=== PATIENT | male | born 1940 | race Caucasian/White ===

== ENCOUNTER 2020-06-10 07:03 | Day surgery (SDC) | payer MEDICARE, SELFPAY ==
--- NOTE | 2020-06-03 13:26 | HO.ANESPROP2 ---
Documented by User: Alexandra Martinez 06/03/20 13:34 HPI - Anesthesia Eval Consult details Narrative: 80yo M for Colonoscopy [facility] Past Medical History Medical History CAD (coronary artery disease) Diabetes Elevated cholesterol Former smoker HTN (hypertension) Insulin pump in place Surgical History Surgical History H/O colonoscopy Hx of hemorrhoidectomy Hx of lumbar discectomy Social History Social History Smoking Status: Former smoker Use of substances other than those prescribed or required for medical reasons: No Advance Directives: No Advance Directives Information Provided: Yes Recently lost weight without trying: No Narrative Narrative: Pt with [facility] admit 07/2019 with syncopal episode. Found to be orthostatic. Echo OK and BP meds adjusted. Meds Allergies Allergy/AdvReac Type Severity Reaction Status Date / Time Penicillins Allergy Severe ITCHING-SEV Verified 05/29/20 14:36 ERE piperacillin [From Zosyn] Allergy Mild JAUNDICE Verified 06/10/20 07:28 tazobactam [From Zosyn] Allergy Mild JAUNDICE Verified 06/10/20 07:28 Home Medications Medication Instructions Recorded Confirmed Type Novolog U-100 Insulin aspart 06/01/20 06/01/20 History atorvastatin 40 mg PO BEDTIME 06/01/20 06/01/20 History citalopram 20 mg PO DAILY 06/01/20 06/01/20 History gabapentin 600 mg PO 06/01/20 History losartan 100 mg PO DAILY 06/01/20 06/01/20 History glucose 06/10/20 History Exam Exam Date and Time: June 03, 2020 1326 Height,Weight and Vital Signs: Height 5 ft 6.14 in Narrative Narrative: EKG 07/2019: NSR, LAD, Incomp RBBB, LVH with repol abn ECHO 07/2019: LVEF 60-65%; mild calc of AV; mod mitral leaflet thickening; mild MAC Assessment and Plan Assessment Anesthesia Assessment: Chart Reviewed Documented by User: Veronica Green 06/10/20 08:04 PMFSH Past Medical History Medical History CAD (coronary artery disease) Diabetes Elevated cholesterol Former smoker HTN (hypertension) Insulin pump in place Surgical History Surgical History H/O colonoscopy Hx of hemorrhoidectomy Hx of lumbar discectomy Social History Social History Smoking Status: Former smoker Use of substances other than those prescribed or required for medical reasons: No Advance Directives: No Advance Directives Information Provided: Yes Recently lost weight without trying: No Meds Allergies Allergy/AdvReac Type Severity Reaction Status Date / Time Penicillins Allergy Severe ITCHING-SEV Verified 05/29/20 14:36 ERE piperacillin [From Zosyn] Allergy Mild JAUNDICE Verified 06/10/20 07:28 tazobactam [From Zosyn] Allergy Mild JAUNDICE Verified 06/10/20 07:28 Home Medications Medication Instructions Recorded Confirmed Type Novolog U-100 Insulin aspart 06/01/20 06/01/20 History atorvastatin 40 mg PO BEDTIME 06/01/20 06/01/20 History citalopram 20 mg PO DAILY 06/01/20 06/01/20 History gabapentin 600 mg PO 06/01/20 History losartan 100 mg PO DAILY 06/01/20 06/01/20 History glucose 06/10/20 History Exam Airway Mallampati Class: II TM Dist: >3cm Neck ROM: Limited Loose/Missing/Broken Teeth: No Heart: RRR Lungs: CTA Assessment and Plan Assessment Anesthesia Assessment: Anesthesia Plan Discussed Final Anesthetic Review NPO: Yes ASA Class: III Final Preanesthetic Review: Meds/Allgs Chart Reviewed, Consent Obtained/Reviewed and Anes Risks/Benef Reviewed Patient Risk: Intermediate Procedure Risk: Low Anesthetic Plan Anesthetic Plan: MAC: Disposition: Standard PACU
[2020-06-10 07:22] VITALS: BP 162/100; PULSE 75; RESP 16; TEMP 36.3; O2SAT 98; BMI 27.3
[2020-06-10 07:35] VITALS: BP 168/88; PULSE 81
--- NOTE | 2020-06-10 07:37 | MHC.SHP ---
Pre-Procedural Eval Section B Chief Complaint: Hemorrhage of Anus and Rectum Details of Present Illness: brother with rectal cancer Relevant Family History (Specify if Yes): Yes Relevant Social History: None Present Medications: see Short Stay Collaborative assessment Medical History: Significant History (CAD (coronary artery disease) Diabetes Elevated cholesterol Former smoker HTN (hypertension) Insulin pump in place) History of Previous Operations: Relevant previous surgery/procedure and date(s) (colonoscopy) Allergies: Allergies Allergy/AdvReac Type Severity Reaction Status Date / Time Penicillins Allergy Severe ITCHING-SEV Verified 05/29/20 14:36 ERE piperacillin [From Zosyn] Allergy Mild JAUNDICE Verified 06/10/20 07:28 tazobactam [From Zosyn] Allergy Mild JAUNDICE Verified 06/10/20 07:28 Review of Systems Sugical H&P ROS: Negative: Constitution, Cardiovascular, Respiratory, Neurological, Psychiatric, Hem-Onc, Allergic/Immunologic, Gastrointestinal, Genitourinary, Musculoskeletal, Integumentary, Endocrine and Eyes/Ears/Nose/Throat Exam Surgical H&P Exam: Normal: HEENT, Normal: Heart, Normal: Lungs, Normal: Extremities, Normal: Abdomen, Normal: Skin and Normal: Neurological Plan Diagnosis/Plan: Unchanged I have reviewed the history and physical and performed a pertinent physical examination on my patient. No changes have occurred unless specified.
[2020-06-10] MEDS: Lactated Ringers 1,000 ML 100 ML IVCONT (07:41)
--- NOTE | 2020-06-10 09:15 | P.BOP_ITS ---
Brief Operative Note Date of Service: 06/10/20 Pre-op diagnosis: rectal bleeding Post-op diagnosis: same Procedure: Operative Information Procedure Description: Colonoscopy COLONOSCOPY Instrument: Olympus variable stiffness pediatric scope 190L Colonoscopy Monitoring: Vital signs and clinical assessment, continuous EKG monitoring, Pulse oximetry, Carbon Dioxide monitoring and blood pressure monitoring were done throughout the procedure. Colon withdrawal time was 23 minutes. Procedure: The patient was placed in the left lateral decubitis position and pre-procedure medications were administered. After a digital rectal examination of the ano-rectum, the video colonoscope was inserted into the rectum and advanced through the colon to the cecum/TI. The colonoscope was slowly withdrawn in a retrograde panoramic fashion and the colon mucosa was carefully examined including a retroflexed view of the rectum. Findings and interventions are described below. Procedure Difficulty: easy Findings: scattered small diverticula thru out colon Rectal exam--normal, no masses felt Terminal Ileum-unable to intubate due to angulation of TI Cecum: 6-8 mm sessile polyp removed with forceps Ascending Colon: normal Transverse Colon - 8-10 mm sessile polyp removed with forceps Descending Colon:normal Sigmoid Colon: normal Rectum: Retroflexion with small to medium sized internal hemorrhoids, grade II with some red power Anorectum - internal hemorrhoids seen at anal verge Colon preparation: [place] Bowel Preparation Scale Right colon; 2 Transverse colon: 3 Left colon; 3 (0 = Unprepared colon segment with mucosa not seen due to solid stool that cannot be cleared. 1 = Portion of mucosa of the colon segment seen, but other areas of the colon segment not well seen due to staining, residual stool and/or opaque liquid. 2 = Minor amount of residual staining, small fragments of stool and/or opaque liquid, but mucosa of colon segment seen well. 3 = Entire mucosa of colon segment seen well with no residual staining, small fragments of stool or opaque liquid) Impression and Post Procedure Diagnosis: polyps x 2 internal hemorrhoids diverticular disease Plan: High fiber diet leaflet Avoid straining at stool, epsom salts and sitz bath, anusol supps or cream prn Repeat Colonoscopy in 5 years if health allows or earlier if clinically indicated Above findings were reviewed with the patient and relevant handouts were provided if indicated. Surgeon: Kemi Pelaez MD Anesthesia: MAC Estimated blood loss (mL): 0 Condition: stable Disposition: PACU
[2020-06-10 09:19] VITALS: BP 111/63; PULSE 62; RESP 14; TEMP 36.1; O2SAT 98
[2020-06-10 09:34] VITALS: BP 127/58; PULSE 65; RESP 13; TEMP 36.1; O2SAT 98
--- NOTE | 2020-06-10 10:24 | HO.POSTANES ---
Post Anesthesia Evaluation Post Anesthesia Evaluation Vital Signs: Vital Signs Temp Pulse Resp BP Pulse Ox 06/10/20 09:34 96.9 F 65 13 127/58 L 98 06/10/20 09:19 96.9 F 62 14 111/63 98 06/10/20 07:35 81 168/88 H 06/10/20 07:22 97.3 F 75 16 162/100 H 98 Anesthesia: General (tiva) Mental Status: Awake Pain Control: Satisfactory Nausea/Vomiting: None Hydration: Adequate Anesthesia-Related Issues: No Anes. Related Issues (hematoma at IV insertion site. Ice pack applied. RN to assess via telephone tomorrow.)
== END 2020-06-10 10:30 | disposition home or self-care (01) ==
PROVIDERS: PCP Internal Medicine; Visit Provider Internal Medicine Gastroenterology
PROC: 0DJD8ZZ Inspection of Lower Intestinal Tract, Via Natural or Artificial Opening Endoscopic (ICD-10-PCS; CPT 45378; principal; 2020-06-10 08:30)
DX: K62.5 Hemorrhage of anus and rectum (principal); D12.0 Benign neoplasm of cecum; K63.5 Polyp of colon; K57.30 Diverticulosis of large intestine without perforation or abscess without bleeding; K64.8 Other hemorrhoids; Z85.048 Personal history of other malignant neoplasm of rectum, rectosigmoid junction, and anus; I10 Essential (primary) hypertension; E11.9 Type 2 diabetes mellitus without complications; Z79.4 Long term (current) use of insulin; Z96.41 Presence of insulin pump (external) (internal); Z88.0 Allergy status to penicillin; Z87.891 Personal history of nicotine dependence
CPT/HCPCS: 45380; 88305

== ENCOUNTER → 2020-07-10 10:27 | Outpatient (BNVA) | payer MEDICARE, SELFPAY | PROVIDERS: PCP Internal Medicine; Visit Provider Internal Medicine Gastroenterology | DX: Z13.89 Encounter for screening for other disorder (principal) | CPT/HCPCS: Q3014 ==

== ENCOUNTER 2022-06-24 12:43 | Outpatient (REF) | payer OTHER, SELFPAY ==
[2022-06-24 14:26] LABS: MANUAL DIFF FLAG NO
[2022-06-24 15:35] LABS: Basophils Percent Auto 0.3 % (0-2); Eosinophils Percent Auto 0.2 % (0-4); Hematocrit 41.4 % (42.0-52.0); Hemoglobin 13.4 g/dl (14.0-18.0); Imm Gran Abs Auto 0.07 X10*3/uL (0.00-0.03); Imm Gran Pct Auto 0.6 % (0.0-0.4); Lymphocytes Absolute Auto 1.6 X10*3/uL (1.2-4.9); Lymphocytes Percent Auto 13.7 % (20-40); Mean Corpuscular HGB Conc 32.4 g/dl (31.0-36.0); Mean Corpuscular Hemoglobin 29.2 pg (27.0-33.0); Mean Corpuscular Volume 90.2 fL (80.0-98.0); Mean Platelet Volume 9.3 fL (9.4-12.4); Monocytes Absolute Auto 0.7 X10*3/uL (0.1-1.2); Monocytes Percent Auto 5.8 % (2-11); Neutrophils Absolute Auto 9.1 x10*3/uL (2.0-8.3); Neutrophils Percent Auto 79.4 % (45-73); Platelet Count 190 X10*3/uL (160-400); Red Blood Count 4.59 X10*6/uL (4.60-5.80); Red Cell Distribution Width 13.8 % (11.0-16.0); White Blood Count 11.4 X10*3/uL (4.8-10.8)
[2022-06-24 16:14] LABS: Alanine Aminotransferase 22 U/L (0-40); Alkaline Phosphatase 115 U/L (39-117); Anion Gap 15 (12-20); Aspartate Amino Transferase 23 U/L (5-37); Bilirubin Total 0.8 mg/dL (0.0-1.0); Blood Urea Nitrogen 20 mg/dL (9-16); C Reactive Protein < 0.10 mg/dL (< or = 0.50); Calcium 9.8 mg/dL (8.4-10.2); Carbon Dioxide 26 mmol/L (22-29); Chloride 104 mmol/L (96-108); Estimated Glomerular Filt Rate > 60; Glucose Random 123 mg/dL (60-115); Potassium 4.3 mmol/L (3.3-5.1); Sodium 141 mmol/L (135-145); Total Protein 5.9 g/dL (6.5-8.0)
[2022-06-24 17:06] LABS: Erythrocyte Sedimentation Rate 4 MM/HR (0-15)
[2022-06-27 09:09] LABS: TS Negative Control Passed; TS Panel A 3; TS Panel B 2; TS Positive Control Passed; TSpotTB Negative (Negative)
[2022-06-27 09:30] LABS: HBS Num1 0.29 mIU/mL (0-7.99); HBc Num1 0.06 S/CO (0.00-0.79); HBsAGNum1 0.26 S/CO (0.00-0.99); Hepatitis A Antibody IgM 0.22 Index (0-0.79); Hepatitis B Core Antibody Nonreactive (Nonreactive); Hepatitis B Surface Antigen Negative (Negative); ~HepC Num1 0.05 S/CO (0.00-0.79); ~Hepatitis A Antibody IgM Nonreactive (Nonreactive); ~Hepatitis B Surface Antibody NONREACTIVE (Nonreactive); ~Hepatitis C Antibody Nonreactive (Nonreactive)
== END 2022-06-24 12:44 | disposition home or self-care (01) ==
LOC: HO.LAB 12:43
PROVIDERS: PCP Internal Medicine; Visit Provider Student in an Organized Health Care Education/Training Program
DX: Z11.59 Encounter for screening for other viral diseases (principal); Z11.7 Encounter for testing for latent tuberculosis infection; M06.09 Rheumatoid arthritis without rheumatoid factor, multiple sites; M80.08XA Age-related osteoporosis with current pathological fracture, vertebra(e), initial encounter for fracture
CPT/HCPCS: 36415; 80053; 84550; 85025; 85652; 86140; 86481; 86704; 86706; 86709; 86803; 87340; 99202

== ENCOUNTER 2022-07-19 14:27 | Outpatient (REF) | payer OTHER, SELFPAY ==
--- NOTE | ~2022-07-19 | XR_ITS ---
EXAMINATION: XR KNEE, RIGHT XR KNEE, LEFT XR KNEE, STANDING, BILATERAL CLINICAL INFORMATION: Rheumatoid arthritis. COMPARISON: None TECHNIQUE: AP upright of both knees. Tunnel view lateral view and patellar view of each knee. FINDINGS: RIGHT KNEE: The medial and lateral compartments are normal. Patellofemoral compartment shows joint space narrowing and marginal osteophytes indicative of bhwd-fc-rqcaipry osteoarthritis. Small ossification adjacent to the lateral aspect of the joint likely reflecting capsular ossification but cannot exclude loose body. No effusion. Arterial calcification. LEFT KNEE: Medial and lateral compartments unremarkable. Patellofemoral compartment marginal osteophytes indicative of mild osteoarthritis. Prominent calcification or ossification within the region of the distal quadriceps tendon may be sequela of old quadriceps tendon tear or prominent enthesophytes. Small joint effusion. Arterial calcification.. XR/XR knee RT 3V IMPRESSION: RIGHT KNEE: Exwe-nb-gqsaksfl patellofemoral arthrosis. Possible loose body. LEFT KNEE: Remb-dj-djmlfcqw patellofemoral arthrosis. Possible old quadriceps tendon tear.
--- NOTE | ~2022-07-19 | XR_ITS ---
EXAMINATION: XR KNEE, RIGHT XR KNEE, LEFT XR KNEE, STANDING, BILATERAL CLINICAL INFORMATION: Rheumatoid arthritis. COMPARISON: None TECHNIQUE: AP upright of both knees. Tunnel view lateral view and patellar view of each knee. FINDINGS: RIGHT KNEE: The medial and lateral compartments are normal. Patellofemoral compartment shows joint space narrowing and marginal osteophytes indicative of faqb-gy-sfnanroo osteoarthritis. Small ossification adjacent to the lateral aspect of the joint likely reflecting capsular ossification but cannot exclude loose body. No effusion. Arterial calcification. LEFT KNEE: Medial and lateral compartments unremarkable. Patellofemoral compartment marginal osteophytes indicative of mild osteoarthritis. Prominent calcification or ossification within the region of the distal quadriceps tendon may be sequela of old quadriceps tendon tear or prominent enthesophytes. Small joint effusion. Arterial calcification.. XR/XR knee LT 3V IMPRESSION: RIGHT KNEE: Jfvr-if-zgmgkdmy patellofemoral arthrosis. Possible loose body. LEFT KNEE: Btjt-gk-cpueixls patellofemoral arthrosis. Possible old quadriceps tendon tear.
--- NOTE | ~2022-07-19 | XR_ITS ---
EXAMINATION: XR KNEE, RIGHT XR KNEE, LEFT XR KNEE, STANDING, BILATERAL CLINICAL INFORMATION: Rheumatoid arthritis. COMPARISON: None TECHNIQUE: AP upright of both knees. Tunnel view lateral view and patellar view of each knee. FINDINGS: RIGHT KNEE: The medial and lateral compartments are normal. Patellofemoral compartment shows joint space narrowing and marginal osteophytes indicative of qjbf-yu-yxoyvdyz osteoarthritis. Small ossification adjacent to the lateral aspect of the joint likely reflecting capsular ossification but cannot exclude loose body. No effusion. Arterial calcification. LEFT KNEE: Medial and lateral compartments unremarkable. Patellofemoral compartment marginal osteophytes indicative of mild osteoarthritis. Prominent calcification or ossification within the region of the distal quadriceps tendon may be sequela of old quadriceps tendon tear or prominent enthesophytes. Small joint effusion. Arterial calcification.. XR/XR knee standing BI IMPRESSION: RIGHT KNEE: Qgku-on-wpvkvftj patellofemoral arthrosis. Possible loose body. LEFT KNEE: Qgrj-qa-strtcsow patellofemoral arthrosis. Possible old quadriceps tendon tear.
== END 2022-07-19 14:28 | disposition home or self-care (01) ==
LOC: HO.XRAY 14:27
PROVIDERS: PCP Internal Medicine; Visit Provider Student in an Organized Health Care Education/Training Program
DX: M17.12 Unilateral primary osteoarthritis, left knee (principal); M06.09 Rheumatoid arthritis without rheumatoid factor, multiple sites; M80.08XA Age-related osteoporosis with current pathological fracture, vertebra(e), initial encounter for fracture; Z79.631 Long term (current) use of antimetabolite agent; Z79.899 Other long term (current) drug therapy
CPT/HCPCS: 20610; 73562; 73565; 99212

== ENCOUNTER → 2022-09-06 12:41 | Outpatient (BNVA) | payer OTHER, SELFPAY | PROVIDERS: PCP Internal Medicine; Visit Provider Student in an Organized Health Care Education/Training Program | DX: M06.09 Rheumatoid arthritis without rheumatoid factor, multiple sites (principal); M80.08XA Age-related osteoporosis with current pathological fracture, vertebra(e), initial encounter for fracture; Z79.631 Long term (current) use of antimetabolite agent | CPT/HCPCS: 99212 ==

== ENCOUNTER 2022-09-15 11:47 | Outpatient (REF) | payer OTHER, SELFPAY ==
[2022-09-15 12:06] LABS: MANUAL DIFF FLAG NO
[2022-09-15 13:25] LABS: Basophils Absolute Auto 0.1 X10*3/uL (0.0-0.2); Basophils Percent Auto 0.6 % (0-2); Eosinophils Absolute Auto 0.3 X10*3/uL (0.0-0.4); Eosinophils Percent Auto 2.1 % (0-4); Hematocrit 36.9 % (42.0-52.0); Hemoglobin 11.9 g/dl (14.0-18.0); Imm Gran Abs Auto 0.07 X10*3/uL (0.00-0.03); Imm Gran Pct Auto 0.6 % (0.0-0.4); Lymphocytes Absolute Auto 1.9 X10*3/uL (1.2-4.9); Lymphocytes Percent Auto 15.5 % (20-40); Mean Corpuscular HGB Conc 32.2 g/dl (31.0-36.0); Mean Corpuscular Hemoglobin 28.9 pg (27.0-33.0); Mean Corpuscular Volume 89.6 fL (80.0-98.0); Mean Platelet Volume 9.3 fL (9.4-12.4); Monocytes Absolute Auto 1.3 X10*3/uL (0.1-1.2); Monocytes Percent Auto 10.8 % (2-11); Neutrophils Absolute Auto 8.4 x10*3/uL (2.0-8.3); Neutrophils Percent Auto 70.4 % (45-73); Platelet Count 221 X10*3/uL (160-400); Red Blood Count 4.12 X10*6/uL (4.60-5.80); Red Cell Distribution Width 16.9 % (11.0-16.0)
[2022-09-15 13:55] LABS: Alanine Aminotransferase 20 U/L (0-40); Albumin Level 3.7 g/dL (3.5-5.0); Alkaline Phosphatase 107 U/L (39-117); Anion Gap 13 (12-20); Aspartate Amino Transferase 20 U/L (5-37); Bilirubin Total 0.8 mg/dL (0.0-1.0); Blood Urea Nitrogen 23 mg/dL (9-16); C Reactive Protein < 0.10 mg/dL (< or = 0.50); Calcium 8.9 mg/dL (8.4-10.2); Carbon Dioxide 26 mmol/L (22-29); Chloride 105 mmol/L (96-108); Estimated Glomerular Filt Rate > 60; Glucose Random 154 mg/dL (60-115); Potassium 4.1 mmol/L (3.3-5.1); Sodium 140 mmol/L (135-145); Total Protein 5.4 g/dL (6.5-8.0)
[2022-09-15 14:04] LABS: Erythrocyte Sedimentation Rate 9 MM/HR (0-15)
== END 2022-09-15 11:48 | disposition home or self-care (01) ==
LOC: HO.LAB 11:47
PROVIDERS: PCP Internal Medicine; Visit Provider Student in an Organized Health Care Education/Training Program
DX: M06.9 Rheumatoid arthritis, unspecified (principal)
CPT/HCPCS: 36415; 80053; 85025; 85652; 86140

== ENCOUNTER 2022-10-25 08:33 | Outpatient (REF) | payer OTHER, SELFPAY ==
[2022-10-25 08:50] LABS: MANUAL DIFF FLAG NO
[2022-10-25 09:28] LABS: Basophils Percent Auto 0.3 % (0-2); Eosinophils Percent Auto 0.6 % (0-4); Hematocrit 38.9 % (42.0-52.0); Hemoglobin 12.2 g/dl (14.0-18.0); Imm Gran Abs Auto 0.04 X10*3/uL (0.00-0.03); Imm Gran Pct Auto 0.6 % (0.0-0.4); Lymphocytes Absolute Auto 2.5 X10*3/uL (1.2-4.9); Lymphocytes Percent Auto 34.9 % (20-40); Mean Corpuscular HGB Conc 31.4 g/dl (31.0-36.0); Mean Corpuscular Hemoglobin 28.9 pg (27.0-33.0); Mean Corpuscular Volume 92.2 fL (80.0-98.0); Mean Platelet Volume 9.3 fL (9.4-12.4); Monocytes Absolute Auto 0.9 X10*3/uL (0.1-1.2); Monocytes Percent Auto 13.2 % (2-11); Neutrophils Absolute Auto 3.6 x10*3/uL (2.0-8.3); Neutrophils Percent Auto 50.4 % (45-73); Platelet Count 146 X10*3/uL (160-400); Red Blood Count 4.22 X10*6/uL (4.60-5.80); Red Cell Distribution Width 17.6 % (11.0-16.0)
[2022-10-25 10:08] LABS: Erythrocyte Sedimentation Rate 7 MM/HR (0-15)
[2022-10-25 12:10] LABS: Alanine Aminotransferase 26 U/L (0-40); Albumin Level 3.7 g/dL (3.5-5.0); Alkaline Phosphatase 104 U/L (39-117); Anion Gap 13 (12-20); Aspartate Amino Transferase 25 U/L (5-37); Blood Urea Nitrogen 13 mg/dL (9-16); C Reactive Protein 0.57 mg/dL (< or = 0.50); Carbon Dioxide 27 mmol/L (22-29); Chloride 107 mmol/L (96-108); Estimated Glomerular Filt Rate > 60; Glucose Random 153 mg/dL (60-115); Potassium 3.8 mmol/L (3.3-5.1); Sodium 143 mmol/L (135-145); Total Protein 5.4 g/dL (6.5-8.0)
== END 2022-10-25 08:34 | disposition home or self-care (01) ==
LOC: HO.LAB 08:33
PROVIDERS: PCP Internal Medicine; Visit Provider Student in an Organized Health Care Education/Training Program
DX: Z79.631 Long term (current) use of antimetabolite agent (principal)
CPT/HCPCS: 36415; 80053; 85025; 85652; 86140

== ENCOUNTER → 2022-10-28 10:10 | Outpatient (BNVA) | payer OTHER, SELFPAY | PROVIDERS: PCP Internal Medicine; Visit Provider Student in an Organized Health Care Education/Training Program | DX: M06.09 Rheumatoid arthritis without rheumatoid factor, multiple sites (principal); M80.08XA Age-related osteoporosis with current pathological fracture, vertebra(e), initial encounter for fracture; R22.9 Localized swelling, mass and lump, unspecified | CPT/HCPCS: 99212 ==

== ENCOUNTER → 2022-11-09 09:39 | Outpatient (BNVA) | payer OTHER, SELFPAY | PROVIDERS: PCP Internal Medicine; Referring Provider Internal Medicine; Visit Provider Surgery | DX: M06.30 Rheumatoid nodule, unspecified site (principal) | CPT/HCPCS: 99202 ==

== ENCOUNTER 2022-11-10 10:45 | Day surgery (SDC) | payer OTHER, SELFPAY ==
[2022-11-08 13:52] VITALS: BMI 28.2
--- NOTE | 2022-11-09 12:45 | P.CONAN_ITS ---
Documented by User: Alexanrda Martinez NP 11/09/22 12:49 HPI - Anesthesia Eval Consult details Narrative: 82yo M for Upper Endoscopy Follows Dr Wallace for cardiology. Last office eval 08/2022. 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 (Acute) Methotrexate, [place], current use (Acute) Osteoarthritis of left knee (Acute) Multiple skin nodules (Acute) Past Medical History Medical History Aortic stenosis CAD (coronary artery disease) Carpal tunnel syndrome Diabetes Elevated cholesterol Former smoker HTN (hypertension) Insulin pump in place Family History Family History Father Heart attack Heart disease Mother Pacemaker Cataracts, bilateral Sister Heart problem Heart valve replaced Arthritis Brother Heart attack Brother Rectal cancer Sister History of modified radical mastectomy of right breast Surgical History Surgical History H/O colonoscopy History of cholecystectomy History of hand surgery History of shoulder surgery Hx of cardiac catheterization Hx of hemorrhoidectomy Hx of lumbar discectomy Social History Social History Household Members: None Are you a primary care professional to a significant other at home: No Do you presently have visiting nurse or other home services: No Alcohol intake: never Patient Tobacco Use Status: Former Tobacco user Quit Date: 1961 Tobacco use type: Cigarette Years Smoked: 5 YEARS Current occupational status: employed Current occupation: [employer] Meds Allergies Allergy/AdvReac Type Severity Reaction Status Date / Time Penicillins Allergy Severe ITCHING-SEV Verified 11/09/22 09:49 ERE piperacillin [From Zosyn] Allergy Mild JAUNDICE Verified 11/09/22 09:49 tazobactam [From Zosyn] Allergy Mild JAUNDICE Verified 11/09/22 09:49 Home Medications Medication Instructions Recorded Confirmed Last Taken Type Novolog U-100 Insulin aspart 06/01/20 09/06/22 Unknown History atorvastatin 40 mg tablet 40 mg PO BEDTIME 06/01/20 11/08/22 Unknown History glucose 06/10/20 09/06/22 06/10/20 History tamsulosin 0.4 mg capsule 0.4 mg PO BEDTIME 06/24/22 11/08/22 Unknown History vitamins A,C,N-qcqz-ylczpn 4,296 1 cap PO BID 06/24/22 11/08/22 Unknown History mcg-226 mg-90 mg capsule (PreserVision AREDS) acetaminophen 650 mg 650 mg PO Q8H PRN Pain 09/06/22 11/08/22 Unknown History tablet,extended release (Tylenol 8 Hour) amlodipine 2.5 mg tablet 2.5 mg PO DAILY 09/06/22 11/08/22 Unknown History calcium amino acid chelate 200 mg 1,000 mg PO DAILY 09/06/22 11/08/22 Unknown History calcium tablet citalopram 20 mg tablet 20 mg PO DAILY 09/06/22 11/08/22 Unknown History cyclobenzaprine 10 mg tablet 10 mg PO BID PRN Muscle Spasm 09/06/22 11/08/22 Unknown History denosumab 60 mg/mL subcutaneous 60 mg subcut [id number] 09/06/22 11/08/22 Unknown History syringe (Prolia) gabapentin 600 mg tablet 600 mg PO TID 09/06/22 11/08/22 Unknown History pilocarpine HCl 5 mg tablet 5 mg PO BID 09/06/22 11/08/22 Unknown History testosterone 50 mg/5 gram (1 %) 1 tube transdermal QAM 09/06/22 11/08/22 Unknown History transdermal gel Exam Exam Date and Time: November 09, 2022 1245 Height,Weight and Vital Signs: Height 5 ft 7 in Weight 81.647 kg Narrative Narrative: ECHO 06/2022 EF 55-60% Paradoxical septal motion, concentric hypertrophy, mild thickening of aortic valve with moderate aortic stenosis Assessment and Plan Assessment Anesthesia Assessment: Chart Reviewed Documented by User: Javi Sol MD 11/10/22 18:17 [facility] Past Medical History Medical History Aortic stenosis CAD (coronary artery disease) Carpal tunnel syndrome Diabetes Elevated cholesterol Former smoker HTN (hypertension) Insulin pump in place Functional capacity: independent ambulation Family History Family History Father Heart attack Heart disease Mother Pacemaker Cataracts, bilateral Sister Heart problem Heart valve replaced Arthritis Brother Heart attack Brother Rectal cancer Sister History of modified radical mastectomy of right breast Family history of problems with anesthesia: No Surgical History Surgical History H/O colonoscopy History of cholecystectomy History of hand surgery History of shoulder surgery Hx of cardiac catheterization Hx of hemorrhoidectomy Hx of lumbar discectomy History of Problems with Anesthesia: No Social History Social History Household Members: None Are you a primary care professional to a significant other at home: No Do you presently have visiting nurse or other home services: No Alcohol intake: never Patient Tobacco Use Status: Former Tobacco user Quit Date: 1961 Tobacco use type: Cigarette Years Smoked: 5 YEARS Current occupational status: employed Current occupation: [employer] Meds Allergies Allergy/AdvReac Type Severity Reaction Status Date / Time Penicillins Allergy Severe ITCHING-SEV Verified 11/09/22 09:49 ERE piperacillin [From Zosyn] Allergy Mild JAUNDICE Verified 11/09/22 09:49 tazobactam [From Zosyn] Allergy Mild JAUNDICE Verified 11/09/22 09:49 Home Medications Medication Instructions Recorded Confirmed Last Taken Type Novolog U-100 Insulin aspart 06/01/20 09/06/22 Unknown History atorvastatin 40 mg tablet 40 mg PO BEDTIME 06/01/20 11/08/22 Unknown History glucose 06/10/20 09/06/22 06/10/20 History tamsulosin 0.4 mg capsule 0.4 mg PO BEDTIME 06/24/22 11/08/22 Unknown History vitamins A,C,W-kphh-imvpqf 4,296 1 cap PO BID 06/24/22 11/08/22 Unknown History mcg-226 mg-90 mg capsule (PreserVision AREDS) acetaminophen 650 mg 650 mg PO Q8H PRN Pain 09/06/22 11/08/22 Unknown History tablet,extended release (Tylenol 8 Hour) amlodipine 2.5 mg tablet 2.5 mg PO DAILY 09/06/22 11/08/22 Unknown History calcium amino acid chelate 200 mg 1,000 mg PO DAILY 09/06/22 11/08/22 Unknown History calcium tablet citalopram 20 mg tablet 20 mg PO DAILY 09/06/22 11/08/22 Unknown History cyclobenzaprine 10 mg tablet 10 mg PO BID PRN Muscle Spasm 09/06/22 11/08/22 Unknown History denosumab 60 mg/mL subcutaneous 60 mg subcut [id number] 09/06/22 11/08/22 Unknown History syringe (Prolia) gabapentin 600 mg tablet 600 mg PO TID 09/06/22 11/08/22 Unknown History pilocarpine HCl 5 mg tablet 5 mg PO BID 09/06/22 11/08/22 Unknown History testosterone 50 mg/5 gram (1 %) 1 tube transdermal QAM 09/06/22 11/08/22 Unknown History transdermal gel Exam Airway Mallampati Class: IV TM Dist: >3cm Neck ROM: Full Loose/Missing/Broken Teeth: Yes ( multiple chipped teeth, poor dentition overall ) Assessment and Plan Assessment Anesthesia Assessment: Anesthesia Plan Discussed Final Anesthetic Review Family History of Problems with Anesthesia: No History of Problems with Anesthesia: No NPO: Yes ASA Class: III Final Preanesthetic Review: Meds/Allgs Chart Reviewed, Consent Obtained/Reviewed and Anes Risks/Benef Reviewed Patient Risk: Intermediate Procedure Risk: Intermediate Anesthetic Plan Anesthetic Plan: MAC: and Agree w/ Assess. and Plan Disposition: Standard PACU
[2022-11-10 11:14] VITALS: BP 163/74; PULSE 65; RESP 16; TEMP 36.3; O2SAT 97; BMI 27.4
[2022-11-10 11:27] LABS: Glucose, Whole Blood 126 mg/dL (60-115)
--- NOTE | 2022-11-10 12:33 | MHC.SHP ---
Pre-Procedural Eval Section A Date of Service: 11/10/22 Section B Chief Complaint: Anemia,unspecified Details of Present Illness: easy bruising -on steroids, also has As Relevant Family History (Specify if Yes): No Relevant Social History: None Present Medications: see Short Stay Collaborative assessment Medical History: Significant History (Aortic stenosis CAD (coronary artery disease) Carpal tunnel syndrome Diabetes Elevated cholesterol Former smoker HTN (hypertension) Insulin pump in place) History of Previous Operations: Relevant previous surgery/procedure and date(s) (H/O colonoscopy History of cholecystectomy History of hand surgery History of shoulder surgery Hx of cardiac catheterization Hx of hemorrhoidectomy Hx of lumbar discectomy) Allergies: Allergies Allergy/AdvReac Type Severity Reaction Status Date / Time Penicillins Allergy Severe ITCHING-SEV Verified 11/09/22 09:49 ERE piperacillin [From Zosyn] Allergy Mild JAUNDICE Verified 11/09/22 09:49 tazobactam [From Zosyn] Allergy Mild JAUNDICE Verified 11/09/22 09:49 Review of Systems Sugical H&P ROS: Negative: Constitution, Cardiovascular, Respiratory, Neurological, Psychiatric, Hem-Onc, Allergic/Immunologic, Gastrointestinal, Genitourinary, Musculoskeletal, Integumentary, Endocrine and Eyes/Ears/Nose/Throat Exam Surgical H&P Exam: Normal: HEENT, Normal: Lungs, Normal: Extremities, Normal: Abdomen and Normal: Neurological and Significant Findings: Heart (ESM 3/6 ) and Significant Findings: Skin (bruising) Plan Diagnosis/Plan: Unchanged I have reviewed the history and physical and performed a pertinent physical examination on my patient. No changes have occurred unless specified. EGd for assessment for anemia, could be from , bruising and steroid use Time Spent With Patient Time: Total time managing care of this patient today ____ minutes.
--- NOTE | 2022-11-10 12:35 | W.PM.OPN ---
Operative Note Operative Note Date of Service: 11/10/22 Narrative: Procedure Description: EGD Indication: anemia Anesthesia: MAC FLEXIBLE TRANSORAL UPPER GASTROINTESTINAL ENDOSCOPY UPPER ENDOSCOPY Consent: Indications for the procedure and potential complications of bleeding, perforation, reaction to medications and missed diagnosis were discussed with the patient and informed consent was obtained. Instrument: Olympus GIF H 190 J mid size upper endoscope Monitoring: Vital signs and clinical assessment, continuous EKG monitoring, Pulse oximetry, Carbon Dioxide monitoring and blood pressure monitoring were done throughout the procedure. Procedure: The patient was placed in the left lateral decubitis position and pre-procedure medications were administered and a bite block was placed. The endoscope was inserted into the mouth and advanced under direct vision to the third part of duodenum. A careful inspection was made as the upper endoscope was withdrawn including a retroflexed examination of the proximal stomach; Findings and interventions are described below. Findings: Larynx:normal Esophagus: GE junction at 40 cm, diaphragm hiatus at 40 cm, midl esophagitis Stomach: Patchy gastric erythema with surrounding pill sediment in the mid body. Biopsies were obtained to r/o h pylori. Grade 2 flap valve on retroflexed examination of the cardia. Duodenum: Normal bulb and descending duodenum, bx taken to r/o celiac Intervention: Biopsies as noted above Impression/Findings: esophagitis pill related gastritis, possibly from supplements, steroid use PLAN: Take vitamins and supplements with food and plenty of fluids he is tapering down on steroids, confirm compliance with PPI
--- NOTE | 2022-11-10 12:47 | PC.NURSE ---
patient unable to change basal rate on insulin pump per our instructions. pt called [facility] and was told only his md could change. Per Dr Sol he is to turn off insulin pump and recheck sugar. POC dropped from 126 to 92. patient asymptomatic. Per Dr Sol verbal order to hang D5 100ml
[2022-11-10 12:52] LABS: Glucose, Whole Blood 92 mg/dL (60-115)
[2022-11-10 13:03] VITALS: BP 111/57; PULSE 56; RESP 16; TEMP 36.4; O2SAT 98
[2022-11-10 13:18] VITALS: BP 114/55; PULSE 64; RESP 16; O2SAT 98
[2022-11-10 13:29] LABS: Glucose, Whole Blood 100 mg/dL (60-115)
[2022-11-10 13:33] VITALS: BP 120/61; PULSE 60; RESP 18; TEMP 36.3; O2SAT 97
== END 2022-11-10 14:29 | disposition home or self-care (01) ==
PROVIDERS: PCP Internal Medicine; Visit Provider Internal Medicine Gastroenterology
PROC: 0DJ08ZZ Inspection of Upper Intestinal Tract, Via Natural or Artificial Opening Endoscopic (ICD-10-PCS; CPT 43235; principal; 2022-11-10 11:30)
DX: D64.9 Anemia, unspecified (principal); K29.60 Other gastritis without bleeding; K20.80 Other esophagitis without bleeding; K44.9 Diaphragmatic hernia without obstruction or gangrene; R23.3 Spontaneous ecchymoses; I25.10 Atherosclerotic heart disease of native coronary artery without angina pectoris; I10 Essential (primary) hypertension; E78.00 Pure hypercholesterolemia, unspecified; I35.0 Nonrheumatic aortic (valve) stenosis; E11.9 Type 2 diabetes mellitus without complications; Z79.4 Long term (current) use of insulin; Z96.41 Presence of insulin pump (external) (internal); Z79.52 Long term (current) use of systemic steroids; Z79.899 Other long term (current) drug therapy; Z88.0 Allergy status to penicillin; Z88.1 Allergy status to other antibiotic agents; Z90.49 Acquired absence of other specified parts of digestive tract; Z98.890 Other specified postprocedural states; Z87.891 Personal history of nicotine dependence
CPT/HCPCS: 43239; 82947; 88305; 88342

== ENCOUNTER → 2022-11-21 11:10 | Outpatient (BNVA) | payer OTHER, SELFPAY | PROVIDERS: PCP Internal Medicine; Visit Provider Internal Medicine Gastroenterology | DX: D64.9 Anemia, unspecified (principal); K29.70 Gastritis, unspecified, without bleeding | CPT/HCPCS: 99212 ==

== ENCOUNTER → 2022-11-23 09:29 | Outpatient (BNVA) | payer OTHER, SELFPAY | PROVIDERS: PCP Internal Medicine; Visit Provider Surgery | DX: M06.30 Rheumatoid nodule, unspecified site (principal) | CPT/HCPCS: 99212 ==

== ENCOUNTER 2022-12-24 13:54 | Emergency (ER) | payer OTHER, MEDICARE, SELFPAY ==
[2022-12-24 14:03] VITALS: BP 131/66; BP 145/90; PULSE 50; PULSE 53; RESP 16; TEMP 36.7; O2SAT 97; BMI 27.4
[2022-12-24 15:19] LABS: Alanine Aminotransferase 27 U/L (0-40); Albumin Level 3.5 g/dL (3.5-5.0); Alkaline Phosphatase 85 U/L (39-117); Anion Gap 15 (12-20); Aspartate Amino Transferase 26 U/L (5-37); Bilirubin Direct 0.2 mg/dL (0.0-0.5); Bilirubin Total 0.8 mg/dL (0.0-1.0); Blood Urea Nitrogen 26 mg/dL (9-16); Calcium 9.4 mg/dL (8.4-10.2); Carbon Dioxide 23 mmol/L (22-29); Chloride 109 mmol/L (96-108); Creatinine Clr Calc Pharmacy 60.3; Estimated Glomerular Filt Rate > 60; Glucose Random 100 mg/dL (60-115); Magnesium 2.1 mg/dL (1.6-2.6); Potassium 4.7 mmol/L (3.3-5.1); Sodium 142 mmol/L (135-145); Total Protein 5.5 g/dL (6.5-8.0)
--- NOTE | 2022-12-24 15:23 | PC.NURSE ---
pt states that he does not need to be on any sort of restrictions being a diabetic, that his doctor told him to keep doing what hes doing, his levels are great.
--- NOTE | 2022-12-24 15:55 | ED.DIZZY ---
HPI - Dizziness General Chief Complaint: Dizziness Stated Complaint: Dizziness per EMS Time Seen by Provider: 12/24/22 15:55 Source: patient and old records reviewed Mode of arrival: ambulatory Limitations: no limitations History of Present Illness HPI Narrative: 82 yo male with history of RA and PMR on chronic steroids & methotrexate aortic stenosis, DM on insulin, HLD, CAD, OA, anemia, gastritis, hemorrhoids, osteoporosis w/ multiple vertebral fractures in 2021 who presents to the ER for evaluation of recurrent episodic dizziness and presyncope along with vision changes that have been occurring for the last month but getting worse. He states the episodes mostly happen with exertion and physical activity and he needs to stop what he is doing. He states he also gets SOB after a few minutes of exertion as well. No chest pains. No weakness, numbness, or tingling. He states his has been getting transient episodes of blurred vision or double vision that occur randomly, today he was in the car when it happened for a couple minutes. He had a MRI at [facility] 2 weeks ago [facility] but he does not know the results. MD elicited complaint: dizziness, lightheadedness, near syncope and other (vision changes) Pertinent past history: anemia Onset (ago): week(s) (3) Timing: sudden onset and intermittent Description: lightheadedness and near-syncope Context: exertion History of similar symptoms: Yes Exacerbating factors: exertion Relieving factors: rest Associated symptoms: shortness of breath Associated neuro symptoms: diplopia and vision changes Stroke scale total: 0 Related Data Home Medications Medication Instructions Recorded Confirmed Novolog U-100 Insulin aspart 80 units subcut (via wearable 06/01/20 12/24/22 injectr) DAILY atorvastatin 40 mg tablet 40 mg PO BEDTIME 06/01/20 12/24/22 tamsulosin 0.4 mg capsule 0.4 mg PO BEDTIME 06/24/22 12/24/22 vitamins A,C,C-[id number]-[id number] 4,296 1 cap PO TID 06/24/22 12/24/22 mcg-226 mg-90 mg capsule (PreserVision AREDS) acetaminophen 650 mg 650 mg PO Q8H PRN Pain 09/06/22 12/24/22 tablet,extended release (Tylenol 8 Hour) amlodipine 2.5 mg tablet 2.5 mg PO DAILY 09/06/22 12/24/22 citalopram 20 mg tablet 20 mg PO DAILY 09/06/22 12/24/22 cyclobenzaprine 10 mg tablet 10 mg PO DAILY 09/06/22 12/24/22 gabapentin 600 mg tablet 600 mg PO TID 09/06/22 12/24/22 cholecalciferol (vitamin D3) 50 50 mcg PO BID 11/21/22 12/24/22 mcg (2,000 unit) capsule calcium citrate 200 mg (950 mg) 800 mg PO BID 12/24/22 12/24/22 tablet etanercept 50 mg/mL (1 mL) 50 mg subcut HERNANDEZ 12/24/22 12/24/22 subcutaneous pen injector (Enbrel [email or web address]) Previous Rx's Medication Instructions Recorded omeprazole 20 mg capsule,delayed 20 mg PO BID 90 days #180 caps 10/13/21 release hydroxychloroquine 200 mg tablet 200 mg PO BID #180 tabs 08/17/22 prednisone 10 mg tablet 10 mg PO DAILY #60 tabs 12/07/22 pilocarpine HCl 5 mg tablet 5 mg PO BID #180 tabs 12/14/22 Allergies Allergy/AdvReac Type Severity Reaction Status Date / Time Penicillins Allergy Severe ITCHING-SEV Verified 11/23/22 09:39 ERE piperacillin [From Zosyn] Allergy Mild JAUNDICE Verified 11/23/22 09:39 tazobactam [From Zosyn] Allergy Mild JAUNDICE Verified 11/23/22 09:39 [facility] Past Medical History Medical History Aortic stenosis CAD (coronary artery disease) Carpal tunnel syndrome Diabetes Elevated cholesterol Former smoker HTN (hypertension) Insulin pump in place Surgical History H/O colonoscopy History of cholecystectomy History of hand surgery History of shoulder surgery Hx of cardiac catheterization Hx of hemorrhoidectomy Hx of lumbar discectomy Family History Family History Father Heart attack Heart disease Mother Pacemaker Cataracts, bilateral Sister Heart problem Heart valve replaced Arthritis Brother Heart attack Brother Rectal cancer Sister History of modified radical mastectomy of right breast Social History Social History Household Members: None Are you a primary child care attendant school to a significant other at home: No Do you presently have visiting nurse or other home services: No Alcohol intake: never Patient Tobacco Use Status: Former Tobacco user Quit Date: 1963 Tobacco use type: Cigarette Years Smoked: 5 YEARS Smoked in Last 30 Days: No Use of substances other than those prescribed or required for medical reasons: No Advance Directives: No Advance Directives Information Provided: Yes Current occupational status: employed Current occupation: [employer] Physical Exam Vital Signs: Vital Signs: Last Vital Signs Temp 98.0 F 12/24/22 14:03 Pulse 60 12/24/22 16:07 Resp 16 12/24/22 14:03 BP 113/54 L 12/24/22 16:07 Pulse Ox 97 12/24/22 14:03 O2 Del Method Room Air 12/24/22 14:03 BMI result Body Mass Index 27.4 Appearance: Alert. Oriented X3. No acute distress. Head: normocephalic, atraumatic. Eyes: Pupils equal, round and reactive to light. ENT: Pharynx normal. No tonsillar swelling or exudate. Neck: Normal inspection. Neck supple. No JVD CVS: Normal heart rate and rhythm. 3/5 systolic murmur best heard in the right sternal border Respiratory: No respiratory distress. Breath sounds normal. Abdomen: Soft and nontender. +BS x4 Skin: Skin warm and dry. Normal skin color. Normal skin turgor. No rashes. Extremities: No lower extremity edema. No joint swelling. Neuro/psych: Oriented X 3. No motor deficit. No sensory deficit. CN II-XII intact. Normal speech and cognition. Steady gait. Normal cerebellar exam. Medications Administered Discontinued Medications Generic Name Dose Route Start Last Admin Trade Name Freq PRN Reason Stop Dose Admin Sodium Chloride 1,000 mls @ 999 mls/hr 12/24/22 17:00 12/24/22 18:03 Ns IVCONT 12/24/22 18:00 999 mls/hr .Q1H1M [facility] Administration Medical Decision Making Medical Decision Making MDM Narrative: 82 yo male with history of RA and PMR on chronic steroids & methotrexate aortic stenosis, DM on insulin, HLD, CAD, OA, anemia, gastritis, hemorrhoids, osteoporosis w/ multiple verterbral fracutres in 2021 who presetns to the ER for evaluation of recurrent episodic dizziness and presyncope along with vision changes that have been occurring for the last month but getting worse. Records obtained from [facility] - MRI done 12/05 showing no acute infarct, mass effect, or intracranial hemorrhage. Mild chronic small vessel ischemic changes throughout the supratentorial white matter with mild diffuse cerebral volume loss. Attempted to get ECHO from [facility] where he sees Dr. Bain for Cardiology but there is reportedly no ECHO or Cards notes. He has significant systolic murmur on exam c/w aortic stenosis. Concerned his may be causing his symptoms, however he has no angina. His lab workup today is unremarkable. Orthostatics negative. CT head today unremarkable. Patient currently hemodynamically stable and symptom free. Normal vision right now. Nonfocal neuro exam. Spoke w/ Dr. Flores and Dr. Lugo the nocturist - agreed to discharge home w/ outpatient cards follow up. Return precautions discussed. Comfortable w/ d.c home. Differential Diagnosis Differential Diagnoses: The differential diagnosis associated with the presentation includes symptomatic aortic stenosis, orthostatic hypotension, TIA, CVA, symptomatic bradycardia Admission/Observation Consideration of admission/observation: Escalation of care including admission/observation considered elderly male with multiple comorbidities presenting with recurrent dizziness and pre-syncope, considered admission Consult Healthcare Provider Management of the patient was discussed with: Hospitalist case d/w Dr. Lugo and Dr. Torres - recommending discharge with close outpatient follow up. Lab Data MDM Lab Attestation statement: I reviewed the patient's lab results. stable anemia, no significant metabolic derrangement 12/24/22 14:56 12/24/22 14:56 Labs: Lab Results 12/24/22 12/24/22 12/24/22 Range/Units 14:56 14:56 14:56 WBC 9.4 (4.8-10.8) X10*3/uL RBC 4.38 L (4.60-5.80) X10*6/uL Hgb 12.4 L (14.0-18.0) g/dl Hct 39.6 L (42.0-52.0) % MCV 90.4 (80.0-98.0) fL MCH 28.3 (27.0-33.0) pg MCHC 31.3 (31.0-36.0) g/dl RDW 15.7 (11.0-16.0) % Plt Count 144 L (160-400) X10*3/uL MPV 9.3 L (9.4-12.4) fL Immature Gran % (Auto) 0.4 (0.0-0.4) % Neut % (Auto) 70.3 (45-73) % Lymph % (Auto) 21.2 (20-40) % [place] % (Auto) 7.4 (2-11) % Eos % (Auto) 0.4 (0-4) % Baso % (Auto) 0.3 (0-2) % Lymph # (Auto) 2.0 (1.2-4.9) X10*3/uL [place] # (Auto) 0.7 (0.1-1.2) X10*3/uL Eos # (Auto) 0.0 (0.0-0.4) X10*3/uL Baso # (Auto) 0.0 (0.0-0.2) X10*3/uL Abs Immat Gran (auto) 0.04 H (0.00-0.03) X10*3/uL Absolute Neuts (auto) 6.6 (2.0-8.3) x10*3/uL Absolute Nucleated RBC 0.000 (0.0-0.012) X10*3/uL Nucleated RBC % (auto) 0.0 (0.0-0.2) /100WBC PT (10.0-13.1) SEC INR (0.9-1.1) Sodium 142 (135-145) mmol/L Potassium 4.7 D (3.3-5.1) mmol/L Chloride 109 H (96-108) mmol/L Carbon Dioxide 23 (22-29) mmol/L Anion Gap 15 (12-20) BUN 26 H (9-16) mg/dL Creatinine 0.92 (0.5-1.4) mg/dL Estim Creat Clear Calc 60.3 Estimated GFR > 60 Random Glucose 100 (60-115) mg/dL Calcium 9.4 (8.4-10.2) mg/dL Magnesium 2.1 (1.6-2.6) mg/dL Total Bilirubin 0.8 (0.0-1.0) mg/dL Direct Bilirubin 0.2 (0.0-0.5) mg/dL AST 26 (5-37) U/L ALT 27 (0-40) U/L Alkaline Phosphatase 85 (39-117) U/L Troponin I High Sens 10.6 (<3.5-35.0) ng/L Total Protein 5.5 L (6.5-8.0) g/dL Albumin 3.5 (3.5-5.0) g/dL Urine Color Urine Appearance Urine pH (5.0-9.0) Ur Specific [place] (1.005-1.025) Urine Protein (Neg-Trace) mg/dL Urine Glucose (UA) (Negative) mg/dL Urine Ketones (Negative) mg/dL Urine Blood (Negative) Urine Nitrite (Negative) Ur Leukocyte Esterase (Negative) COVID-19 (TOOTIE) (Negative) COVID-19 Clin Com 12/24/22 12/24/22 12/24/22 Range/Units 14:56 14:56 15:13 WBC (4.8-10.8) X10*3/uL RBC (4.60-5.80) X10*6/uL Hgb (14.0-18.0) g/dl Hct (42.0-52.0) % MCV (80.0-98.0) fL MCH (27.0-33.0) pg MCHC (31.0-36.0) g/dl RDW (11.0-16.0) % Plt Count (160-400) X10*3/uL MPV (9.4-12.4) fL Immature Gran % (Auto) (0.0-0.4) % Neut % (Auto) (45-73) % Lymph % (Auto) (20-40) % [place] % (Auto) (2-11) % Eos % (Auto) (0-4) % Baso % (Auto) (0-2) % Lymph # (Auto) (1.2-4.9) X10*3/uL [place] # (Auto) (0.1-1.2) X10*3/uL Eos # (Auto) (0.0-0.4) X10*3/uL Baso # (Auto) (0.0-0.2) X10*3/uL Abs Immat Gran (auto) (0.00-0.03) X10*3/uL Absolute Neuts (auto) (2.0-8.3) x10*3/uL Absolute Nucleated RBC (0.0-0.012) X10*3/uL Nucleated RBC % (auto) (0.0-0.2) /100WBC PT 11.2 (10.0-13.1) SEC INR 1.0 (0.9-1.1) Sodium (135-145) mmol/L Potassium (3.3-5.1) mmol/L Chloride (96-108) mmol/L Carbon Dioxide (22-29) mmol/L Anion Gap (12-20) BUN (9-16) mg/dL Creatinine (0.5-1.4) mg/dL Estim Creat Clear Calc Estimated GFR Random Glucose (60-115) mg/dL Calcium (8.4-10.2) mg/dL Magnesium (1.6-2.6) mg/dL Total Bilirubin (0.0-1.0) mg/dL Direct Bilirubin (0.0-0.5) mg/dL AST (5-37) U/L ALT (0-40) U/L Alkaline Phosphatase (39-117) U/L Troponin I High Sens (<3.5-35.0) ng/L Total Protein (6.5-8.0) g/dL Albumin (3.5-5.0) g/dL Urine Color Yellow Urine Appearance Clear Urine pH 6.5 (5.0-9.0) Ur Specific [place] 1.025 (1.005-1.025) Urine Protein Trace (Neg-Trace) mg/dL Urine Glucose (UA) Negative (Negative) mg/dL Urine Ketones Trace (Negative) mg/dL Urine Blood Negative (Negative) Urine Nitrite Negative (Negative) Ur Leukocyte Esterase Negative (Negative) COVID-19 (TOOTIE) Negative (Negative) COVID-19 Clin Com See Note Independent Interpretation I performed an independent interpretation of an: CT Scan Interpretation: CT head reviewed - no acute bleed or edema EKG - sinus bradycardia, HR 58 bpm, t-wave inversions in leads III, aVF, V5-V6, no ST segment elevations CXR with cardiomegaly, no infiltrate Radiology Impression Discussion of test interpretation with radiology: I have reviewed the radiologist's reading. Radiologist Impression: ?CT/CT head/brain wo IV con IMPRESSION: No acute intracranial process seen ?XR/XR chest 1V IMPRESSION: . Mild cardiomegaly. No acute process seen. External Record Review External record reviewed: Office record, Outpatient record and Prior outpatient labs Chronic Conditions Patient?s care impacted by: Other (anemia, RA, PMR, murmur) Discharge Plan Discharge Clinical Impression: Dizziness, Changes in vision, Bradycardia, sinus Patient Disposition: Home, Self-Care Instructions: Dizziness (ED) Additional Instructions: Your lab work up, EKG, CT scan and testing today in the ER was unremarkable. Recommend rest, no strenuous activity You need to follow up with your Long Term Care Social Worker for further evaluation If you develop new or worsening symptoms call 911 or come back to the ER for further evaluation. Prescriptions: No Action omeprazole 20 mg capsule,delayed release(DR/EC) 20 mg PO BID 90 Days Qty: 180 3RF hydroxychloroquine 200 mg tablet 200 mg PO BID Qty: 180 1RF prednisone 10 mg tablet 10 mg PO DAILY Qty: 60 1RF pilocarpine HCl 5 mg tablet 5 mg PO BID Qty: 180 2RF atorvastatin 40 mg tablet 40 mg PO BEDTIME Novolog U-100 Insulin aspart 80 units subcut (via wearable injectr) DAILY Rx Instructions: via insulin pump gabapentin 600 mg tablet 600 mg PO TID calcium citrate 200 mg (950 mg) Tablet 800 mg PO BID Enbrel SureClick 50 mg/mL (1 mL) pen injector 50 mg subcut HERNANDEZ citalopram 20 mg tablet 20 mg PO DAILY PreserVision AREDS [id number] capsule 1 cap PO TID tamsulosin 0.4 mg capsule 0.4 mg PO BEDTIME amlodipine 2.5 mg tablet 2.5 mg PO DAILY cyclobenzaprine 10 mg tablet 10 mg PO DAILY acetaminophen [Tylenol 8 Hour] 650 mg tablet extended release 650 mg PO Q8H PRN (Reason: Pain) cholecalciferol (vitamin D3) 50 mcg (2,000 unit) capsule 50 mcg PO BID Interventions: ED Discharge Assessment Last Done: 12/24/22 20:41 Discharge Date/Time: 12/24/22 20:41
[2022-12-24 16:00] VITALS: BP 122/63; PULSE 56
[2022-12-24 16:04] VITALS: BP 121/59; PULSE 55
[2022-12-24 16:07] VITALS: BP 113/54; PULSE 60
--- NOTE | 2022-12-24 17:36 | PHA.MEDREC ---
Pharmacy Consult ? Medication Reconciliation Pharmacy has completed the medication reconciliation. [facility], [facility]'s home medication list, claim history, and spoke with patient to complete med rec.
== END 2022-12-24 20:41 | disposition home or self-care (01) ==
PROVIDERS: Physician Assistant; Emergency Provider Internal Medicine
DX: R42 Dizziness and giddiness (principal); H53.8 Other visual disturbances; R00.1 Bradycardia, unspecified; Z20.822 Contact with and (suspected) exposure to COVID-19; E11.9 Type 2 diabetes mellitus without complications; I10 Essential (primary) hypertension; E78.5 Hyperlipidemia, unspecified; R06.02 Shortness of breath; Z96.41 Presence of insulin pump (external) (internal); Z79.899 Other long term (current) drug therapy; Z79.4 Long term (current) use of insulin; Z87.891 Personal history of nicotine dependence; Z79.52 Long term (current) use of systemic steroids
CPT/HCPCS: 36415; 70450; 71045; 80048; 80076; 81003; 83735; 84484; 85025; 85610; 87635; 93005; 96360; 99284; 99285

== ENCOUNTER 2023-02-02 09:14 | Outpatient (AMB) | payer MEDICARE, SELFPAY ==
[2023-02-02 10:15] VITALS: BP 146/72; PULSE 85; TEMP 36.3; O2SAT 94; BMI 28.1
--- NOTE | 2023-02-02 10:15 | MHC.OFFVIS ---
Intake Vital Signs 02/02/23 10:15 Height 5 ft 7 in Weight 179 lb 3.773 oz BMI 28.1 BP 146/72 H Blood Pressure Location Rt brachial Position Sitting Pulse 85 Pulse Source Pulse Oximeter Temp 97.4 F Temp Source Skin Pulse Oximetry (%) 94 Intake Visit Reasons: RA Intake Note: Pt seen today for RA follow up. 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 Accompanied by: Self / Same As Patient Allergies Penicillins Allergy (Severe, Verified 11/23/22 09:39) ITCHING-SEVERE piperacillin [From Zosyn] Allergy (Mild, Verified 11/23/22 09:39) JAUNDICE tazobactam [From Zosyn] Allergy (Mild, Verified 11/23/22 09:39) JAUNDICE Medication List - Last Reconciled 02/02/23 by Marisela Neil MD acetaminophen ER (Tylenol 8 Hour) 650 mg PO Q8H PRN amlodipine 2.5 mg PO DAILY atorvastatin 40 mg PO BEDTIME calcium citrate 800 mg PO BID cholecalciferol (vitamin D3) 50 mcg PO BID citalopram 20 mg PO DAILY cyclobenzaprine 10 mg PO DAILY etanercept (Enbrel SureClick) 50 mg subcut HERNANDEZ folic acid 1 mg PO DAILY gabapentin 600 mg PO TID hydroxychloroquine 200 mg PO BID [Novolog U-100 Insulin aspart 80 multiple units subcut (via wearable injectr) DAILY] omeprazole 20 mg PO BID 90 days pilocarpine HCl 5 mg PO BID prednisone 10 mg PO DAILY tamsulosin 0.4 mg PO BEDTIME vitamins A,C,S-yyju-kujomk 4,296 mcg-226 mg-90 mg (PreserVision AREDS) 1 cap PO TID HPI HPI Comments History of Present Illness Details 82-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 Patient has been taking Enbrel weekly for the last 3 months. Continues to have pain especially in his bilateral wrists. Denies any knee pain. The bumps on his left forearm are much better but patient still feels them. They are nontender. He was evaluated by a general surgeon and by the time the patient was seen the nodules had improved on steroids. He has been having numbness of his little fingers bilaterally worse on the left. This started 3 months ago. He has been getting fatigue and shortness of breath with little activity recently. He was told that might need heart valve replacement in the near future. Initial history: This is an 82-year-old male referred from the [place] with complex past medical history including diabetes mellitus on insulin pump, dyslipidemia, CAD, PMR, rheumatoid arthritis who presents for evaluation of rheumatoid arthritis. His previous intervention nurse left the practice. Patient stated he was diagnosed with PMR more than [address] Nichole, he stated that he was started on prednisone 20 mg which would be tapered down to 10 mg and as soon as he is on lower than 10 mg he starts flaring with diffuse joint pain. He then followed with Dr. alfaro and most recently with Gisselle Taylor. Patient has had numerous surgeries due to his rheumatoid arthritis, he states that his carpal bones are fused bilaterally, he also had right wrist surgery, he has SLAP repair surgery for his left shoulder and rotator cuff repair for his right shoulder. He also had a bursectomy for his left elbow. He was started on hydroxychloroquine a few months ago by Gisselle Taylor and he is not sure if it is helping. He also has history of osteoporosis complicated by multiple vertebral fractures in 2021 which were quite painful. He was started on Fosamax once weekly by Gisselle Taylor. About a month ago he had a flare up of diffuse joint pain that was attributed to Fosamax. Since then Fosamax had been stopped. Prednisone was increased back to 15 mg by his PCP. He states that he had a flare-up affecting his wrists, elbows, shoulders and left knee. His pain has improved but he continues to have left knee pain for the last 2-3 weeks. Continues to have chronic low back pain nonradiating. 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 [facility] Medical History Aortic stenosis CAD (coronary artery disease) Carpal tunnel syndrome Diabetes Elevated cholesterol Former smoker HTN (hypertension) Insulin pump in place Surgical History H/O colonoscopy History of cholecystectomy History of hand surgery History of shoulder surgery Hx of cardiac catheterization Hx of hemorrhoidectomy Hx of lumbar discectomy Family History Father Heart attack Heart disease Mother Pacemaker Cataracts, bilateral Sister Heart problem Heart valve replaced Arthritis Brother Heart attack Brother Rectal cancer Sister History of modified radical mastectomy of right breast Social History Household Members: None Are you a primary multi care technician to a significant other at home: No Do you presently have visiting nurse or other home services: No Alcohol intake: never Patient Tobacco Use Status: Former Tobacco user Quit Date: 1961 Tobacco use type: Cigarette Years Smoked: 5 YEARS Current occupational status: employed Current occupation: [employer] Reports arthralgias, Reports joint swelling, Reports numbness and Reports stiffness Neuro Reports no additional complaints and Reports numbness Physical Exam Vital Signs: Last Vital Signs Temp 97.4 F 02/02/23 10:15 Pulse 85 02/02/23 10:15 BP 146/72 H 02/02/23 10:15 Pulse Ox 94 02/02/23 10:15 BMI result Body Mass Index 28.1 Const General: cooperative, healthy appearing, comfortable and no acute distress Nutritional Appearance: overweight Orientation/consciousness: patient oriented x3 Limitations: no limitations HEENT Head: Yes normocephalic and Yes atraumatic Resp Effort & Inspection: normal respiratory effort and able to speak in complete sentences Cardio Heart sounds: Murmur heart sound present systolic at the left sternal border GI Inspection: No distended Palpation (GI): Soft to palpation and nontender Skin Other: Small skin nodules on the left forearm almost resolved, there are no longer erythematous or tender. Multiple bruises with fragile skin on arms, forearms, hands and legs (chronic) Neuro General: patient oriented x3 Extrem Other: left wrist swelling & tenderness to palpation Mild right wrist tenderness radially Normal range of motion of both elbows and shoulder No pain with full flexion and extension of knees Normal range of motion of both shoulders Limited range of motion of both wrists (related to old surgery) No ankle or feet swelling or pain Results Reviewed Results Reviewed: Reviewed labs from 2021 which showed negative RF and negative CCP Assessment & Plan Assessment & Plan (1) Rheumatoid arthritis: Comment: Seronegative initially diagnosed has PMR around 2004 Was only on prednisone until 2021 when HCQ was added with little benefit MTX added 08/2022- -11/08 not particularly effective and patient developed tender skin nodule on LT forearm Enbrel 11/08-02/08 ineffective Code(s): M06.9 - Rheumatoid arthritis, unspecified Qualifiers: Rheumatoid arthritis location: multiple sites Rheumatoid factor presence: without rheumatoid factor Qualified Code(s): M06.09 - Rheumatoid arthritis without rheumatoid factor, multiple sites Plan: This is an 82-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 Patient has been on Enbrel for the last 3 months and does not note any improvement. 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 Discussed risks and benefits of Actemra. Will DC Enbrel and start Actemra 162 mg every other week. Advised patient to start Actemra 1 week after last Enbrel dose Stay on prednisone 10 mg daily for now Continue hydroxychloroquine 200 mg Twice daily Will order bilateral upper extremity EMG to evaluate for cubital tunnel syndrome Repeat labs before next visit in 3 months (2) Multiple skin nodules: Code(s): R22.9 - Localized swelling, mass and lump, unspecified Plan: Multiple tender erythematous skin nodules on his left forearm less than 2 months after starting methotrexate. He had a superficial skin biopsy which showed inflammatory changes but no diagnostic findings. He was evaluated by a general surgeon for a deeper biopsy by that time his nodules had improved. On exam today the nodules are significantly improved. (3) Osteoporosis with pathological fracture of thoracic vertebra: Code(s): M80.08XA - Age-related osteoporosis with current pathological fracture, vertebra(e), initial encounter for fracture Plan: Due to chronic long-term use of steroids. Has always been on at least 10 mg of prednisone for more than 15 years. Per patient recent multiple vertebral fractures in 2021. Recently evaluated by Endocrinology and started on testosterone and Prolia (4) Long-term use of hydroxychloroquine: Code(s): Z79.899 - Other long-term (current) drug therapy Plan: Discussed risk of retinopathy with hydroxychloroquine. Patient follow-up regularly with Ophthalmology Plan I spent 29 minutes reviewing patient's chart, evaluating patient, ordering diagnostic workup, counseling patient and documenting in the chart Orders: Orders NE electromyogram (EMG) Today G56.23 - Lesion of ulnar nerve, bilateral upper limbs Marisela Neil MD Complete Blood Count Auto Diff 3 Months M06.9 - Rheumatoid arthritis, unspecified Marisela Neil MD Comprehensive Met. Panel 3 Months M06.9 - Rheumatoid arthritis, unspecified Marisela Neil MD C Reactive Protein 3 Months M06.9 - Rheumatoid arthritis, unspecified Marisela Neil MD Erythrocyte Sedimentation Rate 3 Months M06.9 - Rheumatoid arthritis, unspecified Marisela Neil MD Medications: New tocilizumab (Actemra ACTPen) 162 mg (0.9 mL) subcut Q2W 1.8 mL 2RF M06.9 - Rheumatoid arthritis, unspecified Marisela Neil MD tocilizumab (Actemra ACTPen) 162 mg (0.9 mL) subcut Q2W 1.8 mL 2RF M06.9 - Rheumatoid arthritis, unspecified Marisela Neil MD Discontinued etanercept (Enbrel SureClick) 50 mg subcut QWEEK 4 mL 2RF M06.9 - Rheumatoid arthritis, unspecified Adai Richard etanercept (Enbrel SureClick) Discontinued Reason: Doctor's Order 50 mg subcut HERNANDEZ 4 mL 2RF Coding Level of Care Code Est Pt Level 4 (45703) Diagnoses Rheumatoid arthritis M06.09 Rheumatoid arthritis location: multiple sites Rheumatoid factor presence: without rheumatoid factor Multiple skin nodules R22.9 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
== END 2023-02-02 10:50 | disposition home or self-care (01) ==
PROVIDERS: Visit Provider Student in an Organized Health Care Education/Training Program
DX: M06.09 Rheumatoid arthritis without rheumatoid factor, multiple sites (principal); R22.9 Localized swelling, mass and lump, unspecified; M80.08XA Age-related osteoporosis with current pathological fracture, vertebra(e), initial encounter for fracture; Z79.899 Other long term (current) drug therapy
CPT/HCPCS: 99214

== ENCOUNTER → 2023-02-02 09:14 | Outpatient (BNVA) | payer MEDICARE, SELFPAY | PROVIDERS: Visit Provider Student in an Organized Health Care Education/Training Program | DX: M06.09 Rheumatoid arthritis without rheumatoid factor, multiple sites (principal); M80.08XD Age-related osteoporosis with current pathological fracture, vertebra(e), subsequent encounter for fracture with routine healing; R22.9 Localized swelling, mass and lump, unspecified; Z79.899 Other long term (current) drug therapy | CPT/HCPCS: 99212 ==

== ENCOUNTER 2023-02-07 09:16 | Inpatient (IN) | payer MEDICARE, SELFPAY ==
[2023-02-07] VITALS (9 sets, daily range): BP systolic 92–175; BP diastolic 58–85; PULSE 67–81; RESP 12–20; TEMP 36.3–36.8; O2SAT 92–100; BMI 28.4; BMI 29.1
--- NOTE | ~2023-02-07 | XR_ITS ---
EXAMINATION: XR HIP, RIGHT CLINICAL INFORMATION: Right hip pain status post fall. COMPARISON: None available. TECHNIQUE: Two views of the right hip. FINDINGS: There is generalized osteopenia. Mild bilateral hip degenerative joint changes are seen. There is no acute fracture or dislocation. Chronic appearing deformity of the right femoral neck is noted. Residual contrast within the urinary bladder. Spinal posterior fusion hardware is intact. XR/XR hip RT w PEL1V IMPRESSION: 1. Chronic appearing asymmetric deformity of the right frontal neck without definitive acute fracture. Correlate with physical exam and patient history. 2. Mild bilateral hip osteoarthritis and generalized osteopenia.
--- NOTE | ~2023-02-07 | CT_ITS ---
EXAMINATION: CT angio head neck CLINICAL INFORMATION: Right lower extremity weakness. COMPARISON: CT scan of the head 02/07/2023. TECHNIQUE: [employer] images were obtained. A CT angiogram of the head and neck was performed in the arterial phase after the intravenous administration of 70 mL Omnipaque 350. Delayed postcontrast images of the head were also obtained. 3D images were processed on an independent workstation under concurrent supervision. Arterial stenoses are measured in accordance with NASCET criteria or similar method if applicable. This CT examination was performed using dose optimization techniques as appropriate, including one or more of the following: Automated exposure control, iterative reconstruction, and adjustment of technique factors (mA and/or kVp) according to patient size (this includes techniques or standardized protocols for targeted exams where dose is matched to indication/reason for exam). Fleischner Society criteria for the followup of incidental pulmonary nodules was implemented if appropriate. Total exam dose-length product 1496 mGy-cm FINDINGS: Head: Postcontrast images reveal no abnormal intracranial mass or enhancement. No intracranial mass effect or midline shift. Lateral and third ventricles are normal. No hydrocephalus. Wang-white matter differentiation is preserved and there is no evidence of acute territorial infarct. The calvarium and skull base are intact. Mastoid air cells and middle ear cavities are well aerated. No active paranasal sinus disease. CT angiogram neck: Scattered atheromatous calcification involves the aortic arch apex. Origins of the major aortic branches are patent. Common carotid arteries are patent. Heavily calcified atheromatous plaque involves both carotid bifurcations. There is 75% stenosis of the left internal carotid artery at its origin. Less than 25% stenosis of the origin of the right internal carotid artery. Moderate to high-grade focal narrowing at the origins of both vertebral arteries which are otherwise patent. CT angiogram head: Intracranial internal carotid arteries are patent. The intradural vertebral artery segments and basilar artery are patent. Anterior, middle, and posterior cerebral artery complexes are normal. No intracranial large vessel occlusion. No identifiable aneurysm or high flow vascular lesion. The timing of the contrast injection provides adequate opacification of the dural venous sinuses which are patent. Other: Soft tissues of the neck including the thyroid gland are normal. Grossly no pathologically enlarged cervical lymph nodes. Lung apices are clear. No acute osseous finding. CT/CT angio head neck IMPRESSION: Heavily calcified atheromatous plaque involves both carotid bifurcations. There is 75% stenosis of the left internal carotid artery at its origin and 25% stenosis of the right internal carotid artery at its origin. Moderate to high-grade focal narrowing at the origins of both vertebral arteries which are otherwise patent. No intracranial large vessel occlusion. No evidence of acute territorial infarct. No abnormal intracranial mass or enhancement.
--- NOTE | ~2023-02-07 | MR_ITS ---
EXAMINATION: MR BRAIN WITHOUT CONTRAST CLINICAL INFORMATION: TIA COMPARISON: Same day CTA head and neck TECHNIQUE: Multiplanar multisequence MR imaging of the brain was obtained without intravenous contrast. FINDINGS: There is no acute infarct on diffusion-weighted imaging. There is no intracranial hemorrhage on iron-sensitive imaging. No extra-axial collection or mass effect/herniation. Scattered periventricular and deep white matter T2 FLAIR hyperintensities consistent with mild underlying microangiopathy. Right basal ganglia, right thalamic and left ventral pontine lacunar infarcts. No hydrocephalus. Mild generalized cerebral volume loss with commensurate sulcal and ventricular prominence. The major flow voids at the skull base are preserved. The midline structures are normal. The cerebellar tonsils are normally positioned. The craniocervical junction is normal. Marrow signal is within normal limits. The visualized soft tissues are without significant abnormality. Mild ethmoid sinus mucosal thickening. Left mastoid effusion. Effusion involving the right temporomandibular joint. MR/MR head/brain wo con IMPRESSION: No acute infarct or other acute intracranial abnormality.
--- NOTE | ~2023-02-07 | XR_ITS ---
EXAMINATION: XR ELBOW, RIGHT CLINICAL INFORMATION: Swelling, pain. COMPARISON: None available. TECHNIQUE: AP, lateral, and oblique views of the right elbow. FINDINGS: No displaced fractures or subluxation. Moderate multi compartmental bony productive changes. No erosions. No joint effusion. Soft tissue thickening adjacent to the olecranon process. XR/XR elbow RT min 3V IMPRESSION: 1. No acute fractures or subluxation. 2. Moderate multi compartmental degenerative osteoarthritis. 3. Soft tissue thickening adjacent to the olecranon process, correlate for olecranon bursitis.
--- NOTE | ~2023-02-07 | NM_ITS ---
Myocardial perfusion study Indication: Preoperative cardiovascular risk stratification Technique: The patient was brought in for a Lexiscan perfusion study on 02/09/2023. Patient performed low-level exercise and was injected 0.4 mg of Lexiscan intravenously. Within a minute of injection, 25 mCi of sestamibi was given intravenously. Images were obtained using the SPECT gamma camera interlaced with the gating device. Images were obtained in supine position. Resting perfusion study was performed on 02/08/2023. Patient was administered 25 mCi of sestamibi intravenously at rest. Images were then obtained in supine position. Images obtained with and without CT attenuation. Total DLP 90 mGy-cm. Images were processed with the software and compared side to side in short axis, horizontal long axis and vertical long axis views. Findings: The stress perfusion study showed non attenuated images show mild thinning of the basal inferolateral and lateral wall of the LV myocardium. Remainder of the LV myocardium is normally perfused. Attenuation corrected images show normal uptake of radiotracer in all segments of LV myocardium.. The gated study shows normal LV systolic function with calculated LVEF of 70%. LV cavity is normal in size. The gated study shows normal systolic wall thickening and contraction of segments. Resting study shows no change in perfusion pattern compared to stress perfusion study. Gating at rest reveals normal systolic wall motion with ejection fraction at 58%. The findings are consistent with likely normal myocardial perfusion. NM/NM danilo perf SPECT rest & str Impression: 1. Myocardial perfusion imaging study shows likely normal myocardial perfusion 2. Gated LVEF is 70% 3. Transient ischemic dilatation not present EKG is nondiagnostic for ischemia
--- NOTE | ~2023-02-07 | CT_ITS ---
EXAMINATION: CT HEAD WITHOUT CONTRAST CLINICAL INFORMATION: Weakness. COMPARISON: Head CT scan dated 12/24/2022. TECHNIQUE: Contiguous axial imaging was performed from the skull base to vertex without intravenous administration of contrast. Coronal and sagittal reformatted images were obtained. This CT examination was performed using dose optimization techniques as appropriate, variously including the following: *Automated exposure control *Adjustment of mA and/or kV according to patient size (this includes techniques or standardized protocols for targeted exams where dose is matched to indication/reason for exam; i.e. extremities or head) *Use of iterative reconstruction technique DLP: 684 mGy-cm FINDINGS: There is mild widening of the cortical sulci and associated ventriculomegaly. The lateral ventricles are symmetrical. The third and fourth ventricles are in their normal midline position. The basilar and prepontine cisterns are unremarkable. There is no acute intra or extracerebral abnormality. There is no mass effect or midline shift. Sections through the bony calvarium are unremarkable. The orbits are intact. The paranasal sinuses show mild mucosal thickening in the bilateral ethmoid and sphenoid sinuses small retention cyst versus inflammatory polyp along the anterior margin of the right maxillary sinus. The mastoid air cells are clear. CT/CT head/brain wo IV con IMPRESSION: No acute intracranial pathology.
--- NOTE | 2023-02-07 09:18 | ED_ITS ---
HPI - Weakness General Chief complaint: Weakness Stated complaint: DIZZY,WEAK THIS AM PER EMS Time Seen by Provider: 02/07/23 09:17 Source: patient and EMS Mode of arrival: EMS Limitations: no limitations History of Present Illness HPI Narrative: patient states that he got up because of his restless leg syndrome, he felt like he had to hold the wall because of weakness. This morning he slipped out of bed and scraped his arm and bumped his head on the wood bed. No LOC. His sons show up and they called the ambulance MD Complaint: generalized weakness Onset (ago): hour(s) Related Data Home Medications Medication Instructions Recorded Confirmed Novolog U-100 Insulin aspart 80 units subcut (via wearable 06/01/20 02/07/23 injectr) DAILY atorvastatin 40 mg tablet 40 mg PO BEDTIME 06/01/20 02/07/23 tamsulosin 0.4 mg capsule 0.4 mg PO BEDTIME 06/24/22 02/07/23 vitamins A,C,D-xuai-vuicbo 4,296 1 cap PO BID 06/24/22 02/07/23 mcg-226 mg-90 mg capsule (PreserVision AREDS) acetaminophen 650 mg 650 mg PO Q8H PRN Pain 09/06/22 02/07/23 tablet,extended release (Tylenol 8 Hour) amlodipine 2.5 mg tablet 2.5 mg PO DAILY 09/06/22 02/07/23 citalopram 20 mg tablet 20 mg PO DAILY 09/06/22 02/07/23 cyclobenzaprine 10 mg tablet 10 mg PO DAILY 09/06/22 02/07/23 gabapentin 600 mg tablet 600 mg PO TID 09/06/22 02/07/23 cholecalciferol (vitamin D3) 50 50 mcg PO BID 11/21/22 02/07/23 mcg (2,000 unit) capsule calcium citrate 200 mg (950 mg) 800 mg PO BID 12/24/22 02/07/23 tablet etanercept 50 mg/mL (1 mL) 50 mg subcut HERNANDEZ@0900 02/07/23 02/07/23 subcutaneous syringe (Enbrel) Previous Rx's Medication Instructions Recorded omeprazole 20 mg capsule,delayed 20 mg PO BID 90 days #180 caps 10/13/21 release hydroxychloroquine 200 mg tablet 200 mg PO BID #180 tabs 08/17/22 prednisone 10 mg tablet 10 mg PO DAILY #60 tabs 12/07/22 pilocarpine HCl 5 mg tablet 5 mg PO BID #180 tabs 12/14/22 Allergies Allergy/AdvReac Type Severity Reaction Status Date / Time Penicillins Allergy Severe ITCHING-SEV Verified 02/07/23 09:30 ERE piperacillin [From Zosyn] Allergy Mild JAUNDICE Verified 02/07/23 09:30 tazobactam [From Zosyn] Allergy Mild JAUNDICE Verified 02/07/23 09:30 Review of Systems Neurologic: Denies Sensory deficit (Neuro) [facility] Past Medical History Medical History Aortic stenosis CAD (coronary artery disease) Carpal tunnel syndrome Diabetes Elevated cholesterol Former smoker HTN (hypertension) Insulin pump in place Rheumatoid arthritis Surgical History H/O colonoscopy History of cholecystectomy History of hand surgery History of shoulder surgery Hx of cardiac catheterization Hx of hemorrhoidectomy Hx of lumbar discectomy Family History Family History Father Heart attack Heart disease Mother Pacemaker Cataracts, bilateral Sister Heart problem Heart valve replaced Arthritis Brother Heart attack Brother Rectal cancer Sister History of modified radical mastectomy of right breast Social History Social History Household Members: None Are you a primary care management specialist to a significant other at home: No Do you presently have visiting nurse or other home services: No Alcohol intake: former Patient Tobacco Use Status: Former Tobacco user Quit Date: 1961 Tobacco use type: Cigarette Years Smoked: 5 YEARS Smoked in Last 30 Days: No Use of substances other than those prescribed or required for medical reasons: No Advance Directives: Yes Advance Directives Information Provided: Yes Advance Directives on File: No Nutrition Risks: No Nutritional Risk Current occupational status: employed Current occupation: [employer] Physical Exam Vital Signs: Vital Signs: Last Vital Signs Temp 97.6 F 02/07/23 12:00 Pulse 77 02/07/23 14:56 Resp 12 02/07/23 14:56 BP 175/85 H 02/07/23 14:56 Pulse Ox 92 02/07/23 14:56 O2 Del Method Room Air 02/07/23 14:56 BMI result Body Mass Index 28.4 Const: General: healthy appearing Nutritional Appearance: average body habitus Orientation/consciousness: oriented to person and patient oriented x3 Limitations: no limitations HEENT: Head: Yes normal to inspection Ears: external ears normal General nose exam: Normal external nose present Mouth: Normal oral and palatal mucosa present and oropharynx normal Throat: Yes posterior oropharynx normal Eyes: General: appearance normal, both eyes and all related structures Neck: Other: supple Neck: Yes normal visual inspection Chest: Chest palpation & inspection: normal inspection of the chest Resp: Auscultation: clear to auscultation bilaterally Cardio: Other: 4/6 BRISA Jugular venous distension: no JVD Rate: regular rate Rhythm: regular rhythm GI: Inspection: Yes normal to inspection Palpation (GI): Soft to palpation, nontender and No hepatosplenomegaly present Auscultation: normal bowel sounds : General: Yes no CVA tenderness Back/Spine/Pelvis: Back: no CVA tenderness Skin: Other: right arm with skin abrasion. Neuro: General: oriented to person and patient oriented x3 Cranial nerves: Yes CN's II-XII intact bilaterally Motor exam (neuro): 5/5 motor strength present throughout Sensory Exam: No Sensory deficit (Neuro) Extrem: General: Yes normal to inspection Psych: Appearance: grossly normal Course Reevaluation(s) Reevaluation #1: patient about 2 hours after his stay changed his story and told me that his right leg became jello which led me to CTA his head and neck. Severe stenosis in the left carotid will admit for TIA and possible endarterctomy Time: 13:55 Reevaluation #2: I spent 40 minutes of critical care, with interventions, assessments, speaking to patient, consultants, and family. Time: 13:55 Medications Administered Discontinued Medications Generic Name Dose Route Start Last Admin Trade Name Freq PRN Reason Stop Dose Admin Aspirin 325 mg 02/07/23 14:39 02/07/23 14:53 Aspirin 325 Mg Tablet PO 02/07/23 14:40 325 mg ONCE ONE Administration Iohexol 100 ml 02/07/23 11:51 02/07/23 11:51 Iohexol 350 Mg/Ml 100 Ml Infus..Btl IV 02/07/23 11:52 70 ml ONCE ONE Administration Medical Decision Making Differential Diagnosis Differential Diagnoses: The differential diagnosis associated with the presentation includes (anemia, UTI, cardiac ischemia, stroke, TIA) Admission/Observation Consideration of admission/observation: Escalation of care including admission/observation considered (upon arrival patient was considered for admission) Consult Healthcare Provider Management of the patient was discussed with: Learning And Development Consultant (stroke quality compliance consultant) Lab Data MDM Lab Attestation statement: I reviewed the patient's lab results. (Platelets borderline low, Troponin slightly elevated) 02/07/23 09:37 02/07/23 09:37 Labs: Lab Results 02/07/23 02/07/23 02/07/23 Range/Units 09:37 09:37 09:37 WBC 8.4 (4.8-10.8) X10*3/uL RBC 4.75 (4.60-5.80) X10*6/uL Hgb 13.4 L (14.0-18.0) g/dl Hct 42.1 (42.0-52.0) % MCV 88.6 (80.0-98.0) fL MCH 28.2 (27.0-33.0) pg MCHC 31.8 (31.0-36.0) g/dl RDW 15.5 (11.0-16.0) % Plt Count 156 L (160-400) X10*3/uL MPV 8.8 L (9.4-12.4) fL Immature Gran % (Auto) 0.4 (0.0-0.4) % Neut % (Auto) 45.6 (45-73) % Lymph % (Auto) 38.4 (20-40) % Yates % (Auto) 13.3 H (2-11) % Eos % (Auto) 1.7 (0-4) % Baso % (Auto) 0.6 (0-2) % Lymph # (Auto) 3.2 (1.2-4.9) X10*3/uL Yates # (Auto) 1.1 (0.1-1.2) X10*3/uL Eos # (Auto) 0.1 (0.0-0.4) X10*3/uL Baso # (Auto) 0.1 (0.0-0.2) X10*3/uL Abs Immat Gran (auto) 0.03 (0.00-0.03) X10*3/uL Absolute Neuts (auto) 3.8 (2.0-8.3) x10*3/uL Absolute Nucleated RBC 0.000 (0.0-0.012) X10*3/uL Nucleated RBC % (auto) 0.0 (0.0-0.2) /100WBC Sodium 144 (135-145) mmol/L Potassium 3.9 (3.3-5.1) mmol/L Chloride 109 H (96-108) mmol/L Carbon Dioxide 26 (22-29) mmol/L Anion Gap 13 (12-20) BUN 27 H (9-16) mg/dL Creatinine 1.17 (0.5-1.4) mg/dL Estim Creat Clear Calc 45.1 Estimated GFR 59 Random Glucose 91 (60-115) mg/dL Calcium 9.4 (8.4-10.2) mg/dL Troponin I High Sens 30.9 D (<3.5-35.0) ng/L Triglycerides 81 (<150) mg/dL Cholesterol 118 (<200) mg/dL LDL Cholesterol, Calc 54 (<100) mg/dL HDL Cholesterol 48 (>40) mg/dL Urine Color Urine Appearance Urine pH (5.0-9.0) Ur Specific Paterson (1.005-1.025) Urine Protein (Neg-Trace) mg/dL Urine Glucose (UA) (Negative) mg/dL Urine Ketones (Negative) mg/dL Urine Blood (Negative) Urine Nitrite (Negative) Ur Leukocyte Esterase (Negative) 02/07/23 Range/Units 10:14 WBC (4.8-10.8) X10*3/uL RBC (4.60-5.80) X10*6/uL Hgb (14.0-18.0) g/dl Hct (42.0-52.0) % MCV (80.0-98.0) fL MCH (27.0-33.0) pg MCHC (31.0-36.0) g/dl RDW (11.0-16.0) % Plt Count (160-400) X10*3/uL MPV (9.4-12.4) fL Immature Gran % (Auto) (0.0-0.4) % Neut % (Auto) (45-73) % Lymph % (Auto) (20-40) % Yates % (Auto) (2-11) % Eos % (Auto) (0-4) % Baso % (Auto) (0-2) % Lymph # (Auto) (1.2-4.9) X10*3/uL Yates # (Auto) (0.1-1.2) X10*3/uL Eos # (Auto) (0.0-0.4) X10*3/uL Baso # (Auto) (0.0-0.2) X10*3/uL Abs Immat Gran (auto) (0.00-0.03) X10*3/uL Absolute Neuts (auto) (2.0-8.3) x10*3/uL Absolute Nucleated RBC (0.0-0.012) X10*3/uL Nucleated RBC % (auto) (0.0-0.2) /100WBC Sodium (135-145) mmol/L Potassium (3.3-5.1) mmol/L Chloride (96-108) mmol/L Carbon Dioxide (22-29) mmol/L Anion Gap (12-20) BUN (9-16) mg/dL Creatinine (0.5-1.4) mg/dL Estim Creat Clear Calc Estimated GFR Random Glucose (60-115) mg/dL Calcium (8.4-10.2) mg/dL Troponin I High Sens (<3.5-35.0) ng/L Triglycerides (<150) mg/dL Cholesterol (<200) mg/dL LDL Cholesterol, Calc (<100) mg/dL HDL Cholesterol (>40) mg/dL Urine Color Yellow Urine Appearance Clear Urine pH 5.5 (5.0-9.0) Ur Specific Paterson >= 1.030 H (1.005-1.025) Urine Protein Trace (Neg-Trace) mg/dL Urine Glucose (UA) Negative (Negative) mg/dL Urine Ketones Trace (Negative) mg/dL Urine Blood Negative (Negative) Urine Nitrite Negative (Negative) Ur Leukocyte Esterase Negative (Negative) Independent Interpretation I performed an independent interpretation of an: EKG (sinus [address] or twave changes) and CT Scan (no bleed or mass) Radiology Impression Discussion of test interpretation with radiology: I have reviewed the radiologist's reading. (CTA with significant stenosis) Independent Historian Clinical information obtained from an independent historian. History obtained from or confirmed by: EMS and Other (grandson) Tests considered The following testing was considered but not selected: MRI of brain considered Chronic Conditions Patient?s care impacted by: Hypertension Discharge Plan Discharge Clinical Impression: Transient ischemic attack (TIA), Carotid artery stenosis Patient Disposition: Admitted As Inpatient
--- NOTE | 2023-02-07 09:23 | ECG_ITS ---
Test Reason : Weakness Blood Pressure : / mmHG Vent. Rate : 066 BPM Atrial Rate : 066 BPM P-R Int : 170 ms QRS Dur : 124 ms QT Int : 470 ms P-R-T Axes : 020 -39 001 degrees QTc Int : 492 ms Normal sinus rhythm Left axis deviation Left ventricular hypertrophy with QRS widening ( R in aVL , [employer] product ) Nonspecific ST abnormality Abnormal ECG When compared with ECG of 24-DEC-2022 14:30, QRS duration has increased T wave inversion less evident in Inferior leads T wave inversion no longer evident in Lateral leads Referred By: Martin Kline Electronically Signed By:VALENCIA CHRISTINE
[2023-02-07 09:42] LABS: MANUAL DIFF FLAG NO
[2023-02-07 09:49] LABS: Basophils Absolute Auto 0.1 X10*3/uL (0.0-0.2); Basophils Percent Auto 0.6 % (0-2); Eosinophils Absolute Auto 0.1 X10*3/uL (0.0-0.4); Eosinophils Percent Auto 1.7 % (0-4); Hematocrit 42.1 % (42.0-52.0); Hemoglobin 13.4 g/dl (14.0-18.0); Imm Gran Abs Auto 0.03 X10*3/uL (0.00-0.03); Imm Gran Pct Auto 0.4 % (0.0-0.4); Lymphocytes Absolute Auto 3.2 X10*3/uL (1.2-4.9); Lymphocytes Percent Auto 38.4 % (20-40); Mean Corpuscular HGB Conc 31.8 g/dl (31.0-36.0); Mean Corpuscular Hemoglobin 28.2 pg (27.0-33.0); Mean Corpuscular Volume 88.6 fL (80.0-98.0); Mean Platelet Volume 8.8 fL (9.4-12.4); Monocytes Absolute Auto 1.1 X10*3/uL (0.1-1.2); Monocytes Percent Auto 13.3 % (2-11); Neutrophils Absolute Auto 3.8 x10*3/uL (2.0-8.3); Neutrophils Percent Auto 45.6 % (45-73); Platelet Count 156 X10*3/uL (160-400); Red Blood Count 4.75 X10*6/uL (4.60-5.80); Red Cell Distribution Width 15.5 % (11.0-16.0); White Blood Count 8.4 X10*3/uL (4.8-10.8)
--- NOTE | 2023-02-07 09:53 | PC.NURSE ---
t arrived by ambulance, reporting weakness starting overnight last night, pt had to use muñiz for support to get himself to the bathroom, and was unable to get himself back up into bed, and had an abrasion noted on Right elbow. He is a/ox4. Answering all questions appropriately. IV placed, labs received, EKG completed, pt currently in radiology. Okay'd per MD to have something to eat and take morning medications that he brought with him. Insulin pump in place at this time.
[2023-02-07 10:01] LABS: Anion Gap 13 (12-20); Blood Urea Nitrogen 27 mg/dL (9-16); Calcium 9.4 mg/dL (8.4-10.2); Carbon Dioxide 26 mmol/L (22-29); Chloride 109 mmol/L (96-108); Creatinine Clr Calc Pharmacy 45.1; Estimated Glomerular Filt Rate 59; Glucose Random 91 mg/dL (60-115); Potassium 3.9 mmol/L (3.3-5.1); Sodium 144 mmol/L (135-145)
[2023-02-07 10:11] LABS: Troponin-I High Sensitivity 30.9 ng/L (<3.5-35.0)
[2023-02-07 10:25] LABS: Appearance Urine Clear; Color Urine Yellow; Glucose Urine UA Negative (Negative); Leukocyte Esterase Urine Negative (Negative); Nitrite Urine Negative (Negative); PH 5.5 (5.0-9.0); Specific Gravity - Urine >= 1.030 (1.005-1.025); Urine Blood Negative (Negative); Urine Ketones Trace mg/dL (Negative); Urine Protein Trace mg/dL (Neg-Trace)
[2023-02-07] MEDS: iohexoL 350 MG/ML 100 ML INFUS..BTL IV (11:51)
--- NOTE | 2023-02-07 14:27 | MHC.STROKE ---
Addendum entered by Yolanda Lopez RN 02/08/23 13:12: I MET WITH THE PATIENT AND HIS SON, WE REVIEWED HIS MRI RESULTS AND PLAN OF CARE. THE PLAN IS FOR A CAROTID ENDARTERECTOMY, DATE NOT SET, OBTAINING CARDIOLOGY CLEARANCE. I PROVIDE SOME EDUCATION INFORMATION ON THIS. WE AMBULATED TO THE BATHROOM WITH THE WALKER, VOIDING LARGE AMOUNTS, SLIGHT ATAXIC GAIT. I ANSWERED THE QUESTIONS THEY HAD. I WILL CONTINUE TO FOLLOW. 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 Original Note: 02/07/23 0904 EMS PRE-NOTIFIED, NO STROKE ALERT. ARRIVED AT [facility] 0916 WITH C/O RIGHT SIDED WEAKNESS AND DIZZINESS. CT AND CTA H/N DONE. SPOKE WITH DR FANG. TIA WITH LEFT 75% CAROTID STENOSIS, HE WILL ADMIT THE PATIENT AND REQUEST A NEUROLOGY AND VASCULAR CONSULT. I SAW THE PATIENT AND WALKED HIM TO THE BATHROOM WITH MINIMAL ASSIST. GAIT SLIGHTLY ATAXIC. NIHSS = 1, SPEAKING CLEARLY, HE IS NOT C/O ANY DIZZINESS, HE PASSED NURSING SWALLOW SCREEN. I EXPLAINED THE PLAN OF CARE AND INITIATED STROKE EDUCATION. I WILL CONTINUE TO FOLLOW.
--- NOTE | 2023-02-07 14:43 | PM.IMHP ---
History of Present Illness Date of Service: 02/07/23 Attending physician on admission: Evelyn Ho Chief Complaint: rle weakness 82-year-old male with history of hypertension, insulin-dependent type 2 diabetes, hyperlipidemia, carpal tunnel syndrome, coronary artery disease, aortic stenosis, rheumatoid arthritis, history lumbar fusion, and restless legs syndrome who is a former smoker quit greater than 40 years ago presented to the ED via EMS for evaluation of right lower extremity weakness. He went to bed around 23:00 without any symptoms and woke up around 01:00 to use the bathroom and felt like his right lower extremity was rubbery and he was needing to use the wall for support to ambulate. He then awoke again at 07:00 with significant weakness in the right lower extremity and fell to the right side upon standing sustaining a skin tear to the right forearm but did not hit his head or lose any consciousness. He denies having any facial droop, slurred speech, dysphagia, visual changes, lightheadedness, upper extremity weakness or paresthesias, weakness in the left lower extremity or paresthesias in the lower extremities. Denies prior history TIA/CVA. He is also reporting right hip pain. On arrival, patient moderately hypertensive to 150/59, vitals otherwise within normal limits. Hematology studies are unremarkable. Renal function normal, electrolyte levels normal. Troponin 30.9, repeat pending. Urinalysis unremarkable. Head CT negative for any acute intracranial pathology CTA of the head/neck showing heavy calcified atheromatous plaque involving both carotid bifurcations. There is 75% stenosis of the left internal carotid artery at its origin 25% stenosis of the right internal carotid artery at its origin as well as mild to moderate high-grade focal narrowing at the origins of both vertebral arteries which are otherwise patent. No LVO. EKG showed normal sinus rhythm, rate 66 [address] and nonspecific ST abnormality. Review of Systems Review of Systems: General: No fevers, malaise, unintentional weight loss HEENT: No blurred vision, diplopia Cardiovascular: No chest pain, palpitations, or leg edema Respiratory: No shortness of breath, wheezing, cough GI: No abdominal pain, nausea, vomiting, diarrhea, constipation, melena, hematochezia : No dysuria, hematuria, increased urinary frequency, decreased urinary output MSK: No myalgia, back pain. +R hip pain Neuro: No headaches, paresthesias. +RLE weakness Skin: No rashes or lesions [facility] Medical History (Updated 02/08/23 @ 11:12 by Alfie Dias MD) Aortic stenosis CAD (coronary artery disease) Carpal tunnel syndrome Diabetes Elevated cholesterol Former smoker HTN (hypertension) Insulin pump in place Rheumatoid arthritis Family History Father Heart attack Heart disease Mother Pacemaker Cataracts, bilateral Sister Heart problem Heart valve replaced Arthritis Brother Heart attack Brother Rectal cancer Sister History of modified radical mastectomy of right breast Surgical History H/O colonoscopy History of cholecystectomy History of hand surgery History of shoulder surgery Hx of cardiac catheterization Hx of hemorrhoidectomy Hx of lumbar discectomy Social History Household Members: None Housing: House Are you a primary rn transitional care to a significant other at home: No Do you presently have visiting nurse or other home services: No Alcohol intake: former Patient Tobacco Use Status: Former Tobacco user Quit Date: 1961 Tobacco use type: Cigarette Years Smoked: 5 YEARS Smoked in Last 30 Days: No Use of substances other than those prescribed or required for medical reasons: No Currently Displaying Signs/Symptoms of Drug Intoxication Withdrawal: No Have you been hit, kicked, punched, or otherwise hurt by someone within the past year? If so, by whom?: No Do you feel safe in your current relationship?: No Current Relationship Is there a partner from a previous relationship who is making you feel unsafe now?: No [facility] Practices: [employer] Advance Directives: Yes Advance Directives Information Provided: Yes Advance Directives on File: No Advance Directives Date on File: 02/07/23 Do you have thoughts of harming others: None Do you have a plan to hurt others: No Plan Recently lost weight without trying: Yes How much weight loss: 2-13 pounds Nutrition Risks: No Nutritional Risk service: Yes Current occupational status: employed Current occupation: [employer] Meds Allergies Allergy/AdvReac Type Severity Reaction Status Date / Time Penicillins Allergy Severe ITCHING-SEV Verified 02/07/23 09:30 ERE piperacillin [From Zosyn] Allergy Mild JAUNDICE Verified 02/07/23 09:30 tazobactam [From Zosyn] Allergy Mild JAUNDICE Verified 02/07/23 09:30 Home Medications Medication Instructions Recorded Confirmed Last Taken Type Novolog U-100 Insulin aspart 80 units subcut (via wearable 06/01/20 02/07/23 02/07/23 09:00 History injectr) DAILY atorvastatin 40 mg tablet 40 mg PO BEDTIME 06/01/20 02/07/23 02/06/23 History tamsulosin 0.4 mg capsule 0.4 mg PO BEDTIME 06/24/22 02/07/23 02/06/23 History vitamins A,C,R-dzup-ehslpu 4,296 1 cap PO BID 06/24/22 02/07/23 02/07/23 09:00 History mcg-226 mg-90 mg capsule (PreserVision AREDS) acetaminophen 650 mg 650 mg PO Q8H PRN Pain 09/06/22 02/07/23 Unknown History tablet,extended release (Tylenol 8 Hour) amlodipine 2.5 mg tablet 2.5 mg PO DAILY 09/06/22 02/07/23 02/07/23 09:00 History citalopram 20 mg tablet 20 mg PO DAILY 09/06/22 02/07/23 02/07/23 09:00 History cyclobenzaprine 10 mg tablet 10 mg PO DAILY 09/06/22 02/07/23 02/07/23 09:00 History gabapentin 600 mg tablet 600 mg PO TID 09/06/22 02/07/23 02/07/23 09:00 History cholecalciferol (vitamin D3) 50 50 mcg PO BID 11/21/22 02/07/23 02/07/23 09:00 History mcg (2,000 unit) capsule calcium citrate 200 mg (950 mg) 800 mg PO BID 12/24/22 02/07/23 02/07/23 09:00 History tablet etanercept 50 mg/mL (1 mL) 50 mg subcut HERNANDEZ@0900 02/07/23 02/07/23 02/05/23 History subcutaneous syringe (Enbrel) Physical Exam Vital Signs and Narrative: Vital Signs: Last Vital Signs Temp 97.6 F 02/07/23 12:00 Pulse 68 02/07/23 12:00 Resp 15 02/07/23 12:00 BP 150/59 H 08/22/23 12:00 Pulse Ox 94 02/07/23 12:00 O2 Del Method Room Air 02/07/23 12:00 BMI result Body Mass Index 28.4 Constitutional - Awake and Alert, No apparent distress Eyes - PERRLA, EOMI Cardiovascular - S1S2, RRR, No edema Respiratory - Normal lung expansion, Normal respiratory effort, No respiratory distress, CTA bilaterally Gastrointestinal - NT / ND; +BS; No rebound or guarding Extremities - no calf tenderness bilaterally, no swelling Skin - Warm/Dry Neurological - Alert & oriented x3, CN II-XII in tact, 5/5 strength BUE and BLE, 1+ patellar reflex RLE, absent patellar reflex on left. no pronator drift, finger to nose coordination in tact Psychological - Appropriate affect Results Labs 02/07/23 09:37 02/07/23 09:37 Labs: Laboratory Results - last 24 hr 02/07/23 02/07/23 02/07/23 09:37 09:37 10:14 MCV 88.6 MCH 28.2 MCHC 31.8 RDW 15.5 Plt Count 156 L MPV 8.8 L Immature Gran % (Auto) 0.4 Neut % (Auto) 45.6 Lymph % (Auto) 38.4 [place] % (Auto) 13.3 H Eos % (Auto) 1.7 Baso % (Auto) 0.6 Lymph # (Auto) 3.2 [place] # (Auto) 1.1 Eos # (Auto) 0.1 Baso # (Auto) 0.1 Abs Immat Gran (auto) 0.03 Absolute Neuts (auto) 3.8 Absolute Nucleated RBC 0.000 Nucleated RBC % (auto) 0.0 Anion Gap 13 Estim Creat Clear Calc 45.1 Estimated GFR 59 Random Glucose 91 Calcium 9.4 Urine Color Yellow Urine Appearance Clear Urine pH 5.5 Ur Specific [place] >= 1.030 H Urine Protein Trace Urine Glucose (UA) Negative Urine Ketones Trace Urine Blood Negative Urine Nitrite Negative Ur Leukocyte Esterase Negative Imaging Radiologist's Impressions: Impressions Head CT 02/07/23 10:00 IMPRESSION: No acute intracranial pathology. Head/Neck CTA 02/07/23 12:07 IMPRESSION: Heavily calcified atheromatous plaque involves both carotid bifurcations. There is 75% stenosis of the left internal carotid artery at its origin and 25% stenosis of the right internal carotid artery at its origin. Moderate to high-grade focal narrowing at the origins of both vertebral arteries which are otherwise patent. No intracranial large vessel occlusion. No evidence of acute territorial infarct. No abnormal intracranial mass or enhancement. Assessment and Plan (1) Transient ischemic attack (TIA): Status: Acute (2) Carotid artery stenosis: Status: Acute Plan 82-year-old male with history of hypertension, insulin-dependent type 2 diabetes, hyperlipidemia, carpal tunnel syndrome, coronary artery disease, aortic stenosis, rheumatoid arthritis, history lumbar fusion, and restless legs syndrome who is a former smoker quit greater than 40 years ago admitted for acute TIA vs CVA with significant carotid stenosis. #TIA -RLE resolved. Not a tpa candidate -Head CT negative for acute intracranial abnormality. CTA head/neck showing significant left-sided carotid stenosis with narrowing at the base -ASA 325 mg once given. Continue ASA 81 mg daily -optimize atorvastatin to 80 mg. Check lipid profile -passed bedside nursing swallow eval -stroke education performed -MRI brain ordered -neurology consult -echocardiogram -monitor on telemetry -PT/OT consult # carotid artery stenosis -75% on left, 50% on right -CTA head/neck as above -initiate aspirin. Hold on Plavix for now per vascular surgery -vascular surgery consult # insulin-dependent type 2 diabetes -point of care glucose -diabetic diet -patient to use own insulin pump # rheumatoid arthritis -genu home meds # hypertension -hold antihypertensives in the setting of TIA DVT prophylaxis- heparin Full code Patient requires inpatient stay at least 2 midnights for management of acute TIA with significant carotid stenosis possibly requiring intervention as well as expert consultation Time Spent With Patient Time: Total time managing care of this patient today ____ minutes. Quality Stroke Does the patient have a stroke diagnosis?: Yes Reason for No Anti-thrombotic by Day Two: Drug treatment not indicated VTE Prior VTE?: No VTE Risk Level:: Medical - moderate - high VTE Device Contraindication: Treatment Not Indicated VTE Drug Contraindication: N/A - Med Ordered
--- NOTE | 2023-02-07 14:51 | PHA.MEDREC ---
Pharmacy Consult ? Medication Reconciliation Pharmacy has completed the medication reconciliation. Spoke to patient to confirm meds. Patient had own med list and takes Enbrel 50mg every Monday.
[2023-02-07] MEDS: Aspirin 325 MG TABLET PO (14:53)
--- NOTE | 2023-02-07 15:00 | CA_ITS ---
Transthoracic Echocardiogram Patient (Last, First, Middle): Jose M Brock R Gender: Male Date of : 1940 Age: 82 Procedure Date: 02/07/2023 Procedure Type: Transthoracic Echocardiogram Location: ER Height: 165.1 cm Weight: 77.11 kg BSA: 1.85 m2 Heart Rate: bpm BP: 175 / 85 mmHg Neurosurgical Nurse Practitioner: YOLANDA Referring MD: Lennie BELTRAN Symptoms: tia Study Quality: Adequate with contrast ECG Rhythm: Sinus Conclusions: - The left ventricular systolic function is normal. The calculated ejection fraction is 64% by biplane method. - There is moderate aortic valve stenosis. - There is moderate mitral annular calcification. Possible moderate mitral stenosis. Findings Procedure Information Contrast agent, definity, is being given per protocol without apparent complications. Left Ventricle Normal left ventricular cavity size. There is mildly increased left ventricular wall thickness. The left ventricular systolic function is normal. The calculated ejection fraction is 64% by biplane method. There is no evidence of regional wall motion abnormalities. Evidence suggests grade I (mild) diastolic dysfunction. Right Ventricle Normal right ventricular cavity size and systolic function. Atria The left atrium is mildly dilated. The right atrium is normal in size. Aortic Valve There is severe calcification of the aortic valve. There is moderate aortic valve stenosis. The peak aortic gradient is 45 mmHg.The mean gradient is 27 mmHg. The aortic valve area is 1.09 cm2. There is no aortic valve regurgitation. Mitral Valve There is mild anterior and posterior mitral leaflet thickening. There is moderate mitral annular calcification. There is trace mitral valve regurgitation. Possible moderate mitral stenosis. Pulmonic Valve The pulmonic valve is likely normal. Tricuspid Valve There is trace tricuspid valve regurgitation. There is no evidence of pulmonary hypertension. Great Vessels The asc aorta is normal in size. Small plaque is seen in the sino tubular ridge. Venous The inferior vena cava is normal in size and collapses greater than 50% with inspiration. Pericardium/Pleural There is no evidence of pericardial effusion. Prior Study Comparison Changes noted compared to prior study dated: 08/06/2019. Progression of aortic valve stenosis. See comment on mitral valve. Measurements 2D Linear Measurements IVSd: 1.09 0.6-0.9/0.6-1.0 cm LVIDd: 4.33 3.9-5.3/4.2-5.9 cm LVIDd Index: 2.34 2.4-3.2/2.2-3.1 cm/m2 LVIDs: 2.82 2.0-3.6 cm LVPWd: 1.16 0.7-1.1 cm LA Diam: 3.20 2.7-3.8/3.0-4.0 cm LAIDs Index: 1.73 1.5-2.3 cm/m2 LV Mass: 211.86 67-162/88-224 g LV Mass Index: 114.52 43-95/49-115 g/m2 LVOT Diam: 2.00 3.0+(-)1.3 cm 2D Systolic Function EF 4C: 63.30 >55% EF 2C: 63.10 >55% EF BiP: 63.80 >55% Mitral Valve MV VTI: 0.42 MV Pk Samir: 1.63 MV Mn Samir: 1.06 MV Pk Grad: 11.00 MV Mn Grad: 5.00 MV Pk E: 1.10 MV PK A: 1.38 MV Decel Time: 240.00 E/A: 0.80 E'Lateral: 5.77 E'Medial: 4.57 E/E' Med: 24.10 E/E' Lat: 19.10 PHT: 70.00 MVA PHT: 3.14 MVA Continuity: 2.03 Decel [place]: 4.57 Aortic Valve AoV Pk Samir: 3.35 AoV Mn Samir: 2.50 AoV VTI: 0.78 AoV Pk Grad: 45.00 Aov Mn Grad: 27.00 TREVOR Cont.VTI: 1.09 LVOT LVOT Pk Samir: 1.02 LVOT Mn Samir: 0.73 LVOT VTI: 0.27 LVOT Pk Grad: 4.00 LVOT Mn Grad: 2.00 LVOT Diam: 2.00 LVOT Area: 3.14 Diastolic Function MV Pk E: 1.10 MV Pk A: 1.38 E/A: 0.80 E'Medial: 4.57 E/E' Med: 24.10 E' Laterial: 5.77 E/E' Lat: 19.10 Right Ventricle TAPSE (mm): 21.80 TVS' Samir: 16.60 Tricuspid Valve RA Press: 3.00 Great Vessels Aorta Ao Asc: 3.30 2.1-3.4 cm Updated in Other Vendor System with Status of Final Paul Fishman MD electronically signed on 02/08/2023 11:03:36 AM with status of Final
[2023-02-07 16:03] LABS: Cholesterol 118 mg/dL (<200); HDL Cholesterol 48 mg/dL (>40); LDL Cholesterol Calculated 54 mg/dL (<100); Triglycerides 81 mg/dL (<150)
[2023-02-07] MEDS: Omeprazole 20 MG CAPSULE.DR PO (16:15)
[2023-02-07] MEDS: Gabapentin 600 MG TABLET PO ×2 (16:15→21:02)
[2023-02-07] MEDS: Heparin Sodium,Porcine 5,000 UNIT/ML VIAL 5000 UNIT SUBCUT (16:15)
[2023-02-07] MEDS: 0.9 % Sodium Chloride Flush 3 ML SYRINGE IVFLUSH ×2 (16:16→21:10)
--- NOTE | 2023-02-07 16:41 | PC.NURSE ---
pt has self administering insulin pump.
--- NOTE | 2023-02-07 17:30 | PM.NEUROCN ---
History of Present Illness Data of Consult Service Date: 02/07/23 Primary Care Provider: Gisselle Gilman MD [facility] Reason for consult: stroke This is a 82-year-old male with history of hypertension, insulin-dependent type 2 diabetes on insulin pump, hyperlipidemia, carpal tunnel syndrome, coronary artery disease, aortic stenosis, rheumatoid arthritis, history lumbar fusion, and restless legs syndrome who is a former smoker quit greater than 40 years ago presented to the ED with right lower extremity weakness upon getting up this morning and falling as a result hitting his head and right arm with laceration. He went to bed around 23:00 with mild dizziness and woke up around 01:00 to use the bathroom and felt like he was off balance and had to hold on. He then awoke again at 07:00 with significant weakness in the right lower extremity and fell to the right side upon standing sustaining a skin tear to the right forearm but did not hit his head or lose any consciousness.? He denies having any facial droop, slurred speech, dysphagia, visual changes, lightheadedness, upper extremity weakness or paresthesias, weakness in the left lower extremity or paresthesias in the lower extremities. Denies prior history TIA/CVA. He is also reporting right hip pain. Review of Systems Review of Systems: General: No fevers, malaise, unintentional weight loss HEENT: No blurred vision, diplopia Cardiovascular: No chest pain, palpitations, or leg edema Respiratory: No shortness of breath, wheezing, cough GI: No abdominal pain, nausea, vomiting, diarrhea, constipation, melena, hematochezia : No dysuria, hematuria, increased urinary frequency, decreased urinary output MSK: No myalgia, back pain. +R hip pain Neuro: No headaches, paresthesias. +RLE weakness Skin: No rashes or lesions Neurologic: Denies Sensory deficit (Neuro) FOR[facility]LY [facility], [facility] Past Medical History Medical History Aortic stenosis CAD (coronary artery disease) Carpal tunnel syndrome Diabetes Elevated cholesterol Former smoker HTN (hypertension) Insulin pump in place Rheumatoid arthritis Family History Family History Father Heart attack Heart disease Mother Pacemaker Cataracts, bilateral Sister Heart problem Heart valve replaced Arthritis Brother Heart attack Brother Rectal cancer Sister History of modified radical mastectomy of right breast Surgical History Surgical History H/O colonoscopy History of cholecystectomy History of hand surgery History of shoulder surgery Hx of cardiac catheterization Hx of hemorrhoidectomy Hx of lumbar discectomy Social History Social History Household Members: None Are you a primary nonfarm animal caretaker to a significant other at home: No Do you presently have visiting nurse or other home services: No Alcohol intake: former Patient Tobacco Use Status: Former Tobacco user Quit Date: 1961 Tobacco use type: Cigarette Years Smoked: 5 YEARS Smoked in Last 30 Days: No Use of substances other than those prescribed or required for medical reasons: No Advance Directives: Yes Advance Directives Information Provided: Yes Advance Directives on File: No Nutrition Risks: No Nutritional Risk Current occupational status: employed Current occupation: [employer] Allergies Allergy/AdvReac Type Severity Reaction Status Date / Time Penicillins Allergy Severe ITCHING-SEV Verified 02/07/23 09:30 ERE piperacillin [From Zosyn] Allergy Mild JAUNDICE Verified 02/07/23 09:30 tazobactam [From Zosyn] Allergy Mild JAUNDICE Verified 02/07/23 09:30 Active Medications: Current Medications Acetaminophen (Acetaminophen 325 Mg Tablet) 650 mg PO Q6H PRN PRN Reason: Pain, Mild (Pain Scale 1-3) Aspirin (Aspirin Enteric Coated 81 Mg Tablet.Dr) 81 mg PO DAILY [facility] Atorvastatin Calcium (Atorvastatin Calcium 80 Mg Tablet) 80 mg PO DAILY [facility] Calcium Carbonate (Calcium Carbonate 500 Mg Tablet) 500 mg PO BID [facility] Cyclobenzaprine HCl (Cyclobenzaprine Hcl 10 Mg Tablet) 10 mg PO DAILY [facility] Dextrose (Dextrose 50 % 25 Gm/50 Ml Syringe) 25 gm IVPUSH Q15M PRN; Protocol PRN Reason: per Hypoglycemia Standing Ord. Docusate Sodium (Docusate Sodium 100 Mg Capsule) 100 mg PO DAILY PRN PRN Reason: Constipation Escitalopram Oxalate (Escitalopram Oxalate 10 Mg Tablet) 10 mg PO DAILY [facility] Gabapentin (Gabapentin 600 Mg Tablet) 600 mg PO TID [facility] Last Admin: 02/07/23 16:15 Dose: 600 mg Glucose (Glucose Gel 15 Gm Gel..Gram.) 15 gm PO Q15M PRN; Protocol PRN Reason: per Hypoglycemia Standing Ord. Heparin Sodium (Porcine) (Heparin Sodium,Porcine 5,000 Unit/Ml Vial) 5,000 unit SUBCUT Q12H [facility] Last Admin: 02/07/23 16:15 Dose: 5,000 unit Hydroxychloroquine Sulfate (Hydroxychloroquine Sulfate 200 Mg Tablet) 200 mg PO BID [facility] Insulin Pump (Subcutaneous Insulin Pump) 1 each SUBCUT QIDACHS [facility]; Protocol Last Admin: 02/07/23 16:22 Dose: Not Given Multivitamins/Vitamin C (Multivitamin Tablet) 1 tab PO DAILY [facility] Non-Formulary Medication (Etanercept [Enbrel]) 50 mg SUBCUT HERNANDEZ@0900 [facility] Non-Formulary Medication (Pilocarpine Hcl) 5 mg PO BID [facility] Omeprazole (Omeprazole 20 Mg Capsule.Dr) 20 mg PO BID@0630,1630 [facility] Last Admin: 02/07/23 16:15 Dose: 20 mg Ondansetron HCl (Ondansetron Hcl 4 Mg/2 Ml Vial) 4 mg IVPUSH Q8H PRN PRN Reason: Nausea and Vomiting Prednisone (Prednisone 10 Mg Tablet) 10 mg PO DAILY [facility] Sodium Chloride (0.9 % Sodium Chloride Flush 3 Ml Syringe) 3 ml IVFLUSH QSHIFT [facility] Last Admin: 02/07/23 16:16 Dose: 3 ml Tamsulosin HCl (Tamsulosin Hcl 0.4 Mg Capsule) 0.4 mg PO BEDTIME [facility] Vitamin D (Cholecalciferol (Vitamin D3) 25 Mcg Tablet) 50 mcg PO BID [facility] Home Medications Medication Instructions Recorded Confirmed Last Taken Type Novolog U-100 Insulin aspart 80 units subcut (via wearable 06/01/20 02/07/23 02/07/23 09:00 History injectr) DAILY atorvastatin 40 mg tablet 40 mg PO BEDTIME 06/01/20 02/07/23 02/06/23 History tamsulosin 0.4 mg capsule 0.4 mg PO BEDTIME 06/24/22 02/07/23 02/06/23 History vitamins A,C,O-zdtp-inmcav 4,296 1 cap PO BID 06/24/22 02/07/23 02/07/23 09:00 History mcg-226 mg-90 mg capsule (PreserVision AREDS) acetaminophen 650 mg 650 mg PO Q8H PRN Pain 09/06/22 02/07/23 Unknown History tablet,extended release (Tylenol 8 Hour) amlodipine 2.5 mg tablet 2.5 mg PO DAILY 09/06/22 02/07/23 02/07/23 09:00 History citalopram 20 mg tablet 20 mg PO DAILY 09/06/22 02/07/23 02/07/23 09:00 History cyclobenzaprine 10 mg tablet 10 mg PO DAILY 09/06/22 02/07/23 02/07/23 09:00 History gabapentin 600 mg tablet 600 mg PO TID 09/06/22 02/07/23 02/07/23 09:00 History cholecalciferol (vitamin D3) 50 50 mcg PO BID 11/21/22 02/07/23 02/07/23 09:00 History mcg (2,000 unit) capsule calcium citrate 200 mg (950 mg) 800 mg PO BID 12/24/22 02/07/23 02/07/23 09:00 History tablet etanercept 50 mg/mL (1 mL) 50 mg subcut HERNANDEZ@0900 02/07/23 02/07/23 02/05/23 History subcutaneous syringe (Enbrel) Physical Exam Vital Signs: Vital Signs: Last Vital Signs Temp 97.6 F 02/07/23 12:00 Pulse 77 02/07/23 14:56 Resp 12 02/07/23 14:56 BP 175/85 H 02/07/23 14:56 Pulse Ox 92 02/07/23 14:56 O2 Del Method Room Air 02/07/23 14:56 BMI result Body Mass Index 28.4 Const: General: healthy appearing Nutritional Appearance: average body habitus Orientation/consciousness: oriented to person and patient oriented x3 Limitations: no limitations HEENT: Head: Yes normal to inspection Ears: external ears normal General nose exam: Normal external nose present Mouth: Normal oral and palatal mucosa present and oropharynx normal Throat: Yes posterior oropharynx normal Eyes: General: appearance normal, both eyes and all related structures Neck: Other: supple Neck: Yes normal visual inspection Chest: Chest palpation & inspection: normal inspection of the chest Resp: Auscultation: clear to auscultation bilaterally Cardio: Other: 4/6 BRISA Jugular venous distension: no JVD Rate: regular rate Rhythm: regular rhythm GI: Inspection: Yes normal to inspection Palpation (GI): Soft to palpation, nontender and No hepatosplenomegaly present Auscultation: normal bowel sounds : General: Yes no CVA tenderness Back/Spine/Pelvis: Back: no CVA tenderness Skin: Other: right arm with skin abrasion. Neuro: Other: Non focal exam with symmetrical lower extremity proximal weakness 5_/5 General: oriented to person and patient oriented x3 Cranial nerves: Yes CN's II-XII intact bilaterally Motor exam (neuro): 5/5 motor strength present throughout Sensory Exam: No Sensory deficit (Neuro) Extrem: General: Yes normal to inspection Psych: Appearance: grossly normal Results Labs 02/07/23 09:37 02/07/23 09:37 Labs: Short CBC 02/07/23 Range/Units 09:37 WBC 8.4 (4.8-10.8) X10*3/uL Hgb 13.4 L (14.0-18.0) g/dl Hct 42.1 (42.0-52.0) % Plt Count 156 L (160-400) X10*3/uL BMP 02/07/23 09:37 Sodium 144 Potassium 3.9 Chloride 109 H Carbon Dioxide 26 BUN 27 H Creatinine 1.17 Calcium 9.4 Urine 02/07/23 Range/Units 10:14 Urine Color Yellow Urine Appearance Clear Urine pH 5.5 (5.0-9.0) Ur Specific [place] >= 1.030 H (1.005-1.025) Urine Protein Trace (Neg-Trace) mg/dL Urine Glucose (UA) Negative (Negative) mg/dL Assessment and Plan (1) Transient ischemic attack (TIA): Status: Acute Possible small left hemisphere stroke Recommend MRI brain. ASA 81mg. (2) Carotid artery stenosis: Status: Acute Vascular surgery consult as OP. Plan 82-year-old male with history of hypertension, insulin-dependent type 2 diabetes, hyperlipidemia, carpal tunnel syndrome, coronary artery disease, aortic stenosis, rheumatoid arthritis, history lumbar fusion, and restless legs syndrome who is a former smoker quit greater than 40 years ago admitted for acute TIA vs CVA with significant carotid stenosis. #TIA -RLE resolved. Not a tpa candidate -Head CT negative for acute intracranial abnormality. CTA head/neck showing significant left-sided carotid stenosis with narrowing at the base -ASA 325 mg once given. Continue ASA 81 mg daily -optimize atorvastatin to 80 mg. Check lipid profile -passed bedside nursing swallow eval -stroke education performed -MRI brain ordered -neurology consult -echocardiogram -monitor on telemetry -PT/OT consult # carotid artery stenosis -75% on left, 50% on right -CTA head/neck as above -initiate aspirin. Hold on Plavix for now per vascular surgery -vascular surgery consult # insulin-dependent type 2 diabetes -point of care glucose -diabetic diet -patient to use own insulin pump # rheumatoid arthritis -genu home meds # hypertension -hold antihypertensives in the setting of TIA DVT prophylaxis- heparin Full code Patient requires inpatient stay at least 2 midnights for management of acute TIA with significant carotid stenosis possibly requiring intervention as well as expert consultation Time Spent With Patient Time: Total time managing care of this patient today ____ minutes. Procedures Date of Service Date of Service: 02/07/23
--- NOTE | 2023-02-07 17:54 | PC.NURSE ---
MRI form completed and faxed to MRI
--- NOTE | 2023-02-07 18:02 | PC.NURSE ---
report given to [facility] [place].
[2023-02-07 20:04] LABS: Glucose, Whole Blood 101 mg/dL (60-115)
[2023-02-07] MEDS: Cholecalciferol (Vitamin D3) 25 MCG TABLET 50 MCG PO (21:02)
[2023-02-07] MEDS: Hydroxychloroquine Sulfate 200 MG TABLET PO (21:02)
[2023-02-07] MEDS: Subcutaneous Insulin Pump 1 EACH SUBCUT (21:05)
[2023-02-07] MEDS: Tamsulosin HCL 0.4 MG CAPSULE PO (21:12)
[2023-02-07] MEDS: Acetaminophen 325 MG TABLET 650 MG PO (23:32)
--- NOTE | 2023-02-08 | CA_ITS ---
Acquisition Time: 2023-02-09 08:16:44 Total Exercise Time: 00:02:00 Test Indications: PREOP Medications: SEE H Protocol: LEXISCAN Max HR: 087 BPM 63% of Pred: 136 BPM Max BP: 126/064 mmHG Max Work Load: 1.0 METS Pharmacological stress test with Lexiscan injection while sitting and slowly kicking his legs, without anginal symptoms, without arrhythmias, with normotensive response to injection, with nondiagnostic EKGs. Test reviewed with Dr. Jiménez. Referred By: Hannah Jiménez Overread By: HANNAH JIMÉNEZ
[2023-02-08 03:45] VITALS: BP 134/77; PULSE 64; RESP 18; TEMP 36.7; O2SAT 95
[2023-02-08] MEDS: Omeprazole 20 MG CAPSULE.DR PO ×2 (05:01→17:23)
[2023-02-08] MEDS: Heparin Sodium,Porcine 5,000 UNIT/ML VIAL 5000 UNIT SUBCUT ×2 (05:01→17:23)
[2023-02-08 07:15] VITALS: BP 138/77; PULSE 71; RESP 16; TEMP 36.3; O2SAT 97
[2023-02-08 07:17] LABS: Glucose, Whole Blood 143 mg/dL (60-115)
[2023-02-08 07:18] LABS: Basophils Percent Auto 0.5 % (0-2); Eosinophils Absolute Auto 0.1 X10*3/uL (0.0-0.4); Eosinophils Percent Auto 1.4 % (0-4); Hematocrit 37.9 % (42.0-52.0); Hemoglobin 12.2 g/dl (14.0-18.0); Imm Gran Abs Auto 0.02 X10*3/uL (0.00-0.03); Imm Gran Pct Auto 0.3 % (0.0-0.4); Lymphocytes Absolute Auto 2.6 X10*3/uL (1.2-4.9); Lymphocytes Percent Auto 34.5 % (20-40); MANUAL DIFF FLAG SCAN; Mean Corpuscular HGB Conc 32.2 g/dl (31.0-36.0); Mean Corpuscular Hemoglobin 28.9 pg (27.0-33.0); Mean Corpuscular Volume 89.8 fL (80.0-98.0); Mean Platelet Volume 9.2 fL (9.4-12.4); Monocytes Absolute Auto 0.9 X10*3/uL (0.1-1.2); Monocytes Percent Auto 12.1 % (2-11); Neutrophils Absolute Auto 3.9 x10*3/uL (2.0-8.3); Neutrophils Percent Auto 51.2 % (45-73); PLT CLUMP 1; Red Blood Count 4.22 X10*6/uL (4.60-5.80); Red Cell Distribution Width 15.3 % (11.0-16.0); SCAN SMEAR FLAG 1
[2023-02-08 07:19] LABS: White Blood Count 7.6 X10*3/uL (4.8-10.8)
[2023-02-08] MEDS: predniSONE 10 MG TABLET PO (07:28)
[2023-02-08] MEDS: Atorvastatin Calcium 80 MG TABLET PO (07:28)
[2023-02-08] MEDS: Hydroxychloroquine Sulfate 200 MG TABLET PO ×2 (07:28→21:12)
[2023-02-08] MEDS: Cyclobenzaprine HCl 10 MG TABLET PO (07:29)
[2023-02-08] MEDS: Gabapentin 600 MG TABLET PO ×3 (07:29→21:12)
[2023-02-08] MEDS: Aspirin Enteric Coated 81 MG TABLET.DR PO (07:30)
[2023-02-08] MEDS: 0.9 % Sodium Chloride Flush 3 ML SYRINGE IVFLUSH ×3 (07:31→21:14)
[2023-02-08] MEDS: Multivitamin TABLET 1 TAB PO (07:31)
[2023-02-08] MEDS: Escitalopram Oxalate 10 MG TABLET PO (07:31)
[2023-02-08 07:33] LABS: Anion Gap 13 (12-20); Blood Urea Nitrogen 21 mg/dL (9-16); Calcium 9.7 mg/dL (8.4-10.2); Carbon Dioxide 28 mmol/L (22-29); Chloride 107 mmol/L (96-108); Creatinine Clr Calc Pharmacy 64.3; Estimated Glomerular Filt Rate > 60; Glucose Random 141 mg/dL (60-115); Potassium 4.6 mmol/L (3.3-5.1); Sodium 143 mmol/L (135-145)
[2023-02-08] MEDS: Cholecalciferol (Vitamin D3) 25 MCG TABLET 50 MCG PO ×2 (07:46→21:12)
[2023-02-08 08:29] LABS: Platelet Count 137 X10*3/uL (160-400)
[2023-02-08 08:30] LABS: SLIDE REVIEW VERIFIED
--- NOTE | 2023-02-08 09:51 | MHC.CM.PN ---
IMM 02/08/23, EMR REVIEWED PT ADMITTED W/TIA W/SIGNIFICANT CAROTID STENOSIS, CM MET W/PT WHO IS A&O, PT REPORTS HE LIVES ALONE, IS FULLY INEPENDENT AT BASELINE, DENIES USE OF DME HOWEVER HAS WALKERS/HOME MODIFICATIONS INCLUDING A CHAIR LIFT THAT HIS USED PRIOR TO HER PASSING IN 2019, PT DENIES HOME SERVICES. PT AWARE PT/OT RECOMMENDING ACUTE REHAB HOWEVER PT REPORTS HE WOULD LIKE TO RETURN HOME W/SERVICES, PT PREFERS [facility]. PT VERIFIES PCP IS ANUM VILLEDA AND REPORTS HE ALSO HAS A [facility] PCP [facility]I AND HCP ON FILE AT [facility], CM TO REQUEST.
[2023-02-08] MEDS: Subcutaneous Insulin Pump 1 EACH SUBCUT ×4 (10:21→21:01)
--- NOTE | 2023-02-08 10:37 | P.CONCA_ITS ---
History of Present Illness History of Present Illness Date of Service: 02/08/23 Chief complaint: tia significant carotid stenosis Narrative: This is a cardiology consultation regarding preop risk stratification for carotid surgery. Patient has been admitted for lower extremity weakness and thought to have TIA. CT of the neck at shown left-sided carotid stenosis and hence it seems that vascular surgery has seen him and recommended cardiology consultation prior to any interventions. Patient states that he goes to Dr. Grider from [facility]. Last appointment was about 6 months ago according to him. Patient states he has a remote history of cardiac catheterization from many decades ago but he cannot remember details. He thinks he might have had a stress test the last couple of years but again he is not sure. No documented coronary disease. It seems that he has aortic stenosis. At baseline, he can walk only about 200 ft or so as he states he gets short of breath. No clear anginal-type symptoms. Review of Systems Review of Systems: Yes all other systems are reviewed and are negative Constitutional: Constitutional: Reports as per HPI and Reports no additional constitutional complaints Eyes: Eyes: Reports as per HPI and Denies no additional eye complaints ENT: Denies system reviewed and no additional complaints, except as documented and Reports as per HPI Cardiovascular: Cardiovascular: Reports as per HPI, Reports no additional cardiovascular complaints, Denies acrocyanosis, Denies cool extremities, Denies chest pain, Denies leg edema, Denies lightheadedness, Denies palpitations and Denies dyspnea Respiratory: Respiratory: Reports as per HPI, Denies no additional respiratory complaints and Denies dyspnea Gastrointestinal: Gastrointestinal: Reports as per HPI and Denies no additional gastrointestinal complaints Genitourinary: Genitourinary: Reports no additional male genitourinary complaints and Reports as per HPI Musculoskeletal: Musculoskeletal: Reports no additional musculoskeletal complaints and Reports as per HPI Integumentary/Breasts: Skin/Breast: Reports system reviewed and no additional complaints, except as docu Neurologic: Reports system reviewed and no additional complaints, except as documented and Reports as per HPI Psychiatric: Psychiatric: Reports no additional psychiatric complaints and Rep orts as per HPI Endocrine: Endocrine: Reports no additional endocrine complaints, Reports as per HPI and Denies palpitations Hematologic/Lymphatic: Hematologic/Lymphatic: Reports no additional hematologic/lymphatic complaints and Reports as per HPI Allergic/Immunologic: Allergic/Immunologic: Reports no additional allergic/immunologic complaints and Reports as per HPI [facility] Past Medical History Medical History (Updated 02/08/23 @ 10:40 by Paul Fishman MD) Aortic stenosis CAD (coronary artery disease) Carpal tunnel syndrome Diabetes Elevated cholesterol Former smoker HTN (hypertension) Insulin pump in place Rheumatoid arthritis Family History Family History Father Heart attack Heart disease Mother Pacemaker Cataracts, bilateral Sister Heart problem Heart valve replaced Arthritis Brother Heart attack Brother Rectal cancer Sister History of modified radical mastectomy of right breast Surgical History Surgical History H/O colonoscopy History of cholecystectomy History of hand surgery History of shoulder surgery Hx of cardiac catheterization Hx of hemorrhoidectomy Hx of lumbar discectomy Social History Social History Household Members: None Housing: House Are you a primary medicare compliance auditor to a significant other at home: No Do you presently have visiting nurse or other home services: No Alcohol intake: former Patient Tobacco Use Status: Former Tobacco user Quit Date: 1963 Tobacco use type: Cigarette Years Smoked: 5 YEARS Smoked in Last 30 Days: No Use of substances other than those prescribed or required for medical reasons: No Currently Displaying Signs/Symptoms of Drug Intoxication Withdrawal: No Have you been hit, kicked, punched, or otherwise hurt by someone within the past year? If so, by whom?: No Do you feel safe in your current relationship?: No Current Relationship Is there a partner from a previous relationship who is making you feel unsafe now?: No Jehovah'[employer] Witness Healthcare Practices: Jainism Advance Directives: Yes Advance Directives Information Provided: Yes Advance Directives on File: No Advance Directives Date on File: 02/07/23 Do you have thoughts of harming others: None Do you have a plan to hurt others: No Plan Recently lost weight without trying: Yes How much weight loss: 2-13 pounds Nutrition Risks: No Nutritional Risk service: Yes Current occupational status: employed Current occupation: [employer] Allergies Allergy/AdvReac Type Severity Reaction Status Date / Time Penicillins Allergy Severe ITCHING-SEV Verified 02/07/23 09:30 ERE piperacillin [From Zosyn] Allergy Mild JAUNDICE Verified 02/07/23 09:30 tazobactam [From Zosyn] Allergy Mild JAUNDICE Verified 02/07/23 09:30 Active Medications: Current Medications Acetaminophen (Acetaminophen 325 Mg Tablet) 650 mg PO Q6H PRN PRN Reason: Pain, Mild (Pain Scale 1-3) Last Admin: 02/07/23 23:32 Dose: 650 mg Aspirin (Aspirin Enteric Coated 81 Mg Tablet.Dr) 81 mg PO DAILY [facility] Last Admin: 02/08/23 07:30 Dose: 81 mg Atorvastatin Calcium (Atorvastatin Calcium 80 Mg Tablet) 80 mg PO DAILY [facility] Last Admin: 02/08/23 07:28 Dose: 80 mg Calcium Carbonate (Calcium Carbonate 500 Mg Tablet) 500 mg PO BID [facility] Last Admin: 02/08/23 07:29 Dose: 500 mg Cyclobenzaprine HCl (Cyclobenzaprine Hcl 10 Mg Tablet) 10 mg PO DAILY [facility] Last Admin: 02/08/23 07:29 Dose: 10 mg Dextrose (Dextrose 50 % 25 Gm/50 Ml Syringe) 25 gm IVPUSH Q15M PRN; Protocol PRN Reason: per Hypoglycemia Standing Ord. Docusate Sodium (Docusate Sodium 100 Mg Capsule) 100 mg PO DAILY PRN PRN Reason: Constipation Escitalopram Oxalate (Escitalopram Oxalate 10 Mg Tablet) 10 mg PO DAILY [facility] Last Admin: 02/08/23 07:31 Dose: 10 mg Gabapentin (Gabapentin 600 Mg Tablet) 600 mg PO TID [facility] Last Admin: 02/08/23 07:29 Dose: 600 mg Glucose (Glucose Gel 15 Gm Gel..Gram.) 15 gm PO Q15M PRN; Protocol PRN Reason: per Hypoglycemia Standing Ord. Heparin Sodium (Porcine) (Heparin Sodium,Porcine 5,000 Unit/Ml Vial) 5,000 unit SUBCUT Q12H [facility] Last Admin: 02/08/23 05:01 Dose: 5,000 unit Hydroxychloroquine Sulfate (Hydroxychloroquine Sulfate 200 Mg Tablet) 200 mg PO BID [facility] Last Admin: 02/08/23 07:28 Dose: 200 mg Insulin Pump (Subcutaneous Insulin Pump) 1 each SUBCUT QIDACHS [facility]; Protocol Last Admin: 02/08/23 10:21 Dose: 1 each Multivitamins/Vitamin C (Multivitamin Tablet) 1 tab PO DAILY [facility] Last Admin: 02/08/23 07:31 Dose: 1 tab Non-Formulary Medication (Etanercept [Enbrel]) 50 mg SUBCUT HERNANDEZ@0900 [facility] Non-Formulary Medication (Pilocarpine Hcl) 5 mg PO BID [facility] Last Admin: 02/08/23 07:27 Dose: 5 mg Omeprazole (Omeprazole 20 Mg Capsule.Dr) 20 mg PO BID@0630,1630 [facility] Last Admin: 02/08/23 05:01 Dose: 20 mg Ondansetron HCl (Ondansetron Hcl 4 Mg/2 Ml Vial) 4 mg IVPUSH Q8H PRN PRN Reason: Nausea and Vomiting Prednisone (Prednisone 10 Mg Tablet) 10 mg PO DAILY [facility] Last Admin: 02/08/23 07:28 Dose: 10 mg Sodium Chloride (0.9 % Sodium Chloride Flush 3 Ml Syringe) 3 ml IVFLUSH QSHIFT [facility] Last Admin: 02/08/23 07:31 Dose: 3 ml Tamsulosin HCl (Tamsulosin Hcl 0.4 Mg Capsule) 0.4 mg PO BEDTIME [facility] Last Admin: 02/07/23 21:12 Dose: 0.4 mg Vitamin D (Cholecalciferol (Vitamin D3) 25 Mcg Tablet) 50 mcg PO BID [facility] Last Admin: 02/08/23 07:46 Dose: 50 mcg Home Medications Medication Instructions Recorded Confirmed Last Taken Type Novolog U-100 Insulin aspart 80 units subcut (via wearable 06/01/20 02/07/23 02/07/23 09:00 History injectr) DAILY atorvastatin 40 mg tablet 40 mg PO BEDTIME 06/01/20 02/07/23 02/06/23 History tamsulosin 0.4 mg capsule 0.4 mg PO BEDTIME 06/24/22 02/07/23 02/06/23 History vitamins A,C,T-tuxr-ipukyj 4,296 1 cap PO BID 06/24/22 02/07/23 02/07/23 09:00 History mcg-226 mg-90 mg capsule (PreserVision AREDS) acetaminophen 650 mg 650 mg PO Q8H PRN Pain 09/06/22 02/07/23 Unknown History tablet,extended release (Tylenol 8 Hour) amlodipine 2.5 mg tablet 2.5 mg PO DAILY 09/06/22 02/07/23 02/07/23 09:00 History citalopram 20 mg tablet 20 mg PO DAILY 09/06/22 02/07/23 02/07/23 09:00 History cyclobenzaprine 10 mg tablet 10 mg PO DAILY 09/06/22 02/07/23 02/07/23 09:00 History gabapentin 600 mg tablet 600 mg PO TID 09/06/22 02/07/23 02/07/23 09:00 History cholecalciferol (vitamin D3) 50 50 mcg PO BID 11/21/22 02/07/23 02/07/23 09:00 History mcg (2,000 unit) capsule calcium citrate 200 mg (950 mg) 800 mg PO BID 12/24/22 02/07/23 02/07/23 09:00 History tablet etanercept 50 mg/mL (1 mL) 50 mg subcut HERNANDEZ@0900 02/07/23 02/07/23 02/05/23 History subcutaneous syringe (Enbrel) Physical Exam Vital Signs: Vital Signs: Last Vital Signs Temp 97.4 F 02/08/23 07:15 Pulse 71 02/08/23 07:15 Resp 16 02/08/23 07:15 BP 138/77 02/08/23 07:15 Pulse Ox 97 02/08/23 07:15 O2 Del Method Room Air 02/08/23 07:15 BMI result Body Mass Index 29.1 Const: General: comfortable and no acute distress Orientation/consciousness : patient oriented x3 HEENT: Other: Unremarkable Head: Yes normal to inspection Neck: Neck: Yes normal visual inspection Chest: Chest palpation & inspection: normal inspection of the chest Resp: Auscultation: clear to auscultation bilaterally Cardio: Palpation: normal PMI Heart sounds: S1 normal heart sound present, S2 normal heart sound present, no gallops, Murmur heart sound present systolic III/ and no rubs GI: Palpation (GI): Soft to palpation Back/Spine/Pelvis: Other: unremarkable Skin: General skin exam: no rashes or lesions noted Neuro: General: patient oriented x3 Extrem: General: Yes normal to inspection Psych: Mental Status: mental status grossly normal Objective Labs and Meds 02/08/23 06:55 02/08/23 06:55 Lab results: Laboratory Results - last 24 hr 02/07/23 02/07/23 02/07/23 09:37 15:11 20:00 WBC RBC Hgb Hct MCV MCH MCHC RDW Plt Count MPV Immature Gran % (Auto) Neut % (Auto) Lymph % (Auto) [place] % (Auto) Eos % (Auto) Baso % (Auto) Lymph # (Auto) [place] # (Auto) Eos # (Auto) Baso # (Auto) Abs Immat Gran (auto) Absolute Neuts (auto) Absolute Nucleated RBC Nucleated RBC % (auto) Smear Tech's Comments Sodium Potassium Chloride Carbon Dioxide Anion Gap BUN Creatinine Estim Creat Clear Calc Estimated GFR POC Glucose 101 Random Glucose Calcium Troponin I High Sens 21.0 Triglycerides 81 Cholesterol 118 LDL Cholesterol, Calc 54 HDL Cholesterol 48 02/08/23 02/08/23 02/08/23 06:55 06:55 07:00 WBC 7.6 RBC 4.22 L Hgb 12.2 L Hct 37.9 L MCV 89.8 MCH 28.9 MCHC 32.2 RDW 15.3 Plt Count 137 L MPV 9.2 L Immature Gran % (Auto) 0.3 Neut % (Auto) 51.2 Lymph % (Auto) 34.5 [place] % (Auto) 12.1 H Eos % (Auto) 1.4 Baso % (Auto) 0.5 Lymph # (Auto) 2.6 [place] # (Auto) 0.9 Eos # (Auto) 0.1 Baso # (Auto) 0.0 Abs Immat Gran (auto) 0.02 Absolute Neuts (auto) 3.9 Absolute Nucleated RBC 0.000 Nucleated RBC % (auto) 0.0 Smear Tech's Comments VERIFIED Sodium 143 Potassium 4.6 Chloride 107 Carbon Dioxide 28 Anion Gap 13 BUN 21 H Creatinine 0.83 Estim Creat Clear Calc 64.3 Estimated GFR > 60 POC Glucose 143 H Random Glucose 141 H Calcium 9.7 Troponin I High Sens Triglycerides Cholesterol LDL Cholesterol, Calc HDL Cholesterol ECG Interpretation: EKG with sinus rhythm; 66/Min; leftward axis; left ventricle hypertrophy with QRS widening; nonspecific ST-T changes. Imaging Radiologist's impression: Impressions Head/Neck CTA 02/07/23 12:07 IMPRESSION: Heavily calcified atheromatous plaque involves both carotid bifurcations. There is 75% stenosis of the left internal carotid artery at its origin and 25% stenosis of the right internal carotid artery at its origin. Moderate to high-grade focal narrowing at the origins of both vertebral arteries which are otherwise patent. No intracranial large vessel occlusion. No evidence of acute territorial infarct. No abnormal intracranial mass or enhancement. Hip/Pelvis X-Ray 02/07/23 15:28 IMPRESSION: 1. Chronic appearing asymmetric deformity of the right frontal neck without definitive acute fracture. Correlate with physical exam and patient history. 2. Mild bilateral hip osteoarthritis and generalized osteopenia. Brain MRI 02/07/23 18:39 IMPRESSION: No acute infarct or other acute intracranial abnormality. Elbow X-Ray 02/07/23 20:17 IMPRESSION: 1. No acute fractures or subluxation. 2. Moderate multi compartmental degenerative osteoarthritis. 3. Soft tissue thickening adjacent to the olecranon process, correlate for olecranon bursitis. Assessment and Plan (1) Preoperative cardiovascular examination: Status: Acute (2) Carotid artery stenosis: Status: Acute (3) Non-rheumatic aortic stenosis: Status: Acute (4) CAD (coronary artery disease): Status: Acute Plan High sensitivity troponins are within range. Brain MRI shows no acute infarct or other acute intracranial abnormality. 70% stenosis of the left internal carotid artery and 20% in the right internal carotid artery. Moderate to high-grade focal narrowing at the origins of both vertebral arteries. Overall, he needs further workup from cardiac. If nothing recent, will need echocardiogram. Will need to also look at his ischemic evaluation. We will contact his agent broker in [place] and obtain records and then decide f urther. Otherwise, aspirin, high-dose statins. Discussed with Dr. Ho. Time Spent With Patient Time: Total time managing care of this patient today ____ minutes. Procedures Date of Service Date of Service: 02/08/23
[2023-02-08 11:04] LABS: Glucose, Whole Blood 229 mg/dL (60-115)
[2023-02-08 11:05] VITALS: BP 102/61; PULSE 65; RESP 16; TEMP 36.6; O2SAT 96
--- NOTE | 2023-02-08 11:10 | PM.CNGS ---
History of Present Illness Consult details Consult date: 02/08/23 Reason for consult: other (Symptomatic carotid stenosis) Narrative: Complex 82-year-old gentleman who originally presented to the hospital with an acute fall. He noted an acute onset right lower extremity weakness. He had actually gotten out of bed. He felt that the right lower extremity was almost like jelly and was unable to bear weight in fell down. He subsequently called his son and they E subsequently had the plea sheath and EMS come and he was brought to the hospital. He was then worked up with stroke protocol inclusive of CT and MRI. Both CT of the head and MRI of the head was negative for stroke. He did have a finding left-sided carotid stenosis of 75%. Review of Systems Review of Systems: Yes all other systems are reviewed and are negative Constitutional: Constitutional: Reports no additional constitutional complaints ENT: Reports Normal hearing present Cardiovascular: Cardiovascular: Denies chest pain, Denies chest pain at rest, Denies chest pain with activity and Denies pedal edema Respiratory: Respiratory: Denies cough Gastrointestinal: Gastrointestinal: Denies abdominal pain Musculoskeletal: Musculoskeletal: Denies abnormal gait, Denies muscle cramps and Denies radiating pain into limb Integumentary/Breasts: Skin/Breast: Denies skin ulcer and Denies wounds Neurologic: Reports Normal hearing present and Denies abnormal gait Psychiatric: Psychiatric: Reports no additional psychiatric complaints [facility] Past Medical History Medical History (Updated 02/08/23 @ 11:12 by Alfie Dias MD) Aortic stenosis CAD (coronary artery disease) Carpal tunnel syndrome Diabetes Elevated cholesterol Former smoker HTN (hypertension) Insulin pump in place Rheumatoid arthritis Family History Family History Father Heart attack Heart disease Mother Pacemaker Cataracts, bilateral Sister Heart problem Heart valve replaced Arthritis Brother Heart attack Brother Rectal cancer Sister History of modified radical mastectomy of right breast Surgical History Surgical History H/O colonoscopy History of cholecystectomy History of hand surgery History of shoulder surgery Hx of cardiac catheterization Hx of hemorrhoidectomy Hx of lumbar discectomy Social History Social History Household Members: None Housing: House Are you a primary career services assistant to a significant other at home: No Do you presently have visiting nurse or other home services: No Alcohol intake: former Patient Tobacco Use Status: Former Tobacco user Quit Date: 1961 Tobacco use type: Cigarette Years Smoked: 5 YEARS Smoked in Last 30 Days: No Use of substances other than those prescribed or required for medical reasons: No Currently Displaying Signs/Symptoms of Drug Intoxication Withdrawal: No Have you been hit, kicked, punched, or otherwise hurt by someone within the past year? If so, by whom?: No Do you feel safe in your current relationship?: No Current Relationship Is there a partner from a previous relationship who is making you feel unsafe now?: No Christianity Healthcare Practices: [employer] Advance Directives: Yes Advance Directives Information Provided: Yes Advance Directives on File: No Advance Directives Date on File: 02/07/23 Do you have thoughts of harming others: None Do you have a plan to hurt others: No Plan Recently lost weight without trying: Yes How much weight loss: 2-13 pounds Nutrition Risks: No Nutritional Risk service: Yes Current occupational status: employed Current occupation: [employer] Allergies Allergy/AdvReac Type Severity Reaction Status Date / Time Penicillins Allergy Severe ITCHING-SEV Verified 02/07/23 09:30 ERE piperacillin [From Zosyn] Allergy Mild JAUNDICE Verified 02/07/23 09:30 tazobactam [From Zosyn] Allergy Mild JAUNDICE Verified 02/07/23 09:30 Active Medications: Current Medications Acetaminophen (Acetaminophen 325 Mg Tablet) 650 mg PO Q6H PRN PRN Reason: Pain, Mild (Pain Scale 1-3) Last Admin: 02/07/23 23:32 Dose: 650 mg Aspirin (Aspirin Enteric Coated 81 Mg Tablet.) 81 mg PO DAILY [facility] Last Admin: 02/08/23 07:30 Dose: 81 mg Atorvastatin Calcium (Atorvastatin Calcium 80 Mg Tablet) 80 mg PO DAILY [facility] Last Admin: 02/08/23 07:28 Dose: 80 mg Calcium Carbonate (Calcium Carbonate 500 Mg Tablet) 500 mg PO BID [facility] Last Admin: 02/08/23 07:29 Dose: 500 mg Cyclobenzaprine HCl (Cyclobenzaprine Hcl 10 Mg Tablet) 10 mg PO DAILY [facility] Last Admin: 02/08/23 07:29 Dose: 10 mg Dextrose (Dextrose 50 % 25 Gm/50 Ml Syringe) 25 gm IVPUSH Q15M PRN; Protocol PRN Reason: per Hypoglycemia Standing Ord. Docusate Sodium (Docusate Sodium 100 Mg Capsule) 100 mg PO DAILY PRN PRN Reason: Constipation Escitalopram Oxalate (Escitalopram Oxalate 10 Mg Tablet) 10 mg PO DAILY [facility] Last Admin: 02/08/23 07:31 Dose: 10 mg Gabapentin (Gabapentin 600 Mg Tablet) 600 mg PO TID [facility] Last Admin: 02/08/23 07:29 Dose: 600 mg Glucose (Glucose Gel 15 Gm Gel..Gram.) 15 gm PO Q15M PRN; Protocol PRN Reason: per Hypoglycemia Standing Ord. Heparin Sodium (Porcine) (Heparin Sodium,Porcine 5,000 Unit/Ml Vial) 5,000 unit SUBCUT Q12H [facility] Last Admin: 02/08/23 05:01 Dose: 5,000 unit Hydroxychloroquine Sulfate (Hydroxychloroquine Sulfate 200 Mg Tablet) 200 mg PO BID [facility] Last Admin: 02/08/23 07:28 Dose: 200 mg Insulin Pump (Subcutaneous Insulin Pump) 1 each SUBCUT QIDACHS [facility]; Protocol Last Admin: 02/08/23 10:21 Dose: 1 each Multivitamins/Vitamin C (Multivitamin Tablet) 1 tab PO DAILY [facility] Last Admin: 02/08/23 07:31 Dose: 1 tab Non-Formulary Medication (Etanercept [Enbrel]) 50 mg SUBCUT HERNANDEZ@0900 [facility] Non-Formulary Medication (Pilocarpine Hcl) 5 mg PO BID [facility] Last Admin: 02/08/23 07:27 Dose: 5 mg Omeprazole (Omeprazole 20 Mg Capsule.) 20 mg PO BID@0630,1630 [facility] Last Admin: 02/08/23 05:01 Dose: 20 mg Ondansetron HCl (Ondansetron Hcl 4 Mg/2 Ml Vial) 4 mg IVPUSH Q8H PRN PRN Reason: Nausea and Vomiting Prednisone (Prednisone 10 Mg Tablet) 10 mg PO DAILY [facility] Last Admin: 02/08/23 07:28 Dose: 10 mg Sodium Chloride (0.9 % Sodium Chloride Flush 3 Ml Syringe) 3 ml IVFLUSH QSHIFT [facility] Last Admin: 02/08/23 07:31 Dose: 3 ml Tamsulosin HCl (Tamsulosin Hcl 0.4 Mg Capsule) 0.4 mg PO BEDTIME [facility] Last Admin: 02/07/23 21:12 Dose: 0.4 mg Vitamin D (Cholecalciferol (Vitamin D3) 25 Mcg Tablet) 50 mcg PO BID [facility] Last Admin: 02/08/23 07:46 Dose: 50 mcg Home Medications Medication Instructions Recorded Confirmed Last Taken Type Novolog U-100 Insulin aspart 80 units subcut (via wearable 06/01/20 02/07/23 02/07/23 09:00 History injectr) DAILY atorvastatin 40 mg tablet 40 mg PO BEDTIME 06/01/20 02/07/23 02/06/23 History tamsulosin 0.4 mg capsule 0.4 mg PO BEDTIME 06/24/22 02/07/23 02/06/23 History vitamins A,C,N-hwzs-ongwqh 4,296 1 cap PO BID 06/24/22 02/07/23 02/07/23 09:00 History mcg-226 mg-90 mg capsule (PreserVision AREDS) acetaminophen 650 mg 650 mg PO Q8H PRN Pain 09/06/22 02/07/23 Unknown History tablet,extended release (Tylenol 8 Hour) amlodipine 2.5 mg tablet 2.5 mg PO DAILY 09/06/22 02/07/23 02/07/23 09:00 History citalopram 20 mg tablet 20 mg PO DAILY 09/06/22 02/07/23 02/07/23 09:00 History cyclobenzaprine 10 mg tablet 10 mg PO DAILY 09/06/22 02/07/23 02/07/23 09:00 History gabapentin 600 mg tablet 600 mg PO TID 09/06/22 02/07/23 02/07/23 09:00 History cholecalciferol (vitamin D3) 50 50 mcg PO BID 11/21/22 02/07/23 02/07/23 09:00 History mcg (2,000 unit) capsule calcium citrate 200 mg (950 mg) 800 mg PO BID 12/24/22 02/07/23 02/07/23 09:00 History tablet etanercept 50 mg/mL (1 mL) 50 mg subcut HERNANDEZ@0900 02/07/23 02/07/23 02/05/23 History subcutaneous syringe (Enbrel) Physical Exam Vital Signs: Vital Signs: Last Vital Signs Temp 97.8 F 02/08/23 11:05 Pulse 65 02/08/23 11:05 Resp 16 02/08/23 11:05 BP 102/61 02/08/23 11:05 Pulse Ox 96 02/08/23 11:05 O2 Del Method Room Air 02/08/23 11:05 BMI result Body Mass Index 29.1 Const: General: cooperative, healthy appearing and comfortable Orientation/consciousness: oriented to person, oriented to place and oriented to time HEENT: Head: Yes normal to inspection Neck: Neck: Yes normal visual inspection Carotids: no bruits Chest: Chest palpation & inspection: normal inspection of the chest Resp: Effort & Inspection: normal respiratory effort and able to speak in complete sentences Auscultation: clear to auscultation bilaterally, no crackles, no rales, no rhonchi and no wheezes Cardio: Rate: regular rate Rhythm: regular rhythm Heart sounds: S1 normal heart sound present and S2 normal heart sound present Bruits: no carotid bruits Peripheral pulses: Peripheral pulses 2+ throughout GI: Inspection: Yes normal to inspection Skin: Wounds: no wounds Hair: normal Neuro: General: oriented to person, oriented to place and oriented to time Cranial nerves: Yes CN's II-XII intact bilaterally and Yes Normal hearing present Cognition (Neuro): normal cognition Motor exam (neuro): 5/5 motor strength present throughout Extrem: Other: venous exam: No significant superficial varicosities or spider telangiectasias, minimal edema General: No clubbing, No cyanosis and No edema Psych: Appearance: grossly normal Mental Status: mental status grossly normal Speech and movement: Normal speech and movement present Results Labs 02/08/23 06:55 02/08/23 06:55 Labs: Abnormal lab results 02/08/23 02/08/23 02/08/23 Range/Units 06:55 06:55 07:00 RBC 4.22 L (4.60-5.80) X10*6/uL Hgb 12.2 L (14.0-18.0) g/dl Hct 37.9 L (42.0-52.0) % Plt Count 137 L (160-400) X10*3/uL MPV 9.2 L (9.4-12.4) fL [place] % (Auto) 12.1 H (2-11) % BUN 21 H (9-16) mg/dL POC Glucose 143 H (60-115) mg/dL Random Glucose 141 H (60-115) mg/dL 02/08/23 Range/Units 10:48 RBC (4.60-5.80) X10*6/uL Hgb (14.0-18.0) g/dl Hct (42.0-52.0) % Plt Count (160-400) X10*3/uL MPV (9.4-12.4) fL [place] % (Auto) (2-11) % BUN (9-16) mg/dL POC Glucose 229 H (60-115) mg/dL Random Glucose (60-115) mg/dL Short CBC 02/08/23 Range/Units 06:55 WBC 7.6 (4.8-10.8) X10*3/uL Hgb 12.2 L (14.0-18.0) g/dl Hct 37.9 L (42.0-52.0) % Plt Count 137 L (160-400) X10*3/uL BMP 02/08/23 06:55 Sodium 143 Potassium 4.6 Chloride 107 Carbon Dioxide 28 BUN 21 H Creatinine 0.83 Calcium 9.7 Urine 02/07/23 Range/Units 10:14 Urine Color Yellow Urine Appearance Clear Urine pH 5.5 (5.0-9.0) Ur Specific [place] >= 1.030 H (1.005-1.025) Urine Protein Trace (Neg-Trace) mg/dL Urine Glucose (UA) Negative (Negative) mg/dL All other labs normal. Imaging Additional studies: CT scan written report and images were reviewed and demonstrates left-sided stenosis of 75% Assessment and Plan (1) Symptomatic stenosis of left carotid artery: Status: Acute Plan In short it appears that the patient has symptomatic left carotid stenosis. Fortunately he did not have a stroke. He has been started on aspirin and statin. He will require left carotid endarterectomy as an inpatient. He will require cardiac risk stratification as well. This was all discussed in detail with the patient. He agreed and would like to move forward. We will continue to monitor this patient with you. Thank you for allowing us to assist in his care. The patient had an opportunity to ask questions regarding the treatment plan. All questions were answered. Imaging studies, laboratory studies and physical exam results were discussed and reviewed in detail. No major barriers to understanding were identified. The patient expressed understanding and agreement with the above treatment plan. The patient is aware they should contact our office by phone for worsening of the current condition or the appearance of new symptoms. Thank you for allowing me to participate in the vascular care of this patient. If you have any questions or concerns regarding the treatment for the above condition please do not hesitate to contact me. The office telephone contact is [phone]. This note is constructed using voice recognition software. While every effort has been made to ensure accuracy, sales attendant errors may have been included. Thank you for allowing me to participate in the care of your patient. Yours sincerely, Alfie Dias MD, FACS, R.P.V.I. Time Spent With Patient Time: Total time managing care of this patient today ____ minutes. Procedures Date of Service Date of Service: 02/08/23
--- NOTE | 2023-02-08 11:45 | MHC.CM.PN ---
CM MET W/PT TO DISCUSS DISPO, P.T. REC'S ACUTE REHAB, PER PT PREFERRED AR IS [facility] CHO[facility], REFERRAL TO BE PLACED.
--- NOTE | 2023-02-08 15:06 | P.PNIM_ITS ---
Subjective Subjective Date of Service: 02/08/23 Interval History: Seen and evaluated this morning reporting no weakness but mild numbness CTA showed significant stenosis MR negative for MRI No reported weakness or AMS overnight Review of Systems Review of Systems: Yes all other systems are reviewed and are negative Physical Exam Vital Signs: Vital Signs: Last Vital Signs Temp 97.8 F 02/08/23 11:05 Pulse 65 02/08/23 11:05 Resp 16 02/08/23 11:05 BP 102/61 02/08/23 11:05 Pulse Ox 96 02/08/23 11:05 O2 Del Method Room Air 02/08/23 11:05 BMI result Body Mass Index 29.1 Const: Other: Constitutional : Awake, interactive, not in distress Neck : Normal inspection, Supple Cardiovascular : RRR, no JVP, no lower extremity edema Respiratory : good bilateral air entry, no crackles, wheezes or rhonchi Gastrointestinal: soft, lax, Normal bowel sounds, Non tender Skin : Warm, Dry Neurological : Alert & oriented x3, No focal deficit , CN 2-12 within normal, mild sensory difference in RU and RL extremities for superficial touch Objective Data Active Medications Acetaminophen (Acetaminophen 325 Mg Tablet) 650 mg PO Q6H PRN PRN Reason: Pain, Mild (Pain Scale 1-3) Last Admin: 02/07/23 23:32 Dose: 650 mg Documented By: SIMI Aspirin (Aspirin Enteric Coated 81 Mg Tablet.) 81 mg PO DAILY [facility] Last Admin: 02/08/23 07:30 Dose: 81 mg Documented By: JOSE Atorvastatin Calcium (Atorvastatin Calcium 80 Mg Tablet) 80 mg PO DAILY [facility] Last Admin: 02/08/23 07:28 Dose: 80 mg Documented By: JOSE Calcium Carbonate (Calcium Carbonate 500 Mg Tablet) 500 mg PO BID [facility] Last Admin: 02/08/23 07:29 Dose: 500 mg Documented By: JOSE Cyclobenzaprine HCl (Cyclobenzaprine Hcl 10 Mg Tablet) 10 mg PO DAILY [facility] Last Admin: 02/08/23 07:29 Dose: 10 mg Documented By: JOSE Dextrose (Dextrose 50 % 25 Gm/50 Ml Syringe) 25 gm IVPUSH Q15M PRN; Protocol PRN Reason: per Hypoglycemia Standing Ord. Docusate Sodium (Docusate Sodium 100 Mg Capsule) 100 mg PO DAILY PRN PRN Reason: Constipation Escitalopram Oxalate (Escitalopram Oxalate 10 Mg Tablet) 10 mg PO DAILY [facility] Last Admin: 02/08/23 07:31 Dose: 10 mg Documented By: JOSE Gabapentin (Gabapentin 600 Mg Tablet) 600 mg PO TID [facility] Last Admin: 02/08/23 07:29 Dose: 600 mg Documented By: JOSE Glucose (Glucose Gel 15 Gm Gel..Gram.) 15 gm PO Q15M PRN; Protocol PRN Reason: per Hypoglycemia Standing Ord. Heparin Sodium (Porcine) (Heparin Sodium,Porcine 5,000 Unit/Ml Vial) 5,000 unit SUBCUT Q12H [facility] Last Admin: 02/08/23 05:01 Dose: 5,000 unit Documented By: SIMI Hydroxychloroquine Sulfate (Hydroxychloroquine Sulfate 200 Mg Tablet) 200 mg PO BID [facility] Last Admin: 02/08/23 07:28 Dose: 200 mg Documented By: JOSE Insulin Pump (Subcutaneous Insulin Pump) 1 each SUBCUT QIDACHS [facility]; Protocol Last Admin: 02/08/23 12:45 Dose: 1 each Documented By: JOSE Multivitamins/Vitamin C (Multivitamin Tablet) 1 tab PO DAILY [facility] Last Admin: 02/08/23 07:31 Dose: 1 tab Documented By: JOSE Non-Formulary Medication (Etanercept [Enbrel]) 50 mg SUBCUT HERNANDEZ@0900 [facility] Non-Formulary Medication (Pilocarpine Hcl) 5 mg PO BID [facility] Last Admin: 02/08/23 07:27 Dose: 5 mg Documented By: JOSE Omeprazole (Omeprazole 20 Mg Capsule.) 20 mg PO BID@0630,1630 [facility] Last Admin: 02/08/23 05:01 Dose: 20 mg Documented By: SIMI Ondansetron HCl (Ondansetron Hcl 4 Mg/2 Ml Vial) 4 mg IVPUSH Q8H PRN PRN Reason: Nausea and Vomiting Prednisone (Prednisone 10 Mg Tablet) 10 mg PO DAILY [facility] Last Admin: 02/08/23 07:28 Dose: 10 mg Documented By: JOSE Sodium Chloride (0.9 % Sodium Chloride Flush 3 Ml Syringe) 3 ml IVFLUSH QSHIFT [facility] Last Admin: 08/23/23 07:31 Dose: 3 ml Documented By: JOSE Tamsulosin HCl (Tamsulosin Hcl 0.4 Mg Capsule) 0.4 mg PO BEDTIME [facility] Last Admin: 02/07/23 21:12 Dose: 0.4 mg Documented By: SIMI Vitamin D (Cholecalciferol (Vitamin D3) 25 Mcg Tablet) 50 mcg PO BID [facility] Last Admin: 02/08/23 07:46 Dose: 50 mcg Documented By: JOSE Labs 02/08/23 06:55 02/08/23 06:55 Labs: Laboratory Results - last 24 hr 02/07/23 02/07/23 02/08/23 09:37 20:00 06:55 MCV 89.8 MCH 28.9 MCHC 32.2 RDW 15.3 Plt Count 137 L MPV 9.2 L Immature Gran % (Auto) 0.3 Neut % (Auto) 51.2 Lymph % (Auto) 34.5 [place] % (Auto) 12.1 H Eos % (Auto) 1.4 Baso % (Auto) 0.5 Lymph # (Auto) 2.6 [place] # (Auto) 0.9 Eos # (Auto) 0.1 Baso # (Auto) 0.0 Abs Immat Gran (auto) 0.02 Absolute Neuts (auto) 3.9 Absolute Nucleated RBC 0.000 Nucleated RBC % (auto) 0.0 Smear Tech's Comments VERIFIED Anion Gap Estim Creat Clear Calc Estimated GFR POC Glucose 101 Random Glucose Calcium Triglycerides 81 Cholesterol 118 LDL Cholesterol, Calc 54 HDL Cholesterol 48 02/08/23 02/08/23 02/08/23 06:55 07:00 10:48 MCV MCH MCHC RDW Plt Count MPV Immature Gran % (Auto) Neut % (Auto) Lymph % (Auto) [place] % (Auto) Eos % (Auto) Baso % (Auto) Lymph # (Auto) [place] # (Auto) Eos # (Auto) Baso # (Auto) Abs Immat Gran (auto) Absolute Neuts (auto) Absolute Nucleated RBC Nucleated RBC % (auto) Smear Tech's Comments Anion Gap 13 Estim Creat Clear Calc 64.3 Estimated GFR > 60 POC Glucose 143 H 229 H Random Glucose 141 H Calcium 9.7 Triglycerides Cholesterol LDL Cholesterol, Calc HDL Cholesterol Assessment and Plan (1) Symptomatic stenosis of left carotid artery: Status: Acute (2) Non-rheumatic aortic stenosis: Status: Acute (3) Transient ischemic attack (TIA): Status: Acute Plan 82-year-old male with history of hypertension, insulin-dependent type 2 diabetes, hyperlipidemia, carpal tunnel syndrome, coronary artery disease, aortic stenosis, rheumatoid arthritis, history lumbar fusion, and restless legs syndrome who is a former smoker quit greater than 40 years ago admitted for acute TIA vs CVA with significant carotid stenosis. # TIA weakness resolved Head CT negative for acute intracranial abnormality. CTA head/neck showing significant left-sided carotid stenosis with narrowing at the base MRI negative for acute stroke Continue ASA 81 mg daily atorvastatin to 80 mg lipid profile neurology consult, vascular eval needed Pending echocardiogram PT/OT consult # Symptomatic left carotid artery stenosis 75% on left, 50% on right CTA head/neck as above initiate aspirin. Hold on Plavix for now vascular surgery consult, will require left carotid endarterectomy as an inpatient. for cardiology clearance for surgery Cardiology consult Pending Echo # insulin-dependent type 2 diabetes point of care glucose diabetic diet uses own insulin pump # rheumatoid arthritis Continue home meds # hypertension hold antihypertensives in the setting of TIA and low BP DVT prophylaxis Heparin Patient requires inpatient overnight stay for management of acute TIA with significant carotid stenosis possibly requiring intervention as well as expert consultation Time Spent With Patient Time: Total time managing care of this patient today ____ minutes. Quality Stroke Does the patient have a stroke diagnosis?: Yes Reason for No Anti-thrombotic by Day Two: Drug treatment not indicated VTE Prior VTE?: No VTE Risk Level:: Medical - moderate - high VTE Device Contraindication: Treatment Not Indicated VTE Drug Contraindication: N/A - Med Ordered
[2023-02-08 15:38] VITALS: BP 141/78; PULSE 70; RESP 18; TEMP 36.2; O2SAT 96
[2023-02-08 16:30] LABS: Glucose, Whole Blood 123 mg/dL (60-115)
[2023-02-08 19:12] VITALS: BP 123/65; PULSE 65; RESP 18; TEMP 36.2; O2SAT 97
[2023-02-08 20:52] LABS: Glucose, Whole Blood 108 mg/dL (60-115)
[2023-02-08] MEDS: Tamsulosin HCL 0.4 MG CAPSULE PO (21:12)
[2023-02-08 23:47] VITALS: BP 124/75; PULSE 69; RESP 18; TEMP 36.4; O2SAT 95
[2023-02-09] MEDS: Acetaminophen 325 MG TABLET 650 MG PO (00:14)
[2023-02-09 04:00] VITALS: BP 127/67; PULSE 78; RESP 18; TEMP 36.3; O2SAT 94
[2023-02-09] MEDS: Heparin Sodium,Porcine 5,000 UNIT/ML VIAL 5000 UNIT SUBCUT ×2 (04:00→18:20)
[2023-02-09] MEDS: Omeprazole 20 MG CAPSULE.DR PO ×2 (06:17→17:01)
[2023-02-09 07:29] VITALS: BP 136/74; PULSE 71; RESP 17; TEMP 36.4; O2SAT 95
[2023-02-09 07:34] LABS: Glucose, Whole Blood 162 mg/dL (60-115)
[2023-02-09 07:47] LABS: Hematocrit 39.6 % (42.0-52.0); Hemoglobin 12.7 g/dl (14.0-18.0); Mean Corpuscular HGB Conc 32.1 g/dl (31.0-36.0); Mean Corpuscular Hemoglobin 28.3 pg (27.0-33.0); Mean Corpuscular Volume 88.4 fL (80.0-98.0); Mean Platelet Volume 9.6 fL (9.4-12.4); Platelet Count 151 X10*3/uL (160-400); Red Blood Count 4.48 X10*6/uL (4.60-5.80); Red Cell Distribution Width 15.3 % (11.0-16.0); White Blood Count 7.6 X10*3/uL (4.8-10.8)
[2023-02-09] MEDS: Cyclobenzaprine HCl 10 MG TABLET PO (07:51)
[2023-02-09] MEDS: Cholecalciferol (Vitamin D3) 25 MCG TABLET 50 MCG PO ×2 (07:52→20:55)
[2023-02-09] MEDS: predniSONE 10 MG TABLET PO (07:52)
[2023-02-09] MEDS: Multivitamin TABLET 1 TAB PO (07:52)
[2023-02-09 07:54] LABS: Anion Gap 12 (12-20); Blood Urea Nitrogen 22 mg/dL (9-16); Carbon Dioxide 29 mmol/L (22-29); Chloride 103 mmol/L (96-108); Creatinine Clr Calc Pharmacy 52.3; Estimated Glomerular Filt Rate > 60; Glucose Random 157 mg/dL (60-115); Potassium 4.5 mmol/L (3.3-5.1); Sodium 139 mmol/L (135-145)
[2023-02-09] MEDS: 0.9 % Sodium Chloride Flush 3 ML SYRINGE IVFLUSH ×3 (07:55→20:55)
[2023-02-09] MEDS: Hydroxychloroquine Sulfate 200 MG TABLET PO ×2 (07:55→20:55)
[2023-02-09] MEDS: Atorvastatin Calcium 80 MG TABLET PO (07:55)
[2023-02-09] MEDS: Escitalopram Oxalate 10 MG TABLET PO (07:55)
[2023-02-09] MEDS: Aspirin Enteric Coated 81 MG TABLET.DR PO (07:55)
[2023-02-09] MEDS: Gabapentin 600 MG TABLET PO ×3 (07:55→20:55)
[2023-02-09] MEDS: Subcutaneous Insulin Pump 1 EACH SUBCUT ×4 (07:59→20:57)
--- NOTE | 2023-02-09 09:40 | HO.VASCPN ---
Subjective Subjective Date of Service: 02/09/23 Patient reports: no new complaints and feels better Interval history: Pleasant 82-year-old gentleman for carotid follow-up. The concern here was that he had symptomatic left carotid stenosis. He is currently undergoing cardiac workup. Does have a significant cardiac history as well. He is actually for stress testing today. Physical Exam Vital Signs: Vital Signs: Last Vital Signs Temp 97.6 F 02/09/23 07:29 Pulse 71 02/09/23 07:29 Resp 17 02/09/23 07:29 BP 136/74 02/09/23 07:29 Pulse Ox 95 02/09/23 07:29 O2 Del Method Room Air 02/09/23 07:29 BMI result Body Mass Index 29.1 Const: General: cooperative, healthy appearing and no acute distress Orientation/consciousness: oriented to person, oriented to place and oriented to time HEENT: Head: Yes normal to inspection Neck: Carotids: no bruits Chest: Chest palpation & inspection: normal inspection of the chest Resp: Effort & Inspection: normal respiratory effort and able to speak in complete sentences Auscultation: clear to auscultation bilaterally Cardio: Rate: regular rate Heart sounds: S1 normal heart sound present and S2 normal heart sound present GI: Inspection: Yes normal to inspection Skin: General skin exam: no rashes or lesions noted Wounds: no wounds Neuro: General: oriented to person, oriented to place, oriented to time and CN's II-XI intact bilaterally Extrem: General: Yes normal to inspection, Yes full ROM and Yes no clubbing, cyanosis or edema Psych: Appearance: grossly normal and well kempt Speech and movement: Normal speech and movement present Affect: normal affect Progress Note: A&P Assessment and plan (1) Symptomatic stenosis of left carotid artery: Status: Acute Assessment and Plan: In short patient had left carotid stenosis with TIA. The concern here is his cardiac status he is undergoing risk stratification in may potentially even need a cardiac catheterization. If high risk may need to be sent to a tertiary care center. Will continue to monitor his status with the cardiology team. Thank you for allowing us to assist in his care. If there are any questions or concerns please do not hesitate to contact us. Time Spent With Patient Time: Total time managing care of this patient today ____ minutes. Procedures Date of Service Date of Service: 02/09/23 Quality Stroke Does the patient have a stroke diagnosis?: Yes Reason for No Anti-thrombotic by Day Two: Drug treatment not indicated VTE Prior VTE?: No VTE Risk Level:: Medical - moderate - high VTE Device Contraindication: Treatment Not Indicated VTE Drug Contraindication: N/A - Med Ordered
--- NOTE | 2023-02-09 11:04 | P.PNIM_ITS ---
Subjective Subjective Date of Service: 02/09/23 Interval History: Seen and evaluated this morning reporting no weakness or numbness Went for Stress test this morning Pending eval for carotid endarterectomy No reported weakness or AMS overnight Review of Systems Review of Systems: Yes all other systems are reviewed and are negative Physical Exam Vital Signs: Vital Signs: Last Vital Signs Temp 97.6 F 02/09/23 07:29 Pulse 71 02/09/23 07:29 Resp 17 02/09/23 07:29 BP 136/74 02/09/23 07:29 Pulse Ox 95 02/09/23 07:29 O2 Del Method Room Air 02/09/23 07:29 BMI result Body Mass Index 29.1 Const: Other: Constitutional : Awake, interactive, not in distress Neck : Normal inspection, Supple Cardiovascular : RRR, no JVP, no lower extremity edema Respiratory : good bilateral air entry, no crackles, wheezes or rhonchi Gastrointestinal: soft, lax, Normal bowel sounds, Non tender Skin : Warm, Dry Neurological : Alert & oriented x3, No focal deficit , CN 2-12 within normal, no significant sensory difference in RU and RL extremities for superficial touch Objective Data Active Medications Acetaminophen (Acetaminophen 325 Mg Tablet) 650 mg PO Q6H PRN PRN Reason: Pain, Mild (Pain Scale 1-3) Last Admin: 02/09/23 00:14 Dose: 650 mg Documented By: ROM Aspirin (Aspirin Enteric Coated 81 Mg Tablet.) 81 mg PO DAILY [facility] Last Admin: 02/09/23 07:55 Dose: 81 mg Documented By: JONAS Atorvastatin Calcium (Atorvastatin Calcium 80 Mg Tablet) 80 mg PO DAILY [facility] Last Admin: 02/09/23 07:55 Dose: 80 mg Documented By: JONAS Calcium Carbonate (Calcium Carbonate 500 Mg Tablet) 500 mg PO BID [facility] Last Admin: 02/09/23 07:52 Dose: 500 mg Documented By: JONAS Cyclobenzaprine HCl (Cyclobenzaprine Hcl 10 Mg Tablet) 10 mg PO DAILY [facility] Last Admin: 02/09/23 07:51 Dose: 10 mg Documented By: JONAS Dextrose (Dextrose 50 % 25 Gm/50 Ml Syringe) 25 gm IVPUSH Q15M PRN; Protocol PRN Reason: per Hypoglycemia Standing Ord. Docusate Sodium (Docusate Sodium 100 Mg Capsule) 100 mg PO DAILY PRN PRN Reason: Constipation Escitalopram Oxalate (Escitalopram Oxalate 10 Mg Tablet) 10 mg PO DAILY [facility] Last Admin: 02/09/23 07:55 Dose: 10 mg Documented By: JONAS Gabapentin (Gabapentin 600 Mg Tablet) 600 mg PO TID [facility] Last Admin: 02/09/23 07:55 Dose: 600 mg Documented By: JONAS Glucose (Glucose Gel 15 Gm Gel..Gram.) 15 gm PO Q15M PRN; Protocol PRN Reason: per Hypoglycemia Standing Ord. Heparin Sodium (Porcine) (Heparin Sodium,Porcine 5,000 Unit/Ml Vial) 5,000 unit SUBCUT Q12H [facility] Last Admin: 02/09/23 04:00 Dose: 5,000 unit Documented By: MAGGY Hydroxychloroquine Sulfate (Hydroxychloroquine Sulfate 200 Mg Tablet) 200 mg PO BID [facility] Last Admin: 02/09/23 07:55 Dose: 200 mg Documented By: JONAS Insulin Pump (Subcutaneous Insulin Pump) 1 each SUBCUT QIDACHS [facility]; Protocol Last Admin: 02/09/23 07:59 Dose: 1 each Documented By: JONAS Comments: patient own insulin pump, no barcode to scan Multivitamins/Vitamin C (Multivitamin Tablet) 1 tab PO DAILY [facility] Last Admin: 02/09/23 07:52 Dose: 1 tab Documented By: JONAS Non-Formulary Medication (Etanercept [Enbrel]) 50 mg SUBCUT HERNANDEZ@0900 [facility] Non-Formulary Medication (Pilocarpine Hcl) 5 mg PO BID [facility] Last Admin: 02/09/23 07:56 Dose: 5 mg Documented By: JONAS Omeprazole (Omeprazole 20 Mg Capsule.) 20 mg PO BID@0630,1630 [facility] Last Admin: 02/09/23 06:17 Dose: 20 mg Documented By: MAGGY Ondansetron HCl (Ondansetron Hcl 4 Mg/2 Ml Vial) 4 mg IVPUSH Q8H PRN PRN Reason: Nausea and Vomiting Prednisone (Prednisone 10 Mg Tablet) 10 mg PO DAILY [facility] Last Admin: 02/09/23 07:52 Dose: 10 mg Documented By: JONAS Sodium Chloride (0.9 % Sodium Chloride Flush 3 Ml Syringe) 3 ml IVFLUSH QSHIFT [facility] Last Admin: 02/09/23 07:55 Dose: 3 ml Documented By: JONAS Tamsulosin HCl (Tamsulosin Hcl 0.4 Mg Capsule) 0.4 mg PO BEDTIME [facility] Last Admin: 02/08/23 21:12 Dose: 0.4 mg Documented By: MAGGY Vitamin D (Cholecalciferol (Vitamin D3) 25 Mcg Tablet) 50 mcg PO BID [facility] Last Admin: 02/09/23 07:52 Dose: 50 mcg Documented By: JONAS Labs 02/09/23 06:31 02/09/23 06:31 Labs: Laboratory Results - last 24 hr 02/08/23 02/08/23 02/08/23 10:48 16:25 20:42 MCV MCH MCHC RDW Plt Count MPV Absolute Nucleated RBC Nucleated RBC % (auto) Anion Gap Estim Creat Clear Calc Estimated GFR POC Glucose 229 H 123 H 108 Random Glucose Calcium 02/09/23 02/09/23 02/09/23 06:31 06:31 07:28 MCV 88.4 MCH 28.3 MCHC 32.1 RDW 15.3 Plt Count 151 L MPV 9.6 Absolute Nucleated RBC 0.000 Nucleated RBC % (auto) 0.0 Anion Gap 12 Estim Creat Clear Calc 52.3 Estimated GFR > 60 POC Glucose 162 H Random Glucose 157 H Calcium 10.0 Assessment and Plan (1) Symptomatic stenosis of left carotid artery: Status: Acute (2) CAD (coronary artery disease): Status: Acute (3) Transient ischemic attack (TIA): Status: Acute Plan 82-year-old male with history of hypertension, insulin-dependent type 2 diabetes, hyperlipidemia, carpal tunnel syndrome, coronary artery disease, aortic stenosis, rheumatoid arthritis, history lumbar fusion, and restless legs syndrome who is a former smoker quit greater than 40 years ago admitted for acute TIA vs CVA with significant carotid stenosis. # TIA weakness\numbness resolved Head CT negative for acute intracranial abnormality. CTA head/neck showing significant left-sided carotid stenosis with narrowing at the base MRI negative for acute stroke Continue ASA 81 mg daily atorvastatin to 80 mg Echocardiogram showing mod , EF 64%. PT/OT consult # Symptomatic left carotid artery stenosis 75% on left, 50% on right CTA head/neck as above initiate aspirin. Hold on Plavix for now vascular surgery consult, will require left carotid endarterectomy as an inpatient. for cardiology clearance for surgery Cardiology consult, to do stress test # insulin-dependent type 2 diabetes point of care glucose diabetic diet uses own insulin pump # rheumatoid arthritis Continue home meds # hypertension hold antihypertensives in the setting of TIA and low BP DVT prophylaxis Heparin Patient requires inpatient overnight stay for management of acute TIA with significant carotid stenosis possibly requiring intervention or transfer to tertiary center Time Spent With Patient Time: Total time managing care of this patient today ____ minutes. Quality Stroke Does the patient have a stroke diagnosis?: Yes Reason for No Anti-thrombotic by Day Two: Drug treatment not indicated VTE Prior VTE?: No VTE Risk Level:: Medical - moderate - high VTE Device Contraindication: Treatment Not Indicated VTE Drug Contraindication: N/A - Med Ordered
[2023-02-09 11:41] VITALS: BP 125/67; PULSE 93; RESP 17; TEMP 36.4; O2SAT 93
[2023-02-09 11:46] LABS: Glucose, Whole Blood 158 mg/dL (60-115)
--- NOTE | 2023-02-09 11:58 | MHC.CM.PN ---
EMR REVIEWED, PLAN FOR INPT CAROTID ENDARTERECTOMY PRIOR TO D/C, PREFERRED FACILITY [facility] FOLLOWING AND WILL NEED UPDATED PT/OT NOTES PRIOR TO ACCEPTING, CM WILL CONT TO FOLLOW D/C NEEDS.
[2023-02-09 14:23] VITALS: PULSE 88; O2SAT 93
[2023-02-09 15:26] LABS: Glucose, Whole Blood 162 mg/dL (60-115)
[2023-02-09 16:00] VITALS: BP 159/75; PULSE 73; RESP 17; TEMP 36.7; O2SAT 92
[2023-02-09 19:16] VITALS: BP 135/67; PULSE 70; RESP 20; TEMP 37.1; O2SAT 95
[2023-02-09 20:25] LABS: Glucose, Whole Blood 191 mg/dL (60-115)
[2023-02-09] MEDS: Tamsulosin HCL 0.4 MG CAPSULE PO (20:55)
[2023-02-10] VITALS: BP 124/65; PULSE 67; RESP 20; TEMP 36.3; O2SAT 97
[2023-02-10] MEDS: Acetaminophen 325 MG TABLET 650 MG PO (02:19)
[2023-02-10] MEDS: Heparin Sodium,Porcine 5,000 UNIT/ML VIAL 5000 UNIT SUBCUT (03:42)
[2023-02-10 04:00] VITALS: BP 133/63; PULSE 72; RESP 20; TEMP 36.3; O2SAT 97
[2023-02-10] MEDS: Omeprazole 20 MG CAPSULE.DR PO (05:51)
[2023-02-10 08:00] VITALS: BP 138/76; PULSE 81; RESP 20; TEMP 36.6; O2SAT 94
[2023-02-10 08:09] LABS: Glucose, Whole Blood 166 mg/dL (60-115)
[2023-02-10] MEDS: 0.9 % Sodium Chloride Flush 3 ML SYRINGE IVFLUSH (09:11)
[2023-02-10] MEDS: Aspirin Enteric Coated 81 MG TABLET.DR PO (09:13)
[2023-02-10] MEDS: predniSONE 10 MG TABLET PO (09:13)
[2023-02-10] MEDS: Cholecalciferol (Vitamin D3) 25 MCG TABLET 50 MCG PO (09:13)
[2023-02-10] MEDS: Escitalopram Oxalate 10 MG TABLET PO (09:13)
[2023-02-10] MEDS: Atorvastatin Calcium 80 MG TABLET PO (09:13)
[2023-02-10] MEDS: Hydroxychloroquine Sulfate 200 MG TABLET PO (09:13)
[2023-02-10] MEDS: Multivitamin TABLET 1 TAB PO (09:14)
[2023-02-10] MEDS: Cyclobenzaprine HCl 10 MG TABLET PO (09:14)
[2023-02-10] MEDS: Gabapentin 600 MG TABLET PO (09:14)
[2023-02-10] MEDS: Subcutaneous Insulin Pump 1 EACH SUBCUT ×2 (09:16→12:11)
[2023-02-10 09:41] VITALS: BP 138/76; PULSE 81; O2SAT 94
--- NOTE | 2023-02-10 09:44 | PM.PNCARD ---
Subjective Subjective Date of Service: 02/10/23 Interval history: Patient states that he feels okay. Does not have any active cardiac complaints. Review of Systems Review of Systems Yes all other systems are reviewed and are negative Constitutional: Reports as per HPI and Reports no additional constitutional complaints Eyes: Reports as per HPI and Denies no additional eye complaints Denies system reviewed and no additional complaints, except as documented and Reports as per HPI Cardiovascular: Reports as per HPI, Reports no additional cardiovascular complaints, Denies acrocyanosis, Denies cool extremities, Denies chest pain, Denies leg edema, Denies lightheadedness, Denies palpitations and Denies dyspnea Respiratory: Reports as per HPI, Denies no additional respiratory complaints and Denies dyspnea Gastrointestinal: Reports as per HPI and Denies no additional gastrointestinal complaints Genitourinary: Reports no additional male genitourinary complaints and Reports as per HPI Musculoskeletal: Reports no additional musculoskeletal complaints and Reports as per HPI Skin/Breast: Reports system reviewed and no additional complaints, except as docu Reports system reviewed and no additional complaints, except as documented and Reports as per HPI Psychiatric: Reports no additional psychiatric complaints and Reports as per HPI Endocrine: Reports no additional endocrine complaints, Reports as per HPI and Denies palpitations Hematologic/Lymphatic: Reports no additional hematologic/lymphatic complaints and Reports as per HPI Allergic/Immunologic: Reports no additional allergic/immunologic complaints and Reports as per HPI Physical Exam Vital Signs: Last Vital Signs Temp 98 F 02/10/23 08:00 Pulse 81 02/10/23 08:00 Resp 20 02/10/23 08:00 BP 138/76 02/10/23 08:00 Pulse Ox 94 02/10/23 08:00 O2 Del Method Room Air 02/10/23 08:00 BMI result Body Mass Index 29.1 Const General: comfortable and no acute distress Orientation/consciousness: patient oriented x3 HEENT Other: Unremarkable Head: Yes normal to inspection Neck Neck: Yes normal visual inspection Chest Chest palpation & inspection: normal inspection of the chest Resp Auscultation: clear to auscultation bilaterally Cardio Palpation: normal PMI Heart sounds: S1 normal heart sound present, S2 normal heart sound present, no gallops, Murmur heart sound present systolic III/ and no rubs GI Palpation (GI): Soft to palpation Back/Spine/Pelvis Other: unremarkable Skin General skin exam: no rashes or lesions noted Neuro General: patient oriented x3 Extrem General: Yes normal to inspection Psych Mental Status: mental status grossly normal Objective Labs and Meds 02/09/23 06:31 02/09/23 06:31 Lab results: Laboratory Results - last 24 hr 02/09/23 02/09/23 02/09/23 11:40 15:23 20:05 POC Glucose 158 H 162 H 191 H 02/10/23 07:55 POC Glucose 166 H Imaging Radiologist's impression: Impressions Myocardial Perfusion Scan Nuc Med 02/09/23 09:20 Impression: 1. Myocardial perfusion imaging study shows likely normal myocardial perfusion 2. Gated LVEF is 70% 3. Transient ischemic dilatation not present EKG is nondiagnostic for ischemia Progress Note: A&P Assessment and plan (1) Preoperative cardiovascular examination: Status: Acute (2) Carotid artery stenosis: Status: Acute (3) Non-rheumatic aortic stenosis: Status: Acute (4) CAD (coronary artery disease): Status: Acute Plan High sensitivity troponins are within range. Brain MRI shows no acute infarct or other acute intracranial abnormality. 70% stenosis of the left internal carotid artery and 20% in the right internal carotid artery. Moderate to high-grade focal narrowing at the origins of both vertebral arteries. Echocardiogram with LVEF of 64%. Moderate aortic valve stenosis. Moderate mitral annular calcification/possibly moderate mitral stenosis. Myocardial perfusion imaging study with likely normal perfusion. Old records also reviewed. Exercise stress echocardiogram from 2020 showed no significant abnormalities at 7 Mets. Office notes also reviewed. 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 50% lesion the diagonal that time. Overall, he does have stenotic lesions in the aortic valve and possibly mitral valve(mitral difficult to assess due to calcification). There is increased operative risk because of this. It would be considered at least intermediate; he also has multiple other comorbidities which include advanced age, frailty, long-term immunosuppression/steroid use due to rheumatoid arthritis among others. If there is surgical indication for the carotid stenosis and the benefits overweigh the risks, may proceed as planned. Cardiac risk discussed with patient in detail. He understands very well. Discussed with Dr. Ho. Time Spent With Patient Time: Total time managing care of this patient today ____ minutes. Progress Note: Quality Stroke Does the patient have a stroke diagnosis?: Yes Reason for No Anti-thrombotic by Day Two: Drug treatment not indicated Procedures Date of Service Date of Service: 02/10/23
--- NOTE | 2023-02-10 10:38 | MHC.CM.PN ---
IMM 02/08/23 Patient is discharged to home today self care. He will have the Endarterectomy, scheduled next week. DP home self care. patients son will provide transportation home.
--- NOTE | 2023-02-10 10:44 | P.PNVS_ITS ---
Subjective Subjective Date of Service: 02/10/23 Patient reports: no new complaints and feels better Interval history: Pleasant 82-year-old gentleman presents for follow-up evaluation regarding symptomatic left carotid stenosis. Had to recap the vent originally began as he developed some right leg weakness had a fall and actually developed an abrasion on the arm. He was subsequently admitted upon workup he was noted to have left- sided carotid stenosis of about 75% on CT angiogram. Upon discussion with Neurology the did feel this was a true TIA and the carotid was the source of the issues. He has undergone cardiac risk stratification. He is now for follow-up. Physical Exam Vital Signs: Vital Signs: Last Vital Signs Temp 98 F 02/10/23 08:00 Pulse 81 02/10/23 09:41 Resp 20 02/10/23 08:00 BP 138/76 02/10/23 09:41 Pulse Ox 94 02/10/23 09:41 O2 Del Method Room Air 02/10/23 08:00 BMI result Body Mass Index 29.1 Const: General: cooperative, healthy appearing and no acute distress Orientation/consciousness: oriented to person, oriented to place and oriented to time HEENT: Head: Yes normal to inspection Neck: Carotids: no bruits Chest: Chest palpation & inspection: normal inspection of the chest Resp: Effort & Inspection: normal respiratory effort and able to speak in complete sentences Auscultation: clear to auscultation bilaterally Cardio: Rate: regular rate Heart sounds: S1 normal heart sound present and S2 normal heart sound present GI: Inspection: Yes normal to inspection Skin: General skin exam: no rashes or lesions noted Wounds: no wounds Neuro: General: oriented to person, oriented to place, oriented to time and CN's II-XI intact bilaterally Extrem: General: Yes normal to inspection, Yes full ROM and Yes no clubbing, cyanosis or edema Psych: Appearance: grossly normal and well kempt Speech and movement: Normal speech and movement present Affect: normal affect Progress Note: A&P Assessment and plan (1) Symptomatic stenosis of left carotid artery: Status: Acute Assessment and Plan: In short patient has high-grade left carotid stenosis. He will require left carotid endarterectomy. Risks benefits complications of the operation including but not limited to bleeding infection stroke and were discussed in detail with the patient. He understood and consented. The patient has elected to go home as opposed to waiting in the hospital prior to surgery. As it is symptomatic carotid stenosis we will schedule him as soon as possible. Thank you for allowing us to assist in his care. If there are any questions or concerns please do not hesitate to contact us. Time Spent With Patient Time: Total time managing care of this patient today ____ minutes. Procedures Date of Service Date of Service: 02/10/23 Quality Stroke Does the patient have a stroke diagnosis?: Yes Reason for No Anti-thrombotic by Day Two: Drug treatment not indicated VTE Prior VTE?: No VTE Risk Level:: Medical - moderate - high VTE Device Contraindication: Treatment Not Indicated VTE Drug Contraindication: N/A - Med Ordered
--- NOTE | 2023-02-10 10:54 | PM.DS ---
DS: Providers Provider Date of Service: 02/10/23 Date of admission: 02/07/23 14:32 Primary care physician: iGsselle Gilman MD Consults: 02/07/23 14:38 Consult to Neurology Routine Consulting Provider: Jacob Rios Reason for consultation: tia 02/07/23 14:40 Consult to Vascular Surgery Routine Consulting Provider: [facility] [place] Vascular Services Reason for consultation: carotid stenosis 02/08/23 09:47 Consult to Cardiology Routine Consulting Provider: [facility] [place] Cardiovascular Services Reason for consultation: TIA, Carotid stenosis, For risk stratification 02/08/23 13:10 Consult to Wound Care Routine Consulting Provider: [facility] [place] Wound Care Management Reason for consultation: open skin tear to R upper arm Has provider been notified: Yes DS: Diagnosis Discharge Diagnosis (1) Preoperative cardiovascular examination: Status: Acute (2) Carotid artery stenosis: Status: Acute (3) Non-rheumatic aortic stenosis: Status: Acute (4) CAD (coronary artery disease): Status: Acute (5) Symptomatic stenosis of left carotid artery: Status: Acute (6) Transient ischemic attack (TIA): Status: Acute DS: Summary Hospital Course Hospital Course: Admission note HPI 82-year-old male with history of hypertension, insulin-dependent type 2 diabetes, hyperlipidemia, carpal tunnel syndrome, coronary artery disease, aortic stenosis, rheumatoid arthritis, history lumbar fusion, and restless legs syndrome who is a former smoker quit greater than 40 years ago presented to the ED via EMS for evaluation of right lower extremity weakness.? He went to bed around 23:00 without any symptoms and woke up around 01:00 to use the bathroom and felt like his right lower extremity was rubbery and he was needing to use the wall for support to ambulate.? He then awoke again at 07:00 with significant weakness in the right lower extremity and fell to the right side upon standing sustaining a skin tear to the right forearm but did not hit his head or lose any consciousness.? He denies having any facial droop, slurred speech, dysphagia, visual changes, lightheadedness, upper extremity weakness or paresthesias, weakness in the left lower extremity or paresthesias in the lower extremities. Denies prior history TIA/CVA. He is also reporting right hip pain. On arrival, patient moderately hypertensive to 150/59, vitals otherwise within normal limits.? Hematology studies are unremarkable.? Renal function normal, electrolyte levels normal.? Troponin 30.9, repeat pending.? Urinalysis unremarkable.? Head CT negative for any acute intracranial pathology CTA of the head/neck showing heavy calcified atheromatous plaque involving both carotid bifurcations.? There is 75% stenosis of the left internal carotid artery at its origin 25% stenosis of the right internal carotid artery at its origin as well as mild to moderate high-grade focal narrowing at the origins of both vertebral arteries which are otherwise patent.? No LVO.? EKG showed normal sinus rhythm, rate 66 with LVH and nonspecific ST abnormality. Hospital course # TIA as presented with right sided weakness\numbness that was completely resolved during hospital stay with no recurrence. Head CT negative for acute intracranial abnormality.? CTA head/neck showing significant left-sided carotid stenosis with narrowing at the base. MRI negative for acute stroke. Evaluated by neurologist who recommended ASA 81 mg daily and to increase atorvastatin to 80 mg. Echocardiogram showing mod , EF 64%. Had PT/OT evaluation with recommendations for acute rehab but he prefered to go back home with family support until his surgical intervention date. # Symptomatic left carotid artery stenosis Images showed 75% on left, 50% on right. Evaluated by vascular surgery who recommended left carotid endarterectomy as outpatient next week as he was evaluated by cardiology and cleared for surgery after normal stress test. Continue aspirin daily Increase Atorvastatin to 80 mg To follow with dr Dias as scheduled for surgery. Time Spent with Patient Time attestation: Total time managing care of this patient today ____ minutes. Discharge coordination time: Greater than 30 minutes Quality: Safe Use of Opioids Does Pt have an Active Cancer Diagnosis on the Problem List?: No Quality: Stroke Does the patient have a stroke diagnosis?: No Physical Exam Vital Signs: Vital Signs: Last Vital Signs Temp 98 F 02/10/23 08:00 Pulse 81 02/10/23 09:41 Resp 20 02/10/23 08:00 BP 138/76 02/10/23 09:41 Pulse Ox 94 02/10/23 09:41 O2 Del Method Room Air 02/10/23 08:00 BMI result Body Mass Index 29.1 Const: Other: Constitutional : Awake, interactive, not in distress Neck : Normal inspection, Supple Cardiovascular : RRR, no JVP, no lower extremity edema Respiratory : good bilateral air entry, no crackles, wheezes or rhonchi Gastrointestinal: soft, lax, Normal bowel sounds, Non tender Skin : Warm, Dry Neurological : Alert & oriented x3, No focal deficit , CN 2-12 within normal, no significant sensory difference in RU and RL extremities for superficial touch DS: Data Data Completed and Pending Labs on day of discharge: Laboratory Results - last 24 hr 02/09/23 02/09/23 02/09/23 11:40 15:23 20:05 POC Glucose 158 H 162 H 191 H 02/10/23 07:55 POC Glucose 166 H Imaging MRI - head: Radiologist's impression: ITS Impressions Head CT 02/07/23 10:00 IMPRESSION: No acute intracranial pathology. Head/Neck CTA 02/07/23 12:07 IMPRESSION: Heavily calcified atheromatous plaque involves both carotid bifurcations. There is 75% stenosis of the left internal carotid artery at its origin and 25% stenosis of the right internal carotid artery at its origin. Moderate to high-grade focal narrowing at the origins of both vertebral arteries which are otherwise patent. No intracranial large vessel occlusion. No evidence of acute territorial infarct. No abnormal intracranial mass or enhancement. Hip/Pelvis X-Ray 02/07/23 15:28 IMPRESSION: 1. Chronic appearing asymmetric deformity of the right frontal neck without definitive acute fracture. Correlate with physical exam and patient history. 2. Mild bilateral hip osteoarthritis and generalized osteopenia. Brain MRI 02/07/23 18:39 IMPRESSION: No acute infarct or other acute intracranial abnormality. Elbow X-Ray 02/07/23 20:17 IMPRESSION: 1. No acute fractures or subluxation. 2. Moderate multi compartmental degenerative osteoarthritis. 3. Soft tissue thickening adjacent to the olecranon process, correlate for olecranon bursitis. Myocardial Perfusion Scan Nuc Med 02/09/23 09:20 Impression: 1. Myocardial perfusion imaging study shows likely normal myocardial perfusion 2. Gated LVEF is 70% 3. Transient ischemic dilatation not present EKG is nondiagnostic for ischemia Discharge Plan Discharge Anticipated Discharge Date/Time: 02/10/23 10:45 Patient Disposition: Home, Self-Care Discharge Diagnosis: Left carotid artery stenosis TIA Referrals: Gisselle Gilman MD [Primary Care Provider] - 1 Week Discharge Medications: New atorvastatin 80 mg Tablet 80 mg PO DAILY Qty: 90 0RF aspirin 81 mg Tablet,Delayed Release (Dr/Ec) 81 mg PO DAILY Qty: 90 0RF Continued omeprazole 20 mg capsule,delayed release(DR/EC) 20 mg PO BID 90 Days Qty: 180 3RF prednisone 10 mg tablet 10 mg PO DAILY Qty: 60 1RF pilocarpine HCl 5 mg tablet 5 mg PO BID Qty: 180 2RF hydroxychloroquine 200 mg tablet 200 mg PO DAILY Qty: 90 1RF Novolog U-100 Insulin aspart 80 units subcut (via wearable injectr) DAILY Rx Instructions: via TANDEM insulin pump gabapentin 600 mg tablet 600 mg PO TID calcium citrate 200 mg (950 mg) Tablet 800 mg PO BID Enbrel 50 mg/mL (1 mL) Syringe 50 mg SUBCUT HERNANDEZ@0900 citalopram 20 mg tablet 20 mg PO DAILY PreserVision AREDS [id number] capsule 1 cap PO BID tamsulosin 0.4 mg capsule 0.4 mg PO BEDTIME amlodipine 2.5 mg tablet 2.5 mg PO DAILY cyclobenzaprine 10 mg tablet 10 mg PO DAILY acetaminophen [Tylenol 8 Hour] 650 mg tablet extended release 650 mg PO Q8H PRN (Reason: Pain) cholecalciferol (vitamin D3) 50 mcg (2,000 unit) capsule 50 mcg PO BID Discontinued atorvastatin 40 mg tablet 40 mg PO BEDTIME Discharge Orders: Discharge Order (Routine); Ordered 02/10/23 Ordered By: Evelyn Ho Diet: Low salt diet Activity on Discharge: As tolerated Stand Alone Forms: Patient Portal Discharge page Care Plan Goals: Read below Health Concerns: Read below Plan of Treatment: Read below Assessment: Admitted for concerns of stroke. evaluated by neurologist as your symptoms resolved. Found to have an evidence of narrow left Carotid artery. evaluated by vascular surgeon dr Dias who will be doing surgical intervention to correct the narrowing as outpatient next week as you were cleared to do the surgery after normal stress test. Continue aspirin daily Increase Atorvastatin to 80 mg To follow with dr Dias as scheduled for surgery.
[2023-02-10 11:51] LABS: Glucose, Whole Blood 191 mg/dL (60-115)
[2023-02-10 12:00] VITALS: BP 130/64; PULSE 83; RESP 20; TEMP 36.6; O2SAT 95
--- NOTE | 2023-02-10 13:37 | PC.NURSE ---
Patient is alert and oriented x4 speech clear, face symmetric tongue midline. LI to command 5/5 sensation intact, +pp bilat no edema noted. LSCTA denies SOB or chest pain. BS+X4 abdomen soft non-tender denies nausea/vomiting tolerating diet. OOB with steady gait into chair. Discharged to home early afternoon. Home insulin returned to patient upon discharge
== END 2023-02-10 13:16 | disposition home or self-care (01) | DRG 68 ==
LOC: HO.ED 14:04 → HO.EDOVER 14:45 → HO.IMC 16:09
PROVIDERS: Admitting Provider Physician Assistant; Emergency Provider Emergency Medicine; PCP Internal Medicine; Visit Provider Student in an Organized Health Care Education/Training Program
DX: I65.22 Occlusion and stenosis of left carotid artery (principal); I25.10 Atherosclerotic heart disease of native coronary artery without angina pectoris; E78.5 Hyperlipidemia, unspecified; E11.9 Type 2 diabetes mellitus without complications; M06.9 Rheumatoid arthritis, unspecified; Z96.41 Presence of insulin pump (external) (internal); I35.0 Nonrheumatic aortic (valve) stenosis; E78.00 Pure hypercholesterolemia, unspecified; Z87.891 Personal history of nicotine dependence; Z98.1 Arthrodesis status; Z79.4 Long term (current) use of insulin; Z79.52 Long term (current) use of systemic steroids; Z79.82 Long term (current) use of aspirin; Z79.620 Long term (current) use of immunosuppressive biologic; Z79.899 Other long term (current) drug therapy
CPT/HCPCS: 36415; 70450; 70496; 70498; 70551; 73080; 73502; 78452; 80048; 80061; 81003; 82947; 84484; 85025; 85027; 93005; 93017; 93306; 97116; 97162; 97166; 97530; 99285; A9500; J0280; J1643; J2785; Q9957; Q9967

== ENCOUNTER 2023-02-07 14:32 | Outpatient (BNV) | payer MEDICARE, SELFPAY | END 2023-02-08 13:42 | PROVIDERS: Admitting Provider Physician Assistant; Emergency Provider Emergency Medicine; PCP Internal Medicine; Visit Provider Internal Medicine Cardiovascular Disease | DX: R94.31 Abnormal electrocardiogram [ECG] [EKG] (principal) | CPT/HCPCS: 78452; 93016; 93018 ==

== ENCOUNTER → 2023-02-07 14:32 | Outpatient (BNV) | payer MEDICARE, SELFPAY | PROVIDERS: Admitting Provider Physician Assistant; Emergency Provider Emergency Medicine; PCP Internal Medicine; Visit Provider Surgery Vascular Surgery | DX: I65.22 Occlusion and stenosis of left carotid artery (principal) | CPT/HCPCS: 99222; 99232 ==

== ENCOUNTER → 2023-02-07 14:32 | Outpatient (BNV) | payer MEDICARE, SELFPAY | PROVIDERS: Admitting Provider Physician Assistant; Emergency Provider Emergency Medicine; PCP Internal Medicine; Visit Provider Internal Medicine | DX: I65.29 Occlusion and stenosis of unspecified carotid artery (principal); I35.0 Nonrheumatic aortic (valve) stenosis; I25.10 Atherosclerotic heart disease of native coronary artery without angina pectoris; Z01.810 Encounter for preprocedural cardiovascular examination | CPT/HCPCS: 93306; 99223; 99232 ==

== ENCOUNTER → 2023-02-07 14:32 | Outpatient (BNV) | payer MEDICARE, SELFPAY | PROVIDERS: Admitting Provider Physician Assistant; Emergency Provider Emergency Medicine; PCP Internal Medicine; Visit Provider Physician Assistant | DX: I65.29 Occlusion and stenosis of unspecified carotid artery (principal); I35.0 Nonrheumatic aortic (valve) stenosis; I25.10 Atherosclerotic heart disease of native coronary artery without angina pectoris; I65.22 Occlusion and stenosis of left carotid artery; Z01.810 Encounter for preprocedural cardiovascular examination | CPT/HCPCS: 99223; 99232; 99239 ==

== ENCOUNTER 2023-02-15 06:12 | Inpatient (IN) | payer MEDICARE, SELFPAY ==
--- NOTE | 2023-02-14 09:07 | HO.ANESPROP2 ---
Documented by User: Alexandra Martinez NP 02/14/23 09:14 HPI - Anesthesia Eval Consult details Narrative: 82yo M for Left Carotid [place]arte[place] [facility]07-02[place]10[place]23 with TIA/RLE weakness Cardiac eval: Increased surgical risk. If there is surgical indication for the carotid stenosis and the benefits overweigh the risks, may proceed as planned. Cardiac risk discussed with patient in detail.? He understands very well. 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 (Acute) Mouth dryness (Acute) Gastritis (Acute) Anemia (Acute) Rheumatoid nodule of forearm (Acute) Internal bleeding hemorrhoids (Acute) Osteoporosis with pathological fracture of thoracic vertebra (Acute) Methotrexate, chcf, current use (Acute) Osteoarthritis of left knee (Acute) Multiple skin nodules (Acute) Past Medical History Medical History Aortic stenosis CAD (coronary artery disease) Carpal tunnel syndrome Diabetes Elevated cholesterol Former smoker HTN (hypertension) Insulin pump in place Rheumatoid arthritis Family History Family History Father Heart attack Heart disease Mother Pacemaker Cataracts, bilateral Sister Heart problem Heart valve replaced Arthritis Brother Heart attack Brother Rectal cancer Sister History of modified radical mastectomy of right breast Family history of problems with anesthesia: No Surgical History Surgical History H/O colonoscopy History of cholecystectomy History of hand surgery History of shoulder surgery Hx of cardiac catheterization Hx of carpal tunnel repair Hx of hemorrhoidectomy Hx of lumbar discectomy History of Problems with Anesthesia: No Social History Social History Household Members: None Housing: House Are you a primary primary care pediatrician to a significant other at home: No Do you presently have visiting nurse or other home services: No Alcohol intake: former Patient Tobacco Use Status: Former Tobacco user Quit Date: 1964 Tobacco use type: Cigarette Years Smoked: 5 YEARS Use of substances other than those prescribed or required for medical reasons: No Are you DNR?: No Advance Directives: Yes Advance Directives on File: Yes Advance Directives Date on File: 02/07/23 service: Yes Current occupational status: employed Current occupation: [employer] Allergies Allergy/AdvReac Type Severity Reaction Status Date / Time Penicillins Allergy Severe ITCHING-SEV Verified 02/15/23 06:13 ERE piperacillin [From Zosyn] Allergy Mild JAUNDICE Verified 02/07/23 09:30 tazobactam [From Zosyn] Allergy Mild JAUNDICE Verified 02/07/23 09:30 Home Medications Medication Instructions Recorded Confirmed Last Taken Type Novolog U-100 Insulin aspart 80 units subcut (via wearable 06/01/20 02/15/23 02/14/23 History injectr) DAILY tamsulosin 0.4 mg capsule 0.4 mg PO BEDTIME 06/24/22 02/15/23 02/14/23 History vitamins A,C,O-yqvc-aixgbk 4,296 1 cap PO BID 06/24/22 02/15/23 02/14/23 History mcg-226 mg-90 mg capsule (PreserVision AREDS) acetaminophen 650 mg 650 mg PO Q8H PRN Pain 09/06/22 02/15/23 02/14/23 History tablet,extended release (Tylenol 8 Hour) amlodipine 2.5 mg tablet 2.5 mg PO DAILY 09/06/22 02/15/23 02/14/23 History citalopram 20 mg tablet 20 mg PO DAILY 09/06/22 02/15/23 02/14/23 History cyclobenzaprine 10 mg tablet 10 mg PO DAILY 09/06/22 02/15/23 02/14/23 History gabapentin 600 mg tablet 600 mg PO TID 09/06/22 02/15/23 02/14/23 History cholecalciferol (vitamin D3) 50 50 mcg PO BID 11/21/22 02/15/23 02/14/23 History mcg (2,000 unit) capsule calcium citrate 200 mg (950 mg) 1,600 mg PO BID 12/24/22 02/15/23 02/14/23 History tablet etanercept 50 mg/mL (1 mL) 50 mg subcut HERNANDEZ@0900 02/07/23 02/15/23 02/14/23 History subcutaneous syringe (Enbrel) pilocarpine HCl 5 mg tablet 5 mg PO BID 02/15/23 02/15/23 02/14/23 History (Salagen (pilocarpine)) Exam Exam Date and Time: February 14, 2023 0907 Pertinent Lab Results Pertinent Lab Results: Laboratory Tests 02/09/23 02/09/23 06:31 06:31 WBC 7.6 Hgb 12.7 L Hct 39.6 L Plt Count 151 L Sodium 139 Potassium 4.5 Chloride 103 Carbon Dioxide 29 BUN 22 H Creatinine 1.02 Narrative Narrative: EKG 01/2023 Vent. Rate : 066 BPM ? ? Atrial Rate : 066 BPM ?? P-R Int : 170 ms? QRS Dur : 124 ms ? ? QT Int : 470 ms ? ? ? P-R-T Axes : 020 -39 001 degrees ?? QTc Int : 492 ms ? Normal sinus rhythm Left axis deviation Left ventricular hypertrophy with QRS widening ( R in aVL , Prentice product ) Nonspecific ST abnormality Abnormal ECG When compared with ECG of 24-DEC-2022 14:30, QRS duration has increased T wave inversion less evident in Inferior leads T wave inversion no longer evident in Lateral leads ECHO 01/2023 Conclusions: - The left ventricular systolic function is normal.? The ? calculated ejection fraction is 64% by biplane method. ? - There is moderate aortic valve stenosis. ? - There is moderate mitral annular calcification. Possible ? ? ? moderate mitral stenosis.? NM danilo perf SPECT rest & str 01/2023 Impression: ? 1.? Myocardial perfusion imaging study shows likely normal myocardial perfusion 2.? Gated LVEF is 70% 3. Transient ischemic dilatation not present ? EKG is nondiagnostic for ischemia Assessment and Plan Assessment Anesthesia Assessment: Chart Reviewed Final Anesthetic Review Family History of Problems with Anesthesia: No History of Problems with Anesthesia: No Documented by User: Mable Walker MD 02/15/23 07:41 HPI - Anesthesia Eval Consult details Narrative: 82yo M for Left Carotid Endarte[place] [facility] [place]07-02/10[place]23 with TIA/RLE weakness Cardiac eval: Increased surgical risk at least intermediate. If there is surgical indication for the carotid stenosis and the benefits overweigh the risks, may proceed as planned. Cardiac risk discussed with patient in detail.? He understands very well. Insulin pump in situ Prednisone daily for RA (Pt not eval'd in PAT d/t recent hospital discharge) REPLACED BY [facility] Active Problems Active Problems: All Active Problems (Updated 02/15/23 @ 07:15 by Mable Walker MD) Symptomatic stenosis of left carotid artery (Acute) CAD (coronary artery disease) (Acute)- denies chest pain Non-rheumatic aortic stenosis (Acute)- denies dizziness, syncope Preoperative cardiovascular examination (Acute) Transient ischemic attack (TIA) (Acute) Carotid artery stenosis (Acute) Rheumatoid arthritis (Acute) Long-term use of hydroxychloroquine (Acute) 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 (Acute) Mouth dryness (Acute) Gastritis (Acute) Anemia (Acute) Rheumatoid nodule of forearm (Acute) Internal bleeding hemorrhoids (Acute) Osteoporosis with pathological fracture of thoracic vertebra (Acute) Methotrexate, intermediate teacher, current use (Acute) Osteoarthritis of left knee (Acute) Multiple skin nodules (Acute) Polymyalgia Rheumatica Past Medical History Medical History Aortic stenosis CAD (coronary artery disease) Carpal tunnel syndrome Diabetes Elevated cholesterol Former smoker HTN (hypertension) Insulin pump in place Rheumatoid arthritis Family History Family History Father Heart attack Heart disease Mother Pacemaker Cataracts, bilateral Sister Heart problem Heart valve replaced Arthritis Brother Heart attack Brother Rectal cancer Sister History of modified radical mastectomy of right breast Surgical History Surgical History H/O colonoscopy History of cholecystectomy History of hand surgery History of shoulder surgery Hx of cardiac catheterization Hx of carpal tunnel repair Hx of hemorrhoidectomy Hx of lumbar discectomy Social History Social History Household Members: None Housing: House Are you a primary primary care pediatrician to a significant other at home: No Do you presently have visiting nurse or other home services: No Alcohol intake: former Patient Tobacco Use Status: Former Tobacco user Quit Date: 1962 Tobacco use type: Cigarette Years Smoked: 5 YEARS Use of substances other than those prescribed or required for medical reasons: No Are you DNR?: No Advance Directives: Yes Advance Directives on File: Yes Advance Directives Date on File: 02/07/23 service: Yes Current occupational status: employed Current occupation: [employer] Allergies Allergy/AdvReac Type Severity Reaction Status Date / Time Penicillins Allergy Severe ITCHING-SEV Verified 02/15/23 06:13 ERE piperacillin [From Zosyn] Allergy Mild JAUNDICE Verified 02/07/23 09:30 tazobactam [From Zosyn] Allergy Mild JAUNDICE Verified 02/07/23 09:30 Home Medications Medication Instructions Recorded Confirmed Last Taken Type Novolog U-100 Insulin aspart 80 units subcut (via wearable 06/01/20 02/15/23 02/14/23 History injectr) DAILY tamsulosin 0.4 mg capsule 0.4 mg PO BEDTIME 06/24/22 02/15/23 02/14/23 History vitamins A,C,E-azph-kjjrwg 4,296 1 cap PO BID 06/24/22 02/15/23 02/14/23 History mcg-226 mg-90 mg capsule (PreserVision AREDS) acetaminophen 650 mg 650 mg PO Q8H PRN Pain 09/06/22 02/15/23 02/14/23 History tablet,extended release (Tylenol 8 Hour) amlodipine 2.5 mg tablet 2.5 mg PO DAILY 09/06/22 02/15/23 02/14/23 History citalopram 20 mg tablet 20 mg PO DAILY 09/06/22 02/15/23 02/14/23 History cyclobenzaprine 10 mg tablet 10 mg PO DAILY 09/06/22 02/15/23 02/14/23 History gabapentin 600 mg tablet 600 mg PO TID 09/06/22 02/15/23 02/14/23 History cholecalciferol (vitamin D3) 50 50 mcg PO BID 11/21/22 02/15/23 02/14/23 History mcg (2,000 unit) capsule calcium citrate 200 mg (950 mg) 1,600 mg PO BID 12/24/22 02/15/23 02/14/23 History tablet etanercept 50 mg/mL (1 mL) 50 mg subcut HERNANDEZ@0900 02/07/23 02/15/23 02/14/23 History subcutaneous syringe (Enbrel) pilocarpine HCl 5 mg tablet 5 mg PO BID 02/15/23 02/15/23 02/14/23 History (Salagen (pilocarpine)) Exam Height,Weight and Vital Signs: Height 5 ft 7 in Weight 77.564 kg Vital Signs Temp Pulse Resp BP Pulse Ox O2 Del Method 02/15/23 06:36 97.2 F 71 16 148/76 H 96 Room Air Pertinent Lab Results Pertinent Lab Results: Laboratory Tests 02/09/23 02/09/23 06:31 06:31 WBC 7.6 Hgb 12.7 L Hct 39.6 L Plt Count 151 L Sodium 139 Potassium 4.5 Chloride 103 Carbon Dioxide 29 BUN 22 H Creatinine 1.02 Lab Results 02/15/23 02/15/23 02/15/23 Range/Units 06:20 06:20 06:20 WBC 9.3 (4.8-10.8) X10*3/uL RBC 4.68 (4.60-5.80) X10*6/uL Hgb 13.4 L (14.0-18.0) g/dl Hct 41.4 L (42.0-52.0) % MCV 88.5 (80.0-98.0) fL MCH 28.6 (27.0-33.0) pg MCHC 32.4 (31.0-36.0) g/dl RDW 15.4 (11.0-16.0) % Plt Count 167 (160-400) X10*3/uL MPV 9.3 L (9.4-12.4) fL Absolute Nucleated RBC 0.000 (0.0-0.012) X10*3/uL Nucleated RBC % (auto) 0.0 (0.0-0.2) /100WBC PT 10.4 L (11.1-13.3) SEC INR 0.9 (0.9-1.1) APTT 27.4 (26.0-36.4) SEC Sodium 142 (135-145) mmol/L Potassium 4.2 (3.3-5.1) mmol/L Chloride 109 H (96-108) mmol/L Carbon Dioxide 24 (22-29) mmol/L Anion Gap 13 (12-20) BUN 19 H (9-16) mg/dL Creatinine 0.89 (0.5-1.4) mg/dL Estim Creat Clear Calc 57.7 Estimated GFR > 60 POC Glucose (60-115) mg/dL Random Glucose 123 H (60-115) mg/dL Calcium 10.0 (8.4-10.2) mg/dL Blood Type Antibody Screen 02/15/23 02/15/23 Range/Units 06:20 06:50 WBC (4.8-10.8) X10*3/uL RBC (4.60-5.80) X10*6/uL Hgb (14.0-18.0) g/dl Hct (42.0-52.0) % MCV (80.0-98.0) fL MCH (27.0-33.0) pg MCHC (31.0-36.0) g/dl RDW (11.0-16.0) % Plt Count (160-400) X10*3/uL MPV (9.4-12.4) fL Absolute Nucleated RBC (0.0-0.012) X10*3/uL Nucleated RBC % (auto) (0.0-0.2) /100WBC PT (11.1-13.3) SEC INR (0.9-1.1) APTT (26.0-36.4) SEC Sodium (135-145) mmol/L Potassium (3.3-5.1) mmol/L Chloride (96-108) mmol/L Carbon Dioxide (22-29) mmol/L Anion Gap (12-20) BUN (9-16) mg/dL Creatinine (0.5-1.4) mg/dL Estim Creat Clear Calc Estimated GFR POC Glucose 128 H (60-115) mg/dL Random Glucose (60-115) mg/dL Calcium (8.4-10.2) mg/dL Blood Type O Positive Antibody Screen NEGATIVE Airway Mallampati Class: III TM Dist: >3cm Neck ROM: Full Loose/Missing/Broken Teeth: Yes (Many missing. Denies broken or loose teeth) Heart: RRR + systolic murmur Lungs: CTAB Assessment and Plan Assessment Anesthesia Assessment: Anesthesia Plan Discussed Final Anesthetic Review NPO: Yes ASA Class: III Final Preanesthetic Review: No Changes in Pt Med Stat, Meds/Allgs Chart Reviewed, Consent Obtained/Reviewed and Anes Risks/Benef Reviewed Patient Risk: High Procedure Risk: High Assessment/Block/Sedation in SS: Assess/Block/Sedation-SS Anesthetic Plan Anesthetic Plan: GA and Other (Arterial line) Disposition: Standard PACU and Inp. Admit - ICU
[2023-02-15] VITALS (30 sets, daily range): BP systolic 99–148; BP diastolic 37–76; PULSE 61–92; RESP 11–24; TEMP 36.1–36.9; O2SAT 91–100; BMI 26.8
[2023-02-15 06:27] LABS: Hematocrit 41.4 % (42.0-52.0); Hemoglobin 13.4 g/dl (14.0-18.0); Mean Corpuscular HGB Conc 32.4 g/dl (31.0-36.0); Mean Corpuscular Hemoglobin 28.6 pg (27.0-33.0); Mean Corpuscular Volume 88.5 fL (80.0-98.0); Mean Platelet Volume 9.3 fL (9.4-12.4); Platelet Count 167 X10*3/uL (160-400); Red Blood Count 4.68 X10*6/uL (4.60-5.80); Red Cell Distribution Width 15.4 % (11.0-16.0); White Blood Count 9.3 X10*3/uL (4.8-10.8)
[2023-02-15 06:32] LABS: INTERNATIONAL NORM RATIO 0.9 (0.9-1.1); Prothrombin Time 10.4 SEC (11.1-13.3)
[2023-02-15 06:35] LABS: Partial Thromboplastin Time 27.4 SEC (26.0-36.4)
[2023-02-15 06:40] LABS: Anion Gap 13 (12-20); Blood Urea Nitrogen 19 mg/dL (9-16); Carbon Dioxide 24 mmol/L (22-29); Chloride 109 mmol/L (96-108); Creatinine Clr Calc Pharmacy 57.7; Estimated Glomerular Filt Rate > 60; Glucose Random 123 mg/dL (60-115); Potassium 4.2 mmol/L (3.3-5.1); Sodium 142 mmol/L (135-145)
[2023-02-15 06:54] LABS: Glucose, Whole Blood 128 mg/dL (60-115)
[2023-02-15] MEDS: Lactated Ringers 1,000 ML 100 ML IVCONT (06:57)
[2023-02-15] MEDS: vancomycin HCL 1,000 MG in 0.9 % Sodium Chloride 250 ML 270 MG IV ×2 (07:08→18:20)
--- NOTE | 2023-02-15 10:28 | P.OP_ITS ---
Operative Note Operative Note Date of Service: 02/15/23 Narrative: Operative note by [facility] Preoperative diagnosis:1. Left Carotid stenosis 2. Prior TIA Postoperative diagnosis: Same Procedure: Left Carotid endarterectomy with patch angioplasty Surgeon:Alfie Dias M.D. Creeler: Franc BELTRAN Anesthesia: General Specimens: 1 Drains: 1 Estimated blood loss: 100 mL Indications: 82-year-old gentleman who actually presented the hospital last week with a TIA. He was worked up and noted to have high-grade left carotid stenosis on CT angiogram. The patient has signed the informed consent after reviewing risks, complications, benefits, and alternatives previously discussed with the patient. The patient was given the opportunity to ask any additional questions or voice any concerns. All questions were answered to the patient's satisfaction. Procedure in detail: Patient was taken to the operating room and placed in a supine position and prepped and draped in sterile manner with ChloraPrep. Longitudinal incision was made along the anterior border of the left sternocleidomastoid carried down through the subcutaneous fat and fascia. Hemostasis was obtained with electrocautery. The platysma muscle was then divided. The carotid sheath was identified in open. The vagus nerve, Ancef cervicalis, and hypoglossal nerves were identified and avoided. The common internal and external carotids were then freed from the surrounding tissue. At this point, 5000 units of heparin was administered and allowed to circulate for 5 minutes time to take effect. The internal, common, external carotids were clamped in that order. Once this was accomplished, we proceeded with the procedure. The carotid bulb was opened with an 11 blade and extended with Nunez scissors through the very tight lesion into normal internal carotid artery. This was then extended down into the common carotid artery. We then placed a Ortiz shunt. Then the plaque was sharply excised proximally and an eversion endarterectomy was performed successfully at the external. The plaque tapered nicely on to the internal and no tacking sutures were necessary. Heparinized saline was injected and no evidence of flapping or other debris was noted. The remaining carotid was examined, which showed no debris or flaps present. At this point a XenoSure patch was brought on to the field. This was anastomosed to the artery using a 6 0 Prolene in a running fashion. Once approximately 4/5 of the patch was sewn in the shunt was then removed. Prior to the last stitch the internal carotid was back bled through this. Heparinized saline was instilled into the carotid. The last stitch was tied. Hemostasis was excellent. The internal carotid was gently occluded while while of the external and internal were open in that order. Finally the internal was then opened and flow was restored to the entire system. Hemostasis was achieved with interrupted 7-0 Prolene sutures. The wound was irrigated thoroughly. We then placed a 7 flat Magdy-Potetr drain. Deep layer was reapproximated using a 2-0 poly Sorb and finally the superficial layer with a 3-0 Polysorb. The skin was closed in a subcuticular manner. The patient awoke and neurologic status was checked and appeared to be intact. Sponge, needle and instrument counts were correct. The patient tolerated the procedure well. Returned to recovery with stable vitals. This note is constructed using voice recognition software. While every effort has been made to ensure accuracy, polygraph technician errors may have been included. Thank you for allowing me to participate in the care of your patient. Yours sincerely, Alfie Dias MD, FACS, R.P.V.I.
[2023-02-15 10:40] LABS: Glucose, Whole Blood 174 mg/dL (60-115)
[2023-02-15 10:40] LABS: Glucose, Whole Blood 120 mg/dL (60-115)
[2023-02-15] MEDS: Phenylephrine HCL 20 MG in 0.9 % Sodium Chloride 250 ML 29.32 MG IVCONT (11:00)
[2023-02-15 11:19] LABS: Glucose, Whole Blood 188 mg/dL (60-115)
[2023-02-15] MEDS: 0.9 % Sodium Chloride 1,000 ML 80 ML IVCONT ×2 (12:00→20:24)
[2023-02-15 12:26] LABS: Glucose, Whole Blood 210 mg/dL (60-115)
--- NOTE | 2023-02-15 13:06 | PC.NURSE ---
Patient arrives to unit with nurses from surgery, he is supine, alert oriented and complaining of no pain. color is appropriate, cool and dry. BEATA drain with van red blood draining slowly. no additional swelling to slight edema to incision area as pointed out by surgery rn. cms intact in lower extremities. arterial pressure monitoring set and zeroed. Pressures in acceptable range to disconnect phenelyphenrin / abhinav with good effect.
--- NOTE | 2023-02-15 13:49 | PM.CCHP ---
History of Present Illness Date of Service: 02/15/23 Chief Complaint: Status post left CEA 82-year-old gentleman with underlying history of rheumatoid arthritis, CAD, diabetes mellitus, recent admission for TIA noted to have 75% left-sided carotid stenosis, now postop day 0 after an elective left carotid endarterectomy being monitored in the intensive care unit in the postop period. Review of Systems Constitutional: Constitutional: Denies daytime sleepiness, Denies excessive sweating, Denies fatigue, Denies fever(s), Denies lethargy, Denies malaise, Denies night sweats, Denies snoring and Denies weight loss Eyes: Eyes: Denies blurry vision and Denies itchy eyes ENT: Denies nasal congestion, Denies post nasal drip, Denies sinus pain, Denies sinus pressure and Denies other ( Thrush) Cardiovascular: Cardiovascular: Denies chest pain, Denies pedal edema, Denies dyspnea, Denies orthopnea and Denies paroxysmal nocturnal dyspnea Respiratory: Respiratory: Denies cough, Denies hemoptysis, Denies excessive phlegm production, Denies dyspnea, Denies snoring and Denies wheezing Gastrointestinal: Gastrointestinal: Denies abdominal pain and Denies heartburn Musculoskeletal: Musculoskeletal: Denies myalgias, Denies arthralgias and Denies joint swelling Integumentary/Breasts: Skin/Breast: Denies rash Neurologic: Denies memory loss and Denies seizure-like activity Psychiatric: Psychiatric: Denies abnormal sleep pattern, Denies anxiety and Denies memory loss Endocrine: Endocrine: Denies excessive sweating, Denies fatigue and Denies heat intolerance Hematologic/Lymphatic: Hematologic/Lymphatic: Denies easy bruising Allergic/Immunologic: Allergic/Immunologic: Denies itchy eyes, Denies seasonal rhinorrhea and Denies wheezing PMFSH Past Medical History Medical History (Updated 02/15/23 @ 14:09 by Gideon Yañez MD) Aortic stenosis CAD (coronary artery disease) Carpal tunnel syndrome Diabetes Elevated cholesterol Former smoker HTN (hypertension) Insulin pump in place Rheumatoid arthritis Family History Family History Father Heart attack Heart disease Mother Pacemaker Cataracts, bilateral Sister Heart problem Heart valve replaced Arthritis Brother Heart attack Brother Rectal cancer Sister History of modified radical mastectomy of right breast Surgical History Surgical History H/O colonoscopy History of cholecystectomy History of hand surgery History of shoulder surgery Hx of cardiac catheterization Hx of carpal tunnel repair Hx of hemorrhoidectomy Hx of lumbar discectomy Social History Social History Household Members: None Housing: House Are you a primary rn acute care to a significant other at home: No Do you presently have visiting nurse or other home services: No Alcohol intake: former Patient Tobacco Use Status: Former Tobacco user Quit Date: 1964 Tobacco use type: Cigarette Years Smoked: 5 YEARS Use of substances other than those prescribed or required for medical reasons: No Are you DNR?: No Advance Directives: Yes Advance Directives on File: Yes Advance Directives Date on File: 02/07/23 Recently lost weight without trying: No service: Yes Current occupational status: employed Current occupation: [employer] Allergies Allergy/AdvReac Type Severity Reaction Status Date / Time Penicillins Allergy Severe ITCHING-SEV Verified 02/15/23 06:13 ERE piperacillin [From Zosyn] Allergy Mild JAUNDICE Verified 02/07/23 09:30 tazobactam [From Zosyn] Allergy Mild JAUNDICE Verified 02/07/23 09:30 Active Medications: Current Medications Acetaminophen (Acetaminophen 325 Mg Tablet) 650 mg PO Q6H PRN PRN Reason: Pain, Mild (Pain Scale 1-3) Acetaminophen (Acetaminophen 325 Mg Tablet) 650 mg PO ONCE PRN PRN Reason: Pain, Mild (Pain Scale 1-3) Amlodipine Besylate (Amlodipine Besylate 2.5 Mg Tablet) 2.5 mg PO DAILY CLAY; Protocol Aspirin (Aspirin Enteric Coated 81 Mg Tablet.Dr) 81 mg PO DAILY [facility] Atorvastatin Calcium (Atorvastatin Calcium 80 Mg Tablet) 80 mg PO DAILY [facility] Cyclobenzaprine HCl (Cyclobenzaprine Hcl 10 Mg Tablet) 10 mg PO DAILY [facility] Fentanyl (Fentanyl Citrate/Pf 100 Mcg/2 Ml Vial) 25 mcg IVPUSH Q5M PRN; Protocol PRN Reason: Pain, Moderate(Pain Scale 4-6) Gabapentin (Gabapentin 600 Mg Tablet) 600 mg PO TID [facility] Hydroxychloroquine Sulfate (Hydroxychloroquine Sulfate 200 Mg Tablet) 200 mg PO DAILY [facility] Sodium Chloride (Ns) 1,000 mls @ 80 mls/hr IVCONT .[id number] [facility] Last Admin: 02/15/23 12:00 Dose: 80 mls/hr Vancomycin HCl 1,000 mg/ (Sodium Chloride) 270 mls @ 270 mls/hr IV POSTOP ONE Stop: 02/15/23 19:59 Phenylephrine HCl 20 mg/ (Sodium Chloride) 252 mls @ 0 mls/hr IVCONT .Q0M [facility]; Protocol Last Titration: 02/15/23 11:57 Dose: 0 mcg/kg/min, 0 mls/hr Morphine Sulfate (Morphine Sulfate 2 Mg/Ml Cartridge) 2 mg IVPUSH Q4H PRN; Protocol PRN Reason: Pain, Severe (Pain Scale 7-10) Non-Formulary Medication (Calcium Citrate) 1,600 mg PO BID [facility] Non-Formulary Medication (Citalopram) 20 mg PO DAILY [facility] Non-Formulary Medication (Etanercept [Enbrel]) 50 mg SUBCUT HERNANDEZ@0900 [facility] Non-Formulary Medication (Pilocarpine Hcl [Salagen (Pilocarpine)]) 5 mg PO BID [facility] Non-Formulary Medication (Novolog U-100 Insulin Aspart) 80 units SUBCUTCONT DAILY [facility] Omeprazole (Omeprazole 20 Mg Capsule.Dr) 20 mg PO BID [facility] Ondansetron HCl (Ondansetron Hcl 4 Mg/2 Ml Vial) 4 mg IVPUSH ONCE PRN PRN Reason: Nausea and Vomiting Oxycodone HCl (Oxycodone Hcl Immed Release 5 Mg Tablet) 5 mg PO Q4H PRN PRN Reason: Pain, Moderate(Pain Scale 4-6) Oxycodone HCl (Oxycodone Hcl Immed Release 5 Mg Tablet) 5 mg PO ONCE PRN PRN Reason: Pain, Severe (Pain Scale 7-10) Pharmacy Consult (Consult Rx Vancomycin Dosing) 1 each MISCELLANE DAILY PRN PRN Reason: Consult order Pharmacy Consult (Consult Rx Vancomycin Dosing) 1 each MISCELLANE DAILY PRN PRN Reason: Consult order Prednisone (Prednisone 10 Mg Tablet) 10 mg PO DAILY [facility] Sodium Chloride (0.9 % Sodium Chloride Flush 3 Ml Syringe) 3 ml IVFLUSH QSHIFT [facility] Tamsulosin HCl (Tamsulosin Hcl 0.4 Mg Capsule) 0.4 mg PO BEDTIME [facility] Vitamin D (Cholecalciferol (Vitamin D3) 25 Mcg Tablet) 50 mcg PO BID [facility] Home Medications Medication Instructions Recorded Confirmed Last Taken Type Novolog U-100 Insulin aspart 80 units subcut (via wearable 06/01/20 02/15/23 02/14/23 History injectr) DAILY tamsulosin 0.4 mg capsule 0.4 mg PO BEDTIME 06/24/22 02/15/23 02/14/23 History vitamins A,C,S-hzxo-nczqhl 4,296 1 cap PO BID 06/24/22 02/15/23 02/14/23 History mcg-226 mg-90 mg capsule (PreserVision AREDS) acetaminophen 650 mg 650 mg PO Q8H PRN Pain 09/06/22 02/15/23 02/14/23 History tablet,extended release (Tylenol 8 Hour) amlodipine 2.5 mg tablet 2.5 mg PO DAILY 09/06/22 02/15/23 02/14/23 History citalopram 20 mg tablet 20 mg PO DAILY 09/06/22 02/15/23 02/14/23 History cyclobenzaprine 10 mg tablet 10 mg PO DAILY 09/06/22 02/15/23 02/14/23 History gabapentin 600 mg tablet 600 mg PO TID 09/06/22 02/15/23 02/14/23 History cholecalciferol (vitamin D3) 50 50 mcg PO BID 11/21/22 02/15/23 02/14/23 History mcg (2,000 unit) capsule calcium citrate 200 mg (950 mg) 1,600 mg PO BID 12/24/22 02/15/23 02/14/23 History tablet etanercept 50 mg/mL (1 mL) 50 mg subcut HERNANDEZ@0900 02/07/23 02/15/23 02/14/23 History subcutaneous syringe (Enbrel) pilocarpine HCl 5 mg tablet 5 mg PO BID 02/15/23 02/15/23 02/14/23 History (Salagen (pilocarpine)) Physical Exam Vital Signs: Vital Signs: Last Vital Signs Temp 97.5 F 02/15/23 11:58 Pulse 80 02/15/23 13:00 Resp 14 02/15/23 13:00 BP 125/51 L 02/15/23 13:00 Pulse Ox 92 02/15/23 13:00 O2 Del Method Nasal Cannula 02/15/23 13:00 O2 Flow Rate 2 02/15/23 13:00 BMI result Body Mass Index 26.8 Const: General: no acute distress and alert Nutritional Appearance: not obese Orientation/consciousness: Other orientation findings ( oriented) HEENT: Head: Yes atraumatic Eyes: General: appearance normal, both eyes and all related structures Sclerae: sclerae normal EOM: EOMs intact bilaterally Neck: Neck: Yes other ( left CEA site with BEATA drain with sanguinous drainage, no hematoma) Resp: Effort & Inspection: normal respiratory effort and no use of accessory muscles Auscultation: clear to auscultation bilaterally Cardio: Rate: regular rate Rhythm: regular rhythm Heart sounds: no gallops, no murmurs and no rubs Skin: General skin exam: other ( warm) Extrem: General: No clubbing, No cyanosis and No edema Results Labs 02/15/23 06:20 02/15/23 06:20 Labs: Laboratory Results - last 24 hr 02/15/23 02/15/23 02/15/23 06:20 06:20 06:20 MCV 88.5 MCH 28.6 MCHC 32.4 RDW 15.4 Plt Count 167 MPV 9.3 L Absolute Nucleated RBC 0.000 Nucleated RBC % (auto) 0.0 PT 10.4 L INR 0.9 APTT 27.4 Anion Gap 13 Estim Creat Clear Calc 57.7 Estimated GFR > 60 POC Glucose Random Glucose 123 H Calcium 10.0 Blood Type Antibody Screen 02/15/23 02/15/23 02/15/23 06:20 06:50 08:10 MCV MCH MCHC RDW Plt Count MPV Absolute Nucleated RBC Nucleated RBC % (auto) PT INR APTT Anion Gap Estim Creat Clear Calc Estimated GFR POC Glucose 128 H 120 H Random Glucose Calcium Blood Type O Positive Antibody Screen NEGATIVE 02/15/23 02/15/23 02/15/23 10:18 11:16 12:16 MCV MCH MCHC RDW Plt Count MPV Absolute Nucleated RBC Nucleated RBC % (auto) PT INR APTT Anion Gap Estim Creat Clear Calc Estimated GFR POC Glucose 174 H 188 H 210 H Random Glucose Calcium Blood Type Antibody Screen Assessment and Plan (1) Rheumatoid arthritis: Qualifiers: Rheumatoid arthritis location: multiple sites Rheumatoid factor presence: without rheumatoid factor Qualified Code(s): M06.09 - Rheumatoid arthritis without rheumatoid factor, multiple sites Status: Acute (2) CAD (coronary artery disease): Status: Acute (3) Diabetes: Status: Acute (4) Carotid artery stenosis: Status: Acute Plan Assessment: 82-year-old gentleman with underlying rheumatoid arthritis, CAD, diabetes mellitus, left carotid stenosis now postop day 0 status post elective left carotid endarterectomy Plan: Neuro: No acute issues. Cardiac: postop day 0 status post elective left carotid endarterectomy. Vascular surgery service care appreciated. Maintain SBP under 160. Underlying CAD. Pulmonary: No acute issues. Renal: No acute issues. Endo: No acute issues. Underlying diabetes mellitus. GI: No acute issues. ID: No acute issues Heme/Onc: No acute issues. Psych: No acute issues. Miscellaneous: No acute issues. Underlying rheumatoid arthritis. Prophylaxis: Per vascular surgery Diet: regular Time Spent With Patient Time: Total time managing care of this patient today ____ minutes.
--- NOTE | 2023-02-15 14:10 | PHA.MEDREC ---
Pharmacy Consult ? Medication Reconciliation Pharmacy has reviewed the medication reconciliation completed nursing. Ina Waterman called [facility]. [facility]. Bertrand FuentesD
[2023-02-15] MEDS: Gabapentin 600 MG TABLET PO ×2 (14:35→20:31)
[2023-02-15 16:33] LABS: Glucose, Whole Blood 318 mg/dL (60-115)
[2023-02-15] MEDS: Acetaminophen 325 MG TABLET 650 MG PO ×2 (16:34→23:59)
[2023-02-15] MEDS: Insulin Lispro 100 UNIT/ML 3 ML VIAL SUBCUT ×2 (16:34→20:31)
[2023-02-15] MEDS: Omeprazole 20 MG CAPSULE.DR PO (16:34)
[2023-02-15 20:19] LABS: Glucose, Whole Blood 300 mg/dL (60-115)
[2023-02-15] MEDS: Tamsulosin HCL 0.4 MG CAPSULE PO (20:31)
[2023-02-15] MEDS: Cholecalciferol (Vitamin D3) 25 MCG TABLET 50 MCG PO (20:31)
[2023-02-15] MEDS: Phenylephrine HCL 20 MG in 0.9 % Sodium Chloride 250 ML 23.46 MG IVCONT (20:52)
[2023-02-16] VITALS (19 sets, daily range): BP systolic 97–166; BP diastolic 51–106; PULSE 64–76; RESP 14–30; TEMP 36.5–36.6; O2SAT 91–97; BMI 29.6
[2023-02-16] MEDS: Melatonin 3 MG TABLET 6 MG PO (02:42)
[2023-02-16 04:57] LABS: MANUAL DIFF FLAG NO
[2023-02-16 05:01] LABS: Basophils Percent Auto 0.1 % (0-2); Eosinophils Percent Auto 0.3 % (0-4); Hematocrit 34.3 % (42.0-52.0); Hemoglobin 11.1 g/dl (14.0-18.0); Imm Gran Abs Auto 0.04 X10*3/uL (0.00-0.03); Imm Gran Pct Auto 0.4 % (0.0-0.4); Lymphocytes Absolute Auto 1.6 X10*3/uL (1.2-4.9); Lymphocytes Percent Auto 14.5 % (20-40); Mean Corpuscular HGB Conc 32.4 g/dl (31.0-36.0); Mean Corpuscular Hemoglobin 28.3 pg (27.0-33.0); Mean Corpuscular Volume 87.5 fL (80.0-98.0); Mean Platelet Volume 9.3 fL (9.4-12.4); Monocytes Absolute Auto 1.4 X10*3/uL (0.1-1.2); Monocytes Percent Auto 12.6 % (2-11); Neutrophils Absolute Auto 8.1 x10*3/uL (2.0-8.3); Neutrophils Percent Auto 72.1 % (45-73); Platelet Count 151 X10*3/uL (160-400); Red Blood Count 3.92 X10*6/uL (4.60-5.80); Red Cell Distribution Width 15.4 % (11.0-16.0); White Blood Count 11.2 X10*3/uL (4.8-10.8)
[2023-02-16 05:15] LABS: Albumin Level 3.1 g/dL (3.5-5.0); Magnesium 1.9 mg/dL (1.6-2.6); Phosphorus 4.1 mg/dL (2.7-4.5)
[2023-02-16 05:16] LABS: Anion Gap 13 (12-20); Blood Urea Nitrogen 18 mg/dL (9-16); Calcium 9.2 mg/dL (8.4-10.2); Carbon Dioxide 23 mmol/L (22-29); Chloride 106 mmol/L (96-108); Creatinine Clr Calc Pharmacy 61.2; Estimated Glomerular Filt Rate > 60; Glucose Random 256 mg/dL (60-115); Sodium 138 mmol/L (135-145)
[2023-02-16] MEDS: Omeprazole 20 MG CAPSULE.DR PO (05:53)
[2023-02-16] MEDS: 0.9 % Sodium Chloride 1,000 ML 80 ML IVCONT (06:10)
[2023-02-16 07:22] LABS: Glucose, Whole Blood 243 mg/dL (60-115)
[2023-02-16] MEDS: Insulin Lispro 100 UNIT/ML 3 ML VIAL SUBCUT ×2 (09:06→11:58)
[2023-02-16] MEDS: Cholecalciferol (Vitamin D3) 25 MCG TABLET 50 MCG PO (09:06)
[2023-02-16] MEDS: Gabapentin 600 MG TABLET PO (09:07)
[2023-02-16] MEDS: Escitalopram Oxalate 10 MG TABLET PO (09:08)
[2023-02-16] MEDS: Aspirin Enteric Coated 81 MG TABLET.DR PO (09:08)
[2023-02-16] MEDS: amLODIPine Besylate 2.5 MG TABLET PO (09:08)
[2023-02-16] MEDS: Hydroxychloroquine Sulfate 200 MG TABLET PO (09:09)
[2023-02-16] MEDS: predniSONE 10 MG TABLET PO (09:09)
[2023-02-16] MEDS: Atorvastatin Calcium 80 MG TABLET PO (09:09)
[2023-02-16] MEDS: Cyclobenzaprine HCl 10 MG TABLET PO (09:10)
--- NOTE | 2023-02-16 10:51 | HO.POSTANES ---
Post Anesthesia Evaluation Post Anesthesia Evaluation Date of Service: 02/16/23 Vital Signs: Vital Signs Temp Pulse Pulse Resp BP BP Pulse Ox 02/16/23 10:00 67 19 135/70 94 02/16/23 09:00 71 14 160/62 H 95 02/16/23 08:00 97.9 F 75 30 H 134/62 94 02/16/23 07:00 64 17 126/106 H 94 02/16/23 02:47 97.8 F 02/16/23 02:45 68 136/53 L 02/16/23 02:03 69 143/55 H 02/16/23 00:00 72 97/83 02/16/23 01:12 71 101/88 02/16/23 00:09 72 161/63 H 02/16/23 06:00 97.7 F 65 19 140/52 H 93 02/16/23 05:00 67 14 135/53 L 91 L 02/16/23 04:00 67 19 128/51 L 91 L 02/16/23 03:00 69 18 130/52 L 93 02/16/23 02:00 70 18 142/56 H 93 02/16/23 01:00 73 22 H 155/60 H 91 L 02/16/23 00:00 72 16 166/71 H 96 02/16/23 04:00 68 135/53 L 02/15/23 23:00 71 18 130/50 L 91 L O2 Del Method 02/16/23 10:00 Room Air 02/16/23 09:00 Room Air 02/16/23 08:00 Room Air 02/16/23 07:00 Room Air 02/16/23 02:47 02/16/23 02:45 02/16/23 02:03 02/16/23 00:00 02/16/23 01:12 02/16/23 00:09 02/16/23 06:00 Room Air 02/16/23 05:00 Room Air 02/16/23 04:00 Room Air 02/16/23 03:00 Room Air 02/16/23 02:00 Room Air 02/16/23 01:00 Room Air 02/16/23 00:00 Room Air 02/16/23 04:00 02/15/23 23:00 Room Air Anesthesia: General Endotracheal-GETA Mental Status: Awake Pain Control: Satisfactory Nausea/Vomiting: None Hydration: Adequate Anesthesia-Related Issues: No Anes. Related Issues
[2023-02-16] MEDS: 0.9 % Sodium Chloride Flush 3 ML SYRINGE IVFLUSH (10:53)
--- NOTE | 2023-02-16 11:26 | MHC.CM.PN ---
Met w/pt to review d/c planning needs: pt resides alone: has family support near by: independent w/care needs and will call brother for transportation to home. CM to follow for changes. IMM in chart: HCP copy requested
--- NOTE | 2023-02-16 11:28 | P.CDIM_ITS ---
PROVIDER RESPONSE TEXT: To clarify, the appropriate diagnosis supported by the clinical indicators: Diabetes mellitus Type 2 with hyperglycemia QUERY TEXT: PHYSICIAN'S DOCUMENTATION REQUEST Date of Query: 02/16/2023 09:31 AM EDT Patient Name: BEBO SHEPHERD Admit Date: 02/15/2023 Dear Gideon Yañez, A review of the medical record indicates additional documentation may be needed. Please review below and update the documentation accordingly. Clinical Indicators: LAB FINDINGS: POC glucose 318 H Insulin Is there a diagnosis that correlates with these lab findings: Diabetes mellitus Type 2 with hyperglycemia Other please specify Other (explain)Clinically unable to determine (explain)Thank you, Yaneth Hampton, CCS, CDIS Use of terms such as suspected, likely, concern for, or probable (associated with a specific diagnosi s that is being evaluated, monitored, or treated as if it exists) are acceptable and can be coded in the inpatient se tting, when documented at the time of discharge. Please use your independent medical judgment in providing your response. THIS QUERY IS PART OF THE PERMANENT MEDICAL RECORD
[2023-02-16 12:13] LABS: Glucose, Whole Blood 271 mg/dL (60-115)
--- NOTE | 2023-02-16 12:35 | PM.DS ---
DS: Providers Provider Date of Service: 02/16/23 Date of admission: 02/15/23 06:12 Primary care physician: Gisselle Gilman MD DS: Diagnosis Discharge Diagnosis (1) Rheumatoid arthritis: Status: Acute (2) CAD (coronary artery disease): Status: Acute (3) Diabetes: Status: Acute (4) Carotid artery stenosis: Status: Acute DS: Summary Hospital Course Hospital Course: patient was originally seen last we with carotid stenosis with TIA. He underwent elective carotid endarterectomy on February 15 2023. Postprocedure he was hypotensive and did have to be maintained and abhinav. He was observed in the ICU overnight and blood pressure seem to have stabilized. Currently doing extremely well neurologically intact tolerating a diet. Stable for discharge. Time Spent with Patient Time attestation: Total time managing care of this patient today ____ minutes. Discharge coordination time: Greater than 30 minutes Quality: Safe Use of Opioids Does Pt have an Active Cancer Diagnosis on the Problem List?: No Quality: Stroke Does the patient have a stroke diagnosis?: No Physical Exam Vital Signs: Vital Signs: Last Vital Signs Temp 97.8 F 02/16/23 12:00 Pulse 76 02/16/23 12:00 Resp 22 H 02/16/23 12:00 BP 134/53 L 02/16/23 12:00 Pulse Ox 97 02/16/23 12:00 O2 Del Method Room Air 02/16/23 12:00 O2 Flow Rate 2 02/15/23 20:00 BMI result Body Mass Index 29.6 Const: General: cooperative, healthy appearing and no acute distress Orientation/consciousness: oriented to person, oriented to place and oriented to time HEENT: Head: Yes normal to inspection Neck: Carotids: no bruits Chest: Chest palpation & inspection: normal inspection of the chest Resp: Effort & Inspection: normal respiratory effort and able to speak in complete sentences Auscultation: clear to auscultation bilaterally Cardio: Rate: regular rate Heart sounds: S1 normal heart sound present and S2 normal heart sound present GI: Inspection: Yes normal to inspection Skin: Other: Neck incision well healed General skin exam: no rashes or lesions noted Wounds: no wounds Neuro: General: oriented to person, oriented to place, oriented to time and CN's II-XI intact bilaterally Extrem: General: Yes normal to inspection, Yes full ROM and Yes no clubbing, cyanosis or edema Psych: Appearance: grossly normal and well kempt Speech and movement: Normal speech and movement present Affect: normal affect DS: Data Data Completed and Pending Completed studies during hospitalization [Text1]: Pending at discharge 02/15/23 09:41 Surgical [PTH] Routine Labs on day of discharge: Laboratory Results - last 24 hr 02/15/23 02/15/23 02/16/23 16:29 20:13 04:47 WBC 11.2 H RBC 3.92 L Hgb 11.1 L Hct 34.3 L MCV 87.5 MCH 28.3 MCHC 32.4 RDW 15.4 Plt Count 151 L MPV 9.3 L Immature Gran % (Auto) 0.4 Neut % (Auto) 72.1 Lymph % (Auto) 14.5 L Pacific % (Auto) 12.6 H Eos % (Auto) 0.3 Baso % (Auto) 0.1 Lymph # (Auto) 1.6 Pacific # (Auto) 1.4 H Eos # (Auto) 0.0 Baso # (Auto) 0.0 Abs Immat Gran (auto) 0.04 H Absolute Neuts (auto) 8.1 Absolute Nucleated RBC 0.000 Nucleated RBC % (auto) 0.0 Sodium Potassium Chloride Carbon Dioxide Anion Gap BUN Creatinine Estim Creat Clear Calc Estimated GFR POC Glucose 318 H 300 H Random Glucose Calcium Phosphorus Magnesium Albumin 02/16/23 02/16/23 02/16/23 04:47 04:47 07:18 WBC RBC Hgb Hct MCV MCH MCHC RDW Plt Count MPV Immature Gran % (Auto) Neut % (Auto) Lymph % (Auto) Pacific % (Auto) Eos % (Auto) Baso % (Auto) Lymph # (Auto) Pacific # (Auto) Eos # (Auto) Baso # (Auto) Abs Immat Gran (auto) Absolute Neuts (auto) Absolute Nucleated RBC Nucleated RBC % (auto) Sodium 138 Potassium 4.0 Chloride 106 Carbon Dioxide 23 Anion Gap 13 BUN 18 H Creatinine 0.84 Estim Creat Clear Calc 61.2 Estimated GFR > 60 POC Glucose 243 H Random Glucose 256 H Calcium 9.2 D Phosphorus 4.1 Magnesium 1.9 Albumin 3.1 L 02/16/23 11:28 WBC RBC Hgb Hct MCV MCH MCHC RDW Plt Count MPV Immature Gran % (Auto) Neut % (Auto) Lymph % (Auto) Pacific % (Auto) Eos % (Auto) Baso % (Auto) Lymph # (Auto) Pacific # (Auto) Eos # (Auto) Baso # (Auto) Abs Immat Gran (auto) Absolute Neuts (auto) Absolute Nucleated RBC Nucleated RBC % (auto) Sodium Potassium Chloride Carbon Dioxide Anion Gap BUN Creatinine Estim Creat Clear Calc Estimated GFR POC Glucose 271 H Random Glucose Calcium Phosphorus Magnesium Albumin Discharge Plan Discharge Anticipated Discharge Date/Time: 02/16/23 12:31 Patient Disposition: Home, Self-Care Discharge Diagnosis: status post carotid endarterectomy Referrals: Gisselle Gilman MD [Primary Care Provider] - 1 Week Discharge Medications: New oxycodone-acetaminophen [Endocet] 5-325 mg tablet 1 tab PO TID PRN (Reason: pain) Qty: 10 0RF Rx Instructions: Partial Fill upon patient request. Continued omeprazole 20 mg capsule,delayed release(DR/EC) 20 mg PO BID 90 Days Qty: 180 3RF prednisone 10 mg tablet 10 mg PO DAILY Qty: 60 1RF hydroxychloroquine 200 mg tablet 200 mg PO DAILY Qty: 90 1RF Novolog U-100 Insulin aspart 80 units subcut (via wearable injectr) DAILY Rx Instructions: via TANDEM insulin pump gabapentin 600 mg tablet 600 mg PO TID calcium citrate 200 mg (950 mg) Tablet 1,600 mg PO BID Enbrel 50 mg/mL (1 mL) Syringe 50 mg SUBCUT HERNANDEZ@0900 atorvastatin 80 mg Tablet 80 mg PO DAILY Qty: 90 0RF aspirin 81 mg Tablet,Delayed Release (Dr/Ec) 81 mg PO DAILY Qty: 90 0RF pilocarpine HCl [Salagen (pilocarpine)] 5 mg tablet 5 mg PO BID citalopram 20 mg tablet 20 mg PO DAILY PreserVision AREDS [id number] dorx-le-jwip capsule 1 cap PO BID tamsulosin 0.4 mg capsule 0.4 mg PO BEDTIME amlodipine 2.5 mg tablet 2.5 mg PO DAILY cyclobenzaprine 10 mg tablet 10 mg PO DAILY acetaminophen [Tylenol 8 Hour] 650 mg tablet extended release 650 mg PO Q8H PRN (Reason: Pain) cholecalciferol (vitamin D3) 50 mcg (2,000 unit) capsule 50 mcg PO BID Discharge Orders: Discharge Order (Routine); Ordered 02/16/23 Ordered By: Alfie Dias Diet: Advance to usual diet Activity on Discharge: As tolerated Stand Alone Forms: Patient Portal Discharge page Care Plan Goals: carotid surveillance follow-up Health Concerns: carotid stenosis Plan of Treatment: surveillance follow-up with ultrasound Assessment: status post carotid endarterectomy
--- NOTE | 2023-02-16 13:51 | PC.NURSE ---
Addendum entered by Pablo Veras RN 02/16/23 14:31: Patient in sinus rhythm with BBB and prolonged QTc 520 ms on telemetry, which is similar to EKG from 02/07 and present earlier today. Original Note: Assumed care at 08:15. Patient alert and oriented x4. Patient denies pain. Patient was seen by Dr. Dias and order placed to remove ng, ng removed at 9:30 with voiding without issue to urinal at 11:20. Per Dr. Dias, removed R radial marley, removed R radial marley with small spot of sanguineous drainage, some bruising to anterior right wrist and very slight swelling, good CMS to the hand and fingers, and provider removed jarret drain from left neck, bandaged with tegaderm over Dry sterile gauze where there is some small sanguineous drainage, and provider ordered patient to remove dressing after 24 hours, but incision site is not to be scrubbed or for steristrips not to be removed, patient to followup with Dr. Dias and PCP outpatient, good teach back on plan of care, signed release to [facility] and [facility] was [facility] to [place]. Patient with finecrackles auscultated to bases posteriorly, Notified MD, and new order for stop IV normal saline, stopped. Patient breathing easily and nonlabored on room air. Patient with distant murmur heart sounds, patient reports murmur is known and he follows with Dr. Grider cardiology and this MD is aware per patient's reports. Patient BP slightly elevated SBP in 130's. Patient has skin tear on right upper arm present on admission, has wound care orders patient manages on own, refused dressing change today, and says he will to when he gets home as he needs Coban.
--- NOTE | 2023-02-16 14:19 | PC.NURSE ---
Received patient to ICU room 254, @ approx 1255. Intubated w/ 7.5 ETT @ 22cm, post op lap thoracotomy, 28fr chest tube in place - left upper chest. Report received from PHYSICAL THERAPIST CLINIC DIRECTOR & anesthesia at bedside upon transport. Ambu bag used for transport, put on vent in ICU with RT at bedside - AC 14, TV 450, PEEP 5, fio2 50%. Restraints applied for airway safety. Started patient on propofol, to anticipate awakening, per Dr Yañez order (see MAR). Olguin cath inserted - 16fr. CXR ordered & taken. Order to put chest tube to -20 cm suction, per Kaykay BELTRAN. Order initiated, small grade 1 leak noted with suction. small amt crepitus noted on left breast / side area. Kaykay made aware of leak noted when suction put on. No new ordered. Fentanyl started - plan to treat pain and decrease propofol, goal to wake patient up per Dr Yañez. Patient awakening with titration to verbal stimuli. Tolerating vent. Patient put on pressure support 5/5, 50% - tolerated for a short time. 50mcg fent bolus given @ 1358, patient back to sleep - changed back to AC settings - with MD at bedside during sedation vacation & weaning trial.
== END 2023-02-16 13:15 | disposition home or self-care (01) | DRG 39 ==
LOC: HO.SSSA 06:13 → HO.ICU 11:02
PROVIDERS: Admitting Provider Surgery Vascular Surgery; PCP Internal Medicine; Visit Provider Internal Medicine Pulmonary Disease
PROC: 03CN0ZZ Extirpation of Matter from Left External Carotid Artery, Open Approach (ICD-10-PCS; CPT 35301; principal; 2023-02-15 07:30)
DX: I65.22 Occlusion and stenosis of left carotid artery (principal); I25.10 Atherosclerotic heart disease of native coronary artery without angina pectoris; I10 Essential (primary) hypertension; E11.65 Type 2 diabetes mellitus with hyperglycemia; M06.00 Rheumatoid arthritis without rheumatoid factor, unspecified site; Z87.891 Personal history of nicotine dependence; Z86.73 Personal history of transient ischemic attack (TIA), and cerebral infarction without residual deficits; Z79.4 Long term (current) use of insulin; Z79.52 Long term (current) use of systemic steroids; Z79.82 Long term (current) use of aspirin; Z79.899 Other long term (current) drug therapy
CPT/HCPCS: 36415; 80048; 82040; 82947; 83735; 84100; 85025; 85027; 85610; 85730; 86850; 86900; 86901; 88304; 88311; C1758; C1768; J1100; J1643; J2250; J2371; J2405; J2795; J3010; J3370

== ENCOUNTER → 2023-02-15 06:12 | Outpatient (BNV) | payer MEDICARE, SELFPAY | PROVIDERS: Admitting Provider Surgery Vascular Surgery; PCP Internal Medicine; Visit Provider Surgery Vascular Surgery | DX: M06.09 Rheumatoid arthritis without rheumatoid factor, multiple sites (principal); I25.10 Atherosclerotic heart disease of native coronary artery without angina pectoris; E11.9 Type 2 diabetes mellitus without complications; I65.29 Occlusion and stenosis of unspecified carotid artery | CPT/HCPCS: 35301; 99024 ==

== ENCOUNTER → 2023-02-15 06:12 | Outpatient (BNV) | payer MEDICARE, SELFPAY | PROVIDERS: Admitting Provider Surgery Vascular Surgery; PCP Internal Medicine; Visit Provider Internal Medicine Pulmonary Disease | DX: I65.22 Occlusion and stenosis of left carotid artery (principal); M06.09 Rheumatoid arthritis without rheumatoid factor, multiple sites; I25.10 Atherosclerotic heart disease of native coronary artery without angina pectoris; E11.9 Type 2 diabetes mellitus without complications | CPT/HCPCS: 99232 ==

== ENCOUNTER 2023-03-22 07:45 | Outpatient (REF) | payer MEDICARE, SELFPAY ==
[2023-03-22 09:30] LABS: MN% 89.3 %; PMN% 10.7 %; RBC Synovial Fluid 0.418 X10*6/uL; WBC Synovial Fluid 2.683 X10*3/uL
[2023-03-22 10:57] LABS: BF Shift QC OK YES; Lymphocytes Synovial Fluid 100 %; Man Diluent Bkgrd OK YES; Neutrophils Synovial Fluid 0 %; Source Synovial Fluid RT ELBOW
== END 2023-03-22 07:46 | disposition home or self-care (01) ==
LOC: HO.LAB 07:45
PROVIDERS: PCP Internal Medicine; Visit Provider Student in an Organized Health Care Education/Training Program
DX: M70.21 Olecranon bursitis, right elbow (principal); M06.00 Rheumatoid arthritis without rheumatoid factor, unspecified site; M80.08XA Age-related osteoporosis with current pathological fracture, vertebra(e), initial encounter for fracture; Z79.899 Other long term (current) drug therapy
CPT/HCPCS: 20605; 87070; 87073; 87116; 87205; 87206; 89051; 89060; 99212; J3301

== ENCOUNTER 2023-03-22 07:45 | Outpatient (AMB) | payer MEDICARE, SELFPAY ==
--- NOTE | 2023-03-22 07:53 | MHC.OFFVIS ---
Intake Vital Signs 03/22/23 07:55 Height 5 ft 6 in Weight 174 lb 2.643 oz BMI 28.1 BP 122/70 Blood Pressure Location Rt brachial Position Sitting Pulse 83 Pulse Source Pulse Oximeter Temp 98.3 F Temp Source Skin Pulse Oximetry (%) 97 Oxygen Delivery Method Room Air Intake Visit Reasons: Rt Elbow pain/swelling Intake Note: Pt seen today c/o Rt elbow swelling, full of fluid. Denies fever, redness, warm to touch. c/o left pinky finger pain Escrow Assistant Required: No Accompanied by: Self / Same As Patient Allergies Penicillins Allergy (Severe, Verified 03/22/23 07:54) ITCHING-SEVERE piperacillin [From Zosyn] Allergy (Mild, Verified 03/22/23 07:54) JAUNDICE tazobactam [From Zosyn] Allergy (Mild, Verified 03/22/23 07:54) JAUNDICE Medication List - Last Reconciled 03/22/23 by Marisela Neil MD acetaminophen ER (Tylenol 8 Hour) 650 mg PO Q8H PRN amlodipine 2.5 mg PO DAILY aspirin 81 mg PO DAILY atorvastatin 80 mg PO DAILY calcium citrate 1,600 mg PO BID cholecalciferol (vitamin D3) 50 mcg PO BID citalopram 20 mg PO DAILY cyclobenzaprine 10 mg PO DAILY gabapentin 600 mg PO TID hydroxychloroquine 200 mg PO DAILY [Novolog U-100 Insulin aspart 80 multiple units subcut (via wearable injectr) DAILY] omeprazole 20 mg PO BID 90 days pilocarpine HCl (Salagen (pilocarpine)) 5 mg PO BID prednisone 10 mg PO DAILY tamsulosin 0.4 mg PO BEDTIME tocilizumab (Actemra ACTPen) 162 mg subcut Q2W vitamins A,C,U-lfhn-gvzzxf 4,296 mcg-226 mg-90 mg (PreserVision AREDS) 1 cap PO BID HPI HPI Comments History of Present Illness Details 83-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 Patient was recently admitted for a TIA and was found to have significant left carotid atherosclerosis, he had a left carotid endarterectomy and the procedure was uneventful. Three weeks ago he was diagnosed with COVID, symptoms are improving. He received Paxlovid. States that he started taking Actemra 1 month ago. Did 2 injections so far. States that his joint pains are a little better. Denies any wrist pain today but complains of left pinky pain. States that he has been having pain and swelling in his right elbow for the last 1-2 years, it fluctuates. The pain is worse with elbow pressure. He denies any fevers or if it can not limitation of range of motion. In 2019 patient had recurrent left olecranon bursitis. He states that he was diagnosed with a bug called yumikojosey eventually he had to have a left olecranon bursectomy. Initial history: This is an 82-year-old male referred from the [facility] with complex past medical history including diabetes mellitus on insulin pump, dyslipidemia, CAD, PMR, rheumatoid arthritis who presents for evaluation of rheumatoid arthritis. 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 Patient stated he was diagnosed with PMR more than [address] Nichole, he stated that he was started on prednisone 20 mg which would be tapered down to 10 mg and as soon as he is on lower than 10 mg he starts flaring with diffuse joint pain. He then followed with Dr. alfaro and most recently with Gisselle Taylor. Patient has had numerous surgeries due to his rheumatoid arthritis, he states that his carpal bones are fused bilaterally, he also had right wrist surgery, he has SLAP repair surgery for his left shoulder and rotator cuff repair for his right shoulder. He also had a bursectomy for his left elbow. He was started on hydroxychloroquine a few months ago by Gisselle Taylor and he is not sure if it is helping. He also has history of osteoporosis complicated by multiple vertebral fractures in 2021 which were quite painful. He was started on Fosamax once weekly by Gisselle Taylor. About a month ago he had a flare up of diffuse joint pain that was attributed to Fosamax. Since then Fosamax had been stopped. Prednisone was increased back to 15 mg by his PCP. He states that he had a flare-up affecting his wrists, elbows, shoulders and left knee. His pain has improved but he continues to have left knee pain for the last 2-3 weeks. Continues to have chronic low back pain nonradiating. He recently had intermittent chest pain and was evaluated by his well flow operator and referred for a stress test. [facility] Medical History Symptomatic stenosis of left carotid artery Non-rheumatic aortic stenosis Aortic stenosis Rheumatoid arthritis Carpal tunnel syndrome Former smoker Insulin pump in place Diabetes Elevated cholesterol CAD (coronary artery disease) HTN (hypertension) Surgical History Hx of carpal tunnel repair Hx of cardiac catheterization History of shoulder surgery History of cholecystectomy History of hand surgery Hx of hemorrhoidectomy Hx of lumbar discectomy H/O colonoscopy Family History Father Heart attack Heart disease Mother Pacemaker Cataracts, bilateral Sister Heart problem Heart valve replaced Arthritis Brother Heart attack Brother Rectal cancer Sister History of modified radical mastectomy of right breast Social History Household Members: None Housing: House Are you a primary resident care coordinator to a significant other at home: No Do you presently have visiting nurse or other home services: No Alcohol intake: former Patient Tobacco Use Status: Former Tobacco user Quit Date: 1964 Tobacco use type: Cigarette Years Smoked: 5 YEARS Advance Directives Date on File: 02/07/23 Current occupational status: employed Current occupation: [employer] [facility] [place]ralgias and Reports joint swelling Physical Exam Vital Signs: Last Vital Signs Temp 98.3 F 03/22/23 07:55 Pulse 83 03/22/23 07:55 BP 122/70 03/22/23 07:55 Pulse Ox 97 03/22/23 07:55 Oxygen Delivery Method Room Air 03/22/23 07:55 BMI result Body Mass Index 28.1 Const General: cooperative, healthy appearing, comfortable and no acute distress Nutritional Appearance: overweight Orientation/consciousness: patient oriented x3 Limitations: no limitations HEENT Head: Yes normocephalic and Yes atraumatic Resp Effort & Inspection: normal respiratory effort and able to speak in complete sentences Skin Other: Multiple bruises with fragile skin on arms, forearms, hands and legs (chronic) Neuro General: patient oriented x3 Extrem Other: No wrist swelling or tenderness to palpation bilaterally today Left 5th PIP tenderness without swelling Normal range of motion of both shoulders Right other cranial bursa fluid filled swelling without erythema warmth or tenderness Normal range of motion of right elbow Limited range of motion of both wrists (related to old surgery) No ankle or feet swelling or pain Office Procedures Joint Injection/Drain Joint Injection/Drain Details: Right olecranon bursa Prep: site was prepped using sterile technique and ethochloride spray was applied Injected: 40 mg of, Kenalog and other (2 mL of 1% lidocaine) Procedure: The patient tolerated the procedure well Coding Details: The external aspect of the right elbow was prepped with ChloraPrep. Then using an 18 gauge needle 6 cc of bloody fluid was aspirated then injected with 40 mg of Kenalog and 2 mL of 1% lidocaine. Patient tolerated the procedure well with no acute adverse events Additional procedure code (CPT) needed (Olecranon bursa) Results Reviewed Results Reviewed: Reviewed labs from 2021 which showed negative RF and negative CCP Assessment & Plan Assessment & Plan (1) Olecranon bursitis, right elbow: Code(s): M70.21 - Olecranon bursitis, right elbow Plan: Per patient fluctuating right elbow swelling over the last 2 years. Patient has pain with right elbow pressure. Otherwise denies any elbow pain. In 2018 patient had recurrent left olecranon bursitis. Eventually he had a bursectomy. 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 Today patient does not look septic with fever. The swelling is not warm or tender. I performed arthrocentesis and sent joint fluid for cell count, Gram stain, crystals, mycobacterial and bacterial cultures. Follow-up in 1 month (2) Rheumatoid arthritis: Comment: Seronegative initially diagnosed has PMR around 2004 Was only on prednisone until 2021 when HCQ was added with little benefit MTX added 08/2022- -11/08 not particularly effective and patient developed tender skin nodule on LT forearm Enbrel 11/08-02/08 ineffective Actemra 03/11 Code(s): M06.9 - Rheumatoid arthritis, unspecified Qualifiers: Rheumatoid arthritis location: multiple sites Rheumatoid factor presence: without rheumatoid factor Qualified Code(s): M06.09 - Rheumatoid arthritis without rheumatoid factor, multiple sites Plan: This is an 83-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 Patient started taking Actemra 1 month ago with some improvement. Continue Actemra 162 mg every other week Discussed risks and benefits of Actemra. Will DC Enbrel and start Actemra 162 mg every other week. 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 Has always been on at least 10 mg of prednisone for more than 15 years. Per patient recent multiple vertebral fractures in 2021. Recently evaluated by Endocrinology and started on testosterone and Prolia (4) Long-term use of hydroxychloroquine: Code(s): Z79.899 - Other continuous churn buttermaker (current) drug therapy Plan: Discussed risk of retinopathy with hydroxychloroquine. Patient follow-up regularly with Ophthalmology Plan I spent 46 minutes reviewing patient's chart, evaluating patient, ordering diagnostic workup, counseling patient and documenting in the chart Orders: Orders Joint Fld Prof (incl Crystals) Today M70.21 - Olecranon bursitis, right elbow Joint Fld Cult + Gram stain Today M70.21 - Olecranon bursitis, right elbow Acid-fast Culture + Smear Today M70.21 - Olecranon bursitis, right elbow AMB Joint Injection/Aspiration Today M70.21 - Olecranon bursitis, right elbow Comprehensive Met. Panel 1 Month M06.9 - Rheumatoid arthritis, unspecified Cell Ct wDiff Synovial Fl Today M70.21 - Olecranon bursitis, right elbow Complete Blood Count Auto Diff 1 Month M06.9 - Rheumatoid arthritis, unspecified C Reactive Protein 1 Month M06.9 - Rheumatoid arthritis, unspecified Erythrocyte Sedimentation Rate 1 Month M06.9 - Rheumatoid arthritis, unspecified Coding Level of Care Code Est Pt Level 5 (07669) Diagnoses Olecranon bursitis, right elbow M70.21 Rheumatoid arthritis of multiple sites with negative rheumatoid factor M06.09 Rheumatoid arthritis location: multiple sites Rheumatoid factor presence: without rheumatoid factor 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
[2023-03-22 07:55] VITALS: BP 122/70; PULSE 83; TEMP 36.8; O2SAT 97; BMI 28.1
== END 2023-03-22 08:42 | disposition home or self-care (01) ==
PROVIDERS: PCP Internal Medicine; Visit Provider Student in an Organized Health Care Education/Training Program
DX: M70.21 Olecranon bursitis, right elbow (principal); M06.09 Rheumatoid arthritis without rheumatoid factor, multiple sites; M80.08XA Age-related osteoporosis with current pathological fracture, vertebra(e), initial encounter for fracture; Z79.899 Other long term (current) drug therapy
CPT/HCPCS: 99215

== ENCOUNTER 2023-03-30 10:58 | Outpatient (AMB) | payer MEDICARE, SELFPAY ==
--- NOTE | 2023-03-30 10:59 | A.OFFVIS_ITS ---
Intake Vital Signs 03/30/23 11:00 03/30/23 11:13 Height 5 ft 6 in Weight 174 lb BMI 28.1 BP 140/76 H 128/82 Blood Pressure Location Rt brachial Lt brachial Position Sitting Sitting Intake Visit Reasons: Hospital follow up Carotid stenosis Intake Note: post op Left CEA 02/15/2023. Pt states no dizziness, loss of balance or blurred vision. States prior to surgery he had loss of balance and falls, resulting in a wound on his right arm and elbow fluid that was drained by . Pt had covid last month, which is why he hasnt followed up sooner. Accompanied by: Self / Same As Patient Allergies Penicillins Allergy (Severe, Verified 03/30/23 11:06) ITCHING-SEVERE piperacillin [From Zosyn] Allergy (Mild, Verified 03/30/23 11:06) JAUNDICE tazobactam [From Zosyn] Allergy (Mild, Verified 03/30/23 11:06) JAUNDICE HPI Hospital follow up Carotid stenosis HPI Details Very pleasant 83-year-old gentleman presents for follow-up status post left carotid endarterectomy. This was done back in February 15 of this year. He had done extremely well. Postprocedure he had gone out to any the reunion and unfortunately had COVID after that. He has delayed follow-up but reports no interval issues. Feels well. Now for routine postop follow-up. Of note he is being maintained on aspirin and high-dose statin [facility] Medical History (Updated 03/30/23 @ 11:25 by Alfie Dias MD) Symptomatic stenosis of left carotid artery Non-rheumatic aortic stenosis Aortic stenosis Rheumatoid arthritis Carpal tunnel syndrome Former smoker Insulin pump in place Diabetes Elevated cholesterol CAD (coronary artery disease) HTN (hypertension) Surgical History (Updated 03/30/23 @ 11:10 by MITCH Ricardo) History of left-sided carotid endarterectomy (02/15/23) Hx of carpal tunnel repair Hx of cardiac catheterization History of shoulder surgery History of cholecystectomy History of hand surgery Hx of hemorrhoidectomy Hx of lumbar discectomy H/O colonoscopy Family History Father Heart attack Heart disease Mother Pacemaker Cataracts, bilateral Sister Heart problem Heart valve replaced Arthritis Brother Heart attack Brother Rectal cancer Sister History of modified radical mastectomy of right breast Social History Household Members: None Housing: House Are you a primary long term care pharmacist to a significant other at home: No Do you presently have visiting nurse or other home services: No Alcohol intake: former Patient Tobacco Use Status: Former Tobacco user Quit Date: 1964 Tobacco use type: Cigarette Years Smoked: 5 YEARS Advance Directives Date on File: 02/07/23 Current occupational status: employed Current occupation: [employer] Review of Systems Const All systems reviewed & are unremarkable except as noted in HPI and below Reports no additional complaints ENT Reports Normal hearing present Card Denies chest pain, Denies chest pain at rest, Denies chest pain with activity and Denies pedal edema Resp Denies cough GI Denies abdominal pain Musc Denies abnormal gait, Denies muscle cramps and Denies radiating pain into limb Skin/Breast Denies skin ulcer and Denies wounds Neuro Reports Normal hearing present and Denies abnormal gait Psych Reports no additional complaints Physical Exam Vital Signs: Last Vital Signs BP 128/82 03/30/23 11:13 BMI result Body Mass Index 28.1 Const General: cooperative, healthy appearing and comfortable Orientation/consciousness: oriented to person, oriented to place and oriented to time HEENT Head: Yes normal to inspection Neck Neck: Yes normal visual inspection Carotids: no bruits Chest Chest palpation & inspection: normal inspection of the chest Resp Effort & Inspection: normal respiratory effort and able to speak in complete sentences Auscultation: clear to auscultation bilaterally, no crackles, no rales, no rhonchi and no wheezes Cardio Rate: regular rate Rhythm: regular rhythm Heart sounds: S1 normal heart sound present and S2 normal heart sound present Bruits: no carotid bruits Peripheral pulses: Peripheral pulses 2+ throughout GI Inspection: Yes normal to inspection Skin Other: Left neck healing well incision line healing well Wounds: no wounds Hair: normal Neuro General: oriented to person, oriented to place and oriented to time Cranial nerves: Yes CN's II-XII intact bilaterally and Yes Normal hearing present Cognition (Neuro): normal cognition Motor exam (neuro): 5/5 motor strength present throughout Extrem Other: venous exam: No significant superficial varicosities or spider telangiectasias, minimal edema General: No clubbing, No cyanosis and No edema Psych Appearance: grossly normal Mental Status: mental status grossly normal Speech and movement: Normal speech and movement present Assessment & Plan Assessment & Plan (1) Bilateral carotid artery stenosis: Comment: 02/15/2023 - left carotid endarterectomy Code(s): I65.23 - Occlusion and stenosis of bilateral carotid arteries Plan: In short is doing extremely well postop. We did discuss routine risk factor modification. He will follow up with us in approximately 2 months for routine surveillance follow-up of his carotids. Thank you for allowing us to assist in his care. If there are any questions or concerns please do not hesitate to contact us. Orders: Orders US carotid duplex BI 2 Months I65.23 - Occlusion and stenosis of bilateral carotid arteries Coding Level of Care Code Global (55136) Diagnoses Bilateral carotid artery stenosis I65.23
[2023-03-30 11:00] VITALS: BP 140/76; BMI 28.1
[2023-03-30 11:13] VITALS: BP 128/82
== END 2023-03-30 11:34 | disposition home or self-care (01) ==
PROVIDERS: PCP Internal Medicine; Visit Provider Surgery Vascular Surgery
DX: I65.23 Occlusion and stenosis of bilateral carotid arteries (principal)
CPT/HCPCS: 99024

== ENCOUNTER → 2023-03-30 10:58 | Outpatient (BNVA) | payer MEDICARE, SELFPAY | PROVIDERS: PCP Internal Medicine; Visit Provider Surgery Vascular Surgery ==

== ENCOUNTER 2023-05-01 08:59 | Outpatient (REF) | payer MEDICARE, SELFPAY ==
[2023-05-01 09:15] LABS: MANUAL DIFF FLAG NO
[2023-05-01 10:25] LABS: Basophils Percent Auto 0.6 % (0-2); Eosinophils Absolute Auto 0.1 X10*3/uL (0.0-0.4); Eosinophils Percent Auto 0.9 % (0-4); Hematocrit 41.3 % (42.0-52.0); Hemoglobin 13.1 g/dl (14.0-18.0); Imm Gran Abs Auto 0.02 X10*3/uL (0.00-0.03); Imm Gran Pct Auto 0.4 % (0.0-0.4); Lymphocytes Absolute Auto 1.8 X10*3/uL (1.2-4.9); Lymphocytes Percent Auto 34.6 % (20-40); Mean Corpuscular HGB Conc 31.7 g/dl (31.0-36.0); Mean Corpuscular Hemoglobin 29.5 pg (27.0-33.0); Mean Platelet Volume 9.7 fL (9.4-12.4); Monocytes Absolute Auto 0.9 X10*3/uL (0.1-1.2); Monocytes Percent Auto 16.4 % (2-11); Neutrophils Absolute Auto 2.5 x10*3/uL (2.0-8.3); Neutrophils Percent Auto 47.1 % (45-73); Platelet Count 110 X10*3/uL (160-400); Red Blood Count 4.44 X10*6/uL (4.60-5.80); Red Cell Distribution Width 15.1 % (11.0-16.0); White Blood Count 5.3 X10*3/uL (4.8-10.8)
[2023-05-01 11:07] LABS: Alanine Aminotransferase 37 U/L (0-40); Albumin Level 3.6 g/dL (3.5-5.0); Alkaline Phosphatase 74 U/L (39-117); Anion Gap 15 (12-20); Aspartate Amino Transferase 34 U/L (5-37); Bilirubin Total 0.9 mg/dL (0.0-1.0); Blood Urea Nitrogen 23 mg/dL (9-16); C Reactive Protein < 0.04 mg/dL (< or = 0.50); Calcium 9.4 mg/dL (8.4-10.2); Carbon Dioxide 24 mmol/L (22-29); Chloride 105 mmol/L (96-108); Estimated Glomerular Filt Rate > 60; Glucose Random 160 mg/dL (60-115); Potassium 4.2 mmol/L (3.3-5.1); Sodium 140 mmol/L (135-145); Total Protein 5.6 g/dL (6.5-8.0)
[2023-05-01 11:16] LABS: Erythrocyte Sedimentation Rate 2 MM/HR (0-15)
== END 2023-05-01 09:00 | disposition home or self-care (01) ==
LOC: HO.LAB 08:59
PROVIDERS: PCP Internal Medicine; Visit Provider Student in an Organized Health Care Education/Training Program
DX: M06.9 Rheumatoid arthritis, unspecified (principal)
CPT/HCPCS: 36415; 80053; 85025; 85652; 86140

== ENCOUNTER 2023-05-02 10:10 | Outpatient (AMB) | payer MEDICARE, SELFPAY ==
[2023-05-02 10:14] VITALS: BP 118/58; PULSE 88; TEMP 36.1; O2SAT 97; BMI 27.8
--- NOTE | 2023-05-02 10:14 | A.OFFVIS_ITS ---
Intake Vital Signs 05/02/23 10:14 Height 5 ft 6 in Weight 172 lb BMI 27.8 BP 118/58 L Blood Pressure Location Rt brachial Position Sitting Pulse 88 Pulse Source Pulse Oximeter Temp 97.0 F Temp Source Skin Pulse Oximetry (%) 97 Oxygen Delivery Method Room Air Intake Visit Reasons: RA Intake Note: Pt last seen 03/22/23, presents today for follow up and test results. Allergies Penicillins Allergy (Severe, Verified 03/30/23 11:06) ITCHING-SEVERE piperacillin [From Zosyn] Allergy (Mild, Verified 03/30/23 11:06) JAUNDICE tazobactam [From Zosyn] Allergy (Mild, Verified 03/30/23 11:06) JAUNDICE Medication List - Last Reconciled 05/02/23 by Marisela Neil MD acetaminophen ER (Tylenol 8 Hour) 650 mg PO Q8H PRN amlodipine 2.5 mg PO DAILY aspirin 81 mg PO DAILY atorvastatin 80 mg PO DAILY calcium citrate 1,600 mg PO BID cholecalciferol (vitamin D3) 50 mcg PO BID citalopram 20 mg PO DAILY cyclobenzaprine 10 mg PO DAILY gabapentin 600 mg PO TID hydroxychloroquine 200 mg PO DAILY [Novolog U-100 Insulin aspart 80 multiple units subcut (via wearable injectr) DAILY] omeprazole 20 mg PO BID pilocarpine HCl (Salagen (pilocarpine)) 5 mg PO BID prednisone 10 mg PO DAILY tamsulosin 0.4 mg PO BEDTIME tocilizumab (Actemra ACTPen) 162 mg subcut Q2W vitamins A,C,N-nmov-mwqcgj 4,296 mcg-226 mg-90 mg (PreserVision AREDS) 1 cap PO BID HPI HPI Comments History of Present Illness Details 83-year-old male with seronegative erosi ve RA presents for follow-up. Patient states that he is doing well overall in terms of his joint pain and stiffness. On Actemra every other week and prednisone 10 mg daily. States that the right elbow swelling resolved after injection last visit. States that he gets lightheaded when he stands up for some time. Knees are stiff when he tries to get up from the floor. Initial history: This is an 82[facility] past medical history including diabetes mellitus on insulin pump, dyslipidemia, CAD, PMR, rheumatoid arthritis who presents for evaluation of rheumatoid arthritis. His previous chief environmental commitment officer left the practice. Patient stated he was diagnosed with PMR more than [address] Nichole, he stated that he was started on prednisone 20 mg which would be tapered down to 10 mg and as soon as he is on lower than 10 mg he starts flaring with diffuse joint pain. He then followed with Dr. alfaro and most recently with Gisselle Taylor. Patient has had numerous surgeries due to his rheumatoid arthritis, he states that his carpal bones are fused bilaterally, he also had right wrist surgery, he has SLAP repair surgery for his left shoulder and rotator cuff repair for his right shoulder. He also had a bursectomy for his left elbow. He was started on hydroxychloroquine a few months ago by Gisselle Taylor and he is not sure if it is helping. He also has history of osteoporosis complicated by multiple vertebral fractures in 2021 which were quite painful. He was started on Fosamax once weekly by Gisselle Taylor. About a month ago he had a flare up of diffuse joint pain that was attributed to Fosamax. Since then Fosamax had been stopped. Prednisone was increased back to 15 mg by his PCP. He states that he had a flare-up affecting his wrists, elbows, shoulders and left knee. His pain has improved but he continues to have left knee pain for the last 2-3 weeks. Continues to have chronic low back pain nonradiating. He recently had intermittent chest pain and was evaluated by his polystyrene molding machine tender and referred for a stress test. [facility] Medical History (Updated 05/02/23 @ 10:55 by Marisela Neil MD) Symptomatic stenosis of left carotid artery Non-rheumatic aortic stenosis Aortic stenosis Rheumatoid arthritis Carpal tunnel syndrome Former smoker Insulin pump in place Diabetes Elevated cholesterol CAD (coronary artery disease) HTN (hypertension) Surgical History History of left-sided carotid endarterectomy (02/15/23) Hx of carpal tunnel repair Hx of cardiac catheterization History of shoulder surgery History of cholecystectomy History of hand surgery Hx of hemorrhoidectomy Hx of lumbar discectomy H/O colonoscopy Family History Father Heart attack Heart disease Mother Pacemaker Cataracts, bilateral Sister Heart problem Heart valve replaced Arthritis Brother Heart attack Brother Rectal cancer Sister History of modified radical mastectomy of right breast Social History Household Members: None Housing: House Are you a primary rn intensive care unit to a significant other at home: No Do you presently have visiting nurse or other home services: No Alcohol intake: former Patient Tobacco Use Status: Former Tobacco user Quit Date: 1962 Tobacco use type: Cigarette Years Smoked: 5 YEARS Advance Directives Date on File: 02/07/23 Current occupational status: employed Current occupation: [employer] Review of Systems Card Details: Lightheadedness Musc Reports stiffness Physical Exam Vital Signs: Last Vital Signs Temp 97.0 F 05/02/23 10:14 Pulse 88 05/02/23 10:14 BP 118/58 L 05/02/23 10:14 Pulse Ox 97 05/02/23 10:14 Oxygen Delivery Method Room Air 05/02/23 10:14 BMI result Body Mass Index 27.8 Const General: cooperative, healthy appearing, comfortable and no acute distress Nutritional Appearance: overweight Orientation/consciousness: patient oriented x3 Limitations: no limitations HEENT Head: Yes normocephalic and Yes atraumatic Resp Effort & Inspection: normal respiratory effort and able to speak in complete sentences Cardio Heart sounds: Murmur heart sound present systolic Skin Other: Multiple bruises with fragile skin on arms, forearms, hands and legs (chronic) Neuro General: patient oriented x3 Extrem Other: Minimal left wrist tenderness to palpation Normal range of motion of both shoulders Right olecranon bursitis resolved Normal range of motion of both knees without pain Limited range of motion of both wrists (related to old surgery) No ankle or feet swelling or pain Results Reviewed Results Reviewed: Reviewed labs from 2021 which showed negative RF and negative CCP Assessment & Plan Assessment & Plan (1) Olecranon bursitis, right elbow: Code(s): M70.21 - Olecranon bursitis, right elbow Plan: Per patient fluctuating right elbow swelling over the last 2 years. Patient has pain with right elbow pressure. Otherwise denies any elbow pain. In 2019 patient had recurrent left olecranon bursitis. Eventually he had a bursectomy. 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 Last visit right leg strain or bursitis was aspirated and injected with Kenalog. It showed 2600 WBCs with 100% lymphocytes. Bacterial cultures are negative, with no crystals. Mycobacterium acid-fast smear is negative but cultures are still pending. Today his right elbow swelling resolved (2) Rheumatoid arthritis: Comment: Seronegative initially diagnosed has PMR around 2004 Was only on prednisone until 2021 when HCQ was added with little benefit MTX added 08/2022- -11/08 not particularly effective and patient developed tender skin nodule on LT forearm Enbrel 11/08-02/08 ineffective Actemra 03/11 effective Code(s): M06.9 - Rheumatoid arthritis, unspecified Qualifiers: Rheumatoid arthritis location: multiple sites Rheumatoid factor presence: without rheumatoid factor Qualified Code(s): M06.09 - Rheumatoid arthritis without rheumatoid factor, multiple sites Plan: This is an 83-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 On Actemra 162 mg every other week since 02/2023 with good results. Still on prednisone 10 mg daily Continue Actemra 162 mg every other week Will start tapering prednisone. Will reduce by 1 mg every 2 weeks. Start 9 mg tomorrow for 2 weeks then reduce by 1 mg every 2 weeks Continue hydroxychloroquine 200 mg daily Patient has mild thrombocytopenia 110. Will monitor closely. 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 Has always been on at least 10 mg of prednisone for more than 15 years. Per patient recent multiple vertebral fractures in 2021. he was evaluated by Endocrinology and started on testosterone and Prolia (4) Long-term use of hydroxychloroquine: Code(s): Z79.899 - Other assisted (current) drug therapy Plan: Patient follow-up regularly with Ophthalmology (5) Numbness of finger: Code(s): R20.0 - Anesthesia of skin Plan: Left 5th finger numbness. Check bilateral upper extremity EMG/NCS (6) Immunization counseling: Code(s): Z71.85 - Encounter for immunization safety counseling Plan: Discussed ACR vaccination guidelines for adult with autoimmune rheumatic disease on immune suppression. Patient received the flu vaccine & new COVID booster. He is up-to-date Plan I spent 46 minutes reviewing patient's chart, evaluating patient, ordering diagnostic workup, counseling patient and documenting in the chart Orders: Orders Erythrocyte Sedimentation Rate 10 Weeks M06.9 - Rheumatoid arthritis, unspecified C Reactive Protein 10 Weeks M06.9 - Rheumatoid arthritis, unspecified Complete Blood Count Auto Diff 4 Weeks Z79.631 - termination clerk (current) use of antimetabolite agent Comprehensive Met. Panel 4 Weeks Z79.631 - termination clerk (current) use of antimetabolite agent C Reactive Protein 4 Weeks Z79.631 - termination clerk (current) use of antimetabolite agent Erythrocyte Sedimentation Rate 4 Weeks Z79.631 - intermediate (current) use of antimetabolite agent NE electromyogram (EMG) Today G56.23 - Lesion of ulnar nerve, bilateral upper limbs Complete Blood Count Auto Diff 10 Weeks M06.9 - Rheumatoid arthritis, unspecified Comprehensive Met. Panel 10 Weeks M06.9 - Rheumatoid arthritis, unspecified Medications: New prednisone Use a combination of prednisone 5 mg tabs and prednisone 1 mg tabs to take 9 mg daily for 2 weeks then reduce by 1 mg daily every 2 weeks 90 tabs 0RF prednisone Use a combination of 5 mg tabs and 1 mg tabs to take 9 mg daily for 2 weeks then reduce by 1 mg every 2 weeks 140 tabs 0RF Discontinued prednisone Discontinued Reason: Doctor's Order 10 mg PO DAILY 90 tabs 0RF M06.09 - Rheumatoid arthritis without rheumatoid factor, multiple sites Coding Level of Care Code Est Pt Level 5 (82453) Diagnoses Olecranon bursitis, right elbow M70.21 Rheumatoid arthritis of multiple sites with negative rheumatoid factor M06.09 Rheumatoid arthritis location: multiple sites Rheumatoid factor presence: without rheumatoid factor 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 Numbness of finger R20.0 Immunization counseling Z71.85
== END 2023-05-02 10:43 | disposition home or self-care (01) ==
PROVIDERS: PCP Internal Medicine; Visit Provider Student in an Organized Health Care Education/Training Program
DX: M80.08XA Age-related osteoporosis with current pathological fracture, vertebra(e), initial encounter for fracture (principal); M06.09 Rheumatoid arthritis without rheumatoid factor, multiple sites; M70.21 Olecranon bursitis, right elbow; Z79.899 Other long term (current) drug therapy; R20.0 Anesthesia of skin; Z71.85 Encounter for immunization safety counseling
CPT/HCPCS: 99215

== ENCOUNTER → 2023-05-02 10:10 | Outpatient (BNVA) | payer MEDICARE, SELFPAY | PROVIDERS: PCP Internal Medicine; Visit Provider Student in an Organized Health Care Education/Training Program | DX: M06.09 Rheumatoid arthritis without rheumatoid factor, multiple sites (principal); M80.08XA Age-related osteoporosis with current pathological fracture, vertebra(e), initial encounter for fracture; R20.0 Anesthesia of skin; M70.21 Olecranon bursitis, right elbow; Z79.899 Other long term (current) drug therapy; Z71.85 Encounter for immunization safety counseling | CPT/HCPCS: 99212 ==

== ENCOUNTER 2023-05-25 09:51 | Outpatient (REF) | payer MEDICARE, SELFPAY ==
--- NOTE | 2023-05-25 09:53 | EMG_ITS ---
The left median and ulnar motor and sensory studies were performed. Left radial sensory study was performed and paraspinal muscles were tested with a needle. IMPRESSION: 1. 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 2. 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 MD NAVEEN Diane/DAVINA / [phone]
== END 2023-05-25 09:52 | disposition home or self-care (01) ==
LOC: HO.NEURO 09:51
PROVIDERS: PCP Internal Medicine; Visit Provider Student in an Organized Health Care Education/Training Program
DX: G56.23 Lesion of ulnar nerve, bilateral upper limbs (principal)
CPT/HCPCS: 95886; 95909

== ENCOUNTER 2023-05-30 12:26 | Outpatient (REF) | payer MEDICARE, SELFPAY ==
--- NOTE | ~2023-05-30 | US_ITS ---
EXAMINATION: US EXTRACRANIAL CAROTID DUPLEX, BILATERAL CLINICAL INFORMATION: Occlusion and stenosis bilateral carotid arteries. COMPARISON: None available. TECHNIQUE: Real-time ultrasound and Doppler techniques (integrating B-mode 2-D vascular images, Doppler spectral analysis and color-flow Doppler imaging) were utilized to interrogate the extracranial carotid arteries, the vertebral arteries and proximal subclavian arteries bilaterally. The degree of stenosis is determined by criteria similar to NASCET. FINDINGS: Right Side: 1. There is moderate atherosclerotic plaque seen in the bifurcation/proximal ICA region. 2. The common carotid artery PSV proximally is 133 cm/s and distally 80 cm/s. 3. The proximal internal carotid artery velocities are 140 cm/s systolic and 23 cm/s diastolic. 4. The proximal external carotid artery PSV is 117 cm/s. 5. The vertebral artery shows antegrade flow. 6. The subclavian artery waveforms are normal. Left Side: 1. There is none atherosclerotic plaque seen in the bifurcation/proximal ICA region. 2. The common carotid artery PSV proximally is 127 cm/s and distally 119 cm/s. 3. The proximal internal carotid artery velocities are 103 cm/s systolic and 26 cm/s diastolic. 4. The proximal external carotid artery PSV is 90 cm/s. 5. The vertebral artery shows antegrade flow. 6. The subclavian artery waveforms are normal. US/US carotid duplex BI IMPRESSION: 1. RIGHT: Minimal, non-hemodynamically significant stenosis of the proximal right internal carotid artery corresponding to a 0-49% stenosis by velocity criteria. 2. LEFT: Normal left internal carotid artery without atherosclerotic plaque or hemodynamically significant stenosis.
== END 2023-05-30 12:27 | disposition home or self-care (01) ==
LOC: HO.US 12:26
PROVIDERS: PCP Internal Medicine; Visit Provider Surgery Vascular Surgery
DX: I65.23 Occlusion and stenosis of bilateral carotid arteries (principal)
CPT/HCPCS: 93880

== ENCOUNTER 2023-06-01 22:54 | Observation (INO) | payer MEDICARE, SELFPAY ==
--- NOTE | 2023-06-01 | ECG_ITS ---
Test Reason : SYNCOPE Blood Pressure : / mmHG Vent. Rate : 080 BPM Atrial Rate : 080 BPM P-R Int : 172 ms QRS Dur : 126 ms QT Int : 436 ms P-R-T Axes : 016 -43 053 degrees QTc Int : 502 ms Normal sinus rhythm Left axis deviation Left ventricular hypertrophy with QRS widening and repolarization abnormality ( R in aVL , Sergey product , Romhilt-Cardoza ) Abnormal ECG When compared with ECG of 07-FEB-2023 09:45, No significant change was found Referred By: Generic ED Physician Electronically Signed By:Jimmy Grimes
--- NOTE | ~2023-06-01 | CT_ITS ---
EXAMINATION: CT head/brain wo IV con, CT cervical spine wo IV con INDICATION INFORMATION: Reason for Exam fall, LOC COMPARISON: CTA head and neck the 02/07/2023 TECHNIQUE: Separate noncontrast CT examinations of the head and cervical spine were performed. Coronal and sagittal images were created for each examination at the technologist workstation. This CT examination was performed using dose optimization techniques as appropriate, variously including the following: *Automated exposure control *Adjustment of mA and/or kV according to patient size (this includes techniques or standardized protocols for targeted exams where dose is matched to indication/reason for exam; i.e. extremities or head) *Use of iterative reconstruction technique DLP: 1110.6 mGy-cm FINDINGS: Head: No acute osseous or soft tissue abnormality. Visualized paranasal sinuses are clear. Small left mastoid fluid. There is no evidence of acute intracranial hemorrhage or territorial infarction. No abnormal mass effect or midline shift is seen. Wang to white matter differentiation is well preserved. No extra-axial fluid collections are identified. No hydrocephalus. Proportional prominence of the ventricles and sulcal spaces is consistent with mild volume loss. Patchy periventricular and deep white matter hypoattenuation is consistent with mild small vessel ischemic changes. Chronic left basal ganglia lacunar infarct. Cervical spine: There is no evidence of acute cervical spine fracture. Vertebral bodies remain normal in height. Cervical straightening. Trace retrolisthesis of C3 on C4 and trace anterolisthesis of C4 on C5. Moderate multilevel cervical spondylosis. No pre- or paravertebral soft tissue abnormality is identified. Visualized portions of the lung apices are unremarkable. The thyroid gland is unremarkable. CT/CT cervical spine wo IV con IMPRESSION: 1. No acute intracranial abnormality. 2. No cervical spine fracture or traumatic malalignment.
[2023-06-01 23:03] VITALS: BP 219/99; BP 220/110; PULSE 80; RESP 16; TEMP 36.6; O2SAT 93; BMI 29.1
[2023-06-01 23:36] VITALS: BP 184/96
--- NOTE | 2023-06-01 23:44 | ED_ITS ---
HPI - General Adult General Chief complaint: Fall Stated complaint: SYNCOPAL EPISODE,HYPERTENSIVE,LIGHTHEADED Time Seen by Provider: 06/01/23 23:25 Source: patient Mode of arrival: EMS Limitations: no limitations History of Present Illness HPI narrative: Patient comes to the emergency room via ambulance from home. Earlier today, patient was working on some home projects, patient fell off a ladder backwards, hit the back of his head and the back of his neck. Patient states that he is not sure if he lost consciousness. Patient denies being on blood thinners, patient takes daily prednisone for polymyalgia rheumatica. However, patient was able to get up and continue with his day. Then, a few hours later, when patient was checking the battery of his insulin pump, patient suddenly passed out. Patient states that he did not have any chest pain or shortness of breath. Patient woke up on the floor. Patient did not have any chest pain or shortness of breath. However, patient did check his blood pressure and it was above 200 systolic. Patient checked his blood pressure multiple times, all readings above 200. Patient states that he is compliant with his blood pressure medications. At this time, patient states that he has very mild neck pain, mild headache, no chest pain or shortness of breath. 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 Patient is 6 weeks status post carotid endarterectomy, which was done here. Related Data Home Medications Medication Instructions Recorded Confirmed Novolog U-100 Insulin aspart 80 units subcut (via wearable 06/01/20 02/15/23 injectr) DAILY tamsulosin 0.4 mg capsule 0.4 mg PO BEDTIME 06/24/22 02/15/23 vitamins A,C,[id number] 4,296 1 cap PO BID 06/24/22 02/15/23 mcg-226 mg-90 mg capsule (PreserVision AREDS) acetaminophen 650 mg 650 mg PO Q8H PRN Pain 09/06/22 02/15/23 tablet,extended release (Tylenol 8 Hour) amlodipine 2.5 mg tablet 2.5 mg PO DAILY 09/06/22 02/15/23 citalopram 20 mg tablet 20 mg PO DAILY 09/06/22 02/15/23 cyclobenzaprine 10 mg tablet 10 mg PO DAILY 09/06/22 02/15/23 gabapentin 600 mg tablet 600 mg PO TID 09/06/22 02/15/23 cholecalciferol (vitamin D3) 50 50 mcg PO BID 11/21/22 02/15/23 mcg (2,000 unit) capsule calcium citrate 200 mg (950 mg) 1,600 mg PO BID 12/24/22 02/15/23 tablet pilocarpine HCl 5 mg tablet 5 mg PO BID 02/15/23 02/15/23 (Salagen (pilocarpine)) Previous Rx's Medication Instructions Recorded aspirin 81 mg tablet,delayed 81 mg PO DAILY #90 tabs 02/10/23 release atorvastatin 80 mg tablet 80 mg PO DAILY #90 tabs 02/10/23 hydroxychloroquine 200 mg tablet 200 mg PO DAILY #90 tabs 02/10/23 omeprazole 20 mg capsule,delayed 20 mg PO BID #180 caps 03/28/23 release prednisone 1 mg tablet See Rx Instructions PO .COMPLEX 05/02/23 #140 tabs prednisone 5 mg tablet See Rx Instructions PO .COMPLEX 05/02/23 #90 tabs docusate sodium 100 mg capsule 100 mg PO BID #60 caps 05/15/23 (Colace) polyethylene glycol 3350 17 17 g PO DAILY #510 grams 05/15/23 gram/dose oral powder (Miralax) tocilizumab 162 mg/0.9 mL 162 mg (0.9 mL) subcut Q2W #0.9 mL 05/15/23 subcutaneous pen injector (Actemra ACTPen) Allergies Allergy/AdvReac Type Severity Reaction Status Date / Time Penicillins Allergy Severe ITCHING-SEV Verified 06/01/23 23:02 ERE piperacillin [From Zosyn] Allergy Mild JAUNDICE Verified 06/01/23 23:02 tazobactam [From Zosyn] Allergy Mild JAUNDICE Verified 06/01/23 23:02 Review of Systems 2 Review of Systems: Constitutional : No Weight loss, No Fever, No Chills, No Night Sweats, No Fatigue, No Malaise ENT/Mouth : No Hearing loss, No Ear Pain, No Nasal Congestion, No Sinus Pain, No Hoarseness, No sore throat, No Rhinorrhea, No Swallowing Difficulty Eyes: No Eye Pain, No Swelling, No Redness, No Foreign Body, No Discharge, No Vision Changes Cardiovascular : No Chest Pain, No SOB, No Dyspnea on Exertion, No Orthopnea, No Edema, No Palpitations Respiratory : No Cough, No Sputum, No Wheezing, No Smoke Exposure, No Dyspnea Gastrointestinal : No Nausea, No Vomiting, No Diarrhea, No Constipation, No abdominal Pain, No Hematochezia, No Melena Genitourinary : no irregular bleeding, No Dysuria, No Urinary Frequency, No Hematuria, No Urinary Incontinence, No Urgency, No Flank Pain, No Urinary Flow Changes, No Hesitancy Musculoskeletal : No joint pain, No Myalgias, No Joint Swelling Skin : No Skin Lesions, No rash Neuro : No Weakness, No Numbness, No Paresthesias, complaining of a syncopal episode, No Dizziness, mild Headache Psych : No Anxiety/Panic, No Depression, No SI/HI/AH/VH, No Social Issues, Heme/Lymph: No Bruising, No Bleeding,No Lymphadenopathy Endocrine : No Polyuria, No Polydipsia, No Temperature Intolerance PMFSH Past Medical History Medical History Symptomatic stenosis of left carotid artery Non-rheumatic aortic stenosis Aortic stenosis Rheumatoid arthritis Carpal tunnel syndrome Former smoker Insulin pump in place Diabetes Elevated cholesterol CAD (coronary artery disease) HTN (hypertension) Surgical History History of left-sided carotid endarterectomy (02/15/23) Hx of carpal tunnel repair Hx of cardiac catheterization History of shoulder surgery History of cholecystectomy History of hand surgery Hx of hemorrhoidectomy Hx of lumbar discectomy H/O colonoscopy Family History Family History Father Heart attack Heart disease Mother Pacemaker Cataracts, bilateral Sister Heart problem Heart valve replaced Arthritis Brother Heart attack Brother Rectal cancer Sister History of modified radical mastectomy of right breast Social History Social History Household Members: None Housing: House Are you a primary direct care staffer to a significant other at home: No Do you presently have visiting nurse or other home services: No Alcohol intake: former Patient Tobacco Use Status: Former Tobacco user Quit Date: 1964 Tobacco use type: Cigarette Years Smoked: 5 YEARS Smoked in Last 30 Days: No Use of substances other than those prescribed or required for medical reasons: No Advance Directives: Yes Advance Directives on File: Yes Advance Directives Date on File: 02/07/23 Current occupational status: employed Current occupation: [employer] Physical Exam ED Vital Signs: Vital Signs - 24 hr 06/01/23 23:03 06/01/23 23:36 06/02/23 00:06 Temperature 97.8 F Pulse Rate 80 77 Respiratory Rate 16 Blood Pressure 219/99 H 184/96 H 193/95 H Pulse Oximetry 93 Oxygen Delivery Method Room Air 06/02/23 00:06 06/02/23 00:08 06/02/23 01:09 Temperature 97.7 F Pulse Rate 81 80 73 Respiratory Rate 20 Blood Pressure 157/85 H 161/82 H 185/91 H Pulse Oximetry 96 Oxygen Delivery Method Room Air BMI result Body Mass Index 29.1 Const Other: Appearance: Alert. Oriented X3. No acute distress. Eyes: Pupils equal, round and reactive to light. ENT: Pharynx normal. Neck: Normal inspection. Neck supple. No lymph nodes noted. No crepitus CVS: Normal heart rate and rhythm. Pulses normal. Plus three 3 systolic murmur in the right sternal border. Respiratory: No respiratory distress. Breath sounds normal. No Wheezing. No rales Abdomen: Soft and nontender. No rigidity. No distention. Skin: Skin warm and dry. Normal skin color. Normal skin turgor. Extremities: No lower extremity edema. No Lacerations. No Rash Neuro: Oriented X 3. No motor deficit. No sensory deficit. Moving all extremities. No slurred speech. CN 2 through 12 grossly intact Psych: calm, cooperative, normal affect Course Course Course Narrative: -all of patient's labs are pending -my interpretation of EKG: Normal sinus rhythm, heart rate 80, no ST segment depression or elevation, no T-wave inversion, QTC 502 -I discussed with the patient he has significant cardiac risk, especially with history of aortic stenosis borderline to being a candidate for aortic valve replacement, recent history of endarterectomy and syncope today. I discussed with him that I recommend admission , even if his labs turned out to be normal Medical Decision Making Medical Decision Making MDM Narrative: -my interpretation a head CT: No intracranial bleed -my interpretation of labs, normal/baseline hematology, D-dimer negative, chemistry within normal limits, BNP and troponin negative -I discussed the patient with Dr. Pollock Differential Diagnosis Differential Diagnoses: The differential diagnosis associated with the presentation includes (Pulmonary embolism, aortic stenosis, coronary artery disease, mi, orthostatic hypotension, intracranial bleed) Admission/Observation Consideration of admission/observation: Escalation of care including admission/observation considered (Given patient's present patient and past medical history, admission was considered) Consult Healthcare Provider Management of the patient was discussed with: Hospitalist Lab Data 06/01/23 23:43 06/01/23 23:43 Labs: Lab Results 06/01/23 06/01/23 Range/Units 23:38 23:43 WBC 4.9 (4.8-10.8) X10*3/uL RBC 4.53 L (4.60-5.80) X10*6/uL Hgb 13.3 L (14.0-18.0) g/dl Hct 41.0 L (42.0-52.0) % MCV 90.5 (80.0-98.0) fL MCH 29.4 (27.0-33.0) pg MCHC 32.4 (31.0-36.0) g/dl RDW 14.6 (11.0-16.0) % Plt Count 143 L D (160-400) X10*3/uL MPV 8.7 L (9.4-12.4) fL Immature Gran % (Auto) 0.2 (0.0-0.4) % Neut % (Auto) 44.7 L (45-73) % Lymph % (Auto) 28.2 (20-40) % [place] % (Auto) 24.5 H (2-11) % Eos % (Auto) 1.6 (0-4) % Baso % (Auto) 0.8 (0-2) % Lymph # (Auto) 1.4 (1.2-4.9) X10*3/uL [place] # (Auto) 1.2 (0.1-1.2) X10*3/uL Eos # (Auto) 0.1 (0.0-0.4) X10*3/uL Baso # (Auto) 0.0 (0.0-0.2) X10*3/uL Abs Immat Gran (auto) 0.01 (0.00-0.03) X10*3/uL Absolute Neuts (auto) 2.2 (2.0-8.3) x10*3/uL Absolute Nucleated RBC 0.000 (0.0-0.012) X10*3/uL Nucleated RBC % (auto) 0.0 (0.0-0.2) /100WBC Smear Tech's Comments VERIFIED PT 10.7 L (11.1-13.3) SEC INR 0.9 (0.9-1.1) D-Dimer High Sensitivty 205 NG/ML Sodium 143 (135-145) mmol/L Potassium 3.5 (3.3-5.1) mmol/L Chloride 105 (96-108) mmol/L Carbon Dioxide 26 (22-29) mmol/L Anion Gap 16 (12-20) BUN 16 (9-16) mg/dL Creatinine 0.85 (0.5-1.4) mg/dL Estim Creat Clear Calc 65.9 Estimated GFR > 60 Random Glucose 92 (60-115) mg/dL Calcium 9.3 (8.4-10.2) mg/dL Total Bilirubin 0.9 (0.0-1.0) mg/dL Direct Bilirubin 0.4 (0.0-0.5) mg/dL AST 41 H (5-37) U/L ALT 34 (0-40) U/L Alkaline Phosphatase 104 (39-117) U/L Troponin I High Sens 16.1 (<3.5-35.0) ng/L B-Natriuretic Peptide 78 (<100) pg/mL Total Protein 6.1 L (6.5-8.0) g/dL Albumin 4.2 (3.5-5.0) g/dL Urine Color Yellow Urine Appearance Clear Urine pH 6.5 (5.0-9.0) Ur Specific [place] <= 1.005 (1.005-1.025) Urine Protein Negative (Neg-Trace) mg/dL Urine Glucose (UA) Negative (Negative) mg/dL Urine Ketones Negative (Negative) mg/dL Urine Blood Negative (Negative) Urine Nitrite Negative (Negative) Ur Leukocyte Esterase Moderate (2+) H (Negative) Urine RBC 0-2 (0-2) /HPF Urine WBC 21-50 H (0-5) /HPF Ur Squamous Epith Cells 0-2 (0-2) /HPF Urine Bacteria 4+ (None Seen) Hyaline Casts 0-2 (0-2) /LPF Independent Interpretation I performed an independent interpretation of an: CT Scan Radiology Impression Discussion of test interpretation with radiology: I have reviewed the radiologist's reading. Radiologist Impression: Head: No acute osseous or soft tissue abnormality. Visualized paranasal sinuses are clear. Small left mastoid fluid. There is no evidence of acute intracranial hemorrhage or territorial infarction. No abnormal mass effect or midline shift is seen. Wang to white matter differentiation is well preserved. No extra-axial fluid collections are identified. No hydrocephalus. Proportional prominence of the ventricles and sulcal spaces is consistent with mild volume loss. Patchy periventricular and deep white matter hypoattenuation is consistent with mild small vessel ischemic changes. Chronic left basal ganglia lacunar infarct. Cervical spine: There is no evidence of acute cervical spine fracture. Vertebral bodies remain normal in height. Cervical straightening. Trace retrolisthesis of C3 on C4 and trace anterolisthesis of C4 on C5. Moderate multilevel cervical spondylosis. No pre- or paravertebral soft tissue abnormality is identified. Visualized portions of the lung apices are unremarkable. The thyroid gland is unremarkable. CT/CT head/brain wo IV con IMPRESSION: 1. No acute intracranial abnormality. 2. No cervical spine fracture or traumatic malalignment. Scores Heart Score History: -1- moderately suspicious ECG: -0- normal Age: -2- > or = 65 Risk factory: -2- 3 or more risk factors or treated atherosclerosis Troponin: -0- < or = normal limit Score: 5 Risk: 16.6% Discharge Plan Discharge Clinical Impression: Syncope, Orthostatic hypotension Patient Disposition: Admitted As Inpatient Prescriptions: No Action hydroxychloroquine 200 mg tablet 200 mg PO DAILY Qty: 90 1RF omeprazole 20 mg capsule,delayed release(DR/EC) 20 mg PO BID Qty: 180 10RF docusate sodium [Colace] 100 mg capsule 100 mg PO BID Qty: 60 1RF polyethylene glycol 3350 [Miralax] 17 gram/dose powder 17 g PO DAILY Qty: 510 0RF Actemra ACTPen 162 mg/0.9 mL pen injector 162 mg subcut Q2W Qty: 0.9 0RF Novolog U-100 Insulin aspart 80 units subcut (via wearable injectr) DAILY Rx Instructions: via TANDEM insulin pump gabapentin 600 mg tablet 600 mg PO TID calcium citrate 200 mg (950 mg) Tablet 1,600 mg PO BID atorvastatin 80 mg Tablet 80 mg PO DAILY Qty: 90 0RF aspirin 81 mg Tablet,Delayed Release (Dr/Ec) 81 mg PO DAILY Qty: 90 0RF pilocarpine HCl [Salagen (pilocarpine)] 5 mg tablet 5 mg PO BID citalopram 20 mg tablet 20 mg PO DAILY PreserVision AREDS [id number] capsule 1 cap PO BID tamsulosin 0.4 mg capsule 0.4 mg PO BEDTIME amlodipine 2.5 mg tablet 2.5 mg PO DAILY cyclobenzaprine 10 mg tablet 10 mg PO DAILY acetaminophen [Tylenol 8 Hour] 650 mg tablet extended release 650 mg PO Q8H PRN (Reason: Pain) prednisone 5 mg tablet See Rx Instructions PO .COMPLEX Qty: 90 0RF Rx Instructions: Use a combination of prednisone 5 mg tabs and prednisone 1 mg tabs to take 9 mg daily for 2 weeks then reduce by 1 mg daily every 2 weeks prednisone 1 mg tablet See Rx Instructions PO .COMPLEX Qty: 140 0RF Rx Instructions: Use a combination of 5 mg tabs and 1 mg tabs to take 9 mg daily for 2 weeks then reduce by 1 mg every 2 weeks cholecalciferol (vitamin D3) 50 mcg (2,000 unit) capsule 50 mcg PO BID
[2023-06-01 23:51] LABS: Basophils Percent Auto 0.8 % (0-2); Eosinophils Absolute Auto 0.1 X10*3/uL (0.0-0.4); Eosinophils Percent Auto 1.6 % (0-4); Hemoglobin 13.3 g/dl (14.0-18.0); Imm Gran Abs Auto 0.01 X10*3/uL (0.00-0.03); Imm Gran Pct Auto 0.2 % (0.0-0.4); Lymphocytes Absolute Auto 1.4 X10*3/uL (1.2-4.9); Lymphocytes Percent Auto 28.2 % (20-40); MANUAL DIFF FLAG SCAN; Mean Corpuscular HGB Conc 32.4 g/dl (31.0-36.0); Mean Corpuscular Hemoglobin 29.4 pg (27.0-33.0); Mean Corpuscular Volume 90.5 fL (80.0-98.0); Mean Platelet Volume 8.7 fL (9.4-12.4); Monocytes Absolute Auto 1.2 X10*3/uL (0.1-1.2); Monocytes Percent Auto 24.5 % (2-11); Neutrophils Absolute Auto 2.2 x10*3/uL (2.0-8.3); Neutrophils Percent Auto 44.7 % (45-73); Platelet Count 143 X10*3/uL (160-400); Red Blood Count 4.53 X10*6/uL (4.60-5.80); Red Cell Distribution Width 14.6 % (11.0-16.0); SCAN SMEAR FLAG 1; White Blood Count 4.9 X10*3/uL (4.8-10.8)
[2023-06-01 23:53] LABS: Appearance Urine Clear; Color Urine Yellow; Glucose Urine UA Negative (Negative); Leukocyte Esterase Urine Moderate (2+) (Negative); Nitrite Urine Negative (Negative); PH 6.5 (5.0-9.0); Specific Gravity - Urine <= 1.005 (1.005-1.025); UMIC TRIGGER UACC YES; Urine Blood Negative (Negative); Urine Ketones Negative (Negative); Urine Protein Negative (Neg-Trace)
[2023-06-01 23:55] LABS: Bacteria Urine 4+ (None Seen); Hyaline Casts Urine 0-2 /LPF (0-2); RBC Urine 0-2 /HPF (0-2); Squamous Epithelial Cell Urine 0-2 /HPF (0-2); UACC Culture Trigger YES; WBC Urine 21-50 /HPF (0-5)
[2023-06-02] VITALS (12 sets, daily range): BP systolic 128–205; BP diastolic 73–96; PULSE 70–81; RESP 17–20; TEMP 36.1–36.5; O2SAT 94–98
[2023-06-02 00:06] LABS: D Dimer High Sensitivity 205 NG/ML
[2023-06-02 00:07] LABS: Alanine Aminotransferase 34 U/L (0-40); Albumin Level 4.2 g/dL (3.5-5.0); Alkaline Phosphatase 104 U/L (39-117); Anion Gap 16 (12-20); Aspartate Amino Transferase 41 U/L (5-37); Bilirubin Direct 0.4 mg/dL (0.0-0.5); Bilirubin Total 0.9 mg/dL (0.0-1.0); Blood Urea Nitrogen 16 mg/dL (9-16); Calcium 9.3 mg/dL (8.4-10.2); Carbon Dioxide 26 mmol/L (22-29); Chloride 105 mmol/L (96-108); Creatinine Clr Calc Pharmacy 65.9; Estimated Glomerular Filt Rate > 60; Glucose Random 92 mg/dL (60-115); Potassium 3.5 mmol/L (3.3-5.1); Sodium 143 mmol/L (135-145); Total Protein 6.1 g/dL (6.5-8.0)
[2023-06-02 00:08] LABS: INTERNATIONAL NORM RATIO 0.9 (0.9-1.1); Prothrombin Time 10.7 SEC (11.1-13.3)
[2023-06-02 00:11] LABS: SLIDE REVIEW VERIFIED
[2023-06-02 00:14] LABS: Troponin-I High Sensitivity 16.1 ng/L (<3.5-35.0)
[2023-06-02 00:45] LABS: B Type Natriuretic Peptide 78 pg/mL (<100)
[2023-06-02] MEDS: 0.9 % Sodium Chloride 1,000 ML 100 ML IVCONT (01:52)
--- NOTE | 2023-06-02 02:03 | PC.NURSE ---
hospitalist at bedside discussing pt care.
--- NOTE | 2023-06-02 02:04 | PC.NURSE ---
late entry- pt biba from home reporting a syncope episode after bending over to parts picker object, pt denies head strike. pt reports after that episode he had been standing on step stool fixing his clock and reports falling backwards and hitting his head. pt in unsure on what he hit his head on. pt denies pain at this time. pt denies use of blood thinners. pt is diabetic and reports having sensors in place. pt able to stand at bedside and use urinal with steady gait. pt normal sinus on tele 87-.
--- NOTE | 2023-06-02 03:51 | PC.NURSE ---
pt reporting 6/10 bilateral legs pain, pt requesting tylenol, hospitalist aware.
[2023-06-02] MEDS: Enoxaparin Sodium 40 MG/0.4 ML SYRINGE SUBCUT (04:02)
--- NOTE | 2023-06-02 04:49 | PC.NURSE ---
med req completed for pt at this time. pt reports taking 8mg of prednisone, this rn was unable to change dosage.
[2023-06-02] MEDS: Acetaminophen 325 MG TABLET 650 MG PO ×2 (05:05→14:31)
--- NOTE | 2023-06-02 05:09 | P.HPHOSP_ITS ---
History of Present Illness Date of Service: 06/02/23 Attending physician on admission: Jorge A Pollock Chief Complaint: Fall with possible loss of consciousness earlier today. Patient is a pleasant 87 year old white male with history of bilateral carotid artery stenosis s/p left carotid endarterectomy, PMR, type 2 diabetes mellitus, rheumatoid arthritis and coronary artery disease who was brought to the emergency room by ambulance for evaluation following two episodes of unwitnessed fall while at home with possible loss of consciousness. He reports first falling off a 3 step ladder as he was coming off when he missed the last step. He fell backwards and hit his head when he landed and now with mild head and neck pain. he is not sure if he lost consciousness during this fall but states that he was able to get up off the floor by himself and resumed his activities. A few hours later, he bent over to try turn off the power to his Insulin pump battery and on going to stand back up, feel backwards again. This time, he did not strike his head or any part of his body and denies any preceding or associated chest pain, shortness of breath or palpitations. He is again not sure if he lost consciousness. Shortly after this second fall, he started feeling a lot of pressure in his head and so checked his blood pressure and found it elevated with the systolic BP being > 200 mmHg. He called up his son and informed him that he was not feeling well and he in turn called EMS who brought him in for evaluation. Initial blood pressure checked in the ED was elevated at 219/99 mmHg and he was also orthostatic (with erect SBP dropping to 184 mmHg). He reports being compliant with his medications and is fairly active at baseline. Initial blood work done revealed a normal CBC and BMP. Urinalysis had 2+ k esterase and 2-50 WBC with 4+ bacteria. Admission was requested for overnight observation. Review of Systems 2 Review of Systems: Yes all other systems are reviewed and are negative [facility] Medical History Symptomatic stenosis of left carotid artery Non-rheumatic aortic stenosis Aortic stenosis Rheumatoid arthritis Carpal tunnel syndrome Former smoker Insulin pump in place Diabetes Elevated cholesterol CAD (coronary artery disease) HTN (hypertension) Cognitive capacity: Good Functional capacity: independent ambulation Family History Father Heart attack Heart disease Mother Pacemaker Cataracts, bilateral Sister Heart problem Heart valve replaced Arthritis Brother Heart attack Brother Rectal cancer Sister History of modified radical mastectomy of right breast Surgical History History of left-sided carotid endarterectomy (02/15/23) Hx of carpal tunnel repair Hx of cardiac catheterization History of shoulder surgery History of cholecystectomy History of hand surgery Hx of hemorrhoidectomy Hx of lumbar discectomy H/O colonoscopy Social History Household Members: None Housing: House Are you a primary career development engineer to a significant other at home: No Do you presently have visiting nurse or other home services: No Alcohol intake: former Patient Tobacco Use Status: Former Tobacco user Quit Date: 1964 Tobacco use type: Cigarette Years Smoked: 5 YEARS Smoked in Last 30 Days: No Use of substances other than those prescribed or required for medical reasons: No Advance Directives: Yes Advance Directives on File: Yes Advance Directives Date on File: 02/07/23 Nutrition Risks: No Nutritional Risk Current occupational status: employed Current occupation: [employer] Allergies Allergy/AdvReac Type Severity Reaction Status Date / Time Penicillins Allergy Severe ITCHING-SEV Verified 06/01/23 23:02 ERE piperacillin [From Zosyn] Allergy Mild JAUNDICE Verified 06/01/23 23:02 tazobactam [From Zosyn] Allergy Mild JAUNDICE Verified 06/01/23 23:02 Active Medications: Home Medications Medication Instructions Recorded Confirmed Last Taken Type Novolog U-100 Insulin aspart 80 units subcut (via wearable 06/01/20 02/15/23 02/14/23 History injectr) DAILY tamsulosin 0.4 mg capsule 0.4 mg PO BEDTIME 06/24/22 06/02/23 02/14/23 History vitamins A,C,X-gwnc-zapnzk 4,296 1 cap PO BID 06/24/22 02/15/23 02/14/23 History mcg-226 mg-90 mg capsule (PreserVision AREDS) acetaminophen 650 mg 650 mg PO Q8H PRN Pain 09/06/22 06/02/23 02/14/23 History tablet,extended release (Tylenol 8 Hour) amlodipine 2.5 mg tablet 2.5 mg PO DAILY 09/06/22 06/02/23 02/14/23 History citalopram 20 mg tablet 20 mg PO DAILY 09/06/22 06/02/23 02/14/23 History cyclobenzaprine 10 mg tablet 10 mg PO DAILY 09/06/22 06/02/23 02/14/23 History gabapentin 600 mg tablet 600 mg PO TID 09/06/22 06/02/23 02/14/23 History cholecalciferol (vitamin D3) 50 50 mcg PO BID 11/21/22 06/02/23 02/14/23 History mcg (2,000 unit) capsule calcium citrate 200 mg (950 mg) 1,600 mg PO BID 12/24/22 06/02/23 02/14/23 History tablet pilocarpine HCl 5 mg tablet 5 mg PO BID 02/15/23 06/02/23 02/14/23 History (Salagen (pilocarpine)) Physical Exam 2 Vital Signs and Narrative: Vital Signs: Last Vital Signs Temp 97.7 F 06/02/23 04:20 Pulse 73 06/02/23 04:20 Resp 20 06/02/23 04:20 BP 166/78 H 06/02/23 04:20 Pulse Ox 98 06/02/23 04:20 O2 Del Method Room Air 06/02/23 04:20 BMI result Body Mass Index 29.1 General: Well nourished elderly white male in bed. Awake and alert. In no apparent distress Eyes: No pallor or jaundice. PERRLA, EOMI HENT: Moist oral mucus membranes. No oropharyngeal lesions. Neck: Supple. No cervical adenopathy. No JVD Cardiovascular: Regular rate and rhythm. Noted with para-sternal BRISA radiating to the neck. No JVD. No peripheral edema. Respiratory: Normal respiratory effort with no accessory muscle use. CTAB. , CTA bilaterally Gastrointestinal: Abdomen is soft, non-tender, non-distended. NABS. No hepatosplenomegaly Extremities: No edema. No calf tenderness. Good peripheral pulses Skin: Warm/Dry. No rashes. No mottling. Capillary refill is < 2 seconds Neurological: AAOx4. Intact speech & cognition. Normal gait & balance. CN II - XII grossly intact but not individually tested. No motor or sensory deficits Hematologic: No bleeding. No ecchymosis. No swollen or tender lymph nodes. Psychiatric: Cooperative. Appropriate mood and affect . Results Labs 06/01/23 23:43 06/01/23 23:43 Labs: Laboratory Results - last 24 hr 06/01/23 06/01/23 23:38 23:43 MCV 90.5 MCH 29.4 MCHC 32.4 RDW 14.6 Plt Count 143 L D MPV 8.7 L Immature Gran % (Auto) 0.2 Neut % (Auto) 44.7 L Lymph % (Auto) 28.2 [place] % (Auto) 24.5 H Eos % (Auto) 1.6 Baso % (Auto) 0.8 Lymph # (Auto) 1.4 [place] # (Auto) 1.2 Eos # (Auto) 0.1 Baso # (Auto) 0.0 Abs Immat Gran (auto) 0.01 Absolute Neuts (auto) 2.2 Absolute Nucleated RBC 0.000 Nucleated RBC % (auto) 0.0 Smear Tech's Comments VERIFIED PT 10.7 L INR 0.9 D-Dimer High Sensitivty 205 Anion Gap 16 Estim Creat Clear Calc 65.9 Estimated GFR > 60 Random Glucose 92 Calcium 9.3 Total Bilirubin 0.9 Direct Bilirubin 0.4 AST 41 H ALT 34 Alkaline Phosphatase 104 B-Natriuretic Peptide 78 Total Protein 6.1 L Albumin 4.2 Urine Color Yellow Urine Appearance Clear Urine pH 6.5 Ur Specific [place] <= 1.005 Urine Protein Negative Urine Glucose (UA) Negative Urine Ketones Negative Urine Blood Negative Urine Nitrite Negative Ur Leukocyte Esterase Moderate (2+) H Urine RBC 0-2 Urine WBC 21-50 H Ur Squamous Epith Cells 0-2 Urine Bacteria 4+ Hyaline Casts 0-2 ECG ECG interpretation date: 06/02/23 ECG interpretation time: 05:34 Prior ECG tracings: available for review Interpretation: NSR at 80 bpm with LAD and normal VA interval. No ST-T segment changes to suggest ischemia. Imaging Radiologist's Impressions: Impressions Head & Cervical Spine CT 06/02/23 00:13 IMPRESSION: 1. No acute intracranial abnormality. 2. No cervical spine fracture or traumatic malalignment. Assessment and Plan (1) Hypertensive urgency: Status: Acute (2) Orthostatic hypotension: Status: Acute (3) Asymptomatic bacteriuria: Status: Acute (4) Fall from ladder: Qualifiers: Encounter type: initial encounter Qualified Code(s): W11.XXXA - Fall on and from ladder, initial encounter Status: Acute (5) Syncope: Qualifiers: Syncope type: unspecified Qualified Code(s): R55 - Syncope and collapse Status: Acute Plan 87 year old white male with history of bilateral carotid artery stenosis s/p left carotid endarterectomy, PMR, type 2 diabetes mellitus, rheumatoid arthritis and coronary artery disease here with 1. Hypertensive urgency - he presents with significantly elevated BP with SBP >200 - he is on amlodipine 2.5 mg once day which he reports compliance with - will increase dose to 10 mg daily and continue to closely monitor BP 2. Orthostatic hypotension - noted with orthostatic hypotension on initial evaluation in ED - he was however asymptomatic - with no dizziness or syncope - differential diagnosis to include autonomic dysfunction in this diabetic elderly patient who is well hydrated - encourage to take time to stand from a lying or sitting position to avoid falls. 3. Fall from ladder - appears to have been an accidental fall - no injury found on imaging studies - encourage to be careful at home 4. Asymptomatic bacteriuria - no treatment indicated at this time since he has no symptoms Total time managing care of this patient today: 75 minutes. Quality Stroke Does the patient have a stroke diagnosis?: No VTE Prior VTE?: No VTE Risk Level:: Medical - moderate - high VTE Device Contraindication: N/A - Device Ordered VTE Drug Contraindication: N/A - Med Ordered
[2023-06-02] MEDS: amLODIPine Besylate 5 MG TABLET PO ×2 (05:52→07:53)
[2023-06-02] MEDS: Omeprazole 20 MG CAPSULE.DR PO (07:52)
[2023-06-02] MEDS: Calcium + Vitamin D 250 MG TABLET PO (07:52)
[2023-06-02] MEDS: Gabapentin 600 MG TABLET PO ×2 (07:52→14:32)
[2023-06-02] MEDS: Cholecalciferol (Vitamin D3) 25 MCG TABLET 50 MCG PO (07:53)
[2023-06-02] MEDS: Aspirin Enteric Coated 81 MG TABLET.DR PO (07:54)
[2023-06-02] MEDS: Docusate Sodium 100 MG CAPSULE PO (07:54)
[2023-06-02] MEDS: 0.9 % Sodium Chloride Flush 3 ML SYRINGE IVFLUSH (07:54)
[2023-06-02] MEDS: polyethylene glycoL 3350 17 GM POWD.PACK PO (07:54)
[2023-06-02] MEDS: Atorvastatin Calcium 80 MG TABLET PO (07:54)
[2023-06-02] MEDS: Escitalopram Oxalate 10 MG TABLET PO (07:54)
--- NOTE | 2023-06-02 09:05 | PHA.MEDREC ---
Pharmacy Consult ? Medication Reconciliation Pharmacy has completed the medication reconciliation. Patient picks up from [place] this is why some medications are not showing in claims. Waiting on fax from MD now to confirm some medications. Patient confirmed hes on testosterone and has an insulin pump with novolog insulin inside. Patient states he is currently on 8 mg prednisone for 2 weeks then will decrease 7 mg for two weeks
--- NOTE | 2023-06-02 09:35 | MHC.CM.PN ---
IMM 06/02. Pt lives at home self-care, has a cane but doesn't use it. Goal is to return home self-care. Pts neighbor or daughter to transport him home. HCP completed with pt, now on file. PCP: Dr. Gisselle Gilman
[2023-06-02 10:22] LABS: Hemoglobin 12.7 g/dl (14.0-18.0); Mean Corpuscular HGB Conc 32.6 g/dl (31.0-36.0); Mean Corpuscular Hemoglobin 29.7 pg (27.0-33.0); Mean Corpuscular Volume 91.3 fL (80.0-98.0); Mean Platelet Volume 8.5 fL (9.4-12.4); Platelet Count 135 X10*3/uL (160-400); Red Blood Count 4.27 X10*6/uL (4.60-5.80); Red Cell Distribution Width 14.8 % (11.0-16.0); White Blood Count 4.2 X10*3/uL (4.8-10.8)
[2023-06-02 10:42] LABS: Anion Gap 12 (12-20); Blood Urea Nitrogen 14 mg/dL (9-16); Calcium 8.7 mg/dL (8.4-10.2); Carbon Dioxide 27 mmol/L (22-29); Chloride 106 mmol/L (96-108); Creatinine Clr Calc Pharmacy 64.3; Estimated Glomerular Filt Rate > 60; Glucose Random 187 mg/dL (60-115); Magnesium 2.1 mg/dL (1.6-2.6); Potassium 3.8 mmol/L (3.3-5.1); Sodium 141 mmol/L (135-145)
[2023-06-02 10:58] LABS: Thyroid Stimulating Hormone 1.85 uIU/mL (0.32-4.0)
--- NOTE | 2023-06-02 16:42 | P.DS_ITS ---
DS: Providers Provider Date of Service: 06/02/23 Date of admission: 06/02/23 03:45 Primary care physician: Gisselle Gilman MD DS: Diagnosis Discharge Diagnosis (1) Hypertensive urgency: Status: Acute (2) Orthostatic hypotension: Status: Acute (3) Asymptomatic bacteriuria: Status: Acute (4) Fall from ladder: Status: Acute (5) Syncope: Status: Acute DS: Summary Hospital Course Hospital Course: Date of Service: 06/02/23 Attending physician on admission: Jorge A Pollock Chief Complaint: Fall with possible loss of consciousness earlier today. Patient is a pleasant 87 year old white male with history of bilateral carotid artery stenosis s/p left carotid endarterectomy, PMR, type 2 diabetes mellitus, rheumatoid arthritis and coronary artery disease who was brought to the emergency room by ambulance for evaluation following two episodes of unwitnessed fall while at home with possible loss of consciousness. He reports first falling off a 3 step ladder as he was coming off when he missed the last step. He fell backwards and hit his head when he landed and now with mild head and neck pain. he is not sure if he lost consciousness during this fall but states that he was able to get up off the floor by himself and resumed his activities. A few hours later, he bent over to try turn off the power to his Insulin pump battery and on going to stand back up, feel backwards again. This time, he did not strike his head or any part of his body and denies any preceding or associated chest pain, shortness of breath or palpitations. He is again not sure if he lost consciousness. Shortly after this second fall, he started feeling a lot of pressure in his head and so checked his blood pressure and found it elevated with the systolic BP being > 200 mmHg. He called up his son and informed him that he was not feeling well and he in turn called EMS who brought him in for evaluation. Initial blood pressure checked in the ED was elevated at 219/99 mmHg and he was also orthostatic (with erect SBP dropping to 184 mmHg). He reports being compliant with his medications and is fairly active at baseline. Initial blood work done revealed a normal CBC and BMP. Urinalysis had 2+ k esterase and 2-50 WBC with 4+ bacteria. Admission was requested for overnight observation. hospital course 87 year old white male with history of bilateral carotid artery stenosis s/p left carotid endarterectomy, PMR, type 2 diabetes mellitus, rheumatoid arthritis and coronary artery disease here with 1. Hypertensive urgency presented with significantly elevated BP with SBP >200, dose of amlodipine increased to 5 mg blood pressure improved significantly patient remained asymptomatic with no headache no chest pain or palpitation therefore being discharged home with recommendation for close outpatient blood pressure monitoring and follow-up with PCP 2. Orthostatic hypotension- noted with orthostatic hypotension on initial evaluation in ED, patient remained asymptomatic with no dizziness or lightheadedness likely multifactorial due to autonomic dysfunction an elderly lab attic patient, mild dehydration, recommend outpatient follow-up with PCP 3. Fall from ladder appears to have been an accidental fall, seen by Physical therapy they recommend home PT due to mild unsteady gait. 4. Asymptomatic bacteriuria urinalysis showed elevated WBC and bacteria however patient denies any symptoms will follow urine culture if positive will inform patient and treat accordingly. Time Attestation Discharge coordination time: Greater than 30 minutes Quality: Safe Use of Opioids Does Pt have an Active Cancer Diagnosis on the Problem List?: No Quality: Stroke Does the patient have a stroke diagnosis?: No Physical Exam Vital Signs: Vital Signs: Last Vital Signs Temp 96.9 F 06/02/23 15:31 Pulse 70 06/02/23 15:31 Resp 18 06/02/23 15:31 BP 128/73 06/02/23 15:31 Pulse Ox 96 06/02/23 15:31 O2 Del Method Room Air 06/02/23 15:31 BMI result Body Mass Index 29.1 Const: Other: General awake alert x3, in no acute distress. Neck no JVD. CVS regular rate rhythm, Respiratory lungs clear to auscultation, no respiratory distress, no wheeze, no rhonchi. Gastrointestinal abdomen soft, non tender, bowel sounds audible, no guarding , no rigidity. Extremities no edema. Neuro nonfocal Skin no rash psych appropriate affect DS: Data Data Completed and Pending Completed studies during hospitalization [Text1]: Procedures Extirpation of Matter from Left External Carotid Artery, Open Approach (02/15/23) Supplement Left External Carotid Artery with Synthetic Substitute, Open Approach (02/15/23) Labs on day of discharge: Laboratory Results - last 24 hr 06/01/23 06/01/23 06/02/23 23:38 23:43 10:13 WBC 4.9 4.2 L RBC 4.53 L 4.27 L Hgb 13.3 L 12.7 L Hct 41.0 L 39.0 L MCV 90.5 91.3 MCH 29.4 29.7 MCHC 32.4 32.6 RDW 14.6 14.8 Plt Count 143 L D 135 L MPV 8.7 L 8.5 L Immature Gran % (Auto) 0.2 Neut % (Auto) 44.7 L Lymph % (Auto) 28.2 [place] % (Auto) 24.5 H Eos % (Auto) 1.6 Baso % (Auto) 0.8 Lymph # (Auto) 1.4 [place] # (Auto) 1.2 Eos # (Auto) 0.1 Baso # (Auto) 0.0 Abs Immat Gran (auto) 0.01 Absolute Neuts (auto) 2.2 Absolute Nucleated RBC 0.000 0.000 Nucleated RBC % (auto) 0.0 0.0 Smear Tech's Comments VERIFIED PT 10.7 L INR 0.9 D-Dimer High Sensitivty 205 Sodium 143 141 Potassium 3.5 3.8 Chloride 105 106 Carbon Dioxide 26 27 Anion Gap 16 12 BUN 16 14 Creatinine 0.85 0.87 Estim Creat Clear Calc 65.9 64.3 Estimated GFR > 60 > 60 Random Glucose 92 187 H Calcium 9.3 8.7 D Magnesium 2.1 Total Bilirubin 0.9 Direct Bilirubin 0.4 AST 41 H ALT 34 Alkaline Phosphatase 104 Troponin I High Sens 16.1 B-Natriuretic Peptide 78 Total Protein 6.1 L Albumin 4.2 TSH 1.85 Urine Color Yellow Urine Appearance Clear Urine pH 6.5 Ur Specific [place] <= 1.005 Urine Protein Negative Urine Glucose (UA) Negative Urine Ketones Negative Urine Blood Negative Urine Nitrite Negative Ur Leukocyte Esterase Moderate (2+) H Urine RBC 0-2 Urine WBC 21-50 H Ur Squamous Epith Cells 0-2 Urine Bacteria 4+ Hyaline Casts 0-2 Discharge Plan Discharge Anticipated Discharge Date/Time: 06/02/23 16:31 Patient Disposition: Home Health Service Discharge Diagnosis: hypertensive urgency recurrent fall Referrals: Gisselle Gilman MD [Primary Care Provider] - 1 Week Discharge Medications: New amlodipine 5 mg Tablet 5 mg PO DAILY Qty: 30 0RF Protocol: Hold for SBP< HOLD for SBP < : 90 sulfamethoxazole-trimethoprim [Bactrim DS] 800-160 mg tablet 1 tab PO BID Qty: 14 0RF Continued hydroxychloroquine 200 mg tablet 200 mg PO DAILY Qty: 90 1RF omeprazole 20 mg capsule,delayed release(DR/EC) 20 mg PO BID Qty: 180 10RF docusate sodium [Colace] 100 mg capsule 100 mg PO BID Qty: 60 1RF polyethylene glycol 3350 [Miralax] 17 gram/dose powder 17 g PO DAILY Qty: 510 0RF Actemra ACTPen 162 mg/0.9 mL pen injector 162 mg subcut Q2W Qty: 0.9 0RF Novolog U-100 Insulin aspart 0 units subcut (via wearable injectr) DAILY Rx Instructions: via TANDEM insulin pump gabapentin 600 mg tablet 600 mg PO TID calcium citrate 200 mg (950 mg) Tablet 1,600 mg PO BID atorvastatin 80 mg Tablet 80 mg PO DAILY Qty: 90 0RF aspirin 81 mg Tablet,Delayed Release (Dr/Ec) 81 mg PO DAILY Qty: 90 0RF pilocarpine HCl [Salagen (pilocarpine)] 5 mg tablet 5 mg PO BID testosterone cypionate 200 mg/mL Oil 60 mg IM TU citalopram 20 mg tablet 20 mg PO DAILY PreserVision AREDS [id number] capsule 1 cap PO BID tamsulosin 0.4 mg capsule 0.4 mg PO BEDTIME cyclobenzaprine 10 mg tablet 10 mg PO DAILY acetaminophen [Tylenol 8 Hour] 650 mg tablet extended release 650 mg PO Q8H PRN (Reason: Pain) prednisone 1 mg tablet See Rx Instructions PO .COMPLEX Qty: 140 0RF Rx Instructions: Use a combination of 5 mg tabs and 1 mg tabs to take 9 mg daily for 2 weeks then reduce by 1 mg every 2 weeks cholecalciferol (vitamin D3) 50 mcg (2,000 unit) capsule 50 mcg PO BID Discontinued amlodipine 2.5 mg tablet 2.5 mg PO DAILY Discharge Orders: Discharge Order (Routine); Ordered 06/02/23 Ordered By: Henrietta Woodruff Diet: Diabetic diet Activity on Discharge: As tolerated Stand Alone Forms: Patient Portal Discharge page Care Plan Goals: recurrent fall seen by Physical therapy they recommend home with PT services CT head showed no acute abnormality recent carotid ultrasound showed no hemodynamically significant stenosis dose of amlodipine increased to 5 mg due to elevated blood pressure continue all home medications return to check with lightheadedness or dizziness left knee muscular pain take Tylenol /hot pack take 2 tablets of amlodipine 2.5 mg ([id number]) till you get new prescription of amlodipine 5 mg. Health Concerns: diabetes mellitus hypercholesterol Plan of Treatment: follow-up with primary care physician Assessment: as above Discharge Date/Time: 06/02/23 17:22
--- NOTE | 2023-06-03 16:29 | W.MHC.F2F ---
Service Date Service Date: 06/03/23 Encounter Date of encounter: 06/02/23 Reasons for Services Signs and symptoms assessed: recurrent fall/ impaired strength left lower extremity Reason for physical therapy: gait/transfer training Homebound: Leaving the home is medically contraindicated at this time without the asist of a device and/or another person due th the listed conditions above and below. Reason homebound: pain with ambulation Certification: Based on the above findings, I certify that this patient is confined to the home and needs intermittent half-way care, physical therapy and/or speech therapy, or continues to need occupational therapy. The patient is under my care, and I have initiated the establishment of the plan of care. The patient will be followed by a physician who will periodically review the plan of care. Time Spent With Patient Time: Total time managing care of this patient today ____ minutes.
== END 2023-06-02 17:22 | disposition home health service (06) ==
LOC: HO.ED 06-02 01:37 → HO.IMC 06-02 04:56 → HO.EDOVER 06-06 10:13
PROVIDERS: Admitting Provider Internal Medicine; Emergency Provider Emergency Medicine; PCP Internal Medicine; Visit Provider Hospitalist
DX: I16.0 Hypertensive urgency (principal); I95.1 Orthostatic hypotension; R82.71 Bacteriuria; S09.90XA Unspecified injury of head, initial encounter; W11.XXXA Fall on and from ladder, initial encounter; Y93.9 Activity, unspecified; Y92.9 Unspecified place or not applicable; Y99.9 Unspecified external cause status; R51.9 Headache, unspecified; M54.2 Cervicalgia; I25.10 Atherosclerotic heart disease of native coronary artery without angina pectoris; E11.9 Type 2 diabetes mellitus without complications; M35.3 Polymyalgia rheumatica; M06.9 Rheumatoid arthritis, unspecified; I10 Essential (primary) hypertension; Z79.899 Other long term (current) drug therapy
CPT/HCPCS: 36415; 70450; 72125; 80048; 80076; 81001; 83735; 83880; 84443; 84484; 85025; 85027; 85379; 85610; 87086; 87088; 87186; 93005; 93880; 96360; 96361; 96372; 97161; 99222; 99285; J1650

== ENCOUNTER → 2023-06-01 23:04 | Outpatient (BNV) | payer MEDICARE, SELFPAY | PROVIDERS: Admitting Provider Internal Medicine; Emergency Provider Emergency Medicine; PCP Internal Medicine; Visit Provider Internal Medicine Cardiovascular Disease | DX: R55 Syncope and collapse (principal); R94.31 Abnormal electrocardiogram [ECG] [EKG] | CPT/HCPCS: 93010 ==

== ENCOUNTER → 2023-06-02 03:45 | Outpatient (BNV) | payer MEDICARE, SELFPAY | PROVIDERS: Admitting Provider Internal Medicine; Emergency Provider Emergency Medicine; PCP Internal Medicine; Visit Provider Internal Medicine | DX: I16.0 Hypertensive urgency (principal); I95.1 Orthostatic hypotension; R82.71 Bacteriuria; W11.XXXA Fall on and from ladder, initial encounter; R55 Syncope and collapse | CPT/HCPCS: 99236; 99499; G0180 ==

== ENCOUNTER 2023-06-06 12:50 | Outpatient (AMB) | payer MEDICARE, SELFPAY ==
--- NOTE | 2023-06-06 12:54 | MHC.OFFVIS ---
Intake Vital Signs 06/06/23 12:57 Height 5 ft 7 in Weight 180 lb BMI 28.2 Intake Visit Reasons: FU US Intake Note: Pt here for a fallow up Carotid Duplex Us on 05/30/23 Hx of left CEA 02/15/23 Pt states he went t the ER last week because his blood pressure went high and he ended up passing out. The Er gave him meds to lower his blood pressure and he was discharge Allergies Penicillins Allergy (Severe, Verified 06/06/23 12:58) ITCHING-SEVERE piperacillin [From Zosyn] Allergy (Mild, Verified 06/06/23 12:58) JAUNDICE tazobactam [From Zosyn] Allergy (Mild, Verified 06/06/23 12:58) JAUNDICE HPI FU US HPI Details Very pleasant 83-year-old gentleman presents for routine follow-up. He has had a prior left carotid endarterectomy. He reports no interval issues. He has been placed on prednisone for his polymyalgia rheumatica. He also reports that he has been noticing some blood pressure fluctuations but in general has been staying fairly stable. He now presents for routine surveillance ultrasound check regarding his carotids. [facility] Medical History Symptomatic stenosis of left carotid artery Non-rheumatic aortic stenosis Aortic stenosis Rheumatoid arthritis Carpal tunnel syndrome Former smoker Insulin pump in place Diabetes Elevated cholesterol CAD (coronary artery disease) HTN (hypertension) Surgical History History of left-sided carotid endarterectomy (02/15/23) Hx of carpal tunnel repair Hx of cardiac catheterization History of shoulder surgery History of cholecystectomy History of hand surgery Hx of hemorrhoidectomy Hx of lumbar discectomy H/O colonoscopy Family History Father Heart attack Heart disease Mother Pacemaker Cataracts, bilateral Sister Heart problem Heart valve replaced Arthritis Brother Heart attack Brother Rectal cancer Sister History of modified radical mastectomy of right breast Social History Household Members: None Housing: House Are you a primary companion caregiver to a significant other at home: No Do you presently have visiting nurse or other home services: No Alcohol intake: former Patient Tobacco Use Status: Former Tobacco user Quit Date: 1964 Tobacco use type: Cigarette Years Smoked: 5 YEARS Advance Directives Date on File: 02/07/23 service: No Current occupational status: employed Current occupation: [employer] Review of Systems Const All systems reviewed & are unremarkable except as noted in HPI and below Reports no additional complaints ENT Reports Normal hearing present Card Denies chest pain, Denies chest pain at rest, Denies chest pain with activity and Denies pedal edema Resp Denies cough GI Denies abdominal pain Musc Denies abnormal gait, Denies muscle cramps and Denies radiating pain into limb Skin/Breast Denies skin ulcer and Denies wounds Neuro Reports Normal hearing present and Denies abnormal gait Psych Reports no additional complaints Physical Exam Vital Signs: BMI result Body Mass Index 28.2 Const General: cooperative, healthy appearing and comfortable Orientation/consciousness: oriented to person, oriented to place and oriented to time HEENT Head: Yes normal to inspection Neck Neck: Yes normal visual inspection Carotids: no bruits Chest Chest palpation & inspection: normal inspection of the chest Resp Effort & Inspection: normal respiratory effort and able to speak in complete sentences Auscultation: clear to auscultation bilaterally, no crackles, no rales, no rhonchi and no wheezes Cardio Rate: regular rate Rhythm: regular rhythm Heart sounds: S1 normal heart sound present and S2 normal heart sound present Bruits: no carotid bruits Peripheral pulses: Peripheral pulses 2+ throughout GI Inspection: Yes normal to inspection Skin Wounds: no wounds Hair: normal Neuro General: oriented to person, oriented to place and oriented to time Cranial nerves: Yes CN's II-XII intact bilaterally and Yes Normal hearing present Cognition (Neuro): normal cognition Motor exam (neuro): 5/5 motor strength present throughout Extrem Other: venous exam: No significant superficial varicosities or spider telangiectasias, minimal edema General: No clubbing, No cyanosis and No edema Psych Appearance: grossly normal Mental Status: mental status grossly normal Speech and movement: Normal speech and movement present Results Reviewed Results Reviewed: Carotid testing dated 05/30/2023 demonstrates bilateral 0-49% stenosis. Written report and images were reviewed. Assessment & Plan Assessment & Plan (1) Bilateral carotid artery stenosis: Comment: 02/15/2023 - left carotid endarterectomy Code(s): I65.23 - Occlusion and stenosis of bilateral carotid arteries Plan: In short patient has asymptomatic carotid disease. We have reviewed signs and symptoms of a stroke. We also discussed risk factor modification inclusive a healthy diet low in cholesterol. The patient will follow up with us with surveillance ultrasound of the carotids 6 months. Should there be any changes or signs or symptoms of a stroke we will be happy to see them back sooner. Thank you for allowing us to participate in this patient's care. If there are any questions or concerns please do not hesitate to contact us. Orders: Orders US carotid duplex BI 6 Months I65.29 - Occlusion and stenosis of unspecified carotid artery Coding Level of Care Code Est Pt Level 4 (45786) Diagnoses Bilateral carotid artery stenosis I65.23
[2023-06-06 12:57] VITALS: BMI 28.2
== END 2023-06-06 13:12 | disposition home or self-care (01) ==
PROVIDERS: PCP Internal Medicine; Visit Provider Surgery Vascular Surgery
DX: I65.23 Occlusion and stenosis of bilateral carotid arteries (principal)
CPT/HCPCS: 99213

== ENCOUNTER → 2023-06-06 12:50 | Outpatient (BNVA) | payer MEDICARE, SELFPAY | PROVIDERS: PCP Internal Medicine; Visit Provider Surgery Vascular Surgery | DX: I65.23 Occlusion and stenosis of bilateral carotid arteries (principal) | CPT/HCPCS: 99212 ==

== ENCOUNTER 2023-06-11 12:24 | Emergency (ER) | payer MEDICARE, SELFPAY ==
--- NOTE | ~2023-06-11 | XR_ITS ---
EXAMINATION: XR CHEST CLINICAL INFORMATION: Chest pain COMPARISON: None available. TECHNIQUE: Frontal view of the chest was obtained. FINDINGS: The lungs are hypoexpanded but clear. The heart size is enlarged. Pulmonary vascularity is normal. No gross bony abnormality seen. XR/XR chest 1V IMPRESSION: Mild cardiomegaly. No acute process seen.
[2023-06-11 12:30] VITALS: BP 132/72; BP 150/71; PULSE 80; PULSE 88; RESP 18; TEMP 36.7; O2SAT 100; O2SAT 96; BMI 27.9
--- NOTE | 2023-06-11 12:49 | ECG_ITS ---
Test Reason : CHEST PAIN Blood Pressure : / mmHG Vent. Rate : 079 BPM Atrial Rate : 079 BPM P-R Int : 158 ms QRS Dur : 114 ms QT Int : 420 ms P-R-T Axes : 013 -43 048 degrees QTc Int : 481 ms Normal sinus rhythm Left axis deviation Left ventricular hypertrophy with repolarization abnormality ( R in aVL , Sergey product ) Abnormal ECG When compared with ECG of 01-JUN-2023 23:04, No significant change was found Referred By: Veronica Aleman Electronically Signed By:TESSA SCHNEIDER MD
--- NOTE | 2023-06-11 13:45 | ED_ITS ---
HPI - Chest Pain General Chief Complaint: Chest Pain Stated Complaint: CP X4 DAYS PER EMS Time Seen by Provider: 06/11/23 12:34 Source: patient Mode of arrival: EMS History of Present Illness HPI narrative: 83-year-old male who presents via ambulance today from home and on the triage note states that he reported chest pain but he is endorsing to me that he had mid right-sided abdominal discomfort that has been ongoing for 3 days. This is not been associated with any nausea, vomiting, fever, or chills he does report some loose stools but states he is on stool softeners. Patient denies any falls or other traumatic injuries. Patient received 324 mg of aspirin from EMS for his complaints of chest pain. Related Data Home Medications Medication Instructions Recorded Confirmed Novolog U-100 Insulin aspart 0 units subcut (via wearable 06/01/20 06/02/23 injectr) DAILY tamsulosin 0.4 mg capsule 0.4 mg PO BEDTIME 06/24/22 06/02/23 vitamins A,C,J-amzx-vjhufc 4,296 1 cap PO BID 06/24/22 06/02/23 mcg-226 mg-90 mg capsule (PreserVision AREDS) acetaminophen 650 mg 650 mg PO Q8H PRN Pain 09/06/22 06/02/23 tablet,extended release (Tylenol 8 Hour) citalopram 20 mg tablet 20 mg PO DAILY 09/06/22 06/02/23 cyclobenzaprine 10 mg tablet 10 mg PO DAILY 09/06/22 06/02/23 gabapentin 600 mg tablet 600 mg PO TID 09/06/22 06/02/23 cholecalciferol (vitamin D3) 50 50 mcg PO BID 11/21/22 06/02/23 mcg (2,000 unit) capsule calcium citrate 200 mg (950 mg) 1,600 mg PO BID 12/24/22 06/02/23 tablet pilocarpine HCl 5 mg tablet 5 mg PO BID 02/15/23 06/02/23 (Salagen (pilocarpine)) testosterone cypionate 200 mg/mL 60 mg IM TU 06/02/23 06/02/23 intramuscular oil Previous Rx's Medication Instructions Recorded aspirin 81 mg tablet,delayed 81 mg PO DAILY #90 tabs 02/10/23 release atorvastatin 80 mg tablet 80 mg PO DAILY #90 tabs 02/10/23 hydroxychloroquine 200 mg tablet 200 mg PO DAILY #90 tabs 02/10/23 omeprazole 20 mg capsule,delayed 20 mg PO BID #180 caps 03/28/23 release prednisone 1 mg tablet See Rx Instructions PO .COMPLEX 05/02/23 #140 tabs docusate sodium 100 mg capsule 100 mg PO BID #60 caps 05/15/23 (Colace) polyethylene glycol 3350 17 17 g PO DAILY #510 grams 05/15/23 gram/dose oral powder (Miralax) amlodipine 5 mg tablet 5 mg PO DAILY #30 tabs 06/02/23 sulfamethoxazole 800 1 tab PO BID #14 tabs 06/03/23 mg-trimethoprim 160 mg tablet (Bactrim DS) Actemra ACTPen 162 mg/0.9 mL 162 mg (0.9 mL) subcut Q2W #1.8 mL 06/07/23 subcutaneous pen injector (tocilizumab) Allergies Allergy/AdvReac Type Severity Reaction Status Date / Time Penicillins Allergy Severe ITCHING-SEV Verified 06/06/23 12:58 ERE piperacillin [From Zosyn] Allergy Mild JAUNDICE Verified 06/06/23 12:58 tazobactam [From Zosyn] Allergy Mild JAUNDICE Verified 06/06/23 12:58 Review of Systems 2 Review of Systems: Pertinent positives and negatives as stated in HPI [facility] Past Medical History Source: nursing notes reviewed Medical History Symptomatic stenosis of left carotid artery Non-rheumatic aortic stenosis Aortic stenosis Rheumatoid arthritis Carpal tunnel syndrome Former smoker Insulin pump in place Diabetes Elevated cholesterol CAD (coronary artery disease) HTN (hypertension) Surgical History History of left-sided carotid endarterectomy (02/15/23) Hx of carpal tunnel repair Hx of cardiac catheterization History of shoulder surgery History of cholecystectomy History of hand surgery Hx of hemorrhoidectomy Hx of lumbar discectomy H/O colonoscopy Family History Family History Father Heart attack Heart disease Mother Pacemaker Cataracts, bilateral Sister Heart problem Heart valve replaced Arthritis Brother Heart attack Brother Rectal cancer Sister History of modified radical mastectomy of right breast Social History Social History Household Members: None Housing: House Are you a primary laboratory animal caretaker to a significant other at home: No Do you presently have visiting nurse or other home services: No Alcohol intake: former Patient Tobacco Use Status: Former Tobacco user Quit Date: 1964 Tobacco use type: Cigarette Years Smoked: 5 YEARS Advance Directives: Yes Advance Directives on File: Yes Advance Directives Date on File: 02/07/23 service: No Current occupational status: employed Current occupation: [employer] Physical Exam 2 Vital Signs: Vital Signs: Last Vital Signs Temp 98.0 F 06/11/23 12:30 Pulse 80 06/11/23 12:30 Resp 18 06/11/23 12:30 BP 150/71 H 06/11/23 12:30 Pulse Ox 96 06/11/23 12:30 O2 Del Method Room Air 06/11/23 12:30 BMI result Body Mass Index 27.9 VITAL SIGNS: Reviewed. GENERAL: Well developed, well nourished, in no acute distress. HEAD: Normocephalic/atraumatic EYES: PERRLA, EOMI EARS: Ext canals without abnormality NOSE: Nares patent bilateral OROPHARYNX: no oral lesions noted, posterior pharynx clear NECK: Supple, no adenopathy LUNGS: Normal breath sounds. No adventitious sounds or accessory muscle use. SpO2<96> CARDIOVASCULAR: Regular rate and rhythm without noted murmurs ABDOMEN: Soft, non-tender, non-distended with bowel sounds. MUSCULOSKELETAL: No tenderness, deformities, or effusions noted on gross inspection. EXTREMITIES: No cyanosis, clubbing or edema. SKIN: Inspection of the skin reveals no rashes NEUROLOGIC: Alert and oriented x 4. Strength and sensation to light touch were grossly intact x 4. Medical Decision Making Medical Decision Making MDM Narrative: 83-year-old male with history and clinical presentation, DDX: MSK, ?denies chest pain and abdominal pain is resolved. I reviewed all investigations and hematologic indices are chronically stable from prior lab work obtained on 06/01 and on visit on 06/02. Coagulation studies within normal limits. Chemistry indices are grossly within normal limits and there is no demonstrated RONAK or electrolyte/liver enzyme derangements. High sensitivity troponin is detectable but flat and compares to prior values. EKG does not show any acute changes. And patient has no complaints of chest pain at this time and he denies that he had chest pain on initial call to EMS. Viral testing is negative for COVID-19 and influenza. Chest x-ray does not demonstrate any infiltrate or venous congestion otherwise my interpretation is in agreement with radiology's impression. My interpretation is that patient may be experiencing musculoskeletal pain in etiology, there is no leukocytosis and patient is not febrile. No indication right lower lobe pneumonia and began patient has no leukocytosis or fever. There is no evidence to suggest a viral illness and patient is otherwise discharged back home and instructed follow-up with his primary care doctor on Monday. Differential Diagnosis Differential Diagnoses: The differential diagnosis associated with the presentation includes Please see the discussion above Admission/Observation Consideration of admission/observation: Escalation of care including admission/observation considered Please see the discussion above Lab Data MDM Lab Attestation statement: I reviewed the patient's lab results. Please see the discussion above 06/11/23 13:57 06/11/23 13:57 Labs: Lab Results 06/11/23 06/11/23 Range/Units 13:57 14:28 WBC 3.7 L (4.8-10.8) X10*3/uL RBC 4.39 L (4.60-5.80) X10*6/uL Hgb 12.7 L (14.0-18.0) g/dl Hct 39.5 L (42.0-52.0) % MCV 90.0 (80.0-98.0) fL MCH 28.9 (27.0-33.0) pg MCHC 32.2 (31.0-36.0) g/dl RDW 14.4 (11.0-16.0) % Plt Count 122 L (160-400) X10*3/uL MPV 8.5 L (9.4-12.4) fL Immature Gran % (Auto) 0.3 (0.0-0.4) % Neut % (Auto) 37.6 L (45-73) % Lymph % (Auto) 33.1 (20-40) % [place] % (Auto) 24.9 H (2-11) % Eos % (Auto) 3.3 (0-4) % Baso % (Auto) 0.8 (0-2) % Lymph # (Auto) 1.2 (1.2-4.9) X10*3/uL [place] # (Auto) 0.9 (0.1-1.2) X10*3/uL Eos # (Auto) 0.1 (0.0-0.4) X10*3/uL Baso # (Auto) 0.0 (0.0-0.2) X10*3/uL Abs Immat Gran (auto) 0.01 (0.00-0.03) X10*3/uL Absolute Neuts (auto) 1.4 L (2.0-8.3) x10*3/uL Absolute Nucleated RBC 0.000 (0.0-0.012) X10*3/uL Nucleated RBC % (auto) 0.0 (0.0-0.2) /100WBC Smear Tech's Comments VERIFIED PT 11.4 (11.1-13.3) SEC INR 0.9 (0.9-1.1) Sodium 144 (135-145) mmol/L Potassium 4.1 (3.3-5.1) mmol/L Chloride 109 H (96-108) mmol/L Carbon Dioxide 26 (22-29) mmol/L Anion Gap 13 (12-20) BUN 18 H (9-16) mg/dL Creatinine 0.96 (0.5-1.4) mg/dL Estim Creat Clear Calc 57.3 Estimated GFR > 60 Random Glucose 98 (60-115) mg/dL Calcium 8.7 (8.4-10.2) mg/dL Total Bilirubin 0.8 (0.0-1.0) mg/dL AST 25 (5-37) U/L ALT 24 (0-40) U/L Alkaline Phosphatase 73 (39-117) U/L Total Protein 5.5 L (6.5-8.0) g/dL Albumin 3.8 (3.5-5.0) g/dL COVID-19 (TOOTIE) Negative (Negative) COVID-19 Clin Com See Note Influenza Type A (GARETH) Negative (Negative) Influenza Type B (GARETH) Negative (Negative) Influenza A & B Note See Note Independent Interpretation I performed an independent interpretation of an: EKG Interpretation: Sinus rhythm, HR-79, no STEMI, UT/QTC within normal limits, QRS-114, no acute changes when compared to prior EKG. Radiology Impression Discussion of test interpretation with radiology: I have reviewed the radiologist's reading. Radiologist Impression: Please see the discussion above External Record Review External record reviewed: Outpatient record, Prior outpatient labs and Prior outpatient radiology Chronic Conditions Patient?s care impacted by: Diabetes and Hypertension Critical Care Time Critical Care Time Critical Care Time: Yes Total Critical Care Time: 30 Attestation: I personally attest to this time spent taking care of the patient. Discharge Plan Discharge Clinical Impression: Abdominal pain Patient Disposition: Home, Self-Care Instructions: Abdominal Pain (ED) Additional Instructions: 1. Resume all home medications as prescribed. 2. Please follow-up with your primary care doctor on Monday morning. Return to the ER for any worsening symptoms. Prescriptions: No Action hydroxychloroquine 200 mg tablet 200 mg PO DAILY Qty: 90 1RF omeprazole 20 mg capsule,delayed release(DR/EC) 20 mg PO BID Qty: 180 10RF docusate sodium [Colace] 100 mg capsule 100 mg PO BID Qty: 60 1RF polyethylene glycol 3350 [Miralax] 17 gram/dose powder 17 g PO DAILY Qty: 510 0RF Actemra ACTPen 162 mg/0.9 mL pen injector 162 mg subcut Q2W Qty: 1.8 2RF Novolog U-100 Insulin aspart 0 units subcut (via wearable injectr) DAILY Rx Instructions: via TANDEM insulin pump gabapentin 600 mg tablet 600 mg PO TID calcium citrate 200 mg (950 mg) Tablet 1,600 mg PO BID atorvastatin 80 mg Tablet 80 mg PO DAILY Qty: 90 0RF aspirin 81 mg Tablet,Delayed Release (Dr/Ec) 81 mg PO DAILY Qty: 90 0RF pilocarpine HCl [Salagen (pilocarpine)] 5 mg tablet 5 mg PO BID testosterone cypionate 200 mg/mL Oil 60 mg IM TU amlodipine 5 mg Tablet 5 mg PO DAILY Qty: 30 0RF Protocol: Hold for SBP< HOLD for SBP < : 90 sulfamethoxazole-trimethoprim [Bactrim DS] 800-160 mg tablet 1 tab PO BID Qty: 14 0RF citalopram 20 mg tablet 20 mg PO DAILY PreserVision AREDS 14,320-226-200 [id number] capsule 1 cap PO BID tamsulosin 0.4 mg capsule 0.4 mg PO BEDTIME cyclobenzaprine 10 mg tablet 10 mg PO DAILY acetaminophen [Tylenol 8 Hour] 650 mg tablet extended release 650 mg PO Q8H PRN (Reason: Pain) prednisone 1 mg tablet See Rx Instructions PO .COMPLEX Qty: 140 0RF Rx Instructions: Use a combination of 5 mg tabs and 1 mg tabs to take 9 mg daily for 2 weeks then reduce by 1 mg every 2 weeks cholecalciferol (vitamin D3) 50 mcg (2,000 unit) capsule 50 mcg PO BID Referrals: Gisselle Gilman MD [Primary Care Provider] -
[2023-06-11 14:07] LABS: Basophils Percent Auto 0.8 % (0-2); Eosinophils Absolute Auto 0.1 X10*3/uL (0.0-0.4); Eosinophils Percent Auto 3.3 % (0-4); Hematocrit 39.5 % (42.0-52.0); Hemoglobin 12.7 g/dl (14.0-18.0); Imm Gran Abs Auto 0.01 X10*3/uL (0.00-0.03); Imm Gran Pct Auto 0.3 % (0.0-0.4); Lymphocytes Absolute Auto 1.2 X10*3/uL (1.2-4.9); Lymphocytes Percent Auto 33.1 % (20-40); MANUAL DIFF FLAG SCAN; Mean Corpuscular HGB Conc 32.2 g/dl (31.0-36.0); Mean Corpuscular Hemoglobin 28.9 pg (27.0-33.0); Mean Platelet Volume 8.5 fL (9.4-12.4); Monocytes Absolute Auto 0.9 X10*3/uL (0.1-1.2); Monocytes Percent Auto 24.9 % (2-11); Neutrophils Absolute Auto 1.4 x10*3/uL (2.0-8.3); Neutrophils Percent Auto 37.6 % (45-73); Platelet Count 122 X10*3/uL (160-400); Red Blood Count 4.39 X10*6/uL (4.60-5.80); Red Cell Distribution Width 14.4 % (11.0-16.0); SCAN SMEAR FLAG 1; White Blood Count 3.7 X10*3/uL (4.8-10.8)
[2023-06-11 14:13] LABS: INTERNATIONAL NORM RATIO 0.9 (0.9-1.1); Prothrombin Time 11.4 SEC (11.1-13.3)
[2023-06-11 14:37] LABS: SLIDE REVIEW VERIFIED
[2023-06-11 14:42] LABS: Alanine Aminotransferase 24 U/L (0-40); Albumin Level 3.8 g/dL (3.5-5.0); Alkaline Phosphatase 73 U/L (39-117); Anion Gap 13 (12-20); Aspartate Amino Transferase 25 U/L (5-37); Bilirubin Total 0.8 mg/dL (0.0-1.0); Blood Urea Nitrogen 18 mg/dL (9-16); Calcium 8.7 mg/dL (8.4-10.2); Carbon Dioxide 26 mmol/L (22-29); Chloride 109 mmol/L (96-108); Creatinine Clr Calc Pharmacy 57.3; Estimated Glomerular Filt Rate > 60; Glucose Random 98 mg/dL (60-115); Potassium 4.1 mmol/L (3.3-5.1); Sodium 144 mmol/L (135-145); Total Protein 5.5 g/dL (6.5-8.0)
[2023-06-11 14:54] LABS: COVID-19 Test Negative (Negative); IDNOW Serial# 08D9AD1C; IDNOW Serial# BCCEAD1C; Influenza A Negative (Negative); Influenza B2 Negative (Negative)
[2023-06-11 15:56] LABS: Troponin-I High Sensitivity 11.7 ng/L (<3.5-35.0)
[2023-06-11 16:38] VITALS: BP 116/57; PULSE 92; RESP 16; TEMP 36.4; O2SAT 96
== END 2023-06-11 16:51 | disposition home or self-care (01) ==
PROVIDERS: Emergency Provider Student in an Organized Health Care Education/Training Program; PCP Internal Medicine
DX: R10.9 Unspecified abdominal pain (principal); R07.9 Chest pain, unspecified; I10 Essential (primary) hypertension; E11.9 Type 2 diabetes mellitus without complications; Z96.41 Presence of insulin pump (external) (internal); Z11.52 Encounter for screening for COVID-19
CPT/HCPCS: 36415; 71045; 80053; 84484; 85025; 85610; 87502; 87635; 93005; 99283; 99284

== ENCOUNTER → 2023-06-11 12:49 | Outpatient (BNV) | payer MEDICARE, SELFPAY | PROVIDERS: Emergency Provider Student in an Organized Health Care Education/Training Program; PCP Internal Medicine; Visit Provider Internal Medicine Cardiovascular Disease | DX: R07.9 Chest pain, unspecified (principal) | CPT/HCPCS: 93010 ==

== ENCOUNTER 2023-07-04 08:17 | Outpatient (REF) | payer MEDICARE, SELFPAY ==
[2023-07-04 09:36] LABS: Basophils Percent Auto 0.6 % (0-2); Eosinophils Absolute Auto 0.1 X10*3/uL (0.0-0.4); Eosinophils Percent Auto 1.5 % (0-4); Hematocrit 40.5 % (42.0-52.0); Hemoglobin 12.9 g/dl (14.0-18.0); Imm Gran Abs Auto 0.01 X10*3/uL (0.00-0.03); Imm Gran Pct Auto 0.2 % (0.0-0.4); Lymphocytes Absolute Auto 1.6 X10*3/uL (1.2-4.9); Lymphocytes Percent Auto 29.7 % (20-40); MANUAL DIFF FLAG SCAN; Mean Corpuscular HGB Conc 31.9 g/dl (31.0-36.0); Mean Corpuscular Hemoglobin 28.6 pg (27.0-33.0); Mean Corpuscular Volume 89.8 fL (80.0-98.0); Mean Platelet Volume 9.3 fL (9.4-12.4); Monocytes Absolute Auto 1.2 X10*3/uL (0.1-1.2); Neutrophils Absolute Auto 2.4 x10*3/uL (2.0-8.3); Platelet Count 140 X10*3/uL (160-400); Red Blood Count 4.51 X10*6/uL (4.60-5.80); Red Cell Distribution Width 13.7 % (11.0-16.0); SCAN SMEAR FLAG 1; White Blood Count 5.4 X10*3/uL (4.8-10.8)
[2023-07-04 09:55] LABS: SLIDE REVIEW VERIFIED
[2023-07-04 10:09] LABS: Alanine Aminotransferase 30 U/L (0-40); Albumin Level 3.9 g/dL (3.5-5.0); Alkaline Phosphatase 94 U/L (39-117); Anion Gap 12 (12-20); Aspartate Amino Transferase 29 U/L (5-37); Bilirubin Total 1.2 mg/dL (0.0-1.0); Blood Urea Nitrogen 23 mg/dL (9-16); C Reactive Protein < 0.04 mg/dL (< or = 0.50); Calcium 9.1 mg/dL (8.4-10.2); Carbon Dioxide 28 mmol/L (22-29); Chloride 106 mmol/L (96-108); Estimated Glomerular Filt Rate > 60; Glucose Random 127 mg/dL (60-115); Potassium 3.9 mmol/L (3.3-5.1); Sodium 142 mmol/L (135-145); Total Protein 5.5 g/dL (6.5-8.0)
[2023-07-04 10:19] LABS: Erythrocyte Sedimentation Rate 1 MM/HR (0-15)
== END 2023-07-04 08:18 | disposition home or self-care (01) ==
LOC: HO.LAB 08:17
PROVIDERS: PCP Internal Medicine; Visit Provider Student in an Organized Health Care Education/Training Program
DX: M06.9 Rheumatoid arthritis, unspecified (principal); Z79.631 Long term (current) use of antimetabolite agent
CPT/HCPCS: 36415; 80053; 85025; 85652; 86140

== ENCOUNTER 2023-07-11 08:33 | Outpatient (AMB) | payer MEDICARE, SELFPAY ==
[2023-07-11 08:49] VITALS: BP 122/60; PULSE 84; TEMP 36; O2SAT 96; BMI 28.5
--- NOTE | 2023-07-11 08:49 | MHC.OFFVIS ---
Intake Vital Signs 07/11/23 08:49 Height 5 ft 7 in Weight 182 lb 1.629 oz BMI 28.5 BP 122/60 Blood Pressure Location Rt brachial Position Sitting Pulse 84 Pulse Source Pulse Oximeter Temp 96.8 F Temp Source Skin Pulse Oximetry (%) 96 Oxygen Delivery Method Room Air Intake Visit Reasons: RA Intake Note: Patient last seen 05/02/23 presents today for follow up and test results. Seen at [facility] ED x2 since last visit. Would like to get rx for gabapentin. 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 Accompanied by: Self / Same As Patient Allergies Penicillins Allergy (Severe, Verified 07/11/23 08:53) ITCHING-SEVERE piperacillin [From Zosyn] Allergy (Mild, Verified 07/11/23 08:53) JAUNDICE tazobactam [From Zosyn] Allergy (Mild, Verified 07/11/23 08:53) JAUNDICE Medication List - Last Reconciled 07/11/23 by Marisela Neil MD acetaminophen ER (Tylenol 8 Hour) 650 mg PO Q8H PRN Actemra ACTPen (tocilizumab) 162 mg (0.9 mL) subcut Q2W NS amlodipine 5 mg See Protocol PO DAILY aspirin 81 mg PO DAILY atorvastatin mg PO calcium citrate 1,600 mg PO BID cholecalciferol (vitamin D3) 50 mcg PO BID citalopram 20 mg PO DAILY cyclobenzaprine 10 mg PO DAILY docusate sodium (Colace) 100 mg PO BID gabapentin 600 mg PO TID hydroxychloroquine 200 mg PO DAILY [Novolog U-100 Insulin aspart via TANDEM insulin pump] omeprazole 20 mg PO BID pilocarpine HCl (Salagen (pilocarpine)) 5 mg PO BID polyethylene glycol 3350 (Miralax) 17 grams PO DAILY prednisone 1 mg PO DAILY sulfamethoxazole-trimethoprim 800-160 mg (Bactrim DS) 1 tab PO BID tamsulosin 0.4 mg PO BEDTIME testosterone cypionate 60 mg IM TU vitamins A,C,S-ziqa-cnqogk 4,296 mcg-226 mg-90 mg (PreserVision AREDS) 1 cap PO BID HPI HPI Comments History of Present Illness Details 83-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 He presented to the hospital last month after a mechanical fall. He states that he gets intermittent lightheadedness. He has been having some shortness of breath recently. With regards to his joints. He has been having more joint pain recently. Especially both wrists, shoulders, hands. Used to have numbness in his left upper extremity. 4 days ago, he was having coffee at [employer]. When he stood up. He heard a loud snap in his left knee associated with swelling in the back of his knee and left knee pain since then. He has been using a cane. He has not had any significant knee instability. Initial history: This is an 82-year-old male referred from the [place] with complex past medical history including diabetes mellitus on insulin pump, dyslipidemia, CAD, PMR, rheumatoid arthritis who presents for evaluation of rheumatoid arthritis. 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 Patient stated he was diagnosed with PMR more than [address] Nichole, he stated that he was started on prednisone 20 mg which would be tapered down to 10 mg and as soon as he is on lower than 10 mg he starts flaring with diffuse joint pain. He then followed with Dr. alfaro and most recently with Gisselle Taylor. Patient has had numerous surgeries due to his rheumatoid arthritis, he states that his carpal bones are fused bilaterally, he also had right wrist surgery, he has SLAP repair surgery for his left shoulder and rotator cuff repair for his right shoulder. He also had a bursectomy for his left elbow. He was started on hydroxychloroquine a few months ago by Gisselle Taylor and he is not sure if it is helping. He also has history of osteoporosis complicated by multiple vertebral fractures in 2021 which were quite painful. He was started on Fosamax once weekly by Gisselle Taylor. About a month ago he had a flare up of diffuse joint pain that was attributed to Fosamax. Since then Fosamax had been stopped. Prednisone was increased back to 15 mg by his PCP. He states that he had a flare-up affecting his wrists, elbows, shoulders and left knee. His pain has improved but he continues to have left knee pain for the last 2-3 weeks. Continues to have chronic low back pain nonradiating. He recently had intermittent chest pain and was evaluated by his intermission coordinator and referred for a stress test. [facility] Medical History (Updated 07/11/23 @ 09:52 by Marisela Neil MD) Symptomatic stenosis of left carotid artery Aortic stenosis Rheumatoid arthritis Carpal tunnel syndrome Former smoker Insulin pump in place Diabetes Elevated cholesterol CAD (coronary artery disease) HTN (hypertension) Surgical History History of left-sided carotid endarterectomy (02/15/23) Hx of carpal tunnel repair Hx of cardiac catheterization History of shoulder surgery History of cholecystectomy History of hand surgery Hx of hemorrhoidectomy Hx of lumbar discectomy H/O colonoscopy Family History Father Heart attack Heart disease Mother Pacemaker Cataracts, bilateral Sister Heart problem Heart valve replaced Arthritis Brother Heart attack Brother Rectal cancer Sister History of modified radical mastectomy of right breast Social History Household Members: None Housing: House Are you a primary point of care specialist to a significant other at home: No Do you presently have visiting nurse or other home services: No Alcohol intake: former Patient Tobacco Use Status: Former Tobacco user Quit Date: 1964 Tobacco use type: Cigarette Years Smoked: 5 YEARS Advance Directives Date on File: 02/07/23 service: No Current occupational status: employed Current occupation: [employer] Review of Systems Card Details: Lightheadedness Reports dyspnea on exertion Resp Reports dyspnea on exertion Musc Reports joint swelling, Reports numbness, Reports stiffness and Reports tingling Skin/Breast Details: Less bruising recently Neuro Reports numbness and Reports tingling Physical Exam Vital Signs: Last Vital Signs Temp 96.8 F 07/11/23 08:49 Pulse 84 07/11/23 08:49 BP 122/60 07/11/23 08:49 Pulse Ox 96 07/11/23 08:49 Oxygen Delivery Method Room Air 07/11/23 08:49 BMI result Body Mass Index 28.5 Const General: cooperative, healthy appearing, comfortable and no acute distress Nutritional Appearance: overweight Orientation/consciousness: patient oriented x3 Limitations: no limitations HEENT Head: Yes normocephalic and Yes atraumatic Resp Effort & Inspection: normal respiratory effort and able to speak in complete sentences Auscultation: crackles bilateral at the base Cardio Heart sounds: Murmur heart sound present systolic Skin Other: Multiple bruises with fragile skin on arms, forearms, hands and legs (chronic) Neuro General: patient oriented x3 Extrem Other: Minimal left wrist tenderness to palpation Normal range of motion of both shoulders Mild swelling at the right olecranon Right wrist swelling and warmth, some tenderness to palpation Left knee warmth, and swelling, mostly posteriorly (Gilman's cyst) Negative Bhavana's maneuvers Limited range of motion of both wrists (related to old surgery) No ankle or feet swelling or tenderness Office Procedures Joint Injection/Drain Joint Injection/Drain Primary Site: left knee Prep: site was prepped using sterile technique and ethochloride spray was applied Injected: 40 mg of, Kenalog and other (2 mL of 1% lidocaine) Approach Used: medial parapatellar Procedure: The patient tolerated the procedure well Coding Details: With the patient's consent the left knee was prepped with ChloraPrep and alcohol. The skin was anesthetized with 2 cc of 1% lidocaine. The knee was then injected with 40 mg of triamcinolone and 2 cc of I % lidocaine. The patient tolerated the procedure with no immediate adverse effects. - Large joint Procedure code (CPT) selection complete Results Reviewed Results Reviewed: Reviewed labs from 2021 which showed negative RF and negative CCP Assessment & Plan Assessment & Plan (1) Rheumatoid arthritis: Comment: Seronegative initially diagnosed has PMR around 2004 Was only on prednisone until 2021 when HCQ was added with little benefit MTX added 08/2022- -11/08 not particularly effective and patient developed tender skin nodule on LT forearm Enbrel 11/08-02/08 ineffective Actemra 03/11 effective Code(s): M06.9 - Rheumatoid arthritis, unspecified Qualifiers: Rheumatoid arthritis location: multiple sites Rheumatoid factor presence: without rheumatoid factor Qualified Code(s): M06.09 - Rheumatoid arthritis without rheumatoid factor, multiple sites Plan: This is an 83-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 On Actemra 162 mg every other week since 02/2023 with good results. On prednisone 5 mg daily. Since prednisone was tapered from 10 to 5 mg daily has been having recurrent joint pain and swelling. Increase prednisone to 7.5 mg daily for 1 month then 6 mg daily for 1 month Continue Actemra 162 mg every other week Continue hydroxychloroquine 200 mg daily Labs before next visit in 2 months (2) Olecranon bursitis, right elbow: Code(s): M70.21 - Olecranon bursitis, right elbow Plan: Per patient fluctuating right elbow swelling over the last 2 years. Patient has pain with right elbow pressure. Otherwise denies any elbow pain. In 2018 patient had recurrent left olecranon bursitis. Eventually he had a bursectomy. 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 03/2023, right olecranon bursitis was aspirated and injected with Kenalog. It showed 2600 WBCs with 100% lymphocytes. Bacterial cultures are negative, with no crystals. Mycobacterial cultures are pending. There is some recurrence of right elbow swelling today but barely symptomatic. 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 Has always been on at least 10 mg of prednisone for more than 15 years. Per patient recent multiple vertebral fractures in 2021. 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 Will refer patient to hand surgery (6) Aortic stenosis: Code(s): I35.0 - Nonrheumatic aortic (valve) stenosis Qualifiers: Cardiac valve disease etiology: nonrheumatic Qualified Code(s): I35.0 - Nonrheumatic aortic (valve) stenosis Plan: Patient getting progressively short of breath with exertion. Advised patient to follow-up with his intermission coordinator. (7) Thrombocytopenia: Code(s): D69.6 - Thrombocytopenia, unspecified Plan: Fluctuating but stable. Will monitor periodically Plan I spent 50 minutes reviewing patient's chart, evaluating patient, ordering diagnostic workup, counseling patient and documenting in the chart Orders: Orders Complete Blood Count Auto Diff 2 Months M06.9 - Rheumatoid arthritis, unspecified C Reactive Protein 2 Months M06.9 - Rheumatoid arthritis, unspecified Comprehensive Met. Panel 2 Months M06.9 - Rheumatoid arthritis, unspecified Erythrocyte Sedimentation Rate 2 Months M06.9 - Rheumatoid arthritis, unspecified AMB Joint Injection/Aspiration Today M17.12 - Unilateral primary osteoarthritis, left knee Referrals Hand Surgery Referral G56.02 - Carpal tunnel syndrome, left upper limb, G56.22 - Lesion of ulnar nerve, left upper limb Medications: New gabapentin 600 mg PO TID 90 tabs 2RF Discontinued sulfamethoxazole-trimethoprim 800-160 mg (Bactrim DS) Discontinued Reason: Patient Completed Course 1 tab PO BID 14 tabs 0RF Coding Level of Care Code Est Pt Level 5 (59648) Diagnoses Rheumatoid arthritis of multiple sites with negative rheumatoid factor M06.09 Rheumatoid arthritis location: multiple sites Rheumatoid factor presence: without rheumatoid factor Olecranon bursitis, right elbow M70.21 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 Numbness of finger R20.0 Nonrheumatic aortic valve stenosis I35.0 Cardiac valve disease etiology: nonrheumatic Thrombocytopenia D69.6 CPT Codes Coding - 95487 Large joint: 81990 - Large joint ([id number])
== END 2023-07-11 09:44 | disposition home or self-care (01) ==
PROVIDERS: PCP Internal Medicine; Visit Provider Student in an Organized Health Care Education/Training Program
DX: M06.09 Rheumatoid arthritis without rheumatoid factor, multiple sites (principal); M70.21 Olecranon bursitis, right elbow; M80.08XA Age-related osteoporosis with current pathological fracture, vertebra(e), initial encounter for fracture; Z79.899 Other long term (current) drug therapy; R20.0 Anesthesia of skin; I35.0 Nonrheumatic aortic (valve) stenosis; D69.6 Thrombocytopenia, unspecified; M17.12 Unilateral primary osteoarthritis, left knee
CPT/HCPCS: 20610; 99215

== ENCOUNTER → 2023-07-11 08:33 | Outpatient (BNVA) | payer MEDICARE, SELFPAY | PROVIDERS: PCP Internal Medicine; Visit Provider Student in an Organized Health Care Education/Training Program | DX: M06.09 Rheumatoid arthritis without rheumatoid factor, multiple sites (principal); M17.12 Unilateral primary osteoarthritis, left knee; M70.21 Olecranon bursitis, right elbow; M80.08XA Age-related osteoporosis with current pathological fracture, vertebra(e), initial encounter for fracture; R20.0 Anesthesia of skin; I35.0 Nonrheumatic aortic (valve) stenosis; D69.6 Thrombocytopenia, unspecified; Z79.52 Long term (current) use of systemic steroids; Z79.899 Other long term (current) drug therapy | CPT/HCPCS: 20610; 99212; J3301 ==

== ENCOUNTER 2023-08-11 08:14 | Outpatient (AMB) | payer MEDICARE, SELFPAY ==
--- NOTE | 2023-08-11 08:38 | MHC.OFFVIS ---
Intake Vital Signs 08/11/23 08:40 Height 5 ft 7 in Weight 179 lb BMI 28.0 BP 131/61 Blood Pressure Location Lt brachial Position Sitting Pulse 84 Intake Visit Reasons: follow up anemia Intake Note: Patient follow up for Anemia. Patient cc: dizziness, fatigue and tiredness, denies any other GI issues. 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 Accompanied by: Self / Same As Patient Allergies Penicillins Allergy (Severe, Verified 08/11/23 08:37) ITCHING-SEVERE piperacillin [From Zosyn] Allergy (Mild, Verified 08/11/23 08:37) JAUNDICE tazobactam [From Zosyn] Allergy (Mild, Verified 08/11/23 08:37) JAUNDICE HPI follow up anemia HPI Details 83 yr old m here for f/u Hx of microscopic colitis, DM, HLP, HTN and RA (on enbrel now) He had colonoscopy due to rectal bleeding and FH of CRC in brother Colonoscopy done 05/2020- diverticulosis, polyps one was adenoma, internal hemorrhoids I did an EGD due to anemia w/u and this revealed erosive gastritis---probbaly pill induced, maybe from steroids INTERIM: He is waiting for valve replacement he has no abdominal pain appetite is good no diarrhea or constipation HGB has been stable RA well controlled as is DM- but still on pred 4 mg EXAM: GENERAL: The patient is well developed and nontoxic, lots of bruises on arms VITAL SIGNS:see workflow HEENT: Nonicteric sclerae, PERRLA, EOMI. Oropharynx clear. Moist mucous membranes. Conjunctivae appear well perfused. No thyroid mass. CHEST: Chest wall is nontender. HEART: Regular rate and rhythm with ESM 3/6 goes into the neck LUNGS: Clear to auscultation bilaterally. ABDOMEN: Soft, positive bowel sounds, nontender, no organomegaly.no flank tenderness SKIN: No rash, + excessive bruising, NEUROLOGIC: Cranial nerves II-XII intact without motor/sensory deficit. A/P: Anemia, due to combination of mucosal bleeding from steroids, MTX, and gastritis, on PPI --HGb has been v stable at 13 g/dl PLAN: 1/ cont with PPI 2/ already taking a multi vitamin [facility] Medical History (Updated 07/11/23 @ 09:52 by Marisela Neil MD) Symptomatic stenosis of left carotid artery Aortic stenosis Rheumatoid arthritis Carpal tunnel syndrome Former smoker Insulin pump in place Diabetes Elevated cholesterol CAD (coronary artery disease) HTN (hypertension) Surgical History History of left-sided carotid endarterectomy (02/15/23) Hx of carpal tunnel repair Hx of cardiac catheterization History of shoulder surgery History of cholecystectomy History of hand surgery Hx of hemorrhoidectomy Hx of lumbar discectomy H/O colonoscopy Family History Father Heart attack Heart disease Mother Pacemaker Cataracts, bilateral Sister Heart problem Heart valve replaced Arthritis Brother Heart attack Brother Rectal cancer Sister History of modified radical mastectomy of right breast Social History Household Members: None Housing: House Are you a primary residential child care counselor to a significant other at home: No Do you presently have visiting nurse or other home services: No Alcohol intake: former Patient Tobacco Use Status: Former Tobacco user Quit Date: 1964 Tobacco use type: Cigarette Years Smoked: 5 YEARS Advance Directives Date on File: 02/07/23 service: No Current occupational status: employed Current occupation: [employer] Physical Exam Vital Signs: Last Vital Signs Pulse 84 08/11/23 08:40 BP 131/61 08/11/23 08:40 BMI result Body Mass Index 28.0 Assessment & Plan Assessment & Plan (1) Anemia: Code(s): D64.9 - Anemia, unspecified Plan: PLAN: 1/ cont with PPI 2/ already taking a multi vitamin Coding Level of Care Code Est Pt Level 3 (07643) Diagnoses Anemia D64.9
[2023-08-11 08:40] VITALS: BP 131/61; PULSE 84; BMI 28.0
== END 2023-08-11 09:03 | disposition home or self-care (01) ==
PROVIDERS: PCP Internal Medicine; Visit Provider Internal Medicine Gastroenterology
DX: D64.9 Anemia, unspecified (principal)
CPT/HCPCS: 99213

== ENCOUNTER → 2023-08-11 08:14 | Outpatient (BNVA) | payer MEDICARE, SELFPAY | PROVIDERS: PCP Internal Medicine; Visit Provider Internal Medicine Gastroenterology | DX: D64.9 Anemia, unspecified (principal) | CPT/HCPCS: 99212 ==

== ENCOUNTER 2023-08-17 15:02 | Outpatient (REF) | payer MEDICARE, SELFPAY ==
[2023-08-17 15:33] LABS: Basophils Percent Auto 0.6 % (0-2); Eosinophils Percent Auto 0.8 % (0-4); Hematocrit 44.6 % (42.0-52.0); Hemoglobin 14.1 g/dl (14.0-18.0); Imm Gran Abs Auto 0.01 X10*3/uL (0.00-0.03); Imm Gran Pct Auto 0.2 % (0.0-0.4); Lymphocytes Absolute Auto 1.5 X10*3/uL (1.2-4.9); Lymphocytes Percent Auto 31.2 % (20-40); MANUAL DIFF FLAG SCAN; Mean Corpuscular HGB Conc 31.6 g/dl (31.0-36.0); Mean Corpuscular Hemoglobin 27.2 pg (27.0-33.0); Mean Corpuscular Volume 85.9 fL (80.0-98.0); Mean Platelet Volume 9.2 fL (9.4-12.4); Monocytes Absolute Auto 1.1 X10*3/uL (0.1-1.2); Monocytes Percent Auto 22.1 % (2-11); Neutrophils Absolute Auto 2.1 x10*3/uL (2.0-8.3); Neutrophils Percent Auto 45.1 % (45-73); Platelet Count 135 X10*3/uL (160-400); Red Blood Count 5.19 X10*6/uL (4.60-5.80); Red Cell Distribution Width 13.4 % (11.0-16.0); SCAN SMEAR FLAG 1; White Blood Count 4.8 X10*3/uL (4.8-10.8)
[2023-08-17 15:53] LABS: SLIDE REVIEW VERIFIED
[2023-08-17 15:56] LABS: Alanine Aminotransferase 36 U/L (0-40); Albumin Level 4.3 g/dL (3.5-5.0); Alkaline Phosphatase 92 U/L (39-117); Anion Gap 11 (12-20); Aspartate Amino Transferase 32 U/L (5-37); Bilirubin Total 1.1 mg/dL (0.0-1.0); Blood Urea Nitrogen 19 mg/dL (9-16); C Reactive Protein < 0.04 mg/dL (< or = 0.50); Calcium 9.9 mg/dL (8.4-10.2); Carbon Dioxide 30 mmol/L (22-29); Chloride 105 mmol/L (96-108); Estimated Glomerular Filt Rate > 60; Glucose Random 125 mg/dL (60-115); Potassium 4.6 mmol/L (3.3-5.1); Sodium 141 mmol/L (135-145); Total Protein 6.1 g/dL (6.5-8.0)
[2023-08-17 16:22] LABS: Erythrocyte Sedimentation Rate 1 MM/HR (0-15)
== END 2023-08-17 15:03 | disposition home or self-care (01) ==
LOC: HO.LAB 15:02
PROVIDERS: Visit Provider Student in an Organized Health Care Education/Training Program
DX: M06.09 Rheumatoid arthritis without rheumatoid factor, multiple sites (principal)
CPT/HCPCS: 36415; 80053; 85025; 85652; 86140

== ENCOUNTER 2023-08-22 08:59 | Outpatient (REF) | payer MEDICARE, SELFPAY ==
[2023-08-22 10:05] LABS: Basophils Percent Auto 0.8 % (0-2); Eosinophils Absolute Auto 0.1 X10*3/uL (0.0-0.4); Eosinophils Percent Auto 1.4 % (0-4); Hemoglobin 13.1 g/dl (14.0-18.0); Lymphocytes Absolute Auto 1.2 X10*3/uL (1.2-4.9); Lymphocytes Percent Auto 32.4 % (20-40); MANUAL DIFF FLAG SCAN; Mean Corpuscular Hemoglobin 27.3 pg (27.0-33.0); Mean Corpuscular Volume 85.4 fL (80.0-98.0); Mean Platelet Volume 9.5 fL (9.4-12.4); Monocytes Absolute Auto 0.9 X10*3/uL (0.1-1.2); Monocytes Percent Auto 25.4 % (2-11); Neutrophils Absolute Auto 1.5 x10*3/uL (2.0-8.3); Platelet Count 137 X10*3/uL (160-400); Red Cell Distribution Width 13.5 % (11.0-16.0); SCAN SMEAR FLAG 1; White Blood Count 3.7 X10*3/uL (4.8-10.8)
[2023-08-22 10:35] LABS: Alanine Aminotransferase 32 U/L (0-40); Alkaline Phosphatase 93 U/L (39-117); Anion Gap 12 (12-20); Aspartate Amino Transferase 31 U/L (5-37); Bilirubin Total 0.9 mg/dL (0.0-1.0); Blood Urea Nitrogen 17 mg/dL (9-16); C Reactive Protein < 0.04 mg/dL (< or = 0.50); Calcium 9.6 mg/dL (8.4-10.2); Carbon Dioxide 29 mmol/L (22-29); Chloride 105 mmol/L (96-108); Estimated Glomerular Filt Rate > 60; Glucose Random 195 mg/dL (60-115); Potassium 4.1 mmol/L (3.3-5.1); Sodium 142 mmol/L (135-145); Total Protein 5.6 g/dL (6.5-8.0)
[2023-08-22 10:43] LABS: Erythrocyte Sedimentation Rate 1 MM/HR (0-15)
[2023-08-22 12:37] LABS: SLIDE REVIEW VERIFIED
== END 2023-08-22 09:00 | disposition home or self-care (01) ==
LOC: HO.LAB 08:59
PROVIDERS: PCP Internal Medicine; Visit Provider Student in an Organized Health Care Education/Training Program
DX: M06.09 Rheumatoid arthritis without rheumatoid factor, multiple sites (principal); M70.21 Olecranon bursitis, right elbow; R20.0 Anesthesia of skin; I35.0 Nonrheumatic aortic (valve) stenosis; D69.6 Thrombocytopenia, unspecified; M80.08XA Age-related osteoporosis with current pathological fracture, vertebra(e), initial encounter for fracture; Z79.899 Other long term (current) drug therapy
CPT/HCPCS: 36415; 80053; 85025; 85652; 86140; 99212

== ENCOUNTER 2023-08-22 09:42 | Outpatient (AMB) | payer MEDICARE, SELFPAY ==
--- NOTE | 2023-08-22 10:13 | MHC.OFFVIS ---
Intake Vital Signs 08/22/23 10:14 Height 5 ft 7 in Weight 179 lb 3.773 oz BMI 28.1 BP 128/62 Position Sitting Pulse 85 Pulse Source Pulse Oximeter Temp Source Skin Pulse Oximetry (%) 95 Oxygen Delivery Method Room Air Intake Visit Reasons: Right arm pain Intake Note: Pt presents today for follow up after EMG testing. C/o R arm pain, feels like electric shock. Pain comes and goes. Reports pain started on L arm/hand; mentions cat bite on L hand many years ago. Also reports dizzy spells that randomly come on and he feels like he is going to pass out. Has upcoming heart surgery with Dr Grider. General Internal Medicine Doctor Required: No Accompanied by: Self / Same As Patient Allergies Penicillins Allergy (Severe, Verified 08/22/23 10:27) ITCHING-SEVERE piperacillin [From Zosyn] Allergy (Mild, Verified 08/22/23 10:27) JAUNDICE tazobactam [From Zosyn] Allergy (Mild, Verified 08/22/23 10:27) JAUNDICE Medication List - Last Reconciled 08/22/23 by Marisela Neil MD acetaminophen ER (Tylenol 8 Hour) 650 mg PO Q8H PRN Actemra ACTPen (tocilizumab) 162 mg (0.9 mL) subcut Q2W NS aspirin 81 mg PO DAILY atorvastatin mg PO calcium citrate 1,600 mg PO BID cholecalciferol (vitamin D3) 50 mcg PO BID citalopram 20 mg PO DAILY cyclobenzaprine 10 mg PO DAILY docusate sodium (Colace) 100 mg PO BID furosemide mg PO gabapentin 600 mg PO TID hydroxychloroquine 200 mg PO DAILY [Novolog U-100 Insulin aspart via TANDEM insulin pump] omeprazole 20 mg PO BID pilocarpine HCl 5 mg PO BID polyethylene glycol 3350 (Miralax) 17 grams PO DAILY prednisone 4 mg PO DAILY tamsulosin 0.4 mg PO BEDTIME testosterone cypionate 60 mg IM TU vitamins A,C,W-qegu-cgcfdy 4,296 mcg-226 mg-90 mg (PreserVision AREDS) 1 cap PO BID HPI HPI Comments History of Present Illness Details 83-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 Patient stated that he has been having electric shock-like sensation that starts at the tip of his right thumb that travels all the way up his arm. Denies any neck pain. He has an appointment with hand surgeon tomorrow. His left knee pain is much better but continues to be intermittently sore. He has been having dizzy spells and shortness of breath. He will be getting a heart catheterization procedure as part of the planning for transcatheter aortic valve replacement. He is on Actemra every other week, prednisone 4 mg daily and hydroxychloroquine 200 mg daily. Initial history: This is an 82-year-old male referred from the [place] with complex past medical history including diabetes mellitus on insulin pump, dyslipidemia, CAD, PMR, rheumatoid arthritis who presents for evaluation of rheumatoid arthritis. 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 Patient stated he was diagnosed with PMR more than [address] Nichole, he stated that he was started on prednisone 20 mg which would be tapered down to 10 mg and as soon as he is on lower than 10 mg he starts flaring with diffuse joint pain. He then followed with Dr. alfaro and most recently with Gisselle Taylor. Patient has had numerous surgeries due to his rheumatoid arthritis, he states that his carpal bones are fused bilaterally, he also had right wrist surgery, he has SLAP repair surgery for his left shoulder and rotator cuff repair for his right shoulder. He also had a bursectomy for his left elbow. He was started on hydroxychloroquine a few months ago by Gisselle Taylor and he is not sure if it is helping. He also has history of osteoporosis complicated by multiple vertebral fractures in 2021 which were quite painful. He was started on Fosamax once weekly by Gisselle Taylor. About a month ago he had a flare up of diffuse joint pain that was attributed to Fosamax. Since then Fosamax had been stopped. Prednisone was increased back to 15 mg by his PCP. He states that he had a flare-up affecting his wrists, elbows, shoulders and left knee. His pain has improved but he continues to have left knee pain for the last 2-3 weeks. Continues to have chronic low back pain nonradiating. 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 [facility] Medical History Symptomatic stenosis of left carotid artery Aortic stenosis Rheumatoid arthritis Carpal tunnel syndrome Former smoker Insulin pump in place Diabetes Elevated cholesterol CAD (coronary artery disease) HTN (hypertension) Surgical History History of left-sided carotid endarterectomy (02/15/23) Hx of carpal tunnel repair Hx of cardiac catheterization History of shoulder surgery History of cholecystectomy History of hand surgery Hx of hemorrhoidectomy Hx of lumbar discectomy H/O colonoscopy Family History Father Heart attack Heart disease Mother Pacemaker Cataracts, bilateral Sister Heart problem Heart valve replaced Arthritis Brother Heart attack Brother Rectal cancer Sister History of modified radical mastectomy of right breast Social History Household Members: None Housing: House Are you a primary floor care specialist to a significant other at home: No Do you presently have visiting nurse or other home services: No Alcohol intake: former Patient Tobacco Use Status: Former Tobacco user Quit Date: 1964 Tobacco use type: Cigarette Years Smoked: 5 YEARS Advance Directives Date on File: 02/07/23 service: No Current occupational status: employed Current occupation: [employer] Review of Systems Card Details: Lightheadedness Reports dyspnea on exertion Resp Reports dyspnea on exertion Musc Reports numbness and Reports tingling Skin/Breast Details: Less bruising recently Neuro Reports numbness and Reports tingling Physical Exam Vital Signs: Last Vital Signs Pulse 85 08/22/23 10:14 BP 128/62 08/22/23 10:14 Pulse Ox 95 08/22/23 10:14 Oxygen Delivery Method Room Air 08/22/23 10:14 BMI result Body Mass Index 28.1 Const General: cooperative, healthy appearing, comfortable and no acute distress Nutritional Appearance: overweight Orientation/consciousness: patient oriented x3 Limitations: no limitations HEENT Head: Yes normocephalic and Yes atraumatic Resp Effort & Inspection: normal respiratory effort and able to speak in complete sentences Auscultation: crackles bilateral at the base Cardio Heart sounds: Murmur heart sound present systolic Skin Other: Multiple bruises with fragile skin on arms, forearms, hands and legs (chronic) Neuro General: patient oriented x3 Extrem Other: No wrist swelling or tenderness bilaterally Normal range of motion of both shoulders Mild swelling at the right olecranon Significantly improved left knee warmth swelling and pain with range of motion. No ankle or feet swelling or tenderness Negative Tinel sign on the right Results Reviewed Results Reviewed: Reviewed labs from 2021 which showed negative RF and negative CCP Assessment & Plan Assessment & Plan (1) Rheumatoid arthritis: Comment: Seronegative initially diagnosed has PMR around 2004 Was only on prednisone until 2021 when HCQ was added with little benefit MTX added 08/2022- -11/08 not particularly effective and patient developed tender skin nodule on LT forearm Enbrel 11/08-02/08 ineffective Actemra 03/11 effective Code(s): M06.9 - Rheumatoid arthritis, unspecified Qualifiers: Rheumatoid arthritis location: multiple sites Rheumatoid factor presence: without rheumatoid factor Qualified Code(s): M06.09 - Rheumatoid arthritis without rheumatoid factor, multiple sites Plan: This is an 83-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 On Actemra 162 mg every other week, prednisone 4 mg daily, hydroxychloroquine 200 mg daily. Doing quite well with no active synovitis on exam, inflammatory markers normal. Continue current treatment, advised patient that he can slowly taper his prednisone to 3 mg daily over a few weeks. Labs before next visit in 3 months (2) Olecranon bursitis, right elbow: Code(s): M70.21 - Olecranon bursitis, right elbow Plan: Per patient fluctuating right elbow swelling over the last 2-3 years. Patient has pain with right elbow pressure. Otherwise denies any elbow pain. In 2018 patient had recurrent left olecranon bursitis. Eventually he had a bursectomy. 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 03/2023, right olecranon bursitis was aspirated and injected with Kenalog. It showed 2600 WBCs with 100% lymphocytes. Bacterial cultures are negative, with no crystals. Mycobacterial cultures are negative Patient has not had any recurrence. 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 Has always been on at least 10 mg of prednisone for more than 15 years. Per patient recent multiple vertebral fractures in 2021. He follows up with endocrinology and is on testosterone and Prolia (4) Long-term use of hydroxychloroquine: Code(s): Z79.899 - Other long-term (current) drug therapy Plan: Patient follows-up regularly with Ophthalmology (5) Numbness of finger: Code(s): R20.0 - Anesthesia of skin Plan: Left upper extremity EMG/NCV showed cubital and carpal tunnel syndrome. Just recently patient has been having electric shock-like sensation that starts in the right thumb and travels up his right arm. He has a follow-up appointment with hand surgeon tomorrow (6) Aortic stenosis: Code(s): I35.0 - Nonrheumatic aortic (valve) stenosis Qualifiers: Cardiac valve disease etiology: nonrheumatic Qualified Code(s): I35.0 - Nonrheumatic aortic (valve) stenosis Plan: Recently getting progressive he wrote of breath with exertion as well as getting dizzy spells. He is planned for cardiac catheterization in anticipation for transcatheter aortic valve replacement (7) Thrombocytopenia: Code(s): D69.6 - Thrombocytopenia, unspecified Plan: Fluctuating but stable. Will monitor periodically Plan I spent 45 minutes reviewing patient's chart, evaluating patient, ordering diagnostic workup, counseling patient and documenting in the chart Orders: Orders Comprehensive Met. Panel 3 Months M06.9 - Rheumatoid arthritis, unspecified C Reactive Protein 3 Months M06.9 - Rheumatoid arthritis, unspecified Erythrocyte Sedimentation Rate 3 Months M06.9 - Rheumatoid arthritis, unspecified Complete Blood Count Auto Diff 3 Months M06.9 - Rheumatoid arthritis, unspecified Medications: New prednisone 4 mg (4 x 1 mg) PO DAILY 120 tabs 2RF Coding Level of Care Code Est Pt Level 5 (75550) Diagnoses Rheumatoid arthritis of multiple sites with negative rheumatoid factor M06.09 Rheumatoid arthritis location: multiple sites Rheumatoid factor presence: without rheumatoid factor Olecranon bursitis, right elbow M70.21 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 Numbness of finger R20.0 Nonrheumatic aortic valve stenosis I35.0 Cardiac valve disease etiology: nonrheumatic Thrombocytopenia D69.6
[2023-08-22 10:14] VITALS: BP 128/62; PULSE 85; O2SAT 95; BMI 28.1
== END 2023-08-22 10:50 | disposition home or self-care (01) ==
PROVIDERS: PCP Internal Medicine; Visit Provider Student in an Organized Health Care Education/Training Program
DX: M06.09 Rheumatoid arthritis without rheumatoid factor, multiple sites (principal); M70.21 Olecranon bursitis, right elbow; M80.08XA Age-related osteoporosis with current pathological fracture, vertebra(e), initial encounter for fracture; Z79.899 Other long term (current) drug therapy; R20.0 Anesthesia of skin; I35.0 Nonrheumatic aortic (valve) stenosis; D69.6 Thrombocytopenia, unspecified
CPT/HCPCS: 99214

== ENCOUNTER 2023-08-23 09:22 | Outpatient (REF) | payer MEDICARE, SELFPAY ==
--- NOTE | ~2023-08-23 | XR_ITS ---
EXAMINATION: 1. RADIOGRAPHS RIGHT HAND 2. RADIOGRAPHS LEFT HAND CLINICAL INFORMATION: Bilateral hand pain COMPARISON: None TECHNIQUE: 3 views of each hand were obtained FINDINGS: Right hand: Fixation plate and screws extending from the distal radius through the carpal bones and are anchored within the proximal aspect of the third metacarpal. The spleen is fractured in the region of the wrist and 2 fixation screws within the proximal aspect of the third metacarpal are also fractured. There are severe degenerative changes of the right wrist with obliteration of the carpal rows. The distal aspect of the ulna is suspected to be surgically absent. There are mild diffuse degenerative changes of the MCP and IP joints. I do not appreciate an acute fracture within the right hand. Facet calcifications noted. Left hand: Visualized portion of the distal radius and ulna demonstrate no fracture. There is severe degenerative changes of the radiocarpal joint with severe degenerative changes of the wrist with obliteration of the carpal rows and suspected absence of the scaphoid bone. There are mild diffuse degenerative changes of scattered IP joints. No acute fracture of the hand. Facet calcifications noted. XR/XR hand RT min 3V IMPRESSION: 1. Severe degenerative changes of both wrists. 2. No acute fracture of either hand. 3. Surgical hardware of the right wrist and hand is compromised as described above.
--- NOTE | ~2023-08-23 | XR_ITS ---
EXAMINATION: 1. RADIOGRAPHS RIGHT HAND 2. RADIOGRAPHS LEFT HAND CLINICAL INFORMATION: Bilateral hand pain COMPARISON: None TECHNIQUE: 3 views of each hand were obtained FINDINGS: Right hand: Fixation plate and screws extending from the distal radius through the carpal bones and are anchored within the proximal aspect of the third metacarpal. The spleen is fractured in the region of the wrist and 2 fixation screws within the proximal aspect of the third metacarpal are also fractured. There are severe degenerative changes of the right wrist with obliteration of the carpal rows. The distal aspect of the ulna is suspected to be surgically absent. There are mild diffuse degenerative changes of the MCP and IP joints. I do not appreciate an acute fracture within the right hand. Facet calcifications noted. Left hand: Visualized portion of the distal radius and ulna demonstrate no fracture. There is severe degenerative changes of the radiocarpal joint with severe degenerative changes of the wrist with obliteration of the carpal rows and suspected absence of the scaphoid bone. There are mild diffuse degenerative changes of scattered IP joints. No acute fracture of the hand. Facet calcifications noted. XR/XR hand LT min 3V IMPRESSION: 1. Severe degenerative changes of both wrists. 2. No acute fracture of either hand. 3. Surgical hardware of the right wrist and hand is compromised as described above.
== END 2023-08-23 09:23 | disposition home or self-care (01) ==
LOC: HO.HOSX 09:22
PROVIDERS: PCP Internal Medicine; Visit Provider Physician Assistant
DX: M79.642 Pain in left hand (principal); M79.641 Pain in right hand; M19.031 Primary osteoarthritis, right wrist; M19.032 Primary osteoarthritis, left wrist; G56.02 Carpal tunnel syndrome, left upper limb; G56.01 Carpal tunnel syndrome, right upper limb; Z96.9 Presence of functional implant, unspecified
CPT/HCPCS: 73130; 99202

== ENCOUNTER 2023-08-23 09:22 | Outpatient (AMB) | payer MEDICARE, SELFPAY ==
[2023-08-23 10:10] VITALS: BMI 28.0
--- NOTE | 2023-08-23 10:10 | A.OFFVIS_ITS ---
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 Patient reports he is having numbness and tingling for the 2-3 months. Reports his symptoms comes and goes though out the day. Patient has tried bracing, injections and O.T with no help . Hx of bilateral hand CTR and carpo fusion about 30 years ago. EMG done. 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 He states he has intermittent numbness, tingling, and a ?shock sensation? in his bilateral hand which is worse on the left hand for the past 2-3 months. He has tried bracing, injection and occupational therapy without benefits. He has a history of bilateral hand CTR and carpal fusion about 30 years ago. [facility] Medical History Symptomatic stenosis of left carotid artery Aortic stenosis Rheumatoid arthritis Carpal tunnel syndrome Former smoker Insulin pump in place Diabetes Elevated cholesterol CAD (coronary artery disease) HTN (hypertension) Surgical History History of left-sided carotid endarterectomy (02/15/23) Hx of carpal tunnel repair Hx of cardiac catheterization History of shoulder surgery History of cholecystectomy History of hand surgery Hx of hemorrhoidectomy Hx of lumbar discectomy H/O colonoscopy Family History Father Heart attack Heart disease Mother Pacemaker Cataracts, bilateral Sister Heart problem Heart valve replaced Arthritis Brother Heart attack Brother Rectal cancer Sister History of modified radical mastectomy of right breast Social History Household Members: None Housing: House Are you a primary customer care associate to a significant other at home: No Do you presently have visiting nurse or other home services: No Alcohol intake: former Patient Tobacco Use Status: Former Tobacco user Quit Date: 1962 Tobacco use type: Cigarette Years Smoked: 5 YEARS Advance Directives Date on File: 02/07/23 service: No Current occupational status: employed Current occupation: [employer] Review of Systems Const All systems reviewed & are unremarkable except as noted in HPI and below Physical Exam Vital Signs: BMI result Body Mass Index 28.0 Const General: cooperative, healthy appearing, comfortable, no acute distress, well developed and alert Orientation/consciousness: patient oriented x3 HEENT Head: Yes normal to inspection, Yes normocephalic and Yes atraumatic Eyes General: appearance normal, both eyes and all related structures Resp Effort & Inspection: normal respiratory effort and able to speak in complete sentences Cardio Rate: regular rate Peripheral pulses: Peripheral pulses 2+ throughout GI Palpation (GI): Soft to palpation Skin Lesions: no lesions Rashes: no rashes Neuro General: patient oriented x3 Extrem Other: Right hand: Surgical scar present. No tenderness over the hardware which is at the dorsum of his hand and wrist. He has dense numbness along the median nerve distribution of hand. No thenar wasting. APB muscle is intact. Left wrist: Normal to inspection. CTR scar is present and intact. He has limited motion in his wrist due to severe arthritis. He has dense numbness along the median nerve distribution. No thenar wasting noted. APB is intact. Results Reviewed Results Reviewed: EMG/NCS IMPRESSION: 1. 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 2. 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 Assessment & Plan Assessment & Plan (1) Left carpal tunnel syndrome: Code(s): G56.02 - Carpal tunnel syndrome, left upper limb (2) Carpal tunnel syndrome on right: Code(s): G56.01 - Carpal tunnel syndrome, right upper limb (3) Retained orthopedic hardware: Code(s): Z96.9 - Presence of functional implant, unspecified (4) Osteoarthritis of wrists, bilateral: Code(s): M19.031 - Primary osteoarthritis, right wrist; M19.032 - Primary osteoarthritis, left wrist Qualifiers: Osteoarthritis type: primary Qualified Code(s): M19.031 - Primary osteoarthritis, right wrist; M19.032 - Primary osteoarthritis, left wrist Plan Dr. Pack was available to see the patient with me today. We discussed options which include FIONA of right wrist which we will not be doing as he has no pain along the site. He has numbness in his right wrist therefore we will order a nerve conduction study to further evaluate the etiology of his numbness. We did also discuss CTR and cubital tunnel release on the left wrist as he had severe neuropathy as shown in the EMG. He is pending an aortic valve procedure and this may require penitentiary anticoagulant therapy, so we would hold off on any type of procedure which may require the use of general anesthesia for 6 months. If we proceed with left CTR, we can do it without needing to stop the anticoagulant therapy, but of note it will be a repeat ctr. We will go ahead and start with the paperwork and in the meantime, he will proceed with cardiac workup and move forward accordingly. Orders: Orders XR hand RT min 3V 08/23/23 M79.641 - Pain in right hand NE electromyogram (EMG) 08/23/23 R20.0 - Anesthesia of skin, R20.2 - Paresthesia of skin XR hand LT min 3V 08/23/23 M79.642 - Pain in left hand NE nerve conduction velocity 08/23/23 R20.0 - Anesthesia of skin, R20.2 - Paresthesia of skin Patient Instructions: Scribed for Deven Jerome PA-C, by Yonis Cooley nuclear medicine medical director, on 08/23/2023 at 10:00 AM EST. I, Deven Jerome PA-C, have personally reviewed and agree with the information entered by the scribe. Coding Level of Care Code New Pt Level 3 (73675) Diagnoses Left carpal tunnel syndrome G56.02 Carpal tunnel syndrome on right G56.01 Retained orthopedic hardware Z96.9 Primary osteoarthritis of both wrists M19.031; M19.032 Osteoarthritis type: primary
== END 2023-08-23 11:51 | disposition home or self-care (01) ==
PROVIDERS: PCP Internal Medicine; Visit Provider Physician Assistant
DX: G56.03 Carpal tunnel syndrome, bilateral upper limbs (principal); Z96.9 Presence of functional implant, unspecified; M19.031 Primary osteoarthritis, right wrist; M19.032 Primary osteoarthritis, left wrist
CPT/HCPCS: 99203

== ENCOUNTER 2023-09-15 09:26 | Outpatient (REF) | payer MEDICARE, SELFPAY ==
--- NOTE | 2023-09-15 09:29 | EMG_ITS ---
Chief complaint: right wrist pain and finger numbness Severe degenerative changes of both wrists. History of right wrist fusion with hardware. History of right CTS surgery 60 years ago. Diabetic for the last 30 years. Insulin pump. History of RA. On chronic prednisone. Reason for referral: Evaluate for Carpal Tunnel Syndrome Referred by: Deven BELTRAN Procedure done: Right upper extremity NCS/EMG Precautions and/or limitations: None The limb temperature was monitored continuously and remained between 32-36 degrees C during the performance of the NCS. Nerve Conduction Studies Anti Sensory Summary Table ?Stim Site NR Onset (ms) Norm Onset (ms) Peak (ms) Norm Peak (ms) O-P Amp (?V) Norm O-P Amp Site1 Site2 Delta-0 (ms) Dist (cm) Samir (m/s) Norm Samir (m/s) Right Median Anti Sensory (2nd Digit) Wrist ? 3.8 4.6 <3.6 3.6 >10 Wrist 2nd Digit 3.8 14.0 37 Right Radial Anti Sensory (Thumb) Forearm ? 2.0 2.7 <3.1 6.1 Forearm Thumb 2.0 0.0 Right Ulnar Anti Sensory (5th Digit) Wrist ? 2.6 3.7 <3.7 4.1 >15.0 Wrist 5th Digit 2.6 14.0 54 Motor Summary Table ?Stim Site NR Onset (ms) Norm Onset (ms) O-P Amp (mV) Norm O-P Amp iAmp (mV) Amp (1st) (%) Site1 Site2 Delta-0 (ms) Dist (cm) Samir (m/s) Norm Samir (m/s) Right Median Motor (Abd Poll Brev) Wrist ? 4.8 <3.9 3.7 >4.5 4.3 100.0 Elbow Wrist 4.5 22.0 49 >45 Elbow ? 9.3 3.8 4.4 102.7 Right Ulnar Motor (Abd Dig Minimi) Wrist ? 2.9 <3.0 6.4 >5 8.0 100.0 B Elbow Wrist 4.4 21.0 48 >45 B Elbow ? 7.3 5.6 7.1 87.5 A Elbow B Elbow 1.8 10.0 56 >45 A Elbow ? 9.1 5.6 7.0 87.5 EMG ?Side Muscle Nerve Root Ins Act Fibs Psw Amp Dur Poly Recrt Int Pat Comment Right 1stDorInt Ulnar C8-T1 Nml Nml Nml Nml Nml 0 Nml Complete Right FlexCarRad Median C6-7 Nml Nml Nml Nml Nml 0 Nml Complete Right Biceps Musculocut C5-6 Nml Nml Nml Nml Nml 0 Nml Complete Right Triceps Radial C6-7-8 Nml Nml Nml Nml Nml 0 Nml Complete Right Deltoid Axillary C5-6 Nml Nml Nml Nml Nml 0 Nml Complete FINDINGS: Right median motor nerve showed prolonged distal latency, small amplitude and normal conduction velocity. Right median sensory nerve showed prolonged peak latency. All other nerves tested were within normal. Concentric needle EMG was performed in selected muscles of the right upper extremity. Study did not reveal signs of electric abnormalities as shown in the table below. IMPRESSION: 1. This is an abnormal study. 2. There is electrodiagnostic evidence for right moderate-severe median neuropathy at the wrist, consistent with carpal tunnel syndrome. 3. There is no electrodiagnostic evidence for ulnar neuropathy, brachial plexopathy, or cervical radiculopathy. Thank you for your kind referral. Lexie Mcghee MD, ROMEL Board Certified, [place] [employer] and Rehabilitation (ABPMR) Board Certified, [place] Board of Electrodiagnostic Medicine (ABEM) COD[place] [id number] [facility]
== END 2023-09-15 09:27 | disposition home or self-care (01) ==
LOC: HO.NEURO 09:26
PROVIDERS: PCP Internal Medicine; Visit Provider Physician Assistant
DX: R20.0 Anesthesia of skin (principal); R20.2 Paresthesia of skin
CPT/HCPCS: 95886; 95909

== ENCOUNTER → 2023-09-15 09:29 | Outpatient (BNV) | payer MEDICARE, SELFPAY | PROVIDERS: PCP Internal Medicine; Visit Provider Physical Medicine & Rehabilitation | DX: G56.01 Carpal tunnel syndrome, right upper limb (principal); G56.11 Other lesions of median nerve, right upper limb | CPT/HCPCS: 95886; 95909 ==

== ENCOUNTER 2023-09-25 19:59 | Outpatient (REF) | payer MEDICARE, SELFPAY ==
--- NOTE | ~2023-09-25 | MR_ITS ---
EXAMINATION: MR KNEE WITHOUT CONTRAST, LEFT CLINICAL INFORMATION: Left knee pain, unspecified internal derangement. COMPARISON: 07/19/2022 TECHNIQUE: MRI of the knee without contrast was performed using routine sequences on a high-field scanner. FINDINGS: MENISCI: Medial Meniscus: There is a complex tear of the posterior horn and body with a dominant horizontal component and a displaced undersurface flap fragment at the meniscal body. Surrounding soft tissues are edematous. Lateral Meniscus: There is an ill-defined complex tear of the posterior root sparing only a few peripheral fibers. A horizontal component of the tear propagates into the meniscal body which is partially extruded. LIGAMENTS: Cruciate: An ill-defined partial tear is suspected at the ACL origin with surrounding edema signal. PCL is thickened and edematous with a linear band of increased intrasubstance signal. Collateral: An ill-defined partial tear is evident at the MCL origin on the medial femoral condyle, sparing the superficial fibers, likely subacute to chronic. Fibular collateral ligament is intact. There is a defect in the joint capsule posteriorly over an area measuring 2.4 x 2 cm which likely corresponds to a combination of a partial tear of the lateral head of the gastrocnemius muscle as well as the underlying capsule. EXTENSOR MECHANISM: Enthesopathic spurring is present at the quadriceps tendon insertion on the patella with moderate tendinosis. No tears. ARTICULAR CARTILAGE/BONE: Patellofemoral Compartment: Tbrcketd-rf-nmgifj nonuniform articular cartilage loss is present at the patella with associated cortical irregularity and marginal osteophytes. More mild chondral thinning and surface irregularity are present at the trochlea. Medial Compartment: Agen-yw-rxnmmrms nonuniform articular cartilage loss is present at the medial femoral condyle and medial tibial plateau weightbearing surfaces. Small marginal osteophytes. Lateral Compartment: There is gqur-eg-vvihzgmc nonuniform cartilage loss at the posterior half of the lateral tibial plateau. More minimal chondral thinning at the lateral femoral condyle. JOINT FLUID AND BURSAE: Moderate-sized joint effusion. MR/MR knee LT wo con IMPRESSION: 1. Complex tear of the posterior horn and body of the medial meniscus with a displaced undersurface flap fragment at the meniscal body. 2. Complex tear of the posterior root of the lateral meniscus with partial extrusion of the meniscal body. 3. Ill-defined partial tear of the ACL origin, likely subacute to chronic. Abnormal signal intensity within the PCL is also likely due to a partial tear or mucoid degeneration. 4. Partial tear of the MCL origin, likely subacute to chronic. 5. Partial tear of the lateral head of the gastrocnemius muscle and posterior joint capsule. 6. Zjhv-zb-eiisbgzw tricompartmental osteoarthritis, most pronounced in the patellofemoral compartment. 7. Moderate-sized joint effusion.
== END 2023-09-25 20:00 | disposition home or self-care (01) ==
LOC: HO.MRI 19:59
PROVIDERS: PCP Internal Medicine; Visit Provider Student in an Organized Health Care Education/Training Program
DX: M23.92 Unspecified internal derangement of left knee (principal)
CPT/HCPCS: 73721

== ENCOUNTER 2023-10-20 08:41 | Outpatient (REF) | payer MEDICARE, SELFPAY ==
--- NOTE | ~2023-10-20 | XR_ITS ---
EXAMINATION: XR UPRIGHT VIEWS BOTH KNEES: LEFT KNEE 2 ADDITIONAL VIEWS CLINICAL INFORMATION: Pain in the knee. COMPARISON: MRI of the left knee September 2023. TECHNIQUE: Upright view of both knees. Lateral and patella view left knee. FINDINGS: LEFT KNEE: There are small marginal osteophytes about the medial compartment and patellofemoral compartment without joint space narrowing indicative of mild osteoarthritis as seen on recent MRI. There is a small effusion. There is a prominent area of ossification/calcification within the extensor tendon region overlying a portion of the proximal patella as seen on recent MRI. This could reflect calcific tendinosis or reactive change related to old partial tear versus a prominent patellar spur. Prominent arterial calcification noted. Limited right knee AP upright: The medial and lateral compartments normal. Arterial calcification noted. XR/XR knee LT 3V IMPRESSION: LEFT KNEE: 1. Mild osteoarthritis. 2. Prominent calcification/ossification in the extensor tendon region as seen on recent MRI. This could reflect calcific tendinosis or reactive change related to old partial tear versus a prominent patellar spur. RIGHT KNEE: Limited right knee AP upright. No acute abnormality.
== END 2023-10-20 08:42 | disposition home or self-care (01) ==
LOC: HO.HOSX 08:41
PROVIDERS: Visit Provider Physician Assistant
DX: M17.12 Unilateral primary osteoarthritis, left knee (principal); M70.21 Olecranon bursitis, right elbow; E11.9 Type 2 diabetes mellitus without complications
CPT/HCPCS: 20610; 73562; 99212; J1010

== ENCOUNTER 2023-10-20 12:27 | Outpatient (AMB) | payer MEDICARE, SELFPAY ==
[2023-10-20 12:51] VITALS: BMI 28.0
--- NOTE | 2023-10-20 12:51 | A.OFFVIS_ITS ---
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 No hx of injury. Having most of his pain on both sides of the left knee. Hx of injection in his left knee which gave him 6 months of relief. Pain is worse when getting up from the sitting position. 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 Patient denies any known injury. Reports most of his pain is on the medial and lateral aspect of the left knee. Claims to having increased pain with getting up from a seated position. Patient has a history of cortisone injections, which gave him about 6 months of relief. Patient reports edema in the right elbow, which has been ongoing for the past few months and gradually increasing in size. He denies pain or active drainage. [facility] Medical History Symptomatic stenosis of left carotid artery Aortic stenosis Rheumatoid arthritis Carpal tunnel syndrome Former smoker Insulin pump in place Diabetes Elevated cholesterol CAD (coronary artery disease) HTN (hypertension) Surgical History History of left-sided carotid endarterectomy (02/15/23) Hx of carpal tunnel repair Hx of cardiac catheterization History of shoulder surgery History of cholecystectomy History of hand surgery Hx of hemorrhoidectomy Hx of lumbar discectomy H/O colonoscopy Family History Father Heart attack Heart disease Mother Pacemaker Cataracts, bilateral Sister Heart problem Heart valve replaced Arthritis Brother Heart attack Brother Rectal cancer Sister History of modified radical mastectomy of right breast Social History Household Members: None Housing: House Are you a primary laboratory animal caretaker to a significant other at home: No Do you presently have visiting nurse or other home services: No Alcohol intake: former Patient Tobacco Use Status: Former Tobacco user Quit Date: 1964 Tobacco use type: Cigarette Years Smoked: 5 YEARS Advance Directives Date on File: 02/07/23 service: No Current occupational status: employed Current occupation: [employer] Review of Systems Const All systems reviewed & are unremarkable except as noted in HPI and below Physical Exam Vital Signs: BMI result Body Mass Index 28.0 Const General: cooperative, healthy appearing and no acute distress Resp Effort & Inspection: normal respiratory effort and able to speak in complete sentences Cardio Rate: regular rate Peripheral pulses: Peripheral pulses 2+ throughout GI Palpation (GI): Soft to palpation Skin Lesions: no lesions Rashes: no rashes Extrem Other: Left knee: Normal to inspection. No ecchymosis, erythema, or joint effusion. Full ROM with crepitus. NVI. Right elbow: Normal to inspection. No ecchymosis, erythema, or edema. No tenderness to palpation over the olecranon. Positive for olecranon bursitis. No tenderness to the medial or lateral epicondyle. NVI. Office Procedures Joint Injection/Drain Joint Injection/Drain Primary Site: right knee Prep: site was prepped using aseptic technique, ethochloride spray was applied and injection warnings given Injected: 40 mg of, DepoMedrol, with 8 mL of (2% plain lido) and in the joint Approach Used: anterolateral Procedure: The patient tolerated the procedure well, but had some pain with the injection and there was some relief with the local anesthesia Coding 41613 - Large joint Procedure code (CPT) selection complete Assessment & Plan Assessment & Plan (1) Osteoarthritis of left knee: Code(s): M17.12 - Unilateral primary osteoarthritis, left knee Category: Medical Qualifiers: Osteoarthritis type: primary Qualified Code(s): M17.12 - Unilateral primary osteoarthritis, left knee (2) Olecranon bursitis, right elbow: Code(s): M70.21 - Olecranon bursitis, right elbow Category: Medical (3) Diabetes: Code(s): E11.9 - Type 2 diabetes mellitus without complications Category: Medical Plan Mr. Brock is an 83-year-old male who presents in the office today for an evaluation of left knee pain. Patient denies any known injury. Reports most of his pain is on the medial and lateral aspect of the left knee. Claims to having increased pain with getting up from a seated position. Patient has a history of cortisone injections, which gave him about 6 months of relief. Left knee: The patient was offered a cortisone injection in the left knee with 40 mg of DepoMedrol. The patient was explained the risk, benefits, and alternatives to receiving this injection. After receiving consent for the injection, the patient had the procedure done while in the office today. The patient tolerated the procedure well with no complications. Due to the patient?s history of diabetes, they were instructed to monitor his blood glucose level. The patient was informed that they could see a rise in their numbers and if the numbers became too high, they were instructed to call their PCP. The patient was also informed that they could have facial flushing as a side effect of the injection, but this will pass. Follow up will be PRN, or sooner if needed. Right elbow: I advised the patient that compression therapy with an ALBER wrap, which was provided off the shelf, would be his course of treatment. Follow up for this will be PRN, or sooner if needed. X-rays of the left knee which were obtained while in the office today and were reviewed by me, Justina Dumont PA-C, revealed osteoarthritis. MRI of left knee, obtained on 09/25/2023, revealed: 1. Complex tear of the posterior horn and body of the medial meniscus with a displaced undersurface flap fragment at the meniscal body. 2. Complex tear of the posterior root of the lateral meniscus with partial extrusion of the meniscal body. 3. Ill-defined partial tear of the ACL origin, likely subacute to chronic. Abnormal signal intensity within the PCL is also likely due to a partial tear or mucoid degeneration. 4. Partial tear of the MCL origin, likely subacute to chronic. 5. Partial tear of the lateral head of the gastrocnemius muscle and posterior joint capsule. 6. Razh-hh-uugqulzw tricompartmental osteoarthritis, most pronounced in the patellofemoral compartment. 7. Moderate-sized joint effusion. Orders: Orders XR knee LT 3V Today M25.569 - Pain in unspecified knee Patient Instructions: Scribed by Yael Ibrahim medical office clerk, for Justina Dumont PA-C on 10/20/2023 at 12:34 pm, EST. Coding Level of Care Code Est Pt Level 4 (62218) Diagnoses Primary osteoarthritis of left knee M17.12 Osteoarthritis type: primary Olecranon bursitis, right elbow M70.21 Diabetes E11.9 CPT Codes Coding - 50436 Large joint: 25799 - Large joint ([id number])
== END 2023-10-20 13:29 | disposition home or self-care (01) ==
PROVIDERS: PCP Internal Medicine; Visit Provider Physician Assistant
DX: M17.12 Unilateral primary osteoarthritis, left knee (principal); M70.21 Olecranon bursitis, right elbow; E11.9 Type 2 diabetes mellitus without complications
CPT/HCPCS: 20610; 99214

== ENCOUNTER 2023-11-07 10:56 | Outpatient (AMB) | payer MEDICARE, SELFPAY ==
--- NOTE | 2023-11-07 11:20 | MHC.OFFVIS ---
Vital Signs 11/07/23 11:22 Height 5 ft 7 in Weight 179 lb BMI 28.0 Intake Visit Reasons: OV - b/l hand EMG review Intake Note: Jose M 83 yr old male presents today for his EMG review. States he would like to discuss right hand CTR. States his right hand is worse. Has constant numbness in his thumb. He has had bilateral CTR in the past . As per Kailyn last note patient is pending aortic valve procedure and must avoid any procedures under general. Allergies Penicillins Allergy (Severe, Verified 11/07/23 11:29) ITCHING-SEVERE piperacillin [From Zosyn] Allergy (Mild, Verified 11/07/23 11:29) JAUNDICE tazobactam [From Zosyn] Allergy (Mild, Verified 11/07/23 11:29) JAUNDICE HPI HPI OV - b/l hand EMG review: Details: Jose M is an 83 year old right hand dominant Diabetic man who presents for a NCS review of his bilateral hand numbness. He complains of numbness in the right thumb, index, and middle fingers. He says he has intermittent but daily numbness in the thumb, index, & middle fingers. According to the intake for today's appointment, he said he had dense numbness in the thumb. He mentions numbness in his left hand, but this is not as bothersome compared to his right at this time. He reports having a Hx of bilateral carpal tunnel releases in ~1966. His symptoms improved following his procedure, and began to worsen in the last few months. He denies any right wrist pain, he has a Hx of a right carpal fusion done in ~1993. He is a Diabetic, with an insulin pump, there is no HgA1c on file but he says his most recent HgA1c was 5.9%. He has RA and is on Actemra & Prednisone. He has CAD & bilateral aortic stenosis, and had a valve placement done on ~10/07/23. He denies any blood thinners [facility] Medical History Symptomatic stenosis of left carotid artery Aortic stenosis Rheumatoid arthritis Carpal tunnel syndrome Former smoker Insulin pump in place Diabetes Elevated cholesterol CAD (coronary artery disease) HTN (hypertension) Surgical History History of left-sided carotid endarterectomy (02/15/23) Hx of carpal tunnel repair Hx of cardiac catheterization History of shoulder surgery History of cholecystectomy History of hand surgery Hx of hemorrhoidectomy Hx of lumbar discectomy H/O colonoscopy Family History Father Heart attack Heart disease Mother Pacemaker Cataracts, bilateral Sister Heart problem Heart valve replaced Arthritis Brother Heart attack Brother Rectal cancer Sister History of modified radical mastectomy of right breast Social History Household Members: None Housing: House Are you a primary respite care provider to a significant other at home: No Do you presently have visiting nurse or other home services: No Alcohol intake: former Patient Tobacco Use Status: Former Tobacco user Quit Date: 1962 Tobacco use type: Cigarette Years Smoked: 5 YEARS Advance Directives Date on File: 02/07/23 service: No Current occupational status: employed Current occupation: [employer] Review of Systems Const All systems reviewed & are unremarkable except as noted in HPI and below Physical Exam Vital Signs: BMI result Body Mass Index 28.0 Const General: cooperative, healthy appearing and no acute distress Orientation/consciousness: patient oriented x3 HEENT Head: Yes normocephalic and Yes atraumatic Eyes EOM: EOMs intact bilaterally Resp Effort & Inspection: normal respiratory effort and able to speak in complete sentences Cardio Jugular venous distension: no JVD Skin General skin exam: turgor normal Rashes: no rashes Neuro General: patient oriented x3 Extrem Other: Evaluation of Right Upper Extremity: The patient is alert, oriented, and in no acute distress Neuro: Median, Ulnar, Radial nerves motor and sensory intact and sensation is normal to the tips of all digits No thenar or intrinsic wasting Good APB muscle belly firing and good finger cross Vascular: Cap refill brisk ROM: He can make a fist and extend all his digits No locking or catching Skin: No lacerations or abrasions. General: No Ecchymosis. No Erythema or evidence of infection. Nerve Conduction study: Right side only IMPRESSION: 1. This is an abnormal study. 2. There is electrodiagnostic evidence for right moderate-severe median neuropathy at the wrist, consistent with carpal tunnel syndrome. 3. There is no electrodiagnostic evidence for ulnar neuropathy, brachial plexopathy, or cervical radiculopathy. Lexie Mcghee MD, ROMEL 09/15/23 Left-side only IMPRESSION: 1. 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 2. 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 Juma Rios MD 05/25/2023 Radiographs: Radiographs three views of the right hand from 08/23/2023 were reviewed by me today in clinic. They show a right wrist arthrodesis with a dorsal locking plate extending from the radius to the 3rd metacarpal. The plate appears to have fractured at the CMC joint with breakage of the 2 most proximal screws in the 3rd metacarpal. I can only see the most distal 3 screws in the radius and they do not appear to be broken in these radiographs. He also appears to have had a Naomi procedure of the distal ulna He does have some basal joint arthritis, and some arthritic changes in the D IP joints. Psych Appearance: grossly normal Affect: normal affect Attitude: cooperative Assessment & Plan Assessment & Plan (1) Carpal tunnel syndrome on right: Code(s): G56.01 - Carpal tunnel syndrome, right upper limb Category: Medical (2) Left carpal tunnel syndrome: Code(s): G56.02 - Carpal tunnel syndrome, left upper limb Category: Medical (3) Cubital tunnel syndrome on left: Code(s): G56.22 - Lesion of ulnar nerve, left upper limb Category: Medical (4) History of bilateral carpal tunnel release: Code(s): Z98.890 - Other specified postprocedural states Category: Surgical (5) Diabetes: Code(s): E11.9 - Type 2 diabetes mellitus without complications Category: Medical (6) Bilateral carotid artery stenosis: Comment: 02/15/2023 - left carotid endarterectomy Code(s): I65.23 - Occlusion and stenosis of bilateral carotid arteries Category: Medical (7) CAD (coronary artery disease): Comment: follows w/Dr. Grider @ Cardiology Code(s): I25.10 - Atherosclerotic heart disease of [place] coronary artery without angina pectoris Category: Medical (8) Rheumatoid arthritis: Comment: Seronegative initially diagnosed has PMR around 2004 Was only on prednisone until 2021 when HCQ was added with little benefit MTX added 08/2022- -11/08 not particularly effective and patient developed tender skin nodule on LT forearm Enbrel 11/08-02/08 ineffective Actemra 03/11 effective Code(s): M06.9 - Rheumatoid arthritis, unspecified Category: Medical Qualifiers: Rheumatoid arthritis location: multiple sites Rheumatoid factor presence: without rheumatoid factor Qualified Code(s): M06.09 - Rheumatoid arthritis without rheumatoid factor, multiple sites (9) Retained orthopedic hardware: Code(s): Z96.9 - Presence of functional implant, unspecified Category: Medical Plan Assessment & Plan: 1. Right carpal tunnel syndrome, recurrence, moderate-severe Hx of carpal tunnel release in ~1966 Symptoms intermittent, but daily, worse at night According to the intake for today's appointment, he had dense numbness to his thumb I educated him about this condition I discussed operative and non-operative treatment options The patient would like to proceed with surgery The risks and benefits of operative treatment were discussed with the patient and the patient wishes to proceed with surgery. These risks include, but are not limited to risk of damage to blood vessels, nerves, tendons, infection, recurrence, incomplete relief of preoperative symptoms, persistent pain, possible need for further surgery and the risks associated with regional blocks and anesthesia. The plan is to take the patient to the operating room sometime in the next few weeks for the following procedures: 1. Right REPEAT carpal tunnel release, under general All of the preoperative paperwork including the consent was reviewed today. All the patient's questions were answered. The patient understands that they will be contacted by our project controls scheduler soon to schedule this procedure He denies blood thinners, asthma, lung, kidney issues He has Diabetes and says his most recent HgA1c was 5.9% He has CAD and recently had a valve replacement ~10/07/23. He denies any blood thinners He has RA and is on Actemra & Prednisone. He should stop this ~1 week prior to surgery. He will speak with Dr. Neil concerning when to stop and to resume his medication 2. Left carpal tunnel syndrome, recurrence, moderate-severe Hx of carpal tunnel release in ~1966 Symptoms intermittent, but daily, worse at night 3. Left cubital tunnel syndrome, moderate-severe Symptoms intermittent, but daily, worse at night He can follow up to discuss treatment options when his right side has recovered Scribe Plan - Not visible on output: Scribed for Ewa Pack MD by Florian Wolf, clinical specialist medical device, on [ ] at [ ], EST. Coding Level of Care Code Est Pt Level 4 (42463) Diagnoses Carpal tunnel syndrome on right G56.01 Left carpal tunnel syndrome G56.02 Cubital tunnel syndrome on left G56.22 History of bilateral carpal tunnel release Z98.890 Diabetes E11.9 Bilateral carotid artery stenosis I65.23 CAD (coronary artery disease) I25.10 Rheumatoid arthritis of multiple sites with negative rheumatoid factor M06.09 Rheumatoid arthritis location: multiple sites Rheumatoid factor presence: without rheumatoid factor Retained orthopedic hardware Z96.9
[2023-11-07 11:22] VITALS: BMI 28.0
== END 2023-11-07 12:28 | disposition home or self-care (01) ==
PROVIDERS: PCP Internal Medicine; Visit Provider Orthopaedic Surgery
DX: G56.03 Carpal tunnel syndrome, bilateral upper limbs (principal); G56.22 Lesion of ulnar nerve, left upper limb; E11.9 Type 2 diabetes mellitus without complications; I65.23 Occlusion and stenosis of bilateral carotid arteries; I25.10 Atherosclerotic heart disease of native coronary artery without angina pectoris; M06.09 Rheumatoid arthritis without rheumatoid factor, multiple sites; Z96.9 Presence of functional implant, unspecified
CPT/HCPCS: 99214

== ENCOUNTER → 2023-11-07 10:56 | Outpatient (BNVA) | payer MEDICARE, SELFPAY | PROVIDERS: PCP Internal Medicine; Visit Provider Orthopaedic Surgery | DX: G56.03 Carpal tunnel syndrome, bilateral upper limbs (principal); G56.22 Lesion of ulnar nerve, left upper limb; E11.9 Type 2 diabetes mellitus without complications; I65.23 Occlusion and stenosis of bilateral carotid arteries; I25.10 Atherosclerotic heart disease of native coronary artery without angina pectoris; M06.09 Rheumatoid arthritis without rheumatoid factor, multiple sites; Z96.9 Presence of functional implant, unspecified; Z98.890 Other specified postprocedural states | CPT/HCPCS: 99212 ==

== ENCOUNTER 2023-11-22 09:33 | Outpatient (AMB) | payer MEDICARE, SELFPAY ==
--- NOTE | 2023-11-22 09:38 | MHC.OFFVIS ---
Vital Signs 11/22/23 09:44 Height 5 ft 7 in Weight 175 lb 14.862 oz BMI 27.6 BP 134/70 Blood Pressure Location Rt brachial Position Sitting Pulse 81 Pulse Source Pulse Oximeter Pulse Oximetry (%) 94 Oxygen Delivery Method Room Air Intake Visit Reasons: RA Intake Note: Reports dizziness, tired all the time; left knee pain. Upcoming CTS surgery , would like to discuss Actemra. [employer] Required: No Accompanied by: Self / Same As Patient Allergies Penicillins Allergy (Severe, Verified 11/22/23 09:45) ITCHING-SEVERE piperacillin [From Zosyn] Allergy (Mild, Verified 11/22/23 09:45) JAUNDICE tazobactam [From Zosyn] Allergy (Mild, Verified 11/22/23 09:45) JAUNDICE Medication List - Last Reconciled 11/22/23 by Marisela Neil MD acetaminophen ER (Tylenol 8 Hour) 650 mg PO Q8H PRN Actemra ACTPen (tocilizumab) 162 mg (0.9 mL) subcut Q2W NS aspirin 81 mg PO DAILY atorvastatin mg PO calcium citrate 1,600 mg PO BID cholecalciferol (vitamin D3) 50 mcg PO BID citalopram 20 mg PO DAILY cyclobenzaprine 10 mg PO DAILY docusate sodium 100 mg PO BID furosemide mg PO gabapentin 600 mg PO TID [Novolog U-100 Insulin aspart via TANDEM insulin pump] omeprazole 20 mg PO BID pilocarpine HCl 5 mg PO BID polyethylene glycol 3350 (Miralax) 17 grams PO DAILY prednisone 4 mg (4 x 1 mg) PO DAILY tamsulosin 0.4 mg PO BEDTIME testosterone cypionate 60 mg IM TU vitamins A,C,U-zckc-kphhya 4,296 mcg-226 mg-90 mg (PreserVision AREDS) 1 cap PO BID HPI Comments Details: 83-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 On Actemra every other week, prednisone 3 mg daily and hydroxychloroquine 20 mg Twice daily. He was evaluated by Orthopedics for his left knee meniscal tear, he received a steroid injection, it helped him for approximately 2 weeks. He continues to have left knee pain. He has significant dizziness especially when getting up from a seated position or if he has lying on the floor. He is having minimal left wrist pain. He is s/p aortic valve replacement a few weeks ago and procedure was uneventful. He is scheduled for right carpal tunnel release revision on 12/11 Initial history: This is an 82-year-old male referred from the [place] with complex past medical history including diabetes mellitus on insulin pump, dyslipidemia, CAD, PMR, rheumatoid arthritis who presents for evaluation of rheumatoid arthritis. 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 Patient stated he was diagnosed with PMR more than [address] Nichole, he stated that he was started on prednisone 20 mg which would be tapered down to 10 mg and as soon as he is on lower than 10 mg he starts flaring with diffuse joint pain. He then followed with Dr. alfaro and most recently with Gisselle Taylor. Patient has had numerous surgeries due to his rheumatoid arthritis, he states that his carpal bones are fused bilaterally, he also had right wrist surgery, he has SLAP repair surgery for his left shoulder and rotator cuff repair for his right shoulder. He also had a bursectomy for his left elbow. He was started on hydroxychloroquine a few months ago by Gisselle Taylor and he is not sure if it is helping. He also has history of osteoporosis complicated by multiple vertebral fractures in 2021 which were quite painful. He was started on Fosamax once weekly by Gisselle Taylor. About a month ago he had a flare up of diffuse joint pain that was attributed to Fosamax. Since then Fosamax had been stopped. Prednisone was increased back to 15 mg by his PCP. He states that he had a flare-up affecting his wrists, elbows, shoulders and left knee. His pain has improved but he continues to have left knee pain for the last 2-3 weeks. Continues to have chronic low back pain nonradiating. He recently had intermittent chest pain and was evaluated by his geophysical support specialist and referred for a stress test. [facility] Medical History (Updated 11/22/23 @ 10:17 by Marisela Neil MD) Symptomatic stenosis of left carotid artery Aortic stenosis Rheumatoid arthritis Carpal tunnel syndrome Former smoker Insulin pump in place Diabetes Elevated cholesterol CAD (coronary artery disease) HTN (hypertension) Surgical History History of left-sided carotid endarterectomy (02/15/23) Hx of carpal tunnel repair Hx of cardiac catheterization History of shoulder surgery History of cholecystectomy History of hand surgery Hx of hemorrhoidectomy Hx of lumbar discectomy H/O colonoscopy Family History Father Heart attack Heart disease Mother Pacemaker Cataracts, bilateral Sister Heart problem Heart valve replaced Arthritis Brother Heart attack Brother Rectal cancer Sister History of modified radical mastectomy of right breast Social History Household Members: None Housing: House Are you a primary primary care coordinator to a significant other at home: No Do you presently have visiting nurse or other home services: No Alcohol intake: former Patient Tobacco Use Status: Former Tobacco user Tobacco use type: Cigarette Years Smoked: 5 YEARS Advance Directives Date on File: 02/07/23 service: No Current occupational status: employed Current occupation: [employer] Const Reports fatigue Card Details: Lightheadedness Musc Reports arthralgias, Reports numbness and Reports tingling Neuro Reports numbness and Reports tingling Endo Reports fatigue Physical Exam Vital Signs: Last Vital Signs Pulse 81 11/22/23 09:44 BP 134/70 11/22/23 09:44 Pulse Ox 94 11/22/23 09:44 Oxygen Delivery Method Room Air 11/22/23 09:44 BMI result Body Mass Index 27.6 Const General: cooperative, healthy appearing, comfortable and no acute distress Nutritional Appearance: overweight Orientation/consciousness: patient oriented x3 Limitations: no limitations HEENT Head: Yes normocephalic and Yes atraumatic Resp Effort & Inspection: normal respiratory effort and able to speak in complete sentences Auscultation: crackles bilateral at the base Skin Other: Multiple bruises with fragile skin on arms, forearms, hands and legs (chronic) Neuro General: patient oriented x3 Extrem Other: Mild left wrist swelling at the ulnar aspect and some tenderness Normal range of motion of both shoulders Mild swelling at the right olecranon Mild left knee warmth and pain with range of motion No ankle or feet swelling or tenderness Negative Tinel sign on the right Assessment & Plan Assessment & Plan (1) Rheumatoid arthritis: Comment: Seronegative initially diagnosed has PMR around 2004 Was only on prednisone until 2021 when HCQ was added with little benefit MTX added 08/2022- -11/08 not particularly effective and patient developed tender skin nodule on LT forearm Enbrel 11/08-02/08 ineffective Actemra 03/11 effective HCQ DC 11/2023 Code(s): M06.9 - Rheumatoid arthritis, unspecified Category: Medical Qualifiers: Rheumatoid arthritis location: multiple sites Rheumatoid factor presence: without rheumatoid factor Qualified Code(s): M06.09 - Rheumatoid arthritis without rheumatoid factor, multiple sites Plan: This is an 83-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 On Actemra 162 mg every other week, prednisone 3 mg daily, hydroxychloroquine 200 mg daily. Doing very well overall. Continue current meds but DC hydroxychloroquine, I do not believe it was helpful Labs before next visit in 3 months (2) Olecranon bursitis, right elbow: Code(s): M70.21 - Olecranon bursitis, right elbow Category: Medical Plan: Per patient fluctuating right elbow swelling over the last 2-3 years. Patient has pain with right elbow pressure. Otherwise denies any elbow pain. In 2018 patient had recurrent left olecranon bursitis. Eventually he had a bursectomy. 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 03/2023, right olecranon bursitis was aspirated and injected with Kenalog. It showed 2600 WBCs with 100% lymphocytes. Bacterial cultures are negative, with no crystals. 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 Has always been on at least 10 mg of prednisone for more than 15 years. Per patient recent multiple vertebral fractures in 2021. He follows up with endocrinology and is on testosterone and Prolia (4) Numbness of finger: Code(s): R20.0 - Anesthesia of skin Category: Medical Plan: Bilateral hands,, right hand is more symptomatic recently. Was evaluated by hand surgeon and planned for right hand carpal tunnel release revision 12/12/2023 Patient to do the Actemra injection today, hold the 12/05 dose and resume on 12/19 Continue prednisone 3 mg daily (5) Aortic stenosis: Code(s): I35.0 - Nonrheumatic aortic (valve) stenosis Category: Medical Qualifiers: Cardiac valve disease etiology: nonrheumatic Qualified Code(s): I35.0 - Nonrheumatic aortic (valve) stenosis Plan: He is s/p TAVR. Continues to have dizzy spells. Symptoms consistent with postural hypertension. Follow-up with geophysical support specialist (6) Thrombocytopenia: Code(s): D69.6 - Thrombocytopenia, unspecified Category: Medical Plan: Fluctuating Will monitor periodically (7) Tear of meniscus of left knee: Code(s): S83.207A - Unspecified tear of unspecified meniscus, current injury, left knee, initial encounter Category: Medical Qualifiers: Tear current or old: current Encounter type: subsequent encounter Meniscus of knee: unspecified Meniscus tear of knee type: unspecified type Qualified Code(s): S83.207D - Unspecified tear of unspecified meniscus, current injury, left knee, subsequent encounter Plan: Was evaluated by Orthopedics and received a steroid injection 10/2023 which gave relief for 1-2 weeks. Advised patient to go back to Orthopedics for re-evaluation Plan I spent 45 minutes reviewing patient's chart, evaluating patient, ordering diagnostic workup, counseling patient and documenting in the chart Orders: Orders Complete Blood Count Auto Diff 3 Months M06.09 - Rheumatoid arthritis without rheumatoid factor, multiple sites Comprehensive Met. Panel 3 Months M06.09 - Rheumatoid arthritis without rheumatoid factor, multiple sites Erythrocyte Sedimentation Rate 3 Months M06.09 - Rheumatoid arthritis without rheumatoid factor, multiple sites C Reactive Protein 3 Months M06.09 - Rheumatoid arthritis without rheumatoid factor, multiple sites Coding Level of Care Code Est Pt Level 5 (23517) Complex EM visit Add On G2211 Diagnoses Rheumatoid arthritis of multiple sites with negative rheumatoid factor M06.09 Rheumatoid arthritis location: multiple sites Rheumatoid factor presence: without rheumatoid factor Olecranon bursitis, right elbow M70.21 Osteoporosis with pathological fracture of thoracic vertebra M80.08XA Numbness of finger R20.0 Nonrheumatic aortic valve stenosis I35.0 Cardiac valve disease etiology: nonrheumatic Thrombocytopenia D69.6 Tear of meniscus of left knee as current injury, unspecified meniscus, unspecified tear type, subsequent encounter S83.207D Tear current or old: current Encounter type: subsequent encounter Meniscus of knee: unspecified Meniscus tear of knee type: unspecified type
[2023-11-22 09:44] VITALS: BP 134/70; PULSE 81; O2SAT 94; BMI 27.6
== END 2023-11-22 10:10 | disposition home or self-care (01) ==
PROVIDERS: PCP Internal Medicine; Visit Provider Student in an Organized Health Care Education/Training Program
DX: M06.09 Rheumatoid arthritis without rheumatoid factor, multiple sites (principal); M70.21 Olecranon bursitis, right elbow; M80.08XA Age-related osteoporosis with current pathological fracture, vertebra(e), initial encounter for fracture; R20.0 Anesthesia of skin; I35.0 Nonrheumatic aortic (valve) stenosis; D69.6 Thrombocytopenia, unspecified; S83.207D Unspecified tear of unspecified meniscus, current injury, left knee, subsequent encounter
CPT/HCPCS: 99214; G2211

== ENCOUNTER → 2023-11-22 09:33 | Outpatient (BNVA) | payer MEDICARE, SELFPAY | PROVIDERS: PCP Internal Medicine; Visit Provider Student in an Organized Health Care Education/Training Program | DX: M06.09 Rheumatoid arthritis without rheumatoid factor, multiple sites (principal); M80.08XA Age-related osteoporosis with current pathological fracture, vertebra(e), initial encounter for fracture; M70.21 Olecranon bursitis, right elbow; R20.0 Anesthesia of skin; I35.0 Nonrheumatic aortic (valve) stenosis; D69.6 Thrombocytopenia, unspecified; S83.207D Unspecified tear of unspecified meniscus, current injury, left knee, subsequent encounter | CPT/HCPCS: 99212 ==

== ENCOUNTER 2023-11-27 10:32 | Outpatient (REF) | payer MEDICARE, SELFPAY ==
--- NOTE | ~2023-11-27 | US_ITS ---
EXAMINATION: US EXTRACRANIAL CAROTID DUPLEX, BILATERAL CLINICAL INFORMATION: Carotid artery stenosis, left endarterectomy in 2022 COMPARISON: Carotid duplex on 05/30/2023 TECHNIQUE: Real-time ultrasound and Doppler techniques (integrating B-mode 2-D vascular images, Doppler spectral analysis and color-flow Doppler imaging) were utilized to interrogate the extracranial carotid arteries, the vertebral arteries and proximal subclavian arteries bilaterally. The degree of stenosis is determined by criteria similar to NASCET. FINDINGS: Right Side: 1. There is moderate atherosclerotic plaque seen in the bifurcation/proximal ICA region. 2. The common carotid artery PSV proximally is 123 cm/s and distally 141 cm/s. 3. The proximal internal carotid artery velocities are 167 cm/s systolic and 43 cm/s diastolic. 4. The proximal external carotid artery PSV is 159 cm/s. 5. The vertebral artery shows antegrade flow. 6. The subclavian artery waveforms are normal. Left Side: 1. There is mild atherosclerotic plaque seen in the bifurcation/proximal ICA region. 2. The common carotid artery PSV proximally is 123 cm/s and distally 141 cm/s. 3. The proximal internal carotid artery velocities are 167 cm/s systolic and 43 cm/s diastolic. 4. The proximal external carotid artery PSV is 159 cm/s. 5. The vertebral artery shows antegrade flow. 6. The subclavian artery waveforms are normal. US/US carotid duplex BI IMPRESSION: 1. RIGHT: Moderate, hemodynamically significant stenosis of the proximal right internal carotid artery corresponding to a 50-79% stenosis by velocity criteria. 2. LEFT: Minimal, non-hemodynamically significant stenosis of the proximal left internal carotid artery corresponding to a 0-49% stenosis by velocity criteria.
== END 2023-11-27 10:33 | disposition home or self-care (01) ==
LOC: HO.US 10:32
PROVIDERS: PCP Internal Medicine; Visit Provider Surgery Vascular Surgery
DX: I65.23 Occlusion and stenosis of bilateral carotid arteries (principal)
CPT/HCPCS: 93880

== ENCOUNTER 2024-01-01 06:47 | Day surgery (SDC) | payer MEDICARE, SELFPAY ==
--- OUTSIDE RECORDS SUMMARY | 2024-01-01 06:49 | XMS_ITS | Continuity of Care Document ---
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 Name Role Phone Gisselle Gilman MD Primary Care Physician Encounter [facility] Date(s): 10/03/23 - 10/04/[address] [address]- Discharge Disposition: A-D/C Home Attending Physician: Ahmet aRe MD Admitting Physician: Ahmet Rae MD Referring Physician: Román Mclean MD Allergies, Adverse Reactions, Alerts Substance Reaction Severity Status penicillin Active Zosyn Active Medications (Vitamin D3) Cholecalciferol 400 ASSISTED units/mL oral syringe 1 mL = 10 mcg, By Mouth, Daily, 0 Refills, Maintenance, 11/18/20 9:38:00 EDT, Partial fill upon patient request if the prescription is for a schedule II opioid drug. Start Date: 11/18/20 Status: Ordered Actemra 162 mg/0.9 mL subcutaneous solution = 162 mg, Subcutaneous Injection, Every week, 0 Refills, Maintenance, 09/06/23 9:16:00 EDT, Solution, Partial fill upon patient request if the prescription is for a schedule II opioid drug. Start Date: 09/06/23 Status: Ordered amLODIPine 2.5 mg oral tablet 2.5 mg, 1, tablet, By Mouth, Daily, Refills 0, Maintenance, 04/24/17 14:19:16 Start Date: 04/24/17 Status: Ordered aspirin (OP) 0 Refills, Maintenance, 2 Start Date: 11/18/20 Status: Ordered atorvastatin 10 mg oral tablet = 40 mg, By Mouth, Daily, 0 Refills, Maintenance, 11/18/20 9:38:00 EDT, Partial fill upon patient request if the prescription is for a schedule II opioid drug. Start Date: 11/18/20 Status: Ordered Calcium Citrate = 800 mg, By Mouth, Daily, 0 Refills, Maintenance, 09/08/23 9:43:00 EDT, Partial fill upon patient request if the prescription is for a schedule II opioid drug. Start Date: 09/08/23 Status: Ordered Cyclobenzaprine = 10 mg, By Mouth, Daily at bedtime, 0 Refills, Maintenance, 11/18/20 9:37:00 EDT, Partial fill upon patient request if the prescription is for a schedule II opioid drug. Start Date: 11/18/20 Status: Ordered Furosemide = 20 mg, By Mouth, Daily, 0 Refills, Maintenance, 07/14/18 12:06:53 EST Start Date: 07/14/18 Status: Ordered gabapentin 300 mg oral capsule 300 mg, 1, capsule, By Mouth, 3 times a day, # 90 capsule, Refills 5, Maintenance, 10/03/23 17:36:00 EDT, Partial fill upon patient request if the prescription is for a schedule II opioid drug. Start Date: 10/03/23 Status: Ordered gabapentin 300 mg oral capsule 300 mg, Capsule, By Mouth, 10/04/23 9:00:00 EDT Start Date: 10/04/23 Stop Date: 10/04/23 Status: Completed hydroxychloroquine 200 mg oral tablet 200 mg, 1, tablet, By Mouth, Daily, Refills 0, Maintenance, 10/03/23 8:47:00 EDT, Partial fill uponpatient request if the prescription is for a schedule II opioid drug. Start Date: 10/03/23 Status: Ordered losartan 50 mg oral tablet 100 mg, 2, tablet, By Mouth, Daily, # 30 tablet, Soft Stop Start Date: 09/22/08 Stop Date: 10/21/08 Status: Ordered losartan 50 mg oral tablet 100 mg, Tablet, By Mouth, 10/04/23 9:00:00 EDT Start Date: 10/04/23 Stop Date: 10/04/23 Status: Completed NovoLog Inj as directed, Subcutaneous Infusion, 3 times a day, 09/22/08 6:20:37 Start Date: 09/22/08 Status: Ordered omeprazole 20 mg oral delayed release tablet = 20 mg, By Mouth, 2 times a day, # 180 capsule, 0 Refills, Maintenance, 08/06/18 15:35:00 EST, EC Tablet Start Date: 08/06/18 Stop Date: 11/04/18 Status: Ordered pilocarpine 5 mg oral tablet 1 tablet = 5 mg, By Mouth, 2 times a day, 0 Refills, Maintenance, 11/18/20 9:39:00 EDT, Partial fill upon patient request if the prescription is for a schedule II opioid drug. Start Date: 11/18/20 Status: Ordered predniSONE 2 mg oral delayed release tablet 2 tablet = 4 mg, By Mouth, Daily, # 60 tablet, 0 Refills, Maintenance, 09/06/23 8:59:00 EDT, CR Tablet, Partial fill upon patient request if the prescription is for a schedule II opioid drug. Start Date: 09/06/23 Status: Ordered PreserVision By Mouth, Daily, 0 Refills, Maintenance, 11/18/20 9:39:00 EDT, Partial fill upon patient request ifthe prescription is for a schedule II opioid drug. Start Date: 11/18/20 Status: Ordered Probiotic Formula By Mouth, Daily, 0 Refills, Maintenance, 11/18/20 9:38:00 EDT, Partial fill upon patient request ifthe prescription is for a schedule II opioid drug. Start Date: 11/18/20 Status: Ordered tamsulosin 0.4 mg oral capsule 0.4 mg, 1, capsule, By Mouth, Daily, # 30 capsule, Refills 0, Maintenance, 09/06/23 9:19:00 EDT, Partial fill upon patient request if the prescription is for a schedule II opioid drug. Start Date: 09/06/23 Status: Ordered testosterone (OP) = 60.75 mg, Every Monday, 0 Refills, Maintenance, 2 Start Date: 09/06/23 Status: Ordered Tylenol 8 Hour 650 mg oral tablet, extended release 2 tablet = 1,300 mg, By Mouth, Every 8 hours, PRN as needed for pain, # 50 tablet, 0 Refills, Maintenance, 09/06/23 8:57:00 EDT, ER Tablet, Partial fill upon patient request if the prescription is for a schedule II opioid drug. Start Date: 09/06/23 Status: Ordered Results Radiology Reports * Exam Date Time Procedure Performing Provider Status 10/04/23 7:19 AM Chest Portable Kacie Isabel; Inna (Verified) Notes: (Chest Portable) Reason For Exam: S/P TAVR;Postop RESULT: Chest Portable Chest Portable Reason: Postop; S P TAVR; Clinical Question(s): Other:; Cardiac Tamponade COMPARISON: 10/03/2023. FINDINGS: LINES AND TUBES: None. LUNGS AND PLEURA: Low lung volumes with mild basilar atelectasis. Probable small left pleural effusion. No pneumothorax. HEART, MEDIASTINUM AND HANNA: Heart is normal in size. Uncoiled and calcified aorta. Post TAVR. BONES AND SOFT TISSUES: No acute abnormality. IMPRESSION: No significant change since one day prior. WSN: [id number] Ordering Physician: Gary Martínez Dictated By: Jenise Junior MD Dictated Date/Time: 10/04/23 10:06 a Reviewed By: Jenise Junior MD Signed By: Jenise Junior MD Signed Date/Time: 10/04/23 10:06 am Transcribed By: EMA Transcribed Date/Time: 10/04/23 10:00 am * Exam Date Time Procedure Performing Provider Status 10/03/23 12:35 PM Chest Portable Janene Haskins (Verified) Notes: (Chest Portable) Reason For Exam: S/P TAVR;Postop RESULT: Chest Portable Chest Portable Reason: Postop; S P TAVR; Clinical Question(s): Cardiac Tamponade COMPARISON: CT TAVR 08/29/2023 FINDINGS: LINES AND TUBES: Inferior approach temporary pacer lead in place appearing. LUNGS AND PLEURA: Clear lungs. Normal pulmonary vascularity. Mild elevation right hemidiaphragm. Small left pleural effusion. No pneumothorax. HEART, MEDIASTINUM AND HANNA: Heart is normal in size. Status post TAVR Aorta is mildly calcified. BONES AND SOFT TISSUES: No acute abnormality. Moderate degenerative change both shoulders. Probable prior cholecystectomy. IMPRESSION: Small left pleural effusion. No pneumothorax. Status post TAVR. . I have personally reviewed the images and I agree with this report. WSN: [id number] Ordering Physician: Gary Martínez Dictated By: Félix Perry MD Dictated Date/Time: 10/03/23 1:58 pm Reviewed By: Deon Strauss MD, V Signed By: Deon Strauss MD, V Signed Date/Time: 10/03/23 2:03 pm Transcribed By: EMA Transcribed Date/Time: 10/03/23 1:46 pm Vital Signs Most recent to oldest [Reference Range]: 1 2 3 Height 170 cm (10/04/23 11:54 AM) 170 cm (10/04/23 8:35 AM) 170 cm (10/04/23 5:04 AM) Weight 85.3 kg (10/04/23 5:46 AM) 83.8 kg (10/03/23 5:04 PM) 84.7 kg (10/03/23 7:30 AM) Oxygen Saturation [94-100 %] 97 % (10/04/23 11:54 AM) 96 % (10/04/23 8:35 AM) 95 % (10/04/23 5:04 AM) Pulse Rate [55-90 bpm] 79 bpm (10/04/23 11:54 AM) 80 bpm (10/04/23 8:35 AM) 79 bpm (10/04/23 5:04 AM) Body Mass Index [18.5-24.99 kg/m2] 29 kg/m2 *H* (10/03/23 5:04 PM) 29.31 kg/m2 *H* (10/03/23 7:30 AM) Blood Pressure [90-138/55-84 mm Hg] 132/59mm Hg (10/04/23 11:54 AM) 110/74mm Hg (10/04/23 9:41 AM) 118/66mm Hg (10/04/23 8:35 AM) Respiratory Rate [16-30 br/min] 18 br/min (10/04/23 11:54 AM) 18 br/min (10/04/23 8:35 AM) 20 br/min (10/04/23 7:35 AM) Temperature [96.8-100.4 DegF] 97.9 DegF (10/04/23 11:54 AM) 98.0 DegF (10/04/23 8:35 AM) 97.6 DegF (10/04/23 5:04 AM) Liters per Minute 2 L/min (10/03/23 12:30 PM) 2 L/min (10/03/23 12:15 PM) 2 L/min (10/03/23 12:00 PM) Mode of Delivery (Oxygen) Room air (10/04/23 11:54 AM) Room air (10/04/23 8:35 AM) Room air (10/04/23 5:04 AM) Blood pressure sites Arm, left (10/04/23 11:54 AM) Arm, left (10/04/23 8:35 AM) Arm, left (10/04/23 5:04 AM) Temperature Route Oral (10/04/23 11:54 AM) Oral (10/04/23 8:35 AM) Oral (10/04/23 5:04 AM) Dry Weight 84.7 kg (10/03/23 7:30 AM) Weight Obtained Via Bed scale (10/04/23 5:46 AM) Bed scale (10/03/23 5:04 PM) Standing scale (10/03/23 7:30 AM) Dry Weight Obtained Via Standing scale (10/03/23 7:30 AM) Social History Social History Type Response Smoking Status Former smoker; Tobac co user in household: No entered on: 09/12/17 Sex Note * Blu Neville RN: SIGN, VERIFY, PERFORM Event Display: Cardiac Rehab Note Authored Date: Patient: BEBO SHEPHERD Age: 83 years Sex: Male : 1940 Associated Diagnoses: None Author: Blu Neville RN Attended Cardiac Surgery rounds. See CV surgery note for plan of care. * Adrian Crain: PERFORM, SIGN, VERIFY Event Display: Cardiac Rehab Note Authored Date: Patient: BEBO SHEPHERD Age: 83 years Sex: Male : 1940 Associated Diagnoses: None Author: Adrian Crain Diagnosis Cardiac Rehab Diagnosis: S/P TAVR, groin brandee earlier . Pre-exercise Vitals Vital Signs: 80 HR, 120/70 BP Sitting, 97% RA SaO2. Vital Signs Comment: Reviewed in CIS, RN informed of Vital Sign changes. Pre-exercise Physical Examination Neurologic: alert & oriented. Cardiovascular: heart rate regular. Lungs: Normal I:E, Cough no. Activity Symptoms with Cardiac Rehab Symptoms: No exertional symptoms. Activity Transfers: with assist, assist x 1 . Ambulate: assist x 1 , distance ambulated 60 feet. Patient Education Education: Patient alone, Post procedure guidelines. Education topic Teachback comprehension 50% Topic: Role of exercise, Home activity guidelines/limits. Reinforcement needed: Role of exercise, Home activity guidelines/limits. Recommendation and Plan Outpatient follow up recommended: in 3 weeks. Cardiac Rehab: Will sign off at this time. Recommendation comment: RN notified of plan. * Chandrakant Cruz RN: PERFORM Event Display: Discharge/Transfer Note Hospital Authored Date: [id number] Nursing Discharge Note Entered On: 10/04/2023 15:18 EDT Performed On: 10/04/2023 15:15 EDT by Chandrakant Cruz RN Nursing Discharge Note 2 Discharge Time : 10/04/2023 15:15 EDT Discharge Level of Care at Discharge : Home/Detention/Foster Care Patient Left Unit Via : Wheelchair Patient Accompanied Off Unit with : Responsible adult DC Instructions Provided & Signed by Pt : Yes Patient Understands D/C Instructions : Yes Patient Instructions Discharge Signed : Yes Did Pt have Specialty Bed or Wound Vac : No Chandrakant Cruz RN - 10/04/2023 15:18 EDT * Dhaval ARMSTRONG, More Gómez: PERFORM Event Display: Discharge/Transfer Note Hospital Authored Date: [id number] Patient: ??BEBO SHEPHERD ? Age:??83 Years?Sex:??Male?:??1940?? Patient Information Discharge Location: Primary Care Physician: Gisselle Gilman MD Admit Date/Time: 10/03/23 06:15 Discharge Disposition Discharge Disposition: Home: No Services Discharge Diagnosis Aortic stenosis (I35.0) S/P TAVR _ Discharge Medications Acetaminophen (Tylenol 8 Hour 650 mg oral tablet, extended release)?2?tab(s)?1,300?Milligram?By Mouth?Every 8 hours?as needed?as needed for pain Amlodipine (amLODIPine 2.5 mg oral tablet)?2.5?Milligram?1?tablet?By Mouth?Daily Atorvastatin (atorvastatin 10 mg oral tablet)?40?Milligram?By Mouth?Daily bifidobacterium-lactobacillus (Probiotic Formula)?By Mouth?Daily Calcium Citrate?800?Milligram?By Mouth?Daily Cholecalciferol ((Vitamin D3) ??Cholecalciferol 400 ASSISTED units/mL oral syringe 1 mL)?10?Microgram?By Mouth?Daily Cyclobenzaprine?10?Milligram?By Mouth?Daily at bedtime Furosemide?20?Milligram?By Mouth?Daily Gabapentin (gabapentin 300 mg oral capsule)?300?Milligram?1?capsule?By Mouth?3 times a day Hydroxychloroquine (hydroxychloroquine 200 mg oral tablet)?200?Milligram?1?tablet?ByMouth?Daily Insulin Aspart (NovoLog Inj)?as directed?Subcutaneous Infusion?3 times a day Losartan (losartan 50 mg oral tablet)?100?Milligram?2?tab(s)?By Mouth?Daily Multivitamin With Minerals (PreserVision)?By Mouth?Daily Omeprazole (omeprazole 20 mg oral delayed release tablet)?20?Milligram?By Mouth?2 timesa day?for 90?Days Pilocarpine (pilocarpine 5 mg oral tablet)?1?tab(s)?5?Milligram?By Mouth?2 times a day PredniSONE (predniSONE 2 mg oral delayed release tablet)?2?tab(s)?4?Milligram?By Mouth?Daily Tamsulosin (tamsulosin 0.4 mg oral capsule)?0.4?Milligram?1?capsule?By Mouth?Daily Testosterone (testosterone (OP))?60.75?Milligram?Every Monday tocilizumab (Actemra 162 mg/0.9 mL subcutaneous solution)?162?Milligram?Subcutaneous Injection?Every week ? Allergies Allergies ?(Active and Proposed Allergies Only) penicillin? (Severity: Unknown severity, Onset: Unknown) Zosyn? (Severity: Unknown severity, Onset: Unknown) ? Hospital Course The patient is an 83-year-old male who presents with exertional dyspnea and was found to have severe aortic stenosis. He underwent TAVR with Dr. Rae and Vinay on 10/03/23. Objective 83 yo M w/ Hx of severe who presents for elective TAVR ?? S/p TF-TAVR - 29 mm S3 Bioprosthetic Valve ?? At this time, patient denies any significant complaints. No significant chest pain or shortness of breath.? S/P TAVR,?? - Rhythm: NSR rates in the 70s - Right groin site with oozing post procedure, now stable, patient has ambulated unit with no bleeding. Ecchymosis present, no hematoma formation. - ASA monotherapy - Daily EKG - Resume home medications - EKG, Echocardiogram and CXR have been reviewed.? -??Will follow up for echocardiogram as scheduled,??have CBC and BMP in??1 week (order provided) and follow up with interventionalist as scheduled.? Vital Signs?? Temperature: 97.9 DegF (04/17/24 11:54:00) Temperature Route: Oral (10/04/23 11:54:00) Pulse Rate: 79 bpm (10/04/23 11:54:00) Heart Rate Monitored: 87 bpm (10/03/23 16:15:00) Respiratory Rate: 18 br/min (10/04/23 11:54:00) Systolic Blood Pressure: 132 mm Hg (10/04/23 11:54:00) Diastolic Blood Pressure: 59 mm Hg (10/04/23 11:54:00) Blood pressure sites: Arm, left (10/04/23 11:54:00) Mean Arterial Pressure: 83 mm Hg (10/04/23 11:54:00) Pulse Pressure: 73 mm Hg (10/04/23 11:54:00) Oxygen Saturation: 97 % (10/04/23 11:54:00) Liters per Minute: 2 L/min (10/03/23 12:30:00) Mode of Delivery (Oxygen): Room air (10/04/23 11:54:00) Early Warning Score: 5 (10/04/23 11:54:53) ? . Physical Exam ?? General Appearance: Alert, no acute distress Neurologic: CN 2-12 grossly intact HEENT: PERRLA Cardiac: Rate and rhythm regular. ??S1, S2 heard.?? Extremities: Trace edema bilaterally?? Vascular: Palpable radial, pedal pulses bilaterally. ?? Respiratory: Lung sounds clear with diminished bases bilaterally. No crackles, wheezing. Respiratory effort is unlabored.?? Gastrointestinal: Abdomen is soft, nontender, nondistended. ??+Bowel sounds in all 4 quadrants. Integumentary: Bilateral groin sites soft, left groin with significant ecchymosis, no hematoma formation Musculoskeletal: ??LI independently. Pending Results BUN ordered on 10/04/2023 CBC w/ Differential ordered on 10/04/2023 Creatinine ordered on 10/04/2023 Electrolytes ordered on 10/04/2023 Magnesium Level ordered on 10/04/2023 RBCs for Surgery ordered on 10/03/2023 Type and Screen ordered on 10/04/2023 Patient Education Titles WebMD Ignite Patient Education - Understanding Transcatheter Aortic Valve Replacement (TAVR)?? WebMD Ignite Patient Education - TAVR Discharge Instructions?? Follow-Up Appointments Added Follow Up ?Time Frame ?Comments [facility] will call you with an appointement for Cardiac Reha. ECHO?12/07/2023 14:30 Goldy Carrie?12/12/2023 14:40 Román Mclean?10/23/2023 13:00 Gisselle Gilman MD Home Health Face to Face ^HomeHealthFTF Results Discharge Labs BLOOD BANK Blood Type O Positive ()?? 10/03/2023 06:27 Antibody Screen Negative ()?? 10/03/2023 06:27 RBC Unit ID [id number] ()?? 10/03/2023 07:37 RBC Available RE ()?? 10/03/2023 07:37 ?? BLOOD COUNT & DIFF WBC 4.4 k/mm3 ()?? 10/04/2023 01:10 RBC 4.26 m/mm3 (Low)?? 10/04/2023 01:10 Hgb 11.1 Gm/dL (Low)?? 10/04/2023 01:10 Hct 35.0 % (Low)?? 10/04/2023 01:10 MCV 82.2 femtoliters ()?? 10/04/2023 01:10 MCH 26.1 pg (Low)?? 10/04/2023 01:10 MCHC 31.7 g/dL (Low)?? 10/04/2023 01:10 Platelet Count 106 k/mm3 (Low)?? 10/04/2023 01:10 RDW-SD 44.5 femtoliters ()?? 10/04/2023 01:10 MPV 9.3 femtoliters (Low)?? 10/04/2023 01:10 Nucleated RBC (Automated) 0.0 #/100 WBC'S ()?? 10/04/2023 01:10 Abs. NRBC 0.0 k/mm3 ()?? 10/04/2023 01:10 Abs. Neut 2.4 k/mm3 ()?? 10/04/2023 01:10 Abs. Lymph 1.0 k/mm3 ()?? 10/04/2023 01:10 Abs. [place] 0.8 k/mm3 ()?? 10/04/2023 01:10 Abs. Eo 0.1 k/mm3 ()?? 10/04/2023 01:10 Abs. Baso 0.0 k/mm3 ()?? 10/04/2023 01:10 Neut % 55.5 % ()?? 10/04/2023 01:10 Lymph % 23.2 % ()?? 10/04/2023 01:10 [place] % 18.6 % (High)?? 10/04/2023 01:10 Eos % 2.0 % ()?? 10/04/2023 01:10 Baso % 0.5 % ()?? 10/04/2023 01:10 Imm Gran 0.2 % ()?? 10/04/2023 01:10 Abs. Imm Gran 0.0 k/mm3 ()?? 10/04/2023 01:10 ?? CHEM GENERAL Sodium 141 mmol/L ()?? 10/04/2023 01:10 Potassium 4.0 mmol/L ()?? 10/04/2023 01:10 Chloride 108 mmol/L (High)?? 10/04/2023 01:10 Bicarbonate Level 26 mmol/L ()?? 10/04/2023 01:10 Anion Gap 7 ()?? 10/04/2023 01:10 Glucose, POC 248 mg/dL (High)?? 10/03/2023 17:07 BUN 17 mg/dL ()?? 10/04/2023 01:10 Creatinine-Blood 1.3 mg/dL (High)?? 10/04/2023 01:10 Estimated GFR Creatinine 56 ML/MIN/1.73 M2 ()?? 10/04/2023 01:10 Magnesium 1.9 mg/dL ()?? 10/04/2023 01:10 ?? URINE OTHER Est Creatinine Clearance 38.75 mL/min ()?? 10/04/2023 03:02 ? 42??minutes spent on discharge * Nancy WU, Chandrakant: PERFORM Event Display: Patient Education/Instruction Authored Date: [id number] Inpatient Adult Discharge Instructions. [address] [address] Name: BEBO SHEPHERD : 1940?? Visit: 10/03/2023 06:15?? Current Date: 10/04/2023 14:26 ?? Account: [id number]?? Inpatient Adult Discharge Instructions We would like to thank you for allowing us to assist you with your healthcare needs. The following includes patient education materials and information regarding your injury/illness. Our entire staffstrives to provide an excellent experience for our patients and their families. PLEASE ENSURE YOU FOLLOW-UP PER THE INSTRUCTIONS BELOW! ?? YOUR OPINION IS IMPORTANT TO US! Please complete the survey you may receive by mail or email. Your feedback will be used to make improvements to the healthcare experiences of our patients and their families. Surveys are administered by [employer] ?? If further treatment with your primary care physician or another doctor is recommended, it is important for you to keep the appointment. Call your primary care physician or return to the Emergency Department immediately if your condition worsens, fails to improve, or new symptoms develop. If you need to find a doctor, you can call [facility] for a referral at [phone] or toll free at [phone] or log in to [email or web address].. ?? [facility], in keeping with [facility] guidance, no longer requires face masks for staff, patientsor visitors in most situations. Similiar to time spent indoors at other locations, there is the chance that you were exposed to repiratory viruses during your time with us (such as flu or COVID-19). If you develop symptoms concerning for a viral respiratory infection, please seek testing (and treatment if indicated) from your medical provider or home test kit. ?? You can view and manage your care through the patient portal or by using a health care ольга of your choosing. [employer] is a website that allows you to securely view your medical information including your hospital discharge summary, office visit summaries, medications and follow-up visits. You can also request appointments, renew medications, and request access to your medical information using a health care ольга of your choosing, or just ask a question. You can enroll at [email or web address] or register during your next office visit. You have been discharged from [facility], Patient Care Unit: M6??. If you have any questions regarding these instructions, including results of studies pending, afteryou leave, please call us and we will be happy to assist you 09/01. [facility] Your Care Team Attending Physician Butch KOHLI, Ahmet Renee?? Consulting Providers Ahmet Rae MD?? Discharging Providers Dhaval ARMSTRONG, More Gómez Your Diagnosis Aortic stenosis Tests Performed Below is a partial list of the tests performed during your hospitalization. You may have had other tests and procedures not included in this list. Please discuss all test results with your provider. BUN CBC w/ Differential Creatinine Electrolytes GLUCOSE POC Hgb + Hct Magnesium Level Potassium Level XR Chest Portable BUN?? CBC w/ Differential?? Creatinine?? Electrolytes?? Magnesium Level?? RBCs for Surgery?? Type and Screen?? Primary Care Provider Kalina KOHLI (OB), Gisselle Pham? Advance Directive Health Care Proxy on File No Discharge Vitals Temperature: 97.9 DegF Height: 170 cm Pulse Rate: 79 bpm Weight: 85.3 kg Respiratory Rate: 18 br/min Body Mass Index:??29 kg/m2??High Systolic Blood Pressure: 132 mm Hg Body surface area: 1.99 Diastolic Blood Pressure: 59 mm Hg ?? Oxygen Saturation: 97 % ?? Studies Pending All studies ordered during this hospital stay have been completed unless listed below. Please discuss all pending results with your provider listed above in these instructions. ?? BUN?? CBC w/ Differential?? Creatinine?? Electrolytes?? Magnesium Level?? RBCs for Surgery?? Type and Screen?? What to do next Instructions From Your Doctor ?? Orders? 10/04/23 12:25:00 EDT?? You Need to Schedule the Following Appointments Follow Up with??Goldy Butler When:??12/12/2023 02:40 PM EDT Where: [address] [facility] [place] [address]- Business (1) Follow Up with??ECHO When:??12/07/2023 02:30 PM EDT Where: [address], [address] [place], [place] Follow Up with??Román Mclean When:??10/23/2023 01:00 PM EDT Where: [address] [facility] [place] [address]- Business (1) Follow Up with??[facility] Why: [facility] will call you with an appointement for Cardiac Reha. Follow Up with??Gisselle Gilman MD When:??In 0 days Where: [address] [place] [phone] Business (1) Discharge Medications BEBO SHEPHERD :1940 Visit Date:10/03/2023 Medications: Please continue your medications until treatment is completed or stopped by your provider. Medications not listed below should be discontinued. Discuss any questions related to medications with your provider. What How Much When Instructions Next Dose Unchanged Acetaminophen (Tylenol 8 Hour 650 mg oral tablet, extended release) 2 tab(s) Oral Every 8 hours as needed for as needed for pain as needed Unchanged Amlodipine (amLODIPine 2.5 mg oral tablet) 1 tab(s) Oral Daily tomorrow in am Unchanged Aspirin (aspirin (OP)) tomorrow in am Unchanged Atorvastatin (atorvastatin 10 mg oral tablet) 40 Milligram Oral Daily tomorrow in am Unchanged bifidobacterium-lactobacillus (Probiotic Formula) Oral Daily resume your home regimen Unchanged Calcium Citrate 800 Milligram Oral Daily resume your home regimen Unchanged Cholecalciferol ((Vitamin D3) Cholecalciferol 400 ASSISTED units/ mL oral syringe 1 mL) 10 Microgram Oral Daily resume your home regimen Unchanged Cyclobenzaprine 10 Milligram Oral Daily at Bedtime tonight at bedtime Unchanged Furosemide 20 Milligram Oral Daily tomorrow in am Unchanged Gabapentin (gabapentin 300 mg oral capsule) 1 capsule Oral 3 times a day today at 3 pm Unchanged Hydroxychloroquine (hydroxychloroquine 200 mg oral tablet) 1 tab(s) Oral Daily tomorrow in am Unchanged Insulin Aspart (NovoLog Inj) as directed Subcutaneous Infusion 3 times a day with your next meal Unchanged Losartan (losartan 50 mg oral tablet) 2 tab(s) Oral Daily tomorrow in am Unchanged Multivitamin With Minerals (PreserVision) Oral Daily resume your home regimen Unchanged Omeprazole (omeprazole 20 mg oral delayed release tablet) 20 Milligram Oral Twice a day Duration: 90 Days resume your home regimen Unchanged Pilocarpine (pilocarpine 5 mg oral tablet) 1 tab(s) Oral Twice a day resume your home regimen Unchanged PredniSONE (predniSONE 2 mg oral delayed release tablet) 2 tab(s) Oral Daily tomorrow in am Unchanged Tamsulosin (tamsulosin 0.4 mg oral capsule) 1 capsule Oral Daily tonight at bedtime Unchanged Testosterone (testosterone (OP)) 60.75 Milligram Every Monday resume your home regimen Unchanged tocilizumab (Actemra 162 mg/ 0.9 mL subcutaneous solution) 162 Milligram Subcutaneous Injection Every week resume your home regimen Prescription Given During Visit No new medications prescribed at time of discharge.?? Laboratory Results Below is a partial list of the most recent Laboratory test results done prior to this discharge. You may have had other tests and procedures not included in this list. Please discuss all test resultswith your provider. Est Creatinine Clearance - 38.75 mL/min (10/04/2023) RBC Available - RE (10/03/2023) RBC Unit ID - [id number] (10/03/2023) BUN (10/04/2023) ???BUN - 17 mg/dL CBC w/ Differential (10/04/2023) ???WBC - 4.4 k/mm3???RBC - 4.26 m/mm3???Hgb - 11.1 Gm/dL???Hct - 35.0 %???MCV - 82.2 femtoliters???MCH - 26.1 pg???MCHC - 31.7 g/dL???Platelet Count - 106 k/mm3???RDW-SD - 44.5 femtoliters???MPV - 9.3 femtoliters???Nucleated RBC (Automated) - 0.0 #/100 WBC'S???Abs. NRBC - 0.0 k/mm3???Abs. Neut - 2.4 k/mm3???Abs. Lymph - 1.0 k/mm3???Abs. [place] - 0.8 k/mm3???Abs. Eo - 0.1 k/mm3???Abs. Baso - 0.0 k/mm3???Neut % - 55.5 %???Lymph % - 23.2 %???[place] % - 18.6 %???Eos % - 2.0 %???Baso % - 0.5 %???Imm Gran - 0.2 %???Abs. Imm Gran - 0.0 k/mm3 Creatinine (10/04/2023) ???Creatinine-Blood - 1.3 mg/dL???Estimated GFR Creatinine - 56 ML/MIN/1.73 M2 Electrolytes (10/04/2023) ???Sodium - 141 mmol/L???Potassium - 4.0 mmol/L???Chloride - 108 mmol/L???Bicarbonate Level - 26 mmol/L???Anion Gap - 7 GLUCOSE POC (10/03/2023) ???Glucose, POC - 248 mg/dL Hgb + Hct (10/03/2023) ???Hgb - 12.0 Gm/dL???Hct - 38.9 % Magnesium Level (10/04/2023) ???Magnesium - 1.9 mg/dL Potassium Level (10/03/2023) ???Potassium - 4.3 mmol/L Allergies (NKA means No Known Allergies) Zosyn penicillin Problems No qualifying data available Education Materials Below is the list of Educational Leaflet Providered with your Discharge Instructions. WebMD Ignite Patient Education - Understanding Transcatheter Aortic Valve Replacement (TAVR)?? WebMD Ignite Patient Education - TAVR Discharge Instructions?? Valuables and Belongings I fully understand and agree that [facility] accepts no responsibility for all my personal property including clothing, toilet articles, radios, jewelry, dentures, hearing aids, rings, money, or any other property that is in my possession or is brought to me after admission. I understand certain valuables may be placed in a hospital safe for a short period of time. I understand that the hospital is not liable for loss or damage due to accident, fire, or other natural occurrence while said property is in the safe. I accept full responsibility for any personal property that I keep with me, and will not hold the hospital responsible in case of loss or disappearance. I acknowledge that i have been encouraged to send valuables and belongings home. ?? Review of Valuable and Belonging List: With patient Date for Pt to Sign Valuables/Belongings: 10/03/23 08:36:00 ?? Other Discharge Information ? Pulmonary Rehab Status?? Pulmonary Rehab Discharge Status?? Respiratory Rate: 18 br/min ? Cardiac Rehab Assessment?? Cardiac Rehab Inpatient Assessment?? Comments-Education: S/P TAVR Comments-Smoking Cessation: NA Comments-Exercise Activity: AMB IVAN Comments-Nutrition: PER RD Comments-Lipids: PROFILE PENDING Comments-Other plan of care: RECOMMEND PHASE 2 CARDIAC REHAB 3 WEEKS AT [facility] Common Emergency Awareness Tips IS IT A STROKE? Act FAST and Check for these signs: FACE Does the face look uneven? ARM Does one arm drift down? SPEECH Does their speech sound strange? TIME Call at any sign of stroke ?? Heart Attack Signs Chest discomfort: Most heart attacks involve discomfort in the center of the chest and lasts more than a few minutes, or goes away and comes back. It can feel like uncomfortable pressure, squeezing, fullness or pain. Discomfort in upper body: Symptoms can include pain or discomfort in one or both arms, back, neck, jaw or stomach. Shortness of breath: With or without discomfort. Other signs: Breaking out in a cold sweat, nausea, or lightheaded. Remember, MINUTES DO MATTER. If you experience any of these heart attack warning signs, call to get immediate medical attention! ?? Smoking can increase your chances of developing chronic health problems and can cause harmful effects to other family members in your house. If you smoke, you are strongly encouraged to quit. Please call [facility] [facility] at [phone] or [phone] ([phone]) or log in to [email or web address] for referrals to smoking cessation programs. ?? 988 Suicide & Crisis Lifeline is available 09/01 if you or someone you know needs to find a reason to keep living. By calling 758 you'll be connected to a skilled, trained counselor at a crisis center in your area. INPATIENT DISCHARGE INSTRUCTIONS SIGNATURE PAGE BEBO SHEPHERD Location:[facility] Registration Date and Time:10/03/2023 06:15 EDT Primary Care Physician: Kalina KOHLI , Gisselle Pham, Attending Physician: Butch KOHLI, Ahmet Renee, I BEBO SHEPHERD, have received the above patient education materials/instructions and have verbalized understanding. If ambulance or transport services are being used I further acknowledge being given a choice of service. ?? If you need to contact me, please call me at this number: . Patient/Patternmaker Hand Name: Patient/Patternmaker Hand Signature: Relationship to Patient: Witness Name/Signature: Date: * Saida Mann: Saida Arrieta: SIGN, SIGN, VERIFY Event Display: Patient Education Handout Authored Date: [id number] * Dhaval ARMSTRONG, More Gómez: PERFORM Event Display: Patient Education Leaflets Authored Date: [id number] Understanding Transcatheter Aortic Valve Replacement (TAVR) ?? 37217 Understanding Transcatheter Aortic Valve Replacement (TAVR) Transcatheter aortic valve replacement (TAVR) is a procedure to replace a diseased aortic valve with a new tissue or biologic valve. The old heart valve is not removed but works like an anchor for the new heart valve. This procedure is done through small incisions using a long thin tube (catheter),X-rays, and ultrasound. Transcatheter aortic valve replacement is also known as transcatheter aortic valve implantation (FAINA). The aortic valve directs blood flow from the heart (left ventricle) into the aorta (large blood vessel) and carries blood to the rest of the body. In some people, the valve becomes scarred and stiff and has trouble opening. This is a condition called aortic stenosis. The heart then has to work harder to push blood through the narrowed heart valve to the rest of the body. Over time, the extra workcan cause the heart muscle to weaken. This may lead to symptoms, such as tiredness, shortness of breath, chest pain, and fainting. It can lead to heart failure. In TAVR, the catheter is usually placed in the femoral artery in your groin. Sometimes, the catheter is placed through the axillary artery near your armpit or the carotid artery in your neck. Occasionally, the catheter is placed through a small incision in your chest underneath the collarbone or anincision between the ribs. The doctor uses the catheter to bring the new valve to your heart. The new valve is made of cow or pig heart tissue and is mounted on a metal frame. The new valve helps improve blood flow from the heart to the rest of the body. Reasons for TAVR TAVR may be a option for some people instead of surgical aortic valve replacement (SAVR). This willbe based on age, surgical risks, how severe your aortic stenosis is, other medical factors, and other cardiac issues. Your healthcare team will determine if TAVR is an option for you. ?? Risks and possible complications TAVR is very effective in most people. However, all medical procedures carry some risks and possible complications. Some common risks of TAVR include: ??? Bleeding or the need for a blood transfusion ??? Anemia (not enough red blood cells in the blood) ??? Blood clots ??? Infection ??? Collection of fluid around your heart (pericardial effusion) ??? Confusion or memory problems ??? Damage to the heart ??? Damage to your blood vessels ??? Failure of the new valve ??? Heart attack ??? Heart rhythm problems that may need a pacemaker ??? Kidney damage or failure ??? Lung puncture ??? Stroke ??? Risks of anesthesia (including ) ??? Rarely, the new heart valve can move out of position after it has been implanted ??? Leaking of blood in or around the new heart valve You may have other risks, depending on your medical condition. Be sure to talk with your healthcareprovider if you have any concerns before the procedure. ?? Life after a heart valve replacement ??? A new heart valve can help ease symptoms you may have had.These include pain or pressure in your chest, shortness of breath, and tiredness. ??? After the surgery, you will need to take aspirin or other blood-thinning medicine every day. You will likely alsoneed to take an antiplatelet medicine for a certain period of time. These medicines help prevent blood clots in your new valve. ??? You will need to take antibiotics before you have dental work and certain other medical procedures, as prescribed by your healthcare provider. This is to help prevent bacteria from harming your new heart valve. ??? Your healthcare provider may tell you to make some li festyle changes to protect your heart and make it stronger. These include exercise, quitting smoking, and keeping a healthy weight. ??? After your recovery from TAVR, you may be able to return to regular activities. You should notice improvement in the symptoms from your heart valve disease. Be sure to talk to your healthcare provider before starting any exercise program. ?? Last Reviewed Date: 2021 ?? [id number] The [employer]. All rights reserved. This information is not intended as a substitute for professional medical care. Always follow your healthcare professional's instructions. ?? * Dhaval ARMSTRONG, More Gómez: PERFORM Event Display: Patient Education Leaflets Authored Date: [id number] TAVR Discharge Instructions ?? 298 TAVR Discharge Instructions Call 911 if: ??? If you develop a new onset of confusion, weakness or tingling on one side, numbness, slurred speech or difficulty speaking, loss of vision ??? If you develop numbness, tingling, loss of sensation, and/or coolness to your arms or legs. ??? If you develop chest pain or discomfort that is not relieved with rest. ??? If uncontrolled bleeding occurs, hold pressure to the site and call 911. ?? Call your temporary office assistant office if you experience any of the following: ??? Temperature of 101 or greater, chills, sweating ??? Any bleeding or swelling at the incision site or if a hard lump forms. ??? Any signs of infection at incision site including drainage, redness or tenderness, odor, or the edges of your procedure site are pulling apart or opening. ??? If you experience any new rash, cough, dizziness, or leg cramps. ??? Changes in breathing, chest pain, abnormal pain, dizziness, change in pulse, pulse rate or palpitations, nausea, vomiting. ??? You gain 2 pounds in one day or 5 pounds in 1 week. ?? Follow up: A follow up appointment should be made with your doctor. Follow up care is important; it is strongly encouraged for you to keep your appointment. You may have more than one appointment including one with the filter changer who performed your procedure and your temporary office assistant. ??? Follow up appointments are generally scheduled at 2 weeks for an incision check, either with your primary temporary office assistant or a member of our heart valve team. ??? Additional follow ups occur with the filter changer who performed your procedure within 4 to 6 weeks and then again at 1 year. ??? o An EKG, echocardiogram, and labs will also be obtained before these two follow up visits If you do not have an appointment scheduled already in your discharge packet, please call and make an appointment when you get home. If you have any questions, please call the office of the filter changer who performed your procedure. ?? Valve identification card: You will receive a permanent card in the mail in 8-10 weeks. This identification card should be carried with you at all times. ?? If you go home with a 28 day monitor after your procedure: ??? The monitor will be applied to you prior to your discharge. ??? Each monitor is good for 14 days, a new monitor will be sent to your home address on file at day 12 ??? If you have any specific questions or concerns in regard to your monitor, please call the company: [employer]: ?? Bathing: ??? You can take a shower using a mild soap after you are discharged from the hospital. ??? Avoid soaking in water such as tub baths, swimming pools or hot tubs until you are cleared by your doctor to do so. ?? Incision Care: ??? Look at your procedure site every day until it is completely healed. o Check your procedure site daily for redness, odor, or drainage/bleeding. o You may have a small bump where the catheter was put in, if the bump gets larger, please notify your temporary office assistant. o You may see bruising at the procedure sites but this is normal. ??? It is important to keep incision sites clean and dry. o Avoid usi ng any perfumed soaps, lotions, creams, oils or ointments as these may irritate the site and could put you at risk for infection. ?? Activity: ??? Review the written materials given to you by the Cardiac Rehabilitation staff for your specificexercise program. ??? No heavy lifting over 10 pounds (gallon of milk) for 1 week. ??? Gradually increase your activity. Remember to alternate periods of activity with periods of rest. ??? It is important to continue to do the coughing and deep breathing exercises to help prevent breathing complications. ??? Take your temperature every day for the next 3-5 days. ??? Weigh yourself at the same time every morning. ?? Cardiac Rehabilitation: Cardiac rehabilitation is an outpatient medically supervised exercise program. Participating in a cardiac rehabilitation program is highly encouraged, as this is essential to your recovery process. ??? Cardiac rehabilitation typically starts 2 to 3 weeks after discharge. ??? If attending [facility]???s program, you should leave the hospital with an orientation appointment already arranged. A cardiac rehab facility other than [facility] may require a referral from your temporary office assistant. ?? Driving: ??? You should not drive for 2-3 days after you are discharged from the hospital. ?? Dental Cleaning/Procedures post TAVR ??? You will need an antibiotic prior to future dental cleanings and procedures to prevent against bacteria from attaching to your new heart valve (This is calledinfective endocarditis). ??? If you have developed any signs and/or symptoms of endocarditis pleasecall your temporary office assistant. ??? Symptoms of endocarditis include : ?? o Flu-like symptoms, such as fever, chills, night sweats tiredness, muscle and joint aches, and headache. o Trouble breathing, cough,nausea and vomiting. o Swelling of the feet, legs, and belly. ?? * Event Display: Hemodynamic Procedure Report Authored Date: EKG study * Event Display: ECG 12-Lead Authored Date: Please click on pdf link to open report * Event Display: ECG 12-Lead Authored Date: Ventricular Rate: 82 BPM Atrial Rate: 82 BPM P-R Interval: 186 ms QRS Duration: 110 ms Q-T Interval: 412 ms QTC Calculation(Bazett): 481 ms P Shirley: 23 degrees R Shirley: -40 degrees T Shirley: 109 degrees Normal sinus rhythm Left axis deviation Left ventricular hypertrophy with repolarization abnormality ( R in aVL , Converse product ) Prolonged QT Abnormal ECG When compared with ECG of 03-OCT-2023 12:03, Significant changes have occurred Confirmed by CAMILA LESTER MD ([id number]) on 10/04/2023 8:31:32 AM [place]: CAMILA LESTER MD * Event Display: ECG 12-Lead Authored Date: Please click on pdf link to open report * Event Display: ECG 12-Lead Authored Date: Ventricular Rate: 43 BPM Atrial Rate: 43 BPM P-R Interval: 284 ms QRS Duration: 130 ms Q-T Interval: 494 ms QTC Calculation(Bazett): 417 ms P Shirley: 27 degrees R Shirley: -47 degrees T Shirley: -46 degrees Marked sinus bradycardia with 1st degree A-V block Left axis deviation Left ventricular hypertrophy with QRS widening and repolarization abnormality Abnormal ECG When compared with ECG of 03-OCT-2023 06:34, OR interval has increased Vent. rate has decreased BY 50 BPM Nonspecific T wave abnormality now evident in Inferior leads T wave inversion more evident in Lateral leads QT has shortened Confirmed by Jose Aguilera ([id number]) on 10/03/2023 12:16:35 PM [place]: Jose Aguilera * Event Display: ECG 12-Lead Authored Date: [id number] Please click on pdf link to open report * Event Display: ECG 12-Lead Authored Date: [id number] Ventricular Rate: 93 BPM Atrial Rate: 93 BPM P-R Interval: 170 ms QRS Duration: 114 ms Q-T Interval: 386 ms QTC Calculation(Bazett): 479 ms P Shirley: 19 degrees R Shirley: -42 degrees T Shirley: 88 degrees Normal sinus rhythm Left axis deviation Left ventricular hypertrophy with repolarization abnormality Abnormal ECG When compared with ECG of 06-SEP-2023 07:18, Premature ventricular complexes are no longer Present Confirmed by PETERSON GARCIA ([id number]) on 10/03/2023 7:10:43 AM [place]: PETERSON GARCIA Heart * Event Display: Echocardiogram - Complete Authored Date: [id number] Transthoracic Echocardiography Report (TTE) Patient Demographics Patient Name BEBO SHEPHERD Date of Study 10/04/2023 Corporate Gender Male Facility Race Ethnicity Date of 1940 Height: 66.93 inches Age 83 year(s) Weight: 186.73 pounds Accession Number [id number] BSA: 1.96 m2 Room Number M610 BMI: 29.31 kg/m2 Referring Physician Tanya Vega Interpreting Jeffrey BELTRAN Physician Business Teacher Kenisha LAZARO Fellow Vinicio Gordillo Indications Aortic stenosis and Prosthetic valve function. Clinical History Hypertension. Diabetes Mellitus. Hyperlipidemia. RA Former tobacco use. Previous aortic valve replacement (TAVR 29 mmm Evolut Pro) 10/03/2023 Study Data Type of Study TTE procedure:Echo Complete-(Doppler, Colorflow) with Contrast. Procedure Information:Definity was administered by Sales Account Representative . TAVR post op day 1 TDS, rib artifact Study Date10/04/2023 Start Time: 06:17 AM Study Location: [facility] [place] Adult Echo Study Status: Bedside Patient Status: Routine Technical Quality: Technically difficult due to body habitus. Blood Pressure:115/53 mmHg EKG: Sinus with ectopy HR: 80 bpm Contrast Medium: Definity. Amount - 2 ml Allergies - Penicillins. - Zosyn. 2D Measurements LV Diastolic Dimension: 4.5 cm LV Systolic Dimension: 2.5 cm LV Septum Diastolic: 0.9 cm LV PW Diastolic: 0.9 cm AO Root Dimension: 3 cm LA Dimension: 4.4 cm LVOT Stroke Volume: 68.77 ml LVOT: 2 cm Stroke Volume Index35.09 ml/m2 Ascending Aorta:2.8 cm Cardiac Index:2.81 l/min/m2 Doppler Measurements AV Peak Velocity: 171 cm/s MV Peak E-Wave: 130 cm/s AV Peak Gradient: 11.7 mmHg MV Peak A-Wave: 149 cm/s AV Mean Gradient: 5 mmHg MV E/A Ratio: 0.87 AV VTI:28.3 cm MV P1/2t: 78 msec LVOT Peak Velocity: 124 cm/s MV Mean Gradient: 5 mmHg LVOT VTI21.9 cm MV Area (continuity): 1.98 cm2 AV Area (Continuity):2.43 cm2 MV Deceleration Time: 267 msec MV Area (PHT): 2.82 cm2 PV Peak Velocity: 92.7 cm/s E' Septal Velocity: 5.66 cm/s PV Peak Gradient: 3.44 mmHg E' Lateral Velocity: 5.66 cm/s E/Med E':22.9682 E/Lat E':22.9682 Cardiac Anatomy Left Ventricle/Interventricular Septum The left ventricular size is normal. Left ventricular wall thickness is normal. The LV systolic function is normal . The left ventricular ejection fraction is 65-75 %. There are no regional wall motion abnormalities. Grade II, moderate diastolic dysfunction with pseudonormal LV filling pattern and increased LA pressure. Left Atrium/Interatrial Septum The left atrium is severely dilated. Aortic Valve There is a transcatheter aortic valve implantation (FAINA Evolut FX #29 per history) in the aortic position. There is no definite central or perivalvular aortic insufficiency on limited views. The mean gradient across the aortic valve is 5 mmHg with a peak gradient of 9 mm Hg. Mitral Valve The mitral valve appears severely calcified. There is reduced mobility of both leaflets. There is mild mitral stenosis with mean gradient of 5 mmHg. Aorta The ascending aorta and aortic root are normal in size. Right Ventricle The right ventricle is poorly visualized. The right ventricular size and function appears grossly normal. Right Atrium The right atrium is poorly visualized. Pulmonic Valve There is trace pulmonic regurgitation. Tricuspid Valve There is trace regurgitation. Pumonary Artery An accurate pulmonary artery pressure could not be obtained. Venous Structures The inferior vena cava appears normal. Pericardium/Extracardiac There is no significant pericardial effusion. Summary The left ventricular size is normal. Left ventricular wall thickness is normal. The LV systolic function is normal . The left ventricular ejection fraction is 65-75 %. There are no regional wall motion abnormalities. Grade II, moderate diastolic dysfunction with pseudonormal LV filling pattern and increased LA pressure. The left atrium is severely dilated. There is a transcatheter aortic valve implantation (FAINA Evolut FX #29 per history) in the aortic position. There is no definite central or perivalvular aortic insufficiency on limited views. The mean gradient across the aortic valve is 5 mmHg with a peak gradient of 9 mm Hg. The mitral valve appears severely calcified. There is reduced mobility of both leaflets. There is mild mitral stenosis with mean gradient of 5 mmHg. The right ventricle is poorly visualized. The right ventricular size and function appears grossly normal. Comparison Comparison is made to the study of October 03, 2023. Previous study limited, direct comparison cannot be made. Signature * Event Display: Echocardiogram - Complete Authored Date: [id number] * Event Display: Echocardiogram - Complete Authored Date: [id number] Transthoracic Echocardiography Report (TTE) Patient Demographics Patient Name BEBO SHEPHERD Date of Study 10/03/2023 Corporate Gender Male Facility Race Ethnicity Date of 1940 Height: 66.93 inches Age 83 year(s) Weight: 186.73 pounds Accession Number [id number] BSA: 1.96 m2 Room Number [id number] BMI: 29.31 kg/m2 Referring Physician Duke Tovar MD PA Physician Business Teacher Carmen Lacy Indications Aortic stenosis. Additional Indications:TAVR 29M Clinical History Study Data Type of Study TTE procedure:Echo 2D Limited or Follow-up, Colorflow, Doppler Follow-up or Limited. Study Date10/03/2023 Start Time: 11:08 AM Study Location: [facility] [place] Adult Echo Study Status: cytogenetics laboratory manager Patient Status: Routine Technical Quality: Fair Blood Pressure:114/77 mmHg EKG: Sinus with ectopy HR: 55 bpm Allergies - Penicillins. - Zosyn. 2D Measurements LVOT Stroke Volume: 113.04 ml LVOT: 2.4 cm Stroke Volume Index57.67 ml/m2 Cardiac Index:3.17 l/min/m2 Doppler Measurements AV Peak Velocity: 116 cm/s AV Peak Gradient: 5.38 mmHg AV Mean Gradient: 4 mmHg AV VTI:32.3 cm LVOT Peak Velocity: 105 cm/s LVOT VTI25 cm AV Area (Continuity):3.5 cm2 Cardiac Anatomy Aortic Valve There is a transcatheter aortic valve implantation (FAINA Evolut FX #29) in the aortic position. There is no central aortic insufficiency. There is no paravalvular leak. Pericardium/Extracardiac There is no significant pericardial effusion. Summary There is a transcatheter aortic valve implantation (FAINA Evolut FX #29) in the aortic position. There is no central aortic insufficiency. There is no paravalvular leak. Comparison Comparison is made to the external study of July 18, 2023. There is a transcatheter aortic valve implantation (FAINA Evolut FX #29) in the aortic position. Signature * Event Display: Echocardiogram - Complete Authored Date: Hospital Progress note * Candis Rodriguez RN: PERFORM, SIGN, VERIFY Event Display: Progress Note Hospital Authored Date: Patient: BEBO SHEPHERD Age: 83 years Sex: Male : 1940 Associated Diagnoses: None Author: Candis Rodriguez RN Findings Narrative/Incidental pt L groin with significant ecchymosis, hematoma. dressing intact with staining outlined- has not went outside of prev staining. pt amb in [place] without further bleeding. plan for possible dc today.. * Candis Rodriguez RN: MODIFY, SIGN, PERFORM, SIGN, VERIFY Event Display: Progress Note Hospital Authored Date: Patient: BEBO SHEPHERD Age: 83 years Sex: Male : 1940 Associated Diagnoses: None Author: Candis Rodriguez RN Findings Narrative/Incidental pt arrived via stretcher and slid to bed. pt pod 0 TAVR. R groin pressure dressing intact without staining. R radial DSD c/d/i/. scattered brusing and small skin tear on R arm. pt denies cp, sob. SR on tele. palp pulses. vss. voiding in urinal. -RN for patient to manage blood glucose levels. basal rate of 1.1131/hr and pt will bolus himself as needed. pt bedrest until 1999. pt and pt daughter educated on plan. fall risk measures in place, call appiah within reach. see cis for full bio. 1845- noted dsd under pressure dressing saturated. Puentes aware. per phu Puentes which was done at 1900.. * Alden RN, Mai: PERFORM, SIGN, VERIFY Event Display: Progress Note Hospital Authored Date: Patient: BEBO SHEPHERD Age: 83 years Sex: Male : 1940 Associated Diagnoses: None Author: Mai Ruano RN Findings Narrative/Incidental @ 1615 R groin dressing noted to be saturated, no hematoma, + R pp, pressure held and PA Tanya paged to the bedside, PA injected epi/lidocaine and new pressure dressing applied, no further oozing noted, reported called and pt tx to M6. Patient Care team information Care Team Personnel Name: Gisselle Gilman MD Position: [facility] Outreach Member Role: PCP Address: Address: [address] [place] [address]- Care Team Related Persons Name: LUISITO SHEPHERD Address: [address] [address] Name: GRACIE SHEPHERD Address: [place] [address]
--- OUTSIDE RECORDS SUMMARY | 2024-01-01 06:49 | XMS_ITS | Continuity of Care Document ---
Author Organization [facility] Jen tre[facility] Address [address] [place] [address] [place] [address]- Care Team Providers Care Oxyacetylene Torch Operator Name Role Phone Gisselle Gilman MD Primary Care Physician Encounter [facility] [place] Date(s): 09/08/23 - 10/08/23 [facility] [address] [place] [address] Drive [address] [place] [address]- Attending Physician: Olya Torres Admitting Physician: Olya Torres Referring Physician: Olya Torres Referring Physician: Luz Maria Johnson MA Allergies, Adverse Reactions, Alerts Substance Reaction Severity Status penicillin Active Zosyn Active Medications (Vitamin D3) Cholecalciferol 400 LONG-TERM units/mL oral syringe 1 mL = 10 [...] opioid drug. Start Date: 10/03/23 Status: Ordered hydroxychloroquine 200 mg oral tablet 200 mg, 1, tablet, By Mouth, Daily, Refills 0, Maintenance, 10/03/23 8:47:00 EDT, Partial fill uponpatient request if the prescription is for a schedule II opioid drug. Start Date: 10/03/23 Status: Ordered losartan 50 mg oral tablet 100 mg, 2, tablet, By Mouth, Daily, # 30 tablet, Soft Stop Start Date: 09/22/08 Stop Date: 10/21/08 Status: Ordered NovoLog Inj as directed, Subcutaneous Infusion, 3 [...] opioid drug. Start Date: 09/06/23 Status: Ordered Social History Social History Type Response Smoking Status Former smoker; Tobac co user in household: No entered on: 09/12/17 Sex Patient Care team information Care Team Personnel Name: Gisselle Gilman MD Position: S Outreach Member Role: PCP Address: Address: [address] [place], [place] [id number]- Care Team Related Persons Name: LUISITO SHEPHERD Address: [address] [address] Name: GRACIE SHEPHERD Address: [address] [address]
--- OUTSIDE RECORDS SUMMARY | 2024-01-01 06:49 | XMS_ITS | Continuity of Care Document ---
Author Organization [facility] Jen trey Address [address] [place] [address] [place] [address]- Care Team Providers Care Principal Strategist Name Role Phone Kalina KOHLI, Gisselle Pham Primary Care Physician Encounter [facility] Date(s): 10/04/23 - 11/03/23 [facility] Surgery [address] [place] [address] Drive [address] [place] [address]- Referring Physician: Luz Maria Johnson MA Allergies, Adverse Reactions, Alerts Substance Reaction Severity Status penicillin Active Zosyn Active Medications (Vitamin D3) Cholecalciferol 400 HALF-WAY units/mL oral syringe 1 mL = 10 [...] S Outreach Member Role: PCP Address: Address: [address] [place] [address]- Care Team Related Persons Name: LUISITO SHEPHERD Address: [place] [address] Name: GRACIE SHEPHERD Address: [place] [address]
--- OUTSIDE RECORDS SUMMARY | 2024-01-01 06:49 | XMS_ITS | Continuity of Care Document ---
Author Organization [facility] Jen tre[facility] Address [address] [place] [address]- Care Team Providers Care Social Work Case Manager Name Role Phone Gisselle Gilman MD Primary Care Physician Encounter [facility] [place] Date(s): 08/02/23 - 09/01/23 [facility] [address] [place] [address]- Allergies, Adverse Reactions, Alerts Substance Reaction Severity Status penicillin Active Zosyn Active Medications (Vitamin D3) Cholecalciferol 400 CUSTODIAL units/mL oral syringe 1 mL = 10 mcg, By Mouth, Daily, 0 Refills, Maintenance, 11/18/20 9:38:00 EDT, Partial fill upon patient request if the prescription is for a schedule II opioid drug. Start Date: 11/18/20 Status: Ordered amLODIPine 2.5 mg oral tablet 2.5 mg, 1, tablet, By Mouth, Daily, Refills 0, Maintenance, 04/24/17 14:19:16 Start Date: 04/24/17 Status: Ordered aspirin (OP) 0 Refills, Maintenance, 2 Start Date: 11/18/20 Status: Ordered atorvastatin 10 mg oral tablet 1 tablet = 10 mg, By Mouth, Daily, 0 Refills, Maintenance, 11/18/20 9:38:00 EDT, Partial fill upon patient request if the prescription is for a schedule II opioid drug. Start Date: 11/18/20 Status: Ordered Citalopram By Mouth, Daily, 0 Refills, Maintenance, 11/18/20 9:37:00 EDT, Partial fill upon patient request ifthe prescription is for a schedule II opioid drug. Start Date: 11/18/20 Status: Ordered Cyclobenzaprine By Mouth, 0 Refills, Maintenance, 11/18/20 9:37:00 EDT, Partial fill upon patient request if the prescription is for a schedule II opioid drug. Start Date: 11/18/20 Status: Ordered Furosemide Daily, 0 Refills, Maintenance, 07/14/18 12:06:53 EST Start Date: 07/14/18 Status: Ordered gabapentin 300 mg oral tablet 300 mg, 09/22/08 6:18:08 Start Date: 09/22/08 Stop Date: 10/22/08 Status: Ordered ibuprofen 800 mg oral tablet 800 mg, 1, tablet, By Mouth, 3 times a day, Refills 0, Maintenance, 09/07/16 15:01:55 Start Date: 09/07/16 Status: Ordered loperamide 1 mg/5 mL oral liquid 5 mL = 1 mg, By Mouth, 3 times a day, PRN for loose stool, # 120 mL, 0 Refills, Maintenance, 03/20/18 10:22:12 EDT, Liquid Start Date: 03/20/18 Status: Ordered losartan 50 mg oral tablet 1, tablet, By Mouth, Daily, # 30 tablet, 09/22/08 6:16:18 Start Date: 09/22/08 Stop Date: 10/21/08 Status: Ordered NovoLog Inj as directed, Subcutaneous Infusion, 3 times a day, 09/22/08 6:20:37 Start Date: 09/22/08 Status: Ordered NuLYTELY with Flavor Packs oral powder for reconstitution See Instructions, 240 mL By Mouth Every 15 minutes, # 4,000 mL, 0 Refills, Maintenance, 04/10/18 10:21:35 EDT, 240 mL By Mouth Every 15 minutes Start Date: 04/10/18 Status: Ordered omeprazole 20 mg oral delayed release tablet = 20 mg, By Mouth, 2 times a day, # 180 capsule, 0 Refills, Maintenance, 08/06/18 15:35:00 EST, EC Tablet Start Date: 08/06/18 Stop Date: 11/04/18 Status: Ordered pilocarpine 5 mg oral tablet 1 tablet = 5 mg, By Mouth, 4 times a day, 0 Refills, Maintenance, 11/18/20 9:39:00 EDT, Partial fill upon patient request if the prescription is for a schedule II opioid drug. Start Date: 11/18/20 Status: Ordered PredniSONE 1 mg/mL Liquid = 5 mg, By Mouth, Daily, 0 Refills, Maintenance, 09/07/16 15:00:57 Start Date: 09/07/16 Status: Ordered PreserVision By Mouth, Daily, 0 Refills, Maintenance, 11/18/20 9:39:00 EDT, Partial fill upon patient request ifthe prescription is for a schedule II opioid drug. Start Date: 11/18/20 Status: Ordered Probiotic Formula By Mouth, Daily, 0 Refills, Maintenance, 11/18/20 9:38:00 EDT, Partial fill upon patient request ifthe prescription is for a schedule II opioid drug. Start Date: 11/18/20 Status: Ordered Uceris 9 mg oral tablet, extended release 1 tablet = 9 mg, By Mouth, Daily in AM, # 90 tablet, 1 Refills, Maintenance, 11/24/17 12:28:28 EDT,ER Tablet Start Date: 11/24/17 Stop Date: 05/23/18 Status: Ordered zinc (as acetate) 50 mg oral capsule 1 capsule = 50 mg, By Mouth, 3 times a day, on an empty stomach 1 hour before or 2 hours after eating, # 250 capsule, 0 Refills, Maintenance, 09/12/17 14:31:02 EDT, Capsule Start Date: 09/12/17 Status: Ordered Social History Social History Type Response Smoking Status Former smoker; Tobac co user in household: No entered on: 09/12/17 Sex Patient Care team information Care Team Personnel Name: Gisselle Gilman MD Position: [facility] Outreach Member Role: PCP Address: Address: [address] [place] [address]- Care Team Related Persons Name: LUISITO SHEPHERD Address: [address] [address]
--- OUTSIDE RECORDS SUMMARY | 2024-01-01 06:49 | XMS_ITS | Continuity of Care Document ---
Author Organization [facility] Cardiac Jen trey Address [address] [place] [address] [place] [address]- Care Team Providers Care Custodian Name Role Phone Kalina KOHLI, Gisselle Pham Primary Care Physician [place] [facility] [place]): [place]08[place]23 - 09/15/23 [facility] Cardiac Surgery [address] [place] [address] Drive [address] [place], [place] [address] Attending Physician: Sushant KOHLI, Ahmet Garcia Referring Physician: Román Mclean MD Allergies, Adverse Reactions, Alerts Substance Reaction Severity Status penicillin Active Zosyn Active Medications (Vitamin D3) Cholecalciferol 400 MCC units/mL oral syringe 1 mL = 10 [...] 12:06:53 EST Start Date: 07/14/18 Status: Ordered losartan 50 mg oral tablet [...] opioid drug. Start Date: 09/06/23 Status: Ordered Vital Signs Most recent to oldest [Reference Range]: 1 Height 170.2 cm (09/08/23 9:18 AM) Weight 80.2 kg (09/08/23 9:18 AM) Oxygen Saturation [94-100 %] 98 % (09/08/23 9:18 AM) Pulse Rate [55-90 bpm] 80 bpm (09/08/23 9:18 AM) Body Mass Index [18.5-24.99 kg/m2] 27.69 kg/m2 *H* (09/08/23 9:18 AM) Blood Pressure [90-138/55-84 mm Hg] 144/ 72mm Hg *H* (09/08/23 9:18 AM) Respiratory Rate [16-30 br/min] 20 br/mi n (09/08/23 9:18 AM) Temperature [96.8-100.4 DegF] 97.8 DegF (09/08/23 9:18 AM) Mode of Delivery (Oxygen) Room air (09/08/23 9:18 AM) Blood pressure sites Arm, left (09/08/23 9:18 AM) Temperature Route Oral (09/08/23 9:18 AM) Dry Weight 80.2 kg (09/08/23 9:18 AM) Weight Obtained Via Patient/family state d (09/08/23 9:18 AM) Dry Weight Obtained Via Patient/family s tated (09/08/23 9:18 AM) Social History Social History Type Response Smoking Status Former smoker; Tobac co user in household: No entered on: 09/12/17 Sex Cardiac surgery Outpatient Note * Sushant KOHLI, Ahmet Garcia: PERFORM Event Display: Cardiac Surgery Note Office Authored Date: Patient: ??BEBO SHEPHERD ? Age:??83 Years?Sex:??Male?:??1940?? History of Present Illness Bebo Shepherd??is an 83-year-old white male who presents with a 6-month history of progressive symptoms??of??shortness of breath??with exertion.?? He??reports that his symptoms have??progressed to thepoint where??he??becomes short of breath even walking to the mailbox outside his home.?? He also relates a significant history of lightheadedness, particularly over the last several months, but denies a history of??syncope. ??His cardiovascular history is otherwise remarkable for??chest pain syndrome??for which he has undergone??diagnostic cardiac catheterization.?? 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 There was also found to be a 50% stenosis??in the diagonal branch at that time.?? He has previously undergone stress testing??which demonstrated evidence of??ST segment depression in the inferolat eral leads??but no evidence of ischemia.?? The remainder of his cardiovascular history is remarkable for??hypertension,??hyperlipidemia??and bradycardia. ?? His??past medical history is otherwise remarkable for??insulin-dependent diabetes mellitus.?? He??currently manages his diabetes with an insulin pump??on the anterior abdominal wall.?? The remainder of his past medical history is remarkable for??rheumatoid arthritis and osteoporosis. ?? As result of his progressive symptoms of??dyspnea on exertion, he underwent an echocardiogram on 07/18/2023. ??This study demonstrated??a normal ejection fraction.?? There was severe aortic valve stenosis present with a mean gradient of??31 mmHg across the aortic valve, a dimensionless index of 0.29??and a calculated aortic??valve area of 1.0 cm??. ?? His??past surgical history is remarkable for??a left carotid endarterectomy approximately 5 months ago,??multiple prior back surgeries for spinal stenosis, bilateral carpal tunnel releases,??surgeries of both wrists, a??cholecystectomy,??and appendectomy. ?? He is a??prior cigarette smoker but reports having stopped smoking in 1962.?? Prior to this, his total smoking history??is 20 pack years.?? He denies using alcohol on a regular basis. ?? His current medications include Lasix 20 mg p.o. daily, amlodipine??2.5 mg p.o. daily,??Plaquenil??200 mg p.o. twice daily,??citalopram??20 mg p.o. daily, cholecalciferol??50 mcg p.o.??twice daily, tamsulosin??0.4 mg p.o. daily, calcium??200 mg p.o. twice daily, prednisone??5 mg p.o. daily,??NovoLog insulin??administered via pump??daily,??Flexeril 10 mg p.o. daily, gabapentin??600 mg p.o.??twice daily, omeprazole??20 mg p.o. daily, pilocarpine 5 mg??p.o. twice daily, and??atorvastatin??40 mg p.o. daily. ?? Allergies: He reports being allergic to penicillins, tazobactam??and Zosyn ?? Due to his progressive symptoms of shortness of breath and??lightheadedness,??he??presents to clinic today to??review options for replacement of his aortic valve. Review of Systems Cardiac: Symptoms of congestion: No Symptomatic hypotension: No Symptoms of ischemia: No Constitutional:?? Recent infection: No; no fever, no chills Unintentional weight loss/cachexia: No Respiratory: Symptomatic primary lung disease: No; No cough, No shortness of breath? All other systems are negative unless noted above. Physical Exam Vitals & Measurements T:??97.8?F?? HR:??80??(Peripheral)?? RR:??20?? BP:??144/72?? SpO2:??98%?? HT:??170.2??cm?? WT:??80.2??kg?? BMI:??27.69?? Cardiac: No jugular venous distension No peripheral edema?? Regular??heart??rhythm He??has equal carotid pulses with no carotid bruits. ??He has a well-healed left carotid endarterectomy incision on his left neck. ??He??has mild varicose veins but no??leg edema. General Appearance:??Obese??body habitus and??obvious frailty Eyes:??Non-icteric Pulmonary:??Normal respiratory effort. Clear to auscultation. No wheezing, rales or rhonchi Cardiac:??Regular rate and rhythm, III/ holosystolic murmur heard best at the upper??right sternal border, no S3 or S4 present. Sternum is stable on palpation. No prior sternal incisions. Vascular:??1+ femoral pulses bilaterally Gastrointestinal:??Soft, non-tender, no obvious ascites Musculoskeletal:??Significant and??overt mechanical limitations on movement and mobility??of??the back and both lower extremities Skin:??Intact, no rashes Neurological:??Alert and oriented, no gross deficits Psychiatric:??Appropriate mood and affect?? Assessment/Plan Bebo Shepherd is an 83-year-old white male who presents??with a 6-month history of progressive symptoms of??dyspnea on exertion??and lightheadedness.?? His symptoms have progressed to the point??wherehe is now significantly limited in terms of his??level of??activity, particularly outside of his home.?? His workup, including an echocardiogram, demonstrates the presence of??severe aortic valve stenosis.?? 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 ?? Due to his multiple medical comorbidities??and frailty,??I have calculated his STS risk score for mortality with sternotomy and open aortic valve replacement at??14.8%.?? Based on this finding,??I have recommended to him that he undergo a transcatheter aortic valve replacement??to reduce his periprocedural risk of morbidity and mortality.?? He is in agreement with this plan. ?? I have reviewed the planned procedure of transcatheter aortic valve replacement with the patient??preprocedure.?? I have also reviewed the potential complications of the procedure which include but are not limited to:??bleeding, infection,??arrhythmias, stroke,??myocardial infarction,??congestive heart failure, heart??block requiring pacemaker placement??and .?? He understands these risksand wishes to proceed??with transcatheter aortic valve replacement. Follow-Up Appointments No qualifying data available Problem List/Past Medical History Ongoing No qualifying data Procedure/Surgical History ???Colonoscopy abnormal (04/28/2018) Medications (Vitamin D3) Cholecalciferol 400 MCC units/mL oral syringe 1 mL, 10 mcg, By Mouth, Daily Actemra 162 mg/0.9 mL subcutaneous solution, 162 mg, Subcutaneous Injection, Every week amLODIPine 2.5 mg oral tablet, 2.5 mg= 1 tablet, By Mouth, Daily aspirin (OP) atorvastatin 10 mg oral tablet, 40 mg, By Mouth, Daily Calcium Citrate, 800 mg, By Mouth, Daily Cyclobenzaprine, 10 mg, By Mouth, Daily at bedtime Furosemide, 20 mg, By Mouth, Daily losartan 50 mg oral tablet, 100 mg= 2 tablet, By Mouth, Daily NovoLog Inj, as directed, Subcutaneous Infusion, 3 times a day omeprazole 20 mg oral delayed release tablet, 20 mg, By Mouth, 2 times a day pilocarpine 5 mg oral tablet, 5 mg= 1 tablet, By Mouth, 4 times a day predniSONE 2 mg oral delayed release tablet, 4 mg= 2 tablet, By Mouth, Daily PreserVision, By Mouth, Daily Probiotic Formula, By Mouth, Daily tamsulosin 0.4 mg oral capsule, 0.4 mg= 1 capsule, By Mouth, Daily testosterone (OP), 60.75 mg, Every Monday Tylenol 8 Hour 650 mg oral tablet, extended release, 1300 mg= 2 tablet, By Mouth, Every 8 hours, PRN Allergies Zosyn penicillin Social History Tobacco Former smoker, Tobacco user in household: No. * Belia Hua: PERFORM, SIGN, VERIFY Event Display: Cardiac Surgery Note Office Authored Date: Patient: BEBO SHEPHERD Age: 83 years Sex: Male : 1940 Associated Diagnoses: None Author: Belia Hua Hortense Cardiomyopathy Questionnaire (CQ-12) The following questions refer to your heart failure and how it may affect your life. Please read and complete the following questions. There is no right or wrong answers. Please fernando the answer that best applies to you. 1. Heart failure affects different people in different ways. Some feel shortness of breath while others feel fatigue. Please indicate how much you are limited by heart failure (shortness of breath orfatigue) in your ability to do the following activities over the past 2 weeks. a. Showering/bathing: Extremely Limited (_) 1 Quite a bit limited (_) 2 Moderately Limited (_) 3 Slightly Limited (_) 4 Not at all Limited (_X) 5 Limited for other reasons or did not do the activity (_) 6 b. Walking 1 block on level ground: Extremely Limited (_) 1 Quite a bit limited (X_) 2 Moderately Limited (_) 3 Slightly Limited (_) 4 Not at all Limited (_) 5 Limited for other reasons or did not do the activity (_) 6 c. Hurrying or jogging (as if to catch a bus): Extremely Limited (_) 1 Quite a bit limited (_) 2 Moderately Limited (X_) 3 Slightly Limited (_) 4 Not at all Limited (_) 5 Limited for other reasons or did not do the activity (_) 6 2. Over the past 2 weeks, how many times did you have swelling in your feet, ankles or legs when you woke up in the morning? Every Morning (_) 1 3 or more times per week but not every day (_) 2 1-2 times per week (_) 3 Less than once a week (_) 4 Never over the past 2 weeks (X_) 5 3. Over the past 2 weeks, on average, how many times has fatigue limited your ability to do what you wanted? All of the time (_) 1 Several Times per day (_) 2 At least once a day (_) 3 3 or more times per week but not every day (_X) 4 1-2 times per week (_) 5 Less than once a week (_) 6 Never over the past 2 weeks (_) 7 4. Over the past 2 weeks, on average, how many times has shortness of breath limited your ability to do what you wanted? All of the time (_) 1 Several Times per day (_) 2 At least once a day (X_) 3 3 or more times per week but not every day (_) 4 1-2 times per week (_) 5 Less than once a week (_) 6 Never over the past 2 weeks (_) 7 5. Over the past 2 weeks, on average, how many times have you been forced to sleep sitting up in a chair or with at least 3 pillows to prop you up because of shortness of breath? Every night (_) 1 3 or more times per week but not every day (_) 2 1-2 times per week (_) 3 Less than once a week (_) 4 Never over the past 2 weeks (_X) 5 6. Over the past 2 weeks, how much has your heart failure limited your enjoyment of life? It has extremely limited my enjoyment of life (_) 1 It has limited my enjoyment of life quite a bit (_) 2 It has moderately limited my enjoyment of life (X_) 3 It has slightly limited my enjoyment of life (_) 4 It has not limited my enjoyment of life at all (_) 5 7. If you had to spend the rest of your life with your heart failure the way it is right now, how would you feel about this? Not at all satisfied (X_) 1 Mostly dissatisfied (_) 2 Somewhat satisfied (_) 3 Mostly satisfied (_) 4 Completely satisfied (_) 5 8. How much does your heart failure affect your lifestyle? Please indicate how your heart failure may have limited your participation in the following activities over the past 2 weeks. a. Hobbies, recreational activities: Severely Limited (_) 1 Limited quite a bit (_X) 2 Moderately Limited (_) 3 Slightly Limited (_) 4 Did not limit at all (_) 5 Does not apply or did not do for other reasons (_) 6 b. Working or doing vessel slagman: Severely Limited (_) 1 Limited quite a bit (_X) 2 Moderately Limited (_) 3 Slightly Limited (_) 4 Did not limit at all (_) 5 Does not apply or did not do for other reasons (_) 6 c. Visiting family or friends out of your home: Severely Limited (_) 1 Limited quite a bit (_) 2 Moderately Limited (_) 3 Slightly Limited (X_) 4 Did not limit at all (_) 5 Does not apply or did not do for other reasons (_) 6 Total Score: _39 * Belia Hua: PERFORM, SIGN, VERIFY Event Display: Cardiac Surgery Note Office Authored Date: Patient: BEBO SHEPHERD Age: 83 years Sex: Male : 1940 Associated Diagnoses: None Author: Belia Hua TAVR Program Functional Assessment Test The KCCQ12 questionnaire was documented separately from this series of tests. A walk and carrier loader tests were performed on this patient with the following results: Walk Test- Five-meter Gait Speed #1 - _sec 7.18 #2 - _sec 6.63 #3 - _sec 7.21 Equals = _sec 21.02 Average = _sec 7.01 Average Adult Senior Estimator Strength (kg) Right: #1 - _kg #2 - _kg #3 - _kg Equals = _kg Average = _kg Graded Classification: _ Left: #1 - _kg #2 - _kg #3 - _kg Equals = _kg Average = _kg Graded Classification: _ Patient Care team information Care Team Personnel Name: Gisselle Gilman MD Position: [facility] Outreach Member Role: PCP Address: Address: [address] [place] [address]- Care Team Related Persons Name: LUISITO SHEPHERD Address: [address] [address] Name: GRACIE SHEPHERD Address: [place] [id number]
--- OUTSIDE RECORDS SUMMARY | 2024-01-01 06:49 | XMS_ITS | Continuity of Care Document ---
Author Organization [facility] ter Address [address] [place] [id number]- Care Team Providers Care Autopsy Assistant Name Role Phone Gisselle Gilman MD Primary Care Physician Encounter [facility] [place] Date(s): 09/06/23 - 09/06/[address] [id number] Discharge Disposition: A-D/C Home Attending Physician: Román Mclean MD Admitting Physician: Román Mclean MD Referring Physician: Román Mclean MD Allergies, Adverse Reactions, Alerts Substance Reaction Severity Status penicillin Active Zosyn Active Medications (Vitamin D3) Cholecalciferol 400 GROUP HOME units/mL oral syringe 1 mL = 10 [...] Date: 09/22/08 Stop Date: 10/22/08 Status: Ordered losartan 50 mg oral tablet [...] opioid drug. Start Date: 09/06/23 Status: Ordered Uceris 9 mg oral tablet, extended release 1 tablet = 9 mg, By Mouth, Daily in AM, # 90 tablet, 1 Refills, Maintenance, 11/24/17 12:28:28 EDT,ER Tablet Start Date: 11/24/17 Stop Date: 05/23/18 Status: Ordered Vital Signs Most recent to oldest [Reference Range]: 1 2 3 Oxygen Saturation [94-100 %] 91 % *L* (09/06/23 4:45 PM) 91 % *L* (09/06/23 4:15 PM) 92 % *L* (09/06/23 3:45 PM) Blood Pressure [90-138/55-84 mm Hg] 121/62mm Hg (09/06/23 4:45 PM) 93/60mm Hg (09/06/23 4:15 PM) 101/75mm Hg (09/06/23 3:45 PM) Respiratory Rate [16-30 br/min] 21 br/min (09/06/23 4:45 PM) 18 br/min (09/06/23 4:15 PM) 17 br/min (09/06/23 3:45 PM) Mode of Delivery (Oxygen) Room air (09/06/23 2:00 PM) Room air (09/06/23 1:45 PM) Blood pressure sites Arm, left (09/06/23 2:00 PM) Arm, left (09/06/23 1:45 PM) Social History Social History Type Response Smoking Status Former smoker; Tobac co user in household: No entered on: 09/12/17 Sex Cardiac catheterization study * Event Display: Cardiac Technical Agronomist Report Authored Date: Cardiac Diagnostic Report Demographics Patient Name CORA LAGUNAS Gender Male [employer] Room Number [id number] Height 67 inches Date of 1940 Weight 181.22 pounds Age 83 year(s) BSA 1.94 m2 Accession Number [id number] BMI 28.38 kg/m2 Referring Physician Román Mclean MD Date of Study 09/06/2023 Performing Physician Román Mclean MD Fellow Interventional Physician Román Mclean MD Procedure Procedure Type Diagnostic procedure:Coronary Angiography with [facility] Diagnostic Catheterization Status:Elective Indications Indications: Shortness of breath w/exertion and Aortic stenosis. Clinical History Admission Medications + +------+--------+ + + +---------+ !Medication !Dosage!Times !Last !Last !Administered !Comments ! ! ! !Per Day !Delivery !Delivery ! ! ! ! ! ! !Date !Time ! ! ! + +------+--------+ + + +---------+ !ARB (any) ! ! ! ! ! ! ! + +------+--------+ + + +---------+ !Statin (any)! ! ! ! ! ! ! + +------+--------+ + + +---------+ Clinical Evaluation Leading to Procedure Diagnosed on 09/06/2023 00:00. - There were no CAD presentation symptoms. - There were no anginal symptoms. - The patient was diagnosed with a heart failure condition. Heart failure type: Diastolic. - The patient's heart failure status was assessed as NYHA Class II, with CHF symptoms of GARCIA ACC Risk Factors The patient risk factors include:treated hypertension. Additional Clinical History:83-year-old man with history of medically managed coronary artery disease based on report of catheterization from over 20 years ago, more recent dyspnea on exertion, echo consistent with severe aortic stenosis. He is referred for coronary angiography Procedure Data Procedure Date Date: 09/06/2023Start: 13:00End: 13:47 The procedure was explained in detail to the patient. Risks, complications and alternative treatments were reviewed. Written consent was obtained. Entry Locations - Retrograde Percutaneous access was performed through the Right Radial artery. A 6 Fr sheath was inserted. Hemostasis was successfully obtained using TR Band. Closure Comments: 14cc. Procedure Medications - Lidocaine 2% S.C. Right Wrist 2 ml. - Versed (Midazolam) I.V. 1 mg. - Fentanyl I.V. 50 mcg. - Nitroglycerin I.A. 200 mcg. - Heparin I.V. 4000 units. - Oxygen NC 2 l/min. Sedation: My intra-service moderate sedation time was: from 1300 to 1339. Refer to procedural log for detailed chronological information. Contrast Material - Omnipaque 100 ml Diagnostic Catheters - APerforma Cardiology Catheter 5F 100 cm JR 4.0was used for: Right coronary angiography. - ADxTerity 5F 100 cm JL 3.5was used for: Left coronary angiography. - ADxTerity 5F 100 cm AL 1.0was used for: Left heart catheterization. - ALANGSTON 6F 145 cm PIGwas used for: Left heart catheterization. - AINFINITI 5F 110 cm PIG 145was used for:Ascending aortogram. - AINFINITI 5F 110 cm PIG 145was used for:Ascending aortogram. Fluoroscopy Time: Diagnostic: 11:10 minutes. Total: 11:10 minutes. Fluoroscopy Dose: Diagnostic: 356 mGy. Total: 356 mGy. Dose Area Product:Diagnostic: 60905 mGy/cm2. Total: 01777 mGy/cm2. Angiographic Findings Cardiac Arteries and Lesion Findings LMCA: Minimal luminal irregularities. 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 Pre procedure SANDRA III flow was noted. RCA: Mild luminal irregularities (<30%). Hemodynamics Condition: Rest O2 Consumption: Estimated: 263.84Heart Rate: 82 bpm Pressures (mmHg) +-----+ + !Site !Pressure ! +-----+ + !LV !148/-13 ,6! +-----+ + !AO !90/53 (69)! +-----+ + !LV !141/-1 ,7 ! +-----+ + !AO !90/52 (68)! +-----+ + !LV !141/-1 ,7 ! +-----+ + Valve Gradients and Areas +------+----+----+----+-----+----+------+ !Valve !Peak!Mean!Area!Index!Flow!Source! +------+----+----+----+-----+----+------+ !Aortic!51 !46 ! ! ! ! ! +------+----+----+----+-----+----+------+ !Aortic!51 !46 ! ! ! ! ! +------+----+----+----+-----+----+------+ Shunts Oxygen Values O2 Capacity 171.36 O2 Consumption 263.84 Interventional Procedure Conclusions Diagnostic Summary Severe OM 2 stenosis Severe aortic stenosis Right radial artery hemostatic with compressive device Diagnostic Recommendations In absence of anginal symptoms, recommend medical management of branch vessel severe stenosis and evaluation for aortic valve replacement strongly favoring TAVR due to age and comorbidities. ACC Diagnostic Recommendations: Other cardiac therapy without CABG or PCI. Complications:None. Signatures * Event Display: Cardiac Technical Agronomist Report Authored Date: Note * Event Display: Hemodynamic Procedure Report Authored Date: * Danika Mas RN: PERFORM Event Display: Discharge/Transfer Note Hospital Authored Date: Nursing Discharge Note Entered On: 09/06/2023 17:48 EDT Performed On: 09/06/2023 17:30 EDT by Danika Mas RN Nursing Discharge Note 2 Discharge Time : 09/06/2023 17:30 EDT Discharge Level of Care at Discharge : Home/Residential/Foster Care Patient Left Unit Via : Wheelchair Patient Accompanied Off Unit with : Responsible adult DC Instructions Provided & Signed by Pt : Yes Patient Understands D/C Instructions : Yes Patient Instructions Discharge Signed : Yes Discharge Comments : IV removed, dc education provided, all questions answered. R radial site c/d/i Did Pt have Specialty Bed or Wound Vac : No Danika Mas RN - 09/06/2023 17:48 EDT * Danika Mas RN: PERFORM Event Display: Patient Education/Instruction Authored Date: Inpatient Adult Discharge Instructions. [address] [address] Name: BEBO SHEPHERD : 1940?? Visit: 09/06/2023 06:34?? Current Date: 09/06/2023 14:28 ?? Account: [id number]?? Inpatient Adult Discharge Instructions We would like [...] and their families. Surveys are administered by [employer] ?? If further treatment with your primary care physician or another doctor is recommended, it is important for you to keep the appointment. Call your primary care physician or return to the Emergency Department immediately if your condition worsens, fails to improve, or new symptoms develop. If you need to find a doctor, you can call [facility] for a referral at [phone] or toll free at [phone] or log in to [email or web address].. ?? [facility], in keeping with [facility] guidance, no longer requires face masks [...] a health care ольга of your choosing. [employer] is a website that allows you to securely view your medical information including your hospital discharge summary, office visit summaries, medications and follow-up visits. You can also request appointments, renew medications, and request access to your medical information using a health care ольга of your choosing, or just ask a question. You can enroll at [email or web address] or register during your next office visit. You have been discharged from [facility], Patient Care Unit: CARE??. If you have any questions regarding these instructions, including results of studies pending, afteryou leave, please call us and we will be happy to assist you 09/01. [facility] Nursing Unit Direct Phone Number, for 09/01 contact and results of studies pending CARE [address] [place] [id number] Your Care Team Attending Physician Román Mclean MD?? Consulting Providers Román Mclean MD?? Discharging Providers Román Mclean MD Tests Performed Below is a partial list of the tests performed during your hospitalization. You may have had other tests and procedures not included in this list. Please discuss all test results with your provider. GLUCOSE POC No tests performed during this visit.?? Primary Care Provider Kalina KOHLI (OB), Gisselle Pham? Advance Directive Health Care Proxy on File No Discharge Vitals Respiratory Rate: 18 br/min Systolic Blood Pressure: 101 mm Hg Diastolic Blood Pressure: 59 mm Hg Oxygen Saturation:??90 %??Low Studies Pending All studies ordered during this hospital stay have been completed unless listed below. Please discuss all pending results with your provider listed above in these instructions. ?? No incomplete studies found?? What to do next Instructions From Your Doctor ?? Orders?? for discharge when band protocol complete, ??09/06/23 13:41:00 EDT?? Scheduled Follow-Up Appointments Monday 9:00 AM EDT ?? With: Sushant KOHLI, Ahmet Garcia Where: [facility] [address] [place] [address]- Status: Pending You Need to Schedule the Following Appointments Follow Up with??Ahmet Canchola When:??09/08/2023 09:00 AM EDT Where: [address] [facility] [address] [facility] [place] [place] [address]- Business (1) Follow Up with??Gisselle Gilman MD When:??In 0 days Where: [address] [place] [phone]- Business (1) Discharge Medications BEBO SHEPHERD :1940 Visit Date:09/06/2023 Medications: Please continue your medications until treatment is completed or stopped by your provider. Medications not listed below should be discontinued. Discuss any questions related to medications with your provider. What How Much When Instructions Next Dose Unchanged Acetaminophen (Tylenol 8 Hour 650 mg oral tablet, extended release) 2 tab(s) Oral Every 8 hours as needed for as needed for pain resume as prescribed, per home schedule Unchanged Amlodipine (amLODIPine 2.5 mg oral tablet) 1 tab(s) Oral Daily resume as prescribed, per home schedule Unchanged Aspirin (aspirin (OP)) resume as prescribed, per home schedule Unchanged Atorvastatin (atorvastatin 10 mg oral tablet) 1 tab(s) Oral Daily resume as prescribed, per home schedule Unchanged bifidobacterium-lactobacillus (Probiotic Formula) Oral Daily resume as prescribed, per home schedule Unchanged Budesonide (Uceris 9 mg oral tablet, extended release) 1 tab(s) Oral Daily in the morning Duration: 90 Days resume as prescribed, per home schedule Unchanged Cholecalciferol ((Vitamin D3) Cholecalciferol 400 GROUP HOME units/ mL oral syringe 1 mL) 10 Microgram Oral Daily resume as prescribed, per home schedule Unchanged Citalopram Oral Daily resume as prescribed, per home schedule Unchanged Cyclobenzaprine Oral resume as prescribed, per home schedule Unchanged Furosemide Daily resume as prescribed, per home schedule Unchanged Gabapentin (gabapentin 300 mg oral tablet) 300 Milligram resume as prescribed, per home schedule Unchanged Insulin Aspart (NovoLog Inj) as directed Subcutaneous Infusion 3 times a day resume as prescribed, per home schedule Unchanged Losartan (losartan 50 mg oral tablet) 1 tab(s) Oral Daily resume as prescribed, per home schedule Unchanged Multivitamin With Minerals (PreserVision) Oral Daily resume as prescribed, per home schedule Unchanged Omeprazole (omeprazole 20 mg oral delayed release tablet) 20 Milligram Oral Twice a day Duration: 90 Days resume as prescribed, per home schedule Unchanged Pilocarpine (pilocarpine 5 mg oral tablet) 1 tab(s) Oral 4 times a day resume as prescribed, per home schedule Unchanged PredniSONE (predniSONE 2 mg oral delayed release tablet) 2 tab(s) Oral Daily resume as prescribed, per home schedule Unchanged Tamsulosin (tamsulosin 0.4 mg oral capsule) 1 capsule Oral Daily resume as prescribed, per home schedule Unchanged Testosterone (testosterone (OP)) 60.75 Milligram Every Monday resume as prescribed, per home schedule Unchanged tocilizumab (Actemra 162 mg/ 0.9 mL subcutaneous solution) 162 Milligram Subcutaneous Injection Every week resume as prescribed, per home schedule Prescription Given During Visit No new medications prescribed at time of discharge.?? Laboratory Results Below is a partial list of the most recent Laboratory test results done prior to this discharge. You may have had other tests and procedures not included in this list. Please discuss all test resultswith your provider. GLUCOSE POC (09/06/2023) ???Glucose, POC - 160 mg/dL Allergies (NKA means No Known Allergies) Zosyn penicillin Problems No qualifying data available Education Materials Below is the list of Educational Leaflet Providered with your Discharge Instructions. [employer] Patient Education - Surgery Radial Cath Approach Discharge Instructions?? [employer] Patient Education - Discharge Instructions for Cardiac Catheterization?? Valuables and Belongings I fully understand and agree that [facility] accepts no responsibility for all my personal [...] encouraged to send valuables and belongings home. ? Other Discharge Information ? Pulmonary Rehab Status?? Pulmonary Rehab Discharge Status?? Respiratory Rate: 18 br/min ? Common Emergency Awareness Tips IS IT A [...] are strongly encouraged to quit. Please call [facility] at [phone] or [phone] or log in to [email or web address] for referrals to smoking cessation programs. ?? 98 Suicide & Crisis Lifeline is available 09/01 if you or someone you know needs to find a reason to keep living. By calling 163 you'll be connected to a skilled, trained counselor at a crisis center in your area. INPATIENT DISCHARGE INSTRUCTIONS SIGNATURE PAGE BEBO SHEPHERD Location:[facility] Registration Date and Time:09/06/2023 06:34 EDT Primary Care Physician: Kalina KOHLI , Gisselle Pham, Attending Physician: Román Mclean MD, I BEBO SHEPHERD, have received the above patient education materials/instructions and have verbalized understanding. If ambulance or transport services are being used I further acknowledge being given a choice of service. ?? If you need to contact me, please call me at this number: . Patient/Professional Architect Name: Patient/Professional Architect Signature: Relationship to Patient: Witness Name/Signature: Date: * Johnathan Saida: PERFORM, SIGN, VERIFY Event Display: Patient Education Handout Authored Date: [id number] * Danika Mas RN: PERFORM Event Display: Patient Education Leaflets Authored Date: [id number] Surgery Radial Cath Approach Discharge Instructions ?? 278 Radial Cath Approach Discharge Instructions ?? Activity Take it easy the rest of the day. Limit your activity on the affected side.?? Act as if your arm is broken for 24 hours. No lifting with affected arm for 24 hours. No pushing or pulling with the affected arm. Do not reach or lift with the affected arm. Do not place excessive pressure on the wrist. ?? Precautions Due to intravenous sedation: It is recommended that someone stay with you for the first night after your procedure. Do not drive or operate hazardous machinery for 24 hours. Do not make legal decisions for 24 hours. Avoid alcohol for 24 hours. Unless directed otherwise, keep yourself hydrated. ?? Dressing/Incision Care You may remove the dressing 24 hours after your procedure. Replace with band aid for an additional 24 hours. You may shower and cleanse the site with soap & water then pat dry. Avoid submersion of site in water x 5 days. Cover the with a clean band aid daily until site is healed. If the band aid becomes soiled, replacewith a clean new one. Do not apply any ointments, lotions, gels or powders to the puncture site. ?? When to contact your doctor If any of the following signs of infection occur: Fever greater than 100 degrees F Increased pain Drainage, redness or warmth at puncture site Tingling of the fingers and hand that last longer than 3 days Slight bubble of blood or bleeding from site: apply manual pressure and notify your doctor ?? Emergency situations: Bleeding from the site that will not stop: apply manual pressure and notify your doctor Profuse bleeding streaming from the puncture site: Apply manual pressure and notify your doctor immediately If your hand becomes bluish, cold to the touch, or painful, notify your doctor immediately or go toEmergency Department. For these emergent situations: If unable to contact your physician, call 911. ?? * Danika Mas RN: PERFORM Event Display: Patient Education Leaflets Authored Date: Discharge Instructions for Cardiac Catheterization ?? [address] Discharge Instructions for Cardiac Catheterization Cardiac catheterization??is an invasive??procedure??to look for certain heart problems. These problems may affect the heart's chambers, valves, and blood vessels. A thin, flexible tube (catheter) is put in a blood vessel in your groin or arm. The catheter is moved to the heart. The healthcare provider can look at the blood flow, blood pressure, and oxygen. They can inject contrast fluid??into your blood. This flows to your heart.??The provider can then take X-rays pictures?? of your heart. Coronary angiography is often done as part of a cardiac cath. This looks for blocked areas in the arteries that send blood to the heart. If a blockage is found, your provider may try to open up the artery. They may put a stent in place. Your provider will talk with you about the results of your procedure . Ask any questions you have before you leave. This sheet will help you take care of yourselfat home. Home care ??? Have a responsible adult drive you home after your procedure. ??? Don't drive or makeany important decisions for at least 24 hours after getting any type of sedation or anesthesia.? Drink?? 6 to 8??glasses of water over the next 24 hours. This is to help flush the contrast dye out of your body. Call your healthcare team if your urine has any change in color. ??? Take your tempe rature each day for 3 to 5 days. If you feel cold and clammy or start sweating, take your temperature right away. Call your healthcare team. ??? Do only light and easy activities for??the next?? 2 to3??days. Ask for help with chores and errands while you recover. Have someone drive you to your appointments. ??? Don't lift anything heavy??until your healthcare team says it's safe. ??? Ask your healthcare team when you can expect to return to work. Unless your job involves lifting, you may be able to return to your normal activities within 2 days. ??? Take your medicines as directed. Don't skip doses. ??? Check your incisions every day for signs of infection. These include redness, swelling,and fluid leaking. It's normal to have a small bruise or bump where the catheter was put in. A bruise that's getting larger is not normal. Tell your healthcare team about this. Call your healthcare team if you see blood forming in the incision. Go to the emergency room if you have uncontrolled bleeding from the artery site. This is even more important if you take medicines that make it hard for your blood to clot. These include aspirin, clopidogrel, warfarin, apixaban, and rivaroxaban. ??? Eat a healthy diet. Make sure it's low in fat, salt, and cholesterol. Ask your healthcare team for diet information. ??? Stop smoking. Sign up for a quit-smoking program. Or ask your healthcare team for help. ??? Exercise as your healthcare team tells you to. Your healthcare team??may advise you to start a cardiac rehab program. Cardiac rehab is an exercise program where trained healthcare staff watchyour progress and stress on your heart while you exercise. Ask your team how to enroll. ??? Don't swim or take baths until your healthcare team says it???s OK. You can shower the day after the procedure. Keep the site clean and dry. This keeps the incision from getting wet and infected until the skin and artery can heal. ??? Follow all other after-care instructions from your team.? Follow-up care ??? Make a follow-up appointment as advised. It's common to have a follow-up appointment 2 to 4 weeks after an angioplasty or coronary stent procedure. ??? Make a yearly appointment. This is??to make sure you're still doing well and not having any new symptoms. ??? Don't wait for a follow-up appointment if your medicines aren't working or you're having heart-related symptoms. Call your healthcare provider. ?? When to get medical care Call your healthcare provider right away if you have any of these: ??? Severe or increasing pain, numbness, coldness, or a bluish color in the leg or arm that held the catheter ??? Fever of 100.4?? F??( 38??C) or higher, or as advised by your healthcare provider ??? Signs of infection at the incision site. These include redness, swelling, drainage, or warmth. ??? Bleeding, bruising, or a lot of??swelling where the catheter was inserted ??? Blood in your urine ??? Black or tarry stools ??? Any unusual bleeding ??? Irregular, very slow, or fast heartbeat ??? Dizziness ?? Call 911 Call 911 if you have any of these: ??? Chest pain ??? Shortness of breath ??? Sudden numbness or weakness in arms, legs, or face, or trouble speaking ??? The puncture site swells up very fast ??? Bleeding from the puncture site that doesn't slow down with firm pressure ?? Last Reviewed Date: 2021 ?? 8812-8289 [employer]. All rights reserved. This information is not intended as a substitute for professional medical care. Always follow your healthcare professional's instructions. ?? History and physical note * Event Display: History and Physical Hospital Authored Date: [id number] EKG study * Event Display: ECG 12-Lead Authored Date: Please click on pdf link to open report * Event Display: ECG 12-Lead Authored Date: Ventricular Rate: 91 BPM Atrial Rate: 91 BPM P-R Interval: 166 ms QRS Duration: 124 ms Q-T Interval: 406 ms QTC Calculation(Bazett): 499 ms P [place]: 26 degrees R [place]: -47 degrees T [place]: 61 degrees Sinus rhythm with occasional Premature ventricular complexes Left anterior fascicular block Left ventricular hypertrophy with QRS widening and repolarization abnormality Abnormal ECG Baseline artifact When compared with ECG of 22-SEP-2008 13:22, Premature ventricular complexes are now Present Left anterior fascicular block is now Present Incomplete right bundle branch block is no longer Present Confirmed by Jose Aguilera ([id number]) on 09/06/2023 1:57:44 PM [place]: Jose Aguilera Patient Care team information Care Team Personnel Name: Gisselle Gilman MD Position: S Outreach Member Role: PCP Address: Address: [address] [place] [address]- Care Team Related Persons Name: LUISITO SHEPHERD Address: [address] [address] Name: GRACIE SHEPHERD Address: [place] [place] [id number]
--- OUTSIDE RECORDS SUMMARY | 2024-01-01 06:50 | XMS_ITS | Continuity of Care Document ---
Author Organization [facility] ter Address [address] [place] [id number]- Care Team Providers Care Author'S Agent Name Role Phone Gisselle Gilman MD Primary Care Physician Encounter [facility] [place] Date(s): 10/11/23 - 10/12/[address] [address]- Discharge Disposition: A-D/C Home Attending Physician: Chris Henderson MD Admitting Physician: Chris Henderson MD Referring Physician: Not on Staff, Referring MD Allergies, Adverse Reactions, Alerts Substance Reaction [...] Exam Date Time Procedure Performing Provider Status 10/11/23 11:[address] Abd/Pelvis W/ IV Contrast Only Veronica Toure; Inna (Verified) Notes: (CT Abd/Pelvis W/ IV Contrast Only) Reason For Exam: 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 RLE feels fine has area of brusing from R upper thigh into baldder area involving penis as well; Reason: Other:; Hematoma status post TAVR 4 17; Clinical Question(s): Hemorrhage Hematoma; Order Comment: TECHNIQUE: Spiral CT through the abdomen and pelvis with IV contrast formatted in 3 planes. 100 cc of Omnipaque 300 was administered intravenously. This study was performed without oral contrast. Weight-based protocol using automatic tube modulation was used to optimize exposure parameters. COMPARISON: CT 08/29/2023. FINDINGS: Wooden Frame Builder View Findings, Lines and Tubes: None. Visualized Chest: No consolidation or volume loss. No pleural effusion. Chronic basilar fibrotic changes similar to prior. The heart is mildly enlarged. No pericardial effusion. Diaphragm: Small hiatal hernia. Liver: Normal. Gallbladder: Postcholecystectomy. Bile ducts: Unchanged extrahepatic ductal prominence without biliary calculus. Spleen: Normal. Pancreas: Fatty atrophy. Adrenal glands: Normal. Kidneys and ureters: No hydronephrosis, stones, or suspicious masses. Bladder: Normal. Reproductive organs: Unremarkable. Stomach, small bowel, and large bowel: Stomach and bowel loops are nondistended. There is no evidence for obstruction. No diverticulitis or colitis. Appendix: Normal. Peritoneum and retroperitoneum: No ascites or pneumoperitoneum. No omental or mesenteric lesions. Lymph nodes: No enlarged lymph nodes. Blood vessels: Normal. No aneurysm. No evidence of venous thrombosis. Abdominal and pelvic wall: There is a 3.2 x 2.7 x 3.0 cm hematoma overlying the right inguinal region. No evidence for active hemorrhage at time of scanning. No pseudoaneurysm. Bones: No acute abnormality. Chronic postsurgical changes of the lumbar spine. IMPRESSION: There is a 3.2 x 2.7 x 3.0 cm hematoma overlying the right inguinal region. No evidence for active hemorrhage at time of scanning. No pseudoaneurysm. No abscess or subcutaneous gas. No acute intra-abdominal pathology. Stable chronic findings as above. WSN: [id number] Ordering Physician: Chris Henderson Dictated By: Adrian Bell MD Dictated Date/Time: 10/11/23 11:59 p Reviewed By: Adrian Bell MD Signed By: Adrian Bell MD Signed Date/Time: 10/11/23 11:59 pm Transcribed By: EMA Transcribed Date/Time: 10/11/23 11:51 pm Vital Signs Most recent to oldest [Reference Range]: 1 2 Height 170 cm (10/11/23 9:13 PM) 170 cm (10/11/23 8:03 PM) Weight 78 kg (10/11/23 9:13 PM) 78 kg (10/11/23 8:03 PM) Oxygen Saturation [94-100 %] 97 % (10/11/23 11:10 PM) Pulse Rate [55-90 bpm] 71 bpm (10/11/23 11:10 PM) 78 bpm (10/11/23 8:03 PM) Body Mass Index [18.5-24.99 kg/m2] 26.99 kg/m2 *H* (10/11/23 8:03 PM) Blood Pressure [90-138/55-84 mm Hg] 176/ 76mm Hg *H* (10/11/23 11:10 PM) 180/84mm Hg *H* (10/11/23 8:03 PM) Temperature [96.8-100.4 DegF] 97.6 DegF (10/11/23 11:10 PM) 97.9 DegF (10/11/23 8:03 PM) Mode of Delivery (Oxygen) Room air (10/11/23 11:10 PM) Room air (10/11/23 8:03 PM) Blood pressure sites Arm, left (10/11/23 8:03 PM) Temperature Route Oral (10/11/23 11:10 PM) Oral (10/11/23 8:03 PM) Dry Weight 78 kg (10/11/23 9:13 PM) 78 kg (10/11/23 8:03 PM) Weight Obtained Via Standing scale (10/11/23 8:03 PM) Dry Weight Obtained Via Standing scale (10/11/23 8:03 PM) Social History Social History Type Response Smoking Status Former smoker; Tobac co user in household: No entered on: 09/12/17 Sex EKG study * Event Display: EKG Authored Date: [id number] * Event Display: ECG 12-Lead Authored Date: [id number] Please click on pdf link to open report * Event Display: ECG 12-Lead Authored Date: Ventricular Rate: 79 BPM Atrial Rate: 79 BPM P-R Interval: 196 ms QRS Duration: 114 ms Q-T Interval: 426 ms QTC Calculation(Bazett): 488 ms P Eagan: 45 degrees R Eagan: -40 degrees T Eagan: 107 degrees Normal sinus rhythm Left axis deviation Left ventricular hypertrophy with repolarization abnormality ( R in aVL , Paterson product , Romhilt-Cardoza ) Abnormal ECG When compared with ECG of 04-OCT-2023 07:01, No significant change was found Confirmed by PETERSON GARCIA ([id number]) on 10/12/2023 7:24:59 AM [place]: PETERSON GARCIA Note * Chris Henderson MD: PERFORM Event Display: Patient Education Leaflets Authored Date: [id number] Hematoma ?? [id number] Hematoma A hematoma is a collection of blood trapped outside of a blood vessel. It's what we think of as a bruise or a contusion. It's often seen under the skin as a black and blue spot on your arm or leg, ora bump on your head after an injury. It can be almost anywhere on or in your body. It can also occur in an internal organ. This can be more serious. A hematoma is caused by an injury with damage to small blood vessels. This causes blood to leak into the tissues. Blood forms a pocket under the skin that swells and looks like a purplish patch. Hematomas sometimes form under the skin from bleeding during childbirth and can be particularly serious.Another serious form of hematoma forms after a fall on the head, called a subdural hematoma. Gradually the blood in the hematoma is absorbed back into the body. The swelling and pain of the hematoma will go away. This takes from??1 to??4 weeks, depending on the size of the hematoma. The skinover the hematoma may turn bluish then brown and yellow as the blood is dissolved and absorbed. Usually, this only takes a couple of weeks but can last months. Home care ??? Limit motion of the joints near the hematoma. If the hematoma is large and painful, avoid sports and other vigorous physical activity until the swelling and pain goes away. ??? Apply anice pack over the injured area for 20 minutes every 1 to 2 hours the first day. Continue with ice packs 3 to 4 times a day for the next??2 days. To make an ice pack, put ice cubes in a plastic bag that seals at the top. Wrap the bag in a thin towel or cloth. Don???t put ice or an ice pack directly on the skin. Continue the use of ice packs to ease pain and swelling as needed. ??? Take acetaminophen for pain relief, unless you were given a different pain medicine to use.??Talk with your providerbefore using this medicine if you: o Have chronic liver or kidney disease o Have??had a stomach ulcer or??digestive tract??bleeding o Are taking blood-thinner medicines. ?? Follow-up care Follow up with your??healthcare provider,??or as advised.??If X-rays or a CT scan were done, you'llbe told if there is a change in the reading, especially if it affects treatment. ?? When to get medical advice Call your healthcare provider right away if any of the following occur: ??? Redness around the hematoma ??? Increase in pain or warmth in the hematoma ??? Increase in size of the hematoma ??? Fever of 100.4??F (38??C) or higher, or as directed by your provider ??? If the hematoma is on the arm or leg, watch for: o More swelling or pain in the extremity o Numbness or tingling or blue color of the hand or foot ?? Last Reviewed Date: 2021 ?? [id number] [employer]. All rights reserved. This information is not intended as a substitute for professional medical care. Always follow your healthcare professional's instructions. ?? Patient Care team information Care Team Personnel Name: Gisselle Gilman MD Position: S Outreach Member Role: PCP Address: Address: [address] [place] [address]- Care Team Related Persons Name: LUISITO SHEPHERD Address: [place] [address] Name: GRACIE SHEPHERD Address: [place] [address]
[2024-01-01 07:27] VITALS: BMI 27.3
[2024-01-01 07:38] VITALS: BP 143/65; PULSE 68; RESP 18; TEMP 36.6; O2SAT 96
--- NOTE | 2024-01-01 07:48 | MHC.SHP ---
Pre-Procedural Eval Section A - 24 Hr Update-Section A only Date of Service: 01/01/24 The patient is an INPATIENT: No Changes since office visit: No Cold of Flu in the past 2 weeks, No New Medical Problems, No Changes in Medication and No Patient answered all questions The patient has been examined within 24 hours of the surgical procedure. The History & Physical has been completed within 30 days and I have reviewed it.: Yes Section B - Complete if H&P > 30 days Chief Complaint: Carpal tunnel syndrome, right upper limb Allergies: Allergies Allergy/AdvReac Type Severity Reaction Status Date / Time Penicillins Allergy Severe ITCHING-SEV Verified 11/22/23 09:45 ERE piperacillin [From Zosyn] Allergy Mild JAUNDICE Verified 11/22/23 09:45 tazobactam [From Zosyn] Allergy Mild JAUNDICE Verified 11/22/23 09:45 Exam Exam Comment: For repeat carpal tunnel release on the right Plan Diagnosis/Plan: Unchanged I have reviewed the history and physical and performed a pertinent physical examination on my patient. No changes have occurred unless specified. Time Spent With Patient Time: Total time managing care of this patient today ____ minutes.
--- NOTE | 2024-01-01 07:49 | W.PM.OPN ---
Operative Note Operative Note Date of Service: 01/01/24 Narrative: Preop diagnosis: 1. Recurrent right Carpal tunnel syndrome Postop diagnosis: same Procedure: 1. Repeat right Carpal tunnel release Surgeon: Ewa Pack MD Anesthesia: local block using 1% lidocaine with epinephrine Findings: Thickened scar tissue over carpal tunnel. EBL: Less than 5 mL Specimens: None Complications: None Disposition: Brought to recovery room in stable condition Plan: Follow-up for 10-14 days for wound check and suture removal Indications: The patient is 83 years old, with recurrent right carpal tunnel syndrome that has been unresponsive to nonoperative management. The risks and benefits of operative treatment including but not limited to risk of damage to blood vessels, nerves, tendons, infection, persistent pain, persistent symptoms, or possible need for additional surgery were discussed with the patient and the patient wishes to proceed with surgery. Procedure: Once consent was obtained a local block was performed using a combination of 1% lidocaine with epinephrine. The patient was then brought back to the operating suite and placed on the operative table in supine position. The right upper extremity was prepped and draped in a standard surgical fashion. Once assured that we had a good block, a 2.0 cm longitudinal incision was made centered over the carpal tunnel and extended proximally in a zigzag fashion. The incision was made through the skin to the subcutaneous tissues using a #15 blade. Dissection was made proximally down to the volar forearm fascia. I then made a longitudinal incision through the volar forearm fascia using tenotomy scissors under direct visualization. I was then able to visualize the median nerve. While protecting the median nerve I then incised the scar tissue over the carpal tunnel using a 15. Blade and tenotomy scissors under direct visualization. There was significant thickened scar tissue over the carpal tunnel. Once satisfied with our carpal tunnel release the wound was copiously irrigated with normal saline and hemostasis was obtained with a brief period of local pressure. The skin edges were reapproximated with some 5.0 nylon suture material and a sterile dressing was applied. The patient appears to have tolerated the procedure well and with no complications. All digits were well vascularized at the conclusion of the case.
--- NOTE | 2024-01-01 07:55 | PC.NURSE ---
report given to cat wagner rn at this time
[2024-01-01 09:40] VITALS: BP 130/60; PULSE 77; RESP 16; O2SAT 99
== END 2024-01-01 09:42 | disposition home or self-care (01) ==
PROVIDERS: PCP Internal Medicine; Visit Provider Orthopaedic Surgery
PROC: (CPT 64721; principal; 2024-01-01 08:10)
DX: G56.01 Carpal tunnel syndrome, right upper limb (principal); R20.0 Anesthesia of skin; E11.9 Type 2 diabetes mellitus without complications; Z96.41 Presence of insulin pump (external) (internal); M06.09 Rheumatoid arthritis without rheumatoid factor, multiple sites; I25.10 Atherosclerotic heart disease of native coronary artery without angina pectoris; I35.0 Nonrheumatic aortic (valve) stenosis; I65.23 Occlusion and stenosis of bilateral carotid arteries; Z95.2 Presence of prosthetic heart valve; Z79.01 Long term (current) use of anticoagulants; Z79.899 Other long term (current) drug therapy; Z79.52 Long term (current) use of systemic steroids; Z96.9 Presence of functional implant, unspecified; Z88.0 Allergy status to penicillin; Z88.1 Allergy status to other antibiotic agents; Z98.890 Other specified postprocedural states; Z87.891 Personal history of nicotine dependence
CPT/HCPCS: 64721; J0171

== ENCOUNTER → 2024-01-01 06:47 | Outpatient (BNV) | payer MEDICARE, SELFPAY | PROVIDERS: PCP Internal Medicine; Visit Provider Orthopaedic Surgery | DX: G56.01 Carpal tunnel syndrome, right upper limb (principal) | CPT/HCPCS: 64721 ==

== ENCOUNTER 2024-01-17 14:47 | Outpatient (AMB) | payer MEDICARE, SELFPAY ==
--- NOTE | 2024-01-17 15:13 | MHC.OFFVIS ---
Intake Visit Reasons: PO RT repeat CTR 01/01/24 AR Intake Note: Rios is a 83 yo right hand dominant male who presents today postoperatively for right repeat CTR done 01/01/[address] Pack. Patient reports no pain today but he is still having numbness and tingling on and off. Sutures removed in office, steri strips applied. Allergies Penicillins Allergy (Severe, Verified 01/17/24 15:16) ITCHING-SEVERE piperacillin [From Zosyn] Allergy (Mild, Verified 01/17/24 15:16) JAUNDICE tazobactam [From Zosyn] Allergy (Mild, Verified 01/17/24 15:16) JAUNDICE HPI HPI PO RT repeat CTR 01/01/24 AR: Details: Patient is an 83-year-old male who presents for postop evaluation right repeat carpal tunnel release, DOS 01/01/2024. Today, the patient reports that he is feeling well, and then his pain has completely since surgery. However, the patient reports that he is still experiencing numbness and tingling in the median nerve distribution of the right hand. Patient reports no concerns with the incision site. No other acute complaints or concerns at this time. [facility] Medical History Symptomatic stenosis of left carotid artery Aortic stenosis Rheumatoid arthritis Carpal tunnel syndrome Former smoker Insulin pump in place Diabetes Elevated cholesterol CAD (coronary artery disease) HTN (hypertension) Surgical History History of left-sided carotid endarterectomy (02/15/23) Hx of carpal tunnel repair Hx of cardiac catheterization History of shoulder surgery History of cholecystectomy History of hand surgery Hx of hemorrhoidectomy Hx of lumbar discectomy H/O colonoscopy Family History Father Heart attack Heart disease Mother Pacemaker Cataracts, bilateral Sister Heart problem Heart valve replaced Arthritis Brother Heart attack Brother Rectal cancer Sister History of modified radical mastectomy of right breast Social History (Updated 01/17/24 @ 15:15 by MITCH Burciaga) Household Members: None Housing: House Are you a primary pet care associate to a significant other at home: No Do you presently have visiting nurse or other home services: No Alcohol intake: former Patient Tobacco Use Status: Former Tobacco user Tobacco use type: Cigarette Years Smoked: 5 YEARS Advance Directives Date on File: 02/07/23 service: No Current occupational status: employed Current occupation: [employer], rt handed Physical Exam Extrem Other: Patient is alert, oriented, and in no acute distress. Neuro: Median, ulnar, radial nerves motor and sensory intact and sensation is normal to the tips of all digits at this time Vascular: Cap refill brisk Pain: Patient reports no pain or tenderness to palpation throughout the right hand. ROM: Range of motion of the right hand full and intact, patient is able to make a closed fist, good finger cross Skin: Well-healing incision site over the volar aspect of the right wrist. No erythema or evidence of infection noted General: No ecchymosis, erythema, or evidence of infection. Psych: Appears grossly normal Affect normal Attitude cooperative Assessment & Plan Assessment & Plan (1) Carpal tunnel syndrome on right: Code(s): G56.01 - Carpal tunnel syndrome, right upper limb Category: Medical Plan 1. Carpal tunnel syndrome, right, status post carpal tunnel release DOS 01/01/2024 Patient appears to be recovering well postoperatively Patient is educated about the typical recovery course Patient is informed that it can take weeks to months for normal sensation to return to the median nerve distribution of the affected hand Patient understands this Patient is informed that I do not feel he needs a scheduled follow-up, as he is recovering well postoperatively and is not having any difficulties with range of motion of his right hand or concerns with the incision site Patient is amenable to this plan Patient will follow-up as needed with any acute concerns Coding Level of Care Code Global (95467) Diagnoses Carpal tunnel syndrome on right G56.01
== END 2024-01-17 15:45 | disposition home or self-care (01) ==
PROVIDERS: PCP Internal Medicine
DX: G56.01 Carpal tunnel syndrome, right upper limb (principal)
CPT/HCPCS: 99024

== ENCOUNTER → 2024-01-17 14:47 | Outpatient (BNVA) | payer MEDICARE, SELFPAY | PROVIDERS: PCP Internal Medicine; Visit Provider Orthopaedic Surgery | DX: Z47.89 Encounter for other orthopedic aftercare (principal); Z86.69 Personal history of other diseases of the nervous system and sense organs | CPT/HCPCS: 99212 ==

== ENCOUNTER 2024-01-23 09:42 | Outpatient (AMB) | payer MEDICARE, SELFPAY ==
--- NOTE | 2024-01-23 09:43 | A.OFFVIS_ITS ---
Vital Signs 01/23/24 09:50 01/23/24 09:51 Height 5 ft 7 in Weight 162 lb BMI 25.4 BP 138/62 130/68 Blood Pressure Location Rt brachial Lt brachial Position Sitting Sitting Intake Visit Reasons: 6m f/u s/p carotid US 11/27/23 Intake Note: Jose M is a 83 year old male who presents to the office today for a 6 month f/u s/p carotid US 11/27/23. Pt states he still gets some dizziness when he stands up but overall is feeling okay. Allergies Penicillins Allergy (Severe, Verified 01/23/24 09:47) ITCHING-SEVERE piperacillin [From Zosyn] Allergy (Mild, Verified 01/23/24 09:47) JAUNDICE tazobactam [From Zosyn] Allergy (Mild, Verified 01/23/24 09:47) JAUNDICE HPI HPI 6m f/u s/p carotid US 11/27/23: Details: Very pleasant 83-year-old gentleman presents for routine surveillance follow-up regarding his carotids. He has had a prior left carotid endarterectomy nearly a year prior. Reports that he is doing fairly well. He has been doing well in terms of his polymyalgia rheumatica as well. Remains quite active and is currently taking care of his 10 grandkids in 9 great grandkids which keeps him quite active. He of note is currently a diabetic and quit smoking back in 1962 after the of his 1st son. Now presents for routine carotid surveillance follow-up. In terms of his carotids he is asymptomatic. [facility] Medical History Symptomatic stenosis of left carotid artery Aortic stenosis Rheumatoid arthritis Carpal tunnel syndrome Former smoker Insulin pump in place Diabetes Elevated cholesterol CAD (coronary artery disease) HTN (hypertension) Surgical History History of left-sided carotid endarterectomy (02/15/23) Hx of carpal tunnel repair Hx of cardiac catheterization History of shoulder surgery History of cholecystectomy History of hand surgery Hx of hemorrhoidectomy Hx of lumbar discectomy H/O colonoscopy Family History Father Heart attack Heart disease Mother Pacemaker Cataracts, bilateral Sister Heart problem Heart valve replaced Arthritis Brother Heart attack Brother Rectal cancer Sister History of modified radical mastectomy of right breast Social History Household Members: None Housing: House Are you a primary personal care assistant to a significant other at home: No Do you presently have visiting nurse or other home services: No Alcohol intake: former Patient Tobacco Use Status: Former Tobacco user Tobacco use type: Cigarette Years Smoked: 5 YEARS Advance Directives Date on File: 02/07/23 service: No Current occupational status: employed Current occupation: [employer], rt handed Review of Systems Const All systems reviewed & are unremarkable except as noted in HPI and below Reports no additional complaints ENT Reports Normal hearing present Card Denies chest pain, Denies chest pain at rest, Denies chest pain with activity and Denies pedal edema Resp Denies cough GI Denies abdominal pain Musc Denies abnormal gait, Denies muscle cramps and Denies radiating pain into limb Skin/Breast Denies skin ulcer and Denies wounds Neuro Reports Normal hearing present and Denies abnormal gait Psych Reports no additional complaints Physical Exam Vital Signs: Last Vital Signs BP 130/68 01/23/24 09:51 BMI result Body Mass Index 25.4 Const General: cooperative, healthy appearing and comfortable Orientation/consciousness: oriented to person, oriented to place and oriented to time HEENT Head: Yes normal to inspection Neck Neck: Yes normal visual inspection Carotids: no bruits Chest Chest palpation & inspection: normal inspection of the chest Resp Effort & Inspection: normal respiratory effort and able to speak in complete sentences Auscultation: clear to auscultation bilaterally, no crackles, no rales, no rhonchi and no wheezes Cardio Rate: regular rate Rhythm: regular rhythm Heart sounds: S1 normal heart sound present and S2 normal heart sound present Bruits: no carotid bruits Peripheral pulses: Peripheral pulses 2+ throughout GI Inspection: Yes normal to inspection Skin Wounds: no wounds Hair: normal Neuro General: oriented to person, oriented to place and oriented to time Cranial nerves: Yes CN's II-XII intact bilaterally and Yes Normal hearing present Cognition (Neuro): normal cognition Motor exam (neuro): 5/5 motor strength present throughout Extrem Other: venous exam: No significant superficial varicosities or spider telangiectasias, minimal edema General: No clubbing, No cyanosis and No edema Psych Appearance: grossly normal Mental Status: mental status grossly normal Speech and movement: Normal speech and movement present Results Reviewed Results Reviewed: Carotid testing dated 11/27/2023 demonstrates right side 50-79% stenosis with a peak systolic of 167 and left-sided 0-49% written report and images were reviewed. I disagree with the radiologist's reading which he appears to have copied the right and left-sided findings in the main body as the velocities are identical and does not correlate with the stenosis findings. Assessment & Plan Assessment & Plan (1) Bilateral carotid artery stenosis: Comment: 02/15/2023 - left carotid endarterectomy Code(s): I65.23 - Occlusion and stenosis of bilateral carotid arteries Category: Medical Plan: In short patient has asymptomatic carotid disease. We have reviewed signs and symptoms of a stroke. We also discussed risk factor modification inclusive a healthy diet low in cholesterol. The patient will follow up with us with surveillance ultrasound of the carotids 1 year. Should there be any changes or signs or symptoms of a stroke we will be happy to see them back sooner. Thank you for allowing us to participate in this patient's care. If there are any questions or concerns please do not hesitate to contact us. Orders: Orders US carotid duplex BI 1 Year I65.23 - Occlusion and stenosis of bilateral carotid arteries Coding Level of Care Code Est Pt Level 4 (60295) Diagnoses Bilateral carotid artery stenosis I65.23
[2024-01-23 09:50] VITALS: BP 138/62; BMI 25.4
[2024-01-23 09:51] VITALS: BP 130/68
== END 2024-01-23 10:08 | disposition home or self-care (01) ==
PROVIDERS: PCP Internal Medicine; Visit Provider Surgery Vascular Surgery
DX: I65.23 Occlusion and stenosis of bilateral carotid arteries (principal)
CPT/HCPCS: 99214

== ENCOUNTER → 2024-01-23 09:42 | Outpatient (BNVA) | payer MEDICARE, SELFPAY | PROVIDERS: PCP Internal Medicine; Visit Provider Surgery Vascular Surgery | DX: I65.23 Occlusion and stenosis of bilateral carotid arteries (principal) | CPT/HCPCS: 99212 ==

== ENCOUNTER 2024-02-12 12:36 | Outpatient (REF) | payer MEDICARE, SELFPAY ==
[2024-02-12 14:34] LABS: MANUAL DIFF FLAG NO
[2024-02-12 14:43] LABS: Basophils Percent Auto 0.7 % (0-2); Eosinophils Percent Auto 0.7 % (0-4); Hematocrit 39.7 % (42.0-52.0); Hemoglobin 12.8 g/dl (14.0-18.0); Imm Gran Abs Auto 0.02 X10*3/uL (0.00-0.03); Imm Gran Pct Auto 0.4 % (0.0-0.4); Lymphocytes Absolute Auto 0.8 X10*3/uL (1.2-4.9); Lymphocytes Percent Auto 16.3 % (20-40); Mean Corpuscular HGB Conc 32.2 g/dl (31.0-36.0); Mean Corpuscular Hemoglobin 27.6 pg (27.0-33.0); Mean Corpuscular Volume 85.6 fL (80.0-98.0); Mean Platelet Volume 9.5 fL (9.4-12.4); Monocytes Absolute Auto 0.8 X10*3/uL (0.1-1.2); Monocytes Percent Auto 16.3 % (2-11); Neutrophils Percent Auto 65.6 % (45-73); Platelet Count 131 X10*3/uL (160-400); Red Blood Count 4.64 X10*6/uL (4.60-5.80); Red Cell Distribution Width 16.9 % (11.0-16.0); White Blood Count 4.6 X10*3/uL (4.8-10.8)
[2024-02-12 15:04] LABS: Alanine Aminotransferase 24 U/L (0-40); Albumin Level 3.8 g/dL (3.5-5.0); Alkaline Phosphatase 79 U/L (39-117); Anion Gap 12 (12-20); Aspartate Amino Transferase 22 U/L (5-37); Bilirubin Total 1.3 mg/dL (0.0-1.0); Blood Urea Nitrogen 17 mg/dL (9-16); C Reactive Protein < 0.04 mg/dL (< or = 0.50); Calcium 9.5 mg/dL (8.4-10.2); Carbon Dioxide 30 mmol/L (22-29); Chloride 102 mmol/L (96-108); Estimated Glomerular Filt Rate > 60; Glucose Random 212 mg/dL (60-115); Potassium 3.7 mmol/L (3.3-5.1); Sodium 140 mmol/L (135-145); Total Protein 5.6 g/dL (6.5-8.0)
[2024-02-12 15:21] LABS: Erythrocyte Sedimentation Rate 1 MM/HR (0-15)
== END 2024-02-12 12:37 | disposition home or self-care (01) ==
LOC: HO.WFDLDS 12:36
PROVIDERS: Visit Provider Student in an Organized Health Care Education/Training Program
DX: M06.9 Rheumatoid arthritis, unspecified (principal)
CPT/HCPCS: 36415; 80053; 85025; 85652; 86140

== ENCOUNTER 2024-02-17 20:28 | Emergency (ER) | payer MEDICARE, SELFPAY ==
--- NOTE | ~2024-02-17 | XR_ITS ---
EXAMINATION: XR RIBS, LEFT, WITH PA CHEST CLINICAL INFORMATION: Pain status-post fall. COMPARISON: Chest radiograph dated 06/11/2023. TECHNIQUE: 3 views of the left ribs were obtained, together with a PA view of the chest. FINDINGS: Lungs are clear. No consolidation, pneumothorax, or pleural effusion. The cardiomediastinal silhouette and pulmonary vasculature are normal. A TAVR stent is noted. Osseous structures are unremarkable. Ribs are intact. No fractures are identified. Lumbar fusion hardware is noted. An orthopedic anchors applied to the left glenoid. There is degenerative change of the left shoulder. XR/XR ribs LT min 3V w CXR1V IMPRESSION: Unremarkable examination. Electronically signed by: Barney Felder MD 02/17/2024 11:03 PM EDT
[2024-02-17 20:39] VITALS: BP 129/59; PULSE 80; RESP 16; TEMP 36.6; O2SAT 97; BMI 26.9
[2024-02-17 21:10] LABS: Alanine Aminotransferase 22 U/L (0-40); Albumin Level 3.7 g/dL (3.5-5.0); Alkaline Phosphatase 90 U/L (39-117); Anion Gap 12 (12-20); Aspartate Amino Transferase 25 U/L (5-37); Bilirubin Direct 0.4 mg/dL (0.0-0.5); Bilirubin Total 0.9 mg/dL (0.0-1.0); Blood Urea Nitrogen 16 mg/dL (9-16); Calcium 9.1 mg/dL (8.4-10.2); Carbon Dioxide 27 mmol/L (22-29); Chloride 109 mmol/L (96-108); Creatinine Clr Calc Pharmacy 60.1; Estimated Glomerular Filt Rate > 60; Glucose Random 168 mg/dL (60-115); Potassium 4.1 mmol/L (3.3-5.1); Sodium 144 mmol/L (135-145); Total Protein 5.2 g/dL (6.5-8.0)
[2024-02-17 21:24] LABS: Hematocrit 38.1 % (42.0-52.0); Hemoglobin 12.2 g/dl (14.0-18.0); Mean Corpuscular Hemoglobin 27.8 pg (27.0-33.0); Mean Corpuscular Volume 86.8 fL (80.0-98.0); Mean Platelet Volume 9.2 fL (9.4-12.4); Platelet Count 126 X10*3/uL (160-400); Red Blood Count 4.39 X10*6/uL (4.60-5.80); Red Cell Distribution Width 16.8 % (11.0-16.0); White Blood Count 7.5 X10*3/uL (4.8-10.8)
[2024-02-17 22:12] VITALS: BP 144/65; PULSE 80; RESP 18; TEMP 36.7; O2SAT 97
--- NOTE | 2024-02-18 00:41 | ED.GENADULT ---
HPI - General Adult General Chief complaint: Fall Stated complaint: fell 02/15 right side rib pain Time Seen by Provider: 02/17/24 23:45 Source: patient, RN notes reviewed and old records reviewed Mode of arrival: ambulatory Limitations: no limitations History of Present Illness ED Provider: Jeniffer HPI narrative: 83M presents with son with a chief complaint of fall. Patient admits to fall two days ago when he was connecting trailer to his tractor. States he fell on left chest. Denies head strike or loss of consciousness. States he has severe pain in left front rib area, and increased pain upon deep inspiration and movement. Denies cough, hemoptysis, brusing to the area, pain anywhere else, blood in urine, difficulty urinating or radiation of pain. Patient took oxycocdone on Monday with relief. Denies medication of any kind since. Related Data Home Medications ?Medication ?Instructions ?Recorded ?Confirmed Novolog U-100 Insulin aspart 0 units subcut (via wearable 06/01/20 08/22/23 injectr) DAILY tamsulosin 0.4 mg capsule 0.4 mg PO BEDTIME 06/24/22 08/22/23 vitamins A,C,F-rtjd-cjctsm 4,296 1 cap PO BID 06/24/22 08/22/23 mcg-226 mg-90 mg capsule (PreserVision AREDS) acetaminophen 650 mg 650 mg PO Q8H PRN Pain 09/06/22 08/22/23 tablet,extended release (Tylenol 8 Hour) citalopram 20 mg tablet 20 mg PO DAILY 09/06/22 08/22/23 cyclobenzaprine 10 mg tablet 10 mg PO DAILY 09/06/22 08/22/23 cholecalciferol (vitamin D3) 50 50 mcg PO BID 11/21/22 08/22/23 mcg (2,000 unit) capsule calcium citrate 200 mg (950 mg) 1,600 mg PO BID 12/24/22 08/22/23 tablet testosterone cypionate 200 mg/mL 60 mg IM TU 06/02/23 08/22/23 intramuscular oil atorvastatin 40 mg tablet mg PO 07/11/23 08/22/23 furosemide 20 mg tablet mg PO 08/22/23 08/22/23 Previous Rx's ?Medication ?Instructions ?Recorded aspirin 81 mg tablet,delayed 81 mg PO DAILY #90 tabs 02/10/23 release omeprazole 20 mg capsule,delayed 20 mg PO BID #180 caps 03/28/23 release polyethylene glycol 3350 17 17 g PO DAILY #510 grams 05/15/23 gram/dose oral powder (Miralax) pilocarpine HCl 5 mg tablet 5 mg PO BID #180 tabs 08/18/23 prednisone 1 mg tablet 4 mg (4 x 1 mg) PO DAILY #120 tabs 10/16/23 Actemra ACTPen 162 mg/0.9 mL 162 mg (0.9 mL) subcut Q2W #1.8 mL 11/17/23 subcutaneous pen injector (tocilizumab) docusate sodium 100 mg capsule 100 mg PO BID #60 caps 11/23/23 prednisone 10 mg tablet 10 mg PO DAILY #7 tabs 12/08/23 gabapentin 600 mg tablet 600 mg PO TID #270 tabs 01/30/24 oxycodone 5 mg tablet 5 mg PO Q6H PRN severe pain (scale 02/18/24 score 7-10) #16 tabs Allergies Allergy/AdvReac Type Severity Reaction Status Date / Time Penicillins Allergy Severe ITCHING-SEV Verified 02/17/24 20:40 ERE piperacillin [From Zosyn] Allergy Mild JAUNDICE Verified 02/17/24 20:40 tazobactam [From Zosyn] Allergy Mild JAUNDICE Verified 02/17/24 20:40 Review of Systems Constitutional: Constitutional: Reports no additional constitutional complaints ENT: Denies dizziness Cardiovascular: Cardiovascular: Reports chest pain (chest wall left) and Denies syncope Genitourinary: Genitourinary: Denies hematuria and Denies flank pain Musculoskeletal: Musculoskeletal: Reports as per HPI and Denies numbness Integumentary/Breasts: Skin/Breast: Denies new lesions and Denies unusual bruising Neurologic: Denies dizziness, Denies syncope and Denies numbness [facility] Past Medical History Medical History Symptomatic stenosis of left carotid artery Aortic stenosis Rheumatoid arthritis Carpal tunnel syndrome Former smoker Insulin pump in place Diabetes Elevated cholesterol CAD (coronary artery disease) HTN (hypertension) Surgical History History of left-sided carotid endarterectomy (02/15/23) Hx of carpal tunnel repair Hx of cardiac catheterization History of shoulder surgery History of cholecystectomy History of hand surgery Hx of hemorrhoidectomy Hx of lumbar discectomy H/O colonoscopy Family History Family History Father Heart attack Heart disease Mother Pacemaker Cataracts, bilateral Sister Heart problem Heart valve replaced Arthritis Brother Heart attack Brother Rectal cancer Sister History of modified radical mastectomy of right breast Social History Social History Household Members: None Housing: House Are you a primary acute care assistant to a significant other at home: No Do you presently have visiting nurse or other home services: No Alcohol intake: former Patient Tobacco Use Status: Former Tobacco user Tobacco use type: Cigarette Years Smoked: 5 YEARS Advance Directives: Yes Advance Directives on File: Yes Advance Directives Date on File: 02/07/23 service: No Current occupational status: employed Current occupation: [employer], rt handed Physical Exam ED Vital Signs: Vital Signs - 24 hr 02/17/24 20:39 02/17/24 22:12 02/18/24 00:56 Temperature 97.9 F 98.1 F 98.0 F Pulse Rate 80 80 72 Respiratory Rate 16 18 18 Blood Pressure 129/59 L 144/65 H 142/88 H Pulse Oximetry 97 97 97 Oxygen Delivery Method Room Air Room Air Room Air BMI result Body Mass Index 26.9 Const General: cooperative, healthy appearing, awake and acute distress (Uncomfortable, but nontoxic) mild; No no acute distress Nutritional Appearance: well nourished Orientation/consciousness: patient oriented x3 HENMT Head: Yes normocephalic and Yes atraumatic Throat: Yes posterior oropharynx normal Chest Other: Patient has tenderness in the left anterior axillary line of the level of the 8th through 10th ribs Chest palpation & inspection: normal inspection of the chest and no crepitus Resp Effort & Inspection: normal respiratory effort, able to speak in complete sentences and no audible wheezes Auscultation: clear to auscultation bilaterally Cardio Rate: regular rate Rhythm: regular rhythm GI Palpation (GI): Soft to palpation, not firm, nontender, no guarding and not rigid Skin General skin exam: no rashes or lesions noted and elasticity normal Neuro General: patient oriented x3 Cognition (Neuro): normal cognition Extrem Other: Moving all extremities well without any obvious deformities Medications Administered Discontinued Medications Generic Name Dose Route Start Last Admin Trade Name Pavelq PRN Reason Stop Dose Admin Oxycodone HCl 10 mg 02/18/24 00:43 02/18/24 00:48 Oxycodone Hcl Immed Release 5 Mg Tablet PO 02/18/24 00:44 10 mg ONCE ONE Administration Medical Decision Making Medical Decision Making [facility] Narrative: 83-year-old male presents for evaluation of left chest wall pain after a fall 2 days ago. Clinically, the patient is quite uncomfortable he is tender in the left anterior axillary line. There is no crepitus. His chest x-ray by Radiology was read as no acute fracture. When I review the images he does appear to have a mildly displaced fracture in the area of his discomfort. He does not recall ever having broken left-sided ribs in the past. I have no suspicion for flail chest, he has no pneumothorax, I do not see any indication for further/advanced imaging. We will treat the patient as if he has an acute rib fracture. I discussed all this with the patient too and he agrees with plans. Patient has no abdominal ecchymosis or flank ecchymosis, less likely to be solid organ injury such as splenic laceration. Differential Diagnosis Differential Diagnoses: The differential diagnosis associated with the presentation includes Rib fracture Rib contusion Pneumothorax less likely Flail chest less likely Lab Data [facility] Lab Attestation statement: I reviewed the patient's lab results. The patient has no leukocytosis. He has a mild anemia consistent with his baseline. His hemoglobin has been stable for the last 5 days since before his fall. There are no significant chemistry abnormalities warranting intervention 02/17/24 20:52 02/17/24 20:52 Labs: Lab Results 02/17/24 Range/Units 20:52 WBC 7.5 (4.8-10.8) X10*3/uL RBC 4.39 L (4.60-5.80) X10*6/uL Hgb 12.2 L (14.0-18.0) g/dl Hct 38.1 L (42.0-52.0) % MCV 86.8 (80.0-98.0) fL MCH 27.8 (27.0-33.0) pg MCHC 32.0 (31.0-36.0) g/dl RDW 16.8 H (11.0-16.0) % Plt Count 126 L (160-400) X10*3/uL MPV 9.2 L (9.4-12.4) fL Absolute Nucleated RBC 0.000 (0.0-0.012) X10*3/uL Nucleated RBC % (auto) 0.0 (0.0-0.2) /100WBC Sodium 144 (135-145) mmol/L Potassium 4.1 (3.3-5.1) mmol/L Chloride 109 H (96-108) mmol/L Carbon Dioxide 27 (22-29) mmol/L Anion Gap 12 (12-20) BUN 16 (9-16) mg/dL Creatinine 0.84 (0.5-1.4) mg/dL Estim Creat Clear Calc 60.1 Estimated GFR > 60 Random Glucose 168 H (60-115) mg/dL Calcium 9.1 (8.4-10.2) mg/dL Total Bilirubin 0.9 (0.0-1.0) mg/dL Direct Bilirubin 0.4 (0.0-0.5) mg/dL AST 25 (5-37) U/L ALT 22 (0-40) U/L Alkaline Phosphatase 90 (39-117) U/L Total Protein 5.2 L (6.5-8.0) g/dL Albumin 3.7 (3.5-5.0) g/dL Independent Interpretation I performed an independent interpretation of an: Plain X-Ray (I suspect a mildly displaced left anterior rib fracture) Radiology Impression Discussion of test interpretation with radiology: I have reviewed the radiologist's reading. Radiologist Impression: XR/XR ribs LT min 3V w CXR1V IMPRESSION: Unremarkable examination. Discharge Plan Discharge Clinical Impression: Rib fracture Patient Disposition: Home, Self-Care Instructions: Rib Fracture (ED) Additional Instructions: The official radiology report does not show any obvious rib fracture. Clinically you seem to have a your fracture and when I reviewed the x-ray you appear to have a mildly displaced rib fracture The treatment for a contusion or a mildly displaced rib fracture is the same and pain control with incentive spirometry Use the incentive spirometry every hour Use ibuprofen/Tylenol for pain You may use oxycodone for more severe, breakthrough pain This may make you drowsy, do not drink alcohol or drive after taking it Return to the ER if you experiencing blood in your urine, severe, intractable pain, or large bruising in your abdomen or flank Prescriptions: New oxycodone 5 mg tablet 5 mg PO Q6H PRN (Reason: severe pain (scale score 7-10)) Qty: 16 0RF Rx Instructions: Partial Fill upon patient request. No Action omeprazole 20 mg capsule,delayed release(DR/EC) 20 mg PO BID Qty: 180 10RF polyethylene glycol 3350 [Miralax] 17 gram/dose powder 17 g PO DAILY Qty: 510 0RF pilocarpine HCl 5 mg tablet 5 mg PO BID Qty: 180 3RF prednisone 1 mg tablet 4 mg PO DAILY Qty: 120 2RF Actemra ACTPen 162 mg/0.9 mL pen injector 162 mg subcut Q2W Qty: 1.8 3RF docusate sodium 100 mg capsule 100 mg PO BID Qty: 60 0RF prednisone 10 mg tablet 10 mg PO DAILY Qty: 7 0RF gabapentin 600 mg tablet 600 mg PO TID Qty: 270 0RF Novolog U-100 Insulin aspart 0 units subcut (via wearable injectr) DAILY Rx Instructions: via TANDEM insulin pump calcium citrate 200 mg (950 mg) Tablet 1,600 mg PO BID aspirin 81 mg Tablet,Delayed Release (Dr/Ec) 81 mg PO DAILY Qty: 90 0RF testosterone cypionate 200 mg/mL Oil 60 mg IM TU citalopram 20 mg tablet 20 mg PO DAILY PreserVision AREDS 14,320-226-200 srgc-ii-rmqo capsule 1 cap PO BID tamsulosin 0.4 mg capsule 0.4 mg PO BEDTIME cyclobenzaprine 10 mg tablet 10 mg PO DAILY acetaminophen [Tylenol 8 Hour] 650 mg tablet extended release 650 mg PO Q8H PRN (Reason: Pain) atorvastatin 40 mg tablet PO furosemide 20 mg tablet PO cholecalciferol (vitamin D3) 50 mcg (2,000 unit) capsule 50 mcg PO BID Interventions: ED Discharge Assessment Last Done: 02/18/24 00:56 Discharge Date/Time: 02/18/24 01:00 Print Language: Cuban
[2024-02-18] MEDS: oxyCODONE HCl Immed Release 5 MG TABLET 10 MG PO (00:48)
[2024-02-18 00:56] VITALS: BP 142/88; PULSE 72; RESP 18; TEMP 36.7; O2SAT 97
== END 2024-02-18 01:00 | disposition home or self-care (01) ==
PROVIDERS: Emergency Medicine Emergency Medical Services; Emergency Provider Internal Medicine; PCP Internal Medicine
DX: S22.31XA Fracture of one rib, right side, initial encounter for closed fracture (principal); W01.198A Fall on same level from slipping, tripping and stumbling with subsequent striking against other object, initial encounter; Y93.89 Activity, other specified; Y92.9 Unspecified place or not applicable; Y99.9 Unspecified external cause status
CPT/HCPCS: 36415; 71101; 80053; 82248; 85027; 94010; 99283

== ENCOUNTER 2024-02-26 10:29 | Outpatient (AMB) | payer MEDICARE, SELFPAY ==
[2024-02-26 10:36] VITALS: BP 130/74; PULSE 67; O2SAT 98; BMI 26.9
--- NOTE | 2024-02-26 10:36 | MHC.OFFVIS ---
Vital Signs 02/26/24 10:36 Height 5 ft 7 in Weight 171 lb 15.369 oz BMI 26.9 BP 130/74 Blood Pressure Location Lt brachial Position Sitting Pulse 67 Pulse Source Pulse Oximeter Pulse Oximetry (%) 98 Oxygen Delivery Method Room Air Intake Visit Reasons: RA Intake Note: Patient presents follow up on RA and lab review, he was last seen in the office on 11/22/2023. Allergies Penicillins Allergy (Severe, Verified 02/26/24 10:38) ITCHING-SEVERE piperacillin [From Zosyn] Allergy (Mild, Verified 02/26/24 10:38) JAUNDICE tazobactam [From Zosyn] Allergy (Mild, Verified 02/26/24 10:38) JAUNDICE Medication List - Last Reconciled 02/26/24 by Marisela Neil MD acetaminophen ER (Tylenol 8 Hour) 650 mg PO Q8H PRN Actemra ACTPen (tocilizumab) 162 mg (0.9 mL) subcut Q2W NS aspirin 81 mg PO DAILY atorvastatin mg PO calcium citrate 1,600 mg PO BID cholecalciferol (vitamin D3) 50 mcg PO BID citalopram 20 mg PO DAILY cyclobenzaprine 10 mg PO DAILY docusate sodium 100 mg PO BID furosemide mg PO gabapentin 600 mg PO TID [Novolog U-100 Insulin aspart via TANDEM insulin pump] omeprazole 20 mg PO BID oxycodone 5 mg PO Q6H PRN pilocarpine HCl 5 mg PO BID polyethylene glycol 3350 (Miralax) 17 grams PO DAILY prednisone 4 mg (4 x 1 mg) PO DAILY tamsulosin 0.4 mg PO BEDTIME testosterone cypionate 60 mg IM TU vitamins A,C,P-oaqi-lfwwwm 4,296 mcg-226 mg-90 mg (PreserVision AREDS) 1 cap PO BID HPI Comments Details: 83-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 On Actemra every other week, prednisone 4 mg daily. His main complaint remains his left knee. Significant difficulty standing up. He stated that he tripped and fell on his chest about 2 weeks ago and broken a rib. He is doing better now. He has been using incentive spirometry. Doing well otherwise Initial history: This is an 82[facility]-old [facility] past medical history including diabetes mellitus on insulin pump, dyslipidemia, CAD, PMR, rheumatoid arthritis who presents for evaluation of rheumatoid arthritis. 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 Patient stated he was diagnosed with PMR more than [address] Nichole, he stated that he was started on prednisone 20 mg which would be tapered down to 10 mg and as soon as he is on lower than 10 mg he starts flaring with diffuse joint pain. He then followed with Dr. alfaro and most recently with Gisselle Taylor. Patient has had numerous surgeries due to his rheumatoid arthritis, he states that his carpal bones are fused bilaterally, he also had right wrist surgery, he has SLAP repair surgery for his left shoulder and rotator cuff repair for his right shoulder. He also had a bursectomy for his left elbow. He was started on hydroxychloroquine a few months ago by Gisselle Taylor and he is not sure if it is helping. He also has history of osteoporosis complicated by multiple vertebral fractures in 2021 which were quite painful. He was started on Fosamax once weekly by Gisselle Taylor. About a month ago he had a flare up of diffuse joint pain that was attributed to Fosamax. Since then Fosamax had been stopped. Prednisone was increased back to 15 mg by his PCP. He states that he had a flare-up affecting his wrists, elbows, shoulders and left knee. His pain has improved but he continues to have left knee pain for the last 2-3 weeks. Continues to have chronic low back pain nonradiating. 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 [facility] Medical History Symptomatic stenosis of left carotid artery Aortic stenosis Rheumatoid arthritis Carpal tunnel syndrome Former smoker Insulin pump in place Diabetes Elevated cholesterol CAD (coronary artery disease) HTN (hypertension) Surgical History History of left-sided carotid endarterectomy (02/15/23) Hx of carpal tunnel repair Hx of cardiac catheterization History of shoulder surgery History of cholecystectomy History of hand surgery Hx of hemorrhoidectomy Hx of lumbar discectomy H/O colonoscopy Family History Father Heart attack Heart disease Mother Pacemaker Cataracts, bilateral Sister Heart problem Heart valve replaced Arthritis Brother Heart attack Brother Rectal cancer Sister History of modified radical mastectomy of right breast Social History Household Members: None Housing: House Are you a primary assisted living care manager to a significant other at home: No Do you presently have visiting nurse or other home services: No Alcohol intake: former Patient Tobacco Use Status: Former Tobacco user Tobacco use type: Cigarette Years Smoked: 5 YEARS Advance Directives Date on File: 02/07/23 service: No Current occupational status: employed Current occupation: [employer], rt handed Review of Systems Musc Reports arthralgias, Reports numbness, Reports stiffness and Reports tingling Neuro Reports numbness and Reports tingling Physical Exam Vital Signs: Last Vital Signs Pulse 67 02/26/24 10:36 BP 130/74 02/26/24 10:36 Pulse Ox 98 02/26/24 10:36 Oxygen Delivery Method Room Air 02/26/24 10:36 BMI result Body Mass Index 26.9 Const General: cooperative, healthy appearing, comfortable and no acute distress Nutritional Appearance: overweight Orientation/consciousness: patient oriented x3 Limitations: no limitations HEENT Head: Yes normocephalic and Yes atraumatic Resp Effort & Inspection: normal respiratory effort and able to speak in complete sentences Auscultation: crackles bilateral at the base Skin Other: Multiple bruises with fragile skin on arms, forearms, hands and legs (chronic) Neuro General: patient oriented x3 Extrem Other: No active synovitis today Normal range of motion of both shoulders Left knee is held in slightly flexed position Left knee pain with flexion-extension No ankle or feet swelling or tenderness Negative Tinel sign on the right Assessment & Plan Assessment & Plan (1) Rheumatoid arthritis: Comment: Seronegative initially diagnosed has PMR around 2004 Was only on prednisone until 2021 when HCQ was added with little benefit MTX added 08/2022- -11/08 not particularly effective and patient developed tender skin nodule on LT forearm Enbrel 11/08-02/08 ineffective Actemra 03/11 effective HCQ DC 11/2023 Code(s): M06.9 - Rheumatoid arthritis, unspecified Category: Medical Qualifiers: Rheumatoid arthritis location: multiple sites Rheumatoid factor presence: without rheumatoid factor Qualified Code(s): M06.09 - Rheumatoid arthritis without rheumatoid factor, multiple sites Plan: This is an 83-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 On Actemra 162 mg every other week, prednisone 4 mg daily. Doing very well overall. No active Synovitis on exam. Continue current meds Labs before next visit in 3 months (2) Olecranon bursitis, right elbow: Code(s): M70.21 - Olecranon bursitis, right elbow Category: Medical Plan: Per patient fluctuating right elbow swelling over the last 2-3 years. Patient has pain with right elbow pressure. Otherwise denies any elbow pain. In 2018 patient had recurrent left olecranon bursitis. Eventually he had a bursectomy. 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 03/2023, right olecranon bursitis was aspirated and injected with Kenalog. It showed 2600 WBCs with 100% lymphocytes. Bacterial cultures are negative, with no crystals. 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 Had been on at least 10 mg of prednisone for more than 15 years. Per patient recent multiple vertebral fractures in 2021. He follows up with endocrinology and is on testosterone and Prolia (4) Numbness of finger: Code(s): R20.0 - Anesthesia of skin Category: Medical Plan: Bilateral hands,, right hand is more symptomatic recently. Had right carpal tunnel release revision 12/2023. States that it did not help much (5) Aortic stenosis: Code(s): I35.0 - Nonrheumatic aortic (valve) stenosis Category: Medical Qualifiers: Cardiac valve disease etiology: nonrheumatic Qualified Code(s): I35.0 - Nonrheumatic aortic (valve) stenosis Plan: He is s/p TAVR. (6) Thrombocytopenia: Code(s): D69.6 - Thrombocytopenia, unspecified Category: Medical Plan: Fluctuating Will monitor periodically (7) Tear of meniscus of left knee: Code(s): S83.207A - Unspecified tear of unspecified meniscus, current injury, left knee, initial encounter Category: Medical Qualifiers: Tear current or old: current Encounter type: subsequent encounter Meniscus of knee: unspecified Meniscus tear of knee type: unspecified type Qualified Code(s): S83.207D - Unspecified tear of unspecified meniscus, current injury, left knee, subsequent encounter Plan: Was evaluated by Orthopedics and received a steroid injection 10/2023 which gave relief for 1-2 weeks. I think his symptoms are rather consistent with knee osteoarthritis. At this time patient failed cortisone injections. He is interested in gel injections. We will arrange for Euflexxa injections Plan I spent 45 minutes reviewing patient's chart, evaluating patient, ordering diagnostic workup, counseling patient and documenting in the chart Orders: Orders Comprehensive Met. Panel 3 Months M06.09 - Rheumatoid arthritis without rheumatoid factor, multiple sites Complete Blood Count Auto Diff 3 Months M06.09 - Rheumatoid arthritis without rheumatoid factor, multiple sites C Reactive Protein 3 Months M06.09 - Rheumatoid arthritis without rheumatoid factor, multiple sites Erythrocyte Sedimentation Rate 3 Months M06.09 - Rheumatoid arthritis without rheumatoid factor, multiple sites Medications: Discontinued prednisone Discontinued Reason: Patient Completed Course 10 mg PO DAILY 7 tabs 0RF Coding Level of Care Code Est Pt Level 5 (84578) Complex EM visit Add On G2211 Diagnoses Rheumatoid arthritis of multiple sites with negative rheumatoid factor M06.09 Rheumatoid arthritis location: multiple sites Rheumatoid factor presence: without rheumatoid factor Olecranon bursitis, right elbow M70.21 Osteoporosis with pathological fracture of thoracic vertebra M80.08XA Numbness of finger R20.0 Nonrheumatic aortic valve stenosis I35.0 Cardiac valve disease etiology: nonrheumatic Thrombocytopenia D69.6 Tear of meniscus of left knee as current injury, unspecified meniscus, unspecified tear type, subsequent encounter S83.207D Tear current or old: current Encounter type: subsequent encounter Meniscus of knee: unspecified Meniscus tear of knee type: unspecified type
== END 2024-02-26 11:05 | disposition home or self-care (01) ==
PROVIDERS: PCP Internal Medicine; Visit Provider Student in an Organized Health Care Education/Training Program
DX: M06.09 Rheumatoid arthritis without rheumatoid factor, multiple sites (principal); M70.21 Olecranon bursitis, right elbow; M80.08XA Age-related osteoporosis with current pathological fracture, vertebra(e), initial encounter for fracture; R20.0 Anesthesia of skin; I35.0 Nonrheumatic aortic (valve) stenosis; D69.6 Thrombocytopenia, unspecified; S83.207D Unspecified tear of unspecified meniscus, current injury, left knee, subsequent encounter
CPT/HCPCS: 99215; G2211

== ENCOUNTER → 2024-02-26 10:29 | Outpatient (BNVA) | payer MEDICARE, SELFPAY | PROVIDERS: PCP Internal Medicine; Visit Provider Student in an Organized Health Care Education/Training Program | DX: M06.09 Rheumatoid arthritis without rheumatoid factor, multiple sites (principal); M70.21 Olecranon bursitis, right elbow; R20.0 Anesthesia of skin; I35.0 Nonrheumatic aortic (valve) stenosis; D69.6 Thrombocytopenia, unspecified; M80.08XD Age-related osteoporosis with current pathological fracture, vertebra(e), subsequent encounter for fracture with routine healing; S83.207D Unspecified tear of unspecified meniscus, current injury, left knee, subsequent encounter; X58.XXXD Exposure to other specified factors, subsequent encounter | CPT/HCPCS: 99212 ==

== ENCOUNTER 2024-03-07 13:16 | Outpatient (AMB) | payer MEDICARE, SELFPAY ==
--- NOTE | 2024-03-07 13:23 | MHC.OFFVIS ---
Vital Signs 03/07/24 13:30 Height 5 ft 7 in Weight 164 lb 0.383 oz BMI 25.7 BP 128/74 Blood Pressure Location Lt brachial Position Sitting Pulse 95 Pulse Source Pulse Oximeter Pulse Oximetry (%) 95 Oxygen Delivery Method Room Air Intake Visit Reasons: Lt knee pain/euflexxa inj Intake Note: Patient presents for left knee pain and Euflexxa injection. Allergies Penicillins Allergy (Severe, Verified 03/07/24 13:27) ITCHING-SEVERE piperacillin [From Zosyn] Allergy (Mild, Verified 03/07/24 13:27) JAUNDICE tazobactam [From Zosyn] Allergy (Mild, Verified 03/07/24 13:27) JAUNDICE HPI Comments Details: Patient presents for his 1st of 3 Euflexxa injections [facility] Medical History Symptomatic stenosis of left carotid artery Aortic stenosis Rheumatoid arthritis Carpal tunnel syndrome Former smoker Insulin pump in place Diabetes Elevated cholesterol CAD (coronary artery disease) HTN (hypertension) Surgical History History of left-sided carotid endarterectomy (02/15/23) Hx of carpal tunnel repair Hx of cardiac catheterization History of shoulder surgery History of cholecystectomy History of hand surgery Hx of hemorrhoidectomy Hx of lumbar discectomy H/O colonoscopy Family History Father Heart attack Heart disease Mother Pacemaker Cataracts, bilateral Sister Heart problem Heart valve replaced Arthritis Brother Heart attack Brother Rectal cancer Sister History of modified radical mastectomy of right breast Social History Household Members: None Housing: House Are you a primary child care specialist to a significant other at home: No Do you presently have visiting nurse or other home services: No Alcohol intake: former Patient Tobacco Use Status: Former Tobacco user Tobacco use type: Cigarette Years Smoked: 5 YEARS Advance Directives Date on File: 02/07/23 service: No Current occupational status: employed Current occupation: [employer], rt handed Review of Systems Musc Reports arthralgias Physical Exam Vital Signs: Last Vital Signs Pulse 95 03/07/24 13:30 BP 128/74 03/07/24 13:30 Pulse Ox 95 03/07/24 13:30 Oxygen Delivery Method Room Air 03/07/24 13:30 BMI result Body Mass Index 25.7 Office Procedures Joint Injection/Aspiration Joint Injection/Aspiration Primary Site: left knee Prep: site was prepped using sterile technique and ethochloride spray was applied Approach Used: medial parapatellar Coding Details: With the patient's consent the left knee was prepped with ChloraPrep and alcohol. The skin was anesthetized with 2 cc of 1% lidocaine. The knee was then injected with 20 mg of Euflexxa. The patient tolerated the procedure with no immediate adverse effects. 81925 - Large joint Procedure code (CPT) selection complete Office Meds Euflexxa 10 mg/mL (mw 2.4-3.6 million) intra-articular syringe Performing Provider: Marisela Neil MD Performing Location: [facility] Administered by: Marisela Neil MD on 03/07/24 14:03 Dose Route Admin Location Dispensed Lot Number Expiration Date [facility] [employer] 20 mg intra-articular 2 mL [id number] 04/13/25 [address]-5 [facility] Assessment & Plan Assessment & Plan (1) Osteoarthritis of left knee: Code(s): M17.12 - Unilateral primary osteoarthritis, left knee Category: Medical Qualifiers: Osteoarthritis type: primary Qualified Code(s): M17.12 - Unilateral primary osteoarthritis, left knee Plan: Patient presents for his 1st of 3 Euflexxa injection series. Injection tolerated well. Follow-up next week for 2nd injection Orders: Orders AMB Joint Injection/Aspiration Today M17.12 - Unilateral primary osteoarthritis, left knee Medications: New Euflexxa (sodium hyaluronate (viscosup)) 20 mg (2 mL) intra-articular ONCE 2 mL 0RF NS M17.12 - Unilateral primary osteoarthritis, left knee Coding Level of Care Code Procedure Only Diagnoses Primary osteoarthritis of left knee M17.12 Osteoarthritis type: primary CPT Codes Coding - 55354 Large joint: 18060 - Large joint ([id number])
[2024-03-07 13:30] VITALS: BP 128/74; PULSE 95; O2SAT 95; BMI 25.7
== END 2024-03-07 14:07 | disposition home or self-care (01) ==
PROVIDERS: PCP Internal Medicine; Visit Provider Student in an Organized Health Care Education/Training Program
DX: M17.12 Unilateral primary osteoarthritis, left knee (principal)
CPT/HCPCS: 20610

== ENCOUNTER → 2024-03-07 13:16 | Outpatient (BNVA) | payer MEDICARE, SELFPAY | PROVIDERS: PCP Internal Medicine; Visit Provider Student in an Organized Health Care Education/Training Program | DX: M17.12 Unilateral primary osteoarthritis, left knee (principal) | CPT/HCPCS: 20610; J7323 ==

== ENCOUNTER 2024-03-14 14:39 | Outpatient (AMB) | payer MEDICARE, SELFPAY ==
--- NOTE | 2024-03-14 14:45 | A.OFFVIS_ITS ---
Vital Signs 03/14/24 14:51 Height 5 ft 7 in Weight 172 lb 9.951 oz BMI 27.0 BP 124/74 Blood Pressure Location Rt brachial Position Sitting Pulse 59 Pulse Source Pulse Oximeter Pulse Oximetry (%) 98 Oxygen Delivery Method Room Air Intake Visit Reasons: lt knee pain/euflexxa inj Intake Note: Patient presents for left knee pain/Euflexxa injection. Allergies Penicillins Allergy (Severe, Verified 03/14/24 14:50) ITCHING-SEVERE piperacillin [From Zosyn] Allergy (Mild, Verified 03/14/24 14:50) JAUNDICE tazobactam [From Zosyn] Allergy (Mild, Verified 03/14/24 14:50) JAUNDICE Medication List - Last Reconciled 03/14/24 by Marisela Neil MD acetaminophen ER (Tylenol 8 Hour) 650 mg PO Q8H PRN Actemra ACTPen (tocilizumab) 162 mg (0.9 mL) subcut Q2W NS aspirin 81 mg PO DAILY atorvastatin mg PO calcium citrate 1,600 mg PO BID cholecalciferol (vitamin D3) 50 mcg PO BID citalopram 20 mg PO DAILY cyclobenzaprine 10 mg PO DAILY docusate sodium 100 mg PO BID furosemide mg PO gabapentin 600 mg PO TID [Novolog U-100 Insulin aspart via TANDEM insulin pump] omeprazole 20 mg PO BID oxycodone 5 mg PO Q6H PRN pilocarpine HCl 5 mg PO BID polyethylene glycol 3350 (Miralax) 17 grams PO DAILY prednisone 4 mg (4 x 1 mg) PO DAILY tamsulosin 0.4 mg PO BEDTIME testosterone cypionate 60 mg IM TU vitamins A,C,L-hsdp-fmviba 4,296 mcg-226 mg-90 mg (PreserVision AREDS) 1 cap PO BID HPI Comments Details: 84-year-old male with seronegative RA returns for follow-up. He is also here for a 2nd Euflexxa injection for his left knee. He states that he has been having a flare-up affecting multiple joints. Has been having left wrist swelling as well as swelling of his left hand fingers, he also has bilateral shoulder pain. He has morning stiffness of his back that takes a long time to improve. He remains on Actemra 162 mg every other week and prednisone 4 mg tanvir y. [facility] Medical History Symptomatic stenosis of left carotid artery Aortic stenosis Rheumatoid arthritis Carpal tunnel syndrome Former smoker Insulin pump in place Diabetes Elevated cholesterol CAD (coronary artery disease) HTN (hypertension) Surgical History History of left-sided carotid endarterectomy (02/15/23) Hx of carpal tunnel repair Hx of cardiac catheterization History of shoulder surgery History of cholecystectomy History of hand surgery Hx of hemorrhoidectomy Hx of lumbar discectomy H/O colonoscopy Family History Father Heart attack Heart disease Mother Pacemaker Cataracts, bilateral Sister Heart problem Heart valve replaced Arthritis Brother Heart attack Brother Rectal cancer Sister History of modified radical mastectomy of right breast Social History Household Members: None Housing: House Are you a primary health care sanitary technician to a significant other at home: No Do you presently have visiting nurse or other home services: No Alcohol intake: former Patient Tobacco Use Status: Former Tobacco user Tobacco use type: Cigarette Years Smoked: 5 YEARS Advance Directives Date on File: 02/07/23 service: No Current occupational status: employed Current occupation: [employer], rt handed Review of Systems Musc Reports back pain, Reports arthralgias, Reports joint swelling, Reports limited range of motion and Reports stiffness Physical Exam Vital Signs: Last Vital Signs Pulse 59 03/14/24 14:51 BP 124/74 03/14/24 14:51 Pulse Ox 98 03/14/24 14:51 Oxygen Delivery Method Room Air 03/14/24 14:51 BMI result Body Mass Index 27.0 Const General: cooperative, healthy appearing, comfortable and no acute distress Nutritional Appearance: overweight Orientation/consciousness: patient oriented x3 Limitations: no limitations HEENT Head: Yes normocephalic and Yes atraumatic Resp Effort & Inspection: normal respiratory effort and able to speak in complete sen tences Auscultation: crackles bilateral at the base Skin Other: Multiple bruises with fragile skin on arms, forearms, hands and legs (chronic) Neuro General: patient oriented x3 Extrem Other: Left wrist swelling and tenderness Multiple swollen fingers left hand Normal range of motion of both shoulders Left knee is held in slightly flexed position Left knee pain with flexion-extension No ankle or feet swelling or tenderness Negative Tinel sign on the right Office Procedures Joint Injection/Aspiration Joint Injection/Aspiration Details: Left wrist Prep: site was prepped using sterile technique Injected: 20 mg of and Kenalog Approach Used: other Procedure: The patient tolerated the procedure well Coding Details: With patient's consent. The area over the dorsum of the left wrist was prepped with ChloraPrep then using a 25 gauge needle 20 mg of Kenalog mixed with 0.1 cc of 1% lidocaine was injected into the wrist joint space. The patient tolerated the procedure well with no immediate adverse events - Medium joint Procedure code (CPT) selection complete Joint Injection/Aspiration Joint Injection/Aspiration Primary Site: left knee Prep: site was prepped using sterile technique Approach Used: medial parapatellar Procedure: The patient tolerated the procedure well Coding Details: With the patient's consent the left knee was prepped with ChloraPrep and alcohol. The skin was anesthetized with 2 cc of 1% lidocaine. The knee was then injected with 20 mg of Euflexxa. The patient tolerated the procedure with no immediate adverse effects. - Large joint Procedure code (CPT) selection complete Office Meds Euflexxa 10 mg/mL (mw 2.4-3.6 million) intra-articular syringe Performing Provider: Marisela Neil MD Performing Location: [facility] [place] [facility]ology Administered by: Marisela Neil MD on 03/14/24 15:54 Dose Route Admin Location Dispensed Lot Number Expiration Date [employer] 20 mg intra-articular LT knee 2 mL [id number] 02/20/25 [address]-9 [facility] Assessment & Plan Assessment & Plan (1) Rheumatoid arthritis: Comment: Seronegative initially diagnosed has PMR around 2004 Was only on prednisone until 2021 when HCQ was added with little benefit MTX added 08/2022- -11/08 not particularly effective and patient developed tender skin nodule on LT forearm Enbrel 11/08-02/08 ineffective Actemra 03/11 effective HCQ DC 11/2023 Code(s): M06.9 - Rheumatoid arthritis, unspecified Category: Medical Qualifiers: Rheumatoid arthritis location: multiple sites Rheumatoid factor presence: without rheumatoid factor Qualified Code(s): M06.09 - Rheumatoid arthritis without rheumatoid factor, multiple sites Plan: This is an 83-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 On Actemra 162 mg every other week, prednisone 4 mg daily. Today he has active synovitis affecting his left wrist and left hand fingers. With patient's consent, left wrist was injected with Kenalog. If no improvement and patient continued to have flare-ups, can consider adding leflunomide Continue current meds Labs before next visit in 3 months (2) Olecranon bursitis, right elbow: Code(s): M70.21 - Olecranon bursitis, right elbow Category: Medical Plan: Per patient fluctuating right elbow swelling over the last 2-3 years. Patient has pain with right elbow pressure. Otherwise denies any elbow pain. In 2018 patient had recurrent left olecranon bursitis. Eventually he had a bursectomy. 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 03/2023, right olecranon bursitis was aspirated and injected with Kenalog. It showed 2600 WBCs with 100% lymphocytes. Bacterial cultures are negative, with no crystals. 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 Had been on at least 10 mg of p rednisone for more than 15 years. Per patient recent multiple vertebral fractures in 2021. He follows up with endocrinology and is on testosterone and Prolia (4) Numbness of finger: Code(s): R20.0 - Anesthesia of skin Category: Medical Plan: Bilateral hands,, right hand is more symptomatic recently. Had right carpal tunnel release revision 12/2023. States that it did not help much (5) Aortic stenosis: Code(s): I35.0 - Nonrheumatic aortic (valve) stenosis Category: Medical Qualifiers: Cardiac valve disease etiology: nonrheumatic Qualified Code(s): I35.0 - Nonrheumatic aortic (valve) stenosis Plan: He is s/p TAVR. (6) Thrombocytopenia: Code(s): D69.6 - Thrombocytopenia, unspecified Category: Medical Plan: Fluctuating Will monitor periodically (7) Tear of meniscus of left knee: Code(s): S83.207A - Unspecified tear of unspecified meniscus, current injury, left knee, initial encounter Category: Medical Qualifiers: Tear current or old: current Encounter type: subsequent encounter Meniscus of knee: unspecified Meniscus tear of knee type: unspecified type Qualified Code(s): S83.207D - Unspecified tear of unspecified meniscus, current injury, left knee, subsequent encounter Plan: Was evaluated by Orthopedics and received a steroid injection 10/2023 which gave relief for 1-2 weeks. I think his symptoms are rather consistent with knee osteoarthritis. Patient failed cortisone injections. Today he received his 2nd of 3 scheduled Euflexxa injections (8) Lumbar degenerative disc disease: Code(s): M51.36 - Other intervertebral disc degeneration, lumbar region Category: Medical Plan: Daily symptoms of back pain and stiffness. History of L-spine surgery 30 years ago. States that he has had injections in his spine a few years ago that were not helpful. Advised patient to return back to his spine specialists Plan I spent 45 minutes reviewing patient's chart, evaluating patient, ordering diagnostic workup, counseling patient and documenting in the chart Orders: Orders AMB Joint Injection/Aspiration Today M06.09 - Rheumatoid arthritis without rheumatoid factor, multiple sites AMB Joint Injection/Aspiration Today M17.12 - Unilateral primary osteoarthritis, left knee Coding Level of Care Code Est Pt Level 5 (73899) Complex EM visit Add On G2211 Diagnoses Rheumatoid arthritis of multiple sites with negative rheumatoid factor M06.09 Rheumatoid arthritis location: multiple sites Rheumatoid factor presence: without rheumatoid factor Olecranon bursitis, right elbow M70.21 Osteoporosis with pathological fracture of thoracic vertebra M80.08XA Numbness of finger R20.0 Nonrheumatic aortic valve stenosis I35.0 Cardiac valve disease etiology: nonrheumatic Thrombocytopenia D69.6 Tear of meniscus of left knee as current injury, unspecified meniscus, unspecified tear type, subsequent encounter S83.207D Tear current or old: current Encounter type: subsequent encounter Meniscus of knee: unspecified Meniscus tear of knee type: unspecified type Lumbar degenerative disc disease M51.36 CPT Codes Coding - 60820 Medium joint: 19107 - Medium joint ([id number]) Coding - 28563 Large joint: 87177 - Large joint ([id number])
[2024-03-14 14:51] VITALS: BP 124/74; PULSE 59; O2SAT 98; BMI 27.0
== END 2024-03-14 15:43 | disposition home or self-care (01) ==
PROVIDERS: PCP Internal Medicine; Visit Provider Student in an Organized Health Care Education/Training Program
DX: M06.09 Rheumatoid arthritis without rheumatoid factor, multiple sites (principal); M70.21 Olecranon bursitis, right elbow; M80.08XA Age-related osteoporosis with current pathological fracture, vertebra(e), initial encounter for fracture; R20.0 Anesthesia of skin; I35.0 Nonrheumatic aortic (valve) stenosis; D69.6 Thrombocytopenia, unspecified; S83.207D Unspecified tear of unspecified meniscus, current injury, left knee, subsequent encounter; M51.36 Other intervertebral disc degeneration, lumbar region; M17.12 Unilateral primary osteoarthritis, left knee
CPT/HCPCS: 20605; 20610; 99215

== ENCOUNTER → 2024-03-14 14:39 | Outpatient (BNVA) | payer MEDICARE, SELFPAY | PROVIDERS: PCP Internal Medicine; Visit Provider Student in an Organized Health Care Education/Training Program | DX: M17.12 Unilateral primary osteoarthritis, left knee (principal); M06.09 Rheumatoid arthritis without rheumatoid factor, multiple sites; M25.512 Pain in left shoulder; M25.511 Pain in right shoulder; M25.432 Effusion, left wrist; M25.442 Effusion, left hand; M51.36 Other intervertebral disc degeneration, lumbar region; M70.21 Olecranon bursitis, right elbow; R20.0 Anesthesia of skin; M80.08XD Age-related osteoporosis with current pathological fracture, vertebra(e), subsequent encounter for fracture with routine healing; S83.207D Unspecified tear of unspecified meniscus, current injury, left knee, subsequent encounter; X58.XXXD Exposure to other specified factors, subsequent encounter | CPT/HCPCS: 20605; 20610; 99212; J7323 ==

== ENCOUNTER 2024-03-21 14:17 | Outpatient (AMB) | payer MEDICARE, SELFPAY ==
--- NOTE | 2024-03-21 14:27 | A.OFFVIS_ITS ---
Vital Signs 03/21/24 14:32 Height 5 ft 7 in Weight 170 lb 13.732 oz BMI 26.8 BP 116/64 Blood Pressure Location Lt brachial Position Sitting Pulse 86 Pulse Source Pulse Oximeter Pulse Oximetry (%) 95 Oxygen Delivery Method Room Air Intake Visit Reasons: Lt Knee pain/Euflexxa inj Intake Note: Patient presents for Lt knee pain and Euflexxa injection. Allergies Penicillins Allergy (Severe, Verified 03/21/24 14:31) ITCHING-SEVERE piperacillin [From Zosyn] Allergy (Mild, Verified 03/21/24 14:31) JAUNDICE tazobactam [From Zosyn] Allergy (Mild, Verified 03/21/24 14:31) JAUNDICE Medication List - Last Reconciled 03/21/24 by Marisela Neil MD acetaminophen ER (Tylenol 8 Hour) 650 mg PO Q8H PRN Actemra ACTPen (tocilizumab) 162 mg (0.9 mL) subcut Q2W NS aspirin 81 mg PO DAILY atorvastatin mg PO calcium citrate 1,600 mg PO BID cholecalciferol (vitamin D3) 50 mcg PO BID citalopram 20 mg PO DAILY cyclobenzaprine 10 mg PO DAILY docusate sodium 100 mg PO BID furosemide mg PO gabapentin 600 mg PO TID [Novolog U-100 Insulin aspart via TANDEM insulin pump] omeprazole 20 mg PO BID oxycodone 5 mg PO Q6H PRN pilocarpine HCl 5 mg PO BID polyethylene glycol 3350 (Miralax) 17 grams PO DAILY prednisone 4 mg (4 x 1 mg) PO DAILY tamsulosin 0.4 mg PO BEDTIME testosterone cypionate 60 mg IM TU vitamins A,C,E-xogs-nzqvzf 4,296 mcg-226 mg-90 mg (PreserVision AREDS) 1 cap PO BID HPI Comments Details: 84-year-old male with seronegative RA returns for follow-up. He is also here for his 3rd Euflexxa injection for his left knee. He states that he has been having a flare-up affecting multiple joints. Continues to have generalized morning stiffness lasting 1 hour. [facility] Medical History Symptomatic stenosis of left carotid artery Aortic stenosis Rheumatoid arthritis Carpal tunnel syndrome Former smoker Insulin pump in place Diabetes Elevated cholesterol CAD (coronary artery disease) HTN (hypertension) Surgical History History of left-sided carotid endarterectomy (02/15/23) Hx of carpal tunnel repair Hx of cardiac catheterization History of shoulder surgery History of cholecystectomy History of hand surgery Hx of hemorrhoidectomy Hx of lumbar discectomy H/O colonoscopy Family History Father Heart attack Heart disease Mother Pacemaker Cataracts, bilateral Sister Heart problem Heart valve replaced Arthritis Brother Heart attack Brother Rectal cancer Sister History of modified radical mastectomy of right breast Social History Household Members: None Housing: House Are you a primary home care specialist to a significant other at home: No Do you presently have visiting nurse or other home services: No Alcohol intake: former Patient Tobacco Use Status: Former Tobacco user Tobacco use type: Cigarette Years Smoked: 5 YEARS Advance Directives Date on File: 02/07/23 service: No Current occupational status: employed Current occupation: [employer], rt handed Review of Systems Musc Reports back pain, Reports arthralgias, Reports joint swelling, Reports limited range of motion and Reports stiffness Physical Exam Vital Signs: Last Vital Signs Pulse 86 03/21/24 14:32 BP 116/64 03/21/24 14:32 Pulse Ox 95 03/21/24 14:32 Oxygen Delivery Method Room Air 03/21/24 14:32 BMI result Body Mass Index 26.8 Const General: cooperative, healthy appearing, comfortable and no acute distress Nutritional Appearance: overweight Orientation/consciousness: patient oriented x3 Limitations: no limitations HEENT Head: Yes normocephalic and Yes atraumatic Resp Effort & Inspection: normal respiratory effort and able to speak in complete sentences Auscultation: crackles bilateral at the base Skin Other: Multiple bruises with fragile skin on arms, forearms, hands and legs (chronic) Neuro General: patient oriented x3 Extrem Other: Mild left wrist swelling tenderness Multiple swollen fingers left hand Normal range of motion of both shoulders Left knee is held in slightly flexed position Left knee pain with flexion-extension No ankle or feet swelling or tenderness Negative Tinel sign on the right Office Procedures Joint Injection/Aspiration Joint Injection/Aspiration Primary Site: left knee Prep: site was prepped using sterile technique and ethochloride spray was applied Approach Used: medial parapatellar Procedure: The patient tolerated the procedure well Coding Details: With the patient's consent the left knee was prepped with ChloraPrep and alcohol. The skin was anesthetized with 2 cc of 1% lidocaine. The knee was then injected with 20 mg of Euflexxa. The patient tolerated the procedure with no immediate adverse effects. 42933 - Large joint Procedure code (CPT) selection complete Office Meds Euflexxa 10 mg/mL (mw 2.4-3.6 million) intra-articular syringe Performing Provider: Marisela Neil MD Performing Location[place] [facility] [place] Administered by: Marisela Neil MD on 03/21/24 15:17 Dose Route Admin Location Dispensed Lot Number Expiration Date [facility] [employer] 20 mg intra-articular LT knee 2 mL [id number] 02/20/25 [address]-7 [facility] Assessment & Plan Assessment & Plan (1) Rheumatoid arthritis: Comment: Seronegative initially diagnosed has PMR around 2004 Was only on prednisone until 2021 when HCQ was added with little benefit MTX added 08/2022- -11/08 not particularly effective and patient developed tender skin nodule on LT forearm Enbrel 11/08-02/08 ineffective Actemra 03/11 effective HCQ DC 11/2023 Code(s): M06.9 - Rheumatoid arthritis, unspecified Category: Medical Qualifiers: Rheumatoid arthritis location: multiple sites Rheumatoid factor presen ce: without rheumatoid factor Qualified Code(s): M06.09 - Rheumatoid arthritis without rheumatoid factor, multiple sites Plan: This is an 84-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 On Actemra 162 mg every other week, prednisone 4 mg daily. Today he has active synovitis affecting his left wrist and left hand fingers. Continues to have generalized morning stiffness lasting 1 hour. His RA remains not fully controlled. We will need to add DMARDs. Discussed risks and benefits of leflunomide. Patient agreed to proceed. Start leflunomide 10 mg daily for 2 weeks then increase to 20 mg daily Continue Actemra Labs before next visit in one-month (2) Olecranon bursitis, right elbow: Code(s): M70.21 - Olecranon bursitis, right elbow Category: Medical Plan: Per patient fluctuating right elbow swelling over the last 2-3 years. Patient has pain with right elbow pressure. Otherwise denies any elbow pain. In 2019 patient had recurrent left olecranon bursitis. Eventually he had a bursectomy. 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 03/2023, right olecranon bursitis was aspirated and injected with Kenalog. It showed 2600 WBCs with 100% lymphocytes. Bacterial cultures are negative, with no crystals. 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 Had been on at least 10 mg of prednisone for more than 15 years. Per patient recent multiple vertebral fractures in 2021. He follows up with endocrinology and is on testosterone and Prolia (4) Numbness of finger: Code(s): R20.0 - Anesthesia of skin Category: Medical Plan: Bilateral hands,, right hand is more symptomatic recently. Had right carpal tunnel release revision 12/2023. States that it did not help much (5) Aortic stenosis: Code(s): I35.0 - Nonrheumatic aortic (valve) stenosis Category: Medical Qualifiers: Cardiac valve disease etiology: nonrheumatic Qualified Code(s): I35.0 - Nonrheumatic aortic (valve) stenosis Plan: He is s/p TAVR. (6) Thrombocytopenia: Code(s): D69.6 - Thrombocytopenia, unspecified Category: Medical Plan: Fluctuating Will monitor periodically (7) Tear of meniscus of left knee: Code(s): S83.207A - Unspecified tear of unspecified meniscus, current injury, left knee, initial encounter Category: Medical Qualifiers: Tear current or old: current Encounter type: subsequent encounter Meniscus of knee: unspecified Meniscus tear of knee type: unspecified type Qualified Code(s): S83.207D - Unspecified tear of unspecified meniscus, current injury, left knee, subsequent encounter Plan: Was evaluated by Orthopedics and received a steroid injection 10/2023 which gave relief for 1-2 weeks. I think his symptoms are rather consistent with knee osteoarthritis. Patient failed cortisone injections. Today he received his 3rd scheduled Euflexxa injections. Re-evaluate in 1 month. If there is improvement, we will consider doing the right knee (8) Lumbar degenerative disc disease: Code(s): M51.36 - Other intervertebral disc degeneration, lumbar region Category: Medical Plan: Daily symptoms of back pain and stiffness. History of L-spine surgery 30 years ago. States that he has had injections in his spine a few years ago that were not helpful. Advised patient to return back to his spine specialists Plan I spent 45 minutes reviewing patient's chart, evaluating patient, ordering diagnostic workup, counseling patient and documenting in the chart Orders: Orders AMB Joint Injection/Aspiration Today M17.12 - Unilateral primary osteoarthritis, left knee Complete Blood Count Auto Diff 1 Month M06.09 - Rheumatoid arthritis without rheumatoid factor, multiple sites Comprehensive Met. Panel 1 Month M06.09 - Rheumatoid arthritis without rheumatoid factor, multiple sites C Reactive Protein 1 Month M06.09 - Rheumatoid arthritis without rheumatoid factor, multiple sites Erythrocyte Sedimentation Rate 1 Month M06.09 - Rheumatoid arthritis without rheumatoid factor, multiple sites Medications: New prednisone 20 mg PO DAILY 5 days 5 tabs 0RF leflunomide Take 1 tab daily for 2 weeks then stay on 2 tabs daily 60 tabs 0RF Coding Level of Care Code Est Pt Level 5 (22448) Complex EM visit Add On G2211 Diagnoses Rheumatoid arthritis of multiple sites with negative rheumatoid factor M06.09 Rheumatoid arthritis location: multiple sites Rheumatoid factor presence: without rheumatoid factor Olecranon bursitis, right elbow M70.21 Osteoporosis with pathological fracture of thoracic vertebra M80.08XA Numbness of finger R20.0 Nonrheumatic aortic valve stenosis I35.0 Cardiac valve disease etiology: nonrheumatic Thrombocytopenia D69.6 Tear of meniscus of left knee as current injury, unspecified meniscus, unspecified tear type, subsequent encounter S83.207D Tear current or old: current Encounter type: subsequent encounter Meniscus of knee: unspecified Meniscus tear of knee type: unspecified type Lumbar degenerative disc disease M51.36 CPT Codes Coding - 28027 Large joint: 66762 - Large joint ([id number])
[2024-03-21 14:32] VITALS: BP 116/64; PULSE 86; O2SAT 95; BMI 26.8
== END 2024-03-21 15:15 | disposition home or self-care (01) ==
PROVIDERS: PCP Internal Medicine; Visit Provider Student in an Organized Health Care Education/Training Program
DX: M06.09 Rheumatoid arthritis without rheumatoid factor, multiple sites (principal); M70.21 Olecranon bursitis, right elbow; M80.08XA Age-related osteoporosis with current pathological fracture, vertebra(e), initial encounter for fracture; R20.0 Anesthesia of skin; I35.0 Nonrheumatic aortic (valve) stenosis; D69.6 Thrombocytopenia, unspecified; S83.207D Unspecified tear of unspecified meniscus, current injury, left knee, subsequent encounter; M51.36 Other intervertebral disc degeneration, lumbar region; M17.12 Unilateral primary osteoarthritis, left knee
CPT/HCPCS: 20610; 99215

== ENCOUNTER → 2024-03-21 14:17 | Outpatient (BNVA) | payer MEDICARE, SELFPAY | PROVIDERS: PCP Internal Medicine; Visit Provider Student in an Organized Health Care Education/Training Program | DX: M06.09 Rheumatoid arthritis without rheumatoid factor, multiple sites (principal); M17.12 Unilateral primary osteoarthritis, left knee; S83.207D Unspecified tear of unspecified meniscus, current injury, left knee, subsequent encounter; M70.21 Olecranon bursitis, right elbow; M80.08XA Age-related osteoporosis with current pathological fracture, vertebra(e), initial encounter for fracture; R20.0 Anesthesia of skin; I35.0 Nonrheumatic aortic (valve) stenosis; D69.6 Thrombocytopenia, unspecified; M51.360 Other intervertebral disc degeneration, lumbar region with discogenic back pain only | CPT/HCPCS: 20610; 99212; J7323 ==

== ENCOUNTER 2024-04-29 14:02 | Outpatient (AMB) | payer MEDICARE, SELFPAY ==
--- NOTE | 2024-04-29 14:19 | MHC.OFFVIS ---
Vital Signs 04/29/24 14:22 Height 5 ft 7 in Weight 166 lb 0.129 oz BMI 26.0 BP 92/68 Blood Pressure Location Lt brachial Position Sitting Pulse 72 Pulse Source Pulse Oximeter Pulse Oximetry (%) 98 Oxygen Delivery Method Room Air Intake Visit Reasons: RA/CM Intake Note: Patient presents for RA. Allergies Penicillins Allergy (Severe, Verified 04/29/24 14:21) ITCHING-SEVERE piperacillin [From Zosyn] Allergy (Mild, Verified 04/29/24 14:21) JAUNDICE tazobactam [From Zosyn] Allergy (Mild, Verified 04/29/24 14:21) JAUNDICE Medication List - Last Reconciled 04/29/24 by Marisela Neil MD acetaminophen ER (Tylenol 8 Hour) 650 mg PO Q8H PRN Actemra ACTPen (tocilizumab) 162 mg (0.9 mL) subcut Q2W NS aspirin 81 mg PO DAILY atorvastatin mg PO calcium citrate 1,600 mg PO BID cholecalciferol (vitamin D3) 50 mcg PO BID citalopram 20 mg PO DAILY cyclobenzaprine 10 mg PO DAILY docusate sodium 100 mg PO BID furosemide mg PO gabapentin 600 mg PO TID leflunomide Take 1 tab daily for 2 weeks then stay on 2 tabs daily [Novolog U-100 Insulin aspart via TANDEM insulin pump] omeprazole 20 mg PO BID oxycodone 5 mg PO Q6H PRN pilocarpine HCl 5 mg PO BID polyethylene glycol 3350 (Miralax) 17 grams PO DAILY prednisone 7.5 mg (3 x 2.5 mg) PO DAILY prednisone 10 mg PO DAILY tamsulosin 0.4 mg PO BEDTIME testosterone cypionate 60 mg IM TU vitamins A,C,X-kuxu-qfuhfr 4,296 mcg-226 mg-90 mg (PreserVision AREDS) 1 cap PO BID HPI Comments Details: 84-year-old male with seronegative RA returns for follow-up. He states that his left knee is better. He continues to have some pain and stiffness of his left hand and wrist. He had to take his ring off. States that a couple of weeks ago he fell off his bed onto his right shoulder when he was trying to answer the telephone. He went to the [place] and had x-rays and was told he has no fractures. [facility] Medical History Symptomatic stenosis of left carotid artery Aortic stenosis Rheumatoid arthritis Carpal tunnel syndrome Former smoker Insulin pump in place Diabetes Elevated cholesterol CAD (coronary artery disease) HTN (hypertension) Surgical History History of left-sided carotid endarterectomy (02/15/23) Hx of carpal tunnel repair Hx of cardiac catheterization History of shoulder surgery History of cholecystectomy History of hand surgery Hx of hemorrhoidectomy Hx of lumbar discectomy H/O colonoscopy Family History Father Heart attack Heart disease Mother Pacemaker Cataracts, bilateral Sister Heart problem Heart valve replaced Arthritis Brother Heart attack Brother Rectal cancer Sister History of modified radical mastectomy of right breast Social History Household Members: None Housing: House Are you a primary child care development specialist to a significant other at home: No Do you presently have visiting nurse or other home services: No Alcohol intake: former Patient Tobacco Use Status: Former Tobacco user Tobacco use type: Cigarette Years Smoked: 5 YEARS Advance Directives Date on File: 02/07/23 service: No Current occupational status: employed Current occupation: [employer], rt handed Review of Systems Musc Reports arthralgias, Reports joint swelling, Reports limited range of motion and Reports stiffness Physical Exam Vital Signs: Last Vital Signs Pulse 72 04/29/24 14:22 BP 92/68 04/29/24 14:22 Pulse Ox 98 04/29/24 14:22 Oxygen Delivery Method Room Air 04/29/24 14:22 BMI result Body Mass Index 26.0 Const General: cooperative, healthy appearing, comfortable and no acute distress Nutritional Appearance: overweight Orientation/consciousness: patient oriented x3 Limitations: no limitations HEENT Head: Yes normocephalic and Yes atraumatic Resp Effort & Inspection: normal respiratory effort and able to speak in complete sentences Auscultation: crackles bilateral at the base Skin Other: Multiple bruises with fragile skin on arms, forearms, hands and legs (chronic) Neuro General: patient oriented x3 Extrem Other: Mild left wrist swelling tenderness Left 3rd and 4th PIP and DIP tenderness Mild swelling of left 4th finger Limited range of motion of right shoulder with positive empty can test and Speed's test Bilateral knee crepitus but no swelling or warmth. No pain with flexion-extension No ankle or feet swelling or tenderness Negative Tinel sign on the right Assessment & Plan Assessment & Plan (1) Rheumatoid arthritis: Comment: Seronegative initially diagnosed has PMR around 2004 Was only on prednisone until 2021 when HCQ was added with little benefit MTX added 08/2022- -11/08 not particularly effective and patient developed tender skin nodule on LT forearm Enbrel 11/08-02/08 ineffective Actemra 03/11 effective HCQ DC 11/2023 Code(s): M06.9 - Rheumatoid arthritis, unspecified Category: Medical Qualifiers: Rheumatoid arthritis location: multiple sites Rheumatoid factor presence: without rheumatoid factor Qualified Code(s): M06.09 - Rheumatoid arthritis without rheumatoid factor, multiple sites Plan: This is an 84-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 On Actemra 162 mg every other week, leflunomide 20 mg daily, prednisone 10 mg daily. Doing slightly better than last visit. Discussed with patient that I would like to lower his prednisone. Reduce prednisone to 7.5 mg daily States that he has had blood work done recently at his new PCPs also. Advised patient to ask his PCP send us his most recent set of labs. If labs are unremarkable I will renew his leflunomide prescription Continue Actemra 162 mg subcutaneously every other week Continue Actemra Labs before next visit in 3 months (2) Olecranon bursitis, right elbow: Code(s): M70.21 - Olecranon bursitis, right elbow Category: Medical Plan: Per patient fluctuating right elbow swelling over the last 2-3 years. Patient has pain with right elbow pressure. Otherwise denies any elbow pain. In 2018 patient had recurrent left olecranon bursitis. Eventually he had a bursectomy. 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 03/2023, right olecranon bursitis was aspirated and injected with Kenalog. It showed 2600 WBCs with 100% lymphocytes. Bacterial cultures are negative, with no crystals. 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 Had been on at least 10 mg of prednisone for more than 15 years. Per patient recent multiple vertebral fractures in 2021. He follows up with endocrinology and is on testosterone and Prolia (4) Tear of meniscus of left knee: Code(s): S83.207A - Unspecified tear of unspecified meniscus, current injury, left knee, initial encounter Category: Medical Qualifiers: Tear current or old: current Encounter type: subsequent encounter Meniscus of knee: unspecified Meniscus tear of knee type: unspecified type Qualified Code(s): S83.207D - Unspecified tear of unspecified meniscus, current injury, left knee, subsequent encounter Plan: Was evaluated by Orthopedics and received a steroid injection 10/2023 which gave relief for 1-2 weeks. I think his symptoms are rather consistent with knee osteoarthritis. Patient received a course of 3 Euflexxa injections last month with significant improvement. (5) Lumbar degenerative disc disease: Code(s): M51.36 - Other intervertebral disc degeneration, lumbar region Category: Medical Plan: Daily symptoms of back pain and stiffness. History of L-spine surgery 30 years ago. Recently went back to a sales recruitment specialist and will be getting an injection soon (6) High risk medication use: Code(s): Z79.899 - Other supervisor intermediates (current) drug therapy Category: Medical Plan: Monitor safety labs for leflunomide Side effects of Actemra were discussed with the patient in detail including increased risk of infection, demyelinating disease, reactivation of latent TB, possible increased risk of solid and skin tumors. Patient fully aware. Advised patient to seek medical care [facility] if patient has an infection and advised patient to stop the medication until the infection is resolved. Plan I spent 25 minutes reviewing patient's chart, evaluating patient, ordering diagnostic workup, counseling patient and documenting in the chart Orders: Orders Complete Blood Count Auto Diff 3 Months M06.09 - Rheumatoid arthritis without rheumatoid factor, multiple sites Erythrocyte Sedimentation Rate 3 Months M06.09 - Rheumatoid arthritis without rheumatoid factor, multiple sites C Reactive Protein 3 Months M06.09 - Rheumatoid arthritis without rheumatoid factor, multiple sites Comprehensive Met. Panel 3 Months M06.09 - Rheumatoid arthritis without rheumatoid factor, multiple sites Medications: New prednisone 7.5 mg (3 x 2.5 mg) PO DAILY 90 tabs 2RF Coding Level of Care Code Est Pt Level 5 (71148) Complex EM visit Add On G2211 Diagnoses Rheumatoid arthritis of multiple sites with negative rheumatoid factor M06.09 Rheumatoid arthritis location: multiple sites Rheumatoid factor presence: without rheumatoid factor Olecranon bursitis, right elbow M70.21 Osteoporosis with pathological fracture of thoracic vertebra M80.08XA Tear of meniscus of left knee as current injury, unspecified meniscus, unspecified tear type, subsequent encounter S83.207D Tear current or old: current Encounter type: subsequent encounter Meniscus of knee: unspecified Meniscus tear of knee type: unspecified type Lumbar degenerative disc disease M51.36 High risk medication use Z79.899
[2024-04-29 14:22] VITALS: BP 92/68; PULSE 72; O2SAT 98; BMI 26.0
== END 2024-04-29 15:02 | disposition home or self-care (01) ==
PROVIDERS: PCP Internal Medicine; Visit Provider Student in an Organized Health Care Education/Training Program
DX: M06.09 Rheumatoid arthritis without rheumatoid factor, multiple sites (principal); M70.21 Olecranon bursitis, right elbow; M80.08XA Age-related osteoporosis with current pathological fracture, vertebra(e), initial encounter for fracture; S83.207D Unspecified tear of unspecified meniscus, current injury, left knee, subsequent encounter; M51.369 Other intervertebral disc degeneration, lumbar region without mention of lumbar back pain or lower extremity pain; Z79.899 Other long term (current) drug therapy
CPT/HCPCS: 99214; G2211

== ENCOUNTER → 2024-04-29 14:02 | Outpatient (BNVA) | payer MEDICARE, SELFPAY | PROVIDERS: PCP Internal Medicine; Visit Provider Student in an Organized Health Care Education/Training Program | DX: M06.09 Rheumatoid arthritis without rheumatoid factor, multiple sites (principal); M70.21 Olecranon bursitis, right elbow; M80.08XA Age-related osteoporosis with current pathological fracture, vertebra(e), initial encounter for fracture; S83.207D Unspecified tear of unspecified meniscus, current injury, left knee, subsequent encounter; X58.XXXD Exposure to other specified factors, subsequent encounter; M51.369 Other intervertebral disc degeneration, lumbar region without mention of lumbar back pain or lower extremity pain; Z79.52 Long term (current) use of systemic steroids | CPT/HCPCS: 99212 ==

== ENCOUNTER 2024-04-30 11:38 | Outpatient (REF) | payer MEDICARE, SELFPAY ==
[2024-04-30 12:04] LABS: MANUAL DIFF FLAG NO
[2024-04-30 12:54] LABS: Basophils Percent Auto 0.9 % (0-2); Eosinophils Absolute Auto 0.1 X10*3/uL (0.0-0.4); Eosinophils Percent Auto 1.4 % (0-4); Hematocrit 43.3 % (42.0-52.0); Hemoglobin 14.1 g/dl (14.0-18.0); Imm Gran Abs Auto 0.04 X10*3/uL (0.00-0.03); Imm Gran Pct Auto 0.9 % (0.0-0.4); Lymphocytes Absolute Auto 0.8 X10*3/uL (1.2-4.9); Lymphocytes Percent Auto 19.5 % (20-40); Mean Corpuscular HGB Conc 32.6 g/dl (31.0-36.0); Mean Corpuscular Volume 89.1 fL (80.0-98.0); Mean Platelet Volume 9.7 fL (9.4-12.4); Monocytes Absolute Auto 0.7 X10*3/uL (0.1-1.2); Monocytes Percent Auto 16.2 % (2-11); Neutrophils Absolute Auto 2.6 x10*3/uL (2.0-8.3); Neutrophils Percent Auto 61.1 % (45-73); Platelet Count 130 X10*3/uL (160-400); Red Blood Count 4.86 X10*6/uL (4.60-5.80); Red Cell Distribution Width 15.2 % (11.0-16.0); White Blood Count 4.3 X10*3/uL (4.8-10.8)
[2024-04-30 13:26] LABS: Alanine Aminotransferase 29 U/L (0-40); Anion Gap 13 (12-20); Aspartate Amino Transferase 29 U/L (5-37); Blood Urea Nitrogen 22 mg/dL (9-16); C Reactive Protein < 0.04 mg/dL (< or = 0.50); Calcium 9.9 mg/dL (8.4-10.2); Carbon Dioxide 31 mmol/L (22-29); Chloride 102 mmol/L (96-108); Estimated Glomerular Filt Rate > 60; Glucose Random 193 mg/dL (60-115); Potassium 3.8 mmol/L (3.3-5.1); Sodium 142 mmol/L (135-145); Total Protein 5.9 g/dL (6.5-8.0)
[2024-04-30 13:42] LABS: Erythrocyte Sedimentation Rate 2 MM/HR (0-15)
[2024-04-30 13:44] LABS: Alkaline Phosphatase 104 U/L (39-117)
== END 2024-04-30 11:39 | disposition home or self-care (01) ==
LOC: HO.LAB 11:38
PROVIDERS: Visit Provider Student in an Organized Health Care Education/Training Program
DX: M06.09 Rheumatoid arthritis without rheumatoid factor, multiple sites (principal); Z79.631 Long term (current) use of antimetabolite agent; M06.9 Rheumatoid arthritis, unspecified
CPT/HCPCS: 36415; 80053; 85025; 85652; 86140

== ENCOUNTER 2024-05-10 08:09 | Outpatient (REF) | payer MEDICARE, SELFPAY ==
[2024-05-10 08:31] LABS: MANUAL DIFF FLAG NO
[2024-05-10 08:47] LABS: Basophils Percent Auto 0.8 % (0-2); Eosinophils Percent Auto 0.8 % (0-4); Hematocrit 39.5 % (42.0-52.0); Hemoglobin 13.2 g/dl (14.0-18.0); Imm Gran Abs Auto 0.02 X10*3/uL (0.00-0.03); Imm Gran Pct Auto 0.4 % (0.0-0.4); Lymphocytes Absolute Auto 1.5 X10*3/uL (1.2-4.9); Mean Corpuscular HGB Conc 33.4 g/dl (31.0-36.0); Mean Corpuscular Hemoglobin 29.3 pg (27.0-33.0); Mean Corpuscular Volume 87.6 fL (80.0-98.0); Mean Platelet Volume 9.3 fL (9.4-12.4); Monocytes Absolute Auto 0.9 X10*3/uL (0.1-1.2); Monocytes Percent Auto 18.8 % (2-11); Neutrophils Absolute Auto 2.3 x10*3/uL (2.0-8.3); Neutrophils Percent Auto 48.2 % (45-73); Platelet Count 123 X10*3/uL (160-400); Red Blood Count 4.51 X10*6/uL (4.60-5.80); Red Cell Distribution Width 14.9 % (11.0-16.0); White Blood Count 4.8 X10*3/uL (4.8-10.8)
[2024-05-10 09:14] LABS: Alanine Aminotransferase 31 U/L (0-40); Albumin Level 3.9 g/dL (3.5-5.0); Alkaline Phosphatase 73 U/L (39-117); Anion Gap 13 (12-20); Aspartate Amino Transferase 32 U/L (5-37); Bilirubin Total 1.1 mg/dL (0.0-1.0); Blood Urea Nitrogen 22 mg/dL (9-16); C Reactive Protein < 0.04 mg/dL (< or = 0.50); Carbon Dioxide 30 mmol/L (22-29); Chloride 104 mmol/L (96-108); Estimated Glomerular Filt Rate > 60; Glucose Random 200 mg/dL (60-115); Potassium 3.8 mmol/L (3.3-5.1); Sodium 143 mmol/L (135-145); Total Protein 5.5 g/dL (6.5-8.0)
[2024-05-10 09:27] LABS: Erythrocyte Sedimentation Rate 2 MM/HR (0-15)
== END 2024-05-10 08:10 | disposition home or self-care (01) ==
LOC: HO.LAB 08:09
PROVIDERS: Visit Provider Student in an Organized Health Care Education/Training Program
DX: M06.9 Rheumatoid arthritis, unspecified (principal); M06.09 Rheumatoid arthritis without rheumatoid factor, multiple sites
CPT/HCPCS: 36415; 80053; 85025; 85652; 86140

== ENCOUNTER 2024-05-21 09:43 | Outpatient (AMB) | payer MEDICARE, SELFPAY ==
--- NOTE | 2024-05-21 10:29 | A.OFFVIS_ITS ---
Vital Signs 05/21/24 10:33 Height 5 ft 7 in Weight 167 lb 15.876 oz BMI 26.3 BP 100/60 Blood Pressure Location Lt brachial Position Sitting Pulse 61 Pulse Source Pulse Oximeter Pulse Oximetry (%) 98 Oxygen Delivery Method Room Air Intake Visit Reasons: RA/CM Intake Note: Patient presents for RA. Allergies Penicillins Allergy (Severe, Verified 05/21/24 10:32) ITCHING-SEVERE piperacillin [From Zosyn] Allergy (Mild, Verified 05/21/24 10:32) JAUNDICE tazobactam [From Zosyn] Allergy (Mild, Verified 05/21/24 10:32) JAUNDICE Medication List - Last Reconciled 05/21/24 by Marisela Neil MD acetaminophen ER (Tylenol 8 Hour) 650 mg PO Q8H PRN Actemra ACTPen (tocilizumab) 162 mg (0.9 mL) subcut Q2W NS aspirin 81 mg PO DAILY atorvastatin mg PO calcium citrate 1,600 mg PO BID cholecalciferol (vitamin D3) 50 mcg PO BID citalopram 20 mg PO DAILY cyclobenzaprine 10 mg PO DAILY docusate sodium 100 mg PO BID furosemide mg PO gabapentin 600 mg PO TID hydroxychloroquine Take 2 tabs daily x5 days a week and 1 tab daily x2 days a week leflunomide 20 mg PO DAILY [Novolog U-100 Insulin aspart via TANDEM insulin pump] omeprazole 20 mg PO BID oxycodone 5 mg PO Q6H PRN pilocarpine HCl 5 mg PO BID polyethylene glycol 3350 (Miralax) 17 grams PO DAILY prednisone 7.5 mg (3 x 2.5 mg) PO DAILY tamsulosin 0.4 mg PO BEDTIME testosterone cypionate 60 mg IM TU vitamins A,C,P-najj-tzibgd 4,296 mcg-226 mg-90 mg (PreserVision AREDS) 1 cap PO BID HPI Comments Details: 84-year-old male with seronegative RA returns for follow-up. He continues to have some pain and stiffness of his left hand and wrist. He also gets pain and stiffness in his right hand PIP is. Morning stiffness lasts 3 hours. His left knee has been well since the gel injection a few months ago. He gets shortness of breath with walking 200 ft PFSH Medical History Symptomatic stenosis of left carotid artery Aortic stenosis Rheumatoid arthritis Carpal tunnel syndrome Former smoker Insulin pump in place Diabetes Elevated cholesterol CAD (coronary artery disease) HTN (hypertension) Surgical History History of left-sided carotid endarterectomy (02/15/23) Hx of carpal tunnel repair Hx of cardiac catheterization History of shoulder surgery History of cholecystectomy History of hand surgery Hx of hemorrhoidectomy Hx of lumbar discectomy H/O colonoscopy Family History Father Heart attack Heart disease Mother Pacemaker Cataracts, bilateral Sister Heart problem Heart valve replaced Arthritis Brother Heart attack Brother Rectal cancer Sister History of modified radical mastectomy of right breast Social History Household Members: None Housing: House Are you a primary healthcare management to a significant other at home: No Do you presently have visiting nurse or other home services: No Alcohol intake: former Patient Tobacco Use Status: Former Tobacco user Tobacco use type: Cigarette Years Smoked: 5 YEARS Advance Directives Date on File: 02/07/23 service: No Current occupational status: employed Current occupation: [employer], rt handed Review of Systems Card Reports dyspnea on exertion Resp Reports dyspnea on exertion Musc Reports arthralgias, Reports joint swelling, Reports limited range of motion and Reports stiffness Physical Exam Vital Signs: Last Vital Signs Pulse 61 05/21/24 10:33 BP 100/60 05/21/24 10:33 Pulse Ox 98 05/21/24 10:33 Oxygen Delivery Method Room Air 05/21/24 10:33 BMI result Body Mass Index 26.3 Const General: cooperative, healthy appearing, comfortable and no acute distress Nutritional Appearance: overweight Orientation/consciousness: patient oriented x3 Limitations: no limitations HEENT Head: Yes normocephalic and Yes atraumatic Resp Effort & Inspection: normal respiratory effort and able to speak in complete sentences Auscultation: crackles bilateral at the base Skin Other: Multiple bruises with fragile skin on arms, forearms, hands and legs (chronic) Neuro General: patient oriented x3 Extrem Other: Mild left wrist swelling and tenderness, pain with flexion-extension Left 4th PIP tenderness Mild swelling of left 4th finger Mild right 3rd and 4th PIP tenderness Normal range of motion of both shoulders today Negative Speed's tests, empty can test, infraspinatus test bilaterally Bilateral knee crepitus but no swelling or warmth. No pain with flexion- extension No ankle or feet swelling or tenderness Negative Tinel sign on the right Assessment & Plan Assessment & Plan (1) Rheumatoid arthritis: Comment: Seronegative initially diagnosed has PMR around 2004 Was only on prednisone until 2021 when HCQ was added with little benefit MTX added 08/2022- -11/08 not particularly effective and patient developed tender skin nodule on LT forearm Enbrel 11/08-02/08 ineffective Actemra 03/11 effective HCQ DC 11/2023 Code(s): M06.9 - Rheumatoid arthritis, unspecified Category: Medical Qualifiers: Rheumatoid arthritis location: multiple sites Rheumatoid factor presence: without rheumatoid factor Qualified Code(s): M06.09 - Rheumatoid arthritis without rheumatoid factor, multiple sites Plan: This is an 84-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 On Actemra 162 mg every other week, leflunomide 20 mg daily, prednisone 7.5 mg daily. Continues to have mildly active disease. Continues to have morning stiffness, multiple tender joints. Which is likely a combination of active RA and osteoarthritis. Start hydroxychloroquine at 400 mg daily x5 days a week and 200 mg daily x2 days a week Continue Actemra 162 mg subcutaneously every other week Continue leflunomide 20 mg daily and prednisone 7.5 mg daily Plan to reduce prednisone next visit Labs before next visit in 3 months (2) Olecranon bursitis, right elbow: Code(s): M70.21 - Olecranon bursitis, right elbow Category: Medical Plan: Per patient fluctuating right elbow swelling over the last 2-3 years. Patient has pain with right elbow pressure. Otherwise denies any elbow pain. In 2018 patient had recurrent left olecranon bursitis. Eventually he had a bursectomy. 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 03/2023, right olecranon bursitis was aspirated and injected with Kenalog. It showed 2600 WBCs with 100% lymphocytes. Bacterial cultures are negative, with no crystals. 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 Had been on at least 10 mg of prednisone for more than 15 years. Per patient recent multiple vertebral fr actures in 2021. He follows up with endocrinology and is on testosterone and Prolia (4) Tear of meniscus of left knee: Code(s): S83.207A - Unspecified tear of unspecified meniscus, current injury, left knee, initial encounter Category: Medical Qualifiers: Tear current or old: current Encounter type: subsequent encounter Meniscus of knee: unspecified Meniscus tear of knee type: unspecified type Qualified Code(s): S83.207D - Unspecified tear of unspecified meniscus, current injury, left knee, subsequent encounter Plan: Was evaluated by Orthopedics and received a steroid injection 10/2023 which gave relief for 1-2 weeks. I think his symptoms are rather consistent with knee osteoarthritis. Patient received a course of 3 Euflexxa injections 03/2024 with significant improvement. (5) Lumbar degenerative disc disease: Code(s): M51.36 - Other intervertebral disc degeneration, lumbar region Category: Medical Plan: Daily symptoms of back pain and stiffness. History of L-spine surgery 30 years ago. Recently went back to a product support specialist and will be getting an injection soon (6) High risk medication use: Code(s): Z79.899 - Other long wall shear operator (current) drug therapy Category: Medical Plan: Monitor safety labs for leflunomide Side effects of Actemra were discussed with the patient in detail including increased risk of infection, demyelinating disease, reactivation of latent TB, possible increased risk of solid and skin tumors. Patient fully aware. Advised patient to seek medical care AHMET if patient has an infection and advised patient to stop the medication until the infection is resolved. (7) Shortness of breath: Code(s): R06.02 - Shortness of breath Category: Medical Plan: Chest crackles on exam. I will order HRCT Advised patient to follow-up with his sport shoe spike assembler (8) Long-term use of hydroxychloroquine: Code(s): Z79.899 - Other halfway (current) drug therapy Category: Medical Plan: Follow-up regularly with dust brush assembler Plan I spent 30 minutes reviewing patient's chart, evaluating patient, ordering diagnostic workup, counseling patient and documenting in the chart Orders: Orders Complete Blood Count Auto Diff 3 Months M06.09 - Rheumatoid arthritis without rheumatoid factor, multiple sites, Z79.899 - Other halfway (current) drug therapy Comprehensive Met. Panel 3 Months M06.09 - Rheumatoid arthritis without rheumatoid factor, multiple sites, Z79.899 - Other halfway (current) drug therapy C Reactive Protein 3 Months M06.09 - Rheumatoid arthritis without rheumatoid factor, multiple sites, Z79.899 - Other halfway (current) drug therapy Hepatitis A,B,C Profile 3 Months Z11.59 - Encounter for screening for other viral diseases Erythrocyte Sedimentation Rate 3 Months M06.09 - Rheumatoid arthritis without rheumatoid factor, multiple sites, Z79.899 - Other halfway (current) drug therapy T Spot TB 3 Months Z11.7 - Encounter for testing for latent tuberculosis infection CT chest wo con - High Res Today M06.09 - Rheumatoid arthritis without rheumatoid factor, multiple sites, R09.89 - Other specified symptoms and signs involving the circulatory and respiratory systems Medications: New hydroxychloroquine Take 2 tabs daily x5 days a week and 1 tab daily x2 days a week 144 tabs 0RF Coding Level of Care Code Est Pt Level 5 (33034) Complex EM visit Add On G2211 Diagnoses Rheumatoid arthritis of multiple sites with negative rheumatoid factor M06.09 Rheumatoid arthritis location: multiple sites Rheumatoid factor presence: without rheumatoid factor Olecranon bursitis, right elbow M70.21 Osteoporosis with pathological fracture of thoracic vertebra M80.08XA Tear of meniscus of left knee as current injury, unspecified meniscus, unspecified tear type, subsequent encounter S83.207D Tear current or old: current Encounter type: subsequent encounter Meniscus of knee: unspecified Meniscus tear of knee type: unspecified type Lumbar degenerative disc disease M51.36 High risk medication use Z79.899 Shortness of breath R06.02 Long-term use of hydroxychloroquine Z79.899
[2024-05-21 10:33] VITALS: BP 100/60; PULSE 61; O2SAT 98; BMI 26.3
== END 2024-05-21 11:04 | disposition home or self-care (01) ==
PROVIDERS: Visit Provider Student in an Organized Health Care Education/Training Program
DX: M06.09 Rheumatoid arthritis without rheumatoid factor, multiple sites (principal); M70.21 Olecranon bursitis, right elbow; M80.08XA Age-related osteoporosis with current pathological fracture, vertebra(e), initial encounter for fracture; S83.207D Unspecified tear of unspecified meniscus, current injury, left knee, subsequent encounter; M51.369 Other intervertebral disc degeneration, lumbar region without mention of lumbar back pain or lower extremity pain; Z79.899 Other long term (current) drug therapy; R06.02 Shortness of breath
CPT/HCPCS: 99214; G2211

== ENCOUNTER → 2024-05-21 09:43 | Outpatient (BNVA) | payer MEDICARE, SELFPAY | PROVIDERS: Visit Provider Student in an Organized Health Care Education/Training Program | DX: M06.09 Rheumatoid arthritis without rheumatoid factor, multiple sites (principal); M70.21 Olecranon bursitis, right elbow; M51.369 Other intervertebral disc degeneration, lumbar region without mention of lumbar back pain or lower extremity pain; R06.02 Shortness of breath; R09.89 Other specified symptoms and signs involving the circulatory and respiratory systems; S83.207D Unspecified tear of unspecified meniscus, current injury, left knee, subsequent encounter; M80.08XD Age-related osteoporosis with current pathological fracture, vertebra(e), subsequent encounter for fracture with routine healing; X58.XXXD Exposure to other specified factors, subsequent encounter; Z79.899 Other long term (current) drug therapy | CPT/HCPCS: 99212 ==

== ENCOUNTER 2024-06-14 13:08 | Outpatient (REF) | payer OTHER, SELFPAY ==
--- OUTSIDE RECORDS SUMMARY | 2024-06-14 13:16 | XMS_ITS | Encounter Summary ---
Author Name [facility] [facility] [place] [facility] [place] Address [address] [place] [id number] Care Team Providers Care Dredge Master Name Role Phone TOÑO CAI Primary Care [...] Wen's Name Patient's Relationship to Policy Wen [place] SUPPLEMEN MASTER PSUED O MEDEX BRONZ E Mar 19, 2004 [id number] [phone] HOLLIE SHEPHERD PATIENT [place] SUPPLEMEN MASTER MEDEX [place] E Mar 19, 2004 [id number] [phone] HOLLIE SHEPHER[place] SUPP[place] MASTER MEDEX [place]ON[place] E Mar 19, 2004 [id number] [phone] HOLLIE SHEPHERD PATIENT BCBS [facility] MEDICARE SUPPLEMEN MASTER PSUED O MEDEX BRONZ E Mar 19, 2004 [id number] HOLLIE SHEPHERD PATIENT MEDICARE ([place]) MEDICARE (M) PART B Mar 19, 2004 PART B [id number] [phone] CORA,HOLLIE ALD PATIENT MEDICARE ([place]) MEDICARE (M) PART B Mar 19, 2004 PART B [id number] HOLLIE SHEPHERD ALD PATIENT MEDICARE ([place]) MEDICARE (M) PART B Mar 19, 2004 PART B [id number] HOLLIE SHEPHERD ALD PATIENT MEDICARE ([place]) MEDICARE (M) PART A Feb 17, 2003 PART A [id number] HOLLIE SHEPHERD ALD PATIENT MEDICARE ([place]) MEDICARE (M) PART A Feb 17, 2003 PART A [id number] HOLLIE SHEPHERD ALD PATIENT MEDICARE ([place]NR) MEDICARE (M) PART A Feb 17, 2003 PART A [id number] [phone] HOLLIE SHEPHERD ALD PATIENT MEDICARE ([place]NR) MEDICARE (M) PART A Feb 17, 2003 PART A [id number] HOLLIE SHEPHERD ALD PATIENT MEDICARE ([place]) MEDICARE (M) PART B Feb 17, 2003 PART B [id number] HOLLIE SHEPHERD PATIENT MEDICARE ([place]) MEDICARE (M) PART A Feb 17, 2003 PART A [id number] HOLLIE SHEPHERD PATIENT MEDICARE ([place]) MEDICARE (M) PART B Feb 17, 2003 PART B [id number] HOLLIE SHEPHERD PATIENT Selected Encounter This section includes the information on record at [place] for the Encounter. Date/Time Encounter Type Encounter Description Reason Provider Source Jul 12, 2023 10:00 AM OFFICE O/P EST MOD 30 [facility] - IND ICD-10-CM F33.9 Major depressive disorder, recurrent, unspecified MEREDITH,GIHYUN E Encounter Template Text not used by [place] Assessments - Encounter Diagnoses This section includes the primary and secondary diagnoses documented for the Encounter. Date/Time Primary/Secondary Diagnosis Diagnosis Name Provider Source Jul 25, 2023 04:00 PM PRIMARY Major depressive disorder, recurrent, unspecified MEREDITH,GIHYUN [facility] Plan of Treatment: Future Appointments (+ 6 months) and Future Tests (+/- 45 days) The Plan of Treatment section includes future care activities for the patient from all [place] [facility]. This section includes future appointments and future orders which are active, pending or scheduled. Future Appointments This section includes appointments that were scheduled to occur 6 months from the date of the Encounter, up to a maximum of 20 appointments. The data comes from all [place] treatment facilities. Appointment Date/Time Appointment Type Appointme nt Facility Name Jul 13, 2023 11:00 AM [facility]ULATORY [facility] [place] [facility] Aug 11, 2023 11:00 AM [facility] [place] [facility] Oct 09, 2023 10:00 AM [facility]ATORY [facility] [place] [facility] Oct 10, 2023 02:30 PM AMBULATORY - MEDICINE [facility] [place] [facility] October 18, 2023 01:00 PM AMBULATORY [facility]IC[facility] [place] [facility] November 01, 2023 10:30 AM [place]ORY [place] [facility] November 01, 2023 10:30 AM AMBULATORY - PS[facility]CHIATRY [facility] [place] [facility] November 01, 2023 11:15 AM [facility]ULATORY [facility]IC[facility] [place] [facility] November 01, 2023 01:30 PM AM[facility]ULATORY [facility]IC[facility] [place] [facility] November 02, 2023 11:15 AM AM[facility]ULATORY [facility]IC[facility] [place] [facility] November 02, 2023 11:30 AM [place] [facility] [facility] November 06, 2023 02:50 PM [place]ORY [place] [facility] [facility] Nov 22, 2023 10:00 AM AM[facility]UL[facility]ORY [facility]IC[facility] [place] [facility] Nov 27, 2023 02:00 PM [place]ORY [place] [facility] [facility] Lab Results: +/- 30 days of the encounter This section includes the Chemistry and Hematology Lab Results on record with [place] for the patient. Radiology Reports and Pathology Reports are provided separately, in subsequent sections. Lab Results This section contains the Chemistry/Hematology Results that were resulted 30 days before or 30 daysafter the date of the Encounter. Date/Time Source Result Type Result - Unit Interpretation Reference Range Comment Aug 08, 2023 01:07 PM [facility] MICROALBUMIN CREATININE RATIO PANEL Specimen Type: URINE No comment entered. Ordering Provider: JACINTO CAI Report Released Date/Time: Mar 24, 2023 11:19 AM Reporting Lab: [facility] [address] [facility] [address] Performing Lab: [address] [address] MICROALBUMIN/CR EATININE RATIO 16.2 mg/g 0-29.9 MICROALBUMIN,QU ANTITATIVE 0.5 mg/dL RR UNAVAIL CREATININE URINE 30.95 mg/dL Aug 03, 2023 08:05 AM [facility] IGG SUBCLASSES PANEL (Q) Specimen Type: SERUM Comment: Test Performed by [employer] [facility], [address] [place] [address] Esteban Higuera M.D., Ph.D., Director of Laboratories , CLIA [id number] TEST PERFORMED AT: , Ordering Provider: JACINTO CAI Report Released Date/Time: Jun 23, 2023 04:50 PM Reporting Lab: [address] [address] Performing Lab: [facility] [address] [address] IGG 1 (q) 202 mg/dL L 382-929 IGG 2 (q) 137 mg/dL L 241-700 IGG 3 (q) 14 mg/dL L 22-178 IGG 4 (q) 15.4 mg/dL 4.0-86.0 IGG, SERUM (q) 380 mg/dL L 600-1540 Aug 03, 2023 08:05 AM [facility] TESTOSTERONE, TOTAL Specimen Type: SERUM No comment entered. Ordering Provider: ALLIE CUELLO Report Released Date/Time: Apr 23, 2023 05:28 PM Reporting Lab: [address] [address] Performing Lab: [facility] [address] [facility] [address] TESTOSTERONE, TOTAL 882.02 ng/dL 220.00-892 .00 Aug 03, 2023 08:05 AM [facility] IGM Specimen Type: SERUM No comment entered. Ordering Provider: JACINTO CAI Report Released Date/Time: Jun 23, 2023 04:50 PM Reporting Lab: [facility] [address] [facility] [address] Performing Lab: [facility] [address] [facility] [address] IGM 31 mg/dL L 40-230 Aug 03, 2023 08:05 AM [facility] IGG Specimen Type: SERUM No comment entered. Ordering Provider: JACINTO CAI Report Released Date/Time: Jun 23, 2023 04:50 PM Reporting Lab: [facility] [address] [facility] [address] Performing Lab: [facility] SSD[facility] [address] [facility] [address] IGG 377 mg/dL L 700-1600 Aug 03, 2023 08:05 AM [facility] IMMUNOGLOBLIN (IgG,IgM,IgA) Specimen Type: SERUM No comment entered. Ordering Provider: JACINTO CAI Report Released Date/Time: Jun 23, 2023 04:50 PM Reporting Lab: [facility] TRN [facility] [address] [facility] [address] Performing Lab: [facility] TRN [facility] SSD[facility] [address] [facility] [address] IGG 380 mg/dL L 700-1600 IGA 27 mg/dL L 70-400 IGM 30 mg/dL L 40-230 Aug 03, 2023 08:05 AM [facility] LIPID PANEL FASTING Specimen Type: SERUM No comment entered. Ordering Provider: ALLIE CUELLO Report Released Date/Time: Apr 23, 2023 05:29 PM Reporting Lab: [facility] [address] [facility] [address] Performing Lab: [facility] [address] [facility] [address] CHOLESTEROL 107 mg/dL TRIGLYCERIDE 70 mg/dL 0-150 LDL calculated 50 mg/dL 0-129 CHOL/HDL 2.5 HDL CHOLESTEROL 43 mg/dL 40-60 Aug 03, 2023 08:05 AM [facility] BASIC METABOLIC PANEL (non-fasting) Specimen Type: SERUM No comment entered. Ordering Provider: ALLIE CUELLO Report Released Date/Time: Apr 23, 2023 05:27 PM Reporting Lab: [address] [address] Performing Lab: [address] [address] UREA NITROGEN 17 mg/dL 7-25 GLUCOSE 116 mg/dL H 65-100 SODIUM 144 mmol/L 135-145 POTASSIUM 4.1 mmol/L 3.5-5.0 CHLORIDE 104 mmol/L 100-110 CO2 28 meq/L 20-30 CREATININE, Serum 0.89 mg/dL 0.50-1.40 eGFR(CKD-EPI 2020) 83 mL/min >60 Aug 03, 2023 08:05 AM [facility] CBC Specimen Type: BLOOD No comment entered. Ordering Provider: ALLIE CUELLO Report Released Date/Time: Apr 23, 2023 05:28 PM Reporting Lab: [address] [address] Performing Lab: [address] [address] WBC 4.75 10*3/uL 4.50-11.00 RBC 4.81 10*6/uL 4.23-5.66 HGB 13.6 g/dL 12.8-17 HCT 42.4 39.2-50.4 MCV 88.1 fL 82-99 MCHC 32.1 g/dL 30.8-35.1 PLT 150 10*3/uL 140-360 RDW-CV 13.5 12.0-16.0 MCH 28.3 pg 26.2-32.6 Aug 03, 2023 08:05 AM [facility] CBC AND DIFF (AUTO) Specimen Type: BLOOD No comment entered. Ordering Provider: JACINTO CAI Report Released Date/Time: Jun 23, 2023 04:50 PM Reporting Lab: [facility] [address] [facility] [address] Performing Lab: [facility] [address] [facility] [address] WBC 4.75 10*3/uL 4.50-11.00 RBC 4.81 10*6/uL 4.23-5.66 HGB 13.6 g/dL 12.8-17 HCT 42.4 39.2-50.4 MCV 88.1 fL 82-99 MCHC 32.1 g/dL 30.8-35.1 PLT 150 10*3/uL 140-360 RDW-CV 13.5 12.0-16.0 [place], Abs 1.04 10*3/uL 0.30-1.10 MCH 28.3 pg 26.2-32.6 Neut % 42.5 L 43.7-75.8 Lymph % 33.5 14.0-42.3 [place] % 21.9 H 5.1-13.7 Eos % 1.3 0.4-6.8 Baso % 0.6 0.1-2.0 Neut, Abs 2.02 10*3/uL L 2.20-7.60 Lymph, Abs 1.59 10*3/uL 1.00-3.20 Eos, Abs 0.06 10*3/uL 0.03-0.44 Baso, Abs 0.03 10*3/uL 0.01-0.13 Immature Gran % 0.2 0.0-0.7 Immature Gran, Abs 0.01 10*3/uL 0.00-0.06 Aug 03, 2023 08:04 AM [facility] HEMOGLOBIN A1C PANEL Specimen Type: BLOOD Comment: Values obtained from A1C measurements can vary. For atypical A1C assays, a reported value of 7.0 could actually be between 6.72 and 7.28 if measured by a reference method. A reported value of 9.0 could actually be between 8.73 and 9.27. Ref: http://www.ng sp.org/CAPdat a.asp Ordering Provider: JACINTO CAI Report Released Date/Time: Mar 24, 2023 11:19 AM Reporting Lab: [facility] [address] [facility] [address] Performing Lab: [address] [address] HEMOGLOBIN A1C 6.0 H 4.0-5.6 Aug 03, 2023 08:04 AM [facility] LIVER FUNCTION Specimen Type: SERUM No comment entered. Ordering Provider: JACINTO CAI Report Released Date/Time: Mar 24, 2023 11:19 AM Reporting Lab: [address] [address] Performing Lab: [address] [address] PROTEIN,TOTAL 5.6 g/dL L 6.0-8.3 ALBUMIN 4.0 g/dL 3.5-5.0 ALKALINE PHOSPHATASE 80 U/L 40-150 AST 23 U/L 5-34 ALT 36 U/L BILIRUBIN, TOTAL 0.8 mg/dL 0.2-1.2 Advance Directives: All historical and current Section Date Range: From patient's date of to the date document was created. This section includes ALL of a patient's completed or amended [place] Advance and Rescinded Directives. The entries below indicate that a directive exists for the patient, but an actual copy is not included with this document. The data comes from all [place] facilities. Date Advance Directives Provider Source Jun 02, 2023 ADVANCE DIRECTIVE JENNIFER QUIROS [facility] Encounter Notes: All associated encounter notes This section contains the clinical notes associated to the Encounter. Date/Time Encounter Note(s) Provider Source Jul 12, 2023 04:00 PM MENTAL HEALTH NOTE : LOCAL TITLE: TELEMENTAL HEALTH NOTE STANDARD TITLE: MENTAL HEALTH NOTE DATE OF NOTE: JUL 12, 2023@16:00 ENTRY DATE: JUL 12, 2023@16:00:50 AUTHOR: RADHA HARPER EXP COSIGNER: URGENCY: STATUS: COMPLETED Clinical services provided by Radha Harper MD, staff psychiatrist. Clinical services are being provided via Telemental Health from the [facility] to the [facility] through the [facility] Clinical Resource Hub. was seen on JUL 12, 2023 by [facility] Clinical Resource Hub provider Radha Harper MD via telehealth in the following clinic: CWM V01 [facility] MH 04 PT CWM V01 [facility] MH PSY 04 PT CWM GO V01 [facility] MH PSY 04 PT CWM PO V01 [facility] MH PSY 04 PT CWM FO V01 [facility] MH PSY 04 PT CWM WO V01 [facility] MH PSY 04 PT CWM SO V01 [facility] MH PSY 04 PT Note title: Psychiatry Note Please see JLV for complete clinic note at: [facility] Service Delivery Method: CVT Length of Service: 30 minutes /thomas/ RADHA HARPER Psychiatrist Signed: 07/12/2023 16:01 RADHA HARPER [facility]
--- OUTSIDE RECORDS SUMMARY | 2024-06-14 13:16 | XMS_ITS | Continuity of Care Document ---
Author Name [facility] Organization [facility] Care Team Providers Care Progress Man Name Role Phone [facility] Unavailable Unavailable Problems Combined list of problems from Department of Defense and Veterans Affairs facilities. It does not include entries that were removed or entered in error. Problem Status Onset Date Problem Type Date of Resolution Comments Source Adjustment disorder Active Condition [facility] Aortic Valve Disorder (SCT 4687776) Active Condition Oct 09, 2023 Entered By: LUCAS CAI AM Comment: TAVR 10/03/2023 [facility]. [facility] Cerebrovascular disease Active Condition Apr 26, 2023 Entered By: ALLIE CUELLO Comment: s/p L carotid endarterectomy [facility] Chronic recurrent major depressive disorder Active Condition [facility] Diabetes mellitus type 2 (SNOMED CT 53446554) Active Condition [facility] Diverticular disease of colon Active Condition [facility] Elevated PSA Active Condition [facility] Family history of cancer of colon Active Condition Oct 03, 2022 Entered By: LUCAS CAI AM Comment: Brother, rectal cancer. [facility] Gastroesophageal Reflux Disorder Active Condition [facility] Hemorrhoids Active Condition Jul 27, 2012 Entered By: LUCAS CAI AM Comment: 07/02/[address] Barrientos. [facility] History of colonic polyp Active Condition Mar 08, 2021 Entered By: LUCAS CAI AM Comment: One TA on 06/10/2020 colonoscopy. [facility] Hyperlipidemia (SNOMED CT 99507830) Active Condition [facility] Hypertension Active Condition [facility] Hypertension (SNOMED CT 39380947) Active Condition [facility] Insulin pump present Active Condition [facility] Lower Back Pain * (ICD-9-CM 724.2) Active Condition [facility] Major depressive disorder Active Condition [facility] Microscopic Hematuria Active Condition Aug 04, 2010 Entered By: VESTA DE LA CRUZ MD Comment: longstanding, Followed by community Urologist [facility] Osteoarthritis * (ICD-9-CM 715.90) Active Condition [facility] Osteoporosis Active Condition [facility] Polymyalgia Rheumatica Active Condition [facility] RA - Rheumatoid arthritis Active Condition [facility] Rosacea Active Condition [facility] Spinal Stenosis * (ICD-9-CM 724.00) Active Condition [facility] Testicular hypofunction Active Condition [facility] Vertigo Active Condition [facility] Actinic Keratosis (ICD-9-CM 702.0) Inactive Condition 07/30/2010 [facility] Osteoarthritis Inactive Condition 07/30/2010 [facility] Diagnosis: ICD-10-CM F33.9 Major depressive disorder, recurrent, unspecified Active Diagnosis [facility] Diagnosis: ICD-10-CM M81.0 Age-related osteoporosis w/o current pathological fracture Active Diagnosis [facility] Diagnosis: ICD-10-CM M75.41 Impingement syndrome of right shoulder Active Diagnosis [facility] Diagnosis: ICD-10-CM M54.9 Dorsalgia, unspecified Active Diagnosis [facility] Diagnosis: ICD-10-CM L57.0 Actinic keratosis Active Diagnosis [facility] Diagnosis: ICD-10-CM M75.51 Bursitis of right shoulder Active Diagnosis [facility] Diagnosis: ICD-10-CM Z46.0 Encounter for fit/adjst of spectacles and contact lenses Active Diagnosis [facility] Diagnosis: ICD-10-CM 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, right eye, intermed dry stage Active Diagnosis [facility] Diagnosis: ICD-10-CM M06.9 Rheumatoid arthritis, unspecified Active Diagnosis [facility] Diagnosis: ICD-10-CM R22.30 Localized swelling, mass and lump, unspecified upper limb Active Diagnosis [facility] Diagnosis: ICD-10-CM R60.0 Localized edema Active Diagnosis [facility] Diagnosis: ICD-10-CM S41.111A Laceration w/o foreign body of right upper arm, init encntr Active Diagnosis [facility] Diagnosis: ICD-10-CM Z04.9 Encounter for examination and observation for unsp reason Active Diagnosis [facility] Diagnosis: ICD-10-CM F33.0 Major depressive disorder, recurrent, mild Active Diagnosis [facility] Diagnosis: ICD-10-CM E29.1 Testicular hypofunction Active Diagnosis [facility] Diagnosis: ICD-10-CM Z85.828 Personal history of other malignant neoplasm of skin Active Diagnosis [facility] Diagnosis: ICD-10-CM I35.9 Nonrheumatic aortic valve disorder, unspecified Active Diagnosis [facility] Diagnosis: ICD-10-CM E11.8 Type 2 diabetes mellitus with unspecified complications Active Diagnosis [facility] Diagnosis: ICD-10-CM I10 Essential (primary) hypertension Active Diagnosis [facility] Diagnosis: ICD-10-CM 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 [facility] Diagnosis: ICD-10-CM Z04.89 Encounter for examination and observation for oth reasons Active Diagnosis [facility] Diagnosis: ICD-10-CM Z23 Encounter for immunization Active Diagnosis [facility] Diagnosis: ICD-10-CM Z46.1 Encounter for fitting and adjustment of hearing aid Active Diagnosis [facility] Diagnosis: ICD-10-CM 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, bilateral, early dry stage Active Diagnosis [facility] Diagnosis: ICD-10-CM H35.3111 Nexdtve age-related mclr degn, right eye, early dry stage Active Diagnosis [facility] Diagnosis: ICD-10-CM S41.101D Unspecified open wound of right upper arm, subs encntr Active Diagnosis [facility] Diagnosis: ICD-10-CM S41.101A Unspecified open wound of right upper arm, initial encounter Active Diagnosis [facility] Diagnosis: ICD-10-CM Z95.2 Presence of prosthetic heart valve Active Diagnosis [facility] Medications Combined list of outpatient medications from Department of Defense and Veterans Affairs facilities.Medications provided include 1) outpatient medications from the last 15 months, and 2) patient-reported medications. Medication Details Route Status Patient Instructions Prescription Expires Prescription Number Last Dispense Date Ordering Provider Order Date Order Qty Source ACETAMINOPH EN TAB TAKE BY MOUTH ONCE DAILY NEEDED ORAL ACTIVE [facility]I [facility] AMLODIPINE BESYLATE 2.5MG TAB TAKE ONE TABLET BY MOUTH ONCE DAILY ORAL ACTIVE TOÑO CAI 2023 [facility] AMLODIPINE BESYLATE 5MG TAB TAKE ONE TABLET BY MOUTH ONCE DAILY FOR BLOOD PRESSURE /HEART, DO NOT TAKE WITH GRAPEFRU IT JUICE ORAL 07/02/2023 [id number] 3 HOLLIS WESTON 2022 30 [facility] ASPIRIN 81MG TAB,EC TAKE ONE TABLET BY MOUTH ONCE DAILY ORAL ACTIVE TOÑO CAI 2023 [facility] ATORVASTATI N CA 80MG TAB TAKE ONE-HALF TABLET BY MOUTH ONCE DAILY ORAL SUSPEND ED 02/27/2025 [id number] 5 CUELLO,DC ICE 2023 45 [facility] ATORVASTATI N CA 80MG TAB TAKE ONE-HALF TABLET BY MOUTH ONCE DAILY ORAL DISCONT INUED 04/26/2024 [id number] 4 CUELLO,DC ICE 2022 45 [facility] CALCIUM 200MG (CA CITRATE-950 MG) TAB TAKE FOUR TABLETS BY MOUTH TWICE DAILY ORAL ACTIVE 11/27/2024 [id number] 4 [place] ICE 2023 800 [facility] CALCIUM 200MG (CA CITRATE-950 MG) TAB TAKE FOUR TABLETS BY MOUTH TWICE DAILY ORAL DISCONT INUED 04/26/2024 [id number] 4 [place] ICE 2022 720 [facility] CHOLECALCIF DERECK 50MCG (2,000UNIT) TAB TAKE ONE TABLET BY MOUTH ONCE DAILY ORAL ACTIVE TAN [address] [facility] CITALOPRAM HYDROBROMID E 10MG TAB TAKE ONE-HALF TABLET BY MOUTH ONCE DAILY FOR DEPRESSI ON AND ANXIETY ORAL DISCONT INUED BY PROVIDE R 02/28/2025 [id number] KALLIE HARPER UN 2023 45 [facility] CITALOPRAM HYDROBROMID E 20MG TAB TAKE ONE-HALF TABLET BY MOUTH ONCE DAILY FOR MOOD ORAL DISCONT INUED (EDIT) 10/10/2024 [id number] 4 KALLIE HARPER UN 2023 45 [facility] CITALOPRAM HYDROBROMID E 20MG TAB TAKE ONE-HALF TABLET BY MOUTH ONCE DAILY FOR MOOD ORAL DISCONT INUED 09/29/2023 [id number] KALLIE HARPER 2022 45 [facility] CYCLOBENZAP RINE HCL 10MG TAB TAKE ONE TABLET BY MOUTH TWICE DAILY ORAL ACTIVE CUELLO,AL ICE 2022 [facility] DENOSUMAB 60MG/ML INJ,SYRINGE ,1ML INJECT 60MG/1ML SUBCUTAN EOUSLY ONE TIME FOR OSTEOPOR OSIS SUBCUT ANEOUS 05/30/2024 [id number] 4 CUELLO,AL ICE 2023 1 [facility] DENOSUMAB 60MG/ML INJ,SYRINGE ,1ML INJECT 60MG/1ML SUBCUTAN EOUSLY ONE TIME FOR OSTEOPOR OSIS SUBCUT ANEOUS 11/17/2023 [id number] 4 CUELLO,AL ICE 2023 1 [facility] DENOSUMAB 60MG/ML INJ,SYRINGE ,1ML INJECT 60MG/1ML SUBCUTAN EOUSLY ONE TIME FOR OSTEOPOR OSIS SUBCUT ANEOUS 05/01/2023 [id number] 3 CUELLO,AL ICE 2022 1 [facility] DOCUSATE NA 100MG CAP TAKE 1 CAPSULE BY MOUTH TWICE DAILY ORAL ACTIVE TOÑO CAI 2023 [facility] FUROSEMIDE 20MG TAB TAKE ONE TABLET BY MOUTH ONCE DAILY ORAL ACTIVE TOÑO CAI 2023 [facility] GABAPENTIN 600MG TAB TAKE ONE TABLET BY MOUTH THREE TIMES A DAY ORAL 10/09/2023 [id number] GAGANDEEP COOPER 2023 270 [facility] GLUCOSE 4GM TAB,CHEW CHEW ONE TABLET BY MOUTH EVERY DAY NEEDED FOR LOW BLOOD SUGAR ORAL ACTIVE 04/03/2025 [id number] 4 TOÑO CAI 2023 20 [facility] HYDROXYCHLO ROQUINE SO4 200MG TAB TAKE TWO TABLETS BY MOUTH ONCE DAILY 5 DAYS A WEEK, AND 1 TABLET DAILY 2 DAYS A WEEK. ORAL ACTIVE 08/19/2024 [id number] 4 GAGANDEEP COOPER 2023 [facility] HYDROXYCHLO ROQUINE SO4 200MG TAB TAKE ONE TABLET BY MOUTH ONCE DAILY [facility] 10/10/2024 [id number] GAGANDEEP COOPER 2023 90 [facility] HYDROXYCHLO ROQUINE SO4 200MG TAB TAKE ONE TABLET BY MOUTH ONCE DAILY [facility] 02/11/2024 [id number] 3 GAGANDEEP COOPER 2022 90 [facility] INSULIN,ASP ART,HUMAN 100 UNT/ML INJ INJECT 80 UNITS SUBCUTAN EOUSLY EVERY DAY DIRECTED FOR USE WITH CONTINUO US SUBCUTAN EOUS INSULIN INFUSION DEVICE SUBCUT ANEOUS ACTIVE 09/01/2024 [id number] 4 TOÑO CAI 2023 8 [facility] INSULIN,ASP ART,HUMAN 100 UNT/ML INJ INJECT 80 UNITS SUBCUTAN EOUSLY EVERY DAY DIRECTED FOR USE WITH CONTINUO US SUBCUTAN EOUS INSULIN INFUSION DEVICE SUBCUT ANEOUS 04/17/2024 [id number] 4 TOÑO CAI 2022 8 [facility] KETOCONAZOL E 2% CREAM,TOP APPLY A THIN LAYER TOPICALL Y TWICE DAILY RASH APPLY TO AFFECTED AREAS ON FACE TWICE DAILY FOR 4 WEEKS, THEN NEEDED TOPICA L ACTIVE 07/13/2024 [id number] 4 VEGA PENA 2023 120 [facility] KETOCONAZOL E 2% SHAMPOO SHAMPOO SMALL AMOUNT TOPICALL Y TWICE A WEEK NEEDED APPLY FOR 8 WEEKS, THEN NEEDED TOPICA L ACTIVE 07/13/2024 [id number] 4 VEGA PENA 2023 240 [facility] LEFLUNOMIDE 10MG TAB TAKE ONE TABLET BY MOUTH ONCE DAILY FOR 14 DAYS, THEN TAKE TWO TABLETS ONCE DAILY ORAL DISCONT INUED 03/26/2025 [id number] 4 GAGANDEEP COOPER 2023 60 [facility] LEFLUNOMIDE 20MG TAB TAKE ONE TABLET BY MOUTH ONCE DAILY ORAL ACTIVE 07/29/2024 [id number] GAGANDEEP COOPER 2023 90 [facility] LOSARTAN POTASSIUM 100MG TAB TAKE ONE TABLET BY MOUTH DAILY ORAL ACTIVE TOÑO CAI 2011 [facility] MULTIVIT/OP HTH AREDS2/LUTE IN/ZEAXANTH IN CAP/TAB TAKE 1 CAPSULE BY MOUTH TWICE DAILY IN THE MORNING AND EVENING, WITH FOOD ORAL ACTIVE 04/30/2025 [id number] TOÑO CAI 2023 120 [facility] MULTIVIT/OP HTH AREDS2/LUTE IN/ZEAXANTH IN CAP/TAB TAKE 1 CAPSULE BY MOUTH TWICE DAILY IN THE MORNING AND EVENING, WITH FOOD ORAL DISCONT INUED 03/29/2024 [id number] 4 Garcia VLALADARES 2022 120 [facility] OMEPRAZOLE 20MG CAP,EC TAKE 1 CAPSULE BY MOUTH EVERY DAY ORAL ACTIVE ROLAND ACOSTA 2008 [facility] OXYCODONE HCL 5MG TAB TAKE ONE TABLET BY MOUTH EVERY 6 HOURS NEEDED FOR SEVERE PAIN ORAL 03/19/2024 [id number] Ankit STODDARD 2023 16 [facility] OXYCODONE HCL 5MG/ACETAMI NOPHEN 325MG TAB TAKE 1 TABLET BY MOUTH EVERY 6 HOURS NEEDED FOR PAIN ORAL 01/31/2024 [id number] 4 ISABELLE ARREDONDO 2023 5 [facility] PILOCARPINE HCL 5MG TAB TAKE ONE TABLET BY MOUTH TWICE DAILY ORAL ACTIVE DOMINGOTAN LACEY CALEB 2020 [facility] PREDNISONE 10MG TAB TAKE ONE TABLET BY MOUTH ONCE DAILY ORAL DISCONT INUED 07/09/2024 [id number] GAGANDEEP COOPER HAMED M 2023 90 [facility] PREDNISONE 10MG TAB TAKE ONE TABLET BY MOUTH ONCE DAILY ORAL DISCONT INUED 01/07/2024 [id number] 4 TALGAGANDEEP LUNDBERG HAMED M 2023 7 [facility] PREDNISONE 1MG TAB TAKE FOUR TABLETS BY MOUTH ONCE DAILY ORAL DISCONT INUED 02/26/2025 [id number] GAGANDEEP COOPER HAMED M 2023 120 [facility] PREDNISONE 1MG TAB TAKE FOUR TABLETS BY MOUTH ONCE DAILY ORAL DISCONT INUED 10/16/2024 [id number] 4 GAGANDEEP COOPER HAMED M 2023 120 [facility] PREDNISONE 1MG TAB TAKE ONE TABLET BY MOUTH ONCE DAILY ORAL DISCONT INUED 06/21/2024 [id number] GAGANDEEP COOPER HAMED M 2023 60 [facility] PREDNISONE 1MG TAB TAKE 1 MG TABLETS BY MOUTH ONCE DAILY IN COMBINAT ION WITH 5MG TABLETS TO TAKE 9MG DAILY FOR 2 WEEKS, THEN REDUCE DOSE BY 1 MG EVERY 2 WEEKS ORAL DISCONT INUED 06/27/2023 [id number] TALAATMO HAMED M 2022 140 [facility] PREDNISONE 2.5MG TAB TAKE THREE TABLETS BY MOUTH ONCE DAILY ORAL ACTIVE 04/30/2025 [id number] TALTAMIKAMO HAMED M 2023 90 [facility] PREDNISONE 5MG TAB TAKE 1 TABLET (5 MG) BY MOUTH ONCE DAILY IN COMBINAT ION WITH 1MG TABLETS TO TAKE 9 MG DAILY FOR 2 WEEKS, THEN REDUCE BY 1 MG EVERY 2 WEEKS ORAL 07/31/2023 [id number] GAGANDEEP COOPER 2022 90 [facility] TAMSULOSIN HCL 0.4MG CAP TAKE TWO CAPSULES BY MOUTH AT BEDTIME ORAL SUSPEND ED 01/22/2025 [id number] 5 EM DEAN 2023 180 [facility] TAMSULOSIN HCL 0.4MG CAP TAKE ONE CAPSULE BY MOUTH AT BEDTIME FOR ENLARGED PROSTATE ORAL DISCONT INUED 10/10/2024 [id number] 4 TOÑO CAI 2023 90 [facility] TAMSULOSIN HCL 0.4MG CAP TAKE ONE CAPSULE BY MOUTH AT BEDTIME FOR ENLARGED PROSTATE ORAL DISCONT INUED (EDIT) 04/12/2024 [id number] TOÑO CAI 2022 30 [facility] TESTOSTERON E CYPIONATE 200MG/ML INJ,1ML (IN OIL) INJECT 0.3ML (60MG) INTRAMUS CULARLY EVERY 7 DAYS FOR LOW TESTOSTE JAGDISH INTRAM USCULA R DISCONT INUED BY PROVIDE R 01/26/2024 [id number] 4 CUELLO,AL ICE 2023 4 [facility] TESTOSTERON E CYPIONATE 200MG/ML INJ,1ML (IN OIL) INJECT 0.3ML (60MG) INTRAMUS CULARLY EVERY 7 DAYS FOR LOW TESTOSTE JAGDISH INTRAM USCULA R DISCONT INUED 10/28/2023 [id number] CUELLO,AL ICE 2022 4 [facility] TOCILIZUMAB 162MG/0.9ML INJ,SYRINGE ,0.9ML INJECT 162MG SUBCUTAN EOUSLY EVERY 2 WEEKS SUBCUT ANEOUS ACTIVE 04/12/2025 [id number] 4 GAGANDEEP COOPER 2023 2 [facility] TOCILIZUMAB 162MG/0.9ML INJ,SYRINGE ,0.9ML INJECT 162MG SUBCUTAN EOUSLY EVERY 2 WEEKS SUBCUT ANEOUS DISCONT INUED 11/17/2024 [id number] 4 SARIAH [place] 2023 2 [facility] TOCILIZUMAB 162MG/0.9ML INJ,SYRINGE ,0.9ML INJECT 162MG SUBCUTAN EOUSLY EVERY 2 WEEKS SUBCUT ANEOUS DISCONT INUED 08/28/2024 [id number] 4 GAGANDEEP COOPER M 2023 2 [facility] TOCILIZUMAB 162MG/0.9ML INJ,SYRINGE ,0.9ML INJECT 162MG SUBCUTAN EOUSLY EVERY 2 WEEKS SUBCUT ANEOUS DISCONT INUED 06/07/2024 [id number] 4 GAGANDEEP COOPER M 2022 2 [facility] TOCILIZUMAB 162MG/0.9ML INJ,SYRINGE ,0.9ML INJECT 162MG SUBCUTAN EOUSLY EVERY 2 WEEKS SUBCUT ANEOUS DISCONT INUED 06/14/2023 [id number] 3 SARIAH [place] 2022 1 [facility] TOCILIZUMAB 162MG/0.9ML INJ,SYRINGE ,0.9ML INJECT 162MG SUBCUTAN EOUSLY EVERY 2 WEEKS FOR RHEUMATO ID ARTHRITI S SUBCUT ANEOUS DISCONT INUED 02/03/2024 [id number] 3 GAGANDEEP COOPER M 2022 2 [facility] Allergies, Adverse Reactions, Alerts Combined list of allergies from Department of Defense and Veterans Affairs facilities. It does not include entries that were removed or entered in error. Substance Category Reaction Severity Reaction type Status Date Reported Comments Source METFORMIN Propensity to adverse reactions to drug (finding) active 8 [facility] PENICILLIN Propensity to adverse reactions to drug (finding) HIVES active 2 [facility] ZOSYN Propensity to adverse reactions to drug (finding) active 9 [facility] Immunizations Combined list of available immunizations from the Department of Defense and Veterans Affairs facilities. Immunization Series Date Given Administered By Site Reaction Lot Number CVX Code Drug Front End Engineer Status Comments Source INFLUENZA, UNSPECIFIED FORMULATION 2023 88 complet ed [facility] COVID-19 (MODERNA), MRNA, LNP-S, PF, 50 MCG/0.5 ML (AGES 12+ YEARS) 1 2022 ZA THAO HY E RIGHT DELTO ID [id number] 312 complet ed [facility] INFLUENZA, HIGH-DOSE, QUADRIVALENT 2022 ZA THAO HY E LEFT DELTO ID [id number] 197 complet ed [facility] COVID-19 (MODERNA), MRNA, LNP-S, BIVALENT BOOSTER, PF, 50 MCG/0.5 ML OR 25MCG/0.25 ML DOSE 4 2021 229 complet ed [facility] INFLUENZA, UNSPECIFIED FORMULATION 2021 88 complet ed [facility] TD (ADULT), 5 LF TETANUS TOXOID, PRESERVATIVE FREE, ADSORBED 2021 113 complet ed [facility] ZOSTER RECOMBINANT 2 2021 187 complet ed [facility] COVID-19 (MODERNA), MRNA, LNP-S, PF, 100 MCG/0.5ML DOSE OR 50 MCG/0.25ML DOSE 3 2021 207 complet ed [facility] INFLUENZA, UNSPECIFIED FORMULATION 2020 88 complet ed [facility] COVID-19 (MODERNA), MRNA, LNP-S, PF, 100 MCG/0.5 ML DOSE 2 2020 207 complet ed MOD; [id number]; 1 [facility] COVID-19 (MODERNA), MRNA, LNP-S, PF, 100 MCG/0.5 ML DOSE 1 2020 207 complet ed MOD; [id number]; 1 [facility] ZOSTER RECOMBINANT 1 2019 187 complet ed [facility] INFLUENZA, SEASONAL, INJECTABLE 2018 141 complet ed [facility] INFLUENZA, SEASONAL, INJECTABLE 2017 141 complet ed [facility] INFLUENZA, SEASONAL, INJECTABLE 2016 141 complet ed Site: Left Deltoid [facility] FLU,3 YRS (HISTORICAL) 2015 88 complet ed [facility] FLU,3 YRS (HISTORICAL) 2014 88 complet ed [facility] PNEUMOCOCCAL CONJUGATE PCV 13 2014 133 complet ed [facility] FLU,3 YRS (HISTORICAL) 2012 88 complet ed [facility] DTAP, UNSPECIFIED FORMULATION 2012 107 complet ed [facility] FLU,3 YRS (HISTORICAL) 2011 88 complet ed [facility] TD(ADULT) UNSPECIFIED FORMULATION 2010 139 complet ed Site: Left Deltoid [facility] FLU,3 YRS (HISTORICAL) 2010 88 complet ed stated by [facility] ZOSTER LIVE 2010 CHRISTOPHER BLACKMAN 121 complet ed [facility] FLU,3 YRS (HISTORICAL) 2009 88 complet ed [facility] NOVEL INFLUENZA-H1N 1-09, ALL FORMULATIONS 2009 128 complet ed [facility] PNEUMOCOCCAL, UNSPECIFIED FORMULATION 2009 109 complet ed doesn't remember date -- check with community pcp [facility] FLU,3 YRS (HISTORICAL) 2008 88 complet ed [facility] FLU,3 YRS (HISTORICAL) 2007 88 complet ed [facility] FLU,3 YRS (HISTORICAL) 2006 88 complet ed [facility] Results Combined list of recent chemistry, hematology and other laboratory results from Department of Defense and Veterans Affairs, ranging from 15 months to all on record, depending upon the facility. Order Name Results Value Reference Range Date Interpretation Specimen Comments Source HEMOGLOBI N A1C PANEL HEMOGLOBIN A1C/HEMOGLO BIN.TOTAL IN BLOOD BY HPLC 6.5 4.0 - 5.6 06/04 H Specimen Type: BLOOD Comment: Values obtained from A1C measurement s can vary. For atypical A1C assays, a reported value of 7.0 could actually be between 6.72 and 7.28 if measured by a reference method. A reported value of 9.0 could actually be between 8.73 and 9.27. Ref: [email or web address]://www. ngsp.org/[place] Pdata.asp Ordering Provider: Jameson CAI Report Released Date/Time: May 29, 2024 06:36 PM Reporting Lab: [facility] [place] [address] [address] Performing Lab: [facility] [place] [facility] [address] [facility] [address] [facility] [facility] MICROALBU MIN CREATININ E RATIO PANEL MICROALBUMI N/CREATININ E [MASS RATIO] IN URINE 36.0 mg/g 0 - 29.9 06/04 H Specimen Type: URINE No comment entered. Ordering Provider: Jameson CAI Report Released Date/Time: May 29, 2024 06:36 PM Reporting Lab: [facility] [place] [address] [address] Performing Lab: [facility] [place] [facility] [address] [facility] [address] [facility] [facility] MICROALBU MIN CREATININ E RATIO PANEL MICROALBUMI N [MASS/VOLUM E] IN URINE 2.8 mg/dL 06/04 Specimen Type: URINE No comment entered. Ordering Provider: Jameson CAI Report Released Date/Time: May 29, 2024 06:36 PM Reporting Lab: [facility] [place] [facility] [address] [facility] [address] Performing Lab: [facility] [place] [facility] [address] [facility] [address] [facility] [facility] MICROALBU MIN CREATININ E RATIO PANEL CREATININE [MASS/VOLUM E] IN URINE 77.84 mg/dL 06/04 Specimen Type: URINE No comment entered. Ordering Provider: Jameson CAI Report Released Date/Time: May 29, 2024 06:36 PM Reporting Lab: [facility] [place] [facility] [address] [facility] [address] Performing Lab: [facility] [place] [facility] [address] [facility] [address] [facility] LIPID PANEL, NON FASTING CHOLESTEROL [MASS/VOLUM E] IN SERUM OR PLASMA 151 mg/dL 06/04 Specimen Type: SERUM No comment entered. Ordering Provider: Jameson CAI Report Released Date/Time: May 29, 2024 06:36 PM Reporting Lab: [facility] [place] [facility] [address] [facility] [address] Performing Lab: [facility] [place] [address] [address] [facility] LIPID PANEL, NON FASTING TRIGLYCERID E [MASS/VOLUM E] IN SERUM OR PLASMA 146 mg/dL 0 - 150 06/04 Specimen Type: SERUM No comment entered. Ordering Provider: Jameson CAI Report Released Date/Time: May 29, 2024 06:36 PM Reporting Lab[facility] [place] [facility] [address] [facility] [address] Performing Lab: [facility] [place] [facility] [address] [facility] [address] [facility] LIPID PANEL, NON FASTING CHOLESTEROL IN LDL [MASS/VOLUM E] IN SERUM OR PLASMA BY CALCULATION 73 mg/dL 0 - 129 06/04 Specimen Type: SERUM No comment entered. Ordering Provider: Jameson CAI Report Released Date/Time: May 29, 2024 06:36 PM Reporting Lab: [facility] [place] [facility] [address] [facility] [address] Performing Lab: [facility] [address] [facility] [address] [facility] LIPID PANEL, NON FASTING CHOLESTEROL .TOTAL/CHOL ESTEROL IN HDL [MASS RATIO] IN SERUM OR PLASMA 3.1 06/04 Specimen Type: SERUM No comment entered. Ordering Provider: Jameson CAI Report Released Date/Time: May 29, 2024 06:36 PM Reporting Lab: [facility] [place] [facility] [address] [facility] [address] Performing Lab: [facility] [place] [facility] [address] [facility] [address] [facility] [place] [facility] LIPID PANEL, NON FASTING CHOLESTEROL IN HDL [MASS/VOLUM E] IN SERUM OR PLASMA 49 mg/dL 40 - 60 06/04 Specimen Type: SERUM No comment entered. Ordering Provider: Jameson CAI Report Released Date/Time: May 29, 2024 06:36 PM Reporting Lab: [facility] [place] [facility] [address] [facility] [address] Performing Lab: [facility] [place] [facility] [address] [facility] [address] [facility] [place] [facility] LIVER FUNCTION PROTEIN [MASS/VOLUM E] IN SERUM OR PLASMA 5.5 g/dL 6.0 - 8.3 06/04 L Specimen Type: SERUM No comment entered. Ordering Provider: Jameson CAI Report Released Date/Time: May 29, 2024 06:36 PM Reporting Lab: [facility] [place] [facility] [address] [facility] [address] Performing Lab: [facility] [place] [facility] [address] [facility] [address] [facility] LIVER FUNCTION ALBUMIN [MASS/VOLUM E] IN SERUM OR PLASMA 3.7 g/dL 3.5 - 5.0 06/04 Specimen Type: SERUM No comment entered. Ordering Provider: Jameson CAI Report Released Date/Time: May 29, 2024 06:36 PM Reporting Lab: [facility] [place] [facility] [address] [facility] [address] Performing Lab: [facility] [place] [facility] [address] [facility] [address] [facility] [place] [facility] LIVER FUNCTION ALKALINE PHOSPHATASE [ENZYMATIC ACTIVITY/VO LUME] IN SERUM OR PLASMA 78 U/L 40 - 150 06/04 Specimen Type: SERUM No comment entered. Ordering Provider: Jameson CAI Report Released Date/Time: May 29, 2024 06:36 PM Reporting Lab: [facility] [place] [facility] [address] [facility] [address] Performing Lab: [facility] [place] [facility] [address] [facility] [address] [facility] [place] [facility] LIVER FUNCTION ASPARTATE AMINOTRANSF ERASE [ENZYMATIC ACTIVITY/VO LUME] IN SERUM OR PLASMA 20 U/L 5 - 34 06/04 Specimen Type: SERUM No comment entered. Ordering Provider: Jameson CAI Report Released Date/Time: May 29, 2024 06:36 PM Reporting Lab: [facility] [place] [facility] [address] [facility] [address] Performing Lab: [facility] [place] [address] [address] [facility] [place] [facility] LIVER FUNCTION ALANINE AMINOTRANSF ERASE [ENZYMATIC ACTIVITY/VO LUME] IN SERUM OR PLASMA 19 U/L 06/04 Specimen Type: SERUM No comment entered. Ordering Provider: Jameson CAI Report Released Date/Time: May 29, 2024 06:36 PM Reporting Lab: [facility] [place] [address] [address] Performing Lab: [facility] [place] [address] [address] [facility] LIVER FUNCTION BILIRUBIN.T OTAL [MASS/VOLUM E] IN SERUM OR PLASMA 1.3 mg/dL 0.2 - 1.2 06/04 H Specimen Type: SERUM No comment entered. Ordering Provider: Jameson CAI Report Released Date/Time: May 29, 2024 06:36 PM Reporting Lab: [facility] [place] [address] [address] Performing Lab: [facility] [place] [address] [address] [facility] LIVER FUNCTION BILIRUBIN.D IRECT [MASS/VOLUM E] IN SERUM OR PLASMA 0.5 mg/dL 0 - 0.5 06/04 Specimen Type: SERUM No comment entered. Ordering Provider: Jameson CAI Report Released Date/Time: May 29, 2024 06:36 PM Reporting Lab: [facility] [place] [address] [address] Performing Lab: [facility] [place] [address] [address] [facility] [place] [facility] BASIC METABOLIC PANEL (non-fast ing) UREA NITROGEN [MASS/VOLUM E] IN SERUM OR PLASMA 19 mg/dL 7 - 25 06/04 Specimen Type: SERUM No comment entered. Ordering Provider: Jameson CAI Report Released Date/Time: May 29, 2024 06:36 PM Reporting Lab: [facility] [place] [address] Performing Lab: [facility] [address] [facility] [address] [facility] BASIC METABOLIC PANEL (non-fast ing) GLUCOSE [MASS/VOLUM E] IN SERUM OR PLASMA 187 mg/dL 65 - 100 06/04 H Specimen Type: SERUM No comment entered. Ordering Provider: Jameson CAI Report Released Date/Time: May 29, 2024 06:36 PM Reporting Lab: [facility] [address] [facility] [address] Performing Lab: [facility] [address] [facility] [address] [employer] BASIC METABOLIC PANEL (non-fast ing) SODIUM [MOLES/VOLU ME] IN SERUM OR PLASMA 140 mmol/L 135 - 145 06/04 Specimen Type: SERUM No comment entered. Ordering Provider: Jameson CAI Report Released Date/Time: May 29, 2024 06:36 PM Reporting Lab: [facility] [address] [facility] [address] Performing Lab: [facility] [address] [facility] [address] [employer] BASIC METABOLIC PANEL (non-fast ing) POTASSIUM [MOLES/VOLU ME] IN SERUM OR PLASMA 3.8 mmol/L 3.5 - 5.0 06/04 Specimen Type: SERUM No comment entered. Ordering Provider: Jameson CAI Report Released Date/Time: May 29, 2024 06:36 PM Reporting Lab: [facility] [address] [facility] [address] Performing Lab: [facility] [address] [facility] [address] [employer] BASIC METABOLIC PANEL (non-fast ing) CHLORIDE [MOLES/VOLU ME] IN SERUM OR PLASMA 103 mmol/L 100 - 110 06/04 Specimen Type: SERUM No comment entered. Ordering Provider: Jameson CAI Report Released Date/Time: May 29, 2024 06:36 PM Reporting Lab: [facility] [address] Performing Lab: [facility]N [address] [address] [facility] BASIC METABOLIC PANEL (non-fast ing) CARBON DIOXIDE, TOTAL [MOLES/VOLU ME] IN SERUM OR PLASMA 25 meq/L 20 - 30 06/04 Specimen Type: SERUM No comment entered. Ordering Provider: Jameson CAI Report Released Date/Time: May 29, 2024 06:36 PM Reporting Lab: [facility] [address] [address] Performing Lab: [facility]ITALRB[facility]TRN [address] [address] [facility]N [facility] BASIC METABOLIC PANEL (non-fast ing) CREATININE [MASS/VOLUM E] IN SERUM OR PLASMA 0.97 mg/dL 0.50 - 1.40 06/04 Specimen Type: SERUM No comment entered. Ordering Provider: Jameson CAI Report Released Date/Time: May 29, 2024 06:36 PM Reporting Lab: [facility] [address] [address] Performing Lab: [facility] [address] [facility]N [facility] BASIC METABOLIC PANEL (non-fast ing) GLOMERULAR FILTRATION RATE/1.73 SQ M.PREDICTED [VOLUME RATE/AREA] IN SERUM, PLASMA OR BLOOD BY CREATININE- BASED FORMULA (CKD-EPI 2020) 76 mL/min 60 06/04 Specimen Type: SERUM No comment entered. Ordering Provider: Jameson CAI Report Released Date/Time: May 29, 2024 06:36 PM Reporting Lab: [facility] [address] Performing Lab: [facility] [place] [facility] [address] [facility] [address] [facility] [place] [facility] TSH THYROTROPIN [UNITS/VOLU ME] IN SERUM OR PLASMA 1.78 u[IU]/ mL 0.35 - 5.00 06/04 Specimen Type: SERUM No comment entered. Ordering Provider: Jameson CAI Report Released Date/Time: May 29, 2024 06:36 PM Reporting Lab: [facility] [place] [facility] [address] [facility] [address] Performing Lab: [facility] [place] [address] [address] [facility] [place] [facility] TESTOSTER ONE, TOTAL (WHV) TESTOSTERON E [MASS/VOLUM E] IN SERUM OR PLASMA 44.33 ng/dL 220.00 - 892.00 05/08 L Specimen Type: SERUM No comment entered. Ordering Provider: Jameson CAI Report Released Date/Time: Aug 11, 2023 11:52 AM Reporting Lab: [facility] [place] [facility] [address] [facility] [address] Performing Lab: [facility] [place] [address] [address] [facility] [place] [facility] CBC LEUKOCYTES [#/VOLUME] IN BLOOD BY AUTOMATED COUNT 4.08 10*3/u L 4.50 - 11.00 05/08 L Specimen Type: BLOOD No comment entered. Ordering Provider: Jameson CAI Report Released Date/Time: Aug 11, 2023 11:52 AM Reporting Lab: [facility] [place] [address] [address] Performing Lab: [facility] [place] [address] [address] [facility] [place] [facility] CBC ERYTHROCYTE S [#/VOLUME] IN BLOOD BY AUTOMATED COUNT 4.53 10*6/u L 4.23 - 5.66 05/08 Specimen Type: BLOOD No comment entered. Ordering Provider: Jameson CAI Report Released Date/Time: Aug 11, 2023 11:52 AM Reporting Lab: [facility] [place] [facility] [address] [facility] [address] Performing Lab: [facility] [place] [facility] [address] [facility] [address] [facility] [place] [facility] CBC HEMOGLOBIN [MASS/VOLUM E] IN BLOOD 13.1 g/dL 12.8 - 17 05/08 Specimen Type: BLOOD No comment entered. Ordering Provider: Jameson CAI Report Released Date/Time: Aug 11, 2023 11:52 AM Reporting Lab: [facility] [place] [facility] [address] [facility] [address] Performing Lab: [facility] [place] [address] [address] [facility] [place] [facility] CBC HEMATOCRIT [VOLUME FRACTION] OF BLOOD BY AUTOMATED COUNT 39.9 39.2 - 50.4 05/08 Specimen Type: BLOOD No comment entered. Ordering Provider: Jameson CAI Report Released Date/Time: Aug 11, 2023 11:52 AM Reporting Lab: [facility] [place] [facility] [address] [facility] [address] Performing Lab: [facility] [place] [address] [address] [facility] [place] [facility] CBC MCV [ENTITIC VOLUME] BY AUTOMATED COUNT 88.1 fL 82 - 99 05/08 Specimen Type: BLOOD No comment entered. Ordering Provider: Jameson CAI Report Released Date/Time: Aug 11, 2023 11:52 AM Reporting Lab: [facility] [place] [facility] [address] [facility] [address] Performing Lab: [facility] [place] [address] [address] [facility] [place] [facility] CBC MCHC [MASS/VOLUM E] BY AUTOMATED COUNT 32.8 g/dL 30.8 - 35.1 05/08 Specimen Type: BLOOD No comment entered. Ordering Provider: Jameson CAI Report Released Date/Time: Aug 11, 2023 11:52 AM Reporting Lab: [facility] [place] [facility] [address] [facility] [address] Performing Lab: [facility] [place] [facility] [address] [facility] [address] [facility] [place] [facility] CBC PLATELETS [#/VOLUME] IN BLOOD BY AUTOMATED COUNT 130 10*3/u L 140 - 360 05/08 L Specimen Type: BLOOD No comment entered. Ordering Provider: Jameson CAI Report Released Date/Time: Aug 11, 2023 11:52 AM Reporting Lab: [facility] [place] [address] [address] Performing Lab: [facility] [place] [facility] [address] [facility] [address] [facility] [place] [facility] CBC ERYTHROCYTE DISTRIBUTIO N WIDTH [RATIO] BY AUTOMATED COUNT 14.5 12.0 - 16.0 05/08 Specimen Type: BLOOD No comment entered. Ordering Provider: Jameson CAI Report Released Date/Time: Aug 11, 2023 11:52 AM Reporting Lab: [facility] [place] [address] [address] Performing Lab: [facility] [place] [facility] [address] [facility] [address] [facility] [place] [facility] CBC MCH [ENTITIC MASS] BY AUTOMATED COUNT 28.9 pg 26.2 - 32.6 05/08 Specimen Type: BLOOD No comment entered. Ordering Provider: Jameson CAI Report Released Date/Time: Aug 11, 2023 11:52 AM Reporting Lab: [facility] [place] [facility] [address] [facility] [address] Performing Lab: [facility] [place] [facility] [address] [facility] [address] [facility] BASIC METABOLIC PANEL (fasting) UREA NITROGEN [MASS/VOLUM E] IN SERUM OR PLASMA 19 mg/dL 7 - 25 05/08 Specimen Type: SERUM No comment entered. Ordering Provider: Jameson CAI Report Released Date/Time: Aug 11, 2023 11:52 AM Reporting Lab: [facility] [place] [facility] [address] [facility] [address] Performing Lab: [facility] [place] [facility] [address] [facility] [address] [facility] [place] [facility] BASIC METABOLIC PANEL (fasting) GLUCOSE [MASS/VOLUM E] IN SERUM OR PLASMA 216 mg/dL 65 - 100 05/08 H Specimen Type: SERUM No comment entered. Ordering Provider: Jameson CAI Report Released Date/Time: Aug 11, 2023 11:52 AM Reporting Lab: [facility] [place] [address] [address] Performing Lab: [facility] [place] [address] [address] [facility]ITALRL [facility]N [facility] BASIC METABOLIC PANEL (fasting) SODIUM [MOLES/VOLU ME] IN SERUM OR PLASMA 142 mmol/L 135 - 145 05/08 Specimen Type: SERUM No comment entered. Ordering Provider: Jameson CAI Report Released Date/Time: Aug 11, 2023 11:52 AM Reporting Lab: [facility] [place] [facility] [address] [facility] [address] Performing Lab: [facility] [place] [address] [address] [facility] [place] [facility] BASIC METABOLIC PANEL (fasting) POTASSIUM [MOLES/VOLU ME] IN SERUM OR PLASMA 3.5 mmol/L 3.5 - 5.0 05/08 Specimen Type: SERUM No comment entered. Ordering Provider: Jameson CAI Report Released Date/Time: Aug 11, 2023 11:52 AM Reporting Lab: [facility] [address] [facility] [address] Performing Lab: [facility] [place] [facility] [address] [facility] [address] [facility] BASIC METABOLIC PANEL (fasting) CHLORIDE [MOLES/VOLU ME] IN SERUM OR PLASMA 107 mmol/L 100 - 110 05/08 Specimen Type: SERUM No comment entered. Ordering Provider: Jameson CAI Report Released Date/Time: Aug 11, 2023 11:52 AM Reporting Lab: [facility] [place] [facility] [address] [facility] [address] Performing Lab: [facility] [address] [facility] BASIC METABOLIC PANEL (fasting) CARBON DIOXIDE, TOTAL [MOLES/VOLU ME] IN SERUM OR PLASMA 25 meq/L 20 - 30 05/08 Specimen Type: SERUM No comment entered. Ordering Provider: Jameson CAI Report Released Date/Time: Aug 11, 2023 11:52 AM Reporting Lab: [facility] [address] Performing Lab: [facility] [address] [address] [facility] BASIC METABOLIC PANEL (fasting) CREATININE [MASS/VOLUM E] IN SERUM OR PLASMA 0.84 mg/dL 0.50 - 1.40 05/08 Specimen Type: SERUM No comment entered. Ordering Provider: Jameson CAI Report Released Date/Time: Aug 11, 2023 11:52 AM Reporting Lab: [facility] [place] [address] [address] Performing Lab: [facility] [address] [address] [facility] BASIC METABOLIC PANEL (fasting) GLOMERULAR FILTRATION RATE/1.73 SQ M.PREDICTED [VOLUME RATE/AREA] IN SERUM, PLASMA OR BLOOD BY CREATININE- BASED FORMULA (CKD-EPI 2020) 85 mL/min 60 05/08 Specimen Type: SERUM No comment entered. Ordering Provider: Jameson CAI Report Released Date/Time: Aug 11, 2023 11:52 AM Reporting Lab: [facility] [place] [facility] [address] [facility] [address] Performing Lab: [facility] [address] [facility] [address] [facility] LIPID PANEL FASTING CHOLESTEROL [MASS/VOLUM E] IN SERUM OR PLASMA 142 mg/dL 05/08 Specimen Type: SERUM No comment entered. Ordering Provider: Jameson CAI Report Released Date/Time: Aug 11, 2023 11:52 AM Reporting Lab: [facility] [place] [facility] [address] [facility] [address] Performing Lab: [facility] [address] [facility] [address] [facility] LIPID PANEL FASTING TRIGLYCERID E [MASS/VOLUM E] IN SERUM OR PLASMA 179 mg/dL 0 - 150 05/08 H Specimen Type: SERUM No comment entered. Ordering Provider: Jameson CAI Report Released Date/Time: Aug 11, 2023 11:52 AM Reporting Lab: [facility] [place] [address] [address] Performing Lab: [facility] [place] [address] [address] [facility] LIPID PANEL FASTING CHOLESTEROL IN LDL [MASS/VOLUM E] IN SERUM OR PLASMA BY CALCULATION 64 mg/dL 0 - 129 05/08 Specimen Type: SERUM No comment entered. Ordering Provider: Jameson CAI Report Released Date/Time: Aug 11, 2023 11:52 AM Reporting Lab: [facility] [address] Performing Lab: [facility] [address] [facility] LIPID PANEL FASTING CHOLESTEROL .TOTAL/CHOL ESTEROL IN HDL [MASS RATIO] IN SERUM OR PLASMA 3.4 05/08 Specimen Type: SERUM No comment entered. Ordering Provider: Jameson CAI Report Released Date/Time: Aug 11, 2023 11:52 AM Reporting Lab: [facility] [place] [facility] [address] [facility] [address] Performing Lab: [facility] [place] [facility] [address] [facility] [address] [facility] [place] [facility] LIPID PANEL FASTING CHOLESTEROL IN HDL [MASS/VOLUM E] IN SERUM OR PLASMA 42 mg/dL 40 - 60 05/08 Specimen Type: SERUM No comment entered. Ordering Provider: Jameson CAI Report Released Date/Time: Aug 11, 2023 11:52 AM Reporting Lab: [facility] [place] [facility] [address] [facility] [address] Performing Lab: [facility] [place] [facility] [address] [facility] [address] [facility] Vital Signs Combined list of inpatient and outpatient Vital Signs from Department of Defense and Veterans Affairs, ranging from 12 months to all on record, depending upon the facility. Vital Sign Value Date Comments Source SYSTOLIC BLOOD PRESSURE 108 05/29/20 24 11:19:00 [facility] [place] [facility] DIASTOLIC BLOOD PRESSURE 55 024 11:19:00 [facility] [place] [facility] PULSE OXIMETRY 94 05/29/2024 11:19:00 [facility] [place] WEIGHT 173 05/29/2024 11:19:00 [facility] BMI 29kg/m2 05/29/2024 11:19:00 [facility] PAIN 5 05/29/2024 11[facility]19:00 [facility] [place] [facility] HEIGHT 64.5 05/29/2024 11:19:00 [facility] TEMPERATURE 98.1 05/29/2024 11:19:00 [facility] [place] PULSE 68 05/29/2024 11[facility]19:00 [facility] [place] RESPIRATION 16 05/29/2024 11:19:00 [facility] [place] SYSTOLIC BLOOD PRESSURE 130 04/02/20 24 14:02:41 [facility] [place] DIASTOLIC BLOOD PRESSURE 82 024 14:02:41 [facility] [place] PULSE OXIMETRY 97 04/02/2024 14:02:41 [facility] [place] WEIGHT 176 04/02/2024 14:02:41 [facility] BMI 30kg/m2 04/02/2024 14:02:41 [facility] PAIN 8 04/02/2024 14:02:41 [facility] TEMPERATURE 98.4 04/02/2024 14:02:41 [facility] PULSE 83 04/02/2024 14:02:41 [facility] RESPIRATION 16 04/02/2024 14:02:41 [facility] SYSTOLIC BLOOD PRESSURE 124 02/12/20 24 10:00:01 [facility] DIASTOLIC BLOOD PRESSURE 74 024 10:00:01 [facility] PULSE OXIMETRY 96 02/12/2024 10:00:01 [facility] WEIGHT 178 02/12/2024 10:00:01 [facility] BMI 30kg/m2 02/12/2024 10:00:01 [facility] PAIN 0 02/12/2024 10:00:01 [facility] TEMPERATURE 98.4 02/12/2024 10:00:01 [facility] PULSE 88 02/12/2024 10:00:01 [facility] RESPIRATION 16 02/12/2024 10:00:01 [facility] SYSTOLIC BLOOD PRESSURE 116 11/27/19 24 14:00:26 [facility] DIASTOLIC BLOOD PRESSURE 67 024 14:00:26 [facility] PULSE OXIMETRY 97 11/27/2023 14:00:26 [facility] WEIGHT 176 11/27/2023 14:00:26 [facility] BMI 30kg/m2 11/27/2023 14:00:26 [facility] PAIN 2 11/27/2023 14:00:26 [facility] HEIGHT 64.5 11/27/2023 14:00:26 [facility] TEMPERATURE 97.9 11/27/2023 14:00:26 [facility] PULSE 83 11/27/2023 14:00:26 [facility] RESPIRATION 16 11/27/2023 14:00:26 [facility] SYSTOLIC BLOOD PRESSURE 134 11/02/19 24 11:30:41 [facility] DIASTOLIC BLOOD PRESSURE 72 024 11:30:41 [facility] PULSE OXIMETRY 95 11/02/2023 11:30:41 [facility] TEMPERATURE 98.1 11/02/2023 11:30:41 [facility] PULSE 89 11/02/2023 11:30:41 [facility] RESPIRATION 16 11/02/2023 11:30:41 [facility] Encounters Combined list of: 1) Encounters from [facility] facilities going back up to thelast 18 months. 2) Encounters from the Department of Defense facilities going back up to 280 months. Location Location Details Encounter Type Encounter Number Reason For Visit Attending Provider ADM Date DC Date Status Disposition Source [facility] Outpatient Encounter [id number] 12/15 [facility] OFFICE O/P EST SF 10-19 MIN [id number] Diagnos is: ICD-10- CM Z95.2 Presenc e of prosthe tic heart valve<b r/> SERGEJESETOÑO MCARTHUR 01/03 [facility] Outpatient Encounter [id number] 01/05 [facility] Outpatient Encounter [id number] 01/06 [facility] CPTR OPHTH DX IMG POST SEGMT [id number] Diagnos is: ICD-10- CM 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, bilater al, early dry stage<b r/> ANALI VALLADARES JUAN E 01/11 [facility] Outpatient Encounter [id number] 01/11 [facility] EYE EXAM WITH PHOTOS [id number] [id number] Diagnos is: ICD-10- CM 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
GUSTAVOSHANTI Cazares 02/01 [facility] FEE [id number] [id number] Diagnos is: ICD-10- CM F33.0 Major depress marc disorde r, recurre nt, mild
SHANTI CHEN 02/01 [facility] Outpatient Encounter [id number] SHANTI CHEN 02/01 [facility] Outpatient Encounter [id number] 02/02 [facility] Outpatient Encounter [id number] 02/09 [facility] OFF/OP EST MAY X REQ PHY/QHP [id number] [id number] Diagnos is: ICD-10- CM S41.101 A Unspeci fied open wound of right upper arm, initial encount er
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, right eye, early dry stage<b r/> JACQUELYNANALI JUAN E 03/22 [facility] DETERMINE REFRACTIVE STATE [id number] [id number] Diagnos is: ICD-10- CM 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, bilater al, early dry stage<b r/> ANALI VALLADARES E 03/22 [facility] FIT SPECTACLES MULTIFOCAL 12487-9.63 [id number] Diagnos is: ICD-10- CM Z46.0 Encount er for fit/adj st of spectac les and contact lenses< br/> EARLE VAUGHAN 03/22 [facility] OFFICE O/P EST LOW 20-29 MIN [id number] [id number] Diagnos is: ICD-10- CM I10 Essenti al (primar y) hyperte nsion<b r/> TOÑO CAI 03/24 [facility] Outpatient Encounter [id number] 03/24 [facility] Outpatient Encounter [id number] 03/25 [facility] Outpatient Encounter [id number] 03/28 [facility] OFFICE O/P EST LOW 20-29 MIN [id number] [id number] Diagnos is: ICD-10- CM 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
VEGA PENA 04/04 [facility] Outpatient Encounter [id number] 04/17 [facility] HEARING AID REPAIR/MOD IFYING [id number] [id number] Diagnos is: ICD-10- CM Z46.1 Encount er for fitting and adjustm ent of hearing aid<br/ > EVERTON BOYD 04/21 [facility] OFF/OP EST MAY X REQ PHY/QHP 89185-5.63 [id number] Diagnos is: ICD-10- CM Z23 Encount er for immuniz ation<b r/> LIDA THAO MOTHY E 04/21 [facility] OFF/OP EST MAY X REQ PHY/QHP 95261-3.63 [id number] Diagnos is: ICD-10- CM 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
MEREDITHLILI ESPINOHYU N 04/26 [facility] FEE 91407-2.63 [id number] Diagnos is: ICD-10- CM 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, recurre nt, unspeci fied
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<b r/> GDENE ESPANA A 04/26 [facility] CONT GLUC MNTR ANALYSIS I&R 69314-8.63 [id number] Diagnos is: ICD-10- CM E11.8 Type 2 diabete s mellitu s with unspeci fied complic ations< br/> CUELLO,ALI CE 04/26 [facility] OFF/OP EST MAY X REQ PHY/QHP 77376-2.63 [id number] Diagnos is: ICD-10- CM 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<b r/> MAINE ARIAS M 05/16 [facility] Outpatient Encounter [id number] 06/02 [facility] OFFICE O/P EST MOD 30-39 MIN [id number] [id number] Diagnos is: ICD-10- CM E11.8 Type 2 diabete s mellitu s with unspeci fied complic ations< br/> TOÑO CAI 06/05 [facility] Outpatient Encounter [id number] Diagnos is: ICD-10- CM Z04.89 Encount er for examina tion and observa tion for oth reasons
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
RAMONA FREEMAN MD 06/23 [facility] OFFICE O/P EST MOD 30 MIN [id number] [id number] Diagnos is: ICD-10- CM 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, recurre nt, unspeci fied
MEREDITHLILIHYU N 07/12 [facility]AC[facility] FEE [id number] [id number] Diagnos is: ICD-10- CM 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, recurre nt, unspeci fied
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
VEGA PENA 07/13 [facility] Outpatient Encounter [id number] 07/29 [facility] OFFICE O/P EST MOD 30 MIN [id number] [id number] Diagnos is: ICD-10- CM I10 Essenti al (primar y) hyperte nsion<b r/> TOÑO CAI 08/11 [facility] Outpatient Encounter [id number] Diagnos is: ICD-10- CM E11.8 Type 2 diabete s mellitu s with unspeci fied complic ations< br/> JAYLEN CUELLO 08/12 [facility] Outpatient Encounter [id number] 09/12 [facility] Outpatient Encounter [id number] 10/02 [facility] OFFICE O/P EST LOW 20 MIN [id number] [id number] Diagnos is: ICD-10- CM 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
VIETMAINE Rojo E M 10/17 [facility] OFFICE O/P EST LOW 20 MIN 63207-2.68 [id number] Diagnos is: ICD-10- CM 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, recurre nt, unspeci fied
MEREDITH,GIHYU N 10/31 [facility] OFFICE O/P EST LOW 20 MIN [id number] [id number] Diagnos is: ICD-10- CM F33.0 Major depress marc disorde r, recurre nt, mild
MEREDITH,GIHYU N 10/31 [facility] OFF/OP EST MAY X REQ PHY/QHP [id number] [id number] Diagnos is: ICD-10- CM Z04.9 Encount er for examina tion and observa tion for unsp reason< br/> Juma TALBOT 10/31 [facility] Outpatient Encounter [id number] 10/31 [facility] OFFICE O/P EST LOW 20 MIN [id number] [id number] Diagnos is: ICD-10- CM S41.111 A Lacerat ion w/o foreign body of right upper arm, init encntr< br/> JUAN ERNST 10/31 [facility] OFFICE O/P EST LOW 20 MIN [id number] [id number] Diagnos is: ICD-10- CM R60.0 Localiz ed edema<b r/> JUAN ERNST 11/01 [facility] NURSING ASSESSMENT /EVALUATN 01985-2.63 [id number] Diagnos is: ICD-10- CM R22.30 Localiz ed swellin g, mass and lump, unspeci fied upper limb
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
JAYLEN CUELLO 11/26 [facility] Outpatient Encounter [id number] 01/21 [facility] OFFICE O/P EST LOW 20 MIN [id number] [id number] Diagnos is: ICD-10- CM M06.9 Rheumat oid arthrit is, unspeci fied
TOÑO CAI 02/11 [facility] Outpatient Encounter [id number] 02[facility]11 [facility] Outpatient Encounter [id number] 02/12 [facility] Outpatient Encounter [id number] 02/26 [facility] Outpatient Encounter [id number] 02/27 [facility] OFFICE O/P EST MOD 30 MIN [id number] [id number] Diagnos is: ICD-10- CM 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, recurre nt, unspeci fied
CALVIN HARPER N 02/27 [facility] FEE [id number] [id number] Diagnos is: ICD-10- CM 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, recurre nt, unspeci fied
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 Diagnos is: ICD-10- CM Z46.0 Encount er for fit/adj st of spectac les and contact lenses< br/> ANALI VALLADARES E 03/25 [facility] Outpatient Encounter [id number] [facility] OFFICE O/P EST LOW 20 MIN [id number] [id number] Diagnos is: ICD-10- CM M75.51 Bursiti s of right shoulde r
TOÑO CAI 04/02 [facility] OFFICE O/P EST MOD 30 MIN 83741-4.63 1. Diagnos is: ICD-10- CM L57.0 Actinic keratos is
VEGA PENA 04/04 [facility] PROSTHETIC TRAING 1ST ENC [id number] [id number] Diagnos is: ICD-10- CM M54.9 Dorsalg ia, unspeci fied
JAYLON AH 04/08 [facility] Out[facility] Encounter [id number]/12 [facility] THERAPEUTI C EXERCISES 52481-3.63 1. Diagnos is: ICD-10- CM M54.9 Dorsalg ia, unspeci fied
Juma FORD HERVE 04/16 [facility] Outpatient Encounter [id number] [id number] 04/28 [facility] THERAPEUTI C EXERCISES 82060-1.63 1. Diagnos is: ICD-10- CM M54.9 Dorsalg ia, unspeci fied
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
TAN MCLEAN LIE E 05/08 [facility] Out[facility] Encounter [id number] 05/09 [facility] Outpatient Encounter [id number] 05/13 [facility] Outpatient Encounter [id number] 05/29 [facility] DENOSUMAB INJECTION 30991-8.63 1. 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
VIETS,MAINE E M 05/29 [facility] OFFICE O/P EST MOD 30 MIN 90105-7.63 1. 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
CUELLO,ALI CE 05/29 [facility] Outpatient [facility]counter [id number] 1.05/29 [facility] Outpatient Encounter [id number] 06/03 [facility] OFFICE O/P EST MOD 30 MIN [id number] [id number] Diagnos is: ICD-10- CM 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, recurre nt, unspeci fied
MEREDITH,GIHYU N 06/05 [facility]AC[facility] FEE 61548-4.63 1. 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
MEREDITH,GIHYU N 06/05 [facility] Outpatient Encounter [id number] 06/07 [facility] Social History Combined list of available smoking, tobacco, and other social history from Department of Defense and Veterans Affairs facilities. Social History Type Response Date Comment Source Tobacco smoking status NHIS [facility]ACCO QUIT 15 YRS OR MORE 06/05/2023 [facility] History of tobacco use [facility] FORMER USER 06/05/2023 [facility]2018 [facility] History of tobacco use QUIT TOBACCO USE > 7 YEARS AGO 11/10/2017 [facility] History of tobacco use QUIT TOBACCO USE > 7 YEARS AGO 10/21/2016 [facility] History of tobacco use QUIT TOBACCO USE > 7 YEARS AGO 09/18/2015 stopped 50 years ago [facility] History of tobacco use HISTORY OF SMOKING 05/19/2005 [facility] History of tobacco use HISTORY OF SMOKING 05/31/2004 [facility] History of tobacco use HISTORY OF SMOKING 06/04/2003 [facility] History of tobacco use HISTORY OF SMOKING 06/03/2002 [facility] Plan of Care List of future care activities from [facility] facilities. Additional future care activities may be listed in the Assessment and Plan section. Date/Time Care Activity Care Activity Detail Facili ty 06/17/2024 AMBULATORY - MEDICINE AMBULATORY - [facility] [place] [facility] 08/06/2024 AMBULATORY - MEDIC[facility] 10/02/2024 AMBULATORY - PSYCHIATRY AMBULATORY - PSYC [facility] 10/03/2024 AMBULATORY - MEDICINE AMBULATORY - [facility]IC[facility] [place] [facility] 11/27/2024 AMBULATORY - MEDICINE AMBULATORY - MEDICI [place] [facility] 05/29/2024 Consult Order PHARMACY/[facility] OUT PT Cons General Manager's Choice [facility] 06/10/2024 Consult Order [facility] Cons [facility] Advance Directives List of completed, amended, or rescinded Advance Directives on record at [facility] facilities. An actual copy of the Directive is not included. Date Advance Directive Provider Source 06/02/2023 ADVANCE DIRECTIVE [facility]IF[facility]
--- OUTSIDE RECORDS SUMMARY | 2024-06-14 13:17 | XMS_ITS ---
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 Name Role Phone TOÑO CAI Primary Care [...] Relationship to Policy Wen [place] MED[place] SUPPLEMEN MASTER PSUED O MEDEX [facility] E Mar 19, 2004 [id number] HOLLIE SHEPHERD PATIENT [place] MED[place] SUPPLEMEN MASTER MEDEX [place] E Mar 19, 2004 [id number] [phone] HOLLIE SHEPHERD PATIENT [place] SUPPLEMEN MASTER MEDEX [place] E Mar 19, 2004 [id number] [phone] HOLLIE SHEPHERD PATIENT BCBS [facility] MEDICARE SUPPLEMEN MASTER PSUED O MEDEX [place] E Mar 19, 2004 [id number] HOLLIE SHEPHERD PATIENT MEDICARE (WNR) MEDICARE (M) PART B Mar 19, 2004 PART B [id number] [phone] HOLLIE SHEPHERD PATIENT MEDICARE (WNR) MEDICARE (M) PART B Mar 19, 2004 PART B [id number] [phone] CORAHOLLIE SILVA PATIENT MEDICARE (WNR) MEDICARE (M) PART B Mar 19, 2004 PART B [id number] CORAHOLLIE SILVA ALD PATIENT MEDICARE (WNR) MEDICARE (M) PART A Feb 17, 2003 PART A [id number] CORAHOLLIE SILVA ALD PATIENT MEDICARE (WNR) MEDICARE (M) PART A Feb 17, 2003 PART A [id number] [phone] CORAHOLLIE SILVA PATIENT MEDICARE (WNR) MEDICARE (M) PART A Feb 17, 2003 PART A [id number] HOLLIE SHEPHERD PATIENT MEDICARE (WNR) MEDICARE (M) PART A Feb 17, 2003 PART A [id number] CORAHOLLIE SILVA PATIENT MEDICARE (WNR) MEDICARE (M) PART B Feb 17, 2003 PART B [id number] [phone] HOLLIE SHEPHERD PATIENT MEDICARE (WNR) MEDICARE (M) PART A Feb 17, 2003 PART A [id number] [phone] HOLLIE SHEPHERD PATIENT MEDICARE (WNR) MEDICARE (M) PART B Feb 17, 2003 PART B [id number] HOLLIE SHEPHERD PATIENT Selected Encounter This section includes the information on [place] at [place] for the Encounter. Date/Time Encounter Type Encounter Description Reason Provider Source Jul 13, 2023 11:00 AM OFFICE O/P EST MOD 30 MIN DERMATOLOGY ICD-10-CM Z85.828 Personal history of other malignant neoplasm of skin JAHAIRA PENA Mikey Encounter Template Text not used by [place] Assessments - Encounter Diagnoses This section includes the primary and secondary diagnoses documented for the Encounter. Date/Time Primary/Secondary Diagnosis Diagnosis Name Provider Source Jul 22, 2023 08:47 AM PRIMARY Personal history of other malignant neoplasm of [facility] [place] [facility] Jul 22, 2023 08:47 AM SECONDARY Inflamed [facility]rheic ker[facility] [place] [facility] Jul 22, 2023 08:47 AM SECONDARY Other melanin [facility]pigmentation [facility] [place] [facility] Jul 22, 2023 08:47 AM SECONDARY Other seborrheic dermatitis [facility] [place] [facility] Jul 22, 2023 08:47 AM SECONDARY Other seborrheic keratosis [facility] [place] [facility] Plan of Treatment: Future Appointments (+ 6 months) and Future Tests (+/- 45 days) The Plan of Treatment section includes future care activities for the [facility] [place] [facility] This section includes future appointments and future orders which are active, pending or scheduled. Future Appointments This section includes appointments that were scheduled to occur 6 months from the date of the Encounter, up to a maximum of 20 appointments. The data comes from all [place] treatment facilities. Appointment Date/Time Appointment Type Appointme nt Facility Name Aug 11, 2023 11:00 AM AMBULATORY [facility]ICINE [facility] [place] [place] [facility] Oct 09, 2023 10:00 AM AMBULATORY - MEDICINE [facility] [place] [facility] Oct 10, 2023 02:30 PM AMBULATORY - MEDICINE [facility] [place] [facility] October 18, 2023 01:00 PM AMBULATORY - MEDICINE [facility] [place] [facility] November 01, 2023 10:30 AM AMBULATORY [place] [facility] November 01, 2023 10:30 AM AMBULATORY - PSYCHIATRY [facility] [place] [place] [facility] November 01, 2023 11:15 AM AMBULATORY - MEDICINE [facility] [place] [facility] November 01, 2023 01:30 PM AMBULATORY - MEDICINE [facility] [place] [facility] November 02, 2023 11:15 AM AMBULATORY - MEDICINE [facility] [place] [facility] November 02, 2023 11:30 AM AMBULATORY - MEDICINE [facility] [place] [facility] November 06, 2023 02:50 PM AMBULATORY - MEDICINE [facility] [place] [facility] Nov 22, 2023 10:00 AM [facility] Nov 27, 2023 02:00 PM AMBULAT[facility] - MEDICINE [facility] Lab Results: +/- 30 days of the encounter This section includes the Chemistry and Hematology Lab Results on record with [place] for the patient. Radiology Reports and Pathology Reports are provided separately, in subsequent sections. Lab Results This section contains the Chemistry/Hematology Results that were resulted 30 days before or 30 daysafter the date of the Encounter. Date/Time Source Result Type Result - Unit Interpretation Reference Range Comment Aug 08, 2023 01:07 PM [facility] MICROALBUMIN CREATININE RATIO PANEL Specimen Type: URINE No comment entered. Ordering Provider: JACINTO CAI Report Released Date/Time: Mar 24, 2023 11:19 AM Reporting Lab: [address] [address] Performing Lab: [address] [address] MICROALBUMIN/CR EATININE RATIO 16.2 mg/g 0-29.9 MICROALBUMIN,QU ANTITATIVE 0.5 mg/dL RR UNAVAIL CREATININE URINE 30.95 mg/dL Aug 03, 2023 08:05 AM [facility] IGG SUBCLASSES PANEL (Q) Specimen Type: SERUM Comment: Test Performed by [facility], [employer] [facility], [address] [place] [address] Esteban Higuera M.D., Ph.D., Director of Laboratories , CLIA [id number] TEST PERFORMED AT: , Ordering Provider: JACINTO CAI Report Released Date/Time: Jun 23, 2023 04:50 PM Reporting Lab: [address] [address] Performing Lab: [facility] [address] [address] IGG 1 (q) 202 mg/dL L 382-929 IGG 2 (q) 137 mg/dL L 241-700 IGG 3 (q) 14 mg/dL L 22-178 IGG 4 (q) 15.4 mg/dL 4.0-86.0 IGG, SERUM (q) 380 mg/dL L 600-1540 Aug 03, 2023 08:05 AM [facility] TESTOSTERONE, TOTAL Specimen Type: SERUM No comment entered. Ordering Provider: ALLIE CUELLO Report Released Date/Time: Apr 23, 2023 05:28 PM Reporting Lab: [facility] [address] [facility] [address] Performing Lab: [facility] [address] TESTOSTERONE, TOTAL 882.02 ng/dL 220.00-892 .00 Aug 03, 2023 08:05 AM [facility] IGM Specimen Type: SERUM No comment entered. Ordering Provider: JACINTO CAI Report Released Date/Time: Jun 23, 2023 04:50 PM Reporting Lab[facility] [address] [facility] [address] Performing Lab: [facility] [address] [address] IGM 31 mg/dL L 40-230 Aug 03, 2023 08:05 AM [facility] IGG Specimen Type: SERUM No comment entered. Ordering Provider: JACINTO CAI Report Released Date/Time: Jun 23, 2023 04:50 PM Reporting Lab[facility] [address] [facility] [address] Performing Lab: [facility] [address] [address] IGG 377 mg/dL L 700-1600 Aug 03, 2023 08:05 AM [facility] IMMUNOGLOBLIN (IgG,IgM,IgA) Specimen Type: SERUM No comment entered. Ordering Provider: JACINTO CAI Report Released Date/Time: Jun 23, 2023 04:50 PM Reporting Lab: [facility] [place] [address] Performing Lab: [facility] [address] [facility] [address] IGG 380 mg/dL L 700-1600 IGA 27 mg/dL L 70-400 IGM 30 mg/dL L 40-230 Aug 03, 2023 08:[address] [facility] BASIC METABOLIC PANEL (non-fasting) Specimen Type: SERUM No comment entered. Ordering Provider: ALLIE CUELLO Report Released Date/Time: Apr 23, 2023 05:27 PM Reporting Lab: [facility] [address] [facility] [address] Performing Lab: [address] [address] UREA NITROGEN 17 mg/dL 7-25 GLUCOSE 116 mg/dL H 65-100 SODIUM 144 mmol/L 135-145 POTASSIUM 4.1 mmol/L 3.5-5.0 CHLORIDE 104 mmol/L 100-110 CO2 28 meq/L 20-30 CREATININE, Serum 0.89 mg/dL 0.50-1.40 eGFR(CKD-EPI 2020) 83 mL/min >60 Aug 03, 2023 08:05 AM [facility] LIPID PANEL FASTING Specimen Type: SERUM No comment entered. Ordering Provider: ALLIE CUELLO Report Released Date/Time: Apr 23, 2023 05:29 PM Reporting Lab: [facility] [address] [facility] [address] Per[address] Lab: [facility] [address] [facility] [address] CHOLESTEROL 107 mg/dL TRIGLYCERIDE 70 mg/dL 0-150 LDL calculated 50 mg/dL 0-129 CHOL/HDL 2.5 HDL CHOLESTEROL 43 mg/dL 40-60 Aug 03, 2023 08:05 AM [facility] CBC Specimen Type: BLOOD No comment entered. Ordering Provider: ALLIE CUELLO Report Released Date/Time: Apr 23, 2023 05:28 PM Reporting Lab: [facility] [address] Performing Lab: [facility] [address] [facility] [address] WBC 4.75 10*3/uL 4.50-11.00 RBC 4.81 10*6/uL 4.23-5.66 HGB 13.6 g/dL 12.8-17 HCT 42.4 39.2-50.4 MCV 88.1 fL 82-99 MCHC 32.1 g/dL 30.8-35.1 PLT 150 10*3/uL 140-360 RDW-CV 13.5 12.0-16.0 MCH 28.3 pg 26.2-32.6 Aug 03, 2023 08:05 AM [facility] CBC AND DIFF (AUTO) Specimen Type: BLOOD No comment entered. Ordering Provider: JACINTO CAI Report Released Date/Time: Jun 23, 2023 04:50 PM Reporting Lab: [address] [address] Performing Lab: [address] [address] WBC 4.75 10*3/uL 4.50-11.00 RBC 4.81 10*6/uL 4.23-5.66 HGB 13.6 g/dL 12.8-17 HCT 42.4 39.2-50.4 MCV 88.1 fL 82-99 MCHC 32.1 g/dL 30.8-35.1 PLT 150 10*3/uL 140-360 RDW-CV 13.5 12.0-16.0 [place], Abs 1.04 10*3/uL 0.30-1.10 MCH 28.3 pg 26.2-32.6 Neut % 42.5 L 43.7-75.8 Lymph % 33.5 14.0-42.3 [place] % 21.9 H 5.1-13.7 Eos % 1.3 0.4-6.8 Baso % 0.6 0.1-2.0 Neut, Abs 2.02 10*3/uL L 2.20-7.60 Lymph, Abs 1.59 10*3/uL 1.00-3.20 Eos, Abs 0.06 10*3/uL 0.03-0.44 Baso, Abs 0.03 10*3/uL 0.01-0.13 Immature Gran % 0.2 0.0-0.7 Immature Gran, Abs 0.01 10*3/uL 0.00-0.06 Aug 03, 2023 08:04 AM [facility] HEMOGLOBIN A1C PANEL Specimen Type: BLOOD Comment: [...] Mar 24, 2023 11:19 AM Reporting Lab: [address] [address] Performing Lab: [address] [address] HEMOGLOBIN A1C 6.0 H 4.0-5.6 Aug 03, 2023 08:04 AM [facility] LIVER FUNCTION Specimen Type: SERUM No comment entered. Ordering Provider: JACINTO CAI Report Released Date/Time: Mar 24, 2023 11:19 AM Reporting Lab: [address] [address] Performing Lab: [address] [address] PROTEIN,TOTAL 5.6 g/dL L 6.0-8.3 ALBUMIN 4.0 g/dL 3.5-5.0 ALKALINE PHOSPHATASE 80 U/L 40-150 AST 23 U/L 5-34 ALT 36 U/L BILIRUBIN, TOTAL 0.8 mg/dL 0.2-1.2 Social History: Smoking Status (Most current) and Tobacco Use (All prior to encounter date) This section includes the most current, and the historical, smoking and tobacco- related health factors from the [place] facility where the Encounter took place. Current Smoking Status This section includes the most current smoking, or tobacco-related health factor, from the [place] facility where the Encounter took place. Date/Time Current Smoking Status Comment [facility] Jun 05, 2023 11:00 AM VA-TOBACCO FORMER USER [place] [facility] Tobacco Use History This section includes a history of the smoking, or tobacco-related health factors, that were collected on or before the date of the Encounter. The data comes from the [place] facility where the Encounter took place. Date/Time Smoking Status/Tobac co Use Comment Facility Jun 05, 2023 11:00 AM VA-TOBACCO QUIT 15 YRS OR MORE [place] [facility] [place] [facility] Jun 06, 2022 01:00 PM VA-TOBACCO FORMER USER [place] [facility] [place] [facility] Jun 06, 2022 01:00 PM VA-TOBACCO QUIT 15 YRS OR MORE [place] [facility] [place] [facility] Jun 30, 2021 02:37 PM VA-TOBACCO FORMER USER [place] [facility] [place] [facility] Jun 30, 2021 02:37 PM VA-TOBACCO QUIT 5 TO < 15 YRS [place] [facility] [place] [facility] May 22, 2020 03:30 PM VA-TOBACCO NEVER USED [place] [facility] [place] [facility] May 08, 2018 02:03 PM VA-TOBACCO FORMER USER [place] [facility] [place] [facility] May 08, 2018 02:03 PM VA-TOBACCO QUIT 15 YRS OR MORE [place] [facility] [place] [facility] November 10, 2017 02:33 PM QUIT TOBACCO USE > 7 YEARS AGO [facility] [place] [facility] October 21, 2016 01:55 PM QUIT TOBACCO USE > 7 YEARS AGO [facility] [place] [facility] Sep 18, 2015 11:24 AM QUIT TOBACCO USE > 7 YEARS AGO stopped 50 years ago [place] [facility] [place] [facility] May 19, 2005 08:01 AM HISTORY OF SMOKING [place] [facility] [facility] May 31, 2004 01:02 PM HISTORY OF SMOKING [place] [facility] [place] [facility] Jun 04, 2003 07:57 AM HISTORY OF SMOKING [place] [facility] [place] [facility] Jun 03, 2002 01:11 PM HISTORY OF SMOKING [place] [facility] [place] [facility] Jun 03, 2002 01:11 PM QUIT TOBACCO USE > 7 YE[facility] AGO [facility] Advance Directives: All historical and current Section Date Range: From patient's date of to the date document was created. This section includes ALL of a patient's completed or amended [place] Advance and Rescinded Directives. The entries below indicate that a directive exists for the patient, but an actual copy is not included with this document. The data comes from all [place] facilities. Date Advance Directives Provider Source Jun 02, 2023 ADVANCE DIRECTIVE MARYANNEJENNIFER CARNES Garcia [facility] Encounter Notes: All associated encounter notes This section contains the clinical notes associated to the Encounter. Date/Time Encounter Note(s) Provider Source Jul 13, 2023 11:07 AM DERMATOLOGY OUTPATIENT NOTE: LOCAL TITLE: DERMATOLOGY CLINIC NOTE STANDARD TITLE: DERMATOLOGY OUTPATIENT NOTE DATE OF NOTE: JUL 13, 2023@11:07 ENTRY DATE: JUL 13, 2023@11:07:27 AUTHOR: VEGA PENA EXP COSIGNER: URGENCY: STATUS: COMPLETED JUL 13, 2023 BEBO SHEPHERD Feb 85 PATIENT PHONE - Patient here for FOLLOW UP CHIEF COMPLAINT: HPI: Reviewed records from last Dermatology visit: 04/04/23. reports 2-3 weeks of facial rash - red, itchy, flaky around nasolabial folds and around mouth and jensen. Has been using topical antibiotics without improvement of symptoms. Also with a few itchy irritating papules on face that he would like treated. denies any other new/changing/bleeding/non-he aling lesions. REVIEW OF SYSTEMS: Constitutional-neg Skin/Hair/Nails-see HPI DermHx: -BCC to nose s/p excision -AKs s/p LN2 Family Hx: Denies known h/o MM PastMedHx: Reviewed. 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 Started on Actemra 02/02/23, continues on prednisone 10mg PO daily with plan to taper down to 1mg daily and hydroxychloroquine 200mg when seen 04/2023. History of Sun Exposure/Sunburns: +blistering morales in youth Active Outpatient Medications (including Supplies): Active Outpatient Medications Status 1) ALCOHOL PREP PAD USE 1 PAD TOPICALLY EVERY 7 DAYS TO ACTIVE CLEAN SKIN FOR INJECTION ETC 2) ATORVASTATIN CALCIUM 80MG TAB TAKE ONE-HALF TABLET BY ACTIVE (S) MOUTH ONCE DAILY 3) CALCIUM 200MG (CA CITRATE-950MG) TAB TAKE FOUR ACTIVE TABLETS BY MOUTH TWICE DAILY 4) CITALOPRAM HYDROBROMIDE 20MG TAB TAKE ONE-HALF TABLET ACTIVE BY MOUTH ONCE DAILY FOR MOOD 5) HYDROXYCHLOROQUINE SULFATE 200MG TAB TAKE ONE TABLET ACTIVE BY MOUTH ONCE DAILY 6) INSULIN,ASPART,HUMAN 100 UNIT/ML INJ INJECT 80 UNITS ACTIVE SUBCUTANEOUSLY EVERY DAY DIRECTED FOR USE WITH CONTINUOUS SUBCUTANEOUS INSULIN INFUSION DEVICE 7) MULTIVIT/OPHTH AREDS2/LUTE/ZEAX CAP/TAB TAKE 1 ACTIVE CAPSULE BY MOUTH TWICE DAILY IN THE MORNING AND EVENING, WITH FOOD 8) NEEDLE 18G 1IN USE 1 NEEDLE EVERY 7 DAYS FOR ACTIVE INJECTION 9) NEEDLE 23G 1IN USE 1 NEEDLE EVERY 7 DAYS FOR ACTIVE INJECTION 10) PREDNISONE 10MG TAB TAKE ONE TABLET BY MOUTH ONCE ACTIVE DAILY 11) PREDNISONE 1MG TAB TAKE ONE TABLET BY MOUTH ONCE ACTIVE DAILY 12) PREDNISONE 5MG TAB TAKE 1 TABLET (5 MG) BY MOUTH ONCE ACTIVE DAILY IN COMBINATION WITH 1MG TABLETS TO TAKE 9 MG DAILY FOR 2 WEEKS, THEN REDUCE BY 1 MG EVERY 2 WEEKS 13) SYRINGE 1ML LUER LOCK TIP USE 1 SYRINGE EVERY 7 DAYS ACTIVE 14) SYRINGE 2.5-3ML/NDL 22G 1.5IN SAFETY USE 1 SYRINGE ACTIVE EVERY THIRD DAY 15) TAMSULOSIN HCL 0.4MG CAP TAKE ONE CAPSULE BY MOUTH AT ACTIVE BEDTIME FOR ENLARGED PROSTATE 16) TESTOSTERONE CYP 200MG/ML 1ML IN OIL INJECT 0.3ML ACTIVE (60MG) INTRAMUSCULARLY EVERY 7 DAYS FOR LOW TESTOSTERONE 17) TOCILIZUMAB 162MG/0.9ML INJ SYR 0.9ML INJECT 162MG ACTIVE SUBCUTANEOUSLY EVERY 2 WEEKS Pending Outpatient Medications Status 1) GABAPENTIN 600MG TAB TAKE ONE TABLET BY MOUTH THREE PENDING TIMES A DAY Active Non-VA Medications Status 1) Non-VA ACETAMINOPHEN TAB BY MOUTH ONCE DAILY ACTIVE NEEDED 2) Non-VA CHOLECALCIF 50MCG (D3-2,000UNIT) TAB 50MCG BY ACTIVE MOUTH ONCE DAILY 3) Non-VA CYCLOBENZAPRINE HCL 10MG TAB 10MG BY MOUTH ACTIVE TWICE DAILY 4) Non-VA GABAPENTIN TAB 600 MG BY MOUTH THREE TIMES A ACTIVE DAY 5) Non-VA HYDROXYCHLOROQUINE SULFATE 200MG TAB 200MG BY ACTIVE MOUTH TWICE DAILY 6) Non-VA LOSARTAN 100MG TAB 100MG BY MOUTH DAILY ACTIVE 7) Non-VA OMEPRAZOLE 20MG EC CAP 20MG BY MOUTH EVERY DAY ACTIVE 8) Non-VA PILOCARPINE HCL 5MG TAB 5MG BY MOUTH TWICE ACTIVE DAILY 26 Total Medications PHYSICAL EXAM: [place] Skintype II General-AxOx3, NAD, pleasant, breathing unlabored, speech clear Limited Cutaneous examination, as permitted by the patient, including scalp, face, eyes, ears, neck, hands, fingers Pertinent findings per below: -surg scar distal nasal bridge -Scattered light perez and brown jagged macules in sun distributed areas. -Multiple scattered stuck on waxy pink, perez and brown papules and plaques -mild erythema and overlying thick white scaling noted to bilateral nasolabial folds, and jensen Diagnosis/Plan: #Personal History of Non-Melanotic Skin Cancer: -No evidence of recurrence at surgical site -Full Body Skin Exam advised yearly -Photoprotection discussed -Patient instructed to follow up in clinic for any concerning lesions or changes #Seborrheic Keratoses, Irritated -The was educated regarding the benign nature, but given irritation/pain, destructive treatment requested. -Liquid nitrogen cryotherapy performed as a destructive method. -Liquid nitrogen (2 cycles x 5-8sec) x #8 lesions performed. -Side effects including but not limited to redness, crusting, swelling, blistering, scarring, and hypopigmentation discussed. -Wound care discussed in length. #Seborrheic Keratoses: -The was educated regarding the benign nature, but to return with any growth, change or symptoms in area. #Solar Lentigines -The was educated regarding the benign nature and relation to chronic sun exposure, but to return with any growth, change or symptoms in area. -Photoprotection discussed. #Seborrheic Dermatitis, -Discussed with that this is a chronic inflammatory skin disorder usually characterized by erythema and scaling of the scalp, nasolabial folds, glabella and occasionally central face and anterior chest. -START ketoconazole 2% shampoo, apply 2x/wk x8 wk, then prn -START ketoconazole 2% cream bid x4 wk, then prn RTC 09/2023 as scheduled, sooner PRN * educated to RTC ivanna if any new, changing, symptomatic lesions. * Education on sun protection and avoidance strategies was provided. * Differential diagnosis, prescription options and risks/benefits were discussed with the patient, who consented to treatment plan. * consented to photography for documentation if indicated. * A dermatoscope was used during the exam. * NUB = Neoplasm of Uncertain Behavior of Skin Review of medical records = 3 min Time spent with patient including obtaining history, physical exam, shared decision making, procedures and counseling = 25 min Post visit documentation to include but not limited to medication and lab ordering = 2 min Total time = 30 min Medication Reconciliation: Outpatient: Has the patient been taking medications as documented in the EMLR? YES: The patient has been taking medications as documented in the EMLR. Essential Medication List for Review used to complete this medication reconciliation. INCLUDED IN THIS LIST: Alphabetical list of active outpatient prescriptions dispensed from this [facility] (local) and dispensed from another [place] or [facility] facility (remote) as well as inpatient orders (local, pending and active), local clinic medications, locally documented non-VA medications, and local prescriptions that have or been discontinued in the past 90 days. - All changes in medications, including all non-VA/Herbal/OTC medications were entered into CPRS. - If there were any medications the patient should no longer take, they were discontinued. - The patient/caregiver was instructed to update this list, discard old lists, and take this list to the next appointment, whether with a VA or non-VA provider. JLV Link Data on this list may not be complete. Please check JLV. Allergies/ADRs (Tool #5) FACILITY ALLERGY/ADR -------- No Remote Allergy/ADR Data available for this patient [facility] METFORMIN [facility] PENICILLIN [facility] ZOSYN Med Recon NoGlossary (Tool #1) INCLUDED IN THIS LIST: Alphabetical list of active outpatient prescriptions dispensed from this [place] (local) and dispensed from another [place] or [facility] facility (remote) as well as inpatient orders (local pending and active), local clinic medications, locally documented non-VA medications, and local prescriptions that have or been discontinued in the past 90 days. Non-VA Meds Last Documented On: Oct 06, 2022 NOTE The display of VA prescriptions dispensed from another [place] or [facility] facility (remote) is limited to active outpatient prescription entries matched to National Drug File at the originating site and may not include some items such as investigational drugs, compounds, etc. NOT INCLUDED IN THIS LIST: Medications self-entered by the patient into personal health records (i.e. [employer]) are NOT included in this list. Non-VA medications documented outside this [place], remote inpatient orders (regardless of status) and remote clinic medications are NOT included in this list. The patient and provider must always discuss medications the patient is taking, regardless of where the medication was dispensed or obtained. Non-VA ACETAMINOPHEN TAB TAKE BY MOUTH ONCE DAILY NEEDED OUTPT AMLODIPINE BESYLATE 5MG TAB (Status = ) TAKE ONE TABLET BY MOUTH ONCE DAILY FOR BLOOD PRESSURE/HEART, DO NOT TAKE WITH GRAPEFRUIT JUICE Rx# [id number] Last Released: 06/05/23 Qty/Days Supply: Rx Expiration Date: 07/02/23 Refills Remainin OUTPT ATORVASTATIN CALCIUM 80MG TAB (Status = Active/Suspended) TAKE ONE-HALF TABLET BY MOUTH ONCE DAILY Rx# [id number] Last Released: 07/06/23 Qty/Days Supply: Rx Expiration Date: 04/26/24 Refills Remainin Indication: FOR HIGH CHOLESTEROL OUTPT CALCIUM 200MG (CA CITRATE-950MG) TAB (Status = Active) TAKE FOUR TABLETS BY MOUTH TWICE DAILY Rx# [id number] Last Released: 05/04/23 Qty/Days Supply: Rx Expiration Date: 04/26/24 Refills Remainin Indication: FOR OSTEOPOROSIS Non-VA CHOLECALCIF 50MCG (D3-2,000UNIT) TAB TAKE ONE TABLET BY MOUTH ONCE DAILY Aug 11, 2020 Non-VA medication not recommended by [facility] provider. OUTPT CITALOPRAM HYDROBROMIDE 20MG TAB (Status = Active) TAKE ONE-HALF TABLET BY MOUTH ONCE DAILY FOR MOOD Rx# [id number] Last Released: 04/13/23 Qty/Days Supply: Rx Expiration Date: 09/29/23 Refills Remainin Indication: FOR MAJOR DEPRESSIVE DISORDER Non-VA CYCLOBENZAPRINE HCL 10MG TAB TAKE ONE TABLET BY MOUTH TWICE DAILY OUTPT DENOSUMAB 60MG/ML INJ SYRINGE 1ML (Status = ) INJECT 60MG/1ML SUBCUTANEOUSLY ONE TIME FOR OSTEOPOROSIS Rx# [id number] Last Released: 04/04/23 Qty/Days Supply: 07/18 Rx Expiration Date: 05/01/23 Refills Remainin Indication: FOR OSTEOPOROSIS OUTPT GABAPENTIN 600MG TAB (Status = Pending) TAKE ONE TABLET BY MOUTH THREE TIMES A DAY Login Date: 07/11/23 Qty/Days Supply: Refills Ordered: 0 Non-VA GABAPENTIN TAB TAKE 600 MG BY MOUTH THREE TIMES A DAY Non-VA HYDROXYCHLOROQUINE SULFATE 200MG TAB TAKE ONE TABLET BY MOUTH TWICE DAILY OUTPT HYDROXYCHLOROQUINE SULFATE 200MG TAB (Status = Active) TAKE ONE TABLET BY MOUTH ONCE DAILY Rx# [id number] Last Released: 04/20/23 Qty/Days Supply: 90 Rx Expiration Date: 02/11/24 Refills Remainin OUTPT INSULIN,ASPART,HUMAN 100 UNIT/ML INJ (Status = Active) INJECT 80 UNITS SUBCUTANEOUSLY EVERY DAY DIRECTED FOR USE WITH CONTINUOUS SUBCUTANEOUS INSULIN INFUSION DEVICE Rx# [id number] Last Released: 04/19/23 Qty/Days Supply: Rx Expiration Date: 04/17/24 Refills Remainin Non-VA LOSARTAN 100MG TAB TAKE ONE TABLET BY MOUTH DAILY OUTPT MULTIVIT/OPHTH AREDS2/LUTE/ZEAX CAP/TAB (Status = Active) TAKE 1 CAPSULE BY MOUTH TWICE DAILY IN THE MORNING AND EVENING, WITH FOOD Rx# [id number] Last Released: 07/05/23 Qty/Days Supply: 120/60 Rx Expiration Date: 03/29/24 Refills Remainin Non-VA OMEPRAZOLE 20MG EC CAP TAKE 1 CAPSULE BY MOUTH EVERY DAY Non-VA PILOCARPINE HCL 5MG TAB TAKE ONE TABLET BY MOUTH TWICE DAILY Dec 04, 2020 Non-VA medication not recommended by [facility] provider. OUTPT PREDNISONE 10MG TAB (Status = Active) TAKE ONE TABLET BY MOUTH ONCE DAILY Rx# [id number] Last Released: 02/08/23 Qty/Days Supply: 60/60 Rx Expiration Date: 12/08/23 Refills Remainin OUTPT PREDNISONE 1MG TAB (Status = Discontinued) TAKE 1 MG TABLETS BY MOUTH ONCE DAILY IN COMBINATION WITH 5MG TABLETS TO TAKE 9MG DAILY FOR 2 WEEKS, THEN REDUCE DOSE BY 1 MG EVERY 2 WEEKS Rx# [id number] Last Released: 05/04/23 Qty/Days Supply: 140/56 Rx Expiration Date: 06/27/23 Refills Remainin OUTPT PREDNISONE 1MG TAB (Status = Active) TAKE ONE TABLET BY MOUTH ONCE DAILY Rx# [id number] Last Released: 06/22/23 Qty/Days Supply: 60/60 Rx Expiration Date: 06/21/24 Refills Remainin OUTPT PREDNISONE 5MG TAB (Status = Active) TAKE 1 TABLET (5 MG) BY MOUTH ONCE DAILY IN COMBINATION WITH 1MG TABLETS TO TAKE 9 MG DAILY FOR 2 WEEKS, THEN REDUCE BY 1 MG EVERY 2 WEEKS Rx# [id number] Last Released: 05/04/23 Qty/Days Supply: Rx Expiration Date: 07/31/23 Refills Remainin OUTPT TAMSULOSIN HCL 0.4MG CAP (Status = Active) TAKE ONE CAPSULE BY MOUTH AT BEDTIME FOR ENLARGED PROSTATE Rx# [id number] Last Released: 07/12/23 Qty/Days Supply: Rx Expiration Date: 04/12/24 Refills Remainin Indication: FOR ENLARGED PROSTATE OUTPT TESTOSTERONE CYP 200MG/ML 1ML IN OIL (Status = Active) INJECT 0.3ML (60MG) INTRAMUSCULARLY EVERY 7 DAYS FOR LOW TESTOSTERONE Rx# [id number] Last Released: 07/10/23 Qty/Days Supply: 10/14 Rx Expiration Date: 10/28/23 Refills Remainin Indication: FOR LOW TESTOSTERONE OUTPT TOCILIZUMAB 162MG/0.9ML INJ SYR 0.9ML (Status = Discontinued) INJECT 162MG SUBCUTANEOUSLY EVERY 2 WEEKS FOR RHEUMATOID ARTHRITIS Rx# [id number] Last Released: 04/19/23 Qty/Days Supply: 08/16 Rx Expiration Date: 02/03/24 Refills Remainin Indication: FOR RHEUMATOID ARTHRITIS OUTPT TOCILIZUMAB 162MG/0.9ML INJ SYR 0.9ML (Status = Discontinued) INJECT 162MG SUBCUTANEOUSLY EVERY 2 WEEKS Rx# [id number] Last Released: 05/17/23 Qty/Days Supply: 07/02 Rx Expiration Date: 06/14/23 Refills Remainin OUTPT TOCILIZUMAB 162MG/0.9ML INJ SYR 0.9ML (Status = Active) INJECT 162MG SUBCUTANEOUSLY EVERY 2 WEEKS Rx# [id number] Last Released: 07/10/23 Qty/Days Supply: 08/16 Rx Expiration Date: 06/07/24 Refills Remainin SUPPLIES OUTPT ALCOHOL PREP PAD (Status = Active) USE 1 PAD TOPICALLY EVERY 7 DAYS TO CLEAN SKIN FOR INJECTION ETC Rx# [id number] Last Released: 05/05/23 Qty/Days Supply: Rx Expiration Date: 07/26/23 Refills Remainin OUTPT NEEDLE 18G 1IN (Status = Active) USE 1 NEEDLE EVERY 7 DAYS FOR INJECTION Rx# [id number] Last Released: 05/08/23 Qty/Days Supply: Rx Expiration Date: 04/27/24 Refills Remainin OUTPT NEEDLE 23G 1IN (Status = Active) USE 1 NEEDLE EVERY 7 DAYS FOR INJECTION Rx# [id number] Last Released: 05/05/23 Qty/Days Supply: Rx Expiration Date: 04/27/24 Refills Remainin OUTPT SYRINGE 1ML LUER LOCK TIP (Status = Active) USE 1 SYRINGE EVERY 7 DAYS Rx# [id number] Last Released: 05/04/23 Qty/Days Supply: Rx Expiration Date: 04/27/24 Refills Remainin OUTPT SYRINGE 2.5-3ML/NDL 21G 1IN (Status = Discontinued) USE 1 SYRINGE EVERY THIRD DAY Rx# [id number] Last Released: Qty/Days Supply: Rx Expiration Date: 07/25/23 Refills Remainin OUTPT SYRINGE 2.5-3ML/NDL 22G 1.5IN SAFETY (Status = Active) USE 1 SYRINGE EVERY THIRD DAY Rx# [id number] Last Released: 04/27/23 Qty/Days Supply: Rx Expiration Date: 07/25/23 Refills Remainin /es/ VEGA PENA DNP, MANAGEMENT ADVISOR-C NURSE PRACTITIONER Signed: 07/13/2023 11:30 VEGA PENA [facility]
--- OUTSIDE RECORDS SUMMARY | 2024-06-14 13:17 | XMS_ITS ---
Author Name [facility] [place] [facility] [place] [facility] [facility] [place] Address [address] [place] [id number] Care Team Providers Care Therapeutic Strategy Lead Name Role Phone TOÑO CAI Primary Care [...] Relationship to Policy Wen [place] MEDICARE SUPPLEMEN MASTER PSUED O MEDEX BRONZ E Mar 19, 2004 [id number] HOLLIE SHEPHERD PATIENT [place] MED[place]ARE SUPPLEMEN MASTER MEDEX BRONZ E Mar 19, 2004 [id number] [phone] HOLLIE SHEPHERD [place]IENT [place] SUPPLEMEN MASTER MEDEX BRONZ E Mar 19, 2004 [id number] [phone] HOLLIE SHEPHERD PATIENT BCBS [facility] MEDICARE SUPPLEMEN MASTER PSUED O MEDEX BRONZ E Mar 19, 2004 [id number] [phone] HOLLIE SHEPHERD PATIENT MEDICARE (WNR) MEDICARE (M) PART B Mar 19, 2004 PART B [id number] HOLLIE SHEPHERD PATIENT MEDICARE (WNR) MEDICARE (M) PART B Mar 19, 2004 PART B [id number] HOLLIE SHEPHERD ALD PATIENT MEDICARE (WNR) MEDICARE (M) PART B Mar 19, 2004 PART B [id number] HOLLIE SHEPHERD ALD PATIENT MEDICARE (WNR) MEDICARE (M) PART A Feb 17, 2003 PART A [id number] [phone] HOLLIE SHEPHERD ALD PATIENT MEDICARE (WNR) MEDICARE (M) PART A Feb 17, 2003 PART A [id number] HOLLIE SHEPHERD ALD PATIENT MEDICARE (WNR) MEDICARE (M) PART A Feb 17, 2003 PART A [id number] HOLLIE SHEPHERD PATIENT MEDICARE (WNR) MEDICARE (M) PART A Feb 17, 2003 PART A [id number] [phone] HOLLIE SHEPHERD PATIENT MEDICARE (WNR) MEDICARE (M) PART B Feb 17, 2003 PART B [id number] [phone] HOLLIE SHEPHERD PATIENT MEDICARE (WNR) MEDICARE (M) PART A Feb 17, 2003 PART A [id number] HOLLIE SHEPHERD PATIENT MEDICARE (WNR) MEDICARE (M) PART B Feb 17, 2003 PART B [id number] HOLLIE SHEPHERD PATIENT Selected Encounter This section includes the information on record at [place] for the Encounter. Date/Time Encounter Type Encounter Description Reason Provider Source Jul 12, 2023 10:[address] [facility] - IND ICD-10-CM F33.9 Major depressive disorder, recurrent, unspecified MEREDITH,KALLIEUN E Encounter Template Text not used by [place] Assessments - Encounter Diagnoses This section includes the primary and secondary diagnoses documented for the Encounter. Date/Time Primary/Secondary Diagnosis Diagnosis Name Provider Source Jul 20, 2023 02:51 PM PRIMARY Major depressive disorder, recurrent, unspecified MEREDITH,GIHYUN [facility] Plan of Treatment: Future Appointments (+ 6 months) and Future Tests (+/- 45 days) The Plan of Treatment section includes future care activities for the patient from all [place] treatmentfamission hospitalities. This section includes future appointments and future orders which are active, pending or scheduled. Future Appointments This section includes appointments that were scheduled to occur 6 months from the date of the Encounter, up to a maximum of 20 appointments. The data comes from all [place] treatment facilities. Appointment Date/Time Appointment Type Appointme nt Facility Name Jul 13, 2023 11:00 AM AMBULATORY [facility] MEDICINE [facility] [place] [facility] Aug 11, 2023 11:00 AM AMBULATORY - MEDICINE [facility] [place] [facility] Oct 09, 2023 10:00 AM AMBULATORY - MEDICINE [facility] [place] [facility] Oct 10, 2023 02:30 PM AMBULATORY - MEDICINE [facility] [place] [facility] October 18, 2023 01:00 PM AMBULATORY - MEDICINE [facility] [place] [facility] November 01, 2023 10:30 AM AMBULATORY [place] [facility] November 01, 2023 10:30 AM AMBULATORY - PSYCHIATRY [facility] [place] [facility] November 01, 2023 11:15 AM AMBULATORY - MEDICINE [facility] [place] [facility] November 01, 2023 01:30 PM AMBULATORY - MEDICINE [facility] [place] [facility] November 02, 2023 11:15 AM AMBULATORY - MEDICINE [facility] [place] [facility] November 02, 2023 11:30 AM AMBULATORY - MEDICINE [facility] [place] [facility] November 06, 2023 02:50 PM AMBULATORY - MEDICINE [facility] [place] [facility] Nov 22, 2023 10:00 AM AMBULATORY - MEDICINE [facility] [place] [facility] Nov 27, 2023 02:00 PM AMBULATORY - MEDICINE [facility] [place] [facility] Lab Results: +/- 30 days of the encounter This section includes the Chemistry and Hematology Lab Results on record with [place] for the patient. Radiology Reports and Pathology Reports are provided separately, in subsequent sections. Lab Results This section contains the Chemistry/Hematology Results that were resulted 30 days before or 30 daysafter the date of the Encounter. Date/Time Source Result Type Result - Unit Interpretation Reference Range Comment Aug 08, 2023 01:07 PM [facility] MICROALBUMIN CREATININE RATIO PANEL Specimen Type: URINE No comment entered. Ordering Provider: JACINTO CAI Report Released Date/Time: Mar 24, 2023 11:19 AM Reporting Lab: [facility] [address] [facility] [address] Performing Lab: [address] [address] MICROALBUMIN/CR EATININE RATIO 16.2 mg/g 0-29.9 MICROALBUMIN,QU ANTITATIVE 0.5 mg/dL RR UNAVAIL CREATININE URINE 30.95 mg/dL Aug 03, 2023 08:05 AM [facility] IGG SUBCLASSES PANEL (Q) Specimen Type: SERUM Comment: Test Performed by [facility], [facility], [address] [place] [address] Esteban Higuera M.D., Ph.D., Director of Laboratories , CLIA [id number] TEST PERFORMED AT: , Ordering Provider: JACINTO CAI Report Released Date/Time: Jun 23, 2023 04:50 PM Reporting Lab: [address] [address] Performing Lab: [facility] [address] [address] IGG 1 (q) 202 mg/dL L 382-929 IGG 2 (q) 137 mg/dL L 241-700 IGG 3 (q) 14 mg/dL L 22-178 IGG 4 (q) 15.4 mg/dL 4.0-86.0 IGG, SERUM (q) 380 mg/dL L 600-1540 Aug 03, 2023 08:05 AM [facility] TESTOSTERONE, TOTAL Specimen Type: SERUM No comment entered. Ordering Provider: ALLIE CUELLO Report Released Date/Time: Apr 23, 2023 05:28 PM Reporting Lab: [address] [address] Performing Lab: [facility] [address] [facility] [address] TESTOSTERONE, TOTAL 882.02 ng/dL 220.00-892 .00 Aug 03, 2023 08:05 AM [facility] IGM Specimen Type: SERUM No comment entered. Ordering Provider: JACINTO CAI Report Released Date/Time: Jun 23, 2023 04:50 PM Reporting Lab: [facility] [address] [facility] [address] Performing Lab: [facility] [address] [facility] [address] IGM 31 mg/dL L 40-230 Aug 03, 2023 08:05 AM [facility] IGG Specimen Type: SERUM No comment entered. Ordering Provider: JACINTO CAI Report Released Date/Time: Jun 23, 2023 04:50 PM Reporting Lab: [facility] [address] [facility] [address] Performing Lab: [facility] [address] [facility] [address] IGG 377 mg/dL L 700-1600 Aug 03, 2023 08:05 AM [facility] IMMUNOGLOBLIN (IgG,IgM,IgA) Specimen Type: SERUM No comment entered. Ordering Provider: JACINTO CAI Report Released Date/Time: Jun 23, 2023 04:50 PM Reporting Lab: [facility] [address] [facility] [address] Performing Lab: [facility] [address] [facility] [address] IGG 380 mg/dL L 700-1600 IGA 27 mg/dL L 70-400 IGM 30 mg/dL L 40-230 Aug 03, 2023 08:05 AM [facility] LIPID PANEL FASTING Specimen Type: SERUM No comment entered. Ordering Provider: ALLIE CUELLO Report Released Date/Time: Apr 23, 2023 05:29 PM Reporting Lab: [facility] [address] [facility] [address] Performing Lab: [facility] [address] [facility] [address] CHOLESTEROL 107 mg/dL TRIGLYCERIDE 70 mg/dL 0-150 LDL calculated 50 mg/dL 0-129 CHOL/HDL 2.5 HDL CHOLESTEROL 43 mg/dL 40-60 Aug 03, 2023 08:05 AM [facility] BASIC METABOLIC PANEL (non-fasting) Specimen Type: SERUM No comment entered. Ordering Provider: ALLIE CUELLO Report Released Date/Time: Apr 23, 2023 05:27 PM Reporting Lab: [facility] [address] [facility] [address] Performing Lab: [address] [address] UREA NITROGEN 17 mg/dL 7-25 GLUCOSE 116 mg/dL H 65-100 SODIUM 144 mmol/L 135-145 POTASSIUM 4.1 mmol/L 3.5-5.0 CHLORIDE 104 mmol/L 100-110 CO2 28 meq/L 20-30 CREATININE, Serum 0.89 mg/dL 0.50-1.40 eGFR(CKD-EPI 2020) 83 mL/min >60 Aug 03, 2023 08:05 AM [facility] CBC Specimen Type: BLOOD No comment entered. Ordering Provider: ALLIE CUELLO Report Released Date/Time: Apr 23, 2023 05:28 PM Reporting Lab: [facility] [address] [facility] [address] Performing Lab: [address] [address] WBC 4.75 10*3/uL 4.50-11.00 RBC 4.81 10*6/uL 4.23-5.66 HGB 13.6 g/dL 12.8-17 HCT 42.4 39.2-50.4 MCV 88.1 fL 82-99 MCHC 32.1 g/dL 30.8-35.1 PLT 150 10*3/uL 140-360 RDW-CV 13.5 12.0-16.0 MCH 28.3 pg 26.2-32.6 Aug 03, 2023 08:05 AM [facility] CBC AND DIFF (AUTO) Specimen Type: BLOOD No comment entered. Ordering Provider: JACINTO CAI Report Released Date/Time: Jun 23, 2023 04:50 PM Reporting Lab: [address] [address] Performing Lab: [facility] [address] [facility] [address] WBC 4.75 10*3/uL 4.50-11.00 RBC 4.81 10*6/uL 4.23-5.66 HGB 13.6 g/dL 12.8-17 HCT 42.4 39.2-50.4 MCV 88.1 fL 82-99 MCHC 32.1 g/dL 30.8-35.1 PLT 150 10*3/uL 140-360 RDW-CV 13.5 12.0-16.0 Bibb, Abs 1.04 10*3/uL 0.30-1.10 MCH 28.3 pg 26.2-32.6 Neut % 42.5 L 43.7-75.8 Lymph % 33.5 14.0-42.3 Bibb % 21.9 H 5.1-13.7 Eos % 1.3 0.4-6.8 Baso % 0.6 0.1-2.0 Neut, Abs 2.02 10*3/uL L 2.20-7.60 Lymph, Abs 1.59 10*3/uL 1.00-3.20 Eos, Abs 0.06 10*3/uL 0.03-0.44 Baso, Abs 0.03 10*3/uL 0.01-0.13 Immature Gran % 0.2 0.0-0.7 Immature Gran, Abs 0.01 10*3/uL 0.00-0.06 Aug 03, 2023 08:04 AM [facility] HEMOGLOBIN A1C PANEL Specimen Type: BLOOD [...] Mar 24, 2023 11:19 AM Reporting Lab: [address] [address] Performing Lab: [address] [address] HEMOGLOBIN A1C 6.0 H 4.0-5.6 Aug 03, 2023 08:04 AM [facility] LIVER FUNCTION Specimen Type: SERUM No comment entered. Ordering Provider: JACINTO CAI Report Released Date/Time: Mar 24, 2023 11:19 AM Reporting Lab: [address] [address] Performing Lab: [address] [address] PROTEIN,TOTAL 5.6 g/dL L 6.0-8.3 ALBUMIN 4.0 g/dL 3.5-5.0 ALKALINE PHOSPHATASE 80 U/L 40-150 AST 23 U/L 5-34 ALT 36 U/L BILIRUBIN, TOTAL 0.8 mg/dL 0.2-1.2 Social History: Smoking Status (Most current) and Tobacco Use (All prior to encounter date) This section includes the most current, and the historical, smoking and tobacco- related health factors from the [place] facility where the Encounter took place. Current Smoking Status This section includes the most current smoking, or tobacco-related health factor, from the [place] facility where the Encounter took place. Date/Time Current Smoking Status Comment [facility] Jun 05, 2023 11:00 AM [place]-TOBACCO FORMER USER [facility] Tobacco Use History This section includes a history of the smoking, or tobacco-related health factors, that were collected on or before the date of the Encounter. The data comes from the [place] facility where the Encounter took place. Date/Time Smoking Status/Tobac co Use Comment Facility Jun 05, 2023 11:00 AM [place]-TOBACCO QUIT 15 YRS OR [facility] Jun 06, 2022 01:00 PM VA-TOBACCO FORMER USER [facility] [place] [facility] Jun 06, 2022 01:00 PM VA-TOBACCO QUIT 15 YRS OR MORE [facility] [place] [facility] Jun 30, 2021 02:37 PM VA-TOBACCO FORMER USER [facility] [place] [facility] Jun 30, 2021 02:37 PM VA-TOBACCO QUIT 5 TO < 15 YRS [facility] [place] [facility] May 22, 2020 03:30 PM VA-TOBACCO NEVER USED [facility] [place] [facility] May 08, 2018 02:03 PM VA-TOBACCO FORMER USER [facility] [place] [facility] May 08, 2018 02:03 PM VA-TOBACCO QUIT 15 YRS OR MORE [facility] [place] [facility] November 10, 2017 02:33 PM QUIT TOBACCO USE > 7 YEARS AGO [facility] [place] [facility] October 21, 2016 01:55 PM QUIT TOBACCO USE > 7 YEARS AGO [facility] [place] [facility] Sep 18, 2015 11:24 AM QUIT TOBACCO USE > 7 YEARS AGO stopped 50 years ago [facility] [place] [facility] May 19, 2005 08:01 AM HISTORY OF SMOKING [facility] [place] [facility] May 31, 2004 01:02 PM HISTORY OF SMOKING [facility] [place] [facility] Jun 04, 2003 07:57 AM HISTORY OF SMOKING [facility] [place] [facility] Jun 03, 2002 01:11 PM HISTORY OF SMOKING [facility] [place] [facility] Jun 03, 2002 01:11 PM QUIT TOBACCO USE > 7 YEARS AGO [facility] [place] [facility] Advance Directives: All historical and current Section Date Range: From patient's date of to the date document was created. This section includes ALL of a patient's completed or amended [place] Advance and Rescinded Directives. The entries below indicate that a directive exists for the patient, but an actual copy is not included with this document. The data comes from all [place] facilities. Date Advance Directives Provider Source Jun 02, 2023 ADVANCE DIRECTIVE JENNIFER QUIROS [facility] Encounter Notes: All associated encounter notes This section contains the clinical notes associated to the Encounter. Date/Time Encounter Note(s) Provider Source Jul 12, 2023 11:04 AM PSYCHIATRY NOTE: LOCAL TITLE: PSYCHIATRY NOTE STANDARD TITLE: PSYCHIATRY NOTE DATE OF NOTE: JUL 12, 2023@11:04 ENTRY DATE: JUL 12, 2023@11:04:23 AUTHOR: RADHA HARPER EXP COSIGNER: URGENCY: STATUS: COMPLETED Length of time: 30 minutes (Today's meeting was conducted by [place] [employer] (VVC) with 's consent. The VVC meeting was secure and private. Equipment for VVC was working for provider and .) ID & Diagnoses: 83-year-old male with major depressive disorder (0% SC). , father of 4 adult children (between 54-61). Lives alone with a cat and a lot of fish in a large fish tank. Served in [employer] for 6 yrs. 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 Psychiatric Medications: Citalopram 10 mg/day for depression History of Present Illness: He has been doing well while taking citalopram 10 mg/day. No side effects. He would like to continue citalopram 10 mg/day for depression. 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 Despite these concerns, he can handle them well. Denies active depression (0/10, 10 being worst). He is glad to have a new girlfriend he met at a faith, who is about 15 yrs younger than him. He still visit his 's [place] almost daily. He continues to work as a wood feather maker, I made another $550 by selling '[employer] window frame' last week. He talks and sees his children, grandchildren, and great- grandchildren very often (usually once a week). He enjoys making wood toys, watching movies, doing yard work and lawn maintenance, and meeting with faith people. Denies alcohol, drug, or gambling problems. No acute psychiatric issues noted. MENTAL STATUS EXAM: Appearance/Behavior: pleasant Speech: coherent Mood: fine Affect: mood congruent Perceptual disturbance: no visual/auditory hallucinations Thought process: goal directed Thought content: no delusions Suicidal/Violent thoughts: none Cognition/Memory: grossly intact Insight/Judgment: good Risk assessment: is determined to have LOW ACUTE RISK to self or others at this time. [place] is determined to have LOW CHRONIC RISK---based on no prior suicide attempts. Safety: Patient has agreed to call 911 or go to the closest ED if the pt feels unsafe or has any suicidal or homicidal ideations. Active Outpatient Medications (including Supplies): Active Outpatient [...] MOUTH TWICE ACTIVE DAILY 26 Total Medications MEDICATION RECONCILIATION was done as followed: All the medications patients have received from the VA recently or administered in clinic including VA prescriptions (that have recently or been discontinued), Non-VA Medications have been reviewed in [facility] medication records. PSYCHIATRIC MEDICATION MONITORING: reports taking medication as prescribed [x] yes [] no Refill hx is appropriate [x] yes [] no Medication side effects: [] yes [x] no Benefits/risks, potential side effects, off-label use and alternative treatments were discussed. Patient verbally consents to taking psychotropic medications as prescribed Active Problem Cerebrovascular disease I67.9 04/26/2023 ALLIE CUELLO Chronic recurrent major depressive 02/01/2023 SHANTI CHEN 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 09/19/2011 TOÑO CAI Microscopic Hematuria 599.72 08/04/2010 VESTA DE LA CRUZ MD Rosacea 695.3 07/30/2010 VESTA DE LA CRUZ MD Hypertension (SNOMED CT [id number]) I 04/26/2023 ALLIE CUELLO Spinal Stenosis * (ICD-9-CM 724.00) 02/05/2010 VESTA DE LA CRUZ MD Hyperlipidemia (SNOMED CT 96000403) 04/26/2023 ALLIE CUELLO Osteoarthritis * (ICD-9-CM 715.90) 07/02/2008 PAUL ACOSTA Lower Back Pain * (ICD-9-CM 724.2) 07/02/2008 PAUL ACOSTA Vertigo 780.4 11/28/2007 PAUL ACOSTA Diabetes mellitus type 2 (SNOMED CT 09/17/2022 ALLIE CUELLO Gastroesophageal Reflux Disorder 53 11/28/2007 PAUL ACOSTA ASSESSMENT: -Major depressive disorder: stable PLAN: -Continue citalopram 10 mg/day for depression -Follow-up: Return to clinic with life underwriter on 10/03 or earlier as needed /thomas/ RADHA HARPER Psychiatrist Signed: 07/13/2023 12:33 RADHA HARPER [facility]
--- OUTSIDE RECORDS SUMMARY | 2024-06-14 13:17 | XMS_ITS | Encounter Summary ---
Author Name [facility] [place] [facility] [place] Address [address] [place] [id number] Care Team Providers Care C Application Developer Name Role Phone TOÑO CAI Primary Care [...] Relationship to Policy Wen [place] MED[place] SUPPLEMEN MASTER PSUED O MEDEX BRONZ E Mar 19, 2004 [id number] HOLLIE SHEPHERD PATIENT [place]BS [place] MED[place] SUPPLEMEN MASTER MEDEX BRONZ E Mar 19, 2004 [id number] HOLLIE SHEPHERD PATIENT [place]BS [place] MED[place]ARE SUPPLEMEN MASTER MEDEX BRONZ E Mar 19, 2004 [id number] HOLLIE SHEPHERD PATIENT BCBS [facility] MEDICARE SUPPLEMEN MASTER PSUED O MEDEX BRONZ E Mar 19, 2004 [id number] HOLLIE SHEPHERD PATIENT MEDICARE (WNR) MEDICARE (M) PART B Mar 19, 2004 PART B [id number] HOLLIE SHEPHERD PATIENT MEDICARE (WNR) MEDICARE (M) PART B Mar 19, 2004 PART B [id number] CORAHOLLIE SILVA ALD PATIENT MEDICARE (WNR) MEDICARE (M) PART B Mar 19, 2004 PART B [id number] [phone] CORAHOLLIE SILVA ALD PATIENT MEDICARE (WNR) MEDICARE (M) PART A Feb 17, 2003 PART A [id number] CORAHOLLIE SILVA ALD PATIENT MEDICARE (WNR) MEDICARE (M) PART A Feb 17, 2003 PART A [id number] [phone] CORAHOLLIE SILVA ALD PATIENT MEDICARE (WNR) MEDICARE (M) PART A Feb 17, 2003 PART A [id number] [phone] HOLLIE SHEPHERD ALD PATIENT MEDICARE (WNR) MEDICARE (M) PART A Feb 17, 2003 PART A [id number] [id number] [phone] HOLLIE SHEPHERD ALD PATIENT MEDICARE (WNR) MEDICARE (M) PART B Feb 17, 2003 PART B [id number] HOLLIE SHEPHERD PATIENT MEDICARE (WNR) MEDICARE (M) PART A Feb 17, 2003 PART A [id number] [id number] [phone] HOLLIE SHEPHERD PATIENT MEDICARE (WNR) MEDICARE (M) PART B Feb 17, 2003 PART B [id number] [phone] HOLLIE SHEPHERD PATIENT Selected Encounter This section includes the information on record at [place] for the Encounter. 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 Date/Time Primary/Secondary Diagnosis Diagnosis Name Provider Source Jun 23, 2023 10:59 AM PRIMARY Nonfamilial hypogammaglobulinemia RAMBO FREEMAN MD [facility] Plan of Treatment: Future Appointments (+ 6 months) and Future Tests (+/- 45 days) The Plan of Treatment section includes future care activities for the patient from all [place] treatmentfacilities. This section includes future appointments and future orders which are active, pending or scheduled. Future Appointments This section includes appointments that were scheduled to occur 6 months from the date of the Encounter, up to a maximum of 20 appointments. The data comes from all [place] treatment facilities. Appointment Date/Time Appointment Type Appointme nt Facility Name Jul 12, 2023 10:00 AM [facility] Jul 12, 2023 10:00 AM [facility] [place] [facility] Jul 13, 2023 11:00 AM [facility] [place] [facility] Aug 11, 2023 11:00 AM [facility] [place] [facility] Oct 09, 2023 10:00 AM [facility] [place] [facility] Oct 10, 2023 02:30 PM [facility] [place] [facility] October 18, 2023 01:00 PM [facility] [place] [facility] November 01, 2023 10:30 AM [facility] November 01, 2023 10:30 AM [facility] [place] [facility] November 01, 2023 11:15 AM [facility] [place] [facility] November 01, 2023 01:30 PM [facility] [place] [facility] November 02, 2023 11:15 AM [facility] [place] [facility] November 02, 2023 11:30 AM [facility] [place] [facility] November 06, 2023 02:50 PM [facility] [place] [facility] Nov 22, 2023 10:00 AM [facility] [place] [facility] Nov 27, 2023 02:00 PM [facility] [place] [facility] Lab Results: +/- 30 days of the encounter This section includes the Chemistry and Hematology Lab Results on record with [place] for the patient. Radiology Reports and Pathology Reports are provided separately, in subsequent sections. Lab Results This section contains the Chemistry/Hematology Results that were resulted 30 days before or 30 daysafter the date of the Encounter. Date/Time Source Result Type Result - Unit Interpretation Reference Range Comment Jun 05, 2023 11:57 AM [facility] VITAMIN B-1 (THIAMINE)-(QU) Specimen Type: PLASMA Comment: Vitamin supplementation within 24 hours prior to blood draw may affect the accuracy of the results. This test was developed and its analytical performance characteristics have been determined by [employer] [place], [place]. It has not been cleared or approved by the U.S. Food and Drug Administration. This assay has been validated pursuant to the CLIA regulations and is used for clinical purposes. Test Performed by [facility], [address] [place], [place] Esteban Higuera M.D., Ph.D., Director of Laboratories , CLIA [id number] TEST PERFORMED AT: , Ordering Provider: LUCAS CAI AM Report Released Date/Time: Jun 05, 2023 11:22 AM Reporting Lab: [facility] [address] [facility] [address] Performing Lab: [facility] [address] [address] VITAMIN B-1 (THIAMINE)-(QU) 14 nmol/L 8-30 Jun 05, 2023 11:57 AM [facility] MALARIA/BABESIA EXAM Specimen Type: BLOOD Comment: ~For Test: MALARIA/BABESIA EXAM ~With PBS for CT [place] Hematology Due to the cyclical shed rates of these parasites, one negative specimen does not rule out the possibility of a parasitic infection. Obtain specimens at 6-hour intervals for 36 hours for a comprehensive examination. Test Performed by [facility], [address] [place], [place] Esteban Higuera M.D., Ph.D., Director of Laboratories , CLIA [id number] TEST PERFORMED AT: , Ordering Provider: LUCAS CAI AM Report Released Date/Time: Jun 05, 2023 11:22 AM Reporting Lab: [facility] [place] [facility] [address] [facility] [address] Performing Lab: [facility] [place] [facility] [address] [address] MALARIA/BABESIA EXAM Negative Negative Jun 05, 2023 11:57 AM [facility] [place] [facility] PROTEIN SERUM ELECTROPHORESIS PANEL/CHRIS Specimen Type : SERUM Comment: SER Hypogammaglobul inemia. No monoclonal protein observed. SPEP reviewed by Joel Hidalgo MD Ordering Provider: LUCAS CAI AM Report Released Date/Time: Jun 05, 2023 11:22 AM Reporting Lab: [facility] [place] [facility] [address] [facility] [address] Performing Lab: [facility] [address] [facility] [address] Alpha-1 Globulin 0.18 g/dL L 0.19-0.50 Alpha-2 Globulin 0.54 g/dL 0.46-1.20 Beta Globulin 0.48 g/dL L 0.56-1.18 Albumin 3.85 g/dL 3.13-5.37 A/G Ratio 2.48 H 0.99-1.81 Gamma Globulin 0.35 g/dL L 0.67-1.67 Jun 05, 2023 11:57 AM [facility] FOLATE Specimen Type: SERUM No comment entered. Ordering Provider: LUCAS CAI AM Report Released Date/Time: Jun 05, 2023 11:22 AM Reporting Lab: [place] [facility] [place] [facility] [address] [facility] [address] Performing Lab: [place] [facility] [address] [facility] [address] FOLATE 15.56 ng/mL >5.2 Jun 05, 2023 11:57 AM [place] [facility] FERRITIN Specimen Type: SERUM No comment entered. Ordering Provider: LUACS CAI AM Report Released Date/Time: Jun 05, 2023 11:22 AM Reporting Lab: [place] [facility] [place] [facility] [address] [facility] [address] Performing Lab: [facility] [place] [facility] [address] [facility] [address] FERRITIN 55 ng/mL 20-300 Jun 05, 2023 11:57 AM [facility] IRON & TIBC PANEL Specimen Type: SERUM No comment entered. Ordering Provider: LUCAS CAI AM Report Released Date/Time: Jun 05, 2023 11:22 AM Reporting Lab: [facility] [place] [facility] [address] [facility] [address] Performing Lab: [place] [facility] [place] [facility] [address] [facility] [address] TIBC 411 ug/dL 204-475 IRON 48 ug/dL 40-160 Transferrin Saturation 11.7 L 20.0-50.0 Jun 05, 2023 11:57 AM [facility] VITAMIN B12 Specimen Type: SERUM No comment entered. Ordering Provider: LUCAS CAI AM Report Released Date/Time: Jun 05, 2023 11:22 AM Reporting Lab: [facility] [place] [facility] [address] [facility] [address] Performing Lab: [facility] [address] [address] VITAMIN B12 361 pg/mL 200-900 Jun 05, 2023 11:57 AM [facility] TSH Specimen Type: SERUM No comment entered. Ordering Provider: LUCAS CAI AM Report Released Date/Time: Jun 05, 2023 11:22 AM Reporting Lab: [facility] [place] [facility] [address] [facility] [address] Performing Lab: [facility] [place] [facility] [address] [facility] [address] TSH 1.33 u[IU]/mL 0.35-5.00 Jun 05, 2023 11:57 AM [facility] VITAMIN D (25-[place]) Specimen Type: SERUM No comment entered. Ordering Provider: LUCAS CAI AM Report Released Date/Time: Jun 05, 2023 11:22 AM Reporting Lab: [facility] [address] [facility] [address] Performing Lab: [facility] [address] [facility] [address] VITAMIN D (25-OH) 36 ng/mL 20-50 Jun 05, 2023 11:57 AM [facility] CBC AND DIFF (AUTO) Specimen Type: BLOOD No comment entered. Ordering Provider: LUCAS CAI AM Report Released Date/Time: Jun 05, 2023 11:22 AM Reporting Lab: [facility] [address] [facility] [address] Performing Lab: [facility] [address] [facility] [address] WBC 4.56 10*3/uL 4.50-11.00 RBC 4.32 10*6/uL 4.23-5.66 HGB 12.7 g/dL L 12.8-17 HCT 39.8 39.2-50.4 MCV 92.1 fL 82-99 MCHC 31.9 g/dL 30.8-35.1 PLT 154 10*3/uL 140-360 RDW-CV 14.6 12.0-16.0 [place], Abs 0.87 10*3/uL 0.30-1.10 MCH 29.4 pg 26.2-32.6 Neut % 56.1 43.7-75.8 Lymph % 21.9 14.0-42.3 [place] % 19.1 H 5.1-13.7 Eos % 1.8 0.4-6.8 Baso % 0.9 0.1-2.0 Neut, Abs 2.56 10*3/uL 2.20-7.60 Lymph, Abs 1.00 10*3/uL 1.00-3.20 Eos, Abs 0.08 10*3/uL 0.03-0.44 Baso, Abs 0.04 10*3/uL 0.01-0.13 Immature Gran % 0.2 0.0-0.7 Immature Gran, Abs 0.01 10*3/uL 0.00-0.06 Advance Directives: All historical and current Section Date Range: From patient's date of to the date document was created. This section includes ALL of a patient's completed or amended [place] Advance and Rescinded Directives. The entries below indicate that a directive exists for the patient, but an actual copy is not included with this document. The data comes from all [place] facilities. Date Advance Directives Provider Source Jun 02, 2023 ADVANCE DIRECTIVE MARYANNETRICEJENNIFER [place] [facility] Encounter Notes: All associated encounter notes This section contains the clinical notes associated to the Encounter. Date/Time Encounter Note(s) Provider Source Jun 23, 2023 10:46 AM ALLERGY & IMMUNOLOGY CONSULT: LOCAL TITLE: CONSULT /[place] E-CONSULT STANDARD TITLE: ALLERGY & IMMUNOLOGY CONSULT DATE OF NOTE: JUN 23, 2023@10:46 ENTRY DATE: JUN 23, 2023@10:46:40 AUTHOR: RAMBO FREEMAN MD EXP COSIGNER: URGENCY: STATUS: COMPLETED Asked to perform e-consult on this 83 yo M with hypogammaglobulinemia found on SPEP during workup for anemia. The e-consult request reads: 83 yo male noted to have hypogammglobulinemia on SPEP obtained in workup of mild anemia. [facility]ematology at [facility] e consulted for us and recommended we ask your thoughts. Their note is in JLV and I will past it below as well. Thank you. Assessment and Recommendations: I reviewed the results of the SPEP in JVL, which confirms that the gamma globulin peak is low (0.35 g/dL, nl min 0.67 g/dL) but does not specific the peripheral blood concentrations of IgG, IgM, and IgA. Does the patient have a history of 1) recurrent, severe, invasive, metastatic, treatent refractory, or atypical infections, especially respiratory infections such as pnuemonia? 2) protein calorie malnutrition or chronic diarrhea? 3) chemotherapy, immunosuppressive therapy such as with rituximab, use of an antipsychotic/antiseizure medication such as lamotrigine, or bone marrow transplant? I suggest that new labs be sent to quantitiate perioheral blood IgG, IgG subclasses, iIgM, and IgA. If he has had recurrent infections, I suggest review of his immunization history and checking IgG to specific targets such as Diphtheria, Tetanus, Haemophilus influenza, and Streptococcus pneumoniae serotypes. If the history isconcerning for a primary or secondary immunodeficiency with no clear explanation and these additional tests show abnormalities, please re-consult with those results. Thanks for this consult. /es/ RAMBO FREEMAN MD Attending/Allergy/Immunology Signed: 06/23/2023 10:59 RAMBO FREEMAN MD [facility]
--- OUTSIDE RECORDS SUMMARY | 2024-06-14 13:17 | XMS_ITS | Encounter Summary ---
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 Role Phone TOÑO CAI Primary Care [...] Relationship to Policy Wen [place] MEDICARE SUPPLEMEN MASTER PSUED O MEDEX BRONZ E Mar 19, 2004 [id number] [phone] HOLLIE SHEPHERD PATIENT BCBS [place] MEDICARE SUPPLEMEN MASTER MEDEX BRONZ E Mar 19, 2004 [id number] [phone] HOLLIE SHEPHERD PATIENT BCBS [place] MEDICARE SUPPLEMEN MASTER MEDEX BRONZ E Mar 19, 2004 [id number] [phone] HOLLIE SHEPHERD PATIENT BCBS [facility] MEDICARE SUPPLEMEN MASTER PSUED O MEDEX BRONZ E Mar 19, 2004 [id number] [phone] HOLLIE SHEPHERD PATIENT MEDICARE (WNR) MEDICARE (M) PART B Mar 19, 2004 PART B [id number] [phone] CORA,HOLLIE ALD PATIENT MEDICARE (WNR) MEDICARE (M) PART B Mar 19, 2004 PART B [id number] [phone] HOLLIE SHEPHERD ALD PATIENT MEDICARE (WNR) MEDICARE (M) PART B Mar 19, 2004 PART B [id number] CORAHOLLIE SILVA ALD PATIENT MEDICARE (WNR) MEDICARE (M) PART A Feb 17, 2003 PART A [id number] [phone] HOLLIE SHEPHERD ALD PATIENT MEDICARE (WNR) MEDICARE (M) PART A Feb 17, 2003 PART A [id number] HOLLIE SHEPHERD ALD PATIENT MEDICARE (WNR) MEDICARE (M) PART A Feb 17, 2003 PART A [id number] HOLLIE SHEPHERD ALD PATIENT MEDICARE (WNR) MEDICARE (M) PART A Feb 17, 2003 PART A [id number] HOLLIE SHEPHERD PATIENT MEDICARE (WNR) MEDICARE (M) PART B Feb 17, 2003 PART B [id number] [phone] HOLLIE SHEPHERD PATIENT MEDICARE (WNR) MEDICARE (M) PART A Feb 17, 2003 PART A [id number] HOLLIE SHEPHERD PATIENT MEDICARE (WNR) MEDICARE (M) PART B Feb 17, 2003 PART B [id number] HOLLIE SHEPHERD PATIENT Selected Encounter This section includes the information on record at [place] for the Encounter. Date/Time Encounter Type Encounter Description Reason Pro vider Source Jul 12, 2023 10:37 AM Outpatient Encounter DERMATOLOGY IHE Encounter Template Text not used by [place] Plan of Treatment: Future Appointments (+ 6 months) and Future Tests (+/- 45 days) The Plan of Treatment section includes future care activities for the patient from all [place] treatmentfacilities. This section includes future appointments and [...] - MEDICINE [facility] [place] [facility] Aug 11, 2023 11:00 AM AMBULATORY - MEDICINE [facility] [place] [facility] Oct 09, 2023 10:00 AM AMBULATORY - MEDICINE [facility] [place] [facility] Oct 10, 2023 02:30 PM AMBULATORY - MEDICINE [facility] [place] [facility] October 18, 2023 01:00 PM AMBULATORY [facility] [place] [facility] November 01, 2023 10:30 AM [facility] November 01, 2023 10:30 AM AMBULATORY - [facility]IATRY [facility] [place] [facility] November 01, 2023 11:15 AM AMBULATORY - MEDICINE [facility] [place] [facility] November 01, 2023 01:30 PM AMBULATORY - MEDICINE [facility] [place] [facility] November 02, 2023 11:15 AM AMBULATORY - MEDICINE [facility] [place] [facility] November 02, 2023 11:30 AM AMBULATORY - MEDICINE [facility] [place] [facility] November 06, 2023 02:50 PM AMBULATORY - MEDICINE [facility] [place] [facility] Nov 22, 2023 10:00 AM AMBULATORY - MEDICINE [facility] [place] [facility] Nov 27, 2023 02:00 PM AMBULATORY - MEDICINE [facility] [place] [facility] Lab Results: +/- 30 days of [...] Range Comment Aug 08, 2023 01:07 PM [facility] [place] [facility] MICROALBUMIN CREATININE RATIO PANEL Specimen Type: URINE No comment entered. Ordering Provider: JACINTO CAI Report Released Date/Time: Mar 24, 2023 11:19 AM Reporting Lab: [place] [facility] [place] [address] [address] Performing Lab: [place] [facility] [address] [facility] [address] MICROALBUMIN/CR EATININE RATIO 16.2 mg/g 0-29.9 MICROALBUMIN,QU ANTITATIVE 0.5 mg/dL RR UNAVAIL CREATININE URINE 30.95 mg/dL Aug 03, 2023 08:05 AM [facility] IGG SUBCLASSES PANEL (Q) Specimen Type: SERUM Comment: [facility] Per[facility] by [facility], [employer] [facility], [address] [place] [address] Esteban Higuera M.D., Ph.D., Director of Laboratories , CLIA [id number] TEST PERFORMED AT: , Ordering Provider: JACINTO CAI Report Released Date/Time: Jun 23, 2023 04:50 PM Reporting Lab: [address] [address] Performing Lab: [facility] [address] [address] IGG 1 (q) 202 mg/dL L 382-929 IGG 2 (q) 137 mg/dL L 241-700 IGG 3 (q) 14 mg/dL L 22-178 IGG 4 (q) 15.4 mg/dL 4.0-86.0 IGG, SERUM (q) 380 mg/dL L 600-1540 Aug 03, 2023 08:05 AM [facility] TESTOSTERONE, TOTAL Specimen Type: SERUM No comment entered. Ordering Provider: ALLIE CUELLO Report Released Date/Time: Apr 23, 2023 05:28 PM Reporting Lab: [address] [address] Performing Lab: [facility] [address] [facility] [address] TESTOSTERONE, TOTAL 882.02 ng/dL 220.00-892 .00 Aug 03, 2023 08:05 AM [facility] IGG Specimen Type: SERUM No comment entered. Ordering Provider: JACINTO CAI Report Released Date/Time: Jun 23, 2023 04:50 PM Reporting Lab: [facility] [place] [facility] [address] [facility] [address] Performing Lab: [facility] [place] [facility] [address] [facility] [address] IGG 377 mg/dL L 700-1600 Aug 03, 2023 08:05 AM [facility] IGM Specimen Type: SERUM No comment entered. Ordering Provider: JACINTO CAI Report Released Date/Time: Jun 23, 2023 04:50 PM Reporting Lab: [facility] [address] [facility] [address] Performing Lab: [facility] [address] [facility] [address] IGM 31 mg/dL L 40-230 Aug 03, 2023 08:05 AM [facility] IMMUNOGLOBLIN (IgG,IgM,IgA) Specimen Type: SERUM No comment entered. Ordering Provider: JACINTO CAI Report Released Date/Time: Jun 23, 2023 04:50 PM Reporting Lab: [facility] [address] [facility] [address] Performing Lab: [facility] [address] [facility] [address] IGG 380 mg/dL L 700-1600 IGA 27 mg/dL L 70-400 IGM 30 mg/dL L 40-230 Aug 03, 2023 08:05 AM [facility] BASIC METABOLIC PANEL (non-fasting) Specimen Type: SERUM No comment entered. Ordering Provider: ALLIE CUELLO Report Released Date/Time: Apr 23, 2023 05:27 PM Reporting Lab: [facility] [address] [facility] [address] Performing Lab: [facility] [address] [address] UREA NITROGEN 17 mg/dL 7-25 GLUCOSE 116 mg/dL H 65-100 SODIUM 144 mmol/L 135-145 POTASSIUM 4.1 mmol/L 3.5-5.0 CHLORIDE 104 mmol/L 100-110 CO2 28 meq/L 20-30 CREATININE, Serum 0.89 mg/dL 0.50-1.40 eGFR(CKD-EPI 2020) 83 mL/min >60 Aug 03, 2023 08:05 AM [facility] LIPID PANEL FASTING Specimen Type: SERUM No comment entered. Ordering Provider: ALLIE CUELLO Report Released Date/Time: Apr 23, 2023 05:29 PM Reporting Lab: [address] [address] Performing Lab: [address] [address] CHOLESTEROL 107 mg/dL TRIGLYCERIDE 70 mg/dL 0-150 LDL calculated 50 mg/dL 0-129 CHOL/HDL 2.5 HDL CHOLESTEROL 43 mg/dL 40-60 Aug 03, 2023 08:05 AM [facility] CBC Specimen Type: BLOOD No comment entered. Ordering Provider: ALLIE CUELLO Report Released Date/Time: Apr 23, 2023 05:28 PM Reporting Lab: [address] [address] Performing Lab: [address] [address] WBC 4.75 10*3/uL 4.50-11.00 RBC 4.81 10*6/uL 4.23-5.66 HGB 13.6 g/dL 12.8-17 HCT 42.4 39.2-50.4 MCV 88.1 fL 82-99 MCHC 32.1 g/dL 30.8-35.1 PLT 150 10*3/uL 140-360 RDW-CV 13.5 12.0-16.0 MCH 28.3 pg 26.2-32.6 Aug 03, 2023 08:05 AM [facility] CBC AND DIFF (AUTO) Specimen Type: BLOOD No comment entered. Ordering Provider: JACINTO CAI Report Released Date/Time: Jun 23, 2023 04:50 PM Reporting Lab: [address] [address] Performing Lab: [facility] [address] [facility] [address] WBC 4.75 10*3/uL 4.50-11.00 RBC 4.81 10*6/uL 4.23-5.66 HGB 13.6 g/dL 12.8-17 HCT 42.4 39.2-50.4 MCV 88.1 fL 82-99 MCHC 32.1 g/dL 30.8-35.1 PLT 150 10*3/uL 140-360 RDW-CV 13.5 12.0-16.0 [place], Abs 1.04 10*3/uL 0.30-1.10 MCH 28.3 pg 26.2-32.6 Neut % 42.5 L 43.7-75.8 Lymph % 33.5 14.0-42.3 [place] % 21.9 H 5.1-13.7 Eos % 1.3 0.4-6.8 Baso % 0.6 0.1-2.0 Neut, Abs 2.02 10*3/uL L 2.20-7.60 Lymph, Abs 1.59 10*3/uL 1.00-3.20 Eos, Abs 0.06 10*3/uL 0.03-0.44 Baso, Abs 0.03 10*3/uL 0.01-0.13 Immature Gran % 0.2 0.0-0.7 Immature Gran, Abs 0.01 10*3/uL 0.00-0.06 Aug 03, 2023 08:04 AM [facility] HEMOGLOBIN A1C PANEL Specimen Type: BLOOD [...] Mar 24, 2023 11:19 AM Reporting Lab: [facility] [address] [facility] [address] Performing Lab: [facility] [address] [facility] [address] HEMOGLOBIN A1C 6.0 H 4.0-5.6 Aug 03, 2023 08:04 AM [facility] LIVER FUNCTION Specimen Type: SERUM No comment entered. Ordering Provider: JACINTO CAI Report Released Date/Time: Mar 24, 2023 11:19 AM Reporting Lab: [facility] [address] [facility] [address] Performing Lab: [address] [address] PROTEIN,TOTAL 5.6 g/dL L 6.0-8.3 ALBUMIN 4.0 [...] took place. Date/Time Current Smoking Status Comment [facility] Jun 05, 2023 11:00 AM VA-TOBACCO FORMER USER [facility] Tobacco Use History This section includes a history of the smoking, or tobacco-related health factors, that were collected on or before the date of the Encounter. The data comes from the [place] facility where the Encounter took place. Date/Time Smoking Status/Tobac co Use Comment Facility Jun 05, 2023 11:00 AM VA-TOBACCO QUIT 15 YRS OR MORE [facility] Jun 06, 2022 01:00 PM VA-TOBACCO FORMER USER [facility] Jun 06, 2022 01:00 PM VA-TOBACCO QUIT 15 YRS OR MORE [facility] Jun 30, 2021 02:37 PM VA-TOBACCO FORMER USER [facility]ITAL[facility] Jun 30, 2021 02:37 PM VA-TOBACCO QUIT 5 TO < 15 YRS [place] [facility] [place] [facility] May 22, 2020 03:30 PM VA-TOBACCO NEVER USED [place] [facility] [place] [facility] May 08, 2018 02:03 PM VA-TOBACCO FORMER USER [place] [facility] [place] [facility] May 08, 2018 02:03 PM VA-TOBACCO QUIT 15 YRS OR MORE [place] [facility] November 10, 2017 02:33 PM QUIT TOBACCO USE > 7 YEARS AGO [place] [facility] [place] [facility] October 21, 2016 01:55 PM QUIT TOBACCO USE > 7 YEARS AGO [facility] [place] [facility] Sep 18, 2015 11:24 AM QUIT TOBACCO USE > 7 YEARS AGO stopped 50 years ago [place] [facility] May 19, 2005 08:01 AM HISTORY OF SMOKING [place] [facility] May 31, 2004 01:02 PM HISTORY OF SMOKING [place] [facility] Jun 04, 2003 07:57 AM HISTORY OF SMOKING [place] [facility] Jun 03, 2002 01:11 PM HISTORY OF SMOKING [facility] Jun 03, 2002 01:11 PM QUIT TOBACCO USE > 7 YEARS AGO [facility] Advance Directives: All historical and current Section Date Range: From patient's date of to the date document was created. This section includes ALL of a patient's completed or amended [place] Advance and Rescinded Directives. The entries below indicate that a directive exists for the patient, but an actual copy is not included with this document. The data comes from all [place] facilities. Date Advance Directives Provider Source Jun 02, 2023 ADVANCE DIRECTIVE JENNIFER QUIROS [facility] RL [facility] Encounter Notes: All associated encounter notes This section contains the clinical notes associated to the Encounter. Date/Time Encounter Note(s) Provider Source Jul 12, 2023 01:03 PM ADDENDUM: LOCAL TITLE: Addendum STANDARD TITLE: ADDENDUM DATE OF NOTE: JUL 12, 2023@13:03:50 ENTRY DATE: JUL 12, 2023@13:03:51 AUTHOR: GALLOWAY,TODD EXP COSIGNER: URGENCY: STATUS: COMPLETED Davidson agreed to 07/13/23 at 11 am. Please schedule appt . Davidson is already aware of date and time for appt. /benny GALLOWAY LPN LPN Signed: 07/12/2023 13:04 Receipt Acknowledged By: 07/12/2023 13:38 /benny PALACIOS ADVANCED TRANSFUSION NURSE 07/13/2023 07:31 /thomas/ ALBINO LOPEZ TRANSFUSION NURSE === --- Original Document --- 07/12/23 TELEPHONE NOTE/SPECIALTY CLINIC: Davidson came in office and would like to know if he could be seen sooner. Has a rash on his face and some red spots that he is concerned about. The soonest available appt was for 07/26 @ 7:30am but he preferred the message to be sent so he could get further instruction. Wanted to be seen today but there was nothing available. Would like a call on his primary number [phone]. /benny PALACIOS ADVANCED TRANSFUSION NURSE Signed: 07/12/2023 10:40 Receipt Acknowledged By: 07/12/2023 13:20 /es/ VEGA PENA DNP, WASTEWATER MANAGER-C NURSE PRACTITIONER 07/12/2023 13:06 /thomas/ TODD GALLOWAY LPN LPN 07/13/2023 ADDENDUM STATUS: UNSIGNED You may not VIEW this UNSIGNED Addendum. TODD GALLOWAY [facility] [place] [facility] Jul 12, 2023 10:37 AM TELEPHONE ENCOUNTE R NOTE: LOCAL TITLE: TELEPHONE NOTE/SPECIALTY CLINIC STANDARD TITLE: TELEPHONE ENCOUNTER NOTE DATE OF NOTE: JUL 12, 2023@10:37 ENTRY DATE: JUL 12, 2023@10:37:36 AUTHOR: SURJIT PALACIOS EXP COSIGNER: URGENCY: STATUS: COMPLETED TELEPHONE NOTE/SPECIALTY CLINIC Has ADDENDA came in office and would like to know if he could be seen sooner. Has a rash on his face and some red spots that he is concerned about. The soonest available appt was for 07/26 @ 7:30am but he preferred the message to be sent so he could get further instruction. Wanted to be seen today but there was nothing available. Would like a call on his primary number [phone]. /thomas/ SURJIT PALACIOS ADVANCED TRANSFUSION NURSE Signed: 07/12/2023 10:40 Receipt Acknowledged By: 07/12/2023 13:20 /es/ VEGA PENA, JUDD, WASTEWATER MANAGER-C NURSE PRACTITIONER 07/12/2023 13:06 /thomas/ TODD GALLOWAY LPN LPN 07/12/2023 ADDENDUM STATUS: COMPLETED Davidson agreed to 07/13/23 at 11 am. Please schedule appt . is already aware of date and time for appt. /thomas/ TODD GALLOWAY LPN LPN Signed: 07/12/2023 13:04 Receipt Acknowledged By: 07/12/2023 13:38 /thomas/ SURJIT PALACIOS ADVANCED TRANSFUSION NURSE 07/13/2023 07:31 /thomas/ ALBINO LOPEZ TRANSFUSION NURSE 07/13/2023 ADDENDUM STATUS: COMPLETED scheduled 07/13/2023 @ 11am /benny LOPEZ TRANSFUSION NURSE Signed: 07/13/2023 07:32 SURJIT PALACIOS [place] [facility]
--- OUTSIDE RECORDS SUMMARY | 2024-06-14 13:18 | XMS_ITS | Encounter Summary ---
Author Name [facility] [place] Organization [place] Address [address] [place] [id number] Care Team Providers Care Preassembler And Inspector Name Role Phone TOÑO CAI Primary Care [...] Relationship to Policy Wen LUKE BCBS [place] MEDICARE SUPPLEMEN MASTER PSUED O MEDEX BRONZ E Mar 19, 2004 [id number] HOLLIE SHEPHERD PATIENT [place] MED[place] SUPPLEMEN MASTER MEDEX BRONZ E Mar 19, 2004 [id number] [phone] HOLLIE SHEPHERD [place] SUPPLEMEN MASTER MEDEX BRONZ E Mar 19, 2004 [id number] [phone] HOLLIE SHEPHERD PATIENT BCBS [facility] [place] MEDICARE SUPPLEMEN MASTER PSUED O MEDEX BRONZ E Mar 19, 2004 [id number] [phone] HOLLIE SHEPHERD PATIENT MEDICARE (WNR) MEDICARE (M) PART B Mar 19, 2004 PART B [id number] CORA,HOLLIE ALD PATIENT MEDICARE (WNR) MEDICARE (M) PART B Mar 19, 2004 PART B [id number] CORAHOLLIE SILVA ALD PATIENT MEDICARE (WNR) MEDICARE (M) PART B Mar 19, 2004 PART B [id number] [phone] CORAHOLLIE SILVA ALD PATIENT MEDICARE (WNR) MEDICARE (M) PART A Feb 17, 2003 PART A [id number] [phone] CORAHOLLIE SILVA ALD PATIENT MEDICARE (WNR) MEDICARE (M) PART A Feb 17, 2003 PART A [id number] CORAHOLLIE SILVA ALD PATIENT MEDICARE (WNR) MEDICARE (M) PART A Feb 17, 2003 PART A [id number] HOLLIE SHEPHERD ALD PATIENT MEDICARE (WNR) MEDICARE (M) PART A Feb 17, 2003 PART A [id number] HOLLIE SHEPHERD ALD PATIENT MEDICARE (WNR) MEDICARE (M) PART B Feb 17, 2003 PART B [id number] [phone] HOLLIE SHEPHERD PATIENT MEDICARE (WNR) MEDICARE (M) PART A Feb 17, 2003 PART A [id number] HOLLIE SHEPHERD PATIENT MEDICARE (WNR) MEDICARE (M) PART B Feb 17, 2003 PART B [id number] HOLLIE SHEPHERD PATIENT Selected Encounter This section includes the information on record at [place] for the Encounter. 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 Date/Time Primary/Secondary Diagnosis Diagnosis Name Provider Source Aug 12, 2023 09:05 AM PRIMARY Type 2 diabetes mellitus with unspecified complications [facility] [place] [facility] Aug 12, 2023 09:05 AM SECONDARY Presence of insulin pump (external) (internal) CUELLO,ALLIE [facility] [place] [facility] Plan of Treatment: Future Appointments (+ 6 months) and Future Tests (+/- 45 days) The Plan of Treatment section includes future care activities for the patient from all [place] [facility]. This section includes future appointments and future orders which are active, pending or scheduled. Future Appointments This section includes appointments that were scheduled to occur 6 months from the date of the Encounter, up to a maximum of 20 appointments. The data comes from all [place] treatment facilities. Appointment Date/Time Appointment Type Appointme nt Facility Name Oct 09, 2023 10:00 AM AMBULATORY - MEDICINE [facility] [place] [facility] Oct 10, 2023 02:30 PM AMBULATORY - MEDICINE [facility] [place] [facility] October 18, 2023 01:00 PM AMBULATORY - MEDICINE [facility] [place] [facility] November 01, 2023 10:30 AM AMBULATORY - [place]RY [place] [facility] November 01, 2023 10:30 AM AMBULATORY - PSYCHIATRY [place] [facility] [place] [facility] November 01, 2023 11:15 AM AMBULATORY - MEDICINE [facility] [place] [facility] November 01, 2023 01:30 PM AMBULATORY - MEDICINE [place] [facility] [place] [facility] November 02, 2023 11:15 AM AMBULATORY - MEDICINE [place] [facility] [place] [facility] November 02, 2023 11:30 AM AMBULATORY - MEDICINE [place] [facility] [place] [facility] November 06, 2023 02:50 PM AMBULATORY - MEDICINE [place] [facility] [place] [facility] Nov 22, 2023 10:00 AM AMBULATORY - MEDICINE [place] [facility] [place] [facility] Nov 27, 2023 02:00 PM AMBULATORY - MEDICINE [place] [facility] [place] [facility] Lab Results: +/- 30 days of the encounter This section includes the Chemistry and Hematology Lab Results on record with [place] for the patient. Radiology Reports and Pathology Reports are provided separately, in subsequent sections. Lab Results This section contains the Chemistry/Hematology Results that were resulted 30 days before or 30 daysafter the date of the Encounter. Date/Time Source Result Type Result - Unit Interpretation Reference Range Comment Aug 08, 2023 01:07 PM [facility] [place] [facility] MICROALBUMIN CREATININE RATIO PANEL Specimen Type: URINE No comment entered. Ordering Provider: JACINTO CAI Report Released Date/Time: Mar 24, 2023 11:19 AM Reporting Lab: [facility] [address] [address] Performing Lab: [facility] [address] [address] MICROALBUMIN/CR EATININE RATIO 16.2 mg/g 0-29.9 MICROALBUMIN,QU ANTITATIVE 0.5 mg/dL RR UNAVAIL CREATININE URINE 30.95 mg/dL Aug 03, 2023 08:05 AM [facility] IGG SUBCLASSES PANEL (Q) Specimen Type: SERUM Comment: Test Performed by [facility], [address] [place] [address] Esteban Higuera M.D., Ph.D., Director of Laboratories , CLIA [id number] TEST PERFORMED AT: , Ordering Provider: JACINTO CAI Report Released Date/Time: Jun 23, 2023 04:50 PM Reporting Lab: [address] [address] Performing Lab: [facility] [address] [address] IGG 1 (q) 202 mg/dL L 382-929 IGG 2 (q) 137 mg/dL L 241-700 IGG 3 (q) 14 mg/dL L 22-178 IGG 4 (q) 15.4 mg/dL 4.0-86.0 IGG, SERUM (q) 380 mg/dL L 600-1540 Aug 03, 2023 08:05 AM [facility] TESTOSTERONE, TOTAL Specimen Type: SERUM No comment entered. Ordering Provider: ALLIE CUELLO Report Released Date/Time: Apr 23, 2023 05:28 PM Reporting Lab: [address] [address] Performing Lab: [address] [address] TESTOSTERONE, TOTAL 882.02 ng/dL 220.00-892 .00 Aug 03, 2023 08:05 AM [facility] IGG Specimen Type: SERUM No comment entered. Ordering Provider: JACINTO CAI Report Released Date/Time: Jun 23, 2023 04:50 PM Reporting Lab[facility] [address] [address] Performing Lab: [facility] [address] [address] IGG 377 mg/dL L 700-1600 Aug 03, 2023 08:05 AM [facility] IGM Specimen Type: SERUM No comment entered. Ordering Provider: JACINTO CAI Report Released Date/Time: Jun 23, 2023 04:50 PM Reporting Lab: [facility] [address] [address] Performing Lab: [facility] [address] [facility] [address] IGM 31 mg/dL L 40-230 Aug 03, 2023 08:05 AM [facility] IMMUNOGLOBLIN (IgG,IgM,IgA) Specimen Type: SERUM No comment entered. Ordering Provider: JACINTO CAI Report Released Date/Time: Jun 23, 2023 04:50 PM Reporting Lab: [facility] [address] [address] Performing Lab: [facility] [address] [facility] [address] IGG 380 mg/dL L 700-1600 IGA 27 mg/dL L 70-400 IGM 30 mg/dL L 40-230 Aug 03, 2023 08:05 AM [facility] BASIC METABOLIC PANEL (non-fasting) Specimen Type: SERUM No comment entered. Ordering Provider: ALLIE CUELLO Report Released Date/Time: Apr 23, 2023 05:27 PM Reporting Lab: [facility] [address] [address] Performing Lab: [facility] [address] [address] UREA NITROGEN 17 mg/dL 7-25 GLUCOSE 116 mg/dL H 65-100 SODIUM 144 mmol/L 135-145 POTASSIUM 4.1 mmol/L 3.5-5.0 CHLORIDE 104 mmol/L 100-110 CO2 28 meq/L 20-30 CREATININE, Serum 0.89 mg/dL 0.50-1.40 eGFR(CKD-EPI 2020) 83 mL/min >60 Aug 03, 2023 08:05 AM [facility] LIPID PANEL FASTING Specimen Type: SERUM No comment entered. Ordering Provider: ALLIE CUELLO Report Released Date/Time: Apr 23, 2023 05:29 PM Reporting Lab: [facility] [address] [address] Performing Lab: [address] [address] CHOLESTEROL 107 mg/dL TRIGLYCERIDE 70 mg/dL 0-150 LDL calculated 50 mg/dL 0-129 CHOL/HDL 2.5 HDL CHOLESTEROL 43 mg/dL 40-60 Aug 03, 2023 08:05 AM [facility] CBC Specimen Type: BLOOD No comment entered. Ordering Provider: ALLIE CUELLO Report Released Date/Time: Apr 23, 2023 05:28 PM Reporting Lab: [address] [address] Performing Lab: [address] [address] WBC 4.75 10*3/uL 4.50-11.00 RBC 4.81 10*6/uL 4.23-5.66 HGB 13.6 g/dL 12.8-17 HCT 42.4 39.2-50.4 MCV 88.1 fL 82-99 MCHC 32.1 g/dL 30.8-35.1 PLT 150 10*3/uL 140-360 RDW-CV 13.5 12.0-16.0 MCH 28.3 pg 26.2-32.6 Aug 03, 2023 08:05 AM [facility] CBC AND DIFF (AUTO) Specimen Type: BLOOD No comment entered. Ordering Provider: JACINTO CAI Report Released Date/Time: Jun 23, 2023 04:50 PM Reporting Lab: [facility] [address] [address] Performing Lab: [facility] [address] [address] WBC 4.75 10*3/uL 4.50-11.00 RBC 4.81 10*6/uL 4.23-5.66 HGB 13.6 g/dL 12.8-17 HCT 42.4 39.2-50.4 MCV 88.1 fL 82-99 MCHC 32.1 g/dL 30.8-35.1 PLT 150 10*3/uL 140-360 RDW-CV 13.5 12.0-16.0 Sutter, Abs 1.04 10*3/uL 0.30-1.10 MCH 28.3 pg 26.2-32.6 Neut % 42.5 L 43.7-75.8 Lymph % 33.5 14.0-42.3 Sutter % 21.9 H 5.1-13.7 Eos % 1.3 0.4-6.8 Baso % 0.6 0.1-2.0 Neut, Abs 2.02 10*3/uL L 2.20-7.60 Lymph, Abs 1.59 10*3/uL 1.00-3.20 Eos, Abs 0.06 10*3/uL 0.03-0.44 Baso, Abs 0.03 10*3/uL 0.01-0.13 Immature Gran % 0.2 0.0-0.7 Immature Gran, Abs 0.01 10*3/uL 0.00-0.06 Aug 03, 2023 08:04 AM [facility] HEMOGLOBIN A1C PANEL Specimen Type: BLOOD [...] Mar 24, 2023 11:19 AM Reporting Lab: [address] [address] Performing Lab: [address] [address] HEMOGLOBIN A1C 6.0 H 4.0-5.6 Aug 03, 2023 08:04 AM [facility] LIVER FUNCTION Specimen Type: SERUM No comment entered. Ordering Provider: JACINTO CAI Report Released Date/Time: Mar 24, 2023 11:19 AM Reporting Lab: [address] [address] Performing Lab: [address] [address] PROTEIN,TOTAL 5.6 g/dL L 6.0-8.3 ALBUMIN 4.0 g/dL 3.5-5.0 ALKALINE PHOSPHATASE 80 U/L 40-150 AST 23 U/L 5-34 ALT 36 U/L BILIRUBIN, TOTAL 0.8 mg/dL 0.2-1.2 Social History: Smoking Status (Most current) and Tobacco Use (All prior to encounter date) This section includes the most current, and the historical, smoking and tobacco- related health factors from the [place] facility where the Encounter took place. Current Smoking Status This section includes the most current smoking, or tobacco-related health factor, from the [place] facility where the Encounter took place. Date/Time Current Smoking Status Comment [facility] Jun 05, 2023 11:00 AM VA-TOBACCO FORMER USER [facility] Tobacco Use History This section includes a history of the smoking, or tobacco-related health factors, that were collected on or before the date of the Encounter. The data comes from the [place] facility where the Encounter took place. Date/Time Smoking Status/Tobac co Use Comment Facility Jun 05, 2023 11:00 AM MT-TOBACCO QUIT 15 YRS OR MORE [facility] Jun 06, 2022 01:00 PM VA-TOBACCO FORMER USER [facility] [place] [facility] Jun 06, 2022 01:00 PM VA-TOBACCO QUIT 15 YRS OR MORE [facility] [place] [facility] Jun 30, 2021 02:37 PM VA-TOBACCO FORMER USER [facility] [place] [facility] Jun 30, 2021 02:37 PM VA-TOBACCO QUIT 5 TO < 15 YRS [facility] [place] [facility] May 22, 2020 03:30 PM VA-TOBACCO NEVER USED [facility] [place] [facility] May 08, 2018 02:03 PM VA-TOBACCO FORMER USER [facility] [place] [facility] May 08, 2018 02:03 PM VA-TOBACCO QUIT 15 YRS OR MORE [facility] [place] [facility] November 10, 2017 02:33 PM QUIT TOBACCO USE > 7 YEARS AGO [facility] [place] [facility] October 21, 2016 01:55 PM QUIT TOBACCO USE > 7 YEARS AGO [facility] [place] [facility] Sep 18, 2015 11:24 AM QUIT TOBACCO USE > 7 YEARS AGO stopped 50 years ago [facility] [place] [facility] May 19, 2005 08:01 AM HISTORY OF SMOKING [facility] [place] [facility] May 31, 2004 01:02 PM HISTORY OF SMOKING [facility] [place] [facility] Jun 04, 2003 07:57 AM HISTORY OF SMOKING [facility] [place] [facility] Jun 03, 2002 01:11 PM HISTORY OF SMOKING [facility] [place] [facility] Jun 03, 2002 01:11 PM QUIT TOBACCO USE > 7 YEARS AGO [facility] Advance Directives: All historical and current Section Date Range: From patient's date of to the date document was created. This section includes ALL of a patient's completed or amended [place] Advance and Rescinded Directives. The entries below indicate that a directive exists for the patient, but an actual copy is not included with this document. The data comes from all [place] facilities. Date Advance Directives Provider Source Jun 02, 2023 ADVANCE DIRECTIVE JENNIFER QUIROS [facility] Encounter Notes: All associated encounter notes This section contains the clinical notes associated to the Encounter. Date/Time Encounter Note(s) Provider Source Aug 12, 2023 09:05 AM PHYSICIAN NOTE: LOCAL TITLE: MD NOTE STANDARD TITLE: PHYSICIAN NOTE DATE OF NOTE: AUG 12, 2023@09:05 ENTRY DATE: AUG 12, 2023@09:05:43 AUTHOR: ALLIE CUELLO COSIGNER: URGENCY: STATUS: COMPLETED DM 2, Spoke with patient about all recent labs. He has to take food to avoid low bg about three times a day. He also sees a non VA dietetic intern. He will be getting a new aortic valve. In April, upload was fine. He has an outside dietetic intern who manages his pump. Discussed hgba1c targets and rationale. He sees her next week, and will discuss with her that despite not having frequesnt low bg, this is becuase he is needing to eat to prevent hypoglycemia. 10 min telephone encounter. /thomas/ ALLIE CUELLO MD STAFF PHYSICIAN Signed: 08/12/2023 09:14 ALLIE CUELLO [facility]
--- OUTSIDE RECORDS SUMMARY | 2024-06-14 13:18 | XMS_ITS | Encounter Summary ---
Author Name [facility] [place] Address [address] [place] [address] Care Team Providers Care Protection Engineer Name Role Phone TOÑO CAI Primary Care [...] O MEDEX BRONZ E Mar 19, 2004 [id number] [phone] HOLLIE SHEPHERD PATIENT [place] SUPPLEMEN MASTER MEDEX BRONZ E Mar 19, 2004 [id number] [phone] HOLLIE SHEPHERD PATIENT [place] SUPPLEMEN MASTER MEDEX BRONZ E Mar 19, 2004 [id number] [phone] HOLLIE SHEPHERD PATIENT BCBS [facility] MEDICARE SUPPLEMEN MASTER PSUED O MEDEX BRONZ E Mar 19, 2004 [id number] [phone] HOLLIE SHEPHERD PATIENT MEDICARE (WNR) MEDICARE (M) PART B Mar 19, 2004 PART B [id number] HOLLIE SHEPHERD PATIENT MEDICARE (WNR) MEDICARE (M) PART B Mar 19, 2004 PART B [id number] [phone] CORAHOLLIE SILVA ALD PATIENT MEDICARE (WNR) MEDICARE (M) PART B Mar 19, 2004 PART B [id number] CORA,HOLLIE ALD PATIENT MEDICARE (WNR) MEDICARE (M) PART A Feb 17, 2003 PART A [id number] [phone] CORA,HOLLIE ALD PATIENT MEDICARE (WNR) MEDICARE (M) PART A Feb 17, 2003 PART A [id number] CORAHOLLIE SILVA ALD PATIENT MEDICARE (WNR) MEDICARE (M) PART A Feb 17, 2003 PART A [id number] CORAHOLLIE SILVA ALD PATIENT MEDICARE (WNR) MEDICARE (M) PART A Feb 17, 2003 PART A [id number] [phone] CORAHOLLIE SILVA ALD PATIENT MEDICARE (WNR) MEDICARE (M) PART B Feb 17, 2003 PART B [id number] CORAHOLLIE SILVA ALD PATIENT MEDICARE (WNR) MEDICARE (M) PART A Feb 17, 2003 PART A [id number] HOLLIE SHEPHERD ALD PATIENT MEDICARE (WNR) MEDICARE (M) PART B Feb 17, 2003 PART B [id number] HOLLIE SHEPHERD PATIENT Selected Encounter This section includes the information on record at [place] for the Encounter. Date/Time Encounter Type Encounter Description Reason Pro vider Source IHE Encounter Template Text not used by [place] Advance Directives: All historical and current Section Date Range: From patient's date of to the date document was created. This section includes ALL of a patient's completed or amended [place] Advance and Rescinded Directives. The entries below indicate that a directive exists for the patient, but an actual copy is not included with this document. The data comes from all [place] facilities. Date Advance Directives Provider Source Jun 02, 2023 ADVANCE DIRECTIVE JENNIFER QUIROS [facility]
--- OUTSIDE RECORDS SUMMARY | 2024-06-14 13:18 | XMS_ITS | Encounter Summary ---
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 E Mar 19, 2004 [id number] HOLLIE SHEPHERD [place]IENT [place] SUPPLEMEN MASTER MEDEX [facility] E Mar 19, 2004 [id number] [phone] HOLLIE SHEPHERD [place] SUPPLEMEN MASTER MEDEX [facility] E Mar 19, 2004 [id number] [phone] HOLLIE SHEPHERD PATIENT BCBS [facility] MEDICARE SUPPLEMEN MASTER PSUED O MEDEX [facility] E Mar 19, 2004 [id number] HOLLIE SHEPHERD PATIENT MEDICARE (WNR) MEDICARE (M) PART B Mar 19, 2004 PART B [id number] HOLLIE SHEPHERD PATIENT MEDICARE (WNR) MEDICARE (M) PART B Mar 19, 2004 PART B [id number] HOLLIE SHEPHERD ALD PATIENT MEDICARE (WNR) MEDICARE (M) PART B Mar 19, 2004 PART B [id number] CORAHOLLIE SILVA ALD PATIENT MEDICARE (WNR) MEDICARE (M) PART A Feb 17, 2003 PART A [id number] CORAHOLLIE SILVA ALD PATIENT MEDICARE (WNR) MEDICARE (M) PART A Feb 17, 2003 PART A [id number] CORAHOLLIE SILVA ALD PATIENT MEDICARE (WNR) MEDICARE (M) PART A Feb 17, 2003 PART A [id number] HOLLIE SHEPHERD PATIENT MEDICARE (WNR) MEDICARE (M) PART A Feb 17, 2003 PART A [id number] CORAHOLLIE SILVA ALD PATIENT MEDICARE (WNR) MEDICARE (M) PART B Feb 17, 2003 PART B [id number] [phone] HOLLIE SHEPHERD PATIENT MEDICARE (WNR) MEDICARE (M) PART A Feb 17, 2003 PART A [id number] HOLLIE SHEPHERD PATIENT MEDICARE (WNR) MEDICARE (M) PART B Feb 17, 2003 PART B [id number] HOLLIE SHEPHERD PATIENT Selected Encounter This section includes the information on record at [place] for the Encounter. Date/Time Encounter Type Encounter Description Reason Provider Source Aug 11, 2023 11:00 AM OFFICE O/P EST MOD 30 MIN PRIMARY CARE/MEDICINE ICD-10-CM I10 Essential (primary) hypertension JACINTO PETER E Encounter Template Text not used by [place] Assessments - Encounter Diagnoses This section includes the primary and secondary diagnoses documented for the Encounter. Date/Time Primary/Secondary Diagnosis Diagnosis Name Provider Source Aug 23, 2023 08:41 AM PRIMARY Essential (primary) hypertension JACINTO PETER [place] [facility] Plan of Treatment: Future Appointments (+ 6 months) and Future Tests (+/- 45 days) The Plan of Treatment section includes future care activities for the patient from all [place] [facility]. This section includes future appointments and future [...] - MEDICINE [facility] Oct 10, 2023 02:30 PM AMBULATORY - MEDICINE [facility] October 18, 2023 01:00 PM AMBULATORY - MEDICINE [facility] November 01, 2023 10:30 AM AM[facility] November 01, 2023 10:30 AM AMBULATORY - PSYCHIATRY [facility] November 01, 2023 11:15 AM AMBULATORY - MEDICINE [facility] November 01, 2023 01:30 PM AMBULATORY - MEDICINE [facility] November 02, 2023 11:15 AM AMBULATORY - MEDICINE [facility] November 02, 2023 11:30 AM AMBULATORY - MEDICINE [facility] November 06, 2023 02:50 PM AMBULATORY - MEDICINE [facility] Nov 22, 2023 10:00 AM AMBULATORY - MEDICINE [facility] Nov 27, 2023 02:00 PM AMBULATORY - MEDICINE [place] [facility] Lab Results: +/- 30 days of the [...] 2023 01:07 PM [facility] MICROALBUMIN CREATININE RATIO PANEL Specimen Type: URINE No comment entered. Ordering Provider: JACINTO PETER Report Released Date/Time: Mar 24, 2023 11:19 AM Reporting Lab: [address] [address] Performing Lab: [address] [address] MICROALBUMIN/CR EATININE RATIO 16.2 mg/g 0-29.9 MICROALBUMIN,QU ANTITATIVE 0.5 mg/dL RR UNAVAIL CREATININE URINE 30.95 mg/dL Aug 03, 2023 08:05 AM [facility] IGG SUBCLASSES PANEL (Q) Specimen Type: SERUM Comment: Test Performed by [employer] [facility] [place], [facility], [address] [place] [address] Esteban Higuera M.D., Ph.D., Director of Laboratories , CLIA [id number] TEST PERFORMED AT: , Ordering Provider: JACINTO PETER Report Released Date/Time: Jun 23, 2023 04:50 PM Reporting Lab: [address] [address] Performing Lab: [facility] [address] [address] IGG 1 (q) 202 mg/dL L 382-929 IGG 2 (q) 137 mg/dL L 241-700 IGG 3 (q) 14 mg/dL L 22-178 IGG 4 (q) 15.4 mg/dL 4.0-86.0 IGG, SERUM (q) 380 mg/dL L 600-1540 Aug 03, 2023 08:05 AM [facility] TESTOSTERONE, TOTAL Specimen Type: SERUM No comment entered. Ordering Provider: ALLIE CUELLO Report Released Date/Time: Apr 23, 2023 05:28 PM Reporting Lab: [address] [address] Performing Lab: [address] [address] TESTOSTERONE, TOTAL 882.02 ng/dL 220.00-892 .00 Aug 03, 2023 08:05 AM [facility] IGG Specimen Type: SERUM No comment entered. Ordering Provider: JACINTO PETER Report Released Date/Time: Jun 23, 2023 04:50 PM Reporting Lab: [facility] [address] [facility] [address] Performing Lab: [facility] [address] [facility] [address] IGG 377 mg/dL L 700-1600 Aug 03, 2023 08:05 AM [facility] IGM Specimen Type: SERUM No comment entered. Ordering Provider: JACINTO PTEER Report Released Date/Time: Jun 23, 2023 04:50 PM Reporting Lab: [facility] [address] [facility] [address] Performing Lab: [place] [facility] [address] [facility] [address] IGM 31 mg/dL L 40-230 Aug 03, 2023 08:05 AM [facility] IMMUNOGLOBLIN (IgG,IgM,IgA) Specimen Type: SERUM No comment entered. Ordering Provider: JACINTO PETER Report Released Date/Time: Jun 23, 2023 04:50 PM Reporting Lab: [facility] [address] [facility] [address] Performing Lab: [place] [facility] [address] [facility] [address] IGG 380 mg/dL L 700-1600 IGA 27 mg/dL L 70-400 IGM 30 mg/dL L 40-230 Aug 03, 2023 08:05 AM [facility] BASIC METABOLIC PANEL (non-fasting) Specimen Type: SERUM No comment entered. Ordering Provider: ALLIE CUELLO Report Released Date/Time: Apr 23, 2023 05:27 PM Reporting Lab: [facility] [address] [facility] [address] Performing Lab: [place] [facility] [address] [address] UREA NITROGEN 17 mg/dL 7-25 GLUCOSE 116 mg/dL H 65-100 SODIUM 144 mmol/L 135-145 POTASSIUM 4.1 mmol/L 3.5-5.0 CHLORIDE 104 mmol/L 100-110 CO2 28 meq/L 20-30 CREATININE, Serum 0.89 mg/dL 0.50-1.40 eGFR(CKD-EPI 2020) 83 mL/min >60 Aug 03, 2023 08:05 AM [facility] LIPID PANEL FASTING Specimen Type: SERUM No comment entered. Ordering Provider: ALLIE CUELLO Report Released Date/Time: Apr 23, 2023 05:29 PM Reporting Lab: [address] [address] Performing Lab: [address] [address] CHOLESTEROL 107 mg/dL TRIGLYCERIDE 70 mg/dL 0-150 LDL calculated 50 mg/dL 0-129 CHOL/HDL 2.5 HDL CHOLESTEROL 43 mg/dL 40-60 Aug 03, 2023 08:05 AM [facility] CBC Specimen Type: BLOOD No comment entered. Ordering Provider: ALLIE CUELLO Report Released Date/Time: Apr 23, 2023 05:28 PM Reporting Lab: [address] [address] Performing Lab: [address] [address] WBC 4.75 10*3/uL 4.50-11.00 RBC 4.81 10*6/uL 4.23-5.66 HGB 13.6 g/dL 12.8-17 HCT 42.4 39.2-50.4 MCV 88.1 fL 82-99 MCHC 32.1 g/dL 30.8-35.1 PLT 150 10*3/uL 140-360 RDW-CV 13.5 12.0-16.0 MCH 28.3 pg 26.2-32.6 Aug 03, 2023 08:05 AM [facility] CBC AND DIFF (AUTO) Specimen Type: BLOOD No comment entered. Ordering Provider: JACINTO PETER Report Released Date/Time: Jun 23, 2023 04:50 PM Reporting Lab: [facility] [address] [facility] [address] Performing Lab: [facility] [address] [facility] [address] WBC 4.75 10*3/uL 4.50-11.00 RBC 4.81 10*6/uL 4.23-5.66 HGB 13.6 g/dL 12.8-17 HCT 42.4 39.2-50.4 MCV 88.1 fL 82-99 MCHC 32.1 g/dL 30.8-35.1 PLT 150 10*3/uL 140-360 RDW-CV 13.5 12.0-16.0 [place], Abs 1.04 10*3/uL 0.30-1.10 MCH 28.3 pg 26.2-32.6 Neut % 42.5 L 43.7-75.8 Lymph % 33.5 14.0-42.3 [place] % 21.9 H 5.1-13.7 Eos % 1.3 0.4-6.8 Baso % 0.6 0.1-2.0 Neut, Abs 2.02 10*3/uL L 2.20-7.60 Lymph, Abs 1.59 10*3/uL 1.00-3.20 Eos, Abs 0.06 10*3/uL 0.03-0.44 Baso, Abs 0.03 10*3/uL 0.01-0.13 Immature Gran % 0.2 0.0-0.7 Immature Gran, Abs 0.01 10*3/uL 0.00-0.06 Aug 03, 2023 08:04 AM [facility] HEMOGLOBIN A1C PANEL Specimen Type: BLOOD Comment: Values obtained from A1C measurements can vary. For atypical A1C assays, a reported value of 7.0 could actually be between 6.72 and 7.28 if measured by a reference method. A reported value of 9.0 could actually be between 8.73 and 9.27. Ref: http://www.ng sp.org/CAPdat a.asp Ordering Provider: JACINTO PETER Report Released Date/Time: Mar 24, 2023 11:19 AM Reporting Lab: [facility] [address] [facility] [address] Performing Lab: [facility] [address] [facility] [address] HEMOGLOBIN A1C 6.0 H 4.0-5.6 Aug 03, 2023 08:04 AM [facility] LIVER FUNCTION Specimen Type: SERUM No comment entered. Ordering Provider: JACINTO PETER Report Released Date/Time: Mar 24, 2023 11:19 AM Reporting Lab: [facility] [address] [facility] [address] Performing Lab: [address] [address] PROTEIN,TOTAL 5.6 g/dL L 6.0-8.3 ALBUMIN 4.0 g/dL 3.5-5.0 ALKALINE PHOSPHATASE 80 U/L 40-150 AST 23 U/L 5-34 ALT 36 U/L BILIRUBIN, TOTAL 0.8 mg/dL 0.2-1.2 Vital Signs: All taken on the encounter date This section contains inpatient and outpatient Vital Signs collected on the date of the Encounter. Date/Time Temperature Pulse Blood Pressure Respiratory Rate SP02 Pain Height Weight Body Mass Index Source Aug 11, 2023 11:00 AM 167/81 [facility] Aug 11, 2023 10:54 AM 97.9 84 16 95 7 180 30 [facility] Social History: Smoking Status (Most current) [...] place. Date/Time Current Smoking Status Comment Facil ity Jun 05, 2023 11:00 AM VA-TOBACCO FORMER USER [facility] Tobacco Use History This section includes a history of the smoking, or tobacco-related health factors, that were collected on or before the date of the Encounter. The data comes from the [place] facility where the Encounter took place. Date/Time Smoking Status/Tobac co Use Comment Facility Jun 05, 2023 11:00 AM VA-TOBACCO QUIT 15 YRS OR MORE [facility] Jun 06, 2022 01:00 PM VA-TOBACCO FORMER USER [facility] Jun 06, 2022 01:00 PM VA-TOBACCO QUIT 15 YRS OR MORE [facility] Jun 30, 2021 02:37 PM VA-TOBACCO FORMER USER [facility] Jun 30, 2021 02:37 PM VA-TOBACCO QUIT 5 TO < 15 YRS [facility] May 22, 2020 03:30 PM VA-TOBACCO NEVER USED [facility] May 08, 2018 02:03 PM VA-TOBACCO FORMER USER [facility] May 08, 2018 02:03 PM VA-TOBACCO QUIT 15 YRS OR MORE [facility] November 10, 2017 02:33 PM QUIT TOBACCO USE > 7 YEARS AGO [facility] October 21, 2016 01:55 PM QUIT TOBACCO USE > 7 YEARS AGO [facility] Sep 18, 2015 11:24 AM QUIT TOBACCO USE > 7 YEARS AGO stopped 50 years ago [facility] May 19, 2005 08:01 AM HISTORY OF SMOKING [facility] May 31, 2004 01:02 PM HISTORY OF SMOKING [facility] Jun 04, 2003 07:57 AM HISTORY OF SMOKING [facility] Jun 03, 2002 01:11 PM HISTORY OF SMOKING [facility] Jun 03, 2002 01:11 PM QUIT TOBACCO USE > 7 YEARS AGO [facility] Advance Directives: All historical and current Section [...] 2023 ADVANCE DIRECTIVE JENNIFER QUIROS [facility] Encounter Notes: All associated encounter notes This section contains the clinical notes associated to the Encounter. Date/Time Encounter Note(s) Provider Source Aug 11, 2023 11:50 AM PHYSICIAN BROADCAST METEOROLOGIST NOTE: LOCAL TITLE: PA NOTE STANDARD TITLE: PHYSICIAN BROADCAST METEOROLOGIST NOTE DATE OF NOTE: AUG 11, 2023@11:50 ENTRY DATE: AUG 11, 2023@11:50:48 AUTHOR: TOÑO PETER COSIGNER: URGENCY: STATUS: COMPLETED CC/HPI/A/P: 83 year old MALE here in follow-up for; Aortic stenosis, pending AVR on outside insurance. htn, he will d/w PCP Kalina or cardio Buffjimmy. for mgmt. Review of systems: Patient reports no changes from [facility], in meds or any admissions. Active problems - Computerized Problem List is the source for the followin. Cerebrovascular disease s/p L carotid endarterectomy 2. Chronic recurrent major depressive disorder 3. Insulin pump present 4. Hypertension 5. Family history of cancer of colon Brother, rectal cancer. 6. Testicular hypofunction 7. Osteoporosis 8. Major depressive disorder 9. RA - Rheumatoid arthritis 10. History of colonic polyp One TA on 06/10/2020 colonoscopy. 11. Diverticular disease of colon 12. Adjustment disorder 13. Hemorrhoids 07/02/[address] Barrientos. 14. Polymyalgia Rheumatica 15. Microscopic Hematuria longstanding, Followed by community Urologist 16. Rosacea 17. Hypertension (SNOMED CT 59231994) 18. Spinal Stenosis * 19. Hyperlipidemia (SNOMED CT 56122456) 20. Osteoarthritis * 21. Lower Back Pain * 22. Vertigo 23. Diabetes mellitus type 2 (SNOMED CT 59393552) 24. Gastroesophageal Reflux Disorder SERVICE CONNECTED % - 10 VA and Non [place] meds were reconciled with the patient who left with a corrected copy. See medication page for details. Active and Recently Outpatient Medications (excluding Supplies): Active Outpatient Medications Status 1) ATORVASTATIN CALCIUM 80MG TAB TAKE ONE-HALF TABLET BY ACTIVE (S) MOUTH ONCE DAILY 2) CALCIUM 200MG (CA CITRATE-950MG) TAB TAKE FOUR ACTIVE TABLETS BY MOUTH TWICE DAILY 3) CITALOPRAM HYDROBROMIDE 20MG TAB TAKE ONE-HALF TABLET ACTIVE BY MOUTH ONCE DAILY FOR MOOD 4) GABAPENTIN 600MG TAB TAKE ONE TABLET BY MOUTH THREE ACTIVE TIMES A DAY 5) HYDROXYCHLOROQUINE SULFATE 200MG TAB TAKE ONE TABLET ACTIVE BY MOUTH ONCE DAILY 6) INSULIN,ASPART,HUMAN 100 UNIT/ML INJ INJECT 80 UNITS ACTIVE SUBCUTANEOUSLY EVERY DAY DIRECTED FOR USE WITH CONTINUOUS SUBCUTANEOUS INSULIN INFUSION DEVICE 7) KETOCONAZOLE 2% CREAM APPLY A THIN LAYER TOPICALLY ACTIVE TWICE DAILY RASH APPLY TO AFFECTED AREAS ON FACE TWICE DAILY FOR 4 WEEKS, THEN NEEDED 8) KETOCONAZOLE 2% SHAMPOO SHAMPOO SMALL AMOUNT ACTIVE TOPICALLY TWICE A WEEK NEEDED APPLY FOR 8 WEEKS, THEN NEEDED 9) MULTIVIT/OPHTH AREDS2/LUTE/ZEAX CAP/TAB TAKE 1 ACTIVE CAPSULE BY MOUTH TWICE DAILY IN THE MORNING AND EVENING, WITH FOOD 10) PREDNISONE 10MG TAB TAKE ONE TABLET BY MOUTH ONCE ACTIVE DAILY 11) PREDNISONE 1MG TAB TAKE ONE TABLET BY MOUTH ONCE ACTIVE DAILY 12) TAMSULOSIN HCL 0.4MG CAP TAKE ONE CAPSULE BY MOUTH AT ACTIVE BEDTIME FOR ENLARGED PROSTATE 13) TESTOSTERONE CYP 200MG/ML 1ML IN OIL INJECT 0.3ML ACTIVE (60MG) INTRAMUSCULARLY EVERY 7 DAYS FOR LOW TESTOSTERONE 14) TOCILIZUMAB 162MG/0.9ML INJ SYR 0.9ML INJECT 162MG ACTIVE SUBCUTANEOUSLY EVERY 2 WEEKS Inactive Outpatient Medications Status 1) PREDNISONE 5MG TAB TAKE 1 TABLET (5 MG) BY MOUTH ONCE DAILY IN COMBINATION WITH 1MG TABLETS TO TAKE 9 MG DAILY FOR 2 WEEKS, THEN REDUCE BY 1 MG EVERY 2 WEEKS Active Non-VA Medications Status 1) Non-VA ACETAMINOPHEN TAB BY MOUTH ONCE DAILY ACTIVE NEEDED 2) Non-VA CHOLECALCIF 50MCG (D3-2,000UNIT) TAB 50MCG BY ACTIVE MOUTH ONCE DAILY 3) Non-VA CYCLOBENZAPRINE HCL 10MG TAB 10MG BY MOUTH ACTIVE TWICE DAILY 4) Non-VA LOSARTAN 100MG TAB 100MG BY MOUTH DAILY ACTIVE 5) Non-VA OMEPRAZOLE 20MG EC CAP 20MG BY MOUTH EVERY DAY ACTIVE 6) Non-VA PILOCARPINE HCL 5MG TAB 5MG BY MOUTH TWICE ACTIVE DAILY 21 Total Medications 97.9 F [36.6 C] (08/11/2023 10:54) 84 (08/11/2023 10:54) 16 (08/11/2023 10:54) 167/81 (08/11/2023 11:00) 7 (08/11/2023 10:54) 64.5 in [163.8 cm] (04/26/2023 08:20) 180 lb [81.65 kg] (08/11/2023 10:54) BMI: 30.5 Neuro: Alert and oriented times three, grossly nonfocal, nasolabial folds intact. Recent labs reviewed with patient today:yes RHS Screen: RHS Screen Session Format: Face to Face Environmental Check Upon inquiry, the individual reports that the environment is safe to proceed. Informed Consent to Screen and Document The individual consents to proceed with screening. The individual consents to documentation of responses. PRIMARY SCREEN: In the past 12 months, how often did a current or former intimate partner (e.g., boyfriend, girlfriend, , , sexual partner): 1. Scream or curse at you Never 2. Insult or talk down to you Never 3. Threaten you with harm Never 4. Physically hurt you Never 5. Force or pressure you to have sexual contact against your will, or when you were unable to say no Never ?? The HITS tool (items 1-4 above) is [place] copyright protected by Román Moses MD, and the user has full rights to use it throughout the [place] system. PRIMARY SCREEN RESULT: The Primary Screen is NEGATIVE. The individual answered never to all forms of IPV above (i.e., answered never to all 5 items) The individual accepts education and/or resources: Other: EDUCATION: Other: /thomas/ Toño Peter PA-C STAFF PHYSICIAN BROADCAST METEOROLOGIST Signed: 08/11/2023 11:53 TOÑO PETER [facility] Aug 11, 2023 11:01 AM PREVENTIVE MEDICINE NURSING NOTE: LOCAL TITLE: CLINICAL REMINDERS/NURSING STANDARD TITLE: PREVENTIVE MEDICINE NURSING NOTE DATE OF NOTE: AUG 11, 2023@11:01 ENTRY DATE: AUG 11, 2023@11:01:07 AUTHOR: SARAH LUQUE EXP COSIGNER: URGENCY: STATUS: COMPLETED Advance Directive Screen MH AD: Patient has an up-to-date Advance Directive at an outside, non-va facility and was asked to forward a copy to his/her clinician. Homelessness/Food Insecurity Screen: In the past 2 months, have you been living in stable housing that you own, rent, or stay in as part of a household? Yes - Living in stable housing. Are you worried or concerned that in the next 2 months you may NOT have stable housing that you own, rent, or stay in as part of a household? No - Not worried about housing near future The [place] reports the following: Within the past 12 months, you worried whether your food would run out before you got money to buy more. Never true Within the past 12 months, the food you bought just didn't last and you didn't have money to get more. Never true Sexual Orientation: The patient thinks of their sexual orientation as: Straight or Heterosexual PAVE Foot Check: Patient indicates foot exam (including monofilament test for sensation) was performed in the past year in the private sector: Date: July 29, 2023 Result: sees one regular /thomas/ SARAH LUQUE LPN License Practical Nurse Signed: 08/11/2023 11:03 SARAH LUQUE [facility]
--- OUTSIDE RECORDS SUMMARY | 2024-06-14 13:18 | XMS_ITS ---
Author Name [facility] [place] [facility] [place] Address [address] [place] [id number] Care Team Providers Care Merchandise Associate Name Role Phone TOÑO CAI Primary Care [...] Relationship to Policy Wen [place] SUPPLEMEN MASTER PSUED O MEDEX BRONZ E Mar 19, 2004 [id number] [phone] HOLLIE SHEPHERD PATIENT [place] SUPPLEMEN MASTER MEDEX BRONZ E Mar 19, 2004 [id number] HOLLIE SHEPHERD [place] SUPPLEMEN MASTER MEDEX BRONZ E Mar 19, 2004 [id number] [phone] HOLLIE SHEPHERD PATIENT BCBS [facility] MEDICARE SUPPLEMEN MASTER PSUED O MEDEX BRONZ E Mar 19, 2004 [id number] [phone] HOLLIE SHEPHERD PATIENT MEDICARE (WNR) MEDICARE (M) PART B Mar 19, 2004 PART B [id number] [phone] HOLLIE SHEPHERD PATIENT MEDICARE (WNR) MEDICARE (M) PART B Mar 19, 2004 PART B [id number] [phone] HOLLIE SHEPHERD ALD PATIENT MEDICARE (WNR) MEDICARE (M) PART B Mar 19, 2004 PART B [id number] [phone] HOLLIE SHEPHERD ALD PATIENT MEDICARE (WNR) MEDICARE (M) PART A Feb 17, 2003 PART A [id number] [phone] HOLLIE SHEPHERD ALD PATIENT MEDICARE (WNR) MEDICARE (M) PART A Feb 17, 2003 PART A [id number] HOLLIE SHEPHERD ALD PATIENT MEDICARE (WNR) MEDICARE (M) PART A Feb 17, 2003 PART A [id number] HOLLIE SHEPHERD PATIENT MEDICARE (WNR) MEDICARE (M) PART A Feb 17, 2003 PART A [id number] HOLLIE SHEPHERD PATIENT MEDICARE (WNR) MEDICARE (M) PART B Feb 17, 2003 PART B [id number] HOLLIE SHEPHERD PATIENT MEDICARE (WNR) MEDICARE (M) PART A Feb 17, 2003 PART A [id number] HOLLIE SHEPHERD PATIENT MEDICARE (WNR) MEDICARE (M) PART B Feb 17, 2003 PART B [id number] HOLLIE SHEPHERD PATIENT Selected Encounter This section includes the information on record at [place] for the Encounter. Date/Time Encounter Type Encounter Description Reason Pro vider Source Jul 29, 2023 12:00 AM Outpatient Encounter EVENT (HISTORICAL) IHE Encounter Template Text not used by [place] Plan of Treatment: Future Appointments (+ 6 months) and Future Tests (+/- 45 days) The Plan of Treatment section includes future care activities for the patient from all [place] treatmentfacilities. This section includes future appointments and future orders which are active, pending or scheduled. Future Appointments This section includes appointments that were scheduled to occur 6 months from the date of the Encounter, up to a maximum of 20 appointments. The data comes from all [place] treatment facilities. Appointment Date/Time Appointment Type Appointme nt Facility Name Aug 11, 2023 11:00 AM AM[facility]ULATORY [facility]IC[facility] [place] [facility] Oct 09, 2023 10:00 AM [facility]ULAT[facility]ICINE [facility] [place] [facility] Oct 10, 2023 02:30 PM AMBULATORY [facility] MEDICINE [facility] [place] [facility] October 18, 2023 01:00 PM [facility]AT[facility] [place] [facility] November 01, 2023 10:30 AM [facility] November 01, 2023 10:30 AM AMBULATORY - [facility]IATRY [facility] [place] [facility] November 01, 2023 11:15 AM AMBULATORY [facility]IC[facility] [place] [facility] November 01, 2023 01:30 PM AMBULATORY [facility] MEDICINE [facility] [place] [facility] November 02, 2023 11:15 AM AM[facility]ULATORY [facility]ICINE [facility] [place] [facility] November 02, 2023 11:30 AM AMBULATORY [facility]ICINE [facility] [place] [facility] November 06, 2023 02:50 PM AMBULATORY [facility]ICINE [facility] [place] [facility] Nov 22, 2023 10:00 AM AMBULATORY - MEDICINE [facility] [place] [facility] Nov 27, 2023 02:00 PM AMBULATORY - [facility]ICINE [facility] [place] [facility] Lab Results: +/- 30 days of the encounter This section includes the Chemistry and Hematology Lab Results on record with [place] for the patient. Radiology Reports and Pathology Reports are provided separately, in subsequent sections. Lab Results This section contains the Chemistry/Hematology Results that were resulted 30 days before or 30 daysafter the date of the Encounter. Date/Time Source Result Type Result - Unit Interpretation Reference Range Comment Aug 08, 2023 01:07 PM [facility] [place] [facility] MICROALBUMIN CREATININE RATIO PANEL Specimen Type: URINE No comment entered. Ordering Provider: JACINTO CAI Report Released Date/Time: Mar 24, 2023 11:19 AM Reporting Lab: [place] [facility] [place] [address] [address] Performing Lab: [place] [facility] [place] [address] [address] MICROALBUMIN/CR EATININE RATIO 16.2 mg/g 0-29.9 MICROALBUMIN,QU ANTITATIVE 0.5 mg/dL RR UNAVAIL CREATININE URINE 30.95 mg/dL Aug 03, 2023 08:05 AM [facility] IGG SUBCLASSES PANEL (Q) Specimen Type: SERUM Comment: Test Performed by [facility], [employer], [address] [place] [address] Esteban Higuera M.D., Ph.D., Director of Laboratories , CLIA [id number] TEST PERFORMED AT: , Ordering Provider: JACINTO CAI Report Released Date/Time: Jun 23, 2023 04:50 PM Reporting Lab: [facility] [address] [facility] [address] Performing Lab: [facility] [address] [address] IGG 1 (q) 202 mg/dL L 382-929 IGG 2 (q) 137 mg/dL L 241-700 IGG 3 (q) 14 mg/dL L 22-178 IGG 4 (q) 15.4 mg/dL 4.0-86.0 IGG, SERUM (q) 380 mg/dL L 600-1540 Aug 03, 2023 08:05 AM [facility] TESTOSTERONE, TOTAL Specimen Type: SERUM No comment entered. Ordering Provider: ALLIE CUELLO Report Released Date/Time: Apr 23, 2023 05:28 PM Reporting Lab: [facility] [address] [facility] [address] Performing Lab: [facility] [address] [facility] [address] TESTOSTERONE, TOTAL 882.02 ng/dL 220.00-892 .00 Aug 03, 2023 08:05 AM [facility] IGM Specimen Type: SERUM No comment entered. Ordering Provider: JACINTO CAI Report Released Date/Time: Jun 23, 2023 04:50 PM Reporting Lab: [facility] [address] [facility] [address] Performing Lab: [place] [facility] [place] [facility] [address] [facility] [address] IGM 31 mg/dL L 40-230 Aug 03, 2023 08:05 AM [facility] [place] [facility] IGG Specimen Type: SERUM No comment entered. Ordering Provider: JACINTO CAI Report Released Date/Time: Jun 23, 2023 04:50 PM Reporting Lab: [place] [facility] [place] [facility] [address] [facility] [address] Performing Lab: [facility] [place] [facility] [address] [facility] [address] IGG 377 mg/dL L 700-1600 Aug 03, 2023 08:05 AM [facility] IMMUNOGLOBLIN (IgG,IgM,IgA) Specimen Type: SERUM No comment entered. Ordering Provider: JACINTO CAI Report Released Date/Time: Jun 23, 2023 04:50 PM Reporting Lab: [facility] [place] [facility] [address] [facility] [address] Performing Lab: [facility] [place] [facility] [address] [facility] [address] IGG 380 mg/dL L 700-1600 IGA 27 mg/dL L 70-400 IGM 30 mg/dL L 40-230 Aug 03, 2023 08:05 AM [facility] LIPID PANEL FASTING Specimen Type: SERUM No comment entered. Ordering Provider: ALLIE CUELLO Report Released Date/Time: Apr 23, 2023 05:29 PM Reporting Lab: [place] [facility] [place] [facility] [address] [facility] [address] Performing Lab: [facility] [place] [facility] [address] [facility] [address] CHOLESTEROL 107 mg/dL TRIGLYCERIDE 70 mg/dL 0-150 LDL calculated 50 mg/dL 0-129 CHOL/HDL 2.5 HDL CHOLESTEROL 43 mg/dL 40-60 Aug 03, 2023 08:05 AM [facility] BASIC METABOLIC PANEL (non-fasting) Specimen Type: SERUM No comment entered. Ordering Provider: ALLIE CUELLO Report Released Date/Time: Apr 23, 2023 05:27 PM Reporting Lab: [address] [address] Performing Lab: [address] [address] UREA NITROGEN 17 mg/dL 7-25 GLUCOSE 116 mg/dL H 65-100 SODIUM 144 mmol/L 135-145 POTASSIUM 4.1 mmol/L 3.5-5.0 CHLORIDE 104 mmol/L 100-110 CO2 28 meq/L 20-30 CREATININE, Serum 0.89 mg/dL 0.50-1.40 eGFR(CKD-EPI 2020) 83 mL/min >60 Aug 03, 2023 08:05 AM [facility] CBC Specimen Type: BLOOD No comment entered. Ordering Provider: ALLIE CUELLO Report Released Date/Time: Apr 23, 2023 05:28 PM Reporting Lab: [address] [address] Performing Lab: [address] [address] WBC 4.75 10*3/uL 4.50-11.00 RBC 4.81 10*6/uL 4.23-5.66 HGB 13.6 g/dL 12.8-17 HCT 42.4 39.2-50.4 MCV 88.1 fL 82-99 MCHC 32.1 g/dL 30.8-35.1 PLT 150 10*3/uL 140-360 RDW-CV 13.5 12.0-16.0 MCH 28.3 pg 26.2-32.6 Aug 03, 2023 08:05 AM [facility] CBC AND DIFF (AUTO) Specimen Type: BLOOD No comment entered. Ordering Provider: JACINTO CAI Report Released Date/Time: Jun 23, 2023 04:50 PM Reporting Lab: [address] [address] Performing Lab: [address] [place] [address] WBC 4.75 10*3/uL 4.50-11.00 RBC 4.81 10*6/uL 4.23-5.66 HGB 13.6 g/dL 12.8-17 HCT 42.4 39.2-50.4 MCV 88.1 fL 82-99 MCHC 32.1 g/dL 30.8-35.1 PLT 150 10*3/uL 140-360 RDW-CV 13.5 12.0-16.0 Taliaferro, Abs 1.04 10*3/uL 0.30-1.10 MCH 28.3 pg 26.2-32.6 Neut % 42.5 L 43.7-75.8 Lymph % 33.5 14.0-42.3 Taliaferro % 21.9 H 5.1-13.7 Eos % 1.3 0.4-6.8 Baso % 0.6 0.1-2.0 Neut, Abs 2.02 10*3/uL L 2.20-7.60 Lymph, Abs 1.59 10*3/uL 1.00-3.20 Eos, Abs 0.06 10*3/uL 0.03-0.44 Baso, Abs 0.03 10*3/uL 0.01-0.13 Immature Gran % 0.2 0.0-0.7 Immature Gran, Abs 0.01 10*3/uL 0.00-0.06 Aug 03, 2023 08:04 AM [facility] HEMOGLOBIN A1C PANEL Specimen Type: BLOOD Comment: [...] Mar 24, 2023 11:19 AM Reporting Lab: [address] [address] Performing Lab: [address] [address] HEMOGLOBIN A1C 6.0 H 4.0-5.6 Aug 03, 2023 08:04 AM [facility] LIVER FUNCTION Specimen Type: SERUM No comment entered. Ordering Provider: JACINTO CAI Report Released Date/Time: Mar 24, 2023 11:19 AM Reporting Lab: [facility] [address] [facility] [address] Performing Lab: [facility] [address] [facility] [address] PROTEIN,TOTAL 5.6 g/dL L 6.0-8.3 ALBUMIN 4.0 g/dL 3.5-5.0 ALKALINE PHOSPHATASE 80 U/L 40-150 AST 23 U/L 5-34 ALT 36 U/L BILIRUBIN, TOTAL 0.8 mg/dL 0.2-1.2 Social History: Smoking Status (Most current) and Tobacco Use (All prior to encounter date) This section includes the most current, and the historical, smoking and tobacco- related health factors from the [place] facility where the Encounter took place. Current Smoking Status This section includes the most current smoking, or tobacco-related health factor, from the [place] facility where the Encounter took place. Date/Time Current Smoking Status Comment [facility] Jun 05, 2023 11:00 AM VA-TOBACCO [facility] Tobacco Use History This section includes a history of the smoking, or tobacco-related health factors, that were collected on or before the date of the Encounter. The data comes from the [place] facility where the Encounter took place. Date/Time Smoking Status/Tobac co Use Comment Facility Jun 05, 2023 11:00 AM VA-TOBACCO QUIT 15 YRS OR MORE [place] [facility] Jun 06, 2022 01:00 PM VA-TOBACCO FORMER USER [place] [facility] [place] [facility] Jun 06, 2022 01:00 PM VA-TOBACCO QUIT 15 YRS OR MORE [place] [facility] [place] [facility] Jun 30, 2021 02:37 PM VA-TOBACCO FORMER USER [place] [facility] [place] [facility] Jun 30, 2021 02:37 PM VA-TOBACCO QUIT 5 TO < 15 YRS [facility] [place] [facility] May 22, 2020 03:30 PM VA-TOBACCO [facility] USED [facility] [place] [facility] May 08, 2018 02:03 PM VA-TOBACCO FORMER USER [place] [facility] [place] [facility] May 08, 2018 02:03 PM VA-TOBACCO QUIT 15 YRS OR MORE [place] [facility] [place] [facility] November 10, 2017 02:33 PM QUIT TOBACCO USE > 7 YEARS AGO [place] [facility] [place] [facility] October 21, 2016 01:55 PM QUIT TOBACCO USE > 7 YEARS AGO [place] [facility] [place] [facility] Sep 18, 2015 11:24 AM QUIT TOBACCO USE > 7 YEARS AGO stopped 50 years ago [facility] May 19, 2005 08:01 AM HIST[facility] OF [facility]MOKING [facility] May 31, 2004 01:02 PM [facility]KING [facility] Jun 04, 2003 07:57 AM [facility]MOKING [facility] [place] [facility] Jun 03, 2002 01:11 PM H[facility]MOKING [facility] Jun 03, 2002 01:11 PM QUIT TOBACCO USE > 7 YEARS AGO [facility] Advance Directives: All historical and current Section Date Range: From patient's date of to the date document was created. This section includes ALL of a patient's completed or amended [place] Advance and Rescinded Directives. The entries below indicate that a directive exists for the patient, but an actual copy is not included with this document. The data comes from all [place] facilities. Date Advance Directives Provider Source Jun 02, 2023 ADVANCE DIRECTIVE JENNIFER QUIROS [facility]
--- OUTSIDE RECORDS SUMMARY | 2024-06-14 13:18 | XMS_ITS ---
Author Name [facility] [place] Organization [place] Address [address] [place] [address] Care Team Providers Care District Supervisor Name Role Phone TOÑO PETER Primary Care [...] Relationship to Policy Wen [place] SUPPLEMEN MASTER PSUED O MEDEX [facility] E Mar 19, 2004 [id number] HOLLIE SHEPHERD [place]IENT [place] SUPPLEMEN MASTER MEDEX [facility] E Mar 19, 2004 [id number] [phone] HOLLIE [place]PHER[place] SUPPLEMEN MASTER MEDEX [place] E Mar 19, 2004 [id number] [phone] HOLLIE SHEPHERD PATIENT BCBS [facility] MEDICARE SUPPLEMEN MASTER PSUED O MEDEX [place] E Mar 19, 2004 [id number] HOLLIE SHEPHERD PATIENT MEDICARE (WNR) MEDICARE (M) PART B Mar 19, 2004 PART B [id number] HOLLIE SHEPHERD PATIENT MEDICARE (WNR) MEDICARE (M) PART B Mar 19, 2004 PART B [id number] HOLLIE SHEPHERD PATIENT MEDICARE (WNR) MEDICARE (M) PART B Mar 19, 2004 PART B [id number] CORAHOLLIE SILVA ALD PATIENT MEDICARE (WNR) MEDICARE (M) PART A Feb 17, 2003 PART A [id number] CORAHOLLIE SILVA ALD PATIENT MEDICARE (WNR) MEDICARE (M) PART A Feb 17, 2003 PART A [id number] HOLLIE SHEPHERD PATIENT MEDICARE (WNR) MEDICARE (M) PART A Feb 17, 2003 PART A [id number] HOLLIE SHEPHERD PATIENT MEDICARE (WNR) MEDICARE (M) PART A Feb 17, 2003 PART A [id number] [phone] CORAHOLLIE SILVA PATIENT MEDICARE (WNR) MEDICARE (M) PART B Feb 17, 2003 PART B [id number] [id number] [phone] HOLLIE SHEPHERD PATIENT MEDICARE (WNR) MEDICARE (M) PART A Feb 17, 2003 PART A [id number] [id number] [phone] HOLLIE SHEPHERD PATIENT MEDICARE (WNR) MEDICARE (M) PART B Feb 17, 2003 PART B [id number] HOLLIE SHEPHERD PATIENT Selected Encounter This section includes the information on record at [place] for the Encounter. Date/Time Encounter Type Encounter Description Reason Provider Source Oct 09, 2023 10:00 AM OFFICE O/P EST LOW 20 MIN PRIMARY CARE/MEDICINE ICD-10-CM I35.9 Nonrheumatic aortic valve disorder, unspecified JACINTO PETER [facility] Encounter Template Text not used by [place] Assessments - Encounter Diagnoses This section includes the primary and secondary diagnoses documented for the Encounter. Date/Time Primary/Secondary Diagnosis Diagnosis Name Provider Source October 31, 2023 04:35 PM PRIMARY Nonrheumatic aortic valve disorder, unspecified JACINTO PETER [place] [facility] Plan of Treatment: Future Appointments (+ 6 months) and Future Tests (+/- 45 days) The Plan of Treatment section includes future care activities for the [facility] [place] [facility] This section includes future appointments and future orders which are active, pending or scheduled. Future Appointments This section includes appointments that were scheduled to occur 6 months from the date of the Encounter, up to a maximum of 20 appointments. The data comes from all [place] treatment facilities. Appointment Date/Time Appointment Type Appointme nt Facility Name Oct 10, 2023 02:30 PM AM[facility]ULATORY [facility] [place] [facility] October 18, 2023 01:00 PM AMBULATORY - MEDICINE [facility] [place] [facility] November 01, 2023 10:30 AM AM[place] [facility] November 01, 2023 10:30 AM AMBULATORY - PS[place]CHIATRY [facility] [place] [facility] November 01, 2023 11:15 AM AMBULATORY - MEDICINE [facility] [place] [facility] November 01, 2023 01:30 PM AMBULATORY - MEDICINE [facility] [place] [facility] November 02, 2023 11:15 AM AMBULATORY - MEDICINE [facility] [place] [facility] November 02, 2023 11:30 AM AMBULATORY - MEDICINE [facility] [place] [facility] November 06, 2023 02:50 PM AMBULATORY - MEDICINE [facility] [place] [facility] Nov 22, 2023 10:00 AM AMBULATORY - MEDICINE [facility] [place] [facility] Nov 27, 2023 02:00 PM AMBULATORY - MEDICINE [facility] [place] [facility] Feb 12, 2024 10:00 AM AMBULATORY - MEDICINE [facility] [place] [facility] Feb 28, 2024 01:00 PM AMBULATORY [place] [facility] Feb 28, 2024 01:00 PM AMBULATORY - PS[facility]CHIATRY [facility] [place] [facility] Mar 25, 2024 10:00 AM AMBULATORY - MEDICINE [facility] [place] [facility] Mar 25, 2024 10:30 AM AMBULATORY - MEDICINE [facility] [place] [facility] Apr 02, 2024 02:00 PM AMBULATORY - MEDICINE [facility] [place] [facility] Apr 04, 2024 02:00 PM [facility] Apr 08, 2024 01:00 PM [facility] [place] [facility] Active, Pending, and Scheduled Orders This section includes a listing of several types of active, pending, and scheduled orders, including clinic medications orders, diagnostic test orders, procedure orders and consult orders; where the start date of the order is 45 days before the date of the Encounter or 45 days after the date of theEncounter. The data comes from all [place] treatment facilities. Test Date/Time Test Type Test Details Facility Name Oct 10, 2023 12:00 AM Laboratory - Chemi stry Order SURGICAL PATH ORDER SURG PATH SPEC. UNKNOWN SP [facility] Lab Results: +/- 30 days of the encounter This section includes the Chemistry and Hematology Lab Results on record with [place] for the patient. Radiology Reports and Pathology Reports are provided separately, in subsequent sections. Lab Results This section contains the Chemistry/Hematology Results that were resulted 30 days before or 30 daysafter the date of the Encounter. Date/Time Source Result Type Result - Unit Interpretation Reference Range Comment Oct 11, 2023 01:27 PM [facility] MICROALBUMIN CREATININE RATIO PANEL Specimen Type: URINE No comment entered. Ordering Provider: ALLIE CUELLO Report Released Date/Time: Jul 26, 2023 10:12 AM Reporting Lab: [facility] [address] [facility] [address] Performing Lab: [facility] [address] [facility] [address] MICROALBUMIN/C REATININE RATIO 7.1 mg/g 0-29.9 MICROALBUMIN,Q UANTITATIVE 0.8 mg/dL RR UNAVAIL CREATININE URINE 113.29 mg/dL Oct 10, 2023 03:42 PM [facility] LIVER FUNCTION Specimen Type: SERUM Comment: *BASIC METABOLIC PANEL (fasting) Not Performed: Oct 10, 2023@15:51 b *LEGAL ARCHIVIST Reason: dup *LIPID PANEL FASTING Not Performed: Oct 10, 2023@15:51 by [id number] *LEGAL ARCHIVIST Reason: dup Ordering Provider: VANWAGNER,WILL MAY F Report Released Date/Time: Jun 05, 2023 11:22 AM Reporting Lab: [facility] [address] [facility] [address] Performing Lab: [address] [address] PROTEIN,TOTAL 6.0 g/dL 6.0-8.3 ALBUMIN 4.2 g/dL 3.5-5.0 ALKALINE PHOSPHATASE 89 U/L 40-150 AST 29 U/L 5-34 ALT 29 U/L BILIRUBIN, TOTAL 1.3 mg/dL H 0.2-1.2 BILIRUBIN, DIRECT 0.5 mg/dL 0-0.5 Oct 10, 2023 03:41 PM [facility] TESTOSTERONE, TOTAL (WHV) Specimen Type: SERUM No comment entered. Ordering Provider: ALLIE CUELLO Report Released Date/Time: Jul 26, 2023 10:12 AM Reporting Lab: [address] [address] Performing Lab: [address] [address] TESTOSTERONE, TOTAL (WHV) 755.20 ng/dL 220.00-892 .00 Oct 10, 2023 03:41 PM [facility] PSA Specimen Type: SERUM No comment entered. Ordering Provider: ALLIE CUELLO Report Released Date/Time: Jul 26, 2023 10:12 AM Reporting Lab: [address] [address] Performing Lab: [address] [address] PSA 4.74 ng/mL H 0.00-4.00 Oct 10, 2023 03:41 PM [facility] CBC Specimen Type: BLOOD No comment entered. Ordering Provider: ALLIE CUELLO Report Released Date/Time: Jul 26, 2023 10:12 AM Reporting Lab: [address] [address] Performing Lab: [address] [place] [address] WBC 5.42 10*3/uL 4.50-11.00 RBC 4.87 10*6/uL 4.23-5.66 HGB 12.5 g/dL L 12.8-17 HCT 39.4 39.2-50.4 MCV 80.9 fL L 82-99 MCHC 31.7 g/dL 30.8-35.1 PLT 123 10*3/uL L 140-360 RDW-CV 14.7 12.0-16.0 MCH 25.7 pg L 26.2-32.6 Oct 10, 2023 03:41 PM [facility] HEMOGLOBIN A1C PANEL Specimen Type: BLOOD Comment: Values obtained from A1C measurements can vary. For atypical A1C assays, a reported value of 7.0 could actually be between 6.72 and 7.28 if measured by a reference method. A reported value of 9.0 could actually be between 8.73 and 9.27. Ref: http://www.myParcel[employer] p.org/CAPdata. asp Ordering Provider: ALLIE CUELLO Report Released Date/Time: Jul 26, 2023 10:12 AM Reporting Lab: [address] [address] Performing Lab: [address] [address] HEMOGLOBIN A1C 6.7 H 4.0-5.6 Oct 10, 2023 03:41 PM [facility] LIPID PANEL FASTING Specimen Type: SERUM No comment entered. Ordering Provider: ALLIE CUELLO Report Released Date/Time: Jul 26, 2023 10:12 AM Reporting Lab: [address] [address] Performing Lab: [address] [address] CHOLESTEROL 96 mg/dL TRIGLYCERIDE 101 mg/dL 0-150 LDL calculated 44 mg/dL 0-129 CHOL/HDL 3.0 HDL CHOLESTEROL 32 mg/dL L 40-60 Oct 10, 2023 03:41 PM [facility] VITAMIN D (25-OH) Specimen Type: SERUM No comment entered. Ordering Provider: ALLIE CUELLO Report Released Date/Time: Oct 10, 2023 07:35 AM Reporting Lab: [address] [address] Performing Lab: [address] [address] VITAMIN D (25-OH) 41 ng/mL 20-50 Oct 10, 2023 03:41 PM [facility] BASIC METABOLIC PANEL (fasting) Specimen Type: SERUM No comment entered. Ordering Provider: ALLIE CUELLO Report Released Date/Time: Jul 26, 2023 10:12 AM Reporting Lab: [address] [address] Performing Lab: [address] [address] UREA NITROGEN 22 mg/dL 7-25 GLUCOSE 172 mg/dL H 65-100 SODIUM 137 mmol/L 135-145 POTASSIUM 4.0 mmol/L 3.5-5.0 CHLORIDE 101 mmol/L 100-110 CO2 26 meq/L 20-30 CREATININE, Serum 1.26 mg/dL 0.50-1.40 eGFR(CKD-EPI 2020) 56 mL/min L >60 Oct 10, 2023 03:41 PM [facility] CALCIUM Specimen Type: SERUM No comment entered. Ordering Provider: ALLIE CUELLO Report Released Date/Time: Oct 10, 2023 07:35 AM Reporting Lab: [address] [address] Performing Lab: [address] [address] CALCIUM 9.1 mg/dL 8.5-10.2 Vital Signs: All taken on the encounter date This section contains inpatient and outpatient Vital Signs collected on the date of the Encounter. Date/Time Temperature Pulse Blood Pressure Respiratory Rate SP02 Pain Height Weight Body Mass Index Source Oct 09, 2023 10:02 AM 97.8 87 118/74 18 97 4 184 31 [facility] Social History: Smoking Status (Most current) and Tobacco Use (All prior to encounter date) This section includes the most current, and the historical, smoking and tobacco- related health factors from the [place] facility where the Encounter took place. Current Smoking Status This section includes the most current smoking, or tobacco-related health factor, from the [place] facility where the Encounter took place. Date/Time Current Smoking Status Comment [facility] Jun 05, 2023 11:00 AM [facility] Tobacco Use History This section includes a history of the smoking, or tobacco-related health factors, that were collected on or before the date of the Encounter. The data comes from the [place] facility where the Encounter took place. Date/Time Smoking Status/Tobac co Use Comment Facility Jun 05, 2023 11:00 AM VA-TOBACCO QUIT 15 YRS OR MORE [place] [facility] [place] [facility] Jun 06, 2022 01:00 PM VA-TOBACCO FORMER USER [place] [facility] [place] [facility] Jun 06, 2022 01:00 PM VA-TOBACCO QUIT 15 YRS OR MORE [place] [facility] [place] [facility] Jun 30, 2021 02:37 PM VA-TOBACCO FORMER USER [place] [facility] [place] [facility] Jun 30, 2021 02:37 PM VA-TOBACCO QUIT 5 TO < 15 YRS [place] [facility] [place] [facility] May 22, 2020 03:30 PM VA-TOBACCO NEVER USED [place] [facility] [place] [facility] May 08, 2018 02:03 PM VA-TOBACCO FORMER USER [place] [facility] [place] [facility] May 08, 2018 02:03 PM VA-TOBACCO QUIT 15 YRS OR MORE [place] [facility] [place] [facility] November 10, 2017 02:33 PM QUIT TOBACCO USE > 7 YEARS AGO [facility] [place] [facility] October 21, 2016 01:55 PM QUIT TOBACCO USE > 7 YEARS AGO [facility] [place] [facility] Sep 18, 2015 11:24 AM QUIT TOBACCO USE > 7 YEARS AGO stopped 50 years ago [facility] [place] [facility] May 19, 2005 08:01 AM HISTORY OF SMOKING [place] [facility] [place] [facility] May 31, 2004 01:02 PM HISTORY OF SMOKING [facility] [place] [facility] Jun 04, 2003 07:57 AM HISTORY OF SMOKING [facility] Jun 03, 2002 01:11 PM HISTORY OF SMOKING [facility] Jun 03, 2002 01:11 PM QUIT TOBACCO USE > 7 YEARS AGO [facility] Advance Directives: All historical and current Section Date Range: From patient's date of to the date document was created. This section includes ALL of a patient's completed or amended [place] Advance and Rescinded Directives. The entries below indicate that a directive exists for the patient, but an actual copy is not included with this document. The data comes from all [place] facilities. Date Advance Directives Provider Source Jun 02, 2023 ADVANCE DIRECTIVE JENNIFER QUIROS [facility] Pathology Reports: +/- 30 days of the encounter Pathology Reports For cases when an order for pathology services may have been completed prior to the date of the Encounter, the report list includes the Pathology Reports that were completed up to 30 days before dateof the Encounter. For cases when an order for pathology services may have been completed after the date of the Encounter, the report list also includes the Pathology Reports that were completed up to30 days after date of the Encounter. The data comes from all [place] treatment facilities. Date/Time Pathology Report Provider Source Oct 12, 2023 10:54 AM LR SURGICAL PATHOLOGY REPORT: LOCAL TITLE: LR SURGICAL PATHOLOGY REPORT STANDARD TITLE: PATHOLOGY DIAGNOSTIC STUDY REPORT DATE OF NOTE: OCT 12, 2023@10:54:23 ENTRY DATE: OCT 12, 2023@10:54:23 AUTHOR: LESTER ANDERSON MD EXP COSIGNER: URGENCY: STATUS: COMPLETED $APHDR Reporting Lab: [facility] [CLIA# [id number]] [address] [place] [phone] - - - - - - - - - - - - - - - - - - - - - - - - - - - - - - - - - - - - - - - - MEDICAL RECORD SURGICAL PATHOLOGY - - - - - - - - - - - - - - - - - - - - - - - - - - - - - - - - - - - - - - - - PATHOLOGY REPORT [facility] - - - - - - - - - - - - - - - - - - - - - - - - - - - - - - - - - - - - - - - - $TEXT Submitted by: VEGA PENA Date obtained: Oct 10, 2023 13:00 - - - - - - - - - - - - - - - - - - - - - - - - - - - - - - - - - - - - - - - - Specimen (Received Oct 10, 2023 15:08): SKIN OF CENTRAL UPPER FOREHEAD SKIN OF R TEMPORAL SCALP - - - - - - - - - - - - - - - - - - - - - - - - - - - - - - - - - - - - - - - - BRIEF CLINICAL HISTORY: [id number] SPECIMEN A: CENTRAL UPPER FOREHEAD 1CM ERYTHERMATOUS PAPULE SPECIMEN B: R TEMPORAL SCALP 3CM HYPERPIGMENTED PLAQUE - - - - - - - - - - - - - - - - - - - - - - - - - - - - - - - - - - - - - - - - PREOPERATIVE DIAGNOSIS: 174 SPECIMEN A: R/O SCC SPECIMEN B: SK VS MM - - - - - - - - - - - - - - - - - - - - - - - - - - - - - - - - - - - - - - - - OPERATIVE FINDINGS: - - - - - - - - - - - - - - - - - - - - - - - - - - - - - - - - - - - - - - - - POSTOPERATIVE DIAGNOSIS: Surgeon/physician: VEGA PENA =-=-=-=-=-=-=-=-=-=-=-=-=-=- =-=-=-=-=-=-=-=-=-=-=-=-=-=- =-=-=-=-=-=-=-=-=-=-=-= - - - - - - - - - - - - - - - - - - - - - - - - - - - - - - - - - - - - - - - - PATHOLOGY REPORT Accession No[facility] 24 174 - - - - - - - - - - - - - - - - - - - - - - - - - - - - - - - - - - - - - - - - Gross description: [facility] 24 [id number];A;1;Nisa SHEPHERD This is a [facility] case number SPATH [id number]. Received in formalin is a 2 part case labeled with the patient's name and social security number. A. Forehead is a 0.5 x 0.4 x 0.1 cm skin shave. The surface displays a 0.3 x 0.2 x 0.1 cm perez papule abutting the margin, inked orange. The specimen is serially sectioned and entirely submitted as follows: A1: Tips A2: Body B. Scalp is a 1.0 x 0.8 x 0.1 cm skin shave. The surface is mottled brown and granular. The margin is inked black, the specimen is serially sectioned and entirely submitted as follows: B1: Tips B2: Body JK 10/11/2023 A. Skin, central upper forehead: Hypertrophic actinic keratosis. Note: The base of the lesion is inadequately represented [multiple tissue levels examined]. Given this, squamous cell carcinoma cannot be entirely excluded. Clinicopathologic correlation is recommended. B. Skin, right temporal scalp: Pigmented seborrheic keratosis, extending to the lateral and deep tissue margins. CPT codes [id number] /es/ LESTER ANDERSON MD Board Certified Dermatopathologist Signed Oct 12, 2023@10:54 Performing Laboratory: Surgical Pathology Report Performed By: [facility] [CLIA# [id number]] [address] [place] [phone] $FTR - - - - - - - - - - - - - - - - - - - - - - - - - - - - - - - - - - - - - - - - (End of report) LESTER ANDERSON MD, MD mm Date Oct 12, 2023 - - - - - - - - - - - - - - - - - - - - - - - - - - - - - - - - - - - - - - - - BEBO SHEPHERD STANDARD FORM 515 ID:[id number] SEX:M :1940 AGE: 83 LOC:CWM/NO/CVT/DERMATOLOGY/N P PCP: RUBY Long /thomas/ LESTER ANDERSON MD Board Certified Dermatopathologist Signed: 10/12/2023 10:54 LE[facility] ANDERSON MD [facility] Encounter Notes: All associated encounter notes This section contains the clinical notes associated to the Encounter. Date/Time Encounter Note(s) Provider Source Oct 09, 2023 10:25 AM PHYSICIAN RINKMAN NOTE: LOCAL TITLE: RUBY NOTE STANDARD TITLE: PHYSICIAN RINKMAN NOTE DATE OF NOTE: OCT 09, 2023@10:25 ENTRY DATE: OCT 09, 2023@10:25:17 AUTHOR: TOÑO PETER EXP COSIGNER: URGENCY: STATUS: COMPLETED RUBY NOTE Has ADDENDA CC/HPI/A/P: 83 year old MALE here in follow-up for; He reports some blood on his dressing 2 days ago from right femoral access for TVAR performed at [facility] 6 days ago. 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 He denies fevers, and is voiding and stooling normally. He reports seeing a documentary about 'cobalt in the blood' nad thinks it is from his right wrist hardware (remote ORIF) I confirm that he means cobalt, a poisonous metal used in manufactuing nuclear weapons. He confirms. I do not think this is a component of hardware that we place in human bodies, but offer a consult to ortho to cosider removal 'why, it doesn't hurt? I ask him to send me documentation. Review of systems: Patient reports no changes [...] Urologist 16. Rosacea 17. Hypertension (SNOMED CT 83353411) 18. Spinal Stenosis * 19. Hyperlipidemia (SNOMED CT 52406919) 20. Osteoarthritis * 21. Lower Back Pain * 22. Vertigo 23. Diabetes mellitus type 2 (SNOMED CT 78191573) 24. Gastroesophageal Reflux Disorder SERVICE CONNECTED % - 10 VA and Non VA meds were reconciled with the patient who left with a corrected copy. See medication page for details. Active and Recently Outpatient Medications (excluding Supplies): Active Outpatient Medications Status 1) ATORVASTATIN CALCIUM 80MG TAB TAKE ONE-HALF TABLET BY ACTIVE MOUTH ONCE DAILY 2) CALCIUM 200MG (CA CITRATE-950MG) TAB TAKE FOUR ACTIVE TABLETS BY MOUTH TWICE DAILY 3) GABAPENTIN 600MG TAB TAKE ONE TABLET BY MOUTH THREE ACTIVE TIMES A DAY 4) HYDROXYCHLOROQUINE SULFATE 200MG TAB TAKE ONE TABLET ACTIVE BY MOUTH ONCE DAILY 5) INSULIN,ASPART,HUMAN 100 UNIT/ML INJ INJECT 80 UNITS ACTIVE SUBCUTANEOUSLY EVERY DAY DIRECTED FOR USE WITH CONTINUOUS SUBCUTANEOUS INSULIN INFUSION DEVICE 6) KETOCONAZOLE 2% CREAM APPLY A THIN LAYER TOPICALLY ACTIVE TWICE DAILY RASH APPLY TO AFFECTED AREAS ON FACE TWICE DAILY FOR 4 WEEKS, THEN NEEDED 7) KETOCONAZOLE 2% SHAMPOO SHAMPOO SMALL AMOUNT ACTIVE TOPICALLY TWICE A WEEK NEEDED APPLY FOR 8 WEEKS, THEN NEEDED 8) MULTIVIT/OPHTH AREDS2/LUTE/ZEAX CAP/TAB TAKE 1 ACTIVE CAPSULE BY MOUTH TWICE DAILY IN THE MORNING AND EVENING, WITH FOOD 9) PREDNISONE 10MG TAB TAKE ONE TABLET BY MOUTH ONCE ACTIVE DAILY 10) PREDNISONE 1MG TAB TAKE ONE TABLET BY MOUTH ONCE ACTIVE DAILY 11) TAMSULOSIN HCL 0.4MG CAP TAKE ONE CAPSULE BY MOUTH AT ACTIVE BEDTIME FOR ENLARGED PROSTATE 12) TESTOSTERONE CYP 200MG/ML 1ML IN OIL INJECT 0.3ML ACTIVE (60MG) INTRAMUSCULARLY EVERY 7 DAYS FOR LOW TESTOSTERONE 13) TOCILIZUMAB 162MG/0.9ML INJ SYR 0.9ML INJECT 162MG ACTIVE SUBCUTANEOUSLY EVERY 2 WEEKS Inactive Outpatient Medications Status 1) CITALOPRAM HYDROBROMIDE 20MG TAB TAKE ONE-HALF TABLET BY MOUTH ONCE DAILY FOR MOOD Active Non-VA Medications Status 1) Non-VA ACETAMINOPHEN [...] TAB 5MG BY MOUTH TWICE ACTIVE DAILY 20 Total Medications 97.8 F [36.6 C] (10/09/2023 10:02) 87 (10/09/2023 10:02) 18 (10/09/2023 10:02) 118/74 (10/09/2023 10:02) 4 (10/09/2023 10:02) 64.5 in [163.8 cm] (04/26/2023 08:20) 184 lb [83.46 kg] (10/09/2023 10:02) BMI: 31.2 Neuro: Alert and oriented times three, grossly nonfocal, nasolabial folds intact. confluent, mature looking ecchymosis noted in right groin and upper right thigh, extending to suprapubic area. His dressing applied 2 days ago is clean, with NO blood evident. a/P S/p TAVR last week, no active bleeding, reassured, precautions discussed. High Risk for HYPOglycemia: ONCE - Low Blood Sugar reported ONCE. In the past few months, how often did Elton/Caregiver report having blood sugar low enough to FEAR PASSING-OUT? NONE - No fear of fainting. Hypoglycemic screen clinical decision: No change in glycemic management at this time. Comment: I sometimes get a bit low, snack' He asks about hydroxychloriquine, 90 day supply (last refill) done in April. I find his 02/02/2023 rheumatology note in [place], in which the DR stated 'continue'.... Please check with [facility], have them fax an rx to pharmacy if they want him on this and obtain their more recent notes. /thomas/ Toño Peter PA-C STAFF PHYSICIAN RINKMAN Signed: 10/09/2023 10:42 Receipt Acknowledged By: 10/09/2023 15:53 /thomas/ VIJAYA KENDALL RN REGISTERED NURSE 10/09/2023 ADDENDUM STATUS: COMPLETED requested /thomas/ VIJAYA KENDALL RN REGISTERED NURSE Signed: 10/09/2023 15:53 TOÑO PETER [place] [facility]
--- OUTSIDE RECORDS SUMMARY | 2024-06-14 13:18 | XMS_ITS ---
Author Name [facility] [place] [facility] [place] Address [address] [place] [id number] Care Team Providers Care Clerical Administrator Name Role Phone TOÑO CAI Primary Care [...] Relationship to Policy Wen [place] MED[place] SUPPLEMEN MASTER PSUED O MEDEX BRONZ E Mar 19, 2004 [id number] [phone] HOLLIE SHEPHERD PATIENT [place] SUPPLEMEN MASTER MEDEX BRONZ E Mar 19, 2004 [id number] [phone] HOLLIE SHEPHERD [place] SUPPLEMEN MASTER MEDEX BRONZ E Mar 19, 2004 [id number] [phone] HOLLIE SHEPHERD PATIENT BCBS [facility] MEDICARE SUPPLEMEN MASTER PSUED O MEDEX BRONZ E Mar 19, 2004 [id number] [phone] HOLLIE SHEPHERD PATIENT MEDICARE (WNR) MEDICARE (M) PART B Mar 19, 2004 PART B [id number] CORA,HOLLIE ALD PATIENT MEDICARE (WNR) MEDICARE (M) PART B Mar 19, 2004 PART B [id number] HOLLIE SHEPHERD ALD PATIENT MEDICARE (WNR) MEDICARE (M) PART B Mar 19, 2004 PART B [id number] CORAHOLLIE SILVA ALD PATIENT MEDICARE (WNR) MEDICARE (M) PART A Feb 17, 2003 PART A [id number] [phone] HOLLIE SHEPHERD ALD PATIENT MEDICARE (WNR) MEDICARE (M) PART A Feb 17, 2003 PART A [id number] HOLLIE SHEPHERD ALD PATIENT MEDICARE (WNR) MEDICARE (M) PART A Feb 17, 2003 PART A [id number] HOLLIE SHEPHERD ALD PATIENT MEDICARE (WNR) MEDICARE (M) PART A Feb 17, 2003 PART A [id number] HOLLIE SHEPHERD PATIENT MEDICARE ([place]NR) MEDICARE (M) PART B Feb 17, 2003 PART B [id number] HOLLIE SHEPHERD PATIENT MEDICARE (WNR) MEDICARE (M) PART A Feb 17, 2003 PART A [id number] HOLLIE SHEPHERD PATIENT MEDICARE (WNR) MEDICARE (M) PART B Feb 17, 2003 PART B [id number] HOLLIE SHEPHERD PATIENT Selected Encounter This section includes the information on record at [place] for the Encounter. Date/Time Encounter Type Encounter Description Reason Pro vider Source Sep 13, 2023 02:42 PM Outpatient Encounter TELEPHONE IHE Encounter Template Text not used by [place] Plan of Treatment: Future Appointments (+ 6 months) and Future Tests (+/- 45 days) The Plan of Treatment section includes future care activities for the patient from all [place] treatmentfacilities. This section includes future appointments and future orders which are active, pending or scheduled. Future Appointments This section includes appointments that were scheduled to occur 6 months from the date of the Encounter, up to a maximum of 20 appointments. The data comes from all [place] treatment facilities. Appointment Date/Time Appointment Type Appointme nt Facility Name Oct 09, 2023 10:00 AM AMBULATORY - MEDICINE [place] [facility] [facility] Oct 10, 2023 02:30 PM AMBULATORY - MEDICINE [facility] [place] [facility] October 18, 2023 01:00 PM AMBULATORY - MEDICINE [place] [facility] [place] [facility] November 01, 2023 10:30 AM AM[place]ULATORY [place] [facility] November 01, 2023 10:30 AM AMBULATORY - PSYCHIATRY [place] [facility] [place] [facility] November 01, 2023 11:15 AM AMBULATORY - MEDICINE [place] [facility] November 01, 2023 01:30 PM AMBULATORY - MEDICINE [place] [facility] November 02, 2023 11:15 AM AMBULATORY - MEDICINE [place] [facility] November 02, 2023 11:30 AM AMBULATORY - MEDICINE [place] [facility] November 06, 2023 02:50 PM AMBULATORY - MEDICINE [place] [facility] Nov 22, 2023 10:00 AM AMBULATORY - MEDICINE [place] [facility] [place] [place] [facility] Nov 27, 2023 02:00 PM AMBULATORY - MEDICINE [place] [facility] Feb 12, 2024 10:00 AM AM[place]ORY [place]IC[place] [facility] Feb 28, 2024 01:00 PM AMBULATORY [place] [facility] Feb 28, 2024 01:00 PM AMBULATORY - [place]RY [place] [facility] [facility] Active, Pending, and Scheduled Orders This section includes a listing of several types of active, pending, and scheduled orders, including clinic medications orders, diagnostic test orders, procedure orders and consult orders; where the start date of the order is 45 days before the date of the Encounter or 45 days after the date of theEncounter. The data comes from all [place] treatment facilities. Test Date/Time Test Type Test Details Facility Name Oct 10, 2023 12:00 AM Laboratory - Chemi stry Order SURGICAL PATH ORDER SURG PATH SPEC. UNKNOWN SP [place] [facility] [place] [facility] Lab Results: +/- 30 days [...] Range Comment Oct 11, 2023 01:27 PM [facility] MICROALBUMIN CREATININE RATIO PANEL Specimen Type: URINE No comment entered. Ordering Provider: ALLIE CUELLO Report Released Date/Time: Jul 26, 2023 10:12 AM Reporting Lab: [address] [address] Performing Lab: [address] [address] MICROALBUMIN/C REATININE RATIO 7.1 mg/g 0-29.9 MICROALBUMIN,Q UANTITATIVE 0.8 mg/dL RR UNAVAIL CREATININE URINE 113.29 mg/dL Oct 10, 2023 03:42 PM [facility] LIVER FUNCTION Specimen Type: SERUM Comment: *BASIC METABOLIC PANEL (fasting) Not Performed: Oct 10, 2023@15:51 b *SCADA TECHNICIAN Reason: dup *LIPID PANEL FASTING Not Performed: Oct 10, 2023@15:51 by [id number] *SCADA TECHNICIAN Reason: dup Ordering Provider: JUAN LUIS CAI Report Released Date/Time: Jun 05, 2023 11:22 AM Reporting Lab: [facility] [address] [facility] [address] Performing Lab: [address] [address] PROTEIN,TOTAL 6.0 g/dL 6.0-8.3 ALBUMIN 4.2 g/dL 3.5-5.0 ALKALINE PHOSPHATASE 89 U/L 40-150 AST 29 U/L 5-34 ALT 29 U/L BILIRUBIN, TOTAL 1.3 mg/dL H 0.2-1.2 BILIRUBIN, DIRECT 0.5 mg/dL 0-0.5 Oct 10, 2023 03:41 PM [facility] TESTOSTERONE, TOTAL (WHV) Specimen Type: SERUM No comment entered. Ordering Provider: ALLIE CUELLO Report Released Date/Time: Jul 26, 2023 10:12 AM Reporting Lab: [facility] [address] [facility] [address] Performing Lab: [facility] [address] [address] TESTOSTERONE, TOTAL (WHV) 755.20 ng/dL 220.00-892 .00 Oct 10, 2023 03:[address] [address] [facility] PSA Specimen Type: SERUM No comment entered. Ordering Provider: ALLIE CUELLO Report Released Date/Time: Jul 26, 2023 10:12 AM Reporting Lab: [facility] [address] [facility] [address] Performing Lab: [facility] [address] [address] PSA 4.74 ng/mL H 0.00-4.00 Oct 10, 2023 03:41 PM [facility] HEMOGLOBIN A1C PANEL Specimen Type: BLOOD Comment: Values obtained from A1C measurements can vary. For atypical A1C assays, a reported value of 7.0 could actually be between 6.72 and 7.28 if measured by a reference method. A reported value of 9.0 could actually be between 8.73 and 9.27. Ref: http://www.ngs p.org/CAPdata. asp Ordering Provider: ALLIE CUELLO Report Released Date/Time: Jul 26, 2023 10:12 AM Reporting Lab: [facility] [address] Performing Lab: [facility] [address] HEMOGLOBIN A1C 6.7 H 4.0-5.6 Oct 10, 2023 03:41 PM [facility] LIPID PANEL FASTING Specimen Type: SERUM No comment entered. Ordering Provider: ALLIE CUELLO Report Released Date/Time: Jul 26, 2023 10:12 AM Reporting Lab: [facility] [address] [facility] [address] Performing Lab: [facility] [address] [address] CHOLESTEROL 96 mg/dL TRIGLYCERIDE 101 mg/dL 0-150 LDL calculated 44 mg/dL 0-129 CHOL/HDL 3.0 HDL CHOLESTEROL 32 mg/dL L 40-60 Oct 10, 2023 03:41 PM [facility] CALCIUM Specimen Type: SERUM No comment entered. Ordering Provider: ALLIE CUELLO Report Released Date/Time: Oct 10, 2023 07:35 AM Reporting Lab: [facility]VERS[facility] [address] Performing Lab: [address] [address] CALCIUM 9.1 mg/dL 8.5-10.2 Oct 10, 2023 03:41 PM [facility] CBC Specimen Type: BLOOD No comment entered. Ordering Provider: ALLIE CUELLO Report Released Date/Time: Jul 26, 2023 10:12 AM Reporting Lab: [address] [address] Performing Lab: [address] [address] WBC 5.42 10*3/uL 4.50-11.00 RBC 4.87 10*6/uL 4.23-5.66 HGB 12.5 g/dL L 12.8-17 HCT 39.4 39.2-50.4 MCV 80.9 fL L 82-99 MCHC 31.7 g/dL 30.8-35.1 PLT 123 10*3/uL L 140-360 RDW-CV 14.7 12.0-16.0 MCH 25.7 pg L 26.2-32.6 Oct 10, 2023 03:41 PM [facility] VITAMIN D (25-OH) Specimen Type: SERUM No comment entered. Ordering Provider: ALLIE CUELLO Report Released Date/Time: Oct 10, 2023 07:35 AM Reporting Lab: [address] [address] Performing Lab: [address] [address] VITAMIN D (25-OH) 41 ng/mL 20-50 Oct 10, 2023 03:41 PM [facility] BASIC METABOLIC PANEL (fasting) Specimen Type: SERUM No comment entered. Ordering Provider: ALLIE CUELLO Report Released Date/Time: Jul 26, 2023 10:12 AM Reporting Lab: [facility] [address] [facility] [address] Performing Lab: [facility] [address] [facility] [address] UREA NITROGEN 22 mg/dL 7-25 GLUCOSE 172 mg/dL H 65-100 SODIUM 137 mmol/L 135-145 POTASSIUM 4.0 mmol/L 3.5-5.0 CHLORIDE 101 mmol/L 100-110 CO2 26 meq/L 20-30 CREATININE, Serum 1.26 mg/dL 0.50-1.40 eGFR(CKD-EPI 2020) 56 mL/min L >60 Social History: Smoking Status (Most current) and Tobacco Use (All prior to encounter date) This section includes the most current, and the historical, smoking and tobacco- related health factors from the [place] facility where the Encounter took place. Current Smoking Status This section includes the most current smoking, or tobacco-related health factor, from the [place] facility where the Encounter took place. Date/Time Current Smoking Status Comment [facility] Jun 05, 2023 11:00 AM VA-TOBACCO FORMER USER [facility] Tobacco Use History This section includes a history of the smoking, or tobacco-related health factors, that were collected on or before the date of the Encounter. The data comes from the [place] facility where the Encounter took place. Date/Time Smoking Status/Tobac co Use Comment Facility Jun 05, 2023 11:00 AM VA-TOBACCO QUIT 15 YRS OR MORE [facility] Jun 06, 2022 01:00 PM VA-TOBACCO [facility] Jun 06, 2022 01:00 PM VA-TOBACCO QUIT 15 YRS [facility] Jun 30, 2021 02:37 PM VA-TOBACCO [facility] Jun 30, 2021 02:37 PM VA-TOBACCO QUIT 5 TO < 15 YRS [place] [facility] May 22, 2020 03:30 PM VA-TOBACCO NEVER USED [facility] May 08, 2018 02:03 PM VA-TOBACCO FORMER USER [place] [facility] [facility] [facility] May 08, 2018 02:03 PM VA-TOBACCO QUIT 15 YRS OR MORE [facility] November 10, 2017 02:33 PM QUIT TOBACCO USE > 7 YEARS AGO [place] [facility] October 21, 2016 01:55 PM QUIT TOBACCO USE > 7 YEARS AGO [facility] Sep 18, 2015 11:24 AM QUIT TOBACCO USE > 7 YEARS AGO stopped 50 years ago [facility] May 19, 2005 08:01 AM [facility] May 31, 2004 01:02 PM HISTORY OF SMOKING [facility] Jun 04, 2003 07:57 AM HISTORY OF SMOKING [facility] Jun 03, 2002 01:11 PM HISTORY OF SMOKING [facility] Jun 03, 2002 01:11 PM QUIT TOBACCO USE > [facility] Advance Directives: All historical and current Section Date Range: From patient's date of to the date document was created. This section includes ALL of a patient's completed or amended [place] Advance and Rescinded Directives. The entries below indicate that a directive exists for the patient, but an actual copy is not included with this document. The data comes from all [place] facilities. Date Advance Directives Provider Source Jun 02, 2023 ADVANCE DIRECTIVE JENNIFER QUIROS [facility] Pathology Reports: +/- 30 days of the [...] the Encounter. The data comes from all [place] treatment facilities. Date/Time Pathology Report Provider Source Oct 12, 2023 10:54 AM LR SURGICAL PATHOLOGY REPORT: LOCAL TITLE: LR SURGICAL PATHOLOGY REPORT STANDARD TITLE: PATHOLOGY DIAGNOSTIC STUDY REPORT DATE OF NOTE: OCT 12, 2023@10:54:23 ENTRY DATE: OCT 12, 2023@10:54:23 AUTHOR: LESTER ANDERSON MD EXP COSIGNER: URGENCY: STATUS: COMPLETED $APHDR Reporting Lab: [facility] [CLIA# [id number]] [address] [place] [address] - - - - - - - [...] - - - PATHOLOGY REPORT [facility] 24 [id number] - - - - - [...] - - - - BRIEF CLINICAL HISTORY: SP SPECIMEN A: CENTRAL UPPER FOREHEAD 1CM ERYTHERMATOUS PAPULE SPECIMEN B: R TEMPORAL SCALP 3CM HYPERPIGMENTED PLAQUE - - - - - - - - - - - - - - - - - - - - - - - - - - - - - - - - - - - - - - - - PREOPERATIVE DIAGNOSIS: SP SPECIMEN A: R/O SCC SPECIMEN B: SK [...] - - - PATHOLOGY REPORT Accession No. [facility] 24 174 - - - - - - - - - - - - - - - - - - - - - - - - - - - - - - - - - - - - - - - - Gross description: [facility] 24 [id number];A;1;CORA,R This is a [facility] case number [facility] 24 [id number]. Received in formalin is a [...] lateral and deep tissue margins. CPT codes [id number] /thomas/ LESTER ANDERSON MD Board Certified Dermatopathologist Signed Oct 12, 2023@10:54 Performing Laboratory: Surgical Pathology Report Performed By: [facility] [CLIA# [id number]] [address] [place] [address] $FTR - - - - - - - - - - - - - - - - - - - - - - - - - - - - - - - - - - - - - - - - (End of report) LESTER ANDERSON MD, MD Date Oct 12, 2023 - - - - - - - - - - - - - - - - - - - - - - - - - - - - - - - - - - - - - - - - BEBO SHEPHERD STANDARD FORM 515 ID:[id number] SEX:M :1940 AGE: 83 LOC:CWM/NO/CVT/DERMATOLOGY/N P PCP: RUBY Long /thomas/ LESTER ANDERSON MD Board Certified Dermatopathologist Signed: 10/12/2023 10:54 LESTER ANDERSON MD [facility] Encounter Notes: All associated encounter notes This section contains the clinical notes associated to the Encounter. Date/Time Encounter Note(s) Provider Source Sep 13, 2023 02:43 PM MENTAL HEALTH NOTE : LOCAL TITLE: [facility] CC ASSIGNMENT STANDARD TITLE: MENTAL HEALTH NOTE DATE OF NOTE: SEP 13, 2023@14:43 ENTRY DATE: SEP 13, 2023@14:43:11 AUTHOR: JEAN MARIE CARNEY EXP COSIGNER: URGENCY: STATUS: COMPLETED Mental Health Landing Gear Mechanic Assignment Reassignment [facility] current Mental Health Landing Gear Mechanic (MHTC) is: MH Treatment Team: IVAN Hilton Landing Gear Mechanic: ALBA HALE Office , [id number] Analog Pager: Digital Pager: This note documents the REASSIGNMENT of the [facility] Landing Gear Mechanic (MHTC) on Aug. New MHTC name: [facility] Contact Information: [phone], [phone] This [facility] existing MHTC was reassigned due to: [facility] is transitioning to a new [facility] Team /thomas/ JEAN MARIE CARNEY [facility] ROUGH ROUNDER Signed: 09/13/2023 14:49 JEAN MARIE CARNEY [facility]
--- OUTSIDE RECORDS SUMMARY | 2024-06-14 13:18 | XMS_ITS | Encounter Summary ---
Author Name [facility] Organization [facility] [place] Address [address] [place] [id number] Care Team Providers Care Access Services Librarian Name Role Phone TOÑO PETER Primary Care [...] Relationship to Policy Wen [place] MED[place] SUPPLEMEN MASTER PSUED O MEDEX BRON E Mar 19, 2004 [id number] HOLLIE SHEPHERD PATIENT [place] SUPPLEMEN MASTER MEDEX BRONZ E Mar 19, 2004 [id number] HOLLIE SHEPHERD [place] SUPPLEMEN MASTER MEDEX BRONZ E Mar 19, 2004 [id number] [phone] HOLLIE SHEPHERD PATIENT BCBS [facility] MEDICARE SUPPLEMEN MASTER PSUED O MEDEX BRONZ E Mar 19, 2004 [id number] [phone] HOLLIE SHEPHERD PATIENT MEDICARE (WNR) MEDICARE (M) PART B Mar 19, 2004 PART B [id number] [phone] HOLLIE SHEPHERD PATIENT MEDICARE (WNR) MEDICARE (M) PART B Mar 19, 2004 PART B [id number] [phone] HOLLIE SHEPHERD PATIENT MEDICARE (WNR) MEDICARE (M) PART B Mar 19, 2004 PART B [id number] [phone] HOLLIE SHEPHERD ALD PATIENT MEDICARE (WNR) MEDICARE (M) PART A Feb 17, 2003 PART A [id number] [phone] HOLLIE SHEPHERD ALD PATIENT MEDICARE (WNR) MEDICARE (M) PART A Feb 17, 2003 PART A [id number] HOLLIE SHEPHERD PATIENT MEDICARE (WNR) MEDICARE (M) PART A Feb 17, 2003 PART A [id number] [phone] HOLLIE SHEPHERD PATIENT MEDICARE (WNR) MEDICARE (M) PART A Feb 17, 2003 PART A [id number] HOLLIE SHEPHERD PATIENT MEDICARE (WNR) MEDICARE (M) PART B Feb 17, 2003 PART B [id number] HOLLIE SHEPHERD PATIENT MEDICARE (WNR) MEDICARE (M) PART A Feb 17, 2003 PART A [id number] HOLLIE HSEPHERD PATIENT MEDICARE (WNR) MEDICARE (M) PART B Feb 17, 2003 PART B [id number] HOLLIE SHEPHERD PATIENT Selected Encounter This section includes the information on record at [place] for the Encounter. Date/Time Encounter Type Encounter Description Reason Pro vider Source Oct 09, 2023 09:42 PM Outpatient Encounter ADMIN PAT ACTIVTIES (MASNONCT) IHE Encounter Template Text not used by [place] Plan of Treatment: Future Appointments (+ 6 months) and Future Tests (+/- 45 days) The Plan of Treatment section includes future care activities for the patient from all [place] treatmentfacilities. This section includes future appointments and future orders which are active, pending or scheduled. Future Appointments This section includes appointments that were scheduled to occur 6 months from the date of the Encounter, up to a maximum of 20 appointments. The data comes from all [place] treatment facilities. Appointment Date/Time Appointment Type Appointme nt Facility Name Oct 10, 2023 02:30 PM AMBULATORY [facility] MEDICINE [facility] [place] [facility] October 18, 2023 01:00 PM AMBULATORY - MEDICINE [facility] [place] [facility] November 01, 2023 10:30 AM AMBULATORY [place] [facility] November 01, 2023 10:30 AM AMBULATORY - PS[facility]CHIATRY [facility] [place] [facility] November 01, 2023 11:15 AM AMBULATORY - MEDICINE [facility] [place] [facility] November 01, 2023 01:30 PM AMBULATORY - MEDICINE [facility] [place] [facility] November 02, 2023 11:15 AM AMBULATORY - MEDICINE [facility] [place] [facility] November 02, 2023 11:30 AM AMBULATORY - MEDICINE [facility] [place] [facility] November 06, 2023 02:50 PM AMBULATORY - MEDICINE [facility] [place] [facility] Nov 22, 2023 10:00 AM AMBULATORY - MEDICINE [facility] [place] [facility] Nov 27, 2023 02:00 PM AMBULATORY - MEDICINE [facility] [place] [facility] Feb 12, 2024 10:00 AM AMBULATORY - MEDICINE [facility] [place] [facility] Feb 28, 2024 01:00 PM AMBULATORY [place] [facility] Feb 28, 2024 01:00 PM AMBULATORY - PS[facility]CHIATRY [facility] [place] [facility] Mar 25, 2024 10:00 AM AMBULATORY - MEDICINE [facility] [place] [facility] Mar 25, 2024 10:30 AM AMBULATORY - MEDICINE [facility] [place] [facility] Apr 02, 2024 02:00 PM AMBULATORY - MEDICINE [facility] [place] [facility] Apr 04, 2024 02:00 PM AMBULATORY - MEDICINE [facility] [place] [facility] Apr 08, 2024 01:00 PM AMBULATORY - REHAB MEDICIN E [facility] [place] [facility] Active, Pending, and Scheduled Orders This section includes a listing of several types of active, pending, and scheduled orders, including clinic medications orders, diagnostic test orders, procedure orders and consult orders; where the start date of the order is 45 days before the date of the Encounter or 45 days after the date of theEncounter. The data comes from all [place] treatment facilities. Test Date/Time Test Type Test Details Facility Name Oct 10, 2023 12:00 AM Laboratory - Chemi stry Order SURGICAL PATH ORDER SURG PATH SPEC. UNKNOWN SP [facility] Lab Results: +/- 30 days of the encounter This section includes the Chemistry and Hematology Lab Results on record with [place] for the patient. Radiology Reports and Pathology Reports are provided separately, in subsequent sections. Lab Results This section contains the Chemistry/Hematology Results that were resulted 30 days before or 30 daysafter the date of the Encounter. Date/Time Source Result Type Result - Unit Interpretation Reference Range Comment Oct 11, 2023 01:27 PM [facility] MICROALBUMIN CREATININE RATIO PANEL Specimen Type: URINE No comment entered. Ordering Provider: ALLIE CUELLO Report Released Date/Time: Jul 26, 2023 10:12 AM Reporting Lab: [facility] [address] [facility] [address] Performing Lab: [facility] [address] [facility] [address] MICROALBUMIN/C REATININE RATIO 7.1 mg/g 0-29.9 MICROALBUMIN,Q UANTITATIVE 0.8 mg/dL RR UNAVAIL CREATININE URINE 113.29 mg/dL Oct 10, 2023 03:42 PM [facility] LIVER FUNCTION Specimen Type: SERUM Comment: *BASIC METABOLIC PANEL (fasting) Not Performed: Oct 10, 2023@15:51 b *WIG COMBER Reason: dup *LIPID PANEL FASTING Not Performed: Oct 10, 2023@15:51 by [id number] *WIG COMBER Reason: dup Ordering Provider: JUAN LUIS PETER Report Released Date/Time: Jun 05, 2023 11:22 AM Reporting Lab: [facility] [address] [facility] [address] Performing Lab: [facility] [address] [facility] [address] PROTEIN,TOTAL 6.0 g/dL 6.0-8.3 ALBUMIN 4.2 g/dL 3.5-5.0 ALKALINE PHOSPHATASE 89 U/L 40-150 AST 29 U/L 5-34 ALT 29 U/L BILIRUBIN, TOTAL 1.3 mg/dL H 0.2-1.2 BILIRUBIN, DIRECT 0.5 mg/dL 0-0.5 Oct 10, 2023 03:41 PM [facility] TESTOSTERONE, TOTAL (WHV) Specimen Type: SERUM No comment entered. Ordering Provider: ALLIE CUELLO Report Released Date/Time: Jul 26, 2023 10:12 AM Reporting Lab: [facility] [address] [facility] [address] Performing Lab: [address] [address] TESTOSTERONE, TOTAL (V) 755.20 ng/dL 220.00-892 .00 Oct 10, 2023 03:41 PM [facility] PSA Specimen Type: SERUM No comment entered. Ordering Provider: ALLIE CUELLO Report Released Date/Time: Jul 26, 2023 10:12 AM Reporting Lab: [address] [address] Performing Lab: [address] [address] PSA 4.74 ng/mL H 0.00-4.00 Oct 10, 2023 03:41 PM [facility] HEMOGLOBIN A1C PANEL Specimen Type: BLOOD [...] Jul 26, 2023 10:12 AM Reporting Lab: [address] [address] Performing Lab: [address] [address] HEMOGLOBIN A1C 6.7 H 4.0-5.6 Oct 10, 2023 03:41 PM [facility] LIPID PANEL FASTING Specimen Type: SERUM No comment entered. Ordering Provider: ALLIE CUELLO Report Released Date/Time: Jul 26, 2023 10:12 AM Reporting Lab: [facility] [address] [facility] [address] Performing Lab: [facility] [address] [facility] [address] CHOLESTEROL 96 mg/dL TRIGLYCERIDE 101 mg/dL 0-150 LDL calculated 44 mg/dL 0-129 CHOL/HDL 3.0 HDL CHOLESTEROL 32 mg/dL L 40-60 Oct 10, 2023 03:41 PM [facility] CALCIUM Specimen Type: SERUM No comment entered. Ordering Provider: ALLIE CUELLO Report Released Date/Time: Oct 10, 2023 07:35 AM Reporting Lab: [address] [address] Performing Lab: [facility] [address] CALCIUM 9.1 mg/dL 8.5-10.2 Oct 10, 2023 03:41 PM [facility] CBC Specimen Type: BLOOD No comment entered. Ordering Provider: ALLIE CUELLO Report Released Date/Time: Jul 26, 2023 10:12 AM Reporting Lab: [facility] [address] [address] Performing Lab: [facility] [address] [address] WBC 5.42 10*3/uL 4.50-11.00 RBC 4.87 10*6/uL 4.23-5.66 HGB 12.5 g/dL L 12.8-17 HCT 39.4 39.2-50.4 MCV 80.9 fL L 82-99 MCHC 31.7 g/dL 30.8-35.1 PLT 123 10*3/uL L 140-360 RDW-CV 14.7 12.0-16.0 MCH 25.7 pg L 26.2-32.6 Oct 10, 2023 03:41 PM [facility] VITAMIN D (25-OH) Specimen Type: SERUM No comment entered. Ordering Provider: ALLIE CUELLO Report Released Date/Time: Oct 10, 2023 07:35 AM Reporting Lab: [facility] [address] [facility] [address] Performing Lab: [address] [address] VITAMIN D (25-OH) 41 ng/mL 20-50 Oct 10, 2023 03:41 PM [facility] BASIC METABOLIC PANEL (fasting) Specimen Type: SERUM No comment entered. Ordering Provider: ALLIE CUELLO Report Released Date/Time: Jul 26, 2023 10:12 AM Reporting Lab: [facility] [address] [facility] [address] Performing Lab: [address] [address] UREA NITROGEN 22 mg/dL 7-25 GLUCOSE 172 mg/dL H 65-100 SODIUM 137 mmol/L 135-145 POTASSIUM 4.0 mmol/L 3.5-5.0 CHLORIDE 101 mmol/L 100-110 CO2 26 meq/L 20-30 CREATININE, Serum 1.26 mg/dL 0.50-1.40 eGFR(CKD-EPI 2020) 56 mL/min L >60 Vital Signs: All taken on the encounter date This section contains inpatient and outpatient Vital Signs collected on the date of the Encounter. Date/Time Temperature Pulse Blood Pressure Respiratory Rate SP02 Pain Height Weight Body Mass Index Source Oct 09, 2023 10:02 AM 97.8 87 118/74 18 97 4 184 31 [facility] Social History: Smoking Status (Most current) and Tobacco Use (All prior to encounter date) This section includes the most current, and the historical, smoking and tobacco- related health factors from the [place] facility where the Encounter took place. Current Smoking Status This section includes the most current smoking, or tobacco-related health factor, from the [place] facility where the Encounter took place. Date/Time Current Smoking Status Comment Facil [facility] Jun 05, 2023 11:00 AM VA-TOBACCO FORMER USER [facility] [place] [facility] Tobacco Use History This section includes a history of the smoking, or tobacco-related health factors, that were collected on or before the date of the Encounter. The data comes from the [place] facility where the Encounter took place. Date/Time Smoking Status/Tobac co Use Comment Facility Jun 05, 2023 11:00 AM VA-TOBACCO QUIT 15 YRS OR MORE [place] [facility] [place] [facility] Jun 06, 2022 01:00 PM VA-TOBACCO FORMER USER [facility] [place] [facility] Jun 06, 2022 01:00 PM VA-TOBACCO QUIT 15 YRS OR MORE [facility] [place] [facility] Jun 30, 2021 02:37 PM VA-TOBACCO FORMER USER [facility] [place] [facility] Jun 30, 2021 02:37 PM VA-TOBACCO QUIT 5 TO < 15 YRS [place] [facility] [place] [facility] May 22, 2020 03:30 PM VA-TOBACCO NEVER USED [place] [facility] [place] [facility] May 08, 2018 02:03 PM VA-TOBACCO FORMER USER [place] [facility] [place] [facility] May 08, 2018 02:03 PM VA-TOBACCO QUIT 15 YRS OR MORE [facility] [place] [facility] November 10, 2017 02:33 PM QUIT TOBACCO USE > 7 YEARS AGO [facility] [place] [facility] October 21, 2016 01:55 PM QUIT TOBACCO USE > 7 YEARS AGO [facility] [place] [facility] Sep 18, 2015 11:24 AM QUIT TOBACCO USE > 7 YEARS AGO stopped 50 years ago [facility] [place] [facility] May 19, 2005 08:01 AM HISTORY OF SMOKING [place] [facility] [place] [facility] May 31, 2004 01:02 PM HISTORY OF SMOKING [facility] [place] [facility] Jun 04, 2003 07:57 AM HISTORY OF SMOKING [facility] [place] [facility] Jun 03, 2002 01:11 PM HISTORY OF SMOKING [facility] [place] [facility] Jun 03, 2002 01:11 PM QUIT TOBACCO USE > 7 YEARS AGO [place] [facility] [place] [facility] Advance Directives: All historical and current Section Date Range: From patient's date of to the date document was created. This section includes ALL of a patient's completed or amended [place] Advance and Rescinded Directives. The entries below indicate that a directive exists for the patient, but an actual copy is not included with this document. The data comes from all [place] facilities. Date Advance Directives Provider Source Jun 02, 2023 ADVANCE DIRECTIVE PEREZJENNIFER PABLO Garcia [facility] Pathology Reports: +/- 30 days of the [...] the Encounter. The data comes from all [place] treatment facilities. Date/Time Pathology Report Provider Source Oct 12, 2023 10:54 AM [facility] SURGICAL PATHOLOGY REPORT: LOCAL TITLE: LR SURGICAL PATHOLOGY REPORT STANDARD TITLE: PATHOLOGY DIAGNOSTIC STUDY REPORT DATE OF NOTE: OCT 12, 2023@10:54:23 ENTRY DATE: OCT 12, 2023@10:54:23 AUTHOR: LESTER ANDERSON MD EXP COSIGNER: URGENCY: STATUS: COMPLETED $APHDR Reporting Lab: [place] [facility] [CLIA# [id number]] [address] [place] [address] - - - - - - - [...] - - - PATHOLOGY REPORT Accession No. SPATH [id number] - - - - - [...] - - - - BRIEF CLINICAL HISTORY: SPECIMEN A: CENTRAL UPPER FOREHEAD 1CM ERYTHERMATOUS PAPULE SPECIMEN B: R TEMPORAL SCALP 3CM HYPERPIGMENTED PLAQUE - - - - - - - - - - - - - - - - - - - - - - - - - - - - - - - - - - - - - - - - PREOPERATIVE DIAGNOSIS: SPECIMEN A: R/O SCC SPECIMEN B: SK [...] - - - PATHOLOGY REPORT Accession No. [facility] 174 - - - - - - - - - - - - - - - - - - - - - - - - - - - - - - - - - - - - - - - - Gross description: [facility] [id number];A;1;Nisa SHEPHERD This is a [facility] case number [facility] [id number]. Received in formalin is [...] lateral and deep tissue margins. CPT codes 91721t3 /thomas/ LESTER ANDERSON MD Board Certified Dermatopathologist Signed Oct 12, 2023@10:54 Performing Laboratory: Surgical Pathology Report Performed By: [facility] [CLIA# [id number]] [address] [place] [id number] $FTR - - - - - - [...] - - BEBO SHEPHERD STANDARD FORM 515 ID:[id number] SEX:M :1940 AGE: 83 LOC:CWM/NO/CVT/DERMATOLOGY/N P PCP: RUBY Long /thomas/ LESTER ANDERSON MD Board Certified Dermatopathologist Signed: 10/12/2023 10:54 LESTER ANDERSON MD [facility] [place] [facility] Encounter Notes: All associated encounter notes This section contains the clinical notes associated to the Encounter. Date/Time Encounter Note(s) Provider Source Oct 09, 2023 09:43 PM PHARMACY NOTE: LOCAL TITLE: V1 PHARMACY CUSTOMER CARE MEDICATION RENEWAL STANDARD TITLE: PHARMACY NOTE DATE OF NOTE: OCT 09, 2023@21:43 ENTRY DATE: OCT 09, 2023@21:43:35 AUTHOR: BARBARA SCHULZ COSIGNER: URGENCY: STATUS: COMPLETED Date: Sep Division: [place] Pt referred by Pharmacy Call Center for medication renewal: Non-controlled/maintenanc e medication Medications requested: [id number] CITALOPRAM HYDROBROMIDE 20MG TAB Defer to specialty clinic To be mailed . Please review and renew if appropriate. *This note was generated by [facility] Pharmacy Customer Care. If you have any questions or need assistance, do not contact this author. Please refer all questions to your local, on-site pharmacy departments. /benny SCHULZ CPhT Coroner Technician, [place]/Pharmacy Customer Care Signed: 10/09/2023 21:43 Receipt Acknowledged By: 10/10/2023 08:18 /thomas/ Scott Paul MD PSYCHIATRIST, PSYCHIATRY BARBARA SCHULZ [place] [facility] Oct 09, 2023 09:42 PM PHARMACY NOTE: LOCAL TITLE: V1 PHARMACY CUSTOMER CARE MEDICATION RENEWAL STANDARD TITLE: PHARMACY NOTE DATE OF NOTE: OCT 09, 2023@21:42 ENTRY DATE: OCT 09, 2023@21:42:51 AUTHOR: BARBARA SCHULZ COSIGNER: URGENCY: STATUS: COMPLETED Date: Sep Division: [place] Pt referred by Pharmacy Call Center for medication renewal: Non-controlled/maintenanc e medication Medications requested: [id number] TAMSULOSIN HCL 0.4MG CAP Defer to primary care provider To be mailed . Please review and renew if appropriate. *This note was generated by [facility] Pharmacy Customer Care. If you have any questions or need assistance, do not contact this author. Please refer all questions to your local, on-site pharmacy departments. /benny SCHULZ CPhT Coroner Technician, [place]/Pharmacy Customer Care Signed: 10/09/2023 21:43 Receipt Acknowledged By: 10/10/2023 09:19 /thomas/ VIJAYA KENDALL RN REGISTERED NURSE 10/10/2023 09:15 /es/ Toño Peter PA-C STAFF PHYSICIAN ASSESSMENT CONSULTANT BARBARA SCHULZ [facility] [place] [facility]
--- OUTSIDE RECORDS SUMMARY | 2024-06-14 13:19 | XMS_ITS | Encounter Summary ---
Author Name [facility] ([place]) Organization [facility] ([place]) Address [address] [place] [id number] Care Team Providers Care Scout Name Role Phone TOÑO CAI Primary Care [...] [place] MED[place] SUPPLEMEN MASTER PSUED O MEDEX [facility] E Mar 19, 2004 [id number] [phone] HOLLIE SHEPHERD PATIENT [place] SUPPLEMEN MASTER MEDEX [place] E Mar 19, 2004 [id number] [phone] HOLLIE SHEPHERD [place] SUPPLEMEN MASTER MEDEX [place] E Mar 19, 2004 [id number] [phone] HOLLIE SHEPHERD PATIENT BCBS [facility] MEDICARE SUPPLEMEN MASTER PSUED O MEDEX [place] E Mar 19, 2004 [id number] HOLLIE SHEPHERD PATIENT MEDICARE (WNR) MEDICARE (M) PART B Mar 19, 2004 PART B [id number] HOLLIE SHEPHERD PATIENT MEDICARE (WNR) MEDICARE (M) PART B Mar 19, 2004 PART B [id number] CORAHOLLIE SILVA ALD PATIENT MEDICARE (WNR) MEDICARE (M) PART B Mar 19, 2004 PART B [id number] CORAHOLLIE SILVA ALD PATIENT MEDICARE (WNR) MEDICARE (M) PART A Feb 17, 2003 PART A [id number] CORA,HOLLIE ALD PATIENT MEDICARE (WNR) MEDICARE (M) PART A Feb 17, 2003 PART A [id number] [phone] CORAHOLLIE SILVA ALD PATIENT MEDICARE (WNR) MEDICARE (M) PART A Feb 17, 2003 PART A [id number] CORAHOLLIE SILVA PATIENT MEDICARE (WNR) MEDICARE (M) PART A Feb 17, 2003 PART A [id number] CORAHOLLIE SILVA PATIENT MEDICARE (WNR) MEDICARE (M) PART B Feb 17, 2003 PART B [id number] [phone] CORAHOLLIE SILVA PATIENT MEDICARE (WNR) MEDICARE (M) PART A Feb 17, 2003 PART A [id number] [phone] HOLLIE SHEPHERD PATIENT MEDICARE (WNR) MEDICARE (M) PART B Feb 17, 2003 PART B [id number] [phone] HOLLIE SHEPHERD PATIENT Selected Encounter This section includes the information on record at OR for the Encounter. Date/Time Encounter Type Encounter Description Reason Provider Source November 01, 2023 01:30 PM OFFICE O/P EST LOW 20 MIN PRIMARY CARE/MEDICINE ICD-10-CM S41.111A Laceration w/o foreign body of right upper arm, ABDIEL Cavanaugh Mikey Encounter Template Text not used by OR Assessments - Encounter Diagnoses This section includes the primary and secondary diagnoses documented for the Encounter. Date/Time Primary/Secondary Diagnosis Diagnosis Name Provider Source Nov 24, 2023 03:47 PM PRIMARY Laceration w/o foreign body of right upper arm, ABDIEL Cavanaugh [facility] [place] [facility] Nov 24, 2023 03:47 PM SECONDARY Olecranon bursitis, right elbow ABDIEL DONAHUEH [facility] [place] [facility] Plan of Treatment: Future Appointments (+ 6 months) and Future Tests (+/- 45 days) The Plan of Treatment section includes future care activities for the patient from all VA treatmentfacilities. This section includes future appointments and future orders which are active, pending or scheduled. Future Appointments This section includes appointments that were scheduled to occur 6 months from the date of the Encounter, up to a maximum of 20 appointments. The data comes from all [place] treatment facilities. Appointment Date/Time Appointment Type Appointme nt Facility Name November 02, 2023 11:15 AM AMBULATORY - MEDICINE [facility] [place] [facility] November 02, 2023 11:30 AM AMBULATORY - MEDICINE [facility] [place] [facility] November 06, 2023 02:50 PM AMBULATORY - MEDICINE [facility] [place] [facility] Nov 22, 2023 10:00 AM AMBULATORY - MEDICINE [facility] [place] [facility] Nov 27, 2023 02:00 PM AMBULATORY - MEDICINE [facility] [place] [facility] Feb 12, 2024 10:00 AM AMBULATORY - MEDICINE [facility] [place] [facility] Feb 28, 2024 01:00 PM AMBULATORY [place] [facility] Feb 28, 2024 01:00 PM AMBULATORY - PSYCHIATRY [facility] [place] [facility] Mar 25, 2024 10:00 AM AMBULATORY - MEDICINE [facility] [place] [facility] Mar 25, 2024 10:30 AM AMBULATORY - MEDICINE [facility] [place] [facility] Apr 02, 2024 02:00 PM AMBULATORY - MEDICINE [facility] [place] [facility] Apr 04, 2024 02:00 PM AMBULATORY - MEDICINE [facility] [place] [facility] Apr 08, 2024 01:00 PM AMBULATORY - REHAB MEDICIN E [facility] [place] [facility] Apr 12, 2024 09:45 AM AMBULATORY - MEDICINE [facility] [place] [facility] Apr 16, 2024 10:00 AM AMBULATORY - [facility]ICIN [facility] [place] [facility] May 02, 2024 10:00 AM AMBULATORY - REHAB MEDICIN E [facility] Active, Pending, and Scheduled Orders This section includes a listing of several types of active, pending, and scheduled orders, including clinic medications orders, diagnostic test orders, procedure orders and consult orders; where the start date of the order is 45 days before the date of the Encounter or 45 days after the date of theEncounter. The data comes from all [place] treatment facilities. Test Date/Time Test Type Test Details Facility Name Oct 10, 2023 12:00 AM Laboratory - Chemi stry Order SURGICAL PATH ORDER SURG PATH SPEC. UNKNOWN SP [facility] Lab Results: +/- 30 days of the encounter This section includes the Chemistry and Hematology Lab Results on record with OR for the patient. Radiology Reports and Pathology Reports are provided separately, in subsequent sections. Lab Results This section contains the Chemistry/Hematology Results that were resulted 30 days before or 30 daysafter the date of the Encounter. Date/Time Source Result Type Result - Unit Interpretation Reference Range Comment Oct 11, 2023 01:27 PM [facility] MICROALBUMIN CREATININE RATIO PANEL Specimen Type: URINE No comment entered. Ordering Provider: ALLIE CUELLO Report Released Date/Time: Jul 26, 2023 10:12 AM Reporting Lab: [facility] [address] [facility] [address] Performing Lab: [facility] [address] [facility] [address] MICROALBUMIN/C REATININE RATIO 7.1 mg/g 0-29.9 MICROALBUMIN,Q UANTITATIVE 0.8 mg/dL RR UNAVAIL CREATININE URINE 113.29 mg/dL Oct 10, 2023 03:42 PM [facility] LIVER FUNCTION Specimen Type: SERUM Comment: *BASIC METABOLIC PANEL (fasting) Not Performed: Oct 10, 2023@15:51 b *KENNEL HAND Reason: dup *LIPID PANEL FASTING Not Performed: Oct 10, 2023@15:51 by [id number] *KENNEL HAND Reason: dup Ordering Provider: JUAN LUIS CAI Report Released Date/Time: Jun 05, 2023 11:22 AM Reporting Lab: [address] [address] Performing Lab: [address] [address] PROTEIN,TOTAL 6.0 g/dL 6.0-8.3 ALBUMIN 4.2 g/dL 3.5-5.0 ALKALINE PHOSPHATASE 89 U/L 40-150 AST 29 U/L 5-34 ALT 29 U/L BILIRUBIN, TOTAL 1.3 mg/dL H 0.2-1.2 BILIRUBIN, DIRECT 0.5 mg/dL 0-0.5 Oct 10, 2023 03:41 PM [facility] TESTOSTERONE, TOTAL (WHV) Specimen Type: SERUM No comment entered. Ordering Provider: ALLIE CUELLO Report Released Date/Time: Jul 26, 2023 10:12 AM Reporting Lab: [address] [address] Performing Lab: [address] [address] TESTOSTERONE, TOTAL (WHV) 755.20 ng/dL 220.00-892 .00 Oct 10, 2023 03:41 PM [facility] PSA Specimen Type: SERUM No comment entered. Ordering Provider: ALLIE CUELLO Report Released Date/Time: Jul 26, 2023 10:12 AM Reporting Lab: [address] [address] Performing Lab: [address] [address] PSA 4.74 ng/mL H 0.00-4.00 Oct 10, 2023 03:41 PM [facility] HEMOGLOBIN A1C PANEL Specimen Type: BLOOD [...] Jul 26, 2023 10:12 AM Reporting Lab: [facility] [address] [facility] [address] Performing Lab: [facility] [address] [address] HEMOGLOBIN A1C 6.7 H 4.0-5.6 Oct 10, 2023 03:41 PM [facility] CBC Specimen Type: BLOOD No comment entered. Ordering Provider: ALLIE CUELLO Report Released Date/Time: Jul 26, 2023 10:12 AM Reporting Lab: [facility] [address] [facility] [address] Performing Lab: [facility] [address] [address] WBC 5.42 10*3/uL 4.50-11.00 RBC 4.87 10*6/uL 4.23-5.66 HGB 12.5 g/dL L 12.8-17 HCT 39.4 39.2-50.4 MCV 80.9 fL L 82-99 MCHC 31.7 g/dL 30.8-35.1 PLT 123 10*3/uL L 140-360 RDW-CV 14.7 12.0-16.0 MCH 25.7 pg L 26.2-32.6 Oct 10, 2023 03:41 PM [facility] LIPID PANEL FASTING Specimen Type: SERUM No comment entered. Ordering Provider: ALLIE CUELLO Report Released Date/Time: Jul 26, 2023 10:12 AM Reporting Lab: [facility] [address] Performing Lab: [address] [address] CHOLESTEROL 96 mg/dL TRIGLYCERIDE 101 mg/dL 0-150 LDL calculated 44 mg/dL 0-129 CHOL/HDL 3.0 HDL CHOLESTEROL 32 mg/dL L 40-60 Oct 10, 2023 03:41 PM [facility] CALCIUM Specimen Type: SERUM No comment entered. Ordering Provider: ALLIE CUELLO Report Released Date/Time: Oct 10, 2023 07:35 AM Reporting Lab: [facility] [address] [facility] [address] Performing Lab: [address] [address] CALCIUM 9.1 mg/dL 8.5-10.2 Oct 10, 2023 03:41 PM [facility] VITAMIN D (25-OH) Specimen Type: SERUM No comment entered. Ordering Provider: ALLIE CUELLO Report Released Date/Time: Oct 10, 2023 07:35 AM Reporting Lab: [address] [address] Performing Lab: [address] [address] VITAMIN D (25-OH) 41 ng/mL 20-50 Oct 10, 2023 03:41 PM [facility] BASIC METABOLIC PANEL (fasting) Specimen Type: SERUM No comment entered. Ordering Provider: ALLIE CUELLO Report Released Date/Time: Jul 26, 2023 10:12 AM Reporting Lab: [address] [address] Performing Lab: [address] [address] UREA NITROGEN 22 mg/dL 7-25 GLUCOSE 172 [...] Pain Height Weight Body Mass Index Source November 01, 2023 11:33 AM 98.3 76 133/77 16 96 2 184 31 [facility] Social History: Smoking Status (Most current) and Tobacco Use (All prior to encounter date) This section includes the most current, and the historical, smoking and tobacco- related health factors from the OR facility where the Encounter took place. Current Smoking Status This section includes the most current smoking, or tobacco-related health factor, from the OR facility where the Encounter took place. Date/Time Current Smoking Status Comment [facility] Jun 05, 2023 11:00 AM VA-TOBACCO FORMER USER [place] [facility] [place] [facility] Tobacco Use History This section includes a history of the smoking, or tobacco-related health factors, that were collected on or before the date of the Encounter. The data comes from the OR facility where the Encounter took place. Date/Time Smoking Status/Tobac co Use Comment Facility Jun 05, 2023 11:00 AM VA-TOBACCO QUIT 15 YRS OR MORE [facility] [place] [facility] Jun 06, 2022 01:00 PM VA-TOBACCO FORMER USER [facility] [place] [facility] Jun 06, 2022 01:00 PM VA-TOBACCO QUIT 15 YRS OR MORE [facility] [place] [facility] Jun 30, 2021 02:37 PM VA-TOBACCO FORMER USER [facility] [place] [facility] Jun 30, 2021 02:37 PM VA-TOBACCO QUIT 5 TO < 15 YRS [facility] [place] [facility] May 22, 2020 03:30 PM VA-TOBACCO NEVER USED [place] [facility] [place] [facility] May 08, 2018 02:03 PM VA-TOBACCO FORMER USER [place] [facility] [place] [facility] May 08, 2018 02:03 PM VA-TOBACCO QUIT 15 YRS OR MORE [facility] [place] [facility] November 10, 2017 02:33 PM QUIT TOBACCO USE > 7 YEARS AGO [facility] [place] [facility] October 21, 2016 01:55 PM QUIT TOBACCO USE > 7 YEARS AGO [facility] [place] [facility] Sep 18, 2015 11:24 AM QUIT TOBACCO USE > 7 YEARS AGO stopped 50 years ago [facility] [place] [facility] May 19, 2005 08:01 AM HISTORY OF SMOKING [facility] [place] [facility] May 31, 2004 01:02 PM [facility] 04[facility] 2003 07:57 AM HISTORY OF SMOKING [facility] Jun 03, 2002 01:11 PM HISTORY OF SMOKING [facility] Jun 03, 2002 01:11 PM QUIT TOBACCO USE > 7 YEARS AGO [facility] Advance Directives: All historical and current Section Date Range: From patient's date of to the date document was created. This section includes ALL of a patient's completed or amended OR Advance and Rescinded Directives. The entries below indicate that a directive exists for the patient, but an actual copy is not included with this document. The data comes from all OR facilities. Date Advance Directives Provider Source Jun 02, 2023 ADVANCE DIRECTIVE JENNIFER QUIROS [facility] Pathology Reports: +/- 30 days of [...] the Encounter. The data comes from all [place] treatment facilities. Date/Time Pathology Report Provider Source Oct 12, 2023 10:54 AM LR SURGICAL PATHOLOGY REPORT: LOCAL TITLE: LR SURGICAL PATHOLOGY REPORT STANDARD TITLE: PATHOLOGY DIAGNOSTIC STUDY REPORT DATE OF NOTE: OCT 12, 2023@10:54:23 ENTRY DATE: OCT 12, 2023@10:54:23 AUTHOR: LESTER ANDERSON MD EXP COSIGNER: URGENCY: STATUS: COMPLETED $APHDR Reporting Lab: [facility] [CLIA# [id number]] [address] [place] [phone] - - - - - - - [...] - - - PATHOLOGY REPORT Accession No. [facility] [id number] - - - - - [...] - - - PATHOLOGY REPORT Accession No[facility] 24 174 - - - - - - - - - - - - - - - - - - - - - - - - - - - - - - - - - - - - - - - - Gross description: [facility] 24 [id number];A;1;Nisa SHEPHERD This is a [facility] case number SPATH [id number]. Received in [...] lateral and deep tissue margins. CPT codes [id number] /es/ LESTER ANDERSON MD Board Certified Dermatopathologist Signed Oct 12, 2023@10:54 Performing Laboratory: Surgical Pathology Report Performed By: [facility] [CLIA# [id number]] [address] [place] [phone] $FTR - - - - - - [...] - - - - - - - EBBO SHEPHERD STANDARD FORM 515 ID:[id number] SEX:M :1940 AGE: 83 LOC:CWM/NO/CVT/DERMATOLOGY/N P PCP: RUBY Long /thomas/ LESTER ANDERSON MD Board Certified Dermatopathologist Signed: 10/12/2023 10:54 LESTER ANDERSON MD [facility] Encounter Notes: All associated encounter notes This section contains the clinical notes associated to the Encounter. Date/Time Encounter Note(s) Provider Source November 01, 2023 11:54 AM PHYSICIAN BILLING ASSISTANT NOTE: LOCAL TITLE: PA NOTE STANDARD TITLE: PHYSICIAN BILLING ASSISTANT NOTE DATE OF NOTE: NOVEMBER 01, 2023@11:54 ENTRY DATE: NOVEMBER 01, 2023@11:54:12 AUTHOR: ABDIEL DONAHUE EXP COSIGNER: URGENCY: STATUS: COMPLETED SICK CALL VISIT CC: skin tear, right elbow bursitis HPI: 83-year-old male with below noted past medical history presents today for evaluation of right elbow pain and swelling. He states that he has had olecranon bursitis on the left side in the past and had to have the bursa removed surgically. He states that he has developed some swelling in the right elbow which is become painful and red. Denies any fever. He notes that it seemed to occur after he had lost his balance and sustained a skin tear when he grazed the dresser. This happened approximately 9 days ago. He denies any other injury. He has been self treating using Xeroform gauze dry sterile dressings over the area. He has no other injuries. REVIEW OF SYSTEMS: A 12 point review of systems is negative except as noted in the HPI. Active Medical Problems: Active Problem Elevated PSA R97.20 10/11/2023 ALLIE CUELLO Aortic Valve Disorder (SCT [id number]) 10/09/2023 TOÑO CAI Cerebrovascular disease I67.9 04/26/2023 ALLIE CUELLO Chronic recurrent major depressive 02/01/2023 [place]I [place] 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 09/19/2011 TOÑO CAI Microscopic Hematuria 599.72 08/04/2010 VESTA DE LA CRUZ MD Rosacea 695.3 07/30/2010 VESTA DE LA CRUZ MD Hypertension (SNOMED CT 18224048) I 04/26/2023 ALLIE CUELLO Spinal Stenosis * (ICD-9-CM 724.00) 02/05/2010 VESTA DE LA CRUZ MD Hyperlipidemia (SNOMED CT 42528561) 04/26/2023 ALLIE CUELLO Osteoarthritis * (ICD-9-CM 715.90) 07/02/2008 PAUL ACOSTA Lower Back Pain * (ICD-9-CM 724.2) 07/02/2008 PAUL ACOSTA Vertigo 780.4 11/28/2007 PAUL ACOSTA Diabetes mellitus type 2 (SNOMED CT 09/17/2022 ALLIE CUELLO Gastroesophageal Reflux Disorder 53 11/28/2007 PAUL ACOSTA Meds: Active Outpatient Medications (including Supplies): ATORVASTATIN CALCIUM 80MG TAB TAKE ONE-HALF TABLET BY ACTIVE MOUTH ONCE DAILY CALCIUM 200MG (CA CITRATE-950MG) TAB TAKE FOUR TABLETS BY ACTIVE MOUTH TWICE DAILY CITALOPRAM HYDROBROMIDE 20MG TAB TAKE ONE-HALF TABLET BY ACTIVE MOUTH ONCE DAILY FOR MOOD DENOSUMAB 60MG/ML INJ SYRINGE 1ML INJECT 60MG/1ML ACTIVE SUBCUTANEOUSLY ONE TIME FOR OSTEOPOROSIS HYDROXYCHLOROQUINE SULFATE 200MG TAB TAKE ONE TABLET BY ACTIVE MOUTH ONCE DAILY INSULIN,ASPART,HUMAN 100 UNIT/ML INJ INJECT 80 UNITS ACTIVE SUBCUTANEOUSLY EVERY DAY DIRECTED FOR USE WITH CONTINUOUS SUBCUTANEOUS INSULIN INFUSION DEVICE KETOCONAZOLE 2% CREAM APPLY A THIN LAYER TOPICALLY TWICE ACTIVE DAILY RASH APPLY TO AFFECTED AREAS ON FACE TWICE DAILY FOR 4 WEEKS, THEN NEEDED KETOCONAZOLE 2% SHAMPOO SHAMPOO SMALL AMOUNT TOPICALLY ACTIVE TWICE A WEEK NEEDED APPLY FOR 8 WEEKS, THEN NEEDED MULTIVIT/OPHTH AREDS2/LUTE/ZEAX CAP/TAB TAKE 1 CAPSULE BY ACTIVE MOUTH TWICE DAILY IN THE MORNING AND EVENING, WITH FOOD NEEDLE 18G 1IN USE 1 NEEDLE EVERY 7 DAYS FOR INJECTION ACTIVE NEEDLE 23G 1IN USE 1 NEEDLE EVERY 7 DAYS FOR INJECTION ACTIVE PREDNISONE 10MG TAB TAKE ONE TABLET BY MOUTH ONCE DAILY ACTIVE PREDNISONE 1MG TAB TAKE FOUR TABLETS BY MOUTH ONCE DAILY ACTIVE SYRINGE 1ML LUER LOCK TIP USE 1 SYRINGE EVERY 7 DAYS ACTIVE TAMSULOSIN HCL 0.4MG CAP TAKE ONE CAPSULE BY MOUTH AT ACTIVE BEDTIME FOR ENLARGED PROSTATE TOCILIZUMAB 162MG/0.9ML INJ SYR 0.9ML INJECT 162MG ACTIVE SUBCUTANEOUSLY EVERY 2 WEEKS Non-VA ACETAMINOPHEN TAB BY MOUTH ONCE DAILY NEEDED ACTIVE Non-VA AMLODIPINE BESYLATE 2.5MG TAB 2.5MG BY MOUTH ONCE ACTIVE DAILY Non-VA ASPIRIN 81MG EC TAB 81MG BY MOUTH ONCE DAILY ACTIVE Non-VA CHOLECALCIF 50MCG (D3-2,000UNIT) TAB 50MCG BY MOUTH ACTIVE ONCE DAILY Non-VA CYCLOBENZAPRINE HCL 10MG TAB 10MG BY MOUTH TWICE ACTIVE DAILY Non-VA DOCUSATE NA 100MG CAP 100MG BY MOUTH TWICE DAILY ACTIVE Non-VA FUROSEMIDE 20MG TAB 20MG BY MOUTH ONCE DAILY ACTIVE Non-VA LOSARTAN 100MG TAB 100MG BY MOUTH DAILY ACTIVE Non-VA OMEPRAZOLE 20MG EC CAP 20MG BY MOUTH EVERY DAY ACTIVE Non-VA PILOCARPINE HCL 5MG TAB 5MG BY MOUTH TWICE DAILY ACTIVE Allergies: PENICILLIN, ZOSYN, METFORMIN Date Vital Measurement Qualifiers 11/01/2023 11:33 Temp F (C) 98.3 (36.8) Pulse 76 Respir 16 BP 133/77 Wt lbs (kg)[BMI] 184 (83.46)[31*] Pain 2 POx (L/Min)(%) 96 At Rest FOCUSED EXAMINATION Well-developed, well-nourished male in no acute distress Right upper arm posteriolateral aspect is a 10 cm x 4.5 cm shallow wound with pink granulation, faint scattered heme, sloughing borders with slightly irregular superior tear without erythema, edema, excess warmth or tenderness. Inferiorly is the right olecranon bursa which is soft, enlarged, slightly warm, tender to palpation. [place] requests drainage. PROCEDURE NOTE: ASPIRATION PROCEDURE PREFORMED: Aspiration right olecranon bur DIAGNOSIS: Right olecranon bursitis 1) MEDICATION RECONCILIATION REMINDER DONE Yes (to include medications being used during invasive procedure) 2) INFORMED CONSENT: Obtained verbally, and through IMED.Yes The patient voiced an understanding and desire to proceed with the procedure. 3) VITAL SIGNS DOCUMENTED PRE-PROCEDURE, PAIN ASSESSMENT Yes: Temperature:98.3 F [36.8 C] (11/01/2023 11:33) Blood Pressure:133/77 (11/01/2023 11:33) Pulse:76 (11/01/2023 11:33) Respiration:16 (11/01/2023 11:33) Pain:2 (11/01/2023 11:33) PRE-PROCEDURE PAIN ASSESSMENT: Location: Elbow right Pain is acute Yes Pain is chronic No Check all that apply, the pain is: Dull Ache, Pressure Alleviating factors include:Prior Tx 4) Time-Out and Identification: TIME:October@11:45 PROVIDER NAME:Abdiel Donahue MS, PA-C STAFF NAME:Virgen Singletary RN IDENTIFICATION CONFIRMED BY ASSISTING STAFF MEMBER (X) [place] stating full name CORABEBO SILVA Nisa (X) stating full SS# [id number] (X) stating Feb [place] presents complaining of Right elbow pain. He appears in no acute distress. Above vital signs are noted. There is marked swelling of the Right olecranon bursa with fluctuance. There is mild redness, warmth and tenderness. No restriction to range of motion. Aspiration recommended. Risks and benefits explained and informed consent obtained. The area was cleansed with Betadine. Using a 18 -gauge needle 5 mL of clear serosang fluid was aspirated. Procedure was well-tolerated. No complications encountered. Elbow with DSD and Elías wrap with good CMS pre and post application. was discharged in improved condition with discharge instructions. POST PROCEDURE PAIN ASSEMENT COMPLETED Yes: Pain 1-10:0 Nursing wound care: See nurses note/wound order RTC as needed. ASSESSMENT/PLAN #1 laceration without Foreign Body of right upper Arm, Initial Encounter #2 olecranon Bursitis, right Elbow As above [place] able to verbalize understanding of plan of care and agrees. >> MEDICATIONS Reviewed and reconciled with [place] /thomas/ ABDIEL ARREOLA MS,PA-C PHYSICIAN BILLING ASSISTANT Signed: 11/01/2023 14:11 ABDIEL DONAHUE OR CNTL TRPramod [facility]
--- OUTSIDE RECORDS SUMMARY | 2024-06-14 13:19 | XMS_ITS | Encounter Summary ---
Author Name [facility] [place] Organization [facility] [place] Address [address] [place] [address] Care Team Providers Care Operator Specialist Communications Name Role Phone TOÑO CAI Primary Care [...] Relationship to Policy Wen [place] MED[place] SUPPLEMEN MASTER PSUED O MEDEX BRONZ E Mar 19, 2004 [id number] HOLLIE SHEPHERD PATIENT [place] SUPPLEMEN MASTER MEDEX BRONZ E Mar 19, 2004 [id number] [phone] HOLLIE SHEPHERD PATIENT [place] SUPPLEMEN MASTER MEDEX BRONZ E Mar 19, 2004 [id number] [phone] HOLLIE SHEPHERD PATIENT BCBS [facility] MEDICARE SUPPLEMEN MASTER PSUED O MEDEX BRONZ E Mar 19, 2004 [id number] [phone] HOLLIE SHEPHERD PATIENT MEDICARE (WNR) MEDICARE (M) PART B Mar 19, 2004 PART B [id number] HOLLIE SHEPHERD PATIENT MEDICARE (WNR) MEDICARE (M) PART B Mar 19, 2004 PART B [id number] CORAHOLLIE SILVA ALD PATIENT MEDICARE (WNR) MEDICARE (M) PART B Mar 19, 2004 PART B [id number] CORA,HOLLIE ALD PATIENT MEDICARE (WNR) MEDICARE (M) PART A Feb 17, 2003 PART A [id number] [phone] CORA,HOLLIE ALD PATIENT MEDICARE (WNR) MEDICARE (M) PART A Feb 17, 2003 PART A [id number] CORAHOLLIE SILVA ALD PATIENT MEDICARE (WNR) MEDICARE (M) PART A Feb 17, 2003 PART A [id number] CORAHOLLIE SILVA ALD PATIENT MEDICARE (WNR) MEDICARE (M) PART A Feb 17, 2003 PART A [id number] CORAHOLLIE SILVA ALD PATIENT MEDICARE (WNR) MEDICARE (M) PART B Feb 17, 2003 PART B [id number] [phone] CORAHOLLIE SILVA ALD PATIENT MEDICARE (WNR) MEDICARE (M) PART A Feb 17, 2003 PART A [id number] HOLLIE SHEPHERD ALD PATIENT MEDICARE (WNR) MEDICARE (M) PART B Feb 17, 2003 PART B [id number] HOLLIE SHEPHERD PATIENT Selected Encounter This section includes the information on record at [place] for the Encounter. Date/Time Encounter Type Encounter Description Reason Pro vider Source IHE Encounter Template Text not used by AL Advance Directives: All historical and current Section [...] Jun 02, 2023 ADVANCE DIRECTIVE JENNIFER [facility]OS [facility]
--- OUTSIDE RECORDS SUMMARY | 2024-06-14 13:19 | XMS_ITS | Encounter Summary ---
Author Name [facility] [place] Organization [facility] [place] Address [address] [place] [address] Care Team Providers Care Multifocal Lens Inspector Name Role Phone TOÑO CAI Primary [...] Relationship to Policy Wen [place] SUPPLEMEN MASTER PSUED O MEDEX BRONZ E Mar 19, 2004 [id number] HOLLIE SHEPHERD PATIENT [place] SUPPLEMEN MASTER MEDEX BRONZ E Mar 19, 2004 [id number] HOLLIE SHEPHERD [place] SUPPLEMEN MASTER MEDEX BRONZ E Mar 19, 2004 [id number] [phone] HOLLIE SHEPHERD PATIENT BCBS [facility] MEDICARE SUPPLEMEN MASTER PSUED O MEDEX BRONZ E Mar 19, 2004 [id number] [phone] HOLLIE SHEPHERD PATIENT MEDICARE (WNR) MEDICARE (M) PART B Mar 19, 2004 PART B [id number] HOLLIE SHEPHERD PATIENT MEDICARE (WNR) MEDICARE (M) PART B Mar 19, 2004 PART B [id number] HOLLIE SHEPHERD ALD PATIENT MEDICARE (WNR) MEDICARE (M) PART B Mar 19, 2004 PART B [id number] [phone] HOLLIE SHEPHERD ALD PATIENT MEDICARE (WNR) MEDICARE (M) PART A Feb 17, 2003 PART A [id number] HOLLIE SHEPHERD ALD PATIENT MEDICARE (WNR) MEDICARE (M) PART A Feb 17, 2003 PART A [id number] HOLLIE SHEPHERD ALD PATIENT MEDICARE (WNR) MEDICARE (M) PART A Feb 17, 2003 PART A [id number] [phone] HOLLIE SHEPHERD ALD PATIENT MEDICARE (WNR) MEDICARE (M) PART A Feb 17, 2003 PART A [id number] HOLLIE SHEPHERD PATIENT MEDICARE (WNR) MEDICARE (M) PART B Feb 17, 2003 PART B [id number] HOLLIE SHEPHERD PATIENT MEDICARE (WNR) MEDICARE (M) PART A Feb 17, 2003 PART A [id number] HOLLIE SHEPHERD PATIENT MEDICARE (WNR) MEDICARE (M) PART B Feb 17, 2003 PART B [id number] HOLLIE SHEPHERD PATIENT Selected Encounter This section includes the information on record at [place] for the Encounter. Date/Time Encounter Type Encounter Description Reason Pro vider Source Oct 03, 2023 12:00 AM Outpatient Encounter EVENT (HISTORICAL) IHE Encounter Template Text not used by [place] Plan of Treatment: Future Appointments (+ 6 months) and Future Tests (+/- 45 days) The Plan of Treatment section includes future care activities for the patient from all [place] treatmentfacilities. This section includes future appointments and [...] - MEDICINE [facility] [place] [facility] Oct 10, 2023 02:30 PM AMBULATORY - MEDICINE [facility] [place] [facility] October 18, 2023 01:00 PM AMBULATORY - MEDICINE [facility] [place] [facility] November 01, 2023 10:30 AM AM[place]ULATORY [place] [facility] November 01, 2023 10:30 AM AMBULATORY - PS[facility]CHIATRY [facility] [place] [facility] November 01, 2023 11:15 AM AMBULATORY - MEDICINE [facility] [place] [facility] November 01, 2023 01:30 PM AMBULATORY - MEDICINE [facility] [place] [facility] November 02, 2023 11:15 AM AMBULATORY - MEDICINE [facility] [place] [facility] November 02, 2023 11:30 AM AMBULATORY - MEDICINE [facility] [place] [facility] November 06, 2023 02:50 PM AMBULATORY - MEDICINE [facility] [place] [facility] Nov 22, 2023 10:00 AM AMBULATORY - MEDICINE [facility] [place] [facility] Nov 27, 2023 02:00 PM AMBULATORY - MEDICINE [facility] [place] [facility] Feb 12, 2024 10:00 AM AMBULATORY - MEDICINE [facility] [place] [facility] Feb 28, 2024 01:00 PM AMBULATORY [place] [facility] Feb 28, 2024 01:00 PM AMBULATORY - PSYCHIATRY [facility] [place] [facility] Mar 25, 2024 10:00 AM AMBULATORY - MEDICINE [facility] [place] [facility] Mar 25, 2024 10:30 AM AMBULATORY - MEDICINE [facility] [place] [facility] Apr 02, 2024 02:00 PM AMBULATORY - MEDICINE [facility] [place] [facility] Active, Pending, and Scheduled Orders This section includes a listing of several types of active, pending, and scheduled orders, including clinic medications orders, diagnostic test orders, procedure orders and consult orders; where the start date of the order is 45 days before the date of the Encounter or 45 days after the date of theEncounter. The data comes from all [place] treatment facilities. Test Date/Time Test Type Test Details Facility Name Oct 10, 2023 12:00 AM Laboratory - Chemi stry Order SURGICAL PATH ORDER SURG PATH SPEC. UNKNOWN SP [facility] Lab Results: +/- 30 days [...] Range Comment Oct 11, 2023 01:27 PM [facility] MICROALBUMIN CREATININE RATIO PANEL Specimen Type: URINE No comment entered. Ordering Provider: ALLIE CUELLO Report Released Date/Time: Jul 26, 2023 10:12 AM Reporting Lab: [facility] [address] [address] Performing Lab: [facility] [address] [address] MICROALBUMIN/C REATININE RATIO 7.1 mg/g 0-29.9 MICROALBUMIN,Q UANTITATIVE 0.8 mg/dL RR UNAVAIL CREATININE URINE 113.29 mg/dL Oct 10, 2023 03:42 PM [facility] LIVER FUNCTION Specimen Type: SERUM Comment: *BASIC METABOLIC PANEL (fasting) Not Performed: Oct 10, 2023@15:51 b *PRODUCT MARKETING ENGINEER Reason: dup *LIPID PANEL FASTING Not Performed: Oct 10, 2023@15:51 by [id number] *PRODUCT MARKETING ENGINEER Reason: dup Ordering Provider: JUAN LUIS CAI Report Released Date/Time: Jun 05, 2023 11:22 AM Reporting Lab: [facility] [address] [address] Performing Lab: [address] [address] PROTEIN,TOTAL 6.0 g/dL 6.0-8.3 ALBUMIN 4.2 g/dL 3.5-5.0 ALKALINE PHOSPHATASE 89 U/L 40-150 AST 29 U/L 5-34 ALT 29 U/L BILIRUBIN, TOTAL 1.3 mg/dL H 0.2-1.2 BILIRUBIN, DIRECT 0.5 mg/dL 0-0.5 Oct 10, 2023 03:41 PM [facility] TESTOSTERONE, TOTAL (WHV) Specimen Type: SERUM No comment entered. Ordering Provider: ALLIE CUELLO Report Released Date/Time: Jul 26, 2023 10:12 AM Reporting Lab: [address] [address] Performing Lab: [address] [address] TESTOSTERONE, TOTAL (V) 755.20 ng/dL 220.00-892 .00 Oct 10, 2023 03:41 PM [facility] PSA Specimen Type: SERUM No comment entered. Ordering Provider: ALLIE CUELLO Report Released Date/Time: Jul 26, 2023 10:12 AM Reporting Lab: [address] [address] Performing Lab: [address] [address] PSA 4.74 ng/mL H 0.00-4.00 Oct 10, 2023 03:41 PM [facility] HEMOGLOBIN A1C PANEL Specimen Type: BLOOD [...] Jul 26, 2023 10:12 AM Reporting Lab: [address] [address] Performing Lab: [address] [address] HEMOGLOBIN A1C 6.7 H 4.0-5.6 Oct 10, 2023 03:41 PM [facility] LIPID PANEL FASTING Specimen Type: SERUM No comment entered. Ordering Provider: ALLIE CUELLO Report Released Date/Time: Jul 26, 2023 10:12 AM Reporting [facility]: [facility] [address] Performing Lab: [facility] [address] [address] CHOLESTEROL 96 mg/dL TRIGLYCERIDE 101 mg/dL 0-150 LDL calculated 44 mg/dL 0-129 CHOL/HDL 3.0 HDL CHOLESTEROL 32 mg/dL L 40-60 Oct 10, 2023 03:41 PM [facility] CALCIUM Specimen Type: SERUM No comment entered. Ordering Provider: ALLIE CUELLO Report Released Date/Time: Oct 10, 2023 07:35 AM Reporting Lab: [address] [address] Performing Lab: [address] [address] CALCIUM 9.1 mg/dL 8.5-10.2 Oct 10, 2023 03:41 PM [facility] CBC Specimen Type: BLOOD No comment entered. Ordering Provider: ALLIE CUELLO Report Released Date/Time: Jul 26, 2023 10:12 AM Reporting Lab: [address] [address] Performing Lab: [address] [address] WBC 5.42 10*3/uL 4.50-11.00 RBC 4.87 10*6/uL 4.23-5.66 HGB 12.5 g/dL L 12.8-17 HCT 39.4 39.2-50.4 MCV 80.9 fL L 82-99 MCHC 31.7 g/dL 30.8-35.1 PLT 123 10*3/uL L 140-360 RDW-CV 14.7 12.0-16.0 MCH 25.7 pg L 26.2-32.6 Oct 10, 2023 03:41 PM [facility] VITAMIN D (25-OH) Specimen Type: SERUM No comment entered. Ordering Provider: ALLIE CUELLO Report Released Date/Time: Oct 10, 2023 07:35 AM Reporting Lab: [facility] [address] [address] Performing Lab: [address] [address] VITAMIN D (25-OH) 41 ng/mL 20-50 Oct 10, 2023 03:41 PM [facility] BASIC METABOLIC PANEL (fasting) Specimen Type: SERUM No comment entered. Ordering Provider: ALLIE CUELLO Report Released Date/Time: Jul 26, 2023 10:12 AM Reporting Lab: [address] [address] Performing Lab: [address] [address] UREA NITROGEN 22 mg/dL 7-25 GLUCOSE 172 [...] took place. Date/Time Current Smoking Status Comment [facility] Jun 05, 2023 11:00 AM VA-TOBACCO FORMER USER [facility] Tobacco Use History This section includes a history of the smoking, or tobacco-related health factors, that were collected on or before the date of the Encounter. The data comes from the [place] facility where the Encounter took place. Date/Time Smoking Status/Tobac co Use Comment Facility Jun 05, 2023 11:00 AM MT-TOBACCO QUIT 15 YRS OR MORE [facility] Jun 06, 2022 01:00 PM VA-TOBACCO FORMER USER [facility] [place] [facility] Jun 06, 2022 01:00 PM VA-TOBACCO QUIT 15 YRS OR MORE [facility] [place] [facility] Jun 30, 2021 02:37 PM VA-TOBACCO FORMER USER [place] [facility] [place] [facility] Jun 30, 2021 02:37 PM VA-TOBACCO QUIT 5 TO < 15 YRS [facility] [place] [facility] May 22, 2020 03:30 PM VA-TOBACCO NEVER USED [facility] [place] [facility] May 08, 2018 02:03 PM VA-TOBACCO FORMER USER [facility] [place] [facility] May 08, 2018 02:03 PM VA-TOBACCO QUIT 15 YRS OR MORE [facility] [place] [facility] November 10, 2017 02:33 PM QUIT TOBACCO USE > 7 YEARS AGO [facility] [place] [facility] October 21, 2016 01:55 PM QUIT TOBACCO USE > 7 YEARS AGO [facility] [place] [facility] Sep 18, 2015 11:24 AM QUIT TOBACCO USE > 7 YEARS AGO stopped 50 years ago [facility] [place] [facility] May 19, 2005 08:01 AM HISTORY OF SMOKING [facility] [place] [facility] May 31, 2004 01:02 PM HISTORY OF SMOKING [facility] [place] [facility] Jun 04, 2003 07:57 AM HISTORY OF SMOKING [facility] [place] [facility] Jun 03, 2002 01:11 PM HISTORY OF SMOKING [facility] [place] [facility] Jun 03, 2002 01:11 PM QUIT TOBACCO USE > 7 YE[facility] AGO [facility] Advance Directives: All historical and current [...] Jun 02, 2023 ADVANCE DIRECTIVE JENNIFER QUIROS [facility] Pathology Reports: +/- 30 days of [...] the Encounter. The data comes from all [place] treatment facilities. Date/Time Pathology Report Provider Source Oct 12, 2023 10:54 AM LR SURGICAL PATHOLOGY REPORT: LOCAL TITLE: LR SURGICAL PATHOLOGY REPORT STANDARD TITLE: PATHOLOGY DIAGNOSTIC STUDY REPORT DATE OF NOTE: OCT 12, 2023@10:54:23 ENTRY DATE: OCT 12, 2023@10:54:23 AUTHOR: LESTER ANDERSON MD EXP COSIGNER: URGENCY: STATUS: COMPLETED $APHDR Reporting Lab: [place] [facility] [CLIA# [id number]] [address] [place] [id number] - - - - - - - [...] - - - - PREOPERATIVE DIAGNOSIS: SP 24 174 SPECIMEN A: R/O SCC SPECIMEN B: [...] - - - PATHOLOGY REPORT Accession No. [facility] 24 174 - - - - - - - - - - - - - - - - - - - - - - - - - - - - - - - - - - - - - - - - Gross description: [facility] 24 3052;A;1;Nisa SHEPHERD This is a [facility] case number [facility] 24 [id number]. Received in formalin is a [...] lateral and deep tissue margins. CPT codes 03832b1 /thomas/ LESTER ANDERSON MD Board Certified Dermatopathologist Signed Oct 12, 2023@10:54 Performing Laboratory: Surgical Pathology Report Performed By: [facility] [CLIA# [id number]] [address] [place] [id number] $FTR - - - - - - [...] - - BEBO SHEPHERD STANDARD FORM 515 ID:[id number] SEX:M :1940 AGE: 83 LOC:CWM/NO/CVT/DERMATOLOGY/N P PCP: RUBY Long /thomas/ LESTER ANDERSON MD Board Certified Dermatopathologist Signed: 10/12/2023 10:54 LESTER ANDERSON MD [facility] Encounter Notes: All associated encounter notes This section contains the clinical notes associated to the Encounter. Date/Time Encounter Note(s) Provider Source Oct 03, 2023 12:00 AM NONVA NOTE: LOCAL TITLE: NON-VA HOSPITALIZATIONS/ER STANDARD TITLE: NONVA NOTE DATE OF NOTE: OCT 03, 2023 ENTRY DATE: OCT 11, 2023@16:19:35 AUTHOR: ZOYA IBARRA EXP COSIGNER: URGENCY: STATUS: COMPLETED VistA Imaging - Scanned Document SCANNED DOCUMENT SIGNATURE NOT REQUIRED Electronically Filed: 10/11/2023 by: ZOYA IBARRA LICENSED PRACTICAL NURSE ZOYA IBARRA [facility]
--- OUTSIDE RECORDS SUMMARY | 2024-06-14 13:19 | XMS_ITS | Encounter Summary ---
Author Name [facility] [facility] [place] [facility] [place] Address [address] [place] [id number] Care Team Providers Care Code Number Stamper Name Role Phone TOÑO CAI Primary Care [...] O MEDEX BRONZ E Mar 19, 2004 [id number] HOLLIE SHEPHERD PATIENT BCBS MD MEDICARE SUPPLEMEN MASTER MEDEX BRONZ E Mar 19, 2004 [id number] HOLLIE SHEPHERD PATIENT BCBS MD MEDICARE SUPPLEMEN MASTER MEDEX BRONZ E Mar 19, 2004 [id number] [phone] HOLLIE SHEPHERD PATIENT BCBS [facility] MEDICARE SUPPLEMEN MASTER PSUED O MEDEX BRONZ E Mar 19, 2004 [id number] [phone] HOLLIE SHEPHERD PATIENT MEDICARE (WNR) MEDICARE (M) PART B Mar 19, 2004 PART B [id number] HOLLIE SHEPHERD PATIENT MEDICARE (WNR) MEDICARE (M) PART B Mar 19, 2004 PART B [id number] HOLLIE SHEPHERD ALD PATIENT MEDICARE (WNR) MEDICARE (M) PART B Mar 19, 2004 PART B [id number] [phone] HOLLIE SHEPHERD ALD PATIENT MEDICARE (WNR) MEDICARE (M) PART A Feb 17, 2003 PART A [id number] HOLLIE SHEPHERD ALD PATIENT MEDICARE (WNR) MEDICARE (M) PART A Feb 17, 2003 PART A [id number] [phone] HOLLIE SHEPHERD ALD PATIENT MEDICARE (WNR) MEDICARE (M) PART A Feb 17, 2003 PART A [id number] HOLLIE SHEPHERD ALD PATIENT MEDICARE (WNR) MEDICARE (M) PART A Feb 17, 2003 PART A [id number] HOLLIE SHEPHERD PATIENT MEDICARE (WNR) MEDICARE (M) PART B Feb 17, 2003 PART B [id number] HOLLIE SHEPHERD PATIENT MEDICARE (WNR) MEDICARE (M) PART A Feb 17, 2003 PART A [id number] [phone] HOLLIE SHEPHERD PATIENT MEDICARE (WNR) MEDICARE (M) PART B Feb 17, 2003 PART B [id number] [phone] HOLLIE SHEPHERD PATIENT Selected Encounter This section includes the information on record at [place] for the Encounter. Date/Time Encounter Type Encounter Description Reason Provider Source Oct 12, 2023 10:54 AM Outpatient Encounter EVENT (HISTORICAL) LESTER ANDERSON MD E Encounter Template Text not used by [place] Plan of Treatment: Future Appointments (+ 6 months) and Future Tests (+/- 45 days) The Plan of Treatment section includes future care activities for the patient from all [place] treatmentfacilities. This section includes future appointments and future orders which are active, pending or scheduled. Future Appointments This section includes appointments that were scheduled to occur 6 months from the date of the Encounter, up to a maximum of 20 appointments. The data comes from all [place] treatment facilities. Appointment Date/Time Appointment Type Appointme nt Facility Name October 18, 2023 01:00 PM AMBULATORY [facility]IC[facility] [place] [facility] November 01, 2023 10:30 AM AMB[facility] [place] [facility] November 01, 2023 10:30 AM AMBULATORY - PS[facility]CHIATRY [facility] [place] [facility] November 01, 2023 11:15 AM AMBULATORY - MEDICINE [facility] [place] [facility] November 01, 2023 01:30 PM AMBULATORY - MEDICINE [facility] [place] [facility] November 02, 2023 11:15 AM AMBULATORY - MEDICINE [facility] [place] [facility] November 02, 2023 11:30 AM AMBULATORY - MEDICINE [facility] [place] [facility] November 06, 2023 02:50 PM AMBULATORY - MEDICINE [facility] [place] [facility] Nov 22, 2023 10:00 AM AMBULATORY - MEDICINE [facility] [place] [facility] Nov 27, 2023 02:00 PM AMBULATORY - MEDICINE [facility] [place] [facility] Feb 12, 2024 10:00 AM AMBULATORY - MEDICINE [facility] [place] [facility] Feb 28, 2024 01:00 PM [facility] [place] [facility] Feb 28, 2024 01:00 PM AMBULATORY - PS[facility]CHIATRY [facility] [place] [facility] Mar 25, 2024 10:00 AM AMBULATORY - MEDICINE [facility] [place] [facility] Mar 25, 2024 10:30 AM AMBULATORY - MEDICINE [facility] [place] [facility] Apr 02, 2024 02:00 PM AMBULATORY - MEDICINE [facility] [place] [facility] Apr 04, 2024 02:00 PM AMBULATORY - MEDICINE [facility] [place] [facility] Apr 08, 2024 01:00 PM AMBULATORY - REHAB MEDICIN E [facility] [place] [facility] Apr 12, 2024 09:45 AM AMBULATORY - MEDICINE [facility] [place] [facility] Active, Pending, and Scheduled Orders This section includes a listing of several types of active, pending, and scheduled orders, including clinic medications orders, diagnostic test orders, procedure orders and consult orders; where the start date of the order is 45 days before the date of the Encounter or 45 days after the date of theEncounter. The data comes from all [place] treatment facilities. Test Date/Time Test Type Test Details Facility Name Oct 10, 2023 12:00 AM Laboratory - Chemi stry Order SURGICAL PATH ORDER SURG PATH SPEC. UNKNOWN SP [facility] Lab Results: +/- 30 days of the encounter This section includes the Chemistry and Hematology Lab Results on record with [place] for the patient. Radiology Reports and Pathology Reports are provided separately, in subsequent sections. Lab Results This section contains the Chemistry/Hematology Results that were resulted 30 days before or 30 daysafter the date of the Encounter. Date/Time Source Result Type Result - Unit Interpretation Reference Range Comment Oct 11, 2023 01:27 PM [facility] MICROALBUMIN CREATININE RATIO PANEL Specimen Type: URINE No comment entered. Ordering Provider: ALLIE CUELLO Report Released Date/Time: Jul 26, 2023 10:12 AM Reporting Lab: [facility] [address] [facility] [address] Performing Lab: [facility] [address] [facility] [address] MICROALBUMIN/C REATININE RATIO 7.1 mg/g 0-29.9 MICROALBUMIN,Q UANTITATIVE 0.8 mg/dL RR UNAVAIL CREATININE URINE 113.29 mg/dL Oct 10, 2023 03:42 PM [facility] LIVER FUNCTION Specimen Type: SERUM Comment: *BASIC METABOLIC PANEL (fasting) Not Performed: Oct 10, 2023@15:51 b *[employer] Reason: dup *LIPID PANEL FASTING Not Performed: Oct 10, 2023@15:51 by [id number] *[employer] Reason: dup Ordering Provider: JUAN LUIS CAI Report Released Date/Time: Jun 05, 2023 11:22 AM Reporting Lab: [facility] [address] [facility] [address] Performing Lab: [facility] [address] [facility] [address] PROTEIN,TOTAL 6.0 g/dL 6.0-8.3 ALBUMIN 4.2 g/dL 3.5-5.0 ALKALINE PHOSPHATASE 89 U/L 40-150 AST 29 U/L 5-34 ALT 29 U/L BILIRUBIN, TOTAL 1.3 mg/dL H 0.2-1.2 BILIRUBIN, DIRECT 0.5 mg/dL 0-0.5 Oct 10, 2023 03:41 PM [facility] TESTOSTERONE, TOTAL ([facility]) Specimen Type: SERUM No comment entered. Ordering Provider: ALLIE CUELLO Report Released Date/Time: Jul 26, 2023 10:12 AM Reporting Lab: [facility] [address] [facility] [address] Performing Lab: [address] [address] TESTOSTERONE, TOTAL ([facility]) 755.20 ng/dL 220.00-892 .00 Oct 10, 2023 03:41 PM [facility] PSA Specimen Type: SERUM No comment entered. Ordering Provider: ALLIE CUELLO Report Released Date/Time: Jul 26, 2023 10:12 AM Reporting Lab: [address] [address] Performing Lab: [address] [address] PSA 4.74 ng/mL H 0.00-4.00 Oct 10, 2023 03:41 PM [facility] HEMOGLOBIN A1C PANEL Specimen Type: BLOOD [...] Jul 26, 2023 10:12 AM Reporting Lab: [address] [address] Performing Lab: [address] [address] HEMOGLOBIN A1C 6.7 H 4.0-5.6 Oct 10, 2023 03:41 PM [facility] LIPID PANEL FASTING Specimen Type: SERUM No comment entered. Ordering Provider: ALLIE CUELLO Report Released Date/Time: Jul 26, 2023 10:12 AM Reporting Lab: [facility] [address] [facility] [address] Performing Lab: [facility] [address] [address] CHOLESTEROL 96 mg/dL TRIGLYCERIDE 101 mg/dL 0-150 LDL calculated 44 mg/dL 0-129 CHOL/HDL 3.0 HDL CHOLESTEROL 32 mg/dL L 40-60 Oct 10, 2023 03:41 PM [facility] CALCIUM Specimen Type: SERUM No comment entered. Ordering Provider: ALLIE CUELLO Report Released Date/Time: Oct 10, 2023 07:35 AM Reporting Lab: [address] [address] Performing Lab: [facility] [address] [address] CALCIUM 9.1 mg/dL 8.5-10.2 Oct 10, 2023 03:41 PM [facility] CBC Specimen Type: BLOOD No comment entered. Ordering Provider: ALLIE CUELLO Report Released Date/Time: Jul 26, 2023 10:12 AM Reporting Lab: [address] [address] Performing Lab: [facility] [address] WBC 5.42 10*3/uL 4.50-11.00 RBC 4.87 10*6/uL 4.23-5.66 HGB 12.5 g/dL L 12.8-17 HCT 39.4 39.2-50.4 MCV 80.9 fL L 82-99 MCHC 31.7 g/dL 30.8-35.1 PLT 123 10*3/uL L 140-360 RDW-CV 14.7 12.0-16.0 MCH 25.7 pg L 26.2-32.6 Oct 10, 2023 03:41 PM [facility] VITAMIN D (25-OH) Specimen Type: SERUM No comment entered. Ordering Provider: ALLIE CUELLO Report Released Date/Time: Oct 10, 2023 07:35 AM Reporting Lab: [facility] [address] [facility] [address] Performing Lab: [address] [address] VITAMIN D (25-OH) 41 ng/mL 20-50 Oct 10, 2023 03:41 PM [facility] BASIC METABOLIC PANEL (fasting) Specimen Type: SERUM No comment entered. Ordering Provider: ALLIE CUELLO Report Released Date/Time: Jul 26, 2023 10:12 AM Reporting Lab: [address] [address] Performing Lab: [address] [address] UREA NITROGEN 22 mg/dL 7-25 GLUCOSE 172 [...] and tobacco- related health factors from the [place] facility where the Encounter took place. Current Smoking Status This section includes the most current smoking, or tobacco-related health factor, from the [place] facility where the Encounter took place. Date/Time Current Smoking Status Comment [facility] it Jun 05, 2023 11:00 AM VA-TOBACCO FORMER USER [facility] Tobacco Use History This section includes a history of the smoking, or tobacco-related health factors, that were collected on or before the date of the Encounter. The data comes from the [place] facility where the Encounter took place. Date/Time Smoking Status/Tobac co Use Comment Facility Jun 05, 2023 11:00 AM VA-TOBACCO QUIT 15 YRS OR MORE [facility] [place] [facility] Jun 06, 2022 01:00 PM VA-TOBACCO FORMER USER [facility] [place] [facility] Jun 06, 2022 01:00 PM VA-TOBACCO QUIT 15 YRS OR MORE [facility] [place] [facility] Jun 30, 2021 02:37 PM VA-TOBACCO FORMER USER [facility] [place] [facility] Jun 30, 2021 02:37 PM VA-TOBACCO QUIT 5 TO < 15 YRS [place] [facility] [place] [facility] May 22, 2020 03:30 PM VA-TOBACCO NEVER USED [place] [facility] [place] [facility] May 08, 2018 02:03 PM VA-TOBACCO FORMER USER [facility] [place] [facility] May 08, 2018 02:03 PM VA-TOBACCO QUIT 15 YRS OR MORE [facility] [place] [facility] November 10, 2017 02:33 PM QUIT TOBACCO USE > 7 YEARS AGO [facility] [place] [facility] October 21, 2016 01:55 PM QUIT TOBACCO USE > 7 YEARS AGO [facility] [place] [facility] Sep 18, 2015 11:24 AM QUIT TOBACCO USE > 7 YEARS AGO stopped 50 years ago [facility] [place] [facility] May 19, 2005 08:01 AM HISTORY OF SMOKING [facility] [place] [facility] May 31, 2004 01:02 PM HISTORY OF SMOKING [facility] [place] [facility] Jun 04, 2003 07:57 AM HISTORY OF SMOKING [facility] [place] [facility] Jun 03, 2002 01:11 PM HISTORY OF SMOKING [facility] [place] [facility] Jun 03, 2002 01:11 PM QUIT TOBACCO USE > 7 YEARS AGO [place] [facility] [place] [facility] Advance Directives: All historical and current Section Date Range: From patient's date of to the date document was created. This section includes ALL of a patient's completed or amended [place] Advance and Rescinded Directives. The entries below indicate that a directive exists for the patient, but an actual copy is not included with this document. The data comes from all [place] facilities. Date Advance Directives Provider Source Jun 02, 2023 ADVANCE DIRECTIVE JENNIFER QUIROS [place] [facility] Pathology Reports: +/- 30 days of [...] the Encounter. The data comes from all [place] treatment facilities. Date/Time Pathology Report Provider Source Oct 12, 2023 10:54 AM LR SURGICAL PATHOLOGY REPORT: LOCAL TITLE: LR SURGICAL PATHOLOGY REPORT STANDARD TITLE: PATHOLOGY DIAGNOSTIC STUDY REPORT DATE OF NOTE: OCT 12, 2023@10:54:23 ENTRY DATE: OCT 12, 2023@10:54:23 AUTHOR: LESTER ANDERSON MD EXP COSIGNER: URGENCY: STATUS: COMPLETED $APHDR Reporting Lab: [place] [facility] [CLIA# [id number]] [address] [place] [phone] - - - - - - - [...] - - - PATHOLOGY REPORT Accession No. [facility] 24 [id number] - - - - - - - - - - - - - - - - - - - - - - - - - - - - - - - - - - - - - - - - Gross description: [facility] 3827;A;1;Nisa SHEPHERD This is a [facility] case number [facility] [id number]. Received in formalin is [...] lateral and deep tissue margins. CPT codes [id number] /thomas/ LESTER ANDERSON MD Board Certified Dermatopathologist Signed Oct 12, 2023@10:54 Performing Laboratory: Surgical Pathology Report Performed By: [facility] [CLIA# [id number]] [address] [place] [phone] $FTR - - - - - - [...] - - BEBO SHEPHERD STANDARD FORM 515 ID:[id number] SEX:M :1940 AGE: 83 LOC:CWM/NO/CVT/DERMATOLOGY/N P PCP: RUBY Long /thomas/ LESTER ANDERSON MD Board Certified Dermatopathologist Signed: 10/12/2023 10:54 LESTER ANDERSON MD [facility] Encounter Notes: All associated encounter notes This section contains the clinical notes associated to the Encounter. Date/Time Encounter Note(s) Provider Source Oct 12, 2023 10:54 AM PATHOLOGY DIAGNOSTIC STUDY REPORT: LOCAL TITLE: SURGICAL PATHOLOGY REPORT STANDARD TITLE: PATHOLOGY DIAGNOSTIC STUDY REPORT DATE OF NOTE: OCT 12, 2023@10:54:23 ENTRY DATE: OCT 12, 2023@10:54:23 AUTHOR: LESTER ANDERSON MD EXP COSIGNER: URGENCY: STATUS: COMPLETED $APHDR Reporting [facility] [CLIA# [id number]] [address] [place] [phone] - - - - - - - [...] - - - PATHOLOGY REPORT Accession No. [facility] - - - - - - - [...] - - - PATHOLOGY REPORT Accession No. [facility] 24 [id number] - - - - - - - - - - - - - - - - - - - - - - - - - - - - - - - - - - - - - - - - Gross description: [facility] 8698;A;1;Nisa SHEPHERD This is a [facility] case number [facility] [id number]. Received in formalin is [...] lateral and deep tissue margins. CPT codes [id number] /es/ LESTER ANDERSON MD Board Certified Dermatopathologist Signed Oct 12, 2023@10:54 Performing Laboratory: Surgical Pathology Report Performed By: [facility] [CLIA# [id number]] [address] [place] [phone] $FTR - - - - - - [...] - - BEBO SHEPHERD STANDARD FORM 515 ID:[id number] SEX:M :1940 AGE: 83 LOC:ASHLEY/PAULA/CVT/DERMATOLOGY/N P PCP: RUBY Long /thomas/ LESTER ANDERSON MD Board Certified Dermatopathologist Signed: 10/12/2023 10:54 LESTER ANDERSON MD [place] [facility]
--- OUTSIDE RECORDS SUMMARY | 2024-06-14 13:19 | XMS_ITS | Encounter Summary ---
Author Name [facility] [place] Organization [facility] [place] [place] Address [address] [place] [id number] Care Team Providers [facility] Name Role Phone TOÑO CAI Primary Care [...] Relationship to Policy Wen LUKE BCBS OF [place] MEDICARE SUPPLEMEN MASTER PSUED O MEDEX BRONZ E Mar 19, 2004 [id number] [phone] HOLLIE SHEPHERD PATIENT [place] SUPPLEMEN MASTER MEDEX BRONZ E Mar 19, 2004 [id number] [phone] HOLLIE [place] SUPPLEMEN MASTER MEDEX BRONZ E Mar 19, 2004 [id number] [phone] HOLLIE SHEPHERD PATIENT BCBS [facility] MEDICARE SUPPLEMEN MASTER PSUED O MEDEX BRONZ E Mar 19, 2004 [id number] HOLLIE SHEPHERD PATIENT MEDICARE (WNR) MEDICARE (M) PART B Mar 19, 2004 PART B [id number] HOLLIE SHEPHERD PATIENT MEDICARE (WNR) MEDICARE (M) PART B Mar 19, 2004 PART B [id number] [phone] CORAHOLLIE SILVA ALD PATIENT MEDICARE (WNR) MEDICARE (M) PART B Mar 19, 2004 PART B [id number] [phone] CORAHOLLIE SILVA ALD PATIENT MEDICARE (WNR) MEDICARE () PART A Feb 17, 2003 PART A [id number] [phone] CORAHOLLIE SILVA ALD PATIENT MEDICARE (WNR) MEDICARE () PART A Feb 17, 2003 PART A [id number] [phone] CORAHOLLIE SILVA ALD PATIENT MEDICARE (WNR) MEDICARE (M) PART A Feb 17, 2003 PART A [id number] HOLLIE SHEPHERD PATIENT MEDICARE (WNR) MEDICARE () PART A Feb 17, 2003 PART A [id number] CORAHOLLIE SILVA PATIENT MEDICARE (WNR) MEDICARE () PART B Feb 17, 2003 PART B [id number] [phone] HOLLIE SHEPHERD PATIENT MEDICARE (WNR) MEDICARE () PART A Feb 17, 2003 PART A [id number] HOLLIE SHEPHERD PATIENT MEDICARE (WNR) MEDICARE () PART B Feb 17, 2003 PART B [id number] HOLLIE SHEPHERD PATIENT Selected Encounter This section includes the information on record at [place] for the Encounter. Date/Time Encounter Type Encounter Description Reason Provider Source November 02, 2023 11:30 AM NURSING ASSESSMENT/EVAL [facility] PRIMARY CARE/MEDICINE ICD-10-CM R22.30 Localized swelling, mass and lump, unspecified upper limb DANNIE KENDALL E Encounter Template Text not used by [place] Assessments - Encounter Diagnoses This section includes the primary and secondary diagnoses documented for the Encounter. Date/Time Primary/Secondary Diagnosis Diagnosis Name Provider Source November 02, 2023 11:41 AM PRIMARY Localized swelling, mass and lump, unspecified upper limb DANNIE KENDALL [facility] Plan of Treatment: Future Appointments (+ 6 months) and Future Tests (+/- 45 days) The Plan of Treatment section includes future care activities for the patient [facility] [place] [facility]. This section includes future appointments and future orders which are active, pending or scheduled. Future Appointments This section includes appointments that were scheduled to occur 6 months from the date of the Encounter, up to a maximum of 20 appointments. The data comes from all [place] treatment facilities. Appointment Date/Time Appointment Type Appointme nt Facility Name November 06, 2023 02:50 PM AMBULATORY - MEDICINE [facility] [place] [facility] Nov 22, 2023 10:00 AM AMBULATORY - MEDICINE [facility] [place] [facility] Nov 27, 2023 02:00 PM AMBULATORY - MEDICINE [facility] [place] [facility] Feb 12, 2024 10:00 AM AMBULATORY - MEDICINE [facility] [place] [facility] Feb 28, 2024 01:00 PM [facility] [place] [facility] Feb 28, 2024 01:00 PM AMBULATORY - PS[facility]CHIATRY [facility] [place] [facility] Mar 25, 2024 10:00 AM AMBULATORY [facility] MEDIC[facility] [place] [facility] Mar 25, 2024 10:30 AM AMBULATORY - MEDICINE [place] [facility] [place] [facility] Apr 02, 2024 02:00 PM AMBULATORY - MEDIC[facility] [place] [facility] Apr 04, 2024 02:00 PM AMBULATORY - MEDICINE [place] [facility] [place] [facility] Apr 08, 2024 01:00 PM AMBULATORY - REHAB MEDICIN [facility] [place] [facility] Apr 12, 2024 09:45 AM AMBULATORY - MEDIC[facility] [place] [facility] Apr 16, 2024 10:00 AM AMBULATORY - REHAB MEDICIN E [facility] [place] [facility] May 02, 2024 10:00 AM AMBULATORY - REHAB MEDICIN E [facility] [place] [facility] Active, Pending, and Scheduled Orders This section includes a listing of several types of active, pending, and scheduled orders, including clinic medications orders, diagnostic test orders, procedure orders and consult orders; where the start date of the order is 45 days before the date of the Encounter or 45 days after the date of theEncounter. The data comes from all [place] treatment facilities. Test Date/Time Test Type Test Details Facility Name Oct 10, 2023 12:00 AM Laboratory - Chemi stry Order SURGICAL PATH ORDER SURG PATH SPEC. UNKNOWN SP [facility] Lab Results: +/- 30 days of the encounter This section includes the Chemistry and Hematology Lab Results on record with [place] for the patient. Radiology Reports and Pathology Reports are provided separately, in subsequent sections. Lab Results This section contains the Chemistry/Hematology Results that were resulted 30 days before or 30 daysafter the date of the Encounter. Date/Time Source Result Type Result - Unit Interpretation Reference Range Comment Oct 11, 2023 01:27 PM [facility] MICROALBUMIN CREATININE RATIO PANEL Specimen Type: URINE No comment entered. Ordering Provider: ALLIE CUELLO Report Released Date/Time: Jul 26, 2023 10:12 AM Reporting Lab: [facility] [address] [facility] [address] Performing Lab: [facility] [address] [facility] [address] MICROALBUMIN/C REATININE RATIO 7.1 mg/g 0-29.9 MICROALBUMIN,Q UANTITATIVE 0.8 mg/dL RR UNAVAIL CREATININE URINE 113.29 mg/dL Oct 10, 2023 03:42 PM [facility] LIVER FUNCTION Specimen Type: SERUM Comment: *BASIC METABOLIC PANEL (fasting) Not Performed: Oct 10, 2023@15:51 b *MANAGER DATA Reason: dup *LIPID PANEL FASTING Not Performed: Oct 10, 2023@15:51 by [id number] *MANAGER DATA Reason: dup Ordering Provider: JUAN LUIS CAI Report Released Date/Time: Jun 05, 2023 11:22 AM Reporting Lab: [facility] [address] [facility] [address] Performing Lab: [facility] [address] [facility] [address] PROTEIN,TOTAL 6.0 g/dL 6.0-8.3 ALBUMIN 4.2 g/dL 3.5-5.0 ALKALINE PHOSPHATASE 89 U/L 40-150 AST 29 U/L 5-34 ALT 29 U/L BILIRUBIN, TOTAL 1.3 mg/dL H 0.2-1.2 BILIRUBIN, DIRECT 0.5 mg/dL 0-0.5 Oct 10, 2023 03:41 PM [facility] TESTOSTERONE, TOTAL ([facility]) Specimen Type: SERUM No comment entered. Ordering Provider: ALLIE CUELLO Report Released Date/Time: Jul 26, 2023 10:12 AM Reporting Lab: [address] [address] Performing Lab: [address] [address] TESTOSTERONE, TOTAL ([facility]) 755.20 ng/dL 220.00-892 .00 Oct 10, 2023 03:41 PM [facility] PSA Specimen Type: SERUM No comment entered. Ordering Provider: ALLIE CUELLO Report Released Date/Time: Jul 26, 2023 10:12 AM Reporting Lab: [address] [address] Performing Lab: [address] [address] PSA 4.74 ng/mL H 0.00-4.00 Oct 10, 2023 03:41 PM [facility] HEMOGLOBIN A1C PANEL Specimen Type: BLOOD [...] Jul 26, 2023 10:12 AM Reporting Lab: [address] [address] Performing Lab: [address] [address] HEMOGLOBIN A1C 6.7 H 4.0-5.6 Oct 10, 2023 03:41 PM [facility] LIPID PANEL FASTING Specimen Type: SERUM No comment entered. Ordering Provider: ALLIE CUELLO Report Released Date/Time: Jul 26, 2023 10:12 AM Reporting Lab: [facility] [address] [facility] [address] Performing Lab: [facility] [address] [address] CHOLESTEROL 96 mg/dL TRIGLYCERIDE 101 mg/dL 0-150 LDL calculated 44 mg/dL 0-129 CHOL/HDL 3.0 HDL CHOLESTEROL 32 mg/dL L 40-60 Oct 10, 2023 03:41 PM [facility] CALCIUM Specimen Type: SERUM No comment entered. Ordering Provider: ALLIE CUELLO Report Released Date/Time: Oct 10, 2023 07:35 AM Reporting Lab: [address] [address] Performing Lab: [address] [address] CALCIUM 9.1 mg/dL 8.5-10.2 Oct 10, 2023 03:41 PM [facility] CBC Specimen Type: BLOOD No comment entered. Ordering Provider: ALLIE CUELLO Report Released Date/Time: Jul 26, 2023 10:12 AM Reporting Lab: [address] [address] Performing Lab: [facility] [address] WBC 5.42 10*3/uL 4.50-11.00 RBC 4.87 10*6/uL 4.23-5.66 HGB 12.5 g/dL L 12.8-17 HCT 39.4 39.2-50.4 MCV 80.9 fL L 82-99 MCHC 31.7 g/dL 30.8-35.1 PLT 123 10*3/uL L 140-360 RDW-CV 14.7 12.0-16.0 MCH 25.7 pg L 26.2-32.6 Oct 10, 2023 03:41 PM [facility] VITAMIN D (25-OH) Specimen Type: SERUM No comment entered. Ordering Provider: ALLIE CUELLO Report Released Date/Time: Oct 10, 2023 07:35 AM Reporting Lab: [facility] [address] [facility] [address] Performing Lab: [address] [address] VITAMIN D (25-OH) 41 ng/mL 20-50 Oct 10, 2023 03:41 PM [facility] BASIC METABOLIC PANEL (fasting) Specimen Type: SERUM No comment entered. Ordering Provider: ALLIE CUELLO Report Released Date/Time: Jul 26, 2023 10:12 AM Reporting Lab: [facility] [address] [facility] [address] Performing Lab: [address] [address] UREA NITROGEN 22 mg/dL 7-25 GLUCOSE 172 [...] Height Weight Body Mass Index Source November 02, 2023 11:30 AM 98.1 89 134/72 16 95 [facility] Social History: Smoking Status (Most current) and Tobacco Use (All prior to encounter date) This section includes the most current, and the historical, smoking and tobacco- related health factors from the [place] facility where the Encounter took place. Current Smoking Status This section includes the most current smoking, or tobacco-related health factor, from the [place] facility where the Encounter took place. Date/Time Current Smoking Status Comment Facil ity Jun 05, 2023 11:00 AM VA-TOBACCO FORMER USER [facility] Tobacco Use History This section includes a history of the smoking, or tobacco-related health factors, that were collected on or before the date of the Encounter. The data comes from the [place] facility where the Encounter took place. Date/Time Smoking Status/Tobac co Use Comment Facility Jun 05, 2023 11:00 AM VA-TOBACCO QUIT 15 YRS OR MORE [facility] [place] [facility] Jun 06, 2022 01:00 PM VA-TOBACCO FORMER USER [facility] [place] [facility] Jun 06, 2022 01:00 PM VA-TOBACCO QUIT 15 YRS OR MORE [facility] [place] [facility] Jun 30, 2021 02:37 PM VA-TOBACCO FORMER USER [facility] [place] [facility] Jun 30, 2021 02:37 PM VA-TOBACCO QUIT 5 TO < 15 YRS [facility] [place] [facility] May 22, 2020 03:30 PM VA-TOBACCO NEVER USED IN [facility] [place] [facility] May 08, 2018 02:03 PM VA-TOBACCO FORMER USER [facility] [place] [facility] May 08, 2018 02:03 PM VA-TOBACCO QUIT 15 YRS OR MORE [facility] [place] [facility] November 10, 2017 02:33 PM QUIT TOBACCO USE > 7 YEARS AGO [facility] [place] [facility] October 21, 2016 01:55 PM QUIT TOBACCO USE > 7 YEARS AGO [facility] [place] [facility] Sep 18, 2015 11:24 AM QUIT TOBACCO USE > 7 YEARS AGO stopped 50 years ago [facility] [place] [facility] May 19, 2005 08:01 AM HISTORY OF SMOKING [facility] [place] [facility] May 31, 2004 01:02 PM HISTORY OF SMOKING [facility] [place] [facility] Jun 04, 2003 07:57 AM HISTORY OF SMOKING [facility] [place] [facility] Jun 03, 2002 01:11 PM HISTORY OF SMOKING [facility] [place] [facility] Jun 03, 2002 01:11 PM QUIT TOBACCO USE > 7 YEARS AGO [facility] [place] [facility] Advance Directives: All historical and current Section Date Range: From patient's date of to the date document was created. This section includes ALL of a patient's completed or amended [place] Advance and Rescinded Directives. The entries below indicate that a directive exists for the patient, but an actual copy is not included with this document. The data comes from all [place] facilities. Date Advance Directives Provider Source Jun 02, 2023 ADVANCE DIRECTIVE MARYANNETRICEJENNIFER IN [facility] Pathology Reports: +/- 30 days of [...] the Encounter. The data comes from all [place] treatment facilities. Date/Time Pathology Report Provider Source Oct 12, 2023 10:54 AM LR SURGICAL PATHOLOGY REPORT: LOCAL TITLE: LR SURGICAL PATHOLOGY REPORT STANDARD TITLE: PATHOLOGY DIAGNOSTIC STUDY REPORT DATE OF NOTE: OCT 12, 2023@10:54:23 ENTRY DATE: OCT 12, 2023@10:54:23 AUTHOR: LESTER ANDERSON MD EXP COSIGNER: URGENCY: STATUS: COMPLETED $APHDR Reporting Lab: IN [facility] [CLIA# [id number]] [address] [place] [id number] - - - - - - - [...] - - - PATHOLOGY REPORT Accession No. [facility] 174 - - - - - - - - - - - - - - - - - - - - - - - - - - - - - - - - - - - - - - - - Gross description: [facility] 24 [id number];A;1;Nisa SHEPHERD This is a [facility] case number [facility] 24 174. Received in formalin is a [...] lateral and deep tissue margins. CPT codes 29327u6 /thomas/ LESTER ANDERSON MD Board Certified Dermatopathologist Signed Oct 12, 2023@10:54 Performing Laboratory: Surgical Pathology Report Performed By: [facility] [CLIA# [id number]] [address] [place] [id number] $FTR - - - - - - [...] - - BEBO SHEPHERD STANDARD FORM 515 ID:[id number] SEX:M :1940 AGE: 83 LOC:CWM/NO/CVT/DERMATOLOGY/N P PCP: RUBY Long /thomas/ LESTER ADNERSON MD Board Certified Dermatopathologist Signed: 10/12/2023 10:54 LESTER ANDERSON MD [facility] Encounter Notes: All associated encounter notes This section contains the clinical notes associated to the Encounter. Date/Time Encounter Note(s) Provider Source November 02, 2023 11:33 AM PRIMARY CARE NOTE: LOCAL TITLE: WALK-IN NOTE PRIMARY CARE (T) STANDARD TITLE: PRIMARY CARE NOTE DATE OF NOTE: NOVEMBER 02, 2023@11:33 ENTRY DATE: NOVEMBER 02, 2023@11:33:46 AUTHOR: VIJAYA KENDALL COSIGNER: URGENCY: STATUS: COMPLETED <====Click to Start Nurse Data: 83year old MALE [place] reports to Primary Care clinic for Walk-In visit. Today Vet walks in to clinic with complaint of right upper extremity swelling. was in sick call yesterday with right elbow bursitis, procedure to drain elbow was preform. He woke up today with swelling to his hand and forearm. Not painful nor red, skin looks thin, puffy, and fluid filled. [place] removed dressing and jb bandage this morning, the area under the dressing and elbow is not swollen. 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 Last recorded Vital Signs are: Temperature:98.1 F [36.7 C] (11/02/2023 11:30) Pulse:89 (11/02/2023 11:30) Blood Pressure:134/72 (11/02/2023 11:30) Respiration:16 (11/02/2023 11:30) Pain:2 (11/01/2023 11:33) Vet reports current allergies are: Remote Allergy Data No Remote Allergy/ADR Data available for this patient Current Medications from Active Med list include: Active Outpatient Medications (including Supplies): Active Outpatient Medications Status 1) ATORVASTATIN CALCIUM 80MG TAB TAKE ONE-HALF TABLET BY ACTIVE MOUTH ONCE DAILY 2) CALCIUM 200MG (CA CITRATE-950MG) TAB TAKE FOUR ACTIVE TABLETS BY MOUTH TWICE DAILY 3) CITALOPRAM HYDROBROMIDE 20MG TAB TAKE ONE-HALF TABLET ACTIVE BY MOUTH ONCE DAILY FOR MOOD 4) DENOSUMAB 60MG/ML INJ SYRINGE 1ML INJECT 60MG/1ML ACTIVE SUBCUTANEOUSLY ONE TIME FOR OSTEOPOROSIS 5) HYDROXYCHLOROQUINE SULFATE 200MG TAB TAKE ONE [...] WEEKS, THEN NEEDED 8) KETOCONAZOLE 2% SHAMPOO SMALL AMOUNT ACTIVE TOPICALLY TWICE A WEEK NEEDED APPLY FOR 8 WEEKS, THEN NEEDED 9) MULTIVIT/OPHTH AREDS2/LUTE/ZEAX CAP/TAB TAKE 1 ACTIVE CAPSULE BY MOUTH TWICE DAILY IN THE MORNING AND EVENING, WITH FOOD 10) NEEDLE 18G 1IN USE 1 NEEDLE EVERY 7 DAYS FOR ACTIVE INJECTION 11) NEEDLE 23G 1IN USE 1 NEEDLE EVERY 7 DAYS FOR ACTIVE INJECTION 12) PREDNISONE 10MG TAB TAKE ONE TABLET BY MOUTH ONCE ACTIVE DAILY 13) PREDNISONE 1MG TAB TAKE FOUR TABLETS BY MOUTH ONCE ACTIVE DAILY 14) SYRINGE 1ML LUER LOCK TIP USE 1 SYRINGE EVERY 7 DAYS ACTIVE 15) TAMSULOSIN HCL 0.4MG CAP TAKE ONE CAPSULE BY MOUTH AT ACTIVE BEDTIME FOR ENLARGED PROSTATE 16) TOCILIZUMAB 162MG/0.9ML INJ SYR 0.9ML INJECT 162MG ACTIVE SUBCUTANEOUSLY EVERY 2 WEEKS Active Non-VA Medications Status 1) Non-VA ACETAMINOPHEN TAB BY MOUTH ONCE DAILY ACTIVE NEEDED 2) Non-VA AMLODIPINE BESYLATE 2.5MG TAB 2.5MG BY MOUTH ACTIVE ONCE DAILY 3) Non-VA ASPIRIN 81MG EC TAB 81MG BY MOUTH ONCE DAILY ACTIVE 4) Non-VA CHOLECALCIF 50MCG (D3-2,000UNIT) TAB 50MCG BY ACTIVE MOUTH ONCE DAILY 5) Non-VA CYCLOBENZAPRINE HCL 10MG TAB 10MG BY MOUTH ACTIVE TWICE DAILY 6) Non-VA DOCUSATE NA 100MG CAP 100MG BY MOUTH TWICE ACTIVE DAILY 7) Non-VA FUROSEMIDE 20MG TAB 20MG BY MOUTH ONCE DAILY ACTIVE 8) Non-VA LOSARTAN 100MG TAB 100MG BY MOUTH DAILY ACTIVE 9) Non-VA OMEPRAZOLE 20MG EC CAP 20MG BY MOUTH EVERY DAY ACTIVE 10) Non-VA PILOCARPINE HCL 5MG TAB 5MG BY MOUTH TWICE ACTIVE DAILY 26 Total Medications Action: Recommended sick call provider visit for evaluation, Scheduled @ 11:30. Reminders Info Only: [place] Video Connect Capable DUE NOW Mental Health Treatment Plan DUE NOW Medication Reconciliation DUE NOW COVID-19 Immunization DUE NOW (Optional) Whole Health Documentation DUE NOW Response: Understood and agreed to plan. /es/ VIJAYA KENDALL, RN REGISTERED NURSE Signed: 11/02/2023 11:41 [facility]ALL [facility]
--- OUTSIDE RECORDS SUMMARY | 2024-06-14 13:19 | XMS_ITS | Encounter Summary ---
Author Name [facility] [place] [facility] [place] Address [address] [place] [id number] Care Team Providers Care Sign Artist Name Role Phone TOÑO CAI Primary Care [...] O MEDEX BRONZ E Mar 19, 2004 [id number] [phone] HOLLIE SHEPHERD [place]IENT [place] SUPPLEMEN MASTER MEDEX BRONZ E Mar 19, 2004 [id number] HOLLIE SHEPHERD [place] SUPPLEMEN MASTER MEDEX BRONZ E Mar 19, 2004 [id number] [phone] HOLLIE SHEPHERD PATIENT BCBS [facility] MEDICARE SUPPLEMEN MASTER PSUED O MEDEX BRONZ E Mar 19, 2004 [id number] [phone] HOLLIE SHEPHERD PATIENT MEDICARE (WNR) MEDICARE (M) PART B Mar 19, 2004 PART B [id number] HOLLIE SHEPHERD PATIENT MEDICARE (WNR) MEDICARE (M) PART B Mar 19, 2004 PART B [id number] HOLLIE SHEPHERD ALD PATIENT MEDICARE (WNR) MEDICARE (M) PART B Mar 19, 2004 PART B [id number] HOLLIE SHEPHERD ALD PATIENT MEDICARE (WNR) MEDICARE (M) PART A Feb 17, 2003 PART A [id number] HOLLIE SHEPHERD ALD PATIENT MEDICARE (WNR) MEDICARE (M) PART A Feb 17, 2003 PART A [id number] HOLLIE SHEPHERD ALD PATIENT MEDICARE (WNR) MEDICARE (M) PART A Feb 17, 2003 PART A [id number] HOLLIE SHEPHERD PATIENT MEDICARE (WNR) MEDICARE (M) PART A Feb 17, 2003 PART A [id number] [phone] HOLLIE SHEPHERD PATIENT MEDICARE (WNR) MEDICARE (M) PART B Feb 17, 2003 PART B [id number] [phone] HOLLIE SHEPHERD PATIENT MEDICARE (WNR) MEDICARE (M) PART A Feb 17, 2003 PART A [id number] [phone] HOLLIE SHEPHERD PATIENT MEDICARE (WNR) MEDICARE (M) PART B Feb 17, 2003 PART B [id number] HOLLIE SHEPHERD PATIENT Selected Encounter This section includes the information on record at [place] for the Encounter. Date/Time Encounter Type Encounter Description Reason Pro vider Source November 01, 2023 11:46 AM Outpatient Encounter EVENT (HISTORICAL) IHE Encounter Template Text not used by PA Plan of Treatment: Future Appointments (+ 6 months) and Future Tests (+/- 45 days) The Plan of Treatment section includes future care activities for the patient from all PA treatmentfacilities. This section includes future appointments and future orders which are active, pending or scheduled. Future Appointments This section includes appointments that were scheduled to occur 6 months from the date of the Encounter, up to a maximum of 20 appointments. The data comes from all [place] treatment facilities. Appointment Date/Time Appointment Type Appointme nt Facility Name November 02, 2023 11:15 AM [facility]ULATORY [facility]IC[facility] [place] [facility] November 02, 2023 11:30 AM AMBULATORY [facility] MEDIC[facility] [place] [facility] November 06, 2023 02:50 PM AMBULATORY - MEDICINE [facility] [place] [facility] Nov 22, 2023 10:00 AM AMBULATORY [facility]IC[facility] [place] [facility] Nov 27, 2023 02:00 PM AMBULATORY - MEDICINE [facility] [place] [facility] Feb 12, 2024 10:00 AM AMBULATORY [facility] MEDICINE [facility] [place] [facility] Feb 28, 2024 01:00 PM [place] [facility] Feb 28, 2024 01:00 PM AMBULATORY - PS[facility]CHIATRY [facility] [place] [facility] Mar 25, 2024 10:00 AM AMBULATORY [facility] MEDICINE [facility] [place] [facility] Mar 25, 2024 10:30 AM AMBULATORY [facility]ICINE [facility] [place] [facility] Apr 02, 2024 02:00 PM AMBULATORY - MEDICINE [facility] [place] [facility] Apr 04, 2024 02:00 PM AMBULATORY [facility]ICINE [facility] [place] [facility] Apr 08, 2024 01:00 PM AMBULATORY - REHAB MEDICIN [facility] [place] [facility] Apr 12, 2024 09:45 AM AMBULATORY [facility] MEDICINE [facility] [place] [facility] Apr 16, 2024 10:00 AM AMBULATORY - REHAB MEDICIN E [facility] [place] [facility] May 02, 2024 10:00 AM AMBULATORY - REHAB MEDICIN E [facility] [place] [facility] Active, Pending, and Scheduled Orders This section includes a listing of several types of active, pending, and scheduled orders, including clinic medications orders, diagnostic test orders, procedure orders and consult orders; where the start date of the order is 45 days before the date of the Encounter or 45 days after the date of theEncounter. The data comes from all [place] treatment facilities. Test Date/Time Test Type Test Details Facility Name Oct 10, 2023 12:00 AM Laboratory - Chemi stry Order SURGICAL PATH ORDER SURG PATH SPEC. UNKNOWN SP [facility] Lab Results: +/- 30 days of the encounter This section includes the Chemistry and Hematology Lab Results on record with PA for the patient. Radiology Reports and Pathology Reports are provided separately, in subsequent sections. Lab Results This section contains the Chemistry/Hematology Results that were resulted 30 days before or 30 daysafter the date of the Encounter. Date/Time Source Result Type Result - Unit Interpretation Reference Range Comment Oct 11, 2023 01:27 PM [facility] MICROALBUMIN CREATININE RATIO PANEL Specimen Type: URINE No comment entered. Ordering Provider: ALLIE CUELLO Report Released Date/Time: Jul 26, 2023 10:12 AM Reporting Lab: [address] [address] Performing Lab: [address] [address] MICROALBUMIN/C REATININE RATIO 7.1 mg/g 0-29.9 MICROALBUMIN,Q UANTITATIVE 0.8 mg/dL RR UNAVAIL CREATININE URINE 113.29 mg/dL Oct 10, 2023 03:42 PM [facility] LIVER FUNCTION Specimen Type: SERUM Comment: *BASIC METABOLIC PANEL (fasting) Not Performed: Oct 10, 2023@15:51 b *[employer]IV[employer] ATTORNEY Reason: dup *LIPID PANEL FASTING Not Performed: Oct 10, 2023@15:51 by [id number] *CIVIL RIGHTS ATTORNEY Reason: dup Ordering Provider: JUAN LUIS CAI Report Released Date/Time: Jun 05, 2023 11:22 AM Reporting Lab: [facility] [address] [facility] [address] Performing Lab: [address] [address] PROTEIN,TOTAL 6.0 g/dL 6.0-8.3 ALBUMIN 4.2 g/dL 3.5-5.0 ALKALINE PHOSPHATASE 89 U/L 40-150 AST 29 U/L 5-34 ALT 29 U/L BILIRUBIN, TOTAL 1.3 mg/dL H 0.2-1.2 BILIRUBIN, DIRECT 0.5 mg/dL 0-0.5 Oct 10, 2023 03:41 PM [facility] TESTOSTERONE, TOTAL ([facility]) Specimen Type: SERUM No comment entered. Ordering Provider: ALLIE CUELLO Report Released Date/Time: Jul 26, 2023 10:12 AM Reporting [facility] [address] [address] Performing Lab: [address] [address] TESTOSTERONE, TOTAL ([facility]) 755.20 ng/dL 220.00-892 .00 Oct 10, 2023 03:41 PM [facility] PSA Specimen Type: SERUM No comment entered. Ordering Provider: ALLIE CUELLO Report Released Date/Time: Jul 26, 2023 10:12 AM Reporting Lab: [address] [address] Performing Lab: [address] [address] PSA 4.74 ng/mL H 0.00-4.00 Oct 10, 2023 03:41 PM [facility] CBC Specimen Type: BLOOD No comment entered. Ordering Provider: ALLIE CUELLO Report Released Date/Time: Jul 26, 2023 10:12 AM Reporting Lab: [address] [address] Performing Lab: [address] [address] WBC 5.42 10*3/uL 4.50-11.00 RBC 4.87 10*6/uL 4.23-5.66 HGB 12.5 g/dL L 12.8-17 HCT 39.4 39.2-50.4 MCV 80.9 fL L 82-99 MCHC 31.7 g/dL 30.8-35.1 PLT 123 10*3/uL L 140-360 RDW-CV 14.7 12.0-16.0 MCH 25.7 pg L 26.2-32.6 Oct 10, 2023 03:41 PM [facility] LIPID PANEL FASTING Specimen Type: SERUM No comment entered. Ordering Provider: ALLIE CUELLO Report Released Date/Time: Jul 26, 2023 10:12 AM Reporting [facility] [address] [facility] [address] Performing [facility]: [facility] [address] [facility] [address] CHOLESTEROL 96 mg/dL TRIGLYCERIDE 101 mg/dL 0-150 LDL calculated 44 mg/dL 0-129 CHOL/HDL 3.0 HDL CHOLESTEROL 32 mg/dL L 40-60 Oct 10, 2023 03:41 PM [facility] HEMOGLOBIN A1C PANEL Specimen Type: BLOOD [...] Jul 26, 2023 10:12 AM Reporting Lab[facility] [address] [facility] [address] Performing Lab: [facility] [address] [facility] [address] HEMOGLOBIN A1C 6.7 H 4.0-5.6 Oct 10, 2023 03:41 PM [facility] CALCIUM Specimen Type: SERUM No comment entered. Ordering Provider: ALLIE CUELLO Report Released Date/Time: Oct 10, 2023 07:35 AM Reporting Lab[facility] [address] [facility] [address] Performing Lab: [facility] [address] CALCIUM 9.1 mg/dL 8.5-10.2 Oct 10, 2023 03:41 PM [facility] BASIC METABOLIC PANEL (fasting) Specimen Type: SERUM No comment entered. Ordering Provider: ALLIE CUELLO Report Released Date/Time: Jul 26, 2023 10:12 AM Reporting Lab: [address] [address] Performing Lab: [address] [address] UREA NITROGEN 22 mg/dL 7-25 GLUCOSE 172 mg/dL H 65-100 SODIUM 137 mmol/L 135-145 POTASSIUM 4.0 mmol/L 3.5-5.0 CHLORIDE 101 mmol/L 100-110 CO2 26 meq/L 20-30 CREATININE, Serum 1.26 mg/dL 0.50-1.40 eGFR(CKD-EPI 2020) 56 mL/min L >60 Oct 10, 2023 03:41 PM [facility] VITAMIN D (25-OH) Specimen Type: SERUM No comment entered. Ordering Provider: ALLIE CUELLO Released Date/Time: Oct 10, 2023 07:35 AM Reporting Lab: [address] [address] Performing Lab: [address] [address] VITAMIN D (25-OH) 41 ng/mL 20-50 Vital Signs: All taken on the encounter date This section contains inpatient and outpatient Vital Signs collected on the date of the Encounter. Date/Time Temperature Pulse Blood Pressure Respiratory Rate SP02 Pain Height Weight Body Mass Index Source November 01, 2023 11:33 AM 98.3 76 133/77 16 96 2 184 31 [facility] Social History: Smoking Status (Most current) and Tobacco Use (All prior to encounter date) This section includes the most current, and the historical, smoking and tobacco- related health factors from the PA facility where the Encounter took place. Current Smoking Status This section includes the most current smoking, or tobacco-related health factor, from the PA facility where the Encounter took place. Date/Time Current Smoking Status Comment Ninfa chahal Jun 05, 2023 11:00 AM VA-TOBACCO FORMER USER [facility] Tobacco Use History This section includes a history of the smoking, or tobacco-related health factors, that were collected on or before the date of the Encounter. The data comes from the PA facility where the Encounter took place. Date/Time Smoking Status/Tobac co Use Comment Facility Jun 05, 2023 11:00 AM VA-TOBACCO QUIT 15 YRS OR MORE [facility] [place] [facility] Jun 06, 2022 01:00 PM VA-TOBACCO FORMER USER [facility] [place] [facility] Jun 06, 2022 01:00 PM VA-TOBACCO QUIT 15 YRS OR MORE [facility] [place] [facility] Jun 30, 2021 02:37 PM VA-TOBACCO FORMER USER [facility] [place] [facility] Jun 30, 2021 02:37 PM VA-TOBACCO QUIT 5 TO < 15 YRS [facility] [place] [facility] May 22, 2020 03:30 PM VA-TOBACCO NEVER USED [facility] [place] [facility] May 08, 2018 02:03 PM VA-TOBACCO FORMER USER [facility] [place] [facility] May 08, 2018 02:03 PM VA-TOBACCO QUIT 15 YRS OR MORE [facility] [place] [facility] November 10, 2017 02:33 PM QUIT TOBACCO USE > 7 YEARS AGO [facility] [place] [facility] October 21, 2016 01:55 PM QUIT TOBACCO USE > 7 YEARS AGO [facility] [place] [facility] Sep 18, 2015 11:24 AM QUIT TOBACCO USE > 7 YEARS AGO stopped 50 years ago [facility] [place] [facility] May 19, 2005 08:01 AM HISTORY OF SMOKING [facility] [place] [facility] May 31, 2004 01:02 PM HISTORY OF SMOKING [facility] [place] [facility] Jun 04, 2003 07:57 AM HISTORY OF SMOKING [facility] [place] [facility] Jun 03, 2002 01:11 PM HISTORY OF SMOKING [facility] [place] [facility] Jun 03, 2002 01:11 PM QUIT TOBACCO USE > 7 YEARS AGO [facility] [place] [facility] Advance Directives: All historical and current Section Date Range: From patient's date of to the date document was created. This section includes ALL of a patient's completed or amended [place] Advance and Rescinded Directives. The entries below indicate that a directive exists for the patient, but an actual copy is not included with this document. The data comes from all PA facilities. Date Advance Directives Provider Source Jun 02, 2023 ADVANCE DIRECTIVE MARYANNETRICEJENNIFER PA [facility] Pathology Reports: +/- 30 days of the [...] the Encounter. The data comes from all PA treatment facilities. Date/Time Pathology Report Provider Source Oct 12, 2023 10:54 AM LR SURGICAL PATHOLOGY REPORT: LOCAL TITLE: LR SURGICAL PATHOLOGY REPORT STANDARD TITLE: PATHOLOGY DIAGNOSTIC STUDY REPORT DATE OF NOTE: OCT 12, 2023@10:54:23 ENTRY DATE: OCT 12, 2023@10:54:23 AUTHOR: LESTER ANDERSON MD EXP COSIGNER: URGENCY: STATUS: COMPLETED $APHDR Reporting Lab: [facility] [CLIA# [id number]] [address] [place] [address] - - - - - - - [...] - - - PATHOLOGY REPORT Accession No. [facility] [id number] - - - - - - - - - - - - - - - - - - - - - - - - - - - - - - - - - - - - - - - - Gross description: [facility] 2182;A;1;Nisa SHEPHERD This is a [facility] case number [facility] [id number]. Received in formalin is a [...] lateral and deep tissue margins. CPT codes [id number] /thomas/ LESTER ANDERSON MD Board Certified Dermatopathologist Signed Oct 12, 2023@10:54 Performing Laboratory: Surgical Pathology Report Performed By: [facility] [CLIA# [id number]] [address] [place] [address] $FTR - - - - - - [...] - - BEBO SHEPHERD STANDARD FORM 515 ID:[id number] SEX:M :1940 AGE: 83 LOC:CWM/NO/CVT/DERMATOLOGY/N P PCP: RUBY Long /thomas/ LESTER ANDERSON MD Board Certified Dermatopathologist Signed: 10/12/2023 10:54 LESTER ANDERSON MD [facility] [place] [facility]
--- OUTSIDE RECORDS SUMMARY | 2024-06-14 13:19 | XMS_ITS | Encounter Summary ---
Author Name [facility] [place] [facility] [place] Address [address] [place] [id number] Care Team Providers Care Solar Installer Name Role Phone TOÑO PETER Primary Care [...] Relationship to Policy Wen [place] MED[place] SUPPLEMEN MASTER PSUED O MEDEX BRONZ E Mar 19, 2004 [id number] [phone] HOLLIE SHEPHERD PATIENT [place] SUPPLEMEN MASTER MEDEX BRONZ E Mar 19, 2004 [id number] [phone] HOLLIE [place]PH[place] SUPPLEMEN MASTER MEDEX BRONZ E Mar 19, 2004 [id number] [phone] HOLLIE SHEPHERD PATIENT BCBS [facility] MEDICARE SUPPLEMEN MASTER PSUED O MEDEX BRONZ E Mar 19, 2004 [id number] [phone] HOLLIE SHEPHERD PATIENT MEDICARE (WNR) MEDICARE (M) PART B Mar 19, 2004 PART B [id number] CORA,HOLLIE ALD PATIENT MEDICARE (WNR) MEDICARE (M) PART B Mar 19, 2004 PART B [id number] [phone] HOLLIE SHEPHERD ALD PATIENT MEDICARE (WNR) MEDICARE (M) PART B Mar 19, 2004 PART B [id number] [phone] HOLLIE SHEPHERD ALD PATIENT MEDICARE (WNR) MEDICARE (M) PART A Feb 17, 2003 PART A [id number] [phone] CORAHOLLIE SILVA ALD PATIENT MEDICARE (WNR) MEDICARE (M) PART A Feb 17, 2003 PART A [id number] HOLLIE SHEPHERD ALD PATIENT MEDICARE (WNR) MEDICARE (M) PART A Feb 17, 2003 PART A [id number] HOLLIE SHEPHERD PATIENT MEDICARE (WNR) MEDICARE (M) PART A Feb 17, 2003 PART A [id number] HOLLIE SHEPHERD ALD PATIENT MEDICARE (WNR) MEDICARE (M) PART B Feb 17, 2003 PART B [id number] HOLLIE SHEPHERD PATIENT MEDICARE (WNR) MEDICARE () PART A Feb 17, 2003 PART A [id number] HOLLIE SHEPHERD PATIENT MEDICARE (WNR) MEDICARE () PART B Feb 17, 2003 PART B [id number] HOLLIE SHEPHERD PATIENT Selected Encounter This section includes the information on record at [place] for the Encounter. Date/Time Encounter Type Encounter Description Reason Provider Source Oct 11, 2023 12:38 PM Outpatient Encounter TELEPHONE/MEDICIN E ICD-10-CM E29.1 Testicular hypofunction ALLIE CUELLO Mikey Encounter Template Text not used by [place] Assessments - Encounter Diagnoses This section includes the primary and secondary diagnoses documented for the Encounter. Date/Time Primary/Secondary Diagnosis Diagnosis Name Provider Source Oct 11, 2023 12:38 PM PRIMARY Testicular hypofunction ALLIE CUELLO [place] [facility] Plan of Treatment: Future Appointments (+ 6 months) and Future Tests (+/- 45 days) The Plan of Treatment section includes future care activities for the patient from all [place] treatmentfacilities. This section includes future appointments and future orders which are active, pending or scheduled. Future Appointments This section includes appointments that were scheduled to occur 6 months from the date of the Encounter, up to a maximum of 20 appointments. The data comes from all [place] treatment facilities. Appointment Date/Time Appointment Type Appointme nt Facility Name October 18, 2023 01:00 PM AMBULATORY [facility]ICINE [facility] [place] [facility] November 01, 2023 10:30 AM [place] [facility] November 01, 2023 10:30 AM AMBULATORY - PS[facility]CHIATRY [facility] [place] [facility] November 01, 2023 11:15 AM AMBULATORY - MEDICINE [facility] [place] [facility] November 01, 2023 01:30 PM AMBULATORY [facility] MEDICINE [facility] [place] [facility] November 02, 2023 11:15 AM AM[facility]ULATORY [facility]ICINE [facility] [place] [facility] November 02, 2023 11:30 AM AMBULATORY [facility]ICINE [facility] [place] [facility] November 06, 2023 02:50 PM AMBULATORY [facility]ICINE [facility] [place] [facility] Nov 22, 2023 10:00 AM AMBULATORY - MEDICINE [facility] [place] [facility] Nov 27, 2023 02:00 PM AMBULATORY - MEDICINE [facility] [place] [facility] Feb 12, 2024 10:00 AM AM[facility]ULATORY [facility]IC[facility] [place] [facility] Feb 28, 2024 01:00 PM AMBULATORY [place] [facility] Feb 28, 2024 01:00 PM AMBULATORY - PS[facility]IATRY [facility] [place] [facility] Mar 25, 2024 10:00 AM AMBULATORY [facility] MEDICINE [facility] [place] [facility] Mar 25, 2024 10:30 AM AMBULATORY [facility]ICINE [facility] [place] [facility] Apr 02, 2024 02:00 PM AMBULATORY [facility]ICINE [facility] [place] [facility] Apr 04, 2024 02:00 PM AMBULATORY - MEDICINE [facility] [place] [facility] Apr 08, 2024 01:00 PM AMBULATORY - REHAB MEDICIN E [facility] [place] [facility] Active, Pending, and Scheduled Orders This section includes a listing of several types of active, pending, and scheduled orders, including clinic medications orders, diagnostic test orders, procedure orders and consult orders; where the start date of the order is 45 days before the date of the Encounter or 45 days after the date of theEncounter. The data comes from all [place] treatment facilities. Test Date/Time Test Type Test Details Facility Name Oct 10, 2023 12:00 AM Laboratory - Chemi stry Order SURGICAL PATH ORDER SURG PATH SPEC. UNKNOWN SP [facility] Lab Results: +/- 30 days of the encounter This section includes the Chemistry and Hematology Lab Results on record with [place] for the patient. Radiology Reports and Pathology Reports are provided separately, in subsequent sections. Lab Results This section contains the Chemistry/Hematology Results that were resulted 30 days before or 30 daysafter the date of the Encounter. Date/Time Source Result Type Result - Unit Interpretation Reference Range Comment Oct 11, 2023 01:27 PM [facility] MICROALBUMIN CREATININE RATIO PANEL Specimen Type: URINE No comment entered. Ordering Provider: ALLIE CUELLO Report Released Date/Time: Jul 26, 2023 10:12 AM Reporting Lab: [facility] [address] [facility] [address] Performing Lab: [facility] [address] [address] MICROALBUMIN/C REATININE RATIO 7.1 mg/g 0-29.9 MICROALBUMIN,Q UANTITATIVE 0.8 mg/dL RR UNAVAIL CREATININE URINE 113.29 mg/dL Oct 10, 2023 03:42 PM [facility] LIVER FUNCTION Specimen Type: SERUM Comment: *BASIC METABOLIC PANEL (fasting) Not Performed: Oct 10, 2023@15:51 b *STREETCAR REPAIRER Reason: dup *LIPID PANEL FASTING Not Performed: Oct 10, 2023@15:51 by [id number] *STREETCAR REPAIRER Reason: dup Ordering Provider: JUAN LUIS PETER Report Released Date/Time: Jun 05, 2023 11:22 AM Reporting Lab: [facility] [address] [facility] [address] Performing Lab: [facility] [address] PROTEIN,TOTAL 6.0 g/dL 6.0-8.3 ALBUMIN 4.2 g/dL 3.5-5.0 ALKALINE PHOSPHATASE 89 U/L 40-150 AST 29 U/L 5-34 ALT 29 U/L BILIRUBIN, TOTAL 1.3 mg/dL H 0.2-1.2 BILIRUBIN, DIRECT 0.5 mg/dL 0-0.5 Oct 10, 2023 03:41 PM [facility] TESTOSTERONE, TOTAL ([facility]) Specimen Type: SERUM No comment entered. Ordering Provider: ALLIE CUELLO Report Released Date/Time: Jul 26, 2023 10:12 AM Reporting Lab: [address] [address] Performing Lab: [address] [address] TESTOSTERONE, TOTAL ([facility]) 755.20 ng/dL 220.00-892 .00 Oct 10, 2023 03:41 PM [facility] PSA Specimen Type: SERUM No comment entered. Ordering Provider: ALLIE CUELLO Report Released Date/Time: Jul 26, 2023 10:12 AM Reporting Lab: [address] [address] Performing Lab: [address] [address] PSA 4.74 ng/mL H 0.00-4.00 Oct 10, 2023 03:41 PM [facility] CBC Specimen Type: BLOOD No comment entered. Ordering Provider: ALLIE CUELLO Report Released Date/Time: Jul 26, 2023 10:12 AM Reporting Lab: [address] [address] Performing Lab: [address] [address] WBC 5.42 10*3/uL 4.50-11.00 RBC 4.87 10*6/uL 4.23-5.66 HGB 12.5 g/dL L 12.8-17 HCT 39.4 39.2-50.4 MCV 80.9 fL L 82-99 MCHC 31.7 g/dL 30.8-35.1 PLT 123 10*3/uL L 140-360 RDW-CV 14.7 12.0-16.0 MCH 25.7 pg L 26.2-32.6 Oct 10, 2023 03:41 PM [facility] HEMOGLOBIN A1C PANEL Specimen Type: BLOOD Comment: [...] Jul 26, 2023 10:12 AM Reporting Lab: [address] [address] Performing Lab: [address] [address] HEMOGLOBIN A1C 6.7 H 4.0-5.6 Oct 10, 2023 03:41 PM [facility] LIPID PANEL FASTING Specimen Type: SERUM No comment entered. Ordering Provider: ALLIE CUELLO Report Released Date/Time: Jul 26, 2023 10:12 AM Reporting Lab: [address] [address] Performing Lab: [address] [address] CHOLESTEROL 96 mg/dL TRIGLYCERIDE 101 mg/dL 0-150 LDL calculated 44 mg/dL 0-129 CHOL/HDL 3.0 HDL CHOLESTEROL 32 mg/dL L 40-60 Oct 10, 2023 03:41 PM [facility] VITAMIN D (25-OH) Specimen Type: SERUM No comment entered. Ordering Provider: ALLIE CUELLO Report Released Date/Time: Oct 10, 2023 07:35 AM Reporting Lab: [address] [address] Performing Lab: [facility] [address] [facility] [address] VITAMIN D (25-OH) 41 ng/mL 20-50 Oct 10, 2023 03:41 PM [facility] BASIC METABOLIC PANEL (fasting) Specimen Type: SERUM No comment entered. Ordering Provider: ALLIE CUELLO Report Released Date/Time: Jul 26, 2023 10:12 AM Reporting Lab: [facility] [address] [facility] [facility] [address] Performing Lab: [address] [address] UREA NITROGEN 22 mg/dL 7-25 GLUCOSE 172 mg/dL H 65-100 SODIUM 137 mmol/L 135-145 POTASSIUM 4.0 mmol/L 3.5-5.0 CHLORIDE 101 mmol/L 100-110 CO2 26 meq/L 20-30 CREATININE, Serum 1.26 mg/dL 0.50-1.40 eGFR(CKD-EPI 2020) 56 mL/min L >60 Oct 10, 2023 03:41 PM [facility] CALCIUM Specimen Type: SERUM No comment entered. Ordering Provider: ALLIE CUELLO Report Released Date/Time: Oct 10, 2023 07:35 AM Reporting Lab: [facility] [address] [facility] [address] Performing Lab: [address] [address] CALCIUM 9.1 mg/dL 8.5-10.2 Social History: Smoking Status (Most current) and Tobacco Use (All prior to encounter date) This section includes the most current, and the historical, smoking and tobacco- related health factors from the [place] facility where the Encounter took place. Current Smoking Status This section includes the most current smoking, or tobacco-related health factor, from the [place] facility where the Encounter took place. Date/Time Current Smoking Status Comment Facil ity Jun 05, 2023 11:00 AM VA-TOBACCO FORMER USER [facility] Tobacco Use History This section includes a history of the smoking, or tobacco-related health factors, that were collected on or before the date of the Encounter. The data comes from the [place] facility where the Encounter took place. Date/Time Smoking Status/Tobac co Use Comment Facility Jun 05, 2023 11:00 AM VA-TOBACCO QUIT 15 YRS OR MORE [facility] [place] [facility] Jun 06, 2022 01:00 PM VA-TOBACCO FORMER USER [facility] [place] [facility] Jun 06, 2022 01:00 PM VA-TOBACCO QUIT 15 YRS OR MORE [facility] [place] [facility] Jun 30, 2021 02:37 PM VA-TOBACCO FORMER USER [facility] [place] [facility] Jun 30, 2021 02:37 PM VA-TOBACCO QUIT 5 TO < 15 YRS [facility] [place] [facility] May 22, 2020 03:30 PM VA-TOBACCO NEVER USED [facility] [place] [facility] May 08, 2018 02:03 PM VA-TOBACCO FORMER USER [facility] [place] [facility] May 08, 2018 02:03 PM VA-TOBACCO QUIT 15 YRS OR MORE [facility] [place] [facility] November 10, 2017 02:33 PM QUIT TOBACCO USE > 7 YEARS AGO [facility] [place] [facility] October 21, 2016 01:55 PM QUIT TOBACCO USE > 7 YEARS AGO [facility] [place] [facility] Sep 18, 2015 11:24 AM QUIT TOBACCO USE > 7 YEARS AGO stopped 50 years ago [facility] [place] [facility] May 19, 2005 08:01 AM HISTORY OF SMOKING [facility] [place] [facility] May 31, 2004 01:02 PM HISTORY OF SMOKING [facility] [place] [facility] Jun 04, 2003 07:57 AM HISTORY OF SMOKING [facility] [place] [facility] Jun 03, 2002 01:11 PM HISTORY OF SMOKING [facility] [place] [facility] Jun 03, 2002 01:11 PM QUIT TOBACCO USE > 7 YEARS AGO [place] [facility] [place] [facility] Advance Directives: All historical and current Section Date Range: From patient's date of to the date document was created. This section includes ALL of a patient's completed or amended [place] Advance and Rescinded Directives. The entries below indicate that a directive exists for the patient, but an actual copy is not included with this document. The data comes from all [place] facilities. Date Advance Directives Provider Source Jun 02, 2023 ADVANCE DIRECTIVE JENNIFER QUIROS [place] [facility] Pathology Reports: +/- 30 [...] the Encounter. The data comes from all [place] treatment facilities. Date/Time Pathology Report Provider Source Oct 12, 2023 10:54 AM LR SURGICAL PATHOLOGY REPORT: LOCAL TITLE: LR SURGICAL PATHOLOGY REPORT STANDARD TITLE: PATHOLOGY DIAGNOSTIC STUDY REPORT DATE OF NOTE: OCT 12, 2023@10:54:23 ENTRY DATE: OCT 12, 2023@10:54:23 AUTHOR: LESTER ANDERSON MD EXP COSIGNER: URGENCY: STATUS: COMPLETED $APHDR Reporting Lab: [place] [facility] [CLIA# [id number]] [address] [place] [id number] - - - - - - - [...] - - - PATHOLOGY REPORT Accession No. [facility] 24 [id number] - - - - - - - - - - - - - - - - - - - - - - - - - - - - - - - - - - - - - - - - Gross description: [facility] [[email or web address]] [id number];A;1;Nisa SHEPHERD This is a [facility] case number [facility] 24 [id number]. Received in formalin is a [...] lateral and deep tissue margins. CPT codes [id number] /thomas/ LESTER ANDERSON MD Board Certified Dermatopathologist Signed Oct 12, 2023@10:54 Performing Laboratory: Surgical Pathology Report Performed By: [facility] [CLIA# [id number]] [address] [place] [id number] $FTR - - - - - - [...] - - BEBO SHEPHERD STANDARD FORM 515 ID:[id number] SEX:M :1940 AGE: 83 LOC:CWM/NO/CVT/DERMATOLOGY/N P PCP: RUBY Long /thomas/ LESTER ANDERSON MD Board Certified Dermatopathologist Signed: 10/12/2023 10:54 LESTER ANDERSON MD [facility] Encounter Notes: All associated encounter notes This section contains the clinical notes associated to the Encounter. Date/Time Encounter Note(s) Provider Source Oct 11, 2023 12:38 PM PHYSICIAN NOTE: LOCAL TITLE: NOTE STANDARD TITLE: PHYSICIAN NOTE DATE OF NOTE: OCT 11, 2023@12:38 ENTRY DATE: OCT 11, 2023@12:38:35 AUTHOR: ALLIE CUELLO COSIGNER: URGENCY: STATUS: COMPLETED NOTE Has ADDENDA Elevated PSA Discussed all recent labs. PSA abrubtly víctor on testosterone. Referred to Urology. 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 He understands and agrees to plan. Continue present medication other than testosterone, which is discontinued. 10 min telephone encounter. /benny CUELLO MD STAFF PHYSICIAN Signed: 10/11/2023 12:41 Receipt Acknowledged By: 10/11/2023 13:03 /thomas/ Toño Peter PA-C STAFF PHYSICIAN [employer] 10/21/2023 ADDENDUM STATUS: COMPLETED All labs were reviewed with pt. /benny CUELLO MD STAFF PHYSICIAN Signed: 10/21/2023 10:13 ALLIE CUELLO [facility]
--- OUTSIDE RECORDS SUMMARY | 2024-06-14 13:19 | XMS_ITS | Encounter Summary ---
Author Name [facility] [place] Organization [facility] [place] Address [address] [place] [address] Care Team Providers Care Thermograph Operator Name Role Phone TOÑO CAI Primary [...] Relationship to Policy Wen [place] OF [place] MEDICARE SUPPLEMEN MASTER PSUED O MEDEX [facility] E Mar 19, 2004 [id number] HOLLIE SHEPHERD PATIENT [place] MED[place] SUPPLEMEN MASTER MEDEX [place] E Mar 19, 2004 [id number] HOLLIE SHEPHERD [place]IENT [place] SUPPLEMEN MASTER MEDEX [place] E Mar 19, 2004 [id number] [id number] HOLLIE SHEPHERD PATIENT BCBS [facility] MEDICARE SUPPLEMEN MASTER PSUED O MEDEX [place] E Mar 19, 2004 [id number] HOLLEI SHEPHERD PATIENT MEDICARE (WNR) MEDICARE (M) PART B Mar 19, 2004 PART B [id number] HOLLIE SHEPHERD PATIENT MEDICARE (WNR) MEDICARE (M) PART B Mar 19, 2004 PART B [id number] [phone] HOLLIE SHEPHERD PATIENT MEDICARE (WNR) MEDICARE (M) PART B Mar 19, 2004 PART B [id number] [phone] CORAHOLLIE SILVA PATIENT MEDICARE (WNR) MEDICARE (M) PART A Feb 17, 2003 PART A [id number] [phone] [id number] CORAHOLLIE SILVA PATIENT MEDICARE (WNR) MEDICARE (M) PART A Feb 17, 2003 PART A [id number] [phone] HLOLIE SHEPHERD PATIENT MEDICARE (WNR) MEDICARE (M) PART A Feb 17, 2003 PART A [id number] [phone] HOLLIE SHEPHERD PATIENT MEDICARE (WNR) MEDICARE (M) PART A Feb 17, 2003 PART A [id number] HOLLIE SHEPHERD PATIENT MEDICARE (WNR) MEDICARE (M) PART B Feb 17, 2003 PART B [id number] [phone] HOLLIE SHEPHERD PATIENT MEDICARE (WNR) MEDICARE (M) PART A Feb 17, 2003 PART A [id number] HOLLIE SHEPHERD PATIENT MEDICARE (WNR) MEDICARE (M) PART B Feb 17, 2003 PART B [id number] HOLLIE SHEPHERD PATIENT Selected Encounter This section includes the information on record at [place] for the Encounter. Date/Time Encounter Type Encounter Description Reason Provider Source Oct 10, 2023 02:30 PM OFFICE O/P EST HI 40 MIN DERMATOLOGY ICD-10-CM Z85.828 Personal history of other malignant neoplasm of skin JAHAIRA PENA Mikey Encounter Template Text not used by [place] Assessments - Encounter Diagnoses This section includes the primary and secondary diagnoses documented for the Encounter. Date/Time Primary/Secondary Diagnosis Diagnosis Name Provider Source November 04, 2023 09:57 AM PRIMARY Personal history of other malignant neoplasm of [facility] [place] [facility] November 04, 2023 09:57 AM SECONDARY Inflamed seborrheic keratosis GUSTAVO PENA [facility] [place] [facility] November 04, 2023 09:57 AM SECONDARY Neoplasm of uncertain behavior of skin GUSTAVO PENA [facility] [place] [facility] November 04, 2023 09:57 AM SECONDARY Other [facility]in [facility]ig[facility] [place] [facility] November 04, 2023 09:57 AM SECONDARY Other [facility]borrheic dermatitis [facility] [place] [facility] November 04, 2023 09:57 AM SECONDARY Other seborrheic keratosis [facility] [place] [facility] Plan of Treatment: Future Appointments (+ 6 months) and Future Tests (+/- 45 days) The Plan of Treatment section includes future care activities for the patient from all [place] treatmentfacilities. This section includes future appointments and future orders which are active, pending or scheduled. Future Appointments This section includes appointments that were scheduled to occur 6 months from the date of the Encounter, up to a maximum of 20 appointments. The data comes from all [place] treatment facilities. Appointment Date/Time Appointment Type Appointme nt Facility Name October 18, 2023 01:00 PM AMBULATORY - [facility]ICINE [facility] [place] [facility] November 01, 2023 10:30 AM AM[place] [facility] November 01, 2023 10:30 AM AMBULATORY - PS[facility]CHIATRY [facility] [place] [facility] November 01, 2023 11:15 AM AMBULATORY - MEDICINE [facility] [place] [facility] November 01, 2023 01:30 PM AMBULATORY - MEDICINE [facility] [place] [facility] November 02, 2023 11:15 AM AMBULATORY - MEDICINE [facility] [place] [facility] November 02, 2023 11:30 AM AMBULATORY - MEDICINE [facility] [place] [facility] November 06, 2023 02:50 PM AMBULATORY - MEDICINE [facility] [place] [facility] Nov 22, 2023 10:00 AM AMBULATORY - MEDICINE [facility] [place] [facility] Nov 27, 2023 02:00 PM AMBULATORY - MEDICINE [facility] [place] [facility] Feb 12, 2024 10:00 AM [facility]UL[facility] [place] [facility] Feb 28, 2024 01:00 PM [facility] [place] [facility] Feb 28, 2024 01:00 PM AMBULATORY - PSYCHIATRY [facility] [place] [facility] Mar 25, 2024 10:00 AM AMBULATORY [facility] MEDICINE [facility] [place] [facility] Mar 25, 2024 10:30 AM AMBULATORY - MEDICINE [facility] [place] [facility] Apr 02, 2024 02:00 PM AMBULATORY - MEDICINE [facility] [place] [facility] Apr 04, 2024 02:00 PM AMBULATORY - MEDICINE [facility] [place] [facility] Apr 08, 2024 01:00 PM [facility] Active, Pending, and Scheduled Orders This section includes a listing of several types of active, pending, and scheduled orders, including clinic medications orders, diagnostic test orders, procedure orders and consult orders; where the start date of the order is 45 days before the date of the Encounter or 45 days after the date of theEncounter. The data comes from all [place] treatment facilities. Test Date/Time Test Type Test Details Facility Name Oct 10, 2023 12:00 AM Laboratory - Chemi stry Order SURGICAL PATH ORDER SURG PATH SPEC. UNKNOWN SP [facility] Lab Results: +/- 30 days of [...] Range Comment Oct 11, 2023 01:27 PM [facility] MICROALBUMIN CREATININE RATIO PANEL Specimen Type: URINE No comment entered. Ordering Provider: ALLIE CUELLO Report Released Date/Time: Jul 26, 2023 10:12 AM Reporting Lab: [address] [address] Performing Lab: [address] [address] MICROALBUMIN/C REATININE RATIO 7.1 mg/g 0-29.9 MICROALBUMIN,Q UANTITATIVE 0.8 mg/dL RR UNAVAIL CREATININE URINE 113.29 mg/dL Oct 10, 2023 03:42 PM [facility] LIVER FUNCTION Specimen Type: SERUM Comment: *BASIC METABOLIC PANEL (fasting) Not Performed: Oct 10, 2023@15:51 b *[employer]ARD Reason: dup *LIPID PANEL FASTING Not Performed: Oct 10, 2023@15:51 by [id number] *S[employer] CR[employer]ING GUARD Reason: dup Ordering Provider: JUAN LUIS CAI Report Released Date/Time: Jun 05, 2023 11:22 AM Reporting Lab: [address] [address] Performing Lab: [address] [address] PROTEIN,TOTAL 6.0 g/dL 6.0-8.3 ALBUMIN 4.2 g/dL 3.5-5.0 ALKALINE PHOSPHATASE 89 U/L 40-150 AST 29 U/L 5-34 ALT 29 U/L BILIRUBIN, TOTAL 1.3 mg/dL H 0.2-1.2 BILIRUBIN, DIRECT 0.5 mg/dL 0-0.5 Oct 10, 2023 03:41 PM [facility] TESTOSTERONE, TOTAL (V) Specimen Type: SERUM No comment entered. Ordering Provider: ALLIE CUELLO Report Released Date/Time: Jul 26, 2023 10:12 AM Reporting Lab: [address] [address] Performing Lab: [address] [address] TESTOSTERONE, TOTAL (V) 755.20 ng/dL 220.00-892 .00 Oct 10, 2023 03:41 PM [facility] PSA Specimen Type: SERUM No comment entered. Ordering Provider: ALLIE CUELLO Report Released Date/Time: Jul 26, 2023 10:12 AM Reporting Lab: [address] [address] Performing Lab: [facility] [address] [facility] [address] PSA 4.74 ng/mL H 0.00-4.00 Oct 10, 2023 03:41 PM [facility] LIPID PANEL FASTING Specimen Type: SERUM No comment entered. Ordering Provider: ALLIE CUELLO Report Released Date/Time: Jul 26, 2023 10:12 AM Reporting Lab: [facility] [address] [facility] [address] Performing Lab: [facility] [address] [facility] [address] CHOLESTEROL 96 mg/dL TRIGLYCERIDE 101 mg/dL 0-150 LDL calculated 44 mg/dL 0-129 CHOL/HDL 3.0 HDL CHOLESTEROL 32 mg/dL L 40-60 Oct 10, 2023 03:41 PM [facility] HEMOGLOBIN A1C PANEL Specimen Type: [...] Jul 26, 2023 10:12 AM Reporting Lab: [facility] [address] [facility] [address] Performing Lab: [facility] [address] [facility] [address] HEMOGLOBIN A1C 6.7 H 4.0-5.6 Oct 10, 2023 03:41 PM [facility] CALCIUM Specimen Type: SERUM No comment entered. Ordering Provider: ALLIE CUELLO Report Released Date/Time: Oct 10, 2023 07:35 AM Reporting Lab: [facility] [address] [facility] [address] Performing Lab: [facility] [address] CALCIUM 9.1 mg/dL 8.5-10.2 Oct 10, 2023 03:41 PM [facility] VITAMIN D (25-OH) Specimen Type: SERUM No comment entered. Ordering Provider: ALLIE CUELLO Report Released Date/Time: Oct 10, 2023 07:35 AM Reporting Lab: [address] [address] Performing Lab: [address] [address] VITAMIN D (25-OH) 41 ng/mL 20-50 Oct 10, 2023 03:41 PM [facility] BASIC METABOLIC PANEL (fasting) Specimen Type: SERUM No comment entered. Ordering Provider: ALLIE CUELLO Report Released Date/Time: Jul 26, 2023 10:12 AM Reporting Lab: [address] [address] Performing Lab: [address] [address] UREA NITROGEN 22 mg/dL 7-25 GLUCOSE 172 mg/dL H 65-100 SODIUM 137 mmol/L 135-145 POTASSIUM 4.0 mmol/L 3.5-5.0 CHLORIDE 101 mmol/L 100-110 CO2 26 meq/L 20-30 CREATININE, Serum 1.26 mg/dL 0.50-1.40 eGFR(CKD-EPI 2020) 56 mL/min L >60 Oct 10, 2023 03:41 PM [facility] CBC Specimen Type: BLOOD No comment entered. Ordering Provider: ALLIE CUELLO Report Released Date/Time: Jul 26, 2023 10:12 AM Reporting Lab: [address] [address] Performing Lab: [address] [address] WBC 5.42 10*3/uL 4.50-11.00 RBC 4.87 10*6/uL 4.23-5.66 HGB 12.5 g/dL L 12.8-17 HCT 39.4 39.2-50.4 MCV 80.9 fL L 82-99 MCHC 31.7 g/dL 30.8-35.1 PLT 123 10*3/uL L 140-360 RDW-CV 14.7 12.0-16.0 MCH 25.7 pg L 26.2-32.6 Social History: Smoking Status (Most current) and Tobacco Use (All prior to encounter date) This section includes the most current, and the historical, smoking and tobacco- related health factors from the [place] facility where the Encounter took place. Current Smoking Status This section includes the most current smoking, or tobacco-related health factor, from the [place] facility where the Encounter took place. Date/Time Current Smoking Status Comment [facility] Jun 05, 2023 11:00 AM VA-TOBACCO FORMER USER [place] [facility] [place] [facility] Tobacco Use History This section includes a history of the smoking, or tobacco-related health factors, that were collected on or before the date of the Encounter. The data comes from the [place] facility where the Encounter took place. Date/Time Smoking Status/Tobac co Use Comment Facility Jun 05, 2023 11:00 AM VA-TOBACCO QUIT 15 YRS OR MORE [place] [facility] [place] [facility] Jun 06, 2022 01:00 PM VA-TOBACCO FORMER USER [place] [facility] [facility] Jun 06, 2022 01:00 PM VA-TOBACCO QUIT 15 YRS OR MORE [facility] [place] [facility] Jun 30, 2021 02:37 PM VA-TOBACCO FORMER USER [facility] [place] [facility] Jun 30, 2021 02:37 PM VA-TOBACCO QUIT 5 TO < 15 YRS [place] [facility] [place] [facility] May 22, 2020 03:30 PM VA-TOBACCO NEVER USED [place] [facility] [place] [facility] May 08, 2018 02:03 PM VA-TOBACCO FORMER USER [facility] [place] [facility] May 08, 2018 02:03 PM VA-TOBACCO QUIT 15 YRS OR MORE [facility] [place] [facility] November 10, 2017 02:33 PM QUIT TOBACCO USE > 7 YEARS AGO [facility] [place] [facility] October 21, 2016 01:55 PM QUIT TOBACCO USE > 7 YEARS AGO [facility] [place] [facility] Sep 18, 2015 11:24 AM QUIT TOBACCO USE > 7 YEARS AGO stopped 50 years ago [facility] May 19, 2005 08:01 AM HISTORY OF SMOKING [facility] May 31, 2004 01:02 PM HISTORY OF SMOKING [facility] Jun 04, 2003 07:57 AM HISTORY OF SMOKING [facility] Jun 03, 2002 01:11 PM HISTORY OF SMOKING [facility] Jun 03, 2002 01:11 PM QUIT TOBACCO USE > 7 YEARS AGO [facility] Advance Directives: All historical and current Section Date Range: From patient's date of to the date document was created. This section includes ALL of a patient's completed or amended [place] Advance and Rescinded Directives. The entries below indicate that a directive exists for the patient, but an actual copy is not included with this document. The data comes from all [place] facilities. Date Advance Directives Provider Source Jun 02, 2023 ADVANCE DIRECTIVE JENNIFER QUIROS [facility] Pathology Reports: +/- 30 days of the [...] the Encounter. The data comes from all [place] treatment facilities. Date/Time Pathology Report Provider Source Oct 12, 2023 10:54 AM LR SURGICAL PATHOLOGY REPORT: LOCAL TITLE: LR SURGICAL PATHOLOGY REPORT STANDARD TITLE: PATHOLOGY DIAGNOSTIC STUDY REPORT DATE OF NOTE: OCT 12, 2023@10:54:23 ENTRY DATE: OCT 12, 2023@10:54:23 AUTHOR: LESTER ANDERSON MD EXP COSIGNER: URGENCY: STATUS: COMPLETED $APHDR Reporting Lab: [facility] [CLIA# [id number]] [address] [place] [id number] - - - - - - - [...] - - - PATHOLOGY REPORT [facility] 174 - - - - - [...] - - - PATHOLOGY REPORT Accession No. [facility] 24 174 - - - - - - - - - - - - - - - - - - - - - - - - - - - - - - - - - - - - - - - - Gross description: [facility] 24 1298;A;1;Nisa SHEPHERD This is a [facility] case number [facility] 24 [id number]. Received in formalin [...] lateral and deep tissue margins. CPT codes 78396o9 /es/ LESTER ANDERSON MD Board Certified Dermatopathologist Signed Oct 12, 2023@10:54 Performing Laboratory: Surgical Pathology Report Performed By: [facility] [CLIA# [id number]] [address] [place] [id number] $FTR - - - - - - [...] - - BEBO SHEPHERD STANDARD FORM 515 ID:[id number] SEX:M :1940 AGE: 83 LOC:CWM/NO/CVT/DERMATOLOGY/N P PCP: RUBY Long /thomas/ LESTER ANDERSON MD Board Certified Dermatopathologist Signed: 10/12/2023 10:54 LESTER ANDERSON MD [facility] Encounter Notes: All associated encounter notes This section contains the clinical notes associated to the Encounter. 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 His UPPER FOREHEAD biopsy returned as (at least) a pre-cancerous lesion called actinic keratosis, we will use liquid nitrogen to treat this lesion at next follow up, sooner if needed. LAB SURGICAL PATHOLOGY Collected: 10/10/2023 13:00Acc:SPA 24 Surgeon/Physician: VEGA PENA Specimen: SKIN OF CENTRAL UPPER FOREHEAD SKIN OF R TEMPORAL SCALP Brief Clinical Hx: SP 174 SPECIMEN A: CENTRAL UPPER FOREHEAD 1CM ERYTHERMATOUS PAPULE SPECIMEN B: R TEMPORAL SCALP 3CM HYPERPIGMENTED PLAQUE Gross Description: [facility] 24 8768;A;1;Nisa SHEPHERD This is a [facility] case number [facility] [id number]. Received in formalin [...] follows: B1: Tips B2: Body JK 10/11/2023 Microscopic Exam: A. Skin, central upper forehead: Hypertrophic actinic keratosis. Note: The base of the lesion is inadequately represented [multiple tissue levels examined]. Given this, squamous cell carcinoma cannot be entirely excluded. Clinicopathologic correlation is recommended. B. Skin, right temporal scalp: Pigmented seborrheic keratosis, extending to the lateral and deep tissue margins. CPT codes [id number] /es/ VEGA PENA DNP, THERAPY TECHNICIAN-C NURSE PRACTITIONER Signed: 10/16/2023 08:30 Receipt Acknowledged By: 10/23/2023 11:56 /es/ TODD GALLOWAY LPN PROGRESS MAN --- Original Document --- 10/10/23 DERMATOLOGY CLINIC NOTE: OCT 10, 2023 BEBO SHEPHERD [birth year] PATIENT PHONE - Patient here for FOLLOW UP CHIEF COMPLAINT: h/o BCC, AKs HPI: Reviewed records from last Dermatology visit: 04/04/23 and 07/13/23; ISKs s/p LN2 and [facility] D[facility] treated with keto shampoo and cream. He reports improvement in skin condition after treatment. Reports a red spot on central forehead that scabs and doesn't heal. denies any other new/changing/bleeding/non-he aling lesions. REVIEW [...] HYDROBROMIDE 20MG TAB TAKE ONE-HALF TABLET ACTIVE (S) BY MOUTH ONCE DAILY FOR MOOD 4) HYDROXYCHLOROQUINE SULFATE 200MG TAB TAKE ONE [...] THE MORNING AND EVENING, WITH FOOD 9) NEEDLE 18G 1IN USE 1 NEEDLE EVERY 7 DAYS FOR ACTIVE INJECTION 10) NEEDLE 23G 1IN USE 1 NEEDLE EVERY 7 DAYS FOR ACTIVE INJECTION 11) PREDNISONE 10MG TAB TAKE ONE TABLET BY MOUTH ONCE ACTIVE DAILY 12) PREDNISONE 1MG TAB TAKE ONE TABLET BY MOUTH ONCE ACTIVE DAILY 13) SYRINGE 1ML LUER LOCK TIP USE 1 SYRINGE EVERY 7 DAYS ACTIVE 14) TAMSULOSIN HCL 0.4MG CAP TAKE ONE CAPSULE BY MOUTH AT ACTIVE (S) BEDTIME FOR ENLARGED PROSTATE 15) TESTOSTERONE CYP 200MG/ML 1ML IN OIL INJECT 0.3ML ACTIVE (60MG) INTRAMUSCULARLY EVERY 7 DAYS FOR LOW TESTOSTERONE 16) TOCILIZUMAB 162MG/0.9ML INJ SYR 0.9ML INJECT [...] noted to bilateral nasolabial folds, and jensen --lesions of concern: -A-upper central forehead 1 cm erythematous papule -B-R temporal scalp 3 cm hyperpigmented plaque with fissures/ridges on dermoscopy, some areas of darker pigmentation noted. Diagnosis/Plan: #Personal History of Non-Melanotic Skin Cancer: -No evidence of recurrence at surgical site -Full Body Skin Exam advised yearly -Photoprotection discussed -Patient instructed to follow up in clinic for any concerning lesions or changes #Neoplasm of Uncertain Behavior -Sites: A, central forehead, B. R parietal scalp -Biopsy advised; DDx: A r/o SCC, B. SK vs MM ##Shave Biopsy Procedure: -The purpose, benefits, risks (infection, bleeding and scar) and alternatives of the procedures were discussed. -Verbal informed consent was obtained. Patient consents to pictures to be taken for documentation. -The surgical sites were confirmed with the patient. Time out was implemented to confirm patient's name, date of , location of the lesion and indication for the biopsy with PROGRESS MAN [place] -Biopsy sites were swabbed with alcohol. -Anesthesia achieved by local infiltration of lesion with 1% lidocaine with epinephrine 1:100,000. -A tangential shave specimen was taken from each site to the depth of the dermis using a flexible dermablade. -Hemostasis was achieved with aluminum chloride (Drysol). -Routine wound care was performed and a dressing was applied using Vaseline and a Bandage. -The patient tolerated the procedures well without complications. -Wound care was reviewed and a printed copy was given to the patient. -Plan of care to be discussed once biopsy results return. -Discussed with that if results are benign (non-cancerous), a letter will be mailed indicating this and that no further treatment is required. -Advised that if they do not receive a letter or a phone call within 2-3 weeks, to reach out to clinic and inquire on biopsy results. #Seborrheic Keratoses, Irritated -The [place] was educated regarding the benign nature, but given irritation/pain, destructive treatment requested. -Liquid nitrogen cryotherapy performed as a destructive method. -Liquid nitrogen (2 cycles x 5-8sec) x #4 lesions performed. -Side effects including but not [...] or symptoms in area. -Photoprotection discussed. #Seborrheic Dermatitis -Discussed with that this is a chronic inflammatory skin disorder usually characterized by erythema and scaling of the scalp, nasolabial folds, glabella and occasionally central face and anterior chest. -Continue ketoconazole shampoo and cream as prescribed RTC 6m, sooner PRN * educated to RTC ivanna [...] = Neoplasm of Uncertain Behavior of Skin ------TIME ESTIMATION To include but not limied to: -Review of medical records -Time spent with patient including obtaining history, physical exam, shared decision making, procedures and counseling -Post visit documentation; HPI and physical exam findings, clinical researching, medical decision making, medication and lab ordering Total estimated time = 40 min ----- Medication Reconciliation: Outpatient: Has the patient been taking medications as documented in the EMLR? YES: The patient has been taking medications as documented in the EMLR. Essential Medication List for Review used to complete this medication reconciliation. INCLUDED IN THIS LIST: Alphabetical list of active outpatient prescriptions dispensed from this [facility] (local) and dispensed from another [place] or [place] facility (remote) as well as [...] Remote Allergy/ADR Data available for this patient [facility] [place] [facility] [place] [facility] PENICILLIN [place] [facility] [place] [facility] ZOSYN Med Recon NoGlossary (Tool #1) INCLUDED IN THIS LIST: Alphabetical list of active outpatient prescriptions dispensed from this [place] (local) and dispensed from another [place] or [place] facility (remote) as well as inpatient orders (local pending and active), local clinic medications, locally documented non-VA medications, and local prescriptions that have or been discontinued in the past 90 days. Non-VA Meds Last Documented On: Oct 09, 2023 NOTE The display of VA prescriptions dispensed from another VA or DoD facility (remote) is limited to active outpatient prescription entries matched to National Drug File at the originating site and may not include some items such as investigational drugs, compounds, etc. NOT INCLUDED IN THIS LIST: Medications self-entered by the patient into personal health records (i.e. [employer]) are NOT included in this list. Non-VA medications documented outside this [place], remote inpatient orders (regardless of status) and remote clinic medications are NOT included in this list. The patient and provider must always discuss medications the patient is taking, regardless of where the medication was dispensed or obtained. Non-VA ACETAMINOPHEN TAB TAKE BY MOUTH ONCE DAILY NEEDED Non-VA AMLODIPINE BESYLATE 2.5MG TAB TAKE ONE TABLET BY MOUTH ONCE DAILY Non-VA ASPIRIN 81MG EC TAB TAKE ONE TABLET BY MOUTH ONCE DAILY OUTPT ATORVASTATIN CALCIUM 80MG TAB (Status = Active) TAKE ONE-HALF TABLET BY MOUTH ONCE DAILY Rx# [id number] Last Released: 10/06/23 Qty/Days Supply: 45 Rx Expiration Date: 04/26/24 Refills Remainin Indication: FOR HIGH CHOLESTEROL OUTPT CALCIUM 200MG (CA CITRATE-950MG) TAB (Status = Active) TAKE FOUR TABLETS BY MOUTH TWICE DAILY Rx# [id number] Last Released: 10/04/23 Qty/Days Supply: Rx Expiration Date: 04/26/24 Refills Remainin Indication: FOR OSTEOPOROSIS Non-VA CHOLECALCIF 50MCG (D3-2,000UNIT) TAB TAKE ONE TABLET BY MOUTH ONCE DAILY Aug 11, 2020 Non-VA medication not recommended by VA provider. OUTPT CITALOPRAM HYDROBROMIDE 20MG TAB (Status = Discontinued) TAKE ONE-HALF TABLET BY MOUTH ONCE DAILY FOR MOOD Rx# [id number] Last Released: 07/21/23 Qty/Days Supply: Rx Expiration Date: 09/29/23 Refills Remainin Indication: FOR MAJOR DEPRESSIVE DISORDER OUTPT CITALOPRAM HYDROBROMIDE 20MG TAB (Status = Active/Suspended) TAKE ONE-HALF TABLET BY MOUTH ONCE DAILY FOR MOOD Rx# [id number] Last Released: QtyDays Supply: Rx Expiration Date: 10/10/24 Refills Remainin Indication: FOR MAJOR DEPRESSIVE DISORDER Non-VA CYCLOBENZAPRINE HCL 10MG TAB TAKE ONE TABLET BY MOUTH TWICE DAILY Non-VA DOCUSATE NA 100MG CAP TAKE 1 CAPSULE BY MOUTH TWICE DAILY Non-VA FUROSEMIDE 20MG TAB TAKE ONE TABLET BY MOUTH ONCE DAILY OUTPT GABAPENTIN 600MG TAB (Status = ) TAKE ONE TABLET BY MOUTH THREE TIMES A DAY Rx# [id number] Last Released: 07/21/23 Qty/Days Supply: 270 Rx Expiration Date: 10/09/23 Refills Remainin OUTPT HYDROXYCHLOROQUINE SULFATE 200MG TAB (Status = Active) TAKE ONE TABLET BY MOUTH ONCE DAILY Rx# [id number] Last Released: 04/20/23 Qty/Days Supply: 90 Rx Expiration Date: 02/11/24 Refills Remainin OUTPT INSULIN,ASPART,HUMAN 100 UNIT/ML INJ (Status = Active) INJECT 80 UNITS SUBCUTANEOUSLY EVERY DAY DIRECTED FOR USE WITH CONTINUOUS SUBCUTANEOUS INSULIN INFUSION DEVICE Rx# [id number] Last Released: 08/02/23 Qty/Days Supply: Rx Expiration Date: 04/17/24 Refills Remainin OUTPT KETOCONAZOLE 2% CREAM (Status = Active) APPLY A THIN LAYER TOPICALLY TWICE DAILY RASH APPLY TO AFFECTED AREAS ON FACE TWICE DAILY FOR 4 WEEKS, THEN NEEDED Rx# [id number] Last Released: 07/21/23 Qty/Days Supply: 12030 Rx Expiration Date: 07/13/24 Refills Remainin Indication: RASH OUTPT KETOCONAZOLE 2% SHAMPOO (Status = Active) SHAMPOO SMALL AMOUNT TOPICALLY TWICE A WEEK NEEDED APPLY FOR 8 WEEKS, THEN NEEDED Rx# [id number] Last Released: 07/21/23 Qty/Days Supply: 30 Rx Expiration Date: 07/13/24 Refills Remainin Indication: SCALP RASH Non-VA LOSARTAN 100MG TAB TAKE ONE TABLET BY MOUTH DAILY OUTPT MULTIVIT/OPHTH AREDS2/LUTE/ZEAX CAP/TAB (Status = Active) TAKE 1 CAPSULE BY MOUTH TWICE DAILY IN THE MORNING AND EVENING, WITH FOOD Rx# [id number] Last Released: 07/05/23 Qty/Days Supply: 120/60 Rx Expiration Date: 03/29/24 Refills Remainin Non-VA OMEPRAZOLE 20MG EC CAP TAKE 1 CAPSULE BY MOUTH EVERY DAY Non-VA PILOCARPINE HCL 5MG TAB TAKE ONE TABLET BY MOUTH TWICE DAILY Dec 04, 2020 Non-VA medication not recommended by VA provider. OUTPT PREDNISONE 10MG TAB (Status = Active) TAKE ONE TABLET BY MOUTH ONCE DAILY Rx# [id number] Last Released: 02/08/23 Qty/Days Supply: 6060 Rx Expiration Date: 12/08/23 Refills Remainin OUTPT PREDNISONE 1MG TAB (Status = Active) TAKE ONE TABLET BY MOUTH ONCE DAILY Rx# [id number] Last Released: 10/04/23 Qty/Days Supply: 60/60 Rx Expiration Date: 06/21/24 Refills Remainin OUTPT PREDNISONE 5MG TAB (Status = ) TAKE 1 TABLET (5 MG) BY MOUTH ONCE DAILY IN COMBINATION WITH 1MG TABLETS TO TAKE 9 MG DAILY FOR 2 WEEKS, THEN REDUCE BY 1 MG EVERY 2 WEEKS Rx# [id number] Last Released: 05/04/23 Qty/Days Supply: Rx Expiration Date: 07/31/23 Refills Remainin OUTPT TAMSULOSIN HCL 0.4MG CAP (Status = Discontinued) TAKE ONE CAPSULE BY MOUTH AT BEDTIME FOR ENLARGED PROSTATE Rx# [id number] Last Released: 09/13/23 Qty/Days Supply: Rx Expiration Date: 04/12/24 Refills Remainin Indication: FOR ENLARGED PROSTATE OUTPT TAMSULOSIN HCL 0.4MG CAP (Status = Active/Suspended) TAKE ONE CAPSULE BY MOUTH AT BEDTIME FOR ENLARGED PROSTATE Rx# [id number] Last Released: Supply: Rx Expiration Date: 10/10/24 Refills Remainin Indication: FOR ENLARGED PROSTATE OUTPT TESTOSTERONE CYP 200MG/ML 1ML IN OIL (Status = Discontinued) INJECT 0.3ML (60MG) INTRAMUSCULARLY EVERY 7 DAYS FOR LOW TESTOSTERONE Rx# [id number] Last Released: 07/10/23 Qty/Days Supply: 10/14 Rx Expiration Date: 10/28/23 Refills Remainin Indication: FOR LOW TESTOSTERONE OUTPT TESTOSTERONE CYP 200MG/ML 1ML IN OIL (Status = Active) INJECT 0.3ML (60MG) INTRAMUSCULARLY EVERY 7 DAYS FOR LOW TESTOSTERONE Rx# [id number] Last Released: 10/09/23 Qty/Days Supply: 10/14 Rx Expiration Date: 01/26/24 Refills Remainin Indication: FOR LOW TESTOSTERONE OUTPT TOCILIZUMAB 162MG/0.9ML INJ SYR 0.9ML (Status = Discontinued) INJECT 162MG SUBCUTANEOUSLY EVERY 2 WEEKS Rx# [id number] Last Released: 08/02/23 Qty/Days Supply: 08/16 Rx Expiration Date: 06/07/24 Refills Remainin OUTPT TOCILIZUMAB 162MG/0.9ML INJ SYR 0.9ML (Status = Active) INJECT 162MG SUBCUTANEOUSLY EVERY 2 WEEKS Rx# [id number] Last Released: 09/28/23 Qty/Days Supply: 08/16 Rx Expiration Date: 08/28/24 Refills Remainin SUPPLIES OUTPT ALCOHOL PREP PAD (Status = ) USE 1 PAD TOPICALLY EVERY 7 DAYS TO CLEAN SKIN FOR INJECTION ETC Rx# [id number] Last Released: 05/05/23 Qty/Days Supply: Rx Expiration Date: 07/26/23 Refills Remainin OUTPT NEEDLE 18G 1IN (Status = Active) USE 1 NEEDLE EVERY 7 DAYS FOR INJECTION Rx# [id number] Last Released: 07/21/23 Qty/Days Supply: Rx Expiration Date: 04/27/24 Refills Remainin OUTPT NEEDLE 23G 1IN (Status = Active) USE 1 NEEDLE EVERY 7 DAYS FOR INJECTION Rx# [id number] Last Released: 07/20/23 Qty/Days Supply: Rx Expiration Date: 04/27/24 Refills Remainin OUTPT SYRINGE 1ML LUER LOCK TIP (Status = Active) USE 1 SYRINGE EVERY 7 DAYS Rx# [id number] Last Released: 07/13/23 Qty/Days Supply: Rx Expiration Date: 04/27/24 Refills Remainin OUTPT SYRINGE 2.5-3ML/NDL 22G 1.5IN SAFETY (Status = ) USE 1 SYRINGE EVERY THIRD DAY Rx# [id number] Last Released: 04/27/23 Qty/Days Supply: Rx Expiration Date: 07/25/23 Refills Remainin /thomas/ VEGA PENA DNP, THERAPY TECHNICIAN-C NURSE PRACTITIONER Signed: 10/10/2023 15:11 10/19/2023 ADDENDUM STATUS: COMPLETED VM left to return call for biopsy results. /thomas/ TODD GALLOWAY LPN LPN Signed: 10/19/2023 08:48 VEGA PENA [place] [facility] Oct 10, 2023 02:41 PM DERMATOLOGY OUTPATIENT NOTE: LOCAL TITLE: DERMATOLOGY CLINIC NOTE STANDARD TITLE: DERMATOLOGY OUTPATIENT NOTE DATE OF NOTE: OCT 10, 2023@14:41 ENTRY DATE: OCT 10, 2023@14:41:13 AUTHOR: VEGA PENA EXP COSIGNER: URGENCY: STATUS: COMPLETED DERMATOLOGY CLINIC NOTE Has ADDENDA OCT 10, 2023 BEBO SHEPHERD Feb 85 PATIENT PHONE - Patient here for FOLLOW UP CHIEF COMPLAINT: h/o BCC, AKs HPI: Reviewed records from last Dermatology visit: 04/04/23 and 07/13/23; ISKs s/p LN2 and [facility] treated with keto shampoo and cream. He reports improvement in skin condition after treatment. Reports a red spot on central forehead that scabs and doesn't heal. [place] denies any other new/changing/bleeding/non-he aling lesions. REVIEW [...] HYDROBROMIDE 20MG TAB TAKE ONE-HALF TABLET ACTIVE (S) BY MOUTH ONCE DAILY FOR MOOD 4) HYDROXYCHLOROQUINE SULFATE 200MG TAB TAKE ONE [...] THE MORNING AND EVENING, WITH FOOD 9) NEEDLE 18G 1IN USE 1 NEEDLE EVERY 7 DAYS FOR ACTIVE INJECTION 10) NEEDLE 23G 1IN USE 1 NEEDLE EVERY 7 DAYS FOR ACTIVE INJECTION 11) PREDNISONE 10MG TAB TAKE ONE TABLET BY MOUTH ONCE ACTIVE DAILY 12) PREDNISONE 1MG TAB TAKE ONE TABLET BY MOUTH ONCE ACTIVE DAILY 13) SYRINGE 1ML LUER LOCK TIP USE 1 SYRINGE EVERY 7 DAYS ACTIVE 14) TAMSULOSIN HCL 0.4MG CAP TAKE ONE CAPSULE BY MOUTH AT ACTIVE (S) BEDTIME FOR ENLARGED PROSTATE 15) TESTOSTERONE CYP 200MG/ML 1ML IN OIL INJECT 0.3ML ACTIVE (60MG) INTRAMUSCULARLY EVERY 7 DAYS FOR LOW TESTOSTERONE 16) TOCILIZUMAB 162MG/0.9ML INJ SYR 0.9ML INJECT [...] noted to bilateral nasolabial folds, and jensen --lesions of concern: -A-upper central forehead 1 cm erythematous papule -B-R temporal scalp 3 cm hyperpigmented plaque with fissures/ridges on dermoscopy, some areas of darker pigmentation noted. Diagnosis/Plan: #Personal History of Non-Melanotic Skin Cancer: -No evidence of recurrence at surgical site -Full Body Skin Exam advised yearly -Photoprotection discussed -Patient instructed to follow up in clinic for any concerning lesions or changes #Neoplasm of Uncertain Behavior -Sites: A, central forehead, B. R parietal scalp -Biopsy advised; DDx: A r/o SCC, B. SK vs MM ##Shave Biopsy Procedure: -The purpose, benefits, risks (infection, bleeding and scar) and alternatives of the procedures were discussed. -Verbal informed consent was obtained. Patient consents to pictures to be taken for documentation. -The surgical sites were confirmed with the patient. Time out was implemented to confirm patient's name, date of , location of the lesion and indication for the biopsy with NANCY Pastranaler -Biopsy sites were swabbed with alcohol. -Anesthesia achieved by local infiltration of lesion with 1% lidocaine with epinephrine 1:100,000. -A tangential shave specimen was taken from each site to the depth of the dermis using a flexible dermablade. -Hemostasis was achieved with aluminum chloride (Drysol). -Routine wound care was performed and a dressing was applied using Vaseline and a Bandage. -The patient tolerated the procedures well without complications. -Wound care was reviewed and a printed copy was given to the patient. -Plan of care to be discussed once biopsy results return. -Discussed with that if results are benign (non-cancerous), a letter will be mailed indicating this and that no further treatment is required. -Advised that if they do not receive a letter or a phone call within 2-3 weeks, to reach out to clinic and inquire on biopsy results. #Seborrheic Keratoses, Irritated -The [place] was educated regarding the benign nature, but given irritation/pain, destructive treatment requested. -Liquid nitrogen cryotherapy performed as a destructive method. -Liquid nitrogen (2 cycles x 5-8sec) x #4 lesions performed. -Side effects including but not limited to redness, crusting, swelling, blistering, scarring, and hypopigmentation discussed. -Wound care discussed in length. #Seborrheic Keratoses: -The [place] was educated regarding the benign nature, but to return with any growth, change or symptoms in area. #Solar Lentigines -The was educated regarding the benign nature and relation to chronic sun exposure, but to return with any growth, change or symptoms in area. -Photoprotection discussed. #Seborrheic Dermatitis -Discussed with that this is a chronic inflammatory skin disorder usually characterized by erythema and scaling of the scalp, nasolabial folds, glabella and occasionally central face and anterior chest. -Continue ketoconazole shampoo and cream as prescribed RTC 6m, sooner PRN * educated to RTC ivanna if any new, changing, symptomatic lesions. * Education on sun protection and avoidance strategies was provided. * Differential diagnosis, prescription options and risks/benefits were discussed with the patient, who consented to treatment plan. * [place] consented to photography for documentation if indicated. * A dermatoscope was used during the exam. * NUB = Neoplasm of Uncertain Behavior of Skin ------TIME ESTIMATION To include but not limied to: -Review of medical records -Time spent with patient including obtaining history, physical exam, shared decision making, procedures and counseling -Post visit documentation; HPI and physical exam findings, clinical researching, medical decision making, medication and lab ordering Total estimated time = 40 min ----- Medication Reconciliation: Outpatient: Has the patient been taking medications as documented in the EMLR? YES: The patient has been taking medications as documented in the EMLR. Essential Medication List for Review used to complete this medication reconciliation. INCLUDED IN THIS LIST: Alphabetical list of active outpatient prescriptions dispensed from this [place] (local) and dispensed from another [place] or [facility] facility (remote) as well as inpatient orders [...] list may not be complete. Please check [employer]. Allergies/ADRs (Tool #5) FACILITY ALLERGY/ADR -------- No Remote Allergy/ADR Data available for this patient [facility] [place] [facility] [place] [facility] [place] [facility] ZOSYN Med Recon NoGlossary (Tool #1) INCLUDED IN THIS LIST: Alphabetical list of active outpatient prescriptions dispensed from this [place] (local) and dispensed from another [place] or [facility] facility (remote) as well as inpatient orders (local pending and active), local clinic medications, locally documented non-VA medications, and local prescriptions that have or been discontinued in the past 90 days. Non-VA Meds Last Documented On: Oct 09, 2023 NOTE The display of VA prescriptions dispensed from another [place] or [facility] facility (remote) is limited to active outpatient prescription entries matched to National Drug File at the originating site and may not include some items such as investigational drugs, compounds, etc. NOT INCLUDED IN THIS LIST: Medications self-entered by the patient into personal health records (i.e. [employer]) are NOT included in this list. Non-VA medications documented outside this [place], remote inpatient orders (regardless of status) and remote clinic medications are NOT included in this list. The patient and provider must always discuss medications the patient is taking, regardless of where the medication was dispensed or obtained. Non-VA ACETAMINOPHEN TAB TAKE BY MOUTH ONCE DAILY NEEDED Non-VA AMLODIPINE BESYLATE 2.5MG TAB TAKE ONE TABLET BY MOUTH ONCE DAILY Non-VA ASPIRIN 81MG EC TAB TAKE ONE TABLET BY MOUTH ONCE DAILY OUTPT ATORVASTATIN CALCIUM 80MG TAB (Status = Active) TAKE ONE-HALF TABLET BY MOUTH ONCE DAILY Rx# [id number] Last Released: 10/06/23 Qty/Days Supply: 45 Rx Expiration Date: 04/26/24 Refills Remainin Indication: FOR HIGH CHOLESTEROL OUTPT CALCIUM 200MG (CA CITRATE-950MG) TAB (Status = Active) TAKE FOUR TABLETS BY MOUTH TWICE DAILY Rx# [id number] Last Released: 10/04/23 Qty/Days Supply: 720/90 Rx Expiration Date: 04/26/24 Refills Remainin Indication: FOR OSTEOPOROSIS Non-VA CHOLECALCIF 50MCG (D3-2,000UNIT) TAB TAKE ONE TABLET BY MOUTH ONCE DAILY Aug 11, 2020 Non-VA medication not recommended by VA provider. OUTPT CITALOPRAM HYDROBROMIDE 20MG TAB (Status = Discontinued) TAKE ONE-HALF TABLET BY MOUTH ONCE DAILY FOR MOOD Rx# [id number] Last Released: 07/21/23 Qty/Days Supply: 45 Rx Expiration Date: 09/29/23 Refills Remainin Indication: FOR MAJOR DEPRESSIVE DISORDER OUTPT CITALOPRAM HYDROBROMIDE 20MG TAB (Status = Active/Suspended) TAKE ONE-HALF TABLET BY MOUTH ONCE DAILY FOR MOOD Rx# [id number] Last Released: Qt Supply: Rx Expiration Date: 10/10/24 Refills Remainin Indication: FOR MAJOR DEPRESSIVE DISORDER Non-VA CYCLOBENZAPRINE HCL 10MG TAB TAKE ONE TABLET BY MOUTH TWICE DAILY Non-VA DOCUSATE NA 100MG CAP TAKE 1 CAPSULE BY MOUTH TWICE DAILY Non-VA FUROSEMIDE 20MG TAB TAKE ONE TABLET BY MOUTH ONCE DAILY OUTPT GABAPENTIN 600MG TAB (Status = ) TAKE ONE TABLET BY MOUTH THREE TIMES A DAY Rx# [id number] Last Released: 07/21/23 Qty/Days Supply: Rx Expiration Date: 10/09/23 Refills Remainin OUTPT HYDROXYCHLOROQUINE SULFATE 200MG TAB (Status = Active) TAKE ONE TABLET BY MOUTH ONCE DAILY Rx# [id number] Last Released: 04/20/23 Qty/Days Supply: Rx Expiration Date: 02/11/24 Refills Remainin OUTPT INSULIN,ASPART,HUMAN 100 UNIT/ML INJ (Status = Active) INJECT 80 UNITS SUBCUTANEOUSLY EVERY DAY DIRECTED FOR USE WITH CONTINUOUS SUBCUTANEOUS INSULIN INFUSION DEVICE Rx# [id number] Last Released: 08/02/23 Qty/Days Supply: Rx Expiration Date: 04/17/24 Refills Remainin OUTPT KETOCONAZOLE 2% CREAM (Status = Active) APPLY A THIN LAYER TOPICALLY TWICE DAILY RASH APPLY TO AFFECTED AREAS ON FACE TWICE DAILY FOR 4 WEEKS, THEN NEEDED Rx# [id number] Last Released: 07/21/23 Qty/Days Supply: 120 Rx Expiration Date: 07/13/24 Refills Remainin Indication: RASH OUTPT KETOCONAZOLE 2% SHAMPOO (Status = Active) SHAMPOO SMALL AMOUNT TOPICALLY TWICE A WEEK NEEDED APPLY FOR 8 WEEKS, THEN NEEDED Rx# [id number] Last Released: 07/21/23 Qty/Days Supply: 240 Rx Expiration Date: 07/13/24 Refills Remainin Indication: SCALP RASH Non-VA LOSARTAN 100MG TAB TAKE ONE TABLET BY MOUTH DAILY OUTPT MULTIVIT/OPHTH AREDS2/LUTE/ZEAX CAP/TAB (Status = Active) TAKE 1 CAPSULE BY MOUTH TWICE DAILY IN THE MORNING AND EVENING, WITH FOOD Rx# [id number] Last Released: 07/05/23 Qty/Days Supply: 120/60 Rx Expiration Date: 03/29/24 Refills Remainin Non-VA OMEPRAZOLE 20MG EC CAP TAKE 1 CAPSULE BY MOUTH EVERY DAY Non-VA PILOCARPINE HCL 5MG TAB TAKE ONE TABLET BY MOUTH TWICE DAILY Dec 04, 2020 Non-VA medication not recommended by VA provider. OUTPT PREDNISONE 10MG TAB (Status = Active) TAKE ONE TABLET BY MOUTH ONCE DAILY Rx# [id number] Last Released: 02/08/23 Qty/Days Supply: 6060 Rx Expiration Date: 12/08/23 Refills Remainin OUTPT PREDNISONE 1MG TAB (Status = Active) TAKE ONE TABLET BY MOUTH ONCE DAILY Rx# [id number] Last Released: 10/04/23 Qty/Days Supply: 60/60 Rx Expiration Date: 06/21/24 Refills Remainin OUTPT PREDNISONE 5MG TAB (Status = ) TAKE 1 TABLET (5 MG) BY MOUTH ONCE DAILY IN COMBINATION WITH 1MG TABLETS TO TAKE 9 MG DAILY FOR 2 WEEKS, THEN REDUCE BY 1 MG EVERY 2 WEEKS Rx# [id number] Last Released: 05/04/23 Qty/Days Supply: Rx Expiration Date: 07/31/23 Refills Remainin OUTPT TAMSULOSIN HCL 0.4MG CAP (Status = Discontinued) TAKE ONE CAPSULE BY MOUTH AT BEDTIME FOR ENLARGED PROSTATE Rx# [id number] Last Released: 09/13/23 Qty/Days Supply: Rx Expiration Date: 04/12/24 Refills Remainin Indication: FOR ENLARGED PROSTATE OUTPT TAMSULOSIN HCL 0.4MG CAP (Status = Active/Suspended) TAKE ONE CAPSULE BY MOUTH AT BEDTIME FOR ENLARGED PROSTATE Rx# [id number] Last Released: Qty/Days Supply: Rx Expiration Date: 10/10/24 Refills Remainin Indication: FOR ENLARGED PROSTATE OUTPT TESTOSTERONE CYP 200MG/ML 1ML IN OIL (Status = Discontinued) INJECT 0.3ML (60MG) INTRAMUSCULARLY EVERY 7 DAYS FOR LOW TESTOSTERONE Rx# [id number] Last Released: 07/10/23 Qty/Days Supply: 10/14 Rx Expiration Date: 10/28/23 Refills Remainin Indication: FOR LOW TESTOSTERONE OUTPT TESTOSTERONE CYP 200MG/ML 1ML IN OIL (Status = Active) INJECT 0.3ML (60MG) INTRAMUSCULARLY EVERY 7 DAYS FOR LOW TESTOSTERONE Rx# [id number] Last Released: 10/09/23 Qty/Days Supply: 10/14 Rx Expiration Date: 01/26/24 Refills Remainin Indication: FOR LOW TESTOSTERONE OUTPT TOCILIZUMAB 162MG/0.9ML INJ SYR 0.9ML (Status = Discontinued) INJECT 162MG SUBCUTANEOUSLY EVERY 2 WEEKS Rx# [id number] Last Released: 08/02/23 Qty/Days Supply: 08/16 Rx Expiration Date: 06/07/24 Refills Remainin OUTPT TOCILIZUMAB 162MG/0.9ML INJ SYR 0.9ML (Status = Active) INJECT 162MG SUBCUTANEOUSLY EVERY 2 WEEKS Rx# [id number] Last Released: 09/28/23 Qty/Days Supply: 08/16 Rx Expiration Date: 08/28/24 Refills Remainin SUPPLIES OUTPT ALCOHOL PREP PAD (Status = ) USE 1 PAD TOPICALLY EVERY 7 DAYS TO CLEAN SKIN FOR INJECTION ETC Rx# [id number] Last Released: 05/05/23 Qty/Days Supply: Rx Expiration Date: 07/26/23 Refills Remainin OUTPT NEEDLE 18G 1IN (Status = Active) USE 1 NEEDLE EVERY 7 DAYS FOR INJECTION Rx# [id number] Last Released: 07/21/23 Qty/Days Supply: Rx Expiration Date: 04/27/24 Refills Remainin OUTPT NEEDLE 23G 1IN (Status = Active) USE 1 NEEDLE EVERY 7 DAYS FOR INJECTION Rx# [id number] Last Released: 07/20/23 Qty/Days Supply: Rx Expiration Date: 04/27/24 Refills Remainin OUTPT SYRINGE 1ML LUER LOCK TIP (Status = Active) USE 1 SYRINGE EVERY 7 DAYS Rx# [id number] Last Released: 07/13/23 Qty/Days Supply: Rx Expiration Date: 04/27/24 Refills Remainin OUTPT SYRINGE 2.5-3ML/NDL 22G 1.5IN SAFETY (Status = ) USE 1 SYRINGE EVERY THIRD DAY Rx# [id number] Last Released: 04/27/23 Qty/Days Supply: Rx Expiration Date: 07/25/23 Refills Remainin /thomas/ VEGA PENA DNP, THERAPY TECHNICIAN-C NURSE PRACTITIONER Signed: 10/10/2023 15:11 10/16/2023 ADDENDUM STATUS: 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 His UPPER FOREHEAD biopsy returned as (at least) a pre-cancerous lesion called actinic keratosis, we will use liquid nitrogen to treat this lesion at next follow up, sooner if needed. LAB SURGICAL PATHOLOGY Collected: 10/10/2023 13:00Acc:[facility] [id number] Surgeon/Physician: VEGA PENA Specimen: SKIN OF CENTRAL UPPER FOREHEAD SKIN OF R TEMPORAL SCALP Brief Clinical Hx: SP 174 SPECIMEN A: CENTRAL UPPER FOREHEAD 1CM ERYTHERMATOUS PAPULE SPECIMEN B: R TEMPORAL SCALP 3CM HYPERPIGMENTED PLAQUE Gross Description: [facility] [id number];A;1;CORA,R [id number]. Received in formalin is a [...] follows: B1: Tips B2: Body JK 10/11/2023 Microscopic Exam: A. Skin, central upper forehead: Hypertrophic actinic keratosis. Note: The base of the lesion is inadequately represented [multiple tissue levels examined]. Given this, squamous cell carcinoma cannot be entirely excluded. Clinicopathologic correlation is recommended. B. Skin, right temporal scalp: Pigmented seborrheic keratosis, extending to the lateral and deep tissue margins. CPT codes 25197e0 /thomas/ VEGA PENA DNP, THERAPY TECHNICIAN-C NURSE PRACTITIONER Signed: 10/16/2023 08:30 Receipt Acknowledged By: 10/23/2023 11:56 /benny GALLOWAY LPN LPN 10/19/2023 ADDENDUM STATUS: COMPLETED VM left to return call for biopsy results. /benny GALLOWAY LPN LPN Signed: 10/19/2023 08:48 10/23/2023 ADDENDUM STATUS: COMPLETED [place] aware of biopsy results and will f/u next visit for treatment. /benny GALLOWAY LPN LPN Signed: 10/23/2023 11:57 VEGA PENA [facility]
--- OUTSIDE RECORDS SUMMARY | 2024-06-14 13:19 | XMS_ITS | Encounter Summary ---
Author Name [facility] [place] Organization [facility] [place] Address [address] [place] [id number] Care Team Providers Care Newspaper Delivery Counselor Name Role Phone TOÑO CAI Primary Care [...] [place] MEDICARE SUPPLEMEN MASTER PSUED O MEDEX [facility] E Mar 19, 2004 [id number] HOLLIE SHEPHERD PATIENT [place] SUPPLEMEN MASTER MEDEX [place] E Mar 19, 2004 [id number] [phone] HOLLIE SHEPHERD [place] SUPPLEMEN MASTER MEDEX [place] E Mar 19, 2004 [id number] [phone] HOLLIE SHEPHERD PATIENT BCBS [facility] MEDICARE SUPPLEMEN MASTER PSUED O MEDEX [place] E Mar 19, 2004 [id number] HOLLIE SHEPHERD PATIENT MEDICARE (WNR) MEDICARE (M) PART B Mar 19, 2004 PART B [id number] HOLLIE SHEPHERD PATIENT MEDICARE (WNR) MEDICARE (M) PART B Mar 19, 2004 PART B [id number] HOLLIE SHEPHERD PATIENT MEDICARE (WNR) MEDICARE (M) PART B Mar 19, 2004 PART B [id number] HOLLIE SHEPHERD ALD PATIENT MEDICARE (WNR) MEDICARE (M) PART A Feb 17, 2003 PART A [id number] [phone] CORAHOLLIE SILVA ALD PATIENT MEDICARE (WNR) MEDICARE (M) PART A Feb 17, 2003 PART A [id number] [phone] HOLLIE SHEPHERD PATIENT MEDICARE (WNR) MEDICARE (M) PART A Feb 17, 2003 PART A [id number] HOLLIE SHEPHERD PATIENT MEDICARE (WNR) MEDICARE (M) PART A Feb 17, 2003 PART A [id number] HOLLIE SHEPHERD PATIENT MEDICARE (WNR) MEDICARE (M) PART B Feb 17, 2003 PART B [id number] [phone] HOLLIE SHEPHERD PATIENT MEDICARE (WNR) MEDICARE (M) PART A Feb 17, 2003 PART A [id number] HOLLIE SHEPHERD PATIENT MEDICARE (WNR) MEDICARE (M) PART B Feb 17, 2003 PART B [id number] HOLLIE SHEPHERD PATIENT Selected Encounter This section includes the information on record at [place] for the Encounter. Date/Time Encounter Type Encounter Description Reason Provider Source November 01, 2023 10:30 AM OFFICE O/P EST LOW 20 [facility] - IND ICD-10-CM F33.0 Major depressive disorder, recurrent, mild MEREDITH,GIHYUN IHE Encounter Template Text not used by [place] Assessments - Encounter Diagnoses This section includes the primary and secondary diagnoses documented for the Encounter. Date/Time Primary/Secondary Diagnosis Diagnosis Name Provider Source Nov 24, 2023 03:43 PM PRIMARY Major depressive disorder, recurrent, mild MEREDITH,GIHYUN [place] [facility] [place] [facility] Plan of Treatment: Future Appointments (+ 6 months) and Future Tests (+/- 45 days) The Plan of Treatment section includes future care activities for the patient from all [place] [facility] This section includes future appointments and future orders which are active, pending or scheduled. Future Appointments This section includes appointments that were scheduled to occur 6 months from the date of the Encounter, up to a maximum of 20 appointments. The data comes from all [place] treatment facilities. Appointment Date/Time Appointment Type Appointme nt Facility Name November 02, 2023 11:15 AM AMBULATORY - MEDICINE [facility] [place] [facility] November 02, 2023 11:30 AM AMBULATORY - MEDICINE [facility] [place] [facility] November 06, 2023 02:50 PM AMBULATORY - MEDICINE [facility] [place] [facility] Nov 22, 2023 10:00 AM AMBULATORY - MEDICINE [facility] [place] [facility] Nov 27, 2023 02:00 PM AMBULATORY - MEDICINE [facility] [place] [facility] Feb 12, 2024 10:00 AM AMBULATORY - MEDICINE [facility] [place] [facility] Feb 28, 2024 01:00 PM AMBULATORY [place] [facility] Feb 28, 2024 01:00 PM AMBULATORY - PSYCHIATRY [facility] [place] [facility] Mar 25, 2024 10:00 AM AMBULATORY - MEDICINE [facility] [place] [facility] Mar 25, 2024 10:30 AM AMBULATORY - MEDICINE [facility] [place] [facility] Apr 02, 2024 02:00 PM AMBULATORY - MEDICINE [facility] [place] [facility] Apr 04, 2024 02:00 PM AMBULATORY - MEDICINE [facility] [place] [facility] Apr 08, 2024 01:00 PM AMBULATORY - REHAB MEDICIN E [facility] [place] [facility] Apr 12, 2024 09:45 AM AMBULATORY - MEDICINE [facility] [place] [facility] Apr 16, 2024 10:00 AM AMBULATORY - REHAB MEDICIN E [facility] [place] [facility] May 02, 2024 10:00 AM AMBULATORY - REHAB MEDICIN E [facility] [place] [facility] Active, Pending, and Scheduled Orders This section includes a listing of several types of active, pending, and scheduled orders, including clinic medications orders, diagnostic test orders, procedure orders and consult orders; where the start date of the order is 45 days before the date of the Encounter or 45 days after the date of theEncounter. The data comes from all [place] treatment facilities. Test Date/Time Test Type Test Details Facility Name Oct 10, 2023 12:00 AM Laboratory - Chemi stry Order SURGICAL PATH ORDER SURG PATH SPEC. UNKNOWN SP [facility] Lab Results: +/- 30 days of the encounter This section includes the Chemistry and Hematology Lab Results on record with [place] for the patient. Radiology Reports and Pathology Reports are provided separately, in subsequent sections. Lab Results This section contains the Chemistry/Hematology Results that were resulted 30 days before or 30 daysafter the date of the Encounter. Date/Time Source Result Type Result - Unit Interpretation Reference Range Comment Oct 11, 2023 01:27 PM [facility] MICROALBUMIN CREATININE RATIO PANEL Specimen Type: URINE No comment entered. Ordering Provider: ALLIE CUELLO Report Released Date/Time: Jul 26, 2023 10:12 AM Reporting Lab: [facility] [address] [facility] [address] Performing Lab: [facility] [address] [facility] [address] MICROALBUMIN/C REATININE RATIO 7.1 mg/g 0-29.9 MICROALBUMIN,Q UANTITATIVE 0.8 mg/dL RR UNAVAIL CREATININE URINE 113.29 mg/dL Oct 10, 2023 03:42 PM [facility] LIVER FUNCTION Specimen Type: SERUM Comment: *BASIC METABOLIC PANEL (fasting) Not Performed: Oct 10, 2023@15:51 b *CHEMICAL PROCESS PROJECT ENGINEER Reason: dup *LIPID PANEL FASTING Not Performed: Oct 10, 2023@15:51 by [id number] *CHEMICAL PROCESS PROJECT ENGINEER Reason: dup Ordering Provider: JUAN LUIS CAI Report Released Date/Time: Jun 05, 2023 11:22 AM Reporting Lab: [facility] [address] [facility] [address] Performing Lab: [facility] [address] [facility] [address] PROTEIN,TOTAL 6.0 g/dL 6.0-8.3 ALBUMIN 4.2 g/dL 3.5-5.0 ALKALINE PHOSPHATASE 89 U/L 40-150 AST 29 U/L 5-34 ALT 29 U/L BILIRUBIN, TOTAL 1.3 mg/dL H 0.2-1.2 BILIRUBIN, DIRECT 0.5 mg/dL 0-0.5 Oct 10, 2023 03:41 PM [facility] TESTOSTERONE, TOTAL (V) Specimen Type: SERUM No comment entered. Ordering Provider: ALLIE CUELLO Report Released Date/Time: Jul 26, 2023 10:12 AM Reporting Lab: [address] [address] Performing Lab: [address] [address] TESTOSTERONE, TOTAL (V) 755.20 ng/dL 220.00-892 .00 Oct 10, 2023 03:41 PM [facility] PSA Specimen Type: SERUM No comment entered. Ordering Provider: ALLIE CUELLO Report Released Date/Time: Jul 26, 2023 10:12 AM Reporting Lab: [address] [address] Performing Lab: [address] [address] PSA 4.74 ng/mL H 0.00-4.00 Oct 10, 2023 03:41 PM [facility] HEMOGLOBIN A1C PANEL Specimen Type: BLOOD [...] Jul 26, 2023 10:12 AM Reporting Lab: [address] [address] Performing Lab: [facility] [address] [facility] [address] HEMOGLOBIN A1C 6.7 H 4.0-5.6 Oct 10, 2023 03:41 PM [facility] CBC Specimen Type: BLOOD No comment entered. Ordering Provider: ALLIE CUELLO Report Released Date/Time: Jul 26, 2023 10:12 AM Reporting Lab: [facility] [address] [facility] [address] Performing Lab: [facility] [address] [facility] [address] WBC 5.42 10*3/uL 4.50-11.00 RBC 4.87 10*6/uL 4.23-5.66 HGB 12.5 g/dL L 12.8-17 HCT 39.4 39.2-50.4 MCV 80.9 fL L 82-99 MCHC 31.7 g/dL 30.8-35.1 PLT 123 10*3/uL L 140-360 RDW-CV 14.7 12.0-16.0 MCH 25.7 pg L 26.2-32.6 Oct 10, 2023 03:41 PM [facility] LIPID PANEL FASTING Specimen Type: SERUM No comment entered. Ordering Provider: ALLIE CUELLO Report Released Date/Time: Jul 26, 2023 10:12 AM Reporting Lab: [address] [address] [facility]forming [facility]: [facility] [address] CHOLESTEROL 96 mg/dL TRIGLYCERIDE 101 mg/dL 0-150 LDL calculated 44 mg/dL 0-129 CHOL/HDL 3.0 HDL CHOLESTEROL 32 mg/dL L 40-60 Oct 10, 2023 03:41 PM [facility] CALCIUM Specimen Type: SERUM No comment entered. Ordering Provider: ALLIE CUELLO Report Released Date/Time: Oct 10, 2023 07:35 AM Reporting Lab: [address] [address] Performing Lab: [facility] [address] [address] CALCIUM 9.1 mg/dL 8.5-10.2 Oct 10, 2023 03:41 PM [facility] VITAMIN D (25-OH) Specimen Type: SERUM No comment entered. Ordering Provider: ALLIE CUELLO Report Released Date/Time: Oct 10, 2023 07:35 AM Reporting Lab: [address] [address] Performing Lab: [address] [address] VITAMIN D (25-OH) 41 ng/mL 20-50 Oct 10, 2023 03:41 PM [facility] BASIC METABOLIC PANEL (fasting) Specimen Type: SERUM No comment entered. Ordering Provider: ALLIE CUELLO Report Released Date/Time: Jul 26, 2023 10:12 AM Reporting Lab: [address] [address] Performing Lab: [address] [address] UREA NITROGEN 22 mg/dL 7-25 GLUCOSE 172 [...] 133/77 16 96 2 184 31 [facility] Social History: Smoking Status (Most current) and Tobacco Use (All prior to encounter date) This section includes the most current, and the historical, smoking and tobacco- related health factors from the [place] facility where the Encounter took place. Current Smoking Status This section includes the most current smoking, or tobacco-related health factor, from the [place] facility where the Encounter took place. Date/Time Current Smoking Status Comment Facil it Jun 05, 2023 11:00 AM VA-TOBACCO FORMER USER [place] [facility] [place] [facility] Tobacco Use History This section includes a history of the smoking, or tobacco-related health factors, that were collected on or before the date of the Encounter. The data comes from the [place] facility where the Encounter took place. Date/Time Smoking Status/Tobac co Use Comment Facility Jun 05, 2023 11:00 AM VA-TOBACCO QUIT 15 YRS OR MORE [facility] [place] [facility] Jun 06, 2022 01:00 PM VA-TOBACCO FORMER USER [facility] [place] [facility] Jun 06, 2022 01:00 PM VA-TOBACCO QUIT 15 YRS OR MORE [facility] [place] [facility] Jun 30, 2021 02:37 PM VA-TOBACCO FORMER USER [place] [facility] [place] [facility] Jun 30, 2021 02:37 PM VA-TOBACCO QUIT 5 TO < 15 YRS [place] [facility] [place] [facility] May 22, 2020 03:30 PM VA-TOBACCO NEVER USED [place] [facility] [place] [facility] May 08, 2018 02:03 PM VA-TOBACCO FORMER USER [place] [facility] [place] [facility] May 08, 2018 02:03 PM VA-TOBACCO QUIT 15 YRS OR MORE [facility] [place] [facility] November 10, 2017 02:33 PM QUIT TOBACCO USE > 7 YEARS AGO [facility] [place] [facility] October 21, 2016 01:55 PM QUIT TOBACCO USE > 7 YEARS AGO [facility] [place] [facility] Sep 18, 2015 11:24 AM QUIT TOBACCO USE > 7 YEARS AGO stopped 50 years ago [facility] [place] [facility] May 19, 2005 08:01 AM HISTORY OF SMOKING [place] [facility] [place] [facility] May 31, 2004 01:02 PM HISTORY OF SMOKING [facility] [place] [facility] Jun 04, 2003 07:57 AM HISTORY OF SMOKING [facility] [place] [facility] Jun 03, 2002 01:11 PM HISTORY OF SMOKING [facility] [place] [facility] Jun 03, 2002 01:11 PM QUIT TOBACCO USE > 7 YEARS AGO [facility] Advance Directives: All historical and current Section Date Range: From patient's date of to the date document was created. This section includes ALL of a patient's completed or amended [place] Advance and Rescinded Directives. The entries below indicate that a directive exists for the patient, but an actual copy is not included with this document. The data comes from all [place] facilities. Date Advance Directives Provider Source Jun 02, 2023 ADVANCE DIRECTIVE JENNIFER QUIROS [facility] Pathology Reports: +/- 30 days of [...] the Encounter. The data comes from all [place] treatment facilities. Date/Time Pathology Report Provider Source Oct 12, 2023 10:54 AM LR SURGICAL PATHOLOGY REPORT: LOCAL TITLE: LR SURGICAL PATHOLOGY REPORT STANDARD TITLE: PATHOLOGY DIAGNOSTIC STUDY REPORT DATE OF NOTE: OCT 12, 2023@10:54:23 ENTRY DATE: OCT 12, 2023@10:54:23 AUTHOR: LESTER ANDERSON MD EXP COSIGNER: URGENCY: STATUS: COMPLETED $APHDR Reporting Lab: [facility] [CLIA# [id number]] [address] [place] [phone] - - - - - - - [...] - - - PATHOLOGY REPORT Accession No. [facility] 174 - - - - - - - - - - - - - - - - - - - - - - - - - - - - - - - - - - - - - - - - Gross description: [facility] 0209;A;1;Nisa SHEPHERD This is a [facility] case number [facility] 174. Received in formalin is a 2 [...] lateral and deep tissue margins. CPT codes 30861x0 /thomas/ LESTER ANDERSON MD Board Certified Dermatopathologist Signed Oct 12, 2023@10:54 Performing Laboratory: Surgical Pathology Report Performed By: [facility] [CLIA# [id number]] [address] [place] [id number] $FTR - - - - - - [...] - - BEBO SHEPHERD STANDARD FORM 515 ID:[id number] SEX:M :1940 AGE: 83 LOC:CWM/NO/CVT/DERMATOLOGY/N P PCP: RUBY Long /thomas/ LESTER ANDERSON MD Board Certified Dermatopathologist Signed: 10/12/2023 10:54 LESTER ANDERSON MD [facility] Encounter Notes: All associated encounter notes This section contains the clinical notes associated to the Encounter. Date/Time Encounter Note(s) Provider Source November 01, 2023 11:02 AM PSYCHIATRY NOTE: LOCAL TITLE: PSYCHIATRY NOTE STANDARD TITLE: PSYCHIATRY NOTE DATE OF NOTE: NOVEMBER 01, 2023@11:02 ENTRY DATE: NOVEMBER 01, 2023@11:02:46 AUTHOR: RADHA HARPER EXP COSIGNER: URGENCY: STATUS: COMPLETED Length of time: 20-30 minutes Clinical services provided by Radha Harper MD, staff psychiatrist. Clinical services are being provided via [facility] from the [facility] to the [facility] through the [facility] Clinical Resource Hub. ID & Diagnoses: 83-year-old male with major depressive disorder (0% SC). , father of 4 adult children (between 54-61). Lives alone with a cat and a lot of fish in a large fish tank. Served in [employer] for 6 yrs. 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 Psychiatric Medications: Citalopram 10 mg/day for depression History of Present Illness: While taking citalopram 10 mg/day, he continues to do well. He denies clinical depression (0/10, 10 being worst). Thus, he would like to continue citalopram 10 mg/day for depression. Although he had several concerns, he has resolved all issues: 1) less knee pain (working with his smoking pipe liner), 2) he successfully completed hear valve replacement surgery, and 3) his youngest son's spine surgery was successful. He denies active stressors except some minor medical problems (skin issues, elbow bursitis). He sees his medical doctors regularly. He has several friends. He has a good relationship with his girlfriend he recently met at a religious, who is about 15 yrs younger than him. He still visit his 's cemetery almost daily. He continues to work as a wood container maker. He talks and sees his children, grandchildren, and great-grandchildren very often (usually once a week). He enjoys making wood toys, watching movies, doing yard work and lawn maintenance, and meeting with religious people. Denies alcohol, drug, or gambling problems. No acute psychiatric issues noted. MENTAL STATUS EXAM: Appearance/Behavior: good eye contact Speech: normal rate/rhythm Mood: fine Affect: appropriate Perceptual disturbance: no visual/auditory hallucinations Thought process: goal directed Thought content: no delusions Suicidal/Violent thoughts: none Cognition/Memory: grossly intact Insight/Judgment: good Risk assessment: is determined to have LOW ACUTE RISK to self or others at this time. is determined to have LOW CHRONIC RISK---based on no prior suicide attempts. Risk Factors: [ x ] no [ ] yes Hopelessness [ x ] no [ ] yes Access to means to carry out a plan [ x ] no [ ] yes Acute/recent/impending loss [ ] no [ x ] yes Recent discharge from inpatient unit [ x ] no [ ] yes Worsening medical condition [ x ] no [ ] yes Chronic pain (pain score 6+) [ x ] no [ ] yes Psychosis [ x ] no [ ] yes Anxiety/agitation [ x ] no [ ] yes History of impulsivity [ x ] no [ ] yes Substance Abuse Protective Factors: [ ] no [ x ] yes Social Supports [ ] no [ x ] yes Therapeutic [place] [ ] no [ x ] yes Dependent Children/Family Responsibility [ ] no [ x ] yes Future-oriented Plans and Commitments [ ] no [ x ] yes Spirituality [ ] no [ x ] yes Good Problem Solving Skills Assessment of Immediate Suicide Risk: [ x ] Low [ ] Moderate [ ] High Assessment of Chronic Suicide Risk: [ x ] Low [ ] Moderate [ ] High Assessment of Violence Risk: [ x ] Low [ ] Moderate [ ] High Safety: Patient has agreed to call 911 [...] taking psychotropic medications as prescribed Active Problem Elevated PSA R97.20 10/11/2023 ALLIE CUELLO Aortic Valve Disorder ([facility] [id number]) 10/09/2023 TOÑO CAI Cerebrovascular disease I67.9 04/26/2023 ALLIE CUELLO Chronic recurrent major depressive 02/01/2023 SHANTI CHEN 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 09/19/2011 TIARRATOÑO MCARTHUR Microscopic Hematuria 599.72 08/04/2010 VESTA DE LA CRUZ MD Rosacea 695.3 07/30/2010 VESTA DE LA CRUZ MD Hypertension (SNOMED CT [id number]) I 04/26/2023 ALLIE CUELLO Spinal Stenosis * (ICD-9-CM 724.00) 02/05/2010 VESTA DE LA CRUZ MD Hyperlipidemia (SNOMED CT [id number]) 04/26/2023 ALLIE CUELLO Osteoarthritis * (ICD-9-CM 715.90) 07/02/2008 PAUL ACOSTA Lower Back Pain * (ICD-9-CM 724.2) 07/02/2008 PAUL ACOSTA Vertigo 780.4 11/28/2007 PAUL ACOSTA Diabetes mellitus type 2 (SNOMED CT 09/17/2022 ALLIE CUELLO Gastroesophageal Reflux Disorder 53 11/28/2007 PAUL ACOSTA ASSESSMENT: -Major depressive disorder: stable PLAN: -Continue citalopram 10 mg/day for depression -Follow-up: Return to clinic with keno writer/runner on 02/13 or earlier as needed /thomas/ Radha Harper MD PSYCHIATRIST, PSYCHIATRY Signed: 11/01/2023 11:13 RAD[facility] HARPER [facility]
--- OUTSIDE RECORDS SUMMARY | 2024-06-14 13:19 | XMS_ITS | Encounter Summary ---
Author Name [facility] [place] Address [address] [place] [id number] Care Team Providers Care Clinical Psychologist Licensed Name Role Phone TOÑO CAI Primary Care [...] Relationship to Policy Wen [place] SUPPLEMEN MASTER PSUED O MEDEX BRONZ E Mar 19, 2004 [id number] [phone] HOLLIE SHEPHERD PATIENT [place] SUPPLEMEN MASTER MEDEX BRONZ E Mar 19, 2004 [id number] [phone] HOLLIE SHEPHER[place] SUPPLEMEN MASTER MEDEX BRONZ E Mar 19, 2004 [id number] [phone] HOLLIE SHEPHERD PATIENT BCBS [facility] MEDICARE SUPPLEMEN MASTER PSUED O MEDEX BRONZ E Mar 19, 2004 [id number] [phone] HOLLIE SHEPHERD PATIENT MEDICARE (WN) MEDICARE (M) PART B Mar 19, 2004 PART B [id number] HOLLIE SHEPHERD PATIENT MEDICARE (WNR) MEDICARE (M) PART B Mar 19, 2004 PART B [id number] HOLLIE SHEPHERD ALD PATIENT MEDICARE (WNR) MEDICARE (M) PART B Mar 19, 2004 PART B [id number] HOLLIE SHEPHERD PATIENT MEDICARE (WNR) MEDICARE (M) PART A Feb 17, 2003 PART A [id number] [phone] HOLLIE SHEPHERD ALD PATIENT MEDICARE (WNR) MEDICARE (M) PART A Feb 17, 2003 PART A [id number] HOLLIE SHEPHERD PATIENT MEDICARE (WNR) MEDICARE (M) PART A Feb 17, 2003 PART A [id number] [phone] HOLLIE SHEPHERD PATIENT MEDICARE (WNR) MEDICARE (M) PART A Feb 17, 2003 PART A [id number] OHLLIE SHEPHERD PATIENT MEDICARE (WNR) MEDICARE (M) PART B Feb 17, 2003 PART B [id number] [phone] HOLLIE SHEPHERD PATIENT MEDICARE (WNR) MEDICARE () PART A Feb 17, 2003 PART A [id number] HOLLIE SHEPHERD PATIENT MEDICARE (WNR) MEDICARE (M) PART B Feb 17, 2003 PART B [id number] HOLLIE SHEPHERD PATIENT Selected Encounter This section includes the information on record at [place] for the Encounter. Date/Time Encounter Type Encounter Description Reason Provider Source October 18, 2023 01:00 PM DENOSUMAB INJECTION GENERAL INTERNAL MEDICINE ICD-10-CM M81.0 Age-related osteoporosis w/o current pathological fracture GABY ARIAS E Encounter Template Text not used by [place] Assessments - Encounter Diagnoses This section includes the primary and secondary diagnoses documented for the Encounter. Date/Time Primary/Secondary Diagnosis Diagnosis Name Provider Source November 11, 2023 06:42 AM PRIMARY Age-related osteoporosis w/o current pathological fracture GABY ARIAS [facility] Plan of Treatment: Future Appointments (+ 6 months) and Future Tests (+/- 45 days) The Plan of Treatment section includes future care activities for the patient from all [facility]. This section includes future appointments and future orders which are active, pending or scheduled. Future Appointments This section includes appointments that were scheduled to occur 6 months from the date of the Encounter, up to a maximum of 20 appointments. The data comes from all [place] treatment facilities. Appointment Date/Time Appointment Type Appointme nt Facility Name November 01, 2023 10:30 AM AMBULATORY [place] [facility] November 01, 2023 10:30 AM AMBULATORY - [facility]IAT[facility] [place] [facility] November 01, 2023 11:15 AM AMBULATORY - MEDICINE [facility] [place] [facility] November 01, 2023 01:30 PM AMBULATORY - MEDICINE [facility] [place] [facility] November 02, 2023 11:15 AM AMBULATORY - MEDICINE [facility] [place] [facility] November 02, 2023 11:30 AM AMBULATORY - MEDICINE [facility] [place] [facility] November 06, 2023 02:50 PM AMBULATORY - MEDICINE [facility] [place] [facility] Nov 22, 2023 10:00 AM AMBULATORY - MEDICINE [facility] [place] [facility] Nov 27, 2023 02:00 PM AMBULATORY - MEDICINE [facility] [place] [facility] Feb 12, 2024 10:00 AM AMBULATORY - MEDICINE [facility] [place] [facility] Feb 28, 2024 01:00 PM AMBULATORY [place] [facility] Feb 28, 2024 01:00 PM AMBULATORY - PS[facility]CHIATRY [facility] [place] [facility] Mar 25, 2024 10:00 AM AMBULATORY - MEDICINE [facility] [place] [facility] Mar 25, 2024 10:30 AM AMBULATORY - MEDICINE [facility] [place] [facility] Apr 02, 2024 02:00 PM AMBULATORY - MEDICINE [facility] [place] [facility] Apr 04, 2024 02:00 PM AMBULATORY - MEDICINE [facility] [place] [facility] Apr 08, 2024 01:00 PM AMBULATORY - REHAB MEDICIN E [facility] [place] [facility] Apr 12, 2024 09:45 AM AMBULATORY - MEDICINE [facility] Apr 16, 2024 10:00 AM [facility] Active, Pending, and Scheduled Orders This section includes a listing of several types of active, pending, and scheduled orders, including clinic medications orders, diagnostic test orders, procedure orders and consult orders; where the start date of the order is 45 days before the date of the Encounter or 45 days after the date of theEncounter. The data comes from all [place] treatment facilities. Test Date/Time Test Type Test Details Facility Name Oct 10, 2023 12:00 AM Laboratory - Chemi stry Order SURGICAL PATH ORDER SURG PATH SPEC. UNKNOWN SP [facility] Lab Results: +/- 30 days of the encounter This section includes the Chemistry and Hematology Lab Results on record with [place] for the patient. Radiology Reports and Pathology Reports are provided separately, in subsequent sections. Lab Results This section contains the Chemistry/Hematology Results that were resulted 30 days before or 30 daysafter the date of the Encounter. Date/Time Source Result Type Result - Unit Interpretation Reference Range Comment Oct 11, 2023 01:27 PM [facility] MICROALBUMIN CREATININE RATIO PANEL Specimen Type: URINE No comment entered. Ordering Provider: ALLIE CUELLO Report Released Date/Time: Jul 26, 2023 10:12 AM Reporting Lab: [facility] [address] [facility] [address] Performing Lab: [facility] [address] [facility] [address] MICROALBUMIN/C REATININE RATIO 7.1 mg/g 0-29.9 MICROALBUMIN,Q UANTITATIVE 0.8 mg/dL RR UNAVAIL CREATININE URINE 113.29 mg/dL Oct 10, 2023 03:42 PM [facility] LIVER FUNCTION Specimen Type: SERUM Comment: *BASIC METABOLIC PANEL (fasting) Not Performed: Oct 10, 2023@15:51 b *BLANKER PRESS OPERATOR Reason: dup *LIPID PANEL FASTING Not Performed: Oct 10, 2023@15:51 by [id number] *BLANKER PRESS OPERATOR Reason: dup Ordering Provider: JUAN LUIS CAI Report Released Date/Time: Jun 05, 2023 11:22 AM Reporting Lab: [address] [address] Performing Lab: [address] [address] PROTEIN,TOTAL 6.0 g/dL 6.0-8.3 ALBUMIN 4.2 g/dL 3.5-5.0 ALKALINE PHOSPHATASE 89 U/L 40-150 AST 29 U/L 5-34 ALT 29 U/L BILIRUBIN, TOTAL 1.3 mg/dL H 0.2-1.2 BILIRUBIN, DIRECT 0.5 mg/dL 0-0.5 Oct 10, 2023 03:41 PM [facility] TESTOSTERONE, TOTAL (WHV) Specimen Type: SERUM No comment entered. Ordering Provider: ALLIE CUELLO Report Released Date/Time: Jul 26, 2023 10:12 AM Reporting Lab: [address] [address] Performing Lab: [address] [address] TESTOSTERONE, TOTAL (WHV) 755.20 ng/dL 220.00-892 .00 Oct 10, 2023 03:41 PM [facility] PSA Specimen Type: SERUM No comment entered. Ordering Provider: ALLIE CUELLO Report Released Date/Time: Jul 26, 2023 10:12 AM Reporting Lab: [address] [address] Performing Lab: [address] [address] PSA 4.74 ng/mL H 0.00-4.00 Oct 10, 2023 03:41 PM [facility] HEMOGLOBIN A1C PANEL Specimen Type: BLOOD [...] Jul 26, 2023 10:12 AM Reporting Lab: [facility] [address] [facility] [address] Performing Lab: [facility] [address] [facility] [address] HEMOGLOBIN A1C 6.7 H 4.0-5.6 Oct 10, 2023 03:41 PM [facility] LIPID PANEL FASTING Specimen Type: SERUM No comment entered. Ordering Provider: ALLIE CUELLO Report Released Date/Time: Jul 26, 2023 10:12 AM Reporting Lab: [address] [address] Performing Lab: [address] [address] CHOLESTEROL 96 mg/dL TRIGLYCERIDE 101 mg/dL 0-150 LDL calculated 44 mg/dL 0-129 CHOL/HDL 3.0 HDL CHOLESTEROL 32 mg/dL L 40-60 Oct 10, 2023 03:41 PM [facility] CBC Specimen Type: BLOOD No comment entered. Ordering Provider: ALLIE CUELLO Report Released Date/Time: Jul 26, 2023 10:12 AM Reporting Lab: [facility] [address] [facility] [address] Performing Lab: [address] [address] WBC 5.42 10*3/uL 4.50-11.00 RBC 4.87 10*6/uL 4.23-5.66 HGB 12.5 g/dL L 12.8-17 HCT 39.4 39.2-50.4 MCV 80.9 fL L 82-99 MCHC 31.7 g/dL 30.8-35.1 PLT 123 10*3/uL L 140-360 RDW-CV 14.7 12.0-16.0 MCH 25.7 pg L 26.2-32.6 Oct 10, 2023 03:41 PM [facility] CALCIUM Specimen Type: SERUM No comment entered. Ordering Provider: ALLIE CUELLO Report Released Date/Time: Oct 10, 2023 07:35 AM Reporting Lab: [address] [address] Performing Lab: [address] [address] CALCIUM 9.1 mg/dL 8.5-10.2 Oct 10, 2023 03:41 PM [facility] VITAMIN D (25-OH) Specimen Type: SERUM No comment entered. Ordering Provider: ALLIE CUELLO Report Released Date/Time: Oct 10, 2023 07:35 AM Reporting Lab: [address] [address] Performing Lab: [address] [address] VITAMIN D (25-OH) 41 ng/mL 20-50 Oct 10, 2023 03:41 PM [facility] BASIC METABOLIC PANEL (fasting) Specimen Type: SERUM No comment entered. Ordering Provider: ALLIE CUELLO Report Released Date/Time: Jul 26, 2023 10:12 AM Reporting Lab: [address] [address] Performing Lab: [address] [address] UREA NITROGEN 22 mg/dL 7-25 GLUCOSE 172 [...] and tobacco- related health factors from the AR facility where the Encounter took place. Current Smoking Status This section includes the most current smoking, or tobacco-related health factor, from the [place] facility where the Encounter took place. Date/Time Current Smoking Status Comment Facil ity Jun 05, 2023 11:00 AM VA-TOBACCO FORMER USER [facility] [place] [facility] Tobacco Use History This section includes a history of the smoking, or tobacco-related health factors, that were collected on or before the date of the Encounter. The data comes from the AR facility where the Encounter took place. Date/Time Smoking Status/Tobac co Use Comment Facility Jun 05, 2023 11:00 AM VA-TOBACCO QUIT 15 YRS OR MORE [facility] [place] [facility] Jun 06, 2022 01:00 PM VA-TOBACCO FORMER USER [facility] [place] [facility] Jun 06, 2022 01:00 PM VA-TOBACCO QUIT 15 YRS OR MORE [facility] [place] [facility] Jun 30, 2021 02:37 PM VA-TOBACCO FORMER USER [facility] [place] [facility] Jun 30, 2021 02:37 PM VA-TOBACCO QUIT 5 TO < 15 YRS [facility] [place] [facility] May 22, 2020 03:30 PM VA-TOBACCO NEVER USED [facility] [place] [facility] May 08, 2018 02:03 PM VA-TOBACCO FORMER USER [facility] [place] [facility] May 08, 2018 02:03 PM VA-TOBACCO QUIT 15 YRS OR MORE [facility] [place] [facility] November 10, 2017 02:33 PM QUIT TOBACCO USE > 7 YEARS AGO [facility] [place] [facility] October 21, 2016 01:55 PM QUIT TOBACCO USE > 7 YEARS AGO [facility] [place] [facility] Sep 18, 2015 11:24 AM QUIT TOBACCO USE > 7 YEARS AGO stopped 50 years ago [facility] [place] [facility] May 19, 2005 08:01 AM HISTORY OF SMOKING [facility] [place] [facility] May 31, 2004 01:02 PM HISTORY OF SMOKING [facility] [place] [facility] Jun 04, 2003 07:57 AM HISTORY OF SMOKING [facility] [place] [facility] Jun 03, 2002 01:11 PM HISTORY OF SMOKING [facility] [place] [facility] Jun 03, 2002 01:11 PM QUIT TOBACCO USE > 7 YEARS AGO [facility] [place] [facility] Advance Directives: All historical and current Section Date Range: From patient's date of to the date document was created. This section includes ALL of a patient's completed or amended [place] Advance and Rescinded Directives. The entries below indicate that a directive exists for the patient, but an actual copy is not included with this document. The data comes from all [place] facilities. Date Advance Directives Provider Source Jun 02, 2023 ADVANCE DIRECTIVE [facility] Pathology Reports: +/- 30 days of the [...] the Encounter. The data comes from all [place] treatment facilities. Date/Time Pathology Report Provider Source Oct 12, 2023 10:54 AM LR SURGICAL PATHOLOGY REPORT: LOCAL TITLE: LR SURGICAL PATHOLOGY REPORT STANDARD TITLE: PATHOLOGY DIAGNOSTIC STUDY REPORT DATE OF NOTE: OCT 12, 2023@10:54:23 ENTRY DATE: OCT 12, 2023@10:54:23 AUTHOR: LESTER ANDERSON MD EXP COSIGNER: URGENCY: STATUS: COMPLETED $APHDR Reporting Lab: [facility] [CLIA# [id number]] [address] [place] [phone] - - - - - - - [...] REPORT Accession No. [facility] 174 - - - - - - - - - - - - - - - - - - - - - - - - - - - - - - - - - - - - - - - - Gross description: [facility] 4528;A;1;Nisa SHEPHERD This is a [facility] case number [facility] 24 174. Received in formalin is a [...] lateral and deep tissue margins. CPT codes [id number] /thomas/ LESTER ANDERSON MD Board Certified Dermatopathologist Signed Oct 12, 2023@10:54 Performing Laboratory: Surgical Pathology Report Performed By: [facility] [CLIA# [id number]] [address] [place] [phone] $FTR - - - - - - [...] - - BEBO SHEPHERD STANDARD FORM 515 ID:[id number] SEX:M :1940 AGE: 83 LOC:CWM/NO/CVT/DERMATOLOGY/N P PCP: RUBY Long /thomas/ LESTER ANDERSON MD Board Certified Dermatopathologist Signed: 10/12/2023 10:54 LESTER ANDERSON MD [facility] Encounter Notes: All associated encounter notes This section contains the clinical notes associated to the Encounter. Date/Time Encounter Note(s) Provider Source October 18, 2023 01:32 PM NURSING OUTPATIENT NOTE: LOCAL TITLE: NURSING/SPECIALTY CLINIC NOTE STANDARD TITLE: NURSING OUTPATIENT NOTE DATE OF NOTE: OCTOBER 18, 2023@13:32 ENTRY DATE: OCTOBER 18, 2023@13:32:12 AUTHOR: GABY ARIAS EXP COSIGNER: URGENCY: STATUS: COMPLETED Pt. here to clinic to receive his Denosumab injection per Dr. Cuello. Labs reviewed by Dr. Cuello prior to injection. Diagnosis: OSTEOPOROSIS Denosumab 60mg/ml given subcutaneous left upper outer arm for Osteoporosis. LOT: [id number] EXP: 12/16/2025 [facility] Labs: Calcium: 9.1 Date: 10/10/2023 Vitamind: 41 Date: 10/10/2023 Pt. tolerated procedure well. Instructions given to patient on possible side effects and to call doctor if any occur or seek medical attention if serious side efects. Next injection in 6 months April 2024. Will remind patient one month before next injection to have labs completed. /thomas/ GABY ARIAS RN Signed: 10/18/2023 13:33 [facility]
--- OUTSIDE RECORDS SUMMARY | 2024-06-14 13:19 | XMS_ITS | Encounter Summary ---
Author Name [facility] Address [address] [place] [id number] Care Team Providers Care Camper Assembler Name Role Phone TOÑO CAI Primary Care [...] Relationship to Policy Wen [place] SUPPLEMEN MASTER PSUED O MEDEX BRONZ E Mar 19, 2004 [id number] HOLLIE SHEPHERD PATIENT [place] SUPPLEMEN MASTER MEDEX BRONZ E Mar 19, 2004 [id number] [phone] HOLLIE SHEPHERD PATIENT [place] SUPPLEMEN MASTER MEDEX BRONZ E Mar 19, 2004 [id number] [phone] HOLLIE SHEPHERD PATIENT BCBS [facility] MEDICARE SUPPLEMEN MASTER PSUED O MEDEX BRONZ E Mar 19, 2004 [id number] HOLLIE SHEPHERD PATIENT MEDICARE (WNR) MEDICARE (M) PART B Mar 19, 2004 PART B [id number] [phone] CORA,HOLLIE ALD PATIENT MEDICARE (WNR) MEDICARE (M) PART B Mar 19, 2004 PART B [id number] [phone] HOLLIE SHEPHERD ALD PATIENT MEDICARE (WNR) MEDICARE (M) PART B Mar 19, 2004 PART B [id number] CORAHOLLIE SILVA ALD PATIENT MEDICARE (WNR) MEDICARE (M) PART A Feb 17, 2003 PART A [id number] CORAHOLLIE SILVA ALD PATIENT MEDICARE (WNR) MEDICARE (M) PART A Feb 17, 2003 PART A [id number] [phone] HOLLIE SHEPHERD ALD PATIENT MEDICARE (WNR) MEDICARE (M) PART A Feb 17, 2003 PART A [id number] HOLLIE SHEPHERD ALD PATIENT MEDICARE (WNR) MEDICARE (M) PART A Feb 17, 2003 PART A [id number] HOLLIE SHEPHERD ALD PATIENT MEDICARE (WNR) MEDICARE (M) PART B Feb 17, 2003 PART B [id number] HOLLIE SHEPHERD PATIENT MEDICARE (WNR) MEDICARE (M) PART A Feb 17, 2003 PART A [id number] HOLLIE SHEPHERD PATIENT MEDICARE (WNR) MEDICARE (M) PART B Feb 17, 2003 PART B [id number] [phone] HOLLIE SHEPHERD PATIENT Selected Encounter This section includes the information on record at [place] for the Encounter. Date/Time Encounter Type Encounter Description Reason Provider Source November 01, 2023 10:30 AM OFFICE O/P EST LOW 20 [facility] - IND ICD-10-CM F33.9 Major depressive disorder, recurrent, unspecified MEREDITH,GIHYUN E Encounter Template Text not used by [place] Assessments - Encounter Diagnoses This section includes the primary and secondary diagnoses documented for the Encounter. Date/Time Primary/Secondary Diagnosis Diagnosis Name Provider Source November 14, 2023 05:26 PM PRIMARY Major depressive disorder, recurrent, unspecified MEREDITH,GIHYUN [facility] Plan of Treatment: Future Appointments (+ 6 months) and Future Tests (+/- 45 days) The Plan of Treatment section includes future care activities for the patient from all [place] treatmentf[facility] hospital. This section includes future appointments and future orders which are active, pending or scheduled. Future Appointments This section includes appointments that were scheduled to occur 6 months from the date of the Encounter, up to a maximum of 20 appointments. The data comes from all [place] treatment facilities. Appointment Date/Time Appointment Type Appointme nt Facility Name November 02, 2023 11:15 AM AMBULATORY [facility]IC[facility] [place] [facility] November 02, 2023 11:30 AM AMBULATORY [facility] MEDIC[facility] [place] [facility] November 06, 2023 02:50 PM AMBULATORY - MEDIC[facility] [place] [facility] Nov 22, 2023 10:00 AM AMBULATORY - MEDIC[facility] [place] [facility] Nov 27, 2023 02:00 PM AMBULATORY - MEDICINE [facility] [place] [facility] Feb 12, 2024 10:00 AM AMBULATORY - MEDIC[facility] [place] [facility] Feb 28, 2024 01:00 PM [place] [facility] Feb 28, 2024 01:00 PM AMBULATORY - PS[facility]CHIATRY [facility] [place] [facility] Mar 25, 2024 10:00 AM AMBULATORY [facility]IC[facility] [place] [facility] Mar 25, 2024 10:30 AM AMBULATORY [facility]IC[facility] [place] [facility] Apr 02, 2024 02:00 PM AMBULATORY - [facility]IC[facility] [place] [facility] Apr 04, 2024 02:00 PM AMBULATORY - [facility]IC[facility] [place] [facility] Apr 08, 2024 01:00 PM AMBULATORY - REHAB MEDICIN [facility] [place] [facility] Apr 12, 2024 09:45 AM AM[facility]ULATORY - [facility]IC[facility] [place] [facility] Apr 16, 2024 10:00 AM AMBULATORY - REHAB MEDICIN [facility] [place] [facility] May 02, 2024 10:00 AM AMBULATORY - REHAB MEDICIN [facility] [place] [facility] Active, Pending, and Scheduled Orders This section includes a listing of several types of active, pending, and scheduled orders, including clinic medications orders, diagnostic test orders, procedure orders and consult orders; where the start date of the order is 45 days before the date of the Encounter or 45 days after the date of theEncounter. The data comes from all [place] treatment facilities. Test Date/Time Test Type Test Details Facility Name Oct 10, 2023 12:00 AM Laboratory - Chemi stry Order SURGICAL PATH ORDER SURG PATH SPEC. UNKNOWN SP [facility] Lab Results: +/- 30 days of the encounter This section includes the Chemistry and Hematology Lab Results on record with [place] for the patient. Radiology Reports and Pathology Reports are provided separately, in subsequent sections. Lab Results This section contains the Chemistry/Hematology Results that were resulted 30 days before or 30 daysafter the date of the Encounter. Date/Time Source Result Type Result - Unit Interpretation Reference Range Comment Oct 11, 2023 01:27 PM [facility] MICROALBUMIN CREATININE RATIO PANEL Specimen Type: URINE No comment entered. Ordering Provider: ALLIE CUELLO Report Released Date/Time: Jul 26, 2023 10:12 AM Reporting Lab: [facility] [address] [facility] [address] Performing Lab: [facility] [address] [facility] [address] MICROALBUMIN/C REATININE RATIO 7.1 mg/g 0-29.9 MICROALBUMIN,Q UANTITATIVE 0.8 mg/dL RR UNAVAIL CREATININE URINE 113.29 mg/dL Oct 10, 2023 03:42 PM [facility] LIVER FUNCTION Specimen Type: SERUM Comment: *BASIC METABOLIC PANEL (fasting) Not Performed: Oct 10, 2023@15:51 b *MILKING MACHINE OPERATOR Reason: dup *LIPID PANEL FASTING Not Performed: Oct 10, 2023@15:51 by [id number] *MILKING MACHINE OPERATOR Reason: dup Ordering Provider: JUAN LUIS CAI Report Released Date/Time: Jun 05, 2023 11:22 AM Reporting Lab: [facility] [address] [facility] [address] Performing Lab: [facility] [address] [facility] [address] PROTEIN,TOTAL 6.0 g/dL 6.0-8.3 ALBUMIN 4.2 g/dL 3.5-5.0 ALKALINE PHOSPHATASE 89 U/L 40-150 AST 29 U/L 5-34 ALT 29 U/L BILIRUBIN, TOTAL 1.3 mg/dL H 0.2-1.2 BILIRUBIN, DIRECT 0.5 mg/dL 0-0.5 Oct 10, 2023 03:41 PM [facility] TESTOSTERONE, TOTAL (V) Specimen Type: SERUM No comment entered. Ordering Provider: ALLIE CUELLO Report Released Date/Time: Jul 26, 2023 10:12 AM Reporting Lab: [address] [address] Performing Lab: [address] [address] TESTOSTERONE, TOTAL (V) 755.20 ng/dL 220.00-892 .00 Oct 10, 2023 03:41 PM [facility] PSA Specimen Type: SERUM No comment entered. Ordering Provider: ALLIE CUELLO Report Released Date/Time: Jul 26, 2023 10:12 AM Reporting Lab: [address] [address] Performing Lab: [address] [address] PSA 4.74 ng/mL H 0.00-4.00 Oct 10, 2023 03:41 PM [facility] HEMOGLOBIN A1C PANEL Specimen Type: BLOOD [...] 26, 2023 10:12 AM Reporting Lab: [address] [address] Performing Lab: [address] [address] HEMOGLOBIN A1C 6.7 H 4.0-5.6 Oct 10, 2023 03:41 PM [facility] LIPID PANEL FASTING Specimen Type: SERUM No comment entered. Ordering Provider: ALLIE CUELLO Report Released Date/Time: Jul 26, 2023 10:12 AM Reporting Lab: [facility] [address] [facility] [address] Performing Lab: [facility] [address] [address] CHOLESTEROL 96 mg/dL TRIGLYCERIDE 101 mg/dL 0-150 LDL calculated 44 mg/dL 0-129 CHOL/HDL 3.0 HDL CHOLESTEROL 32 mg/dL L 40-60 Oct 10, 2023 03:41 PM [facility] CALCIUM Specimen Type: SERUM No comment entered. Ordering Provider: ALLIE CUELLO Report Released Date/Time: Oct 10, 2023 07:35 AM Reporting Lab: [facility] [address] Performing Lab: [facility] [address] CALCIUM 9.1 mg/dL 8.5-10.2 Oct 10, 2023 03:41 PM [facility] CBC Specimen Type: BLOOD No comment entered. Ordering Provider: ALLIE CUELLO Report Released Date/Time: Jul 26, 2023 10:12 AM Reporting Lab: [facility] [address] [address] Performing Lab: [facility] [address] [address] WBC 5.42 10*3/uL 4.50-11.00 RBC 4.87 10*6/uL 4.23-5.66 HGB 12.5 g/dL L 12.8-17 HCT 39.4 39.2-50.4 MCV 80.9 fL L 82-99 MCHC 31.7 g/dL 30.8-35.1 PLT 123 10*3/uL L 140-360 RDW-CV 14.7 12.0-16.0 MCH 25.7 pg L 26.2-32.6 Oct 10, 2023 03:41 PM [facility] VITAMIN D (25-OH) Specimen Type: SERUM No comment entered. Ordering Provider: ALLIE CUELLO Report Released Date/Time: Oct 10, 2023 07:35 AM Reporting Lab: [address] [address] Performing Lab: [address] [address] VITAMIN D (25-OH) 41 ng/mL 20-50 Oct 10, 2023 03:41 PM [facility] BASIC METABOLIC PANEL (fasting) Specimen Type: SERUM No comment entered. Ordering Provider: ALLIE CUELLO Report Released Date/Time: Jul 26, 2023 10:12 AM Reporting Lab: [address] [address] Performing Lab: [address] [address] UREA NITROGEN 22 mg/dL 7-25 GLUCOSE 172 mg/dL H 65-100 SODIUM 137 mmol/L 135-145 POTASSIUM 4.0 mmol/L 3.5-5.0 CHLORIDE 101 mmol/L 100-110 CO2 26 meq/L 20-30 CREATININE, Serum 1.26 mg/dL 0.50-1.40 eGFR(CKD-EPI 2020) 56 mL/min L >60 Advance Directives: All historical and current Section Date Range: From patient's date of to the date document was created. This section includes ALL of a patient's completed or amended [place] Advance and Rescinded Directives. The entries below indicate that a directive exists for the patient, but an actual copy is not included with this document. The data comes from all [place] facilities. Date Advance Directives Provider Source Jun 02, 2023 ADVANCE DIRECTIVE JENNIFER QUIROS [facility] Pathology Reports: +/- 30 days of the [...] the Encounter. The data comes from all [place] treatment facilities. Date/Time Pathology Report Provider Source Oct 12, 2023 10:54 AM LR SURGICAL PATHOLOGY REPORT: LOCAL TITLE: LR SURGICAL PATHOLOGY REPORT STANDARD TITLE: PATHOLOGY DIAGNOSTIC STUDY REPORT DATE OF NOTE: OCT 12, 2023@10:54:23 ENTRY DATE: OCT 12, 2023@10:54:23 AUTHOR: LESTER ANDERSON MD EXP COSIGNER: URGENCY: STATUS: COMPLETED $APHDR Reporting Lab: [facility] [CLIA# [id number]] [address] [place] [address] - - - - - - - [...] - - - PATHOLOGY REPORT Accession No. [facility] - - - - - - - [...] - - - PATHOLOGY REPORT Accession No. [facility] 24 [id number] - - - - - - - - - - - - - - - - - - - - - - - - - - - - - - - - - - - - - - - - Gross description: [facility] 24 [id number];A;1;CORA,Nisa This is a [facility] case number [facility] [id number]. Received in formalin is a [...] lateral and deep tissue margins. CPT codes 19919s0 /thomas/ LESTER ANDERSON MD Board Certified Dermatopathologist Signed Oct 12, 2023@10:54 Performing Laboratory: Surgical Pathology Report Performed By: [facility] [CLIA# [id number]] [address] [place] [address] $FTR - - - - - - [...] - - BEBO SHEPHERD STANDARD FORM 515 ID:[id number] SEX:M :1940 AGE: 83 LOC:CWM/NO/CVT/DERMATOLOGY/N P PCP: RUBY Long /thomas/ LESTER ANDERSON MD Board Certified Dermatopathologist Signed: 10/12/2023 10:54 LESTER ANDERSON MD [facility] Encounter Notes: All associated encounter notes This section contains the clinical notes associated to the Encounter. Date/Time Encounter Note(s) Provider Source November 01, 2023 12:41 PM MENTAL HEALTH NOTE : LOCAL TITLE: TELEMENTAL HEALTH NOTE STANDARD TITLE: MENTAL HEALTH NOTE DATE OF NOTE: NOVEMBER 01, 2023@12:41 ENTRY DATE: NOVEMBER 01, 2023@12:41:22 AUTHOR: RADHA HARPER EXP COSIGNER: URGENCY: STATUS: COMPLETED Clinical services provided by Radha Harper MD, staff psychiatrist. Clinical services are being provided via Telemental Health from the [facility] [employer] to the [facility] through the [facility] Clinical Resource Hub. was seen on NOVEMBER 01, 2023 by [facility] Clinical Resource Hub provider Radha Harper MD via telehealth in the following clinic: CWM V01 [facility] MALLORY KOHLI 04 PT CWM V01 [facility] MALLORY MAGDALENO MD 04 PT CWM GO V01 [facility] MH SHARLA KOHLI 04 PT CWM PO V01 CH[facility] MH SHARLA KOHLI 04 PT CWM FO V01 [facility] MH SHARLA KOHLI 04 PT CWM WO V01 CH[facility] MH SHARLA KOHLI 04 PT CWM SO V01 CHR MH SHARLA KOHLI 04 PT Note title: Psychiatry Note Please see JLV for complete clinic note at: [facility] Service Delivery Method: CVT Length of Service: 20-30 minutes /es/ Radha Harper MD PSYCHIATRIST, PSYCHIATRY Signed: 11/01/2023 12:41 RADHA HARPER [facility]
--- OUTSIDE RECORDS SUMMARY | 2024-06-14 13:19 | XMS_ITS ---
Author Name [facility] [place] [facility] [place] [facility] [place] Address [address] [place] [address] Care Team Providers [employer] In[employer] Name Role Phone TOÑO CAI Primary Care [...] Relationship to Policy Wen [place] SUPPLEMEN MASTER PSUED O MEDEX BRONZ E Mar 19, 2004 [id number] [phone] HOLLIE SHEPHERD PATIENT [place] SUPPLEMEN MASTER MEDEX BRONZ E Mar 19, 2004 [id number] [phone] HOLLIE SHEPHERD PATIENT [place] SUPPLEMEN MASTER MEDEX BRONZ E Mar 19, 2004 [id number] [phone] HOLLIE SHEPHERD PATIENT BCBS [facility] MEDICARE SUPPLEMEN MASTER PSUED O MEDEX BRONZ E Mar 19, 2004 [id number] [phone] HOLLIE SHEPHERD PATIENT MEDICARE (WNR) MEDICARE (M) PART B Mar 19, 2004 PART B [id number] CORAHOLLIE SILVA PATIENT MEDICARE (WNR) MEDICARE (M) PART B Mar 19, 2004 PART B [id number] CORAHOLLIE SILVA ALD PATIENT MEDICARE (WNR) MEDICARE (M) PART B Mar 19, 2004 PART B [id number] CORAHOLLIE SILVA ALD PATIENT MEDICARE (WNR) MEDICARE (M) PART A Feb 17, 2003 PART A [id number] CORAHOLLIE ALD PATIENT MEDICARE (WNR) MEDICARE (M) PART A Feb 17, 2003 PART A [id number] CORAHOLLIE SILVA ALD PATIENT MEDICARE (WNR) MEDICARE (M) PART A Feb 17, 2003 PART A [id number] CORAHOLLIE SILVA PATIENT MEDICARE (WNR) MEDICARE (M) PART A Feb 17, 2003 PART A [id number] CORAHOLLIE SILVA PATIENT MEDICARE (WNR) MEDICARE (M) PART B Feb 17, 2003 PART B [id number] [phone] CORAHOLLIE SILVA PATIENT MEDICARE (WNR) MEDICARE (M) PART A Feb 17, 2003 PART A [id number] [phone] HOLLIE SHEPHERD PATIENT MEDICARE (WNR) MEDICARE (M) PART B Feb 17, 2003 PART B [id number] HOLLIE SHEPHERD PATIENT Selected Encounter This section includes the information on record at [place] for the Encounter. Date/Time Encounter Type Encounter Description Reason Provider Source November 01, 2023 11:15 AM OFF/OP EST OCTOBER X REQ PHY/QHP PRIMARY CARE/MEDICINE ICD-10-CM Z04.9 Encounter for examination and observation for unsp reason URI TAL[facility]OT [facility] Encounter Template Text not used by [place] Assessments - Encounter Diagnoses This section includes the primary and secondary diagnoses documented for the Encounter. Date/Time Primary/Secondary Diagnosis Diagnosis Name Provider Source Nov 24, 2023 03:44 PM PRIMARY Encounter for examination and observation for unsp reason URI [facility]AL[facility]OT [place] [facility] [place] [facility] Nov 24, 2023 03:44 PM SECONDARY Counseling, unspecified URI TALBOT [facility] [place] [facility] Nov 24, 2023 03:44 PM SECONDARY Encounter for change or removal of nonsurg wound dressing URI TALBOT [facility] [place] [facility] Plan of Treatment: Future Appointments (+ 6 months) and Future Tests (+/- 45 days) The Plan of Treatment section includes future care activities for the patient [facility] [place] [facility] [place] This section includes future appointments and future [...] - MEDICINE [place] [facility] [place] [facility] November 02, 2023 11:30 AM AMBULATORY - MEDICINE [place] [facility] [place] [facility] November 06, 2023 02:50 PM AMBULATORY - MEDICINE [place] [facility] [place] [facility] Nov 22, 2023 10:00 AM AMBULATORY - MEDICINE [place] [facility] [place] [facility] Nov 27, 2023 02:00 PM AMBULATORY - MEDICINE [place] [facility] [place] [facility] Feb 12, 2024 10:00 AM AMBULATORY - MEDICINE [place] [facility] [facility] Feb 28, 2024 01:00 PM AMBULATORY - [place] [facility] Feb 28, 2024 01:00 PM AMBULATORY - PSYCHIATRY [place] [facility] [place] [facility] Mar 25, 2024 10:00 AM AMBULATORY - MEDICINE [place] [facility] [place] [facility] Mar 25, 2024 10:30 AM AMBULATORY - MEDICINE [place] [facility] [facility] Apr 02, 2024 02:00 PM AMBULATORY - MEDICINE [place] [facility] [facility] Apr 04, 2024 02:00 PM AMBULATORY - MEDICINE [place] [facility] [facility] Apr 08, 2024 01:00 PM AMBULATORY - REHAB MEDICIN [place] [facility] [place] [facility] Apr 12, 2024 09:45 AM AM[facility]ULAT[facility] [place] [facility] Apr 16, 2024 10:00 AM [facility] May 02, 2024 10:00 AM AMBULATORY - REHAB MEDICIN E [facility] Active, Pending, and Scheduled Orders This section [...] PATH ORDER SURG PATH SPEC. UNKNOWN SP [facility] Lab Results: +/- 30 days of the encounter This section includes the Chemistry and Hematology Lab Results on record with [place] for the patient. Radiology Reports and Pathology Reports are provided separately, in subsequent sections. Lab Results This section contains the Chemistry/Hematology Results that were resulted 30 days before or 30 daysafter the date of the Encounter. Date/Time Source Result Type Result - Unit Interpretation Reference Range Comment Oct 11, 2023 01:27 PM [facility] MICROALBUMIN CREATININE RATIO PANEL Specimen Type: URINE No comment entered. Ordering Provider: ALLIE CUELLO Report Released Date/Time: Jul 26, 2023 10:12 AM Reporting Lab: [facility] [address] [facility] [address] Performing Lab: [facility] [address] [facility] [address] MICROALBUMIN/C REATININE RATIO 7.1 mg/g 0-29.9 MICROALBUMIN,Q UANTITATIVE 0.8 mg/dL RR UNAVAIL CREATININE URINE 113.29 mg/dL Oct 10, 2023 03:42 PM [facility] LIVER FUNCTION Specimen Type: SERUM Comment: *BASIC METABOLIC PANEL (fasting) Not Performed: Oct 10, 2023@15:51 b *GROUNDHAND Reason: dup *LIPID PANEL FASTING Not Performed: Oct 10, 2023@15:51 by [id number] *GROUNDHAND Reason: dup Ordering Provider: JUAN LUIS CAI Report Released Date/Time: Jun 05, 2023 11:22 AM Reporting Lab: [address] [address] Performing Lab: [address] [address] PROTEIN,TOTAL 6.0 g/dL 6.0-8.3 ALBUMIN 4.2 g/dL 3.5-5.0 ALKALINE PHOSPHATASE 89 U/L 40-150 AST 29 U/L 5-34 ALT 29 U/L BILIRUBIN, TOTAL 1.3 mg/dL H 0.2-1.2 BILIRUBIN, DIRECT 0.5 mg/dL 0-0.5 Oct 10, 2023 03:41 PM [facility] TESTOSTERONE, TOTAL (V) Specimen Type: SERUM No comment entered. Ordering Provider: ALLIE CUELLO Report Released Date/Time: Jul 26, 2023 10:12 AM Reporting Lab: [address] [address] Performing Lab: [facility] [address] [facility] [address] TESTOSTERONE, TOTAL (WHV) 755.20 ng/dL 220.00-892 .00 Oct 10, 2023 03:41 PM [facility] PSA Specimen Type: SERUM No comment entered. Ordering Provider: ALLIE CUELLO Report Released Date/Time: Jul 26, 2023 10:12 AM Reporting Lab: [address] [address] Performing Lab: [address] [address] PSA 4.74 ng/mL H 0.00-4.00 Oct 10, 2023 03:41 PM [facility] LIPID PANEL FASTING Specimen Type: SERUM No comment entered. Ordering Provider: ALLIE CUELLO Report Released Date/Time: Jul 26, 2023 10:12 AM Reporting Lab: [address] [address] Performing Lab: [address] [address] CHOLESTEROL 96 mg/dL TRIGLYCERIDE 101 mg/dL 0-150 LDL calculated 44 mg/dL 0-129 CHOL/HDL 3.0 HDL CHOLESTEROL 32 mg/dL L 40-60 Oct 10, 2023 03:41 PM [facility] HEMOGLOBIN A1C PANEL Specimen Type: BLOOD Comment: [...] Jul 26, 2023 10:12 AM Reporting Lab: [address] [address] Performing Lab: [address] [address] HEMOGLOBIN A1C 6.7 H 4.0-5.6 Oct 10, 2023 03:41 PM [facility] CBC Specimen Type: BLOOD No comment entered. Ordering Provider: ALLIE CUELLO Report Released Date/Time: Jul 26, 2023 10:12 AM Reporting Lab: [address] [address] Performing Lab: [address] [address] WBC 5.42 10*3/uL 4.50-11.00 RBC 4.87 10*6/uL 4.23-5.66 HGB 12.5 g/dL L 12.8-17 HCT 39.4 39.2-50.4 MCV 80.9 fL L 82-99 MCHC 31.7 g/dL 30.8-35.1 PLT 123 10*3/uL L 140-360 RDW-CV 14.7 12.0-16.0 MCH 25.7 pg L 26.2-32.6 Oct 10, 2023 03:41 PM [facility] CALCIUM Specimen Type: SERUM No comment entered. Ordering Provider: ALLIE CUELLO Report Released Date/Time: Oct 10, 2023 07:35 AM Reporting Lab: [facility] [address] [facility] [address] Performing Lab: [address] [address] CALCIUM 9.1 mg/dL 8.5-10.2 Oct 10, 2023 03:41 PM [facility] VITAMIN D (25-OH) Specimen Type: SERUM No comment entered. Ordering Provider: ALLIE CUELLO Report Released Date/Time: Oct 10, 2023 07:35 AM Reporting Lab: [facility] [address] [facility] [address] Performing Lab: [address] [address] VITAMIN D (25-OH) 41 ng/mL 20-50 Oct 10, 2023 03:41 PM [facility] BASIC METABOLIC PANEL (fasting) Specimen Type: SERUM No comment entered. Ordering Provider: ALLIE CUELLO Report Released Date/Time: Jul 26, 2023 10:12 AM Reporting Lab: [facility] [address] [facility] [address] Performing Lab: [address] [address] UREA NITROGEN 22 mg/dL 7-25 GLUCOSE 172 [...] 76 133/77 16 96 2 184 31 [place] [facility] [place] [facility] Social History: Smoking Status (Most [...] took place. Date/Time Current Smoking Status Comment [facility] Jun 05, 2023 11:00 AM [place]-TOBACCO FORMER [facility]ER [place] [facility] Tobacco Use History This section includes a history of the smoking, or tobacco-related health factors, that were collected on or before the date of the Encounter. The data comes from the [place] facility where the Encounter took place. Date/Time Smoking Status/Tobac co Use Comment Facility Jun 05, 2023 11:00 AM VA-TOBACCO QUIT 15 YRS OR MORE [place] [facility] [place] [facility] Jun 06, 2022 01:00 PM VA-TOBACCO FORMER USER [place] [facility] [place] [facility] Jun 06, 2022 01:00 PM VA-TOBACCO QUIT 15 YRS OR MORE [place] [facility] [place] [facility] Jun 30, 2021 02:37 PM VA-TOBACCO FORMER USER [place] [facility] [place] [facility] Jun 30, 2021 02:37 PM VA-TOBACCO QUIT 5 TO < 15 YRS [place] [facility] [place] [facility] May 22, 2020 03:30 PM VA-TOBACCO NEVER USED [place] [facility] [place] [facility] May 08, 2018 02:03 PM VA-TOBACCO FORMER USER [place] [facility] [place] [facility] May 08, 2018 02:03 PM VA-TOBACCO QUIT 15 YRS OR MORE [facility] [place] [facility] November 10, 2017 02:33 PM QUIT TOBACCO USE > 7 YEARS AGO [facility] [place] [facility] October 21, 2016 01:55 PM QUIT TOBACCO USE > 7 YEARS AGO [facility] [place] [facility] Sep 18, 2015 11:24 AM QUIT TOBACCO USE > 7 YEARS AGO stopped 50 years ago [facility] [place] [facility] May 19, 2005 08:01 AM HISTORY OF SMOKING [facility] [place] [facility] May 31, 2004 01:02 PM HISTORY OF SMOKING [facility] Jun 04, 2003 07:57 AM HISTORY OF SMOKING [facility] Jun 03, 2002 01:11 PM HISTORY OF SMOKING [facility] Jun 03, 2002 01:11 PM QUIT TOBACCO USE > 7 YEARS AGO [facility] Advance Directives: All historical and current Section [...] Jun 02, 2023 ADVANCE DIRECTIVE JENNIFER QUIROS [facility] Pathology Reports: +/- 30 days of [...] COSIGNER: URGENCY: STATUS: COMPLETED $APHDR Reporting Lab: [facility] [CLIA# [id number]] [address] [place] [address] - - - - - - - [...] - - - PATHOLOGY REPORT Accession No. JENNIFER [id number] - - - - - [...] - - - - BRIEF CLINICAL HISTORY: [facility] 24 174 SPECIMEN A: CENTRAL UPPER FOREHEAD 1CM ERYTHERMATOUS PAPULE SPECIMEN B: R TEMPORAL SCALP 3CM HYPERPIGMENTED PLAQUE - - - - - - - - - - - - - - - - - - - - - - - - - - - - - - - - - - - - - - - - PREOPERATIVE DIAGNOSIS: [place] 24 174 SPECIMEN A: R/O SCC SPECIMEN [...] - - - PATHOLOGY REPORT Accession No. [facility] 24 174 - - - - - - - - - - - - - - - - - - - - - - - - - - - - - - - - - - - - - - - - Gross description: [facility] 24 3218;A;1;Nisa SHEPHERD This is a [facility] case number [facility] 24 [id number]. Received in formalin is [...] lateral and deep tissue margins. CPT codes 55444o8 /es/ LESTER ANDERSON MD Board Certified Dermatopathologist Signed Oct 12, 2023@10:54 Performing Laboratory: Surgical Pathology Report Performed By: [facility] [CLIA# [id number]] [address] [place] [address] $FTR - - - - - - [...] - - - - - - - CORA,BEBO R STANDARD FORM 515 ID:[id number] SEX:M :1940 AGE: 83 LOC:CWM/NO/CVT/DERMATOLOGY/N P PCP: RUBY Long /thomas/ LESTER ANDERSON MD Board Certified Dermatopathologist Signed: 10/12/2023 10:54 LESTER ANDERSON [facility] Encounter Notes: All associated encounter notes This section contains the clinical notes associated to the Encounter. Date/Time Encounter Note(s) Provider Source November 01, 2023 11:26 AM PRIMARY CARE NOTE: LOCAL TITLE: WALK-IN NOTE PRIMARY CARE (T) STANDARD TITLE: PRIMARY CARE NOTE DATE OF NOTE: NOVEMBER 01, 2023@11:26 ENTRY DATE: NOVEMBER 01, 2023@11:26:13 AUTHOR: CAIT TALBOT COSIGNER: URGENCY: STATUS: COMPLETED Patient identity was verified using two identifiers, per [place] Policy: Full Name, Date of BEBO SHEPHERD is a 83 year old who presents to the clinic for dressing change, bursitis Visit Type: Clinic Unscheduled Primary Care Clinic Triage: S: 9 days ago loss of balance and scraped right arm on dresser. has been preforming dressing changes at home. Denies fever chills, odor or s/s of infection. Right elbow also has been red and swollen for approximately 3 weeks and recently become more painful. O: Vital Signs: taken Current Home Treatment: Allergies: PENICILLIN, ZOSYN, METFORMIN Medications: Active Outpatient Medications (including Supplies): Active Outpatient [...] TAB 5MG BY MOUTH TWICE ACTIVE DAILY Since you last saw your [place] PC Provider, did you have any of the following? A: Right elbow red and swollen painful to touch, right upper arm skin tear see below P: Evaluation by Sick call provider. Imed consent to drain fluid from elbow Dressing change Location: Right upper arm Type of Wound: skin tear Wounds: acute Measurement: 4 inches by 1.75 inches width Wound Bed: (slough, epithelial, granulation), Drainage: serous-clear, sanguineous-bright red, no odor Surrounding Tissue Geno wound area: Cleansed the wound with normal saline solution Applied Xeroform, non-adherent and dry clean dressing . Patient Education: Explained the importance of regular dressing changes and keeping the wound clean and dry. Discussed signs of infection, such as increased pain, redness, or foul odor, and instructed the patient to seek immediate medical attention if these occur. Emphasized the importance of maintaining a healthy diet, staying hydrated, and refraining from smoking to promote optimal wound healing Provided guidance for worsening symptoms: Deland advised to call facilities [place] Clinical Contact [facility] or seek immediate medical attention for new or worsening symptoms Comment: Appointment Date/Time: 11/01/23 Sick Call provider Patient Education: wound healing, home care instructions. dressing changes. S/S of infection /es/ CAIT TALBOT REGISTERED NURSE Signed: 11/01/2023 13:09 CAIT TALBOT [place] [facility]
--- OUTSIDE RECORDS SUMMARY | 2024-06-14 13:20 | XMS_ITS ---
Author Name [facility] [place] Organization [facility] [place] Address [address] [place] [id number] Care Team Providers Care Brine Maker Name Role Phone TOÑO CAI Primary Care [...] Relationship to Policy Wen LUKE BCBS OF [place] MEDICARE SUPPLEMEN MASTER PSUED O MEDEX [facility] E Mar 19, 2004 [id number] [phone] HOLLIE SHEPHERD PATIENT [place] SUPPLEMEN MASTER MEDEX [place] E Mar 19, 2004 [id number] [phone] HOLLIE SHEPHER[place] SUPPLE[place] MASTER MEDEX [place] E Mar 19, 2004 [id number] [phone] HOLLIE SHEPHERD PATIENT BCBS [facility] MEDICARE SUPPLEMEN MASTER PSUED O MEDEX [place] E Mar 19, 2004 [id number] [phone] HOLLIE SHEPHERD PATIENT MEDICARE (WNR) MEDICARE (M) PART B Mar 19, 2004 PART B [id number] HOLLIE SHEPHERD PATIENT MEDICARE (WNR) MEDICARE (M) PART B Mar 19, 2004 PART B [id number] HOLLIE SHEPHERD PATIENT MEDICARE (WNR) MEDICARE (M) PART B Mar 19, 2004 PART B [id number] CORAHOLLIE SILVA PATIENT MEDICARE (WNR) MEDICARE (M) PART A Feb 17, 2003 PART A [id number] CORAHOLLIE SILVA PATIENT MEDICARE (WNR) MEDICARE (M) PART A Feb 17, 2003 PART A [id number] HOLLIE SHEPHERD PATIENT MEDICARE (WNR) MEDICARE (M) PART A Feb 17, 2003 PART A [id number] [phone] HOLLIE SHEPHERD PATIENT MEDICARE (WNR) MEDICARE (M) PART A Feb 17, 2003 PART A [id number] [phone] HOLLIE HSEPHERD PATIENT MEDICARE (WNR) MEDICARE (M) PART B Feb 17, 2003 PART B [id number] [phone] HOLLIE SHEPHERD PATIENT MEDICARE (WNR) MEDICARE (M) PART A Feb 17, 2003 PART A [id number] [phone] HOLLIE SHEPHERD PATIENT MEDICARE (WNR) MEDICARE (M) PART B Feb 17, 2003 PART B [id number] HOLLIE SHEPHERD PATIENT Selected Encounter This section includes the information on record at [place] for the Encounter. Date/Time Encounter Type Encounter Description Reason Provider Source Nov 27, 2023 02:00 PM OFFICE O/P EST LOW 20 MIN ENDOCRINOLOGY ICD-10-CM M81.0 Age-related osteoporosis w/o current pathological fracture ALLIE CUELLO Mikey Encounter Template Text not used by [place] Assessments - Encounter Diagnoses This section includes the primary and secondary diagnoses documented for the Encounter. Date/Time Primary/Secondary Diagnosis Diagnosis Name Provider Source Dec 18, 2023 01:23 PM PRIMARY Age-related osteoporosis w/o current pathological fracture DAWSONALLIE [facility] [place] [facility] Dec 18, 2023 01:23 PM SECONDARY Testicular hypofunction ALLIE CUELLO [place] [facility] [place] [facility] Plan of Treatment: Future Appointments (+ 6 months) and Future Tests (+/- 45 days) The Plan of Treatment section includes future care activities for the [facility] This section includes future appointments and future orders which are active, pending or scheduled. Future Appointments This section includes appointments that were scheduled to occur 6 months from the date of the Encounter, up to a maximum of 20 appointments. The data comes from all [place] treatment facilities. Appointment Date/Time Appointment Type Appointme nt Facility Name Feb 12, 2024 10:00 AM AMBULATORY - MEDICINE [place] [facility] [place] [facility] Feb 28, 2024 01:00 PM AMBULATORY - [place]AT[place] [facility] Feb 28, 2024 01:00 PM AMBULATORY - PSYCHIATRY [place] [facility] [place] [facility] Mar 25, 2024 10:00 AM AMBULATORY - MEDICINE [place] [facility] [place] [facility] Mar 25, 2024 10:30 AM AMBULATORY - MEDICINE [place] [facility] [place] [facility] Apr 02, 2024 02:00 PM AMBULATORY - MEDICINE [place] [facility] [place] [facility] Apr 04, 2024 02:00 PM AMBULATORY - MEDICINE [place] [facility] [place] [facility] Apr 08, 2024 01:00 PM AMBULATORY - REHAB MEDICIN [facility] [place] [facility] Apr 12, 2024 09:45 AM AMBULATORY - MEDICINE [place] [facility] [place] [facility] Apr 16, 2024 10:00 AM AMBULATORY - REHAB MEDICIN E [facility] [place] [facility] May 02, 2024 10:00 AM AMBULATORY - REHAB MEDICIN E [facility] [place] [facility] May 08, 2024 10:00 AM AMBULATORY - REHAB MEDICIN E [place] [facility] [place] [facility] Vital Signs: All taken on the encounter date This section contains inpatient and outpatient Vital Signs collected on the date of the Encounter. Date/Time Temperature Pulse Blood Pressure Respiratory Rate SP02 Pain Height Weight Body Mass Index Source Nov 27, 2023 02:00 PM 97.9 83 116/67 16 97 2 64.5 176 30 [place] [facility] [place] [facility] Social History: Smoking Status (Most current) and Tobacco Use (All prior to encounter date) This section includes the most current, and the historical, smoking and tobacco- related health factors from the [place] facility where the Encounter took place. Current Smoking Status This section includes the most current smoking, or tobacco-related health factor, from the [place] facility where the Encounter took place. Date/Time Current Smoking Status Comment [facility] Jun 05, 2023 11:00 AM VA-TOBACCO FORMER USER [place] [facility] [place] [facility] Tobacco Use History This section includes a history of the smoking, or tobacco-related health factors, that were collected on or before the date of the Encounter. The data comes from the [place] facility where the Encounter took place. Date/Time Smoking Status/Tobac co Use Comment Facility Jun 05, 2023 11:00 AM VA-TOBACCO QUIT 15 YRS OR MORE [place] [facility] [place] [facility] Jun 06, 2022 01:00 PM VA-TOBACCO FORMER USER [facility] [place] [facility] Jun 06, 2022 01:00 PM VA-TOBACCO QUIT 15 YRS OR MORE [facility] [place] [facility] Jun 30, 2021 02:37 PM VA-TOBACCO FORMER USER [place] [facility] [place] [facility] Jun 30, 2021 02:37 PM VA-TOBACCO QUIT 5 TO < 15 YRS [place] [facility] [place] [facility] May 22, 2020 03:30 PM VA-TOBACCO NEVER USED [place] [facility] [place] [facility] May 08, 2018 02:03 PM VA-TOBACCO FORMER USER [facility] [place] [facility] May 08, 2018 02:03 PM VA-TOBACCO QUIT 15 YRS OR MORE [facility] [place] [facility] November 10, 2017 02:33 PM QUIT TOBACCO USE > 7 YEARS AGO [facility] [place] [facility] October 21, 2016 01:55 PM QUIT TOBACCO USE > 7 YEARS AGO [facility] [place] [facility] Sep 18, 2015 11:24 AM QUIT TOBACCO USE > 7 YEARS AGO stopped 50 years ago [facility] [place] [facility] May 19, 2005 08:01 AM HISTORY OF SMOKING [facility] [place] [facility] May 31, 2004 01:02 PM HISTORY OF SMOKING [facility] [place] [facility] Jun 04, 2003 07:57 AM HISTORY OF SMOKING [facility] Jun 03, 2002 01:11 PM HISTORY OF SMOKING [facility] Jun 03, 2002 01:11 PM QUIT TOBACCO USE > 7 YEARS AGO [facility] Advance Directives: All historical and current Section Date Range: From patient's date of to the date document was created. This section includes ALL of a patient's completed or amended [place] Advance and Rescinded Directives. The entries below indicate that a directive exists for the patient, but an actual copy is not included with this document. The data comes from all [place] facilities. Date Advance Directives Provider Source Jun 02, 2023 ADVANCE DIRECTIVE JENNIFER QUIROS [facility] Encounter Notes: All associated encounter notes This section contains the clinical notes associated to the Encounter. Date/Time Encounter Note(s) Provider Source Nov 26, 2023 04:44 PM PHYSICIAN NOTE: LOCAL TITLE: MD NOTE STANDARD TITLE: PHYSICIAN NOTE DATE OF NOTE: NOV 26, 2023@16:44 ENTRY DATE: NOV 26, 2023@16:44:37 AUTHOR: ALLIE CUELLO COSIGNER: URGENCY: STATUS: COMPLETED CC: Osteoporosis, hypogonadism HPI: Sees a non [place] record filing clerk for DM/insulin pump ?. Followed by me for osteoporosis, hypogonadism. Last denosumab dose 10/18/2023. Two falls in past year. inconsistent calcium fills. He endorses missing doses. He is using med organizers. Not much dairy in diet. Rising PSA. Testosterone was discontinued, and pt was referred to Urology. States he was told he likely had early prostate CA, no surgery at this time needed. All endocrine labs were reviewed with the patient. Oct 09 Oct 09 Aug 03 20232023 GLUCOSE 172 H 116 H mg/dL 65 - 100 BUN 22 17 mg/dL 7 - 25 CREATININE 1.26 0.89 mg/dL .5 - 1.4 Sodium 137 144 mmol/L 135 - 145 K+/Pot 4.0 4.1 mmol/L 3.5 - 5 CL 101 104 mmol/L 100 - 110 CO2 26 28 mEq/L 20 - 30 CA 9.1 mg/dL 8.5 - 10.2 Oct 10, 2023@15:41 VITAMIN D (25-OH): 41 ng/mL 20 - 50 Oct 09 FeJun 05 20242023 HGB 12.5 L 13.6 12.7 L g/dL 12.8 - 17 HCT 39.4 42.4 39.8 % 39.2 - 50.4 Oct 09 Apr 26 Reference 2023 2022 PSA 4.74 H 0.79 ng/mL 0 - 4 JUN 30, 2022 BONE DENSITY AXIAL HIPS,PELVIS.SPINE CLINICAL INDICATION: Osteoporosis? COMPARISON: None BMD measured in left femoral neck region of interest: 0.572 g/cm^2 T-score: -2.6 TOTAL HIP BMD measured in left total hip region of interest: 0.949 g/cm^2 T-score: -0.6 FOREARM BMD measured in the left mid radius (radius 33%) region of interest: 0.816 g/cm2 T-score: 0 Active problems - Computerized Problem List is the source for the followin. Elevated PSA 2. Aortic Valve Disorder (SCT 2450344) 3. Cerebrovascular disease 4. Chronic recurrent major depressive disorder 5. Insulin pump present 6. Hypertension 7. Family history of cancer of colon 8. Testicular hypofunction 9. Osteoporosis 10. Major depressive disorder 11. RA - Rheumatoid arthritis 12. History of colonic polyp 13. Diverticular disease of colon 14. Adjustment disorder 15. Hemorrhoids 16. Polymyalgia Rheumatica 17. Microscopic Hematuria 18. Rosacea 19. Hypertension (SNOMED CT 23912592) 20. Spinal Stenosis * 21. Hyperlipidemia (SNOMED CT 83223209) 22. Osteoarthritis * 23. Lower Back Pain * 24. Vertigo 25. Diabetes mellitus type 2 (SNOMED CT 30285585) 26. Gastroesophageal Reflux Disorder Active Outpatient Medications (including Supplies): ATORVASTATIN CALCIUM 80MG TAB TAKE ONE-HALF TABLET BY ACTIVE MOUTH ONCE DAILY CALCIUM 200MG (CA CITRATE-950MG) TAB TAKE FOUR TABLETS BY ACTIVE MOUTH TWICE DAILY CITALOPRAM HYDROBROMIDE 20MG TAB TAKE ONE-HALF TABLET BY ACTIVE (S) MOUTH ONCE DAILY FOR MOOD INSULIN,ASPART,HUMAN 100 UNIT/ML INJ INJECT 80 UNITS ACTIVE (S) SUBCUTANEOUSLY EVERY DAY DIRECTED FOR USE WITH [...] ONE TABLET BY MOUTH ONCE DAILY ACTIVE discontinued PREDNISONE 1MG TAB TAKE FOUR TABLETS BY MOUTH ONCE DAILY ACTIVE 3 mg SYRINGE 1ML LUER LOCK TIP USE 1 [...] 100MG TAB 100MG BY MOUTH DAILY ACTIVE > discontinued? Pt will call Non-VA OMEPRAZOLE 20MG EC CAP 20MG BY MOUTH EVERY DAY ACTIVE Non-VA PILOCARPINE HCL 5MG TAB 5MG BY MOUTH TWICE DAILY ACTIVE denosumab SHX: lives alone. Two children are supportive ROS: No cough or fever PE: affect pleasant appropriate speaking easily in full sentences Feet pulses mild decrease sensory to monofilament normal lesions no Medical Decision Making: Osteoporosis Advised of role of calcium and vitamin D in bone health. Continue calcium and vitamin D Denosumab next visit Hypogonadism No treatment due to PSA Lab calcium, BMP, vitamin D, osmoles next visit. F/u six months FTF Medication Reconciliation: Outpatient: Has the patient been taking medications as documented in the EMLR? No: Discrepencies were identified. See below. Essential Medication List for Review used to complete this medication reconciliation. INCLUDED IN THIS LIST: Alphabetical list of active outpatient prescriptions dispensed from this [facility] (local) and dispensed from another [place] or DoD facility (remote) as well as inpatient orders (local, pending and active), local clinic medications, locally documented non-VA medications, and local prescriptions that have or been discontinued in the past 90 days. - Discrepancies were identified, addressed, and discussed with the patient/caregiver at this encounter. - All changes in medications, including all [...] Allergy/ADR Data available for this patient [facility] [place] [facility] [place] [facility] [place] [facility] Med Recon NoGlossary (Tool #1) INCLUDED IN THIS LIST: Alphabetical list of active outpatient prescriptions dispensed from this VA (local) and dispensed from another [place] or DoD facility (remote) as well as [...] the patient into personal health records (i.e. [facility]) are NOT included in this list. Non-VA medications documented outside this VA, remote inpatient orders (regardless of status) and [...] ONE-HALF TABLET BY MOUTH ONCE DAILY Rx# [id number] Last Released: 10/06/23 Qty/Days Supply: Rx Expiration Date: 04/26/24 Refills Remainin Indication: FOR HIGH CHOLESTEROL OUTPT CALCIUM 200MG (CA CITRATE-950MG) TAB (Status = Active) TAKE FOUR TABLETS BY MOUTH TWICE DAILY Rx# [id number] Last Released: 10/04/23 Qty/Days Supply: Rx Expiration Date: 04/26/24 Refills Remainin Indication: FOR OSTEOPOROSIS OUTPT CALCIUM 200MG (CA CITRATE-950MG) TAB (Status = Pending) TAKE FOUR TABLETS BY MOUTH TWICE DAILY Renewed from Rx# [id number] Qty/Days Supply: Login Date: 11/27/23 Refills Ordered: 3 Non-VA CHOLECALCIF 50MCG (D3-2,000UNIT) TAB TAKE ONE TABLET BY MOUTH ONCE DAILY Aug 11, 2020 Non-VA medication not recommended by VA provider. OUTPT CITALOPRAM HYDROBROMIDE 20MG TAB (Status = Discontinued) TAKE ONE-HALF TABLET BY MOUTH ONCE DAILY FOR MOOD Rx# [id number] Last Released: 07/21/23 Qty/Days Supply: Rx Expiration Date: 09/29/23 Refills Remainin Indication: FOR MAJOR DEPRESSIVE DISORDER OUTPT CITALOPRAM HYDROBROMIDE 20MG TAB (Status = Active/Suspended) TAKE ONE-HALF TABLET BY MOUTH ONCE DAILY FOR MOOD Rx# [id number] Last Released: 10/11/23 Qty/Days Supply: Rx Expiration Date: 10/10/24 Refills Remainin Indication: FOR MAJOR DEPRESSIVE DISORDER Non-VA CYCLOBENZAPRINE HCL 10MG TAB TAKE ONE TABLET BY MOUTH TWICE DAILY OUTPT DENOSUMAB 60MG/ML INJ SYRINGE 1ML (Status = ) INJECT 60MG/1ML SUBCUTANEOUSLY ONE TIME FOR OSTEOPOROSIS Rx# [id number] Last Released: 10/18/23 Qty/Days Supply: 07/18 Rx Expiration Date: 11/17/23 Refills Remainin Indication: FOR OSTEOPOROSIS Non-VA DOCUSATE NA 100MG CAP TAKE 1 CAPSULE BY MOUTH TWICE DAILY Non-VA FUROSEMIDE 20MG TAB TAKE ONE TABLET BY MOUTH ONCE DAILY OUTPT GABAPENTIN 600MG TAB (Status = ) TAKE ONE TABLET BY MOUTH THREE TIMES A DAY Rx# [id number] Last Released: 07/21/23 Qty/Days Supply: Rx Expiration Date: 10/09/23 Refills Remainin OUTPT HYDROXYCHLOROQUINE SULFATE 200MG TAB (Status = Discontinued) TAKE ONE TABLET BY MOUTH ONCE DAILY Rx# [id number] Last Released: 04/20/23 Qty/Days Supply: Rx Expiration Date: 02/11/24 Refills Remainin OUTPT HYDROXYCHLOROQUINE SULFATE 200MG TAB (Status = Discontinued) TAKE ONE TABLET BY MOUTH ONCE DAILY Rx# [id number] Last Released: 10/11/23 Qty/Days Supply: Rx Expiration Date: 10/10/24 Refills Remainin OUTPT INSULIN,ASPART,HUMAN 100 UNIT/ML INJ (Status = Active/Suspended) INJECT 80 UNITS SUBCUTANEOUSLY EVERY DAY DIRECTED FOR USE WITH CONTINUOUS SUBCUTANEOUS INSULIN INFUSION DEVICE Rx# [id number] Last Released: 11/14/23 Qty/Days Supply: Rx Expiration Date: 04/17/24 Refills Remainin OUTPT KETOCONAZOLE 2% CREAM (Status = Active) APPLY A THIN LAYER TOPICALLY TWICE DAILY RASH APPLY TO AFFECTED AREAS ON FACE TWICE DAILY FOR 4 WEEKS, THEN NEEDED Rx# [id number] Last Released: 07/21/23 Qty/Days Supply: 120/30 Rx Expiration Date: 07/13/24 Refills Remainin Indication: RASH OUTPT KETOCONAZOLE 2% SHAMPOO (Status = Active) SHAMPOO SMALL AMOUNT TOPICALLY TWICE A WEEK NEEDED APPLY FOR 8 WEEKS, THEN NEEDED Rx# [id number] Last Released: 07/21/23 Qty/Days Supply: 240/30 Rx Expiration Date: 07/13/24 Refills Remainin Indication: SCALP RASH Non-VA LOSARTAN 100MG TAB TAKE ONE TABLET BY MOUTH DAILY OUTPT MULTIVIT/OPHTH AREDS2/LUTE/ZEAX CAP/TAB (Status = Active) TAKE 1 CAPSULE BY MOUTH TWICE DAILY IN THE MORNING AND EVENING, WITH FOOD Rx# [id number] Last Released: 10/10/23 Qty/Days Supply: 120/60 Rx Expiration Date: 03/29/24 Refills Remainin Non-VA OMEPRAZOLE 20MG EC CAP TAKE 1 CAPSULE BY MOUTH EVERY DAY Non-VA PILOCARPINE HCL 5MG TAB TAKE ONE TABLET BY MOUTH TWICE DAILY Dec 04, 2020 Non-VA medication not recommended by VA provider. OUTPT PREDNISONE 10MG TAB (Status = Active) TAKE ONE TABLET BY MOUTH ONCE DAILY Rx# [id number] Last Released: 02/08/23 Qty/Days Supply: 6060 Rx Expiration Date: 12/08/23 Refills Remainin OUTPT PREDNISONE 1MG TAB (Status = Discontinued) TAKE ONE TABLET BY MOUTH ONCE DAILY Rx# [id number] Last Released: 10/04/23 Qty/Days Supply: 60/60 Rx Expiration Date: 06/21/24 Refills Remainin OUTPT PREDNISONE 1MG TAB (Status = Active) TAKE FOUR TABLETS BY MOUTH ONCE DAILY Rx# [id number] Last Released: 10/17/23 Qty/Days Supply: 12030 Rx Expiration Date: 10/16/24 Refills Remainin OUTPT TAMSULOSIN HCL 0.4MG CAP (Status = Discontinued) TAKE ONE CAPSULE BY MOUTH AT BEDTIME FOR ENLARGED PROSTATE Rx# [id number] Last Released: 09/13/23 Qty/Days Supply: Rx Expiration Date: 04/12/24 Refills Remainin Indication: FOR ENLARGED PROSTATE OUTPT TAMSULOSIN HCL 0.4MG CAP (Status = Active) TAKE ONE CAPSULE BY MOUTH AT BEDTIME FOR ENLARGED PROSTATE Rx# [id number] Last Released: 10/11/23 Qty/Days Supply: Rx Expiration Date: 10/10/24 Refills Remainin Indication: FOR ENLARGED PROSTATE OUTPT TESTOSTERONE CYP 200MG/ML 1ML IN OIL (Status = Discontinued) INJECT 0.3ML (60MG) INTRAMUSCULARLY EVERY 7 DAYS FOR LOW TESTOSTERONE Rx# [id number] Last Released: 10/09/23 Qty/Days Supply: 10/14 Rx Expiration Date: 01/26/24 Refills Remainin Indication: FOR LOW TESTOSTERONE OUTPT TOCILIZUMAB 162MG/0.9ML INJ SYR 0.9ML (Status = Discontinued) INJECT 162MG SUBCUTANEOUSLY EVERY 2 WEEKS Rx# [id number] Last Released: 10/23/23 Qty/Days Supply: 08/16 Rx Expiration Date: 08/28/24 Refills Remainin OUTPT TOCILIZUMAB 162MG/0.9ML INJ SYR 0.9ML (Status = Active) INJECT 162MG SUBCUTANEOUSLY EVERY 2 WEEKS Rx# [id number] Last Released: 11/20/23 Qty/Days Supply: 08/16 Rx Expiration Date: 11/17/24 Refills Remainin SUPPLIES OUTPT NEEDLE 18G 1IN (Status = Active) USE 1 NEEDLE EVERY 7 DAYS FOR INJECTION Rx# [id number] Last Released: 07/21/23 Qty/Days Supply: Rx Expiration Date: 04/27/24 Refills Remainin OUTPT NEEDLE 23G 1IN (Status = Active) USE 1 NEEDLE EVERY 7 DAYS FOR INJECTION Rx# [id number] Last Released: 07/20/23 Qty/Days Supply: Rx Expiration Date: 04/27/24 Refills Remainin OUTPT SYRINGE 1ML LUER LOCK TIP (Status = Active) USE 1 SYRINGE EVERY 7 DAYS Rx# [id number] Last Released: 07/13/23 Qty/Days Supply: Rx Expiration Date: 04/27/24 Refills RemaininYony ramirez/ ALLIE CUELLO MD STAFF PHYSICIAN Signed: 11/27/2023 19:42 [facility]
--- OUTSIDE RECORDS SUMMARY | 2024-06-14 13:20 | XMS_ITS | Encounter Summary ---
Author Name [facility] [place] Organization [facility] [place] [place] Address [address] [place] [id number] Care Team Providers Care Academic Interventionist Name Role Phone TOÑO CAI Primary Care [...] Relationship to Policy Wen [place] MED[place] SUPPLEMEN MASTER PSUED O MEDEX BRON E Mar 19, 2004 [id number] HOLLIE SHEPHERD PATIENT [place] SUPPLEMEN MASTER MEDEX BRONZ E Mar 19, 2004 [id number] HOLLIE SHEPHERD PATIENT [place] SUPPLEMEN MASTER MEDEX [place]ON[place] E Mar 19, 2004 [id number] [phone] HOLLIE SHEPHERD PATIENT BCBS [facility] MEDICARE SUPPLEMEN MASTER PSUED O MEDEX BRONZ E Mar 19, 2004 [id number] [phone] HOLLIE SHEPHERD PATIENT MEDICARE (WNR) MEDICARE (M) PART B Mar 19, 2004 PART B [id number] [phone] HOLLIE SHEPHERD PATIENT MEDICARE (WNR) MEDICARE (M) PART B Mar 19, 2004 PART B [id number] [phone] HOLLIE SHEPHERD PATIENT MEDICARE (WNR) MEDICARE (M) PART B Mar 19, 2004 PART B [id number] HOLLIE SHEPHERD ALD PATIENT MEDICARE (WNR) MEDICARE (M) PART A Feb 17, 2003 PART A [id number] [phone] HOLLIE SHEPHERD ALD PATIENT MEDICARE (WNR) MEDICARE (M) PART A Feb 17, 2003 PART A [id number] [phone] HOLLIE SHEPHERD PATIENT MEDICARE (WNR) MEDICARE (M) PART A Feb 17, 2003 PART A [id number] [phone] HOLLIE SHEPHERD PATIENT MEDICARE (WNR) MEDICARE (M) PART A Feb 17, 2003 PART A [id number] HOLLIE SHEPHERD PATIENT MEDICARE (WNR) MEDICARE (M) PART B Feb 17, 2003 PART B [id number] HOLLIE SHEPHERD PATIENT MEDICARE (WNR) MEDICARE (M) PART A Feb 17, 2003 PART A [id number] HOLLIE SHEPHERD PATIENT MEDICARE (WNR) MEDICARE (M) PART B Feb 17, 2003 PART B [id number] [phone] HOLLIE SHEPHERD PATIENT Selected Encounter This section includes the information on record at [place] for the Encounter. Date/Time Encounter Type Encounter Description Reason Pro vider Source Feb 27, 2024 06:53 AM Outpatient Encounter ADMIN PAT ACTIVTIES (MASNONCT) IHE Encounter Template Text not used by [place] Plan of Treatment: Future Appointments (+ 6 months) and Future Tests (+/- 45 days) The Plan of Treatment section includes future care activities for the patient from all [place] treatmentfacilities. This section includes future appointments and future orders which are active, pending or scheduled. Future Appointments This section includes appointments that were scheduled to occur 6 months from the date of the Encounter, up to a maximum of 20 appointments. The data comes from all [place] treatment facilities. Appointment Date/Time Appointment Type Appointme nt Facility Name Feb 28, 2024 01:00 PM [facility] [facility] Feb 28, 2024 01:00 PM [facility] Mar 25, 2024 10:00 AM [facility] [place] [facility] Mar 25, 2024 10:30 AM [facility] [place] [facility] Apr 02, 2024 02:00 PM [facility] [place] [facility] Apr 04, 2024 02:00 PM [facility] [place] [facility] Apr 08, 2024 01:00 PM AMBULATORY - [facility] Apr 12, 2024 09:45 AM [facility] [place] [facility] Apr 16, 2024 10:00 AM AMBULATORY [facility] [place] May 02, 2024 10:00 AM AMBULATORY [facility] May 08, 2024 10:00 AM AMBULATORY [facility] [place] May 29, 2024 11:30 AM [facility] [place] [facility] Jun 05, 2024 12:00 PM [facility] [place] [facility] [place] [facility] Jun 05, 2024 12:00 PM [facility] [place] Jun 17, 2024 10:30 AM [facility] [place] [facility] Aug 06, 2024 10:00 AM [facility] [place] [facility] Social History: Smoking Status (Most current) and Tobacco Use (All prior to encounter date) This section includes the most current, and the historical, smoking and tobacco- related health factors from the [facility] facility where the Encounter took place. Current Smoking Status This section includes the most current smoking, or tobacco-related health factor, from the [facility] facility where the Encounter took place. Date/Time Current Smoking Status Maikel armstrong Jun 05, 2023 11:00 AM VA-TOBACCO FORMER USER [facility] Tobacco Use History This section includes a history of the smoking, or tobacco-related health factors, that were collected on or before the date of the Encounter. The data comes from the [place] facility where the Encounter took place. Date/Time Smoking Status/Tobac co Use Comment Facility Jun 05, 2023 11:00 AM VA-TOBACCO QUIT 15 YRS OR MORE [place] [facility] [place] [facility] Jun 06, 2022 01:00 PM VA-TOBACCO FORMER USER [facility] [place] [facility] Jun 06, 2022 01:00 PM VA-TOBACCO QUIT 15 YRS OR MORE [facility] [place] [facility] Jun 30, 2021 02:37 PM VA-TOBACCO FORMER USER [facility] [place] [facility] Jun 30, 2021 02:37 PM VA-TOBACCO QUIT 5 TO < 15 YRS [facility] [place] [facility] May 22, 2020 03:30 PM VA-TOBACCO NEVER USED [place] [facility] [place] [facility] May 08, 2018 02:03 PM VA-TOBACCO FORMER USER [facility] [place] [facility] May 08, 2018 02:03 PM VA-TOBACCO QUIT 15 YRS OR MORE [facility] [place] [facility] November 10, 2017 02:33 PM QUIT TOBACCO USE > 7 YEARS AGO [facility] [place] October 21, 2016 01:55 PM QUIT TOBACCO USE > 7 YEARS AGO [facility] [place] Sep 18, 2015 11:24 AM QUIT TOBACCO USE > 7 YEARS AGO stopped 50 years ago [facility] [place] May 19, 2005 08:01 AM HISTORY OF SMOKING [facility] [place] May 31, 2004 01:02 PM HISTORY OF SMOKING [facility] [place] [facility] Jun 04, 2003 07:57 AM HISTORY OF SMOKING [facility] [place] [facility] Jun 03, 2002 01:11 PM HISTORY OF SMOKING [facility] [place] [facility] Jun 03, 2002 01:11 PM QUIT TOBACCO USE > 7 YEARS AGO [place] [facility] [place] [facility] Advance Directives: All historical and current Section Date Range: From patient's date of to the date document was created. This section includes ALL of a patient's completed or amended [place] Advance and Rescinded Directives. The entries below indicate that a directive exists for the patient, but an actual copy is not included with this document. The data comes from all [place] facilities. Date Advance Directives Provider Source Jun 02, 2023 ADVANCE DIRECTIVE JENNIFER QUIROS [facility] Radiology Reports: +/- 30 days of the [...] the Encounter. The data comes from all [place] treatment facilities. Date/Time Radiology Report Provider Source Feb 12, 2024 10:52 AM SPINE LUMBOSACRAL MIN 2 VIEWS: BEBO SHEPHERD Nisa [id number] -[id number] M Ex Date: FEB 12, 2024@10:52 Req Phys: TOÑO CAI Loc: CWM/NO/PACT 3 (Req'g Loc) Img Loc: [facility] 1 Service: [place] [address] (Case [id number] COMPLETE) SPINE LUMBOSACRAL MIN 2 VIEWS (RAD Detailed) CPT:42820 Reason for Study: acute pain. Clinical History: Please burn him a disc. Report Status: Verified Date Reported: FEB 13, 2024 Date Verified: FEB 13, 2024 Rod Finisher E-Sig: Report: SPINE LUMBOSACRAL MIN 2 VIEWS HISTORY: acute pain. COMPARISON: None. TECHNIQUE: 3 view(s) of the lumbar spine, submitted to the [place] National Teleradiology Program (NTP) for interpretation. Impression: Normal lumbar lordosis is maintained. Vertebral bodies maintain normal heights. There is extensive anterior and posterior fusion with posterior transpedicular screws and rods and L2-L3 through L5-S1 interbody spacers. 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 No hardware failure. READING PHYSICIAN: Lorena Alcaraz M.D. -[id number] 02/12/2024 23:26 [facility] National Teleradiology Program [phone] (For Medical Practitioner Use Only) Attention Patients / Veterans: If you have questions or concerns about these test results, please contact your ordering provider or primary care team. Primary Diagnostic Code: NO ALERT REQUIRED Primary Interpreting Staff: RADIOLOGY,OUTSIDE SERVICE, Staff Physician / RADIOLOGY,OUTSIDE SERVICE [facility] Encounter Notes: All associated encounter notes This section contains the clinical notes associated to the Encounter. Date/Time Encounter Note(s) Provider Source Feb 27, 2024 06:53 AM PHARMACY NOTE: LOCAL TITLE: PHARMACY CUSTOMER CARE MEDICATION RENEWAL STANDARD TITLE: PHARMACY NOTE DATE OF NOTE: FEB 27, 2024@06:53 ENTRY DATE: FEB 27, 2024@06:53:27 AUTHOR: VALENCIA BAUMANN COSIGNER: URGENCY: STATUS: COMPLETED Date: Feb Division: [facility] referred by Pharmacy Call Center for medication renewal: Non-controlled/maintenan ce medication Medications requested: [id number]$ ATORVASTATIN CALCIUM 80MG TAB Defer to specialty clinic To be mailed . Please review and renew if appropriate. *This note was generated by [facility] [facility] Customer Care. If you have any questions or need assistance, do not contact this author. Please refer all questions to your local, on-site pharmacy departments. /thomas/ VALENCIA BAUMANN [facility] [employer] Account Executive, [place]/Pharmacy Customer Care Signed: 02/27/2024 06:53 Receipt Acknowledged By: 02/27/2024 11:57 /thomas/ ALLIE CUELLO MD STAFF PHYSICIAN VALENCIA BAUMANN [facility]
--- OUTSIDE RECORDS SUMMARY | 2024-06-14 13:20 | XMS_ITS | Encounter Summary ---
Author Name [facility] [place] [facility] [place] [facility] [place] Address [address] [place] [id number] Care Team Providers Care Safety And Health Manager Name Role Phone TOÑO CAI Primary Care [...] Relationship to Policy Wen [place] MED[place] SUPPLEMEN MASTER PSUED O MEDEX BRON E Mar 19, 2004 [id number] HOLLEI SHEPHERD PATIENT [place] MED[place] SUPPLEMEN MASTER MEDEX BRONZ E Mar 19, 2004 [id number] HOLLIE SHEPHERD PATIENT [place] SUPPLEMEN MASTER MEDEX BRONZ E Mar 19, 2004 [id number] HOLLIE SHEPHERD PATIENT BCBS [facility] MEDICARE SUPPLEMEN MASTER PSUED O MEDEX BRONZ E Mar 19, 2004 [id number] [phone] HOLLIE SHEPHERD PATIENT MEDICARE (WNR) MEDICARE (M) PART B Mar 19, 2004 PART B [id number] [phone] CORA,HOLLIE ALD PATIENT MEDICARE (WNR) MEDICARE (M) PART B Mar 19, 2004 PART B [id number] CORAHOLLIE SILVA ALD PATIENT MEDICARE (WNR) MEDICARE (M) PART B Mar 19, 2004 PART B [id number] CORAHOLLIE SILVA ALD PATIENT MEDICARE (WNR) MEDICARE (M) PART A Feb 17, 2003 PART A [id number] CORAHOLLIE ALD PATIENT MEDICARE (WNR) MEDICARE (M) PART A Feb 17, 2003 PART A [id number] [phone] CORAHOLLIE SILVA ALD PATIENT MEDICARE (WNR) MEDICARE (M) PART A Feb 17, 2003 PART A [id number] CORAHOLLIE SILVA ALD PATIENT MEDICARE (WNR) MEDICARE (M) PART A Feb 17, 2003 PART A [id number] [phone] CORAHOLLIE SILVA ALD PATIENT MEDICARE (WNR) MEDICARE (M) PART B Feb 17, 2003 PART B [id number] [phone] CORAHOLLIE SILVA ALD PATIENT MEDICARE (WNR) MEDICARE (M) PART A Feb 17, 2003 PART A [id number] [phone] HOLLIE SHEPHERD PATIENT MEDICARE (WNR) MEDICARE (M) PART B Feb 17, 2003 PART B [id number] [phone] HOLLIE SHEPHERD PATIENT Selected Encounter This section includes the information on record at [place] for the Encounter. Date/Time Encounter Type Encounter Description Reason Provider Source Mar 25, 2024 10:30 AM COMPRE OPH EXAM EST PT 1/> OPTOMETRY ICD-10-CM 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, right eye, intermed dry stage BARBARA VALLADARES Mikey Encounter Template Text not used by [place] Assessments - Encounter Diagnoses This section includes the primary and secondary diagnoses documented for the Encounter. Date/Time Primary/Secondary Diagnosis Diagnosis Name Provider Source Apr 11, 2024 06:01 AM PRIMARY Nexdtve age-related mclr degn, right eye, intermed dry stage BARBARA VALLADARES [place] [facility] [place] [facility] Apr 11, 2024 06:01 AM SECONDARY Nexdtve age-related mclr degn, left eye, intermed dry stage BARBARA VALLADARES [facility] [place] [facility] Apr 11, 2024 06:01 AM SECONDARY Presence of intraocular lens BARBARA VALLADARES [place] [facility] [place] [facility] Apr 11, 2024 06:01 AM SECONDARY Unspecified disorder of refraction BARBARA VALLADARES [place] [facility] [place] [facility] Plan of Treatment: Future Appointments (+ 6 months) and Future Tests (+/- 45 days) The Plan of Treatment section includes future care activities for the [facility] [place] [facility] This section includes future appointments and future orders which are active, pending or scheduled. Future Appointments This section includes appointments that were scheduled to occur 6 months from the date of the Encounter, up to a maximum of 20 appointments. The data comes from all [place] treatment facilities. Appointment Date/Time Appointment Type Appointme nt Facility Name Apr 02, 2024 02:00 PM AMBULATORY - MEDICINE [facility] [place] [facility] Apr 04, 2024 02:00 PM [facility] MEDICINE [facility] [place] [facility] Apr 08, 2024 01:00 PM AMBULATORY - REHAB MEDICIN E [facility] [place] [facility] Apr 12, 2024 09:45 AM AMBULATORY - MEDICINE [facility] [place] [facility] Apr 16, 2024 10:00 AM AMBULATORY - REHAB MEDICIN E [facility] [place] [facility] May 02, 2024 10:00 AM AMBULATORY - REHAB MEDICIN E [facility] [place] [facility] May 08, 2024 10:00 AM AMBULATORY - REHAB MEDICIN E [facility] [place] [facility] May 29, 2024 11:30 AM [facility]ULATORY [facility] MEDICINE [facility] [place] [facility] Jun 05, 2024 12:00 PM AM[place]ORY [place] [facility] Jun 05, 2024 12:00 PM AMBULATORY - PSYCHIATRY [facility] [place] [facility] Jun 17, 2024 10:30 AM [facility]IC[facility] [place] [facility] Aug 06, 2024 10:00 AM [place] [facility] [place] [facility] Social History: Smoking Status (Most [...] took place. Date/Time Current Smoking Status Comment [facility] Jun 05, 2023 11:00 AM VA-TOBACCO FORMER USER [place] [facility] [place] [facility] Tobacco Use History This section includes a history of the smoking, or tobacco-related health factors, that were collected on or before the date of the Encounter. The data comes from the [place] facility where the Encounter took place. Date/Time Smoking Status/Tobac co Use Comment [facility] Jun 05, 2023 11:00 AM VA-TOBACCO QUIT 15 YRS OR MORE [place] [facility] [place] [facility] Jun 06, 2022 01:00 PM VA-TOBACCO FORMER USER [place] [facility] [place] [facility] Jun 06, 2022 01:00 PM VA-TOBACCO QUIT 15 YRS OR MORE [facility] [place] [facility] Jun 30, 2021 02:37 PM VA-TOBACCO FORMER USER [place] [facility] [place] [facility] Jun 30, 2021 02:37 PM VA-TOBACCO QUIT 5 TO < 15 YRS [place] [facility] [place] [facility] May 22, 2020 03:30 PM VA-TOBACCO NEVER USED [place] [facility] [place] [facility] May 08, 2018 02:03 PM VA-TOBACCO FORMER USER [facility] [place] [facility] May 08, 2018 02:03 PM VA-TOBACCO QUIT 15 YRS OR MORE [facility] [place] [facility] November 10, 2017 02:33 PM QUIT TOBACCO USE > 7 YEARS AGO [facility] [place] [facility] October 21, 2016 01:55 PM QUIT TOBACCO USE > 7 YEARS AGO [facility] [place] [facility] Sep 18, 2015 11:24 AM QUIT TOBACCO USE > 7 YEARS AGO stopped 50 years ago [facility] [place] [facility] May 19, 2005 08:01 AM [facility] May 31, 2004 01[facility]02 PM [facility]MO[facility] Jun 04, 2003 07:57 AM [facility]MO[facility] Jun 03, 2002 01:11 PM HISTORY OF SMOKING [facility] Jun 03, 2002 01:11 PM QUIT TOBACCO USE > 7 YEARS AGO [facility] Advance Directives: All historical and current Section [...] Jun 02, 2023 ADVANCE DIRECTIVE JENNIFER QUIROS [facility] Radiology Reports: +/- 30 days of [...] comes from all [place] treatment facilities. Date/Time Radiology Report Provider Source Apr 02, 2024 02:24 PM SHOULDER,COMPLETE(RIGHT): BEBO SHEPHERD [id number] -[phone] Ex Date: APR 02, 2024@14:24 Req Phys: TOÑO CAI Loc: CWM/NO/PACT 3 (Req'g Loc) Img Loc: [facility] Service: Unknown [facility], [place] [address] (Case 50 COMPLETE) SHOULDER,COMPLETE(RIGHT) (RAD Detailed) CPT:72562 Reason for Study: lateral pain after a fall last week. Clinical History: Report Status: Verified Date Reported: APR 02, 2024 Date Verified: APR 02, 2024 Marzipan Maker E-Sig:/ES/NAPOLEON ELLIOTT JR Report: Study: AP internally and externally rotated [...] Primary Diagnostic Code: No immediate attention required Primary Interpreting Staff: NAPOLEON ELLIOTT JR, Radiologist (Marzipan Maker) /NAPOLEON SCHMITZ JR [facility] Encounter Notes: All associated encounter notes This section contains the clinical notes associated to the Encounter. Date/Time Encounter Note(s) Provider Source Mar 25, 2024 08:14 AM OPTOMETRY NOTE: LOCAL TITLE: OPTOMETRY NOTE(T) STANDARD TITLE: OPTOMETRY NOTE DATE OF NOTE: MAR 25, 2024@08:14 ENTRY DATE: MAR 25, 2024@08:14:43 AUTHOR: BARBARA VALLADARES EXP COSIGNER: URGENCY: STATUS: COMPLETED Active Problems: Active Problem Elevated PSA R97.20 10/11/2023 ALLIE CUELLO Aortic Valve Disorder (SCT [id number]) 10/09/2023 TOÑO CAI Cerebrovascular disease I67.9 04/26/2023 ALLIE CUELLO Chronic recurrent major depressive 02/01/2023 GUSTAVOSHANTI [place] 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 09/19/2011 TOÑO CAI Microscopic Hematuria 599.72 08/04/2010 VESTA DE LA CRUZ MD Rosacea 695.3 07/30/2010 VESTA DE LA CRUZ MD Hypertension (SNOMED CT 84450240) I 04/26/2023 ALLIE CUELLO Spinal Stenosis * (ICD-9-CM 724.00) 02/05/2010 VESTA DE LA CRUZ MD Hyperlipidemia (SNOMED CT 93365703) 04/26/2023 ALLIE CUELLO Osteoarthritis * (ICD-9-CM 715.90) 07/02/2008 PAUL ACOSTA Lower Back Pain * (ICD-9-CM 724.2) 07/02/2008 PAUL ACOSTA Vertigo 780.4 11/28/2007 PAUL ACOSTA Diabetes mellitus type 2 (SNOMED CT 09/17/2022 ALLIE CUELLO Gastroesophageal Reflux Disorder 53 11/28/2007 PAUL ACOSTA Medications ([facility]): Active Outpatient Medications (including Supplies): Active Outpatient Medications Status 1) ATORVASTATIN CALCIUM 80MG TAB TAKE ONE-HALF TABLET BY ACTIVE (S) MOUTH ONCE DAILY 2) CALCIUM 200MG (CA CITRATE-950MG) TAB TAKE FOUR ACTIVE TABLETS BY MOUTH TWICE DAILY 3) CITALOPRAM HYDROBROMIDE 10MG TAB TAKE ONE-HALF TABLET ACTIVE BY MOUTH ONCE DAILY FOR DEPRESSION AND ANXIETY 4) INSULIN,ASPART,HUMAN 100 UNIT/ML INJ INJECT 80 UNITS ACTIVE SUBCUTANEOUSLY EVERY DAY DIRECTED FOR USE WITH CONTINUOUS SUBCUTANEOUS INSULIN INFUSION DEVICE 5) KETOCONAZOLE 2% CREAM APPLY A THIN LAYER TOPICALLY ACTIVE TWICE DAILY RASH APPLY TO AFFECTED AREAS ON FACE TWICE DAILY FOR 4 WEEKS, THEN NEEDED 6) KETOCONAZOLE 2% SHAMPOO SHAMPOO SMALL AMOUNT ACTIVE TOPICALLY TWICE A WEEK NEEDED APPLY FOR 8 WEEKS, THEN NEEDED 7) MULTIVIT/OPHTH AREDS2/LUTE/ZEAX CAP/TAB TAKE 1 ACTIVE CAPSULE BY MOUTH TWICE DAILY IN THE MORNING AND EVENING, WITH FOOD 8) NEEDLE 18G 1IN USE 1 NEEDLE EVERY 7 DAYS FOR ACTIVE INJECTION 9) NEEDLE 23G 1IN USE 1 NEEDLE EVERY 7 DAYS FOR ACTIVE INJECTION 10) PREDNISONE 1MG TAB TAKE FOUR TABLETS BY MOUTH ONCE ACTIVE DAILY 11) SYRINGE 1ML LUER LOCK TIP USE 1 SYRINGE EVERY 7 DAYS ACTIVE 12) TAMSULOSIN HCL 0.4MG CAP TAKE TWO CAPSULES BY MOUTH ACTIVE AT BEDTIME 13) TOCILIZUMAB 162MG/0.9ML INJ SYR 0.9ML INJECT [...] TAB 5MG BY MOUTH TWICE ACTIVE DAILY 23 Total Medications Allergies: PENICILLIN, ZOSYN, METFORMIN S: 84-year-old male is in for annual follow-up with a history of early dry macular degeneration OU. OCT from earlier exhibits PED with mildly reduced acuity OS. He complains of blurred distance vision over the past few months with his current eyewear. Patient takes many medications including prescribed hydroxychloroquine and Enbrel. FREDRICK: 03/22/2023 (-) Pain: (-) BECERRA: (-) Diplopia: (-) Flashes: (-) Floaters: (-) Amaurosis Fugax/Tia's: (-) Eye Injury: (+) Eye Surgery: CE with PCL OU. (-) TBI O: Visual acuity with current correction was 20/30 - OD and 20/40 - OS. Pupils were equal and round and reactive to light with no afferent defect. Extraocular muscles were intact with no palsies being seen or diplopia reported and facial confrontation marte were full. Lids and lashes were clear both eyes with dermatochalasis and mild MGD. Corneas and conjunctiva were clear both eyes. Anterior chambers were deep clear and quiet with open angles. Iris was flat both eyes without neovascularization. Posterior chamber lenses were in place and clear OU. Refraction -0.50-0.50 X95 20/20 - -1.25-1.50 X85 20/30+ - +2.75 Intraocular pressures at 10:25 AM were 14 mmHg OU. Dilating Drops: 1GTT 1 % Tropicamide OU & 1GTT 2.5% Phenylephrine OU (Pt. ed. on side effects, dilation warning given and verbal consent obtained) Patient advised not to drive if they feel they have any symptoms which could affect their ability to drive safely. Patient advised not to engage in any activities which could put themselves or others at risk if they feel they have any symptoms which could affect their ability to perform those activities safely. Vitreous syneresis was seen OU. Approximately 50 horizontal and vertical cupping was seen OD and 35% horizontal and vertical cupping OS with healthy rims and margins and no notches or hemorrhages or neovascularization. Peripapillary atrophy was seen OD. Mild pigment mottling of the macula was seen OU with trace drusen OU. No edema, lipid or hemorrhage was seen OU. A two third artery to vein ratio was seen OU with no Hollenhorst plaques being seen today. Retinal peripheries were intact in all quadrants OU. No retinopathy was seen OU. A: New PED OS on macular OCT with mildly reduced acuity. History of early dry macular degeneration OU which may be progressing mildly. 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 Pseudophakia OU. P: Ordered consult to [facility] mainly for OS. Ordered new eyewear. The patient will return in 12 months or sooner if any problems arise. Education: After discussion and answering all 's questions, [place] demonstrated and verbalized understanding of diagnosis and treatment. Yes [x] No [ ] Macular Degeneration: Patient was educated regarding macular degeneration including both wet and dry varieties as well as the natural history and prognosis of this condition. Education included the role of amsler grid testing , ocular nutraceutical therapy as well as diet and healthy lifestyle choices when applicable. Exclusion criteria includes extremely reduced acuity or cognitive decline for amsler grid testing and other coexisting systemic contraindication for supplements, diet and exercise. Education: Diabetes: Patient was educated regarding diabetes and related ocular complications including retinopathy and cataract formation as well as other related systemic complications. The importance of good blood sugar control, blood sugar testing as recommended by their PCP and the importance of timely follow up were all emphasized. Medication Reconciliation: Outpatient: Has the patient been taking medications as documented in the EMLR? YES: The patient has been taking medications as documented in the EMLR. Essential Medication List for Review used to complete this medication reconciliation. INCLUDED IN THIS LIST: Alphabetical list of active outpatient prescriptions dispensed from this [facility] (local) and dispensed from another [place] or [facility] facility (remote) as well as [...] whether with a VA or non-VA provider. /thomas/ BARBARA VALLADARES OD STAFF ELECTRIC SPOT WELDER Signed: 03/25/2024 11:12 [facility]ALLADARES [facility]
--- OUTSIDE RECORDS SUMMARY | 2024-06-14 13:20 | XMS_ITS | Encounter Summary ---
Author Name [facility] Organization [facility] [place] Address [address] [place] [id number] Care Team Providers Care Solar Sales Representative And Assessor Name Role Phone TOÑO CAI Primary Care [...] Relationship to Policy Wen [place] MEDICARE SUPPLEMEN MASTER PSUED O MEDEX BRONZ E Mar 19, 2004 [id number] HOLLIE SHEPHERD [place]IENT [place] SUPPLEMEN MASTER MEDEX BRONZ E Mar 19, 2004 [id number] [phone] HOLLIE SHEPHERD [place] SUPPLEMEN MASTER MEDEX BRONZ E Mar 19, 2004 [id number] [phone] HOLLIE SHEPHERD PATIENT BCBS [facility] MEDICARE SUPPLEMEN MASTER PSUED O MEDEX BRONZ E Mar 19, 2004 [id number] [phone] HOLLIE SHEPHERD PATIENT MEDICARE (WNR) MEDICARE (M) PART B Mar 19, 2004 PART B [id number] [phone] CORA,HOLLIE ALD PATIENT MEDICARE (WNR) MEDICARE (M) PART B Mar 19, 2004 PART B [id number] [phone] HOLLIE SHEPHERD ALD PATIENT MEDICARE (WNR) MEDICARE (M) PART B Mar 19, 2004 PART B [id number] CORAHOLLIE SILVA ALD PATIENT MEDICARE (WNR) MEDICARE (M) PART A Feb 17, 2003 PART A [id number] HOLLIE SHEPHERD ALD PATIENT MEDICARE (WNR) MEDICARE (M) PART A Feb 17, 2003 PART A [id number] HOLLIE SHEPHERD ALD PATIENT MEDICARE (WNR) MEDICARE (M) PART A Feb 17, 2003 PART A [id number] [phone] HOLLIE SHEPHERD ALD PATIENT MEDICARE (WNR) MEDICARE (M) PART A Feb 17, 2003 PART A [id number] HOLLIE SHEPHERD PATIENT MEDICARE (WNR) MEDICARE (M) PART B Feb 17, 2003 PART B [id number] HOLLIE SHEPHERD PATIENT MEDICARE (WNR) MEDICARE (M) PART A Feb 17, 2003 PART A [id number] [phone] HOLLIE SHEPHERD PATIENT MEDICARE (WNR) MEDICARE (M) PART B Feb 17, 2003 PART B [id number] HOLLIE SHEPHERD PATIENT Selected Encounter This section includes the information on record at [place] for the Encounter. Date/Time Encounter Type Encounter Description Reason Pro vider Source Feb 12, 2024 11:14 AM Outpatient Encounter DERMATOLOGY IHE Encounter Template Text not used by [facility] Plan of Treatment: Future Appointments (+ 6 months) and Future Tests (+/- 45 days) The Plan of Treatment section includes future care activities for the patient from all [facility] treatmentfacilities. This section includes future appointments and future orders which are active, pending or scheduled. Future Appointments This section includes appointments that were scheduled to occur 6 months from the date of the Encounter, up to a maximum of 20 appointments. The data comes from all [place] treatment facilities. Appointment Date/Time Appointment Type Appointme nt Facility Name Feb 28, 2024 01:00 PM AMBULATORY [facility] Feb 28, 2024 01:00 PM [facility] [place] [facility] Mar 25, 2024 10:00 AM [facility] [place] [facility] Mar 25, 2024 10:30 AM [facility] [place] [facility] Apr 02, 2024 02:00 PM [facility]ORY [facility] [place] [facility] Apr 04, 2024 02:00 PM [facility] [place] [facility] Apr 08, 2024 01:00 PM AMBULATORY - REHAB MEDICIN [facility] [place] [facility] Apr 12, 2024 09:45 AM [facility]ULATORY [facility] [place] [facility] Apr 16, 2024 10:00 AM AMBULATORY - REHAB MEDICIN [facility] [place] [facility] May 02, 2024 10:00 AM AMBULATORY - REHAB MEDICIN [facility] [place] [facility] May 08, 2024 10:00 AM AMBULATORY - REHAB MEDICIN [facility] [place] [facility] May 29, 2024 11:30 AM [facility]ATORY [facility] [place] [facility] Jun 05, 2024 12:00 PM AM[facility]UL[facility] Jun 05, 2024 12:00 PM AMBULATORY [facility] [place] [facility] Jun 17, 2024 10:30 AM [facility]ORY [facility] [place] [facility] Aug 06, 2024 10:00 AM AM[facility]ULATORY [facility] [place] [facility] Vital Signs: All taken on the encounter date This section contains inpatient and outpatient Vital Signs collected on the date of the Encounter. Date/Time Temperature Pulse Blood Pressure Respiratory Rate SP02 Pain Height Weight Body Mass Index Source Feb 12, 2024 10:00 AM 98.4 88 124/74 16 96 0 178 30 [facility] Social History: Smoking Status (Most current) and Tobacco Use (All prior to encounter date) This section includes the most current, and the historical, smoking and tobacco- related health factors from the [facility] facility where the Encounter took place. Current Smoking Status This section includes the most current smoking, or tobacco-related health factor, from the [facility] facility where the Encounter took place. Date/Time Current Smoking Status Comment [facility] Jun 05, 2023 11:00 AM VA-TOBACCO FORMER USER [facility] [place] [facility] Tobacco Use History This section includes a history of the smoking, or tobacco-related health factors, that were collected on or before the date of the Encounter. The data comes from the [facility] facility where the Encounter took place. Date/Time Smoking Status/Tobac co Use Comment [facility] Jun 05, 2023 11:00 AM VA-TOBACCO QUIT 15 YRS OR MORE [facility] [place] [facility] Jun 06, 2022 01:00 PM VA-TOBACCO FORMER USER [facility] [place] [facility] Jun 06, 2022 01:00 PM VA-TOBACCO QUIT 15 YRS OR MORE [facility] [place] [facility] Jun 30, 2021 02:37 PM VA-TOBACCO FORMER USER [facility] [place] [facility] Jun 30, 2021 02:37 PM VA-TOBACCO QUIT 5 TO < 15 YRS [facility] [place] [facility] May 22, 2020 03:30 PM VA-TOBACCO NEVER USED [facility] [place] [facility] May 08, 2018 02:03 PM VA-TOBACCO FORMER USER [facility] [place] [facility] May 08, 2018 02:03 PM VA-TOBACCO QUIT 15 YRS OR MORE [facility] [place] [facility] November 10, 2017 02:33 PM QUIT TOBACCO USE > 7 YEARS AGO [facility] [place] [facility] October 21, 2016 01:55 PM QUIT TOBACCO USE > 7 YEARS AGO [facility] [place] [facility] Sep 18, 2015 11:24 AM QUIT TOBACCO USE > 7 YEARS AGO stopped 50 years ago [facility] [place] [facility] May 19, 2005 08:01 AM HISTORY OF SMOKING [facility] [place] [facility] May 31, 2004 01:02 PM HISTORY OF SMOKING [facility] [place] [facility] Jun 04, 2003 07:57 AM HISTORY OF SMOKING [facility] [place] [facility] Jun 03, 2002 01:11 PM HISTORY OF SMOKING [facility] Jun 03, 2002 01:11 PM QUIT TOBACCO USE > 7 YEARS AGO [facility] Advance Directives: All historical and current Section Date Range: From patient's date of to the date document was created. This section includes ALL of a patient's completed or amended [place] Advance and Rescinded Directives. The entries below indicate that a directive exists for the patient, but an actual copy is not included with this document. The data comes from all [facility] facilities. Date Advance Directives Provider Source Jun 02, 2023 ADVANCE DIRECTIVE [facility] Radiology Reports: +/- 30 days of [...] the Encounter. The data comes from all [facility] treatment facilities. Date/Time Radiology Report Provider Source Feb 12, 2024 10:52 AM SPINE LUMBOSACRAL MIN 2 VIEWS: BEBO SHEPHERD [id number] -[id number] M Ex Date: FEB 12, 2024@10:52 Req Phys: TOÑO CAI Loc: CWM/NO/PACT 3 (Req'g Loc) g Loc: [facility] 1 Service: [place] [address] (Case [id number] COMPLETE) SPINE LUMBOSACRAL MIN 2 VIEWS (RAD Detailed) CPT:16244 Reason for Study: acute pain. Clinical History: Please burn him a disc. Report Status: Verified Date Reported: FEB 13, 2024 Date Verified: FEB 13, 2024 Paper Handler E-Sig: Report: SPINE LUMBOSACRAL MIN 2 VIEWS HISTORY: acute pain. COMPARISON: None. TECHNIQUE: 3 view(s) of the lumbar spine, submitted to the [place] National Teleradiology Program (NTP) for interpretation. Impression: Normal lumbar lordosis is maintained. Vertebral bodies maintain normal heights. There is extensive anterior and posterior fusion with posterior transpedicular screws and rods and L2-L3 through L5-S1 interbody spacers. 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 No hardware failure. READING PHYSICIAN: Lorena Alcaraz M.D. -[id number] 02/12/2024 23:26 [facility] National Teleradiology Program [phone] (For Medical Practitioner Use Only) Attention Patients / Veterans: If you have questions or concerns about these test results, please contact your ordering provider or primary care team. Primary Diagnostic Code: NO ALERT REQUIRED Primary Interpreting Staff: RADIOLOGY,OUTSIDE SERVICE, Staff Physician / RADIOLOGY,OUTSIDE SERVICE [facility] [place] [facility] Encounter Notes: All associated encounter notes This section contains the clinical notes associated to the Encounter. Date/Time Encounter Note(s) Provider Source Feb 12, 2024 11:14 AM TELEPHONE ENCOUNTE R NOTE: LOCAL TITLE: TELEPHONE NOTE/SPECIALTY CLINIC STANDARD TITLE: TELEPHONE ENCOUNTER NOTE DATE OF NOTE: FEB 12, 2024@11:14 ENTRY DATE: FEB 12, 2024@11:14:15 AUTHOR: KAN WALKER EXP COSIGNER: URGENCY: STATUS: COMPLETED TELEPHONE NOTE/SPECIALTY CLINIC Has ADDENDA vet stopped into [place] stating he has 2 scabs from his recent biopsy that he would like to get looked at. he is requesting a call back from DERM nursing to discuss if he should come in and would also like the report of this recent biopsy. forwarding to derm to follow up and advise. /benny WALKER [employer] Signed: 02/12/2024 11:16 Receipt Acknowledged By: 02/22/2024 14:05 /thomas/ VEGA PENA DNP, SKIP LOAD DRIVER-C NURSE PRACTITIONER 02/12/2024 16:05 /thomas/ TODD GALLOWAY LPN LPN 02/12/2024 ADDENDUM STATUS: COMPLETED notified of biopsy results on 10/23/23. Paper copy mailed to his home today per request. Next appt with Derm in [place] is 04/04/24 at 2p. Unable to reach today to ask what wound looks like look like and location. Most recent biospy was September 2023. /es/ TODD GALLOWAY LPN LPN Signed: 02/12/2024 16:00 KAN WALKER [facility]
--- OUTSIDE RECORDS SUMMARY | 2024-06-14 13:20 | XMS_ITS ---
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 Name Role Phone TOÑO CAI Primary Care [...] NE MEDICARE SUPPLEMEN MASTER PSUED O MEDEX [facility] E Mar 19, 2004 [id number] HOLLIE SHEPHERD PATIENT [place] MED[place] SUPPLEMEN MASTER MEDEX [place] E Mar 19, 2004 [id number] [phone] HOLLIE SHEPHERD [place] SUPPLEMEN MASTER MEDEX [place] E Mar 19, 2004 [id number] [phone] HOLLIE SHEPHERD PATIENT BCBS [facility] MEDICARE SUPPLEMEN MASTER PSUED O MEDEX [place] E Mar 19, 2004 [id number] HOLLIE SHEPHERD PATIENT MEDICARE (WNR) MEDICARE (M) PART B Mar 19, 2004 PART B [id number] HOLLIE SHEPHERD PATIENT MEDICARE (WNR) MEDICARE (M) PART B Mar 19, 2004 PART B [id number] CORAHOLLIE SILVA ALD PATIENT MEDICARE (WNR) MEDICARE (M) PART B Mar 19, 2004 PART B [id number] CORAHOLLIE SILVA ALD PATIENT MEDICARE (WNR) MEDICARE (M) PART A Feb 17, 2003 PART A [id number] [phone] CORAHOLLIE SILVA ALD PATIENT MEDICARE (WNR) MEDICARE (M) PART A Feb 17, 2003 PART A [id number] [phone] CORAHOLLIE SILVA ALD PATIENT MEDICARE (WNR) MEDICARE (M) PART A Feb 17, 2003 PART A [id number] [phone] HOLLIE SHEPHERD PATIENT MEDICARE (WNR) MEDICARE (M) PART A Feb 17, 2003 PART A [id number] CORAHOLLIE SILVA PATIENT MEDICARE (WNR) MEDICARE (M) PART B Feb 17, 2003 PART B [id number] [phone] HOLLIE SHEPHERD PATIENT MEDICARE (WNR) MEDICARE (M) PART A Feb 17, 2003 PART A [id number] HOLLIE SHEPHERD PATIENT MEDICARE (WNR) MEDICARE (M) PART B Feb 17, 2003 PART B [id number] HOLLIE SHEPHERD PATIENT Selected Encounter This section includes the information on record at [place] for the Encounter. Date/Time Encounter Type Encounter Description Reason Provider Source November 02, 2023 11:15 AM OFFICE O/P EST LOW 20 MIN PRIMARY CARE/MEDICINE ICD-10-CM R60.0 Localized edema FLORENTINO ERNST E Encounter Template Text not used by [place] Assessments - Encounter Diagnoses This section includes the primary and secondary diagnoses documented for the Encounter. Date/Time Primary/Secondary Diagnosis Diagnosis Name Provider Source Nov 28, 2023 04:41 PM PRIMARY Localized edema FLORENTINO ERNST [facility] Plan of Treatment: Future Appointments (+ 6 months) and Future Tests (+/- 45 days) The Plan of Treatment section includes future care activities for the patient from all [place] [facility] This section includes future appointments and future orders which are active, pending or scheduled. Future Appointments This section includes appointments that were scheduled to occur 6 months from the date of the Encounter, up to a maximum of 20 appointments. The data comes from all [facility] facilities. Appointment Date/Time Appointment Type Appointme nt Facility Name November 06, 2023 02:50 PM AMBULATORY - MEDICINE [facility] [place] [facility] Nov 22, 2023 10:00 AM AMBULATORY - MEDICINE [facility] [place] [facility] Nov 27, 2023 02:00 PM AMBULATORY - MEDICINE [facility] [place] [facility] Feb 12, 2024 10:00 AM AMBULATORY - MEDICINE [facility] [place] [facility] Feb 28, 2024 01:00 PM AMBULATORY - [place]AT[place] [facility] Feb 28, 2024 01:00 PM AMBULATORY - PSYCHIATRY [facility] [place] [facility] Mar 25, 2024 10:00 AM AMBULATORY - MEDICINE [facility] [place] [facility] Mar 25, 2024 10:30 AM AMBULATORY - MEDICINE [facility] [place] [facility] Apr 02, 2024 02:00 PM AMBULATORY - MEDICINE [facility] [place] [facility] Apr 04, 2024 02:00 PM AMBULATORY - MEDICINE [facility] [place] [facility] Apr 08, 2024 01:00 PM AMBULATORY - REHAB MEDICIN E [facility] [place] [facility] Apr 12, 2024 09:45 AM AMBULATORY - MEDICINE [place] [facility] [place] [facility] Apr 16, 2024 10:00 AM AMBULATORY - REHAB MEDICIN E [facility] [place] [facility] May 02, 2024 10:00 AM AMBULATORY - REHAB MEDICIN E [facility] [place] [facility] Active, Pending, and Scheduled Orders [...] PATH ORDER SURG PATH SPEC. UNKNOWN SP [facility] Lab Results: +/- 30 days of [...] Range Comment Oct 11, 2023 01:27 PM [facility] MICROALBUMIN CREATININE RATIO PANEL Specimen Type: URINE No comment entered. Ordering Provider: ALLIE CUELLO Report Released Date/Time: Jul 26, 2023 10:12 AM Reporting Lab: [facility] [address] [address] Performing Lab: [address] [address] MICROALBUMIN/C REATININE RATIO 7.1 mg/g 0-29.9 MICROALBUMIN,Q UANTITATIVE 0.8 mg/dL RR UNAVAIL CREATININE URINE 113.29 mg/dL Oct 10, 2023 03:42 PM [facility] LIVER FUNCTION Specimen Type: SERUM Comment: *BASIC METABOLIC PANEL (fasting) Not Performed: Oct 10, 2023@15:51 b *CAR PICK UP DRIVER Reason: dup *LIPID PANEL FASTING Not Performed: Oct 10, 2023@15:51 by [id number] *CAR PICK UP DRIVER Reason: dup Ordering Provider: JUAN LUIS CAI Report Released Date/Time: Jun 05, 2023 11:22 AM Reporting Lab: [facility] [address] [facility] [address] Performing Lab: [address] [address] PROTEIN,TOTAL 6.0 g/dL 6.0-8.3 ALBUMIN 4.2 g/dL 3.5-5.0 ALKALINE PHOSPHATASE 89 U/L 40-150 AST 29 U/L 5-34 ALT 29 U/L BILIRUBIN, TOTAL 1.3 mg/dL H 0.2-1.2 BILIRUBIN, DIRECT 0.5 mg/dL 0-0.5 Oct 10, 2023 03:41 PM [facility] TESTOSTERONE, TOTAL (WHV) Specimen Type: SERUM No comment entered. Ordering Provider: ALLIE CUELLO Report Released Date/Time: Jul 26, 2023 10:12 AM Reporting Lab: [address] [address] Performing Lab: [address] [address] TESTOSTERONE, TOTAL (V) 755.20 ng/dL 220.00-892 .00 Oct 10, 2023 03:41 PM [facility] PSA Specimen Type: SERUM No comment entered. Ordering Provider: ALLIE CUELLO Report Released Date/Time: Jul 26, 2023 10:12 AM Reporting Lab: [address] [address] Performing Lab: [address] [address] PSA 4.74 ng/mL H 0.00-4.00 Oct 10, 2023 03:41 PM [facility] HEMOGLOBIN A1C PANEL Specimen Type: BLOOD [...] 26, 2023 10:12 AM Reporting Lab: [address] [address] Performing Lab: [address] [address] HEMOGLOBIN A1C 6.7 H 4.0-5.6 Oct 10, 2023 03:41 PM [facility] LIPID PANEL FASTING Specimen Type: SERUM No comment entered. Ordering Provider: ALLIE CUELLO Report Released Date/Time: Jul 26, 2023 10:12 AM Reporting Lab: [address] [address] Performing Lab: [address] [address] CHOLESTEROL 96 mg/dL TRIGLYCERIDE 101 mg/dL 0-150 LDL calculated 44 mg/dL 0-129 CHOL/HDL 3.0 HDL CHOLESTEROL 32 mg/dL L 40-60 Oct 10, 2023 03:41 PM [facility] CBC Specimen Type: BLOOD No comment entered. Ordering Provider: ALLIE CUELLO Report Released Date/Time: Jul 26, 2023 10:12 AM Reporting Lab: [address] [address] Performing Lab: [address] [address] WBC 5.42 10*3/uL 4.50-11.00 RBC 4.87 10*6/uL 4.23-5.66 HGB 12.5 g/dL L 12.8-17 HCT 39.4 39.2-50.4 MCV 80.9 fL L 82-99 MCHC 31.7 g/dL 30.8-35.1 PLT 123 10*3/uL L 140-360 RDW-CV 14.7 12.0-16.0 MCH 25.7 pg L 26.2-32.6 Oct 10, 2023 03:41 PM [facility] CALCIUM Specimen Type: SERUM No comment entered. Ordering Provider: ALLIE CUELLO Report Released Date/Time: Oct 10, 2023 07:35 AM Reporting Lab: [address] [address] Performing Lab: [address] [address] CALCIUM 9.1 mg/dL 8.5-10.2 Oct 10, 2023 03:41 PM [facility] VITAMIN D (25-OH) Specimen Type: SERUM No comment entered. Ordering Provider: ALLIE CUELLO Report Released Date/Time: Oct 10, 2023 07:35 AM Reporting Lab: [address] [address] Performing Lab: [address] [address] VITAMIN D (25-OH) 41 ng/mL 20-50 Oct 10, 2023 03:41 PM [facility] BASIC METABOLIC PANEL (fasting) Specimen Type: SERUM No comment entered. Ordering Provider: ALLIE CUELLO Report Released Date/Time: Jul 26, 2023 10:12 AM Reporting Lab: [address] [address] Performing Lab: [address] [address] UREA NITROGEN 22 mg/dL 7-25 GLUCOSE 172 [...] 11:30 AM 98.1 89 134/72 16 95 [facility] Social History: Smoking Status (Most [...] Facil ity Jun 05, 2023 11:00 AM AR-TOBACCO FORMER USER [facility] Tobacco Use History This section includes a history of the smoking, or tobacco-related health factors, that were collected on or before the date of the Encounter. The data comes from the [place] facility where the Encounter took place. Date/Time Smoking Status/Tobac co Use Comment Facility Jun 05, 2023 11:00 AM VA-TOBACCO QUIT 15 YRS OR MORE [facility] [place] [facility] Jun 06, 2022 01:00 PM VA-TOBACCO FORMER USER [facility] [place] [facility] Jun 06, 2022 01:00 PM VA-TOBACCO QUIT 15 YRS OR MORE [facility] [place] [facility] Jun 30, 2021 02:37 PM VA-TOBACCO FORMER USER [facility] [place] [facility] Jun 30, 2021 02:37 PM VA-TOBACCO QUIT 5 TO < 15 YRS [facility] [place] [facility] May 22, 2020 03:30 PM VA-TOBACCO NEVER USED [facility] [place] [facility] May 08, 2018 02:03 PM VA-TOBACCO FORMER USER [facility] [place] [facility] May 08, 2018 02:03 PM VA-TOBACCO QUIT 15 YRS OR MORE [facility] [place] [facility] November 10, 2017 02:33 PM QUIT TOBACCO USE > 7 YEARS AGO [facility] [place] [facility] October 21, 2016 01:55 PM QUIT TOBACCO USE > 7 YEARS AGO [facility] [place] [facility] Sep 18, 2015 11:24 AM QUIT TOBACCO USE > 7 YEARS AGO stopped 50 years ago [facility] [place] [facility] May 19, 2005 08:01 AM HISTORY OF SMOKING [facility] [place] [facility] May 31, 2004 01:02 PM HISTORY OF SMOKING [facility] [place] [facility] Jun 04, 2003 07:57 AM HISTORY OF SMOKING [facility] [place] [facility] Jun 03, 2002 01:11 PM HISTORY OF SMOKING [facility] [place] [facility] Jun 03, 2002 01:11 PM QUIT TOBACCO USE > 7 YEARS AGO [facility] [place] [facility] Advance Directives: All historical and [...] Jun 02, 2023 ADVANCE DIRECTIVE JENNIFER QUIROS [facility] Pathology Reports: +/- 30 days of [...] STATUS: COMPLETED $APHDR Reporting Lab: [facility] [CLIA# [id number]] [address] [place] [phone] - - - - - - - [...] - PATHOLOGY REPORT Accession No. [facility] [id number] - - - - - - - - - - - - - - - - - - - - - - - - - - - - - - - - - - - - - - - - Gross description: [facility] 6175;A;1;Nisa SHEPHERD This is a [facility] case number [id number] [id number]. Received in formalin is [...] lateral and deep tissue margins. CPT codes 51641t0 /thomas/ LESTER ANDERSON MD Board Certified Dermatopathologist Signed Oct 12, 2023@10:54 Performing Laboratory: Surgical Pathology Report Performed By: [facility] [CLIA# [id number]] [address] [place] [phone] $FTR - - - - - - [...] - - BEBO SHEPHERD STANDARD FORM 515 ID:[id number] SEX:M :1940 AGE: 83 LOC:CWM/NO/CVT/DERMATOLOGY/N P PCP: RUBY Long /thomas/ LESTER ANDERSON MD Board Certified Dermatopathologist Signed: 10/12/2023 10:54 LESTER ANDERSON MD [facility] Encounter Notes: All associated encounter notes This section contains the clinical notes associated to the Encounter. Date/Time Encounter Note(s) Provider Source November 02, 2023 11:15 AM PHYSICIAN RUM PROCESSING OPERATOR NOTE: LOCAL TITLE: RUBY NOTE STANDARD TITLE: PHYSICIAN RUM PROCESSING OPERATOR NOTE DATE OF NOTE: NOVEMBER 02, 2023@11:15 ENTRY DATE: NOVEMBER 02, 2023@12:30:59 AUTHOR: FLORENTINO ERNST EXP COSIGNER: URGENCY: STATUS: COMPLETED SICK CALL VISIT HPI: 83-year-old male seen yesterday for wound on the right upper arm and olecranon bursitis drainage presents for evaluation of the hand and forearm swelling after he removed his Elías wrap. He kept the Elías wrap on all night because it felt good . He woke to have his hand and forearm swollen. It remains swollen even after he remove the Elías wrap. He does have some pain in his hand due to the swelling however he has full range of motion of the hand and wrist. He has no loss of sensation. He has good capillary refill but he wanted to have the area looked at. He has no complaints in regards to the wound on his upper arm. REVIEW OF SYSTEMS: A 12 point review of systems is negative except as noted in the HPI. Active Medical Problems: Active Problem Elevated PSA R97.20 10/11/2023 ALLIE CUELLO Aortic Valve Disorder (SCT 6604894) 10/09/2023 TOÑO CAI Cerebrovascular disease I67.9 04/26/2023 [...] DE LA CRUZ MD Hypertension (SNOMED CT 21561214) I 04/26/2023 ALLIE CUELLO Spinal Stenosis * (ICD-9-CM 724.00) 02/05/2010 VESTA DE LA CRUZ MD Hyperlipidemia (SNOMED CT 03606038) 04/26/2023 ALLIE CUELLO Osteoarthritis * (ICD-9-CM 715.90) 07/02/2008 PAUL ACOSTA Lower Back Pain * (ICD-9-CM 724.2) 07/02/2008 PAUL ACOSTA Vertigo 780.4 11/28/2007 PAUL ACOSTA Diabetes mellitus type 2 (SNOMED CT 09/17/2022 ALLIE CUELLO Gastroesophageal Reflux Disorder 53 11/28/2007 PAUL ACSOTA Meds: Active Outpatient Medications (including Supplies): ATORVASTATIN [...] PENICILLIN, ZOSYN, METFORMIN Date Vital Measurement Qualifiers 11/02/2023 11:30 Temp F (C) 98.1 (36.7) Pulse 89 Respir 16 BP 134/72 POx (L/Min)(%) 95 At Rest FOCUSED EXAMINATION GEN: Well-developed nontoxic male Vascular: 2+ RP, capillary refill is brisk Neuro: Sensation is grossly intact MSK: From the proximal third forearm distally is an edematous forearm and wrist along with the hand with no skin changes, temperature changes or sensory changes. Olecranon bursa is still spongy in appearance on the right but decreased in size. No fluctuation. MDM: reassured. Reminded that Elías wrap should have been removed every couple of hours and not worn throughout the night. is advised in range of motion exercises to improve the reabsorption of fluid and to return here if persists or worsens. No clinical evidence of neurovascular, neurosensory or gross functional deficit at this time. ASSESSMENT/PLAN Localized edema As above able to verbalize understanding of plan of care and agrees. >> MEDICATIONS Reviewed and reconciled with [facility]/ FLORENTINO ARREOLA MS,PA-C PHYSICIAN RUM PROCESSING OPERATOR Signed: 11/02/2023 13:12 FLORENTINO ERNST [facility]
--- OUTSIDE RECORDS SUMMARY | 2024-06-14 13:20 | XMS_ITS | Encounter Summary ---
Author Name [facility] [place] [facility] [place] [place] Address [address] [place] [id number] Care Team Providers Care Wrapper Stripper Name Role Phone TOÑO CAI Primary Care [...] O MEDEX BRONZ E Mar 19, 2004 [id number] HOLLIE SHEPHERD PATIENT [place] MED[place] SUPPLEMEN MASTER MEDEX BRONZ E Mar 19, 2004 [id number] [phone] HOLLIE SHEPHERD [place] SUPPLE[place] MASTER MEDEX BRONZ E Mar 19, 2004 [id number] [phone] HOLLIE SHEPHERD PATIENT BCBS [facility] MEDICARE SUPPLEMEN MASTER PSUED O MEDEX BRONZ E Mar 19, 2004 [id number] [phone] HOLLIE SHEPHERD PATIENT MEDICARE (WNR) MEDICARE (M) PART B Mar 19, 2004 PART B [id number] [phone] CORA,HOLLIE ALD PATIENT MEDICARE (WNR) MEDICARE (M) PART B Mar 19, 2004 PART B [id number] HOLLIE SHEPHERD ALD PATIENT MEDICARE (WNR) MEDICARE (M) PART B Mar 19, 2004 PART B [id number] CORAHOLLIE SILVA ALD PATIENT MEDICARE (WNR) MEDICARE (M) PART A Feb 17, 2003 PART A [id number] HOLLIE SHEPHERD ALD PATIENT MEDICARE (WNR) MEDICARE (M) PART A Feb 17, 2003 PART A [id number] [phone] HOLLIE SHEPHERD ALD PATIENT MEDICARE (WNR) MEDICARE (M) PART A Feb 17, 2003 PART A [id number] [phone] HOLLIE SHEPHERD PATIENT MEDICARE (WNR) MEDICARE (M) PART A Feb 17, 2003 PART A [id number] HOLLIE SHEPHERD PATIENT MEDICARE (WNR) MEDICARE (M) PART B Feb 17, 2003 PART B [id number] HOLLIE SHEPHERD PATIENT MEDICARE (WNR) MEDICARE (M) PART A Feb 17, 2003 PART A [id number] HOLLIE SHEPHERD PATIENT MEDICARE (WNR) MEDICARE (M) PART B Feb 17, 2003 PART B [id number] HOLLIE SHEPHERD PATIENT Selected Encounter This section includes the information on record at [place] for the Encounter. Date/Time Encounter Type Encounter Description Reason Pro vider Source Feb 13, 2024 09:56 AM Outpatient Encounter DERMATOLOGY IHE Encounter Template Text not used by [place] Plan of Treatment: Future Appointments (+ 6 months) and Future Tests (+/- 45 days) The Plan of Treatment section includes future care activities for the patient from all [place] treatmentfacilities. This section includes future appointments and future orders which are active, pending or scheduled. Future Appointments This section includes appointments that were scheduled to occur 6 months from the date of the Encounter, up to a maximum of 20 appointments. The data comes from all [place] treatment facilities. Appointment Date/Time Appointment Type Appointme nt Facility Name Feb 28, 2024 01:00 PM AMBULATORY [place] [facility] Feb 28, 2024 01:00 PM AM[facility]ULATORY [facility] [place] [facility] Mar 25, 2024 10:00 AM AMBULATORY - MEDICINE [facility] [place] [facility] Mar 25, 2024 10:30 AM AMBULATORY - MEDICINE [facility] [place] [facility] Apr 02, 2024 02:00 PM AMBULATORY - MEDICINE [facility] [place] [facility] Apr 04, 2024 02:00 PM AMBULATORY - MEDICINE [facility] [place] [facility] Apr 08, 2024 01:00 PM AMBULATORY - REHAB MEDICIN E [facility] [place] [facility] Apr 12, 2024 09:45 AM AMBULATORY - MEDICINE [facility] [place] [facility] Apr 16, 2024 10:00 AM AMBULATORY - REHAB MEDICIN [facility] [place] [facility] May 02, 2024 10:00 AM AMBULATORY - REHAB MEDICIN E [facility] [place] [facility] May 08, 2024 10:00 AM AMBULATORY - REHAB MEDICIN E [facility] [place] [facility] May 29, 2024 11:30 AM AMBULATORY - MEDICINE [facility] [place] [facility] Jun 05, 2024 12:00 PM AMBULATORY [place] [facility] Jun 05, 2024 12:00 PM AMBULATORY - PS[facility]CHIATRY [facility] [place] [facility] Jun 17, 2024 10:30 AM AMBULATORY - MEDICINE [facility] [place] [facility] Aug 06, 2024 10:00 AM AMBULATORY - MEDICINE [facility] [place] [facility] Social History: Smoking Status (Most [...] AM VA-TOBACCO [facility] Tobacco Use History This section includes a history of the smoking, or tobacco-related health factors, that were collected on or before the date of the Encounter. The data comes from the [place] facility where the Encounter took place. Date/Time Smoking Status/Tobac co Use Comment Facility Jun 05, 2023 11:00 AM VA-TOBACCO QUIT 15 YRS OR MORE [facility] [place] [facility] Jun 06, 2022 01:00 PM VA-TOBACCO FORMER USER [facility] [place] [facility] Jun 06, 2022 01:00 PM VA-TOBACCO QUIT 15 YRS OR MORE [facility] [place] [facility] Jun 30, 2021 02:37 PM VA-TOBACCO FORMER USER [facility] [place] [facility] Jun 30, 2021 02:37 PM VA-TOBACCO QUIT 5 TO < 15 YRS [facility] [place] [facility] May 22, 2020 03:30 PM VA-TOBACCO NEVER USED [facility] [place] [facility] May 08, 2018 02:03 PM VA-TOBACCO FORMER USER [facility] [place] [facility] May 08, 2018 02:03 PM VA-TOBACCO QUIT 15 YRS OR MORE [facility] [place] [facility] November 10, 2017 02:33 PM QUIT TOBACCO USE > 7 YEARS AGO [facility] [place] [facility] October 21, 2016 01:55 PM QUIT TOBACCO USE > 7 YEARS AGO [facility] [place] [facility] Sep 18, 2015 11:24 AM QUIT TOBACCO USE > 7 YEARS AGO stopped 50 years ago [facility] [place] [facility] May 19, 2005 08:01 AM HISTORY OF SMOKING [facility] [place] [facility] May 31, 2004 01:02 PM HISTORY OF SMOKING [facility] [place] [facility] Jun 04, 2003 07:57 AM HISTORY OF SMOKING [facility] [place] [facility] Jun 03, 2002 01:11 PM HISTORY OF SMOKING [facility] [place] [facility] Jun 03, 2002 01:11 PM QUIT TOBACCO USE > 7 YEARS AGO [facility] [place] [facility] Advance Directives: All historical and current Section Date Range: From patient's date of to the date document was created. This section includes ALL of a patient's completed or amended [place] Advance and Rescinded Directives. The entries below indicate that a directive exists for the patient, but an actual copy is not included with this document. The data comes from all [place] facilities. Date Advance Directives Provider Source Jun 02, 2023 ADVANCE DIRECTIVE JENNIFER QUIROS [facility] Radiology Reports: +/- 30 days of the [...] the Encounter. The data comes from all [place] treatment facilities. Date/Time Radiology Report Provider Source Feb 12, 2024 10:52 AM SPINE LUMBOSACRAL MIN 2 VIEWS: BEBO SHEPHERD [id number] -[phone] M Ex Date: FEB 12, 2024@10:52 Req Phys: TOÑO CAI Loc: CWM/NO/PACT 3 (Req'g Loc) Img Loc: [facility] Service: [place] [address] (Case 32 COMPLETE) SPINE LUMBOSACRAL MIN 2 VIEWS (RAD Detailed) CPT:09890 Reason for Study: acute pain. Clinical History: Please burn him a disc. Report Status: Verified Date Reported: FEB 13, 2024 Date Verified: FEB 13, 2024 Tax Staff Accountant E-Sig: Report: SPINE LUMBOSACRAL MIN 2 VIEWS HISTORY: acute pain. COMPARISON: None. TECHNIQUE: 3 view(s) of the lumbar spine, submitted to the [place] National Teleradiology Program (NTP) for interpretation. Impression: Normal lumbar lordosis is maintained. Vertebral bodies maintain normal heights. There is extensive anterior and posterior fusion with posterior transpedicular screws and rods and L2-L3 through L5-S1 interbody spacers. 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 No hardware failure. READING PHYSICIAN: Lorena Alcaraz M.D. -[id number] 02/12/2024 23:26 [facility] National Teleradiology Program [phone] (For Medical Practitioner Use Only) Attention Patients / Veterans: If you have questions or concerns about these test results, please contact your ordering provider or primary care team. Primary Diagnostic Code: NO ALERT REQUIRED Primary Interpreting Staff: RADIOLOGY,OUTSIDE SERVICE, Staff Physician / RADIOLOGY,OUTSIDE SERVICE [place] [facility] Encounter Notes: All associated encounter notes This section contains the clinical notes associated to the Encounter. Date/Time Encounter Note(s) Provider Source Feb 13, 2024 03:44 PM ADDENDUM: LOCAL TITLE: Addendum STANDARD TITLE: ADDENDUM DATE OF NOTE: FEB 13, 2024@15:44:17 ENTRY DATE: FEB 13, 2024@15:44:17 AUTHOR: TODD GALLOWAY COSIGNER: URGENCY: STATUS: COMPLETED 02/12/2024 ADDENDUM STATUS: COMPLETED [place] notified of biopsy results on 10/23/23. Paper copy mailed to his home today per request. Next appt with Derm in [place] is 04/04/24 at . Unable to reach today to ask what wound looks like look like and location. Most recent biospy was September 2023. /thomas/ TODD GALLOWAY LPN LPN Signed: 02/12/2024 16:00 [place] called again today and went right to voice mail. Message left. I let him know the biopsy results were reported to him in October and I mail a hard copy to him yesterday. I asked him to return my call to discuss what is going on and review the biopsy results with him. Clinic contact info left with my direct extension. /benny GALLOWAY LPN LPN Signed: 02/13/2024 15:48 Receipt Acknowledged By: 02/21/2024 11:07 /thomas/ VEGA PENA DNP, MICRO COMPUTER DATA PROCESSOR-C NURSE PRACTITIONER === --- Original Document --- 02/13/24 ADMINISTRATIVE NOTE: [place] walked in to the clinic requesting a sooner appointment as he is having an irritating scalp and scab issue. He would also like to be seen to go over his biopsy results with the provider. Please advise. The is scheduled for 04/04/2024 at 2:00pm. Please advise. /benny COPE Signed: 02/13/2024 10:00 Receipt Acknowledged By: 02/21/2024 11:07 /thomas/ VEGA PENA DNP, RADHA NURSE PRACTITIONER 02/14/2024 13:21 /thomas/ NANCY NOBLES LPN, [facility] Feb 13, 2024 09:56 AM ADMINISTRATIVE NOTE: LOCAL TITLE: ADMINISTRATIVE NOTE STANDARD TITLE: ADMINISTRATIVE NOTE DATE OF NOTE: FEB 13, 2024@09:56 ENTRY DATE: FEB 13, 2024@09:56:59 AUTHOR: ANUM COPE SA COSIGNER: URGENCY: STATUS: COMPLETED ADMINISTRATIVE NOTE Has ADDENDA walked in to the clinic requesting a sooner appointment as he is having an irritating scalp and scab issue. He would also like to be seen to go over his biopsy results with the provider. Please advise. The is scheduled for 04/04/2024 at 2:00pm. Please advise. /benny COPE Signed: 02/13/2024 10:00 Receipt Acknowledged By: 02/21/2024 11:07 /benny PENA DNP, RADHA NURSE PRACTITIONER 02/14/2024 13:21 /thomas/ TODD GALLOWAY LPN LPN 02/13/2024 ADDENDUM STATUS: COMPLETED 02/12/2024 ADDENDUM STATUS: COMPLETED [place] notified of biopsy results on 10/23/23. Paper copy mailed to his home today per request. Next appt with Derm in [place] is 04/04/24 at 2p. Unable to reach today to ask what wound looks like look like and location. Most recent biospy was September 2023. /benny GALLOWAY LPN LPN Signed: 02/12/2024 16:00 called again today and went right to voice mail. Message left. I let him know the biopsy results were reported to him in October and I mail a hard copy to him yesterday. I asked him to return my call to discuss what is going on and review the biopsy results with him. Clinic contact info left with my direct extension. /thomas/ TODD GALLOWAY LPN LPN Signed: 02/13/2024 15:48 Receipt Acknowledged By: 02/21/2024 11:07 /thomas/ VEGA PENA DNP, MICRO COMPUTER DATA PROCESSOR-C NURSE PRACTITIONER ANUM COPE [place] [facility]
--- OUTSIDE RECORDS SUMMARY | 2024-06-14 13:20 | XMS_ITS | Encounter Summary ---
Author Name [facility] [place] Address [address] [place] [id number] Care Team Providers Care Rural Service Engineer Name Role Phone TOÑO CAI Primary [...] O MEDEX BRONZ E Mar 19, 2004 [id number] [phone] HOLLIE SHEPHERD PATIENT BCBS MD MEDICARE SUPPLEMEN MASTER MEDEX BRONZ E Mar 19, 2004 [id number] [phone] HOLLIE SHEPHERD PATIENT BCBS MD MEDICARE SUPPLEMEN MASTER MEDEX BRONZ E Mar 19, 2004 [id number] [phone] HOLLIE SHEPHERD PATIENT BCBS [facility] MEDICARE SUPPLEMEN MASTER PSUED O MEDEX BRONZ E Mar 19, 2004 [id number] HOLLIE SHEPHERD PATIENT MEDICARE (WNR) MEDICARE (M) PART B Mar 19, 2004 PART B [id number] HOLLIE SHEPHERD PATIENT MEDICARE (WNR) MEDICARE (M) PART B Mar 19, 2004 PART B [id number] [phone] HOLLIE SHEPHERD ALD PATIENT MEDICARE (WNR) MEDICARE (M) PART B Mar 19, 2004 PART B [id number] HOLLIE SHEPHERD ALD PATIENT MEDICARE (WNR) MEDICARE (M) PART A Feb 17, 2003 PART A [id number] HOLLIE SHEPHERD ALD PATIENT MEDICARE (WNR) MEDICARE (M) PART A Feb 17, 2003 PART A [id number] HOLLIE SHEPHERD ALD PATIENT MEDICARE (WNR) MEDICARE (M) PART A Feb 17, 2003 PART A [id number] HOLLIE SHEPHERD PATIENT MEDICARE (WNR) MEDICARE (M) PART A Feb 17, 2003 PART A [id number] [phone] HOLLIE SHEPHERD PATIENT MEDICARE (WNR) MEDICARE (M) PART B Feb 17, 2003 PART B [id number] HOLLIE SHEPHERD PATIENT MEDICARE (WNR) MEDICARE (M) PART A Feb 17, 2003 PART A [id number] HOLLIE SHEPHERD PATIENT MEDICARE (WNR) MEDICARE (M) PART B Feb 17, 2003 PART B [id number] HOLLIE SHEPHERD PATIENT Selected Encounter This section includes the information on record at [place] for the Encounter. Date/Time Encounter Type Encounter Description Reason Pro vider Source November 06, 2023 12:00 PM Outpatient Encounter COMMUNITY CARE CONSULT IHE Encounter Template Text not used by [place] Plan of Treatment: Future Appointments (+ 6 months) and Future Tests (+/- 45 days) The Plan of Treatment section includes future care activities for the patient from all [place] treatmentfacilities. This section includes future appointments and future orders which are active, pending or scheduled. Future Appointments This section includes appointments that were scheduled to occur 6 months from the date of the Encounter, up to a maximum of 20 appointments. The data comes from all [place] treatment facilities. Appointment Date/Time Appointment Type Appointme nt Facility Name Nov 22, 2023 10:00 AM AMBULATORY - MEDICINE [facility] [place] [facility] Nov 27, 2023 02:00 PM AMBULATORY - MEDICINE [facility] [place] [facility] Feb 12, 2024 10:00 AM AMBULATORY - MEDICINE [facility] [place] [facility] Feb 28, 2024 01:00 PM AMBULATORY [place] [facility] Feb 28, 2024 01:00 PM AMBULATORY - PSYCHIATRY [facility] [place] [facility] Mar 25, 2024 10:00 AM AMBULATORY - MEDICINE [facility] [place] [facility] Mar 25, 2024 10:30 AM AMBULATORY - MEDICINE [facility] [place] [facility] Apr 02, 2024 02:00 PM AMBULATORY - MEDICINE [facility] [place] [facility] Apr 04, 2024 02:00 PM AMBULATORY - MEDICINE [facility] [place] [facility] Apr 08, 2024 01:00 PM AMBULATORY - REHAB MEDICIN [place] [facility] [place] [facility] Apr 12, 2024 09:45 AM AMBULATORY - MEDICINE [facility] [place] [facility] Apr 16, 2024 10:00 AM AMBULATORY - REHAB MEDICIN E [facility] [facility] May 02, 2024 10:00 AM AMBULATORY - REHAB MEDICIN E [facility] [place] [facility] May 08, 2024 10:00 AM AMBULATORY - REHAB MEDICIN E [facility] [place] [facility] Active, Pending, and Scheduled Orders [...] SPEC. UNKNOWN SP [facility] [place] [facility] Lab Results: +/- 30 days [...] Range Comment Oct 11, 2023 01:27 PM [facility] MICROALBUMIN CREATININE RATIO PANEL Specimen Type: URINE No comment entered. Ordering Provider: ALLIE CUELLO Report Released Date/Time: Jul 26, 2023 10:12 AM Reporting Lab: [address] [address] Performing Lab: [address] [address] MICROALBUMIN/C REATININE RATIO 7.1 mg/g 0-29.9 MICROALBUMIN,Q UANTITATIVE 0.8 mg/dL RR UNAVAIL CREATININE URINE 113.29 mg/dL Oct 10, 2023 03:42 PM [facility] LIVER FUNCTION Specimen Type: SERUM Comment: *BASIC METABOLIC PANEL (fasting) Not Performed: Oct 10, 2023@15:51 b *MEDICAL GENETICIST Reason: dup *LIPID PANEL FASTING Not Performed: Oct 10, 2023@15:51 by [id number] *MEDICAL GENETICIST Reason: dup Ordering Provider: JUAN LUIS CAI Report Released Date/Time: Jun 05, 2023 11:22 AM Reporting Lab: [facility] [address] [facility] [address] Performing Lab: [address] [address] PROTEIN,TOTAL 6.0 g/dL 6.0-8.3 ALBUMIN 4.2 g/dL 3.5-5.0 ALKALINE PHOSPHATASE 89 U/L 40-150 AST 29 U/L 5-34 ALT 29 U/L BILIRUBIN, TOTAL 1.3 mg/dL H 0.2-1.2 BILIRUBIN, DIRECT 0.5 mg/dL 0-0.5 Oct 10, 2023 03:41 PM [facility] TESTOSTERONE, TOTAL (WHV) Specimen Type: SERUM No comment entered. Ordering Provider: ALLIE CUELLO Report Released Date/Time: Jul 26, 2023 10:12 AM Reporting Lab: [facility] [place] [facility] [address] [facility] [address] Performing Lab: [facility]ITALRH[facility]USETS [address] [address] TESTOSTERONE, TOTAL (WHV) 755.20 ng/dL 220.00-892 .00 Oct 10, 2023 03:41 PM [facility] PSA Specimen Type: SERUM No comment entered. Ordering Provider: ALLIE CUELLO Report Released Date/Time: Jul 26, 2023 10:12 AM Reporting Lab: [facility]ITAL[facility] [address] [facility] [address] Performing Lab: [facility] [address] PSA 4.74 ng/mL H 0.00-4.00 Oct 10, 2023 03:41 PM [facility] HEMOGLOBIN A1C PANEL Specimen Type: BLOOD [...] Jul 26, 2023 10:12 AM Reporting Lab: [facility] [address] Performing Lab: [facility] [address] HEMOGLOBIN A1C 6.7 H 4.0-5.6 Oct 10, 2023 03:41 PM [facility] LIPID PANEL FASTING Specimen Type: SERUM No comment entered. Ordering Provider: ALLIE CUELLO Report Released Date/Time: Jul 26, 2023 10:12 AM Reporting Lab: [facility] [address] [facility] [address] Performing Lab: [facility] [address] [address] CHOLESTEROL 96 mg/dL TRIGLYCERIDE 101 mg/dL 0-150 LDL calculated 44 mg/dL 0-129 CHOL/HDL 3.0 HDL CHOLESTEROL 32 mg/dL L 40-60 Oct 10, 2023 03:41 PM [facility] CALCIUM Specimen Type: SERUM No comment entered. Ordering Provider: ALLIE CUELLO Report Released Date/Time: Oct 10, 2023 07:35 AM Reporting Lab: [facility] [address] Performing Lab: [address] [address] CALCIUM 9.1 mg/dL 8.5-10.2 Oct 10, 2023 03:41 PM [facility] CBC Specimen Type: BLOOD No comment entered. Ordering Provider: ALLIE CUELLO Report Released Date/Time: Jul 26, 2023 10:12 AM Reporting Lab: [address] [address] Performing Lab: [address] [address] WBC 5.42 10*3/uL 4.50-11.00 RBC 4.87 10*6/uL 4.23-5.66 HGB 12.5 g/dL L 12.8-17 HCT 39.4 39.2-50.4 MCV 80.9 fL L 82-99 MCHC 31.7 g/dL 30.8-35.1 PLT 123 10*3/uL L 140-360 RDW-CV 14.7 12.0-16.0 MCH 25.7 pg L 26.2-32.6 Oct 10, 2023 03:41 PM [facility] VITAMIN D (25-OH) Specimen Type: SERUM No comment entered. Ordering Provider: ALLIE CUELLO Report Released Date/Time: Oct 10, 2023 07:35 AM Reporting Lab: [address] [address] Performing Lab: [address] [address] VITAMIN D (25-OH) 41 ng/mL 20-50 Oct 10, 2023 03:41 PM [facility] BASIC METABOLIC PANEL (fasting) Specimen Type: SERUM No comment entered. Ordering Provider: ALLIE CUELLO Report Released Date/Time: Jul 26, 2023 10:12 AM Reporting Lab: [facility] [address] [facility] [address] Performing Lab: [facility] [address] [facility] [address] UREA NITROGEN 22 mg/dL 7-25 GLUCOSE 172 [...] took place. Date/Time Current Smoking Status Comment [facility] Jun 05, 2023 11:00 AM VA-TOBACCO FORMER USER [facility] Tobacco Use History This section includes a history of the smoking, or tobacco-related health factors, that were collected on or before the date of the Encounter. The data comes from the [place] facility where the Encounter took place. Date/Time Smoking Status/Tobac co Use Comment Facility Jun 05, 2023 11:00 AM VA-TOBACCO QUIT 15 YRS OR MORE [facility] Jun 06, 2022 01:00 PM VA-TOBACCO FORMER USER [facility] Jun 06, 2022 01:00 PM VA-TOBACCO QUIT 15 YRS OR MORE [facility] Jun 30, 2021 02:37 PM VA-TOBACCO FOR[facility] USER [facility] Jun 30, 2021 02:37 PM VA-TOBACCO QUIT 5 TO < 15 YRS [place] [facility] [facility] May 22, 2020 03:30 PM VA-TOBACCO NEVER USED [facility] May 08, 2018 02:03 PM VA-TOBACCO FORMER USER [place] [facility] May 08, 2018 02:03 PM VA-TOBACCO QUIT 15 YRS OR MORE [facility] November 10, 2017 02:33 PM QUIT TOBACCO USE > 7 YEARS AGO [place] [facility] [place] [facility] October 21, 2016 01:55 PM QUIT TOBACCO USE > 7 YEARS AGO [facility] Sep 18, 2015 11:24 AM QUIT TOBACCO USE > 7 YEARS AGO stopped 50 years ago [facility] May 19, 2005 08:01 AM HISTORY OF SMOKING [facility] May 31, 2004 01:02 PM HISTORY OF SMOKING [facility] Jun 04, 2003 07:57 AM HISTORY OF SMOKING [facility] Jun 03, 2002 01:11 PM HISTORY OF SMOKING [facility] Jun 03, 2002 01:11 PM QUIT TOBACCO USE > 7 YEARS AGO [facility] Advance Directives: All historical and current Section Date Range: From patient's date of to the date document was created. This section includes ALL of a patient's completed or amended [place] Advance and Rescinded Directives. The entries below indicate that a directive exists for the patient, but an actual copy is not included with this document. The data comes from all [facility]. Date Advance Directives Provider Source Jun 02, 2023 ADVANCE DIRECTIVE JENNIFER QUIROS [facility] Pathology Reports: +/- 30 days of [...] URGENCY: STATUS: COMPLETED $APHDR Reporting Lab: [facility] [CLIA# [id number]] [address] [place] [address] - - - - - - - [...] - - - - POSTOPERATIVE DIAGNOSIS: Surgeon/physician: VGEA PENA =-=-=-=-=-=-=-=-=-=-=-=-=-=- =-=-=-=-=-=-=-=-=-=-=-=-=-=- =-=-=-=-=-=-=-=-=-=-=-= - - - - - - - - - - - - - - - - - - - - - - - - - - - - - - - - - - - - - - - - PATHOLOGY REPORT Accession No. [facility] [id number] - - - - - - - - - - - - - - - - - - - - - - - - - - - - - - - - - - - - - - - - Gross description: [facility] 3647;A;1;CORA,Nisa This is a [facility] case number [facility] [id number]. Received in formalin is a [...] lateral and deep tissue margins. CPT codes [id number] /thomas/ LESTER ANDERSON MD Board Certified Dermatopathologist Signed Oct 12, 2023@10:54 Performing Laboratory: Surgical Pathology Report Performed By: [facility] [CLIA# [id number]] [address] [place] [address] $FTR - - - - - - [...] - - BEBO SHEPHERD STANDARD FORM 515 ID:[id number] SEX:M :1940 AGE: 83 LOC:CWM/NO/CVT/DERMATOLOGY/N P PCP: RUBY Long /thomas/ LESTER ANDERSON MD Board Certified Dermatopathologist Signed: 10/12/2023 10:54 LESTER ANDERSON MD [facility] Encounter Notes: All associated encounter notes This section contains the clinical notes associated to the Encounter. Date/Time Encounter Note(s) Provider Source November 06, 2023 12:00 PM NONVA CONSULT: LOCAL TITLE: COMMUNITY CARE-CONSULT RESULT NOTE STANDARD TITLE: NONVA CONSULT DATE OF NOTE: NOVEMBER 06, 2023@12:00 ENTRY DATE: NOVEMBER 10, 2023@12:56:24 AUTHOR: JENNIFER QUIROS EXP COSIGNER: URGENCY: STATUS: COMPLETED VistA Imaging - Scanned Document SCANNED DOCUMENT SIGNATURE NOT REQUIRED Electronically Filed: 11/10/2023 by: JENNIFER BOWERS [facility]
--- OUTSIDE RECORDS SUMMARY | 2024-06-14 13:20 | XMS_ITS | Encounter Summary ---
Author Name [place] Address [address] [place] [id number] Care Team Providers Care Airline Reservation Agent Name Role Phone TOÑO CAI Primary Care [...] [place] MEDICARE SUPPLEMEN MASTER PSUED O MEDEX BRONZ E Mar 19, 2004 [id number] HOLLIE SHEPHERD PATIENT [place] MED[place] SUPPLEMEN MASTER MEDEX BRONZ E Mar 19, 2004 [id number] HOLLIE SHEPHERD PATIENT [place] MED[place] SUPPLEMEN MASTER MEDEX BRONZ E Mar 19, 2004 [id number] [phone] HOLLIE SHEPHERD PATIENT BCBS [facility] MEDICARE SUPPLEMEN MASTER PSUED O MEDEX BRONZ E Mar 19, 2004 [id number] [phone] HOLLIE SHEPHERD PATIENT MEDICARE (WNR) MEDICARE (M) PART B Mar 19, 2004 PART B [id number] [phone] HOLLIE SHEPHERD PATIENT MEDICARE (WNR) MEDICARE (M) PART B Mar 19, 2004 PART B [id number] HOLLIE SHEPHERD ALD PATIENT MEDICARE (WNR) MEDICARE (M) PART B Mar 19, 2004 PART B [id number] HOLLIE SHEPHERD ALD PATIENT MEDICARE (WNR) MEDICARE (M) PART A Feb 17, 2003 PART A [id number] [phone] HOLLIE SHEPHERD ALD PATIENT MEDICARE (WNR) MEDICARE (M) PART A Feb 17, 2003 PART A [id number] [phone] [id number] HOLLIE SHEPHERD ALD PATIENT MEDICARE (WNR) MEDICARE (M) PART A Feb 17, 2003 PART A [id number] HOLLIE SHEPHERD PATIENT MEDICARE (WNR) MEDICARE (M) PART A Feb 17, 2003 PART A [id number] [phone] HOLLIE SHEPHERD PATIENT MEDICARE (WNR) MEDICARE (M) PART B Feb 17, 2003 PART B [id number] HOLLIE SHEPHERD PATIENT MEDICARE (WNR) MEDICARE (M) PART A Feb 17, 2003 PART A [id number] HOLLIE SHEPHERD PATIENT MEDICARE (WNR) MEDICARE (M) PART B Feb 17, 2003 PART B [id number] HOLLIE SHEPHERD PATIENT Selected Encounter This section includes the information on record at [place] for the Encounter. Date/Time Encounter Type Encounter Description Reason Pro vider Source Feb 28, 2024 12:00 AM Outpatient Encounter EVENT (HISTORICAL) IHE Encounter Template Text not used by [place] Plan of Treatment: Future Appointments (+ 6 [...] Date/Time Appointment Type Appointme nt Facility Name Mar 25, 2024 10:00 AM AMBULATORY - MEDICINE [facility] [place] [facility] Mar 25, 2024 10:30 AM AMBULATORY - MEDICINE [facility] [place] [facility] Apr 02, 2024 02:00 PM AMBULATORY - MEDICINE [facility] [place] [facility] Apr 04, 2024 02:00 PM AMBULATORY - MEDICINE [facility] [place] [facility] Apr 08, 2024 01:00 PM AMBULATORY - REHAB MEDICIN E [facility] [place] [facility] Apr 12, 2024 09:45 AM AMBULATORY - MEDICINE [facility] [place] [facility] Apr 16, 2024 10:00 AM AMBULATORY - REHAB MEDICIN E [facility] [place] [facility] May 02, 2024 10:00 AM AMBULATORY - REHAB MEDICIN E [facility] [place] [facility] May 08, 2024 10:00 AM AMBULATORY - REHAB MEDICIN E [facility] [place] [facility] May 29, 2024 11:30 AM AMBULATORY - MEDICINE [facility] [place] [facility] Jun 05, 2024 12:00 PM AMBULATORY [place] [facility] Jun 05, 2024 12:00 PM AMBULATORY - PSYCHIATRY [facility] [place] [facility] Jun 17, 2024 10:30 AM AMBULATORY - MEDICINE [facility] [place] [facility] Aug 06, 2024 10:00 AM AMBULATORY - MEDICINE [place] [facility] Social History: Smoking Status (Most current) and Tobacco Use (All prior to encounter date) This section includes the most current, and the historical, smoking and tobacco- related health factors from the [place] facility where the Encounter took place. Current Smoking Status This section includes the most current smoking, or tobacco-related health factor, from the [place] facility where the Encounter took place. Date/Time Current Smoking Status Comment Ninfa chahaly Jun 05, 2023 11:00 AM VA-TOBACCO [facility] Tobacco Use History This section includes a history of the smoking, or tobacco-related health factors, that were collected on or before the date of the Encounter. The data comes from the [place] facility where the Encounter took place. Date/Time Smoking Status/Tobac co Use Comment Facility Jun 05, 2023 11:00 AM VA-TOBACCO QUIT 15 YRS OR MORE [place] [facility] [place] [facility] Jun 06, 2022 01:00 PM VA-TOBACCO FORMER USER [facility] [facility] Jun 06, 2022 01:00 PM VA-TOBACCO QUIT 15 YRS OR MORE [place] [facility] [place] [facility] Jun 30, 2021 02:37 PM VA-TOBACCO FORMER USER [facility] [facility] Jun 30, 2021 02:37 PM VA-TOBACCO QUIT 5 TO < 15 YRS [place] [facility] [place] [facility] May 22, 2020 03:30 PM VA-TOBACCO NEVER USED [place] [facility] [place] [facility] May 08, 2018 02:03 PM VA-TOBACCO FORMER USER [place] [facility] [place] [facility] May 08, 2018 02:03 PM VA-TOBACCO QUIT 15 YRS OR MORE [place] [facility] [place] [facility] November 10, 2017 02:33 PM QUIT TOBACCO USE > 7 YEARS AGO [facility] [place] [facility] October 21, 2016 01:55 PM QUIT TOBACCO USE > 7 YEARS AGO [facility] [place] [facility] Sep 18, 2015 11:24 AM QUIT TOBACCO USE > 7 YEARS AGO stopped 50 years ago [facility] [place] [facility] May 19, 2005 08:01 AM HISTORY OF SMOKING [place] [facility] [place] [facility] May 31, 2004 01:02 PM HISTORY OF SMOKING [place] [facility] [place] [facility] Jun 04, 2003 07:57 AM HISTORY OF SMOKING [place] [facility] [place] [facility] Jun 03, 2002 01:11 PM HISTORY OF SMOKING [place] [facility] [place] [facility] Jun 03, 2002 01:11 PM QUIT TOBACCO USE > 7 YEARS AGO [place] [facility] [place] [facility] Advance Directives: All historical and [...] Jun 02, 2023 ADVANCE DIRECTIVE JENNIFER QUIROS [place] [facility] Radiology Reports: +/- 30 days of [...] the Encounter. The data comes from all [place] treatment facilities. Date/Time Radiology Report Provider Source Feb 12, 2024 10:52 AM SPINE LUMBOSACRAL MIN 2 VIEWS: BEBO SHEPHERD [id number] -[id number] M Exm Date: FEB 12, 2024@10:52 Req Phys: TOÑO CAI Loc: CWM/NO/PACT 3 (Req'g Loc) Img Loc: [facility] 1 Service: Unknown [place] [address] (Case 32 COMPLETE) SPINE LUMBOSACRAL MIN 2 VIEWS (RAD Detailed) CPT:75276 Reason for Study: acute pain. Clinical History: Please burn him a disc. Report Status: Verified Date Reported: FEB 13, 2024 Date Verified: FEB 13, 2024 Dsp Engineer E-Sig: Report: SPINE LUMBOSACRAL MIN 2 VIEWS HISTORY: acute pain. COMPARISON: None. TECHNIQUE: 3 view(s) of the lumbar spine, submitted to the [place] National Teleradiology Program (NTP) for interpretation. Impression: Normal lumbar lordosis is maintained. Vertebral bodies maintain normal heights. There is extensive anterior and posterior fusion with posterior transpedicular screws and rods and L2-L3 through L5-S1 interbody spacers. 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 No hardware failure. READING PHYSICIAN: Lorena Alcaraz M.D. -[id number] 02/12/2024 23:26 [facility] National Teleradiology Program [phone] (For Medical Practitioner Use Only) Attention Patients / Veterans: If you have questions or concerns about these test results, please contact your ordering provider or primary care team. Primary Diagnostic Code: NO ALERT REQUIRED Primary Interpreting Staff: RADIOLOGY,OUTSIDE SERVICE, Staff Physician / RADIOLOGY,OUTSIDE SERVICE [facility] Encounter Notes: All associated encounter notes This section contains the clinical notes associated to the Encounter. Date/Time Encounter Note(s) Provider Source Feb 28, 2024 12:00 AM NONVA CONSULT: LOCAL TITLE: [facility] CARE-CONSULT RESULT NOTE STANDARD TITLE: NONVA CONSULT DATE OF NOTE: FEB 28, 2024 ENTRY DATE: MAR 15, 2024@10:47:33 AUTHOR: OTILIO LANDAVERDE EXP COSIGNER: URGENCY: STATUS: COMPLETED VistA Imaging - Scanned Document SCANNED DOCUMENT SIGNATURE NOT REQUIRED Electronically Filed: 03/15/2024 by: OTILIO LANDAVERDE SALES AND MERCHANDISING REPRESENTATIVE OTILIO LANDAVERDE [facility]
--- OUTSIDE RECORDS SUMMARY | 2024-06-14 13:20 | XMS_ITS ---
Author Name [facility] [place] Address [address] [place] [id number] Care Team Providers Care Digital Asset Coordinator Name Role Phone TOÑO CAI Primary Care [...] Relationship to Policy Wen [place] MED[place] SUPPLEMEN MASTER PSUED O MEDEX BRONZ E Mar 19, 2004 [id number] HOLLIE SHEPHERD [place]IENT [place] SUPPLEMEN MASTER MEDEX BRONZ E Mar 19, 2004 [id number] [phone] HOLLIE SHEPHERD [place] SUPPLEMEN MASTER MEDEX BRONZ E Mar 19, 2004 [id number] [phone] HOLLIE SHEPHERD PATIENT BCBS [facility] MEDICARE SUPPLEMEN MASTER PSUED O MEDEX BRONZ E Mar 19, 2004 [id number] HOLLIE SHEPHERD PATIENT MEDICARE (WNR) MEDICARE (M) PART B Mar 19, 2004 PART B [id number] CORA,HOLLIE ALD PATIENT MEDICARE (WNR) MEDICARE (M) PART B Mar 19, 2004 PART B [id number] HOLLIE SHEPHERD ALD PATIENT MEDICARE (WNR) MEDICARE (M) PART B Mar 19, 2004 PART B [id number] HOLLIE SHEPHERD ALD PATIENT MEDICARE (WNR) MEDICARE (M) PART A Feb 17, 2003 PART A [id number] [phone] HOLLIE SHEPHERD ALD PATIENT MEDICARE (WNR) MEDICARE (M) PART A Feb 17, 2003 PART A [id number] HOLLIE SHEPHERD ALD PATIENT MEDICARE (WNR) MEDICARE (M) PART A Feb 17, 2003 PART A [id number] HOLLIE SHEPHERD ALD PATIENT MEDICARE (WNR) MEDICARE (M) PART A Feb 17, 2003 PART A [id number] [phone] HOLLIE SHEPHERD ALD PATIENT MEDICARE (WNR) MEDICARE (M) PART B Feb 17, 2003 PART B [id number] HOLLIE SHEPHERD PATIENT MEDICARE (WNR) MEDICARE (M) PART A Feb 17, 2003 PART A [id number] HOLLIE SHEPHERD PATIENT MEDICARE (WNR) MEDICARE (M) PART B Feb 17, 2003 PART B [id number] HOLLIE SHEPHERD PATIENT Selected Encounter This section includes the information on record at [place] for the Encounter. Date/Time Encounter Type Encounter Description Reason Provider Source Feb 28, 2024 01:00 PM OFFICE O/P EST MOD 30 MIN [facility] - IND ICD-10-CM F33.9 Major depressive disorder, recurrent, unspecified MEREDITH,GIHYUN E Encounter Template Text not used by [place] Assessments - Encounter Diagnoses This section includes the primary and secondary diagnoses documented for the Encounter. Date/Time Primary/Secondary Diagnosis Diagnosis Name Provider Source Mar 13, 2024 01:50 PM PRIMARY Major depressive disorder, recurrent, unspecified MEREDITH,GIHYUN [facility] Plan of Treatment: Future Appointments (+ 6 months) and Future Tests (+/- 45 days) The Plan of Treatment section includes future care activities for the patient from all [place] [facility]. This section includes future appointments and future orders which are active, pending or scheduled. Future Appointments This section includes appointments that were scheduled to occur 6 months from the date of the Encounter, up to a maximum of 20 appointments. The data comes from all [place] treatment facilities. Appointment Date/Time Appointment Type Appointme nt Facility Name Mar 25, 2024 10:00 AM [facility]ORY [facility] [place] [facility] Mar 25, 2024 10:30 AM AMBULATORY [facility]IC[facility] [place] [facility] Apr 02, 2024 02:00 PM AMBULATORY - MEDICINE [facility] [place] [facility] Apr 04, 2024 02:00 PM AMBULATORY - MEDICINE [facility] [place] [facility] Apr 08, 2024 01:00 PM AMBULATORY - REHAB MEDICIN E [facility] [place] [facility] Apr 12, 2024 09:45 AM AMBULATORY - MEDICINE [facility] [place] [facility] Apr 16, 2024 10:00 AM AMBULATORY - REHAB MEDICIN E [facility] [place] [facility] May 02, 2024 10:00 AM AMBULATORY - REHAB MEDICIN E [facility] [place] [facility] May 08, 2024 10:00 AM AMBULATORY - REHAB MEDICIN E [facility] [place] [facility] May 29, 2024 11:30 AM AMBULATORY - MEDICINE [facility] [place] [facility] Jun 05, 2024 12:00 PM AM[place]ORY [place] [facility] Jun 05, 2024 12:00 PM AMBULATORY - PSYCHIATRY [facility] [place] [facility] Jun 17, 2024 10:30 AM AMBULATORY - MEDICINE [facility] [place] [facility] Aug 06, 2024 10:00 AM AMBULATORY - MEDICINE [place] [facility] [place] [facility] Advance Directives: All historical and current Section Date Range: From patient's date of to the date document was created. This section includes ALL of a patient's completed or amended [place] Advance and Rescinded Directives. The entries below indicate that a directive exists for the patient, but an actual copy is not included with this document. The data comes from all [place] facilities. Date Advance Directives Provider Source Jun 02, 2023 ADVANCE DIRECTIVE JENNIFER QUIROS [facility] Radiology Reports: +/- 30 days of [...] the Encounter. The data comes from all [place] treatment facilities. Date/Time Radiology Report Provider Source Feb 12, 2024 10:52 AM SPINE LUMBOSACRAL MIN 2 VIEWS: BEBO SHEPHERD [id number] -[id number] M Exm Date: FEB 12, 2024@10:52 Req Phys: TOÑO CAI Loc: CWM/NO/PACT 3 (Req'g Loc) Img Loc: [facility] 1 Service: Unknown [place] [facility] [place] [address] (Case 32 COMPLETE) SPINE LUMBOSACRAL MIN 2 VIEWS (RAD Detailed) CPT:71963 Reason for Study: acute pain. Clinical History: Please burn him a disc. Report Status: Verified Date Reported: FEB 13, 2024 Date Verified: FEB 13, 2024 Dairy Inspector E-Sig: Report: SPINE LUMBOSACRAL MIN 2 VIEWS HISTORY: acute pain. COMPARISON: None. TECHNIQUE: 3 view(s) of the lumbar spine, submitted to the [place] National Teleradiology Program (NTP) for interpretation. Impression: Normal lumbar lordosis is maintained. Vertebral bodies maintain normal heights. There is extensive anterior and posterior fusion with posterior transpedicular screws and rods and L2-L3 through L5-S1 interbody spacers. 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 No hardware failure. READING PHYSICIAN: Lorena Alcaraz M.D. -[id number] 02/12/2024 23:26 [facility] National Teleradiology Program [phone] (For Medical Practitioner Use Only) Attention Patients / Veterans: If you have questions or concerns about these test results, please contact your ordering provider or primary care team. Primary Diagnostic Code: NO ALERT REQUIRED Primary Interpreting Staff: RADIOLOGY,OUTSIDE SERVICE, Staff Physician / RADIOLOGY,OUTSIDE SERVICE [facility] Encounter Notes: All associated encounter notes This section contains the clinical notes associated to the Encounter. Date/Time Encounter Note(s) Provider Source Feb 28, 2024 03:51 PM MENTAL HEALTH NOTE : LOCAL TITLE: TELEMENTAL HEALTH NOTE STANDARD TITLE: MENTAL HEALTH NOTE DATE OF NOTE: FEB 28, 2024@15:51 ENTRY DATE: FEB 28, 2024@15:51:13 AUTHOR: RADHA HARPER EXP COSIGNER: URGENCY: STATUS: COMPLETED Clinical services provided by Radha Harper MD, staff psychiatrist. Clinical services are being provided via [facility] from the [facility] ([facility] to the [facility] through the [facility] Clinical Resource Hub. was seen on FEB 28, [address] [facility] Clinical Resource Hub provider Radha Harper MD via telehealth in the following clinic: CWM V01 CRH MH MD 04 PT CWM V01 CRH MH PSY MD 04 PT CWM GO V01 CRH MH PSY MD 04 PT CWM PO V01 CHR MH PSY MD 04 PT CWM FO V01 CRH MH PSY MD 04 PT CWM WO V01 CHR MH PSY MD 04 PT CWM SO V01 CHR MH PSY MD 04 PT Fic V01 CRH MHC Psytr 04 PT Note title: Psychiatry Note Please see JLV for complete clinic note at: [facility] Service Delivery Method: CVT Length of Service: 30 minutes /thomas/ Radha Harper MD PSYCHIATRIST, PSYCHIATRY Signed: 02/28/2024 15:51 RADHA HARPER [facility]
--- OUTSIDE RECORDS SUMMARY | 2024-06-14 13:20 | XMS_ITS | Encounter Summary ---
Author Name [facility] [place] Address [address] [place] [address] Care Team Providers Care Business Objects Analyst Name Role Phone TOÑO CAI Primary Care [...] Relationship to Policy Wen [place] MEDICARE SUPPLEMEN MASTER PSUED O MEDEX BRONZ E Mar 19, 2004 [id number] HOLLIE SHEPHERD PATIENT [place] MEDICARE SUPPLEMEN MASTER MEDEX BRONZ E Mar 19, 2004 [id number] [id number] HOLLIE SHEPHERD PATIENT [place] MED[place] SUPPLEMEN MASTER MEDEX BRONZ E Mar 19, 2004 [id number] [phone] HOLLIE SHEPHERD PATIENT BCBS [facility] MEDICARE SUPPLEMEN MASTER PSUED O MEDEX BRONZ E Mar 19, 2004 [id number] HOLLIE SHEPHERD PATIENT MEDICARE (WNR) MEDICARE (M) PART B Mar 19, 2004 PART B [id number] HOLLIE SHEPHERD PATIENT MEDICARE (WNR) MEDICARE (M) PART B Mar 19, 2004 PART B [id number] HOLLIE SHEPHERD ALD PATIENT MEDICARE (WNR) MEDICARE (M) PART B Mar 19, 2004 PART B [id number] [phone] [id number] HOLLIE SHEPHERD ALD PATIENT MEDICARE (WNR) MEDICARE (M) PART A Feb 17, 2003 PART A [id number] HOLLIE SHEPHERD ALD PATIENT MEDICARE (WNR) MEDICARE (M) PART A Feb 17, 2003 PART A [id number] HOLLIE SHEPHERD ALD PATIENT MEDICARE (WNR) MEDICARE (M) PART A Feb 17, 2003 PART A [id number] HOLLIE SHEPHERD PATIENT MEDICARE (WNR) MEDICARE (M) PART A Feb 17, 2003 PART A [id number] HOLLIE SHEPHERD PATIENT MEDICARE (WNR) MEDICARE (M) PART B Feb 17, 2003 PART B [id number] [phone] HOLLIE SHEPHERD PATIENT MEDICARE (WNR) MEDICARE (M) PART A Feb 17, 2003 PART A [id number] HOLLIE SHEPHERD PATIENT MEDICARE (WNR) MEDICARE (M) PART B Feb 17, 2003 PART B [id number] HOLLIE SHEPHERD PATIENT Selected Encounter This section includes the information on record at [place] for the Encounter. Date/Time Encounter Type Encounter Description Reason Pro vider Source Nov 22, 2023 12:00 AM Outpatient Encounter COMMUNITY CARE CONSULT IHE Encounter Template Text not used by [place] Plan of Treatment: Future Appointments (+ 6 months) and Future Tests (+/- 45 days) The Plan of Treatment section includes future care activities for the patient from all [place] treatmentfacilities. This section includes future appointments and future orders which are active, pending or scheduled. Future Appointments This section includes appointments that were scheduled to occur 6 months from the date of the Encounter, up to a maximum of 20 appointments. The data comes from all [place] treatment facilities. Appointment Date/Time Appointment Type Appointme nt Facility Name Nov 27, 2023 02:00 PM AMBULATORY - MEDICINE [facility] [place] [facility] Feb 12, 2024 10:00 AM AMBULATORY - MEDICINE [facility] [place] [facility] Feb 28, 2024 01:00 PM AMBUL[place]ORY [place] [facility] Feb 28, 2024 01:00 PM AMBULATORY - PS[facility]CHIATRY [facility] [place] [facility] Mar 25, 2024 10:00 AM AMBULATORY - MEDICINE [facility] [place] [facility] Mar 25, 2024 10:30 AM AMBULATORY - MEDICINE [facility] [place] [facility] Apr 02, 2024 02:00 PM AMBULATORY - MEDICINE [facility] [place] [facility] Apr 04, 2024 02:00 PM AMBULATORY - MEDICINE [facility] [place] [facility] Apr 08, 2024 01:00 PM AMBULATORY - REHAB MEDICIN E [facility] [place] [facility] Apr 12, 2024 09:45 AM AMBULATORY - MEDICINE [facility] [place] [facility] Apr 16, 2024 10:00 AM AMBULATORY - REHAB MEDICIN E [facility] [place] [facility] May 02, 2024 10:00 AM AMBULATORY - REHAB MEDICIN E [facility] [place] [facility] May 08, 2024 10:00 AM AMBULATORY - REHAB MEDICIN E [facility] [place] [facility] Active, Pending, and Scheduled Orders This section [...] SPEC. UNKNOWN SP [facility] [place] [facility] Social History: Smoking Status (Most current) and [...] 05, 2023 11:00 AM VA-TOBACCO FORMER USER IN [facility] [place] [facility] Tobacco Use History This section includes a history of the smoking, or tobacco-related health factors, that were collected on or before the date of the Encounter. The data comes from the [place] facility where the Encounter took place. Date/Time Smoking Status/Tobac co Use Comment Facility Jun 05, 2023 11:00 AM VA-TOBACCO QUIT 15 YRS OR MORE IN [facility] [place] [facility] Jun 06, 2022 01:00 PM VA-TOBACCO FORMER USER [facility] [place] [facility] Jun 06, 2022 01:00 PM VA-TOBACCO QUIT 15 YRS OR MORE [facility] [place] [facility] Jun 30, 2021 02:37 PM VA-TOBACCO FORMER USER IN [facility] [place] [facility] Jun 30, 2021 02:37 PM VA-TOBACCO QUIT 5 TO < 15 YRS IN [facility] [place] [facility] May 22, 2020 03:30 PM VA-TOBACCO NEVER USED IN [facility] [place] [facility] May 08, 2018 02:03 PM VA-TOBACCO FORMER USER [facility] [place] [facility] May 08, 2018 02:03 PM VA-TOBACCO QUIT 15 YRS OR MORE [facility] [place] [facility] November 10, 2017 02:33 PM QUIT TOBACCO USE > 7 YEARS AGO [facility] [place] [facility] October 21, 2016 01:55 PM QUIT TOBACCO USE > 7 YEARS AGO [facility] [place] [facility] Sep 18, 2015 11:24 AM QUIT TOBACCO USE > 7 YEARS AGO stopped 50 years ago [facility] [place] [facility] May 19, 2005 08:01 AM HISTORY OF SMOKING [facility] [place] [facility] May 31, 2004 01:02 PM HISTORY OF SMOKING [facility] [place] [facility] Jun 04, 2003 07:57 AM HISTORY OF SMOKING IN [facility] [place] [facility] Jun 03, 2002 01:11 PM HISTORY OF SMOKING IN [facility] [place] [facility] Jun 03, 2002 01:11 PM QUIT TOBACCO USE > 7 YEARS AGO [facility] Advance Directives: All historical and current [...] Jun 02, 2023 ADVANCE DIRECTIVE JENNIFER QUIROS [facility] Encounter Notes: All associated encounter notes This section contains the clinical notes associated to the Encounter. Date/Time Encounter Note(s) Provider Source Nov 22, 2023 12:00 AM NONVA CONSULT: LOCAL TITLE: COMMUNITY CARE-CONSULT RESULT NOTE STANDARD TITLE: NONVA CONSULT DATE OF NOTE: NOV 22, 2023 ENTRY DATE: FEB 01, 2024@12:00:27 AUTHOR: BEAR MONTES EXP COSIGNER: URGENCY: STATUS: COMPLETED VistA Imaging - Scanned Document SCANNED DOCUMENT SIGNATURE NOT REQUIRED Electronically Filed: 02/01/2024 by: BEAR MONTENEGRO [facility]
--- OUTSIDE RECORDS SUMMARY | 2024-06-14 13:20 | XMS_ITS ---
Author Name [facility] [facility] [place] Address [address] [place] [id number] Care Team Providers Care Manager Rfid Name Role Phone TOÑO CAI Primary Care [...] Relationship to Policy Wen LUKE BCBS OF [place] MEDICARE SUPPLEMEN MASTER PSUED O MEDEX BRONZ E Mar 19, 2004 [id number] [phone] HOLLIE SHEPHERD [place]IENT [place] SUPPLEMEN MASTER MEDEX BRONZ E Mar 19, 2004 [id number] [phone] HOLLIE SHEPHERD [place] SUPPLEMEN MASTER MEDEX BRONZ E Mar 19, 2004 [id number] [phone] HOLLIE SHEPHERD PATIENT BCBS [facility] MEDICARE SUPPLEMEN MASTER PSUED O MEDEX BRONZ E Mar 19, 2004 [id number] [phone] HOLLIE SHEPHERD PATIENT MEDICARE (WNR) MEDICARE (M) PART B Mar 19, 2004 PART B [id number] [phone] HOLLIE SHEPHERD PATIENT MEDICARE (WNR) MEDICARE (M) PART B Mar 19, 2004 PART B [id number] [phone] HOLLIE SHEPHERD ALD PATIENT MEDICARE (WNR) MEDICARE (M) PART B Mar 19, 2004 PART B [id number] HOLLIE SHEPHERD ALD PATIENT MEDICARE (WNR) MEDICARE (M) PART A Feb 17, 2003 PART A [id number] HOLLIE SHEPHERD ALD PATIENT MEDICARE (WNR) MEDICARE (M) PART A Feb 17, 2003 PART A [id number] [phone] HOLLIE SHEPHERD ALD PATIENT MEDICARE (WNR) MEDICARE (M) PART A Feb 17, 2003 PART A [id number] [phone] HOLLIE SHEPHERD PATIENT MEDICARE (WNR) MEDICARE (M) PART A Feb 17, 2003 PART A [id number] HOLLIE SHEPHERD PATIENT MEDICARE (WNR) MEDICARE (M) PART B Feb 17, 2003 PART B [id number] [phone] HOLLIE SHEPHERD PATIENT MEDICARE (WNR) MEDICARE (M) PART A Feb 17, 2003 PART A [id number] HOLLIE SHEPHERD PATIENT MEDICARE (WNR) MEDICARE (M) PART B Feb 17, 2003 PART B [id number] HOLLIE SHEPHERD PATIENT Selected Encounter This section includes the information on record at [place] for the Encounter. Date/Time Encounter Type Encounter Description Reason Provider Source Feb 28, 2024 01:00 [facility] - IND ICD-10-CM F33.9 Major depressive disorder, recurrent, unspecified MEREDITH,GIHYUN IHE Encounter Template Text not used by [place] Assessments - Encounter Diagnoses This section includes the primary and secondary diagnoses documented for the Encounter. Date/Time Primary/Secondary Diagnosis Diagnosis Name Provider Source Mar 13, 2024 10:37 AM PRIMARY Major depressive disorder, recurrent, unspecified MEREDITH,GIHYUN [facility] Plan of Treatment: Future Appointments (+ 6 months) and Future Tests (+/- 45 days) The Plan of Treatment section includes [facility] care [facility] the [facility] This section includes future appointments and future orders which are active, pending or scheduled. Future Appointments This section includes appointments that were scheduled to occur 6 months from the date of the Encounter, up to a maximum of 20 appointments. The data comes from all [place] treatment facilities. Appointment Date/Time Appointment Type Appointme nt Facility Name Mar 25, 2024 10:00 AM AMBULATORY - MEDICINE [facility] Mar 25, 2024 10:30 AM AMBULATORY - MEDICINE [facility] [place] Apr 02, 2024 02:00 PM AMBULATORY - MEDICINE [facility] [place] Apr 04, 2024 02:00 PM AMBULATORY - MEDICINE [facility] [place] Apr 08, 2024 01:00 PM AMBULATORY - REHAB MEDICIN E [facility] Apr 12, 2024 09:45 AM AMBULATORY - MEDICINE [facility] [place] Apr 16, 2024 10:00 AM AMBULATORY - REHAB MEDICIN E [facility] May 02, 2024 10:00 AM AMBULATORY - REHAB MEDICIN E [facility] [place] May 08, 2024 10:00 AM AMBULATORY - REHAB MEDICIN E [facility] [place] May 29, 2024 11:30 AM AMBULATORY - MEDICINE [facility] [place] Jun 05, 2024 12:00 PM AMBULATORY [place] [place] [facility] Jun 05, 2024 12:00 PM AMBULATORY - PSYCHIATRY [facility] [place] Jun 17, 2024 10:30 AM AMBULATORY - MEDICINE [facility] [place] Aug 06, 2024 10:00 AM AMBULATORY - MEDICINE [place] [facility] [place] Social History: Smoking Status (Most current) and [...] took place. Date/Time Current Smoking Status Comment [facility] Jun 05, 2023 11:00 AM VA-TOBACCO FORMER USER [place] [facility] Tobacco Use History This section includes a history of the smoking, or tobacco-related health factors, that were collected on or before the date of the Encounter. The data comes from the [place] facility where the Encounter took place. Date/Time Smoking Status/Tobac co Use Comment Facility Jun 05, 2023 11:00 AM VA-TOBACCO QUIT 15 YRS OR MORE [facility] Jun 06, 2022 01:00 PM VA-TOBACCO FORMER USER [facility] [place] Jun 06, 2022 01:00 PM VA-TOBACCO QUIT 15 YRS OR MORE [facility] [place] Jun 30, 2021 02:37 PM VA-TOBACCO FORMER USER [facility] [place] Jun 30, 2021 02:37 PM VA-TOBACCO QUIT 5 TO < 15 YRS [facility] [place] May 22, 2020 03:30 PM VA-TOBACCO NEVER USED [facility] [place] May 08, 2018 02:03 PM VA-TOBACCO FORMER USER [facility] [place] May 08, 2018 02:03 PM VA-TOBACCO QUIT 15 YRS OR MORE [facility] [place] November 10, 2017 02:33 PM QUIT TOBACCO USE > 7 YEARS AGO [facility] [place] October 21, 2016 01:55 PM QUIT TOBACCO USE > 7 YEARS AGO [facility] [place] Sep 18, 2015 11:24 AM QUIT TOBACCO USE > 7 YEARS AGO stopped 50 years ago [facility] [place] May 19, 2005 08:01 AM HISTORY OF SMOKING [facility] [place] May 31, 2004 01:02 PM HISTORY OF SMOKING [facility] [place] Jun 04, 2003 07:57 AM HISTORY OF SMOKING [facility] [place] Jun 03, 2002 01:11 PM HISTORY OF SMOKING [facility] [place] Jun 03, 2002 01:11 PM QUIT TOBACCO USE > 7 YEARS AGO [facility] Advance Directives: All historical and current Section Date Range: From patient's date of to the date document was created. This section includes ALL of a patient's completed or amended [place] Advance and Rescinded Directives. The entries below indicate that a directive exists for the patient, but an actual copy is not included with this document. The data comes from all [place] facilities. Date Advance Directives Provider Source Jun 02, 2023 ADVANCE DIRECTIVE [facility] Radiology Reports: +/- 30 days of [...] the Encounter. The data comes from all [place] treatment facilities. Date/Time Radiology Report Provider Source Feb 12, 2024 10:52 AM SPINE LUMBOSACRAL MIN 2 VIEWS: BEBO SHEPHERD [id number] -[id number] M Exm Date: FEB 12, 2024@10:52 Req Phys: TOÑO CAI Loc: CWM/NO/PACT 3 (Req'g Loc[place] [facility] [place] [facility] Service: [place] [address] (Case 32 COMPLETE) SPINE LUMBOSACRAL MIN 2 VIEWS (RAD Detailed) CPT:96266 Reason for Study: acute pain. Clinical History: Please burn him a disc. Report Status: Verified Date Reported: FEB 13, 2024 Date Verified: FEB 13, 2024 Lens Mounter E-Sig: Report: SPINE LUMBOSACRAL MIN 2 VIEWS HISTORY: acute pain. COMPARISON: None. TECHNIQUE: 3 view(s) of the lumbar spine, submitted to the [place] National Teleradiology Program (NTP) for interpretation. Impression: Normal lumbar lordosis is maintained. Vertebral bodies maintain normal heights. There is extensive anterior and posterior fusion with posterior transpedicular screws and rods and L2-L3 through L5-S1 interbody spacers. 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 No hardware failure. READING PHYSICIAN: Lorena Alcaraz M.D. -[phone] 02/12/2024 23:26 [facility] National Teleradiology Program [phone] (For Medical Practitioner Use Only) Attention Patients / Veterans: If you have questions or concerns about these test results, please contact your ordering provider or primary care team. Primary Diagnostic Code: NO ALERT REQUIRED Primary Interpreting Staff: RADIOLOGY,OUTSIDE SERVICE, Staff Physician / RADIOLOGY,OUTSIDE SERVICE [place] [facility] Encounter Notes: All associated encounter notes This section contains the clinical notes associated to the Encounter. Date/Time Encounter Note(s) Provider Source Feb 28, 2024 01:31 PM PSYCHIATRY NOTE: LOCAL TITLE: PSYCHIATRY NOTE STANDARD TITLE: PSYCHIATRY NOTE DATE OF NOTE: FEB 28, 2024@13:31 ENTRY DATE: FEB 28, 2024@13:31:53 AUTHOR: RADHA HARPER EXP COSIGNER: URGENCY: STATUS: COMPLETED Length of time: 30 minutes Clinical services provided by Radha Harper MD, staff psychiatrist. Clinical services are being provided via [facility] from the [facility] to the [facility] through the [facility] Clinical Resource Hub. ID & Diagnoses: 83-year-old male with major depressive disorder (0% [place]). , father of 4 adult children. Lives alone with a cat and a lot of fish in a large fish tank. Served in [employer] for 6 yrs. 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 Psychiatric Medications: Citalopram 5 mg/day for depression History of Present Illness: He has been doing really well. He denies clinical depression (0/10, 10 being worst). Thus, he has agreed to reduce citalopram from 10 to 5 mg/day for depression. Denies active concerns except his recent rib crack (no surgery needed) after he fell down. He is recovering from this. 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 He sees his medical doctors regularly. He has several friends. He has a good relationship with his girlfriend he recently met at a adventist, who is about 15 yrs younger than him. He still visit his 's cemetery almost daily. He continues to work as a wood snow maker. He talks and sees his children, grandchildren, and great-grandchildren very often (usually once a week). He enjoys making wood toys, watching movies, doing yard work and lawn maintenance, and meeting with adventist people. Denies alcohol, drug, or gambling problems. No acute psychiatric issues noted. MENTAL STATUS EXAM: Appearance/Behavior: pleasant Speech: normal rate/rhythm Mood: euthymic Affect: mood congruent Perceptual disturbance: no visual/auditory [...] no [ ] yes Acute/recent/impending loss [ x ] no [ ] yes Recent discharge from inpatient unit [...] ] no [ x ] yes Therapeutic Pride [ ] no [ x ] yes [...] ACTIVE TABLETS BY MOUTH TWICE DAILY 3) INSULIN,ASPART,HUMAN 100 UNIT/ML INJ INJECT 80 UNITS ACTIVE SUBCUTANEOUSLY EVERY DAY DIRECTED FOR USE WITH CONTINUOUS SUBCUTANEOUS INSULIN INFUSION DEVICE 4) KETOCONAZOLE 2% CREAM APPLY A THIN LAYER TOPICALLY ACTIVE TWICE DAILY RASH APPLY TO AFFECTED AREAS ON FACE TWICE DAILY FOR 4 WEEKS, THEN NEEDED 5) KETOCONAZOLE 2% SHAMPOO SHAMPOO SMALL AMOUNT ACTIVE TOPICALLY TWICE A WEEK NEEDED APPLY FOR 8 WEEKS, THEN NEEDED 6) MULTIVIT/OPHTH AREDS2/LUTE/ZEAX CAP/TAB TAKE 1 ACTIVE CAPSULE BY MOUTH TWICE DAILY IN THE MORNING AND EVENING, WITH FOOD 7) NEEDLE 18G 1IN USE 1 NEEDLE EVERY 7 DAYS FOR ACTIVE INJECTION 8) NEEDLE 23G 1IN USE 1 NEEDLE EVERY 7 DAYS FOR ACTIVE INJECTION 9) OXYCODONE HCL 5MG TAB NOT SA TAKE ONE TABLET BY ACTIVE MOUTH EVERY 6 HOURS NEEDED FOR SEVERE PAIN 10) PREDNISONE 1MG TAB TAKE FOUR TABLETS BY MOUTH ONCE ACTIVE DAILY 11) SYRINGE 1ML LUER LOCK TIP USE 1 SYRINGE EVERY 7 DAYS ACTIVE 12) TAMSULOSIN HCL 0.4MG CAP TAKE TWO CAPSULES BY MOUTH ACTIVE AT BEDTIME 13) TOCILIZUMAB 162MG/0.9ML INJ SYR 0.9ML INJECT 162MG ACTIVE SUBCUTANEOUSLY EVERY 2 WEEKS Pending Outpatient Medications Status 1) CITALOPRAM HYDROBROMIDE TAB TAKE 5MG BY MOUTH ONCE PENDING DAILY FOR DEPRESSION AND ANXIETY 2) PREDNISONE 1MG TAB TAKE FOUR TABLETS BY MOUTH ONCE PENDING DAILY Active Non-VA Medications Status 1) Non-VA ACETAMINOPHEN [...] TAB 5MG BY MOUTH TWICE ACTIVE DAILY 25 Total Medications MEDICATION RECONCILIATION was done as [...] 10/11/2023 ALLIE CUELLO Aortic Valve Disorder (SCT [id number]) 10/09/2023 TOÑO CAI Cerebrovascular disease I67.9 04/26/2023 ALLIE CUELLO Chronic recurrent major depressive 02/01/2023 SHANTI CHEN 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 10/06/2022 ALLIE CUELLO Family history of cancer of colon Z 10/03/2022 TOÑO CAI Testicular hypofunction E29.1 07/30/2022 CUELLO,ALLIE Osteoporosis M81.0 07/20/2022 ALLIE CUELLO Major depressive [...] DE LA CRUZ MD Hypertension (SNOMED CT [id number]) I 04/26/2023 ALLIE CUELLO Spinal Stenosis * (ICD-9-CM 724.00) 02/05/2010 VESTA DE LA CRUZ MD Hyperlipidemia (SNOMED CT [id number]) 04/26/2023 ALLIE CUELLO Osteoarthritis * (ICD-9-CM 715.90) 07/02/2008 PAUL ACOSTA Lower Back Pain * (ICD-9-CM 724.2) 07/02/2008 PAUL ACOSTA Vertigo 780.4 11/28/2007 PAUL ACOSTA Diabetes mellitus type 2 (SNOMED CT 09/17/2022 ALLIE CUELLO Gastroesophageal Reflux Disorder 53 11/28/2007 PAUL ACOSTA ASSESSMENT: -Major depressive disorder: stable PLAN: -Reduce citalopram from 10 to 5 mg/day for depression (as above) -Follow-up: Return to clinic with underwriter solicitation director on 06/05 or earlier as needed /thomas/ Radha Harper MD PSYCHIATRIST, PSYCHIATRY Signed: 02/28/2024 13:40 RADHA HARPER [facility]
--- OUTSIDE RECORDS SUMMARY | 2024-06-14 13:20 | XMS_ITS | Encounter Summary ---
Author Name [facility] [place] Organization [facility] [place] Address [address] [place] [id number] Care Team Providers Care Fire Chief Name Role Phone TOÑO PETER Primary Care [...] Relationship to Policy Wen [place] MEDIC[place] SUPPLEMEN MASTER PSUED O MEDEX [facility] E Mar 19, 2004 [id number] [phone] HOLLIE SHEPHERD PATIENT [place] SUPPLEMEN MASTER MEDEX [place] E Mar 19, 2004 [id number] [phone] HOLLIE SHEPHERD PATIENT [place] SUPPLEMEN MASTER MEDEX [place] E Mar 19, 2004 [id number] [phone] HOLLIE SHEPHERD PATIENT BCBS [facility] MEDICARE SUPPLEMEN MASTER PSUED O MEDEX [place] E Mar 19, 2004 [id number] HOLLIE SHEPHERD PATIENT MEDICARE (WNR) MEDICARE (M) PART B Mar 19, 2004 PART B [id number] [phone] HOLLIE SHEPHERD PATIENT MEDICARE (WNR) MEDICARE (M) PART B Mar 19, 2004 PART B [id number] CORAHOLLIE SILVA PATIENT MEDICARE (WNR) MEDICARE (M) PART B Mar 19, 2004 PART B [id number] CORAHOLLIE SILVA ALD PATIENT MEDICARE (WNR) MEDICARE (M) PART A Feb 17, 2003 PART A [id number] [phone] CORAHOLLIE SILVA ALD PATIENT MEDICARE (WNR) MEDICARE (M) PART A Feb 17, 2003 PART A [id number] CORAHOLLIE SILVA PATIENT MEDICARE (WNR) MEDICARE (M) PART A Feb 17, 2003 PART A [id number] HOLLIE SHEPHERD PATIENT MEDICARE (WNR) MEDICARE (M) PART A Feb 17, 2003 PART A [id number] [phone] CORAHOLLIE SILVA PATIENT MEDICARE (WNR) MEDICARE (M) PART B Feb 17, 2003 PART B [id number] [phone] HOLLIE SHEPHERD PATIENT MEDICARE (WNR) MEDICARE (M) PART A Feb 17, 2003 PART A [id number] [phone] HOLLIE SHEPHERD PATIENT MEDICARE (WNR) MEDICARE (M) PART B Feb 17, 2003 PART B [id number] HOLLIE SHEPHERD PATIENT Selected Encounter This section includes the information on record at [place] for the Encounter. Date/Time Encounter Type Encounter Description Reason Provider Source Feb 12, 2024 10:00 AM OFFICE O/P EST LOW 20 MIN PRIMARY CARE/MEDICINE ICD-10-CM M06.9 Rheumatoid arthritis, unspecified JUAN LUIS PETER Mikey Encounter Template Text not used by [place] Assessments - Encounter Diagnoses This section includes the primary and secondary diagnoses documented for the Encounter. Date/Time Primary/Secondary Diagnosis Diagnosis Name Provider Source Feb 26, 2024 03:53 PM PRIMARY Rheumatoid arthritis, unspecified JACINTO PETER [facility] Feb 26, 2024 03:53 PM SECONDARY Age-related osteoporosis w/o current pathological fracture JACINTO PETER Yousif [place] [facility] [place] [facility] Plan of Treatment: Future Appointments (+ 6 months) and Future Tests (+/- 45 days) The Plan of Treatment section includes future care activities for the patient [facility] [place] [facility] This section includes future appointments and [...] 01:00 PM AMBULATORY - [place]ATRY [place] [facility] Feb 28, 2024 01:00 PM AMBULATORY - PSYCHIATRY [facility] [place] [facility] Mar 25, 2024 10:00 AM AMBULATORY - MEDICINE [facility] [place] [facility] Mar 25, 2024 10:30 AM AMBULATORY - MEDICINE [facility] [place] [facility] Apr 02, 2024 02:00 PM AMBULATORY - MEDICINE [facility] [place] [facility] Apr 04, 2024 02:00 PM AMBULATORY - MEDICINE [facility] [place] [facility] Apr 08, 2024 01:00 PM AMBULATORY - REHAB MEDICIN E [facility] [place] [facility] Apr 12, 2024 09:45 AM AMBULATORY - MEDICINE [facility] [place] [facility] Apr 16, 2024 10:00 AM AMBULATORY - REHAB MEDICIN E [facility] [place] [facility] May 02, 2024 10:00 AM AMBULATORY - REHAB MEDICIN E [facility] [place] [facility] May 08, 2024 10:00 AM AMBULATORY - REHAB MEDICIN E [facility] [place] [facility] May 29, 2024 11:30 AM AMBULATORY - MEDICINE [facility] [place] [facility] Jun 05, 2024 12:00 PM AMBULATORY [place]RY [place] [facility] Jun 05, 2024 12:00 PM AMBULATORY - PSYCHIATRY [facility] [place] [facility] Jun 17, 2024 10:30 AM AMBULATORY - MEDICINE [facility] [place] [facility] Aug 06, 2024 10:00 AM AMBULATORY - MEDICINE [place] [facility] [place] [facility] Vital Signs: All taken on the encounter date This section contains inpatient and outpatient Vital Signs collected on the date of the Encounter. Date/Time Temperature Pulse Blood Pressure Respiratory Rate SP02 Pain Height Weight Body Mass Index Source Feb 12, 2024 10:00 AM 98.4 88 124/74 16 96 0 178 30 [place] [facility] [facility] Social History: Smoking Status (Most current) [...] took place. Date/Time Current Smoking Status Comment [facility] Jun 05, 2023 11:00 AM VA-TOBACCO FORMER USER [place] [facility] [place] [facility] Tobacco Use History This section includes a history of the smoking, or tobacco-related health factors, that were collected on or before the date of the Encounter. The data comes from the [place] facility where the Encounter took place. Date/Time Smoking Status/Tobac co Use Comment Facility Jun 05, 2023 11:00 AM VA-TOBACCO QUIT 15 YRS OR MORE [facility] [place] [facility] Jun 06, 2022 01:00 PM VA-TOBACCO FORMER USER [facility] [place] [facility] Jun 06, 2022 01:00 PM VA-TOBACCO QUIT 15 YRS OR MORE [facility] [place] [facility] Jun 30, 2021 02:37 PM VA-TOBACCO FORMER USER [facility] [place] [facility] Jun 30, 2021 02:37 PM VA-TOBACCO QUIT 5 TO < 15 YRS [facility] [place] [facility] May 22, 2020 03:30 PM VA-TOBACCO NEVER USED [facility] [place] [facility] May 08, 2018 02:03 PM VA-TOBACCO FORMER USER [facility] [place] [facility] May 08, 2018 02:03 PM VA-TOBACCO QUIT 15 YRS OR MORE [facility] [place] [facility] November 10, 2017 02:33 PM QUIT TOBACCO USE > 7 YEARS AGO [facility] [place] [facility] October 21, 2016 01:55 PM QUIT TOBACCO USE > 7 YE[facility] AGO [facility] Sep 18, 2015 11:24 AM QUIT TOBACCO USE > 7 YEARS AGO stopped 50 years ago [facility] May 19, 2005 08:01 AM H[facility] May 31, 2004 01:02 PM [facility] Jun 04, 2003 07:57 AM [facility] Jun 03, 2002 01:11 PM [facility] Jun 03, 2002 01:11 PM QUIT TOBACCO USE > 7 YEARS AGO [facility] Advance Directives: All historical and current Section [...] Jun 02, 2023 ADVANCE DIRECTIVE JENNIFER QUIROS [facility] Radiology Reports: +/- 30 days of the [...] 10:52 AM SPINE LUMBOSACRAL MIN 2 VIEWS: CORABEBO R [id number] -[id number] M Exm Date: FEB 12, 2024@10:52 Req Phys: TOÑO PETER Loc: CWM/NO/PACT 3 (Req'g Loc) Img Loc: [facility]/BUILDING 1 Service: Unknown [facility] [place] [id number] (Case 32 COMPLETE) SPINE LUMBOSACRAL MIN 2 VIEWS (RAD Detailed) CPT:81364 Reason for Study: acute pain. Clinical History: Please burn him a disc. Report Status: Verified Date Reported: FEB 13, 2024 Date Verified: FEB 13, 2024 Roll Shop Supervisor E-Sig: Report: SPINE LUMBOSACRAL MIN 2 VIEWS [...] hardware failure. READING PHYSICIAN: Lorena Alcaraz M.D. -[id number] 02/12/2024 23:26 [facility] National Teleradiology Program [phone] (For Medical Practitioner Use Only) Attention Patients / Veterans: If you have questions or concerns about these test results, please contact your ordering provider or primary care team. Primary Diagnostic Code: NO ALERT REQUIRED Primary Interpreting Staff: RADIOLOGY,OUTSIDE SERVICE, Staff Physician / RADIOLOGY,OUTSIDE SERVICE [facility] Encounter Notes: All associated encounter notes This section contains the clinical notes associated to the Encounter. Date/Time Encounter Note(s) Provider Source Feb 13, 2024 01:25 PM ADDENDUM: LOCAL TITLE: Addendum STANDARD TITLE: ADDENDUM DATE OF NOTE: FEB 13, 2024@13:25:06 ENTRY DATE: FEB 13, 2024@13:25:06 AUTHOR: VIJAYA KENDALL EXP COSIGNER: URGENCY: STATUS: COMPLETED Spoke to [place] and relayed message per provider. agrees to PT consult and has already given copy of images to CC Fawad /thomas/ VIJAYA KENDALL RN REGISTERED NURSE Signed: 02/13/2024 13:25 Receipt Acknowledged By: 02/13/2024 16:52 /thomas/ Toño Peter PA-C STAFF PHYSICIAN SUPERVISOR THROWING DEPARTMENT --- Original Document --- 02/12/24 RUBY NOTE: CC/HPI/A/P: 83 year old MALE here in follow-up for; back pain, onset overnightDenies any falls or MVAs. Drove his new truck here today! Bowel and bladder habits are wnl, denies any blood in urine or stool. PSH hardware place in back years ago. Exam finds scars from remote surgery, no rashes, tender over L3-5. Considering his osteoporosis, I send him for xrays today, suggest he increase docusate one bid to two tabs bid and add a prn oxycodone (left over from wrist surgery) to his Tylenol as needed for pain. Xray today, with a disc. He will follow with me, Dr Gilman or his oil and gas field technician prn. I again advocate for him to share less of his care due to large polypharmacy, advancing age and deteriorating health. He is focused on contining as it, even when I pointedly advocate that seeing TWO ENdocrinolgists is a very bad idea. Review of systems: Patient reports no changes from [place]ual [place] [facility], in meds or any admissions. Active problems - Computerized Problem List is the source for the followin. Elevated PSA 2. Aortic Valve Disorder (SCT 6144220) TAVR 10/03/2023 [facility]. 3. Cerebrovascular disease s/p L carotid endarterectomy 4. Chronic recurrent major depressive disorder 5. Insulin pump present 6. Hypertension 7. Family history of cancer of colon Brother, rectal cancer. 8. Testicular hypofunction 9. Osteoporosis 10. Major depressive disorder 11. RA - Rheumatoid arthritis 12. History of colonic polyp One TA on 06/10/2020 colonoscopy. 13. Diverticular disease of colon 14. Adjustment disorder 15. Hemorrhoids 07/02/[address] Barrientos. 16. Polymyalgia Rheumatica 17. Microscopic Hematuria longstanding, Followed by community Urologist 18. Rosacea 19. Hypertension (SNOMED CT 77909315) 20. Spinal Stenosis * 21. Hyperlipidemia (SNOMED CT 58677891) 22. Osteoarthritis * 23. Lower Back Pain * 24. Vertigo 25. Diabetes mellitus type 2 (SNOMED CT 98862368) 26. Gastroesophageal Reflux Disorder SERVICE CONNECTED % - [...] BY MOUTH ONCE DAILY FOR MOOD 4) INSULIN,ASPART,HUMAN 100 UNIT/ML INJ INJECT 80 [...] THE MORNING AND EVENING, WITH FOOD 8) PREDNISONE 1MG TAB TAKE FOUR TABLETS BY MOUTH ONCE ACTIVE DAILY 9) TAMSULOSIN HCL 0.4MG CAP TAKE TWO CAPSULES BY MOUTH ACTIVE AT BEDTIME 10) TOCILIZUMAB 162MG/0.9ML INJ SYR 0.9ML INJECT 162MG ACTIVE SUBCUTANEOUSLY EVERY 2 WEEKS Inactive Outpatient Medications Status 1) OXYCODONE HCL 5MG/APAP 325MG TAB TAKE 1 TABLET BY MOUTH EVERY 6 HOURS NEEDED FOR PAIN Active Non-VA Medications Status 1) Non-VA ACETAMINOPHEN [...] MOUTH TWICE ACTIVE DAILY 21 Total Medications 98.4 F [36.9 C] (02/12/2024 10:00) 88 (02/12/2024 10:00) 16 (02/12/2024 10:00) 124/74 (02/12/2024 10:00) 0 (02/12/2024 10:00) 64.5 in [163.8 cm] (11/27/2023 14:00) 178 lb [80.74 kg] (02/12/2024 10:00) BMI: 30.1 Neuro: Alert and oriented times three, grossly nonfocal, nasolabial folds intact. /thomas/ Toño Peter PA-C STAFF PHYSICIAN SUPERVISOR THROWING DEPARTMENT Signed: 02/12/2024 10:45 02/13/2024 ADDENDUM STATUS: COMPLETED Please inform him that his lumbar films are fine, no fracture or other problems found and his hardware looked intact. Ask him to take the disc to his CC Rheaumatologist with images and report. I could order PT here if he likes, when his cools down in a week or two. /thomas/ Toño Peter PA-C STAFF PHYSICIAN SUPERVISOR THROWING DEPARTMENT Signed: 02/13/2024 08:18 Receipt Acknowledged By: 02/13/2024 13:25 /thomas/ VIJAYA KENDALL RN REGISTERED NURSE VIJAYA KENDALL [facility] [place] [facility] Feb 13, 2024 08:16 AM ADDENDUM: LOCAL TITLE: Addendum STANDARD TITLE: ADDENDUM DATE OF NOTE: FEB 13, 2024@08:16:37 ENTRY DATE: FEB 13, 2024@08:16:37 AUTHOR: TOÑO PETER EXP COSIGNER: URGENCY: STATUS: COMPLETED Please inform him that his lumbar films are fine, no fracture or other problems found and his hardware looked intact. Ask him to take the disc to his Rheaumatologist with images and report. I could order PT here if he likes, when his cools down in a week or two. /thomas/ Toño Peter PA-C STAFF PHYSICIAN SUPERVISOR THROWING DEPARTMENT Signed: 02/13/2024 08:18 Receipt Acknowledged By: 02/13/2024 13:25 /thomas/ VIJAYA KENDALL RN REGISTERED NURSE --- Original Document --- 02/12/24 RUBY NOTE: CC/HPI/A/P: 83 year old MALE here in follow-up for; back pain, onset overnightDenies any falls or MVAs. Drove his new truck here today! Bowel and bladder habits are wnl, denies any blood in urine or stool. PSH hardware place in back years ago. Exam finds scars from remote surgery, no rashes, tender over L3-5. Considering his osteoporosis, I send him for xrays today, suggest he increase docusate one bid to two tabs bid and add a prn oxycodone (left over from wrist surgery) to his Tylenol as needed for pain. Xray today, with a disc. He will follow with me, Dr Gilman or his oil and gas field technician prn. I again advocate for him to share less of his care due to large polypharmacy, advancing age and deteriorating health. He is focused on contining as it, even when I pointedly advocate that seeing TWO ENdocrinolgists is a very bad idea. Review of systems: Patient reports no changes from [facility]ual [facility], in meds or any admissions. Active problems - Computerized Problem List is the source for the followin. Elevated PSA 2. Aortic Valve Disorder (SCT 9743478) TAVR 10/03/2023 [facility]. 3. Cerebrovascular disease s/p L carotid endarterectomy 4. Chronic recurrent major depressive disorder 5. Insulin pump present 6. Hypertension 7. Family history of cancer of colon Brother, rectal cancer. 8. Testicular hypofunction 9. Osteoporosis 10. Major depressive disorder 11. RA - Rheumatoid arthritis 12. History of colonic polyp One TA on 06/10/2020 colonoscopy. 13. Diverticular disease of colon 14. Adjustment disorder 15. Hemorrhoids 07/02/[address] Barrientos. 16. Polymyalgia Rheumatica 17. Microscopic Hematuria longstanding, Followed by community Urologist 18. Rosacea 19. Hypertension (SNOMED CT 83028957) 20. Spinal Stenosis * 21. Hyperlipidemia (SNOMED CT 86929759) 22. Osteoarthritis * 23. Lower Back Pain * 24. Vertigo 25. Diabetes mellitus type 2 (SNOMED CT 92680507) 26. Gastroesophageal Reflux Disorder SERVICE CONNECTED % - [...] BY MOUTH ONCE DAILY FOR MOOD 4) INSULIN,ASPART,HUMAN 100 UNIT/ML INJ INJECT 80 [...] THE MORNING AND EVENING, WITH FOOD 8) PREDNISONE 1MG TAB TAKE FOUR TABLETS BY MOUTH ONCE ACTIVE DAILY 9) TAMSULOSIN HCL 0.4MG CAP TAKE TWO CAPSULES BY MOUTH ACTIVE AT BEDTIME 10) TOCILIZUMAB 162MG/0.9ML INJ SYR 0.9ML INJECT 162MG ACTIVE SUBCUTANEOUSLY EVERY 2 WEEKS Inactive Outpatient Medications Status 1) OXYCODONE HCL 5MG/APAP 325MG TAB TAKE 1 TABLET BY MOUTH EVERY 6 HOURS NEEDED FOR PAIN Active Non-VA Medications Status 1) Non-VA ACETAMINOPHEN [...] MOUTH TWICE ACTIVE DAILY 21 Total Medications 98.4 F [36.9 C] (02/12/2024 10:00) 88 (02/12/2024 10:00) 16 (02/12/2024 10:00) 124/74 (02/12/2024 10:00) 0 (02/12/2024 10:00) 64.5 in [163.8 cm] (11/27/2023 14:00) 178 lb [80.74 kg] (02/12/2024 10:00) BMI: 30.1 Neuro: Alert and oriented times three, grossly nonfocal, nasolabial folds intact. /thomas/ Toño Peter PA-C STAFF PHYSICIAN SUPERVISOR THROWING DEPARTMENT Signed: 02/12/2024 10:45 02/13/2024 ADDENDUM STATUS: UNSIGNED You may not VIEW this UNSIGNED Addendum. TOÑO PETER [place] [facility] [place] [facility] Feb 12, 2024 10:36 AM PHYSICIAN SUPERVISOR THROWING DEPARTMENT NOTE: LOCAL TITLE: RUBY NOTE STANDARD TITLE: PHYSICIAN SUPERVISOR THROWING DEPARTMENT NOTE DATE OF NOTE: FEB 12, 2024@10:36 ENTRY DATE: FEB 12, 2024@10:36:49 AUTHOR: TOÑO PETER EXP COSIGNER: URGENCY: STATUS: COMPLETED RUBY NOTE Has ADDENDA CC/HPI/A/P: 83 year old MALE here in follow-up for; back pain, onset overnightDenies any falls or MVAs. Drove his new truck here today! Bowel and bladder habits are wnl, denies any blood in urine or stool. PSH hardware place in back years ago. Exam finds scars from remote surgery, no rashes, tender over L3-5. Considering his osteoporosis, I send him for xrays today, suggest he increase docusate one bid to two tabs bid and add a prn oxycodone (left over from wrist surgery) to his Tylenol as needed for pain. Xray today, with a disc. He will follow with me, Dr Gilman or his oil and gas field technician prn. I again advocate for him to share less of his care due to large polypharmacy, advancing age and deteriorating health. He is focused on contining as it, even when I pointedly advocate that seeing TWO ENdocrinolgists is a very bad idea. Review of systems: Patient reports no changes from Usual [facility] Health/[facility], in meds or any admissions. Active problems - Computerized Problem List is the source for the followin. Elevated PSA 2. Aortic Valve Disorder (SCT 4720164) TAVR 10/03/2023 [facility]. 3. Cerebrovascular disease s/p L carotid endarterectomy 4. Chronic recurrent major depressive disorder 5. Insulin pump present 6. Hypertension 7. Family history of cancer of colon Brother, rectal cancer. 8. Testicular hypofunction 9. Osteoporosis 10. Major depressive disorder 11. RA - Rheumatoid arthritis 12. History of colonic polyp One TA on 06/10/2020 colonoscopy. 13. Diverticular disease of colon 14. Adjustment disorder 15. Hemorrhoids 07/02/[address] Barrientos. 16. Polymyalgia Rheumatica 17. Microscopic Hematuria longstanding, Followed by community Urologist 18. Rosacea 19. Hypertension (SNOMED CT 21964262) 20. Spinal Stenosis * 21. Hyperlipidemia (SNOMED CT 45960022) 22. Osteoarthritis * 23. Lower Back Pain * 24. Vertigo 25. Diabetes mellitus type 2 (SNOMED CT 85484548) 26. Gastroesophageal Reflux Disorder SERVICE CONNECTED % - [...] BY MOUTH ONCE DAILY FOR MOOD 4) INSULIN,ASPART,HUMAN 100 UNIT/ML INJ INJECT 80 [...] THE MORNING AND EVENING, WITH FOOD 8) PREDNISONE 1MG TAB TAKE FOUR TABLETS BY MOUTH ONCE ACTIVE DAILY 9) TAMSULOSIN HCL 0.4MG CAP TAKE TWO CAPSULES BY MOUTH ACTIVE AT BEDTIME 10) TOCILIZUMAB 162MG/0.9ML INJ SYR 0.9ML INJECT 162MG ACTIVE SUBCUTANEOUSLY EVERY 2 WEEKS Inactive Outpatient Medications Status 1) OXYCODONE HCL 5MG/APAP 325MG TAB TAKE 1 TABLET BY MOUTH EVERY 6 HOURS NEEDED FOR PAIN Active Non-VA Medications Status 1) Non-VA ACETAMINOPHEN [...] MOUTH TWICE ACTIVE DAILY 21 Total Medications 98.4 F [36.9 C] (02/12/2024 10:00) 88 (02/12/2024 10:00) 16 (02/12/2024 10:00) 124/74 (02/12/2024 10:00) 0 (02/12/2024 10:00) 64.5 in [163.8 cm] (11/27/2023 14:00) 178 lb [80.74 kg] (02/12/2024 10:00) BMI: 30.1 Neuro: Alert and oriented times three, grossly nonfocal, nasolabial folds intact. /thomas/ Toño Peter PA-C STAFF PHYSICIAN SUPERVISOR THROWING DEPARTMENT Signed: 02/12/2024 10:45 02/13/2024 ADDENDUM STATUS: COMPLETED Please inform him that his lumbar films are fine, no fracture or other problems found and his hardware looked intact. Ask him to take the disc to his CC Rheaumatologist with images and report. I could order PT here if he likes, when his cools down in a week or two. /thomas/ Toño Peter PA-C STAFF PHYSICIAN SUPERVISOR THROWING DEPARTMENT Signed: 02/13/2024 08:18 Receipt Acknowledged By: 02/13/2024 13:25 /thomas/ VIJAYA KENDALL RN REGISTERED NURSE 02/13/2024 ADDENDUM STATUS: COMPLETED Spoke to [place] and relayed message per provider. agrees to PT consult and has already given copy of images to CC Rheum /thomas/ VIJAYA KENDALL RN REGISTERED NURSE Signed: 02/13/2024 13:25 Receipt Acknowledged By: 02/13/2024 16:52 /benny Peter PA-C STAFF PHYSICIAN SUPERVISOR THROWING DEPARTMENT 02/14/2024 ADDENDUM STATUS: COMPLETED faxed rx for azithromycin 500mg one tab my mouth prior to procedure from Dr Tanya GILMAN, LOCAL pcp, DATED 01/29. nO RECORDS. I do not reorder. /thomas/ Toño Peter PA-C STAFF PHYSICIAN SUPERVISOR THROWING DEPARTMENT Signed: 02/14/2024 14:50 TOÑO PETER [facility] Feb 12, 2024 10:02 AM PREVENTIVE MEDICINE NURSING NOTE: LOCAL TITLE: CLINICAL REMINDERS/NURSING STANDARD TITLE: PREVENTIVE MEDICINE NURSING NOTE DATE OF NOTE: FEB 12, 2024@10:02 ENTRY DATE: FEB 12, 2024@10:02:38 AUTHOR: ODILON SIMPSON EXP COSIGNER: URGENCY: STATUS: COMPLETED Suicide Screen: C-SSRS Screening [place] Suicide Severity Rating Scale (C-SSRS) screener 1. Over the past month, have you wished you were or wished you could go to sleep and not wake up? No 2. Over the past month, have you had any actual thoughts of killing yourself? No 3. Over the past month, have you been thinking about how you might do this? Response not required due to responses to other questions. 4. Over the past month, have you had these thoughts and had some intention of acting on them? Response not required due to responses to other questions. 5. Over the past month, have you started to work out or worked out the details of how to kill yourself? Response not required due to responses to other questions. 6. If yes, at any time in the past month did you intend to carry out this plan? Response not required due to responses to other questions. 7. In your lifetime, have you ever done anything, started to do anything, or prepared to do anything to end your life (for example, collected pills, obtained a gun, gave away valuables, went to the roof but didn't jump)? No 8. If YES, was this within the past 3 months? Response not required due to responses to other questions. Falls & Incontinence Screen: Falls Screen: 4. No falls within the past year. Incontinence Screen No incontinence. /thomas/ ODILON SIMPSON LPN Signed: 02/12/2024 10:04 ODILON SIMPSON [facility]
--- OUTSIDE RECORDS SUMMARY | 2024-06-14 13:20 | XMS_ITS ---
Author Name [facility] Organization [facility] [place] Address [address] [place] [id number] Care Team Providers Care Panel Lay Up Worker Name Role Phone TOÑO CAI Primary Care [...] O MEDEX BRONZ E Mar 19, 2004 [id number] HOLLIE SHEPHERD PATIENT BCBS [place] MEDICARE SUPPLEMEN MASTER MEDEX BRONZ E Mar 19, 2004 [id number] [phone] HOLLIE SHEPHERD PATIENT [place] SUPPLEMEN MASTER MEDEX [facility]ON[facility] E Mar 19, 2004 [id number] [phone] HOLLIE SHEPHERD PATIENT BCBS [facility] MEDICARE SUPPLEMEN MASTER PSUED O MEDEX BRONZ E Mar 19, 2004 [id number] HOLLIE SHEPHERD PATIENT MEDICARE (WNR) MEDICARE (M) PART B Mar 19, 2004 PART B [id number] HOLLIE SHEPHERD PATIENT MEDICARE (WNR) MEDICARE (M) PART B Mar 19, 2004 PART B [id number] HOLLIE SHEPHERD ALD PATIENT MEDICARE (WNR) MEDICARE (M) PART B Mar 19, 2004 PART B [id number] HOLLIE SHEPHERD ALD PATIENT MEDICARE (WNR) MEDICARE (M) PART A Feb 17, 2003 PART A [id number] HOLLIE SHEPHERD ALD PATIENT MEDICARE (WNR) MEDICARE (M) PART A Feb 17, 2003 PART A [id number] HOLLIE SHEPHERD ALD PATIENT MEDICARE (WNR) MEDICARE (M) PART A Feb 17, 2003 PART A [id number] HOLLIE SHEPHERD PATIENT MEDICARE (WNR) MEDICARE (M) PART A Feb 17, 2003 PART A [id number] HOLLIE SHEPHERD PATIENT MEDICARE (WNR) MEDICARE (M) PART B Feb 17, 2003 PART B [id number] [phone] HOLLIE SHEPHERD PATIENT MEDICARE (WNR) MEDICARE (M) PART A Feb 17, 2003 PART A [id number] HOLLIE SHEPHERD PATIENT MEDICARE (WNR) MEDICARE (M) PART B Feb 17, 2003 PART B [id number] HOLLIE SHEPHERD PATIENT Selected Encounter This section includes the information on record at MD for the Encounter. Date/Time Encounter Type Encounter Description Reason Pro vider Source Jan 22, 2024 12:00 PM Outpatient Encounter COMMUNITY CARE CONSULT IHE Encounter Template Text not used by MD Plan of Treatment: Future Appointments (+ 6 months) and Future Tests (+/- 45 days) The Plan of Treatment section includes future care activities for the patient from all MD treatmentfacilities. This section includes future appointments and [...] MEDICINE [facility] [place] [facility] Feb 28, 2024 01:00 PM AMBULATORY - [place] [place] [facility] Feb 28, 2024 01:00 PM AMBULATORY - PSYCHIATRY [facility] [place] [facility] Mar 25, 2024 10:00 AM AMBULATORY - MEDICINE [facility] [place] [facility] Mar 25, 2024 10:30 AM AMBULATORY - MEDICINE [facility] [place] [facility] Apr 02, 2024 02:00 PM AMBULATORY - MEDICINE [facility] [place] [facility] Apr 04, 2024 02:00 PM AMBULATORY - MEDICINE [facility] [place] [facility] Apr 08, 2024 01:00 PM AMBULATORY - REHAB MEDICIN E [facility] [place] [facility] Apr 12, 2024 09:45 AM AMBULATORY - MEDICINE [facility] [place] [facility] Apr 16, 2024 10:00 AM AMBULATORY - REHAB MEDICIN E [facility] [place] [facility] May 02, 2024 10:00 AM AMBULATORY - REHAB MEDICIN E [facility] [place] [facility] May 08, 2024 10:00 AM AMBULATORY - REHAB MEDICIN E [facility] [place] [facility] May 29, 2024 11:30 AM AMBULATORY - MEDICINE [facility] [place] [facility] Jun 05, 2024 12:00 PM AMBULATORY [place] [place] [facility] Jun 05, 2024 12:00 PM AMBULATORY - PSYCHIATRY [facility] [place] [facility] Jun 17, 2024 10:30 AM AMBULATORY - MEDICINE [facility] [place] [facility] Social History: Smoking Status (Most current) [...] AM VA-TOBACCO [facility] Tobacco Use History This section includes a history of the smoking, or tobacco-related health factors, that were collected on or before the date of the Encounter. The data comes from the MD facility where the Encounter took place. Date/Time Smoking Status/Tobac co Use Comment Facility Jun 05, 2023 11:00 AM VA-TOBACCO QUIT 15 YRS OR MORE [facility] [place] [facility] Jun 06, 2022 01:00 PM VA-TOBACCO FORMER USER [facility] [place] [facility] Jun 06, 2022 01:00 PM VA-TOBACCO QUIT 15 YRS OR MORE [facility] [place] [facility] Jun 30, 2021 02:37 PM VA-TOBACCO FORMER USER [facility] [place] [facility] Jun 30, 2021 02:37 PM VA-TOBACCO QUIT 5 TO < 15 YRS [facility] [place] [facility] May 22, 2020 03:30 PM VA-TOBACCO NEVER USED MD [facility] [place] [facility] May 08, 2018 02:03 PM VA-TOBACCO FORMER USER [facility] [place] [facility] May 08, 2018 02:03 PM VA-TOBACCO QUIT 15 YRS OR MORE [facility] [place] [facility] November 10, 2017 02:33 PM QUIT TOBACCO USE > 7 YEARS AGO [facility] [place] [facility] October 21, 2016 01:55 PM QUIT TOBACCO USE > 7 YEARS AGO [facility] [place] [facility] Sep 18, 2015 11:24 AM QUIT TOBACCO USE > 7 YEARS AGO stopped 50 years ago [facility] [place] [facility] May 19, 2005 08:01 AM HISTORY OF SMOKING [facility] [place] [facility] May 31, 2004 01:02 PM HISTORY OF SMOKING [facility] [place] [facility] Jun 04, 2003 07:57 AM HISTORY OF SMOKING [facility] [place] [facility] Jun 03, 2002 01:11 PM HISTORY OF SMOKING [facility] [place] [facility] Jun 03, 2002 01:11 PM QUIT TOBACCO USE > 7 YEARS AGO [facility] [place] [facility] Advance Directives: All historical and current [...] the Encounter. The data comes from all MD treatment facilities. Date/Time Radiology Report Provider Source Feb 12, 2024 10:52 AM SPINE LUMBOSACRAL MIN 2 VIEWS: BEBO SHEPHERD [id number] -[id number] M Exm Date: FEB 12, 2024@10:52 Req Phys: TOÑO CAI Loc: CWM/NO/PACT 3 (Req'g Loc) Img Loc: [facility] 1 Service: [place] [address] (Case 32 COMPLETE) SPINE LUMBOSACRAL MIN 2 VIEWS (RAD Detailed) CPT:47624 Reason for Study: acute pain. Clinical History: Please burn him a disc. Report Status: Verified Date Reported: FEB 13, 2024 Date Verified: FEB 13, 2024 Cereal Chemist E-Sig: Report: SPINE LUMBOSACRAL MIN 2 VIEWS HISTORY: acute pain. COMPARISON: None. TECHNIQUE: 3 view(s) of the lumbar spine, submitted to the MD National Teleradiology Program (NTP) for interpretation. Impression: Normal lumbar lordosis is maintained. Vertebral bodies maintain normal heights. There is extensive anterior and posterior fusion with posterior transpedicular screws and rods and L2-L3 through L5-S1 interbody spacers. 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 No hardware failure. READING PHYSICIAN: Lorena Alcaraz M.D. -[id number] 02/12/2024:26 [facility] National Teleradiology Program [phone] (For Medical Practitioner Use Only) Attention Patients / Veterans: If you have questions or concerns about these test results, please contact your ordering provider or primary care team. Primary Diagnostic Code: NO ALERT REQUIRED Primary Interpreting Staff: RADIOLOGY,OUTSIDE SERVICE, Staff Physician / RADIOLOGY,OUTSIDE SERVICE [facility] Encounter Notes: All associated encounter notes This section contains the clinical notes associated to the Encounter. Date/Time Encounter Note(s) Provider Source Jan 22, 2024 12:00 PM NONVA CONSULT: LOCAL TITLE: COMMUNITY CARE-CONSULT RESULT NOTE STANDARD TITLE: NONVA CONSULT DATE OF NOTE: JAN 22, 2024@12:00 ENTRY DATE: FEB 06, 2024@15:27:19 AUTHOR: CARLA FLOERS EXP COSIGNER: URGENCY: STATUS: COMPLETED VistA Imaging - Scanned Document SCANNED DOCUMENT SIGNATURE NOT REQUIRED Electronically Filed: 02/06/2024 by: CARLA MCDOWELL [facility]
--- OUTSIDE RECORDS SUMMARY | 2024-06-14 13:21 | XMS_ITS | Encounter Summary ---
Author Name [facility] of [place] Organization [place] Address [address] [place] [address] Care Team Providers Care Machine Turner Name Role Phone TOÑO PETER Primary Care [...] DE MEDICARE SUPPLEMEN MASTER PSUED O MEDEX [facility] E Mar 19, 2004 [id number] HOLLIE SHEPHERD PATIENT BCBS [place] MEDICARE SUPPLEMEN MASTER MEDEX BRONZ E Mar 19, 2004 [id number] HOLLIE SHEPHERD PATIENT [place] SUPPLEMEN MASTER MEDEX BRONZ E Mar 19, 2004 [id number] HOLLEI SHEPHERD PATIENT BCBS [facility] MEDICARE SUPPLEMEN MASTER PSUED O MEDEX BRONZ E Mar 19, 2004 [id number] HOLLIE SHEPHERD PATIENT MEDICARE (WNR) MEDICARE (M) PART B Mar 19, 2004 PART B [id number] [phone] HOLLIE SHEPHERD PATIENT MEDICARE (WNR) MEDICARE (M) PART B Mar 19, 2004 PART B [id number] HOLLIE SHEPHERD PATIENT MEDICARE (WNR) MEDICARE (M) PART B Mar 19, 2004 PART B [id number] [phone] HOLLIE SHEPHERD PATIENT MEDICARE (WNR) MEDICARE (M) PART A Feb 17, 2003 PART A [id number] CORAHOLLIE SILVA ALD PATIENT MEDICARE (WNR) MEDICARE (M) PART A Feb 17, 2003 PART A [id number] HOLLIE SHEPHERD PATIENT MEDICARE (WNR) MEDICARE (M) PART A Feb 17, 2003 PART A [id number] HOLLIE SHEPHERD PATIENT MEDICARE (WNR) MEDICARE (M) PART A Feb 17, 2003 PART A [id number] [phone] HOLLIE SHEPHERD PATIENT MEDICARE (WNR) MEDICARE (M) PART B Feb 17, 2003 PART B [id number] [phone] HOLLIE SHEPHERD PATIENT MEDICARE (WNR) MEDICARE (M) PART A Feb 17, 2003 PART A [id number] [phone] HOLLIE SHEPHERD PATIENT MEDICARE (WNR) MEDICARE (M) PART B Feb 17, 2003 PART B [id number] HOLLIE SHEPHERD PATIENT Selected Encounter This section includes the information on record at [place] for the Encounter. Date/Time Encounter Type Encounter Description Reason Provider Source Apr 02, 2024 02:00 PM OFFICE O/P EST LOW 20 MIN PRIMARY CARE/MEDICINE ICD-10-CM M75.51 Bursitis of right shoulder VANWAGNER,WILL MAY F IHE Encounter Template Text not used by VA Assessments - Encounter Diagnoses This section includes the primary and secondary diagnoses documented for the Encounter. Date/Time Primary/Secondary Diagnosis Diagnosis Name Provider Source Apr 13, 2024 09:27 AM PRIMARY Bursitis of right shoulder VANWAGNER,WILL MAY F [facility] [place] [facility] Plan of Treatment: Future Appointments (+ 6 months) and Future Tests (+/- 45 days) The Plan of Treatment section includes future care activities for the patient [facility] This section includes future appointments and future orders which are active, pending or scheduled. Future Appointments This section includes appointments that were scheduled to occur 6 months from the date of the Encounter, up to a maximum of 20 appointments. The data comes from all [place] treatment facilities. Appointment Date/Time Appointment Type Appointme nt Facility Name Apr 04, 2024 02:00 PM AMBULATORY - MEDICINE [facility] [place] [facility] Apr 08, 2024 01:00 PM AMBULATORY - REHAB MEDICIN E [facility] [place] [facility] Apr 12, 2024 09:45 AM AMBULATORY - MEDICINE [facility] [place] [facility] Apr 16, 2024 10:00 AM AMBULATORY - REHAB MEDICIN E [facility] [place] [facility] May 02, 2024 10:00 AM AMBULATORY - REHAB MEDICIN E [facility] [place] [facility] May 08, 2024 10:00 AM AMBULATORY - REHAB MEDICIN E [facility] [place] [facility] May 29, 2024 11:30 AM AMBULATORY - MEDICINE CO [facility] [place] [facility] Jun 05, 2024 12:00 PM AMBULATORY [place] [facility] Jun 05, 2024 12:00 PM AMBULATORY - PSYCHIATRY [facility] [place] [facility] Jun 17, 2024 10:30 AM AMBULATORY - MEDICINE [facility] [place] [facility] Aug 06, 2024 10:00 AM AMBULATORY - MEDICINE [facility] [place] [facility] Vital Signs: All taken on the encounter date This section contains inpatient and outpatient Vital Signs collected on the date of the Encounter. Date/Time Temperature Pulse Blood Pressure Respiratory Rate SP02 Pain Height Weight Body Mass Index Source Apr 02, 2024 02:02 PM 98.4 83 130/82 16 97 8 176 30 [facility] [place] [facility] Social History: Smoking Status (Most current) and Tobacco Use (All prior to encounter date) This section includes the most current, and the historical, smoking and tobacco- related health factors from the VA facility where the Encounter took place. Current Smoking Status This section includes the most current smoking, or tobacco-related health factor, from the CO facility where the Encounter took place. Date/Time Current Smoking Status Comment [facility] Jun 05, 2023 11:00 AM VA-TOBACCO FORMER USER [facility] [place] [facility] Tobacco Use History This section includes a history of the smoking, or tobacco-related health factors, that were collected on or before the date of the Encounter. The data comes from the [place] facility where the Encounter took place. Date/Time Smoking Status/Tobac co Use Comment Facility Jun 05, 2023 11:00 AM VA-TOBACCO QUIT 15 YRS OR MORE [facility] [place] [facility] Jun 06, 2022 01:00 PM VA-TOBACCO FORMER USER [facility] [place] [facility] Jun 06, 2022 01:00 PM VA-TOBACCO QUIT 15 YRS OR MORE [facility] [place] [facility] Jun 30, 2021 02:37 PM VA-TOBACCO FORMER USER [facility] [place] [facility] Jun 30, 2021 02:37 PM VA-TOBACCO QUIT 5 TO < 15 YRS [facility] [place] [facility] May 22, 2020 03:30 PM VA-TOBACCO NEVER USED [facility] [place] [facility] May 08, 2018 02:03 PM VA-TOBACCO FORMER USER [facility] [place] [facility] May 08, 2018 02:03 PM VA-TOBACCO QUIT 15 YRS OR MORE [facility] [place] [facility] November 10, 2017 02:33 PM QUIT TOBACCO USE > 7 YEARS AGO [facility] [place] [facility] October 21, 2016 01:55 PM QUIT TOBACCO USE > 7 YEARS AGO [facility] [place] [facility] Sep 18, 2015 11:24 AM QUIT TOBACCO USE > 7 YEARS AGO stopped 50 years ago [facility] [place] [facility] May 19, 2005 08:01 AM HISTORY OF SMOKING [facility] [place] [facility] May 31, 2004 01:02 PM HISTORY OF SMOKING [facility] [place] [facility] Jun 04, 2003 07:57 AM HISTORY OF SMOKING [facility] [place] [facility] Jun 03, 2002 01:11 PM [facility] Jun 03, 2002 01:11 PM QUIT TOBACCO USE > 7 YEARS AGO [facility] Advance Directives: All historical and current Section Date Range: From patient's date of to the date document was created. This section includes ALL of a patient's completed or amended CO Advance and Rescinded Directives. The entries below indicate that a directive exists for the patient, but an actual copy is not included with this document. The data comes from all [place] facilities. Date Advance Directives Provider Source Jun 02, 2023 ADVANCE [facility]IVE [facility] Radiology Reports: +/- 30 days of [...] the Encounter. The data comes from all [place] treatment facilities. Date/Time Radiology Report Provider Source Apr 02, 2024 02:24 PM SHOULDER,COMPLETE(RIGHT): BEBO SHEPHERD [id number] -[id number] M Ex Date: APR 02, 2024@14:24 Req Phys: TOÑO PETER Loc: CWM/NO/PACT 3 (Req[place]g Loc[place] [facility] [place] [facility] 1 Service: [place] [address] (Case 50 COMPLETE) SHOULDER,COMPLETE(RIGHT) (RAD Detailed) CPT:23208 Reason for Study: lateral pain after a fall last week. Clinical History: Report Status: Verified Date Reported: APR 02, 2024 Date Verified: APR 02, 2024 Ecd E-Sig:/ES/NAPOLEON ELLIOTT JR Report: Study: AP internally [...] Primary Interpreting Staff: NAPOLEON ELLIOTT JR, Radiologist (Ecd) /NAPOLEON SCHMITZ JR [facility] Encounter Notes: All associated encounter notes This section contains the clinical notes associated to the Encounter. Date/Time Encounter Note(s) Provider Source Apr 02, 2024 03:36 PM ADDENDUM: LOCAL TITLE: Addendum STANDARD TITLE: ADDENDUM DATE OF NOTE: APR 02, 2024@15:36:47 ENTRY DATE: APR 02, 2024@15:36:48 AUTHOR: TOÑO PETER COSIGNER: URGENCY: STATUS: COMPLETED Please inform him that xrays does NOT find a fracture. DJD is found, PT consult entered. /thomas/ Toño Peter PA-C STAFF PHYSICIAN PROSTHETIC LAB TECHNICIAN Signed: 04/02/2024 15:37 Receipt Acknowledged By: 04/02/2024 15:41 /thomas/ VIJAYA KENDALL RN REGISTERED NURSE --- Original Document --- 04/02/24 RUBY NOTE: CC/HPI/A/P: 84 year old MALE here in follow-up for; right shoulder pain, onset in a fall out of bed, reaching for his ringing phone 4 days ago. Denies seizure, head injury or LOC My neck is fine too reports a right shoulder rotator cuff repair decades ago, no trouble since. exam finds him tender at humerus, proximo=laterally. Xrays today. If no fracture PT consult to prevent adhesive capsulitis. Review of systems: Patient reports no changes from [facility], in meds or any admissions. Active problems - Computerized Problem List is the source for the followin. Elevated PSA 2. 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 3. Cerebrovascular disease s/p L carotid endarterectomy [...] Urologist 18. Rosacea 19. Hypertension (SNOMED CT 46087478) 20. Spinal Stenosis * 21. Hyperlipidemia (SNOMED CT 13585089) 22. Osteoarthritis * 23. Lower Back Pain * 24. Vertigo 25. Diabetes mellitus type 2 (SNOMED CT 28938343) 26. Gastroesophageal Reflux Disorder SERVICE CONNECTED % [...] APPLY FOR 8 WEEKS, THEN NEEDED 7) LEFLUNOMIDE 10MG TAB TAKE ONE TABLET BY MOUTH ONCE ACTIVE DAILY FOR 14 DAYS, THEN TAKE TWO TABLETS ONCE DAILY 8) PREDNISONE 1MG TAB TAKE FOUR TABLETS BY MOUTH ONCE ACTIVE DAILY 9) TAMSULOSIN HCL 0.4MG CAP TAKE TWO CAPSULES BY MOUTH ACTIVE AT BEDTIME 10) TOCILIZUMAB 162MG/0.9ML INJ SYR 0.9ML INJECT 162MG ACTIVE SUBCUTANEOUSLY EVERY 2 WEEKS Inactive Outpatient Medications Status 1) MULTIVIT/OPHTH AREDS2/LUTE/ZEAX CAP/TAB TAKE 1 CAPSULE BY MOUTH TWICE DAILY IN THE MORNING AND EVENING, WITH FOOD 2) OXYCODONE HCL 5MG TAB NOT SA TAKE ONE TABLET BY MOUTH EVERY 6 HOURS NEEDED FOR SEVERE PAIN Active Non-VA Medications Status 1) Non-VA [...] TAB 5MG BY MOUTH TWICE ACTIVE DAILY 22 Total Medications 98.4 F [36.9 C] (04/02/2024 14:02) 83 (04/02/2024 14:02) 16 (04/02/2024 14:02) 130/82 (04/02/2024 14:02) 8 (04/02/2024 14:02) 64.5 in [163.8 cm] (11/27/2023 14:00) 176 lb [79.83 kg] (04/02/2024 14:02) BMI: 29.8 Neuro: Alert and oriented times three, grossly nonfocal, nasolabial folds intact. /thomas/ Toño Peter PA-C STAFF PHYSICIAN PROSTHETIC LAB TECHNICIAN Signed: 04/02/2024 14:22 TOÑO PETER [facility] [place] [facility] Apr 02, 2024 02:19 PM PHYSICIAN PROSTHETIC LAB TECHNICIAN NOTE: LOCAL TITLE: RUBY NOTE STANDARD TITLE: PHYSICIAN PROSTHETIC LAB TECHNICIAN NOTE DATE OF NOTE: APR 02, 2024@14:19 ENTRY DATE: APR 02, 2024@14:19:18 AUTHOR: TOÑO PETER EXP COSIGNER: URGENCY: STATUS: COMPLETED RUBY NOTE Has ADDENDA CC/HPI/A/P: 84 year old MALE here in follow-up for; right shoulder pain, onset in a fall out of bed, reaching for his ringing phone 4 days ago. Denies seizure, head injury or LOC My neck is fine too reports a right shoulder rotator cuff repair decades ago, no trouble since. exam finds him tender at humerus, proximo=laterally. Xrays today. If no fracture PT consult to prevent adhesive capsulitis. Review of systems: Patient reports no changes from [facility], in meds or any admissions. Active problems - Computerized Problem List is the source for the followin. Elevated PSA 2. Aortic Valve Disorder (SCT 0730506) TAVR 10/03/2023 [facility]. 3. Cerebrovascular disease s/p L carotid endarterectomy [...] Urologist 18. Rosacea 19. Hypertension (SNOMED CT 78297817) 20. Spinal Stenosis * 21. Hyperlipidemia (SNOMED CT 61129684) 22. Osteoarthritis * 23. Lower Back Pain * 24. Vertigo 25. Diabetes mellitus type 2 (SNOMED CT 45097729) 26. Gastroesophageal Reflux Disorder SERVICE CONNECTED % [...] APPLY FOR 8 WEEKS, THEN NEEDED 7) LEFLUNOMIDE 10MG TAB TAKE ONE TABLET BY MOUTH ONCE ACTIVE DAILY FOR 14 DAYS, THEN TAKE TWO TABLETS ONCE DAILY 8) PREDNISONE 1MG TAB TAKE FOUR TABLETS BY MOUTH ONCE ACTIVE DAILY 9) TAMSULOSIN HCL 0.4MG CAP TAKE TWO CAPSULES BY MOUTH ACTIVE AT BEDTIME 10) TOCILIZUMAB 162MG/0.9ML INJ SYR 0.9ML INJECT 162MG ACTIVE SUBCUTANEOUSLY EVERY 2 WEEKS Inactive Outpatient Medications Status 1) MULTIVIT/OPHTH AREDS2/LUTE/ZEAX CAP/TAB TAKE 1 CAPSULE BY MOUTH TWICE DAILY IN THE MORNING AND EVENING, WITH FOOD 2) OXYCODONE HCL 5MG TAB NOT SA TAKE ONE TABLET BY MOUTH EVERY 6 HOURS NEEDED FOR SEVERE PAIN Active Non-VA Medications Status 1) Non-VA [...] TAB 5MG BY MOUTH TWICE ACTIVE DAILY 22 Total Medications 98.4 F [36.9 C] (04/02/2024 14:02) 83 (04/02/2024 14:02) 16 (04/02/2024 14:02) 130/82 (04/02/2024 14:02) 8 (04/02/2024 14:02) 64.5 in [163.8 cm] (11/27/2023 14:00) 176 lb [79.83 kg] (04/02/2024 14:02) BMI: 29.8 Neuro: Alert and oriented times three, grossly nonfocal, nasolabial folds intact. /thomas/ Toño Peter PA-C STAFF PHYSICIAN PROSTHETIC LAB TECHNICIAN Signed: 04/02/2024 14:22 04/02/2024 ADDENDUM STATUS: COMPLETED Please inform him that xrays does NOT find a fracture. DJD is found, PT consult entered. /thomas/ Toño Peter PA-C STAFF PHYSICIAN PROSTHETIC LAB TECHNICIAN Signed: 04/02/2024 15:37 Receipt Acknowledged By: 04/02/2024 15:41 /thomas/ VIJAYA KENDALL RN REGISTERED NURSE 04/02/2024 ADDENDUM STATUS: COMPLETED Spoke to [place] and relayed message per provider. understood and agreed to plan. /thomas/ VIJAYA KENDALL RN REGISTERED NURSE Signed: 04/02/2024 15:44 TOÑO PETER [facility] Apr 02, 2024 02:06 PM PREVENTIVE MEDICINE NURSING NOTE: LOCAL TITLE: CLINICAL REMINDERS/NURSING STANDARD TITLE: PREVENTIVE MEDICINE NURSING NOTE DATE OF NOTE: APR 02, 2024@14:06 ENTRY DATE: APR 02, 2024@14:06:16 AUTHOR: ODILON SIMPSON EXP COSIGNER: URGENCY: STATUS: COMPLETED Influenza Immunization: The patient has received the seasonal influenza vaccine for the current season at another location. Documented: INFLUENZA, UNSPECIFIED FORMULATION Historical Date Administered: Mar 26, 2024 Series: Booster Outside Location: Outside Healthcare Provider Information Source: FROM OTHER PROVIDER /thomas/ ODILON SIMPSON LPN Signed: 04/02/2024 14:07 ODILON SIMPSON [facility]
--- OUTSIDE RECORDS SUMMARY | 2024-06-14 13:21 | XMS_ITS | Encounter Summary ---
Author Name [facility] [place] Address [address] [place] [address] Care Team Providers Care Umbrella Repairer Name Role Phone TOÑO CAI Primary Care [...] Policy Wen's Name Patient's Relationship to Policy Ewn [place] SUPPLEMEN MASTER PSUED O MEDEX BRONZ E Mar 19, 2004 [id number] [phone] HOLLIE SHEPHERD PATIENT [place] SUPPLEMEN MASTER MEDEX BRONZ E Mar 19, 2004 [id number] HOLLIE SHEPHERD [place]IENT [place] SUPPLEMEN MASTER MEDEX BRONZ E Mar 19, 2004 [id number] [phone] HOLLIE SHEPHERD PATIENT BCBS [facility] MEDICARE SUPPLEMEN MASTER PSUED O MEDEX BRONZ E Mar 19, 2004 [id number] HOLLIE SHEPHERD PATIENT MEDICARE (WNR) MEDICARE (M) PART B Mar 19, 2004 PART B [id number] HOLLIE SHEPHERD ALD PATIENT MEDICARE (WNR) MEDICARE (M) PART B Mar 19, 2004 PART B [id number] CORAHOLLIE SILVA ALD PATIENT MEDICARE (WNR) MEDICARE (M) PART B Mar 19, 2004 PART B [id number] CORAHOLLIE SILVA ALD PATIENT MEDICARE (WNR) MEDICARE (M) PART A Feb 17, 2003 PART A [id number] CORA,HOLLIE ALD PATIENT MEDICARE (WNR) MEDICARE (M) PART A Feb 17, 2003 PART A [id number] [phone] CORAHOLLIE SILVA ALD PATIENT MEDICARE (WNR) MEDICARE (M) PART A Feb 17, 2003 PART A [id number] CORAHOLLIE SILVA ALD PATIENT MEDICARE (WNR) MEDICARE (M) PART A Feb 17, 2003 PART A [id number] [phone] CORAHOLLIE SILVA ALD PATIENT MEDICARE (WNR) MEDICARE (M) PART B Feb 17, 2003 PART B [id number] [id number] CORAHOLLIE SILVA ALD PATIENT MEDICARE (WNR) MEDICARE (M) PART A Feb 17, 2003 PART A [id number] [phone] HOLLIE SHEPHERD PATIENT MEDICARE (WNR) MEDICARE (M) PART B Feb 17, 2003 PART B [id number] [phone] HOLLIE SHEPHERD PATIENT Selected Encounter This section includes the information on record at [place] for the Encounter. Date/Time Encounter Type Encounter Description Reason Provider Source Mar 25, 2024 10:00 AM CPTR OPHTH DX IMG POST SEGMT OPTOMETRY ICD-10-CM 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, right eye, intermed dry stage BARBARA VALLADARES Mikey Encounter Template Text not used by [place] Assessments - Encounter Diagnoses This section includes the primary and secondary diagnoses documented for the Encounter. Date/Time Primary/Secondary Diagnosis Diagnosis Name Provider Source Apr 10, 2024 12:56 PM PRIMARY Nexdtve age-related mclr degn, right eye, intermed dry stage BARBARA VALLADARES [place] [facility] [place] [facility] Apr 10, 2024 12:56 PM SECONDARY Nexdtve age-related mclr degn, left eye, intermed dry stage BARBARA VALLADARES Mikey [place] [facility] [place] [facility] Plan of Treatment: Future Appointments (+ 6 months) and Future Tests (+/- 45 days) The Plan of Treatment section includes future care activities for the patient from all [place] [facility] This section includes future appointments and future orders which are active, pending or scheduled. Future Appointments This section includes appointments that were scheduled to occur 6 months from the date of the Encounter, up to a maximum of 20 appointments. The data comes from all [place] treatment facilities. Appointment Date/Time Appointment Type Appointme nt Facility Name Apr 02, 2024 02:00 PM AMBULATORY - MEDICINE [facility] [place] [facility] Apr 04, 2024 02:00 PM AMBULATORY - MEDICINE [facility] [place] [facility] Apr 08, 2024 01:00 PM AMBULATORY - REHAB MEDICIN E [facility] [place] [facility] Apr 12, 2024 09:45 AM AMBULATORY - MEDICINE [facility] [place] [facility] Apr 16, 2024 10:00 AM AMBULATORY - REHAB MEDICIN E [facility] [place] [facility] May 02, 2024 10:00 AM AMBULATORY - REHAB MEDICIN E [facility] [place] [facility] May 08, 2024 10:00 AM AMBULATORY - REHAB MEDICIN E [facility] [place] [facility] May 29, 2024 11:30 AM AMBULATORY - MEDICINE [facility] [place] [facility] Jun 05, 2024 12:00 PM AMBULATORY [place] [facility] Jun 05, 2024 12:00 PM AMBULATORY - PSYCHIATRY [facility] [place] [facility] Jun 17, 2024 10:30 AM AMBULATORY - MEDICINE [facility] [place] [facility] Aug 06, 2024 10:00 AM AMBULATORY - MEDICINE [place] [facility] [place] [facility] Social History: Smoking Status (Most current) and Tobacco Use (All prior to encounter date) This section includes the most current, and the historical, smoking and tobacco- related health factors from the [facility] facility where the Encounter took place. Current Smoking Status This section includes the most current smoking, or tobacco-related health factor, from the [place] facility where the Encounter took place. Date/Time Current Smoking Status Comment [facility] Jun 05, 2023 11:00 AM VA-TOBACCO FORMER USER [place] [facility] [place] [facility] Tobacco Use History This section includes a history of the smoking, or tobacco-related health factors, that were collected on or before the date of the Encounter. The data comes from the [place] facility where the Encounter took place. Date/Time Smoking Status/Tobac co Use Comment Facility Jun 05, 2023 11:00 AM VA-TOBACCO QUIT 15 YRS OR MORE [facility] [place] [facility] Jun 06, 2022 01:00 PM VA-TOBACCO FORMER USER [facility] [place] [facility] Jun 06, 2022 01:00 PM VA-TOBACCO QUIT 15 YRS OR MORE [facility] [place] [facility] Jun 30, 2021 02:37 PM VA-TOBACCO FORMER USER [place] [facility] [place] [facility] Jun 30, 2021 02:37 PM VA-TOBACCO QUIT 5 TO < 15 YRS [facility] [place] [facility] May 22, 2020 03:30 PM VA-TOBACCO NEVER USED [place] [facility] [place] [facility] May 08, 2018 02:03 PM VA-TOBACCO FORMER USER [facility] [place] [facility] May 08, 2018 02:03 PM VA-TOBACCO QUIT 15 YRS OR MORE [facility] [place] [facility] November 10, 2017 02:33 PM QUIT TOBACCO USE > 7 YEARS AGO [facility] [place] [facility] October 21, 2016 01:55 PM QUIT TOBACCO USE > 7 YEARS AGO [facility] [place] [facility] Sep 18, 2015 11:24 AM QUIT TOBACCO USE > 7 YEARS AGO stopped 50 years ago [facility] [place] [facility] May 19, 2005 08:01 AM HISTORY OF SMOKING [facility] [place] [facility] May 31, 2004 01:02 PM HISTORY OF SMOKING [facility] [place] [facility] Jun 04, 2003 07:57 AM HISTORY OF SMOKING [facility] [place] [facility] Jun 03, 2002 01:11 PM HISTORY OF SMOKING [facility] Jun 03, 2002 01:11 PM QUIT TOBACCO USE > 7 YEARS AGO [facility] Advance Directives: All historical and current Section Date Range: From patient's date of to the date document was created. This section includes ALL of a patient's completed or amended [place] Advance and Rescinded Directives. The entries below indicate that a directive exists for the patient, but an actual copy is not included with this document. The data comes from all [place] facilities. Date Advance Directives Provider Source Jun 02, 2023 ADVANCE DIRECTIVE JENNIFER QUIROS [facility] Radiology Reports: +/- 30 [...] the Encounter. The data comes from all [place] treatment facilities. Date/Time Radiology Report Provider Source Apr 02, 2024 02:24 PM SHOULDER,COMPLETE(RIGHT): BEBO SHEPHERD [id number] -1940 M [facility] Date: APR 02, 2024@14:24 Req Phys: TOÑO CAI Loc: CWM/NO/PACT 3 (Req'g Loc) [facility] Loc: [facility] 1 Service: [place] [address] (Case 50 COMPLETE) SHOULDER,COMPLETE(RIGHT) (RAD Detailed) CPT:33626 Reason for Study: lateral pain after a fall last week. Clinical History: Report Status: Verified Date Reported: APR 02, 2024 Date Verified: APR 02, 2024 It Infrastructure Consultant E-Sig:/ES/NAPOLEON ELLIOTT JR Report: Study: AP internally [...] Primary Interpreting Staff: NAPOLEON ELLIOTT JR, Radiologist (It Infrastructure Consultant) /NAPOLEON SCHMITZ JR [facility] Encounter Notes: All associated encounter notes This section contains the clinical notes associated to the Encounter. Date/Time Encounter Note(s) Provider Source Mar 25, 2024 11:03 AM OPTOMETRY CONSULT: [facility] TITLE: CONSULT REPORT/OPTOMETRY/JACQUELYN([place] ) STANDARD TITLE: OPTOMETRY CONSULT DATE OF NOTE: MAR 25, 2024@11:03 ENTRY DATE: MAR 25, 2024@11:03:08 AUTHOR: BARBARA VALLADARES COSIGNER: URGENCY: STATUS: COMPLETED Active Problems: Active Problem Elevated PSA R97.20 10/11/2023 ALLIE CUELLO Aortic Valve Disorder (SCT 7385603) 10/09/2023 TOÑO CAI Cerebrovascular disease I67.9 04/26/2023 [...] DE LA CRUZ MD Hypertension (SNOMED CT 50999583) I 04/26/2023 ALLIE CUELLO Spinal Stenosis * (ICD-9-CM 724.00) 02/05/2010 VESTA DE LA CRUZ MD Hyperlipidemia (SNOMED CT 28376480) 04/26/2023 ALLIE CUELLO Osteoarthritis * (ICD-9-CM 715.90) 07/02/2008 PAUL ACOSTA Lower Back Pain * (ICD-9-CM 724.2) 07/02/2008 PAUL ACOSTA Vertigo 780.4 11/28/2007 PAUL ACOSTA Diabetes mellitus type 2 (SNOMED CT 09/17/2022 ALLIE CUELLO Gastroesophageal Reflux Disorder 53 11/28/2007 PAUL ACOSTA Active Medications ([facility]): Active Outpatient Medications (including Supplies): [...] MOUTH TWICE ACTIVE DAILY 23 Total Medications Active Medications (non-VA prescribed): Allergies: PENICILLIN, ZOSYN, METFORMIN S: Patient with dry macular degeneration is in for repeat macular OCT. O: Macular OCT was run by histotechnician. A: OD shows stable early to intermediate dry macular degeneration and OS today exhibits new PED centrally that was not there last year. P: Follow-up as scheduled for today. Will order consult to [place] [facility] for left eye. /thomas/ BARBARA VALLADARES OD STAFF DATABASE ADMINISTRATION ASSOCIATE Signed: 03/25/2024 11:05 BARBARA VALLADARES [place] [facility]
--- OUTSIDE RECORDS SUMMARY | 2024-06-14 13:21 | XMS_ITS | Encounter Summary ---
Author Name [facility] [place] Address [address] [place] [address] Care Team Providers Care Oil Well Services Dispatcher Name Role Phone TOÑO CAI Primary Care [...] O MEDEX BRONZ E Mar 19, 2004 [id number] HOLLIE SHEPHERD PATIENT [place] MED[place]ARE SUPPLEMEN MASTER MEDEX BRONZ E Mar 19, 2004 [id number] [phone] HOLLIE SHEPHERD [place] SUPPLEMEN MASTER MEDEX BRONZ E Mar 19, 2004 [id number] [phone] HOLLIE SHEPHERD PATIENT BCBS [facility] MEDICARE SUPPLEMEN MASTER PSUED O MEDEX BRONZ E Mar 19, 2004 [id number] HOLLIE SHEPHERD PATIENT MEDICARE (WNR) MEDICARE (M) PART B Mar 19, 2004 PART B [id number] HOLLIE SHEPHERD PATIENT MEDICARE (WNR) MEDICARE (M) PART B Mar 19, 2004 PART B [id number] CORAHOLLIE SILVA ALD PATIENT MEDICARE (WNR) MEDICARE (M) PART B Mar 19, 2004 PART B [id number] CORAHOLLIE SILVA ALD PATIENT MEDICARE (WNR) MEDICARE (M) PART A Feb 17, 2003 PART A [id number] CORAHOLLIE SILVA ALD PATIENT MEDICARE (WNR) MEDICARE (M) PART A Feb 17, 2003 PART A [id number] CORAHOLLIE SILVA ALD PATIENT MEDICARE (WNR) MEDICARE (M) PART A Feb 17, 2003 PART A [id number] [phone] HOLLIE SHEPHERD ALD PATIENT MEDICARE (WNR) MEDICARE (M) PART A Feb 17, 2003 PART A [id number] [phone] CORAHOLLIE SILVA ALD PATIENT MEDICARE (WNR) MEDICARE (M) PART B Feb 17, 2003 PART B [id number] [id number] [phone] HOLLIE SHEPHERD ALD PATIENT MEDICARE (WNR) MEDICARE (M) PART A Feb 17, 2003 PART A [id number] HOLLIE SHEPHERD PATIENT MEDICARE (WNR) MEDICARE (M) PART B Feb 17, 2003 PART B [id number] HOLLIE SHEPHERD PATIENT Selected Encounter This section includes the information on record at [place] for the Encounter. Date/Time Encounter Type Encounter Description Reason Provider Source Mar 25, 2024 11:41 AM FIT SPECTACLES MULTIFOCAL OPTOMETRY ICD-10-CM Z46.0 Encounter for fit/adjst of spectacles and contact lenses BARBARA VALLADARES Encounter Template Text not used by [place] Assessments - Encounter Diagnoses This section includes the primary and secondary diagnoses documented for the Encounter. Date/Time Primary/Secondary Diagnosis Diagnosis Name Provider Source Mar 25, 2024 11:41 AM PRIMARY Encounter for fit/adjst of spectacles and contact lenses MESSI HERNANDEZ [place] [facility] [place] [facility] Plan of Treatment: Future Appointments (+ 6 months) and Future Tests (+/- 45 days) The Plan of Treatment section includes future care activities for the patient from all [place] [facility]. This section includes future appointments and future [...] - MEDICINE [facility] [place] [facility] Apr 04, 2024 02:00 PM AMBULATORY - MEDICINE [facility] [place] [facility] Apr 08, 2024 01:00 PM AMBULATORY - REHAB MEDICIN E [facility] [place] [facility] Apr 12, 2024 09:45 AM AMBULATORY - MEDICINE [facility] [place] [facility] Apr 16, 2024 10:00 AM AMBULATORY - REHAB MEDICIN E [facility] [place] [facility] May 02, 2024 10:00 AM AMBULATORY - REHAB MEDICIN E [facility] [place] [facility] May 08, 2024 10:00 AM AMBULATORY - REHAB MEDICIN E [facility] [place] [facility] May 29, 2024 11:30 AM AMBULATORY - MEDICINE [place] [facility] [facility] Jun 05, 2024 12:00 PM AMBULATORY [place] [facility] Jun 05, 2024 12:00 PM AMBULATORY - PSYCHIATRY [place] [facility] [place] [facility] Jun 17, 2024 10:30 AM AMBULATORY - MEDICINE [place] [facility] [place] [facility] Aug 06, 2024 10:00 AM AMBULATORY - MEDICINE [place] [facility] [place] [facility] Social History: Smoking Status (Most current) and [...] place. Date/Time Current Smoking Status Comment Ninfa armstrong Jun 05, 2023 11:00 AM VA-TOBACCO FORMER USER [facility] [place] [facility] Tobacco Use History This section includes a history of the smoking, or tobacco-related health factors, that were collected on or before the date of the Encounter. The data comes from the [place] facility where the Encounter took place. Date/Time Smoking Status/Tobac co Use Comment Facility Jun 05, 2023 11:00 AM VA-TOBACCO QUIT 15 YRS OR MORE [place] [facility] [place] [facility] Jun 06, 2022 01:00 PM VA-TOBACCO FORMER USER [facility] [place] [facility] Jun 06, 2022 01:00 PM VA-TOBACCO QUIT 15 YRS OR MORE [facility] [place] [facility] Jun 30, 2021 02:37 PM VA-TOBACCO FORMER USER [facility] [place] [facility] Jun 30, 2021 02:37 PM VA-TOBACCO QUIT 5 TO < 15 YRS [place] [facility] [place] [facility] May 22, 2020 03:30 PM VA-TOBACCO NEVER USED [place] [facility] [place] [facility] May 08, 2018 02:03 PM VA-TOBACCO FORMER USER [facility] [place] [facility] May 08, 2018 02:03 PM VA-TOBACCO QUIT 15 YRS OR MORE [facility] [place] [facility] November 10, 2017 02:33 PM QUIT TOBACCO USE > 7 YEARS AGO [facility] [place] [facility] October 21, 2016 01:55 PM QUIT TOBACCO USE > 7 YEARS AGO [facility] [place] [facility] Sep 18, 2015 11:24 AM QUIT TOBACCO USE > 7 YEARS AGO stopped 50 years ago [facility] [place] [facility] May 19, 2005 08:01 AM HISTORY OF SMOKING [facility] [place] [facility] May 31, 2004 01:02 PM HISTORY OF SMOKING [facility] [place] [facility] Jun 04, 2003 07:57 AM HISTORY OF SMOKING [facility] [place] [facility] Jun 03, 2002 01:11 PM HISTORY OF SMOKING [facility] [place] [facility] Jun 03, 2002 01:11 PM QUIT TOBACCO USE > 7 YEARS AGO [place] [facility] [place] [facility] Advance Directives: All historical and current Section [...] Jun 02, 2023 ADVANCE DIRECTIVE MARYANNEJENNIFER CARNES [facility] Radiology Reports: +/- 30 days of the [...] the Encounter. The data comes from all [place] treatment facilities. Date/Time Radiology Report Provider Source Apr 02, 2024 02:24 PM SHOULDER,COMPLETE(RIGHT): BEBO SHEPHERD Nisa [id number] -1940 [facility] Date: APR 02, 2024@14:24 Req Phys: TOÑO CAI Loc: M/NO/PACT 3 (Req'g Loc) Img Loc: [facility] Service: [place] [address] (Case 50 COMPLETE) SHOULDER,COMPLETE(RIGHT) (RAD Detailed) CPT:29176 Reason for Study: lateral pain after a fall last week. Clinical History: Report Status: Verified Date Reported: APR 02, 2024 Date Verified: APR 02, 2024 Ell Tutor E-Sig:/ES/NAPOLEON ELLIOTT JR Report: Study: AP internally [...] Primary Interpreting Staff: NAPOLEON ELLIOTT JR, Radiologist (Ell Tutor) /EAD NAPOLEON ELLIOTT JR [place] [facility] Encounter Notes: All associated encounter notes This section contains the clinical notes associated to the Encounter. Date/Time Encounter Note(s) Provider Source Mar 25, 2024 11:41 AM OPTOMETRY NOTE: LOCAL TITLE: OPTOMETRY NOTE STANDARD TITLE: OPTOMETRY NOTE DATE OF NOTE: MAR 25, 2024@11:41 ENTRY DATE: MAR 25, 2024@11:41:50 AUTHOR: ELENI YAO EXP COSIGNER: URGENCY: STATUS: COMPLETED OPTOMETRY NOTE Has ADDENDA The quote provided below is for informational purposes only. Please verify prior to the creation of a purchase order. BEBO SHEPHERD [id number] RX INFORMATION OD -0.50 -0.50 X95 Add:+2.75 Pzm:0.00 Dir: Prz2:0.00 Dir2: OS -1.25 -0.50 X85 Add:+2.75 Pzm:0.00 Dir: Prz2:0.00 Dir2: FITTING INFORMATION FPD: NPD: [place]:R:32 L:32 SEG HT:R:25 L:25 Tint:None Shade:None VA Billable Items FRAME: MOSCOW GOLD [id number] Right Lens: PLASTIC VA PROGRESSIVE PHOTOCHROMIC BOYD 1.498 PLASTIC CR39 Left Lens: PLASTIC VA PROGRESSIVE PHOTOCHROMIC BOYD 1.498 PLASTIC CR39 KLEAR ANTI-REFLECTIVE COATING CLIN items [employer] - AR Coating 0004 - Progressive - Glass Plastic Poly 0005 - Transition /thomas/ ELENI YAO CONSTRUCTION SCHEDULER Signed: 03/25/2024 11:41 Receipt Acknowledged By: 03/25/2024 11:42 /es/ Messi Hernandez LPN Licensed Practical Nurse 03/25/2024 ADDENDUM STATUS: COMPLETED PDS cook frozen dessert fit 1 PAL eyeglasses on 03/25/2024. OPT HT entered consult(s) as requested for provider signature. /thomas/ Messi Hernandez LPN Licensed Practical Nurse Signed: 03/25/2024 11:44 [facility]
--- OUTSIDE RECORDS SUMMARY | 2024-06-14 13:21 | XMS_ITS ---
Author Name [facility] Address [address] [place] [id number] Care Team Providers Care Assistant Teacher Primary Name Role Phone TOÑO CAI Primary Care [...] Relationship to Policy Wen [place] SUPPLEMEN MASTER PSUED O MEDEX BRONZ E Mar 19, 2004 [id number] HOLLIE SHEPHERD [place]IENT [place] SUPPLEMEN MASTER MEDEX BRONZ E Mar 19, 2004 [id number] [phone] HOLLIE SHEPH[place]D [place] SUPPLEMEN MASTER MEDEX BRONZ E Mar 19, 2004 [id number] [phone] HOLLIE SHEPHERD PATIENT BCBS [facility] MEDICARE SUPPLEMEN MASTER PSUED O MEDEX BRONZ E Mar 19, 2004 [id number] HOLLIE SHEPHERD PATIENT MEDICARE (WNR) MEDICARE (M) PART B Mar 19, 2004 PART B [id number] CORA,HOLLIE ALD PATIENT MEDICARE (WNR) MEDICARE (M) PART B Mar 19, 2004 PART B [id number] HOLLIE SHEPHERD ALD PATIENT MEDICARE (WNR) MEDICARE (M) PART B Mar 19, 2004 PART B [id number] CORAHOLLIE SILVA ALD PATIENT MEDICARE (WNR) MEDICARE (M) PART A Feb 17, 2003 PART A [id number] CORAHOLLIE SILVA ALD PATIENT MEDICARE (WNR) MEDICARE (M) PART A Feb 17, 2003 PART A [id number] CORAHOLLIE SILVA ALD PATIENT MEDICARE (WNR) MEDICARE (M) PART A Feb 17, 2003 PART A [id number] HOLLIE SHEPHERD PATIENT MEDICARE (WNR) MEDICARE (M) PART A Feb 17, 2003 PART A [id number] HOLLIE SHEPHERD PATIENT MEDICARE (WNR) MEDICARE (M) PART B Feb 17, 2003 PART B [id number] HOLLIE SHEPHERD PATIENT MEDICARE (WNR) MEDICARE (M) PART A Feb 17, 2003 PART A [id number] HOLLIE SHEPHERD PATIENT MEDICARE (WNR) MEDICARE (M) PART B Feb 17, 2003 PART B [id number] HOLLIE SHEPHERD PATIENT Selected Encounter This section includes the information on record at NH for the Encounter. Date/Time Encounter Type Encounter Description Reason Provider Source Apr 16, 2024 10:00 AM THERAPEUTIC EXERCISES PHYSICAL THERAPY ICD-10-CM M54.9 Dorsalgia, unspecified NEGRITO FORD IN [facility] Encounter Template Text not used by NH Assessments - Encounter Diagnoses This section includes the primary and secondary diagnoses documented for the Encounter. Date/Time Primary/Secondary Diagnosis Diagnosis Name Provider Source Apr 28, 2024 09:03 AM PRIMARY Dorsalgia, unspecified GRUPO FORD N [facility] [place] [facility] Plan of Treatment: [...] 20 appointments. The data comes from all [facility]. Appointment Date/Time Appointment Type Appointme nt Facility Name May 02, 2024 10:00 AM AMBULATORY - [facility]IC[facility] [place] [facility] May 08, 2024 10:00 AM AMBULATORY - REHAB MEDICIN E [facility] [place] [facility] May 29, 2024 11:30 AM AMBULATORY - MEDICINE [facility] [place] [facility] Jun 05, 2024 12:00 PM AM[place]UL[place]ORY [place] [facility] Jun 05, 2024 12:00 PM AMBULATORY - PSYCHIATRY [facility] [place] [facility] Jun 17, 2024 10:30 AM AMBULATORY - MEDICINE [facility] [place] [facility] Aug 06, 2024 10:00 AM AMBULATORY - MEDICINE [facility] [place] [facility] Oct 02, 2024 12:00 PM AMBULATORY [place] [facility] Oct 02, 2024 12:00 PM AMBULATORY - PSYCHIATRY [facility] [place] [facility] Oct 03, 2024 02:00 PM AMBULATORY - MEDICINE [facility] [place] [facility] Active, Pending, and Scheduled Orders This section includes a listing of several types of active, pending, and scheduled orders, including clinic medications orders, diagnostic test orders, procedure orders and consult orders; where the start date of the order is 45 days before the date of the Encounter or 45 days after the date of theEncounter. The data comes from all [facility]. Test Date/Time Test Type Test Details Facility Name May 29, 2024 06:36 PM Consult Order PHARMACY/N HM OUTPT Cons Car Blocker's Choice [facility] [place] [facility] Lab Results: +/- 30 days of the encounter This section includes the Chemistry and Hematology Lab Results on record with NH for the patient. Radiology Reports and Pathology Reports are provided separately, in subsequent sections. Lab Results This section contains the Chemistry/Hematology Results that were resulted 30 days before or 30 daysafter the date of the Encounter. Date/Time Source Result Type Result - Unit Interpretation Reference Range Comment May 08, 2024 11:24 AM [facility] TESTOSTERONE, TOTAL (WHV) Specimen Type: SERUM No comment entered. Ordering Provider: JACINTO CAI Report Released Date/Time: Aug 11, 2023 11:52 AM Reporting Lab: [address] [address] Performing [facility]: [facility] [address] TESTOSTERONE, TOTAL (V) 44.33 ng/dL L 220.00-892. 00 May 08, 2024 11:24 AM [facility] LIPID PANEL FASTING Specimen Type: SERUM No comment entered. Ordering Provider: JACINTO CAI Report Released Date/Time: Aug 11, 2023 11:52 AM Reporting Lab: [address] [address] Per[facility]: [facility] [address] [address] CHOLESTEROL 142 mg/dL TRIGLYCERIDE 179 mg/dL H 0-150 LDL calculated 64 mg/dL 0-129 CHOL/HDL 3.4 HDL CHOLESTEROL 42 mg/dL 40-60 May 08, 2024 11:24 AM [facility] LIVER FUNCTION Specimen Type: SERUM No comment entered. Ordering Provider: JACINTO CAI Report Released Date/Time: Aug 11, 2023 11:52 AM Reporting [facility] [address] [address] Performing Lab: [address] [address] PROTEIN,TOTAL 5.5 g/dL L 6.0-8.3 ALBUMIN 3.6 g/dL 3.5-5.0 ALKALINE PHOSPHATASE 71 U/L 40-150 AST 20 U/L 5-34 ALT 24 U/L BILIRUBIN, TOTAL 1.1 mg/dL 0.2-1.2 May 08, 2024 11:24 AM [facility] CBC Specimen Type: BLOOD No comment entered. Ordering Provider: JACINTO CAI Report Released Date/Time: Aug 11, 2023 11:52 AM Reporting Lab: [address] [address] Performing Lab: [address] [address] WBC 4.08 10*3/uL L 4.50-11.00 RBC 4.53 10*6/uL 4.23-5.66 HGB 13.1 g/dL 12.8-17 HCT 39.9 39.2-50.4 MCV 88.1 fL 82-99 MCHC 32.8 g/dL 30.8-35.1 PLT 130 10*3/uL L 140-360 RDW-CV 14.5 12.0-16.0 MCH 28.9 pg 26.2-32.6 May 08, 2024 11:24 AM [facility] BASIC METABOLIC PANEL (fasting) Specimen Type: SERUM No comment entered. Ordering Provider: JACINTO CAI Report Released Date/Time: Aug 11, 2023 11:52 AM Reporting Lab: [address] [address] Performing Lab: [address] [address] UREA NITROGEN 19 mg/dL 7-25 GLUCOSE 216 mg/dL H 65-100 SODIUM 142 mmol/L 135-145 POTASSIUM 3.5 mmol/L 3.5-5.0 CHLORIDE 107 mmol/L 100-110 CO2 25 meq/L 20-30 CREATININE, Serum 0.84 mg/dL 0.50-1.40 eGFR(CKD-EPI 2020) 85 mL/min >60 May 08, 2024 11:24 AM [facility] CBC AND DIFF (AUTO) Specimen Type: BLOOD No comment entered. Ordering Provider: JACINTO CAI Report Released Date/Time: Aug 11, 2023 11:52 AM Reporting Lab: [address] [address] Performing [facility]: [facility] [address] [facility] [address] WBC 4.08 10*3/uL L 4.50-11.00 RBC 4.53 [...] 0.5 0.0-0.7 IMMATURE GRAN, ABS 0.02 10*3/uL 0.00-0.06 NRBC % 0.0 0.0-0.0 NRBC, ABS 0.00 10*3/uL 0.00-0.00 May 08, 2024 11:23 AM [facility] OSMOLALITY (SERUM) Specimen Type: SERUM No comment entered. Ordering Provider: ALLIE CUELLO Report Released Date/Time: Nov 27, 2023 07:39 PM Reporting Lab: [facility] [address] [facility] [address] Performing Lab: [facility] [address] [facility] [address] OSMOLALITY (SERUM) 299 280-300 May 08, 2024 11:23 AM [email or web address] CALCIUM Specimen Type: SERUM Comment: *GLUCOSE Not Performed: May 08, 2024@11:36 by [id number] *ENGINEERING FACULTY MEMBER Reason: Duplicate *UREA NITROGEN Not Performed: May 08, 2024@11:36 by [id number] *ENGINEERING FACULTY MEMBER Reason: Duplicate *CREATININE (eGFR 2020) Not Performed: May 08, 2024@11:36 by [id number] *ENGINEERING FACULTY MEMBER Reason: Duplicate *SODIUM Not Performed: May 08, 2024@11:36 by [id number] *ENGINEERING FACULTY MEMBER Reason: Duplicate *CHLORIDE Not Performed: May 08, 2024@11:36 by [id number] *ENGINEERING FACULTY MEMBER Reason: Duplicate *CO2 Not Performed: May 08, 2024@11:36 by [id number] *ENGINEERING FACULTY MEMBER Reason: Duplicate *POTASSIUM Not Performed: May 08, 2024@11:36 by [id number] *ENGINEERING FACULTY MEMBER Reason: Duplicate Ordering Provider: ALLIE CUELLO Report Released Date/Time: Nov 27, 2023 07:39 PM Reporting Lab: [facility] [address] [facility] [address] Performing Lab: [facility] [address] [facility] [address] CALCIUM 8.5 mg/dL 8.5-10.2 May 08, 2024 11:23 AM [facility] VITAMIN D (25-[place]) Specimen Type: SERUM No comment entered. Ordering Provider: ALLIE CUELLO Report Released Date/Time: Nov 27, 2023 07:39 PM Reporting Lab: [facility] [address] [facility] [address] Performing Lab: [facility] [address] [facility] [address] VITAMIN D (25-OH) 46 ng/mL 20-50 Social History: Smoking Status (Most current) and Tobacco Use (All prior to encounter date) This section includes the most current, and the historical, smoking and tobacco- related health factors from the NH facility where the Encounter took place. Current Smoking Status This section includes the most current smoking, or tobacco-related health factor, from the NH facility where the Encounter took place. Date/Time Current Smoking Status Comment Facil nathaniel Jun 05, 2023 11:00 AM VA-TOBACCO FORMER USER [facility] [place] [facility] Tobacco Use History This section includes a history of the smoking, or tobacco-related health factors, that were collected on or before the date of the Encounter. The data comes from the NH facility where the Encounter took place. Date/Time Smoking Status/Tobac co Use Comment Facility Jun 05, 2023 11:00 AM VA-TOBACCO QUIT 15 YRS OR MORE [facility] [place] [facility] Jun 06, 2022 01:00 PM VA-TOBACCO FORMER USER [facility] [place] [facility] Jun 06, 2022 01:00 PM VA-TOBACCO QUIT 15 YRS OR MORE [facility] [place] [facility] Jun 30, 2021 02:37 PM VA-TOBACCO FORMER USER [facility] [place] [facility] Jun 30, 2021 02:37 PM VA-TOBACCO QUIT 5 TO < 15 YRS [facility] [place] [facility] May 22, 2020 03:30 PM VA-TOBACCO NEVER USED [facility] [place] [facility] May 08, 2018 02:03 PM VA-TOBACCO FORMER USER [facility] [place] [facility] May 08, 2018 02:03 PM VA-TOBACCO QUIT 15 YRS OR MORE [facility] [place] [facility] November 10, 2017 02:33 PM QUIT TOBACCO USE > 7 YEARS AGO [facility] [place] [facility] October 21, 2016 01:55 PM QUIT TOBACCO USE > 7 YEARS AGO [facility] [place] [facility] Sep 18, 2015 11:24 AM QUIT TOBACCO USE > 7 YEARS AGO stopped 50 years ago [facility] [place] [facility] May 19, 2005 08:01 AM HISTORY OF SMOKING [facility] [place] [facility] May 31, 2004 01:02 PM HISTORY OF SMOKING [facility] [place] [facility] Jun 04, 2003 07:57 AM HISTORY OF SMOKING [facility] [place] [facility] Jun 03, 2002 01:11 PM HISTORY OF SMOKING [facility] [place] [facility] Jun 03, 2002 01:11 PM QUIT TOBACCO USE > 7 YEARS AGO [facility] [place] [facility] Advance Directives: All historical and current Section Date Range: From patient's date of to the date document was created. This section includes ALL of a patient's completed or amended NH Advance and Rescinded Directives. The entries below indicate that a directive exists for the patient, but an actual copy is not included with this document. The data comes from all NH facilities. Date Advance Directives Provider Source Jun 02, 2023 ADVANCE DIRECTIVE MARYANNEJENNIFER CARNES [facility] Radiology Reports: +/- 30 days [...] the Encounter. The data comes from all NH treatment facilities. Date/Time Radiology Report Provider Source Apr 02, 2024 02:24 PM SHOULDER,COMPLETE(RIGHT): BEBO SHEPHERD Nisa [id number] -1940 M Ex Date: APR 02, 2024@14:24 Req Phys: TOÑO CAI Loc: CWM/NO/PACT 3 (Req'g Loc) Img Loc: [facility] 1 Service: Unknown [facility] [place] [address] (Case 50 COMPLETE) SHOULDER,COMPLETE(RIGHT) (RAD Detailed) CPT:32252 Reason for Study: lateral pain after a fall last week. Clinical History: Report Status: Verified Date Reported: APR 02, 2024 Date Verified: APR 02, 2024 Motorcycle Service Technician E-Sig:/ES/NAPOLEON ELLIOTT JR Report: Study: AP internally [...] Primary Interpreting Staff: NAPOLEON ELLIOTT JR, Radiologist (Motorcycle Service Technician) /EANAPOLEON LUTHER JR [facility] [place] [facility] Encounter Notes: All associated encounter notes This section contains the clinical notes associated to the Encounter. Date/Time Encounter Note(s) Provider Source Apr 16, 2024 12:53 PM PHYSICAL THERAPY NOTE: LOCAL TITLE: PHYSICAL THERAPY STANDARD TITLE: PHYSICAL THERAPY NOTE DATE OF NOTE: APR 16, 2024@12:53 ENTRY DATE: APR 16, 2024@12:53:30 AUTHOR: DENISE FORD COSIGNER: URGENCY: STATUS: COMPLETED Initial Evaluation date: Mar Treatment #: 1 Treatment time: 30 mins Diagnosis: Dorsalgia, unspecified(ICD-10-CM M54.9) Provider: Ned PT Treatment Precautions: Patient identified by full name and date of SUBJECTIVE: States that his LB is sore today, has been barely doing his HEP OBJECTIVE: THERAPEUTIC EXERCISE: MINUTES: 30 mins Nu-step 10 mins L3 seated HS, piriformis S bridging in supine LTR in supine MANUAL THERAPY: MINUTES: GAIT TRAINING: MINUTES: NEUROMUSCULAR EDUCATION: MINUTES: OTHER: MINUTES: MODALITIES: MINUTES: [] Contraindication screen completed prior to modality [] Skin intact pre/post SELF CARE/EDUCATION: MINUTES: Access Code: [email or web address] URL: [email or web address] / Date: 04/16/2024 Prepared by: [facility] Exercises - Seated Transversus Abdominis Bracing - 5-10 x daily - 10 reps - 2 breaths hold - Seated Hamstring Stretch - 3 x daily - 3 sets - 30 secs hold - Supine Figure 4 Piriformis Stretch - 3 x daily - 3 sets - 30 secs hold - Supine Piriformis Stretch with Foot on Ground - 3 x daily - 3 sets - 30 secs hold - Seated Piriformis Stretch - 1 x daily - 7 x weekly - 3 sets - 3 reps - 30 hold - Supine Bridge - 1 x daily - 7 x weekly - 3 sets - 10 reps - Supine Lower Trunk Rotation - 1 x daily - 7 x weekly - 3 sets - 10 reps Patient education was provided for all aspects of care during this clinical encounter. ASSESSMENT: Tolerated session well, feeling much better after session, looser, PLAN: Pt to be seen 1x/week for 6-8 weeks POC to include: [x]Low impact cardio: [x]Nustep [x]Recumbent elliptical [x]Manual: [x]STM/DTM [x]IASTM [x]Therex: [x]Progressive Core [x]Progressive LQ [x]Lumbar flex [x]LQ flex [x]Neuro Re-education: [x]Static [x]Dynamic [x]Education: [x]Posture [x]Bodymechanics [x]Self-care strategies [x]Modalities(PRN): [x]Heat/Ice [NO]Mechanical traction [x][employer] /thomas/ ROBYN SEXTON LICENSE HEMATOLOGY NURSE EDUCATOR Signed: 04/16/2024 13:00 DEN[facility] FORD [facility]
--- OUTSIDE RECORDS SUMMARY | 2024-06-14 13:21 | XMS_ITS | Encounter Summary ---
Author Name [facility] [place] Organization [facility] [place] [place] Address [address] [place] [id number] Care Team Providers Care Section Weaver Name Role Phone TOÑO CAI Primary Care [...] Relationship to Policy Wen [place] OF [place] MEDICARE SUPPLEMEN MASTER PSUED O MEDEX [facility] E Mar 19, 2004 [id number] HOLLIE SHEPHERD [place] SUPPLEMEN MASTER MEDEX [place] E Mar 19, 2004 [id number] [phone] HOLLIE [place]PH[place] SUPPLEMEN MASTER MEDEX [place] E Mar 19, 2004 [id number] [phone] HOLLIE SHEPHERD PATIENT BCBS [facility] MEDICARE SUPPLEMEN MASTER PSUED O MEDEX [place] E Mar 19, 2004 [id number] HOLLIE SHEPHERD PATIENT MEDICARE (WNR) MEDICARE (M) PART B Mar 19, 2004 PART B [id number] [phone] HOLLIE SHEPHERD PATIENT MEDICARE (WNR) MEDICARE (M) PART B Mar 19, 2004 PART B [id number] HOLLIE SHEPHERD PATIENT MEDICARE (WNR) MEDICARE (M) PART B Mar 19, 2004 PART B [id number] CORAHOLLIE SILVA PATIENT MEDICARE (WNR) MEDICARE () PART A Feb 17, 2003 PART A [id number] CORAHOLLIE SILVA PATIENT MEDICARE (WNR) MEDICARE (M) PART A Feb 17, 2003 PART A [id number] [phone] HOLLIE SHEPHERD PATIENT MEDICARE (WNR) MEDICARE (M) PART A Feb 17, 2003 PART A [id number] [phone] HOLLIE SHEPHERD PATIENT MEDICARE (WNR) MEDICARE () PART A Feb 17, 2003 PART A [id number] [phone] HOLLIE SHEPHERD PATIENT MEDICARE (WNR) MEDICARE () PART B Feb 17, 2003 PART B [id number] [phone] HOLLIE SHEPHERD PATIENT MEDICARE (WNR) MEDICARE () PART A Feb 17, 2003 PART A [id number] [phone] HOLLIE SHEPHERD PATIENT MEDICARE (WNR) MEDICARE () PART B Feb 17, 2003 PART B [id number] HOLLIE SHEPHERD PATIENT Selected Encounter This section includes the information on record at CT for the Encounter. Date/Time Encounter Type Encounter Description Reason Provider Source Apr 04, 2024 02:00 PM OFFICE O/P EST MOD 30 MIN DERMATOLOGY ICD-10-CM L57.0 Actinic keratosis JAHAIRA PENA Mikey Encounter Template Text not used by CT Assessments - Encounter Diagnoses This section includes the primary and secondary diagnoses documented for the Encounter. Date/Time Primary/Secondary Diagnosis Diagnosis Name Provider Source Apr 23, 2024 03:49 PM PRIMARY Actinic keratosis GUSTAVO PENA [facility] Apr 23, 2024 03:49 PM SECONDARY Inflamed seborrheic keratosis [facility] Apr 23, 2024 03:49 PM SECONDARY Other melanin hyperpigmentation [facility] Apr 23, 2024 03:49 PM SECONDARY Other seborrheic dermatitis [facility] Apr 23, 2024 03:49 PM SECONDARY Other seborrheic keratosis [facility] Apr 23, 2024 03:49 PM SECONDARY Personal history of other malignant neoplasm of skin [facility] Plan of Treatment: Future Appointments (+ 6 months) and Future Tests (+/- 45 days) The Plan of Treatment section includes future care activities for the patient [facility] This section includes future appointments and future orders which are active, pending or scheduled. Future Appointments This section includes appointments that were scheduled to occur 6 months from the date of the Encounter, up to a maximum of 20 appointments. The data comes from all CT treatment facilities. Appointment Date/Time Appointment Type Appointme nt Facility Name Apr 08, 2024 01:00 PM [facility] Apr 12, 2024 09:45 AM [facility] Apr 16, 2024 10:00 AM AMBULATORY [facility] May 02, 2024 10:00 AM AMBULATORY [facility] May 08, 2024 10:00 AM AMBULATORY [facility] May 29, 2024 11:30 AM [facility]ORY [facility] Jun 05, 2024 12:00 PM AM[facility] Jun 05, 2024 12:00 PM AM[facility]RY [facility] Jun 17, 2024 10:30 AM AM[facility]ULATORY [facility]ICINE [facility] Aug 06, 2024 10:00 AM [facility]ULATORY [facility] Oct 02, 2024 12:00 PM AM[facility]UL[facility]ORY [facility] Oct 02, 2024 12:00 PM [facility] Oct 03, 2024 02:00 PM AMBULATORY - MEDICINE [facility] Social History: Smoking Status (Most current) and Tobacco Use (All prior to encounter date) This section includes the most current, and the historical, smoking and tobacco- related health factors from the CT facility where the Encounter took place. Current Smoking Status This section includes the most current smoking, or tobacco-related health factor, from the CT facility where the Encounter took place. Date/Time Current Smoking Status Comment [facility] Jun 05, 2023 11:00 AM VA-TOBACCO FORMER USER CT [facility] Tobacco Use History This section includes a history of the smoking, or tobacco-related health factors, that were collected on or before the date of the Encounter. The data comes from the CT facility where the Encounter took place. Date/Time Smoking Status/Tobac co Use Comment Facility Jun 05, 2023 11:00 AM VA-TOBACCO QUIT [address] [facility] Jun 06, 2022 01:00 PM VA-TOBACCO FORMER USER [facility] Jun 06, 2022 01:00 PM VA-TOBACCO QUIT 15 YRS OR MORE [facility] Jun 30, 2021 02:37 PM VA-TOBACCO FORMER USER [facility] Jun 30, 2021 02:37 PM VA-TOBACCO QUIT 5 TO < 15 YRS [facility] May 22, 2020 03:30 PM VA-TOBACCO NEVER USED [facility] May 08, 2018 02:03 PM VA-TOBACCO FORMER USER [facility] May 08, 2018 02:03 PM VA-TOBACCO QUIT 15 YRS OR MORE [facility] November 10, 2017 02:33 PM QUIT TOBACCO USE > 7 YEARS AGO [facility] October 21, 2016 01:55 PM QUIT TOBACCO USE > 7 YEARS AGO [facility] Sep 18, 2015 11:24 AM QUIT TOBACCO USE > 7 YEARS AGO stopped 50 years ago [facility] May 19, 2005 08:01 AM HISTORY OF SMOKING [facility] May 31, 2004 01:02 PM HISTORY OF SMOKING [facility] Jun 04, 2003 07:57 AM HISTORY OF SMOKING [facility] Jun 03, 2002 01:11 PM HISTORY OF SMOKING [facility] Jun 03, 2002 01:11 PM QUIT TOBACCO USE > 7 YEARS AGO [facility] Advance Directives: All historical and current Section Date Range: From patient's date of to the date document was created. This section includes ALL of a patient's completed or amended CT Advance and Rescinded Directives. The entries below indicate that a directive exists for the patient, but an actual copy is not included with this document. The data comes from all CT facilities. Date Advance Directives Provider Source Jun 02, 2023 ADVANCE DIRECTIVE MARYANNEJUAN ALBERTO CARNESJENNIFER A [facility] Radiology Reports: +/- 30 days of [...] the Encounter. The data comes from all CT treatment facilities. Date/Time Radiology Report Provider Source Apr 02, 2024 02:24 PM SHOULDER,COMPLETE(RIGHT): BEBO SHEPHERD [id number] -[id number] M Ex Date: APR 02, 2024@14:24 Req Phys: TOÑO CAI Loc: CWM/NO/PACT 3 (Req'g Loc) Img Loc: [facility] 1 Service: Unknown [facility] [address] (Case 50 COMPLETE) SHOULDER,COMPLETE(RIGHT) (RAD Detailed) CPT:80228 Reason for Study: lateral pain after a fall last week. Clinical History: Report Status: Verified Date Reported: APR 02, 2024 Date Verified: APR 02, 2024 Nuclear Engineering Technician E-Sig:/ES/NAPOLEON ELLIOTT JR Report: Study: AP [...] Primary Interpreting Staff: NAPOLEON ELLIOTT JR, Radiologist (Nuclear Engineering Technician) /NAPOLEON SCHMITZ JR [facility] Encounter Notes: All associated encounter notes This section contains the clinical notes associated to the Encounter. Date/Time Encounter Note(s) Provider Source Apr 04, 2024 02:07 PM DERMATOLOGY OUTPATIENT NOTE: LOCAL TITLE: DERMATOLOGY CLINIC NOTE STANDARD TITLE: DERMATOLOGY OUTPATIENT NOTE DATE OF NOTE: APR 04, 2024@14:07 ENTRY DATE: APR 04, 2024@14:07:26 AUTHOR: VEGA PENA EXP COSIGNER: URGENCY: STATUS: COMPLETED APR 04, 2024 BEBO SHEPHERD SEP 86 PATIENT PHONE - Patient here for FOLLOW UP CHIEF COMPLAINT: h/o BCC, AKs HPI: Reviewed records from last Dermatology visit: 10/10/23; Bx to R sabianism = SK, Bx to central upper forehead = AK, hypertrophic, but base inadequately represented and SCC cannot be entirely ruled out. reports a new lesion on L side of neck that is occasionally itchy and tender. denies any other new/changing/bleeding/non-he aling lesions. REVIEW OF SYSTEMS: Constitutional-neg Skin/Hair/Nails-see HPI DermHx: -BCC to nose s/p excision -AK, hypertrophic, central upper forehead, path proven 09/2023 but base inadequately represented and SCC cannot be entirely ruled out -AKs s/p LN2 Family Hx: Denies known [...] ONCE DAILY FOR DEPRESSION AND ANXIETY 4) GLUCOSE 4GM CHEW TAB CHEW ONE TABLET BY MOUTH EVERY ACTIVE DAY NEEDED FOR LOW BLOOD SUGAR 5) INSULIN,ASPART,HUMAN 100 UNIT/ML INJ INJECT 80 [...] APPLY FOR 8 WEEKS, THEN NEEDED 8) LEFLUNOMIDE 10MG TAB TAKE ONE TABLET BY MOUTH ONCE ACTIVE DAILY FOR 14 DAYS, THEN TAKE TWO TABLETS ONCE DAILY 9) NEEDLE 18G 1IN USE 1 NEEDLE EVERY 7 DAYS FOR ACTIVE INJECTION 10) NEEDLE 23G 1IN USE 1 NEEDLE EVERY 7 DAYS FOR ACTIVE INJECTION 11) PREDNISONE 1MG TAB TAKE FOUR TABLETS BY MOUTH ONCE ACTIVE DAILY 12) SYRINGE 1ML LUER LOCK TIP USE 1 SYRINGE EVERY 7 DAYS ACTIVE 13) TAMSULOSIN HCL 0.4MG CAP TAKE TWO CAPSULES BY MOUTH ACTIVE AT BEDTIME 14) TOCILIZUMAB 162MG/0.9ML INJ SYR 0.9ML INJECT [...] TAB 5MG BY MOUTH TWICE ACTIVE DAILY 24 Total Medications PHYSICAL EXAM: Conway Skintype II [...] noted to bilateral nasolabial folds, and jensen -Multiple thin erythematous gritty papules and plaques noted to R pre-auricular area, L sabianism -upper central forehead 1 cm erythematous hyperkeratotic papule Diagnosis/Plan: #Actinic Keratosis: -[place] educated on relationship to squamous cell carcinoma. -Treatment options discussed. -Liquid nitrogen cryotherapy performed as a destructive method. -Verbal consent given. -Liquid nitrogen (2 cycles x 5-8sec) x #3 lesions performed. -Side effects including but not limited to redness, crusting, swelling, blistering, hypopigmentation and scarring discussed. -Photoprotection discussed. #Personal History of Non-Melanotic Skin Cancer: -No evidence of recurrence at surgical site(s) -Full Body Skin Exam advised at least yearly -Photoprotection discussed -Patient instructed to follow up in clinic for any concerning lesions or changes #Seborrheic Keratoses, Irritated -The [place] was educated regarding the benign nature, but given irritation/pain, destructive treatment requested. -Liquid nitrogen cryotherapy performed as a destructive method. -Liquid nitrogen (2 cycles x 5-8sec) x #3 lesions performed. -Side effects including but not [...] ketoconazole shampoo and cream as prescribed RTC 6-12m, sooner PRN * [place] educated to RTC ivanna if any new, changing, symptomatic lesions. * Education on sun protection and avoidance strategies was provided. * Differential diagnosis, prescription options and risks/benefits were discussed with the patient, who consented to treatment plan. * consented to photography for documentation if indicated. * A dermatoscope was used during the exam. * NUB = Neoplasm of Uncertain Behavior of Skin * NMSC = Nonmelanoma Skin Cancer * AK = Actinic Keratosis ------TIME ESTIMATION To include but not limied to: -Review of medical records -Time spent with patient including obtaining history, physical exam, shared decision making, procedures and counseling -Post visit documentation; HPI and physical exam findings, clinical researching, medical decision making, medication and lab ordering Total estimated time = 30 min ----- Medication Reconciliation: Outpatient: Has the patient been taking medications as documented in the EMLR? YES: The patient has been taking medications as documented in the EMLR. Essential Medication List for Review used to complete this medication reconciliation. INCLUDED IN THIS LIST: Alphabetical list of active outpatient prescriptions dispensed from this CT (local) and dispensed from another CT or [facility] facility (remote) as well as [...] next appointment, whether with a VA or non-CT provider. JLV Link Data on this list may not be complete. Please check [employer]. Allergies/ADRs (Tool #5) FACILITY ALLERGY/ADR -------- No Remote Allergy/ADR Data available for this patient [facility] METFORMIN [facility] PENICILLIN [facility] Med Recon NoGlossary (Tool #1) INCLUDED IN THIS LIST: Alphabetical list of active outpatient prescriptions dispensed from this CT (local) and dispensed from another CT or [facility] facility (remote) as well as inpatient orders (local pending and active), local clinic medications, locally documented non-VA medications, and local prescriptions that have or been discontinued in the past 90 days. Non-VA Meds Last Documented On: Oct 09, 2023 NOTE The display of VA prescriptions dispensed from another CT or [facility] facility (remote) is limited to active outpatient prescription entries matched to National Drug File at the originating site and may not include some items such as investigational drugs, compounds, etc. NOT INCLUDED IN THIS LIST: Medications self-entered by the patient into personal health records (i.e. [facility]) are NOT included in this list. Non-VA medications documented outside this CT, remote inpatient orders (regardless of status) and [...] OUTPT ATORVASTATIN CALCIUM 80MG TAB (Status = Discontinued) TAKE ONE-HALF TABLET BY MOUTH ONCE DAILY Rx# [id number] Last Released: 01/02/24 Qty/Days Supply: 45 Rx Expiration Date: 04/26/24 Refills Remainin Indication: FOR HIGH CHOLESTEROL OUTPT ATORVASTATIN CALCIUM 80MG TAB (Status = Active) TAKE ONE-HALF TABLET BY MOUTH ONCE DAILY Rx# [id number] Last Released: 04/03/24 Qty/Days Supply: 45 Rx Expiration Date: 02/27/25 Refills Remainin Indication: FOR HIGH CHOLESTEROL OUTPT CALCIUM 200MG (CA CITRATE-950MG) TAB (Status = Active) TAKE FOUR TABLETS BY MOUTH TWICE DAILY Rx# [id number] Last Released: 12/15/23 Qty/Days Supply: / Rx Expiration Date: 11/27/24 Refills Remainin Indication: FOR OSTEOPOROSIS Non-VA CHOLECALCIF 50MCG (D3-2,000UNIT) TAB TAKE ONE TABLET BY MOUTH ONCE DAILY Aug 11, 2020 Non-VA medication not recommended by VA provider. OUTPT CITALOPRAM HYDROBROMIDE 10MG TAB (Status = Active) TAKE ONE-HALF TABLET BY MOUTH ONCE DAILY FOR DEPRESSION AND ANXIETY Rx# [id number] Last Released: 03/01/24 Qty/Days Supply: Rx Expiration Date: 02/28/25 Refills Remainin Indication: FOR MAJOR DEPRESSIVE DISORDER OUTPT CITALOPRAM HYDROBROMIDE 20MG TAB (Status = Discontinued) TAKE ONE-HALF TABLET BY MOUTH ONCE DAILY FOR MOOD Rx# [id number] Last Released: 12/20/23 Qty/Days Supply: Rx Expiration Date: 10/10/24 Refills Remainin Indication: FOR MAJOR DEPRESSIVE DISORDER Non-VA CYCLOBENZAPRINE HCL 10MG TAB TAKE ONE TABLET BY MOUTH TWICE DAILY Non-VA DOCUSATE NA 100MG CAP TAKE 1 CAPSULE BY MOUTH TWICE DAILY Non-VA FUROSEMIDE 20MG TAB TAKE ONE TABLET BY MOUTH ONCE DAILY OUTPT GLUCOSE 4GM CHEW TAB (Status = Active) CHEW ONE TABLET BY MOUTH EVERY DAY NEEDED FOR LOW BLOOD SUGAR Rx# [id number] Last Released: Supply: Rx Expiration Date: 04/03/25 Refills Remainin Indication: FOR LOW BLOOD SUGAR OUTPT INSULIN,ASPART,HUMAN 100 UNIT/ML INJ (Status = Active) INJECT 80 UNITS SUBCUTANEOUSLY EVERY DAY DIRECTED FOR USE WITH CONTINUOUS SUBCUTANEOUS INSULIN INFUSION DEVICE Rx# [id number] Last Released: 01/24/24 Qty/Days Supply: Rx Expiration Date: 04/17/24 Refills Remainin OUTPT KETOCONAZOLE 2% CREAM (Status = Active) APPLY A THIN LAYER TOPICALLY TWICE DAILY RASH APPLY TO AFFECTED AREAS ON FACE TWICE DAILY FOR 4 WEEKS, THEN NEEDED Rx# [id number] Last Released: 07/21/23 Qty/Days Supply: Rx Expiration Date: 07/13/24 Refills Remainin Indication: RASH OUTPT KETOCONAZOLE 2% SHAMPOO (Status = Active) SHAMPOO SMALL AMOUNT TOPICALLY TWICE A WEEK NEEDED APPLY FOR 8 WEEKS, THEN NEEDED Rx# [id number] Last Released: 07/21/23 Qty/Days Supply: 240/30 Rx Expiration Date: 07/13/24 Refills Remainin Indication: SCALP RASH OUTPT LEFLUNOMIDE 10MG TAB (Status = Active) TAKE ONE TABLET BY MOUTH ONCE DAILY FOR 14 DAYS, THEN TAKE TWO TABLETS ONCE DAILY Rx# [id number] Last Released: 03/26/24 Qty/Days Supply: 60/30 Rx Expiration Date: 03/26/25 Refills Remainin Non-VA LOSARTAN 100MG TAB TAKE ONE TABLET BY MOUTH DAILY OUTPT MULTIVIT/OPHTH AREDS2/LUTE/ZEAX CAP/TAB (Status = ) TAKE 1 CAPSULE BY MOUTH TWICE DAILY IN THE MORNING AND EVENING, WITH FOOD Rx# [id number] Last Released: 02/26/24 Qty/Days Supply: 120/60 Rx Expiration Date: 03/29/24 Refills Remainin Non-VA OMEPRAZOLE 20MG EC CAP TAKE 1 CAPSULE BY MOUTH EVERY DAY OUTPT OXYCODONE HCL 5MG TAB NOT SA (Status = ) TAKE ONE TABLET BY MOUTH EVERY 6 HOURS NEEDED FOR SEVERE PAIN Rx# [id number] Last Released: 02/21/24 Qty/Days Supply: 02/10 Rx Expiration Date: 03/19/24 Refills Remainin OUTPT OXYCODONE HCL 5MG/APAP 325MG TAB (Status = ) TAKE 1 TABLET BY MOUTH EVERY 6 HOURS NEEDED FOR PAIN Rx# [id number] Last Released: 01/01/24 Qty/Days Supply: 10/18 Rx Expiration Date: 01/31/24 Refills Remainin Non-VA PILOCARPINE HCL 5MG TAB TAKE ONE TABLET BY MOUTH TWICE DAILY Dec 04, 2020 Non-VA medication not recommended by VA provider. OUTPT PREDNISONE 10MG TAB (Status = Discontinued) TAKE ONE TABLET BY MOUTH ONCE DAILY Rx# [id number] Last Released: 12/13/23 Qty/Days Supply: 12/23 Rx Expiration Date: 01/07/24 Refills Remainin OUTPT PREDNISONE 1MG TAB (Status = Discontinued) TAKE FOUR TABLETS BY MOUTH ONCE DAILY Rx# [id number] Last Released: 12/29/23 Qty/Days Supply: 120/30 Rx Expiration Date: 10/16/24 Refills Remainin OUTPT PREDNISONE 1MG TAB (Status = Active) TAKE FOUR TABLETS BY MOUTH ONCE DAILY Rx# [id number] Last Released: 03/01/24 Qty/Days Supply: 12030 Rx Expiration Date: 02/26/25 Refills Remainin OUTPT TAMSULOSIN HCL 0.4MG CAP (Status = Discontinued) TAKE ONE CAPSULE BY MOUTH AT BEDTIME FOR ENLARGED PROSTATE Rx# [id number] Last Released: 10/11/23 Qty/Days Supply: Rx Expiration Date: 10/10/24 Refills Remainin Indication: FOR ENLARGED PROSTATE OUTPT TAMSULOSIN HCL 0.4MG CAP (Status = Active) TAKE TWO CAPSULES BY MOUTH AT BEDTIME Rx# [id number] Last Released: 01/24/24 Qty/Days Supply: Rx Expiration Date: 01/22/25 Refills Remainin OUTPT TOCILIZUMAB 162MG/0.9ML INJ SYR 0.9ML (Status = Active) INJECT 162MG SUBCUTANEOUSLY EVERY 2 WEEKS Rx# [id number] Last Released: 03/14/24 Qty/Days Supply: 08/16 Rx Expiration Date: 11/17/24 Refills Remainin SUPPLIES OUTPT NEEDLE 18G 1IN (Status = Active) USE 1 NEEDLE EVERY 7 DAYS FOR INJECTION Rx# [id number] Last Released: 07/21/23 Qty/Days Supply: Rx Expiration Date: 04/27/24 Refills Remainin OUTPT NEEDLE 23G 1IN (Status = Active) USE 1 NEEDLE EVERY 7 DAYS FOR INJECTION Rx# [id number] Last Released: 07/20/23 Qty/Days Supply: Rx Expiration Date: 04/27/24 Refills Remainin OUTPT SYRINGE 1ML LUER LOCK TIP (Status = Active) USE 1 SYRINGE EVERY 7 DAYS Rx# [id number] Last Released: 07/13/23 Qty/Days Supply: Rx Expiration Date: 04/27/24 Refills Remainin /thomas/ VEGA PENA DNP, TIMEKEEPING SUPERVISOR-C NURSE PRACTITIONER Signed: 04/04/2024 14:34 VEGA PENA [facility]
--- OUTSIDE RECORDS SUMMARY | 2024-06-14 13:21 | XMS_ITS | Encounter Summary ---
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 Name Role Phone TOÑO CAI Primary Care [...] [place] MEDICARE SUPPLEMEN MASTER PSUED O MEDEX BRONZ E Mar 19, 2004 [id number] HOLLIE SHEPHERD PATIENT [place] SUPPLEMEN MASTER MEDEX BRONZ E Mar 19, 2004 [id number] HOLLIE SHEPHERD [place] SUPPLEMEN MASTER MEDEX BRONZ E Mar 19, 2004 [id number] [phone] HOLLIE SHEPHERD PATIENT BCBS [facility] MEDICARE SUPPLEMEN MASTER PSUED O MEDEX BRONZ E Mar 19, 2004 [id number] HOLLIE SHEPHERD PATIENT MEDICARE (WNR) MEDICARE (M) PART B Mar 19, 2004 PART B [id number] [phone] CORA,HOLLIE ALD PATIENT MEDICARE (WNR) MEDICARE (M) PART B Mar 19, 2004 PART B [id number] HOLLIE SHEPHERD ALD PATIENT MEDICARE (WNR) MEDICARE (M) PART B Mar 19, 2004 PART B [id number] [phone] CORAHOLLIE SILVA ALD PATIENT MEDICARE (WNR) MEDICARE (M) PART A Feb 17, 2003 PART A [id number] [phone] CORAHOLLIE SILVA ALD PATIENT MEDICARE (WNR) MEDICARE (M) PART A Feb 17, 2003 PART A [id number] [phone] HOLLIE SHEPHERD ALD PATIENT MEDICARE (WNR) MEDICARE (M) PART A Feb 17, 2003 PART A [id number] HOLLIE SHEPHERD ALD PATIENT MEDICARE (WNR) MEDICARE (M) PART A Feb 17, 2003 PART A [id number] [phone] HOLLIE SHEPHERD ALD PATIENT MEDICARE (WNR) MEDICARE (M) PART B Feb 17, 2003 PART B [id number] HOLLIE SHEPHERD PATIENT MEDICARE (WNR) MEDICARE (M) PART A Feb 17, 2003 PART A [id number] HOLLIE SHEPHERD PATIENT MEDICARE (WNR) MEDICARE (M) PART B Feb 17, 2003 PART B [id number] [phone] HOLLIE SHEPHERD PATIENT Selected Encounter This section includes the information on record at [place] for the Encounter. Date/Time Encounter Type Encounter Description Reason Provider Source Jun 05, 2024 12:00 PM OFFICE O/P EST MOD 30 [facility] - IND ICD-10-CM F33.9 Major depressive disorder, recurrent, unspecified MEREDITH,GIHYUN E Encounter Template Text not used by [place] Assessments - Encounter Diagnoses This section includes the primary and secondary diagnoses documented for the Encounter. Date/Time Primary/Secondary Diagnosis Diagnosis Name Provider Source Jun 05, 2024 02:28 PM PRIMARY Major depressive disorder, recurrent, unspecified MEREDITH,GIHYUN [facility] Plan of Treatment: Future Appointments (+ 6 months) and Future Tests (+/- 45 days) The Plan of Treatment section includes future care activities for the patient from all [place] [facility] This section includes future appointments and future orders which are active, pending or scheduled. Future Appointments This section includes appointments that were scheduled to occur 6 months from the date of the Encounter, up to a maximum of 20 appointments. The data comes from all [place] treatment facilities. Appointment Date/Time Appointment Type Appointme nt Facility Name Jun 17, 2024 10:30 AM AMBULATORY - MEDICINE [facility] [place] [facility] Aug 06, 2024 10:00 AM AMBULATORY MEDICINE [place] [facility] [place] [facility] Oct 02, 2024 12:00 PM [facility] [place] [facility] Oct 02, 2024 12:00 PM [facility] Oct 03, 2024 02:00 PM AMBULATORY - MEDICINE [facility] [place] [facility] Nov 27, 2024 11:00 AM [facility] Active, Pending, and Scheduled Orders This section includes a listing of several types of active, pending, and scheduled orders, including clinic medications orders, diagnostic test orders, procedure orders and consult orders; where the start date of the order is 45 days before the date of the Encounter or 45 days after the date of theEncounter. The data comes from all [facility] facilities. Test Date/Time Test Type Test Details Facility Name May 29, 2024 06:36 PM Consult Order PHARMACY/N HM OUTPT Cons Attendant Child Activity's Choice [facility] Jun 10, 2024 11:25 AM Consult Order COMMUNITY CARE-UROLOGY Cons Attendant Child Activity's Choice [facility] Lab Results: +/- 30 days of [...] - Unit Interpretation Reference Range Comment Jun 04, 2024 10:27 AM [facility] HEMOGLOBIN A1C PANEL Specimen Type: BLOOD Comment: Values obtained from A1C measurements can vary. For atypical A1C assays, a reported value of 7.0 could actually be between 6.72 and 7.28 if measured by a reference method. A reported value of 9.0 could actually be between 8.73 and 9.27. Ref: http://www.ngs p.org/CAPdata. asp Ordering Provider: JUAN LUIS CAI F Report Released Date/Time: May 29, 2024 06:36 PM Reporting Lab: [facility] [place] [facility] [address] [address] Performing Lab: [place] [facility] [place] [facility] [address] [address] HEMOGLOBIN A1C 6.5 H 4.0-5.6 Jun 04, 2024 10:27 AM [facility] MICROALBUMIN CREATININE RATIO PANEL Specimen Type: URINE No comment entered. Ordering Provider: JUAN LUIS CAI F Report Released Date/Time: May 29, 2024 06:36 PM Reporting Lab: [place] [facility] [place] [address] [address] Performing Lab: [facility] [place] [facility] [address] [address] MICROALBUMIN/C REATININE RATIO 36.0 mg/g H 0-29.9 MICROALBUMIN,Q UANTITATIVE 2.8 mg/dL RR UNAVAIL CREATININE URINE 77.84 mg/dL Jun 04, 2024 10:27 AM [facility] TSH Specimen Type: SERUM No comment entered. Ordering Provider: JUAN LUIS CAI F Report Released Date/Time: May 29, 2024 06:36 PM Reporting Lab: [place] [facility] [place] [facility] [address] [facility] [address] Performing Lab: [facility] [place] [address] [address] TSH 1.78 u[IU]/mL 0.35-5.00 Jun 04, 2024 10:27 AM [facility] LIPID PANEL, NON FASTING Specimen Type: SERUM No comment entered. Ordering Provider: JUAN LUIS CAI F Report Released Date/Time: May 29, 2024 06:36 PM Reporting Lab: [facility] [address] [facility] [address] Performing Lab: [facility] [address] [address] CHOLESTEROL 151 mg/dL TRIGLYCERIDE 146 mg/dL 0-150 LDL calculated 73 mg/dL 0-129 CHOL/HDL 3.1 HDL CHOLESTEROL 49 mg/dL 40-60 Jun 04, 2024 10:27 AM [facility] LIVER FUNCTION Specimen Type: SERUM No comment entered. Ordering Provider: JUAN LUIS CAI F Report Released Date/Time: May 29, 2024 06:36 PM Reporting Lab: [facility] [address] [facility] [address] Performing Lab: [address] [address] PROTEIN,TOTAL 5.5 g/dL L 6.0-8.3 ALBUMIN 3.7 g/dL 3.5-5.0 ALKALINE PHOSPHATASE 78 U/L 40-150 AST 20 U/L 5-34 ALT 19 U/L BILIRUBIN, TOTAL 1.3 mg/dL H 0.2-1.2 BILIRUBIN, DIRECT 0.5 mg/dL 0-0.5 Jun 04, 2024 10:27 AM [facility] BASIC METABOLIC PANEL (non-fasting) Specimen Type: SERUM No comment entered. Ordering Provider: JUAN LUIS CAI F Report Released Date/Time: May 29, 2024 06:36 PM Reporting Lab: [facility] [address] [facility] [address] Performing Lab: [address] [address] UREA NITROGEN 19 mg/dL 7-25 GLUCOSE 187 mg/dL H 65-100 SODIUM 140 mmol/L 135-145 POTASSIUM 3.8 mmol/L 3.5-5.0 CHLORIDE 103 mmol/L 100-110 CO2 25 meq/L 20-30 CREATININE, Serum 0.97 mg/dL 0.50-1.40 eGFR(CKD-EPI 2020) 76 mL/min >60 May 08, 2024 11:24 AM [facility] TESTOSTERONE, TOTAL (WHV) Specimen Type: SERUM No comment entered. Ordering Provider: JUAN LUIS CAI Report Released Date/Time: Aug 11, 2023 11:52 AM Reporting Lab: [facility] [address] [facility] [address] Performing Lab: [address] [address] TESTOSTERONE, TOTAL (V) 44.33 ng/dL L 220.00-892 .00 May 08, 2024 11:24 AM [facility] LIPID PANEL FASTING Specimen Type: SERUM No comment entered. Ordering Provider: JUAN LUIS CAI Report Released Date/Time: Aug 11, 2023 11:52 AM Reporting Lab: [address] [address] Performing Lab: [address] [address] CHOLESTEROL 142 mg/dL TRIGLYCERIDE 179 mg/dL H 0-150 LDL calculated 64 mg/dL 0-129 CHOL/HDL 3.4 HDL CHOLESTEROL 42 mg/dL 40-60 May 08, 2024 11:24 AM [facility] LIVER FUNCTION Specimen Type: SERUM No comment entered. Ordering Provider: JUAN LUIS CAI Report Released Date/Time: Aug 11, 2023 11:52 AM Reporting Lab: [address] [address] Performing Lab: [address] [address] PROTEIN,TOTAL 5.5 g/dL L 6.0-8.3 ALBUMIN 3.6 g/dL 3.5-5.0 ALKALINE PHOSPHATASE 71 U/L 40-150 AST 20 U/L 5-34 ALT 24 U/L BILIRUBIN, TOTAL 1.1 mg/dL 0.2-1.2 May 08, 2024 11:24 AM [facility] CBC Specimen Type: BLOOD No comment entered. Ordering Provider: VANWAGNER,WILL MAY F Report Released Date/Time: Aug 11, 2023 11:52 AM Reporting Lab: [address] [address] Performing Lab: [facility] [address] [address] WBC 4.08 10*3/uL L 4.50-11.00 RBC 4.53 10*6/uL 4.23-5.66 HGB 13.1 g/dL 12.8-17 HCT 39.9 39.2-50.4 MCV 88.1 fL 82-99 MCHC 32.8 g/dL 30.8-35.1 PLT 130 10*3/uL L 140-360 RDW-CV 14.5 12.0-16.0 MCH 28.9 pg 26.2-32.6 May 08, 2024 11:24 AM [facility] BASIC METABOLIC PANEL (fasting) Specimen Type: SERUM No comment entered. Ordering Provider: JUAN LUIS CAI F Report Released Date/Time: Aug 11, 2023 11:52 AM Reporting Lab: [address] [address] Performing Lab: [address] [address] UREA NITROGEN 19 mg/dL 7-25 GLUCOSE 216 mg/dL H 65-100 SODIUM 142 mmol/L 135-145 POTASSIUM 3.5 mmol/L 3.5-5.0 CHLORIDE 107 mmol/L 100-110 CO2 25 meq/L 20-30 CREATININE, Serum 0.84 mg/dL 0.50-1.40 eGFR(CKD-EPI 2020) 85 mL/min >60 May 08, 2024 11:24 AM [facility] CBC AND DIFF (AUTO) Specimen Type: BLOOD No comment entered. Ordering Provider: JUAN LUIS CAI F Report Released Date/Time: Aug 11, 2023 11:52 AM Reporting Lab: [address] [address] Performing Lab: [address] [place] [address] WBC 4.08 10*3/uL L 4.50-11.00 RBC 4.53 [...] 10*3/uL 0.00-0.00 May 08, 2024 11:23 AM [facility] OSMOLALITY (SERUM) Specimen Type: SERUM No comment entered. Ordering Provider: ALLIE CUELLO Report Released Date/Time: Nov 27, 2023 07:39 PM Reporting Lab: [facility] [address] [facility] [address] Performing Lab: [facility] [address] [facility] [address] OSMOLALITY (SERUM) 299 280-300 May 08, 2024 11:23 AM [facility] CALCIUM Specimen Type: SERUM Comment: *GLUCOSE Not Performed: May 08, 2024@11:36 [place] [id number] *PERSONNEL SECURITY ASSISTANT Reason: Duplicate *UREA NITROGEN Not Performed: May 08, 2024@11:36 by [id number] *PERSONNEL SECURITY ASSISTANT Reason: Duplicate *CREATININE (eGFR 2020) Not Performed: May 08, 2024@11:36 by [id number] *PERSONNEL SECURITY ASSISTANT Reason: Duplicate *SODIUM Not Performed: May 08, 2024@11:36 by [id number] *PERSONNEL SECURITY ASSISTANT Reason: Duplicate *CHLORIDE Not Performed: May 08, 2024@11:36 by [id number] *PERSONNEL SECURITY ASSISTANT Reason: Duplicate *CO2 Not Performed: May 08, 2024@11:36 by [id number] *PERSONNEL SECURITY ASSISTANT Reason: Duplicate *POTASSIUM Not Performed: May 08, 2024@11:36 by [id number] *PERSONNEL SECURITY ASSISTANT Reason: Duplicate Ordering Provider: ALLIE CUELLO Report Released Date/Time: Nov 27, 2023 07:39 PM Reporting Lab: [facility] [address] [facility] [facility] [address] Performing Lab: [address] [address] CALCIUM 8.5 mg/dL 8.5-10.2 May 08, 2024 11:23 AM [facility] VITAMIN D (25-OH) Specimen Type: SERUM No comment entered. Ordering Provider: ALLIE CUELLO Report Released Date/Time: Nov 27, 2023 07:39 PM Reporting Lab: [facility] [address] [facility] [address] Performing Lab: [address] [address] VITAMIN D (25-OH) 46 ng/mL 20-50 Advance Directives: All historical and current Section [...] Jun 02, 2023 ADVANCE DIRECTIVE [facility] Encounter Notes: All associated encounter notes This section contains the clinical notes associated to the Encounter. Date/Time Encounter Note(s) Provider Source Jun 05, 2024 02:27 PM MENTAL HEALTH NOTE : LOCAL TITLE: TELEMENTAL HEALTH NOTE STANDARD TITLE: MENTAL HEALTH NOTE DATE OF NOTE: JUN 05, 2024@14:27 ENTRY DATE: JUN 05, 2024@14:27:56 AUTHOR: RADHA HARPER EXP COSIGNER: URGENCY: STATUS: COMPLETED Clinical services provided by Radha Harper MD, staff psychiatrist. Clinical services are being provided via [facility] from the [facility] to the [facility] through the [facility] Clinical Resource Hub. [place] was seen on JUN 05, 2024 by [facility] Clinical Resource Hub provider Radha Harper [...] see JLV for complete clinic note at: [facility] Service Delivery Method: CVT Length of Service: 25-30 minutes /thomas/ Radha Harper MD PSYCHIATRIST, PSYCHIATRY Signed: 06/05/2024 14:28 RADHA HARPER [facility]
--- OUTSIDE RECORDS SUMMARY | 2024-06-14 13:21 | XMS_ITS | Encounter Summary ---
Author Name [facility] Organization [facility] Address [address] [place] [id number] Care Team Providers Care Classroom Technology Coach Name Role Phone TOÑO CAI Primary Care [...] O MEDEX BRONZ E Mar 19, 2004 [id number] HOLLIE SHEPHERD [place]IENT [place] SUPPLEMEN MASTER MEDEX BRONZ E Mar 19, 2004 [id number] [phone] HOLLIE [place] SUPPLE[place] MASTER MEDEX BRONZ E Mar 19, 2004 [id number] [phone] HOLLIE SHEPHERD PATIENT BCBS [facility] MEDICARE SUPPLEMEN MASTER PSUED O MEDEX BRONZ E Mar 19, 2004 [id number] HOLLIE SHEPHERD PATIENT MEDICARE (WNR) MEDICARE (M) PART B Mar 19, 2004 PART B [id number] [phone] HOLLIE SHEPHERD PATIENT MEDICARE (WNR) MEDICARE (M) PART B Mar 19, 2004 PART B [id number] HOLLIE SHEPHERD ALD PATIENT MEDICARE (WNR) MEDICARE (M) PART B Mar 19, 2004 PART B [id number] HOLLIE SHEPHERD ALD PATIENT MEDICARE (WNR) MEDICARE (M) PART A Feb 17, 2003 PART A [id number] CORAHOLLIE SILVA ALD PATIENT MEDICARE (WNR) MEDICARE (M) PART A Feb 17, 2003 PART A [id number] [phone] CORAHOLLIE SILVA ALD PATIENT MEDICARE (WNR) MEDICARE (M) PART A Feb 17, 2003 PART A [id number] [phone] HOLLIE SHEPHERD PATIENT MEDICARE (WNR) MEDICARE (M) PART A Feb 17, 2003 PART A [id number] HOLLIE SHEPHERD PATIENT MEDICARE (WNR) MEDICARE (M) PART B Feb 17, 2003 PART B [id number] HOLLIE SHEPHERD PATIENT MEDICARE (WNR) MEDICARE (M) PART A Feb 17, 2003 PART A [id number] HOLLIE SHEPHERD PATIENT MEDICARE (WNR) MEDICARE (M) PART B Feb 17, 2003 PART B [id number] HOLLIE SHEPHERD PATIENT Selected Encounter This section includes the information on record at OR for the Encounter. Date/Time Encounter Type Encounter Description Reason Provider Source Apr 08, 2024 01:00 PM PROSTHETIC TRAING 1ST ENC PHYSICAL THERAPY ICD-10-CM M54.9 Dorsalgia, unspecified NAVJOT SOTO E Encounter Template Text not used by OR Assessments - Encounter Diagnoses This section includes the primary and secondary diagnoses documented for the Encounter. Date/Time Primary/Secondary Diagnosis Diagnosis Name Provider Source Apr 19, 2024 10:12 AM PRIMARY Dorsalgia, unspecified NAVJOT SOTO [facility] Plan of Treatment: Future Appointments (+ 6 months) and Future Tests (+/- 45 days) The Plan of Treatment section includes future care activities for the patient from all OR treatmentfacilities. This section includes future appointments and future orders which are active, pending or scheduled. Future Appointments This section includes appointments that were scheduled to occur 6 months from the date of the Encounter, up to a maximum of 20 appointments. The data comes from all [place] treatment facilities. Appointment Date/Time Appointment Type Appointme nt Facility Name Apr 12, 2024 09:45 AM AMBULATORY - MEDICINE [place] [facility] [place] [facility] Apr 16, 2024 10:00 AM AMBULATORY - REHAB MEDICIN [facility] [place] [facility] May 02, 2024 10:00 AM AMBULATORY - REHAB MEDICIN E [facility] [place] [facility] May 08, 2024 10:00 AM AMBULATORY - REHAB MEDICIN E [facility] [place] [facility] May 29, 2024 11:30 AM AMBULATORY - MEDICINE OR [facility] [place] [facility] Jun 05, 2024 12:00 PM AMBULATORY [place] [facility] Jun 05, 2024 12:00 PM AMBULATORY - PSYCHIATRY [facility] [place] [facility] Jun 17, 2024 10:30 AM AMBULATORY - MEDICINE OR [facility] [place] [facility] Aug 06, 2024 10:00 AM AMBULATORY - MEDICINE OR [facility] [place] [facility] Oct 02, 2024 12:00 PM AMBULATORY - [place] [facility] Oct 02, 2024 12:00 PM AMBULATORY - PSYCHIATRY [facility] [place] [facility] Oct 03, 2024 02:00 PM AMBULATORY - MEDICINE OR [facility] [place] [facility] Lab Results: +/- 30 [...] Range Comment May 08, 2024 11:24 AM [place] [facility] [place] [facility] TESTOSTERONE, TOTAL (WHV) Specimen Type: SERUM No comment entered. Ordering Provider: JACINTO CAI Report Released Date/Time: Aug 11, 2023 11:52 AM Reporting Lab: [facility] [address] [facility] [address] Performing Lab: [address] [address] TESTOSTERONE, TOTAL (WHV) 44.33 ng/dL L 220.00-892. 00 May 08, 2024 11:24 AM [facility] LIVER FUNCTION Specimen Type: SERUM No comment entered. Ordering Provider: JACINTO CAI Report Released Date/Time: Aug 11, 2023 11:52 AM Reporting Lab: [address] [address] Performing Lab: [address] [address] PROTEIN,TOTAL 5.5 g/dL L 6.0-8.3 ALBUMIN 3.6 g/dL 3.5-5.0 ALKALINE PHOSPHATASE 71 U/L 40-150 AST 20 U/L 5-34 ALT 24 U/L BILIRUBIN, TOTAL 1.1 mg/dL 0.2-1.2 May 08, 2024 11:24 AM [facility] CBC Specimen Type: BLOOD No comment entered. Ordering Provider: JACINTO CAI Report Released Date/Time: Aug 11, 2023 11:52 AM Reporting Lab: [address] [address] Performing Lab: [address] [address] WBC 4.08 10*3/uL L 4.50-11.00 RBC 4.53 10*6/uL 4.23-5.66 HGB 13.1 g/dL 12.8-17 HCT 39.9 39.2-50.4 MCV 88.1 fL 82-99 MCHC 32.8 g/dL 30.8-35.1 PLT 130 10*3/uL L 140-360 RDW-CV 14.5 12.0-16.0 MCH 28.9 pg 26.2-32.6 May 08, 2024 11:24 AM [facility] LIPID PANEL FASTING Specimen Type: SERUM No comment entered. Ordering Provider: JACINTO CAI Report Released Date/Time: Aug 11, 2023 11:52 AM Reporting Lab: [facility] [address] [facility] [address] Performing Lab: [address] [address] CHOLESTEROL 142 mg/dL TRIGLYCERIDE 179 mg/dL H 0-150 LDL calculated 64 mg/dL 0-129 CHOL/HDL 3.4 HDL CHOLESTEROL 42 mg/dL 40-60 May 08, 2024 11:24 AM [facility] BASIC METABOLIC PANEL (fasting) Specimen Type: SERUM No comment entered. Ordering Provider: JACINTO CAI Report Released Date/Time: Aug 11, 2023 11:52 AM Reporting Lab: [address] [address] Performing Lab: [address] [address] UREA NITROGEN 19 mg/dL 7-25 GLUCOSE 216 mg/dL H 65-100 SODIUM 142 mmol/L 135-145 POTASSIUM 3.5 mmol/L 3.5-5.0 CHLORIDE 107 mmol/L 100-110 CO2 25 meq/L 20-30 CREATININE, Serum 0.84 mg/dL 0.50-1.40 eGFR(CKD-EPI 2020) 85 mL/min >60 May 08, 2024 11:24 AM [facility] CBC AND DIFF (AUTO) Specimen Type: BLOOD No comment entered. Ordering Provider: JACINTO CAI Report Released Date/Time: Aug 11, 2023 11:52 AM Reporting Lab: [address] [address] Performing Lab: [address] [address] WBC 4.08 10*3/uL L 4.50-11.00 RBC 4.53 [...] 10*3/uL 0.00-0.00 May 08, 2024 11:23 AM [facility] OSMOLALITY (SERUM) Specimen Type: SERUM No comment entered. Ordering Provider: ALLIE CUELLO Report Released Date/Time: Nov 27, 2023 07:39 PM Reporting Lab: [facility] [address] [address] Performing Lab: [facility] [address] [facility] [address] OSMOLALITY (SERUM) 299 280-300 May 08, 2024 11:23 AM [facility] CALCIUM Specimen Type: SERUM Comment: *GLUCOSE Not Performed: May 08, 2024@11:36 by [id number] *CELL INSTALLER Reason: Duplicate *UREA NITROGEN Not Performed: May 08, 2024@11:36 by [id number] *CELL INSTALLER Reason: Duplicate *CREATININE (eGFR 2020) Not Performed: May 08, 2024@11:36 by [id number] *CELL INSTALLER Reason: Duplicate *SODIUM Not Performed: May 08, 2024@11:36 by [id number] *CELL INSTALLER Reason: Duplicate *CHLORIDE Not Performed: May 08, 2024@11:36 by [id number] *CELL INSTALLER Reason: Duplicate *CO2 Not Performed: May 08, 2024@11:36 by [id number] *CELL INSTALLER Reason: Duplicate *POTASSIUM Not Performed: May 08, 2024@11:36 by [id number] *CELL INSTALLER Reason: Duplicate Ordering Provider: ALLIE CUELLO Report Released Date/Time: Nov 27, 2023 07:39 PM Reporting Lab: [facility] [address] [facility] [address] Performing Lab: [address] [address] CALCIUM 8.5 mg/dL 8.5-10.2 May 08, 2024 11:23 AM [facility] VITAMIN D (25-OH) Specimen Type: SERUM No comment entered. Ordering Provider: ALLIE CUELLO Report Released Date/Time: Nov 27, 2023 07:39 PM Reporting Lab: [facility] [address] [address] Performing Lab: [facility] [address] VITAMIN D (25-OH) 46 ng/mL 20-50 Social [...] took place. Date/Time Current Smoking Status Comment [facility] Jun 05, 2023 11:00 AM [facility]CO [facility] Tobacco Use History This section includes a history of the smoking, or tobacco-related health factors, that were collected on or before the date of the Encounter. The data comes from the OR facility where the Encounter took place. Date/Time Smoking Status/Tobac co Use Comment Facility Jun 05, 2023 11:00 AM VA-TOBACCO QUIT 15 YRS OR MORE [facility] [place] [facility] Jun 06, 2022 01:00 PM VA-TOBACCO FORMER USER [facility] [place] [facility] Jun 06, 2022 01:00 PM VA-TOBACCO QUIT 15 YRS OR MORE [facility] [place] [facility] Jun 30, 2021 02:37 PM VA-TOBACCO FORMER USER [facility] [place] [facility] Jun 30, 2021 02:37 PM VA-TOBACCO QUIT 5 TO < 15 YRS [facility] [place] [facility] May 22, 2020 03:30 PM VA-TOBACCO NEVER USED [place] [facility] [place] [facility] May 08, 2018 02:03 PM VA-TOBACCO FORMER USER [facility] [place] [facility] May 08, 2018 02:03 PM VA-TOBACCO QUIT 15 YRS OR MORE [facility] [place] [facility] November 10, 2017 02:33 PM QUIT TOBACCO USE > 7 YEARS AGO [facility] [place] [facility] October 21, 2016 01:55 PM QUIT TOBACCO USE > 7 YEARS AGO [facility] [place] [facility] Sep 18, 2015 11:24 AM QUIT TOBACCO USE > 7 YEARS AGO stopped 50 years ago [facility] [place] [facility] May 19, 2005 08:01 AM HISTORY OF SMOKING [facility] [place] [facility] May 31, 2004 01:02 PM HISTORY OF SMOKING [facility] [place] [facility] Jun 04, 2003 07:57 AM HISTORY OF SMOKING [facility] [place] [facility] Jun 03, 2002 01:11 PM HISTORY OF SMOKING [facility] [place] [facility] Jun 03, 2002 01:11 PM QUIT TOBACCO USE > 7 YEARS AGO [facility] [place] [facility] Advance Directives: All historical [...] Source Jun 02, 2023 ADVANCE DIRECTIVE MARYANNETRICEJENNIFER Garcia [facility] Radiology Reports: +/- 30 days [...] comes from all OR treatment facilities. Date/Time Radiology Report Provider Source Apr 02, 2024 02:24 PM SHOULDER,COMPLETE(RIGHT): BEBO SHEPHERD [id number] -1940 M Ex Date: APR 02, 2024@14:24 Req Phys: TOÑO CAI Loc: CWM/NO/PACT 3 (Req'g Loc) Img Loc: [facility] Service: [place] [address] (Case 50 COMPLETE) SHOULDER,COMPLETE(RIGHT) (RAD Detailed) CPT:00108 Reason for Study: lateral pain after a fall last week. Clinical History: Report Status: Verified Date Reported: APR 02, 2024 Date Verified: APR 02, 2024 Document Review Specialist E-Sig:/ES/NAPOLEON ELLIOTT JR Report: Study: AP internally [...] Primary Interpreting Staff: NAPOLEON ELLIOTT JR, Radiologist (Document Review Specialist) /NAPOLEON SCHMITZ JR [facility] Encounter Notes: All associated encounter notes This section contains the clinical notes associated to the Encounter. Date/Time Encounter Note(s) Provider Source Apr 08, 2024 12:36 PM PHYSICAL THERAPY C ONSULT: LOCAL TITLE: PHYSICAL THERAPY CONSULT STANDARD TITLE: PHYSICAL THERAPY CONSULT DATE OF NOTE: APR 08, 2024@12:36 ENTRY DATE: APR 08, 2024@12:36:45 AUTHOR: NAVJOT SOTO COSIGNER: URGENCY: STATUS: COMPLETED Initial Evaluation date: Mar Treat Date: Mar Treatment #: eval Treatment time: 60min Diagnosis: Dorsalgia, unspecified(ICD-10-CM M54.9) Provider: Ned PT Treatment Precautions: Patient identified by full name and date of Verbal Consent given for therapist to put hands on patient SUBJECTIVE I have had fusion at 2 different times and I am fused L4-5 and L2-L3 after the second fusion I was doing ok, but then it slowly got worse over the years. Denies radicular symptoms. though has RA in the knees, seeing Rheumatology in [facility]. on a new medication from them, (Leflunomide) Mornings are worse, as the morning goes the pain reduces. Not doing any stretching Mowing lawn about an acre, ride on. Also have a tractor that I use here and there in the yard. Takes about 3 hours to mow my property and I usually feel it afterwards. Hand pain and stiffness I have pain right now. Mostly the right shoulder. I was wrapped up in my blanket and tried to get out of bed, Unfortunately I was too quick and my legs were still tied up and then I fell on the right shoulder and it is quite painful at this point. I have a cream I was given to put on my back but I cant really reach that area to be able to put it on. PMH: Chief complaint/ailment/injury: MICHAEL/Date of onset: ( x ) Gradual ( ) Rapid Since onset: ( x ) Worsening ( ) Improving ( ) Staying the same Are your symptoms: ( ) Constant ( x ) Intermittent- mornings are bad Prior PT care for this condition? ( ) No ( ) Yes Previous Medical Interventions: ( x ) Xray ( ) MRI/CTscan ( x ) Injections- bfore the surgeries (cortizone) (going to go to [facility] to see about an injection cortizone) ( x ) Other:surgery C/O: ( x ) Pain: ( x ) ROM: ( x ) Strength: ( ) Sensation: Pain rating on 0-10 VNS: Current: 4/10 Average: 4/10 At best: 4/10 At worst: 10/10 getting up in the morning and bending and lifting Location: centrally located Lumbar Description of pain: ( x )aching ( )throbbing ( )sharp ( )shooting ( )stabbing ( )burning ( )cramping ( )electric Alleviating factors:go and sit down with pillow behind back and elevate feet in the recliner and I will sit for about an hour and then I get up and I feel a little dizzy but I don't have the pain as bad as when I am getting up from bed, and much better than when I sat down. get up in the midddle of the night and take a couple [address]. ( ) Position: Aggravating factors: bending, getting up in the morning, walking can't go very far(also get out of breath) I even get out of breath from walking to the mailbox about 200ft each way. Are you currently working? [employer]( daughter and son in law assist) [x]Part-time Current Exercise Habits: working on the property and woodworking Baseline function: [x]Independent ADL's/IADL's - Decline in ADL's/IADL's or recreation?: [x]Yes slower when pain flares. Patient's Goals: 1)bend over without so much pain. 2) Active problems - Computerized Problem List is the source for the followin. Elevated PSA 2. Aortic Valve Disorder (SCT 8228541) 3. Cerebrovascular disease 4. Chronic recurrent major depressive disorder 5. Insulin pump present 6. Hypertension 7. Family history of cancer of colon 8. Testicular hypofunction 9. Osteoporosis 10. Major depressive disorder 11. RA - Rheumatoid arthritis 12. History of colonic polyp 13. Diverticular disease of colon 14. Adjustment disorder 15. Hemorrhoids 16. Polymyalgia Rheumatica 17. Microscopic Hematuria 18. Rosacea 19. Hypertension (SNOMED CT 43961758) 20. Spinal Stenosis * 21. Hyperlipidemia (SNOMED CT 08739719) 22. Osteoarthritis * 23. Lower Back Pain * 24. Vertigo 25. Diabetes mellitus type 2 (SNOMED CT 83749253) 26. Gastroesophageal Reflux Disorder Include data from 04/09/2023 to 04/08/2024 04/08/2024 12:37 CONFIDENTIAL IMAGING REPORTS SUMMARY pg. 1 CORABEBO Nisa [id number] : 1940 II - Imaging Impression (max 1 occurrence) 02/12/24 Impression: Normal lumbar lordosis is maintained. Vertebral bodies maintain normal heights. There is extensive anterior and posterior fusion with posterior transpedicular screws and rods and L2-L3 through L5-S1 interbody spacers. 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 No hardware failure. Medical Screening Questionnaire/RED FLAGS: [x]Recent Trauma fell out bed [x]Age (50+) []Hx of Cancer []Fever/chills/night sweats []Unexplained weight loss []Recent infection []Immunosuppression []Night pain []Saddle anesthesia [x]Bowel/bladder dysfunction retention/frequency - seeing GE doc. []LE neurological deficit OBJECTIVE: Posture: Lumbar Posture: WNLs:___ Increased Lordosis ____ Decreased Lordosis _x___ Lateral Shift : Yes: (Direction:___) No_x__ Pelvic Symmetry: ASIS:= PSIS:= Iliac Crest:= Functional Mobility: I Lumbar AROM: Flexion(60-90):45 Extension(30):15 L SB(25):15 pain central R SB(25): 10 pain right L Rot(15-30): 50% R Rot(15-30): 50% Neurological: Deep Tendon Reflexes:(0,1+,2+,3+,4+) 1. Quadriceps (L3): L: 0 R:0 2. Achilles (L5-S1): L: 0 R:0 pt noted never had reflexes Neurological [UQ=upper quadrant, LQ=lower quadrant] [x]Sensation, Light Touch: [x]UQ: [x]WNL []Diminished []Absent [x]LQ: [x]WNL []Diminished []Absent Resisted Tests: (_/5) Trunk Flexion : :4-p Trunk Extension : :4 Trunk Rotation : L:4-p R:4-p Hip Flexion (L2-L4): L:3+P R:3+ Hip Adduction: L:4- R:4- Hip Internal Rotation : L:3+ R:3+ Hip External Rotation : L:3+ R:3+ Knee Extension(L2-L4): L:3+ R:3+ Knee Flexion: L:3+ R:3+ Ankle Dorsiflexion(L4): L:4- R:4- Ankle Plantarflexion (S1-2) L:3+ R:3+ Ankle Eversion (S1): L:4- R:4- Great Toe Extension(L5): L:4- R:4- Hip Abduction (L5-S1): L:3+ R:3+ Hip Extension(L5-S2): L:3+ R:3+ Range of Motion: Hip flexion(120): L:100 R:100 Hip Internal rotation(30): L:5 R:5 Hip external rotation(30): L:20 R:20 Hip Extension(20): L:5 R:5 Muscle Length/Flexibility: You Test: Left: Normal Limited___sig__ Right: Normal Limited___sig Hortencia's Test: Left: Normal Limited__sig___ Right: Normal Limited__sig Hamstring (90-90): Left: Normal Limited__30___ Degrees Right: Normal Limited_30 Degrees GLuteal/piriformis: Left: Normal Limited__sig___ Right: Normal Limited____sig____ Palpation: Guarding in the lumbar region. right Greater Trochantor bursitis, likely secondary at this point. left GLuteals (mod and min: tight and tender) Joint Mobility Assessment:Lumbar fusions noted L4-5 L2-3 and not forced with testing today, noted significant paraspinal gaurding. Lumbar Special Tests Sidelying FAIR5 (for piriformis syndrome) (sn=0.88 sp=0.83): - Slump Test (sn=0.84 sp=0.83):- Treatment Provided: Patient education was provided for all aspects of care during this clinical encounter. THERAPEUTIC EXERCISE: Instruction in therex & issued [employer] ([employer]) HEP:Access Code: [email or web address] URL: [email or web address] Date: 04/08/2024 Prepared by: Navjot Soto Exercises - Seated Transversus Abdominis Bracing - [...] - 3 sets - 30 secs hold EDU on hot pack use and issued large hot/cold pack on this date. verbalized understanding on use and care. Assessment:Patient presents to Physical Therapy today with reports C/O:central low back pain, mostly in the morning, with bending and as the day progresses, if doing more laborious activities it can worsen, sitting reduces pain though not immediately. Signs/sx consistent w/:mechanical low back pain, secondary to inactivity resulting in decreased muscle strength and flexibility, furthered by the old spinal surgery that at this time appears intact, based on imaging and no abnormal movement in lumbar region with testing today. The patient endorses inactivity, or when active more seated activities at this time. Patient will benefit from skilled PT to improve Strength and flexibility to improve QOL. Physical Therapy Problem List [x]Increased Pain [x]Decreased ADL's/IADL's [x]Impaired gait & mobility []Impaired balance [x]Reduced muscle performance/strength [x]Decreased soft tissue mobility/flexibility [x]Decreased ROM [x]Impaired joint mobility/integrity [x]Postural deficits [x]Knowledge deficit for home exercises Rehab Potential: []Good [x]Fair []Poor potential Barriers: chronicity of symptoms, multiple comorbidities Goals, within: [x]6-8sessions [x]Perform household ADL's to include bending with pain < 3/10. [x]Increase walking tolerance to <200 ft in order to Ambulate to and from the mailbox independently with pain < 3/10. [x]Patient will improve LE strength to overall 4-/5 for improved ability to ascend/descend 1 flight of stairs independently with pain < 3/10. [x]Perform 15-20 minutes of low-impact cardio 3x/week, for improved cardiovascular response to daily activities. [x]Pt will increase supine 90/90 by 10-20 degrees to demonstrate increase in HS length. [x]Pt will decrease prone passive knee flexion restriction to demonstrate improved hip flexor/quad length to minimal restriction. [x]Pt will be independent with HEP for increased LE flexibility and optimal progress with PT. PLAN: Pt to be seen 1x/week for 6-8 weeks POC to include: [x]Low impact cardio: [x]Nustep [x]Recumbent elliptical [x]Manual: [x]STM/DTM [x]IASTM [x]Therex: [x]Progressive Core [x]Progressive LQ [x]Lumbar flex [x]LQ flex [x]Neuro Re-education: [x]Static [x]Dynamic [x]Education: [x]Posture [x]Bodymechanics [x]Self-care strategies [x]Modalities(PRN): [x]Heat/Ice [NO]Mechanical traction [x]Biofreeze /thomas/ NAVJOT SOTO PT, DPT PHYSICAL THERAPIST Signed: 04/08/2024 16:05 NAVJOT SOTO [facility] [place] [facility]
--- OUTSIDE RECORDS SUMMARY | 2024-06-14 13:21 | XMS_ITS | Encounter Summary ---
Author Name [facility] [place] [facility] [place] Address [address] [place] [address] Care Team Providers Care Licensed Prosthetist Name Role Phone TOÑO CAI Primary Care [...] O MEDEX BRONZ E Mar [birth year], 2004 [id number] HOLLIE SHEPHERD PATIENT [place] MEDICARE SUPPLEMEN MASTER MEDEX BRONZ E Mar 19, 2004 [id number] HOLLIE SHEPHERD PATIENT [place] SUPPLEMEN MASTER MEDEX BRONZ E Mar 19, 2004 [id number] HOLLIE SHEPHERD PATIENT BCBS [facility] MEDICARE SUPPLEMEN MASTER PSUED O MEDEX BRONZ E Mar 19, 2004 [id number] HOLLIE SHEPHERD PATIENT MEDICARE (WNR) MEDICARE (M) PART B Mar 19, 2004 PART B [id number] HOLLIE SHEPHERD PATIENT MEDICARE (WNR) MEDICARE (M) PART B Mar 19, 2004 PART B [id number] HOLLIE SHEPHERD ALD PATIENT MEDICARE (WNR) MEDICARE (M) PART B Mar 19, 2004 PART B [id number] HOLLIE SHEPHERD ALD PATIENT MEDICARE (WNR) MEDICARE (M) PART A Feb 17, 2003 PART A [id number] [phone] HOLLIE SHEPHERD ALD PATIENT MEDICARE (WNR) MEDICARE (M) PART A Feb 17, 2003 PART A [id number] HOLLIE SHEPHERD ALD PATIENT MEDICARE (WNR) MEDICARE (M) PART A Feb 17, 2003 PART A [id number] HOLLIE SHEPHERD ALD PATIENT MEDICARE (WNR) MEDICARE (M) PART A Feb 17, 2003 PART A [id number] HOLLIE SHEPHERD PATIENT MEDICARE (WNR) MEDICARE (M) PART B Feb 17, 2003 PART B [id number] [phone] HOLLIE SHEPHERD PATIENT MEDICARE (WNR) MEDICARE (M) PART A Feb 17, 2003 PART A [id number] HOLLIE SHEPHERD PATIENT MEDICARE (WNR) MEDICARE (M) PART B Feb 17, 2003 PART B [id number] HOLLIE SHEPHERD PATIENT Selected Encounter This section includes the information on record at CT for the Encounter. Date/Time Encounter Type Encounter Description Reason Pro vider Source Mar 26, 2024 12:00 AM Outpatient Encounter EVENT (HISTORICAL) IHE Encounter Template Text not used by CT Plan of Treatment: Future Appointments (+ 6 months) and Future Tests (+/- 45 days) The Plan of Treatment section includes future care activities for the patient from all [place] treatmentfacilities. This section includes future appointments and [...] - MEDICINE [facility] [place] [facility] Apr 04, 2024 02:00 PM AMBULATORY - MEDICINE [facility] [place] [facility] Apr 08, 2024 01:00 PM AMBULATORY - REHAB MEDICIN E [facility] [place] [facility] Apr 12, 2024 09:45 AM AMBULATORY - MEDICINE [facility] [place] [facility] Apr 16, 2024 10:00 AM AMBULATORY - REHAB MEDICIN E [facility] [place] [facility] May 02, 2024 10:00 AM AMBULATORY - REHAB MEDICIN E [facility] [place] [facility] May 08, 2024 10:00 AM AMBULATORY - REHAB MEDICIN E [facility] [place] [facility] May 29, 2024 11:30 AM AMBULATORY - MEDICINE [facility] [place] [facility] Jun 05, 2024 12:00 PM AM[place] [facility] Jun 05, 2024 12:00 PM AMBULATORY - PSYCHIATRY [facility] [place] [facility] Jun 17, 2024 10:30 AM AMBULATORY - MEDICINE [facility] [place] [facility] Aug 06, 2024 10:00 AM AMBULATORY - MEDICINE [facility] Immunizations: All administered on the encounter date This section contains immunizations associated to the Encounter. Immunization Series Date Issued Reaction Comments INFLUENZA, UNSPECIFIED FORMULATION Mar 26, 2024 Social History: Smoking Status (Most current) and [...] took place. Date/Time Current Smoking Status Comment [facility] Jun 05, 2023 11:00 AM [facility] Tobacco Use History This section includes a history of the smoking, or tobacco-related health factors, that were collected on or before the date of the Encounter. The data comes from the [place] facility where the Encounter took place. Date/Time Smoking Status/Tobac co Use Comment Facility Jun 05, 2023 11:00 AM VA-TOBACCO QUIT [address] [facility] [place] [facility] Jun 06, 2022 01:00 PM VA-TOBACCO FORMER USER [facility] [place] [facility] Jun 06, 2022 01:00 PM VA-TOBACCO QUIT 15 YRS OR MORE [facility] [place] [facility] Jun 30, 2021 02:37 PM VA-TOBACCO FORMER USER [facility] [place] [facility] Jun 30, 2021 02:37 PM VA-TOBACCO QUIT 5 TO < 15 YRS [facility] [place] [facility] May 22, 2020 03:30 PM VA-TOBACCO NEVER USED CT [facility] [place] [facility] May 08, 2018 02:03 PM VA-TOBACCO FORMER USER [facility] [place] [facility] May 08, 2018 02:03 PM VA-TOBACCO QUIT 15 YRS OR MORE [facility] [place] [facility] November 10, 2017 02:33 PM QUIT TOBACCO USE > 7 YEARS AGO [facility] [place] [facility] October 21, 2016 01:55 PM QUIT TOBACCO USE > 7 YEARS AGO [facility] [place] [facility] Sep 18, 2015 11:24 AM QUIT TOBACCO USE > 7 YEARS AGO stopped 50 years ago [facility] [place] [facility] May 19, 2005 08:01 AM HISTORY OF SMOKING [facility] [place] [facility] May 31, 2004 01:02 PM HISTORY OF SMOKING [facility] [place] [facility] Jun 04, 2003 07:57 AM HISTORY OF SMOKING [facility] [place] [facility] Jun 03, 2002 01:11 PM HISTORY OF SMOKING [facility] [place] [facility] Jun 03, 2002 01:11 PM QUIT TOBACCO USE > [address] [facility] [place] [facility] Advance Directives: All historical and current Section Date Range: From patient's date of to the date document was created. This section includes ALL of a patient's completed or amended VA Advance and Rescinded Directives. The entries below indicate that a directive exists for the patient, but an actual copy is not included with this document. The data comes from all VA facilities. Date Advance Directives Provider Source Jun 02, 2023 ADVANCE DIRECTIVE JENNIFER QUIROS [facility] Radiology Reports: +/- 30 days of the [...] 02, 2024 02:24 PM SHOULDER,COMPLETE(RIGHT): BEBO SHEPHERD [id number] -[id number] M Ex Date: APR 02, 2024@14:24 Req Phys: TOÑO CAI Loc: CWM/NO/PACT 3 (Req'g Loc) Img Loc: [facility] 1 Service: [place] [address] (Case 50 COMPLETE) SHOULDER,COMPLETE(RIGHT) (RAD Detailed) CPT:26832 Reason for Study: lateral pain after a fall last week. Clinical History: Report Status: Verified Date Reported: APR 02, 2024 Date Verified: APR 02, 2024 House Supervisor E-Sig:/ES/NAPOLEON ELLIOTT JR Report: Study: AP internally [...] Primary Interpreting Staff: NAPOLEON ELLIOTT JR, Radiologist (House Supervisor) /KELLI ELLIOTT,NAPOLEON Zelaya JR [facility]
--- OUTSIDE RECORDS SUMMARY | 2024-06-14 13:22 | XMS_ITS | Encounter Summary ---
Author Name [facility] [place] Address [address] [place] [id number] Care Team Providers Care Laboratory Worker Name Role Phone TOÑO PETER Primary Care [...] [place] MED[place]ARE SUPPLEMEN MASTER PSUED O MEDEX BRON E Mar 19, 2004 [id number] HOLLIE SHEPHERD PATIENT BCBS [place] MEDICARE SUPPLEMEN MASTER MEDEX BRONZ E Mar 19, 2004 [id number] HOLLIE SHEPHERD PATIENT [place] MED[place] SUPPLEMEN MASTER MEDEX BRONZ E Mar 19, 2004 [id number] [phone] HOLLIE SHEPHERD PATIENT BCBS [facility] MEDICARE SUPPLEMEN MASTER PSUED O MEDEX BRONZ E Mar 19, 2004 [id number] [id number] [id number] HOLLIE SHEPHERD PATIENT MEDICARE (WNR) MEDICARE (M) PART B Mar 19, 2004 PART B [id number] [phone] HOLLIE SHEPHERD PATIENT MEDICARE (WNR) MEDICARE (M) PART B Mar 19, 2004 PART B [id number] HOLLIE SHEPHERD PATIENT MEDICARE (WNR) MEDICARE (M) PART B Mar 19, 2004 PART B [id number] [phone] HOLLIE SHEPHERD ALD PATIENT MEDICARE (WNR) MEDICARE (M) PART A Feb 17, 2003 PART A [id number] HOLLIE SHEPHERD ALD PATIENT MEDICARE (WNR) MEDICARE (M) PART A Feb 17, 2003 PART A [id number] HOLLIE SHEPHERD ALD PATIENT MEDICARE (WNR) MEDICARE (M) PART A Feb 17, 2003 PART A [id number] [phone] HOLLIE SHEPHERD PATIENT MEDICARE (WNR) MEDICARE (M) PART A Feb 17, 2003 PART A [id number] HOLLIE SHEPHERD PATIENT MEDICARE (WNR) MEDICARE (M) PART B Feb 17, 2003 PART B [id number] HOLLIE SHEPHERD PATIENT MEDICARE (WNR) MEDICARE (M) PART A Feb 17, 2003 PART A [id number] HOLLIE SHEPHERD PATIENT MEDICARE (WNR) MEDICARE (M) PART B Feb 17, 2003 PART B [id number] HOLLIE SHEPHERD PATIENT Selected Encounter This section includes the information on record at [place] for the Encounter. Date/Time Encounter Type Encounter Description Reason Pro vider Source Apr 28, 2024 10:47 PM Outpatient Encounter ADMIN PAT ACTIVTIES (MASNONCT) IHE Encounter Template Text not used by [place] Plan of Treatment: Future Appointments (+ 6 months) and Future Tests (+/- 45 days) The Plan of Treatment section includes future care activities for the patient from all [place] treatmentfacilities. This section includes future appointments and [...] E [facility] [place] [facility] May 08, 2024 10:00 AM AMBULATORY - REHAB MEDICIN E [facility] [place] [facility] May 29, 2024 11:30 AM AM[facility]ULATORY [facility] [place] [facility] Jun 05, 2024 12:00 PM [facility] [place] [facility] Jun 05, 2024 12:00 PM AMBULATORY - PSYCHIATRY [facility] [place] [facility] Jun 17, 2024 10:30 AM AMBULATORY [facility]ICINE [facility] [place] [facility] Aug 06, 2024 10:00 AM AMBULATORY [facility] MEDICINE [facility] [place] [facility] Oct 02, 2024 12:00 PM [facility] [place] [facility] Oct 02, 2024 12:00 PM AMBULATORY - PSYCHIATRY [facility] [place] [facility] Oct 03, 2024 02:00 PM AMBULATORY - MEDICINE [facility] [place] [facility] Active, Pending, and Scheduled Orders This section includes a listing of several types of active, pending, and scheduled orders, including clinic medications orders, diagnostic test orders, procedure orders and consult orders; where the start date of the order is 45 days before the date of the Encounter or 45 days after the date of theEncounter. The data comes from all [place] treatment facilities. Test Date/Time Test Type Test Details Facility Name May 29, 2024 06:36 PM Consult Order PHARMACY/N HM OUTPT Cons [facility] [place] [facility] Jun 10, 2024 11:25 AM Consult Order COMMUNITY CARE-UROLOGY Cons [facility] [place] [facility] Lab Results: +/- 30 days [...] Range Comment May 08, 2024 11:24 AM [facility] [place] [facility] TESTOSTERONE, TOTAL ([facility]) Specimen Type: SERUM No comment entered. Ordering Provider: JACINTO PETER Report Released Date/Time: Aug 11, 2023 11:52 AM Reporting Lab: [address] [address] [facility]forming [facility] [address] [address] TESTOSTERONE, TOTAL ([facility]) 44.33 ng/dL L 220.00-892. 00 May 08, 2024 11:24 AM [facility] LIVER FUNCTION Specimen Type: SERUM No comment entered. Ordering Provider: JACINTO PETER Report Released Date/Time: Aug 11, 2023 11:52 AM Reporting Lab: [address] [address] Performing Lab: [address] [address] PROTEIN,TOTAL 5.5 g/dL L 6.0-8.3 ALBUMIN 3.6 g/dL 3.5-5.0 ALKALINE PHOSPHATASE 71 U/L 40-150 AST 20 U/L 5-34 ALT 24 U/L BILIRUBIN, TOTAL 1.1 mg/dL 0.2-1.2 May 08, 2024 11:24 AM [facility] CBC Specimen Type: BLOOD No comment entered. Ordering Provider: JACINTO PETER Report Released Date/Time: Aug 11, 2023 11:52 AM Reporting Lab: [address] [address] Performing Lab: [address] [address] WBC 4.08 10*3/uL L 4.50-11.00 RBC 4.53 10*6/uL 4.23-5.66 HGB 13.1 g/dL 12.8-17 HCT 39.9 39.2-50.4 MCV 88.1 fL 82-99 MCHC 32.8 g/dL 30.8-35.1 PLT 130 10*3/uL L 140-360 RDW-CV 14.5 12.0-16.0 MCH 28.9 pg 26.2-32.6 May 08, 2024 11:24 AM [facility] LIPID PANEL FASTING Specimen Type: SERUM No comment entered. Ordering Provider: JACINTO PETER Report Released Date/Time: Aug 11, 2023 11:52 AM Reporting Lab: [facility] [address] [facility] [address] Performing Lab: [address] [address] CHOLESTEROL 142 mg/dL TRIGLYCERIDE 179 mg/dL H 0-150 LDL calculated 64 mg/dL 0-129 CHOL/HDL 3.4 HDL CHOLESTEROL 42 mg/dL 40-60 May 08, 2024 11:24 AM [facility] BASIC METABOLIC PANEL (fasting) Specimen Type: SERUM No comment entered. Ordering Provider: JACINTO PETER Report Released Date/Time: Aug 11, 2023 11:52 AM Reporting Lab: [facility] [address] [facility] [address] Performing Lab: [address] [address] UREA NITROGEN 19 mg/dL 7-25 GLUCOSE 216 mg/dL H 65-100 SODIUM 142 mmol/L 135-145 POTASSIUM 3.5 mmol/L 3.5-5.0 CHLORIDE 107 mmol/L 100-110 CO2 25 meq/L 20-30 CREATININE, Serum 0.84 mg/dL 0.50-1.40 eGFR(CKD-EPI 2020) 85 mL/min >60 May 08, 2024 11:24 AM [facility] CBC AND DIFF (AUTO) Specimen Type: BLOOD No comment entered. Ordering Provider: JACINTO PETER Report Released Date/Time: Aug 11, 2023 11:52 AM Reporting Lab: [address] [address] Performing Lab: [address] [address] WBC 4.08 10*3/uL L 4.50-11.00 RBC 4.53 [...] 10*3/uL 0.00-0.00 May 08, 2024 11:23 AM [facility] OSMOLALITY (SERUM) Specimen Type: SERUM No comment entered. Ordering Provider: ALLIE CUELLO Report Released Date/Time: Nov 27, 2023 07:39 PM Reporting Lab: [facility] [address] [facility] [address] Performing Lab: [facility] [address] [facility] [address] OSMOLALITY (SERUM) 299 280-300 May 08, 2024 11:23 AM [facility] CALCIUM Specimen Type: SERUM Comment: *GLUCOSE Not Performed: May 08, 2024@11:36 by [id number] *ACCOUNT COLLECTOR Reason: Duplicate *UREA NITROGEN Not Performed: May 08, 2024@11:36 by [id number] *ACCOUNT COLLECTOR Reason: Duplicate *CREATININE (eGFR 2020) Not Performed: May 08, 2024@11:36 by [id number] *ACCOUNT COLLECTOR Reason: Duplicate *SODIUM Not Performed: May 08, 2024@11:36 by [id number] *ACCOUNT COLLECTOR Reason: Duplicate *CHLORIDE Not Performed: May 08, 2024@11:36 by [id number] *ACCOUNT COLLECTOR Reason: Duplicate *CO2 Not Performed: May 08, 2024@11:36 by [id number] *ACCOUNT COLLECTOR Reason: Duplicate *POTASSIUM Not Performed: May 08, 2024@11:36 by [id number] *ACCOUNT COLLECTOR Reason: Duplicate Ordering Provider: ALLIE CUELLO Report Released Date/Time: Nov 27, 2023 07:39 PM Reporting Lab: [facility] [address] [facility] [address] Performing Lab: [address] [address] CALCIUM 8.5 mg/dL 8.5-10.2 May 08, 2024 11:23 AM [facility] VITAMIN D (25-OH) Specimen Type: SERUM No comment entered. Ordering Provider: ALLIE CUELLO Report Released Date/Time: Nov 27, 2023 07:39 PM Reporting Lab: [facility] [address] [facility] [address] Performing Lab: [address] [address] VITAMIN D (25-OH) 46 ng/mL 20-50 Social History: Smoking Status (Most current) and Tobacco Use (All prior to encounter date) This section includes the most current, and the historical, smoking and tobacco- related health factors from the [place] facility where the Encounter took place. Current Smoking Status This section includes the most current smoking, or tobacco-related health factor, from the [place] facility where the Encounter took place. Date/Time Current Smoking Status Comment Facil ity Jun 05, 2023 11:00 AM VA-TOBACCO FORMER USER [facility] Tobacco Use History This section includes a history of the smoking, or tobacco-related health factors, that were collected on or before the date of the Encounter. The data comes from the [place] facility where the Encounter took place. Date/Time Smoking Status/Tobac co Use Comment Facility Jun 05, 2023 11:00 AM VA-TOBACCO QUIT 15 YRS OR MORE [facility] [place] [facility] Jun 06, 2022 01:00 PM VA-TOBACCO FORMER USER [facility] [place] [facility] Jun 06, 2022 01:00 PM VA-TOBACCO QUIT 15 YRS OR MORE [facility] [place] [facility] Jun 30, 2021 02:37 PM VA-TOBACCO FORMER USER [facility] [place] [facility] Jun 30, 2021 02:37 PM VA-TOBACCO QUIT 5 TO < 15 YRS [place] [facility] [facility] May 22, 2020 03:30 PM VA-TOBACCO NEVER USED [place] [facility] [facility] May 08, 2018 02:03 PM VA-TOBACCO FORMER USER [facility] [place] [facility] May 08, 2018 02:03 PM VA-TOBACCO QUIT 15 YRS OR MORE [facility] [place] [facility] November 10, 2017 02:33 PM QUIT TOBACCO USE > 7 YEARS AGO [facility] [place] [facility] October 21, 2016 01:55 PM QUIT TOBACCO USE > 7 YEARS AGO [facility] [place] [facility] Sep 18, 2015 11:24 AM QUIT TOBACCO USE > 7 YEARS AGO stopped 50 years ago [facility] [place] [facility] May 19, 2005 08:01 AM HISTORY OF SMOKING [facility] [place] [facility] May 31, 2004 01:02 PM HISTORY OF SMOKING [facility] [place] [facility] Jun 04, 2003 07:57 AM HISTORY OF SMOKING [facility] [place] [facility] Jun 03, 2002 01:11 PM HISTORY OF SMOKING [facility] [place] [facility] Jun 03, 2002 01:11 PM QUIT TOBACCO USE > 7 YEARS AGO [place] [facility] [facility] Advance Directives: All historical and [...] Jun 02, 2023 ADVANCE DIRECTIVE JENNIFER QUIROS [facility] Radiology Reports: +/- 30 [...] 02, 2024 02:24 PM SHOULDER,COMPLETE(RIGHT): BEBO SHEPHERD [id number] -1940 M Exm Date: APR 02, 2024@14:24 Req Phys: TOÑO PETER Loc: CWM/NO/PACT 3 (Req'g Loc) Img Loc: [facility] 1 Service[facility] [place] [address] (Case 50 COMPLETE) SHOULDER,COMPLETE(RIGHT) (RAD Detailed) CPT:48228 Reason for Study: lateral pain after a fall last week. Clinical History: Report Status: Verified Date Reported: APR 02, 2024 Date Verified: APR 02, 2024 Diesel Plant Operator E-Sig:/ES/NAPOLEON ELLIOTT JR Report: Study: AP internally [...] Primary Interpreting Staff: NAPOLEON ELLIOTT JR, Radiologist (Diesel Plant Operator) /NAPOLEON SCHMITZ JR [facility] Encounter Notes: All associated encounter notes This section contains the clinical notes associated to the Encounter. Date/Time Encounter Note(s) Provider Source Apr 28, 2024 10:47 PM PHARMACY NOTE: LOCAL TITLE: PHARMACY CUSTOMER CARE MEDICATION RENEWAL STANDARD TITLE: PHARMACY NOTE DATE OF NOTE: APR 28, 2024@22:47 ENTRY DATE: APR 28, 2024@22:47:57 AUTHOR: BENJAMIN BOYD COSIGNER: URGENCY: STATUS: COMPLETED Date: Apr Division: [facility] referred by Pharmacy Call Center for medication renewal: Non-controlled/maintenance medication Medications requested: [id number] MULTIVIT/OPHTH AREDS2/LUTE/ZEAX CAP/TAB Defer to primary care provider To be mailed . Please review and renew if appropriate. *This note was generated by [facility] Customer Care. If you have any questions or need assistance, do not contact this author. Please refer all questions to your local, on-site pharmacy departments. /thomas/ BENJAMIN BOYD [facility] Signed: 04/28/2024 22:48 Receipt Acknowledged By: 04/29/2024 08:44 /thomas/ Toño Peter PA-C STAFF PHYSICIAN BUSINESS DEVELOPMENT CONSULTANT 04/30/2024 07:56 /thomas/ RADHA MATOS, MSN, RN, CNL PRIMARY CARE TEAM NURSE for BENJAMIN STEWART [facility]
--- OUTSIDE RECORDS SUMMARY | 2024-06-14 13:22 | XMS_ITS | Encounter Summary ---
Author Name [facility] [place] Organization [facility] [place] Address [address] [place] [id number] Care Team Providers Care Supervisor Dry Paste Name Role Phone TOÑO PETER Primary Care [...] O MEDEX BRON E Mar 19, 2004 [id number] HOLLIE SHEPHERD PATIENT [place] MED[place] SUPPLEMEN MASTER MEDEX BRONZ E Mar 19, 2004 [id number] HOLLIE SHEPHERD PATIENT [place] SUPPLEMEN MASTER MEDEX BRONZ E Mar 19, 2004 [id number] [phone] HOLLIE SHEPHERD PATIENT BCBS [facility] MEDICARE SUPPLEMEN MASTER PSUED O MEDEX BRONZ E Mar 19, 2004 [id number] [phone] HOLLIE SHEPHERD PATIENT MEDICARE (WNR) MEDICARE (M) PART B Mar 19, 2004 PART B [id number] HOLLIE SHEPHERD PATIENT MEDICARE (WNR) MEDICARE (M) PART B Mar 19, 2004 PART B [id number] HOLLIE SHEPHERD PATIENT MEDICARE (WNR) MEDICARE (M) PART B Mar 19, 2004 PART B [id number] [phone] HOLLIE SHEPHERD ALD PATIENT MEDICARE (WNR) MEDICARE (M) PART A Feb 17, 2003 PART A [id number] [phone] HOLLIE SHEPHERD ALD PATIENT MEDICARE (WNR) MEDICARE (M) PART A Feb 17, 2003 PART A [id number] [phone] HOLLIE SHEPHERD ALD PATIENT MEDICARE (WNR) MEDICARE (M) PART A Feb 17, 2003 PART A [id number] HOLLIE SHEPHERD PATIENT MEDICARE (WNR) MEDICARE (M) PART A Feb 17, 2003 PART A [id number] HOLLIE SHEPHERD PATIENT MEDICARE (WNR) MEDICARE (M) PART B Feb 17, 2003 PART B [id number] [phone] HOLLIE SHEPHERD PATIENT MEDICARE (WNR) MEDICARE (M) PART A Feb 17, 2003 PART A [id number] HOLLIE SHEPHERD PATIENT MEDICARE (WNR) MEDICARE (M) PART B Feb 17, 2003 PART B [id number] HOLLIE SHEPHERD PATIENT Selected Encounter This section includes the information on record at [place] for the Encounter. Date/Time Encounter Type Encounter Description Reason Pro vider Source Jun 03, 2024 02:00 PM Outpatient Encounter ADMIN PAT ACTIVTIES (MASNONCT) IHE Encounter Template Text not used by [place] Plan of Treatment: Future Appointments (+ 6 months) and Future Tests (+/- 45 days) The Plan of Treatment section includes future care activities for the patient from all [place] treatmentfacilities. This section includes future appointments and future orders which are active, pending or scheduled. Future Appointments This section includes appointments that were scheduled to occur 6 months from the date of the Encounter, up to a maximum of 20 appointments. The data comes from all [place] treatment facilities. Appointment Date/Time Appointment Type Appointme nt Facility Name Jun 05, 2024 12:00 PM AMBULATORY - [place] [facility] Jun 05, 2024 12:00 PM AMBULATORY [facility]AT[facility] [place] [facility] Jun 17, 2024 10:30 AM AMBULATORY [facility] MEDICINE [facility] [place] [facility] Aug 06, 2024 10:00 AM AMBULATORY - MEDICINE [facility] [place] [facility] Oct 02, 2024 12:00 PM AMBULATORY [place]ATRY [place] [facility] Oct 02, 2024 12:00 PM AMBULATORY - PS[facility]IATRY [facility] [place] [facility] Oct 03, 2024 02:00 PM AMBULATORY - MEDICINE [facility] [place] [facility] Nov 27, 2024 11:00 AM [facility] Active, Pending, and Scheduled Orders This section includes a listing of several types of active, pending, and scheduled orders, including clinic medications orders, diagnostic test orders, procedure orders and consult orders; where the start date of the order is 45 days before the date of the Encounter or 45 days after the date of theEncounter. The data comes from all [place] treatment facilities. Test Date/Time Test Type Test Details Facility Name May 29, 2024 06:36 PM Consult Order PHARMACY/N HM OUTPT Cons [facility]ils Developer[facility] Jun 10, 2024 11:25 AM Consult Order COMMUNITY CARE-UROLOGY Cons [facility] Developer's Choice [facility] Lab Results: +/- 30 days of the encounter This section includes the Chemistry and Hematology Lab Results on record with [place] for the patient. Radiology Reports and Pathology Reports are provided separately, in subsequent sections. Lab Results This section contains the Chemistry/Hematology Results that were resulted 30 days before or 30 daysafter the date of the Encounter. Date/Time Source Result Type Result - Unit Interpretation Reference Range Comment Jun 04, 2024 10:27 AM [facility] HEMOGLOBIN A1C PANEL Specimen Type: BLOOD Comment: Values obtained from A1C measurements can vary. For atypical A1C assays, a reported value of 7.0 could actually be between 6.72 and 7.28 if measured by a reference method. A reported value of 9.0 could actually be between 8.73 and 9.27. Ref: http://www.ngs p.org/CAPdata. asp Ordering Provider: JUAN LUIS PETER F Report Released Date/Time: May 29, 2024 06:36 PM Reporting Lab: [facility] [address] [facility] [address] Performing Lab: [facility] [address] [address] HEMOGLOBIN A1C 6.5 H 4.0-5.6 Jun 04, 2024 10:27 AM [facility] MICROALBUMIN CREATININE RATIO PANEL Specimen Type: URINE No comment entered. Ordering Provider: JUAN LUIS PETER F Report Released Date/Time: May 29, 2024 06:36 PM Reporting Lab: [address] [address] Performing Lab: [facility] [address] MICROALBUMIN/C REATININE RATIO 36.0 mg/g H 0-29.9 MICROALBUMIN,Q UANTITATIVE 2.8 mg/dL RR UNAVAIL CREATININE URINE 77.84 mg/dL Jun 04, 2024 10:27 AM [facility] LIPID PANEL, NON FASTING Specimen Type: SERUM No comment entered. Ordering Provider: JUAN LUIS PETER F Report Released Date/Time: May 29, 2024 06:36 PM Reporting Lab: [address] [address] Performing Lab: [facility] [address] [address] CHOLESTEROL 151 mg/dL TRIGLYCERIDE 146 mg/dL 0-150 LDL calculated 73 mg/dL 0-129 CHOL/HDL 3.1 HDL CHOLESTEROL 49 mg/dL 40-60 Jun 04, 2024 10:27 AM [facility] TSH Specimen Type: SERUM No comment entered. Ordering Provider: JUAN LUIS PETER F Report Released Date/Time: May 29, 2024 06:36 PM Reporting Lab: [facility] [address] [address] Performing Lab: [address] [address] TSH 1.78 u[IU]/mL 0.35-5.00 Jun 04, 2024 10:27 AM [facility] BASIC METABOLIC PANEL (non-fasting) Specimen Type: SERUM No comment entered. Ordering Provider: JUAN LUIS PETER F Report Released Date/Time: May 29, 2024 06:36 PM Reporting Lab: [address] [address] Performing Lab: [address] [address] UREA NITROGEN 19 mg/dL 7-25 GLUCOSE 187 mg/dL H 65-100 SODIUM 140 mmol/L 135-145 POTASSIUM 3.8 mmol/L 3.5-5.0 CHLORIDE 103 mmol/L 100-110 CO2 25 meq/L 20-30 CREATININE, Serum 0.97 mg/dL 0.50-1.40 eGFR(CKD-EPI 2020) 76 mL/min >60 Jun 04, 2024 10:27 AM [facility] LIVER FUNCTION Specimen Type: SERUM No comment entered. Ordering Provider: JUAN LUIS PETER F Report Released Date/Time: May 29, 2024 06:36 PM Reporting Lab: [address] [address] Performing Lab: [address] [address] PROTEIN,TOTAL 5.5 g/dL L 6.0-8.3 ALBUMIN 3.7 g/dL 3.5-5.0 ALKALINE PHOSPHATASE 78 U/L 40-150 AST 20 U/L 5-34 ALT 19 U/L BILIRUBIN, TOTAL 1.3 mg/dL H 0.2-1.2 BILIRUBIN, DIRECT 0.5 mg/dL 0-0.5 May 08, 2024 11:24 AM [facility] TESTOSTERONE, TOTAL (WHV) Specimen Type: SERUM No comment entered. Ordering Provider: JUAN LUIS PETERM F Report Released Date/Time: Aug 11, 2023 11:52 AM Reporting Lab: [address] [address] Performing Lab: [address] [address] TESTOSTERONE, TOTAL (WHV) 44.33 ng/dL L 220.00-892 .00 May 08, 2024 11:24 AM [facility] LIVER FUNCTION Specimen Type: SERUM No comment entered. Ordering Provider: JUAN LUIS PETER [facility] F Report Released Date/Time: Aug 11, 2023 11:52 AM Reporting Lab: [address] [address] Performing Lab: [address] [address] PROTEIN,TOTAL 5.5 g/dL L 6.0-8.3 ALBUMIN 3.6 g/dL 3.5-5.0 ALKALINE PHOSPHATASE 71 U/L 40-150 AST 20 U/L 5-34 ALT 24 U/L BILIRUBIN, TOTAL 1.1 mg/dL 0.2-1.2 May 08, 2024 11:24 AM [facility] BASIC METABOLIC PANEL (fasting) Specimen Type: SERUM No comment entered. Ordering Provider: JUAN LUIS PETER F Report Released Date/Time: Aug 11, 2023 11:52 AM Reporting Lab: [address] [address] Performing Lab: [address] [address] UREA NITROGEN 19 mg/dL 7-25 GLUCOSE 216 mg/dL H 65-100 SODIUM 142 mmol/L 135-145 POTASSIUM 3.5 mmol/L 3.5-5.0 CHLORIDE 107 mmol/L 100-110 CO2 25 meq/L 20-30 CREATININE, Serum 0.84 mg/dL 0.50-1.40 eGFR(CKD-EPI 2020) 85 mL/min >60 May 08, 2024 11:24 AM [facility] CBC Specimen Type: BLOOD No comment entered. Ordering Provider: JUAN LUIS PETER F Report Released Date/Time: Aug 11, 2023 11:52 AM Reporting Lab: [facility] [address] [facility] [address] Performing Lab: [address] [address] WBC 4.08 10*3/uL L 4.50-11.00 RBC 4.53 10*6/uL 4.23-5.66 HGB 13.1 g/dL 12.8-17 HCT 39.9 39.2-50.4 MCV 88.1 fL 82-99 MCHC 32.8 g/dL 30.8-35.1 PLT 130 10*3/uL L 140-360 RDW-CV 14.5 12.0-16.0 MCH 28.9 pg 26.2-32.6 May 08, 2024 11:24 AM [facility] LIPID PANEL FASTING Specimen Type: SERUM No comment entered. Ordering Provider: JUAN LUIS PETER F Report Released Date/Time: Aug 11, 2023 11:52 AM Reporting Lab: [address] [address] Performing Lab: [address] [address] CHOLESTEROL 142 mg/dL TRIGLYCERIDE 179 mg/dL H 0-150 LDL calculated 64 mg/dL 0-129 CHOL/HDL 3.4 HDL CHOLESTEROL 42 mg/dL 40-60 May 08, 2024 11:24 AM [facility] CBC AND DIFF (AUTO) Specimen Type: BLOOD No comment entered. Ordering Provider: JUAN LUIS PETER F Report Released Date/Time: Aug 11, 2023 11:52 AM Reporting Lab: [facility] [address] [facility] [address] Performing Lab: [address] [address] WBC 4.08 10*3/uL L 4.50-11.00 RBC 4.53 [...] 10*3/uL 0.00-0.00 May 08, 2024 11:23 AM [facility] OSMOLALITY (SERUM) Specimen Type: SERUM No comment entered. Ordering Provider: ALLIE CUELLO Report Released Date/Time: Nov 27, 2023 07:39 PM Reporting Lab: [facility] [address] [facility] [address] Performing Lab: [facility] [address] [facility] [address] OSMOLALITY (SERUM) 299 280-300 May 08, 2024 11:23 AM [facility] CALCIUM Specimen Type: SERUM Comment: *GLUCOSE Not Performed: May 08, 2024@11:36 by [id number] *FOOD AND NUTRITION SERVICES ASSISTANT Reason: Duplicate *UREA NITROGEN Not Performed: May 08, 2024@11:36 by [id number] *FOOD AND NUTRITION SERVICES ASSISTANT Reason: Duplicate *CREATININE (eGFR 2020) Not Performed: May 08, 2024@11:36 by [id number] *FOOD AND NUTRITION SERVICES ASSISTANT Reason: Duplicate *SODIUM Not Performed: May 08, 2024@11:36 by [id number] *FOOD AND NUTRITION SERVICES ASSISTANT Reason: Duplicate *CHLORIDE Not Performed: May 08, 2024@11:36 by [id number] *FOOD AND NUTRITION SERVICES ASSISTANT Reason: Duplicate *CO2 Not Performed: May 08, 2024@11:36 by [id number] *FOOD AND NUTRITION SERVICES ASSISTANT Reason: Duplicate *POTASSIUM Not Performed: May 08, 2024@11:36 by [id number] *FOOD AND NUTRITION SERVICES ASSISTANT Reason: Duplicate Ordering Provider: ALLIE CUELLO Report Released Date/Time: Nov 27, 2023 07:39 PM Reporting Lab: [facility] [address] [facility] [address] Performing Lab: [address] [address] CALCIUM 8.5 mg/dL 8.5-10.2 May 08, 2024 11:23 AM [facility] VITAMIN D (25-OH) Specimen Type: SERUM No comment entered. Ordering Provider: ALLIE CUELLO Report Released Date/Time: Nov 27, 2023 07:39 PM Reporting Lab: [facility] [address] [facility] [address] Performing Lab: [facility] [address] VITAMIN D (25-OH) 46 ng/mL 20-50 Social History: Smoking Status (Most current) and Tobacco Use (All prior to encounter date) This section includes the most current, and the historical, smoking and tobacco- related health factors from the [place] facility where the Encounter took place. Current Smoking Status This section includes the most current smoking, or tobacco-related health factor, from the [place] facility where the Encounter took place. Date/Time Current Smoking Status Comment Facil ity Jun 05, 2023 11:00 AM [facility] Tobacco Use History This section includes a history of the smoking, or tobacco-related health factors, that were collected on or before the date of the Encounter. The data comes from the [place] facility where the Encounter took place. Date/Time Smoking Status/Tobac co Use Comment Facility Jun 05, 2023 11:00 AM VA-TOBACCO QUIT 15 YRS OR MORE [facility] [place] [facility] Jun 06, 2022 01:00 PM VA-TOBACCO FORMER USER [facility] [place] [facility] Jun 06, 2022 01:00 PM VA-TOBACCO QUIT 15 YRS OR MORE [facility] [place] [facility] Jun 30, 2021 02:37 PM VA-TOBACCO FORMER USER [facility] [place] [facility] Jun 30, 2021 02:37 PM VA-TOBACCO QUIT 5 TO < 15 YRS [facility] [place] [facility] May 22, 2020 03:30 PM VA-TOBACCO NEVER USED [facility] [place] [facility] May 08, 2018 02:03 PM VA-TOBACCO FORMER USER [facility] [place] [facility] May 08, 2018 02:03 PM VA-TOBACCO QUIT 15 YRS OR MORE [facility] [place] [facility] November 10, 2017 02:33 PM QUIT TOBACCO USE > 7 YEARS AGO [facility] [place] [facility] October 21, 2016 01:55 PM QUIT TOBACCO USE > 7 YEARS AGO [facility] [place] [facility] Sep 18, 2015 11:24 AM QUIT TOBACCO USE > 7 YEARS AGO stopped 50 years ago [facility] [place] [facility] May 19, 2005 08:01 AM HISTORY OF SMOKING [facility] [place] [facility] May 31, 2004 01:02 PM HISTORY OF SMOKING [facility] [place] [facility] Jun 04, 2003 07:57 AM HISTORY OF SMOKING [facility] [place] [facility] Jun 03, 2002 01:11 PM HISTORY OF SMOKING [facility] [place] [facility] Jun 03, 2002 01:11 PM QUIT TOBACCO USE > 7 YEARS AGO [facility] [place] [facility] Advance Directives: All historical and current Section [...] Jun 02, 2023 ADVANCE DIRECTIVE JENNIFER QUIROS [facility] Encounter Notes: All associated encounter notes This section contains the clinical notes associated to the Encounter. Date/Time Encounter Note(s) Provider Source Jun 03, 2024 04:32 PM ADDENDUM: LOCAL TITLE: Addendum STANDARD TITLE: ADDENDUM DATE OF NOTE: JUN 03, 2024@16:32:12 ENTRY DATE: JUN 03, 2024@16:32:13 AUTHOR: TOÑO PETER COSIGNER: URGENCY: STATUS: COMPLETED Med ordered without refills for window. Please ask him to visit lab when he comes to pharmacy. /thomas/ Toño Peter PA-C STAFF PHYSICIAN TOE POUNDER Signed: 06/03/2024 16:32 Receipt Acknowledged By: 06/07/2024 11:43 /thomas/ MICHELLE CARRILLO TAMMY === --- Original Document --- 06/03/24 [facility]3]: SCHEDULING ADMINISTRATION: Patient Demographics Patient Name: BEBO SHEPHERD Patient Primary Phone: [phone] Patient Primary Address: [address] [place] [address] Patient : 1940 Patient Age: 84 Caller/Recipient Relation to Patient: Self Caller Name: BEBO SHEPHERD Administrative Administrative Note Reason: Other Administrative Note Comments: Patient states, '' He would like a call back on his cell phone # in regards to the insulin, outside paperwork was sent over last week from stave cutting supervisor, he is on his last vial, which should last 9 days.'' IMPORTANT: This note was created by [facility] Contact Center staff. Please do not alert the staff member by adding them as a signer for future communications. Alerts are not monitored by this user. /thomas/ SHANTI CALLAHAN [facility]3] AMSA Signed: 06/03/2024 14:00 Receipt Acknowledged By: 06/04/2024 09:01 /thomas/ VIJAYA KENDALL RN REGISTERED NURSE 06/03/2024 16:33 /thomas/ Toño Peter PA-C STAFF PHYSICIAN TOE POUNDER 06/04/2024 ADDENDUM STATUS: COMPLETED Spoke to [place] and relayed message per provider. [place]more understood and agreed to plan. /thomas/ VIJAYA KENDALL RN REGISTERED NURSE Signed: 06/04/2024 09:01 TOÑO PETER [facility] [place] [facility] Jun 03, 2024 02:00 PM ADMINISTRATIVE NOTE: LOCAL TITLE: [facility]3]: SCHEDULING ADMINISTRATION STANDARD TITLE: ADMINISTRATIVE NOTE DATE OF NOTE: JUN 03, 2024@14:00:45 ENTRY DATE: JUN 03, 2024@14:00:45 AUTHOR: SHANTI PATE COSIGNER: URGENCY: STATUS: COMPLETED CCC: SCHEDULING ADMINISTRATION Has ADDENDA Patient Demographics Patient Name: BEBO SHEPHERD Patient Primary Phone: [phone] Patient Primary [address]: [address] [place] [address] Patient : 1940 Patient Age: 84 Caller/Recipient Relation to Patient: Self Caller Name: BEBO SHEPHERD Administrative Administrative Note Reason: Other Administrative Note Comments: Patient states, '' He would like a call back on his cell phone # in regards to the insulin, outside paperwork was sent over last week from stave cutting supervisor, he is on his last vial, which should last 9 days.'' IMPORTANT: This note was created by [facility] Clinical Contact Center staff. Please do not alert the staff member by adding them as a signer for future communications. Alerts are not monitored by this user. /benny [id number] [facility]3] AMSA Signed: 06/03/2024 14:00 Receipt Acknowledged By: 06/04/2024 09:01 /benny KENDALL RN REGISTERED NURSE 06/03/2024 16:33 /benny Peter PA-C STAFF PHYSICIAN TOE POUNDER 06/03/2024 ADDENDUM STATUS: COMPLETED Med ordered without refills for window. Please ask him to visit lab when he comes to pharmacy. /thomas/ Toño Peter PA-C STAFF PHYSICIAN TOE POUNDER Signed: 06/03/2024 16:32 Receipt Acknowledged By: * AWAITING SIGNATURE * MICHELLE CARRILLO 06/04/2024 ADDENDUM STATUS: COMPLETED Spoke to [place]more and relayed message per provider. [place]more understood and agreed to plan. /es/ VIJAYA KENDALL RN REGISTERED NURSE Signed: 06/04/2024 09:01 SHANTI PATE [facility]
--- OUTSIDE RECORDS SUMMARY | 2024-06-14 13:22 | XMS_ITS ---
Author Name [facility] [place] [facility] [place] Address [address] [place] [id number] Care Team Providers Care Stage Set Designer Name Role Phone TOÑO PETER Primary Care [...] Relationship to Policy Wen [place] MED[place] SUPPLEMEN MASTER PSUED O MEDEX BRONZ E Mar 19, 2004 [id number] HOLLIE SHEPHERD [place]IENT [place] SUPPLEMEN MASTER MEDEX BRONZ E Mar 19, 2004 [id number] [phone] HOLLIE SHEPHER[place] SUPPLEMEN MASTER MEDEX BRONZ E Mar 19, 2004 [id number] [phone] HOLLIE SHEPHERD PATIENT BCBS [facility] MEDICARE SUPPLEMEN MASTER PSUED O MEDEX BRONZ E Mar 19, 2004 [id number] HOLLIE SHEPHERD PATIENT MEDICARE (WNR) MEDICARE (M) PART B Mar 19, 2004 PART B [id number] HOLLIE SHEPHERD PATIENT MEDICARE (WNR) MEDICARE (M) PART B Mar 19, 2004 PART B [id number] [phone] HOLLIE SHEPHERD ALD PATIENT MEDICARE (WNR) MEDICARE (M) PART B Mar 19, 2004 PART B [id number] [phone] CORAHOLLIE SILVA ALD PATIENT MEDICARE (WNR) MEDICARE (M) PART A Feb 17, 2003 PART A [id number] CORAHOLLIE SILVA ALD PATIENT MEDICARE (WNR) MEDICARE (M) PART A Feb 17, 2003 PART A [id number] CORAHOLLIE SILVA ALD PATIENT MEDICARE (WNR) MEDICARE (M) PART A Feb 17, 2003 PART A [id number] [phone] HOLLIE SHEPHERD PATIENT MEDICARE (WNR) MEDICARE (M) PART A Feb 17, 2003 PART A [id number] [phone] HOLLIE SHEPHERD PATIENT MEDICARE (WNR) MEDICARE (M) PART B Feb 17, 2003 PART B [id number] HOLLIE SHEPHERD PATIENT MEDICARE (WNR) MEDICARE (M) PART A Feb 17, 2003 PART A [id number] HOLLIE SHEPHERD PATIENT MEDICARE (WNR) MEDICARE (M) PART B Feb 17, 2003 PART B [id number] HOLLIE SHEPHERD PATIENT Selected Encounter This section includes the information on record at [place] for the Encounter. Date/Time Encounter Type Encounter Description Reason Provider Source May 08, 2024 10:00 AM THERAPEUTIC EXERCISES OCCUPATIONAL THERAPY ICD-10-CM M75.41 Impingement syndrome of right shoulder CYNTHIA MCLEAN Mikey Encounter Template Text not used by [place] Assessments - Encounter Diagnoses This section includes the primary and secondary diagnoses documented for the Encounter. Date/Time Primary/Secondary Diagnosis Diagnosis Name Provider Source May 21, 2024 04:32 PM PRIMARY Impingement syndrome of right shoulder CYNTHIA MCLEAN [facility] Plan of Treatment: Future Appointments (+ 6 months) and Future Tests (+/- 45 days) The Plan of Treatment section includes future care activities for the [facility] [place] [facility]. This section includes future appointments [...] 29, 2024 11:30 AM AMBULATORY - MEDICINE [place] [facility] [place] [facility] Jun 05, 2024 12:00 PM [facility] Jun 05, 2024 12:00 PM AMBULATORY PSYCHIATRY [place] [facility] [place] [facility] Jun 17, 2024 10:30 AM AMBULATORY MEDICINE [place] [facility] [place] [facility] Aug 06, 2024 10:00 AM AMBULATORY MEDICINE [place] [facility] [place] [facility] Oct 02, 2024 12:00 PM AMBULATORY [place] [facility] Oct 02, 2024 12:00 PM AMBULATORY PSYCHIATRY [place] [facility] [place] [facility] Oct 03, 2024 02:00 PM AMBULATORY MEDICINE [facility] [place] [facility] Active, Pending, and Scheduled Orders This section includes a listing of several types of active, pending, and scheduled orders, including clinic medications orders, diagnostic test orders, procedure orders and consult orders; where the start date of the order is 45 days before the date of the Encounter or 45 days after the date of theEncounter. The data comes from all [facility]. Test Date/Time Test Type Test Details Facility Name May 29, 2024 06:36 PM Consult Order PHARMACY/N HM OUTPT Cons Floor [facility] [place] [facility] [place] [facility] Jun 10, 2024 11:25 AM Consult Order COMMUNITY CARE-UROLOGY Cons Floor [facility] [place] [facility] Lab Results: +/- 30 days of the [...] Range Comment Jun 04, 2024 10:27 AM [facility] HEMOGLOBIN A1C PANEL Specimen Type: BLOOD Comment: [...] May 29, 2024 06:36 PM Reporting Lab: [facility] [address] [facility] [address] Performing Lab: [address] [address] HEMOGLOBIN A1C 6.5 H 4.0-5.6 Jun 04, 2024 10:27 AM [facility] MICROALBUMIN CREATININE RATIO PANEL Specimen Type: URINE No comment entered. Ordering Provider: JUAN LUIS PETER F Report Released Date/Time: May 29, 2024 06:36 PM Reporting Lab: [address] [address] Performing Lab: [facility] [address] [facility] [address] MICROALBUMIN/C REATININE RATIO 36.0 mg/g H 0-29.9 MICROALBUMIN,Q UANTITATIVE 2.8 mg/dL RR UNAVAIL CREATININE URINE 77.84 mg/dL Jun 04, 2024 10:27 AM [facility] LIPID PANEL, NON FASTING Specimen Type: SERUM No comment entered. Ordering Provider: JUAN LUIS PETER F Report Released Date/Time: May 29, 2024 06:36 PM Reporting Lab: [facility] [address] [facility] [address] Performing Lab: [address] [address] CHOLESTEROL 151 mg/dL TRIGLYCERIDE 146 mg/dL 0-150 LDL calculated 73 mg/dL 0-129 CHOL/HDL 3.1 HDL CHOLESTEROL 49 mg/dL 40-60 Jun 04, 2024 10:27 AM [facility] TSH Specimen Type: SERUM No comment entered. Ordering Provider: JUAN LUIS PETER F Report Released Date/Time: May 29, 2024 06:36 PM Reporting Lab: [facility] [address] [facility] [address] Performing Lab: [address] [address] TSH 1.78 u[IU]/mL 0.35-5.00 Jun 04, 2024 10:27 AM [facility] BASIC METABOLIC PANEL (non-fasting) Specimen Type: SERUM No comment entered. Ordering Provider: JUAN LUIS PETER F Report Released Date/Time: May 29, 2024 06:36 PM Reporting Lab: [address] [address] Performing Lab: [address] [address] UREA NITROGEN 19 mg/dL 7-25 GLUCOSE 187 mg/dL H 65-100 SODIUM 140 mmol/L 135-145 POTASSIUM 3.8 mmol/L 3.5-5.0 CHLORIDE 103 mmol/L 100-110 CO2 25 meq/L 20-30 CREATININE, Serum 0.97 mg/dL 0.50-1.40 eGFR(CKD-EPI 2020) 76 mL/min >60 Jun 04, 2024 10:27 AM [facility] LIVER FUNCTION Specimen Type: SERUM No comment entered. Ordering Provider: JUAN LUIS PETER F Report Released Date/Time: May 29, 2024 06:36 PM Reporting Lab: [address] [address] Performing Lab: [address] [address] PROTEIN,TOTAL 5.5 g/dL L 6.0-8.3 ALBUMIN 3.7 g/dL 3.5-5.0 ALKALINE PHOSPHATASE 78 U/L 40-150 AST 20 U/L 5-34 ALT 19 U/L BILIRUBIN, TOTAL 1.3 mg/dL H 0.2-1.2 BILIRUBIN, DIRECT 0.5 mg/dL 0-0.5 May 08, 2024 11:24 AM [facility] TESTOSTERONE, TOTAL (WHV) Specimen Type: SERUM No comment entered. Ordering Provider: JUAN LUIS PETER F Report Released Date/Time: Aug 11, 2023 11:52 AM Reporting Lab: [address] [address] Performing Lab: [address] [address] TESTOSTERONE, TOTAL (V) 44.33 ng/dL L 220.00-892 .00 May 08, 2024 11:24 AM [facility] LIVER FUNCTION Specimen Type: SERUM No comment entered. Ordering Provider: JUAN LUIS PETERM F Report Released Date/Time: Aug 11, 2023 11:52 AM Reporting Lab: [address] [address] Performing Lab: [address] [address] PROTEIN,TOTAL 5.5 g/dL L 6.0-8.3 ALBUMIN 3.6 g/dL 3.5-5.0 ALKALINE PHOSPHATASE 71 U/L 40-150 AST 20 U/L 5-34 ALT 24 U/L BILIRUBIN, TOTAL 1.1 mg/dL 0.2-1.2 May 08, 2024 11:24 AM [facility] BASIC METABOLIC PANEL (fasting) Specimen Type: SERUM No comment entered. Ordering Provider: JUAN LUIS PETER F Report Released Date/Time: Aug 11, 2023 11:52 AM Reporting Lab: [address] [address] Performing Lab: [address] [address] UREA NITROGEN 19 mg/dL 7-25 GLUCOSE 216 mg/dL H 65-100 SODIUM 142 mmol/L 135-145 POTASSIUM 3.5 mmol/L 3.5-5.0 CHLORIDE 107 mmol/L 100-110 CO2 25 meq/L 20-30 CREATININE, Serum 0.84 mg/dL 0.50-1.40 eGFR(CKD-EPI 2020) 85 mL/min >60 May 08, 2024 11:24 AM [facility] CBC Specimen Type: BLOOD No comment entered. Ordering Provider: JUAN LUIS PETER F Report Released Date/Time: Aug 11, 2023 11:52 AM Reporting Lab: [facility] [address] [facility] [address] Performing Lab: [address] [address] WBC 4.08 10*3/uL L 4.50-11.00 RBC 4.53 10*6/uL 4.23-5.66 HGB 13.1 g/dL 12.8-17 HCT 39.9 39.2-50.4 MCV 88.1 fL 82-99 MCHC 32.8 g/dL 30.8-35.1 PLT 130 10*3/uL L 140-360 RDW-CV 14.5 12.0-16.0 MCH 28.9 pg 26.2-32.6 May 08, 2024 11:24 AM [facility] LIPID PANEL FASTING Specimen Type: SERUM No comment entered. Ordering Provider: JUAN LUIS PETER F Report Released Date/Time: Aug 11, 2023 11:52 AM Reporting Lab: [address] [address] Performing Lab: [address] [address] CHOLESTEROL 142 mg/dL TRIGLYCERIDE 179 mg/dL H 0-150 LDL calculated 64 mg/dL 0-129 CHOL/HDL 3.4 HDL CHOLESTEROL 42 mg/dL 40-60 May 08, 2024 11:24 AM [facility] CBC AND DIFF (AUTO) Specimen Type: BLOOD No comment entered. Ordering Provider: JUAN LUIS PETER F Report Released Date/Time: Aug 11, 2023 11:52 AM Reporting [facility] [address] [facility] [address] Performing Lab: [facility] [address] [facility] [address] WBC 4.08 10*3/uL L 4.50-11.00 RBC 4.53 [...] 10*3/uL 0.00-0.00 May 08, 2024 11:23 AM [facility] OSMOLALITY (SERUM) Specimen Type: SERUM No comment entered. Ordering Provider: ALLIE CUELLO Report Released Date/Time: Nov 27, 2023 07:39 PM Reporting Lab: [facility] [address] [facility] [address] Performing Lab: [facility] [address] [facility] [address] OSMOLALITY (SERUM) 299 280-300 May 08, 2024 11:23 AM [facility] CALCIUM Specimen Type: SERUM Comment: *GLUCOSE Not Performed: May 08, 2024@11:36 [place] [id number] *CREAM MAKER Reason: Duplicate *UREA NITROGEN Not Performed: May 08, 2024@11:36 by [id number] *CREAM MAKER Reason: Duplicate *CREATININE (eGFR 2020) Not Performed: May 08, 2024@11:36 by [id number] *CREAM MAKER Reason: Duplicate *SODIUM Not Performed: May 08, 2024@11:36 by [id number] *CREAM MAKER Reason: Duplicate *CHLORIDE Not Performed: May 08, 2024@11:36 [place] [id number] *CREAM MAKER Reason: Duplicate *CO2 Not Performed: May 08, 2024@11:36 by [id number] *CREAM MAKER Reason: Duplicate *POTASSIUM Not Performed: May 08, 2024@11:36 by [id number] *CREAM MAKER Reason: Duplicate Ordering Provider: ALLIE CUELLO Report Released Date/Time: Nov 27, 2023 07:39 PM Reporting Lab: [facility] [address] [facility] [address] Performing Lab: [facility] [address] [facility] [address] CALCIUM 8.5 mg/dL 8.5-10.2 May 08, 2024 11:23 AM [facility] VITAMIN D (25-OH) Specimen Type: SERUM No comment entered. Ordering Provider: ALLIE CUELLO Report Released Date/Time: Nov 27, 2023 07:39 PM Reporting Lab: [facility] [address] [facility] [address] Performing Lab: [facility] [address] [facility] [address] VITAMIN D (25-OH) 46 ng/mL 20-50 Social [...] VA-TOBACCO FORMER USER [place] [facility] [place] [facility] Tobacco Use History This section includes a history of the smoking, or tobacco-related health factors, that were collected on or before the date of the Encounter. The data comes from the [place] facility where the Encounter took place. Date/Time Smoking Status/Tobac co Use Comment [facility] Jun 05, 2023 11:00 AM VA-TOBACCO QUIT 15 YRS OR MORE [facility] [place] [facility] Jun 06, 2022 01:00 PM VA-TOBACCO FORMER USER [facility] [place] [facility] Jun 06, 2022 01:00 PM VA-TOBACCO QUIT 15 YRS OR MORE [facility] [place] [facility] Jun 30, 2021 02:37 PM VA-TOBACCO FORMER USER [facility] [place] [facility] Jun 30, 2021 02:37 PM VA-TOBACCO QUIT 5 TO < 15 YRS [place] [facility] [place] [facility] May 22, 2020 03:30 PM VA-TOBACCO NEVER USED [place] [facility] [place] [facility] May 08, 2018 02:03 PM VA-TOBACCO FORMER USER [facility] [place] [facility] May 08, 2018 02:03 PM VA-TOBACCO QUIT 15 YRS OR MORE [facility] [place] [facility] November 10, 2017 02:33 PM QUIT TOBACCO USE > 7 YEARS AGO [facility] [place] [facility] October 21, 2016 01:55 PM QUIT TOBACCO USE > 7 YEARS AGO [facility] [place] [facility] Sep 18, 2015 11:24 AM QUIT TOBACCO USE > 7 YEARS AGO stopped 50 years ago [facility] [place] [facility] May 19, 2005 08:01 AM HISTORY OF SMOKING [facility] [place] [facility] May 31, 2004 01:02 PM HISTORY OF SMOKING [facility] [place] [facility] Jun 04, 2003 07:57 AM HISTORY OF SMOKING [facility] [place] [facility] Jun 03, 2002 01:11 PM HISTORY OF SMOKING [facility] [place] [facility] Jun 03, 2002 01:11 PM QUIT TOBACCO USE > 7 YEARS AGO [facility] [place] [facility] Advance Directives: All historical and current Section [...] Jun 02, 2023 ADVANCE DIRECTIVE JENNIFER QUIROS [facility] Encounter Notes: All associated encounter notes This section contains the clinical notes associated to the Encounter. Date/Time Encounter Note(s) Provider Source May 08, 2024 09:40 AM OCCUPATIONAL MEDICINE CONSULT: [facility] TITLE: CONSULT REPORT/OCCUPATIONAL THERAPY STANDARD TITLE: OCCUPATIONAL MEDICINE CONSULT DATE OF NOTE: MAY 08, 2024@09:40 ENTRY DATE: MAY 08, 2024@09:40:29 AUTHOR: CYNTHIA MCLEAN COSIGNER: TOÑO PETER URGENCY: STATUS: COMPLETED Initial Evaluation date: Apr Progress Note Date: Treatment #: eval Treatment time: 45 minutes Diagnosis: Impingement Syndrome of right Shoulder(ICD-10-CM M75.41) Provider: Brittani CABA Treatment Precautions: Cardiac Patient identified by full name and date of S: Mr. Shepherd is an 84 y/o 10% SC male who was referred to OT for R shoulder pain. He was seen in the OT clinic on 05/08/2024. PMH: Active problems - Computerized Problem List is the source for the followin. Elevated PSA 2. Aortic Valve Disorder (SCT 7993077) 3. Cerebrovascular disease 4. Chronic recurrent major depressive disorder 5. Insulin pump present 6. Hypertension 7. Family history of cancer of colon 8. Testicular hypofunction 9. Osteoporosis 10. Major depressive disorder 11. RA - Rheumatoid arthritis 12. History of colonic polyp 13. Diverticular disease of colon 14. Adjustment disorder 15. Hemorrhoids 16. Polymyalgia Rheumatica 17. Microscopic Hematuria 18. Rosacea 19. Hypertension (SNOMED CT 20748416) 20. Spinal Stenosis * 21. Hyperlipidemia (SNOMED CT 76054002) 22. Osteoarthritis * 23. Lower Back Pain * 24. Vertigo 25. Diabetes mellitus type 2 (SNOMED CT 16034179) 26. Gastroesophageal Reflux Disorder MICHAEL: pt reports [...] O: Pt is R hand dominant. 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 hx; [place] [place], 6 years. He enjoys woodworking. Clinical Presentation: [...] *wall ladder into flexion, 30x5 Access Code: [email or web address] URL: [email or web address] Date: 05/08/2024 Prepared by: [facility] Exercises - Seated Shoulder Flexion AAROM [...] care and clinical diagnosis code. /thomas/ Cynthia Mclean, MS OTR/L, T Occupational Therapist Signed: 05/08/2024 15:56 /thomas/ Toño Peter PA-C STAFF PHYSICIAN STRAPPING MACHINE TENDER Cosigned: 05/09/2024 07:39 CYNTHIA MCLEAN [facility]
--- OUTSIDE RECORDS SUMMARY | 2024-06-14 13:22 | XMS_ITS | Encounter Summary ---
Author Name [facility] [place] Organization [facility] [place] Address [address] [place] [address] Care Team Providers Care Media Marketing Director Name Role Phone TOÑO CAI Primary Care [...] [place] MEDICARE SUPPLEMEN MASTER PSUED O MEDEX BRONZ E Mar 19, 2004 [id number] [phone] HOLLIE SHEPHERD PATIENT [place] MED[place] SUPPLEMEN MASTER MEDEX BRONZ E Mar 19, 2004 [id number] HOLLIE SHEPHERD [place] SUPPLEMEN MASTER MEDEX BRONZ E Mar 19, 2004 [id number] HOLLIE SHEPHERD PATIENT BCBS [facility] MEDICARE SUPPLEMEN MASTER PSUED O MEDEX BRONZ E Mar 19, 2004 [id number] [phone] HOLLIE SHEPHERD PATIENT MEDICARE (WNR) MEDICARE (M) PART B Mar 19, 2004 PART B [id number] CORA,HOLLIE ALD PATIENT MEDICARE (WNR) MEDICARE (M) PART B Mar 19, 2004 PART B [id number] HOLLIE SHEPHERD ALD PATIENT MEDICARE (WNR) MEDICARE (M) PART B Mar 19, 2004 PART B [id number] CORAHOLLIE SILVA ALD PATIENT MEDICARE (WNR) MEDICARE (M) PART A Feb 17, 2003 PART A [id number] [phone] CORAHOLLIE SILVA ALD PATIENT MEDICARE (WNR) MEDICARE (M) PART A Feb 17, 2003 PART A [id number] [phone] CORAHOLLIE SILVA ALD PATIENT MEDICARE (WNR) MEDICARE (M) PART A Feb 17, 2003 PART A [id number] HOLLIE SHEPHERD ALD PATIENT MEDICARE (WNR) MEDICARE (M) PART A Feb 17, 2003 PART A [id number] HOLLIE SHEPHERD ALD PATIENT MEDICARE (WNR) MEDICARE (M) PART B Feb 17, 2003 PART B [id number] [phone] HOLLIE SHEPHERD ALD PATIENT MEDICARE (WNR) MEDICARE (M) PART A Feb 17, 2003 PART A [id number] HOLLIE SHEPHERD PATIENT MEDICARE (WNR) MEDICARE (M) PART B Feb 17, 2003 PART B [id number] HOLLIE SHEPHERD PATIENT Selected Encounter This section includes the information on record at [place] for the Encounter. Date/Time Encounter Type Encounter Description Reason Pro vider Source May 09, 2024 06:09 PM Outpatient Encounter ENDOCRINOLOGY IHE Encounter Template Text not used by [place] Plan of Treatment: Future Appointments (+ 6 months) and Future Tests (+/- 45 days) The Plan of Treatment section includes future care activities for the patient from all [place] treatmentfacilities. This section includes future appointments and future orders which are active, pending or scheduled. Future Appointments This section includes appointments that were scheduled to occur 6 months from the date of the Encounter, up to a maximum of 20 appointments. The data comes from all [place] treatment facilities. Appointment Date/Time Appointment Type Appointme nt Facility Name May 29, 2024 11:30 AM AM[facility]ULAT[facility]IC[facility] [place] [facility] Jun 05, 2024 12:00 PM AMBULATORY [place] [facility] Jun 05, 2024 12:00 PM AMBULATORY - PS[facility]CHIATRY [facility] [place] [facility] Jun 17, 2024 10:30 AM AMBULATORY - MEDICINE [facility] [place] [facility] Aug 06, 2024 10:00 AM AMBULATORY - MEDICINE [facility] [place] [facility] Oct 02, 2024 12:00 PM AMBULATORY [place] [facility] Oct 02, 2024 12:00 PM AMBULATORY - PS[facility]CHIATRY [facility] [place] [facility] Oct 03, 2024 02:00 PM AMBULATORY - MEDICINE [facility] Active, Pending, and Scheduled Orders This section includes a listing of several types of active, pending, and scheduled orders, including clinic medications orders, diagnostic test orders, procedure orders and consult orders; where the start date of the order is 45 days before the date of the Encounter or 45 days after the date of theEncounter. The data comes from all [place] treatment facilities. Test Date/Time Test Type Test Details Facility Name May 29, 2024 06:36 PM Consult Order PHARMACY/N HM OUTPT Cons French Folder's Choice [facility] Jun 10, 2024 11:25 AM Consult Order COMMUNITY CARE-UROLOGY Cons [facility] Folder's Choice [facility] Lab Results: +/- 30 days of the encounter This section includes the Chemistry and Hematology Lab Results on record with [place] for the patient. Radiology Reports and Pathology Reports are provided separately, in subsequent sections. Lab Results This section contains the Chemistry/Hematology Results that were resulted 30 days before or 30 daysafter the date of the Encounter. Date/Time Source Result Type Result - Unit Interpretation Reference Range Comment Jun 04, 2024 10:27 AM [facility] HEMOGLOBIN A1C PANEL Specimen Type: [...] May 29, 2024 06:36 PM Reporting Lab: [facility] [address] [address] Performing Lab: [facility] [address] HEMOGLOBIN A1C 6.5 H 4.0-5.6 Jun 04, 2024 10:27 AM [facility] MICROALBUMIN CREATININE RATIO PANEL Specimen Type: URINE No comment entered. Ordering Provider: JUAN LUIS CAI F Report Released Date/Time: May 29, 2024 06:36 PM Reporting Lab: [facility] [address] [address] Performing Lab: [facility] [address] [address] MICROALBUMIN/C REATININE RATIO 36.0 mg/g H 0-29.9 MICROALBUMIN,Q UANTITATIVE 2.8 mg/dL RR UNAVAIL CREATININE URINE 77.84 mg/dL Jun 04, 2024 10:27 AM [facility] LIVER FUNCTION Specimen Type: SERUM No comment entered. Ordering Provider: JUAN LUIS CAI F Report Released Date/Time: May 29, 2024 06:36 PM Reporting Lab: [address] [address] Performing Lab: [address] [address] PROTEIN,TOTAL 5.5 g/dL L 6.0-8.3 ALBUMIN 3.7 g/dL 3.5-5.0 ALKALINE PHOSPHATASE 78 U/L 40-150 AST 20 U/L 5-34 ALT 19 U/L BILIRUBIN, TOTAL 1.3 mg/dL H 0.2-1.2 BILIRUBIN, DIRECT 0.5 mg/dL 0-0.5 Jun 04, 2024 10:27 AM [facility] LIPID PANEL, NON FASTING Specimen Type: SERUM No comment entered. Ordering Provider: JUAN LUIS CAI F Report Released Date/Time: May 29, 2024 06:36 PM Reporting Lab: [facility] [address] [facility] [address] Performing Lab: [facility] [address] [facility] [address] CHOLESTEROL 151 mg/dL TRIGLYCERIDE 146 mg/dL 0-150 LDL calculated 73 mg/dL 0-129 CHOL/HDL 3.1 HDL CHOLESTEROL 49 mg/dL 40-60 Jun 04, 2024 10:27 AM [facility] BASIC METABOLIC PANEL (non-fasting) Specimen Type: SERUM No comment entered. Ordering Provider: JUAN LUIS CAI F Report Released Date/Time: May 29, 2024 06:36 PM Reporting Lab: [facility] [address] [facility] [address] Performing Lab: [facility] [address] UREA NITROGEN 19 mg/dL 7-25 GLUCOSE 187 mg/dL H 65-100 SODIUM 140 mmol/L 135-145 POTASSIUM 3.8 mmol/L 3.5-5.0 CHLORIDE 103 mmol/L 100-110 CO2 25 meq/L 20-30 CREATININE, Serum 0.97 mg/dL 0.50-1.40 eGFR(CKD-EPI 2020) 76 mL/min >60 Jun 04, 2024 10:27 AM [facility] TSH Specimen Type: SERUM No comment entered. Ordering Provider: JUAN LUIS CAI F Report Released Date/Time: May 29, 2024 06:36 PM Reporting Lab: [facility]USEUN[facility] [address] [facility] [address] Performing Lab: [facility] [address] TSH 1.78 u[IU]/mL 0.35-5.00 May 08, 2024 11:24 AM [facility] TESTOSTERONE, TOTAL (WHV) Specimen Type: SERUM No comment entered. Ordering Provider: JUAN LUIS CAI F Report Released Date/Time: Aug 11, 2023 11:52 AM Reporting Lab: [facility] [address] [facility] [address] Performing Lab: [facility] [address] [address] TESTOSTERONE, TOTAL (WHV) 44.33 ng/dL L 220.00-892 .00 May 08, 2024 11:24 AM [facility] LIVER FUNCTION Specimen Type: SERUM No comment entered. Ordering Provider: JUAN LUIS CAI F Report Released Date/Time: Aug 11, 2023 11:52 AM Reporting Lab: [address] [address] Performing Lab: [address] [address] PROTEIN,TOTAL 5.5 g/dL L 6.0-8.3 ALBUMIN 3.6 g/dL 3.5-5.0 ALKALINE PHOSPHATASE 71 U/L 40-150 AST 20 U/L 5-34 ALT 24 U/L BILIRUBIN, TOTAL 1.1 mg/dL 0.2-1.2 May 08, 2024 11:24 AM [facility] LIPID PANEL FASTING Specimen Type: SERUM No comment entered. Ordering Provider: JUAN LUIS CAI F Report Released Date/Time: Aug 11, 2023 11:52 AM Reporting Lab: [address] [address] Performing Lab: [address] [address] CHOLESTEROL 142 mg/dL TRIGLYCERIDE 179 mg/dL H 0-150 LDL calculated 64 mg/dL 0-129 CHOL/HDL 3.4 HDL CHOLESTEROL 42 mg/dL 40-60 May 08, 2024 11:24 AM [facility] BASIC METABOLIC PANEL (fasting) Specimen Type: SERUM No comment entered. Ordering Provider: JUAN LUIS CAI F Report Released Date/Time: Aug 11, 2023 11:52 AM Reporting Lab: [address] [address] Performing Lab: [address] [address] UREA NITROGEN 19 mg/dL 7-25 GLUCOSE 216 mg/dL H 65-100 SODIUM 142 mmol/L 135-145 POTASSIUM 3.5 mmol/L 3.5-5.0 CHLORIDE 107 mmol/L 100-110 CO2 25 meq/L 20-30 CREATININE, Serum 0.84 mg/dL 0.50-1.40 eGFR(CKD-EPI 2020) 85 mL/min >60 May 08, 2024 11:24 AM [facility] CBC Specimen Type: BLOOD No comment entered. Ordering Provider: JUAN LUIS CAI F Report Released Date/Time: Aug 11, 2023 11:52 AM Reporting Lab: [address] [address] Performing Lab: [address] [address] WBC 4.08 10*3/uL L 4.50-11.00 RBC 4.53 10*6/uL 4.23-5.66 HGB 13.1 g/dL 12.8-17 HCT 39.9 39.2-50.4 MCV 88.1 fL 82-99 MCHC 32.8 g/dL 30.8-35.1 PLT 130 10*3/uL L 140-360 RDW-CV 14.5 12.0-16.0 MCH 28.9 pg 26.2-32.6 May 08, 2024 11:24 AM [facility] CBC AND DIFF (AUTO) Specimen Type: BLOOD No comment entered. Ordering Provider: JUAN LUIS CAI F Report Released Date/Time: Aug 11, 2023 11:52 AM Reporting Lab: [address] [address] Performing Lab: [address] [address] WBC 4.08 10*3/uL L 4.50-11.00 RBC 4.53 [...] 10*3/uL 0.00-0.00 May 08, 2024 11:23 AM [facility] OSMOLALITY (SERUM) Specimen Type: SERUM No comment entered. Ordering Provider: JENNIFER CUELLO Report Released Date/Time: Nov 27, 2023 07:39 PM Reporting Lab: [facility] [address] [facility] [address] Performing Lab: [facility] [address] [facility] [address] OSMOLALITY (SERUM) 299 280-300 May 08, 2024 11:23 AM [facility] CALCIUM Specimen Type: SERUM Comment: *GLUCOSE Not Performed: May 08, 2024@11:36 [place] [id number] *DUPLICATION SPECIALIST Reason: Duplicate *UREA NITROGEN Not Performed: May 08, 2024@11:36 by [id number] *DUPLICATION SPECIALIST Reason: Duplicate *CREATININE (eGFR 2020) Not Performed: May 08, 2024@11:36 [place] [id number] *DUPLICATION SPECIALIST Reason: Duplicate *SODIUM Not Performed: May 08, 2024@11:36 by [id number] *DUPLICATION SPECIALIST Reason: Duplicate *CHLORIDE Not Performed: May 08, 2024@11:36 by [id number] *DUPLICATION SPECIALIST Reason: Duplicate *CO2 Not Performed: May 08, 2024@11:36 by [id number] *DUPLICATION SPECIALIST Reason: Duplicate *POTASSIUM Not Performed: May 08, 2024@11:36 by [id number] *DUPLICATION SPECIALIST Reason: Duplicate Ordering Provider: JENNIFER CUELLO Report Released Date/Time: Nov 27, 2023 07:39 PM Reporting Lab: [facility] [employer] [facility]AT[facility] [address] [facility] [address] Performing Lab: [address] [address] CALCIUM 8.5 mg/dL 8.5-10.2 May 08, 2024 11:23 AM [facility] VITAMIN D (25-OH) Specimen Type: SERUM No comment entered. Ordering Provider: JENNIFER CUELLO Report Released Date/Time: Nov 27, 2023 07:39 PM Reporting Lab: [place] [employer] InstrumentsATLANT[facility] [address] [facility] [address] Performing Lab: [facility] [address] VITAMIN D (25-OH) 46 ng/mL 20-50 Social History: Smoking Status (Most current) and Tobacco Use (All prior to encounter date) This section includes the most current, and the historical, smoking and tobacco- related health factors from the [place] facility where the Encounter took place. Current Smoking Status This section includes the most current smoking, or tobacco-related health factor, from the [place] facility where the Encounter took place. Date/Time Current Smoking Status Comment Ninfa chahal Jun 05, 2023 11:00 AM [place]-TOBACCO FORMER USER [facility] [employer] [facility]ATL[facility] Tobacco Use History This section includes a history of the smoking, or tobacco-related health factors, that were collected on or before the date of the Encounter. The data comes from the [place] facility where the Encounter took place. Date/Time Smoking Status/Tobac co Use Comment Facility Jun 05, 2023 11:00 AM VA-TOBACCO QUIT 15 YRS OR MORE [place] [facility] [place] [facility] Jun 06, 2022 01:00 PM VA-TOBACCO FORMER USER [facility] [place] [facility] Jun 06, 2022 01:00 PM VA-TOBACCO QUIT 15 YRS OR MORE [facility] [place] [facility] Jun 30, 2021 02:37 PM VA-TOBACCO FORMER USER [facility] [place] [facility] Jun 30, 2021 02:37 PM VA-TOBACCO QUIT 5 TO < 15 YRS [facility] [place] [facility] May 22, 2020 03:30 PM VA-TOBACCO NEVER USED [place] [facility] [place] [facility] May 08, 2018 02:03 PM VA-TOBACCO FORMER USER [facility] [place] [facility] May 08, 2018 02:03 PM VA-TOBACCO QUIT 15 YRS OR MORE [facility] [place] [facility] November 10, 2017 02:33 PM QUIT TOBACCO USE > 7 YEARS AGO [facility] [place] [facility] October 21, 2016 01:55 PM QUIT TOBACCO USE > 7 YEARS AGO [facility] [place] [facility] Sep 18, 2015 11:24 AM QUIT TOBACCO USE > 7 YEARS AGO stopped 50 years ago [facility] [place] [facility] May 19, 2005 08:01 AM HISTORY OF SMOKING [facility] [place] [facility] May 31, 2004 01:02 PM HISTORY OF SMOKING [facility] [place] [facility] Jun 04, 2003 07:57 AM HISTORY OF SMOKING [facility] [place] [facility] Jun 03, 2002 01:11 PM HISTORY OF SMOKING [facility] [place] [facility] Jun 03, 2002 01:11 PM QUIT TOBACCO USE > 7 YEARS AGO [place] [facility] [place] [facility] Advance Directives: All historical and current Section Date Range: From patient's date of to the date document was created. This section includes ALL of a patient's completed or amended [place] Advance and Rescinded Directives. The entries below indicate that a directive exists for the patient, but an actual copy is not included with this document. The data comes from all [place] facilities. Date Advance Directives Provider Source Jun 02, 2023 ADVANCE DIRECTIVE MARYANNETRICEJENNIFER [place] CNT [facility] Encounter Notes: All associated encounter notes This section contains the clinical notes associated to the Encounter. Date/Time Encounter Note(s) Provider Source May 09, 2024 06:10 PM LETTERS: LOCAL TITLE: PATIENT LETTER (B) STANDARD TITLE: LETTERS DATE OF NOTE: MAY 09, 2024@18:10 ENTRY DATE: MAY 09, 2024@18:10:06 AUTHOR: JENNIFER CUELLO COSIGNER: URGENCY: STATUS: COMPLETED PATIENT LETTER (B) Has ADDENDA Apr BEBO SHEPHERD [address] [place] [id number] Dear , Your recent test results are as follows: 05/08/2024 11:24 Testosterone 44.33 L ng/dL 220.00 - 892.00 05/08/2024 11:24 SERUM CREATININE, Serum 0.84 mg/dL 0.50 - 1.40 eGFR(CKD-EPI 2020 85 mL/min Ref: >=60 SODIUM 142 mmol/L 135 - 145 POTASSIUM 3.5 mmol/L 3.5 - 5.0 CHLORIDE 107 mmol/L 100 - 110 CO2 25 mEq/L 20 - 30 UREA NITROGEN 19 mg/dL 7 - 25 GLUCOSE 216 H mg/dL 65 - 100 PROTEIN,TOTAL 5.5 L g/dL 6.0 - 8.3 ALBUMIN 3.6 g/dL 3.5 - 5.0 ALK SARWAT 71 U/L 40 - 150 AST 20 U/L 5 - 34 BILIRUBIN, TOTAL 1.1 mg/dL 0.2 - 1.2 CHOLESTEROL 142 mg/dL <7 - 199 TRIGLYCERIDE 179 H mg/dL 0 - 150 LDL calculated 64 mg/dL 0 - 129 CHOL/HDL 3.4 ALT 24 U/L <6 - 55 HDL CHOLESTEROL 42 mg/dL 40 - 60 05/08/2024 11:24 WBC 4.08 L K/cmm 4.50 - 11.00 RBC 4.53 M/cmm 4.23 - 5.66 HGB 13.1 g/dL 12.8 - 17 HCT 39.9 % 39.2 - 50.4 MCV 88.1 fl 82 - 99 MCH 28.9 pg 26.2 - 32.6 MCHC 32.8 g/dL 30.8 - 35.1 RDW-CV 14.5 % 12.0 - 16.0 PLT 130 L K/cmm 140 - 360 NEUT % 46.1 % 43.7 - 75.8 LYMPH % 30.9 % 14.0 - 42.3 MONO % 20.3 H % 5.1 - 13.7 EOS % 1.2 % 0.4 - 6.8 BASO % 1.0 % 0.1 - 2.0 IMMATURE GRAN % 0.5 % 0.0 - 0.7 NRBC % 0.0 % 0.0 - 0.0 NEUT, ABS 1.88 L K/cmm 2.20 - 7.60 LYMPH, ABS 1.26 K/cmm 1.00 - 3.20 MONO, ABS 0.83 K/cmm 0.30 - 1.10 EOS, ABS 0.05 K/cmm 0.03 - 0.44 BASO, ABS 0.04 K/cmm 0.01 - 0.13 IMMATURE GRAN, AB 0.02 K/cmm 0.00 - 0.06 NRBC, ABS 0.00 K/cmm 0.00 - 0.00 05/08/2024 11:23 SERUM VITAMIN D (25-OH) 46 ng/mL 20 - 50 05/08/2024 11:23 SERUM !! CALCIUM 8.5 mg/dL 8.5 - 10.2 Your blood counts show that your white blood cell count (the cells which fight infection) are a little low. The counts are otherwise fine. YOur calcium is borderline low. Please be sure to take the calcium citrate four tablets twice daily. Please continue vitamin D. Your kidney function blood test and chemistries are fine. Your testosterone is low. Your liver tests are fine. Please call if you have any questions or concerns at [phone] option 2 option 4. Sincerely, Jennifer Cuello MD 05/10/2024 ADDENDUM STATUS: COMPLETED Apr BEBO SHEPHERD [address] [place] [id number] Dear , Your recent test results are as follows: 05/08/2024 11:23 SERUM OSMOLALITY (SERUM 299 mOsm/K H2O 280 - 300 This test of your state of hydration is normal. Please call if you have any questions or concerns at [phone] option 2 option 4. Sincerely, Jennifer Cuello MD /thomas/ JENNIFER CUELLO MD STAFF PHYSICIAN Signed: 05/10/2024 10:25 [facility]
--- OUTSIDE RECORDS SUMMARY | 2024-06-14 13:22 | XMS_ITS | Encounter Summary ---
Author Name [facility] [place] Organization [facility] [place] [facility] [place] Address [address] [place] [id number] Care Team Providers Care Rough Carpenter Name Role Phone TOÑO CAI Primary Care [...] Relationship to Policy Wen LUKE [place] MEDICARE SUPPLEMEN MASTER PSUED O MEDEX BRONZ E Mar 19, 2004 [id number] HOLLIE SHEPHERD PATIENT [place] SUPPLEMEN MASTER MEDEX BRONZ E Mar 19, 2004 [id number] [phone] HOLLIE SHEPHER[place] SUPPLEMEN MASTER MEDEX BRONZ E Mar 19, 2004 [id number] [phone] HOLLIE SHEPHERD PATIENT BCBS [facility] MEDICARE SUPPLEMEN MASTER PSUED O MEDEX BRONZ E Mar 19, 2004 [id number] [phone] HOLLIE SHEPHERD PATIENT MEDICARE (WNR) MEDICARE (M) PART B Mar 19, 2004 PART B [id number] [phone] CORA,HOLLIE ALD PATIENT MEDICARE (WNR) MEDICARE (M) PART B Mar 19, 2004 PART B [id number] [phone] HOLLIE SHEPHERD ALD PATIENT MEDICARE (WNR) MEDICARE (M) PART B Mar 19, 2004 PART B [id number] [phone] CORAHOLLIE SILVA ALD PATIENT MEDICARE (WNR) MEDICARE (M) PART A Feb 17, 2003 PART A [id number] HOLLIE SHEPHERD ALD PATIENT MEDICARE (WNR) MEDICARE (M) PART A Feb 17, 2003 PART A [id number] HOLLIE SHEPHERD ALD PATIENT MEDICARE (WNR) MEDICARE (M) PART A Feb 17, 2003 PART A [id number] HOLLIE SHEPHERD ALD PATIENT MEDICARE (WNR) MEDICARE (M) PART A Feb 17, 2003 PART A [id number] HOLLIE SHEPHERD PATIENT MEDICARE (WNR) MEDICARE (M) PART B Feb 17, 2003 PART B [id number] HOLLIE SHEPHERD PATIENT MEDICARE (WNR) MEDICARE (M) PART A Feb 17, 2003 PART A [id number] [phone] HOLLIE SHEPHERD PATIENT MEDICARE (WNR) MEDICARE (M) PART B Feb 17, 2003 PART B [id number] [phone] HOLLIE SHEPHERD PATIENT Selected Encounter This section includes the information on record at [place] for the Encounter. Date/Time Encounter Type Encounter Description Reason Pro vider Source May 08, 2024 09:59 AM Outpatient Encounter PHYSICAL THERAPY IHE Encounter Template Text not used by [...] - MEDICINE [facility] [place] [facility] Jun 05, 2024 12:00 PM AMBULATORY [place] [facility] Jun 05, 2024 12:00 PM AMBULATORY - [facility]IATRY [facility] [place] [facility] Jun 17, 2024 10:30 AM AMBULATORY - MEDICINE [facility] [place] [facility] Aug 06, 2024 10:00 AM AMBULATORY - MEDICINE [facility] [place] [facility] Oct 02, 2024 12:00 PM AMBULAT[place] [facility] Oct 02, 2024 12:00 PM AMBULATORY - PS[facility]CHIATRY [facility] [place] [facility] Oct 03, 2024 02:00 PM [facility] - [facility] Active, Pending, and Scheduled Orders This section includes a listing of several types of active, pending, and scheduled orders, including clinic medications orders, diagnostic test orders, procedure orders and consult orders; where the start date of the order is 45 days before the date of the Encounter or 45 days after the date of theEncounter. The data comes from all [place] treatment facilities. Test Date/Time Test Type Test Details Facility Name May 29, 2024 06:36 PM Consult Order PHARMACY/N HM OUTPT Cons Ui Application Developer's Choice [facility] Jun 10, 2024 11:25 AM Consult Order COMMUNITY CARE-UROLOGY Cons [facility]i Application [facility] Lab Results: +/- 30 days of the encounter This section includes the Chemistry and Hematology Lab Results on record with [place] for the patient. Radiology Reports and Pathology Reports are provided separately, in subsequent sections. Lab Results This section contains the Chemistry/Hematology Results that were resulted 30 days before or 30 daysafter the date of the Encounter. Date/Time Source Result Type Result - Unit Interpretation Reference Range Comment Jun 04, 2024 10:27 [facility] HEMOGLOBIN A1C PANEL Specimen Type: BLOOD [...] May 29, 2024 06:36 PM Reporting Lab: [facility] [place] [facility] [address] [facility] [address] Performing Lab: [facility] [place] [facility] [address] [facility] [address] HEMOGLOBIN A1C 6.5 H 4.0-5.6 Jun 04, 2024 10:27 AM [facility] [place] [facility] MICROALBUMIN CREATININE RATIO PANEL Specimen Type: URINE No comment entered. Ordering Provider: JUAN LUIS CAI F Report Released Date/Time: May 29, 2024 06:36 PM Reporting Lab: [facility] [place] [facility] [address] [facility] [address] Performing Lab: [facility] [place] [facility] [address] [facility] [address] MICROALBUMIN/C REATININE RATIO 36.0 mg/g H 0-29.9 MICROALBUMIN,Q UANTITATIVE 2.8 mg/dL RR UNAVAIL CREATININE URINE 77.84 mg/dL Jun 04, 2024 10:27 AM [facility] TSH Specimen Type: SERUM No comment entered. Ordering Provider: JUAN LUIS CAI F Report Released Date/Time: May 29, 2024 06:36 PM Reporting Lab: [facility] [place] [facility] [address] [facility] [address] Performing Lab: [facility] [place] [facility] [address] [facility] [address] TSH 1.78 u[IU]/mL 0.35-5.00 Jun 04, 2024 10:27 AM [facility] LIPID PANEL, NON FASTING Specimen Type: SERUM No comment entered. Ordering Provider: JUAN LUIS CAI F Report Released Date/Time: May 29, 2024 06:36 PM Reporting Lab: [facility] [place] [facility] [address] [facility] [address] Performing Lab: [facility] [place] [address] [address] CHOLESTEROL 151 mg/dL TRIGLYCERIDE 146 mg/dL 0-150 LDL calculated 73 mg/dL 0-129 CHOL/HDL 3.1 HDL CHOLESTEROL 49 mg/dL 40-60 Jun 04, 2024 10:27 AM [facility] LIVER FUNCTION Specimen Type: SERUM No comment entered. Ordering Provider: JUAN LUIS CAI F Report Released Date/Time: May 29, 2024 06:36 PM Reporting Lab: [address] [address] Performing Lab: [address] [address] PROTEIN,TOTAL 5.5 g/dL L 6.0-8.3 ALBUMIN 3.7 g/dL 3.5-5.0 ALKALINE PHOSPHATASE 78 U/L 40-150 AST 20 U/L 5-34 ALT 19 U/L BILIRUBIN, TOTAL 1.3 mg/dL H 0.2-1.2 BILIRUBIN, DIRECT 0.5 mg/dL 0-0.5 Jun 04, 2024 10:27 AM [facility] BASIC METABOLIC PANEL (non-fasting) Specimen Type: SERUM No comment entered. Ordering Provider: JUAN LUIS CAI F Report Released Date/Time: May 29, 2024 06:36 PM Reporting Lab: [address] [address] Performing Lab: [address] [address] UREA NITROGEN 19 mg/dL 7-25 GLUCOSE 187 mg/dL H 65-100 SODIUM 140 mmol/L 135-145 POTASSIUM 3.8 mmol/L 3.5-5.0 CHLORIDE 103 mmol/L 100-110 CO2 25 meq/L 20-30 CREATININE, Serum 0.97 mg/dL 0.50-1.40 eGFR(CKD-EPI 2020) 76 mL/min >60 May 08, 2024 11:24 AM [facility] TESTOSTERONE, TOTAL (WHV) Specimen Type: SERUM No comment entered. Ordering Provider: JUAN LUIS CAI F Report Released Date/Time: Aug 11, 2023 11:52 AM Reporting Lab: [facility] [address] [facility] [address] Performing Lab: [address] [address] TESTOSTERONE, TOTAL (WHV) 44.33 ng/dL L 220.00-892 .00 May 08, 2024 11:24 AM [facility] LIPID PANEL FASTING Specimen Type: SERUM No comment entered. Ordering Provider: JUAN LUIS CAI F Report Released Date/Time: Aug 11, 2023 11:52 AM Reporting Lab: [address] [address] Performing Lab: [address] [address] CHOLESTEROL 142 mg/dL TRIGLYCERIDE 179 mg/dL H 0-150 LDL calculated 64 mg/dL 0-129 CHOL/HDL 3.4 HDL CHOLESTEROL 42 mg/dL 40-60 May 08, 2024 11:24 AM [facility] LIVER FUNCTION Specimen Type: SERUM No comment entered. Ordering Provider: JUAN LUIS CAI Report Released Date/Time: Aug 11, 2023 11:52 AM Reporting Lab: [address] [address] Performing Lab: [address] [address] PROTEIN,TOTAL 5.5 g/dL L 6.0-8.3 ALBUMIN 3.6 g/dL 3.5-5.0 ALKALINE PHOSPHATASE 71 U/L 40-150 AST 20 U/L 5-34 ALT 24 U/L BILIRUBIN, TOTAL 1.1 mg/dL 0.2-1.2 May 08, 2024 11:24 AM [facility] CBC Specimen Type: BLOOD No comment entered. Ordering Provider: JUAN LUIS CAI F Report Released Date/Time: Aug 11, 2023 11:52 AM Reporting Lab: [address] [address] Performing Lab: [facility] [address] [facility] [address] WBC 4.08 10*3/uL L 4.50-11.00 RBC 4.53 10*6/uL 4.23-5.66 HGB 13.1 g/dL 12.8-17 HCT 39.9 39.2-50.4 MCV 88.1 fL 82-99 MCHC 32.8 g/dL 30.8-35.1 PLT 130 10*3/uL L 140-360 RDW-CV 14.5 12.0-16.0 MCH 28.9 pg 26.2-32.6 May 08, 2024 11:24 AM [facility] BASIC METABOLIC PANEL (fasting) Specimen Type: SERUM No comment entered. Ordering Provider: JUAN LUIS CAI F Report Released Date/Time: Aug 11, 2023 11:52 AM Reporting Lab: [address] [address] Performing Lab: [address] [address] UREA NITROGEN 19 mg/dL 7-25 GLUCOSE 216 mg/dL H 65-100 SODIUM 142 mmol/L 135-145 POTASSIUM 3.5 mmol/L 3.5-5.0 CHLORIDE 107 mmol/L 100-110 CO2 25 meq/L 20-30 CREATININE, Serum 0.84 mg/dL 0.50-1.40 eGFR(CKD-EPI 2020) 85 mL/min >60 May 08, 2024 11:24 AM [facility] CBC AND DIFF (AUTO) Specimen Type: BLOOD No comment entered. Ordering Provider: JUAN LUIS CAI F Report Released Date/Time: Aug 11, 2023 11:52 AM Reporting Lab: [address] [address] Performing Lab: [address] [address] WBC 4.08 10*3/uL L 4.50-11.00 RBC 4.53 [...] 10*3/uL 0.00-0.00 May 08, 2024 11:23 AM [facility] OSMOLALITY (SERUM) Specimen Type: SERUM No comment entered. Ordering Provider: ALLIE CUELLO Report Released Date/Time: Nov 27, 2023 07:39 PM Reporting Lab: [facility] [address] [facility] [address] Performing Lab: [facility] [address] [facility] [address] OSMOLALITY (SERUM) 299 280-300 May 08, 2024 11:23 AM [facility] CALCIUM Specimen Type: SERUM Comment: *GLUCOSE Not Performed: May 08, 2024@11:36 by [id number] *LEAD SQL DEVELOPER Reason: Duplicate *UREA NITROGEN Not Performed: May 08, 2024@11:36 by [id number] *LEAD SQL DEVELOPER Reason: Duplicate *CREATININE (eGFR 2020) Not Performed: May 08, 2024@11:36 by [id number] *LEAD SQL DEVELOPER Reason: Duplicate *SODIUM Not Performed: May 08, 2024@11:36 by [id number] *LEAD SQL DEVELOPER Reason: Duplicate *CHLORIDE Not Performed: May 08, 2024@11:36 by [id number] *LEAD SQL DEVELOPER Reason: Duplicate *CO2 Not Performed: May 08, 2024@11:36 by [id number] *LEAD SQL DEVELOPER Reason: Duplicate *POTASSIUM Not Performed: May 08, 2024@11:36 by [id number] *LEAD SQL DEVELOPER Reason: Duplicate Ordering Provider: ALLIE CUELLO Report Released Date/Time: Nov 27, 2023 07:39 PM Reporting Lab: [address] [address] Performing Lab: [address] [address] CALCIUM 8.5 mg/dL 8.5-10.2 May 08, 2024 11:23 AM [facility] VITAMIN D (25-OH) Specimen Type: SERUM No comment entered. Ordering Provider: ALLIE CUELLO Report Released Date/Time: Nov 27, 2023 07:39 PM Reporting Lab: [address] [address] Performing Lab: [address] [address] VITAMIN D (25-OH) 46 ng/mL 20-50 Social [...] 05, 2023 11:00 AM VA-TOBACCO FORMER USER [facility] Tobacco Use History This section includes a history of the smoking, or tobacco-related health factors, that were collected on or before the date of the Encounter. The data comes from the [place] facility where the Encounter took place. Date/Time Smoking Status/Tobac co Use Comment Facility Jun 05, 2023 11:00 AM VA-TOBACCO QUIT 15 YRS OR MORE [facility] [place] [facility] Jun 06, 2022 01:00 PM VA-TOBACCO FORMER USER [facility] [place] [facility] Jun 06, 2022 01:00 PM VA-TOBACCO QUIT 15 YRS OR MORE [facility] [place] [facility] Jun 30, 2021 02:37 PM VA-TOBACCO FORMER USER [facility] [place] [facility] Jun 30, 2021 02:37 PM VA-TOBACCO QUIT 5 TO < 15 YRS [facility] [place] [facility] May 22, 2020 03:30 PM VA-TOBACCO NEVER USED [facility] [place] [facility] May 08, 2018 02:03 PM VA-TOBACCO FORMER USER [facility] [place] [facility] May 08, 2018 02:03 PM VA-TOBACCO QUIT 15 YRS OR MORE [facility] [place] [facility] November 10, 2017 02:33 PM QUIT TOBACCO USE > 7 YEARS AGO [facility] [place] [facility] October 21, 2016 01:55 PM QUIT TOBACCO USE > 7 YEARS AGO [facility] [place] [facility] Sep 18, 2015 11:24 AM QUIT TOBACCO USE > 7 YEARS AGO stopped 50 years ago [facility] [place] [facility] May 19, 2005 08:01 AM HISTORY OF SMOKING [facility] [place] [facility] May 31, 2004 01:02 PM HISTORY OF SMOKING [facility] [place] [facility] Jun 04, 2003 07:57 AM HISTORY OF SMOKING [facility] [place] [facility] Jun 03, 2002 01:11 PM HISTORY OF SMOKING [facility] [place] [facility] Jun 03, 2002 01:11 PM QUIT TOBACCO USE > 7 YEARS AGO [facility] [place] [facility] Advance Directives: All historical and [...] Jun 02, 2023 ADVANCE DIRECTIVE JENNIFER QUIROS [facility] Encounter Notes: All associated encounter notes This section contains the clinical notes associated to the Encounter. Date/Time Encounter Note(s) Provider Source May 08, 2024 09:59 AM ADMINISTRATIVE NOTE: LOCAL TITLE: ADMINISTRATIVE NOTE STANDARD TITLE: ADMINISTRATIVE NOTE DATE OF NOTE: MAY 08, 2024@09:59 ENTRY DATE: MAY 08, 2024@09:59:55 AUTHOR: ZOYA PUENTE COSIGNER: URGENCY: STATUS: COMPLETED cancelled all upcoming physical therapy sessions stating that he doesnt feel it is helping . 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
--- OUTSIDE RECORDS SUMMARY | 2024-06-14 13:22 | XMS_ITS ---
Author Name [facility] [place] [place] Organization [facility] [place] [facility] [place] Address [address] [place] [id number] Care Team Providers Care Validation Specialist Name Role Phone TOÑO CAI Primary Care [...] PR MEDICARE SUPPLEMEN MASTER PSUED O MEDEX [facility] E Mar 19, 2004 [id number] HOLLIE SHEPHERD PATIENT [place] MED[place] SUPPLEMEN MASTER MEDEX [facility] E Mar 19, 2004 [id number] [phone] HOLLIE SHEPHERD [place] SUPPLEMEN MASTER MEDEX [facility] E Mar 19, 2004 [id number] [phone] HOLLIE SHEPHERD PATIENT BCBS [facility] MEDICARE SUPPLEMEN MASTER PSUED O MEDEX [facility] E Mar 19, 2004 [id number] HOLLIE SHEPHERD PATIENT MEDICARE (WNR) MEDICARE (M) PART B Mar 19, 2004 PART B [id number] HOLLIE SHEPHERD PATIENT MEDICARE (WNR) MEDICARE (M) PART B Mar 19, 2004 PART B [id number] [phone] HOLLIE SHEPHERD PATIENT MEDICARE (WNR) MEDICARE (M) PART B Mar 19, 2004 PART B [id number] CORAHOLLIE SILVA ALD PATIENT MEDICARE (WNR) MEDICARE (M) PART A Feb 17, 2003 PART A [id number] CORAHOLLIE SILVA ALD PATIENT MEDICARE (WNR) MEDICARE (M) PART A Feb 17, 2003 PART A [id number] HOLLIE SHEPHERD PATIENT MEDICARE (WNR) MEDICARE (M) PART A Feb 17, 2003 PART A [id number] HOLLIE SHEPHERD PATIENT MEDICARE (WNR) MEDICARE (M) PART A Feb 17, 2003 PART A [id number] HOLLIE SHEPHERD PATIENT MEDICARE (WNR) MEDICARE (M) PART B Feb 17, 2003 PART B [id number] [phone] HOLLIE SHEPHERD PATIENT MEDICARE (WNR) MEDICARE (M) PART A Feb 17, 2003 PART A [id number] [phone] HOLLIE SHEPHERD PATIENT MEDICARE (WNR) MEDICARE (M) PART B Feb 17, 2003 PART B [id number] [phone] HOLLIE SHEPHERD PATIENT Selected Encounter This section includes the information on record at [place] for the Encounter. Date/Time Encounter Type Encounter Description Reason Provider Source May 29, 2024 11:30 AM OFFICE O/P EST MOD 30 MIN ENDOCRINOLOGY ICD-10-CM M81.0 Age-related osteoporosis w/o current pathological fracture ALLIE CUELLO Mikey Encounter Template Text not used by [place] Assessments - Encounter Diagnoses This section includes the primary and secondary diagnoses documented for the Encounter. Date/Time Primary/Secondary Diagnosis Diagnosis Name Provider Source Jun 10, 2024 12:50 PM PRIMARY Age-related osteoporosis w/o current pathological fracture RALEIGHALLIE [facility] [place] [facility] Jun 10, 2024 12:50 PM SECONDARY Testicular hypofunction ALLIE CUELLO [facility] [place] [facility] Plan of Treatment: Future Appointments (+ 6 months) and Future Tests (+/- 45 days) The Plan of Treatment section includes future care activities for the [facility] This section includes future appointments and [...] 2024 12:00 PM AMBULATORY - PSYCHIATRY [facility] Jun 05, 2024 12:00 PM AMBULATORY PSYCHIATRY [facility] Jun 17, 2024 10:30 AM AMBULATORY - MEDICINE [place] [facility] [place] [facility] Aug 06, 2024 10:00 AM AMBULATORY MEDICINE [place] [facility] [place] [facility] Oct 02, 2024 12:00 PM AMBULATORY - PSYCHIATRY [facility] Oct 02, 2024 12:00 PM AMBULATORY PSYCHIATRY [facility] [place] [facility] Oct 03, 2024 02:00 PM AMBULATORY - MEDICINE [facility] [place] [facility] Nov 27, 2024 11:00 AM AMBULATORY - MEDICINE [facility] Active, Pending, and Scheduled Orders This section includes a listing of several types of active, pending, and scheduled orders, including clinic medications orders, diagnostic test orders, procedure orders and consult orders; where the start date of the order is 45 days before the date of the Encounter or 45 days after the date of theEncounter. The data comes from all [facility]. Test Date/Time Test Type Test Details Facility Name May 29, 2024 06:36 PM Consult Order PHARMACY/N HM OUTPT Cons Tar [facility]iler[facility] Choice [facility] Jun 10, 2024 11:25 AM Consult Order COMMUNITY CARE-UROLOGY Cons [facility] Lab Results: +/- 30 days [...] Range Comment Jun 04, 2024 10:27 AM [facility] HEMOGLOBIN A1C PANEL Specimen Type: BLOOD [...] May 29, 2024 06:36 PM Reporting Lab: [address] [address] Performing Lab: [address] [address] HEMOGLOBIN A1C 6.5 H 4.0-5.6 Jun 04, 2024 10:27 AM [facility] MICROALBUMIN CREATININE RATIO PANEL Specimen Type: URINE No comment entered. Ordering Provider: JUAN LUIS CAI F Report Released Date/Time: May 29, 2024 06:36 PM Reporting Lab: [address] [address] Performing Lab: [address] [address] MICROALBUMIN/C REATININE RATIO 36.0 mg/g H 0-29.9 MICROALBUMIN,Q UANTITATIVE 2.8 mg/dL RR UNAVAIL CREATININE URINE 77.84 mg/dL Jun 04, 2024 10:27 AM [facility] BASIC METABOLIC PANEL (non-fasting) Specimen Type: SERUM No comment entered. Ordering Provider: JUAN LUIS CAI F Report Released Date/Time: May 29, 2024 06:36 PM Reporting Lab: [address] [address] Performing Lab: [address] [address] UREA NITROGEN 19 mg/dL 7-25 GLUCOSE 187 mg/dL H 65-100 SODIUM 140 mmol/L 135-145 POTASSIUM 3.8 mmol/L 3.5-5.0 CHLORIDE 103 mmol/L 100-110 CO2 25 meq/L 20-30 CREATININE, Serum 0.97 mg/dL 0.50-1.40 eGFR(CKD-EPI 2020) 76 mL/min >60 Jun 04, 2024 10:27 AM [facility] LIPID PANEL, NON FASTING Specimen Type: SERUM No comment entered. Ordering Provider: JUAN LUIS CAI F Report Released Date/Time: May 29, 2024 06:36 PM Reporting Lab: [address] [address] Performing Lab: [address] [address] CHOLESTEROL 151 mg/dL TRIGLYCERIDE 146 mg/dL 0-150 LDL calculated 73 mg/dL 0-129 CHOL/HDL 3.1 HDL CHOLESTEROL 49 mg/dL 40-60 Jun 04, 2024 10:27 AM [facility] TSH Specimen Type: SERUM No comment entered. Ordering Provider: JUAN LUIS CAI Report Released Date/Time: May 29, 2024 06:36 PM Reporting Lab: [address] [address] Performing Lab: [address] [address] TSH 1.78 u[IU]/mL 0.35-5.00 Jun 04, 2024 10:27 AM [facility] LIVER FUNCTION Specimen Type: SERUM No comment entered. Ordering Provider: JUAN LUIS CAI Report Released Date/Time: May 29, 2024 06:36 PM Reporting Lab: [address] [address] Performing Lab: [address] [address] PROTEIN,TOTAL 5.5 g/dL L 6.0-8.3 ALBUMIN 3.7 g/dL 3.5-5.0 ALKALINE PHOSPHATASE 78 U/L 40-150 AST 20 U/L 5-34 ALT 19 U/L BILIRUBIN, TOTAL 1.3 mg/dL H 0.2-1.2 BILIRUBIN, DIRECT 0.5 mg/dL 0-0.5 May 08, 2024 11:24 AM [facility] TESTOSTERONE, TOTAL (WHV) Specimen Type: SERUM No comment entered. Ordering Provider: JUAN LUIS CAI F Report Released Date/Time: Aug 11, 2023 11:52 AM Reporting Lab: [facility] [address] [address] Performing Lab: [facility] [address] TESTOSTERONE, TOTAL (V) 44.33 ng/dL L 220.00-892 .00 May 08, 2024 11:24 AM [facility] LIVER FUNCTION Specimen Type: SERUM No comment entered. Ordering Provider: JUAN LUIS CAI F Report Released Date/Time: Aug 11, 2023 11:52 AM Reporting Lab: [address] [address] Performing Lab: [facility] [address] [address] PROTEIN,TOTAL 5.5 g/dL L 6.0-8.3 ALBUMIN 3.6 g/dL 3.5-5.0 ALKALINE PHOSPHATASE 71 U/L 40-150 AST 20 U/L 5-34 ALT 24 U/L BILIRUBIN, TOTAL 1.1 mg/dL 0.2-1.2 May 08, 2024 11:24 AM [facility] CBC Specimen Type: BLOOD No comment entered. Ordering Provider: JUAN LUIS CAI F Report Released Date/Time: Aug 11, 2023 11:52 AM Reporting Lab: [address] [address] Performing Lab: [address] [address] WBC 4.08 10*3/uL L 4.50-11.00 RBC 4.53 10*6/uL 4.23-5.66 HGB 13.1 g/dL 12.8-17 HCT 39.9 39.2-50.4 MCV 88.1 fL 82-99 MCHC 32.8 g/dL 30.8-35.1 PLT 130 10*3/uL L 140-360 RDW-CV 14.5 12.0-16.0 MCH 28.9 pg 26.2-32.6 May 08, 2024 11:24 AM [facility] BASIC METABOLIC PANEL (fasting) Specimen Type: SERUM No comment entered. Ordering Provider: JUAN LUIS CAI F Report Released Date/Time: Aug 11, 2023 11:52 AM Reporting Lab: [address] [address] Performing Lab: [address] [address] UREA NITROGEN 19 mg/dL 7-25 GLUCOSE 216 mg/dL H 65-100 SODIUM 142 mmol/L 135-145 POTASSIUM 3.5 mmol/L 3.5-5.0 CHLORIDE 107 mmol/L 100-110 CO2 25 meq/L 20-30 CREATININE, Serum 0.84 mg/dL 0.50-1.40 eGFR(CKD-EPI 2020) 85 mL/min >60 May 08, 2024 11:24 AM [facility] LIPID PANEL FASTING Specimen Type: SERUM No comment entered. Ordering Provider: JUAN LUIS CAI F Report Released Date/Time: Aug 11, 2023 11:52 AM Reporting Lab: [address] [address] Performing Lab: [address] [address] CHOLESTEROL 142 mg/dL TRIGLYCERIDE 179 mg/dL H 0-150 LDL calculated 64 mg/dL 0-129 CHOL/HDL 3.4 HDL CHOLESTEROL 42 mg/dL 40-60 May 08, 2024 11:24 AM [facility] CBC AND DIFF (AUTO) Specimen Type: BLOOD No comment entered. Ordering Provider: JUAN LUIS CAI Report Released Date/Time: Aug 11, 2023 11:52 AM Reporting Lab: [address] [address] Performing Lab: [facility] [address] [facility] [address] WBC 4.08 10*3/uL L 4.50-11.00 RBC 4.53 [...] 10*3/uL 0.00-0.00 May 08, 2024 11:23 AM [facility] OSMOLALITY (SERUM) Specimen Type: SERUM No comment entered. Ordering Provider: ALLIE CUELLO Report Released Date/Time: Nov 27, 2023 07:39 PM Reporting Lab: [address] [place] [address] Performing Lab: [facility] [address] [facility] [address] OSMOLALITY (SERUM) 299 280-300 May 08, 2024 11:23 AM [facility] CALCIUM Specimen Type: SERUM Comment: *GLUCOSE Not Performed: May 08, 2024@11:36 [place] [id number] *FABRICATOR SPECIAL ITEMS Reason: Duplicate *UREA NITROGEN Not Performed: May 08, 2024@11:36 by [id number] *FABRICATOR SPECIAL ITEMS Reason: Duplicate *CREATININE (eGFR 2020) Not Performed: May 08, 2024@11:36 by [id number] *FABRICATOR SPECIAL ITEMS Reason: Duplicate *SODIUM Not Performed: May 08, 2024@11:36 by [id number] *FABRICATOR SPECIAL ITEMS Reason: Duplicate *CHLORIDE Not Performed: May 08, 2024@11:36 by [id number] *FABRICATOR SPECIAL ITEMS Reason: Duplicate *CO2 Not Performed: May 08, 2024@11:36 by [id number] *FABRICATOR SPECIAL ITEMS Reason: Duplicate *POTASSIUM Not Performed: May 08, 2024@11:36 by [id number] *FABRICATOR SPECIAL ITEMS Reason: Duplicate Ordering Provider: ALLIE CUELLO Report Released Date/Time: Nov 27, 2023 07:39 PM Reporting Lab: [address] [address] Performing Lab: [address] [address] CALCIUM 8.5 mg/dL 8.5-10.2 May 08, 2024 11:23 AM [facility] VITAMIN D (25-OH) Specimen Type: SERUM No comment entered. Ordering Provider: ALLIE CUELLO Report Released Date/Time: Nov 27, 2023 07:39 PM Reporting Lab: [facility] [address] [facility] [address] Performing Lab: [address] [address] VITAMIN D (25-OH) 46 ng/mL 20-50 Vital Signs: All taken on the encounter date This section contains inpatient and outpatient Vital Signs collected on the date of the Encounter. Date/Time Temperature Pulse Blood Pressure Respiratory Rate SP02 Pain Height Weight Body Mass Index Source May 29, 2024 11:19 AM 98.1 68 108/55 16 94 5 64.5 173 29 [place] [facility] [place] [facility] Social History: Smoking Status (Most [...] VA-TOBACCO FORMER USER [place] [facility] [place] [facility] Tobacco Use History This section includes a history of the smoking, or tobacco-related health factors, that were collected on or before the date of the Encounter. The data comes from the [place] facility where the Encounter took place. Date/Time Smoking Status/Tobac co Use Comment Facility Jun 05, 2023 11:00 AM VA-TOBACCO QUIT 15 YRS OR MORE [facility] [place] [facility] Jun 06, 2022 01:00 PM VA-TOBACCO FORMER USER [facility] [place] [facility] Jun 06, 2022 01:00 PM VA-TOBACCO QUIT 15 YRS OR MORE [facility] [place] [facility] Jun 30, 2021 02:37 PM VA-TOBACCO FORMER USER [facility] [place] [facility] Jun 30, 2021 02:37 PM VA-TOBACCO QUIT 5 TO < 15 YRS [facility] [place] [facility] May 22, 2020 03:30 PM VA-TOBACCO NEVER USED [facility] [place] [facility] May 08, 2018 02:03 PM VA-TOBACCO FORMER USER [facility] [place] [facility] May 08, 2018 02:03 PM VA-TOBACCO QUIT 15 YRS OR MORE [facility] [place] [facility] November 10, 2017 02:33 PM QUIT TOBACCO USE > 7 YEARS AGO [facility] [place] [facility] October 21, 2016 01:55 PM QUIT TOBACCO USE > 7 YEARS AGO [facility] [place] [facility] Sep 18, 2015 11:24 AM QUIT TOBACCO USE > 7 YEARS AGO stopped 50 years ago [facility] [place] [facility] May 19, 2005 08:01 AM HISTORY OF SMOKING [facility] May 31, 2004 01:02 PM HISTORY OF SMOKING [facility] Jun 04, 2003 07:57 AM HISTORY OF SMOKING [facility] Jun 03, 2002 01:11 PM HISTORY OF SMOKING [facility] Jun 03, 2002 01:11 PM QUIT TOBACCO USE > 7 YEARS AGO [facility] Advance Directives: All historical and current [...] Jun 02, 2023 ADVANCE DIRECTIVE JENNIFER QUIROS [facility] Encounter Notes: All associated encounter notes This section contains the clinical notes associated to the Encounter. Date/Time Encounter Note(s) Provider Source May 29, 2024 07:35 AM PHYSICIAN NOTE: LOCAL TITLE: MD NOTE STANDARD TITLE: PHYSICIAN NOTE DATE OF NOTE: MAY 29, 2024@07:35 ENTRY DATE: MAY 29, 2024@07:35:29 AUTHOR: ALLIE CUELLO COSIGNER: URGENCY: STATUS: COMPLETED CC: Osteoporosis, hypogonadism HPI: Followed by non [place] full time for DM. No falls or fractures. Calcium fills 12/23, 05/08. Taking OTC vitamin D 50 mcg daily. Received denosumab today. Relates that he is very consistent with DM and is using a pill organizer. Being treated with prednisone by rheumatology. Confirmed calcium doses. From previous notes. Rising PSA. Testosterone was discontinued, and pt was referred to Urology. States he was told he likely had early prostate CA, no surgery at this time needed. All recent endocrine labs were reviewed with the patient. May 08, 2024@11:24 TESTOSTERONE, TOTAL (WHV):44.33 L ng/dL 220.00 - 892.00 May 08 2024 HGB 13.1 g/dL 12.8 - 17 HCT 39.9 % 39.2 - 50.4 May 08 May 08 20242023 GLUCOSE 216 H mg/dL 65 - 100 BUN 19 mg/dL 7 - 25 CREATININE 0.84 mg/dL .5 - 1.4 Sodium 142 mmol/L 135 - 145 K+/Pot 3.5 mmol/L 3.5 - 5 CL 107 mmol/L 100 - 110 CO2 25 mEq/L 20 - 30 CA 8.5 mg/dL 8.5 - 10.2 Alb 3.6 May 08, 2024@11:23 VITAMIN D (25-OH): 46 ng/mL 20 - 50 Active problems - Computerized Problem List is the source for the followin. Elevated PSA 2. Aortic Valve Disorder (SCT 3058431) 3. Cerebrovascular disease 4. Chronic recurrent major depressive disorder 5. Insulin pump present 6. Hypertension 7. Family history of cancer of colon 8. Testicular hypofunction 9. Osteoporosis 10. Major depressive disorder 11. RA - Rheumatoid arthritis 12. History of colonic polyp 13. Diverticular disease of colon 14. Adjustment disorder 15. Hemorrhoids 16. Polymyalgia Rheumatica 17. Microscopic Hematuria 18. Rosacea 19. Hypertension (SNOMED CT 23763363) 20. Spinal Stenosis * 21. Hyperlipidemia (SNOMED CT 74917183) 22. Osteoarthritis * 23. Lower Back Pain * 24. Vertigo 25. Diabetes mellitus type 2 (SNOMED CT 55485005) 26. Gastroesophageal Reflux Disorder Active Outpatient Medications (including Supplies): Active Outpatient Medications Status 1) ATORVASTATIN CALCIUM 80MG TAB TAKE ONE-HALF TABLET BY MOUTH ACTIVE (S) ONCE DAILY Indication: FOR HIGH CHOLESTEROL 2) CALCIUM 200MG (CA CITRATE-950MG) TAB TAKE FOUR TABLETS BY ACTIVE MOUTH TWICE DAILY Indication: FOR OSTEOPOROSIS 3) CITALOPRAM HYDROBROMIDE 10MG TAB TAKE ONE-HALF TABLET BY ACTIVE MOUTH ONCE DAILY FOR DEPRESSION AND ANXIETY Indication: FOR MAJOR DEPRESSIVE DISORDER 4) DENOSUMAB 60MG/ML INJ SYRINGE 1ML INJECT 60MG/1ML ACTIVE SUBCUTANEOUSLY ONE TIME Indication: FOR OSTEOPOROSIS 5) GLUCOSE 4GM CHEW TAB CHEW ONE TABLET BY MOUTH EVERY DAY ACTIVE NEEDED Indication: FOR LOW BLOOD SUGAR 6) HYDROXYCHLOROQUINE SULFATE 200MG TAB TAKE TWO TABLETS BY ACTIVE MOUTH ONCE DAILY 5 DAYS A WEEK, AND 1 TABLET DAILY 2 DAYS A WEEK. 7) KETOCONAZOLE 2% CREAM APPLY A THIN LAYER TOPICALLY TWICE ACTIVE DAILY APPLY TO AFFECTED AREAS ON FACE TWICE DAILY FOR 4 WEEKS, THEN NEEDED Indication: RASH 8) KETOCONAZOLE 2% SHAMPOO SHAMPOO SMALL AMOUNT TOPICALLY TWICE ACTIVE A WEEK NEEDED APPLY FOR 8 WEEKS, THEN NEEDED Indication: SCALP RASH 9) LEFLUNOMIDE 20MG TAB TAKE ONE TABLET BY MOUTH ONCE DAILY ACTIVE 10) MULTIVIT/OPHTH AREDS2/LUTE/ZEAX CAP/TAB TAKE 1 CAPSULE BY ACTIVE MOUTH TWICE DAILY IN THE MORNING AND EVENING, WITH FOOD 11) PREDNISONE 2.5MG TAB TAKE THREE TABLETS BY MOUTH ONCE DAILY ACTIVE 12) TAMSULOSIN HCL 0.4MG CAP TAKE TWO CAPSULES BY MOUTH AT ACTIVE (S) BEDTIME 13) TOCILIZUMAB 162MG/0.9ML INJ SYR 0.9ML INJECT 162MG ACTIVE SUBCUTANEOUSLY EVERY 2 WEEKS Active Non-VA Medications Status 1) Non-VA ACETAMINOPHEN TAB BY MOUTH ONCE DAILY NEEDED ACTIVE 2) Non-VA AMLODIPINE BESYLATE 2.5MG TAB 2.5MG BY MOUTH ONCE ACTIVE DAILY 3) Non-VA ASPIRIN 81MG EC TAB 81MG BY MOUTH ONCE DAILY ACTIVE 4) Non-VA CHOLECALCIF 50MCG (D3-2,000UNIT) TAB 50MCG BY MOUTH ACTIVE ONCE DAILY 5) Non-VA CYCLOBENZAPRINE HCL 10MG TAB 10MG BY MOUTH TWICE ACTIVE DAILY 6) Non-VA DOCUSATE NA 100MG CAP 100MG BY MOUTH TWICE DAILY ACTIVE 7) Non-VA FUROSEMIDE 20MG TAB 20MG BY MOUTH ONCE DAILY ACTIVE 8) Non-VA LOSARTAN 100MG TAB 100MG BY MOUTH DAILY ACTIVE 9) Non-VA OMEPRAZOLE 20MG EC CAP 20MG BY MOUTH EVERY DAY ACTIVE 10) Non-VA PILOCARPINE HCL 5MG TAB 5MG BY MOUTH TWICE DAILY ACTIVE 23 Total Medications SHx: Lives alone. Two children are nearby ROS: No cough or fever PE: affect pleasant appropriate speaking easily in full sentences A/P: Active problems - Computerized Problem List is the source for the followin. Osteoporosis Reviewed role of full calcium and vitamin D supplementation to prevent bone loss. Denosumab today. Reviewed fall prevention in home. Bath has been remodeled. Hypogonadism No testosterone at this time. Lab: calcium vitamin D BMP Osmoles next visit Six months FTF Medication Reconciliation: Outpatient: Has the patient been taking medications as documented in the EMLR? No: Discrepencies were identified. See below. Essential Medication List for Review used to complete this medication reconciliation. INCLUDED IN THIS LIST: Alphabetical list of active outpatient prescriptions dispensed from this VA (local) and dispensed from another VA or [facility] facility (remote) as well as [...] Remote Allergy/ADR Data available for this patient [facility] [place] [facility] METFORMIN [facility] [place] [facility] PENICILLIN [facility] [place] [facility] ZOSYN Med Recon NoGlossary (Tool #1) INCLUDED IN THIS LIST: Alphabetical list of active outpatient prescriptions dispensed from this VA (local) and dispensed from another VA or [facility] facility (remote) as well as inpatient orders (local pending and active), local clinic medications, locally documented non-VA medications, and local prescriptions that have or been discontinued in the past 90 days. Non-VA Meds Last Documented On: Oct 09, 2023 NOTE The display of VA prescriptions dispensed from another [place] or [facility] facility (remote) is limited to active outpatient prescription entries matched to National Drug File at the originating site and may not include some items such as investigational drugs, compounds, etc. NOT INCLUDED IN THIS LIST: Medications self-entered by the patient into personal health records (i.e. [employer]) are NOT included in this list. Non-VA medications documented outside this [place], remote inpatient orders (regardless of status) and [...] ONE-HALF TABLET BY MOUTH ONCE DAILY Rx# [id number] Last Released: 04/03/24 Qty/Days Supply: 45 Rx Expiration Date: 02/27/25 Refills Remainin Indication: FOR HIGH CHOLESTEROL OUTPT CALCIUM 200MG (CA CITRATE-950MG) TAB (Status = Active) TAKE FOUR TABLETS BY MOUTH TWICE DAILY Rx# [id number] Last Released: 05/08/24 Qty/Days Supply: 800/90 Rx Expiration Date: 11/27/24 Refills Remainin Indication: FOR OSTEOPOROSIS Non-VA CHOLECALCIF 50MCG (D3-2,000UNIT) TAB TAKE ONE TABLET BY MOUTH ONCE DAILY Aug 11, 2020 Non-VA medication not recommended by VA provider. OUTPT CITALOPRAM HYDROBROMIDE 10MG TAB (Status = Active) TAKE ONE-HALF TABLET BY MOUTH ONCE DAILY FOR DEPRESSION AND ANXIETY Rx# [id number] Last Released: 05/28/24 Qty/Days Supply: Rx Expiration Date: 02/28/25 Refills Remainin Indication: FOR MAJOR DEPRESSIVE DISORDER Non-VA CYCLOBENZAPRINE HCL 10MG TAB TAKE ONE TABLET BY MOUTH TWICE DAILY OUTPT DENOSUMAB 60MG/ML INJ SYRINGE 1ML (Status = Active) INJECT 60MG/1ML SUBCUTANEOUSLY ONE TIME FOR OSTEOPOROSIS Rx# [id number] Last Released: 05/07/24 Qty/Days Supply: 07/18 Rx Expiration Date: 05/30/24 Refills Remainin Indication: FOR OSTEOPOROSIS Non-VA DOCUSATE NA 100MG CAP TAKE 1 CAPSULE BY MOUTH TWICE DAILY Non-VA FUROSEMIDE 20MG TAB TAKE ONE TABLET BY MOUTH ONCE DAILY OUTPT GLUCOSE 4GM CHEW TAB (Status = Active) CHEW ONE TABLET BY MOUTH EVERY DAY NEEDED FOR LOW BLOOD SUGAR Rx# [id number] Last Released: 04/08/24 Qty/Days Supply: Rx Expiration Date: 04/03/25 Refills Remainin Indication: FOR LOW BLOOD SUGAR OUTPT HYDROXYCHLOROQUINE SULFATE 200MG TAB (Status = Active) TAKE TWO TABLETS BY MOUTH ONCE DAILY 5 DAYS A WEEK, AND 1 TABLET DAILY 2 DAYS A WEEK. Rx# [id number] Last Released: 05/23/24 Qty/Days Supply: Rx Expiration Date: 08/19/24 Refills Remainin OUTPT INSULIN,ASPART,HUMAN 100 UNIT/ML INJ (Status = ) INJECT 80 UNITS SUBCUTANEOUSLY EVERY DAY DIRECTED FOR USE WITH CONTINUOUS SUBCUTANEOUS INSULIN INFUSION DEVICE Rx# [id number] Last Released: 01/24/24 Qty/Days Supply: Rx Expiration Date: 04/17/24 Refills Remainin OUTPT KETOCONAZOLE 2% CREAM (Status = Active) APPLY A THIN LAYER TOPICALLY TWICE DAILY RASH APPLY TO AFFECTED AREAS ON FACE TWICE DAILY FOR 4 WEEKS, THEN NEEDED Rx# [id number] Last Released: 07/21/23 Qty/Days Supply: Rx Expiration Date: 07/13/24 Refills Remainin Indication: RASH OUTPT KETOCONAZOLE 2% SHAMPOO (Status = Active) SHAMPOO SMALL AMOUNT TOPICALLY TWICE A WEEK NEEDED APPLY FOR 8 WEEKS, THEN NEEDED Rx# [id number] Last Released: 07/21/23 Qty/Days Supply: 240/30 Rx Expiration Date: 07/13/24 Refills Remainin Indication: SCALP RASH OUTPT LEFLUNOMIDE 10MG TAB (Status = Discontinued) TAKE ONE TABLET BY MOUTH ONCE DAILY FOR 14 DAYS, THEN TAKE TWO TABLETS ONCE DAILY Rx# [id number] Last Released: 03/26/24 Qty/Days Supply: 6030 Rx Expiration Date: 03/26/25 Refills Remainin OUTPT LEFLUNOMIDE 20MG TAB (Status = Active) TAKE ONE TABLET BY MOUTH ONCE DAILY Rx# [id number] Last Released: 05/02/24 Qty/Days Supply: 9090 Rx Expiration Date: 07/29/24 Refills Remainin Non-VA LOSARTAN 100MG TAB TAKE ONE TABLET BY MOUTH DAILY OUTPT MULTIVIT/OPHTH AREDS2/LUTE/ZEAX CAP/TAB (Status = Discontinued) TAKE 1 CAPSULE BY MOUTH TWICE DAILY IN THE MORNING AND EVENING, WITH FOOD Rx# [id number] Last Released: 02/26/24 Qty/Days Supply: 120/60 Rx Expiration Date: 03/29/24 Refills Remainin OUTPT MULTIVIT/OPHTH AREDS2/LUTE/ZEAX CAP/TAB (Status = Active) TAKE 1 CAPSULE BY MOUTH TWICE DAILY IN THE MORNING AND EVENING, WITH FOOD Rx# [id number] Last Released: 05/02/24 Qty/Days Supply: 120/60 Rx Expiration Date: 04/30/25 Refills Remainin Non-VA OMEPRAZOLE 20MG EC CAP TAKE 1 CAPSULE BY MOUTH EVERY DAY OUTPT OXYCODONE HCL 5MG TAB NOT SA (Status = ) TAKE ONE TABLET BY MOUTH EVERY 6 HOURS NEEDED FOR SEVERE PAIN Rx# [id number] Last Released: 02/21/24 Qty/Days Supply: 16 Rx Expiration Date: 03/19/24 Refills Remainin Non-VA PILOCARPINE HCL 5MG TAB TAKE ONE TABLET BY MOUTH TWICE DAILY Dec 04, 2020 Non-VA medication not recommended by VA provider. OUTPT PREDNISONE 10MG TAB (Status = Discontinued) TAKE ONE TABLET BY MOUTH ONCE DAILY Rx# [id number] Last Released: 04/18/24 Qty/Days Supply: 90 Rx Expiration Date: 07/09/24 Refills Remainin OUTPT PREDNISONE 1MG TAB (Status = Discontinued) TAKE FOUR TABLETS BY MOUTH ONCE DAILY Rx# [id number] Last Released: 12/29/23 Qty/Days Supply: 12030 Rx Expiration Date: 10/16/24 Refills Remainin OUTPT PREDNISONE 1MG TAB (Status = Discontinued) TAKE FOUR TABLETS BY MOUTH ONCE DAILY Rx# [id number] Last Released: 03/01/24 Qty/Days Supply: 12030 Rx Expiration Date: 02/26/25 Refills Remainin OUTPT PREDNISONE 2.5MG TAB (Status = Active) TAKE THREE TABLETS BY MOUTH ONCE DAILY Rx# [id number] Last Released: 05/28/24 Qty/Days Supply: Rx Expiration Date: 04/30/25 Refills Remainin OUTPT TAMSULOSIN HCL 0.4MG CAP (Status = Active/Suspended) TAKE TWO CAPSULES BY MOUTH AT BEDTIME Rx# [id number] Last Released: 04/27/24 Qty/Days Supply: 180 Rx Expiration Date: 01/22/25 Refills Remainin OUTPT TOCILIZUMAB 162MG/0.9ML INJ SYR 0.9ML (Status = Discontinued) INJECT 162MG SUBCUTANEOUSLY EVERY 2 WEEKS Rx# [id number] Last Released: 03/14/24 Qty/Days Supply: 08/16 Rx Expiration Date: 11/17/24 Refills Remainin OUTPT TOCILIZUMAB 162MG/0.9ML INJ SYR 0.9ML (Status = Active) INJECT 162MG SUBCUTANEOUSLY EVERY 2 WEEKS Rx# [id number] Last Released: 05/09/24 Qty/Days Supply: 08/16 Rx Expiration Date: 04/12/25 Refills Remainin SUPPLIES OUTPT NEEDLE 18G 1IN (Status = ) USE 1 NEEDLE EVERY 7 DAYS FOR INJECTION Rx# [id number] Last Released: 07/21/23 Qty/Days Supply: Rx Expiration Date: 04/27/24 Refills Remainin OUTPT NEEDLE 23G 1IN (Status = ) USE 1 NEEDLE EVERY 7 DAYS FOR INJECTION Rx# [id number] Last Released: 07/20/23 Qty/Days Supply: Rx Expiration Date: 04/27/24 Refills Remainin OUTPT SYRINGE 1ML LUER LOCK TIP (Status = ) USE 1 SYRINGE EVERY 7 DAYS Rx# [id number] Last Released: 07/13/23 Qty/Days Supply: Rx Expiration Date: 04/27/24 Refills RemaininYony ramirez/ ALLIE CUELLO MD STAFF PHYSICIAN Signed: 05/29/2024 11:31 ALLIE [facility]UE[facility]
--- OUTSIDE RECORDS SUMMARY | 2024-06-14 13:22 | XMS_ITS | Encounter Summary ---
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 Name Role Phone TOÑO CAI Primary Care [...] Relationship to Policy Wen [place] MED[place] SUPPLEMEN MASTER PSUED O MEDEX BRONZ E Mar 19, 2004 [id number] HOLLIE SHEPHERD PATIENT [place] SUPPLEMEN MASTER MEDEX BRONZ E Mar 19, 2004 [id number] [phone] HOLLIE SHEPHER[place] SUPPLEMEN MASTER MEDEX BRONZ E Mar 19, 2004 [id number] [phone] HOLLIE SHEPHERD PATIENT BCBS [facility] MEDICARE SUPPLEMEN MASTER PSUED O MEDEX BRONZ E Mar 19, 2004 [id number] HOLLIE SHEPHERD PATIENT MEDICARE (WNR) MEDICARE (M) PART B Mar 19, 2004 PART B [id number] HOLLIE SHEPHERD PATIENT MEDICARE (WNR) MEDICARE (M) PART B Mar 19, 2004 PART B [id number] HOLLIE SHEPHERD ALD PATIENT MEDICARE (WNR) MEDICARE (M) PART B Mar 19, 2004 PART B [id number] HOLLIE SHEPHERD ALD PATIENT MEDICARE (WNR) MEDICARE (M) PART A Feb 17, 2003 PART A [id number] [phone] HOLLIE SHEPHERD ALD PATIENT MEDICARE (WNR) MEDICARE (M) PART A Feb 17, 2003 PART A [id number] HOLLIE SHEPHERD ALD PATIENT MEDICARE (WNR) MEDICARE (M) PART A Feb 17, 2003 PART A [id number] HOLLIE SHEPHERD PATIENT MEDICARE (WNR) MEDICARE (M) PART A Feb 17, 2003 PART A [id number] [phone] HOLLIE SHEPHERD PATIENT MEDICARE (WNR) MEDICARE (M) PART B Feb 17, 2003 PART B [id number] [phone] HOLLIE HSEPHERD PATIENT MEDICARE (WNR) MEDICARE (M) PART A Feb 17, 2003 PART A [id number] HOLLIE SHEPHERD PATIENT MEDICARE (WNR) MEDICARE (M) PART B Feb 17, 2003 PART B [id number] HOLLIE SHEPHERD PATIENT Selected Encounter This section includes the information on record at [place] for the Encounter. Date/Time Encounter Type Encounter Description Reason Pro vider Source Apr 12, 2024 12:00 AM Outpatient Encounter COMMUNITY CARE CONSULT IHE Encounter Template Text not used by VA Plan of Treatment: Future Appointments (+ 6 [...] Appointment Type Appointme nt Facility Name Apr 16, 2024 10:00 AM AMBULAT[facility] [place] [facility] May 02, 2024 10:00 AM [facility] [place] [facility] May 08, 2024 10:00 AM AMBULATORY - [facility]ICIN [facility] [place] [facility] May 29, 2024 11:30 AM AMBULATORY - MEDICINE [facility] [place] [facility] Jun 05, 2024 12:00 PM [facility] [facility] Jun 05, 2024 12:00 PM AMBULATORY - PS[facility]CHIATRY [facility] [place] [facility] Jun 17, 2024 10:30 AM AMBULATORY - MEDICINE [facility] [place] [facility] Aug 06, 2024 10:00 AM AMBULATORY - MEDICINE [facility] [place] [facility] Oct 02, 2024 12:00 PM [place] [facility] Oct 02, 2024 12:00 PM AMBULATORY - PS[facility]IATRY [facility] [place] [facility] Oct 03, 2024 02:00 PM AMBULATORY - MEDICINE [facility] [place] [facility] Lab Results: +/- 30 days of [...] Range Comment May 08, 2024 11:24 AM [facility] TESTOSTERONE, TOTAL (WHV) Specimen Type: SERUM No comment entered. Ordering Provider: JACINTO CAI Report Released Date/Time: Aug 11, 2023 11:52 AM Reporting [facility] [address] [address] Performing Lab: [facility] [address] [facility] [address] TESTOSTERONE, TOTAL (WHV) 44.33 ng/dL L 220.00-892. 00 May 08, 2024 11:24 AM [facility] LIPID PANEL FASTING Specimen Type: SERUM No comment entered. Ordering Provider: JACINTO CAI Report Released Date/Time: Aug 11, 2023 11:52 AM Reporting Lab: [facility] [address] [facility] [address] Performing Lab: [address] [address] CHOLESTEROL 142 mg/dL TRIGLYCERIDE 179 mg/dL H 0-150 LDL calculated 64 mg/dL 0-129 CHOL/HDL 3.4 HDL CHOLESTEROL 42 mg/dL 40-60 May 08, 2024 11:24 AM [facility] LIVER FUNCTION Specimen Type: SERUM No comment entered. Ordering Provider: JACINTO CAI Report Released Date/Time: Aug 11, 2023 11:52 AM Reporting Lab: [address] [address] Performing Lab: [address] [address] PROTEIN,TOTAL 5.5 g/dL L 6.0-8.3 ALBUMIN 3.6 g/dL 3.5-5.0 ALKALINE PHOSPHATASE 71 U/L 40-150 AST 20 U/L 5-34 ALT 24 U/L BILIRUBIN, TOTAL 1.1 mg/dL 0.2-1.2 May 08, 2024 11:24 AM [facility] CBC Specimen Type: BLOOD No comment entered. Ordering Provider: JACINTO CAI Report Released Date/Time: Aug 11, 2023 11:52 AM Reporting Lab: [address] [address] Performing Lab: [address] [address] WBC 4.08 10*3/uL L 4.50-11.00 RBC 4.53 10*6/uL 4.23-5.66 HGB 13.1 g/dL 12.8-17 HCT 39.9 39.2-50.4 MCV 88.1 fL 82-99 MCHC 32.8 g/dL 30.8-35.1 PLT 130 10*3/uL L 140-360 RDW-CV 14.5 12.0-16.0 MCH 28.9 pg 26.2-32.6 May 08, 2024 11:24 AM [facility] BASIC METABOLIC PANEL (fasting) Specimen Type: SERUM No comment entered. Ordering Provider: JACINTO CAI Report Released Date/Time: Aug 11, 2023 11:52 AM Reporting Lab: [address] [address] Performing Lab: [address] [address] UREA NITROGEN 19 mg/dL 7-25 GLUCOSE 216 mg/dL H 65-100 SODIUM 142 mmol/L 135-145 POTASSIUM 3.5 mmol/L 3.5-5.0 CHLORIDE 107 mmol/L 100-110 CO2 25 meq/L 20-30 CREATININE, Serum 0.84 mg/dL 0.50-1.40 eGFR(CKD-EPI 2020) 85 mL/min >60 May 08, 2024 11:24 AM [facility] CBC AND DIFF (AUTO) Specimen Type: BLOOD No comment entered. Ordering Provider: JACINTO CAI Report Released Date/Time: Aug 11, 2023 11:52 AM Reporting Lab: [address] [address] Performing Lab: [address] [address] WBC 4.08 10*3/uL L 4.50-11.00 RBC 4.53 [...] 10*3/uL 0.00-0.00 May 08, 2024 11:23 AM [facility] OSMOLALITY (SERUM) Specimen Type: SERUM No comment entered. Ordering Provider: ALLIE CUELLO Report Released Date/Time: Nov 27, 2023 07:39 PM Reporting Lab: [facility] [address] [facility] [address] Performing Lab: [facility] [address] [address] OSMOLALITY (SERUM) 299 280-300 May 08, 2024 11:23 AM [facility] CALCIUM Specimen Type: SERUM Comment: *GLUCOSE Not Performed: May 08, 2024@11:36 by [id number] *MARBLE SETTER Reason: Duplicate *UREA NITROGEN Not Performed: May 08, 2024@11:36 by [id number] *MARBLE SETTER Reason: Duplicate *CREATININE (eGFR 2020) Not Performed: May 08, 2024@11:36 by [id number] *MARBLE SETTER Reason: Duplicate *SODIUM Not Performed: May 08, 2024@11:36 by [id number] *MARBLE SETTER Reason: Duplicate *CHLORIDE Not Performed: May 08, 2024@11:36 by [id number] *MARBLE SETTER Reason: Duplicate *CO2 Not Performed: May 08, 2024@11:36 by [id number] *MARBLE SETTER Reason: Duplicate *POTASSIUM Not Performed: May 08, 2024@11:36 by [id number] *MARBLE SETTER Reason: Duplicate Ordering Provider: ALLIE CUELLO Report Released Date/Time: Nov 27, 2023 07:39 PM Reporting Lab: [facility] [address] [facility] [address] Performing [facility]: [facility] [address] [facility] [address] CALCIUM 8.5 mg/dL 8.5-10.2 May 08, 2024 11:23 AM [facility] VITAMIN D (25-OH) Specimen Type: SERUM No comment entered. Ordering Provider: ALLIE CUELLO Report Released Date/Time: Nov 27, 2023 07:39 PM Reporting Lab: [facility] [address] [facility] [address] Performing [facility]: [facility] [address] [facility] [address] VITAMIN D (25-OH) 46 ng/mL 20-50 Social [...] took place. Date/Time Current Smoking Status Comment [facility] Jun 05, 2023 11:00 AM VA-TOBACCO [facility] Tobacco Use History This section includes a history of the smoking, or tobacco-related health factors, that were collected on or before the date of the Encounter. The data comes from the [place] facility where the Encounter took place. Date/Time Smoking Status/Tobac co Use Comment Facility Jun 05, 2023 11:00 AM VA-TOBACCO QUIT 15 YRS OR MORE [place] [facility] [place] [facility] Jun 06, 2022 01:00 PM VA-TOBACCO FORMER USER [place] [facility] [place] [facility] Jun 06, 2022 01:00 PM VA-TOBACCO QUIT 15 YRS OR MORE [place] [facility] [place] [facility] Jun 30, 2021 02:37 PM [facility]ACCO [facility] [place] [facility] Jun 30, 2021 02:37 PM VA-TOBACCO QUIT 5 TO < 15 YRS [place] [facility] [place] [facility] May 22, 2020 03:30 PM VA-TOBACCO NEVER USED [place] [facility] [place] [facility] May 08, 2018 02:03 PM VA-TOBACCO FORMER USER [place] [facility] [place] [facility] May 08, 2018 02:03 PM VA-TOBACCO QUIT 15 YRS OR MORE [place] [facility] [place] [facility] November 10, 2017 02:33 PM QUIT TOBACCO USE > 7 YEARS AGO [place] [facility] [facility] October 21, 2016 01:55 PM QUIT TOBACCO USE > 7 YEARS AGO [place] [facility] [place] [facility] Sep 18, 2015 11:24 AM QUIT TOBACCO USE > 7 YEARS AGO stopped 50 years ago [place] [facility] [place] [facility] May 19, 2005 08:01 AM HISTORY OF SMOKING [place] [facility] [place] [facility] May 31, 2004 01:02 PM HISTORY OF SMOKING [place] [facility] [place] [facility] Jun 04, 2003 07:57 AM HISTORY OF SMOKING [place] [facility] [place] [facility] Jun 03, 2002 01:11 PM [facility] OF SMOKING [place] [facility] Jun 03, 2002 01:11 PM QUIT TOBACCO USE > 7 YEARS AGO [facility] Advance Directives: All historical and current [...] ADVANCE DIRECTIVE JENNIFER QUIROS [place] [facility] Radiology Reports: +/- 30 days of [...] comes from all [place] treatment facilities. Date/Time Radiology Report Provider Source Apr 02, 2024 02:24 PM SHOULDER,COMPLETE(RIGHT): BEBO SHEPHERD [id number] [phone] M Exm Date: APR 02, 2024@14:24 Req Phys: TOÑO CAI Loc: CWM/NO/PACT 3 (Req'g Loc) Img Loc: DCM/BUILDING 1 Service: [place] [address] (Case 50 COMPLETE) SHOULDER,COMPLETE(RIGHT) (RAD Detailed) CPT:22425 Reason for Study: lateral pain after a fall last week. Clinical History: Report Status: Verified Date Reported: APR 02, 2024 Date Verified: APR 02, 2024 Electrician Outside E-Sig:/ES/NAPOLEON ELLIOTT JR Report: Study: AP internally [...] Primary Interpreting Staff: NAPOLEON ELLIOTT JR, Radiologist (Electrician Outside) /NAPOLEON SCHMITZ JR [facility] Encounter Notes: All associated encounter notes This section contains the clinical notes associated to the Encounter. Date/Time Encounter Note(s) Provider Source Apr 12, 2024 12:00 AM NONVA CONSULT: LOCAL TITLE: COMMUNITY CARE-CONSULT RESULT NOTE STANDARD TITLE: NONVA CONSULT DATE OF NOTE: APR 12, 2024 ENTRY DATE: MAY 11, 2024@15:21:27 AUTHOR: JENNIFER QUIROS COSIGNER: URGENCY: STATUS: COMPLETED VistA Imaging - Scanned Document SCANNED DOCUMENT SIGNATURE NOT REQUIRED Electronically Filed: 05/11/2024 by: JENNIFER BOWERS [facility]
--- OUTSIDE RECORDS SUMMARY | 2024-06-14 13:22 | XMS_ITS | Encounter Summary ---
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 Role Phone TOÑO CAI Primary [...] O MEDEX BRONZ E Mar 19, 2004 [id number] HOLLIE SHEPHERD PATIENT [place] SUPPLEMEN MASTER MEDEX BRONZ E Mar 19, 2004 [id number] [phone] HOLLIE SHEPHERD PATIENT [place] SUPPLEMEN MASTER MEDEX BRONZ E Mar 19, 2004 [id number] [phone] HOLLIE SHEPHERD PATIENT BCBS [facility] MEDICARE SUPPLEMEN MASTER PSUED O MEDEX BRONZ E Mar 19, 2004 [id number] [phone] HOLLIE SHEPHERD PATIENT MEDICARE (WN) MEDICARE (M) PART B Mar 19, 2004 PART B [id number] HOLLIE SHEPHERD PATIENT MEDICARE (WNR) MEDICARE (M) PART B Mar 19, 2004 PART B [id number] HOLLIE SHEPHERD ALD PATIENT MEDICARE (WNR) MEDICARE (M) PART B Mar 19, 2004 PART B [id number] [phone] HOLLIE SHEPHERD PATIENT MEDICARE (WNR) MEDICARE (M) PART A Feb 17, 2003 PART A [id number] [phone] HOLLIE SHEPHERD ALD PATIENT MEDICARE (WNR) MEDICARE (M) PART A Feb 17, 2003 PART A [id number] [phone] HOLLIE SHEPHERD ALD PATIENT MEDICARE (WNR) MEDICARE (M) PART A Feb 17, 2003 PART A [id number] HOLLIE SHEPHERD PATIENT MEDICARE (WNR) MEDICARE (M) PART A Feb 17, 2003 PART A [id number] HOLLIE SHEPHERD PATIENT MEDICARE (WNR) MEDICARE (M) PART B Feb 17, 2003 PART B [id number] [phone] HOLLIE SHEPHERD PATIENT MEDICARE (WNR) MEDICARE () PART A Feb 17, 2003 PART A [id number] HOLLIE SHEPHERD PATIENT MEDICARE (WNR) MEDICARE (M) PART B Feb 17, 2003 PART B [id number] HOLLIE SHEPHERD PATIENT Selected Encounter This section includes the information on record at [place] for the Encounter. Date/Time Encounter Type Encounter Description Reason Provider Source May 29, 2024 11:20 AM DENOSUMAB INJECTION GENERAL INTERNAL MEDICINE ICD-10-CM M81.0 Age-related osteoporosis w/o current pathological fracture GABY ARIAS E Encounter Template Text not used by [place] Assessments - Encounter Diagnoses This section includes the primary and secondary diagnoses documented for the Encounter. Date/Time Primary/Secondary Diagnosis Diagnosis Name Provider Source May 29, 2024 11:20 AM PRIMARY Age-related osteoporosis w/o current pathological fracture GABY ARIAS [place] [facility] [place] [facility] Plan of Treatment: Future Appointments (+ 6 months) and Future Tests (+/- 45 days) The Plan of Treatment section includes future care activities for the patient from [facility] [place] [facility]. This section includes future appointments and future [...] PM AMBULATORY - [place]RY [place] [facility] Jun 05, 2024 12:00 PM AMBULATORY - PS[place]CHIATRY [place] [facility] [place] [facility] Jun 17, 2024 10:30 AM AMBULATORY - MEDICINE [place] [facility] [place] [facility] Aug 06, 2024 10:00 AM AMBULATORY - MEDICINE [place] [facility] [place] [facility] Oct 02, 2024 12:00 PM AMBULATORY [place] [facility] Oct 02, 2024 12:00 PM AMBULATORY - PS[place]CHIATRY [place] [facility] [place] [facility] Oct 03, 2024 02:00 PM AMBULATORY - MEDICINE [place] [facility] [place] [facility] Nov 27, 2024 11:00 AM AMBULATORY - MEDICINE [place] [facility] [place] [facility] Active, Pending, and Scheduled Orders This section includes a listing of several types of active, pending, and scheduled orders, including clinic medications orders, diagnostic test orders, procedure orders and consult orders; where the start date of the order is 45 days before the date of the Encounter or 45 days after the date of theEncounter. The data comes from all [place] treatment [facility]. Test Date/Time Test Type Test Details Facility Name May 29, 2024 06:36 PM Consult Order PHARMACY/N HM OUTPT Cons Surgery Consultant's Choice [place] [facility] [place] [facility] Jun 10, 2024 11:25 AM Consult Order COMMUNITY CARE-UROLOGY Cons Surgery Consultant's Choice [place] [facility] [place] [facility] Lab Results: +/- 30 days of [...] Range Comment Jun 04, 2024 10:27 AM [facility] HEMOGLOBIN A1C PANEL Specimen Type: BLOOD [...] May 29, 2024 06:36 PM Reporting [facility]: [facility] [address] [address] Performing Lab: [address] [address] HEMOGLOBIN A1C 6.5 H 4.0-5.6 Jun 04, 2024 10:27 AM [facility] MICROALBUMIN CREATININE RATIO PANEL Specimen Type: URINE No comment entered. Ordering Provider: JUAN LUIS CAI F Report Released Date/Time: May 29, 2024 06:36 PM Reporting Lab: [facility] [address] [address] Performing [facility]: [facility] [address] [address] MICROALBUMIN/C REATININE RATIO 36.0 mg/g H 0-29.9 MICROALBUMIN,Q UANTITATIVE 2.8 mg/dL RR UNAVAIL CREATININE URINE 77.84 mg/dL Jun 04, 2024 10:27 AM [facility] TSH Specimen Type: SERUM No comment entered. Ordering Provider: JUAN LUIS CAI F Report Released Date/Time: May 29, 2024 06:36 PM Reporting Lab[facility] [address] [address] Performing [facility]: [facility] [address] TSH 1.78 u[IU]/mL 0.35-5.00 Jun 04, 2024 10:27 AM [facility] LIPID PANEL, NON FASTING Specimen Type: SERUM No comment entered. Ordering Provider: JUAN LUIS CAI F Report Released Date/Time: May 29, 2024 06:36 PM Reporting Lab: [facility] [address] [address] Performing Lab: [address] [address] CHOLESTEROL 151 mg/dL TRIGLYCERIDE 146 mg/dL 0-150 LDL calculated 73 mg/dL 0-129 CHOL/HDL 3.1 HDL CHOLESTEROL 49 mg/dL 40-60 Jun 04, 2024 10:27 AM [facility] LIVER FUNCTION Specimen Type: SERUM No comment entered. Ordering Provider: JUAN LUIS CAIM F Report Released Date/Time: May 29, 2024 06:36 PM Reporting Lab: [address] [address] Performing Lab: [address] [address] PROTEIN,TOTAL 5.5 g/dL L 6.0-8.3 ALBUMIN 3.7 g/dL 3.5-5.0 ALKALINE PHOSPHATASE 78 U/L 40-150 AST 20 U/L 5-34 ALT 19 U/L BILIRUBIN, TOTAL 1.3 mg/dL H 0.2-1.2 BILIRUBIN, DIRECT 0.5 mg/dL 0-0.5 Jun 04, 2024 10:27 AM [facility] BASIC METABOLIC PANEL (non-fasting) Specimen Type: SERUM No comment entered. Ordering Provider: JUAN LUIS CAI F Report Released Date/Time: May 29, 2024 06:36 PM Reporting Lab: [address] [address] Performing Lab: [address] [address] UREA NITROGEN 19 mg/dL 7-25 GLUCOSE 187 mg/dL H 65-100 SODIUM 140 mmol/L 135-145 POTASSIUM 3.8 mmol/L 3.5-5.0 CHLORIDE 103 mmol/L 100-110 CO2 25 meq/L 20-30 CREATININE, Serum 0.97 mg/dL 0.50-1.40 eGFR(CKD-EPI 2020) 76 mL/min >60 May 08, 2024 11:24 AM [facility] TESTOSTERONE, TOTAL ([facility]) Specimen Type: SERUM No comment entered. Ordering Provider: JUAN LUIS CAI F Report Released Date/Time: Aug 11, 2023 11:52 AM Reporting Lab: [facility] [address] [address] Performing Lab: [address] [address] TESTOSTERONE, TOTAL ([facility]) 44.33 ng/dL L 220.00-892 .00 May 08, 2024 11:24 AM [facility] LIPID PANEL FASTING Specimen Type: SERUM No comment entered. Ordering Provider: JUAN LUIS CAI F Report Released Date/Time: Aug 11, 2023 11:52 AM Reporting Lab: [address] [address] Performing Lab: [address] [address] CHOLESTEROL 142 mg/dL TRIGLYCERIDE 179 mg/dL H 0-150 LDL calculated 64 mg/dL 0-129 CHOL/HDL 3.4 HDL CHOLESTEROL 42 mg/dL 40-60 May 08, 2024 11:24 AM [facility] LIVER FUNCTION Specimen Type: SERUM No comment entered. Ordering Provider: JUAN LUIS CAI F Report Released Date/Time: Aug 11, 2023 11:52 AM Reporting Lab: [address] [address] Performing Lab: [address] [address] PROTEIN,TOTAL 5.5 g/dL L 6.0-8.3 ALBUMIN 3.6 g/dL 3.5-5.0 ALKALINE PHOSPHATASE 71 U/L 40-150 AST 20 U/L 5-34 ALT 24 U/L BILIRUBIN, TOTAL 1.1 mg/dL 0.2-1.2 May 08, 2024 11:24 AM [facility] CBC Specimen Type: BLOOD No comment entered. Ordering Provider: JUAN LUIS CAI F Report Released Date/Time: Aug 11, 2023 11:52 AM Reporting Lab: [address] [address] Performing Lab: [address] [address] WBC 4.08 10*3/uL L 4.50-11.00 RBC 4.53 10*6/uL 4.23-5.66 HGB 13.1 g/dL 12.8-17 HCT 39.9 39.2-50.4 MCV 88.1 fL 82-99 MCHC 32.8 g/dL 30.8-35.1 PLT 130 10*3/uL L 140-360 RDW-CV 14.5 12.0-16.0 MCH 28.9 pg 26.2-32.6 May 08, 2024 11:24 AM [facility] BASIC METABOLIC PANEL (fasting) Specimen Type: SERUM No comment entered. Ordering Provider: JUAN LUIS CAI F Report Released Date/Time: Aug 11, 2023 11:52 AM Reporting Lab: [address] [address] Performing Lab: [address] [address] UREA NITROGEN 19 mg/dL 7-25 GLUCOSE 216 mg/dL H 65-100 SODIUM 142 mmol/L 135-145 POTASSIUM 3.5 mmol/L 3.5-5.0 CHLORIDE 107 mmol/L 100-110 CO2 25 meq/L 20-30 CREATININE, Serum 0.84 mg/dL 0.50-1.40 eGFR(CKD-EPI 2020) 85 mL/min >60 May 08, 2024 11:24 AM [facility] CBC AND DIFF (AUTO) Specimen Type: BLOOD No comment entered. Ordering Provider: JUAN LUIS CAI F Report Released Date/Time: Aug 11, 2023 11:52 AM Reporting Lab: [facility] [address] [address] Performing Lab: [facility] [address] [address] WBC 4.08 10*3/uL L 4.50-11.00 RBC 4.53 [...] 10*3/uL 0.00-0.00 May 08, 2024 11:23 AM [facility] OSMOLALITY (SERUM) Specimen Type: SERUM No comment entered. Ordering Provider: ALLIE CUELLO Report Released Date/Time: Nov 27, 2023 07:39 PM Reporting Lab: [facility] [address] [address] Performing Lab: [facility] [address] [address] OSMOLALITY (SERUM) 299 280-300 May 08, 2024 11:23 AM [facility] CALCIUM Specimen Type: SERUM Comment: *GLUCOSE Not Performed: May 08, 2024@11:36 by [id number] *CLOTH WINDING SUPERVISOR Reason: Duplicate *UREA NITROGEN Not Performed: May 08, 2024@11:36 by [id number] *CLOTH WINDING SUPERVISOR Reason: Duplicate *CREATININE (eGFR 2020) Not Performed: May 08, 2024@11:36 [place] [id number] *CLOTH WINDING SUPERVISOR Reason: Duplicate *SODIUM Not Performed: May 08, 2024@11:36 by [id number] *CLOTH WINDING SUPERVISOR Reason: Duplicate *CHLORIDE Not Performed: May 08, 2024@11:36 by [id number] *CLOTH WINDING SUPERVISOR Reason: Duplicate *CO2 Not Performed: May 08, 2024@11:36 by [id number] *CLOTH WINDING SUPERVISOR Reason: Duplicate *POTASSIUM Not Performed: May 08, 2024@11:36 by [id number] *CLOTH WINDING SUPERVISOR Reason: Duplicate Ordering Provider: ALLIE CUELLO Report Released Date/Time: Nov 27, 2023 07:39 PM Reporting Lab: [facility] [address] [address] Performing Lab: [facility] [address] [address] CALCIUM 8.5 mg/dL 8.5-10.2 May 08, 2024 11:23 AM [facility] Recognition [place] [facility] VITAMIN D (25-OH) Specimen Type: SERUM No comment entered. Ordering Provider: ALLIE CUELLO Report Released Date/Time: Nov 27, 2023 07:39 PM Reporting Lab: [facility] Recognition [place] [facility] [address] [address] Performing Lab: [facility] [address] [address] VITAMIN D (25-OH) 46 ng/mL 20-50 Vital Signs: All taken on the encounter date This section contains inpatient and outpatient Vital Signs collected on the date of the Encounter. Date/Time Temperature Pulse Blood Pressure Respiratory Rate SP02 Pain Height Weight Body Mass Index Source May 29, 2024 11:19 AM 98.1 68 108/55 16 94 5 64.5 173 29 [place] [facility] [place] [facility] Social History: Smoking Status (Most current) [...] took place. Date/Time Current Smoking Status Comment [facility] Jun 05, 2023 11:00 AM [place]-TOBACCO FOR[facility] [place] [facility] Tobacco Use History This section includes a history of the smoking, or tobacco-related health factors, that were collected on or before the date of the Encounter. The data comes from the [place] facility where the Encounter took place. Date/Time Smoking Status/Tobac co Use Comment Facility Jun 05, 2023 11:00 AM VA-TOBACCO QUIT 15 YRS OR MORE [place] [facility] [place] [facility] Jun 06, 2022 01:00 PM VA-TOBACCO FORMER USER [place] [facility] [place] [facility] Jun 06, 2022 01:00 PM VA-TOBACCO QUIT 15 YRS OR MORE [facility] [place] [facility] Jun 30, 2021 02:37 PM VA-TOBACCO FORMER USER [place] [facility] [place] [facility] Jun 30, 2021 02:37 PM VA-TOBACCO QUIT 5 TO < 15 YRS [facility] [place] [facility] May 22, 2020 03:30 PM VA-TOBACCO NEVER USED [place] [facility] [place] [facility] May 08, 2018 02:03 PM VA-TOBACCO FORMER USER [place] [facility] [place] [facility] May 08, 2018 02:03 PM VA-TOBACCO QUIT 15 YRS OR MORE [facility] [place] [facility] November 10, 2017 02:33 PM QUIT TOBACCO USE > 7 YEARS AGO [facility] [place] [facility] October 21, 2016 01:55 PM QUIT TOBACCO USE > 7 YEARS AGO [facility] [place] [facility] Sep 18, 2015 11:24 AM QUIT TOBACCO USE > 7 YEARS AGO stopped 50 years ago [facility] [place] [facility] May 19, 2005 08:01 AM HISTORY OF SMOKING [facility] [place] [facility] May 31, 2004 01:02 PM HISTORY OF SMOKING [facility] Jun 04, 2003 07:57 AM HISTORY OF SMOKING [facility] Jun 03, 2002 01:11 PM HISTORY OF SMOKING [facility] Jun 03, 2002 01:11 PM QUIT TOBACCO USE > 7 YEARS AGO [facility] Advance Directives: All historical and [...] Jun 02, 2023 ADVANCE DIRECTIVE JENNIFER QUIROS [facility] Encounter Notes: All associated encounter notes This section contains the clinical notes associated to the Encounter. Date/Time Encounter Note(s) Provider Source May 29, 2024 11:20 AM NURSING OUTPATIENT NOTE: LOCAL TITLE: NURSING/SPECIALTY CLINIC NOTE STANDARD TITLE: NURSING OUTPATIENT NOTE DATE OF NOTE: MAY 29, 2024@11:20 ENTRY DATE: MAY 29, 2024@11:20:16 AUTHOR: GABY ARIAS EXP COSIGNER: URGENCY: STATUS: COMPLETED Pt. here to clinic to receive his Denosumab injection per Dr. Cuello. Labs reviewed by Dr. Cuello prior to injection. Diagnosis: OSTEOPOROSIS Denosumab 60mg/ml given subcutaneous Left upper outer arm for Osteoporosis. LOT:[id number] EXP: 10/16/2026 AMGEN Labs: VITAMIN D 25-OH Collection DT Specimen Test Name Result Units Ref Range 05/08/2024 11:23 SERUM VITAMIN D (25-OH) 46 ng/mL 20 - 50 05/08/2024 11:23 SERUM Calcium 8.5 mg/ml 8.5-10.2 Pt. tolerated procedure well. Instructions given to patient on possible side effects and to call doctor if any occur or seek medical attention if serious side efects. Next injection in 6 months November 2024 Will remind patient one month before next injection to have labs completed. /thomas/ GABY ARIAS RN Signed: 05/29/2024 11:24 GABY ARIAS [facility]
--- OUTSIDE RECORDS SUMMARY | 2024-06-14 13:22 | XMS_ITS | Encounter Summary ---
Author Name [facility] [place] Address [address] [place] [id number] Care Team Providers Care Neuropsychiatric Aide Name Role Phone TOÑO PETER Primary Care [...] Relationship to Policy Wen [place] MED[place] SUPPLEMEN MASTER PSUED O MEDEX BRON E Mar 19, 2004 [id number] HOLLIE SHEPHERD PATIENT [place] SUPPLEMEN MASTER MEDEX BRONZ E Mar 19, 2004 [id number] HOLLIE [place] SUPP[place] MASTER MEDEX BRONZ E Mar 19, 2004 [id number] [phone] HOLLIE SHEPHERD PATIENT BCBS [facility] MEDICARE SUPPLEMEN MASTER PSUED O MEDEX BRONZ E Mar 19, 2004 [id number] [phone] HOLLIE SHEPHERD PATIENT MEDICARE (WNR) MEDICARE (M) PART B Mar 19, 2004 PART B [id number] HOLLIE SHEPHERD PATIENT MEDICARE (WNR) MEDICARE (M) PART B Mar 19, 2004 PART B [id number] [phone] HOLLIE SHEPHERD PATIENT MEDICARE (WNR) MEDICARE (M) PART B Mar 19, 2004 PART B [id number] HOLLIE SHEPHERD ALD PATIENT MEDICARE (WNR) MEDICARE (M) PART A Feb 17, 2003 PART A [id number] [phone] HOLLIE SHEPHERD ALD PATIENT MEDICARE (WNR) MEDICARE (M) PART A Feb 17, 2003 PART A [id number] [phone] HOLLIE SHEPHERD ALD PATIENT MEDICARE (WNR) MEDICARE (M) PART A Feb 17, 2003 PART A [id number] HOLLIE SHEPHERD PATIENT MEDICARE (WNR) MEDICARE (M) PART A Feb 17, 2003 PART A [id number] HOLLIE SHEPHERD PATIENT MEDICARE (WNR) MEDICARE (M) PART B Feb 17, 2003 PART B [id number] [phone] HOLLIE SHEPHERD PATIENT MEDICARE (WNR) MEDICARE (M) PART A Feb 17, 2003 PART A [id number] HOLLIE SHEPHERD PATIENT MEDICARE (WNR) MEDICARE (M) PART B Feb 17, 2003 PART B [id number] [phone] HOLLIE SHEPHERD PATIENT Selected Encounter This section includes the information on record at [place] for the Encounter. Date/Time Encounter Type Encounter Description Reason Pro vider Source May 29, 2024 01:51 PM Outpatient Encounter ADMIN PAT ACTIVTIES (MASNONCT) IHE Encounter Template Text not used by [place] Plan of Treatment: Future Appointments (+ 6 months) and Future Tests (+/- 45 days) The Plan of Treatment section includes future care activities for the patient from all [place] treatmentfacilities. This section includes future appointments and [...] 12:00 PM AMBULATORY - [place]ATRY [place] [facility] Jun 05, 2024 12:00 PM AMBULATORY - PS[place]CHIATRY [facility] [place] [facility] Jun 17, 2024 10:30 AM AMBULATORY - MEDICINE [facility] [place] [facility] Aug 06, 2024 10:00 AM AMBULATORY - MEDICINE [facility] [place] [facility] Oct 02, 2024 12:00 PM AMBULATORY [place]RY [place] [facility] Oct 02, 2024 12:00 PM AMBULATORY - PSYCHIATRY [facility] [place] [facility] Oct 03, 2024 02:00 PM AMBULATORY - MEDICINE [facility] [place] [facility] Nov 27, 2024 11:00 AM [facility] Active, Pending, and Scheduled Orders This section includes a listing of several types of active, pending, and scheduled orders, including clinic medications orders, diagnostic test orders, procedure orders and consult orders; where the start date of the order is 45 days before the date of the Encounter or 45 days after the date of theEncounter. The data comes from all [place] treatment facilities. Test Date/Time Test Type Test Details Facility Name May 29, 2024 06:36 PM Consult Order PHARMACY/N HM OUTPT Cons Quality Engineering Manager's Choice [facility] Jun 10, 2024 11:25 AM Consult Order COMMUNITY CARE-UROLOGY Cons Quality Engineering Manager's Choice [facility] Lab Results: +/- 30 days [...] Range Comment Jun 04, 2024 10:27 AM [facility] HEMOGLOBIN A1C PANEL Specimen Type: BLOOD [...] May 29, 2024 06:36 PM Reporting Lab: [facility] [place] [facility] [address] [facility] [address] Performing Lab: [facility] [address] [address] HEMOGLOBIN A1C 6.5 H 4.0-5.6 Jun 04, 2024 10:27 AM [facility] TSH Specimen Type: SERUM No comment entered. Ordering Provider: JUAN LUIS PETER F Report Released Date/Time: May 29, 2024 06:36 PM Reporting Lab: [facility] [address] [address] Performing Lab: [facility]TR[facility] [address] [address] TSH 1.78 u[IU]/mL 0.35-5.00 Jun 04, 2024 10:27 AM [facility] MICROALBUMIN CREATININE RATIO PANEL Specimen Type: URINE No comment entered. Ordering Provider: JUAN LUIS PETER F Report Released Date/Time: May 29, 2024 06:36 PM Reporting Lab: [facility] [address] [address] Performing Lab: [facility] [address] [address] MICROALBUMIN/C REATININE RATIO 36.0 mg/g H 0-29.9 MICROALBUMIN,Q UANTITATIVE 2.8 mg/dL RR UNAVAIL CREATININE URINE 77.84 mg/dL Jun 04, 2024 10:27 AM [facility]TRN [facility] LIPID PANEL, NON FASTING Specimen Type: SERUM No comment entered. Ordering Provider: JUAN LUIS PETER F Report Released Date/Time: May 29, 2024 06:36 PM Reporting Lab: [facility] TR[facility] [address] [address] Performing Lab: [facility] [address] [address] CHOLESTEROL 151 mg/dL TRIGLYCERIDE 146 mg/dL 0-150 LDL calculated 73 mg/dL 0-129 CHOL/HDL 3.1 HDL CHOLESTEROL 49 mg/dL 40-60 Jun 04, 2024 10:27 AM [facility] LIVER FUNCTION Specimen Type: SERUM No comment entered. Ordering Provider: JUAN LUIS PETER F Report Released Date/Time: May 29, 2024 06:36 PM Reporting Lab: [facility] [address] [facility] [address] Performing Lab: [address] [address] PROTEIN,TOTAL 5.5 g/dL L 6.0-8.3 ALBUMIN 3.7 g/dL 3.5-5.0 ALKALINE PHOSPHATASE 78 U/L 40-150 AST 20 U/L 5-34 ALT 19 U/L BILIRUBIN, TOTAL 1.3 mg/dL H 0.2-1.2 BILIRUBIN, DIRECT 0.5 mg/dL 0-0.5 Jun 04, 2024 10:27 AM [facility] BASIC METABOLIC PANEL (non-fasting) Specimen Type: SERUM No comment entered. Ordering Provider: JUAN LUIS PETER Report Released Date/Time: May 29, 2024 06:36 PM Reporting Lab: [address] [address] Performing Lab: [address] [address] UREA NITROGEN 19 mg/dL 7-25 GLUCOSE 187 mg/dL H 65-100 SODIUM 140 mmol/L 135-145 POTASSIUM 3.8 mmol/L 3.5-5.0 CHLORIDE 103 mmol/L 100-110 CO2 25 meq/L 20-30 CREATININE, Serum 0.97 mg/dL 0.50-1.40 eGFR(CKD-EPI 2020) 76 mL/min >60 May 08, 2024 11:24 AM [facility] TESTOSTERONE, TOTAL (WHV) Specimen Type: SERUM No comment entered. Ordering Provider: JUAN LUIS PETER F Report Released Date/Time: Aug 11, 2023 11:52 AM Reporting Lab: [address] [address] Performing Lab: [facility]USE[address] [address] TESTOSTERONE, TOTAL (WHV) 44.33 ng/dL L 220.00-892 .00 May 08, 2024 11:24 AM [facility] LIPID PANEL FASTING Specimen Type: SERUM No comment entered. Ordering Provider: JUAN LUIS PETERM F Report Released Date/Time: Aug 11, 2023 11:52 AM Reporting Lab: [address] [address] Performing Lab: [address] [address] CHOLESTEROL 142 mg/dL TRIGLYCERIDE 179 mg/dL H 0-150 LDL calculated 64 mg/dL 0-129 CHOL/HDL 3.4 HDL CHOLESTEROL 42 mg/dL 40-60 May 08, 2024 11:24 AM [facility] LIVER FUNCTION Specimen Type: SERUM No comment entered. Ordering Provider: JUAN LUIS PETER F Report Released Date/Time: Aug 11, 2023 11:52 AM Reporting Lab: [facility] [address] [address] Performing Lab: [address] [address] PROTEIN,TOTAL 5.5 g/dL L 6.0-8.3 ALBUMIN 3.6 g/dL 3.5-5.0 ALKALINE PHOSPHATASE 71 U/L 40-150 AST 20 U/L 5-34 ALT 24 U/L BILIRUBIN, TOTAL 1.1 mg/dL 0.2-1.2 May 08, 2024 11:24 AM [facility] BASIC METABOLIC PANEL (fasting) Specimen Type: SERUM No comment entered. Ordering Provider: JUAN LUIS PETER F Report Released Date/Time: Aug 11, 2023 11:52 AM Reporting Lab: [facility] [address] [facility] [address] Performing Lab: [facility]ITALUSE[address] [address] UREA NITROGEN 19 mg/dL 7-25 GLUCOSE 216 mg/dL H 65-100 SODIUM 142 mmol/L 135-145 POTASSIUM 3.5 mmol/L 3.5-5.0 CHLORIDE 107 mmol/L 100-110 CO2 25 meq/L 20-30 CREATININE, Serum 0.84 mg/dL 0.50-1.40 eGFR(CKD-EPI 2020) 85 mL/min >60 May 08, 2024 11:24 AM [facility] CBC Specimen Type: BLOOD No comment entered. Ordering Provider: JUAN LUIS PETER F Report Released Date/Time: Aug 11, 2023 11:52 AM Reporting Lab: [address] [address] Performing Lab: [address] [address] WBC 4.08 10*3/uL L 4.50-11.00 RBC 4.53 10*6/uL 4.23-5.66 HGB 13.1 g/dL 12.8-17 HCT 39.9 39.2-50.4 MCV 88.1 fL 82-99 MCHC 32.8 g/dL 30.8-35.1 PLT 130 10*3/uL L 140-360 RDW-CV 14.5 12.0-16.0 MCH 28.9 pg 26.2-32.6 May 08, 2024 11:24 AM [facility] CBC AND DIFF (AUTO) Specimen Type: BLOOD No comment entered. Ordering Provider: JUAN LUIS PETER F Report Released Date/Time: Aug 11, 2023 11:52 AM Reporting Lab: [address] [address] Performing Lab: [address] [address] WBC 4.08 10*3/uL L 4.50-11.00 RBC 4.53 [...] 10*3/uL 0.00-0.00 May 08, 2024 11:23 AM [facility] OSMOLALITY (SERUM) Specimen Type: SERUM No comment entered. Ordering Provider: ALLIE CUELLO Report Released Date/Time: Nov 27, 2023 07:39 PM Reporting Lab: [facility] [address] [facility] [address] Performing Lab: [facility] [address] [facility] [address] OSMOLALITY (SERUM) 299 280-300 May 08, 2024 11:23 AM [facility] CALCIUM Specimen Type: SERUM Comment: *GLUCOSE Not Performed: May 08, 2024@11:36 by [id number] *PERSONAL LOAN SPECIALIST Reason: Duplicate *UREA NITROGEN Not Performed: May 08, 2024@11:36 by [id number] *PERSONAL LOAN SPECIALIST Reason: Duplicate *CREATININE (eGFR 2020) Not Performed: May 08, 2024@11:36 by [id number] *PERSONAL LOAN SPECIALIST Reason: Duplicate *SODIUM Not Performed: May 08, 2024@11:36 by [id number] *PERSONAL LOAN SPECIALIST Reason: Duplicate *CHLORIDE Not Performed: May 08, 2024@11:36 by [id number] *PERSONAL LOAN SPECIALIST Reason: Duplicate *CO2 Not Performed: May 08, 2024@11:36 by [id number] *PERSONAL LOAN SPECIALIST Reason: Duplicate *POTASSIUM Not Performed: May 08, 2024@11:36 by [id number] *PERSONAL LOAN SPECIALIST Reason: Duplicate Ordering Provider: ALLIE CUELLO Report Released Date/Time: Nov 27, 2023 07:39 PM Reporting Lab: [place] [employer] [facility] [address] [facility] [address] Performing Lab: [facility] ivi[employer]N [employer] [address] [address] CALCIUM 8.5 mg/dL 8.5-10.2 May 08, 2024 11:23 AM [facility] ivi.[email or web address] [facility] VITAMIN D (25-OH) Specimen Type: SERUM No comment entered. Ordering Provider: ALLIE CUELLO Report Released Date/Time: Nov 27, 2023 07:39 PM Reporting Lab: [place] [employer] [employer] [facility] [address] [facility] [address] Performing Lab: [facility] ivi[employer]N [employer] [address] [address] VITAMIN D (25-OH) 46 ng/mL 20-50 Vital Signs: All taken on the encounter date This section contains inpatient and outpatient Vital Signs collected on the date of the Encounter. Date/Time Temperature Pulse Blood Pressure Respiratory Rate SP02 Pain Height Weight Body Mass Index Source May 29, 2024 11:19 AM 98.1 68 108/55 16 94 5 64.5 173 29 [facility] [employer] [facility] Social History: Smoking Status (Most current) and Tobacco Use (All prior to encounter date) This section includes the most current, and the historical, smoking and tobacco- related health factors from the [place] facility where the Encounter took place. Current Smoking Status This section includes the most current smoking, or tobacco-related health factor, from the [place] facility where the Encounter took place. Date/Time Current Smoking Status Comment [facility] Jun 05, 2023 11:00 AM VA-TOBACCO FORMER USER [place] [facility] [place] [facility] Tobacco Use History This section includes a history of the smoking, or tobacco-related health factors, that were collected on or before the date of the Encounter. The data comes from the [place] facility where the Encounter took place. Date/Time Smoking Status/Tobac co Use Comment [facility] Jun 05, 2023 11:00 AM VA-TOBACCO QUIT 15 YRS OR MORE [facility] [place] [facility] Jun 06, 2022 01:00 PM VA-TOBACCO FORMER USER [facility] [place] [facility] Jun 06, 2022 01:00 PM VA-TOBACCO QUIT 15 YRS OR MORE [facility] [place] [facility] Jun 30, 2021 02:37 PM VA-TOBACCO FORMER USER [facility] [place] [facility] Jun 30, 2021 02:37 PM VA-TOBACCO QUIT 5 TO < 15 YRS [facility] [place] [facility] May 22, 2020 03:30 PM VA-TOBACCO NEVER USED [facility] [place] [facility] May 08, 2018 02:03 PM VA-TOBACCO FORMER USER [place] [place] [facility] May 08, 2018 02:03 PM VA-TOBACCO QUIT 15 YRS OR MORE [facility] [place] [facility] November 10, 2017 02:33 PM QUIT TOBACCO USE > 7 YEARS AGO [facility] [place] [facility] October 21, 2016 01:55 PM QUIT TOBACCO USE > 7 YEARS AGO [facility] [place] [facility] Sep 18, 2015 11:24 AM QUIT TOBACCO USE > 7 YEARS AGO stopped 50 years ago [facility] [place] [facility] May 19, 2005 08:01 AM HISTORY OF SMOKING [facility] [place] [facility] May 31, 2004 01:02 PM HISTORY OF SMOKING [facility] [place] [facility] Jun 04, 2003 07:57 AM HISTORY OF SMOKING [facility] [place] [facility] Jun 03, 2002 01:11 PM HISTORY OF SMOKING [facility] [place] [facility] Jun 03, 2002 01:11 PM QUIT TOBACCO USE > 7 YEARS AGO [facility] Advance Directives: All historical and current [...] Jun 02, 2023 ADVANCE DIRECTIVE JENNIFER QUIROS [place] [facility] Encounter Notes: All associated encounter notes This section contains the clinical notes associated to the Encounter. Date/Time Encounter Note(s) Provider Source May 29, 2024 06:30 PM ADDENDUM: LOCAL TITLE: Addendum STANDARD TITLE: ADDENDUM DATE OF NOTE: MAY 29, 2024@18:30:10 ENTRY DATE: MAY 29, 2024@18:30:11 AUTHOR: TOÑO PETER COSIGNER: URGENCY: STATUS: COMPLETED I called and discussed the risks of shared care with him. He agrees to ALL endocrine care here at [place] as [place] want to get the [place] . He will have DR Murry's office send one year of labs and most recent note. I messaged with DR Cuello who asks me to enter a DM consult. Please ask him in for labs this or next week and he should expect a booking call on this consult. /thomas/ Toño Peter PA-C STAFF PHYSICIAN TIRE CENTER SUPERVISOR Signed: 05/29/2024 18:35 Receipt Acknowledged By: 05/30/2024 11:19 /thomas/ VIJAYA KENDALL, BRYCE REGISTERED NURSE 06/04/2024 08:19 /thomas/ ENE MELENDEZ, PHARMD,BCPS CLINICAL PHARMACY PRACTITIONER ====== --- Original Document --- 05/29/24 MEDICATION RENEWAL: Lillian zapata have a requesting medication renewal for mailing please please renew if appropriate Active Outpatient Medications (including Supplies): Active Outpatient Medications Status ====== 1) [id number] INSULIN,ASPART,HUMAN 100 UNIT/ML INJ 8 E> 10-30 08-15 0 90 /thomas/ DEVIN WOODARD ORIENTOR Signed: 05/29/2024 13:51 Receipt Acknowledged By: 05/29/2024 15:02 /thomas/ ALLIE CUELLO MD STAFF PHYSICIAN 05/29/2024 ADDENDUM STATUS: COMPLETED Pt followed by non [place] endocrinology for DM. Referring back to PCP. I recommend that pt request this medication from non [facility] endocrine, so that provider managing the insulin is the provider ordering it. /benny CUELLO MD STAFF PHYSICIAN Signed: 05/29/2024 15:04 Receipt Acknowledged By: 05/29/2024 19:04 /thomas/ Toño Peter PA-C STAFF PHYSICIAN TIRE CENTER SUPERVISOR 05/30/2024 ADDENDUM STATUS: COMPLETED Unable to reach [place] at listed number [id number]. Left VM on self-identified mailbox with call back number. /thomas/ VIJAYA KENDALL RN REGISTERED NURSE Signed: 05/30/2024 11:19 06/04/2024 ADDENDUM STATUS: UNSIGNED You may not VIEW this UNSIGNED Addendum. TOÑO PETER [place] [facility] [place] [facility] May 29, 2024 03:02 PM ADDENDUM: LOCAL TITLE: Addendum STANDARD TITLE: ADDENDUM DATE OF NOTE: MAY 29, 2024@15:02:25 ENTRY DATE: MAY 29, 2024@15:02:26 AUTHOR: ALLIE CUELLO: URGENCY: STATUS: COMPLETED Pt followed by non [place] endocr[place]ology for DM. Referring back to PCP. I recommend that pt request this medication from non [facility] endocrine, so that provider managing the insulin is the provider ordering it. /benny CUELLO MD STAFF PHYSICIAN Signed: 05/29/2024 15:04 Receipt Acknowledged By: 05/29/2024 19:04 /thomas/ Toño Peter PA-C STAFF PHYSICIAN TIRE CENTER SUPERVISOR ====== --- Original Document --- 05/29/24 MEDICATION RENEWAL: Lillian zapata have a requesting medication renewal for mailing please please renew if appropriate Active Outpatient Medications (including Supplies): Active Outpatient Medications Status ====== 1) [id number] INSULIN,ASPART,HUMAN 100 UNIT/ML INJ 8 E> 10 08-15 0 90 /thomas/ DEVIN WOODARD ORIENTOR Signed: 05/29/2024 13:51 Receipt Acknowledged By: 05/29/2024 15:02 /thomas/ ALLIE CUELLO MD STAFF PHYSICIAN 05/29/2024 ADDENDUM STATUS: COMPLETED I called and discussed the risks of shared care with him. He agrees to ALL endocrine care here [place] as [place] . He will have DR Murry's office send one year of labs and most recent note. I messaged with DR Cuello who asks me to enter a DM consult. Please ask him in for labs this or next week and he should expect a booking call on this consult. /thomas/ Toño Peter PA-C STAFF PHYSICIAN TIRE CENTER SUPERVISOR Signed: 05/29/2024 18:35 Receipt Acknowledged By: * AWAITING SIGNATURE * VIJAYA KENDALL ALICE [facility] [place] [facility] May 29, 2024 01:51 PM MEDICATION MGT NOTE: LOCAL TITLE: MEDICATION RENEWAL STANDARD TITLE: MEDICATION MGT NOTE DATE OF NOTE: MAY 29, 2024@13:51 ENTRY DATE: MAY 29, 2024@13:51:07 AUTHOR: DEVIN WOODARD EXP COSIGNER: URGENCY: STATUS: COMPLETED MEDICATION RENEWAL Has ADDENDA Lillian we have a requesting medication renewal for mailing please please renew if appropriate Active Outpatient Medications (including Supplies): Active Outpatient Medications Status ====== 1) [id number] INSULIN,ASPART,HUMAN 100 UNIT/ML INJ 8 E> 10 0815 0 90 /benny WOODARD ORIENTOR Signed: 05/29/2024 13:51 Receipt Acknowledged By: 05/29/2024 15:02 /thomas/ ALLIE CUELLO MD STAFF PHYSICIAN 05/29/2024 ADDENDUM STATUS: COMPLETED Pt followed by non [place] endocr[facility]ology for DM. Referring back to PCP. I recommend that pt request this medication from non [place] endocrine, so that provider managing the insulin is the provider ordering it. /benny CUELLO MD STAFF PHYSICIAN Signed: 05/29/2024 15:04 Receipt Acknowledged By: 05/29/2024 19:04 /thomas/ Toño Peter PA-C STAFF PHYSICIAN TIRE CENTER SUPERVISOR 05/29/2024 ADDENDUM STATUS: COMPLETED I called and discussed the risks of shared care with him. He agrees to ALL endocrine care [place] as [place] . He will have DR Murry's office send one year of labs and most recent note. I messaged with DR Cuello who asks me to enter a DM consult. Please ask him in for labs this or next week and he should expect a booking call on this consult. /thomas/ Toño Peter PA-C STAFF PHYSICIAN TIRE CENTER SUPERVISOR Signed: 05/29/2024 18:35 Receipt Acknowledged By: 05/30/2024 11:19 /thomas/ VIJAYA KENDALL, RN REGISTERED NURSE 06/04/2024 08:19 /thomas/ ENE MELENDEZ, PHARMD,BCPS CLINICAL PHARMACY PRACTITIONER 05/30/2024 ADDENDUM STATUS: COMPLETED Unable to reach at listed number [id number]. Left VM on self-identified mailbox with call back number. /thomas/ VIJAYA KEDNALL, RN REGISTERED NURSE Signed: 05/30/2024 11:19 06/04/2024 ADDENDUM STATUS: COMPLETED Agree with endo consult as pt is currently on a insulin pump. /thomas/ ENE MELENDEZ, TYRONED,BCPS CLINICAL PHARMACY PRACTITIONER Signed: 06/04/2024 08:20 DEVIN WOODARD [facility]
--- OUTSIDE RECORDS SUMMARY | 2024-06-14 13:22 | XMS_ITS | Encounter Summary ---
Author Name [facility] [place] [facility] [place] Organization [facility] [place] Address [address] [place] [id number] Care Team Providers Care Director Of District Office Name Role Phone TOÑO PETER Primary Care [...] O MEDEX BRONZ E Mar 19, 2004 [id number] [phone] HOLLIE SHEPHERD PATIENT [place] SUPPLEMEN MASTER MEDEX BRONZ E Mar 19, 2004 [id number] HOLLIE SHEPHERD PATIENT [place] SUPPLEMEN MASTER MEDEX BRONZ E Mar 19, 2004 [id number] [phone] HOLLIE SHEPHERD PATIENT BCBS [facility] MEDICARE SUPPLEMEN MASTER PSUED O MEDEX BRONZ E Mar 19, 2004 [id number] [phone] HOLLIE SHEPHERD PATIENT MEDICARE (WNR) MEDICARE (M) PART B Mar 19, 2004 PART B [id number] HOLLIE SHEPHERD PATIENT MEDICARE (WNR) MEDICARE (M) PART B Mar 19, 2004 PART B [id number] [phone] HOLLIE SHEPHERD ALD PATIENT MEDICARE (WNR) MEDICARE (M) PART B Mar 19, 2004 PART B [id number] HOLLIE SHEPHERD ALD PATIENT MEDICARE (WNR) MEDICARE (M) PART A Feb 17, 2003 PART A [id number] HOLLIE SHEPHERD ALD PATIENT MEDICARE (WNR) MEDICARE (M) PART A Feb 17, 2003 PART A [id number] HOLLIE SHEPHERD ALD PATIENT MEDICARE (WNR) MEDICARE (M) PART A Feb 17, 2003 PART A [id number] HOLLIE SHEPHERD PATIENT MEDICARE (WNR) MEDICARE (M) PART A Feb 17, 2003 PART A [id number] HOLLIE SHEPHERD PATIENT MEDICARE (WNR) MEDICARE (M) PART B Feb 17, 2003 PART B [id number] HOLLIE SHEPHERD PATIENT MEDICARE (WNR) MEDICARE (M) PART A Feb 17, 2003 PART A [id number] HOLLIE SHEPHERD PATIENT MEDICARE (WNR) MEDICARE (M) PART B Feb 17, 2003 PART B [id number] HOLLIE SHEPHERD PATIENT Selected Encounter This section includes the information on record at [place] for the Encounter. Date/Time Encounter Type Encounter Description Reason Pro vider Source May 29, 2024 10:39 AM Outpatient Encounter PRIMARY CARE/MEDICINE IHE Encounter Template Text not used by [place] Plan of Treatment: Future Appointments (+ 6 months) and Future Tests (+/- 45 days) The Plan of Treatment section includes future care activities for the patient from all [place] treatmentfacilities. This section includes future appointments and future orders which are active, pending or scheduled. Future Appointments This section includes appointments that were scheduled to occur 6 months from the date of the Encounter, up to a maximum of 20 appointments. The data comes from all [place] treatment facilities. Appointment Date/Time Appointment Type Appointme nt Facility Name Jun 05, 2024 12:00 PM AMBULATORY - [place] [facility] Jun 05, 2024 12:00 PM AMBULATORY [place]IAT[place] [facility] [place] [facility] Jun 17, 2024 10:30 AM AMBULATORY - MEDICINE [facility] [place] [facility] Aug 06, 2024 10:00 AM AMBULATORY - MEDICINE [facility] [place] [facility] Oct 02, 2024 12:00 PM AMBULATORY [place] [facility] Oct 02, 2024 12:00 PM AMBULATORY - PS[place]CHIATRY [facility] [place] [facility] Oct 03, 2024 02:00 PM AMBULATORY - MEDICINE [place] [facility] [place] [facility] Nov 27, 2024 11:00 AM [facility] [place] [facility] [place] [facility] Active, Pending, and Scheduled Orders This section includes a listing of several types of active, pending, and scheduled orders, including clinic medications orders, diagnostic test orders, procedure orders and consult orders; where the start date of the order is 45 days before the date of the Encounter or 45 days after the date of theEncounter. The data comes from all [place] treatment facilities. Test Date/Time Test Type Test Details Facility Name May 29, 2024 06:36 PM Consult Order PHARMACY/N HM OUTPT Cons Retail Sales Lead's Choice [facility] Jun 10, 2024 11:25 AM Consult Order COMMUNITY CARE-UROLOGY Cons Retail Sales Lead's Choice [facility] Lab Results: +/- 30 days of the encounter This section includes the Chemistry and Hematology Lab Results on record with [place] for the patient. Radiology Reports and Pathology Reports are provided separately, in subsequent sections. Lab Results This section contains the Chemistry/Hematology Results that were resulted 30 days before or 30 daysafter the date of the Encounter. Date/Time Source Result Type Result - Unit Interpretation Reference Range Comment Jun 04, 2024 10:27 AM [facility] HEMOGLOBIN A1C PANEL Specimen Type: BLOOD [...] May 29, 2024 06:36 PM Reporting Lab: [facility]ITALRGADSD[facility]TRN [facility]ITAL[facility] [address] [facility] [address] Performing Lab: [facility] TRN [facility]ITAL[facility]ETS [address] [address] HEMOGLOBIN A1C 6.5 H 4.0-5.6 Jun 04, 2024 10:27 AM [facility]RL [facility] TSH Specimen Type: SERUM No comment entered. Ordering Provider: JUAN LUIS PETER F Report Released Date/Time: May 29, 2024 06:36 PM Reporting Lab: [facility]ITALRGADSD[facility] CENTERTRN [facility]ITALUSETS [facility] [address] [facility] [address] Performing Lab: [facility]ITALRBAYPOINTE HOSPITALN [facility]ITALUSE[address] [address] TSH 1.78 u[IU]/mL 0.35-5.00 Jun 04, 2024 10:27 AM [facility] MICROALBUMIN CREATININE RATIO PANEL Specimen Type: URINE No comment entered. Ordering Provider: JUAN LUIS PETER F Report Released Date/Time: May 29, 2024 06:36 PM Reporting Lab: [facility]ITALRL TRN [facility]ITALUSETS [facility] [address] [facility] [address] Performing Lab: [facility]ITALRGADSDEN REGIONAL [facility]ICAL CENTERTRN [facility]OSPITALUSETS [address] [address] MICROALBUMIN/C REATININE RATIO 36.0 mg/g H 0-29.9 MICROALBUMIN,Q UANTITATIVE 2.8 mg/dL RR UNAVAIL CREATININE URINE 77.84 mg/dL Jun 04, 2024 10:27 AM [facility]ITALRBAYPOINTE HOSPITALN [facility]ITALUSE[facility] LIPID PANEL, NON FASTING Specimen Type: SERUM No comment entered. Ordering Provider: JUAN LUIS PETER F Report Released Date/Time: May 29, 2024 06:36 PM Reporting Lab: [facility]ITALRL TRN [facility]ITALUSETS [address] [address] Performing Lab: [facility]OSPITALRL TRN [address] [address] CHOLESTEROL 151 mg/dL TRIGLYCERIDE 146 mg/dL 0-150 LDL calculated 73 mg/dL 0-129 CHOL/HDL 3.1 HDL CHOLESTEROL 49 mg/dL 40-60 Jun 04, 2024 10:27 AM [facility] LIVER FUNCTION Specimen Type: SERUM No comment entered. Ordering Provider: JUAN LUIS PETER F Report Released Date/Time: May 29, 2024 06:36 PM Reporting Lab: [address] [address] Performing Lab: [address] [address] PROTEIN,TOTAL 5.5 g/dL L 6.0-8.3 ALBUMIN 3.7 g/dL 3.5-5.0 ALKALINE PHOSPHATASE 78 U/L 40-150 AST 20 U/L 5-34 ALT 19 U/L BILIRUBIN, TOTAL 1.3 mg/dL H 0.2-1.2 BILIRUBIN, DIRECT 0.5 mg/dL 0-0.5 Jun 04, 2024 10:27 AM [facility] BASIC METABOLIC PANEL (non-fasting) Specimen Type: SERUM No comment entered. Ordering Provider: JUAN LUIS PETER F Report Released Date/Time: May 29, 2024 06:36 PM Reporting Lab: [address] [address] Performing Lab: [address] [address] UREA NITROGEN 19 mg/dL 7-25 GLUCOSE 187 mg/dL H 65-100 SODIUM 140 mmol/L 135-145 POTASSIUM 3.8 mmol/L 3.5-5.0 CHLORIDE 103 mmol/L 100-110 CO2 25 meq/L 20-30 CREATININE, Serum 0.97 mg/dL 0.50-1.40 eGFR(CKD-EPI 2020) 76 mL/min >60 May 08, 2024 11:24 AM [facility] TESTOSTERONE, TOTAL (WHV) Specimen Type: SERUM No comment entered. Ordering Provider: VANWAGNER,WILL MAY F Report Released Date/Time: Aug 11, 2023 11:52 AM Reporting Lab: [facility] [address] [facility] [address] Performing Lab: [facility]N [address] [address] TESTOSTERONE, TOTAL (WHV) 44.33 ng/dL L 220.00-892 .00 May 08, 2024 11:24 AM [facility] LIPID PANEL FASTING Specimen Type: SERUM No comment entered. Ordering Provider: JUAN LUIS PETERM F Report Released Date/Time: Aug 11, 2023 11:52 AM Reporting Lab: [address] [address] Performing Lab: [address] [address] CHOLESTEROL 142 mg/dL TRIGLYCERIDE 179 mg/dL H 0-150 LDL calculated 64 mg/dL 0-129 CHOL/HDL 3.4 HDL CHOLESTEROL 42 mg/dL 40-60 May 08, 2024 11:24 AM [facility] LIVER FUNCTION Specimen Type: SERUM No comment entered. Ordering Provider: JUAN LUIS PETER F Report Released Date/Time: Aug 11, 2023 11:52 AM Reporting Lab: [address] [address] Performing Lab: [address] [address] PROTEIN,TOTAL 5.5 g/dL L 6.0-8.3 ALBUMIN 3.6 g/dL 3.5-5.0 ALKALINE PHOSPHATASE 71 U/L 40-150 AST 20 U/L 5-34 ALT 24 U/L BILIRUBIN, TOTAL 1.1 mg/dL 0.2-1.2 May 08, 2024 11:24 AM [facility] CBC Specimen Type: BLOOD No comment entered. Ordering Provider: JUAN LUIS PETER F Report Released Date/Time: Aug 11, 2023 11:52 AM Reporting Lab: [address] [address] Performing Lab: [address] [address] WBC 4.08 10*3/uL L 4.50-11.00 RBC 4.53 10*6/uL 4.23-5.66 HGB 13.1 g/dL 12.8-17 HCT 39.9 39.2-50.4 MCV 88.1 fL 82-99 MCHC 32.8 g/dL 30.8-35.1 PLT 130 10*3/uL L 140-360 RDW-CV 14.5 12.0-16.0 MCH 28.9 pg 26.2-32.6 May 08, 2024 11:24 AM [facility] BASIC METABOLIC PANEL (fasting) Specimen Type: SERUM No comment entered. Ordering Provider: JUAN LUIS PETER F Report Released Date/Time: Aug 11, 2023 11:52 AM Reporting Lab: [address] [address] Performing Lab: [address] [address] UREA NITROGEN 19 mg/dL 7-25 GLUCOSE 216 mg/dL H 65-100 SODIUM 142 mmol/L 135-145 POTASSIUM 3.5 mmol/L 3.5-5.0 CHLORIDE 107 mmol/L 100-110 CO2 25 meq/L 20-30 CREATININE, Serum 0.84 mg/dL 0.50-1.40 eGFR(CKD-EPI 2020) 85 mL/min >60 May 08, 2024 11:24 AM [facility] CBC AND DIFF (AUTO) Specimen Type: BLOOD No comment entered. Ordering Provider: JUAN LUIS PETER F Report Released Date/Time: Aug 11, 2023 11:52 AM Reporting Lab: [address] [address] Performing Lab: [address] [address] WBC 4.08 10*3/uL L 4.50-11.00 RBC 4.53 [...] 10*3/uL 0.00-0.00 May 08, 2024 11:23 AM [facility] OSMOLALITY (SERUM) Specimen Type: SERUM No comment entered. Ordering Provider: ALLIE CUELLO Report Released Date/Time: Nov 27, 2023 07:39 PM Reporting Lab: [facility] [address] [facility] [address] Performing Lab: [facility] [address] [facility] [address] OSMOLALITY (SERUM) 299 280-300 May 08, 2024 11:23 AM [facility] CALCIUM Specimen Type: SERUM Comment: *GLUCOSE Not Performed: May 08, 2024@11:36 by [id number] *SHIRT CREASER Reason: Duplicate *UREA NITROGEN Not Performed: May 08, 2024@11:36 by [id number] *SHIRT CREASER Reason: Duplicate *CREATININE (eGFR 2020) Not Performed: May 08, 2024@11:36 by [id number] *SHIRT CREASER Reason: Duplicate *SODIUM Not Performed: May 08, 2024@11:36 by [id number] *SHIRT CREASER Reason: Duplicate *CHLORIDE Not Performed: May 08, 2024@11:36 by [id number] *SHIRT CREASER Reason: Duplicate *CO2 Not Performed: May 08, 2024@11:36 by [id number] *SHIRT CREASER Reason: Duplicate *POTASSIUM Not Performed: May 08, 2024@11:36 by [id number] *SHIRT CREASER Reason: Duplicate Ordering Provider: ALLIE CUELLO Report Released Date/Time: Nov 27, 2023 07:39 PM Reporting Lab: [place] [employer] [facility]SPE[facility] [employer] [facility] [address] [facility] [address] Performing Lab: [facility] [address] [address] CALCIUM 8.5 mg/dL 8.5-10.2 May 08, 2024 11:23 AM [facility] VITAMIN D (25-OH) Specimen Type: SERUM No comment entered. Ordering Provider: ALLIE CUELLO Report Released Date/Time: Nov 27, 2023 07:39 PM Reporting Lab: [place] [employer] [facility] [address] [facility] [address] Performing Lab: [facility]N [facility]PITALUSESvel[facility] [address] [address] VITAMIN D (25-OH) 46 ng/mL 20-50 Vital Signs: All taken on the encounter date This section contains inpatient and outpatient Vital Signs collected on the date of the Encounter. Date/Time Temperature Pulse Blood Pressure Respiratory Rate SP02 Pain Height Weight Body Mass Index Source May 29, 2024 11:19 AM 98.1 68 108/55 16 94 5 64.5 173 29 [facility] Social History: Smoking Status (Most current) and Tobacco Use (All prior to encounter date) This section includes the most current, and the historical, smoking and tobacco- related health factors from the [place] facility where the Encounter took place. Current Smoking Status This section includes the most current smoking, or tobacco-related health factor, from the [place] facility where the Encounter took place. Date/Time Current Smoking Status Comment Facil ity Jun 05, 2023 11:00 AM VA-TOBACCO FORMER USER [place] [facility] [place] [facility] Tobacco Use History This section includes a history of the smoking, or tobacco-related health factors, that were collected on or before the date of the Encounter. The data comes from the [place] facility where the Encounter took place. Date/Time Smoking Status/Tobac co Use Comment [facility] Jun 05, 2023 11:00 AM VA-TOBACCO [...] VA-TOBACCO QUIT 5 TO < 15 YRS [place] [facility] [place] [facility] May 22, 2020 03:30 PM VA-TOBACCO NEVER USED [place] [facility] [place] [facility] [...] 50 years ago [facility] [place] [facility] May 19, 2005 08:01 AM HISTORY OF SMOKING [facility] [place] [facility] May 31, 2004 01:02 PM HISTORY OF SMOKING [facility] [place] [facility] Jun 04, 2003 07:57 AM HISTORY OF SMOKING [facility] [place] [facility] Jun 03, 2002 01:11 PM HISTORY OF SMOKING [facility] [place] [facility] Jun 03, 2002 01:11 PM QUIT TOBACCO USE > 7 YEARS AGO [facility] [place] [facility] Advance Directives: All historical and current Section Date Range: From patient's date of to the date document was created. This section includes ALL of a patient's completed or amended [place] Advance and Rescinded Directives. The entries below indicate that a directive exists for the patient, but an actual copy is not included with this document. The data comes from all [place] facilities. Date Advance Directives Provider Source Jun 02, 2023 ADVANCE DIRECTIVE JENNIFER QUIROS [facility] RL [facility] Encounter Notes: All associated encounter notes This section contains the clinical notes associated to the Encounter. Date/Time Encounter Note(s) Provider Source May 29, 2024 10:47 AM ADDENDUM: LOCAL TITLE: Addendum STANDARD TITLE: ADDENDUM DATE OF NOTE: MAY 29, 2024@10:47:39 ENTRY DATE: MAY 29, 2024@10:47:40 AUTHOR: CAIT ROBERT COSIGNER: URGENCY: STATUS: COMPLETED Alert to PCP for requested renewal. 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 [ X ] At this encounter the 's Insurance information was verified. [ X ] At this encounter the below scheduled visits for the were discussed and appointment reminder card was offered. Future appointments: 05/29/2024 11:30 NHM/ENDOCRINE 06/05/2024 12:00 CWM V01 DI MAGDALENO MD 06/06/2024 14:30 CWM/NO/OCCUPATIONAL THERA 08/06/2024 10:00 CWM/NO/PACT 3 10/03/2024 14:00 CWM/NO/DERMATOLOGY SHIRT CREASER 04/02/2025 10:30 NHM/OPTOMETRY/ARCENIOASKI /es/ [place] Signed: 05/29/2024 10:40 Receipt Acknowledged By: 05/29/2024 10:48 /es/ Cait Robert MSN RN CNL Primary Care RN for VIJAYA KENDALL 05/29/2024 12:15 /es/ CAIT REA LPN, LPN CNTL [facility] May 29, 2024 10:39 AM PRIMARY CARE NOTE: LOCAL TITLE: WALK-IN NOTE PRIMARY CARE (T) STANDARD TITLE: PRIMARY CARE NOTE DATE OF NOTE: MAY 29, 2024@10:39 ENTRY DATE: MAY 29, 2024@10:39:18 AUTHOR: [place] EXP COSIGNER: URGENCY: STATUS: COMPLETED WALK-IN NOTE PRIMARY CARE (T) Has ADDENDA <====Click to Start Advanced Medical Support presents to the Primary Care clinic with the following request: [ X ]Medication Renewal/Refill INSULIN,ASPART (NOVOLOG) INJ 100UNIT/ML [place] would like to have mailed [ ]Consultation with Team RN [ ]Symptoms [ ]Other The states they are: [ ]Waiting [ X ]Not Waiting No Walk in visit scheduled with PACT Nurse [ X ] At this encounter the 's demographics were verified. [ X ] At this encounter the 's Insurance information was verified. [ X ] At this encounter the below scheduled visits for the [place] were discussed and appointment reminder card was offered. Future appointments: 05/29/2024 11:30 NHM/ENDOCRINE 06/05/2024 12:00 CWM V01 [facility] MH SHARLA KOHLI 04 06/06/2024 14:30 CWM/NO/OCCUPATIONAL THERA 08/06/2024 10:00 CWM/NO/PACT 3 10/03/2024 14:00 CWM/NO/DERMATOLOGY SHIRT CREASER 04/02/2025 10:30 NHM/OPTOMETRY/ARCENIOASKI /es/ [facility] AMSA Signed: 05/29/2024 10:40 Receipt Acknowledged By: 05/29/2024 10:48 /thomas/ Cait Robert MSN RN CNL Primary Care RN for VIJAYA Dennison MIKHAILBAYLEE 05/29/2024 12:15 /es/ ODILON SIMPSON LPN 05/29/2024 ADDENDUM STATUS: COMPLETED Alert to PCP for requested renewal. /thomas/ Cait Robert MSN RN CNL Primary Care RN Signed: 05/29/2024 10:47 Receipt Acknowledged By: * AWAITING SIGNATURE * TOÑO PETER PATRICIA JEAN [facility]
--- OUTSIDE RECORDS SUMMARY | 2024-06-14 13:22 | XMS_ITS | Encounter Summary ---
Author Name [facility] Organization [facility] [place] Address [address] [place] [id number] Care Team Providers Care Section Housekeeper Name Role Phone TOÑO CAI Primary Care [...] Relationship to Policy Wen [place] SUPPLEMEN MASTER PSUED O MEDEX BRONZ E Mar 19, 2004 [id number] [phone] HOLLIE SHEPHERD PATIENT [place] MED[place] SUPPLEMEN MASTER MEDEX BRONZ E Mar 19, 2004 [id number] [phone] HOLLIE SHEPHERD [place] SUPPLEMEN MASTER MEDEX BRONZ E Mar 19, 2004 [id number] [phone] HOLLIE SHEPHERD PATIENT BCBS [facility] MEDICARE SUPPLEMEN MASTER PSUED O MEDEX BRONZ E Mar 19, 2004 [id number] HOLLIE SHEPHERD PATIENT MEDICARE (WNR) MEDICARE (M) PART B Mar 19, 2004 PART B [id number] [phone] CORA,HOLLIE ALD PATIENT MEDICARE (WNR) MEDICARE (M) PART B Mar 19, 2004 PART B [id number] CORAHOLLIE SILVA ALD PATIENT MEDICARE (WNR) MEDICARE (M) PART B Mar 19, 2004 PART B [id number] [phone] CORAHOLLIE SILVA ALD PATIENT MEDICARE (WNR) MEDICARE (M) PART A Feb 17, 2003 PART A [id number] CORAHOLLIE SILVA ALD PATIENT MEDICARE (WNR) MEDICARE (M) PART A Feb 17, 2003 PART A [id number] CORAHOLLIE SILVA ALD PATIENT MEDICARE (WNR) MEDICARE (M) PART A Feb 17, 2003 PART A [id number] [phone] HOLLIE SHEPHERD PATIENT MEDICARE (WNR) MEDICARE (M) PART A Feb 17, 2003 PART A [id number] [phone] HOLLIE SHEPHERD PATIENT MEDICARE (WNR) MEDICARE (M) PART B Feb 17, 2003 PART B [id number] HOLLIE SHEPHERD PATIENT MEDICARE (WNR) MEDICARE (M) PART A Feb 17, 2003 PART A [id number] HOLLIE SHEPHERD PATIENT MEDICARE (WNR) MEDICARE (M) PART B Feb 17, 2003 PART B [id number] HOLLIE SHEPHERD PATIENT Selected Encounter This section includes the information on record at OR for the Encounter. Date/Time Encounter Type Encounter Description Reason Provider Source May 02, 2024 10:00 AM THERAPEUTIC EXERCISES PHYSICAL THERAPY ICD-10-CM M54.9 Dorsalgia, unspecified NAVJOT SOTO Mikey Encounter Template Text not used by OR Assessments - Encounter Diagnoses This section includes the primary and secondary diagnoses documented for the Encounter. Date/Time Primary/Secondary Diagnosis Diagnosis Name Provider Source May 17, 2024 01:13 PM PRIMARY Dorsalgia, unspecified NAVJOT SOTO OR [facility] [...] Appointment Type Appointme nt Facility Name May 08, 2024 10:00 AM AMBULATORY - [facility] [place] [facility] May 29, 2024 11:30 AM AMBULATORY - MEDICINE [facility] [place] [facility] Jun 05, 2024 12:00 PM AMBULATORY [place] [facility] Jun 05, 2024 12:00 PM AMBULATORY - PSYCHIATRY [facility] [place] [facility] Jun 17, 2024 10:30 AM AMBULATORY - MEDICINE [facility] [place] [facility] Aug 06, 2024 10:00 AM AMBULATORY - MEDICINE [facility] [place] [facility] Oct 02, 2024 12:00 PM AMBULATORY - [place] [facility] Oct 02, 2024 12:00 PM AMBULATORY - PSYCHIATRY [facility] [place] [facility] Oct 03, 2024 02:00 PM AMBULATORY - MEDICINE [place] [facility] [place] [facility] Active, Pending, and Scheduled Orders This section includes a listing of several types of active, pending, and scheduled orders, including clinic medications orders, diagnostic test orders, procedure orders and consult orders; where the start date of the order is 45 days before the date of the Encounter or 45 days after the date of theEncounter. The data comes from all [facility]. Test Date/Time Test Type Test Details Facility Name May 29, 2024 06:36 PM Consult Order PHARMACY/N HM OUTPT Cons Production Support Supervisor's Choice [facility] [place] [facility] Jun 10, 2024 11:25 AM Consult Order COMMUNITY CARE-UROLOGY Cons Production Support Supervisor's Choice [facility] [place] [facility] Lab Results: +/- 30 days of [...] Range Comment May 08, 2024 11:24 AM [facility] TESTOSTERONE, TOTAL ([facility]) Specimen Type: SERUM No comment entered. Ordering Provider: JACINTO CAI Report Released Date/Time: Aug 11, 2023 11:52 AM Reporting Lab: [address] [address] Performing Lab: [address] [address] TESTOSTERONE, TOTAL ([facility]) 44.33 ng/dL L 220.00-892. 00 May 08, 2024 11:24 AM [facility] LIVER FUNCTION Specimen Type: SERUM No comment entered. Ordering Provider: JACINTO CAI Report Released Date/Time: Aug 11, 2023 11:52 AM Reporting Lab: [address] [address] Performing Lab: [address] [address] PROTEIN,TOTAL 5.5 g/dL L 6.0-8.3 ALBUMIN 3.6 g/dL 3.5-5.0 ALKALINE PHOSPHATASE 71 U/L 40-150 AST 20 U/L 5-34 ALT 24 U/L BILIRUBIN, TOTAL 1.1 mg/dL 0.2-1.2 May 08, 2024 11:24 AM [facility] LIPID PANEL FASTING Specimen Type: SERUM No comment entered. Ordering Provider: JACINTO CAI Report Released Date/Time: Aug 11, 2023 11:52 AM Reporting Lab: [address] [address] Performing Lab: [address] [address] CHOLESTEROL 142 mg/dL TRIGLYCERIDE 179 mg/dL H 0-150 LDL calculated 64 mg/dL 0-129 CHOL/HDL 3.4 HDL CHOLESTEROL 42 mg/dL 40-60 May 08, 2024 11:24 AM [facility] BASIC METABOLIC PANEL (fasting) Specimen Type: SERUM No comment entered. Ordering Provider: JACINTO CAI Report Released Date/Time: Aug 11, 2023 11:52 AM Reporting Lab: [address] [address] Performing Lab: [address] [address] UREA NITROGEN 19 mg/dL 7-25 GLUCOSE 216 [...] Aug 11, 2023 11:52 AM Reporting Lab: [address] [address] Performing Lab: [address] [address] WBC 4.08 10*3/uL L 4.50-11.00 RBC 4.53 [...] Aug 11, 2023 11:52 AM Reporting Lab: [address] [address] Performing Lab: [facility] [address] [facility] [address] WBC 4.08 10*3/uL L 4.50-11.00 RBC 4.53 [...] Nov 27, 2023 07:39 PM Reporting Lab: [facility] [address] [facility] [address] Performing Lab: [facility] [address] [facility] [address] OSMOLALITY (SERUM) [phone] May 08, 2024 11:23 AM [facility] CALCIUM Specimen Type: SERUM Comment: *GLUCOSE Not Performed: May 08, 2024@11:36 [place] [id number] *HEALTH SAFETY INSTRUCTOR Reason: Duplicate *UREA NITROGEN Not Performed: May 08, 2024@11:36 by [id number] *HEALTH SAFETY INSTRUCTOR Reason: Duplicate *CREATININE (eGFR 2020) Not Performed: May 08, 2024@11:36 by [id number] *HEALTH SAFETY INSTRUCTOR Reason: Duplicate *SODIUM Not Performed: May 08, 2024@11:36 by [id number] *HEALTH SAFETY INSTRUCTOR Reason: Duplicate *CHLORIDE Not Performed: May 08, 2024@11:36 by [id number] *HEALTH SAFETY INSTRUCTOR Reason: Duplicate *CO2 Not Performed: May 08, 2024@11:36 by [id number] *HEALTH SAFETY INSTRUCTOR Reason: Duplicate *POTASSIUM Not Performed: May 08, 2024@11:36 by [id number] *HEALTH SAFETY INSTRUCTOR Reason: Duplicate Ordering Provider: ALLIE CUELLO Report Released Date/Time: Nov 27, 2023 07:39 PM Reporting Lab: [facility] [address] [facility] [address] Performing Lab: [facility] [address] [facility] [address] CALCIUM 8.5 mg/dL 8.5-10.2 May 08, 2024 11:23 AM [facility] VITAMIN D (25-OH) Specimen Type: SERUM No comment entered. Ordering Provider: ALLIE CUELLO Report Released Date/Time: Nov 27, 2023 07:39 PM Reporting Lab: [facility] [address] [facility] [address] Performing Lab: [facility] [address] [facility] [address] VITAMIN D (25-OH) 46 ng/mL 20-50 Social [...] VA-TOBACCO FORMER USER [facility] [place] [facility] Tobacco Use History This section includes a history of the smoking, or tobacco-related health factors, that were collected on or before the date of the Encounter. The data comes from the [place] facility where the Encounter took place. Date/Time Smoking Status/Tobac co Use Comment Facility Jun 05, 2023 11:00 AM VA-TOBACCO QUIT 15 YRS OR MORE [facility] [place] [facility] Jun 06, 2022 01:00 PM VA-TOBACCO FORMER USER [facility] [place] [facility] Jun 06, 2022 01:00 PM VA-TOBACCO QUIT 15 YRS OR MORE [facility] [place] [facility] Jun 30, 2021 02:37 PM VA-TOBACCO FORMER USER [facility] [place] [facility] Jun 30, 2021 02:37 PM VA-TOBACCO QUIT 5 TO < 15 YRS [facility] [place] [facility] May 22, 2020 03:30 PM VA-TOBACCO NEVER USED [facility] [place] [facility] May 08, 2018 02:03 PM VA-TOBACCO FORMER USER [facility] [place] [facility] May 08, 2018 02:03 PM VA-TOBACCO QUIT 15 YRS OR MORE [facility] [place] [facility] November 10, 2017 02:33 PM QUIT TOBACCO USE > 7 YEARS AGO [facility] [place] [facility] October 21, 2016 01:55 PM QUIT TOBACCO USE > 7 YEARS AGO [facility] [place] [facility] Sep 18, 2015 11:24 AM QUIT TOBACCO USE > 7 YEARS AGO stopped 50 years ago [facility] [place] [facility] May 19, 2005 08:01 AM HISTORY OF SMOKING [facility] [place] [facility] May 31, 2004 01:02 PM HISTORY OF SMOKING [facility] [place] [facility] Jun 04, 2003 07:57 AM HISTORY OF SMOKING [facility] [place] [facility] Jun 03, 2002 01:11 PM HISTORY OF SMOKING [facility] [place] [facility] Jun 03, 2002 01:11 PM QUIT TOBACCO USE > 7 YEARS AGO [facility] [place] [facility] Advance Directives: All historical and current [...] Jun 02, 2023 ADVANCE DIRECTIVE MARYANNEJENNIFER [facility] Radiology Reports: +/- 30 days of [...] 2024 02:24 PM SHOULDER,COMPLETE(RIGHT): BEBO SHEPHERD Nisa [id number] -1940 M Ex Date: APR 02, 2024@14:24 Req Phys: TOÑO CAI Loc: CWM/NO/PACT 3 (Req'g Loc) Img Loc: [facility] 1 Service: Unknown [facility] [place] [address] (Case 50 COMPLETE) SHOULDER,COMPLETE(RIGHT) (RAD Detailed) CPT:72544 Reason for Study: lateral pain after a fall last week. Clinical History: Report Status: Verified Date Reported: APR 02, 2024 Date Verified: APR 02, 2024 Inspector Penetrant E-Sig:/ES/NAPOLEON ELLIOTT JR Report: Study: AP internally [...] Primary Interpreting Staff: NAPOLEON ELLIOTT JR, Radiologist (Inspector Penetrant) /EANAPOLEON LUTHER JR [facility] [place] [facility] Encounter Notes: All associated encounter notes This section contains the clinical notes associated to the Encounter. Date/Time Encounter Note(s) Provider Source May 02, 2024 07:46 AM PHYSICAL THERAPY N OTE: LOCAL TITLE: PHYSICAL THERAPY STANDARD TITLE: PHYSICAL THERAPY NOTE DATE OF NOTE: MAY 02, 2024@07:46 ENTRY DATE: MAY 02, 2024@07:46:47 AUTHOR: NAVJOT SOTO COSIGNER: URGENCY: STATUS: COMPLETED Initial Evaluation date: Mar Treatment #: 2 Treatment time: 30 mins Diagnosis: Dorsalgia, unspecified(ICD-10-CM M54.9) Provider: Ned PT Treatment Precautions: Patient identified by full name and date of SUBJECTIVE: have good days and some bad days, less frequently than they were. I am going soon to have cortizone injection in the back. Dr. Mirtha REYES dr, switched medications, have to chicken picker the new prescription still. Doing a lot of work on the house putting in a door, doing mold remediation and painting muñiz and did the floor. I have some pain in the aftermath but not to bad. Not very consistent with HEP due to the house work I am doing. I am still getting the pain when I get out of bed, after morning routine getting ready fo the day. I am taking a couple 650 tylonel to sleep, night time pain is worse than morning pain at this point. After nustep no pain. OBJECTIVE: THERAPEUTIC EXERCISE: MINUTES:25 Warm-up: [x]Nustep []Recumbent Elliptical []Recumbent Bike []Treadmill []UBE [3]Level: [8]Minutes: seated clams grntb seated marching grntb table bridges from seated position with arms behind body to lift to bridge, noted difficulty with this due to wrist ROM (though trying to find seated ex, as the patient noted this may improve compliance with HEP.) SELF CARE/EDUCATION: MINUTES: HEP:Access Code: [email or web address] URL: [email or web address] Date: 05/02/2024 Prepared by: Navjot Soto Exercises - Seated [...] 3 reps - 30 hold - Supine Lower Trunk Rotation - 1-2 x daily - 7 x weekly - 3 sets - 10 reps - first thing in the morning and right before going to sleep hold - BUE Weight-Bearing Activity Sitting to Bridging - 3 sets - 5 reps - 5secs hold - Seated March with Resistance - 3 sets - 10 reps - Seated Hip Abduction with Resistance - 3 sets - 10 reps - 5secs hold Patient education was provided for all aspects of care during this clinical encounter. ASSESSMENT:Patient reports overall no significant changes though he reports he continues to work on house and do roma, painting and more, all of which are potentially provocative activities given his decreased conditioning level, tried to encourage to do more HEP, provided seated rx as he noted this would increase his ability to perform them throughout the day. PLAN: [x]Continue with plan of care. [x]Pt to perform HEP as prescribed. Goals, within: [x]6-8sessions [x]Perform household ADL's to [...] LE flexibility and optimal progress with PT. Pt to be seen 1x/week for 5-6 sessions POC to include: [x]Low impact cardio: [x]Nustep [x]Recumbent elliptical [x]Manual: [x]STM/DTM [x]IASTM [x]Therex: [x]Progressive Core [x]Progressive LQ [x]Lumbar flex [x]LQ flex [x]Neuro Re-education: [x]Static [x]Dynamic [x]Education: [x]Posture [x]Bodymechanics [x]Self-care strategies [x]Modalities(PRN): [x]Heat/Ice [NO]Mechanical traction [x]Biofreeze [x]At next visit:discuss compliance and modify HEP for improved compliance, if not compliant over next 2 sessions may dc due to lack of compliance. /thomas/ NAVJOT SOTO PT, DPT PHYSICAL THERAPIST Signed: 05/03/2024 10:46 NAVJOT SOTO [facility] [place] [facility]
--- OUTSIDE RECORDS SUMMARY | 2024-06-14 13:23 | XMS_ITS | Encounter Summary ---
Author Name [facility] [place] [facility] [place] [facility] [place] [facility] [place] Address [address] [place] [id number] Care Team Providers Care Shuttle Veneering Supervisor Name Role Phone TOÑO CAI Primary Care [...] O MEDEX BRONZ E Mar 19, 2004 [id number] [phone] HOLLIE SHEPHERD PATIENT [place] MED[place] SUPPLEMEN MASTER MEDEX BRONZ E Mar 19, 2004 [id number] [phone] HOLLIE SHEPHERD PATIENT [place] SUPPLEMEN MASTER MEDEX BRONZ E Mar 19, 2004 [id number] [phone] HOLLIE SHEPHERD PATIENT BCBS [facility] MEDICARE SUPPLEMEN MASTER PSUED O MEDEX BRONZ E Mar 19, 2004 [id number] HOLLIE SHEPHERD PATIENT MEDICARE (WNR) MEDICARE (M) PART B Mar 19, 2004 PART B [id number] HOLLIE SHEPHERD PATIENT MEDICARE (WNR) MEDICARE (M) PART B Mar 19, 2004 PART B [id number] HOLLIE SHEPHERD ALD PATIENT MEDICARE (WNR) MEDICARE (M) PART B Mar 19, 2004 PART B [id number] HOLLIE SHEPHERD ALD PATIENT MEDICARE (WNR) MEDICARE (M) PART A Feb 17, 2003 PART A [id number] HOLLIE SHEPHERD ALD PATIENT MEDICARE (WNR) MEDICARE (M) PART A Feb 17, 2003 PART A [id number] HOLLIE SHEPHERD ALD PATIENT MEDICARE (WNR) MEDICARE (M) PART A Feb 17, 2003 PART A [id number] [id number] HOLLIE SHEPHERD PATIENT MEDICARE (WNR) MEDICARE (M) PART A Feb 17, 2003 PART A [id number] [id number] HOLLIE SHEPHERD PATIENT MEDICARE (WNR) MEDICARE (M) PART B Feb 17, 2003 PART B [id number] HOLLIE SHEPHERD PATIENT MEDICARE (WNR) MEDICARE (M) PART A Feb 17, 2003 PART A [id number] [phone] HOLLIE SHEPHERD PATIENT MEDICARE (WNR) MEDICARE (M) PART B Feb 17, 2003 PART B [id number] HOLLIE SHEPHERD PATIENT Selected Encounter This section includes the information on record at [place] for the Encounter. Date/Time Encounter Type Encounter Description Reason Pro vider Source May 13, 2024 12:00 AM Outpatient Encounter COMMUNITY CARE CONSULT IHE Encounter Template Text not used by [place] Plan of Treatment: Future Appointments (+ 6 months) and Future Tests (+/- 45 days) The Plan of Treatment section includes future care activities for the patient from all [place] treatmentfacilities. This section includes future appointments and [...] - MEDICINE [facility] [place] [facility] Jun 05, 2024 12:00 PM AMBULATORY [place] [facility] Jun 05, 2024 12:00 PM AMBULATORY - PSYCHIATRY [facility] [place] [facility] Jun 17, 2024 10:30 AM AMBULATORY - MEDICINE [facility] [place] [facility] Aug 06, 2024 10:00 AM AMBULATORY - MEDICINE [facility] [place] [facility] Oct 02, 2024 12:00 PM AM[place]ULATORY [place] [facility] Oct 02, 2024 12:00 PM AMBULATORY - PS[facility]CHIATRY [facility] [place] [facility] Oct 03, 2024 02:00 PM [facility] [place] [facility] Active, Pending, and Scheduled Orders This section includes a listing of several types of active, pending, and scheduled orders, including clinic medications orders, diagnostic test orders, procedure orders and consult orders; where the start date of the order is 45 days before the date of the Encounter or 45 days after the date of theEncounter. The data comes from all [place] treatment facilities. Test Date/Time Test Type Test Details Facility Name May 29, 2024 06:36 PM Consult Order PHARMACY/N HM OUTPT Cons [facility] Jun 10, 2024 11:25 AM Consult Order COMMUNITY CARE-UROLOGY Cons Bone Density Technician's [facility] Lab Results: +/- 30 days of the encounter This section includes the Chemistry and Hematology Lab Results on record with [place] for the patient. Radiology Reports and Pathology Reports are provided separately, in subsequent sections. Lab Results This section contains the Chemistry/Hematology Results that were resulted 30 days before or 30 daysafter the date of the Encounter. Date/Time Source Result Type Result - Unit Interpretation Reference Range Comment Jun 04, 2024 10:27 AM [facility] HEMOGLOBIN A1C PANEL Specimen Type: BLOOD [...] May 29, 2024 06:36 PM Reporting [facility]: [facility] [place] [facility] [address] [facility] [address] Performing Lab: [facility] [address] [address] HEMOGLOBIN A1C 6.5 H 4.0-5.6 Jun 04, 2024 10:27 AM [facility] TSH Specimen Type: SERUM No comment entered. Ordering Provider: JAUN LUIS CAIM F Report Released Date/Time: May 29, 2024 06:36 PM Reporting Lab: [facility] [address] [facility] [address] Performing Lab: [facility] [address] [address] TSH 1.78 u[IU]/mL 0.35-5.00 Jun 04, 2024 10:27 AM [facility] MICROALBUMIN CREATININE RATIO PANEL Specimen Type: URINE No comment entered. Ordering Provider: JUAN LUIS CAIM F Report Released Date/Time: May 29, 2024 06:36 PM Reporting Lab: [facility] [address] [facility] [address] Performing Lab: [facility] [address] [address] MICROALBUMIN/C REATININE RATIO 36.0 mg/g H 0-29.9 MICROALBUMIN,Q UANTITATIVE 2.8 mg/dL RR UNAVAIL CREATININE URINE 77.84 mg/dL Jun 04, 2024 10:27 AM [facility] LIPID PANEL, NON FASTING Specimen Type: SERUM No comment entered. Ordering Provider: JUAN LUIS CAI F Report Released Date/Time: May 29, 2024 06:36 PM Reporting Lab: [facility] [address] [address] Performing Lab: [facility] [address] CHOLESTEROL 151 mg/dL TRIGLYCERIDE 146 mg/dL 0-150 LDL calculated 73 mg/dL 0-129 CHOL/HDL 3.1 HDL CHOLESTEROL 49 mg/dL 40-60 Jun 04, 2024 10:27 AM [facility] LIVER FUNCTION Specimen Type: SERUM No comment entered. Ordering Provider: JUAN LUIS CAI F Report Released Date/Time: May 29, 2024 06:36 PM Reporting Lab: [address] [address] Performing Lab: [address] [address] PROTEIN,TOTAL 5.5 g/dL L 6.0-8.3 ALBUMIN 3.7 g/dL 3.5-5.0 ALKALINE PHOSPHATASE 78 U/L 40-150 AST 20 U/L 5-34 ALT 19 U/L BILIRUBIN, TOTAL 1.3 mg/dL H 0.2-1.2 BILIRUBIN, DIRECT 0.5 mg/dL 0-0.5 Jun 04, 2024 10:27 AM [facility] BASIC METABOLIC PANEL (non-fasting) Specimen Type: SERUM No comment entered. Ordering Provider: JUAN LUIS CAI F Report Released Date/Time: May 29, 2024 06:36 PM Reporting Lab: [address] [address] Performing Lab: [address] [address] UREA NITROGEN 19 mg/dL 7-25 GLUCOSE 187 mg/dL H 65-100 SODIUM 140 mmol/L 135-145 POTASSIUM 3.8 mmol/L 3.5-5.0 CHLORIDE 103 mmol/L 100-110 CO2 25 meq/L 20-30 CREATININE, Serum 0.97 mg/dL 0.50-1.40 eGFR(CKD-EPI 2020) 76 mL/min >60 May 08, 2024 11:24 AM [facility] TESTOSTERONE, TOTAL (WHV) Specimen Type: SERUM No comment entered. Ordering Provider: JUAN LUIS CAI F Report Released Date/Time: Aug 11, 2023 11:52 AM Reporting Lab: [facility] [address] [facility] [address] Performing Lab: [address] [address] TESTOSTERONE, TOTAL (WHV) 44.33 ng/dL L 220.00-892 .00 May 08, 2024 11:24 AM [facility] LIPID PANEL FASTING Specimen Type: SERUM No comment entered. Ordering Provider: JUAN LUIS CAI F Report Released Date/Time: Aug 11, 2023 11:52 AM Reporting Lab: [address] [address] Performing Lab: [address] [address] CHOLESTEROL 142 mg/dL TRIGLYCERIDE 179 mg/dL H 0-150 LDL calculated 64 mg/dL 0-129 CHOL/HDL 3.4 HDL CHOLESTEROL 42 mg/dL 40-60 May 08, 2024 11:24 AM [facility] LIVER FUNCTION Specimen Type: SERUM No comment entered. Ordering Provider: JUAN LUIS CAI Report Released Date/Time: Aug 11, 2023 11:52 AM Reporting Lab: [address] [address] Performing Lab: [address] [address] PROTEIN,TOTAL 5.5 g/dL L 6.0-8.3 ALBUMIN 3.6 g/dL 3.5-5.0 ALKALINE PHOSPHATASE 71 U/L 40-150 AST 20 U/L 5-34 ALT 24 U/L BILIRUBIN, TOTAL 1.1 mg/dL 0.2-1.2 May 08, 2024 11:24 AM [facility] BASIC METABOLIC PANEL (fasting) Specimen Type: SERUM No comment entered. Ordering Provider: JUAN LUIS CAI F Report Released Date/Time: Aug 11, 2023 11:52 AM Reporting Lab: [address] [place] [address] Performing Lab: [facility] [address] [facility] [address] UREA NITROGEN 19 mg/dL 7-25 GLUCOSE 216 mg/dL H 65-100 SODIUM 142 mmol/L 135-145 POTASSIUM 3.5 mmol/L 3.5-5.0 CHLORIDE 107 mmol/L 100-110 CO2 25 meq/L 20-30 CREATININE, Serum 0.84 mg/dL 0.50-1.40 eGFR(CKD-EPI 2020) 85 mL/min >60 May 08, 2024 11:24 AM [facility] CBC Specimen Type: BLOOD No comment entered. Ordering Provider: JUAN LUIS CAI F Report Released Date/Time: Aug 11, 2023 11:52 AM Reporting Lab: [address] [address] Performing Lab: [address] [address] WBC 4.08 10*3/uL L 4.50-11.00 RBC 4.53 10*6/uL 4.23-5.66 HGB 13.1 g/dL 12.8-17 HCT 39.9 39.2-50.4 MCV 88.1 fL 82-99 MCHC 32.8 g/dL 30.8-35.1 PLT 130 10*3/uL L 140-360 RDW-CV 14.5 12.0-16.0 MCH 28.9 pg 26.2-32.6 May 08, 2024 11:24 AM [facility] CBC AND DIFF (AUTO) Specimen Type: BLOOD No comment entered. Ordering Provider: JUAN LUIS CAI F Report Released Date/Time: Aug 11, 2023 11:52 AM Reporting Lab: [address] [address] Performing Lab: [address] [address] WBC 4.08 10*3/uL L 4.50-11.00 RBC 4.53 [...] 10*3/uL 0.00-0.00 May 08, 2024 11:23 AM [facility] OSMOLALITY (SERUM) Specimen Type: SERUM No comment entered. Ordering Provider: ALLIE CUELLO Report Released Date/Time: Nov 27, 2023 07:39 PM Reporting Lab: [facility] [address] [facility] [address] Performing Lab: [facility] [address] [facility] [address] OSMOLALITY (SERUM) 299 280-300 May 08, 2024 11:23 AM [facility] CALCIUM Specimen Type: SERUM Comment: *GLUCOSE Not Performed: May 08, 2024@11:36 by [id number] *PAPER INSPECTOR Reason: Duplicate *UREA NITROGEN Not Performed: May 08, 2024@11:36 by [id number] *PAPER INSPECTOR Reason: Duplicate *CREATININE (eGFR 2020) Not Performed: May 08, 2024@11:36 by [id number] *PAPER INSPECTOR Reason: Duplicate *SODIUM Not Performed: May 08, 2024@11:36 by [id number] *PAPER INSPECTOR Reason: Duplicate *CHLORIDE Not Performed: May 08, 2024@11:36 by [id number] *PAPER INSPECTOR Reason: Duplicate *CO2 Not Performed: May 08, 2024@11:36 by [id number] *PAPER INSPECTOR Reason: Duplicate *POTASSIUM Not Performed: May 08, 2024@11:36 by [id number] *PAPER INSPECTOR Reason: Duplicate Ordering Provider: ALLIE CUELLO Report Released Date/Time: Nov 27, 2023 07:39 PM Reporting Lab: [facility] [address] [facility] [address] Performing Lab: [address] [address] CALCIUM 8.5 mg/dL 8.5-10.2 May 08, 2024 11:23 AM [facility] VITAMIN D (25-OH) Specimen Type: SERUM No comment entered. Ordering Provider: ALLIE CUELLO Report Released Date/Time: Nov 27, 2023 07:39 PM Reporting Lab: [facility] [address] [facility] [address] Performing Lab: [address] [address] VITAMIN D (25-OH) 46 ng/mL 20-50 Social History: Smoking Status (Most current) and Tobacco Use (All prior to encounter date) This section includes the most current, and the historical, smoking and tobacco- related health factors from the [place] facility where the Encounter took place. Current Smoking Status This section includes the most current smoking, or tobacco-related health factor, from the [place] facility where the Encounter took place. Date/Time Current Smoking Status Comment [facility] Jun 05, 2023 11:00 AM VA-TOBACCO FORMER USER [facility] Tobacco Use History This section includes a history of the smoking, or tobacco-related health factors, that were collected on or before the date of the Encounter. The data comes from the [place] facility where the Encounter took place. Date/Time Smoking Status/Tobac co Use Comment Facility Jun 05, 2023 11:00 AM VA-TOBACCO QUIT 15 YRS OR MORE [facility] [place] [facility] Jun 06, 2022 01:00 PM VA-TOBACCO FORMER USER [facility] [place] [facility] Jun 06, 2022 01:00 PM VA-TOBACCO QUIT 15 YRS OR MORE [facility] [place] [facility] Jun 30, 2021 02:37 PM VA-TOBACCO FORMER USER [facility] [place] [facility] Jun 30, 2021 02:37 PM VA-TOBACCO QUIT 5 TO < 15 YRS [facility] [place] [facility] May 22, 2020 03:30 PM VA-TOBACCO NEVER USED [facility] [place] [facility] May 08, 2018 02:03 PM VA-TOBACCO FORMER USER [facility] [place] [facility] May 08, 2018 02:03 PM VA-TOBACCO QUIT 15 YRS OR MORE [facility] [place] [facility] November 10, 2017 02:33 PM QUIT TOBACCO USE > 7 YEARS AGO [facility] [place] [facility] October 21, 2016 01:55 PM QUIT TOBACCO USE > 7 YEARS AGO [facility] [place] [facility] Sep 18, 2015 11:24 AM QUIT TOBACCO USE > 7 YEARS AGO stopped 50 years ago [facility] [place] [facility] May 19, 2005 08:01 AM HISTORY OF SMOKING [facility] [place] [facility] May 31, 2004 01:02 PM HISTORY OF SMOKING [facility] [place] [facility] Jun 04, 2003 07:57 AM HISTORY OF SMOKING [facility] [place] [facility] Jun 03, 2002 01:11 PM HISTORY OF SMOKING [facility] [place] [facility] Jun 03, 2002 01:11 PM QUIT TOBACCO USE > 7 YEARS AGO [facility] [place] [facility] Advance Directives: All historical and current [...] Jun 02, 2023 ADVANCE DIRECTIVE JENNIFER QUIROS [facility] Encounter Notes: All associated encounter notes This section contains the clinical notes associated to the Encounter. Date/Time Encounter Note(s) Provider Source May 13, 2024 12:00 AM NONVA CONSULT: LOCAL TITLE: COMMUNITY CARE-CONSULT RESULT NOTE STANDARD TITLE: NONVA CONSULT DATE OF NOTE: MAY 13, 2024 ENTRY DATE: JUN 13, 2024@14:13:40 AUTHOR: JENNIFER QUIROS EXP COSIGNER: URGENCY: STATUS: COMPLETED VistA Imaging - Scanned Document SCANNED DOCUMENT SIGNATURE NOT REQUIRED Electronically Filed: 06/13/2024 by: JENNIFER BOWERS [facility]
--- OUTSIDE RECORDS SUMMARY | 2024-06-14 13:23 | XMS_ITS | Encounter Summary ---
Author Name [facility] [place] Address [address] [place] [address] Care Team Providers Care Transmission Supervisor Name Role Phone TOÑO CAI Primary [...] O MEDEX BRONZ E Mar 19, 2004 [id number] HOLLIE SHEPHERD PATIENT [place] SUPPLEMEN MASTER MEDEX BRONZ E Mar 19, 2004 [id number] [phone] HOLLIE SHEPHERD PATIENT [place] SUPPLEMEN MASTER MEDEX BRONZ E Mar 19, 2004 [id number] [phone] HOLLIE SHEPHERD PATIENT BCBS [facility] MEDICARE SUPPLEMEN MASTER PSUED O MEDEX BRONZ E Mar 19, 2004 [id number] [phone] HOLLIE SHEPHERD PATIENT MEDICARE (WNR) MEDICARE (M) PART B Mar 19, 2004 PART B [id number] HOLLIE SHEPHERD PATIENT MEDICARE (WNR) MEDICARE (M) PART B Mar 19, 2004 PART B [id number] CORAHOLLIE SILVA ALD PATIENT MEDICARE (WNR) MEDICARE (M) PART B Mar 19, 2004 PART B [id number] CORA,HOLLIE ALD PATIENT MEDICARE (WNR) MEDICARE (M) PART A Feb 17, 2003 PART A [id number] [phone] CORA,HOLLIE ALD PATIENT MEDICARE (WNR) MEDICARE (M) PART A Feb 17, 2003 PART A [id number] CORAHOLLIE SILVA ALD PATIENT MEDICARE (WNR) MEDICARE (M) PART A Feb 17, 2003 PART A [id number] CORAHOLLIE SILVA ALD PATIENT MEDICARE (WNR) MEDICARE (M) PART A Feb 17, 2003 PART A [id number] [phone] CORAHOLLIE SILVA ALD PATIENT MEDICARE (WNR) MEDICARE (M) PART B Feb 17, 2003 PART B [id number] CORAHOLLIE SILVA ALD PATIENT MEDICARE (WNR) MEDICARE (M) PART A Feb 17, 2003 PART A [id number] HOLLIE SHEPHERD ALD PATIENT MEDICARE (WNR) MEDICARE (M) PART B Feb 17, 2003 PART B [id number] HOLLIE SHEPHERD PATIENT Selected Encounter This section includes the information on record at [place] for the Encounter. Date/Time Encounter Type Encounter Description Reason Pro vider Source IHE Encounter Template Text not used by [place] Advance Directives: All historical and current Section [...] Jun 02, [address]
--- OUTSIDE RECORDS SUMMARY | 2024-06-14 13:23 | XMS_ITS | Encounter Summary ---
Author Name [facility] [place] Organization [facility] [place] Address [address] [place] [id number] Care Team Providers Care Logistics Specialist Name Role Phone TOÑO CAI Primary [...] [place] MED[place] SUPPLEMEN MASTER PSUED O MEDEX BRON E Mar 19, 2004 [id number] HOLLIE SHEPHERD PATIENT [place] MED[place] SUPPLEMEN MASTER MEDEX BRONZ E Mar 19, 2004 [id number] HOLLIE SHEPHERD PATIENT [place] SUPPLEMEN MASTER MEDEX BRONZ E Mar 19, 2004 [id number] HOLLIE SHEPHERD PATIENT BCBS [facility] MEDICARE SUPPLEMEN MASTER PSUED O MEDEX BRONZ E Mar 19, 2004 [id number] [phone] HOLLIE SHEPHERD PATIENT MEDICARE (WNR) MEDICARE (M) PART B Mar 19, 2004 PART B [id number] [phone] HOLLIE SHEPHERD PATIENT MEDICARE (WNR) MEDICARE (M) PART B Mar 19, 2004 PART B [id number] [phone] HOLLIE SHEPHERD PATIENT MEDICARE (WNR) MEDICARE (M) PART B Mar 19, 2004 PART B [id number] HOLLIE SHEPHERD ALD PATIENT MEDICARE (WNR) MEDICARE (M) PART A Feb 17, 2003 PART A [id number] HOLLIE SHEPHERD ALD PATIENT MEDICARE (WNR) MEDICARE (M) PART A Feb 17, 2003 PART A [id number] HOLLIE SHEPHERD ALD PATIENT MEDICARE (WNR) MEDICARE (M) PART A Feb 17, 2003 PART A [id number] [phone] HOLLIE SHEPHERD PATIENT MEDICARE (WNR) MEDICARE (M) PART A Feb 17, 2003 PART A [id number] HOLLIE SHEPHERD PATIENT MEDICARE (WNR) MEDICARE (M) PART B Feb 17, 2003 PART B [id number] [phone] HOLLIE SHEPHERD PATIENT MEDICARE (WNR) MEDICARE (M) PART A Feb 17, 2003 PART A [id number] [phone] HOLLIE SHEPHERD PATIENT MEDICARE (WNR) MEDICARE (M) PART B Feb 17, 2003 PART B [id number] HOLLIE SHEPHERD PATIENT Selected Encounter This section includes the information on record at [place] for the Encounter. Date/Time Encounter Type Encounter Description Reason Pro vider Source Jun 07, 2024 02:20 PM Outpatient Encounter ADMIN PAT ACTIVTIES (MASNONCT) I[facility] Encounter Template Text not used by [place] Plan of Treatment: Future Appointments (+ 6 months) and Future Tests (+/- 45 days) The Plan of Treatment section includes future care activities for the patient from all [place] treatmentfacilities. This section includes future appointments and future orders which are active, pending or scheduled. Future Appointments This section includes appointments that were scheduled to occur 6 months from the date of the Encounter, up to a maximum of 20 appointments. The data comes from all [place] treatment facilities. Appointment Date/Time Appointment Type Appointme nt Facility Name Jun 17, 2024 10:30 AM AMBULATORY - MEDICINE [place] [facility] [place] [facility] Aug 06, 2024 10:00 AM AMBULATORY - MEDICINE [place] [facility] [place] [facility] Oct 02, 2024 12:00 PM AMBULATORY - [place]CH[place]ATRY [place] [facility] Oct 02, 2024 12:00 PM AMBULATORY - PS[place]CHIATRY [place] [facility] [place] [facility] Oct 03, 2024 02:00 PM AMBULATORY - MEDICINE [place] [facility] [place] [facility] Nov 27, 2024 11:00 AM AMBULATORY - MEDICINE [facility] Active, Pending, and Scheduled Orders This section includes a listing of several types of active, pending, and scheduled orders, including clinic medications orders, diagnostic test orders, procedure orders and consult orders; where the start date of the order is 45 days before the date of the Encounter or 45 days after the date of theEncounter. The data comes from all [place] treatment facilities. Test Date/Time Test Type Test Details Facility Name May 29, 2024 06:36 PM Consult Order PHARMACY/N HM OUTPT Cons Replanting Machine Crew[facility] [place] [facility] Jun 10, 2024 11:25 AM Consult Order COMMUNITY CARE-UROLOGY Cons Replanting Machine Crew's [facility] Lab Results: +/- 30 days of [...] Range Comment Jun 04, 2024 10:27 AM [facility] HEMOGLOBIN A1C PANEL Specimen Type: BLOOD Comment: Values obtained from A1C measurements can vary. For atypical A1C assays, a reported value of 7.0 could actually be between 6.72 and 7.28 if measured by a reference method. A reported value of 9.0 could actually be between 8.73 and 9.27. Ref: http://www.ngs p.org/CAPdata. asp Ordering Provider: VANWAGNER,WILL MAY F Report Released Date/Time: May 29, 2024 06:36 PM Reporting Lab: [place] [facility] [place] [facility] [address] [address] Performing Lab: [place] [facility] [place] [facility] [address] [address] HEMOGLOBIN A1C 6.5 H 4.0-5.6 Jun 04, 2024 10:27 AM [facility] TSH Specimen Type: SERUM No comment entered. Ordering Provider: JUAN LUIS CAI F Report Released Date/Time: May 29, 2024 06:36 PM Reporting Lab: [place] [facility] [place] [facility] [address] [address] Performing Lab: [place] [facility] [place] [facility] [address] [address] TSH 1.78 u[IU]/mL 0.35-5.00 Jun 04, 2024 10:27 AM [facility] MICROALBUMIN CREATININE RATIO PANEL Specimen Type: URINE No comment entered. Ordering Provider: JUAN LUIS CAI F Report Released Date/Time: May 29, 2024 06:36 PM Reporting Lab: [facility] [place] [place] [facility] [address] [address] Performing Lab: [facility] [place] [facility] [address] [address] MICROALBUMIN/C REATININE RATIO 36.0 mg/g H 0-29.9 MICROALBUMIN,Q UANTITATIVE 2.8 mg/dL RR UNAVAIL CREATININE URINE 77.84 mg/dL Jun 04, 2024 10:27 AM [facility] LIPID PANEL, NON FASTING Specimen Type: SERUM No comment entered. Ordering Provider: JUAN LUIS CAI F Report Released Date/Time: May 29, 2024 06:36 PM Reporting Lab: [place] [facility] [place] [facility] [address] [address] Performing Lab: [facility] [address] [address] CHOLESTEROL 151 mg/dL TRIGLYCERIDE 146 mg/dL 0-150 LDL calculated 73 mg/dL 0-129 CHOL/HDL 3.1 HDL CHOLESTEROL 49 mg/dL 40-60 Jun 04, 2024 10:27 AM [facility] LIVER FUNCTION Specimen Type: SERUM No comment entered. Ordering Provider: JUAN LUIS CAI F Report Released Date/Time: May 29, 2024 06:36 PM Reporting Lab: [address] [address] Performing Lab: [address] [address] PROTEIN,TOTAL 5.5 g/dL L 6.0-8.3 ALBUMIN 3.7 g/dL 3.5-5.0 ALKALINE PHOSPHATASE 78 U/L 40-150 AST 20 U/L 5-34 ALT 19 U/L BILIRUBIN, TOTAL 1.3 mg/dL H 0.2-1.2 BILIRUBIN, DIRECT 0.5 mg/dL 0-0.5 Jun 04, 2024 10:27 AM [facility] BASIC METABOLIC PANEL (non-fasting) Specimen Type: SERUM No comment entered. Ordering Provider: JUAN LUIS CAI F Report Released Date/Time: May 29, 2024 06:36 PM Reporting Lab: [address] [address] Performing Lab: [address] [address] UREA NITROGEN 19 mg/dL 7-25 GLUCOSE 187 mg/dL H 65-100 SODIUM 140 mmol/L 135-145 POTASSIUM 3.8 mmol/L 3.5-5.0 CHLORIDE 103 mmol/L 100-110 CO2 25 meq/L 20-30 CREATININE, Serum 0.97 mg/dL 0.50-1.40 eGFR(CKD-EPI 2020) 76 mL/min >60 Social History: Smoking Status (Most current) and Tobacco Use (All prior to encounter date) This section includes the most current, and the historical, smoking and tobacco- related health factors from the [place] facility where the Encounter took place. Current Smoking Status This section includes the most current smoking, or tobacco-related health factor, from the [place] facility where the Encounter took place. Date/Time Current Smoking Status Comment Facil ity Jun 05, 2023 11:00 AM VA-TOBACCO FORMER USER [place] [facility] [place] [facility] Tobacco Use History This section includes a history of the smoking, or tobacco-related health factors, that were collected on or before the date of the Encounter. The data comes from the [place] facility where the Encounter took place. Date/Time Smoking Status/Tobac co Use Comment [facility] Jun 05, 2023 11:00 AM VA-TOBACCO QUIT 15 YRS OR MORE [facility] [place] [facility] Jun 06, 2022 01:00 PM VA-TOBACCO FORMER USER [facility] [place] [facility] Jun 06, 2022 01:00 PM VA-TOBACCO QUIT 15 YRS OR MORE [facility] [place] [facility] Jun 30, 2021 02:37 PM VA-TOBACCO FORMER USER [facility] [place] [facility] Jun 30, 2021 02:37 PM VA-TOBACCO QUIT 5 TO < 15 YRS [place] [facility] [place] [facility] May 22, 2020 03:30 PM VA-TOBACCO NEVER USED [place] [facility] [place] [facility] May 08, 2018 02:03 PM VA-TOBACCO FORMER USER [facility] [place] [facility] May 08, 2018 02:03 PM VA-TOBACCO QUIT 15 YRS OR MORE [facility] [place] [facility] November 10, 2017 02:33 PM QUIT TOBACCO USE > 7 YEARS AGO [facility] [place] [facility] October 21, 2016 01:55 PM QUIT TOBACCO USE > 7 YEARS AGO [facility] [place] [facility] Sep 18, 2015 11:24 AM QUIT TOBACCO USE > 7 YEARS AGO stopped 50 years ago [facility] [place] [facility] May 19, 2005 08:01 AM HISTORY OF SMOKING [facility] [place] [facility] May 31, 2004 01:02 PM HISTORY OF SMOKING [facility] [place] [facility] Jun 04, 2003 07:57 AM HISTORY OF SMOKING [facility] [place] [facility] Jun 03, 2002 01:11 PM HISTORY OF SMOKING [facility] [place] [facility] Jun 03, 2002 01:11 PM QUIT TOBACCO USE > 7 YEARS AGO [facility] [place] [facility] Advance Directives: All historical and current Section Date Range: From patient's date of to the date document was created. This section includes ALL of a patient's completed or amended [place] Advance and Rescinded Directives. The entries below indicate that a directive exists for the patient, but an actual copy is not included with this document. The data comes from all [place] facilities. Date Advance Directives Provider Source Jun 02, 2023 ADVANCE DIRECTIVE MARYANNETRICEJENNIFER [facility] Encounter Notes: All associated encounter notes This section contains the clinical notes associated to the Encounter. Date/Time Encounter Note(s) Provider Source Jun 10, 2024 11:25 AM ADDENDUM: LOCAL TITLE: Addendum STANDARD TITLE: ADDENDUM DATE OF NOTE: JUN 10, 2024@11:25:44 ENTRY DATE: JUN 10, 2024@11:25:45 AUTHOR: ALLIE CUELLOIGNER: URGENCY: STATUS: COMPLETED Please call pt to notify that Urology consult has been renewed. Thank you. /thomas/ ALLIE CUELLO MD STAFF PHYSICIAN Signed: 06/10/2024 11:27 Receipt Acknowledged By: 06/10/2024 12:01 /thomas/ GABY ARIAS RN === --- Original Document --- 06/07/24 [facility]: SCHEDULING ADMINISTRATION: Patient Demographics Patient Name: BEBO SHEPHERD Patient Primary Phone: [phone] Patient Primary Address: [address] [place] [phone] Patient : 1940 Patient Age: 84 Caller/Recipient Relation to Patient: Self Caller Name: BEBO SHEPHERD Administrative Administrative Note Reason: Other Administrative Note Comments: Patient states, Needs Referral under community Care put back in for: [facility], He is appointment with them on 07/10/2024, 1330 , and to call his cell phone on file. IMPORTANT: This note was created by [facility] Contact [facility] staff. Please do not alert the staff member by adding them as a signer for future communications. Alerts are not monitored by this user. /thomas/ SHANTI [id number] [facility] Signed: 06/07/2024 14:20 Receipt Acknowledged By: * AWAITING SIGNATURE * VIJAYA KENDALL Juma 06/10/2024 08:34 /thomas/ ODILON SIMPSON LPN 06/10/2024 ADDENDUM STATUS: COMPLETED forwarded to Dr Cuello /benny SIMPSON LPN Signed: 06/10/2024 08:33 Receipt Acknowledged By: 06/10/2024 11:25 /thomas/ ALLIE CUELLO MD STAFF PHYSICIAN ALLIE CUELLO [facility] [place] [facility] Jun 10, 2024 08:33 AM ADDENDUM: LOCAL TITLE: Addendum STANDARD TITLE: ADDENDUM DATE OF NOTE: JUN 10, 2024@08:33:22 ENTRY DATE: JUN 10, 2024@08:33:23 AUTHOR: ODILON SIMPSON COSIGNER: URGENCY: STATUS: COMPLETED forwarded to Dr Cuello /benny SIMPSON LPN Signed: 06/10/2024 08:33 Receipt Acknowledged By: 06/10/2024 11:25 /thomas/ ALLIE CUELLO MD STAFF PHYSICIAN === --- Original Document --- 06/07/24 [facility]: SCHEDULING ADMINISTRATION: Patient Demographics Patient Name: BEBO SHEPHERD Patient Primary Phone: [phone] Patient Primary Address: [address] [place] [id number] Patient : 1940 Patient Age: 84 Caller/Recipient Relation to Patient: Self Caller Name: BEBO SHEPHERD Administrative Administrative Note Reason: Other Administrative Note Comments: Patient states, Needs Referral under community Care put back in for: [facility], He is appointment with them on 07/10/2024, 1330 , and to call his cell phone on file. IMPORTANT: This note was created by [facility] Clinical Contact Center staff. Please do not alert the staff member by adding them as a signer for future communications. Alerts are not monitored by this user. /thomas/ SHANTI [id number] [facility] Signed: 06/07/2024 14:20 Receipt Acknowledged By: * AWAITING SIGNATURE * VIJAYA KENDALL 06/10/2024 08:34 /thomas/ ODILON SIMPSON LPN ODILON SIMPSON LPN 06/10/2024 ADDENDUM STATUS: UNSIGNED You may not VIEW this UNSIGNED Addendum. ODILON SIMPSON [place] [facility] [place] [facility] Jun 07, 2024 02:20 PM ADMINISTRATIVE NOTE: LOCAL TITLE: [facility]: SCHEDULING ADMINISTRATION STANDARD TITLE: ADMINISTRATIVE NOTE DATE OF NOTE: JUN 07, 2024@14:20:17 ENTRY DATE: JUN 07, 2024@14:20:18 AUTHOR: SHANTI PATE COSIGNER: URGENCY: STATUS: COMPLETED [facility]: SCHEDULING ADMINISTRATION Has ADDENDA Patient Demographics Patient Name: BEBO SHEPHERD Patient Primary Phone: [phone] Patient Primary Address: [address] [place] [id number] Patient : 1940 Patient Age: 84 Caller/Recipient Relation to Patient: Self Caller Name: BEBO SHEPHERD Administrative Administrative Note Reason: Other Administrative Note Comments: Patient states, Needs Referral under community Care put back in for: [facility], He is appointment with them on 07/10/2024, 1330 , and to call his cell phone on file. IMPORTANT: This note was created by [facility] Clinical Contact Center staff. Please do not alert the staff member by adding them as a signer for future communications. Alerts are not monitored by this user. /thomas/ SHANTI [id number] [facility] Signed: 06/07/2024 14:20 Receipt Acknowledged By: 06/10/2024 14:05 /es/ VIJAYA KENDALL, RN REGISTERED NURSE 06/10/2024 08:34 /es/ ODILON SIMPSON LPN 06/10/2024 ADDENDUM STATUS: COMPLETED forwarded to Dr Cuello /thomas/ ODILON SIMPSON LPN Signed: 06/10/2024 08:33 Receipt Acknowledged By: 06/10/2024 11:25 /thomas/ ALLIE CUELLO MD STAFF PHYSICIAN 06/10/2024 ADDENDUM STATUS: COMPLETED Please call pt to notify that Urology consult has been renewed. Thank you. /benny CUELLO MD STAFF PHYSICIAN Signed: 06/10/2024 11:27 Receipt Acknowledged By: 06/10/2024 12:01 /thomas/ GABY ARIAS RN 06/10/2024 ADDENDUM STATUS: COMPLETED Done /thomas/ GABY ARIAS RN Signed: 06/10/2024 12:01 SHANTI PATE [facility]
--- OUTSIDE RECORDS SUMMARY | 2024-06-14 13:23 | XMS_ITS ---
Author Name [facility] [place] [facility] [place] Address [address] [place] [address] Care Team Providers Care Recovery Room Nurse Name Role Phone TOÑO CAI Primary Care [...] O MEDEX BRONZ E Mar 19, 2004 [id number] HOLLIE SHEPHERD PATIENT [place] MEDICARE SUPPLEMEN MASTER MEDEX BRONZ E Mar 19, 2004 [id number] HOLLIE SHEPHERD PATIENT [place] SUPPLEMEN MASTER MEDEX BRONZ E Mar 19, 2004 [id number] [phone] HOLLIE SHEPHERD PATIENT BCBS [facility] MEDICARE SUPPLEMEN MASTER PSUED O MEDEX BRONZ E Mar 19, 2004 [id number] HOLLIE SHEPHERD PATIENT MEDICARE (WNR) MEDICARE (M) PART B Mar 19, 2004 PART B [id number] HOLLIE SHEPHERD PATIENT MEDICARE (WNR) MEDICARE (M) PART B Mar 19, 2004 PART B [id number] HOLILE SHEPHERD ALD PATIENT MEDICARE (WNR) MEDICARE (M) PART B Mar 19, 2004 PART B [id number] [phone] HOLLIE SHEPHERD ALD PATIENT MEDICARE (WNR) MEDICARE (M) PART A Feb 17, 2003 PART A [id number] HOLLIE SHEPHERD ALD PATIENT MEDICARE (WNR) MEDICARE (M) PART A Feb 17, 2003 PART A [id number] HOLLIE SHEPHERD ALD PATIENT MEDICARE (WNR) MEDICARE (M) PART A Feb 17, 2003 PART A [id number] [phone] HOLLIE SHEPHERD PATIENT MEDICARE (WNR) MEDICARE (M) PART A Feb 17, 2003 PART A [id number] HOLLIE SHEPHERD PATIENT MEDICARE (WNR) MEDICARE (M) PART B Feb 17, 2003 PART B [id number] [phone] HOLLIE SHEPHERD PATIENT MEDICARE (WNR) MEDICARE (M) PART A Feb 17, 2003 PART A [id number] HOLLIE SHEPHERD PATIENT MEDICARE (WNR) MEDICARE (M) PART B Feb 17, 2003 PART B [id number] HOLLIE SHEPHERD PATIENT Selected Encounter This section includes the information on record at [place] for the Encounter. Date/Time Encounter Type Encounter Description Reason Provider Source Jun 05, 2024 12:[address] [facility] - IND ICD-10-CM F33.9 Major depressive disorder, recurrent, unspecified MEREDITH,GIHYUN IHE Encounter Template Text not used by [place] Assessments - Encounter Diagnoses This section includes the primary and secondary diagnoses documented for the Encounter. Date/Time Primary/Secondary Diagnosis Diagnosis Name Provider Source Jun 05, 2024 01:45 PM PRIMARY Major depressive disorder, recurrent, unspecified MEREDITH,GIHYUN [place] [facility] [place] [facility] Plan of Treatment: Future Appointments (+ 6 months) and Future Tests (+/- 45 days) The Plan of Treatment section includes future care activities for the patient from all [place] [facility] [place]. This section includes future appointments and future orders which are active, pending or scheduled. Future Appointments This section includes appointments that were scheduled to occur 6 months from the date of the Encounter, up to a maximum of 20 appointments. The data comes from all [facility] facilities. Appointment Date/Time Appointment Type Appointme nt Facility Name Jun 17, 2024 10:30 AM AMBULATORY - MEDICINE [facility] [place] [facility] Aug 06, 2024 10:00 AM AMBULATORY MEDICINE [place] [facility] [place] [facility] Oct 02, 2024 12:00 PM [facility] Oct 02, 2024 12:00 [facility] [place] [facility] Oct 03, 2024 02:00 PM AMBULATORY - MEDICINE [facility] [place] [facility] Nov 27, 2024 11:00 AM [facility] Active, Pending, and Scheduled Orders This section includes a listing of several types of active, pending, and scheduled orders, including clinic medications orders, diagnostic test orders, procedure orders and consult orders; where the start date of the order is 45 days before the date of the Encounter or 45 days after the date of theEncounter. The data comes from all [facility] facilities. Test Date/Time Test Type Test Details Facility Name May 29, 2024 06:36 PM Consult Order PHARMACY/N HM OUTPT Cons Horseback Riding Instructor's Choice [facility] Jun 10, 2024 11:25 AM Consult Order COMMUNITY CARE-UROLOGY Cons Horseback Riding Instructor[facility] Lab Results: +/- 30 days of the encounter This section includes the Chemistry and Hematology Lab Results on record with [place] for the patient. Radiology Reports and Pathology Reports are provided separately, in subsequent sections. Lab Results This section contains the Chemistry/Hematology Results that were resulted 30 days before or 30 daysafter the date of the Encounter. Date/Time Source Result Type Result - Unit Interpretation Reference Range Comment Jun 04, 2024 10:27 AM [facility] HEMOGLOBIN A1C PANEL Specimen Type: BLOOD [...] May 29, 2024 06:36 PM Reporting [facility] [address] Performing Lab: [facility] [address] HEMOGLOBIN A1C 6.5 H 4.0-5.6 Jun 04, 2024 10:27 AM [facility] TSH Specimen Type: SERUM No comment entered. Ordering Provider: JUAN LUIS CAI F Report Released Date/Time: May 29, 2024 06:36 PM Reporting Lab: [facility] [address] [address] Performing Lab: [facility] [address] [address] TSH 1.78 u[IU]/mL 0.35-5.00 Jun 04, 2024 10:27 AM [facility] MICROALBUMIN CREATININE RATIO PANEL Specimen Type: URINE No comment entered. Ordering Provider: JUAN LUIS CAI F Report Released Date/Time: May 29, 2024 06:36 PM Reporting Lab: [facility] [address] [address] Performing Lab: [facility] [address] MICROALBUMIN/C REATININE RATIO 36.0 mg/g H 0-29.9 MICROALBUMIN,Q UANTITATIVE 2.8 mg/dL RR UNAVAIL CREATININE URINE 77.84 mg/dL Jun 04, 2024 10:27 AM [facility] LIPID PANEL, NON FASTING Specimen Type: SERUM No comment entered. Ordering Provider: JUAN LUIS CAI F Report Released Date/Time: May 29, 2024 06:36 PM Reporting Lab: [facility] [address] [facility] [address] Performing Lab: [address] [address] CHOLESTEROL 151 mg/dL TRIGLYCERIDE 146 mg/dL 0-150 LDL calculated 73 mg/dL 0-129 CHOL/HDL 3.1 HDL CHOLESTEROL 49 mg/dL 40-60 Jun 04, 2024 10:27 AM [facility] LIVER FUNCTION Specimen Type: SERUM No comment entered. Ordering Provider: JUAN LUIS CAI F Report Released Date/Time: May 29, 2024 06:36 PM Reporting Lab: [address] [address] Performing Lab: [address] [address] PROTEIN,TOTAL 5.5 g/dL L 6.0-8.3 ALBUMIN 3.7 g/dL 3.5-5.0 ALKALINE PHOSPHATASE 78 U/L 40-150 AST 20 U/L 5-34 ALT 19 U/L BILIRUBIN, TOTAL 1.3 mg/dL H 0.2-1.2 BILIRUBIN, DIRECT 0.5 mg/dL 0-0.5 Jun 04, 2024 10:27 AM [facility] BASIC METABOLIC PANEL (non-fasting) Specimen Type: SERUM No comment entered. Ordering Provider: JUAN LUIS CAI F Report Released Date/Time: May 29, 2024 06:36 PM Reporting Lab: [address] [address] Performing Lab: [address] [address] UREA NITROGEN 19 mg/dL 7-25 GLUCOSE 187 mg/dL H 65-100 SODIUM 140 mmol/L 135-145 POTASSIUM 3.8 mmol/L 3.5-5.0 CHLORIDE 103 mmol/L 100-110 CO2 25 meq/L 20-30 CREATININE, Serum 0.97 mg/dL 0.50-1.40 eGFR(CKD-EPI 2020) 76 mL/min >60 May 08, 2024 11:[address] [facility] TESTOSTERONE, TOTAL (WHV) Specimen Type: SERUM No comment entered. Ordering Provider: JUAN LUIS CAI F Report Released Date/Time: Aug 11, 2023 11:52 AM Reporting Lab: [facility] [address] [facility] [address] Performing Lab: [facility] [address] TESTOSTERONE, TOTAL (V) 44.33 ng/dL L 220.00-892 .00 May 08, 2024 11:[address] [facility] LIVER FUNCTION Specimen Type: SERUM No comment entered. Ordering Provider: JUAN LUIS CAI F Report Released Date/Time: Aug 11, 2023 11:52 AM Reporting Lab: [facility] [address] [address] Performing Lab: [address] [address] PROTEIN,TOTAL 5.5 g/dL L 6.0-8.3 ALBUMIN 3.6 g/dL 3.5-5.0 ALKALINE PHOSPHATASE 71 U/L 40-150 AST 20 U/L 5-34 ALT 24 U/L BILIRUBIN, TOTAL 1.1 mg/dL 0.2-1.2 May 08, 2024 11:24 AM [facility] LIPID PANEL FASTING Specimen Type: SERUM No comment entered. Ordering Provider: JUAN LUIS CAI F Report Released Date/Time: Aug 11, 2023 11:52 AM Reporting Lab: [facility] [address] [address] Performing Lab: [address] [address] CHOLESTEROL 142 mg/dL TRIGLYCERIDE 179 mg/dL H 0-150 LDL calculated 64 mg/dL 0-129 CHOL/HDL 3.4 HDL CHOLESTEROL 42 mg/dL 40-60 May 08, 2024 11:24 AM [facility] CBC Specimen Type: BLOOD No comment entered. Ordering Provider: JUAN LUIS CAI F Report Released Date/Time: Aug 11, 2023 11:52 AM Reporting Lab: [facility] [address] [facility] [address] Performing Lab: [address] [address] WBC 4.08 10*3/uL L 4.50-11.00 RBC 4.53 10*6/uL 4.23-5.66 HGB 13.1 g/dL 12.8-17 HCT 39.9 39.2-50.4 MCV 88.1 fL 82-99 MCHC 32.8 g/dL 30.8-35.1 PLT 130 10*3/uL L 140-360 RDW-CV 14.5 12.0-16.0 MCH 28.9 pg 26.2-32.6 May 08, 2024 11:24 AM [facility] BASIC METABOLIC PANEL (fasting) Specimen Type: SERUM No comment entered. Ordering Provider: JUAN LUIS CAI F Report Released Date/Time: Aug 11, 2023 11:52 AM Reporting Lab: [address] [address] Performing Lab: [address] [address] UREA NITROGEN 19 mg/dL 7-25 GLUCOSE 216 mg/dL H 65-100 SODIUM 142 mmol/L 135-145 POTASSIUM 3.5 mmol/L 3.5-5.0 CHLORIDE 107 mmol/L 100-110 CO2 25 meq/L 20-30 CREATININE, Serum 0.84 mg/dL 0.50-1.40 eGFR(CKD-EPI 2020) 85 mL/min >60 May 08, 2024 11:24 AM [facility] CBC AND DIFF (AUTO) Specimen Type: BLOOD No comment entered. Ordering Provider: JUAN LUIS CAI F Report Released Date/Time: Aug 11, 2023 11:52 AM Reporting Lab: [address] [address] Performing Lab: [facility] [address] [facility] [address] WBC 4.08 10*3/uL L 4.50-11.00 RBC 4.53 [...] 10*3/uL 0.00-0.00 May 08, 2024 11:23 AM [facility] OSMOLALITY (SERUM) Specimen Type: SERUM No comment entered. Ordering Provider: ALLIE CUELLO Report Released Date/Time: Nov 27, 2023 07:39 PM Reporting Lab: [facility] [address] [facility] [address] Performing Lab: [facility] [address] [facility] [address] OSMOLALITY (SERUM) 299 280-300 May 08, 2024 11:23 AM [facility] CALCIUM Specimen Type: SERUM Comment: *GLUCOSE Not Performed: May 08, 2024@11:36 by [id number] *PRODUCE WRAPPER Reason: Duplicate *UREA NITROGEN Not Performed: May 08, 2024@11:36 by [id number] *PRODUCE WRAPPER Reason: Duplicate *CREATININE (eGFR 2020) Not Performed: May 08, 2024@11:36 by [id number] *PRODUCE WRAPPER Reason: Duplicate *SODIUM Not Performed: May 08, 2024@11:36 by [id number] *PRODUCE WRAPPER Reason: Duplicate *CHLORIDE Not Performed: May 08, 2024@11:36 by [id number] *PRODUCE WRAPPER Reason: Duplicate *CO2 Not Performed: May 08, 2024@11:36 by [id number] *PRODUCE WRAPPER Reason: Duplicate *POTASSIUM Not Performed: May 08, 2024@11:36 by [id number] *PRODUCE WRAPPER Reason: Duplicate Ordering Provider: ALLIE CUELLO Report Released Date/Time: Nov 27, 2023 07:39 PM Reporting Lab: [facility] [address] [facility] [address] Performing Lab: [address] [address] CALCIUM 8.5 mg/dL 8.5-10.2 May 08, 2024 11:23 AM [facility] VITAMIN D (25-OH) Specimen Type: SERUM No comment entered. Ordering Provider: ALLIE CUELLO Report Released Date/Time: Nov 27, 2023 07:39 PM Reporting Lab: [facility] [address] [facility] [address] Performing Lab: [address] [address] VITAMIN D (25-OH) 46 ng/mL 20-50 Social History: Smoking Status (Most current) and Tobacco Use (All prior to encounter date) This section includes the most current, and the historical, smoking and tobacco- related health factors from the [place] facility where the Encounter took place. Current Smoking Status This section includes the most current smoking, or tobacco-related health factor, from the [place] facility where the Encounter took place. Date/Time Current Smoking Status Comment Facil nathaniel Jun 05, 2023 11:00 AM VA-TOBACCO FORMER USER [facility] Tobacco Use History This section includes a history of the smoking, or tobacco-related health factors, that were collected on or before the date of the Encounter. The data comes from the [place] facility where the Encounter took place. Date/Time Smoking Status/Tobac co Use Comment Facility Jun 05, 2023 11:00 AM VA-TOBACCO QUIT 15 YRS OR MORE [facility] [place] [facility] Jun 06, 2022 01:00 PM VA-TOBACCO FORMER USER [facility] [place] [facility] Jun 06, 2022 01:00 PM VA-TOBACCO QUIT 15 YRS OR MORE [facility] [place] [facility] Jun 30, 2021 02:37 PM VA-TOBACCO FORMER USER [facility] [place] [facility] Jun 30, 2021 02:37 PM VA-TOBACCO QUIT 5 TO < 15 YRS [facility] [place] [facility] May 22, 2020 03:30 PM VA-TOBACCO NEVER USED [place] [facility] [place] [facility] May 08, 2018 02:03 PM VA-TOBACCO FORMER USER [facility] [place] [facility] May 08, 2018 02:03 PM VA-TOBACCO QUIT 15 YRS OR MORE [facility] [place] [facility] November 10, 2017 02:33 PM QUIT TOBACCO USE > 7 YEARS AGO [facility] [place] [facility] October 21, 2016 01:55 PM QUIT TOBACCO USE > 7 YEARS AGO [facility] [place] [facility] Sep 18, 2015 11:24 AM QUIT TOBACCO USE > 7 YEARS AGO stopped 50 years ago [facility] [place] [facility] May 19, 2005 08:01 AM HISTORY OF SMOKING [facility] [place] [facility] May 31, 2004 01:02 PM HISTORY OF SMOKING [facility] [place] [facility] Jun 04, 2003 07:57 AM HISTORY OF SMOKING [facility] [place] [facility] Jun 03, 2002 01:11 PM HISTORY OF SMOKING [facility] [place] [facility] Jun 03, 2002 01:11 PM QUIT TOBACCO USE > 7 YEARS AGO [facility] [place] [facility] Advance Directives: All historical and current Section Date Range: From patient's date of to the date document was created. This section includes ALL of a patient's completed or amended [place] Advance and Rescinded Directives. The entries below indicate that a directive exists for the patient, but an actual copy is not included with this document. The data comes from all [place] facilities. Date Advance Directives Provider Source Jun 02, 2023 ADVANCE DIRECTIVE MARYANNETRICEJENNIFER [place] CNT [facility] Encounter Notes: All associated encounter notes This section contains the clinical notes associated to the Encounter. Date/Time Encounter Note(s) Provider Source Jun 05, 2024 12:28 PM PSYCHIATRY NOTE: LOCAL TITLE: PSYCHIATRY NOTE STANDARD TITLE: PSYCHIATRY NOTE DATE OF NOTE: JUN 05, 2024@12:28 ENTRY DATE: JUN 05, 2024@12:28:22 AUTHOR: RADHA HARPER EXP COSIGNER: URGENCY: STATUS: COMPLETED Length of time: 25-30 minutes Clinical services provided by Radha Harper MD, staff psychiatrist. Clinical services are being provided via [facility] from the [facility] ([place]) to the [facility] through the [facility] Clinical Resource Hub. ID & Diagnoses: 84-year-old male with major depressive disorder (0% SC). , father of 4 adult children. Lives alone with a cat and a lot of fish in a large fish tank. Served in [email or web address] for 6 yrs. 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 History of Present Illness: Even after citalopram was reduced from 10 to 5 mg/day for depression, he has been doing well. He denies clinical depression (0/10, 10 being worst). Thus, he has agreed to discontinue citalopram at this time. 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 Denies active stressors or concerns. He has recovered from recent rib crack (no surgery needed) after he fell down. 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 He sees his medical doctors regularly for medical issues (including back pain and retina issue). He has several friends. He has a good relationship with his girlfriend he recently met at a buddhism, who is about 15 yrs younger than him. She is now in [place]. He still visit his '[place] almost daily. He talks and sees his children, grandchildren, and great-grandchildren very often (usually once a week). He enjoys making wood toys, watching movies, doing yardwork and lawn maintenance, and meeting with buddhism people. Denies alcohol, drug, or gambling problems. No acute psychiatric issues noted. MENTAL STATUS EXAM: Appearance/Behavior: pleasant Speech: normal rate/rhythm Mood: good Affect: mood congruent Perceptual disturbance: no visual/auditory hallucinations Thought process: goal directed Thought content: no delusions Suicidal/Violent thoughts: none Cognition/Memory: grossly intact Insight/Judgment: good Risk assessment: [place] is determined to have LOW ACUTE RISK [...] ] no [ x ] yes Therapeutic [place] [ ] no [ x ] yes [...] MOUTH TWICE DAILY Indication: FOR OSTEOPOROSIS 3) GLUCOSE 4GM CHEW TAB CHEW ONE TABLET BY MOUTH EVERY DAY ACTIVE NEEDED Indication: FOR LOW BLOOD SUGAR 4) HYDROXYCHLOROQUINE SULFATE 200MG TAB TAKE TWO TABLETS BY ACTIVE MOUTH ONCE DAILY 5 DAYS A WEEK, AND 1 TABLET DAILY 2 DAYS A WEEK. 5) INSULIN,ASPART,HUMAN 100 UNIT/ML INJ INJECT 80 UNITS ACTIVE SUBCUTANEOUSLY EVERY DAY DIRECTED FOR USE WITH CONTINUOUS SUBCUTANEOUS INSULIN INFUSION DEVICE Indication: FOR DIABETES 6) KETOCONAZOLE 2% CREAM APPLY A THIN LAYER TOPICALLY TWICE ACTIVE DAILY APPLY TO AFFECTED AREAS ON FACE TWICE DAILY FOR 4 WEEKS, THEN NEEDED Indication: RASH 7) KETOCONAZOLE 2% SHAMPOO SHAMPOO SMALL AMOUNT TOPICALLY TWICE ACTIVE A WEEK NEEDED APPLY FOR 8 WEEKS, THEN NEEDED Indication: SCALP RASH 8) LEFLUNOMIDE 20MG TAB TAKE ONE TABLET BY MOUTH ONCE DAILY ACTIVE 9) MULTIVIT/OPHTH AREDS2/LUTE/ZEAX CAP/TAB TAKE 1 CAPSULE BY ACTIVE MOUTH TWICE DAILY IN THE MORNING AND EVENING, WITH FOOD 10) PREDNISONE 2.5MG TAB TAKE THREE TABLETS BY MOUTH ONCE DAILY ACTIVE 11) TAMSULOSIN HCL 0.4MG CAP TAKE TWO CAPSULES BY MOUTH AT ACTIVE (S) BEDTIME 12) TOCILIZUMAB 162MG/0.9ML INJ SYR 0.9ML INJECT 162MG ACTIVE (S) SUBCUTANEOUSLY EVERY 2 WEEKS Active Non-VA Medications [...] TAB 5MG BY MOUTH TWICE DAILY ACTIVE 22 Total Medications MEDICATION RECONCILIATION was done as followed: All the medications patients have received from the [facility] recently or administered in clinic including VA prescriptions (that have recently or been discontinued), Non-VA Medications have been reviewed in [facility] medication records. PSYCHIATRIC MEDICATION MONITORING: No psych medication Active Problem Elevated PSA R97.20 10/11/2023 ALLIE CUELLO Aortic Valve Disorder (SCT 9857640) 10/09/2023 TOÑO CAI Cerebrovascular disease I67.9 04/26/2023 [...] DE LA CRUZ MD Hypertension (SNOMED CT 98573567) I 04/26/2023 ALLIE CUELLO Spinal Stenosis * (ICD-9-CM 724.00) 02/05/2010 VESTA DE LA CRUZ MD Hyperlipidemia (SNOMED CT 52329567) 04/26/2023 ALLIE CUELLO Osteoarthritis * (ICD-9-CM 715.90) 07/02/2008 PAUL ACOSTA Lower Back Pain * (ICD-9-CM 724.2) 07/02/2008 PAUL ACOSTA Vertigo 780.4 11/28/2007 PAUL ACOSTA Diabetes mellitus type 2 (SNOMED CT 09/17/2022 ALLIE CUELLO Gastroesophageal Reflux Disorder 53 11/28/2007 PAUL ACOSTA ASSESSMENT: -Major depressive disorder: stable PLAN: -Discontinue citalopram (as above) -Monitor his mental health without antidepressant -Follow-up: Return to clinic with keno writer / runner on 10/02 or earlier as needed /thomas/ Radah Harper MD PSYCHIATRIST, PSYCHIATRY Signed: 06/05/2024 13:45 RADHA HARPER [facility]
[2024-06-14 13:25] LABS: MANUAL DIFF FLAG NO
[2024-06-14 13:43] LABS: Basophils Absolute Auto 0.1 X10*3/uL (0.0-0.2); Basophils Percent Auto 0.7 % (0-2); Eosinophils Absolute Auto 0.1 X10*3/uL (0.0-0.4); Eosinophils Percent Auto 0.9 % (0-4); Hematocrit 41.8 % (42.0-52.0); Hemoglobin 13.7 g/dl (14.0-18.0); Imm Gran Abs Auto 0.02 X10*3/uL (0.00-0.03); Imm Gran Pct Auto 0.3 % (0.0-0.4); Lymphocytes Absolute Auto 1.2 X10*3/uL (1.2-4.9); Lymphocytes Percent Auto 16.9 % (20-40); Mean Corpuscular HGB Conc 32.8 g/dl (31.0-36.0); Mean Corpuscular Hemoglobin 30.2 pg (27.0-33.0); Mean Corpuscular Volume 92.1 fL (80.0-98.0); Mean Platelet Volume 9.4 fL (9.4-12.4); Monocytes Absolute Auto 1.4 X10*3/uL (0.1-1.2); Monocytes Percent Auto 19.8 % (2-11); Neutrophils Absolute Auto 4.3 x10*3/uL (2.0-8.3); Neutrophils Percent Auto 61.4 % (45-73); Platelet Count 132 X10*3/uL (160-400); Red Blood Count 4.54 X10*6/uL (4.60-5.80); Red Cell Distribution Width 14.7 % (11.0-16.0)
[2024-06-14 14:12] LABS: Alanine Aminotransferase 18 U/L (0-40); Alkaline Phosphatase 71 U/L (39-117); Anion Gap 13 (12-20); Aspartate Amino Transferase 24 U/L (5-37); Bilirubin Total 1.5 mg/dL (0.0-1.0); Blood Urea Nitrogen 42 mg/dL (9-16); C Reactive Protein < 0.04 mg/dL (< or = 0.50); Calcium 9.1 mg/dL (8.4-10.2); Carbon Dioxide 26 mmol/L (22-29); Chloride 106 mmol/L (96-108); Estimated Glomerular Filt Rate > 60; Glucose Random 108 mg/dL (60-115); Potassium 3.7 mmol/L (3.3-5.1); Sodium 141 mmol/L (135-145); Total Protein 5.9 g/dL (6.5-8.0)
[2024-06-14 14:21] LABS: Erythrocyte Sedimentation Rate 1 MM/HR (0-15)
== END 2024-06-14 13:09 | disposition home or self-care (01) ==
LOC: HO.LAB 13:08
PROVIDERS: Visit Provider Student in an Organized Health Care Education/Training Program
DX: M06.09 Rheumatoid arthritis without rheumatoid factor, multiple sites (principal)
CPT/HCPCS: 36415; 80053; 85025; 85652; 86140

== ENCOUNTER 2024-07-05 11:43 | Emergency (ER) | payer OTHER, SELFPAY ==
--- NOTE | 2024-07-05 | ECG_ITS ---
Test Reason : ABD PAIN Blood Pressure : */* mmHG Vent. Rate : 69 BPM Atrial Rate : 69 BPM P-R Int : 170 ms QRS Dur : 108 ms QT Int : 444 ms P-R-T Axes : 34 -38 269 degrees QTcB Int : 475 ms Normal sinus rhythm Left axis deviation Minimal voltage criteria for LVH, may be normal variant ( R in aVL ) Septal infarct , age undetermined Abnormal ECG When compared with ECG of 11-Jun-2023 13:29, Septal infarct is now Present ST now depressed in Lateral leads T wave inversion now evident in Lateral leads Referred By: Generic ED Physician Electronically Signed By: TESSA SCHNEIDER MD
--- NOTE | ~2024-07-05 | CT_ITS ---
EXAMINATION: CT ANGIOGRAM ABDOMEN AND PELVIS CLINICAL INFORMATION: Severe upper abdominal pain, history of mesenteric artery stenosis. COMPARISON: No prior angiography. Correlation made with CT abdomen and pelvis 08/05/2019. TECHNIQUE: Multiple axial CT angiographic images were obtained through the abdomen and pelvis in the arterial phase following the administration of 100 mL of Omnipaque 350 intravenous contrast. Images were reviewed and reformats performed on a dedicated 3-D workstation. This CT examination was performed using dose optimization techniques as appropriate, variously including the following: *Automated exposure control *Adjustment of mA and/or kV according to patient size (this includes techniques or standardized protocols for targeted exams where dose is matched to indication/reason for exam; i.e. extremities or head) *Use of iterative reconstruction technique FINDINGS: IMAGED LUNG BASES: -There is mild diffuse bronchiectasis without bronchial wall thickening. There are mild changes of subpleural fibrosis in both lung bases, most significant involving the costophrenic sulci bilaterally. -There are no effusions. There are no suspicious pulmonary nodules identified. -Heart size is normal. Calcified mitral annulus. 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 No pericardial effusion. LIVER: -Normal, with no suspicious lesion identified. SPLEEN: Normal appearance, with small anterior splenule suspected. GALLBLADDER: Surgically absent. BILIARY TREE: Minimal intrahepatic and mild extrahepatic biliary dilatation is present, similar to the prior examination. The common duct measures approximately 14 mm in diameter, stable finding. No obstructing abnormality is evident. PANCREAS AND ADRENALS: -There is severe pancreatic atrophy. No inflammation or suspicious lesion. -Normal adrenal glands. KIDNEYS AND RETROPERITONEUM: -Normal appearance. No calculi, or hydronephrosis. Ureters are normal. LYMPH NODES: -No pathologic lymphadenopathy is present. STOMACH, SMALL AND LARGE BOWEL, APPENDIX: -There is a focally inflamed and thick walled loop of small bowel in the central abdomen, just above the umbilical level, with mild inflammation in the abutting mesentery, and a focal region of extraluminal gas suggesting perforation, likely contained within the mesenteric leaflets. Findings suggest ischemic bowel. (Series 8, image 27, series 5, image 40). -There is no bowel obstruction. -The remainder of the small bowel appears normal without wall thickening or inflammation. -There is no evidence of appendicitis. -The colon is normal in caliber and course, with mild retained fecal residue. No wall thickening or inflammation. No significant diverticular disease. -No rectal abnormality. OMENTUM, PERITONEUM, MESENTERY: -No free intraperitoneal air. -Focal mesenteric inflammation abutting the loop of abnormal central small bowel. -Contained perforation suspected as described above. ABDOMINAL WALL: -There is a right fat-containing lumbar hernia, with hernia sac measuring 8.0 cm in diameter. This contains a portion of perirenal fat. No incarceration seen. -No significant additional hernia. 9-postop changes of the lumbar spine. PELVIC: -Normal sized prostate and normal seminal vesicles. There are calcifications in the corpora cavernosum. VASCULAR: -There is good opacification of the arterial vasculature. The aorta is heavily calcified, and mildly ectatic in the infrarenal region measuring maximal diameter of 1.9 cm. There is no aneurysm or dissection. -There is a mild to moderate stenosis at the ostium of the celiac artery. -There is a moderate to severe stenosis at the origin of the SMA due to predominantly calcified plaque. The more distal branches of the SMA opacify normally without thrombus seen. -The IZZY is patent and enhances normally. -There is a moderate stenosis at the ostium of the left renal artery. -There is a mild to moderate stenosis of the ostium of the right renal artery. -Normal enhancement and caliber of the iliac and hypogastric arteries. OSSEOUS STRUCTURES: -Extensive post lumbar fusion with hardware, L2-S1 suboptimally evaluated allowing for technique. There are extensive spinal degenerative changes. -No suspicious lytic or blastic bone lesions. There is a chronic compression deformity of T9 and the superior endplate of T8. CT/CT angio abdomen pelvis IMPRESSION: 1. There is a loop of thickened central small bowel which is inflamed, demonstrates wall thickening, and a focal contained extraluminal collection of gas (likely contained within the mesenteric leaflets) suggesting perforation. Findings are highly suspicious for perforated ischemic small bowel. See above for details. 2. No additional acute findings in the abdomen or pelvis. 3. Extensive calcification of the aorta with mild ectasia but no aneurysm. No dissection. 4. 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 Moderate ostial stenosis of the celiac axis. 5. Moderate ostial stenoses of the bilateral renal arteries. 6. Fibrotic changes in the lung bases. 7. Additional ancillary findings as discussed in the body of the report. Findings were discussed with ED provider Petrona Vuong NP at 3:29 PM, 07/05/2024 Electronically signed by: Wolfgang Garza MD 07/05/2024 03:34 PM [facility]
[2024-07-05 11:56] VITALS: BP 120/90; PULSE 90; O2SAT 99
[2024-07-05 12:02] VITALS: BP 131/55; PULSE 68; RESP 18; TEMP 36.6; O2SAT 100; BMI 23.5
--- NOTE | 2024-07-05 12:45 | ED.ABDPAIN ---
HPI - Abdominal Pain General Chief Complaint: Abdominal Pain Stated Complaint: ABD PAIN Time Seen by Provider: 07/05/24 12:44 Source: patient and EMS Mode of arrival: EMS Limitations: no limitations History of Present Illness ED Provider: Petrona Vuong NP HPI narrative: Patient is an 84-year-old male with past medical history of left carotid artery stenosis s/p endarterectomy, aortic stenosis, CAD, rheumatoid arthritis, polymyalgia rheumatica, chronic microscopic hematuria, vertigo, GERD, spinal stenosis, carpal tunnel syndrome, diabetes with use of insulin pump, hypercholesterolemia, hypertension, prior cholecystectomy who presents emergency department for evaluation of abdominal pain that has been intermittent over the past few months that after having breakfast this morning became significantly worse, in fact the worse pain that he has felt in comparison to any previously. He states he was at the [place] office today to meet with a surgeon in regards to what appears to be an inguinal hernia, but on evaluation he was having significant tenderness to the abdomen so he was referred to the emergency department for evaluation. He states he has known about the hernia for some time. His pain is rather localized diffusely across the upper abdomen and is exquisitely tender even with light palpation and has associated intermittent nausea. At this time he reports the pain is minimal 1/10, declines interest in analgesics at this time. Denies fevers, chills, chest pain, vomiting, hematemesis, diarrhea, constipation, hematochezia, melena, dysuria, urinary frequency, urinary urgency, urinary hesitancy, hematuria. denies testicular pain/urethral discharge or scrotal swelling. Related Data Home Medications ?Medication ?Instructions ?Recorded ?Confirmed Novolog U-100 Insulin aspart 0 units subcut (via wearable 06/01/20 05/21/24 injectr) DAILY tamsulosin 0.4 mg capsule 0.4 mg PO BEDTIME 06/24/22 05/21/24 vitamins A,C,E-jypx-zjacgg 4,296 1 cap PO BID 06/24/22 05/21/24 mcg-226 mg-90 mg capsule (PreserVision AREDS) acetaminophen 650 mg 650 mg PO Q8H PRN Pain 09/06/22 05/21/24 tablet,extended release (Tylenol 8 Hour) citalopram 20 mg tablet 20 mg PO DAILY 09/06/22 05/21/24 cyclobenzaprine 10 mg tablet 10 mg PO DAILY 09/06/22 05/21/24 cholecalciferol (vitamin D3) 50 50 mcg PO BID 11/21/22 05/21/24 mcg (2,000 unit) capsule calcium citrate 1,600 mg PO BID 12/24/22 05/21/24 testosterone cypionate 200 mg/mL 60 mg IM TU 06/02/23 05/21/24 intramuscular oil atorvastatin 40 mg tablet mg PO 07/11/23 05/21/24 furosemide 20 mg tablet mg PO 08/22/23 05/21/24 Previous Rx's ?Medication ?Instructions ?Recorded aspirin 81 mg tablet,delayed 81 mg PO DAILY #90 tabs 02/10/23 release oxycodone 5 mg tablet 5 mg PO Q6H PRN severe pain (scale 02/18/24 score 7-10) #16 tabs omeprazole 20 mg capsule,delayed 20 mg PO BID #180 caps 04/08/24 release Actemra ACTPen 162 mg/0.9 mL 162 mg (0.9 mL) subcut Q2W #1.8 mL 04/11/24 subcutaneous pen injector (tocilizumab) prednisone 2.5 mg tablet 7.5 mg (3 x 2.5 mg) PO DAILY #90 04/29/24 tabs leflunomide 20 mg tablet 20 mg PO DAILY #90 tabs 04/30/24 hydroxychloroquine 200 mg tablet See Rx Instructions PO .COMPLEX 05/21/24 #144 tabs magnesium citrate 125 mg capsule 125 mg PO DAILY #30 caps 05/30/24 pilocarpine HCl 5 mg tablet 5 mg PO BID #180 tabs 07/01/24 gabapentin 600 mg tablet 600 mg PO TID #270 tabs 07/02/24 docusate sodium 100 mg capsule 100 mg PO BID #60 caps 07/04/24 Allergies Allergy/AdvReac Type Severity Reaction Status Date / Time Penicillins Allergy Severe ITCHING-SEV Verified 07/05/24 12:07 ERE piperacillin [From Zosyn] Allergy Mild JAUNDICE Verified 07/05/24 12:07 tazobactam [From Zosyn] Allergy Mild JAUNDICE Verified 07/05/24 12:07 Review of Systems Review of Systems Yes all other systems are reviewed and are negative PMFSH Past Medical History Attestation statement: The following information was validated with the patient. Source: old records reviewed Medical History Symptomatic stenosis of left carotid artery Aortic stenosis Rheumatoid arthritis Carpal tunnel syndrome Former smoker Insulin pump in place Diabetes Elevated cholesterol CAD (coronary artery disease) HTN (hypertension) Surgical History History of left-sided carotid endarterectomy (02/15/23) Hx of carpal tunnel repair Hx of cardiac catheterization History of shoulder surgery History of cholecystectomy History of hand surgery Hx of hemorrhoidectomy Hx of lumbar discectomy H/O colonoscopy Family History Family History Father Heart attack Heart disease Mother Pacemaker Cataracts, bilateral Sister Heart problem Heart valve replaced Arthritis Brother Heart attack Brother Rectal cancer Sister History of modified radical mastectomy of right breast Social History Social History Household Members: None Housing: House Are you a primary janitor caretaker to a significant other at home: No Do you presently have visiting nurse or other home services: No Alcohol intake: never Patient Tobacco Use Status: Former Tobacco user Tobacco use type: Cigarette Years Smoked: 5 YEARS Smoked in Last 30 Days: No Use of substances other than those prescribed or required for medical reasons: No Advance Directives: Yes Advance Directives Information Provided: Yes Advance Directives on File: No Advance Directives Date on File: 02/07/23 service: No Current occupational status: employed Current occupation: [employer], rt handed Physical Exam ED Vital Signs: Vital Signs - 24 hr 07/05/24 12:02 07/05/24 14:45 07/05/24 16:24 Temperature 98 F 97.5 F Pulse Rate 68 80 84 Respiratory Rate 18 13 16 Blood Pressure 131/55 L 114/53 L 126/49 L Pulse Oximetry 100 98 97 Oxygen Delivery Method Room Air Room Air BMI result Body Mass Index 23.5 Appearance: Alert.?Oriented to person, place and time. No acute distress.?Normal affect.?? Neck: Normal inspection.? Neck supple.?? CVS: Heart sounds normal. Normal heart rate and rhythm.? Pulses normal.?? Respiratory: No respiratory distress.? Lung sounds clear to auscultation bilaterally?? Abdomen: Semifirm diffusely across the upper abdomen with exquisite tenderness even on light palpation. No tenderness in the lower quadrants. No appreciable hernia on examination. No rebound tenderness at McBurney's point. Negative psoas sign. Negative Rovsing sign. No CVAT. Normoactive bowel sounds. No pulsatile mass.?? Skin: Skin warm and dry.? Normal skin color.? Extremities: No lower extremity edema.? Neuro: Moves all extremities spontaneously. Sensation intact bilaterally. Ambulates with normal steady gait. Course Reevaluation(s) Reevaluation #1: CBC is without leukocytosis, has a normocytic anemia with H and H 10.1/30 which is decreased when compared to prior on 06/14/2024 of 13.7/41.8, progressive thrombocytopenia with platelet count 82,000 compared to 132,000 06/14/24. No significant electrolyte derangement. No RONAK. No lactic acidosis. LFTs overall unremarkable. High sensitive troponin within normal range at 19.2, and EKG revealing a normal sinus rhythm with ventricular rate of 69, QTC 475, no ST elevation, ST depression V5-V6. Given his degree of pain and tenderness in the abdomen I think it is less likely that this is a STEMI equivalent however will obtain delta troponin for re-evaluation. Reevaluation #2: Received call from Radiology, Dr. Garza; CT AP revealing a loop of central small bowel that is inflamed it appears to have a contained perforation with gas within the mesentery but no free air, concern for ischemic bowel. Consulting with General surgery Dr. Matthews via tiger message, he is currently in the OR with the patient but states he will come to see the patient as soon as he is finished Time: 15:34 Reevaluation #3: Received call from Dr. Matthews who advised that the anesthesia team does not feel that it would be appropriate for patient to undergo surgery here due to his history of aortic stenosis. On review of his medical record he was last seen by Dr. Fishman in January of 2023 he was found to have moderate aortic valve stenosis and possibly moderate mitral stenosis. Most recent echocardiogram in January of 2023. I will consult with [facility] for transfer Time: 16:06 Additional Reevaluation(s): I spoke with [facility] Surgical team Dr. Valderrama, who advises that patient underwent TAVR in September of 2023 which exceeds our medical records here, therefore the aortic stenosis should not be of great concern for anesthesiology. I am not certain which anesthesiologist Dr. Matthews spoke with, but [facility] request that we speak to them directly to have this conversation as they may not be aware of his TAVR. I have sent a message to Dr. Matthews for further clarification. My attending Dr. Palomares is aware as I do have concern for delayed care in the setting of an acute surgical abdomen. 16:34: Dr. Matthews has made me aware that he spoke with Anesthesiology Dr. Hardy, I reached out to her personally and I am awaiting a call back, Dr. Matthews is concerned that there is no room in the ICU for the patient postop. 15:00 - Dr. Hardy states that she would be willing to have him under anesthesia service here given that he has had a TAVR. I spoke again with Dr. Matthews, he expresses concern that it would be highly probable patient will require a ventilator initially postop and there are no ICU beds available therefore he would not have disposition post surgery as there is no current beds in the ICU available. I have no definitive answer from nursing staff/ warehouse person as to whether there will be any ICU bed availability postoperatively for this patient. Again I have concern for decompensation and delay of care given acute surgical abdomen. Patient has been accepted for ED to ED transfer with the accepting physician Dr. Valderrama at [facility]. Arranging for ambulance transfer. 17:45. Awaiting ambulance transfer for patient. I have spoke with Dr. Matthews directly who informs me that given the patient's age, comorbidities, the patient is too high risk and requires an escalated level of care postoperatively that is too high-risk for this hospital for his surgical procedure to be performed here. Medical Decision Making Medical Decision Making MDM Narrative: Patient is an 84-year-old male with past medical history of left carotid artery stenosis s/p endarterectomy, aortic stenosis, CAD, rheumatoid arthritis, polymyalgia rheumatica, chronic microscopic hematuria, vertigo, GERD, spinal stenosis, carpal tunnel syndrome, diabetes with use of insulin pump, hypercholesterolemia, hypertension, prior cholecystectomy who presents emergency department for evaluation of abdominal pain as per HPI, on evaluation he has exquisite tenderness even on light palpation diffusely across the upper abdomen semifirm as per PE portion of this note. 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 At rest he does not appear to be in a great deal of pain was rather significant pain with any palpation of the abdomen. Myself as well as my attending Dr. Palomares has evaluated the patient as well and agrees with the care; Will obtain CBC to evaluate for leukocytosis/ anemia, CMP and lipase to evaluate for abnormal electrolytes /abnormal renal function/ abnormal hepatic/biliary function, CT angio of the abdomen and pelvis, and Urinalysis. Patient endorses a history of cholecystectomy, however there may be a possibility of CBD stone. There is no appreciable hernia on examination, overt given presence of known hernia obstruction/fat necrosis/strangulation may be possible. Declines analgesic at this time. Differential Diagnosis Differential Diagnoses: The differential diagnosis associated with the presentation includes (See narrative above) Admission/Observation Consideration of admission/observation: Escalation of care including admission/observation considered (See narrative above ) Lab Data MDM Lab Attestation statement: I reviewed the patient's lab results. 07/05/24 13:35 07/05/24 13:35 Labs: Lab Results 07/05/24 07/05/24 Range/Units 13:35 16:07 WBC 5.4 (4.8-10.8) X10*3/uL RBC 3.21 L D (4.60-5.80) X10*6/uL Hgb 10.1 L D (14.0-18.0) g/dl Hct 30.0 L D (42.0-52.0) % MCV 93.5 (80.0-98.0) fL MCH 31.5 (27.0-33.0) pg MCHC 33.7 (31.0-36.0) g/dl RDW 14.2 (11.0-16.0) % Plt Count 82 L D (160-400) X10*3/uL MPV 9.2 L (9.4-12.4) fL Immature Gran % (Auto) 0.6 H (0.0-0.4) % Neut % (Auto) 78.5 H (45-73) % Lymph % (Auto) 12.5 L (20-40) % [place] % (Auto) 7.4 (2-11) % Eos % (Auto) 0.6 (0-4) % Baso % (Auto) 0.4 (0-2) % Lymph # (Auto) 0.7 L (1.2-4.9) X10*3/uL [place] # (Auto) 0.4 (0.1-1.2) X10*3/uL Eos # (Auto) 0.0 (0.0-0.4) X10*3/uL Baso # (Auto) 0.0 (0.0-0.2) X10*3/uL Abs Immat Gran (auto) 0.03 (0.00-0.03) X10*3/uL Absolute Neuts (auto) 4.2 (2.0-8.3) x10*3/uL Absolute Nucleated RBC 0.000 (0.0-0.012) X10*3/uL Nucleated RBC % (auto) 0.0 (0.0-0.2) /100WBC PT 12.8 H (10.9-12.4) SEC INR 1.1 (0.9-1.1) Sodium 145 (135-145) mmol/L Potassium 3.8 (3.3-5.1) mmol/L Chloride 111 H (96-108) mmol/L Carbon Dioxide 30 H (22-29) mmol/L Anion Gap 8 L (12-20) BUN 23 H (9-16) mg/dL Creatinine 0.75 (0.5-1.4) mg/dL Estim Creat Clear Calc 73.0 Estimated GFR > 60 Random Glucose 138 H (60-115) mg/dL Lactic Acid 1.9 (0.5-2.0) mmol/L Calcium 7.9 L D (8.4-10.2) mg/dL Magnesium 1.8 (1.6-2.6) mg/dL Total Bilirubin 1.1 H (0.0-1.0) mg/dL AST 31 (5-37) U/L ALT 18 (0-40) U/L Alkaline Phosphatase 64 (39-117) U/L Troponin I High Sens 19.2 D 23.6 (<3.5-35.0) ng/L Total Protein 4.4 L (6.5-8.0) g/dL Albumin 2.9 L (3.5-5.0) g/dL Lipase 4 L (8-78) U/L Urine Color Yellow Urine Appearance Clear Urine pH 7.5 (5.0-9.0) Ur Specific [place] >= 1.030 H (1.005-1.025) Urine Protein Negative (Neg-Trace) mg/dL Urine Glucose (UA) Negative (Negative) mg/dL Urine Ketones Negative (Negative) mg/dL Urine Blood Negative (Negative) Urine Nitrite Negative (Negative) Ur Leukocyte Esterase Negative (Negative) Influenza Type A (PCR) NEGATIVE (Negative) Influenza Type B (PCR) NEGATIVE (Negative) RSV RNA Qual (PCR) NEGATIVE (Negative) SARS-CoV-2 RNA (RT-PCR) NEGATIVE (Negative) Radiology Impression Discussion of test interpretation with radiology: I have reviewed the radiologist's reading. Radiologist Impression: CT/CT angio abdomen pelvis IMPRESSION: 1. There is a loop of thickened central small bowel which is inflamed, demonstrates wall thickening, and a focal contained extraluminal collection of gas (likely contained within the mesenteric leaflets) suggesting perforation. Findings are highly suspicious for perforated ischemic small bowel. See above for details. 2. No additional acute findings in the abdomen or pelvis. 3. Extensive calcification of the aorta with mild ectasia but no aneurysm. No dissection. 4. 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 Moderate ostial stenosis of the celiac axis. 5. Moderate ostial stenoses of the bilateral renal arteries. 6. Fibrotic changes in the lung bases. 7. Additional ancillary findings as discussed in the body of the report. Independent Historian Clinical information obtained from an independent historian. History obtained from or confirmed by: EMS External Record Review External record reviewed: Outpatient record and [facility] of the abdomen and pelvis with and without contrast with an impression including increased colonic stool volume with no diverticulitis or active inflammatory disease, peripheral artery disease with high-grade stenosis at the origin of the superior mesenteric and left renal arteries, the body of the CT reveals a fat containing right-sided Spigelian hernia Chronic Conditions Patient?s care impacted by: Other (See narrative above) Medications Administered Discontinued Medications Generic Name Dose Route Start Last Admin Trade Name Freq PRN Reason Stop Dose Admin Ceftriaxone Sodium 1 gm 07/05/24 15:46 07/05/24 16:35 Ceftriaxone Sodium 1 Gm Vial IVPUSH 07/05/24 15:47 1 gm ONCE ONE Administration Sodium Chloride 1,000 mls @ 999 mls/hr 07/05/24 13:15 07/05/24 14:15 Ns IV 07/05/24 14:15 Infused .Q1H1M CLAY Infusion Metronidazole 500 mg in 100 mls @ 100 mls/hr 07/05/24 15:46 07/05/24 16:35 Flagyl IV 07/05/24 16:45 100 mls/hr ONCE ONE Administration Iohexol 80 ml 07/05/24 14:30 07/05/24 14:30 Iohexol 350 Mg/Ml 100 Ml Infus..Btl IV 07/05/24 14:31 80 ml ONCE ONE Administration Critical Care Time Critical Care Time Critical Care Time: Yes Total Critical Care Time: 60 Attestation: I personally attest to this critical care time spent taking care of the patient exclusive of all other billable procedures was approximately 60 minutes including initial evaluation of patient, ordering tests, CT interpretation, medical consultation, documentation, re-evaluation. Discharge Plan Discharge Clinical Impression: Ischemia, bowel, Bowel perforation Patient Disposition: [facility] Transfer Details: [facility] ED to ED accepting physician Dr. Valderrama Prescriptions: No Action omeprazole 20 mg capsule,delayed release(DR/EC) 20 mg PO BID Qty: 180 3RF Actemra ACTPen 162 mg/0.9 mL pen injector 162 mg subcut Q2W Qty: 1.8 3RF leflunomide 20 mg tablet 20 mg PO DAILY Qty: 90 0RF magnesium citrate 125 mg capsule 125 mg PO DAILY Qty: 30 2RF pilocarpine HCl 5 mg tablet 5 mg PO BID Qty: 180 0RF gabapentin 600 mg tablet 600 mg PO TID Qty: 270 0RF docusate sodium 100 mg capsule 100 mg PO BID Qty: 60 0RF Novolog U-100 Insulin aspart 0 units subcut (via wearable injectr) DAILY Rx Instructions: via TANDEM insulin pump calcium citrate 200 mg (950 mg) Tablet 1,600 mg PO BID aspirin 81 mg Tablet,Delayed Release (Dr/Ec) 81 mg PO DAILY Qty: 90 0RF testosterone cypionate 200 mg/mL Oil 60 mg IM TU oxycodone 5 mg tablet 5 mg PO Q6H PRN (Reason: severe pain (scale score 7-10)) Qty: 16 0RF Rx Instructions: Partial Fill upon patient request. citalopram 20 mg tablet 20 mg PO DAILY PreserVision AREDS [id number],320-226-200 [id number] capsule 1 cap PO BID tamsulosin 0.4 mg capsule 0.4 mg PO BEDTIME cyclobenzaprine 10 mg tablet 10 mg PO DAILY acetaminophen [Tylenol 8 Hour] 650 mg tablet extended release 650 mg PO Q8H PRN (Reason: Pain) atorvastatin 40 mg tablet PO furosemide 20 mg tablet PO hydroxychloroquine 200 mg tablet See Rx Instructions PO .COMPLEX Qty: 144 0RF Rx Instructions: Take 2 tabs daily x5 days a week and 1 tab daily x2 days a week prednisone 2.5 mg tablet 7.5 mg PO DAILY Qty: 90 2RF cholecalciferol (vitamin D3) 50 mcg (2,000 unit) capsule 50 mcg PO BID Print Language: Kiswahili
[2024-07-05] MEDS: 0.9 % Sodium Chloride 1,000 ML 999 ML IV (13:08)
[2024-07-05 13:40] LABS: MANUAL DIFF FLAG NO
[2024-07-05 13:47] LABS: INTERNATIONAL NORM RATIO 1.1 (0.9-1.1); Prothrombin Time 12.8 SEC (10.9-12.4)
[2024-07-05 13:52] LABS: Basophils Percent Auto 0.4 % (0-2); Eosinophils Percent Auto 0.6 % (0-4); Hemoglobin 10.1 g/dl (14.0-18.0); Imm Gran Abs Auto 0.03 X10*3/uL (0.00-0.03); Imm Gran Pct Auto 0.6 % (0.0-0.4); Lymphocytes Absolute Auto 0.7 X10*3/uL (1.2-4.9); Lymphocytes Percent Auto 12.5 % (20-40); Mean Corpuscular HGB Conc 33.7 g/dl (31.0-36.0); Mean Corpuscular Hemoglobin 31.5 pg (27.0-33.0); Mean Corpuscular Volume 93.5 fL (80.0-98.0); Mean Platelet Volume 9.2 fL (9.4-12.4); Monocytes Absolute Auto 0.4 X10*3/uL (0.1-1.2); Monocytes Percent Auto 7.4 % (2-11); Neutrophils Absolute Auto 4.2 x10*3/uL (2.0-8.3); Neutrophils Percent Auto 78.5 % (45-73); Red Blood Count 3.21 X10*6/uL (4.60-5.80); Red Cell Distribution Width 14.2 % (11.0-16.0); White Blood Count 5.4 X10*3/uL (4.8-10.8)
[2024-07-05 13:53] LABS: Platelet Count 82 X10*3/uL (160-400)
[2024-07-05 13:56] LABS: Lipase 4 U/L (8-78)
[2024-07-05 13:58] LABS: Lactic Acid 1.9 mmol/L (0.5-2.0)
[2024-07-05 14:00] LABS: Alanine Aminotransferase 18 U/L (0-40); Albumin Level 2.9 g/dL (3.5-5.0); Alkaline Phosphatase 64 U/L (39-117); Anion Gap 8 (12-20); Aspartate Amino Transferase 31 U/L (5-37); Bilirubin Total 1.1 mg/dL (0.0-1.0); Blood Urea Nitrogen 23 mg/dL (9-16); Calcium 7.9 mg/dL (8.4-10.2); Carbon Dioxide 30 mmol/L (22-29); Chloride 111 mmol/L (96-108); Estimated Glomerular Filt Rate > 60; Glucose Random 138 mg/dL (60-115); Magnesium 1.8 mg/dL (1.6-2.6); Potassium 3.8 mmol/L (3.3-5.1); Sodium 145 mmol/L (135-145); Total Protein 4.4 g/dL (6.5-8.0)
[2024-07-05 14:06] LABS: Troponin-I High Sensitivity 19.2 ng/L (<3.5-35.0)
[2024-07-05] MEDS: iohexoL 350 MG/ML 100 ML INFUS..BTL 80 ML IV (14:30)
[2024-07-05 14:45] VITALS: BP 114/53; PULSE 80; RESP 13; TEMP 36.4; O2SAT 98
[2024-07-05 15:38] LABS: Influenza A PCR NEGATIVE (Negative); Influenza B PCR NEGATIVE (Negative); Resp Syncy Virus RNA Qual PCR NEGATIVE (Negative); SARS COV2 PCR INHOUSE NEGATIVE (Negative)
[2024-07-05 16:17] LABS: Appearance Urine Clear; Color Urine Yellow; Glucose Urine UA Negative (Negative); Leukocyte Esterase Urine Negative (Negative); Nitrite Urine Negative (Negative); PH 7.5 (5.0-9.0); Specific Gravity - Urine >= 1.030 (1.005-1.025); Urine Blood Negative (Negative); Urine Ketones Negative (Negative); Urine Protein Negative (Neg-Trace)
[2024-07-05 16:24] VITALS: BP 126/49; PULSE 84; RESP 16; O2SAT 97
[2024-07-05] MEDS: cefTRIAXone sodium 1 GM VIAL IVPUSH (16:35)
[2024-07-05] MEDS: metroNIDAZOLE/NS 500 MG/100 ML PIGGYBACK 100 MG IV (16:35)
[2024-07-05 16:45] LABS: Troponin-I High Sensitivity 23.6 ng/L (<3.5-35.0)
--- NOTE | 2024-07-05 16:52 | PC.NURSE ---
Pt is aware of plan for surgery. Last PO was this AM. states he has no abd pain at thie moment and declined offer for pain meds. Axox3. Has CGM and insluin pump in place but to insulin being adminstered.
[2024-07-05 17:46] VITALS: BP 145/67; PULSE 76; RESP 18; TEMP 37; O2SAT 98
[2024-07-05 18:14] LABS: Glucose, Whole Blood 134 mg/dL (60-115)
[2024-07-05] MEDS: fentaNYL citrate/PF 100 MCG/2 ML VIAL 50 MCG IVPUSH (18:55)
[2024-07-05 19:14] VITALS: BP 145/67; PULSE 76; RESP 18; TEMP 37; O2SAT 98
--- NOTE | 2024-07-05 19:14 | PC.NURSE ---
Rn to RN with Ronni at [facility] ED.
== END 2024-07-05 19:15 | disposition short-term general hospital (02) ==
PROVIDERS: Nurse Practitioner Family; Physician Assistant Medical; Emergency Provider Emergency Medicine
DX: K55.9 Vascular disorder of intestine, unspecified (principal); K63.1 Perforation of intestine (nontraumatic); E11.9 Type 2 diabetes mellitus without complications; I10 Essential (primary) hypertension; E78.00 Pure hypercholesterolemia, unspecified; Z87.891 Personal history of nicotine dependence; Z79.4 Long term (current) use of insulin; Z96.41 Presence of insulin pump (external) (internal); Z03.818 Encounter for observation for suspected exposure to other biological agents ruled out; Z79.82 Long term (current) use of aspirin; Z79.02 Long term (current) use of antithrombotics/antiplatelets
CPT/HCPCS: 0241U; 36415; 74174; 80053; 81003; 82947; 83605; 83690; 83735; 84484; 85025; 85610; 86850; 86900; 86901; 87040; 93005; 96361; 96365; 96366; 96375; 99285; J0696; J1836; J3010; Q9967

== ENCOUNTER → 2024-07-05 12:26 | Outpatient (BNV) | payer MEDICARE, SELFPAY | PROVIDERS: Emergency Provider Emergency Medicine; Visit Provider Internal Medicine Cardiovascular Disease | DX: R94.31 Abnormal electrocardiogram [ECG] [EKG] (principal); R10.9 Unspecified abdominal pain | CPT/HCPCS: 93010 ==

== ENCOUNTER → 2024-07-05 13:15 | Outpatient (BNV) | payer MEDICARE, SELFPAY | PROVIDERS: Emergency Provider Emergency Medicine; Visit Provider Radiology Diagnostic Radiology | DX: K63.89 Other specified diseases of intestine (principal); I77.1 Stricture of artery; I70.1 Atherosclerosis of renal artery | CPT/HCPCS: 74174 ==

== ENCOUNTER 2024-07-29 11:56 | Outpatient (AMB) | payer MEDICARE, SELFPAY ==
--- NOTE | 2024-07-29 12:11 | MHC.OFFVIS ---
Vital Signs 07/29/24 12:15 Height 5 ft 1 in Weight 164 lb BMI 31.0 BP 132/67 Blood Pressure Location Lt brachial Position Sitting Pulse 115 H Intake Visit Reasons: Gastritis Intake Note: Patient follow up for Gastritis Patient denies any GI issues. 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: No Accompanied by: Self / Same As Patient Allergies Penicillins Allergy (Severe, Verified 07/29/24 12:10) ITCHING-SEVERE piperacillin [From Zosyn] Allergy (Mild, Verified 07/29/24 12:10) JAUNDICE tazobactam [From Zosyn] Allergy (Mild, Verified 07/29/24 12:10) JAUNDICE HPI HPI Gastritis: Details: 83 yr old m here for f/u Hx of microscopic colitis, DM, HLP, HTN and RA (on enbrel now) He had colonoscopy due to rectal bleeding and FH of CRC in brother Colonoscopy done 05/2020- diverticulosis, polyps one was adenoma, internal hemorrhoids I did an EGD due to anemia w/u and this revealed erosive gastritis---probbaly pill induced, maybe from steroids He went to ED 07/05/24 and had imaging with gas in small bowel and concern for ischemic bowel with atherosclerosis noted in SMA and celiac axis He was trnasferred to [facility] and had exp lap with jejunal perf noted with resection. INTERIM: he is recovering from surgery he has no abdominal pain appetite is good no diarrhea or constipation EXAM: GENERAL: The patient is well developed and nontoxic, lots of bruises on hands VITAL SIGNS:see workflow HEENT: Nonicteric sclerae, PERRLA, EOMI. Oropharynx clear. Moist mucous membranes. Conjunctivae appear well perfused. No thyroid mass. CHEST: Chest wall is nontender. HEART: Regular rate and rhythm with ESM 3/6 goes into the neck LUNGS: Clear to auscultation bilaterally. ABDOMEN: Soft, positive bowel sounds, nontender, no organomegaly.no flank tenderness SKIN: No rash, + excessive bruising, NEUROLOGIC: Cranial nerves II-XII intact without motor/sensory deficit. A/P: jejunal diverticulum perforation, stable now PLAN: 1/ cont with PPI 2/ high fiber diet discussed --unsure how much will help but can try anyhow [facility] Medical History Symptomatic stenosis of left carotid artery Aortic stenosis Rheumatoid arthritis Carpal tunnel syndrome Former smoker Insulin pump in place Diabetes Elevated cholesterol CAD (coronary artery disease) HTN (hypertension) Surgical History History of left-sided carotid endarterectomy (02/15/23) Hx of carpal tunnel repair Hx of cardiac catheterization History of shoulder surgery History of cholecystectomy History of hand surgery Hx of hemorrhoidectomy Hx of lumbar discectomy H/O colonoscopy Family History Father Heart attack Heart disease Mother Pacemaker Cataracts, bilateral Sister Heart problem Heart valve replaced Arthritis Brother Heart attack Brother Rectal cancer Sister History of modified radical mastectomy of right breast Social History Household Members: None Housing: House Are you a primary auto care center manager to a significant other at home: No Do you presently have visiting nurse or other home services: No Alcohol intake: never Patient Tobacco Use Status: Former Tobacco user Tobacco use type: Cigarette Years Smoked: 5 YEARS Advance Directives Date on File: 02/07/23 service: No Current occupational status: employed Current occupation: [employer], rt handed Physical Exam Vital Signs: Last Vital Signs Pulse 115 H 07/29/24 12:15 BP 132/67 07/29/24 12:15 BMI result Body Mass Index 31.0 Assessment & Plan Assessment & Plan (1) Diverticulitis, jejunum: Code(s): K57.12 - Diverticulitis of small intestine without perforation or abscess without bleeding Category: Medical Plan: as above Medications: New psyllium husk (with sugar) 3 gram/7 gram (Metamucil (with sugar)) 1 tbsp PO DAILY 822 grams 1RF Coding Level of Care Code Est Pt Level 3 (67477) Diagnoses Diverticulitis, jejunum K57.12
[2024-07-29 12:15] VITALS: BP 132/67; PULSE 115; BMI 31.0
== END 2024-07-29 12:45 | disposition home or self-care (01) ==
PROVIDERS: Visit Provider Internal Medicine Gastroenterology
DX: K57.12 Diverticulitis of small intestine without perforation or abscess without bleeding (principal)
CPT/HCPCS: 99213

== ENCOUNTER → 2024-07-29 11:56 | Outpatient (BNVA) | payer MEDICARE, SELFPAY | PROVIDERS: Visit Provider Internal Medicine Gastroenterology | DX: K57.12 Diverticulitis of small intestine without perforation or abscess without bleeding (principal) | CPT/HCPCS: 99212 ==

== ENCOUNTER 2024-07-31 13:23 | Outpatient (AMB) | payer MEDICARE, SELFPAY ==
--- NOTE | 2024-07-31 13:52 | A.OFFVIS_ITS ---
Vital Signs 07/31/24 14:03 Height 5 ft 7 in Weight 158 lb 15.253 oz BMI 24.9 BP 142/80 H Blood Pressure Location Rt brachial Position Sitting Respiration 18 Pulse 99 Pulse Source Pulse Oximeter Pulse Oximetry (%) 95 Oxygen Delivery Method Room Air Intake Visit Reasons: RA Intake Note: Patient presents for RA follow up. Allergies Penicillins Allergy (Severe, Verified 07/31/24 13:57) ITCHING-SEVERE piperacillin [From Zosyn] Allergy (Mild, Verified 07/31/24 13:57) JAUNDICE tazobactam [From Zosyn] Allergy (Mild, Verified 07/31/24 13:57) JAUNDICE Medication List - Last Reconciled 07/31/24 by Beatriz Soto MD acetaminophen ER (Tylenol 8 Hour) 650 mg PO Q8H PRN amlodipine 2.5 mg PO DAILY aspirin 81 mg PO DAILY atorvastatin mg PO atorvastatin (Lipitor) 10 mg PO DAILY calcium citrate 1,600 mg PO BID cholecalciferol (vitamin D3) 50 mcg PO BID citalopram 20 mg PO DAILY cyclobenzaprine 10 mg PO DAILY furosemide mg PO gabapentin 600 mg PO TID hydroxychloroquine Take 2 tabs daily x5 days a week and 1 tab daily x2 days a week leflunomide 20 mg PO DAILY [Novolog U-100 Insulin aspart via TANDEM insulin pump] omeprazole 20 mg PO BID pilocarpine HCl 5 mg PO BID prednisone 7.5 mg (3 x 2.5 mg) PO DAILY tamsulosin 0.4 mg PO BEDTIME testosterone cypionate 60 mg IM TU vitamins A,C,Z-rmft-ahbott 4,296 mcg-226 mg-90 mg (PreserVision AREDS) 1 cap PO BID HPI Comments Details: Patient is an 84-year-old male hypertension, hyperlipidemia, aortic stenosis, diabetes now with insulin pump, osteoporosis with pathological fracture of thoracic vertebrae, seropositive rheumatoid arthritis s/p bilateral carpal fusion, bilateral CTS s/p release and polyarticular osteo arthritis here today for follow up Interval History: Patient last seen 05/21/[address] Neil. At that time he reported continued pain and stiffness of his left hand and wrists as well as pain and stiffness in his right hand PIP. His morning stiffness lasts 3 hours. Based on the exam he was noted to have mildly active disease and was started on Plaquenil. Since last visit he presented with diverticulitis c/b perforation requiring wash out. He recently got discharged from rehab Today, Complaining of right medial knee swelling Rheumatologic History: Seronegative initially diagnosed has PMR around 2004 Was only on prednisone until 2021 when HCQ was added with little benefit MTX added 08/2022- -11/08 not particularly effective and patient developed tender skin nodule on LT forearm Enbrel 11/08-02/08 ineffective Actemra 03/11 effective HCQ DC 11/2023, restarted 05/2024 Leflunomide ?start date Current Rheumatology Medication(s): Hydroxychloroquine 200mg bid daily Actemra 162mg SC every other week Leflunomide 10mg daily Prednisone 7.5mg PFS Medical History (Updated 07/31/24 @ 15:07 by Beatriz Soto MD) Encounter for monitoring leflunomide therapy Long-term use of Plaquenil Symptomatic stenosis of left carotid artery Aortic stenosis Rheumatoid arthritis Carpal tunnel syndrome Former smoker Insulin pump in place Diabetes Elevated cholesterol CAD (coronary artery disease) HTN (hypertension) Surgical History History of left-sided carotid endarterectomy (02/15/23) Hx of carpal tunnel repair Hx of cardiac catheterization History of shoulder surgery History of cholecystectomy History of hand surgery Hx of hemorrhoidectomy Hx of lumbar discectomy H/O colonoscopy Family History Father Heart attack Heart disease Mother Pacemaker Cataracts, bilateral Sister Heart problem Heart valve replaced Arthritis Brother Heart attack Brother Rectal cancer Sister History of modified radical mastectomy of right breast Social History Household Members: None Housing: House Are you a primary technical healthcare consultant to a significant other at home: No Do you presently have visiting nurse or other home services: No Alcohol intake: never Patient Tobacco Use Status: Former Tobacco user Tobacco use type: Cigarette Years Smoked: 5 YEARS Advance Directives Date on File: 02/07/23 service: No Current occupational status: employed Current occupation: [employer], rt handed Review of Systems Const Details: Review of Systems Constitutional: Denies fever, chills, weight loss ENT: Denies vision changes, eye pain or eye redness, dental caries, dry mouth GI: Denies nausea, vomiting, diarrhea, abdominal pain, change in BM Pulm: Denies SOB, GARCIA, hemoptysis, wheezing Cards: Denies chest pain, palpitations Skin: Denies Raynaud's, rash, nail changes, photosensitivity, HOP PICKER: Denies headaches, weakness, paresthesias, recurrent falls MSK: as per HPI All other systems reviewed and are unremarkable except noted above Physical Exam Vital Signs: Last Vital Signs Pulse 99 07/31/24 14:03 Resp 18 07/31/24 14:03 BP 142/80 H 07/31/24 14:03 Pulse Ox 95 07/31/24 14:03 Oxygen Delivery Method Room Air 07/31/24 14:03 BMI result Body Mass Index 24.9 Vital signs reviewed Physical Examination CONSTITUITIONAL Patient alert and cooperative. Well appearing and in no apparent painful distress HEENT Conjunctiva and sclera clear. ?Pupils equal round and reactive to light. ?No lymphadenopathy. ? CHEST/RESPIRATORY SYSTEM Normal respiratory effort and able to speak in complete sentences. ?Clear to auscultation bilaterally. ?No crackles, rales, rhonchi, wheezes heard. CARDIAC SYSTEM Regular rate and rhythm. ?S1 and S2 heard no murmurs. ?Radial pulses intact bilaterally MSK Hands: ?Good grain unloader strength bilaterally. No deformities noted. ?No synovitis noted to the MCPs, PIPs or DIPs. ?No tenderness to palpation of these joints. Heberden's nodes noted Wrists: ?Bilateral wrist fusion Elbows: Full range of motion without pain. No tenderness, weakness, swelling, increased warmth or erythema. Shoulders: Full range of motion without pain. No tenderness, weakness, swelling, increased warmth or erythema. Hips: Full range of motion without pain. Hip bursa: No tenderness to palpation Knees: ?Full range of motion. ?Swelling and minimal tenderness noted to the right medial pes anserinus bursa. Ankles: Full range of motion. ?No tenderness, swelling, increased warmth or erythema.? Feet: ?Negative squeeze test. ?No tenderness to palpation or swelling of the MTPs. Tender points:?No tenderness to palpation of the bilateral trapezius, supraspinatus, greater trochanters, anterior costochondral junctions, bilateral gluteal areas, bilateral suboccipital muscle insertions SKIN Skin intact without rashes. Office Procedures AMB Joint Injection/Aspiration Joint Injection/Aspiration Details: Procedure was explained to the patient and consent was obtained. ? The area of interest was identified and confirmed with patient. ?This was subsequently cleaned with chlorhexidine x3. ? The area was then anesthetized using ethyl chloride spray. 40 mg Kenalog with 1 cc 1% lidocaine was injected without issue. ?Minimal to no bleeding. ?Patient tolerated procedure. Primary Site: other (Right pes anserine bursa) Prep: site was prepped using aseptic technique and ethochloride spray was applied Injected: 40 mg of, Kenalog, with 1 mL of and 1% plain lidocaine Approach Used: other Procedure: The patient tolerated the procedure well Coding 27677 - Glenohumeral/Tronchanteric Bursa/Intraarticular Procedure code (CPT) selection complete Office Meds lidocaine (PF) 10 mg/mL (1 %) injection solution Performing Provider: Beatriz Soto MD [place] [facility] [place] [facility] Administered by: Beatriz Soto MD on 07/31/24 15:21 Dose Route Admin Location Dispensed Lot Number Expiration Date [facility] [employer] 1 mL Infiltration Right pes anserine bursa 2 mL [id number] 09/17/26 13761-064-58 [facility] Kenalog 40 mg/mL suspension for injection Performing Provider: Beatriz Soto MD [place]forming [place] [facility] [place] [facility] Administered by: Beatriz Soto MD on 07/31/24 15:21 Dose Route Admin Location Dispensed Lot Number Expiration Date [facility] [employer] 40 mg intrabursal Right pes anserine bursa 1 mL [id number] 12/17/25 [id number] [employer] Results Reviewed Results Reviewed: Laboratory Tests 06/24/22 06/14/24 07/05/24 14:26 13:23 13:35 WBC 5.4 RBC 3.21 L D Hgb 10.1 L D Hct 30.0 L D Plt Count 82 L D ESR 1 Sodium 145 Potassium 3.8 Chloride 111 H Carbon Dioxide 30 H BUN 23 H Creatinine 0.75 Calcium 7.9 L D Magnesium 1.8 Total Bilirubin 1.1 H AST 31 ALT 18 Alkaline Phosphatase 64 Troponin I High Sens 19.2 D C-Reactive Protein < 0.04 Hepatitis A IgM Ab Nonreactive Hep Bs Antigen Negative Hep Bs Antibody NONREACTIVE Hep B Core Total Ab Nonreactive Hepatitis C Ab (EIA) Nonreactive TB Test (T-Spot) Com Negative Assessment & Plan Assessment & Plan (1) Rheumatoid arthritis: Comment: Seronegative initially diagnosed has PMR around 2004 Was only on prednisone until 2021 when HCQ was added with little benefit MTX added 08/2022- -11/08 not particularly effective and patient developed tender skin nodule on LT forearm Enbrel 11/08-02/08 ineffective Actemra 03/11 effective - 07/2024. Diverticulitis with perforation HCQ DC 11/2023 Code(s): M06.9 - Rheumatoid arthritis, unspecified Category: Medical Qualifiers: Rheumatoid arthritis location: multiple sites Rheumatoid factor presence: without rheumatoid factor Qualified Code(s): M06.09 - Rheumatoid arthritis without rheumatoid factor, multiple sites Plan: #Seronegative RA Patient is a pleasant 84-year-old male with seronegative rheumatoid arthritis. Given his recent history of diverticulitis with perforation we need to stop the Actemra. We will continue with patient only on leflunomide and hydroxychloroquine and we will revisit him in 3 months to see if he needs additional immunosuppression. Plan - Stop Actemra - Hydroxychloroquine 200mg daily - Leflunomide 10mg daily - Decrease prednisone to 5mg daily - RTC 3 months - Labs before visit: CBC, CMP, ESR, CRP, hepatitis panel, T spot (2) Pes anserinus bursitis of right knee: Code(s): M70.51 - Other bursitis of knee, right knee Plan: #Right knee pes anserine bursitis S/p steroid injection today (3) Long-term use of Plaquenil: Code(s): Z79.899 - Other lobsterman (current) drug therapy Category: Medical Plan: #Long-term Use of Hydroxychloroquine Discussed with patient the risks and benefits of hydroxychloroquine in managing the rheumatic condition Benefits include: - Reduced pain, reduce mortality, maintenance of remission and reduction of flares Risks include: - GI upset, skin hyperpigmentation, retinal toxicity (especially after more than 5 years of use), myopathy Advised yearly ophthalmology visits (4) Encounter for monitoring leflunomide therapy: Code(s): Z51.81 - Encounter for therapeutic drug level monitoring; Z79.69 - long-term (current) use of other immunomodulators and immunosuppressants Category: Medical Plan: #Long-term leflunomide Discussed with patient the benefits and risks of leflunomide for managing the rheumatic condition Benefits include: - Reduced pain, maintenance of remission and reduction of flares Risks include: - GI upset especially diarrhea, skin rash, cytopenias, hepatotoxicity, weight loss, neuropathy Leflunomide is highly teratogenic. ?Has a very long half-life. ?Needs cholestyramine washout if there is desire for Initiation: ?CBC, BMP, LFTs, hepatitis-B and C serologies every 2-4 weeks for 3 months Monitoring: ?CBC, BMP, LFTs, hepatitis B and C serologies Plan I spent 30 minutes reviewing the record and labs, taking a history, examining the patient, discussing the treatment plan and documenting in the medical record Orders: Orders C Reactive Protein 3 Months M06.09 - Rheumatoid arthritis without rheumatoid factor, multiple sites, Z51.81 - Encounter for therapeutic drug level monitoring, Z79.69 - long-term (current) use of other immunomodulators and immunosuppressants, Z79.899 - Other correction (current) drug therapy T Spot TB 3 Months M06.09 - Rheumatoid arthritis without rheumatoid factor, multiple sites, Z51.81 - Encounter for therapeutic drug level monitoring, Z79.69 - emt intermediate (current) use of other immunomodulators and immunosuppressants, Z79.899 - Other lobsterman (current) drug therapy AMB Joint Injection/Aspiration Today M70.51 - Other bursitis of knee, right knee Complete Blood Count Auto Diff 3 Months M06.09 - Rheumatoid arthritis without rheumatoid factor, multiple sites, Z51.81 - Encounter for therapeutic drug level monitoring, Z79.69 - emt intermediate (current) use of other immunomodulators and immunosuppressants, Z79.899 - Other lobsterman (current) drug therapy Comprehensive Met. Panel 3 Months M06.09 - Rheumatoid arthritis without rheumatoid factor, multiple sites, Z51.81 - Encounter for therapeutic drug level monitoring, Z79.69 - long-term (current) use of other immunomodulators and immunosuppressants, Z79.899 - Other correction (current) drug therapy Erythrocyte Sedimentation Rate 3 Months M06.09 - Rheumatoid arthritis without rheumatoid factor, multiple sites, Z51.81 - Encounter for therapeutic drug level monitoring, Z79.69 - long-term (current) use of other immunomodulators and immunosuppressants, Z79.899 - Other lobsterman (current) drug therapy Hepatitis A,B,C Profile 3 Months M06.09 - Rheumatoid arthritis without rheumatoid factor, multiple sites, Z51.81 - Encounter for therapeutic drug level monitoring, Z79.69 - emt intermediate (current) use of other immunomodulators and immunosuppressants, Z79.899 - Other lobsterman (current) drug therapy Medications: New prednisone 5 mg PO DAILY 90 tabs 1RF M06.09 - Rheumatoid arthritis without rheumatoid factor, multiple sites Changed From hydroxychloroquine Take 2 tabs daily x5 days a week and 1 tab daily x2 days a week 144 tabs 0RF To hydroxychloroquine Take 1 tab daily Mon - Fri and 1 tab twice a day Sat-Sun Do not take with citalopram 108 tabs 1RF Refilled leflunomide 20 mg PO DAILY 90 tabs 1RF M06.09 - Rheumatoid arthritis without rheumatoid factor, multiple sites, Z51.81 - Encounter for therapeutic drug level monitoring, Z79.69 - emt intermediate (current) use of other immunomodulators and immunosuppressants Discontinued prednisone Discontinued Reason: Doctor's Order 7.5 mg (3 x 2.5 mg) PO DAILY 90 tabs 2RF Actemra ACTPen (tocilizumab) Discontinued Reason: Doctor's Order 162 mg (0.9 mL) subcut Q2W 1.8 mL 3RF NS Coding Level of Care Code Est Pt Level 4 (64128) Complex EM visit Add On G2211 Diagnoses Rheumatoid arthritis of multiple sites with negative rheumatoid factor M06.09 Rheumatoid arthritis location: multiple sites Rheumatoid factor presence: without rheumatoid factor Pes anserinus bursitis of right knee M70.51 Long-term use of Plaquenil Z79.899 Encounter for monitoring leflunomide therapy Z51.81; Z79.69 CPT Codes Coding - Joint 7: 42499 - Glenohumeral/Tronchanteric Bursa/Intraarticular ([id number])
[2024-07-31 14:03] VITALS: BP 142/80; PULSE 99; RESP 18; O2SAT 95; BMI 24.9
--- OUTSIDE RECORDS SUMMARY | 2024-07-31 14:44 | XMS_ITS | Encounter Summary ---
Author Organization [employer] Address [address] [place] [address] Care Team Providers Care Public Relations Studies Director Name Role Phone Gisselle Gilman MD Primary Care Provider [phone] Encounter Details Date Type Department Care Team (Late st Contact Info) Description 07/29/2024 Lab Requisition [facility] - Main Lab [address] [facility] [place] [address] Trina Brock MD [address] [place] [address] Type 2 diabetes mellitus without complications (CMS/HCC); Atherosclerotic heart disease of [place] coronary artery without angina pectoris; Benign prostatic hyperplasia without lower urinary tract symptoms; Occlusion and stenosis of left vertebral artery Social History Tobacco Use Types Packs/Day Years Used Date Smoking Tobacco: Former Cigarettes Q uit: 06/19/1962 Smokeless Tobacco: Never Alcohol Use Standard Drinks/Week Comments No 0 (1 standard drink = 0.6 oz pur e alcohol) Sex and Gender Information Value Date Recorded Sex Assigned at Not on file Legal Sex Male 11:27 AM EST Gender Identity Not on file Sexual Orientation Not on file documented as of this encounter Plan of Treatment Not on file documented as of this encounter Visit Diagnoses Diagnosis Type 2 diabetes mellitus without complications (CMS/HCC) Atherosclerotic heart disease of [place] coronary artery without angina pectoris Benign prostatic hyperplasia without lower urinary tract symptoms Occlusion and stenosis of left vertebral artery documented in this encounter Care Teams Public Relations Studies Director Relationship Specialty Start Date End Date Gisselle Gilman MD [address] [place] [phone] PCP - General 05/30/12 documented as of this encounter
--- OUTSIDE RECORDS SUMMARY | 2024-07-31 14:44 | XMS_ITS | Continuity of Care Document ---
Author Organization [facility] Address [address] [place] [address] ve [address] [place] [address]- Care Team Providers Care Cushion Mat Maker Name Role Phone Jamilah Gann Primary Care Physician [id number] Date(s): 07/22/24 - 07/29/24 [facility] [address] [place] [address]- Encounter Diagnosis Perforated diverticulum of jejunum(Discharge Diagnosis) - 07/17/24 Attending Physician: Freya Carvajal MD Encounter Type: Office Visit Allergies, Adverse Reactions, Alerts Substance Criticality Severity Reaction Reaction Severity Status penicillin Active Zosyn Active Medications (Vitamin D3) Cholecalciferol 400 PENITENTIARY units/mL oral syringe 1 mL = 10 mcg, By Mouth, Daily, 0 Refills, Maintenance, 11/18/20 9:38:00 AM EDT, Partial fill upon patientrequest if the prescription is for a schedule II opioid drug. Start Date: 11/18/20 Status: Ordered Repeat number: 1 Actemra 162 mg/0.9 mL subcutaneous solution = 162 mg, Subcutaneous Injection, Every week, 0 Refills, Maintenance, 09/06/23 9:16:00 AM EDT, Solution, Partial fill upon patient request if the prescription is for a schedule II opioid drug. Start Date: 09/06/23 Status: Ordered Repeat number: 1 amLODIPine 2.5 mg oral tablet 2.5 mg, 1, tablet, By Mouth, Daily, Refills 0, Maintenance, 04/24/17 2:19:16 PM EST Start Date: 04/24/17 Status: Ordered Repeat number: 1 aspirin (OP) 0 Refills, Maintenance, 2 Start Date: 11/18/20 Status: Ordered Repeat number: 1 atorvastatin 10 mg oral tablet = 40 mg, By Mouth, Daily, 0 Refills, Maintenance, 11/18/20 9:38:00 AM EDT, Partial fill upon patient request if the prescription is for a schedule II opioid drug. Start Date: 11/18/20 Status: Ordered Repeat number: 1 Calcium Citrate = 800 mg, By Mouth, Daily, 0 Refills, Maintenance, 09/08/23 9:43:00 AM EDT, Partial fill upon patient request if the prescription is for a schedule II opioid drug. Start Date: 09/08/23 Status: Ordered Repeat number: 1 Cyclobenzaprine = 10 mg, By Mouth, Daily at bedtime, 0 Refills, Maintenance, 11/18/20 9:37:00 AM EDT, Partial fill upon patient request if the prescription is for a schedule II opioid drug. Start Date: 11/18/20 Status: Ordered Repeat number: 1 Furosemide = 20 mg, By Mouth, Daily, 0 Refills, Maintenance, 07/14/18 12:06:53 PM EST Start Date: 07/14/18 Status: Ordered Repeat number: 1 gabapentin 300 mg oral capsule 300 mg, 1, capsule, By Mouth, 3 times a day, # 90 capsule, Refills 5, Maintenance, 10/03/23 5:36:00 PM EDT, Partial fill upon patient request if the prescription is for a schedule II opioid drug. Start Date: 10/03/23 Status: Ordered Quantity: 90.0 Unit: capsule Repeat number: 1 hydroxychloroquine 200 mg oral tablet 200 mg, 1, tablet, By Mouth, Daily, Refills 0, Maintenance, 10/03/23 8:47:00 AM EDT, Partial fill upon patient request if the prescription is for a schedule II opioid drug. Start Date: 10/03/23 Status: Ordered Repeat number: 1 losartan 50 mg oral tablet 100 mg, 2, tablet, By Mouth, Daily, # 30 tablet, Soft Stop Start Date: 09/22/08 Stop Date: 10/21/08 Status: Ordered Quantity: 30.0 Unit: tablet Repeat number: 1 NovoLog Inj as directed, Subcutaneous Infusion, 3 times a day, 09/22/08 6:20:37 AM EDT Start Date: 09/22/08 Status: Ordered Repeat number: 1 omeprazole 20 mg oral delayed release tablet = 20 mg, By Mouth, 2 times a day, # 180 capsule, 0 Refills, Maintenance, 08/06/18 3:35:00 PM [facility] Start Date: 08/06/18 Stop Date: 11/04/18 Status: Ordered Quantity: 180.0 Unit: capsule Repeat number: 1 pilocarpine 5 mg oral tablet 1 tablet = 5 mg, By Mouth, 2 times a day, 0 Refills, Maintenance, 11/18/20 9:39:00 AM EDT, Partial fill upon patient request if the prescription is for a schedule II opioid drug. Start Date: 11/18/20 Status: Ordered Repeat number: 1 predniSONE 2 mg oral delayed release tablet 2 tablet = 4 mg, By Mouth, Daily, # 60 tablet, 0 Refills, Maintenance, 09/06/23 8:59:00 AM EDT, CR Tablet, Partial fill upon patient request if the prescription is for a schedule II opioid drug. Start Date: 09/06/23 Status: Ordered Quantity: 60.0 Unit: tablet Repeat number: 1 PreserVision By Mouth, Daily, 0 Refills, Maintenance, 11/18/20 9:39:00 AM EDT, Partial fill upon patient request if the prescription is for a schedule II opioid drug. Start Date: 11/18/20 Status: Ordered Repeat number: 1 Probiotic Formula By Mouth, Daily, 0 Refills, Maintenance, 11/18/20 9:38:00 AM EDT, Partial fill upon patient request if the prescription is for a schedule II opioid drug. Start Date: 11/18/20 Status: Ordered Repeat number: 1 tamsulosin 0.4 mg oral capsule 0.4 mg, 1, capsule, By Mouth, Daily, # 30 capsule, Refills 0, Maintenance, 09/06/23 9:19:00 AM EDT, Partial fill upon patient request if the prescription is for a schedule II opioid drug. Start Date: 09/06/23 Status: Ordered Quantity: 30.0 Unit: capsule Repeat number: 1 testosterone (OP) = 60.75 mg, Every Monday, 0 Refills, Maintenance, 2 Start Date: 09/06/23 Status: Ordered Repeat number: 1 Tylenol 8 Hour 650 mg oral tablet, extended release 2 tablet = 1,300 mg, By Mouth, Every 8 hours, PRN as needed for pain, # 50 tablet, 0 Refills, Maintenance, 09/06/23 8:57:00 AM EDT, ER Tablet, Partial fill upon patient request if the prescription is for a schedule II opioid drug. Start Date: 09/06/23 Status: Ordered Quantity: 50.0 Unit: tablet Repeat number: 1 Problem List Condition Confirmation Course Effective Dates Status Health St atus Informant Superior mesenteric artery stenosis Confirmed Active Small bowel perforation Confirmed Active Renal artery stenosis Confirmed Active Diagnosis Diagnosis Type Effective Dates Health Status Clinical Service Informant Perforated diverticulum of jejunum Discharge Diagnosis 07/17/24 Vital Signs Most recent to oldest [Reference Range]: 1 Height 170 cm (07/22/24 10:50 AM) Weight 74.6 kg (07/22/24 10:50 AM) Pulse Rate [55-90 bpm] 91 bpm *H* (07/22/24 10:50 AM) Body Mass Index [18.5-24.99 kg/m2] 25.81 kg/m2 *H* (07/22/24 10:50 AM) Blood Pressure [90-138/55-84 mm Hg] 170/ 85mm Hg *H* (07/22/24 10:50 AM) Temperature [96.8-100.4 DegF] 96.6 DegF *L* (07/22/24 10:50 AM) Blood pressure sites Arm, left (07/22/24 10:50 AM) Temperature Route Temporal (07/22/24 10:50 AM) Social History Social History Type Response Smoking Status Former smoker; Tobac co user in household: No entered on: 09/12/17 Sex Sex Representation Male (finding) Patient Care team information Care Team Personnel Name: Erna Mckeon RN Position: S RN Member Role: Primary Care Nurse Name: Hannah WU, Nancy Falcon Position: S RN Member Role: Primary Care Nurse Name: Jamilah Gann Position: Reference Physician Member Role: PCP Address: [address] [place] [address]- Telecom: Name: Anastasia Oliva RN Position: S RN Member Role: Primary Care Nurse Care Team Related Persons Name: LUISITO SHEPHERD Name: GRACIE SHEPHERD Insurance Providers Guarantor name: BEBO SHEPHERD Health Plan Information #: 3 Payer: [employer] [place] Member Number: [id number] Policy Number: NA Group Number: NA Health Plan Information #: 1 Payer: MEDICARE PART B OUTPT Member Number: [id number] Policy Number: RAVEN Group Number: RAVEN Health Plan Information #: 2 Payer: MEDEX Member Number: [id number] Policy Number: NA Group Number: NA
--- OUTSIDE RECORDS SUMMARY | 2024-07-31 14:44 | XMS_ITS | Encounter Summary ---
Author Name [facility] Organization [facility] [employer] Address [address] [place] [address] Care Team Providers Care Rn School Name Role Phone TOÑO CAI Primary Care [...] Relationship to Policy Wen [place] MED[place] SUPPLEMEN MASTER PSUED O MEDEX BRON E Mar 19, 2004 [id number] HOLLIE SHEPHERD PATIENT [place] SUPPLEMEN MASTER MEDEX BRONZ E Mar 19, 2004 [id number] HOLLIE SHEPHERD [place] SUPPLEMEN MASTER MEDEX BRONZ E Mar 19, 2004 [id number] HOLLIE SHEPHERD PATIENT BCBS [facility] MEDICARE SUPPLEMEN MASTER PSUED O MEDEX BRONZ E Mar 19, 2004 [id number] HOLLIE SHEPHERD PATIENT MEDICARE (WNR) MEDICARE (M) PART B Mar 19, 2004 PART B [id number] HOLLIE SHEPHERD PATIENT MEDICARE (WNR) MEDICARE (M) PART B Mar 19, 2004 PART B [id number] HOLLIE SHEPHERD ALD PATIENT MEDICARE (WNR) MEDICARE (M) PART B Mar 19, 2004 PART B [id number] HOLLIE SHEPHERD ALD PATIENT MEDICARE (WNR) MEDICARE (M) PART A Feb 17, 2003 PART A [id number] CORAHOLLIE SILVA ALD PATIENT MEDICARE (WNR) MEDICARE (M) PART A Feb 17, 2003 PART A [id number] HOLLIE SHEPHERD ALD PATIENT MEDICARE (WNR) MEDICARE (M) PART A Feb 17, 2003 PART A [id number] HOLLIE SHEPHERD PATIENT MEDICARE (WNR) MEDICARE (M) PART A Feb 17, 2003 PART A [id number] HOLLIE SHEPHERD PATIENT MEDICARE (WNR) MEDICARE (M) PART B Feb 17, 2003 PART B [id number] [phone] HOLLIE SHEPHERD PATIENT MEDICARE (WNR) MEDICARE (M) PART A Feb 17, 2003 PART A [id number] HOLLIE SHEPHERD PATIENT MEDICARE (WNR) MEDICARE (M) PART B Feb 17, 2003 PART B [id number] HOLLIE SHEPHERD PATIENT Selected Encounter This section includes the information on record at [place] for the Encounter. Date/Time Encounter Type Encounter Description Reason Provider Source Jul 15, 2024 09:19 AM SYNCH AUDIO-ONLY EST SF 10 TELEPHONE/MEDICIN E ICD-10-CM E11.8 Type 2 diabetes mellitus with unspecified complications ALLIE CUELLO Mikey Encounter Template Text not used by [facility] Assessments - Encounter Diagnoses This section includes the primary and secondary diagnoses documented for the Encounter. Date/Time Primary/Secondary Diagnosis Diagnosis Name Provider Source Jul 15, 2024 09:19 AM PRIMARY Type 2 diabetes mellitus with unspecified complications ALLIE CUELLO [facility] [place] [facility] Plan of Treatment: Future Appointments (+ 6 months) and Future Tests (+/- 45 days) The Plan of Treatment section includes future care activities for the patient from all [facility]. This section includes future appointments and future orders which are active, pending or scheduled. Future Appointments This section includes appointments that were scheduled to occur 6 months from the date of the Encounter, up to a maximum of 20 appointments. The data comes from all [place] treatment facilities. Appointment Date/Time Appointment Type Appointme nt Facility Name Aug 01, 2024 11:00 AM AMBULATORY [facility] MEDICINE [facility] [place] [facility] Aug 06, 2024 10:00 AM AMBULATORY - MEDICINE [facility] [place] [facility] Aug 22, 2024 11:00 AM AMBULATORY - MEDICINE [facility] [place] [facility] Sep 27, 2024 11:00 AM AMBULATORY - PSYCHIATRY [facility] [place] [facility] Oct 02, 2024 12:00 PM AMBULATORY - PS[place]CHIATRY [place] [facility] Oct 02, 2024 12:00 PM AMBULATORY - PSYCHIATRY [facility] [place] [facility] Oct 03, 2024 02:00 PM AMBULATORY - MEDICINE [facility] [place] [facility] Nov 27, 2024 11:00 AM AMBULATORY - MEDICINE [facility] [place] [facility] Active, Pending, and Scheduled Orders This [...] 11:25 AM Consult Order COMMUNITY CARE-UROLOGY Cons [facility] [place] [facility] Jun 17, 2024 12:00 AM Laboratory - Chemistry Order IRON & TIBC PANEL BLOOD (SST-SERUM) SP [facility] [place] [facility] Jun 17, 2024 12:00 AM Laboratory - Chemistry Order FERRITIN BLOOD (SST-SERUM) [facility] [place] [facility] Jun 17, 2024 11:31 AM Consult Order OTOLARYNGOLOGY/ENT ONE Cons [facility] [place] [facility] Jul 05, 2024 09:52 AM Consult Order COMMUNITY CARE-RHEUMATOLOGY Cons [facility] Jul 24, 2024 12:00 AM Laboratory - Chemistry Order FERRITIN BLOOD (SST-SERUM) [facility] Jul 24, 2024 12:00 AM Laboratory - Chemistry Order IRON & TIBC PANEL BLOOD (SST-SERUM) [facility] Jul 24, 2024 12:00 AM Laboratory - Chemistry Order CBC AND DIFF (AUTO) BLOOD (LAV-BLOOD) [facility] Jul 24, 2024 12:00 AM Laboratory - Chemistry Order LIVER FUNCTION BLOOD (S[facility]SERUM) [facility] Jul 24, 2024 12:00 AM Laboratory - Chemistry Order BASIC METABOLIC PANEL (fasting) BLOOD (SST-SERUM) [facility] Jul 29, 2024 10:16 AM Consult Order PSYCHIATRIC MEDICATION BHIP/NHM OUTPT Cons [facility] Aug 22, 2024 12:00 AM Laboratory - Chemistry Order OSMOLALITY (SERUM) BLOOD (SST-SERUM) SP [facility] Aug 22, 2024 12:00 AM Laboratory - Chemistry Order CALCIUM BLOOD (SST-SERUM) SP [facility] Aug 22, 2024 12:00 AM Laboratory - Chemistry Order VITAMIN D (25-OH) BLOOD (SST-SERUM) SP [facility] Aug 22, 2024 12:00 AM Laboratory - Chemistry Order HEMOGLOBIN A1C PANEL BLOOD (LAV-BLOOD) [facility] Aug 22, 2024 12:00 AM Laboratory - Chemistry Order MICROALBUMIN CREATININE RATIO PANEL URINE (RANDOM) SP [facility] Aug 22, 2024 12:00 AM Laboratory - Chemistry Order BASIC METABOLIC PANEL (non-fasting) BLOOD (SST-SERUM) [facility] Lab Results: +/- 30 days of [...] - Unit Interpretation Reference Range Comment Jun 17, 2024 12:15 PM [facility] FERRITIN Specimen Type: SERUM No comment entered. Ordering Provider: JACINTO CAI Report Released Date/Time: Jun 17, 2024 11:07 AM Reporting Lab: [address] [id number] Performing Lab: [address] [address] FERRITIN 37 ng/mL 20-300 Jun 17, 2024 12:15 PM [facility] IRON & TIBC PANEL Specimen Type: SERUM No comment entered. Ordering Provider: JACINTO CAI Report Released Date/Time: Jun 17, 2024 11:07 AM Reporting Lab: [address] [address] Performing Lab: [address] [address] TIBC 374 ug/dL 204-475 IRON 172 ug/dL H 40-160 Transferrin Saturation 46.0 20.0-50.0 Transferrin (TRF) 283 mg/dL 200-360 Jun 17, 2024 12:15 PM [facility] CBC AND DIFF (AUTO) Specimen Type: BLOOD No comment entered. Ordering Provider: JACINTO CAI Report Released Date/Time: Jun 17, 2024 11:07 AM Reporting Lab: [address] [phone] Performing Lab: [address] [address] WBC 4.91 10*3/uL 4.50-11.00 RBC 4.38 10*6/uL 4.23-5.66 HGB 13.2 g/dL 12.8-17 HCT 39.7 39.2-50.4 MCV 90.6 fL 82-99 MCHC 33.2 g/dL 30.8-35.1 PLT 112 10*3/uL L 140-360 RDW-CV 14.0 12.0-16.0 MONO, ABS 1.09 10*3/uL 0.30-1.10 MCH 30.1 pg 26.2-32.6 NEUT % 53.4 43.7-75.8 LYMPH % 23.0 14.0-42.3 MONO % 22.2 H 5.1-13.7 EOS % 0.6 0.4-6.8 BASO % 0.6 0.1-2.0 NEUT, ABS 2.62 10*3/uL 2.20-7.60 LYMPH, ABS 1.13 10*3/uL 1.00-3.20 EOS, ABS 0.03 10*3/uL 0.03-0.44 BASO, ABS 0.03 10*3/uL 0.01-0.13 IMMATURE GRAN % 0.2 0.0-0.7 IMMATURE GRAN, ABS 0.01 10*3/uL 0.00-0.06 NRBC % 0.0 0.0-0.0 NRBC, ABS 0.00 10*3/uL 0.00-0.00 Social History: Smoking Status (Most current) and [...] took place. Date/Time Current Smoking Status Comment [facility] it Jun 17, 2024 10:31 AM VA-TOBACCO USE FOR TAMMY CIGARETTES [facility] Tobacco Use History This section includes a history of the smoking, or tobacco-related health factors, that were collected on or before the date of the Encounter. The data comes from the [place] facility where the Encounter took place. Date/Time Smoking Status/Tobac co Use Comment Facility Jun 17, 2024 10:31 AM VA-TOBACCO USE FOR[facility] CIGARETTES [facility] Jun 05, 2023 11:00 AM VA-TOBACCO FORMER USER [facility] Jun 05, 2023 11:00 AM VA-TOBACCO QUIT [...] < 15 YRS [facility] [place] [facility] May 22, 2020 03:30 PM VA-TOBACCO NEVER USED [facility] [place] [facility] May [...] 7 YEARS AGO [facility] [place] [facility] Advance [...] Jun 02, 2023 ADVANCE DIRECTIVE [facility] Radiology Reports: +/- 30 days of [...] treatment facilities. Date/Time Radiology Report Provider Source Jun 17, 2024 11:[address] ABDOMEN AND PEL VIS WITH CONTRAST: BEBO SHEPHERD [id number] M Exm Date: JUN 17, 2024@11:32 Req Phys: TOÑO CAI Loc: [facility]/NO/PACT 3 (Req'g Loc) Img Loc: [facility]/CT Service: Unknown [facility] [place] [address] (Case [id number] COMPLETE) CT ABDOMEN AND PELVIS WITH CONTRA(CT Detailed) CPT:46572 Contrast Media : Non-ionic Iodinated Reason for Study: Diverticulitis? Clinical History: 84 yo male reports a few weeks of L>R mid abdominal pain,. Had one day of nonbloody diarrhea a week ago. PSH of Appy and Clau decades ago. Colonoscopy is up to date, routinely due next year. Please mind the insulin pump? Labs today. Report Status: Verified Date Reported: JUN 17, 2024 Date Verified: JUN 17, 2024 Tipple Tender E-Sig:/ES/EVGENY IGNACIO Report: Exam: CT of abdomen and pelvis with contrast obtained on 06/17/2024 at 11:32 AM. CLINICAL HISTORY: Left greater than right lower to mid abdominal pain. INTRAVENOUS CONTRAST: 100 mL Omnipaque-350 ORAL CONTRAST: None. TECHNIQUE: Helical acquisition used to create contrast enhanced axial CT images through the abdomen and pelvis. Iterative reconstructive techniques used to create coronal and sagittal reformatted images for improve diagnostic accuracy with reduced radiation exposure. COMPARISON: None. FINDINGS Lower chest: No focal airspace disease or nodule. Mild subpleural scarring and thickening of the interstitium without definitive fibrosis. Status post aortic valve replacement. Mitral annular calcifications are present. Liver: Normal parenchymal attenuation with no focal pathological lesions. Gallbladder and biliary tree: Status post cholecystectomy with moderate intra and extrahepatic biliary duct dilation. No obstructing lesions seen in pancreatic head or at duodenum. Pancreas: Mostly fatty replaced. No ductal dilation or mass. Spleen: No splenomegaly or solid lesions. Kidneys: Normal with no stones, hydronephrosis, or solid lesions. Adrenal Glands: Normal appearing with no masses or nodules. GI tract: Significantly increased colonic stool volume. No bowel wall thickening, mass, or CT evidence for obstruction. Small bowel loops are relatively normal appearing. Lymph nodes and peritoneal spaces: No adenopathy or ascites. Bones: Significant degenerative changes as well as orthopedic hardware is affecting bilateral posterior lumbar fusion extending from L2 through S1. No hardware complication. No acute fractures. Vessels: Significant atherosclerosis. No aneurysm. Probable high-grade stenosis at origin of superior mesenteric artery. Possible high-grade stenosis at origin of left renal artery. Abdominal Wall: There is a fat-containing right-sided Spigelian hernia. PELVIS Bladder: Normal with no focal wall thickening, intraluminal mass, or stone. Genital Tract: Normal. Intrapelvic, Small and Large Bowel: Increased colonic stool volume. Diverticulosis without diverticulitis. Lymph nodes and peritoneal space: No lymphadenopathy or ascites. Bones: Moderate degenerative changes of bilateral hips, left worse than right. No fractures or pathological lesions. Body wall: No hernias, lymphadenopathy, or soft tissue lesions. Impression: 1. Increased colonic stool volume with no diverticulitis or active inflammatory disease. 2. Peripheral arterial disease with high-grade stenoses at the origin of the superior mesenteric and left renal arteries. Primary Diagnostic Code: No immediate attention required Primary Interpreting Staff: EVGENY IGNACIO Staff Physician (Tipple Tender) /EVGENY SINGH [facility] Encounter Notes: All associated encounter notes This section contains the clinical notes associated to the Encounter. Date/Time Encounter Note(s) Provider Source Jul 15, 2024 09:19 AM PHYSICIAN NOTE: LOCAL TITLE: NOTE STANDARD TITLE: PHYSICIAN NOTE DATE OF NOTE: JUL 15, 2024@09:19 ENTRY DATE: JUL 15, 2024@09:19:25 AUTHOR: ALLIE CUELLO COSIGNER: URGENCY: STATUS: COMPLETED DM 2 Spoke with patient. In Rehab, recovering from abdominal surgery, removal of 4 inches of intestine. Eating well. He has been using an insulin pump. He is currently using this at rehab to manage his DM. He needs insulin supplies. He has enough for one more site change. Endocrine RN will pickle solution maker supplies and bring them. He has a tandem T:slim and [facility] NFRs placed. 15 min telephone encounter /thomas/ ALLIE CUELLO MD STAFF PHYSICIAN Signed: 07/15/2024 09:34 Receipt Acknowledged By: 07/16/2024 12:46 /es/ GABY ARIAS RN 07/15/2024 11:01 /es/ Toño Benjamin DNP, PRODUCT ANALYST-BC, CNL Primary Care Nurse Practitioner for ALLIE CHRISTIANSEN [facility]
--- OUTSIDE RECORDS SUMMARY | 2024-07-31 14:45 | XMS_ITS | Clinical Summary ---
Author Organization Unknown Care Team Providers Care Betting Clerks Name Role Phone JOSSUE BELTRAN, JUAN Unavailable Unavaila freddy HAM RN, KADEN Unavailable Unavailable ZEFERINO FILM AND VIDEO GRAPHICS DESIGNER, ROSEANN Unavailable Unavailabl maricel HARRISON PT, RAMBO Unavailable Unavailable AYSHA OT, SONIA Unavailable Unavailabl e HAIM SHIPPING AND RECEIVING ASSISTANT, RAMBO Unavailable Unavailable Payers Payer Name Policy Type Policy Number Effective Date Expira tion Date MEDICARE.NGS.PDGM [id number] Problems Condition Name Condition Details Condition Category Status Onset Date Resolution Date Last Treatment Date Treating Clinician Comments ENCNTR FOR SURGICAL AFTCR FOLLOWING SURGERY ON THE DGSTV SYS Active 07-24 00:00: 00 ESSENTIAL (PRIMARY) HYPERTENSION Active 07-24 00:00: 00 ATHEROSCLERO SIS OF RENAL ARTERY Active 07-24 00:00: 00 ATHSCL HEART DISEASE OF [place] CORONARY ARTERY W/O ANG PCTRS Active 07-24 00:00: 00 RHEUMATOID ARTHRITIS, UNSPECIFIED Active 07-24 00:00: 00 POLYMYALGIA RHEUMATICA Active 07-24 00:00: 00 BENIGN PROSTATIC HYPERPLASIA WITHOUT LOWER URINRY TRACT SYMP Active 2- 00:00: 00 OCCLUSION AND STENOSIS OF LEFT VERTEBRAL ARTERY Active 07-24 00:00: 00 CELIAC ARTERY COMPRESSION SYNDROME Active 07-24 00:00: 00 HYPERLIPIDEM IA, UNSPECIFIED Active 2- 00:00: 00 TYPE 2 DIABETES MELLITUS WITH DIABETIC NEUROPATHY, UNSP Active 2- 00:00: 00 OTHER HYPERLIPIDEM IA Active 2- 00:00: 00 CHRONIC VASCULAR DISORDERS OF INTESTINE Active 2- 00:00: 00 OVERWEIGHT Active 07-24 00:00: 00 GASTRO-ESOPH AGEAL REFLUX DISEASE WITHOUT ESOPHAGITIS Active 07-24 00:00: 00 VERTIGO OF CENTRAL ORIGIN Active 07-24 00:00: 00 BODY MASS INDEX [BMI] 26.0-26.9, ADULT Active 07-24 00:00: 00 PERSONAL HISTORY OF MALIGNANT NEOPLASM OF THYROID Active 07-24 00:00: 00 PRESENCE OF INSULIN PUMP (EXTERNAL) (INTERNAL) Active 07-24 00:00: 00 PERFORATION OF INTESTINE (NONTRAUMATI C) Active 07-26 00:00: 00 Allergies, Adverse Reactions, Alerts Allergy Name Allergy Type Status Severity Reaction(s) Onset Date Inactive Date Treating Clinician Comments PENICILLINS Propensity to adverse reactions Active 07-24 11:41: 11 ZOSYN Propensity to adverse reactions Active 07-24 11:41: 18 Vital Signs Vital Name Observation Time Observation Value Commen ts Temperature 2024-07-26 14:45:00.000 97.6 [degF] Temperature 2024-07-24 12:07:00.000 97.1 [degF] BMI (%) 2024-07-24 11:15:47.000 25 kg/m2 Height 2024-07-24 11:15:23.000 67 [in_us] Pulse 2024-07-26 14:45:00.000 71 /min Pulse 2024-07-24 12:07:00.000 90 /min O2 Saturation (%) 2024-07-26 14:45:00.000 97 % O2 Saturation (%) 2024-07-24 12:07:00.000 98 % Respirations 2024-07-26 14:45:00.000 18 /min Respirations 2024-07-24 12:07:00.000 18 /min Weight (lbs) 2024-07-24 11:15:47.000 164 [lb_av] Systolic Blood Pressure 2024-07-26 14:45:00.000 132 mm [Hg] Systolic Blood Pressure 2024-07-24 12:07:00.000 140 mm [Hg] Diastolic Blood Pressure 2024-07-26 14:45:00.000 72 mm [Hg] Diastolic Blood Pressure 2024-07-24 12:07:00.000 74 mm [Hg] Plan of Treatment Planned Activity Planned Date Details Comments Future Scheduled Test PHYSICAL T HERAPIST TO EVALUATE FOR STRENGTHENING AND EDUCATION [code = PHYSICAL THERAPIST TO EVALUATE FOR STRENGTHENING AND EDUCATION ] Future Scheduled Test OCCUPATION AL THERAPIST TO EVALUATE FOR ADLS AND EDUCATION [code = OCCUPATIONAL THERAPIST TO EVALUATE FOR ADLS AND EDUCATION ] Future Scheduled Test MEDICATION MANAGEMENT; RN/FILM AND VIDEO GRAPHICS DESIGNER/CAN FILLING MACHINE OPERATOR TO REVIEW MEDICATIONS FOR INTERACTIONS, EFFECTIVENESS OF DRUG THERAPY, AND SIGNS/SYMPTOMS OF ADVERSE REACTIONS. MAY INSTRUCT AND REINFORCE MEDICATION TEACHING RELATED TO THE USE OF MEDICATIONS, DOSAGE, FREQUENCY, PURPOSE, SIDE EFFECTS, AND TO REPORT COMPLICATIONS. [code = MEDICATION MANAGEMENT; RN/FILM AND VIDEO GRAPHICS DESIGNER/CAN FILLING MACHINE OPERATOR TO REVIEW MEDICATIONS FOR INTERACTIONS, EFFECTIVENESS OF DRUG THERAPY, AND SIGNS/SYMPTOMS OF ADVERSE REACTIONS. MAY INSTRUCT AND REINFORCE MEDICATION TEACHING RELATED TO THE USE OF MEDICATIONS, DOSAGE, FREQUENCY, PURPOSE, SIDE EFFECTS, AND TO REPORT COMPLICATIONS.] Future Scheduled Test FALL REDUC TION MANAGEMENT; RN TO ASSESS AND OBSERVE, FILM AND VIDEO GRAPHICS DESIGNER/CAN FILLING MACHINE OPERATOR TO OBSERVE FALL RISK FACTORS AND EDUCATE PATIENT/CAREGIVER ON STRATEGIES TO MINIMIZE THE RISK OF FALLING. [code = FALL REDUCTION MANAGEMENT; RN TO ASSESS AND OBSERVE, FILM AND VIDEO GRAPHICS DESIGNER/CAN FILLING MACHINE OPERATOR TO OBSERVE FALL RISK FACTORS AND EDUCATE PATIENT/CAREGIVER ON STRATEGIES TO MINIMIZE THE RISK OF FALLING.] Future Scheduled Test DIABETES M ANAGEMENT; RN TO ASSESS AND TEACH, CAN FILLING MACHINE OPERATOR/FILM AND VIDEO GRAPHICS DESIGNER TO OBSERVE AND TEACH INSTRUCTIONS OF DIABETIC CARE TO INCLUDE: DIET DIABETIC,CARB CONTROLLED SKIN CARE, SIGNS AND SYMPTOMS OF HYPO/HYPERGLYCEMIA, PROPER ADMINISTRATION OF DIABETIC MEDICATION. RN/CAN FILLING MACHINE OPERATOR/FILM AND VIDEO GRAPHICS DESIGNER TO INSTRUCT ON DIABETIC FOOT CARE AND MONITOR FOR SKIN LESIONS ON LOWER EXTREMITIES. BLOOD GLUCOSE TESTING 4 TIMES DAILY. RN TO ASSESS AND TEACH, CAN FILLING MACHINE OPERATOR/FILM AND VIDEO GRAPHICS DESIGNER TO OBSERVE AND TEACH PATIENT/CAREGIVER ABILITY TO PERFORM AND RECORD BLOOD GLUCOSE TESTING ORDERED AND TO REPORT ABNORMAL FINDINGS TO PHYSICIAN. RN/CAN FILLING MACHINE OPERATOR/FILM AND VIDEO GRAPHICS DESIGNER MAY PERFORM BLOOD GLUCOSE TEST NEEDED. RN/CAN FILLING MACHINE OPERATOR/FILM AND VIDEO GRAPHICS DESIGNER TO REPORT TO PHYSICIAN BLOOD GLUCOSE READINGS GREATER THAN 350 OR LESS THAN 70. PATIENT TO USE DEXCOM G7 WTH TANDEM INSULING PUMP. REPORT PUMP FAILURES TO CLINICIAN. RN/CAN FILLING MACHINE OPERATOR/FILM AND VIDEO GRAPHICS DESIGNER TO INSTRUCT PATIENT ON IMPORTANCE OF HGBA1C MONITORING, KIDNEY FUNCTION TEST, EYE AND FOOT EXAMS. [code = DIABETES MANAGEMENT; RN TO ASSESS AND TEACH, CAN FILLING MACHINE OPERATOR/FILM AND VIDEO GRAPHICS DESIGNER TO OBSERVE AND TEACH INSTRUCTIONS OF DIABETIC CARE TO INCLUDE: DIET DIABETIC,CARB CONTROLLED SKIN CARE, SIGNS AND SYMPTOMS OF HYPO/HYPERGLYCEMIA, PROPER ADMINISTRATION OF DIABETIC MEDICATION. RN/CAN FILLING MACHINE OPERATOR/FILM AND VIDEO GRAPHICS DESIGNER TO INSTRUCT ON DIABETIC FOOT CARE AND MONITOR FOR SKIN LESIONS ON LOWER EXTREMITIES. BLOOD GLUCOSE TESTING 4 TIMES DAILY. RN TO ASSESS AND TEACH, CAN FILLING MACHINE OPERATOR/FILM AND VIDEO GRAPHICS DESIGNER TO OBSERVE AND TEACH PATIENT/CAREGIVER ABILITY TO PERFORM AND RECORD BLOOD GLUCOSE TESTING ORDERED AND TO REPORT ABNORMAL FINDINGS TO PHYSICIAN. RN/CAN FILLING MACHINE OPERATOR/FILM AND VIDEO GRAPHICS DESIGNER MAY PERFORM BLOOD GLUCOSE TEST NEEDED. RN/CAN FILLING MACHINE OPERATOR/FILM AND VIDEO GRAPHICS DESIGNER TO REPORT TO PHYSICIAN BLOOD GLUCOSE READINGS GREATER THAN 350 OR LESS THAN 70. PATIENT TO USE DEXCOM G7 WTH TANDEM INSULING PUMP. REPORT PUMP FAILURES TO CLINICIAN. RN/CAN FILLING MACHINE OPERATOR/FILM AND VIDEO GRAPHICS DESIGNER TO INSTRUCT PATIENT ON IMPORTANCE OF HGBA1C MONITORING, KIDNEY FUNCTION TEST, EYE AND FOOT EXAMS.] Future Scheduled Test RN TO OBSE RVE, ASSESS, EVALUATE, AND DEVELOP AN INDIVIDUALIZED PLAN OF CARE. AGENCY MAY ACCEPT ORDERS FROM CONSULTING PHYSICIANS RN TO OBSERVE AND ASSESS, FILM AND VIDEO GRAPHICS DESIGNER/CAN FILLING MACHINE OPERATOR TO OBSERVE FOR RISK FOR FALLS AND INSTRUCT IN FALL PREVENTION, HOME SAFETY, MEDICATION MANAGEMENT, INFECTION PREVENTION, AND NUTRITION MANAGEMENT. RN/FILM AND VIDEO GRAPHICS DESIGNER/CAN FILLING MACHINE OPERATOR NURSE MAY PERFORM O2 SATURATION LEVEL ON ADMISSION AND PRN FOR RN TO ASSESS/FILM AND VIDEO GRAPHICS DESIGNER TO OBSERVE PATIENT, WITH NOTIFICATION TO THE PHYSICIAN IF SATURATION IS 90% IN THE ABSENCE OF MORE SPECIFIC PARAMETERS FROM THE PHYSICIAN. AGENCY MAY PERFORM A RESUMPTION OF CARE VISIT FOLLOWING ANY HOSPITAL ADMISSION. RN/FILM AND VIDEO GRAPHICS DESIGNER/CAN FILLING MACHINE OPERATOR TO MONITOR CO-MORBID CONDITIONS LISTED ON THE PLAN OF CARE AND ANY NEW CONDITIONS THAT PRESENT THEMSELVES DURING THIS EPISODE TO IDENTIFY CHANGES AND INTERVENE TO MINIMIZE COMPLICATIONS. [code = RN TO OBSERVE, ASSESS, EVALUATE, AND DEVELOP AN INDIVIDUALIZED PLAN OF CARE. AGENCY MAY ACCEPT ORDERS FROM CONSULTING PHYSICIANS RN TO OBSERVE AND ASSESS, FILM AND VIDEO GRAPHICS DESIGNER/CAN FILLING MACHINE OPERATOR TO OBSERVE FOR RISK FOR FALLS AND INSTRUCT IN FALL PREVENTION, HOME SAFETY, MEDICATION MANAGEMENT, INFECTION PREVENTION, AND NUTRITION MANAGEMENT. RN/FILM AND VIDEO GRAPHICS DESIGNER/CAN FILLING MACHINE OPERATOR NURSE MAY PERFORM O2 SATURATION LEVEL ON ADMISSION AND PRN FOR RN TO ASSESS/FILM AND VIDEO GRAPHICS DESIGNER TO OBSERVE PATIENT, WITH NOTIFICATION TO THE PHYSICIAN IF SATURATION IS 90% IN THE ABSENCE OF MORE SPECIFIC PARAMETERS FROM THE PHYSICIAN. AGENCY MAY PERFORM A RESUMPTION OF CARE VISIT FOLLOWING ANY HOSPITAL ADMISSION. RN/FILM AND VIDEO GRAPHICS DESIGNER/CAN FILLING MACHINE OPERATOR TO MONITOR CO-MORBID CONDITIONS LISTED ON THE PLAN OF CARE AND ANY NEW CONDITIONS THAT PRESENT THEMSELVES DURING THIS EPISODE TO IDENTIFY CHANGES AND INTERVENE TO MINIMIZE COMPLICATIONS.] Future Scheduled Test GASTROINTE STINAL MANAGEMENT; RN TO ASSESS AND TEACH, CAN FILLING MACHINE OPERATOR/FILM AND VIDEO GRAPHICS DESIGNER TO OBSERVE AND TEACH RELATED TO ALTERED GASTROINTESTINAL STATUS TO MINIMIZE COMPLICATIONS AND REDUCE HOSPITALIZATION. [code = GASTROINTESTINAL MANAGEMENT; RN TO ASSESS AND TEACH, CAN FILLING MACHINE OPERATOR/FILM AND VIDEO GRAPHICS DESIGNER TO OBSERVE AND TEACH RELATED TO ALTERED GASTROINTESTINAL STATUS TO MINIMIZE COMPLICATIONS AND REDUCE HOSPITALIZATION.] Future Scheduled Test PAIN MANAG EMENT; RN TO ASSESS AND TEACH, CAN FILLING MACHINE OPERATOR/FILM AND VIDEO GRAPHICS DESIGNER TO OBSERVE AND TEACH AND PROVIDE EDUCATION ON PAIN MANAGEMENT TECHNIQUES. [code = PAIN MANAGEMENT; RN TO ASSESS AND TEACH, CAN FILLING MACHINE OPERATOR/FILM AND VIDEO GRAPHICS DESIGNER TO OBSERVE AND TEACH AND PROVIDE EDUCATION ON PAIN MANAGEMENT TECHNIQUES.] Future Scheduled Test RISK FOR H OSPITALIZATION; RN TO ASSESS/TEACH, CAN FILLING MACHINE OPERATOR/FILM AND VIDEO GRAPHICS DESIGNER TO OBSERVE/TEACH PATIENT/CAREGIVER ON RISK FOR HOSPITALIZATION/EMERGENCY ROOM VISITS, TEACH SIGNS AND SYMPTOMS THAT PUT PATIENT AT RISK, WHEN TO NOTIFY NURSE/PHYSICIAN OF COMPLICATIONS/DECLINE, AND WHEN TO CALL 911. [code = RISK FOR HOSPITALIZATION; RN TO ASSESS/TEACH, CAN FILLING MACHINE OPERATOR/FILM AND VIDEO GRAPHICS DESIGNER TO OBSERVE/TEACH PATIENT/CAREGIVER ON RISK FOR HOSPITALIZATION/EMERGENCY ROOM VISITS, TEACH SIGNS AND SYMPTOMS THAT PUT PATIENT AT RISK, WHEN TO NOTIFY NURSE/PHYSICIAN OF COMPLICATIONS/DECLINE, AND WHEN TO CALL 911.] Future Scheduled Test CARDIOVASC ULAR SYSTEM; RN TO ASSESS/TEACH, FILM AND VIDEO GRAPHICS DESIGNER/CAN FILLING MACHINE OPERATOR TO OBSERVE/TEACH RELATED TO ALTERED CARDIOVASCULAR STATUS TO MINIMIZE COMPLICATIONS AND REDUCE HOSPITALIZATION. [code = CARDIOVASCULAR SYSTEM; RN TO ASSESS/TEACH, FILM AND VIDEO GRAPHICS DESIGNER/CAN FILLING MACHINE OPERATOR TO OBSERVE/TEACH RELATED TO ALTERED CARDIOVASCULAR STATUS TO MINIMIZE COMPLICATIONS AND REDUCE HOSPITALIZATION.] Future Scheduled Test HYPERTENSI ON MANAGEMENT; RN TO ASSESS AND TEACH, FILM AND VIDEO GRAPHICS DESIGNER/CAN FILLING MACHINE OPERATOR TO OBSERVE AND TEACH WARNING SIGNS AND SYMPTOMS TO AVOID HOSPITALIZATION. [code = HYPERTENSION MANAGEMENT; RN TO ASSESS AND TEACH, FILM AND VIDEO GRAPHICS DESIGNER/CAN FILLING MACHINE OPERATOR TO OBSERVE AND TEACH WARNING SIGNS AND SYMPTOMS TO AVOID HOSPITALIZATION.] Future Scheduled Test SKIN INTEG RITY RN TO ASSESS AND TEACH, FILM AND VIDEO GRAPHICS DESIGNER/CAN FILLING MACHINE OPERATOR TO OBSERVE AND TEACH INTEGUMENTARY STATUS TO IDENTIFY CHANGES AND INTERVENE TO MINIMIZE COMPLICATIONS. PROVIDE SKILLED TEACHING OF GENERAL WOUND AND SKIN CARE AND PREVENTION RELATED TO POTENTIAL ALTERED SKIN INTEGRITY [code = SKIN INTEGRITY RN TO ASSESS AND TEACH, FILM AND VIDEO GRAPHICS DESIGNER/CAN FILLING MACHINE OPERATOR TO OBSERVE AND TEACH INTEGUMENTARY STATUS TO IDENTIFY CHANGES AND INTERVENE TO MINIMIZE COMPLICATIONS. PROVIDE SKILLED TEACHING OF GENERAL WOUND AND SKIN CARE AND PREVENTION RELATED TO POTENTIAL ALTERED SKIN INTEGRITY ] Future Scheduled Test AGENCY MAY PERFORM A RESUMPTION OF CARE VISIT FOLLOWING ANY HOSPITAL ADMISSION. OT TO EVALUATE, OBSERVE / ASSESS, AND MONITOR, CARDROOM HAND TO OBSERVE AND MONITOR, PROVIDE SKILLED THERAPEUTIC INTERVENTION, ACTIVITY, EDUCATION, AND TRAINING TO ADDRESS; DRESSING (OT/CARDROOM HAND) ACTIVITIES OF DAILY LIVING (OT/SANJUANA) TOILET TRANSFER (OT/SANJUANA) HOME ACTIVITY / EXERCISE PROGRAM (OT/CARDROOM HAND) ENERGY CONSERVATION/ACTIVITY DEMAND (OT/SANJUANA) OT/SANJUANA TO MONITOR AND EDUCATE ON OXYGEN SATURATION DURING ADLS/IADLS, NOTIFY PHYSICIAN AND/OR THE RN CLINICAL RN PALLIATIVE CARE FOR PHYSICIAN NOTIFICATION AND IF O2 SATS BELOW 90% AFTER 10 MIN OF REST. OT/SANJUANA MAY EDUCATE ON PAIN MANAGEMENT CLINICALLY INDICATED, INCLUDING NON-PHARMACOLOGICAL PAIN REDUCTION TECHNIQUES AND USE OF CRYOTHERAPY OR HEAT UP TO 20 MIN AT A TIME FOR PAIN MANAGEMENT OF GENERAL PAIN OT / SANJUANA TO IDENTIFY FALL RISK FACTORS; EDUCATE THE PATIENT/CAREGIVER ON WAYS TO REDUCE FALL RISK FACTORS AND ESTABLISH HOME EXERCISE PROGRAM TO MINIMIZE FALL RISK. MAY TEACH THE PATIENT FLOOR RECOVERY WHEN CLINICALLY APPROPRIATE. [code = AGENCY MAY PERFORM A RESUMPTION OF CARE VISIT FOLLOWING ANY HOSPITAL ADMISSION. OT TO EVALUATE, OBSERVE / ASSESS, AND MONITOR, SANJUANA TO OBSERVE AND MONITOR, PROVIDE SKILLED THERAPEUTIC INTERVENTION, ACTIVITY, EDUCATION, AND TRAINING TO ADDRESS; DRESSING (OT/CARDROOM HAND) ACTIVITIES OF DAILY LIVING (OT/CARDROOM HAND) TOILET TRANSFER (OT/CARDROOM HAND) HOME ACTIVITY / EXERCISE PROGRAM (OT/SANJUANA) ENERGY CONSERVATION/ACTIVITY DEMAND (OT/CARDROOM HAND) OT/CARDROOM HAND TO MONITOR AND EDUCATE ON OXYGEN SATURATION DURING ADLS/IADLS, NOTIFY PHYSICIAN AND/OR THE RN CLINICAL RN PALLIATIVE CARE FOR PHYSICIAN NOTIFICATION AND IF O2 SATS BELOW 90% AFTER 10 MIN OF REST. OT/SANJUANA MAY EDUCATE ON PAIN MANAGEMENT CLINICALLY INDICATED, INCLUDING NON-PHARMACOLOGICAL PAIN REDUCTION TECHNIQUES AND USE OF CRYOTHERAPY OR HEAT UP TO 20 MIN AT A TIME FOR PAIN MANAGEMENT OF GENERAL PAIN OT / CARDROOM HAND TO IDENTIFY FALL RISK FACTORS; EDUCATE THE PATIENT/CAREGIVER ON WAYS TO REDUCE FALL RISK FACTORS AND ESTABLISH HOME EXERCISE PROGRAM TO MINIMIZE FALL RISK. MAY TEACH THE PATIENT FLOOR RECOVERY WHEN CLINICALLY APPROPRIATE.] Goal Patient Goal - B E ABLE TO WORK IN WORK SHOP AGAIN Goal Provider Goal - Goal Provider Goal - Goal Provider Goal - PATIENT/CAREGIVER TO VERBALIZE, AND CONSISTENTLY DEMONSTRATE EFFECTIVE, SAFE MANAGEMENT OF MEDICATION INCLUDING KNOWLEDGE OF EFFECTIVENESS, POTENTIAL SIDE EFFECTS AND DRUG REACTIONS AND WHEN TO CONTACT THE APPROPRIATE CARE PROVIDER. PATIENT/CAREGIVER WILL BE ABLE TO VERBALIZE UNDERSTANDING OF MEDICATION REGIMEN AND ACCURATELY TAKE MEDICATIONS PRESCRIBED WITHOUT ADVERSE EFFECTS BY EOE Goal Provider Goal - PATIENT/CAREGIVER WILL VERBALIZE/DEMONSTRATE UNDERSTANDING OF FALL RISK FACTORS AND IMPLEMENT STRATEGIES TO MINIMIZE FALL RISK. PATIENT/CAREGIVER WILL VERBALIZE/DEMONSTRATE AN ABILITY TO ADHERE TO FALL REDUCTION SELF-MANAGEMENT AND LIFE-STYLE CHANGES BY EOE Goal Provider Goal - PATIENT / CAREGIVER WILL VERBALIZE / DEMONSTRATE AN ABILITY TO ADHERE TO SELF-MANAGEMENT OF DIABETES MANAGEMENT BY EOE. Goal Provider Goal - A PLAN OF CARE WILL BE ESTABLISHED THAT MEETS THE PATIENTS NEEDS. PATIENT WILL DEMONSTRATE OXYGEN SATURATION WITHIN NORMAL LIMITS OR PATIENTS OPTIMAL LEVEL ESTABLISHED BY THE PHYSICIAN THROUGHOUT CARE. CHANGES TO CO-MORBID CONDITIONS AND ANY NEW CONDITIONS WILL BE IDENTIFIED AND REPORTED TO THE PHYSICIAN. Goal Provider Goal - PATIENT / CAREGIVER WILL VERBALIZE/DEMONSTRATE UNDERSTANDING OF MEASURES TO MANAGE ALTERED GASTROINTESTINAL STATUS BY END OF EPISODE. Goal Provider Goal - PATIENT / CAREGIVER WILL VERBALIZE / DEMONSTRATE UNDERSTANDING OF PAIN CONTROL MEASURES BY EOE Goal Provider Goal - PATIENT/CAREGIVER WILL VERBALIZE UNDERSTANDING OF SIGNS AND SYMPTOMS THAT PUT THE PATIENT AT RISK FOR HOSPITALIZATION /EMERGENCY ROOM VISITS, WHEN TO NOTIFY NURSE/PHYSICIAN OF COMPLICATIONS/DECLINE AND WHEN TO CALL 911. Goal Provider Goal - PATIENT / CAREGIVER WILL VERBALIZE/DEMONSTRATE UNDERSTANDING OF MEASURES TO MANAGE ALTERED CARDIOVASCULAR STATUS BY EOE Goal Provider Goal - PATIENT / CAREGIVER WILL VERBALIZE/DEMONSTRATE AN ABILITY TO ADHERE TO SELF-MANAGEMENT OF HTN TO MINIMIZE COMPLICATIONS AND AVOID HOSPITALIZATION BY END OF EPISODE. Goal Provider Goal - CHANGES IN SKIN INTEGRITY STATUS WILL BE IDENTIFIED AND REPORTED TO THE PHYSICIAN FOR PROMPT INTERVENTION. PATIENT / CAREGIVER WILL VERBALIZE/DEMONSTRATE ADEQUATE KNOWLEDGE OF INTEGUMENTARY STATUS AND APPROPRIATE MEASURES TO PROMOTE SKIN INTEGRITY AND PREVENT INJURY BY EOE Goal Provider Goal - OT STG: PATIENT WILL IMPROVE LB DRESSING TO SBA WITHIN 4 WEEKS OT LTG: PATIENT WILL DEMONSTRATE IMPROVED ABILITY TO PERFORM LOWER BODY DRESSING TO REDUCE CAREGIVER BURDEN FROM CGA TO INDEPENDENT WITHIN 6 WEEKS OT LTG: PATIENT WILL DEMONSTRATE IMPROVEMENT IN MODIFIED IRAM INDEX SCORE FROM 84 TO 95 INDICATING DECREASED DEPENDENCY ON CAREGIVER ASSISTANCE WITH ACTIVITIES OF DAILY LIVING WITHIN 6 WEEKS OT STG: PATIENT WILL IMPROVE TOILET TRANSFER TO SBA WITHIN 4 WEEKS OT LTG: PATIENT WILL DEMONSTRATE IMPROVED ABILITY TO PERFORM TOILET TRANSFERS TO REDUCE FALL RISK AND RISK OF INCONTINENCE AND UTI DEVELOPMENT FROM CGA TO INDEPENDENT WITHIN 6 WEEKS OT STG: PATIENT WILL IMPROVE BUE HEP TO MIN A WITHIN 4 WEEKS OT LTG: PATIENT WILL DEMONSTRATE IMPROVED STRENGTH/COORDINATION AND/OR DEXTERITY BUE FOR IMPROVED PARTICIPATION IN ADLS EVIDENCED BY IMPROVED TRANSFERS/ADLS FROM MOD A TO INDEPENDENT WITHIN 6 WEEKS OT STG: PATIENT WILL IMPROVE USE OF ENERGY CONSERVATION TECHNIQUES TO MIN A WITHIN 4 WEEKS OT LTG: PATIENT WILL DEMONSTRATE UNDERSTANDING OF ENERGY CONSERVATION MEASURES, EVIDENCED BY INCREASED ACTIVITY TOLERANCE FROM MOD A TO INDEPENDENT DURING ADLS/TRANSFERS WITHIN 6 WEEKS OT LTG: PATIENT WILL MAINTAIN OXYGEN SATURATION WITHIN PHYSICIAN ORDERED PARAMETERS THROUGHOUT THE EPISODE OF CARE. OT LTG: PATIENT WILL DEMONSTRATE UNDERSTANDING OF PAIN MANAGEMENT TECHNIQUES EVIDENCED BY REDUCED GENERAL PAIN 0/10 WITHIN 6 WEEKS OT LTG: PATIENT/CAREGIVER WILL BE ABLE TO IMPLEMENT RECOMMENDATIONS SPECIFIC TO FALL REDUCTION FOR IMPROVED ADL/IADL COMPLETION AND HOME SAFETY BY END OF EPISODE. OT LTG: PATIENT WILL BE INDEPENDENT WITH IMPLEMENTATION OF HEP WITHIN 6 WEEKS Encounters Start Date/Time End Date/Time Encounter Type Admission Type Attending [facility] Care Department Encounter ID Discharge Date Discharge Status Discharge Condition Discharge Reason Percent Goals Met 2024-07-24 00:00:00 2024-09-21 00:00:00 Outpatient NEW ADMISSION [facility] [id number] [id number]
--- OUTSIDE RECORDS SUMMARY | 2024-07-31 14:45 | XMS_ITS | Encounter Summary ---
Author Name [facility] [place] [facility] [place] Address [address] [place] [id number] Care Team Providers Care Theatrical Dresser Name Role Phone TOÑO PETER Primary Care [...] O MEDEX BRONZ E Mar 19, 2004 [id number] [phone] HOLLIE SHEPHERD [place] SUPPLEMEN MASTER MEDEX BRONZ E Mar 19, 2004 [id number] HOLLIE SHEPHER[place] SUPPLE[place] MASTER MEDEX BRONZ E Mar 19, 2004 [id number] [phone] HOLLIE SHEPHERD PATIENT BCBS [facility] MEDICARE SUPPLEMEN MASTER PSUED O MEDEX BRONZ E Mar 19, 2004 [id number] [phone] HOLLIE SHEPHERD PATIENT MEDICARE (WNR) MEDICARE (M) PART B Mar 19, 2004 PART B [id number] CORAHOLLIE SILVA PATIENT MEDICARE (WNR) MEDICARE (M) PART B Mar 19, 2004 PART B [id number] [phone] CORAHOLLIE SILVA PATIENT MEDICARE (WNR) MEDICARE (M) PART B Mar 19, 2004 PART B [id number] [phone] CORAHOLLIE SILVA PATIENT MEDICARE (WNR) MEDICARE (M) PART A Feb 17, 2003 PART A [id number] CORAHOLLIE SILVA PATIENT MEDICARE (WNR) MEDICARE (M) PART A Feb 17, 2003 PART A [id number] CORAHOLLIE SILVA PATIENT MEDICARE (WNR) MEDICARE (M) PART A Feb 17, 2003 PART A [id number] CORAHOLLIE SILVA PATIENT MEDICARE (WNR) MEDICARE (M) PART A Feb 17, 2003 PART A [id number] CORAHOLLIE SILVA PATIENT MEDICARE (WNR) MEDICARE (M) PART B Feb 17, 2003 PART B [id number] [phone] CORAHOLLIE SILVA PATIENT MEDICARE (WNR) MEDICARE (M) PART A Feb 17, 2003 PART A [id number] [phone] HOLLIE SHEPHERD PATIENT MEDICARE (WNR) MEDICARE (M) PART B Feb 17, 2003 PART B [id number] HOLLIE SHEPHERD PATIENT Selected Encounter This section includes the information on record at [place] for the Encounter. Date/Time Encounter Type Encounter Description Reason Provider Source Jul 29, 2024 01:44 PM HP OL DIG ASSMT&MGMT 5-10 CLINICAL PHARMACY ICD-10-CM K57.30 Dvrtclos of lg int w/o perforation or abscess w/o bleeding VALERIY FUNK Encounter Template Text not used by [place] Assessments - Encounter Diagnoses This section includes the primary and secondary diagnoses documented for the Encounter. Date/Time Primary/Secondary Diagnosis Diagnosis Name Provider Source Jul 29, 2024 01:44 PM PRIMARY Dvrtclos of lg int w/o perforation or abscess w/o bleeding TOÑO RAMOS [facility] Plan of Treatment: Future Appointments (+ 6 months) and Future Tests (+/- 45 days) The Plan of Treatment section includes future care activities for the patient from [facility] [place] [facility] This section includes future appointments and future orders which are active, pending or scheduled. Future Appointments This section includes appointments that were scheduled to occur 6 months from the date of the Encounter, up to a maximum of 20 appointments. The data comes from all [facility] facilities. Appointment Date/Time Appointment Type Appointme nt Facility Name Aug 01, 2024 11:00 AM AMBULATORY - MEDICINE [place] [facility] [place] [facility] Aug 06, 2024 10:00 AM AMBULATORY - MEDICINE [place] [facility] [place] [facility] Aug 22, 2024 11:00 AM AMBULATORY - MEDICINE [place] [facility] [place] [place] [facility] Sep 27, 2024 11:00 AM [facility] [place] [facility] Oct 02, 2024 12:00 PM AMBULATORY - [place]IATRY [place] [facility] Oct 02, 2024 12:00 PM AMBULATORY - PSYCHIATRY [place] [facility] [place] [facility] Oct 03, 2024 02:00 PM AMBULATORY - MEDICINE [facility] [place] [facility] Nov 27, 2024 11:00 AM AMBULATORY - MEDICINE [facility] [place] [facility] Active, Pending, [...] of theEncounter. The data comes from all [facility]. Test Date/Time Test Type Test Details Facility Name Jun 17, 2024 12:00 AM Laboratory - Chemistry Order FERRITIN BLOOD (SST-SERUM) [facility] [place] [facility] Jun 17, 2024 12:00 AM Laboratory - Chemistry Order IRON & TIBC PANEL BLOOD (SST-SERUM) [facility] [place] [facility] Jun 17, 2024 11:31 AM Consult Order OTOLARYNGOLOGY/ENT ONE Cons Mining Speculator's Choice [place] [facility] Jul 05, 2024 09:52 AM Consult Order COMMUNITY CARE-RHEUMATOLOGY Cons Mining Speculator's Choice [facility] Jul 24, 2024 12:00 AM Laboratory - Chemistry Order FERRITIN BLOOD (SST-SERUM) [facility] Jul 24, 2024 12:00 AM Laboratory - Chemistry Order IRON & TIBC PANEL BLOOD (SST-SERUM) [facility] Jul 24, 2024 12:00 AM Laboratory - Chemistry Order CBC AND DIFF (AUTO) BLOOD (LAV-BLOOD) [facility] Jul 24, 2024 12:00 AM Laboratory - Chemistry Order BASIC METABOLIC PANEL (fasting) BLOOD (SST-SERUM) [facility] Jul 24, 2024 12:00 AM Laboratory - Chemistry Order LIVER FUNCTION BLOOD (SST-SERUM) [facility] Jul 29, 2024 10:16 AM Consult Order PSYCHIATRIC MEDICATION BHIP/NHM OUTPT Cons Mining Speculator's Choice [facility] Aug 22, 2024 12:00 AM Laboratory - Chemistry Order BASIC METABOLIC PANEL (non-fasting) BLOOD (SST-SERUM) [facility] Aug 22, 2024 12:00 AM Laboratory - Chemistry Order HEMOGLOBIN A1C PANEL BLOOD (LAV-BLOOD) [facility] Aug 22, 2024 12:00 AM Laboratory - Chemistry Order CALCIUM BLOOD (SST-SERUM) [facility] Aug 22, 2024 12:00 AM Laboratory - Chemistry Order VITAMIN D (25-OH) BLOOD (SST-SERUM) [facility] Aug 22, 2024 12:00 AM Laboratory - Chemistry Order OSMOLALITY (SERUM) BLOOD (SST-SERUM) [facility] Aug 22, 2024 12:00 AM Laboratory - Chemistry Order MICROALBUMIN CREATININE RATIO PANEL URINE (RANDOM) [facility] Social History: Smoking Status (Most current) [...] took place. Date/Time Current Smoking Status Comment [facility] Jun 17, 2024 10:31 AM VA-TOBACCO NEVER U SED OTHER TYPE [place] [facility] [place] [facility] Tobacco Use History This section includes a history of the smoking, or tobacco-related health factors, that were collected on or before the date of the Encounter. The data comes from the [place] facility where the Encounter took place. Date/Time Smoking Status/Tobac co Use Comment Facility Jun 17, 2024 10:31 AM VA-TOBACCO USE FORMER CIGARETTES [place] [facility] [place] [facility] Jun 05, 2023 11:00 AM VA-TOBACCO FORMER USER [place] [facility] [place] [facility] Jun 05, 2023 11:00 AM VA-TOBACCO QUIT 15 YRS OR MORE [place] [facility] [place] [facility] Jun 06, 2022 01:00 PM VA-TOBACCO FORMER USER [place] [facility] [place] [facility] Jun 06, 2022 01:00 PM VA-TOBACCO QUIT 15 YRS OR MORE [place] [facility] [place] [facility] Jun 30, 2021 02:37 PM VA-TOBACCO FORMER USER [place] [facility] [place] [facility] Jun 30, 2021 02:37 PM VA-TOBACCO QUIT 5 TO < 15 YRS [place] [facility] [place] [facility] May 22, 2020 03:30 PM VA-TOBACCO NEVER USED [place] [facility] [place] [facility] May 08, 2018 02:03 PM VA-TOBACCO FORMER USER [place] [facility] [place] [facility] May 08, 2018 02:03 PM VA-TOBACCO QUIT 15 YRS OR MORE [place] [facility] [place] [facility] November 10, 2017 02:33 PM QUIT TOBACCO USE > 7 YEARS AGO [place] [facility] [place] [facility] October 21, 2016 01:55 PM QUIT TOBACCO USE > 7 YEARS AGO [place] [facility] [place] [facility] Sep 18, 2015 11:24 AM QUIT TOBACCO USE > 7 YEARS AGO stopped 50 years ago [facility] [place] [facility] May 19, 2005 08:01 AM [facility] May 31, 2004 01:02 PM [facility] Jun 04, 2003 07:57 AM [facility] Jun 03, 2002 01:11 PM HISTORY OF SMOKING [facility] Jun 03, 2002 01:11 PM QUIT TOBACCO USE > 7 YEARS AGO [facility] Advance Directives: All historical and current [...] Jun 02, 2023 ADVANCE DIRECTIVE JENNIFER QUIROS [facility] Encounter Notes: All associated encounter notes This section contains the clinical notes associated to the Encounter. Date/Time Encounter Note(s) Provider Source Jul 29, 2024 01:44 PM PHARMACY OUTPATIEN T MEDICATION MGT NOTE: LOCAL TITLE: [facility] PRESCRIPTION NOTE STANDARD TITLE: PHARMACY OUTPATIENT MEDICATION MGT NOTE DATE OF NOTE: JUL 29, 2024@13:44 ENTRY DATE: JUL 29, 2024@13:44:40 AUTHOR: TOÑO RAMOS COSIGNER: URGENCY: STATUS: COMPLETED Pharmacy has received a COMMUNITY CARE prescription. The prescription below CANNOT BE FILLED due to the absence of an active consult. PRESCRIPTIONS HAVE BEEN DISPOSED OF APPROPRIATELY BASED ON ROUTE RECEIVED, FOLLOWING LOCAL AND FEDERAL GUIDELINES. IF PRESCRIPTION IS NEEDED, PLEASE CONTACT PROVIDER/OFFICE LISTED. PHARMACY NO LONGER HAS PRESCRIPTION(S) AND ARE UNABLE TO PROVIDE. (copy and paste Rx from [employer]) eRx Drug : psyllium husk (with sugar) 3 gram/7 gram oral powder (Metamucil (with sugar)) eRx SIG : 1 tbsp orally daily qty: 822 refills: 1 Name of CC Provider: Kemi Pelaez Type of Community Care Provider: [address] [place] [address] P: [phone] Please re-write the above prescription for the OR input a new consult. IF A NEW CONSULT IS PLACED PLEASE: 1. Reach out to the [place] to have them get a new prescription, OR 2. Call the community care provider's office directly for them to resend Thank you /thomas/ TOÑO RAMOS [employer] Sales Representative Signed: 07/29/2024 13:47 Receipt Acknowledged By: 07/30/2024 15:17 /thomas/ Marisel Morris RN, BSN Primary Care Nurse Psychodramatist for VIJAYA KENDALL 07/30/2024 11:30 /thomas/ Toño Peter PA-C STAFF PHYSICIAN FLEXOGRAPHIC PRESS OPERATOR TOÑO RAMOS [facility]
--- OUTSIDE RECORDS SUMMARY | 2024-07-31 14:46 | XMS_ITS | Clinical Summary ---
Author Organization Unknown Care Team Providers Care Brake Mechanic Name Role Phone JOSSUE BELTRAN, JUAN Unavailable Unavaila freddy HAM RN, KADEN Unavailable Unavailable ZEFERINO POSSUM TRAPPER, ROSEANN Unavailable Unavailabl maricel HARRISON PT, RAMBO Unavailable Unavailable AYSHA OT, SONIA Unavailable Unavailabl e HAIM HARVESTING SUPERVISOR, RAMBO Unavailable Unavailable Payers Payer Name Policy Type Policy Number Effective Date Expira tion Date MEDICARE.NGS.PDGM [id number] Problems Condition Name Condition Details Condition Category Status Onset Date Resolution Date Last Treatment Date Treating Clinician Comments ENCNTR FOR SURGICAL AFTCR FOLLOWING SURGERY ON THE DGSTV SYS Active 07-24 00:00: 00 ESSENTIAL (PRIMARY) HYPERTENSION Active 07-24 00:00: 00 ATHEROSCLERO SIS OF RENAL ARTERY Active 07-24 00:00: 00 ATHSCL HEART DISEASE OF [place] CORONARY ARTERY W/O ANG PCTRS Active 07-24 [...] EDUCATION ] Future Scheduled Test MEDICATION MANAGEMENT; RN/POSSUM TRAPPER/LEVI MAKER TO REVIEW MEDICATIONS FOR INTERACTIONS, EFFECTIVENESS OF DRUG THERAPY, AND SIGNS/SYMPTOMS OF ADVERSE REACTIONS. MAY INSTRUCT AND REINFORCE MEDICATION TEACHING RELATED TO THE USE OF MEDICATIONS, DOSAGE, FREQUENCY, PURPOSE, SIDE EFFECTS, AND TO REPORT COMPLICATIONS. [code = MEDICATION MANAGEMENT; RN/POSSUM TRAPPER/LEVI MAKER TO REVIEW MEDICATIONS FOR INTERACTIONS, EFFECTIVENESS OF DRUG THERAPY, AND SIGNS/SYMPTOMS OF ADVERSE REACTIONS. MAY INSTRUCT AND REINFORCE MEDICATION TEACHING RELATED TO THE USE OF MEDICATIONS, DOSAGE, FREQUENCY, PURPOSE, SIDE EFFECTS, AND TO REPORT COMPLICATIONS.] Future Scheduled Test FALL REDUC TION MANAGEMENT; RN TO ASSESS AND OBSERVE, POSSUM TRAPPER/LEVI MAKER TO OBSERVE FALL RISK FACTORS AND EDUCATE PATIENT/CAREGIVER ON STRATEGIES TO MINIMIZE THE RISK OF FALLING. [code = FALL REDUCTION MANAGEMENT; RN TO ASSESS AND OBSERVE, POSSUM TRAPPER/LEVI MAKER TO OBSERVE FALL RISK FACTORS AND EDUCATE PATIENT/CAREGIVER ON STRATEGIES TO MINIMIZE THE RISK OF FALLING.] Future Scheduled Test DIABETES M ANAGEMENT; RN TO ASSESS AND TEACH, LEVI MAKER/POSSUM TRAPPER TO OBSERVE AND TEACH INSTRUCTIONS OF DIABETIC CARE TO INCLUDE: DIET DIABETIC,CARB CONTROLLED SKIN CARE, SIGNS AND SYMPTOMS OF HYPO/HYPERGLYCEMIA, PROPER ADMINISTRATION OF DIABETIC MEDICATION. RN/LEVI MAKER/POSSUM TRAPPER TO INSTRUCT ON DIABETIC FOOT CARE AND MONITOR FOR SKIN LESIONS ON LOWER EXTREMITIES. BLOOD GLUCOSE TESTING 4 TIMES DAILY. RN TO ASSESS AND TEACH, LEVI MAKER/POSSUM TRAPPER TO OBSERVE AND TEACH PATIENT/CAREGIVER ABILITY TO PERFORM AND RECORD BLOOD GLUCOSE TESTING ORDERED AND TO REPORT ABNORMAL FINDINGS TO PHYSICIAN. RN/LEVI MAKER/POSSUM TRAPPER MAY PERFORM BLOOD GLUCOSE TEST NEEDED. RN/LEVI MAKER/POSSUM TRAPPER TO REPORT TO PHYSICIAN BLOOD GLUCOSE READINGS GREATER THAN 350 OR LESS THAN 70. PATIENT TO USE DEXCOM G7 WTH TANDEM INSULING PUMP. REPORT PUMP FAILURES TO CLINICIAN. RN/LEVI MAKER/POSSUM TRAPPER TO INSTRUCT PATIENT ON IMPORTANCE OF HGBA1C MONITORING, KIDNEY FUNCTION TEST, EYE AND FOOT EXAMS. [code = DIABETES MANAGEMENT; RN TO ASSESS AND TEACH, LEVI MAKER/POSSUM TRAPPER TO OBSERVE AND TEACH INSTRUCTIONS OF DIABETIC CARE TO INCLUDE: DIET DIABETIC,CARB CONTROLLED SKIN CARE, SIGNS AND SYMPTOMS OF HYPO/HYPERGLYCEMIA, PROPER ADMINISTRATION OF DIABETIC MEDICATION. RN/LEVI MAKER/POSSUM TRAPPER TO INSTRUCT ON DIABETIC FOOT CARE AND MONITOR FOR SKIN LESIONS ON LOWER EXTREMITIES. BLOOD GLUCOSE TESTING 4 TIMES DAILY. RN TO ASSESS AND TEACH, LEVI MAKER/POSSUM TRAPPER TO OBSERVE AND TEACH PATIENT/CAREGIVER ABILITY TO PERFORM AND RECORD BLOOD GLUCOSE TESTING ORDERED AND TO REPORT ABNORMAL FINDINGS TO PHYSICIAN. RN/LEVI MAKER/POSSUM TRAPPER MAY PERFORM BLOOD GLUCOSE TEST NEEDED. RN/LEVI MAKER/POSSUM TRAPPER TO REPORT TO PHYSICIAN BLOOD GLUCOSE READINGS GREATER THAN 350 OR LESS THAN 70. PATIENT TO USE DEXCOM G7 WTH TANDEM INSULING PUMP. REPORT PUMP FAILURES TO CLINICIAN. RN/LEVI MAKER/POSSUM TRAPPER TO INSTRUCT PATIENT ON IMPORTANCE OF HGBA1C MONITORING, KIDNEY FUNCTION TEST, EYE AND FOOT EXAMS.] Future Scheduled Test RN TO OBSE RVE, ASSESS, EVALUATE, AND DEVELOP AN INDIVIDUALIZED PLAN OF CARE. AGENCY MAY ACCEPT ORDERS FROM CONSULTING PHYSICIANS RN TO OBSERVE AND ASSESS, POSSUM TRAPPER/LEVI MAKER TO OBSERVE FOR RISK FOR FALLS AND INSTRUCT IN FALL PREVENTION, HOME SAFETY, MEDICATION MANAGEMENT, INFECTION PREVENTION, AND NUTRITION MANAGEMENT. RN/POSSUM TRAPPER/LEVI MAKER NURSE MAY PERFORM O2 SATURATION LEVEL ON ADMISSION AND PRN FOR RN TO ASSESS/POSSUM TRAPPER TO OBSERVE PATIENT, WITH NOTIFICATION TO THE PHYSICIAN IF SATURATION IS 90% IN THE ABSENCE OF MORE SPECIFIC PARAMETERS FROM THE PHYSICIAN. AGENCY MAY PERFORM A RESUMPTION OF CARE VISIT FOLLOWING ANY HOSPITAL ADMISSION. RN/POSSUM TRAPPER/LEVI MAKER TO MONITOR CO-MORBID CONDITIONS LISTED ON THE PLAN OF CARE AND ANY NEW CONDITIONS THAT PRESENT THEMSELVES DURING THIS EPISODE TO IDENTIFY CHANGES AND INTERVENE TO MINIMIZE COMPLICATIONS. [code = RN TO OBSERVE, ASSESS, EVALUATE, AND DEVELOP AN INDIVIDUALIZED PLAN OF CARE. AGENCY MAY ACCEPT ORDERS FROM CONSULTING PHYSICIANS RN TO OBSERVE AND ASSESS, POSSUM TRAPPER/LEVI MAKER TO OBSERVE FOR RISK FOR FALLS AND INSTRUCT IN FALL PREVENTION, HOME SAFETY, MEDICATION MANAGEMENT, INFECTION PREVENTION, AND NUTRITION MANAGEMENT. RN/POSSUM TRAPPER/LEVI MAKER NURSE MAY PERFORM O2 SATURATION LEVEL ON ADMISSION AND PRN FOR RN TO ASSESS/POSSUM TRAPPER TO OBSERVE PATIENT, WITH NOTIFICATION TO THE PHYSICIAN IF SATURATION IS 90% IN THE ABSENCE OF MORE SPECIFIC PARAMETERS FROM THE PHYSICIAN. AGENCY MAY PERFORM A RESUMPTION OF CARE VISIT FOLLOWING ANY HOSPITAL ADMISSION. RN/POSSUM TRAPPER/LEVI MAKER TO MONITOR CO-MORBID CONDITIONS LISTED ON THE PLAN OF CARE AND ANY NEW CONDITIONS THAT PRESENT THEMSELVES DURING THIS EPISODE TO IDENTIFY CHANGES AND INTERVENE TO MINIMIZE COMPLICATIONS.] Future Scheduled Test GASTROINTE STINAL MANAGEMENT; RN TO ASSESS AND TEACH, LEVI MAKER/POSSUM TRAPPER TO OBSERVE AND TEACH RELATED TO ALTERED GASTROINTESTINAL STATUS TO MINIMIZE COMPLICATIONS AND REDUCE HOSPITALIZATION. [code = GASTROINTESTINAL MANAGEMENT; RN TO ASSESS AND TEACH, LEVI MAKER/POSSUM TRAPPER TO OBSERVE AND TEACH RELATED TO ALTERED GASTROINTESTINAL STATUS TO MINIMIZE COMPLICATIONS AND REDUCE HOSPITALIZATION.] Future Scheduled Test PAIN MANAG EMENT; RN TO ASSESS AND TEACH, LEVI MAKER/POSSUM TRAPPER TO OBSERVE AND TEACH AND PROVIDE EDUCATION ON PAIN MANAGEMENT TECHNIQUES. [code = PAIN MANAGEMENT; RN TO ASSESS AND TEACH, LEVI MAKER/POSSUM TRAPPER TO OBSERVE AND TEACH AND PROVIDE EDUCATION ON PAIN MANAGEMENT TECHNIQUES.] Future Scheduled Test RISK FOR H OSPITALIZATION; RN TO ASSESS/TEACH, LEVI MAKER/POSSUM TRAPPER TO OBSERVE/TEACH PATIENT/CAREGIVER ON RISK FOR HOSPITALIZATION/EMERGENCY ROOM VISITS, TEACH SIGNS AND SYMPTOMS THAT PUT PATIENT AT RISK, WHEN TO NOTIFY NURSE/PHYSICIAN OF COMPLICATIONS/DECLINE, AND WHEN TO CALL 911. [code = RISK FOR HOSPITALIZATION; RN TO ASSESS/TEACH, LEVI MAKER/POSSUM TRAPPER TO OBSERVE/TEACH PATIENT/CAREGIVER ON RISK FOR HOSPITALIZATION/EMERGENCY ROOM VISITS, TEACH SIGNS AND SYMPTOMS THAT PUT PATIENT AT RISK, WHEN TO NOTIFY NURSE/PHYSICIAN OF COMPLICATIONS/DECLINE, AND WHEN TO CALL 911.] Future Scheduled Test CARDIOVASC ULAR SYSTEM; RN TO ASSESS/TEACH, POSSUM TRAPPER/LEVI MAKER TO OBSERVE/TEACH RELATED TO ALTERED CARDIOVASCULAR STATUS TO MINIMIZE COMPLICATIONS AND REDUCE HOSPITALIZATION. [code = CARDIOVASCULAR SYSTEM; RN TO ASSESS/TEACH, POSSUM TRAPPER/LEVI MAKER TO OBSERVE/TEACH RELATED TO ALTERED CARDIOVASCULAR STATUS TO MINIMIZE COMPLICATIONS AND REDUCE HOSPITALIZATION.] Future Scheduled Test HYPERTENSI ON MANAGEMENT; RN TO ASSESS AND TEACH, POSSUM TRAPPER/LEVI MAKER TO OBSERVE AND TEACH WARNING SIGNS AND SYMPTOMS TO AVOID HOSPITALIZATION. [code = HYPERTENSION MANAGEMENT; RN TO ASSESS AND TEACH, POSSUM TRAPPER/LEVI MAKER TO OBSERVE AND TEACH WARNING SIGNS AND SYMPTOMS TO AVOID HOSPITALIZATION.] Future Scheduled Test SKIN INTEG RITY RN TO ASSESS AND TEACH, POSSUM TRAPPER/LEVI MAKER TO OBSERVE AND TEACH INTEGUMENTARY STATUS TO IDENTIFY CHANGES AND INTERVENE TO MINIMIZE COMPLICATIONS. PROVIDE SKILLED TEACHING OF GENERAL WOUND AND SKIN CARE AND PREVENTION RELATED TO POTENTIAL ALTERED SKIN INTEGRITY [code = SKIN INTEGRITY RN TO ASSESS AND TEACH, POSSUM TRAPPER/LEVI MAKER TO OBSERVE AND TEACH INTEGUMENTARY STATUS TO IDENTIFY CHANGES AND INTERVENE TO MINIMIZE COMPLICATIONS. PROVIDE SKILLED TEACHING OF GENERAL WOUND AND SKIN CARE AND PREVENTION RELATED TO POTENTIAL ALTERED SKIN INTEGRITY ] Future Scheduled Test AGENCY MAY PERFORM A RESUMPTION OF CARE VISIT FOLLOWING ANY HOSPITAL ADMISSION. OT TO EVALUATE, OBSERVE / ASSESS, AND MONITOR, HOSE MAKER TO OBSERVE AND MONITOR, PROVIDE SKILLED THERAPEUTIC INTERVENTION, ACTIVITY, EDUCATION, AND TRAINING TO ADDRESS; DRESSING (OT/HOSE MAKER) ACTIVITIES OF DAILY LIVING (OT/SANJUANA) TOILET TRANSFER (OT/SANJUANA) HOME ACTIVITY / EXERCISE PROGRAM (OT/HOSE MAKER) ENERGY CONSERVATION/ACTIVITY DEMAND (OT/SANJUANA) OT/SANJUANA TO MONITOR AND EDUCATE ON OXYGEN SATURATION DURING ADLS/IADLS, NOTIFY PHYSICIAN AND/OR THE RN CLINICAL TOY STUFFER FOR PHYSICIAN NOTIFICATION AND IF O2 SATS [...] ACTIVITY, EDUCATION, AND TRAINING TO ADDRESS; DRESSING (OT/HOSE MAKER) ACTIVITIES OF DAILY LIVING (OT/HOSE MAKER) TOILET TRANSFER (OT/HOSE MAKER) HOME ACTIVITY / EXERCISE PROGRAM (OT/SANJUANA) ENERGY CONSERVATION/ACTIVITY DEMAND (OT/HOSE MAKER) OT/HOSE MAKER TO MONITOR AND EDUCATE ON OXYGEN SATURATION DURING ADLS/IADLS, NOTIFY PHYSICIAN AND/OR THE RN CLINICAL TOY STUFFER FOR PHYSICIAN NOTIFICATION AND IF O2 SATS BELOW 90% AFTER 10 MIN OF REST. OT/SANJUANA MAY EDUCATE ON PAIN MANAGEMENT CLINICALLY INDICATED, INCLUDING NON-PHARMACOLOGICAL PAIN REDUCTION TECHNIQUES AND USE OF CRYOTHERAPY OR HEAT UP TO 20 MIN AT A TIME FOR PAIN MANAGEMENT OF GENERAL PAIN OT / HOSE MAKER TO IDENTIFY FALL RISK FACTORS; EDUCATE THE [...] End Date/Time Encounter Type Admission Type Attending [facility] Care Department Encounter ID Discharge Date Discharge Status Discharge Condition Discharge Reason Percent Goals Met 2024-07-24 00:00:00 2024-09-21 00:00:00 Outpatient NEW ADMISSION [facility] [id number] [id number]
--- OUTSIDE RECORDS SUMMARY | 2024-07-31 14:46 | XMS_ITS | Encounter Summary ---
Author Organization [employer] Address [address] [place] [address] Care Team Providers Care Rehabilitation Nurse Name Role Phone Gisselle Gilman MD Primary Care Provider [phone] Encounter Details Date Type Department Care Team (Late st Contact Info) Description 07/22/2024 Lab Requisition [facility] - Main Lab [address] [facility] [place] [address] Trina Brock MD [address] [address] Occlusion and stenosis of left vertebral artery; Benign prostatic hyperplasia without lower urinary tract symptoms; Atherosclerotic heart disease of [place] coronary artery without angina pectoris; Type 2 diabetes mellitus without complications (CMS/[facility]) Social History Tobacco Use Types Packs/Day Years [...] on file documented as of this encounter Procedures Procedure Name Priority Date/Time Associated Diagnosis Comments COMPLETE BLOOD COUNT Routine 07/23/2024 6:38 AM EST Occlusion and stenosis of left vertebral artery Benign prostatic hyperplasia without lower urinary tract symptoms Atherosclerotic heart disease of [place] coronary artery without angina pectoris Type 2 diabetes mellitus without complications (CMS/HCC) BASIC METABOLIC PANEL Routine 07/23/2024 6:38 AM EST Occlusion and stenosis of left vertebral artery Benign prostatic hyperplasia without lower urinary tract symptoms Atherosclerotic heart disease of [place] coronary artery without angina pectoris Type 2 diabetes mellitus without complications ([facility]) documented in this encounter Results * (ABNORMAL) Basic metabolic panel (07/23/2024 6:38 AM EST) Sodium 142 133 - 145 mmol/L LAB CHEMISTRY METHOD 07/23/2024 9:46 AM [facility] Potassium 3.4(L) 3.5 - 5.5 mmol/L LAB CHEMISTRY METHOD 07/23/2024 9:46 AM [facility] Chloride 107 96 - 110 mmol/L LAB CHEMISTRY METHOD 07/23/2024 9:46 AM [facility] CO2 28 21 - 32 mmol/L LAB CHEMISTRY METHOD 07/23/2024 9:46 AM [facility] Anion Gap 7 3 - 11 LAB CHEMISTRY METHOD 07/23/2024 9:46 AM [facility] Glucose 126(H) 70 - 100 mg/dL LAB CHEMISTRY METHOD 07/23/2024 9:46 AM [facility] BUN 9 5 - 25 mg/dL LAB CHEMISTRY METHOD 07/23/2024 9:46 AM [facility] Creatinine 0.67(L) 0.70 - 1.30 mg/dL LAB CHEMISTRY METHOD 07/23/2024 9:46 AM [facility] eGFR 91 >=60 mL/min/1. 73m2 LAB CHEMISTRY METHOD 07/23/2024 9:46 AM [facility] Comment:Calculation based on the??Chronic Kidney Disease Epidemiology Collaboration (CKD-EPI) equation refit??without adjustment for race. BUN/Creatinine Ratio 13.4 LAB CHEMISTRY METHOD 07/23/2024 9:46 AM [facility] Calcium 8.6 8.5 - 10.5 mg/dL LAB CHEMISTRY METHOD 07/23/2024 9:46 AM [facility] Blood Venous blood specimen / Unknown Venipuncture / Unknown 07/23/2024 6:38 AM EST 07/23/2024 8:11 AM EST us Trina Brock MD LAB BLOOD ORDERABLES Fin al Result [facility] [address] [place] [address], * (ABNORMAL) Complete blood count (07/23/2024 6:38 AM EST) WBC 2.8(L) 4.8 - 10.8 K/mcL LAB HEMETOLOGY METHOD 07/23/2024 9:30 AM [facility] RBC 3.50(L) 4.50 - 5.50 M/mcL LAB HEMETOLOGY METHOD 07/23/2024 9:30 AM [facility] Hemoglobin 10.7(L) 13.5 - 17.5 g/dL LAB HEMETOLOGY METHOD 07/23/2024 9:30 AM [facility] Hematocrit 33.9(L) 42.0 - 54.0 % LAB HEMETOLOGY METHOD 07/23/2024 9:30 AM [facility] MCV 97.7 79.0 - 98.0 FL LAB HEMETOLOGY METHOD 07/23/2024 9:30 AM [facility] MCH 30.8 27.0 - 32.0 pcg LAB HEMETOLOGY METHOD 07/23/2024 9:30 AM [facility] MCHC 31.6(L) 32.0 - 37.0 g/dL LAB HEMETOLOGY METHOD 07/23/2024 9:30 AM [facility] RDW 15.0 11.0 - 15.0 % LAB HEMETOLOGY METHOD 07/23/2024 9:30 AM EST [facility] Platelets 88(L) 130 - 400 K/mcL LAB HEMETOLOGY METHOD 07/23/2024 9:30 AM EST [facility] Comment:previously verified by slide MPV 9.6 7.0 - 11.0 FL LAB HEMETOLOGY METHOD 07/23/2024 9:30 AM EST [facility] NRBC 0.0 <1.0 % LAB HEMETOLOGY METHOD 07/23/2024 9:30 AM EST [facility] NRBC Absolute 0.00 <0.10 K/mcL LAB HEMETOLOGY METHOD 07/23/2024 9:30 AM [facility] Blood Venous blood specimen / Unknown Venipuncture / Unknown 07/23/2024 6:38 AM EST 07/23/2024 8:11 AM EST us Trina Brock MD LAB BLOOD ORDERABLES Fin al Result [facility] [address] [place] [address], documented in this encounter Visit Diagnoses Diagnosis Occlusion and stenosis of left vertebral artery Benign prostatic hyperplasia without lower urinary tract symptoms Atherosclerotic heart disease of [place] coronary artery without angina pectoris Type 2 diabetes mellitus without complications (CMS/HCC) documented in this encounter Care Teams Rehabilitation Nurse Relationship Specialty Start Date End Date Gisselle Gilman MD [address] [place] [id number] PCP - General 05/30/12 documented as of this encounter
--- OUTSIDE RECORDS SUMMARY | 2024-07-31 14:46 | XMS_ITS | Encounter Summary ---
Author Name [facility] [employer] [facility] Organization [employer] [facility] Address [address] [place] [address] Care Team Providers Care Early Breastfeeding Care Specialist Name Role Phone TOÑO CAI Primary [...] [place] SUPPLEMEN MASTER PSUED O MEDEX BRON E Mar 19, 2004 [id number] [phone] HOLLIE SHEPHERD PATIENT [place] MED[place] SUPPLEMEN MASTER MEDEX BRONZ E Mar 19, 2004 [id number] HOLLIE SHEPHERD PATIENT [place] SUPPLEMEN MASTER MEDEX BRONZ E Mar 19, 2004 [id number] [phone] HOLLIE SHEPHERD PATIENT BCBS [facility] MEDICARE SUPPLEMEN MASTER PSUED O MEDEX BRONZ E Mar 19, 2004 [id number] [phone] HOLLIE SHEPHERD PATIENT MEDICARE (WNR) MEDICARE (M) PART B Mar 19, 2004 PART B [id number] [phone] HOLLIE SHEPHERD PATIENT MEDICARE (WNR) MEDICARE (M) PART B Mar 19, 2004 PART B [id number] [phone] HOLLIE SHEPHERD PATIENT MEDICARE (WNR) MEDICARE (M) PART B Mar 19, 2004 PART B [id number] [phone] HOLLIE SHEPHERD PATIENT MEDICARE (WNR) MEDICARE (M) PART A Feb 17, 2003 PART A [id number] [phone] HOLLIE SHEPHERD ALD PATIENT MEDICARE (WNR) MEDICARE (M) PART A Feb 17, 2003 PART A [id number] HOLLIE SHEPHERD PATIENT MEDICARE (WNR) MEDICARE (M) PART A Feb 17, 2003 PART A [id number] [phone] HOLLIE SHEPHERD PATIENT MEDICARE (WNR) MEDICARE (M) PART A Feb 17, 2003 PART A [id number] HOLLIE SHEPHERD PATIENT MEDICARE (WNR) MEDICARE (M) PART B Feb 17, 2003 PART B [id number] HOLLIE SHEPHERD PATIENT MEDICARE (WNR) MEDICARE (M) PART A Feb 17, 2003 PART A [id number] [phone] HOLLIE SHEPHERD PATIENT MEDICARE (WNR) MEDICARE (M) PART B Feb 17, 2003 PART B [id number] HOLLIE SHEPHERD PATIENT Selected Encounter This section includes the information on record at ME for the Encounter. Date/Time Encounter Type Encounter Description Reason Pro vider Source Jul 31, 2024 09:29 AM Outpatient Encounter ADMIN PAT ACTIVTIES (MASNONCT) IHE Encounter Template Text not used by ME Plan of Treatment: Future Appointments (+ 6 months) and Future Tests (+/- 45 days) The Plan of Treatment section includes future care activities for the patient from all ME treatmentfacilities. This section includes future appointments and future orders which are active, pending or scheduled. Future Appointments This section includes appointments that were scheduled to occur 6 months from the date of the Encounter, up to a maximum of 20 appointments. The data comes from all [place] treatment facilities. Appointment Date/Time Appointment Type Appointme nt Facility Name Aug 01, 2024 11:00 AM AMBULATORY - MEDICINE [facility] Aug 06, 2024 10:00 AM AMBULATORY - MEDICINE [facility] Aug 22, 2024 11:00 AM AMBULATORY - MEDICINE [facility] Sep 27, 2024 11:00 AM AMBULATORY - PSYCHIATRY [facility] Oct 02, 2024 12:00 PM AMBULATORY - PSYCHIATRY [facility] Oct 02, 2024 12:00 PM AMBULATORY - PSYCHIATRY [facility] Oct 03, 2024 02:00 PM AMBULATORY - MEDICINE [facility] Nov 27, 2024 11:00 AM AMBULATORY - MEDICINE [facility] Active, Pending, and Scheduled Orders This section includes a listing of several types of active, pending, and scheduled orders, including clinic medications orders, diagnostic test orders, procedure orders and consult orders; where the start date of the order is 45 days before the date of the Encounter or 45 days after the date of theEncounter. The data comes from all ME treatment facilities. Test Date/Time Test Type Test Details Facility Name Jun 17, 2024 12:00 AM Laboratory - Chemistry Order FERRITIN BLOOD (SST-SERUM) [facility] Jun 17, 2024 12:00 AM Laboratory - Chemistry Order IRON & TIBC PANEL BLOOD (SST-SERUM) SP [facility] Jun 17, 2024 11:31 AM Consult Order OTOLARYNGOLOGY/ENT ONE Cons Enrollment Manager's Choice [facility] Jul 05, 2024 09:52 AM Consult Order COMMUNITY CARE-RHEUMATOLOGY Cons Enrollment Manager's Choice [facility] Jul 24, 2024 12:00 AM Laboratory - Chemistry Order IRON & TIBC PANEL BLOOD (SST-SERUM) SP [facility] Jul 24, 2024 12:00 AM Laboratory - Chemistry Order FERRITIN BLOOD (SST-SERUM) SP [facility] Jul 24, 2024 12:00 AM Laboratory - Chemistry Order CBC AND DIFF (AUTO) BLOOD (LAV-BLOOD) [facility] Jul 24, 2024 12:00 AM Laboratory - Chemistry Order BASIC METABOLIC PANEL (fasting) BLOOD (SST-SERUM) [facility] Jul 24, 2024 12:00 AM Laboratory - Chemistry Order LIVER FUNCTION BLOOD (SST-SERUM) [facility] Jul 29, 2024 10:16 AM Consult Order PSYCHIATRIC MEDICATION BHIP/NHM OUTPT Cons Enrollment Manager's Choice [facility] Aug 22, 2024 12:00 AM Laboratory - Chemistry Order OSMOLALITY (SERUM) BLOOD (SST-SERUM) [facility] Aug 22, 2024 12:00 AM Laboratory - Chemistry Order BASIC METABOLIC PANEL (non-fasting) BLOOD (SST-SERUM) [facility] Aug 22, 2024 12:00 AM Laboratory - Chemistry Order CALCIUM BLOOD (SST-SERUM) [facility] Aug 22, 2024 12:00 AM Laboratory - Chemistry Order VITAMIN D (25-OH) BLOOD (SST-SERUM) [facility] Aug 22, 2024 12:00 AM Laboratory - Chemistry Order HEMOGLOBIN A1C PANEL BLOOD (LAV-BLOOD) [facility] Aug 22, 2024 12:00 AM Laboratory - Chemistry Order MICROALBUMIN CREATININE RATIO PANEL URINE (RANDOM) [facility] Social History: Smoking Status (Most current) and Tobacco Use (All prior to encounter date) This section includes the most current, and the historical, smoking and tobacco- related health factors from the ME facility where the Encounter took place. Current Smoking Status This section includes the most current smoking, or tobacco-related health factor, from the ME facility where the Encounter took place. Date/Time Current Smoking Status Comment Facil ity Jun 17, 2024 10:31 AM VA-TOBACCO USE FOR TAMMY CIGARETTES [facility] Tobacco Use History This section includes a history of the smoking, or tobacco-related health factors, that were collected on or before the date of the Encounter. The data comes from the ME facility where the Encounter took place. Date/Time Smoking Status/Tobac co Use Comment Facility Jun 17, 2024 10:31 AM VA-TOBACCO USE FORMER CIGARETTES [facility] Jun 05, 2023 11:00 AM VA-TOBACCO FORMER USER [facility] Jun 05, 2023 11:00 AM VA-TOBACCO QUIT 15 YRS OR MORE [facility] Jun 06, 2022 01:00 PM VA-TOBACCO FORMER USER [facility] Jun 06, 2022 01:00 PM VA-TOBACCO QUIT 15 YRS OR MORE [facility] Jun 30, 2021 02:37 PM VA-TOBACCO FORMER USER [facility] Jun 30, 2021 02:37 PM VA-TOBACCO QUIT 5 TO < 15 YRS [facility] May 22, 2020 03:30 PM VA-TOBACCO NEVER USED [facility] May 08, 2018 02:03 PM VA-TOBACCO FORMER USER [facility] May 08, 2018 02:03 PM VA-TOBACCO QUIT 15 YRS OR MORE [facility] November 10, 2017 02:33 PM QUIT TOBACCO USE > 7 YEARS AGO [facility] October 21, 2016 01:55 PM QUIT TOBACCO USE > 7 YEARS AGO [facility] Sep 18, 2015 11:24 AM QUIT TOBACCO USE > 7 YEARS AGO stopped 50 years ago [facility] May 19, 2005 08:01 AM HISTORY OF SMOKING [facility] May 31, 2004 01:02 PM HISTORY OF SMOKING [facility] Jun 04, 2003 07:57 AM HISTORY OF SMOKING [facility] Jun 03, 2002 01:11 PM HISTORY OF SMOKING [facility] Jun 03, 2002 01:11 PM QUIT TOBACCO USE > 7 YEARS AGO [facility] Advance Directives: All historical and current Section Date Range: From patient's date of to the date document was created. This section includes ALL of a patient's completed or amended [place] Advance and Rescinded Directives. The entries below indicate that a directive exists for the patient, but an actual copy is not included with this document. The data comes from all ME facilities. Date Advance Directives Provider Source Jun 02, 2023 ADVANCE DIRECTIVE JENNIFER QUIROS [facility]
--- OUTSIDE RECORDS SUMMARY | 2024-07-31 14:47 | XMS_ITS | Encounter Summary ---
Author Organization [employer] Address [address] [place] [address] Care Team Providers Care Weed Thinner Name Role Phone Gisselle Gilman MD Primary Care Provider [phone] Encounter Details Date Type Department Care Team (Late st Contact Info) Description 07/18/2024 Lab Requisition [facility] - Main Lab [address] [facility] [place] [address] Trina Brock MD [address] [address] Benign prostatic hyperplasia without lower urinary tract symptoms; Atherosclerotic heart disease of [place] coronary artery without angina pectoris; Occlusion and stenosis of left vertebral artery; 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; Type 2 diabetes mellitus without complications (CMS/HCC) Social History Tobacco Use Types Packs/Day Years [...] Associated Diagnosis Comments COMPLETE BLOOD COUNT Routine 07/18/2024 6:05 AM EST Benign prostatic hyperplasia without lower urinary tract symptoms 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 Type 2 diabetes mellitus without complications (CMS/HCC) BASIC METABOLIC PANEL Routine 07/18/2024 6:05 AM EST Benign prostatic hyperplasia without lower urinary tract symptoms 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 Type 2 diabetes mellitus without complications ([facility]) documented in this encounter Results * (ABNORMAL) Basic metabolic panel (07/18/2024 6:05 AM EST) Sodium 141 133 - 145 mmol/L LAB CHEMISTRY METHOD 07/18/2024 8:06 AM [facility] Potassium 3.4(L) 3.5 - 5.5 mmol/L LAB CHEMISTRY METHOD 07/18/2024 8:06 AM [facility] Chloride 107 96 - 110 mmol/L LAB CHEMISTRY METHOD 07/18/2024 8:06 AM [facility] CO2 31 21 - 32 mmol/L LAB CHEMISTRY METHOD 07/18/2024 8:06 AM [facility] Anion Gap 3 3 - 11 LAB CHEMISTRY METHOD 07/18/2024 8:06 AM [facility] Glucose 143(H) 70 - 100 mg/dL LAB CHEMISTRY METHOD 07/18/2024 8:06 AM [facility] BUN 8 5 - 25 mg/dL LAB CHEMISTRY METHOD 07/18/2024 8:06 AM [facility] Creatinine 0.66(L) 0.70 - 1.30 mg/dL LAB CHEMISTRY METHOD 07/18/2024 8:06 AM [facility] eGFR 91 >=60 mL/min/1. 73m2 LAB CHEMISTRY METHOD 07/18/2024 8:06 AM [facility] Comment:Calculation based on the??Chronic Kidney Disease Epidemiology Collaboration (CKD-EPI) equation refit??without adjustment for race. BUN/Creatinine Ratio 12.1 LAB CHEMISTRY METHOD 07/18/2024 8:06 AM [facility] Calcium 8.3(L) 8.5 - 10.5 mg/dL LAB CHEMISTRY METHOD 07/18/2024 8:06 AM [facility] Blood Venous blood specimen / Unknown Venipuncture / Unknown 07/18/2024 6:05 AM EST 07/18/2024 6:37 AM EST us Trina Brock MD LAB BLOOD ORDERABLES Fin al Result [facility] [address] [place] [address], * (ABNORMAL) Complete blood count (07/18/2024 6:05 AM EST) WBC 2.8(L) 4.8 - 10.8 K/mcL LAB HEMETOLOGY METHOD 07/18/2024 8:35 AM [facility] RBC 3.10(L) 4.50 - 5.50 M/mcL LAB HEMETOLOGY METHOD 07/18/2024 8:35 AM [facility] Hemoglobin 9.6(L) 13.5 - 17.5 g/dL LAB HEMETOLOGY METHOD 07/18/2024 8:35 AM [facility] Hematocrit 29.9(L) 42.0 - 54.0 % LAB HEMETOLOGY METHOD 07/18/2024 8:35 AM [facility] MCV 96.8 79.0 - 98.0 FL LAB HEMETOLOGY METHOD 07/18/2024 8:35 AM [facility] MCH 31.1 27.0 - 32.0 pcg LAB HEMETOLOGY METHOD 07/18/2024 8:35 AM [facility] MCHC 32.1 32.0 - 37.0 g/dL LAB HEMETOLOGY METHOD 07/18/2024 8:35 AM [facility] RDW 16.1(H) 11.0 - 15.0 % LAB HEMETOLOGY METHOD 07/18/2024 8:35 AM EST [facility] Platelets 83(L) 130 - 400 K/mcL LAB HEMETOLOGY METHOD 07/18/2024 8:35 AM EST [facility] Comment:previously verified by slide MPV 9.4 7.0 - 11.0 FL LAB HEMETOLOGY METHOD 07/18/2024 8:35 AM EST [facility] NRBC 0.0 <1.0 % LAB HEMETOLOGY METHOD 07/18/2024 8:35 AM [facility] NRBC Absolute 0.00 <0.10 K/mcL LAB HEMETOLOGY METHOD 07/18/2024 8:35 AM [facility] Blood Venous blood specimen / Unknown Venipuncture / Unknown 07/18/2024 6:05 AM EST 07/18/2024 6:37 AM EST us Trina Brock MD LAB BLOOD ORDERABLES Fin al Result [facility] [address] [place] [address], documented in this encounter Visit Diagnoses Diagnosis Benign prostatic hyperplasia without lower urinary tract symptoms 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
--- OUTSIDE RECORDS SUMMARY | 2024-07-31 14:47 | XMS_ITS | Clinical Summary ---
Author Organization LL [address] [place] [address] [place] [phone] Phone Care Team Providers Care Assemblyman Or Woman Name Role Phone Gisselle Gilman MD Primary Care Provider [phone] Medications furosemide (LASIX) 20 mg tablet TAKE 1 TABLET BY MOUTH DAILY 90 tablet 1 06/03/2024 Active aspirin 81 mg EC tablet Take 1 tablet (81 mg total) by mouth 1 (one) time each day. 10/09/2023 Active atorvastatin (LIPITOR) 40 mg tablet Take 1 tablet (40 mg total) by mouth daily. 04/03/2015 Active losartan (COZAAR) 100 mg tablet Take 1 tablet (100 mg total) by mouth daily. 04/03/2015 Active metoprolol succinate (TOPROL-XL) 25 mg 24 hr tablet Take 0.5 tablets (12.5 mg total) by mouth 1 (one) time each day. 01/16/2024 Active Encounters Date Type Department Care Team Description 07/29/2024 Lab Requisition [facility] - Main Lab [address] [place] [address] Trina Brock MD Type 2 diabetes mellitus without complications (CMS/HCC); Atherosclerotic heart disease of [place] coronary artery without angina pectoris; Benign prostatic hyperplasia without lower urinary tract symptoms; Occlusion and stenosis of left vertebral artery 07/22/2024 Lab Requisition [facility] - Main Lab [address] [place] [address] Trina Brock MD Occlusion and stenosis of left vertebral artery; Benign prostatic hyperplasia without lower urinary tract symptoms; Atherosclerotic heart disease of [place] coronary artery without angina pectoris; Type 2 diabetes mellitus without complications ([facility]) 07/18/2024 Lab Requisition [facility] - Main Lab [address] [place] [address] Trina Brock MD Benign prostatic hyperplasia without lower urinary tract symptoms; Atherosclerotic heart disease of [place] coronary artery without angina pectoris; Occlusion and stenosis of left vertebral artery; alf (current) use of anticoagulants; Type 2 diabetes mellitus without complications ([facility]) 07/13/2024 Lab Requisition [facility] - Main Lab [address] [place] [address] Trina Brock MD Other long term care administrator (current) drug therapy 06/04/[address] [place] [address] Dejuan Grider MD Shortness of Breath from Last 3 Months Surgical History Surgery Date Site/Laterality Comments OTHER SURGICAL HISTORY PROCEDURE: HISTORY OTHER; COMMENT: cholecystomy OTHER SURGICAL HISTORY PROCEDURE: HISTORY OTHER; COMMENT: hand surgery OTHER SURGICAL HISTORY PROCEDURE: HISTORY OTHER; COMMENT: shoulder surgery OTHER SURGICAL HISTORY PROCEDURE: HISTORY OTHER; COMMENT: lumbar discectomy OTHER SURGICAL HISTORY PROCEDURE: HISTORY OTHER; COMMENT: hemorrhoidectomy OTHER SURGICAL HISTORY PROCEDURE: HISTORY OTHER; COMMENT: colonoscopy Medical History Medical History Date Comments Carpal tunnel syndrome DX:Carpal tunnel syndrome HTN (hypertension) DX:HTN (hyper tension) Diabetes ([facility]) DX:Diabetes ( [facility]) Anemia DX:Anemia Gastritis DX:Gastritis Hemorrhoids DX:Hemorrhoids Family History Medical History Relation Name Comments Other: heart attack Brother Other: heart attack Father Other: heart disease Father Cataracts Mother Other: pacemaker Mother Arthritis Sister Other: heart problem Sister Other: heart valve replaced Sister Relation Name Status Comments Brother Father Mother Sister Social History Tobacco Use Types Packs/Day Years [...] on file Sexual Orientation Not on file Obstetrics History Last Filed Vital Signs Vital Sign Reading Time Taken Comments Blood Pressure 138/70 12/12/2023 2:20 PM EDT Sitting R Arm Pulse 95 12/12/2023 2:20 PM EDT Temperature - - Respiratory Rate - - Oxygen Saturation - - Inhaled Oxygen Concentration - - Weight 78.6 kg (173 lb 4.8 oz) 12/12/2023 2:20 PM EDT Height 170.2 cm (5' 7 ) 12/12/2023 2:20 PM EDT Body Mass Index 27.14 12/12/2023 2:20 PM EDT Plan of Treatment Health Maintenance Due Date Last Done Comments Diabetes: Annual Foot Exam 1948 Diabetes: Annual Retina Eye Exam 1950 RSV Immunization Patients 60+ Years Old (1 - 1-dose 75+ series) 2013 Cholesterol Screening (Lipid Panel) 05/28/2022 Depression Screening 05/28/2022 Falls Risk Assessment 05/28/2022 Social Influencers of Health Screening 05/28/2022 Medicare Annual Wellness Visit 08/01/2023 08/01/2022 COVID-19 Vaccine ( season) 2024 04/21/2023, 05/19/2022, 09/23/2021, Additional history exists Diabetes: Blood Sugar Control Test (HGBA1C) 10/09/2024 04/10/2024 Hypertension/CHF/CAD Annual BMP Blood Test 07/23/2025 07/23/2024, 07/18/2024, 07/13/2024, Additional history exists DTaP,Tdap,and Td Vaccines (4 - Td or Tdap) 03/11/2032 03/11/2022, 07/23/2012, 03/04/2011 Pneumococcal Vaccine: 50+ Years Completed 11/12/2014, 11/12/2014, 06/19/2009 Zoster Vaccines Completed 09/27/2021, 08/0 09/2019, 10/08/2010 Influenza Vaccine Completed 03/26/2024, , 05/11/2022, Additional history exists HIB Vaccines Aged Out No longer eligi ble based on patient's age to complete this topic HPV Vaccines Aged Out No longer eligi ble based on patient's age to complete this topic Hepatitis A Vaccines Aged Out No long er eligible based on patient's age to complete this topic Hepatitis B Vaccines Aged Out No long er eligible based on patient's age to complete this topic IPV Vaccines Aged Out No longer eligi ble based on patient's age to complete this topic MMR Vaccines Aged Out No longer eligi ble based on patient's age to complete this topic Meningococcal ACWY Vaccine Aged Out N o longer eligible based on patient's age to complete this topic Meningococcal B Vacine Aged Out No lo nger eligible based on patient's age to complete this topic RSV Immunization Patients Under 20 months Aged Out No longer eligible based on patient's age to complete this topic Varicella Vaccines Aged Out No longer eligible based on patient's age to complete this topic Procedures Procedure Name Priority Date/Time Associated Diagnosis Comments BASIC METABOLIC PANEL Routine 07/23/2024 6:38 AM EST Occlusion and stenosis of left vertebral artery Benign prostatic hyperplasia without lower urinary tract symptoms Atherosclerotic heart disease of [place] coronary artery without angina pectoris Type 2 diabetes mellitus without complications (CMS/HCC) COMPLETE BLOOD COUNT Routine 07/23/2024 6:38 AM EST Occlusion and stenosis of left vertebral artery Benign prostatic hyperplasia without lower urinary tract symptoms Atherosclerotic heart disease of [place] coronary artery without angina pectoris Type 2 diabetes mellitus without complications (CMS/HCC) BASIC METABOLIC PANEL Routine 07/18/2024 6:05 AM EST Benign prostatic hyperplasia without lower urinary tract symptoms 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 alf (current) use of anticoagulants Type 2 diabetes mellitus without complications (CMS/HCC) COMPLETE BLOOD COUNT Routine 07/18/2024 6:05 AM EST Benign prostatic hyperplasia without lower urinary tract symptoms 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 WBC 2.8(L) 4.8 - 10.8 K/mcL LAB HEMETOLOGY METHOD 07/23/2024 9:30 AM [facility] RBC 3.50(L) 4.50 - 5.50 M/mcL LAB HEMETOLOGY METHOD 07/23/2024 9:30 AM [facility] LAB Hemoglobin 10.7(L) 13.5 - 17.5 g/dL LAB HEMETOLOGY METHOD 07/23/2024 9:30 AM [facility] LAB Hematocrit 33.9(L) 42.0 - 54.0 % LAB HEMETOLOGY METHOD 07/23/2024 9:30 AM [facility] LAB MCV 97.7 79.0 - 98.0 FL LAB HEMETOLOGY METHOD 07/23/2024 9:30 AM [facility] LAB MCH 30.8 27.0 - 32.0 pcg LAB HEMETOLOGY METHOD 07/23/2024 9:30 AM [facility] LAB MCHC 31.6(L) 32.0 - 37.0 g/dL LAB HEMETOLOGY METHOD 07/23/2024 9:30 AM [facility] LAB RDW 15.0 11.0 - 15.0 % LAB HEMETOLOGY METHOD 07/23/2024 9:30 AM [facility] LAB Platelets 88(L) 130 - 400 K/mcL LAB HEMETOLOGY METHOD 07/23/2024 9:30 AM [facility] LAB Comment:previously verified by slide MPV 9.6 7.0 - 11.0 FL LAB HEMETOLOGY METHOD 07/23/2024 9:30 AM [facility] LAB NRBC 0.0 <1.0 % LAB HEMETOLOGY METHOD 07/23/2024 9:30 AM [facility] LAB NRBC Absolute 0.00 <0.10 K/mcL LAB HEMETOLOGY METHOD 07/23/2024 9:30 AM [facility] LAB Blood Venous blood specimen / Unknown Venipuncture / Unknown 07/23/2024 6:38 AM EST 07/23/2024 8:11 AM EST us Trina Brock MD LAB BLOOD ORDERABLES Fin al Result [facility] [address] [place] [address], * (ABNORMAL) Basic metabolic panel (07/23/2024 6:38 AM EST) Only the most recent of3 resultswithin the time period is included. Sodium 142 133 - 145 mmol/L LAB CHEMISTRY METHOD 07/23/2024 9:46 AM [facility] Potassium 3.4(L) 3.5 - 5.5 mmol/L LAB CHEMISTRY METHOD 07/23/2024 9:46 AM [facility] Chloride 107 96 - 110 mmol/L LAB CHEMISTRY METHOD 07/23/2024 9:46 AM [facility] CO2 28 21 - 32 mmol/L LAB CHEMISTRY METHOD 07/23/2024 9:46 AM [facility] Anion Gap 7 3 - 11 LAB CHEMISTRY METHOD 07/23/2024 9:46 AM [facility] Glucose 126(H) 70 - 100 mg/dL LAB CHEMISTRY METHOD 07/23/2024 9:46 AM [facility] BUN 9 5 - 25 mg/dL LAB CHEMISTRY METHOD 07/23/2024 9:46 AM EST [facility] Creatinine 0.67(L) 0.70 - 1.30 mg/dL LAB CHEMISTRY METHOD 07/23/2024 9:46 AM [facility] LAB eGFR 91 >=60 mL/min/1. 73m2 LAB CHEMISTRY METHOD 07/23/2024 9:46 AM EST [facility] LAB Comment:Calculation based on the??Chronic Kidney Disease Epidemiology Collaboration (CKD-EPI) equation refit??without adjustment for race. BUN/Creatinine Ratio 13.4 LAB CHEMISTRY METHOD 07/23/2024 9:46 AM [facility] Calcium 8.6 8.5 - 10.5 mg/dL LAB CHEMISTRY METHOD 07/23/2024 9:46 AM [facility] Blood Venous blood specimen / Unknown Venipuncture / Unknown 07/23/2024 6:38 AM EST 07/23/2024 8:11 AM EST us Trina Brock MD LAB BLOOD ORDERABLES Fin al Result [facility] [address] [place] [address], * (ABNORMAL) CBC auto differential (07/13/2024 7:29 AM EST) WBC 2.2(L) 4.8 - 10.8 K/mcL LAB HEMETOLOGY METHOD 07/13/2024 10:20 AM EST [facility] RBC 3.20(L) 4.50 - 5.50 M/mcL LAB HEMETOLOGY METHOD 07/13/2024 10:20 AM [facility] Hemoglobin 10.0(L) 13.5 - 17.5 g/dL LAB HEMETOLOGY METHOD 07/13/2024 10:20 AM [facility] Hematocrit 30.1(L) 42.0 - 54.0 % LAB HEMETOLOGY METHOD 07/13/2024 10:20 AM [facility] MCV 93.8 79.0 - 98.0 FL LAB HEMETOLOGY METHOD 07/13/2024 10:20 AM [facility] MCH 31.2 27.0 - 32.0 pcg LAB HEMETOLOGY METHOD 07/13/2024 10:20 AM [facility] LAB MCHC 33.2 32.0 - 37.0 g/dL LAB HEMETOLOGY METHOD 07/13/2024 10:20 AM [facility] RDW 14.6 11.0 - 15.0 % LAB HEMETOLOGY METHOD 07/13/2024 10:20 AM [facility] LAB Platelets 85(L) 130 - 400 K/mcL LAB HEMETOLOGY METHOD 07/13/2024 10:20 AM [facility] LAB Comment:reviewed by slide MPV 8.7 7.0 - 11.0 FL LAB HEMETOLOGY METHOD 07/13/2024 10:20 AM [facility] NRBC 0.0 <1.0 % LAB HEMETOLOGY METHOD 07/13/2024 10:20 AM [facility] LAB NRBC Absolute 0.00 <0.10 K/mcL LAB HEMETOLOGY METHOD 07/13/2024 10:20 AM [facility] Neutrophils Relative 43.6 % LAB HEMETOLOGY METHOD 07/13/2024 10:20 AM [facility] Lymphocytes Relative 28.9 % LAB HEMETOLOGY METHOD 07/13/2024 10:20 AM [facility] Monocytes Relative 23.9 % LAB HEMETOLOGY METHOD 07/13/2024 10:20 AM [facility] Eosinophils Relative 1.8 % LAB HEMETOLOGY METHOD 07/13/2024 10:20 AM [facility] Basophils Relative 1.8 % LAB HEMETOLOGY METHOD 07/13/2024 10:20 AM EST [facility] Immature Granulocytes Relative 0.0 % LAB HEMETOLOGY METHOD 07/13/2024 10:20 AM [facility] Neutrophils Absolute 0.95(L) 1.50 - 7.00 K/mcL LAB HEMETOLOGY METHOD 07/13/2024 10:20 AM EST [facility] Lymphocytes Absolute 0.63(L) 1.00 - 5.00 K/mcL LAB HEMETOLOGY METHOD 07/13/2024 10:20 AM EST [facility] Monocytes Absolute 0.52 0.20 - 1.00 K/mcL LAB HEMETOLOGY METHOD 07/13/2024 10:20 AM [facility] Eosinophils Absolute 0.04 0.00 - 0.50 K/mcL LAB HEMETOLOGY METHOD 07/13/2024 10:20 AM EST [facility] Basophils Absolute 0.04 0.00 - 0.20 K/mcL LAB HEMETOLOGY METHOD 07/13/2024 10:20 AM [facility] Immature Granulocytes Absolute 0.00 0.00 - 0.03 K/mcL LAB HEMETOLOGY METHOD 07/13/2024 10:20 AM [facility] Blood Venous blood specimen / Unknown Venipuncture / Unknown 07/13/2024 7:29 AM EST 07/13/2024 9:03 AM EST us Trina Brock MD LAB BLOOD ORDERABLES Fin al Result [facility]) [facility] [address] [place] [address], from Last 3 Months Insurance MEDICARE [facility] Care Teams Assemblyman Or Woman Relationship Specialty Start Date End Date Gisselle Gilman MD [address] [place] [phone] PCP - General 05/30/12
--- OUTSIDE RECORDS SUMMARY | 2024-07-31 14:47 | XMS_ITS | Encounter Summary ---
Author Organization [employer] Address [address] [place] [address] Care Team Providers Care Milk House Worker Name Role Phone Gisselle Gilman MD Primary Care Provider [phone] Encounter Details Date Type Department Care Team (Late st Contact Info) Description 07/13/2024 Lab Requisition [facility] - Main Lab [address] [facility] [place] [address] Trina Brock MD [address] [address] Other alf (current) drug therapy Social History Tobacco Use Types Packs/Day Years [...] Procedure Name Priority Date/Time Associated Diagnosis Comments CBC WITH AUTO DIFFERENTIAL Routine 07/13/2024 7:29 AM EST Other emt intermediate (current) drug therapy CBC AND DIFFERENTIAL Routine 07/13/2024 7:29 AM EST Other emt intermediate (current) drug therapy BASIC METABOLIC PANEL Routine 07/13/2024 7:29 AM EST Other emt intermediate (current) drug therapy documented in this encounter Results * (ABNORMAL) CBC auto differential (07/13/2024 7:29 AM EST) WBC 2.2(L) 4.8 - 10.8 K/mcL LAB HEMETOLOGY METHOD 07/13/2024 10:20 AM [facility] LAB RBC 3.20(L) 4.50 - 5.50 M/mcL LAB HEMETOLOGY METHOD 07/13/2024 10:20 AM [facility] LAB Hemoglobin 10.0(L) 13.5 - 17.5 g/dL LAB HEMETOLOGY METHOD 07/13/2024 10:20 AM [facility] LAB Hematocrit 30.1(L) 42.0 - 54.0 % LAB HEMETOLOGY METHOD 07/13/2024 10:20 AM [facility] LAB MCV 93.8 79.0 - 98.0 FL LAB HEMETOLOGY METHOD 07/13/2024 10:20 AM [facility] LAB MCH 31.2 27.0 - 32.0 pcg LAB HEMETOLOGY METHOD 07/13/2024 10:20 AM [facility] LAB MCHC 33.2 32.0 - 37.0 g/dL LAB HEMETOLOGY METHOD 07/13/2024 10:20 AM [facility] LAB RDW 14.6 11.0 - 15.0 % LAB HEMETOLOGY METHOD 07/13/2024 10:20 AM [facility] LAB Platelets 85(L) 130 - 400 K/mcL LAB HEMETOLOGY METHOD 07/13/2024 10:20 AM [facility] LAB Comment:reviewed by slide MPV 8.7 7.0 - 11.0 FL LAB HEMETOLOGY METHOD 07/13/2024 10:20 AM [facility] LAB NRBC 0.0 <1.0 % LAB HEMETOLOGY METHOD 07/13/2024 10:20 AM [facility] LAB NRBC Absolute 0.00 <0.10 K/mcL LAB HEMETOLOGY METHOD 07/13/2024 10:20 AM [facility] LAB Neutrophils Relative 43.6 % LAB HEMETOLOGY METHOD 07/13/2024 10:20 AM [facility] LAB Lymphocytes Relative 28.9 % LAB HEMETOLOGY METHOD 07/13/2024 10:20 AM [facility] Monocytes Relative 23.9 % LAB HEMETOLOGY METHOD 07/13/2024 10:20 AM [facility] LAB Eosinophils Relative 1.8 % LAB HEMETOLOGY METHOD 07/13/2024 10:20 AM [facility] LAB Basophils Relative 1.8 % LAB HEMETOLOGY METHOD 07/13/2024 10:20 AM [facility] LAB Immature Granulocytes Relative 0.0 % LAB HEMETOLOGY METHOD 07/13/2024 10:20 AM [facility] LAB Neutrophils Absolute 0.95(L) 1.50 - 7.00 K/mcL LAB HEMETOLOGY METHOD 07/13/2024 10:20 AM [facility] LAB Lymphocytes Absolute 0.63(L) 1.00 - 5.00 K/mcL LAB HEMETOLOGY METHOD 07/13/2024 10:20 AM [facility] LAB Monocytes Absolute 0.52 0.20 - 1.00 K/mcL LAB HEMETOLOGY METHOD 07/13/2024 10:20 AM [facility] LAB Eosinophils Absolute 0.04 0.00 - 0.50 K/mcL LAB HEMETOLOGY METHOD 07/13/2024 10:20 AM [facility] LAB Basophils Absolute 0.04 0.00 - 0.20 K/mcL LAB HEMETOLOGY METHOD 07/13/2024 10:20 AM [facility] LAB Immature Granulocytes Absolute 0.00 0.00 - 0.03 K/mcL LAB HEMETOLOGY METHOD 07/13/2024 10:20 AM [facility] LAB Blood Venous blood specimen / Unknown Venipuncture / Unknown 07/13/2024 7:29 AM EST 07/13/2024 9:03 AM EST us Trina Brock MD LAB BLOOD ORDERABLES Fin al Result [facility] [address] [place] [address], * (ABNORMAL) Basic metabolic panel (07/13/2024 7:29 AM EST) Sodium 145 133 - 145 mmol/L LAB CHEMISTRY METHOD 07/13/2024 9:54 AM [facility] Potassium 3.0(L) 3.5 - 5.5 mmol/L LAB CHEMISTRY METHOD 07/13/2024 9:54 AM [facility] LAB Chloride 114(H) 96 - 110 mmol/L LAB CHEMISTRY METHOD 07/13/2024 9:54 AM [facility] LAB CO2 25 21 - 32 mmol/L LAB CHEMISTRY METHOD 07/13/2024 9:54 AM [facility] LAB Anion Gap 6 3 - 11 LAB CHEMISTRY METHOD 07/13/2024 9:54 AM [facility] LAB Glucose 151(H) 70 - 100 mg/dL LAB CHEMISTRY METHOD 07/13/2024 9:54 AM [facility] BUN 5 5 - 25 mg/dL LAB CHEMISTRY METHOD 07/13/2024 9:54 AM [facility] LAB Creatinine 0.49(L) 0.70 - 1.30 mg/dL LAB CHEMISTRY METHOD 07/13/2024 9:54 AM [facility] LAB eGFR 100 >=60 mL/min/1. 73m2 LAB CHEMISTRY METHOD 07/13/2024 9:54 AM [facility] LAB Comment:Calculation based on the??Chronic Kidney Disease Epidemiology Collaboration (CKD-EPI) equation refit??without adjustment for race. BUN/Creatinine Ratio 10.2 LAB CHEMISTRY METHOD 07/13/2024 9:54 AM EST [facility] Calcium 7.6(L) 8.5 - 10.5 mg/dL LAB CHEMISTRY METHOD 07/13/2024 9:54 AM EST [facility] Blood Venous blood specimen / Unknown Venipuncture / Unknown 07/13/2024 7:29 AM EST 07/13/2024 9:03 AM EST us Trina Brock MD LAB BLOOD ORDERABLES Fin al Result [facility] [address] [place] [address], [place] [phone] documented in this encounter Visit Diagnoses Diagnosis Other emt intermediate (current) drug therapy documented in this encounter Care Teams Milk House Worker Relationship Specialty Start Date End Date Gisselle Gilman MD [address] [place] [phone] PCP - General 05/30/12 documented as of this encounter
--- OUTSIDE RECORDS SUMMARY | 2024-07-31 14:48 | XMS_ITS | Continuity of Care Document ---
Author Name [facility] Organization DOD-ID Care Team Providers Care [place] Operator Name Role Phone DOD-ID Unavailable Unavailable Problems Combined list of problems from Department of Defense and Veterans Affairs facilities. It does not include entries that were removed or entered in error. Problem Status Onset Date Problem Type Date of Resolution Comments Source Acute mesenteric ischaemia Active Condition [facility] Adjustment disorder Active Condition [facility] Aortic Valve Disorder (SCT 8597962) Active Condition Oct 09, 2023 Entered By: LUCAS CAI AM Comment: TAVR 10/03/2023 [facility]. [facility] Cerebrovascular disease Active Condition Apr 26, 2023 Entered By: ALLIE CUELLO Comment: s/p L carotid endarterectomy [facility] Chronic recurrent major depressive disorder Active Condition [facility] Diabetes mellitus type 2 (SNOMED CT 71956018) Active Condition [facility] Hyperlipidemia (SNOMED CT 15615354) Active Condition [facility] Hypertension Active Condition [facility] Hypertension (SNOMED CT 95198468) Active Condition [facility] [...] [facility] Diagnosis: ICD-10-CM 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 [facility] Diagnosis: ICD-10-CM Z96.41 Presence of insulin pump (external) (internal) Active Diagnosis [facility] Diagnosis: ICD-10-CM E11.8 Type 2 diabetes mellitus with unspecified complications Active Diagnosis [facility] Diagnosis: ICD-10-CM R10.0 Acute abdomen Active Diagnosis [facility] Diagnosis: ICD-10-CM F33.9 Major depressive disorder, recurrent, unspecified Active Diagnosis [facility] Diagnosis: ICD-10-CM M81.0 Age-related osteoporosis w/o [...] malignant neoplasm of skin Active Diagnosis [facility] Diagnosis: ICD-10-CM I35.9 Nonrheumatic aortic valve disorder, unspecified Active Diagnosis [facility] Diagnosis: ICD-10-CM I10 Essential (primary) hypertension Active Diagnosis [facility] Diagnosis: ICD-10-CM 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 [facility] Diagnosis: ICD-10-CM Z04.89 Encounter for examination and observation for oth reasons Active Diagnosis [facility] Diagnosis: ICD-10-CM Z23 Encounter for immunization Active Diagnosis [facility] Diagnosis: ICD-10-CM Z46.1 Encounter for fitting and adjustment of hearing aid Active Diagnosis [facility] Diagnosis: ICD-10-CM 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, bilateral, early dry stage Active Diagnosis [facility] Diagnosis: ICD-10-CM H35.3111 Nexdtve age-related mclr degn, right eye, early dry stage Active Diagnosis [facility] Diagnosis: ICD-10-CM S41.101D Unspecified open wound of right upper arm, subs encntr Active Diagnosis [facility] Diagnosis: ICD-10-CM S41.101A Unspecified open wound [...] DAILY NEEDED ORAL ACTIVE TOÑO CAI 2012 [facility] AMLODIPINE BESYLATE 2.5MG TAB TAKE ONE TABLET BY MOUTH ONCE DAILY ORAL ACTIVE TOÑO CAI 2023 [facility] AMLODIPINE BESYLATE 5MG TAB TAKE ONE TABLET BY MOUTH ONCE DAILY FOR BLOOD PRESSURE /HEART, DO NOT TAKE WITH GRAPEFRU IT JUICE ORAL 07/02/2023 [id number] 3 HOLLIS WESTON VIVIANE 2022 30 [facility] ASPIRIN 81MG TAB,EC TAKE ONE TABLET BY MOUTH ONCE DAILY ORAL ACTIVE TOÑO CAI 2023 [facility] ATORVASTATI N CA 80MG TAB TAKE ONE-HALF TABLET BY MOUTH ONCE DAILY ORAL ACTIVE 02/27/2025 [id number] 5 CUELLO,AL ICE 2023 45 [facility] ATORVASTATI N CA 80MG TAB TAKE ONE-HALF TABLET BY MOUTH ONCE DAILY ORAL DISCONT INUED 04/26/2024 [id number] 4 CUELLO,AL ICE 2022 45 [facility] CALCIUM 200MG (CA CITRATE-950 MG) TAB TAKE FOUR TABLETS BY MOUTH TWICE DAILY ORAL ACTIVE 11/27/2024 [id number] 4 CUELLO,AL ICE 2023 800 [facility] CALCIUM 200MG (CA CITRATE-950 MG) TAB TAKE FOUR TABLETS BY MOUTH TWICE DAILY ORAL DISCONT INUED 04/26/2024 [id number] 4 CUELLO,AL ICE 2022 720 [facility] CHOLECALCIF DERECK 50MCG (2,000UNIT) TAB TAKE ONE TABLET BY MOUTH ONCE DAILY ORAL ACTIVE TAN L[address] 2020 [facility] CITALOPRAM HYDROBROMID E 10MG TAB TAKE ONE-HALF TABLET BY MOUTH ONCE DAILY FOR DEPRESSI ON AND ANXIETY ORAL DISCONT INUED BY SALOME R 02/28/2025 [id number] 4 KALLIE HARPER 2023 45 [facility] [place] CITALOPRAM HYDROBROMID E 20MG TAB TAKE ONE-HALF TABLET BY MOUTH ONCE DAILY FOR MOOD ORAL DISCONT INUED (EDIT) 10/10/2024 [id number] 4 KALLIE HARPER UN 2023 45 [facility] CITALOPRAM HYDROBROMID E 20MG TAB TAKE ONE-HALF TABLET BY MOUTH ONCE DAILY FOR MOOD ORAL DISCONT INUED 09/29/2023 [id number] 4 KALLIE HARPER UN 2022 45 [facility] CYCLOBENZAP RINE HCL 10MG TAB TAKE ONE TABLET BY MOUTH TWICE DAILY ORAL ACTIVE CUELLO,AL ICE 2022 [facility] DENOSUMAB 60MG/ML INJ,SYRINGE ,1ML INJECT 60MG/1ML SUBCUTAN EOUSLY ONE TIME FOR OSTEOPOR OSIS SUBCUT ANEOUS 05/30/2024 [id number] 4 CUELLO,AL ICE 2023 1 [facility] DENOSUMAB 60MG/ML INJ,SYRINGE ,1ML INJECT 60MG/1ML SUBCUTAN EOUSLY ONE TIME FOR OSTEOPOR OSIS SUBCUT ANEOUS 11/17/2023 [id number] 4 CUELLO,AL ICE 2023 1 [facility] FUROSEMIDE 20MG TAB TAKE ONE TABLET BY MOUTH ONCE DAILY ORAL ACTIVE TOÑO CAI 2023 [facility] GABAPENTIN 600MG TAB TAKE ONE TABLET BY MOUTH THREE TIMES A DAY ORAL ACTIVE 09/30/2024 [id number] 5 GAGANDEEP COOPERED M 2024 270 [facility] GABAPENTIN 600MG TAB TAKE ONE TABLET BY MOUTH THREE TIMES A DAY ORAL 10/09/2023 [id number] 4 GAGANDEEP COOPERED M 2023 270 [facility] GLUCOSE 4GM TAB,CHEW CHEW ONE TABLET BY MOUTH EVERY DAY NEEDED FOR LOW BLOOD SUGAR ORAL ACTIVE 04/03/2025 [id number] 4 TOÑO CAI 2023 20 [facility] HYDROXYCHLO ROQUINE SO4 200MG TAB TAKE TWO TABLETS BY MOUTH ONCE DAILY 5 DAYS A WEEK, AND 1 TABLET DAILY 2 DAYS A WEEK. ORAL ACTIVE 08/19/2024 [id number] 4 GAGANDEEP COOPER 2023 144 [facility] HYDROXYCHLO ROQUINE SO4 200MG TAB TAKE ONE TABLET BY MOUTH ONCE DAILY ORAL DISCONT INUED 10/10/2024 [id number] 4 GAGANDEEP COOPER 2023 90 [facility] HYDROXYCHLO ROQUINE SO4 200MG TAB TAKE ONE TABLET BY MOUTH ONCE DAILY ORAL DISCONT INUED 02/11/2024 [id number] 3 GAGANDEEP COOPER 2022 90 [facility] INSULIN,ASP ART,HUMAN 100 UNT/ML INJ INJECT 80 UNITS SUBCUTAN EOUSLY EVERY DAY DIRECTED FOR USE WITH CONTINUO US SUBCUTAN EOUS INSULIN INFUSION DEVICE SUBCUT ANEOUS ACTIVE 09/01/2024 [id number] 4 TOÑO CAI 2023 8 [facility] INSULIN,ASP ART,HUMAN 100 UNT/ML INJ INJECT 80 UNITS SUBCUTAN EOUSLY EVERY DAY DIRECTED FOR USE WITH CONTINUO US SUBCUTAN EOUS INSULIN INFUSION DEVICE SUBCUT ANEOUS 04/17/2024 [id number] 4 TOÑO CAI 2022 8 [facility] KETOCONAZOL E 2% CREAM,TOP APPLY A THIN LAYER TOPICALL Y TWICE DAILY RASH APPLY TO AFFECTED AREAS ON FACE TWICE DAILY FOR 4 WEEKS, THEN NEEDED TOPICA L 07/13/2024 [id number] 4 VEGA PENA 2023 120 [facility] KETOCONAZOL E 2% SHAMPOO SHAMPOO SMALL AMOUNT TOPICALL Y TWICE A WEEK NEEDED APPLY FOR 8 WEEKS, THEN NEEDED TOPICA L 07/13/2024 [id number] 4 JEAN MARKVEGA 2023 240 [facility] LEFLUNOMIDE 10MG TAB TAKE ONE TABLET BY MOUTH ONCE DAILY FOR 14 DAYS, THEN TAKE TWO TABLETS ONCE DAILY ORAL DISCONT INUED 03/26/2025 [id number] 4 GAGANDEEP COOPER M 2023 60 [facility] LEFLUNOMIDE 20MG TAB TAKE ONE TABLET BY MOUTH ONCE DAILY ORAL 07/29/2024 [id number] 4 GAGANDEEP COOPER M 2023 90 [facility] [place]AN POTASSIUM 100MG TAB TAKE ONE TABLET BY MOUTH DAILY ORAL ACTIVE TOÑO CAI 2011 [facility] MULTIVIT/OP HTH AREDS2/LUTE IN/ZEAXANTH IN CAP/TAB TAKE 1 CAPSULE BY MOUTH TWICE DAILY IN THE MORNING AND EVENING, WITH FOOD ORAL ACTIVE 04/30/2025 [id number] 5 TOÑO CAI 2023 120 [facility] MULTIVIT/OP HTH AREDS2/LUTE IN/ZEAXANTH IN CAP/TAB TAKE 1 CAPSULE BY MOUTH TWICE DAILY IN THE MORNING AND EVENING, WITH FOOD ORAL DISCONT INUED 03/29/2024 [id number] 4 Garcia VALLADARES 2022 120 [facility] OMEPRAZOLE 20MG CAP,EC TAKE 1 CAPSULE BY MOUTH EVERY DAY ORAL ACTIVE ROLAND ACOSTA 2008 [facility] OXYCODONE HCL 5MG TAB TAKE ONE TABLET BY MOUTH EVERY 6 HOURS NEEDED FOR SEVERE PAIN ORAL 03/19/2024 [id number] 4 Ankit STODDARD 2023 16 [facility] OXYCODONE HCL 5MG/ACETAMI NOPHEN 325MG TAB TAKE 1 TABLET BY MOUTH EVERY 6 HOURS NEEDED FOR PAIN ORAL 01/31/2024 [id number] 4 JONH ARREDONDOISON Garcia 2023 5 [facility] PILOCARPINE HCL 5MG TAB TAKE ONE TABLET BY MOUTH TWICE DAILY ORAL ACTIVE TAN LANE 2020 [facility] PREDNISONE 10MG TAB TAKE ONE TABLET BY MOUTH ONCE DAILY ORAL DISCONT INUED 07/09/2024 [id number] 4 GAGANDEEP COOPER HAMED M 2023 90 [facility] PREDNISONE 10MG TAB TAKE ONE TABLET BY MOUTH ONCE DAILY ORAL DISCONT INUED 01/07/2024 [id number] 4 [facility]EP [facility]OPER [facility] PREDNISONE 1MG TAB TAKE FOUR TABLETS BY MOUTH ONCE DAILY ORAL DISCONT INUED 02/26/2025 [id number] 4 GAGANDEEP COOPER HAMED M 2023 120 [facility] PREDNISONE 1MG TAB TAKE FOUR TABLETS BY MOUTH ONCE DAILY ORAL DISCONT INUED 10/16/2024 [id number] 4 GAGANDEEP COOPER HAMED M 2023 120 [facility] PREDNISONE 1MG TAB TAKE ONE TABLET BY MOUTH ONCE DAILY ORAL DISCONT INUED 06/21/2024 [id number] 4 GAGANDEEP COOPER HAMED M 2023 60 [facility] PREDNISONE 1MG TAB TAKE 1 MG TABLETS BY MOUTH ONCE DAILY IN COMBINAT ION WITH 5MG TABLETS TO TAKE 9MG DAILY FOR 2 WEEKS, THEN REDUCE DOSE BY 1 MG EVERY 2 WEEKS ORAL DISCONT INUED 06/27/2023 [id number] 3 GAGANDEEP COOPER HAMED M 2022 140 [facility] PREDNISONE 2.5MG TAB TAKE THREE TABLETS BY MOUTH ONCE DAILY ORAL ACTIVE 04/30/2025 [id number] 5 MASTERGAGANDEEP LUNDBERG HAMED M 2023 90 [facility] PREDNISONE 5MG TAB TAKE 1 TABLET (5 MG) BY MOUTH ONCE DAILY IN COMBINAT ION WITH 1MG TABLETS TO TAKE 9 MG DAILY FOR 2 WEEKS, THEN REDUCE BY 1 MG EVERY 2 WEEKS ORAL 07/31/2023 [id number] 3 GAGANDEEP COOPER M 2022 90 [facility] [place] PSYLLIUM PWDR,ORAL TAKE 2 TEASPOON FULS BY MOUTH ONCE DAILY FOR CONSTIPA TION (MIX WITH AT LEAST 8OZ. OF WATER OR OTHER FLUID) ORAL ACTIVE 07/31/2025 [id number] 5 TOÑO CAI 2024 390 [facility] TAMSULOSIN HCL 0.4MG CAP TAKE TWO CAPSULES BY MOUTH AT BEDTIME ORAL ACTIVE 01/22/2025 [id number] 5 EM DEAN 2023 180 [facility] [place] [facility] TAMSULOSIN HCL 0.4MG CAP TAKE ONE CAPSULE BY MOUTH AT BEDTIME FOR ENLARGED PROSTATE ORAL DISCONT INUED 10/10/2024 [id number] 4 TOÑO CAI 2023 90 [facility] TAMSULOSIN HCL 0.4MG CAP TAKE ONE CAPSULE BY MOUTH AT BEDTIME FOR ENLARGED PROSTATE ORAL DISCONT INUED (EDIT) 04/12/2024 [id number] 4 TOÑO CAI 2022 30 [facility] [place] [facility] TESTOSTERON E CYPIONATE 200MG/ML INJ,1ML (IN OIL) INJECT 0.3ML (60MG) INTRAMUS CULARLY EVERY 7 DAYS FOR LOW TESTOSTE JAGDISH INTRAM USCULA R DISCONT INUED BY PROVIDE R 01/26/2024 [id number] 4 CUELLO,AL ICE 2023 4 [facility] TESTOSTERON E CYPIONATE 200MG/ML INJ,1ML (IN OIL) INJECT 0.3ML (60MG) INTRAMUS CULARLY EVERY 7 DAYS FOR LOW TESTOSTE JAGDISH INTRAM USCULA R DISCONT INUED 10/28/2023 [id number] 4 CUELLO,AL ICE 2022 4 [facility] TOCILIZUMAB 162MG/0.9ML INJ,SYRINGE ,0.9ML INJECT 162MG SUBCUTAN EOUSLY EVERY 2 WEEKS SUBCUT ANEOUS ACTIVE 04/12/2025 [id number] 5 GAGANDEEP COOPERED M 2023 2 [facility] TOCILIZUMAB 162MG/0.9ML INJ,SYRINGE ,0.9ML INJECT 162MG SUBCUTAN EOUSLY EVERY 2 WEEKS SUBCUT ANEOUS DISCONT INUED 11/17/2024 [id number] 4 SARIAH [place] 2023 2 [facility] TOCILIZUMAB 162MG/0.9ML INJ,SYRINGE ,0.9ML INJECT 162MG SUBCUTAN EOUSLY EVERY 2 WEEKS SUBCUT ANEOUS DISCONT INUED 08/28/2024 [id number] 4 GAGANDEEP COOPERED M 2023 2 [facility] TOCILIZUMAB 162MG/0.9ML INJ,SYRINGE ,0.9ML INJECT 162MG SUBCUTAN EOUSLY EVERY 2 WEEKS SUBCUT ANEOUS DISCONT INUED 06/07/2024 [id number] 4 GAGANDEEP COOPERED M 2022 2 [facility] TOCILIZUMAB 162MG/0.9ML INJ,SYRINGE ,0.9ML INJECT 162MG SUBCUTAN EOUSLY EVERY 2 WEEKS SUBCUT ANEOUS DISCONT INUED 06/14/2023 [id number] 3 SARIAH [place] 2022 1 [facility] Allergies, Adverse Reactions, Alerts Combined [...] Site Reaction Lot Number CVX Code Drug Chicken Tender Status Comments Source INFLUENZA, UNSPECIFIED FORMULATION 2023 88 complet ed [facility] COVID-19 (MODERNA), MRNA, LNP-S, PF, 50 MCG/0.5 ML (AGES 12+ YEARS) 1 2022 ZA THAO HY E RIGHT DELTO ID [id number] 312 complet ed [facility] INFLUENZA, HIGH-DOSE, QUADRIVALENT 2022 [employer] ROBOT HY E LEFT DELTO ID [id number] 197 complet ed [facility] [place] DOSE 2 2020 207 complet ed MOD; [id number]; 1 [facility] COVID-19 (MODERNA), MRNA, LNP-S, PF, 100 MCG/0.5 ML DOSE 1 2020 207 complet ed MOD; [id number]; 1 [facility] [...] Reference Range Date Interpretation Specimen Comments Source CBC AND DIFF (AUTO) LEUKOCYTES [#/VOLUME] IN BLOOD BY AUTOMATED COUNT 4.91 10*3/u L 4.50 - 11.00 06/17 Specimen Type: BLOOD No comment entered. Ordering Provider: Jameson CAI Report Released Date/Time: Jun 17, 2024 11:07 AM Reporting Lab: [facility] [place] [facility] [address] [facility] [address] Performing Lab: [facility] [place] [facility] [address] [facility] [address] [facility] CBC AND DIFF (AUTO) ERYTHROCYTE S [#/VOLUME] IN BLOOD BY AUTOMATED COUNT 4.38 10*6/u L 4.23 - 5.66 06/17 Specimen Type: BLOOD No comment entered. Ordering Provider: Jameson CAI Report Released Date/Time: Jun 17, 2024 11:07 AM Reporting Lab: [facility] [place] [facility] [address] [facility] [address] Performing Lab: [facility] [place] [facility] [address] [facility] [address] [facility] CBC AND DIFF (AUTO) HEMOGLOBIN [MASS/VOLUM E] IN BLOOD 13.2 g/dL 12.8 - 17 06/17 Specimen Type: BLOOD No comment entered. Ordering Provider: Jameson CAI Report Released Date/Time: Jun 17, 2024 11:07 AM Reporting Lab: [facility] [place] [facility] [address] [facility] [address] Performing Lab: [facility] [place] [facility] [address] [facility] [address] [facility] CBC AND DIFF (AUTO) HEMATOCRIT [VOLUME FRACTION] OF BLOOD BY AUTOMATED COUNT 39.7 39.2 - 50.4 06/17 Specimen Type: BLOOD No comment entered. Ordering Provider: Jameson CAI Report Released Date/Time: Jun 17, 2024 11:07 AM Reporting Lab: [facility] [place] [facility] [address] [facility] [address] Performing Lab: [facility] [place] [facility] [address] [facility] [address] [facility] CBC AND DIFF (AUTO) MCV [ENTITIC VOLUME] BY AUTOMATED COUNT 90.6 fL 82 - 99 06/17 Specimen Type: BLOOD No comment entered. Ordering Provider: Jameson CAI Report Released Date/Time: Jun 17, 2024 11:07 AM Reporting Lab: [facility] [place] [facility] [address] [facility] [address] Performing Lab: [facility] [place] [facility] [address] [facility] [address] [facility] CBC AND DIFF (AUTO) MCHC [MASS/VOLUM E] BY AUTOMATED COUNT 33.2 g/dL 30.8 - 35.1 06/17 Specimen Type: BLOOD No comment entered. Ordering Provider: Jameson CAI Report Released Date/Time: Jun 17, 2024 11:07 AM Reporting Lab: [facility] [place] [facility] [address] [facility] [address] Performing Lab: [facility] [place] [facility] [address] [facility] [address] [facility] [facility] CBC AND DIFF (AUTO) PLATELETS [#/VOLUME] IN BLOOD BY AUTOMATED COUNT 112 10*3/u L 140 - 360 06/17 L Specimen Type: BLOOD No comment entered. Ordering Provider: Jameson CAI Report Released Date/Time: Jun 17, 2024 11:07 AM Reporting Lab: [facility] [place] [address] [address] Performing Lab: [facility] [place] [facility] [address] [facility] [address] [facility] [facility] CBC AND DIFF (AUTO) ERYTHROCYTE DISTRIBUTIO N WIDTH [RATIO] BY AUTOMATED COUNT 14.0 12.0 - 16.0 06/17 Specimen Type: BLOOD No comment entered. Ordering Provider: Jameson CAI Report Released Date/Time: Jun 17, 2024 11:07 AM Reporting Lab: [facility] [place] [address] [address] Performing Lab: [facility] [place] [facility] [address] [facility] [address] [facility] [place] [facility] CBC AND DIFF (AUTO) MONOCYTES [#/VOLUME] IN BLOOD BY AUTOMATED COUNT 1.09 10*3/u L 0.30 - 1.10 06/17 Specimen Type: BLOOD No comment entered. Ordering Provider: Jameson CAI Report Released Date/Time: Jun 17, 2024 11:07 AM Reporting Lab: [facility] [place] [facility] [address] [facility] [address] Performing Lab: [facility] [place] [address] [address] [facility] CBC AND DIFF (AUTO) MCH [ENTITIC MASS] BY AUTOMATED COUNT 30.1 pg 26.2 - 32.6 06/17 Specimen Type: BLOOD No comment entered. Ordering Provider: Jameson CAI Report Released Date/Time: Jun 17, 2024 11:07 AM Reporting Lab: [facility] [address] [facility] [address] Performing Lab: [facility] [address] [facility] [address] [facility] CBC AND DIFF (AUTO) NEUTROPHILS /100 LEUKOCYTES IN BLOOD BY AUTOMATED COUNT 53.4 43.7 - 75.8 06/17 Specimen Type: BLOOD No comment entered. Ordering Provider: Jameson CAI Report Released Date/Time: Jun 17, 2024 11:07 AM Reporting Lab: [facility] [place] [facility] [address] [facility] [address] Performing Lab: [facility] [place] [facility] [address] [facility] [address] [facility] CBC AND DIFF (AUTO) LYMPHOCYTES /100 LEUKOCYTES IN BLOOD BY AUTOMATED COUNT 23.0 14.0 - 42.3 06/17 Specimen Type: BLOOD No comment entered. Ordering Provider: Jameson CAI Report Released Date/Time: Jun 17, 2024 11:07 AM Reporting Lab: [facility] [place] [facility] [address] [facility] [address] Performing Lab: [facility] [place] [facility] [address] [facility] [address] [facility] CBC AND DIFF (AUTO) MONOCYTES/1 00 LEUKOCYTES IN BLOOD BY AUTOMATED COUNT 22.2 5.1 - 13.7 06/17 H Specimen Type: BLOOD No comment entered. Ordering Provider: Jameson CAI Report Released Date/Time: Jun 17, 2024 11:07 AM Reporting Lab: [facility] [address] [facility] [address] Performing Lab: [facility] [address] [facility] [address] [facility] CBC AND DIFF (AUTO) EOSINOPHILS /100 LEUKOCYTES IN BLOOD BY AUTOMATED COUNT 0.6 0.4 - 6.8 06/17 Specimen Type: BLOOD No comment entered. Ordering Provider: Jameson CAI Report Released Date/Time: Jun 17, 2024 11:07 AM Reporting Lab: [facility] [address] [facility] [address] Performing Lab: [facility] [place] [facility] [address] [facility] [address] [facility] CBC AND DIFF (AUTO) BASOPHILS/1 00 LEUKOCYTES IN BLOOD BY AUTOMATED COUNT 0.6 0.1 - 2.0 06/17 Specimen Type: BLOOD No comment entered. Ordering Provider: Jameson CAI Report Released Date/Time: Jun 17, 2024 11:07 AM Reporting Lab: [facility] [place] [facility] [address] [facility] [address] Performing Lab: [facility] [facility] [address] [facility] [address] [facility] CBC AND DIFF (AUTO) NEUTROPHILS [#/VOLUME] IN BLOOD BY AUTOMATED COUNT 2.62 10*3/u L 2.20 - 7.60 06/17 Specimen Type: BLOOD No comment entered. Ordering Provider: Jameson CAI Report Released Date/Time: Jun 17, 2024 11:07 AM Reporting Lab: [facility] [place] [facility] [address] [facility] [address] Performing Lab: [facility] [place] [facility] [address] [facility] [address] [facility] CBC AND DIFF (AUTO) LYMPHOCYTES [#/VOLUME] IN BLOOD BY AUTOMATED COUNT 1.13 10*3/u L 1.00 - 3.20 06/17 Specimen Type: BLOOD No comment entered. Ordering Provider: Jameson CAI Report Released Date/Time: Jun 17, 2024 11:07 AM Reporting Lab: [facility] [place] [facility] [address] [facility] [address] Performing Lab: [facility] [address] [address] [facility] CBC AND DIFF (AUTO) EOSINOPHILS [#/VOLUME] IN BLOOD BY AUTOMATED COUNT 0.03 10*3/u L 0.03 - 0.44 06/17 Specimen Type: BLOOD No comment entered. Ordering Provider: Jameson CAI Report Released Date/Time: Jun 17, 2024 11:07 AM Reporting Lab: [facility] [address] [facility] [address] Performing Lab: [facility] [place] [facility] [address] [facility] [address] [facility] CBC AND DIFF (AUTO) BASOPHILS [#/VOLUME] IN BLOOD BY AUTOMATED COUNT 0.03 10*3/u L 0.01 - 0.13 06/17 Specimen Type: BLOOD No comment entered. Ordering Provider: Jameson CAI Report Released Date/Time: Jun 17, 2024 11:07 AM Reporting Lab: [facility] [address] [facility] [address] Performing Lab: [facility] [place] [facility] [address] [facility] [address] [facility] CBC AND DIFF (AUTO) IMMATURE GRANULOCYTE S/100 LEUKOCYTES IN BLOOD BY AUTOMATED COUNT 0.2 0.0 - 0.7 06/17 Specimen Type: BLOOD No comment entered. Ordering Provider: Jameson CAI Report Released Date/Time: Jun 17, 2024 11:07 AM Reporting Lab: [facility] [place] [facility] [address] [facility] [address] Performing Lab[facility] [address] [facility] [address] [facility] CBC AND DIFF (AUTO) IMMATURE GRANULOCYTE S [#/VOLUME] IN BLOOD 0.01 10*3/u L 0.00 - 0.06 06/17 Specimen Type: BLOOD No comment entered. Ordering Provider: Jameson CAI Report Released Date/Time: Jun 17, 2024 11:07 AM Reporting Lab: [facility] [place] [facility] [address] [facility] [address] Performing Lab: [facility] [place] [facility] [address] [facility] [address] [facility] CBC AND DIFF (AUTO) NRBC % 0.0 0.0 - 0.0 06/17 Specimen Type: BLOOD No comment entered. Ordering Provider: Jameson CAI Report Released Date/Time: Jun 17, 2024 11:07 AM Reporting Lab: [facility] [place] [facility] [address] [facility] [address] Performing Lab: [facility] [place] [facility] [address] [facility] [address] [facility] [place] [facility] CBC AND DIFF (AUTO) NRBC, ABS 0.00 10*3/u L 0.00 - 0.00 06/17 Specimen Type: BLOOD No comment entered. Ordering Provider: Jameson CAI Report Released Date/Time: Jun 17, 2024 11:07 AM Reporting Lab: [facility] [place] [facility] [address] [facility] [address] Performing Lab: [facility] [place] [facility] [address] [facility] [address] [facility] [place] FERRITIN FERRITIN [MASS/VOLUM E] IN SERUM OR PLASMA 37 ng/mL 20 - 300 06/17 Specimen Type: SERUM No comment entered. Ordering Provider: Jameson CAI Report Released Date/Time: Jun 17, 2024 11:07 AM Reporting Lab: [facility] [place] [facility] [address] [facility] [address] Performing Lab: [facility] [place] [facility] [address] [facility] [address] [facility] [place] [facility] IRON & TIBC PANEL IRON BINDING CAPACITY [MASS/VOLUM E] IN SERUM OR PLASMA 374 ug/dL 204 - 475 06/17 Specimen Type: SERUM No comment entered. Ordering Provider: Jameson CAI Report Released Date/Time: Jun 17, 2024 11:07 AM Reporting Lab: [facility] [place] [facility] [address] [facility] [address] Performing Lab: [facility] [place] [facility] [address] [facility] [address] [facility] [place] [facility] IRON & TIBC PANEL IRON [MASS/VOLUM E] IN SERUM OR PLASMA 172 ug/dL 40 - 160 06/17 H Specimen Type: SERUM No comment entered. Ordering Provider: Jameson CAI Report Released Date/Time: Jun 17, 2024 11:07 AM Reporting Lab: [facility] [place] [facility] [address] [facility] [address] Performing Lab: [facility] [place] [facility] [address] [facility] [address] [facility] [facility] IRON & TIBC PANEL IRON/IRON BINDING CAPACITY.TO MASTER [MASS RATIO] IN SERUM OR PLASMA 46.0 20.0 - 50.0 06/17 Specimen Type: SERUM No comment entered. Ordering Provider: Jameson CAI Report Released Date/Time: Jun 17, 2024 11:07 AM Reporting Lab: [facility] [place] [facility] [address] [facility] [address] Performing Lab: [facility] [place] [facility] [address] [facility] [address] [facility] [place] [facility] IRON & TIBC PANEL TRANSFERRIN [MASS/VOLUM E] IN SERUM OR PLASMA 283 mg/dL 200 - 360 06/17 Specimen Type: SERUM No comment entered. Ordering Provider: Jameson CAI Report Released Date/Time: Jun 17, 2024 11:07 AM Reporting Lab: [facility] [place] [facility] [address] [facility] [address] Performing Lab: [facility] [place] [facility] [address] [facility] [address] [facility] [place] [facility] BASIC METABOLIC PANEL (non-fast ing) UREA NITROGEN [MASS/VOLUM E] IN SERUM OR PLASMA 19 mg/dL 7 - 25 06/04 Specimen Type: SERUM No comment entered. Ordering Provider: Jameson CAI Report Released Date/Time: May 29, 2024 06:36 PM Reporting [facility]: [facility] [address] [address] Performing Lab: [facility] [address] [address] [facility] BASIC METABOLIC PANEL (non-fast ing) GLUCOSE [MASS/VOLUM E] IN SERUM OR PLASMA 187 mg/dL 65 - 100 06/04 H Specimen Type: SERUM No comment entered. Ordering Provider: Jameson CAI Report Released Date/Time: May 29, 2024 06:36 PM Reporting Lab: [address] [address] Performing Lab: [facility] [address] [address] [facility] BASIC METABOLIC PANEL (non-fast ing) SODIUM [MOLES/VOLU ME] IN SERUM OR PLASMA 140 mmol/L 135 - 145 06/04 Specimen Type: SERUM No comment entered. Ordering Provider: Jameson CAI Report Released Date/Time: May 29, 2024 06:36 PM Reporting Lab: [facility] [address] [address] Performing Lab: [facility] [address] [address] [facility] BASIC METABOLIC PANEL (non-fast ing) POTASSIUM [MOLES/VOLU ME] IN SERUM OR PLASMA 3.8 mmol/L 3.5 - 5.0 06/04 Specimen Type: SERUM No comment entered. Ordering Provider: Jameson CAI Report Released Date/Time: May 29, 2024 06:36 PM Reporting Lab: [facility] [address] [place] [address] Performing Lab: [facility] [address] [facility] [address] [facility] BASIC METABOLIC PANEL (non-fast ing) CHLORIDE [MOLES/VOLU ME] IN SERUM OR PLASMA 103 mmol/L 100 - 110 06/04 Specimen Type: SERUM No comment entered. Ordering Provider: Jameson CAI Report Released Date/Time: May 29, 2024 06:36 PM Reporting Lab: [facility] [address] [facility] [address] Performing Lab: [facility]ITALN [facility]ENTERUSE[address] [address] [facility] BASIC METABOLIC PANEL (non-fast ing) CARBON DIOXIDE, TOTAL [MOLES/VOLU ME] IN SERUM OR PLASMA 25 meq/L 20 - 30 06/04 Specimen Type: SERUM No comment entered. Ordering Provider: Jameson CAI Report Released Date/Time: May 29, 2024 06:36 PM Reporting Lab: [facility] [address] [address] Performing Lab: [facility]ENTERUSE[address] [address] [facility] BASIC METABOLIC PANEL (non-fast ing) CREATININE [MASS/VOLUM E] IN SERUM OR PLASMA 0.97 mg/dL 0.50 - 1.40 06/04 Specimen Type: SERUM No comment entered. Ordering Provider: Jameson CAI Report Released Date/Time: May 29, 2024 06:36 PM Reporting Lab: [facility]TRN [facility]ENTERUSE[address] [address] Performing Lab: [facility]N [facility]ENTERUSE[address] [address] [facility]ITALN [facility] BASIC METABOLIC PANEL (non-fast ing) GLOMERULAR FILTRATION RATE/1.73 SQ M.PREDICTED [VOLUME RATE/AREA] IN SERUM, PLASMA OR BLOOD BY CREATININE- BASED FORMULA (CKD-EPI 2020) 76 mL/min 60 06/04 Specimen Type: SERUM No comment entered. Ordering Provider: Jameson CAI Report Released Date/Time: May 29, 2024 06:36 PM Reporting Lab: [facility] [address] [facility] [address] Performing Lab: [facility] [address] [facility] [address] [facility] HEMOGLOBI N A1C PANEL HEMOGLOBIN A1C/HEMOGLO BIN.TOTAL [...] May 29, 2024 06:36 PM Reporting Lab: [facility] [address] [facility] [address] Performing Lab: [facility] [address] [facility] [address] [facility] LIPID PANEL, NON FASTING CHOLESTEROL [MASS/VOLUM E] IN SERUM OR PLASMA 151 mg/dL 06/04 Specimen Type: SERUM No comment entered. Ordering Provider: Jameson CAI Report Released Date/Time: May 29, 2024 06:36 PM Reporting Lab: [facility] [address] [facility] [address] Performing Lab: [address] [address] [facility] LIPID PANEL, NON FASTING TRIGLYCERID E [MASS/VOLUM E] IN SERUM OR PLASMA 146 mg/dL 0 - 150 12/17 /2024 Specimen Type: SERUM No comment entered. Ordering Provider: Jameson CAI Report Released Date/Time: May 29, 2024 06:36 PM Reporting Lab: [facility] [place] [facility] [address] [facility] [address] Performing Lab: [facility] [place] [facility] [address] [facility] [address] [facility] LIPID PANEL, NON FASTING CHOLESTEROL IN LDL [MASS/VOLUM E] IN SERUM OR PLASMA BY CALCULATION 73 mg/dL 0 - 129 06/04 Specimen Type: SERUM No comment entered. Ordering Provider: Jameson CAI Report Released Date/Time: May 29, 2024 06:36 PM Reporting Lab: [facility] [place] [facility] [address] [facility] [address] Performing Lab: [facility] [place] [address] [address] [facility] LIPID PANEL, NON FASTING CHOLESTEROL .TOTAL/CHOL ESTEROL IN HDL [MASS RATIO] IN SERUM OR PLASMA 3.1 06/04 Specimen Type: SERUM No comment entered. Ordering Provider: Jameson CAI Report Released Date/Time: May 29, 2024 06:36 PM Reporting Lab: [facility] [place] [facility] [address] [facility] [address] Performing Lab: [facility] [place] [facility] [address] [facility] [address] [facility] [place] [facility] LIPID PANEL, NON FASTING CHOLESTEROL IN HDL [MASS/VOLUM E] IN SERUM OR PLASMA 49 mg/dL 40 - 60 06/04 Specimen Type: SERUM No comment entered. Ordering Provider: Jameson CAI Report Released Date/Time: May 29, 2024 06:36 PM Reporting Lab: [facility] [place] [facility] [address] [facility] [address] Performing Lab: [facility] [place] [facility] [address] [facility] [address] [facility] [place] [facility] LIVER FUNCTION PROTEIN [MASS/VOLUM E] IN SERUM OR PLASMA 5.5 g/dL 6.0 - 8.3 06/04 L Specimen Type: SERUM No comment entered. Ordering Provider: Jameson CAI Report Released Date/Time: May 29, 2024 06:36 PM Reporting Lab: [facility] [place] [facility] [address] [facility] [address] Performing Lab: [facility] [place] [facility] [address] [facility] [address] [facility] LIVER FUNCTION ALBUMIN [MASS/VOLUM E] IN SERUM OR PLASMA 3.7 g/dL 3.5 - 5.0 06/04 Specimen Type: SERUM No comment entered. Ordering Provider: Jameson CAI Report Released Date/Time: May 29, 2024 06:36 PM Reporting Lab: [facility]ENTERUSE[address] [address] Performing Lab: [facility] [place] [address] [address] [facility] W[facility] LIVER FUNCTION ALKALINE PHOSPHATASE [ENZYMATIC ACTIVITY/VO LUME] IN SERUM OR PLASMA 78 U/L 40 - 150 06/04 Specimen Type: SERUM No comment entered. Ordering Provider: Jameson CAI Report Released Date/Time: May 29, 2024 06:36 PM Reporting Lab: [facility] [place] [address] [address] Performing Lab: [facility] [place] [address] [address] [facility] LIVER FUNCTION ASPARTATE AMINOTRANSF ERASE [ENZYMATIC ACTIVITY/VO LUME] IN SERUM OR PLASMA 20 U/L 5 - 34 06/04 Specimen Type: SERUM No comment entered. Ordering Provider: Jameson CAI Report Released Date/Time: May 29, 2024 06:36 PM Reporting Lab: [facility] [place] [address] [address] Performing Lab: [facility] [place] [facility] [address] [facility] [address] [facility] LIVER FUNCTION ALANINE AMINOTRANSF ERASE [ENZYMATIC ACTIVITY/VO LUME] IN SERUM OR PLASMA 19 U/L 06/04 Specimen Type: SERUM No comment entered. Ordering Provider: Jameson CAI Report Released Date/Time: May 29, 2024 06:36 PM Reporting Lab: [facility] [place] [facility] [address] [facility] [address] Performing Lab: [facility] [place] [facility] [address] [facility] [address] [facility] [facility] LIVER FUNCTION BILIRUBIN.T OTAL [MASS/VOLUM E] IN SERUM OR PLASMA 1.3 mg/dL 0.2 - 1.2 06/04 H Specimen Type: SERUM No comment entered. Ordering Provider: Jameson CAI Report Released Date/Time: May 29, 2024 06:36 PM Reporting Lab: [facility] [place] [facility] [address] [facility] [address] Performing Lab: [facility] [place] [facility] [address] [facility] [address] [facility] [place] LIVER FUNCTION BILIRUBIN.D IRECT [MASS/VOLUM E] IN SERUM OR PLASMA 0.5 mg/dL 0 - 0.5 06/04 Specimen Type: SERUM No comment entered. Ordering Provider: Jameson CAI Report Released Date/Time: May 29, 2024 06:36 PM Reporting Lab: [facility] [place] [facility] [address] [facility] [address] Performing Lab: [facility] [place] [facility] [address] [facility] [address] [facility] MICROALBU MIN CREATININ E RATIO PANEL MICROALBUMI N/CREATININ E [MASS RATIO] IN URINE 36.0 mg/g 0 - 29.9 06/04 H Specimen Type: URINE No comment entered. Ordering Provider: Jameson CAI Report Released Date/Time: May 29, 2024 06:36 PM Reporting Lab: [facility] [place] [facility] [address] [facility] [address] Performing Lab: [facility] [place] [facility] [address] [facility] [address] [facility] [place] [facility] MICROALBU MIN CREATININ E RATIO PANEL MICROALBUMI N [MASS/VOLUM E] IN URINE 2.8 mg/dL 06/04 Specimen Type: URINE No comment entered. Ordering Provider: Jameson CAI Report Released Date/Time: May 29, 2024 06:36 PM Reporting Lab: [facility] [place] [facility] [address] [facility] [address] Performing Lab: [facility] [place] [address] [address] [facility] [place] [facility] MICROALBU MIN CREATININ E RATIO PANEL CREATININE [MASS/VOLUM E] IN URINE 77.84 mg/dL 06/04 Specimen Type: URINE No comment entered. Ordering Provider: Jameson CAI Report Released Date/Time: May 29, 2024 06:36 PM Reporting Lab: [facility] [place] [address] [address] Performing Lab: [facility] [place] [address] [address] [facility] [place] [facility] TSH THYROTROPIN [UNITS/VOLU ME] IN SERUM OR PLASMA 1.78 u[IU]/ mL 0.35 - 5.00 06/04 Specimen Type: SERUM No comment entered. Ordering Provider: Jameson CAI Report Released Date/Time: May 29, 2024 06:36 PM Reporting Lab: [facility] [place] [address] [address] Performing Lab: [facility] [place] [address] [address] [facility] [place] [facility] TESTOSTER ONE, TOTAL (WHV) TESTOSTERON E [MASS/VOLUM E] IN SERUM OR PLASMA 44.33 ng/dL 220.00 - 892.00 05/08 L Specimen Type: SERUM No comment entered. Ordering Provider: Jameson CAI Report Released Date/Time: Aug 11, 2023 11:52 AM Reporting Lab: [facility] [place] [facility] [address] [facility] [address] Performing Lab: [facility] [place] [facility] [address] [facility] [address] [facility] [place] [facility] Vital Signs Combined list of inpatient and outpatient Vital Signs from Department of Defense and Veterans Affairs, ranging from 12 months to all on record, depending upon the facility. Vital Sign Value Date Comments Source SYSTOLIC BLOOD PRESSURE 93 07/05/19 25 10:58:41 [facility] DIASTOLIC BLOOD PRESSURE 50 025 10:58:41 [facility] PAIN 10 07/05/2024 10:58:41 [facility] [place] SYSTOLIC BLOOD PRESSURE 126 06/17/20 24 10:35:55 [facility] [place] DIASTOLIC BLOOD PRESSURE 74 024 10:35:55 [facility] [place] PULSE OXIMETRY 94 06/17/2024 10:35:55 [facility] WEIGHT 166.3 06/17/2024 10:35:55 [facility] BMI 28 kg/m2 06/17/2024 10:35:55 [facility] PAIN 6 06/17/2024 10:35:55 [facility] HEIGHT 64.5 06/17/2024 10:35:55 [facility] TEMPERATURE 97.8 06/17/2024 10:35:55 [facility] PULSE 63 06/17/2024 10:35:55 [facility] RESPIRATION 16 06/17/2024 10:35:55 [facility] [place] SYSTOLIC BLOOD PRESSURE 108 05/29/20 24 11:19:00 [facility] [place] DIASTOLIC BLOOD PRESSURE 55 024 11:19:00 [facility] [place] PULSE OXIMETRY 94 05/29/2024 11:19:00 [facility] WEIGHT 173 05/29/2024 11:19:00 [facility] BMI 29 kg/m2 05/29/2024 11:19:00 [facility] PAIN 5 05/29/2024 11:19:00 [facility] HEIGHT 64.5 05/29/2024 11:19:00 [facility] [...] 14:02:41 [facility] [place] BMI 30 kg/m2 04/02/2024 14:02:41 [facility] [place] [...] 10:00:01 [facility] BMI 30 kg/m2 02/12/2024 10:00:01 [facility] PAIN 0 02/12/2024 10:00:01 [facility] TEMPERATURE 98.4 02/12/2024 10:00:01 [facility] PULSE 88 02/12/2024 10:00:01 [facility] RESPIRATION 16 02/12/2024 10:00:01 [facility] Encounters Combined list of: 1) Encounters from Department of Veterans Affairs facilities going backup to the last 18 months, not all VA inpatient encounters are included; 2) Encounters from the Department of Defense facilities going backup to 280 months. 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, recurre nt, mild GUSTAVOSHANTI Cazares T 02/01 [place] [facility] [place] [facility] FEE [id number] Diagnos is: ICD-10- CM F33.0 Major depress marc disorde r, recurre nt, mild GUSTAVOSHANTI Cazares T 02/01 [facility] [place] [facility] [place] [facility] Outpatient Encounter [id number] GUSTAVOSHANTI Cazares T 02/01 [facility] En[facility] [id number] 02/02 [facility] En[facility] [id number] 02/09 [facility] OFF/OP EST MAY X REQ PHY/QHP [id number] Diagnos is: ICD-10- CM S41.101 A Unspeci fied open wound of right upper arm, initial encount er LEVCHAD,SI ERRA L 02/13 [facility] OFF/OP EST MAY X REQ PHY/QHP [id number] Diagnos is: ICD-10- CM S41.101 D Unspeci fied open wound of right upper arm, subs encntr MIKHAILBAYLEE,L AUREN M 02/22 [facility] CPTR OPHTH DX IMG POST SEGMT [id number] Diagnos is: ICD-10- CM 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, right eye, early dry stage ANALI VALLADARES E 03/22 [facility] DETERMINE REFRACTIVE STATE [id number] Diagnos is: ICD-10- CM 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, bilater al, early dry stage ANALI VALLADARES E 03/22 [facility] FIT SPECTACLES MULTIFOCAL [id number] Diagnos is: ICD-10- CM Z46.0 Encount er for fit/adj st of spectac les and contact lenses CLEMENTEARLE SHANNAN ANUM 03/22 [facility] OFFICE O/P EST LOW 20-29 MIN [id number] Diagnos is: ICD-10- CM I10 Essenti al (primar y) hyperte nsion TOÑO CAI 03/24 [facility] En[facility] [id number] 03/24 [facility] En[facility] [id number] 03/25 [facility] Encounter [id number] 03/28 [facility] OFFICE O/P EST LOW 20-29 MIN [id number] Diagnos is: ICD-10- CM 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 VEGA PENA 04/04 [facility] Out[facility] Encounter [id number] 04/17 [facility] HEARING AID REPAIR/MOD IFYING [id number] Diagnos is: ICD-10- CM Z46.1 Encount er for fitting and adjustm ent of hearing aid EVERTON BOYD 04/21 [facility] OFF/OP EST MAY X REQ PHY/QHP [id number] Diagnos is: ICD-10- CM Z23 Encount er for immuniz ation LIDA THAO E 04/21 [facility] OFF/OP EST MAY X REQ PHY/QHP [id number] Diagnos is: ICD-10- CM 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 ASHER ARIASN Mikey M 04/26 [facility] OFFICE O/P EST MOD 30-39 MIN [id number] Diagnos is: ICD-10- CM 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 JAYLEN CUELLO CE 04/26 [facility] OFF/OP EST MAY X REQ PHY/QHP [id number] Diagnos is: ICD-10- CM E11.8 Type 2 diabete s mellitu s with unspeci fied complic ations MAINE ARIAS M 04/26 [facility] OFFICE O/P EST LOW 20-29 MIN [id number] Diagnos is: ICD-10- CM 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, recurre nt, unspeci fied MEREDITH,GIHYU N 04/26 [place] [facility] FEE [id number] Diagnos is: ICD-10- CM 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, recurre nt, unspeci fied MEREDITH,GIHYU N 04/26 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 ENE MELENDEZ A 04/26 [facility] CONT GLUC MNTR ANALYSIS I&R [id number] Diagnos is: ICD-10- CM E11.8 Type 2 diabete s mellitu s with unspeci fied complic ations JAYLEN CUELLO 04/26 [facility] OFF/OP EST OCTOBER X REQ PHY/QHP [id number] Diagnos is: ICD-10- CM 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 MAINE ARIAS M 05/16 [facility] Outpatient Encounter [id number] 06/02 [facility] OFFICE O/P EST MOD 30-39 MIN [id number] Diagnos is: ICD-10- CM E11.8 Type 2 diabete s mellitu s with unspeci fied complic ations TOÑO CAI 06/05 [facility] Outpatient Encounter [id number] Diagnos is: ICD-10- CM Z04.89 Encount er for examina tion and observa tion for oth reasons ROHINI RAMIREZ 06/09 [facility] Outpatient Encounter [id number] Diagnos is: ICD-10- CM D80.1 Nonfami lial hypogam maglobu RAMONA Rivera MD 06/23 [facility] OFFICE O/P EST MOD 30 MIN [id number] Diagnos is: ICD-10- CM 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, recurre nt, unspeci fied MEREDITH,GIHYU N 07/12 [facility] FEE [id number] Diagnos is: ICD-10- CM 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, recurre nt, unspeci fied MEREDITH,GIHYU N 07/12 [facility] Outpatient Encounter [id number] 07/12 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 Outpatient Encounter [id number] 07/29 [facility] OFFICE O/P EST MOD 30 MIN [id number] Diagnos is: ICD-10- CM I10 Essenti al (primar y) hyperte TOÑO Flood 08/11 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, unspeci TOÑO Murray 10/08 [facility] Outpatient Encounter [id number] 10/08 [facility] OFFICE O/P EST HI 40 MIN [id number] [id number] Diagnos is: ICD-10- CM 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 VEGA PENA 10/09 [facility] Outpatient Encounter [id number] Diagnos is: ICD-10- CM E29.1 Testicu lar hypofun ctJAYLEN Estrada 10/10 [facility] Outpatient Encounter [id number] LESTER ANDERSON MD 10/11 [facility] DENOSUMAB INJECTION [id number] Diagnos is: ICD-10- CM 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 MAINE ARIAS 10/17 [facility] OFFICE O/P EST LOW 20 MIN [id number] Diagnos is: ICD-10- CM 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, recurre nt, unspeci fied MEREDITH,GIHYU N 10/31 [place] [facility] OFFICE O/P EST LOW 20 MIN [id number] Diagnos is: ICD-10- CM F33.0 Major depress marc disorde r, recurre nt, mild MEREDITH,GIHYU N 10/31 [facility] OFF/OP EST MAY X REQ PHY/QHP [id number] [id number] Diagnos is: ICD-10- CM Z04.9 Encount er for examina tion and observa tion for unsp reason Juma TALBOT 10/31 [facility] Outpatient Encounter [id number] 10/31 [facility] OFFICE O/P EST LOW 20 MIN [id number] [id number] Diagnos is: ICD-10- CM S41.111 A Lacerat ion w/o foreign body of right upper arm, init encntr JUAN ERNST 10/31 [facility] OFFICE O/P EST LOW 20 MIN [id number] Diagnos is: ICD-10- CM R60.0 Localiz ed edema JUAN ERNST 11/01 [facility] NURSING ASSESSMENT /EVALUATN [id number] [id number] Diagnos is: ICD-10- CM R22.30 Localiz ed swellin g, mass and lump, unspeci fied upper limb Gabino KENDALL 11/01 [facility] Out[facility] Encounter [id number] 11/05 [facility] Out[facility] Encounter [id number] 11/21 [facility] OFFICE O/P EST LOW 20 MIN [id number] Diagnos is: ICD-10- CM M81.0 Age-rel ated osteopo rosis w/o current patholo gical fractgustavo e JAYLEN CUELLO 11/26 [facility] Out[facility] Encounter [id number] 1.01/21 [facility] OFFICE O/P EST LOW 20 MIN [id number] 1. Diagnos is: ICD-10- CM M06.9 Rheumat oid arthrit is, unspeci fied TOÑO CAI 02/11 [facility] Out[facility] Encounter [id number] [facility] Out[facility] Encounter [id number] 1.02/12 [facility] Out[facility] Encounter [id number]/26 [facility] Outpatient Encounter [id number] 02/27 [facility] OFFICE O/P EST MOD 30 MIN [id number] Diagnos is: ICD-10- CM 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, recurre nt, unspeci fied LILI HARPERHYU N 02/27 [facility] FEE [id number] Diagnos is: ICD-10- CM 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, recurre nt, unspeci fied LILI HARPERHYU N 02/27 [facility] Outpatient Encounter [id number] 03/14 [facility] CPTR OPHTH DX IMG POST SEGMT [id number] [id number] Diagnos is: ICD-10- CM 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, right eye, interme d dry stage ANALI VALLADARES 03/25 [facility] COMPRE OPH EXAM EST PT 1/ [id number] [id number] Diagnos is: ICD-10- CM 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, right eye, interme d dry stage ANALI VALLADARES 03/25 [facility] FIT SPECTACLES MULTIFOCAL [id number] Diagnos is: ICD-10- CM Z46.0 Encount er for fit/adj st of spectac les and contact lenses ANALI VALLADARES 03/25 [facility] Out[facility] Encounter [id number] [facility] OFFICE O/P EST LOW 20 MIN [id number] Diagnos is: ICD-10- CM M75.51 Bursiti s of right shoulde TOÑO Goodson 04/02 [facility] OFFICE O/P EST MOD 30 MIN [id number] 1. Diagnos is: ICD-10- CM L57.0 Actinic keratos is VEGA PENA 04/04 [facility] PROSTHETIC TRAING 1ST ENC [id number] Diagnos is: ICD-10- CM M54.9 Dorsalg ia, unspeci JAYLON Suresh 04/08 [facility] Out[facility] Encounter [id number]/12 [facility] THERAPEUTI C EXERCISES [id number] 1. Diagnos is: ICD-10- CM M54.9 Dorsalg ia, unspeci Juma Orellana 04/16 [facility] Out[facility] Encounter [id number] 04/28 [facility] THERAPEUTI C EXERCISES [id number] 1. 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 CUELLO,ALI CE 05/29 [facility] Outpatient Encounter [id number] 1.05/29 [facility] Outpatient Encounter [id number] 1.06/03 [facility] MOD 30 MIN [id number] Diagnos is: ICD-10- CM 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, recurre nt, unspeci fied MEREDITH,GIHYU N 06/05 [place] [facility] FEE [id number] [id number] Diagnos is: ICD-10- CM 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, recurre nt, unspeci fied MEREDITHGIHYU N 06/05 [facility] Outpatient Encounter [id number] [facility] MTMS BY PHARM ADDL 15 MIN [id number] Diagnos is: ICD-10- CM E11.8 Type 2 diabete s mellitu s with unspeci fied complic ations ENE MELENDEZ A 06/17 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 Outpatient Encounter [id number] [facility] Out[facility] Encounter [id number] 06/26 [facility] Out[facility] Encounter [id number] 07/02 [facility] Outpatient Encounter [id number] 07/04 [facility] OFF/OP CNSLTJ NEW/EST MOD 40 [id number] Diagnos is: ICD-10- CM R10.0 Acute abdomen GOJORDI S 07/05 [facility] Out[facility] Encounter [id number] 07/10 [facility] Outpatient Encounter [id number] 07/10 [facility] Outpatient Encounter [id number] 07/14 [facility] SYNCH AUDIO-ONLY EST SF 10 [id number] Diagnos is: ICD-10- CM E11.8 Type 2 diabete s mellitu s with unspeci fied complic ations JAYLEN UCELLO 07/15 [facility] NQHP OL DIG ASSMT&MGMT 5-10 [id number] Diagnos is: ICD-10- CM Z96.41 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 e 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) ENE MELENDEZ 07/16 [facility] NQHP OL DIG ASSMT&MGMT 5-10 [id number] [id number] Diagnos is: ICD-10- CM Z96.41 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 Social History Type Response Date Comment Source Tobacco smoking status [facility] VA-TOBACCO USE FORMER CIGARETTES 06/17/2024 [facility] History of tobacco use VA-TOBACCO NEVER USED OTHER TYPE 06/17/2024 [facility] History of tobacco use VA-TOBACCO FORMER USER 06/05/2023 [facility] History of tobacco use VA-TOBACCO FORMER USER 06/06/2022 [facility] History of tobacco use VA-TOBACCO FORMER USER 06/30/2021 [facility] History [facility] tobacco use VA-TOBACCO NEVER USED 05/22/2020 [facility] History of tobacco use VA-TOBACCO QUIT 15 YRS OR MORE 05/08/2018 [facility] History of tobacco use QUIT TOBACCO USE > 7 YEARS AGO 11/10/2017 [facility] History of tobacco use QUIT TOBACCO USE > 7 YEARS AGO 10/21/2016 [facility] History of tobacco use QUIT TOBACCO USE > 7 YEARS AGO 09/18/2015 stopped 50 years ago [facility] History of tobacco use HISTORY OF SMOKING 05/19/2005 [facility] [facility] History of tobacco use HISTORY OF SMOKING 05/31/2004 [facility] [place] [facility] History of tobacco use HISTORY OF SMOKING 06/04/2003 [facility] [place] [facility] History [facility] tobacco use HISTORY OF SMOKING [facility]03[facility] Plan of Care List of future care activities from [facility] of [facility] facilities. Additional future care activities may be listed in the Assessment and Plan section. Date/Time Care Activity Care Activity Detail Facili ty 08/01/2024 AMBULATORY - MEDICINE AMBULATORY - MEDICI [facility] [facility] 08/06/2024 AMBULATORY - MEDICINE AMBULATORY - MEDICI NE [facility] [place] [facility] 08/22/2024 AMBULATORY - MEDICINE AMBULATORY - MEDICI NE [facility] [place] [facility] 09/27/2024 AMBULATORY - PSYCHIATRY AMBULATORY - PSYC [facility] [place] [facility] 10/02/2024 AMBULATORY - PSYCHIATRY AMBULATORY - PSYC [facility] 10/03/2024 AMBULATORY - MEDICINE AMBULATORY - MEDICI NE [facility] [place] [facility] 11/27/2024 AMBULATORY - MEDICINE AMBULATORY - MEDICI NE [facility] [place] [facility] 06/17/2024 Laboratory - Winter Sports Manager ry Order FERRITIN BLOOD (SST-SERUM) SP [facility] 06/17/2024 Laboratory - Winter Sports Manager ry Order IRON and TIBC PANEL BLOOD (SST-SERUM) SP [facility] 06/17/2024 Consult Order OTOLARYNGOLOGY/E NT ONE Cons Transfer Station Operator's Choice [facility] 07/05/2024 Consult Order COMMUNITY CARE-RHEUMATOLOGY Cons Transfer Station Operator's Choice [facility] 07/24/2024 Laboratory - Winter Sports Manager ry Order FERRITIN BLOOD (SST-SERUM) SP [facility] 07/24/2024 Laboratory - Winter Sports Manager ry Order IRON and TIBC PANEL BLOOD (SST-SERUM) SP [facility] 07/24/2024 Laboratory - Winter Sports Manager ry Order BASIC METABOLIC PANEL (fasting) BLOOD (SST-SERUM) [facility] 07/24/2024 Laboratory - Winter Sports Manager ry Order CBC AND DIFF (AUTO) BLOOD (LAV-BLOOD) [facility] 07/24/2024 Laboratory - Winter Sports Manager ry Order LIVER FUNCTION BLOOD (SST-SERUM) [facility] 07/29/2024 Consult Order PSYCHIATRIC MEDI CATION BHIP/NHM OUTPT Cons Transfer Station Operator's Choice [facility] 08/22/2024 Laboratory - Winter Sports Manager ry Order OSMOLALITY (SERUM) BLOOD (SST-SERUM) [facility] 08/22/2024 Laboratory - Winter Sports Manager ry Order HEMOGLOBIN A1C PANEL BLOOD (LAV-BLOOD) SP [facility] 08/22/2024 Laboratory - Winter Sports Manager ry Order BASIC METABOLIC PANEL (non-fasting) BLOOD (SST-SERUM) [facility] 08/22/2024 Laboratory - Winter Sports Manager ry Order VITAMIN D (25-OH) BLOOD (SST-SERUM) [facility] 08/22/2024 Laboratory - Winter Sports Manager ry Order CALCIUM BLOOD (SST-SERUM) [facility] 08/22/2024 Laboratory - Winter Sports Manager ry Order MICROALBUMIN CREATININE RATIO PANEL URINE (RANDOM) [facility] Advance Directives List of completed, amended, or rescinded Advance Directives on record at [facility] facilities. An actual copy of the Directive is not included. Date Advance Directive Provider Source 06/02/2023 ADVANCE DIRECTIVE JENNIFER QUIROS [facility]
--- OUTSIDE RECORDS SUMMARY | 2024-07-31 14:48 | XMS_ITS ---
Author Name [facility] [place] [facility] [place] Organization [facility] [place] [facility] [place] Address [address] [place] [id number] Care Team Providers Care Manager Loss Prevention Name Role Phone TOÑO CAI Primary Care [...] O MEDEX BRONZ E Mar 19, 2004 [id number] HOLLIE SHEPHERD [place]IENT [place] SUPPLEMEN MASTER MEDEX BRONZ E Mar 19, 2004 [id number] [phone] HOLLIE SHEPHER[place] SUPPLEMEN MASTER MEDEX BRONZ E Mar 19, 2004 [id number] [phone] HOLLIE SHEPHERD PATIENT BCBS [facility] MEDICARE SUPPLEMEN MASTER PSUED O MEDEX BRONZ E Mar 19, 2004 [id number] [phone] HOLLIE SHEPHERD PATIENT MEDICARE (WNR) MEDICARE (M) PART B Mar 19, 2004 PART B [id number] HOLLIE SHEPHERD PATIENT MEDICARE (WNR) MEDICARE (M) PART B Mar 19, 2004 PART B [id number] HOLLIE SHEPHERD ALD PATIENT MEDICARE (WNR) MEDICARE (M) PART B Mar 19, 2004 PART B [id number] [phone] HOLLIE SHEPHERD ALD PATIENT MEDICARE (WNR) MEDICARE (M) PART A Feb 17, 2003 PART A [id number] HOLLIE SHEPHERD ALD PATIENT MEDICARE (WNR) MEDICARE (M) PART A Feb 17, 2003 PART A [id number] [phone] HOLLIE SHEPHERD ALD PATIENT MEDICARE (WNR) MEDICARE (M) PART A Feb 17, 2003 PART A [id number] [phone] HOLLIE SHEPHERD PATIENT MEDICARE (WNR) MEDICARE (M) PART A Feb 17, 2003 PART A [id number] HOLLIE SHEPHERD PATIENT MEDICARE (WNR) MEDICARE (M) PART B Feb 17, 2003 PART B [id number] HLOLIE SHEPHERD PATIENT MEDICARE (WNR) MEDICARE (M) PART A Feb 17, 2003 PART A [id number] HOLLIE SHEPHERD PATIENT MEDICARE (WNR) MEDICARE (M) PART B Feb 17, 2003 PART B [id number] HOLLIE SHEPHERD PATIENT Selected Encounter This section includes the information on record at CT for the Encounter. Date/Time Encounter Type Encounter Description Reason Provider Source Jun 05, 2024 12:00 PM [facility] - IND ICD-10-CM F33.9 Major depressive disorder, recurrent, unspecified MEREDITH,GIRENZOUN IHE Encounter Template Text not used by CT Assessments - Encounter Diagnoses This section includes the primary and secondary diagnoses documented for the Encounter. Date/Time Primary/Secondary Diagnosis Diagnosis Name Provider Source Jun 30, 2024 09:20 AM PRIMARY Major depressive disorder, recurrent, unspecified MEREDITH,GIHYUN [facility] Plan of Treatment: Future Appointments (+ 6 months) and Future Tests (+/- 45 days) The Plan of Treatment section includes future care activities for the patient [facility]. This section includes future appointments [...] - MEDICINE [facility] [place] [facility] Jun 17, 2024 10:31 AM AMBULATORY - MEDICINE [facility] [place] [facility] Jun 17, 2024 11:45 AM AMBULATORY - NONE [facility] [place] [facility] Jun 21, 2024 11:00 AM AMBULATORY - MEDICINE [facility] [place] [facility] Jul 05, 2024 10:00 AM AMBULATORY - MEDICINE [facility] [place] [facility] Jul 10, 2024 01:30 PM AMBULATORY - MEDICINE [facility] [place] [facility] Aug 01, 2024 11:00 AM AMBULATORY - MEDICINE [facility] [place] [facility] Aug 06, 2024 10:00 AM AMBULATORY - MEDICINE [facility] [place] [facility] Aug 22, 2024 11:00 AM AMBULATORY - MEDICINE [facility] [place] [facility] Sep 27, 2024 11:00 AM AMBULATORY - PSYCHIATRY [facility] [place] [facility] Oct 02, 2024 12:00 PM AMBULATORY - [place]CHIATRY [place] [facility] Oct 02, 2024 12:00 PM AMBULATORY - PSYCHIATRY [facility] [place] [facility] Oct 03, 2024 02:00 PM AMBULATORY - MEDICINE [facility] [place] [facility] Nov 27, 2024 11:00 AM AMBULATORY - MEDICINE [facility] [place] [facility] Active, Pending, and Scheduled Orders This section includes a listing of several types of active, pending, and scheduled orders, including clinic medications orders, diagnostic test orders, procedure orders and consult orders; where the start date of the order is 45 days before the date of the Encounter or 45 days after the date of theEncounter. The data comes from all [place] treatment [facility]. Test Date/Time Test Type Test Details Facility Name Jun 10, 2024 11:25 AM Consult Order COMMUNITY CARE-UROLOGY Cons Work Environment Safety Inspector's Choice [facility] [place] [facility] Jun 17, 2024 12:00 AM Laboratory - Chemi stry Order FERRITIN BLOOD (SST-SERUM) SP [facility] Jun 17, 2024 12:00 AM Laboratory - Chemi stry Order IRON & TIBC PANEL BLOOD (SST-SERUM) SP [facility] [place] [facility] Jun 17, 2024 11:31 AM Consult Order OTOLARYNGO LOGY/ENT ONE Cons Work Environment Safety Inspector's Choice [facility] [place] [facility] Jul 05, 2024 09:52 AM Consult Order COMMUNITY CARE-RHEUMATOLOGY Cons Work Environment Safety Inspector's Choice [facility] [place] [facility] Lab Results: +/- 30 days [...] Range Comment Jun 17, 2024 12:[address] [facility] [place] [facility] FERRITIN Specimen Type: SERUM No comment entered. Ordering Provider: JUAN LUIS CAI Report Released Date/Time: Jun 17, 2024 11:07 AM Reporting Lab: [facility] [place] [facility] [address] [facility] [address] Performing Lab: [facility] [place] [facility] [address] [facility] [address] FERRITIN 37 ng/mL 20-300 Jun 17, 2024 12:[address] [facility] [place] [facility] IRON & TIBC PANEL Specimen Type: SERUM No comment entered. Ordering Provider: JUAN LUIS CAI F Report Released Date/Time: Jun 17, 2024 11:07 AM Reporting Lab: [facility] [place] [facility] [address] [facility] [address] Performing Lab: [facility] [place] [address] [address] TIBC 374 ug/dL 204-475 IRON 172 ug/dL H 40-160 Transferrin Saturation 46.0 20.0-50.0 Transferrin (TRF) 283 mg/dL 200-360 Jun 17, 2024 12:15 PM [facility] CBC AND DIFF (AUTO) Specimen Type: BLOOD No comment entered. Ordering Provider: JUAN LUIS CAI Report Released Date/Time: Jun 17, 2024 11:07 AM Reporting Lab: [facility] [address] [facility] [address] Performing Lab: [facility] [address] [facility] [address] WBC 4.91 10*3/uL 4.50-11.00 RBC 4.38 10*6/uL [...] 0.0 0.0-0.0 NRBC, ABS 0.00 10*3/uL 0.00-0.00 Jun 04, 2024 10:27 AM [facility] HEMOGLOBIN A1C PANEL Specimen Type: BLOOD [...] May 29, 2024 06:36 PM Reporting Lab: [address] [address] Performing Lab: [address] [address] HEMOGLOBIN A1C 6.5 H 4.0-5.6 Jun 04, 2024 10:27 AM [facility] MICROALBUMIN CREATININE RATIO PANEL Specimen Type: URINE No comment entered. Ordering Provider: JUAN LUIS CAI F Report Released Date/Time: May 29, 2024 06:36 PM Reporting Lab: [address] [address] Performing Lab: [address] [address] MICROALBUMIN/C REATININE RATIO 36.0 mg/g H 0-29.9 MICROALBUMIN,Q UANTITATIVE 2.8 mg/dL RR UNAVAIL CREATININE URINE 77.84 mg/dL Jun 04, 2024 10:27 AM [facility] BASIC METABOLIC PANEL (non-fasting) Specimen Type: SERUM No comment entered. Ordering Provider: JUAN LUIS CAI F Report Released Date/Time: May 29, 2024 06:36 PM Reporting Lab: [address] [address] Performing Lab: [address] [address] UREA NITROGEN 19 mg/dL 7-25 GLUCOSE 187 mg/dL H 65-100 SODIUM 140 mmol/L 135-145 POTASSIUM 3.8 mmol/L 3.5-5.0 CHLORIDE 103 mmol/L 100-110 CO2 25 meq/L 20-30 CREATININE, Serum 0.97 mg/dL 0.50-1.40 eGFR(CKD-EPI 2020) 76 mL/min >60 Jun 04, 2024 10:27 AM [facility] TSH Specimen Type: SERUM No comment entered. Ordering Provider: JUAN LUIS CAI F Report Released Date/Time: May 29, 2024 06:36 PM Reporting Lab: [facility] [address] [facility] [address] Performing Lab: [address] [address] TSH 1.78 u[IU]/mL 0.35-5.00 Jun 04, 2024 10:27 AM [facility] LIVER FUNCTION Specimen Type: SERUM No comment entered. Ordering Provider: JUAN LUIS CAI F Report Released Date/Time: May 29, 2024 06:36 PM Reporting Lab: [facility] [address] [facility] [address] Performing Lab: [address] [address] PROTEIN,TOTAL 5.5 g/dL L 6.0-8.3 ALBUMIN 3.7 g/dL 3.5-5.0 ALKALINE PHOSPHATASE 78 U/L 40-150 AST 20 U/L 5-34 ALT 19 U/L BILIRUBIN, TOTAL 1.3 mg/dL H 0.2-1.2 BILIRUBIN, DIRECT 0.5 mg/dL 0-0.5 Jun 04, 2024 10:27 AM [facility] LIPID PANEL, NON FASTING Specimen Type: SERUM No comment entered. Ordering Provider: JUAN LUIS CAI F Report Released Date/Time: May 29, 2024 06:36 PM Reporting Lab: [facility] [address] [facility] [address] Performing Lab: [address] [address] CHOLESTEROL 151 mg/dL TRIGLYCERIDE 146 mg/dL 0-150 LDL calculated 73 mg/dL 0-129 CHOL/HDL 3.1 HDL CHOLESTEROL 49 mg/dL 40-60 May 08, 2024 11:24 AM [facility] TESTOSTERONE, TOTAL (WHV) Specimen Type: SERUM No comment entered. Ordering Provider: JUAN LUIS CAI F Report Released Date/Time: Aug 11, 2023 11:52 AM Reporting Lab: [facility] [address] [facility] [address] Performing Lab: [facility]ITALUSE[address] [address] TESTOSTERONE, TOTAL (V) 44.33 ng/dL L 220.00-892 .00 May 08, 2024 11:24 AM [facility] CBC Specimen Type: BLOOD No comment entered. Ordering Provider: JUAN LUIS CAI F Report Released Date/Time: Aug 11, 2023 11:52 AM Reporting Lab: [facility]ITALUSE[address] [address] Performing Lab: [facility]ITALUSE[address] [address] WBC 4.08 10*3/uL L 4.50-11.00 RBC 4.53 10*6/uL 4.23-5.66 HGB 13.1 g/dL 12.8-17 HCT 39.9 39.2-50.4 MCV 88.1 fL 82-99 MCHC 32.8 g/dL 30.8-35.1 PLT 130 10*3/uL L 140-360 RDW-CV 14.5 12.0-16.0 MCH 28.9 pg 26.2-32.6 May 08, 2024 11:24 AM [facility] LIPID PANEL FASTING Specimen Type: SERUM No comment entered. Ordering Provider: JUAN LUIS CAI F Report Released Date/Time: Aug 11, 2023 11:52 AM Reporting Lab: [address] [address] Performing Lab: [facility] [address] [address] CHOLESTEROL 142 mg/dL TRIGLYCERIDE 179 mg/dL H 0-150 LDL calculated 64 mg/dL 0-129 CHOL/HDL 3.4 HDL CHOLESTEROL 42 mg/dL 40-60 May 08, 2024 11:24 AM [facility] LIVER FUNCTION Specimen Type: SERUM No comment entered. Ordering Provider: JUAN LUIS CAI F Report Released Date/Time: Aug 11, 2023 11:52 AM Reporting Lab: [address] [address] Performing Lab: [address] [address] PROTEIN,TOTAL 5.5 g/dL L 6.0-8.3 ALBUMIN 3.6 g/dL 3.5-5.0 ALKALINE PHOSPHATASE 71 U/L 40-150 AST 20 U/L 5-34 ALT 24 U/L BILIRUBIN, TOTAL 1.1 mg/dL 0.2-1.2 May 08, 2024 11:24 AM [facility] BASIC METABOLIC PANEL (fasting) Specimen Type: SERUM No comment entered. Ordering Provider: JUAN LUIS CAI F Report Released Date/Time: Aug 11, 2023 11:52 AM Reporting Lab: [address] [address] Performing Lab: [address] [address] UREA NITROGEN 19 mg/dL 7-25 GLUCOSE 216 mg/dL H 65-100 SODIUM 142 mmol/L 135-145 POTASSIUM 3.5 mmol/L 3.5-5.0 CHLORIDE 107 mmol/L 100-110 CO2 25 meq/L 20-30 CREATININE, Serum 0.84 mg/dL 0.50-1.40 eGFR(CKD-EPI 2020) 85 mL/min >60 May 08, 2024 11:24 AM [facility] CBC AND DIFF (AUTO) Specimen Type: BLOOD No comment entered. Ordering Provider: JUAN LUIS CAI F Report Released Date/Time: Aug 11, 2023 11:52 AM Reporting Lab: [facility] [address] [facility] [address] Performing Lab: [facility] [address] [facility] [address] WBC 4.08 10*3/uL L 4.50-11.00 RBC 4.53 [...] 10*3/uL 0.00-0.00 May 08, 2024 11:23 AM [facility] OSMOLALITY (SERUM) Specimen Type: SERUM No comment entered. Ordering Provider: ALLIE CUELLO Report Released Date/Time: Nov 27, 2023 07:39 PM Reporting Lab: [facility] [address] [facility] [address] Performing Lab: [facility] [address] [facility] [address] OSMOLALITY (SERUM) 299 280-300 May 08, 2024 11:23 AM [facility] CALCIUM Specimen Type: SERUM Comment: *GLUCOSE Not Performed: May 08, 2024@11:36 by [id number] *LABOURERS Reason: Duplicate *UREA NITROGEN Not Performed: May 08, 2024@11:36 by [id number] *LABOURERS Reason: Duplicate *CREATININE (eGFR 2020) Not Performed: May 08, 2024@11:36 by [id number] *LABOURERS Reason: Duplicate *SODIUM Not Performed: May 08, 2024@11:36 by [id number] *LABOURERS Reason: Duplicate *CHLORIDE Not Performed: May 08, 2024@11:36 by [id number] *LABOURERS Reason: Duplicate *CO2 Not Performed: May 08, 2024@11:36 by [id number] *LABOURERS Reason: Duplicate *POTASSIUM Not Performed: May 08, 2024@11:36 by [id number] *LABOURERS Reason: Duplicate Ordering Provider: ALLIE CUELLO Report Released Date/Time: Nov 27, 2023 07:39 PM Reporting Lab: [facility]osphereUSECABRINI MEDICAL [facility] [address] [facility] [address] Performing Lab: [facility] [address] [facility] [address] CALCIUM 8.5 mg/dL 8.5-10.2 May 08, 2024 11:23 AM [facility] VITAMIN D (25-OH) Specimen Type: SERUM No comment entered. Ordering Provider: ALLIE CUELLO Report Released Date/Time: Nov 27, 2023 07:39 PM Reporting Lab: [facility]apayUSECABRINI MEDICAL [facility] [address] [facility] [address] Performing Lab: [facility] [address] [facility] [address] VITAMIN D (25-OH) 46 ng/mL 20-50 Social [...] 05, 2023 11:00 AM [facility]CO [facility] [place] [facility] Tobacco Use History This section includes a history of the smoking, or tobacco-related health factors, that were collected on or before the date of the Encounter. The data comes from the CT facility where the Encounter took place. Date/Time Smoking Status/Tobac co Use Comment Facility Jun 05, 2023 11:00 AM VA-TOBACCO QUIT 15 YRS OR MORE [facility] [place] [facility] Jun 06, 2022 01:00 PM VA-TOBACCO FORMER USER [facility] [place] [facility] Jun 06, 2022 01:00 PM VA-TOBACCO QUIT 15 YRS OR MORE [facility] [place] [facility] Jun 30, 2021 02:37 PM VA-TOBACCO FORMER USER [facility] [place] [facility] Jun 30, 2021 02:37 PM VA-TOBACCO QUIT 5 TO < [address] [facility] [place] [facility] May 22, 2020 03:30 PM VA-TOBACCO NEVER USED [facility] [place] [facility] May 08, 2018 02:03 PM VA-TOBACCO FORMER USER [facility] [place] [facility] May 08, 2018 02:03 PM VA-TOBACCO QUIT 15 YRS OR MORE [facility] [place] [facility] November 10, 2017 02:33 PM QUIT TOBACCO USE > 7 YEARS AGO [facility] [place] [facility] October 21, 2016 01:55 PM QUIT TOBACCO USE > 7 YEARS AGO [facility] [place] [facility] Sep 18, 2015 11:24 AM QUIT TOBACCO USE > 7 YEARS AGO stopped 50 years ago [facility] [place] [facility] May 19, 2005 08:[address] [facility] [place] [facility] May 31, 2004 01:02 PM HISTORY OF SMOKING [facility] [place] [facility] Jun 04, 2003 07:57 AM HISTORY OF SMOKING [facility] [place] [facility] Jun 03, 2002 01:11 PM HISTORY OF SMOKING [facility] [place] [facility] Jun 03, 2002 01:11 PM QUIT TOBACCO USE > [address] [facility] [place] [facility] Advance Directives: All historical and [...] Jun 02, 2023 ADVANCE DIRECTIVE JENNIFER QUIROS [facility] Radiology Reports: +/- 30 days of [...] AND PEL VIS WITH CONTRAST: BEBO SHEPHERD Nisa [id number] [id number] M Exm Date: JUN 17, 2024@11:32 Req Phys: TOÑO CAI Loc: CWM/NO/PACT 3 (Req'g Loc) Img Loc: NHM/CT Service: [place] [address] (Case [id number] COMPLETE) CT ABDOMEN AND PELVIS WITH CONTRA(CT Detailed) CPT:11144 Contrast Media : Non-ionic Iodinated Reason for [...] 17, 2024 Date Verified: JUN 17, 2024 Automobile Contract Clerk E-Sig:/ES/EVGENY IGNACIO Report: Exam: CT of abdomen [...] Primary Interpreting Staff: EVGENY IGNACIO Staff Physician (Automobile Contract Clerk) /EVGENY SINGH [facility] [place] [facility] Encounter Notes: All associated encounter notes This section contains the clinical notes associated to the Encounter. Date/Time Encounter Note(s) Provider Source Jun 05, 2024 12:28 PM PSYCHIATRY NOTE: LOCAL TITLE: PSYCHIATRY NOTE STANDARD TITLE: PSYCHIATRY NOTE DATE OF NOTE: JUN 05, 2024@12:28 ENTRY DATE: JUN 05, 2024@12:28:22 AUTHOR: RADHA HARPER EXP COSIGNER: URGENCY: STATUS: COMPLETED PSYCHIATRY NOTE Has ADDENDA Length of time: 25-30 minutes Clinical services provided by Radha Harper MD, staff psychiatrist. Clinical services are being provided via Telemental Health from the [facility][note 3] System ([place]) to the [facility] through the [facility] Clinical Resource Hub. ID & Diagnoses: 84-year-old male with major depressive disorder (0% SC). , father of 4 adult children. Lives alone with a cat and a lot of fish in a large fish tank. Served in [employer] for 6 yrs. 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 History of Present Illness: Even after citalopram was reduced from 10 to 5 mg/day for depression, he has been doing well. He denies clinical depression (0/10, 10 being worst). Thus, he has agreed to discontinue citalopram at this time. Place Change Roof Bolter has no concerns on this. Denies active stressors or concerns. He has recovered from recent rib crack (no surgery needed) after he fell down. 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 He sees his medical doctors regularly for medical issues (including back pain and retina issue). He has several friends. He has a good relationship with his girlfriend he recently met at a anabaptist, who is about 15 yrs younger than him. She is now in [place]. He still visit his '[place] almost daily. He talks and sees his children, grandchildren, and great-grandchildren very often (usually once a week). He enjoys making wood toys, watching movies, doing yardwork and lawn maintenance, and meeting with anabaptist people. Denies alcohol, drug, or gambling problems. No acute psychiatric issues noted. MENTAL STATUS EXAM: Appearance/Behavior: pleasant Speech: normal rate/rhythm Mood: good Affect: mood congruent Perceptual disturbance: no visual/auditory hallucinations Thought process: goal directed Thought content: no delusions Suicidal/Violent thoughts: none Cognition/Memory: grossly intact Insight/Judgment: good Risk assessment: [place] is determined to have LOW ACUTE RISK [...] ] no [ x ] yes Therapeutic [place] [ ] no [ x ] yes [...] 10/11/2023 ALLIE CUELLO Aortic Valve Disorder (SCT 4416253) 10/09/2023 TOÑO CAI Cerebrovascular disease I67.9 04/26/2023 [...] DE LA CRUZ MD Hypertension (SNOMED CT 10901429) I 04/26/2023 ALLIE CUELLO Spinal Stenosis * (ICD-9-CM 724.00) 02/05/2010 VESTA DE LA CRUZ MD Hyperlipidemia (SNOMED CT 41278608) 04/26/2023 ALLIE CUELLO Osteoarthritis * (ICD-9-CM 715.90) 07/02/2008 PAUL ACOSTA Lower Back Pain * (ICD-9-CM 724.2) 07/02/2008 PAUL ACOSTA Vertigo 780.4 11/28/2007 PAUL ACOSTA Diabetes mellitus type 2 (SNOMED CT 09/17/2022 ALLIE CUELLO Gastroesophageal Reflux Disorder 53 11/28/2007 PAUL ACOSTA ASSESSMENT: -Major depressive disorder: stable PLAN: -Discontinue citalopram (as above) -Monitor his mental health without antidepressant -Follow-up: Return to clinic with lead technical writer on 10/02 or earlier as needed /thomas/ Radha Harper MD PSYCHIATRIST, PSYCHIATRY Signed: 06/05/2024 13:45 07/30/2024 ADDENDUM STATUS: COMPLETED Since lead technical writer is leaving the telehealth team, lead technical writer called this patient and left a message explaining that the patient is being transferred to Dr. Collins. Plan: Return to clinic with Dr. Collins in 1-2 months /benny Harper MD PSYCHIATRIST, PSYCHIATRY Signed: 07/30/2024 15:[address] [facility]
== END 2024-07-31 14:59 | disposition home or self-care (01) ==
PROVIDERS: PCP Internal Medicine; Visit Provider Student in an Organized Health Care Education/Training Program
DX: M06.09 Rheumatoid arthritis without rheumatoid factor, multiple sites (principal); M70.51 Other bursitis of knee, right knee; Z79.899 Other long term (current) drug therapy; Z51.81 Encounter for therapeutic drug level monitoring; Z79.69 Long term (current) use of other immunomodulators and immunosuppressants
CPT/HCPCS: 20610; 99214; G2211

== ENCOUNTER → 2024-07-31 13:23 | Outpatient (BNVA) | payer MEDICARE, SELFPAY | PROVIDERS: PCP Internal Medicine; Visit Provider Student in an Organized Health Care Education/Training Program | DX: M06.09 Rheumatoid arthritis without rheumatoid factor, multiple sites (principal); M70.51 Other bursitis of knee, right knee; Z79.899 Other long term (current) drug therapy; Z51.81 Encounter for therapeutic drug level monitoring; Z79.69 Long term (current) use of other immunomodulators and immunosuppressants | CPT/HCPCS: 20610; 99212; J3300 ==

== ENCOUNTER 2024-10-01 09:54 | Outpatient (REF) | payer OTHER, SELFPAY ==
--- NOTE | ~2024-10-01 | CT_ITS ---
EXAMINATION: CT CHEST WITHOUT CONTRAST CLINICAL INFORMATION: Crackles COMPARISON: None available. TECHNIQUE: Multidetector volumetric CT imaging of the chest was done. Axial MIP volume rendering provided. Sagittal and coronal reformatted images were obtained. This CT examination was performed using dose optimization techniques as appropriate, variously including the following: *Automated exposure control *Adjustment of mA and/or kV according to patient size (this includes techniques or standardized protocols for targeted exams where dose is matched to indication/reason for exam; i.e. extremities or head) *Use of iterative reconstruction technique DLP: 116 mGy centimeter. FINDINGS: ANALYTICAL STRATEGIST: Metallic stent overlapping the heart silhouette. Lungs are not hyperinflated. Metallic hardware in the lumbar spine not included in the liipd-bi-ppby. LUNGS: There is minimal honeycombing in the periphery of the lower lung lobes and to a lesser extent middle lingula upper lobes. Mild saccular bronchiectasis in the lung bases. No gross consolidation. No gross pulmonary nodule. Nodularity in the endobronchial airway of the distal trachea, right and left main bronchus. MEDIASTINUM: Nonspecific less than 1 cm lymph nodes with a fatty hilum. There is stent in the aortic valve/ascending aorta. No aneurysm in the thoracic aorta. Calcified plaques and mixed plaques throughout the thoracic aorta wall extending branches. Calcified plaques in the coronary arteries. Small trace pericardial effusion. Calcified plaque in the mitral valve. CORONARY ARTERY CALCIFICATION: Calcified plaques. PLEURA: No pleural effusion. No pneumothorax. AXILLA: No lymphadenopathy. UPPER ABDOMEN: Status post cholecystectomy. Abundant food contents in the stomach. Fatty appearance/substitution of the pancreas OSSEOUS STRUCTURES: Inferior endplate sclerosis and compression deformity likely old representing 70% volume loss at T7 and T9 vertebra. Multilevel marginal osteophyte formation and syndesmophyte formation throughout the axial skeleton. Metallic anchor in the left acromion/glenoid left scapula. Old healed rib fractures in the anterior aspect of the ribs left hemithorax. CT/CT chest wo IV con IMPRESSION: Endobronchial nodularity. Recommend endoscopy. Interstitial lung disease. 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 Coronary artery disease and atherosclerosis disease. Fleischner guidelines were followed. Electronically signed by: Kenji Trent MD 10/03/2024 03:06 PM EDT
--- OUTSIDE RECORDS SUMMARY | 2024-10-01 11:25 | XMS_ITS | Encounter Summary ---
Author Name [facility] Organization [facility] [place] Address [address] [place] [id number] Care Team Providers Care Head Of Music Name Role Phone TOÑO CAI Primary Care [...] MD MEDICARE SUPPLEMEN MASTER PSUED O MEDEX BRON E Mar 19, 2004 [id number] [phone] HOLLIE SHEPHERD PATIENT [place] MED[place] SUPPLEMEN MASTER MEDEX BRONZ E Mar 19, 2004 [id number] HOLLIE SHEPHERD [place] SUPPLEMEN MASTER MEDEX BRONZ E Mar 19, 2004 [id number] [phone] HOLLIE SHEPHERD PATIENT BCBS [facility] MEDICARE SUPPLEMEN MASTER PSUED O MEDEX BRONZ E Mar 19, 2004 [id number] [phone] HOLLIE SHEPHERD PATIENT MEDICARE (WNR) MEDICARE (M) PART B Mar 19, 2004 PART B [id number] [phone] HOLLIE SHEPHERD PATIENT MEDICARE (WNR) MEDICARE (M) PART B Mar 19, 2004 PART B [id number] [phone] HOLLIE SHEPHERD PATIENT MEDICARE (WNR) MEDICARE (M) PART B Mar 19, 2004 PART B [id number] HOLLIE SHEPHERD ALD PATIENT MEDICARE (WNR) MEDICARE (M) PART A Feb 17, 2003 PART A [id number] [phone] HOLLIE SHEPHERD ALD PATIENT MEDICARE (WNR) MEDICARE (M) PART A Feb 17, 2003 PART A [id number] HOLLIE SHEPHERD PATIENT MEDICARE (WNR) MEDICARE (M) PART A Feb 17, 2003 PART A [id number] [phone] [id number] HOLLIE SHEPHERD PATIENT MEDICARE (WNR) MEDICARE (M) PART A Feb 17, 2003 PART A [id number] HOLLIE SHEPHERD PATIENT MEDICARE (WNR) MEDICARE (M) PART B Feb 17, 2003 PART B [id number] HOLLIE SHEPHERD PATIENT MEDICARE (WNR) MEDICARE (M) PART A Feb 17, 2003 PART A [id number] HOLLIE SHEPHERD PATIENT MEDICARE (WNR) MEDICARE (M) PART B Feb 17, 2003 PART B [id number] HOLLIE SHEPHERD PATIENT Selected Encounter This section includes the information on record at [place] for the Encounter. Date/Time Encounter Type Encounter Description Reason Pro vider Source Feb 27, 2024 06:53 AM Outpatient Encounter ADMIN PAT ACTIVTIES (MASNONCT) IHE Encounter Template Text not used by [place] Plan of Treatment: Future Appointments (+ 6 [...] 01:00 PM AMBULATORY - [facility]RY [facility] Feb 28, 2024 01:00 PM AMBUL[facility]ORY - [facility] Mar 25, 2024 10:00 AM [facility] Mar 25, 2024 10:30 AM [facility] Apr 02, 2024 02:00 PM [facility]AT[facility] Apr 04, 2024 02:00 PM [facility] Apr 08, 2024 01:00 PM AMBULATORY - REHAB MEDICIN [facility] Apr 12, 2024 09:45 AM [facility] Apr 16, 2024 10:00 AM AMBULATORY - REHAB MEDICIN E [facility] May 02, 2024 10:00 AM AMBULATORY - REHAB MEDICIN [facility] May 08, 2024 10:00 AM AMBULATORY - REHAB MEDICIN E [facility] May 29, 2024 11:30 AM [facility]ULATORY [facility]INE [facility] Jun 05, 2024 12:00 PM AMBULATORY - [facility] Jun 05, 2024 12:00 PM AMBULATORY - PS[facility]ATRY [facility] Jun 17, 2024 10:30 AM [facility]UL[facility]INE [facility] Jun 17, 2024 10:31 AM [facility]INE [facility] Jun 17, 2024 11:45 AM AMBULATORY - NONE [facility] Jun 21, 2024 11:00 AM [facility]ULATORY [facility] Jul 05, 2024 10:00 AM [facility] Jul 10, 2024 08:00 AM [facility] Social History: Smoking Status (Most current) and [...] VA-TOBACCO FORMER USER [place] [facility] Tobacco Use History This section includes a history of the smoking, or tobacco-related health factors, that were collected on or before the date of the Encounter. The data comes from the [place] facility where the Encounter took place. Date/Time Smoking Status/Tobac co Use Comment Facility Jun 05, 2023 11:00 AM VA-TOBACCO QUIT 15 YRS OR MORE [facility] Jun 06, 2022 01:00 PM VA-TOBACCO FORMER USER [facility] Jun 06, 2022 01:00 PM VA-TOBACCO QUIT 15 YRS OR MORE [facility] Jun 30, 2021 02:37 PM VA-TOBACCO FORMER USER [facility] Jun 30, 2021 02:37 PM VA-TOBACCO QUIT 5 TO < 15 YRS [facility] May 22, 2020 03:30 PM VA-TOBACCO NEVER USED [facility] May 08, [...] 04, 2003 07:57 AM HISTORY OF SMOKING [facility] Jun 03, 2002 01:11 PM HISTORY OF SMOKING [facility] Jun 03, 2002 01:11 PM QUIT TOBACCO USE > 7 YEARS AGO [facility] Advance Directives: All historical and [...] Jun 02, 2023 ADVANCE DIRECTIVE JENNIFER QUIROS [facility] Radiology Reports: +/- 30 days [...] comes from all [place] treatment facilities. Date/Time Radiology Report Provider Source Feb 12, 2024 10:52 AM SPINE LUMBOSACRAL MIN 2 VIEWS: BEBO SHEPHERD [id number] -[id number] M Exm Date: FEB 12, 2024@10:52 Req Phys: TOÑO CAI Loc: CWM/NO/PACT 3 (Req'g Loc) [facility] Loc: [facility] 1 Service: Unknown [facility] [place] [address] (Case 32 COMPLETE) SPINE LUMBOSACRAL MIN 2 VIEWS (RAD Detailed) CPT:55350 Reason for Study: acute pain. Clinical History: Please burn him a disc. Report Status: Verified Date Reported: FEB 13, 2024 Date Verified: FEB 13, 2024 Publicity Consultant E-Sig: Report: SPINE LUMBOSACRAL MIN 2 VIEWS HISTORY: acute pain. COMPARISON: None. TECHNIQUE: 3 view(s) of the lumbar spine, submitted to the [place] National Teleradiology Program (NTP) for interpretation. Impression: Normal lumbar lordosis is maintained. Vertebral bodies maintain normal heights. There is extensive anterior and posterior fusion with posterior transpedicular screws and rods and L2-L3 through L5-S1 interbody spacers. 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 No hardware failure. READING PHYSICIAN: Lorena Alcaraz M.D. -[id number] 02/12/2024 23:[address] [facility] National Teleradiology Program [phone] (For Medical Practitioner Use Only) Attention Patients / Veterans: If you have questions or concerns about these test results, please contact your ordering provider or primary care team. Primary Diagnostic Code: NO ALERT REQUIRED Primary Interpreting Staff: RADIOLOGY,OUTSIDE SERVICE, Staff Physician / RADIOLOGY,OUTSIDE SERVICE [facility] Encounter Notes: All associated encounter notes This section contains the clinical notes associated to the Encounter. Date/Time Encounter Note(s) Provider Source Feb 27, 2024 06:53 AM PHARMACY NOTE: LOCAL TITLE: PHARMACY CUSTOMER CARE MEDICATION RENEWAL STANDARD TITLE: PHARMACY NOTE DATE OF NOTE: FEB 27, 2024@06:53 ENTRY DATE: FEB 27, 2024@06:53:27 AUTHOR: VALENCIA BAUMANN COSIGNER: URGENCY: STATUS: COMPLETED Date: Feb Division: [facility] referred by Pharmacy Call Center for medication renewal: Non-controlled/maintenan ce medication Medications requested: [id number]$ ATORVASTATIN CALCIUM 80MG TAB Defer to specialty clinic To be mailed . Please review and renew if appropriate. *This note was generated by [facility]/[place] Pharmacy Customer Care. If you have any questions or need assistance, do not contact this author. Please refer all questions to your local, on-site pharmacy departments. /thomas/ VALENCIA BAUMANN [facility] Social Service Manager, [place]/Pharmacy Customer Care Signed: 02/27/2024 06:53 Receipt Acknowledged By: 02/27/2024 11:57 /thomas/ ALLIE CUELLO MD STAFF PHYSICIAN VALENCIA BAUMANN [facility]
--- OUTSIDE RECORDS SUMMARY | 2024-10-01 11:25 | XMS_ITS | Encounter Summary ---
Author Organization [facility] Address [address] [place] [address] Care Team Providers Care Women Designer Name Role Phone Jamilah Bueno Primary Care Provider [phone] Encounter Details Date Type Department Care Team (Late st Contact Info) Description 07/29/2024 Lab Requisition [facility] - Main Lab [address] [facility] [place] [address] Trina Brock MD [address] [place] [id number] Type 2 diabetes mellitus without complications (CMS/HCC V24, CMS/HCC V28); Atherosclerotic heart disease of [place] coronary artery without angina pectoris; Benign prostatic [...] as of this encounter Plan of Treatment Upcoming Encounters Date Type Department Care Team (Late st Contact Info) Description 10/30/2024 1:30 PM EDT Ancillary Procedure [facility] [address] [place] [address] 11/04/2024 3:40 PM EDT Office Visit [facility] Cardiology [facility] [address] [place] [address] Goldy Butler NP [address] [place] [address] [address] [place], [place] [phone] 02/24/2025 11:10 AM EDT Office Visit [facility] [address] [facility] [address] [place] [phone] Emmie Pickens NP [address] [place] [address] [address] [place], [place] [phone] documented as of this encounter Visit Diagnoses Diagnosis Type 2 diabetes mellitus without complications (CMS/HCC V24, CMS/HCC V28) Atherosclerotic heart disease of [place] coronary artery without angina pectoris Benign prostatic hyperplasia without lower urinary tract symptoms Occlusion and stenosis of left vertebral artery documented in this encounter Care Teams Women Designer Relationship Specialty Start Date End Date Jamilah Bueno PA [address] [place] [address] [address] [place] [address] PCP - General 08/23/24 documented as of this encounter
--- OUTSIDE RECORDS SUMMARY | 2024-10-01 11:25 | XMS_ITS | Encounter Summary ---
Author Name [facility] Organization [facility] Address [address] [place] [id number] Care Team Providers Care Print Line Inspector Name Role Phone TOÑO CAI Primary [...] [place] MED[place] SUPPLEMEN MASTER PSUED O MEDEX [facility] E Mar 19, 2004 [id number] [phone] HOLLIE SHEPHERD PATIENT [place] MED[place] SUPPLEMEN MASTER MEDEX [facility] E Mar 19, 2004 [id number] [phone] HOLLIE SHEPHERD [place] SUPPLEMEN MASTER MEDEX [facility] E Mar 19, 2004 [id number] [phone] HOLLIE SHEPHERD PATIENT BCBS [facility] MEDICARE SUPPLEMEN MASTER PSUED O MEDEX [place] E Mar 19, 2004 [id number] HOLLIE SHEPHERD PATIENT MEDICARE (WNR) MEDICARE (M) PART B Mar 19, 2004 PART B [id number] HOLLIE SHEPHERD PATIENT MEDICARE (WNR) MEDICARE (M) PART B Mar 19, 2004 PART B [id number] CORAHOLLIE SILVA ALD PATIENT MEDICARE (WNR) MEDICARE (M) PART B Mar 19, 2004 PART B [id number] CORAHOLLIE SILVA ALD PATIENT MEDICARE (WNR) MEDICARE (M) PART A Feb 17, 2003 PART A [id number] CORAHOLLIE SILVA ALD PATIENT MEDICARE (WNR) MEDICARE (M) PART A Feb 17, 2003 PART A [id number] CORAHOLLIE SILVA ALD PATIENT MEDICARE (WNR) MEDICARE (M) PART A Feb 17, 2003 PART A [id number] HOLLIE SHEPHERD PATIENT MEDICARE (WNR) MEDICARE (M) PART A Feb 17, 2003 PART A [id number] CORAHOLLIE SILVA PATIENT MEDICARE (WNR) MEDICARE (M) PART B Feb 17, 2003 PART B [id number] [phone] HOLLIE SHEPHERD PATIENT MEDICARE (WNR) MEDICARE (M) PART A Feb 17, 2003 PART A [id number] HOLLIE SHEPHERD PATIENT MEDICARE (WNR) MEDICARE (M) PART B Feb 17, 2003 PART B [id number] [phone] HOLLIE SHEPHERD PATIENT Selected Encounter This [...] 04:41 PM PRIMARY Localized edema FLORENTINO ERNST [facility] Plan of Treatment: Future Appointments (+ 6 months) and Future Tests (+/- 45 days) The Plan of Treatment section includes future care activities for the patient [facility] This section includes future appointments and future orders which are active, pending or scheduled. Future Appointments This section includes appointments that were scheduled to occur 6 months from the date of the Encounter, up to a maximum of 20 appointments. The data comes from all [facility] facilities. Appointment Date/Time Appointment Type Appointme nt Facility Name November 06, 2023 02:50 PM AMBULATORY [facility]IC[facility] [place] [facility] Nov 22, 2023 10:00 AM AMBULATORY - MEDIC[facility] [place] [facility] Nov 27, 2023 02:00 PM AMBULATORY - MEDICINE [facility] [place] [facility] Feb 12, 2024 10:00 AM AMBULATORY - MEDICINE [facility] [place] [facility] Feb 28, 2024 01:00 PM [facility] [place] [facility] Feb 28, 2024 01:00 PM AMBULATORY - PSYCHIATRY [facility] [place] [facility] Mar 25, 2024 10:00 AM AMBULATORY - MEDICINE [facility] [place] [facility] Mar 25, 2024 10:30 AM AMBULATORY - MEDICINE [facility] [place] [facility] Apr 02, 2024 02:00 PM AMBULATORY - MEDICINE [facility] [place] [facility] Apr 04, 2024 02:00 PM AMBULATORY - MEDICINE [facility] [place] [facility] Apr 08, 2024 01:00 PM AMBULATORY - REHAB MEDICIN E [facility] [place] [facility] Apr 12, 2024 09:45 AM AMBULATORY - MEDICINE [facility] [place] [facility] Apr 16, 2024 10:00 AM AMBULATORY - REHAB MEDICIN E [facility] [place] [facility] May 02, 2024 10:00 AM AMBULATORY - REHAB MEDICIN E [facility] [place] [facility] Active, Pending, and Scheduled Orders This section [...] PATH ORDER SURG PATH SPEC. UNKNOWN SP [facility] Lab Results: +/- 30 days [...] Unit Interpretation Reference Range Specimen Type Comment Oct 11, 2023 01:27 PM [facility] MICROALBUMIN CREATININE RATIO PANEL URINE Spe cimen Type: URINE No comment entered. Ordering Provider: ALLIE CUELLO Report Released Date/Time: Jul 26, 2023 10:12 AM Reporting Lab: [facility] [address] [facility] [address] Performing Lab: [facility] [address] [facility] [address] MICROALBUMIN/CREATININE RATIO 7.1 mg/g 0 -29.9 MICROALBUMIN,QUANTITATIVE 0.8 mg/dL RR U NAVAIL CREATININE URINE 113.29 mg/dL Oct 10, 2023 03:42 PM [facility] LIVER FUNCTION SERUM Specimen Type: SERUM Comment: *BASIC METABOLIC PANEL (fasting) Not Performed: Oct 10, 2023@15:51 b *PILOT BOAT DECKHAND Reason: dup *LIPID PANEL FASTING Not Performed: Oct 10, 2023@15:51 by [id number] *PILOT BOAT DECKHAND Reason: dup Ordering Provider: TOÑO CAI Report Released Date/Time: Jun 05, 2023 11:22 AM Reporting Lab: [facility] [address] [facility] [address] Performing Lab: [address] [address] PROTEIN,TOTAL 6.0 g/dL 6.0-8.3 ALBUMIN 4.2 g/dL 3.5-5.0 ALKALINE PHOSPHATASE 89 U/L 40-150 AST 29 U/L 5-34 ALT 29 U/L BILIRUBIN, TOTAL 1.3 mg/dL H 0.2-1.2 BILIRUBIN, DIRECT 0.5 mg/dL 0-0.5 Oct 10, 2023 03:41 PM [facility] TESTOSTERONE, TOTAL (WHV) SERUM Specimen Type : SERUM No comment entered. Ordering Provider: ALLIE CUELLO Report Released Date/Time: Jul 26, 2023 10:12 AM Reporting Lab: [facility] [address] [facility] [address] Performing Lab: [facility] [address] TESTOSTERONE, TOTAL (WHV) 755.20 ng/dL 2 20.00-892.00 Oct 10, 2023 03:41 PM [facility] PSA SERUM Specimen Type: SERUM No comment entered. Ordering Provider: ALLIE CUELLO Report Released Date/Time: Jul 26, 2023 10:12 AM Reporting Lab: [facility] [address] Performing Lab: [facility] [address] PSA 4.74 ng/mL H 0.00-4.00 Oct 10, 2023 03:41 PM [facility] LIPID PANEL FASTING SERUM Specimen Type: SERU M No comment entered. Ordering Provider: ALLIE CUELLO Report Released Date/Time: Jul 26, 2023 10:12 AM Reporting Lab: [facility] [address] Performing Lab: [facility] [address] CHOLESTEROL 96 mg/dL TRIGLYCERIDE 101 mg/dL 0-150 LDL calculated 44 mg/dL 0-129 CHOL/HDL 3.0 HDL CHOLESTEROL 32 mg/dL L 40-60 Oct 10, 2023 03:41 PM [facility] CALCIUM SERUM Specimen Type: SERUM No comment entered. Ordering Provider: ALLIE CUELLO Report Released Date/Time: Oct 10, 2023 07:35 AM Reporting Lab: [place] [address] [facility] [address] Performing Lab: [facility] [place] [facility] [address] [facility] [address] CALCIUM 9.1 mg/dL 8.5-10.2 Oct 10, 2023 03:41 PM [facility] VITAMIN D (25-OH) SERUM Specimen Type: SERUM No comment entered. Ordering Provider: ALLIE CUELLO Report Released Date/Time: Oct 10, 2023 07:35 AM Reporting Lab: [facility] [place] [facility] [address] [facility] [address] Performing Lab: [facility] [place] [address] [address] VITAMIN D (25-OH) 41 ng/mL 20-50 Oct 10, 2023 03:41 PM [facility] [place] [facility] BASIC METABOLIC PANEL (fasting) SERUM Specime n Type: SERUM No comment entered. Ordering Provider: ALLIE CUELLO Report Released Date/Time: Jul 26, 2023 10:12 AM Reporting Lab: [facility] [place] [facility] [address] [facility] [address] Performing Lab: [facility] [place] [address] [address] UREA NITROGEN 22 mg/dL 7-25 GLUCOSE 172 mg/dL H 65-100 SODIUM 137 mmol/L 135-145 POTASSIUM 4.0 mmol/L 3.5-5.0 CHLORIDE 101 mmol/L 100-110 CO2 26 meq/L 20-30 CREATININE, Serum 1.26 mg/dL 0.50-1.40 eGFR(CKD-EPI 2020) 56 mL/min L >60 Oct 10, 2023 03:41 PM [facility] CBC BLOOD Specimen Type: BLOOD No comment entered. Ordering Provider: ALLIE CUELLO Report Released Date/Time: Jul 26, 2023 10:12 AM Reporting Lab: [facility] [place] [facility] [address] [facility] [address] Performing Lab: [facility] [place] [address] [address] WBC 5.42 10*3/uL 4.50-11.00 RBC 4.87 10*6/uL 4.23-5.66 HGB 12.5 g/dL L 12.8-17 HCT 39.4 39.2-50.4 MCV 80.9 fL L 82-99 MCHC 31.7 g/dL 30.8-35.1 PLT 123 10*3/uL L 140-360 RDW-CV 14.7 12.0-16.0 MCH 25.7 pg L 26.2-32.6 Oct 10, 2023 03:41 PM [facility] HEMOGLOBIN A1C PANEL BLOOD Specimen Type: BLO OD Comment: Values obtained from A1C measurements can vary. For atypical A1C assays, a reported value of 7.0 could actually be between 6.72 and 7.28 if measured by a reference method. A reported value of 9.0 could actually be between 8.73 and 9.27. Ref: http://www.ngsp.org/CAPdata.asp Ordering Provider: ALLIE CUELLO Report Released Date/Time: Jul 26, 2023 10:12 AM Reporting Lab: [address] [address] Performing Lab: [address] [address] HEMOGLOBIN A1C 6.7 H 4.0-5.6 Vital Signs: All taken on the encounter date This section contains inpatient and outpatient Vital Signs collected on the date of the Encounter. Date/Time Temperature Pulse Blood Pressure Respiratory Rate SP02 Pain Height Weight Body Mass Index Source November 02, 2023 11:30 AM 98.1 89 134/72 16 95 [facility] Social History: Smoking Status (Most current) and [...] 05, 2023 11:00 AM VA-TOBACCO FORMER USER [facility] Tobacco Use History This section includes a history of the smoking, or tobacco-related health factors, that were collected on or before the date of the Encounter. The data comes from the [place] facility where the Encounter took place. Date/Time Smoking Status/Tobac co Use Comment Facility Jun 05, 2023 11:00 AM VA-TOBACCO QUIT 15 YRS OR MORE [facility] [place] [facility] Jun 06, 2022 01:00 PM VA-TOBACCO FORMER USER [facility] [place] [facility] Jun 06, 2022 01:00 PM VA-TOBACCO QUIT 15 YRS OR MORE [facility] [place] [facility] Jun 30, 2021 02:37 PM VA-TOBACCO FORMER USER [facility] [place] [facility] Jun 30, 2021 02:37 PM VA-TOBACCO QUIT 5 TO < 15 YRS [facility] [place] [facility] May 22, 2020 03:30 PM VA-TOBACCO NEVER USED [facility] [place] [facility] May 08, 2018 02:03 PM VA-TOBACCO FORMER USER [facility] [place] [facility] May 08, 2018 02:03 PM VA-TOBACCO QUIT 15 YRS OR MORE [facility] [place] [facility] November 10, 2017 02:33 PM QUIT TOBACCO USE > 7 YEARS AGO [facility] [place] [facility] October 21, 2016 01:55 PM QUIT TOBACCO USE > 7 YEARS AGO [facility] [place] [facility] Sep 18, 2015 11:24 AM QUIT TOBACCO USE > 7 YEARS AGO stopped 50 years ago [facility] [place] [facility] May 19, 2005 08:01 AM HISTORY OF SMOKING [facility] [place] [facility] May 31, 2004 01:02 PM HISTORY OF SMOKING [facility] [place] [facility] Jun 04, 2003 07:57 AM HISTORY OF SMOKING [facility] [place] [facility] Jun 03, 2002 01:11 PM HISTORY OF SMOKING [facility] [place] [facility] Jun 03, 2002 01:11 PM QUIT TOBACCO USE > 7 YEARS AGO [facility] [place] [facility] Advance Directives: All historical and current [...] 02, 2023 ADVANCE DIRECTIVE MARYANNEJENNIFER CARNES Garcia [facility] Pathology Reports: +/- 30 days [...] COSIGNER: URGENCY: STATUS: COMPLETED $APHDR Reporting Lab: [facility] [CLIA# [id number]] [address] [place] [phone] - - - - - - - [...] - - - POSTOPERATIVE DIAGNOSIS: Surgeon/physician: VEGA PNEA =-=-=-=-=-=-=-=-=-=-=-=-=-=- =-=-=-=-=-=-=-=-=-=-=-=-=-=- =-=-=-=-=-=-=-=-=-=-=-= - - - - - - - - - - - - - - - - - - - - - - - - - - - - - - - - - - - - - - - - PATHOLOGY REPORT Accession No. [facility] 174 - - - - - - - - - - - - - - - - - - - - - - - - - - - - - - - - - - - - - - - - Gross description: [facility] 24 1968;A;1;Nisa SHEPHERD This is a [facility] case number [facility] [id number]. Received in formalin is [...] lateral and deep tissue margins. CPT codes 01032e1 /thomas/ LESTER ANDERSON MD Board Certified Dermatopathologist Signed Oct 12, 2023@10:54 Performing Laboratory: Surgical Pathology Report Performed By: [facility] [CLIA# [id number]] [address] [place] [phone] $FTR - - - - - - [...] - - BEBO SHEPHERD STANDARD FORM 515 ID:[id number] SEX:M :1940 AGE: 83 LOC:CWM/NO/CVT/DERMATOLOGY/N P PCP: RUBY Long /thomas/ LESTER ANDERSON MD Board Certified Dermatopathologist Signed: 10/12/2023 10:54 LESTER ANDERSON MD [facility] Encounter Notes: All associated encounter notes This section contains the clinical notes associated to the Encounter. Date/Time Encounter Note(s) Provider Source November 02, 2023 11:15 AM PHYSICIAN DRESSMAKING TEACHER NOTE: LOCAL TITLE: PA NOTE STANDARD TITLE: PHYSICIAN DRESSMAKING TEACHER NOTE DATE OF NOTE: NOVEMBER 02, 2023@11:15 [...] 10/11/2023 ALLIE CUELLO Aortic Valve Disorder (SCT [id number]) 10/09/2023 TOÑO CAI Cerebrovascular disease I67.9 04/26/2023 [...] DE LA CRUZ MD Hypertension (SNOMED CT 92727305) I 04/26/2023 ALLIE CUELLO Spinal Stenosis * (ICD-9-CM 724.00) 02/05/2010 VESTA DE LA CRUZ MD Hyperlipidemia (SNOMED CT 48717150) 04/26/2023 ALLIE CUELLO Osteoarthritis * (ICD-9-CM 715.90) [...] hours and not worn throughout the night. [place] is advised in range of motion exercises to improve the reabsorption of fluid and to return here if persists or worsens. No clinical evidence of neurovascular, neurosensory or gross functional deficit at this time. ASSESSMENT/PLAN Localized edema As above [place] able to verbalize understanding of plan of care and agrees. >> MEDICATIONS Reviewed and reconciled with /es/ FLORENTINO ARREOLA MS,PA-C PHYSICIAN DRESSMAKING TEACHER Signed: 11/02/2023 13:12 FLORENTINO ERNST OR [facility]
--- OUTSIDE RECORDS SUMMARY | 2024-10-01 11:25 | XMS_ITS | Encounter Summary ---
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 Name Role Phone TOÑO PETER Primary Care [...] Relationship to Policy Wen [place] MEDICARE SUPPLEMEN MASTER PSUED O MEDEX BRONZ E Mar 19, 2004 [id number] HOLLIE SHEPHERD PATIENT [place] MED[place] SUPPLEMEN MASTER MEDEX BRONZ E Mar 19, 2004 [id number] [phone] HOLLIE SHEPHERD [place] SUPPLEMEN MASTER MEDEX BRONZ E Mar 19, 2004 [id number] [phone] HOLLIE SHEPHERD PATIENT BCBS [facility] MEDICARE SUPPLEMEN MASTER PSUED O MEDEX BRONZ E Mar 19, 2004 [id number] HOLLIE SHEPHERD PATIENT MEDICARE (WNR) MEDICARE (M) PART B Mar 19, 2004 PART B [id number] HOLLIE SHEPHERD PATIENT MEDICARE (WNR) MEDICARE (M) PART B Mar 19, 2004 PART B [id number] HOLLIE SHEPHERD ALD PATIENT MEDICARE (WNR) MEDICARE (M) PART B Mar 19, 2004 PART B [id number] [phone] CORAHOLLIE SILVA ALD PATIENT MEDICARE (WNR) MEDICARE (M) PART A Feb 17, 2003 PART A [id number] CORAHOLLIE SILVA ALD PATIENT MEDICARE (WNR) MEDICARE (M) PART A Feb 17, 2003 PART A [id number] CORAHOLLIE SILVA ALD PATIENT MEDICARE (WNR) MEDICARE (M) PART A Feb 17, 2003 PART A [id number] [phone] HOLLIE SHEPHERD PATIENT MEDICARE (WNR) MEDICARE (M) PART A Feb 17, 2003 PART A [id number] HOLLIE SHEPHERD PATIENT MEDICARE (WNR) MEDICARE (M) PART B Feb 17, 2003 PART B [id number] HOLLIE SHEPHERD PATIENT MEDICARE (WNR) MEDICARE (M) PART A Feb 17, 2003 PART A [id number] HOLLIE SHEPHERD PATIENT MEDICARE (WNR) MEDICARE (M) PART B Feb 17, 2003 PART B [id number] HOLLIE SHEPHERD PATIENT Selected Encounter This section includes the information on record at [place] for the Encounter. Date/Time Encounter Type Encounter Description Reason Provider Source May 08, 2024 10:00 AM THERAPEUTIC EXERCISES OCCUPATIONAL THERAPY ICD-10-CM M75.41 Impingement syndrome of right shoulder CYNTHIA MCLEAN Mikey Encounter Template Text not used by [place] Assessments - Encounter Diagnoses This section includes the primary and secondary diagnoses documented for the Encounter. Date/Time Primary/Secondary Diagnosis Diagnosis Name Provider Source May 21, 2024 04:32 PM PRIMARY Impingement syndrome of right shoulder CYNTHIA MCLEAN [place] [facility] Plan of Treatment: Future Appointments (+ 6 months) and Future Tests (+/- 45 days) The Plan of Treatment section includes future care activities for the [facility] This section includes future appointments and future orders which are active, pending or scheduled. Future Appointments This section includes appointments that were scheduled to occur 6 months from the date of the Encounter, up to a maximum of 20 appointments. The data comes from all [place] treatment facilities. Appointment Date/Time Appointment Type Appointme nt Facility Name May 29, 2024 11:30 AM AMBULATORY - MEDICINE [facility] [place] [facility] Jun 05, 2024 12:00 PM AMBULATORY [place] [facility] Jun 05, 2024 12:00 PM AMBULATORY - PSYCHIATRY [facility] [place] [facility] Jun 17, 2024 10:30 AM AMBULATORY - MEDICINE [facility] [place] [facility] Jun 17, 2024 10:31 AM AMBULATORY - MEDICINE [facility] [place] [facility] Jun 17, 2024 11:45 AM AMBULATORY - NONE [facility] [place] [facility] Jun 21, 2024 11:00 AM AMBULATORY - MEDICINE [facility] [place] [facility] Jul 05, 2024 10:00 AM AMBULATORY - MEDICINE [facility] [place] [facility] Jul 10, 2024 08:00 AM AMBULATORY - MEDICINE [facility] [place] [facility] Jul 10, 2024 01:30 PM AMBULATORY - MEDICINE [facility] [place] [facility] Aug 01, 2024 11:00 AM AMBULATORY - MEDICINE [facility] [place] [facility] Aug 06, 2024 10:00 AM AMBULATORY - MEDICINE [facility] [place] [facility] Aug 16, 2024 02:00 PM AMBULATORY - MEDICINE [facility] [place] [facility] Aug 20, 2024 09:00 AM AMBULATORY - MEDICINE [facility] [place] [facility] Aug 22, 2024 11:00 AM AMBULATORY - MEDICINE [facility] [place] [facility] Sep 27, 2024 11:00 AM AMBULATORY - PSYCHIATRY [facility] [place] [facility] Oct 03, 2024 02:00 PM AMBULATORY - MEDICINE [facility] [place] [facility] Oct 08, 2024 11:00 AM AMBULATORY - NONE [facility] [place] [facility] Active, Pending, and Scheduled Orders This section includes a listing of several types of active, pending, and scheduled orders, including clinic medications orders, diagnostic test orders, procedure orders and consult orders; where the start date of the order is 45 days before the date of the Encounter or 45 days after the date of theEncounter. The data comes from all [place] treatment facilities. Test Date/Time Test Type Test Details Facility Name Jun 10, 2024 11:25 AM Consult Order COMMUNITY CARE-UROLOGY Cons Maintenance [employer] Choice [facility] Jun 17, 2024 12:00 AM Laboratory - Chemi stry Order FERRITIN BLOOD (SST-SERUM) [facility] Jun 17, 2024 12:00 AM Laboratory - Chemi stry Order IRON & TIBC PANEL BLOOD (SST-SERUM) [facility] Lab Results: +/- 30 days of the encounter This section includes the Chemistry and Hematology Lab Results on record with [place] for the patient. Radiology Reports and Pathology Reports are provided separately, in subsequent sections. Lab Results This section contains the Chemistry/Hematology Results that were resulted 30 days before or 30 daysafter the date of the Encounter. Date/Time Source Result Type Result - Unit Interpretation Reference Range Specimen Type Comment Jun 04, 2024 10:27 AM [facility] HEMOGLOBIN A1C PANEL BLOOD Specimen Type: BLOOD [...] May 29, 2024 06:36 PM Reporting Lab: [address] [address] Performing Lab: [address] [address] HEMOGLOBIN A1C 6.5 H 4.0-5.6 Jun 04, 2024 10:27 AM [facility] MICROALBUMIN CREATININE RATIO PANEL URINE Spe cimen Type: URINE No comment entered. Ordering Provider: TOÑO PETER Report Released Date/Time: May 29, 2024 06:36 PM Reporting Lab: [facility] [address] [facility] [address] Performing Lab: [address] [address] MICROALBUMIN/CREATININE RATIO 36.0 mg/g H 0-29.9 MICROALBUMIN,QUANTITATIVE 2.8 mg/dL RR U NAVAIL CREATININE URINE 77.84 mg/dL Jun 04, 2024 10:27 AM [facility] BASIC METABOLIC PANEL (non-fasting) SERUM Spe cimen Type: SERUM No comment entered. Ordering Provider: TOÑO PETER Report Released Date/Time: May 29, 2024 06:36 PM Reporting Lab: [address] [address] Performing Lab: [facility] [address] [facility] [address] UREA NITROGEN 19 mg/dL 7-25 GLUCOSE 187 mg/dL H 65-100 SODIUM 140 mmol/L 135-145 POTASSIUM 3.8 mmol/L 3.5-5.0 CHLORIDE 103 mmol/L 100-110 CO2 25 meq/L 20-30 CREATININE, Serum 0.97 mg/dL 0.50-1.40 eGFR(CKD-EPI 2020) 76 mL/min >60 Jun 04, 2024 10:27 AM [facility] TSH SERUM Specimen Type: SERUM No comment entered. Ordering Provider: TOÑO PETER Report Released Date/Time: May 29, 2024 06:36 PM Reporting Lab: [facility] [address] [facility] [address] Performing Lab: [facility] [address] [facility] [address] TSH 1.78 u[IU]/mL 0.35-5.00 Jun 04, 2024 10:27 AM [facility] LIPID PANEL, NON FASTING SERUM Specimen Type: SERUM No comment entered. Ordering Provider: TOÑO PETER Report Released Date/Time: May 29, 2024 06:36 PM Reporting Lab: [address] [address] Performing Lab: [address] [address] CHOLESTEROL 151 mg/dL TRIGLYCERIDE 146 mg/dL 0-150 LDL calculated 73 mg/dL 0-129 CHOL/HDL 3.1 HDL CHOLESTEROL 49 mg/dL 40-60 Jun 04, 2024 10:27 AM [facility] LIVER FUNCTION SERUM Specimen Type: SERUM No comment entered. Ordering Provider: TOÑO PETER Report Released Date/Time: May 29, 2024 06:36 PM Reporting Lab: [address] [address] Performing Lab: [address] [address] PROTEIN,TOTAL 5.5 g/dL L 6.0-8.3 ALBUMIN 3.7 g/dL 3.5-5.0 ALKALINE PHOSPHATASE 78 U/L 40-150 AST 20 U/L 5-34 ALT 19 U/L BILIRUBIN, TOTAL 1.3 mg/dL H 0.2-1.2 BILIRUBIN, DIRECT 0.5 mg/dL 0-0.5 May 08, 2024 11:24 AM [facility] TESTOSTERONE, TOTAL (WHV) SERUM Specimen Type : SERUM No comment entered. Ordering Provider: TOÑO PETER Report Released Date/Time: Aug 11, 2023 11:52 AM Reporting Lab: [address] [address] Performing Lab: [address] [address] TESTOSTERONE, TOTAL (WHV) 44.33 ng/dL L 22 0.00-892.00 May 08, 2024 11:24 AM [facility] CBC BLOOD Specimen Type: BLOOD No comment entered. Ordering Provider: TOÑO PETER Report Released Date/Time: Aug 11, 2023 11:52 AM Reporting Lab: [facility] [address] [facility] [address] Performing Lab: [address] [address] WBC 4.08 10*3/uL L 4.50-11.00 RBC 4.53 10*6/uL 4.23-5.66 HGB 13.1 g/dL 12.8-17 HCT 39.9 39.2-50.4 MCV 88.1 fL 82-99 MCHC 32.8 g/dL 30.8-35.1 PLT 130 10*3/uL L 140-360 RDW-CV 14.5 12.0-16.0 MCH 28.9 pg 26.2-32.6 May 08, 2024 11:24 AM [facility] LIPID PANEL FASTING SERUM Specimen Type: SERU M No comment entered. Ordering Provider: TOÑO PTEER Report Released Date/Time: Aug 11, 2023 11:52 AM Reporting Lab: [address] [address] Performing Lab: [address] [address] CHOLESTEROL 142 mg/dL TRIGLYCERIDE 179 mg/dL H 0-150 LDL calculated 64 mg/dL 0-129 CHOL/HDL 3.4 HDL CHOLESTEROL 42 mg/dL 40-60 May 08, 2024 11:24 AM [facility] BASIC METABOLIC PANEL (fasting) SERUM Specime n Type: SERUM No comment entered. Ordering Provider: TOÑO PETER Report Released Date/Time: Aug 11, 2023 11:52 AM Reporting Lab: [address] [address] Performing Lab: [address] [address] UREA NITROGEN 19 mg/dL 7-25 GLUCOSE 216 mg/dL H 65-100 SODIUM 142 mmol/L 135-145 POTASSIUM 3.5 mmol/L 3.5-5.0 CHLORIDE 107 mmol/L 100-110 CO2 25 meq/L 20-30 CREATININE, Serum 0.84 mg/dL 0.50-1.40 eGFR(CKD-EPI 2020) 85 mL/min >60 May 08, 2024 11:24 AM [facility] LIVER FUNCTION SERUM Specimen Type: SERUM No comment entered. Ordering Provider: TOÑO PETER Report Released Date/Time: Aug 11, 2023 11:52 AM Reporting Lab: [address] [address] Performing Lab: [address] [address] PROTEIN,TOTAL 5.5 g/dL L 6.0-8.3 ALBUMIN 3.6 g/dL 3.5-5.0 ALKALINE PHOSPHATASE 71 U/L 40-150 AST 20 U/L 5-34 ALT 24 U/L BILIRUBIN, TOTAL 1.1 mg/dL 0.2-1.2 May 08, 2024 11:24 AM [facility] CBC AND DIFF (AUTO) BLOOD Specimen Type: BLOO D No comment entered. Ordering Provider: TOÑO PETER Report Released Date/Time: Aug 11, 2023 11:52 AM Reporting Lab: [facility] [address] [facility] [address] Performing Lab: [address] [address] WBC 4.08 10*3/uL L 4.50-11.00 RBC 4.53 [...] 10*3/uL 0.00-0.00 May 08, 2024 11:23 AM [facility] [employer] [facility] OSMOLALITY (SERUM) SERUM Specimen Type: SERUM No comment entered. Ordering Provider: ALLIE CUELLO Report Released Date/Time: Nov 27, 2023 07:39 PM Reporting Lab: [facility] [employer] [facility] [address] [facility] [address] Performing Lab: [facility] [employer]ioUSEBuck [employer] [facility] [address] [facility] [address] OSMOLALITY (SERUM) 299 280-300 May 08, 2024 11:23 AM [facility] CALCIUM SERUM Specimen Type: SERUM Comment: *GLUCOSE Not Performed: May 08, 2024@11:36 by [id number] *COUNTER SUPERVISOR Reason: Duplicate *UREA NITROGEN Not Performed: May 08, 2024@11:36 by [id number] *COUNTER SUPERVISOR Reason: Duplicate *CREATININE (eGFR 2020) Not Performed: May 08, 2024@11:36 by [id number] *COUNTER SUPERVISOR Reason: Duplicate *SODIUM Not Performed: May 08, 2024@11:36 by [id number] *COUNTER SUPERVISOR Reason: Duplicate *CHLORIDE Not Performed: May 08, 2024@11:36 by [id number] *COUNTER SUPERVISOR Reason: Duplicate *CO2 Not Performed: May 08, 2024@11:36 by [id number] *COUNTER SUPERVISOR Reason: Duplicate *POTASSIUM Not Performed: May 08, 2024@11:36 by [id number] *COUNTER SUPERVISOR Reason: Duplicate Ordering Provider: ALLIE CUELLO Report Released Date/Time: Nov 27, 2023 07:39 PM Reporting Lab: [facility] [address] [facility] [address] Performing Lab: [facility] [address] [facility] [address] CALCIUM 8.5 mg/dL 8.5-10.2 May 08, 2024 11:23 AM [facility] VITAMIN D (25-[place]) SERUM Specimen Type: SERUM No comment entered. Ordering Provider: ALLIE CUELLO Report Released Date/Time: Nov 27, 2023 07:39 PM Reporting Lab: [facility] [address] [facility] [address] Performing Lab: [facility] [address] [facility] [address] VITAMIN D (25-[place]) 46 ng/mL 20-50 Social History: Smoking Status (Most current) and Tobacco Use (All prior to encounter date) This section includes the most current, and the historical, smoking and tobacco- related health factors from the [place] facility where the Encounter took place. Current Smoking Status This section includes the most current smoking, or tobacco-related health factor, from the [place] facility where the Encounter took place. Date/Time Current Smoking Status Comment [facility] Jun 05, 2023 11:00 AM VA-TOBACCO FORMER USER [facility] Tobacco Use History This section includes a history of the smoking, or tobacco-related health factors, that were collected on or before the date of the Encounter. The data comes from the [place] facility where the Encounter took place. Date/Time Smoking Status/Tobac co Use Comment Facility Jun 05, 2023 11:00 AM VA-TOBACCO QUIT 15 YRS OR MORE [place] [facility] [place] [facility] Jun 06, 2022 01:00 PM VA-TOBACCO FORMER USER [place] [facility] [place] [facility] Jun 06, 2022 01:00 PM VA-TOBACCO QUIT 15 YRS OR MORE [facility] [place] [facility] Jun 30, 2021 02:37 PM VA-TOBACCO FORMER USER [place] [facility] [place] [facility] Jun 30, 2021 02:37 PM VA-TOBACCO QUIT 5 TO < 15 YRS [facility] [place] [facility] May 22, 2020 03:30 PM VA-TOBACCO NEVER USED [place] [facility] [place] [facility] May 08, 2018 02:03 PM VA-TOBACCO FORMER USER [place] [facility] [place] [facility] May 08, 2018 02:03 PM VA-TOBACCO QUIT 15 YRS OR MORE [facility] November 10, 2017 02:33 PM QUIT TOBACCO USE > 7 YEARS AGO [facility] [place] [facility] October 21, 2016 01:55 PM QUIT TOBACCO USE > 7 YEARS AGO [facility] [place] [facility] Sep 18, 2015 11:24 AM QUIT TOBACCO USE > 7 YEARS AGO stopped 50 years ago [facility] [place] [facility] May 19, 2005 08:01 AM HISTORY OF SMOKING [place] [facility] May 31, 2004 01:02 PM H[facility]ORY OF SMOKING [facility] Jun 04, 2003 07:57 AM HISTORY OF SMOKING [place] [facility] [place] [facility] Jun 03, 2002 01:11 PM HISTORY OF SMOKING [place] [facility] Jun 03, 2002 01:11 PM QUIT TOBACCO USE > 7 YEARS AGO [facility] Advance Directives: All historical and current Section Date Range: From patient's date of to the date document was created. This section includes ALL of a patient's completed or amended [place] Advance and Rescinded Directives. The entries below indicate that a directive exists for the patient, but an actual copy is not included with this document. The data comes from all [place] facilities. Date Advance Directives Provider Source Jun 02, 2023 ADVANCE DIRECTIVE JENNIFER QUIROS [facility] RL [facility] Encounter Notes: All associated encounter notes This [...] Elevated PSA 2. Aortic Valve Disorder (SCT 7646394) 3. Cerebrovascular disease 4. Chronic recurrent major depressive disorder 5. Insulin pump present 6. Hypertension 7. Family history of cancer of colon 8. Testicular hypofunction 9. Osteoporosis 10. Major depressive disorder 11. RA - Rheumatoid arthritis 12. History of colonic polyp 13. Diverticular disease of colon 14. Adjustment disorder 15. Hemorrhoids 16. Polymyalgia Rheumatica 17. Microscopic Hematuria 18. Rosacea 19. Hypertension (SNOMED CT 45561240) 20. Spinal Stenosis * 21. Hyperlipidemia (SNOMED CT 24351412) 22. Osteoarthritis * 23. Lower Back Pain * 24. Vertigo 25. Diabetes mellitus type 2 (SNOMED CT 03372719) 26. Gastroesophageal Reflux Disorder MICHAEL: pt reports [...] O: Pt is R hand dominant. 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 hx; [place], 6 years. He enjoys woodworking. Clinical Presentation: [...] *wall ladder into flexion, 30x5 Access Code: [email or web address] URL: [email or web address] Date: 05/08/2024 Prepared by: [facility] Exercises - Seated Shoulder Flexion AAROM with [...] diagnosis code. /thomas/ Cynthia Mclean, MS OTR/L, CHT Occupational Therapist Signed: 05/08/2024 15:56 /thomas/ Toño Peter PA-C STAFF PHYSICIAN SENIOR ENLISTED ADVISOR Cosigned: 05/09/2024 07:39 CYNTHIA MCLEAN [facility]
--- OUTSIDE RECORDS SUMMARY | 2024-10-01 11:25 | XMS_ITS ---
Author Name [facility] [place] Organization [place] Address [address] [place] [address] Care Team Providers Care Shovel Engineer Name Role Phone TOÑO PETER Primary Care [...] Relationship to Policy Wen [place] MED[place]ARE SUPPLEMEN MASTER PSUED O [facility]EX [facility] E Mar 19, 2004 [id number] HOLLIE SHEPHERD PATIENT [place] SUPPLEMEN MASTER [place]EX [place] E Mar 19, 2004 [id number] HOLLIE SHEPHERD [place] SUPPLE[place] MASTER [place] E Mar 19, 2004 [id number] [phone] HOLLIE SHEPHERD PATIENT BCBS [facility] MEDICARE SUPPLEMEN MASTER PSUED O MEDEX [place] E Mar 19, 2004 [id number] HOLLIE SHEPHERD PATIENT MEDICARE (WNR) MEDICARE (M) PART B Mar 19, 2004 PART B [id number] [phone] HOLLIE SHEPHERD PATIENT MEDICARE (WNR) MEDICARE (M) PART B Mar 19, 2004 PART B [id number] [phone] CORAHOLLIE SILVA PATIENT MEDICARE (WNR) MEDICARE (M) PART B Mar 19, 2004 PART B [id number] CORAHOLLIE SILVA ALD PATIENT MEDICARE (WNR) MEDICARE (M) PART A Feb 17, 2003 PART A [id number] [phone] CORAHOLLIE SILVA ALD PATIENT MEDICARE (WNR) MEDICARE (M) PART A Feb 17, 2003 PART A [id number] [phone] [id number] CORAHOLLIE SILVA PATIENT MEDICARE (WNR) MEDICARE (M) PART A Feb 17, 2003 PART A [id number] HOLLIE SHEPHERD PATIENT MEDICARE (WNR) MEDICARE (M) PART A Feb 17, 2003 PART A [id number] CORAHOLLIE SILVA PATIENT MEDICARE (WNR) MEDICARE (M) PART B Feb 17, 2003 PART B [id number] [phone] HOLLIE SHEPHERD PATIENT MEDICARE (WNR) MEDICARE (M) PART A Feb 17, 2003 PART A [id number] [phone] HOLLIE SHEPHERD PATIENT MEDICARE (WNR) MEDICARE (M) PART B Feb 17, 2003 PART B [id number] HOLLIE SHEPHERD PATIENT Selected Encounter This [...] PM PRIMARY Rheumatoid arthritis, unspecified JACINTO PETER CT [facility] Feb 26, 2024 03:53 PM SECONDARY Age-related osteoporosis w/o current pathological fracture JACINTO PETER Yousif [place] [facility] [place] [facility] Plan of Treatment: Future Appointments (+ 6 months) and Future Tests (+/- 45 days) The Plan of Treatment section includes future care activities for the patient from all [facility] This section includes future appointments [...] 01:00 PM AMBULATORY - PS[place]ATRY [place] [facility] Feb 28, 2024 01:00 PM AMBULATORY - PS[place]CHIATRY [place] [facility] [facility] Mar 25, 2024 10:00 AM AMBULATORY - MEDICINE [place] [facility] [place] [facility] Mar 25, 2024 10:30 AM AMBULATORY - MEDICINE [facility] [place] [facility] Apr 02, 2024 02:00 PM AMBULATORY - MEDICINE [place] [facility] [place] [facility] Apr 04, 2024 02:00 PM AMBULATORY - MEDICINE [place] [facility] [place] [facility] Apr 08, 2024 01:00 PM AMBULATORY - REHAB MEDICIN E [facility] [place] [facility] Apr 12, 2024 09:45 AM AMBULATORY - MEDICINE [place] [facility] Apr 16, 2024 10:00 AM AMBULATORY - REHAB MEDICIN E [facility] [facility] May 02, 2024 10:00 AM AMBULATORY - REHAB MEDICIN E [facility] [place] [facility] May 08, 2024 10:00 AM AMBULATORY - REHAB MEDICIN E [facility] [facility] May 29, 2024 11:30 AM AMBULATORY - MEDICINE [place] [facility] [place] [facility] Jun 05, 2024 12:00 PM AMBULATORY [place] [facility] Jun 05, 2024 12:00 PM AMBULATORY - PSYCHIATRY [place] [facility] [place] [facility] Jun 17, 2024 10:30 AM AMBULATORY - MEDICINE [facility] [place] [facility] [place] [facility] Jun 17, 2024 10:31 AM AMBULATORY - MEDICINE [facility] [place] [facility] [place] [facility] Jun 17, 2024 11:45 AM AMBULATORY - NONE [place] [facility] [place] [facility] Jun 21, 2024 11:00 AM AMBULATORY - MEDICINE [place] [place] [facility] Jul 05, 2024 10:00 AM AMBULATORY - MEDICINE [facility] [place] [facility] [place] [facility] Jul 10, 2024 08:00 AM AMBULATORY - MEDICINE CT [place] [facility] Vital Signs: All taken on the encounter date This section contains inpatient and outpatient Vital Signs collected on the date of the Encounter. Date/Time Temperature Pulse Blood Pressure Respiratory Rate SP02 Pain Height Weight Body Mass Index Source Feb 12, 2024 10:00 AM 98.4 88 124/74 [address] [facility] [place] [facility] Social History: Smoking Status [...] took place. Date/Time Current Smoking Status Comment [facility] Jun 05, 2023 11:00 AM VA-TOBACCO FORMER USER CT [facility] [facility] Tobacco Use History This section includes a history of the smoking, or tobacco-related health factors, that were collected on or before the date of the Encounter. The data comes from the CT facility where the Encounter took place. Date/Time Smoking Status/Tobac co Use Comment Facility Jun 05, 2023 11:00 AM VA-TOBACCO QUIT 15 YRS OR MORE [facility] [place] [facility] Jun 06, 2022 01:00 PM VA-TOBACCO FORMER USER [facility] [facility] Jun 06, 2022 01:00 PM VA-TOBACCO QUIT 15 YRS OR MORE [facility] [place] [facility] Jun 30, 2021 02:37 PM VA-TOBACCO FORMER USER [facility] [place] [facility] Jun 30, 2021 02:37 PM VA-TOBACCO QUIT 5 TO < 15 YRS [facility] [place] [facility] May 22, 2020 03:30 PM VA-TOBACCO NEVER USED CT [facility] [place] [facility] May 08, 2018 02:03 PM VA-TOBACCO FORMER USER CT [facility] [place] [facility] May 08, 2018 02:03 PM VA-TOBACCO QUIT [address] [facility] [place] [place] [facility] November 10, 2017 02:33 PM QUIT TOBACCO USE > 7 YEARS AGO [facility] [place] [facility] October 21, 2016 01:55 PM QUIT TOBACCO USE > [address] [facility] [place] [facility] Sep 18, 2015 11:24 AM QUIT TOBACCO USE > 7 YEARS AGO stopped [address] [facility] [place] [facility] May 19, 2005 08:[address]MOKING [address] [facility] [place] [facility] May 31, 2004 01:[address] [facility] [address] [facility] Jun 04, 2003 07:[address]MOKING [address] [facility] [place] [facility] Jun 03, 2002 01:[address] [facility] Jun 03, 2002 01:11 PM QUIT TOBACCO USE > [facility] Advance Directives: All historical and [...] Jun 02, 20[address] ADVANCE [address] CNT [address] [facility] Radiology Reports: +/- 30 days [...] SPINE LUMBOSACRAL MIN 2 VIEWS: BEBO SHEPHERD [id number] -[id number] M Exm Date: FEB 12, 2024@10:52 Req Phys: TOÑO PETER Loc: CWM/NO/PACT 3 (Req'g Loc) Img Loc: [facility]/BUILDING 1 Service: Unknown [place] [address] (Case 32 COMPLETE) SPINE LUMBOSACRAL MIN 2 VIEWS (RAD Detailed) CPT:29923 Reason for Study: acute pain. Clinical History: Please burn him a disc. Report Status: Verified Date Reported: FEB 13, 2024 Date Verified: FEB 13, 2024 Open Winder E-Sig: Report: SPINE LUMBOSACRAL MIN 2 VIEWS HISTORY: acute pain. COMPARISON: None. TECHNIQUE: 3 view(s) of the lumbar spine, submitted to the CT National Teleradiology Program (NTP) for interpretation. Impression: Normal lumbar lordosis is maintained. Vertebral bodies maintain normal heights. There is extensive anterior and posterior fusion with posterior transpedicular screws and rods and L2-L3 through L5-S1 interbody spacers. 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 No hardware failure. READING PHYSICIAN: Lorena Alcaraz M.D. -[id number] 02/12/2024 23:26 [facility] National Teleradiology Program [phone] (For Medical Practitioner Use Only) Attention Patients / Veterans: If you have questions or concerns about these test results, please contact your ordering provider or primary care team. Primary Diagnostic Code: NO ALERT REQUIRED Primary Interpreting Staff: RADIOLOGY,OUTSIDE SERVICE, Staff Physician / RADIOLOGY,OUTSIDE SERVICE [facility] Encounter Notes: All associated encounter notes This section contains the clinical notes associated to the Encounter. Date/Time Encounter Note(s) Provider Source Feb 13, 2024 01:25 PM ADDENDUM: LOCAL TITLE: Addendum STANDARD TITLE: ADDENDUM DATE OF NOTE: FEB 13, 2024@13:25:06 ENTRY DATE: FEB 13, 2024@13:25:06 AUTHOR: VIJAYA KENDALL COSIGNER: URGENCY: STATUS: COMPLETED Spoke to [place] and relayed message per provider. agrees to PT consult and has already given copy of images to CC Rheum /es/ VIJAYA KENDALL RN REGISTERED NURSE Signed: 02/13/2024 13:25 Receipt Acknowledged By: 02/13/2024 16:52 /thomas/ Toño Peter PA-C STAFF PHYSICIAN SUPERVISOR DATA PROCESSING --- Original Document --- 02/12/24 RUBY NOTE: [...] follow with me, Dr Gilman or his cleat maker prn. I again advocate for him to [...] Elevated PSA 2. 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 3. Cerebrovascular disease s/p L carotid [...] Urologist 18. Rosacea 19. Hypertension (SNOMED CT 74083882) 20. Spinal Stenosis * 21. Hyperlipidemia (SNOMED CT 39715921) 22. Osteoarthritis * 23. Lower Back Pain * 24. Vertigo 25. Diabetes mellitus type 2 (SNOMED CT 78923449) 26. Gastroesophageal Reflux Disorder SERVICE CONNECTED % [...] /thomas/ Toño Peter PA-C STAFF PHYSICIAN SUPERVISOR DATA PROCESSING Signed: 02/12/2024 10:45 02/13/2024 ADDENDUM STATUS: COMPLETED [...] /thomas/ Toño Peter PA-C STAFF PHYSICIAN SUPERVISOR DATA PROCESSING Signed: 02/13/2024 08:18 Receipt Acknowledged By: 02/13/2024 13:25 /thomas/ VIJAYA KENDALL RN REGISTERED NURSE VIJAYA KENDALL CT CNTL [facility] Feb 13, 2024 08:16 AM ADDENDUM: LOCAL TITLE: Addendum STANDARD TITLE: ADDENDUM DATE OF NOTE: FEB 13, 2024@08:16:37 ENTRY DATE: FEB 13, 2024@08:16:37 AUTHOR: TOÑO PETER COSIGNER: URGENCY: STATUS: COMPLETED [...] /thomas/ Toño Peter PA-C STAFF PHYSICIAN SUPERVISOR DATA PROCESSING Signed: 02/13/2024 08:18 Receipt Acknowledged By: 02/13/2024 [...] follow with me, Dr Gilman or his cleat maker prn. I again advocate for him to [...] Elevated PSA 2. Aortic Valve Disorder (SCT 8070675) TAVR 10/03/2023 [facility]. 3. Cerebrovascular disease s/p L carotid [...] Urologist 18. Rosacea 19. Hypertension (SNOMED CT 48586496) 20. Spinal Stenosis * 21. Hyperlipidemia (SNOMED CT 49786373) 22. Osteoarthritis * 23. Lower Back Pain * 24. Vertigo 25. Diabetes mellitus type 2 (SNOMED CT 76154400) 26. Gastroesophageal Reflux Disorder SERVICE CONNECTED % [...] /thomas/ Toño Peter PA-C STAFF PHYSICIAN SUPERVISOR DATA PROCESSING Signed: 02/12/2024 10:45 02/13/2024 ADDENDUM STATUS: UNSIGNED You may not VIEW this UNSIGNED Addendum. TOÑO PETER [place] [facility] Feb 12, 2024 10:36 AM PHYSICIAN SUPERVISOR DATA PROCESSING NOTE: LOCAL TITLE: RUBY NOTE STANDARD TITLE: PHYSICIAN SUPERVISOR DATA PROCESSING NOTE DATE OF NOTE: FEB 12, 2024@10:36 [...] follow with me, Dr Gilman or his cleat maker prn. I again advocate for him to [...] Elevated PSA 2. Aortic Valve Disorder (SCT 6018002) TAVR 10/03/2023 [facility]. 3. Cerebrovascular disease s/p L carotid [...] Urologist 18. Rosacea 19. Hypertension (SNOMED CT 40942693) 20. Spinal Stenosis * 21. Hyperlipidemia (SNOMED CT 20417268) 22. Osteoarthritis * 23. Lower Back Pain * 24. Vertigo 25. Diabetes mellitus type 2 (SNOMED CT 16142907) 26. Gastroesophageal Reflux Disorder SERVICE CONNECTED % [...] /thomas/ Toño Peter PA-C STAFF PHYSICIAN SUPERVISOR DATA PROCESSING Signed: 02/12/2024 10:45 02/13/2024 ADDENDUM STATUS: COMPLETED [...] /thomas/ Toño Peter PA-C STAFF PHYSICIAN SUPERVISOR DATA PROCESSING Signed: 02/13/2024 08:18 Receipt Acknowledged By: 02/13/2024 13:25 /thomas/ VIJAYA KENDALL RN REGISTERED NURSE 02/13/2024 ADDENDUM STATUS: COMPLETED Spoke to and relayed message per provider. agrees to PT consult and has already given copy of images to CC Rheum /thomas/ VIJAYA KENDALL RN REGISTERED NURSE Signed: 02/13/2024 13:25 Receipt Acknowledged By: 02/13/2024 16:52 /thomas/ Toño Peter PA-C STAFF PHYSICIAN SUPERVISOR DATA PROCESSING 02/14/2024 ADDENDUM STATUS: COMPLETED faxed rx for azithromycin 500mg one tab my mouth prior to procedure from Dr Tanya GILMAN, LOCAL pcp, DATED 01/29. nO RECORDS. I do not reorder. /thomas/ Toño Peter PA-C STAFF PHYSICIAN SUPERVISOR DATA PROCESSING Signed: 02/14/2024 14:50 [address] [place] [facility] Feb 12, 2024 10:02 AM PREVENTIVE MEDICINE NURSING NOTE: LOCAL TITLE: CLINICAL REMINDERS/NURSING STANDARD TITLE: PREVENTIVE MEDICINE NURSING NOTE DATE OF NOTE: FEB 12, 2024@10:02 ENTRY DATE: FEB 12, 2024@10:02:38 AUTHOR: ODILON SIMPSON EXP COSIGNER: URGENCY: STATUS: COMPLETED Suicide Screen: C-SSRS Screening [place] Suicide Severity Rating Scale (C-SSRS) screener 1. [...] the past year. Incontinence Screen No incontinence. /es/ ODILON SIMPSON LPN Signed: 02/12/2024 10:04 ODILON SIMPSON CNTL [facility]
--- OUTSIDE RECORDS SUMMARY | 2024-10-01 11:25 | XMS_ITS | Encounter Summary ---
Author Name [place] Address [address] [place] [address] Care Team Providers Care Test Pilot Name Role Phone TOÑO CAI Primary Care [...] Relationship to Policy Wen [place] SUPPLEMEN MASTER PSUED O MEDEX [facility] E Mar 19, 2004 [id number] [phone] HOLLIE SHEPHERD [place] SUPPLEMEN MASTER MEDEX [place] E Mar 19, 2004 [id number] HOLLIE SHEPHERD [place] SUPPLEMEN MASTER [place]EX [place] E Mar 19, 2004 [id number] HOLLIE SHEPHERD PATIENT BCBS [facility] MEDICARE SUPPLEMEN MASTER PSUED O MEDEX [place] E Mar 19, 2004 [id number] HOLLIE SHEPHERD PATIENT MEDICARE (WNR) MEDICARE (M) PART B Mar 19, 2004 PART B [id number] HOLLIE SHEPHERD PATIENT MEDICARE (WNR) MEDICARE (M) PART B Mar 19, 2004 PART B [id number] HOLLIE SHEPHERD PATIENT MEDICARE (WNR) MEDICARE (M) PART B Mar 19, 2004 PART B [id number] HOLLIE SHEPHERD ALD PATIENT MEDICARE (WNR) MEDICARE (M) PART A Feb 17, 2003 PART A [id number] CORAHOLLIE SILVA ALD PATIENT MEDICARE (WNR) MEDICARE (M) PART A Feb 17, 2003 PART A [id number] HOLLIE SHEPHERD PATIENT MEDICARE (WNR) MEDICARE (M) PART A Feb 17, 2003 PART A [id number] HOLLIE SHEPHERD PATIENT MEDICARE (WNR) MEDICARE (M) PART A Feb 17, 2003 PART A [id number] [phone] HOLLIE SHEPHERD PATIENT MEDICARE (WNR) MEDICARE (M) PART B Feb 17, 2003 PART B [id number] [phone] HOLLIE SHEPHERD PATIENT MEDICARE (WNR) MEDICARE (M) PART A Feb 17, 2003 PART A [id number] [phone] HOLLIE SHEPHERD PATIENT MEDICARE (WNR) MEDICARE (M) PART B Feb 17, 2003 PART B [id number] HOLLIE SHEPHERD PATIENT Selected Encounter This section includes the information on record at [place] for the Encounter. Date/Time Encounter Type Encounter Description Reason Provider Source Sep 27, 2024 11:00 AM MTMS BY PHARM ISABELLA [facility] - IND ICD-10-CM F33.9 Major depressive disorder, recurrent, unspecified [facility] [place] E Encounter Template Text not used by [place] Assessments - Encounter Diagnoses This section includes the primary and secondary diagnoses documented for the Encounter. Date/Time Primary/Secondary Diagnosis Diagnosis Name Provider Source Sep 27, 2024 11:34 AM PRIMARY Major depressive disorder, recurrent, unspecified [place] [facility] [facility] [facility] Plan of Treatment: Future Appointments (+ 6 months) and Future Tests (+/- 45 days) The Plan of Treatment section includes future care activities for the patient from all [place] [facility]. This section includes future appointments and future orders which are active, pending or scheduled. Future Appointments This section includes appointments that were scheduled to occur 6 months from the date of the Encounter, up to a maximum of 20 appointments. The data comes from all [facility]. Appointment Date/Time Appointment Type Appointme nt Facility Name Oct 03, 2024 02:00 PM [facility] Oct 08, 2024 11:00 AM AMBULATORY - NONE [facility] November 15, 2024 11:00 AM [facility] Nov 27, 2024 11:00 AM AMBULATORY - MEDICINE [facility] Feb 25, 2025 10:00 AM AMBULATORY - PSYCHIATRY [facility] Active, Pending, and Scheduled Orders This section includes a listing of several types of active, pending, and scheduled orders, including clinic medications orders, diagnostic test orders, procedure orders and consult orders; where the start date of the order is 45 days before the date of the Encounter or 45 days after the date of theEncounter. The data comes from all [facility]. Test Date/Time Test Type Test Details Facility Name Aug 22, 2024 12:00 AM Laboratory - Chemi stry Order CALCIUM BLOOD (SST-SERUM) [facility] Aug 22, 2024 12:00 AM Laboratory - Chemi stry Order C-PEPTIDE (q) BLOOD (SST-SERUM) [facility] Oct 08, 2024 11:00 AM Imaging - General Radiology Order BONE DENSITY AXIAL HIPS,PELVIS.SPINE [facility] Social History: Smoking Status (Most current) and Tobacco Use (All prior to encounter date) This section includes the most current, and the historical, smoking and tobacco- related health factors from the [place] facility where the Encounter took place. Current Smoking Status This section includes the most current smoking, or tobacco-related health factor, from the [place] facility where the Encounter took place. Date/Time Current Smoking Status Comment Facil it Jun 17, 2024 10:31 AM VA-TOBACCO USE FOR TAMMY CIGARETTES [place] [facility] Tobacco Use History This section includes a history of the smoking, or tobacco-related health factors, that were collected on or before the date of the Encounter. The data comes from the [place] facility where the Encounter took place. Date/Time Smoking Status/Tobac co Use Comment [facility] Jun 17, 2024 10:31 AM VA-TOBACCO USE FORMER CIGARETTES [place] [facility] Jun 05, 2023 11:00 AM VA-TOBACCO FORMER USER [facility] [facility] Jun 05, 2023 11:00 AM VA-TOBACCO QUIT 15 YRS OR MORE [place] [facility] Jun 06, 2022 01:00 PM VA-TOBACCO FORMER USER [place] [facility] Jun 06, 2022 01:00 PM VA-TOBACCO QUIT 15 YRS OR MORE [place] [facility] Jun 30, 2021 02:37 PM VA-TOBACCO FORMER USER [place] [facility] Jun 30, 2021 02:37 PM VA-TOBACCO QUIT 5 TO < 15 YRS [place] [facility] May 22, 2020 03:30 PM VA-TOBACCO NEVER USED [place] [facility] May 08, 2018 02:03 PM VA-TOBACCO FORMER USER [place] [facility] May 08, 2018 02:03 PM VA-TOBACCO QUIT 15 YRS OR MORE [place] [facility] [place] [facility] November 10, 2017 02:33 PM QUIT TOBACCO USE > 7 YEARS AGO [place] [facility] [place] [facility] October 21, 2016 01:55 PM QUIT TOBACCO USE > 7 YEARS AGO [place] [facility] [place] [facility] Sep 18, 2015 11:24 AM QUIT TOBACCO USE > 7 YEARS AGO stopped 50 years ago [place] [facility] [place] [facility] May 19, 2005 08:01 AM HISTORY OF SMOKING [place] [facility] May 31, 2004 01:02 PM HISTORY OF SMOKING [place] [facility] Jun 04, 2003 07:57 AM HISTORY OF SMOKING [facility] [place] [facility] Jun 03, 2002 01:11 PM HISTORY OF SMOKING [facility] Jun 03, 2002 01:11 PM QUIT TOBACCO USE > 7 YEARS AGO [facility] Advance Directives: All historical and current Section Date Range: From patient's date of to the date document was created. This section includes ALL of a patient's completed or amended [place] Advance and Rescinded Directives. The entries below indicate that a directive exists for the patient, but an actual copy is not included with this document. The data comes from all [place] facilities. Date Advance Directives Provider Source Jun 02, 2023 ADVANCE DIRECTIVE JENNIFER QUIROS [facility]
--- OUTSIDE RECORDS SUMMARY | 2024-10-01 11:25 | XMS_ITS | Encounter Summary ---
Author Name [facility] ([place]) Organization [facility] [place] Address [address] [place] [id number] Care Team Providers Care Media Relations Specialist Name Role Phone TOÑO PETER Primary Care [...] [place] MEDICARE SUPPLEMEN MASTER PSUED O MEDEX [facility] E Mar 19, 2004 [id number] HOLLIE SHEPHERD PATIENT [place] MEDICARE SUPPLEMEN MASTER MEDEX BRONZ E Mar 19, 2004 [id number] [phone] HOLLIE SHEPHERD [place] SUPPLEMEN MASTER MEDEX [place] E Mar 19, 2004 [id number] [phone] HOLLIE SHEPHERD PATIENT BCBS [facility] MEDICARE SUPPLEMEN MASTER PSUED O MEDEX BRONZ E Mar 19, 2004 [id number] HOLLIE SHEPHERD PATIENT MEDICARE (WNR) MEDICARE (M) PART B Mar 19, 2004 PART B [id number] HOLLIE SHEPHERD PATIENT MEDICARE (WNR) MEDICARE (M) PART B Mar 19, 2004 PART B [id number] [phone] HOLLIE SHEPHERD ALD PATIENT MEDICARE (WNR) MEDICARE (M) PART B Mar 19, 2004 PART B [id number] CORAHOLLIE SILVA ALD PATIENT MEDICARE (WNR) MEDICARE (M) PART A Feb 17, 2003 PART A [id number] CORAHOLLIE SILVA ALD PATIENT MEDICARE (WNR) MEDICARE (M) PART A Feb 17, 2003 PART A [id number] CORAHOLLIE SILVA ALD PATIENT MEDICARE (WNR) MEDICARE (M) PART A Feb 17, 2003 PART A [id number] [phone] HOLLIE SHEPHERD PATIENT MEDICARE (WNR) MEDICARE (M) PART A Feb 17, 2003 PART A [id number] CORAHOLLIE SILVA PATIENT MEDICARE (WNR) MEDICARE (M) PART B Feb 17, 2003 PART B [id number] [phone] HOLLIE SHEPHERD PATIENT MEDICARE (WNR) MEDICARE (M) PART A Feb 17, 2003 PART A [id number] [phone] HOLLIE SHEPHERD PATIENT MEDICARE (WNR) MEDICARE (M) PART B Feb 17, 2003 PART B [id number] HOLLIE SHEPHERD PATIENT Selected Encounter This section includes the information on record at ME for the Encounter. Date/Time Encounter Type Encounter Description Reason Provider Source Jun 17, 2024 10:30 AM MTMS BY PHARM ADDL 15 MIN CLINICAL PHARMACY ICD-10-CM E11.8 Type 2 diabetes mellitus with unspecified complications ENE MELENDEZ E Encounter Template Text not used by ME Assessments - Encounter Diagnoses This section includes the primary and secondary diagnoses documented for the Encounter. Date/Time Primary/Secondary Diagnosis Diagnosis Name Provider Source Jun 17, 2024 01:27 PM PRIMARY Type 2 diabetes mellitus with unspecified complications ENE MELENDEZ [facility] Plan of Treatment: Future Appointments (+ 6 months) and Future Tests (+/- 45 days) The Plan of Treatment section includes future care activities for the patient [facility] This section includes future appointments and future orders which are active, pending or scheduled. Future Appointments This section includes appointments that were scheduled to occur 6 months from the date of the Encounter, up to a maximum of 20 appointments. The data comes from all ME treatment facilities. Appointment Date/Time Appointment Type Appointme nt Facility Name Jun 21, 2024 11:00 AM AMBULATORY - MEDICINE [place] [facility] [place] [facility] Jul 05, 2024 10:00 AM AMBULATORY - MEDICINE [place] [facility] [place] [facility] Jul 10, 2024 08:00 AM AMBULATORY - MEDICINE [place] [facility] [place] [facility] Jul 10, 2024 01:30 PM AMBULATORY - MEDICINE [place] [facility] [place] [facility] Aug 01, 2024 11:00 AM AMBULATORY - MEDICINE [place] [facility] [place] [facility] Aug 06, 2024 10:00 AM AMBULATORY - MEDICINE [place] [facility] [place] [facility] Aug 16, 2024 02:00 PM AMBULATORY - MEDICINE [place] [facility] [place] [facility] Aug 20, 2024 09:00 AM AMBULATORY - MEDICINE [place] [facility] [place] [facility] Aug 22, 2024 11:00 AM AMBULATORY - MEDICINE [place] [facility] [place] [facility] Sep 27, 2024 11:00 AM AMBULATORY - PSYCHIATRY [place] [facility] [place] [facility] Oct 03, 2024 02:00 PM AMBULATORY - MEDICINE [place] [facility] [facility] Oct 08, 2024 11:00 AM AMBULATORY - NONE [place] [facility] [place] [facility] November 15, 2024 11:00 AM AMBULATORY - MEDICINE [place] [facility] [facility] Nov 27, 2024 11:00 AM AMBULATORY - MEDICINE [place] [facility] [place] [facility] Active, Pending, and Scheduled Orders [...] 11:25 AM Consult Order COMMUNITY CARE-UROLOGY Cons In Service Coordinator's Choice [facility] [place] [facility] Jun 17, 2024 12:00 AM Laboratory - Chemi stry Order FERRITIN BLOOD (SST-SERUM) SP [facility] [place] [facility] Jun 17, 2024 12:00 AM Laboratory - Chemi stry Order IRON & TIBC PANEL BLOOD (SST-SERUM) SP [facility] [place] [facility] Jul 05, 2024 09:52 AM Consult Order COMMUNITY CARE-RHEUMATOLOGY Cons In Service [facility]'s Choice [facility] Lab Results: +/- 30 days of the encounter This section includes the Chemistry and Hematology Lab Results on record with ME for the patient. Radiology Reports and Pathology Reports are provided separately, in subsequent sections. Lab Results This section contains the Chemistry/Hematology Results that were resulted 30 days before or 30 daysafter the date of the Encounter. Date/Time Source Result Type Result - Unit Interpretation Reference Range Specimen Type Comment Jun 17, 2024 12:15 PM [facility] FERRITIN SERUM Specimen Type: SERUM No comment entered. Ordering Provider: SILVIA PETER Report Released Date/Time: Jun 17, 2024 11:07 AM Reporting Lab: [facility] [place] [facility] [address] [address] Performing Lab: [facility] [place] [address] [address] FERRITIN 37 ng/mL 20-300 Jun 17, 2024 12:15 PM [facility] IRON & TIBC PANEL SERUM Specimen Type: SERUM No comment entered. Ordering Provider: TOÑO PETER Report Released Date/Time: Jun 17, 2024 11:07 AM Reporting Lab: [place] [facility] [place] [facility] [address] [facility] [address] Performing Lab: [facility] [address] [facility] [address] TIBC 374 ug/dL 204-475 IRON 172 ug/dL H 40-160 Transferrin Saturation 46.0 20.0-50.0 Transferrin (TRF) 283 mg/dL 200-360 Jun 17, 2024 12:15 PM [facility] CBC AND DIFF (AUTO) BLOOD Specimen Type: BLOO D No comment entered. Ordering Provider: TOÑO PETER Report Released Date/Time: Jun 17, 2024 11:07 AM Reporting Lab: [facility] [address] [facility] [address] Performing Lab: [facility] [address] [facility] [address] WBC 4.91 10*3/uL 4.50-11.00 RBC 4.38 10*6/uL [...] 0.2 0.0-0.7 IMMATURE GRAN, ABS 0.01 10*3/uL 0.00-0.0 6 NRBC % 0.0 0.0-0.0 NRBC, ABS 0.00 10*3/uL 0.00-0.00 Jun 04, 2024 10:27 AM [facility] HEMOGLOBIN A1C PANEL BLOOD Specimen Type: BLO OD Comment: Values obtained from A1C measurements can vary. For atypical A1C assays, a reported value of 7.0 could actually be between 6.72 and 7.28 if measured by a reference method. A reported value of 9.0 could actually be between 8.73 and 9.27. Ref: http://www.ngsp.org/CAPdata.asp Ordering Provider: TOÑO PETER Report Released Date/Time: May 29, 2024 06:36 PM Reporting Lab: [facility] [address] Performing Lab: [facility] [address] HEMOGLOBIN A1C 6.5 H 4.0-5.6 Jun 04, 2024 10:27 AM [facility] MICROALBUMIN CREATININE RATIO PANEL URINE Spe cimen Type: URINE No comment entered. Ordering Provider: TOÑO PETER Report Released Date/Time: May 29, 2024 06:36 PM Reporting Lab: [facility] [address] [facility] [address] Performing Lab: [facility] [address] MICROALBUMIN/CREATININE RATIO 36.0 mg/g H 0-29.9 MICROALBUMIN,QUANTITATIVE 2.8 mg/dL RR U NAVAIL CREATININE URINE 77.84 mg/dL Jun 04, 2024 10:27 AM [facility] BASIC METABOLIC PANEL (non-fasting) SERUM Spe cimen Type: SERUM No comment entered. Ordering Provider: TOÑO PETER Report Released Date/Time: May 29, 2024 06:36 PM Reporting Lab: [facility] [address] Performing Lab: [address] [address] UREA NITROGEN 19 mg/dL 7-25 GLUCOSE 187 [...] PM Reporting Lab: [facility] [address] [facility] [address] Performing Lab: [facility] [address] [address] CHOLESTEROL 151 mg/dL TRIGLYCERIDE 146 mg/dL 0-150 LDL calculated 73 mg/dL 0-129 CHOL/HDL 3.1 HDL CHOLESTEROL 49 mg/dL 40-60 Jun 04, 2024 10:27 AM [facility] TSH SERUM Specimen Type: SERUM No comment entered. Ordering Provider: TOÑO PETER Report Released Date/Time: May 29, 2024 06:36 PM Reporting Lab: [facility] [address] [facility] [address] Performing Lab: [facility] [address] [facility] [address] TSH 1.78 u[IU]/mL 0.35-5.00 Jun 04, 2024 10:27 AM [facility] LIVER FUNCTION SERUM Specimen Type: SERUM No comment entered. Ordering Provider: TOÑO PETER Report Released Date/Time: May 29, 2024 06:36 PM Reporting Lab: [facility] [address] [facility] [address] Performing Lab: [address] [address] PROTEIN,TOTAL 5.5 g/dL L 6.0-8.3 ALBUMIN 3.7 g/dL 3.5-5.0 ALKALINE PHOSPHATASE 78 U/L 40-150 AST 20 U/L 5-34 ALT 19 U/L BILIRUBIN, TOTAL 1.3 mg/dL H 0.2-1.2 BILIRUBIN, DIRECT 0.5 mg/dL 0-0.5 Vital Signs: All taken on the encounter date This section contains inpatient and outpatient Vital Signs collected on the date of the Encounter. Date/Time Temperature Pulse Blood Pressure Respiratory Rate SP02 Pain Height Weight Body Mass Index Source Jun 17, 2024 10:35 AM 97.8 63 126/74 16 94 6 64.5 166.3 28 [facility] [place] [facility] Social History: Smoking Status (Most current) [...] took place. Date/Time Current Smoking Status Comment [facility] Jun 17, 2024 10:31 AM VA-TOBACCO USE FOR TAMMY CIGARETTES [facility] [place] [facility] Tobacco Use History This section includes a history of the smoking, or tobacco-related health factors, that were collected on or before the date of the Encounter. The data comes from the ME facility where the Encounter took place. Date/Time Smoking Status/Tobac co Use Comment Facility Jun 17, 2024 10:31 AM VA-TOBACCO USE FORMER CIGARETTES [facility] [place] [facility] Jun 05, 2023 11:00 AM VA-TOBACCO FORMER USER [facility] [place] [facility] Jun 05, 2023 11:00 AM VA-TOBACCO QUIT 15 YRS OR MORE [facility] [place] [facility] Jun 06, 2022 01:00 PM VA-TOBACCO FORMER USER [facility] [place] [facility] Jun 06, 2022 01:00 PM VA-TOBACCO QUIT 15 YRS OR MORE [facility] [place] [facility] Jun 30, 2021 02:37 PM VA-TOBACCO FORMER USER [facility] [place] [facility] Jun 30, 2021 02:37 PM VA-TOBACCO QUIT 5 TO < 15 YRS [facility] [place] [facility] May 22, 2020 03:30 PM VA-TOBACCO NEVER USED [facility] [place] [facility] May 08, 2018 02:03 PM VA-TOBACCO FORMER USER [facility] [place] [facility] May 08, 2018 02:03 PM VA-TOBACCO QUIT 15 YRS OR MORE [facility] November 10, 2017 02:33 PM QUIT TOBACCO USE > 7 YEARS AGO [facility] October 21, 2016 01:55 PM QUIT TOBACCO USE > 7 YEARS AGO [facility] Sep 18, 2015 11:24 AM QUIT TOBACCO USE > 7 YEARS AGO stopped 50 years ago [facility] May 19, 2005 08:01 AM HISTORY OF SMOKING [facility] May 31, 2004 01:02 PM [facility]ORY OF SMOKING [facility] Jun 04, 2003 07:57 AM [facility]MOKING [facility] Jun 03, 2002 01:11 PM H[facility]ORY OF SMOKING [facility] Jun 03, 2002 01:11 PM QUIT TOBACCO USE > 7 YEARS AGO [facility] Advance Directives: All historical and current Section Date Range: From patient's date of to the date document was created. This section includes ALL of a patient's completed or amended [place] Advance and Rescinded Directives. The entries below indicate that a directive exists for the patient, but an actual copy is not included with this document. The data comes from all [facility]. Date Advance Directives Provider Source Jun 02, [...] the Encounter. The data comes from all [place] treatment facilities. Date/Time Radiology Report Provider Source Jun 17, 2024 11:[address] ABDOMEN AND PELVIS WITH CONTRAST: BEBO SHEPHERD [id number] -[id number] M Exm Date: JUN 17, 2024@11:32 Req Phys: TOÑO PETER Loc: [facility] PACT 3 PA (Req'g Loc) Img Loc: [facility]/CT Service: Unknown [facility] [place] [facility] [place] [address] THIS IS AN AMENDED REPORT (Case [id number] COMPLETE) CT ABDOMEN AND PELVIS WITH CONTRA(CT Detailed) CPT:70846 Contrast Media : Non-ionic Iodinated Reason for Study: Diverticulitis? Clinical History: 84 yo male reports a few weeks of L>R mid abdominal pain,. Had one day of nonbloody diarrhea a week ago. PSH of Appy and Clau decades ago. Colonoscopy is up to date, routinely due next year. Please mind the insulin pump? Labs today. Report Status: Verified Date Reported: AUG 23, 2024 Date Verified: AUG 23, 2024 Pc Analyst E-Sig:/ES/NAPOLEON ELLIOTT JR Report: Exam: CT of abdomen and pelvis [...] the superior mesenteric and left renal arteries. Addendum: Addendum: No spigelian hernia is identified. The right posterior body wall herniated fat appears to represent a right-sided superior lumbar hernia with fat protruding through the superior lumbar triangle with no evidence of bowel or organs within it. It is adjacent to the right kidney with a 4.0 cm AP internal orifice/neck and containing only herniated fat. Primary Diagnostic Code: No immediate attention required Primary Interpreting Staff: EVGENY IGNACIO, Staff Physician VERIFIED BY: NAPOLEON ELLIOTT JR, Radiologist /EAD NAPOLEON ELLIOTT JR [facility] Encounter Notes: All associated encounter notes This section contains the clinical notes associated to the Encounter. Date/Time Encounter Note(s) Provider Source Jun 17, 2024 01:27 PM ADDENDUM: LOCAL TITLE: Addendum STANDARD TITLE: ADDENDUM DATE OF NOTE: JUN 17, 2024@13:27:34 ENTRY DATE: JUN 17, 2024@13:27:35 AUTHOR: ENE MELENDEZ COSIGNER: URGENCY: STATUS: COMPLETED Consult placed for endocrine to manage DM as CPP does not manage pumps. He was unsure of the supplies he needs, but states he has enough for the time being. CPP encouraged him to bring one of each supply to office for endo visit. Dexcom G7 consult placed, he currently uses this, no education needed at this time. /thomas/ ENE MELENDEZ PHARMD,BCPS CLINICAL PHARMACY PRACTITIONER Signed: 06/17/2024 13:29 Receipt Acknowledged By: 06/19/2024 09:37 /es/ ALLIE CUELLO MD STAFF PHYSICIAN 06/17/2024 17:08 /es/ Toño Peter PA-C STAFF PHYSICIAN ACTIVE DIRECTORY ENGINEER --- Original Document --- 06/17/24 CONSULT REPORT/PHARMACY: BEBO SHEPHERD, 84 yo WHITE MALE, presents for [id number] initial visit diabetes management. Today, pt reports he is not feeling well. He states he has a burning pain in his stomach, vomitted 2 x on 06/13/24 also had diarrhea with 3 BM accidents at this time. His legs gave out yesterday and he fell. He would like to see sick call provider or PCP. He currently uses a Tandem pump. He does not know which size needles or tubing he uses. He states he has used an insulin pump for ~16 years. Previously used metronic. He uses DexahoyDoc G7, states it is not on his phone, only his pump. He has been followed by in the community but now will switch to [facility] so he can continue to get insulin from [facility]. He reports BG to be well controlled overall. Notes occasional low bg - more often at night. Pump is loud enough to wake him up and he will drink orange juice. In the past 2 weeks has has 1 or 2 low bg. He has glucose tabs at home. He does have life alert set up to his home alarm. He always carries his phone with him. He states he has enough supplies for time being, would like consult placed for G7 to start getting it from ME. Current diabetes medications: - insulin aspart 40-42 units/ day ( 120-124 units/ 3 days) Previous diabetes medications: - metformin - had pancreatitis Medication Adherence: - has missed, not lately Diet Patterns: patient eats on avg. 2x/day: B: [id number] Omellette , sausages, home fries L: skips D: [phone] - spaghetti meatballs, macaroni hamburg, pot pies Snacks: baked goods Drinks: diet, caffeine free pepsi, unsweetened ice tea, decaf coffee in am Alcohol: none Tobacco: none Exercise: when he can Occupation: Personal Goals: SMBG: N/A on pump, SMBG assessment: HYPOGLYCEMIC Events: 1 in last 2 weeks (usually at night time) - Hypoglycemia recognition & treatment reviewed: Yes Allergies/ADR: PENICILLIN, ZOSYN, METFORMIN Active and Recently Outpatient Medications (including Supplies): Active Outpatient Medications [...] 2 WEEKS Inactive Outpatient Medications Status 1) ATORVASTATIN CALCIUM 80MG TAB TAKE ONE-HALF TABLET BY MOUTH DISCONTINUED ONCE DAILY Indication: FOR HIGH CHOLESTEROL 2) CALCIUM 200MG (CA CITRATE-950MG) TAB TAKE FOUR TABLETS BY DISCONTINUED MOUTH TWICE DAILY Indication: FOR OSTEOPOROSIS 3) CITALOPRAM HYDROBROMIDE 10MG TAB TAKE ONE-HALF TABLET BY DISCONTINUED MOUTH ONCE DAILY FOR DEPRESSION AND ANXIETY Indication: FOR MAJOR DEPRESSIVE DISORDER 4) CITALOPRAM HYDROBROMIDE 20MG TAB TAKE ONE-HALF TABLET BY DISCONTINUED MOUTH ONCE DAILY FOR MOOD (EDIT) Indication: FOR MAJOR DEPRESSIVE DISORDER 5) DENOSUMAB 60MG/ML INJ SYRINGE 1ML INJECT 60MG/1ML SUBCUTANEOUSLY ONE TIME Indication: FOR OSTEOPOROSIS 6) HYDROXYCHLOROQUINE SULFATE 200MG TAB TAKE ONE TABLET BY DISCONTINUED MOUTH ONCE DAILY 7) INSULIN,ASPART,HUMAN 100 UNIT/ML INJ INJECT 80 UNITS SUBCUTANEOUSLY EVERY DAY DIRECTED FOR USE WITH CONTINUOUS SUBCUTANEOUS INSULIN INFUSION DEVICE 8) LEFLUNOMIDE 10MG TAB TAKE ONE TABLET BY MOUTH ONCE DAILY FOR DISCONTINUED 14 DAYS, THEN TAKE TWO TABLETS ONCE DAILY 9) MULTIVIT/OPHTH AREDS2/LUTE/ZEAX CAP/TAB TAKE 1 CAPSULE BY DISCONTINUED MOUTH TWICE DAILY IN THE MORNING AND EVENING, WITH FOOD 10) NEEDLE 18G 1IN USE 1 NEEDLE EVERY 7 DAYS FOR INJECTION 11) NEEDLE 23G 1IN USE 1 NEEDLE EVERY 7 DAYS FOR INJECTION 12) OXYCODONE HCL 5MG TAB NOT SA TAKE ONE TABLET BY MOUTH EVERY 6 HOURS NEEDED FOR SEVERE PAIN 13) PREDNISONE 10MG TAB TAKE ONE TABLET BY MOUTH ONCE DAILY DISCONTINUED 14) PREDNISONE 1MG TAB TAKE FOUR TABLETS BY MOUTH ONCE DAILY DISCONTINUED 15) PREDNISONE 1MG TAB TAKE ONE TABLET BY MOUTH ONCE DAILY DISCONTINUED 16) SYRINGE 1ML LUER LOCK TIP USE 1 SYRINGE EVERY 7 DAYS 17) TAMSULOSIN HCL 0.4MG CAP TAKE ONE CAPSULE BY MOUTH AT DISCONTINUED BEDTIME Indication: FOR ENLARGED PROSTATE 18) TOCILIZUMAB 162MG/0.9ML INJ SYR 0.9ML INJECT 162MG DISCONTINUED SUBCUTANEOUSLY EVERY 2 WEEKS Active Non-VA Medications [...] TAB 5MG BY MOUTH TWICE DAILY ACTIVE 40 Total Medications Labs: CHEM 7 TREND LAB CUMULATIVE SELECTED Collection DT Spec GLUCOSE BUN CREATIN Sodium K+/Pot CL CO2 06/04/2024 10:27 SERUM 187 H 19 0.97 140 3.8 103 25 05/08/2024 11:24 SERUM 216 H 19 0.84 142 3.5 107 25 10/10/2023 15:41 SERUM 172 H 22 1.26 137 4.0 101 26 08/03/2023 08:05 SERUM 116 H 17 0.89 144 4.1 104 28 03/24/2023 12:17 SERUM 223 H 21 0.95 140 4.2 106 24 Collection DT Spec eGFR 06/24/2009 08:33 SERUM >60 12/24/2008 07:17 SERUM >60 05/22/2008 07:29 SERUM >60 11/20/2007 07:46 SERUM >60 05/21/2007 07:43 SERUM >60 LAB CUMULATIVE SELECTED 2 No selection items chosen for this component. CHEM 7 Results Collection DT Spec Sodium K+/Pot CL CO2 GLUCOSE BUN eGFR 06/04/2024 10:27 SERUM 140 3.8 103 25 187 H 19 05/08/2024 11:24 SERUM 142 3.5 107 25 216 H 19 10/10/2023 15:41 SERUM 137 4.0 101 26 172 H 22 08/03/2023 08:05 SERUM 144 4.1 104 28 116 H 17 03/24/2023 12:17 SERUM 140 4.2 106 24 223 H 21 12/29/2022 07:41 SERUM 142 3.8 106 25 119 H 20 09/27/2022 12:15 SERUM 140 4.0 103 24 180 H 21 09/15/2022 09:57 SERUM 140 3.8 107 24 177 H 22 07/07/2022 09:04 SERUM 140 3.8 103 27 173 H 15 10/30/2018 13:35 SERUM 139 4.4 104 27 180 H 21 eGFR CKD-EPI 202006/04/24 10:27 76 SERUM LIVER PANEL TREND Collection DT Spec AST ALT T BILI ALK SARWAT T. PROT ALBUMIN 06/04/2024 10:27 SERUM 20 19 1.3 H 78 5.5 L 3.7 05/08/2024 11:24 SERUM 20 24 1.1 71 5.5 L 3.6 10/10/2023 15:42 SERUM 29 29 1.3 H 89 6.0 4.2 08/03/2023 08:04 SERUM 23 36 0.8 80 5.6 L 4.0 03/24/2023 12:17 SERUM 20 30 0.6 86 5.6 L 3.7 HEMOGLOBIN A1C TREND Collection DT Spec HGBA1c 06/04/2024 10:27 BLOOD 6.5 H 10/10/2023 15:41 BLOOD 6.7 H 08/03/2023 08:04 BLOOD 6.0 H 03/24/2023 12:17 BLOOD 5.9 H 12/29/2022 07:41 BLOOD 6.1 H LIPID PANEL TREND Collection DT Spec CHOL HDL CHO/HDL LDL-c TRIG 06/04/2024 10:27 SERUM 151 49 3.1 73 146 05/08/2024 11:24 SERUM 142 42 3.4 64 179 H 10/10/2023 15:41 SERUM 96 32 L 3.0 44 101 08/03/2023 08:05 SERUM 107 43 2.5 50 70 03/24/2023 12:17 SERUM 154 47 3.3 80 137 Vitals: Ht: 64.5 in [163.8 cm] (05/29/2024 11:19) Wt: 173 lb [78.47 kg] (05/29/2024 11:19) BMI: BMI: 29.3 BP: 108/55 (05/29/2024 11:19) HR: 68 (05/29/2024 11:19) Assessment: DIABETES: -A1c is at goal of <8% (6.5% 05/2024) CARDIOVASCULAR: Goal BP = <130/80 mmHg -Current BP is108/55 (05/29/2024 11:19) -Lipids:within goal- atorvastatin 40 mg PREVENTIVE CARE: - Most recent visit to Podiatry: Randy in [place] - goes every 60 day for triming toes nails - Most recent visit to Optometry:03/25/24 Plan: No changes at this provider does not adjust insulin pumps. Consult placed for endocrine to manage DM. Consult placed for Dexcom G7. Pt seen by PCP instead of sick call. Pt given CPP card in the event he needs a supply/medication he is unable to obtain. Notes from civilian provider are requested. - Medication management - CONTINUE - using insulin pump as prescribed. - Continue to SMBG x/day - Monitor for s/sx hypoglycemia and contact clinic if BG consistently <70mg/dL - Healthy dietary and lifestyle modifications encouraged - Repeat A1c: 08/2024 EDUCATION -A shared decision-making approach was used in the development of this plan, involving the [place], clinician, and any caregivers present. The [place] was provided the opportunity express questions or concerns, and the plan was adjusted as needed to address these concerns. -Reviewed with any new medications, changes to the medication list, education, and plan from today's visit. Patient (and/or caregiver) verbalized understanding of the plan, including possible known risks and benefits, and had no additional questions. RTC: PRN Time Spent: 30 mins PBM PharmD Pharmacotherapy Rem V12: PHARMACIST INTERVENTIONS: TYPE 2 DIABETES MELLITUS Medication monitoring, no dosage change required, continue to monitor and assess Referral/consultation made by pharmacist for additional care /thomas/ ENE MELENDEZ PHARMD,[facility]AC[facility] PRACTITIONER Signed: 06/17/2024 13:27 ENE MELENDEZ [facility] Jun 17, 2024 09:56 AM PHARMACY CONSULT: LOCAL TITLE: CONSULT REPORT/PHARMACY STANDARD TITLE: PHARMACY CONSULT DATE OF NOTE: JUN 17, 2024@09:56 ENTRY DATE: JUN 17, 2024@09:56:29 AUTHOR: ENE MELENDEZ EXP COSIGNER: URGENCY: STATUS: COMPLETED CONSULT REPORT/PHARMACY Has ADDENDA BEBO SHEPHERD, 84 yo WHITE MALE, presents for [id number] initial visit diabetes management. Today, pt reports he is not feeling well. He states he has a burning pain in his stomach, vomitted 2 x on 06/13/24 also had diarrhea with 3 BM accidents at this time. His legs gave out yesterday and he fell. He would like to see sick call provider or PCP. He currently uses a Tandem pump. He does not know which size needles or tubing he uses. He states he has used an insulin pump for ~16 years. Previously used metronic. He uses DexahoyDoc G7, states it is not on his phone, only his pump. He has been followed by in the community but now will switch to [facility] so he can continue to get insulin from [facility]. He reports BG to be well controlled overall. Notes occasional low bg - more often at night. Pump is loud enough to wake him up and he will drink orange juice. In the past 2 weeks has has 1 or 2 low bg. He has glucose tabs at home. He does have life alert set up to his home alarm. He always carries his phone with him. He states he has enough supplies for time being, would like consult placed for G7 to start getting it from [facility]. Current diabetes medications: - insulin aspart 40-42 units/ day ( 120-124 units/ 3 days) Previous diabetes medications: - metformin - had pancreatitis Medication Adherence: - has missed, not lately Diet Patterns: patient eats on avg. 2x/day: B: [id number] Omellette , sausages, home fries L: skips D: [id number] - spaghetti meatballs, macaroni hamburg, pot pies Snacks: baked goods Drinks: diet, caffeine free pepsi, unsweetened ice tea, decaf coffee in am Alcohol: none Tobacco: none Exercise: when he can Occupation: Personal Goals: SMBG: N/A on pump, SMBG assessment: HYPOGLYCEMIC Events: 1 in last 2 weeks (usually at night time) - Hypoglycemia recognition & treatment reviewed: Yes Allergies/ADR: PENICILLIN, ZOSYN, METFORMIN Active and Recently Outpatient Medications (including Supplies): Active Outpatient Medications [...] 2 WEEKS Inactive Outpatient Medications Status 1) ATORVASTATIN CALCIUM 80MG TAB TAKE ONE-HALF TABLET BY MOUTH DISCONTINUED ONCE DAILY Indication: FOR HIGH CHOLESTEROL 2) CALCIUM 200MG (CA CITRATE-950MG) TAB TAKE FOUR TABLETS BY DISCONTINUED MOUTH TWICE DAILY Indication: FOR OSTEOPOROSIS 3) CITALOPRAM HYDROBROMIDE 10MG TAB TAKE ONE-HALF TABLET BY DISCONTINUED MOUTH ONCE DAILY FOR DEPRESSION AND ANXIETY Indication: FOR MAJOR DEPRESSIVE DISORDER 4) CITALOPRAM HYDROBROMIDE 20MG TAB TAKE ONE-HALF TABLET BY DISCONTINUED MOUTH ONCE DAILY FOR MOOD (EDIT) Indication: FOR MAJOR DEPRESSIVE DISORDER 5) DENOSUMAB 60MG/ML INJ SYRINGE 1ML INJECT 60MG/1ML SUBCUTANEOUSLY ONE TIME Indication: FOR OSTEOPOROSIS 6) HYDROXYCHLOROQUINE SULFATE 200MG TAB TAKE ONE TABLET BY DISCONTINUED MOUTH ONCE DAILY 7) INSULIN,ASPART,HUMAN 100 UNIT/ML INJ INJECT 80 UNITS SUBCUTANEOUSLY EVERY DAY DIRECTED FOR USE WITH CONTINUOUS SUBCUTANEOUS INSULIN INFUSION DEVICE 8) LEFLUNOMIDE 10MG TAB TAKE ONE TABLET BY MOUTH ONCE DAILY FOR DISCONTINUED 14 DAYS, THEN TAKE TWO TABLETS ONCE DAILY 9) MULTIVIT/OPHTH AREDS2/LUTE/ZEAX CAP/TAB TAKE 1 CAPSULE BY DISCONTINUED MOUTH TWICE DAILY IN THE MORNING AND EVENING, WITH FOOD 10) NEEDLE 18G 1IN USE 1 NEEDLE EVERY 7 DAYS FOR INJECTION 11) NEEDLE 23G 1IN USE 1 NEEDLE EVERY 7 DAYS FOR INJECTION 12) OXYCODONE HCL 5MG TAB NOT SA TAKE ONE TABLET BY MOUTH EVERY 6 HOURS NEEDED FOR SEVERE PAIN 13) PREDNISONE 10MG TAB TAKE ONE TABLET BY MOUTH ONCE DAILY DISCONTINUED 14) PREDNISONE 1MG TAB TAKE FOUR TABLETS BY MOUTH ONCE DAILY DISCONTINUED 15) PREDNISONE 1MG TAB TAKE ONE TABLET BY MOUTH ONCE DAILY DISCONTINUED 16) SYRINGE 1ML LUER LOCK TIP USE 1 SYRINGE EVERY 7 DAYS 17) TAMSULOSIN HCL 0.4MG CAP TAKE ONE CAPSULE BY MOUTH AT DISCONTINUED BEDTIME Indication: FOR ENLARGED PROSTATE 18) TOCILIZUMAB 162MG/0.9ML INJ SYR 0.9ML INJECT 162MG DISCONTINUED SUBCUTANEOUSLY EVERY 2 WEEKS Active Non-VA Medications [...] TAB 5MG BY MOUTH TWICE DAILY ACTIVE 40 Total Medications Labs: CHEM 7 TREND LAB CUMULATIVE SELECTED Collection DT Spec GLUCOSE BUN CREATIN Sodium K+/Pot CL CO2 06/04/2024 10:27 SERUM 187 H 19 0.97 140 3.8 103 25 05/08/2024 11:24 SERUM 216 H 19 0.84 142 3.5 107 25 10/10/2023 15:41 SERUM 172 H 22 1.26 137 4.0 101 26 08/03/2023 08:05 SERUM 116 H 17 0.89 144 4.1 104 28 03/24/2023 12:17 SERUM 223 H 21 0.95 140 4.2 106 24 Collection DT Spec eGFR 06/24/2009 08:33 SERUM >60 12/24/2008 07:17 SERUM >60 05/22/2008 07:29 SERUM >60 11/20/2007 07:46 SERUM >60 05/21/2007 07:43 SERUM >60 LAB CUMULATIVE SELECTED 2 No selection items chosen for this component. CHEM 7 Results Collection DT Spec Sodium K+/Pot CL CO2 GLUCOSE BUN eGFR 06/04/2024 10:27 SERUM 140 3.8 103 25 187 H 19 05/08/2024 11:24 SERUM 142 3.5 107 25 216 H 19 10/10/2023 15:41 SERUM 137 4.0 101 26 172 H 22 08/03/2023 08:05 SERUM 144 4.1 104 28 116 H 17 03/24/2023 12:17 SERUM 140 4.2 106 24 223 H 21 12/29/2022 07:41 SERUM 142 3.8 106 25 119 H 20 09/27/2022 12:15 SERUM 140 4.0 103 24 180 H 21 09/15/2022 09:57 SERUM 140 3.8 107 24 177 H 22 07/07/2022 09:04 SERUM 140 3.8 103 27 173 H 15 10/30/2018 13:35 SERUM 139 4.4 104 27 180 H 21 eGFR CKD-EPI 202006/04/24 10:27 76 SERUM LIVER PANEL TREND Collection DT Spec AST ALT T BILI ALK SARWAT T. PROT ALBUMIN 06/04/2024 10:27 SERUM 20 19 1.3 H 78 5.5 L 3.7 05/08/2024 11:24 SERUM 20 24 1.1 71 5.5 L 3.6 10/10/2023 15:42 SERUM 29 29 1.3 H 89 6.0 4.2 08/03/2023 08:04 SERUM 23 36 0.8 80 5.6 L 4.0 03/24/2023 12:17 SERUM 20 30 0.6 86 5.6 L 3.7 HEMOGLOBIN A1C TREND Collection DT Spec HGBA1c 06/04/2024 10:27 BLOOD 6.5 H 10/10/2023 15:41 BLOOD 6.7 H 08/03/2023 08:04 BLOOD 6.0 H 03/24/2023 12:17 BLOOD 5.9 H 12/29/2022 07:41 BLOOD 6.1 H LIPID PANEL TREND Collection DT Spec CHOL HDL CHO/HDL LDL-c TRIG 06/04/2024 10:27 SERUM 151 49 3.1 73 146 05/08/2024 11:24 SERUM 142 42 3.4 64 179 H 10/10/2023 15:41 SERUM 96 32 L 3.0 44 101 08/03/2023 08:05 SERUM 107 43 2.5 50 70 03/24/2023 12:17 SERUM 154 47 3.3 80 137 Vitals: Ht: 64.5 in [163.8 cm] (05/29/2024 11:19) Wt: 173 lb [78.47 kg] (05/29/2024 11:19) BMI: BMI: 29.3 BP: 108/55 (05/29/2024 11:19) HR: 68 (05/29/2024 11:) Assessment: DIABETES: -A1c is at goal of <8% (6.5% 05/2024) CARDIOVASCULAR: Goal BP = <130/80 mmHg -Current BP is108/55 (05/29/2024 11:19) -Lipids:within goal- atorvastatin 40 mg PREVENTIVE CARE: - Most recent visit to Podiatry: Randy in [place] - goes every 60 day for triming toes nails - Most recent visit to Optometry:03/25/24 Plan: No changes at this provider does not adjust insulin pumps. Consult placed for endocrine to manage DM. Consult placed for Dexcom G7. Pt seen by PCP instead of sick call. Pt given CPP card in the event he needs a supply/medication he is unable to obtain. Notes from civilian provider are requested. - Medication management - CONTINUE - using insulin pump as prescribed. - Continue to SMBG x/day - Monitor for s/sx hypoglycemia and contact clinic if BG consistently <70mg/dL - Healthy dietary and lifestyle modifications encouraged - Repeat A1c: 08/2024 EDUCATION -A shared decision-making approach was used in the development of this plan, involving the , clinician, and any caregivers present. The Newton was provided the opportunity express questions or concerns, and the plan was adjusted as needed to address these concerns. -Reviewed with Newton any new medications, changes to the medication list, education, and plan from today's visit. Patient (and/or caregiver) verbalized understanding of the plan, including possible known risks and benefits, and had no additional questions. RTC: PRN Time Spent: 30 mins PBM PharmD Pharmacotherapy Rem V12: PHARMACIST INTERVENTIONS: TYPE 2 DIABETES MELLITUS Medication monitoring, no dosage change required, continue to monitor and assess Referral/consultation made by pharmacist for additional care /benny MELENDEZ PHARMD,[facility] PRACTITIONER Signed: 06/17/2024 13:27 06/17/2024 ADDENDUM STATUS: COMPLETED Consult placed for endocrine to manage DM as CPP does not manage pumps. He was unsure of the supplies he needs, but states he has enough for the time being. CPP encouraged him to bring one of each supply to office for endo visit. Dexcom G7 consult placed, he currently uses this, no education needed at this time. /benny MELENDEZ PHARMD,[facility] PRACTITIONER Signed: 06/17/2024 13:29 Receipt Acknowledged By: * AWAITING SIGNATURE * ALLIE CUELLO * AWAITING SIGNATURE * TOÑO PETER JODI [facility]
--- OUTSIDE RECORDS SUMMARY | 2024-10-01 11:26 | XMS_ITS | Encounter Summary ---
Author Name [facility] [place] [facility] [place] Address [address] [place] [address] Care Team Providers Care Asset Protection Assistant Name Role Phone TOÑO CAI Primary Care [...] Relationship to Policy Wen [place] MED[place] SUPPLEMEN MASTER PSUED O MEDEX BRONZ E Mar 19, 2004 [id number] HOLLIE SHEPHERD PATIENT BCBS [place] MEDICARE SUPPLEMEN MASTER MEDEX BRONZ E Mar 19, 2004 [id number] [phone] HOLLIE SHEPHERD PATIENT [place] SUPPLEMEN MASTER MEDEX BRONZ E Mar 19, 2004 [id number] [phone] HOLLIE SHEPHERD PATIENT BCBS [facility] MEDICARE SUPPLEMEN MASTER PSUED O MEDEX BRONZ E Mar 19, 2004 [id number] [phone] HOLLIE SHEPHERD PATIENT MEDICARE (WNR) MEDICARE (M) PART B Mar 19, 2004 PART B [id number] HOLLIE SHEPHERD PATIENT MEDICARE (WNR) MEDICARE (M) PART B Mar 19, 2004 PART B [id number] [phone] CORAHOLLIE SILVA ALD PATIENT MEDICARE (WNR) MEDICARE (M) PART B Mar 19, 2004 PART B [id number] CORAHOLLIE SILVA ALD PATIENT MEDICARE (WNR) MEDICARE () PART A Feb 17, 2003 PART A [id number] CORAHOLLIE SILVA ALD PATIENT MEDICARE (WNR) MEDICARE () PART A Feb 17, 2003 PART A [id number] [phone] CORAHOLLIE SILVA ALD PATIENT MEDICARE (WNR) MEDICARE (M) PART A Feb 17, 2003 PART A [id number] [phone] HOLLIE SHEPHERD PATIENT MEDICARE (WNR) MEDICARE () PART A Feb 17, 2003 PART A [id number] CORAHOLLIE SILVA PATIENT MEDICARE (WNR) MEDICARE () PART B Feb 17, 2003 PART B [id number] [phone] HOLLIE SHEPHERD PATIENT MEDICARE (WNR) MEDICARE () PART A Feb 17, 2003 PART A [id number] HOLLIE SHEPHERD PATIENT MEDICARE (WNR) MEDICARE () PART B Feb 17, 2003 PART B [id number] HOLLIE SHEPHERD PATIENT Selected Encounter This section includes the information on record at [place] for the Encounter. Date/Time Encounter Type Encounter Description Reason Provider Source November 02, 2023 11:30 AM NURSING ASSESSMENT/EVAL [facility] PRIMARY CARE/MEDICINE ICD-10-CM R22.30 Localized swelling, mass and lump, unspecified upper limb DANNIE KENDALL E Encounter Template Text not used by [place] Assessments - Encounter Diagnoses This section includes the primary and secondary diagnoses documented for the Encounter. Date/Time Primary/Secondary Diagnosis Diagnosis Name Provider Source November 02, 2023 11:41 AM PRIMARY Localized swelling, mass and lump, unspecified upper limb DANNIE KENDALL [facility] [place] [facility] Plan of Treatment: Future Appointments (+ 6 months) and Future Tests (+/- 45 days) The Plan of Treatment section includes future care activities for the [facility] [place] [facility] This section includes future appointments and [...] - MEDICINE [facility] [place] [facility] Nov 22, 2023 10:00 AM AMBULATORY - MEDICINE [facility] [place] [facility] Nov 27, 2023 02:00 PM AMBULATORY - MEDICINE [facility] [place] [facility] Feb 12, 2024 10:00 AM AMBULATORY - MEDICINE [facility] [place] [facility] Feb 28, 2024 01:00 PM AMBULATORY [place] [facility] Feb 28, 2024 01:00 PM AMBULATORY - PSYCHIATRY [facility] [place] [facility] Mar 25, 2024 10:00 AM AMBULATORY - MEDICINE [facility] [place] [facility] Mar 25, 2024 10:30 AM AMBULATORY - MEDICINE [place] [facility] [place] [facility] Apr 02, 2024 02:00 PM AMBULATORY - MEDICINE [facility] [place] [facility] Apr 04, 2024 02:00 PM AMBULATORY - MEDICINE [place] [facility] [place] [facility] Apr 08, 2024 01:00 PM AMBULATORY - REHAB MEDICIN E [facility] [place] [facility] Apr 12, 2024 09:45 AM AMBULATORY - MEDICINE [facility] [place] [facility] Apr 16, 2024 10:00 AM AMBULATORY - REHAB MEDICIN E [facility] [place] [facility] May 02, 2024 10:00 AM AMBULATORY - REHAB MEDICIN E [facility] [place] [facility] Active, Pending, and Scheduled Orders [...] PATH ORDER SURG PATH SPEC. UNKNOWN SP [facility] Lab Results: +/- 30 [...] Type Comment Oct 11, 2023 01:27 PM [facility] MICROALBUMIN CREATININE RATIO PANEL URINE Spe cimen Type: URINE No comment entered. Ordering Provider: ALLIE CUELLO Report Released Date/Time: Jul 26, 2023 10:12 AM Reporting Lab: [facility] [address] [address] Performing Lab: [facility] [address] [address] MICROALBUMIN/CREATININE RATIO 7.1 mg/g 0 -29.9 MICROALBUMIN,QUANTITATIVE 0.8 mg/dL RR U NAVAIL CREATININE URINE 113.29 mg/dL Oct 10, 2023 03:42 PM [facility] LIVER FUNCTION SERUM Specimen Type: SERUM Comment: *BASIC METABOLIC PANEL (fasting) Not Performed: Oct 10, 2023@15:51 b *PAINTER AND PAPERHANGER APPRENTICE Reason: dup *LIPID PANEL FASTING Not Performed: Oct 10, 2023@15:51 by [id number] *PAINTER AND PAPERHANGER APPRENTICE Reason: dup Ordering Provider: TOÑO CAI Report Released Date/Time: Jun 05, 2023 11:22 AM Reporting Lab: [facility] [address] [address] Performing Lab: [facility] [address] [address] PROTEIN,TOTAL 6.0 g/dL 6.0-8.3 ALBUMIN 4.2 g/dL 3.5-5.0 ALKALINE PHOSPHATASE 89 U/L 40-150 AST 29 U/L 5-34 ALT 29 U/L BILIRUBIN, TOTAL 1.3 mg/dL H 0.2-1.2 BILIRUBIN, DIRECT 0.5 mg/dL 0-0.5 Oct 10, 2023 03:41 PM [facility] [place] [facility] TESTOSTERONE, TOTAL (WHV) SERUM Specimen Type : SERUM No comment entered. Ordering Provider: ALLIE CUELLO Report Released Date/Time: Jul 26, 2023 10:12 AM Reporting Lab: [facility] [place] [facility] [address] [address] Performing Lab: [facility] [address] [address] TESTOSTERONE, TOTAL (V) 755.20 ng/dL 2 20.00-892.00 Oct 10, 2023 03:41 PM [facility] PSA SERUM Specimen Type: SERUM No comment entered. Ordering Provider: ALLIE CUELLO Report Released Date/Time: Jul 26, 2023 10:12 AM Reporting Lab: [facility] [place] [address] [address] Performing Lab: [facility] [address] [address] PSA 4.74 ng/mL H 0.00-4.00 Oct 10, 2023 03:41 PM [facility] HEMOGLOBIN A1C PANEL BLOOD Specimen Type: [...] Jul 26, 2023 10:12 AM Reporting Lab: [facility] [address] [address] Performing Lab: [facility] [address] HEMOGLOBIN A1C 6.7 H 4.0-5.6 Oct 10, 2023 03:41 PM [facility] CBC BLOOD Specimen Type: BLOOD No comment entered. Ordering Provider: ALLIE CUELLO Report Released Date/Time: Jul 26, 2023 10:12 AM Reporting Lab: [facility] [address] [address] Performing Lab: [facility] [address] [address] WBC 5.42 10*3/uL 4.50-11.00 RBC 4.87 10*6/uL 4.23-5.66 HGB 12.5 g/dL L 12.8-17 HCT 39.4 39.2-50.4 MCV 80.9 fL L 82-99 MCHC 31.7 g/dL 30.8-35.1 PLT 123 10*3/uL L 140-360 RDW-CV 14.7 12.0-16.0 MCH 25.7 pg L 26.2-32.6 Oct 10, 2023 03:41 PM [facility] LIPID PANEL FASTING SERUM Specimen Type: SERU M No comment entered. Ordering Provider: ALLIE CUELLO Report Released Date/Time: Jul 26, 2023 10:12 AM Reporting Lab: [facility] [address] [address] Performing Lab: [address] [address] CHOLESTEROL 96 mg/dL TRIGLYCERIDE 101 mg/dL 0-150 LDL calculated 44 mg/dL 0-129 CHOL/HDL 3.0 HDL CHOLESTEROL 32 mg/dL L 40-60 Oct 10, 2023 03:41 PM [facility] CALCIUM SERUM Specimen Type: SERUM No comment entered. Ordering Provider: ALLIE CUELLO Report Released Date/Time: Oct 10, 2023 07:35 AM Reporting Lab: [facility] [address] [address] Performing Lab: [address] [address] CALCIUM 9.1 mg/dL 8.5-10.2 Oct 10, 2023 03:41 PM [facility] VITAMIN D (25-OH) SERUM Specimen Type: SERUM No comment entered. Ordering Provider: ALLIE CUELLO Report Released Date/Time: Oct 10, 2023 07:35 AM Reporting Lab: [facility] [address] [address] Performing Lab: [address] [address] VITAMIN D (25-OH) 41 ng/mL 20-50 Oct 10, 2023 03:41 PM [facility] BASIC METABOLIC PANEL (fasting) SERUM Specime n Type: SERUM No comment entered. Ordering Provider: ALLIE CUELLO Report Released Date/Time: Jul 26, 2023 10:12 AM Reporting Lab: [facility] [address] [address] Performing Lab: [address] [address] UREA NITROGEN 22 mg/dL 7-25 GLUCOSE 172 [...] 11:30 AM 98.1 89 134/72 16 95 [facility] Social History: Smoking Status (Most current) [...] VA-TOBACCO FORMER USER [facility] [place] [facility] Tobacco Use History This section includes a history of the smoking, or tobacco-related health factors, that were collected on or before the date of the Encounter. The data comes from the [place] facility where the Encounter took place. Date/Time Smoking Status/Tobac co Use Comment Facility Jun 05, 2023 11:00 AM VA-TOBACCO QUIT 15 YRS OR MORE [facility] [place] [facility] Jun 06, 2022 01:00 PM VA-TOBACCO FORMER USER [facility] [place] [facility] Jun 06, 2022 01:00 PM VA-TOBACCO QUIT 15 YRS OR MORE [facility] [place] [facility] Jun 30, 2021 02:37 PM VA-TOBACCO FORMER USER [facility] [place] [facility] Jun 30, 2021 02:37 PM VA-TOBACCO QUIT 5 TO < 15 YRS [facility] [place] [facility] May 22, 2020 03:30 PM VA-TOBACCO NEVER USED [facility] [place] [facility] May 08, 2018 02:03 PM VA-TOBACCO FORMER USER [facility] [place] [facility] May 08, 2018 02:03 PM VA-TOBACCO QUIT 15 YRS OR MORE [facility] [place] [facility] November 10, 2017 02:33 PM QUIT TOBACCO USE > 7 YEARS AGO [facility] [place] [facility] October 21, 2016 01:55 PM QUIT TOBACCO USE > 7 YEARS AGO [facility] [place] [facility] Sep 18, 2015 11:24 AM QUIT TOBACCO USE > 7 YEARS AGO stopped 50 years ago [facility] [place] [facility] May 19, 2005 08:01 AM HISTORY OF SMOKING [facility] [place] [facility] May 31, 2004 01:02 PM HISTORY OF SMOKING [facility] [place] [facility] Jun 04, 2003 07:57 AM HISTORY OF SMOKING [facility] [place] [facility] Jun 03, 2002 01:11 PM HISTORY OF SMOKING [facility] [place] [facility] Jun 03, 2002 01:11 PM QUIT TOBACCO USE > 7 YEARS AGO [facility] [place] [facility] Advance Directives: All historical and [...] 02, 2023 ADVANCE DIRECTIVE PEREZJENNIFER PABLO Garcia [place] [facility] Pathology Reports: +/- 30 days of [...] the Encounter. The data comes from all [place] treatment facilities. Date/Time Pathology Report Provider Source Oct 12, 2023 10:54 AM LR SURGICAL PATHOLOGY REPORT: LOCAL TITLE: LR SURGICAL PATHOLOGY REPORT STANDARD TITLE: PATHOLOGY DIAGNOSTIC STUDY REPORT DATE OF NOTE: OCT 12, 2023@10:54:23 ENTRY DATE: OCT 12, 2023@10:54:23 AUTHOR: LESTER ANDERSON MD EXP COSIGNER: URGENCY: STATUS: COMPLETED $APHDR Reporting Lab: [place] [facility] [CLIA# [id number]] [address] [place] [phone] - - - - - - - [...] - - - PATHOLOGY REPORT Accession No. [facility] 174 - - - - - - - - - - - - - - - - - - - - - - - - - - - - - - - - - - - - - - - - Gross description: [facility] 2440;A;1;Nisa SHEPHERD This is a [facility] case number [facility] [id number]. Received in formalin [...] lateral and deep tissue margins. CPT codes [id number] /thomas/ LESTER ANDERSON MD Board Certified Dermatopathologist Signed Oct 12, 2023@10:54 Performing Laboratory: Surgical Pathology Report Performed By: [facility] [CLIA# [id number]] [address] [place] [id number] $FTR - - - - - - [...] - - BEBO SHEPHERD STANDARD FORM 515 ID:[id number] SEX:M :1940 AGE: 83 LOC:CWM/NO/CVT/DERMATOLOGY/N P PCP: RUBY Long /thomas/ LESTER ANDERSON MD Board Certified Dermatopathologist Signed: 10/12/2023 10:54 LESTER ANDERSON MD [facility] Encounter Notes: All associated encounter [...] to Start Nurse Data: 83year old MALE [place] reports to Primary Care clinic for Walk-In visit. Today Vet walks in to clinic with complaint of right upper extremity swelling. [place] was in sick call yesterday with right elbow bursitis, procedure to drain elbow was preform. He woke up today with swelling to his hand and forearm. Not painful nor red, skin looks thin, puffy, and fluid filled. [place] removed dressing and jb bandage this morning, the area under the dressing and elbow is not swollen. This proposal manager writer did not see size of elbow yesterday [...] evaluation, Scheduled @ 11:30. Reminders Info Only: [facility] Connect Capable DUE NOW Mental Health Treatment Plan DUE NOW Medication Reconciliation DUE NOW COVID-19 Immunization DUE NOW (Optional) Whole Health Documentation DUE NOW Response: Understood and agreed to plan. /thomas/ VIJAYA KENDALL, RN REGISTERED NURSE Signed: 11/02/2023 11:41 VIJAYA KENDALL [facility]
--- OUTSIDE RECORDS SUMMARY | 2024-10-01 11:26 | XMS_ITS | Encounter Summary ---
Author Name [facility] [place] [facility] [place] Address [address] [place] [id number] Care Team Providers Care Indirect Sales Exec Name Role Phone TOÑO PETER Primary Care [...] [place] MED[place] SUPPLEMEN MASTER PSUED O MEDEX [facility] E Mar 19, 2004 [id number] HOLLIE SHEPHERD PATIENT [place] MED[place] SUPPLEMEN MASTER MEDEX [facility] E Mar 19, 2004 [id number] [phone] HOLLIE SHEPHERD PATIENT [place] SUPPLEMEN MASTER MEDEX [place] E Mar 19, 2004 [id number] [phone] HOLLIE SHEPHERD PATIENT BCBS [facility] MEDICARE SUPPLEMEN MASTER PSUED O MEDEX [facility] E Mar 19, 2004 [id number] [phone] HOLLIE SHEPHERD PATIENT MEDICARE (WNR) MEDICARE (M) PART B Mar 19, 2004 PART B [id number] HOLLIE SHEPHERD PATIENT MEDICARE (WNR) MEDICARE (M) PART B Mar 19, 2004 PART B [id number] [phone] CORAHOLLIE SILVA PATIENT MEDICARE (WNR) MEDICARE (M) PART B Mar 19, 2004 PART B [id number] CORAHOLLIE SILVA PATIENT MEDICARE (WNR) MEDICARE (M) PART A Feb 17, 2003 PART A [id number] [phone] CORAHOLLIE SILVA PATIENT MEDICARE (WNR) MEDICARE (M) PART A Feb 17, 2003 PART A [id number] CORAHOLLIE SILVA PATIENT MEDICARE (WNR) MEDICARE (M) PART A Feb 17, 2003 PART A [id number] CORAHOLLIE SILVA PATIENT MEDICARE (WNR) MEDICARE (M) PART A Feb 17, 2003 PART A [id number] [phone] CORAHOLLIE SILVA PATIENT MEDICARE (WNR) MEDICARE (M) PART B Feb 17, 2003 PART B [id number] [phone] CORAHOLLIE SILVA PATIENT MEDICARE (WNR) MEDICARE (M) PART A Feb 17, 2003 PART A [id number] [phone] HOLLIE SHEPHERD PATIENT MEDICARE (WNR) MEDICARE (M) PART B Feb 17, 2003 PART B [id number] HOLLIE SHEPHERD PATIENT Selected Encounter This section includes the information on record at [place] for the Encounter. Date/Time Encounter Type Encounter Description Reason Provider Source Jun 17, 2024 10:31 AM OFFICE O/P EST MOD 30 MIN PRIMARY CARE/MEDICINE ICD-10-CM K57.30 Dvrtclos of lg int w/o perforation or abscess w/o bleeding JUAN LUIS PETER Encounter Template Text not used by [place] Assessments - Encounter Diagnoses This section includes the primary and secondary diagnoses documented for the Encounter. Date/Time Primary/Secondary Diagnosis Diagnosis Name Provider Source Jul 06, 2024 07:23 AM PRIMARY Dvrtclos of lg int w/o perforation or abscess w/o bleeding JACINTO PETER [facility] [place] [facility] Jul 06, 2024 07:23 AM SECONDARY Essential (primary) hypertension JACINTO PETER [facility] [place] [facility] Jul 06, 2024 07:23 AM SECONDARY Family history of malignant neoplasm of digestive organs JACINTO PETER [facility] [place] [facility] Jul 06, 2024 07:23 AM SECONDARY Presence of insulin pump (external) (internal) JACINTO PETER [facility] [place] [facility] Jul 06, 2024 07:23 AM SECONDARY Type 2 diabetes mellitus with unspecified complications JACINTO PETER [facility] [place] [facility] Plan of Treatment: Future Appointments (+ 6 months) and Future Tests (+/- 45 days) The Plan of Treatment section includes future care activities for the patient [facility] [place] [facility] This section includes future appointments and [...] - MEDICINE [facility] [place] [facility] Jul 05, 2024 10:00 AM AMBULATORY - MEDICINE [facility] [place] [facility] Jul 10, 2024 08:00 AM AMBULATORY - MEDICINE [facility] [place] [facility] Jul 10, 2024 01:30 PM AMBULATORY - MEDICINE [facility] [place] [facility] Aug 01, 2024 11:00 AM AMBULATORY - MEDICINE [facility] [place] [facility] Aug 06, 2024 10:00 AM AMBULATORY - MEDICINE [facility] [place] [facility] Aug 16, 2024 02:00 PM AMBULATORY - MEDICINE [facility] [place] [facility] Aug 20, 2024 09:00 AM AMBULATORY - MEDICINE [facility] [place] [facility] Aug 22, 2024 11:00 AM AMBULATORY - MEDICINE [facility] [place] [facility] Sep 27, 2024 11:00 AM AMBULATORY - PSYCHIATRY [facility] [place] [facility] Oct 03, 2024 02:00 PM AM[facility] Oct 08, 2024 11:00 AM [facility] November 15, 2024 11:00 AM AMBULATORY - MEDICINE [facility] Nov 27, 2024 11:00 AM AMBULATORY - MEDICINE [facility] Active, Pending, and Scheduled Orders This [...] 11:25 AM Consult Order COMMUNITY CARE-UROLOGY Cons Medical Coder's Choice [facility] Jun 17, 2024 12:00 AM Laboratory - Chemi stry Order FERRITIN BLOOD (SST-SERUM) [facility] Jun 17, 2024 12:00 AM Laboratory - Chemi stry Order IRON & TIBC PANEL BLOOD (SST-SERUM) [facility] Jul 05, 2024 09:52 AM Consult Order COMMUNITY CARE-RHEUMATOLOGY Cons Medical Coder's Choice [facility] Lab Results: +/- 30 days of [...] Type Comment Jun 17, 2024 12:15 PM [facility] FERRITIN SERUM Specimen Type: SERUM No comment entered. Ordering Provider: SILVIA PETER Report Released Date/Time: Jun 17, 2024 11:07 AM Reporting Lab: [address] [address] Performing Lab: [facility] [address] [facility] [address] FERRITIN 37 ng/mL 20-300 Jun 17, 2024 12:15 PM [facility] IRON & TIBC PANEL SERUM Specimen Type: SERUM No comment entered. Ordering Provider: TOÑO PETER Report Released Date/Time: Jun 17, 2024 11:07 AM Reporting Lab: [facility] [address] [address] Performing Lab: [facility] [address] [address] TIBC 374 ug/dL 204-475 IRON 172 ug/dL H 40-160 Transferrin Saturation 46.0 20.0-50.0 Transferrin (TRF) 283 mg/dL 200-360 Jun 17, 2024 12:15 PM [facility] CBC AND DIFF (AUTO) BLOOD Specimen Type: BLOO D No comment entered. Ordering Provider: TOÑO PETER Report Released Date/Time: Jun 17, 2024 11:07 AM Reporting Lab: [facility] [address] [facility] [address] Performing Lab: [address] [address] WBC 4.91 10*3/uL 4.50-11.00 RBC 4.38 10*6/uL [...] 10*3/uL 0.00-0.00 Jun 04, 2024 10:27 AM [facility] HEMOGLOBIN A1C PANEL BLOOD Specimen Type: BL OOD Comment: Values obtained from A1C measurements can vary. For atypical A1C assays, a reported value of 7.0 could actually be between 6.72 and 7.28 if measured by a reference method. A reported value of 9.0 could actually be between 8.73 and 9.27. Ref: http://www.ngsp.org/CAPdata.asp Ordering Provider: TOÑO PETER Report Released Date/Time: May 29, 2024 06:36 PM Reporting Lab: [facility] [address] [facility] [address] Performing Lab: [address] [address] HEMOGLOBIN A1C 6.5 H 4.0-5.6 Jun 04, 2024 10:27 AM [facility] MICROALBUMIN CREATININE RATIO PANEL URINE Spe cimen Type: URINE No comment entered. Ordering Provider: TOÑO PETER Report Released Date/Time: May 29, 2024 06:36 PM Reporting Lab: [facility] [address] [facility] [address] Performing Lab: [address] [address] MICROALBUMIN/CREATININE RATIO 36.0 mg/g H 0-29.9 MICROALBUMIN,QUANTITATIVE 2.8 mg/dL RR U NAVAIL CREATININE URINE 77.84 mg/dL Jun 04, 2024 10:27 AM [facility] BASIC METABOLIC PANEL (non-fasting) SERUM Spe cimen Type: SERUM No comment entered. Ordering Provider: TOÑO PETER Report Released Date/Time: May 29, 2024 06:36 PM Reporting Lab: [facility] [address] [facility] [address] Performing Lab: [facility] [address] [facility] [address] UREA NITROGEN 19 mg/dL 7-25 GLUCOSE 187 mg/dL H 65-100 SODIUM 140 mmol/L 135-145 POTASSIUM 3.8 mmol/L 3.5-5.0 CHLORIDE 103 mmol/L 100-110 CO2 25 meq/L 20-30 CREATININE, Serum 0.97 mg/dL 0.50-1.40 eGFR(CKD-EPI 2020) 76 mL/min >60 Jun 04, 2024 10:27 AM [facility] TSH SERUM Specimen Type: SERUM No comment entered. Ordering Provider: TOÑO PETER Report Released Date/Time: May 29, 2024 06:36 PM Reporting Lab: [address] [address] Performing Lab: [address] [address] TSH 1.78 u[IU]/mL 0.35-5.00 Jun 04, 2024 10:27 AM [facility] LIPID PANEL, NON FASTING SERUM Specimen Type: SERUM No comment entered. Ordering Provider: TOÑO PETER Report Released Date/Time: May 29, 2024 06:36 PM Reporting Lab: [address] [address] Performing Lab: [address] [address] CHOLESTEROL 151 mg/dL TRIGLYCERIDE 146 mg/dL 0-150 LDL calculated 73 mg/dL 0-129 CHOL/HDL 3.1 HDL CHOLESTEROL 49 mg/dL 40-60 Jun 04, 2024 10:27 AM [facility] LIVER FUNCTION SERUM Specimen Type: SERUM No comment entered. Ordering Provider: TOÑO PETER Report Released Date/Time: May 29, 2024 06:36 PM Reporting Lab: [facility] [address] [facility] [address] Performing Lab: [facility] [address] [facility] [address] PROTEIN,TOTAL 5.5 g/dL L 6.0-8.3 ALBUMIN 3.7 [...] 126/74 16 94 6 64.5 166.3 28 [facility] Social History: Smoking Status (Most current) [...] Current Smoking Status Comment Ninfa armstrong Jun 17, 2024 10:31 AM VA-TOBACCO USE FOR TAMMY CIGARETTES [facility] Tobacco Use History This section includes a history of the smoking, or tobacco-related health factors, that were collected on or before the date of the Encounter. The data comes from the [place] facility where the Encounter took place. Date/Time Smoking Status/Tobac co Use Comment Facility Jun 17, 2024 10:31 AM VA-TOBACCO USE FORMER CIGARETTES [facility] Jun 05, 2023 11:00 AM VA-TOBACCO FORMER USER [facility] Jun 05, 2023 11:00 AM [place]-TO[place]CO QUIT 15 YRS OR MORE [facility] [place] [facility] Jun 06, 2022 01:00 PM VA-TOBACCO FORMER USER [facility] [place] [facility] Jun 06, 2022 01:00 PM VA-TOBACCO QUIT 15 YRS OR MORE [facility] [place] [facility] Jun 30, 2021 02:37 PM VA-TOBACCO FORMER USER [facility] [place] [facility] Jun 30, 2021 02:37 PM VA-TOBACCO QUIT 5 TO < 15 YRS [facility] [place] [facility] May 22, 2020 03:30 PM VA-TOBACCO NEVER USED [facility] [place] [facility] May 08, 2018 02:03 PM VA-TOBACCO FORMER USER [facility] [place] [facility] May 08, 2018 02:03 PM VA-TOBACCO QUIT 15 YRS OR MORE [facility] [place] [facility] November 10, 2017 02:33 PM QUIT TOBACCO USE > 7 YEARS AGO [facility] [place] [facility] October 21, 2016 01:55 PM QUIT TOBACCO USE > 7 YEARS AGO [facility] [place] [facility] Sep 18, 2015 11:24 AM QUIT TOBACCO USE > 7 YEARS AGO stopped 50 years ago [facility] [place] [facility] May 19, 2005 08:01 AM HISTORY OF SMOKING [facility] [place] [facility] May 31, 2004 01:02 PM HISTORY OF SMOKING [facility] [place] [facility] Jun 04, 2003 07:57 AM HISTORY OF SMOKING [facility] [place] [facility] Jun 03, 2002 01:11 PM HISTORY OF SMOKING [facility] [place] [facility] Jun 03, 2002 01:11 PM QUIT TOBACCO USE > 7 YEARS AGO [facility] [place] [facility] Advance Directives: All historical and current [...] 2023 ADVANCE DIRECTIVE JENNIFER QUIROS [facility] Radiology Reports: +/- 30 days of [...] comes from all [place] treatment facilities. Date/Time Radiology Report Provider Source Jun 17, 2024 11:[address] ABDOMEN AND PELVIS WITH CONTRAST: BEBO SHEPHERD [id number] -[id number] M Ex Date: JUN 17, 2024@11:32 Req Phys: TOÑO PETER Loc: [facility] PACT 3 PA (Req'g Loc) Img Loc: [facility]/CT Service: [place] [address] THIS IS AN AMENDED REPORT (Case [id number] COMPLETE) CT ABDOMEN AND PELVIS WITH CONTRA(CT Detailed) CPT:51744 Contrast Media : Non-ionic Iodinated Reason for [...] 23, 2024 Date Verified: AUG 23, 2024 Drum Printer E-Sig:/ES/NAPOLEON ELLIOTT JR Report: Exam: CT of [...] Physician VERIFIED BY: NAPOLEON ELLIOTT JR, Radiologist /NAPOLEON SCHMITZ JR [facility] [place] [facility] Encounter Notes: All associated encounter notes This section contains the clinical notes associated to the Encounter. Date/Time Encounter Note(s) Provider Source Jun 17, 2024 01:43 PM ADDENDUM: LOCAL TITLE: Addendum STANDARD TITLE: ADDENDUM DATE OF NOTE: JUN 17, 2024@13:43:22 ENTRY DATE: JUN 17, 2024@13:43:23 AUTHOR: TOÑO PETER COSIGNER: URGENCY: STATUS: COMPLETED Please inform him that CBC does not find anemia, some other labs are not yet back. CT does NOT find diverticulitis. A small hernia is found as well as narrowing in two arteries. I will enter a surgical consult to consider offering him hernia repair. He should consider a vascular consult for stening or other intervention. Please mail him a fit kit. Fax ct and six months of labs to Dr Tim Mckeon to consider vascular at [facility]. /thomas/ Toño Peter PA-C STAFF PHYSICIAN TRANSCRIPT CLERK Signed: 06/17/2024 13:51 Receipt Acknowledged By: 06/18/2024 13:30 /thomas/ VIJAYA KENDALL RN REGISTERED NURSE --- Original Document --- 06/17/24 RUBY NOTE: CC/HPI/A/P: 84 year old MALE here in follow-up for; 84 yo male reports a few weeks of L>R mid abdominal pain,. Had one day of nonbloody diarrhea a week ago. PSH of Appy and Clau decades ago. Colonoscopy is up to date, routinely due next year. FH of colorectal cancer, HE has diverticulosis and well as hx of polyps and 'my of diverticulitis' so he is concerned. He adds that his glucometer wakes him up 'about once a week' with low sugars. Finally, he reports that his dysequilibrium has worsened this winter. He 'went down' going to the bathroom a few nights ago 'Didn't pass out;' didn't check his meter and we can't find the reading. Review of systems: Patient reports no changes [facility], in meds or any admissions. Active problems - Computerized Problem List is the source for the followin. Elevated PSA 2. 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 3. Cerebrovascular disease s/p L carotid endarterectomy [...] Urologist 18. Rosacea 19. Hypertension (SNOMED CT 99397251) 20. Spinal Stenosis * 21. Hyperlipidemia (SNOMED CT 39783847) 22. Osteoarthritis * 23. Lower Back Pain * 24. Vertigo 25. Diabetes mellitus type 2 (SNOMED CT 60538368) 26. Gastroesophageal Reflux Disorder SERVICE CONNECTED % [...] APPLY A THIN LAYER TOPICALLY TWICE ACTIVE (S) DAILY APPLY TO AFFECTED AREAS ON FACE TWICE DAILY FOR 4 WEEKS, THEN NEEDED Indication: RASH 7) KETOCONAZOLE 2% SHAMPOO SHAMPOO SMALL AMOUNT TOPICALLY TWICE ACTIVE (S) A WEEK NEEDED APPLY FOR 8 WEEKS, [...] 2 WEEKS Inactive Outpatient Medications Status 1) DENOSUMAB 60MG/ML INJ SYRINGE 1ML INJECT 60MG/1ML SUBCUTANEOUSLY ONE TIME Indication: FOR OSTEOPOROSIS Active Non-VA Medications Status 1) Non-VA ACETAMINOPHEN TAB BY MOUTH ONCE DAILY NEEDED ACTIVE 2) Non-VA AMLODIPINE BESYLATE 2.5MG TAB 2.5MG BY MOUTH ONCE ACTIVE DAILY 3) Non-VA ASPIRIN 81MG EC TAB 81MG BY MOUTH ONCE DAILY ACTIVE 4) Non-VA CYCLOBENZAPRINE HCL 10MG TAB 10MG BY MOUTH TWICE ACTIVE DAILY 5) Non-VA FUROSEMIDE 20MG TAB 20MG BY MOUTH ONCE DAILY ACTIVE 6) Non-VA LOSARTAN 100MG TAB 100MG BY MOUTH DAILY ACTIVE 7) Non-VA OMEPRAZOLE 20MG EC CAP 20MG BY MOUTH EVERY DAY ACTIVE 20 Total Medications 97.8 F [36.6 C] (06/17/2024 10:35) 63 (06/17/2024 10:35) 16 (06/17/2024 10:35) 126/74 (06/17/2024 10:35) 6 (06/17/2024 10:35) 64.5 in [163.8 cm] (06/17/2024 10:35) 166.3 lb [75.43 kg] (06/17/2024 10:35) BMI: 28.2 Neuro: Alert and oriented times three, grossly nonfocal, nasolabial folds intact. Thyroid nonpalpable. Cor: Regular rate and rhythm, normal s1 and 2 without Murmur, carotid bruits or pedal edema. Lungs; Clear to auscultation bilaterally. He is just barely unsteady standing up, but gait is normal. abdomen; normal bowel sounds, soft, nontender, no masses. ears.. Bilateral amps in place, 'from here' Canals are free of cerumen. Recent labs reviewed with patient today:yes. a/P: Diverticulitis, to ct today and added labs. Labyrinthitis, ENT consult. DM, I will ask Dr Melendez to consider an adjustmennt in his insulin pump, i.e. a reduction of a few units per day may by in order given overnight alarming once or twice a week. He will have recent outside notes and rxs send to me in order to facilitate getting all rXS here. /thomas/ Toño Peter PA-C STAFF PHYSICIAN TRANSCRIPT CLERK Signed: 06/17/2024 11:30 Receipt Acknowledged By: 06/17/2024 13:30 /thomas/ ENE MELENDEZ, PHARMD,BCPS CLINICAL PHARMACY PRACTITIONER 06/17/2024 ADDENDUM STATUS: COMPLETED Spoke to and relayed message per provider. understood and agreed to plan. He is in agreeable with consult to vascular, Would like [facility] if PCP advises. /thomas/ VIJAYA KENDALL, RN REGISTERED NURSE Signed: 06/17/2024 16:01 TOÑO PETER [facility] Jun 17, 2024 11:19 AM PHYSICIAN TRANSCRIPT CLERK NOTE: LOCAL TITLE: RUBY NOTE STANDARD TITLE: PHYSICIAN TRANSCRIPT CLERK NOTE DATE OF NOTE: JUN 17, 2024@11:19 ENTRY DATE: JUN 17, 2024@11:19:17 AUTHOR: TOÑO PETER COSIGNER: URGENCY: STATUS: COMPLETED RUBY NOTE Has ADDENDA CC/HPI/A/P: 84 year old MALE here in follow-up for; 84 yo male reports a few weeks of L>R mid abdominal pain,. Had one day of nonbloody diarrhea a week ago. PSH of Appy and Clau decades ago. Colonoscopy is up to date, routinely due next year. FH of colorectal cancer, HE has diverticulosis and well as hx of polyps and 'my of diverticulitis' so he is concerned. He adds that his glucometer wakes him up 'about once a week' with low sugars. Finally, he reports that his dysequilibrium has worsened this winter. He 'went down' going to the bathroom a few nights ago 'Didn't pass out;' didn't check his meter and we can't find the reading. Review of systems: Patient reports no changes from [facility], in meds or any admissions. Active problems - Computerized Problem List is the source for the followin. Elevated PSA 2. Aortic Valve Disorder (SCT 9334997) TAVR 10/03/2023 [facility]. 3. Cerebrovascular disease s/p L carotid endarterectomy [...] Urologist 18. Rosacea 19. Hypertension (SNOMED CT 99467296) 20. Spinal Stenosis * 21. Hyperlipidemia (SNOMED CT 98770691) 22. Osteoarthritis * 23. Lower Back Pain * 24. Vertigo 25. Diabetes mellitus type 2 (SNOMED CT 79993132) 26. Gastroesophageal Reflux Disorder SERVICE CONNECTED % [...] APPLY A THIN LAYER TOPICALLY TWICE ACTIVE (S) DAILY APPLY TO AFFECTED AREAS ON FACE TWICE DAILY FOR 4 WEEKS, THEN NEEDED Indication: RASH 7) KETOCONAZOLE 2% SHAMPOO SHAMPOO SMALL AMOUNT TOPICALLY TWICE ACTIVE (S) A WEEK NEEDED APPLY FOR 8 WEEKS, [...] 2 WEEKS Inactive Outpatient Medications Status 1) DENOSUMAB 60MG/ML INJ SYRINGE 1ML INJECT 60MG/1ML SUBCUTANEOUSLY ONE TIME Indication: FOR OSTEOPOROSIS Active Non-VA Medications Status 1) Non-VA ACETAMINOPHEN TAB BY MOUTH ONCE DAILY NEEDED ACTIVE 2) Non-VA AMLODIPINE BESYLATE 2.5MG TAB 2.5MG BY MOUTH ONCE ACTIVE DAILY 3) Non-VA ASPIRIN 81MG EC TAB 81MG BY MOUTH ONCE DAILY ACTIVE 4) Non-VA CYCLOBENZAPRINE HCL 10MG TAB 10MG BY MOUTH TWICE ACTIVE DAILY 5) Non-VA FUROSEMIDE 20MG TAB 20MG BY MOUTH ONCE DAILY ACTIVE 6) Non-VA LOSARTAN 100MG TAB 100MG BY MOUTH DAILY ACTIVE 7) Non-VA OMEPRAZOLE 20MG EC CAP 20MG BY MOUTH EVERY DAY ACTIVE 20 Total Medications 97.8 F [36.6 C] (06/17/2024 10:35) 63 (06/17/2024 10:35) 16 (06/17/2024 10:35) 126/74 (06/17/2024 10:35) 6 (06/17/2024 10:35) 64.5 in [163.8 cm] (06/17/2024 10:35) 166.3 lb [75.43 kg] (06/17/2024 10:35) BMI: 28.2 Neuro: Alert and oriented times three, grossly nonfocal, nasolabial folds intact. Thyroid nonpalpable. Cor: Regular rate and rhythm, normal s1 and 2 without Murmur, carotid bruits or pedal edema. Lungs; Clear to auscultation bilaterally. He is just barely unsteady standing up, but gait is normal. abdomen; normal bowel sounds, soft, nontender, no masses. ears.. Bilateral amps in place, 'from here' Canals are free of cerumen. Recent labs reviewed with patient today:yes. a/P: Diverticulitis, to ct today and added labs. Labyrinthitis, ENT consult. DM, I will ask Dr Melendez to consider an adjustmennt in his insulin pump, i.e. a reduction of a few units per day may by in order given overnight alarming once or twice a week. He will have recent outside notes and rxs send to me in order to facilitate getting all rXS here. /thomas/ Toño Peter PA-C STAFF PHYSICIAN TRANSCRIPT CLERK Signed: 06/17/2024 11:30 Receipt Acknowledged By: 06/17/2024 13:30 /thomas/ ENE MELENDEZ, PHARMD,[facility] CLINICAL PHARMACY PRACTITIONER 06/17/2024 ADDENDUM STATUS: COMPLETED Please inform him that CBC does not find anemia, some other labs are not yet back. CT does NOT find diverticulitis. A small hernia is found as well as narrowing in two arteries. I will enter a surgical consult to consider offering him hernia repair. He should consider a vascular consult for stening or other intervention. Please mail him a fit kit. Fax ct and six months of labs to Dr Tim Mckeon to consider vascular at [facility]. /thomas/ Toño Peter PA-C STAFF PHYSICIAN TRANSCRIPT CLERK Signed: 06/17/2024 13:51 Receipt Acknowledged By: * AWAITING SIGNATURE * VIJAYA KENDALL 06/17/2024 ADDENDUM STATUS: COMPLETED Spoke to [place] and relayed message per provider. [place] understood and agreed to plan. He is in agreeable with consult to vascular, Would like [facility] if PCP advises. /thomas/ VIJAYA KENDALL, BRYCE REGISTERED NURSE Signed: 06/17/2024 16:01 TOÑO PETER [facility] [place] [facility] Jun 17, 2024 10:41 AM PREVENTIVE MEDICINE NURSING NOTE: LOCAL TITLE: CLINICAL REMINDERS/NURSING STANDARD TITLE: PREVENTIVE MEDICINE NURSING NOTE DATE OF NOTE: JUN 17, 2024@10:41 ENTRY DATE: JUN 17, 2024@10:41:25 AUTHOR: MITUL BAUER COSIGNER: URGENCY: STATUS: COMPLETED Advance Directive Screen MH AD: Patient has an Advance Directive on file at this [facility]. No updates are needed at this time. The patient received education about Advance Directives and written notification of his/her rights. Comment: up to date Tobacco Use Screening: The patient is a former cigarette smoker. The patient has never used other types of tobacco. Alcohol Use Screen (AUDIT-C): Alcohol Screen: SCREEN FOR ALCOHOL (AUDIT-C) An alcohol screening test (AUDIT-C) was negative (score=0). 1. How often did you have a drink containing alcohol in the past year? Consider a drink to be a 12 ounce can or bottle of regular beer, 8 ounces of malt liquor, a 5 ounce glass of table wine, or a 1.5 ounce shot of liquor (like scotch, gin, or vodka). Never 2. How many drinks containing alcohol did you have on a typical day when you were drinking in the past year? Response not required due to responses to other questions. 3. How often did you have six or more drinks on one occasion in the past year? Response not required due to responses to other questions. /thomas/ MITUL BAUER LPN LPN Signed: 06/17/2024 10:43 [facility]
--- OUTSIDE RECORDS SUMMARY | 2024-10-01 11:26 | XMS_ITS | Encounter Summary ---
Author Name [facility] [place] [facility] [place] Address [address] [place] [id number] Care Team Providers Care Casting Assistant Name Role Phone TOÑO CAI Primary [...] O MEDEX BRONZ E Mar 19, 2004 [id number] [phone] HOLLIE SHEPHERD PATIENT [place] MED[place] SUPPLEMEN MASTER MEDEX BRONZ E Mar 19, 2004 [id number] [phone] HOLLIE SHEPHERD PATIENT [place] SUPPLEMEN MASTER MEDEX BRONZ E Mar 19, 2004 [id number] [phone] HOLLIE SHEPHERD PATIENT BCBS [facility] MEDICARE SUPPLEMEN MASTER PSUED O MEDEX BRONZ E Mar 19, 2004 [id number] HOLLIE SHEPHERD PATIENT MEDICARE (WNR) MEDICARE (M) PART B Mar 19, 2004 PART B [id number] [phone] CORA,HOLLIE ALD PATIENT MEDICARE (WNR) MEDICARE (M) PART B Mar 19, 2004 PART B [id number] CORAHOLLIE SILVA ALD PATIENT MEDICARE (WNR) MEDICARE (M) PART B Mar 19, 2004 PART B [id number] CORAHOLLIE SILVA ALD PATIENT MEDICARE (WNR) MEDICARE (M) PART A Feb 17, 2003 PART A [id number] CORAHOLLIE SILVA ALD PATIENT MEDICARE (WNR) MEDICARE (M) PART A Feb 17, 2003 PART A [id number] CORAHOLLIE SILVA ALD PATIENT MEDICARE (WNR) MEDICARE (M) PART A Feb 17, 2003 PART A [id number] HOLLIE SHEPHERD PATIENT MEDICARE (WNR) MEDICARE (M) PART A Feb 17, 2003 PART A [id number] HOLLIE SHEPHERD PATIENT MEDICARE (WNR) MEDICARE (M) PART B Feb 17, 2003 PART B [id number] HOLLIE SHEPHERD PATIENT MEDICARE (WNR) MEDICARE (M) PART A Feb 17, 2003 PART A [id number] HOLLIE SHEPHERD PATIENT MEDICARE (WNR) MEDICARE (M) PART B Feb 17, 2003 PART B [id number] [phone] HOLLIE SHEPHERD PATIENT Selected Encounter This section includes the information on record at [place] for the Encounter. Date/Time Encounter Type Encounter Description Reason Provider Source May 02, 2024 10:00 AM THERAPEUTIC EXERCISES PHYSICAL THERAPY ICD-10-CM M54.9 Dorsalgia, unspecified NAVJOT SOTO Mikey Encounter Template Text not used by [place] Assessments - Encounter Diagnoses This section includes the primary and secondary diagnoses documented for the Encounter. Date/Time Primary/Secondary Diagnosis Diagnosis Name Provider Source May 17, 2024 01:13 PM PRIMARY Dorsalgia, unspecified NAVJOT SOTO [place] [facility] Plan of Treatment: [...] REHAB MEDICIN E [facility] [place] [facility] May 29, 2024 11:30 AM AMBULATORY - MEDICINE [facility] [place] [facility] Jun 05, 2024 12:00 PM AMBULATORY [place] [facility] Jun 05, 2024 12:00 PM AMBULATORY - PSYCHIATRY [facility] [place] [facility] Jun 17, 2024 10:30 AM AMBULATORY - MEDICINE [facility] [place] [facility] Jun 17, 2024 10:31 AM AMBULATORY - MEDICINE [facility] [place] [facility] Jun 17, 2024 11:45 AM AMBULATORY - NONE [facility] [place] [facility] Jun 21, 2024 11:00 AM AMBULATORY - MEDICINE [place] [facility] [place] [facility] Jul 05, 2024 10:00 AM AMBULATORY - MEDICINE [facility] [place] [facility] Jul 10, 2024 08:00 AM AMBULATORY - MEDICINE [facility] [place] [facility] Jul 10, 2024 01:30 PM AMBULATORY - MEDICINE [facility] [place] [facility] Aug 01, 2024 11:00 AM AMBULATORY - MEDICINE [facility] [place] [facility] Aug 06, 2024 10:00 AM AMBULATORY - MEDICINE [facility] [place] [facility] Aug 16, 2024 02:00 PM AMBULATORY - MEDICINE [facility] [place] [facility] Aug 20, 2024 09:00 AM AMBULATORY - MEDICINE [facility] [place] [facility] Aug 22, 2024 11:00 AM AMBULATORY - MEDICINE [place] [facility] [place] [facility] Sep 27, 2024 11:00 AM AMBULATORY - PSYCHIATRY [facility] [place] [facility] Oct 03, 2024 02:00 PM AMBULATORY - MEDICINE [facility] [place] [facility] Oct 08, 2024 11:00 AM AMBULATORY - NONE [facility] Active, Pending, and Scheduled Orders This section includes a listing of several types of active, pending, and scheduled orders, including clinic medications orders, diagnostic test orders, procedure orders and consult orders; where the start date of the order is 45 days before the date of the Encounter or 45 days after the date of theEncounter. The data comes from all [place] treatment facilities. Test Date/Time Test Type Test Details Facility Name Jun 10, 2024 11:25 AM Consult Order [facility] Cons Inspector Watch Train's Choice [facility] Lab Results: +/- 30 days of [...] Unit Interpretation Reference Range Specimen Type Comment May 08, 2024 11:24 AM [facility] TESTOSTERONE, TOTAL (WHV) SERUM Specimen Type : SERUM No comment entered. Ordering Provider: SILVIA CAI Report Released Date/Time: Aug 11, 2023 11:52 AM Reporting [facility] [address] [address] Performing Lab: [address] [address] TESTOSTERONE, TOTAL (V) 44.33 ng/dL L 22 0.00-892.00 May 08, 2024 11:24 AM [facility] CBC BLOOD Specimen Type: BLOOD No comment entered. Ordering Provider: TOÑO CAI Report Released Date/Time: Aug 11, 2023 11:52 AM Reporting Lab: [facility] [address] [facility] [address] Performing Lab: [address] [address] WBC 4.08 10*3/uL L 4.50-11.00 RBC 4.53 10*6/uL 4.23-5.66 HGB 13.1 g/dL 12.8-17 HCT 39.9 39.2-50.4 MCV 88.1 fL 82-99 MCHC 32.8 g/dL 30.8-35.1 PLT 130 10*3/uL L 140-360 RDW-CV 14.5 12.0-16.0 MCH 28.9 pg 26.2-32.6 May 08, 2024 11:24 AM [facility] LIPID PANEL FASTING SERUM Specimen Type: SERU M No comment entered. Ordering Provider: TOÑO CAI Report Released Date/Time: Aug 11, 2023 11:52 AM Reporting Lab: [address] [address] Performing Lab: [address] [address] CHOLESTEROL 142 mg/dL TRIGLYCERIDE 179 mg/dL H 0-150 LDL calculated 64 mg/dL 0-129 CHOL/HDL 3.4 HDL CHOLESTEROL 42 mg/dL 40-60 May 08, 2024 11:24 AM [facility] BASIC METABOLIC PANEL (fasting) SERUM Specime n Type: SERUM No comment entered. Ordering Provider: TOÑO CAI Report Released Date/Time: Aug 11, 2023 11:52 AM Reporting Lab: [address] [address] Performing Lab: [address] [address] UREA NITROGEN 19 mg/dL 7-25 GLUCOSE 216 mg/dL H 65-100 SODIUM 142 mmol/L 135-145 POTASSIUM 3.5 mmol/L 3.5-5.0 CHLORIDE 107 mmol/L 100-110 CO2 25 meq/L 20-30 CREATININE, Serum 0.84 mg/dL 0.50-1.40 eGFR(CKD-EPI 2020) 85 mL/min >60 May 08, 2024 11:24 AM [facility] LIVER FUNCTION SERUM Specimen Type: SERUM No comment entered. Ordering Provider: VANWAGNER,TOÑO F Report Released Date/Time: Aug 11, 2023 11:52 AM Reporting Lab: [facility] [address] [facility] [address] Performing Lab: [address] [address] PROTEIN,TOTAL 5.5 g/dL L 6.0-8.3 ALBUMIN 3.6 g/dL 3.5-5.0 ALKALINE PHOSPHATASE 71 U/L 40-150 AST 20 U/L 5-34 ALT 24 U/L BILIRUBIN, TOTAL 1.1 mg/dL 0.2-1.2 May 08, 2024 11:24 AM [facility] CBC AND DIFF (AUTO) BLOOD Specimen Type: BLOO D No comment entered. Ordering Provider: TOÑO CAI Report Released Date/Time: Aug 11, 2023 11:52 AM Reporting Lab: [address] [address] Performing Lab: [facility] [address] [facility] [address] WBC 4.08 10*3/uL L 4.50-11.00 RBC 4.53 [...] 10*3/uL 0.00-0.00 May 08, 2024 11:23 AM [facility] OSMOLALITY (SERUM) SERUM Specimen Type: SERUM No comment entered. Ordering Provider: ALLIE CUELLO Report Released Date/Time: Nov 27, 2023 07:39 PM Reporting Lab: [facility] [address] [facility] [address] Performing Lab: [facility] [address] [facility] [address] OSMOLALITY (SERUM) 299 280-300 May 08, 2024 11:23 AM [facility] CALCIUM SERUM Specimen Type: SERUM Comment: *GLUCOSE Not Performed: May 08, 2024@11:36 by [id number] *LEAN PROCESS DEPLOYMENT CONSULTANT Reason: Duplicate *UREA NITROGEN Not Performed: May 08, 2024@11:36 by [id number] *LEAN PROCESS DEPLOYMENT CONSULTANT Reason: Duplicate *CREATININE (eGFR 2020) Not Performed: May 08, 2024@11:36 by [id number] *LEAN PROCESS DEPLOYMENT CONSULTANT Reason: Duplicate *SODIUM Not Performed: May 08, 2024@11:36 [place] [id number] *LEAN PROCESS DEPLOYMENT CONSULTANT Reason: Duplicate *CHLORIDE Not Performed: May 08, 2024@11:36 by [id number] *LEAN PROCESS DEPLOYMENT CONSULTANT Reason: Duplicate *CO2 Not Performed: May 08, 2024@11:36 by [id number] *LEAN PROCESS DEPLOYMENT CONSULTANT Reason: Duplicate *POTASSIUM Not Performed: May 08, 2024@11:36 by [id number] *LEAN PROCESS DEPLOYMENT CONSULTANT Reason: Duplicate Ordering Provider: ALLIE CUELLO Report Released Date/Time: Nov 27, 2023 07:39 PM Reporting Lab: [facility] [address] [facility] [address] Performing Lab: [facility] [address] [facility] [address] CALCIUM 8.5 mg/dL 8.5-10.2 May 08, 2024 11:23 AM [place] [facility] [place] [facility] VITAMIN D (25-OH) SERUM Specimen Type: SERUM No comment entered. Ordering Provider: ALLIE CUELLO Report Released Date/Time: Nov 27, 2023 07:39 PM Reporting Lab: [place] [facility] [place] [facility] [address] [facility] [facility] [address] Performing Lab: [place] [facility] [place] [facility] [address] [facility] [address] VITAMIN D (25-OH) 46 ng/mL 20-50 Social [...] took place. Date/Time Current Smoking Status Comment [facility] Jun 05, 2023 11:00 AM VA-TOBACCO FORMER USER [place] [facility] [place] [facility] Tobacco Use History This section includes a history of the smoking, or tobacco-related health factors, that were collected on or before the date of the Encounter. The data comes from the [place] facility where the Encounter took place. Date/Time Smoking Status/Tobac co Use Comment Facility Jun 05, 2023 11:00 AM VA-TOBACCO QUIT 15 YRS OR MORE [place] [facility] [place] [facility] Jun 06, 2022 01:00 PM VA-TOBACCO FORMER USER [place] [facility] [place] [facility] Jun 06, 2022 01:00 PM VA-TOBACCO QUIT 15 YRS OR MORE [facility] [place] [facility] Jun 30, 2021 02:37 PM VA-TOBACCO FORMER USER [facility] [place] [facility] Jun 30, 2021 02:37 PM VA-TOBACCO QUIT 5 TO < 15 YRS [facility] [place] [facility] May 22, 2020 03:30 PM VA-TOBACCO NEVER USED [place] [facility] [place] [facility] May 08, 2018 02:03 PM VA-TOBACCO FORMER USER [facility] [place] [facility] May 08, 2018 02:03 PM VA-TOBACCO QUIT 15 YRS OR MORE [facility] [place] [facility] November 10, 2017 02:33 PM QUIT TOBACCO USE > 7 YEARS AGO [facility] October 21, 2016 01:55 PM QUIT TOBACCO USE > 7 YEARS AGO [facility] Sep 18, 2015 11:24 AM QUIT TOBACCO USE > 7 YEARS AGO stopped 50 years ago [facility] May 19, 2005 08:01 AM HISTORY OF SMOKING [facility] May 31, 2004 01:02 PM HISTORY OF SMOKING [facility] Jun 04, 2003 07:57 AM HISTORY OF SMOKING [facility] Jun 03, 2002 01:11 PM HISTORY OF SMOKING [facility] Jun 03, 2002 01:11 PM QUIT TOBACCO USE > 7 YEARS AGO [facility] Advance Directives: All historical and current [...] Jun 02, 2023 ADVANCE DIRECTIVE JENNIFER QUIROS [facility] Radiology Reports: +/- 30 days of [...] the Encounter. The data comes from all [place] treatment facilities. Date/Time Radiology Report Provider Source Apr 02, 2024 02:24 PM SHOULDER,COMPLETE(RIGHT): BEBO SHEPHERD [id number] -[phone] M Exm Date: APR 02, 2024@14:24 Req Phys: TOÑO CAI Loc: CWM/NO/PACT 3 (Req'g Loc) Img Loc: [facility]/BUILDING 1 Service: Unknown [facility] [place], [place] [id number] (Case 50 COMPLETE) SHOULDER,COMPLETE(RIGHT) (RAD Detailed) CPT:07879 Reason for Study: lateral pain after a fall last week. Clinical History: Report Status: Verified Date Reported: APR 02, 2024 Date Verified: APR 02, 2024 Compliance Program Manager E-Sig:/ES/NAPOLEON ELLIOTT JR Report: Study: AP internally [...] Primary Interpreting Staff: NAPOLEON ELLIOTT JR, Radiologist (Compliance Program Manager) /NAPOLEON SCHMITZ JR [facility] Encounter Notes: All associated encounter notes [...] Mirtha REYES dr, switched medications, have to filler picker the new prescription still. Doing a [...] with HEP.) SELF CARE/EDUCATION: MINUTES: HEP:Access Code: [email or web address] URL: [email or web address] Date: 05/02/2024 Prepared by: Navjot Soto [...] PHYSICAL THERAPIST Signed: 05/03/2024 10:46 NAVJOT SOTO [place] [facility] [facility]
--- OUTSIDE RECORDS SUMMARY | 2024-10-01 11:26 | XMS_ITS ---
Author Name [facility] [place] Organization [facility] [place] [place] Address [address] [place] [id number] Care Team Providers Care Supervisor Steel Division Name Role Phone TOÑO CAI Primary Care [...] [place] MEDICARE SUPPLEMEN MASTER PSUED O MEDEX [facility] E Mar 19, 2004 [id number] [phone] HOLLIE SHEPHERD PATIENT [place] MED[place] SUPPLEMEN MASTER MEDEX [place] E Mar 19, 2004 [id number] [phone] HOLLIE SHEPHERD [place] SUPPLEMEN MASTER MEDEX [place] E Mar 19, 2004 [id number] [phone] HOLLIE SHEPHERD PATIENT BCBS [facility] MEDICARE SUPPLEMEN MASTER PSUED O MEDEX [place] E Mar 19, 2004 [id number] HOLLIE SHEPHERD PATIENT MEDICARE (WNR) MEDICARE (M) PART B Mar 19, 2004 PART B [id number] [phone] HOLLIE SHEPHERD PATIENT MEDICARE (WNR) MEDICARE (M) PART B Mar 19, 2004 PART B [id number] [phone] HOLLIE SHEPHERD PATIENT MEDICARE (WNR) MEDICARE (M) PART B Mar 19, 2004 PART B [id number] [phone] CORAHOLLIE SILVA ALD PATIENT MEDICARE (WNR) MEDICARE (M) PART A Feb 17, 2003 PART A [id number] [phone] CORAHOLLIE SILVA ALD PATIENT MEDICARE (WNR) MEDICARE (M) PART A Feb 17, 2003 PART A [id number] [phone] HOLLIE SHEPHERD PATIENT MEDICARE (WNR) MEDICARE (M) PART A Feb 17, 2003 PART A [id number] HOLLIE SHEPHERD PATIENT MEDICARE (WNR) MEDICARE (M) PART A Feb 17, 2003 PART A [id number] [phone] HOLLIE SHEPHERD PATIENT MEDICARE (WNR) MEDICARE (M) PART B Feb 17, 2003 PART B [id number] [phone] HOLLIE SHEPHERD PATIENT MEDICARE (WNR) MEDICARE (M) PART A Feb 17, 2003 PART A [id number] HOLLIE SHEPHERD PATIENT MEDICARE (WNR) MEDICARE (M) PART B Feb 17, 2003 PART B [id number] HOLLIE SHEPHERD PATIENT Selected Encounter This section includes the information on record at [place] for the Encounter. Date/Time Encounter Type Encounter Description Reason Provider Source May 29, 2024 11:30 AM OFFICE O/P EST MOD 30 MIN ENDOCRINOLOGY ICD-10-CM M81.0 Age-related osteoporosis w/o current pathological fracture ALLIE CUELLO Mikey Encounter Template Text not used by [place] Assessments - Encounter Diagnoses This section includes the primary and secondary diagnoses documented for the Encounter. Date/Time Primary/Secondary Diagnosis Diagnosis Name Provider Source Jun 10, 2024 12:50 PM PRIMARY Age-related osteoporosis w/o current pathological fracture [facility] [place] [facility] Jun 10, 2024 12:50 PM SECONDARY Testicular hypofunction ALLIE CUELLO [place] [facility] [place] [place] [facility] Plan of Treatment: Future Appointments (+ 6 months) and Future Tests (+/- 45 days) The Plan of Treatment section includes future care activities for the patient [facility] [place] [facility] This section includes future [...] 05, 2024 12:00 PM AMBULATORY - PS[place]CHIATRY [place] [facility] Jun 05, 2024 12:00 PM AMBULATORY - PSYCHIATRY [facility] [place] [facility] Jun 17, 2024 10:30 AM AMBULATORY - MEDICINE [facility] [place] [facility] Jun 17, 2024 10:31 AM AMBULATORY - MEDICINE [facility] [place] [facility] Jun 17, 2024 11:45 AM AMBULATORY - NONE [facility] [place] [facility] Jun 21, 2024 11:00 AM AMBULATORY - MEDICINE [facility] [place] [facility] Jul 05, 2024 10:00 AM AMBULATORY - MEDICINE [facility] [place] [facility] Jul 10, 2024 08:00 AM AMBULATORY - MEDICINE [facility] [place] [facility] Jul 10, 2024 01:30 PM AMBULATORY - MEDICINE [facility] [place] [facility] Aug 01, 2024 11:00 AM AMBULATORY - MEDICINE [facility] [place] [facility] Aug 06, 2024 10:00 AM AMBULATORY - MEDICINE [facility] [place] [facility] Aug 16, 2024 02:00 PM AMBULATORY - MEDICINE [facility] [place] [facility] Aug 20, 2024 09:00 AM AMBULATORY - MEDICINE [facility] [place] [facility] Aug 22, 2024 11:00 AM AMBULATORY - MEDICINE [facility] [place] [facility] Sep 27, 2024 11:00 AM AMBULATORY - PSYCHIATRY [facility] [place] [facility] Oct 03, 2024 02:00 PM AMBULATORY - MEDICINE [facility] [place] [facility] Oct 08, 2024 11:00 AM AMBULATORY - NONE [place] [facility] [place] [facility] November 15, 2024 11:00 AM AMBULATORY - MEDICINE [place] C [facility] [place] [facility] Nov 27, 2024 11:00 AM AMBULATORY - MEDICINE [facility] Active, Pending, and Scheduled Orders This section includes a listing of several types of active, pending, and scheduled orders, including clinic medications orders, diagnostic test orders, procedure orders and consult orders; where the start date of the order is 45 days before the date of the Encounter or 45 days after the date of theEncounter. The data comes from all [place] treatment facilities. Test Date/Time Test Type Test Details Facility Name Jun 10, 2024 11:25 AM Consult Order COMMUNITY CARE-UROLOGY Cons Escalator Installer's Choice [place] [facility] Jun 17, 2024 12:00 AM Laboratory - Chemi stry Order IRON & TIBC PANEL BLOOD ([facility]) [facility] [place] [facility] Jun 17, 2024 12:00 AM Laboratory - Chemi stry Order FERRITIN BLOOD (SST-SERUM) [facility] [place] [facility] Jul 05, 2024 09:52 AM Consult Order COMMUNITY CARE-RHEUMATOLOGY Cons Escalator Installer's [facility] Lab Results: +/- 30 days of the encounter This section includes the Chemistry and Hematology Lab Results on record with [place] for the patient. Radiology Reports and Pathology Reports are provided separately, in subsequent sections. Lab Results This section contains the Chemistry/Hematology Results that were resulted 30 days before or 30 daysafter the date of the Encounter. Date/Time Source Result Type Result - Unit Interpretation Reference Range Specimen Type Comment Jun 17, 2024 12:15 PM [facility] FERRITIN SERUM Specimen Type: SERUM No comment entered. Ordering Provider: SILVIA CAI Report Released Date/Time: Jun 17, 2024 11:07 AM Reporting Lab: [address] [address] Performing Lab: [address] [address] FERRITIN 37 ng/mL 20-300 Jun 17, 2024 12:15 PM [facility] IRON & TIBC PANEL SERUM Specimen Type: SERUM No comment entered. Ordering Provider: TOÑO CAI Report Released Date/Time: Jun 17, 2024 11:07 AM Reporting Lab: [facility] [address] [address] Performing Lab: [address] [address] TIBC 374 ug/dL 204-475 IRON 172 ug/dL H 40-160 Transferrin Saturation 46.0 20.0-50.0 Transferrin (TRF) 283 mg/dL 200-360 Jun 17, 2024 12:15 PM [facility] CBC AND DIFF (AUTO) BLOOD Specimen Type: BLOO D No comment entered. Ordering Provider: TOÑO CAI Report Released Date/Time: Jun 17, 2024 11:07 AM Reporting Lab: [address] [address] Performing Lab: [address] [address] WBC 4.91 10*3/uL 4.50-11.00 RBC 4.38 10*6/uL [...] 10*3/uL 0.00-0.00 Jun 04, 2024 10:27 AM [facility] HEMOGLOBIN A1C PANEL BLOOD Specimen Type: BLO OD Comment: Values obtained from A1C measurements can vary. For atypical A1C assays, a reported value of 7.0 could actually be between 6.72 and 7.28 if measured by a reference method. A reported value of 9.0 could actually be between 8.73 and 9.27. Ref: http://www.ngsp.org/CAPdata.asp Ordering Provider: TOÑO CAI Report Released Date/Time: May 29, 2024 06:36 PM Reporting Lab: [address] [address] Performing Lab: [address] [address] HEMOGLOBIN A1C 6.5 H 4.0-5.6 Jun 04, 2024 10:27 AM [facility] MICROALBUMIN CREATININE RATIO PANEL URINE Spe cimen Type: URINE No comment entered. Ordering Provider: TOÑO CAI Report Released Date/Time: May 29, 2024 06:36 PM Reporting Lab: [facility] [address] [address] Performing Lab: [address] [address] MICROALBUMIN/CREATININE RATIO 36.0 mg/g H 0-29.9 MICROALBUMIN,QUANTITATIVE 2.8 mg/dL RR U NAVAIL CREATININE URINE 77.84 mg/dL Jun 04, 2024 10:27 AM [facility] TSH SERUM Specimen Type: SERUM No comment entered. Ordering Provider: TOÑO CAI Report Released Date/Time: May 29, 2024 06:36 PM Reporting Lab: [address] [address] Performing Lab: [address] [address] TSH 1.78 u[IU]/mL 0.35-5.00 Jun 04, 2024 10:27 AM [facility] BASIC METABOLIC PANEL (non-fasting) SERUM Spe cimen Type: SERUM No comment entered. Ordering Provider: TOOÑ CAI Report Released Date/Time: May 29, 2024 06:36 PM Reporting Lab: [address] [address] Performing Lab: [address] [address] UREA NITROGEN 19 mg/dL 7-25 GLUCOSE 187 mg/dL H 65-100 SODIUM 140 mmol/L 135-145 POTASSIUM 3.8 mmol/L 3.5-5.0 CHLORIDE 103 mmol/L 100-110 CO2 25 meq/L 20-30 CREATININE, Serum 0.97 mg/dL 0.50-1.40 eGFR(CKD-EPI 2020) 76 mL/min >60 Jun 04, 2024 10:27 AM [facility] LIVER FUNCTION SERUM Specimen Type: SERUM No comment entered. Ordering Provider: TOÑO CAI Report Released Date/Time: May 29, 2024 06:36 PM Reporting Lab: [address] [address] Performing Lab: [address] [address] PROTEIN,TOTAL 5.5 g/dL L 6.0-8.3 ALBUMIN 3.7 g/dL 3.5-5.0 ALKALINE PHOSPHATASE 78 U/L 40-150 AST 20 U/L 5-34 ALT 19 U/L BILIRUBIN, TOTAL 1.3 mg/dL H 0.2-1.2 BILIRUBIN, DIRECT 0.5 mg/dL 0-0.5 Jun 04, 2024 10:27 AM [facility] LIPID PANEL, NON FASTING SERUM Specimen Type: SERUM No comment entered. Ordering Provider: TOÑO CAI Report Released Date/Time: May 29, 2024 06:36 PM Reporting Lab: [facility] [address] [address] Performing Lab: [address] [address] CHOLESTEROL 151 mg/dL TRIGLYCERIDE 146 mg/dL 0-150 LDL calculated 73 mg/dL 0-129 CHOL/HDL 3.1 HDL CHOLESTEROL 49 mg/dL 40-60 May 08, 2024 11:24 AM [facility] TESTOSTERONE, TOTAL (WHV) SERUM Specimen Type : SERUM No comment entered. Ordering Provider: TOÑO CAI Report Released Date/Time: Aug 11, 2023 11:52 AM Reporting Lab: [address] [address] Performing Lab: [address] [address] TESTOSTERONE, TOTAL (WHV) 44.33 ng/dL L 22 0.00-892.00 May 08, 2024 11:24 AM [facility] LIVER FUNCTION SERUM Specimen Type: SERUM No comment entered. Ordering Provider: TOÑO CIA Report Released Date/Time: Aug 11, 2023 11:52 AM Reporting Lab: [address] [address] Performing Lab: [address] [address] PROTEIN,TOTAL 5.5 g/dL L 6.0-8.3 ALBUMIN 3.6 g/dL 3.5-5.0 ALKALINE PHOSPHATASE 71 U/L 40-150 AST 20 U/L 5-34 ALT 24 U/L BILIRUBIN, TOTAL 1.1 mg/dL 0.2-1.2 May 08, 2024 11:24 AM [facility] BASIC METABOLIC PANEL (fasting) SERUM Specime n Type: SERUM No comment entered. Ordering Provider: TOÑO CAI Report Released Date/Time: Aug 11, 2023 11:52 AM Reporting [facility]: [facility] [address] [address] Performing Lab: [facility] [address] [address] UREA NITROGEN 19 mg/dL 7-25 GLUCOSE 216 mg/dL H 65-100 SODIUM 142 mmol/L 135-145 POTASSIUM 3.5 mmol/L 3.5-5.0 CHLORIDE 107 mmol/L 100-110 CO2 25 meq/L 20-30 CREATININE, Serum 0.84 mg/dL 0.50-1.40 eGFR(CKD-EPI 2020) 85 mL/min >60 May 08, 2024 11:24 AM [facility] CBC BLOOD Specimen Type: BLOOD No comment entered. Ordering Provider: TOÑO CAI Report Released Date/Time: Aug 11, 2023 11:52 AM Reporting Lab: [facility] [address] [address] Performing Lab: [address] [address] WBC 4.08 10*3/uL L 4.50-11.00 RBC 4.53 10*6/uL 4.23-5.66 HGB 13.1 g/dL 12.8-17 HCT 39.9 39.2-50.4 MCV 88.1 fL 82-99 MCHC 32.8 g/dL 30.8-35.1 PLT 130 10*3/uL L 140-360 RDW-CV 14.5 12.0-16.0 MCH 28.9 pg 26.2-32.6 May 08, 2024 11:24 AM [facility] LIPID PANEL FASTING SERUM Specimen Type: SERU M No comment entered. Ordering Provider: TOÑO CAI Report Released Date/Time: Aug 11, 2023 11:52 AM Reporting Lab: [address] [address] Performing Lab: [address] [address] CHOLESTEROL 142 mg/dL TRIGLYCERIDE 179 mg/dL H 0-150 LDL calculated 64 mg/dL 0-129 CHOL/HDL 3.4 HDL CHOLESTEROL 42 mg/dL 40-60 May 08, 2024 11:24 AM [facility] CBC AND DIFF (AUTO) BLOOD Specimen Type: BLOO D No comment entered. Ordering Provider: TOÑO CAI Report Released Date/Time: Aug 11, 2023 11:52 AM Reporting Lab: [facility] [address] [address] Performing Lab: [facility] [address] [address] WBC 4.08 10*3/uL L 4.50-11.00 RBC 4.53 [...] 10*3/uL 0.00-0.00 May 08, 2024 11:23 AM [facility] [place] [facility] OSMOLALITY (SERUM) SERUM Specimen Type: SERUM No comment entered. Ordering Provider: ALLIE CUELLO Report Released Date/Time: Nov 27, 2023 07:39 PM Reporting Lab: [place] [facility] [place] [facility] [address] [address] Performing Lab: [facility] [place] [facility] [address] [facility] [address] OSMOLALITY (SERUM) 299 280-300 May 08, 2024 11:23 AM [facility] [place] [facility] CALCIUM SERUM Specimen Type: SERUM Comment: *GLUCOSE Not Performed: May 08, 2024@11:36 by [id number] *TUFTING SUPERVISOR Reason: Duplicate *UREA NITROGEN Not Performed: May 08, 2024@11:36 by [id number] *TUFTING SUPERVISOR Reason: Duplicate *CREATININE (eGFR 2020) Not Performed: May 08, 2024@11:36 by [id number] *TUFTING SUPERVISOR Reason: Duplicate *SODIUM Not Performed: May 08, 2024@11:36 by [id number] *TUFTING SUPERVISOR Reason: Duplicate *CHLORIDE Not Performed: May 08, 2024@11:36 by [id number] *TUFTING SUPERVISOR Reason: Duplicate *CO2 Not Performed: May 08, 2024@11:36 by [id number] *TUFTING SUPERVISOR Reason: Duplicate *POTASSIUM Not Performed: May 08, 2024@11:36 by [id number] *TUFTING SUPERVISOR Reason: Duplicate Ordering Provider: ALLIE CUELLO Report Released Date/Time: Nov 27, 2023 07:39 PM Reporting Lab: [facility] [place] [facility] [address] [address] Performing Lab: [facility] [place] [facility] [address] [address] CALCIUM 8.5 mg/dL 8.5-10.2 May 08, 2024 11:23 AM [facility] [place] [facility] VITAMIN D (25-OH) SERUM Specimen Type: SERUM No comment entered. Ordering Provider: ALLIE CUELLO Report Released Date/Time: Nov 27, 2023 07:39 PM Reporting Lab: [facility] [place] [facility] [address] [address] Performing Lab: [facility] [place] [facility] [address] [address] VITAMIN D (25-OH) 46 ng/mL 20-50 Vital Signs: All taken on the encounter date This section contains inpatient and outpatient Vital Signs collected on the date of the Encounter. Date/Time Temperature Pulse Blood Pressure Respiratory Rate SP02 Pain Height Weight Body Mass Index Source May 29, 2024 11:19 AM 98.1 68 108/55 16 94 5 64.5 173 29 [place] [facility] [place] [facility] Social History: Smoking Status (Most current) and Tobacco Use (All prior to encounter date) This section includes the most current, and the historical, smoking and tobacco- related health factors from the [place] facility where the Encounter took place. Current Smoking Status This section includes the most current smoking, or tobacco-related health factor, from the [place] facility where the Encounter took place. Date/Time Current Smoking Status Comment [facility] Jun 05, 2023 11:00 AM VA-TOBACCO FORMER USER [place] [facility] [place] [facility] Tobacco Use History This section includes a history of the smoking, or tobacco-related health factors, that were collected on or before the date of the Encounter. The data comes from the [place] facility where the Encounter took place. Date/Time Smoking Status/Tobac co Use Comment Facility Jun 05, 2023 11:00 AM VA-TOBACCO QUIT 15 YRS OR MORE [place] [facility] [place] [facility] Jun 06, 2022 01:00 PM VA-TOBACCO FORMER USER [facility] [place] [facility] Jun 06, 2022 01:00 PM VA-TOBACCO QUIT 15 YRS OR MORE [facility] [place] [facility] Jun 30, 2021 02:37 PM VA-TOBACCO FORMER USER [facility] [place] [facility] Jun 30, 2021 02:37 PM VA-TOBACCO QUIT 5 TO < 15 YRS [facility] [place] [facility] May 22, 2020 03:30 PM VA-TOBACCO NEVER USED [facility] [place] [facility] May 08, 2018 02:03 PM VA-TOBACCO FORMER USER [facility] [place] [facility] May 08, 2018 02:03 PM VA-TOBACCO QUIT 15 YRS OR MORE [place] [facility] [place] [facility] November 10, 2017 02:33 PM QUIT TOBACCO USE > 7 YEARS AGO [facility] October 21, 2016 01:55 PM QUIT TOBACCO USE > 7 YEARS AGO [facility] Sep 18, 2015 11:24 AM QUIT TOBACCO USE > 7 YEARS AGO stopped 50 years ago [facility] May 19, 2005 08:01 AM H[facility] SMO[facility] May 31, 2004 01:02 PM HISTORY [facility]MO[facility] Jun 04, 2003 07:57 AM [facility]MO[facility] Jun 03, 2002 01:11 PM [facility]MO[facility] Jun 03, 2002 01:11 PM QUIT TOBACCO USE > 7 YEARS AGO [facility] Advance Directives: All historical and current Section Date Range: From patient's date of to the date document was created. This section includes ALL of a patient's completed or amended [place] Advance and Rescinded Directives. The entries below indicate that a directive exists for the patient, but an actual copy is not included with this document. The data comes from all [place] facilities. Date Advance Directives Provider Source Jun 02, 2023 ADVANCE DIRECTIVE JENNIFER QUIROS [facility] Radiology Reports: +/- 30 days of [...] ABDOMEN AND PELVIS WITH CONTRAST: BEBO SHEPHERD [id number] -[id number] M Exm Date: JUN 17, 2024@11:32 Req Phys: TOÑO CAI Loc: [facility] PACT 3 PA (Req'g Loc) Img Loc: NHM/CT Service: Unknown [place] [facility] [place] [facility] [place] [address] THIS IS AN AMENDED REPORT (Case [id number] COMPLETE) CT ABDOMEN AND PELVIS WITH CONTRA(CT Detailed) CPT:05702 Contrast Media : Non-ionic Iodinated Reason for [...] 23, 2024 Date Verified: AUG 23, 2024 Certified Anesthesiologist Assistant E-Sig:/ES/NAPOLEON ELLIOTT JR Report: Exam: CT of [...] NAPOLEON ELLIOTT JR, Radiologist /NAPOLEON SCHMITZ JR [facility] Encounter Notes: [...] CC: Osteoporosis, hypogonadism HPI: 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 No falls or fractures. Calcium [...] Elevated PSA 2. Aortic Valve Disorder (SCT 8408046) 3. Cerebrovascular disease 4. Chronic recurrent major depressive disorder 5. Insulin pump present 6. Hypertension 7. Family history of cancer of colon 8. Testicular hypofunction 9. Osteoporosis 10. Major depressive disorder 11. RA - Rheumatoid arthritis 12. History of colonic polyp 13. Diverticular disease of colon 14. Adjustment disorder 15. Hemorrhoids 16. Polymyalgia Rheumatica 17. Microscopic Hematuria 18. Rosacea 19. Hypertension (SNOMED CT 70614325) 20. Spinal Stenosis * 21. Hyperlipidemia (SNOMED CT 61042002) 22. Osteoarthritis * 23. Lower Back Pain * 24. Vertigo 25. Diabetes mellitus type 2 (SNOMED CT 62486843) 26. Gastroesophageal Reflux Disorder Active Outpatient Medications [...] of active outpatient prescriptions dispensed from this [place] (local) and dispensed from another [place] or [facility] facility (remote) as well as inpatient orders [...] Remote Allergy/ADR Data available for this patient [facility] [place] [facility] [place] [facility]EN[facility]IN [facility] [place] [facility] ZOSYN Med Recon NoGlossary (Tool #1) INCLUDED IN THIS LIST: Alphabetical list of active outpatient prescriptions dispensed from this [place] (local) and dispensed from another [place] or [facility] facility (remote) as well as inpatient orders (local pending and active), local clinic medications, locally documented non-VA medications, and local prescriptions that have or been discontinued in the past 90 days. Non-VA Meds Last Documented On: Oct 09, 2023 NOTE The display of VA prescriptions dispensed from another [place] or [facility] facility (remote) is limited to active outpatient prescription entries matched to National Drug File at the originating site and may not include some items such as investigational drugs, compounds, etc. NOT INCLUDED IN THIS LIST: Medications self-entered by the patient into personal health records (i.e. [employer]) are NOT included in this list. Non-VA medications documented outside this [place], remote inpatient orders (regardless of status) and [...] ONE-HALF TABLET BY MOUTH ONCE DAILY Rx# [id number] Last Released: 04/03/24 Qty/Days Supply: Rx Expiration Date: 02/27/25 Refills Remainin Indication: FOR HIGH CHOLESTEROL OUTPT CALCIUM 200MG (CA CITRATE-950MG) TAB (Status = Active) TAKE FOUR TABLETS BY MOUTH TWICE DAILY Rx# [id number] Last Released: 05/08/24 Qty/Days Supply: Rx Expiration Date: 11/27/24 Refills Remainin Indication: FOR OSTEOPOROSIS Non-VA CHOLECALCIF 50MCG (D3-2,000UNIT) TAB TAKE ONE TABLET BY MOUTH ONCE DAILY Aug 11, 2020 Non-VA medication not recommended by VA provider. OUTPT CITALOPRAM HYDROBROMIDE 10MG TAB (Status = Active) TAKE ONE-HALF TABLET BY MOUTH ONCE DAILY FOR DEPRESSION AND ANXIETY Rx# [id number] Last Released: 05/28/24 Qty/Days Supply: Rx Expiration Date: 02/28/25 Refills Remainin Indication: FOR MAJOR DEPRESSIVE DISORDER Non-VA CYCLOBENZAPRINE HCL 10MG TAB TAKE ONE TABLET BY MOUTH TWICE DAILY OUTPT DENOSUMAB 60MG/ML INJ SYRINGE 1ML (Status = Active) INJECT 60MG/1ML SUBCUTANEOUSLY ONE TIME FOR OSTEOPOROSIS Rx# [id number] Last Released: 05/07/24 Qty/Days Supply: 07/18 Rx Expiration Date: 05/30/24 Refills Remainin Indication: FOR OSTEOPOROSIS Non-VA DOCUSATE NA 100MG CAP TAKE 1 CAPSULE BY MOUTH TWICE DAILY Non-VA FUROSEMIDE 20MG TAB TAKE ONE TABLET BY MOUTH ONCE DAILY OUTPT GLUCOSE 4GM CHEW TAB (Status = Active) CHEW ONE TABLET BY MOUTH EVERY DAY NEEDED FOR LOW BLOOD SUGAR Rx# [id number] Last Released: 04/08/24 Qty/Days Supply: Rx Expiration Date: 04/03/25 Refills Remainin Indication: FOR LOW BLOOD SUGAR OUTPT HYDROXYCHLOROQUINE SULFATE 200MG TAB (Status = Active) TAKE TWO TABLETS BY MOUTH ONCE DAILY 5 DAYS A WEEK, AND 1 TABLET DAILY 2 DAYS A WEEK. Rx# [id number] Last Released: 05/23/24 Qty/Days Supply: Rx Expiration Date: 08/19/24 Refills Remainin OUTPT INSULIN,ASPART,HUMAN 100 UNIT/ML INJ (Status = ) INJECT 80 UNITS SUBCUTANEOUSLY EVERY DAY DIRECTED FOR USE WITH CONTINUOUS SUBCUTANEOUS INSULIN INFUSION DEVICE Rx# [id number] Last Released: 01/24/24 Qty/Days Supply: Rx Expiration Date: 04/17/24 Refills Remainin OUTPT KETOCONAZOLE 2% CREAM (Status = Active) APPLY A THIN LAYER TOPICALLY TWICE DAILY RASH APPLY TO AFFECTED AREAS ON FACE TWICE DAILY FOR 4 WEEKS, THEN NEEDED Rx# [id number] Last Released: 07/21/23 Qty/Days Supply: 120/30 Rx Expiration Date: 07/13/24 Refills Remainin Indication: RASH OUTPT KETOCONAZOLE 2% SHAMPOO (Status = Active) SHAMPOO SMALL AMOUNT TOPICALLY TWICE A WEEK NEEDED APPLY FOR 8 WEEKS, THEN NEEDED Rx# [id number] Last Released: 07/21/23 Qty/Days Supply: 240/30 Rx Expiration Date: 07/13/24 Refills Remainin Indication: SCALP RASH OUTPT LEFLUNOMIDE 10MG TAB (Status = Discontinued) TAKE ONE TABLET BY MOUTH ONCE DAILY FOR 14 DAYS, THEN TAKE TWO TABLETS ONCE DAILY Rx# [id number] Last Released: 03/26/24 Qty/Days Supply: 6030 Rx Expiration Date: 03/26/25 Refills Remainin OUTPT LEFLUNOMIDE 20MG TAB (Status = Active) TAKE ONE TABLET BY MOUTH ONCE DAILY Rx# [id number] Last Released: 05/02/24 Qty/Days Supply: 90/90 Rx Expiration Date: 07/29/24 Refills Remainin Non-VA LOSARTAN 100MG TAB TAKE ONE TABLET BY MOUTH DAILY OUTPT MULTIVIT/OPHTH AREDS2/LUTE/ZEAX CAP/TAB (Status = Discontinued) TAKE 1 CAPSULE BY MOUTH TWICE DAILY IN THE MORNING AND EVENING, WITH FOOD Rx# [id number] Last Released: 02/26/24 Qty/Days Supply: 120/60 Rx Expiration Date: 03/29/24 Refills Remainin OUTPT MULTIVIT/OPHTH AREDS2/LUTE/ZEAX CAP/TAB (Status = Active) TAKE 1 CAPSULE BY MOUTH TWICE DAILY IN THE MORNING AND EVENING, WITH FOOD Rx# [id number] Last Released: 05/02/24 Qty/Days Supply: 120/60 Rx Expiration Date: 04/30/25 Refills Remainin Non-VA OMEPRAZOLE 20MG EC CAP TAKE 1 CAPSULE BY MOUTH EVERY DAY OUTPT OXYCODONE HCL 5MG TAB NOT SA (Status = ) TAKE ONE TABLET BY MOUTH EVERY 6 HOURS NEEDED FOR SEVERE PAIN Rx# [id number] Last Released: 02/21/24 Qty/Days Supply: 16/4 Rx Expiration Date: 03/19/24 Refills Remainin Non-VA PILOCARPINE HCL 5MG TAB TAKE ONE TABLET BY MOUTH TWICE DAILY Dec 04, 2020 Non-VA medication not recommended by [facility] provider. OUTPT PREDNISONE 10MG TAB (Status = Discontinued) TAKE ONE TABLET BY MOUTH ONCE DAILY Rx# [id number] Last Released: 04/18/24 Qty/Days Supply: Rx Expiration Date: 07/09/24 Refills Remainin OUTPT PREDNISONE 1MG TAB (Status = Discontinued) TAKE FOUR TABLETS BY MOUTH ONCE DAILY Rx# [id number] Last Released: 12/29/23 Qty/Days Supply: 12030 Rx Expiration Date: 10/16/24 Refills Remainin OUTPT PREDNISONE 1MG TAB (Status = Discontinued) TAKE FOUR TABLETS BY MOUTH ONCE DAILY Rx# [id number] Last Released: 03/01/24 Qty/Days Supply: 120 Rx Expiration Date: 02/26/25 Refills Remainin OUTPT PREDNISONE 2.5MG TAB (Status = Active) TAKE THREE TABLETS BY MOUTH ONCE DAILY Rx# [id number] Last Released: 05/28/24 Qty/Days Supply: Rx Expiration Date: 04/30/25 Refills Remainin OUTPT TAMSULOSIN HCL 0.4MG CAP (Status = Active/Suspended) TAKE TWO CAPSULES BY MOUTH AT BEDTIME Rx# [id number] Last Released: 04/27/24 Qty/Days Supply: 180 Rx Expiration Date: 01/22/25 Refills Remainin OUTPT TOCILIZUMAB 162MG/0.9ML INJ SYR 0.9ML (Status = Discontinued) INJECT 162MG SUBCUTANEOUSLY EVERY 2 WEEKS Rx# [id number] Last Released: 03/14/24 Qty/Days Supply: 08/16 Rx Expiration Date: 11/17/24 Refills Remainin OUTPT TOCILIZUMAB 162MG/0.9ML INJ SYR 0.9ML (Status = Active) INJECT 162MG SUBCUTANEOUSLY EVERY 2 WEEKS Rx# [id number] Last Released: 05/09/24 Qty/Days Supply: 08/16 Rx Expiration Date: 04/12/25 Refills Remainin SUPPLIES OUTPT NEEDLE 18G 1IN (Status = ) USE 1 NEEDLE EVERY 7 DAYS FOR INJECTION Rx# [id number] Last Released: 07/21/23 Qty/Days Supply: Rx Expiration Date: 04/27/24 Refills Remainin OUTPT NEEDLE 23G 1IN (Status = ) USE 1 NEEDLE EVERY 7 DAYS FOR INJECTION Rx# [id number] Last Released: 07/20/23 Qty/Days Supply: Rx Expiration Date: 04/27/24 Refills Remainin OUTPT SYRINGE 1ML LUER LOCK TIP (Status = ) USE 1 SYRINGE EVERY 7 DAYS Rx# [id number] Last Released: 07/13/23 Qty/Days Supply: Rx Expiration Date: 04/27/24 Refills RemaininYony ramirez/ ALLIE CUELLO MD STAFF PHYSICIAN Signed: 05/29/2024 11:31 ALLIE CUELLO [facility]TRL [facility] [place] [facility]
--- OUTSIDE RECORDS SUMMARY | 2024-10-01 11:26 | XMS_ITS | Encounter Summary ---
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 Name Role Phone TOÑO PETER Primary Care [...] PR MEDICARE SUPPLEMEN MASTER PSUED O MEDEX BRON E Mar 19, 2004 [id number] HOLLIE SHEPHERD PATIENT [place] MED[place] SUPPLEMEN MASTER MEDEX BRONZ E Mar 19, 2004 [id number] HOLLIE SHEPHERD PATIENT [place] SUPPLEMEN MASTER MEDEX BRONZ E Mar 19, 2004 [id number] HOLLIE SHEPHERD PATIENT BCBS [facility] MEDICARE SUPPLEMEN MASTER PSUED O MEDEX BRONZ E Mar 19, 2004 [id number] HOLLIE SHEPHERD PATIENT MEDICARE (WNR) MEDICARE (M) PART B Mar 19, 2004 PART B [id number] HOLLIE SHEPHERD PATIENT MEDICARE (WNR) MEDICARE (M) PART B Mar 19, 2004 PART B [id number] HOLLIE SHEPHERD PATIENT MEDICARE (WNR) MEDICARE (M) PART B Mar 19, 2004 PART B [id number] [phone] HOLLIE SHEPHERD ALD PATIENT MEDICARE (WNR) MEDICARE (M) PART A Feb 17, 2003 PART A [id number] HOLLIE SHEPHERD ALD PATIENT MEDICARE (WNR) MEDICARE (M) PART A Feb 17, 2003 PART A [id number] [phone] HOLLIE SHEPHERD ALD PATIENT MEDICARE (WNR) MEDICARE (M) PART A Feb 17, 2003 PART A [id number] HOLLIE SHEPHERD PATIENT MEDICARE (WNR) MEDICARE (M) PART A Feb 17, 2003 PART A [id number] HOLLIE SHEPHERD PATIENT MEDICARE (WNR) MEDICARE (M) PART B Feb 17, 2003 PART B [id number] [phone] HOLLIE SHEPHERD PATIENT MEDICARE (WNR) MEDICARE (M) PART A Feb 17, 2003 PART A [id number] HOLLIE SHEPHERD PATIENT MEDICARE (WNR) MEDICARE (M) PART B Feb 17, 2003 PART B [id number] HOLLIE SHEPHERD PATIENT Selected Encounter This section includes the information on record at [place] for the [place]counter. Date/Time Encounter Type Encounter Description Reason Pro vider Source May 29, 2024 01:51 PM Outpatient Encounter ADMIN PAT ACTIVTIES (MASNONCT) IHE Encounter Template Text not used by [place] Plan of Treatment: Future Appointments (+ 6 months) and Future Tests (+/- 45 days) The Plan of Treatment section includes future care activities for the patient from all [place] treatmentfacilities. This section includes future appointments and future orders which are active, pending or scheduled. Future Appointments This section includes appointments that were scheduled to occur 6 months from the date of the Encounter, up to a maximum of 20 appointments. The data comes from all [place] treatment facilities. Appointment Date/Time Appointment Type Appointme nt Facility Name Jun 05, 2024 12:00 PM AMBULATORY [place] [place] [facility] Jun 05, 2024 12:00 PM AMBULAT[facility] [place] [facility] [place] [facility] Jun 17, 2024 10:30 AM AMBULATORY - MEDICINE [facility] [place] [facility] Jun 17, 2024 10:31 AM AMBULATORY - MEDICINE [facility] [place] [facility] Jun 17, 2024 11:45 AM AMBULATORY - NONE [facility] [place] [facility] Jun 21, 2024 11:00 AM AMBULATORY - MEDICINE [facility] [place] [facility] Jul 05, 2024 10:00 AM AMBULATORY [facility] MEDICINE [facility] [place] [facility] Jul 10, 2024 08:00 AM AMBULATORY - MEDICINE [facility] [place] [facility] Jul 10, 2024 01:30 PM AMBULATORY - MEDICINE [facility] [place] [facility] Aug 01, 2024 11:00 AM AMBULATORY - MEDICINE [facility] [place] [facility] Aug 06, 2024 10:00 AM AMBULATORY - MEDICINE [facility] [place] [facility] Aug 16, 2024 02:00 PM AMBULATORY - MEDICINE [facility] [place] [facility] Aug 20, 2024 09:00 AM AMBULATORY - MEDICINE [facility] [place] [facility] Aug 22, 2024 11:00 AM AMBULATORY - MEDICINE [facility] [place] [facility] Sep 27, 2024 11:00 AM AMBULATORY - PS[facility]CHIATRY [facility] [place] [facility] Oct 03, 2024 02:00 PM AMBULATORY - MEDICINE [facility] [place] [facility] Oct 08, 2024 11:00 AM AMBULATORY - NONE [facility] [place] [facility] November 15, 2024 11:00 AM AMBULATORY - MEDICINE [facility] [place] [facility] Nov 27, 2024 11:00 AM AMBULATORY - MEDICINE [facility] [place] [facility] Active, Pending, and Scheduled Orders This section includes a listing of several types of active, pending, and scheduled orders, including clinic medications orders, diagnostic test orders, procedure orders and consult orders; where the start date of the order is 45 days before the date of the Encounter or 45 days after the date of theEncounter. The data comes from all [place] treatment facilities. Test Date/Time Test Type Test Details Facility Name Jun 10, 2024 11:25 AM Consult Order COMMUNITY CARE-UROLOGY Cons Institutional Custodian's Choice [place] [facility] [facility] Jun 17, 2024 12:00 AM Laboratory - Chemi stry Order FERRITIN BLOOD (SST-SERUM) SP [place] [facility] [place] [facility] Jun 17, 2024 12:00 AM Laboratory - Chemi stry Order IRON & TIBC PANEL BLOOD (SST-SERUM) SP [place] [facility] [place] [facility] Jul 05, 2024 09:52 AM Consult Order COMMUNITY CARE-RHEUMATOLOGY Cons Institutional Custodian's Choice [place] [facility] [place] [facility] Lab Results: +/- 30 days of [...] Type Comment Jun 17, 2024 12:15 PM [facility] FERRITIN SERUM Specimen Type: SERUM No comment entered. Ordering Provider: SILVIA PETER Report Released Date/Time: Jun 17, 2024 11:07 AM Reporting Lab: [facility] [place] [address] [address] Performing Lab: [place] [facility] [facility] [address] [facility] [address] FERRITIN 37 ng/mL 20-300 Jun 17, 2024 12:15 PM [facility] [place] [facility] IRON & TIBC PANEL SERUM Specimen Type: SERUM No comment entered. Ordering Provider: TOÑO PETER Report Released Date/Time: Jun 17, 2024 11:07 AM Reporting Lab: [place] [facility] [place] [facility] [address] [facility] [address] Performing Lab: [facility] [place] [address] [address] TIBC 374 ug/dL 204-475 IRON 172 ug/dL H 40-160 Transferrin Saturation 46.0 20.0-50.0 Transferrin (TRF) 283 mg/dL 200-360 Jun 17, 2024 12:15 PM [facility] CBC AND DIFF (AUTO) BLOOD Specimen Type: BLOO D No comment entered. Ordering Provider: TOÑO PETER Report Released Date/Time: Jun 17, 2024 11:07 AM Reporting Lab: [facility] [address] [facility] [address] Performing Lab: [facility] [address] [facility] [address] WBC 4.91 10*3/uL 4.50-11.00 RBC 4.38 10*6/uL [...] 10*3/uL 0.00-0.00 Jun 04, 2024 10:27 AM [facility] HEMOGLOBIN A1C PANEL BLOOD Specimen Type: BLO [...] May 29, 2024 06:36 PM Reporting Lab: [address] [address] Performing Lab: [address] [address] HEMOGLOBIN A1C 6.5 H 4.0-5.6 Jun 04, 2024 10:27 AM [facility] MICROALBUMIN CREATININE RATIO PANEL URINE Spe cimen Type: URINE No comment entered. Ordering Provider: TOÑO PETER Report Released Date/Time: May 29, 2024 06:36 PM Reporting Lab: [address] [address] Performing Lab: [address] [address] MICROALBUMIN/CREATININE RATIO 36.0 mg/g H 0-29.9 MICROALBUMIN,QUANTITATIVE 2.8 mg/dL RR U NAVAIL CREATININE URINE 77.84 mg/dL Jun 04, 2024 10:27 AM [facility] BASIC METABOLIC PANEL (non-fasting) SERUM Spe cimen Type: SERUM No comment entered. Ordering Provider: TOÑO PETER Report Released Date/Time: May 29, 2024 06:36 PM Reporting Lab: [address] [address] Performing Lab: [address] [address] UREA NITROGEN 19 mg/dL 7-25 GLUCOSE 187 mg/dL H 65-100 SODIUM 140 mmol/L 135-145 POTASSIUM 3.8 mmol/L 3.5-5.0 CHLORIDE 103 mmol/L 100-110 CO2 25 meq/L 20-30 CREATININE, Serum 0.97 mg/dL 0.50-1.40 eGFR(CKD-EPI 2020) 76 mL/min >60 Jun 04, 2024 10:27 AM [facility] LIPID PANEL, NON FASTING SERUM Specimen Type: SERUM No comment entered. Ordering Provider: TOÑO PETER Report Released Date/Time: May 29, 2024 06:36 PM Reporting Lab: [facility] [address] [facility] [address] Performing Lab: [address] [address] CHOLESTEROL 151 mg/dL TRIGLYCERIDE 146 mg/dL 0-150 LDL calculated 73 mg/dL 0-129 CHOL/HDL 3.1 HDL CHOLESTEROL 49 mg/dL 40-60 Jun 04, 2024 10:27 AM [facility] TSH SERUM Specimen Type: SERUM No comment entered. Ordering Provider: TOÑO PETER Report Released Date/Time: May 29, 2024 06:36 PM Reporting Lab: [facility] [address] [facility] [address] Performing Lab: [address] [address] TSH 1.78 u[IU]/mL 0.35-5.00 Jun 04, 2024 10:27 AM [facility] LIVER FUNCTION SERUM Specimen Type: SERUM No comment entered. Ordering Provider: TOÑO PETER Report Released Date/Time: May 29, 2024 06:36 PM Reporting Lab: [facility] [address] [facility] [address] Performing Lab: [address] [address] PROTEIN,TOTAL 5.5 g/dL L 6.0-8.3 ALBUMIN 3.7 g/dL 3.5-5.0 ALKALINE PHOSPHATASE 78 U/L 40-150 AST 20 U/L 5-34 ALT 19 U/L BILIRUBIN, TOTAL 1.3 mg/dL H 0.2-1.2 BILIRUBIN, DIRECT 0.5 mg/dL 0-0.5 May 08, 2024 11:24 AM [facility] TESTOSTERONE, TOTAL (WHV) SERUM Specimen Type : SERUM No comment entered. Ordering Provider: TOÑO PETER Report Released Date/Time: Aug 11, 2023 11:52 AM Reporting Lab: [address] [address] Performing Lab: [address] [address] TESTOSTERONE, TOTAL (V) 44.33 ng/dL L 22 0.00-892.00 May 08, 2024 11:24 AM [facility] LIVER FUNCTION SERUM Specimen Type: SERUM No comment entered. Ordering Provider: TOÑO PETER Report Released Date/Time: Aug 11, 2023 11:52 AM Reporting Lab: [address] [address] Performing Lab: [address] [address] PROTEIN,TOTAL 5.5 g/dL L 6.0-8.3 ALBUMIN 3.6 g/dL 3.5-5.0 ALKALINE PHOSPHATASE 71 U/L 40-150 AST 20 U/L 5-34 ALT 24 U/L BILIRUBIN, TOTAL 1.1 mg/dL 0.2-1.2 May 08, 2024 11:24 AM [facility] CBC BLOOD Specimen Type: BLOOD No comment entered. Ordering Provider: TOÑO PETER Report Released Date/Time: Aug 11, 2023 11:52 AM Reporting Lab: [address] [address] Performing Lab: [address] [address] WBC 4.08 10*3/uL L 4.50-11.00 RBC 4.53 10*6/uL 4.23-5.66 HGB 13.1 g/dL 12.8-17 HCT 39.9 39.2-50.4 MCV 88.1 fL 82-99 MCHC 32.8 g/dL 30.8-35.1 PLT 130 10*3/uL L 140-360 RDW-CV 14.5 12.0-16.0 MCH 28.9 pg 26.2-32.6 May 08, 2024 11:24 AM [facility] BASIC METABOLIC PANEL (fasting) SERUM Specime n Type: SERUM No comment entered. Ordering Provider: TOÑO PETER Report Released Date/Time: Aug 11, 2023 11:52 AM Reporting Lab: [address] [address] Performing Lab: [address] [address] UREA NITROGEN 19 mg/dL 7-25 GLUCOSE 216 mg/dL H 65-100 SODIUM 142 mmol/L 135-145 POTASSIUM 3.5 mmol/L 3.5-5.0 CHLORIDE 107 mmol/L 100-110 CO2 25 meq/L 20-30 CREATININE, Serum 0.84 mg/dL 0.50-1.40 eGFR(CKD-EPI 2020) 85 mL/min >60 May 08, 2024 11:24 AM [facility] LIPID PANEL FASTING SERUM Specimen Type: SERU M No comment entered. Ordering Provider: TOÑO PETER Report Released Date/Time: Aug 11, 2023 11:52 AM Reporting Lab: [address] [address] Performing Lab: [address] [address] CHOLESTEROL 142 mg/dL TRIGLYCERIDE 179 mg/dL H 0-150 LDL calculated 64 mg/dL 0-129 CHOL/HDL 3.4 HDL CHOLESTEROL 42 mg/dL 40-60 May 08, 2024 11:24 AM [facility] CBC AND DIFF (AUTO) BLOOD Specimen Type: BLOO D No comment entered. Ordering Provider: TOÑO PETER Report Released Date/Time: Aug 11, 2023 11:52 AM Reporting Lab: [facility] [address] [facility] [address] Performing Lab: [facility] [address] [facility] [address] WBC 4.08 10*3/uL L 4.50-11.00 RBC 4.53 [...] 10*3/uL 0.00-0.00 May 08, 2024 11:23 AM [facility] OSMOLALITY (SERUM) SERUM Specimen Type: SERUM No comment entered. Ordering Provider: ALLIE CUELLO Report Released Date/Time: Nov 27, 2023 07:39 PM Reporting Lab: [facility] [address] [facility] [address] Performing Lab: [facility] [address] [facility] [address] OSMOLALITY (SERUM) 299 280-300 May 08, 2024 11:23 AM [facility] HalldisN AttenderUSEHealthLoop [facility] CALCIUM SERUM Specimen Type: SERUM Comment: *GLUCOSE Not Performed: May 08, 2024@11:36 by [id number] *CLOTH PRINTER HELPER Reason: Duplicate *UREA NITROGEN Not Performed: May 08, 2024@11:36 by [id number] *CLOTH PRINTER HELPER Reason: Duplicate *CREATININE (eGFR 2020) Not Performed: May 08, 2024@11:36 by [id number] *CLOTH PRINTER HELPER Reason: Duplicate *SODIUM Not Performed: May 08, 2024@11:36 by [id number] *CLOTH PRINTER HELPER Reason: Duplicate *CHLORIDE Not Performed: May 08, 2024@11:36 by [id number] *CLOTH PRINTER HELPER Reason: Duplicate *CO2 Not Performed: May 08, 2024@11:36 by [id number] *CLOTH PRINTER HELPER Reason: Duplicate *POTASSIUM Not Performed: May 08, 2024@11:36 by [id number] *CLOTH PRINTER HELPER Reason: Duplicate Ordering Provider: ALLIE CUELLO Report Released Date/Time: Nov 27, 2023 07:39 PM Reporting Lab: [facility]isN Att[facility] [address] [facility] [address] Performing Lab: [facility] HalldisN Att[facility] [address] [facility] [address] CALCIUM 8.5 mg/dL 8.5-10.2 May 08, 2024 11:23 AM [facility] AttenderUSEHealthLoop [facility] VITAMIN D (25-OH) SERUM Specimen Type: SERUM No comment entered. Ordering Provider: ALLIE CUELLO Report Released Date/Time: Nov 27, 2023 07:39 PM Reporting Lab: [place] [facility] Att[facility] [address] [facility] [address] Performing Lab: [facility] HalldisN Attender[facility]HealthLoop [facility] [address] [facility] [address] VITAMIN D (25-OH) 46 ng/mL 20-50 Vital Signs: All taken on the encounter date This section contains inpatient and outpatient Vital Signs collected on the date of the Encounter. Date/Time Temperature Pulse Blood Pressure Respiratory Rate SP02 Pain Height Weight Body Mass Index Source May 29, 2024 11:19 AM 98.1 68 108/55 16 94 5 64.5 173 29 [facility] [place] [facility] Social History: Smoking Status (Most current) and Tobacco Use (All prior to encounter date) This section includes the most current, and the historical, smoking and tobacco- related health factors from the [place] facility where the Encounter took place. Current Smoking Status This section includes the most current smoking, or tobacco-related health factor, from the [place] facility where the Encounter took place. Date/Time Current Smoking Status Comment [facility] Jun 05, 2023 11:00 AM VA-TOBACCO FORMER USER [place] [facility] [place] [facility] Tobacco Use History This section includes a history of the smoking, or tobacco-related health factors, that were collected on or before the date of the Encounter. The data comes from the [place] facility where the Encounter took place. Date/Time Smoking Status/Tobac co Use Comment Facility Jun 05, 2023 11:00 AM VA-TOBACCO QUIT 15 YRS OR MORE [place] [facility] [place] [facility] Jun 06, 2022 01:00 PM VA-TOBACCO FORMER USER [place] [facility] [place] [facility] Jun 06, 2022 01:00 PM VA-TOBACCO QUIT 15 YRS OR MORE [facility] [place] [facility] Jun 30, 2021 02:37 PM VA-TOBACCO FORMER USER [place] [facility] [facility] Jun 30, 2021 02:37 PM VA-TOBACCO QUIT 5 TO < 15 YRS [place] [facility] [place] [facility] May 22, 2020 03:30 PM VA-TOBACCO NEVER USED [place] [facility] [facility] May 08, 2018 02:03 PM VA-TOBACCO FORMER USER [place] [facility] [place] [facility] May 08, 2018 02:03 PM VA-TOBACCO QUIT 15 YRS OR MORE [facility] [place] [facility] November 10, 2017 02:33 PM QUIT TOBACCO USE > 7 YEARS AGO [facility] [place] [facility] October 21, 2016 01:55 PM QUIT TOBACCO USE > 7 YEARS AGO [facility] [place] [facility] Sep 18, 2015 11:24 AM QUIT TOBACCO USE > 7 YEARS AGO stopped 50 years ago [facility] [place] [facility] May 19, 2005 08:01 AM HISTORY OF SMOKING [facility] [place] [facility] May 31, 2004 01:02 PM HISTORY OF SMOKING [facility] Jun 04, 2003 07:57 AM HISTORY OF SMOKING [facility] Jun 03, 2002 01:11 PM HISTORY OF SMOKING [facility] Jun 03, 2002 01:11 PM QUIT TOBACCO USE > 7 YEARS AGO [facility] Advance Directives: All historical and current Section Date Range: From patient's date of to the date document was created. This section includes ALL of a patient's completed or amended [place] Advance and Rescinded Directives. The entries below indicate that a directive exists for the patient, but an actual copy is not included with this document. The data comes from all [place] facilities. Date Advance Directives Provider Source Jun 02, 2023 ADVANCE DIRECTIVE MARYANNEJENNIFER CARNES Garcia [facility] Radiology Reports: +/- 30 days of [...] the Encounter. The data comes from all [place] treatment facilities. Date/Time Radiology Report Provider Source Jun 17, 2024 11:[address] ABDOMEN AND PELVIS WITH CONTRAST: BEBO SHEPHERD [id number] -[id number] M Ex Date: JUN 17, 2024@11:32 Req Phys: TOÑO PETER Loc: [facility] PACT 3 PA (Req'g Loc) Img Loc: [facility]/CT Service: Unknown [facility] [place] [id number] THIS IS AN AMENDED REPORT (Case [id number] COMPLETE) CT ABDOMEN AND PELVIS WITH CONTRA(CT Detailed) CPT:59513 Contrast Media : Non-ionic Iodinated Reason for [...] 23, 2024 Date Verified: AUG 23, 2024 Education Coordinator E-Sig:/ES/NAPOLEON ELLIOTT JR Report: Exam: CT of [...] Physician VERIFIED BY: NAPOLEON ELLIOTT JR, Radiologist /EANAPOLEON LUTHER JR [facility] Encounter Notes: All associated encounter notes This [...] agrees to [place] care [place] as [place] get the [place] . He will have DR Murry's office send one year of labs and most recent note. I messaged with DR Cuello who asks me to enter a DM consult. Please ask him in for labs this or next week and he should expect a booking call on this consult. /thomas/ Toño Peter PA-C STAFF PHYSICIAN SENIOR UI UX DEVELOPER Signed: 05/29/2024 18:35 Receipt Acknowledged By: 05/30/2024 11:19 /thomas/ VIJAYA KENDALL, BRYCE REGISTERED NURSE 06/04/2024 08:19 /thomas/ ENE MELENDEZ, PHARMD,BCPS CLINICAL PHARMACY PRACTITIONER ====== --- Original Document --- 05/29/24 MEDICATION RENEWAL: Lillian zapata have a requesting medication renewal for mailing please please renew if appropriate Active Outpatient Medications (including Supplies): Active Outpatient Medications Status ====== 1) 7 [id number] INSULIN,ASPART,HUMAN 100 UNIT/ML INJ 8 E> 1015 0 90 /thomas/ DEVIN WOODARD DELIVERY ASSISTANT Signed: 05/29/2024 13:51 Receipt Acknowledged By: 05/29/2024 15:02 /thomas/ ALLIE CUELLO MD STAFF PHYSICIAN 05/29/2024 ADDENDUM STATUS: COMPLETED Pt followed by non [place] endocrinology for DM. Referring back to PCP. I recommend that pt request this medication from non [place] endocrine, so that provider managing the insulin is the provider ordering it. /thomas/ ALLIE CUELLO MD STAFF PHYSICIAN Signed: 05/29/2024 15:04 Receipt Acknowledged By: 05/29/2024 19:04 /thomas/ Toño Peter PA-C STAFF PHYSICIAN SENIOR UI UX DEVELOPER 05/30/2024 ADDENDUM STATUS: COMPLETED Unable to reach Emmons at listed number [phone]. Left VM on self-identified mailbox with call back number. /thomas/ VIJAYA KENDALL RN REGISTERED NURSE Signed: 05/30/2024 11:19 06/04/2024 ADDENDUM STATUS: UNSIGNED You may not VIEW this UNSIGNED Addendum. TOÑO PETER [place] [facility] [place] [facility] May 29, 2024 03:02 PM ADDENDUM: LOCAL TITLE: Addendum STANDARD TITLE: ADDENDUM DATE OF NOTE: MAY 29, 2024@15:02:25 ENTRY DATE: MAY 29, 2024@15:02:26 AUTHOR: ALLIE CUELLO COSIGNER: URGENCY: STATUS: COMPLETED Pt followed [place] endocr[place]ology for DM. Referring back to PCP. I recommend that pt request this medication from non [place], so that provider managing the insulin is the provider ordering it. /benny CUELLO MD STAFF PHYSICIAN Signed: 05/29/2024 15:04 Receipt Acknowledged By: 05/29/2024 19:04 /thomas/ Toño Peter PA-C STAFF PHYSICIAN SENIOR UI UX DEVELOPER ====== --- Original Document --- 05/29/24 MEDICATION RENEWAL: Lillian zapata have a requesting medication renewal for mailing please please renew if appropriate Active Outpatient Medications (including Supplies): Active Outpatient Medications Status ====== 1) 7 [id number] INSULIN,ASPART,HUMAN 100 UNIT/ML INJ 8 E> 1030 08-15 0 90 /thomas/ DEVIN WOODARD DELIVERY ASSISTANT Signed: 05/29/2024 13:51 Receipt Acknowledged By: 05/29/2024 15:02 /thomas/ ALLIE CUELLO MD STAFF PHYSICIAN 05/29/2024 ADDENDUM STATUS: COMPLETED I called and discussed the risks of shared care with him. He agrees to ALL endocrine care [place] as [place] get [place] . He will have DR Murry's office send one year of labs and most recent note. I messaged with DR Cuello who asks me to enter a DM consult. Please ask him in for labs this or next week and he should expect a booking call on this consult. /thomas/ Toño Peter PA-C STAFF PHYSICIAN SENIOR UI UX DEVELOPER Signed: 05/29/2024 18:35 Receipt Acknowledged By: * AWAITING SIGNATURE * VIJAYA KENDALL ALICE [facility] [place] [facility] May 29, 2024 01:51 PM MEDICATION [...] Active Outpatient Medications Status ====== 1) 7 [id number] INSULIN,ASPART,HUMAN 100 UNIT/ML INJ 8 E> 10-30 08-15 0 90 /thomas/ DEVIN WOODARD DELIVERY ASSISTANT Signed: 05/29/2024 13:51 Receipt Acknowledged By: 05/29/2024 15:02 /benny CUELLO MD STAFF PHYSICIAN 05/29/2024 ADDENDUM STATUS: COMPLETED Pt followed by non [place] endocrinology for DM. Referring back to PCP. I recommend that pt request this medication from non [place] endocrine, so that provider managing the insulin is the provider ordering it. /benny CUELLO MD STAFF PHYSICIAN Signed: 05/29/2024 15:04 Receipt Acknowledged By: 05/29/2024 19:04 /thomas/ Toño Peter PA-C STAFF PHYSICIAN SENIOR UI UX DEVELOPER 05/29/2024 ADDENDUM STATUS: COMPLETED I called and discussed the risks of shared care with him. He agrees to ALL endocrine care here at [place] as I want to get the insulin at [place] . He will have DR Murry's office send one year of labs and most recent note. I messaged with DR Cuello who asks me to enter a DM consult. Please ask him in for labs this or next week and he should expect a booking call on this consult. /benny Peter PA-C STAFF PHYSICIAN SENIOR UI UX DEVELOPER Signed: 05/29/2024 18:35 Receipt Acknowledged By: 05/30/2024 11:19 /es/ VIJAYA KENDALL RN REGISTERED NURSE 06/04/2024 08:19 /thomas/ ENE MELENDEZ PHARMD,[facility] CLINICAL PHARMACY PRACTITIONER 05/30/2024 ADDENDUM STATUS: COMPLETED Unable to reach [place] at listed number [phone]. Left VM on self-identified mailbox with call back number. /benny KENDALL RN REGISTERED NURSE Signed: 05/30/2024 11:19 06/04/2024 ADDENDUM STATUS: COMPLETED Agree with endo consult as pt is currently on a insulin pump. /benny MELENDEZ PHARMD,BCPS CLINICAL PHARMACY PRACTITIONER Signed: 06/04/2024 08:20 DEVIN WOODARD [place] [facility]ENTER[facility]ENTER[facility]ISAB[facility]
--- OUTSIDE RECORDS SUMMARY | 2024-10-01 11:26 | XMS_ITS ---
Author Name [facility] [place] Organization [facility] [place] [place] Address [address] [place] [address] Care Team Providers Care Comprehensive Advisor Name Role Phone TOÑO CAI Primary Care [...] [place] MEDICARE SUPPLEMEN MASTER PSUED O MEDEX [facility] E Mar 19, 2004 [id number] HOLLIE SHEPHERD PATIENT [place] SUPPLEMEN MASTER MEDEX [facility] E Mar 19, 2004 [id number] [phone] HOLLIE SHEPHERD PAT[place] SUPPLEMEN MASTER MEDEX [facility] E Mar 19, 2004 [id number] [phone] HOLLIE SHEPHERD PATIENT BCBS [facility] MEDICARE SUPPLEMEN MASTER PSUED O MEDEX BRONZ E Mar 19, 2004 [id number] [phone] HOLLIE SHEPHERD PATIENT MEDICARE (WNR) MEDICARE (M) PART B Mar 19, 2004 PART B [id number] [phone] HOLLIE SHEPHERD PATIENT MEDICARE (WNR) MEDICARE (M) PART B Mar 19, 2004 PART B [id number] HOLLIE SHEPHERD PATIENT MEDICARE (WNR) MEDICARE (M) PART B Mar 19, 2004 PART B [id number] [phone] CORAHOLLIE SILVA ALD PATIENT MEDICARE (WNR) MEDICARE (M) PART A Feb 17, 2003 PART A [id number] [phone] CORAHOLLIE SILVA ALD PATIENT MEDICARE (WNR) MEDICARE (M) PART A Feb 17, 2003 PART A [id number] CORAHOLLIE SILVA PATIENT MEDICARE (WNR) MEDICARE (M) PART A Feb 17, 2003 PART A [id number] HOLLIE SHEPHERD PATIENT MEDICARE (WNR) MEDICARE (M) PART A Feb 17, 2003 PART A [id number] [phone] CORAHOLLIE SILVA PATIENT MEDICARE (WNR) MEDICARE (M) PART B Feb 17, 2003 PART B [id number] [phone] HOLLIE SHEPHERD PATIENT MEDICARE (WNR) MEDICARE (M) PART A Feb 17, 2003 PART A [id number] [phone] HOLLIE SHEPHERD PATIENT MEDICARE (WNR) MEDICARE (M) PART B Feb 17, 2003 PART B [id number] HOLLIE SHEPHERD PATIENT Selected Encounter This section includes the information on record at [place] for the Encounter. Date/Time Encounter Type Encounter Description Reason Provider Source Aug 22, 2024 11:00 AM OFFICE O/P EST MOD 30 MIN ENDOCRINOLOGY ICD-10-CM Z96.41 Presence of insulin pump (external) (internal) ALLIE CUELLO Mikey Encounter Template Text not used by [place] Assessments - Encounter Diagnoses This section includes the primary and secondary diagnoses documented for the Encounter. Date/Time Primary/Secondary Diagnosis Diagnosis Name Provider Source Sep 03, 2024 11:32 AM PRIMARY Presence of insulin pump (external) (internal) ALLIE CUELLO [facility] [place] [facility] Sep 03, 2024 11:32 AM SECONDARY Age-related osteoporosis w/o current pathological fracture [facility] Sep 03, 2024 11:32 AM SECONDARY Essential (primary) hypertension [facility] Sep 03, 2024 11:32 AM SECONDARY Hyperlipidemia, unspecified [facility]IE [facility] Sep 03, 2024 11:32 AM SECONDARY Type 2 diabetes mellitus with unspecified complications DERBY LINEALLIE [facility] Plan of Treatment: Future Appointments (+ 6 months) and Future Tests (+/- 45 days) The Plan of Treatment section includes future care activities for the patient [facility] This section includes future appointments and future orders which are active, pending or scheduled. Future Appointments This section includes appointments that were scheduled to occur 6 months from the date of the Encounter, up to a maximum of 20 appointments. The data comes from all [facility]. Appointment Date/Time Appointment Type Appointme nt Facility Name Sep 27, 2024 11:00 AM AMBULATORY - [facility]CHIATRY [facility] Oct 03, 2024 02:00 PM AMBULATORY - MEDICINE [facility] Oct 08, 2024 11:00 AM AM[facility] NONE [facility] November 15, 2024 11:00 AM AMBULATORY - MEDICINE [place] [facility] [place] [facility] Nov 27, 2024 11:00 AM [facility] Active, Pending, and Scheduled Orders This section includes a listing of several types of active, pending, and scheduled orders, including clinic medications orders, diagnostic test orders, procedure orders and consult orders; where the start date of the order is 45 days before the date of the Encounter or 45 days after the date of theEncounter. The data comes from all [facility] facilities. Test Date/Time Test Type Test Details Facility Name Aug 22, 2024 12:00 AM Laboratory - Chemi stry Order CALCI[facility] B[facility]UM[facility] Aug 22, 2024 12:00 AM Laboratory - Chemi stry Order C-PEPTIDE (q) BLOOD (SST-SERUM) SP [facility] Lab Results: +/- 30 days [...] Unit Interpretation Reference Range Specimen Type Comment Aug 07, 2024 07:58 AM [facility] FERRITIN SERUM Specimen Type: SERUM No comment entered. Ordering Provider: SILVIA ACI Report Released Date/Time: Jul 24, 2024 11:22 AM Reporting Lab: [address] [address] Performing Lab: [address] [address] FERRITIN 69 ng/mL 20-300 Aug 07, 2024 07:58 AM [facility] IRON & TIBC PANEL SERUM Specimen Type: SERUM No comment entered. Ordering Provider: TOÑO CAI Report Released Date/Time: Jul 24, 2024 11:22 AM Reporting Lab: [address] [address] Performing Lab: [address] [address] TIBC 350 ug/dL 204-475 IRON 53 ug/dL 40-160 Transferrin Saturation 15.2 L 20.0-50.0 Transferrin (TRF) 265 mg/dL 200-360 Aug 07, 2024 07:58 AM [facility] LIVER FUNCTION SERUM Specimen Type: SERUM No comment entered. Ordering Provider: TOÑO CAI Report Released Date/Time: Jul 24, 2024 11:22 AM Reporting Lab: [address] [address] Performing Lab: [address] [address] PROTEIN,TOTAL 5.5 g/dL L 6.0-8.3 ALBUMIN 3.5 g/dL 3.5-5.0 ALKALINE PHOSPHATASE 82 U/L 40-150 AST 25 U/L 5-34 ALT 27 U/L BILIRUBIN, TOTAL 0.7 mg/dL 0.2-1.2 Aug 07, 2024 07:58 AM [facility] BASIC METABOLIC PANEL (fasting) SERUM Specime n Type: SERUM No comment entered. Ordering Provider: TOÑO CAI Report Released Date/Time: Jul 24, 2024 11:22 AM Reporting Lab: [facility] [address] [facility] [address] Performing Lab: [address] [address] UREA NITROGEN 18 mg/dL 7-25 GLUCOSE 150 mg/dL H 65-100 SODIUM 143 mmol/L 135-145 POTASSIUM 3.4 mmol/L L 3.5-5.0 CHLORIDE 106 mmol/L 100-110 CO2 26 meq/L 20-30 CALCIUM 9.1 mg/dL 8.5-10.2 CREATININE, Serum 0.75 mg/dL 0.50-1.40 eGFR(CKD-EPI 2020) 87 mL/min >60 Aug 07, 2024 07:58 AM [facility] CBC AND DIFF (AUTO) BLOOD Specimen Type: BLOO D No comment entered. Ordering Provider: TOÑO CAI Report Released Date/Time: Jul 24, 2024 11:22 AM Reporting Lab: [facility] [address] [facility] [address] Performing Lab: [address] [address] WBC 3.96 10*3/uL L 4.50-11.00 RBC 4.18 10*6/uL L 4.23-5.66 HGB 12.7 g/dL L 12.8-17 HCT 38.5 L 39.2-50.4 MCV 92.1 fL 82-99 MCHC 33.0 g/dL 30.8-35.1 PLT 121 10*3/uL L 140-360 RDW-CV 13.5 12.0-16.0 MONO, ABS 0.71 10*3/uL 0.30-1.10 MCH 30.4 pg 26.2-32.6 NEUT % 48.7 43.7-75.8 LYMPH % 25.3 14.0-42.3 MONO % 17.9 H 5.1-13.7 EOS % 5.8 0.4-6.8 BASO % 1.8 0.1-2.0 NEUT, ABS 1.93 10*3/uL L 2.20-7.60 LYMPH, ABS 1.00 10*3/uL 1.00-3.20 EOS, ABS 0.23 10*3/uL 0.03-0.44 BASO, ABS 0.07 10*3/uL 0.01-0.13 IMMATURE GRAN % 0.5 0.0-0.7 IMMATURE GRAN, ABS 0.02 10*3/uL 0.00-0.0 6 NRBC % 0.0 0.0-0.0 NRBC, ABS 0.00 10*3/uL 0.00-0.00 Aug 07, 2024 07:58 AM [facility] OSMOLALITY (SERUM) SERUM Specimen Type: SERUM Comment: Manually entered by: RTO Ordering Provider: ALLIE CUELLO Report Released Date/Time: Jul 24, 2024 02:18 PM Reporting Lab: [facility] [address] [facility] [address] Performing Lab: [facility] [address] [facility] [address] OSMOLALITY (SERUM) 305 H 280-300 Aug 07, 2024 07:58 AM [facility] VITAMIN D (25-OH) SERUM Specimen Type: SERUM No comment entered. Ordering Provider: ALLIE CUELLO Report Released Date/Time: Jul 24, 2024 02:18 PM Reporting Lab: [facility] [address] [facility] [address] Performing Lab: [address] [address] VITAMIN D (25-OH) 41 ng/mL 20-50 Aug 07, 2024 07:58 AM [facility] BASIC METABOLIC PANEL (non-fasting) SERUM Spe cimen Type: SERUM No comment entered. Ordering Provider: ALLIE CUELLO Report Released Date/Time: Jul 24, 2024 02:18 PM Reporting Lab: [facility] [address] [facility] [address] Performing Lab: [address] [address] UREA NITROGEN 19 mg/dL 7-25 GLUCOSE 149 mg/dL H 65-100 SODIUM 141 mmol/L 135-145 POTASSIUM 3.4 mmol/L L 3.5-5.0 CHLORIDE 106 mmol/L 100-110 CO2 26 meq/L 20-30 CALCIUM 9.0 mg/dL 8.5-10.2 CREATININE, Serum 0.73 mg/dL 0.50-1.40 eGFR(CKD-EPI 2020) 88 mL/min >60 Aug 07, 2024 07:58 AM [facility] HEMOGLOBIN A1C PANEL BLOOD Specimen Type: BLO OD Comment: Values obtained from A1C measurements can vary. For atypical A1C assays, a reported value of 7.0 could actually be between 6.72 and 7.28 if measured by a reference method. A reported value of 9.0 could actually be between 8.73 and 9.27. Ref: http://www.ngsp.org/CAPdata.asp Ordering Provider: ALLIE CUELLO Report Released Date/Time: Jul 24, 2024 02:23 PM Reporting Lab: [address] [address] Performing Lab: [address] [address] HEMOGLOBIN A1C 5.9 H 4.0-5.6 Aug 07, 2024 07:58 AM [facility] MICROALBUMIN CREATININE RATIO PANEL URINE Spe cimen Type: URINE No comment entered. Ordering Provider: ALLIE CUELLO Report Released Date/Time: Jul 24, 2024 02:23 PM Reporting Lab: [address] [address] Performing Lab: [place] [address] [facility] [address] MICROALBUMIN/CREATININE RATIO 52.0 mg/g H 0-29.9 MICROALBUMIN,QUANTITATIVE 10.4 mg/dL RR UNAVAIL CREATININE URINE 199.85 mg/dL Vital Signs: All taken on the encounter date This section contains inpatient and outpatient Vital Signs collected on the date of the Encounter. Date/Time Temperature Pulse Blood Pressure Respiratory Rate SP02 Pain Height Weight Body Mass Index Source Aug 22, 2024 11:02 AM 97.9 75 107/64 16 94 5 64.5 160 27 [facility] Social History: Smoking Status (Most current) and Tobacco Use (All prior to encounter date) This section includes the most current, and the historical, smoking and tobacco- related health factors from the [place] facility where the Encounter took place. Current Smoking Status This section includes the most current smoking, or tobacco-related health factor, from the [place] facility where the Encounter took place. Date/Time Current Smoking Status Comment [facility] Jun 17, 2024 10:31 AM VA-TOBACCO USE FOR TAMMY CIGARETTES [facility] Tobacco Use History This section includes a history of the smoking, or tobacco-related health factors, that were collected on or before the date of the Encounter. The data comes from the [place] facility where the Encounter took place. Date/Time Smoking Status/Tobac co Use Comment Facility Jun 17, 2024 10:31 AM VA-TOBACCO USE FORMER CIGARETTES [place] [facility] [place] [facility] Jun 05, 2023 11:00 AM VA-TOBACCO FORMER USER [place] [facility] [facility] Jun 05, 2023 11:00 AM VA-TOBACCO QUIT 15 YRS OR MORE [facility] [place] [facility] Jun 06, 2022 01:00 PM VA-TOBACCO FORMER USER [facility] [place] [facility] Jun 06, 2022 01:00 PM VA-TOBACCO QUIT 15 YRS OR MORE [facility] [place] [facility] Jun 30, 2021 02:37 PM VA-TOBACCO FORMER USER [facility] [place] [facility] Jun 30, 2021 02:37 PM VA-TOBACCO QUIT 5 TO < 15 YRS [facility] [place] [facility] May 22, 2020 03:30 PM VA-TOBACCO NEVER USED [place] [facility] [place] [facility] May 08, 2018 02:03 PM VA-TOBACCO FORMER USER [place] [facility] [place] [facility] May 08, 2018 02:03 PM VA-TOBACCO QUIT 15 YRS OR MORE [facility] [place] [facility] November 10, 2017 02:33 PM QUIT TOBACCO USE > 7 YEARS AGO [facility] [place] [facility] October 21, 2016 01:55 PM QUIT TOBACCO USE > 7 YEARS AGO [facility] [place] [facility] Sep 18, 2015 11:24 AM QUIT TOBACCO USE > 7 YEARS AGO stopped 50 years ago [facility] [place] [facility] May 19, 2005 08:01 AM HISTORY OF SMOKING [facility] [place] [facility] May 31, 2004 01:02 PM HISTORY OF SMOKING [place] [facility] [place] [facility] Jun 04, 2003 07:57 AM HISTORY OF SMOKING [facility] Jun 03, 2002 01:11 PM HISTORY OF SMOKING [facility] Jun 03, 2002 01:11 PM QUIT TOBACCO USE > 7 YEARS AGO [facility] Advance Directives: All historical and current [...] Jun 02, 2023 ADVANCE DIRECTIVE JENNIFER QUIROS NE CNT RL [facility] Encounter Notes: All associated encounter notes This section contains the clinical notes associated to the Encounter. Date/Time Encounter Note(s) Provider Source Aug 22, 2024 07:23 AM PHYSICIAN NOTE: LOCAL TITLE: NOTE STANDARD TITLE: PHYSICIAN NOTE DATE OF NOTE: AUG 22, 2024@07:23 ENTRY DATE: AUG 22, 2024@07:23:56 AUTHOR: ALLIE CUELLO COSIGNER: URGENCY: STATUS: COMPLETED NOTE Has ADDENDA CC: Osteoporosis, hypogonadism Diabetes mellitus type 2, insulin pump present HPI: Using a Tandem T:slim X2 insulin pump with control IQ technology. Had abdominal surgery in June followed by rehab stay. He has lost 25 lbs voluntarily, and would like to lose about 10 more lbs. No falls. Takes < one serving a day of dairy. No barriers. Using med organizer. Last calcium fill . Last denosumab dose 05/29 2024. Last visit, was undergoing assessment of elevated PSA, so testosterone deferred. Told by Urology he likely had early prostate CA, surgery not needed. All endocrine labs were reviewed with the patient. Aug 07 Aug 07 [id number] GLUCOSE 150 H 149 H mg/dL 65 - 100 BUN 18 19 mg/dL 7 - 25 CREATININE 0.75 0.73 mg/dL .5 - 1.4 Sodium 143 141 mmol/L 135 - 145 K+/Pot 3.4 L 3.4 L mmol/L 3.5 - 5 CL 106 106 mmol/L 100 - 110 CO2 26 26 mEq/L 20 - 30 CA 9.1 9.0 mg/dL 8.5 - 10.2 Aug 07, 2024@07:58 VITAMIN D (25-OH): 41 ng/mL 20 - 50 JUN 30, 2022 BONE DENSITY AXIAL HIPS,PELVIS.SPINE CLINICAL INDICATION: Osteoporosis? COMPARISON: None Bone Density Measurements: BMD measured in left femoral neck region of interest: 0.572 g/cm^2 T-score: -2.6 TOTAL HIP BMD measured in left total hip region of interest: 0.949 g/cm^2 T-score: -0.6 FOREARM BMD measured in the left mid radius (radius 33%) region of interest: 0.816 g/cm2 T-score: 0 Barriers/s supports for care: Lives alone. Two children are nearby. Takiing two meals a day, bfast and dinner. Cooks for himself from scratch. Medications for diabetes: Pump upload BG readings: Pump upload Hgba1c? HEMOGLOBIN A1C TREND 08/07/2024 07:58 BLOOD 5.9 H 06/04/2024 10:27 BLOOD 6.5 H 10/10/2023 15:41 BLOOD 6.7 H 08/03/2023 08:04 BLOOD 6.0 H 03/24/2023 12:17 BLOOD 5.9 H Weight trend: 160 lbs BMI 27.1 Food insecurity no Physical activity: increasing a little but not a lot Carbohydrate counting: yes endorses entering cho into pump Episodes of hypoglycemia: rare o/n Hypoglycemia unawareness: Neuropathy pain: no pain. 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 Acute mesenteric ischaemia 2. Elevated PSA 3. Aortic Valve Disorder (SCT 5207654) 4. Cerebrovascular disease 5. Chronic recurrent major depressive disorder 6. Insulin pump present 7. Hypertension 8. Family history of cancer of colon 9. Testicular hypofunction 10. Osteoporosis 11. Major depressive disorder 12. RA - Rheumatoid arthritis 13. History of colonic polyp 14. Diverticular disease of colon 15. Adjustment disorder 16. Hemorrhoids 17. Polymyalgia Rheumatica 18. Microscopic Hematuria 19. Rosacea 20. Hypertension (SNOMED CT 38225027) 21. Spinal Stenosis * 22. Hyperlipidemia (SNOMED CT 73543926) 23. Osteoarthritis * 24. Lower Back Pain * 25. Vertigo 26. Diabetes mellitus type 2 (SNOMED CT 97331159) 27. Gastroesophageal Reflux Disorder Active Outpatient Medications (including Supplies): AMLODIPINE BESYLATE 2.5MG TAB TAKE ONE TABLET BY MOUTH ACTIVE ONCE DAILY FOR BLOOD PRESSURE/HEART, DO NOT TAKE WITH GRAPEFRUIT JUICE Indication: FOR HIGH BLOOD PRESSURE ATORVASTATIN CALCIUM 80MG TAB TAKE ONE-HALF TABLET BY ACTIVE MOUTH ONCE DAILY Indication: FOR HIGH CHOLESTEROL CALCIUM 200MG (CA CITRATE-950MG) TAB TAKE FOUR TABLETS BY ACTIVE MOUTH TWICE DAILY Indication: FOR OSTEOPOROSIS CYCLOBENZAPRINE HCL 10MG TAB TAKE ONE TABLET BY MOUTH ACTIVE TWICE DAILY NEEDED Indication: FOR MUSCLE SPASM GABAPENTIN 600MG TAB TAKE ONE TABLET BY MOUTH THREE TIMES ACTIVE (S) A DAY GLUCOSE 4GM CHEW TAB CHEW ONE TABLET BY MOUTH EVERY DAY ACTIVE NEEDED Indication: FOR LOW BLOOD SUGAR GLUCOSE SENSOR DEXCOM G7 USE 1 SENSOR DIRECTED EVERY 10 ACTIVE DAYS HYDROXYCHLOROQUINE SULFATE 200MG TAB TAKE ONE TABLET BY ACTIVE MOUTH ONCE DAILY MONDAY-MONDAY AND THEN TAKE 1 TABLET TWICE DAILY ON MONDAY AND MONDAY. DO NOT TAKE WITH CITALOPRAM INSULIN SYRINGE 1ML 30G 12MM USE ONE SYRINGE ACTIVE SUBCUTANEOUSLY EVERY THIRD DAY FOR INSULIN INJECTIONS INSULIN,ASPART,HUMAN 100 UNIT/ML INJ INJECT 80 UNITS ACTIVE SUBCUTANEOUSLY EVERY DAY DIRECTED FOR USE WITH CONTINUOUS SUBCUTANEOUS INSULIN INFUSION DEVICE Indication: FOR DIABETES LEFLUNOMIDE 20MG TAB TAKE ONE TABLET BY MOUTH ONCE DAILY ACTIVE LOSARTAN 100MG TAB TAKE ONE TABLET BY MOUTH ONCE DAILY FOR ACTIVE BLOOD PRESSURE/HEART Indication: FOR HIGH BLOOD PRESSURE MULTIVIT/OPHTH AREDS2/LUTE/ZEAX CAP/TAB TAKE 1 CAPSULE BY ACTIVE MOUTH TWICE DAILY IN THE MORNING AND EVENING, WITH FOOD PILOCARPINE HCL 5MG TAB TAKE ONE TABLET BY MOUTH TWICE ACTIVE DAILY PREDNISONE 2.5MG TAB TAKE THREE TABLETS BY MOUTH ONCE ACTIVE DAILY PREDNISONE 5MG TAB TAKE ONE TABLET BY MOUTH ONCE DAILY ACTIVE PSYLLIUM ORAL PWD TAKE 2 TEASPOONFULS BY MOUTH ONCE DAILY ACTIVE (MIX WITH AT LEAST 8OZ. OF WATER OR OTHER FLUID) Indication: FOR CONSTIPATION RESERVOIR,T:SLIM X2 W/T:LOCK,3ML USE 1 RESERVOIR ACTIVE DIRECTED EVERY THIRD DAY SET,INFUSION [employer] TANDEM #[id number] 1 INFUSION SET ACTIVE DIRECTED SET,INFUSION [employer] TANDEM #[id number] 1 SET (17MM 43'') ACTIVE EVERY THIRD DAY SYRINGE 2.5-3ML/NDL 21G 1IN USE 1 SYRINGE EVERY THIRD DAY ACTIVE TAMSULOSIN HCL 0.4MG CAP TAKE TWO CAPSULES BY MOUTH AT ACTIVE (S) BEDTIME TOCILIZUMAB 162MG/0.9ML INJ SYR 0.9ML INJECT 162MG [...] 10MG BY MOUTH TWICE ACTIVE DAILY Non-VA FUROSEMIDE 20MG TAB 20MG BY MOUTH ONCE DAILY ACTIVE Non-VA OMEPRAZOLE 20MG EC CAP 20MG BY MOUTH EVERY DAY ACTIVE Non-VA PILOCARPINE HCL 5MG TAB 5MG BY MOUTH TWICE DAILY ACTIVE 31 Total Medications SHX: as above ROS: PE: Fundi Feet pulses sensory to monofilament lesions Medical Decision Making: Diabetes mellitus type 2, insulin pump present Candidate for empagliflozin due to elevated microalbumin. ICA and LUI 63 abs first xxxxxxxxxxxxxxxxxxxxxxxxxxxxx xxxx? Insulin Dose: Carbohydrate targets 45 gm TID Blood sugar targets Control IQ Hemoglobin A1c Targets 8 Hypertension Hyperlipidemia Well controlled Team follow up lab Insulin orders updated in cprs F/u three mos /es/ ALLIE CUELLO MD STAFF PHYSICIAN Signed: 08/22/2024 11:16 08/22/2024 ADDENDUM STATUS: COMPLETED CC: Osteoporosis, hypogonadism Diabetes mellitus type 2, insulin pump present HPI: Using a Tandem T:slim X2 insulin pump with control IQ technology. Pump is due for change soon. Had abdominal surgery in June followed by rehab stay. He has lost 25 lbs voluntarily, and would like to lose about 10 more lbs. No falls. Takes < one serving a day of dairy. No barriers. Using med organizer. Last calcium fill . Last denosumab dose 05/29 2024. Last visit, was undergoing assessment of elevated PSA, so testosterone deferred. Told by Urology he likely had early prostate CA, surgery not needed. All endocrine labs were reviewed with the patient. Aug 07 Aug 07 20242024 GLUCOSE 150 H 149 H mg/dL 65 - 100 BUN 18 19 mg/dL 7 - 25 CREATININE 0.75 0.73 mg/dL .5 - 1.4 Sodium 143 141 mmol/L 135 - 145 K+/Pot 3.4 L 3.4 L mmol/L 3.5 - 5 CL 106 106 mmol/L 100 - 110 CO2 26 26 mEq/L 20 - 30 CA 9.1 9.0 mg/dL 8.5 - 10.2 Aug 07, 2024@07:58 VITAMIN D (25-OH): 41 ng/mL 20 - 50 JUN 30, 2022 BONE DENSITY AXIAL HIPS,PELVIS.SPINE CLINICAL INDICATION: Osteoporosis? COMPARISON: None Bone Density Measurements: BMD measured in left femoral neck region of interest: 0.572 g/cm^2 T-score: -2.6 TOTAL HIP BMD measured in left total hip region of interest: 0.949 g/cm^2 T-score: -0.6 FOREARM BMD measured in the left mid radius (radius 33%) region of interest: 0.816 g/cm2 T-score: 0 Barriers/s supports for care: Lives alone. Two children are nearby. Takiing two meals a day, bfast and dinner. Cooks for himself from scratch. Medications for diabetes: Pump upload BG readings: Pump upload Hgba1c? HEMOGLOBIN A1C TREND 08/07/2024 07:58 BLOOD 5.9 H 06/04/2024 10:27 BLOOD 6.5 H 10/10/2023 15:41 BLOOD 6.7 H 08/03/2023 08:04 BLOOD 6.0 H 03/24/2023 12:17 BLOOD 5.9 H Weight trend: 160 lbs BMI 27.1 Food insecurity no Physical activity: increasing a little but not a lot Carbohydrate counting: yes endorses entering cho into pump Episodes of hypoglycemia: rare o/n Hypoglycemia unawareness: Neuropathy pain: no pain. 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 Dias in [facility] Last nephropathy screen MICROALBUMIN Aug 07, 2024@07:58 URINE mALB/Cr: 52.0 H mg/G 0 - 29.9 FindingsCREATININE-EGFR 08/07/24 07:58 0.75 08/07/24 07:58 0.73 06/04/24 10:27 0.97 Statin therapy: Jun 04 May 08 Reference 2023 2023 CHOL 151 142 mg/dL <7 - 199 TRIG 146 179 H mg/dL 0 - 150 HDL 49 42 mg/dL 40 - 60 LDL 73 64 mg/dL 0 - 70 CAD: CVD On asa: yes emergency kit/glucose tabs: n.a Ketodiastix no, ordered insulin glargine for switchback likely Active problems - Computerized Problem List is the source for the followin. Acute mesenteric ischaemia 2. Elevated PSA 3. Aortic Valve Disorder (SCT 4114252) 4. Cerebrovascular disease 5. Chronic recurrent major depressive disorder 6. Insulin pump present 7. Hypertension 8. Family history of cancer of colon 9. Testicular hypofunction 10. Osteoporosis 11. Major depressive disorder 12. RA - Rheumatoid arthritis 13. History of colonic polyp 14. Diverticular disease of colon 15. Adjustment disorder 16. Hemorrhoids 17. Polymyalgia Rheumatica 18. Microscopic Hematuria 19. Rosacea 20. Hypertension (SNOMED CT 23127764) 21. Spinal Stenosis * 22. Hyperlipidemia (SNOMED CT 65814615) 23. Osteoarthritis * 24. Lower Back Pain * 25. Vertigo 26. Diabetes mellitus type 2 (SNOMED CT 87133525) 27. Gastroesophageal Reflux Disorder Active Outpatient Medications (including Supplies): AMLODIPINE BESYLATE 2.5MG TAB TAKE ONE TABLET BY MOUTH ACTIVE ONCE DAILY FOR BLOOD PRESSURE/HEART, DO NOT TAKE WITH GRAPEFRUIT JUICE Indication: FOR HIGH BLOOD PRESSURE ATORVASTATIN CALCIUM 80MG TAB TAKE ONE-HALF TABLET BY ACTIVE MOUTH ONCE DAILY Indication: FOR HIGH CHOLESTEROL CALCIUM 200MG (CA CITRATE-950MG) TAB TAKE FOUR TABLETS BY ACTIVE MOUTH TWICE DAILY Indication: FOR OSTEOPOROSIS CYCLOBENZAPRINE HCL 10MG TAB TAKE ONE TABLET BY MOUTH ACTIVE TWICE DAILY NEEDED Indication: FOR MUSCLE SPASM GABAPENTIN 600MG TAB TAKE ONE TABLET BY MOUTH THREE TIMES ACTIVE (S) A DAY GLUCOSE 4GM CHEW TAB CHEW ONE TABLET BY MOUTH EVERY DAY ACTIVE NEEDED Indication: FOR LOW BLOOD SUGAR GLUCOSE SENSOR DEXCOM G7 USE 1 SENSOR DIRECTED EVERY 10 ACTIVE DAYS HYDROXYCHLOROQUINE SULFATE 200MG TAB TAKE ONE TABLET BY ACTIVE MOUTH ONCE DAILY MONDAY-MONDAY AND THEN TAKE 1 TABLET TWICE DAILY ON MONDAY AND MONDAY. DO NOT TAKE WITH CITALOPRAM INSULIN SYRINGE 1ML 30G 12MM USE ONE SYRINGE ACTIVE SUBCUTANEOUSLY EVERY THIRD DAY FOR INSULIN INJECTIONS INSULIN,ASPART,HUMAN 100 UNIT/ML INJ INJECT 80 UNITS ACTIVE SUBCUTANEOUSLY EVERY DAY DIRECTED FOR USE WITH CONTINUOUS SUBCUTANEOUS INSULIN INFUSION DEVICE Indication: FOR DIABETES LEFLUNOMIDE 20MG TAB TAKE ONE TABLET BY MOUTH ONCE DAILY ACTIVE LOSARTAN 100MG TAB TAKE ONE TABLET BY MOUTH ONCE DAILY FOR ACTIVE BLOOD PRESSURE/HEART Indication: FOR HIGH BLOOD PRESSURE MULTIVIT/OPHTH AREDS2/LUTE/ZEAX CAP/TAB TAKE 1 CAPSULE BY ACTIVE MOUTH TWICE DAILY IN THE MORNING AND EVENING, WITH FOOD PILOCARPINE HCL 5MG TAB TAKE ONE TABLET BY MOUTH TWICE ACTIVE DAILY PREDNISONE 2.5MG TAB TAKE THREE TABLETS BY MOUTH ONCE ACTIVE DAILY PREDNISONE 5MG TAB TAKE ONE TABLET BY MOUTH ONCE DAILY ACTIVE PSYLLIUM ORAL PWD TAKE 2 TEASPOONFULS BY MOUTH ONCE DAILY ACTIVE (MIX WITH AT LEAST 8OZ. OF WATER OR OTHER FLUID) Indication: FOR CONSTIPATION RESERVOIR,T:SLIM X2 W/T:LOCK,3ML USE 1 RESERVOIR ACTIVE DIRECTED EVERY THIRD DAY SET,INFUSION VARISOFT TANDEM #[id number] 1 INFUSION SET ACTIVE DIRECTED SET,INFUSION VARISOFT TANDEM #[id number] 1 SET (17MM 43'') ACTIVE EVERY THIRD DAY SYRINGE 2.5-3ML/NDL 21G 1IN USE 1 SYRINGE EVERY THIRD DAY ACTIVE TAMSULOSIN HCL 0.4MG CAP TAKE TWO CAPSULES BY MOUTH AT ACTIVE (S) BEDTIME TOCILIZUMAB 162MG/0.9ML INJ SYR 0.9ML INJECT 162MG ACTIVE discontinued SUBCUTANEOUSLY EVERY 2 WEEKS Non-VA ACETAMINOPHEN TAB BY MOUTH ONCE DAILY NEEDED ACTIVE Non-VA AMLODIPINE BESYLATE 2.5MG TAB 2.5MG BY MOUTH ONCE ACTIVE DAILY Non-VA ASPIRIN 81MG EC TAB 81MG BY MOUTH ONCE DAILY ACTIVE Non-VA CHOLECALCIF 50MCG (D3-2,000UNIT) TAB 50MCG BY MOUTH ACTIVE ONCE DAILY Non-VA CYCLOBENZAPRINE HCL 10MG TAB 10MG BY MOUTH TWICE ACTIVE DAILY duplicate Non-VA FUROSEMIDE 20MG TAB 20MG BY MOUTH ONCE DAILY ACTIVE Non-VA OMEPRAZOLE 20MG EC CAP 20MG BY MOUTH EVERY DAY ACTIVE Non-VA PILOCARPINE HCL 5MG TAB 5MG BY MOUTH TWICE DAILY ACTIVE duplicate 31 Total Medications SHX: as above ROS: Some slight cough no fever PE: affect pleasant appropriate speaking easily in full sentences Feet pulses mild decrease sensory to monofilament normal lesions none Medical Decision Making: Diabetes mellitus type 2, insulin pump present Candidate for empagliflozin due to elevated microalbumin. ICA and LUI 65 abs first xxxxxxxxxxxxxxxxxxxxxxxxxxxxx xxxx? Insulin Dose: Change bfast ICR from 5.6 to 5.2. He is using pump correctly. Suggested to decline more than first bolus offer if bg are high, to avoid low bg. Carbohydrate targets 45 gm TID Blood sugar targets Control IQ Hemoglobin A1c Targets 8 Hypertension well controlled Hyperlipidemia Well controlled Team follow up He will find out from [employer] what the most advantageous process for him is. He will let me know if I need to order replacement pump. We will arrange for DM educator to transfer settings. lab Insulin orders updated in cprs F/u three mos FLP BMP Hgba1c microalb next visit. Medication Reconciliation: Outpatient: Has the patient been taking medications as documented in the EMLR? No: Discrepencies were identified. See below. Essential Medication List for Review used to complete this medication reconciliation. INCLUDED IN THIS LIST: Alphabetical list of active outpatient prescriptions dispensed from this [facility] (local) and dispensed from another [facility] or [facility] facility (remote) as well as [...] Remote Allergy/ADR Data available for this patient [facility] METFORMIN [facility] PENICILLIN [facility] ZOSYN Med Recon NoGlossary (Tool #1) INCLUDED IN THIS LIST: Alphabetical list of active outpatient prescriptions dispensed from this [facility] (local) and dispensed from another [place] or [facility] facility (remote) as well as inpatient orders (local pending and active), local clinic medications, locally documented non-VA medications, and local prescriptions that have or been discontinued in the past 90 days. Non-VA Meds Last Documented On: Oct 09, 2023 NOTE The display of VA prescriptions dispensed from another NE or [facility] facility (remote) is limited to active outpatient prescription entries matched to National Drug File at the originating site and may not include some items such as investigational drugs, compounds, etc. NOT INCLUDED IN THIS LIST: Medications self-entered by the patient into personal health records (i.e. [employer]) are NOT included in this list. Non-VA medications documented outside this [facility], remote inpatient orders (regardless of status) and remote clinic medications are NOT included in this list. The patient and provider must always discuss medications the patient is taking, regardless of where the medication was dispensed or obtained. Non-VA ACETAMINOPHEN TAB TAKE BY MOUTH ONCE DAILY NEEDED Non-VA AMLODIPINE BESYLATE 2.5MG TAB TAKE ONE TABLET BY MOUTH ONCE DAILY OUTPT AMLODIPINE BESYLATE 2.5MG TAB (Status = Active) TAKE ONE TABLET BY MOUTH ONCE DAILY FOR BLOOD PRESSURE/HEART, DO NOT TAKE WITH GRAPEFRUIT JUICE Rx# [id number] Last Released: 08/13/24 Qty/Days Supply: 90 Rx Expiration Date: 08/10/25 Refills Remainin Indication: FOR HIGH BLOOD PRESSURE Non-VA ASPIRIN 81MG EC TAB TAKE ONE TABLET BY MOUTH ONCE DAILY OUTPT ATORVASTATIN CALCIUM 80MG TAB (Status = Active) TAKE ONE-HALF TABLET BY MOUTH ONCE DAILY Rx# [id number] Last Released: 06/25/24 Qty/Days Supply: 45/90 Rx Expiration Date: 02/27/25 Refills Remainin Indication: FOR HIGH CHOLESTEROL OUTPT CALCIUM 200MG (CA CITRATE-950MG) TAB (Status = Active) TAKE FOUR TABLETS BY MOUTH TWICE DAILY Rx# [id number] Last Released: 05/08/24 Qty/Days Supply: 800/90 Rx Expiration Date: 11/27/24 Refills Remainin Indication: FOR OSTEOPOROSIS Non-VA CHOLECALCIF 50MCG (D3-2,000UNIT) TAB TAKE ONE TABLET BY MOUTH ONCE DAILY Aug 11, 2020 Non-VA medication not recommended by VA provider. OUTPT CITALOPRAM HYDROBROMIDE 10MG TAB (Status = Discontinued) TAKE ONE-HALF TABLET BY MOUTH ONCE DAILY FOR DEPRESSION AND ANXIETY Rx# [id number] Last Released: 05/28/24 Qty/Days Supply: 45 Rx Expiration Date: 02/28/25 Refills Remainin Indication: FOR MAJOR DEPRESSIVE DISORDER Non-VA CYCLOBENZAPRINE HCL 10MG TAB TAKE ONE TABLET BY MOUTH TWICE DAILY OUTPT CYCLOBENZAPRINE HCL 10MG TAB (Status = Active) TAKE ONE TABLET BY MOUTH TWICE DAILY NEEDED FOR MUSCLE SPASM Rx# [id number] Last Released: 08/13/24 Qty/Days Supply: 180 Rx Expiration Date: 08/10/25 Refills Remainin Indication: FOR MUSCLE SPASM OUTPT DENOSUMAB 60MG/ML INJ SYRINGE 1ML (Status = ) INJECT 60MG/1ML SUBCUTANEOUSLY ONE TIME FOR OSTEOPOROSIS Rx# [id number] Last Released: 05/07/24 Qty/Days Supply: 07/18 Rx Expiration Date: 05/30/24 Refills Remainin Indication: FOR OSTEOPOROSIS Non-VA FUROSEMIDE 20MG TAB TAKE ONE TABLET BY MOUTH ONCE DAILY OUTPT GABAPENTIN 600MG TAB (Status = Discontinued) TAKE ONE TABLET BY MOUTH THREE TIMES A DAY Rx# [id number] Last Released: 07/10/24 Qty/Days Supply: 270 Rx Expiration Date: 09/30/24 Refills Remainin OUTPT GABAPENTIN 600MG TAB (Status = Active/Suspended) TAKE ONE TABLET BY MOUTH THREE TIMES A DAY Rx# [id number] Last Released: Qty/Days Supply: 270 Rx Expiration Date: 11/14/24 Refills Remainin OUTPT GLUCOSE 4GM CHEW TAB (Status = Active) CHEW ONE TABLET BY MOUTH EVERY DAY NEEDED FOR LOW BLOOD SUGAR Rx# [id number] Last Released: 04/08/24 Qty/Days Supply: Rx Expiration Date: 04/03/25 Refills Remainin Indication: FOR LOW BLOOD SUGAR OUTPT HYDROXYCHLOROQUINE SULFATE 200MG TAB (Status = Discontinued) TAKE TWO TABLETS BY MOUTH ONCE DAILY 5 DAYS A WEEK, AND 1 TABLET DAILY 2 DAYS A WEEK. Rx# [id number] Last Released: 05/23/24 Qty/Days Supply: Rx Expiration Date: 08/19/24 Refills Remainin OUTPT HYDROXYCHLOROQUINE SULFATE 200MG TAB (Status = Active) TAKE ONE TABLET BY MOUTH ONCE DAILY MONDAY-MONDAY AND THEN TAKE 1 TABLET TWICE DAILY ON MONDAY AND MONDAY. DO NOT TAKE WITH CITALOPRAM Rx# [id number] Last Released: 08/01/24 Qty/Days Supply: 108 Rx Expiration Date: 08/01/25 Refills Remainin OUTPT INSULIN,ASPART,HUMAN 100 UNIT/ML INJ (Status = Active) INJECT 80 UNITS SUBCUTANEOUSLY EVERY DAY DIRECTED FOR USE WITH CONTINUOUS SUBCUTANEOUS INSULIN INFUSION DEVICE Rx# [id number] Last Released: 06/04/24 Qty/Days Supply: Rx Expiration Date: 09/01/24 Refills Remainin Indication: FOR DIABETES OUTPT KETOCONAZOLE 2% CREAM (Status = ) APPLY A THIN LAYER TOPICALLY TWICE DAILY RASH APPLY TO AFFECTED AREAS ON FACE TWICE DAILY FOR 4 WEEKS, THEN NEEDED Rx# [id number] Last Released: 07/21/23 Qty/Days Supply: 120/30 Rx Expiration Date: 07/13/24 Refills Remainin Indication: RASH OUTPT KETOCONAZOLE 2% SHAMPOO (Status = ) SHAMPOO SMALL AMOUNT TOPICALLY TWICE A WEEK NEEDED APPLY FOR 8 WEEKS, THEN NEEDED Rx# [id number] Last Released: 06/25/24 Qty/Days Supply: 240/30 Rx Expiration Date: 07/13/24 Refills Remainin Indication: SCALP RASH OUTPT LEFLUNOMIDE 20MG TAB (Status = ) TAKE ONE TABLET BY MOUTH ONCE DAILY Rx# [id number] Last Released: 05/02/24 Qty/Days Supply: 90 Rx Expiration Date: 07/29/24 Refills Remainin OUTPT LEFLUNOMIDE 20MG TAB (Status = Active) TAKE ONE TABLET BY MOUTH ONCE DAILY Rx# [id number] Last Released: 08/01/24 Qty/Days Supply: 90 Rx Expiration Date: 08/01/25 Refills Remainin OUTPT LOSARTAN 100MG TAB (Status = Active) TAKE ONE TABLET BY MOUTH ONCE DAILY FOR BLOOD PRESSURE/HEART Rx# [id number] Last Released: 08/13/24 Qty/Days Supply: 90 Rx Expiration Date: 08/10/25 Refills Remainin Indication: FOR HIGH BLOOD PRESSURE OUTPT MULTIVIT/OPHTH AREDS2/LUTE/ZEAX CAP/TAB (Status = Active) TAKE 1 CAPSULE BY MOUTH TWICE DAILY IN THE MORNING AND EVENING, WITH FOOD Rx# [id number] Last Released: 06/25/24 Qty/Days Supply: 120/60 Rx Expiration Date: 04/30/25 Refills Remainin Non-VA OMEPRAZOLE 20MG EC CAP TAKE 1 CAPSULE BY MOUTH EVERY DAY Non-VA PILOCARPINE HCL 5MG TAB TAKE ONE TABLET BY MOUTH TWICE DAILY Dec 04, 2020 Non-VA medication not recommended by VA provider. OUTPT PILOCARPINE HCL 5MG TAB (Status = Active) TAKE ONE TABLET BY MOUTH TWICE DAILY Rx# [id number] Last Released: 08/15/24 Qty/Days Supply: 180/ Rx Expiration Date: 08/14/25 Refills Remainin OUTPT PREDNISONE 2.5MG TAB (Status = Active) TAKE THREE TABLETS BY MOUTH ONCE DAILY Rx# [id number] Last Released: 06/25/24 Qty/Days Supply: 90/30 Rx Expiration Date: 04/30/25 Refills Remainin OUTPT PREDNISONE 5MG TAB (Status = Active) TAKE ONE TABLET BY MOUTH ONCE DAILY Rx# [id number] Last Released: 08/01/24 Qty/Days Supply: 90 Rx Expiration Date: 08/01/25 Refills Remainin OUTPT PSYLLIUM ORAL PWD (Status = Active) TAKE 2 TEASPOONFULS BY MOUTH ONCE DAILY FOR CONSTIPATION (MIX WITH AT LEAST 8OZ. OF WATER OR OTHER FLUID) Rx# [id number] Last Released: 08/06/24 Qty/Days Supply: 390/ Rx Expiration Date: 07/31/25 Refills Remainin Indication: FOR CONSTIPATION OUTPT TAMSULOSIN HCL 0.4MG CAP (Status = Active/Suspended) TAKE TWO CAPSULES BY MOUTH AT BEDTIME Rx# [id number] Last Released: 07/10/24 Qty/Days Supply: 180/ Rx Expiration Date: 01/22/25 Refills Remainin OUTPT TOCILIZUMAB 162MG/0.9ML INJ SYR 0.9ML (Status = Active) INJECT 162MG SUBCUTANEOUSLY EVERY 2 WEEKS Rx# [id number] Last Released: 07/09/24 Qty/Days Supply: 08/16 Rx Expiration Date: 04/12/25 Refills Remainin SUPPLIES OUTPT GLUCOSE SENSOR DEXCOM G7 (Status = Active) USE 1 SENSOR DIRECTED EVERY 10 DAYS Rx# [id number] Last Released: 06/25/24 Qty/Days Supply: Rx Expiration Date: 06/18/25 Refills Remainin OUTPT INSULIN SYRINGE 1ML 30G 12MM (Status = Discontinued) USE ONE SYRINGE SUBCUTANEOUSLY EVERY THIRD DAY FOR INSULIN INJECTIONS Rx# [id number] Last Released: 08/16/24 Qty/Days Supply: Rx Expiration Date: 08/17/25 Refills Remainin OUTPT INSULIN SYRINGE 1ML 31G 8MM (Status = Discontinued) USE 1 SYRINGE EVERY THIRD DAY FOR INSULIN INJECTIONS Rx# [id number] Last Released: 07/16/24 Qty/Days Supply: Rx Expiration Date: 10/13/24 Refills Remainin OUTPT KETODIASTIX GLUCOSE KETONE TEST STRIP (Status = Pending) KETONE TEST STRIP USE 1 STRIP TO TEST BLOOD SUGARS ONE TIME NEEDED Login Date: 08/22/24 Qty/Days Supply: 100 Refills Ordered: 0 OUTPT RESERVOIR,T:SLIM X2 W/T:LOCK,3ML (Status = Active) USE 1 RESERVOIR DIRECTED EVERY THIRD DAY Rx# [id number] Last Released: 07/16/24 Qty/Days Supply: Rx Expiration Date: 07/17/25 Refills Remainin OUTPT SET,INFUSION VARISOFT TANDEM #[id number] (Status = Active) 1 INFUSION SET DIRECTED Rx# [id number] Last Released: 08/14/24 Qty/Days Supply: Rx Expiration Date: 08/09/25 Refills Remainin OUTPT SET,INFUSION VARISOFT TANDEM #[id number] (Status = Active) 1 SET (17MM 43'') EVERY THIRD DAY Rx# [id number] Last Released: 07/16/24 Qty/Days Supply: Rx Expiration Date: 07/17/25 Refills Remainin OUTPT SYRINGE 2.5-3ML/NDL 21G 1IN (Status = Active) USE 1 SYRINGE EVERY THIRD DAY Rx# [id number] Last Released: Qty/Days Supply: Rx Expiration Date: 07/18/25 Refills Remainin High Risk for HYPOglycemia: Not reported. Comment: GMI 7.6 Hypoglycemic screen clinical decision: No change in glycemic management at this time. /benny CUELLO MD STAFF PHYSICIAN Signed: 08/22/2024 11:50 08/22/2024 ADDENDUM STATUS: COMPLETED Three mos FTF one hour FLP bmp hgba1c microalb prior with ICA and LUI 65 abs. /benny CUELLO MD STAFF PHYSICIAN Signed: 08/22/2024 11:58 [facility]
--- OUTSIDE RECORDS SUMMARY | 2024-10-01 11:26 | XMS_ITS | Encounter Summary ---
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 Name Role Phone Jamilah Bueno Primary Care Provider [phone] Encounter Details Date Type Department Care Team (Late st Contact Info) Description 07/22/2024 Lab Requisition [facility] - Main Lab [address] [facility] [place] [address] Trina Brock MD [address] [place] [id number] Occlusion and stenosis of left vertebral artery; Benign prostatic hyperplasia without lower urinary tract symptoms; 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 V24, [facility] V28) Social History Tobacco Use Types Packs/Day Years [...] Description 10/30/2024 1:30 PM EDT Ancillary Procedure [facility] [address] [place] [phone] 11/04/2024 3:40 PM EDT Office Visit [facility] [address] [place] [phone] Goldy Butler NP [address] [place] [address] [address] [place], [place] [id number] 02/24/2025 11:10 AM EDT Office Visit [facility] [address] [facility] [address] [place] [address] Emmie Pickens NP [address] [place] [address] [address] [place], [place] [phone] documented as of this encounter Procedures Procedure Name Priority Date/Time Associated Diagnosis Comments COMPLETE BLOOD COUNT Routine 07/23/2024 6:38 AM EST Occlusion and stenosis of left vertebral artery Benign prostatic hyperplasia without lower urinary tract symptoms 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 Type 2 diabetes mellitus without complications (CMS/HCC) BASIC METABOLIC PANEL Routine 07/23/2024 6:38 AM EST Occlusion and stenosis of left vertebral artery Benign prostatic hyperplasia without lower urinary tract symptoms 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 Type 2 diabetes mellitus without complications (CMS/HCC) documented in this encounter Results * (ABNORMAL) Basic metabolic panel (07/23/2024 6:38 AM EST) Sodium 142 133 - 145 mmol/L LAB CHEMISTRY METHOD 07/23/2024 9:46 AM EST [facility] Potassium 3.4(L) 3.5 - 5.5 mmol/L LAB CHEMISTRY METHOD 07/23/2024 9:46 AM EST [facility] Chloride 107 96 - 110 mmol/L LAB CHEMISTRY METHOD 07/23/2024 9:46 AM EST [facility] CO2 28 21 - 32 mmol/L LAB CHEMISTRY METHOD 07/23/2024 9:46 AM [facility] Anion Gap 7 3 - 11 LAB CHEMISTRY METHOD 07/23/2024 9:46 AM [facility] Glucose 126(H) 70 - 100 mg/dL LAB CHEMISTRY METHOD 07/23/2024 9:46 AM [facility] BUN 9 5 - 25 mg/dL LAB CHEMISTRY METHOD 07/23/2024 9:46 AM [facility] Creatinine 0.67(L) 0.70 - 1.30 mg/dL LAB CHEMISTRY METHOD 07/23/2024 9:46 AM [facility] eGFR 91 >=60 mL/min/1. 73m2 LAB CHEMISTRY METHOD 07/23/2024 9:46 AM [facility] Comment:Calculation based on the??Chronic Kidney Disease Epidemiology Collaboration (CKD-EPI) equation refit??without adjustment for race. BUN/Creatinine Ratio 13.4 LAB CHEMISTRY METHOD 07/23/2024 9:46 AM [facility] Calcium 8.6 8.5 - 10.5 mg/dL LAB CHEMISTRY METHOD 07/23/2024 9:46 AM [facility] Blood Venous blood specimen / Unknown Venipuncture / Unknown 07/23/2024 6:38 AM EST 07/23/2024 8:11 AM EST us Trina Brock MD LAB BLOOD ORDERABLES Fin al Result [facility] [address] [place] [address], * (ABNORMAL) Complete blood count (07/23/2024 6:38 AM EST) WBC 2.8(L) 4.8 - 10.8 K/mcL LAB HEMETOLOGY METHOD 07/23/2024 9:30 AM [facility] RBC 3.50(L) 4.50 - 5.50 M/mcL LAB HEMETOLOGY METHOD 07/23/2024 9:30 AM [facility] Hemoglobin 10.7(L) 13.5 - 17.5 g/dL LAB HEMETOLOGY METHOD 07/23/2024 9:30 AM [facility] Hematocrit 33.9(L) 42.0 - 54.0 % LAB HEMETOLOGY METHOD 07/23/2024 9:30 AM [facility] MCV 97.7 79.0 - 98.0 FL LAB HEMETOLOGY METHOD 07/23/2024 9:30 AM [facility] MCH 30.8 27.0 - 32.0 pcg LAB HEMETOLOGY METHOD 07/23/2024 9:30 AM [facility] MCHC 31.6(L) 32.0 - 37.0 g/dL LAB HEMETOLOGY METHOD 07/23/2024 9:30 AM [facility] RDW 15.0 11.0 - 15.0 % LAB HEMETOLOGY METHOD 07/23/2024 9:30 AM [facility] Platelets 88(L) 130 - 400 K/mcL LAB HEMETOLOGY METHOD 07/23/2024 9:30 AM [facility] Comment:previously verified by slide MPV 9.6 7.0 - 11.0 FL LAB HEMETOLOGY METHOD 07/23/2024 9:30 AM [facility] NRBC 0.0 <1.0 % LAB HEMETOLOGY METHOD 07/23/2024 9:30 AM [facility] NRBC Absolute 0.00 <0.10 K/mcL LAB HEMETOLOGY METHOD 07/23/2024 9:30 AM [facility] Blood Venous blood specimen / Unknown Venipuncture / Unknown 07/23/2024 6:38 AM EST 07/23/2024 8:11 AM EST us Trina Brock MD LAB BLOOD ORDERABLES Fin al Result [facility] [address] [place] [address], [place] [phone] documented in this encounter Visit Diagnoses Diagnosis Occlusion and stenosis of left vertebral artery Benign prostatic hyperplasia without lower urinary tract symptoms 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
--- OUTSIDE RECORDS SUMMARY | 2024-10-01 11:26 | XMS_ITS | Encounter Summary ---
Author Name [facility] [place] Organization [facility] [place] Address [address] [place] [id number] Care Team Providers Care Project Officer Name Role Phone TOÑO CAI Primary Care [...] [place] MED[place] SUPPLEMEN MASTER PSUED O MEDEX [facility] E Mar 19, 2004 [id number] HOLLIE SHEPHERD PATIENT [place] SUPPLEMEN MASTER MEDEX [facility] E Mar 19, 2004 [id number] [phone] HOLLIE [place] SUPPLEMEN MASTER MEDEX [place] E Mar 19, 2004 [id number] [phone] HOLLIE SHEPHERD PATIENT BCBS [facility] MEDICARE SUPPLEMEN MASTER PSUED O MEDEX [facility] E Mar 19, 2004 [id number] HOLLIE SHEPHERD PATIENT MEDICARE (WNR) MEDICARE (M) PART B Mar 19, 2004 PART B [id number] HOLLIE SHEPHERD PATIENT MEDICARE (WNR) MEDICARE (M) PART B Mar 19, 2004 PART B [id number] HOLLIE SHEPHERD PATIENT MEDICARE (WNR) MEDICARE (M) PART B Mar 19, 2004 PART B [id number] CORAHOLLIE SILVA PATIENT MEDICARE (WNR) MEDICARE (M) PART A Feb 17, 2003 PART A [id number] [phone] CORAHOLLIE SILVA PATIENT MEDICARE (WNR) MEDICARE (M) PART A Feb 17, 2003 PART A [id number] [phone] [id number] HOLLIE SHEPHERD PATIENT MEDICARE (WNR) MEDICARE (M) PART A Feb 17, 2003 PART A [id number] HOLLIE SHEPHRED PATIENT MEDICARE (WNR) MEDICARE (M) PART A Feb 17, 2003 PART A [id number] [phone] HOLLIE SHEPHERD PATIENT MEDICARE (WNR) MEDICARE (M) PART B Feb 17, 2003 PART B [id number] [phone] HOLLIE SHEPHERD PATIENT MEDICARE (WNR) MEDICARE (M) PART A Feb 17, 2003 PART A [id number] HOLLIE SHEPHERD PATIENT MEDICARE (WNR) MEDICARE (M) PART B Feb 17, 2003 PART B [id number] HOLLIE SHEPHERD PATIENT Selected Encounter This section includes the information on record at [place] for the Encounter. Date/Time Encounter Type Encounter Description Reason Provider Source Oct 10, 2023 02:30 PM OFFICE O/P EST HI 40 MIN DERMATOLOGY ICD-10-CM Z85.828 Personal history of other malignant neoplasm of skin JAHAIRA PENA Mikey Encounter Template Text not used by [place] Assessments - Encounter Diagnoses This section includes the primary and secondary diagnoses documented for the Encounter. Date/Time Primary/Secondary Diagnosis Diagnosis Name Provider Source November 04, 2023 09:57 AM PRIMARY Personal history of other malignant neoplasm of [facility] [place] [facility] November 04, 2023 09:57 AM SECONDARY Inflamed seborrheic keratosis GUSTAVO PENA [facility] [place] [facility] November 04, 2023 09:57 AM SECONDARY Neoplasm of uncertain behavior of skin GUSTAVO PENA [facility] [place] [facility] November 04, 2023 09:57 AM SECONDARY Other melanin [facility]pig[facility] [place] [facility] November 04, 2023 09:57 AM SECONDARY Other seborrheic dermatitis [facility] [place] [facility] November 04, 2023 09:57 AM SECONDARY Other seborrheic keratosis [facility] [place] [facility] Plan of Treatment: Future Appointments (+ [...] C [facility] [place] [facility] November 01, 2023 10:30 AM AMBULATORY [place] [facility] November 01, 2023 10:30 AM AMBULATORY - PSYCHIATRY [facility] [place] [facility] November 01, 2023 11:15 AM AMBULATORY - MEDICINE [facility] [place] [facility] November 01, 2023 01:30 PM AMBULATORY - MEDICINE [facility] [place] [facility] November 02, 2023 11:15 AM AMBULATORY - MEDICINE [facility] [place] [facility] November 02, 2023 11:30 AM AMBULATORY - MEDICINE [facility] [place] [facility] November 06, 2023 02:50 PM AMBULATORY [...] PM AMBULAT[facility] - [facility] Active, Pending, and Scheduled Orders This section includes a listing of several types of active, pending, and scheduled orders, including clinic medications orders, diagnostic test orders, procedure orders and consult orders; where the start date of the order is 45 days before the date of the Encounter or 45 days after the date of theEncounter. The data comes from all [place] treatment facilities. Test Date/Time Test Type Test Details Facility Name Oct 10, 2023 12:00 AM Laboratory - Chemi stry Order SURGICAL PATH ORDER SURG PATH SPEC. UNKNOWN SP [facility] Lab Results: +/- 30 days of the encounter This section includes the Chemistry and Hematology Lab Results on record with [place] for the patient. Radiology Reports and Pathology Reports are provided separately, in subsequent sections. Lab Results This section contains the Chemistry/Hematology Results that were resulted 30 days before or 30 daysafter the date of the Encounter. Date/Time Source Result Type Result - Unit Interpretation Reference Range Specimen Type Comment Oct 11, 2023 01:27 PM [facility] MICROALBUMIN CREATININE RATIO PANEL URINE Spe cimen Type: URINE No comment entered. Ordering Provider: ALLIE CUELLO Report Released Date/Time: Jul 26, 2023 10:12 AM Reporting Lab: [address] [address] Performing Lab: [address] [place] [address] MICROALBUMIN/CREATININE RATIO 7.1 mg/g 0 -29.9 MICROALBUMIN,QUANTITATIVE 0.8 mg/dL RR U NAVAIL CREATININE URINE 113.29 mg/dL Oct 10, 2023 03:42 PM [facility] LIVER FUNCTION SERUM Specimen Type: SERUM Comment: *BASIC METABOLIC PANEL (fasting) Not Performed: Oct 10, 2023@15:51 b *IMPROVEMENT AUDITOR Reason: dup *LIPID PANEL FASTING Not Performed: Oct 10, 2023@15:51 by [id number] *IMPROVEMENT AUDITOR Reason: dup Ordering Provider: TOÑO CAI Report Released Date/Time: Jun 05, 2023 11:22 AM Reporting Lab: [address] [address] Performing Lab: [address] [address] PROTEIN,TOTAL 6.0 g/dL 6.0-8.3 ALBUMIN 4.2 g/dL 3.5-5.0 ALKALINE PHOSPHATASE 89 U/L 40-150 AST 29 U/L 5-34 ALT 29 U/L BILIRUBIN, TOTAL 1.3 mg/dL H 0.2-1.2 BILIRUBIN, DIRECT 0.5 mg/dL 0-0.5 Oct 10, 2023 03:41 PM [facility] TESTOSTERONE, TOTAL (WHV) SERUM Specimen Type : SERUM No comment entered. Ordering Provider: ALLIE CUELLO Report Released Date/Time: Jul 26, 2023 10:12 AM Reporting Lab: [address] [address] Performing Lab: [address] [address] TESTOSTERONE, TOTAL (V) 755.20 ng/dL 2 20.00-892.00 Oct 10, 2023 03:41 PM [facility] PSA SERUM Specimen Type: SERUM No comment entered. Ordering Provider: ALLIE CUELLO Report Released Date/Time: Jul 26, 2023 10:12 AM Reporting Lab: [address] [place] [address] Performing Lab: [facility] [address] [facility] [address] PSA 4.74 ng/mL H 0.00-4.00 Oct 10, 2023 03:41 PM [facility] HEMOGLOBIN A1C PANEL BLOOD Specimen Type: BLO [...] 2023 10:12 AM Reporting Lab: [facility] [address] [facility] [address] Performing Lab: [facility] [address] HEMOGLOBIN A1C 6.7 H 4.0-5.6 Oct 10, 2023 03:41 PM [facility] LIPID PANEL FASTING SERUM Specimen Type: SERU M No comment entered. Ordering Provider: ALLIE CUELLO Report Released Date/Time: Jul 26, 2023 10:12 AM Reporting Lab: [facility] [address] [facility] [address] Performing Lab: [facility] [address] [facility] [address] CHOLESTEROL 96 mg/dL TRIGLYCERIDE 101 mg/dL 0-150 LDL calculated 44 mg/dL 0-129 CHOL/HDL 3.0 HDL CHOLESTEROL 32 mg/dL L 40-60 Oct 10, 2023 03:41 PM [facility] CBC BLOOD Specimen Type: BLOOD No comment entered. Ordering Provider: ALLIE CUELLO Report Released Date/Time: Jul 26, 2023 10:12 AM Reporting Lab: [facility] [address] [address] Performing Lab: [facility] [address] WBC 5.42 10*3/uL 4.50-11.00 RBC 4.87 10*6/uL 4.23-5.66 HGB 12.5 g/dL L 12.8-17 HCT 39.4 39.2-50.4 MCV 80.9 fL L 82-99 MCHC 31.7 g/dL 30.8-35.1 PLT 123 10*3/uL L 140-360 RDW-CV 14.7 12.0-16.0 MCH 25.7 pg L 26.2-32.6 Oct 10, 2023 03:41 PM [facility] CALCIUM SERUM Specimen Type: SERUM No comment entered. Ordering Provider: ALLIE CUELLO Report Released Date/Time: Oct 10, 2023 07:35 AM Reporting Lab: [address] [address] Performing Lab: [address] [address] CALCIUM 9.1 mg/dL 8.5-10.2 Oct 10, 2023 03:41 PM [facility] VITAMIN D (25-OH) SERUM Specimen Type: SERUM No comment entered. Ordering Provider: ALLIE CUELLO Report Released Date/Time: Oct 10, 2023 07:35 AM Reporting Lab: [address] [address] Performing Lab: [address] [address] VITAMIN D (25-OH) 41 ng/mL 20-50 Oct 10, 2023 03:41 PM [facility] BASIC METABOLIC PANEL (fasting) SERUM Specime n Type: SERUM No comment entered. Ordering Provider: ALLIE CUELLO Report Released Date/Time: Jul 26, 2023 10:12 AM Reporting Lab: [address] [address] Performing Lab: [address] [address] UREA NITROGEN 22 mg/dL 7-25 GLUCOSE 172 [...] and tobacco- related health factors from the [place] facility where the Encounter took place. Current Smoking Status This section includes the most current smoking, or tobacco-related health factor, from the [place] facility where the Encounter took place. Date/Time Current Smoking Status Comment [facility] Jun 05, 2023 11:00 AM [place]-TOBACCO QUIT 15 YRS OR MORE [place] [facility] [place] [facility] Tobacco Use History This section includes a history of the smoking, or tobacco-related health factors, that were collected on or before the date of the Encounter. The data comes from the [place] facility where the Encounter took place. Date/Time Smoking Status/Tobac co Use Comment [facility] Jun 05, 2023 11:00 AM [place]-TOBACCO QUIT 15 YRS OR MORE [place] [facility] [place] [facility] Jun 06, 2022 01:00 PM VA-TOBACCO FORMER USER [place] [facility] [place] [facility] Jun 06, 2022 01:00 PM VA-TOBACCO QUIT 15 YRS OR MORE [place] [facility] [place] [facility] Jun 30, 2021 02:37 PM VA-TOBACCO FORMER USER [place] [facility] [place] [facility] Jun 30, 2021 02:37 PM VA-TOBACCO QUIT 5 TO < 15 YRS [place] [facility] [place] [facility] May 22, 2020 03:30 PM VA-TOBACCO NEVER USED [place] [facility] [place] [facility] May [...] TOBACCO USE > 7 YEARS AGO [facility] Sep 18, 2015 11:24 AM QUIT TOBACCO USE > 7 YEARS AGO stopped 50 years ago [facility] May 19, 2005 08:01 AM HISTORY OF SMOKING [facility] May 31, 2004 01:02 PM HISTORY OF SMOKING [facility] Jun 04, 2003 07:57 AM HISTORY OF SMOKING [facility]N [facility] Jun 03, 2002 01:11 PM HISTORY OF SMOKING [facility] Jun 03, 2002 01:11 PM QUIT TOBACCO USE > 7 YEARS AGO [facility] Advance Directives: All historical and current Section [...] 2023 ADVANCE DIRECTIVE MARYANNEJUAN ALBERTO CARNESJENNIFER A [facility] Pathology Reports: +/- 30 days of the [...] comes from all [place] treatment facilities. Date/Time Pathology Report Provider Source Oct 12, 2023 10:54 AM LR SURGICAL PATHOLOGY REPORT: LOCAL TITLE: LR SURGICAL PATHOLOGY REPORT STANDARD TITLE: PATHOLOGY DIAGNOSTIC STUDY REPORT DATE OF NOTE: OCT 12, 2023@10:54:23 ENTRY DATE: OCT 12, 2023@10:54:23 AUTHOR: LESTER ANDERSON MD EXP COSIGNER: URGENCY: STATUS: COMPLETED $APHDR Reporting Lab: [facility] [CLIA# [id number]] [address] [place] [id number] - - - - - - - [...] - - - PATHOLOGY REPORT Accession No. [facility] 24 174 - - - - [...] - - - PATHOLOGY REPORT Accession No. [facility] 24 174 - - - - - - - - - - - - - - - - - - - - - - - - - - - - - - - - - - - - - - - - Gross description: [facility] 4758;A;1;Nisa SHEPHERD This is a [facility] case number [facility] [id number]. Received in formalin is [...] lateral and deep tissue margins. CPT codes 33310e5 /es/ LESTER ANDERSON MD Board Certified Dermatopathologist Signed Oct 12, 2023@10:54 Performing Laboratory: Surgical Pathology Report Performed By: [facility] [CLIA# [id number]] [address] [place] [phone] $FTR - - - - - - [...] - - BEBO SHEPHERD STANDARD FORM 515 ID:[id number] SEX:M :1940 AGE: 83 LOC:CWM/NO/CVT/DERMATOLOGY/N P PCP: RUBY Long /thomas/ LESTER ANDERSON MD Board Certified Dermatopathologist Signed: 10/12/2023 10:54 LESTER ANDERSON MD [place] [facility] [place] [facility] Encounter Notes: All associated encounter notes This section contains the clinical notes associated to the Encounter. Date/Time Encounter Note(s) Provider Source Oct 16, 2023 08:28 AM ADDENDUM: LOCAL TITLE: Addendum STANDARD TITLE: ADDENDUM DATE OF NOTE: OCT 16, 2023@08:28:56 ENTRY DATE: OCT 16, 2023@08:28:57 AUTHOR: VEGA PENA EXP COSIGNER: URGENCY: STATUS: COMPLETED DERM PROGRAMMING INTERNSHIP - Please notify that his recent biopsy revealed a benign (non-cancerous) lesion called seborrheic keratoses to his RIGHT TEMPORAL SCALP and no further intervention is required. His UPPER FOREHEAD biopsy returned as (at least) a pre-cancerous lesion called actinic keratosis, we will use liquid nitrogen to treat this lesion at next follow up, sooner if needed. LAB SURGICAL PATHOLOGY Collected: 10/10/2023 13:00Acc:[facility] 174 Surgeon/Physician: VEGA PENA Specimen: SKIN OF CENTRAL UPPER FOREHEAD SKIN OF R TEMPORAL SCALP Brief Clinical Hx: SP SPECIMEN A: CENTRAL UPPER FOREHEAD 1CM ERYTHERMATOUS PAPULE SPECIMEN B: R TEMPORAL SCALP 3CM HYPERPIGMENTED PLAQUE Gross Description: [facility] 24 [id number];A;1;Nisa SHEPHERD This is a [facility] case number [facility] [id number]. Received in [...] lateral and deep tissue margins. CPT codes 73808k1 /es/ VEGA PENA DNP, STRATEGIC PLANNING CONSULTANT-C NURSE PRACTITIONER Signed: 10/16/2023 08:30 Receipt Acknowledged By: 10/23/2023 11:56 /es/ TODD GALLOWAY LPN LPN --- Original Document --- 10/10/23 DERMATOLOGY CLINIC [...] central forehead that scabs and doesn't heal. [place] denies any other new/changing/bleeding/non-he aling lesions. REVIEW [...] lesion and indication for the biopsy with PROGRAMMING INTERNSHIP Galloway -Biopsy sites were swabbed with alcohol. [...] on biopsy results. #Seborrheic Keratoses, Irritated -The was educated regarding [...] as prescribed RTC 6m, sooner PRN * [place] educated to RTC ivanna if any new, [...] this [facility] (local) and dispensed from another [place] or [place] facility (remote) as well as [...] Remote Allergy/ADR Data available for this patient [place] [facility] [place] [facility] METFORMIN [place] [facility] [place] [facility]IN [facility] [place] [facility] ZOSYN Med Recon NoGlossary (Tool #1) INCLUDED IN THIS LIST: Alphabetical list of active outpatient prescriptions dispensed from this [place] (local) and dispensed from another [place] or [place] facility (remote) as well as [...] the patient into personal health records (i.e. [employer]) are NOT included in this list. Non-VA medications documented outside this [place], remote inpatient orders (regardless of status) and [...] ONE-HALF TABLET BY MOUTH ONCE DAILY Rx# [id number] Last Released: 10/06/23 Qty/Days Supply: 45 Rx Expiration Date: 04/26/24 Refills Remainin Indication: FOR HIGH CHOLESTEROL OUTPT CALCIUM 200MG (CA CITRATE-950MG) TAB (Status = Active) TAKE FOUR TABLETS BY MOUTH TWICE DAILY Rx# [id number] Last Released: 10/04/23 Qty/Days Supply: Rx Expiration Date: 04/26/24 Refills Remainin Indication: FOR OSTEOPOROSIS Non-VA CHOLECALCIF 50MCG (D3-2,000UNIT) TAB TAKE ONE TABLET BY MOUTH ONCE DAILY Aug 11, 2020 Non-VA medication not recommended by VA provider. OUTPT CITALOPRAM HYDROBROMIDE 20MG TAB (Status = Discontinued) TAKE ONE-HALF TABLET BY MOUTH ONCE DAILY FOR MOOD Rx# [id number] Last Released: 07/21/23 Qty/Days Supply: Rx Expiration Date: 09/29/23 Refills Remainin Indication: FOR MAJOR DEPRESSIVE DISORDER OUTPT CITALOPRAM HYDROBROMIDE 20MG TAB (Status = Active/Suspended) TAKE ONE-HALF TABLET BY MOUTH ONCE DAILY FOR MOOD Rx# [id number] Last Released: Qty/Days Supply: Rx Expiration Date: [...] BY MOUTH THREE TIMES A DAY Rx# [id number] Last Released: 07/21/23 Qty/Days Supply: 270/ Rx Expiration Date: 10/09/23 Refills Remainin OUTPT HYDROXYCHLOROQUINE SULFATE 200MG TAB (Status = Active) TAKE ONE TABLET BY MOUTH ONCE DAILY Rx# [id number] Last Released: 04/20/23 Qty/Days Supply: 90 Rx Expiration Date: 02/11/24 Refills Remainin OUTPT INSULIN,ASPART,HUMAN 100 UNIT/ML INJ (Status = Active) INJECT 80 UNITS SUBCUTANEOUSLY EVERY DAY DIRECTED FOR USE WITH CONTINUOUS SUBCUTANEOUS INSULIN INFUSION DEVICE Rx# [id number] Last Released: 08/02/23 Qty/Days Supply: Rx Expiration Date: 04/17/24 Refills Remainin OUTPT KETOCONAZOLE 2% CREAM (Status = Active) APPLY A THIN LAYER TOPICALLY TWICE DAILY RASH APPLY TO AFFECTED AREAS ON FACE TWICE DAILY FOR 4 WEEKS, THEN NEEDED Rx# [id number] Last Released: 07/21/23 Qty/Days Supply: 12030 Rx Expiration Date: 07/13/24 Refills Remainin Indication: RASH OUTPT KETOCONAZOLE 2% SHAMPOO (Status = Active) SHAMPOO SMALL AMOUNT TOPICALLY TWICE A WEEK NEEDED APPLY FOR 8 WEEKS, THEN NEEDED Rx# [id number] Last Released: 07/21/23 Qty/Days Supply: 30 Rx Expiration Date: 07/13/24 Refills Remainin Indication: SCALP RASH Non-VA LOSARTAN 100MG TAB TAKE ONE TABLET BY MOUTH DAILY OUTPT MULTIVIT/OPHTH AREDS2/LUTE/ZEAX CAP/TAB (Status = Active) TAKE 1 CAPSULE BY MOUTH TWICE DAILY IN THE MORNING AND EVENING, WITH FOOD Rx# [id number] Last Released: 07/05/23 Qty/Days Supply: 120/60 Rx Expiration Date: 03/29/24 Refills Remainin Non-VA OMEPRAZOLE 20MG EC CAP TAKE 1 CAPSULE BY MOUTH EVERY DAY Non-VA PILOCARPINE HCL 5MG TAB TAKE ONE TABLET BY MOUTH TWICE DAILY Dec 04, 2020 Non-VA medication not recommended by VA provider. OUTPT PREDNISONE 10MG TAB (Status = Active) TAKE ONE TABLET BY MOUTH ONCE DAILY Rx# [id number] Last Released: 02/08/23 Qty/Days Supply: 60/60 Rx Expiration Date: 12/08/23 Refills Remainin OUTPT PREDNISONE 1MG TAB (Status = Active) TAKE ONE TABLET BY MOUTH ONCE DAILY Rx# [id number] Last Released: 10/04/23 Qty/Days Supply: 60/60 Rx Expiration Date: 06/21/24 Refills Remainin OUTPT PREDNISONE 5MG TAB (Status = ) TAKE 1 TABLET (5 MG) BY MOUTH ONCE DAILY IN COMBINATION WITH 1MG TABLETS TO TAKE 9 MG DAILY FOR 2 WEEKS, THEN REDUCE BY 1 MG EVERY 2 WEEKS Rx# [id number] Last Released: 05/04/23 Qty/Days Supply: Rx Expiration Date: 07/31/23 Refills Remainin OUTPT TAMSULOSIN HCL 0.4MG CAP (Status = Discontinued) TAKE ONE CAPSULE BY MOUTH AT BEDTIME FOR ENLARGED PROSTATE Rx# [id number] Last Released: 09/13/23 Qty/Days Supply: Rx Expiration Date: 04/12/24 Refills Remainin Indication: FOR ENLARGED PROSTATE OUTPT TAMSULOSIN HCL 0.4MG CAP (Status = Active/Suspended) TAKE ONE CAPSULE BY MOUTH AT BEDTIME FOR ENLARGED PROSTATE Rx# [id number] Last Released: Supply: Rx Expiration Date: 10/10/24 Refills Remainin Indication: FOR ENLARGED PROSTATE OUTPT TESTOSTERONE CYP 200MG/ML 1ML IN OIL (Status = Discontinued) INJECT 0.3ML (60MG) INTRAMUSCULARLY EVERY 7 DAYS FOR LOW TESTOSTERONE Rx# [id number] Last Released: 07/10/23 Qty/Days Supply: 10/14 Rx Expiration Date: 10/28/23 Refills Remainin Indication: FOR LOW TESTOSTERONE OUTPT TESTOSTERONE CYP 200MG/ML 1ML IN OIL (Status = Active) INJECT 0.3ML (60MG) INTRAMUSCULARLY EVERY 7 DAYS FOR LOW TESTOSTERONE Rx# [id number] Last Released: 10/09/23 Qty/Days Supply: 10/14 Rx Expiration Date: 01/26/24 Refills Remainin Indication: FOR LOW TESTOSTERONE OUTPT TOCILIZUMAB 162MG/0.9ML INJ SYR 0.9ML (Status = Discontinued) INJECT 162MG SUBCUTANEOUSLY EVERY 2 WEEKS Rx# [id number] Last Released: 08/02/23 Qty/Days Supply: 08/16 Rx Expiration Date: 06/07/24 Refills Remainin OUTPT TOCILIZUMAB 162MG/0.9ML INJ SYR 0.9ML (Status = Active) INJECT 162MG SUBCUTANEOUSLY EVERY 2 WEEKS Rx# [id number] Last Released: 09/28/23 Qty/Days Supply: 08/16 Rx Expiration Date: 08/28/24 Refills Remainin SUPPLIES OUTPT ALCOHOL PREP PAD (Status = ) USE 1 PAD TOPICALLY EVERY 7 DAYS TO CLEAN SKIN FOR INJECTION ETC Rx# [id number] Last Released: 05/05/23 Qty/Days Supply: Rx Expiration Date: 07/26/23 Refills Remainin OUTPT NEEDLE 18G 1IN (Status = Active) USE 1 NEEDLE EVERY 7 DAYS FOR INJECTION Rx# [id number] Last Released: 07/21/23 Qty/Days Supply: Rx Expiration Date: 04/27/24 Refills Remainin OUTPT NEEDLE 23G 1IN (Status = Active) USE 1 NEEDLE EVERY 7 DAYS FOR INJECTION Rx# [id number] Last Released: 07/20/23 Qty/Days Supply: Rx Expiration Date: 04/27/24 Refills Remainin OUTPT SYRINGE 1ML LUER LOCK TIP (Status = Active) USE 1 SYRINGE EVERY 7 DAYS Rx# [id number] Last Released: 07/13/23 Qty/Days Supply: Rx Expiration Date: 04/27/24 Refills Remainin OUTPT SYRINGE 2.5-3ML/NDL 22G 1.5IN SAFETY (Status = ) USE 1 SYRINGE EVERY THIRD DAY Rx# [id number] Last Released: 04/27/23 Qty/Days Supply: Rx Expiration Date: 07/25/23 Refills Remainin /thomas/ VEGA PENA DNP, STRATEGIC PLANNING CONSULTANT-C NURSE PRACTITIONER Signed: 10/10/2023 15:11 10/19/2023 ADDENDUM STATUS: COMPLETED VM left to return call for biopsy results. /thomas/ TODD GALLOWAY LPN LPN Signed: 10/19/2023 08:48 VEGA PENA [place] [facility] Oct 10, 2023 02:41 PM DERMATOLOGY OUTPATIENT [...] central forehead that scabs and doesn't heal. [place] denies any other new/changing/bleeding/non-he aling lesions. REVIEW [...] scaling noted to bilateral nasolabial folds, and jnesen --lesions of concern: -A-upper central forehead 1 [...] lesion and indication for the biopsy with PROGRAMMING INTERNSHIPPramod PastranaGalloway -Biopsy sites were swabbed with alcohol. -Anesthesia [...] on biopsy results. #Seborrheic Keratoses, Irritated -The [place] was educated regarding the benign nature, but given irritation/pain, destructive treatment requested. -Liquid nitrogen cryotherapy performed as a destructive method. -Liquid nitrogen (2 cycles x 5-8sec) x #4 lesions performed. -Side effects including but not limited to redness, crusting, swelling, blistering, scarring, and hypopigmentation discussed. -Wound care discussed in length. #Seborrheic Keratoses: -The [place] was educated regarding the benign nature, but [...] as prescribed RTC 6m, sooner PRN * [place] educated to RTC ivanna if any new, [...] of active outpatient prescriptions dispensed from this [place] (local) and dispensed from another [place] or [facility] facility (remote) as well as inpatient orders [...] list may not be complete. Please check [employer]. Allergies/ADRs (Tool #5) FACILITY ALLERGY/ADR -------- No Remote Allergy/ADR Data available for this patient [facility] [place] [place] [facility] Med Recon NoGlossary (Tool #1) INCLUDED IN THIS LIST: Alphabetical list of active outpatient prescriptions dispensed from this [place] (local) and dispensed from another [place] or [facility] facility (remote) as well as inpatient orders (local pending and active), local clinic medications, locally documented non-VA medications, and local prescriptions that have or been discontinued in the past 90 days. Non-VA Meds Last Documented On: Oct 09, 2023 NOTE The display of VA prescriptions dispensed from another [place] or [facility] facility (remote) is limited to active outpatient prescription entries matched to National Drug File at the originating site and may not include some items such as investigational drugs, compounds, etc. NOT INCLUDED IN THIS LIST: Medications self-entered by the patient into personal health records (i.e. [employer]) are NOT included in this list. Non-VA [...] ONE-HALF TABLET BY MOUTH ONCE DAILY Rx# [id number] Last Released: 10/06/23 Qty/Days Supply: 45 Rx Expiration Date: 04/26/24 Refills Remainin Indication: FOR HIGH CHOLESTEROL OUTPT CALCIUM 200MG (CA CITRATE-950MG) TAB (Status = Active) TAKE FOUR TABLETS BY MOUTH TWICE DAILY Rx# [id number] Last Released: 10/04/23 Qty/Days Supply: 720/90 Rx Expiration Date: 04/26/24 Refills Remainin Indication: FOR OSTEOPOROSIS Non-VA CHOLECALCIF 50MCG (D3-2,000UNIT) TAB TAKE ONE TABLET BY MOUTH ONCE DAILY Aug 11, 2020 Non-VA medication not recommended by VA provider. OUTPT CITALOPRAM HYDROBROMIDE 20MG TAB (Status = Discontinued) TAKE ONE-HALF TABLET BY MOUTH ONCE DAILY FOR MOOD Rx# [id number] Last Released: 07/21/23 Qty/Days Supply: 45 Rx Expiration Date: 09/29/23 Refills Remainin Indication: FOR MAJOR DEPRESSIVE DISORDER OUTPT CITALOPRAM HYDROBROMIDE 20MG TAB (Status = Active/Suspended) TAKE ONE-HALF TABLET BY MOUTH ONCE DAILY FOR MOOD Rx# [id number] Last Released: Qt Supply: Rx Expiration Date: [...] BY MOUTH THREE TIMES A DAY Rx# [id number] Last Released: 07/21/23 Qty/Days Supply: Rx Expiration Date: 10/09/23 Refills Remainin OUTPT HYDROXYCHLOROQUINE SULFATE 200MG TAB (Status = Active) TAKE ONE TABLET BY MOUTH ONCE DAILY Rx# [id number] Last Released: 04/20/23 Qty/Days Supply: Rx Expiration Date: 02/11/24 Refills Remainin OUTPT INSULIN,ASPART,HUMAN 100 UNIT/ML INJ (Status = Active) INJECT 80 UNITS SUBCUTANEOUSLY EVERY DAY DIRECTED FOR USE WITH CONTINUOUS SUBCUTANEOUS INSULIN INFUSION DEVICE Rx# [id number] Last Released: 08/02/23 Qty/Days Supply: Rx Expiration Date: 04/17/24 Refills Remainin OUTPT KETOCONAZOLE 2% CREAM (Status = Active) APPLY A THIN LAYER TOPICALLY TWICE DAILY RASH APPLY TO AFFECTED AREAS ON FACE TWICE DAILY FOR 4 WEEKS, THEN NEEDED Rx# [id number] Last Released: 07/21/23 Qty/Days Supply: 120 Rx Expiration Date: 07/13/24 Refills Remainin Indication: RASH OUTPT KETOCONAZOLE 2% SHAMPOO (Status = Active) SHAMPOO SMALL AMOUNT TOPICALLY TWICE A WEEK NEEDED APPLY FOR 8 WEEKS, THEN NEEDED Rx# [id number] Last Released: 07/21/23 Qty/Days Supply: 24030 Rx Expiration Date: 07/13/24 Refills Remainin Indication: SCALP RASH Non-VA LOSARTAN 100MG TAB TAKE ONE TABLET BY MOUTH DAILY OUTPT MULTIVIT/OPHTH AREDS2/LUTE/ZEAX CAP/TAB (Status = Active) TAKE 1 CAPSULE BY MOUTH TWICE DAILY IN THE MORNING AND EVENING, WITH FOOD Rx# [id number] Last Released: 07/05/23 Qty/Days Supply: 120/60 Rx Expiration Date: 03/29/24 Refills Remainin Non-VA OMEPRAZOLE 20MG EC CAP TAKE 1 CAPSULE BY MOUTH EVERY DAY Non-VA PILOCARPINE HCL 5MG TAB TAKE ONE TABLET BY MOUTH TWICE DAILY Dec 04, 2020 Non-VA medication not recommended by VA provider. OUTPT PREDNISONE 10MG TAB (Status = Active) TAKE ONE TABLET BY MOUTH ONCE DAILY Rx# [id number] Last Released: 02/08/23 Qty/Days Supply: 60 Rx Expiration Date: 12/08/23 Refills Remainin OUTPT PREDNISONE 1MG TAB (Status = Active) TAKE ONE TABLET BY MOUTH ONCE DAILY Rx# [id number] Last Released: 10/04/23 Qty/Days Supply: 6060 Rx Expiration Date: 06/21/24 Refills Remainin OUTPT PREDNISONE 5MG TAB (Status = ) TAKE 1 TABLET (5 MG) BY MOUTH ONCE DAILY IN COMBINATION WITH 1MG TABLETS TO TAKE 9 MG DAILY FOR 2 WEEKS, THEN REDUCE BY 1 MG EVERY 2 WEEKS Rx# [id number] Last Released: 05/04/23 Qty/Days Supply: Rx Expiration Date: 07/31/23 Refills Remainin OUTPT TAMSULOSIN HCL 0.4MG CAP (Status = Discontinued) TAKE ONE CAPSULE BY MOUTH AT BEDTIME FOR ENLARGED PROSTATE Rx# [id number] Last Released: 09/13/23 Qty/Days Supply: Rx Expiration Date: 04/12/24 Refills Remainin Indication: FOR ENLARGED PROSTATE OUTPT TAMSULOSIN HCL 0.4MG CAP (Status = Active/Suspended) TAKE ONE CAPSULE BY MOUTH AT BEDTIME FOR ENLARGED PROSTATE Rx# [id number] Last Released: QtDays Supply: Rx Expiration Date: 10/10/24 Refills Remainin Indication: FOR ENLARGED PROSTATE OUTPT TESTOSTERONE CYP 200MG/ML 1ML IN OIL (Status = Discontinued) INJECT 0.3ML (60MG) INTRAMUSCULARLY EVERY 7 DAYS FOR LOW TESTOSTERONE Rx# [id number] Last Released: 07/10/23 Qty/Days Supply: 10/14 Rx Expiration Date: 10/28/23 Refills Remainin Indication: FOR LOW TESTOSTERONE OUTPT TESTOSTERONE CYP 200MG/ML 1ML IN OIL (Status = Active) INJECT 0.3ML (60MG) INTRAMUSCULARLY EVERY 7 DAYS FOR LOW TESTOSTERONE Rx# [id number] Last Released: 10/09/23 Qty/Days Supply: 10/14 Rx Expiration Date: 01/26/24 Refills Remainin Indication: FOR LOW TESTOSTERONE OUTPT TOCILIZUMAB 162MG/0.9ML INJ SYR 0.9ML (Status = Discontinued) INJECT 162MG SUBCUTANEOUSLY EVERY 2 WEEKS Rx# [id number] Last Released: 08/02/23 Qty/Days Supply: 08/16 Rx Expiration Date: 06/07/24 Refills Remainin OUTPT TOCILIZUMAB 162MG/0.9ML INJ SYR 0.9ML (Status = Active) INJECT 162MG SUBCUTANEOUSLY EVERY 2 WEEKS Rx# [id number] Last Released: 09/28/23 Qty/Days Supply: 08/16 Rx Expiration Date: 08/28/24 Refills Remainin SUPPLIES OUTPT ALCOHOL PREP PAD (Status = ) USE 1 PAD TOPICALLY EVERY 7 DAYS TO CLEAN SKIN FOR INJECTION ETC Rx# [id number] Last Released: 05/05/23 Qty/Days Supply: Rx Expiration Date: 07/26/23 Refills Remainin OUTPT NEEDLE 18G 1IN (Status = Active) USE 1 NEEDLE EVERY 7 DAYS FOR INJECTION Rx# [id number] Last Released: 07/21/23 Qty/Days Supply: Rx Expiration Date: 04/27/24 Refills Remainin OUTPT NEEDLE 23G 1IN (Status = Active) USE 1 NEEDLE EVERY 7 DAYS FOR INJECTION Rx# [id number] Last Released: 07/20/23 Qty/Days Supply: Rx Expiration Date: 04/27/24 Refills Remainin OUTPT SYRINGE 1ML LUER LOCK TIP (Status = Active) USE 1 SYRINGE EVERY 7 DAYS Rx# [id number] Last Released: 07/13/23 Qty/Days Supply: Rx Expiration Date: 04/27/24 Refills Remainin OUTPT SYRINGE 2.5-3ML/NDL 22G 1.5IN SAFETY (Status = ) USE 1 SYRINGE EVERY THIRD DAY Rx# [id number] Last Released: 04/27/23 Qty/Days Supply: Rx Expiration Date: 07/25/23 Refills Remainin /thomas/ VEGA PENA DNP, STRATEGIC PLANNING CONSULTANT-C NURSE PRACTITIONER Signed: 10/10/2023 15:11 10/16/2023 ADDENDUM STATUS: COMPLETED DERM PROGRAMMING INTERNSHIP - Please notify that his recent biopsy revealed a benign (non-cancerous) lesion called seborrheic keratoses to his RIGHT TEMPORAL SCALP and no further intervention is required. His UPPER FOREHEAD biopsy returned as (at least) a pre-cancerous lesion called actinic keratosis, we will use liquid nitrogen to treat this lesion at next follow up, sooner if needed. LAB SURGICAL PATHOLOGY Collected: 10/10/2023 13:00Acc:[facility] [id number] Surgeon/Physician: VEGA PENA Specimen: SKIN OF CENTRAL UPPER FOREHEAD SKIN OF R TEMPORAL SCALP Brief Clinical Hx: SP 24 174 SPECIMEN A: CENTRAL UPPER FOREHEAD 1CM ERYTHERMATOUS PAPULE SPECIMEN B: R TEMPORAL SCALP 3CM HYPERPIGMENTED PLAQUE Gross Description: [facility] 24 [id number];A;1;CORA,R [id number]. Received in formalin is a [...] lateral and deep tissue margins. CPT codes 68562f5 /thomas/ VEGA PENA DNP, STRATEGIC PLANNING CONSULTANT-C NURSE PRACTITIONER Signed: 10/16/2023 08:30 Receipt Acknowledged By: 10/23/2023 11:56 /benny GALLOWAY LPN LPN 10/19/2023 ADDENDUM STATUS: COMPLETED VM left to return call for biopsy results. /benny GALLOWAY LPN LPN Signed: 10/19/2023 08:48 10/23/2023 ADDENDUM STATUS: COMPLETED [place] aware of biopsy results and will f/u next visit for treatment. /benny GALLOWAY LPN LPN Signed: 10/23/2023 11:57 VEGA PENA CN[facility]
--- OUTSIDE RECORDS SUMMARY | 2024-10-01 11:26 | XMS_ITS ---
Author Name [facility] Organization [facility] [place] Address [address] [place] [id number] Care Team Providers Care Piano Sounding Board Matcher Name Role Phone TOÑO CAI Primary Care [...] O MEDEX BRONZ E Mar 19, 2004 [id number] HOLLIE SHEPHERD PATIENT [place] MEDIC[place] SUPPLEMEN MASTER MEDEX BRONZ E Mar 19, 2004 [id number] [phone] HOLLIE SHEPHERD PATIENT [place] SUPPLEMEN MASTER MEDEX BRONZ E Mar 19, 2004 [id number] [phone] HOLLIE SHEPHERD PATIENT BCBS [facility] MEDICARE SUPPLEMEN MASTER PSUED O MEDEX BRONZ E Mar 19, 2004 [id number] [phone] HOLLIE SHEPHERD PATIENT MEDICARE (WNR) MEDICARE (M) PART B Mar 19, 2004 PART B [id number] CORAHOLLIE SILVA PATIENT MEDICARE (WNR) MEDICARE (M) PART B Mar 19, 2004 PART B [id number] CORAHOLLIE SILVA ALD PATIENT MEDICARE (WNR) MEDICARE (M) PART B Mar 19, 2004 PART B [id number] CORAHOLLIE SILVA ALD PATIENT MEDICARE (WNR) MEDICARE (M) PART A Feb 17, 2003 PART A [id number] CORAHOLLIE ALD PATIENT MEDICARE (WNR) MEDICARE (M) PART A Feb 17, 2003 PART A [id number] [phone] CORAHOLLIE SILVA ALD PATIENT MEDICARE (WNR) MEDICARE (M) PART A Feb 17, 2003 PART A [id number] [phone] CORAHOLLIE SILVA PATIENT MEDICARE (WNR) MEDICARE (M) PART A Feb 17, 2003 PART A [id number] CORAHOLLIE SILVA PATIENT MEDICARE (WNR) MEDICARE (M) PART B Feb 17, 2003 PART B [id number] [phone] CORAHOLLIE SILVA PATIENT MEDICARE (WNR) MEDICARE (M) PART A Feb 17, 2003 PART A [id number] [phone] HOLLIE SHEPHERD PATIENT MEDICARE (WNR) MEDICARE (M) PART B Feb 17, 2003 PART B [id number] HOLLIE SHEPHERD PATIENT Selected Encounter This section includes the information on record at AL for the Encounter. Date/Time Encounter Type Encounter Description Reason Provider Source November 01, 2023 11:15 AM OFF/OP EST OCTOBER X REQ PHY/QHP PRIMARY CARE/MEDICINE ICD-10-CM Z04.9 Encounter for examination and observation for unsp reason URI TALBOT [facility] Encounter Template Text not used by [place] Assessments - Encounter Diagnoses This section includes the primary and secondary diagnoses documented for the Encounter. Date/Time Primary/Secondary Diagnosis Diagnosis Name Provider Source Nov 24, 2023 03:44 PM PRIMARY Encounter for examination and observation for unsp reason URI TALBOT [facility] [place] [facility] [place] [facility] Nov 24, 2023 03:44 PM SECONDARY Counseling, unspecified URI TALBOT [facility] [place] [facility] Nov 24, 2023 03:44 PM SECONDARY Encounter for change or removal of nonsurg wound dressing URI TALBOT [facility] [place] [facility] Plan of Treatment: Future Appointments (+ 6 months) and Future Tests (+/- 45 days) The Plan of Treatment section includes future care activities for the patient from all [place] [facility]. This section includes future appointments [...] - MEDICINE [facility] C [facility] [place] [facility] November 02, 2023 11:30 AM AMBULATORY - MEDICINE [facility] [place] [facility] November 06, 2023 02:50 PM AMBULATORY - MEDICINE [place] [facility] [place] [facility] Nov 22, 2023 10:00 AM AMBULATORY - MEDICINE [place] [facility] [place] [facility] Nov 27, 2023 02:00 PM AMBULATORY - MEDICINE [facility] C [facility] [place] [facility] Feb 12, 2024 10:00 AM AMBULATORY - MEDICINE [place] [facility] [place] [facility] Feb 28, 2024 01:00 PM AMBULATORY - [place]RY [place] [facility] Feb 28, 2024 01:00 PM AMBULATORY - PSYCHIATRY [place] [facility] [place] [facility] Mar 25, 2024 10:00 AM AMBULATORY - MEDICINE [facility] C [facility] [place] [facility] Mar 25, 2024 10:30 AM AMBULATORY - MEDICINE [facility] [place] [facility] Apr 02, 2024 02:00 PM AMBULATORY - MEDICINE [facility] [place] [facility] Apr 04, 2024 02:00 PM AMBULATORY - MEDICINE [facility] [place] [facility] Apr 08, 2024 01:00 PM AMBULATORY - REHAB MEDICIN E [place] [facility] [place] [facility] Apr 12, 2024 09:45 AM AMBULATORY - MEDICINE [facility] C [facility] Apr 16, 2024 10:00 AM [facility] May 02, 2024 10:00 AM AMBULATORY - REHAB MEDICIN E [facility] Active, Pending, and Scheduled Orders This section includes a listing of several types of active, pending, and scheduled orders, including clinic medications orders, diagnostic test orders, procedure orders and consult orders; where the start date of the order is 45 days before the date of the Encounter or 45 days after the date of theEncounter. The data comes from all [place] treatment facilities. Test Date/Time Test Type Test Details Facility Name Oct 10, 2023 12:00 AM Laboratory - Chemi stry Order SURGICAL PATH ORDER SURG PATH SPEC. UNKNOWN SP [facility] Lab Results: +/- 30 days of the encounter This section includes the Chemistry and Hematology Lab Results on record with [place] for the patient. Radiology Reports and Pathology Reports are provided separately, in subsequent sections. Lab Results This section contains the Chemistry/Hematology Results that were resulted 30 days before or 30 daysafter the date of the Encounter. Date/Time Source Result Type Result - Unit Interpretation Reference Range Specimen Type Comment Oct 11, 2023 01:27 PM [facility] MICROALBUMIN CREATININE RATIO PANEL URINE Spe cimen Type: URINE No comment entered. Ordering Provider: ALLIE CUELLO Report Released Date/Time: Jul 26, 2023 10:12 AM Reporting Lab: [facility] [address] [facility] [address] Performing Lab: [facility] [address] [facility] [address] MICROALBUMIN/CREATININE RATIO 7.1 mg/g 0 -29.9 MICROALBUMIN,QUANTITATIVE 0.8 mg/dL RR U NAVAIL CREATININE URINE 113.29 mg/dL Oct 10, 2023 03:42 PM [facility] LIVER FUNCTION SERUM Specimen Type: SERUM Comment: *BASIC METABOLIC PANEL (fasting) Not Performed: Oct 10, 2023@15:51 b *HANDICRAFTS TEACHER Reason: dup *LIPID PANEL FASTING Not Performed: Oct 10, 2023@15:51 by [id number] *HANDICRAFTS TEACHER Reason: dup Ordering Provider: TOÑO CAI Report Released Date/Time: Jun 05, 2023 11:22 AM Reporting Lab: [address] [address] Performing Lab: [address] [address] PROTEIN,TOTAL 6.0 g/dL 6.0-8.3 ALBUMIN 4.2 g/dL 3.5-5.0 ALKALINE PHOSPHATASE 89 U/L 40-150 AST 29 U/L 5-34 ALT 29 U/L BILIRUBIN, TOTAL 1.3 mg/dL H 0.2-1.2 BILIRUBIN, DIRECT 0.5 mg/dL 0-0.5 Oct 10, 2023 03:41 PM [facility] TESTOSTERONE, TOTAL (WHV) SERUM Specimen Type : SERUM No comment entered. Ordering Provider: ALLIE CUELLO Report Released Date/Time: Jul 26, 2023 10:12 AM Reporting Lab: [address] [address] Performing Lab: [address] [address] TESTOSTERONE, TOTAL (WHV) 755.20 ng/dL 2 20.00-892.00 Oct 10, 2023 03:41 PM [facility] PSA SERUM Specimen Type: SERUM No comment entered. Ordering Provider: ALLIE CUELLO Report Released Date/Time: Jul 26, 2023 10:12 AM Reporting Lab: [address] [address] Performing Lab: [address] [address] PSA 4.74 ng/mL H 0.00-4.00 Oct 10, 2023 03:41 PM [facility] HEMOGLOBIN A1C PANEL BLOOD Specimen Type: [...] 10:12 AM Reporting Lab: [facility] [address] [facility] [address] Performing Lab: [facility] [address] [address] HEMOGLOBIN A1C 6.7 H 4.0-5.6 Oct 10, 2023 03:41 PM [facility] LIPID PANEL FASTING SERUM Specimen Type: SERU M No comment entered. Ordering Provider: ALLIE CUELLO Report Released Date/Time: Jul 26, 2023 10:12 AM Reporting Lab: [facility] [address] [address] Performing Lab: [facility] [address] [address] CHOLESTEROL 96 mg/dL TRIGLYCERIDE 101 mg/dL 0-150 LDL calculated 44 mg/dL 0-129 CHOL/HDL 3.0 HDL CHOLESTEROL 32 mg/dL L 40-60 Oct 10, 2023 03:41 PM [facility] CBC BLOOD Specimen Type: BLOOD No comment entered. Ordering Provider: ALLIE CUELLO Report Released Date/Time: Jul 26, 2023 10:12 AM Reporting Lab: [facility] [address] [address] Performing Lab: [facility] [address] [address] WBC 5.42 10*3/uL 4.50-11.00 RBC 4.87 10*6/uL 4.23-5.66 HGB 12.5 g/dL L 12.8-17 HCT 39.4 39.2-50.4 MCV 80.9 fL L 82-99 MCHC 31.7 g/dL 30.8-35.1 PLT 123 10*3/uL L 140-360 RDW-CV 14.7 12.0-16.0 MCH 25.7 pg L 26.2-32.6 Oct 10, 2023 03:41 PM [facility] CALCIUM SERUM Specimen Type: SERUM No comment entered. Ordering Provider: ALLIE CUELLO Report Released Date/Time: Oct 10, 2023 07:35 AM Reporting Lab: [facility] [address] [facility] [address] Performing Lab: [address] [address] CALCIUM 9.1 mg/dL 8.5-10.2 Oct 10, 2023 03:41 PM [facility] VITAMIN D (25-OH) SERUM Specimen Type: SERUM No comment entered. Ordering Provider: ALLIE CUELLO Report Released Date/Time: Oct 10, 2023 07:35 AM Reporting Lab: [address] [address] Performing Lab: [address] [address] VITAMIN D (25-OH) 41 ng/mL 20-50 Oct 10, 2023 03:41 PM [facility] BASIC METABOLIC PANEL (fasting) SERUM Specime n Type: SERUM No comment entered. Ordering Provider: ALLIE CUELLO Report Released Date/Time: Jul 26, 2023 10:12 AM Reporting Lab: [address] [address] Performing Lab: [address] [address] UREA NITROGEN 22 mg/dL 7-25 GLUCOSE 172 [...] 76 133/77 16 96 2 184 31 [place] [facility] Social History: Smoking Status (Most current) [...] took place. Date/Time Current Smoking Status Comment [facility]ly [facility] it Jun 05, 2023 11:00 AM VA-TOBACCO FORMER USER [place] [facility] [place] [facility] Tobacco Use History This section includes a history of the smoking, or tobacco-related health factors, that were collected on or before the date of the Encounter. The data comes from the [place] facility where the Encounter took place. Date/Time Smoking Status/Tobac co Use Comment Facility Jun 05, 2023 11:00 AM VA-TOBACCO QUIT 15 YRS OR MORE [facility] [place] [facility] Jun 06, 2022 01:00 PM VA-TOBACCO FORMER USER [place] [facility] [place] [facility] Jun 06, 2022 01:00 PM VA-TOBACCO QUIT 15 YRS OR MORE [facility] [place] [facility] Jun 30, 2021 02:37 PM VA-TOBACCO FORMER USER [place] [facility] [place] [facility] Jun 30, 2021 02:37 PM VA-TOBACCO QUIT 5 TO < 15 YRS [place] [facility] [place] [facility] May 22, 2020 03:30 PM VA-TOBACCO NEVER USED [place] [facility] [place] [facility] May 08, 2018 02:03 PM VA-TOBACCO FORMER USER [facility] [place] [facility] May 08, 2018 02:03 PM VA-TOBACCO QUIT 15 YRS OR MORE [facility] [place] [facility] November 10, 2017 02:33 PM QUIT TOBACCO USE > 7 YEARS AGO [facility] [place] [facility] October 21, 2016 01:55 PM QUIT TOBACCO USE > 7 YEARS AGO [facility] [place] [facility] Sep 18, 2015 11:24 AM QUIT TOBACCO USE > 7 YEARS AGO stopped 50 years ago [facility] [place] [facility] May 19, 2005 08:01 AM HISTORY OF SMOKING [facility] May 31, 2004 01:02 PM HISTORY OF SMOKING [facility] Jun 04, 2003 07:57 AM HISTORY OF SMOKING [facility] Jun 03, 2002 01:11 PM HISTORY OF SMOKING [facility] Jun 03, 2002 01:11 PM QUIT TOBACCO USE > 7 YEARS AGO [facility] Advance Directives: All historical and current [...] Jun 02, 2023 ADVANCE DIRECTIVE JENNIFER QUIROS [facility] Pathology Reports: +/- 30 days of [...] comes from all [place] treatment facilities. Date/Time Pathology Report Provider Source Oct 12, 2023 10:54 AM LR SURGICAL PATHOLOGY REPORT: LOCAL TITLE: LR SURGICAL PATHOLOGY REPORT STANDARD TITLE: PATHOLOGY DIAGNOSTIC STUDY REPORT DATE OF NOTE: OCT 12, 2023@10:54:23 ENTRY DATE: OCT 12, 2023@10:54:23 AUTHOR: LESTER ANDERSON MD EXP COSIGNER: URGENCY: STATUS: COMPLETED $APHDR Reporting Lab: [facility] [CLIA# [id number]] [address] [place] [id number] - - - - - - - [...] - - - - Gross description: [facility] 24 6748;A;1;Nisa SHEPHERD [id number]. Received in formalin is a [...] lateral and deep tissue margins. CPT codes 83519d5 /es/ LESTER ANDERSON MD Board Certified Dermatopathologist Signed Oct 12, 2023@10:54 Performing Laboratory: Surgical Pathology Report Performed By: [facility] [CLIA# [id number]] [address] [place] [address] $FTR - - - - - - [...] - - BEBO SHEPHERD STANDARD FORM 515 ID:[id number] SEX:M :1940 AGE: 83 LOC:CWM/NO/CVT/DERMATOLOGY/N P PCP: RUBY Long /thomas/ LESTER ANDERSON MD Board Certified Dermatopathologist Signed: 10/12/2023 10:54 LESTER ANDERSON MD [facility] Encounter Notes: All associated encounter notes [...] identity was verified using two identifiers, per AL Policy: Full Name, Date of BEBO SHEPHERD is a 83 year old who presents to the clinic for dressing change, bursitis Visit Type: Clinic Unscheduled Primary Care Clinic Triage: S: [place] 9 days ago loss of balance and [...] ACTIVE DAILY Since you last saw your AL PC Provider, did you have any of [...] wound healing Provided guidance for worsening symptoms: advised to call facilities AL Clinical Contact Center or seek immediate medical attention for new or worsening symptoms Comment: Appointment Date/Time: 11/01/23 Sick Call provider Patient Education: wound healing, home care instructions. dressing changes. S/S of infection /es/ CAIT TALBOT REGISTERED NURSE Signed: 11/01/2023 13:09 CAIT TALBOT [facility]
--- OUTSIDE RECORDS SUMMARY | 2024-10-01 11:26 | XMS_ITS | Encounter Summary ---
Author Name [facility] [place] Address [address] [place] [id number] Care Team Providers Care Applique Cutter Name Role Phone TOÑO CAI Primary Care [...] [place] MED[place] SUPPLEMEN MASTER PSUED O MEDEX [facility] E Mar 19, 2004 [id number] HOLLIE SHEPHERD PATIENT [place] MED[place] SUPPLEMEN MASTER MEDEX BRON[facility] E Mar 19, 2004 [id number] [phone] HOLLIE SHEPHERD PATIENT [place] SUPPLEMEN MASTER MEDEX BRONZ E Mar 19, 2004 [id number] [phone] HOLLIE SHEPHERD PATIENT BCBS [facility] MEDICARE SUPPLEMEN MASTER PSUED O MEDEX BRONZ E Mar 19, 2004 [id number] HOLLIE SHEPHERD PATIENT MEDICARE (WNR) MEDICARE (M) PART B Mar 19, 2004 PART B [id number] HOLLIE SHEPHERD PATIENT MEDICARE (WNR) MEDICARE (M) PART B Mar 19, 2004 PART B [id number] HOLLIE SHEPHERD PATIENT MEDICARE (WNR) MEDICARE (M) PART B Mar 19, 2004 PART B [id number] [phone] CORAHOLLIE SILVA PATIENT MEDICARE (WNR) MEDICARE (M) PART A Feb 17, 2003 PART A [id number] [phone] CORAHOLLIE SILVA PATIENT MEDICARE (WNR) MEDICARE (M) PART A Feb 17, 2003 PART A [id number] [phone] [id number] HOLLIE SHEPHERD PATIENT MEDICARE (WNR) MEDICARE (M) PART A Feb 17, 2003 PART A [id number] HOLLIE SHEPHERD PATIENT MEDICARE (WNR) MEDICARE (M) PART A Feb 17, 2003 PART A [id number] HOLLIE SHEPHERD PATIENT MEDICARE (WNR) MEDICARE (M) PART B Feb 17, 2003 PART B [id number] [phone] HOLLIE SHEPHERD PATIENT MEDICARE (WNR) MEDICARE (M) PART A Feb 17, 2003 PART A [id number] HOLLIE SHEPHERD PATIENT MEDICARE (WNR) MEDICARE (M) PART B Feb 17, 2003 PART B [id number] HOLLIE SHEPHERD PATIENT Selected Encounter This [...] PRIMARY Age-related osteoporosis w/o current pathological fracture [facility] [place] [facility] Dec 18, 2023 01:23 PM SECONDARY Testicular hypofunction ALLIE CUELLO [place] [facility] [place] [facility] Plan of Treatment: Future Appointments (+ 6 months) and Future Tests (+/- 45 days) The Plan of Treatment section includes future care activities for the patient [facility] [place] [facility] This section includes future appointments and future [...] - MEDICINE [place] [facility] [place] [facility] Feb 28, 2024 01:00 PM AMBULATORY - PS[place]CHIATRY [place] [facility] Feb 28, 2024 01:00 PM AMBULATORY - PSYCHIATRY [place] [facility] [place] [facility] Mar 25, 2024 10:00 AM AMBULATORY - MEDICINE [place] [facility] [place] [facility] Mar 25, 2024 10:30 AM AMBULATORY - MEDICINE [place] [facility] [place] [facility] Apr 02, 2024 02:00 PM AMBULATORY - MEDICINE [place] [facility] [place] [facility] Apr 04, 2024 02:00 PM AMBULATORY - MEDICINE [place] [facility] [place] [facility] Apr 08, 2024 01:00 PM AMBULATORY - REHAB MEDICIN E [facility] [place] [facility] Apr 12, 2024 09:45 AM AMBULATORY - MEDICINE [place] [facility] [place] [facility] Apr 16, 2024 10:00 AM AMBULATORY - REHAB MEDICIN E [facility] [place] [facility] May 02, 2024 10:00 AM AMBULATORY - REHAB MEDICIN E [facility] [place] [facility] May 08, 2024 10:00 AM AMBULATORY - REHAB MEDICIN E [place] [facility] [place] [facility] Vital Signs: All taken on the encounter date This section contains inpatient and outpatient Vital Signs collected on the date of the Encounter. Date/Time Temperature Pulse Blood Pressure Respiratory Rate SP02 Pain Height Weight Body Mass Index Source Nov 27, 2023 02:00 PM 97.9 83 116/67 16 97 2 64.5 176 30 [place] [facility] [place] [facility] Social History: Smoking Status (Most [...] took place. Date/Time Current Smoking Status Comment [facility] Jun 05, 2023 11:00 AM VA-TOBACCO FORMER USER [place] [facility] [place] [facility] Tobacco Use History This section includes a history of the smoking, or tobacco-related health factors, that were collected on or before the date of the Encounter. The data comes from the [place] facility where the Encounter took place. Date/Time Smoking Status/Tobac co Use Comment Facility Jun 05, 2023 11:00 AM VA-TOBACCO QUIT 15 YRS OR MORE [place] [facility] [place] [facility] Jun 06, 2022 01:00 PM VA-TOBACCO FORMER USER [facility] [place] [facility] Jun 06, 2022 01:00 PM VA-TOBACCO QUIT 15 YRS OR MORE [facility] [place] [facility] Jun 30, 2021 02:37 PM VA-TOBACCO FORMER USER [place] [facility] [place] [facility] Jun 30, 2021 02:37 PM VA-TOBACCO QUIT 5 TO < 15 YRS [place] [facility] [place] [facility] May 22, 2020 03:30 PM VA-TOBACCO NEVER USED [place] [facility] [place] [facility] May 08, 2018 02:03 PM VA-TOBACCO FORMER USER [facility] [place] [facility] May 08, 2018 02:03 PM VA-TOBACCO QUIT 15 YRS OR MORE [facility] [place] [facility] November 10, 2017 02:33 PM QUIT TOBACCO USE > 7 YEARS AGO [facility] [place] [facility] October 21, 2016 01:55 PM QUIT TOBACCO USE > 7 YEARS AGO [facility] [place] [facility] Sep 18, 2015 11:24 AM QUIT TOBACCO USE > 7 YEARS AGO stopped 50 years ago [facility] [place] [facility] May 19, 2005 08:01 AM HISTORY OF SMOKING [facility] [place] [facility] May 31, 2004 01:02 PM HISTORY OF SMOKING [facility] Jun 04, 2003 07:57 AM HISTORY OF SMOKING [facility] Jun 03, 2002 01:11 PM HISTORY OF SMOKING [facility] Jun 03, 2002 01:11 PM [...] Jun 02, 2023 ADVANCE DIRECTIVE JENNIFER QUIROS [facility] Encounter Notes: All associated encounter notes This section contains the clinical notes associated to the Encounter. Date/Time Encounter Note(s) Provider Source Nov 26, 2023 04:44 PM PHYSICIAN NOTE: LOCAL TITLE: MD NOTE STANDARD TITLE: PHYSICIAN NOTE DATE OF NOTE: NOV 26, 2023@16:44 ENTRY DATE: NOV 26, 2023@16:44:37 AUTHOR: ALLIE CUELLO COSIGNER: URGENCY: STATUS: COMPLETED CC: Osteoporosis, hypogonadism HPI: Sees a non [place] cell stripper for DM/insulin pump ?. Followed by me [...] Elevated PSA 2. Aortic Valve Disorder (SCT 4056672) 3. Cerebrovascular disease 4. Chronic recurrent major depressive disorder 5. Insulin pump present 6. Hypertension 7. Family history of cancer of colon 8. Testicular hypofunction 9. Osteoporosis 10. Major depressive disorder 11. RA - Rheumatoid arthritis 12. History of colonic polyp 13. Diverticular disease of colon 14. Adjustment disorder 15. Hemorrhoids 16. Polymyalgia Rheumatica 17. Microscopic Hematuria 18. Rosacea 19. Hypertension (SNOMED CT 45880315) 20. Spinal Stenosis * 21. Hyperlipidemia (SNOMED CT 33357322) 22. Osteoarthritis * 23. Lower Back Pain * 24. Vertigo 25. Diabetes mellitus type 2 (SNOMED CT 01947490) 26. Gastroesophageal Reflux Disorder Active Outpatient Medications [...] Remote Allergy/ADR Data available for this patient [facility] [place] [facility] [place] [facility] [place] [facility] ZOSYN Med Recon NoGlossary (Tool [...] the patient into personal health records (i.e. [facility]) are NOT included in this list. Non-VA [...] ONE-HALF TABLET BY MOUTH ONCE DAILY Rx# [id number] Last Released: 10/06/23 Qty/Days Supply: Rx Expiration Date: 04/26/24 Refills Remainin Indication: FOR HIGH CHOLESTEROL OUTPT CALCIUM 200MG (CA CITRATE-950MG) TAB (Status = Active) TAKE FOUR TABLETS BY MOUTH TWICE DAILY Rx# [id number] Last Released: 10/04/23 Qty/Days Supply: Rx Expiration Date: 04/26/24 Refills Remainin Indication: FOR OSTEOPOROSIS OUTPT CALCIUM 200MG (CA CITRATE-950MG) TAB (Status = Pending) TAKE FOUR TABLETS BY MOUTH TWICE DAILY Renewed from Rx# [id number] Qty/Days Supply: Login Date: 11/27/23 Refills Ordered: 3 Non-VA CHOLECALCIF 50MCG (D3-2,000UNIT) TAB TAKE ONE TABLET BY MOUTH ONCE DAILY Aug 11, 2020 Non-VA medication not recommended by VA provider. OUTPT CITALOPRAM HYDROBROMIDE 20MG TAB (Status = Discontinued) TAKE ONE-HALF TABLET BY MOUTH ONCE DAILY FOR MOOD Rx# [id number] Last Released: 07/21/23 Qty/Days Supply: Rx Expiration Date: 09/29/23 Refills Remainin Indication: FOR MAJOR DEPRESSIVE DISORDER OUTPT CITALOPRAM HYDROBROMIDE 20MG TAB (Status = Active/Suspended) TAKE ONE-HALF TABLET BY MOUTH ONCE DAILY FOR MOOD Rx# [id number] Last Released: 10/11/23 Qty/Days Supply: Rx Expiration Date: 10/10/24 Refills Remainin Indication: FOR MAJOR DEPRESSIVE DISORDER Non-VA CYCLOBENZAPRINE HCL 10MG TAB TAKE ONE TABLET BY MOUTH TWICE DAILY OUTPT DENOSUMAB 60MG/ML INJ SYRINGE 1ML (Status = ) INJECT 60MG/1ML SUBCUTANEOUSLY ONE TIME FOR OSTEOPOROSIS Rx# [id number] Last Released: 10/18/23 Qty/Days Supply: 07/18 Rx Expiration Date: 11/17/23 Refills Remainin Indication: FOR OSTEOPOROSIS Non-VA DOCUSATE NA 100MG CAP TAKE 1 CAPSULE BY MOUTH TWICE DAILY Non-VA FUROSEMIDE 20MG TAB TAKE ONE TABLET BY MOUTH ONCE DAILY OUTPT GABAPENTIN 600MG TAB (Status = ) TAKE ONE TABLET BY MOUTH THREE TIMES A DAY Rx# [id number] Last Released: 07/21/23 Qty/Days Supply: Rx Expiration Date: 10/09/23 Refills Remainin OUTPT HYDROXYCHLOROQUINE SULFATE 200MG TAB (Status = Discontinued) TAKE ONE TABLET BY MOUTH ONCE DAILY Rx# [id number] Last Released: 04/20/23 Qty/Days Supply: Rx Expiration Date: 02/11/24 Refills Remainin OUTPT HYDROXYCHLOROQUINE SULFATE 200MG TAB (Status = Discontinued) TAKE ONE TABLET BY MOUTH ONCE DAILY Rx# [id number] Last Released: 10/11/23 Qty/Days Supply: Rx Expiration Date: 10/10/24 Refills Remainin OUTPT INSULIN,ASPART,HUMAN 100 UNIT/ML INJ (Status = Active/Suspended) INJECT 80 UNITS SUBCUTANEOUSLY EVERY DAY DIRECTED FOR USE WITH CONTINUOUS SUBCUTANEOUS INSULIN INFUSION DEVICE Rx# [id number] Last Released: 11/14/23 Qty/Days Supply: Rx Expiration Date: 04/17/24 Refills Remainin OUTPT KETOCONAZOLE 2% CREAM (Status = Active) APPLY A THIN LAYER TOPICALLY TWICE DAILY RASH APPLY TO AFFECTED AREAS ON FACE TWICE DAILY FOR 4 WEEKS, THEN NEEDED Rx# [id number] Last Released: 07/21/23 Qty/Days Supply: 120/30 Rx Expiration Date: 07/13/24 Refills Remainin Indication: RASH OUTPT KETOCONAZOLE 2% SHAMPOO (Status = Active) SHAMPOO SMALL AMOUNT TOPICALLY TWICE A WEEK NEEDED APPLY FOR 8 WEEKS, THEN NEEDED Rx# [id number] Last Released: 07/21/23 Qty/Days Supply: 240/30 Rx Expiration Date: 07/13/24 Refills Remainin Indication: SCALP RASH Non-VA LOSARTAN 100MG TAB TAKE ONE TABLET BY MOUTH DAILY OUTPT MULTIVIT/OPHTH AREDS2/LUTE/ZEAX CAP/TAB (Status = Active) TAKE 1 CAPSULE BY MOUTH TWICE DAILY IN THE MORNING AND EVENING, WITH FOOD Rx# [id number] Last Released: 10/10/23 Qty/Days Supply: 120/60 Rx Expiration Date: 03/29/24 Refills Remainin Non-VA OMEPRAZOLE 20MG EC CAP TAKE 1 CAPSULE BY MOUTH EVERY DAY Non-VA PILOCARPINE HCL 5MG TAB TAKE ONE TABLET BY MOUTH TWICE DAILY Dec 04, 2020 Non-VA medication not recommended by VA provider. OUTPT PREDNISONE 10MG TAB (Status = Active) TAKE ONE TABLET BY MOUTH ONCE DAILY Rx# [id number] Last Released: 02/08/23 Qty/Days Supply: 6060 Rx Expiration Date: 12/08/23 Refills Remainin OUTPT PREDNISONE 1MG TAB (Status = Discontinued) TAKE ONE TABLET BY MOUTH ONCE DAILY Rx# [id number] Last Released: 10/04/23 Qty/Days Supply: 60/60 Rx Expiration Date: 06/21/24 Refills Remainin OUTPT PREDNISONE 1MG TAB (Status = Active) TAKE FOUR TABLETS BY MOUTH ONCE DAILY Rx# [id number] Last Released: 10/17/23 Qty/Days Supply: 12030 Rx Expiration Date: 10/16/24 Refills Remainin OUTPT TAMSULOSIN HCL 0.4MG CAP (Status = Discontinued) TAKE ONE CAPSULE BY MOUTH AT BEDTIME FOR ENLARGED PROSTATE Rx# [id number] Last Released: 09/13/23 Qty/Days Supply: Rx Expiration Date: 04/12/24 Refills Remainin Indication: FOR ENLARGED PROSTATE OUTPT TAMSULOSIN HCL 0.4MG CAP (Status = Active) TAKE ONE CAPSULE BY MOUTH AT BEDTIME FOR ENLARGED PROSTATE Rx# [id number] Last Released: 10/11/23 Qty/Days Supply: Rx Expiration Date: 10/10/24 Refills Remainin Indication: FOR ENLARGED PROSTATE OUTPT TESTOSTERONE CYP 200MG/ML 1ML IN OIL (Status = Discontinued) INJECT 0.3ML (60MG) INTRAMUSCULARLY EVERY 7 DAYS FOR LOW TESTOSTERONE Rx# [id number] Last Released: 10/09/23 Qty/Days Supply: 10/14 Rx Expiration Date: 01/26/24 Refills Remainin Indication: FOR LOW TESTOSTERONE OUTPT TOCILIZUMAB 162MG/0.9ML INJ SYR 0.9ML (Status = Discontinued) INJECT 162MG SUBCUTANEOUSLY EVERY 2 WEEKS Rx# [id number] Last Released: 10/23/23 Qty/Days Supply: 08/16 Rx Expiration Date: 08/28/24 Refills Remainin OUTPT TOCILIZUMAB 162MG/0.9ML INJ SYR 0.9ML (Status = Active) INJECT 162MG SUBCUTANEOUSLY EVERY 2 WEEKS Rx# [id number] Last Released: 11/20/23 Qty/Days Supply: 08/16 Rx Expiration Date: 11/17/24 Refills Remainin SUPPLIES OUTPT NEEDLE 18G 1IN (Status = Active) USE 1 NEEDLE EVERY 7 DAYS FOR INJECTION Rx# [id number] Last Released: 07/21/23 Qty/Days Supply: Rx Expiration Date: 04/27/24 Refills Remainin OUTPT NEEDLE 23G 1IN (Status = Active) USE 1 NEEDLE EVERY 7 DAYS FOR INJECTION Rx# [id number] Last Released: 07/20/23 Qty/Days Supply: Rx Expiration Date: 04/27/24 Refills Remainin OUTPT SYRINGE 1ML LUER LOCK TIP (Status = Active) USE 1 SYRINGE EVERY 7 DAYS Rx# [id number] Last Released: 07/13/23 Qty/Days Supply: Rx Expiration Date: 04/27/24 Refills RemaininYony ramirez/ ALLIE CUELLO MD STAFF PHYSICIAN Signed: 11/27/2023 19:[address] [facility]
--- OUTSIDE RECORDS SUMMARY | 2024-10-01 11:26 | XMS_ITS | Encounter Summary ---
Author Name [place] Address [address] [place] [id number] Care Team Providers Care Manager Social Work Name Role Phone TOÑO CAI Primary Care [...] O MEDEX BRONZ E Mar 19, 2004 [id number] HOLLIE SHEPHERD PATIENT BCBS [place] MEDICARE SUPPLEMEN MASTER MEDEX BRONZ E Mar 19, 2004 [id number] [phone] HOLLIE SHEPHERD PATIENT BCBS [place] MEDICARE SUPPLEMEN MASTER MEDEX BRONZ E Mar 19, 2004 [id number] [phone] HOLLIE SHEPHERD PATIENT BCBS [facility] MEDICARE SUPPLEMEN MASTER PSUED O MEDEX BRONZ E Mar 19, 2004 [id number] [phone] HOLLIE SHEPHERD PATIENT MEDICARE (WNR) MEDICARE (M) PART B Mar 19, 2004 PART B [id number] HOLLIE SHEPHERD PATIENT MEDICARE (WNR) MEDICARE (M) PART B Mar 19, 2004 PART B [id number] CORAHOLLIE SILVA ALD PATIENT MEDICARE (WNR) MEDICARE (M) PART B Mar 19, 2004 PART B [id number] CORA,HOLLIE ALD PATIENT MEDICARE (WNR) MEDICARE (M) PART A Feb 17, 2003 PART A [id number] CORA,HOLLIE ALD PATIENT MEDICARE (WNR) MEDICARE (M) PART A Feb 17, 2003 PART A [id number] CORAHOLLIE SILVA ALD PATIENT MEDICARE (WNR) MEDICARE (M) PART A Feb 17, 2003 PART A [id number] CORAHOLLIE SILVA ALD PATIENT MEDICARE (WNR) MEDICARE (M) PART A Feb 17, 2003 PART A [id number] CORAHOLLIE SILVA ALD PATIENT MEDICARE (WNR) MEDICARE (M) PART B Feb 17, 2003 PART B [id number] CORAHOLLIE SILVA ALD PATIENT MEDICARE (WNR) MEDICARE (M) PART A Feb 17, 2003 PART A [id number] [phone] HOLLIE SHEPHERD ALD PATIENT MEDICARE (WNR) MEDICARE (M) PART B Feb 17, 2003 PART B [id number] [phone] HOLLIE SHEPHERD PATIENT Selected Encounter This section includes the information on record at [place] for the Encounter. Date/Time Encounter Type Encounter Description Reason Pro vider Source IHE Encounter Template Text not used by [place] Advance Directives: All historical and current Section [...] Jun 02, 2023 ADVANCE DIRECTIVE JENNIFER QUIROS [facility]
--- OUTSIDE RECORDS SUMMARY | 2024-10-01 11:26 | XMS_ITS ---
Author Name [facility] [place] Organization [facility] [place] Address [address] [place] [id number] Care Team Providers Care Rn Clinical Resource Name Role Phone TOÑO CAI Primary Care [...] Relationship to Policy Wen [place] SUPPLEMEN MASTER PSUED O MEDEX [facility] E Mar 19, 2004 [id number] [address] PATIENT BCBS [address] MEDICARE SUPPLEMEN MASTER MEDEX [facility] E Mar 19, 2004 [id number] [phone] HOLLIE SHEPHERD PATIENT BCBS CT MEDICARE SUPPLEMEN MASTER MEDEX [facility] E Mar 19, 2004 [id number] [phone] HOLLIE SHEPHERD PATIENT BCBS [facility] MEDICARE SUPPLEMEN MASTER PSUED O MEDEX [place] E Mar 19, 2004 [id number] HOLLIE SHEPHERD PATIENT MEDICARE (WNR) MEDICARE (M) PART B Mar 19, 2004 PART B [id number] HOLLIE SHEPHERD PATIENT MEDICARE (WNR) MEDICARE (M) PART B Mar 19, 2004 PART B [id number] [phone] CORAHOLLIE SILVA ALD PATIENT MEDICARE (WNR) MEDICARE (M) PART B Mar 19, 2004 PART B [id number] [phone] CORAHOLLIE SILVA ALD PATIENT MEDICARE (WNR) MEDICARE (M) PART A Feb 17, 2003 PART A [id number] [phone] CORA,HOLLIE ALD PATIENT MEDICARE (WNR) MEDICARE (M) PART A Feb 17, 2003 PART A [id number] CORAHOLLIE SILVA ALD PATIENT MEDICARE (WNR) MEDICARE (M) PART A Feb 17, 2003 PART A [id number] CORAHOLLIE SILVA PATIENT MEDICARE (WNR) MEDICARE (M) PART A Feb 17, 2003 PART A [id number] CORAHOLLIE SILVA PATIENT MEDICARE (WNR) MEDICARE (M) PART B Feb 17, 2003 PART B [id number] [phone] CORAHOLLIE SILVA PATIENT MEDICARE (WNR) MEDICARE (M) PART A Feb 17, 2003 PART A [id number] [phone] HOLLIE SHEPHERD PATIENT MEDICARE (WNR) MEDICARE (M) PART B Feb 17, 2003 PART B [id number] HOLLIE SHEPHERD PATIENT Selected Encounter This section includes the information on record at [place] for the Encounter. Date/Time Encounter Type Encounter Description Reason Provider Source November 01, 2023 01:30 PM OFFICE O/P EST LOW 20 MIN PRIMARY CARE/MEDICINE ICD-10-CM S41.111A Laceration w/o foreign body of right upper arm, ABDIEL Cavanaugh Mikey Encounter Template Text not used by [place] Assessments - Encounter Diagnoses This section includes the primary and secondary diagnoses documented for the Encounter. Date/Time Primary/Secondary Diagnosis Diagnosis Name Provider Source Nov 24, 2023 03:47 PM PRIMARY Laceration w/o foreign body of right upper arm, ABDIEL Cavanaugh [facility] [place] [facility] Nov 24, 2023 03:47 PM SECONDARY Olecranon bursitis, right elbow ABDIEL DONAHUEH [place] [facility] [place] [facility] Plan of Treatment: Future Appointments (+ [...] 20 appointments. The data comes from all [place] treatment facilities. Appointment Date/Time Appointment Type Appointme nt Facility Name November 02, 2023 11:15 AM AMBULATORY - MEDICINE [facility] [place] [facility] November 02, 2023 11:30 AM AMBULATORY - MEDICINE [facility] [place] [facility] November 06, 2023 02:50 PM AMBULATORY - MEDICINE [facility] [place] [facility] Nov 22, 2023 10:00 AM AMBULATORY - MEDICINE [facility] [place] [facility] Nov 27, 2023 02:00 PM AMBULATORY - MEDICINE [facility] [place] [facility] Feb 12, 2024 10:00 AM AMBULATORY - MEDICINE [facility] [place] [facility] Feb 28, 2024 01:00 PM AMBULATORY [place] [facility] Feb 28, 2024 01:00 PM AMBULATORY - PSYCHIATRY [facility] [place] [facility] Mar 25, 2024 10:00 AM AMBULATORY - MEDICINE [facility] [place] [facility] Mar 25, 2024 10:30 AM AMBULATORY - MEDICINE [facility] [place] [facility] Apr 02, 2024 02:00 PM AMBULATORY - MEDICINE [facility] [place] [facility] Apr 04, 2024 02:00 PM AMBULATORY - MEDICINE [facility] [place] [facility] Apr 08, 2024 01:00 PM AMBULATORY - REHAB MEDICIN E [facility] [place] [facility] Apr 12, 2024 09:45 AM AMBULATORY - MEDICINE [facility] [place] [facility] Apr 16, 2024 10:00 AM AMBULATORY - REHAB MEDICIN E [facility] [place] [facility] May 02, 2024 10:00 AM [facility] Active, Pending, and Scheduled Orders This section includes a listing of several types of active, pending, and scheduled orders, including clinic medications orders, diagnostic test orders, procedure orders and consult orders; where the start date of the order is 45 days before the date of the Encounter or 45 days after the date of theEncounter. The data comes from all [place] treatment facilities. Test Date/Time Test Type Test Details Facility Name Oct 10, 2023 12:00 AM Laboratory - Chemi stry Order SURGICAL PATH ORDER SURG PATH SPEC. UNKNOWN SP [facility] Lab Results: +/- 30 days of the encounter This section includes the Chemistry and Hematology Lab Results on record with [place] for the patient. Radiology Reports and Pathology Reports are provided separately, in subsequent sections. Lab Results This section contains the Chemistry/Hematology Results that were resulted 30 days before or 30 daysafter the date of the Encounter. Date/Time Source Result Type Result - Unit Interpretation Reference Range Specimen Type Comment Oct 11, 2023 01:27 PM [facility] MICROALBUMIN CREATININE RATIO PANEL URINE Spe cimen Type: URINE No comment entered. Ordering Provider: ALLIE CUELLO Report Released Date/Time: Jul 26, 2023 10:12 AM Reporting Lab: [facility] [address] [facility] [address] Performing Lab: [facility] [address] [facility] [address] MICROALBUMIN/CREATININE RATIO 7.1 mg/g 0 -29.9 MICROALBUMIN,QUANTITATIVE 0.8 mg/dL RR U NAVAIL CREATININE URINE 113.29 mg/dL Oct 10, 2023 03:42 PM [facility] LIVER FUNCTION SERUM Specimen Type: SERUM Comment: *BASIC METABOLIC PANEL (fasting) Not Performed: Oct 10, 2023@15:51 b *SPECIALTY MOLDER Reason: dup *LIPID PANEL FASTING Not Performed: Oct 10, 2023@15:51 by [id number] *SPECIALTY MOLDER Reason: dup Ordering Provider: TOÑO CAI Report Released Date/Time: Jun 05, 2023 11:22 AM Reporting [facility] [address] [facility] [facility] [address] Performing Lab: [facility] [address] [address] PROTEIN,TOTAL 6.0 g/dL 6.0-8.3 ALBUMIN 4.2 g/dL 3.5-5.0 ALKALINE PHOSPHATASE 89 U/L 40-150 AST 29 U/L 5-34 ALT 29 U/L BILIRUBIN, TOTAL 1.3 mg/dL H 0.2-1.2 BILIRUBIN, DIRECT 0.5 mg/dL 0-0.5 Oct 10, 2023 03:41 PM [facility] TESTOSTERONE, TOTAL (WHV) SERUM Specimen Type : SERUM No comment entered. Ordering Provider: ALLIE CUELLO Report Released Date/Time: Jul 26, 2023 10:12 AM Reporting Lab: [facility] [address] [address] Performing Lab: [facility] [address] TESTOSTERONE, TOTAL (WHV) 755.20 ng/dL 2 20.00-892.00 Oct 10, 2023 03:41 PM [facility] PSA SERUM Specimen Type: SERUM No comment entered. Ordering Provider: ALLIE CUELLO Report Released Date/Time: Jul 26, 2023 10:12 AM Reporting Lab: [facility] [address] Performing Lab: [facility] [address] PSA 4.74 ng/mL H 0.00-4.00 Oct 10, 2023 03:41 PM [facility] LIPID PANEL FASTING SERUM Specimen Type: SERU M No comment entered. Ordering Provider: ALLIE CUELLO Report Released Date/Time: Jul 26, 2023 10:12 AM Reporting [facility]: [facility] [address] [address] Performing Lab: [facility] [place] [facility] [address] [facility] [address] CHOLESTEROL 96 mg/dL TRIGLYCERIDE 101 mg/dL 0-150 LDL calculated 44 mg/dL 0-129 CHOL/HDL 3.0 HDL CHOLESTEROL 32 mg/dL L 40-60 Oct 10, 2023 03:41 PM [facility] CBC BLOOD Specimen Type: BLOOD No comment entered. Ordering Provider: ALLIE CUELLO Report Released Date/Time: Jul 26, 2023 10:12 AM Reporting Lab: [facility] [address] [facility] [address] Performing Lab: [address] [address] WBC 5.42 10*3/uL 4.50-11.00 RBC 4.87 10*6/uL 4.23-5.66 HGB 12.5 g/dL L 12.8-17 HCT 39.4 39.2-50.4 MCV 80.9 fL L 82-99 MCHC 31.7 g/dL 30.8-35.1 PLT 123 10*3/uL L 140-360 RDW-CV 14.7 12.0-16.0 MCH 25.7 pg L 26.2-32.6 Oct 10, 2023 03:41 PM [facility] HEMOGLOBIN A1C PANEL BLOOD Specimen Type: [...] Jul 26, 2023 10:12 AM Reporting Lab: [facility] [address] [facility] [address] Performing Lab: [address] [address] HEMOGLOBIN A1C 6.7 H 4.0-5.6 Oct 10, 2023 03:41 PM [facility] CALCIUM SERUM Specimen Type: SERUM No comment entered. Ordering Provider: ALLIE CUELLO Report Released Date/Time: Oct 10, 2023 07:35 AM Reporting Lab: [address] [address] Performing Lab: [address] [address] CALCIUM 9.1 mg/dL 8.5-10.2 Oct 10, 2023 03:41 PM [facility] BASIC METABOLIC PANEL (fasting) SERUM Specime n Type: SERUM No comment entered. Ordering Provider: ALLIE CUELLO Report Released Date/Time: Jul 26, 2023 10:12 AM Reporting Lab: [address] [address] Performing Lab: [address] [address] UREA NITROGEN 22 mg/dL 7-25 GLUCOSE 172 mg/dL H 65-100 SODIUM 137 mmol/L 135-145 POTASSIUM 4.0 mmol/L 3.5-5.0 CHLORIDE 101 mmol/L 100-110 CO2 26 meq/L 20-30 CREATININE, Serum 1.26 mg/dL 0.50-1.40 eGFR(CKD-EPI 2020) 56 mL/min L >60 Oct 10, 2023 03:41 PM [facility] VITAMIN D (25-OH) SERUM Specimen Type: SERUM No comment entered. Ordering Provider: ALLIE CUELLO Report Released Date/Time: Oct 10, 2023 07:35 AM Reporting Lab: [address] [address] Performing Lab: [address] [address] VITAMIN D (25-OH) 41 ng/mL 20-50 Vital Signs: All taken on the encounter date This section contains inpatient and outpatient Vital Signs collected on the date of the Encounter. Date/Time Temperature Pulse Blood Pressure Respiratory Rate SP02 Pain Height Weight Body Mass Index Source November 01, 2023 11:33 AM 98.3 76 133/77 16 96 2 184 31 [facility] Social History: Smoking Status (Most current) and Tobacco Use (All prior to encounter date) This section includes the most current, and the historical, smoking and tobacco- related health factors from the [place] facility where the Encounter took place. Current Smoking Status This section includes the most current smoking, or tobacco-related health factor, from the [place] facility where the Encounter took place. Date/Time Current Smoking Status Comment [facility] Jun 05, 2023 11:00 AM VA-TOBACCO FORMER USER [place] [facility] [place] [facility] Tobacco Use History This section includes a history of the smoking, or tobacco-related health factors, that were collected on or before the date of the Encounter. The data comes from the [place] facility where the Encounter took place. Date/Time Smoking Status/Tobac co Use Comment Facility Jun 05, 2023 11:00 AM VA-TOBACCO QUIT 15 YRS OR MORE [place] [facility] [place] [facility] Jun 06, 2022 01:00 PM VA-TOBACCO FORMER USER [place] [facility] [place] [facility] Jun 06, 2022 01:00 PM VA-TOBACCO QUIT 15 YRS OR MORE [facility] [place] [facility] Jun 30, 2021 02:37 PM VA-TOBACCO FORMER USER [place] [facility] [place] [facility] Jun 30, 2021 02:37 PM VA-TOBACCO QUIT 5 TO < 15 YRS [place] [facility] [place] [facility] May 22, 2020 03:30 PM VA-TOBACCO NEVER USED [place] [facility] [place] [facility] May 08, 2018 02:03 PM VA-TOBACCO FORMER USER [facility] [place] [facility] May 08, 2018 02:03 PM VA-TOBACCO QUIT 15 YRS OR MORE [facility] [place] [facility] November 10, 2017 02:33 PM QUIT TOBACCO USE > 7 YEARS AGO [facility] [place] [facility] October 21, 2016 01:55 PM QUIT TOBACCO USE > 7 YEARS AGO [facility] [place] [facility] Sep 18, 2015 11:24 AM QUIT TOBACCO USE > 7 YEARS AGO stopped 50 years ago [facility] [place] [facility] May 19, 2005 08:01 AM HISTORY OF SMOKING [facility] [place] [facility] May 31, 2004 01:02 PM HISTORY OF SMOKING [facility] Jun 04, 2003 07:57 AM HISTORY OF SMOKING [facility] Jun 03, 2002 01:11 PM HISTORY OF SMOKING [facility] Jun 03, 2002 01:11 PM QUIT TOBACCO USE > 7 YEARS AGO [facility] Advance Directives: All historical and current Section Date Range: From patient's date of to the date document was created. This section includes ALL of a patient's completed or amended [place] Advance and Rescinded Directives. The entries below indicate that a directive exists for the patient, but an actual copy is not included with this document. The data comes from all [place] facilities. Date Advance Directives Provider Source Jun 02, 2023 ADVANCE DIRECTIVE MARYANNEJENNIFER CARNES Garcia [facility] Pathology Reports: +/- 30 days of [...] the Encounter. The data comes from all [place] treatment facilities. Date/Time Pathology Report Provider Source Oct 12, 2023 10:54 AM LR SURGICAL PATHOLOGY REPORT: LOCAL TITLE: LR SURGICAL PATHOLOGY REPORT STANDARD TITLE: PATHOLOGY DIAGNOSTIC STUDY REPORT DATE OF NOTE: OCT 12, 2023@10:54:23 ENTRY DATE: OCT 12, 2023@10:54:23 AUTHOR: LESTER ANDERSON MD EXP COSIGNER: URGENCY: STATUS: COMPLETED $APHDR Reporting Lab: [facility] [CLIA# [id number]] [address] [place] [phone] - - - - - - - [...] - - - - - PREOPERATIVE DIAGNOSIS: 24 [id number] SPECIMEN A: R/O SCC SPECIMEN [...] - - - - - Gross description: [facility] 24 [id number];A;1;Nisa SHEPHERD This is a [facility] case number SPATH [id number]. Received [...] lateral and deep tissue margins. CPT codes [id number] /es/ LESTER ANDERSON MD Board Certified Dermatopathologist Signed Oct 12, 2023@10:54 Performing Laboratory: Surgical Pathology Report Performed By: [facility] [CLIA# [id number]] [address] [place] [phone] $FTR - - - - - - [...] - - BEBO SHEPHERD STANDARD FORM 515 ID:[id number] SEX:M :1940 AGE: 83 LOC:CWM/NO/CVT/DERMATOLOGY/N P PCP: RUBY Long /thomas/ LESTER ANDERSON MD Board Certified Dermatopathologist Signed: 10/12/2023 10:54 LESTER ANDERSON MD [facility] Encounter Notes: All associated encounter notes This section contains the clinical notes associated to the Encounter. Date/Time Encounter Note(s) Provider Source November 01, 2023 11:54 AM PHYSICIAN MACHINE WEDGER NOTE: LOCAL TITLE: PA NOTE STANDARD TITLE: PHYSICIAN MACHINE WEDGER NOTE DATE OF NOTE: NOVEMBER 01, 2023@11:54 [...] 10/11/2023 ALLIE CUELLO Aortic Valve Disorder (SCT [id number]) 10/09/2023 TOÑO CAI Cerebrovascular disease I67.9 04/26/2023 [...] DE LA CRUZ MD Hypertension (SNOMED CT 89028297) I 04/26/2023 ALLIE CUELLO Spinal Stenosis * (ICD-9-CM 724.00) 02/05/2010 VESTA DE LA CRUZ MD Hyperlipidemia (SNOMED CT 61426844) 04/26/2023 ALLIE CUELLO Osteoarthritis * (ICD-9-CM 715.90) [...] soft, enlarged, slightly warm, tender to palpation. requests drainage. PROCEDURE NOTE: ASPIRATION PROCEDURE PREFORMED: [...] Alleviating factors include:Prior Tx 4) Time-Out and [place] Identification: TIME:October@11:45 PROVIDER NAME:Abdiel Donahue MS, PA-C STAFF NAME:Virgen Singletary RN IDENTIFICATION CONFIRMED BY ASSISTING STAFF MEMBER (X) [place] stating full name BEBO SHEPHERD (X) Niota stating full SS# [id number] (X) stating Feb Niota presents complaining of Right elbow pain. He [...] with good CMS pre and post application. Niota was discharged in improved condition with discharge instructions. POST PROCEDURE PAIN ASSEMENT COMPLETED Yes: Pain 1-10:0 Nursing wound care: See nurses note/wound order RTC as needed. ASSESSMENT/PLAN #1 laceration without Foreign Body of right upper Arm, Initial Encounter #2 olecranon Bursitis, right Elbow As above Ni[place] able to verbalize understanding of plan of care and agrees. >> MEDICATIONS Reviewed and reconciled with [place] /thomas/ ABDIEL ARREOLA MS,PA-C PHYSICIAN MACHINE WEDGER Signed: 11/01/2023 14:11 ABDIEL DONAHUE [place] [facility]
--- OUTSIDE RECORDS SUMMARY | 2024-10-01 11:26 | XMS_ITS | Encounter Summary ---
Author Name [facility] [place] Organization [facility] [place] Address [address] [place] [id number] Care Team Providers Care Rehab Nursing Tech Name Role Phone TOÑO PETER Primary Care [...] Relationship to Policy Wen [place] MEDICARE SUPPLEMEN MASTER PSUED O MEDEX [facility] E Mar 19, 2004 [id number] [phone] HOLLIE SHEPHERD PATIENT [place]BS [place] MEDICARE SUPPLEMEN MASTER MEDEX [facility] E Mar 19, 2004 [id number] [phone] HOLLIE SHEPHERD [place]IENT [place] SUPPLEMEN MASTER MEDEX [place] E Mar 19, 2004 [id number] [phone] HOLLIE SHEPHERD PATIENT BCBS [facility] MEDICARE SUPPLEMEN MASTER PSUED O MEDEX [facility]Z E Mar 19, 2004 [id number] HOLLIE SHEPHERD PATIENT MEDICARE (WNR) MEDICARE (M) PART B Mar 19, 2004 PART B [id number] HOLLIE SHEPHERD PATIENT MEDICARE (WNR) MEDICARE (M) PART B Mar 19, 2004 PART B [id number] [phone] CORAHOLLIE SILVA ALD PATIENT MEDICARE (WNR) MEDICARE (M) PART B Mar 19, 2004 PART B [id number] CORAHOLLIE SILVA ALD PATIENT MEDICARE (WNR) MEDICARE (M) PART A Feb 17, 2003 PART A [id number] [phone] CORA,HOLLIE ALD PATIENT MEDICARE (WNR) MEDICARE (M) PART A Feb 17, 2003 PART A [id number] CORAHOLLIE SILVA ALD PATIENT MEDICARE (WNR) MEDICARE (M) PART A Feb 17, 2003 PART A [id number] [phone] CORAHOLLIE SILVA PATIENT MEDICARE (WNR) MEDICARE (M) PART A Feb 17, 2003 PART A [id number] [id number] CORAHOLLIE SILVA PATIENT MEDICARE (WNR) MEDICARE (M) PART B Feb 17, 2003 PART B [id number] [id number] CORAHOLLIE SILVA PATIENT MEDICARE (WNR) MEDICARE (M) PART A Feb 17, 2003 PART A [id number] [phone] HOLLIE SHEPHERD PATIENT MEDICARE (WNR) MEDICARE (M) PART B Feb 17, 2003 PART B [id number] HOLLIE SHEPHERD PATIENT Selected Encounter This section includes the information on record at [place] for the Encounter. Date/Time Encounter Type Encounter Description Reason Provider Source Aug 16, 2024 02:00 PM OFFICE O/P EST LOW 20 MIN PRIMARY CARE/MEDICINE ICD-10-CM K55.9 Vascular disorder of intestine, unspecified JUAN LUIS PETER Encounter Template Text not used by [place] Assessments - Encounter Diagnoses This section includes the primary and secondary diagnoses documented for the Encounter. Date/Time Primary/Secondary Diagnosis Diagnosis Name Provider Source Aug 23, 2024 01:28 PM PRIMARY Vascular disorder of intestine, unspecified JACINTO PETER [place] [facility] [place] [facility] Aug 23, 2024 01:28 PM SECONDARY Encounter for immunization TATIANAVALERIY BUNDY Mi[facility] [place] [facility] Aug 23, 2024 01:28 PM SECONDARY Essential (primary) hypertension JACINTO PETER [place] [facility] [place] [facility] Aug 23, 2024 01:28 PM SECONDARY Type 2 diabetes mellitus with unspecified complications SERGEJESELYUBOVJACINTO BETTY Dodd [facility] Plan of Treatment: Future Appointments (+ 6 months) and Future Tests (+/- 45 days) The Plan of Treatment section includes future care activities for the patient from all [place] [facility] This section includes future appointments and future orders which are active, pending or scheduled. Future Appointments This section includes appointments that were scheduled to occur 6 months from the date of the Encounter, up to a maximum of 20 appointments. The data comes from all [place] treatment facilities. Appointment Date/Time Appointment Type Appointme nt Facility Name Aug 20, 2024 09:00 AM AMBULATORY - MEDICINE [place] [facility] [place] [facility] Aug 22, 2024 11:00 AM AMBULATORY - MEDICINE [facility] [place] [facility] Sep 27, 2024 11:00 AM AMBULATORY - PSYCHIATRY [place] [facility] [place] [facility] Oct 03, 2024 02:00 PM AMBULATORY - [place]ICINE [place] [facility] [place] [facility] Oct 08, 2024 11:00 AM [facility]ORY [facility] NONE [facility] [place] [facility] November 15, 2024 11:00 AM AMBULATORY [place]ICINE [place] [facility] [place] [facility] Nov 27, 2024 11:00 AM [facility] Active, Pending, and Scheduled Orders This section includes a listing of several types of active, pending, and scheduled orders, including clinic medications orders, diagnostic test orders, procedure orders and consult orders; where the start date of the order is 45 days before the date of the Encounter or 45 days after the date of theEncounter. The data comes from all [place] treatment facilities. Test Date/Time Test Type Test Details Facility Name Jul 05, 2024 09:52 AM Consult Order COMMUNITY CARE-RHEUMATOLOGY Cons Furnace Repairer's Choice [facility] Aug 22, 2024 12:00 AM Laboratory - Chemi stry Order CALCIUM BLOOD (SST-SERUM) SP [facility] Aug 22, 2024 12:00 AM Laboratory - Chemi stry Order C-PEPTIDE (q) BLOOD (SST-SERUM) SP [facility] Lab Results: +/- 30 days of the encounter This section includes the Chemistry and Hematology Lab Results on record with [place] for the patient. Radiology Reports and Pathology Reports are provided separately, in subsequent sections. Lab Results This section contains the Chemistry/Hematology Results that were resulted 30 days before or 30 daysafter the date of the Encounter. Date/Time Source Result Type Result - Unit Interpretation Reference Range Specimen Type Comment Aug 07, 2024 07:58 AM [facility] FERRITIN SERUM Specimen Type: SERUM No comment entered. Ordering Provider: SILVIA PETER Report Released Date/Time: Jul 24, 2024 11:22 AM Reporting Lab: [address] [address] Performing Lab: [address] [address] FERRITIN 69 ng/mL 20-300 Aug 07, 2024 07:58 AM [facility] IRON & TIBC PANEL SERUM Specimen Type: SERUM No comment entered. Ordering Provider: TOÑO PETER Report Released Date/Time: Jul 24, 2024 11:22 AM Reporting Lab: [address] [address] Performing Lab: [address] [address] TIBC 350 ug/dL 204-475 IRON 53 ug/dL 40-160 Transferrin Saturation 15.2 L 20.0-50.0 Transferrin (TRF) 265 mg/dL 200-360 Aug 07, 2024 07:58 AM [facility] LIVER FUNCTION SERUM Specimen Type: SERUM No comment entered. Ordering Provider: TOÑO PETER Report Released Date/Time: Jul 24, 2024 11:22 AM Reporting Lab: [facility] [address] [facility] [address] Performing Lab: [address] [address] PROTEIN,TOTAL 5.5 g/dL L 6.0-8.3 ALBUMIN 3.5 g/dL 3.5-5.0 ALKALINE PHOSPHATASE 82 U/L 40-150 AST 25 U/L 5-34 ALT 27 U/L BILIRUBIN, TOTAL 0.7 mg/dL 0.2-1.2 Aug 07, 2024 07:58 AM [facility] BASIC METABOLIC PANEL (fasting) SERUM Specime n Type: SERUM No comment entered. Ordering Provider: TOÑO PETER Report Released Date/Time: Jul 24, 2024 11:22 AM Reporting Lab: [address] [address] Performing Lab: [address] [address] UREA NITROGEN 18 mg/dL 7-25 GLUCOSE 150 mg/dL H 65-100 SODIUM 143 mmol/L 135-145 POTASSIUM 3.4 mmol/L L 3.5-5.0 CHLORIDE 106 mmol/L 100-110 CO2 26 meq/L 20-30 CALCIUM 9.1 mg/dL 8.5-10.2 CREATININE, Serum 0.75 mg/dL 0.50-1.40 eGFR(CKD-EPI 2020) 87 mL/min >60 Aug 07, 2024 07:58 AM [facility] CBC AND DIFF (AUTO) BLOOD Specimen Type: BLOO D No comment entered. Ordering Provider: TOÑO PETER Report Released Date/Time: Jul 24, 2024 11:22 AM Reporting Lab: [address] [address] Performing Lab: [address] [address] WBC 3.96 10*3/uL L 4.50-11.00 RBC 4.18 [...] 10*3/uL 0.00-0.00 Aug 07, 2024 07:58 AM [facility] OSMOLALITY (SERUM) SERUM Specimen Type: SERUM Comment: Manually entered by: RTO Ordering Provider: ALLIE CUELLO Report Released Date/Time: Jul 24, 2024 02:18 PM Reporting Lab: [facility] [address] [facility] [address] Performing Lab: [facility] [address] [facility] [address] OSMOLALITY (SERUM) 305 H 280-300 Aug 07, 2024 07:58 AM [facility] VITAMIN D (25-OH) SERUM Specimen Type: SERUM No comment entered. Ordering Provider: ALLIE CUELLO Report Released Date/Time: Jul 24, 2024 02:18 PM Reporting Lab: [address] [address] Performing Lab: [address] [address] VITAMIN D (25-OH) 41 ng/mL 20-50 Aug 07, 2024 07:58 AM [facility] HEMOGLOBIN A1C PANEL BLOOD Specimen Type: BLO [...] Jul 24, 2024 02:23 PM Reporting Lab: [address] [address] Performing Lab: [address] [address] HEMOGLOBIN A1C 5.9 H 4.0-5.6 Aug 07, 2024 07:58 AM [facility] BASIC METABOLIC PANEL (non-fasting) SERUM Spe cimen Type: SERUM No comment entered. Ordering Provider: ALLIE CUELLO Report Released Date/Time: Jul 24, 2024 02:18 PM Reporting Lab: [address] [address] Performing Lab: [address] [address] UREA NITROGEN 19 mg/dL 7-25 GLUCOSE 149 mg/dL H 65-100 SODIUM 141 mmol/L 135-145 POTASSIUM 3.4 mmol/L L 3.5-5.0 CHLORIDE 106 mmol/L 100-110 CO2 26 meq/L 20-30 CALCIUM 9.0 mg/dL 8.5-10.2 CREATININE, Serum 0.73 mg/dL 0.50-1.40 eGFR(CKD-EPI 2020) 88 mL/min >60 Aug 07, 2024 07:58 AM [facility] MICROALBUMIN CREATININE RATIO PANEL URINE Spe cimen Type: URINE No comment entered. Ordering Provider: ALLIE CUELLO Report Released Date/Time: Jul 24, 2024 02:23 PM Reporting Lab: [facility] [address] [facility] [address] Performing Lab: [facility] [address] [facility] [address] MICROALBUMIN/CREATININE RATIO 52.0 mg/g H 0-29.9 MICROALBUMIN,QUANTITATIVE 10.4 mg/dL RR UNAVAIL CREATININE URINE 199.85 mg/dL Vital Signs: All taken on the encounter date This section contains inpatient and outpatient Vital Signs collected on the date of the Encounter. Date/Time Temperature Pulse Blood Pressure Respiratory Rate SP02 Pain Height Weight Body Mass Index Source Aug 16, 2024 01:41 PM 98.1 100 146/86 16 96 0 160 27 [facility] Immunizations: All administered on the encounter date This section contains immunizations associated to the Encounter. Immunization Series Date Issued Administered By Site Reaction Lot Number CVX Code Drug Frame Changer Comment(s) Source TDAP Aug 16, 2024 VALERIY SIMPSON E LEFT DELTO ID [id number] PhotoTLC NE Booster for Series, ADMINISTERE D AT [place], [facility] Social History: Smoking Status (Most current) and Tobacco Use (All prior to encounter date) This section includes the most current, and the historical, smoking and tobacco- related health factors from the [place] facility where the Encounter took place. Current Smoking Status This section includes the most current smoking, or tobacco-related health factor, from the [place] facility where the Encounter took place. Date/Time Current Smoking Status Comment [facility] Jun 17, 2024 10:31 AM VA-TOBACCO USE FOR TAMMY CIGARETTES [facility] Tobacco Use History This section includes a history of the smoking, or tobacco-related health factors, that were collected on or before the date of the Encounter. The data comes from the [place] facility where the Encounter took place. Date/Time Smoking Status/Tobac co Use Comment [facility] Jun 17, 2024 10:31 AM VA-TOBACCO USE FORMER CIGARETTES [facility] Jun 05, 2023 11:00 AM VA-TOBACCO FORMER USER [facility] Jun 05, 2023 11:00 AM VA-TOBACCO QUIT 15 YRS OR MORE [facility] [place] [facility] Jun 06, 2022 01:00 PM VA-TOBACCO FORMER USER [facility] [place] [facility] Jun 06, 2022 01:00 PM VA-TOBACCO QUIT 15 YRS OR MORE [facility] [place] [facility] Jun 30, 2021 02:37 PM VA-TOBACCO FORMER USER [facility] [place] [facility] Jun 30, 2021 02:37 PM VA-TOBACCO QUIT 5 TO < 15 YRS [facility] [place] [facility] May 22, 2020 03:30 PM VA-TOBACCO NEVER USED [facility] [place] [facility] May 08, 2018 02:03 PM VA-TOBACCO FORMER USER [facility] [place] [facility] May 08, 2018 02:03 PM VA-TOBACCO QUIT 15 YRS OR MORE [facility] [place] [facility] November 10, 2017 02:33 PM QUIT TOBACCO USE > 7 YEARS AGO [facility] [place] [facility] October 21, 2016 01:55 PM QUIT TOBACCO USE > 7 YEARS AGO [facility] [place] [facility] Sep 18, 2015 11:24 AM QUIT TOBACCO USE > 7 YEARS AGO stopped 50 years ago [facility] [place] [facility] May 19, 2005 08:01 AM HISTORY OF SMOKING [facility] [place] [facility] May 31, 2004 01:02 PM HISTORY OF SMOKING [facility] [place] [facility] Jun 04, 2003 07:57 AM HISTORY OF SMOKING [facility] [place] [facility] Jun 03, 2002 01:11 PM HISTORY OF SMOKING [facility] [place] [facility] Jun 03, 2002 01:11 PM QUIT TOBACCO USE > 7 YEARS AGO [place] [facility] [place] [facility] Advance Directives: All historical and current Section Date Range: From patient's date of to the date document was created. This section includes ALL of a patient's completed or amended VA Advance and Rescinded Directives. The entries below indicate that a directive exists for the patient, but an actual copy is not included with this document. The data comes from all [place] facilities. Date Advance Directives Provider Source Jun 02, 2023 ADVANCE DIRECTIVE PEREZJENNIFER PABLO Garcia [place] [facility] Encounter Notes: All associated encounter notes This section contains the clinical notes associated to the Encounter. Date/Time Encounter Note(s) Provider Source Aug 16, 2024 02:16 PM PHYSICIAN FLAME CUTTING MACHINE OPERATOR HELPER NOTE: LOCAL TITLE: PA NOTE STANDARD TITLE: PHYSICIAN FLAME CUTTING MACHINE OPERATOR HELPER NOTE DATE OF NOTE: AUG 16, 2024@14:16 ENTRY DATE: AUG 16, 2024@14:16:35 AUTHOR: TOÑO PETER COSIGNER: URGENCY: STATUS: COMPLETED CC/HPI/A/P: 84 year old MALE here in follow-up for; dm, no hypos, has tabs if needed. We discuss his low HA1C. He will review with DR Cuello. I think it does not need to be this low as this increases chances for lows. Bowel infarction, sp surgery. Did very well, one week in rehab now back at home 'I am free today' (unlimited activity) Review of systems: Patient reports no changes from [facility], in meds or any admissions. Active problems - Computerized Problem List is the source for the followin. Acute mesenteric ischaemia 2. Elevated PSA 3. Aortic Valve Disorder (SCT 6497648) TAVR 10/03/2023 [facility]. 4. Cerebrovascular disease s/p L carotid endarterectomy 5. Chronic recurrent major depressive disorder 6. Insulin pump present 7. Hypertension 8. Family history of cancer of colon Brother, rectal cancer. 9. Testicular hypofunction 10. Osteoporosis 11. Major depressive disorder 12. RA - Rheumatoid arthritis 13. History of colonic polyp One TA on 06/10/2020 colonoscopy. 14. Diverticular disease of colon 15. Adjustment disorder 16. Hemorrhoids 07/02/[address] Barrientos. 17. Polymyalgia Rheumatica 18. Microscopic Hematuria longstanding, Followed by community Urologist 19. Rosacea 20. Hypertension (SNOMED CT 88338951) 21. Spinal Stenosis * 22. Hyperlipidemia (SNOMED CT 61789775) 23. Osteoarthritis * 24. Lower Back Pain * 25. Vertigo 26. Diabetes mellitus type 2 (SNOMED CT 69575809) 27. Gastroesophageal Reflux Disorder SERVICE CONNECTED % - 10 VA and Non VA meds were reconciled with the patient who left with a corrected copy. See medication page for details. Active and Recently Outpatient Medications (excluding Supplies): Active Outpatient Medications Status 1) AMLODIPINE BESYLATE 2.5MG TAB TAKE ONE TABLET BY MOUTH ONCE ACTIVE DAILY FOR BLOOD PRESSURE/HEART, DO NOT TAKE WITH GRAPEFRUIT JUICE Indication: FOR HIGH BLOOD PRESSURE 2) ATORVASTATIN CALCIUM 80MG TAB TAKE ONE-HALF TABLET BY MOUTH ACTIVE ONCE DAILY Indication: FOR HIGH CHOLESTEROL 3) CALCIUM 200MG (CA CITRATE-950MG) TAB TAKE FOUR TABLETS BY ACTIVE MOUTH TWICE DAILY Indication: FOR OSTEOPOROSIS 4) CYCLOBENZAPRINE HCL 10MG TAB TAKE ONE TABLET BY MOUTH TWICE ACTIVE DAILY NEEDED Indication: FOR MUSCLE SPASM 5) GABAPENTIN 600MG TAB TAKE ONE TABLET BY MOUTH THREE TIMES A ACTIVE DAY 6) GLUCOSE 4GM CHEW TAB CHEW ONE TABLET BY MOUTH EVERY DAY ACTIVE NEEDED Indication: FOR LOW BLOOD SUGAR 7) HYDROXYCHLOROQUINE SULFATE 200MG TAB TAKE ONE TABLET BY ACTIVE MOUTH ONCE DAILY MONDAY-MONDAY AND THEN TAKE 1 TABLET TWICE DAILY ON MONDAY AND MONDAY. DO NOT TAKE WITH CITALOPRAM 8) INSULIN,ASPART,HUMAN 100 UNIT/ML INJ INJECT 80 UNITS ACTIVE SUBCUTANEOUSLY EVERY DAY DIRECTED FOR USE WITH CONTINUOUS SUBCUTANEOUS INSULIN INFUSION DEVICE Indication: FOR DIABETES 9) LEFLUNOMIDE 20MG TAB TAKE ONE TABLET BY MOUTH ONCE DAILY ACTIVE 10) LOSARTAN 100MG TAB TAKE ONE TABLET BY MOUTH ONCE DAILY FOR ACTIVE BLOOD PRESSURE/HEART Indication: FOR HIGH BLOOD PRESSURE 11) MULTIVIT/OPHTH AREDS2/LUTE/ZEAX CAP/TAB TAKE 1 CAPSULE BY ACTIVE MOUTH TWICE DAILY IN THE MORNING AND EVENING, WITH FOOD 12) PILOCARPINE HCL 5MG TAB TAKE ONE TABLET BY MOUTH TWICE DAILY ACTIVE 13) PREDNISONE 2.5MG TAB TAKE THREE TABLETS BY MOUTH ONCE DAILY ACTIVE 14) PREDNISONE 5MG TAB TAKE ONE TABLET BY MOUTH ONCE DAILY ACTIVE 15) PSYLLIUM ORAL PWD TAKE 2 TEASPOONFULS BY MOUTH ONCE DAILY ACTIVE (MIX WITH AT LEAST 8OZ. OF WATER OR OTHER FLUID) Indication: FOR CONSTIPATION 16) TAMSULOSIN HCL 0.4MG CAP TAKE TWO CAPSULES BY MOUTH AT ACTIVE (S) BEDTIME 17) TOCILIZUMAB 162MG/0.9ML INJ SYR 0.9ML INJECT 162MG ACTIVE SUBCUTANEOUSLY EVERY 2 WEEKS Inactive Outpatient Medications Status 1) LEFLUNOMIDE 20MG TAB TAKE ONE TABLET BY MOUTH ONCE DAILY Active Non-VA Medications Status 1) Non-VA [...] BY MOUTH ONCE DAILY ACTIVE 6) Non-VA OMEPRAZOLE 20MG EC CAP 20MG BY MOUTH EVERY DAY ACTIVE 24 Total Medications 98.1 F [36.7 C] (08/16/2024 13:41) 100 (08/16/2024 13:41) 16 (08/16/2024 13:41) 146/86 (08/16/2024 13:41) 0 (08/16/2024 13:41) 64.5 in [163.8 cm] (06/17/2024 10:35) 160 lb [72.57 kg] (08/16/2024 13:41) BMI: 27.1 Neuro: Alert and oriented times three, grossly nonfocal, nasolabial folds intact. Full sentences, he looks and sounds very well1!!!!! Recent labs reviewed with patient today:yes /es/ Toño Peter PA-C STAFF PHYSICIAN FLAME CUTTING MACHINE OPERATOR HELPER Signed: 08/16/2024 14:19 TOÑO PETER [place] [facility] [place] [facility] Aug 16, 2024 01:46 PM PREVENTIVE MEDICINE NURSING NOTE: LOCAL TITLE: CLINICAL REMINDERS/NURSING STANDARD TITLE: PREVENTIVE MEDICINE NURSING NOTE DATE OF NOTE: AUG 16, 2024@13:46 ENTRY DATE: AUG 16, 2024@13:46:58 AUTHOR: ODILON SIMPSONIGNER: URGENCY: STATUS: COMPLETED CLINICAL REMINDERS/NURSING Has ADDENDA Homelessness/Food Insecurity Screen: In the past 2 [...] Not worried about housing near future The reports the following: Within the past 12 months, you worried whether your food would run out before you got money to buy more. Never true Within the past 12 months, the food you bought just didn't last and you didn't have money to get more. Never true PAVE Foot Check: A complete foot check was completed at this encounter. VISUAL INSPECTION: Includes inspection for skin breaks, deformity, erythema, trauma, pallor on elevation, dependent rubor, nail deformities, extensive callus and pitting edema. Visual exam results: Normal PEDAL PULSES: Includes palpation of dorsalis and posterior tibial pulses and signs/symptoms of vascular compromise like pain, pallor, parasthesia or paralysis. Present (even if diminished) SENSORY CHECK: Includes 10 gram Monofilament ([place]-Renee) test of sensation. Intact (Greater than or equal to 80% of sites checked) Abnormal (Less than 80% of sites checked): Intact LOW-RISK: LOW RISK INFORMATION PROVIDED: 1. Advised patient not to walk barefoot. 2. Explained the importance of daily foot checks for changes. 3. Stressed the importance of daily foot hygiene, including bathing and complete drying. The patient verbalized understanding and was offered a detailed handout on diabetic foot care. /thomas/ ODILON SIMPSON LPN Signed: 08/16/2024 13:48 08/16/2024 ADDENDUM STATUS: COMPLETED Tdap Immunization: Administered: TDAP Date Administered: Aug 16, 2024 14:00 Series: Booster Frame Changer: [employer] [place] Lot: [id number] Exp Date: Jul 07, 2025 [facility]: [phone] Admin Route/Site: INTRAMUSCULAR/LEFT DELTOID Dosage: 0.5mL Vaccine Information Statement(s): TDAP (TETANUS, DIPHTHERIA, PERTUSSIS) VACCINE VIS Jan 22, 2021 ([place]) Order By: Policy Administered By: Odilon Simpson The TETANUS/DIPHTHERIA/PERTUSSIS (TDAP) Vaccine Information Statement (VIS) was reviewed with the patient/caregiver which lists the benefits and risks of the vaccine and the risks of not receiving the Tdap vaccine. The patient/caregiver denied any prior severe reaction to this vaccine or its components or a severe allergic reaction, such as anaphylaxis, to any vaccine or any injectable therapy. The patient/caregiver gave verbal consent to receive the vaccine. /thomas/ ODILON SIMPSON LPN Signed: 08/16/2024 14:02 ODILON SIMPSON [facility]
--- OUTSIDE RECORDS SUMMARY | 2024-10-01 11:26 | XMS_ITS | Encounter Summary ---
Author Name [facility] [place] Organization [facility] [place] Address [address] [place] [id number] Care Team Providers Care Batch Freezer Name Role Phone TOÑO CAI Primary Care [...] [place] MEDIC[place] SUPPLEMEN MASTER PSUED O MEDEX [facility] E Mar 19, 2004 [id number] HOLLIE SHEPHERD PATIENT BCBS [place] MEDICARE SUPPLEMEN MASTER MEDEX [place] E Mar 19, 2004 [id number] HOLLIE SHEPHERD PATIENT [place]BS [place] MED[place]ARE SUPPLEMEN MASTER MEDEX [place] E Mar 19, 2004 [id number] [phone] HOLLIE SHEPHERD PATIENT BCBS [facility] MEDICARE SUPPLEMEN MASTER PSUED O MEDEX [place] E Mar 19, 2004 [id number] [phone] HOLLIE SHEPHERD PATIENT MEDICARE (WNR) MEDICARE (M) PART B Mar 19, 2004 PART B [id number] [phone] CORA,HOLLIE ALD PATIENT MEDICARE (WNR) MEDICARE (M) PART B Mar 19, 2004 PART B [id number] CORAHOLLIE SILVA ALD PATIENT MEDICARE (WNR) MEDICARE (M) PART B Mar 19, 2004 PART B [id number] [phone] CORAHOLLIE SILVA ALD PATIENT MEDICARE (WNR) MEDICARE (M) PART A Feb 17, 2003 PART A [id number] [phone] CORAHOLLIE ALD PATIENT MEDICARE (WNR) MEDICARE (M) PART A Feb 17, 2003 PART A [id number] CORAHOLLIE SILVA ALD PATIENT MEDICARE (WNR) MEDICARE (M) PART A Feb 17, 2003 PART A [id number] CORAHOLLIE SILVA ALD PATIENT MEDICARE (WNR) MEDICARE (M) PART A Feb 17, 2003 PART A [id number] [phone] CORAHOLLIE SILVA ALD PATIENT MEDICARE (WNR) MEDICARE (M) PART B Feb 17, 2003 PART B [id number] [phone] CORAHOLLIE SILVA ALD PATIENT MEDICARE (WNR) MEDICARE (M) PART A Feb 17, 2003 PART A [id number] [phone] HOLLIE SHEPHERD PATIENT MEDICARE (WNR) MEDICARE (M) PART B Feb 17, 2003 PART B [id number] HOLLIE SHEPHERD PATIENT Selected Encounter This section includes the information on record at [place] for the Encounter. Date/Time Encounter Type Encounter Description Reason Provider Source Mar 25, 2024 10:30 AM COMPRE OPH EXAM EST PT 1/> OPTOMETRY ICD-10-CM 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, right eye, intermed dry stage BARBARA VALLADARES Mikey Encounter Template Text not used by [place] Assessments - Encounter Diagnoses This section includes the primary and secondary diagnoses documented for the Encounter. 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 This section includes future appointments [...] - MEDICINE [facility] [place] [facility] Apr 04, 2024 02:00 PM AMBULATORY - MEDICINE [facility] [place] [facility] Apr 08, 2024 01:00 PM AMBULATORY - REHAB MEDICIN E [facility] [place] [facility] Apr 12, 2024 09:45 AM AMBULATORY - MEDICINE [facility] [place] [facility] Apr 16, 2024 10:00 AM AMBULATORY - REHAB MEDICIN E [facility] [place] [facility] May 02, 2024 10:00 AM AMBULATORY - REHAB MEDICIN E [facility] [place] [facility] May 08, 2024 10:00 AM AMBULATORY - REHAB MEDICIN E [facility] [place] [facility] May 29, 2024 11:30 AM AMBULATORY - MEDICINE [facility] [place] [facility] Jun 05, 2024 12:00 PM AMBULATORY [place] [facility] Jun 05, 2024 12:00 PM AMBULATORY - PSYCHIATRY [facility] [place] [facility] Jun 17, 2024 10:30 AM AMBULATORY - MEDICINE [facility] [place] [facility] Jun 17, 2024 10:31 AM AMBULATORY - MEDICINE [facility] [place] [facility] Jun 17, 2024 11:45 AM AMBULATORY - NONE [facility] [place] [facility] Jun 21, 2024 11:00 AM AMBULATORY - MEDICINE [facility] [place] [facility] Jul 05, 2024 10:00 AM AMBULATORY - MEDICINE [facility] [place] [facility] Jul 10, 2024 08:00 AM AMBULATORY - MEDICINE [facility] [place] [facility] Jul 10, 2024 01:30 PM AMBULATORY - MEDICINE [facility] [place] [facility] Aug 01, 2024 11:00 AM AMBULATORY - MEDICINE [facility] [place] [facility] Aug 06, 2024 10:00 AM AMBULATORY - MEDICINE [facility] [place] [facility] Aug 16, 2024 02:00 PM AMBULATORY - MEDICINE [place] [facility] [place] [facility] Social History: Smoking Status (Most current) [...] took place. Date/Time Current Smoking Status Comment [facility] Jun 05, 2023 11:00 AM VA-TOBACCO FORMER USER [place] [facility] [place] [facility] Tobacco Use History This section includes a history of the smoking, or tobacco-related health factors, that were collected on or before the date of the Encounter. The data comes from the [place] facility where the Encounter took place. Date/Time Smoking Status/Tobac co Use Comment Facility Jun 05, 2023 11:00 AM VA-TOBACCO QUIT 15 YRS OR MORE [facility] [place] [facility] Jun 06, 2022 01:00 PM VA-TOBACCO FORMER USER [facility] [place] [facility] Jun 06, 2022 01:00 PM VA-TOBACCO QUIT 15 YRS OR MORE [facility] [place] [facility] Jun 30, 2021 02:37 PM VA-TOBACCO FORMER USER [facility] [place] [facility] Jun 30, 2021 02:37 PM VA-TOBACCO QUIT 5 TO < 15 YRS [place] [facility] [place] [facility] May 22, 2020 03:30 PM VA-TOBACCO NEVER USED [place] [facility] [place] [facility] May 08, 2018 02:03 PM VA-TOBACCO FORMER USER [facility] May 08, 2018 02:03 PM VA-TOBACCO QUIT 15 YRS OR MORE [facility] November 10, 2017 02:33 PM QUIT TOBACCO USE > 7 YEARS AGO [place] [facility] [place] [facility] October 21, 2016 01:55 PM QUIT TOBACCO USE > 7 YEARS AGO [facility] Sep 18, 2015 11:24 AM QUIT TOBACCO USE > 7 YEARS AGO stopped 50 years ago [facility] May 19, 2005 08:01 AM [facility] May 31, 2004 01:02 PM HISTORY OF SMOKING [place] [facility] Jun 04, 2003 07:57 AM [facility] Jun 03, 2002 01:11 PM [facility] Jun 03, 2002 01:11 PM QUIT TOBACCO USE > 7 [facility] AGO [facility] Advance Directives: All historical and current [...] Jun 02, 2023 ADVANCE DIRECTIVE JENNIFER QUIROS [facility] RL [facility] Radiology Reports: +/- 30 days of the [...] the Encounter. The data comes from all [place] treatment facilities. Date/Time Radiology Report Provider Source Apr 02, 2024 02:24 PM SHOULDER,COMPLETE(RIGHT): BEBO SHEPHERD [id number] -[id number] M Exm Date: APR 02, 2024@14:24 Req Phys: TOÑO CAI Pat Loc: CWM/NO/PACT 3 (Req'g Loc) Img Loc: [facility]BUILDING 1 Service: [place] [address] (Case 50 COMPLETE) SHOULDER,COMPLETE(RIGHT) (RAD Detailed) CPT:75867 Reason for Study: lateral pain after a fall last week. Clinical History: Report Status: Verified Date Reported: APR 02, 2024 Date Verified: APR 02, 2024 Rn Perioperative E-Sig:/ES/NAPOLEON ELLIOTT JR Report: Study: AP internally [...] Primary Interpreting Staff: NAPOLEON ELLIOTT JR, Radiologist (Rn Perioperative) /NAPOLEON SCHMITZ JR [facility] Encounter Notes: All associated encounter [...] 10/11/2023 ALLIE CUELLO Aortic Valve Disorder (SCT 7788043) 10/09/2023 TOÑO CAI Cerebrovascular disease I67.9 04/26/2023 [...] DE LA CRUZ MD Hypertension (SNOMED CT 37297205) I 04/26/2023 ALLIE CUELLO Spinal Stenosis * (ICD-9-CM 724.00) 02/05/2010 VESTA DE LA CRUZ MD Hyperlipidemia (SNOMED CT 75226949) 04/26/2023 ALLIE CUELLO Osteoarthritis * (ICD-9-CM 715.90) 07/02/2008 PAUL ACOSTA Lower Back Pain * (ICD-9-CM 724.2) 07/02/2008 ACOSTA,PAUL O Vertigo 780.4 11/28/2007 PAUL ACOSTA Diabetes mellitus type 2 (SNOMED CT 09/17/2022 KHUSHBOOALLIE Gastroesophageal Reflux Disorder 53 11/28/2007 PAUL ACOSTA [...] manifestations. Pseudophakia OU. P: Ordered consult to [facility] mainly for OS. Ordered new eyewear. The patient will return in 12 months or sooner if any problems arise. Education: After discussion and answering all 's questions, demonstrated and verbalized understanding of diagnosis and [...] of active outpatient prescriptions dispensed from this [place] (local) and dispensed from another [place] or [facility] facility (remote) as well [...] non-VA provider. /thomas/ BARBARA VALLADARES OD STAFF MANAGER PEST Signed: 03/25/2024 11:12 BARBARA VALLADARES [place] [facility]
--- OUTSIDE RECORDS SUMMARY | 2024-10-01 11:27 | XMS_ITS | Continuity of Care Document ---
Author Organization [facility] [place] [address] [address]- Care Team Providers Care Fork Assembler Name Role Phone Jamilah Gann Primary Care Physician ( [phone] Encounter [facility] [id number] Date(s): 09/20/24 - 09/27/24 [facility] [address] [address]- Encounter Diagnosis Superior mesenteric artery stenosis(Discharge Diagnosis) - 09/20/24 Renal artery stenosis(Discharge Diagnosis) - 09/20/24 Small bowel perforation(Discharge Diagnosis) - 09/20/24 Attending Physician: Yael Oliva MD Admitting Physician: Yael Oliva MD Referring Physician: Jamilah Gann Encounter Type: Office Visit Allergies, Adverse Reactions, Alerts Substance Criticality Severity Reaction Reaction Severity Status penicillin Active Zosyn Active Medications (Vitamin D3) Cholecalciferol 400 JAIL units/mL oral syringe 1 mL = 10 [...] capsule, 0 Refills, Maintenance, 08/06/18 3:35:00 PM EDI, [place], [facility] Mail Delivery Start Date: 08/06/18 [...] Effective Dates Health Status Clinical Service Informant Superior mesenteric artery stenosis Discharge Diagnosis 09/20/24 Renal artery stenosis Discharge Diagnosis 09/20/24 Small bowel perforation Discharge Diagnosis 09/20/24 Vital Signs Most recent to oldest [Reference Range]: 1 Height 170 cm (09/20/24 11:41 AM) Weight 73.3 kg (09/20/24 11:41 AM) Oxygen Saturation [94-100 %] 97 % (09/20/24 11:41 AM) Pulse Rate [55-90 bpm] 86 bpm (09/20/24 11:41 AM) Body Mass Index [18.5-24.99 kg/m2] 25.36 kg/m2 *H* (09/20/24 11:41 AM) Blood Pressure [90-138/55-84 mm Hg] 130/ 66mm Hg (09/20/24 11:41 AM) Mode of Delivery (Oxygen) Room air (09/20/24 11:41 AM) Blood pressure sites Arm, left (09/20/24 11:41 AM) Weight Obtained Via Standing scale (09/20/24 11:41 AM) Social History Social History Type Response Smoking Status Former smoker; Tobac co user in household: No entered on: 09/12/17 Sex Sex Representation Male (finding) Patient Care team information Care Team Personnel Name: Erna Mckeon RN Position: S RN Member Role: Primary Care Nurse Name: Nancy Young RN Position: S RN Member Role: Primary Care Nurse Name: Jamilah Gann Position: Reference Physician Member Role: PCP [address]: [address] [place] [address], [place] [address]- [place] [employer]: Name: Anastasia Oliva RN Position: S RN Member Role: Primary Care Nurse Care Team Related Persons Name: LUISITO SHEPHERD Name: GRACIE SHEPHERD Insurance Providers Guarantor name: BEBO SHEPHERD Health Plan Information #: 2 Payer: MEDEX Member Number: [id number] Policy Number: NA Group Number: NA Health Plan Information #: 3 Payer: [employer] [facility] Member Number: [id number] Policy Number: NA Group Number: NA Health Plan Information #: 1 Payer: MEDICARE PART B OUTPT Member Number: [id number] Policy Number: NA Group Number: NA
--- OUTSIDE RECORDS SUMMARY | 2024-10-01 11:27 | XMS_ITS ---
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 Name Role Phone TOÑO CAI Primary Care [...] [place] MEDICARE SUPPLEMEN MASTER PSUED O MEDEX [facility] E Mar 19, 2004 [id number] [phone] HOLLIE SHEPHERD PATIENT [place] MED[place] SUPPLEMEN MASTER MEDEX [facility] E Mar 19, 2004 [id number] [phone] HOLLIE SHEPHERD [place] SUPPLEMEN MASTER MEDEX [place] E Mar 19, 2004 [id number] [phone] HOLLIE SHEPHERD PATIENT BCBS [facility] MEDICARE SUPPLEMEN MASTER PSUED O MEDEX BRONZ E Mar 19, 2004 [id number] [phone] HOLLIE SHEPHERD PATIENT MEDICARE (WNR) MEDICARE (M) PART B Mar 19, 2004 PART B [id number] HOLLIE SHEPHERD PATIENT MEDICARE (WNR) MEDICARE (M) PART B Mar 19, 2004 PART B [id number] HOLLIE SHEPHERD PATIENT MEDICARE (WNR) MEDICARE (M) PART B Mar 19, 2004 PART B [id number] [phone] CORAHOLLIE SILVA PATIENT MEDICARE (WNR) MEDICARE () PART A Feb 17, 2003 PART A [id number] CORAHOLLIE SILVA PATIENT MEDICARE (WNR) MEDICARE (M) PART A Feb 17, 2003 PART A [id number] HOLLIE SHEPHERD PATIENT MEDICARE (WNR) MEDICARE (M) PART A Feb 17, 2003 PART A [id number] HOLLIE SHEPHERD PATIENT MEDICARE (WNR) MEDICARE () PART A Feb 17, 2003 PART A [id number] HOLLIE SHEPHERD PATIENT MEDICARE (WNR) MEDICARE () PART B Feb 17, 2003 PART B [id number] [phone] HOLLIE SHEPHERD PATIENT MEDICARE (WNR) MEDICARE () PART A Feb 17, 2003 PART A [id number] HOLLIE SHEPHERD PATIENT MEDICARE (WNR) MEDICARE () PART B Feb 17, 2003 PART B [id number] HOLLIE SHEPHERD PATIENT Selected Encounter This [...] 03:49 PM PRIMARY Actinic keratosis [facility] [place] [facility] Apr 23, 2024 03:49 PM SECONDARY Inflamed [facility] [place] [facility] Apr 23, 2024 03:49 PM SECONDARY Other melanin [facility]pig[facility] [place] [facility] Apr 23, 2024 03:49 PM SECONDARY Other seborrheic dermatitis [facility] [place] [facility] Apr 23, 2024 03:49 PM SECONDARY Other seborrheic keratosis [facility] [place] [facility] Apr 23, 2024 03:49 PM SECONDARY Personal history of other malignant neoplasm of skin [facility] [place] [facility] Plan of Treatment: Future Appointments (+ 6 months) and Future Tests (+/- 45 days) The Plan of Treatment section includes future care activities for the [facility] This section includes future appointments [...] MEDICIN E [facility] [place] [facility] Apr 12, 2024 09:45 AM AMBULATORY - MEDICINE [facility] [place] [facility] Apr 16, 2024 10:00 AM AMBULATORY - REHAB MEDICIN E [facility] [place] [facility] May 02, 2024 10:00 AM AMBULATORY - REHAB MEDICIN E [facility] [place] [facility] May 08, 2024 10:00 AM AMBULATORY - REHAB MEDICIN E [facility] [place] [facility] May 29, 2024 11:30 AM AMBULATORY - MEDICINE [facility] [facility] Jun 05, 2024 12:00 PM AM[place]UL[place] [facility] Jun 05, 2024 12:00 PM AMBULATORY - PSYCHIATRY [facility] [place] [facility] Jun 17, 2024 10:30 AM AMBULATORY - MEDICINE [facility] [place] [facility] Jun 17, 2024 10:31 AM AMBULATORY - MEDICINE [facility] [place] [facility] Jun 17, 2024 11:45 AM AMBULATORY - NONE [facility] [place] [facility] Jun 21, 2024 11:00 AM AMBULATORY - MEDICINE [facility] [place] [facility] Jul 05, 2024 10:00 AM AMBULATORY - MEDICINE [facility] [place] [facility] Jul 10, 2024 08:00 AM AMBULATORY - MEDICINE [facility] [place] [facility] Jul 10, 2024 01:30 PM AMBULATORY - MEDICINE [facility] [place] [facility] Aug 01, 2024 11:00 AM AMBULATORY - MEDICINE [facility] [place] [facility] Aug 06, 2024 10:00 AM AMBULATORY - MEDICINE [facility] [place] [facility] Aug 16, 2024 02:00 PM AMBULATORY - MEDICINE [facility] [place] [facility] Aug 20, 2024 09:00 AM AMBULATORY - MEDICINE [facility] [place] [facility] Aug 22, 2024 11:00 AM AMBULATORY - MEDICINE [facility] [place] [facility] Social History: Smoking Status (Most [...] took place. Date/Time Current Smoking Status Comment [facility] Jun 05, 2023 11:00 AM VA-TOBACCO FORMER USER NE [facility] [place] [facility] Tobacco Use History This section includes a history of the smoking, or tobacco-related health factors, that were collected on or before the date of the Encounter. The data comes from the NE facility where the Encounter took place. Date/Time Smoking Status/Tobac co Use Comment Facility Jun 05, 2023 11:00 AM VA-TOBACCO QUIT 15 YRS OR MORE [facility] [place] [facility] Jun 06, 2022 01:00 PM VA-TOBACCO FORMER USER [facility] [place] [facility] Jun 06, 2022 01:00 PM VA-TOBACCO QUIT 15 YRS OR MORE [facility] [place] [facility] Jun 30, 2021 02:37 PM VA-TOBACCO FORMER USER NE [facility] [place] [facility] Jun 30, 2021 02:37 PM VA-TOBACCO QUIT 5 TO < 15 YRS NE [facility] [place] [facility] May 22, 2020 03:30 PM VA-TOBACCO NEVER USED NE [facility] [place] [facility] May 08, 2018 02:03 PM VA-TOBACCO FORMER USER [place] [facility] [facility] May 08, 2018 02:03 PM VA-TOBACCO QUIT 15 YRS OR MORE [place] [facility] [facility] November 10, 2017 02:33 PM QUIT TOBACCO USE > 7 YEARS AGO NE [facility] [place] [facility] October 21, 2016 01:55 PM QUIT TOBACCO USE > 7 YEARS AGO [place] [facility] [place] [facility] Sep 18, 2015 11:24 AM QUIT TOBACCO USE > 7 YEARS AGO stopped 50 years ago NE [facility] [place] [facility] May 19, 2005 08:01 AM HISTORY OF SMOKING [place] [facility] [place] [facility] May 31, 2004 01:02 PM HISTORY OF SMOKING [place] [facility] [place] [facility] Jun 04, 2003 07:57 AM HISTORY OF SMOKING [place] [facility] [facility] Jun 03, 2002 01:11 PM HISTORY OF SMOKING [place] [facility] [place] [facility] Jun 03, 2002 01:11 PM QUIT TOBACCO USE > 7 [facility] Advance Directives: All historical and [...] DIRECTIVE JENNIFER QUIROS NE CNT [facility] Radiology Reports: +/- 30 days [...] comes from all NE treatment facilities. Date/Time Radiology Report Provider Source Apr 02, 2024 02:24 PM SHOULDER,COMPLETE(RIGHT): BEBO SHEPHERD [id number] [phone] M Exm Date: APR 02, 2024@14:24 Req Phys: TOÑO CAI Loc: CWM/NO/PACT 3 (Req'g Loc) Img Loc: [facility] 1 Service: [place] [address] (Case 50 COMPLETE) SHOULDER,COMPLETE(RIGHT) (RAD Detailed) CPT:47036 Reason for Study: lateral pain after a fall last week. Clinical History: Report Status: Verified Date Reported: APR 02, 2024 Date Verified: APR 02, 2024 Reimbursement Specialist E-Sig:/ES/NAPOLEON ELLIOTT JR Report: Study: AP [...] Primary Interpreting Staff: NAPOLEON ELLIOTT JR, Radiologist (Reimbursement Specialist) /NAPOLEON SCHMITZ JR [facility] Encounter Notes: All associated encounter notes [...] STATUS: COMPLETED APR 04, 2024 BEBO SHEPHERD Feb 86 PATIENT PHONE - Patient here for FOLLOW UP CHIEF COMPLAINT: h/o BCC, AKs HPI: Reviewed records from last Dermatology visit: 10/10/23; Bx to R hindu = SK, Bx to central upper forehead = AK, hypertrophic, but base inadequately represented and SCC cannot be entirely ruled out. Alma reports a new lesion on L side [...] plaques noted to R pre-auricular area, L hindu -upper central forehead 1 cm erythematous hyperkeratotic papule Diagnosis/Plan: #Actinic Keratosis: - educated on relationship to squamous cell carcinoma. [...] lesions or changes #Seborrheic Keratoses, Irritated -The Alma was educated regarding the benign nature, but [...] as prescribed RTC 6-12m, sooner PRN * Alma educated to RTC ivanna if any new, changing, symptomatic lesions. * Education on sun protection and avoidance strategies was provided. * Differential diagnosis, prescription options and risks/benefits were discussed with the patient, who consented to treatment plan. * Alma consented to photography for documentation if indicated. [...] of active outpatient prescriptions dispensed from this NE (local) and dispensed from another NE or [...] Remote Allergy/ADR Data available for this patient [facility] [place] [facility] METFORMIN [place] CNT [place] [facility] PENICILLIN [facility] [place] [facility] ZOSYN Med Recon [place] (Tool #1) INCLUDED IN THIS LIST: Alphabetical list of active outpatient prescriptions dispensed from this NE (local) and dispensed from another NE or [facility] facility (remote) as well as inpatient orders (local pending and active), local clinic medications, locally documented non-VA medications, and local prescriptions that have or been discontinued in the past 90 days. Non-VA Meds Last Documented On: Oct 09, 2023 NOTE The display of VA prescriptions dispensed from another NE or DoD facility (remote) is limited to active outpatient prescription entries matched to National Drug File at the originating site and may not include some items such as investigational drugs, compounds, etc. NOT INCLUDED IN THIS LIST: Medications self-entered by the patient into personal health records (i.e. MDCapsule) are NOT included in this list. Non-VA [...] ONE-HALF TABLET BY MOUTH ONCE DAILY Rx# [id number] Last Released: 01/02/24 Qty/Days Supply: Rx Expiration Date: 04/26/24 Refills Remainin Indication: FOR HIGH CHOLESTEROL OUTPT ATORVASTATIN CALCIUM 80MG TAB (Status = Active) TAKE ONE-HALF TABLET BY MOUTH ONCE DAILY Rx# [id number] Last Released: 04/03/24 Qty/Days Supply: 45 Rx Expiration Date: 02/27/25 Refills Remainin Indication: FOR HIGH CHOLESTEROL OUTPT CALCIUM 200MG (CA CITRATE-950MG) TAB (Status = Active) TAKE FOUR TABLETS BY MOUTH TWICE DAILY Rx# [id number] Last Released: 12/15/23 Qty/Days Supply: Rx Expiration Date: 11/27/24 Refills Remainin Indication: FOR OSTEOPOROSIS Non-VA CHOLECALCIF 50MCG (D3-2,000UNIT) TAB TAKE ONE TABLET BY MOUTH ONCE DAILY Aug 11, 2020 Non-VA medication not recommended by VA provider. OUTPT CITALOPRAM HYDROBROMIDE 10MG TAB (Status = Active) TAKE ONE-HALF TABLET BY MOUTH ONCE DAILY FOR DEPRESSION AND ANXIETY Rx# [id number] Last Released: 03/01/24 Qty/Days Supply: Rx Expiration Date: 02/28/25 Refills Remainin Indication: FOR MAJOR DEPRESSIVE DISORDER OUTPT CITALOPRAM HYDROBROMIDE 20MG TAB (Status = Discontinued) TAKE ONE-HALF TABLET BY MOUTH ONCE DAILY FOR MOOD Rx# [id number] Last Released: 12/20/23 Qty/Days Supply: Rx Expiration [...] DAY NEEDED FOR LOW BLOOD SUGAR Rx# [id number] Last Released: Qty/Days Supply: Rx Expiration Date: 04/03/25 Refills Remainin Indication: FOR LOW BLOOD SUGAR OUTPT INSULIN,ASPART,HUMAN 100 UNIT/ML INJ (Status = Active) INJECT 80 UNITS SUBCUTANEOUSLY EVERY DAY DIRECTED FOR USE WITH CONTINUOUS SUBCUTANEOUS INSULIN INFUSION DEVICE Rx# [id number] Last Released: 01/24/24 Qty/Days Supply: Rx Expiration Date: 04/17/24 Refills Remainin OUTPT KETOCONAZOLE 2% CREAM (Status = Active) APPLY A THIN LAYER TOPICALLY TWICE DAILY RASH APPLY TO AFFECTED AREAS ON FACE TWICE DAILY FOR 4 WEEKS, THEN NEEDED Rx# [id number] Last Released: 07/21/23 Qty/Days Supply: 12030 Rx Expiration Date: 07/13/24 Refills Remainin Indication: RASH OUTPT KETOCONAZOLE 2% SHAMPOO (Status = Active) SHAMPOO SMALL AMOUNT TOPICALLY TWICE A WEEK NEEDED APPLY FOR 8 WEEKS, THEN NEEDED Rx# [id number] Last Released: 07/21/23 Qty/Days Supply: 240/30 Rx Expiration Date: 07/13/24 Refills Remainin Indication: SCALP RASH OUTPT LEFLUNOMIDE 10MG TAB (Status = Active) TAKE ONE TABLET BY MOUTH ONCE DAILY FOR 14 DAYS, THEN TAKE TWO TABLETS ONCE DAILY Rx# [id number] Last Released: 03/26/24 Qty/Days Supply: 60 Rx Expiration Date: 03/26/25 Refills Remainin Non-VA LOSARTAN 100MG TAB TAKE ONE TABLET BY MOUTH DAILY OUTPT MULTIVIT/OPHTH AREDS2/LUTE/ZEAX CAP/TAB (Status = ) TAKE 1 CAPSULE BY MOUTH TWICE DAILY IN THE MORNING AND EVENING, WITH FOOD Rx# [id number] Last Released: 02/26/24 Qty/Days Supply: 120/60 Rx Expiration Date: 03/29/24 Refills Remainin Non-VA OMEPRAZOLE 20MG EC CAP TAKE 1 CAPSULE BY MOUTH EVERY DAY OUTPT OXYCODONE HCL 5MG TAB NOT SA (Status = ) TAKE ONE TABLET BY MOUTH EVERY 6 HOURS NEEDED FOR SEVERE PAIN Rx# [id number] Last Released: 02/21/24 Qty/Days Supply: 02/10 Rx Expiration Date: 03/19/24 Refills Remainin OUTPT OXYCODONE HCL 5MG/APAP 325MG TAB (Status = ) TAKE 1 TABLET BY MOUTH EVERY 6 HOURS NEEDED FOR PAIN Rx# [id number] Last Released: 01/01/24 Qty/Days Supply: 10/18 Rx Expiration Date: 01/31/24 Refills Remainin Non-VA PILOCARPINE HCL 5MG TAB TAKE ONE TABLET BY MOUTH TWICE DAILY Dec 04, 2020 Non-VA medication not recommended by VA provider. OUTPT PREDNISONE 10MG TAB (Status = Discontinued) TAKE ONE TABLET BY MOUTH ONCE DAILY Rx# [id number] Last Released: 12/13/23 Qty/Days Supply: 12/23 Rx Expiration Date: 01/07/24 Refills Remainin OUTPT PREDNISONE 1MG TAB (Status = Discontinued) TAKE FOUR TABLETS BY MOUTH ONCE DAILY Rx# [id number] Last Released: 12/29/23 Qty/Days Supply: 12030 Rx Expiration Date: 10/16/24 Refills Remainin OUTPT PREDNISONE 1MG TAB (Status = Active) TAKE FOUR TABLETS BY MOUTH ONCE DAILY Rx# [id number] Last Released: 03/01/24 Qty/Days Supply: 12030 Rx Expiration Date: 02/26/25 Refills Remainin OUTPT TAMSULOSIN HCL 0.4MG CAP (Status = Discontinued) TAKE ONE CAPSULE BY MOUTH AT BEDTIME FOR ENLARGED PROSTATE Rx# [id number] Last Released: 10/11/23 Qty/Days Supply: Rx Expiration Date: 10/10/24 Refills Remainin Indication: FOR ENLARGED PROSTATE OUTPT TAMSULOSIN HCL 0.4MG CAP (Status = Active) TAKE TWO CAPSULES BY MOUTH AT BEDTIME Rx# [id number] Last Released: 01/24/24 Qty/Days Supply: 180/ Rx Expiration Date: 01/22/25 Refills Remainin OUTPT TOCILIZUMAB 162MG/0.9ML INJ SYR 0.9ML (Status = Active) INJECT 162MG SUBCUTANEOUSLY EVERY 2 WEEKS Rx# [id number] Last Released: 03/14/24 Qty/Days Supply: 08/16 Rx Expiration Date: 11/17/24 Refills Remainin SUPPLIES OUTPT NEEDLE 18G 1IN (Status = Active) USE 1 NEEDLE EVERY 7 DAYS FOR INJECTION Rx# [id number] Last Released: 07/21/23 Qty/Days Supply: Rx Expiration Date: 04/27/24 Refills Remainin OUTPT NEEDLE 23G 1IN (Status = Active) USE 1 NEEDLE EVERY 7 DAYS FOR INJECTION Rx# [id number] Last Released: 07/20/23 Qty/Days Supply: Rx Expiration Date: 04/27/24 Refills Remainin OUTPT SYRINGE 1ML LUER LOCK TIP (Status = Active) USE 1 SYRINGE EVERY 7 DAYS Rx# [id number] Last Released: 07/13/23 Qty/Days Supply: Rx Expiration Date: 04/27/24 Refills Remainin /thomas/ VEGA PENA DNP, ENGINE PILOT-C NURSE PRACTITIONER Signed: 04/04/2024 14:34 VEGA PENA [facility]
--- OUTSIDE RECORDS SUMMARY | 2024-10-01 11:27 | XMS_ITS | Encounter Summary ---
Author Name Department of [facility] ([place]) Organization [facility] Address [address] [place] [id number] Care Team Providers Care Clerk Specialist Name Role Phone TOÑO CAI Primary [...] [place] MED[place] SUPPLEMEN MASTER PSUED O MEDEX [facility] E Mar 19, 2004 [id number] [phone] HOLLIE SHEPHERD PATIENT [place] SUPPLEMEN MASTER MEDEX [place] E Mar 19, 2004 [id number] [phone] HOLLIE [place]PH[place]PPLE[place] MASTER MEDEX [place] E Mar 19, 2004 [id number] [phone] HOLLIE SHEPHERD PATIENT BCBS [facility] MEDICARE SUPPLEMEN MASTER PSUED O MEDEX BRONZ E Mar 19, 2004 [id number] HOLLIE SHEPHERD PATIENT MEDICARE (WNR) MEDICARE (M) PART B Mar 19, 2004 PART B [id number] [phone] HOLLIE SHEPHERD PATIENT MEDICARE (WNR) MEDICARE (M) PART B Mar 19, 2004 PART B [id number] CORAHOLLIE SILVA ALD PATIENT MEDICARE (WNR) MEDICARE (M) PART B Mar 19, 2004 PART B [id number] CORAHOLLIE SILVA ALD PATIENT MEDICARE (WNR) MEDICARE (M) PART A Feb 17, 2003 PART A [id number] [phone] CORAHOLLIE SILVA ALD PATIENT MEDICARE (WNR) MEDICARE (M) PART A Feb 17, 2003 PART A [id number] CORAHOLLIE SILVA ALD PATIENT MEDICARE (WNR) MEDICARE (M) PART A Feb 17, 2003 PART A [id number] HOLLIE SHEPHERD PATIENT MEDICARE (WNR) MEDICARE (M) PART A Feb 17, 2003 PART A [id number] CORAHOLLIE SILVA PATIENT MEDICARE (WNR) MEDICARE (M) PART B Feb 17, 2003 PART B [id number] [phone] CORAHOLLIE SILVA PATIENT MEDICARE (WNR) MEDICARE (M) PART A Feb 17, 2003 PART A [id number] [phone] HOLLIE SHEPHERD PATIENT MEDICARE (WNR) MEDICARE (M) PART B Feb 17, 2003 PART B [id number] HOLLIE SHEPHERD PATIENT Selected Encounter This section includes the information on record at [place] for the Encounter. 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 Date/Time Primary/Secondary Diagnosis Diagnosis Name Provider Source Sep 03, 2024 11:33 AM PRIMARY Type 2 diabetes mellitus with unspecified complications [facility] [place] [facility] Sep 03, 2024 11:33 AM SECONDARY Presence of insulin pump (external) (internal) ALLIE CUELLO [facility] Plan of Treatment: Future Appointments (+ 6 months) and Future Tests (+/- 45 days) The Plan of Treatment section includes future care activities for the patient from all [place] [facility]. This section includes future appointments and future orders which are active, pending or scheduled. Future Appointments This section includes appointments that were scheduled to occur 6 months from the date of the Encounter, up to a maximum of 20 appointments. The data comes from all [facility]. Appointment Date/Time Appointment Type Appointme nt Facility Name Sep 27, 2024 11:00 AM AMBULATORY - PSYCHIATRY [facility] Oct 03, 2024 02:00 PM [facility] Oct 08, 2024 11:00 AM AMBULATORY - NONE [facility] November 15, 2024 11:00 AM AMBULATORY - MEDICINE [facility] Nov 27, 2024 11:00 AM AMBULATORY - MEDICINE [facility] Active, Pending, and Scheduled Orders This section includes a listing of several types of active, pending, and scheduled orders, including clinic medications orders, diagnostic test orders, procedure orders and consult orders; where the start date of the order is 45 days before the date of the Encounter or 45 days after the date of theEncounter. The data comes from all [facility]. Test Date/Time Test Type Test Details Facility Name Aug 22, 2024 12:00 AM Laboratory - Chemi stry Order CALCIUM BLOOD (SST-SERUM) [facility] Aug 22, 2024 12:00 AM Laboratory - Chemi stry Order C-PEPTIDE (q) BLOOD (SST-SERUM) [facility] Lab Results: +/- 30 days of [...] Type Comment Aug 07, 2024 07:58 AM [facility] FERRITIN SERUM Specimen Type: SERUM No comment entered. Ordering Provider: SILVIA CAI Report Released Date/Time: Jul 24, 2024 11:22 AM Reporting Lab: [address] [address] Performing Lab: [address] [address] FERRITIN 69 ng/mL 20-300 Aug 07, 2024 07:58 AM [facility] IRON & TIBC PANEL SERUM Specimen Type: SERUM No comment entered. Ordering Provider: TOÑO CAI Report Released Date/Time: Jul 24, 2024 11:22 AM Reporting Lab: [address] [address] Performing Lab: [address] [address] TIBC 350 ug/dL 204-475 IRON 53 ug/dL 40-160 Transferrin Saturation 15.2 L 20.0-50.0 Transferrin (TRF) 265 mg/dL 200-360 Aug 07, 2024 07:58 AM [facility] LIVER FUNCTION SERUM Specimen Type: SERUM No comment entered. Ordering Provider: TOÑO CAI Report Released Date/Time: Jul 24, 2024 11:22 AM Reporting Lab: [address] [address] Performing Lab: [address] [address] PROTEIN,TOTAL 5.5 g/dL L 6.0-8.3 ALBUMIN 3.5 g/dL 3.5-5.0 ALKALINE PHOSPHATASE 82 U/L 40-150 AST 25 U/L 5-34 ALT 27 U/L BILIRUBIN, TOTAL 0.7 mg/dL 0.2-1.2 Aug 07, 2024 07:58 AM [facility] BASIC METABOLIC PANEL (fasting) SERUM Specime n Type: SERUM No comment entered. Ordering Provider: TOÑO CAI Report Released Date/Time: Jul 24, 2024 11:22 AM Reporting Lab: [facility] [address] [facility] [address] Performing Lab: [facility] [address] [address] UREA NITROGEN 18 mg/dL 7-25 GLUCOSE 150 mg/dL H 65-100 SODIUM 143 mmol/L 135-145 POTASSIUM 3.4 mmol/L L 3.5-5.0 CHLORIDE 106 mmol/L 100-110 CO2 26 meq/L 20-30 CALCIUM 9.1 mg/dL 8.5-10.2 CREATININE, Serum 0.75 mg/dL 0.50-1.40 eGFR(CKD-EPI 2020) 87 mL/min >60 Aug 07, 2024 07:58 AM [facility] CBC AND DIFF (AUTO) BLOOD Specimen Type: BLOO D No comment entered. Ordering Provider: TOÑO CAI Report Released Date/Time: Jul 24, 2024 11:22 AM Reporting Lab: [facility] [address] [address] Performing Lab: [address] [address] WBC 3.96 10*3/uL L 4.50-11.00 RBC 4.18 [...] 10*3/uL 0.00-0.00 Aug 07, 2024 07:58 AM [facility] OSMOLALITY (SERUM) SERUM Specimen Type: SERUM Comment: Manually entered by: RTO Ordering Provider: ALLIE CUELLO Report Released Date/Time: Jul 24, 2024 02:18 PM Reporting Lab: [address] [address] Performing Lab: [facility] [address] [facility] [address] OSMOLALITY (SERUM) 305 H 280-300 Aug 07, 2024 07:58 AM [facility] VITAMIN D (25-OH) SERUM Specimen Type: SERUM No comment entered. Ordering Provider: ALLIE CUELLO Report Released Date/Time: Jul 24, 2024 02:18 PM Reporting Lab: [address] [address] Performing Lab: [address] [address] VITAMIN D (25-OH) 41 ng/mL 20-50 Aug 07, 2024 07:58 AM [facility] BASIC METABOLIC PANEL (non-fasting) SERUM Spe cimen Type: SERUM No comment entered. Ordering Provider: ALLIE CUELLO Report Released Date/Time: Jul 24, 2024 02:18 PM Reporting Lab: [address] [address] Performing Lab: [address] [address] UREA NITROGEN 19 mg/dL 7-25 GLUCOSE 149 mg/dL H 65-100 SODIUM 141 mmol/L 135-145 POTASSIUM 3.4 mmol/L L 3.5-5.0 CHLORIDE 106 mmol/L 100-110 CO2 26 meq/L 20-30 CALCIUM 9.0 mg/dL 8.5-10.2 CREATININE, Serum 0.73 mg/dL 0.50-1.40 eGFR(CKD-EPI 2020) 88 mL/min >60 Aug 07, 2024 07:58 AM [facility] HEMOGLOBIN A1C PANEL BLOOD Specimen Type: BLO [...] Jul 24, 2024 02:23 PM Reporting Lab: [facility] [employer] [address] Performing Lab: [facility] [employer] [address] HEMOGLOBIN A1C 5.9 H 4.0-5.6 Aug 07, 2024 07:58 AM [facility] MICROALBUMIN CREATININE RATIO PANEL URINE Spe cimen Type: URINE No comment entered. Ordering Provider: ALLIE CUELLO Report Released Date/Time: Jul 24, 2024 02:23 PM Reporting Lab: [facility] [place] [facility] [address] [address] Performing Lab: [facility] [employer] [address] MICROALBUMIN/CREATININE RATIO 52.0 mg/g H 0-29.9 MICROALBUMIN,QUANTITATIVE [...] 107/64 16 94 5 64.5 160 27 [place] [facility] [place] [facility] Social History: Smoking Status (Most current) and [...] AM VA-TOBACCO USE FOR TAMMY CIGARETTES [place] [facility] [place] [facility] Tobacco Use History This section includes a history of the smoking, or tobacco-related health factors, that were collected on or before the date of the Encounter. The data comes from the [place] facility where the Encounter took place. Date/Time Smoking Status/Tobac co Use Comment Facility Jun 17, 2024 10:31 AM VA-TOBACCO USE FORMER CIGARETTES [facility] [place] [facility] Jun 05, 2023 11:00 AM VA-TOBACCO FORMER USER [facility] [place] [facility] Jun 05, 2023 11:00 AM VA-TOBACCO QUIT 15 YRS OR MORE [facility] [place] [facility] Jun 06, 2022 01:00 PM VA-TOBACCO FORMER USER [facility] [place] [facility] Jun 06, 2022 01:00 PM VA-TOBACCO QUIT 15 YRS OR MORE [facility] [place] [facility] Jun 30, 2021 02:37 PM VA-TOBACCO FORMER USER [facility] [place] [facility] Jun 30, 2021 02:37 PM VA-TOBACCO QUIT 5 TO < 15 YRS [facility] [place] [facility] May 22, 2020 03:30 PM VA-TOBACCO NEVER USED [facility] [place] [facility] May 08, 2018 02:03 PM VA-TOBACCO FORMER USER [facility] [place] [facility] May 08, 2018 02:03 PM VA-TOBACCO QUIT 15 YRS OR MORE [facility] [place] [facility] November 10, 2017 02:33 PM QUIT TOBACCO USE > 7 YEARS AGO [facility] [place] [facility] October 21, 2016 01:55 PM QUIT [facility] Sep 18, 2015 11:24 AM QUIT TOBACCO USE > 7 YEARS AGO stopped 50 years ago [facility] May 19, 2005 08:01 AM [facility] May 31, 2004 01:02 PM [facility] Jun 04, 2003 07:57 AM [facility] Jun 03, 2002 01:11 PM [facility] Jun 03, 2002 01:11 PM QUIT TOBACCO USE > 7 [facility] Advance Directives: All historical and [...] Jun 02, 2023 ADVANCE DIRECTIVE JENNIFER QUIROS [facility] Encounter Notes: All associated encounter notes This section contains the clinical notes associated to the Encounter. Date/Time Encounter Note(s) Provider Source Aug 22, 2024 12:25 PM PHYSICIAN NOTE: LOCAL TITLE: MD NOTE STANDARD TITLE: PHYSICIAN NOTE DATE OF NOTE: AUG 22, 2024@12:25 ENTRY DATE: AUG 22, 2024@12:25:22 AUTHOR: ALLIE CUELLO COSIGNER: URGENCY: STATUS: COMPLETED Dx: DM 1 insulin pump present Pt Name:Bebo Shepherd Pt : 1940 MR# [id number] Indication for device placement Date placed: Aug 03 2024 Date removed date to which the CPT code is linked): report date Aug 16 2024 (uploaded August 22 2025) Name of device placed:Tandem T:slim X2 insulin pump with control IQ technology and Dexcom G7 sensors date of printout of data: Date of interpretation: Aug 22 2024 Analysis of data (72 hours or more of monitoring required): Average 178 SD 48 %CV 27% GMI 7.6 Very high 7.3% High 40% In range 52% Low 0.5% Very low 0.1% MN 150, 4AM 150, 8AM 180, noon 220, 4PM 190, 8PM 160 Variability modest to moderate TDD 51.67 units Basal 25% 12.93 units Bolus 75% Food 80% Override 5% Control IQ 13% Correction 2% Basal MN to 4AM 0.275 u/h, then 0.325 u/h until 6AM, then 1.075 u/h until 11:30 AM, then 1.1 u/h until 8PM, then 0.9 u/h Bolus: ICR MN to 11:30AM 5.6, then 5.2 until 8PM, then 6 ISF MN to4:30 PM 46, then 42. Interpretation of data He is using pump correctly, bolusing by entering CHO. He would benefit from tightening bfast ICR, and he agrees. He will decline more than one bolus request for elevated bg until 4 hours have passed since last bolus. CPT code for interpretation [id number] /thomas/ ALLIE CUELLO MD STAFF PHYSICIAN Signed: 08/22/2024 12:36 ALLIE CUELLO [facility]
--- OUTSIDE RECORDS SUMMARY | 2024-10-01 11:27 | XMS_ITS | Encounter Summary ---
Author Name [facility] [place] [facility] [place] Address [address] [place] [id number] Care Team Providers Care Marble Setter Name Role Phone TOÑO CAI Primary Care [...] O MEDEX BRONZ E Mar 19, 2004 [id number] HOLLIE SHEPHERD PATIENT [place] SUPPLEMEN MASTER MEDEX BRONZ E Mar 19, 2004 [id number] HOLLIE SHEPHERD [place] SUPPLEMEN MASTER MEDEX BRONZ E Mar 19, 2004 [id number] HOLLIE SHEPHERD PATIENT BCBS [facility] MEDICARE SUPPLEMEN MASTER PSUED O MEDEX BRONZ E Mar 19, 2004 [id number] [phone] HOLLIE SHEPHERD PATIENT MEDICARE (WNR) MEDICARE (M) PART B Mar 19, 2004 PART B [id number] CORAHOLLIE SILVA PATIENT MEDICARE (WNR) MEDICARE (M) PART B Mar 19, 2004 PART B [id number] [phone] CORAHOLLIE SILVA ALD PATIENT MEDICARE (WNR) MEDICARE (M) PART B Mar 19, 2004 PART B [id number] CORAHOLLIE SILVA ALD PATIENT MEDICARE (WNR) MEDICARE (M) PART A Feb 17, 2003 PART A [id number] CORAHOLLIE SILAV ALD PATIENT MEDICARE (WNR) MEDICARE (M) PART A Feb 17, 2003 PART A [id number] [phone] CORAHOLLIE SILVA PATIENT MEDICARE (WNR) MEDICARE (M) PART A Feb 17, 2003 PART A [id number] HOLLIE SHEPHERD PATIENT MEDICARE (WNR) MEDICARE (M) PART A Feb 17, 2003 PART A [id number] [phone] CORAHOLLIE SILVA PATIENT MEDICARE (WNR) MEDICARE (M) PART B Feb 17, 2003 PART B [id number] CORAHOLLIE SILVA PATIENT MEDICARE (WNR) MEDICARE (M) PART A Feb 17, 2003 PART A [id number] [phone] HOLLIE SHEPHERD PATIENT MEDICARE (WNR) MEDICARE (M) PART B Feb 17, 2003 PART B [id number] [id number] [phone] HOLLIE SHEPHERD PATIENT Selected Encounter This section includes the information [place] for the Encounter. Date/Time Encounter Type Encounter Description Reason Provider Source Aug 01, 2024 11:00 AM OFF/OP CNSLTJ NEW/EST MOD 40 OTOLARYNGOLOGY/EN T ICD-10-CM R42 Dizziness and giddiness CHERYL TAVERAS Mikey Encounter Template Text not used by [place] Assessments - Encounter Diagnoses This section includes the primary and secondary diagnoses documented for the Encounter. Date/Time Primary/Secondary Diagnosis Diagnosis Name Provider Source Aug 16, 2024 10:26 AM PRIMARY Dizziness and giddiness VEDA TAVERAS [place] [facility] [facility] Aug 16, 2024 10:26 AM SECONDARY Sensorineural hearing loss, bilateral [facility]AS [facility] [place] [facility] Plan of Treatment: Future Appointments (+ [...] 20 appointments. The data comes from all [facility]. Appointment Date/Time Appointment Type Appointme nt Facility Name Aug 06, 2024 10:00 AM AMBULATORY - MEDICINE [place] [facility] [facility] Aug 16, 2024 02:00 PM AMBULATORY - MEDICINE [place] [facility] [facility] Aug 20, 2024 09:00 AM AMBULATORY - MEDICINE [place] [facility] [facility] Aug 22, 2024 11:00 AM AMBULATORY - MEDICINE [place] [facility] [facility] Sep 27, 2024 11:00 AM AMBULATORY - PSYCHIATRY [place] [facility] [facility] Oct 03, 2024 02:00 PM AMBULATORY - MEDICINE [place] [facility] [facility] Oct 08, 2024 11:00 AM AMBULATORY - NONE [place] [facility] [place] [facility] November 15, 2024 11:00 AM AMBULATORY - MEDICINE [place] [facility] [facility] Nov 27, 2024 11:00 AM AMBULATORY - MEDICINE [place] [facility] [place] [facility] Active, Pending, and Scheduled Orders This section includes a listing of several types of active, pending, and scheduled orders, including clinic medications orders, diagnostic test orders, procedure orders and consult orders; where the start date of the order is 45 days before the date of the Encounter or 45 days after the date of theEncounter. The data comes from all [facility]. Test Date/Time Test Type Test Details Facility Name Jun 17, 2024 12:00 AM Laboratory - Chemi stry Order FERRITIN BLOOD (SST-SERUM) SP [place] [facility] [facility] Jun 17, 2024 12:00 AM Laboratory - Chemi stry Order IRON & TIBC PANEL BLOOD (SST[facility]SERUM) [facility] Jul 05, 2024 09:52 AM Consult Order COMMUNITY CARE-RHEUMATOLOGY Cons Cia Agent's Choice [facility] Aug 22, 2024 12:00 AM Laboratory - Chemi stry Order CALCIUM BLOOD (SST-SERUM) [facility] Aug 22, 2024 12:00 AM Laboratory - Chemi stry Order C-PEPTIDE (q) BLOOD (SST-SERUM) SP [facility] Lab Results: +/- 30 days of [...] Type Comment Aug 07, 2024 07:58 AM [facility] FERRITIN SERUM Specimen Type: SERUM No comment entered. Ordering Provider: SILVIA CAI Report Released Date/Time: Jul 24, 2024 11:22 AM Reporting Lab: [address] [address] Performing Lab: [address] [address] FERRITIN 69 ng/mL 20-300 Aug 07, 2024 07:58 AM [facility] IRON & TIBC PANEL SERUM Specimen Type: SERUM No comment entered. Ordering Provider: TOÑO CAI Report Released Date/Time: Jul 24, 2024 11:22 AM Reporting Lab: [address] [address] Performing Lab: [address] [address] TIBC 350 ug/dL 204-475 IRON 53 ug/dL 40-160 Transferrin Saturation 15.2 L 20.0-50.0 Transferrin (TRF) 265 mg/dL 200-360 Aug 07, 2024 07:58 AM [facility] LIVER FUNCTION SERUM Specimen Type: SERUM No comment entered. Ordering Provider: TOÑO CAI Report Released Date/Time: Jul 24, 2024 11:22 AM Reporting Lab: [facility] [address] [facility] [address] Performing Lab: [address] [address] PROTEIN,TOTAL 5.5 g/dL L 6.0-8.3 ALBUMIN 3.5 g/dL 3.5-5.0 ALKALINE PHOSPHATASE 82 U/L 40-150 AST 25 U/L 5-34 ALT 27 U/L BILIRUBIN, TOTAL 0.7 mg/dL 0.2-1.2 Aug 07, 2024 07:58 AM [facility] BASIC METABOLIC PANEL (fasting) SERUM Specime n Type: SERUM No comment entered. Ordering Provider: TOÑO CAI Report Released Date/Time: Jul 24, 2024 11:22 AM Reporting Lab: [address] [address] Performing Lab: [address] [address] UREA NITROGEN 18 mg/dL 7-25 GLUCOSE 150 mg/dL H 65-100 SODIUM 143 mmol/L 135-145 POTASSIUM 3.4 mmol/L L 3.5-5.0 CHLORIDE 106 mmol/L 100-110 CO2 26 meq/L 20-30 CALCIUM 9.1 mg/dL 8.5-10.2 CREATININE, Serum 0.75 mg/dL 0.50-1.40 eGFR(CKD-EPI 2020) 87 mL/min >60 Aug 07, 2024 07:58 AM [facility] CBC AND DIFF (AUTO) BLOOD Specimen Type: BLOO D No comment entered. Ordering Provider: TOÑO CAI Report Released Date/Time: Jul 24, 2024 11:22 AM Reporting Lab: [address] [address] Performing Lab: [address] [place] [address] WBC 3.96 10*3/uL L 4.50-11.00 RBC 4.18 [...] 10*3/uL 0.00-0.00 Aug 07, 2024 07:58 AM [facility] OSMOLALITY (SERUM) SERUM Specimen Type: SERUM Comment: Manually entered by: RTO Ordering Provider: ALLIE CUELLO Report Released Date/Time: Jul 24, 2024 02:18 PM Reporting Lab: [facility] [address] [facility] [address] Performing Lab: [facility] [address] [facility] [address] OSMOLALITY (SERUM) 305 H 280-300 Aug 07, 2024 07:58 AM [facility] VITAMIN D (25-OH) SERUM Specimen Type: SERUM No comment entered. Ordering Provider: ALLIE CUELLO Report Released Date/Time: Jul 24, 2024 02:18 PM Reporting Lab: [address] [address] Performing Lab: [address] [address] VITAMIN D (25-OH) 41 ng/mL 20-50 Aug 07, 2024 07:58 AM [facility] BASIC METABOLIC PANEL (non-fasting) SERUM Spe cimen Type: SERUM No comment entered. Ordering Provider: ALLIE CUELLO Report Released Date/Time: Jul 24, 2024 02:18 PM Reporting Lab: [address] [address] Performing Lab: [address] [address] UREA NITROGEN 19 mg/dL 7-25 GLUCOSE 149 mg/dL H 65-100 SODIUM 141 mmol/L 135-145 POTASSIUM 3.4 mmol/L L 3.5-5.0 CHLORIDE 106 mmol/L 100-110 CO2 26 meq/L 20-30 CALCIUM 9.0 mg/dL 8.5-10.2 CREATININE, Serum 0.73 mg/dL 0.50-1.40 eGFR(CKD-EPI 2020) 88 mL/min >60 Aug 07, 2024 07:58 AM [facility] HEMOGLOBIN A1C PANEL BLOOD Specimen Type: [...] Jul 24, 2024 02:23 PM Reporting Lab: [address] [address] Performing Lab: [address] [address] HEMOGLOBIN A1C 5.9 H 4.0-5.6 Aug 07, 2024 07:58 AM [facility] MICROALBUMIN CREATININE RATIO PANEL URINE Spe cimen Type: URINE No comment entered. Ordering Provider: ALLIE CUELLO Report Released Date/Time: Jul 24, 2024 02:23 PM Reporting [facility] [address] [address] Performing Lab: [facility] [address] [address] MICROALBUMIN/CREATININE RATIO 52.0 mg/g H 0-29.9 MICROALBUMIN,QUANTITATIVE 10.4 mg/dL RR UNAVAIL CREATININE URINE 199.85 mg/dL Social History: Smoking Status (Most current) and [...] took place. Date/Time Current Smoking Status Comment [facility] Jun 17, 2024 10:31 AM VA-TOBACCO USE FOR TAMMY CIGARETTES [facility] Tobacco Use History This section includes a history of the smoking, or tobacco-related health factors, that were collected on or before the date of the Encounter. The data comes from the [place] facility where the Encounter took place. Date/Time Smoking Status/Tobac co Use Comment [facility] Jun 17, 2024 10:31 AM VA-TOBACCO USE FORMER CIGARETTES [place] [facility] [place] [facility] Jun 05, 2023 11:00 AM VA-TOBACCO FORMER USER [place] [facility] [place] [facility] Jun 05, 2023 11:00 AM VA-TOBACCO QUIT 15 YRS OR MORE [place] [facility] [place] [facility] Jun 06, 2022 01:00 PM VA-TOBACCO FORMER USER [place] [facility] [place] [facility] Jun 06, 2022 01:00 PM VA-TOBACCO QUIT 15 YRS OR MORE [place] [facility] [facility] Jun 30, 2021 02:37 PM VA-TOBACCO FORMER USER [place] [facility] [facility] [facility] Jun 30, 2021 02:37 PM VA-TOBACCO QUIT 5 TO < 15 YRS [place] [facility] May 22, 2020 03:30 PM VA-TOBACCO NEVER USED [place] [facility] [facility] May 08, 2018 02:03 PM VA-TOBACCO FORMER USER [place] [facility] May 08, 2018 02:03 PM VA-TOBACCO QUIT 15 YRS OR MORE [place] [facility] November 10, 2017 02:33 PM QUIT TOBACCO USE > 7 YEARS AGO [place] [facility] [facility] October 21, 2016 01:55 PM QUIT TOBACCO USE > 7 YEARS AGO [place] [facility] Sep 18, 2015 11:24 AM QUIT TOBACCO USE > 7 YEARS AGO stopped 50 years ago [place] [facility] May 19, 2005 08:01 AM HISTORY [facility] SMOKING [facility] May 31, 2004 01:02 PM HISTORY OF SMOKING [place] [facility] Jun 04, 2003 07:57 AM HISTORY OF SMOKING [facility] Jun 03, 2002 01:11 PM HISTORY OF SMOKING [facility] Jun 03, 2002 01:11 PM QUIT TOBACCO USE > 7 YEARS AGO [facility] Advance Directives: All historical and [...] Jun 02, 2023 ADVANCE DIRECTIVE JENNIFER QUIROS [facility] RL [facility] Encounter Notes: All associated encounter notes This section contains the clinical notes associated to the Encounter. Date/Time Encounter Note(s) Provider Source Aug 01, 2024 02:51 PM OTOLARYNGOLOGY CONSULT: LOCAL TITLE: CONSULT REPORT/OTOLARYNGOLOGY STANDARD TITLE: OTOLARYNGOLOGY CONSULT DATE OF NOTE: AUG 01, 2024@14:51 ENTRY DATE: AUG 01, 2024@14:51:52 AUTHOR: CHERYL TAVERAS EXP COSIGNER: URGENCY: STATUS: COMPLETED CONSULT REQUESTED FROM TOÑO CAI AUG 01, 2024 BEBO SHEPHERD is a 84 y/o WHITE MALE, previously in [facility] FROM Dec TO Dec from [facility]ICE - [place] [facility], w/chief complaint of DIZZINESS 84-year-old male referred secondary to dizziness. He states that he has had longstanding dizziness which has worsened over the last several months. He states that when he moves from sitting to standing he will feel lightheaded and will have to hold onto things as he walks. It never happens when he turns. He does not have a sensation of spinning. He has only had 1 fall and he states it was because the phone rang and he got up quickly and his legs were caught in the blanket and he fell. Patient recently was hospitalized for perforated diverticulitis. He spent a week at [facility] and then a week in rehab but is now doing well. He states that he has rheumatoid arthritis and is on Enbrel and he was told by his processing lead that this can cause diverticulitis. Patient does have insulin and is on insulin pump. Patient has no history of ear infections as an adult. He did have 1 episode as a child where he had a abscessed mastoid that never had surgery but eventually drained. He has had no ear surgery. He does have hearing aids. Sometimes when he swallows his ears crackle. 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 Finally he does occasionally experience spinning when he lies in bed or turns. It will last for a few seconds and then resolved. It is very intermittent in nature. PMHx: Active problems - Computerized Problem List is the source for the followin. Acute mesenteric ischaemia 2. Elevated PSA 3. Aortic Valve Disorder (SCT 0993129) 4. Cerebrovascular disease 5. Chronic recurrent major depressive disorder 6. Insulin pump present 7. Hypertension 8. Family history of cancer of colon 9. Testicular hypofunction 10. Osteoporosis 11. Major depressive disorder 12. RA - Rheumatoid arthritis 13. History of colonic polyp 14. Diverticular disease of colon 15. Adjustment disorder 16. Hemorrhoids 17. Polymyalgia Rheumatica 18. Microscopic Hematuria 19. Rosacea 20. Hypertension (SNOMED CT 31590215) 21. Spinal Stenosis * 22. Hyperlipidemia (SNOMED CT 72205868) 23. Osteoarthritis * 24. Lower Back Pain * 25. Vertigo 26. Diabetes mellitus type 2 (SNOMED CT 13721060) 27. Gastroesophageal Reflux Disorder Service Connected Disabilities with % Eligibility: [place] LESS THAN 50% VERIFIED Total S/C %: 10 TINNITUS 10% S/C IMPAIRED HEARING 0% S/C MEDS: Active Outpatient Medications (including Supplies): ATORVASTATIN CALCIUM 80MG TAB TAKE ONE-HALF TABLET BY ACTIVE MOUTH ONCE DAILY Indication: FOR HIGH CHOLESTEROL CALCIUM 200MG (CA CITRATE-950MG) TAB TAKE FOUR TABLETS BY ACTIVE MOUTH TWICE DAILY Indication: FOR OSTEOPOROSIS GABAPENTIN 600MG TAB TAKE ONE TABLET BY MOUTH THREE TIMES ACTIVE A DAY GLUCOSE 4GM CHEW TAB CHEW ONE TABLET BY MOUTH EVERY DAY ACTIVE NEEDED Indication: FOR LOW BLOOD SUGAR GLUCOSE SENSOR DEXCOM G7 USE 1 SENSOR DIRECTED EVERY 10 ACTIVE DAYS HYDROXYCHLOROQUINE SULFATE 200MG TAB TAKE ONE TABLET BY ACTIVE MOUTH ONCE DAILY MONDAY-MONDAY AND THEN TAKE 1 TABLET TWICE DAILY ON MONDAY AND MONDAY. DO NOT TAKE WITH CITALOPRAM INSULIN,ASPART,HUMAN 100 UNIT/ML INJ INJECT 80 UNITS ACTIVE SUBCUTANEOUSLY EVERY DAY DIRECTED FOR USE WITH CONTINUOUS SUBCUTANEOUS INSULIN INFUSION DEVICE Indication: FOR DIABETES LEFLUNOMIDE 20MG TAB TAKE ONE TABLET BY MOUTH ONCE DAILY ACTIVE MULTIVIT/OPHTH AREDS2/LUTE/ZEAX CAP/TAB TAKE 1 CAPSULE BY ACTIVE MOUTH TWICE DAILY IN THE MORNING AND EVENING, WITH FOOD PREDNISONE 2.5MG TAB TAKE THREE TABLETS BY MOUTH ONCE ACTIVE DAILY PREDNISONE 5MG TAB TAKE ONE TABLET BY MOUTH ONCE DAILY ACTIVE PSYLLIUM ORAL PWD TAKE 2 TEASPOONFULS BY MOUTH ONCE DAILY ACTIVE (MIX WITH AT LEAST 8OZ. OF WATER OR OTHER FLUID) Indication: FOR CONSTIPATION RESERVOIR,T:SLIM X2 W/T:LOCK,3ML USE 1 RESERVOIR ACTIVE DIRECTED EVERY THIRD DAY SET,INFUSION VARISOFT TANDEM #[id number] 1 SET (17MM 43'') ACTIVE EVERY THIRD DAY SYRINGE 2.5-3ML/NDL 21G 1IN USE 1 SYRINGE EVERY THIRD DAY ACTIVE TAMSULOSIN HCL 0.4MG CAP TAKE TWO CAPSULES BY MOUTH AT ACTIVE BEDTIME TOCILIZUMAB 162MG/0.9ML INJ SYR 0.9ML INJECT [...] TAB 5MG BY MOUTH TWICE DAILY ACTIVE ALL: PENICILLIN, ZOSYN, METFORMIN Fam Hx: Non - contributory ROS: Denies any other relavent ROS Vitals Enter at: Jul 05, 2024@10:58:41 BP: 93/50 Vitals Enter at: Jul 05, 2024@10:00 P: 89 R: 18 T: 98 167.4 lb [75.93 kg] (07/05/2024 10:00) BMI: 28.3 CONSTITUTION: GENERAL APPEARANCE:Well developed, well nourished and groomed. No apparent acute or chronic distress. HEAD, FACE, SALIVARY GLANDS AND TMJ: Palpation of Parotid and Submandibular glands: Normal. Facial Mobility: Normal. NO NSYTAGMUS EAR, NOSE, MOUTH AND THROAT: Pinnas - normal. Otoscopic exam: RIGHT EAR: External auditory canal normal, tympanic membrane mobile LEFT EAR: External auditory canal normal, tympanic membrane mobile OBVIOUS HEARING LOSS Nasal Interior: Turbinates and middle meatus - Inferior turbinates normal. Normal mucosa with no swelling, polyps, active bleeding or evidence of bleeding. Lips, Teeth and Gums: Lips normal. Oral Cavity and Oropharynx: Oral mucosa with normal color and moisture. Anterior 2/3rds of tongue normal. Breath quality normal. Hard palate normal. Normal floor of mouth, Posterior pharynx normal. NECK AND THYROID: Neck: no adenopathy; no neck masses. RESPIRATORY: Respiratory effort normal. LYMPH NODES: Neck nodes: normal. NEUROLOGIC: Higher integrative functions: Normal orientation, memory, attention span and concentration, language, and fund of knowledge. Cranial nerves: Cranial nerves II-XII grossly intact and symmetrical. UNSTEADY ROMBERG WITH EYES OPEN DOOR CLOSED, UNABLE TO PERFORM TANDEM GAIT IN A NONLOCALIZING WAY, NEGATIVE CHIN-HALLPIKE MANEUVER PSYCHIATRIC: Mood and affect: normal and appropriate to the situation. AUDIOGRAM 03-23-2021 Otoscopy is WNL for both ears. Pure tone audiometric testing with headphones revealed normal hearing sloping to a moderately severe/severe sensorineural hearing loss bilaterally. Word recognition scores were good with 92% correct for each ear for recorded speech presented at 75 dB HL (40 EM). As tympanograms were obtained bilaterally (reduced eardrum compliance). Results obtained today are considered stable in comparison to those from 2016. Assessment/Plan AUG 01, 2024: 84-year-old male referred secondary to dizziness. Physical exam shows normal ear exam. Patient had no effusions. Patient had no nystagmus. Unsteady Romberg with eyes open and closed. Unable to perform tandem gait. Negative Kathleen-Hallpike maneuver. 1. Lightheadedness -I discussed with the patient that this symptom is not otologic in nature. It is a result of postural inabilities to adjust to change due to age and medications. We discussed the importance of hydration and taking time to adjust to changes in position. 2. Possible BPPV intermittent -patient had no evidence of BPPV today. He does state that he intermittently does spin in bed and it last for few seconds. It was not able to be reproduced today. 3. Mild intermittent eustachian tube dysfunction -patient's intermittent crackling is eustachian tube dysfunction. We discussed auto insufflation. Reassurance was given there was no evidence of fluid. We discussed the possibility of vestibular therapy and balance therapy. Patient politely declined. He states that he would like to get some OT done that he had not had time to do given his recent hospitalization. I have offered to place a consult for PT but he would like to hold off at this time. He was reassured that there was no evidence of effusions bilaterally. Patient does have some degree of eustachian tube dysfunction. All questions were answered. Complete encounter includes: Review of past medical records Time spent with patient including obtaining history, physical exam, shared decision making, procedures, counseling and answering questions. Post visit documentation to include but not limited to medication and lab ordering. Total time = Minimum 45 min MEDICATION RECONCILIATION Outpatient: Has the patient been taking medications as documented in the EMLR? YES: The patient has been taking medications as documented in the EMLR. Essential Medication List for Review used to complete this medication reconciliation. INCLUDED IN THIS LIST: Alphabetical list of active outpatient prescriptions dispensed from this [facility] (local) and dispensed from another [place] or [facility] facility (remote) as well as inpatient [...] Allergy/ADR Data available for this patient [place] [facility] [place] [facility] METFORMIN [place] [facility] ZOSYN Med Recon NoGlossary (Tool #1) INCLUDED IN THIS LIST: Alphabetical list of active outpatient prescriptions dispensed from this [place] (local) and dispensed from another [place] or [facility] facility (remote) as well as inpatient orders (local pending and active), local clinic medications, locally documented non-VA medications, and local prescriptions that have or been discontinued in the past 90 days. Non-VA Meds Last Documented On: Oct 09, 2023 NOTE The display of VA prescriptions dispensed from another [place] or [facility] facility (remote) is limited to active outpatient prescription entries matched to National Drug File at the originating site and may not include some items such as investigational drugs, compounds, etc. NOT INCLUDED IN THIS LIST: Medications self-entered by the patient into personal health records (i.e. [employer]) are NOT included in this list. Non-VA [...] ONE-HALF TABLET BY MOUTH ONCE DAILY Rx# [id number] Last Released: 06/25/24 Qty/Days Supply: Rx Expiration Date: 02/27/25 Refills Remainin Indication: FOR HIGH CHOLESTEROL OUTPT CALCIUM 200MG (CA CITRATE-950MG) TAB (Status = Active) TAKE FOUR TABLETS BY MOUTH TWICE DAILY Rx# [id number] Last Released: 05/08/24 Qty/Days Supply: 800/ Rx Expiration Date: 11/27/24 Refills Remainin Indication: FOR OSTEOPOROSIS Non-VA CHOLECALCIF 50MCG (D3-2,000UNIT) TAB TAKE ONE TABLET BY MOUTH ONCE DAILY Aug 11, 2020 Non-VA medication not recommended by VA provider. OUTPT CITALOPRAM HYDROBROMIDE 10MG TAB (Status = Discontinued) TAKE ONE-HALF TABLET BY MOUTH ONCE DAILY FOR DEPRESSION AND ANXIETY Rx# [id number] Last Released: 05/28/24 Qty/Days Supply: 45 Rx Expiration Date: 02/28/25 Refills Remainin Indication: FOR MAJOR DEPRESSIVE DISORDER Non-VA CYCLOBENZAPRINE HCL 10MG TAB TAKE ONE TABLET BY MOUTH TWICE DAILY OUTPT DENOSUMAB 60MG/ML INJ SYRINGE 1ML (Status = ) INJECT 60MG/1ML SUBCUTANEOUSLY ONE TIME FOR OSTEOPOROSIS Rx# [id number] Last Released: 05/07/24 Qty/Days Supply: 07/18 Rx Expiration Date: 05/30/24 Refills Remainin Indication: FOR OSTEOPOROSIS Non-VA FUROSEMIDE 20MG TAB TAKE ONE TABLET BY MOUTH ONCE DAILY OUTPT GABAPENTIN 600MG TAB (Status = Active) TAKE ONE TABLET BY MOUTH THREE TIMES A DAY Rx# [id number] Last Released: 07/10/24 Qty/Days Supply: 270 Rx Expiration Date: 09/30/24 Refills Remainin OUTPT GLUCOSE 4GM CHEW TAB (Status = Active) CHEW ONE TABLET BY MOUTH EVERY DAY NEEDED FOR LOW BLOOD SUGAR Rx# [id number] Last Released: 04/08/24 Qty/Days Supply: Rx Expiration Date: 04/03/25 Refills Remainin Indication: FOR LOW BLOOD SUGAR OUTPT HYDROXYCHLOROQUINE SULFATE 200MG TAB (Status = Discontinued) TAKE TWO TABLETS BY MOUTH ONCE DAILY 5 DAYS A WEEK, AND 1 TABLET DAILY 2 DAYS A WEEK. Rx# [id number] Last Released: 05/23/24 Qty/Days Supply: Rx Expiration Date: 08/19/24 Refills Remainin OUTPT HYDROXYCHLOROQUINE SULFATE 200MG TAB (Status = Active) TAKE ONE TABLET BY MOUTH ONCE DAILY MONDAY-MONDAY AND THEN TAKE 1 TABLET TWICE DAILY ON MONDAY AND MONDAY. DO NOT TAKE WITH CITALOPRAM Rx# [id number] Last Released: 08/01/24 Qty/Days Supply: 108 Rx Expiration Date: 08/01/25 Refills Remainin OUTPT INSULIN,ASPART,HUMAN 100 UNIT/ML INJ (Status = Active) INJECT 80 UNITS SUBCUTANEOUSLY EVERY DAY DIRECTED FOR USE WITH CONTINUOUS SUBCUTANEOUS INSULIN INFUSION DEVICE Rx# [id number] Last Released: 06/04/24 Qty/Days Supply: Rx Expiration Date: 09/01/24 Refills Remainin Indication: FOR DIABETES OUTPT KETOCONAZOLE 2% CREAM (Status = ) APPLY A THIN LAYER TOPICALLY TWICE DAILY RASH APPLY TO AFFECTED AREAS ON FACE TWICE DAILY FOR 4 WEEKS, THEN NEEDED Rx# [id number] Last Released: 07/21/23 Qty/Days Supply: 12030 Rx Expiration Date: 07/13/24 Refills Remainin Indication: RASH OUTPT KETOCONAZOLE 2% SHAMPOO (Status = ) SHAMPOO SMALL AMOUNT TOPICALLY TWICE A WEEK NEEDED APPLY FOR 8 WEEKS, THEN NEEDED Rx# [id number] Last Released: 06/25/24 Qty/Days Supply: 240/30 Rx Expiration Date: 07/13/24 Refills Remainin Indication: SCALP RASH OUTPT LEFLUNOMIDE 20MG TAB (Status = ) TAKE ONE TABLET BY MOUTH ONCE DAILY Rx# [id number] Last Released: 05/02/24 Qty/Days Supply: Rx Expiration Date: 07/29/24 Refills Remainin OUTPT LEFLUNOMIDE 20MG TAB (Status = Active) TAKE ONE TABLET BY MOUTH ONCE DAILY Rx# [id number] Last Released: 08/01/24 Qty/Days Supply: 90 Rx Expiration Date: 08/01/25 Refills Remainin Non-VA LOSARTAN 100MG TAB TAKE ONE TABLET BY MOUTH DAILY OUTPT MULTIVIT/OPHTH AREDS2/LUTE/ZEAX CAP/TAB (Status = Active) TAKE 1 CAPSULE BY MOUTH TWICE DAILY IN THE MORNING AND EVENING, WITH FOOD Rx# [id number] Last Released: 06/25/24 Qty/Days Supply: 120/60 Rx Expiration Date: 04/30/25 Refills Remainin Non-VA OMEPRAZOLE 20MG EC CAP TAKE 1 CAPSULE BY MOUTH EVERY DAY Non-VA PILOCARPINE HCL 5MG TAB TAKE ONE TABLET BY MOUTH TWICE DAILY Dec 04, 2020 Non-VA medication not recommended by [facility] provider. OUTPT PREDNISONE 10MG TAB (Status = Discontinued) TAKE ONE TABLET BY MOUTH ONCE DAILY Rx# [id number] Last Released: 04/18/24 Qty/Days Supply: 90 Rx Expiration Date: 07/09/24 Refills Remainin OUTPT PREDNISONE 2.5MG TAB (Status = Active) TAKE THREE TABLETS BY MOUTH ONCE DAILY Rx# [id number] Last Released: 06/25/24 Qty/Days Supply: Rx Expiration Date: 04/30/25 Refills Remainin OUTPT PREDNISONE 5MG TAB (Status = Active) TAKE ONE TABLET BY MOUTH ONCE DAILY Rx# [id number] Last Released: 08/01/24 Qty/Days Supply: 90 Rx Expiration Date: 08/01/25 Refills Remainin OUTPT PSYLLIUM ORAL PWD (Status = Active) TAKE 2 TEASPOONFULS BY MOUTH ONCE DAILY FOR CONSTIPATION (MIX WITH AT LEAST 8OZ. OF WATER OR OTHER FLUID) Rx# [id number] Last Released: Qty/Days Supply: 390 Rx Expiration Date: 07/31/25 Refills Remainin Indication: FOR CONSTIPATION OUTPT TAMSULOSIN HCL 0.4MG CAP (Status = Active) TAKE TWO CAPSULES BY MOUTH AT BEDTIME Rx# [id number] Last Released: 07/10/24 Qty/Days Supply: 180 Rx Expiration Date: 01/22/25 Refills Remainin OUTPT TOCILIZUMAB 162MG/0.9ML INJ SYR 0.9ML (Status = Active) INJECT 162MG SUBCUTANEOUSLY EVERY 2 WEEKS Rx# [id number] Last Released: 07/09/24 Qty/Days Supply: 08/16 Rx Expiration Date: 04/12/25 Refills Remainin SUPPLIES OUTPT GLUCOSE SENSOR DEXCOM G7 (Status = Active) USE 1 SENSOR DIRECTED EVERY 10 DAYS Rx# [id number] Last Released: 06/25/24 Qty/Days Supply: Rx Expiration Date: 06/18/25 Refills Remainin OUTPT INSULIN SYRINGE 1ML 31G 8MM (Status = Discontinued) USE 1 SYRINGE EVERY THIRD DAY FOR INSULIN INJECTIONS Rx# [id number] Last Released: 07/16/24 Qty/Days Supply: Rx Expiration Date: 10/13/24 Refills Remainin OUTPT RESERVOIR,T:SLIM X2 W/T:LOCK,3ML (Status = Active) USE 1 RESERVOIR DIRECTED EVERY THIRD DAY Rx# [id number] Last Released: 07/16/24 Qty/Days Supply: Rx Expiration Date: 07/17/25 Refills Remainin OUTPT SET,INFUSION VARISOFT TANDEM #[id number] (Status = Active) 1 SET (17MM 43'') EVERY THIRD DAY Rx# [id number] Last Released: 07/16/24 Qty/Days Supply: Rx Expiration Date: 07/17/25 Refills Remainin OUTPT SYRINGE 2.5-3ML/NDL 21G 1IN (Status = Active) USE 1 SYRINGE EVERY THIRD DAY Rx# [id number] Last Released: QtDays Supply: Rx Expiration Date: 07/18/25 Refills Remainin /es/ Cheryl Taveras MD Otolaryngology Signed: 08/01/2024 17:52 CHERYL TAVERAS [facility]
--- OUTSIDE RECORDS SUMMARY | 2024-10-01 11:27 | XMS_ITS | Encounter Summary ---
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 Name Role Phone TOÑO CAI Primary Care [...] [place] MEDICARE SUPPLEMEN MASTER PSUED O MEDEX [facility] E Mar 19, 2004 [id number] HOLLIE SHEPHERD PATIENT [place] MED[place] SUPPLEMEN MASTER MEDEX [place] E Mar 19, 2004 [id number] [phone] HOLLIE SHEPHERD PATIENT [place] MED[place] SUPPLEMEN MASTER MEDEX [place] E Mar 19, 2004 [id number] [phone] HOLLIE SHEPHERD PATIENT BCBS [facility] MEDICARE SUPPLEMEN MASTER PSUED O MEDEX [place] E Mar 19, 2004 [id number] HOLLIE SHEPHERD PATIENT MEDICARE (WNR) MEDICARE (M) PART B Mar 19, 2004 PART B [id number] HOLLIE SHEPHERD PATIENT MEDICARE (WNR) MEDICARE (M) PART B Mar 19, 2004 PART B [id number] [phone] HOLLIE SHEPHERD PATIENT MEDICARE (WNR) MEDICARE (M) PART B Mar 19, 2004 PART B [id number] CORAHOLLIE SILVA ALD PATIENT MEDICARE (WNR) MEDICARE (M) PART A Feb 17, 2003 PART A [id number] CORAHOLLIE SILVA ALD PATIENT MEDICARE (WNR) MEDICARE (M) PART A Feb 17, 2003 PART A [id number] HOLLIE SHEPHERD PATIENT MEDICARE (WNR) MEDICARE (M) PART A Feb 17, 2003 PART A [id number] [phone] HOLLIE SHEPHERD PATIENT MEDICARE (WNR) MEDICARE (M) PART A Feb 17, 2003 PART A [id number] [phone] HOLLIE SHEPHERD PATIENT MEDICARE (WNR) MEDICARE (M) PART B Feb 17, 2003 PART B [id number] [phone] HOLLIE SHEPHERD PATIENT MEDICARE (WNR) MEDICARE (M) PART A Feb 17, 2003 PART A [id number] [phone] HOLLIE SHEPHERD PATIENT MEDICARE (WNR) MEDICARE (M) PART B Feb 17, 2003 PART B [id number] HOLLIE SHEPHERD PATIENT Selected Encounter This section includes the information on record at [place] for the Encounter. Date/Time Encounter Type Encounter Description Reason Provider Source Aug 20, 2024 09:00 AM OFFICE O/P EST HI 40 MIN GENERAL SURGERY ICD-10-CM K45.8 Oth abdominal hernia without obstruction or gangrene JOANA CRENSHAW E Encounter Template Text not used by [place] Assessments - Encounter Diagnoses This section includes the primary and secondary diagnoses documented for the Encounter. Date/Time Primary/Secondary Diagnosis Diagnosis Name Provider Source Aug 29, 2024 03:19 PM PRIMARY Oth abdominal hernia without obstruction or gangrene JOANA CRENSHAW [facility] [facility] Aug 29, 2024 03:19 PM SECONDARY Low back pain, unspecified [facility]SHA[facility] [place] [facility] Aug 29, 2024 03:19 PM SECONDARY Other specified postprocedural states [facility] Plan of Treatment: Future Appointments (+ 6 months) and Future Tests (+/- 45 days) The Plan of Treatment section includes future care activities for the patient [facility] [place] [facility]. This section includes future appointments and future orders which are active, pending or scheduled. Future Appointments This section includes appointments that were scheduled to occur 6 months from the date of the Encounter, up to a maximum of 20 appointments. The data comes from all [facility]. Appointment Date/Time Appointment Type Appointme nt Facility Name Aug 22, 2024 11:00 AM AMBULATORY - MEDICINE [facility] Sep 27, 2024 11:00 AM [facility] Oct 03, 2024 02:00 PM AMBULATORY - MEDICINE [place] [facility] Oct 08, 2024 11:00 AM [facility] NONE [facility] November 15, 2024 11:00 AM AMBULATORY - MEDICINE [facility] Nov 27, 2024 11:00 AM AMBULATORY - MEDICINE [facility] Active, Pending, and Scheduled Orders This section includes a listing of several types of active, pending, and scheduled orders, including clinic medications orders, diagnostic test orders, procedure orders and consult orders; where the start date of the order is 45 days before the date of the Encounter or 45 days after the date of theEncounter. The data comes from all [facility]. Test Date/Time Test Type Test Details Facility Name Aug 22, 2024 12:00 AM Laboratory - Chemi stry Order CALCIUM BLOOD (SST-SERUM) [facility] Aug 22, 2024 12:00 AM Laboratory - Chemi stry Order C-PEPTIDE (q) BLOOD (SST-SERUM) [facility] Lab Results: +/- 30 days of the encounter This section includes the Chemistry and Hematology Lab Results on record with [place] for the patient. Radiology Reports and Pathology Reports are provided separately, in subsequent sections. Lab Results This section contains the Chemistry/Hematology Results that were resulted 30 days before or 30 daysafter the date of the Encounter. Date/Time Source Result Type Result - Unit Interpretation Reference Range Specimen Type Comment Aug 07, 2024 07:58 AM [facility] FERRITIN SERUM Specimen Type: SERUM No comment entered. Ordering Provider: SILVIA CAI Report Released Date/Time: Jul 24, 2024 11:22 AM Reporting Lab: [facility] [address] [address] Performing Lab: [facility] [address] FERRITIN 69 ng/mL 20-300 Aug 07, 2024 07:58 AM [facility] IRON & TIBC PANEL SERUM Specimen Type: SERUM No comment entered. Ordering Provider: TOÑO CAI Report Released Date/Time: Jul 24, 2024 11:22 AM Reporting Lab: [facility] [address] [address] Performing Lab: [facility] [address] [address] TIBC 350 ug/dL 204-475 IRON 53 ug/dL 40-160 Transferrin Saturation 15.2 L 20.0-50.0 Transferrin (TRF) 265 mg/dL 200-360 Aug 07, 2024 07:58 AM [facility] LIVER FUNCTION SERUM Specimen Type: SERUM No comment entered. Ordering Provider: TOÑO CAI Report Released Date/Time: Jul 24, 2024 11:22 AM Reporting Lab: [facility] [address] [address] Performing Lab: [facility] [address] PROTEIN,TOTAL 5.5 g/dL L 6.0-8.3 ALBUMIN 3.5 g/dL 3.5-5.0 ALKALINE PHOSPHATASE 82 U/L 40-150 AST 25 U/L 5-34 ALT 27 U/L BILIRUBIN, TOTAL 0.7 mg/dL 0.2-1.2 Aug 07, 2024 07:58 AM [facility] BASIC METABOLIC PANEL (fasting) SERUM Specime n Type: SERUM No comment entered. Ordering Provider: TOÑO CAI Report Released Date/Time: Jul 24, 2024 11:22 AM Reporting Lab: [address] [address] Performing Lab: [address] [address] UREA NITROGEN 18 mg/dL 7-25 GLUCOSE 150 mg/dL H 65-100 SODIUM 143 mmol/L 135-145 POTASSIUM 3.4 mmol/L L 3.5-5.0 CHLORIDE 106 mmol/L 100-110 CO2 26 meq/L 20-30 CALCIUM 9.1 mg/dL 8.5-10.2 CREATININE, Serum 0.75 mg/dL 0.50-1.40 eGFR(CKD-EPI 2020) 87 mL/min >60 Aug 07, 2024 07:58 AM [facility] CBC AND DIFF (AUTO) BLOOD Specimen Type: BLOO D No comment entered. Ordering Provider: TOÑO CAI Report Released Date/Time: Jul 24, 2024 11:22 AM Reporting Lab: [facility] [address] [address] Performing Lab: [address] [address] WBC 3.96 10*3/uL L 4.50-11.00 RBC 4.18 [...] 10*3/uL 0.00-0.00 Aug 07, 2024 07:58 AM [facility] OSMOLALITY (SERUM) SERUM Specimen Type: SERUM Comment: Manually entered by: RTO Ordering Provider: ALLIE CUELLO Report Released Date/Time: Jul 24, 2024 02:18 PM Reporting Lab: [facility] [address] [address] Performing Lab: [facility] [address] [facility] [address] OSMOLALITY (SERUM) 305 H 280-300 Aug 07, 2024 07:58 AM [facility] VITAMIN D (25-OH) SERUM Specimen Type: SERUM No comment entered. Ordering Provider: ALLIE CUELLO Report Released Date/Time: Jul 24, 2024 02:18 PM Reporting Lab: [facility] [address] [address] Performing Lab: [facility] [address] [address] VITAMIN D (25-OH) 41 ng/mL 20-50 Aug 07, 2024 07:58 AM [facility] BASIC METABOLIC PANEL (non-fasting) SERUM Spe cimen Type: SERUM No comment entered. Ordering Provider: ALLIE CUELLO Report Released Date/Time: Jul 24, 2024 02:18 PM Reporting Lab: [facility] [address] [address] Performing Lab: [facility] [address] [address] UREA NITROGEN 19 mg/dL 7-25 GLUCOSE 149 mg/dL H 65-100 SODIUM 141 mmol/L 135-145 POTASSIUM 3.4 mmol/L L 3.5-5.0 CHLORIDE 106 mmol/L 100-110 CO2 26 meq/L 20-30 CALCIUM 9.0 mg/dL 8.5-10.2 CREATININE, Serum 0.73 mg/dL 0.50-1.40 eGFR(CKD-EPI 2020) 88 mL/min >60 Aug 07, 2024 07:58 AM [facility] HEMOGLOBIN A1C PANEL BLOOD Specimen Type: [...] Jul 24, 2024 02:23 PM Reporting Lab: [facility] [address] [address] Performing Lab: [address] [address] HEMOGLOBIN A1C 5.9 H 4.0-5.6 Aug 07, 2024 07:58 AM [facility] MICROALBUMIN CREATININE RATIO PANEL URINE Spe cimen Type: URINE No comment entered. Ordering Provider: ALLIE CUELLO Report Released Date/Time: Jul 24, 2024 02:23 PM Reporting Lab: [facility] [address] [address] Performing Lab: [address] [address] MICROALBUMIN/CREATININE RATIO 52.0 mg/g H 0-29.9 MICROALBUMIN,QUANTITATIVE 10.4 mg/dL RR UNAVAIL CREATININE URINE 199.85 mg/dL Vital Signs: All taken on the encounter date This section contains inpatient and outpatient Vital Signs collected on the date of the Encounter. Date/Time Temperature Pulse Blood Pressure Respiratory Rate SP02 Pain Height Weight Body Mass Index Source Aug 20, 2024 10:16 AM 97.3 74 122/70 18 93 4 163 28 [place] [facility] [place] [facility] Social History: Smoking Status (Most current) and Tobacco Use (All prior to encounter date) This section includes the most current, and the historical, smoking and tobacco- related health factors from the [place] facility where the Encounter took place. Current Smoking Status This section includes the most current smoking, or tobacco-related health factor, from the [place] facility where the Encounter took place. Date/Time Current Smoking Status Comment [facility] Jun 17, 2024 10:31 AM VA-TOBACCO USE FOR TAMMY CIGARETTES [place] [facility] [place] [facility] Tobacco Use History This section includes a history of the smoking, or tobacco-related health factors, that were collected on or before the date of the Encounter. The data comes from the [place] facility where the Encounter took place. Date/Time Smoking Status/Tobac co Use Comment Facility Jun 17, 2024 10:31 AM VA-TOBACCO USE FORMER CIGARETTES [facility] [place] [facility] Jun 05, 2023 11:00 AM VA-TOBACCO FORMER USER [facility] [place] [facility] Jun 05, 2023 11:00 AM VA-TOBACCO QUIT 15 YRS OR MORE [facility] [place] [facility] Jun 06, 2022 01:00 PM VA-TOBACCO FORMER USER [facility] [place] [facility] Jun 06, 2022 01:00 PM VA-TOBACCO QUIT 15 YRS OR MORE [facility] [place] [facility] Jun 30, 2021 02:37 PM VA-TOBACCO FORMER USER [facility] [place] [facility] Jun 30, 2021 02:37 PM VA-TOBACCO QUIT 5 TO < 15 YRS [facility] [place] [facility] May 22, 2020 03:30 PM VA-TOBACCO NEVER USED [facility] [place] [facility] May 08, 2018 02:03 PM VA-TOBACCO FORMER USER [facility] May 08, 2018 02:03 PM VA-TOBACCO QUIT 15 YRS OR MORE [facility] November 10, 2017 02:33 PM QUIT TOBACCO USE > 7 YEARS AGO [facility] October 21, 2016 01:55 PM QUIT TOBACCO USE > 7 YEARS AGO [facility] Sep 18, 2015 11:24 AM QUIT TOBACCO USE > 7 YEARS AGO stopped 50 years ago [facility] May 19, 2005 08:01 AM HISTORY OF SMOKING [facility] May 31, 2004 01:02 PM HISTORY OF SMOKING [facility] Jun 04, 2003 07:57 AM HISTORY OF SMOKING [facility] Jun 03, 2002 01:11 PM HISTORY OF SMOKING [facility] Jun 03, 2002 01:11 PM QUIT TOBACCO USE > 7 YEARS AGO [facility] Advance Directives: All historical and current Section Date Range: From patient's date of to the date document was created. This section includes ALL of a patient's completed or amended [place] Advance and Rescinded Directives. The entries below indicate that a directive exists for the patient, but an actual copy is not included with this document. The data comes from all [place] facilities. Date Advance Directives Provider Source Jun 02, 2023 ADVANCE DIRECTIVE JENNIFER QUIROS [facility] Encounter Notes: All associated encounter notes This section contains the clinical notes associated to the Encounter. Date/Time Encounter Note(s) Provider Source Aug 20, 2024 08:40 AM SURGERY OUTPATIENT NOTE: LOCAL TITLE: SURGICAL CLINIC NOTE STANDARD TITLE: SURGERY OUTPATIENT NOTE DATE OF NOTE: AUG 20, 2024@08:40 ENTRY DATE: AUG 20, 2024@08:40:48 AUTHOR: JOANA CRENSHAW COSIGNER: URGENCY: STATUS: COMPLETED DATE: AUG 20, 2024 BEBO SHEPHERD comes in for a follow up visit. He was last seen here on 07/05/2024 for evaluation of a purported Spigelian hernia. However, in the Clinic, he had increasingly severe central abdominal pain and hypotension. He was found to have an acute abdomen and he was sent via Emergency Services to [facility]'s Emergency Room. Evaluation there confirmed an acute intra- abdominal process. A CT scan was done which showed, by report, bowel ischemia with perforation . He was given Ceftriaxone and Flagyl. He was transferred to [facility] as apparently there were no ICU beds for post-op care and no surgical team (per the patient) at [facility]. Ultimately, he underwent emergency laparotomy and a segmental small bowel resection (with primary stapled kjjy-ov-scvs anastomosis) and washout for perforated jejunal diverticulitis with abscess. Per the operative report, there was no evidence of ischemia . The patient reports that about 4 inches of small intestine were removed. (His surgeon was Dr. Freya Carvajal.) NOTE: the patient states that he stopped his tocilizumab on the advice of his [facility] surgeon as she said it contributed/possibly caused his bowel perforation. He spent a week in the hospital ([facility]) and then another week in rehab at [facility] and [facility]. Today, he is in great spirits. He is very appreciative of the care here and his being sent promptly to the Emergency Room. He says that he probably would have had he just gone home like he wanted to. He denies any abdominal pain. He denies any fevers or chills. He reports having a great appetite . He says that he lost weight during his hospitalization. He is moving his bowels daily without any problems. He denies N/V, CP, SOB, or pleuritic pain. He denies needing to take any presciption pain medication. However, he says that at night, because of his restless legs and other various pains (though not abdominal or incisional pain), he will take two 650-mg Tylenols and spray his legs with IcyHot. The patient returns to this Clinic because he was told he had a hernia seen on his CT scan, and this had not been addressed or discussed at his last (and only) visit due to his acute abdomen. Apparently the CT scan done on 06/17/2024 as an outpatient was done for mid-central abdominal pain. According to the Radiology Report, the patient has a fat-containing, right-sided Spigelian hernia . The patient denies any abdominal pain, distension, or N/V. He denies any abdominal mass or any bulges or protrusions of his abdomen. He denies any redness or rash. He denies any problems moving his bowels. He denies any dysuria or hematuria. He denies any colicky pain. He denies any mass or bulge in his inguinal regions. However, he does note occasional discomfort in his right medial inguinal region. He denies any redness or rash in that area. Of note, on my review of his CT scan images, I do not identify any Spigelian or ventral abdominal wall hernia. He does have a right-sided posterolateral hernia with fat within it. This at about the level of the lower pole of his right kidney. This appears to be a right-sided lumbar hernia. The patient reports lower back pain on both sides. No side is worse than the other. He says that he had fusion surgery about 6 years ago at [facility], and he has hardware ( rods and screws ) in his lower back. He says that he actually had two different operations. He says that he still has lower back pain, but it is more centrally located on his back. He denies any swelling or protrusion in his right lower back or right lower flank. He denies any pain in his right flank. He says that he gets shots in his back, though he thinks that the last shots did nothing for him. The patient denies bowel obstruction or urinary obstruction symptoms. He denies any feelings of heaviness or achiness in his right lower back or right lower flank regions. He denies fevers or chills, CP, palpitations, SOB, or GARCIA. Review of Systems is as above. Also, the patient also reports nocturia and some urgency, but no dysuria or hematuria. He stopped taking his Lasix because I go enough already. He reports occasional dizziness but no vertigo. He denies any falls or BECERRA. He has some blurriness in his left eye due to macular degeneration. He reports some reflux symptoms. He has RLS and arthritis pains and joint pains. Vital Signs: T: 97.3 F (36.3 C) P: 74 R: 18 B/P: 122/70 Wt: 163.00 lb (73.94 kg) Body Mass Index: 28* Pulse Oximetry: 93% on RA at rest Pain: 4 EXAMINATION: General: Alert, calm, smiling, pleasant, conversant, WDWN, elderly man, in NAD. HEENT: NC/AT. Anicteric. He wears glasses. He has hearing aids. EOMI. Mucous membranes are moist, conjunctivae are clear. He has a full jensen and mustache Lungs: Clear. No rales, no wheezes. No pleuritic pain. Heart: RRR. III/ systolic murmur. No rubs heard. Abdomen: Soft, non-distended, and non-tender. No guarding at all. He has a well- healed, vertical, midline scar centered about the umbilicus (and curving to the left of it). There is a mild healing ridge which is non-tender. There is no incisional hernia. There is no erythema. There are no palpable masses. There is no evidence of a Spigelian hernia on either side. There are no inguinal hernias noted. Examination of the inguinal regions bilaterally in the supine and upright positions reveals no bulge or mass on either side. Examination of the inguinal canals and with the patient doing Valsalva maneuvers in the standing position, reveals no bulge or impulse on the examining finger on either side. There is no evidence of an inguinal hernia on either side. There is no erythema or skin discoloration. The patient is uncircumcised. Both testicles are descended, but they are quite small. There are no masses and both testicles are non-tender. (Patient reports that he had mumps at age 14.) On the patient's right lower posterior flank, there is a subtle bulging of the contour of the side. This bulging is inferior to the right lowermost ribs and superior to the iliac crest. The protrusion is about 5 cm x 7 cm. There is no overlying erythema, skin thickening, or skin change. This area is soft and easily reducible. It is completely non-tender. There is no corresponding bulging on the left side. Skin: There are three vertical scars over the lumbar region, a thin one in the midline and two wider scars on either side of the midline. These are non-tender. There are two dot band-aids on either side of the midline in the upper lumbar area superior to the scars. These were from the injections that the patient had recently. These band-aids are removed, and there is no bruising or any problems with the injection sites. He has multiple scars from his previous operations. Ext: No edema, NT Psych: AAO x3. Mood and affect are appropriate. CT ABDOMEN AND PELVIS WITH CONTRAST Proc Ord: CT ABDOMEN W&W/O CONT Exm Date: JUN 17, 2024@11:32 Req Phys: TOÑO CAI Loc: [facility] PACT 3 PA (Req'g Loc) Img Loc: [facility]/CT Service: [place] [address] (Case 38 COMPLETE) CT ABDOMEN AND PELVIS WITH CONTRA(CT Detailed) CPT:27961 Contrast Media : Non-ionic Iodinated Reason for [...] 17, 2024 Date Verified: JUN 17, 2024 Fire Warden E-Sig:/ES/EVGENY IGNACIO Report: Exam: CT of abdomen [...] Primary Interpreting Staff: EVGENY IGNACIO, Staff Physician (Fire Warden) /KAYLEIGH IMPRESSION: This is a very pleasant 84 year old man with a history of aortic stenosis, s/p TAVR, CAD, HTN, rheumatoid arthritis, PMR, GERD, spinal stenosis, history of SMA stenosis, periperal arterial disease, DM on an insulin pump, who is now about 5 weeks s/p emergency laparotomy and segmental small bowel resection and washout for a perforated jejunal diverticulitis with abscess. He seems to have recovered nicely from this. He has a good appetite, is eating well, and is gaining weight. He is moving his bowels normally. He has no incisional pain or tenderness. He was originally referred to this Clinic for a purported right-sided Spigelian hernia as reported on his outpatient CT scan of 06/17/2024, (which was done for abdominal pain). Review of the images shows a right-sided posterolateral hernia, i.e., a right-sided lumbar hernia containing fat (but no solid organs, though the right kidney is nearby). Reviewed the patient's CT scan report with him. Although the report mentions a right-sided Spigelian hernia, the images actually show a right-sided lumbar hernia. (I will also discuss this with Radiology). Discussed with the patient what a Spigelian hernia is and its location. Discussed what and where a lumbar hernia is. The patient's CT scan images of his right-sided hernia were shown to him. Example images of Spigelian and lumbar hernias were shown to him as well. Lumbar hernias are very rare. His hernia appears to be a superior lumbar hernia. The cause of it may be spontaneous and may be related to his age, previous weight loss, muscle atrophy, strenous activity, previous trauma, or previous infection, or it may be related to his previous lumbar surgery. He c/o lower back pain in the midline. He has no pain in the posterolateral aspect of his right lower back and no tenderness directly over the hernia which is easily reducible and soft. Discussed with the patient that although he appears to be asymptomatic from this hernia and he has no pain and there is no solid organ(s) within it, (as it appears to have only fat within it), the hernia will likely enlarge over time and may become symptomatic. Recommended that he follow up with his [facility] surgeon to discuss the best management for this hernia and the surgical treatment options. In general, surgery would likely be more difficult once the hernia is larger and possibly more complicated. Discussed with the patient in general terms the possible surgical options, both the open and laparoscopic techniques, and the risks and benefits. All of his questions were answered to his satisfaction. He indicated that he actually has an upcoming appointment with his [facility] surgeon. The patient was advised to discuss his right-sided lumbar hernia with her, and he said that he would do this. The patient expressed appreciation for his care here. He left in good spirits. Follow up in this Clinic is PRN. Joana Crenshaw MD Staff General Surgeon Time spent reviewing the pertinent medical records, obtaining a history from the patient, performing an exam, performing an assessment, discussing his diagnosis with him, counseling the patient, answering his questions, and shared decision- making with the patient was 53 minutes Medication Reconciliation: Outpatient: Has the patient been taking medications as documented in the EMLR? No: Discrepencies were identified. See below. Essential Medication List for Review used to complete this medication reconciliation. INCLUDED IN THIS LIST: Alphabetical list of active outpatient prescriptions [facility] from [facility] ([facility]) and dispensed from another [place] or [facility] facility (remote) as well as inpatient orders (local, pending and active), local clinic medications, locally documented non-VA medications, and local prescriptions that have or been discontinued in the past 90 days. - Discrepancies were identified, addressed, and discussed with the patient/caregiver at this encounter. Discrepancies: Patient says he is not taking furosemide. He has stopped tocilizumab. - All changes in medications, including all [...] Remote Allergy/ADR Data available for this patient [place] [facility] [place] [facility] [place] [facility] [place] [facility] Med Recon [facility] (Tool #1) INCLUDED IN THIS LIST: Alphabetical list of active outpatient prescriptions dispensed from this [place] (local) and dispensed from another [place] or [facility] facility (remote) as well as inpatient orders (local pending and active), local clinic medications, locally documented non-VA medications, and local prescriptions that have or been discontinued in the past 90 days. Non-VA Meds Last Documented On: Oct 09, 2023 NOTE The display of VA prescriptions dispensed from another [place] or [facility] facility (remote) is limited to active outpatient prescription entries matched to National Drug File at the originating site and may not include some items such as investigational drugs, compounds, etc. NOT INCLUDED IN THIS LIST: Medications self-entered by the patient into personal health records (i.e. ehealthtracker) are NOT included in this list. Non-VA medications documented outside this [place], remote inpatient orders (regardless of status) and [...] DO NOT TAKE WITH [employer] Rx# [id number] Last Released: 08/13/24 Qty/Days Supply: Rx Expiration Date: 08/10/25 Refills Remainin Indication: FOR HIGH BLOOD PRESSURE Non-VA ASPIRIN 81MG EC TAB TAKE ONE TABLET BY MOUTH ONCE DAILY OUTPT ATORVASTATIN CALCIUM 80MG TAB (Status = Active) TAKE ONE-HALF TABLET BY MOUTH ONCE DAILY Rx# [id number] Last Released: 06/25/24 Qty/Days Supply: 45 Rx Expiration Date: 02/27/25 Refills Remainin Indication: FOR HIGH CHOLESTEROL OUTPT CALCIUM 200MG ([place] CITRATE-950MG) TAB (Status = Active) TAKE FOUR TABLETS BY MOUTH TWICE DAILY Rx# [id number] Last Released: 05/08/24 Qty/Days Supply: 800/90 Rx Expiration Date: 11/27/24 Refills Remainin Indication: FOR OSTEOPOROSIS Non-VA CHOLECALCIF 50MCG (D3-2,000UNIT) TAB TAKE ONE TABLET BY MOUTH ONCE DAILY Aug 11, 2020 Non-VA medication not recommended by VA provider. OUTPT CITALOPRAM HYDROBROMIDE 10MG TAB (Status = Discontinued) TAKE ONE-HALF TABLET BY MOUTH ONCE DAILY FOR DEPRESSION AND ANXIETY Rx# [id number] Last Released: 05/28/24 Qty/Days Supply: 45 Rx Expiration Date: 02/28/25 Refills Remainin Indication: FOR MAJOR DEPRESSIVE DISORDER Non-VA CYCLOBENZAPRINE HCL 10MG TAB TAKE ONE TABLET BY MOUTH TWICE DAILY OUTPT CYCLOBENZAPRINE HCL 10MG TAB (Status = Active) TAKE ONE TABLET BY MOUTH TWICE DAILY NEEDED FOR MUSCLE SPASM Rx# [id number] Last Released: 08/13/24 Qty/Days Supply: 180 Rx Expiration Date: 08/10/25 Refills Remainin Indication: FOR MUSCLE SPASM OUTPT DENOSUMAB 60MG/ML INJ SYRINGE 1ML (Status = ) INJECT 60MG/1ML SUBCUTANEOUSLY ONE TIME FOR OSTEOPOROSIS Rx# [id number] Last Released: 05/07/24 Qty/Days Supply: 07/18 Rx Expiration Date: 05/30/24 Refills Remainin Indication: FOR OSTEOPOROSIS Non-VA FUROSEMIDE 20MG TAB TAKE ONE TABLET BY MOUTH ONCE DAILY OUTPT GABAPENTIN 600MG TAB (Status = Discontinued) TAKE ONE TABLET BY MOUTH THREE TIMES A DAY Rx# [id number] Last Released: 07/10/24 Qty/Days Supply: 270/ Rx Expiration Date: 09/30/24 Refills Remainin OUTPT GABAPENTIN 600MG TAB (Status = Active/Suspended) TAKE ONE TABLET BY MOUTH THREE TIMES A DAY Rx# [id number] Last Released: Qty/Days Supply: 270 Rx Expiration Date: 11/14/24 Refills Remainin OUTPT GLUCOSE 4GM CHEW TAB (Status = Active) CHEW ONE TABLET BY MOUTH EVERY DAY NEEDED FOR LOW BLOOD SUGAR Rx# [id number] Last Released: 04/08/24 Qty/Days Supply: 20 Rx Expiration Date: 04/03/25 Refills Remainin Indication: FOR LOW BLOOD SUGAR OUTPT HYDROXYCHLOROQUINE SULFATE 200MG TAB (Status = Discontinued) TAKE TWO TABLETS BY MOUTH ONCE DAILY 5 DAYS A WEEK, AND 1 TABLET DAILY 2 DAYS A WEEK. Rx# [id number] Last Released: 05/23/24 Qty/Days Supply: 144/90 Rx Expiration Date: 08/19/24 Refills Remainin OUTPT HYDROXYCHLOROQUINE SULFATE 200MG TAB (Status = Active) TAKE ONE TABLET BY MOUTH ONCE DAILY MONDAY-MONDAY AND THEN TAKE 1 TABLET TWICE DAILY ON MONDAY AND MONDAY. DO NOT TAKE WITH CITALOPRAM Rx# [id number] Last Released: 08/01/24 Qty/Days Supply: 10890 Rx Expiration Date: 08/01/25 Refills Remainin OUTPT INSULIN,ASPART,HUMAN 100 UNIT/ML INJ (Status = Active) INJECT 80 UNITS SUBCUTANEOUSLY EVERY DAY DIRECTED FOR USE WITH CONTINUOUS SUBCUTANEOUS INSULIN INFUSION DEVICE Rx# [id number] Last Released: 06/04/24 Qty/Days Supply: 8 Rx Expiration Date: 09/01/24 Refills Remainin Indication: FOR DIABETES OUTPT KETOCONAZOLE 2% CREAM (Status = ) APPLY A THIN LAYER TOPICALLY TWICE DAILY RASH APPLY TO AFFECTED AREAS ON FACE TWICE DAILY FOR 4 WEEKS, THEN NEEDED Rx# [id number] Last Released: 07/21/23 Qty/Days Supply: 120/30 Rx Expiration Date: 07/13/24 Refills Remainin Indication: RASH OUTPT KETOCONAZOLE 2% SHAMPOO (Status = ) SHAMPOO SMALL AMOUNT TOPICALLY TWICE A WEEK NEEDED APPLY FOR 8 WEEKS, THEN NEEDED Rx# [id number] Last Released: 06/25/24 Qty/Days Supply: 240/30 Rx Expiration Date: 07/13/24 Refills Remainin Indication: SCALP RASH OUTPT LEFLUNOMIDE 20MG TAB (Status = ) TAKE ONE TABLET BY MOUTH ONCE DAILY Rx# [id number] Last Released: 05/02/24 Qty/Days Supply: 90/ Rx Expiration Date: 07/29/24 Refills Remainin OUTPT LEFLUNOMIDE 20MG TAB (Status = Active) TAKE ONE TABLET BY MOUTH ONCE DAILY Rx# [id number] Last Released: 08/01/24 Qty/Days Supply: 90/ Rx Expiration Date: 08/01/25 Refills Remainin OUTPT LOSARTAN 100MG TAB (Status = Active) TAKE ONE TABLET BY MOUTH ONCE DAILY FOR BLOOD PRESSURE/HEART Rx# [id number] Last Released: 08/13/24 Qty/Days Supply: 90/ Rx Expiration Date: 08/10/25 Refills Remainin Indication: FOR HIGH BLOOD PRESSURE OUTPT MULTIVIT/OPHTH AREDS2/LUTE/ZEAX CAP/TAB (Status = Active) TAKE 1 CAPSULE BY MOUTH TWICE DAILY IN THE MORNING AND EVENING, WITH FOOD Rx# [id number] Last Released: 06/25/24 Qty/Days Supply: 120/60 Rx Expiration Date: 04/30/25 Refills Remainin Non-VA OMEPRAZOLE 20MG EC CAP TAKE 1 CAPSULE BY MOUTH EVERY DAY Non-VA PILOCARPINE HCL 5MG TAB TAKE ONE TABLET BY MOUTH TWICE DAILY Dec 04, 2020 Non-VA medication not recommended by VA provider. OUTPT PILOCARPINE HCL 5MG TAB (Status = Active) TAKE ONE TABLET BY MOUTH TWICE DAILY Rx# [id number] Last Released: 08/15/24 Qty/Days Supply: 180/ Rx Expiration Date: 08/14/25 Refills Remainin OUTPT PREDNISONE 2.5MG TAB (Status = Active) TAKE THREE TABLETS BY MOUTH ONCE DAILY Rx# [id number] Last Released: 06/25/24 Qty/Days Supply: 90/30 Rx Expiration Date: 04/30/25 Refills Remainin OUTPT PREDNISONE 5MG TAB (Status = Active) TAKE ONE TABLET BY MOUTH ONCE DAILY Rx# [id number] Last Released: 08/01/24 Qty/Days Supply: 90/ Rx Expiration Date: 08/01/25 Refills Remainin OUTPT PSYLLIUM ORAL PWD (Status = Active) TAKE 2 TEASPOONFULS BY MOUTH ONCE DAILY FOR CONSTIPATION (MIX WITH AT LEAST 8OZ. OF WATER OR OTHER FLUID) Rx# [id number] Last Released: 08/06/24 Qty/Days Supply: Rx Expiration Date: 07/31/25 Refills Remainin Indication: FOR CONSTIPATION OUTPT TAMSULOSIN HCL 0.4MG CAP (Status = Active/Suspended) TAKE TWO CAPSULES BY MOUTH AT BEDTIME Rx# [id number] Last Released: 07/10/24 Qty/Days Supply: 180 Rx Expiration Date: 01/22/25 Refills Remainin OUTPT TOCILIZUMAB 162MG/0.9ML INJ SYR 0.9ML (Status = Active) INJECT 162MG SUBCUTANEOUSLY EVERY 2 WEEKS Rx# [id number] Last Released: 07/09/24 Qty/Days Supply: 08/16 Rx Expiration Date: 04/12/25 Refills Remainin SUPPLIES OUTPT GLUCOSE SENSOR DEXCOM G7 (Status = Active) USE 1 SENSOR DIRECTED EVERY 10 DAYS Rx# [id number] Last Released: 06/25/24 Qty/Days Supply: Rx Expiration Date: 06/18/25 Refills Remainin OUTPT INSULIN SYRINGE 1ML 30G 12MM (Status = Active) USE ONE SYRINGE SUBCUTANEOUSLY EVERY THIRD DAY FOR INSULIN INJECTIONS Rx# [id number] Last Released: 08/16/24 Qty/Days Supply: 100 Rx Expiration Date: 08/17/25 Refills Remainin OUTPT INSULIN SYRINGE 1ML 31G 8MM (Status = Discontinued) USE 1 SYRINGE EVERY THIRD DAY FOR INSULIN INJECTIONS Rx# [id number] Last Released: 07/16/24 Qty/Days Supply: 10090 Rx Expiration Date: 10/13/24 Refills Remainin OUTPT RESERVOIR,T:SLIM X2 W/T:LOCK,3ML (Status = Active) USE 1 RESERVOIR DIRECTED EVERY THIRD DAY Rx# [id number] Last Released: 07/16/24 Qty/Days Supply: Rx Expiration Date: 07/17/25 Refills Remainin OUTPT SET,INFUSION VARISOFT TANDEM #[id number] (Status = Active) 1 INFUSION SET DIRECTED Rx# [id number] Last Released: 08/14/24 Qty/Days Supply: Rx Expiration Date: 08/09/25 Refills Remainin OUTPT SET,INFUSION VARISOFT TANDEM #[id number] (Status = Active) 1 SET (17MM 43'') EVERY THIRD DAY Rx# [id number] Last Released: 07/16/24 Qty/Days Supply: Rx Expiration Date: 07/17/25 Refills Remainin OUTPT SYRINGE 2.5-3ML/NDL 21G 1IN (Status = Active) USE 1 SYRINGE EVERY THIRD DAY Rx# [id number] Last Released: Qty/Days Supply: Rx Expiration Date: 07/18/25 Refills Remainin /es/ JOANA CRENSHAW MD SURGEON Signed: 08/21/2024 09:55 JOANA CRENSHAW [place] [facility]
--- OUTSIDE RECORDS SUMMARY | 2024-10-01 11:28 | XMS_ITS | Encounter Summary ---
Author Name [facility] [place] Organization [facility] [place] Address [address] [place] [id number] Care Team Providers Care Dye Beck Reel Operator Name Role Phone TOÑO PETER Primary Care [...] [place] SUPPLEMEN MASTER PSUED O MEDEX BRON E Mar 19, 2004 [id number] HOLLIE SHEPHERD PATIENT [place] MED[place] SUPPLEMEN MASTER MEDEX BRONZ E Mar 19, 2004 [id number] HOLLIE SHEPHERD [place]IENT [place] SUPPLEMEN MASTER MEDEX BRONZ E Mar 19, 2004 [id number] [phone] HOLLIE SHEPHERD PATIENT BCBS [facility] MEDICARE SUPPLEMEN MASTER PSUED O MEDEX BRONZ E Mar 19, 2004 [id number] [phone] HOLLIE SHEPHERD PATIENT MEDICARE (WNR) MEDICARE (M) PART B Mar 19, 2004 PART B [id number] HOLLIE SHEPHERD PATIENT MEDICARE (WNR) MEDICARE (M) PART B Mar 19, 2004 PART B [id number] [phone] HOLLIE SHEPHERD PATIENT MEDICARE (WNR) MEDICARE (M) PART B Mar 19, 2004 PART B [id number] HOLLIE SHEPHERD ALD PATIENT MEDICARE (WNR) MEDICARE (M) PART A Feb 17, 2003 PART A [id number] [phone] HOLLIE SHEPHERD ALD PATIENT MEDICARE (WNR) MEDICARE (M) PART A Feb 17, 2003 PART A [id number] [phone] HOLLIE SHEPHERD PATIENT MEDICARE (WNR) MEDICARE (M) PART A Feb 17, 2003 PART A [id number] HOLLIE SHEPHERD PATIENT MEDICARE (WNR) MEDICARE (M) PART A Feb 17, 2003 PART A [id number] HOLLIE SHEPHERD PATIENT MEDICARE (WNR) MEDICARE (M) PART B Feb 17, 2003 PART B [id number] HOLLIE SHEPHERD PATIENT MEDICARE (WNR) MEDICARE (M) PART A Feb 17, 2003 PART A [id number] HOLLIE SHEPHERD PATIENT MEDICARE (WNR) MEDICARE (M) PART B Feb 17, 2003 PART B [id number] [phone] HOLLIE SHEPHERD PATIENT Selected Encounter This section includes the information on record at [place] for the Encounter. Date/Time Encounter Type Encounter Description Reason Pro vider Source Oct 09, 2023 09:42 PM Outpatient Encounter ADMIN PAT ACTIVTIES (MASNONCT) IHE Encounter Template Text not used by [place] Plan of Treatment: Future Appointments (+ 6 months) and Future Tests (+/- 45 days) The Plan of Treatment section includes future care activities for the patient from all [place] treatmentfacilities. This section includes future appointments and future orders which are active, pending or scheduled. Future Appointments This section includes appointments that were scheduled to occur 6 months from the date of the Encounter, up to a maximum of 20 appointments. The data comes from all [place] treatment facilities. Appointment Date/Time Appointment Type Appointme nt Facility Name Oct 10, 2023 02:30 PM AMBULATORY - MEDICINE [facility] [place] [facility] October 18, 2023 01:00 PM AMBULATORY - MEDICINE [facility] [place] [facility] November 01, 2023 10:30 AM AM[place]ULATORY [place] [facility] November 01, 2023 10:30 AM AMBULATORY - PSYCHIATRY [facility] [place] [facility] November 01, 2023 11:15 AM AMBULATORY - MEDICINE [facility] [place] [facility] November 01, 2023 01:30 PM AMBULATORY - MEDICINE [facility] [place] [facility] November 02, 2023 11:15 AM AMBULATORY - MEDICINE [facility] [place] [facility] November 02, 2023 11:30 AM AMBULATORY - MEDICINE [facility] [place] [facility] November 06, 2023 02:50 PM AMBULATORY - MEDICINE [facility] [place] [facility] Nov 22, 2023 10:00 AM AMBULATORY - MEDICINE [facility] [place] [facility] Nov 27, 2023 02:00 PM AMBULATORY - MEDICINE [facility] [place] [facility] Feb 12, 2024 10:00 AM AMBULATORY - MEDICINE [facility] [place] [facility] Feb 28, 2024 01:00 PM AMBULATORY [place] [facility] Feb 28, 2024 01:00 PM AMBULATORY - PSYCHIATRY [facility] [place] [facility] Mar 25, 2024 10:00 AM AMBULATORY - MEDICINE [facility] [place] [facility] Mar 25, 2024 10:30 AM AMBULATORY - MEDICINE [facility] [place] [facility] Apr 02, 2024 02:00 PM AMBULATORY - MEDICINE [facility] [place] [facility] Apr 04, 2024 02:00 PM AMBULATORY - MEDICINE [facility] [place] [facility] Apr 08, 2024 01:00 PM AMBULATORY - REHAB MEDICIN E [facility] [place] [facility] Active, Pending, and Scheduled Orders This section includes a listing of several types of active, pending, and scheduled orders, including clinic medications orders, diagnostic test orders, procedure orders and consult orders; where the start date of the order is 45 days before the date of the Encounter or 45 days after the date of theEncounter. The data comes from all [place] treatment facilities. Test Date/Time Test Type Test Details Facility Name Oct 10, 2023 12:00 AM Laboratory - Chemi stry Order SURGICAL PATH ORDER SURG PATH SPEC. UNKNOWN SP [facility] Lab Results: +/- 30 days of the encounter This section includes the Chemistry and Hematology Lab Results on record with [place] for the patient. Radiology Reports and Pathology Reports are provided separately, in subsequent sections. Lab Results This section contains the Chemistry/Hematology Results that were resulted 30 days before or 30 daysafter the date of the Encounter. Date/Time Source Result Type Result - Unit Interpretation Reference Range Specimen Type Comment Oct 11, 2023 01:27 PM [facility] MICROALBUMIN CREATININE RATIO PANEL URINE Spe cimen Type: URINE No comment entered. Ordering Provider: ALLIE CUELLO Report Released Date/Time: Jul 26, 2023 10:12 AM Reporting Lab: [facility] [address] [phone] Performing Lab: [facility] [address] [phone] MICROALBUMIN/CREATININE RATIO 7.1 mg/g 0 -29.9 MICROALBUMIN,QUANTITATIVE 0.8 mg/dL RR U NAVAIL CREATININE URINE 113.29 mg/dL Oct 10, 2023 03:42 PM [facility] LIVER FUNCTION SERUM Specimen Type: SERUM Comment: *BASIC METABOLIC PANEL (fasting) Not Performed: Oct 10, 2023@15:51 b *PUBLICATION EDITOR Reason: dup *LIPID PANEL FASTING Not Performed: Oct 10, 2023@15:51 by [id number] *PUBLICATION EDITOR Reason: dup Ordering Provider: OTÑO PETER Report Released Date/Time: Jun 05, 2023 11:22 AM Reporting Lab: [facility] [address] [address] Performing Lab: [facility] [address] [address] PROTEIN,TOTAL 6.0 g/dL 6.0-8.3 ALBUMIN 4.2 g/dL 3.5-5.0 ALKALINE PHOSPHATASE 89 U/L 40-150 AST 29 U/L 5-34 ALT 29 U/L BILIRUBIN, TOTAL 1.3 mg/dL H 0.2-1.2 BILIRUBIN, DIRECT 0.5 mg/dL 0-0.5 Oct 10, 2023 03:41 PM [facility] TESTOSTERONE, TOTAL (WHV) SERUM Specimen Type : SERUM No comment entered. Ordering Provider: ALLIE CUELLO Report Released Date/Time: Jul 26, 2023 10:12 AM Reporting Lab: [facility] [place] [facility] [address] [phone] Performing Lab: [facility]ITAL[facility] [address] [address] TESTOSTERONE, TOTAL (WHV) 755.20 ng/dL 2 20.00-892.00 Oct 10, 2023 03:41 PM [facility] PSA SERUM Specimen Type: SERUM No comment entered. Ordering Provider: ALLIE CUELLO Report Released Date/Time: Jul 26, 2023 10:12 AM Reporting Lab: [facility] [place] [facility] [address] [phone] Performing Lab: [facility]ITAL[facility]ETS [address] [address] PSA 4.74 ng/mL H 0.00-4.00 Oct 10, 2023 03:41 PM [facility] HEMOGLOBIN A1C PANEL BLOOD Specimen Type: BLO [...] Jul 26, 2023 10:12 AM Reporting Lab: [facility]ITALUSE[address] [address] Performing Lab: [address] [address] HEMOGLOBIN A1C 6.7 H 4.0-5.6 Oct 10, 2023 03:41 PM [facility] CBC BLOOD Specimen Type: BLOOD No comment entered. Ordering Provider: ALLIE CUELLO Report Released Date/Time: Jul 26, 2023 10:12 AM Reporting Lab: [facility] [address] [address] Performing Lab: [facility] [address] [address] WBC 5.42 10*3/uL 4.50-11.00 RBC 4.87 10*6/uL 4.23-5.66 HGB 12.5 g/dL L 12.8-17 HCT 39.4 39.2-50.4 MCV 80.9 fL L 82-99 MCHC 31.7 g/dL 30.8-35.1 PLT 123 10*3/uL L 140-360 RDW-CV 14.7 12.0-16.0 MCH 25.7 pg L 26.2-32.6 Oct 10, 2023 03:41 PM [facility] LIPID PANEL FASTING SERUM Specimen Type: SERU M No comment entered. Ordering Provider: ALLIE CUELLO Report Released Date/Time: Jul 26, 2023 10:12 AM Reporting Lab: [facility] [address] [address] Performing Lab: [facility] [address] [address] CHOLESTEROL 96 mg/dL TRIGLYCERIDE 101 mg/dL 0-150 LDL calculated 44 mg/dL 0-129 CHOL/HDL 3.0 HDL CHOLESTEROL 32 mg/dL L 40-60 Oct 10, 2023 03:41 PM [facility] CALCIUM SERUM Specimen Type: SERUM No comment entered. Ordering Provider: ALLIE CUELLO Report Released Date/Time: Oct 10, 2023 07:35 AM Reporting Lab: [facility]ITAL[facility] [address] [address] Performing Lab: [facility]ITALUSE[address] [address] CALCIUM 9.1 mg/dL 8.5-10.2 Oct 10, 2023 03:41 PM [facility] VITAMIN D (25-OH) SERUM Specimen Type: SERUM No comment entered. Ordering Provider: ALLIE CUELLO Report Released Date/Time: Oct 10, 2023 07:35 AM Reporting Lab: [address] [address] Performing Lab: [address] [address] VITAMIN D (25-OH) 41 ng/mL 20-50 Oct 10, 2023 03:41 PM [facility] BASIC METABOLIC PANEL (fasting) SERUM Specime n Type: SERUM No comment entered. Ordering Provider: ALLIE CUELLO Report Released Date/Time: Jul 26, 2023 10:12 AM Reporting Lab: [address] [address] Performing Lab: [address] [address] UREA NITROGEN 22 mg/dL 7-25 GLUCOSE 172 [...] 87 118/74 18 97 4 184 31 [facility] Social History: Smoking Status (Most current) and Tobacco Use (All prior to encounter date) This section includes the most current, and the historical, smoking and tobacco- related health factors from the [place] facility where the Encounter took place. Current Smoking Status This section includes the most current smoking, or tobacco-related health factor, from the [place] facility where the Encounter took place. Date/Time Current Smoking Status Comment Facil ity Jun 05, 2023 11:00 AM VA-TOBACCO [facility] [place] [facility] Tobacco Use History This section includes a history of the smoking, or tobacco-related health factors, that were collected on or before the date of the Encounter. The data comes from the [place] facility where the Encounter took place. Date/Time Smoking Status/Tobac co Use Comment [facility] Jun 05, 2023 11:00 AM VA-TOBACCO QUIT 15 YRS OR MORE [facility] [place] [facility] Jun 06, 2022 01:00 PM VA-TOBACCO FORMER USER [facility] [place] [facility] Jun 06, 2022 01:00 PM VA-TOBACCO QUIT 15 YRS OR MORE [facility] [place] [facility] Jun 30, 2021 02:37 PM VA-TOBACCO FORMER USER [facility] [place] [facility] Jun 30, 2021 02:37 PM VA-TOBACCO QUIT 5 TO < 15 YRS [facility] [place] [facility] May 22, 2020 03:30 PM VA-TOBACCO NEVER USED [facility] [place] [facility] May 08, 2018 02:03 PM VA-TOBACCO FORMER USER [facility] [place] [facility] May 08, 2018 02:03 PM VA-TOBACCO QUIT 15 YRS OR MORE [facility] [place] [facility] November 10, 2017 02:33 PM QUIT TOBACCO USE > 7 YEARS AGO [facility] [place] [facility] October 21, 2016 01:55 PM QUIT TOBACCO USE > 7 YEARS AGO [facility] [place] [facility] Sep 18, 2015 11:24 AM QUIT TOBACCO USE > 7 YEARS AGO stopped 50 years ago [facility] [place] [facility] May 19, 2005 08:01 AM HISTORY OF SMOKING [facility] [place] [facility] May 31, 2004 01:02 PM HISTORY OF SMOKING [facility] [place] [facility] Jun 04, 2003 07:57 AM HISTORY OF SMOKING [facility] [place] [facility] Jun 03, 2002 01:11 PM HISTORY OF SMOKING [facility] [place] [facility] Jun 03, 2002 01:11 PM QUIT TOBACCO USE > 7 YEARS AGO [facility] Advance Directives: All historical and current Section Date Range: From patient's date of to the date document was created. This section includes ALL of a patient's completed or amended [place] Advance and Rescinded Directives. The entries below indicate that a directive exists for the patient, but an actual copy is not included with this document. The data comes from all [place] facilities. Date Advance Directives Provider Source Jun 02, 2023 ADVANCE DIRECTIVE JENNIFER QUIROS [facility] Pathology Reports: +/- 30 days [...] the Encounter. The data comes from all [place] treatment facilities. Date/Time Pathology Report Provider Source Oct 12, 2023 10:54 AM LR SURGICAL PATHOLOGY REPORT: LOCAL TITLE: LR SURGICAL PATHOLOGY REPORT STANDARD TITLE: PATHOLOGY DIAGNOSTIC STUDY REPORT DATE OF NOTE: OCT 12, 2023@10:54:23 ENTRY DATE: OCT 12, 2023@10:54:23 AUTHOR: LESTER ANDERSON MD EXP COSIGNER: URGENCY: STATUS: COMPLETED $APHDR Reporting Lab: [facility] [CLIA# [id number]] [address] [place] [phone] - - - - - - - [...] - - - PATHOLOGY REPORT Accession No. [facility] 174 - - - - - - - - - - - - - - - - - - - - - - - - - - - - - - - - - - - - - - - - Gross description: [facility] 1924;A;1;Nisa SHEPHERD This is a [facility] case number [facility] [id number]. Received in formalin is [...] lateral and deep tissue margins. CPT codes 17327b6 /thomas/ LESTER ANDERSON MD Board Certified Dermatopathologist Signed Oct 12, 2023@10:54 Performing Laboratory: Surgical Pathology Report Performed By: [facility] [CLIA# [id number]] [address] [place] [phone] $FTR - - - - - - [...] - - BEBO SHEPHERD STANDARD FORM 515 ID:[id number] SEX:M :1940 AGE: 83 LOC:CWM/NO/CVT/DERMATOLOGY/N P PCP: RUBY Long /thomas/ LESTER ANDERSON MD Board Certified Dermatopathologist Signed: 10/12/2023 10:54 LESTER ANDERSON MD [facility] Encounter Notes: All associated encounter notes This section contains the clinical notes associated to the Encounter. Date/Time Encounter Note(s) Provider Source Oct 09, 2023 09:43 PM PHARMACY NOTE: LOCAL TITLE: V1 PHARMACY CUSTOMER CARE MEDICATION RENEWAL STANDARD TITLE: PHARMACY NOTE DATE OF NOTE: OCT 09, 2023@21:43 ENTRY DATE: OCT 09, 2023@21:43:35 AUTHOR: BARBARA SCHULZ COSIGNER: URGENCY: STATUS: COMPLETED Date: Sep Division: [place] Pt referred by Pharmacy Call Center for medication renewal: Non-controlled/maintenanc e medication Medications requested: [id number] CITALOPRAM HYDROBROMIDE 20MG TAB Defer to specialty clinic To be mailed . Please review and renew if appropriate. *This note was generated by [facility]/[place] [facility] Customer [facility]. If you have any questions or need assistance, do not contact this author. Please refer all questions to your local, on-site pharmacy departments. /benny SCHULZ CPhT [employer], [place]/Pharmacy Customer Care Signed: 10/09/2023 21:43 Receipt Acknowledged By: 10/10/2023 08:18 /thomas/ Scott Paul MD PSYCHIATRIST, PSYCHIATRY BARBARA SCHULZ [facility] Oct 09, 2023 09:42 PM PHARMACY NOTE: LOCAL TITLE: V1 PHARMACY CUSTOMER CARE MEDICATION RENEWAL STANDARD TITLE: PHARMACY NOTE DATE OF NOTE: OCT 09, 2023@21:42 ENTRY DATE: OCT 09, 2023@21:42:51 AUTHOR: BARBARA SCHULZ COSIGNER: URGENCY: STATUS: COMPLETED Date: Sep Division: [place] Pt referred by Pharmacy Call Center for medication renewal: Non-controlled/maintenanc e medication Medications requested: [id number] TAMSULOSIN HCL 0.4MG CAP Defer to primary care provider To be mailed . Please review and renew if appropriate. *This note was generated by [facility]/[place] [facility] Customer [facility]. If you have any questions or need assistance, do not contact this author. Please refer all questions to your local, on-site pharmacy departments. /benny SCHULZ CPhT [employer], [place]/[facility]arm[facility] Customer [facility] Signed: 10/09/2023 21:43 Receipt Acknowledged By: 10/10/2023 09:19 /es/ VIJAYA KENDALL, RN REGISTERED NURSE 10/10/2023 09:15 /es/ Toño Peter PA-C STAFF PHYSICIAN COUNTER PROFESSIONAL BARBARA SCHULZ [facility]
--- OUTSIDE RECORDS SUMMARY | 2024-10-01 11:28 | XMS_ITS | Encounter Summary ---
Author Organization [facility] Address [address] [place] [address] Care Team Providers Care Pin Drafter Name Role Phone Jamilah Bueno Primary Care Provider [phone] Encounter Details Date Type Department Care Team (Late st Contact Info) Description 07/13/2024 Lab Requisition [facility] - Main Lab [address] [facility] [place] [address] Trina Brock MD [address] [id number] Other retirement (current) drug therapy Social History Tobacco Use [...] Description 10/30/2024 1:30 PM EDT Ancillary Procedure [facility] [address] [facility] [address] [place] [address] 11/04/2024 3:40 PM EDT Office Visit [facility] [address] [place] [address] Goldy Butler NP [address] [place] [address] [address] [place] [address] 02/24/2025 11:10 AM EDT Office Visit [facility] [address] [place] [id number] Emmie Pickens, PATTI [address] [place] [address] Dr [address] [place] [address] documented as of this encounter Procedures Procedure Name Priority Date/Time Associated Diagnosis Comments CBC WITH AUTO DIFFERENTIAL Routine 07/13/2024 7:29 AM EST Other retirement (current) drug therapy CBC AND DIFFERENTIAL Routine 07/13/2024 7:29 AM EST Other retirement (current) drug therapy BASIC METABOLIC PANEL Routine 07/13/2024 7:29 AM EST Other retirement (current) drug therapy documented in this encounter Results * (ABNORMAL) CBC auto differential (07/13/2024 7:29 AM EST) WBC 2.2(L) 4.8 - 10.8 K/mcL LAB HEMETOLOGY METHOD 07/13/2024 10:20 AM EST [facility] RBC 3.20(L) 4.50 - 5.50 M/[facility] LAB HEMETOLOGY METHOD 07/13/2024 10:20 AM EST [facility] Hemoglobin 10.0(L) 13.5 - 17.5 g/dL LAB HEMETOLOGY METHOD 07/13/2024 10:20 AM [facility] Hematocrit 30.1(L) 42.0 - 54.0 % LAB HEMETOLOGY METHOD 07/13/2024 10:20 AM [facility] MCV 93.8 79.0 - 98.0 FL LAB HEMETOLOGY METHOD 07/13/2024 10:20 AM [facility] MCH 31.2 27.0 - 32.0 pcg LAB HEMETOLOGY METHOD 07/13/2024 10:20 AM [facility] MCHC 33.2 32.0 - 37.0 g/dL LAB HEMETOLOGY METHOD 07/13/2024 10:20 AM [facility] RDW 14.6 11.0 - 15.0 % LAB HEMETOLOGY METHOD 07/13/2024 10:20 AM [facility] Platelets 85(L) 130 - 400 K/mcL LAB HEMETOLOGY METHOD 07/13/2024 10:20 AM [facility] Comment:reviewed by slide MPV 8.7 7.0 - 11.0 FL LAB HEMETOLOGY METHOD 07/13/2024 10:20 AM [facility] NRBC 0.0 <1.0 % LAB HEMETOLOGY METHOD 07/13/2024 10:20 AM [facility] NRBC Absolute 0.00 <0.10 K/mcL LAB HEMETOLOGY METHOD 07/13/2024 10:20 AM [facility] Neutrophils Relative 43.6 % LAB HEMETOLOGY METHOD 07/13/2024 10:20 AM [facility] Lymphocytes Relative 28.9 % LAB HEMETOLOGY METHOD 07/13/2024 10:20 AM [facility] Monocytes Relative 23.9 % LAB HEMETOLOGY METHOD 07/13/2024 10:20 AM [facility] Eosinophils Relative 1.8 % LAB HEMETOLOGY METHOD 07/13/2024 10:20 AM [facility] Basophils Relative 1.8 % LAB HEMETOLOGY METHOD 07/13/2024 10:20 AM EST [facility] Immature Granulocytes Relative 0.0 % LAB HEMETOLOGY METHOD 07/13/2024 10:20 AM EST [facility] Neutrophils Absolute 0.95(L) 1.50 - 7.00 K/[facility] LAB HEMETOLOGY METHOD 07/13/2024 10:20 AM [facility] Lymphocytes Absolute 0.63(L) 1.00 - 5.00 K/mcL LAB HEMETOLOGY METHOD 07/13/2024 10:20 AM [facility] Monocytes Absolute 0.52 0.20 - 1.00 K/[facility] LAB HEMETOLOGY METHOD 07/13/2024 10:20 AM [facility] Eosinophils Absolute 0.04 0.00 - 0.50 K/mcL LAB HEMETOLOGY METHOD 07/13/2024 10:20 AM [facility] Basophils Absolute 0.04 0.00 - 0.20 K/mcL LAB HEMETOLOGY METHOD 07/13/2024 10:20 AM [facility] Immature Granulocytes Absolute 0.00 0.00 - 0.03 K/mcL LAB HEMETOLOGY METHOD 07/13/2024 10:20 AM [facility] Blood Venous blood specimen / Unknown Venipuncture / Unknown 07/13/2024 7:29 AM EST 07/13/2024 9:03 AM EST us Trina Brock MD LAB BLOOD ORDERABLES Fin al Result [facility] [address] [place] [address], * (ABNORMAL) Basic metabolic panel (07/13/2024 7:29 AM EST) Sodium 145 133 - 145 mmol/L LAB CHEMISTRY METHOD 07/13/2024 9:54 AM EST [facility] Potassium 3.0(L) 3.5 - 5.5 mmol/L LAB CHEMISTRY METHOD 07/13/2024 9:54 AM [facility] Chloride 114(H) 96 - 110 mmol/L LAB CHEMISTRY METHOD 07/13/2024 9:54 AM [facility] CO2 25 21 - 32 mmol/L LAB CHEMISTRY METHOD 07/13/2024 9:54 AM [facility] Anion Gap 6 3 - 11 LAB CHEMISTRY METHOD 07/13/2024 9:54 AM [facility] Glucose 151(H) 70 - 100 mg/dL LAB CHEMISTRY METHOD 07/13/2024 9:54 AM [facility] BUN 5 5 - 25 mg/dL LAB CHEMISTRY METHOD 07/13/2024 9:54 AM [facility] Creatinine 0.49(L) 0.70 - 1.30 mg/dL LAB CHEMISTRY METHOD 07/13/2024 9:54 AM [facility] eGFR 100 >=60 mL/min/1. 73m2 LAB CHEMISTRY METHOD 07/13/2024 9:54 AM [facility] Comment:Calculation based on the??Chronic Kidney Disease Epidemiology Collaboration (CKD-EPI) equation refit??without adjustment for race. BUN/Creatinine Ratio 10.2 LAB CHEMISTRY METHOD 07/13/2024 9:54 AM [facility] Calcium 7.6(L) 8.5 - 10.5 mg/dL LAB CHEMISTRY METHOD 07/13/2024 9:54 AM [facility] Blood Venous blood specimen / Unknown Venipuncture / Unknown 07/13/2024 7:29 AM EST 07/13/2024 9:03 AM EST us Trina Brock MD LAB BLOOD ORDERABLES Fin al Result [facility] [address] [place] [address], documented in this encounter Visit Diagnoses Diagnosis Other terminal gauger (current) drug therapy documented in this encounter Care Teams Pin Drafter Relationship Specialty Start Date End Date Jamilah Bueno PA [address] [place] [address] Dr [address] [place] [id number] PCP - General 08/23/24 documented as of this encounter
--- OUTSIDE RECORDS SUMMARY | 2024-10-01 11:28 | XMS_ITS ---
Author Name [facility] ([place]) Organization [facility] [place]) Address [address] [place] [id number] Care Team Providers Care Appliance Line Assembler Name Role Phone TOÑO CAI Primary [...] [place] MED[place] SUPPLEMEN MASTER PSUED O MEDEX [facility] E Mar 19, 2004 [id number] HOLLIE SHEPHERD PATIENT [place] MED[place] SUPPLEMEN MASTER MEDEX [place] E Mar 19, 2004 [id number] [phone] HOLLIE SHEPHERD [place] SUPPLEMEN MASTER MEDEX [place] E Mar 19, 2004 [id number] [phone] HOLLIE SHEPHERD PATIENT BCBS [facility] MEDICARE SUPPLEMEN MASTER PSUED O MEDEX [place] E Mar 19, 2004 [id number] HOLLIE SHEPHERD PATIENT MEDICARE (WNR) MEDICARE (M) PART B Mar 19, 2004 PART B [id number] [phone] HOLLIE SHEPHERD PATIENT MEDICARE (WNR) MEDICARE (M) PART B Mar 19, 2004 PART B [id number] HOLLIE SHEPHERD PATIENT MEDICARE (WNR) MEDICARE (M) PART B Mar 19, 2004 PART B [id number] [phone] HOLLIE SHEPHERD ALD PATIENT MEDICARE (WNR) MEDICARE (M) PART A Feb 17, 2003 PART A [id number] CORAHOLLIE SILVA ALD PATIENT MEDICARE (WNR) MEDICARE (M) PART A Feb 17, 2003 PART A [id number] HOLLIE SHEPHERD PATIENT MEDICARE (WNR) MEDICARE (M) PART A Feb 17, 2003 PART A [id number] HOLLIE SHEPHERD PATIENT MEDICARE (WNR) MEDICARE (M) PART A Feb 17, 2003 PART A [id number] [phone] HOLLIE SHEPHERD PATIENT MEDICARE (WNR) MEDICARE (M) PART B Feb 17, 2003 PART B [id number] [phone] HOLLIE SHEPHERD PATIENT MEDICARE (WNR) MEDICARE (M) PART A Feb 17, 2003 PART A [id number] HOLLIE SHEPHERD PATIENT MEDICARE (WNR) MEDICARE (M) PART B Feb 17, 2003 PART B [id number] [phone] HOLLIE SHEPHERD PATIENT Selected Encounter This section includes the information on record at [place] for the Encounter. Date/Time Encounter Type Encounter Description Reason Provider Source November 01, 2023 10:30 AM OFFICE O/P EST LOW 20 [facility] - IND ICD-10-CM F33.0 Major depressive disorder, recurrent, mild MEREDITH,GIHYUN IHE Encounter Template Text not used by PR Assessments - Encounter Diagnoses This section includes the primary and secondary diagnoses documented for the Encounter. Date/Time Primary/Secondary Diagnosis Diagnosis Name Provider Source Nov 24, 2023 03:43 PM PRIMARY Major depressive disorder, recurrent, mild MEREDITH,GIHYUN [place] [facility] [place] [facility] Plan of Treatment: Future Appointments (+ 6 months) and Future Tests (+/- 45 days) The Plan of Treatment section includes future care activities for the patient [facility] This section includes future appointments and future orders which are active, pending or scheduled. Future Appointments This section includes appointments that were scheduled to occur 6 months from the date of the Encounter, up to a maximum of 20 appointments. The data comes from all [place] treatment facilities. Appointment Date/Time Appointment Type Appointme nt Facility Name November 02, 2023 11:15 AM AMBULATORY - MEDICINE [facility] [place] [facility] November 02, 2023 11:30 AM AMBULATORY - MEDICINE [facility] [place] [facility] November 06, 2023 02:50 PM AMBULATORY - MEDICINE [facility] [place] [facility] Nov 22, 2023 10:00 AM AMBULATORY - MEDICINE [facility] [place] [facility] Nov 27, 2023 02:00 PM AMBULATORY - MEDICINE [facility] [place] [facility] Feb 12, 2024 10:00 AM AMBULATORY - MEDICINE [facility] [place] [facility] Feb 28, 2024 01:00 PM AMBULATORY [place] [facility] Feb 28, 2024 01:00 PM AMBULATORY - PSYCHIATRY [facility] [place] [facility] Mar 25, 2024 10:00 AM AMBULATORY - MEDICINE [facility] [facility] Mar 25, 2024 10:30 AM AMBULATORY - MEDICINE [facility] [facility] Apr 02, 2024 02:00 PM AMBULATORY - MEDICINE [facility] [facility] Apr 04, 2024 02:00 PM AMBULATORY - MEDICINE [facility] [place] [facility] Apr 08, 2024 01:00 PM AMBULATORY - REHAB MEDICIN E [facility] [place] [facility] Apr 12, 2024 09:45 AM AMBULATORY - MEDICINE [facility] [facility] Apr 16, 2024 10:00 AM AMBULATORY - REHAB MEDICIN E [facility] [place] [facility] May 02, 2024 10:00 AM AMBULATORY - REHAB MEDICIN E [facility] [place] [facility] Active, Pending, and Scheduled Orders This section includes a listing of several types of active, pending, and scheduled orders, including clinic medications orders, diagnostic test orders, procedure orders and consult orders; where the start date of the order is 45 days before the date of the Encounter or 45 days after the date of theEncounter. The data comes from all [place] treatment facilities. Test Date/Time Test Type Test Details Facility Name Oct 10, 2023 12:00 AM Laboratory - Chemi stry Order SURGICAL PATH ORDER SURG PATH SPEC. UNKNOWN SP [facility] Lab Results: +/- 30 days of the encounter This section includes the Chemistry and Hematology Lab Results on record with PR for the patient. Radiology Reports and Pathology Reports are provided separately, in subsequent sections. Lab Results This section contains the Chemistry/Hematology Results that were resulted 30 days before or 30 daysafter the date of the Encounter. Date/Time Source Result Type Result - Unit Interpretation Reference Range Specimen Type Comment Oct 11, 2023 01:27 PM [facility] MICROALBUMIN CREATININE RATIO PANEL URINE Spe cimen Type: URINE No comment entered. Ordering Provider: ALLIE CUELLO Report Released Date/Time: Jul 26, 2023 10:12 AM Reporting Lab: [facility] [address] [address] Performing Lab: [facility] [address] [address] MICROALBUMIN/CREATININE RATIO 7.1 mg/g 0 -29.9 MICROALBUMIN,QUANTITATIVE 0.8 mg/dL RR U NAVAIL CREATININE URINE 113.29 mg/dL Oct 10, 2023 03:42 PM [facility] LIVER FUNCTION SERUM Specimen Type: SERUM Comment: *BASIC METABOLIC PANEL (fasting) Not Performed: Oct 10, 2023@15:51 b *ASSISTANT CREDIT MANAGER Reason: dup *LIPID PANEL FASTING Not Performed: Oct 10, 2023@15:51 by [id number] *ASSISTANT CREDIT MANAGER Reason: dup Ordering Provider: TOÑO CAI Report Released Date/Time: Jun 05, 2023 11:22 AM Reporting Lab: [facility] [address] [address] Performing Lab: [facility] [address] [address] PROTEIN,TOTAL 6.0 g/dL 6.0-8.3 ALBUMIN 4.2 g/dL 3.5-5.0 ALKALINE PHOSPHATASE 89 U/L 40-150 AST 29 U/L 5-34 ALT 29 U/L BILIRUBIN, TOTAL 1.3 mg/dL H 0.2-1.2 BILIRUBIN, DIRECT 0.5 mg/dL 0-0.5 Oct 10, 2023 03:41 PM [facility] TESTOSTERONE, TOTAL (WHV) SERUM Specimen Type : SERUM No comment entered. Ordering Provider: ALLIE CUELLO Report Released Date/Time: Jul 26, 2023 10:12 AM Reporting Lab: [address] [address] Performing Lab: [address] [address] TESTOSTERONE, TOTAL (WHV) 755.20 ng/dL 2 20.00-892.00 Oct 10, 2023 03:41 PM [facility] PSA SERUM Specimen Type: SERUM No comment entered. Ordering Provider: ALLIE CUELLO Report Released Date/Time: Jul 26, 2023 10:12 AM Reporting Lab: [address] [address] Performing Lab: [address] [address] PSA 4.74 ng/mL H 0.00-4.00 Oct 10, 2023 03:41 PM [facility] HEMOGLOBIN A1C PANEL BLOOD Specimen Type: [...] Jul 26, 2023 10:12 AM Reporting Lab: [address] [address] Performing Lab: [facility] [address] [address] HEMOGLOBIN A1C 6.7 H 4.0-5.6 Oct 10, 2023 03:41 PM [facility] CBC BLOOD Specimen Type: BLOOD No comment entered. Ordering Provider: ALLIE CUELLO Report Released Date/Time: Jul 26, 2023 10:12 AM Reporting Lab: [facility] [place] [facility] [address] [address] Performing Lab[facility] [address] [address] WBC 5.42 10*3/uL 4.50-11.00 RBC 4.87 10*6/uL 4.23-5.66 HGB 12.5 g/dL L 12.8-17 HCT 39.4 39.2-50.4 MCV 80.9 fL L 82-99 MCHC 31.7 g/dL 30.8-35.1 PLT 123 10*3/uL L 140-360 RDW-CV 14.7 12.0-16.0 MCH 25.7 pg L 26.2-32.6 Oct 10, 2023 03:41 PM [facility] LIPID PANEL FASTING SERUM Specimen Type: SERU M No comment entered. Ordering Provider: ALLIE CUELLO Report Released Date/Time: Jul 26, 2023 10:12 AM Reporting Lab: [facility] [address] Performing Lab: [facility] [address] [address] CHOLESTEROL 96 mg/dL TRIGLYCERIDE 101 mg/dL 0-150 LDL calculated 44 mg/dL 0-129 CHOL/HDL 3.0 HDL CHOLESTEROL 32 mg/dL L 40-60 Oct 10, 2023 03:41 PM [facility] CALCIUM SERUM Specimen Type: SERUM No comment entered. Ordering Provider: ALLIE CUELLO Report Released Date/Time: Oct 10, 2023 07:35 AM Reporting [facility]: [facility] [address] Performing Lab: [facility] [address] [address] CALCIUM 9.1 mg/dL 8.5-10.2 Oct 10, 2023 03:41 PM [facility] VITAMIN D (25-OH) SERUM Specimen Type: SERUM No comment entered. Ordering Provider: ALLIE CUELLO Report Released Date/Time: Oct 10, 2023 07:35 AM Reporting Lab: [facility] [address] [address] Performing Lab: [address] [address] VITAMIN D (25-OH) 41 ng/mL 20-50 Oct 10, 2023 03:41 PM [facility] BASIC METABOLIC PANEL (fasting) SERUM Specime n Type: SERUM No comment entered. Ordering Provider: ALLIE CUELLO Report Released Date/Time: Jul 26, 2023 10:12 AM Reporting Lab: [facility] [address] [address] Performing Lab: [address] [address] UREA NITROGEN 22 mg/dL 7-25 GLUCOSE 172 [...] 76 133/77 16 96 2 184 31 [facility] Social History: Smoking Status (Most current) and Tobacco Use (All prior to encounter date) This section includes the most current, and the historical, smoking and tobacco- related health factors from the PR facility where the Encounter took place. Current Smoking Status This section includes the most current smoking, or tobacco-related health factor, from the PR facility where the Encounter took place. Date/Time Current Smoking Status Comment [facility] Jun 05, 2023 11:00 AM VA-TOBACCO FORMER USER [place] [facility] [place] [facility] Tobacco Use History This section includes a history of the smoking, or tobacco-related health factors, that were collected on or before the date of the Encounter. The data comes from the PR facility where the Encounter took place. Date/Time Smoking Status/Tobac co Use Comment Facility Jun 05, 2023 11:00 AM VA-TOBACCO QUIT 15 YRS OR MORE [place] [facility] [facility] Jun 06, 2022 01:00 PM VA-TOBACCO FORMER USER [facility] [facility] Jun 06, 2022 01:00 PM VA-TOBACCO QUIT 15 YRS OR MORE [facility] [place] [facility] Jun 30, 2021 02:37 PM VA-TOBACCO FORMER USER [place] [facility] [facility] Jun 30, 2021 02:37 PM VA-TOBACCO QUIT 5 TO < 15 YRS [facility] [facility] May 22, 2020 03:30 PM VA-TOBACCO NEVER USED [place] [facility] [place] [facility] May 08, 2018 02:03 PM VA-TOBACCO FORMER USER [place] [facility] [facility] May 08, 2018 02:03 PM VA-TOBACCO QUIT 15 YRS OR MORE [facility] [place] [facility] November 10, 2017 02:33 PM QUIT TOBACCO USE > 7 YEARS AGO [facility] [place] [facility] October 21, 2016 01:55 PM QUIT TOBACCO USE > 7 YEARS AGO [facility] [place] [facility] Sep 18, 2015 11:24 AM QUIT TOBACCO USE > 7 YEARS AGO stopped 50 years ago [facility] [place] [facility] May 19, 2005 08:01 AM HISTORY OF SMOKING [facility] [place] [facility] May 31, 2004 01:02 PM HISTORY OF SMOKING [facility] [place] [facility] Jun 04, 2003 07:57 AM HISTORY OF SMOKING [place] [facility] [place] [facility] Jun 03, 2002 01:11 PM [facility] Jun 03, 2002 01:11 PM QUIT TOBACCO USE > 7 YEARS AGO [facility] Advance Directives: All historical and current Section Date Range: From patient's date of to the date document was created. This section includes ALL of a patient's completed or amended PR Advance and Rescinded Directives. The entries below indicate that a directive exists for the patient, but an actual copy is not included with this document. The data comes from all PR facilities. Date Advance Directives Provider Source Jun 02, 2023 ADVANCE DIRECTIVE MARYANNETRICEJENNIFER Garcia [facility] Pathology Reports: +/- 30 days of [...] the Encounter. The data comes from all PR treatment facilities. Date/Time Pathology Report Provider Source Oct 12, 2023 10:54 AM LR SURGICAL PATHOLOGY REPORT: LOCAL TITLE: LR SURGICAL PATHOLOGY REPORT STANDARD TITLE: PATHOLOGY DIAGNOSTIC STUDY REPORT DATE OF NOTE: OCT 12, 2023@10:54:23 ENTRY DATE: OCT 12, 2023@10:54:23 AUTHOR: LESTER ANDERSON MD EXP COSIGNER: URGENCY: STATUS: COMPLETED $APHDR Reporting Lab: [facility] [CLIA# [id number]] [address] [place] [address] - - - - - - - [...] - - - BRIEF CLINICAL HISTORY: SANTIAGO SPECIMEN A: CENTRAL UPPER FOREHEAD 1CM ERYTHERMATOUS [...] - PATHOLOGY REPORT Accession No. [facility] 24 174 - - - - - - - - - - - - - - - - - - - - - - - - - - - - - - - - - - - - - - - - Gross description: RUST 6609;A;1;Nisa SHEPHERD This is a [facility] case number SPATH [id number]. [...] lateral and deep tissue margins. CPT codes 54440x8 /thomas/ LESTER ANDERSON MD Board Certified Dermatopathologist Signed Oct 12, 2023@10:54 Performing Laboratory: Surgical Pathology Report Performed By: [facility] [CLIA# [id number]] [address] [place] [id number] $FTR - - - - - - [...] - - BEBO SHEPHERD STANDARD FORM 515 ID:[id number] SEX:M :1940 AGE: 83 LOC:CWM/NO/CVT/DERMATOLOGY/N P PCP: RUBY Long /thomas/ LESTER ANDERSON MD Board Certified Dermatopathologist Signed: 10/12/2023 10:54 LESTER ANDERSON MD [facility] Encounter Notes: All associated encounter notes This [...] psychiatrist. Clinical [facility] are [facility] provided via [facility] from the [facility] to the [facility] through the [facility] Clinical Resource Hub. ID & Diagnoses: 83-year-old male with major depressive disorder (0% SC). , father of 4 adult children (between 54-61). Lives alone with a cat and a lot of fish in a large fish tank. Served in [employer] for 6 yrs. 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 Psychiatric Medications: Citalopram 10 mg/day for depression History of Present Illness: While taking citalopram 10 mg/day, he continues to do well. He denies clinical depression (0/10, 10 being worst). Thus, he would like to continue citalopram 10 mg/day for depression. Although he had several concerns, he has resolved all issues: 1) less knee pain (working with his financial assistance specialist), 2) he successfully completed hear valve replacement surgery, and 3) his youngest son's spine surgery was successful. He denies active stressors except some minor medical problems (skin issues, elbow bursitis). He sees his medical doctors regularly. He has several friends. He has a good relationship with his girlfriend he recently met at a evangelical, who is about 15 yrs younger than him. He still visit his 's cemetery almost daily. He continues to work as a wood wreath maker. He talks and sees his children, grandchildren, and great-grandchildren very often (usually once a week). He enjoys making wood toys, watching movies, doing yard work and lawn maintenance, and meeting with evangelical people. Denies alcohol, drug, or gambling problems. No acute psychiatric issues noted. MENTAL STATUS EXAM: Appearance/Behavior: good eye contact Speech: normal rate/rhythm Mood: fine Affect: appropriate Perceptual disturbance: no visual/auditory hallucinations Thought process: goal directed Thought content: no delusions Suicidal/Violent thoughts: none Cognition/Memory: grossly intact Insight/Judgment: good Risk assessment: [place] is determined to have LOW ACUTE RISK to self or others at this time. 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 09/19/2011 TÑOO CAI Microscopic Hematuria 599.72 08/04/2010 VESTA DE LA CRUZ MD Rosacea 695.3 07/30/2010 VESTA DE LA CRUZ MD Hypertension (SNOMED CT 94642332) I 04/26/2023 ALLIE CUELLO Spinal Stenosis * (ICD-9-CM 724.00) 02/05/2010 VESTA DE LA CRUZ MD Hyperlipidemia (SNOMED CT 56377593) 04/26/2023 ALLIE CUELLO Osteoarthritis * (ICD-9-CM 715.90) 07/02/2008 PAUL ACOSTA Lower Back Pain * (ICD-9-CM 724.2) 07/02/2008 PAUL ACOSTA Vertigo 780.4 11/28/2007 PAUL ACOSTA Diabetes mellitus type 2 (SNOMED CT 09/17/2022 ALLIE CUELLO Gastroesophageal Reflux Disorder 53 11/28/2007 PAUL ACOSTA ASSESSMENT: -Major depressive disorder: stable PLAN: -Continue citalopram 10 mg/day for depression -Follow-up: Return to clinic with entry writer on 02/13 or earlier as needed /thomas/ Radha Harper MD PSYCHIATRIST, PSYCHIATRY Signed: 11/01/2023 11:13 RADHA HARPER CN[facility]
--- OUTSIDE RECORDS SUMMARY | 2024-10-01 11:28 | XMS_ITS | Encounter Summary ---
Author Name [facility] [place] Organization [facility] [place] Address [address] [place] [id number] Care Team Providers Care Patient Service Rep Name Role Phone TOÑO PETER Primary Care [...] [place] MED[place] SUPPLEMEN MASTER PSUED O MEDEX [facility] E Mar 19, 2004 [id number] HOLLIE SHEPHERD PATIENT [place] MED[place]ARE SUPPLEMEN MASTER MEDEX [facility] E Mar 19, 2004 [id number] [phone] HOLLIE SHEPHERD PATIENT [place] MED[place] SUPPLEMEN MASTER MEDEX [place] E Mar 19, 2004 [id number] [phone] HOLLIE SHEPHERD PATIENT BCBS [facility] MEDICARE SUPPLEMEN MASTER PSUED O MEDEX BRONZ E Mar 19, 2004 [id number] HOLLIE SHEPHERD PATIENT MEDICARE (WNR) MEDICARE (M) PART B Mar 19, 2004 PART B [id number] [phone] HOLLIE SHEPHERD PATIENT MEDICARE (WNR) MEDICARE (M) PART B Mar 19, 2004 PART B [id number] HOLLIE SHEPHERD PATIENT MEDICARE (WNR) MEDICARE (M) PART B Mar 19, 2004 PART B [id number] CORAHOLLIE SILVA ALD PATIENT MEDICARE (WNR) MEDICARE (M) PART A Feb 17, 2003 PART A [id number] CORAHOLLIE SILVA ALD PATIENT MEDICARE (WNR) MEDICARE (M) PART A Feb 17, 2003 PART A [id number] HOLLIE SHEPHERD PATIENT MEDICARE (WNR) MEDICARE (M) PART A Feb 17, 2003 PART A [id number] HOLLIE SHEPHERD PATIENT MEDICARE (WNR) MEDICARE (M) PART A Feb 17, 2003 PART A [id number] [phone] CORAHOLLIE SILVA PATIENT MEDICARE (WNR) MEDICARE (M) PART B Feb 17, 2003 PART B [id number] [phone] HOLLIE SHEPHERD PATIENT MEDICARE (WNR) MEDICARE (M) PART A Feb 17, 2003 PART A [id number] [phone] HOLLIE SHEPHERD PATIENT MEDICARE (WNR) MEDICARE (M) PART B Feb 17, 2003 PART B [id number] HOLLIE SHEPHERD PATIENT Selected Encounter This section includes the information on record at [place] for the Encounter. Date/Time Encounter Type Encounter Description Reason Provider Source Oct 09, 2023 10:00 AM OFFICE O/P EST LOW 20 MIN PRIMARY CARE/MEDICINE ICD-10-CM I35.9 Nonrheumatic aortic valve disorder, unspecified JACINTO PETER [facility] Encounter Template Text not used by [place] Assessments - Encounter Diagnoses This section includes the primary and secondary diagnoses documented for the Encounter. Date/Time Primary/Secondary Diagnosis Diagnosis Name Provider Source October 31, 2023 04:35 PM PRIMARY Nonrheumatic aortic valve disorder, unspecified JACINTO PETER [facility] Plan of Treatment: Future Appointments (+ 6 months) and Future Tests (+/- 45 days) The Plan of Treatment section includes future care activities for the patient [facility] This section includes future appointments [...] [facility] [place] [facility] October 18, 2023 01:00 PM AMBULATORY - MEDICINE [facility] [place] [facility] November 01, 2023 10:30 AM AM[facility]ULATORY [facility] November 01, 2023 10:30 AM AMBULATORY - PSYCHIATRY [facility] [place] [facility] November 01, 2023 11:15 AM AMBULATORY - MEDICINE [facility] [place] [facility] November 01, 2023 01:30 PM AMBULATORY - MEDICINE [facility] [place] [facility] November 02, 2023 11:15 AM AMBULATORY - MEDICINE [facility] [place] [facility] November 02, 2023 11:30 AM AMBULATORY - MEDICINE [facility] [place] [facility] November 06, 2023 02:50 PM AMBULATORY - MEDICINE [facility] [place] Nov 22, 2023 10:00 AM AMBULATORY - MEDICINE [facility] [place] Nov 27, 2023 02:00 PM AMBULATORY - MEDICINE [facility] [place] [facility] Feb 12, 2024 10:00 AM AMBULATORY - MEDICINE [facility] [place] Feb 28, 2024 01:00 PM AM[facility]UL[facility] Feb 28, 2024 01:00 PM AMBULATORY - PSYCHIATRY [facility] Mar 25, 2024 10:00 AM AMBULATORY - MEDICINE [facility] [place] Mar 25, 2024 10:30 AM AMBULATORY - MEDICINE [facility] [place] [facility] Apr 02, 2024 02:00 PM AMBULATORY - MEDICINE [facility] [place] Apr 04, 2024 02:00 PM AM[facility]ULATORY - [facility] Apr 08, 2024 01:00 PM [facility] Active, Pending, and Scheduled Orders This [...] PATH ORDER SURG PATH SPEC. UNKNOWN SP [facility] Lab Results: +/- 30 days of [...] Type Comment Oct 11, 2023 01:27 PM [facility] MICROALBUMIN CREATININE RATIO PANEL URINE Spe cimen Type: URINE No comment entered. Ordering Provider: ALLIE CUELLO Report Released Date/Time: Jul 26, 2023 10:12 AM Reporting Lab: [facility] [address] [facility] [address] Performing Lab: [address] [address] MICROALBUMIN/CREATININE RATIO 7.1 mg/g 0 -29.9 MICROALBUMIN,QUANTITATIVE 0.8 mg/dL RR U NAVAIL CREATININE URINE 113.29 mg/dL Oct 10, 2023 03:42 PM [facility] LIVER FUNCTION SERUM Specimen Type: SERUM Comment: *BASIC METABOLIC PANEL (fasting) Not Performed: Oct 10, 2023@15:51 b *HOUSEHOLD CHORES Reason: dup *LIPID PANEL FASTING Not Performed: Oct 10, 2023@15:51 by [id number] *HOUSEHOLD CHORES Reason: dup Ordering Provider: TOÑO PETER Report Released Date/Time: Jun 05, 2023 11:22 AM Reporting Lab: [address] [address] Performing Lab: [address] [address] PROTEIN,TOTAL 6.0 g/dL 6.0-8.3 ALBUMIN 4.2 g/dL 3.5-5.0 ALKALINE PHOSPHATASE 89 U/L 40-150 AST 29 U/L 5-34 ALT 29 U/L BILIRUBIN, TOTAL 1.3 mg/dL H 0.2-1.2 BILIRUBIN, DIRECT 0.5 mg/dL 0-0.5 Oct 10, 2023 03:41 PM [facility] TESTOSTERONE, TOTAL (WHV) SERUM Specimen Type : SERUM No comment entered. Ordering Provider: ALLIE CUELLO Report Released Date/Time: Jul 26, 2023 10:12 AM Reporting Lab: [address] [address] Performing Lab: [address] [address] TESTOSTERONE, TOTAL (WHV) 755.20 ng/dL 2 20.00-892.00 Oct 10, 2023 03:41 PM [facility] PSA SERUM Specimen Type: SERUM No comment entered. Ordering Provider: ALLIE CUELLO Report Released Date/Time: Jul 26, 2023 10:12 AM Reporting Lab: [address] [address] Performing Lab: [address] [address] PSA 4.74 ng/mL H 0.00-4.00 Oct 10, 2023 03:41 PM [facility] HEMOGLOBIN A1C PANEL BLOOD Specimen Type: [...] Jul 26, 2023 10:12 AM Reporting Lab: [facility] [address] [facility] [address] Performing Lab: [facility] [address] [address] HEMOGLOBIN A1C 6.7 H 4.0-5.6 Oct 10, 2023 03:41 PM [facility] CBC BLOOD Specimen Type: BLOOD No comment entered. Ordering Provider: ALLIE CUELLO Report Released Date/Time: Jul 26, 2023 10:12 AM Reporting Lab: [facility] [address] [facility] [address] Performing Lab: [facility] [address] WBC 5.42 10*3/uL 4.50-11.00 RBC 4.87 10*6/uL 4.23-5.66 HGB 12.5 g/dL L 12.8-17 HCT 39.4 39.2-50.4 MCV 80.9 fL L 82-99 MCHC 31.7 g/dL 30.8-35.1 PLT 123 10*3/uL L 140-360 RDW-CV 14.7 12.0-16.0 MCH 25.7 pg L 26.2-32.6 Oct 10, 2023 03:41 PM [facility] LIPID PANEL FASTING SERUM Specimen Type: SERU M No comment entered. Ordering Provider: ALLIE CUELLO Report Released Date/Time: Jul 26, 2023 10:12 AM Reporting Lab: [facility] [address] [address] Performing Lab: [facility] [address] CHOLESTEROL 96 mg/dL TRIGLYCERIDE 101 mg/dL 0-150 LDL calculated 44 mg/dL 0-129 CHOL/HDL 3.0 HDL CHOLESTEROL 32 mg/dL L 40-60 Oct 10, 2023 03:41 PM [facility] CALCIUM SERUM Specimen Type: SERUM No comment entered. Ordering Provider: ALLIE CUELLO Report Released Date/Time: Oct 10, 2023 07:35 AM Reporting Lab: [address] [address] Performing Lab: [address] [address] CALCIUM 9.1 mg/dL 8.5-10.2 Oct 10, 2023 03:41 PM [facility] VITAMIN D (25-OH) SERUM Specimen Type: SERUM No comment entered. Ordering Provider: ALLIE CUELLO Report Released Date/Time: Oct 10, 2023 07:35 AM Reporting Lab: [address] [address] Performing Lab: [address] [address] VITAMIN D (25-OH) 41 ng/mL 20-50 Oct 10, 2023 03:41 PM [facility] BASIC METABOLIC PANEL (fasting) SERUM Specime n Type: SERUM No comment entered. Ordering Provider: ALLIE CUELLO Report Released Date/Time: Jul 26, 2023 10:12 AM Reporting Lab: [address] [address] Performing Lab: [address] [address] UREA NITROGEN 22 mg/dL 7-25 GLUCOSE 172 [...] 87 118/74 18 97 4 184 31 [facility] Social History: Smoking Status (Most current) [...] Date/Time Current Smoking Status Comment [facility] Jun 05, 2023 11:00 AM VA-TOBACCO FORMER USER [place] [facility] [place] [facility] Tobacco Use History This section includes a history of the smoking, or tobacco-related health factors, that were collected on or before the date of the Encounter. The data comes from the [place] facility where the Encounter took place. Date/Time Smoking Status/Tobac co Use Comment Facility Jun 05, 2023 11:00 AM VA-TOBACCO QUIT 15 YRS OR MORE [facility] Jun 06, 2022 01:00 PM VA-TOBACCO FORMER USER [facility] [place] [facility] Jun 06, 2022 01:00 PM VA-TOBACCO QUIT 15 YRS OR MORE [facility] [place] Jun 30, 2021 02:37 PM VA-TOBACCO FORMER USER [facility] Jun 30, 2021 02:37 PM VA-TOBACCO QUIT 5 TO < 15 YRS [facility] [place] [facility] May 22, 2020 03:30 PM VA-TOBACCO NEVER USED [facility] [place] [facility] May 08, [...] 31, 2004 01:02 PM HISTORY OF SMOKING [facility] Jun 04, 2003 07:57 AM HISTORY OF SMOKING [facility] Jun 03, 2002 01:11 PM HISTORY OF SMOKING [facility] Jun 03, 2002 01:11 PM QUIT TOBACCO USE > 7 YEARS AGO [facility] Advance Directives: All historical and current [...] Jun 02, 2023 ADVANCE DIRECTIVE JENNIFER QUIROS [facility] Pathology Reports: +/- 30 days of the [...] COSIGNER: URGENCY: STATUS: COMPLETED $APHDR Reporting Lab: [facility] [CLIA# [id number]] [address] [place] [address] - - - - - - - [...] - - - PATHOLOGY REPORT [facility] 174 - - - - [...] - - - - - Gross description: [facility] 24 3218;A;1;Nisa SHEPHERD This is a [facility] case number SPATH [id number]. Received [...] lateral and deep tissue margins. CPT codes 18437q4 /es/ LESTER ANDERSON MD Board Certified Dermatopathologist Signed Oct 12, 2023@10:54 Performing Laboratory: Surgical Pathology Report Performed By: [facility] [CLIA# [id number]] [address] [place] [phone] $FTR - - - - - - [...] - - BEBO SHEPHERD STANDARD FORM 515 ID:[id number] SEX:M :1940 AGE: 83 LOC:CWM/NO/CVT/DERMATOLOGY/N P PCP: RUBY Long /thomas/ LESTER ANDERSON MD Board Certified Dermatopathologist Signed: 10/12/2023 10:54 LESTER ANDERSON MD [facility] Encounter Notes: All associated encounter notes This section contains the clinical notes associated to the Encounter. Date/Time Encounter Note(s) Provider Source Oct 09, 2023 10:25 AM PHYSICIAN GALVANIZER NOTE: LOCAL TITLE: PA NOTE STANDARD TITLE: PHYSICIAN GALVANIZER NOTE DATE OF NOTE: OCT 09, 2023@10:25 ENTRY DATE: OCT 09, 2023@10:25:17 AUTHOR: TOÑO PETER EXP COSIGNER: URGENCY: STATUS: COMPLETED RUBY NOTE Has ADDENDA CC/HPI/A/P: 83 year old MALE here in follow-up for; He reports some blood on his dressing 2 days ago from right femoral access for TVAR performed at [facility] 6 days ago. 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 Rosacea 17. Hypertension (SNOMED CT 61265766) 18. Spinal Stenosis * 19. Hyperlipidemia (SNOMED CT 95655626) 20. Osteoarthritis * 21. Lower Back Pain * 22. Vertigo 23. Diabetes mellitus type 2 (SNOMED CT 50873032) 24. Gastroesophageal Reflux Disorder SERVICE CONNECTED % [...] the past few months, how often did [place]/Caregiver report having blood sugar low enough to FEAR PASSING-OUT? NONE - No fear of fainting. Hypoglycemic screen clinical decision: No change in glycemic management at this time. Comment: I sometimes get a bit low, snack' He asks about hydroxychloriquine, 90 day supply (last refill) done in April. I find his 02/02/2023 rheumatology note in [place], in which the DR stated 'continue'.... Please check with [facility], have them fax an rx to pharmacy if they want him on this and obtain their more recent notes. /thomas/ Toño Peter PA-C STAFF PHYSICIAN GALVANIZER Signed: 10/09/2023 10:42 Receipt Acknowledged By: 10/09/2023 15:53 /thomas/ VIJAYA KENDALL RN REGISTERED NURSE 10/09/2023 ADDENDUM STATUS: COMPLETED requested /thomas/ VIJAYA KENDALL RN REGISTERED NURSE Signed: 10/09/2023 15:53 TOÑO PETER [facility]
--- OUTSIDE RECORDS SUMMARY | 2024-10-01 11:28 | XMS_ITS | Encounter Summary ---
Author Organization [employer] Address [address] [place] [address] Care Team Providers Care Program Support Clerk Name Role Phone Jamilah Bueno Primary Care Provider [phone] Encounter Details Date Type Department Care Team (Late st Contact Info) Description 07/18/2024 Lab Requisition [facility] - Main Lab [address] [place] [address] Trina Brock MD [address] [place] [address] Benign prostatic hyperplasia without lower urinary tract symptoms; Atherosclerotic heart disease of [place] coronary artery without angina pectoris; Occlusion and stenosis of left vertebral artery; [facility] (current) use of anticoagulants; Type 2 diabetes mellitus without complications (CMS/HCC V24, CMS/HCC V28) Social History Tobacco Use Types Packs/Day [...] Description 10/30/2024 1:30 PM EDT Ancillary Procedure [facility] Cardiology [facility] [address] [place] [phone] 11/04/2024 3:40 PM EDT Office Visit [facility] Cardiology [facility] [address] [place] [phone] Goldy Butler NP [address] [place] [address] [address] [place], [place] [phone] 02/24/2025 11:10 AM EDT Office Visit [facility] Cardiology 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 Type 2 diabetes mellitus without complications (CMS/HCC) documented in this encounter Results * (ABNORMAL) Basic metabolic panel (07/18/2024 6:05 AM EST) Sodium 141 133 - 145 mmol/L LAB CHEMISTRY METHOD 07/18/2024 8:06 AM EST [facility] Potassium 3.4(L) 3.5 - 5.5 mmol/L LAB CHEMISTRY METHOD 07/18/2024 8:06 AM EST [facility] Chloride 107 96 - 110 mmol/L LAB CHEMISTRY METHOD 07/18/2024 8:06 AM [facility] CO2 31 21 - 32 mmol/L LAB CHEMISTRY METHOD 07/18/2024 8:06 AM [facility] Anion Gap 3 3 - 11 LAB CHEMISTRY METHOD 07/18/2024 8:06 AM [facility] Glucose 143(H) 70 - 100 mg/dL LAB CHEMISTRY METHOD 07/18/2024 8:06 AM [facility] BUN 8 5 - 25 mg/dL LAB CHEMISTRY METHOD 07/18/2024 8:06 AM [facility] Creatinine 0.66(L) 0.70 - 1.30 mg/dL LAB CHEMISTRY METHOD 07/18/2024 8:06 AM [facility] eGFR 91 >=60 mL/min/1. 73m2 LAB CHEMISTRY METHOD 07/18/2024 8:06 AM [facility] Comment:Calculation based on the??Chronic Kidney Disease Epidemiology Collaboration (CKD-EPI) equation refit??without adjustment for race. BUN/Creatinine Ratio 12.1 LAB CHEMISTRY METHOD 07/18/2024 8:06 AM [facility] Calcium 8.3(L) 8.5 - 10.5 mg/dL LAB CHEMISTRY METHOD 07/18/2024 8:06 AM [facility] Blood Venous blood specimen / Unknown Venipuncture / Unknown 07/18/2024 6:05 AM EST 07/18/2024 6:37 AM EST us Trina Brock MD LAB BLOOD ORDERABLES Fin al Result [facility] [address] [place] [address], * (ABNORMAL) Complete blood count (07/18/2024 6:05 AM EST) WBC 2.8(L) 4.8 - 10.8 K/mcL LAB HEMETOLOGY METHOD 07/18/2024 8:35 AM [facility] RBC 3.10(L) 4.50 - 5.50 M/mcL LAB HEMETOLOGY METHOD 07/18/2024 8:35 AM [facility] Hemoglobin 9.6(L) 13.5 - 17.5 g/dL LAB HEMETOLOGY METHOD 07/18/2024 8:35 AM [facility] Hematocrit 29.9(L) 42.0 - 54.0 % LAB HEMETOLOGY METHOD 07/18/2024 8:35 AM [facility] MCV 96.8 79.0 - 98.0 FL LAB HEMETOLOGY METHOD 07/18/2024 8:35 AM [facility] MCH 31.1 27.0 - 32.0 pcg LAB HEMETOLOGY METHOD 07/18/2024 8:35 AM [facility] MCHC 32.1 32.0 - 37.0 g/dL LAB HEMETOLOGY METHOD 07/18/2024 8:35 AM [facility] RDW 16.1(H) 11.0 - 15.0 % LAB HEMETOLOGY METHOD 07/18/2024 8:35 AM [facility] Platelets 83(L) 130 - 400 K/mcL LAB HEMETOLOGY METHOD 07/18/2024 8:35 AM [facility] Comment:previously verified by slide MPV 9.4 7.0 - 11.0 FL LAB HEMETOLOGY METHOD 07/18/2024 8:35 AM [facility] NRBC 0.0 <1.0 % LAB HEMETOLOGY METHOD 07/18/2024 8:35 AM [facility] NRBC Absolute 0.00 <0.10 K/[facility] LAB HEMETOLOGY METHOD 07/18/2024 8:35 AM EST [facility] Blood Venous blood specimen / Unknown Venipuncture / Unknown 07/18/2024 6:05 AM EST 07/18/2024 6:37 AM EST us Trina Brock MD LAB BLOOD ORDERABLES Fin al Result [facility] [address] [place] [address], documented in this encounter Visit Diagnoses Diagnosis Benign prostatic hyperplasia without lower urinary tract symptoms 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
--- OUTSIDE RECORDS SUMMARY | 2024-10-01 11:28 | XMS_ITS | Encounter Summary ---
Author Name [facility] Address [address] [place] [id number] Care Team Providers Care Infant Nanny Name Role Phone TOÑO CAI Primary Care [...] O MEDEX BRONZ E Mar 19, 2004 [id number] HOLLIE SHEPHERD PATIENT [place] MED[place] SUPPLEMEN MASTER MEDEX BRONZ E Mar 19, 2004 [id number] [phone] HOLLIE SHEPHERD PATIENT [place] SUPPLEMEN MASTER MEDEX BRONZ E Mar 19, 2004 [id number] HOLLIE SHEPHERD PATIENT BCBS [facility] MEDICARE SUPPLEMEN MASTER PSUED O MEDEX BRONZ E Mar 19, 2004 [id number] [phone] HOLLIE SHEPHERD PATIENT MEDICARE (WNR) MEDICARE (M) PART B Mar 19, 2004 PART B [id number] CORA,HOLLIE ALD PATIENT MEDICARE (WNR) MEDICARE (M) PART B Mar 19, 2004 PART B [id number] HOLLIE SHEPHERD ALD PATIENT MEDICARE (WNR) MEDICARE (M) PART B Mar 19, 2004 PART B [id number] [phone] CORAHOLLIE SILVA ALD PATIENT MEDICARE (WNR) MEDICARE (M) PART A Feb 17, 2003 PART A [id number] CORAHOLLIE SILVA ALD PATIENT MEDICARE (WNR) MEDICARE (M) PART A Feb 17, 2003 PART A [id number] CORAHOLLIE SILVA ALD PATIENT MEDICARE (WNR) MEDICARE (M) PART A Feb 17, 2003 PART A [id number] [phone] HOLLIE SHEPHERD PATIENT MEDICARE (WNR) MEDICARE (M) PART A Feb 17, 2003 PART A [id number] HOLLIE SHEPHERD PATIENT MEDICARE (WNR) MEDICARE (M) PART B Feb 17, 2003 PART B [id number] HOLLIE SHEPHERD PATIENT MEDICARE (WNR) MEDICARE (M) PART A Feb 17, 2003 PART A [id number] HOLLIE SHEPHERD PATIENT MEDICARE (WNR) MEDICARE (M) PART B Feb 17, 2003 PART B [id number] HOLLIE SHEPHERD PATIENT Selected Encounter This [...] 20 appointments. The data comes from all [place] treatment facilities. Appointment Date/Time Appointment Type Appointme nt Facility Name May 02, 2024 10:00 AM [facility]BUL[facility] [place] [facility] May 08, 2024 10:00 AM AMBULATORY - [facility] MEDICIN [facility] [place] [facility] May 29, 2024 11:30 AM [facility]INE [facility] [place] [facility] Jun 05, 2024 12:00 PM AM[place] [facility] Jun 05, 2024 12:00 PM AMBULATORY - PS[facility]CHIATRY [facility] [place] [facility] Jun 17, 2024 10:30 AM [facility] [place] [facility] Jun 17, 2024 10:31 AM [facility]ICINE [facility] [place] [facility] Jun 17, 2024 11:45 AM AMBULATORY - NONE [facility] [place] [facility] Jun 21, 2024 11:00 AM [facility] [place] [facility] Jul 05, 2024 10:00 AM [facility]INE [facility] [place] [facility] Jul 10, 2024 08:00 AM [facility]ICINE [facility] [place] [facility] Jul 10, 2024 01:30 PM [facility]ICINE [facility] [place] [facility] Aug 01, 2024 11:00 AM AM[facility] [place] [facility] Aug 06, 2024 10:00 AM AM[facility] [place] [facility] Aug 16, 2024 02:00 PM AM[facility]AT[facility]ICINE [facility] [place] [facility] Aug 20, 2024 09:00 AM AM[facility]ATORY [facility]ICINE [facility] [place] [facility] Aug 22, 2024 11:00 AM AM[facility]AT[facility]ICINE [facility] [place] [facility] Sep 27, 2024 11:00 AM [facility] [place] [facility] Oct 03, 2024 02:00 PM [facility] Oct 08, 2024 11:00 AM AMBULATORY - NONE [facility] Lab Results: +/- 30 days of the [...] Type Comment May 08, 2024 11:24 AM [facility] TESTOSTERONE, TOTAL (WHV) SERUM Specimen Type : SERUM No comment entered. Ordering Provider: SILVIA CAI Report Released Date/Time: Aug 11, 2023 11:52 AM Reporting Lab: [address] [address] Performing Lab: [address] [address] TESTOSTERONE, TOTAL (WHV) 44.33 ng/dL L 22 0.00-892.00 May 08, 2024 11:24 AM [facility] BASIC METABOLIC PANEL (fasting) SERUM Specime n Type: SERUM No comment entered. Ordering Provider: TOÑO CAI Report Released Date/Time: Aug 11, 2023 11:52 AM Reporting Lab: [address] [address] Performing Lab: [address] [address] UREA NITROGEN 19 mg/dL 7-25 GLUCOSE 216 mg/dL H 65-100 SODIUM 142 mmol/L 135-145 POTASSIUM 3.5 mmol/L 3.5-5.0 CHLORIDE 107 mmol/L 100-110 CO2 25 meq/L 20-30 CREATININE, Serum 0.84 mg/dL 0.50-1.40 eGFR(CKD-EPI 2020) 85 mL/min >60 May 08, 2024 11:24 AM [facility] CBC BLOOD Specimen Type: BLOOD No comment entered. Ordering Provider: TOÑO CAI Report Released Date/Time: Aug 11, 2023 11:52 AM Reporting Lab: [address] [address] Performing Lab: [address] [address] WBC 4.08 10*3/uL L 4.50-11.00 RBC 4.53 [...] Aug 11, 2023 11:52 AM Reporting Lab: [address] [address] Performing Lab: [address] [address] PROTEIN,TOTAL 5.5 g/dL L 6.0-8.3 ALBUMIN 3.6 g/dL 3.5-5.0 ALKALINE PHOSPHATASE 71 U/L 40-150 AST 20 U/L 5-34 ALT 24 U/L BILIRUBIN, TOTAL 1.1 mg/dL 0.2-1.2 May 08, 2024 11:24 AM [facility] LIPID PANEL FASTING SERUM Specimen Type: SERU M No comment entered. Ordering Provider: TOÑO CAI Report Released Date/Time: Aug 11, 2023 11:52 AM Reporting Lab: [address] [address] Performing Lab: [address] [address] CHOLESTEROL 142 mg/dL TRIGLYCERIDE 179 mg/dL H 0-150 LDL calculated 64 mg/dL 0-129 CHOL/HDL 3.4 HDL CHOLESTEROL 42 mg/dL 40-60 May 08, 2024 11:24 AM [facility] CBC AND DIFF (AUTO) BLOOD Specimen Type: BLOO D No comment entered. Ordering Provider: TOÑO CAI Report Released Date/Time: Aug 11, 2023 11:52 AM Reporting Lab: [facility] [address] [facility] [address] Performing Lab: [facility] [address] [facility] [address] WBC 4.08 10*3/uL L 4.50-11.00 RBC 4.53 [...] 10*3/uL 0.00-0.00 May 08, 2024 11:23 AM [facility] [place] [facility] OSMOLALITY (SERUM) SERUM Specimen Type: SERUM No comment entered. Ordering Provider: ALLIE CUELLO Report Released Date/Time: Nov 27, 2023 07:39 PM Reporting Lab: [facility] [place] [facility] [address] [address] Performing Lab: [facility] [place] [facility] [address] [facility] [address] OSMOLALITY (SERUM) 299 280-300 May 08, 2024 11:23 AM [facility] [place] [facility] CALCIUM SERUM Specimen Type: SERUM Comment: *GLUCOSE Not Performed: May 08, 2024@11:36 [place] [id number] *[facility] Reason: Duplicate *UREA NITROGEN Not Performed: May 08, 2024@11:36 by [id number] *[facility] Reason: Duplicate *CREATININE (eGFR 2020) Not Performed: May 08, 2024@11:36 by [id number] *[facility] Reason: Duplicate *SODIUM Not Performed: May 08, 2024@11:36 by [id number] *[facility] Reason: Duplicate *CHLORIDE Not Performed: May 08, 2024@11:36 by [id number] *[facility] Reason: Duplicate *CO2 Not Performed: May 08, 2024@11:36 by [id number] *[facility] Reason: Duplicate *POTASSIUM Not Performed: May 08, 2024@11:36 by [id number] *[facility] Reason: Duplicate Ordering Provider: ALLIE CUELLO Report Released Date/Time: Nov 27, 2023 07:39 PM Reporting Lab: [facility] [place] [facility] [address] [facility] [address] Performing Lab: [facility] [place] [facility] [address] [address] CALCIUM 8.5 mg/dL 8.5-10.2 May 08, 2024 11:23 AM [facility] VITAMIN D (25-OH) SERUM Specimen Type: SERUM No comment entered. Ordering Provider: ALLIE CUELLO Report Released Date/Time: Nov 27, 2023 07:39 PM Reporting Lab: [facility] [place] [facility] [address] [facility] [address] Performing Lab: [facility] [place] [facility] [address] [facility] [address] VITAMIN D (25-OH) 46 ng/mL 20-50 Social [...] 05, 2023 11:00 AM VA-TOBACCO FORMER USER [facility] [place] [facility] Tobacco Use History This section includes a history of the smoking, or tobacco-related health factors, that were collected on or before the date of the Encounter. The data comes from the [place] facility where the Encounter took place. Date/Time Smoking Status/Tobac co Use Comment [facility] Jun 05, 2023 11:00 AM VA-TOBACCO QUIT 15 YRS OR MORE [facility] [place] [facility] Jun 06, 2022 01:00 PM VA-TOBACCO FORMER USER [facility] [place] [facility] Jun 06, 2022 01:00 PM VA-TOBACCO QUIT 15 YRS OR MORE [facility] [place] [facility] Jun 30, 2021 02:37 PM VA-TOBACCO FORMER USER [facility] [place] [facility] Jun 30, 2021 02:37 PM VA-TOBACCO QUIT 5 TO < 15 YRS [facility] [place] [facility] May 22, 2020 03:30 PM VA-TOBACCO NEVER USED [facility] [place] [facility] May 08, 2018 02:03 PM VA-TOBACCO FORMER USER [facility] [place] [facility] May 08, 2018 02:03 PM VA-TOBACCO QUIT 15 YRS OR MORE [facility] [place] [facility] November 10, 2017 02:33 PM QUIT TOBACCO USE > 7 YEARS AGO [facility] [place] [facility] October 21, 2016 01:55 PM QUIT TOBACCO USE > 7 YEARS AGO [facility] [place] [facility] Sep 18, 2015 11:24 AM QUIT TOBACCO USE > 7 YEARS AGO stopped 50 years ago [facility] [place] [facility] May 19, 2005 08:01 AM HISTORY OF SMOKING [facility] May 31, 2004 01:02 PM HISTORY OF [...] Jun 02, 2023 ADVANCE DIRECTIVE JENNIFER QUIROS [facility] Radiology Reports: +/- 30 days [...] Source Apr 02, 2024 02:24 PM SHOULDER,COMPLETE(RIGHT): CORABEBO R [id number] -1940 M Ex Date: APR 02, 2024@14:24 Req Phys: TOÑO CAI Loc: CWM/NO/PACT 3 (Req'g Loc) [facility] Loc: [facility] 1 Service: [place] [address] (Case 50 COMPLETE) SHOULDER,COMPLETE(RIGHT) (RAD Detailed) CPT:40725 Reason for Study: lateral pain after a fall last week. Clinical History: Report Status: Verified Date Reported: APR 02, 2024 Date Verified: APR 02, 2024 Rrts E-Sig:/ES/NAPOLEON ELLIOTT JR Report: Study: AP internally [...] Primary Interpreting Staff: NAPOLEON ELLIOTT JR, Radiologist (Rrts) /NAPOLEON SCHMITZ JR [facility] Encounter Notes: All associated encounter notes This section contains the clinical notes associated to the Encounter. Date/Time Encounter Note(s) Provider Source Apr 16, 2024 12:53 PM PHYSICAL THERAPY NOTE: LOCAL TITLE: PHYSICAL THERAPY STANDARD TITLE: PHYSICAL THERAPY NOTE DATE OF NOTE: APR 16, 2024@12:53 ENTRY DATE: APR 16, 2024@12:53:30 AUTHOR: DENISE FORD EXP COSIGNER: URGENCY: STATUS: COMPLETED Initial Evaluation date: Mar Treatment #: 1 Treatment time: 30 mins Diagnosis: Dorsalgia, unspecified(ICD-10-CM M54.9) Provider: Ned SOTO Treatment Precautions: Patient identified by full name [...] intact pre/post SELF CARE/EDUCATION: MINUTES: Access Code: [email or web address] URL: [email or web address] Date: 04/16/2024 Prepared by: GILDA [employer] Exercises - Seated Transversus Abdominis Bracing - [...] [x]Self-care strategies [x]Modalities(PRN): [x]Heat/Ice [NO]Mechanical traction [x]Biofreeze /es/ ROBYN SEXTON LICENSE RENAL NURSE Signed: 04/16/2024 13:00 DENISE FORD [facility] [place] [facility]
--- OUTSIDE RECORDS SUMMARY | 2024-10-01 11:28 | XMS_ITS | Encounter Summary ---
Author Name [facility] [place] [facility] [place] [facility] [facility] [place] Address [address] [place] [id number] Care Team Providers Care Automatic Machines Supervisor Name Role Phone TOÑO CAI Primary [...] O MEDEX BRONZ E Mar 19, 2004 [id number] HOLLIE SHEPHERD PATIENT [place] SUPPLEMEN MASTER MEDEX BRONZ E Mar 19, 2004 [id number] [phone] HOLLIE SHEPHERD [place] SUPPLEMEN MASTER MEDEX BRONZ E Mar 19, 2004 [id number] [phone] HOLLIE SHEPHERD PATIENT BCBS [facility] MEDICARE SUPPLEMEN MASTER PSUED O MEDEX BRONZ E Mar 19, 2004 [id number] HOLLIE SHEPHERD PATIENT MEDICARE (WNR) MEDICARE (M) PART B Mar 19, 2004 PART B [id number] HOLLIE SHEPHERD PATIENT MEDICARE (WNR) MEDICARE (M) PART B Mar 19, 2004 PART B [id number] HOLLIE SHEPHERD ALD PATIENT MEDICARE (WNR) MEDICARE (M) PART B Mar 19, 2004 PART B [id number] HOLLIE SHEPHERD ALD PATIENT MEDICARE (WNR) MEDICARE (M) PART A Feb 17, 2003 PART A [id number] [phone] CORAHOLLIE SILVA ALD PATIENT MEDICARE (WNR) MEDICARE (M) PART A Feb 17, 2003 PART A [id number] [phone] CORAHOLLIE SILVA ALD PATIENT MEDICARE (WNR) MEDICARE (M) PART A Feb 17, 2003 PART A [id number] HOLLIE SHEPHERD PATIENT MEDICARE (WNR) MEDICARE (M) PART A Feb 17, 2003 PART A [id number] [phone] HOLLIE SHEPHERD PATIENT MEDICARE (WNR) MEDICARE (M) PART B Feb 17, 2003 PART B [id number] HOLLIE SHEPHERD PATIENT MEDICARE (WNR) MEDICARE (M) PART A Feb 17, 2003 PART A [id number] HOLLIE SHEPHERD PATIENT MEDICARE (WNR) MEDICARE (M) PART B Feb 17, 2003 PART B [id number] HOLLIE SHEPHERD PATIENT Selected Encounter This section includes the information on record at [place] for the Encounter. Date/Time Encounter Type Encounter Description Reason Provider Source Apr 08, 2024 01:00 PM PROSTHETIC TRAING 1ST ENC PHYSICAL THERAPY ICD-10-CM M54.9 Dorsalgia, unspecified NAVJOT SOTO E Encounter Template Text not used by [place] Assessments - Encounter Diagnoses This section includes the primary and secondary diagnoses documented for the Encounter. Date/Time Primary/Secondary Diagnosis Diagnosis Name Provider Source Apr 19, 2024 10:12 AM PRIMARY Dorsalgia, unspecified NAVJOT SOTO [place] [facility] Plan of Treatment: [...] 20 appointments. The data comes from all [facility] treatment [facility]. Appointment Date/Time Appointment Type Appointme nt Facility Name Apr 12, 2024 09:45 AM AMBULATORY [facility]ICINE [facility] [place] [facility] Apr 16, 2024 10:00 AM AMBULATORY - REHAB MEDICIN E [facility] [place] [facility] May 02, 2024 10:00 AM AMBULATORY - REHAB MEDICIN E [facility] [place] [facility] May 08, 2024 10:00 AM AMBULATORY - REHAB MEDICIN E [facility] [place] [facility] May 29, 2024 11:30 AM AMBULATORY [facility] MEDICINE [facility] [place] [facility] Jun 05, 2024 12:00 PM [place] [facility] Jun 05, 2024 12:00 PM AMBULATORY - PSYCHIATRY [facility] [place] [facility] Jun 17, 2024 10:30 AM AMBULATORY [facility] MEDICINE [facility] [place] [facility] Jun 17, 2024 10:31 AM AMBULATORY [facility] MEDICINE [facility] [place] [facility] Jun 17, 2024 11:45 AM AMBULATORY - NONE [facility] [place] [facility] Jun 21, 2024 11:00 AM AM[facility]ULATORY [facility]ICINE [facility] [place] [facility] Jul 05, 2024 10:00 AM AM[facility]ULATORY [facility] MEDICINE [facility] [place] [facility] Jul 10, 2024 08:00 AM AM[facility]UL[facility]ORY [facility] MEDICINE [facility] [place] [facility] Jul 10, 2024 01:30 PM AM[facility]ULATORY [facility] MEDICINE [facility] [place] [facility] Aug 01, 2024 11:00 AM AMBULATORY [facility] MEDICINE [facility] [place] [facility] Aug 06, 2024 10:00 AM AM[facility]ULATORY [facility] MEDICINE [facility] [place] [facility] Aug 16, 2024 02:00 PM AMBULATORY [facility] MEDICINE [facility] [place] [facility] Aug 20, 2024 09:00 AM [facility] Aug 22, 2024 11:00 AM AMBULATORY - MEDICINE [facility] Sep 27, 2024 11:00 AM AMBULATORY - PSYCHIATRY [facility] Lab Results: +/- 30 days [...] Type Comment May 08, 2024 11:24 AM [facility] TESTOSTERONE, TOTAL (WHV) SERUM Specimen Type : SERUM No comment entered. Ordering Provider: SILVIA CAI Report Released Date/Time: Aug 11, 2023 11:52 AM Reporting Lab: [address] [address] Performing Lab: [address] [address] TESTOSTERONE, TOTAL (V) 44.33 ng/dL L 22 0.00-892.00 May 08, 2024 11:24 AM [facility] BASIC METABOLIC PANEL (fasting) SERUM Specime n Type: SERUM No comment entered. Ordering Provider: TOÑO CAI Report Released Date/Time: Aug 11, 2023 11:52 AM Reporting Lab: [address] [address] Performing Lab: [address] [address] UREA NITROGEN 19 mg/dL 7-25 GLUCOSE 216 mg/dL H 65-100 SODIUM 142 mmol/L 135-145 POTASSIUM 3.5 mmol/L 3.5-5.0 CHLORIDE 107 mmol/L 100-110 CO2 25 meq/L 20-30 CREATININE, Serum 0.84 mg/dL 0.50-1.40 eGFR(CKD-EPI 2020) 85 mL/min >60 May 08, 2024 11:24 AM [facility] CBC BLOOD Specimen Type: BLOOD No comment entered. Ordering Provider: TOÑO CAI Report Released Date/Time: Aug 11, 2023 11:52 AM Reporting Lab: [address] [address] Performing Lab: [address] [address] WBC 4.08 10*3/uL L 4.50-11.00 RBC 4.53 10*6/uL 4.23-5.66 HGB 13.1 g/dL 12.8-17 HCT 39.9 39.2-50.4 MCV 88.1 fL 82-99 MCHC 32.8 g/dL 30.8-35.1 PLT 130 10*3/uL L 140-360 RDW-CV 14.5 12.0-16.0 MCH 28.9 pg 26.2-32.6 May 08, 2024 11:24 AM [facility] LIVER FUNCTION SERUM Specimen Type: SERUM No comment entered. Ordering Provider: TOÑO CAI Report Released Date/Time: Aug 11, 2023 11:52 AM Reporting Lab: [address] [address] Performing Lab: [address] [address] PROTEIN,TOTAL 5.5 g/dL L 6.0-8.3 ALBUMIN 3.6 g/dL 3.5-5.0 ALKALINE PHOSPHATASE 71 U/L 40-150 AST 20 U/L 5-34 ALT 24 U/L BILIRUBIN, TOTAL 1.1 mg/dL 0.2-1.2 May 08, 2024 11:24 AM [facility] LIPID PANEL FASTING SERUM Specimen Type: SERU M No comment entered. Ordering Provider: TOÑO CAI Report Released Date/Time: Aug 11, 2023 11:52 AM Reporting Lab: [address] [address] Performing Lab: [address] [place] [address] CHOLESTEROL 142 mg/dL TRIGLYCERIDE 179 mg/dL H 0-150 LDL calculated 64 mg/dL 0-129 CHOL/HDL 3.4 HDL CHOLESTEROL 42 mg/dL 40-60 May 08, 2024 11:24 AM [facility] CBC AND DIFF (AUTO) BLOOD Specimen Type: BLOO D No comment entered. Ordering Provider: TOÑO CAI Report Released Date/Time: Aug 11, 2023 11:52 AM Reporting Lab: [facility] [address] [facility] [address] Performing Lab: [facility] [address] [facility] [address] WBC 4.08 10*3/uL L 4.50-11.00 RBC 4.53 [...] 10*3/uL 0.00-0.00 May 08, 2024 11:23 AM [facility] OSMOLALITY (SERUM) SERUM Specimen Type: SERUM No comment entered. Ordering Provider: ALLIE CUELLO Report Released Date/Time: Nov 27, 2023 07:39 PM Reporting [facility]: [facility] [place] [facility] [address] [facility] [address] Performing Lab: [facility] [address] [facility] [address] OSMOLALITY (SERUM) [phone] May 08, 2024 11:23 AM [facility] CALCIUM SERUM Specimen Type: SERUM Comment: *GLUCOSE Not Performed: May 08, 2024@11:36 by [id number] *REAL ESTATE REPRESENTATIVE Reason: Duplicate *UREA NITROGEN Not Performed: May 08, 2024@11:36 by [id number] *REAL ESTATE REPRESENTATIVE Reason: Duplicate *CREATININE (eGFR 2020) Not Performed: May 08, 2024@11:36 by [id number] *REAL ESTATE REPRESENTATIVE Reason: Duplicate *SODIUM Not Performed: May 08, 2024@11:36 by [id number] *REAL ESTATE REPRESENTATIVE Reason: Duplicate *CHLORIDE Not Performed: May 08, 2024@11:36 by [id number] *REAL ESTATE REPRESENTATIVE Reason: Duplicate *CO2 Not Performed: May 08, 2024@11:36 by [id number] *REAL ESTATE REPRESENTATIVE Reason: Duplicate *POTASSIUM Not Performed: May 08, 2024@11:36 by [id number] *REAL ESTATE REPRESENTATIVE Reason: Duplicate Ordering Provider: ALLIE CUELLO Report Released Date/Time: Nov 27, 2023 07:39 PM Reporting Lab: [facility] [place] [facility] [address] [facility] [address] Performing Lab: [facility] [address] [facility] [address] CALCIUM 8.5 mg/dL 8.5-10.2 May 08, 2024 11:23 AM [facility] VITAMIN D (25-OH) SERUM Specimen Type: SERUM No comment entered. Ordering Provider: ALLIE CUELLO Report Released Date/Time: Nov 27, 2023 07:39 PM Reporting Lab[facility] [place] [facility] [address] [facility] [address] Performing Lab: [facility] [place] [facility] [address] [facility] [address] VITAMIN D (25-OH) 46 ng/mL 20-50 Social [...] 05, 2023 11:00 AM VA-TOBACCO FORMER USER [place] [facility] [place] [facility] Tobacco Use History This section includes a history of the smoking, or tobacco-related health factors, that were collected on or before the date of the Encounter. The data comes from the [place] facility where the Encounter took place. Date/Time Smoking Status/Tobac co Use Comment [facility] Jun 05, 2023 11:00 AM VA-TOBACCO QUIT 15 YRS OR MORE [facility] [place] [facility] Jun 06, 2022 01:00 PM VA-TOBACCO FORMER USER [facility] [place] [facility] Jun 06, 2022 01:00 PM VA-TOBACCO QUIT 15 YRS OR MORE [facility] [place] [facility] Jun 30, 2021 02:37 PM VA-TOBACCO FORMER USER [facility] [place] [facility] Jun 30, 2021 02:37 PM VA-TOBACCO QUIT 5 TO < 15 YRS [facility] [place] [facility] May 22, 2020 03:30 PM VA-TOBACCO NEVER USED [facility] [place] [facility] May 08, 2018 02:03 PM VA-TOBACCO FORMER USER [facility] [place] [facility] May 08, 2018 02:03 PM VA-TOBACCO QUIT 15 YRS OR MORE [facility] [place] [facility] November 10, 2017 02:33 PM QUIT TOBACCO USE > 7 YEARS AGO [facility] [place] [facility] October 21, 2016 01:55 PM QUIT TOBACCO USE > 7 YEARS AGO [facility] [place] [facility] Sep 18, 2015 11:24 AM QUIT TOBACCO USE > 7 YEARS AGO stopped 50 years ago [facility] May 19, 2005 08:01 AM HISTORY OF SMOKING [facility] May 31, 2004 01:02 PM HISTORY OF SMOKING [facility] Jun 04, 2003 07:57 AM HISTORY OF SMOKING [facility] Jun 03, 2002 01:11 PM HISTORY OF SMOKING [facility] Jun 03, 2002 01:11 PM QUIT TOBACCO USE > 7 YEARS AGO [facility] Advance Directives: All historical and [...] 02, 2023 ADVANCE DIRECTIVE JENNIFER QUIROS [facility] Radiology Reports: +/- 30 days of [...] comes from all [place] treatment facilities. Date/Time Radiology Report Provider Source Apr 02, 2024 02:24 PM SHOULDER,COMPLETE(RIGHT): BEBO SHEPHERD Nisa [id number] -1940 M Ex Date: APR 02, 2024@14:24 Req Phys: TOÑO CAI Loc: CWM/NO/PACT 3 (Req'g Loc) Im Loc: [facility] 1 Service: [place] [address] (Case 50 COMPLETE) SHOULDER,COMPLETE(RIGHT) (RAD Detailed) CPT:93739 Reason for Study: lateral pain after a fall last week. Clinical History: Report Status: Verified Date Reported: APR 02, 2024 Date Verified: APR 02, 2024 Recycling Attendant E-Sig:/ES/NAPOLEON ELLIOTT JR Report: Study: AP internally [...] Primary Interpreting Staff: NAPOLEON ELLIOTT JR, Radiologist (Recycling Attendant) /NAPOLEON SCHMITZ JR [facility] Encounter Notes: All associated [...] RA in the knees, seeing Rheumatology in [facility]. on a new medication from them, [...] the surgeries (cortizone) (going to go to [employer] [facility] to see about an [...] 200ft each way. Are you currently working? [employer]( daughter and son in law assist) [x]Part-time Current Exercise Habits: working on the property and woodworking Baseline function: [x]Independent ADL's/IADL's - Decline in ADL's/IADL's or recreation?: [x]Yes slower when pain flares. Patient's Goals: 1)bend over without so much pain. 2) Active problems - Computerized Problem List is the source for the followin. Elevated PSA 2. Aortic Valve Disorder (SCT 8981573) 3. Cerebrovascular disease 4. Chronic recurrent major depressive disorder 5. Insulin pump present 6. Hypertension 7. Family history of cancer of colon 8. Testicular hypofunction 9. Osteoporosis 10. Major depressive disorder 11. RA - Rheumatoid arthritis 12. History of colonic polyp 13. Diverticular disease of colon 14. Adjustment disorder 15. Hemorrhoids 16. Polymyalgia Rheumatica 17. Microscopic Hematuria 18. Rosacea 19. Hypertension (SNOMED CT 80015022) 20. Spinal Stenosis * 21. Hyperlipidemia (SNOMED CT 76525817) 22. Osteoarthritis * 23. Lower Back Pain * 24. Vertigo 25. Diabetes mellitus type 2 (SNOMED CT 04516774) 26. Gastroesophageal Reflux Disorder Include data from 04/09/2023 to 04/08/2024 04/08/2024 12:37 CONFIDENTIAL IMAGING REPORTS SUMMARY pg. 1 BEBO SHEPHERD [id number] : 1940 II - Imaging Impression (max [...] THERAPEUTIC EXERCISE: Instruction in therex & issued [employer] HEP:Access Code: [email or web address] URL: [email or web address] Date: 04/08/2024 Prepared by: Navjot Soto Exercises [...] issued large hot/cold pack on this date. [facility] verbalized understanding on use and care. Assessment:Patient [...] strategies [x]Modalities(PRN): [x]Heat/Ice [NO]Mechanical traction [x]Biofreeze /es/ NAVJOT SOTO PT, DPT PHYSICAL THERAPIST Signed: 04/08/2024 16:05 NAVJOT SOTO [facility] [place] [facility]
--- OUTSIDE RECORDS SUMMARY | 2024-10-01 11:28 | XMS_ITS | Continuity of Care Document ---
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 It does not include entries that were removed or entered in error. Problem Status Onset Date Problem Type Date of Resolution Comments Source Acute mesenteric ischaemia Active Condition [facility] Adjustment disorder Active Condition [facility] Aortic Valve Disorder (SCT [id number]) Active Condition Oct 09, 2023 Entered By: LUCAS CAI AM Comment: TAVR 10/03/2023 [facility]. [facility] Cerebrovascular disease Active Condition Apr 26, 2023 Entered By: ALLIE CUELLO Comment: s/p L carotid endarterectomy [facility] Chronic recurrent major depressive disorder Active Condition [facility] Diabetes mellitus type 2 (SNOMED CT 26503276) Active Condition [facility] Hyperlipidemia (SNOMED CT 02485884) Active Condition [facility] Hypertension Active Condition [facility] Hypertension (SNOMED CT 71908618) Active Condition [facility] [...] Major depressive disorder, recurrent, unspecified Active Diagnosis [facility] Diagnosis: ICD-10-CM E11.8 Type 2 diabetes mellitus with unspecified complications Active Diagnosis [facility] Diagnosis: ICD-10-CM Z96.41 Presence of insulin pump (external) (internal) Active Diagnosis [facility] Diagnosis: ICD-10-CM K45.8 Oth abdominal hernia without obstruction or gangrene Active Diagnosis [facility] Diagnosis: ICD-10-CM K55.9 Vascular disorder of intestine, unspecified Active Diagnosis [facility] Diagnosis: ICD-10-CM I10 Essential (primary) hypertension Active Diagnosis [facility] Diagnosis: ICD-10-CM R42 Dizziness and giddiness Active Diagnosis [facility] Diagnosis: ICD-10-CM 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 [facility] [facility] Diagnosis: ICD-10-CM R10.0 Acute abdomen Active Diagnosis [facility] Diagnosis: ICD-10-CM M81.0 Age-related osteoporosis w/o current pathological fracture Active Diagnosis [facility] Diagnosis: ICD-10-CM M75.41 Impingement syndrome of right shoulder Active Diagnosis [facility] Diagnosis: ICD-10-CM M54.9 Dorsalgia, unspecified Active Diagnosis [facility] Diagnosis: ICD-10-CM L57.0 Actinic keratosis Active Diagnosis [facility] Diagnosis: ICD-10-CM M75.51 Bursitis of right shoulder Active Diagnosis [facility] Diagnosis: ICD-10-CM Z46.0 Encounter for fit/adjst of spectacles and contact lenses Active Diagnosis [facility] Diagnosis: ICD-10-CM 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, right eye, intermed dry stage Active Diagnosis [facility] Diagnosis: ICD-10-CM M06.9 Rheumatoid arthritis, unspecified Active Diagnosis [facility] [facility] Diagnosis: ICD-10-CM R22.30 Localized swelling, mass and lump, unspecified upper limb Active Diagnosis [facility] Diagnosis: ICD-10-CM R60.0 Localized edema Active Diagnosis [facility] Diagnosis: ICD-10-CM S41.111A Laceration w/o foreign body of right upper arm, init encntr Active Diagnosis [facility] Diagnosis: ICD-10-CM Z04.9 Encounter for examination and observation for unsp reason Active Diagnosis [facility] Diagnosis: ICD-10-CM F33.0 Major depressive disorder, recurrent, mild Active Diagnosis [facility] Diagnosis: ICD-10-CM E29.1 Testicular hypofunction Active Diagnosis [facility] Diagnosis: ICD-10-CM Z85.828 Personal history of other malignant neoplasm of skin Active Diagnosis [facility] Diagnosis: ICD-10-CM I35.9 Nonrheumatic aortic valve disorder, unspecified Active Diagnosis [facility] Diagnosis: ICD-10-CM 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 [facility] Diagnosis: ICD-10-CM Z04.89 Encounter for examination and observation for oth reasons Active Diagnosis [facility] Diagnosis: ICD-10-CM Z23 Encounter for immunization Active Diagnosis [facility] Diagnosis: ICD-10-CM Z46.1 Encounter for fitting and adjustment of hearing aid Active Diagnosis [facility] Medications Combined list of outpatient medications from Department of Defense and Veterans Affairs facilities.Medications provided include 1) outpatient medications from the last 15 months, and 2) patient-reported medications. Medication Details Route Status Patient Instructions Prescription Expires Prescription Number Last Dispense Date Ordering Provider Order Date Order Qty Source ACETAMINOPH EN TAB TAKE BY MOUTH ONCE DAILY NEEDED ORAL ACTIVE TOÑO CAI 2012 [facility] AMLODIPINE BESYLATE 2.5MG TAB TAKE ONE TABLET BY MOUTH ONCE DAILY FOR BLOOD PRESSURE /HEART, DO NOT TAKE WITH GRAPEFRU IT JUICE ORAL ACTIVE 08/10/2025 [id number] TOÑO CAI 2024 90 [facility] ASPIRIN 81MG TAB,EC TAKE ONE TABLET BY MOUTH ONCE DAILY ORAL ACTIVE TOÑO CAI 2023 [facility] ATORVASTATI N CA 80MG TAB TAKE ONE-HALF TABLET BY MOUTH ONCE DAILY ORAL ACTIVE 02/27/2025 [id number] 5 CUELLO,AL ICE 2023 45 [facility] ATORVASTATI N CA 80MG TAB TAKE ONE-HALF TABLET BY MOUTH ONCE DAILY ORAL DISCONT INUED 04/26/2024 [id number] 4 CUELLO,AL ICE 2022 45 [facility] CALCIUM 200MG (CA CITRATE-950 MG) TAB TAKE FOUR TABLETS BY MOUTH TWICE DAILY ORAL ACTIVE 11/27/2024 [id number] 5 CUELLO,LA ICE 2023 800 [facility] CALCIUM 200MG (CA CITRATE-950 MG) TAB TAKE FOUR TABLETS BY MOUTH TWICE DAILY ORAL DISCONT INUED 04/26/2024 [id number] 4 CUELLO,LA ICE 2022 720 [facility] CHOLECALCIF DERECK 50MCG (2,000UNIT) TAB TAKE ONE TABLET BY MOUTH ONCE DAILY ORAL ACTIVE TAN [address] [facility] CITALOPRAM HYDROBROMID E 10MG TAB TAKE ONE-HALF TABLET BY MOUTH ONCE DAILY FOR DEPRESSI ON AND ANXIETY ORAL DISCONT INUED BY PROVIDE R 02/28/2025 [id number] 4 KALLIE HARPER 2023 45 [facility] CITALOPRAM HYDROBROMID E 20MG TAB TAKE ONE-HALF TABLET BY MOUTH ONCE DAILY FOR MOOD ORAL DISCONT INUED (EDIT) 10/10/2024 [id number] KALLIE HARPER 2023 45 [facility] CITALOPRAM HYDROBROMID E 20MG TAB TAKE ONE-HALF TABLET BY MOUTH ONCE DAILY FOR MOOD ORAL DISCONT INUED 09/29/2023 [id number] 4 KALLIE HARPER 2022 45 [facility] CYCLOBENZAP RINE HCL 10MG TAB TAKE ONE TABLET BY MOUTH TWICE DAILY NEEDED FOR MUSCLE SPASM ORAL ACTIVE 08/10/2025 [id number] 5 TOÑO CAI 2024 180 [facility] DENOSUMAB 60MG/ML INJ,SYRINGE ,1ML INJECT 60MG/1ML SUBCUTAN EOUSLY ONE TIME FOR OSTEOPOR OSIS SUBCUT ANEOUS 05/30/2024 [id number] 4 CEULLO,AL ICE 2023 1 [facility] DENOSUMAB 60MG/ML INJ,SYRINGE ,1ML INJECT 60MG/1ML SUBCUTAN EOUSLY ONE TIME FOR OSTEOPOR OSIS SUBCUT ANEOUS 11/17/2023 [id number] 4 CUELLO,AL ICE 2023 1 [facility] FUROSEMIDE 20MG TAB TAKE ONE TABLET BY MOUTH ONCE DAILY ORAL ACTIVE TOÑO CAI 2023 [facility] GABAPENTIN 600MG TAB TAKE ONE TABLET BY MOUTH THREE TIMES A DAY ORAL ACTIVE 11/14/2024 [id number] 5 TOÑO CAI 2024 270 [facility] GABAPENTIN 600MG TAB TAKE ONE TABLET BY MOUTH THREE TIMES A DAY ORAL DISCONT INUED 09/30/2024 [id number] 5 GAGANDEEP COOPER M 2024 270 [facility] GABAPENTIN 600MG TAB TAKE ONE TABLET BY MOUTH THREE TIMES A DAY ORAL 10/09/2023 [id number] 4 GAGANDEEP COOPER M 2023 270 [facility] GLUCOSE 4GM TAB,CHEW CHEW ONE TABLET BY MOUTH EVERY DAY NEEDED FOR LOW BLOOD SUGAR ORAL ACTIVE 04/03/2025 [id number] 4 TOÑO CAI 2023 20 [facility] HYDROXYCHLO ROQUINE SO4 200MG TAB TAKE ONE TABLET BY MOUTH ONCE DAILY MONDAY- AND THEN TAKE 1 TABLET TWICE DAILY ON MONDAY AND MONDAY. DO NOT TAKE WITH CITALOPR AM ORAL ACTIVE 08/01/2025 [id number] 5 DAYSI HA JAMES LUEVANOHA 2024 108 [facility] HYDROXYCHLO ROQUINE SO4 200MG TAB TAKE TWO TABLETS BY MOUTH ONCE DAILY 5 DAYS A WEEK, AND 1 TABLET DAILY 2 DAYS A WEEK. ORAL DISCONT INUED 08/19/2024 [id number] 4 MASTERGAGANDEEP LUNDBERG 2023 144 [facility] HYDROXYCHLO ROQUINE SO4 200MG TAB TAKE ONE TABLET BY MOUTH ONCE DAILY ORAL DISCONT INUED 10/10/2024 [id number] 4 GAGANDEEP COOPER EDGARMODE 2023 90 [facility] INSULIN,ASP ART,HUMAN 100 UNT/ML INJ INJECT 80 UNITS SUBCUTAN EOUSLY EVERY DAY FOR USE WITH CONTINUO US INSULIN INFUSION DEVICE SUBCUT ANEOUS ACTIVE 09/10/2025 [id number] 5 CUELLO,AL ICE 2024 8 [facility] INSULIN,ASP ART,HUMAN 100 UNT/ML INJ INJECT 80 UNITS SUBCUTAN EOUSLY EVERY DAY DIRECTED FOR USE WITH CONTINUO US SUBCUTAN EOUS INSULIN INFUSION DEVICE SUBCUT ANEOUS 09/01/2024 [id number] 4 TOÑO CAI 2023 8 [facility] INSULIN,ASP ART,HUMAN 100 UNT/ML INJ INJECT 80 UNITS SUBCUTAN EOUSLY EVERY DAY DIRECTED FOR USE WITH CONTINUO US SUBCUTAN EOUS INSULIN INFUSION DEVICE SUBCUT ANEOUS 04/17/2024 [id number] 4 TOÑO CAI 2022 8 [facility] INSULIN,GLA RGINE,HUMAN 100 UNT/ML INJ INJECT 18 UNITS SUBCUTAN EOUSLY ONCE DAILY NEEDED PUMP FAILURE SUBCUT ANEOUS ACTIVE 09/21/2024 [id number] 5 CUELLO,AL ICE 2024 1 [facility] INSULIN,GLA RGINE-YFGN 100UNIT/ML INJ INJECT 18 UNITS SUBCUTAN EOUSLY ONCE DAILY NEEDED PUMP FAILURE SUBCUT ANEOUS DISCONT INUED (EDIT) 09/21/2024 [id number] 5 CUELLO,AL ICE 2024 1 [facility] KETOCONAZOL E 2% CREAM,TOP APPLY A THIN LAYER TOPICALL Y TWICE DAILY RASH APPLY TO AFFECTED AREAS ON FACE TWICE DAILY FOR 4 WEEKS, THEN NEEDED TOPICA L 07/13/2024 [id number] 4 VEGA PENA 2023 120 [facility] KETOCONAZOL E 2% SHAMPOO SHAMPOO SMALL AMOUNT TOPICALL Y TWICE A WEEK NEEDED APPLY FOR 8 WEEKS, THEN NEEDED TOPICA L 07/13/2024 [id number] 4 VEGA PENA 2023 240 [facility] LEFLUNOMIDE 10MG TAB TAKE ONE TABLET BY MOUTH ONCE DAILY FOR 14 DAYS, THEN TAKE TWO TABLETS ONCE DAILY ORAL DISCONT INUED 03/26/2025 [id number] 4 GAGANDEEP COOPER M 2023 60 [facility] LEFLUNOMIDE 20MG TAB TAKE ONE TABLET BY MOUTH ONCE DAILY ORAL ACTIVE 08/01/2025 [id number] 5 DYASI HA JUDITH 2024 90 [facility] LEFLUNOMIDE 20MG TAB TAKE ONE TABLET BY MOUTH ONCE DAILY ORAL 07/29/2024 [id number] 4 GAGANDEEP COOPER M 2023 90 [facility] LOSARTAN POTASSIUM 100MG TAB TAKE ONE TABLET BY MOUTH ONCE DAILY FOR BLOOD PRESSURE /HEART ORAL ACTIVE 08/10/2025 [id number] 5 TOÑO CAI 2024 90 [facility] MULTIVIT/OP HTH AREDS2/LUTE IN/ZEAXANTH IN CAP/TAB TAKE 1 CAPSULE BY MOUTH TWICE DAILY IN THE MORNING AND EVENING, WITH FOOD ORAL ACTIVE 04/30/2025 [id number] 5 TOÑO CAI 2023 120 [facility] MULTIVIT/OP HTH AREDS2/LUTE IN/ZEAXANTH IN CAP/TAB TAKE 1 CAPSULE BY MOUTH TWICE DAILY IN THE MORNING AND EVENING, WITH FOOD ORAL DISCONT INUED 03/29/2024 [id number] 4 Garcia VALLADARES 2022 120 [facility] OMEPRAZOLE 20MG CAP,EC TAKE 1 CAPSULE BY MOUTH EVERY DAY ORAL ACTIVE ROLAND ACOSTA 2008 [facility] OXYCODONE HCL 5MG TAB TAKE ONE TABLET BY MOUTH EVERY 6 HOURS NEEDED FOR SEVERE PAIN ORAL 03/19/2024 [id number] 4 Ankit STODDARD 2023 16 [facility] OXYCODONE HCL 5MG/ACETAMI NOPHEN 325MG TAB TAKE 1 TABLET BY MOUTH EVERY 6 HOURS NEEDED FOR PAIN ORAL 01/31/2024 [id number] 4 ISABELLE ARREDONDO 2023 5 [facility] PILOCARPINE HCL 5MG TAB TAKE ONE TABLET BY MOUTH TWICE DAILY ORAL ACTIVE 08/14/2025 [id number] 5 DAYSI HA 2024 180 [facility] PREDNISONE 10MG TAB TAKE ONE TABLET BY MOUTH ONCE DAILY ORAL DISCONT INUED 07/09/2024 [id number] 4 GAGANDEEP COOPER 2023 90 [facility] PREDNISONE 10MG TAB TAKE ONE TABLET BY MOUTH ONCE DAILY ORAL DISCONT INUED 01/07/2024 [id number] 4 GAGANDEEP COOPER M 2023 7 [facility] PREDNISONE 1MG TAB TAKE FOUR TABLETS BY MOUTH ONCE DAILY ORAL DISCONT INUED 02/26/2025 [id number] GAGANDEEP COOPER 2023 120 [facility] PREDNISONE 1MG TAB TAKE FOUR TABLETS BY MOUTH ONCE DAILY ORAL DISCONT INUED 10/16/2024 [id number] GAGANDEEP COOPER 2023 120 [facility] PREDNISONE 1MG TAB TAKE ONE TABLET BY MOUTH ONCE DAILY ORAL DISCONT INUED 06/21/2024 [id number] 4 GAGANDEEP COOPER 2023 60 [facility] PREDNISONE 2.5MG TAB TAKE THREE TABLETS BY MOUTH ONCE DAILY ORAL ACTIVE 04/30/2025 [id number] 5 GAGANDEEP COOPER M 2023 90 [facility] PREDNISONE 5MG TAB TAKE ONE TABLET BY MOUTH ONCE DAILY ORAL ACTIVE 08/01/2025 [id number] 5 DAYSI HA 2024 90 [facility] PSYLLIUM PWDR,ORAL TAKE 2 TEASPOON FULS BY MOUTH ONCE DAILY FOR CONSTIPA TION (MIX WITH AT LEAST 8OZ. OF WATER OR OTHER FLUID) ORAL ACTIVE 07/31/2025 [id number] 5 TOÑO CAI 2024 390 [facility] TAMSULOSIN HCL 0.4MG CAP TAKE TWO CAPSULES BY MOUTH AT BEDTIME ORAL ACTIVE 01/22/2025 [id number] 5 EM DEAN 2023 180 [facility] TAMSULOSIN HCL 0.4MG CAP TAKE ONE CAPSULE BY MOUTH AT BEDTIME FOR ENLARGED PROSTATE ORAL DISCONT INUED 10/10/2024 [id number] 4 TOÑO CAI 2023 90 [facility] TAMSULOSIN HCL 0.4MG CAP TAKE ONE CAPSULE BY MOUTH AT BEDTIME FOR ENLARGED PROSTATE ORAL DISCONT INUED (EDIT) 04/12/2024 [id number] 4 TOÑO CAI 2022 30 [facility] TESTOSTERON E CYPIONATE 200MG/ML INJ,1ML (IN OIL) INJECT 0.3ML (60MG) INTRAMUS CULARLY EVERY 7 DAYS FOR LOW TESTOSTE JAGDISH INTRAM USCULA R DISCONT INUED BY PROVIDE R 01/26/2024 [id number] CUELLO,AL ICE 2023 4 [facility] TESTOSTERON E CYPIONATE 200MG/ML INJ,1ML (IN OIL) INJECT 0.3ML (60MG) INTRAMUS CULARLY EVERY 7 DAYS FOR LOW TESTOSTE JAGDISH INTRAM USCULA R DISCONT INUED 10/28/2023 [id number] 4 CUELLO,AL ICE 2022 4 [facility] TOCILIZUMAB 162MG/0.9ML INJ,SYRINGE ,0.9ML INJECT 162MG SUBCUTAN EOUSLY EVERY 2 WEEKS SUBCUT ANEOUS DISCONT INUED BY PROVIDE R 04/12/2025 [id number] GAGANDEEP COOPER M 2023 2 [facility] TOCILIZUMAB 162MG/0.9ML INJ,SYRINGE ,0.9ML INJECT 162MG SUBCUTAN EOUSLY EVERY 2 WEEKS SUBCUT ANEOUS DISCONT INUED 11/17/2024 [id number] SARIAH ROSS 2023 2 [facility] TOCILIZUMAB 162MG/0.9ML INJ,SYRINGE ,0.9ML INJECT 162MG SUBCUTAN EOUSLY EVERY 2 WEEKS SUBCUT ANEOUS DISCONT INUED 08/28/2024 [id number] GAGANDEEP COOPER 2023 2 [facility] TOCILIZUMAB 162MG/0.9ML INJ,SYRINGE ,0.9ML INJECT 162MG SUBCUTAN EOUSLY EVERY 2 WEEKS SUBCUT ANEOUS DISCONT INUED 06/07/2024 [id number] 4 GAGANDEEP COOPER 2022 2 [facility] Allergies, Adverse Reactions, Alerts Combined list of allergies from Department of Defense and Veterans Affairs facilities. It does not include entries that were removed or entered in error. Substance Category Reaction Severity Reaction type Status Date Reported Comments Source METFORMIN Propensity to adverse reactions to drug (finding) [facility] PENICILLIN Propensity to adverse reactions to drug (finding) HIVES active 2 [facility] ZOSYN Propensity to adverse reactions to drug (finding) active 9 [facility] Immunizations Combined list of available immunizations from the Department of [facility] and Veterans Affairs facilities. Immunization Series Date Given Administered By Site Reaction Lot Number CVX Code Drug Retort Condenser Attendant Status Comments Source TDAP 2024 VALERIY SIMPSON E LEFT DELTO ID [id number] 115 complet ed Booster for Series, ADMINISTE RED AT [facility] INFLUENZA, UNSPECIFIED FORMULATION 2023 88 complet ed Booster for Series, HISTORICA L INFORMATI ON - FROM OTHER PROVIDER, [facility] COVID-19 (MODERNA), MRNA, LNP-S, PF, 50 MCG/0.5 ML (AGES 12+ YEARS) 2023 312 complet ed Booster for Series, HISTORICA L INFORMATI ON - FROM OTHER PROVIDER, [facility] COVID-19 (MODERNA), MRNA, LNP-S, PF, 50 MCG/0.5 ML (AGES 12+ YEARS) 1 2022 ZA THAO E RIGHT DELTO ID [id number] 312 complet ed [facility] INFLUENZA, HIGH-DOSE, QUADRIVALENT 2022 ZA THAO HY E LEFT DELTO ID [id number] 197 complet ed ADMINISTE [place] AT [place], [facility] COVID-19 (MODERNA), MRNA, LNP-S, BIVALENT BOOSTER, PF, 50 MCG/0.5 ML OR 25MCG/0.25 ML DOSE 4 2021 229 complet ed HISTORICA L INFORMATI ON - FROM OTHER PROVIDER, [facility] INFLUENZA, UNSPECIFIED FORMULATION 2021 88 complet ed Completed Series, HISTORICA L INFORMATI ON - FROM OTHER PROVIDER, [facility] TD (ADULT), 5 LF TETANUS TOXOID, PRESERVATIVE FREE, ADSORBED 2021 113 complet ed [facility] ZOSTER RECOMBINANT 2 2021 187 complet ed [facility] COVID-19 (MODERNA), MRNA, LNP-S, PF, 100 MCG/0.5ML DOSE OR 50 MCG/0.25ML DOSE 3 2021 207 complet ed [facility] COVID-19 (MODERNA), MRNA, LNP-S, PF, 100 MCG/0.5ML DOSE OR 50 MCG/0.25ML DOSE 2020 207 complet ed Booster for Series, HISTORICA L INFORMATI ON - FROM OTHER PROVIDER, [facility] COVID-19 (MODERNA), MRNA, LNP-S, PF, 100 MCG/0.5ML DOSE OR 50 MCG/0.25ML DOSE 2020 207 complet ed Booster for Series, HISTORICA L INFORMATI ON - FROM OTHER PROVIDER, [facility] INFLUENZA, UNSPECIFIED FORMULATION 2020 88 complet ed [facility] COVID-19 (MODERNA), MRNA, LNP-S, PF, 100 MCG/0.5 ML DOSE 2 2020 207 complet ed MOD; [id number]; 08/01/202 1 [facility] COVID-19 (MODERNA), MRNA, LNP-S, PF, 100 MCG/0.5 ML DOSE 1 2020 207 complet ed MOD; [id number]; 1 [facility] [...] Reference Range Date Interpretation Specimen Comments Source FERRITIN FERRITIN [MASS/VOLUM E] IN SERUM OR PLASMA 69 ng/mL 20 - 300 08/07 Specimen Type: SERUM No comment entered. Ordering Provider: Jameson CAI Report Released Date/Time: Jul 24, 2024 11:22 AM Reporting Lab: [facility] [place] [facility] [address] [facility] [address] Performing Lab: [facility] [place] [facility] [address] [facility] [address] [facility] [place] [facility] IRON & TIBC PANEL IRON BINDING CAPACITY [MASS/VOLUM E] IN SERUM OR PLASMA 350 ug/dL 204 - 475 08/07 Specimen Type: SERUM No comment entered. Ordering Provider: Jameson CAI Report Released Date/Time: Jul 24, 2024 11:22 AM Reporting Lab: [facility] [address] [facility] [address] Performing Lab: [facility] [address] [facility] [address] [facility] [place] [facility] IRON & TIBC PANEL IRON [MASS/VOLUM E] IN SERUM OR PLASMA 53 ug/dL 40 - 160 08/07 Specimen Type: SERUM No comment entered. Ordering Provider: Jameson CAI Report Released Date/Time: Jul 24, 2024 11:22 AM Reporting Lab: [facility] [address] [facility] [address] Performing Lab: [facility] [place] [facility] [address] [facility] [address] [facility] [place] [facility] IRON & TIBC PANEL IRON/IRON BINDING CAPACITY.TO MASTER [MASS RATIO] IN SERUM OR PLASMA 15.2 20.0 - 50.0 08/07 L Specimen Type: SERUM No comment entered. Ordering Provider: Jameson CAI Report Released Date/Time: Jul 24, 2024 11:22 AM Reporting Lab: [facility] [place] [facility] [address] [facility] [address] Performing Lab: [facility] [place] [facility] [address] [facility] [address] [facility] [place] [facility] IRON & TIBC PANEL TRANSFERRIN [MASS/VOLUM E] IN SERUM OR PLASMA 265 mg/dL 200 - 360 08/07 Specimen Type: SERUM No comment entered. Ordering Provider: Jameson CAI Report Released Date/Time: Jul 24, 2024 11:22 AM Reporting Lab: [facility] [place] [facility] [address] [facility] [address] Performing Lab: [facility] [place] [facility] [address] [facility] [address] [facility] [place] [facility] LIVER FUNCTION PROTEIN [MASS/VOLUM E] IN SERUM OR PLASMA 5.5 g/dL 6.0 - 8.3 08/07 L Specimen Type: SERUM No comment entered. Ordering Provider: Jameson CAI Report Released Date/Time: Jul 24, 2024 11:22 AM Reporting Lab: [facility] [place] [facility] [address] [facility] [address] Performing Lab: [facility] [place] [facility] [address] [facility] [address] [facility] [place] [facility] LIVER FUNCTION ALBUMIN [MASS/VOLUM E] IN SERUM OR PLASMA 3.5 g/dL 3.5 - 5.0 08/07 Specimen Type: SERUM No comment entered. Ordering Provider: Jameson CAI Report Released Date/Time: Jul 24, 2024 11:22 AM Reporting Lab: [facility] [place] [facility] [address] [facility] [address] Performing Lab: [facility] [place] [facility] [address] [facility] [address] [facility] [facility] LIVER FUNCTION ALKALINE PHOSPHATASE [ENZYMATIC ACTIVITY/VO LUME] IN SERUM OR PLASMA 82 U/L 40 - 150 08/07 Specimen Type: SERUM No comment entered. Ordering Provider: Jameson CAI Report Released Date/Time: Jul 24, 2024 11:22 AM Reporting Lab: [facility] [place] [facility] [address] [facility] [address] Performing Lab: [facility] [place] [facility] [address] [facility] [address] [facility] [place] [facility] LIVER FUNCTION ASPARTATE AMINOTRANSF ERASE [ENZYMATIC ACTIVITY/VO LUME] IN SERUM OR PLASMA 25 U/L 5 - 34 08/07 Specimen Type: SERUM No comment entered. Ordering Provider: Jameson CAI Report Released Date/Time: Jul 24, 2024 11:22 AM Reporting Lab: [facility] [place] [facility] [address] [facility] [address] Performing Lab: [facility] [place] [facility] [address] [facility] [address] [facility] [place] [facility] LIVER FUNCTION ALANINE AMINOTRANSF ERASE [ENZYMATIC ACTIVITY/VO LUME] IN SERUM OR PLASMA 27 U/L 08/07 Specimen Type: SERUM No comment entered. Ordering Provider: Jameson CAI Report Released Date/Time: Jul 24, 2024 11:22 AM Reporting Lab: [facility] [place] [facility] [address] [facility] [address] Performing Lab: [facility] [place] [facility] [address] [facility] [address] [facility] [place] [facility] LIVER FUNCTION BILIRUBIN.T OTAL [MASS/VOLUM E] IN SERUM OR PLASMA 0.7 mg/dL 0.2 - 1.2 08/07 Specimen Type: SERUM No comment entered. Ordering Provider: Jameson CAI Report Released Date/Time: Jul 24, 2024 11:22 AM Reporting Lab: [facility] [place] [address] [address] Performing Lab: [facility] [place] [address] [address] [facility] [facility]ABOLIC PANEL (fasting) UREA NITROGEN [MASS/VOLUM E] IN SERUM OR PLASMA 18 mg/dL 7 - 25 08/07 Specimen Type: SERUM No comment entered. Ordering Provider: Jameson CAI Report Released Date/Time: Jul 24, 2024 11:22 AM Reporting Lab: [facility] [place] [address] [address] Performing Lab: [facility] [place] [address] [address] [facility] [place] [facility] BASIC METABOLIC PANEL (fasting) GLUCOSE [MASS/VOLUM E] IN SERUM OR PLASMA 150 mg/dL 65 - 100 08/07 H Specimen Type: SERUM No comment entered. Ordering Provider: Jameson CAI Report Released Date/Time: Jul 24, 2024 11:22 AM Reporting Lab: [facility] [place] [address] [address] Performing Lab: [facility] [place] [address] [address] [facility] [place] [facility] BASIC METABOLIC PANEL (fasting) SODIUM [MOLES/VOLU ME] IN SERUM OR PLASMA 143 mmol/L 135 - 145 08/07 Specimen Type: SERUM No comment entered. Ordering Provider: Jameson CAI Report Released Date/Time: Jul 24, 2024 11:22 AM Reporting Lab: [facility] [place] [address] [address] Performing Lab: [facility] [place] [facility] [address] [facility] [address] [facility] [place] [facility] BASIC METABOLIC PANEL (fasting) POTASSIUM [MOLES/VOLU ME] IN SERUM OR PLASMA 3.4 mmol/L 3.5 - 5.0 08/07 L Specimen Type: SERUM No comment entered. Ordering Provider: Jameson CAI Report Released Date/Time: Jul 24, 2024 11:22 AM Reporting Lab: [facility] [place] [facility] [address] [facility] [address] Performing Lab: [facility] [place] [facility] [address] [facility] [address] [facility] BASIC METABOLIC PANEL (fasting) CHLORIDE [MOLES/VOLU ME] IN SERUM OR PLASMA 106 mmol/L 100 - 110 08/07 Specimen Type: SERUM No comment entered. Ordering Provider: Jameson CAI Report Released Date/Time: Jul 24, 2024 11:22 AM Reporting Lab: [facility] [place] [facility] [address] [facility] [address] Performing Lab: [facility] [place] [facility] [address] [facility] [address] [facility] BASIC METABOLIC PANEL (fasting) CARBON DIOXIDE, TOTAL [MOLES/VOLU ME] IN SERUM OR PLASMA 26 meq/L 20 - 30 08/07 Specimen Type: SERUM No comment entered. Ordering Provider: Jameson CAI Report Released Date/Time: Jul 24, 2024 11:22 AM Reporting Lab: [facility] [place] [facility] [address] [facility] [address] Performing Lab: [facility] [place] [facility] [address] [facility] [address] [facility] BASIC METABOLIC PANEL (fasting) CALCIUM [MASS/VOLUM E] IN SERUM OR PLASMA 9.1 mg/dL 8.5 - 10.2 08/07 Specimen Type: SERUM No comment entered. Ordering Provider: Jameson CAI Report Released Date/Time: Jul 24, 2024 11:22 AM Reporting Lab: [facility] [place] [address] [address] Performing Lab: [facility] [address] [address] [facility] [place] [facility] BASIC METABOLIC PANEL (fasting) CREATININE [MASS/VOLUM E] IN SERUM OR PLASMA 0.75 mg/dL 0.50 - 1.40 08/07 Specimen Type: SERUM No comment entered. Ordering Provider: Jameson CAI Report Released Date/Time: Jul 24, 2024 11:22 AM Reporting Lab: [facility] [address] [address] Performing Lab: [facility] [address] [address] [facility] BASIC METABOLIC PANEL (fasting) GLOMERULAR FILTRATION RATE/1.73 SQ M.PREDICTED [VOLUME RATE/AREA] IN SERUM, PLASMA OR BLOOD BY CREATININE- BASED FORMULA (CKD-EPI 2020) 87 mL/min 60 08/07 Specimen Type: SERUM No comment entered. Ordering Provider: Jameson CAI Report Released Date/Time: Jul 24, 2024 11:22 AM Reporting Lab: [facility] [address] Performing Lab: [facility] [address] [address] [facility]ITALUSE [facility] CBC AND DIFF (AUTO) LEUKOCYTES [#/VOLUME] IN BLOOD BY AUTOMATED COUNT 3.96 10*3/u L 4.50 - 11.00 08/07 L Specimen Type: BLOOD No comment entered. Ordering Provider: Jameson CAI Report Released Date/Time: Jul 24, 2024 11:22 AM Reporting Lab: [facility] [address] [address] Performing Lab: [facility] [place] [facility] [address] [facility] [address] [facility] [place] [facility] CBC AND DIFF (AUTO) ERYTHROCYTE S [#/VOLUME] IN BLOOD BY AUTOMATED COUNT 4.18 10*6/u L 4.23 - 5.66 08/07 L Specimen Type: BLOOD No comment entered. Ordering Provider: Jameson CAI Report Released Date/Time: Jul 24, 2024 11:22 AM Reporting Lab: [facility] [place] [facility] [address] [facility] [address] Performing Lab: [facility] [place] [facility] [address] [facility] [address] [facility] [place] [facility] CBC AND DIFF (AUTO) HEMOGLOBIN [MASS/VOLUM E] IN BLOOD 12.7 g/dL 12.8 - 17 08/07 L Specimen Type: BLOOD No comment entered. Ordering Provider: Jameson CAI Report Released Date/Time: Jul 24, 2024 11:22 AM Reporting Lab: [facility] [place] [place] [facility] [address] [facility] [address] Performing Lab: [facility] [place] [address] [address] [facility] [place] [place] [facility] CBC AND DIFF (AUTO) HEMATOCRIT [VOLUME FRACTION] OF BLOOD BY AUTOMATED COUNT 38.5 39.2 - 50.4 08/07 L Specimen Type: BLOOD No comment entered. Ordering Provider: Jameson CAI Report Released Date/Time: Jul 24, 2024 11:22 AM Reporting Lab: [facility] [place] [facility] [address] [facility] [address] Performing Lab: [facility] [place] [address] [address] [facility] [place] [facility] CBC AND DIFF (AUTO) MCV [ENTITIC VOLUME] BY AUTOMATED COUNT 92.1 fL 82 - 99 08/07 Specimen Type: BLOOD No comment entered. Ordering Provider: Jameson CAI Report Released Date/Time: Jul 24, 2024 11:22 AM Reporting Lab: [facility] [place] [facility] [address] [facility] [address] Performing Lab: [facility] [place] [facility] [address] [facility] [address] [facility] [place] [facility] CBC AND DIFF (AUTO) MCHC [MASS/VOLUM E] BY AUTOMATED COUNT 33.0 g/dL 30.8 - 35.1 08/07 Specimen Type: BLOOD No comment entered. Ordering Provider: Jameson CAI Report Released Date/Time: Jul 24, 2024 11:22 AM Reporting Lab: [facility] [place] [facility] [address] [facility] [address] Performing Lab: [facility] [place] [facility] [address] [facility] [address] [facility] [place] [facility] CBC AND DIFF (AUTO) PLATELETS [#/VOLUME] IN BLOOD BY AUTOMATED COUNT 121 10*3/u L 140 - 360 08/07 L Specimen Type: BLOOD No comment entered. Ordering Provider: Jameson CAI Report Released Date/Time: Jul 24, 2024 11:22 AM Reporting Lab: [facility] [place] [facility] [address] [facility] [address] Performing Lab: [facility] [place] [facility] [address] [facility] [address] [facility] [place] [facility] CBC AND DIFF (AUTO) ERYTHROCYTE DISTRIBUTIO N WIDTH [RATIO] BY AUTOMATED COUNT 13.5 12.0 - 16.0 08/07 Specimen Type: BLOOD No comment entered. Ordering Provider: Jameson CAI Report Released Date/Time: Jul 24, 2024 11:22 AM Reporting Lab: [facility] [place] [facility] [address] [facility] [address] Performing Lab: [facility] [place] [facility] [address] [facility] [address] [facility] [place] [facility] CBC AND DIFF (AUTO) MONOCYTES [#/VOLUME] IN BLOOD BY AUTOMATED COUNT 0.71 10*3/u L 0.30 - 1.10 08/07 Specimen Type: BLOOD No comment entered. Ordering Provider: Jameson CAI Report Released Date/Time: Jul 24, 2024 11:22 AM Reporting Lab: [facility] [place] [facility] [address] [facility] [address] Performing Lab: [facility] [place] [place] [facility] [address] [facility] [address] [facility] [place] [facility] CBC AND DIFF (AUTO) MCH [ENTITIC MASS] BY AUTOMATED COUNT 30.4 pg 26.2 - 32.6 08/07 Specimen Type: BLOOD No comment entered. Ordering Provider: Jameson CAI Report Released Date/Time: Jul 24, 2024 11:22 AM Reporting Lab: [facility] [place] [address] [address] Performing Lab: [facility] [place] [address] [address] [facility] [place] [facility] CBC AND DIFF (AUTO) NEUTROPHILS /100 LEUKOCYTES IN BLOOD BY AUTOMATED COUNT 48.7 43.7 - 75.8 08/07 Specimen Type: BLOOD No comment entered. Ordering Provider: Jameson CAI Report Released Date/Time: Jul 24, 2024 11:22 AM Reporting Lab: [facility] [place] [facility] [address] [facility] [address] Performing Lab: [facility] [place] [facility] [address] [facility] [address] [facility] [place] [facility] CBC AND DIFF (AUTO) LYMPHOCYTES /100 LEUKOCYTES IN BLOOD BY AUTOMATED COUNT 25.3 14.0 - 42.3 08/07 Specimen Type: BLOOD No comment entered. Ordering Provider: Jameson CAI Report Released Date/Time: Jul 24, 2024 11:22 AM Reporting Lab: [facility] [place] [address] [address] Performing Lab: [facility] [place] [facility] [address] [facility] [address] [facility] [place] [facility] CBC AND DIFF (AUTO) MONOCYTES/1 00 LEUKOCYTES IN BLOOD BY AUTOMATED COUNT 17.9 5.1 - 13.7 08/07 H Specimen Type: BLOOD No comment entered. Ordering Provider: Jameson CAI Report Released Date/Time: Jul 24, 2024 11:22 AM Reporting Lab: [facility] [place] [facility] [address] [facility] [address] Performing Lab: [facility] [place] [facility] [address] [facility] [address] [facility] [place] [facility] CBC AND DIFF (AUTO) EOSINOPHILS /100 LEUKOCYTES IN BLOOD BY AUTOMATED COUNT 5.8 0.4 - 6.8 08/07 Specimen Type: BLOOD No comment entered. Ordering Provider: Jameson CAI Report Released Date/Time: Jul 24, 2024 11:22 AM Reporting Lab: [facility] [place] [facility] [address] [facility] [address] Performing Lab: [facility] [place] [facility] [address] [facility] [address] [facility] [place] [facility] CBC AND DIFF (AUTO) BASOPHILS/1 00 LEUKOCYTES IN BLOOD BY AUTOMATED COUNT 1.8 0.1 - 2.0 08/07 Specimen Type: BLOOD No comment entered. Ordering Provider: Jameson CAI Report Released Date/Time: Jul 24, 2024 11:22 AM Reporting Lab: [facility] [place] [facility] [address] [facility] [address] Performing Lab: [facility] [place] [facility] [address] [place] [address] [facility] [place] [facility] CBC AND DIFF (AUTO) NEUTROPHILS [#/VOLUME] IN BLOOD BY AUTOMATED COUNT 1.93 10*3/u L 2.20 - 7.60 08/07 L Specimen Type: BLOOD No comment entered. Ordering Provider: VANWAGNER,W ILLIAM F Report Released Date/Time: Jul 24, 2024 11:22 AM Reporting Lab: [facility] [place] [facility] [address] [facility] [address] Performing Lab: [facility] [place] [facility] [address] [facility] [address] [facility] [place] [facility] CBC AND DIFF (AUTO) LYMPHOCYTES [#/VOLUME] IN BLOOD BY AUTOMATED COUNT 1.00 10*3/u L 1.00 - 3.20 08/07 Specimen Type: BLOOD No comment entered. Ordering Provider: Jameson CAI Report Released Date/Time: Jul 24, 2024 11:22 AM Reporting Lab: [facility] [place] [facility] [address] [facility] [address] Performing Lab: [facility] [facility] [address] [facility] [address] [facility] [place] [facility] CBC AND DIFF (AUTO) EOSINOPHILS [#/VOLUME] IN BLOOD BY AUTOMATED COUNT 0.23 10*3/u L 0.03 - 0.44 08/07 Specimen Type: BLOOD No comment entered. Ordering Provider: Jameson CAI Report Released Date/Time: Jul 24, 2024 11:22 AM Reporting Lab: [facility] [facility] [address] [facility] [address] Performing Lab: [facility] [place] [facility] [address] [facility] [address] [facility] [place] [facility] CBC AND DIFF (AUTO) BASOPHILS [#/VOLUME] IN BLOOD BY AUTOMATED COUNT 0.07 10*3/u L 0.01 - 0.13 08/07 Specimen Type: BLOOD No comment entered. Ordering Provider: Jameson CAI Report Released Date/Time: Jul 24, 2024 11:22 AM Reporting Lab: [facility] [place] [facility] [address] [facility] [address] Performing Lab: [facility] [place] [facility] [address] [facility] [address] [facility] [place] [facility] CBC AND DIFF (AUTO) IMMATURE GRANULOCYTE S/100 LEUKOCYTES IN BLOOD BY AUTOMATED COUNT 0.5 0.0 - 0.7 08/07 Specimen Type: BLOOD No comment entered. Ordering Provider: Jameson CAI Report Released Date/Time: Jul 24, 2024 11:22 AM Reporting Lab: [facility] [place] [facility] [address] [facility] [address] Performing Lab: [facility] [place] [facility] [address] [facility] [address] [facility] [facility] CBC AND DIFF (AUTO) IMMATURE GRANULOCYTE S [#/VOLUME] IN BLOOD 0.02 10*3/u L 0.00 - 0.06 08/07 Specimen Type: BLOOD No comment entered. Ordering Provider: Jameson CAI Report Released Date/Time: Jul 24, 2024 11:22 AM Reporting Lab: [facility] [place] [facility] [address] [facility] [address] Performing Lab: [facility] [place] [address] [address] [facility] [place] [facility] CBC AND DIFF (AUTO) NRBC % 0.0 0.0 - 0.0 08/07 Specimen Type: BLOOD No comment entered. Ordering Provider: Jameson CAI Report Released Date/Time: Jul 24, 2024 11:22 AM Reporting Lab: [facility] [facility] [address] [facility] [address] Performing Lab: [facility] [place] [place] [address] [address] [facility] [place] [facility] CBC AND DIFF (AUTO) NRBC, ABS 0.00 10*3/u L 0.00 - 0.00 08/07 Specimen Type: BLOOD No comment entered. Ordering Provider: Jameson CAI Report Released Date/Time: Jul 24, 2024 11:22 AM Reporting Lab: [facility] [place] [facility] [address] [facility] [address] Performing Lab: [facility]ERRFA[facility]ERN [facility]PITALUSEGAR[facility] [address] [facility] [address] [facility]ITALUSE [facility] OSMOLALIT Y (SERUM) OSMOLALITY OF SERUM OR PLASMA 305 280 - 300 08/07 H Specimen Type: SERUM Comment: Manually entered by: RTO Ordering Provider: FALLON CUELLO Report Released Date/Time: Jul 24, 2024 02:18 PM Reporting Lab: [facility]ITALUSEG[facility] [address] [facility] [address] Performing Lab: [facility] [address] [facility] [address] [facility] VITAMIN D (25-OH) 25-HYDROXYV ITAMIN D3 [MASS/VOLUM E] IN SERUM OR PLASMA 41 ng/mL 20 - 50 08/07 Specimen Type: SERUM No comment entered. Ordering Provider: FALLON CUELLO Report Released Date/Time: Jul 24, 2024 02:18 PM Reporting Lab: [facility] [address] [facility] [address] Performing Lab: [facility]USE[address] [address] [facility] HEMOGLOBI N A1C PANEL HEMOGLOBIN A1C/HEMOGLO BIN.TOTAL IN BLOOD BY HPLC 5.9 4.0 - 5.6 08/07 H Specimen Type: BLOOD Comment: Values obtained from A1C measurement s can vary. For atypical A1C assays, a reported value of 7.0 could actually be between 6.72 and 7.28 if measured by a reference method. A reported value of 9.0 could actually be between 8.73 and 9.27. Ref: http://www. ngsp.org/[place] Pdata.asp Ordering Provider: FALLON CUELLO Report Released Date/Time: Jul 24, 2024 02:23 PM Reporting Lab: [facility] [address] [facility] [address] Performing Lab: [address] [address] [facility] BASIC METABOLIC PANEL (non-fast ing) UREA NITROGEN [MASS/VOLUM E] IN SERUM OR PLASMA 19 mg/dL 7 - 25 08/07 Specimen Type: SERUM No comment entered. Ordering Provider: FALLON CUELLO Report Released Date/Time: Jul 24, 2024 02:18 PM Reporting Lab: [address] [address] Performing Lab: [address] [address] [facility] BASIC METABOLIC PANEL (non-fast ing) GLUCOSE [MASS/VOLUM E] IN SERUM OR PLASMA 149 mg/dL 65 - 100 08/07 H Specimen Type: SERUM No comment entered. Ordering Provider: FALLON CUELLO Report Released Date/Time: Jul 24, 2024 02:18 PM Reporting Lab: [address] [address] Performing Lab: [address] [address] [facility] BASIC METABOLIC PANEL (non-fast ing) SODIUM [MOLES/VOLU ME] IN SERUM OR PLASMA 141 mmol/L 135 - 145 08/07 Specimen Type: SERUM No comment entered. Ordering Provider: FALLON CUELLO Report Released Date/Time: Jul 24, 2024 02:18 PM Reporting Lab: [address] [address] Performing Lab: [address] [address] [facility] BASIC METABOLIC PANEL (non-fast ing) POTASSIUM [MOLES/VOLU ME] IN SERUM OR PLASMA 3.4 mmol/L 3.5 - 5.0 08/07 L Specimen Type: SERUM No comment entered. Ordering Provider: FALLON CUELLO Report Released Date/Time: Jul 24, 2024 02:18 PM Reporting Lab: [address] [place] [address] Performing Lab: [facility]PITALTRN [facility]ITALUSEGAR[facility] [address] [facility] [address] [facility]ITALUSE [facility] BASIC METABOLIC PANEL (non-fast ing) CHLORIDE [MOLES/VOLU ME] IN SERUM OR PLASMA 106 mmol/L 100 - 110 08/07 Specimen Type: SERUM No comment entered. Ordering Provider: FALLON CUELLO Report Released Date/Time: Jul 24, 2024 02:18 PM Reporting Lab: [facility]ERRFAY[facility]ERN [facility]PITALUSEGAR[facility] [address] [facility] [address] Performing Lab: [facility] [address] [facility] [address] [facility] BASIC METABOLIC PANEL (non-fast ing) CARBON DIOXIDE, TOTAL [MOLES/VOLU ME] IN SERUM OR PLASMA 26 meq/L 20 - 30 08/07 Specimen Type: SERUM No comment entered. Ordering Provider: FALLON CUELLO Report Released Date/Time: Jul 24, 2024 02:18 PM Reporting Lab: [facility] [address] [facility] [address] Performing Lab: [facility] [address] [facility] [address] [facility] BASIC METABOLIC PANEL (non-fast ing) CALCIUM [MASS/VOLUM E] IN SERUM OR PLASMA 9.0 mg/dL 8.5 - 10.2 08/07 Specimen Type: SERUM No comment entered. Ordering Provider: FALLON CUELLO Report Released Date/Time: Jul 24, 2024 02:18 PM Reporting Lab: [facility]ITALUSEGAR[facility] [address] [facility] [address] Performing Lab: [facility]ITALUSEGAR[facility] [address] [facility] [address] [facility] BASIC METABOLIC PANEL (non-fast ing) CREATININE [MASS/VOLUM E] IN SERUM OR PLASMA 0.73 mg/dL 0.50 - 1.40 08/07 Specimen Type: SERUM No comment entered. Ordering Provider: FALLON CUELLO Report Released Date/Time: Jul 24, 2024 02:18 PM Reporting Lab: [facility] [facility] [address] [facility] [address] Performing Lab: [facility] [facility] [address] [facility] [address] [facility] [place] [facility] BASIC METABOLIC PANEL (non-fast ing) GLOMERULAR FILTRATION RATE/1.73 SQ M.PREDICTED [VOLUME RATE/AREA] IN SERUM, PLASMA OR BLOOD BY CREATININE- BASED FORMULA (CKD-EPI 2020) 88 mL/min 60 08/07 Specimen Type: SERUM No comment entered. Ordering Provider: FALLON CUELLO Report Released Date/Time: Jul 24, 2024 02:18 PM Reporting Lab: [facility] [place] [address] [address] Performing Lab: [facility] [place] [address] [address] [facility] [place] [facility] MICROALBU MIN CREATININ E RATIO PANEL MICROALBUMI N/CREATININ E [MASS RATIO] IN URINE 52.0 mg/g 0 - 29.9 08/07 H Specimen Type: URINE No comment entered. Ordering Provider: FALLON CUELLO Report Released Date/Time: Jul 24, 2024 02:23 PM Reporting Lab: [facility] [place] [address] [address] Performing Lab: [facility] [place] [facility] [address] [facility] [address] [facility] [place] [facility] MICROALBU MIN CREATININ E RATIO PANEL MICROALBUMI N [MASS/VOLUM E] IN URINE 10.4 mg/dL 08/07 Specimen Type: URINE No comment entered. Ordering Provider: FALLON CUELOL Report Released Date/Time: Jul 24, 2024 02:23 PM Reporting Lab: [facility] [place] [address] [address] Performing Lab: [facility] [place] [address] [address] [facility] MICROALBU MIN CREATININ E RATIO PANEL CREATININE [MASS/VOLUM E] IN URINE 199.85 mg/dL 08/07 Specimen Type: URINE No comment entered. Ordering Provider: FALLON CUELLO Report Released Date/Time: Jul 24, 2024 02:23 PM Reporting Lab: [facility] [address] [facility] [address] Performing Lab: [facility] [address] [facility] [address] [facility] [place] [facility] Vital Signs Combined list of inpatient and outpatient Vital Signs from Department of Defense and Veterans Affairs, ranging from 12 months to all on record, depending upon the facility. Vital Sign Value Date Comments Source SYSTOLIC BLOOD PRESSURE 107 08/23/19 11:02:31 [facility] DIASTOLIC BLOOD PRESSURE 64 025 11:02:31 [facility] PULSE OXIMETRY 94 08/22/2024 11:02:31 [facility] WEIGHT 160 08/22/2024 11:02:31 [facility] BMI 27 kg/m2 08/22/2024 11:02:31 [facility] PAIN 5 08/22/2024 11:02:31 [facility] HEIGHT 64.5 08/22/2024 11:02:31 [facility] TEMPERATURE 97.9 08/22/2024 11:02:31 [facility] PULSE 75 08/22/2024 11:02:31 [facility] RESPIRATION 16 08/22/2024 11:02:31 [facility] SYSTOLIC BLOOD PRESSURE 122 08/21/19 25 10:16:29 [facility] DIASTOLIC BLOOD PRESSURE 70 025 10:16:29 [facility] PULSE OXIMETRY 93 08/20/2024 10:16:29 [facility] WEIGHT 163 08/20/2024 10:16:29 [facility] BMI 28 kg/m2 08/20/2024 10:16:29 [facility] PAIN 4 08/20/2024 10:16:29 [facility] TEMPERATURE 97.3 08/20/2024 10:16:29 [facility] PULSE 74 08/20/2024 10:16:29 [facility] RESPIRATION 18 08/20/2024 10:16:29 [facility] SYSTOLIC BLOOD PRESSURE 146 08/16/19 25 13:41:15 [facility] DIASTOLIC BLOOD PRESSURE 86 025 13:41:15 [facility] PULSE OXIMETRY 96 08/16/2024 13:41:15 [facility] WEIGHT 160 08/16/2024 13:41:15 [facility] BMI 27 kg/m2 08/16/2024 13:41:15 [facility] PAIN 0 08/16/2024 13:41:15 [facility] TEMPERATURE 98.1 08/16/2024 13:41:15 [facility] PULSE 100 08/16/2024 13:41:15 [facility] RESPIRATION 16 08/16/2024 13:41:15 [facility] SYSTOLIC BLOOD PRESSURE 93 07/05/19 25 10:58:41 [facility] DIASTOLIC BLOOD PRESSURE 50 025 10:58:41 [facility] PAIN 10 07/05/2024 10:58:41 [facility] SYSTOLIC BLOOD PRESSURE 126 06/17/20 24 10:35:55 [facility] DIASTOLIC BLOOD PRESSURE 74 06/17/ 024 10:35:55 [facility] [...] 06/17/2024 10:35:55 [facility] Encounters Combined [...] Disposition Source [facility] OFFICE O/P EST LOW 20-29 MIN [id number]. 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 VEGA PENA 04/04 [facility] Outpatient Encounter [id number] 04/17 [facility] HEARING AID REPAIR/MOD IFYING [id number] Diagnos is: ICD-10- CM Z46.1 Encount er for fitting and adjustm ent of hearing aid EVERTON BOYD 04/21 [facility] OFF/OP EST MAY X REQ PHY/QHP [id number] Diagnos is: ICD-10- CM Z23 Encount er for immuniz ation LIDA THAO E 04/21 [facility] OFF/OP EST MAY X REQ PHY/QHP [id number] [id number] Diagnos is: ICD-10- CM 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 MAINE ARIAS E M 04/26 [facility] OFFICE O/P EST MOD 30-39 MIN 44746-4.63 [id number] Diagnos is: ICD-10- CM 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 JAYLEN CUELLO CE 04/26 [facility] OFF/OP EST MAY X REQ PHY/QHP [id number] Diagnos is: ICD-10- CM E11.8 Type 2 diabete s mellitu s with unspeci fied complic ations MAINE ARIAS E M 04/26 [facility] LOW 20-29 MIN [id number] Diagnos is: ICD-10- CM 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, recurre nt, unspeci fied CALVIN HARPER N 04/26 [place] [facility] FEE [id number] Diagnos is: ICD-10- CM 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, recurre nt, unspeci fied CALVIN HARPER N 04/26 [facility] Outpatient Encounter [id number] 04/26 [facility] QNHP OL DIG ASSMT&MGMT 5-10 [id number] Diagnos is: ICD-10- CM 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 ENE MELENDEZ A 04/26 [facility] CONT GLUC MNTR ANALYSIS I&R [id number] [id number] Diagnos is: ICD-10- CM E11.8 Type 2 diabete s mellitu s with unspeci fied complic ations JAYLEN CUELLO 04/26 [facility] OFF/OP EST MAY X REQ PHY/QHP [id number] [id number] Diagnos is: ICD-10- CM 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 MAINE ARIAS M 05/16 [facility] Outpatient Encounter [id number] 06/02 [facility] OFFICE O/P EST MOD 30-39 MIN [id number] Diagnos is: ICD-10- CM E11.8 Type 2 diabete s mellitu s with unspeci fied complic ations TOÑO CAI 06/05 [facility] Outpatient Encounter [id number] Diagnos is: ICD-10- CM Z04.89 Encount er for examina tion and observa tion for oth reasons ROHINI RAMIREZ Mikey 06[facility]09 [facility] [id number] Diagnos is: ICD-10- CM D80.1 Nonfami lial hypogam pelonbu RAMONA Rivera MD 06/23 [facility] OFFICE O/P EST MOD 30 MIN [id number] [id number] Diagnos is: ICD-10- CM 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, recurre nt, unspeci fied MEREDITH,GIHYU N 07/12 [facility] [place] [place] [facility] FEE [id number] Diagnos is: ICD-10- CM 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, recurre nt, unspeci fied MEREDITH,GIHYU N 07/12 [facility] Outpatient Encounter [id number] 07/12 [facility] OFFICE O/P EST MOD 30 MIN [id number] [id number] Diagnos is: ICD-10- CM 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 VEGA PENA 07/13 [facility] Outpatient Encounter [id number] 07/29 [facility] OFFICE O/P EST MOD 30 MIN [id number] [id number] Diagnos is: ICD-10- CM I10 Essenti al (primar y) hyperte TOÑO Flood 08/11 [facility] Outpatient Encounter [id number] Diagnos is: ICD-10- CM E11.8 Type 2 diabete s mellitu s with unspeci fied complic ations JAYLEN CUELLO 08/12 [facility] Out[facility] Encounter [id number] 09/12 [facility] Outpatient Encounter [id number] 10/02 [facility] OFFICE O/P EST LOW 20 MIN [id number] [id number] Diagnos is: ICD-10- CM 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 TOÑO CAI 10/08 [facility] Outpatient Encounter [id number] 10/08 [facility] OFFICE O/P EST HI 40 MIN [id number] [id number] Diagnos is: ICD-10- CM 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 VEGA PENA 10/09 [facility] Outpatient Encounter [id number] Diagnos is: ICD-10- CM E29.1 Testicu lar hypofun ctJAYLEN Estrada 10/10 [facility] Outpatient Encounter [id number] LESTER ANDERSON MD 10/11 [facility] DENOSUMAB INJECTION [id number] Diagnos is: ICD-10- CM 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P EST LOW 20 MIN [id number] Diagnos is: ICD-10- CM 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, recurre nt, unspeci fied MEREDITH,GIHYU N 10/31 [place] [facility] OFFICE O/P EST LOW 20 MIN [id number] Diagnos is: ICD-10- CM F33.0 Major depress marc disorde r, recurre nt, mild MEREDITH,GIHYU N 10/31 [facility] OFF/OP EST MAY X REQ PHY/QHP [id number] [id number] Diagnos is: ICD-10- CM Z04.9 Encount er for examina tion and observa tion for unsp reason Juma TALBOT 10/31 [facility] Outpatient [facility]counter [id number] 10/31 [facility] OFFICE O/P EST LOW 20 MIN [id number] Diagnos is: ICD-10- CM S41.111 A Lacerat ion w/o foreign body of right upper arm, init encntr JUAN ERNST 10/31 [facility] OFFICE O/P EST LOW 20 MIN [id number] [id number] Diagnos is: ICD-10- CM R60.0 Localiz ed edema JUAN ERNST 11/01 [facility] NURSING ASSESSMENT /EVALUATN [id number] [id number] Diagnos is: ICD-10- CM R22.30 Localiz ed swellin g, mass and lump, unspeci fied upper limb Gabino KENDALL 11/01 [facility] Out[facility] Encounter [id number] 11/05 [facility] Out[facility] Encounter [id number] 11/21 [facility] OFFICE O/P EST LOW 20 MIN [id number] Diagnos is: ICD-10- CM M81.0 Age-rel ated osteopo rosis w/o current patholo violette bhatti e JAYLEN CUELLO 11/26 [facility] Outpatient Encounter [id number] 1.01/21 [facility] OFFICE O/P EST LOW 20 MIN 44590-3.63 1. Diagnos is: ICD-10- CM M06.9 Rheumat oid arthrit is, unspeci fied TOÑO CAI 02/11 [facility] Outpatient Encounter [id number] [facility] Outpatient Encounter [id number] 1.02/12 /2024 [facility] Outpatient Encounter [id number] 02/26 [facility] Outpatient Encounter [id number] 02/27 [facility] OFFICE O/P EST MOD 30 MIN [id number] [id number] Diagnos is: ICD-10- CM 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, recurre nt, unspeci fied LILI HARPERHYU N 02/27 [facility] FEE [id number] [id number] Diagnos is: ICD-10- CM 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, recurre nt, unspeci fied LILI HARPERHYU N 02/27 [facility] Outpatient Encounter [id number] 03/14 [facility] Outpatient Encounter [id number] 03/14 [facility] CPTR OPHTH DX IMG POST SEGMT [id number] Diagnos is: ICD-10- CM 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 Diagnos is: ICD-10- CM Z46.0 Encount er for fit/adj st of spectac les and contact lenses JACQUELYNANALI JUAN E 03/25 [facility] Outpatient Encounter [id number] [facility] OFFICE O/P EST LOW 20 MIN [id number] [id number] Diagnos is: ICD-10- CM M75.51 Bursiti s of right shoulde r TOÑO CAI 04/02 [facility] OFFICE O/P EST MOD 30 MIN [id number] 1. Diagnos is: ICD-10- CM L57.0 Actinic keratos is VEGA PENA 04/04 [facility] PROSTHETIC TRAING 1ST ENC [id number] [id number] Diagnos is: ICD-10- CM M54.9 Dorsalg ia, unspeci JAYLON Suresh 04/08 [facility] Outpatient Encounter [id number]/12 [facility] THERAPEUTI C EXERCISES [id number] 1. Diagnos is: ICD-10- CM M54.9 Dorsalg ia, unspeci Juma Orellana 04/16 [facility] Outpatient Encounter [id number] 04/28 [facility] THERAPEUTI C EXERCISES 28014-9.63 1. Diagnos is: ICD-10- CM M54.9 Dorsalg ia, unspeci JAYLON Suresh 05/02 [facility] Outpatient Encounter [id number] 05/08 [facility] THERAPEUTI C EXERCISES [id number] Diagnos is: ICD-10- CM M75.41 Impinge ment syndrom e of right shoulde r VINAYTAN LIE E 05/08 [facility] Outpatient Encounter [id number] 05/09 [facility] Outpatient Encounter [id number] 05/13 [facility] Outpatient Encounter [id number] 05/29 [facility] DENOSUMAB INJECTION [id number] 1. 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 KHUSHBOO,JAYLEN CE 05/29 [facility] Outpatient Encounter [id number] 1.05/29 [facility] Outpatient Encounter [id number] 1.06/03 [facility] MOD 30 MIN [id number] [id number] Diagnos is: ICD-10- CM 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, recurre nt, unspeci fied MEREDITHGIHYU N 06/05 [facility] FEE [id number] 1. Diagnos is: ICD-10- CM 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, recurre nt, unspeci fied MEREDITHGIHYU N 06/05 [facility] Outpatient Encounter [id number]/07 [facility] MTMS BY PHARM ADDL 15 MIN [id number] Diagnos is: ICD-10- CM E11.8 Type 2 diabete s mellitu s with unspeci fied complic ations ENE MELENDEZ A 06/17 [facility] OFFICE O/P EST MOD 30 MIN [id number] [id number] Diagnos is: ICD-10- CM 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 tion or abscess w/o bleTOÑO Ruth 06/17 [facility] QNHP OL DIG ASSMT&MGMT 5-10 [id number] [id number] Diagnos is: ICD-10- CM 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) JUAN ALBERTO SANCHEZ 06/17 [facility] Out[facility] Encounter [id number] 06/21 [facility] Outpatient Encounter [id number]/26 [facility] Outpatient Encounter [id number] 07/02 [facility] Out[facility] Encounter [id number] [id number] 07/04 [facility] Out[facility] Encounter [id number] 07/05 [facility] OFF/OP CNSLTJ NEW/EST MOD 40 [id number] Diagnos is: ICD-10- CM R10.0 Acute abdomen JORDI DONALDSON S 07/05 [facility] Out[facility] En[facility] [id number] 07/10 [facility] Out[facility] En[facility] [id number] 07/10 [facility] Out[facility] Encounter [id number] 07/14 [facility] SYNCH AUDIO-ONLY EST SF 10 [id number] [id number] Diagnos is: ICD-10- CM E11.8 Type 2 diabete s mellitu s with unspeci fied complic ations JAYLEN CUELLO CE 07/15 [facility] NQHP OL DIG ASSMT&MGMT 5-10 [id number] [id number] Diagnos is: ICD-10- CM 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) ENE MELENDEZ A 07/16 [facility] NQHP OL DIG ASSMT&MGMT 5-10 [id number] [id number] Diagnos is: ICD-10- CM 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) ENE MELENDEZ A 07/16 [facility] Out[facility] Encounter [id number] [id number]/22 [facility] NQHP OL DIG ASSMT&MGMT 5-10 [id number] [id number] Diagnos is: ICD-10- CM 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 tion or abscess w/o bleedin g SOVEROW, RISTY A 07/29 [facility] Out[facility] En[facility] [id number]/31 [facility] OFF/OP CNSLTJ NEW/EST MOD 40 [id number] [id number] Diagnos is: ICD-10- CM R42 Dizzine ss and giddine ss NATALIA RAO R 08/01 [facility] Outpatient Encounter [id number] 08/02 [facility] (6[facility] NQHP OL DIG ASSMT&MGMT 5-10 [id number] [id number] Diagnos is: ICD-10- CM E11.8 Type 2 diabete s mellitu s with unspeci fied complic ations LUCERO PICKETT N 08/06 [facility] [address] [address] [facility] Outpatient Encounter [id number] 08/08 [facility] Outpatient Encounter [id number] 08/09 [facility] NQHP OL DIG ASSMT&MGMT 5-10 [id number] Diagnos is: ICD-10- CM I10 Essenti al (primar y) hyperte nsion SOVEROW, RISTY A 08/09 [facility] OFFICE O/P EST LOW 20 MIN [id number] Diagnos is: ICD-10- CM 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, unspeci fied TOÑO CAI F 08/16 [facility] OFF/OP EST MAY X REQ PHY/QHP [id number] Diagnos is: ICD-10- CM E11.8 Type 2 diabete s mellitu s with unspeci fied complic ations MARYANNE RAM N 08/16 [facility] Out[facility] Encounter [id number] 08/16 [facility] Out[facility] Encounter [id number] 08/20 [facility] OFFICE O/P EST HI 40 MIN [id number] Diagnos is: ICD-10- CM K45.8 Oth abdomin al hernia without obstruc tion or gangren e JORDI DONALDSON S 08/20 [facility] Outpatient Encounter [id number] Diagnos is: ICD-10- CM E11.8 Type 2 diabete s mellitu s with unspeci fied complic ations MAINE ARIAS E M 08/22 [facility] OFFICE O/P EST MOD 30 MIN [id number] Diagnos is: ICD-10- CM 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) JAYLEN CUELLO CE 08/22 [facility] CONT GLUC MNTR ANALYSIS I&R [id number] Diagnos is: ICD-10- CM E11.8 Type 2 diabete s mellitu s with unspeci fied complic ations JAYLEN CUELLO CE 08/22 [facility] Out[facility] Encounter [id number] 08/22 [facility] Out[facility]counter [id number] 08/23 [facility] Outpatient Encounter [id number] 08/27 [facility] Out[facility]counter [id number] 09/08 [facility] MTMS BY PHARM ADDL 15 MIN [id number] Diagnos is: ICD-10- CM 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, recurre nt, unspeci nealed BRYAN GREENFIELD 09/27 [facility] Social History Combined list of available smoking, tobacco, and other social history from [facility] Defense and [facility] facilities. Social History Type Response Date Comment Source Tobacco smoking status [facility] VA-TOBACCO USE FORMER CIGARETTES 06/17/2024 [facility] History [facility] tobacco use VA-TOBACCO NEVER USED OTHER TYPE 06/17/2024 [facility] History of tobacco use VA-TOBACCO FORMER USER 06/05/2023 [facility] History of tobacco use VA-TOBACCO QUIT 15 YRS OR MORE 06/06/2022 [facility] History of tobacco use VA-TOBACCO QUIT 5 TO < 15 YRS 06/30/2021 [facility] History of tobacco use VA-TOBACCO NEVER USED 05/22/2020 [facility] History of tobacco [...] years ago [facility] History of tobacco use HISTORY OF SMOKING 05/19/2005 [facility] History of tobacco use HISTORY OF SMOKING 05/31/2004 [facility] History of tobacco use HISTORY OF SMOKING 06/04/2003 [facility] History of tobacco use HISTORY OF SMOKING 06/03/2002 [facility] Plan of Care List of future care activities from [facility] facilities. Additional future care activities may be listed in the Assessment and Plan section. Date/Time Care Activity Care Activity Detail Facili ty 10/03/2024 AMBULATORY - MEDICINE AMBULATORY - MEDICI [facility] Advance Directives List of completed, amended, or rescinded Advance Directives on record at [facility] facilities. An actual copy of the Directive is not included. Date Advance Directive Provider Source 06/02/2023 ADVANCE DIRECTIVE JENNIFER QUIROS [facility]
--- OUTSIDE RECORDS SUMMARY | 2024-10-01 11:28 | XMS_ITS | Encounter Summary ---
Author Name [facility] [place] Address [address] [place] [id number] Care Team Providers Care Fiscal Services Manager Name Role Phone TOÑO EPTER Primary Care Provider Unavail able Insurance Providers: [...] [place] MED[place] SUPPLEMEN MASTER PSUED O MEDEX [facility] E Mar 19, 2004 [id number] HOLLIE SHEPHERD PATIENT [place] MED[place] SUPPLEMEN MASTER [facility]EX [place] E Mar 19, 2004 [id number] HOLLIE [place]PH[place] SUPPLE[place] MASTER [facility] [place] E Mar 19, 2004 [id number] [phone] HOLLIE SHEPHERD PATIENT BCBS [facility] MEDICARE SUPPLEMEN MASTER PSUED O MEDEX [place] E Mar 19, 2004 [id number] HOLLIE SHEPHERD PATIENT MEDICARE (WNR) MEDICARE (M) PART B Mar 19, 2004 PART B [id number] [phone] HOLLIE SHEPHERD PATIENT MEDICARE (WNR) MEDICARE (M) PART B Mar 19, 2004 PART B [id number] [phone] HOLLIE SHEPHERD PATIENT MEDICARE (WNR) MEDICARE (M) PART B Mar 19, 2004 PART B [id number] [phone] HOLLIE SHEPHERD PATIENT MEDICARE (WNR) MEDICARE (M) PART A Feb 17, 2003 PART A [id number] CORAHOLLIE SILVA ALD PATIENT MEDICARE (WNR) MEDICARE (M) PART A Feb 17, 2003 PART A [id number] HOLLIE SHEPHERD PATIENT MEDICARE (WNR) MEDICARE (M) PART A Feb 17, 2003 PART A [id number] HOLLIE SHEPHERD PATIENT MEDICARE (WNR) MEDICARE (M) PART A Feb 17, 2003 PART A [id number] [phone] HOLLIE SHEPHERD PATIENT MEDICARE (WNR) MEDICARE (M) PART B Feb 17, 2003 PART B [id number] [phone] HOLLIE SHEPHERD PATIENT MEDICARE (WNR) MEDICARE (M) PART A Feb 17, 2003 PART A [id number] [phone] HOLLIE SHEPHERD PATIENT MEDICARE (WNR) MEDICARE (M) PART B Feb 17, 2003 PART B [id number] HOLLIE SHEPHERD PATIENT Selected Encounter This [...] Bursitis of right shoulder VANWAGNER,WILL MAY F [place] [facility] Plan of Treatment: Future Appointments (+ 6 months) and Future Tests (+/- 45 days) The Plan of Treatment section includes [facility] This section includes future appointments and [...] - MEDICINE [facility] Apr 08, 2024 01:00 PM AMBULATORY - REHAB MEDICIN E [facility] Apr 12, 2024 09:45 AM AMBULATORY - MEDICINE [facility] Apr 16, 2024 10:00 AM AMBULATORY - REHAB MEDICIN E [facility] May 02, 2024 10:00 AM AMBULATORY - REHAB MEDICIN E [facility] May 08, 2024 10:00 AM AMBULATORY - REHAB MEDICIN E [facility] May 29, 2024 11:30 AM AMBULATORY - MEDICINE [facility] Jun 05, 2024 12:00 PM AM[facility]UL[facility] Jun 05, 2024 12:00 PM AMBULATORY - PSYCHIATRY [facility] Jun 17, 2024 10:30 AM AMBULATORY - MEDICINE [facility] Jun 17, 2024 10:31 AM AMBULATORY - MEDICINE [facility] Jun 17, 2024 11:45 AM AMBULATORY - NONE [facility] Jun 21, 2024 11:00 AM AMBULATORY - MEDICINE [facility] Jul 05, 2024 10:00 AM AMBULATORY - MEDICINE [facility] Jul 10, 2024 08:00 AM AMBULATORY - MEDICINE [facility] Jul 10, 2024 01:30 PM AMBULATORY - MEDICINE [facility] Aug 01, 2024 11:00 AM AMBULATORY - MEDICINE [facility] Aug 06, 2024 10:00 AM AMBULATORY - [place]ICINE [place] [facility] Aug 16, 2024 02:00 PM AMBULATORY - MEDICINE [place] [facility] Aug 20, 2024 09:00 AM AMBULATORY - MEDICINE [place] [facility] Vital Signs: All taken on the encounter date This section contains inpatient and outpatient Vital Signs collected on the date of the Encounter. Date/Time Temperature Pulse Blood Pressure Respiratory Rate SP02 Pain Height Weight Body Mass Index Source Apr 02, 2024 02:02 PM 98.4 83 130/82 16 97 8 176 30 [place] [facility] Social History: Smoking Status (Most current) [...] took place. Date/Time Current Smoking Status Comment [facility] Jun 05, 2023 11:00 AM VA-TOBACCO FORMER USER [place] [facility] Tobacco Use History This section includes a history of the smoking, or tobacco-related health factors, that were collected on or before the date of the Encounter. The data comes from the [place] facility where the Encounter took place. Date/Time Smoking Status/Tobac co Use Comment Facility Jun 05, 2023 11:00 AM VA-TOBACCO QUIT 15 YRS OR MORE [facility] Jun 06, 2022 01:00 PM VA-TOBACCO FORMER USER [facility] Jun 06, 2022 01:00 PM VA-TOBACCO QUIT 15 YRS OR MORE [facility] Jun 30, 2021 02:37 PM VA-TOBACCO FORMER USER [facility] Jun 30, 2021 02:37 PM VA-TOBACCO QUIT 5 TO < 15 YRS [facility] May 22, 2020 03:30 PM VA-TOBACCO NEVER USED [facility] May 08, 2018 02:03 PM [facility]AC[facility] May 08, 2018 02:03 PM VA-TOBACCO QUIT 15 YRS OR MORE [facility] November 10, 2017 02:33 PM QUIT TOBACCO USE > 7 YEARS AGO [facility] October 21, 2016 01:55 PM QUIT TOBACCO USE > 7 YEARS AGO [facility] Sep 18, 2015 11:24 AM QUIT TOBACCO USE > 7 YEARS AGO stopped 50 years ago [facility] May 19, 2005 08:01 AM HISTORY OF SMOKING [facility] May 31, 2004 01:02 PM HISTORY OF SMOKING [facility] Jun 04, 2003 07:57 AM HISTORY OF SMOKING [facility] Jun 03, 2002 01:11 PM HISTORY OF SMOKING [facility] Jun 03, 2002 01:11 PM QUIT TOBACCO USE > 7 YEARS AGO [facility] Advance Directives: All historical and current Section Date Range: From patient's date of to the date document was created. This section includes ALL of a patient's completed or amended [place] Advance and Rescinded Directives. The entries below indicate that a directive exists for the patient, but an actual copy is not included with this document. The data comes from all [facility]. Date Advance Directives Provider Source Jun 02, 2023 ADVANCE DIRECTIVE [facility] Radiology Reports: +/- 30 days of [...] the Encounter. The data comes from all [place] treatment facilities. Date/Time Radiology Report Provider Source Apr 02, 2024 02:24 PM SHOULDER,COMPLETE(RIGHT): BEBO SHEPHERD [id number] M Exm Date: APR 02, 2024@14:24 Req Phys: TOÑO PETER Pat Loc: CWM/NO/PACT 3 (Req'g Loc) Img Loc: [facility] 1 Service: Unknown [facility] [address] (Case 50 COMPLETE) SHOULDER,COMPLETE(RIGHT) (RAD Detailed) CPT:87060 Reason for Study: lateral pain after a fall last week. Clinical History: Report Status: Verified Date Reported: APR 02, 2024 Date Verified: APR 02, 2024 Station Mechanic E-Sig:/ES/NAPOLEON ELLIOTT JR Report: Study: AP internally [...] Primary Interpreting Staff: NAPOLEON ELLIOTT JR, Radiologist (Station Mechanic) /EANAPOLEON LUTHER JR [facility] Encounter Notes: All associated encounter notes This section contains the clinical notes associated to the Encounter. Date/Time Encounter Note(s) Provider Source Apr 02, 2024 03:36 PM ADDENDUM: LOCAL TITLE: Addendum STANDARD TITLE: ADDENDUM DATE OF NOTE: APR 02, 2024@15:36:47 ENTRY DATE: APR 02, 2024@15:36:48 AUTHOR: TOÑO PETER EXP COSIGNER: URGENCY: STATUS: COMPLETED Please inform him that xrays does NOT find a fracture. DJD is found, PT consult entered. /thomas/ Toño Peter PA-C STAFF PHYSICIAN TONSORIAL ARTIST Signed: 04/02/2024 15:37 Receipt Acknowledged By: 04/02/2024 15:41 /es/ VIJAYA KENDALL RN REGISTERED NURSE --- Original [...] Elevated PSA 2. Aortic Valve Disorder (SCT 1095195) TAVR 10/03/2023 [facility]. 3. Cerebrovascular disease s/p L carotid [...] Urologist 18. Rosacea 19. Hypertension (SNOMED CT 15825585) 20. Spinal Stenosis * 21. Hyperlipidemia (SNOMED CT 93472986) 22. Osteoarthritis * 23. Lower Back Pain * 24. Vertigo 25. Diabetes mellitus type 2 (SNOMED CT 43897040) 26. Gastroesophageal Reflux Disorder SERVICE CONNECTED % [...] intact. /thomas/ Toño Peter PA-C STAFF PHYSICIAN TONSORIAL ARTIST Signed: 04/02/2024 14:22 TOÑO PETER [place] [facility] Apr 02, 2024 02:19 PM PHYSICIAN TONSORIAL ARTIST NOTE: LOCAL TITLE: RUBY NOTE STANDARD TITLE: PHYSICIAN TONSORIAL ARTIST NOTE DATE OF NOTE: APR 02, 2024@14:19 ENTRY DATE: APR 02, 2024@14:19:18 AUTHOR: TOÑO PETER EXP COSIGNER: URGENCY: STATUS: COMPLETED PA NOTE Has ADDENDA CC/HPI/A/P: 84 year old [...] Elevated PSA 2. Aortic Valve Disorder (SCT 0152141) TAVR 10/03/2023 [facility]. 3. Cerebrovascular disease s/p L carotid [...] Urologist 18. Rosacea 19. Hypertension (SNOMED CT 38603414) 20. Spinal Stenosis * 21. Hyperlipidemia (SNOMED CT 66584101) 22. Osteoarthritis * 23. Lower Back Pain * 24. Vertigo 25. Diabetes mellitus type 2 (SNOMED CT 25270654) 26. Gastroesophageal Reflux Disorder SERVICE CONNECTED % [...] intact. /thomas/ Toño Peter PA-C STAFF PHYSICIAN TONSORIAL ARTIST Signed: 04/02/2024 14:22 04/02/2024 ADDENDUM STATUS: COMPLETED Please inform him that xrays does NOT find a fracture. DJD is found, PT consult entered. /thomas/ Toño Peter PA-C STAFF PHYSICIAN TONSORIAL ARTIST Signed: 04/02/2024 15:37 Receipt Acknowledged By: 04/02/2024 15:41 /thomas/ VIJAYA KENDALL RN REGISTERED NURSE 04/02/2024 ADDENDUM STATUS: COMPLETED Spoke to [place] and relayed message per provider. understood and agreed to plan. /benny KENDALL RN REGISTERED NURSE Signed: 04/02/2024 15:44 TOÑO PETER [place] [facility] Apr 02, 2024 02:06 PM PREVENTIVE MEDICINE NURSING NOTE: LOCAL TITLE: CLINICAL REMINDERS/NURSING STANDARD TITLE: PREVENTIVE MEDICINE NURSING NOTE DATE OF NOTE: APR 02, 2024@14:06 ENTRY DATE: APR 02, 2024@14:06:16 AUTHOR: ODILON SIMPSON COSIGNER: URGENCY: STATUS: COMPLETED Influenza Immunization: The patient has received the seasonal influenza vaccine for the current season at another location. Documented: INFLUENZA, UNSPECIFIED FORMULATION Historical Date Administered: Mar 26, 2024 Series: Booster Outside Location: Outside Healthcare Provider Information Source: FROM OTHER PROVIDER // ODILON SIMPSON LPN Signed: 04/02/2024 14:07 ODLION SIMPSON [facility]
--- OUTSIDE RECORDS SUMMARY | 2024-10-01 11:28 | XMS_ITS | Encounter Summary ---
Author Name [facility] [place] [facility] [place] [facility] [place] [facility] [place] Address [address] [place] [id number] Care Team Providers Care Spray Mixer Name Role Phone TOÑO PETER Primary Care [...] O MEDEX BRONZ E Mar 19, 2004 [id number] HOLLIE SHEPHERD PATIENT BCBS OR MEDICARE SUPPLEMEN MASTER MEDEX BRONZ E Mar 19, 2004 [id number] HOLLIE SHEPHERD PATIENT BCBS OR MEDICARE SUPPLEMEN MASTER MEDEX BRONZ E Mar 19, 2004 [id number] [phone] HOLLIE SHEPHERD PATIENT BCBS [facility] MEDICARE SUPPLEMEN MASTER PSUED O MEDEX BRONZ E Mar 19, 2004 [id number] [phone] HOLLIE SHEPHERD PATIENT MEDICARE (WNR) MEDICARE (M) PART B Mar 19, 2004 PART B [id number] [phone] CORAHOLLIE ALD PATIENT MEDICARE (WNR) MEDICARE (M) PART B Mar 19, 2004 PART B [id number] CORAHOLLIE SILVA ALD PATIENT MEDICARE (WNR) MEDICARE (M) PART B Mar 19, 2004 PART B [id number] [phone] CORAHOLLIE SILVA ALD PATIENT MEDICARE (WNR) MEDICARE (M) PART A Feb 17, 2003 PART A [id number] [phone] CORAHOLLIE SILVA ALD PATIENT MEDICARE (WNR) MEDICARE (M) PART A Feb 17, 2003 PART A [id number] CORAHOLLIE SILVA ALD PATIENT MEDICARE (WNR) MEDICARE (M) PART A Feb 17, 2003 PART A [id number] [phone] CORAHOLLIE SILVA ALD PATIENT MEDICARE (WNR) MEDICARE (M) PART A Feb 17, 2003 PART A [id number] [phone] CORAHOLLIE SILVA ALD PATIENT MEDICARE (WNR) MEDICARE (M) PART B Feb 17, 2003 PART B [id number] [id number] CORAHOLLIE SILVA PATIENT MEDICARE (WNR) MEDICARE (M) PART A Feb 17, 2003 PART A [id number] [phone] HOLLIE SHEPHERD PATIENT MEDICARE (WNR) MEDICARE (M) PART B Feb 17, 2003 PART B [id number] HOLLIE SHEPHERD PATIENT Selected Encounter This section includes the information on record at [place] for the Encounter. Date/Time Encounter Type Encounter Description Reason Provider Source Jul 05, 2024 10:00 AM OFF/OP CNSLTJ NEW/EST MOD 40 GENERAL SURGERY ICD-10-CM R10.0 Acute abdomen JOANA CRENSHAW IHE Encounter Template Text not used by [place] Assessments - Encounter Diagnoses This section includes the primary and secondary diagnoses documented for the Encounter. Date/Time Primary/Secondary Diagnosis Diagnosis Name Provider Source Aug 21, 2024 11:20 AM PRIMARY Acute abdomen JOANA CRENSHAW [facility] [place] [facility] Aug 21, 2024 11:20 AM SECONDARY Chronic vascular disorders of intestine JOANA CRENSHAW [facility] [place] [facility] Aug 21, 2024 11:20 AM SECONDARY Oth abdominal hernia without obstruction or gangrene JOANA CRENSHAW [facility] [place] [facility] Plan of Treatment: Future Appointments (+ 6 months) and Future Tests (+/- 45 days) The Plan of Treatment section includes future care activities for the patient from all [place] [facility]. This section includes future appointments and future orders which are active, pending or scheduled. Future Appointments This section includes appointments that were scheduled to occur 6 months from the date of the Encounter, up to a maximum of 20 appointments. The data comes from all [place] treatment facilities. Appointment Date/Time Appointment Type Appointme nt Facility Name Jul 10, 2024 08:00 AM AMBULATORY - MEDICINE [facility] [place] [facility] Jul 10, 2024 01:30 PM AMBULATORY - MEDICINE [facility] [place] [facility] Aug 01, 2024 11:00 AM AMBULATORY - MEDICINE [facility] [place] [facility] Aug 06, 2024 10:00 AM AMBULATORY - MEDICINE [facility] [place] [facility] Aug 16, 2024 02:00 PM AMBULATORY - MEDICINE [facility] [place] [facility] Aug 20, 2024 09:00 AM AMBULATORY - MEDICINE [facility] [place] [facility] Aug 22, 2024 11:00 AM AMBULATORY - MEDICINE [facility] [place] [facility] Sep 27, 2024 11:00 AM AMBULATORY - PSYCHIATRY [facility] [place] [facility] Oct 03, 2024 02:00 PM AMBULATORY - MEDICINE [facility] [place] [facility] Oct 08, 2024 11:00 AM AMBULATORY - NONE [facility] [place] [facility] November 15, 2024 11:00 AM AMBULATORY - MEDICINE [facility] [place] [facility] Nov 27, 2024 11:00 AM AMBULATORY - MEDICINE [facility] [place] [facility] Active, Pending, and Scheduled Orders This section includes a listing of several types of active, pending, and scheduled orders, including clinic medications orders, diagnostic test orders, procedure orders and consult orders; where the start date of the order is 45 days before the date of the Encounter or 45 days after the date of theEncounter. The data comes from all [place] treatment facilities. Test Date/Time Test Type Test Details Facility Name Jun 10, 2024 11:25 AM Consult Order COMMUNITY CARE-UROLOGY [facility] [place] [facility] Jun 17, 2024 12:00 AM Laboratory - Chemi stry Order FERRITIN BLOOD (SST-SERUM) SP [facility] [place] [facility] Jun 17, 2024 12:00 AM Laboratory - Chemi stry Order IRON & TIBC PANEL BLOOD (SST-SERUM) SP [facility] [place] [facility] Jul 05, 2024 09:52 AM Consult Order COMMUNITY CARE-RHEUMATOLOGY [facility] Lab Results: +/- 30 days of [...] Type Comment Jun 17, 2024 12:15 PM [facility] FERRITIN SERUM Specimen Type: SERUM No comment entered. Ordering Provider: SILVIA PETER Report Released Date/Time: Jun 17, 2024 11:07 AM Reporting Lab: [facility] [place] [facility] [address] [facility] [address] Performing Lab: [place] [facility] [place] [address] [address] FERRITIN 37 ng/mL 20-300 Jun 17, 2024 12:15 PM [facility] IRON & TIBC PANEL SERUM Specimen Type: SERUM No comment entered. Ordering Provider: TOÑO PETER Report Released Date/Time: Jun 17, 2024 11:07 AM Reporting Lab: [facility] [place] [facility] [address] [facility] [phone] Performing Lab: [facility] [place] [address] [address] TIBC 374 ug/dL 204-475 IRON 172 ug/dL H 40-160 Transferrin Saturation 46.0 20.0-50.0 Transferrin (TRF) 283 mg/dL 200-360 Jun 17, 2024 12:15 PM [facility] CBC AND DIFF (AUTO) BLOOD Specimen Type: PUJAO D No comment entered. Ordering Provider: TOÑO PETER Report Released Date/Time: Jun 17, 2024 11:07 AM Reporting Lab: [facility] [address] [facility] [address] Performing Lab: [facility] [address] [facility] [address] WBC 4.91 10*3/uL 4.50-11.00 RBC 4.38 10*6/uL [...] 0.0 0.0-0.0 NRBC, ABS 0.00 10*3/uL 0.00-0.00 Vital Signs: All taken on the encounter date This section contains inpatient and outpatient Vital Signs collected on the date of the Encounter. Date/Time Temperature Pulse Blood Pressure Respiratory Rate SP02 Pain Height Weight Body Mass Index Source Jul 05, 2024 10:58 AM 93/50 10 [facility] [place] [facility] Jul 05, 2024 10:00 AM 98 89 81/48 18 95 7 167.4 28 [facility] [place] [facility] Social History: Smoking Status (Most current) [...] took place. Date/Time Current Smoking Status Comment [facility] Jun 17, 2024 10:31 AM VA-TOBACCO USE FOR TAMMY CIGARETTES [facility] [place] [facility] Tobacco Use History This section includes a history of the smoking, or tobacco-related health factors, that were collected on or before the date of the Encounter. The data comes from the [place] facility where the Encounter took place. Date/Time Smoking Status/Tobac co Use Comment Facility Jun 17, 2024 10:31 AM VA-TOBACCO USE FORMER CIGARETTES [facility] [place] [facility] Jun 05, 2023 11:00 AM VA-TOBACCO FORMER USER [facility] [place] [facility] Jun 05, 2023 11:00 AM VA-TOBACCO QUIT 15 YRS OR MORE [facility] [place] [facility] Jun 06, 2022 01:00 PM VA-TOBACCO FORMER USER [facility] [place] [facility] Jun 06, 2022 01:00 PM VA-TOBACCO QUIT 15 YRS OR MORE [facility] [place] [facility] Jun 30, 2021 02:37 PM VA-TOBACCO FORMER USER [facility] [place] [facility] Jun 30, 2021 02:37 PM VA-TOBACCO QUIT 5 TO < 15 YRS [facility] [place] [facility] May 22, 2020 03:30 PM VA-TOBACCO NEVER USED [facility] [place] [facility] May 08, 2018 02:03 PM VA-TOBACCO FORMER USER [facility] [place] [facility] May 08, 2018 02:03 PM VA-TOBACCO QUIT 15 YRS OR MORE [facility] November 10, 2017 02:33 PM QUIT TOBACCO USE > 7 YEARS AGO [facility] October 21, 2016 01:55 PM QUIT TOBACCO USE > 7 YEARS AGO [facility] Sep 18, 2015 11:24 AM QUIT TOBACCO USE > 7 YEARS AGO stopped 50 years ago [facility] May 19, 2005 08:01 AM HISTORY OF SMOKING [facility] May 31, 2004 01:02 PM HISTORY OF SMOKING [facility] Jun 04, 2003 07:57 AM HISTORY OF SMOKING [facility] Jun 03, 2002 01:11 PM H[facility]ORY OF SMOKING [facility] Jun 03, 2002 01:11 PM QUIT TOBACCO USE > 7 YEARS AGO [facility] Advance Directives: All historical and current Section Date Range: From patient's date of to the date document was created. This section includes ALL of a patient's completed or amended [place] Advance and Rescinded Directives. The entries below indicate that a directive exists for the patient, but an actual copy is not included with this document. The data comes from all [facility]. Date Advance Directives Provider Source Jun 02, 2023 ADVANCE DIRECTIVE [facility]ENNIFER [facility] Radiology Reports: +/- 30 days of [...] the Encounter. The data comes from all [place] treatment facilities. Date/Time Radiology Report Provider Source Jun 17, 2024 11:[address] ABDOMEN AND PELVIS WITH CONTRAST: BEBO SHEPHERD Nisa [id number] M Exm Date: JUN 17, 2024@11:32 Req Phys: VANWAGNER,TOÑO F Pat Loc: [facility] PACT 3 PA (Req'g Loc) Img Loc: [facility]/CT Service: Unknown [facility] [place] [id number] THIS IS AN AMENDED REPORT (Case [id number] COMPLETE) CT ABDOMEN AND PELVIS WITH CONTRA(CT Detailed) CPT:90024 Contrast Media : Non-ionic Iodinated Reason for [...] 23, 2024 Date Verified: AUG 23, 2024 Health Diagnostics Teacher E-Sig:/ES/NAPOLEON ELLIOTT JR Report: Exam: CT of [...] NAPOLEON ELLIOTT JR, Radiologist /NAPOLEON SCHMITZ JR [facility] Encounter Notes: All associated encounter notes This section contains the clinical notes associated to the Encounter. Date/Time Encounter Note(s) Provider Source Jul 06, 2024 07:38 AM ADDENDUM: LOCAL TITLE: Addendum STANDARD TITLE: ADDENDUM DATE OF NOTE: JUL 06, 2024@07:38:03 ENTRY DATE: JUL 06, 2024@07:38:04 AUTHOR: TOÑO PETER COSIGNER: URGENCY: STATUS: COMPLETED PLease contact him, check [facility] for [facility] records etc. /thomas/ Toño Peter PA-C STAFF PHYSICIAN CONTINUUM OF CARE MANAGER Signed: 07/06/2024 07:38 Receipt Acknowledged By: 07/09/2024 08:01 /thomas/ VIJAYA KENDALL RN REGISTERED NURSE --- Original Document --- 07/05/24 CONSULT REPORT/SURGICAL EVALUATION: JUL 05, 2024 BEBO SHEPHERD is a 84 y/o WHITE MALE, previously in [place] [employer] [place] [employer], 1960 TO J[place] 06, 1962 during the [place], who is referred by his PCP with complaints of an abnormal CT scan which purportedly showed a right-sided Spigelian hernia. Of note, prior to my seeing him, the patient felt dizzy and almost passed out. His BP was 81/48. Blood sugar was 220. He denies feeling dizzy or light-headed now. He says that this dizziness is a recurrent problem, and he has an appointment with an ENT doctor on August 01, 2024. He says that when he first gets up, he has to sit on the edge of his bed for a bit before he tries to get up to walk. He usually still feels like he is going to pass out, so he usually sits again for a minute and the sensation passes, and he is usually good for the rest of the day. When first seen, the patient reported that the dizziness had passed. The patient reports that he has been having recurrent upper central abdominal pain. He saw his PCP on 06/17/2024 and at that time, his abdominal exam was benign and he was completely non-tender. He had a CT scan of the abdomen and pelvis that same day. 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 Possible high-grade stenosis at origin of left renal artery. He was referred to this Clinic for the hernia. (Review of the CT scan images shows a right-sided hernia, though to my view, it looks more like a hernia in the right posterolateral abdominal wall, i.e., a lumbar hernia, perhaps.) The patient denies any masses or bulges. He says that he has been getting recurrent abdominal pain for 3 months or so. He gets upper central pain which is usually a burning-type of pain. He has noticed that the pain occurs after eating. It occurs about a half-hour after eating. It is in the center of his abdomen and it does not radiate. He denies N/V, fevers/chills. He has chronic low back pain for which he is seeing a spine and director of sports performance. He says that he has been purposefully losing weight, stating that he was 185 lbs in March, but today he is 164 lbs. He usually skips lunch. However, he says that he has been getting a bit anxious around eating because of the pain. He says that sometimes he does not feel like eating. He often does not feel hungry at all, but he knows that he has to eat. This morning, he had an omelet, toast, and potatoes. He denies any changes in his bowel habits. He moves his bowels twice a day. He denies any diarrhea or blood per rectum. He does report somewhat chronic constipation. He denies dysuria, hematuria, or flank pain. He does report a sense of urgency when he has to urinate. As the patient was speaking with me, his demeanor changed and he looked increasingly uncomfortable, stating that he was getting worsening abdominal pain. He was now wincing and looked ill at ease. The pain was getting worse and he said that he had never had pain like this before . He rates his pain now as a 12 out of 10. He does not recall when he last passed flatus. He denies N/V. Last BM was yesterday and was normal. He denies hematemesis or blood per rectum. He says he has been urinating okay. He denies fevers, chills, CP, palpitations, SOB, or new back pain. He did have an aortic valve replacement two years ago. He has a history of RA and PMR; he is on prednisone, hydroxychloroquine, leflunomide, and tocilizumab. Past Medical History: Active problems - Computerized Problem List is the source for the followin. Elevated PSA 2. Aortic Valve Disorder (SCT 4885465) 3. Cerebrovascular disease 4. Chronic recurrent major depressive disorder 5. Insulin pump present 6. Hypertension 7. Family history of cancer of colon 8. Testicular hypofunction 9. Osteoporosis 10. Major depressive disorder 11. RA - Rheumatoid arthritis 12. History of colonic polyp 13. Diverticular disease of colon 14. Adjustment disorder 15. Hemorrhoids 16. Polymyalgia Rheumatica 17. Microscopic Hematuria 18. Rosacea 19. Hypertension (SNOMED CT 34762028) 20. Spinal Stenosis * 21. Hyperlipidemia (SNOMED CT 31905965) 22. Osteoarthritis * 23. Lower Back Pain * 24. Vertigo 25. Diabetes mellitus type 2 (SNOMED CT [id number]) 26. Gastroesophageal Reflux Disorder Service Connected Disabilities with % Eligibility: [place] LESS THAN 50% VERIFIED Total S/C %: 10 TINNITUS 10% S/C IMPAIRED HEARING 0% S/C Past Surgical History: 1. Laparoscopic cholecystectomy at [facility] 2. Laparoscopic appendectomy 3. Aortic valve replacement 2 years ago ([facility]) 4. 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 Right rotator cuff repair 6. Left SLAP tear surgery (left shoulder) 7. Rodding of right wrist 8. Left carpal fusion surgery 9. Colonoscopies ALLERGIES: PENICILLIN, ZOSYN, METFORMIN MEDICATIONS: Active Outpatient Medications (including Supplies): ATORVASTATIN CALCIUM [...] ACTIVE DAYS HYDROXYCHLOROQUINE SULFATE 200MG TAB TAKE TWO TABLETS BY ACTIVE MOUTH ONCE DAILY 5 DAYS A WEEK, AND 1 TABLET DAILY 2 DAYS A WEEK. INSULIN,ASPART,HUMAN 100 UNIT/ML INJ INJECT 80 UNITS ACTIVE SUBCUTANEOUSLY EVERY DAY DIRECTED FOR USE WITH CONTINUOUS SUBCUTANEOUS INSULIN INFUSION DEVICE Indication: FOR DIABETES KETOCONAZOLE 2% CREAM APPLY A THIN LAYER TOPICALLY TWICE ACTIVE DAILY APPLY TO AFFECTED AREAS ON FACE TWICE DAILY FOR 4 WEEKS, THEN NEEDED Indication: RASH KETOCONAZOLE 2% SHAMPOO SHAMPOO SMALL AMOUNT TOPICALLY ACTIVE TWICE A WEEK NEEDED APPLY FOR 8 WEEKS, THEN NEEDED Indication: SCALP RASH LEFLUNOMIDE 20MG TAB TAKE ONE TABLET BY MOUTH ONCE DAILY ACTIVE MULTIVIT/OPHTH AREDS2/LUTE/ZEAX CAP/TAB TAKE 1 CAPSULE BY ACTIVE MOUTH TWICE DAILY IN THE MORNING AND EVENING, WITH FOOD PREDNISONE 2.5MG TAB TAKE THREE TABLETS BY MOUTH ONCE ACTIVE DAILY TAMSULOSIN HCL 0.4MG CAP TAKE TWO CAPSULES [...] TAB 5MG BY MOUTH TWICE DAILY ACTIVE Social History: Patient is a . His a few years ago of complicated diverticulitis. (Apparently non-operative management did not work and she was too frail for surgery. She ultimately was sent home on hospice.) Patient has 4 grown children. He lives alone in [place]. He has a cat and fish. He is retired. 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 He has a girlfriend. He denies tobacco abuse. He denies EtOH or drug use. MARITAL STATUS - Family History: (+)Colon cancer No family history of melanoma Review of Systems: Constitutional: (-)fevers (-)chills (+)weight loss (+)decreased appetite Eyes: (-)diplopia (-)red eye (-)discharge (-)pain (+)left eye blurry due to macular degeneration. He says he gets shots in his eye. 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 Repeat BP is 93/53 about 45 minutes later. O2 sat: 95% on RA at REST EXAM: General: Alert, anxious, pleasant, conversant, looks a little uncomfortable, but then became increasingly uncomfortable with increasing abdominal pain HEENT: NC/AT. He is wearing glasses. Anicteric. EOMI. Mucous membranes a little dry, conjunctivae are clear. He is wearing hearing aids. He has a jensen and mustache. Lungs: Clear anteriorly. No rales or wheezes. No pleuritic pain. Heart: RRR. No definite murmurs heard. Abdomen: Obese, protuberant. No definite incisions seen. Small umbilical hernia, non-tender. There is marked moderate diffuse tenderness with the lightest palpation, especially in the upper central abdomen, with involuntary guarding. There is cough tenderness. He has an insulin pump in the right mid abdomen, with no erythema. There is no skin discoloration, erythema, or bruising. Patient was not examined for other hernias anteriorly or posterolaterally given his worsening abdominal pain and changing exam/status. Ext: Right wrist is unable to flex or extend due to nat in place. Steel Fixer strength is good. Left wrist can flex slightly. Steel Fixer strength is 4+/5. Non-tender. Skin: Warm, dry. No clamminess or diaphoresis. No redness, rashes, or ulcers noted. Psych: AAO x3. Mood is calm, affect is appropriate. Labs/Rads: Collection DT Spec WBC HGB HCT PLT K+/Pot Sodium HGBA1c 06/17/2024 12:15 BLOOD 4.91 13.2 39.7 112 L 06/04/2024 10:27 SERUM 3.8 140 06/04/2024 10:27 BLOOD 6.5H 05/08/2024 11:24 SERUM 3.5 142 05/08/2024 11:24 BLOOD 4.08 L 13.1 39.9 130 L Collection DT Spec GLUCOSE CREATIN AST ALT T BILI ALK SARWAT CHOL 06/04/2024 10:27 SERUM 187 H 0.97 20 19 1.3 H 78 151 05/08/2024 11:24 SERUM 216 H 0.84 20 24 1.1 71 142 10/10/2023 15:42 SERUM 29 29 1.3 H 89 10/10/2023 15:41 SERUM 172 H 1.26 96 08/03/2023 08:05 SERUM 116 H 0.89 107 Collection DT Spec LDL-c HDL TRIG TSH B12 SR- VIT [id number] 06/04/2024 10:27 SERUM 1.78 06/04/2024 10:27 SERUM 73 49 146 05/08/2024 11:24 SERUM 64 42 179 H 05/08/2024 11:23 SERUM 46 10/10/2023 15:41 SERUM 44 32 L 101 41 Collection DT Spec RBC/HPF 09/27/2022 12:14 URINE 0-2 10/30/2018 14:02 URINE 3-5 10/18/2017 07:35 URINE 3-5 09/20/2016 08:19 URINE 0-5 10/26/2013 09:17 URINE 6-10 H Other Studies and Medical Notes: CT ABDOMEN AND PELVIS WITH CONTRAST Proc Ord: CT ABDOMEN W&W/O CONT Exm Date: JUN 17, 2024@11:32 Req Phys: TOÑO PETER Loc: [facility]/NO/PACT 3 (Req'g Loc) Img Loc: [facility]/CT Service: [place] [address] (Case 38 COMPLETE) CT ABDOMEN AND PELVIS WITH CONTRA(CT Detailed) CPT:70978 Contrast Media : Non-ionic Iodinated Reason for [...] 17, 2024 Date Verified: JUN 17, 2024 Health Diagnostics Teacher E-Sig:/THOMAS/EVGENY IGNACIO Report: Exam: CT of abdomen and [...] Primary Interpreting Staff: EVGENY IGNACIO, Staff Physician (Health Diagnostics Teacher) /KAYLEIGH Outpatient Medication Reconciliation: NO DISCREPANCIES FOUND other than those listed in note. The patient's medication list/medication history to include Active local VA prescriptions, Active remote VA (dispensed from another [place] or [facility] facility) prescriptions, local non-VA medications,recently VA prescriptions (90-180 days), recently discontinued VA prescriptions (90-180 days), and pending Medication Orders where relevant (e.g., patient is seen by multiple providers on the same day) was compared with CPRS and reviewed with the patient and reconciled. Any changes in medications and any medications prescribed by this provider and discontinued are documented in this note. Medications not prescribed by this provider will be addressed by pt's PCM or appropriate specialty provider. MRP - Medication Reconciliation Alphabetized list of outpatient Rx's, inpatient orders, remote and Non-VA meds Legend: OPT = VA issued outpatient prescription, INP = VA issued inpatient order Non-VA Meds Last Documented On: Oct 09, 2023 Non VA ACETAMINOPHEN TAB TAKE BY MOUTH ONCE DAILY NEEDED Non VA AMLODIPINE BESYLATE 2.5MG TAB TAKE ONE TABLET BY MOUTH ONCE DAILY Non VA ASPIRIN 81MG EC TAB TAKE ONE TABLET BY MOUTH ONCE DAILY OPT ATORVASTATIN CALCIUM 80MG TAB (Status = ACTIVE) TAKE ONE-HALF TABLET BY MOUTH ONCE DAILY Last Released: 06/25/24 Days Supply: 90 Rx Expiration Date: 02/27/25 Refills Remainin OPT CALCIUM 200MG (CA CITRATE-950MG) TAB (Status = ACTIVE) TAKE FOUR TABLETS BY MOUTH TWICE DAILY Last Released: 05/08/24 Days Supply: 90 Rx Expiration Date: 11/27/24 Refills Remainin Non VA CHOLECALCIF 50MCG (D3-2,000UNIT) TAB TAKE ONE TABLET BY MOUTH ONCE DAILY Aug 11, 2020 Non-VA medication not recommended by VA provider. Non VA CYCLOBENZAPRINE HCL 10MG TAB TAKE ONE TABLET BY MOUTH TWICE DAILY Non VA FUROSEMIDE 20MG TAB TAKE ONE TABLET BY MOUTH ONCE DAILY OPT GABAPENTIN 600MG TAB (Status = ACTIVE) TAKE ONE TABLET BY MOUTH THREE TIMES A DAY Last Released: Days Supply: 90 Rx Expiration Date: 09/30/24 Refills Remainin OPT GLUCOSE 4GM CHEW TAB (Status = ACTIVE) CHEW ONE TABLET BY MOUTH EVERY DAY NEEDED FOR LOW BLOOD SUGAR Last Released: 04/08/24 Days Supply: 30 Rx Expiration Date: 04/03/25 Refills Remainin OPT GLUCOSE SENSOR DEXCOM G7 (Status = ACTIVE) USE 1 SENSOR DIRECTED EVERY 10 DAYS Last Released: 06/25/24 Days Supply: 90 Rx Expiration Date: 06/18/25 Refills Remainin OPT HYDROXYCHLOROQUINE SULFATE 200MG TAB (Status = ACTIVE) TAKE TWO TABLETS BY MOUTH ONCE DAILY 5 DAYS A WEEK, AND 1 TABLET DAILY 2 DAYS A WEEK. Last Released: 05/23/24 Days Supply: 90 Rx Expiration Date: 08/19/24 Refills Remainin OPT INSULIN,ASPART,HUMAN 100 UNIT/ML INJ (Status = ACTIVE) INJECT 80 UNITS SUBCUTANEOUSLY EVERY DAY DIRECTED FOR USE WITH CONTINUOUS SUBCUTANEOUS INSULIN INFUSION DEVICE Last Released: 06/04/24 Days Supply: 90 Rx Expiration Date: 09/01/24 Refills Remainin OPT KETOCONAZOLE 2% CREAM (Status = ACTIVE) APPLY A THIN LAYER TOPICALLY TWICE DAILY RASH APPLY TO AFFECTED AREAS ON FACE TWICE DAILY FOR 4 WEEKS, THEN NEEDED Last Released: 07/21/23 Days Supply: 30 Rx Expiration Date: 07/13/24 Refills Remainin OPT KETOCONAZOLE 2% SHAMPOO (Status = ACTIVE) SHAMPOO SMALL AMOUNT TOPICALLY TWICE A WEEK NEEDED APPLY FOR 8 WEEKS, THEN NEEDED Last Released: 06/25/24 Supply: 30 Rx Expiration Date: 07/13/24 Refills Remainin OPT LEFLUNOMIDE 20MG TAB (Status = ACTIVE) TAKE ONE TABLET BY MOUTH ONCE DAILY Last Released: 05/02/24 Days Supply: 90 Rx Expiration Date: 07/29/24 Refills Remainin Non VA LOSARTAN 100MG TAB TAKE ONE TABLET BY MOUTH DAILY OPT MULTIVIT/OPHTH AREDS2/LUTE/ZEAX CAP/TAB (Status = ACTIVE) TAKE 1 CAPSULE BY MOUTH TWICE DAILY IN THE MORNING AND EVENING, WITH FOOD Last Released: 06/25/24 Supply: 60 Rx Expiration Date: 04/30/25 Refills Remainin Non VA OMEPRAZOLE 20MG EC CAP TAKE 1 CAPSULE BY MOUTH EVERY DAY Non VA PILOCARPINE HCL 5MG TAB TAKE ONE TABLET BY MOUTH TWICE DAILY Dec 04, 2020 Non-VA medication not recommended by VA provider. OPT PREDNISONE 2.5MG TAB (Status = ACTIVE) TAKE THREE TABLETS BY MOUTH ONCE DAILY Last Released: 06/25/24 Days Supply: 30 Rx Expiration Date: 04/30/25 Refills Remainin OPT TAMSULOSIN HCL 0.4MG CAP (Status = ACTIVE) TAKE TWO CAPSULES BY MOUTH AT BEDTIME Last Released: 04/27/24 Days Supply: 90 Rx Expiration Date: 01/22/25 Refills Remainin OPT TOCILIZUMAB 162MG/0.9ML INJ SYR 0.9ML (Status = ACTIVE) INJECT 162MG SUBCUTANEOUSLY EVERY 2 WEEKS Last Released: 06/06/24 Days Supply: 28 Rx Expiration Date: 04/12/25 Refills Remainin Other medications previously dispensed in the last year: OPT CITALOPRAM HYDROBROMIDE 10MG TAB (DISCONTINUED BY PROVIDER/90 Days Supply Last Released: 05/28/24) TAKE ONE-HALF TABLET BY MOUTH ONCE DAILY FOR DEPRESSION AND ANXIETY OPT CITALOPRAM HYDROBROMIDE 20MG TAB (DISCONTINUED (EDIT)/ Days Supply Last Released: 12/20/23) TAKE ONE-HALF TABLET BY MOUTH ONCE DAILY FOR MOOD OPT DENOSUMAB 60MG/ML INJ SYRINGE 1ML ( Days Supply Last Released: 05/07/24) INJECT 60MG/1ML SUBCUTANEOUSLY ONE TIME FOR OSTEOPOROSIS OPT LEFLUNOMIDE 10MG TAB (DISCONTINUED/ Days Supply Last Released: 03/26/24) TAKE ONE TABLET BY MOUTH ONCE DAILY FOR 14 DAYS, THEN TAKE TWO TABLETS ONCE DAILY OPT NEEDLE 18G 1IN ( Days Supply Last Released: 07/21/23) USE 1 NEEDLE EVERY 7 DAYS FOR INJECTION OPT NEEDLE 23G 1IN ( Days Supply Last Released: 07/20/23) USE 1 NEEDLE EVERY 7 DAYS FOR INJECTION OPT OXYCODONE HCL 5MG TAB NOT SA ( Supply Last Released: 02/21/24) TAKE ONE TABLET BY MOUTH EVERY 6 HOURS NEEDED FOR SEVERE PAIN OPT PREDNISONE 10MG TAB (DISCONTINUED/ Days Supply Last Released: 04/18/24) TAKE ONE TABLET BY MOUTH ONCE DAILY OPT PREDNISONE 1MG TAB (DISCONTINUED Days Supply Last Released: 03/01/24) TAKE FOUR TABLETS BY MOUTH ONCE DAILY OPT SYRINGE 1ML LUER LOCK TIP ( Supply Last Released: 07/13/23) USE 1 SYRINGE EVERY 7 DAYS Assessment/Plan JUL 05, 2024: This is an 84 year old man with IDDM, hx of AVR, GERD, rheumatoid arthritis, and PMR, who is on prednisone and other immunosuppressants, who was referred to this Clinic with a history of abdominal pain and a purported right-sided Spigelian hernia seen on CT scan. However, on evaluation today, the patient was hypotensive and got increasingly severe diffuse abdominal pain and tenderenss. His abdominal exam is very concerning as his pain is now severe and he is exquisitely tender with even the lightest touch. He has involuntary guarding. He has an acute abdomen. The patient is s/p appy and cholecystectomy. Given his history, symptoms, and previous CT scan findings, doubt that his pain is related to his hernia (which showed fat herniating out posterolaterally on the right side). The patient's CT scan of 06/17/2024 did not show any acute findings. Although his pain now does not appear to be out of proportion to his exam, his exam is very concerning. He is exquisitely tender with marked involuntary guarding, and this may well be related to possibly mesenteric ischemia. Other possibilities include complicated diverticulitis or ulcer disease. Given his evolving worsening presentation and acute abdomen, my recommendation is for the patient to go emergently to the hospital. Emergency services was quickly contacted. The patient's BP did improve, though it was still low. Prior to EMS' arrival, the patient initially stated that he did not want to go to the hospital, and he wanted to drive himself home. However, this would not be advised at all. Ultimately, as the pain was steady and getting worse, he did agree that he should go. He indicated that his previous episodes of pain were nowhere near as bad as this and they did not last this long. Emergency services did arrive and he was expeditiously evaluated and ultimately brought by paramedics to [facility] (patient's choice). 45-60 minutes were spent on reviewing the pertinent medical records, obtaining a history from the patient, performing an exam and assessment, counseling, answering questions, and shared decision-making. Joana Crenshaw MD Staff General Surgeon Medication Reconciliation: Outpatient: Has the patient been [...] Remote Allergy/ADR Data available for this patient [facility] [place] [facility] METFORMIN [facility] [place] [facility] PENICILLIN [facility] [place] [facility] ZOSYN Med Recon NoGlossary (Tool #1) INCLUDED IN THIS LIST: Alphabetical list of active outpatient prescriptions dispensed from this MA (local) and dispensed from another MA or [...] the patient into personal health records (i.e. [facility]) are NOT included in this list. Non-VA medications documented outside this MA, remote inpatient orders (regardless of status) and [...] ONE-HALF TABLET BY MOUTH ONCE DAILY Rx# [id number] Last Released: 06/25/24 Qty/Days Supply: Rx Expiration Date: 02/27/25 Refills Remainin Indication: FOR HIGH CHOLESTEROL OUTPT CALCIUM 200MG (CA CITRATE-950MG) TAB (Status = Active) TAKE FOUR TABLETS BY MOUTH TWICE DAILY Rx# [id number] Last Released: 05/08/24 Qty/Days Supply: Rx Expiration Date: 11/27/24 Refills Remainin Indication: FOR OSTEOPOROSIS Non-VA CHOLECALCIF 50MCG (D3-2,000UNIT) TAB TAKE ONE TABLET BY MOUTH ONCE DAILY Aug 11, 2020 Non-VA medication not recommended by VA provider. OUTPT CITALOPRAM HYDROBROMIDE 10MG TAB (Status = Discontinued) TAKE ONE-HALF TABLET BY MOUTH ONCE DAILY FOR DEPRESSION AND ANXIETY Rx# [id number] Last Released: 05/28/24 Qty/Days Supply: Rx Expiration Date: 02/28/25 Refills Remainin Indication: FOR MAJOR DEPRESSIVE DISORDER Non-VA CYCLOBENZAPRINE HCL 10MG TAB TAKE ONE TABLET BY MOUTH TWICE DAILY OUTPT DENOSUMAB 60MG/ML INJ SYRINGE 1ML (Status = ) INJECT 60MG/1ML SUBCUTANEOUSLY ONE TIME FOR OSTEOPOROSIS Rx# [id number] Last Released: 05/07/24 Qty/Days Supply: 07/18 Rx Expiration Date: 05/30/24 Refills Remainin Indication: FOR OSTEOPOROSIS Non-VA FUROSEMIDE 20MG TAB TAKE ONE TABLET BY MOUTH ONCE DAILY OUTPT GABAPENTIN 600MG TAB (Status = Active) TAKE ONE TABLET BY MOUTH THREE TIMES A DAY Rx# [id number] Last Released: Qt Supply: Rx Expiration Date: 09/30/24 Refills Remainin OUTPT GLUCOSE 4GM CHEW TAB (Status = Active) CHEW ONE TABLET BY MOUTH EVERY DAY NEEDED FOR LOW BLOOD SUGAR Rx# [id number] Last Released: 04/08/24 Qty/Days Supply: Rx Expiration Date: 04/03/25 Refills Remainin Indication: FOR LOW BLOOD SUGAR OUTPT HYDROXYCHLOROQUINE SULFATE 200MG TAB (Status = Active) TAKE TWO TABLETS BY MOUTH ONCE DAILY 5 DAYS A WEEK, AND 1 TABLET DAILY 2 DAYS A WEEK. Rx# [id number] Last Released: 05/23/24 Qty/Days Supply: Rx Expiration Date: 08/19/24 Refills Remainin OUTPT INSULIN,ASPART,HUMAN 100 UNIT/ML INJ (Status = ) INJECT 80 UNITS SUBCUTANEOUSLY EVERY DAY DIRECTED FOR USE WITH CONTINUOUS SUBCUTANEOUS INSULIN INFUSION DEVICE Rx# [id number] Last Released: 01/24/24 Qty/Days Supply: Rx Expiration Date: 04/17/24 Refills Remainin OUTPT INSULIN,ASPART,HUMAN 100 UNIT/ML INJ (Status = Active) INJECT 80 UNITS SUBCUTANEOUSLY EVERY DAY DIRECTED FOR USE WITH CONTINUOUS SUBCUTANEOUS INSULIN INFUSION DEVICE Rx# [id number] Last Released: 06/04/24 Qty/Days Supply: Rx Expiration Date: 09/01/24 Refills Remainin Indication: FOR DIABETES OUTPT KETOCONAZOLE 2% CREAM (Status = Active) APPLY A THIN LAYER TOPICALLY TWICE DAILY RASH APPLY TO AFFECTED AREAS ON FACE TWICE DAILY FOR 4 WEEKS, THEN NEEDED Rx# [id number] Last Released: 07/21/23 Qty/Days Supply: 120 Rx Expiration Date: 07/13/24 Refills Remainin Indication: RASH OUTPT KETOCONAZOLE 2% SHAMPOO (Status = Active) SHAMPOO SMALL AMOUNT TOPICALLY TWICE A WEEK NEEDED APPLY FOR 8 WEEKS, THEN NEEDED Rx# [id number] Last Released: 06/25/24 Qty/Days Supply: 240 Rx Expiration Date: 07/13/24 Refills Remainin Indication: SCALP RASH OUTPT LEFLUNOMIDE 10MG TAB (Status = Discontinued) TAKE ONE TABLET BY MOUTH ONCE DAILY FOR 14 DAYS, THEN TAKE TWO TABLETS ONCE DAILY Rx# [id number] Last Released: 03/26/24 Qty/Days Supply: 6030 Rx Expiration Date: 03/26/25 Refills Remainin OUTPT LEFLUNOMIDE 20MG TAB (Status = Active) TAKE ONE TABLET BY MOUTH ONCE DAILY Rx# [id number] Last Released: 05/02/24 Qty/Days Supply: 90 Rx Expiration Date: 07/29/24 Refills Remainin Non-VA LOSARTAN 100MG TAB TAKE ONE TABLET BY MOUTH DAILY OUTPT MULTIVIT/OPHTH AREDS2/LUTE/ZEAX CAP/TAB (Status = Active) TAKE 1 CAPSULE BY MOUTH TWICE DAILY IN THE MORNING AND EVENING, WITH FOOD Rx# [id number] Last Released: 06/25/24 Qty/Days Supply: 120/60 Rx Expiration Date: 04/30/25 Refills Remainin Non-VA OMEPRAZOLE 20MG EC CAP TAKE 1 CAPSULE BY MOUTH EVERY DAY Non-VA PILOCARPINE HCL 5MG TAB TAKE ONE TABLET BY MOUTH TWICE DAILY Dec 04, 2020 Non-VA medication not recommended by VA provider. OUTPT PREDNISONE 10MG TAB (Status = Discontinued) TAKE ONE TABLET BY MOUTH ONCE DAILY Rx# [id number] Last Released: 04/18/24 Qty/Days Supply: 90/ Rx Expiration Date: 07/09/24 Refills Remainin OUTPT PREDNISONE 1MG TAB (Status = Discontinued) TAKE FOUR TABLETS BY MOUTH ONCE DAILY Rx# [id number] Last Released: 03/01/24 Qty/Days Supply: 12030 Rx Expiration Date: 02/26/25 Refills Remainin OUTPT PREDNISONE 2.5MG TAB (Status = Active) TAKE THREE TABLETS BY MOUTH ONCE DAILY Rx# [id number] Last Released: 06/25/24 Qty/Days Supply: 9030 Rx Expiration Date: 04/30/25 Refills Remainin OUTPT TAMSULOSIN HCL 0.4MG CAP (Status = Active) TAKE TWO CAPSULES BY MOUTH AT BEDTIME Rx# [id number] Last Released: 04/27/24 Qty/Days Supply: 180/ Rx Expiration Date: 01/22/25 Refills Remainin OUTPT TOCILIZUMAB 162MG/0.9ML INJ SYR 0.9ML (Status = Discontinued) INJECT 162MG SUBCUTANEOUSLY EVERY 2 WEEKS Rx# [id number] Last Released: 03/14/24 Qty/Days Supply: 08/16 Rx Expiration Date: 11/17/24 Refills Remainin OUTPT TOCILIZUMAB 162MG/0.9ML INJ SYR 0.9ML (Status = Active) INJECT 162MG SUBCUTANEOUSLY EVERY 2 WEEKS Rx# [id number] Last Released: 06/06/24 Qty/Days Supply: 08/16 Rx Expiration Date: 04/12/25 Refills Remainin SUPPLIES OUTPT GLUCOSE SENSOR DEXCOM G7 (Status = Active) USE 1 SENSOR DIRECTED EVERY 10 DAYS Rx# [id number] Last Released: 06/25/24 Qty/Days Supply: Rx Expiration Date: 06/18/25 Refills Remainin OUTPT NEEDLE 18G 1IN (Status = ) USE 1 NEEDLE EVERY 7 DAYS FOR INJECTION Rx# [id number] Last Released: 07/21/23 Qty/Days Supply: Rx Expiration Date: 04/27/24 Refills Remainin OUTPT NEEDLE 23G 1IN (Status = ) USE 1 NEEDLE EVERY 7 DAYS FOR INJECTION Rx# [id number] Last Released: 07/20/23 Qty/Days Supply: Rx Expiration Date: 04/27/24 Refills Remainin OUTPT SYRINGE 1ML LUER LOCK TIP (Status = ) USE 1 SYRINGE EVERY 7 DAYS Rx# [id number] Last Released: 07/13/23 Qty/Days Supply: Rx Expiration Date: 04/27/24 Refills Remainin /es/ JOANA CRENSHAW MD SURGEON Signed: 07/05/2024 23:02 TOÑO PETER [facility] [place] [facility] Jul 05, 2024 11:21 AM NURSING OUTPATIENT NOTE: LOCAL TITLE: NURSING/SPECIALTY CLINIC NOTE STANDARD TITLE: NURSING OUTPATIENT NOTE DATE OF NOTE: JUL 05, 2024@11:21 ENTRY DATE: JUL 05, 2024@11:22:05 AUTHOR: MACI CERVANTES EXP COSIGNER: URGENCY: STATUS: COMPLETED was in general surgery clinic today to have hernia evaluated, his BP was 80's/40's and he had a near syncopal episode, also complaining of severe abdominal pain that was getting worse, states its a 05/28. BP rechecked and was 93/50. 911 called, vet left via ambulance at 11:08am. /thomas/ Maci Cervantes RN Med Rehab Signed: 07/05/2024 11:26 MACI CERVANTES [facility] [place] [facility] Jul 05, 2024 09:39 AM SURGERY CONSULT: LOCAL TITLE: CONSULT REPORT/SURGICAL EVALUATION STANDARD TITLE: SURGERY CONSULT DATE OF NOTE: JUL 05, 2024@09:39 ENTRY DATE: JUL 05, 2024@09:39:58 AUTHOR: JOANA CRENSHAW EXP COSIGNER: URGENCY: STATUS: COMPLETED CONSULT REPORT/SURGICAL EVALUATION Has ADDENDA JUL 05, 2024 BEBO SHEPHERD is a 84 y/o WHITE MALE, previously in the [employer] FROM [employer], 1960 TO [employer] 06, 1962 during the [place], who is referred by his PCP with complaints of an abnormal CT scan which purportedly showed a right-sided Spigelian hernia. Of note, prior to my seeing him, the patient felt dizzy and almost passed out. His BP was 81/48. Blood sugar was 220. He denies feeling dizzy or light-headed now. He says that this dizziness is a recurrent problem, and he has an appointment with an ENT doctor on August 01, 2024. He says that when he first gets up, he has to sit on the edge of his bed for a bit before he tries to get up to walk. He usually still feels like he is going to pass out, so he usually sits again for a minute and the sensation passes, and he is usually good for the rest of the day. When first seen, the patient reported that the dizziness had passed. The patient reports that he has been having recurrent upper central abdominal pain. He saw his PCP on 06/17/2024 and at that time, his abdominal exam was benign and he was completely non-tender. He had a CT scan of the abdomen and pelvis that same day. 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 Possible high-grade stenosis at origin of left renal artery. He was referred to this Clinic for the hernia. (Review of the CT scan images shows a right-sided hernia, though to my view, it looks more like a hernia in the right posterolateral abdominal wall, i.e., a lumbar hernia, perhaps.) The patient denies any masses or bulges. He says that he has been getting recurrent abdominal pain for 3 months or so. He gets upper central pain which is usually a burning-type of pain. He has noticed that the pain occurs after eating. It occurs about a half-hour after eating. It is in the center of his abdomen and it does not radiate. He denies N/V, fevers/chills. He has chronic low back pain for which he is seeing a spine and director of sports performance. He says that he has been purposefully losing weight, stating that he was 185 lbs in March, but today he is 164 lbs. He usually skips lunch. However, he says that he has been getting a bit anxious around eating because of the pain. He says that sometimes he does not feel like eating. He often does not feel hungry at all, but he knows that he has to eat. This morning, he had an omelet, toast, and potatoes. He denies any changes in his bowel habits. He moves his bowels twice a day. He denies any diarrhea or blood per rectum. He does report somewhat chronic constipation. He denies dysuria, hematuria, or flank pain. He does report a sense of urgency when he has to urinate. As the patient was speaking with me, his demeanor changed and he looked increasingly uncomfortable, stating that he was getting worsening abdominal pain. He was now wincing and looked ill at ease. The pain was getting worse and he said that he had never had pain like this before . He rates his pain now as a 12 out of 10. He does not recall when he last passed flatus. He denies N/V. Last BM was yesterday and was normal. He denies hematemesis or blood per rectum. He says he has been urinating okay. He denies fevers, chills, CP, palpitations, SOB, or new back pain. He did have an aortic valve replacement two years ago. He has a history of RA and PMR; he is on prednisone, hydroxychloroquine, leflunomide, and tocilizumab. Past Medical History: Active problems - Computerized Problem List is the source for the followin. Elevated PSA 2. Aortic Valve Disorder (SCT 6031527) 3. Cerebrovascular disease 4. Chronic recurrent major depressive disorder 5. Insulin pump present 6. Hypertension 7. Family history of cancer of colon 8. Testicular hypofunction 9. Osteoporosis 10. Major depressive disorder 11. RA - Rheumatoid arthritis 12. History of colonic polyp 13. Diverticular disease of colon 14. Adjustment disorder 15. Hemorrhoids 16. Polymyalgia Rheumatica 17. Microscopic Hematuria 18. Rosacea 19. Hypertension (SNOMED CT 70628060) 20. Spinal Stenosis * 21. Hyperlipidemia (SNOMED CT 40935119) 22. Osteoarthritis * 23. Lower Back Pain * 24. Vertigo 25. Diabetes mellitus type 2 (SNOMED CT 23141854) 26. Gastroesophageal Reflux Disorder Service Connected Disabilities with % Eligibility: SC LESS THAN 50% VERIFIED Total S/C %: 10 TINNITUS 10% S/C IMPAIRED HEARING 0% S/C Past Surgical History: 1. Laparoscopic cholecystectomy at [facility] 2. Laparoscopic appendectomy 3. Aortic valve replacement 2 years ago ([facility]) 4. 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 Right rotator cuff repair 6. Left SLAP tear surgery (left shoulder) 7. Rodding of right wrist 8. Left carpal fusion surgery 9. Colonoscopies ALLERGIES: PENICILLIN, ZOSYN, METFORMIN MEDICATIONS: Active Outpatient Medications (including Supplies): ATORVASTATIN CALCIUM [...] ACTIVE DAYS HYDROXYCHLOROQUINE SULFATE 200MG TAB TAKE TWO TABLETS BY ACTIVE MOUTH ONCE DAILY 5 DAYS A WEEK, AND 1 TABLET DAILY 2 DAYS A WEEK. INSULIN,ASPART,HUMAN 100 UNIT/ML INJ INJECT 80 UNITS ACTIVE SUBCUTANEOUSLY EVERY DAY DIRECTED FOR USE WITH CONTINUOUS SUBCUTANEOUS INSULIN INFUSION DEVICE Indication: FOR DIABETES KETOCONAZOLE 2% CREAM APPLY A THIN LAYER TOPICALLY TWICE ACTIVE DAILY APPLY TO AFFECTED AREAS ON FACE TWICE DAILY FOR 4 WEEKS, THEN NEEDED Indication: RASH KETOCONAZOLE 2% SHAMPOO SHAMPOO SMALL AMOUNT TOPICALLY ACTIVE TWICE A WEEK NEEDED APPLY FOR 8 WEEKS, THEN NEEDED Indication: SCALP RASH LEFLUNOMIDE 20MG TAB TAKE ONE TABLET BY MOUTH ONCE DAILY ACTIVE MULTIVIT/OPHTH AREDS2/LUTE/ZEAX CAP/TAB TAKE 1 CAPSULE BY ACTIVE MOUTH TWICE DAILY IN THE MORNING AND EVENING, WITH FOOD PREDNISONE 2.5MG TAB TAKE THREE TABLETS BY MOUTH ONCE ACTIVE DAILY TAMSULOSIN HCL 0.4MG CAP TAKE TWO CAPSULES [...] TAB 5MG BY MOUTH TWICE DAILY ACTIVE Social History: Patient is a . His a few years ago of complicated diverticulitis. (Apparently non-operative management did not work and she was too frail for surgery. She ultimately was sent home on hospice.) Patient has 4 grown children. He lives alone in [place]. He has a cat and fish. He is retired. 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 He has a girlfriend. He denies tobacco abuse. He denies EtOH or drug use. MARITAL STATUS - Family History: (+)Colon cancer No family history of melanoma Review of Systems: Constitutional: (-)fevers (-)chills (+)weight loss (+)decreased appetite Eyes: (-)diplopia (-)red eye (-)discharge (-)pain (+)left eye blurry due to macular degeneration. He says he gets shots in his eye. 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 Repeat BP is 93/53 about 45 minutes later. O2 sat: 95% on RA at REST EXAM: General: Alert, anxious, pleasant, conversant, looks a little uncomfortable, but then became increasingly uncomfortable with increasing abdominal pain HEENT: NC/AT. He is wearing glasses. Anicteric. EOMI. Mucous membranes a little dry, conjunctivae are clear. He is wearing hearing aids. He has a jensen and mustache. Lungs: Clear anteriorly. No rales or wheezes. No pleuritic pain. Heart: RRR. No definite murmurs heard. Abdomen: Obese, protuberant. No definite incisions seen. Small umbilical hernia, non-tender. There is marked moderate diffuse tenderness with the lightest palpation, especially in the upper central abdomen, with involuntary guarding. There is cough tenderness. He has an insulin pump in the right mid abdomen, with no erythema. There is no skin discoloration, erythema, or bruising. Patient was not examined for other hernias anteriorly or posterolaterally given his worsening abdominal pain and changing exam/status. Ext: Right wrist is unable to flex or extend due to nat in place. Steel Fixer strength is good. Left wrist can flex slightly. Steel Fixer strength is 4+/5. Non-tender. Skin: Warm, dry. No clamminess or diaphoresis. No redness, rashes, or ulcers noted. Psych: AAO x3. Mood is calm, affect is appropriate. Labs/Rads: Collection DT Spec WBC HGB HCT PLT K+/Pot Sodium HGBA1c 06/17/2024 12:15 BLOOD 4.91 13.2 39.7 112 L 06/04/2024 10:27 SERUM 3.8 140 06/04/2024 10:27 BLOOD 6.5H 05/08/2024 11:24 SERUM 3.5 142 05/08/2024 11:24 BLOOD 4.08 L 13.1 39.9 130 L Collection DT Spec GLUCOSE CREATIN AST ALT T BILI ALK SARWAT CHOL 06/04/2024 10:27 SERUM 187 H 0.97 20 19 1.3 H 78 151 05/08/2024 11:24 SERUM 216 H 0.84 20 24 1.1 71 142 10/10/2023 15:42 SERUM 29 29 1.3 H 89 10/10/2023 15:41 SERUM 172 H 1.26 96 08/03/2023 08:05 SERUM 116 H 0.89 107 Collection DT Spec LDL-c HDL TRIG TSH B12 SR- VIT [id number] 06/04/2024 10:27 SERUM 1.78 06/04/2024 10:27 SERUM 73 49 146 05/08/2024 11:24 SERUM 64 42 179 H 05/08/2024 11:23 SERUM 46 10/10/2023 15:41 SERUM 44 32 L 101 41 Collection DT Spec RBC/HPF 09/27/2022 12:14 URINE 0-2 10/30/2018 14:02 URINE 3-5 10/18/2017 07:35 URINE 3-5 09/20/2016 08:19 URINE 0-5 10/26/2013 09:17 URINE 6-10 H Other Studies and Medical Notes: CT ABDOMEN AND PELVIS WITH CONTRAST Proc Ord: CT ABDOMEN W&W/O CONT Exm Date: JUN 17, 2024@11:32 Req Phys: TOÑO PETER Loc: CWM/NO/PACT 3 (Req'g Loc) Img Loc: [facility]/CT Service: Unknown [facility] [place] [address] (Case [id number] COMPLETE) CT ABDOMEN AND PELVIS WITH CONTRA(CT Detailed) CPT:11755 Contrast Media : Non-ionic Iodinated Reason for [...] 17, 2024 Date Verified: JUN 17, 2024 Health Diagnostics Teacher E-Sig:/ES/EVGENY Garcia IGNACIO Report: Exam: CT of abdomen and [...] Primary Interpreting Staff: EVGENY IGNACIO, Staff Physician (Gerardo) /KAYLEIGH Outpatient Medication Reconciliation: NO DISCREPANCIES FOUND other than those listed in note. The patient's medication list/medication history to include Active local VA prescriptions, Active remote VA (dispensed from another [place] or [facility] facility) prescriptions, local non-VA medications,recently VA prescriptions (90-180 days), recently discontinued VA prescriptions (90-180 days), and pending Medication Orders where relevant (e.g., patient is seen by multiple providers on the same day) was compared with CPRS and reviewed with the patient and reconciled. Any changes in medications and any medications prescribed by this provider and discontinued are documented in this note. Medications not prescribed by this provider will be addressed by pt's PCM or appropriate specialty provider. MRP - Medication Reconciliation Alphabetized list of outpatient Rx's, inpatient orders, remote and Non-VA meds Legend: OPT = VA issued outpatient prescription, INP = VA issued inpatient order Non-VA Meds Last Documented On: Oct 09, 2023 Non VA ACETAMINOPHEN TAB TAKE BY MOUTH ONCE DAILY NEEDED Non VA AMLODIPINE BESYLATE 2.5MG TAB TAKE ONE TABLET BY MOUTH ONCE DAILY Non VA ASPIRIN 81MG EC TAB TAKE ONE TABLET BY MOUTH ONCE DAILY OPT ATORVASTATIN CALCIUM 80MG TAB (Status = ACTIVE) TAKE ONE-HALF TABLET BY MOUTH ONCE DAILY Last Released: 06/25/24 Days Supply: 90 Rx Expiration Date: 02/27/25 Refills Remainin OPT CALCIUM 200MG (CA CITRATE-950MG) TAB (Status = ACTIVE) TAKE FOUR TABLETS BY MOUTH TWICE DAILY Last Released: 05/08/24 Days Supply: 90 Rx Expiration Date: 11/27/24 Refills Remainin Non VA CHOLECALCIF 50MCG (D3-2,000UNIT) TAB TAKE ONE TABLET BY MOUTH ONCE DAILY Aug 11, 2020 Non-VA medication not recommended by VA provider. Non VA CYCLOBENZAPRINE HCL 10MG TAB TAKE ONE TABLET BY MOUTH TWICE DAILY Non VA FUROSEMIDE 20MG TAB TAKE ONE TABLET BY MOUTH ONCE DAILY OPT GABAPENTIN 600MG TAB (Status = ACTIVE) TAKE ONE TABLET BY MOUTH THREE TIMES A DAY Last Released: Days Supply: 90 Rx Expiration Date: 09/30/24 Refills Remainin OPT GLUCOSE 4GM CHEW TAB (Status = ACTIVE) CHEW ONE TABLET BY MOUTH EVERY DAY NEEDED FOR LOW BLOOD SUGAR Last Released: 04/08/24 Days Supply: 30 Rx Expiration Date: 04/03/25 Refills Remainin OPT GLUCOSE SENSOR DEXCOM G7 (Status = ACTIVE) USE 1 SENSOR DIRECTED EVERY 10 DAYS Last Released: 06/25/24 Days Supply: 90 Rx Expiration Date: 06/18/25 Refills Remainin OPT HYDROXYCHLOROQUINE SULFATE 200MG TAB (Status = ACTIVE) TAKE TWO TABLETS BY MOUTH ONCE DAILY 5 DAYS A WEEK, AND 1 TABLET DAILY 2 DAYS A WEEK. Last Released: 12/5/24 Days Supply: 90 Rx Expiration Date: 08/19/24 Refills Remainin OPT INSULIN,ASPART,HUMAN 100 UNIT/ML INJ (Status = ACTIVE) INJECT 80 UNITS SUBCUTANEOUSLY EVERY DAY DIRECTED FOR USE WITH CONTINUOUS SUBCUTANEOUS INSULIN INFUSION DEVICE Last Released: 06/04/24 Supply: 90 Rx Expiration Date: 09/01/24 Refills Remainin OPT KETOCONAZOLE 2% CREAM (Status = ACTIVE) APPLY A THIN LAYER TOPICALLY TWICE DAILY RASH APPLY TO AFFECTED AREAS ON FACE TWICE DAILY FOR 4 WEEKS, THEN NEEDED Last Released: 07/21/23 Supply: 30 Rx Expiration Date: 07/13/24 Refills Remainin OPT KETOCONAZOLE 2% SHAMPOO (Status = ACTIVE) SHAMPOO SMALL AMOUNT TOPICALLY TWICE A WEEK NEEDED APPLY FOR 8 WEEKS, THEN NEEDED Last Released: 06/25/24 Supply: 30 Rx Expiration Date: 07/13/24 Refills Remainin OPT LEFLUNOMIDE 20MG TAB (Status = ACTIVE) TAKE ONE TABLET BY MOUTH ONCE DAILY Last Released: 05/02/24 Supply: 90 Rx Expiration Date: 07/29/24 Refills Remainin Non VA LOSARTAN 100MG TAB TAKE ONE TABLET BY MOUTH DAILY OPT MULTIVIT/OPHTH AREDS2/LUTE/ZEAX CAP/TAB (Status = ACTIVE) TAKE 1 CAPSULE BY MOUTH TWICE DAILY IN THE MORNING AND EVENING, WITH FOOD Last Released: 06/25/24 Supply: 60 Rx Expiration Date: 04/30/25 Refills Remainin Non VA OMEPRAZOLE 20MG EC CAP TAKE 1 CAPSULE BY MOUTH EVERY DAY Non VA PILOCARPINE HCL 5MG TAB TAKE ONE TABLET BY MOUTH TWICE DAILY Dec 04, 2020 Non-VA medication not recommended by VA provider. OPT PREDNISONE 2.5MG TAB (Status = ACTIVE) TAKE THREE TABLETS BY MOUTH ONCE DAILY Last Released: 06/25/24 Supply: 30 Rx Expiration Date: 04/30/25 Refills Remainin OPT TAMSULOSIN HCL 0.4MG CAP (Status = ACTIVE) TAKE TWO CAPSULES BY MOUTH AT BEDTIME Last Released: 04/27/24 Days Supply: 90 Rx Expiration Date: 01/22/25 Refills Remainin OPT TOCILIZUMAB 162MG/0.9ML INJ SYR 0.9ML (Status = ACTIVE) INJECT 162MG SUBCUTANEOUSLY EVERY 2 WEEKS Last Released: 06/06/24 Days Supply: 28 Rx Expiration Date: 04/12/25 Refills Remainin Other medications previously dispensed in the last year: OPT CITALOPRAM HYDROBROMIDE 10MG TAB (DISCONTINUED BY PROVIDER/ Days Supply Last Released: 05/28/24) TAKE ONE-HALF TABLET BY MOUTH ONCE DAILY FOR DEPRESSION AND ANXIETY OPT CITALOPRAM HYDROBROMIDE 20MG TAB (DISCONTINUED (EDIT)/ Days Supply Last Released: 12/20/23) TAKE ONE-HALF TABLET BY MOUTH ONCE DAILY FOR MOOD OPT DENOSUMAB 60MG/ML INJ SYRINGE 1ML (/ Days Supply Last Released: 05/07/24) INJECT 60MG/1ML SUBCUTANEOUSLY ONE TIME FOR OSTEOPOROSIS OPT LEFLUNOMIDE 10MG TAB (DISCONTINUED/ Days Supply Last Released: 03/26/24) TAKE ONE TABLET BY MOUTH ONCE DAILY FOR 14 DAYS, THEN TAKE TWO TABLETS ONCE DAILY OPT NEEDLE 18G 1IN (/ Days Supply Last Released: 07/21/23) USE 1 NEEDLE EVERY 7 DAYS FOR INJECTION OPT NEEDLE 23G 1IN (/ Days Supply Last Released: 07/20/23) USE 1 NEEDLE EVERY 7 DAYS FOR INJECTION OPT OXYCODONE HCL 5MG TAB NOT SA (/ Supply Last Released: 02/21/24) TAKE ONE TABLET BY MOUTH EVERY 6 HOURS NEEDED FOR SEVERE PAIN OPT PREDNISONE 10MG TAB (DISCONTINUED/ Days Supply Last Released: 04/18/24) TAKE ONE TABLET BY MOUTH ONCE DAILY OPT PREDNISONE 1MG TAB (DISCONTINUED/ Days Supply Last Released: 03/01/24) TAKE FOUR TABLETS BY MOUTH ONCE DAILY OPT SYRINGE 1ML LUER LOCK TIP (/ Days Supply Last Released: 07/13/23) USE 1 SYRINGE EVERY 7 DAYS Assessment/Plan JUL 05, 2024: This is an 84 year old man with IDDM, hx of AVR, GERD, rheumatoid arthritis, and PMR, who is on prednisone and other immunosuppressants, who was referred to this Clinic with a history of abdominal pain and a purported right-sided Spigelian hernia seen on CT scan. However, on evaluation today, the patient was hypotensive and got increasingly severe diffuse abdominal pain and tenderenss. His abdominal exam is very concerning as his pain is now severe and he is exquisitely tender with even the lightest touch. He has involuntary guarding. He has an acute abdomen. The patient is s/p appy and cholecystectomy. Given his history, symptoms, and previous CT scan findings, doubt that his pain is related to his hernia (which showed fat herniating out posterolaterally on the right side). The patient's CT scan of 06/17/2024 did not show any acute findings. Although his pain now does not appear to be out of proportion to his exam, his exam is very concerning. He is exquisitely tender with marked involuntary guarding, and this may well be related to possibly mesenteric ischemia. Other possibilities include complicated diverticulitis or ulcer disease. Given his evolving worsening presentation and acute abdomen, my recommendation is for the patient to go emergently to the hospital. Emergency services was quickly contacted. The patient's BP did improve, though it was still low. Prior to EMS' arrival, the patient initially stated that he did not want to go to the hospital, and he wanted to drive himself home. However, this would not be advised at all. Ultimately, as the pain was steady and getting worse, he did agree that he should go. He indicated that his previous episodes of pain were nowhere near as bad as this and they did not last this long. Emergency services did arrive and he was expeditiously evaluated and ultimately brought by paramedics to [facility] (patient's choice). 45-60 minutes were spent on reviewing the pertinent medical records, obtaining a history from the patient, performing an exam and assessment, counseling, answering questions, and shared decision-making. Joana Crenshaw MD Staff General Surgeon Medication Reconciliation: Outpatient: Has the patient been [...] Remote Allergy/ADR Data available for this patient [facility] [...] the patient into personal health records (i.e. [facility]) are NOT included in this list. Non-VA medications documented outside this [place], remote inpatient orders (regardless of status) and [...] ONE-HALF TABLET BY MOUTH ONCE DAILY Rx# [id number] Last Released: 06/25/24 Qty/Days Supply: 45 Rx Expiration Date: 02/27/25 Refills Remainin Indication: FOR HIGH CHOLESTEROL OUTPT CALCIUM 200MG (CA CITRATE-950MG) TAB (Status = Active) TAKE FOUR TABLETS BY MOUTH TWICE DAILY Rx# [id number] Last Released: 05/08/24 Qty/Days Supply: 800/90 Rx Expiration Date: 11/27/24 Refills Remainin Indication: FOR OSTEOPOROSIS Non-VA CHOLECALCIF 50MCG (D3-2,000UNIT) TAB TAKE ONE TABLET BY MOUTH ONCE DAILY Aug 11, 2020 Non-VA medication not recommended by VA provider. OUTPT CITALOPRAM HYDROBROMIDE 10MG TAB (Status = Discontinued) TAKE ONE-HALF TABLET BY MOUTH ONCE DAILY FOR DEPRESSION AND ANXIETY Rx# [id number] Last Released: 05/28/24 Qty/Days Supply: 45 Rx Expiration Date: 02/28/25 Refills Remainin Indication: FOR MAJOR DEPRESSIVE DISORDER Non-VA CYCLOBENZAPRINE HCL 10MG TAB TAKE ONE TABLET BY MOUTH TWICE DAILY OUTPT DENOSUMAB 60MG/ML INJ SYRINGE 1ML (Status = ) INJECT 60MG/1ML SUBCUTANEOUSLY ONE TIME FOR OSTEOPOROSIS Rx# [id number] Last Released: 05/07/24 Qty/Days Supply: 07/18 Rx Expiration Date: 05/30/24 Refills Remainin Indication: FOR OSTEOPOROSIS Non-VA FUROSEMIDE 20MG TAB TAKE ONE TABLET BY MOUTH ONCE DAILY OUTPT GABAPENTIN 600MG TAB (Status = Active) TAKE ONE TABLET BY MOUTH THREE TIMES A DAY Rx# [id number] Last Released: Supply: Rx Expiration Date: 09/30/24 Refills Remainin OUTPT GLUCOSE 4GM CHEW TAB (Status = Active) CHEW ONE TABLET BY MOUTH EVERY DAY NEEDED FOR LOW BLOOD SUGAR Rx# [id number] Last Released: 04/08/24 Qty/Days Supply: Rx Expiration Date: 04/03/25 Refills Remainin Indication: FOR LOW BLOOD SUGAR OUTPT HYDROXYCHLOROQUINE SULFATE 200MG TAB (Status = Active) TAKE TWO TABLETS BY MOUTH ONCE DAILY 5 DAYS A WEEK, AND 1 TABLET DAILY 2 DAYS A WEEK. Rx# [id number] Last Released: 05/23/24 Qty/Days Supply: Rx Expiration Date: 08/19/24 Refills Remainin OUTPT INSULIN,ASPART,HUMAN 100 UNIT/ML INJ (Status = ) INJECT 80 UNITS SUBCUTANEOUSLY EVERY DAY DIRECTED FOR USE WITH CONTINUOUS SUBCUTANEOUS INSULIN INFUSION DEVICE Rx# [id number] Last Released: 01/24/24 Qty/Days Supply: Rx Expiration Date: 04/17/24 Refills Remainin OUTPT INSULIN,ASPART,HUMAN 100 UNIT/ML INJ (Status = Active) INJECT 80 UNITS SUBCUTANEOUSLY EVERY DAY DIRECTED FOR USE WITH CONTINUOUS SUBCUTANEOUS INSULIN INFUSION DEVICE Rx# [id number] Last Released: 06/04/24 Qty/Days Supply: Rx Expiration Date: 09/01/24 Refills Remainin Indication: FOR DIABETES OUTPT KETOCONAZOLE 2% CREAM (Status = Active) APPLY A THIN LAYER TOPICALLY TWICE DAILY RASH APPLY TO AFFECTED AREAS ON FACE TWICE DAILY FOR 4 WEEKS, THEN NEEDED Rx# [id number] Last Released: 07/21/23 Qty/Days Supply: Rx Expiration Date: 07/13/24 Refills Remainin Indication: RASH OUTPT KETOCONAZOLE 2% SHAMPOO (Status = Active) SHAMPOO SMALL AMOUNT TOPICALLY TWICE A WEEK NEEDED APPLY FOR 8 WEEKS, THEN NEEDED Rx# [id number] Last Released: 06/25/24 Qty/Days Supply: 240/30 Rx Expiration Date: 07/13/24 Refills Remainin Indication: SCALP RASH OUTPT LEFLUNOMIDE 10MG TAB (Status = Discontinued) TAKE ONE TABLET BY MOUTH ONCE DAILY FOR 14 DAYS, THEN TAKE TWO TABLETS ONCE DAILY Rx# [id number] Last Released: 03/26/24 Qty/Days Supply: 6030 Rx Expiration Date: 03/26/25 Refills Remainin OUTPT LEFLUNOMIDE 20MG TAB (Status = Active) TAKE ONE TABLET BY MOUTH ONCE DAILY Rx# [id number] Last Released: 05/02/24 Qty/Days Supply: 90 Rx Expiration Date: 07/29/24 Refills Remainin Non-VA LOSARTAN 100MG TAB TAKE ONE TABLET BY MOUTH DAILY OUTPT MULTIVIT/OPHTH AREDS2/LUTE/ZEAX CAP/TAB (Status = Active) TAKE 1 CAPSULE BY MOUTH TWICE DAILY IN THE MORNING AND EVENING, WITH FOOD Rx# [id number] Last Released: 06/25/24 Qty/Days Supply: 120/60 Rx Expiration Date: 04/30/25 Refills Remainin Non-VA OMEPRAZOLE 20MG EC CAP TAKE 1 CAPSULE BY MOUTH EVERY DAY Non-VA PILOCARPINE HCL 5MG TAB TAKE ONE TABLET BY MOUTH TWICE DAILY Dec 04, 2020 Non-VA medication not recommended by VA provider. OUTPT PREDNISONE 10MG TAB (Status = Discontinued) TAKE ONE TABLET BY MOUTH ONCE DAILY Rx# [id number] Last Released: 04/18/24 Qty/Days Supply: 9090 Rx Expiration Date: 07/09/24 Refills Remainin OUTPT PREDNISONE 1MG TAB (Status = Discontinued) TAKE FOUR TABLETS BY MOUTH ONCE DAILY Rx# [id number] Last Released: 03/01/24 Qty/Days Supply: 120/30 Rx Expiration Date: 02/26/25 Refills Remainin OUTPT PREDNISONE 2.5MG TAB (Status = Active) TAKE THREE TABLETS BY MOUTH ONCE DAILY Rx# [id number] Last Released: 06/25/24 Qty/Days Supply: 9030 Rx Expiration Date: 04/30/25 Refills Remainin OUTPT TAMSULOSIN HCL 0.4MG CAP (Status = Active) TAKE TWO CAPSULES BY MOUTH AT BEDTIME Rx# [id number] Last Released: 04/27/24 Qty/Days Supply: Rx Expiration Date: 01/22/25 Refills Remainin OUTPT TOCILIZUMAB 162MG/0.9ML INJ SYR 0.9ML (Status = Discontinued) INJECT 162MG SUBCUTANEOUSLY EVERY 2 WEEKS Rx# [id number] Last Released: 03/14/24 Qty/Days Supply: 08/16 Rx Expiration Date: 11/17/24 Refills Remainin OUTPT TOCILIZUMAB 162MG/0.9ML INJ SYR 0.9ML (Status = Active) INJECT 162MG SUBCUTANEOUSLY EVERY 2 WEEKS Rx# [id number] Last Released: 06/06/24 Qty/Days Supply: 08/16 Rx Expiration Date: 04/12/25 Refills Remainin SUPPLIES OUTPT GLUCOSE SENSOR DEXCOM G7 (Status = Active) USE 1 SENSOR DIRECTED EVERY 10 DAYS Rx# [id number] Last Released: 06/25/24 Qty/Days Supply: Rx Expiration Date: 06/18/25 Refills Remainin OUTPT NEEDLE 18G 1IN (Status = ) USE 1 NEEDLE EVERY 7 DAYS FOR INJECTION Rx# [id number] Last Released: 07/21/23 Qty/Days Supply: Rx Expiration Date: 04/27/24 Refills Remainin OUTPT NEEDLE 23G 1IN (Status = ) USE 1 NEEDLE EVERY 7 DAYS FOR INJECTION Rx# [id number] Last Released: 07/20/23 Qty/Days Supply: Rx Expiration Date: 04/27/24 Refills Remainin OUTPT SYRINGE 1ML LUER LOCK TIP (Status = ) USE 1 SYRINGE EVERY 7 DAYS Rx# [id number] Last Released: 07/13/23 Qty/Days Supply: Rx Expiration Date: 04/27/24 Refills Remainin /thomas/ JOANA CRENSHAW MD SURGEON Signed: 07/05/2024 23:02 07/06/2024 ADDENDUM STATUS: COMPLETED PLease contact him, check [facility] for [facility] records etc. /thomas/ Toño Peter PA-C STAFF PHYSICIAN CONTINUUM OF CARE MANAGER Signed: 07/06/2024 07:38 Receipt Acknowledged By: * AWAITING SIGNATURE * VIJAYA KENDALL L[facility]LIE S [facility]
--- OUTSIDE RECORDS SUMMARY | 2024-10-01 11:28 | XMS_ITS | Clinical Summary ---
Author Organization LL [address] [place] [address] [place] [phone] Phone Care Team Providers Care Shutdown Coordinator Name Role Phone Jamilah Bueno Primary Care Provider [phone] Allergies Active Allergy Reactions Criticality Noted Date Comments Penicillins 08/12/2024 Piperacillin-Tazobactam 09/02/2022 Liver problems Tazobactam 08/12/2024 Medications furosemide (LASIX) 20 mg tablet TAKE 1 TABLET BY MOUTH DAILY 90 tablet 1 4 Active aspirin 81 mg EC tablet Take 1 tablet (81 mg total) by mouth 1 (one) time each day. 4 Active metoprolol succinate (TOPROL-XL) 25 mg 24 hr tablet Sig - Route: Take 0.5 Tablets by mouth daily for 360 days. - Oral 4 01/11/20 25 Active losartan (COZAAR) 100 mg tablet Take 1 tablet (100 mg total) by mouth 1 (one) time each day. 90 tablet 1 5 Active cholecalciferol (VITAMIN D-3) 50 mcg (2,000 unit) tablet Take 1 tablet (2,000 Units total) by mouth 1 (one) time each day. Active tamsulosin (FLOMAX) 0.4 mg 24 hr capsule Capsules should be taken 30 minutes following the same meal each day. Active calcium amino acid chelate 200 mg calcium tablet Sig - Route: Take 800 mg by mouth 2 Times Daily. - Oral Active predniSONE (DELTASONE) 1 mg tablet 4 Tablets daily. Active DILUENT, INSULIN ASPART NO.1 INJ Inject into the skin. pump Active acetaminophen (TYLENOL 8 HOUR) 650 mg 8 hr tablet Take 650 mg by mouth every 8 hours as needed. Active multivitamin,th er and minerals (VITAMINS AND MINERALS ORAL) Take by mouth. BID Active cyclobenzaprine (FLEXERIL) 10 mg tablet Take 10 mg by mouth at bedtime. 0 Active gabapentin (NEURONTIN) 600 mg tablet Take 1 Tablet by mouth 3 times daily. 0 Active OMEPRAZOLE ORAL 20 mg 2 (two) times a day. 0 Active pilocarpine (SALAGEN) 5 mg tablet Take 5 mg by mouth 2 times daily. Active L. acidophilus/L. bifidus (LACTOBACILLUS ACIDOPH-L. BIFID ORAL) 1 tablet 1 (one) time each day. Active predniSONE (DELTASONE) 5 mg tablet Take 1 tablet (5 mg total) by mouth 1 (one) time each day. Active amLODIPine (NORVASC) 2.5 mg tablet Take 1 tablet (2.5 mg total) by mouth 1 (one) time each day. Active hydroxychloroqu ine (PLAQUENIL) 200 mg tablet Take 1 tablet (200 mg total) by mouth 1 (one) time each day. Active atorvastatin (LIPITOR) 80 mg tablet Take 0.5 tablets by mouth at bedtime. Active tamsulosin (FLOMAX) 0.4 mg 24 hr capsule Take 2 capsules (0.8 mg total) by mouth 1 (one) time each day with breakfast. Capsules should be taken 30 minutes following the same meal each day. Active dextrose (GLUCOSE ORAL) Take 4 mg by mouth if needed. Active insulin glargine (LANTUS) 100 unit/mL injection Inject 19 Units under the skin at bedtime. PRN pump Active insulin aspart (NovoLOG) 100 unit/mL injection Sliding scale 4 Active docusate sodium (COLACE) 100 mg capsule Take 1 capsule (100 mg total) by mouth 2 (two) times a day if needed for constipation. Active Active Problems Problem Noted Date Diagnosed Date Nonrheumatic aortic valve stenosis 08/23/2024 Assessment & Plan (08/23/2024 12:45 PM EST): Patient is status post TAVR aortic valve replacement. Stable he is due for a 1 year follow-up echo in the next few months. And a follow-up TAVR appointment needs to continue endocarditis prophylaxis Hypertension 08/12/2024 Rales 08/12/2024 SOB (shortness of breath) on exertion 08/12/2024 Bradycardia 02/13/2023 CAD (coronary artery disease) 02/13/2023 Overview (08/12/2024): Last Assessment & Plan: Patient has history of coronary artery disease with a 50% lesion in the diagonal on previous coronary angiogram. He denies any exertional anginal symptoms and continues on cardioprotective medical therapy with atorvastatin. I have reviewed with the patient the importance of a heart healthy lifestyle which includes eating a low- fat low-salt diet, getting regular exercise, maintaining a healthy weight, not smoking, and following up with routine medical care. Assessment & Plan (08/23/2024 12:45 PM EST): History of mild coronary artery disease and obtuse marginal. No significant residual disease at this time. No symptoms. Remains on risk factor modification and cardioprotective therapy. The above note was prepared with the help of voice recognition software. Please excuse any grammatical or spelling errors that may have occurred Dizziness 02/13/2023 HLD (hyperlipidemia) 02/13/2023 Overview (08/12/2024): Last Assessment & Plan: Patient continues on atorvastatin 40 mg once a day. Last LDL cholesterol was 53. This is at goal. Exertional chest pain 09/21/2020 Overview (08/12/2024): Last Assessment & Plan: Patient with no complaints of angina. Diagnostic catheterization in the past that shown mild obstructive disease Encounters Date Type Department Care Team Description 08/23/2024 11:20 AM EST Office Visit [facility] - [facility] [address] [facility] [address] [place] [phone] Dejuan Grider MD Nonrheumatic aortic valve stenosis (Primary Dx); Coronary artery disease involving robinson coronary artery of robinson heart without angina pectoris 08/20/2024 Telephone [facility] [address] [place] [address] Román Mclean MD pt needs labs before 11/04/24 one year TAVR f/u visit w/[facility] 08/09/2024 Telephone [facility] [address] [place] [address] Dejuan Grider MD Med Refill (Losartan) 07/29/2024 Lab Requisition [facility] Lab [address] [facility] [place] [phone] Trina Brock MD Type 2 diabetes mellitus without complications ([facility] V24, [facility] V28); Atherosclerotic heart disease of robinson coronary artery without angina pectoris; Benign prostatic hyperplasia without lower urinary tract symptoms; Occlusion and stenosis of left vertebral artery 07/22/2024 Lab Requisition [facility] - Main Lab [address] [facility] [place] [phone] Trina Brock MD Occlusion and stenosis of left vertebral artery; Benign prostatic hyperplasia without lower urinary tract symptoms; Atherosclerotic heart disease of robinson coronary artery without angina pectoris; Type 2 diabetes mellitus without complications ([facility] V24, [facility] V28) 07/18/2024 Lab Requisition [facility] Main Lab [address] [facility] [place] [place] [phone] Trina Brock MD Benign prostatic hyperplasia without lower urinary tract symptoms; Atherosclerotic heart disease of robinson coronary artery without angina pectoris; Occlusion and stenosis of left vertebral artery; half-way (current) use of anticoagulants; Type 2 diabetes mellitus without complications ([facility] V24, [facility] V28) 07/13/2024 Lab Requisition [facility] Main Lab [address] [facility] [place] [phone] Trina Brock MD Other usp (current) drug therapy from Last 3 Months Surgical History Surgery [...] syndrome HTN (hypertension) DX:HTN (hyper tension) Diabetes (CMS/HCC V24, CMS/HCC V28) DX:Diabetes (HCC) Anemia DX:Anemia Gastritis DX:Gastritis Hemorrhoids DX:Hemorrhoids Family [...] Blood Pressure 138/70 12/12/2023 2:20 PM EDT Sit ting R Arm Pulse 68 08/23/2024 11:36 AM EST Temperature - - Respiratory Rate - - Oxygen Saturation 93% 08/23/2024 11:36 AM EST Inhaled Oxygen Concentration - - Weight 73.5 kg (162 lb) 08/23/2024 11:36 AM EST Height 170.2 cm (5' 7 ) 08/23/2024 11:36 AM EST Body Mass Index 25.37 08/23/2024 11:36 AM EST Plan of Treatment Upcoming Encounters Date Type Department Care Team (Late st Contact Info) Description 10/30/2024 1:30 PM EDT Ancillary Procedure [facility] - [facility] [address] [facility] [address] [place] [phone] 11/04/2024 3:40 PM EDT Office Visit [facility] [address] [facility] [address] [place] [phone] Goldy Butler NP [address] [place] [address] [address] [place] [address] 02/24/2025 11:10 AM EDT Office Visit [facility] [address] [facility] [address] [place] [phone] Emmie Pickens NP [address] [place] [address] [address] [place] [address] Health Maintenance Due Date Last Done Comments Diabetes: Annual Foot Exam 1950 Diabetes: Annual Retina Eye Exam 1950 Depression Screening 05/28/2022 Falls Risk Assessment 05/28/2022 Social Influencers of Health Screening 05/28/2022 Medicare Annual Wellness Visit 08/01/2023 08/01/2022 Diabetes: Blood Sugar Control Test (HGBA1C) 10/09/2024 04/10/2024, 12/12/2023 Hypertension/CHF/CAD Annual BMP Blood Test 07/23/2025 07/23/2024, 07/18/2024, 07/13/2024, Additional history exists Cholesterol Screening (Lipid Panel) 07/30/2026 07/30/2021 DTaP,Tdap,and Td Vaccines (6 - Td or Tdap) 08/16/2034 08/16/2024, 03/11/2022, 10/09/2018, Additional history exists Pneumococcal Vaccine: 50+ Years Completed 11/12/2014, 11/12/2014, 06/19/2014, Additional history exists Zoster Vaccines Completed 09/27/2021, 0809/2019, 10/08/2010, Additional history exists COVID-19 Vaccine Completed 03/14/2024, 08/2022, 05/19/2022, Additional history exists Influenza Vaccine Completed 03/26/2024, , 04/21/2023, Additional history exists RSV Immunization Adult Patients Completed 08/14/2024 HIB Vaccines Aged Out No longer eligi [...] age to complete this topic Meningococcal B Vaccine Aged Out No l onger eligible based on patient's age to complete [...] urinary tract symptoms Atherosclerotic heart disease of robinson coronary artery without angina pectoris Type 2 diabetes mellitus without complications (CMS/HCC) COMPLETE BLOOD COUNT Routine 07/23/2024 6:38 AM EST Occlusion and stenosis of left vertebral artery Benign prostatic hyperplasia without lower urinary tract symptoms Atherosclerotic heart disease of robinson coronary artery without angina pectoris Type 2 diabetes mellitus without complications (CMS/HCC) BASIC METABOLIC PANEL Routine 07/18/2024 6:05 AM EST Benign prostatic hyperplasia without lower urinary tract symptoms 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 Type 2 diabetes mellitus without complications (CMS/HCC) COMPLETE BLOOD COUNT Routine 07/18/2024 6:05 AM EST Benign prostatic hyperplasia without lower urinary tract symptoms 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 Type 2 diabetes mellitus without complications (CMS/HCC) CBC WITH AUTO DIFFERENTIAL Routine 07/13/2024 7:29 AM EST Other usp (current) drug therapy BASIC METABOLIC PANEL Routine 07/13/2024 7:29 AM EST Other usp (current) drug therapy CBC AND DIFFERENTIAL Routine 07/13/2024 7:29 AM EST Other terminal makeup operator (current) drug therapy HEMOGLOBIN A1C Routine 12/12/2023 LIPID PANEL Routine 07/30/2021 from Last 3 Months or Most Recently Relevant to Health Maintenance Results * (ABNORMAL) Complete blood count (07/23/2024 6:38 AM EST) Only the most recent of2 resultswithin the time period is included. WBC 2.8(L) 4.8 - 10.8 K/mcL LAB HEMETOLOGY METHOD 07/23/2024 9:30 AM [facility] RBC 3.50(L) 4.50 - 5.50 M/mcL LAB HEMETOLOGY METHOD 07/23/2024 9:30 AM [facility] Hemoglobin 10.7(L) 13.5 - 17.5 g/dL LAB HEMETOLOGY METHOD 07/23/2024 9:30 AM [facility] Hematocrit 33.9(L) 42.0 - 54.0 % LAB HEMETOLOGY METHOD 07/23/2024 9:30 AM [facility] MCV 97.7 79.0 - 98.0 FL LAB HEMETOLOGY METHOD 07/23/2024 9:30 AM [facility] MCH 30.8 27.0 - 32.0 pcg LAB HEMETOLOGY METHOD 07/23/2024 9:30 AM [facility] MCHC 31.6(L) 32.0 - 37.0 g/dL LAB HEMETOLOGY METHOD 07/23/2024 9:30 AM [facility] RDW 15.0 11.0 - 15.0 % LAB HEMETOLOGY METHOD 07/23/2024 9:30 AM EST [facility] Platelets 88(L) 130 - 400 K/mcL LAB HEMETOLOGY METHOD 07/23/2024 9:30 AM [facility] Comment:previously verified by slide MPV 9.6 7.0 - 11.0 FL LAB HEMETOLOGY METHOD 07/23/2024 9:30 AM EST [facility] NRBC 0.0 <1.0 % LAB HEMETOLOGY METHOD 07/23/2024 9:30 AM [facility] NRBC Absolute 0.00 <0.10 K/mcL LAB [facility] 07/23/2024 9:30 AM [facility] Blood Venous blood specimen / Unknown Venipuncture / Unknown 07/23/2024 6:38 AM EST 07/23/2024 8:11 AM EST us Trina Brock MD LAB BLOOD ORDERABLES Fin al Result [facility] [address] [place] [address], * (ABNORMAL) Basic metabolic panel (07/23/2024 6:38 AM EST) Only the most recent of3 resultswithin the time period is included. Sodium 142 133 - 145 mmol/L LAB CHEMISTRY METHOD 07/23/2024 9:46 AM [facility] Potassium 3.4(L) 3.5 - 5.5 mmol/L LAB CHEMISTRY METHOD 07/23/2024 9:46 AM [facility] Chloride 107 96 - 110 mmol/L LAB CHEMISTRY METHOD 07/23/2024 9:46 AM [facility] CO2 28 21 - 32 mmol/L LAB CHEMISTRY METHOD 07/23/2024 9:46 AM [facility] Anion Gap 7 3 - 11 LAB CHEMISTRY METHOD 07/23/2024 9:46 AM [facility] Glucose 126(H) 70 - 100 mg/dL LAB CHEMISTRY METHOD 07/23/2024 9:46 AM [facility] BUN 9 5 - 25 mg/dL LAB CHEMISTRY METHOD 07/23/2024 9:46 AM [facility] Creatinine 0.67(L) 0.70 - 1.30 mg/dL LAB CHEMISTRY METHOD 07/23/2024 9:46 AM [facility] eGFR 91 >=60 mL/min/1. 73m2 LAB CHEMISTRY METHOD 07/23/2024 9:46 AM [facility] Comment:Calculation based on the??Chronic Kidney Disease Epidemiology Collaboration (CKD-EPI) equation refit??without adjustment for race. BUN/Creatinine Ratio 13.4 LAB CHEMISTRY METHOD 07/23/2024 9:46 AM [facility] Calcium 8.6 8.5 - 10.5 mg/dL LAB CHEMISTRY METHOD 07/23/2024 9:46 AM [facility] Blood Venous blood specimen / Unknown Venipuncture / Unknown 07/23/2024 6:38 AM EST 07/23/2024 8:11 AM EST us Trina Brock MD LAB BLOOD ORDERABLES Fin al Result [facility] [address] [place] [address], * (ABNORMAL) CBC auto differential (07/13/2024 7:29 AM EST) WBC 2.2(L) 4.8 - 10.8 K/mcL LAB HEMETOLOGY METHOD 07/13/2024 10:20 AM [facility] RBC 3.20(L) 4.50 - 5.50 M/mcL LAB HEMETOLOGY METHOD 07/13/2024 10:20 AM [facility] Hemoglobin 10.0(L) 13.5 - 17.5 g/dL LAB HEMETOLOGY METHOD 07/13/2024 10:20 AM [facility] Hematocrit 30.1(L) 42.0 - 54.0 % LAB HEMETOLOGY METHOD 07/13/2024 10:20 AM [facility] MCV 93.8 79.0 - 98.0 FL LAB HEMETOLOGY METHOD 07/13/2024 10:20 AM [facility] MCH 31.2 27.0 - 32.0 pcg LAB HEMETOLOGY METHOD 07/13/2024 10:20 AM [facility] MCHC 33.2 32.0 - 37.0 g/dL LAB HEMETOLOGY METHOD 07/13/2024 10:20 AM [facility] RDW 14.6 11.0 - 15.0 % LAB HEMETOLOGY METHOD 07/13/2024 10:20 AM [facility] Platelets 85(L) 130 - 400 K/mcL LAB HEMETOLOGY METHOD 07/13/2024 10:20 AM [facility] Comment:reviewed by slide MPV 8.7 7.0 - 11.0 FL LAB HEMETOLOGY METHOD 07/13/2024 10:20 AM [facility] NRBC 0.0 <1.0 % LAB HEMETOLOGY METHOD 07/13/2024 10:20 AM [facility] NRBC Absolute 0.00 <0.10 K/mcL LAB HEMETOLOGY METHOD 07/13/2024 10:20 AM [facility] Neutrophils Relative 43.6 % LAB HEMETOLOGY METHOD 07/13/2024 10:20 AM [facility] Lymphocytes Relative 28.9 % LAB HEMETOLOGY METHOD 07/13/2024 10:20 AM [facility] Monocytes Relative 23.9 % LAB HEMETOLOGY METHOD 07/13/2024 10:20 AM EST [facility] Eosinophils Relative 1.8 % LAB HEMETOLOGY METHOD 07/13/2024 10:20 AM [facility] Basophils Relative 1.8 % LAB HEMETOLOGY METHOD 07/13/2024 10:20 AM [facility] Immature Granulocytes Relative 0.0 % LAB HEMETOLOGY METHOD 07/13/2024 10:20 AM EST [facility] Neutrophils Absolute 0.95(L) 1.50 - 7.00 K/mcL LAB HEMETOLOGY METHOD 07/13/2024 10:20 AM EST [facility] Lymphocytes Absolute 0.63(L) 1.00 - 5.00 K/mcL LAB HEMETOLOGY METHOD 07/13/2024 10:20 AM [facility] Monocytes Absolute 0.52 0.20 - 1.00 K/mcL LAB HEMETOLOGY METHOD 07/13/2024 10:20 AM EST [facility] Eosinophils Absolute 0.04 0.00 - 0.50 K/mcL LAB HEMETOLOGY METHOD 07/13/2024 10:20 AM [facility] Basophils Absolute 0.04 0.00 - 0.20 K/mcL LAB HEMETOLOGY METHOD 07/13/2024 10:20 AM [facility] Immature Granulocytes Absolute 0.00 0.00 - 0.03 K/mcL LAB HEMETOLOGY METHOD 07/13/2024 10:20 AM [facility] Blood Venous blood specimen / Unknown Venipuncture / Unknown 07/13/2024 7:29 AM EST 07/13/2024 9:03 AM EST us Trina Brock MD LAB BLOOD ORDERABLES Fin al Result [facility] [address] [place] [address], * Hemoglobin A1c (12/12/2023) Hemoglobin A1C 0.0 % Comment:No interpretation ab stracted Blood Venous blood specimen / Unknown Historical Provider LAB BLOOD ORDERABLES Sarah l Result * Lipid panel (07/30/2021) LDL/HDL Ratio 0 Comment:No interpretation ab stracted Triglycerides 0 mg/dL Comment:No interpretation ab stracted Cholesterol 0 mg/dL Comment:No interpretation ab stracted HDL 0 mg/dL Comment:No interpretation ab stracted LDL Cholesterol 0 mg/dL Comment:No interpretation ab stracted Blood Venous blood specimen / Unknown Historical Provider LAB BLOOD ORDERABLES Sarah l Result from Last 3 Months or Most Recently Relevant to Health Maintenance Insurance MEDICARE [facility] Care Teams Shutdown Coordinator Relationship Specialty Start Date End Date Jamilah Bueno PA Ronnie [address] [place] [id number] PCP - General 08/23/24
--- OUTSIDE RECORDS SUMMARY | 2024-10-01 11:28 | XMS_ITS ---
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 Name Role Phone TOÑO CAI Primary Care [...] O MEDEX BRONZ E Mar 19, 2004 [id number] [phone] HOLLIE SHEPHERD PATIENT [place] MEDICARE SUPPLEMEN MASTER MEDEX BRONZ E Mar 19, 2004 [id number] HOLLIE SHEPHERD PATIENT [place] SUPPLEMEN MASTER MEDEX BRONZ E Mar 19, 2004 [id number] HOLLIE SHEPHERD PATIENT BCBS [facility] MEDICARE SUPPLEMEN MASTER PSUED O MEDEX BRONZ E Mar 19, 2004 [id number] HOLLIE SHEPHERD PATIENT MEDICARE (WNR) MEDICARE (M) PART B Mar 19, 2004 PART B [id number] HOLLIE SHEPHERD PATIENT MEDICARE (WNR) MEDICARE (M) PART B Mar 19, 2004 PART B [id number] [phone] HOLLIE SHEPHERD ALD PATIENT MEDICARE (WNR) MEDICARE (M) PART B Mar 19, 2004 PART B [id number] HOLLIE SHEPHERD ALD PATIENT MEDICARE (WNR) MEDICARE (M) PART A Feb 17, 2003 PART A [id number] [phone] HOLLIE SHEPHERD ALD PATIENT MEDICARE (WNR) MEDICARE (M) PART A Feb 17, 2003 PART A [id number] [phone] HOLLIE SHEPHERD ALD PATIENT MEDICARE (WNR) MEDICARE (M) PART A Feb 17, 2003 PART A [id number] HOLLIE SHEPHERD PATIENT MEDICARE (WNR) MEDICARE (M) PART A Feb 17, 2003 PART A [id number] [phone] HOLLIE SHEPHERD PATIENT MEDICARE (WNR) MEDICARE (M) PART B Feb 17, 2003 PART B [id number] HOLLIE SHEPHERD PATIENT MEDICARE (WNR) MEDICARE (M) PART A Feb 17, 2003 PART A [id number] HOLLIE SHEPHERD PATIENT MEDICARE (WNR) MEDICARE (M) PART B Feb 17, 2003 PART B [id number] HOLLIE SHEPHERD PATIENT Selected Encounter This section includes the information on record at [place] for the Encounter. Date/Time Encounter Type Encounter Description Reason Provider Source Feb 28, 2024 01:00 [facility] [...] [facility] the [facility] This section includes future appointments [...] [facility] [place] [facility] Mar 25, 2024 10:30 AM AMBULATORY - MEDICINE [facility] [place] [facility] Apr 02, 2024 02:00 PM AMBULATORY - MEDICINE [facility] [place] [facility] Apr 04, 2024 02:00 PM AMBULATORY - MEDICINE [facility] [place] [facility] Apr 08, 2024 01:00 PM AMBULATORY - REHAB MEDICIN E [facility] [place] [facility] Apr 12, 2024 09:45 AM AMBULATORY - MEDICINE [facility] [place] [facility] Apr 16, 2024 10:00 AM AMBULATORY - REHAB MEDICIN E [facility] [place] [facility] May 02, 2024 10:00 AM AMBULATORY - REHAB MEDICIN E [facility] [place] [facility] May 08, 2024 10:00 AM AMBULATORY - REHAB MEDICIN E [facility] [place] [facility] May 29, 2024 11:30 AM AMBULATORY - MEDICINE [facility] [place] [facility] Jun 05, 2024 12:00 PM AMBULATORY [place] [facility] Jun 05, 2024 12:00 PM AMBULATORY - PSYCHIATRY [facility] [place] [facility] Jun 17, 2024 10:30 AM AMBULATORY - MEDICINE [facility] [place] [facility] Jun 17, 2024 10:31 AM AMBULATORY - MEDICINE [facility] [place] [facility] Jun 17, 2024 11:45 AM AMBULATORY - NONE [facility] [place] [facility] Jun 21, 2024 11:00 AM AMBULATORY - MEDICINE [facility] [place] [facility] Jul 05, 2024 10:00 AM AMBULATORY - MEDICINE [facility] [place] [facility] Jul 10, 2024 08:00 AM AMBULATORY - MEDICINE [facility] [facility] Jul 10, 2024 01:30 PM AMBULATORY - MEDICINE [facility] [facility] Aug 01, 2024 11:00 AM AMBULATORY - MEDICINE [facility] [place] [facility] Social History: Smoking Status (Most current) [...] Date/Time Current Smoking Status Comment [facility] Jun 05, 2023 11:00 AM VA-TOBACCO QUIT [address] [facility] [place] [facility] Tobacco Use History This section includes a history of the smoking, or tobacco-related health factors, that were collected on or before the date of the Encounter. The data comes from the [place] facility where the Encounter took place. Date/Time Smoking Status/Tobac co Use Comment [facility] Jun 05, 2023 11:00 AM VA-TOBACCO QUIT 15 YRS OR MORE [facility] [place] [facility] Jun 06, 2022 01:00 PM VA-TOBACCO FORMER USER [facility] [place] [facility] Jun 06, 2022 01:00 PM VA-TOBACCO QUIT 15 YRS OR MORE [facility] [place] [facility] Jun 30, 2021 02:37 PM VA-TOBACCO FORMER USER [facility] [place] [facility] Jun 30, 2021 02:37 PM VA-TOBACCO QUIT 5 TO < 15 YRS [facility] [place] [facility] May 22, 2020 03:30 PM VA-TOBACCO NEVER USED [facility] [place] [facility] May 08, 2018 02:03 PM VA-TOBACCO FORMER USER [facility] [place] [facility] May 08, 2018 02:03 PM VA-TOBACCO QUIT 15 YRS OR MORE [facility] [place] [facility] November 10, 2017 02:33 PM QUIT TOBACCO USE > 7 YEARS AGO [facility] [place] [facility] October 21, 2016 01:55 PM QUIT TOBACCO USE > 7 [facility] AGO [facility] Sep 18, 2015 11:24 AM QUIT TOBACCO USE > 7 YEARS AGO stopped 50 years ago [facility] May 19, 2005 08:01 AM [address] OF [facility]MOKING [facility] May 31, 2004 01:02 PM [address] [facility]MOKING [facility] Jun 04, 2003 07:57 AM HISTORY OF [facility]MOKING [facility] Jun 03, 2002 01:11 PM [address] OF [facility]MOKING [facility] Jun 03, 2002 01:11 PM QUIT TOBACCO USE > [address] [facility] Advance Directives: All historical and [...] Source Jun 02, 2023 ADVANCE DIRECTIVE MARYANNETRICEJENNIFER Zelaya [facility] Radiology Reports: +/- 30 days of [...] SPINE LUMBOSACRAL MIN 2 VIEWS: BEBO SHEPHERD [id number] M Exm Date: FEB 12, 2024@10:52 Req Phys: TOÑO CAI Loc: CWM/NO/PACT 3 (Req'g Loc) Img Loc: [facility]/BUILDING 1 Service: Unknown [facility] [place] [address] (Case 32 COMPLETE) SPINE LUMBOSACRAL MIN 2 VIEWS (RAD Detailed) CPT:81075 Reason for Study: acute pain. Clinical History: Please burn him a disc. Report Status: Verified Date Reported: FEB 13, 2024 Date Verified: FEB 13, 2024 [employer] E-Sig: Report: SPINE LUMBOSACRAL MIN 2 VIEWS [...] hardware failure. READING PHYSICIAN: Lorena Alcaraz M.D. -[id number] 02/12/2024 23:26 [facility] National Teleradiology Program [phone] (For Medical Practitioner Use Only) Attention Patients / Veterans: If you have questions or concerns about these test results, please contact your ordering provider or primary care team. Primary Diagnostic Code: NO ALERT REQUIRED Primary Interpreting Staff: RADIOLOGY,OUTSIDE SERVICE, Staff Physician / RADIOLOGY,OUTSIDE SERVICE [facility] Encounter Notes: All associated encounter notes This [...] being provided via [facility] from the [facility] to the [facility] through the [facility] 1 Clinical Resource Hub. ID & Diagnoses: 83-year-old male with major depressive disorder (0% SC). , father of 4 adult children. Lives alone with a cat and a lot of fish in a large fish tank. Served in [employer] for 6 yrs. 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 He sees his medical doctors regularly. He has several friends. He has a good relationship with his girlfriend he recently met at a scientology, who is about 15 yrs younger than him. He still visit his '[place] almost daily. 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 He talks and sees his children, grandchildren, and great-grandchildren very often (usually once a week). He enjoys making wood toys, watching movies, doing yard work and lawn maintenance, and meeting with scientology people. Denies alcohol, drug, or gambling problems. No acute psychiatric issues noted. MENTAL STATUS EXAM: Appearance/Behavior: pleasant Speech: normal rate/rhythm Mood: euthymic Affect: mood congruent Perceptual disturbance: no visual/auditory hallucinations Thought process: goal directed Thought content: no delusions Suicidal/Violent thoughts: none Cognition/Memory: grossly intact Insight/Judgment: good Risk assessment: [place] is determined to have LOW ACUTE RISK to self or others at this time. [place] is determined to have LOW CHRONIC RISK---based [...] ] no [ x ] yes Therapeutic [place] [ ] no [ x ] yes [...] discontinued), Non-VA Medications have been reviewed in [facility] medication records. PSYCHIATRIC MEDICATION MONITORING: [place] reports taking medication as prescribed [x] yes [] no Refill hx is appropriate [x] yes [] no Medication side effects: [] yes [x] no Benefits/risks, potential side effects, off-label use and alternative treatments were discussed. Patient verbally consents to taking psychotropic medications as prescribed Active Problem Elevated PSA R97.20 10/11/2023 ALLIE CUELLO Aortic Valve Disorder (SCT 4453094) 10/09/2023 TOÑO CAI Cerebrovascular disease I67.9 04/26/2023 [...] DE LA CRUZ MD Hypertension (SNOMED CT 41543888) I 04/26/2023 ALLIE CUELLO Spinal Stenosis * (ICD-9-CM 724.00) 02/05/2010 VESTA DE LA CRUZ MD Hyperlipidemia (SNOMED CT 08049621) 04/26/2023 ALLIE CUELLO Osteoarthritis * (ICD-9-CM 715.90) 07/02/2008 PAUL ACOSTA Lower Back Pain * (ICD-9-CM 724.2) 07/02/2008 PAUL ACOSTA Vertigo 780.4 11/28/2007 PAUL ACOSTA Diabetes mellitus type 2 (SNOMED CT 09/17/2022 ALLIE CUELLO Gastroesophageal Reflux Disorder 53 11/28/2007 PAUL ACOSTA ASSESSMENT: -Major depressive disorder: stable PLAN: -Reduce citalopram from 10 to 5 mg/day for depression (as above) -Follow-up: Return to clinic with commercial underwriter on 06/05 or earlier as needed /thomas/ Radha Harper MD PSYCHIATRIST, PSYCHIATRY Signed: 02/28/2024 13:40 RADHA HARPER [facility]
--- OUTSIDE RECORDS SUMMARY | 2024-10-01 11:28 | XMS_ITS | Encounter Summary ---
Author Name [facility] [place] [facility] [place] Address [address] [place] [id number] Care Team Providers Care Recreational Assistant Name Role Phone TOÑO CAI Primary [...] Relationship to Policy Wen [place] SUPPLEMEN MASTER PSUED O MEDEX BRONZ E Mar 19, 2004 [id number] [phone] HOLLIE SHEPHERD PATIENT [place] SUPPLEMEN MASTER MEDEX BRONZ E Mar 19, 2004 [id number] [phone] HOLLIE SHEPHERD [place]IENT [place] SUPPLE[place] MASTER MEDEX BRONZ E Mar 19, 2004 [id number] [phone] HOLLIE SHEPHERD PATIENT BCBS [facility] MEDICARE SUPPLEMEN MASTER PSUED O MEDEX BRONZ E Mar 19, 2004 [id number] HOLLIE SHEPHERD PATIENT MEDICARE (WNR) MEDICARE (M) PART B Mar 19, 2004 PART B [id number] HOLLIE SHEPHERD PATIENT MEDICARE (WNR) MEDICARE (M) PART B Mar 19, 2004 PART B [id number] HOLLIE SHEPHERD ALD PATIENT MEDICARE (WNR) MEDICARE (M) PART B Mar 19, 2004 PART B [id number] HOLLIE SHEPHERD ALD PATIENT MEDICARE (WNR) MEDICARE (M) PART A Feb 17, 2003 PART A [id number] HOLLIE SHEPHERD ALD PATIENT MEDICARE (WNR) MEDICARE (M) PART A Feb 17, 2003 PART A [id number] HOLLIE SHEPHERD ALD PATIENT MEDICARE (WNR) MEDICARE (M) PART A Feb 17, 2003 PART A [id number] HOLLIE SHEPHERD PATIENT MEDICARE (WNR) MEDICARE (M) PART A Feb 17, 2003 PART A [id number] HOLLIE SHEPHERD PATIENT MEDICARE (WNR) MEDICARE (M) PART B Feb 17, 2003 PART B [id number] HOLLIE SHEPHERD PATIENT MEDICARE (WNR) MEDICARE (M) PART A Feb 17, 2003 PART A [id number] HOLLIE SHEPHERD PATIENT MEDICARE (WNR) MEDICARE (M) PART B Feb 17, 2003 PART B [id number] HOLLIE SHEPHERD PATIENT Selected Encounter This section includes the information on record at [place] for the Encounter. Date/Time Encounter Type Encounter Description Reason Provider Source Jun 05, 2024 12:00 PM [facility] - IND ICD-10-CM F33.9 Major depressive disorder, recurrent, unspecified MEREDITH,GIRENZOUN IHE Encounter Template Text not used by [place] Assessments - Encounter Diagnoses This section includes the primary and secondary diagnoses documented for the Encounter. Date/Time Primary/Secondary Diagnosis Diagnosis Name Provider Source Jun 30, 2024 09:20 AM PRIMARY Major depressive disorder, recurrent, unspecified MEREDITH,GIHYUN [place] [facility] [place] [facility] Plan of Treatment: Future Appointments (+ 6 months) and Future Tests (+/- 45 days) The Plan of Treatment section includes future care activities for the [facility] This section includes future appointments and future [...] [facility] [place] [facility] Jun 17, 2024 10:31 AM AMBULATORY - MEDICINE [facility] [place] [facility] Jun 17, 2024 11:45 AM AMBULATORY - NONE [facility] [place] [facility] Jun 21, 2024 11:00 AM AMBULATORY - MEDICINE [facility] [place] [facility] Jul 05, 2024 10:00 AM AMBULATORY - MEDICINE [facility] [place] [facility] Jul 10, 2024 08:00 AM AMBULATORY - MEDICINE [facility] [place] [facility] Jul 10, 2024 01:30 PM AMBULATORY - MEDICINE [facility] [place] [facility] Aug 01, 2024 11:00 AM AMBULATORY - MEDICINE [facility] [place] [facility] Aug 06, 2024 10:00 AM AMBULATORY - MEDICINE [facility] [place] [facility] Aug 16, 2024 02:00 PM AMBULATORY - MEDICINE [facility] [place] [facility] Aug 20, 2024 09:00 AM AMBULATORY - MEDICINE [facility] [place] [facility] Aug 22, 2024 11:00 AM AMBULATORY - MEDICINE [facility] [place] [facility] Sep 27, 2024 11:00 AM AMBULATORY - PSYCHIATRY [facility] [place] [facility] Oct 03, 2024 02:00 PM AMBULATORY - MEDICINE [facility] [place] [facility] Oct 08, 2024 11:00 AM AMBULATORY - NONE [facility] [place] [facility] November 15, 2024 11:00 AM AMBULATORY - MEDICINE [facility] [place] [facility] Nov 27, 2024 11:00 AM AMBULATORY - MEDICINE [facility] [place] [facility] Active, Pending, and Scheduled Orders [...] 11:25 AM Consult Order COMMUNITY CARE-UROLOGY Cons Mail Handler Assistant's Choice [facility] Jun 17, 2024 12:00 AM Laboratory - Chemi stry Order FERRITIN BLOOD (SST[facility]SERUM) [facility] Jun 17, 2024 12:00 AM Laboratory - Chemi stry Order IRON & TIBC PANEL BLOOD (SST-SERUM) [facility] Jul 05, 2024 09:52 AM Consult Order COMMUNITY [facility]-RHEUMATOLOGY Cons Mail Handler Assistant's Choice [facility] Lab Results: +/- 30 days of the [...] Type Comment Jun 17, 2024 12:15 PM [facility] FERRITIN SERUM Specimen Type: SERUM No comment entered. Ordering Provider: SILVIA CAI Report Released Date/Time: Jun 17, 2024 11:07 AM Reporting Lab: [facility] [address] [facility] [address] Performing Lab: [address] [address] FERRITIN 37 ng/mL 20-300 Jun 17, 2024 12:15 PM [facility] IRON & TIBC PANEL SERUM Specimen Type: SERUM No comment entered. Ordering Provider: TOÑO CAI Report Released Date/Time: Jun 17, 2024 11:07 AM Reporting Lab: [address] [place] [address] Performing Lab: [facility] [address] [facility] [address] TIBC 374 ug/dL 204-475 IRON 172 ug/dL H 40-160 Transferrin Saturation 46.0 20.0-50.0 Transferrin (TRF) 283 mg/dL 200-360 Jun 17, 2024 12:15 PM [facility] CBC AND DIFF (AUTO) BLOOD Specimen Type: BLOO Ankit No comment entered. Ordering Provider: TOÑO CAI Report Released Date/Time: Jun 17, 2024 11:07 AM Reporting Lab: [address] [address] Performing Lab: [address] [address] WBC 4.91 10*3/uL 4.50-11.00 RBC 4.38 10*6/uL [...] 10*3/uL 0.00-0.00 Jun 04, 2024 10:27 AM [facility] HEMOGLOBIN A1C PANEL BLOOD Specimen Type: BLO [...] May 29, 2024 06:36 PM Reporting Lab: [address] [address] Performing Lab: [address] [address] HEMOGLOBIN A1C 6.5 H 4.0-5.6 Jun 04, 2024 10:27 AM [facility] MICROALBUMIN CREATININE RATIO PANEL URINE Spe cimen Type: URINE No comment entered. Ordering Provider: TOÑO CAI Report Released Date/Time: May 29, 2024 06:36 PM Reporting Lab: [address] [address] Performing Lab: [address] [address] MICROALBUMIN/CREATININE RATIO 36.0 mg/g H 0-29.9 MICROALBUMIN,QUANTITATIVE 2.8 mg/dL RR U NAVAIL CREATININE URINE 77.84 mg/dL Jun 04, 2024 10:27 AM [facility] BASIC METABOLIC PANEL (non-fasting) SERUM Spe cimen Type: SERUM No comment entered. Ordering Provider: TOÑO CAI Report Released Date/Time: May 29, 2024 06:36 PM Reporting Lab: [address] [address] Performing Lab: [address] [address] UREA NITROGEN 19 mg/dL 7-25 GLUCOSE 187 mg/dL H 65-100 SODIUM 140 mmol/L 135-145 POTASSIUM 3.8 mmol/L 3.5-5.0 CHLORIDE 103 mmol/L 100-110 CO2 25 meq/L 20-30 CREATININE, Serum 0.97 mg/dL 0.50-1.40 eGFR(CKD-EPI 2020) 76 mL/min >60 Jun 04, 2024 10:27 AM [facility] TSH SERUM Specimen Type: SERUM No comment entered. Ordering Provider: TOÑO CAI Report Released Date/Time: May 29, 2024 06:36 PM Reporting Lab: [address] [address] Performing Lab: [address] [address] TSH 1.78 u[IU]/mL 0.35-5.00 Jun 04, 2024 10:27 AM [facility] LIPID PANEL, NON FASTING SERUM Specimen Type: SERUM No comment entered. Ordering Provider: TOÑO CAI Report Released Date/Time: May 29, 2024 06:36 PM Reporting Lab: [address] [address] Performing Lab: [address] [address] CHOLESTEROL 151 mg/dL TRIGLYCERIDE 146 mg/dL 0-150 LDL calculated 73 mg/dL 0-129 CHOL/HDL 3.1 HDL CHOLESTEROL 49 mg/dL 40-60 Jun 04, 2024 10:27 AM [facility] LIVER FUNCTION SERUM Specimen Type: SERUM No comment entered. Ordering Provider: TOÑO CAI Report Released Date/Time: May 29, 2024 06:36 PM Reporting Lab: [facility] [address] [address] Performing Lab: [address] [address] PROTEIN,TOTAL 5.5 g/dL L 6.0-8.3 ALBUMIN 3.7 g/dL 3.5-5.0 ALKALINE PHOSPHATASE 78 U/L 40-150 AST 20 U/L 5-34 ALT 19 U/L BILIRUBIN, TOTAL 1.3 mg/dL H 0.2-1.2 BILIRUBIN, DIRECT 0.5 mg/dL 0-0.5 May 08, 2024 11:24 AM [facility] TESTOSTERONE, TOTAL (V) SERUM Specimen Type : SERUM No comment entered. Ordering Provider: TOÑO CAI Report Released Date/Time: Aug 11, 2023 11:52 AM Reporting Lab: [address] [address] Performing Lab: [address] [address] TESTOSTERONE, TOTAL (V) 44.33 ng/dL L 22 0.00-892.00 May 08, 2024 11:24 AM [facility] CBC BLOOD Specimen Type: BLOOD No comment entered. Ordering Provider: TOÑO CAI Report Released Date/Time: Aug 11, 2023 11:52 AM Reporting Lab: [address] [address] Performing Lab: [address] [address] WBC 4.08 10*3/uL L 4.50-11.00 RBC 4.53 10*6/uL 4.23-5.66 HGB 13.1 g/dL 12.8-17 HCT 39.9 39.2-50.4 MCV 88.1 fL 82-99 MCHC 32.8 g/dL 30.8-35.1 PLT 130 10*3/uL L 140-360 RDW-CV 14.5 12.0-16.0 MCH 28.9 pg 26.2-32.6 May 08, 2024 11:24 AM [facility] LIPID PANEL FASTING SERUM Specimen Type: SERU M No comment entered. Ordering Provider: TOÑO CAI Report Released Date/Time: Aug 11, 2023 11:52 AM Reporting Lab: [facility] [address] [facility] [address] Performing Lab: [address] [address] CHOLESTEROL 142 mg/dL TRIGLYCERIDE 179 mg/dL H 0-150 LDL calculated 64 mg/dL 0-129 CHOL/HDL 3.4 HDL CHOLESTEROL 42 mg/dL 40-60 May 08, 2024 11:24 AM [facility] BASIC METABOLIC PANEL (fasting) SERUM Specime n Type: SERUM No comment entered. Ordering Provider: TOÑO CAI Report Released Date/Time: Aug 11, 2023 11:52 AM Reporting Lab: [address] [address] Performing Lab: [address] [address] UREA NITROGEN 19 mg/dL 7-25 GLUCOSE 216 mg/dL H 65-100 SODIUM 142 mmol/L 135-145 POTASSIUM 3.5 mmol/L 3.5-5.0 CHLORIDE 107 mmol/L 100-110 CO2 25 meq/L 20-30 CREATININE, Serum 0.84 mg/dL 0.50-1.40 eGFR(CKD-EPI 2020) 85 mL/min >60 May 08, 2024 11:24 AM [facility] LIVER FUNCTION SERUM Specimen Type: SERUM No comment entered. Ordering Provider: TOÑO CAI Report Released Date/Time: Aug 11, 2023 11:52 AM Reporting Lab: [address] [address] Performing Lab: [address] [address] PROTEIN,TOTAL 5.5 g/dL L 6.0-8.3 ALBUMIN 3.6 g/dL 3.5-5.0 ALKALINE PHOSPHATASE 71 U/L 40-150 AST 20 U/L 5-34 ALT 24 U/L BILIRUBIN, TOTAL 1.1 mg/dL 0.2-1.2 May 08, 2024 11:24 AM [facility] CBC AND DIFF (AUTO) BLOOD Specimen Type: BLOO D No comment entered. Ordering Provider: TOÑO CAI Report Released Date/Time: Aug 11, 2023 11:52 AM Reporting Lab: [facility] [address] [facility] [address] Performing Lab: [facility] [address] [facility] [address] WBC 4.08 10*3/uL L 4.50-11.00 RBC 4.53 [...] 10*3/uL 0.00-0.00 May 08, 2024 11:23 AM [facility] OSMOLALITY (SERUM) SERUM Specimen Type: SERUM No comment entered. Ordering Provider: ALLIE CUELLO Report Released Date/Time: Nov 27, 2023 07:39 PM Reporting Lab: [address] [place] [address] Performing Lab: [facility] [address] [facility] [address] OSMOLALITY (SERUM) 299 280-300 May 08, 2024 11:23 AM [facility] CALCIUM SERUM Specimen Type: SERUM Comment: *GLUCOSE Not Performed: May 08, 2024@11:36 by [id number] *IMPORT SPECIALIST Reason: Duplicate *UREA NITROGEN Not Performed: May 08, 2024@11:36 by [id number] *IMPORT SPECIALIST Reason: Duplicate *CREATININE (eGFR 2020) Not Performed: May 08, 2024@11:36 by [id number] *IMPORT SPECIALIST Reason: Duplicate *SODIUM Not Performed: May 08, 2024@11:36 by [id number] *IMPORT SPECIALIST Reason: Duplicate *CHLORIDE Not Performed: May 08, 2024@11:36 by [id number] *IMPORT SPECIALIST Reason: Duplicate *CO2 Not Performed: May 08, 2024@11:36 by [id number] *IMPORT SPECIALIST Reason: Duplicate *POTASSIUM Not Performed: May 08, 2024@11:36 by [id number] *IMPORT SPECIALIST Reason: Duplicate Ordering Provider: ALLIE CUELLO Report Released Date/Time: Nov 27, 2023 07:39 PM Reporting Lab: [address] [address] Performing Lab: [address] [address] CALCIUM 8.5 mg/dL 8.5-10.2 May 08, 2024 11:23 AM [facility] VITAMIN D (25-OH) SERUM Specimen Type: SERUM No comment entered. Ordering Provider: ALLIE CUELLO Report Released Date/Time: Nov 27, 2023 07:39 PM Reporting Lab: [facility] [address] [facility] [address] Performing Lab: [address] [address] VITAMIN D (25-OH) 46 ng/mL 20-50 Social [...] place. Date/Time Current Smoking Status Comment [facility] Jun 05, 2023 11:00 AM VA-TOBACCO FORMER USER [place] [facility] [place] [facility] Tobacco Use History This section [...] [facility] [place] [facility] Jun 06, 2022 01:00 PM VA-TOBACCO FORMER USER [facility] [place] [facility] Jun 06, 2022 01:00 PM VA-TOBACCO QUIT 15 YRS OR MORE [facility] [place] [facility] Jun 30, 2021 02:37 PM VA-TOBACCO FORMER USER [place] [facility] [place] [facility] Jun 30, 2021 02:37 PM VA-TOBACCO QUIT 5 TO < 15 YRS [facility] [place] [facility] May 22, 2020 03:30 PM VA-TOBACCO NEVER USED [place] [facility] [place] [facility] May 08, 2018 02:03 PM VA-TOBACCO FORMER USER [facility] [place] [facility] May 08, 2018 02:03 PM VA-TOBACCO QUIT 15 YRS OR MORE [facility] [place] [facility] November 10, 2017 02:33 PM QUIT TOBACCO USE > 7 YEARS AGO [facility] [place] [facility] October 21, 2016 01:55 PM QUIT TOBACCO USE > 7 YEARS AGO [facility] [place] [facility] Sep 18, 2015 11:24 AM QUIT TOBACCO USE > 7 YEARS AGO stopped 50 years ago [facility] [place] [facility] May 19, 2005 08:01 AM HISTORY OF SMOKING [facility] [place] [facility] May 31, 2004 01:02 PM HISTORY OF SMOKING [facility] [place] [facility] Jun 04, 2003 07:57 AM HISTORY OF SMOKING [facility] [place] [facility] Jun 03, 2002 01:11 PM HISTORY OF SMOKING [facility] Jun 03, 2002 01:11 PM QUIT TOBACCO USE > 7 YEARS AGO [facility] Advance Directives: All historical and current Section Date Range: From patient's date of to the date document was created. This section includes ALL of a patient's completed or amended [place] Advance and Rescinded Directives. The entries below indicate that a directive exists for the patient, but an actual copy is not included with this document. The data comes from all [place] facilities. Date Advance Directives Provider Source Jun 02, 2023 ADVANCE DIRECTIVE JENNIFER QUIROS [facility] Radiology Reports: +/- 30 days [...] the Encounter. The data comes from all [place] treatment facilities. Date/Time Radiology Report Provider Source Jun 17, 2024 11:[address] ABDOMEN AND PELVIS WITH CONTRAST: BEBO SHEPHERD Nisa [id number] -[id number] M Ex Date: JUN 17, 2024@11:32 Req Phys: TOÑO CAI Loc: [facility] PACT 3 PA (Req'g Loc) Img Loc: [facility]/CT Service: Unknown [facility] [place] [address] THIS IS AN AMENDED REPORT (Case [id number] COMPLETE) CT ABDOMEN AND PELVIS WITH CONTRA(CT Detailed) CPT:23660 Contrast Media : Non-ionic Iodinated Reason for [...] 23, 2024 Date Verified: AUG 23, 2024 Tax Advisor E-Sig:/ES/NAPOLEON Zelaya LEXI WEAVER Report: Exam: CT of abdomen and pelvis [...] immediate attention required Primary Interpreting Staff: EVGENY IGNACOI, Staff Physician VERIFIED BY: NAPOLEON ELLIOTT JR, Radiologist /EAD NAPOLEON ELLIOTT JR [facility] Encounter Notes: [...] Health from the [facility] to the [facility] through the [facility] Clinical Resource Hub. ID & Diagnoses: 84-year-old male with major depressive disorder (0% SC). , father of 4 adult children. Lives alone with a cat and a lot of fish in a large fish tank. Served in [employer] for 6 yrs. 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 History of Present Illness: Even after citalopram was reduced from 10 to 5 mg/day for depression, he has been doing well. He denies clinical depression (0/10, 10 being worst). Thus, he has agreed to discontinue citalopram at this time. 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 Denies active stressors or concerns. He has recovered from recent rib crack (no surgery needed) after he fell down. 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 He sees his medical doctors regularly for medical issues (including back pain and retina issue). He has several friends. He has a good relationship with his girlfriend he recently met at a catholic, who is about 15 yrs younger than him. She is now in [place]. He still visit his '[place] almost daily. He talks and sees his children, grandchildren, and great-grandchildren very often (usually once a week). He enjoys making wood toys, watching movies, doing yardwork and lawn maintenance, and meeting with catholic people. Denies alcohol, drug, or gambling problems. No acute psychiatric issues noted. MENTAL STATUS EXAM: Appearance/Behavior: pleasant Speech: normal rate/rhythm Mood: good Affect: mood congruent Perceptual disturbance: no visual/auditory hallucinations Thought process: goal directed Thought content: no delusions Suicidal/Violent thoughts: none Cognition/Memory: grossly intact Insight/Judgment: good Risk assessment: Purdum is determined to have LOW ACUTE RISK to self or others at this time. Purdum is determined to have LOW CHRONIC RISK---based [...] ] no [ x ] yes Therapeutic Kathleen [ ] no [ x ] yes [...] 10/11/2023 ALLIE CUELLO Aortic Valve Disorder (SCT 7898788) 10/09/2023 TOÑO CAI Cerebrovascular disease I67.9 04/26/2023 [...] DE LA CRUZ MD Hypertension (SNOMED CT 73244440) I 04/26/2023 ALLIE CUELLO Spinal Stenosis * (ICD-9-CM 724.00) 02/05/2010 VESTA DE LA CRUZ MD Hyperlipidemia (SNOMED CT 82112720) 04/26/2023 ALLIE CUELLO Osteoarthritis * (ICD-9-CM 715.90) 07/02/2008 PAUL ACOSTA Lower Back Pain * (ICD-9-CM 724.2) 07/02/2008 PAUL ACOSTA Vertigo 780.4 11/28/2007 PAUL ACOSTA Diabetes mellitus type 2 (SNOMED CT 09/17/2022 ALLIE CUELLO Gastroesophageal Reflux Disorder 53 11/28/2007 PAUL ACOSTA ASSESSMENT: -Major depressive disorder: stable PLAN: -Discontinue citalopram (as above) -Monitor his mental health without antidepressant -Follow-up: Return to clinic with medical technical writer on 10/02 or earlier as needed /benny Harper MD PSYCHIATRIST, PSYCHIATRY Signed: 06/05/2024 13:45 07/30/2024 ADDENDUM STATUS: COMPLETED Since medical technical writer is leaving the telehealth team, medical technical writer called this patient and left a message explaining that the patient is being transferred to Dr. Collins. Plan: Return to clinic with Dr. Collins in 1-2 months /benny Harper MD PSYCHIATRIST, PSYCHIATRY Signed: 07/30/2024 15:08 RADHA HARPER [facility]
--- OUTSIDE RECORDS SUMMARY | 2024-10-01 11:28 | XMS_ITS | Encounter Summary ---
Author Name [facility] [place] [facility] [place] [facility] [place] Address [address] [place] [id number] Care Team Providers Care Notch Machine Operator Name Role Phone TOÑO PETER Primary [...] O MEDEX BRON E Mar 19, 2004 [id number] HOLLIE SHEPHERD PATIENT [place] SUPPLEMEN MASTER MEDEX BRONZ E Mar 19, 2004 [id number] HOLLIE SHEPHERD PATIENT [place] SUPPLEMEN MASTER MEDEX BRONZ E Mar 19, 2004 [id number] [phone] HOLLIE SHEPHERD PATIENT BCBS [facility] MEDICARE SUPPLEMEN MASTER PSUED O MEDEX BRONZ E Mar 19, 2004 [id number] [phone] HOLLIE SHEPHERD PATIENT MEDICARE (WNR) MEDICARE (M) PART B Mar 19, 2004 PART B [id number] HOLLIE SHEPHERD PATIENT MEDICARE (WNR) MEDICARE (M) PART B Mar 19, 2004 PART B [id number] [phone] HOLLIE SHEPHERD PATIENT MEDICARE (WNR) MEDICARE (M) PART B Mar 19, 2004 PART B [id number] HOLLIE SHEPHERD ALD PATIENT MEDICARE (WNR) MEDICARE (M) PART A Feb 17, 2003 PART A [id number] HOLLIE SHEPHERD ALD PATIENT MEDICARE (WNR) MEDICARE (M) PART A Feb 17, 2003 PART A [id number] [phone] HOLLIE SHEPHERD ALD PATIENT MEDICARE (WNR) MEDICARE (M) PART A Feb 17, 2003 PART A [id number] [phone] HOLLIE SHEPHERD PATIENT MEDICARE (WNR) MEDICARE (M) PART A Feb 17, 2003 PART A [id number] [phone] HOLLIE SHEPHERD PATIENT MEDICARE (WNR) MEDICARE (M) PART B Feb 17, 2003 PART B [id number] HOLLIE SHEPHERD PATIENT MEDICARE (WNR) MEDICARE (M) PART A Feb 17, 2003 PART A [id number] [phone] HOLLIE SHEPHERD PATIENT MEDICARE (WNR) MEDICARE (M) PART B Feb 17, 2003 PART B [id number] HOLLIE SHEPHERD PATIENT Selected Encounter This section includes the information on record at [place] for the Encounter. Date/Time Encounter Type Encounter Description Reason Pro vider Source Apr 28, 2024 10:47 PM Outpatient Encounter ADMIN PAT ACTIVTIES (MASNONCT) IHE Encounter Template Text not used by [place] Plan of Treatment: Future Appointments (+ 6 months) and Future Tests (+/- 45 days) The Plan of Treatment section includes future care activities for the patient from all [place] treatmentfacilities. This section includes future appointments and future orders which are active, pending or scheduled. Future Appointments This section includes appointments that were scheduled to occur 6 months from the date of the Encounter, up to a maximum of 20 appointments. The data comes from all [place] treatment facilities. Appointment Date/Time Appointment Type Appointme nt Facility Name May 02, 2024 10:00 AM [facility]UL[facility] [place] [facility] May 08, 2024 10:00 AM AMBULATORY [facility] [place] [facility] May 29, 2024 11:30 AM AM[facility]ULATORY [facility] MEDICINE [facility] [place] [facility] Jun 05, 2024 12:00 PM AMBULATORY [place] [facility] Jun 05, 2024 12:00 PM AMBULATORY [facility]IATRY [facility] [place] [facility] Jun 17, 2024 10:30 AM AM[facility]ULATORY [facility] MEDICINE [facility] [place] [facility] Jun 17, 2024 10:31 AM [facility]ULATORY [facility]ICINE [facility] [place] [facility] Jun 17, 2024 11:45 AM AMBULATORY - NONE [facility] [place] [facility] Jun 21, 2024 11:00 AM AM[facility]ULATORY [facility]ICINE [facility] [place] [facility] Jul 05, 2024 10:00 AM [facility]ATORY [facility]ICINE [facility] [place] [facility] Jul 10, 2024 08:00 AM [facility]ATORY [facility]ICINE [facility] [place] [facility] Jul 10, 2024 01:30 PM [facility]ULATORY [facility] MEDICINE [facility] [place] [facility] Aug 01, 2024 11:00 AM [facility]AT[facility] [place] [facility] Aug 06, 2024 10:00 AM [facility]AT[facility]ICINE [facility] [place] [facility] Aug 16, 2024 02:00 PM AM[facility]ULATORY [facility] MEDICINE [facility] [place] [facility] Aug 20, 2024 09:00 AM AM[facility]ULATORY [facility] MEDICINE [facility] [place] [facility] Aug 22, 2024 11:00 AM [facility]ATORY [facility]INE [facility] [place] [facility] Sep 27, 2024 11:00 AM AMBULATORY - PS[facility]CHIATRY [facility] [place] [facility] Oct 03, 2024 02:00 PM AM[facility]ULATORY [facility] MEDICINE [facility] [place] [facility] Oct 08, 2024 11:00 AM AMBULATORY - NONE [facility] [place] [facility] Active, Pending, and Scheduled Orders This section includes a listing of several types of active, pending, and scheduled orders, including clinic medications orders, diagnostic test orders, procedure orders and consult orders; where the start date of the order is 45 days before the date of the Encounter or 45 days after the date of theEncounter. The data comes from all [place] treatment facilities. Test Date/Time Test Type Test Details Facility Name Jun 10, 2024 11:25 AM Consult Order [facility] Cons Waste Machine Tender's Choice [facility] Lab Results: +/- 30 days of the encounter This section includes the Chemistry and Hematology Lab Results on record with [place] for the patient. Radiology Reports and Pathology Reports are provided separately, in subsequent sections. Lab Results This section contains the Chemistry/Hematology Results that were resulted 30 days before or 30 daysafter the date of the Encounter. Date/Time Source Result Type Result - Unit Interpretation Reference Range Specimen Type Comment May 08, 2024 11:24 AM [facility] TESTOSTERONE, TOTAL (WHV) SERUM Specimen Type : SERUM No comment entered. Ordering Provider: SILVIA PETER Report Released Date/Time: Aug 11, 2023 11:52 AM Reporting Lab: [address] [address] Performing Lab: [address] [address] TESTOSTERONE, TOTAL (V) 44.33 ng/dL L 22 0.00-892.00 May 08, 2024 11:24 AM [facility] CBC BLOOD Specimen Type: BLOOD No comment entered. Ordering Provider: TOÑO PETER Report Released Date/Time: Aug 11, 2023 11:52 AM Reporting Lab: [address] [address] Performing Lab: [address] [address] WBC 4.08 10*3/uL L 4.50-11.00 RBC 4.53 10*6/uL 4.23-5.66 HGB 13.1 g/dL 12.8-17 HCT 39.9 39.2-50.4 MCV 88.1 fL 82-99 MCHC 32.8 g/dL 30.8-35.1 PLT 130 10*3/uL L 140-360 RDW-CV 14.5 12.0-16.0 MCH 28.9 pg 26.2-32.6 May 08, 2024 11:24 AM [facility] LIPID PANEL FASTING SERUM Specimen Type: SERU M No comment entered. Ordering Provider: TOÑO PETER Report Released Date/Time: Aug 11, 2023 11:52 AM Reporting Lab: [address] [address] Performing Lab: [address] [address] CHOLESTEROL 142 mg/dL TRIGLYCERIDE 179 mg/dL H 0-150 LDL calculated 64 mg/dL 0-129 CHOL/HDL 3.4 HDL CHOLESTEROL 42 mg/dL 40-60 May 08, 2024 11:24 AM [facility] BASIC METABOLIC PANEL (fasting) SERUM Specime n Type: SERUM No comment entered. Ordering Provider: TOÑO PETER Report Released Date/Time: Aug 11, 2023 11:52 AM Reporting Lab: [address] [address] Performing Lab: [address] [address] UREA NITROGEN 19 mg/dL 7-25 GLUCOSE 216 mg/dL H 65-100 SODIUM 142 mmol/L 135-145 POTASSIUM 3.5 mmol/L 3.5-5.0 CHLORIDE 107 mmol/L 100-110 CO2 25 meq/L 20-30 CREATININE, Serum 0.84 mg/dL 0.50-1.40 eGFR(CKD-EPI 2020) 85 mL/min >60 May 08, 2024 11:24 AM [facility] LIVER FUNCTION SERUM Specimen Type: SERUM No comment entered. Ordering Provider: TOÑO PETER Report Released Date/Time: Aug 11, 2023 11:52 AM Reporting Lab: [address] [address] Performing Lab: [facility] [address] [address] PROTEIN,TOTAL 5.5 g/dL L 6.0-8.3 ALBUMIN 3.6 g/dL 3.5-5.0 ALKALINE PHOSPHATASE 71 U/L 40-150 AST 20 U/L 5-34 ALT 24 U/L BILIRUBIN, TOTAL 1.1 mg/dL 0.2-1.2 May 08, 2024 11:24 AM [facility] CBC AND DIFF (AUTO) BLOOD Specimen Type: BLOO D No comment entered. Ordering Provider: TOÑO PETER Report Released Date/Time: Aug 11, 2023 11:52 AM Reporting Lab: [facility] [address] [address] Performing Lab: [address] [address] WBC 4.08 10*3/uL L 4.50-11.00 RBC 4.53 [...] 10*3/uL 0.00-0.00 May 08, 2024 11:23 AM [facility] OSMOLALITY (SERUM) SERUM Specimen Type: SERUM No comment entered. Ordering Provider: ALLIE CUELLO Report Released Date/Time: Nov 27, 2023 07:39 PM Reporting [facility]: [facility] [address] [address] Performing Lab[facility] [address] [facility] [address] OSMOLALITY (SERUM) 299 280-300 May 08, 2024 11:23 AM [facility] CALCIUM SERUM Specimen Type: SERUM Comment: *GLUCOSE Not Performed: May 08, 2024@11:36 by [id number] *ELECTRIC HOIST OPERATOR Reason: Duplicate *UREA NITROGEN Not Performed: May 08, 2024@11:36 by [id number] *ELECTRIC HOIST OPERATOR Reason: Duplicate *CREATININE (eGFR 2020) Not Performed: May 08, 2024@11:36 by [id number] *ELECTRIC HOIST OPERATOR Reason: Duplicate *SODIUM Not Performed: May 08, 2024@11:36 by [id number] *ELECTRIC HOIST OPERATOR Reason: Duplicate *CHLORIDE Not Performed: May 08, 2024@11:36 by [id number] *ELECTRIC HOIST OPERATOR Reason: Duplicate *CO2 Not Performed: May 08, 2024@11:36 by [id number] *ELECTRIC HOIST OPERATOR Reason: Duplicate *POTASSIUM Not Performed: May 08, 2024@11:36 by [id number] *ELECTRIC HOIST OPERATOR Reason: Duplicate Ordering Provider: ALLIE CUELLO Report Released Date/Time: Nov 27, 2023 07:39 PM Reporting Lab: [facility] [address] [address] Performing Lab: [facility] [address] [address] CALCIUM 8.5 mg/dL 8.5-10.2 May 08, 2024 11:23 AM [facility] VITAMIN D (25-OH) SERUM Specimen Type: SERUM No comment entered. Ordering Provider: ALLIE CUELLO Report Released Date/Time: Nov 27, 2023 07:39 PM Reporting Lab: [facility] [place] [facility] [address] [address] Performing Lab: [place] [facility] [place] [facility] [address] [address] VITAMIN D (25-OH) 46 ng/mL 20-50 Social History: Smoking Status (Most current) and Tobacco Use (All prior to encounter date) This section includes the most current, and the historical, smoking and tobacco- related health factors from the [place] facility where the Encounter took place. Current Smoking Status This section includes the most current smoking, or tobacco-related health factor, from the [place] facility where the Encounter took place. Date/Time Current Smoking Status Comment [facility] Jun 05, 2023 11:00 AM VA-[place]BACCO FORMER USER [place] [facility] [place] [facility] Tobacco Use History This section includes a history of the smoking, or tobacco-related health factors, that were collected on or before the date of the Encounter. The data comes from the [place] facility where the Encounter took place. Date/Time Smoking Status/Tobac co Use Comment Facility Jun 05, 2023 11:00 AM VA-TOBACCO QUIT 15 YRS OR MORE [facility] [place] [facility] Jun 06, 2022 01:00 PM VA-TOBACCO FORMER USER [facility] [place] [facility] Jun 06, 2022 01:00 PM VA-TOBACCO QUIT 15 YRS OR MORE [facility] [place] [facility] Jun 30, 2021 02:37 PM VA-TOBACCO FORMER USER [facility] [place] [facility] Jun 30, 2021 02:37 PM VA-TOBACCO QUIT 5 TO < 15 YRS [facility] [place] [facility] May 22, 2020 03:30 PM VA-TOBACCO NEVER USED [facility] [place] [facility] May 08, 2018 02:03 PM VA-TOBACCO FORMER USER [facility] [place] [facility] May 08, 2018 02:03 PM VA-TOBACCO QUIT 15 YRS OR MORE [facility] [place] [facility] November 10, 2017 02:33 PM QUIT TOBACCO USE > 7 YEARS AGO [facility] [place] [facility] October 21, 2016 01:55 PM QUIT TOBACCO USE > 7 YEARS AGO [facility] Sep 18, 2015 11:24 AM QUIT TOBACCO USE > 7 YEARS AGO stopped 50 years ago [facility] May 19, 2005 08:01 AM [facility] May 31, 2004 01:02 PM [facility] Jun 04, 2003 07:57 AM [facility] Jun 03, 2002 01:11 PM [facility] Jun 03, 2002 01:11 PM QUIT TOBACCO USE > 7 YEARS AGO [facility] Advance Directives: All historical and current Section Date Range: From patient's date of to the date document was created. This section includes ALL of a patient's completed or amended [place] Advance and Rescinded Directives. The entries below indicate that a directive exists for the patient, but an actual copy is not included with this document. The data comes from all [place] facilities. Date Advance Directives Provider Source Jun 02, 2023 ADVANCE DIRECTIVE JENNIFER QUIROS [facility] Radiology Reports: +/- 30 days [...] the Encounter. The data comes from all [place] treatment facilities. Date/Time Radiology Report Provider Source Apr 02, 2024 02:24 PM SHOULDER,COMPLETE(RIGHT): BEBO SHEPHERD Nisa [id number] [phone] M Exm Date: APR 02, 2024@14:24 Req Phys: TOÑO PETER Loc: C[facility]/NO/PACT 3 (Req'g Loc) Img Loc: [facility]/BUILDING 1 Service: Unknown [facility] [place] [address] (Case 50 COMPLETE) SHOULDER,COMPLETE(RIGHT) (RAD Detailed) CPT:55115 Reason for Study: lateral pain after a fall last week. Clinical History: Report Status: Verified Date Reported: APR 02, 2024 Date Verified: APR 02, 2024 Timers Inspector E-Sig:/ES/NAPOLEON ELLIOTT JR Report: Study: AP internally [...] Primary Interpreting Staff: NAPOLEON ELLIOTT JR, Radiologist (Timers Inspector) /NAPOLEON SCHMITZ JR [facility] Encounter Notes: All associated encounter notes This section contains the clinical notes associated to the Encounter. Date/Time Encounter Note(s) Provider Source Apr 28, 2024 10:47 PM PHARMACY NOTE: LOCAL TITLE: PHARMACY CUSTOMER CARE MEDICATION RENEWAL STANDARD TITLE: PHARMACY NOTE DATE OF NOTE: APR 28, 2024@22:47 ENTRY DATE: APR 28, 2024@22:47:57 AUTHOR: BENJAMIN BOYD COSIGNER: URGENCY: STATUS: COMPLETED Date: Apr Division: [facility] referred by Pharmacy Call Center for medication renewal: Non-controlled/maintenance medication Medications requested: [id number] MULTIVIT/OPHTH AREDS2/LUTE/ZEAX CAP/TAB Defer to primary care provider To be mailed . Please review and renew if appropriate. *This note was generated by [facility] Customer [facility]. If you have any questions or need assistance, do not contact this author. Please refer all questions to your local, on-site pharmacy departments. /thomas/ BENJAMIN BOYD group home supervisor Signed: 04/28/2024 22:48 Receipt Acknowledged By: 04/29/2024 08:44 /thomas/ Toño Peter PA-C STAFF PHYSICIAN SOCIOLOGY TEACHER 04/30/2024 07:56 /thomas/ RADHA MATOS, MSN, RN, CNL PRIMARY CARE TEAM NURSE for [facility]EWART [facility]
== END 2024-10-01 09:55 | disposition home or self-care (01) ==
LOC: HO.CT 09:54
PROVIDERS: PCP Internal Medicine; Visit Provider Student in an Organized Health Care Education/Training Program
DX: R09.89 Other specified symptoms and signs involving the circulatory and respiratory systems (principal); M06.09 Rheumatoid arthritis without rheumatoid factor, multiple sites
CPT/HCPCS: 71250

== ENCOUNTER → 2024-10-01 10:04 | Outpatient (BNV) | payer OTHER, SELFPAY | PROVIDERS: PCP Internal Medicine; Visit Provider Radiology Diagnostic Radiology | DX: I34.81 Nonrheumatic mitral (valve) annulus calcification (principal); I25.10 Atherosclerotic heart disease of native coronary artery without angina pectoris; R91.1 Solitary pulmonary nodule | CPT/HCPCS: 71250 ==

== ENCOUNTER 2024-10-29 13:40 | Outpatient (AMB) | payer OTHER, SELFPAY ==
--- NOTE | 2024-10-29 14:03 | A.OFFVIS_ITS ---
Vital Signs 10/29/24 14:04 Height 5 ft 7 in Weight 157 lb 13.616 oz BMI 24.7 BP 138/80 Blood Pressure Location Lt brachial Position Sitting Pulse 92 Pulse Source Pulse Oximeter Pulse Oximetry (%) 96 Oxygen Delivery Method Room Air Intake Visit Reasons: follow up Intake Note: Patient c/o pain in left hip and right arm today, and all over his body. Allergies Penicillins Allergy (Severe, Verified 10/29/24 14:08) ITCHING-SEVERE piperacillin [From Zosyn] Allergy (Mild, Verified 10/29/24 14:08) JAUNDICE tazobactam [From Zosyn] Allergy (Mild, Verified 10/29/24 14:08) JAUNDICE HPI Comments Details: Patient is an 84-year-old male hypertension, hyperlipidemia, aortic stenosis, diabetes now with insulin pump, osteoporosis with pathological fracture of thoracic vertebrae, seropositive rheumatoid arthritis s/p bilateral carpal fusion, bilateral CTS s/p release and polyarticular osteo arthritis here today for follow up Interval History: Patient last seen 07/31/2024 with me. At that time he was following up for his seropositive rheumatoid arthritis on hydroxychloroquine, Actemra, leflunomide and prednisone. Due to his recent diverticulitis complicated by perforation his Actemra was stopped. He was also complaining of right medial knee pain which was consistent with a pes anserine bursitis and he received a steroid injection. His prednisone was decreased to 5 mg and No additional immunosuppression was added at that time Today, Patient is complaining of arm pain bilaterally and butt pain No prolonged AM stiffness Rheumatologic History: Seronegative initially diagnosed has PMR around 2004 Was only on prednisone until 2021 when HCQ was added with little benefit MTX added 08/2022- -11/08 not particularly effective and patient developed tender skin nodule on LT forearm Enbrel 11/08-02/08 ineffective Actemra 03/11 effective HCQ DC 11/2023, restarted 05/2024 Leflunomide ?start date Current Rheumatology Medication(s): Hydroxychloroquine 200mg bid daily Leflunomide 10mg daily Prednisone 5mg [facility] Medical History (Updated 07/31/24 @ 15:07 by Beatriz Soto MD) Encounter for monitoring leflunomide therapy Long-term use of Plaquenil Symptomatic stenosis of left carotid artery Aortic stenosis Rheumatoid arthritis Carpal tunnel syndrome Former smoker Insulin pump in place Diabetes Elevated cholesterol CAD (coronary artery disease) HTN (hypertension) Surgical History History of left-sided carotid endarterectomy (02/15/23) Hx of carpal tunnel repair Hx of cardiac catheterization History of shoulder surgery History of cholecystectomy History of hand surgery Hx of hemorrhoidectomy Hx of lumbar discectomy H/O colonoscopy Family History Father Heart attack Heart disease Mother Pacemaker Cataracts, bilateral Sister Heart problem Heart valve replaced Arthritis Brother Heart attack Brother Rectal cancer Sister History of modified radical mastectomy of right breast Social History Household Members: None Housing: House Are you a primary home day care provider to a significant other at home: No Do you presently have visiting nurse or other home services: No Alcohol intake: never Patient Tobacco Use Status: Former Tobacco user Tobacco use type: Cigarette Years Smoked: 5 YEARS Advance Directives Date on File: 02/07/23 service: No Current occupational status: employed Current occupation: [employer], rt handed Review of Systems Const Details: Review of Systems Constitutional: Denies fever, chills, weight loss ENT: Denies vision changes, eye pain or eye redness, dental caries, dry mouth GI: Denies nausea, vomiting, diarrhea, abdominal pain, change in BM Pulm: Denies SOB, GARCIA, hemoptysis, wheezing Cards: Denies chest pain, palpitations Skin: Denies Raynaud's, rash, nail changes, photosensitivity, FLOOR SURFACER: Denies headaches, weakness, paresthesias, recurrent falls MSK: as per HPI All other systems reviewed and are unremarkable except noted above Physical Exam Vital Signs: Last Vital Signs Pulse 92 10/29/24 14:04 BP 138/80 10/29/24 14:04 Pulse Ox 96 10/29/24 14:04 Oxygen Delivery Method Room Air 10/29/24 14:04 BMI result Body Mass Index 24.7 Vital signs reviewed Physical Examination CONSTITUITIONAL Patient alert and cooperative. Well appearing and in no apparent painful di stress HEENT Conjunctiva and sclera clear. ?Pupils equal round and reactive to light. ?No lymphadenopathy. ? CHEST/RESPIRATORY SYSTEM Normal respiratory effort and able to speak in complete sentences. ?Clear to auscultation bilaterally. ?No crackles, rales, rhonchi, wheezes heard. CARDIAC SYSTEM Regular rate and rhythm. ?S1 and S2 heard no murmurs. ?Radial pulses intact bilaterally MSK Hands: ?Good materials manager strength bilaterally. No deformities noted. ?No synovitis noted to the MCPs, PIPs or DIPs. ?No tenderness to palpation of these joints. Heberden's nodes noted Wrists: ?Bilateral wrist fusion Elbows: Full range of motion without pain. No tenderness, weakness, swelling, increased warmth or erythema. Shoulders: Full range of motion without pain. No tenderness, weakness, swelling, increased warmth or erythema. TTP of biceps tendon Hips: Full range of motion without pain. Hip bursa: No tenderness to palpation Pain with palpation of the left gluteus medius/minimus tendons Knees: ?Full range of motion. ?No TTP of the pes anserine bursa Ankles: Full range of motion. ?No tenderness, swelling, increased warmth or erythema.? Feet: ?Negative squeeze test. ?No tenderness to palpation or swelling of the MTPs. Tender points:?No tenderness to palpation of the bilateral trapezius, supraspinatus, greater trochanters, anterior costochondral junctions, bilateral gluteal areas, bilateral suboccipital muscle insertions SKIN Skin intact without rashes. Results Reviewed Results Reviewed: Laboratory Tests 06/14/24 07/05/24 13:23 13:35 WBC 5.4 RBC 3.21 L D Hgb 10.1 L D Hct 30.0 L D Plt Count 82 L D ESR 1 Sodium 145 Potassium 3.8 Chloride 111 H Carbon Dioxide 30 H BUN 23 H Creatinine 0.75 Calcium 7.9 L D Magnesium 1.8 Total Bilirubin 1.1 H AST 31 ALT 18 Alkaline Phosphatase 64 C-Reactive Protein < 0.04 Assessment & Plan Assessment & Plan (1) Rheumatoid arthritis: Comment: Seronegative initially diagnosed has PMR around 2004 Was only on prednisone until 2021 when HCQ was added with little benefit MTX added 08/2022- -11/08 not particularly effective and patient developed tender skin nodule on LT forearm Enbrel 11/08-02/08 ineffective Actemra 03/11 effective - 07/2024. Diverticulitis with perforation [facility] 11/2023 Code(s): M06.9 - Rheumatoid arthritis, unspecified Category: Medical Qualifiers: Rheumatoid arthritis location: multiple sites Rheumatoid factor presence: without rheumatoid factor Qualified Code(s): M06.09 - Rheumatoid arthritis without rheumatoid factor, multiple sites Plan: #Seronegative RA Patient is a pleasant 84-year-old male with seronegative rheumatoid arthritis. Last visit Actemra was held due to his history of diverticulitis with perforation. Since that visit his RA remains in remission. His current complaints are based on more mechanical issues. Exercises given for tendonitis and topical buprenorphine 5mcg given for pain control 7 days on 7 days off Plan - Hydroxychloroquine 200mg daily - Leflunomide 10mg daily - Gabapentin 600mg tid daily - Decrease prednisone to 2.5mg daily - Buprenorphine 5mcg 7 days on, 7 days off - RTC 3 months - Labs before visit: CBC, CMP, ESR, CRP, hepatitis panel, T spot (2) Long-term use of Plaquenil: Code(s): Z79.899 - Other fci (current) drug therapy Category: Medical Plan: #Long-term Use of Hydroxychloroquine Discussed with patient the risks and benefits of hydroxychloroquine in managing the rheumatic condition Benefits include: - Reduced pain, reduce mortality, maintenance of remission and reduction of flares Risks include: - GI upset, skin hyperpigmentation, retinal toxicity (especially after more than 5 years of use), myopathy Advised yearly ophthalmology visits (3) Encounter for monitoring leflunomide therapy: Code(s): Z51.81 - Encounter for therapeutic drug level monitoring; Z79.69 - terminal carman (current) use of other immunomodulators and immunosuppressants Category: Medical Plan: #Long-term leflunomide Discussed with patient the benefits and risks of leflunomide for managing the rheumatic condition Benefits include: - Reduced pain, maintenance of remission and reduction of flares Risks include: - GI upset especially diarrhea, skin rash, cytopenias, hepatotoxicity, weight loss, neuropathy Leflunomide is highly teratogenic. ?Has a very long half-life. ?Needs cholestyramine washout if there is desire for Initiation: ?CBC, BMP, LFTs, hepatitis-B and C serologies every 2-4 weeks for 3 months Monitoring: ?CBC, BMP, LFTs, hepatitis B and C serologies Plan I spent 30 minutes reviewing the record and labs, taking a history, examining the patient, discussing the treatment plan and documenting in the medical record Medications: New buprenorphine 5 mcg/hour place on for 7 days then off for 7 days 1 patch transdermal Q7D 4 ea 3RF M15.9 - Polyosteoarthritis, unspecified Changed From prednisone 5 mg PO DAILY 90 tabs 1RF M06.09 - Rheumatoid arthritis without rheumatoid factor, multiple sites To prednisone 2.5 mg PO DAILY 90 tabs 1RF M06.09 - Rheumatoid arthritis without rheumatoid factor, multiple sites Refilled leflunomide 20 mg PO DAILY 90 tabs 1RF M06.09 - Rheumatoid arthritis without rheumatoid factor, multiple sites, Z51.81 - Encounter for therapeutic drug level monitoring, Z79.69 - terminal carman (current) use of other immunomodulators and immunosuppressants gabapentin 600 mg PO TID 270 tabs 1RF M06.09 - Rheumatoid arthritis without rheumatoid factor, multiple sites hydroxychloroquine Take 1 tab daily Mon - Fri and 1 tab twice a day Sat-Sun Do not take with citalopram 108 tabs 1RF Coding Level of Care Code Est Pt Level 4 (15532) Complex EM visit Add On G2211 Diagnoses Rheumatoid arthritis of multiple sites with negative rheumatoid factor M06.09 Rheumatoid arthritis location: multiple sites Rheumatoid factor presence: without rheumatoid factor Long-term use of Plaquenil Z79.899 Encounter for monitoring leflunomide therapy Z51.81; Z79.69
[2024-10-29 14:04] VITALS: BP 138/80; PULSE 92; O2SAT 96; BMI 24.7
--- OUTSIDE RECORDS SUMMARY | 2024-10-29 14:46 | XMS_ITS | Encounter Summary ---
Author Organization [facility] Address [address] [place] [address] Care Team Providers Care Television Engineer Name Role Phone Jamilah Bueno Primary Care Provider [phone] Encounter Details Date Type Department Care Team (Late st Contact Info) Description 07/29/2024 Lab Requisition [facility] - Main Lab [address] [facility] [place] [address] Trina Brock MD [address] [place] [id number] Type 2 diabetes mellitus without complications (CMS/HCC V24, CMS/HCC V28); Atherosclerotic heart disease of [place] coronary artery without angina pectoris; Benign prostatic [...] Description 10/30/2024 1:30 PM EDT Ancillary Procedure [facility] Cardiology [facility] [address] [place] [address] 11/04/2024 3:40 PM EDT Office Visit [facility] Cardiology [facility] [address] [place] [address] Goldy Butler NP [address] [place] [address] [address] [place], [place] [id number] 02/24/2025 11:10 AM EDT Office Visit [facility] [address] [facility] [address] [place] [phone] Emmie Pickens NP [address] [place] [address] [address] [place], [place] [phone] documented as of this encounter Visit Diagnoses Diagnosis Type 2 diabetes mellitus without complications (CMS/HCC V24, CMS/HCC V28) Atherosclerotic heart disease of [place] coronary artery without angina pectoris Benign prostatic hyperplasia without lower urinary tract symptoms Occlusion and stenosis of left vertebral artery documented in this encounter Care Teams Television Engineer Relationship Specialty Start Date End Date Jamilah Bueno PA [address] [place] [address] [address] [place] [address] PCP - General 08/23/24 documented as of this encounter
--- OUTSIDE RECORDS SUMMARY | 2024-10-29 14:46 | XMS_ITS | Encounter Summary ---
Author Name [facility] Address [address] [place] [place] [id number] Care Team Providers Care Counter Stacker Name Role Phone TOÑO CAI Primary Care [...] O MEDEX BRONZ E Mar 19, 2004 [id number] HOLLIE SHEPHERD PATIENT [place] SUPPLEMEN MASTER MEDEX BRONZ E Mar 19, 2004 [id number] [phone] HOLLIE SHEPHERD [place] SUPPLEMEN MASTER MEDEX BRONZ E Mar 19, 2004 [id number] [phone] HOLLIE SHEPHERD PATIENT BCBS [facility] MEDICARE SUPPLEMEN MASTER PSUED O MEDEX BRONZ E Mar 19, 2004 [id number] [phone] HOLLIE SHEPHERD PATIENT MEDICARE (WNR) MEDICARE (M) PART B Mar 19, 2004 PART B [id number] [phone] CORAHOLLIE SILVA PATIENT MEDICARE (WNR) MEDICARE (M) PART B Mar 19, 2004 PART B [id number] [phone] CORAHOLLIE SILVA ALD PATIENT MEDICARE (WNR) MEDICARE (M) PART B Mar 19, 2004 PART B [id number] [phone] CORAHOLLIE SILVA ALD PATIENT MEDICARE (WNR) MEDICARE (M) PART A Feb 17, 2003 PART A [id number] CORAHOLLIE SILVA ALD PATIENT MEDICARE (WNR) MEDICARE (M) PART B Feb 17, 2003 PART B [id number] [phone] HOLLIE SHEPHERD PATIENT MEDICARE (WNR) MEDICARE (M) PART A Feb 17, 2003 PART A [id number] [phone] HOLLIE SHEPHERD PATIENT MEDICARE (WNR) MEDICARE (M) PART A Feb 17, 2003 PART A [id number] HOLLIE SHEPHERD PATIENT MEDICARE (WNR) MEDICARE (M) PART A Feb 17, 2003 PART A [id number] CORAHOLLIE SILVA PATIENT MEDICARE (WNR) MEDICARE (M) PART A Feb 17, 2003 PART A [id number] [phone] HOLILE SHEPHERD PATIENT MEDICARE (WNR) MEDICARE (M) PART B Feb 17, 2003 PART B [id number] HOLLIE SHEPHERD PATIENT Selected Encounter This section includes the information on record at [place] for the Encounter. Date/Time Encounter Type Encounter Description Reason Provider Source Oct 02, 2024 10:54 AM OFF/OP EST OCTOBER X REQ PHY/QHP PRIMARY CARE/MEDICINE ICD-10-CM M54.50 Low back pain, unspecified UNIQUE MUIR Mikey Encounter Template Text not used by [place] Assessments - Encounter Diagnoses This section includes the primary and secondary diagnoses documented for the Encounter. Date/Time Primary/Secondary Diagnosis Diagnosis Name Provider Source Oct 02, 2024 11:04 AM PRIMARY Low back pain, unspecified UNIQUE MUIR [facility] Plan of Treatment: Future Appointments (+ 6 months) and Future Tests (+/- 45 days) The Plan of Treatment section includes future care activities for the patient from all [facility]. This section includes future appointments and future orders which are active, pending or scheduled. Future Appointments This section includes appointments that were scheduled to occur 6 months from the date of the Encounter, up to a maximum of 20 appointments. The data comes from all [facility]. Appointment Date/Time Appointment Type Appointme nt Facility Name Oct 03, 2024 02:00 PM AMBULATORY - MEDICINE [place] [facility] [place] [facility] Oct 08, 2024 11:00 AM AMBULATORY - NONE [facility] [place] [facility] October 28, 2024 01:30 PM AMBULATORY - MEDICINE [place] [facility] [facility] November 15, 2024 11:00 AM AMBULATORY - MEDICINE [place] [facility] [facility] Nov 27, 2024 11:00 AM AMBULATORY - MEDICINE [place] [facility] [facility] Feb 25, 2025 10:00 AM AMBULATORY - PSYCHIATRY [place] [facility] [place] [facility] Apr 02, 2025 10:30 AM AMBULATORY - MEDICINE [place] [facility] [place] [facility] Active, Pending, and Scheduled Orders [...] comes from all [facility]. Test Date/Time Test Type Test Details Facility Name Aug 22, 2024 12:00 AM Laboratory - Chemistry Order CALCIUM BLOOD (SST-SERUM) [facility] Aug 22, 2024 12:00 AM Laboratory - Chemistry Order C-PEPTIDE (q) BLOOD (SST-SERUM) [facility] November 13, 2024 12:00 AM Laboratory - Chemistry Order LIVER FUNCTION BLOOD (SST-SERUM) [facility] November 13, 2024 12:00 AM Laboratory - Chemistry Order HEMOGLOBIN A1C PANEL BLOOD (LAV-BLOOD) [facility] November 13, 2024 12:00 AM Laboratory - Chemistry Order BASIC METABOLIC PANEL (fasting) BLOOD (SST-SERUM) [facility] [facility] November 13, 2024 12:00 AM Laboratory - Chemistry Order LIPID PANEL FASTING BLOOD (SST-SERUM) [facility] [facility] November 13, 2024 12:00 AM Laboratory - Chemistry Order CBC BLOOD (LAV-BLOOD) [facility] Vital Signs: All taken on the encounter date This section contains inpatient and outpatient Vital Signs collected on the date of the Encounter. Date/Time Temperature Pulse Blood Pressure Respiratory Rate SP02 Pain Height Weight Body Mass Index Source Oct 02, 2024 11:03 AM 98 97 107/67 18 97 6 [place] [facility] [place] [facility] Social History: Smoking Status (Most current) [...] took place. Date/Time Current Smoking Status Comment [facility] Jun 17, 2024 10:31 AM VA-TOBACCO USE FOR TAMMY CIGARETTES [facility] Tobacco Use History This section includes a history of the smoking, or tobacco-related health factors, that were collected on or before the date of the Encounter. The data comes from the [place] facility where the Encounter took place. Date/Time Smoking Status/Tobac co Use Comment Facility Jun 17, 2024 10:31 AM VA-TOBACCO USE FORMER CIGARETTES [place] [facility] [place] [facility] Jun 05, 2023 11:00 AM VA-TOBACCO FORMER USER [place] [facility] [place] [facility] Jun 05, 2023 11:00 AM VA-TOBACCO QUIT 15 YRS OR MORE [place] [facility] [place] [facility] Jun 06, 2022 01:00 PM VA-TOBACCO FORMER USER [place] [facility] [place] [facility] Jun 06, 2022 01:00 PM VA-TOBACCO QUIT 15 YRS OR MORE [place] [facility] [place] [facility] Jun 30, 2021 02:37 PM VA-TOBACCO FORMER USER [place] [facility] [place] [facility] Jun 30, 2021 02:37 PM VA-TOBACCO QUIT 5 TO < 15 YRS [facility] [place] [facility] May 22, 2020 03:30 PM VA-TOBACCO NEVER USED [place] [facility] [place] [facility] May 08, 2018 02:03 PM VA-TOBACCO FORMER USER [facility] [place] [facility] May 08, 2018 02:03 PM VA-TOBACCO QUIT 15 YRS OR MORE [facility] [place] [facility] November 10, 2017 02:33 PM QUIT TOBACCO USE > 7 YEARS AGO [facility] [place] [facility] October 21, 2016 01:55 PM QUIT TOBACCO USE > 7 YEARS AGO [facility] [place] [facility] Sep 18, 2015 11:24 AM QUIT TOBACCO USE > 7 YEARS AGO stopped 50 years ago [facility] [place] [facility] May 19, 2005 08:01 AM HISTORY OF SMOKING [facility] [place] [facility] May 31, 2004 01:02 PM HISTORY OF SMOKING [place] [facility] [place] [facility] Jun 04, 2003 07:57 AM HISTORY OF SMOKING [place] [facility] [place] [facility] Jun 03, 2002 01:11 PM HISTORY OF SMOKING [facility] Jun 03, 2002 01:11 PM QUIT TOBACCO USE > 7 YEARS AGO [facility] Advance Directives: All historical and [...] Jun 02, 2023 ADVANCE DIRECTIVE JENNIFER QUIROS [place] [facility] Radiology Reports: +/- 30 days of [...] treatment facilities. Date/Time Radiology Report Provider Source Oct 08, 2024 10:13 AM BONE DENSITY AXIAL HIPS,PELVIS.SPINE: BEBO SHEPHERD [id number] -[phone] M Exm Date: OCT 08, 2024@10:13 Req Phys: ALLIE CUELLO Loc: [facility] END[facility]CR[facility] MD 1 (Req'g Loc) Img Loc: [facility]BUILD[facility] 1 Service: Unknown [place] [facility] [place] [address] (Case [id number] COMPLETE) BONE DENSITY AXIAL HIPS,PELVIS.SP(RAD Detailed) CPT:48960 Reason for Study: bone density below normral range Clinical History: Report Status: Verified Date Reported: OCT 08, 2024 Date Verified: OCT 08, 2024 Steel Turner E-Sig:/ES/NAPOLEON ELLIOTT JR Report: Study: DEXA scan. Comparison: DEXA scan from June 29, 2022. Findings: Images obtained on a [employer]v DEXA Machine. The lumbar spine is not measured secondary to multilevel instrumented spinal fusion. Measurement of bone mineral content gives a T score of 0.0 within the distal third of the left forearm, previously measuring 0.0, a change of 0%. Measurement of bone mineral content gives a T score of -2.4 in the hip, which previously measured -2.6, a change of 5.7% from prior. The T score measurements are compatible with normal bone mineral content in the left forearm and osteopenic bone mineral content in the left hip. The patient is at increased risk of fracture. Optimization of calcium and vitamin D supplementation is recommended unless clinically contraindicated. If the patient has a family history of osteoporosis or other significant risk factors are present, anti-resorptive therapy is indicated. Repeat testing in 2-3 years may be considered to monitor the progress of therapy. The FRAX WHO Fracture Risk Assessment Tool is not calculated because the patient has been treated for osteoporosis. Impression: Osteopenia of the left hip, as described above. Please note: 1. The T-score compares the BMD of an individual with the young normal mean and expresses the difference as a standard deviation score. 2. The Z-score compares the BMD of an individual with age-matched, gender-matched, and ethnic-matched controls and expresses the difference as a standard deviation score. 3. The World Health Organization classified postmenopausal women as osteoporotic when T-scores are -2.5 or below, osteopenic when T-scores are between -1.0 and -2.5 and normal when T-scores are -1.0 or above. 4. In untreated postmenopausal women and elderly men there is a strong association between low BMD and the risk of osteoporotic fractures. 5. The National Osteoporosis Foundation recommends pharmacologic therapy for osteoporosis in postmenopausal women with T-scores of -2.0 or below, in the absence of other risk factors, and with T-scores of -1.5 or below if other risk factors are present (History of fragility fracture, family history of osteoporosis, weight less than 127 lbs., or smoking). 6. The [employer] [employer] recommends pharmacologic therapy for osteoporosis for chronic glucocorticoid users with T-scores of -2.0 or below. Note 1: The presence of vertebral abnormalities such as scoliosis or osteophytes, or aortic/ligamentous calcifications can alter readings of the lumbar spine. In such cases, readings of the hips are more reliable. Note 2: According to the International Society for Clinical Densitometry's 2013 consensus conference, in women prior to menopause and men less than age 50: Z-scores, not T-scores are preferred. A Z-score of -2.0 or lower is defined as 'below the expected range for age' and a Z-score above -2.0 is 'within the expected range for age'. The WHO diagnostic criteria may be applied in women in the menopausal transition. Osteoporosis cannot be diagnosed in men under age 50 on the basis of BMD alone. Note 3: Approaches to reduce osteoporosis related fracture risk include optimizing calcium and vitamin D status and fall prevention measures. The National Osteoporosis Foundation recommendations can be found in http://www.nof.org/hcp/pra ctice/pzqiuxli-cyh-cctuwmo l-guidelines/ clinicians-guide. All treatment decisions require clinical judgment and consideration of individual factors including patient preferences, comorbidities, prior drug use, risk factors not captured in the FRAX model (e.g. sarcopenia, falls, vitamin D deficiency, increased bone turnover, interval significant decline in bone density) and possible under- or overestimation of fracture risk by FRAX. Useful resources regarding osteoporosis and treatment guidelines: National Osteoporosis Foundation https://www.nof.org/patien ts/diagnosis-information/b gsg-xidqqjs-y amtesting/ International Osteoporosis Foundation https://www.iofbonehealth. org/ International Society for Clinical Densitometry https://www.iscd.org/jose angel nt-information/ FRAX(R) Fracture Risk Assessment Tool https://www.tobias.ac.u k/FRAX/ Primary Diagnostic Code: No immediate attention required Primary Interpreting Staff: NAPOLEON ELLIOTT JR, Radiologist (Steel Turner) /NAPOLEON SCHMITZ JR [facility] Encounter Notes: All associated encounter notes This section contains the clinical notes associated to the Encounter. Date/Time Encounter Note(s) Provider Source Oct 02, 2024 10:54 AM PRIMARY CARE OUTPA TIENT NOTE: LOCAL TITLE: AMBULATORY/OUTPATIENT CARE NOTE STANDARD TITLE: PRIMARY CARE OUTPATIENT NOTE DATE OF NOTE: OCT 02, 2024@10:54 ENTRY DATE: OCT 02, 2024@10:54:48 AUTHOR: UNIQUE MUIR EXP COSIGNER: URGENCY: STATUS: COMPLETED [id number] came to clinic for 2 weeks of sciatica pain. He states it hurts from left sided lower back all the way shooting down to calf. He states it is sharp and dull both and hurts more when trying to sleep, and walk. Better when sitting. He has taken up to 1300 mg of tylenol daily, without much luck. /thomas/ Unique Muir RN, BSN Primary Care Signed: 10/02/2024 11:04 UNIQUE MUIR [facility]
--- OUTSIDE RECORDS SUMMARY | 2024-10-29 14:46 | XMS_ITS | Continuity of Care Document ---
Author Name [facility] Organization [facility] Care Team Providers Care Fourth Hand Name Role Phone [facility] Unavailable Unavailable Problems Combined list of problems from Department of Defense and Veterans Affairs facilities. It does not include entries that were removed or entered in error. Problem Status Onset Date Problem Type Date of Resolution Comments Source Acute mesenteric ischaemia Active Condition [facility] Adjust[facility] disorder Active Condition [facility] Aortic Valve Disorder (SCT 9759992) Active Condition Oct 09, 2023 Entered By: LUCAS CAI AM Comment: TAVR 10/03/2023 [facility]. [facility] Cerebrovascular disease Active Condition Apr 26, 2023 Entered By: ALLIE CUELLO Comment: s/p L carotid endarterectomy [facility] Chronic recurrent major depressive disorder Active Condition [facility] Diabetes mellitus type 2 (SNOMED CT 45926382) Active Condition [facility] Hyperlipidemia (SNOMED CT 64035457) Active Condition [facility] Hypertension Active Condition [facility] Hypertension (SNOMED CT 87544928) Active Condition [facility] Insulin pump present Active Condition [facility] Lower Back Pain * (ICD-9-CM 724.2) Active Condition [facility] Major depressive disorder Active Condition [facility] Microscopic Hematuria Active Condition Aug 04, [...] [facility] Diagnosis: ICD-10-CM M54.42 Lumbago with sciatica, left side Active Diagnosis [facility] Diagnosis: ICD-10-CM M54.50 Low back pain, unspecified Active Diagnosis [facility] [...] [facility] Diagnosis: ICD-10-CM R10.0 Acute abdomen Active Diagnosis [facility] Diagnosis: ICD-10-CM M81.0 Age-related osteoporosis w/o [...] 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 Medication Details Route Status Patient Instructions Prescription Expires Prescription Number Last Dispense Date Ordering Provider Order Date Order Qty Source ACETAMINOPH EN TAB TAKE BY MOUTH ONCE DAILY NEEDED ORAL ACTIVE TOÑO CAI 2012 [facility] AMLODIPINE BESYLATE 2.5MG TAB TAKE ONE TABLET BY MOUTH ONCE DAILY FOR BLOOD PRESSURE /HEART, DO NOT TAKE WITH GRAPEFRU IT JUICE ORAL ACTIVE 08/10/2025 [id number] TOÑO CAI 2024 90 [facility] ASPIRIN 81MG TAB,EC TAKE ONE TABLET BY MOUTH ONCE DAILY ORAL ACTIVE [facility] ATORVASTATI N CA 80MG TAB TAKE ONE-HALF TABLET BY MOUTH ONCE DAILY ORAL ACTIVE 02/27/2025 [id number] 5 CUELLO,AL ICE 2023 45 [facility] ATORVASTATI N CA 80MG TAB TAKE ONE-HALF TABLET BY MOUTH ONCE DAILY ORAL DISCONT INUED 04/26/2024 [id number] 4 CUELLO,AL ICE 2022 45 [facility] CALCIUM 200MG (CA CITRATE-950 MG) TAB TAKE FOUR TABLETS BY MOUTH TWICE DAILY ORAL ACTIVE 11/27/2024 [id number] 5 CUELLO,GA ICE 2023 800 [facility] CALCIUM 200MG (CA CITRATE-950 MG) TAB TAKE FOUR TABLETS BY MOUTH TWICE DAILY ORAL DISCONT INUED 04/26/2024 [id number] 4 CUELLO,GA ICE 2022 720 [facility] CHOLECALCIF DERECK 50MCG (2,000UNIT) TAB TAKE ONE TABLET BY MOUTH ONCE DAILY ORAL ACTIVE TAN [address] 2020 [facility] CITALOPRAM HYDROBROMID E 10MG TAB TAKE ONE-HALF TABLET BY MOUTH ONCE DAILY FOR DEPRESSI ON AND ANXIETY ORAL DISCONT INUED BY SALOME R 02/28/2025 [id number] 4 KALLIE HARPER 2023 45 [facility] CITALOPRAM HYDROBROMID E 20MG TAB TAKE ONE-HALF TABLET BY MOUTH ONCE DAILY FOR MOOD ORAL DISCONT INUED (EDIT) 10/10/2024 [id number] 4 KALLIE HARPER 2023 45 [facility] CYCLOBENZAP RINE HCL 10MG TAB TAKE ONE TABLET BY MOUTH TWICE DAILY NEEDED FOR MUSCLE SPASM ORAL ACTIVE 08/10/2025 [id number] 5 TOÑO CAI 2024 180 [facility] DENOSUMAB 60MG/ML INJ,SYRINGE ,1ML INJECT 60MG/1ML SUBCUTAN EOUSLY ONE TIME FOR OSTEOPOR OSIS SUBCUT ANEOUS 05/30/2024 [id number] 4 CUELLO,AL ICE 2023 1 [facility] DENOSUMAB 60MG/ML INJ,SYRINGE ,1ML INJECT 60MG/1ML SUBCUTAN EOUSLY ONE TIME FOR OSTEOPOR OSIS SUBCUT ANEOUS 11/17/2023 [id number] 4 CUELLO,AL ICE 2023 1 [facility] FUROSEMIDE 20MG TAB TAKE ONE TABLET BY MOUTH ONCE DAILY ORAL ACTIVE TOÑO CAI 2023 [facility] GABAPENTIN 600MG TAB TAKE ONE TABLET BY MOUTH THREE TIMES A DAY ORAL ACTIVE 11/14/2024 [id number] 5 TOÑO CAI 2024 270 [facility] GABAPENTIN 600MG TAB TAKE ONE TABLET BY MOUTH THREE TIMES A DAY ORAL DISCONT INUED 09/30/2024 [id number] 5 GAGANDEEP COOPER 2024 270 [facility] GLUCOSE 4GM TAB,CHEW CHEW ONE TABLET BY MOUTH EVERY DAY NEEDED FOR LOW BLOOD SUGAR ORAL ACTIVE 04/03/2025 [id number] 4 TOÑO CAI 2023 20 [facility] HYDROCODONE 5MG/ACETAMI NOPHEN 325MG TAB TAKE 1 TABLET BY MOUTH EVERY 6 HOURS NEEDED ORAL ACTIVE 11/01/2024 [id number] 5 KARLA ERNST 2024 12 [facility] HYDROXYCHLO ROQUINE SO4 200MG TAB TAKE ONE TABLET BY MOUTH ONCE DAILY MONDAY- AND THEN TAKE 1 TABLET TWICE DAILY ON MONDAY AND MONDAY. DO NOT TAKE WITH CITALOPR AM ORAL ACTIVE 08/01/2025 [id number] 5 DAYSI HA JUDITH 2024 108 [facility] HYDROXYCHLO ROQUINE SO4 200MG TAB TAKE TWO TABLETS BY MOUTH ONCE DAILY 5 DAYS A WEEK, AND 1 TABLET DAILY 2 DAYS A WEEK. ORAL DISCONT INUED 08/19/2024 [id number] 4 GAGANDEEP COOPER M 2023 144 [facility] HYDROXYCHLO ROQUINE SO4 200MG TAB TAKE ONE TABLET BY MOUTH ONCE DAILY ORAL DISCONT INUED 10/10/2024 [id number] 4 GAGANDEEP COOPER M 2023 90 [facility] INSULIN,ASP ART,HUMAN 100 UNT/ML INJ INJECT 80 UNITS SUBCUTAN EOUSLY EVERY DAY FOR USE WITH CONTINUO US INSULIN INFUSION DEVICE SUBCUT ANEOUS ACTIVE 09/10/2025 [id number] 5 CUELLO,AL ICE 2024 8 [facility] INSULIN,ASP ART,HUMAN 100 UNT/ML INJ INJECT 80 UNITS SUBCUTAN EOUSLY EVERY DAY DIRECTED FOR USE WITH CONTINUO US SUBCUTAN EOUS INSULIN INFUSION DEVICE SUBCUT ANEOUS 09/01/2024 [id number] 4 TOÑO CAI 2023 8 [facility] INSULIN,ASP ART,HUMAN 100 UNT/ML INJ INJECT 80 UNITS SUBCUTAN EOUSLY EVERY DAY DIRECTED FOR USE WITH CONTINUO US SUBCUTAN EOUS INSULIN INFUSION DEVICE SUBCUT ANEOUS 04/17/2024 [id number] 4 TOÑO CAI 2022 8 [facility] INSULIN,GLA RGINE,HUMAN 100 UNT/ML INJ INJECT 18 UNITS SUBCUTAN EOUSLY ONCE DAILY NEEDED PUMP FAILURE SUBCUT ANEOUS ACTIVE 09/21/2024 [id number] 5 CUELLO,AL ICE 2024 1 [facility] INSULIN,GLA RGINE-YFGN 100UNIT/ML INJ INJECT 18 UNITS SUBCUTAN EOUSLY ONCE DAILY NEEDED PUMP FAILURE SUBCUT ANEOUS DISCONT INUED (EDIT) 09/21/2024 [id number] 5 SHARON CUELLO ICE 2024 1 [facility] KETOCONAZOL E 2% SHAMPOO SHAMPOO SMALL AMOUNT TOPICALL Y TWICE A WEEK NEEDED APPLY FOR 8 WEEKS, THEN NEEDED TOPICA L 07/13/2024 [id number] 4 VEGA PENA 2023 240 [facility] LEFLUNOMIDE 10MG TAB TAKE ONE TABLET BY MOUTH ONCE DAILY FOR 14 DAYS, THEN TAKE TWO TABLETS ONCE DAILY ORAL DISCONT INUED 03/26/2025 [id number] 4 GAGANDEEP COOPER M 2023 60 [facility] LEFLUNOMIDE 20MG TAB TAKE ONE TABLET BY MOUTH ONCE DAILY ORAL ACTIVE 08/01/2025 [id number] 5 DAYSI HA [facility] 2024 90 [facility] LEFLUNOMIDE 20MG TAB TAKE ONE TABLET BY MOUTH ONCE DAILY ORAL 07/29/2024 [id number] 4 GAGANDEEP COOPER 2023 90 [facility] [place] POTASSIUM 100MG TAB TAKE ONE TABLET BY MOUTH ONCE DAILY FOR BLOOD PRESSURE /HEART ORAL ACTIVE 08/10/2025 [id number] 5 TOÑO CAI 2024 90 [facility] METOPROLOL SUCCINATE 25MG TAB,SA TAKE ONE-HALF TABLET BY MOUTH ONCE DAILY FOR BLOOD PRESSURE /HEART ORAL ACTIVE 10/20/2025 [id number] 5 TOÑO CAI 2024 45 [facility] MULTIVIT/OP HTH AREDS2/LUTE IN/ZEAXANTH IN CAP/TAB TAKE 1 CAPSULE BY MOUTH TWICE DAILY IN THE MORNING AND EVENING, WITH FOOD ORAL ACTIVE 04/30/2025 [id number] 5 TOÑO CAI 2023 120 [facility] MULTIVIT/OP HTH AREDS2/LUTE IN/ZEAXANTH IN CAP/TAB TAKE 1 CAPSULE BY MOUTH TWICE DAILY IN THE MORNING AND EVENING, WITH FOOD ORAL DISCONT INUED 03/29/2024 [id number] 4 Garcia VALLADARES E 2022 120 [facility] OMEPRAZOLE 20MG CAP,EC TAKE 1 CAPSULE BY MOUTH EVERY DAY ORAL ACTIVE ROLAND ACOSTA WALESKA O 2008 [facility] OXYCODONE HCL 5MG TAB TAKE ONE TABLET BY MOUTH EVERY 6 HOURS NEEDED FOR SEVERE PAIN ORAL 03/19/2024 [id number] 4 Ankit STODDARD 2023 16 [facility] OXYCODONE HCL 5MG/ACETAMI NOPHEN 325MG TAB TAKE 1 TABLET BY MOUTH EVERY 6 HOURS NEEDED FOR PAIN ORAL 01/31/2024 [id number] 4 ISABELLE ARREDONDO 2023 5 [facility] PILOCARPINE HCL 5MG TAB TAKE ONE TABLET BY MOUTH TWICE DAILY ORAL ACTIVE 08/14/2025 [id number] 5 DAYSI HA 2024 180 [facility] PREDNISONE 10MG TAB TAKE ONE TABLET BY MOUTH ONCE DAILY ORAL DISCONT INUED 07/09/2024 [id number] 4 TALTAM[place],MO HAMED M 2023 90 [facility] PREDNISONE 10MG TAB TAKE ONE TABLET BY MOUTH ONCE DAILY ORAL DISCONT INUED 01/07/2024 [id number] 4 TALAAT,MO HAMED M 2023 7 [facility] PREDNISONE 1MG TAB TAKE FOUR TABLETS BY MOUTH ONCE DAILY ORAL DISCONT INUED 02/26/2025 [id number] 4 GAGANDEEP COOPER 2023 120 [facility] PREDNISONE 1MG TAB TAKE FOUR TABLETS BY MOUTH ONCE DAILY ORAL DISCONT INUED 10/16/2024 [id number] GAGANDEEP COOPER 2023 120 [facility] PREDNISONE 1MG TAB TAKE ONE TABLET BY MOUTH ONCE DAILY ORAL DISCONT INUED 06/21/2024 [id number] 4 GAGANDEEP COOPER 2023 60 [facility] PREDNISONE 2.5MG TAB TAKE THREE TABLETS BY MOUTH ONCE DAILY ORAL ACTIVE 04/30/2025 [id number] GAGANDEEP COOPER 2023 90 [facility] PREDNISONE 20MG TAB TAKE ONE TABLET BY MOUTH ONCE DAILY ORAL ACTIVE 11/01/2024 [id number] 5 KARLA ERNST 2024 5 [facility] PREDNISONE 5MG TAB TAKE ONE TABLET BY MOUTH ONCE DAILY ORAL ACTIVE 08/01/2025 [id number] 5 DAYSI HA 2024 90 [facility] PSYLLIUM PWDR,ORAL TAKE 2 TEASPOON FULS BY MOUTH ONCE DAILY FOR CONSTIPA TION (MIX WITH AT LEAST 8OZ. OF WATER OR OTHER FLUID) ORAL ACTIVE 07/31/2025 [id number] 5 TOÑO CAI 2024 390 [facility] TAMSULOSIN HCL 0.4MG CAP TAKE TWO CAPSULES BY MOUTH AT BEDTIME ORAL ACTIVE 01/22/2025 [id number] 5 EM DEAN 2023 180 [facility] TAMSULOSIN HCL 0.4MG CAP TAKE ONE CAPSULE BY MOUTH AT BEDTIME FOR ENLARGED PROSTATE ORAL DISCONT INUED 10/10/2024 [id number] 4 TOÑO CAI 2023 90 [facility] TAMSULOSIN HCL 0.4MG CAP TAKE ONE CAPSULE BY MOUTH AT BEDTIME FOR ENLARGED PROSTATE ORAL DISCONT INUED (EDIT) 04/12/2024 [id number] 4 TOÑO CAI 2022 30 [facility] TESTOSTERON E CYPIONATE 200MG/ML INJ,1ML (IN OIL) INJECT 0.3ML (60MG) INTRAMUS CULARLY EVERY 7 DAYS FOR LOW TESTOSTE JAGDISH INTRAM USCULA R DISCONT INUED BY PROVIDE R 01/26/2024 [id number] 4 SHARON CUELLO ICE 2023 4 [facility] TOCILIZUMAB 162MG/0.9ML INJ,SYRINGE ,0.9ML INJECT 162MG SUBCUTAN EOUSLY EVERY 2 WEEKS SUBCUT ANEOUS DISCONT INUED BY PROVIDE R 04/12/2025 [id number] 5 GAGANDEEP COOPER HAMED M 2023 2 [facility] TOCILIZUMAB 162MG/0.9ML INJ,SYRINGE ,0.9ML INJECT 162MG SUBCUTAN EOUSLY EVERY 2 WEEKS SUBCUT ANEOUS DISCONT INUED 11/17/2024 [id number] 4 SARIAH ROSS WEST 2023 2 [facility] TOCILIZUMAB 162MG/0.9ML INJ,SYRINGE ,0.9ML INJECT 162MG SUBCUTAN EOUSLY EVERY 2 WEEKS SUBCUT ANEOUS DISCONT INUED 08/28/2024 [id number] 4 TALAAT,MO HAMED M 2023 2 [facility] TOCILIZUMAB 162MG/0.9ML INJ,SYRINGE ,0.9ML INJECT 162MG SUBCUTAN EOUSLY EVERY 2 WEEKS SUBCUT ANEOUS DISCONT INUED 06/07/2024 [id number] 4 TALAAT,MO HAMED M 2022 2 [facility] Allergies, Adverse Reactions, Alerts Combined list of allergies from Department of Defense and Veterans Affairs facilities. It does not include entries that were removed or entered in error. Substance Category Reaction Severity Reaction type Status Date Reported Comments Source METFORMIN Propensity to adverse reactions to drug (finding) [facility] P[facility]IC[facility] Propensity [facility] adverse reactions to drug (finding) HIVES [facility] Propensity to adverse reactions to drug (finding) active 9 [facility] Immunizations Combined list of available immunizations from the Department of [facility] and Veterans Affairs facilities. Immunization Series Date Given Administered By Site Reaction Lot Number CVX Code Drug Weave Defect Charting Clerk Status Comments Source TDAP 2024 VALERIY SIMPSON E LEFT DELTO ID [id number] 115 complet ed Booster for Series, [facility] INFLUENZA, UNSPECIFIED FORMULATION 2023 88 complet ed Booster for Series, HISTORICA L INFORMATI ON - FROM OTHER PROVIDER, [facility] COVID-19 (MODERNA), MRNA, LNP-S, PF, 50 MCG/0.5 ML (AGES 12+ YEARS) 2023 312 complet ed Booster for Series, HISTORICA L INFORMATI ON - FROM OTHER PROVIDER, [facility] COVID-19 (MODERNA), MRNA, LNP-S, PF, 50 MCG/0.5 ML (AGES 12+ YEARS) 1 2022 ZA THAO E RIGHT DELTO ID [id number] 312 complet ed [facility] INFLUENZA, HIGH-DOSE, QUADRIVALENT 2022 ZA THAO HY E LEFT DELTO ID [id number] 197 complet ed [facility] COVID-19 (MODERNA), MRNA, LNP-S, BIVALENT BOOSTER, PF, 50 MCG/0.5 ML OR 25MCG/0.25 ML DOSE 4 2021 229 complet ed HISTORICA L INFORMATI ON - [facility] INFLUENZA, UNSPECIFIED FORMULATION 2021 88 complet ed Completed Series, HISTORICA L INFORMATI ON - [facility] TD (ADULT), 5 LF TETANUS TOXOID, PRESERVATIVE FREE, ADSORBED 2021 113 complet ed [facility] ZOSTER RECOMBINANT 2 2021 187 complet ed [facility] COVID-19 (MODERNA), MRNA, LNP-S, PF, 100 MCG/0.5ML DOSE OR 50 MCG/0.25ML DOSE 3 2021 207 complet ed [facility] COVID-19 (MODERNA), MRNA, LNP-S, PF, 100 MCG/0.5ML DOSE OR 50 MCG/0.25ML DOSE 2020 207 complet ed Booster for Series, HISTORICA L INFORMATI ON - [facility] COVID-19 (MODERNA), MRNA, LNP-S, PF, 100 MCG/0.5ML DOSE OR 50 MCG/0.25ML DOSE 2020 207 complet ed Booster for Series, HISTORICA L INFORMATI ON - [facility] OTHER PROVID[facility] INFLUENZA, UNSPECIFIED FORMULATION 2020 88 complet ed [facility] COVID-19 (MODERNA), MRNA, LNP-S, PF, 100 MCG/0.5 ML DOSE 2 2020 207 complet ed MOD; [id number]; 1 [facility] COVID-19 (MODERNA), MRNA, LNP-S, PF, 100 MCG/0.5 ML DOSE 1 2020 207 complet ed MOD; [id number]; 1 [facility] ZOSTER RECOMBINANT 1 2019 187 complet ed [facility] INFLUENZA, SEASONAL, INJECTABLE 2018 141 [...] Jul 24, 2024 11:22 AM Reporting Lab: [facility] [place] [facility] [address] [facility] [address] Performing Lab: [facility] [place] [facility] [address] [facility] [facility] [address] [facility] [place] IRON & TIBC PANEL IRON BINDING CAPACITY [MASS/VOLUM E] IN SERUM OR PLASMA 350 ug/dL 204 - 475 08/07 Specimen Type: SERUM No comment entered. Ordering Provider: Jameson CAI Report Released Date/Time: Jul 24, 2024 11:22 AM Reporting Lab: [facility] [place] [place] [facility] [address] [facility] [address] Performing Lab: [facility] [place] [facility] [address] [facility] [address] [facility] [facility] IRON & TIBC PANEL IRON [MASS/VOLUM E] IN SERUM OR PLASMA 53 ug/dL 40 - 160 08/07 Specimen Type: SERUM No comment entered. Ordering Provider: Jameson CAI Report Released Date/Time: Jul 24, 2024 11:22 AM Reporting Lab: [facility] [place] [facility] [address] [facility] [address] Performing Lab: [facility] [place] [facility] [address] [facility] [facility] [address] [facility] [place] [facility] IRON & TIBC PANEL IRON/IRON BINDING CAPACITY.TO MASTER [MASS RATIO] IN SERUM OR PLASMA 15.2 20.0 - 50.0 08/07 L Specimen Type: SERUM No comment entered. Ordering Provider: Jameson CAI Report Released Date/Time: Jul 24, 2024 11:22 AM Reporting Lab: [facility] [place] [facility] [address] [facility] [address] Performing Lab: [facility] [place] [facility] [address] [facility] [address] [facility] [place] [facility] IRON & TIBC PANEL TRANSFERRIN [MASS/VOLUM E] IN SERUM OR PLASMA 265 mg/dL 200 - 360 08/07 Specimen Type: SERUM No comment entered. Ordering Provider: Jameson CAI Report Released Date/Time: Jul 24, 2024 11:22 AM Reporting Lab: [facility] [place] [facility] [address] [facility] [address] Performing Lab: [facility] [place] [facility] [address] [facility] [address] [facility] [place] [facility] LIVER FUNCTION PROTEIN [MASS/VOLUM E] IN SERUM OR PLASMA 5.5 g/dL 6.0 - 8.3 08/07 L Specimen Type: SERUM No comment entered. Ordering Provider: Jameson CAI Report Released Date/Time: Jul 24, 2024 11:22 AM Reporting Lab: [facility] [place] [facility] [address] [facility] [address] Performing Lab: [facility] [place] [facility] [address] [facility] [address] [facility] [place] [facility] LIVER FUNCTION ALBUMIN [MASS/VOLUM E] IN SERUM OR PLASMA 3.5 g/dL 3.5 - 5.0 08/07 Specimen Type: SERUM No comment entered. Ordering Provider: Jameson CAI Report Released Date/Time: Jul 24, 2024 11:22 AM Reporting Lab: [facility] [place] [facility] [address] [facility] [address] Performing Lab: [facility] [place] [facility] [address] [facility] [facility] [address] [facility] [place] [facility] LIVER FUNCTION ALKALINE PHOSPHATASE [ENZYMATIC ACTIVITY/VO LUME] IN SERUM OR PLASMA 82 U/L 40 - 150 08/07 Specimen Type: SERUM No comment entered. Ordering Provider: Jameson CAI Report Released Date/Time: Jul 24, 2024 11:22 AM Reporting Lab: [facility] [place] [facility] [address] [facility] [address] Performing Lab: [facility] [place] [facility] [address] [facility] [address] [facility] [place] [facility] LIVER FUNCTION ASPARTATE AMINOTRANSF ERASE [ENZYMATIC ACTIVITY/VO LUME] IN SERUM OR PLASMA 25 U/L 5 - 34 08/07 Specimen Type: SERUM No comment entered. Ordering Provider: Jameson CAI Report Released Date/Time: Jul 24, 2024 11:22 AM Reporting Lab: [facility] [place] [address] [address] Performing Lab[facility] [place] [address] [address] [place] [facility] LIVER FUNCTION ALANINE AMINOTRANSF ERASE [ENZYMATIC ACTIVITY/VO LUME] IN SERUM OR PLASMA 27 U/L 08/07 Specimen Type: SERUM No comment entered. Ordering Provider: Jameson CAI Report Released Date/Time: Jul 24, 2024 11:22 AM Reporting Lab: [facility] [place] [address] [address] Performing Lab: [facility] [place] [address] [address] [facility] [place] [facility] LIVER FUNCTION BILIRUBIN.T OTAL [MASS/VOLUM E] IN SERUM OR PLASMA 0.7 mg/dL 0.2 - 1.2 08/07 Specimen Type: SERUM No comment entered. Ordering Provider: Jameson CAI Report Released Date/Time: Jul 24, 2024 11:22 AM Reporting Lab: [facility] [place] [address] [address] Performing Lab: [facility] [place] [facility] [address] [facility] [address] [facility] [place] [facility] BASIC METABOLIC PANEL (fasting) UREA NITROGEN [MASS/VOLUM E] IN SERUM OR PLASMA 18 mg/dL 7 - 25 08/07 Specimen Type: SERUM No comment entered. Ordering Provider: Jameson CAI Report Released Date/Time: Jul 24, 2024 11:22 AM Reporting Lab: [facility] [place] [facility] [address] [facility] [address] Performing Lab: [place] [facility] [place] [facility] [address] [facility] [address] [facility] [place] [facility] BASIC METABOLIC PANEL (fasting) GLUCOSE [MASS/VOLUM E] IN SERUM OR PLASMA 150 mg/dL 65 - 100 08/07 H Specimen Type: SERUM No comment entered. Ordering Provider: Jameson CAI Report Released Date/Time: Jul 24, 2024 11:22 AM Reporting Lab: [facility] [place] [address] [address] Performing Lab: [place] [facility] [place] [address] [address] [facility] [place] [facility] BASIC METABOLIC PANEL (fasting) SODIUM [MOLES/VOLU ME] IN SERUM OR PLASMA 143 mmol/L 135 - 145 08/07 Specimen Type: SERUM No comment entered. Ordering Provider: Jameson CAI Report Released Date/Time: Jul 24, 2024 11:22 AM Reporting Lab: [facility] [place] [address] [address] Performing Lab: [facility] [place] [address] [address] [place] [facility] [place] [facility] BASIC METABOLIC PANEL (fasting) POTASSIUM [MOLES/VOLU ME] IN SERUM OR PLASMA 3.4 mmol/L 3.5 - 5.0 08/07 L Specimen Type: SERUM No comment entered. Ordering Provider: Jameson CAI Report Released Date/Time: Jul 24, 2024 11:22 AM Reporting Lab: [facility] [place] [facility] [address] [facility] [address] Performing Lab: [place] [facility] [place] [facility] [address] [facility] [address] [place] [facility] [facility] BASIC METABOLIC PANEL (fasting) CHLORIDE [MOLES/VOLU ME] IN SERUM OR PLASMA 106 mmol/L 100 - 110 08/07 Specimen Type: SERUM No comment entered. Ordering Provider: Jameson CAI Report Released Date/Time: Jul 24, 2024 11:22 AM Reporting Lab: [place] [facility] [place] [facility] [address] [facility] [address] Performing Lab: [place] [facility] [place] [facility] [address] [facility] [address] [facility] [place] [facility] BASIC METABOLIC PANEL (fasting) CARBON DIOXIDE, TOTAL [MOLES/VOLU ME] IN SERUM OR PLASMA 26 meq/L 20 - 30 08/07 Specimen Type: SERUM No comment entered. Ordering Provider: Jameson CAI Report Released Date/Time: Jul 24, 2024 11:22 AM Reporting Lab: [place] [facility] [place] [facility] [address] [facility] [address] Performing Lab: [place] [facility] [place] [facility] [address] [facility] [address] [facility] [place] [facility] BASIC METABOLIC PANEL (fasting) CALCIUM [MASS/VOLUM E] IN SERUM OR PLASMA 9.1 mg/dL 8.5 - 10.2 08/07 Specimen Type: SERUM No comment entered. Ordering Provider: Jameson CAI Report Released Date/Time: Jul 24, 2024 11:22 AM Reporting Lab: [facility] [place] [facility] [address] [facility] [address] Performing Lab: [place] [facility] [place] [facility] [address] [facility] [address] [place] [facility] [place] [facility] BASIC METABOLIC PANEL (fasting) CREATININE [MASS/VOLUM E] IN SERUM OR PLASMA 0.75 mg/dL 0.50 - 1.40 08/07 Specimen Type: SERUM No comment entered. Ordering Provider: Jameson CAI Report Released Date/Time: Jul 24, 2024 11:22 AM Reporting Lab: [facility] [place] [address] [address] Performing Lab: [facility] [address] [address] [place] [facility] [place] [facility] BASIC METABOLIC PANEL (fasting) GLOMERULAR FILTRATION RATE/1.73 SQ M.PREDICTED [VOLUME RATE/AREA] IN SERUM, PLASMA OR BLOOD BY CREATININE- BASED FORMULA (CKD-EPI 2020) 87 mL/min 60 08/07 Specimen Type: SERUM No comment entered. Ordering Provider: Jameson CAI Report Released Date/Time: Jul 24, 2024 11:22 AM Reporting Lab: [place] [facility] [place] [address] [address] Performing Lab: [place] [facility] [place] [address] [address] [facility] CBC AND DIFF (AUTO) LEUKOCYTES [#/VOLUME] IN BLOOD BY AUTOMATED COUNT 3.96 10*3/u L 4.50 - 11.00 08/07 L Specimen Type: BLOOD No comment entered. Ordering Provider: Jameson CAI Report Released Date/Time: Jul 24, 2024 11:22 AM Reporting Lab: [facility] [place] [address] [address] Performing Lab: [place] [facility] [place] [address] [address] [facility] [place] [facility] CBC AND DIFF (AUTO) ERYTHROCYTE S [#/VOLUME] IN BLOOD BY AUTOMATED COUNT 4.18 10*6/u L 4.23 - 5.66 08/07 L Specimen Type: BLOOD No comment entered. Ordering Provider: Jameson CAI Report Released Date/Time: Jul 24, 2024 11:22 AM Reporting Lab: [facility] [place] [facility] [address] [facility] [address] Performing Lab: [facility] [place] [facility] [address] [facility] [address] [facility] [place] [facility] CBC AND DIFF (AUTO) HEMOGLOBIN [MASS/VOLUM E] IN BLOOD 12.7 g/dL 12.8 - 17 08/07 L Specimen Type: BLOOD No comment entered. Ordering Provider: Jameson CAI Report Released Date/Time: Jul 24, 2024 11:22 AM Reporting Lab: [facility] [place] [facility] [address] [facility] [address] Performing Lab: [facility] [place] [facility] [address] [facility] [address] [facility] [place] [facility] CBC AND DIFF (AUTO) HEMATOCRIT [VOLUME FRACTION] OF BLOOD BY AUTOMATED COUNT 38.5 39.2 - 50.4 08/07 L Specimen Type: BLOOD No comment entered. Ordering Provider: Jameson CAI Report Released Date/Time: Jul 24, 2024 11:22 AM Reporting Lab: [facility] [place] [place] [facility] [address] [facility] [address] Performing Lab: [facility] [place] [facility] [address] [facility] [address] [facility] [place] [facility] CBC AND DIFF (AUTO) MCV [ENTITIC VOLUME] BY AUTOMATED COUNT 92.1 fL 82 - 99 08/07 Specimen Type: BLOOD No comment entered. Ordering Provider: Jameson CAI Report Released Date/Time: Jul 24, 2024 11:22 AM Reporting Lab: [facility] [place] [facility] [address] [facility] [address] Performing Lab: [facility] [place] [facility] [address] [facility] [address] [facility] [place] [facility] CBC AND DIFF (AUTO) MCHC [MASS/VOLUM E] BY AUTOMATED COUNT 33.0 g/dL 30.8 - 35.1 08/07 Specimen Type: BLOOD No comment entered. Ordering Provider: Jameson CAI Report Released Date/Time: Jul 24, 2024 11:22 AM Reporting Lab: [facility] [place] [facility] [address] [facility] [address] Performing Lab: [facility] [place] [facility] [address] [facility] [address] [facility] [place] [facility] CBC AND DIFF (AUTO) PLATELETS [#/VOLUME] IN BLOOD BY AUTOMATED COUNT 121 10*3/u L 140 - 360 08/07 L Specimen Type: BLOOD No comment entered. Ordering Provider: Jameson CAI Report Released Date/Time: Jul 24, 2024 11:22 AM Reporting Lab: [facility] [place] [facility] [address] [facility] [address] Performing Lab: [facility] [place] [facility] [address] [facility] [address] [facility] [place] [facility] CBC AND DIFF (AUTO) ERYTHROCYTE DISTRIBUTIO N WIDTH [RATIO] BY AUTOMATED COUNT 13.5 12.0 - 16.0 08/07 Specimen Type: BLOOD No comment entered. Ordering Provider: Jameson CAI Report Released Date/Time: Jul 24, 2024 11:22 AM Reporting Lab: [facility] [place] [facility] [address] [facility] [address] Performing Lab: [facility] [place] [facility] [address] [facility] [address] [facility] [place] [facility] CBC AND DIFF (AUTO) MONOCYTES [#/VOLUME] IN BLOOD BY AUTOMATED COUNT 0.71 10*3/u L 0.30 - 1.10 08/07 Specimen Type: BLOOD No comment entered. Ordering Provider: Jameson CAI Report Released Date/Time: Jul 24, 2024 11:22 AM Reporting Lab: [facility] [place] [facility] [address] [facility] [address] Performing Lab: [facility] [place] [facility] [address] [facility] [address] [facility] [place] [facility] CBC AND DIFF (AUTO) MCH [ENTITIC MASS] BY AUTOMATED COUNT 30.4 pg 26.2 - 32.6 08/07 Specimen Type: BLOOD No comment entered. Ordering Provider: Jameson CAI Report Released Date/Time: Jul 24, 2024 11:22 AM Reporting Lab: [facility] [place] [facility] [address] [facility] [address] Performing Lab: [facility] [place] [facility] [address] [facility] [address] [facility] [place] [facility] CBC AND DIFF (AUTO) NEUTROPHILS /100 LEUKOCYTES IN BLOOD BY AUTOMATED COUNT 48.7 43.7 - 75.8 08/07 Specimen Type: BLOOD No comment entered. Ordering Provider: Jameson CAI Report Released Date/Time: Jul 24, 2024 11:22 AM Reporting Lab: [facility] [place] [facility] [address] [facility] [address] Performing Lab: [facility] [place] [facility] [address] [facility] [address] [facility] [place] [facility] CBC AND DIFF (AUTO) LYMPHOCYTES /100 LEUKOCYTES IN BLOOD BY AUTOMATED COUNT 25.3 14.0 - 42.3 08/07 Specimen Type: BLOOD No comment entered. Ordering Provider: Jameson CAI Report Released Date/Time: Jul 24, 2024 11:22 AM Reporting Lab: [facility] [place] [facility] [address] [facility] [address] Performing Lab: [facility] [place] [facility] [address] [facility] [address] [facility] [place] [facility] CBC AND DIFF (AUTO) MONOCYTES/1 00 LEUKOCYTES IN BLOOD BY AUTOMATED COUNT 17.9 5.1 - 13.7 08/07 H Specimen Type: BLOOD No comment entered. Ordering Provider: Jameson CAI Report Released Date/Time: Jul 24, 2024 11:22 AM Reporting Lab: [facility] [place] [facility] [address] [facility] [address] Performing Lab: [facility] [place] [facility] [address] [facility] [address] [facility] [place] [facility] CBC AND DIFF (AUTO) EOSINOPHILS /100 LEUKOCYTES IN BLOOD BY AUTOMATED COUNT 5.8 0.4 - 6.8 08/07 Specimen Type: BLOOD No comment entered. Ordering Provider: Jameson CAI Report Released Date/Time: Jul 24, 2024 11:22 AM Reporting Lab: [facility] [place] [facility] [address] [facility] [address] Performing Lab: [facility] [place] [facility] [address] [facility] [address] [facility] [place] [facility] CBC AND DIFF (AUTO) BASOPHILS/1 00 LEUKOCYTES IN BLOOD BY AUTOMATED COUNT 1.8 0.1 - 2.0 08/07 Specimen Type: BLOOD No comment entered. Ordering Provider: Jameson CAI Report Released Date/Time: Jul 24, 2024 11:22 AM Reporting Lab: [facility] [place] [facility] [address] [facility] [address] Performing Lab: [facility] [place] [facility] [address] [facility] [address] [facility] [place] [facility] CBC AND DIFF (AUTO) NEUTROPHILS [#/VOLUME] IN BLOOD BY AUTOMATED COUNT 1.93 10*3/u L 2.20 - 7.60 08/07 L Specimen Type: BLOOD No comment entered. Ordering Provider: Jameson CAI Report Released Date/Time: Jul 24, 2024 11:22 AM Reporting Lab: [facility] [place] [facility] [address] [facility] [address] Performing Lab: [facility] [place] [facility] [address] [facility] [address] [facility] [place] [facility] CBC AND DIFF (AUTO) LYMPHOCYTES [#/VOLUME] IN BLOOD BY AUTOMATED COUNT 1.00 10*3/u L 1.00 - 3.20 08/07 Specimen Type: BLOOD No comment entered. Ordering Provider: Jameson CAI Report Released Date/Time: Jul 24, 2024 11:22 AM Reporting Lab: [facility] [place] [facility] [address] [facility] [address] Performing Lab: [facility] [place] [address] [address] [facility] [place] [facility] CBC AND DIFF (AUTO) EOSINOPHILS [#/VOLUME] IN BLOOD BY AUTOMATED COUNT 0.23 10*3/u L 0.03 - 0.44 08/07 Specimen Type: BLOOD No comment entered. Ordering Provider: Jameson CAI Report Released Date/Time: Jul 24, 2024 11:22 AM Reporting Lab: [facility] [place] [address] [address] Performing Lab: [facility] [place] [place] [address] [address] [facility] [place] [facility] CBC AND DIFF (AUTO) BASOPHILS [#/VOLUME] IN BLOOD BY AUTOMATED COUNT 0.07 10*3/u L 0.01 - 0.13 08/07 Specimen Type: BLOOD No comment entered. Ordering Provider: Jameson CAI Report Released Date/Time: Jul 24, 2024 11:22 AM Reporting Lab: [facility] [place] [address] [address] Performing Lab: [facility] [place] [address] [address] [facility] [place] [facility] CBC AND DIFF (AUTO) IMMATURE GRANULOCYTE S/100 LEUKOCYTES IN BLOOD BY AUTOMATED COUNT 0.5 0.0 - 0.7 08/07 Specimen Type: BLOOD No comment entered. Ordering Provider: Jameson CAI Report Released Date/Time: Jul 24, 2024 11:22 AM Reporting Lab: [facility] [place] [address] [address] Performing Lab: [facility] [place] [facility] [address] [facility] [address] [place] [facility] [place] [facility] CBC AND DIFF (AUTO) IMMATURE GRANULOCYTE S [#/VOLUME] IN BLOOD 0.02 10*3/u L 0.00 - 0.06 08/07 Specimen Type: BLOOD No comment entered. Ordering Provider: Jameson CAI Report Released Date/Time: Jul 24, 2024 11:22 AM Reporting Lab: [place] [facility] [place] [facility] [address] [facility] [address] Performing Lab: [place] [facility] [place] [facility] [address] [facility] [address] [place] [facility] [place] [facility] CBC AND DIFF (AUTO) NRBC % 0.0 0.0 - 0.0 08/07 Specimen Type: BLOOD No comment entered. Ordering Provider: Jameson CAI Report Released Date/Time: Jul 24, 2024 11:22 AM Reporting Lab: [place] [facility] [place] [facility] [address] [facility] [address] Performing Lab: [place] [facility] [place] [address] [address] [facility] [place] [facility] CBC AND DIFF (AUTO) NRBC, ABS 0.00 10*3/u L 0.00 - 0.00 08/07 Specimen Type: BLOOD No comment entered. Ordering Provider: Jameson CAI Report Released Date/Time: Jul 24, 2024 11:22 AM Reporting Lab: [place] [facility] [place] [facility] [address] [facility] [address] Performing Lab: [place] [facility] [place] [address] [address] [facility] [place] [facility] OSMOLALIT Y (SERUM) OSMOLALITY OF SERUM OR PLASMA 305 280 - 300 08/07 H Specimen Type: SERUM Comment: Manually entered by: RTO Ordering Provider: FALLON CUELLO Report Released Date/Time: Jul 24, 2024 02:18 PM Reporting Lab: [facility] [address] [facility] [address] Performing Lab: [facility] [address] [facility] [address] [facility] HEMOGLOBI N A1C PANEL HEMOGLOBIN A1C/HEMOGLO [...] Jul 24, 2024 02:23 PM Reporting Lab: [address] [address] Performing Lab: [address] [address] [facility] VITAMIN D (25-OH) 25-HYDROXYV ITAMIN D3 [MASS/VOLUM E] IN SERUM OR PLASMA 41 ng/mL 20 - 50 08/07 Specimen Type: SERUM No comment entered. Ordering Provider: FALLON CUELLO Report Released Date/Time: Jul 24, 2024 02:18 PM Reporting Lab: [address] [address] Performing Lab: [facility] [address] [facility] [address] [facility] MICROALBU MIN CREATININ E RATIO PANEL MICROALBUMI N/CREATININ E [MASS RATIO] IN URINE 52.0 mg/g 0 - 29.9 08/07 H Specimen Type: URINE No comment entered. Ordering Provider: FALLON CUELLO Report Released Date/Time: Jul 24, 2024 02:23 PM Reporting Lab: [address] [address] Performing Lab: [facility] [place] [facility] [address] [facility] [address] [facility] [place] [facility] MICROALBU MIN CREATININ E RATIO PANEL MICROALBUMI N [MASS/VOLUM E] IN URINE 10.4 mg/dL 08/07 Specimen Type: URINE No comment entered. Ordering Provider: FALLON CUELLO Report Released Date/Time: Jul 24, 2024 02:23 PM Reporting Lab: [place] [facility] [place] [facility] [address] [facility] [address] Performing Lab: [place] [facility] [facility] [address] [facility] [address] [facility] [place] [facility] MICROALBU MIN CREATININ E RATIO PANEL CREATININE [MASS/VOLUM E] IN URINE 199.85 mg/dL 08/07 Specimen Type: URINE No comment entered. Ordering Provider: FALLON CUELLO Report Released Date/Time: Jul 24, 2024 02:23 PM Reporting Lab: [facility] [address] [facility] [address] Performing Lab: [facility] [address] [facility] [address] [facility] TRN [facility] BASIC METABOLIC PANEL (non-fast ing) UREA NITROGEN [MASS/VOLUM E] IN SERUM OR PLASMA 19 mg/dL 7 - 25 08/07 Specimen Type: SERUM No comment entered. Ordering Provider: FALLON CUELLO Report Released Date/Time: Jul 24, 2024 02:18 PM Reporting Lab: [place] [facility] [place] [facility] [address] [facility] [address] Performing Lab: [place] [facility] [facility] [address] [facility] [address] [facility] BASIC METABOLIC PANEL (non-fast ing) GLUCOSE [MASS/VOLUM E] IN SERUM OR PLASMA 149 mg/dL 65 - 100 08/07 H Specimen Type: SERUM No comment entered. Ordering Provider: FALLON CUELLO Report Released Date/Time: Jul 24, 2024 02:18 PM Reporting Lab: [facility] [address] [facility] [address] Performing Lab: [place] [facility] [facility] [address] [facility] [address] [facility] BASIC METABOLIC PANEL (non-fast ing) SODIUM [MOLES/VOLU ME] IN SERUM OR PLASMA 141 mmol/L 135 - 145 08/07 Specimen Type: SERUM No comment entered. Ordering Provider: FALLON CUELLO Report Released Date/Time: Jul 24, 2024 02:18 PM Reporting Lab: [facility]N [facility] [address] [facility] [address] Performing Lab: [facility]RL TRN [facility] [address] [facility] [address] [facility] BASIC METABOLIC PANEL (non-fast ing) POTASSIUM [MOLES/VOLU ME] IN SERUM OR PLASMA 3.4 mmol/L 3.5 - 5.0 08/07 L Specimen Type: SERUM No comment entered. Ordering Provider: FALLON CUELLO Report Released Date/Time: Jul 24, 2024 02:18 PM Reporting Lab: [facility]N [facility] [address] [facility] [address] Performing Lab: [facility]RL [facility] [address] [facility] [address] [facility] CENTERRRIVERVIEW [facility] CENTERN [facility]USE [facility] BASIC METABOLIC PANEL (non-fast ing) CHLORIDE [MOLES/VOLU ME] IN SERUM OR PLASMA 106 mmol/L 100 - 110 08/07 Specimen Type: SERUM No comment entered. Ordering Provider: FALLON CUELLO Report Released Date/Time: Jul 24, 2024 02:18 PM Reporting Lab: [facility] [place] [facility] [address] [facility] [address] Performing Lab: [place] [facility] [place] [facility] [address] [facility] [address] [facility] CENTERRRIVERVIEW [facility] CENTERN [facility]USE [facility] BASIC METABOLIC PANEL (non-fast ing) CARBON DIOXIDE, TOTAL [MOLES/VOLU ME] IN SERUM OR PLASMA 26 meq/L 20 - 30 08/07 Specimen Type: SERUM No comment entered. Ordering Provider: FALLON CUELLO Report Released Date/Time: Jul 24, 2024 02:18 PM Reporting Lab: [address] [address] Performing Lab: [address] [address] [facility] BASIC METABOLIC PANEL (non-fast ing) CALCIUM [MASS/VOLUM E] IN SERUM OR PLASMA 9.0 mg/dL 8.5 - 10.2 08/07 Specimen Type: SERUM No comment entered. Ordering Provider: FALLON CUELLO Report Released Date/Time: Jul 24, 2024 02:18 PM Reporting Lab: [address] [address] Performing Lab: [address] [address] [facility] BASIC METABOLIC PANEL (non-fast ing) CREATININE [MASS/VOLUM E] IN SERUM OR PLASMA 0.73 mg/dL 0.50 - 1.40 08/07 Specimen Type: SERUM No comment entered. Ordering Provider: FALLON CUELLO Report Released Date/Time: Jul 24, 2024 02:18 PM Reporting Lab: [address] [address] Performing Lab: [address] [address] [facility] BASIC METABOLIC PANEL (non-fast ing) GLOMERULAR FILTRATION RATE/1.73 SQ M.PREDICTED [VOLUME RATE/AREA] IN SERUM, PLASMA OR BLOOD BY CREATININE- BASED FORMULA (CKD-EPI 2020) 88 mL/min 60 08/07 Specimen Type: SERUM No comment entered. Ordering Provider: FALLON CUELLO Report Released Date/Time: Jul 24, 2024 02:18 PM Reporting Lab: [address] [address] Performing Lab: [facility] [place] [facility] [address] [facility] [address] [facility] [place] [facility] Vital Signs Combined list of inpatient and outpatient Vital Signs from Department of Defense and Veterans Affairs, ranging from 12 months to all on record, depending upon the facility. Vital Sign Value Date Comments Source SYSTOLIC BLOOD PRESSURE 88 10/29/19 13:17:34 [facility] [place] [facility] DIASTOLIC BLOOD PRESSURE 58 025 13:17:34 [facility] [place] [facility] PULSE OXIMETRY 97 10/28/2024 13:17:34 [facility] [place] [facility] PAIN 10 10/28/2024 13:17:34 [facility] [place] [facility] TEMPERATURE 98.3 10/28/2024 13:17:34 [facility] [place] [facility] PULSE 103 10/28/2024 13:17:34 [facility] [place] [facility] RESPIRATION 16 10/28/2024 13:17:34 [facility] [place] [facility] SYSTOLIC BLOOD PRESSURE 107 10/03/19 11:03:25 [facility] [place] [facility] DIASTOLIC BLOOD PRESSURE 67 025 11:03:25 [facility] [place] [facility] PULSE OXIMETRY 97 10/02/2024 11:03:25 [facility] [place] [facility] PAIN 6 10/02/2024 11:03:25 [facility] [place] [facility] TEMPERATURE 98 10/02/2024 11:03:25 [facility] [place] [facility] PULSE 97 10/02/2024 11:03:25 [facility] [place] [facility] RESPIRATION 18 10/02/2024 11:03:25 [facility] [place] [facility] SYSTOLIC BLOOD PRESSURE 107 08/23/19 25 11:02:31 [facility] [place] [facility] DIASTOLIC [...] 08/16/2024 13:41:15 [facility] [place] [facility] Encounters Combined list of: 1) Encounters from Department of Veterans Affairs facilities going backup to the last 18 months, not all [place] inpatient encounters are included; 2) Encounters from the Department of Defense facilities going backup to 280 months. 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 lar hypofun ctjacqui LONDONDarrelASHERN Mikey Juma 05/16 [facility] [place] [facility] [place] [facility] Outpatient Encounter [id number] 06/02 [facility] [place] [place] [facility] [place] [facility] OFFICE O/P EST MOD 30-39 MIN [id number] Diagnos is: ICD-10- CM E11.8 Type 2 diabete s mellitu s with unspeci fied complic atrosa maria VALENTINETOÑO PORTILLO 06/05 [facility] [place] Outpatient Encounter [id number] Diagnos is: ICD-10- CM Z04.89 Encount er for examina tion and observa tion for oth reasons RAMIREZROHINI Mikey 06/09 [facility] Outpatient Encounter [id number] Diagnos is: ICD-10- CM D80.1 Nonfami lial hypogam pelonbu RAMONA Rivera MD 06/23 [facility] OFFICE O/P EST MOD 30 MIN [id number] Diagnos is: ICD-10- CM F33.9 Major depress macr disorde r, recurre nt, unspeci fied MEREDITH,GIHYU N 07/12 [facility] [place] [facility] FEE [id number] Diagnos is: ICD-10- CM 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, recurre nt, unspeci fied MEREDITH,GIHYU N 07/12 [facility] [place] Outpatient Encounter [id number] 07/12 [facility] [place] OFFICE O/P EST MOD 30 MIN [id number] Diagnos is: ICD-10- CM 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 VEGA PENA 07/13 [facility] [place] Outpatient Encounter [id number] 07/29 [facility] [place] OFFICE O/P EST MOD 30 MIN [id number] Diagnos is: ICD-10- CM I10 Essenti al (primar y) hyperte TOÑO Flood 08/11 [facility] [place] Outpatient Encounter [id number] Diagnos is: ICD-10- CM E11.8 Type 2 diabete s mellitu s with unspeci fied complic ations JAYLEN CUELLO 08/12 [facility] Outpatient Encounter [id number] 09/12 [facility] Outpatient Encounter [id number] 10/02 [facility] OFFICE O/P EST LOW 20 MIN [id number] Diagnos is: ICD-10- CM 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 TOÑO CAI 10/08 [facility] [facility] Outpatient Encounter [id number] 10/08 [facility] OFFICE O/P EST HI 40 MIN [id number] Diagnos is: ICD-10- CM 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 VEGA PENA 10/09 [facility] Outpatient Encounter [id number] Diagnos is: ICD-10- CM 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 JAYLEN CUELLO 10/10 [facility] Outpatient Encounter [id number] LESTER ANDERSON MD 10/11 [facility] DENOSUMAB INJECTION [id number] Diagnos is: ICD-10- CM 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 JUANA,MAINE E M 10/17 [facility]P EST LOW 20 MIN [id number] Diagnos is: ICD-10- CM 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, recurre nt, unspeci fied MEREDITH,GIHYU N 10/31 [place] [facility] OFFICE O/P EST LOW 20 MIN [id number] Diagnos is: ICD-10- CM F33.0 Major depress marc disorde r, recurre nt, mild MEREDITH,GIHYU N 10/31 [facility] OFF/OP EST MAY X REQ PHY/QHP [id number] Diagnos is: ICD-10- CM Z04.9 Encount er for examina tion and observa tion for unsp reason Juma TALBOT 10/31 [facility] Outpatient Encounter [id number] 10/31 [facility] OFFICE O/P EST LOW 20 MIN [id number] Diagnos is: ICD-10- CM S41.111 A Lacerat ion w/o foreign body of right upper arm, init encntr JUAN ERNST 10/31 [facility] OFFICE O/P EST LOW 20 MIN [id number] [id number] Diagnos is: ICD-10- CM R60.0 Localiz ed edema JUAN ERNST 11/01 [facility] NURSING ASSESSMENT /EVALUATN [id number] [id number] Diagnos is: ICD-10- CM R22.30 Localiz ed swellin g, mass and lump, unspeci fied upper limb Gabino KENDALL 11/01 [facility] En[facility] [id number] 11/05 [facility] Outpatient Encounter [id number] 11/21 [facility] OFFICE O/P EST LOW 20 MIN [id number] Diagnos is: ICD-10- CM M81.0 Age-rel ated osteopo rosis w/o current patholo gical magy e JAYLEN CUELLO 11/26 [facility] Outpatient Encounter [id number] 1.01/21 [facility] OFFICE O/P EST LOW 20 MIN [id number] 1. Diagnos is: ICD-10- CM M06.9 Rheumat oid arthrit is, unspeci fied TOÑO CAI 02/11 [facility] Outpatient Encounter [id number] [facility] Outpatient Encounter [id number] 1.02/12 [facility] Outpatient Encounter [id number] 02/26 [facility] Outpatient Encounter [id number] 02/27 [facility] OFFICE O/P EST MOD 30 MIN [id number] Diagnos is: ICD-10- CM 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, recurre nt, unspeci fied MEREDITHGIHYU N 02/27 [facility] FAC[facility] FEE [id number] Diagnos is: ICD-10- CM 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, recurre nt, unspeci fied MEREDITHGIHYU N 02/27 [facility] Outpatient Encounter [id number] 03/14 [facility] Outpatient Encounter [id number] 03/14 [facility] CPTR OPHTH DX IMG POST SEGMT [id number] [id number] Diagnos is: ICD-10- CM 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, right eye, interme d dry stage ANALI VALLADARES 03/25 [facility] COMPRE OPH EXAM EST PT 1/> [id number] Diagnos is: ICD-10- CM 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, right eye, interme d dry stage BORASKDorieANALI JUAN E 03/25 [facility] FIT SPECTACLES MULTIFOCAL [id number] [id number] Diagnos is: ICD-10- CM Z46.0 Encount er for fit/adj st of spectac les and contact lenses ARCENIOEDITHANALI JUAN E 03/25 [facility] Outpatient Encounter [id number] [facility] OFFICE O/P EST LOW 20 MIN [id number] Diagnos is: ICD-10- CM M75.51 Bursiti s of right shoulde r TOÑO CAI 04/02 [facility] OFFICE O/P EST MOD 30 MIN [id number] 1. Diagnos is: ICD-10- CM L57.0 Actinic keratos is VEGA PENA 04/04 [facility] PROSTHETIC TRAING 1ST ENC [id number] [id number] Diagnos is: ICD-10- CM M54.9 Dorsalg ia, unspeci JAYLON Suresh 04/08 [facility] Outpatient Encounter [id number] [facility] THERAPEUTI C EXERCISES [id number] 1. Diagnos is: ICD-10- CM M54.9 Dorsalg ia, unspeci Juma Orellana 04/16 [facility] Outpatient Encounter [id number] 04/28 [facility] THERAPEUTI C EXERCISES [id number] 1. Diagnos is: ICD-10- CM M54.9 Dorsalg ia, unspeci JAYLON Suresh 05/02 [facility] Outpatient Encounter [id number] 05/08 [facility] THERAPEUTI C EXERCISES [id number] 1. 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 JAYLEN CUELLO 05/29 [facility] Outpatient Encounter [id number] 1.05/29 [facility] Outpatient Encounter [id number] 1.06/03 [facility] OFFICE O/P EST MOD 30 MIN [id number] Diagnos is: ICD-10- CM 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, recurre nt, unspeci fied CALVIN HARPER N 06/05 [place] [facility]LE[facility]ALTH FAC[facility] FEE [id number] 1. Diagnos is: ICD-10- CM 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, recurre nt, unspeci fied CALVIN HARPER N 06/05 [facility] Outpatient Encounter [id number] [facility] MTMS BY PHARM ADDL 15 MIN [id number] Diagnos is: ICD-10- CM E11.8 Type 2 diabete s mellitu s with unspeci fied complic ations ENE MELENDEZ A 06/17 [facility] OFFICE O/P EST MOD 30 MIN [id number] Diagnos is: ICD-10- CM 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 tion or abscess w/o bleTOÑO Ruth 06/17 [facility] QNHP OL DIG ASSMT&MGMT 5-10 [id number] [id number] Diagnos is: ICD-10- CM Z96.41 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) PARVIZJUAN ALBERTO SILVA 06/17 [facility] En[facility] [id number]/21 [facility] Out[facility] Encounter [id number]/26 [facility] Out[facility] Encounter [id number] 07/02 [facility] Out[facility] Encounter [id number] 07/04 [facility] Encounter [id number]/05 [facility] OFF/OP CNSLTJ NEW/EST MOD 40 [id number] [id number] Diagnos is: ICD-10- CM R10.0 Acute abdomen JORDI DONALDSON S 07/05 [facility] Encounter [id number] 07/10 [facility] En[facility] [id number] 07/10 [facility] Out[facility] Encounter [id number] 07/14 [facility] SYNCH AUDIO-ONLY EST SF 10 [id number] Diagnos is: ICD-10- CM E11.8 Type 2 diabete s mellitu s with unspeci fied complic ations CUELLOJAYLEN LACEY 07/15 [facility] NQHP OL DIG ASSMT&MGMT 5-10 [id number] Diagnos is: ICD-10- CM Z96.41 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) FREDDY MELENDEZDI A 07/16 [facility] NQHP OL DIG ASSMT&MGMT 5-10 [id number] Diagnos is: ICD-10- CM Z96.41 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) ALENE A 07/16 [facility] En[facility] [id number]/22 [facility] NQHP OL DIG ASSMT&MGMT 5-10 [id number] Diagnos is: ICD-10- CM 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 tion or abscess w/o bleedin g SOVEROW,CH RISTY A 07/29 [facility] Out[facility] Encounter [id number]/31 [facility] OFF/OP CNSLTJ NEW/EST MOD 40 [id number] Diagnos is: ICD-10- CM R42 Dizzine ss and giddine ss NATALIA RAO 08/01 [facility] Outpatient Encounter [id number] 08/02 [facility] (6[facility] NQHP OL DIG ASSMT&MGMT 5-10 [id number] [id number] Diagnos is: ICD-10- CM E11.8 Type 2 diabete s mellitu s with unspeci fied complic ations LUCERO PICKETT N 08/06 [facility] Outpatient Encounter [id number] 08/08 [facility] Outpatient Encounter [id number] 08/09 [facility] NQHP OL DIG ASSMT&MGMT 5-10 [id number] [id number] Diagnos is: ICD-10- CM I10 Essenti al (primar y) hyperte nsion SOVEROSEAS,CH RISTY A 08/09 [facility] OFFICE O/P EST LOW 20 MIN [id number] [id number] Diagnos is: ICD-10- CM 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, unspeci fied TOÑO CAI F 08/16 [facility] OFF/OP EST MAY X REQ PHY/QHP [id number] [id number] Diagnos is: ICD-10- CM E11.8 Type 2 diabete s mellitu s with unspeci fied complic ations MARYANNE RAM N 08/16 [facility] En[facility] [id number] 08/16 [facility] Outpatient Encounter [id number] 08/20 [facility] OFFICE O/P EST HI 40 MIN [id number] [id number] Diagnos is: ICD-10- CM K45.8 Oth abdomin al hernia without obstruc tion or gangren e GOJIHANJORDI S 08/20 [facility] Outpatient Encounter [id number] Diagnos is: ICD-10- CM E11.8 Type 2 diabete s mellitu s with unspeci fied complic ations MAINE ARIAS M 08/22 [facility] OFFICE O/P EST MOD 30 MIN [id number] [id number] Diagnos is: ICD-10- CM Z96.41 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) JAYLEN CUELLO 08/22 [facility] CONT GLUC MNTR ANALYSIS I&R [id number] [id number] Diagnos is: ICD-10- CM E11.8 Type 2 diabete s mellitu s with unspeci fied complic ations JAYLEN CUELLO 08/22 [facility] [place] Outpatient Encounter [id number] 08/22 [facility] Outpatient Encounter [id number] 08/23 [facility] Encounter [id number] 08/27 [facility] Encounter [id number] 09/08 [facility] Encounter [id number] 09/24 [facility] MTMS BY PHARM ADDL 15 MIN [id number] [id number] Diagnos is: ICD-10- CM 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, recurre nt, unspeci fied BRYAN GREENFIELD D 09/27 [facility] OFF/OP EST MAY X REQ PHY/QHP [id number] [id number] Diagnos is: ICD-10- CM M54.50 Low back pain, unspeci fied ROMANARJUN A 10/02 [facility] OFFICE O/P EST MOD 30 MIN [id number] [id number] Diagnos is: ICD-10- CM M54.42 Lumbago with sciatic a, left side JUAN ERNST 10/02 [facility] PH1 ASSMT&MGMT NQHP 5-10 [id number] [id number] Diagnos is: ICD-10- CM E11.8 Type 2 diabete s mellitu s with unspeci fied complic ations MAINE ARIAS 10/02 [facility] SYNCH AUDIO-ONLY EST SF 10 [id number] [id number] Diagnos is: ICD-10- CM E11.8 Type 2 diabete s mellitu s with unspeci fied complic ations KHUSHBOOALI CE 10/02 [facility] CONT GLUC MNTR ANALYSIS I&R 91946-6.63 [id number] Diagnos is: ICD-10- CM E11.8 Type 2 diabete s mellitu s with unspeci fied complic ations CUELLOALI CE 10/03 [facility] CONT [facility]UC MNTR PT PROV EQP [id number] [id number] Diagnos is: ICD-10- CM E11.8 Type 2 diabete s mellitu s with unspeci fied complic ations LITADarrelMAINE E M 10/03 [facility] OFFICE O/P EST MOD 30 MIN [id number] [id number] Diagnos is: ICD-10- CM L57.0 Actinic keratos is VEGA PENA 10/03 [facility] Out[facility] Encounter [id number] 10/08 [facility] NQHP OL DIG ASSMT&MGMT 5-10 [id number] [id number] Diagnos is: ICD-10- CM I10 Essenti al (primar y) hyperte nsion SOVEROW,CH RISTY A 10/18 [facility] Out[facility] Encounter [id number] 10/22 [facility] OFFICE O/P EST LOW 20 MIN [id number] [id number] Diagnos is: ICD-10- CM M06.9 Rheumat oid arthrit is, anmoli demetri VALENTINEJESETOÑO MCARTHUR 10/28 [facility] [place] [facility] Social History Combined list of available smoking, tobacco, and other social history from Department of Defense and Veterans Affairs facilities. Social History Type Response Date Comment Source Tobacco smoking status [facility]-TO[facility] USE FORMER CIGARETTES 06/17/2024 [facility] History of tobacco use [place] NEVER USED OTHER TYPE 06/17/2024 [facility] History of tobacco use [place] FORMER USER 06/05/2023 [facility] History [facility] tobacco use [place] FORMER USER 06/06/2022 [place] [facility] [place] [facility] of [facility] 15 Y[facility] 06/30/2021 [place] [facility] [facility] History [facility] 05[facility]22/2020 [place] [facility] [place] [facility] History of tobacco [facility] 15 YRS OR MORE 05[facility]08/2018 [place] [facility] [place] [facility] History of tobacco use QUIT TOBACCO USE > 7 YEARS AGO 11/10/2017 [facility] History of tobacco use QUIT TOBACCO USE > 7 YEARS AGO 10/21/2016 [place] [facility] [place] [facility] History of tobacco use QUIT TOBACCO USE > 7 YEARS AGO 09/18/2015 stopped 50 years ago [facility] [place] [facility] History of tobacco use HISTORY OF SMOKING 05/19/2005 [place] [facility] [facility] History of tobacco use HISTORY OF SMOKING 05/31/2004 [place] [facility] [facility] History of tobacco use HISTORY OF SMOKING 06/04/2003 [facility] [place] [facility] History of tobacco use HISTORY OF SMOKING 06/03/2002 [facility] [place] [facility] Plan of Care List of future care activities from Department of Veterans Affairs facilities. Additional future care activities may be listed in the Assessment and Plan section. Date/Time Care Activity Care Activity Detail Facili ty 11/15/2024 AMBULATORY - MEDICINE [facility]AT[facility] Advance Directives List of completed, amended, or rescinded Advance Directives on record at Department of [facility] facilities. An actual copy of the Directive is not included. Date Advance Directive Provider Source 06/02/2023 ADVANCE DIRECTIVE JENNIFER QUIROS [facility]
--- OUTSIDE RECORDS SUMMARY | 2024-10-29 14:47 | XMS_ITS | Encounter Summary ---
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 Name Role Phone TOÑO PETER Primary [...] [place] SUPPLEMEN MASTER PSUED O MEDEX [facility] E Mar 19, 2004 [id number] HOLLIE SHEPHERD PATIENT [place] MED[place] SUPPLEMEN MASTER MEDEX [place] E Mar 19, 2004 [id number] [phone] HOLLIE SHEPHERD [place] SUPPLEMEN MASTER MEDEX [place] E Mar 19, 2004 [id number] [phone] HOLLIE SHEPHERD PATIENT BCBS [facility] MEDICARE SUPPLEMEN MASTER PSUED O MEDEX [place] E Mar 19, 2004 [id number] HOLLIE SHEPHERD PATIENT MEDICARE (WNR) MEDICARE (M) PART B Mar 19, 2004 PART B [id number] [phone] HOLLIE SHEPHERD PATIENT MEDICARE (WNR) MEDICARE (M) PART B Mar 19, 2004 PART B [id number] [phone] HOLLIE SHEPHERD PATIENT MEDICARE (WNR) MEDICARE (M) PART B Mar 19, 2004 PART B [id number] HOLLIE SHEPHERD PATIENT MEDICARE (WNR) MEDICARE (M) PART A Feb 17, 2003 PART A [id number] CORAHOLLIE SILVA PATIENT MEDICARE (WNR) MEDICARE (M) PART B Feb 17, 2003 PART B [id number] HOLLIE SHEPHERD PATIENT MEDICARE (WNR) MEDICARE () PART A Feb 17, 2003 PART A [id number] HOLLIE SHEPHERD PATIENT MEDICARE (WNR) MEDICARE () PART A Feb 17, 2003 PART A [id number] HOLLIE SHEPHERD PATIENT MEDICARE (WNR) MEDICARE () PART A Feb 17, 2003 PART A [id number] [phone] HOLLIE SHEPHERD PATIENT MEDICARE (WNR) MEDICARE (M) PART A Feb 17, 2003 PART A [id number] HOLLIE SHEPHERD PATIENT MEDICARE (WNR) MEDICARE (M) PART B Feb 17, 2003 PART B [id number] HOLLIE SHEPHERD PATIENT Selected Encounter This section includes the information on record at [place] for the Encounter. Date/Time Encounter Type Encounter Description Reason Provider Source October 28, 2024 01:30 PM OFFICE O/P EST LOW 20 MIN PRIMARY CARE/MEDICINE ICD-10-CM M06.9 Rheumatoid arthritis, unspecified JUAN LUIS PETER Mikey Encounter Template Text not used by [place] Assessments - Encounter Diagnoses This section includes the primary and secondary diagnoses documented for the Encounter. Date/Time Primary/Secondary Diagnosis Diagnosis Name Provider Source October 28, 2024 02:16 PM PRIMARY Rheumatoid arthritis, unspecified JACINTO PETER [place] [facility] October 28, 2024 02:16 PM SECONDARY Age-related osteoporosis w/o current pathological fracture JACINTO PETER Yousif [facility] Plan of Treatment: Future Appointments (+ 6 months) and Future Tests (+/- 45 days) The Plan of Treatment section includes future care activities for the patient from all [place] [facility]. This section includes future appointments and future orders which are active, pending or scheduled. Future Appointments This section includes appointments that were scheduled to occur 6 months from the date of the Encounter, up to a maximum of 20 appointments. The data comes from all [facility]. Appointment Date/Time Appointment Type Appointme nt Facility Name November 15, 2024 11:00 AM AMBULATORY - MEDICINE [facility] Nov 27, 2024 11:00 AM AMBULATORY MEDICINE [facility] Feb 25, 2025 10:00 AM AMBULATORY - PSYCHIATRY [facility] Apr 02, 2025 10:30 AM AMBULATORY - MEDICINE [facility] Active, Pending, and Scheduled Orders [...] The data comes from all [facility]. Test Date/Time Test Type Test Details Facility Name November 13, 2024 12:00 AM Laboratory - Chemistry Order HEMOGLOBIN A1C PANEL BLOOD (LAV-BLOOD) [facility] November 13, 2024 12:00 AM Laboratory - Chemistry Order BASIC METABOLIC PANEL (fasting) BLOOD (SST-SERUM) [facility] November 13, 2024 12:00 AM Laboratory - Chemistry Order LIPID PANEL FASTING BLOOD (SST-SERUM) [facility] November 13, 2024 12:00 AM Laboratory - Chemistry Order LIVER FUNCTION BLOOD (SST-SERUM) [facility] November 13, 2024 12:00 AM Laboratory - Chemistry Order CBC BLOOD (LAV-BLOOD) [facility] Nov 22, 2024 12:00 AM Laboratory - Chemistry Order LIPID PANEL FASTING BLOOD (SST-SERUM) [facility] Nov 22, 2024 12:00 AM Laboratory - Chemistry Order BASIC METABOLIC PANEL (non-fasting) BLOOD (SST-SERUM) [facility] Nov 22, 2024 12:00 AM Laboratory - Chemistry Order MICROALBUMIN CREATININE RATIO PANEL URINE (RANDOM) [facility] Nov 22, 2024 12:00 AM Laboratory - Chemistry Order HEMOGLOBIN A1C PANEL BLOOD (LAV-BLOOD) [facility] Nov 22, 2024 12:00 AM Laboratory - Chemistry Order ISLET CELL Ab SCREEN w/REFLEX TO TITER BLOOD (SST-SERUM) [facility] Nov 22, 2024 12:00 AM Laboratory - Chemistry Order LUI-65 Ab (Quest) BLOOD (SST-SERUM) [facility] Nov 23, 2024 12:00 AM Laboratory - Chemistry Order BASIC METABOLIC PANEL (non-fasting) BLOOD (SST-SERUM) [facility] Nov 23, 2024 12:00 AM Laboratory - Chemistry Order OSMOLALITY (SERUM) BLOOD (SST-SERUM) [facility] Nov 23, 2024 12:00 AM Laboratory - Chemistry Order VITAMIN D (25-OH) BLOOD (SST-SERUM) [facility] Nov 23, 2024 12:00 AM Laboratory - Chemistry Order CALCIUM BLOOD (SST-SERUM) [facility] Vital Signs: All taken on the encounter date This section contains inpatient and outpatient Vital Signs collected on the date of the Encounter. Date/Time Temperature Pulse Blood Pressure Respiratory Rate SP02 Pain Height Weight Body Mass Index Source October 28, 2024 01:17 PM 98.3 103 88/58 16 97 10 [facility] Social History: Smoking Status (Most current) [...] place. Date/Time Current Smoking Status Comment [facility] Jun 17, 2024 10:31 AM VA-TOBACCO USE FOR TAMMY CIGARETTES [place] [facility] [place] [facility] Tobacco Use History This section includes a history of the smoking, or tobacco-related health factors, that were collected on or before the date of the Encounter. The data comes from the [place] facility where the Encounter took place. Date/Time Smoking Status/Tobac co Use Comment Facility Jun 17, 2024 10:31 AM VA-TOBACCO USE FORMER CIGARETTES [place] [facility] [place] [facility] Jun 05, 2023 11:00 AM VA-TOBACCO FORMER USER [facility] [place] [facility] Jun 05, 2023 11:00 AM VA-TOBACCO QUIT 15 YRS OR MORE [facility] [place] [facility] Jun 06, 2022 01:00 PM VA-TOBACCO FORMER USER [facility] [place] [facility] Jun 06, 2022 01:00 PM VA-TOBACCO QUIT 15 YRS OR MORE [facility] [place] [facility] Jun 30, 2021 02:37 PM VA-TOBACCO FORMER USER [facility] [place] [facility] Jun 30, 2021 02:37 PM VA-TOBACCO QUIT 5 TO < 15 YRS [facility] [place] [facility] May 22, 2020 03:30 PM VA-TOBACCO NEVER USED [facility] [place] [facility] May 08, 2018 02:03 PM VA-TOBACCO FORMER USER [facility] [place] [facility] May 08, 2018 02:03 PM VA-TOBACCO QUIT 15 YRS OR MORE [facility] [place] [facility] November 10, 2017 02:33 PM QUIT TOBACCO USE > 7 YEARS AGO [facility] [place] [facility] October 21, 2016 01:55 PM QUIT TOBACCO USE > 7 YEARS AGO [facility] [place] [facility] Sep 18, 2015 11:24 AM QUIT TOBACCO USE > 7 YEARS AGO stopped 50 years ago [facility] [place] [facility] May 19, 2005 08:01 AM HISTORY OF SMOKING [facility] [place] [facility] May 31, 2004 01:02 PM HISTORY OF SMOKING [facility] [place] [facility] Jun 04, 2003 07:57 AM HISTORY OF SMOKING [facility] Jun 03, 2002 01:11 PM HISTORY OF SMOKING [facility] Jun 03, 2002 01:11 PM QUIT TOBACCO USE > 7 YEARS AGO [facility] Advance Directives: All historical and current [...] Jun 02, 2023 ADVANCE DIRECTIVE JENNIFER QUIROS [facility] Radiology Reports: +/- 30 days of [...] AM BONE DENSITY AXIAL HIPS,PELVIS.SPINE: BEBO SHEPHERD [id number] -[phone] M Exm Date: OCT 08, 2024@10:13 Req Phys: ALLIE CUELLO Loc: [facility] ENDOCRINE MD 1 (Req'g Loc) Img Loc: [facility] 1 Service: Unknown [place] [address] (Case [phone] COMPLETE) BONE DENSITY AXIAL HIPS,PELVIS.SP(RAD Detailed) CPT:13636 Reason for Study: bone density below normral range Clinical History: Report Status: Verified Date Reported: OCT 08, 2024 Date Verified: OCT 08, 2024 Manager Body E-Sig:/ES/NAPOLEON ELLIOTT JR Report: Study: DEXA scan. Comparison: DEXA scan from June 29, 2022. Findings: Images obtained on a [employer] DEXA Machine. The lumbar spine is not [...] than 127 lbs., or smoking). 6. The [place] [employer] recommends pharmacologic therapy for [...] Foundation recommendations can be found in http://www.nof.org/hcp/pra mangoice/kjqlczhk-egj-telxxme l-guidelines/ clinicians-guide. All treatment decisions require clinical judgment and consideration of individual factors including patient preferences, comorbidities, prior drug use, risk factors not captured in the FRAX model (e.g. sarcopenia, falls, vitamin D deficiency, increased bone turnover, interval significant decline in bone density) and possible under- or overestimation of fracture risk by FRAX. Useful resources regarding osteoporosis and treatment guidelines: National Osteoporosis Foundation https://www.nof.org/dexter smith/diagnosis-information/b utm-vauuyno-n amtesting/ International Osteoporosis Foundation https://www.iofbonehealth. org/ International Society for Clinical Densitometry https://www.iscd.org/patie nt-information/ FRAX(R) Fracture Risk Assessment Tool https://www.tobias.ac.u k/FRAX/ Primary Diagnostic Code: No immediate attention required Primary Interpreting Staff: NAPOLEON ELLIOTT JR, Radiologist (Manager Body) /NAPOLEON SCHMITZ JR [facility] Encounter Notes: All associated encounter notes This section contains the clinical notes associated to the Encounter. Date/Time Encounter Note(s) Provider Source October 28, 2024 02:04 PM PHYSICIAN SECURITY SYSTEMS ENGINEER NOTE: LOCAL TITLE: RUBY NOTE STANDARD TITLE: PHYSICIAN SECURITY SYSTEMS ENGINEER NOTE DATE OF NOTE: OCTOBER 28, 2024@14:04 ENTRY DATE: OCTOBER 28, 2024@14:04:07 AUTHOR: TOÑO PETER COSIGNER: URGENCY: STATUS: COMPLETED CC/HPI/A/P: 84 year old MALE here in follow-up for; RA< 'my arms and left leg hurt this is chronic, a bit worse lately. he used a few Vicodi from Sick call. he has one left. Takes a tylenol in the am. PEnding rheumatology f/u in a week or two. REports that he is taking 5mg of prednisone daily. We are gradually transitioning ALL rxs to HERE at [place] for safety. Review of systems: Patient reports no changes from [facility], in meds or any admissions. Active problems - Computerized Problem List is the source for the followin. Acute mesenteric ischaemia 2. Elevated PSA 3. 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 4. Cerebrovascular disease s/p L carotid endarterectomy [...] Urologist 19. Rosacea 20. Hypertension (SNOMED CT 57100612) 21. Spinal Stenosis * 22. Hyperlipidemia (SNOMED CT 08605980) 23. Osteoarthritis * 24. Lower Back Pain * 25. Vertigo 26. Diabetes mellitus type 2 (SNOMED CT 10103372) 27. Gastroesophageal Reflux Disorder SERVICE CONNECTED % [...] NEEDED Indication: FOR LOW BLOOD SUGAR 7) HYDROCODONE 5MG/ACETAMINOPHEN 325MG TAB TAKE 1 TABLET BY ACTIVE MOUTH EVERY 6 HOURS NEEDED Indication: FOR PAIN 8) HYDROXYCHLOROQUINE SULFATE 200MG TAB TAKE ONE TABLET BY ACTIVE MOUTH ONCE DAILY MONDAY-MONDAY AND THEN TAKE 1 TABLET TWICE DAILY ON MONDAY AND MONDAY. DO NOT TAKE WITH CITALOPRAM 9) INSULIN,ASPART,HUMAN 100 UNIT/ML INJ INJECT 80 UNITS ACTIVE SUBCUTANEOUSLY EVERY DAY FOR USE WITH CONTINUOUS INSULIN INFUSION DEVICE Indication: FOR DIABETES 10) KETODIASTIX GLUCOSE KETONE TEST STRIP USE 1 STRIP TO TEST ACTIVE BLOOD SUGARS ONE TIME NEEDED Indication: DIABETES 11) LEFLUNOMIDE 20MG TAB TAKE ONE TABLET BY MOUTH ONCE DAILY ACTIVE 12) LOSARTAN 100MG TAB TAKE ONE TABLET BY MOUTH ONCE DAILY FOR ACTIVE BLOOD PRESSURE/HEART Indication: FOR HIGH BLOOD PRESSURE 13) METOPROLOL SUCCINATE 25MG SA TAB TAKE ONE-HALF TABLET BY ACTIVE MOUTH ONCE DAILY FOR BLOOD PRESSURE/HEART Indication: FOR CHRONIC HEART FAILURE 14) MULTIVIT/OPHTH AREDS2/LUTE/ZEAX CAP/TAB TAKE 1 CAPSULE BY ACTIVE MOUTH TWICE DAILY IN THE MORNING AND EVENING, WITH FOOD 15) PILOCARPINE HCL 5MG TAB TAKE ONE TABLET BY MOUTH TWICE DAILY ACTIVE 16) PREDNISONE 2.5MG TAB TAKE THREE TABLETS BY MOUTH ONCE DAILY ACTIVE 17) PREDNISONE 20MG TAB TAKE ONE TABLET BY MOUTH ONCE DAILY ACTIVE Indication: LUMBAGO WITH SCIATICA 18) PREDNISONE 5MG TAB TAKE ONE TABLET BY MOUTH ONCE DAILY ACTIVE 19) PSYLLIUM ORAL PWD TAKE 2 TEASPOONFULS BY MOUTH ONCE DAILY ACTIVE (MIX WITH AT LEAST 8OZ. OF WATER OR OTHER FLUID) Indication: FOR CONSTIPATION 20) TAMSULOSIN HCL 0.4MG CAP TAKE TWO CAPSULES BY MOUTH AT ACTIVE BEDTIME Active Non-VA Medications Status 1) Non-VA ACETAMINOPHEN TAB BY MOUTH ONCE DAILY NEEDED ACTIVE 2) Non-VA ASPIRIN 81MG EC TAB 81MG BY MOUTH ONCE DAILY ACTIVE 3) Non-VA FUROSEMIDE 20MG TAB 20MG BY MOUTH ONCE DAILY ACTIVE 4) Non-VA OMEPRAZOLE 20MG EC CAP 20MG BY MOUTH EVERY DAY ACTIVE 24 Total Medications 98.3 F [36.8 C] (10/28/2024 13:17) 103 (10/28/2024:17) 16 (10/28/2024:17) 88/58 (10/28/2024:17) 10 (10/28/2024 13:17) 64.5 in [163.8 cm] (08/22/2024 11:02) 160 lb [72.57 kg] (08/22/2024 11:02) BMI: 27.1 Neuro: Alert and oriented times three, grossly nonfocal, nasolabial folds intact. Depression Monitoring (PHQ-9): PHQ-9 A PHQ-9 screen was performed. The score was 2. 1. Little interest or pleasure in doing things Not at all 2. Feeling down, depressed, or hopeless Not at all 3. Trouble falling or staying asleep, or sleeping too much Several days 4. Feeling tired or having little energy Several days 5. Poor appetite or overeating Not at all 6. Feeling bad about yourself or that you are a failure or have let yourself or your family down Not at all 7. Trouble concentrating on things, such as reading the newspaper or watching television Not at all 8. Moving or speaking so slowly that other people could have noticed. Or the opposite being so fidgety or restless that you have been moving around a lot more than usual Not at all 9. Thoughts that you would be better off or of hurting yourself in some way Not at all 10. If you checked off any problems, how DIFFICULT have these problems made it for you to do your work, take care of things at home or get along with other people? Not difficult at all 's PHQ-9 score did NOT IMPROVE from the most recent score RHS Screen: RHS Screen Environmental Check Upon inquiry, the individual reports [...] full rights to use it throughout the [place] system. PRIMARY SCREEN RESULT: The Primary Screen is NEGATIVE. The individual answered never to all forms of IPV above (i.e., answered never to all 5 items) The individual accepts education and/or resources: Other: EDUCATION: Other: RA, I sugget he use tylenol 2 or 3 times daily, use the vicodin that he has and call Rheumatology for further guidance. /thomas/ Toño Peter PA-C STAFF PHYSICIAN SECURITY SYSTEMS ENGINEER Signed: 10/28/2024 14:16 TOÑO PETER [facility]
--- OUTSIDE RECORDS SUMMARY | 2024-10-29 14:47 | XMS_ITS ---
Author Name [facility] Organization [facility] Address [address] [place] [id number] Care Team Providers Care Director Digital Communications Name Role Phone TOÑO CAI Primary [...] [place] MED[place] SUPPLEMEN MASTER PSUED O MEDEX [facility] Mar 19, 2004 [id number] [phone] HOLLIE SHEPHERD PATIENT [place] SUPPLEMEN MASTER MEDEX [facility] Mar 19, 2004 [id number] [phone] HOLLIE SHEPHERD [place] SUPPLEMEN MASTER MEDEX [facility] Mar 19, 2004 [id number] [phone] HOLLIE SHEPHERD PATIENT BCBS [facility] MEDICARE SUPPLEMEN MASTER PSUED O MEDEX [facility] Mar 19, 2004 [id number] HOLLIE SHEPHERD PATIENT MEDICARE (WNR) MEDICARE (M) PART B Mar 19, 2004 PART B [id number] [phone] HOLLIE SHEPHERD PATIENT MEDICARE (WNR) MEDICARE () PART B Mar 19, 2004 PART B [id number] [phone] HOLLIE SHEPHERD PATIENT MEDICARE (WNR) MEDICARE () PART B Mar 19, 2004 PART B [id number] [phone] HOLLIE SHEPHERD PATIENT MEDICARE (WNR) MEDICARE () PART A Feb 17, 2003 PART A [id number] CORAHOLLIE SILVA PATIENT MEDICARE (WNR) MEDICARE () PART B Feb 17, 2003 PART B [id number] [phone] HOLLIE SHEPHERD PATIENT MEDICARE (WNR) MEDICARE () PART A Feb 17, 2003 PART A [id number] [phone] [id number] HOLLIE SHEPHERD PATIENT MEDICARE (WNR) MEDICARE () PART A Feb 17, 2003 PART A [id number] [phone] HOLLIE SHEPHERD PATIENT MEDICARE (WNR) MEDICARE () PART A Feb 17, 2003 PART A [id number] HOLLIE SHEPHERD PATIENT MEDICARE (WNR) MEDICARE () PART A Feb 17, 2003 PART A [id number] [phone] HOLLIE SHEPHERD PATIENT MEDICARE (WNR) MEDICARE () PART B Feb 17, 2003 PART B [id number] [phone] HOLLIE SHEPHERD PATIENT Selected Encounter This section includes the information on record at NH for the Encounter. Date/Time Encounter Type Encounter Description Reason Provider Source Oct 03, 2024 02:00 PM OFFICE O/P EST MOD 30 MIN DERMATOLOGY ICD-10-CM L57.0 Actinic keratosis JAHAIRA PENA Mikey Encounter Template Text not used by [place] Assessments - Encounter Diagnoses This section includes the primary and secondary diagnoses documented for the Encounter. Date/Time Primary/Secondary Diagnosis Diagnosis Name Provider Source Oct 03, 2024 02:45 PM PRIMARY Actinic keratosis GUSTAVO PENA [facility] Oct 03, 2024 02:45 PM SECONDARY Other melanin hyperpigmentation JEANCA ITLIN [facility] [place] [facility] Oct 03, 2024 02:45 PM SECONDARY Other seborrheic dermatitis GUSTAVO PENA [facility] [place] [facility] Oct 03, 2024 02:45 PM SECONDARY Other seborrheic keratosis GUSTAVO PENA [facility] [place] [facility] Oct 03, 2024 02:45 PM SECONDARY Personal history of other malignant neoplasm of skin [facility] Plan of Treatment: Future Appointments (+ 6 months) and Future Tests (+/- 45 days) The Plan of Treatment section includes future care activities for the patient from all [facility]. This section includes future appointments and future orders which are active, pending or scheduled. Future Appointments This section includes appointments that were scheduled to occur 6 months from the date of the Encounter, up to a maximum of 20 appointments. The data comes from all [facility]. Appointment Date/Time Appointment Type Appointme nt Facility Name Oct 08, 2024 11:00 AM AMBULATORY - NONE [facility] [place] [facility] October 28, 2024 01:30 PM AMBULATORY - MEDICINE [facility] [place] [facility] November 15, 2024 11:00 AM AMBULATORY - MEDICINE [facility] [place] [facility] Nov 27, 2024 11:00 AM AMBULATORY - MEDICINE [facility] [place] [facility] Feb 25, 2025 10:00 AM AMBULATORY - PSYCHIATRY [place] [facility] [place] [facility] Apr 02, 2025 10:30 AM AMBULATORY - MEDICINE [facility] [place] [facility] Active, Pending, and Scheduled Orders This section includes a listing of several types of active, pending, and scheduled orders, including clinic medications orders, diagnostic test orders, procedure orders and consult orders; where the start date of the order is 45 days before the date of the Encounter or 45 days after the date of theEncounter. The data comes from all [facility]. Test Date/Time Test Type Test Details Facility Name Aug 22, 2024 12:00 AM Laboratory - Chemistry Order CALCIUM BLOOD (SST-SERUM) [facility] [place] [facility] Aug 22, 2024 12:00 AM Laboratory - Chemistry Order C-PEPTIDE (q) BLOOD (SST-SERUM) [facility] November 13, 2024 12:00 AM Laboratory - Chemistry Order HEMOGLOBIN A1C PANEL BLOOD (LAV-BLOOD) [facility] November 13, 2024 12:00 AM Laboratory - Chemistry Order BASIC METABOLIC PANEL (fasting) BLOOD (SST-SERUM) [facility] November 13, 2024 12:00 AM Laboratory - Chemistry Order LIVER FUNCTION BLOOD (SST-SERUM) [facility] November 13, 2024 12:00 AM Laboratory - Chemistry Order LIPID PANEL FASTING BLOOD (SST-SERUM) [facility] November 13, 2024 12:00 AM Laboratory - Chemistry Order CBC BLOOD (LAV-BLOOD) [facility] Social History: Smoking Status (Most current) and [...] took place. Date/Time Current Smoking Status Comment [facility] Jun 17, 2024 10:31 AM VA-TOBACCO USE FOR TAMMY CIGARETTES [facility] Tobacco Use History This section includes a history of the smoking, or tobacco-related health factors, that were collected on or before the date of the Encounter. The data comes from the [place] facility where the Encounter took place. Date/Time Smoking Status/Tobac co Use Comment Facility Jun 17, 2024 10:31 AM VA-TOBACCO USE FORMER CIGARETTES [facility] Jun 05, 2023 11:00 AM VA-TOBACCO FORMER USER [facility] Jun 05, 2023 11:00 AM VA-TOBACCO QUIT 15 YRS OR MORE [facility] Jun 06, 2022 01:00 PM VA-TOBACCO FORMER USER [facility] Jun 06, 2022 01:00 PM VA-TOBACCO QUIT 15 YRS OR MORE [facility] [place] [facility] Jun 30, 2021 02:37 PM VA-TOBACCO FORMER USER [facility] [place] [facility] Jun 30, 2021 02:37 PM VA-TOBACCO QUIT 5 TO < 15 YRS [facility] [place] [facility] May 22, 2020 03:30 PM VA-TOBACCO NEVER USED [facility] [place] [facility] May 08, 2018 02:03 PM VA-TOBACCO FORMER USER [facility] [place] [facility] May 08, 2018 02:03 PM VA-TOBACCO QUIT 15 YRS OR MORE [facility] [place] [facility] November 10, 2017 02:33 PM QUIT TOBACCO USE > 7 YEARS AGO [facility] [place] [facility] October 21, 2016 01:55 PM QUIT TOBACCO USE > 7 YEARS AGO [facility] [place] [facility] Sep 18, 2015 11:24 AM QUIT TOBACCO USE > 7 YEARS AGO stopped 50 years ago [facility] [place] [facility] May 19, 2005 08:01 AM HISTORY OF SMOKING [facility] [place] [facility] May 31, 2004 01:02 PM HISTORY OF SMOKING [facility] [place] [facility] Jun 04, 2003 07:57 AM HISTORY OF SMOKING [facility] [place] [facility] Jun 03, 2002 01:11 PM HISTORY OF SMOKING [facility] [place] [facility] Jun 03, 2002 01:11 PM QUIT TOBACCO USE > 7 YEARS AGO [facility] [place] [facility] Advance Directives: All historical and [...] DIRECTIVE JENNIFER QUIROS [facility] [place] [facility] Radiology Reports: +/- 30 days [...] AM BONE DENSITY AXIAL HIPS,PELVIS.SPINE: BEBO SHEPHERD [id number] -[phone] M Exm Date: OCT 08, 2024@10:13 Req Phys: ALLIE CUELLO Loc: [facility] ENDOCRINE MD 1 (Req'g Loc) Img Loc: [facility]/BUILDING 1 Service: Unknown [facility] [place] [address] (Case [id number] COMPLETE) BONE DENSITY AXIAL HIPS,PELVIS.SP(RAD Detailed) CPT:25622 Reason for Study: bone density below normral range Clinical History: Report Status: Verified Date Reported: OCT 08, 2024 Date Verified: OCT 08, 2024 Traveling Passenger Agent E-Sig:/ES/NAPOLEON ELLIOTT JR Report: Study: DEXA scan. Comparison: DEXA scan from June 29, 2022. Findings: Images obtained on a [employer] DEXA Machine. The lumbar spine is not [...] than 127 lbs., or smoking). 6. The [place] [employer] recommends pharmacologic therapy for [...] Foundation recommendations can be found in http://www.nof.org/hcp/pra mangoice/rybwgleq-zrb-wuqfmxg l-guidelines/ clinicians-guide. All treatment decisions require clinical [...] treatment guidelines: National Osteoporosis Foundation https://www.nof.org/dexter smith/diagnosis-information/b xth-awcoxyg-w amtesting/ International Osteoporosis Foundation https://www.iofbonehealth. org/ International Society for Clinical Densitometry https://www.iscd.org/patie nt-information/ FRAX(R) Fracture Risk Assessment Tool https://www.tobias.ac.u k/FRAX/ Primary Diagnostic Code: No immediate attention required Primary Interpreting Staff: NAPOLEON ELLIOTT JR, Radiologist (Traveling Passenger Agent) /NAPOLEON SCHMITZ JR [facility] [place] [facility] Encounter Notes: All associated encounter notes This section contains the clinical notes associated to the Encounter. Date/Time Encounter Note(s) Provider Source Oct 03, 2024 02:07 PM DERMATOLOGY OUTPATIENT NOTE: LOCAL TITLE: DERMATOLOGY CLINIC NOTE STANDARD TITLE: DERMATOLOGY OUTPATIENT NOTE DATE OF NOTE: OCT 03, 2024@14:07 ENTRY DATE: OCT 03, 2024@14:07:38 AUTHOR: VEGA PENA EXP COSIGNER: URGENCY: STATUS: COMPLETED OCT 03, 2024 [place] R Feb 86 PATIENT PHONE - Patient here for FOLLOW UP CHIEF COMPLAINT: h/o BCC, AKs HPI: Reviewed records from last Dermatology visit: 04/04/24 [place] reports a gritty lesion on R lateral neck. [place] denies any other new/changing/bleeding/non-he aling lesions. REVIEW OF SYSTEMS: Constitutional-neg Skin/Hair/Nails-see HPI DermHx: -BCC to nose s/p excision -AK, hypertrophic, central upper forehead, path proven 09/2023 but base inadequately represented and SCC cannot be entirely ruled out - monitoring clinically -AKs s/p LN2 Family Hx: Denies known h/o MM PastMedHx: Reviewed. 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 Started on Actemra 02/02/23, continues on prednisone 10mg PO daily with plan to taper down to 1mg daily and hydroxychloroquine 200mg when seen 04/2023. History of Sun Exposure/Sunburns: +blistering morales in youth Active Outpatient Medications (including Supplies): Active Outpatient Medications Status 1) AMLODIPINE [...] NEEDED Indication: FOR LOW BLOOD SUGAR 7) GLUCOSE SENSOR DEXCOM G7 USE 1 SENSOR DIRECTED EVERY 10 ACTIVE DAYS 8) HYDROCODONE 5MG/ACETAMINOPHEN 325MG TAB TAKE 1 TABLET BY ACTIVE MOUTH EVERY 6 HOURS NEEDED Indication: FOR PAIN 9) HYDROXYCHLOROQUINE SULFATE 200MG TAB TAKE ONE TABLET BY ACTIVE MOUTH ONCE DAILY MONDAY-MONDAY AND THEN TAKE 1 TABLET TWICE DAILY ON MONDAY AND MONDAY. DO NOT TAKE WITH CITALOPRAM 10) INSULIN,ASPART,HUMAN 100 UNIT/ML INJ INJECT 80 UNITS ACTIVE SUBCUTANEOUSLY EVERY DAY FOR USE WITH CONTINUOUS INSULIN INFUSION DEVICE Indication: FOR DIABETES 11) KETODIASTIX GLUCOSE KETONE TEST STRIP USE 1 STRIP TO TEST ACTIVE BLOOD SUGARS ONE TIME NEEDED Indication: DIABETES 12) LEFLUNOMIDE 20MG TAB TAKE ONE TABLET BY MOUTH ONCE DAILY ACTIVE 13) LOSARTAN 100MG TAB TAKE ONE TABLET BY MOUTH ONCE DAILY FOR ACTIVE BLOOD PRESSURE/HEART Indication: FOR HIGH BLOOD PRESSURE 14) MULTIVIT/OPHTH AREDS2/LUTE/ZEAX CAP/TAB TAKE 1 CAPSULE [...] OR OTHER FLUID) Indication: FOR CONSTIPATION 20) RESERVOIR,T:SLIM X2 W/T:LOCK,3ML USE 1 RESERVOIR DIRECTED ACTIVE EVERY THIRD DAY 21) SET,INFUSION VARISOFT TANDEM #[id number] 1 INFUSION SET ACTIVE DIRECTED 22) SET,INFUSION VARISOFT TANDEM #[id number] 1 SET (17MM 43'') ACTIVE EVERY THIRD DAY 23) SYRINGE 2.5-3ML/NDL 21G 1IN USE 1 SYRINGE EVERY THIRD DAY ACTIVE 24) TAMSULOSIN HCL 0.4MG CAP TAKE TWO CAPSULES BY MOUTH AT ACTIVE BEDTIME Active Non-VA Medications Status 1) Non-VA ACETAMINOPHEN TAB BY MOUTH ONCE DAILY NEEDED ACTIVE 2) Non-VA ASPIRIN 81MG EC TAB 81MG BY MOUTH ONCE DAILY ACTIVE 3) Non-VA CHOLECALCIF 50MCG (D3-2,000UNIT) TAB 50MCG BY MOUTH ACTIVE ONCE DAILY 4) Non-VA FUROSEMIDE 20MG TAB 20MG BY MOUTH ONCE DAILY ACTIVE 5) Non-VA OMEPRAZOLE 20MG EC CAP 20MG BY MOUTH EVERY DAY ACTIVE 29 Total Medications PHYSICAL EXAM: [place] Skintype II General-AxOx3, NAD, pleasant, breathing unlabored, speech clear Limited Cutaneous examination, as permitted by the patient, including scalp, face, eyes, ears, neck, hands, fingers, lower legs Pertinent findings per below: -surg scar distal nasal bridge -Scattered light perez and brown jagged macules in sun distributed areas. -Multiple scattered stuck on waxy pink, perez and brown papules and plaques -mild erythema and trace white scaling noted to bilateral nasolabial folds, and jensen -thin erythematous gritty papules noted to R lateral neck and upper central forehead Diagnosis/Plan: #Actinic Keratosis: - educated on relationship to squamous cell carcinoma. -Treatment options discussed. -Liquid nitrogen cryotherapy performed as a destructive method. -Verbal consent given. -Liquid nitrogen (2 cycles x 5-8sec) x #2 lesions performed. -Side effects including but not limited to redness, crusting, swelling, blistering, hypopigmentation and scarring discussed. -Photoprotection discussed. #Personal History of Non-Melanotic Skin Cancer: -No evidence of recurrence at surgical site -Full Body Skin Exam advised at least yearly -Photoprotection discussed -Patient instructed to follow up in clinic for any concerning lesions or changes #Seborrheic Keratoses: -The [place] was educated regarding the benign nature, but [...] ketoconazole shampoo and cream as prescribed RTC 1 yr, sooner PRN * [place] educated to RTC ivanna if any new, changing, symptomatic lesions. * Education on sun protection and avoidance strategies was provided. * Differential diagnosis, prescription options and risks/benefits were discussed with the patient, who consented to treatment plan. * [place] consented to photography for documentation if indicated. [...] Remote Allergy/ADR Data available for this patient [facility] METFORMIN [facility] PENICILLIN [facility] ZOSYN Med Recon NoGlossary [...] the patient into personal health records (i.e. [employer]) are NOT included in this list. Non-VA medications documented outside this NH, remote inpatient orders (regardless of status) and remote clinic medications are NOT included in this list. The patient and provider must always discuss medications the patient is taking, regardless of where the medication was dispensed or obtained. Non-VA ACETAMINOPHEN TAB TAKE BY MOUTH ONCE DAILY NEEDED OUTPT AMLODIPINE BESYLATE 2.5MG TAB (Status = Active) TAKE ONE TABLET BY MOUTH ONCE DAILY FOR BLOOD PRESSURE/HEART, DO NOT TAKE WITH GRAPEFRUIT JUICE Rx# [id number] Last Released: 08/13/24 Qty/Days Supply: 90 Rx Expiration Date: 08/10/25 Refills Remainin Indication: FOR HIGH BLOOD PRESSURE Non-VA ASPIRIN 81MG EC TAB TAKE ONE TABLET BY MOUTH ONCE DAILY OUTPT ATORVASTATIN CALCIUM 80MG TAB (Status = Active) TAKE ONE-HALF TABLET BY MOUTH ONCE DAILY Rx# [id number] Last Released: 06/25/24 Qty/Days Supply: 45/90 Rx Expiration Date: 02/27/25 Refills Remainin Indication: FOR HIGH CHOLESTEROL OUTPT CALCIUM 200MG (CA CITRATE-950MG) TAB (Status = Active) TAKE FOUR TABLETS BY MOUTH TWICE DAILY Rx# [id number] Last Released: 09/12/24 Qty/Days Supply: 800/90 Rx Expiration Date: 11/27/24 Refills Remainin Indication: FOR OSTEOPOROSIS Non-VA CHOLECALCIF 50MCG (D3-2,000UNIT) TAB TAKE ONE TABLET BY MOUTH ONCE DAILY Aug 11, 2020 Non-VA medication not recommended by VA provider. OUTPT CYCLOBENZAPRINE HCL 10MG TAB (Status = Active) TAKE ONE TABLET BY MOUTH TWICE DAILY NEEDED FOR MUSCLE SPASM Rx# [id number] Last Released: 08/13/24 Qty/Days Supply: 180/ Rx Expiration Date: 08/10/25 Refills Remainin Indication: FOR MUSCLE SPASM Non-VA FUROSEMIDE 20MG TAB TAKE ONE TABLET BY MOUTH ONCE DAILY OUTPT GABAPENTIN 600MG TAB (Status = Discontinued) TAKE ONE TABLET BY MOUTH THREE TIMES A DAY Rx# [id number] Last Released: 07/10/24 Qty/Days Supply: 270 Rx Expiration Date: 09/30/24 Refills Remainin OUTPT GABAPENTIN 600MG TAB (Status = Active) TAKE ONE TABLET BY MOUTH THREE TIMES A DAY Rx# [id number] Last Released: 09/11/24 Qty/Days Supply: 270 Rx Expiration Date: 11/14/24 Refills Remainin OUTPT GLUCOSE 4GM CHEW TAB (Status = Active) CHEW ONE TABLET BY MOUTH EVERY DAY NEEDED FOR LOW BLOOD SUGAR Rx# [id number] Last Released: 04/08/24 Qty/Days Supply: Rx Expiration Date: 04/03/25 Refills Remainin Indication: FOR LOW BLOOD SUGAR OUTPT HYDROCODONE 5MG/ACETAMINOPHEN 325MG TAB (Status = Active) TAKE 1 TABLET BY MOUTH EVERY 6 HOURS NEEDED Rx# [id number] Last Released: 10/02/24 Qty/Days Supply: 05/21 Rx Expiration Date: 11/01/24 Refills Remainin Indication: FOR PAIN OUTPT HYDROXYCHLOROQUINE SULFATE 200MG TAB (Status = Discontinued) TAKE TWO TABLETS BY MOUTH ONCE DAILY 5 DAYS A WEEK, AND 1 TABLET DAILY 2 DAYS A WEEK. Rx# [id number] Last Released: 05/23/24 Qty/Days Supply: Rx Expiration Date: 08/19/24 Refills Remainin OUTPT HYDROXYCHLOROQUINE SULFATE 200MG TAB (Status = Active) TAKE ONE TABLET BY MOUTH ONCE DAILY MONDAY-MONDAY AND THEN TAKE 1 TABLET TWICE DAILY ON MONDAY AND MONDAY. DO NOT TAKE WITH CITALOPRAM Rx# [id number] Last Released: 08/01/24 Qty/Days Supply: 108 Rx Expiration Date: 08/01/25 Refills Remainin OUTPT INSULIN,ASPART,HUMAN 100 UNIT/ML INJ (Status = ) INJECT 80 UNITS SUBCUTANEOUSLY EVERY DAY DIRECTED FOR USE WITH CONTINUOUS SUBCUTANEOUS INSULIN INFUSION DEVICE Rx# [id number] Last Released: 06/04/24 Qty/Days Supply: Rx Expiration Date: 09/01/24 Refills Remainin Indication: FOR DIABETES OUTPT INSULIN,ASPART,HUMAN 100 UNIT/ML INJ (Status = Active) INJECT 80 UNITS SUBCUTANEOUSLY EVERY DAY FOR USE WITH CONTINUOUS INSULIN INFUSION DEVICE Rx# [id number] Last Released: 09/10/24 Qty/Days Supply: Rx Expiration Date: 09/10/25 Refills Remainin Indication: FOR DIABETES OUTPT INSULIN,GLARGINE,HUMAN 100 UNIT/ML INJ (Status = ) INJECT 18 UNITS SUBCUTANEOUSLY ONCE DAILY NEEDED PUMP FAILURE Rx# [id number] Last Released: 09/02/24 Qty/Days Supply: 07/18 Rx Expiration Date: 09/21/24 Refills Remainin Indication: PUMP FAILURE OUTPT INSULIN,GLARGINE-YFGN 100UNIT/ML INJ (Status = Discontinued) INJECT 18 UNITS SUBCUTANEOUSLY ONCE DAILY NEEDED PUMP FAILURE Rx# [id number] Last Released: QtDays Supply: 07/18 Rx Expiration Date: 09/21/24 Refills Remainin Indication: PUMP FAILURE OUTPT KETOCONAZOLE 2% CREAM (Status = ) APPLY A THIN LAYER TOPICALLY TWICE DAILY RASH APPLY TO AFFECTED AREAS ON FACE TWICE DAILY FOR 4 WEEKS, THEN NEEDED Rx# [id number] Last Released: 07/21/23 Qty/Days Supply: 120 Rx Expiration Date: 07/13/24 Refills Remainin Indication: RASH OUTPT KETOCONAZOLE 2% SHAMPOO (Status = ) SHAMPOO SMALL AMOUNT TOPICALLY TWICE A WEEK NEEDED APPLY FOR 8 WEEKS, THEN NEEDED Rx# [id number] Last Released: 06/25/24 Qty/Days Supply: 30 Rx Expiration Date: 07/13/24 Refills Remainin Indication: SCALP RASH OUTPT LEFLUNOMIDE 20MG TAB (Status = ) TAKE ONE TABLET BY MOUTH ONCE DAILY Rx# [id number] Last Released: 05/02/24 Qty/Days Supply: Rx Expiration Date: 07/29/24 Refills Remainin OUTPT LEFLUNOMIDE 20MG TAB (Status = Active) TAKE ONE TABLET BY MOUTH ONCE DAILY Rx# [id number] Last Released: 08/01/24 Qty/Days Supply: Rx Expiration Date: 08/01/25 Refills Remainin OUTPT LOSARTAN 100MG TAB (Status = Active) TAKE ONE TABLET BY MOUTH ONCE DAILY FOR BLOOD PRESSURE/HEART Rx# [id number] Last Released: 08/13/24 Qty/Days Supply: 90 Rx Expiration Date: 08/10/25 Refills Remainin Indication: FOR HIGH BLOOD PRESSURE OUTPT MULTIVIT/OPHTH AREDS2/LUTE/ZEAX CAP/TAB (Status = Active) TAKE 1 CAPSULE BY MOUTH TWICE DAILY IN THE MORNING AND EVENING, WITH FOOD Rx# [id number] Last Released: 09/17/24 Qty/Days Supply: 120/60 Rx Expiration Date: 04/30/25 Refills Remainin Non-VA OMEPRAZOLE 20MG EC CAP TAKE 1 CAPSULE BY MOUTH EVERY DAY OUTPT PILOCARPINE HCL 5MG TAB (Status = Active) TAKE ONE TABLET BY MOUTH TWICE DAILY Rx# [id number] Last Released: 08/15/24 Qty/Days Supply: 180/90 Rx Expiration Date: 08/14/25 Refills Remainin OUTPT PREDNISONE 2.5MG TAB (Status = Active) TAKE THREE TABLETS BY MOUTH ONCE DAILY Rx# [id number] Last Released: 06/25/24 Qty/Days Supply: 9030 Rx Expiration Date: 04/30/25 Refills Remainin OUTPT PREDNISONE 20MG TAB (Status = Active) TAKE ONE TABLET BY MOUTH ONCE DAILY Rx# [id number] Last Released: 10/02/24 Qty/Days Supply: 5 Rx Expiration Date: 11/01/24 Refills Remainin Indication: LUMBAGO WITH SCIATICA OUTPT PREDNISONE 5MG TAB (Status = Active) TAKE ONE TABLET BY MOUTH ONCE DAILY Rx# [id number] Last Released: 08/01/24 Qty/Days Supply: 90 Rx Expiration Date: 08/01/25 Refills Remainin OUTPT PSYLLIUM ORAL PWD (Status = Active) TAKE 2 TEASPOONFULS BY MOUTH ONCE DAILY FOR CONSTIPATION (MIX WITH AT LEAST 8OZ. OF WATER OR OTHER FLUID) Rx# [id number] Last Released: 08/06/24 Qty/Days Supply: 390/90 Rx Expiration Date: 07/31/25 Refills Remainin Indication: FOR CONSTIPATION OUTPT TAMSULOSIN HCL 0.4MG CAP (Status = Active) TAKE TWO CAPSULES BY MOUTH AT BEDTIME Rx# [id number] Last Released: 10/02/24 Qty/Days Supply: Rx Expiration Date: 01/22/25 Refills Remainin OUTPT TOCILIZUMAB 162MG/0.9ML INJ SYR 0.9ML (Status = Discontinued) INJECT 162MG SUBCUTANEOUSLY EVERY 2 WEEKS Rx# [id number] Last Released: 07/09/24 Qty/Days Supply: 08/16 Rx Expiration Date: 04/12/25 Refills Remainin SUPPLIES OUTPT GLUCOSE SENSOR DEXCOM G7 (Status = Discontinued) USE 1 SENSOR DIRECTED EVERY 10 DAYS Rx# [id number] Last Released: 06/25/24 Qty/Days Supply: Rx Expiration Date: 06/18/25 Refills Remainin OUTPT GLUCOSE SENSOR DEXCOM G7 (Status = Active) USE 1 SENSOR DIRECTED EVERY 10 DAYS Rx# [id number] Last Released: 08/23/24 Qty/Days Supply: Rx Expiration Date: 08/23/25 Refills Remainin OUTPT INSULIN SYRINGE 1ML 30G 12MM (Status = Discontinued) USE ONE SYRINGE SUBCUTANEOUSLY EVERY THIRD DAY FOR INSULIN INJECTIONS Rx# [id number] Last Released: 08/16/24 Qty/Days Supply: Rx Expiration Date: 08/17/25 Refills Remainin OUTPT INSULIN SYRINGE 1ML 31G 8MM (Status = Discontinued) USE 1 SYRINGE EVERY THIRD DAY FOR INSULIN INJECTIONS Rx# [id number] Last Released: 07/16/24 Qty/Days Supply: Rx Expiration Date: 10/13/24 Refills Remainin OUTPT KETODIASTIX GLUCOSE KETONE TEST STRIP (Status = Active) USE 1 STRIP TO TEST BLOOD SUGARS ONE TIME NEEDED DIABETES Rx# [id number] Last Released: 08/26/24 Qty/Days Supply: Rx Expiration Date: 11/20/24 Refills Remainin Indication: DIABETES OUTPT RESERVOIR,T:SLIM X2 W/T:LOCK,3ML (Status = Active) USE 1 RESERVOIR DIRECTED EVERY THIRD DAY Rx# [id number] Last Released: 07/16/24 Qty/Days Supply: Rx Expiration Date: 07/17/25 Refills Remainin OUTPT SET,INFUSION VARISOFT TANDEM #[id number] (Status = Active) 1 INFUSION SET DIRECTED Rx# [id number] Last Released: 08/14/24 Qty/Days Supply: Rx Expiration Date: 08/09/25 Refills Remainin OUTPT SET,INFUSION VARISOFT TANDEM #[id number] (Status = Active) 1 SET (17MM 43'') EVERY THIRD DAY Rx# [id number] Last Released: 07/16/24 Qty/Days Supply: Rx Expiration Date: 07/17/25 Refills Remainin OUTPT SYRINGE 2.5-3ML/NDL 21G 1IN (Status = Active) USE 1 SYRINGE EVERY THIRD DAY Rx# [id number] Last Released: Qty/Days Supply: Rx Expiration Date: 07/18/25 Refills Remainin /es/ VEGA PENA DNP, DEAL ARCHITECT-C NURSE PRACTITIONER Signed: 10/03/2024 14:45 VEGA PENA [facility]
--- OUTSIDE RECORDS SUMMARY | 2024-10-29 14:47 | XMS_ITS | Encounter Summary ---
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 Name Role Phone TOÑO CAI Primary Care [...] Relationship to Policy Wen LUKE BCBS [place] MEDICARE SUPPLEMEN MASTER PSUED O MEDEX [facility] Mar 19, 2004 [id number] [phone] HOLLIE SHEPHERD PATIENT [place]BS [place] MED[place] SUPPLEMEN MASTER MEDEX [facility] E Mar 19, 2004 [id number] [phone] HOLLIE SHEPHERD PATIENT [place] SUPPLEMEN MASTER MEDEX [facility] E Mar 19, 2004 [id number] [phone] HOLLIE SHEPHERD PATIENT [facility] MED[facility] SUPPLEMEN MASTER PSUED O MEDEX [facility]ONZ E Mar 19, 2004 [id number] HOLLIE SHEPHERD PATIENT MEDICARE (WNR) MEDICARE (M) PART B Mar 19, 2004 PART B [id number] HOLLIE SHEPHERD PATIENT MEDICARE (WNR) MEDICARE (M) PART B Mar 19, 2004 PART B [id number] HOLLIE SHEPHERD PATIENT MEDICARE (WNR) MEDICARE (M) PART B Mar 19, 2004 PART B [id number] [phone] HOLLIE SHEPHERD PATIENT MEDICARE (WNR) MEDICARE (M) PART A Feb 17, 2003 PART A [id number] CORAHOLLIE SILVA ALD PATIENT MEDICARE (WNR) MEDICARE (M) PART B Feb 17, 2003 PART B [id number] HOLLIE SHEPHERD PATIENT MEDICARE (WNR) MEDICARE () PART A Feb 17, 2003 PART A [id number] [phone] HOLLIE SHEPHERD PATIENT MEDICARE (WNR) MEDICARE () PART A Feb 17, 2003 PART A [id number] [phone] HOLLIE SHEPHERD PATIENT MEDICARE (WNR) MEDICARE () PART A Feb 17, 2003 PART A [id number] HOLLIE SHEPHERD PATIENT MEDICARE (WNR) MEDICARE (M) PART A Feb 17, 2003 PART A [id number] HOLLIE SHEPHERD PATIENT MEDICARE (WNR) MEDICARE (M) PART B Feb 17, 2003 PART B [id number] HOLLIE SHEPHERD PATIENT Selected Encounter This section includes the information on record at [place] for the Encounter. Date/Time Encounter Type Encounter Description Reason Provider Source Sep 27, 2024 11:00 AM MTMS BY PHARM ISABELLA 15 [facility] - IND ICD-10-CM F33.9 Major depressive disorder, recurrent, unspecified MAGGY ESCOTO E Encounter Template Text not used by [place] Assessments - Encounter Diagnoses This section includes the primary and secondary diagnoses documented for the Encounter. Date/Time Primary/Secondary Diagnosis Diagnosis Name Provider Source Sep 27, 2024 11:34 AM PRIMARY Major depressive disorder, recurrent, unspecified MAGGY ESCOTO [place] [facility] Plan of Treatment: Future Appointments (+ 6 months) and Future Tests (+/- 45 days) The Plan of Treatment section includes future care activities for the patient [facility] [place] [facility] This section includes future appointments and future orders which are active, pending or scheduled. Future Appointments This section includes appointments that were scheduled to occur 6 months from the date of the Encounter, up to a maximum of 20 appointments. The data comes from all [facility]. Appointment Date/Time Appointment Type Appointme nt Facility Name Oct 02, 2024 01:00 PM [facility] Oct 03, 2024 02:00 PM [facility]IC[facility] [place] [facility] [place] [facility] Oct 08, 2024 11:00 AM AMBULATORY - NONE [facility] October 28, 2024 01:30 PM AMBULATORY - MEDICINE [place] [facility] [place] [facility] November 15, 2024 11:00 AM AMBULATORY - MEDICINE [place] [facility] [place] [facility] Nov 27, 2024 11:00 AM [facility]UL[facility] Feb 25, 2025 10:00 AM [facility] Active, Pending, and Scheduled Orders This section includes a listing of several types of active, pending, and scheduled orders, including clinic medications orders, diagnostic test orders, procedure orders and consult orders; where the start date of the order is 45 days before the date of the Encounter or 45 days after the date of theEncounter. The data comes from all [facility]. Test Date/Time Test Type Test Details Facility Name Aug 22, 2024 12:00 AM Laboratory - Chemi stry Order [facility] B[facility] Aug 22, 2024 12:00 AM Laboratory - Chemi stry Order C-PEPTIDE (q) BLOOD (SST-SERUM) [facility] Social History: Smoking Status (Most current) and Tobacco Use (All prior to encounter date) This section includes the most current, and the historical, smoking and tobacco- related health factors from the [place] facility where the Encounter took place. Current Smoking Status This section includes the most current smoking, or tobacco-related health factor, from the [place] facility where the Encounter took place. Date/Time Current Smoking Status Comment [facility] Jun 17, 2024 10:31 AM VA-TOBACCO USE FOR TAMMY CIGARETTES [place] [facility] [place] [facility] Tobacco Use History This section includes a history of the smoking, or tobacco-related health factors, that were collected on or before the date of the Encounter. The data comes from the [place] facility where the Encounter took place. Date/Time Smoking Status/Tobac co Use Comment Facility Jun 17, 2024 10:31 AM VA-TOBACCO USE FORMER CIGARETTES [facility] [place] [facility] Jun 05, 2023 11:00 AM VA-TOBACCO FORMER USER [facility] [place] [facility] Jun 05, 2023 11:00 AM VA-TOBACCO QUIT 15 YRS OR MORE [place] [facility] [place] [facility] Jun 06, 2022 01:00 PM VA-TOBACCO FORMER USER [facility] [place] [facility] Jun 06, 2022 01:00 PM VA-TOBACCO QUIT 15 YRS OR MORE [facility] [place] [facility] Jun 30, 2021 02:37 PM VA-TOBACCO FORMER USER [place] [facility] [place] [facility] Jun 30, 2021 02:37 PM VA-TOBACCO QUIT 5 TO < 15 YRS [place] [facility] [place] [facility] May 22, 2020 03:30 PM VA-TOBACCO NEVER USED [place] [facility] [place] [facility] May 08, 2018 02:03 PM VA-TOBACCO FORMER USER [place] [facility] [place] [facility] May 08, 2018 02:03 PM VA-TOBACCO QUIT 15 YRS OR MORE [facility] [place] [facility] November 10, 2017 02:33 PM QUIT TOBACCO USE > 7 YEARS AGO [facility] [place] [facility] October 21, 2016 01:55 PM QUIT TOBACCO USE > 7 YEARS AGO [facility] [place] [facility] Sep 18, 2015 11:24 AM QUIT TOBACCO USE > 7 YEARS AGO stopped 50 years ago [facility] [place] [facility] May 19, 2005 08:01 AM HISTORY OF SMOKING [facility] [place] [facility] May 31, 2004 01:02 PM HISTORY OF SMOKING [facility] [facility] Jun 04, 2003 07:57 AM HISTORY OF SMOKING [facility] Jun 03, 2002 01:11 PM HISTORY OF SMOKING [facility] Jun 03, 2002 01:11 PM QUIT TOBACCO USE > 7 YEARS AGO [facility] Advance Directives: All historical and current Section [...] 02, 2023 ADVANCE DIRECTIVE JENNIFER QUIROS [facility] Radiology Reports: +/- 30 days [...] AM BONE DENSITY AXIAL HIPS,PELVIS.SPINE: BEBO SHEPHERD [id number] -[id number] M Exm Date: OCT 08, 2024@10:13 Req Phys: ALLIE CUELLO Loc: [facility] ENDOCRINE MD 1 (Req'g Loc) Img Loc: [facility]/BUILDING 1 Service: Unknown [facility] [place] [address] (Case [id number] COMPLETE) BONE DENSITY AXIAL HIPS,PELVIS.SP(RAD Detailed) CPT:39252 Reason for Study: bone density below normral range Clinical History: Report Status: Verified Date Reported: OCT 08, 2024 Date Verified: OCT 08, 2024 Medical Pathologist E-Sig:/ES/NAPOLEON ELLIOTT JR Report: Study: DEXA scan. Comparison: DEXA scan from June 29, 2022. Findings: Images obtained on a [employer]ail DEXA Machine. The lumbar spine is not [...] than 127 lbs., or smoking). 6. The [place] [employer] recommends pharmacologic therapy for [...] Foundation recommendations can be found in http://www.nof.org/hcp/pra mangoice/powdvfpu-xdg-xlwnkep l-guidelines/ clinicians-guide. All treatment decisions require clinical [...] and treatment guidelines: National Osteoporosis Foundation https://www.nof.org/dexter ts/diagnosis-information/b kuj-aenooom-l amtesting/ International Osteoporosis Foundation https://www.iofbonehealth. org/ International Society for Clinical Densitometry https://www.iscd.org/patie nt-information/ FRAX(R) Fracture Risk Assessment Tool https://www.tobias.ac.u k/FRAX/ Primary Diagnostic Code: No immediate attention required Primary Interpreting Staff: NAPOLEON ELLIOTT JR, Radiologist (Medical Pathologist) /NAPOLEON SCHMITZ JR [facility] Encounter Notes: All associated encounter notes This section contains the clinical notes associated to the Encounter. Date/Time Encounter Note(s) Provider Source Sep 27, 2024 10:36 AM MENTAL HEALTH CONSULT: LOCAL TITLE: MENTAL HEALTH CONSULT NOTE STANDARD TITLE: MENTAL HEALTH CONSULT DATE OF NOTE: SEP 27, 2024@10:36 ENTRY DATE: SEP 27, 2024@10:36:48 AUTHOR: DAWOOD ESCOTO COSIGNER: URGENCY: STATUS: COMPLETED Program: Clinical Pharmacy Provider/Medication Management Speciality: Mental Health ATTENDED BY: [X] Patient [ ] Spouse/Caregiver LENGTH OF SESSION: 60minutes -=-=-=-=-=-=-=-=-=-=-=-=-=-= -=-=-=-=-=-==-=-=-=-=-=-=-=- =-=-=-=-=-=-=-=-=-=-=-=- Name: BEBO SHEPHERD : Feb ID: 84yo WHITE MALE -=-=-=-=-=-=-=-=-=-=-=-=-=-= -=-=-=-=-=-==-=-=-=-=-=-=-=- =-=-=-=-=-=-=Subjective- Treating Dx(s): MDD Interview Summary: pt w/out CC upon interview. noted that his [facility]; thus, care is being transferred to this internal communications writer. states I still have my moods...it's been about 4 years since she has passed. shared w/ this internal communications writer that his had in 2019 following diverticulitis. states I took good care of her when she was sick. expressed not experiencing such low lows that I have difficulty getting through the day. reports some sleep difficulty, mainly w/ w/ initiation d/t RLS and pain, alleviated w/ tylenol. additionally endorsed that there are times I can feel her presence, and it puts me at ease. 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 reports a large support system. [place] his as often as he can on [address]. medications hx reviewed. noted that his previous provider had tapered and stopped his citalopram in may 2024. denies any worsening of symptoms. no other medications on board to address MH. discussed plan to revisit one more time later this year for a check up, to which pt agreed. disclosed no other issues or concerns at this time. reports the following regarding medications: -N--Y- [ ][X] Adherence/Compliance [X][ ] Adverse Drug Reactions [X][ ] New OTC/Herbal/Supplement(s) SUBSTANCE USE ASSESSMENT [ ] Denies All [ ] Nicotine [ ] Caffeine [] Alcohol - I've had 3 whole beers in my whole life [ ] Cannabis -=-=-=-=-=-=-=-=-=-=-=-=-=-= -=-=-=-=-=-==-=-=-=-=-=-=-=- =-=-=-=-=-=-=-Objective- Mental Status Exam Appearance: [X] Unremarkable [X] Appropriate to season [ ] Neatly groomed [ ] Somewhat disheveled [ ] Other: Behavior Mood/Affect: [X] Appropriate [ ] Irritable [X] Normal [ ] Euphoric [ ] Pleasant [ ] Provocative [ ] Bright [ ] Depressed [ ] Anxious [ ] Frustrated [ ] Anxious [ ] Frustrated [ ] Maintained good eye contact [ ] Restricted [ ] Flat [ ] Other: [ ] Subdued [ ] Unremarkable [ ] Responsive & Congruent w/mood Energy: [ ] Other: [X] Normal [ ] Excessive [ ] Lethargic [ ] Variable Sleep: [ ] Other: [ ] Normal [ ] Early awakening [X] Sleep onset insomnia -N--Y- Orientation to: [ ] Frequent disruption [ ][X] Person [ ][X] Place Speech: [ ][X] Time [X] Normal [ ] Rapid [ ] Loud [ ] Flat [ ] Slow [ ] Soft Stream of thought: [ ] Other: [X] Normal [ ] Confused [ ] Tangential [ ] Derailed Insight/Judgment: [ ] Vague [ ] Repetitive [X] Normal [ ] Impaired [ ] No evidence of thought disorder [ ] No overt psychosis Other cognitive problems: [ ] Denies Flashbacks [X] Cognition intact [ ] Denies AH/VH [X] Logical and Linear [ ] Obsessions [ ] Paranoid/Delusions [X] Memory sufficient for interview [ ] Hallucinations: [ ] None [ ] Visuospatial [ ] Flashbacks: [ ] Attention [ ] Judgment [ ] Other: [ ] Abstraction Active problems - Computerized Problem List is the source for the followin. Acute mesenteric ischaemia 2. Elevated PSA 3. Aortic Valve Disorder (SCT 3161645) 4. Cerebrovascular disease 5. Chronic recurrent major depressive disorder 6. Insulin pump present 7. Hypertension 8. Family history of cancer of colon 9. Testicular hypofunction 10. Osteoporosis 11. Major depressive disorder 12. RA - Rheumatoid arthritis 13. History of colonic polyp 14. Diverticular disease of colon 15. Adjustment disorder 16. Hemorrhoids 17. Polymyalgia Rheumatica 18. Microscopic Hematuria 19. Rosacea 20. Hypertension (SNOMED CT 84938097) 21. Spinal Stenosis * 22. Hyperlipidemia (SNOMED CT 94494599) 23. Osteoarthritis * 24. Lower Back Pain * 25. Vertigo 26. Diabetes mellitus type 2 (SNOMED CT 44086336) 27. Gastroesophageal Reflux Disorder ALLERGIES: PENICILLIN, ZOSYN, METFORMIN Active Outpatient Medications (including Supplies): Active Outpatient [...] SENSOR DIRECTED EVERY 10 ACTIVE DAYS 8) HYDROXYCHLOROQUINE SULFATE 200MG TAB TAKE ONE [...] PRESSURE/HEART Indication: FOR HIGH BLOOD PRESSURE 13) MULTIVIT/OPHTH AREDS2/LUTE/ZEAX CAP/TAB TAKE 1 CAPSULE BY ACTIVE MOUTH TWICE DAILY IN THE MORNING AND EVENING, WITH FOOD 14) PILOCARPINE HCL 5MG TAB TAKE ONE TABLET BY MOUTH TWICE DAILY ACTIVE 15) PREDNISONE 2.5MG TAB TAKE THREE TABLETS BY MOUTH ONCE DAILY ACTIVE 16) PREDNISONE 5MG TAB TAKE ONE TABLET BY MOUTH ONCE DAILY ACTIVE 17) PSYLLIUM ORAL PWD TAKE 2 TEASPOONFULS BY MOUTH ONCE DAILY ACTIVE (MIX WITH AT LEAST 8OZ. OF WATER OR OTHER FLUID) Indication: FOR CONSTIPATION 18) RESERVOIR,T:SLIM X2 W/T:LOCK,3ML USE 1 RESERVOIR DIRECTED ACTIVE EVERY THIRD DAY 19) SET,INFUSION VARISOFT TANDEM #[id number] 1 INFUSION SET ACTIVE DIRECTED 20) SET,INFUSION VARISOFT TANDEM #[id number] 1 SET (17MM 43'') ACTIVE EVERY THIRD DAY 21) SYRINGE 2.5-3ML/NDL 21G 1IN USE 1 SYRINGE EVERY THIRD DAY ACTIVE 22) TAMSULOSIN HCL 0.4MG CAP TAKE TWO CAPSULES BY MOUTH AT ACTIVE (S) BEDTIME Active Non-VA Medications Status 1) Non-VA ACETAMINOPHEN TAB BY MOUTH ONCE DAILY NEEDED ACTIVE 2) Non-VA AMLODIPINE BESYLATE 2.5MG TAB 2.5MG BY MOUTH ONCE ACTIVE DAILY 3) Non-VA ASPIRIN 81MG EC TAB 81MG BY MOUTH ONCE DAILY ACTIVE 4) Non-VA CHOLECALCIF 50MCG (D3-2,000UNIT) TAB 50MCG BY MOUTH ACTIVE ONCE DAILY 5) Non-VA FUROSEMIDE 20MG TAB 20MG BY MOUTH ONCE DAILY ACTIVE 6) Non-VA OMEPRAZOLE 20MG EC CAP 20MG BY MOUTH EVERY DAY ACTIVE 28 Total Medications Past psychiatric medications include the following: [X] Per CPR[facility]: - citalopram ([id number]) [ ] Per Patient: Vitals: Ht: 64.5 in [163.8 cm] (08/22/2024 11:02) Wt: 160 lb [72.57 kg] (08/22/2024 11:02) BMI: 27.1 BP: 107/64 (08/22/2024 11:02) HR: 75 (08/22/2024 11:02) Labs: CHEM 7 TREND LAB CUMULATIVE SELECTED Collection DT Spec GLUCOSE BUN CREATIN Sodium K+/Pot CL CO2 08/07/2024 07:58 SERUM 150 H 18 0.75 143 3.4 L 106 26 08/07/2024 07:58 SERUM 149 H 19 0.73 141 3.4 L 106 26 06/04/2024 10:27 SERUM 187 H 19 0.97 140 3.8 103 25 05/08/2024 11:24 SERUM 216 H 19 0.84 142 3.5 107 25 10/10/2023 15:41 SERUM 172 H 22 1.26 137 4.0 101 26 LIVER PANEL TREND Collection DT Spec AST ALT T BILI ALK SARWAT T. PROT ALBUMIN 08/07/2024 07:58 SERUM 25 27 0.7 82 5.5 L 3.5 06/04/2024 10:27 SERUM 20 19 1.3 H 78 5.5 L 3.7 05/08/2024 11:24 SERUM 20 24 1.1 71 5.5 L 3.6 10/10/2023 15:42 SERUM 29 29 1.3 H 89 6.0 4.2 08/03/2023 08:04 SERUM 23 36 0.8 80 5.6 L 4.0 CBC TREND Collection DT Spec WBC RBC HGB HCT MCV MCH PLT 08/07/2024 07:58 BLOOD 3.96 L 4.18 L 12.7 L 38.5 L 92.1 30.4 121 L 06/17/2024 12:15 BLOOD 4.91 4.38 13.2 39.7 90.6 30.1 112 L 05/08/2024 11:24 BLOOD 4.08 L 4.53 13.1 39.9 88.1 28.9 130 L 10/10/2023 15:41 BLOOD 5.42 4.87 12.5 L 39.4 80.9 L 25.7 L 123 L 08/03/2023 08:05 BLOOD 4.75 4.81 13.6 42.4 88.1 28.3 150 LIPID PANEL TREND Collection DT Spec CHOL HDL CHO/HDL LDL-c TRIG 06/04/2024 10:27 SERUM 151 49 3.1 73 146 05/08/2024 11:24 SERUM 142 42 3.4 64 179 H 10/10/2023 15:41 SERUM 96 32 L 3.0 44 101 08/03/2023 08:05 SERUM 107 43 2.5 50 70 03/24/2023 12:17 SERUM 154 47 3.3 80 137 HEMOGLOBIN A1C TREND Collection DT Spec HGBA1c 08/07/2024 07:58 BLOOD 5.9 H 06/04/2024 10:27 BLOOD 6.5 H 10/10/2023 15:41 BLOOD 6.7 H 08/03/2023 08:04 BLOOD 6.0 H 03/24/2023 12:17 BLOOD 5.9 H EKG: n/a Estimated CrCl (based on IBW): ~60mL/min -=-=-=-=-=-=-=-=-=-=-=-=-=-= -=-=-=-=-=-==-=-=-=-=-=-=-=- =-=-=-=-=-=-=-=-=-=-=-=- ASSESSMENT The following review of all active psychotropic and LEAD PYTHON DEVELOPER-active agents is to ensure pharmacotherapy is evaluated for safety and efficacy as they relate to behaviorial and physiological changes and outcomes Pt is stable on the following regimen and requires no changes at this time. MDD - previously on citalopram, initiated d/t depressive episode following his passing away; recently tapered off slowly and stopped. pt otherwise doing well currently w/out medication. will continue to monitor. should pt continue to do well, will d/c from this service. PLAN 1. Pharmacotherapy [X] No changes [ ] Discontinue: [ ] Initiate: [ ] Change the followin. Labs/tests: n/a 3. Consult(s) or Coordination of care: n/a 4. Other: n/a Education was provided to the regarding the above medication(s) risks, benefits, and alternatives; adverse drug reactions; expectations; and instructions for use. Findings/Plan was discussed with the patient and/or caregiver(s) whom provided verbal acknowledgement that the findings/plan was understood. The following counseling was specifically provided: [ ] Lab tests reviewed with patient [X] Instruction for management/treatment and/or follow-up [X] Importance of compliance with chosen treatment options [X] Risk Factor Reduction [ ] Other: RTC Interval: n/a Next Apt: [id number] [place] was provided internal communications writer's contact information and instructed to contact internal communications writer as needed for any changes to scheduling or concerns otherwise. [place] is aware of actions to take if they feel unsafe, including calling the [place]'s Crisis Line (#[phone]); calling 911; or going to the nearest urgent care or emergency room. The is also aware of how to contact the clinic should the require additional services prior to the next appointment. Time spent on chart review, session, and documentation: 60minutes /es/ Dawood Escoto PharmD Clinical Pharmacist Practitioner Signed: 10/06/2024 17:36 DAWOOD ESCOTO [place] [facility]
--- OUTSIDE RECORDS SUMMARY | 2024-10-29 14:47 | XMS_ITS ---
Author Name [facility] [place] Organization [facility] [place] Address [address] [place] [address] Care Team Providers Care Women'S Garment Fitter Name Role Phone TOÑO CAI Primary Care [...] [place] MED[place] SUPPLEMEN MASTER PSUED O MEDEX [facility] E Mar 19, 2004 [id number] [phone] HOLLIE SHEPHERD PATIENT [place] MED[place] SUPPLEMEN MASTER MEDEX [place] E Mar 19, 2004 [id number] HOLLIE SHEPHERD PATIENT [place] SUPPLEMEN MASTER MEDEX [place] E Mar 19, 2004 [id number] [phone] HOLLIE SHEPHERD PATIENT BCBS [facility] MEDICARE SUPPLEMEN MASTER PSUED O MEDEX [place]Z E Mar 19, 2004 [id number] HOLLIE SHEPHERD PATIENT MEDICARE (WNR) MEDICARE (M) PART B Mar 19, 2004 PART B [id number] HOLLIE SHEPHERD PATIENT MEDICARE (WNR) MEDICARE (M) PART B Mar 19, 2004 PART B [id number] [phone] CORAHOLLIE SILVA ALD PATIENT MEDICARE (WNR) MEDICARE (M) PART B Mar 19, 2004 PART B [id number] [phone] CORAHOLLIE SILVA ALD PATIENT MEDICARE (WNR) MEDICARE () PART A Feb 17, 2003 PART A [id number] CORAHOLLIE SILVA ALD PATIENT MEDICARE (WNR) MEDICARE (M) PART B Feb 17, 2003 PART B [id number] CORAHOLLIE SILVA ALD PATIENT MEDICARE (WNR) MEDICARE () PART A Feb 17, 2003 PART A [id number] [phone] HOLLIE SHEPHERD PATIENT MEDICARE (WNR) MEDICARE () PART A Feb 17, 2003 PART A [id number] HOLLIE SHEPHERD PATIENT MEDICARE (WNR) MEDICARE () PART A Feb 17, 2003 PART A [id number] CORAHOLLIE SILVA PATIENT MEDICARE (WNR) MEDICARE (M) PART A Feb 17, 2003 PART A [id number] [phone] HOLLIE SHEPHERD PATIENT MEDICARE (WNR) MEDICARE (M) PART B Feb 17, 2003 PART B [id number] HOLLIE SHEPHERD PATIENT Selected Encounter This section includes the information on record at [place] for the Encounter. Date/Time Encounter Type Encounter Description Reason Provider Source Oct 02, 2024 01:00 PM OFFICE O/P EST MOD 30 MIN PRIMARY CARE/MEDICINE ICD-10-CM M54.42 Lumbago with sciatica, left side ABDIEL ERNST E Encounter Template Text not used by [place] Assessments - Encounter Diagnoses This section includes the primary and secondary diagnoses documented for the Encounter. Date/Time Primary/Secondary Diagnosis Diagnosis Name Provider Source Oct 02, 2024 12:29 PM PRIMARY Lumbago with sciatica, left side ABDIEL ERNST [place] [facility] [place] [facility] Plan of Treatment: Future Appointments (+ 6 months) and Future Tests (+/- 45 days) The Plan of Treatment section includes future care activities for the patient from all [place] [facility] This section includes future appointments and future orders which are active, pending or scheduled. Future Appointments This section includes appointments that were scheduled to occur 6 months from the date of the Encounter, up to a maximum of 20 appointments. The data comes from all [facility]. Appointment Date/Time Appointment Type Appointme nt Facility Name Oct 03, 2024 02:00 PM AMBULATORY - MEDICINE [place] [facility] [place] [facility] Oct 08, 2024 11:00 AM AMBULATORY - NONE [place] [facility] [place] [facility] October 28, 2024 01:30 PM AMBULATORY - MEDICINE [place] [facility] [place] [facility] November 15, 2024 11:00 AM AMBULATORY - MEDICINE [place] [facility] [place] [facility] Nov 27, 2024 11:00 AM AMBULATORY - MEDICINE [place] [facility] [place] [facility] Feb 25, 2025 10:00 AM AMBULATORY - PSYCHIATRY [place] [facility] [place] [facility] Apr 02, 2025 10:30 AM AMBULATORY - MEDICINE [place] [facility] [place] [facility] Active, Pending, and Scheduled Orders This section includes a listing of several types of active, pending, and scheduled orders, including clinic medications orders, diagnostic test orders, procedure orders and consult orders; where the start date of the order is 45 days before the date of the Encounter or 45 days after the date of theEncounter. The data comes from all [facility]. Test Date/Time Test Type Test Details Facility Name Aug 22, 2024 12:00 AM Laboratory - Chemistry Order CALCIUM BLOOD (SST-SERUM) [facility] [place] [facility] Aug 22, 2024 12:00 AM Laboratory - Chemistry Order C-PEPTIDE (q) BLOOD (SST-SERUM) [facility] November 13, 2024 12:00 AM Laboratory - Chemistry Order LIVER FUNCTION BLOOD (SST-SERUM) [facility] November 13, 2024 12:00 AM Laboratory - Chemistry Order HEMOGLOBIN A1C PANEL BLOOD (LAV-BLOOD) [facility] November 13, 2024 12:00 AM Laboratory - Chemistry Order BASIC METABOLIC PANEL (fasting) BLOOD (SST-SERUM) [facility] [place] [facility] November 13, 2024 12:00 AM Laboratory - Chemistry Order LIPID PANEL FASTING BLOOD (SST-SERUM) [facility] [place] [facility] November 13, 2024 12:00 AM Laboratory - Chemistry Order CBC BLOOD (LAV-BLOOD) [facility] Vital Signs: All taken on the encounter date This section contains inpatient and outpatient Vital Signs collected on the date of the Encounter. Date/Time Temperature Pulse Blood Pressure Respiratory Rate SP02 Pain Height Weight Body Mass Index Source Oct 02, 2024 11:03 AM 98 97 107/67 18 97 6 [place] [facility] [place] [facility] Social History: Smoking Status (Most [...] took place. Date/Time Current Smoking Status Comment [facility] Jun 17, 2024 10:31 AM VA-TOBACCO USE FOR TAMMY CIGARETTES [facility] Tobacco Use History This section includes a history of the smoking, or tobacco-related health factors, that were collected on or before the date of the Encounter. The data comes from the [place] facility where the Encounter took place. Date/Time Smoking Status/Tobac co Use Comment Facility Jun 17, 2024 10:31 AM VA-TOBACCO USE FORMER CIGARETTES [place] [facility] [place] [facility] Jun 05, 2023 11:00 AM VA-TOBACCO FORMER USER [place] [facility] [place] [facility] Jun 05, 2023 11:00 AM VA-TOBACCO QUIT 15 YRS OR MORE [place] [facility] [place] [facility] Jun 06, 2022 01:00 PM VA-TOBACCO FORMER USER [place] [facility] [place] [facility] Jun 06, 2022 01:00 PM VA-TOBACCO QUIT 15 YRS OR MORE [place] [facility] [place] [facility] Jun 30, 2021 02:37 PM VA-TOBACCO FORMER USER [place] [facility] [place] [facility] Jun 30, 2021 02:37 PM VA-TOBACCO QUIT 5 TO < 15 YRS [place] [facility] [place] [facility] May 22, 2020 03:30 PM VA-TOBACCO NEVER USED [place] [facility] [place] [facility] May 08, 2018 02:03 PM VA-TOBACCO FORMER USER [place] [facility] [place] [facility] May 08, 2018 02:03 PM VA-TOBACCO QUIT 15 YRS OR MORE [place] [facility] [place] [facility] November 10, 2017 02:33 PM QUIT TOBACCO USE > 7 YEARS AGO [place] [facility] [place] [facility] October 21, 2016 01:55 PM QUIT TOBACCO USE > 7 YEARS AGO [place] [facility] [place] [facility] Sep 18, 2015 11:24 AM QUIT TOBACCO USE > 7 YEARS AGO stopped 50 years ago [place] [facility] [place] [facility] May 19, 2005 08:01 AM HISTORY OF SMOKING [place] [facility] [place] [facility] May 31, 2004 01:02 PM HISTORY OF SMOKING [place] [facility] [place] [facility] Jun 04, 2003 07:57 AM HISTORY OF SMOKING [place] [facility] [place] [facility] Jun 03, 2002 01:11 PM HISTORY OF SMOKING [facility] Jun 03, 2002 01:11 PM QUIT TOBACCO USE > 7 YEARS AGO [facility] Advance Directives: All historical and current Section [...] DIRECTIVE JENNIFER QUIROS [place] [facility] Radiology Reports: +/- 30 days of [...] comes from all [place] treatment facilities. Date/Time Radiology Report Provider Source Oct 08, 2024 10:13 AM BONE DENSITY AXIAL HIPS,PELVIS.SPINE: BEBO SHEPHERD [phone] M Exm Date: OCT 08, 2024@10:13 Req Phys: ALLIE CUELLO Loc: [facility] ENDOCRINE MD 1 (Req'g Loc) Img Loc: [facility]/BUILDING 1 Service: Unknown [place] [facility] [place] [address] (Case 112 COMPLETE) BONE DENSITY AXIAL HIPS,PELVIS.SP(RAD Detailed) CPT:55488 Reason for Study: bone density below normral range Clinical History: Report Status: Verified Date Reported: OCT 08, 2024 Date Verified: OCT 08, 2024 Oil Seal Assembler E-Sig:/ES/NAPOLEON ELLIOTT JR Report: Study: DEXA scan. Comparison: DEXA scan from June 29, 2022. Findings: Images obtained on a Notorious DEXA Machine. The lumbar spine is not [...] than 127 lbs., or smoking). 6. The [place] recommends pharmacologic therapy for [...] Foundation recommendations can be found in http://www.nof.org/hcp/pra mangoice/gqukvovf-bmo-zvjmebu l-guidelines/ clinicians-guide. All treatment decisions require clinical [...] treatment guidelines: National Osteoporosis Foundation https://www.nof.org/patien ts/diagnosis-information/b mod-itzehrp-r amtesting/ International Osteoporosis Foundation https://www.iofbonehealth. org/ International Society for Clinical Densitometry https://www.iscd.org/patie nt-information/ FRAX(R) Fracture Risk Assessment Tool https://www.tobias.ac.u k/FRAX/ Primary Diagnostic Code: No immediate attention required Primary Interpreting Staff: NAPOLEON ELLIOTT JR, Radiologist (Oil Seal Assembler) /NAPOLEON SCHMITZ JR [facility] Encounter Notes: All associated encounter notes This section contains the clinical notes associated to the Encounter. Date/Time Encounter Note(s) Provider Source Oct 02, 2024 11:33 AM ACCOUNTING OF DISCLOSURES NOTE: LOCAL TITLE: STATE PRESCRIPTION DRUG MONITORING PROGRAM STANDARD TITLE: ACCOUNTING OF DISCLOSURES NOTE DATE OF NOTE: OCT 02, 2024@11:33:26 ENTRY DATE: OCT 02, 2024@11:33:26 AUTHOR: ABDIEL ERNST EXP COSIGNER: URGENCY: STATUS: COMPLETED This PDMP query was submitted by Abdiel Ernst. The clinical justification for this PDMP query is to review controlled substances prescribed outside of the [place], and any additional information that may become available, as an important component of standard clinical care, and in accordance with [facility] policy. Patient information was shared with the PDMP [place]. No prescription(s) for controlled substances outside the [facility] were found in the last 90 days. /thomas/ ABDIEL ARREOLA MS,MERCEDESC PHYSICIAN ONLINE MARKETING SPECIALIST Signed: 10/02/2024 11:43 ABDIEL ERNST [facility] Oct 02, 2024 11:29 AM PHYSICIAN ONLINE MARKETING SPECIALIST NOTE: LOCAL TITLE: RUBY NOTE STANDARD TITLE: PHYSICIAN ONLINE MARKETING SPECIALIST NOTE DATE OF NOTE: OCT 02, 2024@11:29 ENTRY DATE: OCT 02, 2024@11:29:23 AUTHOR: ABDIEL ERNST EXP COSIGNER: URGENCY: STATUS: COMPLETED SICK CALL VISIT HPI: 84-year-old male with below noted past medical history presents today for months long left buttock pain radiating down to the ankle without relief from Tylenol. He states that he has used his Tylenol 650 mg tablets by taking 2 at bedtime without any improvement. The pain is keeping him up at night. Denies any recent injury. No changes in bladder or bowel habits. No weakness or numbness of the lower extremities or saddle region. states that he already is on a low-dose of prednisone for his RA. He has been prescribed oxycodone in the past which she still has some at home but his children do not want him to use. REVIEW OF SYSTEMS: A 12 point review of systems is negative except as noted in the HPI. 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 09/19/2011 TOÑO CAI Microscopic Hematuria 599.72 08/04/2010 VESTA DE LA CRUZ MD 695.3 07/30/2010 VESTA DE LA CRUZ MD Hypertension (SNOMED CT 73359715) I 04/26/2023 ALLIE CUELLO Spinal Stenosis * (ICD-9-CM 724.00) 02/05/2010 VESTA DE LA CRUZ MD Hyperlipidemia (SNOMED CT 42188488) 04/26/2023 ALLIE CUELLO Osteoarthritis * (ICD-9-CM 715.90) 07/02/2008 PAUL ACOSTA Lower Back Pain * (ICD-9-CM 724.2) 07/02/2008 PAUL ACOSTA Vertigo 780.4 11/28/2007 PAUL ACOSTA Diabetes mellitus type 2 (SNOMED CT 09/17/2022 ALLIE CUELLO Gastroesophageal Reflux Disorder 53 11/28/2007 PAUL ACOSTA Meds: Active Outpatient Medications (including Supplies): AMLODIPINE BESYLATE [...] CONTINUOUS INSULIN INFUSION DEVICE Indication: FOR DIABETES KETODIASTIX GLUCOSE KETONE TEST STRIP USE 1 STRIP TO TEST ACTIVE BLOOD SUGARS ONE TIME NEEDED Indication: DIABETES LEFLUNOMIDE 20MG TAB TAKE ONE TABLET [...] DIRECTED EVERY THIRD DAY SET,INFUSION VARISOFT TANDEM #[id number] 1 INFUSION SET ACTIVE DIRECTED SET,INFUSION VARISOFT TANDEM #[id number] 1 SET (17MM 43'') ACTIVE EVERY THIRD DAY SYRINGE 2.5-3ML/NDL 21G 1IN USE 1 SYRINGE EVERY THIRD DAY ACTIVE TAMSULOSIN HCL 0.4MG CAP TAKE TWO CAPSULES BY MOUTH AT ACTIVE BEDTIME Non-VA ACETAMINOPHEN TAB BY MOUTH ONCE DAILY NEEDED ACTIVE Non-VA ASPIRIN 81MG EC TAB 81MG BY MOUTH ONCE DAILY ACTIVE Non-VA CHOLECALCIF 50MCG (D3-2,000UNIT) TAB 50MCG BY MOUTH ACTIVE ONCE DAILY Non-VA FUROSEMIDE 20MG TAB 20MG BY MOUTH ONCE DAILY ACTIVE Non-VA OMEPRAZOLE 20MG EC CAP 20MG BY MOUTH EVERY DAY ACTIVE 27 Total Medications Allergies: PENICILLIN, ZOSYN, METFORMIN Date Vital Measurement Qualifiers 10/02/2024 11:03 Temp F (C) 98 (36.7) Pulse 97 Respir 18 BP 107/67 Pain 6 POx (L/Min)(%) 97 At Rest FOCUSED EXAMINATION GEN: Well-developed, elderly male in no acute distress, antalgia with favoring of left HEENT: NCAT Vascular: Well-perfused, pulses 2+ bilaterally LS-Spine: NTTP throughout the SP/PSP Buttock: Left piriformis/ischial bursal region with tenderness upon palpation and replication of radiating pain to the lower extremity left side only. No tenderness of the hip or pelvis. Neuro: Nonfocal MDM: No clinical evidence of acute neurovascular, neurosensory or gross functional deficit. MassPAT verified. [place] is agreeable to using Vicodin 5/325 in conjunction with one of the 650 mg of his qvix-xkv-ujidxcn Tylenol. He is instructed not to take 2 of the 650 mg tablets at the same time. [place] is able to verbalize understanding. is on low-dose (5 mg) prednisone daily for his rheumatoid arthritis. He is in agreement to using 20 mg prednisone daily in addition to his usual dose for the next 5 days to help reduce inflammation around the area of pain. is instructed to return here if no improvement or worsening. Any changes to bladder or bowel control [place] needs to be seen at a higher level of care (emergency department). [place] is in agreement with plan of care and follow-up as discussed. RTC as needed. ASSESSMENT/PLAN Lumbago with Sciatica, left Side as above On this date of the encounter, I spent 30 minutes on some or all of the following: chart review, history, physical examination, treatment planning, education and counseling of the patient/family/pharmacist critical care, placing orders, communicating with other health care providers and documentation in the electronic health record. [place] able to verbalize understanding of plan of care and agrees. >> MEDICATIONS Reviewed and reconciled with Radha /thomas/ ABDIEL ARREOLA MS,PA-C PHYSICIAN ONLINE MARKETING SPECIALIST Signed: 10/02/2024 12:29 ABDIEL ERNST [place] [facility]
--- OUTSIDE RECORDS SUMMARY | 2024-10-29 14:48 | XMS_ITS | Encounter Summary ---
Author Organization [facility] Address [address] [place] [address] Care Team Providers Care Pharmacist Name Role Phone Jamilah Bueno Primary Care Provider [phone] Encounter Details Date Type Department Care Team (Late st Contact Info) Description 07/13/2024 Lab Requisition [facility] - Main Lab [address] [facility] [place] [address] Trina Brock MD [address] [address] Other fci (current) drug therapy Social History Tobacco Use [...] Description 10/30/2024 1:30 PM EDT Ancillary Procedure [facility] [address] [facility] [address] [place] [address] 11/04/2024 3:40 PM EDT Office Visit [facility] [address] [place] [address] Goldy Butler NP [address] [place] [address] Dr [address] [place] [address] 02/24/2025 11:10 AM EDT Office Visit [facility] [address] [place] [phone] Emmie Pickens, PATTI [address] [place] [address] Dr [address] [place] [address] documented as of this encounter Procedures Procedure Name Priority Date/Time Associated Diagnosis Comments CBC WITH AUTO DIFFERENTIAL Routine 07/13/2024 7:29 AM EST Other parts counterman (current) drug therapy CBC AND DIFFERENTIAL Routine 07/13/2024 7:29 AM EST Other fci (current) drug therapy BASIC METABOLIC PANEL Routine 07/13/2024 7:29 AM EST Other parts counterman (current) drug therapy documented in this encounter Results * (ABNORMAL) CBC auto differential (07/13/2024 7:29 AM EST) WBC 2.2(L) 4.8 - 10.8 K/mcL LAB HEMETOLOGY METHOD 07/13/2024 10:20 AM EST [facility] RBC 3.20(L) 4.50 - 5.50 M/[facility] LAB HEMETOLOGY METHOD 07/13/2024 10:20 AM EST [facility] Hemoglobin 10.0(L) 13.5 - 17.5 g/dL LAB HEMETOLOGY METHOD 07/13/2024 10:20 AM [facility] Hematocrit 30.1(L) 42.0 - 54.0 % LAB HEMETOLOGY METHOD 07/13/2024 10:20 AM [facility] MCV 93.8 79.0 - 98.0 FL LAB HEMETOLOGY METHOD 07/13/2024 10:20 AM [facility] MCH 31.2 27.0 - 32.0 pcg LAB HEMETOLOGY METHOD 07/13/2024 10:20 AM [facility] MCHC 33.2 32.0 - 37.0 g/dL LAB HEMETOLOGY METHOD 07/13/2024 10:20 AM [facility] RDW 14.6 11.0 - 15.0 % LAB HEMETOLOGY METHOD 07/13/2024 10:20 AM [facility] Platelets 85(L) 130 - 400 K/mcL LAB HEMETOLOGY METHOD 07/13/2024 10:20 AM [facility] Comment:reviewed by slide MPV 8.7 7.0 - 11.0 FL LAB HEMETOLOGY METHOD 07/13/2024 10:20 AM [facility] NRBC 0.0 <1.0 % LAB HEMETOLOGY METHOD 07/13/2024 10:20 AM [facility] NRBC Absolute 0.00 <0.10 K/mcL LAB HEMETOLOGY METHOD 07/13/2024 10:20 AM [facility] Neutrophils Relative 43.6 % LAB HEMETOLOGY METHOD 07/13/2024 10:20 AM [facility] Lymphocytes Relative 28.9 % LAB HEMETOLOGY METHOD 07/13/2024 10:20 AM [facility] Monocytes Relative 23.9 % LAB HEMETOLOGY METHOD 07/13/2024 10:20 AM [facility] Eosinophils Relative 1.8 % LAB HEMETOLOGY METHOD 07/13/2024 10:20 AM [facility] Basophils Relative 1.8 % LAB HEMETOLOGY METHOD 07/13/2024 10:20 AM EST [facility] Immature Granulocytes Relative 0.0 % LAB HEMETOLOGY METHOD 07/13/2024 10:20 AM EST [facility] Neutrophils Absolute 0.95(L) 1.50 - 7.00 K/[facility] LAB HEMETOLOGY METHOD 07/13/2024 10:20 AM [facility] Lymphocytes Absolute 0.63(L) 1.00 - 5.00 K/mcL LAB HEMETOLOGY METHOD 07/13/2024 10:20 AM [facility] Monocytes Absolute 0.52 0.20 - 1.00 K/[facility] LAB HEMETOLOGY METHOD 07/13/2024 10:20 AM [facility] Eosinophils Absolute 0.04 0.00 - 0.50 K/mcL LAB HEMETOLOGY METHOD 07/13/2024 10:20 AM [facility] Basophils Absolute 0.04 0.00 - 0.20 K/mcL LAB HEMETOLOGY METHOD 07/13/2024 10:20 AM [facility] Immature Granulocytes Absolute 0.00 0.00 - 0.03 K/mcL LAB HEMETOLOGY METHOD 07/13/2024 10:20 AM [facility] Blood Venous blood specimen / Unknown Venipuncture / Unknown 07/13/2024 7:29 AM EST 07/13/2024 9:03 AM EST us Trina Brock MD LAB BLOOD ORDERABLES Fin al Result [facility] [address] [place] [address], * (ABNORMAL) Basic metabolic panel (07/13/2024 7:29 AM EST) Sodium 145 133 - 145 mmol/L LAB CHEMISTRY METHOD 07/13/2024 9:54 AM EST [facility] Potassium 3.0(L) 3.5 - 5.5 mmol/L LAB CHEMISTRY METHOD 07/13/2024 9:54 AM [facility] Chloride 114(H) 96 - 110 mmol/L LAB CHEMISTRY METHOD 07/13/2024 9:54 AM [facility] CO2 25 21 - 32 mmol/L LAB CHEMISTRY METHOD 07/13/2024 9:54 AM [facility] Anion Gap 6 3 - 11 LAB CHEMISTRY METHOD 07/13/2024 9:54 AM [facility] Glucose 151(H) 70 - 100 mg/dL LAB CHEMISTRY METHOD 07/13/2024 9:54 AM [facility] BUN 5 5 - 25 mg/dL LAB CHEMISTRY METHOD 07/13/2024 9:54 AM [facility] Creatinine 0.49(L) 0.70 - 1.30 mg/dL LAB CHEMISTRY METHOD 07/13/2024 9:54 AM [facility] eGFR 100 >=60 mL/min/1. 73m2 LAB CHEMISTRY METHOD 07/13/2024 9:54 AM [facility] Comment:Calculation based on the??Chronic Kidney Disease Epidemiology Collaboration (CKD-EPI) equation refit??without adjustment for race. BUN/Creatinine Ratio 10.2 LAB CHEMISTRY METHOD 07/13/2024 9:54 AM [facility] Calcium 7.6(L) 8.5 - 10.5 mg/dL LAB CHEMISTRY METHOD 07/13/2024 9:54 AM [facility] Blood Venous blood specimen / Unknown Venipuncture / Unknown 07/13/2024 7:29 AM EST 07/13/2024 9:03 AM EST us Trina Brock MD LAB BLOOD ORDERABLES Fin al Result [facility] [address] [place] [address], documented in this encounter Visit Diagnoses Diagnosis Other parts counterman (current) drug therapy documented in this encounter Care Teams Pharmacist Relationship Specialty Start Date End Date Jamilah Bueno PA [address] [place] [address] Dr [address] [place] [phone] PCP - General 08/23/24 documented as of this encounter
--- OUTSIDE RECORDS SUMMARY | 2024-10-29 14:48 | XMS_ITS | Encounter Summary ---
Author Name [facility] of [facility] Affairs ([place]) Organization [facility] Address [address] [place] [address] Care Team Providers Care Music Publicist Name Role Phone TOÑO CAI Primary Care [...] [place] MED[place] SUPPLEMEN MASTER PSUED O MEDEX [facility] E Mar 19, 2004 [id number] HOLLIE SHEPHERD PATIENT [place]BS [place] MEDICARE SUPPLEMEN MASTER MEDEX [facility] E Mar 19, 2004 [id number] [phone] HOLLIE SHEPHERD PATIENT BCBS [place] MEDICARE SUPPLEMEN MASTER MEDEX [facility] E Mar 19, 2004 [id number] [phone] HOLLIE SHEPHERD PATIENT BCBS [facility] MEDICARE SUPPLEMEN MASTER PSUED O MEDEX [place] E Mar 19, 2004 [id number] HOLLIE SHEPHERD PATIENT MEDICARE (WNR) MEDICARE (M) PART B Mar 19, 2004 PART B [id number] HOLLIE SHEPHERD PATIENT MEDICARE (WNR) MEDICARE (M) PART B Mar 19, 2004 PART B [id number] HOLLIE SHEPHERD PATIENT MEDICARE (WNR) MEDICARE (M) PART B Mar 19, 2004 PART B [id number] CORAHOLLIE SILVA ALD PATIENT MEDICARE (WNR) MEDICARE () PART A Feb 17, 2003 PART A [id number] CORAHOLLIE SILVA ALD PATIENT MEDICARE (WNR) MEDICARE () PART B Feb 17, 2003 PART B [id number] HOLLIE SHEPHERD PATIENT MEDICARE (WNR) MEDICARE () PART A Feb 17, 2003 PART A [id number] [phone] [id number] HOLLIE SHEPHERD PATIENT MEDICARE (WNR) MEDICARE () PART A Feb 17, 2003 PART A [id number] HOLLIE SHEPHERD PATIENT MEDICARE (WNR) MEDICARE () PART A Feb 17, 2003 PART A [id number] CORAHOLLIE SILVA PATIENT MEDICARE (WNR) MEDICARE () PART A Feb 17, 2003 PART A [id number] HOLLIE SHEPHERD PATIENT MEDICARE (WNR) MEDICARE () PART B Feb 17, 2003 PART B [id number] HOLLIE SHEPHERD PATIENT Selected Encounter This section includes the information on record at [place] for the Encounter. Date/Time Encounter Type Encounter Description Reason Provider Source Oct 03, 2024 01:51 PM CONT GLUC MNTR ANALYSIS I&R ENDOCRINOLOGY ICD-10-CM E11.8 Type 2 diabetes mellitus with unspecified complications ALLIE CUELLO Mikey Encounter Template Text not used by [place] Assessments - Encounter Diagnoses This section includes the primary and secondary diagnoses documented for the Encounter. Date/Time Primary/Secondary Diagnosis Diagnosis Name Provider Source Oct 03, 2024 03:02 PM PRIMARY Type 2 diabetes mellitus with unspecified complications [facility] [place] [facility] Oct 03, 2024 03:02 PM SECONDARY Presence of insulin pump (external) (internal) [facility] Plan of Treatment: Future Appointments (+ 6 months) and Future Tests (+/- 45 days) The Plan of Treatment section includes future care activities for the patient [facility] [place] [facility]. This section includes future appointments and future orders which are active, pending or scheduled. Future Appointments This section includes appointments that were scheduled to occur 6 months from the date of the Encounter, up to a maximum of 20 appointments. The data comes from all [facility]. Appointment Date/Time Appointment Type Appointme nt Facility Name Oct 08, 2024 11:00 AM [facility] October 28, 2024 01:30 PM AMBULATORY - MEDICINE [facility] November 15, 2024 11:00 AM AMBULATORY - MEDICINE [facility] Nov 27, 2024 11:00 AM AMBULATORY - MEDICINE [place] C [facility] Feb 25, 2025 10:00 AM [facility] Apr 02, 2025 10:30 AM AM[facility]ULATORY - MEDICINE [place] [facility] Active, Pending, and Scheduled Orders This section includes a listing of several types of active, pending, and scheduled orders, including clinic medications orders, diagnostic test orders, procedure orders and consult orders; where the start date of the order is 45 days before the date of the Encounter or 45 days after the date of theEncounter. The data comes from all [facility]. Test Date/Time Test Type Test Details Facility Name Aug 22, 2024 12:00 AM Laboratory - Chemistry Order CALCIUM BLOOD (SST-SERUM) [facility] Aug 22, 2024 12:00 AM Laboratory - Chemistry Order C-PEPTIDE (q) BLOOD ([facility]UM) [facility] November 13, 2024 12:00 AM Laboratory - Chemistry Order LIVER FUNCTION BLOOD (SST[facility]SERUM) [facility] November 13, 2024 12:00 AM Laboratory - Chemistry Order HEMOGLOBIN A1C PANEL BLOOD (LAV-BLOOD) [facility] November 13, 2024 12:00 AM Laboratory - Chemistry Order BASIC METABOLIC PANEL (fasting) BLOOD (SST-SERUM) [facility] [place] [facility] November 13, 2024 12:00 AM Laboratory - Chemistry Order LIPID PANEL FASTING BLOOD (SST-SERUM) [facility] [place] [facility] November 13, 2024 12:00 AM Laboratory - Chemistry Order CBC BLOOD (LAV-BLOOD) [facility] [place] [facility] Social History: Smoking Status (Most [...] took place. Date/Time Current Smoking Status Comment [facility] Jun 17, 2024 10:31 AM VA-TOBACCO USE FOR TAMMY CIGARETTES [facility] Tobacco Use History This section includes a history of the smoking, or tobacco-related health factors, that were collected on or before the date of the Encounter. The data comes from the [place] facility where the Encounter took place. Date/Time Smoking Status/Tobac co Use Comment Facility Jun 17, 2024 10:31 AM VA-TOBACCO USE FORMER CIGARETTES [facility] [place] [facility] Jun 05, 2023 11:00 AM VA-TOBACCO FORMER USER [facility] [place] [facility] Jun 05, 2023 11:00 AM VA-TOBACCO QUIT 15 YRS OR MORE [facility] [place] [facility] Jun 06, 2022 01:00 PM VA-TOBACCO FORMER USER [facility] [place] [facility] Jun 06, 2022 01:00 PM VA-TOBACCO QUIT 15 YRS OR MORE [facility] [place] [facility] Jun 30, 2021 02:37 PM VA-TOBACCO FORMER USER [facility] [place] [facility] Jun 30, 2021 02:37 PM VA-TOBACCO QUIT 5 TO < 15 YRS [facility] [place] [facility] May 22, 2020 03:30 PM VA-TOBACCO NEVER USED [place] [facility] [place] [facility] May 08, 2018 02:03 PM VA-TOBACCO FORMER USER [facility] May 08, 2018 02:03 PM VA-TOBACCO QUIT 15 YRS OR MORE [facility] November 10, 2017 02:33 PM QUIT TOBACCO USE > 7 YEARS AGO [facility] October 21, 2016 01:55 PM QUIT TOBACCO USE > 7 YEARS AGO [facility] Sep 18, 2015 11:24 AM QUIT TOBACCO USE > 7 YEARS AGO stopped 50 years ago [facility] May 19, 2005 08:01 AM HISTORY OF SMOKING [facility] May 31, 2004 01:02 PM HISTORY OF SMOKING [facility] Jun 04, 2003 07:57 AM HISTORY OF SMOKING [facility] Jun 03, 2002 01:11 PM HISTORY OF SMOKING [facility] Jun 03, 2002 01:11 PM QUIT TOBACCO USE > 7 YEARS AGO [facility] Advance Directives: All historical and current Section Date Range: From patient's date of to the date document was created. This section includes ALL of a patient's completed or amended [place] Advance and Rescinded Directives. The entries below indicate that a directive exists for the patient, but an actual copy is not included with this document. The data comes from all [facility]. Date Advance Directives Provider Source Jun 02, 2023 ADVANCE DIRECTIVE JENNIFER QUIROS [facility] Radiology Reports: +/- 30 days of [...] comes from all [place] treatment facilities. Date/Time Radiology Report Provider Source Oct 08, 2024 10:13 AM BONE DENSITY AXIAL HIPS,PELVIS.SPINE: BEBO SHEPHERD Nisa [id number] -[id number] M Exm Date: OCT 08, 2024@10:13 Req Phys: [email or web address] Levin Loc: [facility] ENDOCRINE 1 (Req'g Loc) Img Loc: [facility] 1 Service: Unknown [place] [facility] [place] [address] (Case [id number] COMPLETE) BONE DENSITY AXIAL HIPS,PELVIS.SP(RAD Detailed) CPT:59548 Reason for Study: bone density below normral range Clinical History: Report Status: Verified Date Reported: OCT 08, 2024 Date Verified: OCT 08, 2024 Office Helper E-Sig:/ES/NAPOLEON ELLIOTT JR Report: Study: DEXA scan. Comparison: DEXA scan from June 29, 2022. Findings: Images obtained on a Figure 8 Surgical DEXA Machine. The lumbar spine is not [...] than 127 lbs., or smoking). 6. The [employer] recommends pharmacologic therapy for [...] Foundation recommendations can be found in http://www.nof.org/hcp/pra ctice/gurgvckh-jgi-uckdngw l-guidelines/ clinicians-guide. All treatment decisions require clinical [...] treatment guidelines: National Osteoporosis Foundation https://www.nof.org/dexter smith/diagnosis-information/b jyv-rhrmtdn-f amtesting/ International Osteoporosis Foundation https://www.iofbonehealth. org/ International Society for Clinical Densitometry https://www.iscd.org/jose angel nt-information/ FRAX(R) Fracture Risk Assessment Tool https://www.tobias.ac.u garrett/FRAX/ Primary Diagnostic Code: No immediate attention required Primary Interpreting Staff: NAPOLEON ELLIOTT JR, Radiologist (Office Helper) /NAPOLEON SCHMITZ JR [facility] Encounter Notes: All associated encounter notes This section contains the clinical notes associated to the Encounter. Date/Time Encounter Note(s) Provider Source Oct 03, 2024 01:51 PM PHYSICIAN NOTE: LOCAL TITLE: MD NOTE STANDARD TITLE: PHYSICIAN NOTE DATE OF NOTE: OCT 03, 2024@13:51 ENTRY DATE: OCT 03, 2024@13:52 AUTHOR: ALLIE CUELLO COSIGNER: URGENCY: STATUS: COMPLETED Dx: Diabetes mellitus type 2 insulin pump present Pt Name: Bebo Shepherd Pt : 1940 MR# [id number] Indication for device placement Date placed: September 20 2024 Date removed (date to which the CPT code is linked): October 03 2024 Name of device placed:Tandem T:slim X2 insulin pump with control IQ technology and dexcom G7 glucose sensors date of printout of data: Date of interpretation: October 03 2024 Analysis of data (72 hours or more of monitoring required): Average 166 TIR 64% SD 43 %CV 26% GMI 7.3% Very high 3.1% High 32% In range 64% Low 0.7% Very low 0.2% TDD 38.38 units/day Basal 25% Bolus 75% Average daily boluses 12, average daily carbs 124 Food boluses 79% Correction 2% Control IQ 19% Override 0% MN 160, 4AM 150, 8AM 170, noon 200, 4PM 170, 8PM 170 variability moderate Pt currently has his pump on sick profile. This is renamed as Hollie and he will continue this HOLLIE Basal MN to 4AM .275 u/h, then 0.325 u/h until 6AM, then .4 u/h Bolus ICR MN to 6AM 5.6, then 5.2 until 4:30 PM, then 6. Profile 1 Basal MN to 4AM 0.275 u/h, then 0.35 u/h until 6AM, then 1.075 u/h until 11:30 AM, then 1 u/h until 8PM, then 0.9 u/h Bolus MN to 4AM 5.6, then 5.2 until 8PM, then 6 ISF MN to 4:30 PM 46, then 42 Interpretation:Will increase basal MN to 4 AM to 0.325 u/h. He will decline late evening invitations to bolus via control IQ more than once. He agrees. CPT code for interpretation [id number] /thomas/ ALLIE CUELLO MD STAFF PHYSICIAN Signed: 10/03/2024 15:02 [facility]
--- OUTSIDE RECORDS SUMMARY | 2024-10-29 14:48 | XMS_ITS | Encounter Summary ---
Author Organization [facility] Address [address] [place] [address] Care Team Providers Care Soccer Player Name Role Phone Jamilah Bueno Primary Care Provider [phone] Encounter Details Date Type Department Care Team (Late st Contact Info) Description 07/18/2024 Lab Requisition [facility] - Main Lab [address] [facility] [facility] [place] [address] Trina Brock MD [address] [place] [id number] Benign prostatic hyperplasia without lower urinary tract symptoms; Atherosclerotic heart disease of [place] coronary artery without angina pectoris; Occlusion and stenosis of left vertebral artery; 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; Type 2 diabetes [...] Description 10/30/2024 1:30 PM EDT Ancillary Procedure [facility] Cardiology [facility] [address] [place] [phone] 11/04/2024 3:40 PM EDT Office Visit [facility] Cardiology [facility] [address] [place] [phone] Goldy Butler NP [address] [place] [address] [address] [place], [place] [phone] 02/24/2025 11:10 AM EDT Office Visit [facility] Cardiology [facility] [address] [place] [phone] Emmie Pickens NP [address] [place] [address] Dr [address] [place] [address] documented as of this encounter Procedures Procedure Name Priority Date/Time Associated Diagnosis Comments COMPLETE BLOOD COUNT Routine 07/18/2024 6:05 AM EST Benign prostatic hyperplasia without lower urinary tract symptoms 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 Type 2 diabetes mellitus without complications (CMS/HCC) BASIC METABOLIC PANEL Routine 07/18/2024 6:05 AM EST Benign prostatic hyperplasia without lower urinary tract symptoms 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 MCC (current) use of anticoagulants Type 2 diabetes mellitus without complications (CMS/HCC) documented in this encounter Results * (ABNORMAL) Basic metabolic panel (07/18/2024 6:05 AM EST) Sodium 141 133 - 145 mmol/L LAB CHEMISTRY METHOD 07/18/2024 8:06 AM EST [facility] Potassium 3.4(L) 3.5 - 5.5 mmol/L LAB CHEMISTRY METHOD 07/18/2024 8:06 AM EST [facility] Chloride 107 96 - 110 mmol/L LAB CHEMISTRY METHOD 07/18/2024 8:06 AM [facility] CO2 31 21 - 32 mmol/L LAB CHEMISTRY METHOD 07/18/2024 8:06 AM [facility] Anion Gap 3 3 - 11 LAB CHEMISTRY METHOD 07/18/2024 8:06 AM [facility] Glucose 143(H) 70 - 100 mg/dL LAB CHEMISTRY METHOD 07/18/2024 8:06 AM [facility] BUN 8 5 - 25 mg/dL LAB CHEMISTRY METHOD 07/18/2024 8:06 AM [facility] Creatinine 0.66(L) 0.70 - 1.30 mg/dL LAB CHEMISTRY METHOD 07/18/2024 8:06 AM [facility] eGFR 91 >=60 mL/min/1. 73m2 LAB CHEMISTRY METHOD 07/18/2024 8:06 AM [facility] Comment:Calculation based on the??Chronic Kidney Disease Epidemiology Collaboration (CKD-EPI) equation refit??without adjustment for race. BUN/Creatinine Ratio 12.1 LAB CHEMISTRY METHOD 07/18/2024 8:06 AM [facility] Calcium 8.3(L) 8.5 - 10.5 mg/dL LAB CHEMISTRY METHOD 07/18/2024 8:06 AM [facility] Blood Venous blood specimen / Unknown Venipuncture / Unknown 07/18/2024 6:05 AM EST 07/18/2024 6:37 AM EST us Tirna Brock MD LAB BLOOD ORDERABLES Fin al Result [facility] [address] [place] [address], * (ABNORMAL) Complete blood count (07/18/2024 6:05 AM EST) WBC 2.8(L) 4.8 - 10.8 K/mcL LAB HEMETOLOGY METHOD 07/18/2024 8:35 AM [facility] RBC 3.10(L) 4.50 - 5.50 M/mcL LAB HEMETOLOGY METHOD 07/18/2024 8:35 AM [facility] Hemoglobin 9.6(L) 13.5 - 17.5 g/dL LAB HEMETOLOGY METHOD 07/18/2024 8:35 AM [facility] Hematocrit 29.9(L) 42.0 - 54.0 % LAB HEMETOLOGY METHOD 07/18/2024 8:35 AM [facility] MCV 96.8 79.0 - 98.0 FL LAB HEMETOLOGY METHOD 07/18/2024 8:35 AM [facility] MCH 31.1 27.0 - 32.0 pcg LAB HEMETOLOGY METHOD 07/18/2024 8:35 AM [facility] MCHC 32.1 32.0 - 37.0 g/dL LAB HEMETOLOGY METHOD 07/18/2024 8:35 AM [facility] RDW 16.1(H) 11.0 - 15.0 % LAB HEMETOLOGY METHOD 07/18/2024 8:35 AM [facility] Platelets 83(L) 130 - 400 K/mcL LAB HEMETOLOGY METHOD 07/18/2024 8:35 AM [facility] Comment:previously verified by slide MPV 9.4 7.0 - 11.0 FL LAB HEMETOLOGY METHOD 07/18/2024 8:35 AM [facility] NRBC 0.0 <1.0 % LAB HEMETOLOGY METHOD 07/18/2024 8:35 AM [facility] NRBC Absolute 0.00 <0.10 K/[facility] LAB HEMETOLOGY METHOD 07/18/2024 8:35 AM EST [facility] Blood Venous blood specimen / Unknown Venipuncture / Unknown 07/18/2024 6:05 AM EST 07/18/2024 6:37 AM EST us Trina Brock MD LAB BLOOD ORDERABLES Fin al Result 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
--- OUTSIDE RECORDS SUMMARY | 2024-10-29 14:48 | XMS_ITS | Clinical Summary ---
Author Organization LL [address] [place] [address] [place] [phone] Phone Care Team Providers Care Casting Chipper Name Role Phone Jamilah Bueno Primary Care Provider [phone] Allergies Active Allergy Reactions Criticality Noted Date Comments Penicillins 08/12/2024 Piperacillin-Tazobactam 09/02/2022 Liver problems Tazobactam 08/12/2024 Medications furosemide (LASIX) 20 mg tablet TAKE 1 TABLET BY MOUTH DAILY 90 tablet 1 4 Active aspirin 81 mg EC tablet Take 1 tablet (81 mg total) by mouth 1 (one) time each day. 4 Active losartan (COZAAR) 100 mg tablet Take [...] a day if needed for constipation. Active metoprolol succinate (TOPROL-XL) 25 mg 24 hr tablet Take 0.5 tablets (12.5 mg total) by mouth 1 (one) time each day. Sig - Route: Take 0.5 Tablets by mouth daily for 360 days. - Oral 45 each 1 5 Active metoprolol succinate (TOPROL-XL) 25 mg 24 hr tablet Sig - Route: Take 0.5 Tablets by mouth daily for 360 days. - Oral 4 10/18/19 25 Discontinu ed(Reorder ) Active Problems Problem Noted Date Diagnosed Date [...] Encounters Date Type Department Care Team Description 10/17/2024 Telephone [facility] [address] [place] [address] Dejuan Grider MD Med Refill 08/23/2024 11:20 AM EST Office Visit [facility] [address] [place] [address] Dejuan Grider MD Nonrheumatic aortic valve stenosis (Primary Dx); Coronary artery disease involving [place] coronary artery of [place] heart without angina pectoris 08/20/2024 Telephone [facility] [address] [place] [address] Román Mclean MD pt needs labs before 11/04/24 one year TAVR f/u visit w/[facility] 08/09/2024 Telephone [facility] [address] [place] [address] Dejuan Grider MD Med Refill (Losartan) from Last 3 Months Surgical History Surgery [...] Description 10/30/2024 1:30 PM EDT Ancillary Procedure [facility] Cardiology [facility] [address] [place] [address] 11/04/2024 3:40 PM EDT Office Visit [facility] Cardiology [facility] [address] [place] [address] Goldy Butler NP [address] [place] [address] [address] [place] [address] 02/24/2025 11:10 AM EDT Office Visit [facility] Cardiology [facility] [address] [place] [address] Emmie Pickens NP [address] [place] [address] [address] [place] [address] Health Maintenance Due Date Last Done Comments Diabetes: Annual Foot Exam 1950 Diabetes: Annual Retina Eye Exam 1950 Depression Screening 05/28/2022 Falls Risk Assessment 05/28/2022 Social Influencers of Health Screening 05/28/2022 Medicare Annual Wellness Visit 08/01/2023 08/01/2022 COVID-19 Vaccine (10 - Mixed Product risk season) 2024 03/14/2024, 04/21/2023, 05/19/2022, Additional history exists Diabetes: Blood Sugar Control Test (HGBA1C) 10/09/2024 04/10/2024, 12/12/2023 Hypertension/CHF/CAD Annual BMP Blood Test 10/25/2025 10/25/2024, 07/23/2024, 07/18/2024, Additional history exists Cholesterol Screening (Lipid Panel) 07/30/2026 07/30/2021 DTaP,Tdap,and Td Vaccines (6 - Td or Tdap) 08/16/2034 08/16/2024, 03/11/2022, 10/09/2018, Additional history exists Pneumococcal Vaccine: 50+ Years Completed 11/12/2014, 11/12/2014, 06/19/2014, Additional history exists Zoster Vaccines Completed 09/27/2021, 0809/2019, 10/08/2010, Additional history exists Influenza Vaccine Completed 03/26/2024, [...] Associated Diagnosis Comments COMPLETE BLOOD COUNT Routine 10/25/2024 12:26 PM EDT COMPREHENSIVE METABOLIC PANEL Routine 10/25/2024 12:26 PM EDT HEMOGLOBIN A1C Routine 12/12/2023 LIPID PANEL Routine 07/30/2021 from Last 3 Months or Most Recently Relevant to Health Maintenance Results * (ABNORMAL) Complete blood count (10/25/2024 12:26 PM EDT) WBC 7.2 3.4 - 10.8 x10E3/uL [facility] RBC 4.29 4.14 - 5.80 x10E6/uL [facility] Hemoglobin 12.7(L) 13.0 - 17.7 g/dL [facility] 1 Hematocrit 38.2 37.5 - 51.0 % [facility] 1 MCV 89 79 - 97 fL [facility] 1 MCH 29.6 26.6 - 33.0 pg [facility] 1 MCHC 33.2 31.5 - 35.7 g/dL [facility] 1 RDW 13.5 11.6 - 15.4 % [facility] 1 Platelets 172 150 - 450 x10E3/uL [facility] 1 10/25/2024 12:2 6 PM EDT 10/25/2024 Narrative [facility] 1 - 10/26/2024 5:06 AM EDT Performed at: ??01 - [facility] [address] ??[id number] Chain Carrier: Leydi Jalloh MD, Phone: ??[phone] us Goldy Butler DICTAPHONE MECHANIC LAB BLOOD ORDERABLES Final Result [facility] * (ABNORMAL) Comprehensive metabolic panel (10/25/2024 12:26 PM EDT) Glucose 192(H) 70 - 99 mg/dL [facility] 1 Blood Urea Nitrogen (BUN) 25 8 - 27 mg/dL [facility] 1 Creatinine 1.00 0.76 - 1.27 mg/dL [facility] 1 eGFR 73 >59 mL/min/1. 73 [facility] 1 BUN/Creatinine Ratio 25(H) 10 - 24 [facility] 1 Sodium 141 134 - 144 mmol/L [facility] 1 Potassium 4.5 3.5 - 5.2 mmol/L [facility] 1 Chloride 103 96 - 106 mmol/L [facility] 1 Carbon Dioxide 21 20 - 29 mmol/L [facility] 1 Calcium 9.9 8.6 - 10.2 mg/dL [facility] 1 Protein Total 5.4(L) 6.0 - 8.5 g/dL [facility] 1 Albumin 3.7 3.7 - 4.7 g/dL [facility] 1 Globulin Total 1.7 1.5 - 4.5 g/dL [facility] 1 Bilirubin Total 0.6 0.0 - 1.2 mg/dL [facility] 1 Alkaline Phosphatase 122(H) 44 - 121 IU/L [facility] 1 Aspartate aminotransferase??(A ST) 20 0 - 40 IU/L [facility] 1 Alanine Aminotransferase (ALT) 24 0 - 44 IU/L [facility] 1 10/25/2024 12:2 6 PM EDT 10/25/2024 Narrative [facility] 1 - 10/26/2024 5:06 AM EDT Performed at: ??01 - [facility] [address] ??[id number] Chain Carrier: Leydi Jalloh MD, Phone: ??[phone] Goldy Butler NP LAB BLOOD ORDERABLES Final Result [facility] * Hemoglobin A1c (12/12/2023) Hemoglobin A1C 0.0 [...] Recently Relevant to Health Maintenance Insurance MEDICARE [facility] Care Teams Casting Chipper Relationship Specialty Start Date End Date Jamilah Bueno PA [address] [place] [address] PCP - General 08/23/24
--- OUTSIDE RECORDS SUMMARY | 2024-10-29 14:48 | XMS_ITS | Continuity of Care Document ---
Author Organization [facility] Address [address] [place] [address] [address] [place] [address]- Care Team Providers Care Medical Transcriptionist Name Role Phone Jamilah Gann Primary Care Physician Encounter [facility] Date(s): 09/24/24 - 10/24/[address] [place], [place] [address] Attending Physician: Olya Torres Admitting Physician: Olya Torres Referring Physician: Admtr ArJenniffer Encounter Type: Triage Allergies, Adverse Reactions, Alerts Substance Criticality Severity [...] Confirmed Active Renal artery stenosis Confirmed Active Social History Social History Type Response Smoking [...] Position: Reference Physician Member Role: PCP Address: [address] [place] [address] Telecom: Name: Anastasia Oliva RN Position: S RN Member Role: Primary Care Nurse Care Team Related Persons Name: LUISITO SHEPHERD Name: GRACIE SHEPHERD Insurance Providers Guarantor name: BEBO SHEPHERD Health Plan Information #: 1 Payer: MEDICARE PART B OUTPT Member Number: NA Policy Number: NA Group Number: NA Health Plan Information #: 2 Payer: MEDEX Member Number: NA Policy Number: NA Group Number: NA
--- OUTSIDE RECORDS SUMMARY | 2024-10-29 14:48 | XMS_ITS | Encounter Summary ---
Author Organization [facility] Address [address] [place] [address] Care Team Providers Care Civil Cad Designer Name Role Phone Jamilah Bueno Primary Care Provider [phone] Encounter Details Date Type Department Care Team (Late st Contact Info) Description 07/22/2024 Lab Requisition [facility] - Main Lab [address] [facility] [place] [address] Trina Brock MD [address] [place] [phone] Occlusion and stenosis of left vertebral artery; Benign prostatic hyperplasia without lower urinary tract symptoms; Atherosclerotic heart disease of [place] coronary artery without angina pectoris; Type 2 diabetes mellitus without complications ([facility] V24, [facility] V28) Social History Tobacco Use Types [...] Description 10/30/2024 1:30 PM EDT Ancillary Procedure [facility] Cardiology [facility] [address] [place] [phone] 11/04/2024 3:40 PM EDT Office Visit [facility] Cardiology [facility] [address] [place] [phone] Goldy Butler NP [address] [place] [address] [address] [place], [place] [phone] 02/24/2025 11:10 AM EDT Office Visit [facility] [address] [place] [address] Emmie Pickens NP [address] [place] [address] [address] [place], [place] [phone] documented as of this encounter Procedures Procedure Name Priority Date/Time Associated Diagnosis Comments COMPLETE BLOOD COUNT Routine 07/23/2024 6:38 AM EST Occlusion and stenosis of left vertebral artery Benign prostatic hyperplasia without lower urinary tract symptoms Atherosclerotic heart disease of [place] coronary artery without angina pectoris Type 2 diabetes mellitus without complications (CMS/HCC) BASIC METABOLIC PANEL Routine 07/23/2024 6:38 AM EST Occlusion and stenosis of left vertebral artery Benign prostatic hyperplasia without lower urinary tract symptoms Atherosclerotic heart disease of [place] coronary artery without angina pectoris Type 2 diabetes mellitus without complications (CMS/HCC) documented in this encounter Results * (ABNORMAL) Basic metabolic panel (07/23/2024 6:38 AM EST) Sodium 142 133 - 145 mmol/L LAB CHEMISTRY METHOD 07/23/2024 9:[address] [facility] Potassium 3.4(L) 3.5 - 5.5 mmol/L LAB CHEMISTRY METHOD 07/23/2024 9:[address] [facility] Chloride 107 96 - 110 mmol/L LAB CHEMISTRY METHOD 07/23/2024 9:[address] [facility] CO2 28 21 - 32 mmol/L LAB CHEMISTRY METHOD 07/23/2024 9:[address] [facility] Anion Gap 7 3 - 11 LAB CHEMISTRY METHOD 07/23/2024 9:[address] [facility] Glucose 126(H) 70 - 100 mg/dL LAB CHEMISTRY METHOD 07/23/2024 9:[address] [facility] BUN 9 5 - 25 mg/dL LAB CHEMISTRY METHOD 07/23/2024 9:[address] [facility] Creatinine 0.67(L) 0.70 - 1.30 mg/dL LAB CHEMISTRY METHOD 07/23/2024 9:[address] [facility] eGFR 91 >=60 mL/min/1. 73m2 LAB CHEMISTRY METHOD 07/23/2024 9:[address] [facility] Comment:Calculation based on the??Chronic Kidney Disease Epidemiology Collaboration (CKD-EPI) equation refit??without adjustment for race. BUN/Creatinine Ratio 13.4 LAB CHEMISTRY METHOD 07/23/2024 9:[address] [facility] Calcium 8.6 8.5 - 10.5 mg/dL LAB CHEMISTRY METHOD 07/23/2024 9:[address] [facility] Blood Venous blood specimen / Unknown Venipuncture / Unknown 07/23/2024 6:38 AM EST 07/23/2024 8:11 AM EST us Trina Brock MD LAB BLOOD ORDERABLES Fin al Result [facility] [address] [place] [address], * (ABNORMAL) Complete blood count (07/23/2024 6:38 AM EST) WBC 2.8(L) 4.8 - 10.8 K/mcL LAB HEMETOLOGY METHOD 07/23/2024 9:[address] [facility] RBC 3.50(L) 4.50 - 5.50 M/mcL LAB HEMETOLOGY METHOD 07/23/2024 9:[address] [facility] Hemoglobin 10.7(L) 13.5 - 17.5 g/dL LAB HEMETOLOGY METHOD 07/23/2024 9:[address] [facility] Hematocrit 33.9(L) 42.0 - 54.0 % LAB HEMETOLOGY METHOD 07/23/2024 9:[address] [facility] MCV 97.7 79.0 - 98.0 FL LAB HEMETOLOGY METHOD 07/23/2024 9:[address] [facility] MCH 30.8 27.0 - 32.0 pcg LAB HEMETOLOGY METHOD 07/23/2024 9:[address] [facility] MCHC 31.6(L) 32.0 - 37.0 g/dL LAB HEMETOLOGY METHOD 07/23/2024 9:[address] [facility] RDW 15.0 11.0 - 15.0 % LAB HEMETOLOGY METHOD 07/23/2024 9:[address] [facility] Platelets 88(L) 130 - 400 K/mcL LAB HEMETOLOGY METHOD 07/23/2024 9:[address] [facility] Comment:previously verified by slide MPV 9.6 7.0 - 11.0 FL LAB HEMETOLOGY METHOD 07/23/2024 9:[address] [facility] NRBC 0.0 <1.0 % LAB HEMETOLOGY METHOD 07/23/2024 9:[address] [facility] NRBC Absolute 0.00 <0.10 K/mcL LAB HEMETOLOGY METHOD 07/23/2024 9:[address] [facility] Blood Venous blood specimen / Unknown Venipuncture / Unknown 07/23/2024 6:38 AM EST 07/23/2024 8:11 AM EST us Trina Brock MD LAB BLOOD ORDERABLES Fin al Result [facility] [address] [place] [address], [place] [phone] documented in this encounter Visit Diagnoses Diagnosis Occlusion and stenosis of left vertebral artery Benign prostatic hyperplasia without lower urinary tract symptoms Atherosclerotic heart disease of [place] coronary artery without angina pectoris Type 2 diabetes mellitus without complications (CMS/HCC V24, CMS/HCC V28) documented in this encounter Care Teams Civil Cad Designer Relationship Specialty Start Date End Date Jamilah Bueno PA [address] [place] [address] [address] [place] [address] PCP - General 08/23/24 documented as of this encounter
== END 2024-10-29 14:57 | disposition home or self-care (01) ==
LOC: HO.RHE 13:41
PROVIDERS: PCP Internal Medicine; Referring Provider Student in an Organized Health Care Education/Training Program; Visit Provider Student in an Organized Health Care Education/Training Program
DX: M06.09 Rheumatoid arthritis without rheumatoid factor, multiple sites (principal); Z79.899 Other long term (current) drug therapy; Z51.81 Encounter for therapeutic drug level monitoring; Z79.69 Long term (current) use of other immunomodulators and immunosuppressants
CPT/HCPCS: 99214; G2211

== ENCOUNTER → 2024-10-29 13:40 | Outpatient (BNVA) | payer OTHER, SELFPAY | PROVIDERS: PCP Internal Medicine; Visit Provider Student in an Organized Health Care Education/Training Program | DX: M06.09 Rheumatoid arthritis without rheumatoid factor, multiple sites (principal); Z51.81 Encounter for therapeutic drug level monitoring; Z79.69 Long term (current) use of other immunomodulators and immunosuppressants; Z79.899 Other long term (current) drug therapy | CPT/HCPCS: 99212 ==

== ENCOUNTER 2025-01-06 16:50 | Emergency (ER) | payer MEDICARE, SELFPAY ==
--- NOTE | 2025-01-06 | ECG_ITS ---
Test Reason : dizziness Blood Pressure : */* mmHG Vent. Rate : 77 BPM Atrial Rate : 77 BPM P-R Int : 174 ms QRS Dur : 110 ms QT Int : 442 ms P-R-T Axes : 17 -36 11 degrees QTcB Int : 500 ms Normal sinus rhythm Left axis deviation Moderate voltage criteria for LVH, may be normal variant ( R in aVL , [place] product ) Septal infarct (cited on or before 05-Jul-2024) Prolonged QT Abnormal ECG When compared with ECG of 05-Jul-2024 12:26, Questionable change in initial forces of Septal leads T wave inversion no longer evident in Lateral leads Referred By: Generic ED Physician Electronically Signed By: Jimmy Grimes
[2025-01-06 17:18] LABS: Glucose, Whole Blood 114 mg/dL (60-115)
[2025-01-06 17:19] VITALS: BP 149/45; BP 70/40; PULSE 70; PULSE 78; RESP 14; TEMP 36.9; O2SAT 98; O2SAT 99; BMI 25.0
--- NOTE | 2025-01-06 17:41 | PC.NURSE ---
kylie from home d/t hypoglycemia. pt reports feeling shaky/dizzy/checked his POC displaying 40mg/dL. pt then self administered 4 glucose tabs and peanut butter cups COMMUNICATION CENTER COORDINATOR. upon EMS arrival - POC = 95mg/dL. pt reported increased dizziness and was noted to be hypotensive 70/40. given 400ml NS w/ good effect. POC = 114mg/dL upon ED arrival. a&ox4. vss and up to date. nsr on the cardiac cath rn. pt denies any dizziness/lightheadedness. asymptomatic. on RA w/o difficulty. no sob/wob noted. respirations even/unlabored. pt provided w/ snacks/drinks - will reassess POC. plan of care ongoing. call appiah placed within reach.
[2025-01-06 17:45] LABS: MANUAL DIFF FLAG NO
[2025-01-06 17:47] LABS: Hematocrit 33.9 % (42.0-52.0); Hemoglobin 11.2 g/dl (14.0-18.0); Imm Gran Abs Auto 0.03 X10*3/uL (0.00-0.03); Imm Gran Pct Auto 0.5 % (0.0-0.4); Lymphocytes Absolute Auto 0.9 X10*3/uL (1.2-4.9); Mean Corpuscular HGB Conc 33.0 g/dl (31.0-36.0); Mean Corpuscular Hemoglobin 28.4 pg (27.0-33.0); Mean Corpuscular Volume 86.0 fL (80.0-98.0); NRBC Abs Auto 0.000 X10*3/uL (0.0-0.012); NRBC Pct Auto 0.0 /100WBC (0.0-0.2); Platelet Count 154 X10*3/uL (160-400); Red Blood Count 3.94 X10*6/uL (4.60-5.80); White Blood Count 6.3 X10*3/uL (4.8-10.8)
[2025-01-06 17:49] LABS: Appearance Urine Clear; Glucose Urine UA Negative (Negative); PH 6.5 (5.0-9.0); Specific Gravity - Urine 1.010 (1.005-1.025)
[2025-01-06 18:00] LABS: Alanine Aminotransferase 23 U/L (0-40); Albumin Level 3.4 g/dL (3.5-5.0); Alkaline Phosphatase 142 U/L (39-117); Anion Gap 15 (12-20); Aspartate Amino Transferase 43 U/L (5-37); Blood Urea Nitrogen 18 mg/dL (9-16); Calcium 8.7 mg/dL (8.4-10.2); Carbon Dioxide 28 mmol/L (22-29); Chloride 102 mmol/L (96-108); Creatinine Clr Calc Pharmacy 42.7; Estimated Glomerular Filt Rate 60; Potassium 4.0 mmol/L (3.3-5.1); Sodium 141 mmol/L (135-145); Total Protein 5.4 g/dL (6.5-8.0)
--- NOTE | 2025-01-06 18:09 | ED.GENADULT ---
HPI - General Adult General Chief complaint: Dizziness Stated complaint: Hypoglycemic/Dizziness Time Seen by Provider: 01/06/25 17:09 Source: patient Mode of arrival: EMS Limitations: no limitations History of Present Illness ED Provider: HPI narrative: Patient's history of type 2 diabetes on insulin pump been working outside all day today and did not have his lunch which is not unusual for him noticed his blood sugar going down it was 40 mg/dl earlier patient took for glucose tablets and peanut butter and continued to work just prior to arrival patient become increased dizziness and had a near-syncope episode without any injury on arrival of EMS patient was hypotensive 70/40 and sugar was 92 was given 400 cc of normal saline blood pressure improved on arrival patient's POC was 114 patient is supposed to decrease the dosage of insulin while working outside which he forgot to do it Related Data Home Medications ?Medication ?Instructions ?Recorded ?Confirmed Novolog U-100 Insulin aspart 0 units subcut (via wearable 06/01/20 07/31/24 injectr) DAILY tamsulosin 0.4 mg capsule 0.4 mg PO BEDTIME 06/24/22 07/31/24 vitamins A,C,S-vxdy-ndyuiz 4,296 1 cap PO BID 06/24/22 07/31/24 mcg-226 mg-90 mg capsule (PreserVision AREDS) acetaminophen 650 mg 650 mg PO Q8H PRN Pain 09/06/22 07/31/24 tablet,extended release (Tylenol 8 Hour) cyclobenzaprine 10 mg tablet 10 mg PO DAILY 09/06/22 07/31/24 cholecalciferol (vitamin D3) 50 50 mcg PO BID 11/21/22 07/31/24 mcg (2,000 unit) capsule calcium citrate 1,600 mg PO BID 12/24/22 07/31/24 testosterone cypionate 200 mg/mL 60 mg IM TU 06/02/23 07/31/24 intramuscular oil furosemide 20 mg tablet mg PO 08/22/23 07/31/24 amlodipine 2.5 mg tablet 2.5 mg PO DAILY 07/29/24 07/31/24 atorvastatin 10 mg tablet (Lipitor) 10 mg PO DAILY 07/29/24 07/31/24 docusate sodium 100 mg capsule 100 mg PO DAILY 10/29/24 Previous Rx's ?Medication ?Instructions ?Recorded aspirin 81 mg tablet,delayed 81 mg PO DAILY #90 tabs 02/10/23 release omeprazole 20 mg capsule,delayed 20 mg PO BID #180 caps 04/08/24 release pilocarpine HCl 5 mg tablet 5 mg PO BID #180 tabs 08/13/24 gabapentin 600 mg tablet 600 mg PO TID #270 tabs 10/29/24 hydroxychloroquine 200 mg tablet See Rx Instructions PO .COMPLEX 10/29/24 #108 tabs leflunomide 20 mg tablet 20 mg PO DAILY #90 tabs 10/29/24 prednisone 2.5 mg tablet 2.5 mg PO DAILY #90 tabs 10/29/24 ibuprofen 800 mg tablet 800 mg PO TID 10 days #30 tabs 11/12/24 Allergies Allergy/AdvReac Type Severity Reaction Status Date / Time Penicillins Allergy Severe ITCHING-SEV Verified 01/06/25 17:20 ERE piperacillin (From Zosyn) Allergy Mild JAUNDICE Verified 01/06/25 17:20 tazobactam (From Zosyn) Allergy Mild JAUNDICE Verified 01/06/25 17:20 Review of Systems Review of Systems: Yes all other systems are reviewed and are negative PMFSH Past Medical History Medical History Encounter for monitoring leflunomide therapy Long-term use of Plaquenil Symptomatic stenosis of left carotid artery Aortic stenosis Rheumatoid arthritis Carpal tunnel syndrome Former smoker Insulin pump in place Diabetes Elevated cholesterol CAD (coronary artery disease) HTN (hypertension) Surgical History History of left-sided carotid endarterectomy (02/15/23) Hx of carpal tunnel repair Hx of cardiac catheterization History of shoulder surgery History of cholecystectomy History of hand surgery Hx of hemorrhoidectomy Hx of lumbar discectomy H/O colonoscopy Family History Family History Father Heart attack Heart disease Mother Pacemaker Cataracts, bilateral Sister Heart problem Heart valve replaced Arthritis Brother Heart attack Brother Rectal cancer Sister History of modified radical mastectomy of right breast Social History Social History Household Members: None Housing: House Are you a primary managed care manager to a significant other at home: No Do you presently have visiting nurse or other home services: No Alcohol intake: never Patient Tobacco Use Status: Former Tobacco user Tobacco use type: Cigarette Years Smoked: 5 YEARS Smoked in Last 30 Days: No Use of substances other than those prescribed or required for medical reasons: No Advance Directives: No Advance Directives Information Provided: Yes Advance Directives Date on File: 02/07/23 Do you have a plan to hurt others: No Plan service: No Current occupational status: employed Current occupation: [employer], rt handed Physical Exam ED Vital Signs: Vital Signs - 24 hr 01/06/25 17:19 Temperature 98.5 F Pulse Rate 78 Respiratory Rate 14 Blood Pressure 149/45 H Pulse Oximetry 98 Oxygen Delivery Method Room Air BMI result Body Mass Index 25.0 Appearance: Alert. Oriented X3. No acute distress. Eyes: PERRLA, No Nystagmus ENT: Pharynx normal. Oral Mucosa moist Neck: Normal inspection. Neck supple. CVS: Normal heart rate and rhythm. Pulses normal. Respiratory: No respiratory distress. Equal air entry bilateral, no wheezing/rales/rhonchi Abdomen: Soft and nontender. Bowel sounds are present, no mass palpable, no CVA tenderness Skin: Skin warm and dry. Normal skin color. Normal skin turgor. Extremities: No lower extremity edema. No calf tenderness Neuro: Oriented X 3. No motor deficit. No sensory deficit.No cerebellar signs , cranial nerves II-XII intact Medical Decision Making Medical Decision Making [facility] Narrative: Patient diabetic on insulin pump comes here for hyperglycemic episode due to decreased oral intake and continued to be on insulin patient has had food in the ER blood sugar stayed stable last POC was 151 will discharge patient home Differential Diagnosis Differential Diagnoses: The differential diagnosis associated with the presentation includes Lab Data [facility] Lab Attestation statement: I reviewed the patient's lab results. 01/06/25 17:41 01/06/25 17:41 Labs: Lab Results 01/06/25 01/06/25 01/06/25 Range/Units 17:13 17:41 18:11 WBC 6.3 (4.8-10.8) X10*3/uL RBC 3.94 L D (4.60-5.80) X10*6/uL Hgb 11.2 L (14.0-18.0) g/dl Hct 33.9 L (42.0-52.0) % MCV 86.0 (80.0-98.0) fL MCH 28.4 (27.0-33.0) pg MCHC 33.0 (31.0-36.0) g/dl RDW 14.3 (11.0-16.0) % Plt Count 154 L D (160-400) X10*3/uL MPV 9.2 L (9.4-12.4) fL Immature Gran % (Auto) 0.5 H (0.0-0.4) % Neut % (Auto) 70.6 (45-73) % Lymph % (Auto) 13.8 L (20-40) % Leon % (Auto) 13.2 H (2-11) % Eos % (Auto) 1.3 (0-4) % Baso % (Auto) 0.6 (0-2) % Lymph # (Auto) 0.9 L (1.2-4.9) X10*3/uL Leon # (Auto) 0.8 (0.1-1.2) X10*3/uL Eos # (Auto) 0.1 (0.0-0.4) X10*3/uL Baso # (Auto) 0.0 (0.0-0.2) X10*3/uL Abs Immat Gran (auto) 0.03 (0.00-0.03) X10*3/uL Absolute Neuts (auto) 4.5 (2.0-8.3) x10*3/uL Absolute Nucleated RBC 0.000 (0.0-0.012) X10*3/uL Nucleated RBC % (auto) 0.0 (0.0-0.2) /100WBC Sodium 141 (135-145) mmol/L Potassium 4.0 (3.3-5.1) mmol/L Chloride 102 (96-108) mmol/L Carbon Dioxide 28 (22-29) mmol/L Anion Gap 15 (12-20) BUN 18 H (9-16) mg/dL Creatinine 1.16 (0.5-1.4) mg/dL Estim Creat Clear Calc 42.7 Estimated GFR 60 POC Glucose 114 135 H (60-115) mg/dL Random Glucose 151 H (60-115) mg/dL Calcium 8.7 D (8.4-10.2) mg/dL Total Bilirubin 0.5 (0.0-1.0) mg/dL AST 43 H (5-37) U/L ALT 23 (0-40) U/L Alkaline Phosphatase 142 H (39-117) U/L Total Protein 5.4 L (6.5-8.0) g/dL Albumin 3.4 L (3.5-5.0) g/dL Urine Color Yellow Urine Appearance Clear Urine pH 6.5 (5.0-9.0) Ur Specific Melrose 1.010 (1.005-1.025) Urine Protein Negative (Neg-Trace) mg/dL Urine Glucose (UA) Negative (Negative) mg/dL Urine Ketones Negative (Negative) mg/dL Urine Blood Negative (Negative) Urine Nitrite Negative (Negative) Ur Leukocyte Esterase Negative (Negative) 01/06/25 Range/Units 18:44 WBC (4.8-10.8) X10*3/uL RBC (4.60-5.80) X10*6/uL Hgb (14.0-18.0) g/dl Hct (42.0-52.0) % MCV (80.0-98.0) fL MCH (27.0-33.0) pg MCHC (31.0-36.0) g/dl RDW (11.0-16.0) % Plt Count (160-400) X10*3/uL MPV (9.4-12.4) fL Immature Gran % (Auto) (0.0-0.4) % Neut % (Auto) (45-73) % Lymph % (Auto) (20-40) % Leon % (Auto) (2-11) % Eos % (Auto) (0-4) % Baso % (Auto) (0-2) % Lymph # (Auto) (1.2-4.9) X10*3/uL Leon # (Auto) (0.1-1.2) X10*3/uL Eos # (Auto) (0.0-0.4) X10*3/uL Baso # (Auto) (0.0-0.2) X10*3/uL Abs Immat Gran (auto) (0.00-0.03) X10*3/uL Absolute Neuts (auto) (2.0-8.3) x10*3/uL Absolute Nucleated RBC (0.0-0.012) X10*3/uL Nucleated RBC % (auto) (0.0-0.2) /100WBC Sodium (135-145) mmol/L Potassium (3.3-5.1) mmol/L Chloride (96-108) mmol/L Carbon Dioxide (22-29) mmol/L Anion Gap (12-20) BUN (9-16) mg/dL Creatinine (0.5-1.4) mg/dL Estim Creat Clear Calc Estimated GFR POC Glucose 132 H (60-115) mg/dL Random Glucose (60-115) mg/dL Calcium (8.4-10.2) mg/dL Total Bilirubin (0.0-1.0) mg/dL AST (5-37) U/L ALT (0-40) U/L Alkaline Phosphatase (39-117) U/L Total Protein (6.5-8.0) g/dL Albumin (3.5-5.0) g/dL Urine Color Urine Appearance Urine pH (5.0-9.0) Ur Specific Melrose (1.005-1.025) Urine Protein (Neg-Trace) mg/dL Urine Glucose (UA) (Negative) mg/dL Urine Ketones (Negative) mg/dL Urine Blood (Negative) Urine Nitrite (Negative) Ur Leukocyte Esterase (Negative) Independent Interpretation I performed an independent interpretation of an: EKG Interpretation: Normal sinus rhythm heart rate 77 beats per minute left axis deviation LVH no acute ST-T no acute ischemia Discharge Plan Discharge Clinical Impression: Diabetic hypoglycemia Patient Disposition: Home, Self-Care Instructions: Hypoglycemia in a Person with Diabetes (DC) Additional Instructions: Care and cautions as advised Have your proper meal while on insulin Follow with your PCP as needed Prescriptions: No Action omeprazole 20 mg capsule,delayed release(DR/EC) 20 mg PO BID Qty: 180 3RF pilocarpine HCl 5 mg tablet 5 mg PO BID Qty: 180 1RF ibuprofen 800 mg tablet 800 mg PO TID 10 Days Qty: 30 0RF Novolog U-100 Insulin aspart 0 units subcut (via wearable injectr) DAILY Rx Instructions: via TANDEM insulin pump calcium citrate 200 mg (950 mg) Tablet 1,600 mg PO BID aspirin 81 mg Tablet,Delayed Release (Dr/Ec) 81 mg PO DAILY Qty: 90 0RF testosterone cypionate 200 mg/mL Oil 60 mg IM TU PreserVision AREDS 14320-226-200 [id number]-[id number] capsule 1 cap PO BID tamsulosin 0.4 mg capsule 0.4 mg PO BEDTIME cyclobenzaprine 10 mg tablet 10 mg PO DAILY acetaminophen [Tylenol 8 Hour] 650 mg tablet extended release 650 mg PO Q8H PRN (Reason: Pain) furosemide 20 mg tablet PO cholecalciferol (vitamin D3) 50 mcg (2,000 unit) capsule 50 mcg PO BID amlodipine 2.5 mg tablet 2.5 mg PO DAILY atorvastatin [Lipitor] 10 mg tablet 10 mg PO DAILY docusate sodium 100 mg capsule 100 mg PO DAILY gabapentin 600 mg tablet 600 mg PO TID Qty: 270 1RF hydroxychloroquine 200 mg tablet See Rx Instructions PO .COMPLEX Qty: 108 1RF Rx Instructions: Take 1 tab daily Mon - Fri and 1 tab twice a day Sat-Sun Do not take with citalopram leflunomide 20 mg tablet 20 mg PO DAILY Qty: 90 1RF prednisone 2.5 mg tablet 2.5 mg PO DAILY Qty: 90 1RF Interventions: ED Discharge Assessment Last Done: 01/06/25 19:08 Discharge Date/Time: 01/06/25 19:09 Print Language: Jordanian
--- NOTE | 2025-01-06 18:12 | PC.NURSE ---
POC reassessed s/p consuming saltines, leonora crackers and peanut butter. POC displays 135mg/dL. pt given additional pb&j sandwich. will reassess.
[2025-01-06 18:19] LABS: Glucose, Whole Blood 135 mg/dL (60-115)
[2025-01-06 18:43] VITALS: BP 150/61; PULSE 88; RESP 17; TEMP 36.4; O2SAT 97
[2025-01-06 18:50] LABS: Glucose, Whole Blood 132 mg/dL (60-115)
[2025-01-06 19:08] VITALS: BP 150/61; PULSE 88; RESP 17; TEMP 36.4; O2SAT 97
== END 2025-01-06 19:09 | disposition home or self-care (01) ==
PROVIDERS: Emergency Provider Internal Medicine
DX: E11.649 Type 2 diabetes mellitus with hypoglycemia without coma (principal); I95.9 Hypotension, unspecified; R42 Dizziness and giddiness; I10 Essential (primary) hypertension; E78.5 Hyperlipidemia, unspecified; Z87.891 Personal history of nicotine dependence; Z79.4 Long term (current) use of insulin; Z96.41 Presence of insulin pump (external) (internal); Z79.82 Long term (current) use of aspirin; Z79.899 Other long term (current) drug therapy; Z79.02 Long term (current) use of antithrombotics/antiplatelets
CPT/HCPCS: 36415; 80053; 81003; 82947; 85025; 93005; 99283; 99285

== ENCOUNTER → 2025-01-06 17:12 | Outpatient (BNV) | payer MEDICARE, SELFPAY | PROVIDERS: Emergency Provider Internal Medicine; Visit Provider Internal Medicine Cardiovascular Disease | DX: I25.2 Old myocardial infarction (principal) | CPT/HCPCS: 93010 ==

== ENCOUNTER 2025-01-21 09:21 | Outpatient (REF) | payer MEDICARE, SELFPAY ==
--- OUTSIDE RECORDS SUMMARY | 2024-05-08 06:00 | XMS_ITS | Encounter Summary ---
Author Name [facility] Organization [facility] Address [address] [place] [id number] Care Team Providers Care Patch Sander Name Role Phone TOÑO PETER Primary Care Provider Unavail able Insurance Providers: [...] O MEDEX BRONZ E Mar 19, 2004 [id number] HOLLIE SHEPHERD PATIENT ANTHEM [place] SUPPLEMEN MASTER MEDEX BRONZ E Mar 19, 2004 [id number] HOLLIE SHEPHERD PATIENT [place] SUPPLEMEN MASTER MEDEX BRONZ E Mar 19, 2004 [id number] HOLLIE SHEPHERD [place] SUPPLEMEN MASTER MEDEX BRONZ E Mar 19, 2004 [id number] HOLLIE SHEPHERD PATIENT [place] SUPPLEMEN MASTER PSUED O MEDEX BRONZ E Mar 19, 2004 [id number] CORAHOLLIE SILVA ALD PATIENT MEDICARE (WNR) MEDICARE () PART B Mar 19, 2004 PART B [id number] [phone] CORAHOLLIE SILVA ALD PATIENT MEDICARE (WNR) MEDICARE () PART B Mar 19, 2004 PART B [id number] CORAHOLLIE ALD PATIENT MEDICARE (WNR) MEDICARE () PART B Mar 19, 2004 PART B [id number] CORAHOLLIE ALD PATIENT MEDICARE (WNR) MEDICARE () PART B Mar 19, 2004 PART B [id number] [phone] CORAHOLLIE SILVA ALD PATIENT MEDICARE (WNR) MEDICARE () PART A Feb 17, 2003 PART A [id number] CORAHOLLIE SILVA ALD PATIENT MEDICARE (WNR) MEDICARE () PART B Feb 17, 2003 PART B [id number] CORAHOLLIE SILVA ALD PATIENT MEDICARE (WNR) MEDICARE () PART A Feb 17, 2003 PART A [id number] CORAHOLLIE SILVA ALD PATIENT MEDICARE (WNR) MEDICARE () PART B Feb 17, 2003 PART B [id number] CORAHOLLIE SILVA ALD PATIENT MEDICARE (WNR) MEDICARE () PART A Feb 17, 2003 PART A [id number] CORAHOLLIE SILVA ALD PATIENT MEDICARE (WNR) MEDICARE () PART A Feb 17, 2003 PART A [id number] CORAHOLLIE SILVA ALD PATIENT MEDICARE (WNR) MEDICARE () PART A Feb 17, 2003 PART A [id number] [phone] CORAHOLLIE SILVA ALD PATIENT MEDICARE (WNR) MEDICARE () PART A Feb 17, 2003 PART A [id number] [phone] CORA,HOLLIE VELASQUEZ PATIENT Selected Encounter This section includes the information on record at MD for the Encounter. Date/Time Encounter Type Encounter Description Reason Provider Source May 08, 2024 10:00 AM THERAPEUTIC EXERCISES OCCUPATIONAL THERAPY ICD-10-CM M75.41 Impingement syndrome of right shoulder CYNTHIA MCLEAN IHE Encounter Template Text not used by MD Assessments - Encounter Diagnoses This section includes the primary and secondary diagnoses documented for the Encounter. Date/Time Primary/Secondary Diagnosis Diagnosis Name Provider Source May 21, 2024 04:32 PM PRIMARY Impingement syndrome of right shoulder CYNTHIA MCLEAN [facility] [place] Plan of Treatment: Future Appointments (+ 6 months) and Future Tests (+/- 45 days) The Plan of Treatment section includes future care activities for the patient from [facility] This section includes future appointments and future orders which are active, pending or scheduled. Future Appointments This section includes appointments that were scheduled to occur 6 months from the date of the Encounter, up to a maximum of 20 appointments. The data comes from all MD treatment facilities. Appointment Date/Time Appointment Type Appointme nt Facility Name May 29, 2024 11:30 AM AMBULATORY - MEDICINE [facility] [place] Jun 05, 2024 12:00 PM [facility] Jun 05, 2024 12:00 PM AMBULATORY - PSYCHIATRY [facility] [place] [facility] Jun 17, 2024 10:30 AM AMBULATORY - MEDICINE [facility] [place] [facility] Jun 17, 2024 10:31 AM AMBULATORY - MEDICINE [facility] [place] [facility] Jun 17, 2024 11:45 AM AMBULATORY - NONE [facility] [place] [facility] Jun 21, 2024 11:00 AM AMBULATORY - MEDICINE [facility] [place] Jul 05, 2024 10:00 AM AMBULATORY - MEDICINE [facility] [place] Jul 10, 2024 08:00 AM AMBULATORY - MEDICINE [facility] [place] Jul 10, 2024 01:30 PM AMBULATORY - MEDICINE [facility] [place] Aug 01, 2024 11:00 AM AMBULATORY - MEDICINE [facility] [place] Aug 06, 2024 10:00 AM AMBULATORY - MEDICINE [facility] [place] [facility] Aug 16, 2024 02:00 PM AMBULATORY - MEDICINE [facility] [place] Aug 20, 2024 09:00 AM AMBULATORY - MEDICINE MD [facility] [place] [facility] Aug 22, 2024 11:00 AM AMBULATORY - MEDICINE MD [facility] [place] [facility] Sep 27, 2024 11:00 AM AMBULATORY - PSYCHIATRY MD [facility] [place] [facility] Oct 02, 2024 01:00 PM AMBULATORY - MEDICINE MD [facility] [place] [facility] Oct 03, 2024 02:00 PM AMBULATORY - MEDICINE MD [facility] [place] Oct 08, 2024 11:00 AM AMBULATORY - NONE MD [facility] [place] [facility] October 28, 2024 01:30 PM [facility] Active, Pending, and Scheduled Orders This section includes a listing of several types of active, pending, and scheduled orders, including clinic medications orders, diagnostic test orders, procedure orders and consult orders; where the start date of the order is 45 days before the date of the Encounter or 45 days after the date of theEncounter. The data comes from all MD treatment facilities. Test Date/Time Test Type Test Details Facility Name Jun 10, 2024 11:25 AM Consult Order COMMUNITY CARE-UROLOGY Cons Chairman Ceo's Choice [facility] Lab Results: +/- 30 days of the encounter This section includes the Chemistry and Hematology Lab Results on record with MD for the patient. Radiology Reports and Pathology Reports are provided separately, in subsequent sections. Lab Results This section contains the Chemistry/Hematology Results that were resulted 30 days before or 30 daysafter the date of the Encounter. Date/Time Source Result Type Result - Unit Interpretation Reference Range Specimen Type Comment Jun 04, 2024 10:27 AM [facility] HEMOGLOBIN A1C PANEL BLOOD Specimen Type: BLOOD Comment: Values obtained from A1C measurements can vary. For atypical A1C assays, a reported value of 7.0 could actually be between 6.72 and 7.28 if measured by a reference method. A reported value of 9.0 could actually be between 8.73 and 9.27. Ref: http://www.ngsp .org/CAPdata.as p Ordering Provider: LUCAS PETER AM Report Released Date/Time: May 29, 2024 06:36 PM Reporting [facility]: [facility] [address] [facility] [address] Performing Lab: [facility] [address] [facility] [address] HEMOGLOBIN A1C 6.5 H 4.0-5.6 Jun 04, 2024 10:27 AM [facility] MICROALBUMIN CREATININE RATIO PANEL URINE Spe cimen Type: URINE No comment entered. Ordering Provider: TOÑO PETER Report Released Date/Time: May 29, 2024 06:36 PM Reporting Lab: [facility] [address] [facility] [address] Performing Lab: [facility]ITALUSE[address] [address] MICROALBUMIN/CREATININE RATIO 36.0 mg/g H 0-29.9 MICROALBUMIN,QUANTITATIVE 2.8 mg/dL RR U NAVAIL CREATININE URINE 77.84 mg/dL Jun 04, 2024 10:27 AM [facility] BASIC METABOLIC PANEL (non-fasting) SERUM Spe cimen Type: SERUM No comment entered. Ordering Provider: TOÑO PETER Report Released Date/Time: May 29, 2024 06:36 PM Reporting Lab: [facility] [address] [facility] [address] Performing Lab: [facility]ITALUSE[address] [address] UREA NITROGEN 19 mg/dL 7-25 GLUCOSE 187 mg/dL H 65-100 SODIUM 140 mmol/L 135-145 POTASSIUM 3.8 mmol/L 3.5-5.0 CHLORIDE 103 mmol/L 100-110 CO2 25 meq/L 20-30 CREATININE, Serum 0.97 mg/dL 0.50-1.40 eGFR(CKD-EPI 2020) 76 mL/min >60 Jun 04, 2024 10:27 AM [facility] LIPID PANEL, NON FASTING SERUM Specimen Type: SERUM No comment entered. Ordering Provider: TOÑO PETER Report Released Date/Time: May 29, 2024 06:36 PM Reporting Lab: [facility] [address] [facility] [address] Performing Lab: [facility] [address] [address] CHOLESTEROL 151 mg/dL TRIGLYCERIDE 146 mg/dL 0-150 LDL calculated 73 mg/dL 0-129 CHOL/HDL 3.1 HDL CHOLESTEROL 49 mg/dL 40-60 Jun 04, 2024 10:27 AM [facility] TSH SERUM Specimen Type: SERUM No comment entered. Ordering Provider: TOÑO PETER Report Released Date/Time: May 29, 2024 06:36 PM Reporting Lab: [address] [address] Performing Lab: [address] [address] TSH 1.78 u[IU]/mL 0.35-5.00 Jun 04, 2024 10:27 AM [facility] LIVER FUNCTION SERUM Specimen Type: SERUM No comment entered. Ordering Provider: TOÑO PETER Report Released Date/Time: May 29, 2024 06:36 PM Reporting Lab: [address] [address] Performing Lab: [address] [address] PROTEIN,TOTAL 5.5 g/dL L 6.0-8.3 ALBUMIN 3.7 g/dL 3.5-5.0 ALKALINE PHOSPHATASE 78 U/L 40-150 AST 20 U/L 5-34 ALT 19 U/L BILIRUBIN, TOTAL 1.3 mg/dL H 0.2-1.2 BILIRUBIN, DIRECT 0.5 mg/dL 0-0.5 May 08, 2024 11:24 AM [facility] TESTOSTERONE, TOTAL (WHV) SERUM Specimen Type : SERUM No comment entered. Ordering Provider: TOÑO PETER Report Released Date/Time: Aug 11, 2023 11:52 AM Reporting Lab: [address] [address] Performing Lab: [facility] [address] [facility] [address] TESTOSTERONE, TOTAL (WHV) 44.33 ng/dL L 22 0.00-892.00 May 08, 2024 11:24 AM [facility] LIVER FUNCTION SERUM Specimen Type: SERUM No comment entered. Ordering Provider: TOÑO PETER Report Released Date/Time: Aug 11, 2023 11:52 AM Reporting Lab: [address] [address] Performing Lab: [address] [address] PROTEIN,TOTAL 5.5 g/dL L 6.0-8.3 ALBUMIN 3.6 g/dL 3.5-5.0 ALKALINE PHOSPHATASE 71 U/L 40-150 AST 20 U/L 5-34 ALT 24 U/L BILIRUBIN, TOTAL 1.1 mg/dL 0.2-1.2 May 08, 2024 11:24 AM [facility] CBC BLOOD Specimen Type: BLOOD No comment entered. Ordering Provider: TOÑO PETER Report Released Date/Time: Aug 11, 2023 11:52 AM Reporting Lab: [address] [address] Performing Lab: [address] [address] WBC 4.08 10*3/uL L 4.50-11.00 RBC 4.53 10*6/uL 4.23-5.66 HGB 13.1 g/dL 12.8-17 HCT 39.9 39.2-50.4 MCV 88.1 fL 82-99 MCHC 32.8 g/dL 30.8-35.1 PLT 130 10*3/uL L 140-360 RDW-CV 14.5 12.0-16.0 MCH 28.9 pg 26.2-32.6 May 08, 2024 11:24 AM [facility] BASIC METABOLIC PANEL (fasting) SERUM Specime n Type: SERUM No comment entered. Ordering Provider: TOÑO PETER Report Released Date/Time: Aug 11, 2023 11:52 AM Reporting Lab: [facility] [address] [facility] [address] Performing Lab: [facility] [address] [facility] [address] UREA NITROGEN 19 mg/dL 7-25 GLUCOSE 216 mg/dL H 65-100 SODIUM 142 mmol/L 135-145 POTASSIUM 3.5 mmol/L 3.5-5.0 CHLORIDE 107 mmol/L 100-110 CO2 25 meq/L 20-30 CREATININE, Serum 0.84 mg/dL 0.50-1.40 eGFR(CKD-EPI 2020) 85 mL/min >60 May 08, 2024 11:24 AM [facility] LIPID PANEL FASTING SERUM Specimen Type: SERU M No comment entered. Ordering Provider: TOÑO PETER Report Released Date/Time: Aug 11, 2023 11:52 AM Reporting Lab: [facility] [address] [facility] [address] Performing Lab: [address] [address] CHOLESTEROL 142 mg/dL TRIGLYCERIDE 179 mg/dL H 0-150 LDL calculated 64 mg/dL 0-129 CHOL/HDL 3.4 HDL CHOLESTEROL 42 mg/dL 40-60 May 08, 2024 11:24 AM [facility] CBC AND DIFF (AUTO) BLOOD Specimen Type: BLOO D No comment entered. Ordering Provider: TOÑO PETER Report Released Date/Time: Aug 11, 2023 11:52 AM Reporting Lab: [facility] [address] [facility] [address] Performing Lab: [address] [address] WBC 4.08 10*3/uL L 4.50-11.00 RBC 4.53 10*6/uL 4.23-5.66 HGB 13.1 g/dL 12.8-17 HCT 39.9 39.2-50.4 MCV 88.1 fL 82-99 MCHC 32.8 g/dL 30.8-35.1 PLT 130 10*3/uL L 140-360 RDW-CV 14.5 12.0-16.0 MONO, ABS 0.83 10*3/uL 0.30-1.10 MCH 28.9 pg 26.2-32.6 NEUT % 46.1 43.7-75.8 LYMPH % 30.9 14.0-42.3 MONO % 20.3 H 5.1-13.7 EOS % 1.2 0.4-6.8 BASO % 1.0 0.1-2.0 NEUT, ABS 1.88 10*3/uL L 2.20-7.60 LYMPH, ABS 1.26 10*3/uL 1.00-3.20 EOS, ABS 0.05 10*3/uL 0.03-0.44 BASO, ABS 0.04 10*3/uL 0.01-0.13 IMMATURE GRAN % 0.5 0.0-0.7 IMMATURE GRAN, ABS 0.02 10*3/uL 0.00-0.0 6 NRBC % 0.0 0.0-0.0 NRBC, ABS 0.00 10*3/uL 0.00-0.00 May 08, 2024 11:23 AM [facility] OSMOLALITY (SERUM) SERUM Specimen Type: SERUM No comment entered. Ordering Provider: ALLIE CUELLO Report Released Date/Time: Nov 27, 2023 07:39 PM Reporting Lab: [facility] [address] [facility] [address] Performing Lab: [facility] [address] [address] OSMOLALITY (SERUM) 299 280-300 May 08, 2024 11:23 AM [facility] CALCIUM SERUM Specimen Type: SERUM Comment: *GLUCOSE Not Performed: May 08, 2024@11:36 by [id number] *ATTENDING RADIOLOGIST Reason: Duplicate *UREA NITROGEN Not Performed: May 08, 2024@11:36 by [id number] *ATTENDING RADIOLOGIST Reason: Duplicate *CREATININE (eGFR 2020) Not Performed: May 08, 2024@11:36 by [id number] *ATTENDING RADIOLOGIST Reason: Duplicate *SODIUM Not Performed: May 08, 2024@11:36 by [id number] *ATTENDING RADIOLOGIST Reason: Duplicate *CHLORIDE Not Performed: May 08, 2024@11:36 by [id number] *ATTENDING RADIOLOGIST Reason: Duplicate *CO2 Not Performed: May 08, 2024@11:36 by [id number] *ATTENDING RADIOLOGIST Reason: Duplicate *POTASSIUM Not Performed: May 08, 2024@11:36 by [id number] *ATTENDING RADIOLOGIST Reason: Duplicate Ordering Provider: ALLIE CUELLO Report Released Date/Time: Nov 27, 2023 07:39 PM Reporting Lab: [facility] [address] [facility] [address] Performing Lab: [address] [address] CALCIUM 8.5 mg/dL 8.5-10.2 May 08, 2024 11:23 AM [facility] VITAMIN D (25-OH) SERUM Specimen Type: SERUM No comment entered. Ordering Provider: ALLIE CUELLO Report Released Date/Time: Nov 27, 2023 07:39 PM Reporting Lab: [facility] [address] [facility] [address] Performing Lab: [facility] [address] [facility] [address] VITAMIN D (25-OH) 46 ng/mL 20-50 Social History: Smoking Status (Most current) and Tobacco Use (All prior to encounter date) This section includes the most current, and the historical, smoking and tobacco- related health factors from the MD facility where the Encounter took place. Current Smoking Status This section includes the most current smoking, or tobacco-related health factor, from the MD facility where the Encounter took place. Date/Time Current Smoking Status Comment [facility] Jun 05, 2023 11:00 AM MD-TOBACCO QUIT 15 YRS OR MORE [facility] Tobacco Use History This section includes a history of the smoking, or tobacco-related health factors, that were collected on or before the date of the Encounter. The data comes from the MD facility where the Encounter took place. Date/Time Smoking Status/Tobac co Use Comment Facility Jun 05, 2023 11:00 AM MD-TOBACCO QUIT 15 YRS OR MORE [facility] Jun 06, 2022 01:00 PM VA-TOBACCO FORMER USER [facility] [place] Jun 06, 2022 01:00 PM VA-TOBACCO QUIT 15 YRS OR MORE [facility] Jun 30, 2021 02:37 PM VA-TOBACCO FORMER USER [facility] [place] Jun 30, 2021 02:37 PM VA-TOBACCO QUIT 5 TO < 15 YRS [facility] [place] [facility] May 22, 2020 03:30 PM VA-TOBACCO NEVER USED [facility] [place] May 08, 2018 02:03 PM VA-TOBACCO FORMER USER [facility] [place] May 08, 2018 02:03 PM VA-TOBACCO QUIT 15 YRS OR MORE [facility] [place] November 10, 2017 02:33 PM QUIT TOBACCO USE > 7 YEARS AGO [facility] [place] October 21, 2016 01:55 PM QUIT TOBACCO USE > 7 YEARS AGO [facility] [place] Sep 18, 2015 11:24 AM QUIT TOBACCO USE > 7 YEARS AGO stopped 50 years ago [facility] [place] May 19, 2005 08:01 AM HISTORY OF SMOKING [facility] [place] May 31, 2004 01:02 PM HISTORY OF SMOKING [facility] [place] Jun 04, 2003 07:57 AM HISTORY OF SMOKING [facility] [place] Jun 03, 2002 01:11 PM HISTORY OF SMOKING [facility] [place] Jun 03, 2002 01:11 PM QUIT TOBACCO USE > 7 YEARS AGO [facility] [place] [facility] Advance Directives: All historical and current Section Date Range: From patient's date of to the date document was created. This section includes ALL of a patient's completed or amended MD Advance and Rescinded Directives. The entries below indicate that a directive exists for the patient, but an actual copy is not included with this document. The data comes from all MD facilities. Date Advance Directives Provider Source Jun 02, 2023 ADVANCE DIRECTIVE JENNIFER QUIROS MD [facility] Encounter Notes: All associated encounter notes This section contains the clinical notes associated to the Encounter. Date/Time Encounter Note(s) Provider Source May 08, 2024 09:40 AM OCCUPATIONAL MEDICINE CONSULT: LOCAL TITLE: CONSULT REPORT/OCCUPATIONAL THERAPY STANDARD TITLE: OCCUPATIONAL MEDICINE CONSULT DATE OF NOTE: MAY 08, 2024@09:40 ENTRY DATE: MAY 08, 2024@09:40:29 AUTHOR: CYNTHIA MCLEAN COSIGNER: TOÑO PETER URGENCY: STATUS: COMPLETED Initial Evaluation date: Apr Progress Note Date: Treatment #: eval Treatment time: 45 minutes Diagnosis: Impingement Syndrome of right Shoulder(ICD-10-CM M75.41) Provider: Brittani OT Treatment Precautions: Cardiac Patient identified by full name and date of S: Mr. Shepherd is an 84 y/o 10% SC male who was referred to OT for R shoulder pain. He was seen in the OT clinic on 05/08/2024. PMH: Active problems - Computerized Problem List is the source for the followin. Elevated PSA 2. Aortic Valve Disorder (SCT 1911619) 3. Cerebrovascular disease 4. Chronic recurrent major depressive disorder 5. Insulin pump present 6. Hypertension 7. Family history of cancer of colon 8. Testicular hypofunction 9. Osteoporosis 10. Major depressive disorder 11. RA - Rheumatoid arthritis 12. History of colonic polyp 13. Diverticular disease of colon 14. Adjustment disorder 15. Hemorrhoids 16. Polymyalgia Rheumatica 17. Microscopic Hematuria 18. Rosacea 19. Hypertension (SNOMED CT 38852090) 20. Spinal Stenosis * 21. Hyperlipidemia (SNOMED CT 89925502) 22. Osteoarthritis * 23. Lower Back Pain * 24. Vertigo 25. Diabetes mellitus type 2 (SNOMED CT 10294753) 26. Gastroesophageal Reflux Disorder MICHAEL: pt reports that over 3 weeks ago he fell out of bed, he went to answer his phone, and he fell on his R shoulder. he reports it was painful after that. he did have imaging taken and it was negative for fx. over the last few weeks it's improved significantly. Imaging: X-ray dated 04/02/2024: Report: Study: AP internally and externally rotated and Axillary views of the right shoulder. Comparison: None. Findings: The visualized lung and ribs appear normal. The bony mineralization is normal. Prominent vascular calcifications present in the right axillary region. Chondrocalcinosis changes present to the AC joint with superior marginal osteophytes present. There is abnormal widening of the AC joint which can be seen from remote versus acute grade 2 AC joint separation. Correlation with the patient's site of pain is recommended. Curvilinear punctate calcifications adjacent to the greater tuberosity of the humerus are suggestive of calcific tendinopathy or calcific bursitis. There is a 4 mm well-corticated round bony ossicle beneath the acromion likely representing loose body within the joint space. Moderate degenerative osteoarthritic changes are present to the glenohumeral joint space. There is no bony fracture identified. Impression: Shoulder changes, as described above. Primary Diagnostic Code: No immediate attention required Pain Level: 0/10 at rest, increasing to 7-8/10 at worst Pain Location: lateral shoulder/AC joint Aggravating Factors: abduction Alleviating Factors: rest O: Pt is R hand dominant. 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 hx; [place], 6 years. He enjoys woodworking. Clinical Presentation: rounded shoulders, FHP supraspinatus atrophy noted b/l Palpation: very slight ttp and tightness noted over anterior shoulder muscualture bony abnormality AC joint; denies ttp AROM: Shoulder: [R] [L] Flexion: WNL WNL Abduction: 90* WNL IR: L4 WNL ER: C6 C6 *(+) for pain with active abduction, slight w/ IR MMT: Shoulder: NT Special Tests: Acharya: NT Neers: NT Empty Can: (+) R Drop Arm: (-) R Sensation: denies paresthesia's; intact to light touch. TX: *MHP x5' to R shoulder prior to tx *pulleys into flexion w/ 10 second hold on R, 1x10 *trialed wall slides; increased pain. HOLD *wall ladder into flexion, 30x5 Access Code: [email or web address] URL: [email or web address] Date: 05/08/2024 Prepared by: [facility] Exercises - Seated Shoulder Flexion AAROM with Boyd Behind - 1 x daily - 7 x weekly - 3 sets - 5 reps - 10 hold - Standing Shoulder Flexion Wall Walk - 1 x daily - 7 x weekly - 3 sets - 5 reps ASSESSMENT: Hollie is an 84 y/o male who presents to the OT clinic w/ s/s of R dominant arthritic changes/ AC joint and likely RTC tendinopathy as evidenced pt report, clinical presentation and positive provocative testing. His AROM is full except for abduction (pain) and IR. He reports his shoulder is much improved since the fall, but was in agreement w/ trialing gentle AAROM in order to improve AROM and pain. PLAN: Pt will benefit from skilled OT 1-2x/week for 4-6 weeks. Tx to include: R shoulder ROM, R shoulder strengthening, scap stab, mobilization/manual therapy, pt. education, and modalities: ice, heat. Pt is in agreement w/ this POC. LTG's (6-8 weeks): 1. Pain: 2-3, at worst R shoulder 2. ROM: WFL and pain-free 3. pt will report 50% improvement since initiating tx STG's (3-6 weeks): 1. (I) w/ HEP 2. Pain: <8/10 at worst 3. Improve abduction by 10-15* The practitioner's co-signature on this note signifies agreement with plan of care and clinical diagnosis code. /thomas/ Cynthia Mclean MS OTR/Gabino, CHT Occupational Therapist Signed: 05/08/2024 15:56 /thomas/ Toño Peter PA-C STAFF PHYSICIAN FIRE REGULATOR Cosigned: 05/09/2024 07:39 [facility]AN [facility]
--- OUTSIDE RECORDS SUMMARY | 2025-01-20 14:30 | XMS_ITS | Encounter Summary ---
Author Organization [employer] Address [address] [place] [address] Care Team Providers Care Surgical Assist Name Role Phone Bong Marino Primary Care Provider [phone] Reason for Visit * Imaging (Routine) - Authorized Specialty Diagnoses / Procedures Referred By Patricio beltran Referred To Contact Cardiology Diagnoses Aortic valve stenosis, etiology of cardiac valve disease unspecified Procedures Transthoracic echocardiogram (TTE) complete with PRN contrast, bubble, strain, and 3D order panel Transthoracic echocardiogram (TTE) complete with PRN contrast, bubble, strain, and 3D order panel SC TTE W 2D IMAGE COMPLETE W DOPPLER ECHO & COLOR FLOW DOPPLER ECHO SC ADAM 2D COMPLETE W/CONTRAST OR W & WO CONTRAST WITH DOPPLER Román Mclean MD [address] [place] [address] [address] [place] [address] Phone: tel: fax: [facility] Referral ID Status Reason Start Date Expiration Date V isits Requested Visits Authorized [id number] Authorized 08/19/2024 08/19/2025 1 1 Encounter Details Date Type Department Care Team (Latest Contact Info) Description 01/20/2025 2:30 PM EDT Ancillary Procedure [facility] [address] [place] [id number] Aortic valve stenosis, etiology of cardiac valve disease unspecified Social History Tobacco Use Types Packs/Day Years [...] on file documented as of this encounter Last Filed Vital Signs Vital Sign Reading Time Taken Comments Blood Pressure 105/60 01/20/2025 2:51 PM EDT Pulse - - Temperature - - Respiratory Rate - - Oxygen Saturation - - Inhaled Oxygen Concentration - - Weight 68.5 kg (151 lb) 01/20/2025 2:51 PM EDT Height 170.2 cm (5' 7 ) 01/20/2025 2:51 PM EDT Body Mass Index 23.65 01/20/2025 2:51 PM EDT documented in this encounter Plan of Treatment Upcoming Encounters Date Type Department Care Team (Late st Contact Info) Description 02/24/2025 11:10 AM EDT Office Visit [facility] [address] [place] [address] [place] [address] Emmie Pickens NP [address] [place] [address] [address] [place] [address] Pending Results Name Type Priority Associated Diagnoses Date/Time Transthoracic echocardiogram (TTE) complete with PRN contrast, bubble, strain, and 3D order panel Echocardiography Routine Aortic valve stenosis, etiology of cardiac valve disease unspecified 01/20/2025 2:51 PM EDT documented as of this encounter Visit Diagnoses Diagnosis Aortic valve stenosis, etiology of cardiac valve disease unspecified documented in this encounter Care Teams Surgical Assist Relationship Specialty Start Date End Date Bong Marino PA [address] [place] [address] PCP - General Physician Glass Technologist 11/08/24 documented as of this encounter
--- NOTE | ~2025-01-21 | US_ITS ---
CLINICAL HISTORY: I65.23 - Occlusion and stenosis of bilateral carotid arteries US Bilateral Carotid Duplex Comparison: None provided Findings: No significant plaque within the common carotid arteries. No significant plaque within the carotid bulbs. Color doppler and spectral tracings normal. Peak systolic velocities: Right CCA: 96 cm/s. Right ICA: 143 cm/s. ICA/CCA ratio: Normal. Right ECA: 93.8 cm/s. Right vertebral artery flow antegrade. Left CCA: 138 cm/s. Left ICA: 132 cm/s. ICA/CCA ratio: Normal. Left ECA: 74.2 cm/s. Left vertebral artery flow antegrade. IMPRESSION: 1. 50-69% bilateral internal carotid artery stenosis. This document has been electronically signed by: Lenard Olguin MD on 01/21/2025 18:06:46
--- OUTSIDE RECORDS SUMMARY | 2025-01-21 09:44 | XMS_ITS | Clinical Summary ---
Author Organization [facility] Address [facility] [place] [address] Care Team Providers Care Crime Victim Specialist Name Role Phone Veronica Salmeron MD Primary Care Provider [phone] Social History Tobacco Use Types Packs/Day Years Used Date Smoking Tobacco: Never Assessed Sex and Gender Information Value Date Recorded Sex Assigned at Not on file Legal Sex Male 7:17 AM EST Gender Identity Not on file Sexual Orientation Not on file Plan of Treatment Health Maintenance Due Date Last Done Comments Tetanus/Diphtheria/Pertussis Vaccines (1 - Tdap) 03/09 Pneumoccocal Vaccine: 50+ (1 of 1 - PCV) 1988 Zoster vaccine (1 of 2) 1988 Advance Directive 1993 RSV Vaccine (1 - 1-dose 75+ series) 2013 Covid-19 Vaccine (1 - season) 2024 Influenza (Flu) vaccine (1 o f 1 - Influenza standard series) 02/17/2025 Care Teams Crime Victim Specialist Relationship Specialty Start Date End Date Veronica Salmeron MD [facility] [address] [place] [address] PCP - General 05/11/10
== END 2025-01-21 09:22 | disposition home or self-care (01) ==
LOC: HO.US 09:21
PROVIDERS: Visit Provider Surgery Vascular Surgery
DX: I65.23 Occlusion and stenosis of bilateral carotid arteries (principal)
CPT/HCPCS: 93880

== ENCOUNTER → 2025-01-21 09:22 | Outpatient (BNV) | payer MEDICARE, SELFPAY | PROVIDERS: Visit Provider Radiology Diagnostic Radiology | DX: I65.23 Occlusion and stenosis of bilateral carotid arteries (principal) | CPT/HCPCS: 93880 ==

== ENCOUNTER 2025-01-30 08:41 | Outpatient (AMB) | payer MEDICARE, SELFPAY ==
--- OUTSIDE RECORDS SUMMARY | 2024-02-27 02:53 | XMS_ITS | Encounter Summary ---
Author Name [facility] [place] Organization [facility] [place] [facility] [place] Address [address] [place] [id number] Care Team Providers Care Beautician Apprentice Name Role Phone TOÑO CAI Primary Care Provider Unavail able Insurance Providers: All historical and current Section Date Range: From patient's date of to the date document was created. This section includes the names of all active insurance providers for the patient. Insurance Provider Type of Coverage Plan Name Start of Policy Coverage End of Policy Coverage Group Number Member ID Insurance Provider's Telephone Number Policy Wen's Name Patient's Relationship to Policy Wen [place] MEDICARE SUPPLEMEN MASTER PSUED O MEDEX BRONZ E Mar 19, 2004 [id number] [phone] HOLLIE SHEPHERD PATIENT [place] MED[place] SUPPLEMEN MASTER MEDEX BRONZ E Mar 19, 2004 [id number] HOLLIE SHEPHERD PATIENT [place] SUPPLEMEN MASTER MEDEX BRONZ E Mar 19, 2004 [id number] HOLLIE SHEPHERD PATIENT [place] SUPPLEMEN MASTER MEDEX BRONZ E Mar 19, 2004 [id number] [phone] HOLLIE SHEPHERD PATIENT [place] SUPPLEMEN MASTER PSUED O MEDEX BRONZ E Mar 19, 2004 [id number] [phone] CORAHOLLIE SILVA ALD PATIENT MEDICARE (WNR) MEDICARE () PART B Mar 19, 2004 PART B [id number] CORAHOLLIE SILVA ALD PATIENT MEDICARE (WNR) MEDICARE () PART B Mar 19, 2004 PART B [id number] CORAHOLLIE ALD PATIENT MEDICARE (WNR) MEDICARE () PART B Mar 19, 2004 PART B [id number] [phone] CORAHOLLIE ALD PATIENT MEDICARE (WNR) MEDICARE () PART B Mar 19, 2004 PART B [id number] CORAHOLLIE SILVA ALD PATIENT MEDICARE (WNR) MEDICARE () PART A Feb 17, 2003 PART A [id number] [id number] [phone] CORAHOLLIE SILVA ALD PATIENT MEDICARE (WNR) MEDICARE () PART B Feb 17, 2003 PART B [id number] [id number] [phone] CORAHOLLIE SILVA ALD PATIENT MEDICARE (WNR) MEDICARE () PART A Feb 17, 2003 PART A [id number] [id number] [phone] CORAHOLLIE SILVA ALD PATIENT MEDICARE (WNR) MEDICARE () PART B Feb 17, 2003 PART B [id number] [phone] CORAHOLLIE SILVA ALD PATIENT MEDICARE (WNR) MEDICARE () PART A Feb 17, 2003 PART A [id number] [phone] CORAHOLLIE SILVA ALD PATIENT MEDICARE (WNR) MEDICARE () PART A Feb 17, 2003 PART A [id number] CORAHOLLIE ALD PATIENT MEDICARE (WNR) MEDICARE () PART A Feb 17, 2003 PART A [id number] CORAHOLLIE SILVA ALD PATIENT MEDICARE (WNR) MEDICARE () PART A Feb 17, 2003 PART A [id number] CORA,HOLLIE ALD PATIENT Selected Encounter This section includes the information on record at [place] for the Encounter. Date/Time Encounter Type Encounter Description Reason Pro vider Source Feb 27, 2024 06:53 AM Outpatient Encounter ADMIN PAT ACTIVTIES (MASNONCT) IHE Encounter Template Text not used by [place] Plan of Treatment: Future Appointments (+ 6 months) and Future Tests (+/- 45 days) The Plan of Treatment section includes future care activities for the patient from all [place] treatmentfacilities. This section includes future appointments and future orders which are active, pending or scheduled. Future Appointments This section includes appointments that were scheduled to occur 6 months from the date of the Encounter, up to a maximum of 20 appointments. The data comes from all [place] treatment facilities. Appointment Date/Time Appointment Type Appointme nt Facility Name Feb 28, 2024 01:00 PM AM[facility] [place] [place] [facility] Feb 28, 2024 01:00 PM [facility] [place] [facility] Mar 25, 2024 10:00 AM AMBULATORY [facility] MEDICINE [facility] [place] [facility] Mar 25, 2024 10:30 AM [facility]AT[facility]INE [facility] [place] [facility] Apr 02, 2024 02:00 PM AM[facility]ULATORY [facility]INE [facility] [place] [facility] Apr 04, 2024 02:00 PM [facility]AT[facility]INE [facility] [place] [facility] Apr 08, 2024 01:00 PM AMBULATORY - REHAB MEDICIN [facility] [place] [facility] Apr 12, 2024 09:45 AM AM[facility]ULATORY [facility]INE [facility] [place] [facility] Apr 16, 2024 10:00 AM AMBULATORY - REHAB MEDICIN [facility] [place] [facility] May 02, 2024 10:00 AM AMBULATORY - [facility]HAB MEDICIN [facility] [place] [facility] May 08, 2024 10:00 AM AMBULATORY - REHAB MEDICIN [facility] [place] [facility] May 29, 2024 11:30 AM AM[facility]ULATORY [facility] MEDICINE [facility] [place] [facility] Jun 05, 2024 12:00 PM AM[facility] [place] [facility] Jun 05, 2024 12:00 PM AM[facility]ULATORY [facility]RY [facility] [place] [facility] Jun 17, 2024 10:30 AM AM[facility]ULATORY [facility] MEDICINE [facility] [place] [facility] Jun 17, 2024 10:31 AM AM[facility]ULATORY [facility]ICINE [facility] [place] [facility] Jun 17, 2024 11:45 AM AMBULATORY - NONE [facility] [place] [facility] Jun 21, 2024 11:00 AM AM[facility]ULATORY [facility]ICINE [facility] [place] [facility] Jul 05, 2024 10:00 AM AM[facility]ULATORY [facility] [place] [facility] Jul 10, 2024 08:00 AM AMBULATORY - MEDICINE [place] [facility] [place] [facility] Social History: Smoking Status (Most current) and Tobacco Use (All prior to encounter date) This section includes the most current, and the historical, smoking and tobacco- related health factors from the [place] facility where the Encounter took place. Current Smoking Status This section includes the most current smoking, or tobacco-related health factor, from the [place] facility where the Encounter took place. Date/Time Current Smoking Status Comment Facil it Jun 05, 2023 11:00 AM VA-TOBACCO QUIT 15 YRS OR MORE [place] [facility] [place] [facility] Tobacco Use History This section includes a history of the smoking, or tobacco-related health factors, that were collected on or before the date of the Encounter. The data comes from the [place] facility where the Encounter took place. Date/Time Smoking Status/Tobac co Use Comment Facility Jun 05, 2023 11:00 AM VA-TOBACCO QUIT 15 YRS OR MORE [facility] [place] [facility] Jun 06, 2022 01:00 PM VA-TOBACCO FORMER USER [facility] [place] [facility] Jun 06, 2022 01:00 PM VA-TOBACCO QUIT 15 YRS OR MORE [facility] [place] [facility] Jun 30, 2021 02:37 PM VA-TOBACCO FORMER USER [facility] [place] [facility] Jun 30, 2021 02:37 PM VA-TOBACCO QUIT 5 TO < 15 YRS [facility] [place] [facility] May 22, 2020 03:30 PM VA-TOBACCO NEVER USED [facility] [place] [facility] May 08, 2018 02:03 PM VA-TOBACCO FORMER USER [facility] [place] [facility] May 08, 2018 02:03 PM VA-TOBACCO QUIT 15 YRS OR MORE [facility] [place] [facility] November 10, 2017 02:33 PM QUIT TOBACCO USE > 7 [facility] October 21, 2016 01:55 PM QUIT TOBACCO USE > 7 YEARS AGO [facility] Sep 18, 2015 11:24 AM QUIT TOBACCO USE > 7 YEARS AGO stopped 50 years ago [facility] May 19, 2005 08:01 AM [facility] May 31, 2004 01:02 PM [facility] Jun 04, 2003 07:57 AM [facility] SMOKING [facility] Jun 03, 2002 01:11 PM HISTORY OF SMOKING [facility] Jun 03, 2002 01:11 PM QUIT TOBACCO USE > 7 YEARS A[facility] Advance Directives: All historical and current Section Date Range: From patient's date of to the date document was created. This section includes ALL of a patient's completed or amended [place] Advance and Rescinded Directives. The entries below indicate that a directive exists for the patient, but an actual copy is not included with this document. The data comes from all [place] facilities. Date Advance Directives Provider Source Jun 02, 2023 ADVANCE DIRECTIVE [facility] Radiology Reports: +/- 30 days of the encounter Radiology Reports For cases when an order for radiology services may have been completed prior to the date of the Encounter, the report list includes the Radiology Reports that were completed up to 30 days before dateof the Encounter. For cases when an order for radiology services may have been completed after the date of the Encounter, the report list also includes the Radiology Reports that were completed up to30 days after date of the Encounter. The data comes from all [place] treatment facilities. Date/Time Radiology Report Provider Source Feb 12, 2024 10:52 AM SPINE LUMBOSACRAL MIN 2 VIEWS: BEBO SHEPHERD Nisa [id number] [phone] M Exm Date: FEB 12, 2024@10:52 Req Phys: TOÑO CAI Loc: CWM/NO/PACT 3 (Req'g Loc) Img Loc: [facility]/BUILDING 1 Service: Unknown [facility] [place]A LOVE [id number] (Case 32 COMPLETE) SPINE LUMBOSACRAL MIN 2 VIEWS (RAD Detailed) CPT:72962 Reason for Study: acute pain. Clinical History: Please burn him a disc. Report Status: Verified Date Reported: FEB 13, 2024 Date Verified: FEB 13, 2024 Rehab Services Aide E-Sig: Report: SPINE LUMBOSACRAL MIN 2 VIEWS HISTORY: acute pain. COMPARISON: None. TECHNIQUE: 3 view(s) of the lumbar spine, submitted to the [place] National Teleradiology Program (NTP) for interpretation. Impression: Normal lumbar lordosis is maintained. Vertebral bodies maintain normal heights. There is extensive anterior and posterior fusion with posterior transpedicular screws and rods and L2-L3 through L5-S1 interbody spacers. 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 No hardware failure. READING PHYSICIAN: Lorena Alcaraz M.D. -[id number] 02/12/2024 23:26 [facility] National Teleradiology Program [phone] (For Medical Practitioner Use Only) Attention Patients / Veterans: If you have questions or concerns about these test results, please contact your ordering provider or primary care team. Primary Diagnostic Code: NO ALERT REQUIRED Primary Interpreting Staff: RADIOLOGY,OUTSIDE SERVICE, Staff Physician / RADIOLOGY,OUTSIDE SERVICE [facility] Encounter Notes: All associated encounter notes This section contains the clinical notes associated to the Encounter. Date/Time Encounter Note(s) Provider Source Feb 27, 2024 06:53 AM PHARMACY NOTE: LOCAL TITLE: V1 PHARMACY CUSTOMER CARE MEDICATION RENEWAL STANDARD TITLE: PHARMACY NOTE DATE OF NOTE: FEB 27, 2024@06:53 ENTRY DATE: FEB 27, 2024@06:53:27 AUTHOR: VALENCIA BAUMANN COSIGNER: URGENCY: STATUS: COMPLETED Date: Feb Division: [place] Pt referred by Pharmacy Call Center for medication renewal: Non-controlled/maintenan ce medication Medications requested: [id number] ATORVASTATIN CALCIUM 80MG TAB Defer to specialty clinic To be mailed . Please review and renew if appropriate. *This note was generated by [facility] Pharmacy Customer Care. If you have any questions or need assistance, do not contact this author. Please refer all questions to your local, on-site pharmacy departments. /thomas/ VALENCIA BAUMANN [facility], [place]/Pharmacy Customer Care Signed: 02/27/2024 06:53 Receipt Acknowledged By: 02/27/2024 11:57 /thomas/ ALLIE CUELLO MD STAFF PHYSICIAN VALENCIA BAUMANN [facility]
--- OUTSIDE RECORDS SUMMARY | 2025-01-30 09:04 | XMS_ITS | Clinical Summary ---
Author Organization [facility] Address [facility] [place] [address] Care Team Providers Care Gambreler Name Role Phone Veronica Salmeron MD Primary Care Provider [phone] Social History Tobacco Use Types Packs/Day Years [...] - Influenza standard series) 02/17/2025 Care Teams Gambreler Relationship Specialty Start Date End Date Veronica Salmeron MD [facility] INTER[facility] [address] [place] [address] PCP - General 05/11/10
--- NOTE | 2025-01-30 09:12 | A.OFFVIS_ITS ---
Vital Signs 01/30/25 09:23 Height 5 ft 7 in Weight 150 lb 12.739 oz BMI 23.6 BP 152/80 H Blood Pressure Location Rt brachial Position Sitting Pulse 68 Pulse Source Pulse Oximeter Pulse Oximetry (%) 98 Oxygen Delivery Method Room Air Intake Visit Reasons: 3 mo follow up Intake Note: Patient presents for RA follow up. Patient stated the [facility] took MRI of his lumber spine and he brought the results for Doctor Charles to view. Allergies Penicillins Allergy (Severe, Verified 01/06/25 17:20) ITCHING-SEVERE piperacillin (From Zosyn) Allergy (Mild, Verified 01/06/25 17:20) JAUNDICE tazobactam (From Zosyn) Allergy (Mild, Verified 01/06/25 17:20) JAUNDICE Medication List - Last Reconciled 01/30/25 by Beatriz Soot MD acetaminophen ER (Tylenol 8 Hour) 650 mg PO Q8H PRN amlodipine 2.5 mg PO DAILY aspirin 81 mg PO DAILY atorvastatin (Lipitor) 10 mg PO DAILY calcium citrate 1,600 mg PO BID cholecalciferol (vitamin D3) 50 mcg PO BID cyclobenzaprine 10 mg PO DAILY docusate sodium 100 mg PO DAILY furosemide mg PO gabapentin 600 mg PO TID hydroxychloroquine Take 1 tab daily Mon - Fri and 1 tab twice a day Sat-Sun Do not take with citalopram ibuprofen 800 mg PO TID 10 days leflunomide 20 mg PO DAILY [Novolog U-100 Insulin aspart via TANDEM insulin pump] omeprazole 20 mg PO BID pilocarpine HCl 5 mg PO BID prednisone 2.5 mg PO DAILY tamsulosin 0.4 mg PO BEDTIME testosterone cypionate 60 mg IM TU vitamins A,C,G-jtww-axzrfe 4,296 mcg-226 mg-90 mg (PreserVision AREDS) 1 cap PO BID HPI Comments Details: Patient is an 84-year-old male hypertension, hyperlipidemia, aortic stenosis, diabetes now with insulin pump, osteoporosis with pathological fracture of thoracic vertebrae, seropositive rheumatoid arthritis s/p bilateral carpal fusion, bilateral CTS s/p release and polyarticular osteo arthritis here today for follow up Interval History: Patient last seen 10/29/24 with me - On Hydroxychloroquine 200mg bid, leflunomide 10mg daily, prednisone 5mg - Doing better after pes anserine bursa injection - Complained of arm pain and given buprenorphine patch Since then, - patch not efficacious, given high dose ibuprofen which helped Today - On Hydroxychloroquine 200mg bid, leflunomide 10mg daily, prednisone 5mg - Had improvement in pain with 15microgram buprenorphine patch - Otherwise no significant complaints Rheumatologic History: Seronegative initially diagnosed has PMR around 2004 Was only on prednisone until 2021 when HCQ was added with little benefit MTX added 08/2022- -11/08 not particularly effective and patient developed tender skin nodule on LT forearm Enbrel 11/08-02/08 ineffective Actemra 03/11 effective - stopped 07/2024, diverticulitis complicated by perforation HCQ DC 11/2023, restarted 05/2024 Leflunomide ?start date Current Rheumatology Medication(s): Hydroxychloroquine 200mg bid daily Leflunomide 10mg daily Prednisone 5mg PFSH Medical History Encounter for monitoring leflunomide therapy Long-term use of Plaquenil Symptomatic stenosis of left carotid artery Aortic stenosis Rheumatoid arthritis Carpal tunnel syndrome Former smoker Insulin pump in place Diabetes Elevated cholesterol CAD (coronary artery disease) HTN (hypertension) Surgical History History of left-sided carotid endarterectomy (02/15/23) Hx of carpal tunnel repair Hx of cardiac catheterization History of shoulder surgery History of cholecystectomy History of hand surgery Hx of hemorrhoidectomy Hx of lumbar discectomy H/O colonoscopy Family History Father Heart attack Heart disease Mother Pacemaker Cataracts, bilateral Sister Heart problem Heart valve replaced Arthritis Brother Heart attack Brother Rectal cancer Sister History of modified radical mastectomy of right breast Social History Household Members: None Housing: House Are you a primary animal care attendant to a significant other at home: No Do you presently have visiting nurse or other home services: No Alcohol intake: never Patient Tobacco Use Status: Former Tobacco user Tobacco use type: Cigarette Years Smoked: 5 YEARS Advance Directives Date on File: 02/07/23 service: No Current occupational status: employed Current occupation: [employer], rt handed Review of Systems Const Details: Review of Systems Constitutional: Denies fever, chills, weight loss ENT: Denies vision changes, eye pain or eye redness, dental caries, dry mouth GI: Denies nausea, vomiting, diarrhea, abdominal pain, change in BM Pulm: Denies SOB, GARCIA, hemoptysis, wheezing Cards: Denies chest pain, palpitations Skin: Denies Raynaud's, rash, nail changes, photosensitivity, 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 ?No tenderness to palpation of these joints. Heberden's nodes noted Wrists: ?Bilateral wrist fusion. Some ROM noted in the left Elbows: Full range of motion without pain. No tenderness, weakness, swelling, increased warmth or erythema. Shoulders: Full range of motion without pain. No tenderness, weakness, swelling, increased warmth or erythema. TTP of biceps tendon Knees: Crepitations felt bilaterally. ?No TTP of the pes anserine bursa Ankles: Full range of motion. ?No tenderness, swelling, increased warmth or eryt trevor.? Feet: ?Negative squeeze test. ?No tenderness to palpation or swelling of the MTPs. Tender points:?No tenderness to palpation of the bilateral trapezius, supraspinatus, greater trochanters, anterior costochondral junctions, bilateral gluteal areas, bilateral suboccipital muscle insertions SKIN Skin intact without rashes. Results Reviewed Results Reviewed: Laboratory Tests 06/14/24 01/06/25 13:23 17:41 WBC 6.3 RBC 3.94 L D Hgb 11.2 L Hct 33.9 L Plt Count 154 L D ESR 1 Sodium 141 Potassium 4.0 Chloride 102 Carbon Dioxide 28 BUN 18 H Creatinine 1.16 Estim Creat Clear Calc 42.7 AST 43 H ALT 23 Assessment & Plan Assessment & Plan (1) Rheumatoid arthritis: Comment: Seronegative initially diagnosed has PMR around 2004 Was only on prednisone until 2021 when HCQ was added with little benefit MTX added 08/2022- -11/08 not particularly effective and patient developed tender skin nodule on LT forearm Enbrel 11/08-02/08 ineffective Actemra 03/11 effective - 07/2024. Diverticulitis with perforation HCQ DC 11/2023 Code(s): M06.9 - Rheumatoid arthritis, unspecified Category: Medical Qualifiers: Rheumatoid arthritis location: multiple sites Rheumatoid factor presence: without rheumatoid factor Qualified Code(s): M06.09 - Rheumatoid arthritis without rheumatoid factor, multiple sites Plan: #Seronegative RA Patient is a pleasant 84-year-old male with seronegative rheumatoid arthritis. 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 Category: Medical Plan: #Long-term Use of Hydroxychloroquine Discussed with patient the risks and benefits of hydroxychloroquine in managing the rheumatic condition Benefits include: - Reduced pain, reduce mortality, maintenance of remission and reduction of flares Risks include: - GI upset, skin hyperpigmentation, retinal toxicity (especially after more than 5 years of use), myopathy Advised yearly ophthalmology visits (3) Encounter for monitoring leflunomide therapy: Code(s): Z51.81 - Encounter for therapeutic drug level monitoring; 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 ?Has a very long half-life. ?Needs cholestyramine washout if there is desire for Initiation: ?CBC, BMP, LFTs, hepatitis-B and C serologies every 2-4 weeks for 3 months Monitoring: ?CBC, BMP, LFTs, hepatitis B and C serologies Plan I spent 25 minutes reviewing the record and labs, taking a history, examining the patient, discussing the treatment plan and documenting in the medical record Coding Level of Care Code Est Pt Level 3 (10938) Complex EM visit Add On G2211 Diagnoses Rheumatoid arthritis of multiple sites with negative rheumatoid factor M06.09 Rheumatoid arthritis location: multiple sites Rheumatoid factor presence: without rheumatoid factor Long-term use of Plaquenil Z79.899 Encounter for monitoring leflunomide therapy Z51.81; Z79.69
[2025-01-30 09:23] VITALS: BP 152/80; PULSE 68; O2SAT 98; BMI 23.6
== END 2025-01-30 09:49 | disposition home or self-care (01) ==
LOC: HO.RHES 08:48
PROVIDERS: Visit Provider Student in an Organized Health Care Education/Training Program
DX: M06.09 Rheumatoid arthritis without rheumatoid factor, multiple sites (principal); Z79.899 Other long term (current) drug therapy; Z51.81 Encounter for therapeutic drug level monitoring; Z79.69 Long term (current) use of other immunomodulators and immunosuppressants
CPT/HCPCS: 99213; G2211

== ENCOUNTER → 2025-01-30 08:41 | Outpatient (BNVA) | payer MEDICARE, SELFPAY | PROVIDERS: Visit Provider Student in an Organized Health Care Education/Training Program | DX: M06.09 Rheumatoid arthritis without rheumatoid factor, multiple sites (principal); Z51.81 Encounter for therapeutic drug level monitoring; Z79.69 Long term (current) use of other immunomodulators and immunosuppressants; Z79.899 Other long term (current) drug therapy | CPT/HCPCS: 99212 ==

== ENCOUNTER 2025-03-11 10:37 | Outpatient (AMB) | payer MEDICARE, SELFPAY ==
--- OUTSIDE RECORDS SUMMARY | 2025-03-06 06:58 | XMS_ITS | Encounter Summary ---
Author Organization [facility] Address [address] [place] [address] Care Team Providers Care Transplant Nurse Name Role Phone Bong Marino Primary Care Provider [phone] Reason for Visit * Imaging (Routine) - Closed Specialty Diagnoses / Procedures Referred By Patricio beltran Referred To Contact Radiology Diagnoses Spondylosis of lumbosacral region without myelopathy or radiculopathy Procedures IR Sacral Aug Inj 2+ Ndls Perc bilat IR Sacral Aug Inj 1+ Ndls Perc Unilat Katherin Sargent MD [address] [place] [address] Phone: tel: fax: [address] [address] Phone: tel: Referral ID Status Reason Start Date Expiration Date Visits Re quested Visits Authorized [id number] Closed 02/24/2025 02/24/2026 1 1 Encounter Details Date Type Department Care Team (Latest Contact Info) Description 03/06/2025 6:58 AM EDT - 03/06/2025 11:59 PM EDT Hospital Encounter [facility] Interventional Radiology [address] [place] [address] Spondylosis of lumbosacral region without myelopathy or radiculopathy Discharge Disposition: Home or Self Care Social History Tobacco Use Types Packs/Day Years [...] Sign Reading Time Taken Comments Blood Pressure 156/93 03/06/2025 10:30 AM EDT Pulse 81 03/06/2025 10:30 AM EDT Temperature 36.6 C (97.8 F) 03/06/2025 7:22 AM EDT Respiratory Rate 12 03/06/2025 9:46 AM EDT Oxygen Saturation 99% 03/06/2025 10:30 AM EDT Inhaled Oxygen Concentration - - Weight - - Height 162.6 cm (5' 4 ) 03/06/2025 7:08 AM EDT Body Mass Index - - documented in this encounter Discharge Instructions * Attachments The following attachments cannot be sent through Care Everywhere. * Kyphoplasty: Post op (Latvian) documented in this encounter Medications at Time of Discharge acetaminophen (TYLENOL 8 HOUR) 650 mg 8 hr tablet Take 650 mg by mouth every 8 hours as needed. aspirin 81 mg EC tablet Take 1 tablet (81 mg total) by mouth 1 (one) time each day. 10/09/2023 atorvastatin (LIPITOR) 80 mg tablet Take 0.5 tablets by mouth at bedtime. azithromycin (ZITHROMAX) 500 mg tablet Take 1 tablet 30-60 minutes prior to dental procedures. 1 each 4 03/03/2025 buprenorphine (BUTRANS) 20 mcg/hour Place 1 patch on the skin 1 (one) time per week. calcium amino acid chelate 200 mg calcium tablet Sig - Route: Take 800 mg by mouth 2 Times Daily. - Oral cholecalciferol (VITAMIN D-3) 50 mcg (2,000 unit) tablet Take 1 tablet (2,000 Units total) by mouth 1 (one) time each day. cyclobenzaprine (FLEXERIL) 10 mg tablet Take 10 mg by mouth at bedtime. 08/11/2019 dextrose (GLUCOSE ORAL) Take 4 mg by mouth if needed. DILUENT, INSULIN ASPART NO.1 INJ Inject into the skin. pump docusate sodium (COLACE) 100 mg capsule Take 1 capsule (100 mg total) by mouth 2 (two) times a day if needed for constipation. furosemide (LASIX) 20 mg tablet TAKE 1 TABLET BY MOUTH DAILY 90 tablet 1 06/03/2024 gabapentin (NEURONTIN) 600 mg tablet Take 1 Tablet by mouth 3 times daily. 04/07/2020 hydroxychloroqui ne (PLAQUENIL) 200 mg tablet Take 1 tablet (200 mg total) by mouth 1 (one) time each day. insulin aspart (NovoLOG) 100 unit/mL injection Sliding scale 06/03/2024 insulin glargine (LANTUS) 100 unit/mL injection Inject 19 Units under the skin at bedtime. PRN pump L. acidophilus/L. bifidus (LACTOBACILLUS ACIDOPH-L. BIFID ORAL) 1 tablet 1 (one) time each day. leflunomide (ARAVA) 10 mg tablet Take 1 tablet (10 mg total) by mouth 1 (one) time each day. losartan (COZAAR) 100 mg tablet Take 1 tablet (100 mg total) by mouth 1 (one) time each day. 90 tablet 1 08/09/2024 metoprolol succinate (TOPROL-XL) 25 mg 24 hr tablet Take 0.5 tablets (12.5 mg total) by mouth 1 (one) time each day. 45 each 3 01/31/2025 multivitamin,the r and minerals (VITAMINS AND MINERALS ORAL) Take by mouth. BID OMEPRAZOLE ORAL 20 mg 2 (two) times a day. 08/11/2019 pilocarpine (SALAGEN) 5 mg tablet Take 5 mg by mouth 2 times daily. predniSONE (DELTASONE) 2.5 mg tablet Take 1 tablet (2.5 mg total) by mouth 1 (one) time each day. tamsulosin (FLOMAX) 0.4 mg 24 hr capsule Take 2 capsules (0.8 mg total) by mouth 1 (one) time each day with breakfast. Capsules should be taken 30 minutes following the same meal each day. documented as of this encounter Discharge Disposition Disposition Code Departure Means Destination Home or Self Care documented in this encounter Procedure Notes * Yann Velasquez MD - 03/06/2025 8:27 AM EDT Interventional Radiology Preprocedure Note: Patient Name: Jose M Brock Procedure Date: Today Indication for procedure: There were no encounter diagnoses. Planned Procedure: Please see associated order History and Physical Update ( H&P completed within the previous thirty days ) I personally reviewed the History and Physical, interviewed and examined the patient prior to surgery. No changes have occurred in the patient's condition since the History and Physical was completed. Allergies: Allergies Allergen Reactions Penicillins Piperacillin-Tazobactam Liver problems Tazobactam Metformin Past Medical History: Past Medical History: Diagnosis Date Anemia DX:Anemia Carpal tunnel syndrome DX:Carpal tunnel syndrome Diabetes (CMS/HCC V24, CMS/HCC V28) DX:Diabetes (HCC) Gastritis DX:Gastritis Hemorrhoids DX:Hemorrhoids HTN (hypertension) DX:HTN (hypertension) Surgical History: Past Surgical History: Procedure Laterality Date OTHER SURGICAL HISTORY PROCEDURE: HISTORY OTHER; COMMENT: cholecystomy OTHER SURGICAL HISTORY PROCEDURE: HISTORY OTHER; COMMENT: hand surgery OTHER SURGICAL HISTORY PROCEDURE: HISTORY OTHER; COMMENT: shoulder surgery OTHER SURGICAL HISTORY PROCEDURE: HISTORY OTHER; COMMENT: lumbar discectomy OTHER SURGICAL HISTORY PROCEDURE: HISTORY OTHER; COMMENT: hemorrhoidectomy OTHER SURGICAL HISTORY PROCEDURE: HISTORY OTHER; COMMENT: colonoscopy SPINE SURGERY lumbar fusion with [facility] Social History: Social History Socioeconomic History Marital status: Spouse name: Not on file Number of children: Not on file Years of education: Not on file Highest education level: Not on file Occupational History Not on file Tobacco Use Smoking status: Former Current packs/day: 0.00 Types: Cigarettes Quit date: 06/19/1962 Years since quittin.7 Smokeless tobacco: Never Substance and Sexual Activity Alcohol use: No Drug use: Never Sexual activity: Not on file Other Topics Concern Not on file Social History Narrative Not on file Medications: Current Outpatient Medications on File Prior to Encounter Medication Sig Dispense Refill atorvastatin (LIPITOR) 80 mg tablet Take 0.5 tablets by mouth at bedtime. calcium amino acid chelate 200 mg calcium tablet Sig - Route: Take 800 mg by mouth 2 Times Daily. -Oral cholecalciferol (VITAMIN D-3) 50 mcg (2,000 unit) tablet Take 1 tablet (2,000 Units total) by mouth1 (one) time each day. cyclobenzaprine (FLEXERIL) 10 mg tablet Take 10 mg by mouth at bedtime. furosemide (LASIX) 20 mg tablet TAKE 1 TABLET BY MOUTH DAILY 90 tablet 1 gabapentin (NEURONTIN) 600 mg tablet Take 1 Tablet by mouth 3 times daily. hydroxychloroquine (PLAQUENIL) 200 mg tablet Take 1 tablet (200 mg total) by mouth 1 (one) time each day. L. acidophilus/L. bifidus (LACTOBACILLUS ACIDOPH-L. BIFID ORAL) 1 tablet 1 (one) time each day. leflunomide (ARAVA) 10 mg tablet Take 1 tablet (10 mg total) by mouth 1 (one) time each day. losartan (COZAAR) 100 mg tablet Take 1 tablet (100 mg total) by mouth 1 (one) time each day. 90 tablet 1 metoprolol succinate (TOPROL-XL) 25 mg 24 hr tablet Take 0.5 tablets (12.5 mg total) by mouth 1 (one) time each day. 45 each 3 multivitamin,ther and minerals (VITAMINS AND MINERALS ORAL) Take by mouth. BID OMEPRAZOLE ORAL 20 mg 2 (two) times a day. pilocarpine (SALAGEN) 5 mg tablet Take 5 mg by mouth 2 times daily. predniSONE (DELTASONE) 2.5 mg tablet Take 1 tablet (2.5 mg total) by mouth 1 (one) time each day. tamsulosin (FLOMAX) 0.4 mg 24 hr capsule Take 2 capsules (0.8 mg total) by mouth 1 (one) time each day with breakfast. Capsules should be taken 30 minutes following the same meal each day. acetaminophen (TYLENOL 8 HOUR) 650 mg 8 hr tablet Take 650 mg by mouth every 8 hours as needed. aspirin 81 mg EC tablet Take 1 tablet (81 mg total) by mouth 1 (one) time each day. azithromycin (ZITHROMAX) 500 mg tablet Take 1 tablet 30-60 minutes prior to dental procedures. 1 each 4 buprenorphine (BUTRANS) 20 mcg/hour Place 1 patch on the skin 1 (one) time per week. dextrose (GLUCOSE ORAL) Take 4 mg by mouth if needed. DILUENT, INSULIN ASPART NO.1 INJ Inject into the skin. pump docusate sodium (COLACE) 100 mg capsule Take 1 capsule (100 mg total) by mouth 2 (two) times a day if needed for constipation. insulin aspart (NovoLOG) 100 unit/mL injection Sliding scale insulin glargine (LANTUS) 100 unit/mL injection Inject 19 Units under the skin at bedtime. PRN pump No current facility-administered medications on file prior to encounter. Directed physical examination: Visit Vitals BP (!) 160/87 Pulse 94 Temp 36.6 ??C (97.8 ??F) Resp 16 HEENT Assessment: Airway patent Cardiovascular Assessment: Monitored rhythm observed. Adequate pulses. Pulmonary Assessment: NARD Abdomen: Soft NT Musculoskeletal Assessment: At baseline Mallampati: 2 ASA Score: 2 Relevant Labs: Lab Results Component Value Date CREATININE 1.08 02/27/2025 EGFR 67 02/27/2025 INR 0.9 02/27/2025 Immediate reassessment prior to sedation: Unchanged from baseline The patient or designee has a signed a consent that is available in the patient record. Yann Velasquez MD * Syd Newsome RN - 03/06/2025 8:00 AM EDT Dc by wc with son. In nad. Dcd intact to low back. Verbalizes readiness for dc. And understanding of dc instructions. Walks with cane. Menating at baseline. documented in this encounter Plan of Treatment Upcoming Encounters Date Type Department Care Team (Late st Contact Info) Description 03/27/2025 9:10 AM EDT Office Visit [facility] [address] [place] [address] [address] [place] [address] Emmie Pickens NP [address] [place] [address] [address] [place] [id number] documented as of this encounter Procedures Procedure Name Priority Date/Time Associated Diagnosis Comments IR SACRAL AUG INJ 2+ NDLS PERC BILAT Routine 03/06/2025 9:54 AM EDT Spondylosis of lumbosacral region without myelopathy or radiculopathy documented in this encounter Results * IR Sacral Aug Inj 2+ Ndls Perc bilat (03/06/2025 9:54 AM EDT) Anatomical Region Laterality Modality Interventional R adiology 03/06/2025 12:5 8 PM EDT Impressions 03/06/2025 1:07 PM EDT Impression: Bilateral sacroplasty. -------- FINAL REPORT -------- Dictated By: Yann Velasquez Dictated Date: 03/06/2025 12:58 ET Assigned Physician: Yann Velasquez Reviewed and Electronically Signed By: Yann Velasquez Signed Date: 03/06/2025 13:07 ET Workstation ID: [id number] Transcribed By: Self Edit Transcribed Date: 03/06/2025 12:58 ET Narrative 03/06/2025 1:07 PM EDT Sacruplasty INDICATION: Bilateral sacral fractures with severe 8/10 pain with standing. Patient likely with multifactorial back pain history of previous extensive lumbar fusion surgery. COMPARISON: MRI 02/19/2025 Informed consent was obtained from the patient prior to the procedure. Patient held his ASPIRIN for 5 days prior to the procedure. Patient was placed prone on the imaging table and prepped and draped in the usual and sterile fashion. Moderate sedation: Under direct physician supervision, the patient was moderately sedated with 200 mcg FENTANYL and 3.5 mg VERSED IV for a total of minutes. An independent interventional radiology nurse observer trained in conscious sedation provided continuous physiologic monitoring of the patient during the entirety of the procedure through recovery. Local anesthesia with 1% LIDOCAINE, 0.25 BUPIVACAINE and 600 mg of intravenous CLINDAMYCIN was provided. Utilizing fluoroscopic guidance predominantly AP oblique and lateral imaging, safe access was determined in the mid right sacrum. Small stab incision was made with a #11 blade scalpel. The initial trocar was advanced and bony contact was made. After ensuring appropriate orientation, the catheter was carefully advanced through the sacrum taking care to avoid the neural foramina and staying medial to the sacroiliac joint. Upon appropriate positioning a screw was used to create a slightly larger channel cranially. Slowly approximately 6 mL of methylmethacrylate was instilled utilizing pullback technique. Administration was performed during continuous fluoroscopic visualization. Eventually the initial trocar was removed and hemostasis was achieved. Attention was then turned to the left side and safest access was determined in the mid left sacrum. Small stab incision was made with a #11 blade scalpel. Initial trocar was advanced and bony contact was made. After insuring appropriate orientation, the catheter was carefully advanced cranially through the sacrum taking care to avoid the neural foramina and medial to the sacroiliac joint. Upon appropriate positioning screw was utilized to create a slightly larger channel cranially. Slowly approximately 5 mL of methyl methacrylate was instilled utilizing pullback technique. Administration was performed during continuous fluoroscopic visualization. Ultimately the trocar was removed and hemostasis was achieved. Throughout the procedure the patient was assessed and noted to be without significant pain tolerating the procedure well. Ultimately the patient was returned to his stretcher after an adequate time to allow the cement to cure. The patient was then transported to the recovery unit where he remained in good condition. Procedure Note Yann Velasquez MD - 03/06/2025 Sacruplasty INDICATION: Bilateral sacral fractures with severe 8/10 pain withstanding. Patient likely with multifactorial back pain history ofprevious extensive lumbar fusion surgery. COMPARISON: MRI 02/19/2025 Informed consent was obtained from the patient prior to the procedure.Patient held his ASPIRIN for 5 days prior to the procedure. Patient wasplaced prone on the imaging table and prepped and draped in the usual andsterile fashion. Moderate sedation: Under direct physician supervision, the patient wasmoderately sedated with 200 mcg FENTANYL and 3.5 mg VERSED IV for a totalof minutes. An independent interventional radiology nurse observer trainedin conscious sedation provided continuous physiologic monitoring of thepatient during the entirety of the procedure through recovery. Local anesthesia with 1% LIDOCAINE, 0.25 BUPIVACAINE and 600 mg ofintravenous CLINDAMYCIN was provided. Utilizing fluoroscopic guidance predominantly AP oblique and lateralimaging, safe access was determined in the mid right sacrum. Small stabincision was made with a #11 blade scalpel. The initial trocar wasadvanced and bony contact was made. After ensuring appropriateorientation, the catheter was carefully advanced through the sacrum takingcare to avoid the neural foramina and staying medial to the sacroiliacjoint. Upon appropriate positioning a screw was used to create a slightlylarger channel cranially. Slowly approximately 6 mL of methylmethacrylatewas instilled utilizing pullback technique. Administration was performedduring continuous fluoroscopic visualization. Eventually the initialtrocar was removed and hemostasis was achieved. Attention was then turned to the left side and safest access wasdetermined in the mid left sacrum. Small stab incision was made with a#11 blade scalpel. Initial trocar was advanced and bony contact was made.After insuring appropriate orientation, the catheter was carefullyadvanced cranially through the sacrum taking care to avoid the neuralforamina and medial to the sacroiliac joint. Upon appropriate positioningscrew was utilized to create a slightly larger channel cranially. Slowlyapproximately 5 mL of methyl methacrylate was instilled utilizing pullbacktechnique. Administration was performed during continuous fluoroscopicvisualization. Ultimately the trocar was removed and hemostasis wasachieved. Throughout the procedure the patient was assessed and noted to be withoutsignificant pain tolerating the procedure well. Ultimately the patientwas returned to his stretcher after an adequate time to allow the cementto cure. The patient was then transported to the recovery unit where heremained in good condition. IMPRESSION: Impression: Bilateral sacroplasty. -------- FINAL REPORT -------- Dictated By: Yann Velasquez Dictated Date: 03/06/2025 12:58 ET Assigned Physician: Yann Velasquez Reviewed and Electronically Signed By: Yann Velasquez Signed Date: 03/06/2025 13:07 ET Workstation ID: [id number] Transcribed By: Self Edit Transcribed Date: 03/06/2025 12:58 ET us Katherin Sargent MD IMG IR PROCEDURES Final Result documented in this encounter Visit Diagnoses Diagnosis Spondylosis of lumbosacral region without myelopathy or radiculopathy documented in this encounter Administered Medications Inactive Administered Medications - up to 3 most recent administrations Medication Order MAR Action Action Date Dose Rate Site bupivacaine (PF) (MARCAINE) 0.25 % injection As needed, Starting on Radha 03/06/25 at 0940, Intraprocedure Given 03/06/2025 9:40 AM EDT 7 mL clindamycin (CLEOCIN) 600 mg/50 mL IVPB Administer over 30 Minutes, Continuous PRN, Starting on Radha 03/06/25 at 0858, Intraprocedure New Bag 03/06/2025 8:58 AM EDT 600 mg fentaNYL (PF) (SUBLIMAZE) injection intravenous, As needed, Starting on Radha 03/06/25 at 0841, Intraprocedure Given 03/06/2025 9:19 AM EDT 50 mcg Given 03/06/2025 9:05 AM EDT 25 mcg Given 03/06/2025 9:00 AM EDT 25 mcg lidocaine with sodium bicarbonate 1 % injection As needed, Starting on Radha 03/06/25 at 0939, Intraprocedure Given 03/06/2025 9:39 AM EDT 7 mL midazolam (VERSED) injection intravenous, As needed, Starting on Radha 03/06/25 at 0841, Intraprocedure Given 03/06/2025 9:19 AM EDT 1 mg Given 03/06/2025 9:05 AM EDT 0.5 mg Given 03/06/2025 8:54 AM EDT 0.5 mg documented in this encounter Orders Discharge Count Last Ordered Date First Orde red Date DISCHARGE PATIENT 1 03/06/2025 documented in this encounter Care Teams Transplant Nurse Relationship Specialty Start Date End Date Bong Marino PA [address] [place] [address] PCP - General Physician [employer] 11/08/24 documented as of this encounter
--- NOTE | 2025-03-11 10:39 | A.OFFVIS_ITS ---
Vital Signs 03/11/25 10:40 03/11/25 10:53 Height 5 ft 7 in Weight 150 lb BMI 23.5 BP 90/46 L 80/40 L Blood Pressure Location Rt brachial Lt brachial Position Sitting Sitting Intake Visit Reasons: 1y follow up Carotid US 01/21/25 Intake Note: 1 yr follow up carotid US 01/21/25. Pt states he has dizziness even when sitting. Hx of Left CEA 02/15/2023. Pt states his main concern is with his back which he had a procedure for last week at [facility]. Accompanied by: Self / Same As Patient Allergies Penicillins Allergy (Severe, Verified 03/11/25 10:45) ITCHING-SEVERE piperacillin (From Zosyn) Allergy (Mild, Verified 03/11/25 10:45) JAUNDICE tazobactam (From Zosyn) Allergy (Mild, Verified 03/11/25 10:45) JAUNDICE HPI HPI 1y follow up Carotid US 01/21/25: Details: The patient is an 85-year-old male presenting with concerns of bilateral carotid artery stenosis and episodes of leg weakness and falls. The patient has a history of bilateral carotid artery stenosis, with the left carotid artery having been treated in January 2023. The right carotid artery remains stable with no significant changes noted. The patient reports episodes of leg weakness leading to falls, occurring two to three times. During these episodes, the patient experiences a sensation aakash to fainting but does not lose consciousness. The patient has managed to call for assistance after these falls, indicating some level of mobility and problem- solving ability despite the incidents. [facility] Medical History Encounter for monitoring leflunomide therapy Long-term use of Plaquenil Symptomatic stenosis of left carotid artery Aortic stenosis Rheumatoid arthritis Carpal tunnel syndrome Former smoker Insulin pump in place Diabetes Elevated cholesterol CAD (coronary artery disease) HTN (hypertension) Surgical History History of left-sided carotid endarterectomy (02/15/23) Hx of carpal tunnel repair Hx of cardiac catheterization History of shoulder surgery History of cholecystectomy History of hand surgery Hx of hemorrhoidectomy Hx of lumbar discectomy H/O colonoscopy Family History Father Heart attack Heart disease Mother Pacemaker Cataracts, bilateral Sister Heart problem Heart valve replaced Arthritis Brother Heart attack Brother Rectal cancer Sister History of modified radical mastectomy of right breast Social History Household Members: None Housing: House Are you a primary hearing healthcare practitioner to a significant other at home: No Do you presently have visiting nurse or other home services: No Alcohol intake: never Patient Tobacco Use Status: Former Tobacco user Tobacco use type: Cigarette Years Smoked: 5 YEARS Advance Directives Date on File: 02/07/23 service: No Current occupational status: employed Current occupation: [employer], rt handed Review of Systems Const All systems reviewed & are unremarkable except as noted in HPI and below Reports no additional complaints ENT Reports Normal hearing present Card Denies chest pain, Denies chest pain at rest, Denies chest pain with activity and Denies pedal edema Resp Denies cough GI Denies abdominal pain Musc Denies abnormal gait, Denies muscle cramps and Denies radiating pain into limb Skin/Breast Denies skin ulcer and Denies wounds Neuro Reports Normal hearing present and Denies abnormal gait Psych Reports no additional complaints Physical Exam Vital Signs: Last Vital Signs BP 80/40 L 03/11/25 10:53 BMI result Body Mass Index 23.5 Const General: cooperative, healthy appearing and comfortable Orientation/consciousness: oriented to person, oriented to place and oriented to time HEENT Head: Yes normal to inspection Neck Neck: Yes normal visual inspection Carotids: no bruits Chest Chest palpation & inspection: normal inspection of the chest Resp Effort & Inspection: normal respiratory effort and able to speak in complete sentences Auscultation: clear to auscultation bilaterally, no crackles, no rales, no rhonchi and no wheezes Cardio Rate: regular rate Rhythm: regular rhythm Heart sounds: S1 normal heart sound present and S2 normal heart sound present Bruits: no carotid bruits Peripheral pulses: Peripheral pulses 2+ throughout GI Inspection: Yes normal to inspection Skin Wounds: no wounds Hair: normal Neuro General: oriented to person, oriented to place and oriented to time Cranial nerves: Yes CN's II-XII intact bilaterally and Yes Normal hearing prese nt Cognition (Neuro): normal cognition Motor exam (neuro): 5/5 motor strength present throughout Extrem Other: venous exam: No significant superficial varicosities or spider telangiectasias, minimal edema General: No clubbing, No cyanosis and No edema Psych Appearance: grossly normal Mental Status: mental status grossly normal Speech and movement: Normal speech and movement present Results Reviewed Results Reviewed: Carotid testing dated 01/21/2025 demonstrates bilateral 50-69% stenosis with a peak systolic on the right of 143 and on the left of 132. I do think this is a bit of an over estimation and would actually place these both at 0-49% stenosis. Written report and images were reviewed. Assessment & Plan Assessment & Plan (1) Bilateral carotid artery stenosis: Comment: 02/15/2023 - left carotid endarterectomy Code(s): I65.23 - Occlusion and stenosis of bilateral carotid arteries Category: Medical Plan: In short patient has asymptomatic carotid disease. We have reviewed signs and symptoms of a stroke. We also discussed risk factor modification inclusive a healthy diet low in cholesterol. The patient will follow up with us with surveillance ultrasound of the carotids 1 year. Should there be any changes or signs or symptoms of a stroke we will be happy to see them back sooner. Thank you for allowing us to participate in this patient's care. If there are any questions or concerns please do not hesitate to contact us. Orders: Orders US carotid duplex BI 1 Year I65.23 - Occlusion and stenosis of bilateral carotid arteries Coding Level of Care Code Est Pt Level 4 (22296) Diagnoses Bilateral carotid artery stenosis I65.23
[2025-03-11 10:40] VITALS: BP 90/46; BMI 23.5
[2025-03-11 10:53] VITALS: BP 80/40
--- OUTSIDE RECORDS SUMMARY | 2025-03-11 13:00 | XMS_ITS | Encounter Summary ---
Author Organization [facility] Address [address] [place] [address] Care Team Providers Care [employer] Maker Name Role Phone Bong Marino Primary Care Provider [phone] Encounter Details Date Type Department Care Team (Late st Contact Info) Description 07/29/[address] [facility] - Main Lab [address] [facility] [place] [address] Trina Brock MD [address] [address] Type 2 diabetes mellitus without complications (CMS/HCC V24, CMS/HCC V28); Atherosclerotic heart disease of [place] coronary artery without angina pectoris; Benign prostatic [...] Description 03/27/2025 9:10 AM EDT Office Visit [facility] [address] [place] [address] Emmie Pickens, PATTI [address] [place] [address] [address] [place] [address] documented as of this encounter Visit Diagnoses Diagnosis Type 2 diabetes mellitus without complications ([facility] V24, [facility] V28) Atherosclerotic heart disease of [place] coronary artery without angina pectoris Benign prostatic hyperplasia without lower urinary tract symptoms Occlusion and stenosis of left vertebral artery documented in this encounter Care Teams [employer] Maker Relationship Specialty Start Date End Date Bong Marino PA [address] [place] [address] PCP - General Physician Machine Fitter 11/08/24 documented as of this encounter
--- OUTSIDE RECORDS SUMMARY | 2025-03-11 13:00 | XMS_ITS | Clinical Summary ---
Author Organization [facility] Address [address] [place] [address] Phone Care Team Providers Care Quality Improvement Specialist Name Role Phone Bong Marino Primary Care Provider [phone] Allergies Active Allergy Reactions Criticality Noted Date Comments Metformin 02/24/2025 Penicillins High 08/12/2024 Piperacillin-Tazobactam High 09/02/2022 Liver problems Tazobactam High 08/12/2024 Medications furosemide (LASIX) 20 mg tablet TAKE 1 TABLET BY MOUTH DAILY 90 tablet 1 06/03/20 24 Active aspirin 81 mg EC tablet Take 1 tablet (81 mg total) by mouth 1 (one) time each day. 10/09/19 24 Active losartan (COZAAR) 100 mg tablet Take 1 tablet (100 mg total) by mouth 1 (one) time each day. 90 tablet 1 08/09/19 25 Active cholecalcifero l (VITAMIN D-3) 50 mcg (2,000 unit) tablet Take 1 tablet (2,000 Units total) by mouth 1 (one) time each day. Active calcium amino acid chelate 200 mg calcium tablet Sig - Route: Take 800 mg by mouth 2 Times Daily. - Oral Active DILUENT, INSULIN ASPART NO.1 INJ Inject into the skin. pump Active acetaminophen (TYLENOL 8 HOUR) 650 mg 8 hr tablet Take 650 mg by mouth every 8 hours as needed. Active multivitamin,t her and minerals (VITAMINS AND MINERALS ORAL) Take by mouth. BID Active cyclobenzaprin e (FLEXERIL) 10 mg tablet Take 10 mg by mouth at bedtime. 08/11/19 Active gabapentin (NEURONTIN) 600 mg tablet Take 1 Tablet by mouth 3 times daily. 04/07/20 Active OMEPRAZOLE ORAL 20 mg 2 (two) times a day. 08/11/19 Active pilocarpine (SALAGEN) 5 mg tablet Take 5 mg by mouth 2 times daily. Active L. acidophilus/L. bifidus (LACTOBACILLUS ACIDOPH-L. BIFID ORAL) 1 tablet 1 (one) time each day. Active hydroxychloroq uine (PLAQUENIL) 200 mg tablet Take 1 tablet [...] aspart (NovoLOG) 100 unit/mL injection Sliding scale 06/03/20 Active docusate sodium (COLACE) 100 mg capsule Take 1 capsule (100 mg total) by mouth 2 (two) times a day if needed for constipation. Active metoprolol succinate (TOPROL-XL) 25 mg 24 hr tablet Take 0.5 tablets (12.5 mg total) by mouth 1 (one) time each day. 45 each 3 02/01/20 25 Active buprenorphine (BUTRANS) 20 mcg/hour Place 1 patch on the skin 1 (one) time per week. Active leflunomide (ARAVA) 10 mg tablet Take 1 tablet (10 mg total) by mouth 1 (one) time each day. Active predniSONE (DELTASONE) 2.5 mg tablet Take 1 tablet (2.5 mg total) by mouth 1 (one) time each day. Active azithromycin (ZITHROMAX) 500 mg tablet Take 1 tablet 30-60 minutes prior to dental procedures. 1 each 4 03/03/20 Active predniSONE (DELTASONE) 5 mg tablet Take 1 tablet (5 mg total) by mouth 1 (one) time each day. 025 Discontinued(Pr escriber Discontinued) amLODIPine (NORVASC) 2.5 mg tablet Take 1 tablet (2.5 mg total) by mouth 1 (one) time each day. 025 Discontinued(Pr escriber Discontinued) azithromycin (ZITHROMAX) 500 mg tablet Take 1 tablet (500 mg total) by mouth. 01/09/20 025 Discontinued calcitonin salmon (MIACALCIN) 200 unit/actuation nasal spray Administer into affected nostril(s). 12/19/19 025 Discontinued Active Problems Problem Noted Date Diagnosed Date Lumbosacral spondylosis 01/28/2025 Assessment & Plan (01/28/2025 1:14 PM EDT): Mr. Shepherd has a long history of back pain with stenosis and degenerative changes leading to multiple prior surgeries and is now fused from L2-S1. He does have notable stenosis at L1-2, the adjacent segment to the long fusion construct but he is not describing symptoms of claudication and has no pain in the hips and thighs. He demonstrates his pain and is tender at the lumbosacral junction and buttocks and I believe this is actually from sacral insufficiency fractures seen on MRI. He is on chronic prednisone which will affect his bone quality. He has had lumbar cortisone injections without benefit. The buprenorphine patch has helped him sleep but he cannot continue on like this. I recommending a sacroplasty through [facility] which I believe will relieve the symptoms. We discussed the details, risks and benefits and plan to follow-up with him after the procedure to see how things went. History of transcatheter aortic valve replacemen t (TAVR) 11/08/2024 Assessment & Plan (02/24/2025 11:01 AM EDT): Patient has history of severe aortic stenosis s/p TAVR. He continues on aspirin. Last echocardiogram is stable. He understands endocarditis prophylaxis. He has a PCN allergy. He takes azithromycin prior to dental cleanings and he states that he has this at home. Assessment & Plan (11/08/2024 11:05 AM EDT): Status post TAVR at 1 year with a normally functioning valve on echocardiogram from last year. Symptomatically he is doing extremely well. Would plan to repeat echocardiogram for 1 year post study. Continue aspirin on indefinite basis. He is aware of the need for prophylactic antibiotics prior to invasive procedures. He will continue to follow with Dr. Grider for his ongoing care Hypertension 08/12/2024 Assessment & Plan (02/24/2025 11:01 AM EDT): Patient's BP today 110/60. He complains of dizziness. He will stop amlodipine and we will arrange for a 24 hr groundwater monitoring technician today. We will assess for any significant bradycardia or cardiac arrhythmias which could cause dizziness. CAD (coronary artery disease) 02/13/2023 Assessment & Plan (02/24/2025 11:01 AM EDT): Patient has history of coronary artery disease [...] or spelling errors that may have occurred HLD (hyperlipidemia) 02/13/2023 Assessment & Plan (02/24/2025 11:01 AM EDT): Patient continues on atorvastatin 40 mg once a day. Last LDL cholesterol was 53. This is at goal. Resolved Problems Problem Noted Date Diagnosed Date Resolved Date Nonrheumatic aortic valve stenosis 08/23/2024 11/08/2024 Assessment & Plan (08/23/2024 12:45 PM EST): Patient is status post TAVR aortic valve replacement. Stable he is due for a 1 year follow-up echo in the next few months. And a follow-up TAVR appointment needs to continue endocarditis prophylaxis Rales 08/12/2024 02/24/2025 SOB (shortness of breath) on exertion 08/12/2024 02/24/2025 Bradycardia 02/13/2023 02/24/2025 Dizziness 02/13/2023 02/24/2025 Exertional chest pain 09/21/20202024 Overview (08/12/2024): Last Assessment & Plan: Patient with no complaints of angina. Diagnostic catheterization in the past that shown mild obstructive disease Encounters Date Type Department Care Team Description 03/06/2025 6:58 AM EDT - 03/06/2025 11:59 PM EDT Hospital Encounter [facility] Interventional Radiology [address] [place] [phone] Spondylosis of lumbosacral region without myelopathy or radiculopathy Discharge Disposition: Home or Self Care 03/03/2025 Telephone [facility] Cardiology [facility] [address] [place] [address] [place] [address] Dejuan Grider MD 02/27/2025 Telephone [facility] [address] [place] [address] [place] [address] Dejuan Grider MD 02/24/2025 11:10 AM EDT Office Visit [facility] Cardiology [facility] [address] [place] [address] [place] [address] Emmie Pickens NP Coronary artery disease involving sleetmute coronary artery of sleetmute heart without angina pectoris (Primary Dx); Primary hypertension; Mixed hyperlipidemia; History of transcatheter aortic valve replacement (TAVR); Postural dizziness with presyncope; Dizziness 02/24/2025 8:30 AM EDT Ancillary Procedure [facility] Cardiology [facility] [address] [place] [address] History of transcatheter aortic valve replacement (TAVR); Dizziness; Postural dizziness with presyncope 02/24/2025 Telephone [facility] [address] [place] [phone] Emmie Pickens NP 02/19/2025 8:18 AM EDT - 02/19/2025 11:59 PM EDT Hospital Encounter [facility] MRI [address] [place] [phone] Spondylosis of lumbosacral region without myelopathy or radiculopathy Discharge Disposition: Home or Self Care 02/10/2025 Telephone [facility] [address] [place] [phone] Saida Logankatmaricel [place] 01/31/2025 Telephone [facility] [address] [place] [phone] Dejuan Grider MD 01/28/2025 11:30 AM EDT Consult Neurosurgery [facility] [address] [place] [phone] Katherin Sargent MD Spondylosis of lumbosacral region without myelopathy or radiculopathy (Primary Dx) 01/20/2025 2:30 PM EDT Ancillary Procedure [facility] [address] [place] [phone] Aortic valve stenosis, etiology of cardiac valve disease unspecified 12/31/2024 Telephone [facility] [address] [place] [address] Dejuan Grider MD from Last 3 Months Surgical History Surgery [...] COMMENT: colonoscopy SPINE SURGERY lumbar fusion with [facility] [employer] [facility] History Medical History Date Comments Carpal [...] Cigarettes Q uit: 06/19/1962 Smokeless Tobacco: Never Tobacco Cessation:Counseling Given: Not Answered Alcohol Use Standard Drinks/Week Comments No 0 [...] EDT Inhaled Oxygen Concentration - - Weight 63.5 kg (140 lb) 02/27/2025 8:20 AM EDT Height 162.6 cm (5' 4 ) 03/06/2025 7:08 AM EDT Body Mass Index 24.03 02/27/2025 8:20 AM EDT Plan of Treatment Upcoming Encounters Date Type Department Care Team (Late st Contact Info) Description 03/27/2025 9:10 AM EDT Office Visit [facility] [address] [place] [phone] Emmie Pickens NP [address] [place] [address] [place] [phone] Health Maintenance Due Date Last Done Comments Diabetes: Annual Foot Exam 1950 Diabetes: Annual Retina Eye Exam 1950 Falls Risk Assessment 05/28/2022 Social Influencers of Health Screening 05/28/2022 Medicare Annual Wellness Visit 08/01/2023 08/01/2022 Depression Screening 06/19/2024 Influenza Vaccine (#1) 2025 , 03/14/2024, 04/21/2023, Additional history exists Diabetes: Blood Sugar Control Test (HGBA1C) 07/24/2025 01/21/2025, 04/10/2024, 12/12/2023 Hypertension/CHF/CAD Annual BMP Blood Test 02/27/2026 02/27/2025, 10/25/2024, 07/23/2024, Additional history exists Cholesterol Screening (Lipid Panel) 07/30/2026 07/30/2021 DTaP,Tdap,and Td Vaccines (6 - Td or Tdap) 08/16/2034 08/16/2024, 03/11/2022, 10/09/2018, Additional history exists Pneumococcal Vaccine: 50+ Years Completed 11/12/2014, 11/12/2014, 06/19/2014, Additional history exists Zoster Vaccines Completed 09/27/2021, 09/2019, 10/08/2010, Additional history exists COVID-19 Vaccine Completed 12/31/2024, , 04/21/2023, Additional history exists RSV Immunization Adult Patients Completed 12/31/2024, 08/14/2024 HIB Vaccines Aged Out No longer [...] on patient's age to complete this topic Medical Devices Implanted Type Area Financial Consultant Device Identifier Shelf Expiration Date Model / Serial / Lot Kyphon Xpede Bone Cement - [id number] Implanted:Qty: 1 on 03/06/2025 by Yann Velasquez MD at [facility] Bone Cement Right: Sacrum [employer] KYPHON [id number] 12/16/2026 CX01B / / [id number] [employer] Xpede Bone Cement - [id number] Implanted:Qty: 1 on 03/06/2025 by Yann Velasquez MD at [facility] [employer] Left: Sacrum [employer] [id number] 07/19/2027 CX01B / / [id number] Procedures Procedure Name Priority Date/Time Associated Diagnosis Comments IR SACRAL AUG INJ 2+ NDLS PERC BILAT Routine 03/06/2025 9:54 AM EDT Spondylosis of lumbosacral region without myelopathy or radiculopathy PROTHROMBIN TIME WITH INR STAT 02/27/2025 8:24 AM EDT BASIC METABOLIC PANEL STAT 02/27/2025 8:24 AM EDT COMPLETE BLOOD COUNT STAT 02/27/2025 8:24 AM EDT CARDIAC HOLTER MONITOR (REPORT GENERATED IN HOUSE) Routine 02/24/2025 12:44 PM EDT History of transcatheter aortic valve replacement (TAVR) Dizziness Postural dizziness with presyncope MR PELVIS WO CONTRAST Routine 02/19/2025 10:58 AM EDT Spondylosis of lumbosacral region without myelopathy or radiculopathy TRANSTHORACIC ECHOCARDIOGRAM (TTE) COMPLETE Routine 01/20/2025 2:51 PM EDT Aortic valve stenosis, etiology of cardiac valve disease unspecified EXTERNAL MRI REPORT Routine 12/16/2024 2 :13 PM EDT HEMOGLOBIN A1C Routine 12/12/2023 LIPID PANEL Routine 07/30/2021 from Last 3 Months or Most Recently Relevant to Health Maintenance Results * IR Sacral Aug Inj 2+ [...] Signed Date: 03/06/2025 13:07 ET Workstation ID: [id number] Transcribed By: Self Edit Transcribed Date: 03/06/2025 [...] Signed Date: 03/06/2025 13:07 ET Workstation ID: [id number] Transcribed By: Self Edit Transcribed Date: 03/06/2025 12:58 ET us Katherin Sargent MD [facility] IR PROCEDURES Final Result * Protime-INR (02/27/2025 8:24 AM EDT) Protime 11.9 10.6 - 13.9 sec LAB COAGULATION METHOD 02/27/2025 8:51 AM EDT [facility] INR 0.9 LAB COAGULATION METHOD 02/27/2025 8:51 AM EDT [facility] Blood Venous blood specimen / Unknown Venipuncture / Unknown 02/27/2025 8:24 AM EDT 02/27/2025 8:42 AM EDT us Yann Velasquez MD LAB BLOOD ORDERABLES Final Resul t [facility] [address] [place] [address], * (ABNORMAL) CBC (02/27/2025 8:24 AM EDT) WBC 8.9 4.8 - 10.8 K/mcL LAB HEMETOLOGY METHOD [facility] RBC 4.10(L) 4.50 - 5.50 M/mcL LAB HEMETOLOGY METHOD 02/27/2025 8:[facility] Hemoglobin 11.2(L) 13.5 - 17.5 g/dL LAB HEMETOLOGY METHOD 02/27/2025 8:46 AM [facility] Hematocrit 34.8(L) 42.0 - 54.0 % LAB HEMETOLOGY METHOD 02/27/2025 8:46 AM EDT [facility] MCV 85.3 79.0 - 98.0 FL LAB HEMETOLOGY METHOD 02/27/2025 8:46 AM EDT [facility] MCH 27.5 27.0 - 32.0 pcg LAB HEMETOLOGY METHOD 02/27/2025 8:46 AM [facility] MCHC 32.2 32.0 - 37.0 g/dL LAB HEMETOLOGY METHOD 02/27/2025 8:46 [facility] RDW 14.9 11.0 - 15.0 % LAB HEMETOLOGY METHOD 02/27/2025 8:46 AM EDT [facility] Platelets 164 130 - 400 K/mcL LAB HEMETOLOGY METHOD 02/27/2025 8:46 AM EDT [facility] MPV 9.8 7.0 - 11.0 FL LAB HEMETOLOGY METHOD 02/27/2025 8:46 AM EDT [facility] NRBC 0.0 <1.0 % LAB HEMETOLOGY METHOD 02/27/2025 8:46 AM EDT [facility] NRBC Absolute 0.00 <0.10 K/mcL [facility] 02/27/2025 8:46 AM T [facility] Blood Venous blood specimen / Unknown Venipuncture / Unknown 02/27/2025 8:24 AM EDT 02/27/2025 8:42 AM EDT Yann Velasquez MD LAB BLOOD ORDERABLES Final Resul t [facility] [address] [place] [address], * (ABNORMAL) Basic metabolic panel (02/27/2025 8:24 AM EDT) Sodium 140 133 - 145 mmol/L LAB CHEMISTRY METHOD 02/27/2025 9:07 AM [facility] Potassium 3.4(L) 3.5 - 5.5 mmol/L LAB CHEMISTRY METHOD 02/27/2025 9:07 AM [facility] Chloride 108 96 - 110 mmol/L LAB CHEMISTRY METHOD 02/27/2025 9:07 AM [facility] CO2 27 21 - 32 mmol/L LAB CHEMISTRY METHOD 02/27/2025 9:07 AM T [facility] Anion Gap 5 3 - 11 LAB CHEMISTRY METHOD 02/27/2025 9:07 AM EDT [facility] Glucose 127(H) 70 - 100 mg/dL LAB CHEMISTRY METHOD 02/27/2025 9:07 AM [facility] BUN 20 5 - 25 mg/dL LAB CHEMISTRY METHOD 02/27/2025 9:07 AM [facility] Creatinine 1.08 0.70 - 1.30 mg/dL LAB CHEMISTRY METHOD 02/27/2025 9:07 [facility] eGFR 67 >=60 mL/min/1. 73m2 LAB CHEMISTRY METHOD 02/27/2025 9:07 AM [facility] Comment:Calculation based on the Chronic Kidney Disease Epidemiology Collaboration (CKD-EPI) equation refit without adjustment for race. BUN/Creatinine Ratio 18.5 LAB CHEMISTRY METHOD 02/27/2025 9:07 AM [facility] Calcium 7.9(L) 8.5 - 10.5 mg/dL LAB CHEMISTRY METHOD 02/27/2025 9:07 AM T [facility] Blood Venous blood specimen / Unknown Venipuncture / Unknown 02/27/2025 8:24 AM EDT 02/27/2025 8:42 AM EDT us Yann Velasquez MD LAB BLOOD ORDERABLES Final Resul t [facility] [address] [place] [address], * CARDIAC HOLTER MONITOR (REPORT GENERATED IN HOUSE) (02/24/2025 12:44 PM EDT) Anatomical Region Laterality Modality Cardiac Diagnost ic Narrative 03/06/2025 1:39 PM EDT [facility]PART[facility] [address] [address] TEL: FAX: Type of test: 24 hour Holter Monitor Date of test: 02/24/25 Ordering provider: Emmie Pickens NP Reason for Test: Dizziness [facility] [employer] Findings: 1: Normal Sinus Rhythm with brief periods of Sinus Tachycardia. 2: Heart rate range was 61- 120 bpm with an average of 82 bpm. Total time in Sinus Tachycardia was 2 hrs 1 min. 3: Occasional PACs with a few atrial pairs and one 3-beat atrial run. Rare PVCs with one couplet. 4: No pauses noted. Longest R-R 1.2 sec. 5: No diary returned for heart rate correlation. Impression: No arrhythmias that would be responsible for complaints of dizziness or lightheadedness Dejuan Grider MD FAC FACP us Emmie Pickens NP CV CARDIAC SERVICES PROCEDUR ES Final Result * MR Pelvis wo Contrast (02/19/2025 10:58 AM EDT) Anatomical Region Laterality Modality Pelvis, Body Magnetic Resonan ce 02/20/2025 3:20 AM EDT Impressions 02/20/2025 3:36 AM EDT 1. Bilateral sacral fractures 2. Fracture involving the left iliac bone -------- FINAL REPORT -------- Dictated By: Petra Le Dictated Date: 02/20/2025 03:20 ET Assigned Physician: Petra Le Reviewed and Electronically Signed By: Petra Le Signed Date: 02/20/2025 03:36 ET Workstation ID: [id number] Transcribed By: Self Edit Transcribed Date: 02/20/2025 03:20 ET Narrative 02/20/2025 3:36 AM EDT INDICATION: Suspect sacral insufficiency fractures COMPARISON: Correlation is made with outside lumbar spine MRI dated November 2024 TECHNIQUE: Multiplanar, multisequence MRI was performed of the pelvis without intravenous contrast administration. FINDINGS: Bone: Linear T1 hypointense, STIR hyperintense signal along the sacral ala in keeping with bilateral sacral fractures. Additionally, linear T1 hypointense, STIR hyperintense signal in the left iliac bone in keeping with fracture. Postsurgical appearance along the lower lumbar spine with susceptibility artifact from hardware. Soft Tissues: Unremarkable. Diverticulosis. Bilateral common hamstring origin tendinosis. Small amount of nonspecific fluid along the iliacus muscles, bilaterally. Procedure Note Petra Le MD - 02/20/2025 INDICATION: Suspect sacral insufficiency fractures COMPARISON: Correlation is made with outside lumbar spine MRI dated November2024 TECHNIQUE: Multiplanar, multisequence MRI was performed of the pelviswithout intravenous contrast administration. FINDINGS: Bone: Linear T1 hypointense, STIR hyperintense signal along the sacralala in keeping with bilateral sacral fractures. Additionally, linear [id number], STIR hyperintense signal in the left iliac bone in keepingwith fracture. Postsurgical appearance along the lower lumbar spine withsusceptibility artifact from hardware. Soft Tissues: Unremarkable. Diverticulosis. Bilateral common hamstringorigin tendinosis. Small amount of nonspecific fluid along the iliacusmuscles, bilaterally. IMPRESSION: 1. Bilateral sacral fractures 2. Fracture involving the left iliac bone -------- FINAL REPORT -------- Dictated By: Petra Le Dictated Date: 02/20/2025 03:20 ET Assigned Physician: Petra Le Reviewed and Electronically Signed By: Petra Le Signed Date: 02/20/2025 03:36 ET Workstation ID: [id number] Transcribed By: Self Edit Transcribed Date: 02/20/2025 03:20 ET us Katherin Sargent MD IMG MRI PROCEDURES Final Result * TRANSTHORACIC ECHOCARDIOGRAM (TTE) COMPLETE (01/20/2025 2:51 PM EDT) Left Atrium Minor [place] 5.7 cm CV PACS Left Atrium Major [place] 6.1 cm CV PACS LA Area Sys (A2C) 21 cm2 CV PACS LA Area Sys (A4C) 20 cm2 CV PACS LA Volume (BP) 60 mL CV PACS RA Area 18.8 cm2 CV PACS RA 2D Volume 42 mL CV PACS AV Mean Gradient 4 mmHg CV PACS Ao VTI 25.3 cm CV PACS AV Peak Samir 1.4 m/s CV PACS AV Peak Gradient 8 mmHg CV PACS AV Area Continuity Equation 3.6 cm2 CV PACS AV Area Peak Velocity 3.3 cm2 CV PACS Ascending Aorta 3.4 cm CV PACS IVC Proximal 1.6 cm CV PACS IVC Proximal 0.5 cm CV PACS IVSD 0.9 0.6 - 1.0 cm CV PACS LVIDD 4.9 4.2 - 5.8 cm CV PACS LVOT Diameter 2.5 cm CV PACS LVOT Mean Samir 0.7 m/s CV PACS LVOT Mean Samir 0.7 m/s CV PACS LVOT Mean Grad 2 mmHg CV PACS LVOT Mean Grad 2 mmHg CV PACS LVOT Peak VTI 18.4 cm CV PACS LVOT Peak Samir 1.0 m/s CV PACS LVOT Peak Gradient 4 mmHg CV PACS LVPWD 0.9 0.6 - 1.0 cm CV PACS MV E' Tissue Velocity Lateral 3 cm/s CV PACS MV E' Tissue Velocity Septal 3 cm/s CV PACS LVOT Area 4.9 cm2 CV PACS LVOT Stroke Volume 90 mL CV PACS E Wave Deceleration Time 208 119 - 242 ms CV PACS MV Peak A Samir 1.50 m/s CV PACS MV Peak E Samir 0.87 m/s CV PACS MV Mean Gradient 5 mmHg CV PACS MV VTI 34.4 cm CV PACS Mitral Valve Max Velocity 1.7 m/s CV PACS MV Peak Gradient 12 mmHg CV PACS MV Area Continuity Equation 2.6 cm2 CV PACS PV Acceleration Time 39 ms CV PACS PV Acceleration Time 39 ms CV PACS RV Diastolic Basal Dimension 2.7 2.5 - 4.1 cm CV PACS RV S' 9 cm/s CV PACS TAPSE 24 mm CV PACS E/E' Ratio Septal 29 CV PACS E/E' Ratio Averaged 29 CV PACS Relative Wall Thickness ratio 0.37 CV PACS LVOT:AV VTI Index 0.73 CV PACS LV Mass 2D 153 g CV PACS MV VTI:LVOT VTI ratio 1.9 CV PACS AV Velocity Ratio 0.71 CV PACS E/A Ratio 0.6 CV PACS E/E' Ratio Lateral 29 CV PACS BSA 1.8 m2 CV PACS LA Volume Index (BP) 34 mL/m2 CV PACS LVIDD Index 2.74 cm/m2 CV PACS LV Mass Index 2D 85 50 - 102 g/m2 CV PACS LVOT Stroke Index 50 mL/m2 CV PACS RA 2D Volume Index 23 18 - 32 mL/m2 CV PACS TREVOR Index (VTI) 1.99 cm2/m2 CV PACS TREVOR Index (Pk Samir) 1.84 cm2/m2 CV PACS Ascending Aorta Index 1.90 cm/m2 CV PACS Anatomical Region Laterality Modality Ultrasound Narrative 01/21/2025 6:15 PM EDT Left ventricle cavity size is normal. Left ventricular systolic function is in the normal range with an ejection fraction of 65-70%. Mildly reduced global longitudinal strain at -17.9% No regional LV wall motion abnormalities noted. Left ventricle wall thickness is normal. There is Grade II (moderate) diastolic dysfunction. Evidence of elevated left atrial filling pressure Right ventricle cavity is normal. Right ventricular systolic function is normal. A 29 mm TAVR bioprosthetic aortic valve is present. Prosthetic valve appears well-seated. Trace perivalvular regurgitation Mitral valve demonstrates mild stenosis. Mitral valve with moderately thickened leaflets. Left Ventricle Left ventricle cavity size is normal. Wall thickness is normal. Systolic function is normal with an ejection fraction of 65-70%. There are no regional LV wall motion abnormalities. There is Grade II (moderate) diastolic dysfunction. Right Ventricle Right ventricle cavity appears normal. Systolic function is normal. Left Atrium Left atrium cavity size is normal. Right Atrium Right atrium cavity is normal. IVC/SVC Inferior vena cava structure is normal. RA pressures is estimated to be 3 mmHg (IVC diameter <21 mm and decreases >50% during inspiration). Mitral Valve The leaflets are moderately thickened. There is trace regurgitation. There is mild stenosis. Tricuspid Valve Tricuspid valve structure is normal. Tricuspid regurgitation is inadequate for estimation of right ventricular systolic pressure. There is no significant tricuspid valve stenosis. Aortic Valve The aortic valve is trileaflet. The leaflets are not thickened and exhibit normal excursion. The valve has been surgically replaced. There is a 29 mm TAVR bioprosthetic valve. The prosthetic valve appears well-seated. There is trace paravalvular regurgitation. Mean PG 4mmHg. AT 85ms Pulmonic Valve The pulmonic valve was not well visualized. No significant pulmonic valve regurgitation. No significant pulmonary valve stenosis noted. Ascending Aorta The aorta appears normal in size. Pericardium Pericardium was not well visualized. There is no pericardial effusion. Study Details Overall the study quality was adequate. Cardiac history: prosthetic valve. Román Mclean MD CV ECHO PROCEDURES Final Result * External MRI Report (12/16/2024 2:13 PM EDT) Anatomical Region Laterality Modality Magnetic Resonan ce Historical Provider IMG MRI PROCEDURES Final Result * Hemoglobin A1c (12/12/2023) Hemoglobin A1C 0.0 [...] Recently Relevant to Health Maintenance Insurance MEDICARE [facility] Care Teams Quality Improvement Specialist Relationship Specialty Start Date End Date Bong Marino PA [address] [place] [phone] PCP - General Physician Almond Blancher 11/08/24
--- OUTSIDE RECORDS SUMMARY | 2025-03-11 13:00 | XMS_ITS | Encounter Summary ---
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 Social History Tobacco Use [...] Description 03/27/2025 9:10 AM EDT Office Visit [facility] Center [address] [place] [phone] Emmie Pickens NP [address] [place] [address] [place] [address] documented as of this encounter Procedures Procedure Name Priority Date/Time Associated Diagnosis Comments CBC WITH AUTO DIFFERENTIAL Routine 07/13/2024 7:29 AM EST 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 CBC AND DIFFERENTIAL Routine 07/13/2024 7:29 AM EST Other fdc (current) drug therapy BASIC METABOLIC PANEL Routine 07/13/2024 7:29 AM EST 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 documented in this encounter Results * (ABNORMAL) CBC auto differential (07/13/2024 7:29 AM EST) WBC 2.2(L) 4.8 - 10.8 K/mcL LAB HEMETOLOGY METHOD 07/13/2024 10:20 AM [facility] RBC 3.20(L) 4.50 - 5.50 M/mcL LAB HEMETOLOGY METHOD 07/13/2024 10:20 AM [facility] Hemoglobin 10.0(L) 13.5 - 17.5 g/dL LAB HEMETOLOGY METHOD 07/13/2024 10:20 AM [facility] Hematocrit 30.1(L) 42.0 - 54.0 % LAB HEMETOLOGY METHOD 07/13/2024 10:20 AM [facility] MCV 93.8 79.0 - 98.0 FL LAB HEMETOLOGY METHOD 07/13/2024 10:20 AM [facility] MCH 31.2 27.0 - 32.0 pcg LAB HEMETOLOGY METHOD 07/13/2024 10:20 AM [facility] MCHC 33.2 32.0 - 37.0 g/dL LAB HEMETOLOGY METHOD 07/13/2024 10:20 AM [facility] RDW 14.6 11.0 - 15.0 % LAB HEMETOLOGY METHOD 07/13/2024 10:20 AM [facility] Platelets 85(L) 130 - 400 K/mcL LAB HEMETOLOGY METHOD 07/13/2024 10:20 AM [facility] Comment:reviewed by slide MPV 8.7 7.0 - 11.0 FL LAB HEMETOLOGY METHOD 07/13/2024 10:20 AM [facility] NRBC 0.0 <1.0 % LAB HEMETOLOGY METHOD 07/13/2024 10:20 AM [facility] NRBC Absolute 0.00 <0.10 K/mcL LAB HEMETOLOGY METHOD 07/13/2024 10:20 AM [facility] Neutrophils Relative 43.6 % LAB HEMETOLOGY METHOD 07/13/2024 10:20 AM [facility] Lymphocytes Relative 28.9 % LAB HEMETOLOGY METHOD 07/13/2024 10:20 AM [facility] Monocytes Relative 23.9 % LAB HEMETOLOGY METHOD 07/13/2024 10:20 AM [facility] Eosinophils Relative 1.8 % LAB HEMETOLOGY METHOD 07/13/2024 10:20 AM [facility] Basophils Relative 1.8 % LAB HEMETOLOGY METHOD 07/13/2024 10:20 AM [facility] Immature Granulocytes Relative 0.0 % LAB HEMETOLOGY METHOD 07/13/2024 10:20 AM [facility] Neutrophils Absolute 0.95(L) 1.50 - 7.00 K/mcL LAB HEMETOLOGY METHOD 07/13/2024 10:20 AM [facility] Lymphocytes Absolute 0.63(L) 1.00 - 5.00 K/mcL LAB HEMETOLOGY METHOD 07/13/2024 10:20 AM [facility] Monocytes Absolute 0.52 0.20 - 1.00 K/mcL LAB HEMETOLOGY METHOD 07/13/2024 10:20 AM EST [facility] Eosinophils Absolute 0.04 0.00 - 0.50 K/[facility] LAB HEMETOLOGY METHOD 07/13/2024 10:20 AM [facility] Basophils Absolute 0.04 0.00 - 0.20 K/mcL LAB HEMETOLOGY METHOD 07/13/2024 10:20 AM EST [facility] Immature Granulocytes Absolute 0.00 0.00 - 0.03 K/[facility] LAB HEMETOLOGY METHOD 07/13/2024 10:20 AM [facility] Blood Venous blood specimen / Unknown Venipuncture / Unknown 07/13/2024 7:29 AM EST 07/13/2024 9:03 AM EST Trina Brock MD LAB BLOOD ORDERABLES Fin al Result [facility] [address] [place] [address], * (ABNORMAL) Basic metabolic panel (07/13/2024 7:29 AM EST) Sodium 145 133 - 145 mmol/L LAB CHEMISTRY METHOD 07/13/2024 9:54 AM [facility] Potassium 3.0(L) 3.5 - 5.5 mmol/L LAB CHEMISTRY METHOD 07/13/2024 9:54 AM [facility] Chloride 114(H) 96 - 110 mmol/L LAB CHEMISTRY METHOD 07/13/2024 9:54 AM [facility] CO2 25 21 - 32 mmol/L LAB CHEMISTRY METHOD 07/13/2024 9:54 AM [facility] Anion Gap 6 3 - 11 LAB CHEMISTRY METHOD 07/13/2024 9:54 AM [facility] Glucose 151(H) 70 - 100 mg/dL LAB CHEMISTRY METHOD 07/13/2024 9:54 AM EST [facility] BUN 5 5 - 25 mg/dL LAB CHEMISTRY METHOD 07/13/2024 9:54 AM [facility] Creatinine 0.49(L) 0.70 - 1.30 mg/dL LAB CHEMISTRY METHOD 07/13/2024 9:54 AM [facility] eGFR 100 >=60 mL/min/1. 73m2 LAB CHEMISTRY METHOD 07/13/2024 9:54 AM [facility] Comment:Calculation based on the Chronic Kidney Disease Epidemiology Collaboration (CKD-EPI) equation refit without adjustment for race. BUN/Creatinine Ratio 10.2 LAB CHEMISTRY METHOD 07/13/2024 9:54 AM [facility] Calcium 7.6(L) 8.5 - 10.5 mg/dL LAB CHEMISTRY METHOD 07/13/2024 9:54 AM [facility] Blood Venous blood specimen / Unknown Venipuncture / Unknown 07/13/2024 7:29 AM EST 07/13/2024 9:03 AM EST us Trina Brock MD LAB BLOOD ORDERABLES Fin al Result [facility] [address] [place] [address], documented in this encounter Visit Diagnoses Diagnosis Other fdc (current) drug therapy documented in this encounter Care Teams Drawbench Operator Helper Relationship Specialty Start Date End Date Bong Marino PA [address] [place] [address] PCP - General Physician Transportation Assistant 11/08/24 documented as of this encounter
--- OUTSIDE RECORDS SUMMARY | 2025-03-11 13:00 | XMS_ITS | Clinical Summary ---
Author Organization [facility] Address [facility] [place] [address] Care Team Providers Care Facility Environmental Technician Name Role Phone Veronica Salmeron MD Primary Care Provider [phone] Social History Tobacco Use Types Packs/Day Years [...] series) 2013 Covid-19 Vaccine (1 - season) 2025 Influenza (Flu) vaccine (1 o f 1 - Influenza standard series) 02/17/2025 Care Teams Facility Environmental Technician Relationship Specialty Start Date End Date Veronica Salmeron MD [facility] [address] [place] [address] PCP - General 05/11/10
--- OUTSIDE RECORDS SUMMARY | 2025-03-11 13:00 | XMS_ITS | Encounter Summary ---
Author Organization [facility] Address [address] [place] [address] Care Team Providers Care Head Of Commission Department Name Role Phone Bong Marino Primary Care Provider [phone] Encounter Details Date Type Department Care Team (Late st Contact Info) Description 07/18/2024 Lab Requisition [facility] - Main Lab [address] [place] [address] Trina Brock MD [address] [address] Benign prostatic hyperplasia without lower urinary tract symptoms; Atherosclerotic heart disease of [place] coronary artery without angina pectoris; Occlusion and stenosis of left vertebral artery; detention (current) use of anticoagulants; Type 2 diabetes mellitus without complications ([facility]/HCC V24, [facility]/HCC V28) Social History Tobacco Use Types Packs/Day [...] Description 03/27/2025 9:10 AM EDT Office Visit [facility] [address] [place] [phone] Emmie Pickens NP [address] [place] [address] [address] [place] [phone] documented as of this encounter Procedures Procedure Name Priority Date/Time Associated Diagnosis Comments COMPLETE BLOOD COUNT Routine 07/18/2024 6:05 AM EST Benign prostatic hyperplasia without lower urinary tract symptoms 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 detention (current) use of anticoagulants Type 2 diabetes mellitus without complications (CMS/HCC) BASIC METABOLIC PANEL Routine 07/18/2024 6:05 AM EST Benign prostatic hyperplasia without lower urinary tract symptoms 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 Type 2 diabetes mellitus without complications (CMS/HCC) documented in this encounter Results * (ABNORMAL) Basic metabolic panel (07/18/2024 6:05 AM EST) Sodium 141 133 - 145 mmol/L LAB CHEMISTRY METHOD 07/18/2024 8:06 AM [facility] Potassium 3.4(L) 3.5 - 5.5 mmol/L LAB CHEMISTRY METHOD 07/18/2024 8:06 AM [facility] Chloride 107 96 - 110 mmol/L LAB CHEMISTRY METHOD 07/18/2024 8:06 AM [facility] CO2 31 21 - 32 mmol/L LAB CHEMISTRY METHOD 07/18/2024 8:06 AM [facility] Anion Gap 3 3 - 11 LAB CHEMISTRY METHOD 07/18/2024 8:06 AM [facility] Glucose 143(H) 70 - 100 mg/dL LAB CHEMISTRY METHOD 07/18/2024 8:06 AM [facility] BUN 8 5 - 25 mg/dL LAB CHEMISTRY METHOD 07/18/2024 8:06 AM [facility] Creatinine 0.66(L) 0.70 - 1.30 mg/dL LAB CHEMISTRY METHOD 07/18/2024 8:06 AM [facility] eGFR 91 >=60 mL/min/1. 73m2 LAB CHEMISTRY METHOD 07/18/2024 8:06 AM [facility] Comment:Calculation based on the Chronic Kidney Disease Epidemiology Collaboration (CKD-EPI) equation refit without adjustment for race. BUN/Creatinine Ratio 12.1 LAB CHEMISTRY METHOD 07/18/2024 8:06 AM [facility] Calcium 8.3(L) 8.5 - 10.5 mg/dL LAB CHEMISTRY METHOD 07/18/2024 8:06 AM [facility] Blood Venous blood specimen / Unknown Venipuncture / Unknown 07/18/2024 6:05 AM EST 07/18/2024 6:37 AM EST us Trina Brock MD LAB BLOOD ORDERABLES Fin al Result [facility] [address] [place] [address], * (ABNORMAL) Complete blood count (07/18/2024 6:05 AM EST) WBC 2.8(L) 4.8 - 10.8 K/mcL LAB HEMETOLOGY METHOD 07/18/2024 8:35 AM [facility] RBC 3.10(L) 4.50 - 5.50 M/mcL LAB HEMETOLOGY METHOD 07/18/2024 8:35 AM [facility] Hemoglobin 9.6(L) 13.5 - 17.5 g/dL LAB HEMETOLOGY METHOD 07/18/2024 8:35 AM [facility] Hematocrit 29.9(L) 42.0 - 54.0 % LAB HEMETOLOGY METHOD 07/18/2024 8:35 AM EST [facility] MCV 96.8 79.0 - 98.0 FL LAB HEMETOLOGY METHOD 07/18/2024 8:35 AM EST [facility] MCH 31.1 27.0 - 32.0 pcg LAB HEMETOLOGY METHOD 07/18/2024 8:35 AM [facility] MCHC 32.1 32.0 - 37.0 g/dL LAB HEMETOLOGY METHOD 07/18/2024 8:35 AM EST [facility] RDW 16.1(H) 11.0 - 15.0 % LAB HEMETOLOGY METHOD 07/18/2024 8:35 AM [facility] Platelets 83(L) 130 - 400 K/mcL LAB HEMETOLOGY METHOD 07/18/2024 8:35 AM [facility] Comment:previously verified by slide MPV 9.4 7.0 - 11.0 FL LAB HEMETOLOGY METHOD 07/18/2024 8:35 AM [facility] NRBC 0.0 <1.0 % LAB HEMETOLOGY METHOD 07/18/2024 8:35 AM [facility] NRBC Absolute 0.00 <0.10 K/mcL LAB HEMETOLOGY METHOD 07/18/2024 8:35 AM [facility] Blood Venous blood specimen / Unknown Venipuncture / Unknown 07/18/2024 6:05 AM EST 07/18/2024 6:37 AM EST us Trina Brock MD LAB BLOOD ORDERABLES Fin al Result [facility] [address] [place] [address], documented in this encounter Visit Diagnoses Diagnosis Benign prostatic hyperplasia without lower urinary tract symptoms 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
--- OUTSIDE RECORDS SUMMARY | 2025-03-11 13:00 | XMS_ITS | Encounter Summary ---
Author Organization [facility] Address [address] [place] [address] Care Team Providers Care Facility Assistant Name Role Phone Bong Marino Primary Care Provider [phone] Encounter Details Date Type Department Care Team (Late st Contact Info) Description 07/22/2024 Lab Requisition [facility] - Main Lab [address] [facility] [place] [address] Trina Brock MD [address] [address] Occlusion and stenosis of left vertebral artery; Benign prostatic hyperplasia without lower urinary tract symptoms; Atherosclerotic heart disease of [place] coronary artery without angina pectoris; Type 2 diabetes mellitus without complications ([facility] V24, [facility] V28) Social History Tobacco Use Types Packs/Day [...] Description 03/27/2025 9:10 AM EDT Office Visit [facility] - [address] [place] [phone] Emmie Pickens NP [address] [place] [address] [address] [place] [phone] documented as of this encounter Procedures Procedure Name Priority Date/Time Associated Diagnosis Comments COMPLETE BLOOD COUNT Routine 07/23/2024 6:38 AM EST Occlusion and stenosis of left vertebral artery Benign prostatic hyperplasia without lower urinary tract symptoms Atherosclerotic heart disease of [place] coronary artery without angina pectoris Type 2 diabetes mellitus without complications ([facility]/HCC) BASIC METABOLIC PANEL Routine 07/23/2024 6:38 AM EST Occlusion and stenosis of left vertebral artery Benign prostatic hyperplasia without lower urinary tract symptoms Atherosclerotic heart disease of [place] coronary artery without angina pectoris Type 2 diabetes mellitus without complications ([facility]/HCC) documented in this encounter Results * (ABNORMAL) Basic metabolic panel (07/23/2024 6:38 AM EST) Sodium 142 133 - 145 mmol/L LAB CHEMISTRY METHOD 07/23/2024 9:46 AM [facility] Potassium 3.4(L) 3.5 - 5.5 mmol/L LAB CHEMISTRY METHOD 07/23/2024 9:46 AM [facility] Chloride 107 96 - 110 mmol/L LAB CHEMISTRY METHOD 07/23/2024 9:46 AM [facility] CO2 28 21 - 32 mmol/L LAB CHEMISTRY METHOD 07/23/2024 9:46 AM [facility] Anion Gap 7 3 - 11 LAB CHEMISTRY METHOD 07/23/2024 9:46 AM [facility] Glucose 126(H) 70 - 100 mg/dL LAB CHEMISTRY METHOD 07/23/2024 9:46 AM [facility] BUN 9 5 - 25 mg/dL LAB CHEMISTRY METHOD 07/23/2024 9:46 AM [facility] Creatinine 0.67(L) 0.70 - 1.30 mg/dL LAB CHEMISTRY METHOD 07/23/2024 9:46 AM EST [facility] eGFR 91 >=60 mL/min/1. 73m2 LAB CHEMISTRY METHOD 07/23/2024 9:46 AM [facility] Comment:Calculation based on the Chronic Kidney Disease Epidemiology Collaboration (CKD-EPI) equation refit without adjustment for race. BUN/Creatinine Ratio 13.4 LAB CHEMISTRY METHOD 07/23/2024 9:46 AM [facility] Calcium 8.6 8.5 - 10.5 mg/dL LAB CHEMISTRY METHOD 07/23/2024 9:46 AM [facility] Blood Venous blood specimen / Unknown Venipuncture / Unknown 07/23/2024 6:38 AM EST 07/23/2024 8:11 AM EST Trina Brock MD LAB BLOOD ORDERABLES Fin al Result [facility] [address] [place] [address], * (ABNORMAL) Complete blood count (07/23/2024 6:38 AM EST) WBC 2.8(L) 4.8 - 10.8 K/mcL LAB HEMETOLOGY METHOD 07/23/2024 9:30 AM [facility] RBC 3.50(L) 4.50 - 5.50 M/mcL LAB HEMETOLOGY METHOD 07/23/2024 9:30 AM [facility] Hemoglobin 10.7(L) 13.5 - 17.5 g/dL LAB HEMETOLOGY METHOD 07/23/2024 9:30 AM [facility] Hematocrit 33.9(L) 42.0 - 54.0 % LAB HEMETOLOGY METHOD 07/23/2024 9:30 AM [facility] MCV 97.7 79.0 - 98.0 FL LAB HEMETOLOGY METHOD 07/23/2024 9:30 AM [facility] MCH 30.8 27.0 - 32.0 pcg LAB HEMETOLOGY METHOD 07/23/2024 9:30 AM [facility] MCHC 31.6(L) 32.0 - 37.0 g/dL LAB HEMETOLOGY METHOD 07/23/2024 9:30 AM [facility] RDW 15.0 11.0 - 15.0 % LAB HEMETOLOGY METHOD 07/23/2024 9:30 AM [facility] Platelets 88(L) 130 - 400 K/mcL LAB HEMETOLOGY METHOD 07/23/2024 9:30 AM [facility] Comment:previously verified by slide MPV 9.6 7.0 - 11.0 FL LAB HEMETOLOGY METHOD 07/23/2024 9:30 AM [facility] NRBC 0.0 <1.0 % LAB HEMETOLOGY METHOD 07/23/2024 9:30 AM [facility] NRBC Absolute 0.00 <0.10 K/mcL LAB HEMETOLOGY METHOD 07/23/2024 9:30 AM [facility] Blood Venous blood specimen / Unknown Venipuncture / Unknown 07/23/2024 6:38 AM EST 07/23/2024 8:11 AM EST us Trina Brock MD LAB BLOOD ORDERABLES Fin al Result [facility] [address] [place] [address], documented in this encounter Visit Diagnoses Diagnosis Occlusion and stenosis of left vertebral artery Benign prostatic hyperplasia without lower urinary tract symptoms Atherosclerotic heart disease of [place] coronary artery without angina pectoris Type 2 diabetes mellitus without complications (CMS/HCC V24, CMS/HCC V28) documented in this encounter Care Teams Facility Assistant Relationship Specialty Start Date End Date Bong Marino PA [address] [place] [phone] PCP - General Physician Roofing Applicator 11/08/24 documented as of this encounter
== END 2025-03-11 11:24 | disposition home or self-care (01) ==
LOC: HO.HVS 10:38
PROVIDERS: Visit Provider Surgery Vascular Surgery
DX: I65.23 Occlusion and stenosis of bilateral carotid arteries (principal)
CPT/HCPCS: 99214

== ENCOUNTER → 2025-03-11 10:37 | Outpatient (BNVA) | payer MEDICARE, SELFPAY | PROVIDERS: Visit Provider Surgery Vascular Surgery | DX: I65.23 Occlusion and stenosis of bilateral carotid arteries (principal) | CPT/HCPCS: 99212 ==

== ENCOUNTER 2025-04-07 10:32 | Outpatient (AMB) | payer MEDICARE, SELFPAY ==
--- NOTE | 2025-04-07 10:36 | A.OFFVIS_ITS ---
Vital Signs 04/07/25 10:39 Height 5 ft 7 in Weight 138 lb 14.259 oz BMI 21.8 BP 109/54 L Blood Pressure Location Lt brachial Position Sitting Pulse 64 Intake Visit Reasons: 6 mo Intake Note: Jose M presents in the office as a 6 month follow up. CC: lost 40 lbs on his own but now it is 50 and still going. Once in a while he has acrid reflux - stools up until yesterday AM they were black stools. The first half of the day they were black and since then they have been brown! Counter Tender Required: No Allergies Penicillins Allergy (Severe, Verified 04/07/25 10:40) ITCHING-SEVERE piperacillin (From Zosyn) Allergy (Mild, Verified 04/07/25 10:40) JAUNDICE tazobactam (From Zosyn) Allergy (Mild, Verified 04/07/25 10:40) JAUNDICE HPI HPI 6 mo: Details: 85 yr old m here for f/u RECAP: Hx of microscopic colitis, DM, HLP, HTN and RA (on enbrel now) He had colonoscopy due to rectal bleeding and FH of CRC in brother Colonoscopy done 05/2020- diverticulosis, polyps one was adenoma, internal hemorrhoids I did an EGD due to anemia w/u and this revealed erosive gastritis---probbaly pill induced, maybe from steroids He went to ED 07/05/24 and had imaging with gas in small bowel and concern for ischemic bowel with atherosclerosis noted in SMA and celiac axis He was transferred to [facility] and had exp lap with jejunal perf noted with resection. INTERIM: He had some black colored stools yesterday, brown today he was taking pepto for upset stomach he was in the hospital for 5 d at [facility], he has no abdominal pain appetite is good no diarrhea or constipation he has some acid reflux, taking omeprazole EXAM: GENERAL: The patient is well developed and nontoxic, lots of bruises on hands VITAL SIGNS:see workflow HEENT: Nonicteric sclerae, PERRLA, EOMI. Oropharynx clear. Moist mucous membranes. Conjunctivae appear well perfused. No thyroid mass. CHEST: Chest wall is nontender. HEART: Regular rate and rhythm with ESM 3/6 goes into the neck LUNGS: Clear to auscultation bilaterally. ABDOMEN: Soft, positive bowel sounds, nontender, no organomegaly.no flank tenderness SKIN: No rash, + excessive bruising, NEUROLOGIC: Cranial nerves II-XII intact without motor/sensory deficit. A/P: 1/jejunal diverticulum perforation, 2/ black stool but had pepto PLAN: 1/ check HGB and if low then EGD, also check b12 2/ simethicone for gas PFSH Medical History Encounter for monitoring leflunomide therapy Long-term use of Plaquenil Symptomatic stenosis of left carotid artery Aortic stenosis Rheumatoid arthritis Carpal tunnel syndrome Former smoker Insulin pump in place Diabetes Elevated cholesterol CAD (coronary artery disease) HTN (hypertension) Surgical History History of left-sided carotid endarterectomy (02/15/23) Hx of carpal tunnel repair Hx of cardiac catheterization History of shoulder surgery History of cholecystectomy History of hand surgery Hx of hemorrhoidectomy Hx of lumbar discectomy H/O colonoscopy Family History Father Heart attack Heart disease Mother Pacemaker Cataracts, bilateral Sister Heart problem Heart valve replaced Arthritis Brother Heart attack Brother Rectal cancer Sister History of modified radical mastectomy of right breast Social History Household Members: None Housing: House Are you a primary career development facilitator to a significant other at home: No Do you presently have visiting nurse or other home services: No Alcohol intake: never Patient Tobacco Use Status: Former Tobacco user Tobacco use type: Cigarette Years Smoked: 5 YEARS Advance Directives Date on File: 02/07/23 service: No Current occupational status: employed Current occupation: [employer], rt handed Physical Exam Vital Signs: Last Vital Signs Pulse 64 04/07/25 10:39 BP 109/54 L 04/07/25 10:39 BMI result Body Mass Index 21.8 Assessment & Plan Assessment & Plan (1) Anemia: Code(s): D64.9 - Anemia, unspecified Category: Medical Plan: as above Orders: Orders Complete Blood Count Auto Diff Today D64.9 - Anemia, unspecified Ferritin Today D64.9 - Anemia, unspecified Vitamin B12 and Folate Today D64.9 - Anemia, unspecified Medications: New simethicone (Gas Relief (simethicone)) 125 mg PO QID PRN 90 tabs 2RF abdominal distention esomeprazole magnesium 20 mg PO DAILY 90 caps 2RF Discontinued omeprazole Discontinued Reason: Doctor's Order 20 mg PO BID 180 caps 3RF Coding Level of Care Code Est Pt Level 3 (96966) Diagnoses Anemia D64.9
[2025-04-07 10:39] VITALS: BP 109/54; PULSE 64; BMI 21.8
== END 2025-04-07 11:13 | disposition home or self-care (01) ==
PROVIDERS: Visit Provider Internal Medicine Gastroenterology
DX: D64.9 Anemia, unspecified (principal)
CPT/HCPCS: 99213

== ENCOUNTER 2025-04-07 10:32 | Outpatient (REF) | payer MEDICARE, SELFPAY ==
[2025-04-07 11:33] LABS: MANUAL DIFF FLAG NO
[2025-04-07 11:56] LABS: Hematocrit 33.2 % (42.0-52.0); Hemoglobin 10.6 g/dl (14.0-18.0); Imm Gran Abs Auto 0.04 X10*3/uL (0.00-0.03); Imm Gran Pct Auto 0.4 % (0.0-0.4); Lymphocytes Absolute Auto 1.3 X10*3/uL (1.2-4.9); Mean Corpuscular HGB Conc 31.9 g/dl (31.0-36.0); Mean Corpuscular Hemoglobin 27.7 pg (27.0-33.0); Mean Corpuscular Volume 86.9 fL (80.0-98.0); NRBC Abs Auto 0.000 X10*3/uL (0.0-0.012); NRBC Pct Auto 0.0 /100WBC (0.0-0.2); Platelet Count 147 X10*3/uL (160-400); Red Blood Count 3.82 X10*6/uL (4.60-5.80); White Blood Count 9.2 X10*3/uL (4.8-10.8)
[2025-04-07 12:47] LABS: Ferritin 98 ng/mL (20-250)
[2025-04-07 12:49] LABS: Folate 9.3 ng/mL (> or = 4.0); Vitamin B12 277 pg/mL (200-900)
--- OUTSIDE RECORDS SUMMARY | 2025-04-07 14:05 | XMS_ITS | Encounter Summary ---
Author Organization [facility] Address [address] [place] [address] Care Team Providers Care Sulfonator Operator Name Role Phone Bong Marino Primary Care Provider +1 [phone] Encounter Details Date Type Department Care Team (Late st Contact Info) Description 07/22/2024 Lab Requisition [facility] - Main Lab 299 [facility] [place] [address] Trina Brock MD [address] [address] Occlusion and stenosis of left vertebral artery; Benign prostatic hyperplasia without lower urinary tract symptoms; Atherosclerotic heart disease of [place] coronary artery without angina pectoris; Type 2 diabetes mellitus without complications ([facility] V24, [facility] V28) Social History Tobacco Use [...] Care Team (Late st Contact Info) Description 04/09/2025 9:10 AM EDT Office Visit [facility] - [address] [place] [phone] Emmie Pickens NP [address] [place] [address] [address] [place] [phone] documented as of this encounter Procedures Procedure Name Priority Date/Time Associated Diagnosis Comments COMPLETE BLOOD COUNT Routine 07/23/2024 6:38 AM EST Occlusion and stenosis of left vertebral artery Benign prostatic hyperplasia without lower urinary tract symptoms Atherosclerotic heart disease of [place] coronary artery without angina pectoris Type 2 diabetes mellitus without complications ([facility]/HCC) BASIC METABOLIC PANEL Routine 07/23/2024 6:38 AM EST Occlusion and stenosis of left vertebral artery Benign prostatic hyperplasia without lower urinary tract symptoms Atherosclerotic heart disease of [place] coronary artery without angina pectoris Type 2 diabetes mellitus without complications ([facility]/HCC) documented in this encounter Results * (ABNORMAL) Basic metabolic panel (07/23/2024 6:38 AM EST) Sodium 142 133 - 145 mmol/L LAB CHEMISTRY METHOD 07/23/2024 9:46 AM [facility] Potassium 3.4(L) 3.5 - 5.5 mmol/L LAB CHEMISTRY METHOD 07/23/2024 9:46 AM [facility] Chloride 107 96 - 110 mmol/L LAB CHEMISTRY METHOD 07/23/2024 9:46 AM [facility] CO2 28 21 - 32 mmol/L LAB CHEMISTRY METHOD 07/23/2024 9:46 AM [facility] Anion Gap 7 3 - 11 LAB CHEMISTRY METHOD 07/23/2024 9:46 AM [facility] Glucose 126(H) 70 - 100 mg/dL LAB CHEMISTRY METHOD 07/23/2024 9:46 AM [facility] BUN 9 5 - 25 mg/dL LAB CHEMISTRY METHOD 07/23/2024 9:46 AM [facility] Creatinine 0.67(L) 0.70 - 1.30 mg/dL LAB CHEMISTRY METHOD 07/23/2024 9:[address] [facility] eGFR 91 >=60 mL/min/1. 73m2 LAB CHEMISTRY METHOD 07/23/2024 9:46 AM [facility] Comment:Calculation based on the Chronic Kidney Disease Epidemiology Collaboration (CKD-EPI) equation refit without adjustment for race. BUN/Creatinine Ratio 13.4 LAB CHEMISTRY METHOD 07/23/2024 9:46 AM [facility] Calcium 8.6 8.5 - 10.5 mg/dL LAB CHEMISTRY METHOD 07/23/2024 9:46 AM [facility] Blood Venous blood specimen / Unknown Venipuncture / Unknown 07/23/2024 6:38 AM EST 07/23/2024 8:11 AM EST Trina Brock MD LAB BLOOD ORDERABLES Fin al Result [facility] [address] [place] [address], * (ABNORMAL) Complete blood count (07/23/2024 6:38 AM EST) WBC 2.8(L) 4.8 - 10.8 K/mcL LAB HEMETOLOGY METHOD 07/23/2024 9:30 AM [facility] RBC 3.50(L) 4.50 - 5.50 M/mcL LAB HEMETOLOGY METHOD 07/23/2024 9:30 AM [facility] Hemoglobin 10.7(L) 13.5 - 17.5 g/dL LAB HEMETOLOGY METHOD 07/23/2024 9:30 AM [facility] Hematocrit 33.9(L) 42.0 - 54.0 % LAB HEMETOLOGY METHOD 07/23/2024 9:30 AM [facility] MCV 97.7 79.0 - 98.0 FL LAB HEMETOLOGY METHOD 07/23/2024 9:30 AM [facility] MCH 30.8 27.0 - 32.0 pcg LAB HEMETOLOGY METHOD 07/23/2024 9:30 AM [facility] MCHC 31.6(L) 32.0 - 37.0 g/dL LAB HEMETOLOGY METHOD 07/23/2024 9:30 AM [facility] RDW 15.0 11.0 - 15.0 % LAB HEMETOLOGY METHOD 07/23/2024 9:30 AM [facility] Platelets 88(L) 130 - 400 K/mcL LAB HEMETOLOGY METHOD 07/23/2024 9:30 AM [facility] Comment:previously verified by slide MPV 9.6 7.0 - 11.0 FL LAB HEMETOLOGY METHOD 07/23/2024 9:30 AM [facility] NRBC 0.0 <1.0 % LAB HEMETOLOGY METHOD 07/23/2024 9:30 AM [facility] NRBC Absolute 0.00 <0.10 K/mcL LAB HEMETOLOGY METHOD 07/23/2024 9:30 AM [facility] Blood Venous blood specimen / Unknown Venipuncture / Unknown 07/23/2024 6:38 AM EST 07/23/2024 8:11 AM EST us Trina Brock MD LAB BLOOD ORDERABLES Fin al Result [facility] [address] [place] [address], documented in this encounter Visit Diagnoses Diagnosis Occlusion and stenosis of left vertebral artery Benign prostatic hyperplasia without lower urinary tract symptoms Atherosclerotic heart disease of [place] coronary artery without angina pectoris Type 2 diabetes mellitus without complications (CMS/HCC V24, CMS/HCC V28) documented in this encounter Care Teams Sulfonator Operator Relationship Specialty Start Date End Date Bong Marino PA [address] [place] [phone] PCP - General Physician House Parent 11/08/24 documented as of this encounter
--- OUTSIDE RECORDS SUMMARY | 2025-04-07 14:05 | XMS_ITS | Encounter Summary ---
Author Organization [facility] Address [address] [place] [address] Care Team Providers Care Lab Clerk Name Role Phone Bong Marino Primary Care Provider [phone] [phone] Encounter Details Date Type Department Care Team (Late st Contact Info) Description 03/28/2025 Results Follow-Up [facility]iology [facility] [address] [place] [phone] Emmie Pickens NP [address] [place] [address] Dr [address] [place] [address] Social History Tobacco Use Types Packs/Day Years [...] Description 04/09/2025 9:10 AM EDT Office Visit [facility] [address] [place] [phone] Emmie Pickens NP [address] [place] [address] Dr [address] [place] [address] documented as of this encounter Visit Diagnoses Not on filedocumented in this encounter Care Teams Lab Clerk Relationship Specialty Start Date End Date Bong Marino PA [address] [place] [address] PCP - General Physician Fiberglass Luggage Molder 11/08/24 documented as of this encounter
--- OUTSIDE RECORDS SUMMARY | 2025-04-07 14:06 | XMS_ITS | Encounter Summary ---
Author Organization [facility] Address [address] [place] [address] Care Team Providers Care Elastic Attacher Chainstitch Name Role Phone Bong Marino Primary Care Provider [phone] Encounter Details Date Type Department Care Team (Late st Contact Info) Description 07/18/2024 Lab Requisition [facility] - Main Lab 299 [facility] [place] [address] Trina Brock MD [address] [address] Benign prostatic hyperplasia without lower urinary tract symptoms; Atherosclerotic heart disease of [place] coronary artery without angina pectoris; Occlusion and stenosis of left vertebral artery; 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; Type 2 diabetes mellitus without complications ([facility]/HCC V24, [facility]/HCC V28) Social History Tobacco Use Types [...] 04/09/2025 9:10 AM EDT Office Visit [facility] [address] [place] [phone] Emmie Pickens NP [address] [place] [address] Dr [address] [place] [phone] documented as of this encounter Procedures Procedure Name Priority Date/Time Associated Diagnosis Comments COMPLETE BLOOD COUNT Routine 07/18/2024 6:05 AM EST Benign prostatic hyperplasia without lower urinary tract symptoms 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 Type 2 diabetes mellitus without complications (CMS/HCC) BASIC METABOLIC PANEL Routine 07/18/2024 6:05 AM EST Benign prostatic hyperplasia without lower urinary tract symptoms 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 [facility] (current) use of anticoagulants Type 2 diabetes mellitus without complications (CMS/HCC) documented in this encounter Results * (ABNORMAL) Basic metabolic panel (07/18/2024 6:05 AM EST) Sodium 141 133 - 145 mmol/L LAB CHEMISTRY METHOD 07/18/2024 8:06 AM [facility] Potassium 3.4(L) 3.5 - 5.5 mmol/L LAB CHEMISTRY METHOD 07/18/2024 8:06 AM [facility] Chloride 107 96 - 110 mmol/L LAB CHEMISTRY METHOD 07/18/2024 8:06 AM [facility] CO2 31 21 - 32 mmol/L LAB CHEMISTRY METHOD 07/18/2024 8:06 AM [facility] Anion Gap 3 3 - 11 LAB CHEMISTRY METHOD 07/18/2024 8:06 AM [facility] Glucose 143(H) 70 - 100 mg/dL LAB CHEMISTRY METHOD 07/18/2024 8:06 AM [facility] BUN 8 5 - 25 mg/dL LAB CHEMISTRY METHOD 07/18/2024 8:06 AM [facility] Creatinine 0.66(L) 0.70 - 1.30 mg/dL LAB CHEMISTRY METHOD 07/18/2024 8:06 AM [facility] eGFR 91 >=60 mL/min/1. 73m2 LAB CHEMISTRY METHOD 07/18/2024 8:06 AM [facility] Comment:Calculation based on the Chronic Kidney Disease Epidemiology Collaboration (CKD-EPI) equation refit without adjustment for race. BUN/Creatinine Ratio 12.1 LAB CHEMISTRY METHOD 07/18/2024 8:06 AM [facility] Calcium 8.3(L) 8.5 - 10.5 mg/dL LAB CHEMISTRY METHOD 07/18/2024 8:06 AM [facility] Blood Venous blood specimen / Unknown Venipuncture / Unknown 07/18/2024 6:05 AM EST 07/18/2024 6:37 AM EST us Trina Brock MD LAB BLOOD ORDERABLES Fin al Result [facility] [address] [place] [address], * (ABNORMAL) Complete blood count (07/18/2024 6:05 AM EST) WBC 2.8(L) 4.8 - 10.8 K/mcL LAB HEMETOLOGY METHOD 07/18/2024 8:35 AM [facility] RBC 3.10(L) 4.50 - 5.50 M/mcL LAB HEMETOLOGY METHOD 07/18/2024 8:35 AM [facility] Hemoglobin 9.6(L) 13.5 - 17.5 g/dL LAB HEMETOLOGY METHOD 07/18/2024 8:35 AM [facility] Hematocrit 29.9(L) 42.0 - 54.0 % LAB HEMETOLOGY METHOD 07/18/2024 8:35 AM EST [facility] MCV 96.8 79.0 - 98.0 FL LAB HEMETOLOGY METHOD 07/18/2024 8:35 AM EST [facility] MCH 31.1 27.0 - 32.0 pcg LAB HEMETOLOGY METHOD 07/18/2024 8:35 AM [facility] MCHC 32.1 32.0 - 37.0 g/dL LAB HEMETOLOGY METHOD 07/18/2024 8:35 AM EST [facility] RDW 16.1(H) 11.0 - 15.0 % LAB HEMETOLOGY METHOD 07/18/2024 8:35 AM [facility] Platelets 83(L) 130 - 400 K/mcL LAB HEMETOLOGY METHOD 07/18/2024 8:35 AM [facility] Comment:previously verified by slide MPV 9.4 7.0 - 11.0 FL LAB HEMETOLOGY METHOD 07/18/2024 8:35 AM [facility] NRBC 0.0 <1.0 % LAB HEMETOLOGY METHOD 07/18/2024 8:35 AM [facility] NRBC Absolute 0.00 <0.10 K/mcL LAB HEMETOLOGY METHOD 07/18/2024 8:35 AM [facility] Blood Venous blood specimen / Unknown Venipuncture / Unknown 07/18/2024 6:05 AM EST 07/18/2024 6:37 AM EST us Trina Brock MD LAB BLOOD ORDERABLES Fin al Result [facility] [address] [place] [address], documented in this encounter Visit Diagnoses Diagnosis Benign prostatic hyperplasia without lower urinary tract symptoms 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
--- OUTSIDE RECORDS SUMMARY | 2025-04-07 14:06 | XMS_ITS | Encounter Summary ---
Author Organization [facility] Address [address] [place] [address] Care Team Providers Care Ultrasound Applications Specialist Name Role Phone Bong Marino Primary Care Provider [phone] [phone] Encounter Details Date Type Department Care Team (Late st Contact Info) Description 07/29/2024 Lab Requisition [facility] - Main Lab 299 [facility] [place] [address] Trina Brock MD [address] [address] Type 2 diabetes mellitus without complications (CMS/HCC V24, CMS/HCC V28); Atherosclerotic heart disease of [place] coronary artery without angina pectoris; Benign prostatic [...] Description 04/09/2025 9:10 AM EDT Office Visit [facility] - Medical Center [address] [place] [address] Emmie Pickens, PATTI [address] [place] [address] Dr [address] [place] [address] documented as of this encounter Visit Diagnoses Diagnosis Type 2 diabetes mellitus without complications ([facility] V24, [facility] V28) Atherosclerotic heart disease of [place] coronary artery without angina pectoris Benign prostatic hyperplasia without lower urinary tract symptoms Occlusion and stenosis of left vertebral artery documented in this encounter Care Teams Ultrasound Applications Specialist Relationship Specialty Start Date End Date Bong Marino PA [address] [place] [address] PCP - General Physician Mailroom Supervisor 11/08/24 documented as of this encounter
--- OUTSIDE RECORDS SUMMARY | 2025-04-07 14:06 | XMS_ITS | Encounter Summary ---
Author Organization [facility] Address [address] [place] [address] Care Team Providers Care Safe Deposit Clerk Name Role Phone Bong Marino Primary Care Provider [phone] [phone] Encounter Details Date Type Department Care Team (Late st Contact Info) Description 07/13/[address] [facility] - Main Lab 299 [facility] [place] [address] Trina Brock MD [address] [place] [address] [phone] Other manager terminal (current) drug therapy Social History Tobacco Use [...] Description 04/09/2025 9:10 AM EDT Office Visit [facility] - [facility] [address] [place] [phone] Emmie Pickens NP [address] [place] [address] [place] [address] documented as of this encounter Procedures Procedure Name Priority Date/Time Associated Diagnosis Comments CBC WITH AUTO DIFFERENTIAL Routine 07/13/2024 7:29 AM EST Other intermediate (current) drug therapy CBC AND DIFFERENTIAL Routine 07/13/2024 7:29 AM EST Other intermediate (current) drug therapy BASIC METABOLIC PANEL Routine 07/13/2024 7:29 AM EST Other intermediate (current) drug therapy documented in this encounter Results * (ABNORMAL) CBC auto differential (07/13/2024 7:29 AM EST) WBC 2.2(L) 4.8 - 10.8 K/mcL LAB HEMETOLOGY METHOD 07/13/2024 10:20 AM [facility] RBC 3.20(L) 4.50 - 5.50 M/mcL LAB HEMETOLOGY METHOD 07/13/2024 10:20 AM [facility] Hemoglobin 10.0(L) 13.5 - 17.5 g/dL LAB HEMETOLOGY METHOD 07/13/2024 10:20 AM [facility] Hematocrit 30.1(L) 42.0 - 54.0 % LAB HEMETOLOGY METHOD 07/13/2024 10:20 AM [facility] MCV 93.8 79.0 - 98.0 FL LAB HEMETOLOGY METHOD 07/13/2024 10:20 AM [facility] MCH 31.2 27.0 - 32.0 pcg LAB HEMETOLOGY METHOD 07/13/2024 10:20 AM [facility] MCHC 33.2 32.0 - 37.0 g/dL LAB HEMETOLOGY METHOD 07/13/2024 10:20 AM [facility] RDW 14.6 11.0 - 15.0 % LAB HEMETOLOGY METHOD 07/13/2024 10:20 AM [facility] Platelets 85(L) 130 - 400 K/mcL LAB HEMETOLOGY METHOD 07/13/2024 10:20 AM [facility] Comment:reviewed by slide MPV 8.7 7.0 - 11.0 FL LAB HEMETOLOGY METHOD 07/13/2024 10:20 AM [facility] NRBC 0.0 <1.0 % LAB HEMETOLOGY METHOD 07/13/2024 10:20 AM [facility] NRBC Absolute 0.00 <0.10 K/mcL LAB HEMETOLOGY METHOD 07/13/2024 10:20 AM [facility] Neutrophils Relative 43.6 % LAB HEMETOLOGY METHOD 07/13/2024 10:20 AM [facility] Lymphocytes Relative 28.9 % LAB HEMETOLOGY METHOD 07/13/2024 10:20 AM [facility] Monocytes Relative 23.9 % LAB HEMETOLOGY METHOD 07/13/2024 10:20 AM [facility] Eosinophils Relative 1.8 % LAB HEMETOLOGY METHOD 07/13/2024 10:20 AM [facility] Basophils Relative 1.8 % LAB HEMETOLOGY METHOD 07/13/2024 10:20 AM [facility] Immature Granulocytes Relative 0.0 % LAB HEMETOLOGY METHOD 07/13/2024 10:20 AM [facility] Neutrophils Absolute 0.95(L) 1.50 - 7.00 K/mcL LAB HEMETOLOGY METHOD 07/13/2024 10:20 AM [facility] Lymphocytes Absolute 0.63(L) 1.00 - 5.00 K/mcL LAB HEMETOLOGY METHOD 07/13/2024 10:20 AM [facility] Monocytes Absolute 0.52 0.20 - 1.00 K/mcL LAB HEMETOLOGY METHOD 07/13/2024 10:20 AM EST [facility] Eosinophils Absolute 0.04 0.00 - 0.50 K/[facility] LAB HEMETOLOGY METHOD 07/13/2024 10:20 AM [facility] Basophils Absolute 0.04 0.00 - 0.20 K/mcL LAB HEMETOLOGY METHOD 07/13/2024 10:20 AM EST [facility] Immature Granulocytes Absolute 0.00 0.00 - 0.03 K/[facility] LAB HEMETOLOGY METHOD 07/13/2024 10:20 AM [facility] Blood Venous blood specimen / Unknown Venipuncture / Unknown 07/13/2024 7:29 AM EST 07/13/2024 9:03 AM EST Trina Brock MD LAB BLOOD ORDERABLES Fin al Result [facility] [address] [place] [address], * (ABNORMAL) Basic metabolic panel (07/13/2024 7:29 AM EST) Sodium 145 133 - 145 mmol/L LAB CHEMISTRY METHOD 07/13/2024 9:54 AM [facility] Potassium 3.0(L) 3.5 - 5.5 mmol/L LAB CHEMISTRY METHOD 07/13/2024 9:54 AM [facility] Chloride 114(H) 96 - 110 mmol/L LAB CHEMISTRY METHOD 07/13/2024 9:54 AM [facility] CO2 25 21 - 32 mmol/L LAB CHEMISTRY METHOD 07/13/2024 9:54 AM [facility] Anion Gap 6 3 - 11 LAB CHEMISTRY METHOD 07/13/2024 9:54 AM [facility] Glucose 151(H) 70 - 100 mg/dL LAB CHEMISTRY METHOD 07/13/2024 9:54 AM EST [facility] BUN 5 5 - 25 mg/dL LAB CHEMISTRY METHOD 07/13/2024 9:54 AM [facility] Creatinine 0.49(L) 0.70 - 1.30 mg/dL LAB CHEMISTRY METHOD 07/13/2024 9:54 AM [facility] eGFR 100 >=60 mL/min/1. 73m2 LAB CHEMISTRY METHOD 07/13/2024 9:54 AM [facility] Comment:Calculation based on the Chronic Kidney Disease Epidemiology Collaboration (CKD-EPI) equation refit without adjustment for race. BUN/Creatinine Ratio 10.2 LAB CHEMISTRY METHOD 07/13/2024 9:54 AM [facility] Calcium 7.6(L) 8.5 - 10.5 mg/dL LAB CHEMISTRY METHOD 07/13/2024 9:54 AM [facility] Blood Venous blood specimen / Unknown Venipuncture / Unknown 07/13/2024 7:29 AM EST 07/13/2024 9:03 AM EST us Trina Brock MD LAB BLOOD ORDERABLES Fin al Result [facility] [address] [place] [address], documented in this encounter Visit Diagnoses Diagnosis Other intermediate (current) drug therapy documented in this encounter Care Teams Safe Deposit Clerk Relationship Specialty Start Date End Date Bong Marino PA [address] [place] [address] PCP - General Physician Assembler Ping Pong Table 11/08/24 documented as of this encounter
--- OUTSIDE RECORDS SUMMARY | 2025-04-07 14:06 | XMS_ITS | Clinical Summary ---
Author Organization [facility] Address [facility] [place] [address] Care Team Providers Care Voltage Tester Name Role Phone Veronica Salmeron MD Primary Care Provider [phone] Social History Tobacco Use Types Packs/Day Years [...] - Influenza standard series) 02/17/2025 Care Teams Voltage Tester Relationship Specialty Start Date End Date Veronica Salmeron MD [facility] [address] [place] [address] PCP - General 05/11/10
--- OUTSIDE RECORDS SUMMARY | 2025-04-07 14:07 | XMS_ITS | Clinical Summary ---
Author Organization [facility] Address [address] [place] [address] Phone Care Team Providers Care Xray Tech Name Role Phone Bong Marino Primary Care Provider [phone] Allergies Active Allergy Reactions Criticality Noted Date Comments Metformin 02/24/2025 Penicillins High 08/12/2024 Piperacillin-Tazobactam High 09/02/2022 Liver problems Tazobactam High 08/12/2024 Medications furosemide (LASIX) 20 mg tablet TAKE 1 TABLET BY MOUTH DAILY 90 tablet 1 4 Active aspirin 81 mg EC tablet Take 1 tablet (81 mg total) by mouth 1 (one) time each day. 4 Active cholecalciferol (VITAMIN D-3) 50 mcg (2,000 unit) tablet Take 1 tablet (2,000 Units total) by mouth 1 (one) time each day. Active calcium amino acid chelate 200 mg calcium tablet Sig - Route: Take 800 mg by mouth 2 Times Daily. - Oral Active acetaminophen (TYLENOL 8 HOUR) 650 mg [...] tablet 1 (one) time each day. Active hydroxychloroqu [...] 100 unit/mL injection Sliding scale 4 Active metoprolol succinate (TOPROL-XL) 25 mg 24 hr tablet Take 0.5 tablets (12.5 mg total) by mouth 1 (one) time each day. 45 each 3 5 Active buprenorphine (BUTRANS) 20 mcg/hour Place 1 [...] prior to dental procedures. 1 each 4 5 Active losartan (COZAAR) 100 mg tablet Take 1 tablet (100 mg total) by mouth 1 (one) time each day. 90 tablet 1 5 03/27/20 25 Discontinu ed(Prescri donna Discontinu ed) DILUENT, INSULIN ASPART NO.1 INJ Inject into the skin. pump 03/27/20 25 Discontinu ed(Prescri donna Discontinu ed) docusate sodium (COLACE) 100 mg capsule Take 1 capsule (100 mg total) by mouth 2 (two) times a day if needed for constipation. 03/27/20 25 Discontinu ed(Prescri donna Discontinu ed) Active Problems Problem Noted Date Diagnosed Date [...] like this. I recommending a sacroplasty through [facility] which I believe will relieve the symptoms. We discussed the details, risks and benefits and plan to follow-up with him after the procedure to see how things went. History of transcatheter aortic valve replacemen t (TAVR) 11/08/2024 Assessment & Plan (03/27/2025 9:47 AM EDT): Patient has history of severe aortic stenosis s/p TAVR. He continues on aspirin. Last echocardiogram is stable. He understands endocarditis prophylaxis. He has a PCN allergy. He takes azithromycin prior to dental cleanings and he states that he has this at home. Assessment & Plan (02/24/2025 11:01 AM EDT): [...] ongoing care Hypertension 08/12/2024 Assessment & Plan (03/27/2025 9:47 AM EDT): Patient continues to complain of dizziness. He appears orthostatic today. At his last office visit I asked him to stop amlodipine and he is unsure if he stopped this. At this point I will also stop his losartan and have him come back in a couple weeks to reassess his blood pressure and add back blood pressure medication if necessary. Additionally I did advise that he should go to the emergency room if he continues to have issues with diarrhea accompanied by lightheadedness. It is possible he may have the beginning of dehydration and we talked about the importance of increasing his hydration and electrolytes today. Patient declined going to the emergency room today. Assessment & Plan (02/24/2025 11:01 AM EDT): Patient's BP today 110/60. He complains of dizziness. He will stop amlodipine and we will arrange for a 24 hr satellite project site monitor today. We will assess for any significant bradycardia or cardiac arrhythmias which could cause dizziness. CAD (coronary artery disease) 02/13/2023 Assessment & Plan (03/27/2025 9:47 AM EDT): Patient has history of coronary [...] with routine medical care. Assessment & Plan (02/24/2025 11:01 AM EDT): [...] occurred HLD (hyperlipidemia) 02/13/2023 Assessment & Plan (03/27/2025 9:47 AM EDT): Patient continues on atorvastatin 40 mg once a day. Last LDL cholesterol was 53. This is at goal. Assessment & Plan (02/24/2025 11:01 AM EDT): [...] Encounters Date Type Department Care Team Description 03/28/2025 Results Follow-Up [facility] Cardiology [facility] [address] [place] [address] Emmie Pickens NP 03/27/2025 9:10 AM EDT Office Visit [facility] [address] [place] [address] Emmie Pickens, PATTI Coronary artery disease involving chitina coronary artery of chitina heart without angina pectoris (Primary Dx); Primary hypertension; Mixed hyperlipidemia; History of transcatheter aortic valve replacement (TAVR) 03/17/2025 Telephone Neurosurgery [facility] [address] [place] [phone] Katherin Sargent MD 03/06/2025 6:58 AM EDT - 03/06/2025 11:59 PM EDT Hospital Encounter [facility] Interventional Radiology [address] [place] [phone] Spondylosis of lumbosacral region without myelopathy or radiculopathy Discharge Disposition: Home or Self Care 03/03/2025 Telephone [facility] [address] [place] [address] Dejuan Grider MD 02/27/2025 Telephone [facility] [address] [place] [address] Dejuan Grider MD 02/24/2025 11:10 AM EDT Office Visit [facility] [address] [place] [address] Emmie Pickens, PATTI Coronary artery disease involving chitina coronary artery of chitina heart without angina pectoris (Primary Dx); Primary hypertension; Mixed hyperlipidemia; History of transcatheter aortic valve replacement (TAVR); Postural dizziness with presyncope; Dizziness 02/24/2025 8:30 AM EDT Ancillary Procedure [facility] Cardiology [facility] [address] [place] [phone] History of transcatheter aortic valve replacement (TAVR); Dizziness; Postural dizziness with presyncope 02/24/2025 Telephone [facility] Cardiology [facility] [address] [place] [address] Emmie Pickens NP 02/19/2025 8:18 AM EDT - 02/19/2025 11:59 PM EDT Hospital Encounter [facility] MRI [address] [place] [phone] Spondylosis of lumbosacral region without myelopathy or radiculopathy Discharge Disposition: Home or Self Care 02/10/2025 Telephone Neurosurgery [facility] [address] [place] [phone] Rae Logan [place] 01/31/2025 Telephone [facility] [address] [place] [address] Dejuan Grider MD 01/28/2025 11:30 AM EDT Consult Neurosurgery [facility] [address] [place] [phone] Katherin Sargent MD Spondylosis of lumbosacral region without myelopathy or radiculopathy (Primary Dx) 01/20/2025 2:30 PM EDT Ancillary Procedure [facility] Cardiology [facility] [address] [place] [phone] Aortic valve stenosis, etiology of cardiac valve disease unspecified from Last 3 Months Surgical History Surgery [...] COMMENT: colonoscopy SPINE SURGERY lumbar fusion with [employer] [employer] Medical History Medical History Date Comments Carpal [...] Sign Reading Time Taken Comments Blood Pressure 80/60 03/27/2025 9:20 AM EDT Pulse 86 03/27/2025 8:55 AM EDT Temperature 36.6 C (97.8 F) 03/06/2025 7:22 AM EDT Respiratory Rate 12 03/06/2025 9:46 AM EDT Oxygen Saturation 98% 03/27/2025 8:55 AM EDT Inhaled Oxygen Concentration - - Weight 63.5 kg (140 lb) 03/27/2025 8:55 AM EDT Height 162.6 cm (5' 4 ) 03/27/2025 8:55 AM EDT Body Mass Index 24.03 03/27/2025 8:55 AM EDT Plan of Treatment Upcoming Encounters Date Type Department Care Team (Late st Contact Info) Description 04/09/2025 9:10 AM EDT Office Visit [facility] [address] [place] [phone] Emmie Pickens NP [address] [place] [address] [address] [place] [address] Health Maintenance Due Date Last Done Comments Diabetes: Annual Foot Exam 1950 Diabetes: Annual Retina Eye Exam 1950 Falls Risk Assessment 05/28/2022 Social Influencers of Health Screening 05/28/2022 Medicare Annual Wellness Visit 08/01/2023 08/01/2022 Depression Screening 06/19/2024 Diabetes: Blood Sugar Control Test (HGBA1C) 07/24/2025 01/21/2025, 04/10/2024, 12/12/2023 Hypertension/CHF/CAD Annual BMP Blood Test 03/27/2026 03/27/2025, 02/27/2025, 10/25/2024, Additional history exists Cholesterol Screening (Lipid Panel) 07/30/2026 07/30/2021 DTaP,Tdap,and Td Vaccines (6 - Td or Tdap) 08/16/2034 08/16/2024, 03/11/2022, 10/09/2018, Additional history exists Zoster Vaccines Completed 09/27/2021, 09/2019, 10/08/2010, Additional history exists COVID-19 Vaccine Completed 12/31/2024, , 04/21/2023, Additional history exists RSV Immunization Adult Patients Completed 12/31/2024, 08/14/2024 Influenza Vaccine Completed 03/14/2025, , 03/14/2024, Additional history exists Pneumococcal Vaccine: 50+ Years Completed 03/14/2025, 11/12/2014, 11/12/2014, Additional history exists HIB Vaccines Aged Out [...] this topic Medical Devices Implanted Type Area Commissioning Specialist Device Identifier Shelf Expiration Date Model / Serial / Lot Ky[employer] Xpede Bone Cement - [id number] Implanted:Qty: 1 on 03/06/2025 by Yann Velasquez MD at [facility] Bone Cement Right: Sacrum [employer] [id number] 12/16/2026 CX01B / / [id number] [employer] Xpede Bone Cement - [id number] Implanted:Qty: 1 on 03/06/2025 by Yann Velasquez MD at [facility] Bone Cement Left: Sacrum [employer] [id number] 07/19/2027 [id number] / / [id number] Procedures Procedure Name Priority Date/Time Associated Diagnosis Comments CBC WITH AUTO DIFFERENTIAL Routine 03/27/2025 9:48 AM EDT Coronary artery disease involving chitina coronary artery of chitina heart without angina pectoris Primary hypertension CBC AND DIFFERENTIAL Routine 03/27/2025 9:48 AM EDT Coronary artery disease involving chitina coronary artery of chitina heart without angina pectoris Primary hypertension COMPREHENSIVE METABOLIC PANEL Routine 03/27/2025 9:48 AM EDT Coronary artery disease involving chitina coronary artery of chitina heart without angina pectoris Primary hypertension IR SACRAL AUG INJ 2+ NDLS PERC [...] stenosis, etiology of cardiac valve disease unspecified HEMOGLOBIN A1C Routine 12/12/2023 LIPID PANEL Routine 07/30/2021 from Last 3 Months or Most Recently Relevant to Health Maintenance Results * (ABNORMAL) CBC auto differential (03/27/2025 9:48 AM EDT) WBC 18.9(H) 3.4 - 10.8 x10E3/uL [facility] RBC 4.04(L) 4.14 - 5.80 x10E6/uL [facility] 1 Hemoglobin 11.3(L) 13.0 - 17.7 g/dL [facility] 1 Hematocrit 34.8(L) 37.5 - 51.0 % [facility] 1 MCV 86 79 - 97 fL [facility] 1 MCH 28.0 26.6 - 33.0 pg [facility] 1 MCHC 32.5 31.5 - 35.7 g/dL [facility] 1 RDW 14.4 11.6 - 15.4 % [facility] 1 Platelets 171 150 - 450 x10E3/uL [facility] 1 Neutrophils 80 Not Estab. % [facility] 1 Lymphocytes 9 Not Estab. % [facility] 1 Monocytes 10 Not Estab. % [facility] 1 Eosinophils 0 Not Estab. % [facility] 1 Basophils 0 Not Estab. % [facility] 1 Neutrophils Absolute 15.1(H) 1.4 - 7.0 x10E3/uL [facility] 1 Lymphocytes Absolute 1.7 0.7 - 3.1 x10E3/uL [facility] 1 Monocytes Absolute 1.9(H) 0.1 - 0.9 x10E3/uL [facility] 1 Eosinophils Absolute 0.0 0.0 - 0.4 x10E3/uL [facility] 1 Basophils Absolute 0.1 0.0 - 0.2 x10E3/uL [facility] 1 Immature Granulocytes Relative 1 Not Estab. % [facility] 1 Immature Grans (Abs) 0.1 0.0 - 0.1 x10E3/uL [facility] 1 Blood Venous blood specimen / Unknown 03/27/2025 9:48 AM EDT 03/27/2025 Narrative [facility] 1 - 03/27/2025 10:06 PM EDT Performed at: [address] [id number] Barge Loader: Leydi Jalloh MD, Phone: [phone] us Emmie Pickens MILIEU TECHNICIAN LAB BLOOD ORDERABLES Final R esult [facility] 1 * (ABNORMAL) Comprehensive metabolic panel (03/27/2025 9:48 AM EDT) [facility] Glucose 90 70 - 99 mg/dL [facility] 1 Blood Urea Nitrogen (BUN) 29(H) 8 - 27 mg/dL [facility] 1 Creatinine 1.47(H) 0.76 - 1.27 mg/dL [facility] 1 eGFR 46(L) >59 mL/min/1. 73 [facility] 1 BUN/Creatinine Ratio 20 10 - 24 [facility] 1 Sodium 142 134 - 144 mmol/L [facility] 1 Potassium 3.6 3.5 - 5.2 mmol/L [facility] 1 Chloride 101 96 - 106 mmol/L [facility] 1 Carbon Dioxide 24 20 - 29 mmol/L [facility] 1 Calcium 8.6 8.6 - 10.2 mg/dL [facility] 1 Protein Total 5.5(L) 6.0 - 8.5 g/dL [facility] 1 Albumin 3.6(L) 3.7 - 4.7 g/dL [facility] 1 Globulin Total 1.9 1.5 - 4.5 g/dL [facility] 1 Bilirubin Total 0.8 0.0 - 1.2 mg/dL [facility] 1 Alkaline Phosphatase 92 48 - 129 IU/L [facility] 1 Aspartate aminotransferase (AST) 25 0 - 40 IU/L [facility] 1 Alanine Aminotransferase (ALT) 18 0 - 44 IU/L [facility] 1 Blood Venous blood specimen / Unknown 03/27/2025 9:48 AM EDT 03/27/2025 Narrative [facility] 1 - 03/28/2025 1:06 AM EDT Performed at: - [facility] [address] [id number] Barge Loader: Leydi Jalloh MD, Phone: [phone] Specimen Comment: A courtesy copy of this report has been sent to the patient us Emmie Pickens MILIEU TECHNICIAN LAB BLOOD ORDERABLES Final R esult [facility] 1 * IR Sacral Aug Inj 2+ Ndls [...] Signed Date: 03/06/2025 13:07 ET Workstation ID: [id number] Transcribed By: Self Edit Transcribed Date: 03/06/2025 [...] Signed Date: 03/06/2025 13:07 ET Workstation ID: [id number] Transcribed By: Self Edit Transcribed Date: 03/06/2025 12:58 ET us Katherin Sargent MD IMG IR PROCEDURES Final Result * Protime-INR (02/27/2025 8:24 AM EDT) Protime 11.9 10.6 - 13.9 sec LAB COAGULATION METHOD 02/27/2025 8:51 AM EDT [facility] INR 0.9 LAB COAGULATION METHOD 02/27/2025 8:51 AM [facility] Blood Venous blood specimen / Unknown Venipuncture / Unknown 02/27/2025 8:24 AM EDT 02/27/2025 8:42 AM EDT Yann Velasquez MD LAB BLOOD ORDERABLES Final Resul t [facility] [address] [place] [address], * (ABNORMAL) CBC (02/27/2025 8:24 AM EDT) WBC 8.9 4.8 - 10.8 K/mcL LAB HEMETOLOGY METHOD 02/27/2025 8:46 AM [facility] RBC 4.10(L) 4.50 - 5.50 M/[facility] LAB HEMETOLOGY METHOD 02/27/2025 8:46 AM [facility] Hemoglobin 11.2(L) 13.5 - 17.5 g/dL LAB HEMETOLOGY METHOD 02/27/2025 8:46 AM [facility] Hematocrit 34.8(L) 42.0 - 54.0 % LAB HEMETOLOGY METHOD 02/27/2025 8:46 AM EDT [facility] MCV 85.3 79.0 - 98.0 FL LAB HEMETOLOGY METHOD 02/27/2025 8:46 AM [facility] MCH 27.5 27.0 - 32.0 pcg LAB HEMETOLOGY METHOD 02/27/2025 8:46 AM [facility] MCHC 32.2 32.0 - 37.0 g/dL LAB HEMETOLOGY METHOD 02/27/2025 8:46 AM EDT [facility] RDW 14.9 11.0 - 15.0 % LAB HEMETOLOGY METHOD 02/27/2025 8:46 AM EDT [facility] Platelets 164 130 - 400 K/mcL LAB HEMETOLOGY METHOD 02/27/2025 8:46 AM EDT [facility] MPV 9.8 7.0 - 11.0 FL LAB HEMETOLOGY METHOD 02/27/2025 8:46 AM EDT [facility] NRBC 0.0 <1.0 % LAB HEMETOLOGY METHOD 02/27/2025 8:46 AM EDT [facility] NRBC Absolute 0.00 <0.10 K/mcL LAB HEMETOLOGY METHOD 02/27/2025 8:46 AM [facility] Blood Venous blood specimen / Unknown Venipuncture / Unknown 02/27/2025 8:24 AM EDT 02/27/2025 8:42 AM EDT us Yann Velasquez MD LAB BLOOD ORDERABLES Final Resul t [facility] [address] [place] [address], * (ABNORMAL) Basic metabolic panel (02/27/2025 8:24 AM EDT) Sodium 140 133 - 145 mmol/L LAB CHEMISTRY METHOD 02/27/2025 9:07 AM [facility] Potassium 3.4(L) 3.5 - 5.5 mmol/L LAB CHEMISTRY METHOD 02/27/2025 9:07 AM [facility] Chloride 108 96 - 110 mmol/L LAB CHEMISTRY METHOD 02/27/2025 9:07 AM [facility] CO2 27 21 - 32 mmol/L LAB CHEMISTRY METHOD 02/27/2025 9:07 AM T [facility] Anion Gap 5 3 - 11 LAB CHEMISTRY METHOD 02/27/2025 9:07 AM EDT [facility] Glucose 127(H) 70 - 100 mg/dL LAB CHEMISTRY METHOD 02/27/2025 9:07 AM EDT [facility] BUN 20 5 - 25 mg/dL LAB CHEMISTRY METHOD 02/27/2025 9:07 AM EDT [facility] Creatinine 1.08 0.70 - 1.30 mg/dL LAB CHEMISTRY METHOD 02/27/2025 9:07 AM EDT [facility] eGFR 67 >=60 mL/min/1. 73m2 LAB CHEMISTRY METHOD 02/27/2025 9:07 AM EDT [facility] Comment:Calculation based on the Chronic Kidney Disease Epidemiology Collaboration (CKD-EPI) equation refit without adjustment for race. BUN/Creatinine Ratio 18.5 LAB CHEMISTRY [facility] Calcium 7.9(L) 8.5 - 10.5 mg/dL LAB CHEMISTRY METHOD 02/27/2025 9:07 AM EDT [facility] Blood Venous blood specimen / Unknown Venipuncture / Unknown 02/27/2025 8:24 AM EDT 02/27/2025 8:42 AM EDT Yann Velasquez MD LAB BLOOD ORDERABLES Final Resul t [facility] [address] [place] [address], * CARDIAC HOLTER MONITOR (REPORT GENERATED IN HOUSE) (02/24/2025 12:44 PM EDT) Anatomical Region Laterality Modality Cardiac Diagnost ic Narrative 03/06/2025 1:39 PM EDT [facility]PART[facility] [address] [facility] [place] [address], [place] [address] TEL: FAX: Type of test: 24 hour Holter Monitor Date of test: 02/24/25 Ordering provider: Emmie Pickens NP Reason for Test: Dizziness [employer] 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 Additionally, linear [id number], STIR hyperintense signal in the left iliac [...] Signed Date: 02/20/2025 03:36 ET Workstation ID: [id number] Transcribed By: Self Edit Transcribed Date: 02/20/2025 03:20 ET Katherin Sargent MD IMG MRI PROCEDURES Final Result * TRANSTHORACIC ECHOCARDIOGRAM (TTE) COMPLETE (01/20/2025 2:51 PM EDT) Left [facility] [place] 5.7 cm CV PACS Left [facility] [place] 6.1 cm CV PACS [place] Area Sys [...] MD CV ECHO PROCEDURES Final Result * Hemoglobin A1c (12/12/2023) Hemoglobin A1C 0.0 % Comment:No interpretation ab stracted Blood Venous blood specimen / Unknown [facility] Provider LAB BLOOD ORDERABLES Sarah l Result * Lipid panel (07/30/2021) LDL/HDL Ratio 0 Comment:No interpretation ab stracted Triglycerides 0 mg/dL Comment:No interpretation ab stracted Cholesterol 0 mg/dL Comment:No interpretation ab stracted HDL 0 mg/dL Comment:No interpretation ab stracted LDL Cholesterol 0 mg/dL Comment:No interpretation ab stracted Blood Venous blood specimen / Unknown [facility] Provider LAB BLOOD ORDERABLES Sarah l Result from Last 3 Months or Most Recently Relevant to Health Maintenance Insurance MEDICARE [facility] Care Teams Xray Tech Relationship Specialty Start Date End Date Bong Marino PA [address] [place] [address] PCP - General Physician Plug Wirer 11/08/24
--- OUTSIDE RECORDS SUMMARY | 2025-05-30 20:00 | XMS_ITS | Clinical Summary ---
Author Organization Unknown Care Team Providers Care Manager Lsw Name Role Phone JOSSUE BELTRAN, JUAN Unavailable Unavaila freddy MCGARRY SHEEP AND WHEAT FARMER, ROSEANN Unavailable Unavailgenet TERAN PT, KESHA Unavailable Unavailable JAMES LEATHER PARTS MATCHER, LUCY Unavailable Unavailable DAVID RN, EVE Unavailable Unavailable Payers Payer Name Policy Type Policy Number Effective Date Expira tion Date MEDICARE.NGS.PDGM [id number] Problems Condition Name Condition Details Condition Category Status Onset Date Resolution Date Last Treatment Date Treating Clinician Comments ATHSCL HEART DISEASE OF [place] CORONARY ARTERY W/O ANG PCTRS Active 2024-06 00:00: 00 PERFORATION OF INTESTINE (NONTRAUMATI C) Active 2024-06 00:00: 00 CHRONIC VASCULAR DISORDERS OF INTESTINE Active 2024-06 00:00: 00 ESSENTIAL (PRIMARY) HYPERTENSION Active 2024-06 00:00: 00 TYPE 2 DIABETES MELLITUS WITH DIABETIC NEUROPATHY, UNSP Active 2024-06 00:00: 00 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 Active 2024-06 00:00: 00 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 2024-06 00:00: 00 POLYMYALGIA RHEUMATICA Active 2024-06 00:00: 00 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 Active 2024-06 00:00: 00 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 Active 2024-06 00:00: 00 BENIGN PROSTATIC HYPERPLASIA WITHOUT LOWER URINRY TRACT SYMP Active 2024-06 00:00: 00 GASTRO-ESOPH AGEAL REFLUX DISEASE WITHOUT ESOPHAGITIS Active 2024-06 00:00: 00 HYPERLIPIDEM IA, UNSPECIFIED Active 2024-06 00:00: 00 GROUP HOME (CURRENT) USE OF INSULIN Active 2024-06 00:00: 00 MANAGER CARDIAC (CURRENT) USE OF SYSTEMIC STEROIDS Active 2024-06 00:00: 00 MANAGER CARDIAC (CURRENT) USE OF ASPIRIN Active 2024-06 00:00: 00 PRESENCE OF XENOGENIC HEART VALVE Active 2024-06 00:00: 00 PERSONAL HISTORY OF NICOTINE DEPENDENCE Active 2024-06 00:00: 00 Allergies, Adverse Reactions, Alerts Allergy Name Allergy Type Status Severity Reaction(s) Onset Date Inactive Date Treating Clinician Comments PENICILLINS Propensity to adverse reactions Active 2024-06 13:49: 44 ZOSYN Propensity to adverse reactions Active 2024-06 13:49: 52 Medications Ordered Medication Name Filled Medication Name Start Date Stop Date Current Medication? Ordering Clinician Indication Dosage Frequency Signature (SIG) Comments Components docusate sodium 100 mg capsule 07-04 00:00: 00 03-30 23:59 :00 No [id number] CONSTIPATIO N 1 capsule 2 TIMES DAILY 1 capsule 2 TIMES DAILY (route: oral) Med Classific ation: Gastroint estinal Therapy Agents ciprofloxac in 500 mg tablet 07-02 00:00: 00 07-24 00:00 :00 No [id number] Unavailable Per instruc tions TWICE DAILY ON DAY Per instructio ns TWICE DAILY ON DAY (route: oral) Med Classific ation: Anti-Infe ctive Agents omeprazole 20 mg capsule,del ayed release 07-02 00:00: 00 03-30 23:59 :00 No [id number] GERD 1 capsule 2 TIMES DAILY 1 capsule 2 TIMES DAILY (route: oral) Med Classific ation: Gastroint estinal Therapy Agents pilocarpine 5 mg tablet 07-02 00:00: 00 03-30 23:59 :00 No [id number] DRY MOUTH 1 tablet 2 TIMES DAILY 1 tablet 2 TIMES DAILY (route: oral) Med Classific ation: Mouth-Thr oat-Denta l - Preparati ons Actemra 162 mg/0.9 mL subcutaneou s syringe 07-24 00:00: 00 03-30 23:59 :00 No [id number] RA 162 mg DIRECTED 162 mg DIRECTED (route: subcutaneo us) Med Classific ation: Analgesic , Anti-infl ammatory or Antipyret ic amlodipine 2.5 mg tablet 2 00:00: 00 03-30 23:59 :00 No [id number] HTN 1 tablet DAILY 1 tablet DAILY (route: oral) Med Classific ation: Cardiovas cular Therapy Agents aspirin 81 mg tablet,vanessa yed release 2 00:00: 00 03-30 23:59 :00 No [id number] ANTIPLATELE T 1 tablet DAILY 1 tablet DAILY (route: oral) Med Classific ation: Hematolog ical Agents cyclobenzap rine 10 mg tablet 07-24 00:00: 00 03-30 23:59 :00 No [id number] MUSCLE SPASMS 1 tablet BEDTIME 1 tablet BEDTIME (route: oral) Med Classific ation: Locomotor System Dex4 Glucose 4 gram chewable tablet 07-24 00:00: 00 03-30 23:59 :00 No [id number] HYPOGLYCEMI A Per instruc tions NEEDED Per instructio ns NEEDED (route: oral) Med Classific ation: Endocrine Flomax 0.4 mg capsule 2 00:00: 00 03-30 23:59 :00 No [id number] BPH 1 capsule BEDTIME 1 capsule BEDTIME (route: oral) Med Classific ation: Genitouri nary Therapy furosemide 20 mg tablet 2- 00:00: 00 03-30 23:59 :00 No [id number] DIURESIS 1 tablet EVERY AM 1 tablet EVERY AM (route: oral) Med Classific ation: Cardiovas cular Therapy Agents gabapentin 600 mg tablet 2- 00:00: 00 03-30 23:59 :00 No [id number] PAIN 1 tablet 3 TIMES DAILY 1 tablet 3 TIMES DAILY (route: oral) Med Classific ation: Central Nervous System Agents hydroxychlo roquine 200 mg tablet 2- 00:00: 00 03-30 23:59 :00 No [id number] RA 1 tablet DAILY 1 tablet DAILY (route: oral) Med Classific ation: Anti-Infe ctive Agents Lantus U-100 Insulin 100 unit/mL subcutaneou s solution 2-05 00:00: 00 03-30 23:59 :00 No [id number] DIABETES 19 unit DIRECTED 19 unit DIRECTED (route: [facility]) Med Classific ation: Endocrine Lipitor 10 mg tablet 2-05 00:00: 00 03-30 23:59 :00 No [id number] HLD 1 tablet EVERY PM 1 tablet EVERY PM (route: oral) Med Classific ation: Cardiovas cular Therapy Agents Novolog U-100 Insulin aspart 100 unit/mL subcutaneou s solution 2- 00:00: 00 03-30 23:59 :00 No [id number] DIABETES Per instruc tions DIRECTED Per instructio ns DIRECTED (route: [facility]) Med Classific ation: Endocrine prednisone 1 mg tablet 2-05 00:00: 00 03-30 23:59 :00 No [id number] RA 2 tablet DAILY 2 tablet DAILY (route: oral) Med Classific ation: Endocrine PreserVisio n AREDS 2 Plus Multivit 200 mcg-15 mcg-5 mg-1 mg capsule 2-05 00:00: 00 03-30 23:59 :00 No [id number] SUPPLEMENT 1 capsule 2 TIMES DAILY 1 capsule 2 TIMES DAILY (route: oral) Med Classific ation: Electroly te Balance-N utritiona l Products Probiotic 10 billion cell capsule 2-05 00:00: 00 03-30 23:59 :00 No [id number] PREVENTION 1 capsule DAILY 1 capsule DAILY (route: oral) Med Classific ation: Gastroint estinal Therapy Agents Vitamin D3 50 mcg (2,000 unit) tablet 2-05 00:00: 00 03-30 23:59 :00 No [id number] SUPPLEMENT 1 tablet DAILY 1 tablet DAILY (route: oral) Med Classific ation: Electroly te Balance-N utritiona l Products Vital Signs Vital Name Observation Time Observation Value Commen ts Temperature 2025-04-02 13:23:00.000 97.7 [degF] BMI (%) 2025-04-02 12:50:51.000 23 kg/m2 Height 2025-04-02 12:50:36.000 63 [in_us] Pulse 2025-04-02 13:23:00.000 92 /min O2 Saturation (%) 2025-04-02 13:23:00.000 98 % Respirations 2025-04-02 13:23:00.000 16 /min Weight (lbs) 2025-04-02 12:50:51.000 135 [lb_av] Systolic Blood Pressure 2025-04-02 13:23:00.000 116 mm [Hg] Diastolic Blood Pressure 2025-04-02 13:23:00.000 68 mm [Hg] Plan of Treatment Planned Activity Planned Date Details Comments Future Scheduled Test PHYSICAL T HERAPIST TO EVALUATE FOR HOME EXERCISE PROGRAM [code = PHYSICAL THERAPIST TO EVALUATE FOR HOME EXERCISE PROGRAM] Future Scheduled Test FALL REDUC TION MANAGEMENT; RN TO ASSESS AND OBSERVE, SHEEP AND WHEAT FARMER/MANAGER KNOWLEDGE TO OBSERVE FALL RISK FACTORS AND EDUCATE PATIENT/CAREGIVER ON STRATEGIES TO MINIMIZE THE RISK OF FALLING. [code = FALL REDUCTION MANAGEMENT; RN TO ASSESS AND OBSERVE, SHEEP AND WHEAT FARMER/MANAGER KNOWLEDGE TO OBSERVE FALL RISK FACTORS AND EDUCATE PATIENT/CAREGIVER ON STRATEGIES TO MINIMIZE THE RISK OF FALLING.] Future Scheduled Test DIABETES M ANAGEMENT; RN TO ASSESS AND TEACH, MANAGER KNOWLEDGE/SHEEP AND WHEAT FARMER TO OBSERVE AND TEACH INSTRUCTIONS OF DIABETIC CARE TO INCLUDE: DIET DIABETIC, SKIN CARE, SIGNS AND SYMPTOMS OF HYPO/HYPERGLYCEMIA, PROPER ADMINISTRATION OF DIABETIC MEDICATION. RN/MANAGER KNOWLEDGE/SHEEP AND WHEAT FARMER TO INSTRUCT ON DIABETIC FOOT CARE AND MONITOR FOR SKIN LESIONS ON LOWER EXTREMITIES. BLOOD GLUCOSE TESTING 3X DAILY AND BEDTIME RN TO ASSESS AND TEACH, MANAGER KNOWLEDGE/SHEEP AND WHEAT FARMER TO OBSERVE AND TEACH PATIENT/CAREGIVER ABILITY TO PERFORM AND RECORD BLOOD GLUCOSE TESTING ORDERED AND TO REPORT ABNORMAL FINDINGS TO PHYSICIAN. RN/MANAGER KNOWLEDGE/SHEEP AND WHEAT FARMER MAY PERFORM BLOOD GLUCOSE TEST NEEDED. RN/MANAGER KNOWLEDGE/SHEEP AND WHEAT FARMER TO REPORT TO PHYSICIAN BLOOD GLUCOSE READINGS GREATER THAN 350 OR LESS THAN 70 RN/MANAGER KNOWLEDGE/SHEEP AND WHEAT FARMER TO INSTRUCT PATIENT ON IMPORTANCE OF HGBA1C MONITORING, KIDNEY FUNCTION TEST, EYE AND FOOT EXAMS. [code = DIABETES MANAGEMENT; RN TO ASSESS AND TEACH, MANAGER KNOWLEDGE/SHEEP AND WHEAT FARMER TO OBSERVE AND TEACH INSTRUCTIONS OF DIABETIC CARE TO INCLUDE: DIET DIABETIC, SKIN CARE, SIGNS AND SYMPTOMS OF HYPO/HYPERGLYCEMIA, PROPER ADMINISTRATION OF DIABETIC MEDICATION. RN/MANAGER KNOWLEDGE/SHEEP AND WHEAT FARMER TO INSTRUCT ON DIABETIC FOOT CARE AND MONITOR FOR SKIN LESIONS ON LOWER EXTREMITIES. BLOOD GLUCOSE TESTING 3X DAILY AND BEDTIME RN TO ASSESS AND TEACH, MANAGER KNOWLEDGE/SHEEP AND WHEAT FARMER TO OBSERVE AND TEACH PATIENT/CAREGIVER ABILITY TO PERFORM AND RECORD BLOOD GLUCOSE TESTING ORDERED AND TO REPORT ABNORMAL FINDINGS TO PHYSICIAN. RN/MANAGER KNOWLEDGE/SHEEP AND WHEAT FARMER MAY PERFORM BLOOD GLUCOSE TEST NEEDED. RN/MANAGER KNOWLEDGE/SHEEP AND WHEAT FARMER TO REPORT TO PHYSICIAN BLOOD GLUCOSE READINGS GREATER THAN 350 OR LESS THAN 70 RN/MANAGER KNOWLEDGE/SHEEP AND WHEAT FARMER TO INSTRUCT PATIENT ON IMPORTANCE OF HGBA1C MONITORING, KIDNEY FUNCTION TEST, EYE AND FOOT EXAMS.] Future Scheduled Test RN TO OBSE RVE, ASSESS, EVALUATE, AND DEVELOP AN INDIVIDUALIZED PLAN OF CARE. AGENCY MAY ACCEPT ORDERS FROM CONSULTING PHYSICIANS RN TO OBSERVE AND ASSESS, SHEEP AND WHEAT FARMER/MANAGER KNOWLEDGE TO OBSERVE FOR RISK FOR FALLS AND INSTRUCT IN FALL PREVENTION, HOME SAFETY, MEDICATION MANAGEMENT, INFECTION PREVENTION, AND NUTRITION MANAGEMENT. RN/SHEEP AND WHEAT FARMER/MANAGER KNOWLEDGE NURSE MAY PERFORM O2 SATURATION LEVEL ON ADMISSION AND PRN FOR RN TO ASSESS/SHEEP AND WHEAT FARMER TO OBSERVE PATIENT, WITH NOTIFICATION TO THE PHYSICIAN IF SATURATION IS 90% IN THE ABSENCE OF MORE SPECIFIC PARAMETERS FROM THE PHYSICIAN. AGENCY MAY PERFORM A RESUMPTION OF CARE VISIT FOLLOWING ANY HOSPITAL ADMISSION. RN/SHEEP AND WHEAT FARMER/MANAGER KNOWLEDGE TO MONITOR CO-MORBID CONDITIONS LISTED ON THE PLAN OF CARE AND ANY NEW CONDITIONS THAT PRESENT THEMSELVES DURING THIS EPISODE TO IDENTIFY CHANGES AND INTERVENE TO MINIMIZE COMPLICATIONS. [code = RN TO OBSERVE, ASSESS, EVALUATE, AND DEVELOP AN INDIVIDUALIZED PLAN OF CARE. AGENCY MAY ACCEPT ORDERS FROM CONSULTING PHYSICIANS RN TO OBSERVE AND ASSESS, SHEEP AND WHEAT FARMER/MANAGER KNOWLEDGE TO OBSERVE FOR RISK FOR FALLS AND INSTRUCT IN FALL PREVENTION, HOME SAFETY, MEDICATION MANAGEMENT, INFECTION PREVENTION, AND NUTRITION MANAGEMENT. RN/SHEEP AND WHEAT FARMER/MANAGER KNOWLEDGE NURSE MAY PERFORM O2 SATURATION LEVEL ON ADMISSION AND PRN FOR RN TO ASSESS/SHEEP AND WHEAT FARMER TO OBSERVE PATIENT, WITH NOTIFICATION TO THE PHYSICIAN IF SATURATION IS 90% IN THE ABSENCE OF MORE SPECIFIC PARAMETERS FROM THE PHYSICIAN. AGENCY MAY PERFORM A RESUMPTION OF CARE VISIT FOLLOWING ANY HOSPITAL ADMISSION. RN/SHEEP AND WHEAT FARMER/MANAGER KNOWLEDGE TO MONITOR CO-MORBID CONDITIONS LISTED ON THE PLAN OF CARE AND ANY NEW CONDITIONS THAT PRESENT THEMSELVES DURING THIS EPISODE TO IDENTIFY CHANGES AND INTERVENE TO MINIMIZE COMPLICATIONS.] Future Scheduled Test GASTROINTE STINAL MANAGEMENT; RN TO ASSESS AND TEACH, MANAGER KNOWLEDGE/SHEEP AND WHEAT FARMER TO OBSERVE AND TEACH RELATED TO ALTERED GASTROINTESTINAL STATUS TO MINIMIZE COMPLICATIONS AND REDUCE HOSPITALIZATION. [code = GASTROINTESTINAL MANAGEMENT; RN TO ASSESS AND TEACH, MANAGER KNOWLEDGE/SHEEP AND WHEAT FARMER TO OBSERVE AND TEACH RELATED TO ALTERED GASTROINTESTINAL STATUS TO MINIMIZE COMPLICATIONS AND REDUCE HOSPITALIZATION.] Future Scheduled Test PAIN MANAG EMENT; RN TO ASSESS AND TEACH, MANAGER KNOWLEDGE/SHEEP AND WHEAT FARMER TO OBSERVE AND TEACH AND PROVIDE EDUCATION ON PAIN MANAGEMENT TECHNIQUES. [code = PAIN MANAGEMENT; RN TO ASSESS AND TEACH, MANAGER KNOWLEDGE/SHEEP AND WHEAT FARMER TO OBSERVE AND TEACH AND PROVIDE EDUCATION ON PAIN MANAGEMENT TECHNIQUES.] Future Scheduled Test RISK FOR H OSPITALIZATION; RN TO ASSESS/TEACH, MANAGER KNOWLEDGE/SHEEP AND WHEAT FARMER TO OBSERVE/TEACH PATIENT/CAREGIVER ON RISK FOR HOSPITALIZATION/EMERGENCY ROOM VISITS, TEACH SIGNS AND SYMPTOMS THAT PUT PATIENT AT RISK, WHEN TO NOTIFY NURSE/PHYSICIAN OF COMPLICATIONS/DECLINE, AND WHEN TO CALL 911. [code = RISK FOR HOSPITALIZATION; RN TO ASSESS/TEACH, MANAGER KNOWLEDGE/SHEEP AND WHEAT FARMER TO OBSERVE/TEACH PATIENT/CAREGIVER ON RISK FOR HOSPITALIZATION/EMERGENCY ROOM VISITS, TEACH SIGNS AND SYMPTOMS THAT PUT PATIENT AT RISK, WHEN TO NOTIFY NURSE/PHYSICIAN OF COMPLICATIONS/DECLINE, AND WHEN TO CALL 911.] Future Scheduled Test CARDIOVASC ULAR SYSTEM; RN TO ASSESS/TEACH, SHEEP AND WHEAT FARMER/MANAGER KNOWLEDGE TO OBSERVE/TEACH RELATED TO ALTERED CARDIOVASCULAR STATUS TO MINIMIZE COMPLICATIONS AND REDUCE HOSPITALIZATION. [code = CARDIOVASCULAR SYSTEM; RN TO ASSESS/TEACH, SHEEP AND WHEAT FARMER/MANAGER KNOWLEDGE TO OBSERVE/TEACH RELATED TO ALTERED CARDIOVASCULAR STATUS TO MINIMIZE COMPLICATIONS AND REDUCE HOSPITALIZATION.] Future Scheduled Test HYPERTENSI ON MANAGEMENT; RN TO ASSESS AND TEACH, SHEEP AND WHEAT FARMER/MANAGER KNOWLEDGE TO OBSERVE AND TEACH WARNING SIGNS AND SYMPTOMS TO AVOID HOSPITALIZATION. [code = HYPERTENSION MANAGEMENT; RN TO ASSESS AND TEACH, SHEEP AND WHEAT FARMER/MANAGER KNOWLEDGE TO OBSERVE AND TEACH WARNING SIGNS AND SYMPTOMS TO AVOID HOSPITALIZATION.] Future Scheduled Test MEDICATION MANAGEMENT; RN/SHEEP AND WHEAT FARMER/MANAGER KNOWLEDGE TO REVIEW MEDICATIONS FOR INTERACTIONS, EFFECTIVENESS OF DRUG THERAPY, AND SIGNS/SYMPTOMS OF ADVERSE REACTIONS. MAY INSTRUCT AND REINFORCE MEDICATION TEACHING RELATED TO THE USE OF MEDICATIONS, DOSAGE, FREQUENCY, PURPOSE, SIDE EFFECTS, AND TO REPORT COMPLICATIONS. [code = MEDICATION MANAGEMENT; RN/SHEEP AND WHEAT FARMER/MANAGER KNOWLEDGE TO REVIEW MEDICATIONS FOR INTERACTIONS, EFFECTIVENESS OF DRUG THERAPY, AND SIGNS/SYMPTOMS OF ADVERSE REACTIONS. MAY INSTRUCT AND REINFORCE MEDICATION TEACHING RELATED TO THE USE OF MEDICATIONS, DOSAGE, FREQUENCY, PURPOSE, SIDE EFFECTS, AND TO REPORT COMPLICATIONS.] Future Scheduled Test RN TO ASSE SS, OBSERVE, AND EDUCATE; SHEEP AND WHEAT FARMER/MANAGER KNOWLEDGE TO OBSERVE AND REINFORCE EDUCATION ON ELECTROLYTE IMBALANCES INCLUDING STRATEGIES TO MINIMIZE THE RISK OF HOSPITALIZATION. [code = RN TO ASSESS, OBSERVE, AND EDUCATE; SHEEP AND WHEAT FARMER/MANAGER KNOWLEDGE TO OBSERVE AND REINFORCE EDUCATION ON ELECTROLYTE IMBALANCES INCLUDING STRATEGIES TO MINIMIZE THE RISK OF HOSPITALIZATION.] Goal Patient Goal - NO STATED GOA L Goal Provider Goal - Goal Provider Goal - PATIENT/CAREGIVER WILL VERBALIZE/DEMONSTRATE UNDERSTANDING OF FALL RISK FACTORS AND IMPLEMENT STRATEGIES TO MINIMIZE FALL RISK. PATIENT/CAREGIVER WILL VERBALIZE/DEMONSTRATE AN ABILITY TO ADHERE TO FALL REDUCTION SELF-MANAGEMENT AND LIFE-STYLE CHANGES BY EOE Goal Provider Goal - PATIENT / CAREGIVER WILL VERBALIZE / DEMONSTRATE AN ABILITY TO ADHERE TO SELF-MANAGEMENT OF DIABETES MANAGEMENT BY EOE Goal Provider Goal - A PLAN OF CARE WILL BE ESTABLISHED THAT MEETS THE PATIENT S NEEDS. PATIENT WILL DEMONSTRATE OXYGEN SATURATION WITHIN NORMAL LIMITS OR PATIENT S OPTIMAL LEVEL ESTABLISHED BY THE PHYSICIAN THROUGHOUT [...] END OF EPISODE. Goal Provider Goal - PATIENT/CAREGIVER TO VERBALIZE, AND CONSISTENTLY DEMONSTRATE EFFECTIVE, SAFE MANAGEMENT OF MEDICATION INCLUDING KNOWLEDGE OF EFFECTIVENESS, POTENTIAL SIDE EFFECTS AND DRUG REACTIONS AND WHEN TO CONTACT THE APPROPRIATE CARE PROVIDER. PATIENT/CAREGIVER WILL BE ABLE TO VERBALIZE UNDERSTANDING OF MEDICATION REGIMEN AND ACCURATELY TAKE MEDICATIONS PRESCRIBED WITHOUT ADVERSE EFFECTS BY EOE Goal Provider Goal - PATIENT/CAREGIVER WILL DEMONSTRATE UNDERSTANDING OF ELECTROLYTE IMBALANCES AND SELF-MANAGE STRATEGIES BY END OF EPISODE. Encounters Start Date/Time End Date/Time Encounter Type Admission Type Attending Clinicians Care Facility Care Department Encounter ID Discharge Date Discharge Status Discharge Condition Discharge Reason Percent Goals Met 2025-04-02 00:00:00 2025-05-31 00:00:00 Outpatient EVE JUDGE [facility] [id number]. [id number]
== END 2025-04-07 10:33 | disposition home or self-care (01) ==
LOC: HO.LAB 10:32
PROVIDERS: PCP Physician Assistant; Visit Provider Internal Medicine Gastroenterology
DX: D64.9 Anemia, unspecified (principal)
CPT/HCPCS: 36415; 82607; 82728; 82746; 85025; 99212

== ENCOUNTER 2025-05-16 13:00 | Emergency (ER) | payer MEDICARE, SELFPAY ==
--- NOTE | ~2025-05-16 | XR_ITS ---
EXAMINATION: XR HAND 3 OR MORE VIEWS RIGHT HISTORY: pain, swelling COMPARISON: Comparison is made with the prior examination dated 08/23/2023. FINDINGS: Three views of the right hand are submitted. Osseous mineralization is normal. There is no fracture or dislocation. The patient is again noted to be status post carpal fusion. A side plate is seen extending from the distal radius to the midshaft of the 3rd metacarpal. The plate and 2 of the screws are again noted to be fractured. There is severe degenerative change of the carpus on the carpometacarpal joints. There is dorsal soft tissue swelling. XR/XR hand RT min 3V IMPRESSION: Dorsal soft tissue swelling. Severe degenerative change of the carpus status post fusion. Electronically signed by: Dedrick Perez MD 05/16/2025 01:44 PM EDI BRUNO
--- NOTE | 2025-05-16 13:05 | ED_ITS ---
HPI - General Adult General Chief complaint: Extremity Injury, Upper Stated complaint: r hand swelling Time Seen by Provider: 05/16/25 15:28 History of Present Illness ED Provider: saul HPI narrative: 85 male with remote carpal fusion for osteoarthritis now with 4 days of atraumatic right hand swelling no fever no chills denies redness or fluctuance. Pain mostly in the dorsum of the hand in the right base of the thumb. Related Data Home Medications ?Medication ?Instructions ?Recorded ?Confirmed Novolog U-100 Insulin aspart 0 units subcut (via weara ble 06/01/20 07/31/24 injectr) DAILY tamsulosin 0.4 mg capsule 0.4 mg PO BEDTIME 06/24/22 0 07/31/24 vitamins A,C,G-rstc-wzimrp 4,296 1 cap PO BID 06/24/22 07/31/24 mcg-226 mg-90 mg capsule (PreserVision AREDS) acetaminophen 650 mg 650 mg PO Q8H PRN Pain 09/0601/30/25 tablet,extended release (Tylenol 8 Hour) cyclobenzaprine 10 mg tablet 10 mg PO DAILY 09/06/22 0 01/30/25 cholecalciferol (vitamin D3) 50 50 mcg PO BID 11/21/22 01/30/25 mcg (2,000 unit) capsule calcium citrate 1,600 mg PO BID 12/24/22 furosemide 20 mg tablet mg PO 08/22/23 07/31/24 atorvastatin 10 mg tablet (Lipitor) 10 mg PO DAILY 04/1201/30/25 buprenorphine 20 mcg/hour weekly 1 patch transdermal Q WEEK 03/11/25 transdermal patch Previous Rx's ?Medication ?Instructions ?Recorded aspirin 81 mg tablet,delayed 81 mg PO DAILY #90 tabs 0 02/10/23 release pilocarpine HCl 5 mg tablet 5 mg PO BID #180 tabs 07/21 11/10 gabapentin 600 mg tablet 600 mg PO TID #270 tabs 10/17 09/10 hydroxychloroquine 200 mg tablet See Rx Instructions P O .COMPLEX 10/29/24 #108 tabs leflunomide 20 mg tablet 20 mg PO DAILY #90 tabs 10/17 09/10 ibuprofen 800 mg tablet 800 mg PO TID 10 days #30 ta bs 11/12/24 esomeprazole magnesium 20 mg 20 mg PO DAILY #90 caps 1 capsule,delayed release simethicone 125 mg chewable tablet 125 mg PO QID PRN a bdominal 04/07/25 (Gas Relief (simethicone)) distention #90 tabs prednisone 2.5 mg tablet 2.5 mg PO DAILY #90 tabs celecoxib 100 mg capsule (Celebrex) 100 mg PO BID 2 we eks #28 caps 05/16/25 Allergies Allergy/AdvReac Type Severity Reaction Status Date / Time Penicillins Allergy Severe ITCHING-SEV Verified 05/16/25 13:11 ERE piperacillin (From Zosyn) Allergy Mild JAUNDICE Verified 05/16/25 13:11 tazobactam (From Zosyn) Allergy Mild JAUNDICE Verified 05/16/25 13:11 PMFSH Past Medical History Medical History Encounter for monitoring leflunomide therapy Long-term use of Plaquenil Symptomatic stenosis of left carotid artery Aortic stenosis Rheumatoid arthritis Carpal tunnel syndrome Former smoker Insulin pump in place Diabetes Elevated cholesterol CAD (coronary artery disease) HTN (hypertension) Surgical History History of left-sided carotid endarterectomy (02/15/23) Hx of carpal tunnel repair Hx of cardiac catheterization History of shoulder surgery History of cholecystectomy History of hand surgery Hx of hemorrhoidectomy Hx of lumbar discectomy H/O colonoscopy Family History Family History Father Heart attack Heart disease Mother Pacemaker Cataracts, bilateral Sister Heart problem Heart valve replaced Arthritis Brother Heart attack Brother Rectal cancer Sister History of modified radical mastectomy of right breast Social History Social History Household Members: None Housing: House Are you a primary health care manager to a significant other at home: No Do you presently have visiting nurse or other home services: No Alcohol intake: never Patient Tobacco Use Status: Former Tobacco user Tobacco use type: Cigarette Years Smoked: 5 YEARS Smoked in Last 30 Days: No Use of substances other than those prescribed or required for medical reasons: No Advance Directives: Yes Advance Directives Information Provided: Yes Advance Directives on File: No Advance Directives Date on File: 02/07/23 Do you have a plan to hurt others: No Plan service: No Current occupational status: employed Current occupation: [employer], rt handed Physical Exam ED Exam Exam: GENERAL: Well appearing. No apparent distress. Alert. HEAD/NECK: No visual trauma. EYES: Normal to inspection. No conjunctival erythema. No discharge. ENMT: Hearing grossly normal. External nose normal. RESPIRATORY: Respiratory effort normal. CARDIOVASCULAR: Additional details (Grossly well perfused). hand:No jaundice. NEUROLOGICAL: Alert. Moving all extremities x4. Additional details (No gross motor deficits. Normal tone. ). PSYCHIATRIC: Alert. Appearance appropriate for situation. Vital Signs: Vital Signs - 24 hr 05/16/25 13:08 05/16/25 15:28 05/16/25 16:07 Temperature 97.5 F 98.2 F 98.2 F Pulse Rate 84 107 H 107 H Respiratory Rate 16 16 16 Blood Pressure 185/88 H 149/101 H 149/101 H Pulse Oximetry 98 98 98 Oxygen Delivery Method Room Air Room Air Room Air BMI result Body Mass Index 24.3 Course Course Course Narrative: Rapid medical examination performed in triage by More Greco PA-C: Patient is an 85 year old assigned male at presenting to the emergency department with swelling to his right hand. Patient states that 4 days ago he began to have significant right hand swelling. Patient states that several years ago he had a titanium nat put in and he knows the nat is broken and it doesn't usually bother him but now he has having significant swelling. Detailed physical exam and review of systems are deferred to the environmental test technician. Labs and imaging ordered. Patient placed back in the waiting room pending room availability and results. Medical Decision Making Medical Decision Making MDM Narrative: Medical Decision Making: [age] old male remote, decades all Joyner wrist with abrupt atraumatic swelling over the past 4 days no fever no chills pain mostly in base of the thumb region. There was mild nonpitting edema in the hand is well-perfused. He has no fever he does have elevated CRP and ESR which could be secondary to inflammatory process. Close follow up with hand surgery shared decision-making discussion we felt it was reasonable together discussing this to avoid antibiotics given the clinical appearance at this time patient agrees to see hand surgery outpatient. Suture removal x4. Left hand no complications Preliminary Favored Differential Diagnosis: Inflammatory less likely infectious process of the hand postoperative hardware among additional considered etiologies Testing Interpreted Independently: ?See below for details Radiology or Lab testing Results Reviewed: ?See below for details Consults: ?See below for details Independent Historians/External Chart Reviews: ?See below for details Social Determinants of Health Impacting MDM/Planning: ?See below for details Lab Data 05/16/25 14:37 05/16/25 14:37 Labs: Lab Results 05/16/25 Range/Units 14:37 WBC 8.7 (4.8-10.8) X10*3/uL RBC 4.46 L (4.60-5.80) X10*6/uL Hgb 12.6 L (14.0-18.0) g/dl Hct 38.9 L (42.0-52.0) % MCV 87.2 (80.0-98.0) fL MCH 28.3 (27.0-33.0) pg MCHC 32.4 (31.0-36.0) g/dl RDW 15.7 (11.0-16.0) % Plt Count 158 L (160-400) X10*3/uL MPV 9.2 L (9.4-12.4) fL Immature Gran % (Auto) 0.3 (0.0-0.4) % Neut % (Auto) 78.9 H (45-73) % Lymph % (Auto) 9.9 L (20-40) % Boundary % (Auto) 9.4 (2-11) % Eos % (Auto) 0.9 (0-4) % Baso % (Auto) 0.6 (0-2) % Lymph # (Auto) 0.9 L (1.2-4.9) X10*3/uL Boundary # (Auto) 0.8 (0.1-1.2) X10*3/uL Eos # (Auto) 0.1 (0.0-0.4) X10*3/uL Baso # (Auto) 0.1 (0.0-0.2) X10*3/uL Abs Immat Gran (auto) 0.03 (0.00-0.03) X10*3/uL Absolute Neuts (auto) 6.9 (2.0-8.3) x10*3/uL Absolute Nucleated RBC 0.000 (0.0-0.012) X10*3/uL Nucleated RBC % (auto) 0.0 (0.0-0.2) /100WBC ESR 26 H (0-15) MM/HR PT 12.5 (11.2-13.5) SEC INR 1.0 (0.9-1.1) Sodium 144 (135-145) mmol/L Potassium 3.3 (3.3-5.1) mmol/L Chloride 109 H (96-108) mmol/L Carbon Dioxide 24 (22-29) mmol/L Anion Gap 14 (12-20) BUN 15 (9-16) mg/dL Creatinine 0.83 (0.5-1.4) mg/dL Estim Creat Clear Calc 52.5 Estimated GFR > 60 Random Glucose 158 H (60-115) mg/dL Calcium 9.1 (8.4-10.2) mg/dL Total Bilirubin 0.7 (0.0-1.0) mg/dL AST 27 (5-37) U/L ALT 10 (0-40) U/L Alkaline Phosphatase 121 H (39-117) U/L C-Reactive Protein 1.80 H (< or = 0.50) mg/dL Total Protein 6.1 L (6.5-8.0) g/dL Albumin 3.8 (3.5-5.0) g/dL Discharge Plan Discharge Clinical Impression: Arthritis Patient Disposition: Home, Self-Care Instructions: Osteoarthritis (ED) Additional Instructions: _ DISCHARGE DIAGNOSES: Hand pain swelling felt to be inflammatory likely arthritis or operative hardware complication HISTORY OF PRESENTATION: ?Hand swelling EMERGENCY DEPARTMENT COURSE,TESTS, TREATMENTS: While in the ED today x-ray and lab work showed degenerative changes of the hand bones, remote operative hardware and inflammatory marker elevation. You had no fever DISCHARGE MEDICATIONS: ?[We have made no changes to your regular medication regimen] we have added Celebrex FOLLOW-UP: ?Call your primary or general physician soon as possible to discuss your symptoms, your ED visit and to discuss follow up plans Hand surgery INSTRUCTIONS ?& RETURN PRECAUTIONS: If any symptoms change first call your primary physician, if it is after-hours your primary doctors office should have a provider regional clinical director you can speak with. If the symptoms are severe or very concerning to you then call 911 or return to the ED. Misha Martinez MD Emergency Physician [facility] Prescriptions: New celecoxib [Celebrex] 100 mg capsule 100 mg PO BID 14 Days Qty: 28 0RF No Action pilocarpine HCl 5 mg tablet 5 mg PO BID Qty: 180 1RF ibuprofen 800 mg tablet 800 mg PO TID 10 Days Qty: 30 0RF prednisone 2.5 mg tablet 2.5 mg PO DAILY Qty: 90 1RF Novolog U-100 Insulin aspart 0 units subcut (via wearable injectr) DAILY Rx Instructions: via TANDEM insulin pump calcium citrate 200 mg (950 mg) Tablet 1,600 mg PO BID aspirin 81 mg Tablet,Delayed Release (Dr/Ec) 81 mg PO DAILY Qty: 90 0RF PreserVision AREDS [id number]-nl-[id number] capsule 1 cap PO BID tamsulosin 0.4 mg capsule 0.4 mg PO BEDTIME cyclobenzaprine 10 mg tablet 10 mg PO DAILY acetaminophen [Tylenol 8 Hour] 650 mg tablet extended release 650 mg PO Q8H PRN (Reason: Pain) furosemide 20 mg tablet PO buprenorphine 20 mcg/hour patch weekly 1 patch transdermal QWEEK cholecalciferol (vitamin D3) 50 mcg (2,000 unit) capsule 50 mcg PO BID atorvastatin [Lipitor] 10 mg tablet 10 mg PO DAILY esomeprazole magnesium 20 mg capsule,delayed release(DR/EC) 20 mg PO DAILY Qty: 90 2RF simethicone [Gas Relief (simethicone)] 125 mg tablet,chewable 125 mg PO QID PRN (Reason: abdominal distention) Qty: 90 2RF gabapentin 600 mg tablet 600 mg PO TID Qty: 270 1RF hydroxychloroquine 200 mg tablet See Rx Instructions PO .COMPLEX Qty: 108 1RF Rx Instructions: Take 1 tab daily Mon - Fri and 1 tab twice a day Sat-Sun Do not take with citalopram leflunomide 20 mg tablet 20 mg PO DAILY Qty: 90 1RF Referrals: [facility] [place] [place] Orthopedic Surgeons [Provider Group, Hand Surgery] Interventions: ED Discharge Assessment Last Done: 05/16/25 16:07 Discharge Date/Time: 05/16/25 16:24 Print Language: Khmer
[2025-05-16 13:08] VITALS: BP 185/88; PULSE 84; RESP 16; TEMP 36.4; O2SAT 98; BMI 24.3
[2025-05-16 14:44] LABS: Hematocrit 38.9 % (42.0-52.0); Hemoglobin 12.6 g/dl (14.0-18.0); Imm Gran Abs Auto 0.03 X10*3/uL (0.00-0.03); Imm Gran Pct Auto 0.3 % (0.0-0.4); Lymphocytes Absolute Auto 0.9 X10*3/uL (1.2-4.9); MANUAL DIFF FLAG NO; Mean Corpuscular HGB Conc 32.4 g/dl (31.0-36.0); Mean Corpuscular Hemoglobin 28.3 pg (27.0-33.0); Mean Corpuscular Volume 87.2 fL (80.0-98.0); NRBC Abs Auto 0.000 X10*3/uL (0.0-0.012); NRBC Pct Auto 0.0 /100WBC (0.0-0.2); Platelet Count 158 X10*3/uL (160-400); Red Blood Count 4.46 X10*6/uL (4.60-5.80); White Blood Count 8.7 X10*3/uL (4.8-10.8)
--- OUTSIDE RECORDS SUMMARY | 2025-05-16 14:46 | XMS_ITS ---
Author Name [facility] Organization Unknown Problems Problem Status Onset Date Problem Type Date of Resoluti on Source Other specified arthritis, right hand active EncounterDiagnosisAct CCT Other specified arthritis, left hand active EncounterDiagnosisAct HHCCT Encounters Encounter Type Encounter Reason Primary Diagnosis Location Date Ambulatory Primary osteoarthritis, right hand Primary osteoarthritis, right hand [facility] 04/28/2025 Ambulatory Other specified arthritis, right hand Other specified arthritis, right hand [facility] 04/28/2025 Care Team Organization Name Specialty Phone Email Start Date End Da te [facility] 04/28/2025 [facility] 04/28/2025
--- OUTSIDE RECORDS SUMMARY | 2025-05-16 14:46 | XMS_ITS | Clinical Summary ---
Author Organization [facility] Address [address] [place], [place] [id number] Care Team Providers Care Stock Selector Name Role Phone Unknown Primary Care Provider +[phone] -0000 Encounters Date Type Department Care Team Description 04/28/2025 1:34 PM EST - 04/28/2025 11:59 PM EST Hospital Encounter [address] [phone] Chris Dalal DO Arthritis of right hand Discharge Disposition: Home or Self Care 04/28/2025 1:17 PM EST - 04/28/2025 1:33 PM EST Hospital Encounter [facility] [address] [address] Chris Dalal, Other specified arthritis, right hand; Other specified arthritis, left hand Discharge Disposition: Home or Self Care from Last 3 Months Social History Tobacco Use Types Packs/Day Years Used Date Smoking Tobacco: Never Assessed Sex and Gender Information Value Date Recorded Sex Assigned at Male 04/28/2025 1:14 PM EST Legal Sex Male 1:00 PM EDT Gender Identity Male 04/28/2025 1:14 PM EST Sexual Orientation Choose not to disclose 2024 1:14 PM EST Plan of Treatment Health Maintenance Due Date Last Done Comments Advance Care Planning 1940 DTaP/Tdap/Td Vaccines (1 - Tdap) 1957 Pneumococcal Vaccines 50+ (1 of 1 - PCV) 1988 Zoster (Shingles) Vaccine (1 of 2) 1988 RSV Vaccine 50 years and older and Patients (1 - 1-dose 75+ series) 2013 Influenza Vaccine 01/17/2025 05/11/2022, , 02/16/2021, Additional history exists COVID-19 Vaccine ( season) 2025 05/19/2022, 08/01/2020, 07/04/2020 Hepatitis B Vaccines Aged Out No long er eligible based on patient's age to complete this topic Procedures Procedure Name Priority Date/Time Associated Diagnosis Comments XR HAND 2 VIEWS-RIGHT Routine 04/28/2025 1:41 PM EST Arthritis of right hand XR HAND 2 VIEWS-LEFT Routine 04/28/2025 1:40 PM EST Other specified arthritis, right hand Other specified arthritis, left hand from Last 3 Months Results * XR Hand 2 views-Right (04/28/2025 1:41 PM EST) Anatomical Region Laterality Modality Hand Right Computed Radiogr aphy 04/29/2025 4:53 PM EST Impressions 04/29/2025 4:56 PM EST Wrist fusion with fracture of the dorsally positioned hardware at the level of the base of the metacarpal bones. 2 of the 3 screws transfixing the plate to the metacarpal bones are fractured and no longer are attached to the bony plate. Narrative 04/29/2025 4:56 PM EST XR HAND 2 VIEWS-RIGHT: 04/28/2025 1:34 PM CLINICAL HISTORY: arthritis of right hand. Arthritis of right hand. 2 views. COMPARISON: None FINDINGS: Fusion of the distal forearm and wrist noted with hardware extending along the dorsum of the wrist and hand. There is a fracture in the plate at the level of the base of the metacarpal bones. There are also fractures of the proximal screws transfixing the plate into the metacarpal bones. Severe degenerative changes seen in the wrist. Partial resection of the distal ulna noted. Advanced degenerative change seen at base of thumb. Degenerative changes seen in the interphalangeal joints. Procedure Note Cinthya Yarbrough MD - 04/29/2025 XR HAND 2 VIEWS-RIGHT: 04/28/2025 1:34 PM CLINICAL HISTORY: arthritis of right hand. Arthritis of right hand. 2 views. COMPARISON: None FINDINGS: Fusion of the distal forearm and wrist noted with hardwareextending along the dorsum of the wrist and hand. There is a fracture inthe plate at the level of the base of the metacarpal bones. There are alsofractures of the proximal screws transfixing the plate into the metacarpal bones. Severe degenerativechanges seen in the wrist. Partial resection of the distal ulna noted.Advanced degenerative change seen at base of thumb. Degenerative changesseen in the interphalangeal joints. IMPRESSION: Wrist fusion with fracture of the dorsally positioned hardware at thelevel of the base of the metacarpal bones. 2 of the 3 screws transfixingthe plate to the metacarpal bones are fractured and no longer are attachedto the bony plate. us Chris Dalal [facility] DIAGNOSTIC IMAGI NG ORDERABLES Final Result * XR Hand 2 views-Left (04/28/2025 1:40 PM EST) Anatomical Region Laterality Modality Hand Left Computed Radiogr aphy 04/29/2025 4:56 PM EST Impressions 04/29/2025 4:58 PM EST Postoperative changes in the wrist including resection of the navicular bone and arthrodesis of the carpus. Advanced degenerative changes seen in the wrist and in the DIP joints of fingers. Narrative 04/29/2025 4:58 PM EST XR HAND 2 VIEWS-LEFT: 04/28/2025 1:34 PM CLINICAL HISTORY: arthrits hands. Other specified arthritis, right hand, Other specified arthritis, left hand. 2 views. COMPARISON: None FINDINGS: There has been resection of the navicular bone. Severe narrowing of the articulation between the radius and the lunate bone noted with remodeling of the distal radius. There is arthrodesis of the carpus of the wrist. Severe degenerative changes present in the wrist. Degenerative changes seen in the interphalangeal joints, most severe in the DIP joints. Soft tissue calcification seen along the [place] aspect of the wrist with overlying dorsal soft tissue swelling of the wrist. Arterial calcifications noted. Procedure Note Cinthya Yarbrough MD - 04/29/2025 XR HAND 2 VIEWS-LEFT: 04/28/2025 1:34 PM CLINICAL HISTORY: arthrits hands. Other specified arthritis, right hand,Other specified arthritis, left hand. 2 views. COMPARISON: None FINDINGS: There has been resection of the navicular bone. Severe narrowingof the articulation between the radius and the lunate bone noted withremodeling of the distal radius. There is arthrodesis of the carpus of thewrist. Severe degenerative changes present in the wrist. Degenerative changes seen in the interphalangealjoints, most severe in the DIP joints. Soft tissue calcification seen along the [place] aspect of the wrist withoverlying dorsal soft tissue swelling of the wrist. Arterialcalcifications noted. IMPRESSION: Postoperative changes in the wrist including resection of the navicularbone and arthrodesis of the carpus. Advanced degenerative changes seen inthe wrist and in the DIP joints of fingers. Chris Dalal DO IMG DIAGNOSTIC IMAGI NG ORDERABLES Final Result from Last 3 Months Insurance [facility] [employer] [employer] Care Teams Stock Selector Relationship Specialty Start Date End Date Unknown Unknow Provider Address PCP - General 04/18/25
--- OUTSIDE RECORDS SUMMARY | 2025-05-16 14:46 | XMS_ITS | Encounter Summary ---
Author Organization [facility] Address [address] [place] [address] Care Team Providers Care Terrapin Fisher Name Role Phone Bong Marino Primary Care Provider [phone] Encounter Details Date Type Department Care Team (Late st Contact Info) Description 07/29/2024 Lab Requisition [facility] - Main Lab [address] [facility] [place] [address] Trina Brock MD [address] [address] Type 2 diabetes mellitus without complications (CMS/HCC V24, CMS/HCC V28); Atherosclerotic heart disease of [place] coronary artery without angina pectoris; Benign prostatic hyperplasia without lower urinary tract symptoms; Occlusion and stenosis of left vertebral artery Social History Tobacco Use Types Packs/Day Years Used Date Smoking Tobacco: Former Cigarettes 0.5 Q uit: 06/19/1962 Smokeless Tobacco: Never Alcohol [...] Care Team (Late st Contact Info) Description 06/23/2025 11:30 AM EST Office Visit [facility] [address] [place] [id number] Emmie Pickens, PATTI [address] [place] [address] [address] [place] [address] documented as of this encounter Visit Diagnoses Diagnosis Type 2 diabetes mellitus without complications ([facility] V24, [facility] V28) Atherosclerotic heart disease of [place] coronary artery without angina pectoris Benign prostatic hyperplasia without lower urinary tract symptoms Occlusion and stenosis of left vertebral artery documented in this encounter Care Teams Terrapin Fisher Relationship Specialty Start Date End Date Bong Marino PA [address] [place] [address] PCP - General Physician [place] 11/08/24 documented as of this encounter
--- OUTSIDE RECORDS SUMMARY | 2025-05-16 14:46 | XMS_ITS | Clinical Summary ---
Author Organization [facility] Address [facility] [place] [address] Care Team Providers Care Supervisor Gate Services Name Role Phone Veronica Salmeron MD Primary Care Provider [phone] Social History Tobacco Use Types Packs/Day Years [...] 75+ series) 2013 Covid-19 Vaccine (1 - 2024- season) 2025 Influenza (Flu) vaccine (1 o f 1 - Influenza standard series) 02/17/2025 Care Teams Supervisor Gate Services Relationship Specialty Start Date End Date Veronica Salmeron MD [facility] [address] [place] [address] PCP - General 05/11/10
--- OUTSIDE RECORDS SUMMARY | 2025-05-16 14:46 | XMS_ITS | Encounter Summary ---
Author Organization [facility] Address [address] [place] [address] Care Team Providers Care Circuit Board Assembler Name Role Phone Bong Marino Primary Care Provider [phone] Encounter Details Date Type Department Care Team (Late st Contact Info) Description 07/13/2024 Lab Requisition [facility] - Main Lab [address] [facility] [place] [address] Trina Brock MD [address] [place] [address] [id number] Other terminal gauger (current) drug therapy Social History [...] Description 06/23/2025 11:30 AM EST Office Visit [facility] [address] [place] [phone] Emmie Pickens NP [facility] [place] [address] documented as of this encounter Procedures Procedure Name Priority Date/Time Associated Diagnosis Comments CBC WITH AUTO DIFFERENTIAL Routine 07/13/2024 7:29 AM EST Other snf (current) drug therapy CBC AND DIFFERENTIAL Routine 07/13/2024 7:29 AM EST Other snf (current) drug therapy BASIC METABOLIC PANEL Routine 07/13/2024 7:29 AM EST Other terminal gauger (current) drug therapy documented in this encounter Results * (ABNORMAL) CBC auto differential (07/13/2024 7:29 AM EST) WBC 2.2(L) 4.8 - 10.8 K/mcL LAB HEMETOLOGY METHOD 07/13/2024 10:20 AM [facility] RBC 3.20(L) 4.50 - 5.50 M/mcL LAB HEMETOLOGY METHOD 07/13/2024 10:20 AM [facility] Hemoglobin 10.0(L) 13.5 - 17.5 g/dL LAB HEMETOLOGY METHOD 07/13/2024 10:20 AM [facility] Hematocrit 30.1(L) 42.0 - 54.0 % LAB HEMETOLOGY METHOD 07/13/2024 10:20 AM [facility] MCV 93.8 79.0 - 98.0 FL LAB HEMETOLOGY METHOD 07/13/2024 10:20 AM [facility] MCH 31.2 27.0 - 32.0 pcg LAB HEMETOLOGY METHOD 07/13/2024 10:20 AM [facility] MCHC 33.2 32.0 - 37.0 g/dL LAB HEMETOLOGY METHOD 07/13/2024 10:20 AM [facility] RDW 14.6 11.0 - 15.0 % LAB HEMETOLOGY METHOD 07/13/2024 10:20 AM [facility] Platelets 85(L) 130 - 400 K/mcL LAB HEMETOLOGY METHOD 07/13/2024 10:20 AM [facility] Comment:reviewed by slide MPV 8.7 7.0 - 11.0 FL LAB HEMETOLOGY METHOD 07/13/2024 10:20 AM [facility] NRBC 0.0 <1.0 % LAB HEMETOLOGY METHOD 07/13/2024 10:20 AM [facility] NRBC Absolute 0.00 <0.10 K/mcL LAB HEMETOLOGY METHOD 07/13/2024 10:20 AM [facility] Neutrophils Relative 43.6 % LAB HEMETOLOGY METHOD 07/13/2024 10:20 AM [facility] Lymphocytes Relative 28.9 % LAB HEMETOLOGY METHOD 07/13/2024 10:20 AM [facility] Monocytes Relative 23.9 % LAB HEMETOLOGY METHOD 07/13/2024 10:20 AM [facility] Eosinophils Relative 1.8 % LAB HEMETOLOGY METHOD 07/13/2024 10:20 AM [facility] Basophils Relative 1.8 % LAB HEMETOLOGY METHOD 07/13/2024 10:20 AM [facility] Immature Granulocytes Relative 0.0 % LAB HEMETOLOGY METHOD 07/13/2024 10:20 AM [facility] Neutrophils Absolute 0.95(L) 1.50 - 7.00 K/mcL LAB HEMETOLOGY METHOD 07/13/2024 10:20 AM [facility] Lymphocytes Absolute 0.63(L) 1.00 - 5.00 K/mcL LAB HEMETOLOGY METHOD 07/13/2024 10:20 AM [facility] Monocytes Absolute 0.52 0.20 - 1.00 K/mcL LAB HEMETOLOGY METHOD 07/13/2024 10:20 AM EST [facility] Eosinophils Absolute 0.04 0.00 - 0.50 K/[facility] LAB HEMETOLOGY METHOD 07/13/2024 10:20 AM EST [facility] Basophils Absolute 0.04 0.00 - 0.20 K/mcL LAB HEMETOLOGY METHOD 07/13/2024 10:20 AM EST [facility] Immature Granulocytes Absolute 0.00 0.00 - 0.03 K/[facility] LAB HEMETOLOGY METHOD 07/13/2024 10:20 AM [facility] Blood Venous blood specimen / Unknown Venipuncture / Unknown 07/13/2024 7:29 AM EST 07/13/2024 9:03 AM EST Trina Brock MD LAB BLOOD ORDERABLES Fin al Result [facility] [address] [place] [address], * (ABNORMAL) Basic metabolic panel (07/13/2024 7:29 AM EST) Sodium 145 133 - 145 mmol/L LAB CHEMISTRY METHOD 07/13/2024 9:54 AM [facility] Potassium 3.0(L) 3.5 - 5.5 mmol/L LAB CHEMISTRY METHOD 07/13/2024 9:54 AM [facility] Chloride 114(H) 96 - 110 mmol/L LAB CHEMISTRY METHOD 07/13/2024 9:54 AM [facility] CO2 25 21 - 32 mmol/L LAB CHEMISTRY METHOD 07/13/2024 9:54 AM [facility] Anion Gap 6 3 - 11 LAB CHEMISTRY METHOD 07/13/2024 9:54 AM [facility] Glucose 151(H) 70 - 100 mg/dL LAB CHEMISTRY METHOD 07/13/2024 9:54 AM EST [facility] BUN 5 5 - 25 mg/dL LAB CHEMISTRY METHOD 07/13/2024 9:54 AM [facility] Creatinine 0.49(L) 0.70 - 1.30 mg/dL LAB CHEMISTRY METHOD 07/13/2024 9:54 AM [facility] eGFR 100 >=60 mL/min/1. 73m2 LAB CHEMISTRY METHOD 07/13/2024 9:54 AM [facility] Comment:Calculation based on the Chronic Kidney Disease Epidemiology Collaboration (CKD-EPI) equation refit without adjustment for race. BUN/Creatinine Ratio 10.2 LAB CHEMISTRY METHOD 07/13/2024 9:54 AM [facility] Calcium 7.6(L) 8.5 - 10.5 mg/dL LAB CHEMISTRY METHOD 07/13/2024 9:54 AM [facility] Blood Venous blood specimen / Unknown Venipuncture / Unknown 07/13/2024 7:29 AM EST 07/13/2024 9:03 AM EST us Trina Brock MD LAB BLOOD ORDERABLES Fin al Result [facility] [address] [place] [address], documented in this encounter Visit Diagnoses Diagnosis Other terminal gauger (current) drug therapy documented in this encounter Care Teams Circuit Board Assembler Relationship Specialty Start Date End Date Bong Marino PA [address] [place] [address] PCP - General Physician Head Concierge 11/08/24 documented as of this encounter
--- OUTSIDE RECORDS SUMMARY | 2025-05-16 14:46 | XMS_ITS | Encounter Summary ---
Author Organization [facility] Address [address] [place] [address] Care Team Providers Care Plant Custodian Name Role Phone Bong Marino Primary Care Provider [phone] Encounter Details Date Type Department Care Team (Late st Contact Info) Description 07/18/[address] [facility] - Main Lab [address] [facility] [place] [address] Trina Brock MD [address] [address] Benign prostatic hyperplasia without lower urinary tract symptoms; Atherosclerotic heart disease of [place] coronary artery without angina pectoris; Occlusion and stenosis of left vertebral artery; intermediate (current) use of anticoagulants; Type 2 diabetes mellitus without complications ([facility]/HCC V24, [facility]/HCC V28) Social History Tobacco Use Types [...] Description 06/23/2025 11:30 AM EST Office Visit [facility] - [facility] [address] [place] [phone] Emmie Pickens NP [address] [place] [address] [address] [place] [phone] documented as of this encounter Procedures Procedure Name Priority Date/Time Associated Diagnosis Comments COMPLETE BLOOD COUNT Routine 07/18/2024 6:05 AM EST Benign prostatic hyperplasia without lower urinary tract symptoms 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 Type 2 diabetes mellitus without complications (CMS/HCC) BASIC METABOLIC PANEL Routine 07/18/2024 6:05 AM EST Benign prostatic hyperplasia without lower urinary tract symptoms 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 intermediate (current) use of anticoagulants Type 2 diabetes mellitus without complications (CMS/HCC) documented in this encounter Results * (ABNORMAL) Basic metabolic panel (07/18/2024 6:05 AM EST) Sodium 141 133 - 145 mmol/L LAB CHEMISTRY METHOD 07/18/2024 8:06 AM [facility] Potassium 3.4(L) 3.5 - 5.5 mmol/L LAB CHEMISTRY METHOD 07/18/2024 8:06 AM [facility] Chloride 107 96 - 110 mmol/L LAB CHEMISTRY METHOD 07/18/2024 8:06 AM [facility] CO2 31 21 - 32 mmol/L LAB CHEMISTRY METHOD 07/18/2024 8:06 AM [facility] Anion Gap 3 3 - 11 LAB CHEMISTRY METHOD 07/18/2024 8:06 AM [facility] Glucose 143(H) 70 - 100 mg/dL LAB CHEMISTRY METHOD 07/18/2024 8:06 AM [facility] BUN 8 5 - 25 mg/dL LAB CHEMISTRY METHOD 07/18/2024 8:06 AM [facility] Creatinine 0.66(L) 0.70 - 1.30 mg/dL LAB CHEMISTRY METHOD 07/18/2024 8:06 AM [facility] LAB eGFR 91 >=60 mL/min/1. 73m2 LAB CHEMISTRY METHOD 07/18/2024 8:06 AM [facility] LAB Comment:Calculation based on the Chronic Kidney Disease Epidemiology Collaboration (CKD-EPI) equation refit without adjustment for race. BUN/Creatinine Ratio 12.1 LAB CHEMISTRY METHOD 07/18/2024 8:06 AM [facility] Calcium 8.3(L) 8.5 - 10.5 mg/dL LAB CHEMISTRY METHOD 07/18/2024 8:06 AM [facility] Blood Venous blood specimen / Unknown Venipuncture / Unknown 07/18/2024 6:05 AM EST 07/18/2024 6:37 AM EST us Trina Brock MD LAB BLOOD ORDERABLES Fin al Result [facility] [address] [place] [address], * (ABNORMAL) Complete blood count (07/18/2024 6:05 AM EST) WBC 2.8(L) 4.8 - 10.8 K/mcL LAB HEMETOLOGY METHOD 07/18/2024 8:35 AM [facility] RBC 3.10(L) 4.50 - 5.50 M/mcL LAB HEMETOLOGY METHOD 07/18/2024 8:35 AM [facility] Hemoglobin 9.6(L) 13.5 - 17.5 g/dL LAB HEMETOLOGY METHOD 07/18/2024 8:35 AM [facility] Hematocrit 29.9(L) 42.0 - 54.0 % LAB HEMETOLOGY METHOD 07/18/2024 8:35 AM EST [facility] MCV 96.8 79.0 - 98.0 FL LAB HEMETOLOGY METHOD 07/18/2024 8:35 AM EST [facility] MCH 31.1 27.0 - 32.0 pcg LAB HEMETOLOGY METHOD 07/18/2024 8:35 AM EST [facility] MCHC 32.1 32.0 - 37.0 g/dL LAB HEMETOLOGY METHOD 07/18/2024 8:35 AM EST [facility] RDW 16.1(H) 11.0 - 15.0 % LAB HEMETOLOGY METHOD 07/18/2024 8:35 AM [facility] Platelets 83(L) 130 - 400 K/mcL LAB HEMETOLOGY METHOD 07/18/2024 8:35 AM EST [facility] Comment:previously verified by slide MPV 9.4 7.0 - 11.0 FL LAB HEMETOLOGY METHOD 07/18/2024 8:35 AM EST [facility] NRBC 0.0 <1.0 % LAB HEMETOLOGY METHOD 07/18/2024 8:35 AM [facility] NRBC Absolute 0.00 <0.10 K/mcL LAB HEMETOLOGY METHOD 07/18/2024 8:35 AM [facility] Blood Venous blood specimen / Unknown Venipuncture / Unknown 07/18/2024 6:05 AM EST 07/18/2024 6:37 AM EST us Trina Brock MD LAB BLOOD ORDERABLES Fin al Result [facility] [address] [place] [address], documented in this encounter Visit Diagnoses Diagnosis Benign prostatic hyperplasia without lower urinary tract symptoms 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
--- OUTSIDE RECORDS SUMMARY | 2025-05-16 14:46 | XMS_ITS | Encounter Summary ---
Author Organization [facility] Address [address] [place] [address] Care Team Providers Care Mash Tub Cooker Name Role Phone Bong Marino Primary Care Provider [phone] Encounter Details Date Type Department Care Team (Late st Contact Info) Description 03/28/2025 Results Follow-Up [facility] Cardiology [facility] [address] [place] [phone] Emmie Pickens NP [address] [place] [address] [address] [place] [phone] Social History Tobacco Use Types Packs/Day Years [...] Description 06/23/2025 11:30 AM EST Office Visit [facility] Cardiology [facility] [address] [place] [phone] Emmie Pickens NP [address] [place] [address] [phone] documented as of this encounter Visit Diagnoses Not on filedocumented in this encounter Care Teams Mash Tub Cooker Relationship Specialty Start Date End Date Bong Marino PA [address] [place] [address] PCP - General Physician Emblem Fuser Tender 11/08/24 documented as of this encounter
--- OUTSIDE RECORDS SUMMARY | 2025-05-16 14:46 | XMS_ITS | Clinical Summary ---
Author Organization [facility] Address [address] [place] [address] Phone Care Team Providers Care Machine Shop Instructor Name Role Phone Bong Marino Primary Care Provider [phone] Allergies Active Allergy Reactions Criticality Noted Date [...] dental procedures. 1 each 4 5 Active Active Problems Problem Noted Date Diagnosed Date Nonrheumatic mitral valve stenosis 04/09/2025 Assessment & Plan (04/09/2025 9:42 AM EDT): During his recent hospitalization he had a repeat echocardiogram which showed severe calcification and stenosis of the mitral valve. Prior echocardiogram had revealed mild mitral stenosis. At this point patient remains asymptomatic. Will continue to monitor his symptoms. No intervention deemed necessary at this time. Lumbosacral spondylosis 01/28/2025 Assessment & Plan (01/28/2025 [...] like this. I recommending a sacroplasty through [facility] which I believe will relieve the symptoms. We discussed the details, risks and benefits and plan to follow-up with him after the procedure to see how things went. History of transcatheter aortic valve replacemen t (TAVR) 11/08/2024 Assessment & Plan (04/09/2025 9:42 AM EDT): Patient has history of severe aortic stenosis s/p TAVR. He continues on aspirin. Last echocardiogram is stable. He understands endocarditis prophylaxis. He has a PCN allergy. He takes azithromycin prior to dental cleanings and he states that he has this at home. Assessment & Plan (03/27/2025 9:47 AM EDT): [...] ongoing care Hypertension 08/12/2024 Assessment & Plan (04/09/2025 9:42 AM EDT): At his last office visit the patient was not feeling well and he had stopped amlodipine due to lightheadedness and dizziness. I also stopped his losartan at his last office visit as I felt that his blood pressure was quite low and that he was dehydrated. At this point he is feeling much better since his hospitalization and he is adequately hydrated. His blood pressure today 120/58. I do not feel the need to restart his losartan at this time therefore he will stay off of it. He will continue with his present medical therapies as outlined and detailed above. Assessment & Plan (03/27/2025 9:47 AM EDT): [...] we will arrange for a 24 hr ekg monitor tech today. We will assess for any significant bradycardia or cardiac arrhythmias which could cause dizziness. CAD (coronary artery disease) 02/13/2023 Assessment & Plan (04/09/2025 9:42 AM EDT): Patient has history of coronary [...] with routine medical care. Assessment & Plan (03/27/2025 9:47 AM EDT): [...] occurred HLD (hyperlipidemia) 02/13/2023 Assessment & Plan (04/09/2025 9:42 AM EDT): Patient continues on atorvastatin 40 mg once a day. Last LDL cholesterol was 53. This is at goal. Assessment & Plan (03/27/2025 9:47 AM EDT): [...] Encounters Date Type Department Care Team Description 04/09/2025 9:10 AM EDT Office Visit [facility] [address] [facility] [address] [place] [address] Emmie Pickens NP Coronary artery disease involving apache coronary artery of apache heart without angina pectoris (Primary Dx); Primary hypertension; Mixed hyperlipidemia; History of transcatheter aortic valve replacement (TAVR); Nonrheumatic mitral valve stenosis 03/28/2025 Results Follow-Up [facility] Dr [address] [facility] [address] [place] [address] Emmie Pickens NP 03/27/2025 9:10 AM EDT Office Visit [facility] [address] [place] [address] Emmie Pickens NP Coronary artery disease involving apache coronary artery of apache heart without angina pectoris (Primary Dx); Primary hypertension; Mixed hyperlipidemia; History of transcatheter aortic valve replacement (TAVR) 03/17/2025 Telephone Neurosurgery [facility] [address] [place] [address] Katherin Sargent MD 03/06/2025 6:58 AM EDT - 03/06/2025 11:59 PM EDT Hospital Encounter [facility] Interventional Radiology [address] [place] [phone] Spondylosis of lumbosacral region without myelopathy or radiculopathy Discharge Disposition: Home or Self Care 03/03/2025 Telephone [facility] [address] [place] [address] Dejuan Grider MD 02/27/2025 Telephone [facility] [address] [place] [address] Dejuan Grider MD 02/24/2025 11:10 AM EDT Office Visit [facility] [address] [place] [address] Emmie Pickens NP Coronary artery disease involving apache coronary artery of apache heart without angina pectoris (Primary Dx); Primary hypertension; Mixed hyperlipidemia; History of transcatheter aortic valve replacement (TAVR); Postural dizziness with presyncope; Dizziness 02/24/2025 8:30 AM EDT Ancillary Procedure [facility] [address] [place] [id number] History of transcatheter aortic valve replacement (TAVR); Dizziness; Postural dizziness with presyncope 02/24/2025 Telephone [facility] [address] [place] [address] Emmie Pickens NP 02/19/2025 8:18 AM EDT - 02/19/2025 11:59 PM EDT Hospital Encounter [facility] MRI [address] [place] [address] Spondylosis of lumbosacral region without myelopathy or radiculopathy Discharge Disposition: Home or Self Care from Last 3 Months Surgical History Surgery [...] COMMENT: colonoscopy SPINE SURGERY lumbar fusion with [facility] Medical History Medical History Date Comments Carpal [...] 0.5 Q uit: 06/19/1962 Smokeless Tobacco: Never Tobacco [...] Sign Reading Time Taken Comments Blood Pressure 120/58 04/09/2025 8:58 AM EDT Pulse 66 04/09/2025 8:58 AM EDT Temperature 36.6 C (97.8 F) 03/06/2025 7:22 AM EDT Respiratory Rate 12 03/06/2025 9:46 AM EDT Oxygen Saturation 96% 04/09/2025 8:58 AM EDT Inhaled Oxygen Concentration - - Weight 63.5 kg (140 lb) 04/09/2025 8:58 AM EDT Height 162.6 cm (5' 4 ) 04/09/2025 8:58 AM EDT Body Mass Index 24.03 04/09/2025 8:58 AM EDT Plan of Treatment Upcoming Encounters Date Type Department Care Team (Late st Contact Info) Description 06/23/2025 11:30 AM EST Office Visit [facility] [address] [place] [address] Emmie Pickens NP [address] [place] [address] [address] [place] [address] Health Maintenance Due Date Last Done Comments Diabetes: Annual Foot Exam 1950 Diabetes: Annual Retina Eye Exam 1950 Falls Risk Assessment 05/28/2022 Social Influencers of Health Screening 05/28/2022 Medicare Annual Wellness Visit 08/01/2023 08/01/2022 Depression Screening 06/19/2024 COVID-19 Vaccine ( season) 2025 12/31/2024, 03/14/2024, 04/21/2023, Additional history exists Diabetes: Blood Sugar Control Test (HGBA1C) 07/24/2025 01/21/2025, 04/10/2024, 12/12/2023 Hypertension/CHF/CAD Annual BMP Blood Test 03/27/2026 03/27/2025, 02/27/2025, 10/25/2024, Additional history exists Cholesterol Screening (Lipid Panel) 07/30/2026 07/30/2021 DTaP,Tdap,and Td Vaccines (6 - Td or Tdap) 08/16/2034 08/16/2024, 03/11/2022, 10/09/2018, Additional history exists Zoster Vaccines Completed 09/27/2021, 09/2019, 10/08/2010, Additional history exists RSV Immunization Adult Patients Completed 12/31/2024, 08/14/2024 Influenza Vaccine Completed 03/14/2025, , 05/11/2022, Additional history exists Pneumococcal Vaccine: 50+ Years [...] this topic Medical Devices Implanted Type Area Floor Assembler Device Identifier Shelf Expiration Date Model / Serial / Lot [employer] Xpede Bone Cement - [id number] Implanted:Qty: 1 on 03/06/2025 by Yann Velasquez MD at [facility] Bone Cement Right: Sacrum [employer] [id number] 12/16/2026 CX01B / / [id number] [employer] Xpede Bone Cement - [id number] Implanted:Qty: 1 on 03/06/2025 by Yann Velasquez MD at [facility] Bone Cement Left: Sacrum [employer] [id number] 07/19/2027 CX01B / / [id number] Procedures Procedure Name Priority Date/Time Associated Diagnosis Comments CBC WITH AUTO DIFFERENTIAL Routine 03/27/2025 9:48 AM EDT Coronary artery disease involving apache coronary artery of apache heart without angina pectoris Primary hypertension CBC AND DIFFERENTIAL Routine 03/27/2025 9:48 AM EDT Coronary artery disease involving apache coronary artery of apache heart without angina pectoris Primary hypertension COMPREHENSIVE METABOLIC PANEL Routine 03/27/2025 9:48 AM EDT Coronary artery disease involving apache coronary artery of apache heart without angina pectoris Primary hypertension IR SACRAL JAN INJ 2+ NDLS PERC BILAT Routine 03/06/2025 [...] of lumbosacral region without myelopathy or radiculopathy HEMOGLOBIN A1C Routine 12/12/2023 LIPID PANEL Routine [...] - 03/27/2025 10:06 PM EDT Performed at: [address] [id number] Pallet Repairer: Leydi Jalloh MD, Phone: [phone] us Emmie Pickens FIXED ROUTE OPERATOR LAB BLOOD ORDERABLES Final R esult [facility] 1 * (ABNORMAL) Comprehensive metabolic panel (03/27/2025 9:48 AM EDT) Pathologist [facility] Glucose 90 70 - 99 mg/dL [...] - 03/28/2025 1:06 AM EDT Performed at: 01 - [facility] [id number] Pallet Repairer: Leydi Jalloh MD, Phone: [phone] Specimen Comment: A courtesy copy of this report has been sent to the patient us Emmie Pickens FIXED ROUTE OPERATOR LAB BLOOD ORDERABLES Final R esult [facility] [...] Signed Date: 03/06/2025 13:07 ET Workstation ID: [id number] Transcribed By: Self Edit Transcribed Date: 03/06/2025 [...] remained in good condition. Procedure Note Yann Velasuqez MD - 03/06/2025 Sacruplasty INDICATION: Bilateral sacral [...] Signed Date: 03/06/2025 13:07 ET Workstation ID: [id number] Transcribed By: Self Edit Transcribed Date: 03/06/2025 12:58 ET us Katherin Sargent MD IMG IR PROCEDURES Final Result * Protime-INR (02/27/2025 8:24 AM EDT) Protime 11.9 10.6 - 13.9 sec LAB COAGULATION METHOD 02/27/2025 8:51 AM EDT [facility] INR 0.9 LAB COAGULATION METHOD 02/27/2025 8:51 AM EDT [facility] Blood Venous blood specimen / Unknown Venipuncture / Unknown 02/27/2025 8:24 AM EDT 02/27/2025 8:42 AM EDT us Yann Velasquez MD LAB BLOOD ORDERABLES Final Resul t [facility] [address] [place] [address], * (ABNORMAL) CBC (02/27/2025 8:24 AM EDT) WBC 8.9 4.8 - 10.8 K/mcL LAB HEMETOLOGY METHOD 02/27/2025 8:46 AM EDT [facility] RBC 4.10(L) 4.50 - 5.50 M/mcL LAB HEMETOLOGY METHOD 02/27/2025 8:46 AM EDT [facility] Hemoglobin 11.2(L) 13.5 - 17.5 g/dL LAB HEMETOLOGY METHOD 02/27/2025 8:46 AM EDT [facility] Hematocrit 34.8(L) 42.0 - 54.0 % LAB HEMETOLOGY METHOD 02/27/2025 8:46 AM EDT [facility] MCV 85.3 79.0 - 98.0 FL LAB HEMETOLOGY METHOD 02/27/2025 8:46 AM EDT [facility] MCH 27.5 27.0 - 32.0 pcg LAB HEMETOLOGY METHOD 02/27/2025 8:46 AM EDT [facility] MCHC 32.2 32.0 - 37.0 g/dL LAB HEMETOLOGY METHOD 02/27/2025 8:[address] [facility] RDW 14.9 11.0 - 15.0 % LAB HEMETOLOGY METHOD 02/27/2025 8:46 AM EDT [facility] Platelets 164 130 - 400 K/mcL LAB HEMETOLOGY METHOD 02/27/2025 8:46 AM EDT [facility] MPV 9.8 7.0 - 11.0 FL LAB HEMETOLOGY METHOD 02/27/2025 8:[address] [facility] NRBC 0.0 <1.0 % LAB HEMETOLOGY METHOD 02/27/2025 8:46 AM EDT [facility] NRBC Absolute 0.00 <0.10 K/mcL LAB HEMETOLOGY METHOD 02/27/2025 8:46 AM T [facility] Blood Venous blood specimen / Unknown Venipuncture / Unknown 02/27/2025 8:24 AM EDT 02/27/2025 8:42 AM EDT us Yann Velasquez MD LAB BLOOD ORDERABLES Final Resul t [facility] [address] [place] [address], * (ABNORMAL) Basic metabolic panel (02/27/2025 8:24 AM EDT) Sodium 140 133 - 145 mmol/L LAB CHEMISTRY METHOD 02/27/2025 9:[address] [facility] Potassium 3.4(L) 3.5 - 5.5 mmol/L LAB CHEMISTRY METHOD 02/27/2025 9:[address] [facility] Chloride 108 96 - 110 mmol/L LAB CHEMISTRY METHOD 02/27/2025 9:[address] [facility] CO2 27 21 - 32 mmol/L LAB CHEMISTRY METHOD 02/27/2025 9:[address] [facility] Anion Gap 5 3 - 11 LAB CHEMISTRY METHOD 02/27/2025 9:[address] [facility] Glucose 127(H) 70 - 100 mg/dL LAB CHEMISTRY METHOD 02/27/2025 9:[address] [facility] BUN 20 5 - 25 mg/dL LAB CHEMISTRY METHOD 02/27/2025 9:[address] [facility] Creatinine 1.08 0.70 - 1.30 mg/dL LAB CHEMISTRY METHOD 02/27/2025 9:[address] [facility] eGFR 67 >=60 mL/min/1. 73m2 LAB CHEMISTRY METHOD 02/27/2025 9:[address] [facility] Comment:Calculation based on the Chronic Kidney Disease Epidemiology Collaboration (CKD-EPI) equation refit without adjustment for race. BUN/Creatinine Ratio 18.5 LAB CHEMISTRY METHOD 02/27/2025 9:[address] [facility] Calcium 7.9(L) 8.5 - 10.5 mg/dL LAB CHEMISTRY METHOD 02/27/2025 9:[address] [facility] Blood Venous blood specimen / Unknown Venipuncture / Unknown 02/27/2025 8:24 AM EDT 02/27/2025 8:42 AM EDT Yann Velasquez MD LAB BLOOD ORDERABLES Final Resul t [facility] [address] [place] [address], * CARDIAC HOLTER MONITOR (REPORT GENERATED IN HOUSE) (02/24/2025 12:44 PM EDT) Anatomical Region Laterality Modality Cardiac Diagnost ic Narrative 03/06/2025 1:39 PM EDT [facility] DEPARTMENT [address] [place] [id number] TEL: FAX: Type of test: 24 hour Holter Monitor Date of test: 02/24/25 Ordering provider: Emmie Pickens NP Reason for Test: Dizziness PVCA Supervisor Tree Trimming Findings: 1: Normal Sinus Rhythm with brief [...] or lightheadedness Dejuan Grider MD FACC FACP Emmie Pickens NP CV CARDIAC SERVICES PROCEDUR [...] Signed Date: 02/20/2025 03:36 ET Workstation ID: [id number] Transcribed By: Self Edit Transcribed Date: 02/20/2025 [...] keeping with bilateral sacral fractures. Additionally, linear [id number], STIR hyperintense signal in the left iliac [...] Signed Date: 02/20/2025 03:36 ET Workstation ID: [id number] Transcribed By: Self Edit Transcribed Date: 02/20/2025 03:20 ET Katherin Sargent MD IMG MRI PROCEDURES Final Result * Hemoglobin [...] Insurance MEDICARE [facility] Care Teams Machine Shop Instructor Relationship Specialty Start Date End Date Bong Marino PA [address] [place] [address] PCP - General Physician Bankruptcy Judge 11/08/24
--- OUTSIDE RECORDS SUMMARY | 2025-05-16 14:46 | XMS_ITS | Encounter Summary ---
Author Organization [facility] Address [address] [place] [address] Care Team Providers Care Byproducts Extractor Name Role Phone Bong Marino Primary Care Provider [phone] Encounter Details Date Type Department Care Team (Late st Contact Info) Description 07/22/2024 Lab Requisition [facility] - Main Lab [address] [facility] [place] [address] Trina Brock MD [address] [address] Occlusion and stenosis of left vertebral artery; Benign prostatic hyperplasia without lower urinary tract symptoms; Atherosclerotic heart disease of [place] coronary artery without angina pectoris; Type 2 diabetes mellitus without complications ([facility] V24, [facility] V28) Social History Tobacco Use [...] Description 06/23/2025 11:30 AM EST Office Visit [facility] - [address] [place] [phone] Emmie Pickens NP [address] [place] [address] [address] [place] [phone] documented as of this encounter Procedures Procedure Name Priority Date/Time Associated Diagnosis Comments COMPLETE BLOOD COUNT Routine 07/23/2024 6:38 AM EST Occlusion and stenosis of left vertebral artery Benign prostatic hyperplasia without lower urinary tract symptoms Atherosclerotic heart disease of [place] coronary artery without angina pectoris Type 2 diabetes mellitus without complications (CMS/HCC) BASIC METABOLIC PANEL Routine 07/23/2024 6:38 AM EST Occlusion and stenosis of left vertebral artery Benign prostatic hyperplasia without lower urinary tract symptoms Atherosclerotic heart disease of [place] coronary artery without angina pectoris Type 2 diabetes mellitus without complications (CMS/HCC) documented in this encounter Results * (ABNORMAL) Basic metabolic panel (07/23/2024 6:38 AM EST) Sodium 142 133 - 145 mmol/L LAB CHEMISTRY METHOD 07/23/2024 9:46 AM [facility] Potassium 3.4(L) 3.5 - 5.5 mmol/L LAB CHEMISTRY METHOD 07/23/2024 9:46 AM [facility] Chloride 107 96 - 110 mmol/L LAB CHEMISTRY METHOD 07/23/2024 9:46 AM [facility] CO2 28 21 - 32 mmol/L LAB CHEMISTRY METHOD 07/23/2024 9:46 AM [facility] Anion Gap 7 3 - 11 LAB CHEMISTRY METHOD 07/23/2024 9:46 AM [facility] Glucose 126(H) 70 - 100 mg/dL LAB CHEMISTRY METHOD 07/23/2024 9:46 AM [facility] BUN 9 5 - 25 mg/dL LAB CHEMISTRY METHOD 07/23/2024 9:46 AM [facility] Creatinine 0.67(L) 0.70 - 1.30 mg/dL LAB CHEMISTRY METHOD 07/23/2024 9:46 AM EST [facility] eGFR 91 >=60 mL/min/1. 73m2 LAB CHEMISTRY METHOD 07/23/2024 9:46 AM [facility] Comment:Calculation based on the Chronic Kidney Disease Epidemiology Collaboration (CKD-EPI) equation refit without adjustment for race. BUN/Creatinine Ratio 13.4 LAB CHEMISTRY METHOD 07/23/2024 9:46 AM [facility] Calcium 8.6 8.5 - 10.5 mg/dL LAB CHEMISTRY METHOD 07/23/2024 9:46 AM [facility] Blood Venous blood specimen / Unknown Venipuncture / Unknown 07/23/2024 6:38 AM EST 07/23/2024 8:11 AM EST Trina Brock MD LAB BLOOD ORDERABLES Fin al Result [facility] [address] [place] [address], * (ABNORMAL) Complete blood count (07/23/2024 6:38 AM EST) WBC 2.8(L) 4.8 - 10.8 K/mcL LAB HEMETOLOGY METHOD 07/23/2024 9:30 AM [facility] RBC 3.50(L) 4.50 - 5.50 M/mcL LAB HEMETOLOGY METHOD 07/23/2024 9:30 AM [facility] Hemoglobin 10.7(L) 13.5 - 17.5 g/dL LAB HEMETOLOGY METHOD 07/23/2024 9:30 AM [facility] Hematocrit 33.9(L) 42.0 - 54.0 % LAB HEMETOLOGY METHOD 07/23/2024 9:30 AM [facility] MCV 97.7 79.0 - 98.0 FL LAB HEMETOLOGY METHOD 07/23/2024 9:30 AM EST [facility] MCH 30.8 27.0 - 32.0 pcg LAB HEMETOLOGY METHOD 07/23/2024 9:30 AM [facility] MCHC 31.6(L) 32.0 - 37.0 g/dL LAB HEMETOLOGY METHOD 07/23/2024 9:30 AM EST [facility] RDW 15.0 11.0 - 15.0 % LAB HEMETOLOGY METHOD 07/23/2024 9:30 AM [facility] Platelets 88(L) 130 - 400 K/mcL LAB HEMETOLOGY METHOD 07/23/2024 9:30 AM [facility] Comment:previously verified by slide MPV 9.6 7.0 - 11.0 FL LAB HEMETOLOGY METHOD 07/23/2024 9:30 AM [facility] NRBC 0.0 <1.0 % LAB HEMETOLOGY METHOD 07/23/2024 9:30 AM [facility] NRBC Absolute 0.00 <0.10 K/mcL LAB HEMETOLOGY METHOD 07/23/2024 9:30 AM [facility] Blood Venous blood specimen / Unknown Venipuncture / Unknown 07/23/2024 6:38 AM EST 07/23/2024 8:11 AM EST us Trina Brock MD LAB BLOOD ORDERABLES Fin al Result [facility] [address] [place] [address], documented in this encounter Visit Diagnoses Diagnosis Occlusion and stenosis of left vertebral artery Benign prostatic hyperplasia without lower urinary tract symptoms Atherosclerotic heart disease of [place] coronary artery without angina pectoris Type 2 diabetes mellitus without complications (CMS/HCC V24, CMS/HCC V28) documented in this encounter Care Teams Byproducts Extractor Relationship Specialty Start Date End Date Bong Marino PA [address] [place] [phone] PCP - General Physician Firebrick Layer 11/08/24 documented as of this encounter
[2025-05-16 14:51] LABS: INTERNATIONAL NORM RATIO 1.0 (0.9-1.1); Prothrombin Time 12.5 SEC (11.2-13.5)
[2025-05-16 14:58] LABS: Alanine Aminotransferase 10 U/L (0-40); Albumin Level 3.8 g/dL (3.5-5.0); Alkaline Phosphatase 121 U/L (39-117); Anion Gap 14 (12-20); Aspartate Amino Transferase 27 U/L (5-37); Blood Urea Nitrogen 15 mg/dL (9-16); Calcium 9.1 mg/dL (8.4-10.2); Carbon Dioxide 24 mmol/L (22-29); Chloride 109 mmol/L (96-108); Creatinine Clr Calc Pharmacy 52.5; Estimated Glomerular Filt Rate > 60; Potassium 3.3 mmol/L (3.3-5.1); Sodium 144 mmol/L (135-145); Total Protein 6.1 g/dL (6.5-8.0)
[2025-05-16 15:26] LABS: Erythrocyte Sedimentation Rate 26 MM/HR (0-15)
[2025-05-16 15:28] VITALS: BP 149/101; PULSE 107; RESP 16; TEMP 36.8; O2SAT 98
[2025-05-16 16:07] VITALS: BP 149/101; PULSE 107; RESP 16; TEMP 36.8; O2SAT 98
--- NOTE | 2025-05-16 16:12 | PC.NURSE ---
Patient wanted medications sent to [facility] in [facility] d/t [place] possibly not being open Pharmacy added to chart
== END 2025-05-16 16:24 | disposition home or self-care (01) ==
PROVIDERS: Physician Assistant Medical; Emergency Provider Emergency Medicine; PCP Physician Assistant
DX: M19.041 Primary osteoarthritis, right hand (principal); R60.0 Localized edema; Z79.899 Other long term (current) drug therapy
CPT/HCPCS: 36415; 73130; 80053; 85025; 85610; 85652; 86140; 99283; 99284

== ENCOUNTER → 2025-05-16 13:08 | Outpatient (BNV) | payer MEDICARE, SELFPAY | PROVIDERS: PCP Physician Assistant; Visit Provider Radiology Diagnostic Radiology | DX: M18.11 Unilateral primary osteoarthritis of first carpometacarpal joint, right hand (principal); M79.89 Other specified soft tissue disorders | CPT/HCPCS: 73130 ==

== ENCOUNTER 2025-05-20 11:19 | Outpatient (AMB) | payer OTHER, SELFPAY ==
--- NOTE | 2025-05-20 11:20 | A.OFFVIS_ITS ---
Vital Signs 05/20/25 11:25 Height 5 ft 4 in Weight 140 lb BMI 24.0 Intake Visit Reasons: OV: Hand swelling s/p RT Repeat CTR 01/01/24 AR Intake Note: Jose M is an 85 year old right hand dominant male who presents today for Follow Up status post Right Repeat Carpal Tunnel Release, DOS: 01/01/[address] Pack. Patient walked in today complaining of right hand swelling causing limited range of motion on the dorsal aspect of his right wrist. Patient denies any new injuries to the right injury. Of note, patient walks with a cane and is having difficulty doing so. Allergies Penicillins Allergy (Severe, Verified 05/20/25 11:26) ITCHING-SEVERE piperacillin (From Zosyn) Allergy (Mild, Verified 05/20/25 11:26) JAUNDICE tazobactam (From Zosyn) Allergy (Mild, Verified 05/20/25 11:26) JAUNDICE HPI HPI OV: Hand swelling s/p RT Repeat CTR 01/01/24 AR: Details: Jose M is an 85 year old right hand dominant male who presents today for Follow Up status post Right Repeat Carpal Tunnel Release, DOS: 01/01/[address] Pack. Patient walked in today complaining of right hand swelling causing limited range of motion on the dorsal aspect of his right wrist. Patient denies any new injuries to the right injury. Of note, patient walks with a cane and is having difficulty doing so. Of note, this patient does have a known history of fusion of the right wrist with broken hardware, patient states that this fusion was performed more than 10 years ago at [facility], and he is aware that the surgeon who performed the procedure has . [facility] Medical History Encounter for monitoring leflunomide therapy Long-term use of Plaquenil Symptomatic stenosis of left carotid artery Aortic stenosis Rheumatoid arthritis Carpal tunnel syndrome Former smoker Insulin pump in place Diabetes Elevated cholesterol CAD (coronary artery disease) HTN (hypertension) Surgical History History of left-sided carotid endarterectomy (02/15/23) Hx of carpal tunnel repair Hx of cardiac catheterization History of shoulder surgery History of cholecystectomy History of hand surgery Hx of hemorrhoidectomy Hx of lumbar discectomy H/O colonoscopy Family History Father Heart attack Heart disease Mother Pacemaker Cataracts, bilateral Sister Heart problem Heart valve replaced Arthritis Brother Heart attack Brother Rectal cancer Sister History of modified radical mastectomy of right breast Social History Household Members: None Housing: House Are you a primary career center advisor to a significant other at home: No Do you presently have visiting nurse or other home services: No Alcohol intake: never Patient Tobacco Use Status: Former Tobacco user Tobacco use type: Cigarette Years Smoked: 5 YEARS Advance Directives Date on File: 02/07/23 service: No Current occupational status: employed Current occupation: [employer], rt handed Review of Systems Const All systems reviewed & are unremarkable except as noted in HPI and below Physical Exam Vital Signs: BMI result Body Mass Index 24.0 Extrem Other: Patient is alert, oriented, and in no acute distress. Neuro: Normal sensation of the tips of all digits of the right hand at this time Vascular: Cap refill brisk Pain: Minimal tenderness to palpation of the right wrist Pain with axial loading of the right wrist ROM: Patient is able to flex and extend the right wrist minimally, there is significant pain when doing so Skin: No lacerations or abrasions. General: No ecchymosis, erythema, or evidence of infection. Psych: Appears grossly normal Affect normal Attitude cooperative Results Reviewed Results Reviewed: X-rays obtained in the ED y and independently reviewed by me, Jose Noriega, demonstrate status post fusion of right wrist with broken orthopedic hardware. Assessment & Plan Assessment & Plan (1) Status post fusion of wrist: Code(s): Z98.1 - Arthrodesis status Category: Surgical (2) Right wrist pain: Code(s): M25.531 - Pain in right wrist Category: Medical Plan 1. Status post right wrist fusion with broken hardware DOS approximately 10 years ago Surgery performed at [facility] Patient is educated about this condition Patient is educated about the treatment course At this time, I do feel that there is a chance that the patient's inflammation is due to the broken hardware and possible incomplete fusion of his right wrist, however I feel it is also likely that the patient could be experiencing an RA flare Therefore, CT is ordered to assess the status of fusion, and to determine if any removal of hardware is necessary at this point After CT, patient will follow-up with Dr. Pack Patient understands this and is amenable to this plan Orders: Orders CT wrist RT wo IV con Today M25.531 - Pain in right wrist, Z98.1 - Arthrodesis status Coding Level of Care Code Est Pt Level 3 (17255) Diagnoses Status post fusion of wrist Z98.1 Right wrist pain M25.531
[2025-05-20 11:25] VITALS: BMI 24.0
--- OUTSIDE RECORDS SUMMARY | 2025-05-20 13:29 | XMS_ITS | Clinical Summary ---
Author Organization [facility] Address [address] [place], [place] [id number] Care Team Providers Care Hand Folder Name Role Phone Unknown Primary Care Provider +[id number] -0000 Encounters Date Type Department Care Team Description 04/28/2025 1:34 PM EST - 04/28/2025 11:59 PM EST Hospital Encounter [address] [address] Chris Dalal DO Arthritis of right hand Discharge Disposition: Home or Self Care 04/28/2025 1:17 PM EST - 04/28/2025 1:33 PM EST Hospital Encounter [facility] [address] [address] Chris Dalal DO Other specified arthritis, right hand; Other specified [...] attachedto the bony plate. us Chris Dalal [facility] DIAGNOSTIC IMAGI NG ORDERABLES Final Result * [...] Final Result from Last 3 Months Insurance [facility] Care Teams Hand Folder Relationship Specialty Start Date End Date Unknown Unknow Provider Address PCP - General 04/18/25
== END 2025-05-20 11:58 | disposition home or self-care (01) ==
PROVIDERS: PCP Physician Assistant
DX: M25.531 Pain in right wrist (principal); Z98.1 Arthrodesis status
CPT/HCPCS: 99213

== ENCOUNTER → 2025-05-20 11:19 | Outpatient (BNVA) | payer OTHER, SELFPAY | PROVIDERS: PCP Physician Assistant | DX: M25.531 Pain in right wrist (principal); Z98.1 Arthrodesis status | CPT/HCPCS: 99212 ==

== ENCOUNTER 2025-05-31 10:13 | Outpatient (REF) | payer OTHER, SELFPAY ==
--- NOTE | ~2025-05-31 | CT_ITS ---
EXAMINATION: CT WRIST WITHOUT CONTRAST, RIGHT CLINICAL INFORMATION: Arthrodesis status. Broken hardware in the right wrist. COMPARISON: X-ray 05/16/2025 TECHNIQUE: Axial imaging. Sagittal and coronal reconstructions. This CT examination was performed using dose optimization techniques as appropriate, variously including the following: *Automated exposure control *Adjustment of mA and/or kV according to patient size (this includes techniques or standardized protocols for targeted exams where dose is matched to indication/reason for exam; i.e. extremities or head) *Use of iterative reconstruction technique FINDINGS: Redemonstrated are postsurgical changes with a plate seen extending from the distal radius to the midshaft of the third metacarpal. The plate is fractured at the level of the MCP joint. The 2 proximal screws positioned in the third metacarpal are fractured.. There is no arthrodesis at the third MCP joint. Multifocal arthrodesis is seen.. This includes arthrodesis of the radiocarpal joint.There is arthrodesis of portion of the intercarpal joints, more prominently involving the lunate-capitate, triquetrum-hamate. 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 There is arthritis of the MCP joints. Postsurgical changes with excision of the distal ulna. Chronic calcifications/ossifications distal to the ulna. There is lucency in the distal radius, could be related to site of bone graft harvest, osteopenia. Soft tissue swelling present. Subcutaneous edema present. CT/CT wrist RT wo IV con IMPRESSION: Postsurgical changes, with plate extending from the distal radius to the mid shaft of third metacarpal. There is a fracture of the plate and 2 of the screws, as detailed above. Multifocal arthrodesis present, including involving the radiocarpal, intercarpal joints as detailed above. Additional findings as detailed above. Electronically signed by: Braxton Plascencia MD 06/02/2025 09:19 AM EDI
--- OUTSIDE RECORDS SUMMARY | 2025-05-31 10:16 | XMS_ITS | Clinical Summary ---
Author Organization [facility] Address [address] [place], [place] [id number] Care Team Providers Care Rail Crew Member Name Role Phone Unknown Primary Care Provider +[phone] -0000 Encounters Date Type Department Care Team Description 04/28/2025 1:34 PM EST - 04/28/2025 11:59 PM EST Hospital Encounter [address] [address] Chris Dalal DO Arthritis of right hand Discharge Disposition: Home or Self Care 04/28/2025 1:17 PM EST - 04/28/2025 1:33 PM EST Hospital Encounter [facility] [address] [address] Chris Dalal DO Other specified arthritis, right [...] attachedto the bony plate. us Chris Dalal [facility] DIAGNOSTIC IMAGI NG ORDERABLES Final Result * [...] Final Result from Last 3 Months Insurance [facility] Care Teams Rail Crew Member Relationship Specialty Start Date End Date Unknown Unknow Provider Address PCP - General 04/18/25
--- OUTSIDE RECORDS SUMMARY | 2025-05-31 10:17 | XMS_ITS | Encounter Summary ---
Author Organization [facility] Address [address] [place] [address] Care Team Providers Care Pole Inspector Name Role Phone Bong Marino Primary Care Provider [phone] Encounter Details Date Type Department Care Team (Late st Contact Info) Description 07/13/2024 Lab Requisition [facility] - Main Lab [address] [facility] [place] [address] Trina Brock MD [address] [place] [address] [phone] Other cardiologist (current) drug therapy Social History Tobacco Use [...] Description 06/23/2025 11:30 AM EST Office Visit [facility] [address] [place] [phone] Emmie Pickens NP [facility] [place] [address] documented as of this encounter Procedures Procedure Name Priority Date/Time Associated Diagnosis Comments CBC WITH AUTO DIFFERENTIAL Routine 07/13/2024 7:29 AM EST Other mcc (current) drug therapy CBC AND DIFFERENTIAL Routine 07/13/2024 7:29 AM EST Other mcc (current) drug therapy BASIC METABOLIC PANEL Routine 07/13/2024 7:29 AM EST Other cardiologist (current) drug therapy documented in this encounter Results * (ABNORMAL) CBC auto differential (07/13/2024 7:29 AM EST) WBC 2.2(L) 4.8 - 10.8 K/mcL LAB HEMETOLOGY METHOD 07/13/2024 10:20 AM [facility] RBC 3.20(L) 4.50 - 5.50 M/mcL LAB HEMETOLOGY METHOD 07/13/2024 10:20 AM [facility] Hemoglobin 10.0(L) 13.5 - 17.5 g/dL LAB HEMETOLOGY METHOD 07/13/2024 10:20 AM [facility] Hematocrit 30.1(L) 42.0 - 54.0 % LAB HEMETOLOGY METHOD 07/13/2024 10:20 AM [facility] MCV 93.8 79.0 - 98.0 FL LAB HEMETOLOGY METHOD 07/13/2024 10:20 AM [facility] MCH 31.2 27.0 - 32.0 pcg LAB HEMETOLOGY METHOD 07/13/2024 10:20 AM [facility] MCHC 33.2 32.0 - 37.0 g/dL LAB HEMETOLOGY METHOD 07/13/2024 10:20 AM [facility] RDW 14.6 11.0 - 15.0 % LAB HEMETOLOGY METHOD 07/13/2024 10:20 AM [facility] Platelets 85(L) 130 - 400 K/mcL LAB HEMETOLOGY METHOD 07/13/2024 10:20 AM [facility] Comment:reviewed by slide MPV 8.7 7.0 - 11.0 FL LAB HEMETOLOGY METHOD 07/13/2024 10:20 AM [facility] NRBC 0.0 <1.0 % LAB HEMETOLOGY METHOD 07/13/2024 10:20 AM [facility] NRBC Absolute 0.00 <0.10 K/mcL LAB HEMETOLOGY METHOD 07/13/2024 10:20 AM [facility] Neutrophils Relative 43.6 % LAB HEMETOLOGY METHOD 07/13/2024 10:20 AM [facility] Lymphocytes Relative 28.9 % LAB HEMETOLOGY METHOD 07/13/2024 10:20 AM [facility] Monocytes Relative 23.9 % LAB HEMETOLOGY METHOD 07/13/2024 10:20 AM [facility] Eosinophils Relative 1.8 % LAB HEMETOLOGY METHOD 07/13/2024 10:20 AM [facility] Basophils Relative 1.8 % LAB HEMETOLOGY METHOD 07/13/2024 10:20 AM [facility] Immature Granulocytes Relative 0.0 % LAB HEMETOLOGY METHOD 07/13/2024 10:20 AM [facility] Neutrophils Absolute 0.95(L) 1.50 - 7.00 K/mcL LAB HEMETOLOGY METHOD 07/13/2024 10:20 AM [facility] Lymphocytes Absolute 0.63(L) 1.00 - 5.00 K/mcL LAB HEMETOLOGY METHOD 07/13/2024 10:20 AM [facility] Monocytes Absolute 0.52 0.20 - 1.00 K/mcL LAB HEMETOLOGY METHOD 07/13/2024 10:20 AM EST [facility] Eosinophils Absolute 0.04 0.00 - 0.50 K/[facility] LAB HEMETOLOGY METHOD 07/13/2024 10:20 AM EST [facility] Basophils Absolute 0.04 0.00 - 0.20 K/mcL LAB HEMETOLOGY METHOD 07/13/2024 10:20 AM EST [facility] Immature Granulocytes Absolute 0.00 0.00 - 0.03 [facility] LAB HEMETOLOGY METHOD 07/13/2024 10:20 AM [facility] Blood Venous blood specimen / Unknown Venipuncture / Unknown 07/13/2024 7:29 AM EST 07/13/2024 9:03 AM EST Trina Brock MD LAB BLOOD ORDERABLES Fin al Result [facility] [address] [place] [address], * (ABNORMAL) Basic metabolic panel (07/13/2024 7:29 AM EST) Sodium 145 133 - 145 mmol/L LAB CHEMISTRY METHOD 07/13/2024 9:54 AM [facility] Potassium 3.0(L) 3.5 - 5.5 mmol/L LAB CHEMISTRY METHOD 07/13/2024 9:54 AM [facility] Chloride 114(H) 96 - 110 mmol/L LAB CHEMISTRY METHOD 07/13/2024 9:54 AM [facility] CO2 25 21 - 32 mmol/L LAB CHEMISTRY METHOD 07/13/2024 9:54 AM [facility] Anion Gap 6 3 - 11 LAB CHEMISTRY METHOD 07/13/2024 9:54 AM [facility] Glucose 151(H) 70 - 100 mg/dL LAB CHEMISTRY METHOD 07/13/2024 9:54 AM EST [facility] BUN 5 5 - 25 mg/dL LAB CHEMISTRY METHOD 07/13/2024 9:54 AM [facility] Creatinine 0.49(L) 0.70 - 1.30 mg/dL LAB CHEMISTRY METHOD 07/13/2024 9:54 AM [facility] eGFR 100 >=60 mL/min/1. 73m2 LAB CHEMISTRY METHOD 07/13/2024 9:54 AM [facility] Comment:Calculation based on the Chronic Kidney Disease Epidemiology Collaboration (CKD-EPI) equation refit without adjustment for race. BUN/Creatinine Ratio 10.2 LAB CHEMISTRY METHOD 07/13/2024 9:54 AM [facility] Calcium 7.6(L) 8.5 - 10.5 mg/dL LAB CHEMISTRY METHOD 07/13/2024 9:54 AM [facility] Blood Venous blood specimen / Unknown Venipuncture / Unknown 07/13/2024 7:29 AM EST 07/13/2024 9:03 AM EST us Trina Brock MD LAB BLOOD ORDERABLES Fin al Result [facility] [address] [place] [address], documented in this encounter Visit Diagnoses Diagnosis Other cardiologist (current) drug therapy documented in this encounter Care Teams Pole Inspector Relationship Specialty Start Date End Date Bong Marino PA [address] [place] [address] PCP - General Physician Hoistman 11/08/24 documented as of this encounter
--- OUTSIDE RECORDS SUMMARY | 2025-05-31 10:17 | XMS_ITS | Encounter Summary ---
Author Organization [facility] Address [address] [place] [address] Care Team Providers Care Box Office Clerk Name Role Phone Bong Marino Primary Care Provider [phone] Encounter Details Date Type Department Care Team (Late st Contact Info) Description 07/18/2024 Lab Requisition [facility] - Main Lab [address] [place] [place] [address] Trina Brock MD [address] [address] Benign prostatic hyperplasia without lower urinary tract symptoms; Atherosclerotic heart disease of [place] coronary artery without angina pectoris; Occlusion and stenosis of left vertebral artery; longterm (current) use of anticoagulants; Type 2 diabetes mellitus without complications ([facility]/HCC V24, [facility]/HCC V28) Social History Tobacco Use Types Packs/Day [...] Description 06/23/2025 11:30 AM EST Office Visit [facility] - [facility] [address] [place] [phone] Emmie Pickens NP [address] [place] [address] [address] [place] [phone] documented as of this encounter Procedures Procedure Name Priority Date/Time Associated Diagnosis Comments COMPLETE BLOOD COUNT Routine 07/18/2024 6:05 AM EST Benign prostatic hyperplasia without lower urinary tract symptoms 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 Type 2 diabetes mellitus without complications (CMS/HCC) BASIC METABOLIC PANEL Routine 07/18/2024 6:05 AM EST Benign prostatic hyperplasia without lower urinary tract symptoms 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 longterm (current) use of anticoagulants Type 2 diabetes mellitus without complications (CMS/HCC) documented in this encounter Results * (ABNORMAL) Basic metabolic panel (07/18/2024 6:05 AM EST) Sodium 141 133 - 145 mmol/L LAB CHEMISTRY METHOD 07/18/2024 8:06 AM [facility] Potassium 3.4(L) 3.5 - 5.5 mmol/L LAB CHEMISTRY METHOD 07/18/2024 8:06 AM [facility] Chloride 107 96 - 110 mmol/L LAB CHEMISTRY METHOD 07/18/2024 8:06 AM [facility] CO2 31 21 - 32 mmol/L LAB CHEMISTRY METHOD 07/18/2024 8:06 AM [facility] Anion Gap 3 3 - 11 LAB CHEMISTRY METHOD 07/18/2024 8:06 AM [facility] Glucose 143(H) 70 - 100 mg/dL LAB CHEMISTRY METHOD 07/18/2024 8:06 AM [facility] BUN 8 5 - 25 mg/dL LAB CHEMISTRY METHOD 07/18/2024 8:06 AM [facility] Creatinine 0.66(L) 0.70 - 1.30 mg/dL LAB CHEMISTRY METHOD 07/18/2024 8:06 AM [facility] eGFR 91 >=60 mL/min/1. 73m2 LAB CHEMISTRY METHOD 07/18/2024 8:06 AM [facility] Comment:Calculation based on the Chronic Kidney Disease Epidemiology Collaboration (CKD-EPI) equation refit without adjustment for race. BUN/Creatinine Ratio 12.1 LAB CHEMISTRY METHOD 07/18/2024 8:06 AM [facility] Calcium 8.3(L) 8.5 - 10.5 mg/dL LAB CHEMISTRY METHOD 07/18/2024 8:06 AM [facility] Blood Venous blood specimen / Unknown Venipuncture / Unknown 07/18/2024 6:05 AM EST 07/18/2024 6:37 AM EST us Trina Brock MD LAB BLOOD ORDERABLES Fin al Result [facility] [address] [place] [address], * (ABNORMAL) Complete blood count (07/18/2024 6:05 AM EST) WBC 2.8(L) 4.8 - 10.8 K/mcL LAB HEMETOLOGY METHOD 07/18/2024 8:35 AM [facility] RBC 3.10(L) 4.50 - 5.50 M/mcL LAB HEMETOLOGY METHOD 07/18/2024 8:35 AM [facility] Hemoglobin 9.6(L) 13.5 - 17.5 g/dL LAB HEMETOLOGY METHOD 07/18/2024 8:35 AM [facility] Hematocrit 29.9(L) 42.0 - 54.0 % LAB HEMETOLOGY METHOD 07/18/2024 8:35 AM EST [facility] MCV 96.8 79.0 - 98.0 FL LAB HEMETOLOGY METHOD 07/18/2024 8:35 AM EST [facility] MCH 31.1 27.0 - 32.0 pcg LAB HEMETOLOGY METHOD 07/18/2024 8:35 AM EST [facility] MCHC 32.1 32.0 - 37.0 g/dL LAB HEMETOLOGY METHOD 07/18/2024 8:35 AM EST [facility] RDW 16.1(H) 11.0 - 15.0 % LAB HEMETOLOGY METHOD 07/18/2024 8:35 AM [facility] Platelets 83(L) 130 - 400 K/mcL LAB HEMETOLOGY METHOD 07/18/2024 8:35 AM EST [facility] Comment:previously verified by slide MPV 9.4 7.0 - 11.0 FL LAB HEMETOLOGY METHOD 07/18/2024 8:35 AM EST [facility] NRBC 0.0 <1.0 % LAB HEMETOLOGY METHOD 07/18/2024 8:35 AM [facility] NRBC Absolute 0.00 <0.10 K/mcL LAB HEMETOLOGY METHOD 07/18/2024 8:35 AM [facility] Blood Venous blood specimen / Unknown Venipuncture / Unknown 07/18/2024 6:05 AM EST 07/18/2024 6:37 AM EST us Trina Brock MD LAB BLOOD ORDERABLES Fin al Result [facility] [address] [place] [address], documented in this encounter Visit Diagnoses Diagnosis Benign prostatic hyperplasia without lower urinary tract symptoms 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
--- OUTSIDE RECORDS SUMMARY | 2025-05-31 10:17 | XMS_ITS | Encounter Summary ---
Author Organization [facility] Address [address] [place] [address] Care Team Providers Care Java Development Manager Name Role Phone Bong Marino Primary Care Provider [phone] Encounter Details Date Type Department Care Team (Late st Contact Info) Description 03/28/2025 Results Follow-Up [facility] Cardiology [facility] [address] [facility] [facility] [address] [place] [phone] Emmie Pickens NP [address] [place] [address] Dr [address] [place] [phone] Social History Tobacco Use Types Packs/Day Years [...] Description 06/23/2025 11:30 AM EST Office Visit [facility]iology [facility] Dr [facility]ta [facility] [address] [place] [phone] Emmie Pickens NP [address] [place] [address] [address] documented as of this encounter Visit Diagnoses Not on filedocumented in this encounter Care Teams Java Development Manager Relationship Specialty Start Date End Date Bong Marino PA [address] [place] [address] PCP - General Physician Medical Technologist Clinical 11/08/24 documented as of this encounter
--- OUTSIDE RECORDS SUMMARY | 2025-05-31 10:17 | XMS_ITS | Clinical Summary ---
Author Organization Pending Sale To [facility] Address [facility] [place] [address] Care Team Providers Care Porcelain Technician Name Role Phone Veronica Salmeron MD Primary Care Provider [phone] Social History Tobacco Use Types Packs/Day Years [...] - Influenza standard series) 02/17/2025 Care Teams Porcelain Technician Relationship Specialty Start Date End Date Veronica Salmeron MD [facility] [address] [place] [address] PCP - General 05/11/10
--- OUTSIDE RECORDS SUMMARY | 2025-05-31 10:17 | XMS_ITS | Encounter Summary ---
Author Organization [facility] Address [address] [place] [address] Care Team Providers Care Emergency Response Officer Name Role Phone Bong Marino Primary Care Provider [phone] Encounter Details Date Type Department Care Team (Late st Contact Info) Description 07/29/2024 Lab Requisition [facility] - Main Lab [address] [facility] [place] [address] Trina Brock MD [address] [address] Type 2 diabetes mellitus without complications (CMS/HCC V24, CMS/HCC V28); Atherosclerotic heart disease of [place] coronary artery without angina pectoris; Benign prostatic [...] Description 06/23/2025 11:30 AM EST Office Visit [facility] - [facility] [address] [place] [phone] Emmie Pickens, PATTI [address] [place] [address] Dr [address] [place] [address] documented as of this encounter Visit Diagnoses Diagnosis Type 2 diabetes mellitus without complications ([facility] V24, [facility] V28) Atherosclerotic heart disease of [place] coronary artery without angina pectoris Benign prostatic hyperplasia without lower urinary tract symptoms Occlusion and stenosis of left vertebral artery documented in this encounter Care Teams Emergency Response Officer Relationship Specialty Start Date End Date Bong Marino PA [address] [place] [address] PCP - General Physician Glue Wheel Operator 11/08/24 documented as of this encounter
--- OUTSIDE RECORDS SUMMARY | 2025-05-31 10:17 | XMS_ITS | Clinical Summary ---
Author Organization [address] [facility] Address [address] [place] [address] Phone Care Team Providers Care Line Clearance Foreman Name Role Phone Bong Marino Primary Care Provider [phone] Allergies Active Allergy Reactions Criticality Noted Date [...] we will arrange for a 24 hr cnc laser operator today. We will assess for any significant [...] Description 04/09/2025 9:10 AM EDT Office Visit [facility] Dr [facility] [address] [place] [address] Emmie Pickens NP Coronary artery disease involving coqu[place] coronary artery of [place]qu[place] heart without angina pectoris (Primary Dx); Primary hypertension; Mixed hyperlipidemia; History of transcatheter aortic valve replacement (TAVR); Nonrheumatic mitral valve stenosis 03/28/2025 Results Follow-Up [facility] Dr [address]ta [facility] [address] [place] [address] Emmie Pickens NP 03/27/2025 9:10 AM EDT Office Visit [facility] [address] [place] [address] Emmie Pickens NP Coronary artery disease involving coquille coronary artery of [place]qu[place] heart without angina pectoris (Primary Dx); Primary hypertension; Mixed hyperlipidemia; History of transcatheter aortic valve replacement (TAVR) 03/17/2025 Telephone [facility] [place] [address] [place] [address] Katherin Sargent MD 03/06/2025 6:58 AM EDT - 03/06/2025 11:59 PM EDT Hospital Encounter [facility] Interventional Radiology [address] [place] [address] Spondylosis of lumbosacral region without myelopathy or radiculopathy Discharge Disposition: Home or Self Care 03/03/2025 Telephone [facility] [address] [place] [address] Dejuan Grider MD from Last 3 Months [...] COMMENT: colonoscopy SPINE SURGERY lumbar fusion with [facility] Medical History Medical History Date Comments Carpal [...] on file Sexual Orientation Not on file Last Filed Vital Signs Vital Sign Reading [...] Description 06/23/2025 11:30 AM EST Office Visit [facility] [address] [place] [phone] Emmie Pickens NP [address] [place] [address] Dr [address] [place] [phone] Health Maintenance Due Date Last Done Comments [...] Completed 09/27/2021, 0809/2019, 10/08/2010, Additional history exists RSV Immunization Adult [...] this topic Medical Devices Implanted Type Area Windows Application Packager Device Identifier Shelf Expiration Date Model / Serial / Lot [employer] Xped[employer] Bone Cement - [id number] Implanted:Qty: 1 on 03/06/2025 by Yann Velasquez MD at [facility] Bone Cement Right: Sacrum [employer] [id number] 12/16/2026 CX01B / / [id number] [employer] Xpede Bone Cement - [id number] Implanted:Qty: 1 on 03/06/2025 by Yann Velasquez MD at [facility] Bone Cement Left: Sacrum [employer] [id number] 07/19/2027 CX01B / / [id number] Procedures Procedure Name Priority Date/Time Associated Diagnosis Comments CBC WITH AUTO DIFFERENTIAL Routine 03/27/2025 9:48 AM EDT Coronary artery disease involving coqu[place] coronary artery of [place] heart without angina pectoris Primary hypertension CBC AND DIFFERENTIAL Routine 03/27/2025 9:48 AM EDT Coronary artery disease involving [place]qu[place] coronary artery of [place]qu[place] heart without angina pectoris Primary hypertension COMPREHENSIVE METABOLIC PANEL Routine 03/27/2025 9:48 AM EDT Coronary artery disease involving coqu[place] coronary artery of [place]qu[place] heart without angina pectoris Primary hypertension IR [...] - 03/27/2025 10:06 PM EDT Performed at: [address] [place] [id number] Tube Balancer: Leydi Jalloh MD, Phone: [phone] us Emmie Pickens CARTON GLUING MACHINE OPERATOR LAB BLOOD ORDERABLES Final R esult [facility] 1 * (ABNORMAL) Comprehensive metabolic panel (03/27/2025 9:48 AM EDT) Pathologist [facility] Glucose 90 70 - 99 mg/dL [facility] [...] 1:06 AM EDT Performed at: 01 - [facility] [address] [id number] Tube Balancer: Leydi Jalloh MD, Phone: [phone] Specimen Comment: A courtesy copy of this report has been sent to the patient us Emmie Pickens CARTON GLUING MACHINE OPERATOR LAB BLOOD ORDERABLES Final R esult [...] Signed Date: 03/06/2025 13:07 ET Workstation ID: [id number] Transcribed By: Self Edit Transcribed Date: 03/06/2025 [...] Signed Date: 03/06/2025 13:07 ET Workstation ID: [id number] Transcribed By: Self Edit Transcribed Date: 03/06/2025 12:58 ET Katherin Sargent MD IMG IR PROCEDURES Final Result * Hemoglobin A1c (12/12/2023) [...] Recently Relevant to Health Maintenance Insurance MEDICARE [facility] Care Teams Line Clearance Foreman Relationship Specialty Start Date End Date Bong Marino PA [address] [place] [address] PCP - General Physician Control Technician 11/08/24
--- OUTSIDE RECORDS SUMMARY | 2025-05-31 10:17 | XMS_ITS | Encounter Summary ---
Author Organization [facility] Address [address] [place] [address] Care Team Providers Care Ski Binding Fitter And Repairer Name Role Phone Bong Marino Primary Care Provider [phone] Encounter Details Date Type Department Care Team (Late st Contact Info) Description 07/22/[address] [facility] - Main Lab [address] [facility] [place] [address] Trina Brock MD [address] [address] Occlusion and stenosis of left vertebral artery; Benign prostatic hyperplasia without lower urinary tract symptoms; Atherosclerotic heart disease of [place] coronary artery without angina pectoris; Type 2 diabetes mellitus without complications ([facility] V24, [facility] V28) Social History Tobacco Use [...] Description 06/23/2025 11:30 AM EST Office Visit [facility] [address] [place] [phone] Emmie Pickens NP [address] [place] [address] [address] [place] [phone] documented as of this encounter Procedures Procedure Name Priority Date/Time Associated Diagnosis Comments COMPLETE BLOOD COUNT Routine 07/23/2024 6:38 AM EST Occlusion and stenosis of left vertebral artery Benign prostatic hyperplasia without lower urinary tract symptoms Atherosclerotic heart disease of [place] coronary artery without angina pectoris Type 2 diabetes mellitus without complications (CMS/HCC) BASIC METABOLIC PANEL Routine 07/23/2024 6:38 AM EST Occlusion and stenosis of left vertebral artery Benign prostatic hyperplasia without lower urinary tract symptoms Atherosclerotic heart disease of [place] coronary artery without angina pectoris Type 2 diabetes mellitus without complications (CMS/HCC) documented in this encounter Results * (ABNORMAL) Basic metabolic panel (07/23/2024 6:38 AM EST) Sodium 142 133 - 145 mmol/L LAB CHEMISTRY METHOD 07/23/2024 9:46 AM [facility] Potassium 3.4(L) 3.5 - 5.5 mmol/L LAB CHEMISTRY METHOD 07/23/2024 9:46 AM [facility] Chloride 107 96 - 110 mmol/L LAB CHEMISTRY METHOD 07/23/2024 9:46 AM [facility] CO2 28 21 - 32 mmol/L LAB CHEMISTRY METHOD 07/23/2024 9:46 AM [facility] Anion Gap 7 3 - 11 LAB CHEMISTRY METHOD 07/23/2024 9:46 AM [facility] Glucose 126(H) 70 - 100 mg/dL LAB CHEMISTRY METHOD 07/23/2024 9:46 AM [facility] BUN 9 5 - 25 mg/dL LAB CHEMISTRY METHOD 07/23/2024 9:46 AM [facility] Creatinine 0.67(L) 0.70 - 1.30 mg/dL LAB CHEMISTRY METHOD 07/23/2024 9:46 AM EST [facility] eGFR 91 >=60 mL/min/1. 73m2 LAB CHEMISTRY METHOD 07/23/2024 9:46 AM [facility] Comment:Calculation based on the Chronic Kidney Disease Epidemiology Collaboration (CKD-EPI) equation refit without adjustment for race. BUN/Creatinine Ratio 13.4 LAB CHEMISTRY METHOD 07/23/2024 9:46 AM [facility] Calcium 8.6 8.5 - 10.5 mg/dL LAB CHEMISTRY METHOD 07/23/2024 9:46 AM [facility] Blood Venous blood specimen / Unknown Venipuncture / Unknown 07/23/2024 6:38 AM EST 07/23/2024 8:11 AM EST Trina Brock MD LAB BLOOD ORDERABLES Fin al Result [facility] [address] [place] [address], * (ABNORMAL) Complete blood count (07/23/2024 6:38 AM EST) WBC 2.8(L) 4.8 - 10.8 K/mcL LAB HEMETOLOGY METHOD 07/23/2024 9:30 AM [facility] RBC 3.50(L) 4.50 - 5.50 M/mcL LAB HEMETOLOGY METHOD 07/23/2024 9:30 AM [facility] Hemoglobin 10.7(L) 13.5 - 17.5 g/dL LAB HEMETOLOGY METHOD 07/23/2024 9:30 AM [facility] Hematocrit 33.9(L) 42.0 - 54.0 % LAB HEMETOLOGY METHOD 07/23/2024 9:30 AM [facility] MCV 97.7 79.0 - 98.0 FL LAB HEMETOLOGY METHOD 07/23/2024 9:30 AM EST [facility] MCH 30.8 27.0 - 32.0 pcg LAB HEMETOLOGY METHOD 07/23/2024 9:30 AM [facility] MCHC 31.6(L) 32.0 - 37.0 g/dL LAB HEMETOLOGY METHOD 07/23/2024 9:30 AM EST [facility] RDW 15.0 11.0 - 15.0 % LAB HEMETOLOGY METHOD 07/23/2024 9:30 AM [facility] Platelets 88(L) 130 - 400 K/mcL LAB HEMETOLOGY METHOD 07/23/2024 9:30 AM [facility] Comment:previously verified by slide MPV 9.6 7.0 - 11.0 FL LAB HEMETOLOGY METHOD 07/23/2024 9:30 AM [facility] NRBC 0.0 <1.0 % LAB HEMETOLOGY METHOD 07/23/2024 9:30 AM [facility] NRBC Absolute 0.00 <0.10 K/mcL LAB HEMETOLOGY METHOD 07/23/2024 9:30 AM [facility] Blood Venous blood specimen / Unknown Venipuncture / Unknown 07/23/2024 6:38 AM EST 07/23/2024 8:11 AM EST us Trina Brock MD LAB BLOOD ORDERABLES Fin al Result [facility] [address] [place] [address], documented in this encounter Visit Diagnoses Diagnosis Occlusion and stenosis of left vertebral artery Benign prostatic hyperplasia without lower urinary tract symptoms Atherosclerotic heart disease of [place] coronary artery without angina pectoris Type 2 diabetes mellitus without complications (CMS/HCC V24, CMS/HCC V28) documented in this encounter Care Teams Ski Binding Fitter And Repairer Relationship Specialty Start Date End Date Bong Marino PA [address] [place] [phone] PCP - General Physician Resources Representative 11/08/24 documented as of this encounter
== END 2025-05-31 10:14 | disposition home or self-care (01) ==
LOC: HO.CT 10:13
PROVIDERS: PCP Physician Assistant
DX: M25.531 Pain in right wrist (principal); Z98.1 Arthrodesis status
CPT/HCPCS: 73200

== ENCOUNTER → 2025-05-31 10:15 | Outpatient (BNV) | payer OTHER, SELFPAY | PROVIDERS: PCP Physician Assistant; Visit Provider Radiology Diagnostic Ultrasound | DX: Z98.1 Arthrodesis status (principal) | CPT/HCPCS: 73200 ==

== ENCOUNTER 2025-06-04 19:14 | Inpatient (IN) | payer OTHER, SELFPAY ==
--- NOTE | ~2025-06-04 | CT_ITS ---
CLINICAL HISTORY: ams CT head without contrast Comparison: CT/REG/SR - CT HEAD/BRAIN WO IV CON - 06/01/23 23:57 EST Findings: There is age-appropriate atrophy. The size and shape of the ventricular system is within normal limits for this degree of atrophy. Mild low-attenuation within the periventricular and deep white matter is unchanged compared to prior study. Tiny bilateral basal ganglia lacunar infarcts are unchanged. No new areas of abnormal attenuation are identified within the brain parenchyma. Wang-white differentiation is preserved. No midline shift or mass effect. No intracranial hemorrhage. Moderate mucosal thickening throughout the visualized portions of the paranasal sinuses. Small amount of fluid within the left mastoid air cells. IMPRESSION: 1. No acute intracranial findings. Specifically, no hemorrhage or acute territorial infarct. 2. Moderate mucosal thickening throughout the paranasal sinuses with small left mastoid effusion. This document has been electronically signed by: Chris Ferrari MD on 06/04/2025 22:22:25
--- NOTE | ~2025-06-04 | US_ITS ---
EXAMINATION: US ABDOMEN LIMITED HISTORY: RUQ tender, fever, ?stone TECHNIQUE: Real-time grayscale ultrasound imaging of the right upper quadrant was performed and images were reviewed. COMPARISON: Correlation is made with a CT of the abdomen with contrast dated 06/04/2025. FINDINGS: The examination is limited by lack of patient cooperation. Liver: The liver is normal in size. The liver demonstrates normal homogeneous echotexture. No focal mass is identified. There is mild intrahepatic biliary ductal dilatation. There is normal hepatopedal flow in the portal vein. Gallbladder and biliary tree: The gallbladder is surgically absent. The common bile duct is dilated, measuring 12 mm diameter. Pancreas: The pancreatic head, neck, and body are unremarkable. The pancreatic tail is obscured by bowel gas. US/US abdomen limited IMPRESSION: Intra and extrahepatic biliary ductal dilatation. If there is clinical concern for choledocholithiasis, MRCP could be performed. Electronically signed by: Dedrick Perez MD 06/05/2025 10:45 AM EDI
--- NOTE | ~2025-06-04 | CT_ITS ---
CLINICAL HISTORY: sepsis CT chest with contrast Comparison: CR - XR CHEST 1V - 06/04/25 20:[address]/SR - CT CHEST WITHOUT IV CONTRAST - 10/01/24 10:04 EDT Findings: Trachea and mainstem bronchi are patent. Bronchial wall thickening within the lingula and bilateral lower lobes with areas of consolidation within the dependent portion of the lower lobes bilaterally. There is a combination of emphysematous changes and thickening of the interlobular septa within the lung bases. Small bilateral pleural effusions. No pneumothorax. Moderate vascular calcification of the thoracic aorta. Aortic valve prostheses is in place. There is hypertrophy of the left ventricular wall and interventricular septum. Moderate coronary artery calcification. Trace pericardial effusion. Subcentimeter mediastinal and bilateral hilar lymph nodes. Multilevel degenerative disc disease and degenerative facet disease is seen within the thoracic spine. Unchanged compression fractures along the inferior endplates of T7 and T9. IMPRESSION: 1. Bronchial wall thickening with areas of consolidation within the dependent portion of the lower lobes bilaterally. This may be related to multifocal bronchitis/bronchiolitis or volume overload. This document has been electronically signed by: Chris Ferrari MD on 06/04/2025 22:59:16
--- NOTE | ~2025-06-04 | XR_ITS ---
CLINICAL HISTORY: sob 1 view chest x-ray. Comparison: 02/17/2024 Findings: No consolidation or effusion. Cardiac and mediastinal contours appear stable. Bones unremarkable. Impression: 1. No acute pulmonary disease. This document has been electronically signed by: Pj Leonard MD on 06/04/2025 20:28:15
--- NOTE | ~2025-06-04 | CT_ITS ---
CLINICAL HISTORY: sepsis CT abdomen and pelvis with contrast Comparison: CT/REG/SR - CT CHEST W IV CON - 06/04/25 22:[address]/IL/SR - CT ANGIO ABDOMEN PELVIS - 07/05/24 14:23 EST Findings: Please refer to the patient's separately dictated CT of the chest from same time for information regarding findings within the lower chest. CT abdomen: Gallbladder is surgically absent. Continued dilation of both the intrahepatic and extrahepatic biliary tree. This is more pronounced within the intrahepatic biliary system than on prior study with intrahepatic bile ducts being dilated at 12 mm. Common bile duct remains dilated to 20 mm with abrupt cutoff at the distal common bile duct. No discrete hepatic mass lesion. Main portal vein is patent. Small splenule. Spleen is otherwise unremarkable. Pancreas is atrophic without mass or peripancreatic inflammatory stranding. Adrenal glands and kidneys are unremarkable for acute findings. Extensive vascular calcification of the abdominal aorta, mesenteric arteries, renal arteries, and iliac artery. 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 Fluid-filled loops of nondilated small bowel. Free air seen on prior study is no longer identified. No focal fluid collection. CT pelvis: Urinary bladder is mildly distended with Olguin catheter in place. Areas seen within the nondependent portion of the urinary bladder. Bladder wall thickening measures 12 mm with perivesicular induration. Scattered diverticuli throughout the colon. No findings of diverticulitis. No dilated small bowel. No free fluid or free air. Skeletal system: Spinal fusion hardware spans from L2 to the sacrum. There severe adjacent segment disease at L1-2. No acute fracture. Sclerosis within the S2 and S3 vertebral bodies is indicative of interval sacral fracture. Patient has undergone interval sacral plasty bilaterally. IMPRESSION: 1. Biliary dilation has progressed since prior study with potential filling defects of the distal common bile duct. Correlation with the patient's bilirubin level suggested. MRCP suggested for further evaluation. 2. Prominent wall thickening of the urinary bladder with perivesicular induration suggestive of cystitis. This could be the etiology of the patient's sepsis. 3. Bony findings as above. This document has been electronically signed by: Chris Ferrari MD on 06/04/2025 23:07:59
[2025-06-04 19:19] VITALS: BP 188/100; BP 199/109; PULSE 104; RESP 20; TEMP 38.8; O2SAT 99; BMI 18.2
--- NOTE | 2025-06-04 19:29 | ED_ITS ---
HPI - General Adult General Chief complaint: Altered Mental Status Stated complaint: ams, ?sepsis Time Seen by Provider: 06/04/25 19:29 Source: patient Mode of arrival: ambulatory Limitations: no limitations History of Present Illness ED Provider: Dr. Zamora [facility] narrative: This is a 85-year-old male history of diabetes, thrombocytopenia, CAD presenting to ER today for evaluation of altered mentation. Patient was not seen by family for 2 days. Was found in bed altered mental status. History is limited due to patient's altered mentation. Related Data Home Medications ?Medication ?Instructions ?Recorded ?Confirmed Novolog U-100 Insulin aspart 0 units subcut (via weara ble 06/01/20 07/31/24 injectr) DAILY tamsulosin 0.4 mg capsule 0.4 mg PO BEDTIME 06/24/22 0 07/31/24 vitamins A,C,Q-wtvg-ybfekn 4,296 1 cap PO BID 06/24/22 07/31/24 mcg-226 mg-90 mg capsule (PreserVision AREDS) acetaminophen 650 mg 650 mg PO Q8H PRN Pain 09/0601/30/25 tablet,extended release (Tylenol 8 Hour) cyclobenzaprine 10 mg tablet 10 mg PO DAILY 09/06/22 0 01/30/25 cholecalciferol (vitamin D3) 50 50 mcg PO BID 11/21/22 01/30/25 mcg (2,000 unit) capsule calcium citrate 1,600 mg PO BID 12/24/22 furosemide 20 mg tablet mg PO 08/22/23 07/31/24 atorvastatin 10 mg tablet (Lipitor) 10 mg PO DAILY 04/1201/30/25 buprenorphine 20 mcg/hour weekly 1 patch transdermal Q WEEK 03/11/25 transdermal patch Previous Rx's ?Medication ?Instructions ?Recorded aspirin 81 mg tablet,delayed 81 mg PO DAILY #90 tabs 0 02/10/23 release pilocarpine HCl 5 mg tablet 5 mg PO BID #180 tabs 07/21 11/10 gabapentin 600 mg tablet 600 mg PO TID #270 tabs 10/17 09/10 hydroxychloroquine 200 mg tablet See Rx Instructions P O .COMPLEX 10/29/24 #108 tabs leflunomide 20 mg tablet 20 mg PO DAILY #90 tabs 10/17 09/10 ibuprofen 800 mg tablet 800 mg PO TID 10 days #30 ta bs 11/12/24 esomeprazole magnesium 20 mg 20 mg PO DAILY #90 caps 1 capsule,delayed release simethicone 125 mg chewable tablet 125 mg PO QID PRN a bdominal 04/07/25 (Gas Relief (simethicone)) distention #90 tabs prednisone 2.5 mg tablet 2.5 mg PO DAILY #90 tabs celecoxib 100 mg capsule (Celebrex) 100 mg PO BID 2 we eks #28 caps 05/16/25 Allergies Allergy/AdvReac Type Severity Reaction Status Date / Time Penicillins Allergy Severe ITCHING-SEV Verified 06/04/25 19:28 ERE piperacillin (From Zosyn) Allergy Mild JAUNDICE Verified 06/04/25 19:28 tazobactam (From Zosyn) Allergy Mild JAUNDICE Verified 06/04/25 19:28 Review of Systems 2 Review of Systems: Unable to obtain due to her his altered mentation [facility] Past Medical History [facility] Narrative: Medical history as mentioned in HPI Medical History Encounter for monitoring leflunomide therapy Long-term use of Plaquenil Symptomatic stenosis of left carotid artery Aortic stenosis Rheumatoid arthritis Carpal tunnel syndrome Former smoker Insulin pump in place Diabetes Elevated cholesterol CAD (coronary artery disease) HTN (hypertension) Surgical History History of left-sided carotid endarterectomy (02/15/23) Hx of carpal tunnel repair Hx of cardiac catheterization History of shoulder surgery History of cholecystectomy History of hand surgery Hx of hemorrhoidectomy Hx of lumbar discectomy H/O colonoscopy Family History Family History Father Heart attack Heart disease Mother Pacemaker Cataracts, bilateral Sister Heart problem Heart valve replaced Arthritis Brother Heart attack Brother Rectal cancer Sister History of modified radical mastectomy of right breast Social History Social History Household Members: None Housing: House Are you a primary companion caregiver to a significant other at home: No Do you presently have visiting nurse or other home services: No Alcohol intake: never Patient Tobacco Use Status: Former Tobacco user Tobacco use type: Cigarette Years Smoked: 5 YEARS Advance Directives: Yes Advance Directives Information Provided: No Advance Directives on File: No Advance Directives Date on File: 02/07/23 Do you have a plan to hurt others: No Plan service: No Current occupational status: employed Current occupation: [employer], rt handed Physical Exam ED Exam Exam: General: Appears encephalopathic Head: Normacephalic, atraumatic ENT: oral mucosa moist, neck supple, no tracheal deviation Cardiovascular: Tachycardic rate, regular rhythm, no murmurs, rubbing, gallops Respiratory: CTAB, no wheeze, rales, rhonchi Gastrointestinal: Soft, non distended, non tender, non guarding Extremities: No limb pain or swelling, no calf tenderness Neurological: Awake and alert, no facial droop noted, moving all 4 extremities Skin: Warm and dry Psychiatric: Appears encephalopathic Vital Signs: Vital Signs - 24 hr 06/04/25 19:19 06/04/25 19:56 06/04/25 20:48 Temperature 101.8 F H 100.8 F H 100.0 F Pulse Rate 104 H 96 114 H Respiratory Rate 20 25 H 20 Blood Pressure 199/109 H 182/80 H 176/96 H Pulse Oximetry 99 99 98 Oxygen Delivery Method Room Air Room Air Room Air 06/04/25 21:19 06/04/25 21:23 06/04/25 22:50 Temperature 99.7 F 99.7 F 98.1 F Pulse Rate 100 96 87 Respiratory Rate 15 18 15 Blood Pressure 202/98 H 189/71 H 135/90 H Pulse Oximetry 95 100 Oxygen Delivery Method Room Air Room Air BMI result Body Mass Index 18.2 Medications Administered Discontinued Medications Generic Name Dose Route Start Last Admin Trade Name Freq PRN Reason Stop Dose Admin Haloperidol Lactate 5 mg 06/04/25 21:09 06/04/25 21:15 Haloperidol Lactate 5 Mg/Ml Vial IM 06/04/25 21:10 5 mg ONCE ONE Administration Acetaminophen 1,000 mg in 100 mls @ 400 mls/hr 06/04/25 19:35 06/04/25 20:06 Ofirmev IV 06/04/25 19:49 Infused ONCE ONE Infusion Lactated Ringer's 1,830 mls @ 1,830 mls/hr 06/04/25 19:35 06/04/25 20:37 Lr 30 ml/kg infuse over 1 hr (1830 ml) 06/04/25 20:34 Infused IV Infusion .Q1H ONE Levofloxacin 750 mg in 150 mls @ 100 mls/hr 06/04/25 19:36 06/04/25 21:19 Levaquin IV 06/04/25 21:05 Infused ONCE ONE Infusion Iohexol 85 ml 06/04/25 22:17 06/04/25 22:17 Iohexol 350 Mg/Ml 100 Ml Infus..Btl IV 06/04/25 22:18 85 ml ONCE ONE Administration Midazolam HCl 4 mg 06/04/25 21:09 06/04/25 21:15 Midazolam Hcl 2 Mg/2 Ml Vial IM 06/04/25 21:10 4 mg ONCE ONE Administration Medical Decision Making Medical Decision Making MDM Narrative: 85-year-old male presented hospital today for evaluation of sepsis. And altered mentation. Patient is febrile. Temperature of 101.8 degrees. Heart rate at 104. Sepsis alert was activated blood culture and CBC CMP will be obtained lactic acid will be obtained as well. Patient will be empirically given IV Levaquin for antibiotic coverage. Noted allergies to penicillin and Zosyn. IV fluid will be given to the patient as well. CT head will be obtained to assess for any of other cause of altered mentation and reason why the patient was found in bed. UA will be obtained as well. We will straight cath the patient. Chest x-ray will be obtained. Lab work shows some leukopenia at 3.4 hemoglobin is appropriate at 12.3. Patient's lactic acid is elevated at 2.6. This is down trending to 1.7 after fluid hydration. Patient's UA did not show any signs of UTI however does show signs of hematuria. Likely from Olguin catheter placement. Patient was noted to be retaining urine on bladder scan. Nursing staff was unable to pass straight cath due to enlarged prostate. A coude Olguin catheter was placed instead. Patient's CT head was negative. CT chest did show thickening of the bronchus and possible consolidation. CT abdomen and pelvis did show possible cystitis. At this time I suspect patient may have sepsis from pneumonia. With the underlying metabolic encephalopathy. Discussed the case with the patient's son and daughter. Patient's youngest son Silverio is his healthcare proxy along with his daughter. Patient will be admitted to the hospital at this time. Differential Diagnosis Differential Diagnoses: The differential diagnosis associated with the presentation includes Sepsis, pneumonia, UTI, dehydration, intracranial bleed Lab Data MDM Lab Attestation statement: I reviewed the patient's lab results. 06/04/25 19:38 06/04/25 19:38 Labs: Lab Results 06/04/25 06/04/25 06/04/25 Range/Units 19:31 19:38 19:46 WBC 3.4 L (4.8-10.8) X10*3/uL RBC 4.47 L (4.60-5.80) X10*6/uL Hgb 12.3 L (14.0-18.0) g/dl Hct 38.1 L (42.0-52.0) % MCV 85.2 (80.0-98.0) fL MCH 27.5 (27.0-33.0) pg MCHC 32.3 (31.0-36.0) g/dl RDW 15.6 (11.0-16.0) % Plt Count 108 L D (160-400) X10*3/uL MPV 9.5 (9.4-12.4) fL Immature Gran % (Auto) 0.3 (0.0-0.4) % Neut % (Auto) 56.1 (45-73) % Lymph % (Auto) 20.9 (20-40) % [place]auf[place] % (Auto) 21.2 H (2-11) % Eos % (Auto) 0.0 (0-4) % Baso % (Auto) 1.5 (0-2) % Lymph # (Auto) 0.7 L (1.2-4.9) X10*3/uL [place] # (Auto) 0.7 (0.1-1.2) X10*3/uL Eos # (Auto) 0.0 (0.0-0.4) X10*3/uL Baso # (Auto) 0.1 (0.0-0.2) X10*3/uL Abs Immat Gran (auto) 0.01 (0.00-0.03) X10*3/uL Absolute Neuts (auto) 1.9 L (2.0-8.3) x10*3/uL Absolute Nucleated RBC 0.000 (0.0-0.012) X10*3/uL Nucleated RBC % (auto) 0.0 (0.0-0.2) /100WBC Smear Tech's Comments VERIFIED VBG pH 7.51 H (7.32-7.43) VBG pCO2 30 mmHg VBG pO2 32 mmHg VBG HCO3 24 (22-26) mmol/L VBG O2 Saturation 44.0 % VBG Base Excess 2.5 mmol/L Sodium 135 (135-145) mmol/L Potassium 3.9 (3.3-5.1) mmol/L Chloride 100 (96-108) mmol/L Carbon Dioxide 24 (22-29) mmol/L Anion Gap 15 (12-20) BUN 13 (9-16) mg/dL Creatinine 0.73 (0.5-1.4) mg/dL Estim Creat Clear Calc 61.5 Estimated GFR > 60 POC Glucose 148 H (60-115) mg/dL Random Glucose 160 H (60-115) mg/dL Lactic Acid 2.6 H* (0.5-2.0) mmol/L Lactic Acid F/U @ 2Hr (0.5-2.0) mmol/L Calcium 8.8 (8.4-10.2) mg/dL Magnesium 1.7 (1.6-2.6) mg/dL Total Bilirubin 1.0 (0.0-1.0) mg/dL AST 36 (5-37) U/L ALT 7 (0-40) U/L Alkaline Phosphatase 100 (39-117) U/L Total Creatine Kinase 146 (38-174) U/L Total Protein 6.2 L (6.5-8.0) g/dL Albumin 3.8 (3.5-5.0) g/dL Beta-Hydroxybutyrate 1.03 H (0.02-0.27) mmol/L TSH 3.51 (0.32-4.0) uIU/mL Urine Color Urine Appearance Urine pH (5.0-9.0) Ur Specific [place] (1.005-1.025) Urine Protein (Neg-Trace) mg/dL Urine Glucose (UA) (Negative) mg/dL Urine Ketones (Negative) mg/dL Urine Blood (Negative) Urine Nitrite (Negative) Ur Leukocyte Esterase (Negative) Urine RBC (0-2) /HPF Urine WBC (0-5) /HPF Ur Squamous Epith Cells (0-2) /HPF Urine Bacteria (None Seen) Hyaline Casts (0-2) /LPF 06/04/25 06/04/25 Range/Units 21:18 21:52 WBC (4.8-10.8) X10*3/uL RBC (4.60-5.80) X10*6/uL Hgb (14.0-18.0) g/dl Hct (42.0-52.0) % MCV (80.0-98.0) fL MCH (27.0-33.0) pg MCHC (31.0-36.0) g/dl RDW (11.0-16.0) % Plt Count (160-400) X10*3/uL MPV (9.4-12.4) fL Immature Gran % (Auto) (0.0-0.4) % Neut % (Auto) (45-73) % Lymph % (Auto) (20-40) % Kaufman % (Auto) (2-11) % Eos % (Auto) (0-4) % Baso % (Auto) (0-2) % Lymph # (Auto) (1.2-4.9) X10*3/uL [place] # (Auto) (0.1-1.2) X10*3/uL Eos # (Auto) (0.0-0.4) X10*3/uL Baso # (Auto) (0.0-0.2) X10*3/uL Abs Immat Gran (auto) (0.00-0.03) X10*3/uL Absolute Neuts (auto) (2.0-8.3) x10*3/uL Absolute Nucleated RBC (0.0-0.012) X10*3/uL Nucleated RBC % (auto) (0.0-0.2) /100WBC Smear Tech's Comments VBG pH (7.32-7.43) VBG pCO2 mmHg VBG pO2 mmHg VBG HCO3 (22-26) mmol/L VBG O2 Saturation % VBG Base Excess mmol/L Sodium (135-145) mmol/L Potassium (3.3-5.1) mmol/L Chloride (96-108) mmol/L Carbon Dioxide (22-29) mmol/L Anion Gap (12-20) BUN (9-16) mg/dL Creatinine (0.5-1.4) mg/dL Estim Creat Clear Calc Estimated GFR POC Glucose (60-115) mg/dL Random Glucose (60-115) mg/dL Lactic Acid (0.5-2.0) mmol/L Lactic Acid F/U @ 2Hr 1.7 (0.5-2.0) mmol/L Calcium (8.4-10.2) mg/dL Magnesium (1.6-2.6) mg/dL Total Bilirubin (0.0-1.0) mg/dL AST (5-37) U/L ALT (0-40) U/L Alkaline Phosphatase (39-117) U/L Total Creatine Kinase (38-174) U/L Total Protein (6.5-8.0) g/dL Albumin (3.5-5.0) g/dL Beta-Hydroxybutyrate (0.02-0.27) mmol/L TSH (0.32-4.0) uIU/mL Urine Color Yellow Urine Appearance Clear Urine pH 7.5 (5.0-9.0) Ur Specific [place] 1.010 (1.005-1.025) Urine Protein Trace (Neg-Trace) mg/dL Urine Glucose (UA) Negative (Negative) mg/dL Urine Ketones 15 (Negative) mg/dL Urine Blood Moderate (2+) H (Negative) Urine Nitrite Negative (Negative) Ur Leukocyte Esterase Negative (Negative) Urine RBC 11-20 H (0-2) /HPF Urine WBC 0-5 (0-5) /HPF Ur Squamous Epith Cells 0-2 (0-2) /HPF Urine Bacteria None Seen (None Seen) Hyaline Casts 0-2 (0-2) /LPF Independent Interpretation I performed an independent interpretation of an: Plain X-Ray and CT Scan Radiology Impression Discussion of test interpretation with radiology: I have reviewed the radiologist's reading. Chronic Conditions Patient?s care impacted by: Diabetes and Hypertension Critical Care Time Critical Care Time Critical Care Time: Yes Total Critical Care Time: 50 Attestation: Time is exclusive of separately billable procedures. Time includes: direct patient care, patient reassessment, coordination of patient care, interpretation of data (laboratory data, pulse oximetry, arterial blood gases and chest xrays), review of patient's medical records, medical consultation and documentation of patient care. Procedures excluded from critical care time: central intravenous line placement and electrocardiography. Discharge Plan Discharge Clinical Impression: Sepsis, Pneumonia, Acute metabolic encephalopathy Patient Disposition: Admitted As Inpatient
--- NOTE | 2025-06-04 19:33 | ECG_ITS ---
Test Reason : SEPSIS Blood Pressure : */* mmHG Vent. Rate : 100 BPM Atrial Rate : 100 BPM P-R Int : 160 ms QRS Dur : 94 ms QT Int : 410 ms P-R-T Axes : 65 -47 -66 degrees QTcB Int : 528 ms Normal sinus rhythm Left anterior fascicular block Minimal voltage criteria for LVH, may be normal variant ( R in aVL ) Septal infarct (cited on or before 05-Jul-2024) Abnormal ECG When compared with ECG of 06-Jan-2025 17:12, Questionable change in initial forces of Septal leads Referred By: Ysabel Zamora Electronically Signed By: Jimmy Grimes
[2025-06-04 19:48] LABS: Venous Blood Gas Refer to POC result
[2025-06-04 19:50] LABS: VBG HCO3 24 mmol/L (22-26); VBG O2 % Saturation 44.0 %
[2025-06-04 19:56] VITALS: BP 182/80; PULSE 96; RESP 25; TEMP 38.2; O2SAT 99
[2025-06-04 20:04] LABS: Glucose, Whole Blood 148 mg/dL (60-115)
[2025-06-04 20:10] LABS: Alanine Aminotransferase 7 U/L (0-40); Albumin Level 3.8 g/dL (3.5-5.0); Alkaline Phosphatase 100 U/L (39-117); Anion Gap 15 (12-20); Aspartate Amino Transferase 36 U/L (5-37); Blood Urea Nitrogen 13 mg/dL (9-16); Calcium 8.8 mg/dL (8.4-10.2); Carbon Dioxide 24 mmol/L (22-29); Chloride 100 mmol/L (96-108); Creatinine Clr Calc Pharmacy 61.5; Estimated Glomerular Filt Rate > 60; Magnesium 1.7 mg/dL (1.6-2.6); Potassium 3.9 mmol/L (3.3-5.1); Sodium 135 mmol/L (135-145); Total Protein 6.2 g/dL (6.5-8.0)
--- NOTE | 2025-06-04 20:19 | PC.NURSE ---
pt biba from home, a&ox1, respirations even but labored. per ems, pt had not spoken to family x2 days, when family found pt he was found in bed confused, and stated he had ran out of insulin x2 days ago. ems placed 18g lac and pt given 250ml NS. pt noted to be febrile and tachycardic. sepsis alert called at 193, MD Zamora at bedside. 18g placed in right ac and pt medicated per aug.
[2025-06-04 20:20] LABS: Hematocrit 38.1 % (42.0-52.0); Hemoglobin 12.3 g/dl (14.0-18.0); Imm Gran Abs Auto 0.01 X10*3/uL (0.00-0.03); Imm Gran Pct Auto 0.3 % (0.0-0.4); Lymphocytes Absolute Auto 0.7 X10*3/uL (1.2-4.9); MANUAL DIFF FLAG SCAN; Mean Corpuscular HGB Conc 32.3 g/dl (31.0-36.0); Mean Corpuscular Hemoglobin 27.5 pg (27.0-33.0); Mean Corpuscular Volume 85.2 fL (80.0-98.0); NRBC Abs Auto 0.000 X10*3/uL (0.0-0.012); NRBC Pct Auto 0.0 /100WBC (0.0-0.2); Platelet Count 108 X10*3/uL (160-400); Red Blood Count 4.47 X10*6/uL (4.60-5.80); SCAN SMEAR FLAG 1; White Blood Count 3.4 X10*3/uL (4.8-10.8)
[2025-06-04 20:48] VITALS: BP 176/96; PULSE 114; RESP 20; TEMP 37.8; O2SAT 98
--- NOTE | 2025-06-04 21:08 | PC.NURSE ---
pt noted to be agitated at this time, confused and attempting to remove tele monitor and both IVs. MD Zamora at bedside with RN. 18F coude ng placed per md order, 300ml yellow urine voided. pt remains stating, help i need to pee and trying to pull out ng and tele.
--- OUTSIDE RECORDS SUMMARY | 2025-06-04 21:15 | XMS_ITS | Clinical Summary ---
Author Organization [facility] Address [address] [place], [place] [id number] Care Team Providers Care Staff Veterinarian Name Role Phone Unknown Primary Care Provider [phone] Encounters Date Type Department Care Team Description 04/28/2025 1:34 PM EST - 04/28/2025 11:59 PM EST Hospital Encounter [address] [phone] Chris Dalal DO Arthritis of right hand Discharge Disposition: Home or Self Care 04/28/2025 1:17 PM EST - 04/28/2025 1:33 PM EST Hospital Encounter [facility] [address] [phone] Chris Dalal, Other specified arthritis, right hand; [...] attachedto the bony plate. us Chris Dalal [facility] DIAGNOSTIC IM[facility]I NG ORDERABLES Final Result * [...] Final Result from Last 3 Months Insurance [facility] [employer] Care Teams Staff Veterinarian Relationship Specialty Start Date End Date Unknown Unknow Provider Address PCP - General 04/18/25
--- OUTSIDE RECORDS SUMMARY | 2025-06-04 21:15 | XMS_ITS | Clinical Summary ---
Author Organization [facility] Address [facility] [place] [address] Care Team Providers Care Copyright Expert Name Role Phone Veronica Salmeron MD Primary Care Provider [phone] Social History Tobacco Use Types Packs/Day Years [...] - Influenza standard series) 02/17/2025 Care Teams Copyright Expert Relationship Specialty Start Date End Date Veronica Salmeron MD [facility] MEDIC[facility] [address] [place] [address] PCP - General 05/11/10
--- OUTSIDE RECORDS SUMMARY | 2025-06-04 21:15 | XMS_ITS | Encounter Summary ---
Author Organization [facility] Address [address] [place] [address] Care Team Providers Care Squaring Machine Operator Name Role Phone Bong Marino Primary Care Provider [phone] [phone] Encounter Details Date Type Department Care Team (Late st Contact Info) Description 07/22/[address] [facility] - Main Lab 299 [facility] [place] [address] Trina Brock MD [address] [address] Occlusion and stenosis of left vertebral artery; Benign prostatic hyperplasia without lower urinary tract symptoms; Atherosclerotic heart disease of [place] coronary artery without angina pectoris; Type 2 diabetes mellitus without complications ([facility] V24, [facility] V28) Social History Tobacco Use [...] 06/23/2025 11:30 AM EST Office Visit [facility] [address] [place] [phone] Emmie Pickens NP [address] [place] [address] Dr [address] [place] [phone] documented as of this encounter Procedures Procedure Name Priority Date/Time Associated Diagnosis Comments COMPLETE BLOOD COUNT Routine 07/23/2024 6:38 AM EST Occlusion and stenosis of left vertebral artery Benign prostatic hyperplasia without lower urinary tract symptoms Atherosclerotic heart disease of [place] coronary artery without angina pectoris Type 2 diabetes mellitus without complications (CMS/HCC) BASIC METABOLIC PANEL Routine 07/23/2024 6:38 AM EST Occlusion and stenosis of left vertebral artery Benign prostatic hyperplasia without lower urinary tract symptoms Atherosclerotic heart disease of [place] coronary artery without angina pectoris Type 2 diabetes mellitus without complications (CMS/HCC) documented in this encounter Results * (ABNORMAL) Basic metabolic panel (07/23/2024 6:38 AM EST) Sodium 142 133 - 145 mmol/L LAB CHEMISTRY METHOD 07/23/2024 9:[address] [facility] Potassium 3.4(L) 3.5 - 5.5 mmol/L LAB CHEMISTRY METHOD 07/23/2024 9:[address] [facility] Chloride 107 96 - 110 mmol/L LAB CHEMISTRY METHOD 07/23/2024 9:[address] [facility] CO2 28 21 - 32 mmol/L LAB CHEMISTRY METHOD 07/23/2024 9:[address] [facility] Anion Gap 7 3 - 11 LAB CHEMISTRY METHOD 07/23/2024 9:[address] [facility] Glucose 126(H) 70 - 100 mg/dL LAB CHEMISTRY METHOD 07/23/2024 9:[address] [facility] BUN 9 5 - 25 mg/dL LAB CHEMISTRY METHOD 07/23/2024 9:[address] [facility] Creatinine 0.67(L) 0.70 - 1.30 mg/dL LAB CHEMISTRY METHOD 07/23/2024 9:46 AM EST [facility] eGFR 91 >=60 mL/min/1. 73m2 LAB CHEMISTRY METHOD 07/23/2024 9:[address] [facility] Comment:Calculation based on the Chronic Kidney Disease Epidemiology Collaboration (CKD-EPI) equation refit without adjustment for race. BUN/Creatinine Ratio 13.4 LAB CHEMISTRY METHOD 07/23/2024 9:[address] [facility] Calcium 8.6 8.5 - 10.5 mg/dL LAB CHEMISTRY METHOD 07/23/2024 9:[address] [facility] Blood Venous blood specimen / Unknown Venipuncture / Unknown 07/23/2024 6:38 AM EST 07/23/2024 8:11 AM EST Trina Brock MD LAB BLOOD ORDERABLES Fin al Result [facility] [address] [place] [address], * (ABNORMAL) Complete blood count (07/23/2024 6:38 AM EST) WBC 2.8(L) 4.8 - 10.8 K/mcL LAB HEMETOLOGY METHOD 07/23/2024 9:[address] [facility] RBC 3.50(L) 4.50 - 5.50 M/mcL LAB HEMETOLOGY METHOD 07/23/2024 9:[address] [facility] Hemoglobin 10.7(L) 13.5 - 17.5 g/dL LAB HEMETOLOGY METHOD 07/23/2024 9:[address] [facility] Hematocrit 33.9(L) 42.0 - 54.0 % LAB HEMETOLOGY METHOD 07/23/2024 9:[address] [facility] MCV 97.7 79.0 - 98.0 FL LAB HEMETOLOGY METHOD 07/23/2024 9:30 AM EST [facility] MCH 30.8 27.0 - 32.0 pcg LAB HEMETOLOGY METHOD 07/23/2024 9:[address] [facility] MCHC 31.6(L) 32.0 - 37.0 g/dL LAB HEMETOLOGY METHOD 07/23/2024 9:30 AM EST [facility] RDW 15.0 11.0 - 15.0 % LAB HEMETOLOGY METHOD 07/23/2024 9:[address] [facility] Platelets 88(L) 130 - 400 K/mcL LAB HEMETOLOGY METHOD 07/23/2024 9:[address] [facility] Comment:previously verified by slide MPV 9.6 7.0 - 11.0 FL LAB HEMETOLOGY METHOD 07/23/2024 9:[address] [facility] NRBC 0.0 <1.0 % LAB HEMETOLOGY METHOD 07/23/2024 9:[address] [facility] NRBC Absolute 0.00 <0.10 K/mcL LAB HEMETOLOGY METHOD 07/23/2024 9:[address] [facility] Blood Venous blood specimen / Unknown Venipuncture / Unknown 07/23/2024 6:38 AM EST 07/23/2024 8:11 AM EST us Trina Brock MD LAB BLOOD ORDERABLES Fin al Result [facility] [address] [place] [address], documented in this encounter Visit Diagnoses Diagnosis Occlusion and stenosis of left vertebral artery Benign prostatic hyperplasia without lower urinary tract symptoms Atherosclerotic heart disease of [place] coronary artery without angina pectoris Type 2 diabetes mellitus without complications (CMS/HCC V24, CMS/HCC V28) documented in this encounter Care Teams Squaring Machine Operator Relationship Specialty Start Date End Date Bong Marino PA [address] [place] [phone] PCP - General Physician Pipe Assembly Worker 11/08/24 documented as of this encounter
--- OUTSIDE RECORDS SUMMARY | 2025-06-04 21:15 | XMS_ITS | Encounter Summary ---
Author Organization [facility] Address [address] [place] [address] Care Team Providers Care Telephonic Rn Name Role Phone Bong Marino Primary Care Provider +1 [phone] Encounter Details Date Type Department Care Team (Late st Contact Info) Description 07/29/2024 Lab Requisition [facility] - Main Lab 299 [facility] [place] [address] Trina Brock MD [address] [address] Type 2 diabetes mellitus without complications (CMS/HCC V24, CMS/HCC V28); Atherosclerotic heart disease of [place] coronary artery without angina pectoris; Benign prostatic [...] Description 06/23/2025 11:30 AM EST Office Visit [facility] - [facility] [address] [place] [phone] Emmie Pickens, PATTI [address] [place] [address] Dr [address] [place] [address] documented as of this encounter Visit Diagnoses Diagnosis Type 2 diabetes mellitus without complications ([facility] V24, [facility] V28) Atherosclerotic heart disease of [place] coronary artery without angina pectoris Benign prostatic hyperplasia without lower urinary tract symptoms Occlusion and stenosis of left vertebral artery documented in this encounter Care Teams Telephonic Rn Relationship Specialty Start Date End Date Bong Marino PA [address] [place] [address] PCP - General Physician Environmental Services Lead 11/08/24 documented as of this encounter
--- OUTSIDE RECORDS SUMMARY | 2025-06-04 21:15 | XMS_ITS | Clinical Summary ---
Author Organization 299 [facility] Address [address] [place] [address] Phone Care Team Providers Care Statistical Modeler Name Role Phone Bong Marino Primary Care Provider +1 [phone] Allergies Active Allergy Reactions Criticality Noted Date [...] we will arrange for a 24 hr project management consultant today. We will assess for any significant [...] 04/09/2025 9:10 AM EDT Office Visit [facility] [address] [place] [address] Emmie Pickens NP Coronary artery disease involving [place] coronary artery of [place] heart without angina pectoris (Primary Dx); Primary hypertension; Mixed hyperlipidemia; History of transcatheter aortic valve replacement (TAVR); Nonrheumatic mitral valve stenosis 03/28/2025 Results Follow-Up [facility] Dr [facility] [address] [place] [address] Emmie Pickens NP 03/27/2025 9:10 AM EDT Office Visit [facility] [address] [place] [address] Emmie Pickens NP Coronary artery disease involving [place] coronary artery of [place] heart without angina pectoris (Primary Dx); Primary hypertension; Mixed hyperlipidemia; History of transcatheter aortic valve replacement (TAVR) 03/17/2025 Telephone Neurosurgery [facility] [address] [facility] [address] [place] [address] Katherin Sargent MD 03/06/2025 6:58 AM EDT - 03/06/2025 11:59 PM EDT Hospital Encounter [facility] Interventional Radiology [address] [place] [address] Spondylosis of lumbosacral region without [...] COMMENT: colonoscopy SPINE SURGERY lumbar fusion with [facility] Medical History Medical History Date Comments Carpal [...] Description 06/23/2025 11:30 AM EST Office Visit [facility] [address] [place] [address] [address] [place] [phone] Emmie Pickens NP [address] [place] [address] Dr [address] [place] [phone] Health Maintenance Due Date Last Done Comments [...] this topic Medical Devices Implanted Type Area Agility Instructor Device Identifier Shelf Expiration Date Model / Serial / Lot Ky[employer] Xpede Bone Cement - [id number] Implanted:Qty: 1 on 03/06/2025 by Yann Velasquez MD at [facility] Bone Cement Right: Sacrum [employer] [id number] 12/16/2026 CX01B / / [id number] Ky[employer] Xpede Bone Cement - [id number] Implanted:Qty: 1 on 03/06/2025 by Yann Velasquez MD at [facility] Bone Cement Left: Sacrum [employer] [id number] 07/19/2027 CX01B / / [id number] Procedures Procedure Name Priority Date/Time Associated Diagnosis Comments CBC WITH AUTO DIFFERENTIAL Routine 03/27/2025 9:48 AM EDT Coronary artery disease involving [place] coronary artery of [place] heart without angina pectoris Primary hypertension CBC AND DIFFERENTIAL Routine 03/27/2025 9:48 AM EDT Coronary artery disease involving [place] coronary artery of [place] heart without angina pectoris Primary hypertension COMPREHENSIVE METABOLIC PANEL Routine 03/27/2025 9:48 AM EDT Coronary artery disease involving [place] coronary artery of [place] heart without angina pectoris Primary hypertension IR [...] 03/27/2025 10:06 PM EDT Performed at: [address] [id number] Fishing Vessel Captain: Leydi Jalloh MD, Phone: [phone] us Emmie Pickens HOST HOSTESS LAB BLOOD ORDERABLES Final R esult [facility] 1 * (ABNORMAL) Comprehensive metabolic panel (03/27/2025 9:48 AM EDT) Pathologist [facility] Glucose 90 70 - 99 mg/dL [facility] [...] AM EDT Performed at: 01 - [facility] [address] [id number] Fishing Vessel Captain: Leydi Jalloh MD, Phone: [phone] Specimen Comment: A courtesy copy of this report has been sent to the patient us Emmie Pickens HOST HOSTESS LAB BLOOD ORDERABLES Final R esult [facility] [...] Signed Date: 03/06/2025 13:07 ET Workstation ID: [id number] Transcribed By: Self Edit Transcribed Date: 03/06/2025 [...] Signed Date: 03/06/2025 13:07 ET Workstation ID: [id number] Transcribed By: Self Edit Transcribed Date: 03/06/2025 [...] stracted Blood Venous blood specimen / Unknown Result [facility] Historical Provider LAB BLOOD ORDERABLES Sarah l Result from Last 3 Months or Most Recently Relevant to Health Maintenance Insurance MEDICARE [facility] Care Teams Statistical Modeler Relationship Specialty Start Date End Date Bong Marino PA [address] [place] [address] PCP - General Physician Resistance Machine Welder Setter 11/08/24
--- OUTSIDE RECORDS SUMMARY | 2025-06-04 21:15 | XMS_ITS | Encounter Summary ---
Author Organization [facility] Address [address] [place] [address] Care Team Providers Care Paleology Teacher Name Role Phone Bong Marino Primary Care Provider [phone] [phone] Encounter Details Date Type Department Care Team (Late st Contact Info) Description 07/18/2024 Lab Requisition [facility] - Main Lab 299 [facility] [place] [address] Trina Brock MD [address] [address] Benign prostatic hyperplasia without lower urinary tract symptoms; Atherosclerotic heart disease of the [place] coronary artery without angina pectoris; Occlusion and stenosis of left vertebral artery; senior living (current) use of anticoagulants; Type 2 diabetes mellitus without complications ([facility]/HCC V24, [facility]/HCC V28) Social History Tobacco Use Types Packs/Day [...] Description 06/23/2025 11:30 AM EST Office Visit [facility] - [facility] [address] [place] [phone] Emmie Pickens NP [address] [place] [address] Dr [address] [place] [phone] documented as of this encounter Procedures Procedure Name Priority Date/Time Associated Diagnosis Comments COMPLETE BLOOD COUNT Routine 07/18/2024 6:05 AM EST Benign prostatic hyperplasia without lower urinary tract symptoms Atherosclerotic heart disease of the [place] 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 Type 2 diabetes mellitus without complications (CMS/HCC) BASIC METABOLIC PANEL Routine 07/18/2024 6:05 AM EST Benign prostatic hyperplasia without lower urinary tract symptoms Atherosclerotic heart disease of [place] 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 senior living (current) use of anticoagulants Type 2 diabetes mellitus without complications (CMS/HCC) documented in this encounter Results * (ABNORMAL) Basic metabolic panel (07/18/2024 6:05 AM EST) Sodium 141 133 - 145 mmol/L LAB CHEMISTRY METHOD 07/18/2024 8:06 AM [facility] Potassium 3.4(L) 3.5 - 5.5 mmol/L LAB CHEMISTRY METHOD 07/18/2024 8:06 AM [facility] Chloride 107 96 - 110 mmol/L LAB CHEMISTRY METHOD 07/18/2024 8:06 AM [facility] CO2 31 21 - 32 mmol/L LAB CHEMISTRY METHOD 07/18/2024 8:06 AM [facility] Anion Gap 3 3 - 11 LAB CHEMISTRY METHOD 07/18/2024 8:06 AM [facility] Glucose 143(H) 70 - 100 mg/dL LAB CHEMISTRY METHOD 07/18/2024 8:06 AM [facility] BUN 8 5 - 25 mg/dL LAB CHEMISTRY METHOD 07/18/2024 8:06 AM [facility] Creatinine 0.66(L) 0.70 - 1.30 mg/dL LAB CHEMISTRY METHOD 07/18/2024 8:06 AM [facility] eGFR 91 >=60 mL/min/1. 73m2 LAB CHEMISTRY METHOD 07/18/2024 8:06 AM [facility] Comment:Calculation based on the Chronic Kidney Disease Epidemiology Collaboration (CKD-EPI) equation refit without adjustment for race. BUN/Creatinine Ratio 12.1 LAB CHEMISTRY METHOD 07/18/2024 8:06 AM [facility] Calcium 8.3(L) 8.5 - 10.5 mg/dL LAB CHEMISTRY METHOD 07/18/2024 8:06 AM [facility] Blood Venous blood specimen / Unknown Venipuncture / Unknown 07/18/2024 6:05 AM EST 07/18/2024 6:37 AM EST us Trina Brock MD LAB BLOOD ORDERABLES Fin al Result [facility] [address] [place] [address], * (ABNORMAL) Complete blood count (07/18/2024 6:05 AM EST) WBC 2.8(L) 4.8 - 10.8 K/mcL LAB HEMETOLOGY METHOD 07/18/2024 8:35 AM [facility] RBC 3.10(L) 4.50 - 5.50 M/mcL LAB HEMETOLOGY METHOD 07/18/2024 8:35 AM [facility] Hemoglobin 9.6(L) 13.5 - 17.5 g/dL LAB HEMETOLOGY METHOD 07/18/2024 8:35 AM [facility] Hematocrit 29.9(L) 42.0 - 54.0 % LAB HEMETOLOGY METHOD 07/18/2024 8:35 AM EST [facility] MCV 96.8 79.0 - 98.0 FL LAB HEMETOLOGY METHOD 07/18/2024 8:35 AM EST [facility] MCH 31.1 27.0 - 32.0 pcg LAB HEMETOLOGY METHOD 07/18/2024 8:35 AM EST [facility] MCHC 32.1 32.0 - 37.0 g/dL LAB HEMETOLOGY METHOD 07/18/2024 8:35 AM EST [facility] RDW 16.1(H) 11.0 - 15.0 % LAB HEMETOLOGY METHOD 07/18/2024 8:35 AM [facility] Platelets 83(L) 130 - 400 K/mcL LAB HEMETOLOGY METHOD 07/18/2024 8:35 AM EST [facility] Comment:previously verified by slide MPV 9.4 7.0 - 11.0 FL LAB HEMETOLOGY METHOD 07/18/2024 8:35 AM EST [facility] NRBC 0.0 <1.0 % LAB HEMETOLOGY METHOD 07/18/2024 8:35 AM [facility] NRBC Absolute 0.00 <0.10 K/mcL LAB HEMETOLOGY METHOD 07/18/2024 8:35 AM [facility] Blood Venous blood specimen / Unknown Venipuncture / Unknown 07/18/2024 6:05 AM EST 07/18/2024 6:37 AM EST us Trina Brock MD LAB BLOOD ORDERABLES Fin al Result [facility] [address] [place] [address], documented in this encounter Visit Diagnoses Diagnosis Benign prostatic hyperplasia without lower urinary tract symptoms Atherosclerotic heart disease of the [place] 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
--- OUTSIDE RECORDS SUMMARY | 2025-06-04 21:15 | XMS_ITS | Encounter Summary ---
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 documented in this encounter Results * (ABNORMAL) CBC auto differential (07/13/2024 7:29 AM EST) WBC 2.2(L) 4.8 - 10.8 K/mcL LAB HEMETOLOGY METHOD 07/13/2024 10:20 AM [facility] RBC 3.20(L) 4.50 - 5.50 M/mcL LAB HEMETOLOGY METHOD 07/13/2024 10:20 AM [facility] Hemoglobin 10.0(L) 13.5 - 17.5 g/dL LAB HEMETOLOGY METHOD 07/13/2024 10:20 AM [facility] Hematocrit 30.1(L) 42.0 - 54.0 % LAB HEMETOLOGY METHOD 07/13/2024 10:20 AM [facility] MCV 93.8 79.0 - 98.0 FL LAB HEMETOLOGY METHOD 07/13/2024 10:20 AM [facility] MCH 31.2 27.0 - 32.0 pcg LAB HEMETOLOGY METHOD 07/13/2024 10:20 AM [facility] MCHC 33.2 32.0 - 37.0 g/dL LAB HEMETOLOGY METHOD 07/13/2024 10:20 AM [facility] RDW 14.6 11.0 - 15.0 % LAB HEMETOLOGY METHOD 07/13/2024 10:20 AM [facility] Platelets 85(L) 130 - 400 K/mcL LAB HEMETOLOGY METHOD 07/13/2024 10:20 AM [facility] Comment:reviewed by slide MPV 8.7 7.0 - 11.0 FL LAB HEMETOLOGY METHOD 07/13/2024 10:20 AM [facility] NRBC 0.0 <1.0 % LAB HEMETOLOGY METHOD 07/13/2024 10:20 AM [facility] NRBC Absolute 0.00 <0.10 K/mcL LAB HEMETOLOGY METHOD 07/13/2024 10:20 AM [facility] Neutrophils Relative 43.6 % LAB HEMETOLOGY METHOD 07/13/2024 10:20 AM [facility] Lymphocytes Relative 28.9 % LAB HEMETOLOGY METHOD 07/13/2024 10:20 AM [facility] Monocytes Relative 23.9 % LAB HEMETOLOGY METHOD 07/13/2024 10:20 AM [facility] Eosinophils Relative 1.8 % LAB HEMETOLOGY METHOD 07/13/2024 10:20 AM [facility] Basophils Relative 1.8 % LAB HEMETOLOGY METHOD 07/13/2024 10:20 AM [facility] Immature Granulocytes Relative 0.0 % LAB HEMETOLOGY METHOD 07/13/2024 10:20 AM [facility] Neutrophils Absolute 0.95(L) 1.50 - 7.00 K/mcL LAB HEMETOLOGY METHOD 07/13/2024 10:20 AM [facility] Lymphocytes Absolute 0.63(L) 1.00 - 5.00 K/mcL LAB HEMETOLOGY METHOD 07/13/2024 10:20 AM [facility] Monocytes Absolute 0.52 0.20 - 1.00 K/mcL LAB HEMETOLOGY METHOD 07/13/2024 10:20 AM EST [facility] Eosinophils Absolute 0.04 0.00 - 0.50 K/[facility] LAB HEMETOLOGY METHOD 07/13/2024 10:20 AM EST [facility] Basophils Absolute 0.04 0.00 - 0.20 K/mcL LAB HEMETOLOGY METHOD 07/13/2024 10:20 AM EST [facility] Immature Granulocytes Absolute 0.00 0.00 - 0.03 K/[facility] LAB HEMETOLOGY METHOD 07/13/2024 10:20 AM [facility] Blood Venous blood specimen / Unknown Venipuncture / Unknown 07/13/2024 7:29 AM EST 07/13/2024 9:03 AM EST Trina Brock MD LAB BLOOD ORDERABLES Fin al Result [facility] [address] [place] [address], * (ABNORMAL) Basic metabolic panel (07/13/2024 7:29 AM EST) Sodium 145 133 - 145 mmol/L LAB CHEMISTRY METHOD 07/13/2024 9:54 AM [facility] Potassium 3.0(L) 3.5 - 5.5 mmol/L LAB CHEMISTRY METHOD 07/13/2024 9:54 AM [facility] Chloride 114(H) 96 - 110 mmol/L LAB CHEMISTRY METHOD 07/13/2024 9:54 AM [facility] CO2 25 21 - 32 mmol/L LAB CHEMISTRY METHOD 07/13/2024 9:54 AM [facility] Anion Gap 6 3 - 11 LAB CHEMISTRY METHOD 07/13/2024 9:54 AM [facility] Glucose 151(H) 70 - 100 mg/dL LAB CHEMISTRY METHOD 07/13/2024 9:54 AM EST [facility] BUN 5 5 - 25 mg/dL LAB CHEMISTRY METHOD 07/13/2024 9:54 AM [facility] Creatinine 0.49(L) 0.70 - 1.30 mg/dL LAB CHEMISTRY METHOD 07/13/2024 9:54 AM [facility] eGFR 100 >=60 mL/min/1. 73m2 LAB CHEMISTRY METHOD 07/13/2024 9:54 AM [facility] Comment:Calculation based on the Chronic Kidney Disease Epidemiology Collaboration (CKD-EPI) equation refit without adjustment for race. 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
[2025-06-04 21:19] VITALS: BP 202/98; PULSE 100; RESP 15; TEMP 37.6; O2SAT 95
[2025-06-04 21:23] VITALS: BP 189/71; PULSE 96; RESP 18; TEMP 37.6
[2025-06-04 21:24] LABS: Appearance Urine Clear; Glucose Urine UA Negative (Negative); PH 7.5 (5.0-9.0); Specific Gravity - Urine 1.010 (1.005-1.025); UMIC TRIGGER UA YES
--- NOTE | 2025-06-04 21:26 | PC.NURSE ---
pt medicated per mar at this time. family members at bedside. vss
[2025-06-04 21:44] LABS: Reflex Lactate? Lactic Acid Added
--- NOTE | 2025-06-04 21:47 | PC.NURSE ---
pt son at bedside reports he took home pt gold chain at this time
--- NOTE | 2025-06-04 21:55 | PC.NURSE ---
camera placed at bedside for pt safety.
[2025-06-04 22:17] LABS: ~Lactic Acid-LAB USE ONLY 1.7 mmol/L (0.5-2.0)
[2025-06-04] MEDS: iohexoL 350 MG/ML 100 ML INFUS..BTL 85 ML IV (22:17)
[2025-06-04 22:50] VITALS: BP 135/90; PULSE 87; RESP 15; TEMP 36.7; O2SAT 100
[2025-06-05] VITALS (14 sets, daily range): BP systolic 142–194; BP diastolic 74–113; PULSE 86–125; RESP 18–20; TEMP 36.3–39; O2SAT 93–98; BMI 17.1
--- NOTE | 2025-06-05 | ECG_ITS ---
Test Reason : prolongue qtc Blood Pressure : */* mmHG Vent. Rate : 110 BPM Atrial Rate : 110 BPM P-R Int : 176 ms QRS Dur : 98 ms QT Int : 356 ms P-R-T Axes : 57 -46 97 degrees QTcB Int : 481 ms Sinus tachycardia Left anterior fascicular block Left ventricular hypertrophy with repolarization abnormality ( R in aVL ) Cannot rule out Septal infarct (cited on or before 05-Jul-2024) Abnormal ECG When compared with ECG of 04-Jun-2025 19:48, Questionable change in initial forces of Septal leads Nonspecific T wave abnormality no longer evident in Inferior leads Referred By: Leora Hooper Electronically Signed By: Jimmy Grimes
[2025-06-05 01:22] LABS: Delay - Chemistry DELAY
--- NOTE | 2025-06-05 01:23 | PM.IMHP ---
History of Present Illness Date of Service: 06/05/25 Chief Complaint: Acute metabolic encephalopathy An 85-year-old male with a history of diabetes on insulin pump, thrombocytopenia, coronary artery disease, aortic stenosis, hypertension, rheumatoid arthritis (on immunosuppressants), and prior left carotid endarterectomy was found by family after two days with altered mental status. He was febrile (Tmax 101.8?F), hypertensive, and tachycardic on arrival. History is limited due to encephalopathy. In the ED he was noted to be retaining urine thereby a catheter was inserted (Olguin catheter placement (after failed straight cath due to enlarged prostate)). Diagnostic studies Laboratory:Leukopenia (WBC 3.4), anemia (Hgb 12.3), and significant thrombocytopenia (Plt 108). Mildly low RBC and Hct.. Renal function and electrolytes within normal limits. Lactic Acid: Elevated at 2.6 mmol/L, improved to 1.7 after IV fluids. Urinalysis: Trace protein, moderate blood, 11?20 RBC/HPF, no significant WBCs or bacteria. Beta-hydroxybutyrate elevated (1.03). Imaging: CT head negative for acute pathology. CT chest showed bronchial thickening and possible consolidation. CT abdomen/pelvis showed possible cystitis. ED TX: IV levofloxacin, IV acetaminophen, IV fluids (Lactated Ringer?s, 30 ml/kg) IM haloperidol and IM midazolam (for agitation/encephalopathy) [facility] Medical History Encounter for monitoring leflunomide therapy Long-term use of Plaquenil Symptomatic stenosis of left carotid artery Aortic stenosis Rheumatoid arthritis Carpal tunnel syndrome Former smoker Insulin pump in place Diabetes Elevated cholesterol CAD (coronary artery disease) HTN (hypertension) Family History Father Heart attack Heart disease Mother Pacemaker Cataracts, bilateral Sister Heart problem Heart valve replaced Arthritis Brother Heart attack Brother Rectal cancer Sister History of modified radical mastectomy of right breast Surgical History History of left-sided carotid endarterectomy (02/15/23) Hx of carpal tunnel repair Hx of cardiac catheterization History of shoulder surgery History of cholecystectomy History of hand surgery Hx of hemorrhoidectomy Hx of lumbar discectomy H/O colonoscopy Social History Household Members: None Housing: House Are you a primary clinical manager home care to a significant other at home: No Do you presently have visiting nurse or other home services: No Alcohol intake: never Patient Tobacco Use Status: Former Tobacco user Tobacco use type: Cigarette Years Smoked: 5 YEARS Advance Directives: Yes Advance Directives Information Provided: No Advance Directives on File: No Advance Directives Date on File: 02/07/23 Do you have a plan to hurt others: No Plan Nutrition Risks: No Nutritional Risk service: No Current occupational status: employed Current occupation: [employer], rt handed Meds Allergies Allergy/AdvReac Type Severity Reaction Status Date / Time Penicillins Allergy Severe ITCHING-SEV Verified 06/04/25 19:28 ERE piperacillin (From Zosyn) Allergy Mild JAUNDICE Verified 06/04/25 19:28 tazobactam (From Zosyn) Allergy Mild JAUNDICE Verified 06/04/25 19:28 Home Medications ?Medication ?Instructions ?Recorded ?Confirmed ?Last Taken ?Type Novolog U-100 Insulin aspart 0 units subcut (via wearable 06/01/20 07/31/24 02/14/23 History injectr) DAILY tamsulosin 0.4 mg capsule 0.4 mg PO BEDTIME 06/24/22 07/31/24 02/14/23 History vitamins A,C,T-[id number] 4,296 1 cap PO BID 06/24/22 07/31/24 02/14/23 History mcg-226 mg-90 mg capsule (PreserVision AREDS) acetaminophen 650 mg 650 mg PO Q8H PRN Pain 09/06/22 01/30/25 02/14/23 History tablet,extended release (Tylenol 8 Hour) cyclobenzaprine 10 mg tablet 10 mg PO DAILY 09/06/22 01/30/25 02/14/23 History cholecalciferol (vitamin D3) 50 50 mcg PO BID 11/21/22 01/30/25 02/14/23 History mcg (2,000 unit) capsule calcium citrate 1,600 mg PO BID 12/24/22 01/30/25 02/14/23 History furosemide 20 mg tablet mg PO 08/22/23 07/31/24 Unknown History atorvastatin 10 mg tablet (Lipitor) 10 mg PO DAILY 07/29/24 01/30/25 Unknown History buprenorphine 20 mcg/hour weekly 1 patch transdermal QWEEK 03/11/25 Unknown History transdermal patch Physical Exam Vital Signs and Narrative: Vital Signs: Last Vital Signs Temp 98.1 F 06/04/25 22:50 Pulse 87 06/04/25 22:50 Resp 15 06/04/25 22:50 BP 135/90 H 06/04/25 22:50 Pulse Ox 100 06/04/25 22:50 O2 Del Method Room Air 06/04/25 22:50 BMI result Body Mass Index 18.2 General: no acute distress HEENT: Head normocephalic, atraumatic. PER, EOMI. Sclerae anicteric, conjunctiva clear. Oropharynx without erythema or exudate. Mucous membranes dry Neck: Supple Heart: RRR, no murmurs Lungs: CTABL. No wheezes, rales, or rhonchi. Normal respiratory effort. Abdomen: Soft, non tenderness, nondistended, normoactive bowel sounds. Musculoskeletal: Moved all extremities spontaneously Neurologic: completed one step instructions 4AT Delirium and Cognitive evaluation [1] ALERTNESS: 0 [2] AMT4: oriented to age only (2) [3] ATTENTION: [Months of the year backwards]: 2 [4] ACUTE CHANGE OR FLUCTUATING COURSE: 4 Total score: 8 /12 The 4AT is scored from 0-12 0 suggests no delirium and no moderate-severe cognitive impairment 1-3 suggests cognitive impairment but not delirium 4 or more suggests delirium Results Labs 06/05/25 04:13 06/05/25 04:13 Labs: Laboratory Results - last 24 hr 06/04/25 06/04/25 06/04/25 19:31 19:38 19:46 MCV 85.2 MCH 27.5 MCHC 32.3 RDW 15.6 Plt Count 108 L D MPV 9.5 Immature Gran % (Auto) 0.3 Neut % (Auto) 56.1 Lymph % (Auto) 20.9 [place] % (Auto) 21.2 H Eos % (Auto) 0.0 Baso % (Auto) 1.5 Lymph # (Auto) 0.7 L [place] # (Auto) 0.7 Eos # (Auto) 0.0 Baso # (Auto) 0.1 Abs Immat Gran (auto) 0.01 Absolute Neuts (auto) 1.9 L Absolute Nucleated RBC 0.000 Nucleated RBC % (auto) 0.0 Smear Tech's Comments VERIFIED VBG pH 7.51 H VBG pCO2 30 VBG pO2 32 VBG HCO3 24 VBG O2 Saturation 44.0 VBG Base Excess 2.5 Anion Gap 15 Estim Creat Clear Calc 61.5 Estimated GFR > 60 POC Glucose 148 H Random Glucose 160 H Lactic Acid 2.6 H* Lactic Acid F/U @ 2Hr Calcium 8.8 Magnesium 1.7 Total Bilirubin 1.0 AST 36 ALT 7 Alkaline Phosphatase 100 Total Creatine Kinase 146 Total Protein 6.2 L Albumin 3.8 Beta-Hydroxybutyrate 1.03 H TSH 3.51 Specimen Comment DELAY Urine Color Urine Appearance Urine pH Ur Specific [place] Urine Protein Urine Glucose (UA) Urine Ketones Urine Blood Urine Nitrite Ur Leukocyte Esterase Urine RBC Urine WBC Ur Squamous Epith Cells Urine Bacteria Hyaline Casts 06/04/25 06/04/25 21:18 21:52 MCV MCH MCHC RDW Plt Count MPV Immature Gran % (Auto) Neut % (Auto) Lymph % (Auto) [place] % (Auto) Eos % (Auto) Baso % (Auto) Lymph # (Auto) [place] # (Auto) Eos # (Auto) Baso # (Auto) Abs Immat Gran (auto) Absolute Neuts (auto) Absolute Nucleated RBC Nucleated RBC % (auto) Smear Tech's Comments VBG pH VBG pCO2 VBG pO2 VBG HCO3 VBG O2 Saturation VBG Base Excess Anion Gap Estim Creat Clear Calc Estimated GFR POC Glucose Random Glucose Lactic Acid Lactic Acid F/U @ 2Hr 1.7 Calcium Magnesium Total Bilirubin AST ALT Alkaline Phosphatase Total Creatine Kinase Total Protein Albumin Beta-Hydroxybutyrate TSH Specimen Comment Urine Color Yellow Urine Appearance Clear Urine pH 7.5 Ur Specific [place] 1.010 Urine Protein Trace Urine Glucose (UA) Negative Urine Ketones 15 Urine Blood Moderate (2+) H Urine Nitrite Negative Ur Leukocyte Esterase Negative Urine RBC 11-20 H Urine WBC 0-5 Ur Squamous Epith Cells 0-2 Urine Bacteria None Seen Hyaline Casts 0-2 Assessment and Plan (1) Acute metabolic encephalopathy: Status: Acute Plan 85-year-old male with multiple comorbidities presenting with acute altered mental status, fever, and sepsis. Labs show leukopenia, thrombocytopenia, anemia, and elevated lactic acid. Imaging suggests possible pneumonia and cystitis. Urinalysis is not consistent with UTI but shows hematuria, likely related to catheterization. Sepsis possible due to Pneumonia and cystitis Plan Continue IV levofloxacin Blood and urine cultures pending Antipyretics as needed. Maintain Olguin catheter for urinary retention Monitor CBC IVF Aspiration precaution Acute metabolic encephalopathy with acute delirium and psychmotor restlessness likely due to sepsis Continue supportive care IDDM (insluin pump) Correctional insulin Blood glucose monitoring Medication reconciliation pending. The patient require 2 midnight hospitalization for IV antibiotics for the management of sepsis. Quality Stroke Does the patient have a stroke diagnosis?: No VTE Prior VTE?: No VTE Risk Level:: Medical - moderate - high VTE Device Contraindication: Treatment Not Indicated VTE Drug Contraindication: N/A - Med Ordered
[2025-06-05 02:08] LABS: NT Pro B Type Natriuretic Pept 1895.7 pg/mL (<300)
--- NOTE | 2025-06-05 02:23 | PC.NURSE ---
pt increasingly restless, stating i have to pee and attempting to remove ng. pt placed in hospital bed. MD Notified. pt bladder scan for <5 . awaiting md orders.
[2025-06-05 02:59] LABS: Glucose, Whole Blood 133 mg/dL (60-115)
--- NOTE | 2025-06-05 03:01 | PC.NURSE ---
pt medicated per aug, tolerated whole well with water,
[2025-06-05 04:39] LABS: Hematocrit 34.3 % (42.0-52.0); Hemoglobin 10.9 g/dl (14.0-18.0); Mean Corpuscular HGB Conc 31.8 g/dl (31.0-36.0); Mean Corpuscular Hemoglobin 27.7 pg (27.0-33.0); Mean Corpuscular Volume 87.1 fL (80.0-98.0); NRBC Abs Auto 0.000 X10*3/uL (0.0-0.012); NRBC Pct Auto 0.0 /100WBC (0.0-0.2); Red Blood Count 3.94 X10*6/uL (4.60-5.80); White Blood Count 4.2 X10*3/uL (4.8-10.8)
[2025-06-05 04:40] LABS: Platelet Count 91 X10*3/uL (160-400)
--- NOTE | 2025-06-05 04:46 | PC.NURSE ---
pt remains restless and attempting to get out of bed, pt redirected multiple times with failed attempts. MD notified, awaiting orders. sitter placed
[2025-06-05 05:00] LABS: Anion Gap 17 (12-20); Blood Urea Nitrogen 12 mg/dL (9-16); Calcium 8.2 mg/dL (8.4-10.2); Carbon Dioxide 21 mmol/L (22-29); Chloride 100 mmol/L (96-108); Creatinine Clr Calc Pharmacy 74.8; Estimated Glomerular Filt Rate > 60; Potassium 3.5 mmol/L (3.3-5.1); Sodium 134 mmol/L (135-145)
[2025-06-05] MEDS: diazePAM 10 MG/2 ML CARTRIDGE 2.5 MG IVPUSH (05:08)
--- NOTE | 2025-06-05 05:17 | PC.NURSE ---
pt medicated per mar and appears sleeping, respirations even and unlabored. MD notified of pt elevated BP, no new orders at this time.
--- NOTE | 2025-06-05 06:26 | PC.NURSE ---
pt ng emptied at this time, pt noted to be shivering. pt rectal temp obtained of 102.0. rectal probe placed. MD nguyen and pt medicated per mar with tylenol
[2025-06-05 07:26] LABS: Glucose, Whole Blood 138 mg/dL (60-115)
[2025-06-05] MEDS: 0.9 % Sodium Chloride Flush 3 ML SYRINGE IVFLUSH (07:54)
[2025-06-05] MEDS: Lactated Ringers 1,000 ML 80 ML IVCONT (07:56)
[2025-06-05] MEDS: metroNIDAZOLE/NS 500 MG/100 ML PIGGYBACK 100 MG IV ×2 (08:40→22:00)
--- NOTE | 2025-06-05 08:43 | PC.NURSE ---
Dr Pool and PT at bedside. Plan for abd u/s to further assess CBD stone. LR to be d/c'd and abx change to Flagyl (infusing now). SARS/FLU/COVID swab obtained/sent. Spoke with daughter Susie and updated. Pt is alert but confused. Able to state name and name of daughter but restless and asking to void despite reminding pt of catheter. Temp remains elevated, per Dr Pool, Tylenol to be given at allotted time (from last admin) ST on tele. BP stable. 1:1 pt observer for safety
[2025-06-05 09:25] LABS: Resp Syncy Virus RNA Qual PCR NEGATIVE (Negative); SARS COV2 PCR INHOUSE POSITIVE (Negative)
--- NOTE | 2025-06-05 12:03 | HO.PM.IMPN ---
Subjective Subjective Date of Service: 06/05/25 Interval History: feeling ill Physical Exam Exam: Exam: Lethargic, disoriented, minimally participatory, lungs clear, abdomen soft Vital Signs: Vital Signs: Last Vital Signs Temp 100.8 F H 06/05/25 11:02 Pulse 98 06/05/25 11:02 Resp 20 06/05/25 11:02 BP 146/96 H 06/05/25 11:02 Pulse Ox 96 06/05/25 11:02 O2 Del Method Room Air 06/05/25 11:02 BMI result Body Mass Index 18.2 Objective Data Active Medications Acetaminophen (Acetaminophen 325 Mg Tablet) 650 mg PO Q6H PRN PRN Reason: Pain, Mild 1-3,fever,headache Last Admin: 06/05/25 06:24 Dose: 650 mg Documented By: GLENIS Calcium Carbonate (Calcium Carbonate 750 Mg Tab.Chew) 750 mg PO Q4H PRN PRN Reason: Heartburn Dextrose (Dextrose 50 % 25 Gm/50 Ml Syringe) 25 gm IVPUSH Q15M PRN; Protocol PRN Reason: per Hypoglycemia Standing Ord. Enoxaparin Sodium (Enoxaparin Sodium 40 Mg/0.4 Ml Syringe) 40 mg SUBCUT Q24H CLAY Last Admin: 06/05/25 02:52 Dose: 40 mg Documented By: GLENIS Glucose (Glucose Gel 15 Gm Gel..Gram.) 15 gm PO Q15M PRN; Protocol PRN Reason: per Hypoglycemia Standing Ord. Ceftriaxone Sodium 1 gm/ (Sodium Chloride) 50 mls @ 100 mls/hr IV Q24H CLAY Metronidazole (Flagyl) 500 mg in 100 mls @ 100 mls/hr IV Q12H [facility] Last Infusion: 06/05/25 09:41 Dose: Infused Documented By: LINDSEY Insulin Human Lispro (Insulin Lispro 100 Unit/Ml 3 Ml Vial) 0 unit SUBCUT QIDACHS [facility]; Protocol Last Admin: 06/05/25 07:29 Dose: Not Given Documented By: LINDSEY Non-Admin Reason: No Insulin Coverage Magnesium Hydroxide (Milk Of Magnesia 30 Ml Oral.Susp) 30 ml PO DAILY PRN PRN Reason: Constipation Melatonin (Melatonin 3 Mg Tablet) 3 mg PO BEDTIME PRN PRN Reason: Insomnia Ondansetron HCl (Ondansetron Hcl 4 Mg/2 Ml Vial) 4 mg IVPUSH Q8H PRN PRN Reason: Nausea and Vomiting Oseltamivir Phosphate (Oseltamivir Phosphate 75 Mg Capsule) 75 mg PO Q12H [facility] Stop: 06/09/25 22:01 Last Admin: 06/05/25 10:15 Dose: 75 mg Documented By: LINDSEY Polyethylene Glycol (Polyethylene Glycol 3350 17 Gm Powd.Pack) 17 gm PO DAILY PRN PRN Reason: Constipation Sodium Chloride (0.9 % Sodium Chloride Flush 3 Ml Syringe) 3 ml IVFLUSH QSHIFT [facility] Last Admin: 06/05/25 07:54 Dose: 3 ml Documented By: LINDSEY Labs 06/05/25 04:13 06/05/25 04:13 Labs: Laboratory Results - last 24 hr 06/04/25 06/04/25 06/04/25 19:31 19:38 19:46 MCV 85.2 MCH 27.5 MCHC 32.3 RDW 15.6 Plt Count 108 L D MPV 9.5 Immature Gran % (Auto) 0.3 Neut % (Auto) 56.1 Lymph % (Auto) 20.9 [place] % (Auto) 21.2 H Eos % (Auto) 0.0 Baso % (Auto) 1.5 Lymph # (Auto) 0.7 L [place] # (Auto) 0.7 Eos # (Auto) 0.0 Baso # (Auto) 0.1 Abs Immat Gran (auto) 0.01 Absolute Neuts (auto) 1.9 L Absolute Nucleated RBC 0.000 Nucleated RBC % (auto) 0.0 Smear Tech's Comments VERIFIED VBG pH 7.51 H VBG pCO2 30 VBG pO2 32 VBG HCO3 24 VBG O2 Saturation 44.0 VBG Base Excess 2.5 Anion Gap 15 Estim Creat Clear Calc 61.5 Estimated GFR > 60 POC Glucose 148 H Random Glucose 160 H Lactic Acid 2.6 H* Lactic Acid F/U @ 2Hr Calcium 8.8 Magnesium 1.7 Total Bilirubin 1.0 AST 36 ALT 7 Alkaline Phosphatase 100 Total Creatine Kinase 146 NT-Pro-B Natriuret Pep 1895.7 H Total Protein 6.2 L Albumin 3.8 Beta-Hydroxybutyrate 1.03 H TSH 3.51 Specimen Comment DELAY Urine Color Urine Appearance Urine pH Ur Specific [place] Urine Protein Urine Glucose (UA) Urine Ketones Urine Blood Urine Nitrite Ur Leukocyte Esterase Urine RBC Urine WBC Ur Squamous Epith Cells Urine Bacteria Hyaline Casts Influenza Type A (PCR) Influenza Type B (PCR) RSV RNA Qual (PCR) SARS-CoV-2 RNA (RT-PCR) 06/04/25 06/04/25 06/05/25 21:18 21:52 02:55 MCV MCH MCHC RDW Plt Count MPV Immature Gran % (Auto) Neut % (Auto) Lymph % (Auto) [place] % (Auto) Eos % (Auto) Baso % (Auto) Lymph # (Auto) [place] # (Auto) Eos # (Auto) Baso # (Auto) Abs Immat Gran (auto) Absolute Neuts (auto) Absolute Nucleated RBC Nucleated RBC % (auto) Smear Tech's Comments VBG pH VBG pCO2 VBG pO2 VBG HCO3 VBG O2 Saturation VBG Base Excess Anion Gap Estim Creat Clear Calc Estimated GFR POC Glucose 133 H Random Glucose Lactic Acid Lactic Acid F/U @ 2Hr 1.7 Calcium Magnesium Total Bilirubin AST ALT Alkaline Phosphatase Total Creatine Kinase NT-Pro-B Natriuret Pep Total Protein Albumin Beta-Hydroxybutyrate TSH Specimen Comment Urine Color Yellow Urine Appearance Clear Urine pH 7.5 Ur Specific [place] 1.010 Urine Protein Trace Urine Glucose (UA) Negative Urine Ketones 15 Urine Blood Moderate (2+) H Urine Nitrite Negative Ur Leukocyte Esterase Negative Urine RBC 11-20 H Urine WBC 0-5 Ur Squamous Epith Cells 0-2 Urine Bacteria None Seen Hyaline Casts 0-2 Influenza Type A (PCR) Influenza Type B (PCR) RSV RNA Qual (PCR) SARS-CoV-2 RNA (RT-PCR) 06/05/25 06/05/25 06/05/25 04:13 07:22 08:33 MCV 87.1 MCH 27.7 MCHC 31.8 RDW 15.6 Plt Count 91 L MPV 9.9 Immature Gran % (Auto) Neut % (Auto) Lymph % (Auto) [place] % (Auto) Eos % (Auto) Baso % (Auto) Lymph # (Auto) [place] # (Auto) Eos # (Auto) Baso # (Auto) Abs Immat Gran (auto) Absolute Neuts (auto) Absolute Nucleated RBC 0.000 Nucleated RBC % (auto) 0.0 Smear Tech's Comments VBG pH VBG pCO2 VBG pO2 VBG HCO3 VBG O2 Saturation VBG Base Excess Anion Gap 17 Estim Creat Clear Calc 74.8 Estimated GFR > 60 POC Glucose 138 H Random Glucose 155 H Lactic Acid Lactic Acid F/U @ 2Hr Calcium 8.2 L D Magnesium Total Bilirubin AST ALT Alkaline Phosphatase Total Creatine Kinase NT-Pro-B Natriuret Pep Total Protein Albumin Beta-Hydroxybutyrate TSH Specimen Comment Urine Color Urine Appearance Urine pH Ur Specific [place] Urine Protein Urine Glucose (UA) Urine Ketones Urine Blood Urine Nitrite Ur Leukocyte Esterase Urine RBC Urine WBC Ur Squamous Epith Cells Urine Bacteria Hyaline Casts Influenza Type A (PCR) POSITIVE A Influenza Type B (PCR) NEGATIVE RSV RNA Qual (PCR) NEGATIVE SARS-CoV-2 RNA (RT-PCR) POSITIVE A Assessment and Plan (1) CAD (coronary artery disease): Status: Acute Plan 85M PMH DM, CAD, moderate aortic stenosis, hypertension, rheumatoid arthritis, peripheral vascular disease status post left carotid endarterectomy presented with altered mental status and fever sepsis and acute metabolic encephalopathy due to COVID and flu, possible pneumonia Tamiflu, follow up cultures Continue ceftriaxone, Flagyl ? Dilated CBD Normal LFTs, doubt obstruction Diabetes Insulin sliding scale DVT prophylaxis with Lovenox Full code reason for continued hospitalization: Febrile Quality Stroke Does the patient have a stroke diagnosis?: No VTE Prior VTE?: No VTE Risk Level:: Medical - moderate - high VTE Device Contraindication: Treatment Not Indicated VTE Drug Contraindication: N/A - Med Ordered
[2025-06-05 12:11] LABS: Glucose, Whole Blood 141 mg/dL (60-115)
[2025-06-05 17:15] LABS: Glucose, Whole Blood 159 mg/dL (60-115)
[2025-06-05] MEDS: Lidocaine 4 % Patch ADH..PATCH 1 PATCH TRANSDERMA (17:48)
--- NOTE | 2025-06-05 18:24 | PHA.MEDREC ---
Addendum entered by Caitlin Pruitt RPh 06/05/25 19:37: reviewed by [facility], removed pilocarpine as patient last filled that in 06/2024 and it only had one refill on it. [facility]. Original Note: Pharmacy Consult ? Medication Reconciliation Pharmacy has completed the medication reconciliation. Received med list from [place] and spoke with pt sons over the phone about some of the medications and they were not very helpful historians with the pt medications. Spoke with pt and he was very confused but able to confirm some of his medications; pt able to confirm he is using Novolog insulin injected into his insulin device, he confirmed his Prolia injection but doesn't remember the last time he had received that or when he is due for that and he is using Buprenorphine patches and changes them once a week on ; pt confirmed he is due for one today and pt states he was taking Leflunomide once daily but stopped that recently due to not liking it anymore.
[2025-06-05 20:24] LABS: Glucose, Whole Blood 148 mg/dL (60-115)
[2025-06-06] VITALS: BP 181/86; PULSE 93; RESP 18; TEMP 36.3; O2SAT 95
[2025-06-06 03:48] VITALS: BP 176/90; PULSE 88; RESP 16; TEMP 36.6; O2SAT 97
--- NOTE | 2025-06-06 04:05 | PC.NURSE ---
MD aware of high BP. pt asymptmatic, calm, omfortable, states needs are met at this time, no further orders
[2025-06-06 07:44] LABS: Hematocrit 35.0 % (42.0-52.0); Hemoglobin 11.4 g/dl (14.0-18.0); Mean Corpuscular HGB Conc 32.6 g/dl (31.0-36.0); Mean Corpuscular Hemoglobin 27.5 pg (27.0-33.0); Mean Corpuscular Volume 84.3 fL (80.0-98.0); NRBC Abs Auto 0.000 X10*3/uL (0.0-0.012); NRBC Pct Auto 0.0 /100WBC (0.0-0.2); Red Blood Count 4.15 X10*6/uL (4.60-5.80)
[2025-06-06 07:48] LABS: Platelet Count 85 X10*3/uL (160-400); White Blood Count 2.4 X10*3/uL (4.8-10.8)
[2025-06-06 07:57] LABS: Anion Gap 15 (12-20); Blood Urea Nitrogen 12 mg/dL (9-16); Calcium 8.1 mg/dL (8.4-10.2); Carbon Dioxide 22 mmol/L (22-29); Chloride 102 mmol/L (96-108); Creatinine Clr Calc Pharmacy 66.8; Estimated Glomerular Filt Rate > 60; Magnesium 2.0 mg/dL (1.6-2.6); Potassium 3.0 mmol/L (3.3-5.1); Sodium 136 mmol/L (135-145)
[2025-06-06 08:00] VITALS: BP 155/80; PULSE 87; RESP 18; TEMP 36.8; O2SAT 95
[2025-06-06 08:06] LABS: Glucose, Whole Blood 125 mg/dL (60-115)
[2025-06-06] MEDS: metroNIDAZOLE/NS 500 MG/100 ML PIGGYBACK 100 MG IV ×2 (09:38→19:48)
[2025-06-06] MEDS: Lidocaine 4 % Patch ADH..PATCH 1 PATCH TRANSDERMA (09:38)
[2025-06-06] MEDS: Potassium Chloride ER 20 MEQ TAB.ER.PRT 40 MEQ PO (09:39)
[2025-06-06] MEDS: Aspirin Enteric Coated 81 MG TABLET.DR PO (09:39)
[2025-06-06] MEDS: 0.9 % Sodium Chloride Flush 3 ML SYRINGE IVFLUSH ×3 (09:39→19:55)
[2025-06-06] MEDS: Metoprolol Succinate ER 12.5 MG HALFTAB.ER.24H PO (09:39)
--- NOTE | 2025-06-06 09:52 | P.PNIM_ITS ---
Subjective Subjective Date of Service: 06/06/25 Interval History: improving, very weak Physical Exam 2 Exam: Exam: Lethargic, oriented times 3, ill appearing, lungs clear, abdomen soft Vital Signs: Vital Signs: Last Vital Signs Temp 98.2 F 06/06/25 08:00 Pulse 87 06/06/25 08:00 Resp 18 06/06/25 08:00 BP 155/80 H 06/06/25 08:00 Pulse Ox 95 06/06/25 08:00 O2 Del Method Room Air 06/06/25 08:00 BMI result Body Mass Index 17.1 Objective Data Active Medications Acetaminophen (Acetaminophen 325 Mg Tablet) 975 mg PO Q6H PRN PRN Reason: Pain, Mild (Pain Scale 1-3) Last Admin: 06/06/25 03:43 Dose: 975 mg Documented By: MATI Aspirin (Aspirin Enteric Coated 81 Mg Tablet.) 81 mg PO DAILY [facility] Last Admin: 06/06/25 09:39 Dose: 81 mg Documented By: JAGJIT Atorvastatin Calcium (Atorvastatin Calcium 40 Mg Tablet) 40 mg PO DAILY [facility] Last Admin: 06/06/25 09:39 Dose: 40 mg Documented By: JAGJIT Calcitonin [place] (Calcitonin,[place],Synth Nasal 3.7 Ml Bottle) 1 spray NOSTRILALT DAILY [facility] Calcium Carbonate (Calcium Carbonate 750 Mg Tab.Chew) 750 mg PO Q4H PRN PRN Reason: Heartburn Dextrose (Dextrose 50 % 25 Gm/50 Ml Syringe) 25 gm IVPUSH Q15M PRN; Protocol PRN Reason: per Hypoglycemia Standing Ord. Enoxaparin Sodium (Enoxaparin Sodium 40 Mg/0.4 Ml Syringe) 40 mg SUBCUT Q24H [facility] Last Admin: 06/06/25 03:42 Dose: 40 mg Documented By: MATI Gabapentin (Gabapentin 600 Mg Tablet) 600 mg PO TID [facility] Last Admin: 06/06/25 09:39 Dose: 600 mg Documented By: JAGJIT Glucose (Glucose Gel 15 Gm Gel..Gram.) 15 gm PO Q15M PRN; Protocol PRN Reason: per Hypoglycemia Standing Ord. Hydroxychloroquine Sulfate (Hydroxychloroquine Sulfate 200 Mg Tablet) 200 mg PO MOTUWETHFR@0900 [facility] Last Admin: 06/06/25 09:39 Dose: 200 mg Documented By: JAGJIT Hydroxychloroquine Sulfate (Hydroxychloroquine Sulfate 200 Mg Tablet) 200 mg PO SUSA@0900,2100 [facility] Ceftriaxone Sodium 1 gm/ (Sodium Chloride) 50 mls @ 100 mls/hr IV Q24H [facility] Last Admin: 06/06/25 09:38 Dose: 100 mls/hr Documented By: JAGJIT Metronidazole (Flagyl) 500 mg in 100 mls @ 100 mls/hr IV Q12H [facility] Last Admin: 06/06/25 09:38 Dose: 100 mls/hr Documented By: JAGJIT Insulin Human Lispro (Insulin Lispro 100 Unit/Ml 3 Ml Vial) 0 unit SUBCUT QIDACHS [facility]; Protocol Last Admin: 06/06/25 08:02 Dose: Not Given Documented By: JAGJIT Non-Admin Reason: No Insulin Coverage Lidocaine (Lidocaine 4 % Patch Adh..Patch) 1 patch TRANSDERMA DAILY [facility]; Protocol Last Admin: 06/06/25 09:38 Dose: 1 patch Documented By: JAGJIT Magnesium Hydroxide (Milk Of Magnesia 30 Ml Oral.Susp) 30 ml PO DAILY PRN PRN Reason: Constipation Melatonin (Melatonin 3 Mg Tablet) 3 mg PO BEDTIME PRN PRN Reason: Insomnia Metoprolol Succinate (Metoprolol Succinate Er 12.5 Mg Halftab.Er.24h) 12.5 mg PO DAILY [facility]; Protocol Last Admin: 06/06/25 09:39 Dose: 12.5 mg Documented By: JAGJIT Non-Formulary Medication (Buprenorphine) 1 patch TRANSDERMA TH [facility] Ondansetron HCl (Ondansetron Hcl 4 Mg/2 Ml Vial) 4 mg IVPUSH Q8H PRN PRN Reason: Nausea and Vomiting Oseltamivir Phosphate (Oseltamivir Phosphate 75 Mg Capsule) 75 mg PO Q12H [facility] Stop: 06/09/25 22:01 Last Admin: 06/06/25 09:39 Dose: 75 mg Documented By: JAGJIT Polyethylene Glycol (Polyethylene Glycol 3350 17 Gm Powd.Pack) 17 gm PO DAILY PRN PRN Reason: Constipation Prednisone (Prednisone 2.5 Mg Tablet) 2.5 mg PO DAILY [facility] Last Admin: 06/06/25 09:39 Dose: 2.5 mg Documented By: JAGJIT Sodium Chloride (0.9 % Sodium Chloride Flush 3 Ml Syringe) 3 ml IVFLUSH QSHIFT [facility] Last Admin: 06/06/25 09:39 Dose: 3 ml Documented By: JAGJIT Tamsulosin HCl (Tamsulosin Hcl 0.4 Mg Capsule) 0.8 mg PO BEDTIME [facility] Labs 06/06/25 07:09 06/06/25 07:09 Labs: Laboratory Results - last 24 hr 06/05/25 06/05/25 06/05/25 12:08 17:08 20:20 MCV MCH MCHC RDW Plt Count MPV Absolute Nucleated RBC Nucleated RBC % (auto) Anion Gap Estim Creat Clear Calc Estimated GFR POC Glucose 141 H 159 H 148 H Random Glucose Calcium Magnesium 06/06/25 06/06/25 07:09 07:57 MCV 84.3 MCH 27.5 MCHC 32.6 RDW 15.4 Plt Count 85 L MPV 9.8 Absolute Nucleated RBC 0.000 Nucleated RBC % (auto) 0.0 Anion Gap 15 Estim Creat Clear Calc 66.8 Estimated GFR > 60 POC Glucose 125 H Random Glucose 126 H Calcium 8.1 L Magnesium 2.0 Microbiology Microbiology Results: Microbiology 06/04/25 19:38 Blood Culture - Preliminary Blood - Venous No growth after 24 hours. 06/04/25 19:43 Blood Culture - Preliminary Blood - Venous No growth after 24 hours. Assessment and Plan (1) CAD (coronary artery disease): Status: Acute Plan 85M PMH DM, CAD, moderate aortic stenosis, hypertension, rheumatoid arthritis, peripheral vascular disease status post left carotid endarterectomy presented with altered mental status and fever sepsis and acute metabolic encephalopathy due to COVID and flu, possible pneumonia Tamiflu day 2, follow up cultures Continue ceftriaxone, Flagyl ? Dilated CBD Normal LFTs, doubt obstruction Diabetes Insulin sliding scale DVT prophylaxis with Lovenox Full code reason for continued hospitalization: monitoring for defervesence Quality Stroke Does the patient have a stroke diagnosis?: No VTE Prior VTE?: No VTE Risk Level:: Medical - moderate - high VTE Device Contraindication: Treatment Not Indicated VTE Drug Contraindication: N/A - Med Ordered
[2025-06-06 11:11] VITALS: BMI 19.7
[2025-06-06 11:12] VITALS: BMI 19.7
--- NOTE | 2025-06-06 11:15 | MHC.CLN ---
PT IS MODERATELY MALNOURISHED-QUALIFIES FOR NON-SEVERE MALNUTRITION IN THE CONTEXT OF ACUTE ILLNESS PT WITH MILDLY DEPLETED SUBCUTANEOUS FAT AND MUSCLE MASS WITH 25% SIGNIFICANT WT LOSS X 1 YEAR WITH POOR PO INTAKE R/T ACUTE ILLNESS 2000DM DIET IN PLACE RECOMMEND ADDING ENSURE MAX BID TO INCREASE KCALS SUPP TO PROVIDE 300KCLAS, 60G PROTEIN MONITOR PO INTAKE AND ENCOURAGE SUPPLEMENTS SEE FULL ASSESSMENT
[2025-06-06 11:37] LABS: Glucose, Whole Blood 182 mg/dL (60-115)
[2025-06-06 12:00] VITALS: BP 180/81; PULSE 97; RESP 18; TEMP 36.2; O2SAT 95
[2025-06-06] MEDS: BUPRENORPHINE 20 MCG/HR TRANSDERMA (12:58)
--- NOTE | 2025-06-06 14:39 | MHC.CM.PN ---
Male 85 DX Flu + Covid Lives alone HCP on File [facility] transport chair and modified shower Independent with insulin pump management. PT Samreen stein STR accepted at [facility] Reports active with [facility] prior to admit. Referral sent DP to [facility] Monday06/09/25 VIA BLS
[2025-06-06 15:54] VITALS: BP 182/92; PULSE 92; RESP 18; TEMP 36.1; O2SAT 95
[2025-06-06 16:19] LABS: Glucose, Whole Blood 223 mg/dL (60-115)
--- NOTE | 2025-06-06 18:47 | PC.NURSE ---
Pt with no visible buprenorphine patch on skin check. Order placed for patch and applied to LLQ. while changing sheets later old patch found. Wasted with charge aideBRYCE Mancilla, Pharmicist notified
[2025-06-06 19:55] VITALS: BP 175/87; PULSE 86; RESP 18; TEMP 36.2; O2SAT 94
[2025-06-06 20:23] LABS: Glucose, Whole Blood 194 mg/dL (60-115)
[2025-06-07] VITALS (7 sets, daily range): BP systolic 129–170; BP diastolic 59–77; PULSE 79–90; RESP 16–20; TEMP 36.1–36.7; O2SAT 94–97
[2025-06-07 07:54] LABS: Glucose, Whole Blood 160 mg/dL (60-115)
[2025-06-07] MEDS: 0.9 % Sodium Chloride Flush 3 ML SYRINGE IVFLUSH ×3 (09:04→20:32)
[2025-06-07] MEDS: Metoprolol Succinate ER 12.5 MG HALFTAB.ER.24H PO (09:09)
[2025-06-07] MEDS: Aspirin Enteric Coated 81 MG TABLET.DR PO (09:10)
[2025-06-07] MEDS: metroNIDAZOLE/NS 500 MG/100 ML PIGGYBACK 100 MG IV ×2 (11:08→20:23)
[2025-06-07] MEDS: Lidocaine 4 % Patch ADH..PATCH 1 PATCH TRANSDERMA (11:09)
[2025-06-07] MEDS: Calcitonin,Salmon,Synth Nasal 3.7 ML BOTTLE 1 SPRAY NOSTRILALT (11:11)
--- NOTE | 2025-06-07 11:22 | P.PNIM_ITS ---
Subjective Subjective Date of Service: 06/07/25 Interval History: improving, very weak Physical Exam 2 Exam: Exam: Lethargic, oriented times 3, ill appearing, lungs clear, abdomen soft Vital Signs: Vital Signs: Last Vital Signs Temp 98.0 F 06/07/25 08:00 Pulse 85 06/07/25 08:00 Resp 18 06/07/25 08:00 BP 158/74 H 06/07/25 08:00 Pulse Ox 95 06/07/25 08:00 O2 Del Method Room Air 06/07/25 08:00 BMI result Body Mass Index 19.7 Objective Data Active Medications Acetaminophen (Acetaminophen 325 Mg Tablet) 975 mg PO Q6H PRN PRN Reason: Pain, Mild (Pain Scale 1-3) Last Admin: 06/06/25 03:43 Dose: 975 mg Documented By: MATI Aspirin (Aspirin Enteric Coated 81 Mg Tablet.) 81 mg PO DAILY [facility] Last Admin: 06/07/25 09:10 Dose: 81 mg Documented By: DEWEY Atorvastatin Calcium (Atorvastatin Calcium 40 Mg Tablet) 40 mg PO DAILY [facility] Last Admin: 06/07/25 09:09 Dose: 40 mg Documented By: DEWEY Buprenorphine (Buprenorphine 20 Mcg/Hr Patch.Tdwk) 20 mcg TRANSDERMA TH [facility] Last Admin: 06/06/25 12:58 Dose: 20 mcg Documented By: JAGJIT Calcitonin [place] (Calcitonin,[place],Synth Nasal 3.7 Ml Bottle) 1 spray NOSTRILALT DAILY [facility] Last Admin: 06/07/25 11:11 Dose: 1 spray Documented By: DEWEY Calcium Carbonate (Calcium Carbonate 750 Mg Tab.Chew) 750 mg PO Q4H PRN PRN Reason: Heartburn Dextrose (Dextrose 50 % 25 Gm/50 Ml Syringe) 25 gm IVPUSH Q15M PRN; Protocol PRN Reason: per Hypoglycemia Standing Ord. Enoxaparin Sodium (Enoxaparin Sodium 40 Mg/0.4 Ml Syringe) 40 mg SUBCUT Q24H [facility] Last Admin: 06/07/25 04:15 Dose: 40 mg Documented By: JEFE Gabapentin (Gabapentin 600 Mg Tablet) 600 mg PO TID [facility] Last Admin: 06/07/25 09:09 Dose: 600 mg Documented By: DEWEY Glucose (Glucose Gel 15 Gm Gel..Gram.) 15 gm PO Q15M PRN; Protocol PRN Reason: per Hypoglycemia Standing Ord. Hydroxychloroquine Sulfate (Hydroxychloroquine Sulfate 200 Mg Tablet) 200 mg PO MOTUWETHFR@0900 [facility] Last Admin: 06/06/25 09:39 Dose: 200 mg Documented By: JAGJIT Hydroxychloroquine Sulfate (Hydroxychloroquine Sulfate 200 Mg Tablet) 200 mg PO SUSA@0900,2100 [facility] Last Admin: 06/07/25 11:09 Dose: 200 mg Documented By: DEWEY Ceftriaxone Sodium 1 gm/ (Sodium Chloride) 50 mls @ 100 mls/hr IV Q24H [facility] Last Infusion: 06/07/25 11:08 Dose: Infused Documented By: DEWEY Metronidazole (Flagyl) 500 mg in 100 mls @ 100 mls/hr IV Q12H [facility] Last Admin: 06/07/25 11:08 Dose: 100 mls/hr Documented By: DEWEY Insulin Human Lispro (Insulin Lispro 100 Unit/Ml 3 Ml Vial) 0 unit SUBCUT QIDACHS [facility]; Protocol Last Admin: 06/07/25 09:03 Dose: 2 unit Documented By: DEWEY Lidocaine (Lidocaine 4 % Patch Adh..Patch) 1 patch TRANSDERMA DAILY [facility]; Protocol Last Admin: 06/07/25 11:09 Dose: 1 patch Documented By: DEWEY Magnesium Hydroxide (Milk Of Magnesia 30 Ml Oral.Susp) 30 ml PO DAILY PRN PRN Reason: Constipation Melatonin (Melatonin 3 Mg Tablet) 3 mg PO BEDTIME PRN PRN Reason: Insomnia Metoprolol Succinate (Metoprolol Succinate Er 12.5 Mg Halftab.Er.24h) 12.5 mg PO DAILY [facility]; Protocol Last Admin: 06/07/25 09:09 Dose: 12.5 mg Documented By: DEWEY Ondansetron HCl (Ondansetron Hcl 4 Mg/2 Ml Vial) 4 mg IVPUSH Q8H PRN PRN Reason: Nausea and Vomiting Oseltamivir Phosphate (Oseltamivir Phosphate 75 Mg Capsule) 75 mg PO Q12H [facility] Stop: 06/09/25 22:01 Last Admin: 06/07/25 09:09 Dose: 75 mg Documented By: DEWEY Polyethylene Glycol (Polyethylene Glycol 3350 17 Gm Powd.Pack) 17 gm PO DAILY PRN PRN Reason: Constipation Prednisone (Prednisone 2.5 Mg Tablet) 2.5 mg PO DAILY [facility] Last Admin: 06/07/25 09:41 Dose: 2.5 mg Documented By: DEWEY Sodium Chloride (0.9 % Sodium Chloride Flush 3 Ml Syringe) 3 ml IVFLUSH QSHIFT [facility] Last Admin: 06/07/25 09:04 Dose: 3 ml Documented By: DEWEY Tamsulosin HCl (Tamsulosin Hcl 0.4 Mg Capsule) 0.8 mg PO BEDTIME [facility] Last Admin: 06/06/25 19:48 Dose: 0.8 mg Documented By: JEFE Labs 06/06/25 07:09 06/06/25 07:09 Labs: Laboratory Results - last 24 hr 06/06/25 06/06/25 06/06/25 11:32 16:15 20:15 POC Glucose 182 H 223 H 194 H 06/07/25 07:42 POC Glucose 160 H Microbiology Microbiology Results: Microbiology 06/04/25 19:38 Blood Culture - Preliminary Blood - Venous No growth after 48 hours. 06/04/25 19:43 Blood Culture - Preliminary Blood - Venous No growth after 48 hours. Assessment and Plan (1) CAD (coronary artery disease): Status: Acute Plan 85M PMH DM, CAD, moderate aortic stenosis, hypertension, rheumatoid arthritis, peripheral vascular disease status post left carotid endarterectomy presented with altered mental status and fever sepsis and acute metabolic encephalopathy due to COVID and flu, possible pneumonia Tamiflu day 3, follow up cultures Continue ceftriaxone, Flagyl ? Dilated CBD Normal LFTs, doubt obstruction Diabetes Insulin sliding scale DVT prophylaxis with Lovenox Full code reason for continued hospitalization: awaiting auth Quality Stroke Does the patient have a stroke diagnosis?: No VTE Prior VTE?: No VTE Risk Level:: Medical - moderate - high VTE Device Contraindication: Treatment Not Indicated VTE Drug Contraindication: N/A - Med Ordered
[2025-06-07 13:01] LABS: Glucose, Whole Blood 240 mg/dL (60-115)
[2025-06-07 16:21] LABS: Glucose, Whole Blood 240 mg/dL (60-115)
[2025-06-07 20:41] LABS: Glucose, Whole Blood 309 mg/dL (60-115)
[2025-06-08] VITALS (7 sets, daily range): BP systolic 138–172; BP diastolic 64–92; PULSE 64–88; RESP 16–20; TEMP 36.1–36.9; O2SAT 96–98
[2025-06-08 07:57] LABS: Glucose, Whole Blood 187 mg/dL (60-115)
[2025-06-08 08:17] LABS: Hematocrit 33.3 % (42.0-52.0); Hemoglobin 10.9 g/dl (14.0-18.0); Mean Corpuscular HGB Conc 32.7 g/dl (31.0-36.0); Mean Corpuscular Hemoglobin 27.5 pg (27.0-33.0); Mean Corpuscular Volume 84.1 fL (80.0-98.0); NRBC Abs Auto 0.000 X10*3/uL (0.0-0.012); NRBC Pct Auto 0.0 /100WBC (0.0-0.2); Red Blood Count 3.96 X10*6/uL (4.60-5.80); White Blood Count 3.7 X10*3/uL (4.8-10.8)
[2025-06-08 08:19] LABS: Platelet Count 91 X10*3/uL (160-400)
[2025-06-08 08:35] LABS: Anion Gap 13 (12-20); Blood Urea Nitrogen 17 mg/dL (9-16); Calcium 8.4 mg/dL (8.4-10.2); Carbon Dioxide 22 mmol/L (22-29); Chloride 111 mmol/L (96-108); Creatinine Clr Calc Pharmacy 75.1; Estimated Glomerular Filt Rate > 60; Magnesium 2.0 mg/dL (1.6-2.6); Potassium 3.0 mmol/L (3.3-5.1); Sodium 143 mmol/L (135-145)
[2025-06-08] MEDS: Aspirin Enteric Coated 81 MG TABLET.DR PO (09:25)
[2025-06-08] MEDS: Metoprolol Succinate ER 12.5 MG HALFTAB.ER.24H PO (09:25)
[2025-06-08] MEDS: Lidocaine 4 % Patch ADH..PATCH 1 PATCH TRANSDERMA (09:30)
[2025-06-08] MEDS: Potassium Chloride ER 20 MEQ TAB.ER.PRT 40 MEQ PO (09:41)
--- NOTE | 2025-06-08 10:26 | HO.PM.IMPN ---
Subjective Subjective Date of Service: 06/08/25 Interval History: right knee with fluid filled cyst Physical Exam Exam: Exam: General: AO X 3, no acute distress, frail Resp: CTA bilateral, no accessory muscles used CVS: S1,S2,RRR GI: soft, non tender, non distended Neuro: motor grossly intact, alert Psych: appropriate affect, appropriate insight right knee, lateral synovial cyst Vital Signs: Vital Signs: Last Vital Signs Temp 97.7 F 06/08/25 07:45 Pulse 88 06/08/25 07:45 Resp 20 06/08/25 07:45 BP 151/65 H 06/08/25 07:45 Pulse Ox 98 06/08/25 07:45 O2 Del Method Room Air 06/08/25 07:45 BMI result Body Mass Index 19.7 Objective Data Active Medications Acetaminophen (Acetaminophen 325 Mg Tablet) 975 mg PO Q6H PRN PRN Reason: Pain, Mild (Pain Scale 1-3) Last Admin: 06/07/25 20:20 Dose: 975 mg Documented By: JEFE Aspirin (Aspirin Enteric Coated 81 Mg Tablet.Dr) 81 mg PO DAILY [facility] Last Admin: 06/08/25 09:25 Dose: 81 mg Documented By: DEWEY Atorvastatin Calcium (Atorvastatin Calcium 40 Mg Tablet) 40 mg PO DAILY [facility] Last Admin: 06/08/25 09:25 Dose: 40 mg Documented By: DEWEY Buprenorphine (Buprenorphine 20 Mcg/Hr Patch.Tdwk) 20 mcg TRANSDERMA TH [facility] Last Admin: 06/06/25 12:58 Dose: 20 mcg Documented By: JAGJIT Calcitonin [place] (Calcitonin,[place],Synth Nasal 3.7 Ml Bottle) 1 spray NOSTRILALT DAILY [facility] Last Admin: 06/08/25 09:43 Dose: Not Given Documented By: DEWEY Non-Admin Reason: Patient Refused Calcium Carbonate (Calcium Carbonate 750 Mg Tab.Chew) 750 mg PO Q4H PRN PRN Reason: Heartburn Dextrose (Dextrose 50 % 25 Gm/50 Ml Syringe) 25 gm IVPUSH Q15M PRN; Protocol PRN Reason: per Hypoglycemia Standing Ord. Enoxaparin Sodium (Enoxaparin Sodium 40 Mg/0.4 Ml Syringe) 40 mg SUBCUT Q24H [facility] Last Admin: 06/08/25 01:58 Dose: 40 mg Documented By: JEFE Gabapentin (Gabapentin 600 Mg Tablet) 600 mg PO TID [facility] Last Admin: 06/08/25 09:25 Dose: 600 mg Documented By: DEWEY Glucose (Glucose Gel 15 Gm Gel..Gram.) 15 gm PO Q15M PRN; Protocol PRN Reason: per Hypoglycemia Standing Ord. Hydroxychloroquine Sulfate (Hydroxychloroquine Sulfate 200 Mg Tablet) 200 mg PO MOTUWETHFR@0900 [facility] Last Admin: 06/06/25 09:39 Dose: 200 mg Documented By: JAGJIT Hydroxychloroquine Sulfate (Hydroxychloroquine Sulfate 200 Mg Tablet) 200 mg PO SUSA@0900,2100 [facility] Last Admin: 06/08/25 09:25 Dose: 200 mg Documented By: DEWEY Ceftriaxone Sodium 1 gm/ (Sodium Chloride) 50 mls @ 100 mls/hr IV Q24H [facility] Last Admin: 06/08/25 09:42 Dose: 100 mls/hr Documented By: DEWEY Metronidazole (Flagyl) 500 mg in 100 mls @ 100 mls/hr IV Q12H [facility] Last Infusion: 06/07/25 21:39 Dose: Infused Documented By: JEFE Insulin Human Lispro (Insulin Lispro 100 Unit/Ml 3 Ml Vial) 0 unit SUBCUT QIDACHS [facility]; Protocol Last Admin: 06/08/25 09:24 Dose: 2 unit Documented By: DEWEY Lidocaine (Lidocaine 4 % Patch Adh..Patch) 1 patch TRANSDERMA DAILY [facility]; Protocol Last Admin: 06/08/25 09:30 Dose: 1 patch Documented By: DEWEY Magnesium Hydroxide (Milk Of Magnesia 30 Ml Oral.Susp) 30 ml PO DAILY PRN PRN Reason: Constipation Melatonin (Melatonin 3 Mg Tablet) 3 mg PO BEDTIME PRN PRN Reason: Insomnia Last Admin: 06/07/25 20:24 Dose: 3 mg Documented By: JEFE Metoprolol Succinate (Metoprolol Succinate Er 12.5 Mg Halftab.Er.24h) 12.5 mg PO DAILY [facility]; Protocol Last Admin: 06/08/25 09:25 Dose: 12.5 mg Documented By: DEWEY Ondansetron HCl (Ondansetron Hcl 4 Mg/2 Ml Vial) 4 mg IVPUSH Q8H PRN PRN Reason: Nausea and Vomiting Oseltamivir Phosphate (Oseltamivir Phosphate 75 Mg Capsule) 75 mg PO Q12H [facility] Stop: 06/09/25 22:01 Last Admin: 06/08/25 09:26 Dose: 75 mg Documented By: DEWEY Polyethylene Glycol (Polyethylene Glycol 3350 17 Gm Powd.Pack) 17 gm PO DAILY PRN PRN Reason: Constipation Prednisone (Prednisone 2.5 Mg Tablet) 2.5 mg PO DAILY [facility] Last Admin: 06/08/25 09:25 Dose: 2.5 mg Documented By: DEWEY Sodium Chloride (0.9 % Sodium Chloride Flush 3 Ml Syringe) 3 ml IVFLUSH QSHIFT [facility] Last Admin: 06/08/25 09:26 Dose: Not Given Documented By: DEWEY Non-Admin Reason: IV Running Tamsulosin HCl (Tamsulosin Hcl 0.4 Mg Capsule) 0.8 mg PO BEDTIME [facility] Last Admin: 06/07/25 20:19 Dose: 0.8 mg Documented By: JEFE Labs 06/08/25 07:25 06/08/25 07:25 Labs: Laboratory Results - last 24 hr 06/07/25 06/07/25 06/07/25 12:58 16:13 20:18 MCV MCH MCHC RDW Plt Count MPV Absolute Nucleated RBC Nucleated RBC % (auto) Anion Gap Estim Creat Clear Calc Estimated GFR POC Glucose 240 H 240 H 309 H Random Glucose Calcium Magnesium 06/08/25 06/08/25 07:25 07:42 MCV 84.1 MCH 27.5 MCHC 32.7 RDW 15.4 Plt Count 91 L MPV 10.5 Absolute Nucleated RBC 0.000 Nucleated RBC % (auto) 0.0 Anion Gap 13 Estim Creat Clear Calc 75.1 Estimated GFR > 60 POC Glucose 187 H Random Glucose 199 H Calcium 8.4 Magnesium 2.0 Assessment and Plan (1) CAD (coronary artery disease): Status: Acute Plan 85M PMH DM, CAD, moderate aortic stenosis, hypertension, rheumatoid arthritis, peripheral vascular disease status post left carotid endarterectomy presented with altered mental status and fever sepsis and acute metabolic encephalopathy due to COVID and flu, possible pneumonia Tamiflu day 4, follow up cultures Continue ceftriaxone, Flagyl right knee synovial cyst asymptomatic ? Dilated CBD Normal LFTs, doubt obstruction Diabetes Insulin sliding scale DVT prophylaxis with Lovenox Full code reason for continued hospitalization: awaiting auth Quality Stroke Does the patient have a stroke diagnosis?: No VTE Prior VTE?: No VTE Risk Level:: Medical - moderate - high VTE Device Contraindication: Treatment Not Indicated VTE Drug Contraindication: N/A - Med Ordered
[2025-06-08] MEDS: metroNIDAZOLE/NS 500 MG/100 ML PIGGYBACK 100 MG IV (10:46)
[2025-06-08 11:36] LABS: Glucose, Whole Blood 317 mg/dL (60-115)
[2025-06-08 16:47] LABS: Glucose, Whole Blood 267 mg/dL (60-115)
[2025-06-08 21:01] LABS: Glucose, Whole Blood 263 mg/dL (60-115)
[2025-06-08] MEDS: 0.9 % Sodium Chloride Flush 3 ML SYRINGE IVFLUSH (21:36)
[2025-06-09 03:51] VITALS: BP 128/60; PULSE 65; RESP 18; TEMP 36.3; O2SAT 97
[2025-06-09 07:16] VITALS: BP 152/77; PULSE 78; RESP 18; TEMP 36.2; O2SAT 94
[2025-06-09 07:41] LABS: Glucose, Whole Blood 141 mg/dL (60-115)
[2025-06-09 08:45] VITALS: BP 152/77; PULSE 78
[2025-06-09] MEDS: Metoprolol Succinate ER 12.5 MG HALFTAB.ER.24H PO (08:45)
[2025-06-09] MEDS: Aspirin Enteric Coated 81 MG TABLET.DR PO (08:45)
[2025-06-09] MEDS: Lidocaine 4 % Patch ADH..PATCH 1 PATCH TRANSDERMA (08:46)
[2025-06-09] MEDS: 0.9 % Sodium Chloride Flush 3 ML SYRINGE IVFLUSH (08:54)
--- NOTE | 2025-06-09 09:00 | PM.DS ---
DS: Providers Provider Date of admission: 06/05/25 00:34 Date of discharge: 06/09/25 Primary care physician: Unknown Physician DS: Diagnosis Discharge Diagnosis (1) CAD (coronary artery disease): Status: Acute DS: Summary Hospital Course Hospital Course: from initial hpi: 85-year-old male with a history of diabetes on insulin pump, thrombocytopenia, coronary artery disease, aortic stenosis, hypertension, rheumatoid arthritis (on immunosuppressants), and prior left carotid endarterectomy was found by family after two days with altered mental status. He was febrile (Tmax 101.8?F), hypertensive, and tachycardic on arrival. History is limited due to encephalopathy. In the ED he was noted to be retaining urine thereby a catheter was inserted (Olguin catheter placement (after failed straight cath due to enlarged prostate)). Diagnostic studies Laboratory:Leukopenia (WBC 3.4), anemia (Hgb 12.3), and significant thrombocytopenia (Plt 108). Mildly low RBC and Hct.. Renal function and electrolytes within normal limits. Lactic Acid: Elevated at 2.6 mmol/L, improved to 1.7 after IV fluids. Urinalysis: Trace protein, moderate blood, 11?20 RBC/HPF, no significant WBCs or bacteria. Beta-hydroxybutyrate elevated (1.03). Imaging: CT head negative for acute pathology. CT chest showed bronchial thickening and possible consolidation. CT abdomen/pelvis showed possible cystitis. ED TX: IV levofloxacin, IV acetaminophen, IV fluids (Lactated Ringer?s, 30 ml/kg) IM haloperidol and IM midazolam (for agitation/encephalopathy) hospital course: Patient was admitted for sepsis and acute metabolic encephalopathy due to COVID and flu with possible pneumonia. Was treated with 5 day course of Tamiflu as well as ceftriaxone and Flagyl, sepsis resolved, mental status returned to baseline. On discharge he will continue 5 more days of Ceftin. Incidentally noted to have right knee synovial cyst which is asymptomatic. Also incidentally noted to have dilated CBD but with normal LFTs and no abdominal pain unlikely to be obstructed. For diabetes was continued on insulin sliding scale, on discharge his Lantus has been decreased to 40 units as his sugars have not been particularly high, this can be adjusted as outpatient. For deconditioning was seen by physical therapy recommended short-term rehab to which patient will be discharged. He is expected require less than 30 days. Time Attestation Discharge Coordination Time (in mins): 35 Quality: Safe Use of Opioids Does Pt have an Active Cancer Diagnosis on the Problem List?: No Quality: Stroke Does the patient have a stroke diagnosis?: No Physical Exam Exam: Exam: General: AO X 3, no acute distress, frail Resp: CTA bilateral, no accessory muscles used CVS: S1,S2,RRR GI: soft, non tender, non distended Neuro: motor grossly intact, alert Psych: appropriate affect, appropriate insight right knee, lateral synovial cyst Vital Signs: Vital Signs: Last Vital Signs Temp 97.2 F 06/09/25 07:16 Pulse 78 06/09/25 08:45 Resp 18 06/09/25 07:16 BP 152/77 H 06/09/25 08:45 Pulse Ox 94 06/09/25 07:16 O2 Del Method Room Air 06/09/25 07:16 BMI result Body Mass Index 19.7 DS: Data Data Completed and Pending Completed studies during hospitalization [Text1]: Procedures Extirpation of Matter from Left External Carotid Artery, Open Approach (02/15/23) Supplement Left External Carotid Artery with Synthetic Substitute, Open Approach (02/15/23) Labs on day of discharge: Laboratory Results - last 24 hr 06/08/25 06/08/25 06/08/25 11:17 16:29 20:56 POC Glucose 317 H 267 H 263 H 06/09/25 07:35 POC Glucose 141 H Preliminary micro results at discharge 06/04/25 19:38 Blood Culture - Preliminary Blood - Venous No growth after 48 hours. 06/04/25 19:43 Blood Culture - Preliminary Blood - Venous No growth after 48 hours. Discharge Plan Discharge Anticipated Discharge Date/Time: 06/09/25 08:56 Patient Disposition: Xfer SNF Discharge Diagnosis: flu, covid Referrals: Physician,Unknown J [Primary Care Provider, Medical] - 1 Week Discharge Medications: New cefuroxime axetil 500 mg tablet 500 mg PO BID Qty: 10 0RF Continued prednisone 2.5 mg tablet 2.5 mg PO DAILY Qty: 90 1RF calcium citrate 200 mg (950 mg) Tablet 800 mg PO BID atorvastatin 80 mg Tablet 40 mg PO DAILY calcitonin (salmon) 200 unit/actuation Aurelia,Non-Aerosol 1 spray INTRANASAL (ALT) DAILY metoprolol succinate 25 mg Tablet Extended Release 24 Hr 12.5 mg PO DAILY hydroxychloroquine 200 mg Tablet 200 mg PO MOTUWETHFR@0900 fluticasone propionate 50 mcg/actuation Aurelia,Suspension 1 spray INTRANASAL BID Rx Instructions: administer into each nostril sodium chloride 0.65 % Aerosol,Aurelia 2 spray INTRANASAL BID psyllium seed (sugar) Powder 2 tbsp PO DAILY Prolia 60 mg/mL Syringe 60 mg SUBCUT [id number] hydroxychloroquine 200 mg tablet 200 mg PO SUSA@0900,2100 Rx Instructions: Take 1 tab daily Mon - Fri and 1 tab twice a day Sat-Sun Do not take with citalopram Lactobacillus acidophilus 1 billion cell Tablet 1,000 mmu cells PO DAILY aspirin 81 mg Tablet,Delayed Release (Dr/Ec) 81 mg PO DAILY Qty: 90 0RF celecoxib [Celebrex] 100 mg capsule 100 mg PO BID 14 Days Qty: 28 0RF PreserVision AREDS [id number] capsule 1 cap PO BID tamsulosin 0.4 mg capsule 0.8 mg PO BEDTIME cyclobenzaprine 10 mg tablet 10 mg PO DAILY PRN (Reason: Muscle Spasm) furosemide 20 mg tablet 20 mg PO DAILY buprenorphine 20 mcg/hour patch weekly 1 patch transdermal TH cholecalciferol (vitamin D3) 50 mcg (2,000 unit) capsule 50 mcg PO DAILY gabapentin 600 mg tablet 600 mg PO TID Qty: 270 1RF Changed insulin aspart U-100 100 unit/mL Solution 40 unit SUBCUT DAILY Qty: 10 0RF Rx Instructions: Use with continuous insulin infusion device. Discharge Orders: Discharge Order (Routine); Ordered 06/09/25 Ordered By: Gaurang Pool Diet: Advance to usual diet Activity on Discharge: As tolerated Stand Alone Forms: Patient Portal Discharge page Print Language: Malay Care Plan Goals: recovery Health Concerns: flu, covid, pna Plan of Treatment: 5 more days ceftin Assessment: see above
--- NOTE | 2025-06-09 10:20 | MHC.CM.PN ---
Pt. to DC today to [facility] for STR via BLS.
--- NOTE | 2025-06-09 10:32 | PC.NURSE ---
Per Dr. Pool's order ng cath remove at 1024 and voiding trial started; pt tolerated well; Voiding trial started and pt due to void at 1624; Receiving facility called and report given; facility aware of the voiding trial. Safety and fall precautions maintained and call appiah within reach.
== END 2025-06-09 11:29 | disposition skilled nursing facility (03) | DRG 871 ==
LOC: HO.ED 20:36 → HO.EDOVER 06-05 00:53 → HO.IMC 06-05 15:49
PROVIDERS: Admitting Provider Family Medicine; Emergency Provider Student in an Organized Health Care Education/Training Program; PCP Physician Assistant; Visit Provider Internal Medicine
DX: A41.89 Other specified sepsis (principal); G93.41 Metabolic encephalopathy; U07.1 COVID-19; K83.1 Obstruction of bile duct; J10.00 Influenza due to other identified influenza virus with unspecified type of pneumonia; F05 Delirium due to known physiological condition; I25.10 Atherosclerotic heart disease of native coronary artery without angina pectoris; M06.00 Rheumatoid arthritis without rheumatoid factor, unspecified site; E11.9 Type 2 diabetes mellitus without complications; D69.6 Thrombocytopenia, unspecified; J10.81 Influenza due to other identified influenza virus with encephalopathy; Z96.41 Presence of insulin pump (external) (internal); I35.0 Nonrheumatic aortic (valve) stenosis; Z87.891 Personal history of nicotine dependence; Z79.82 Long term (current) use of aspirin; Z79.4 Long term (current) use of insulin; Z79.899 Other long term (current) drug therapy
CPT/HCPCS: 36415; 70450; 71045; 71260; 74177; 76705; 80048; 80053; 81001; 82010; 82550; 82803; 82947; 83605; 83735; 83880; 84443; 85025; 85027; 87040; 87637; 93005; 97162; 99285; J0131; J0360; J0696; J1630; J1650; J1836; J1956; J2250; J3360; J7120; Q9967

== ENCOUNTER → 2025-06-04 19:33 | Outpatient (BNV) | payer OTHER, SELFPAY | PROVIDERS: Admitting Provider Family Medicine; Emergency Provider Student in an Organized Health Care Education/Training Program; Visit Provider Internal Medicine Cardiovascular Disease | DX: I44.4 Left anterior fascicular block (principal); I25.2 Old myocardial infarction | CPT/HCPCS: 93010 ==

== ENCOUNTER → 2025-06-04 19:35 | Outpatient (BNV) | payer OTHER, SELFPAY | PROVIDERS: Emergency Provider Student in an Organized Health Care Education/Training Program; Visit Provider Radiology Diagnostic Radiology | DX: A41.9 Sepsis, unspecified organism (principal); K83.8 Other specified diseases of biliary tract; N32.89 Other specified disorders of bladder | CPT/HCPCS: 70450; 71045; 71260; 74177 ==

== ENCOUNTER 2025-06-05 00:34 | Outpatient (BNV) | payer OTHER, SELFPAY | END 2025-06-05 10:20 | PROVIDERS: Admitting Provider Family Medicine; Emergency Provider Student in an Organized Health Care Education/Training Program; Visit Provider Radiology Diagnostic Radiology | DX: K83.8 Other specified diseases of biliary tract (principal) | CPT/HCPCS: 76705 ==

== ENCOUNTER 2025-06-05 00:34 | Outpatient (BNV) | payer OTHER, SELFPAY | END 2025-06-05 05:07 | PROVIDERS: Admitting Provider Family Medicine; Emergency Provider Student in an Organized Health Care Education/Training Program; Visit Provider Internal Medicine Cardiovascular Disease | DX: I44.4 Left anterior fascicular block (principal); I51.7 Cardiomegaly; R00.0 Tachycardia, unspecified | CPT/HCPCS: 93010 ==

== ENCOUNTER → 2025-06-05 00:34 | Outpatient (BNV) | payer OTHER, SELFPAY | PROVIDERS: Admitting Provider Family Medicine; Emergency Provider Student in an Organized Health Care Education/Training Program; Visit Provider Family Medicine | DX: A41.9 Sepsis, unspecified organism (principal); G93.41 Metabolic encephalopathy | CPT/HCPCS: 99222; 99499 ==